=== PATIENT | female | born 1965 | race Caucasian/White ===

== ENCOUNTER 2017-11-07 18:32 | Observation (INO) | payer MEDICAID, SELFPAY ==
[2017-11-07] VITALS (9 sets, daily range): BP systolic 114–149; BP diastolic 57–86; PULSE 70–102; RESP 14–20; TEMP 36.5–36.9; O2SAT 94–95; BMI 30.5; BMI 30.2; BMI 30.3
--- NOTE | 2017-11-07 19:08 | EKG12_ITS ---
Test Reason : CP Blood Pressure : / mmHG Vent. Rate : 100 BPM Atrial Rate : 100 BPM P-R Int : 000 ms QRS Dur : 124 ms QT Int : 400 ms P-R-T Axes : 031 097 021 degrees QTc Int : 516 ms Ventricular-paced rhythm Biventricular pacemaker detected Abnormal ECG Confirmed by OLE MCCOY ([id number]), supervising film or videotape editor RADHA BETTS ([id number]) on 11/12/2017 2:43:54 PM Referred By: AMBIKA
--- NOTE | 2017-11-07 19:08 | RAD_ITS ---
STUDY: X-RAY CHEST REASON FOR EXAM: Female, 52 years old. Chest pain, headache TECHNIQUE: Single frontal view COMPARISON: February 05, 2017 FINDINGS: Stable left-sided pacemaker. The lungs are clear and expanded. There is no demonstrated pleural abnormality. Normal size heart. Normal mediastinum and remy. Normal visualized pulmonary arteries. Normal visualized aortic arch and descending thoracic aorta. Normal visualized thoracic spine. Normal visualized ribs, clavicles, and shoulders. There is no demonstrated abnormality of the visualized soft tissue structures of the upper abdomen. RAD/Chest 1 View (Portable) IMPRESSION: Normal x-ray examination of the chest. Electronically Signed: Franko Zurita DO at 19:30 EDT Tel [phone], Service support ,
[2017-11-07 19:26] LABS: Absolute Lymphocyte Count 1.99 X10^3/ul (0.83-4.51); Absolute Neutrophil Count 4.9 X10^3/uL (2.0-7.7); Basophil# 0.02 X10^3/uL; Basophil% 0.3 % (0-1); Eosinophil# 0.15 X10^3/uL; Hematocrit 36.4 % (37-47); Hemoglobin 11.5 g/dl (12.0-15.0); Lymphocyte # 1.99 X10^3/ul (4.0); Lymphocyte % 26.2 % (19-41); Mean Corp Hgb Conc 31.6 g/gl (32-36); Mean Corpuscular Hgb 27.4 pg (27.0-32.0); Mean Corpuscular Volume 86.7 fL (81-99); Mean Platelet Vol. 10.3 fl (6.2-12.0); Monocyte# 0.56 X10^3/uL; Monocyte% 7.4 % (0-10); Neutrophil # 4.85 X10^3/uL (2.7-7.7); Neutrophil % 63.7 % (47-70); Platelet Count 235 K/mm3 (150-450); RBC Distribution Width CV 15.3 % (11.6-14.6); RBC Distribution Width SD 48.5 fl (35.1-43.9); White Blood Count 7.6 K/mm3 (4.4-11.0)
[2017-11-07 19:28] LABS: POSITIVE COUNT NO; POSITIVE DIFFERENTIAL NO; POSITIVE MORPHOLOGY NO
[2017-11-07 19:55] LABS: Anion Gap 7 (5-15); BUN 14 mg/dL (7-18); BUN/Creat Ratio 15.4 RATIO (10-20); Calcium,Total 9.6 mg/dL (8.5-10.1); Chloride 103 mmol/L (98-107); Creatinine, Serum 0.91 mg/dL (0.55-1.02); EST Glomerular Filtration Rate 69 mL/min (>60); Est Glom Filt Rate - Afr Amer 84 mL/min (>60); Estimated Creatinine Clearance 76.44 ml/min; Glucose 184 mg/dL (74-106); Potassium 3.9 mmol/L (3.5-5.1); Sodium Level 138 mmol/L (136-145)
[2017-11-07] MEDS: Aspirin 81 MG TAB.CHEW PO (19:59)
--- NOTE | 2017-11-07 20:47 | ED.VISSUMM ---
- ER Visit Summary Date of Service: 11/07/17 Chief Complaint: Chest pain History of Present Illness: The patient is a 52 F sudden chest tightness at rest at 4 PM while sitting. No radicular symptoms. Complains of dyspnea. Dry allergic cough per patient. Denies tobacco history. Currently pain is a 7 out of 10. History of nonischemic cardiomyopathy, AICD placed in 2014 at [facility]. She states she had a heart cath at that time with no stenting. Diabetes, hypertension, hypercholesterolemia history. [facility] saw her special agent group insurance Dr. Isaacs on the . [place] saw him for racing heart. Holter monitor placed. Initially stated that she had a stress test at that time, however later found out it was an echocardiogram. Denies [place] history. Mom and dad with MIs in their 50s. Patient took a baby aspirin prior to arrival. No other complaints. Physical Examination: General: Alert and oriented ?3, no acute distress HEENT: Normocephalic, atraumatic. Moist mucosa membranes Neck: supple, nontender. Cardiovascular: Regular rate and rhythm, no murmurs Respiratory: Normal breath sounds, symmetric, no distress Abdomen: Soft, nontender, nondistended Extremities: Nontender, no edema, pulses intact ?4 Neuro: no focal neurological deficits. Test Results: EKG ventricular paced at 100, no ST or T-wave changes. Chest x-ray negative. Troponin negative. Emergency Department Course and Treatment: Patient EKG notes a paced rhythm. Given additional aspirin nitro series. Chest x-ray negative. Cardiac workup negative. Patient with moderate improvement with NTG. Discussed with hospitalist, Dr. Smith, evaluated the patient for admission. Heart score = 4. Treatment Plan: [] Disposition: admit Impression: Acute chest pain This note was generated with [employer] dictation software. It may contain incorrect words, spelling, and punctuation that were not noted in review of the chart prior to signing ED Disposition - Plan for ED Patient: Disposition: Acute Care Hospital [facility] Chief Complaint: Chest Pain Diagnosis: Chest pain Referrals: Mello Hull MD [Primary Care Provider] -
--- NOTE | 2017-11-07 20:52 | ED.DCSUM_ITS ---
- ER Visit Summary Date of Service: 11/07/17 Chief Complaint: Chest pain History of Present Illness: The patient is a 52 F sudden chest tightness at rest at 4 PM while sitting. No radicular symptoms. Complains of dyspnea. Dry allergic cough per patient. Denies tobacco history. Currently pain is a 7 out of 10. History of nonischemic cardiomyopathy, AICD placed in 2014 at [facility]. She states she had a heart cath at that time with no stenting. Diabetes, hypertension, hypercholesterolemia history. 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 Isaacs on the . [place] saw him for racing heart. Holter monitor placed. Initially stated that she had a stress test at that time, however later found out it was an echocardiogram. Denies [place] history. Mom and dad with MIs in their 50s. Patient took a baby aspirin prior to arrival. No other complaints. Physical Examination: General: Alert and oriented ?3, no acute distress HEENT: Normocephalic, atraumatic. Moist mucosa membranes Neck: supple, nontender. Cardiovascular: Regular rate and rhythm, no murmurs Respiratory: Normal breath sounds, symmetric, no distress Abdomen: Soft, nontender, nondistended Extremities: Nontender, no edema, pulses intact ?4 Neuro: no focal neurological deficits. Test Results: EKG ventricular paced at 100, no ST or T-wave changes. Chest x- ray negative. Troponin negative. Emergency Department Course and Treatment: Patient EKG notes a paced rhythm. Given additional aspirin nitro series. Chest x-ray negative. Cardiac workup negative. Patient with moderate improvement with NTG. Discussed with hospitalist , Dr. Smith, evaluated the patient for admission. Heart score = 4. Treatment Plan: [] Disposition: admit Impression: Acute chest pain This note was generated with MD [employer] dictation software. It may contain incorrect words, spelling, and punctuation that were not noted in review of the chart prior to signing ED Disposition - Plan for ED Patient: Disposition: Acute Care Hospital [facility] Chief Complaint: Chest Pain Diagnosis: Chest pain Referrals: Mello Hull MD [Primary Care Provider] -
--- NOTE | 2017-11-07 21:04 | PCM.HP.STD ---
Problem List (1) Chest pain Status: Acute Qualifiers: Chest pain type: chest pain on breathing Qualified Code(s): R07.1 - Chest pain on breathing; R07.81 - Pleurodynia History of Present Illness Date of Admission: 11/07/17 Chief Complaint: Chest [id number] in nature, worse on inspiration and coughing The patient is a 52 year old F who was seen in the emergency room at [facility] with chief complaint of precordial chest pain, it is nonradiating down her arm, up into her neck or through to her back. She describes the pain as being squeezing in nature, it started when she was at rest this afternoon approximately 4 hours ago, it was not accompanied by any diaphoresis, nausea, or vomiting. Patient rated the pain as being a 9 out of 10, she was given a nitroglycerin in the emergency room and at the time of my examination, she says it is 4 out of 10 with 10 being the worst pain. Patient does say that her chest pain worsens with cough or deep inspiration. Workup was performed in the emergency room which included an EKG which showed a paced rhythm at 100, chest x-ray was unremarkable except for the presence of an ICD, patient's labs were remarkable for an elevated blood sugar at 184, patient's troponin was unremarkable. On my examination, I was able to reproduce the patient's chest discomfort by pushing on her chest, she confirmed that this was the same discomfort that she was experiencing. 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 Patient has a history of a nonischemic cardiomyopathy and had a cardiac catheterization in 2014-she does not seem to know the results of this catheterization however. I was able to get some information from her high school coach Dr. Isaacs, he states that she had an echocardiogram performed in 2016 which showed an EF of 50%, he has no record of her ever having a stress test in his medical records. He states an event monitor was placed on the patient this month because she complained of palpitations. Since the patient is a type II diabetic, I feel she should be placed in observation status and have an echocardiogram tomorrow and a stress test. Patient is in agreement with this. Past Medical History Past Medical History (Chronic Problems): Chronic Problems (Last Reviewed 10/07/17 @ 11:55 by Carmelita Fernandes) Diabetes mellitus type 2 in obese (Chronic) Hypertension (Chronic) Restless leg syndrome (Chronic) Allergies simvastatin Allergy (Severe, Verified 10/07/17 11:55) Unknown Latex, Natural Rubber Allergy (Unknown, Verified 10/07/17 11:55) Rash Home Medications: Ambulatory Orders Medication Instructions Recorded Aspirin E.C. [Ecotrin] 81 mg PO DAILY@0800 04/18/13 Enalapril Maleate [Vasotec] 1.25 mg PO DAILY #30 tab 04/24/13 Furosemide [Lasix] 40 mg PO DAILY #30 tab 04/24/13 Magnesium Oxide [Mag-Ox 400] 400 mg PO BID #30 tab 06/01/13 pen needle, diabetic 31 gauge x See Dose Instructions .ROUTE 06/24/1707/18 .MEDSUPPLY #30 ea pen needle, diabetic 31 gauge x See Dose Instructions .ROUTE 06/24/1711/27 .MEDSUPPLY #100 ea pen needle, diabetic 29 gauge x See Dose Instructions .ROUTE 07/02/1707/16 .MEDSUPPLY #50 ea alogliptin 25 mg tablet 25 mg PO QDAY 08/12/17 atorvastatin 10 mg tablet 10 mg PO QDAY 08/12/17 carvedilol 12.5 mg tablet 25 mg PO BID tab 08/12/17 loratadine 10 mg tablet 10 mg PO QDAY 08/12/17 oxybutynin chloride 5 mg tablet 5 mg PO TID 08/12/17 pantoprazole 40 mg tablet,delayed 40 mg PO BID tab 08/12/17 release pramipexole 0.25 mg tablet 0.75 mg PO QDAY tab 08/12/17 spironolactone 25 mg tablet 25 mg PO QDAY 08/12/17 blood sugar diagnostic strips See Dose Instructions .ROUTE 10/07/17 .MEDSUPPLY #100 ea insulin glargine (U-100) 100 21 unit SC QDAY #15 ml 10/07/17 unit/mL (3 mL) subcutaneous pen insulin syringe-needle U-100 0.3 See Dose Instructions .ROUTE 10/07/17 mL 31 gauge x 11/27 .MEDSUPPLY #90 ea repaglinide 2 mg tablet See Label Instructions PO TID #240 10/07/17 tab metformin 500 mg tablet 500 mg PO .COMPLEX #150 tab 10/28/17 Surgical History: appendectomy, hysterectomy, - - Knee surgery, ICD placement Psychiatric History: No pertinent psych hx SOCIAL SERVICE MANAGER History: No pertinent SOCIAL SERVICE MANAGER history Lives: - - Patient lives with [id number] 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 Smoking Status: Never smoker Tobacco Use: Non-smoker Alcohol: Rare Drugs: None - *Family History Maternal History Items: Heart Disease - In her 50s-60s Paternal History Items: Heart Disease - At age 55 Review of Systems Constitutional: Denies: Anorexia, Chills, Fever, Night Sweats, Malaise, Weakness, Weight Change, Fatigue Eyes: Denies: Blurred vision, Cataracts, Conjunctivae Inflammation, Double vision, Drainage, Eyelid Inflammation, Pain HEENT: Denies: Difficulty Hearing, Difficulty Swallowing, Dysphasia, Ear Pain, Eye Pain, Head Aches, Hearing Changes, Nasal bleeding, Nasal Congestion, Post Nasal Drip Cardiovascular: Reports: Chest Pain, Chest Tightness. Denies: Claudication, Chest Pressure, Edema, Heaviness, Light Headedness, Orthopnea, Palpitations, Syncope Respiratory: Reports: Pleuritic Pain. Denies: Cough, Hemoptysis, Shortness of Breath, Shortness of breath at rest, Shortness of breath upon exertion, Sputum production, Wheezing Gastrointestinal: Denies: Abdominal Pain, Constipation, Diarrhea, Hematemesis, Hematochezia, Nausea, Melena, Vomiting Genitourinary: Denies: Dysuria, Frequency, Hematuria, Hesitancy, Incontinence, Nocturia, Urgency Gynecological: Denies: Breast symptoms Musculoskeletal: Denies: Back Pain, Foot Pain, Hand Pain, Joint Pain, Joint stiffness, Joint swelling, Joint Tenderness, Leg Pain Skin: Denies: Dryness, Jaundice, Pruritis, Rash Neurological: Denies: Balance problems, Blurred vision, Double vision, Slurred speech, Difficulty swallowing, Focal weakness, Headaches, Incoordination, Numbness, Tingling Psychiatric: Denies: Anxiety, Depression, Homicidal Ideations, Suicidal Ideations Endocrine: Denies: Change in Body Habitus, Heat/ Cold Intolerance, Polydipsia, Polyuria Hematologic/ Lymphatic: Denies: Adenopathy, Anemia, Easy Bruising, Easy Bleeding, Petechiae, Purpura VTE Information - Inpt Only VTE Present on Admission: No VTE Mechan Device Prophylaxis: SCD's VTE Pharm Prophylaxis ordered?: No Reason prophylaxis not ordered:: Treatment Not Indicated - SCD's ordered Patient Problems: Active and Suspected Problems (Last Reviewed 10/07/17 @ 11:55 by Carmelita Fernandes) Chest pain (Acute) - Physical Exam General: Alert, Oriented x3, Cooperative, No apparent distress, Well developed, Well nourished, - - Poor informant HEENT: Atraumatic, PERRLA, EOMI, Normocephalic Oral: Moist Mucosa Neck: Supple, No JVD, Negative Carotid Bruits, No Nuchal Rigidity, Trachea Midline, Thyroid Normal Size and Texture Lungs: Clear to auscultation, Normal air movement, No rhonchi, No wheeze, No rales Cardiovascular: Regular rate, Regular Rhythm, Normal S1, Normal S2, No murmurs, No Ectopic Activity, PMI Normal, No rub noted, No Gallop Abdomen: Bowel Sounds Present, Soft, Non Tender, Non-Distended, No hernias noted Extremities: No clubbing, No cyanosis, No edema, Capillary Refill Less than 3 Seconds Skin: No rashes, No breakdown Musculoskeletal: Tenderness - Tenderness to palpation of the chest wall is noted Neurological: Cranial nerves II-XII grossly intact, Neuro grossly intact, Sensory exam intact to light touch and pain, Coordination normal Psych/Mental Status: Normal Affect, Appropriate, Alert and oriented to time, place, person, mood and affect Vital Signs Temp Pulse Resp BP Pulse Ox 98.4 F 93 14 145/86 H 94 11/07/17 18:34 11/07/17 20:09 11/07/17 20:09 11/07/17 20:09 11/07/17 20:09 Oxygen Flow Rate (L/min) 2 Oxygen Delivery Method Room Air Weight: 93.894 kg Body Mass Index (BMI) 30.5 Laboratory Tests Past 24 Hrs 11/07/17 11/07/17 18:45 18:45 WBC 7.6 RBC 4.20 Hgb 11.5 L Hct 36.4 L MCV 86.7 MCH 27.4 MCHC 31.6 L RDW 15.3 H RDW Differential 48.5 H Plt Count 235 MPV 10.3 Immature Gran % (Auto) 0.400 Neut % (Auto) 63.7 Lymph % (Auto) 26.2 [place] % (Auto) 7.4 Eos % (Auto) 2.0 Baso % (Auto) 0.3 Absolute Neuts (auto) 4.9 Absolute Lymphs (auto) 1.99 Total Counted Not Reportable Sodium 138 Potassium 3.9 Chloride 103 Carbon Dioxide 28.0 Anion Gap 7 BUN 14 Creatinine 0.91 Estim Creat Clear Calc 76.44 Est GFR (MDRD) Af Amer 84 Est GFR (MDRD) Non-Af 69 BUN/Creatinine Ratio 15.4 Glucose 184 H Calcium 9.6 Troponin I < 0.02 Assessment/Plan Active and Suspected Problems (Last Reviewed 10/07/17 @ 11:55 by Carmelita Fernandes) Chest pain (Acute) #1 chest pain-this has a pleuritic component and is reproducible by chest pressure on my examination, I feel this is probably not cardiac in nature, however, patient is diabetic and her risk factors indicate to me that she should probably be worked up for the chest discomfort and have a stress test and echocardiogram. I will place her in observation status on PCU in order an echocardiogram and a resting pharmacological nuclear stress test tomorrow. Patient is okay with this approach #2 nonischemic cardiomyopathy by history-again the patient's last echocardiogram 2015 showed an intermediate ejection fraction of 50%, echocardiogram will be repeated during her hospital stay here #3 type 2 diabetes-2 the patient's oral blood pressure medications were nonformulary here, I will continue the patient's Glucophage and give her sliding scale insulin per protocol. Code Visit OBSV E&M: 19368 Initial observation care L3
--- NOTE | 2017-11-07 21:17 | HP.PCM_ITS ---
Problem List (1) Chest pain Status: Acute Qualifiers: Chest pain type: chest pain on breathing Qualified Code(s): R07.1 - Chest pain on breathing; R07.81 - Pleurodynia History of Present Illness Date of Admission: 11/07/17 Chief Complaint: Chest [id number] in nature, worse on inspiration and coughing The patient is a 52 year old F who was seen in the emergency room at [facility] with chief complaint of precordial chest pain, it is nonradiating down her arm, up into her neck or through to her back. She describes the pain as being squeezing in nature, it started when she was at rest this afternoon approximately 4 hours ago, it was not accompanied by any diaphoresis, nausea, or vomiting. Patient rated the pain as being a 9 out of 10 , she was given a nitroglycerin in the emergency room and at the time of my examination, she says it is 4 out of 10 with 10 being the worst pain. Patient does say that her chest pain worsens with cough or deep inspiration. Workup was performed in the emergency room which included an EKG which showed a paced rhythm at 100, chest x-ray was unremarkable except for the presence of an ICD, patient's labs were remarkable for an elevated blood sugar at 184, patient's troponin was unremarkable. On my examination, I was able to reproduce the patient's chest discomfort by pushing on her chest, she confirmed that this was the same discomfort that she was experiencing. Patient is a very poor informant, she initially told the emergency room physician that she had a stress test done 2 weeks ago-I confirmed with her electric switch tester that she did not have any testing done 2 weeks ago, only a placement of an event monitor. Patient has a history of a nonischemic cardiomyopathy and had a cardiac catheterization in 2014-she does not seem to know the results of this catheterization however. I was able to get some information from her electric switch tester Dr. Isaacs, he states that she had an echocardiogram performed in 2016 which showed an EF of 50%, he has no record of her ever having a stress test in his medical records. He states an event monitor was placed on the patient this month because she complained of palpitations. Since the patient is a type II diabetic, I feel she should be placed in observation status and have an echocardiogram tomorrow and a stress test. Patient is in agreement with this. Past Medical History Past Medical History (Chronic Problems): Chronic Problems (Last Reviewed 10/07/17 @ 11:55 by Carmelita Fernandes) Diabetes mellitus type 2 in obese (Chronic) Hypertension (Chronic) Restless leg syndrome (Chronic) Allergies simvastatin Allergy (Severe, Verified 10/07/17 11:55) Unknown Latex, Natural Rubber Allergy (Unknown, Verified 10/07/17 11:55) Rash Home Medications: Ambulatory Orders Medication Instructions Recorded Aspirin E.C. [Ecotrin] 81 mg PO DAILY@0800 04/18/13 Enalapril Maleate [Vasotec] 1.25 mg PO DAILY #30 tab 04/24/13 Furosemide [Lasix] 40 mg PO DAILY #30 tab 04/24/13 Magnesium Oxide [Mag-Ox 400] 400 mg PO BID #30 tab 06/01/13 pen needle, diabetic 31 gauge x See Dose Instructions .ROUTE 06/24/1707/18 .MEDSUPPLY #30 ea pen needle, diabetic 31 gauge x See Dose Instructions .ROUTE 06/24/1711/27 .MEDSUPPLY #100 ea pen needle, diabetic 29 gauge x See Dose Instructions .ROUTE 07/02/1707/16 .MEDSUPPLY #50 ea alogliptin 25 mg tablet 25 mg PO QDAY 08/12/17 atorvastatin 10 mg tablet 10 mg PO QDAY 08/12/17 carvedilol 12.5 mg tablet 25 mg PO BID tab 08/12/17 loratadine 10 mg tablet 10 mg PO QDAY 08/12/17 oxybutynin chloride 5 mg tablet 5 mg PO TID 08/12/17 pantoprazole 40 mg tablet,delayed 40 mg PO BID tab 08/12/17 release pramipexole 0.25 mg tablet 0.75 mg PO QDAY tab 08/12/17 spironolactone 25 mg tablet 25 mg PO QDAY 08/12/17 blood sugar diagnostic strips See Dose Instructions .ROUTE 10/07/17 .MEDSUPPLY #100 ea insulin glargine (U-100) 100 21 unit SC QDAY #15 ml 10/07/17 unit/mL (3 mL) subcutaneous pen insulin syringe-needle U-100 0.3 See Dose Instructions .ROUTE 10/07/17 mL 31 gauge x 11/27 .MEDSUPPLY #90 ea repaglinide 2 mg tablet See Label Instructions PO TID #240 10/07/17 tab metformin 500 mg tablet 500 mg PO .COMPLEX #150 tab 10/28/17 Surgical History: appendectomy, hysterectomy, - - Knee surgery, ICD placement Psychiatric History: No pertinent psych hx 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 [employer] History: 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[employer]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 [employer] history Lives: - - Patient lives with [id number] 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 Smoking Status: Never smoker Tobacco Use: Non-smoker Alcohol: Rare Drugs: None - *Family History Maternal History Items: Heart Disease - In her 50s-60s Paternal History Items: Heart Disease - At age 55 Review of Systems Constitutional: Denies: Anorexia, Chills, Fever, Night Sweats, Malaise, Weakness , Weight Change, Fatigue Eyes: Denies: Blurred vision, Cataracts, Conjunctivae Inflammation, Double vision, Drainage, Eyelid Inflammation, Pain HEENT: Denies: Difficulty Hearing, Difficulty Swallowing, Dysphasia, Ear Pain, Eye Pain, Head Aches, Hearing Changes, Nasal bleeding, Nasal Congestion, Post Nasal Drip Cardiovascular: Reports: Chest Pain, Chest Tightness. Denies: Claudication, Chest Pressure, Edema, Heaviness, Light Headedness, Orthopnea, Palpitations, Syncope Respiratory: Reports: Pleuritic Pain. Denies: Cough, Hemoptysis, Shortness of Breath, Shortness of breath at rest, Shortness of breath upon exertion, Sputum production, Wheezing Gastrointestinal: Denies: Abdominal Pain, Constipation, Diarrhea, Hematemesis, Hematochezia, Nausea, Melena, Vomiting Genitourinary: Denies: Dysuria, Frequency, Hematuria, Hesitancy, Incontinence, Nocturia, Urgency Gynecological: Denies: Breast symptoms Musculoskeletal: Denies: Back Pain, Foot Pain, Hand Pain, Joint Pain, Joint stiffness, Joint swelling, Joint Tenderness, Leg Pain Skin: Denies: Dryness, Jaundice, Pruritis, Rash Neurological: Denies: Balance problems, Blurred vision, Double vision, Slurred speech, Difficulty swallowing, Focal weakness, Headaches, Incoordination, Numbness, Tingling Psychiatric: Denies: Anxiety, Depression, Homicidal Ideations, Suicidal Ideations Endocrine: Denies: Change in Body Habitus, Heat/ Cold Intolerance, Polydipsia, Polyuria Hematologic/ Lymphatic: Denies: Adenopathy, Anemia, Easy Bruising, Easy Bleeding , Petechiae, Purpura VTE Information - Inpt Only VTE Present on Admission: No VTE Mechan Device Prophylaxis: SCD's VTE Pharm Prophylaxis ordered?: No Reason prophylaxis not ordered:: Treatment Not Indicated - SCD's ordered Patient Problems: Active and Suspected Problems (Last Reviewed 10/07/17 @ 11:55 by Carmelita Fernandes ) Chest pain (Acute) - Physical Exam General: Alert, Oriented x3, Cooperative, No apparent distress, Well developed, Well nourished, - - Poor informant HEENT: Atraumatic, PERRLA, EOMI, Normocephalic Oral: Moist Mucosa Neck: Supple, No JVD, Negative Carotid Bruits, No Nuchal Rigidity, Trachea Midline, Thyroid Normal Size and Texture Lungs: Clear to auscultation, Normal air movement, No rhonchi, No wheeze, No rales Cardiovascular: Regular rate, Regular Rhythm, Normal S1, Normal S2, No murmurs, No Ectopic Activity, PMI Normal, No rub noted, No Gallop Abdomen: Bowel Sounds Present, Soft, Non Tender, Non-Distended, No hernias noted Extremities: No clubbing, No cyanosis, No edema, Capillary Refill Less than 3 Seconds Skin: No rashes, No breakdown Musculoskeletal: Tenderness - Tenderness to palpation of the chest wall is noted Neurological: Cranial nerves II-XII grossly intact, Neuro grossly intact, Sensory exam intact to light touch and pain, Coordination normal Psych/Mental Status: Normal Affect, Appropriate, Alert and oriented to time, place, person, mood and affect Vital Signs Temp Pulse Resp BP Pulse Ox 98.4 F 93 14 145/86 H 94 11/07/17 18:34 11/07/17 20:09 11/07/17 20:09 11/07/17 20:09 11/07/17 20:09 Oxygen Flow Rate (L/min) 2 Oxygen Delivery Method Room Air Weight: 93.894 kg Body Mass Index (BMI) 30.5 Laboratory Tests Past 24 Hrs 11/07/17 11/07/17 18:45 18:45 WBC 7.6 RBC 4.20 Hgb 11.5 L Hct 36.4 L MCV 86.7 MCH 27.4 MCHC 31.6 L RDW 15.3 H RDW Differential 48.5 H Plt Count 235 MPV 10.3 Immature Gran % (Auto) 0.400 Neut % (Auto) 63.7 Lymph % (Auto) 26.2 [place] % (Auto) 7.4 Eos % (Auto) 2.0 Baso % (Auto) 0.3 Absolute Neuts (auto) 4.9 Absolute Lymphs (auto) 1.99 Total Counted Not Reportable Sodium 138 Potassium 3.9 Chloride 103 Carbon Dioxide 28.0 Anion Gap 7 BUN 14 Creatinine 0.91 Estim Creat Clear Calc 76.44 Est GFR (MDRD) Af Amer 84 Est GFR (MDRD) Non-Af 69 BUN/Creatinine Ratio 15.4 Glucose 184 H Calcium 9.6 Troponin I < 0.02 Assessment/Plan Active and Suspected Problems (Last Reviewed 10/07/17 @ 11:55 by Carmelita Fernandes ) Chest pain (Acute) #1 chest pain-this has a pleuritic component and is reproducible by chest pressure on my examination, I feel this is probably not cardiac in nature, however, patient is diabetic and her risk factors indicate to me that she should probably be worked up for the chest discomfort and have a stress test and echocardiogram. I will place her in observation status on PCU in order an echocardiogram and a resting pharmacological nuclear stress test tomorrow. Patient is okay with this approach #2 nonischemic cardiomyopathy by history-again the patient's last echocardiogram 2015 showed an intermediate ejection fraction of 50%, echocardiogram will be repeated during her hospital stay here #3 type 2 diabetes-2 the patient's oral blood pressure medications were nonformulary here, I will continue the patient's Glucophage and give her sliding scale insulin per protocol. Code Visit OBSV E&M: 55776 Initial observation care L3
[2017-11-07] MEDS: Carvedilol 25 MG Tablet PO (23:02)
[2017-11-07] MEDS: Pantoprazole Sodium 40 MG Tablet PO (23:04)
[2017-11-07] MEDS: Atorvastatin Calcium 10 MG Tablet PO (23:04)
[2017-11-07] MEDS: Magnesium Oxide 400 MG Tablet PO (23:04)
[2017-11-08 00:26] LABS: Bedside Glucose 146 mg/dL (70-110)
--- NOTE | 2017-11-08 01:33 | NURSING ---
Order from MD to change pt order from Oxybutynin 5 mg TID to Oxybutynin 15 mg daily. Pharmacy dosed Detrol as a therapeutic interchange to Oxybutynin.
[2017-11-08 03:01] VITALS: PULSE 87
[2017-11-08 03:04] VITALS: BP 99/63; PULSE 82; RESP 12; TEMP 36.6; O2SAT 94
[2017-11-08 03:40] LABS: Absolute Lymphocyte Count 2.16 X10^3/ul (0.83-4.51); Absolute Neutrophil Count 3.2 X10^3/uL (2.0-7.7); Basophil# 0.03 X10^3/uL; Basophil% 0.5 % (0-1); Eosinophil# 0.16 X10^3/uL; Eosinophils% 2.6 % (0-5); Hematocrit 31.8 % (37-47); Hemoglobin 10.3 g/dl (12.0-15.0); Lymphocyte # 2.16 X10^3/ul (4.0); Lymphocyte % 35.6 % (19-41); Mean Corp Hgb Conc 32.4 g/gl (32-36); Mean Corpuscular Hgb 28.2 pg (27.0-32.0); Mean Corpuscular Volume 87.1 fL (81-99); Mean Platelet Vol. 10.5 fl (6.2-12.0); Monocyte# 0.49 X10^3/uL; Monocyte% 8.1 % (0-10); Neutrophil # 3.22 X10^3/uL (2.7-7.7); POSITIVE COUNT NO; POSITIVE DIFFERENTIAL NO; POSITIVE MORPHOLOGY NO; Platelet Count 191 K/mm3 (150-450); RBC Distribution Width CV 15.3 % (11.6-14.6); Red Blood Count 3.65 M/mm3 (4.2-5.4); White Blood Count 6.1 K/mm3 (4.4-11.0)
[2017-11-08 03:54] LABS: Prothrombin Time (Protime)PT. 13.3 SECONDS (11.7-14.9)
[2017-11-08 03:55] LABS: Partial Thromboplast Time 28.9 Seconds (24.1-36.2)
[2017-11-08 04:08] LABS: Anion Gap 10 (5-15); BUN 11 mg/dL (7-18); BUN/Creat Ratio 15.1 RATIO (10-20); Calcium,Total 9.1 mg/dL (8.5-10.1); Chloride 107 mmol/L (98-107); Creatinine, Serum 0.73 mg/dL (0.55-1.02); EST Glomerular Filtration Rate 89 mL/min (>60); Est Glom Filt Rate - Afr Amer 108 mL/min (>60); Estimated Creatinine Clearance 95.28 ml/min; Glucose 69 mg/dL (74-106); Potassium 3.6 mmol/L (3.5-5.1); Sodium Level 143 mmol/L (136-145)
[2017-11-08 05:26] VITALS: BP 98/56; PULSE 56; RESP 14; TEMP 36.6; O2SAT 94
[2017-11-08] MEDS: Aspirin E.C. 81 MG Tablet PO (05:38)
--- NOTE | 2017-11-08 05:39 | NURSING ---
Zestril not given prior to stress test as BP and HR on low side. See vitals.
--- NOTE | 2017-11-08 05:43 | NURSING ---
Blood sugar 78 this AM. Pt NPO for stress test. Pt given 120 mL of orange juice. Will notify stress lab.
--- NOTE | 2017-11-08 05:55 | EKG12_ITS ---
Test Reason : AM EKG Blood Pressure : / mmHG Vent. Rate : 068 BPM Atrial Rate : 068 BPM P-R Int : 128 ms QRS Dur : 132 ms QT Int : 454 ms P-R-T Axes : 044 054 041 degrees QTc Int : 482 ms Atrial-sensed ventricular-paced rhythm with occasional AV dual-paced complexes Biventricular pacemaker detected Abnormal ECG When compared with ECG of 05-FEB-2017 09:38, Vent. rate has decreased BY 10 BPM Confirmed by OLE MCCOY ([id number]), content editor RADHA BETTS ([id number]) on 11/13/2017 8:52:27 AM Referred By: MIGUEL Confirmed By:OLE MCCOY
--- NOTE | 2017-11-08 05:55 | ECHOD_ITS ---
Reason For Study: CHEST PAIN Procedure This was a 2D Doppler, Color Flow transthoracic echocardiogram. Exam performed in department. Left Ventricle Mildly dilated left ventricle. The estimated ejection fraction is 50-55 %. Stage 1 diastolic dysfunction. There is mild global hypokinesis of the left ventricle. Right Ventricle Mildly dilated right ventricle. ICD or pacer leads identified within the right ventricle. Normal systolic function. Atria Normal left atrium. Normal right atrium. Normal atrial septum. Mitral Valve The mitral valve is structurally normal. No prolapse or stenosis seen. Tricuspid Valve Normal tricuspid valve. Trivial tricuspid valve insufficiency. Right ventricular systolic pressure estimated to be 21 mmHg. Aortic Valve Trisinus/trileaflet aortic valve. Normal aortic valve. Pulmonic Valve The pulmonic valve is not well visualized. Great Vessels Normal aortic root. Normal arch. Normal inferior vena cava. Inferior vena cava collapse with sniff. Pericardium/Pleural No pericardial effusion. Medication Diluted definity 2.0ml given slow IV push to enhance endocardial definition. MMode/2D Measurements & Calculations LVIDd: 5.1 cm IVSd: 0.76 cm Ao root diam: 2.9 cm LVIDs: 3.6 cm LVPWd: 0.79 cm LA dimension: 3.6 cm RVDd: 3.5 cm FS: 29.5 % LAV(MOD-bp): 46.5 ml LAV(MOD-bp) Indexed: 22.3 ml/m2 LA A4 area: 16.9 cm2 RA A4 area: 15.4 cm2 LAV(MOD-sp2): 43.0 ml LAV(MOD-sp4): 49.5 ml Doppler Measurements & Calculations MV E max saeid: 68.1 cm/sec Lat Peak E' Saeid: 6.1 cm/sec Med Peak E' Saeid: 5.0 cm/sec MV A max saeid: 88.1 cm/sec E/E' lat: 11.2 E/E' med: 13.7 MV E/A: 0.77 Ao V2 max: 115.4 cm/sec LV V1 max: 89.6 cm/sec PA V2 max: 110.9 cm/sec Ao max P.3 mmHg LV V1 max P.2 mmHg TR max saeid: 202.2 cm/sec TR max P.4 mmHg Interpretation Summary Mildly dilated left ventricle. The estimated ejection fraction is 50-55 %. Stage 1 diastolic dysfunction. There is mild global hypokinesis of the left ventricle. Mildly dilated right ventricle. Trivial tricuspid valve insufficiency. Right ventricular systolic pressure estimated to be 21 mmHg. Compared to echo report dated 08/10/2013, LV function has markedly improved from 15% to 50-55%. Ordering Physician: Julian Ham Referring Physician: Mello Hull Performed By: Lori Ruffin RDCS, RVT
[2017-11-08 07:01] LABS: Bedside Glucose 78 mg/dL (70-110)
[2017-11-08 07:39] LABS: Cholesterol 112 mg/dL (200); High Density Lipoprotein 38 mg/dL; Triglycerides 129 mg/dL; Very Low Density Lipoprotein 26 mg/dL (5-40)
--- NOTE | 2017-11-08 08:42 | STRESSREP ---
Stress Test Report Date: 11/08/2017 Procedure: Pharmacologic stress nuclear imaging study Indications: Chest pain; cardiomyopathy; ICD Consent: Per the patient Procedure: The patient underwent pharmacologic (Regadenoson) evaluation with a peak heart rate of 112 beats per minute (66 predicted maximal heart rate) and a peak blood pressure of 100/50 mmHg. The baseline ECG demonstrated electronic ventricular pacemaker. The peak pharmacologic ECG demonstrated electronic ventricular pacemaker. There were no cardiac dysrhythmias pretest, during pharmacologic infusion, or recovery. There was no complaint of chest discomfort during pharmacologic infusion or recovery. The examination was discontinued secondary to completion of protocol. Impression: 1. Pharmacologic (Regadenoson) evaluation 2. Peak pharmacologic ECG with continued electronic ventricular pacemaker. 3. There were no cardiac dysrhythmias pretest, during pharmacologic infusion, or recovery 4. Nuclear images pending Myocardial perfusion imaging study: Technique: The patient was injected with 14.1 millicuries of technetium 99m Cardiolite and subsequently rest SPECT Cardiolite nuclear imaging was obtained in the horizontal long, vertical long, and short axis views. The patient underwent pharmacologic (Regadenoson) evaluation with a peak heart rate of 112 beats per minute (66 % percent predicted maximal heart rate) and a peak blood pressure of 100/50 mmHg. The patient was injected with 44.4 millicuries of technetium 99m Cardiolite and subsequently stress SPECT Cardiolite nuclear imaging was obtained in the horizontal long, vertical long, and short axis views. A gated Cardiolite study at peak stress was obtained. Interpretation: Rest and stress SPECT Cardiolite nuclear imaging status post realignment, normalization, and attenuation correction demonstrate rest and area of decreased tracer uptake in the distal anterior segments which appears to improve/normalize following stress. Both rest and stress SPECT Cardiolite nuclear imaging demonstrate a small area of diminished tracer uptake in the apical segments without change between rest and stress.. There is end systolic thickening and brightening. The gated Cardiolite study demonstrates myocardial thickening and inward wall motion. The reported LVEF is 59 %. Impression: 1. Rest and stress SPECT cardiac nuclear imaging demonstrate an area of decreased tracer uptake in the distal anterior segments at rest which appear to improve/normalize following stress appearing compatible with shifting soft tissue attenuation/artifact as well as findings compatible with physiologic apical thinning with no myocardial perfusion changes consider diagnostic for associated stress-induced myocardial ischemia. 2. The gated Cardiolite study reports an LVEF of 59 %. This note was generated with [employer] software. It may contain incorrect words, spelling, and punctuation that were not noted in checking the note before signing.
--- NOTE | 2017-11-08 09:54 | PCM.DC ---
- Discharge Diagnoses Current Active Problems: Current Active and Chronic Problems (Last Reviewed 10/07/17 @ 11:55 by Carmelita Fernandes) Chest pain (Acute) You will use the following diet at home:: Calorie/Carbohydrate Controlled (specify 1200, 1400, etc), Cardiac Discharge Activity: Return to Normal Activity Call your doctor if you observe: Shortness of breath, Dizziness, Fainting spells, Chest pain, Increased palpitations (irregular heartbeat) Allergies/Adverse Reactions: Allergies simvastatin Allergy (Severe, Verified 10/07/17 11:55) Unknown Latex, Natural Rubber Allergy (Unknown, Verified 10/07/17 11:55) Rash Medications to take at Discharge Aspirin E.C. [Ecotrin] 81 mg PO DAILY 04/18/13 Furosemide [Lasix] 40 mg PO DAILY #30 tab 04/24/13 Magnesium Oxide [Mag-Ox 400] 400 mg PO BID #30 tab 06/01/13 alogliptin 25 mg tablet 25 mg PO DAILY 08/12/17 atorvastatin 10 mg tablet 10 mg PO DAILY 08/12/17 carvedilol 12.5 mg tablet 25 mg PO BID tab 08/12/17 loratadine 10 mg tablet 10 mg PO DAILY 08/12/17 oxybutynin chloride 5 mg tablet 15 mg PO DAILY 08/12/17 pantoprazole 40 mg tablet,delayed release 40 mg PO BID tab 08/12/17 pramipexole 0.25 mg tablet 0.75 mg PO QHS tab 08/12/17 spironolactone 25 mg tablet 25 mg PO DAILY 08/12/17 repaglinide 2 mg tablet See Label Instructions PO TID #240 tab 10/07/17 metformin 500 mg tablet 500 mg PO .COMPLEX #150 tab 10/28/17 Enalapril Maleate [Vasotec] 2.5 mg PO DAILY 11/07/17 Insulin Glargine,Hum.rec.anlog [Basaglar Kwikpen U-100] 21 unit SC DAILY 11/07/17 Primary Care Physician: Mello Hull MD [Primary Care Provider] - Please follow up with your Primary Care Physician in: 1 Week Please Follow Up With: Tobias Isaacs MD When: As scheduled Proposed Discharge Date: 11/08/17
--- NOTE | 2017-11-08 10:05 | DCINST_ITS ---
- Discharge Diagnoses Current Active Problems: Current Active and Chronic Problems (Last Reviewed 10/07/17 @ 11:55 by Carmelita Fernandes) Chest pain (Acute) You will use the following diet at home:: Calorie/Carbohydrate Controlled ( specify 1200, 1400, etc), Cardiac Discharge Activity: Return to Normal Activity Call your doctor if you observe: Shortness of breath, Dizziness, Fainting spells , Chest pain, Increased palpitations (irregular heartbeat) Allergies/Adverse Reactions: Allergies simvastatin Allergy (Severe, Verified 10/07/17 11:55) Unknown Latex, Natural Rubber Allergy (Unknown, Verified 10/07/17 11:55) Rash Medications to take at Discharge Aspirin E.C. [Ecotrin] 81 mg PO DAILY 04/18/13 Furosemide [Lasix] 40 mg PO DAILY #30 tab 04/24/13 Magnesium Oxide [Mag-Ox 400] 400 mg PO BID #30 tab 06/01/13 alogliptin 25 mg tablet 25 mg PO DAILY 08/12/17 atorvastatin 10 mg tablet 10 mg PO DAILY 08/12/17 carvedilol 12.5 mg tablet 25 mg PO BID tab 08/12/17 loratadine 10 mg tablet 10 mg PO DAILY 08/12/17 oxybutynin chloride 5 mg tablet 15 mg PO DAILY 08/12/17 pantoprazole 40 mg tablet,delayed release 40 mg PO BID tab 08/12/17 pramipexole 0.25 mg tablet 0.75 mg PO QHS tab 08/12/17 spironolactone 25 mg tablet 25 mg PO DAILY 08/12/17 repaglinide 2 mg tablet See Label Instructions PO TID #240 tab 10/07/17 metformin 500 mg tablet 500 mg PO .COMPLEX #150 tab 10/28/17 Enalapril Maleate [Vasotec] 2.5 mg PO DAILY 11/07/17 Insulin Glargine,Hum.rec.anlog [Basaglar Kwikpen U-100] 21 unit SC DAILY Primary Care Physician: Mello Hull MD [Primary Care Provider] - Please follow up with your Primary Care Physician in: 1 Week Please Follow Up With: Tobias Isaacs MD When: As scheduled Proposed Discharge Date: 11/08/17
--- NOTE | 2017-11-08 10:08 | PCM.DC.SUM ---
Discharge Date and Diagnosis Date of Admission: 11/07/17 Date of Discharge: 11/08/17 - Primary Discharge Diagnosis Active and Suspected Problems (Last Reviewed 10/07/17 @ 11:55 by Carmelita Fernandes) 1. Chest pain- ACS ruled out. - Secondary Discharge Diagnosis Chronic Problems (Last Reviewed 10/07/17 @ 11:55 by Carmelita Fernandes) Diabetes mellitus type 2 in obese (Chronic) Hypertension (Chronic) Restless leg syndrome (Chronic) Hyperlipidemia Hospital Course and Treatment Imaging Results: Diagnostic Data Chest X-Ray 11/07/17 19:08 IMPRESSION: Normal x-ray examination of the chest. Electronically Signed: Franko Zurita DO at 19:30 EDT Tel [phone], Service support , Operations: None Procedures: 2-D Echocardiogram, Stress test Summary of Care Provided: The patient is a 52 year old F admitted 11/07/17 due to chest pain. Patient has a past medical history of hypertension, type 2 diabetes mellitus, restless leg syndrome, nonischemic cardiomyopathy status post ICD. Patient follows with Dr. Isaacs, [facility] cardiology. Chest x-ray on admission unremarkable. Troponin negative ?3. Patient underwent nuclear stress test which was negative for ischemia. Echocardiogram pending and will be reviewed prior to discharge. Patient had a previous echocardiogram in 2016 which showed an ejection fraction of 50%. Vital signs stable at discharge. Patient complains of 2/10 chest tightness. She reports she has been under increased stress lately. ACS ruled out. Patient will follow up with primary care physician in 1 week and cardiology as scheduled. General: Alert, Oriented x3, Cooperative, No apparent distress, Well developed, Well nourished HEENT: Atraumatic, PERRLA, EOMI, Normocephalic Oral: Moist Mucosa Neck: Supple, No JVD, Negative Carotid Bruits, No Nuchal Rigidity, Trachea Midline, Thyroid Normal Size and Texture Lungs: Clear to auscultation, Normal air movement, No rhonchi, No wheeze, No rales Cardiovascular: Regular rate, Regular Rhythm, Normal S1, Normal S2, No murmurs Abdomen: Bowel Sounds Present, Soft, Non Tender, Non-Distended, No hernias noted Extremities: No clubbing, No cyanosis, No edema, Capillary Refill Less than 3 Seconds Skin: No rashes, No breakdown Musculoskeletal: No tenderness to palpation Neurological: Cranial nerves II-XII grossly intact, Neuro grossly intact Psych/Mental Status: Normal Affect, Appropriate Patient seen and examined prior to discharge. Physical assessment as noted above. Patient is stable for discharge home with further follow-up with primary care physician and cardiology. This patient was seen by OVIDIO Gutierrez under the supervision of Dr. Dobson. Discharge Diet: Low fat/ Low Cholesterol, Carb Control Diet Discharge Activity: Return to Normal Activity Call your doctor if you observe: Shortness of breath, Dizziness, Fainting spells, Chest pain, Increased palpitations (irregular heartbeat) Home Medications: Medications to take at Discharge Aspirin E.C. [Ecotrin] 81 mg PO DAILY 04/18/13 Furosemide [Lasix] 40 mg PO DAILY #30 tab 04/24/13 Magnesium Oxide [Mag-Ox 400] 400 mg PO BID #30 tab 06/01/13 alogliptin 25 mg tablet 25 mg PO DAILY 08/12/17 atorvastatin 10 mg tablet 10 mg PO DAILY 08/12/17 carvedilol 12.5 mg tablet 25 mg PO BID tab 08/12/17 loratadine 10 mg tablet 10 mg PO DAILY 08/12/17 oxybutynin chloride 5 mg tablet 15 mg PO DAILY 08/12/17 pantoprazole 40 mg tablet,delayed release 40 mg PO BID tab 08/12/17 pramipexole 0.25 mg tablet 0.75 mg PO QHS tab 08/12/17 spironolactone 25 mg tablet 25 mg PO DAILY 08/12/17 repaglinide 2 mg tablet See Label Instructions PO TID #240 tab 10/07/17 metformin 500 mg tablet 500 mg PO .COMPLEX #150 tab 10/28/17 Enalapril Maleate [Vasotec] 2.5 mg PO DAILY 11/07/17 Insulin Glargine,Hum.rec.anlog [Basaglar Kwikpen U-100] 21 unit SC DAILY 11/07/17 Primary Care Physician: Mello Hull MD [Primary Care Provider] - Please follow up with your Primary Care Physician in: 1 Week Please Follow Up With: Tobias Isaacs MD When: As scheduled Disposition: Home Minutes spent on discharge:: 35 Patient Condition:: Stable Medical Necessity - Tobacco Use Smoking Status: Never smoker Tobacco Use: Non-smoker Meaningful Use Info Meaningful Use Diagnoses (Choose all that apply): None applicable
--- NOTE | 2017-11-08 10:19 | DS.PCM_ITS ---
Discharge Date and Diagnosis Date of Admission: 11/07/17 Date of Discharge: 11/08/17 - Primary Discharge Diagnosis Active and Suspected Problems (Last Reviewed 10/07/17 @ 11:55 by Carmelita Fernandes ) 1. Chest pain- ACS ruled out. - Secondary Discharge Diagnosis Chronic Problems (Last Reviewed 10/07/17 @ 11:55 by Carmelita Fernandes) Diabetes mellitus type 2 in obese (Chronic) Hypertension (Chronic) Restless leg syndrome (Chronic) Hyperlipidemia Hospital Course and Treatment Imaging Results: Diagnostic Data Chest X-Ray 11/07/17 19:08 IMPRESSION: Normal x-ray examination of the chest. Electronically Signed: Franko Zurita DO at 19:30 EDT Tel [phone], Service support , Operations: None Procedures: 2-D Echocardiogram, Stress test Summary of Care Provided: The patient is a 52 year old F admitted 11/07/17 due to chest pain. Patient has a past medical history of hypertension, type 2 diabetes mellitus, restless leg syndrome, nonischemic cardiomyopathy status post ICD. Patient follows with Dr. Isaacs, [facility] cardiology. Chest x-ray on admission unremarkable. Troponin negative ?3. Patient underwent nuclear stress test which was negative for ischemia. Echocardiogram pending and will be reviewed prior to discharge. Patient had a previous echocardiogram in 2016 which showed an ejection fraction of 50%. Vital signs stable at discharge. Patient complains of 2/10 chest tightness. She reports she has been under increased stress lately. ACS ruled out. Patient will follow up with primary care physician in 1 week and cardiology as scheduled. General: Alert, Oriented x3, Cooperative, No apparent distress, Well developed, Well nourished HEENT: Atraumatic, PERRLA, EOMI, Normocephalic Oral: Moist Mucosa Neck: Supple, No JVD, Negative Carotid Bruits, No Nuchal Rigidity, Trachea Midline, Thyroid Normal Size and Texture Lungs: Clear to auscultation, Normal air movement, No rhonchi, No wheeze, No rales Cardiovascular: Regular rate, Regular Rhythm, Normal S1, Normal S2, No murmurs Abdomen: Bowel Sounds Present, Soft, Non Tender, Non-Distended, No hernias noted Extremities: No clubbing, No cyanosis, No edema, Capillary Refill Less than 3 Seconds Skin: No rashes, No breakdown Musculoskeletal: No tenderness to palpation Neurological: Cranial nerves II-XII grossly intact, Neuro grossly intact Psych/Mental Status: Normal Affect, Appropriate Patient seen and examined prior to discharge. Physical assessment as noted above. Patient is stable for discharge home with further follow-up with primary care physician and cardiology. This patient was seen by OVIDIO Gutierrez under the supervision of Dr. Dobson. Discharge Diet: Low fat/ Low Cholesterol, Carb Control Diet Discharge Activity: Return to Normal Activity Call your doctor if you observe: Shortness of breath, Dizziness, Fainting spells , Chest pain, Increased palpitations (irregular heartbeat) Home Medications: Medications to take at Discharge Aspirin E.C. [Ecotrin] 81 mg PO DAILY 04/18/13 Furosemide [Lasix] 40 mg PO DAILY #30 tab 04/24/13 Magnesium Oxide [Mag-Ox 400] 400 mg PO BID #30 tab 06/01/13 alogliptin 25 mg tablet 25 mg PO DAILY 08/12/17 atorvastatin 10 mg tablet 10 mg PO DAILY 08/12/17 carvedilol 12.5 mg tablet 25 mg PO BID tab 08/12/17 loratadine 10 mg tablet 10 mg PO DAILY 08/12/17 oxybutynin chloride 5 mg tablet 15 mg PO DAILY 08/12/17 pantoprazole 40 mg tablet,delayed release 40 mg PO BID tab 08/12/17 pramipexole 0.25 mg tablet 0.75 mg PO QHS tab 08/12/17 spironolactone 25 mg tablet 25 mg PO DAILY 08/12/17 repaglinide 2 mg tablet See Label Instructions PO TID #240 tab 10/07/17 metformin 500 mg tablet 500 mg PO .COMPLEX #150 tab 10/28/17 Enalapril Maleate [Vasotec] 2.5 mg PO DAILY 11/07/17 Insulin Glargine,Hum.rec.anlog [Basaglar Kwikpen U-100] 21 unit SC DAILY Primary Care Physician: Mello Hull MD [Primary Care Provider] - Please follow up with your Primary Care Physician in: 1 Week Please Follow Up With: Tobias Isaacs MD When: As scheduled Disposition: Home Minutes spent on discharge:: 35 Patient Condition:: Stable Medical Necessity - Tobacco Use Smoking Status: Never smoker Tobacco Use: Non-smoker Meaningful Use Info Meaningful Use Diagnoses (Choose all that apply): None applicable
[2017-11-08] MEDS: Carvedilol 25 MG Tablet PO (10:27)
[2017-11-08] MEDS: Furosemide 40 MG Tablet PO (10:27)
[2017-11-08] MEDS: Spironolactone 25 MG Tablet PO (10:28)
[2017-11-08] MEDS: Pantoprazole Sodium 40 MG Tablet PO (10:28)
[2017-11-08] MEDS: Lisinopril 2.5 MG Tablet PO (10:28)
[2017-11-08] MEDS: Magnesium Oxide 400 MG Tablet PO (10:28)
[2017-11-08] MEDS: Glucerna Shake 120 ML LIQUID PO (10:30)
== END 2017-11-08 09:56 | disposition home or self-care (01) ==
LOC: ED 20:52 → PCU 21:08
PROVIDERS: Admitting Provider Internal Medicine; Emergency Provider Emergency Medicine; Family Provider Family Medicine; PCP Family Medicine; Visit Provider Family Medicine
DX: R07.89 Other chest pain (principal); Z95.810 Presence of automatic (implantable) cardiac defibrillator; I10 Essential (primary) hypertension; E11.9 Type 2 diabetes mellitus without complications; I42.9 Cardiomyopathy, unspecified; R07.81 Pleurodynia; Z79.899 Other long term (current) drug therapy; Z79.4 Long term (current) use of insulin; G25.81 Restless legs syndrome; E66.9 Obesity, unspecified; Z68.30 Body mass index [BMI] 30.0-30.9, adult; Z71.3 Dietary counseling and surveillance; Z79.82 Long term (current) use of aspirin; M19.90 Unspecified osteoarthritis, unspecified site; E78.5 Hyperlipidemia, unspecified
CPT/HCPCS: 36415; 71045; 78452; 80048; 80061; 82962; 83735; 84484; 85025; 85610; 85730; 93005; 93017; 93306; 97802; 99218; 99285; A9500; Q9957; A4216; C8929; G0378; J2785

== ENCOUNTER → 2018-03-04 13:30 | Outpatient (CLI) | payer MEDICAID, SELFPAY ==
[2018-03-04 13:57] LABS: D-Dimer Quantitative (DVT/PE) 0.65 FEU/ug/m (0.27-0.49)
== END ==
PROVIDERS: Visit Provider Registered Nurse
DX: R07.1 Chest pain on breathing (principal); R07.81 Pleurodynia
CPT/HCPCS: 85379

== ENCOUNTER 2018-03-04 14:58 | Emergency (ER) | payer MEDICAID, SELFPAY ==
[2018-03-04 14:59] VITALS: BP 142/82; PULSE 55; RESP 18; TEMP 36.1; O2SAT 100; BMI 32.1
--- NOTE | 2018-03-04 15:52 | ED.DCSUM_ITS ---
- ER Visit Summary Date of Service: 03/04/18 Chief Complaint: Chest pain and shortness of breath History of Present Illness: The patient is a 52 F who presents for chest pain and shortness of breath that started yesterday. Patient was mercedes corn when it began. She describes it as a tightness and a squeezing sensation across the anterior chest both right and left, with radiation into the left shoulder. Patient denies any nausea, vomiting, abdominal pain, fever, congestion, rhinorrhea, calf pain or swelling. She has associated cough and shortness of breath, and pain is worsened by coughing and breathing deeply. Relieved by nothing. Pain is been constant since onset with waxing and waning in intensity. Patient denies any pain free interval since onset. She was seen by the nurse practitioner at her primary care doctor's office today, and had an elevated d-dimer. She was referred to the emergency department for further workup. She has a pacemaker/AICD that has a low battery. She is scheduled for device replacement in 1 week at [facility]. Patient had recent long car ride within the last 2 months. Denies surgery, history of DVT or PE, cancer, exogenous hormone use, or smoking. Physical Examination: Vital signs: afebrile, hemodynamically stable, no hypoxia on room air General: well nourished, well developed, in no distress Skin: warm, dry, no rash, no pallor HEENT: normocephalic and atraumatic; PERRL, EOMI, moist mucous membranes Cardiovascular: Bradycardic rate and regular rhythm without murmurs, no peripheral edema, 2+ pulses all distal extremities Respiratory: No increased work of breathing, lungs are clear to auscultation bilaterally, no rales, rhonchi or wheezing, pain reproduced with the deep breathing Abdominal: Abdomen is soft, nontender with normoactive bowel sounds, no guarding or rebound, no masses MSK: Moves all extremities, no deformities, normal strength Neuro: Awake and alert, oriented ?4. No facial droop, sensation and motor function intact and symmetric Test Results: Abnormal Lab Results 03/04/18 03/04/18 15:11 15:11 WBC 10.1 RBC 3.88 L Hgb 10.7 L Hct 33.8 L MCV 87.1 MCH 27.6 MCHC 31.7 L RDW 15.7 H RDW Differential 49.2 H Plt Count 241 MPV 10.4 Immature Gran % (Auto) 0.300 Neut % (Auto) 75.8 H Lymph % (Auto) 14.5 L Casey % (Auto) 7.5 Eos % (Auto) 1.4 Baso % (Auto) 0.5 Absolute Neuts (auto) 7.7 Absolute Lymphs (auto) 1.47 Total Counted Not Reportable Sodium 137 Potassium 4.1 Chloride 100 Carbon Dioxide 28.0 Anion Gap 9 BUN 14 Creatinine 0.88 Estim Creat Clear Calc 79.04 Est GFR (MDRD) Af Amer 87 Est GFR (MDRD) Non-Af 72 BUN/Creatinine Ratio 15.9 Glucose 122 H Calcium 8.7 Troponin I < 0.015 Medications Given Discontinued Medications Hydrocodone Bitart/Acetaminophen ([place] 5mg-325mg) 1 tablet PO X1 ONE Stop: 03/04/18 17:49 Last Admin: 03/04/18 18:01 Dose: Aspirin (Aspirin, Baby) 243 mg PO X1 STA Stop: 03/04/18 15:50 Last Admin: 03/04/18 16:11 Dose: 243 mg Sodium Chloride () 1,000 mls @ 1,000 mls/hr IV .Q1H ONE Stop: 03/04/18 16:48 Last Admin: 03/04/18 16:11 Dose: 1,000 mls/hr Nitroglycerin (Nitrostat) 0.4 mg SUBLINGUAL Q5M JAZMÍN Stop: 03/04/18 16:11 Last Admin: 03/04/18 17:13 Dose: Admin: 03/04/18 17:13 Dose: Admin: 03/04/18 16:12 Dose: 0.4 mg Clinical Impression(s) from Imaging Studies Chest CTA 03/04/18 15:54 IMPRESSION: 1. Normal CTA chest examination, without a demonstrated pulmonary embolism or arterial dissection. 2. Cardiac pacemaker. 3. Degenerative changes. The thoracic spine. Electronically Signed: Liam Martinez DO at 16:45 EDT Tel [phone], Service support , Emergency Department Course and Treatment: Patient presents for chest pain with concern for possible PE and elevated d-dimer. EKG showed a paced rhythm without any ischemic changes. Troponin negative. Patient has had constant chest pain for 24 hours, thus a negative troponin makes acute coronary syndrome highly unlikely, especially with no ischemic EKG changes. Labs showed no leukocytosis. No electrolyte derangements. She was given aspirin and nitroglycerin, with worsening of the pain after 1 nitro. Thus no further nitro given. CTA showed no pulmonary emboli but did show concerning for thickening of the pericardial sac. Compared to an older CT, this is not a new finding, and there was no dependent thickening that would be concerning for a pericardial effusion instead. Patient was discussed with Dr. Hamilton regarding the chest pain and given that she has the prematurely depleted battery in her pacemaker/ICD. He agreed that it was very unlikely that that was related at all to her chest pain, especially given that it was functioning normally on EKG. Life-threatening causes of patient's pain were ruled out. Early pericarditis is on the differential, however patient had no fever, ST changes consistent with pericarditis, and given that she is unable to take NSAIDs and is diabetic, the risks of starting her on prednisone for treatment of possible pericarditis outweigh the potential benefits. Patient will take Tylenol as needed for pain. On reevaluation she was very well-appearing, and we discussed that there were multiple possibilities, including chest wall irritation, pleurisy, pericarditis, among other noncardiac causes of chest pain. She is to keep her appointment next week for her ICD replacement. She will return if any worsening of her condition. Treatment Plan: [] Disposition: [] Impression: Pleurisy, history of premature battery failure of pacemaker/ICD This note was generated with [employer] dictation software. It may contain incorrect words, spelling, and punctuation that were not noted in review of the chart prior to signing ED Disposition - Plan for ED Patient: Disposition: Home or Assisted Living Chief Complaint: Chest Pain Instructions: ED Chest Pain Pleurisy Referrals: Tobias Isaacs MD [STAFF PHYSICIAN] - 3-5 Days if not improving Mello Hull MD [Primary Care Provider] - 1-2 Days if not improving Additional Instructions: Your chest scan was negative for any blood clots. Your workup did not show any concerns that your chest pain is from your heart. Because you cannot take nonsteroidal anti-inflammatory medication such as ibuprofen or naproxen, please use Tylenol for your pain. Take it scheduled for the next 1-2 days every 6 hours or until the pain has resolved. Keep your scheduled appointment next week for your pacemaker/defibrillator replacement. If you continue to have chest pain, please follow-up with Dr. Hamilton and Dr. Hull. If you have any worsening of your condition or any new concerning symptoms, return immediately to the emergency department for another evaluation.
[2018-03-04 15:58] LABS: Absolute Lymphocyte Count 1.47 X10^3/ul (0.83-4.51); Absolute Neutrophil Count 7.7 X10^3/uL (2.0-7.7); Basophil# 0.05 X10^3/uL; Basophil% 0.5 % (0-1); Eosinophil# 0.14 X10^3/uL; Eosinophils% 1.4 % (0-5); Hematocrit 33.8 % (37-47); Hemoglobin 10.7 g/dl (12.0-15.0); Lymphocyte # 1.47 X10^3/ul (4.0); Lymphocyte % 14.5 % (19-41); Mean Corp Hgb Conc 31.7 g/gl (32-36); Mean Corpuscular Hgb 27.6 pg (27.0-32.0); Mean Corpuscular Volume 87.1 fL (81-99); Mean Platelet Vol. 10.4 fl (6.2-12.0); Monocyte# 0.76 X10^3/uL; Monocyte% 7.5 % (0-10); Neutrophil # 7.67 X10^3/uL (2.7-7.7); Neutrophil % 75.8 % (47-70); Platelet Count 241 K/mm3 (150-450); RBC Distribution Width CV 15.7 % (11.6-14.6); RBC Distribution Width SD 49.2 fl (35.1-43.9); Red Blood Count 3.88 M/mm3 (4.2-5.4); White Blood Count 10.1 K/mm3 (4.4-11.0)
[2018-03-04 15:59] LABS: POSITIVE COUNT NO; POSITIVE DIFFERENTIAL NO; POSITIVE MORPHOLOGY NO
[2018-03-04] MEDS: 0.9% Normal Saline 1,000 ML 1000 ML IV (16:11)
[2018-03-04] MEDS: Aspirin 81 MG TAB.CHEW 243 MG PO (16:11)
[2018-03-04 16:12] VITALS: BP 116/70; PULSE 81
[2018-03-04 16:12] LABS: Anion Gap 9 (5-15); BUN 14 mg/dL (7-18); BUN/Creat Ratio 15.9 RATIO (10-20); Calcium,Total 8.7 mg/dL (8.5-10.1); Chloride 100 mmol/L (98-107); Creatinine, Serum 0.88 mg/dL (0.55-1.02); EST Glomerular Filtration Rate 72 mL/min (>60); Est Glom Filt Rate - Afr Amer 87 mL/min (>60); Estimated Creatinine Clearance 79.04 ml/min; Glucose 122 mg/dL (74-106); Potassium 4.1 mmol/L (3.5-5.1); Sodium Level 137 mmol/L (136-145)
--- NOTE | 2018-03-04 16:42 | NURSING ---
DR Concepcion ADAME
[2018-03-04 17:14] VITALS: BP 108/91; PULSE 72; RESP 18
--- NOTE | 2018-03-04 17:48 | ED.DEP ---
ED Disposition - Plan for ED Patient: Disposition: Home or Assisted Living Chief Complaint: Chest Pain Instructions: ED Chest Pain Pleurisy Referrals: Mello Hull MD [Primary Care Provider] - 1-2 Days if not improving Tobias Isaacs MD [STAFF PHYSICIAN] - 3-5 Days if not improving Additional Instructions: Your chest scan was negative for any blood clots. Your workup did not show any concerns that your chest pain is from your heart. Because you cannot take nonsteroidal anti-inflammatory medication such as ibuprofen or naproxen, please use Tylenol for your pain. Take it scheduled for the next 1-2 days every 6 hours or until the pain has resolved. Keep your scheduled appointment next week for your pacemaker/defibrillator replacement. If you continue to have chest pain, please follow-up with Dr. Hamilton and Dr. Hull. If you have any worsening of your condition or any new concerning symptoms, return immediately to the emergency department for another evaluation.
[2018-03-04 17:59] VITALS: BP 131/68; PULSE 72; RESP 18
== END 2018-03-04 18:02 | disposition home or self-care (01) ==
PROVIDERS: Emergency Provider Emergency Medicine; Family Provider Family Medicine; PCP Family Medicine
DX: R09.1 Pleurisy (principal); Z95.810 Presence of automatic (implantable) cardiac defibrillator; E11.9 Type 2 diabetes mellitus without complications; I10 Essential (primary) hypertension; Z79.82 Long term (current) use of aspirin; Z79.4 Long term (current) use of insulin; Z79.899 Other long term (current) drug therapy; R07.1 Chest pain on breathing; R07.81 Pleurodynia
CPT/HCPCS: 71275; 80048; 84484; 85025; 85379; 93005; 96360; 96361; 99285; J7030; Q9967; A4216

== ENCOUNTER → 2018-03-24 11:56 | Outpatient (CLI) | payer MEDICAID, SELFPAY ==
[2018-03-24 13:12] LABS: Microalbumin,Random Urine 5.5 mg/L (NO RANGE EST.); Microalbumin:Creatinine Ratio 3.7 mg/g CRE (<30 mg/g CRE)
[2018-03-24 13:16] LABS: Hemoglobin A1c 9.3 % (4.2-6.3)
[2018-03-24 13:33] LABS: AST(SGOT) 15 U/L (15-37); Alanine Aminotransfer ALT/SGPT 24 U/L (13-56); Thyroid Stim Hormone (TSH) 0.27 uIU/mL (0.358-3.74)
== END ==
PROVIDERS: Family Provider Family Medicine; PCP Family Medicine; Visit Provider Nurse Practitioner
DX: E11.65 Type 2 diabetes mellitus with hyperglycemia (principal)
CPT/HCPCS: 36415; 82043; 82570; 83036; 84443; 84450; 84460

== ENCOUNTER → 2018-04-30 11:54 | Outpatient (CLI) | payer MEDICAID, SELFPAY ==
[2018-04-30 13:27] LABS: Free T3 2.7 pg/mL (2.18-3.98); T4 Free Direct 1.03 ng/dL (0.76-1.46); Thyroid Stim Hormone (TSH) 0.54 uIU/mL (0.358-3.74)
== END ==
PROVIDERS: Family Provider Family Medicine; PCP Family Medicine; Referring Provider Nurse Practitioner; Visit Provider Nurse Practitioner
DX: E03.9 Hypothyroidism, unspecified (principal)
CPT/HCPCS: 36415; 84439; 84443; 84481

== ENCOUNTER → 2018-06-20 13:51 | Outpatient (CLI) | payer MEDICAID, SELFPAY ==
[2018-06-03 12:58] VITALS: BMI 32.9
== END ==
PROVIDERS: Family Provider Family Medicine; PCP Family Medicine; Referring Provider Orthopaedic Surgery; Visit Provider Orthopaedic Surgery
DX: Z53.9 Procedure and treatment not carried out, unspecified reason (principal)

== ENCOUNTER 2018-06-22 16:37 | Emergency (ER) | payer MEDICAID, SELFPAY ==
[2018-06-03 12:58] VITALS: BMI 32.9
[2018-06-22 16:38] VITALS: BP 153/61; PULSE 87; RESP 16; TEMP 36.5; O2SAT 96; BMI 34.1
--- NOTE | 2018-06-22 17:03 | EKG12_ITS ---
Test Reason : DISRHYTHMIA Blood Pressure : / mmHG Vent. Rate : 068 BPM Atrial Rate : 068 BPM P-R Int : 000 ms QRS Dur : 152 ms QT Int : 472 ms P-R-T Axes : 056 -14 098 degrees QTc Int : 501 ms Ventricular-paced rhythm Biventricular pacemaker detected Abnormal ECG Confirmed by MADHURI PEREZ, DANN ([id number]), editor managing director RADHA CAZARES ([id number]) on 06/24/2018 8:58:00 AM Referred By: Mc Cazares Confirmed By:DANN DHALIWAL MD
[2018-06-22 17:32] LABS: Absolute Lymphocyte Count 1.61 X10^3/ul (0.83-4.51); Absolute Neutrophil Count 4.8 X10^3/uL (2.0-7.7); Basophil# 0.02 X10^3/uL; Basophil% 0.3 % (0-1); Eosinophil# 0.14 X10^3/uL; Hematocrit 34.8 % (37-47); Hemoglobin 10.7 g/dl (12.0-15.0); Lymphocyte # 1.61 X10^3/ul (4.0); Lymphocyte % 22.6 % (19-41); Mean Corp Hgb Conc 30.7 g/gl (32-36); Mean Corpuscular Hgb 25.4 pg (27.0-32.0); Mean Corpuscular Volume 82.7 fL (81-99); Mean Platelet Vol. 9.6 fl (6.2-12.0); Monocyte# 0.59 X10^3/uL; Monocyte% 8.3 % (0-10); Neutrophil # 4.76 X10^3/uL (2.7-7.7); Neutrophil % 66.7 % (47-70); POSITIVE COUNT NO; POSITIVE DIFFERENTIAL NO; POSITIVE MORPHOLOGY NO; Platelet Count 192 K/mm3 (150-450); RBC Distribution Width CV 15.8 % (11.6-14.6); RBC Distribution Width SD 47.8 fl (35.1-43.9); Red Blood Count 4.21 M/mm3 (4.2-5.4); White Blood Count 7.1 K/mm3 (4.4-11.0)
--- NOTE | 2018-06-22 17:35 | RAD_ITS ---
STUDY: X-RAY CHEST REASON FOR EXAM: Female, 52 years old. Shortness of breath, dyspnea, cough TECHNIQUE: PA and lateral views of the chest. COMPARISON: 11/07/2017 FINDINGS: Three lead cardiac conduction device is seen via the left subclavian vein with lead tips projecting over the right atrium and right ventricle, respectively, with left atrial lead projecting over the left atrium/posterior cardiac border. The lungs are clear and expanded. There is no demonstrated pleural abnormality. Normal size heart. Normal mediastinum and remy. Normal visualized pulmonary arteries. Normal visualized aortic arch and descending thoracic aorta. Normal visualized thoracic spine. Normal visualized ribs, clavicles, and shoulders. There is no demonstrated abnormality of the visualized soft tissue structures of the upper abdomen. RAD/Chest PA and Lateral IMPRESSION: Stable, nonacute x-ray examination of the chest. Electronically Signed: Adryan Shipman MD at 18:40 EST , Service support ,
[2018-06-22 17:44] LABS: Anion Gap 9 (5-15); BUN 12 mg/dL (7-18); BUN/Creat Ratio 11.7 RATIO (10-20); Chloride 102 mmol/L (98-107); Creatinine, Serum 1.03 mg/dL (0.55-1.02); EST Glomerular Filtration Rate 60 mL/min (>60); Est Glom Filt Rate - Afr Amer 72 mL/min (>60); Estimated Creatinine Clearance 67.53 ml/min; Glucose 209 mg/dL (74-106); Potassium 3.9 mmol/L (3.5-5.1); Sodium Level 140 mmol/L (136-145)
[2018-06-22 17:58] LABS: BNP,B-Type NATRIURETIC PEPTIDE 36.8 pg/mL (0-100)
[2018-06-22 18:38] VITALS: RESP 14
--- NOTE | 2018-06-22 19:12 | ED.DCSUM_ITS ---
- ER Visit Summary Date of Service: 06/22/18 Chief Complaint: Lower extremity edema History of Present Illness: The patient is a 52 F who presents with lower extremity edema that has been getting worse since yesterday. Patient states her swelling is localized to her feet bilaterally. Patient admits to some tingling over the left foot. Patient admits to some slight dyspnea and brief episodes of chest pain. Patient states nothing seems to make it better or worse. Patient denies any nausea or vomiting. Patient denies any dysuria or hematuria. Patient does admit to some chronic back pain that is mild. Patient denies any calf pain. Physical Examination: Vital signs are stable. Patient is afebrile. Patient is in no acute distress. Oral mucosa is pink and moist. Neck is supple. Trachea is midline. No JVD noted. Heart was regular rate and rhythm. Lungs are clear and equal bilaterally. There is good respiratory effort noted. Abdomen is soft. Bowel sounds are normal. Extremities are intact x4. There is trace edema in the feet bilaterally. There is no calf tenderness or edema noted. Cranial nerves II through XII are intact. There is slight decreased sensation to light touch in the left foot. Strength is 5/5 bilaterally upper and lower extremities. Deep tendon reflexes are 2+/4 bilaterally. Remaining physical exam is within normal limits. Test Results: PA and lateral chest x-ray does not show any evidence of congestive heart failure. EKG showed a paced rhythm with a rate of 68. There are no acute ST or T wave changes. CBC shows a mild anemia with a hemoglobin of 10.7 and hematocrit 34.8. These are stable compared to previous results. Basic metabolic profile showed a creatinine of 1.03 and a glucose of 209. BNP was normal at 36.8. Emergency Department Course and Treatment: Patient was instructed to elevate her lower extremities. Patient was instructed to follow-up with her primary care physician in 5-7 days. Patient was instructed to return if worse in any way. Patient understood and was agreeable with the plan. All questions were answered. Disposition: Discharge home Impression: Peripheral edema This note was generated with [employer] software. It may contain incorrect words, spelling, and punctuation that were not noted in review of the chart prior to signing ED Disposition - Plan for ED Patient: Disposition: Home or Assisted Living Chief Complaint: Edema Diagnosis: Peripheral edema Instructions: ED Leg Swelling Bilateral Referrals: Mello Hull MD [Primary Care Provider] -
[2018-06-22 19:19] VITALS: BP 132/78; PULSE 78; RESP 16; O2SAT 98
== END 2018-06-22 19:21 | disposition home or self-care (01) ==
PROVIDERS: Emergency Provider Emergency Medicine; Family Provider Family Medicine; PCP Family Medicine
DX: R60.0 Localized edema (principal); M79.89 Other specified soft tissue disorders; M54.9 Dorsalgia, unspecified; R06.00 Dyspnea, unspecified; R07.9 Chest pain, unspecified; I42.9 Cardiomyopathy, unspecified; D64.9 Anemia, unspecified; E11.9 Type 2 diabetes mellitus without complications; I10 Essential (primary) hypertension; G25.81 Restless legs syndrome; R51 Headache; F41.9 Anxiety disorder, unspecified; E66.9 Obesity, unspecified; G89.29 Other chronic pain; Z79.82 Long term (current) use of aspirin; Z79.4 Long term (current) use of insulin; Z79.899 Other long term (current) drug therapy
CPT/HCPCS: 71046; 80048; 83880; 85025; 93005; 99283; A4216

== ENCOUNTER 2018-07-29 16:59 | Emergency (ER) | payer MEDICAID, SELFPAY ==
[2018-07-29 17:00] VITALS: BP 134/64; PULSE 69; RESP 14; TEMP 36.3; O2SAT 98; BMI 35.1
--- NOTE | 2018-07-29 17:23 | ED.DCSUM_ITS ---
- ER Visit Summary Date of Service: 07/29/18 Chief Complaint: Chest pain and swelling History of Present Illness: The patient is a 53 F who presents to the emergency room after being referred by her primary care physician. Patient states that for the past several days she has felt that her feet and her hands are swollen. She also notes a chest tightness and a cough that is worse when she lays down. She notes that the anterior aspect of her chest is sore when she takes a deep breath then makes it worse. She has a history of nonischemic cardiomyopathy however her ejection fraction has significantly improved for the past several years in October 2017 it was 50-55% with mild left ventricular hypokinesis. 2014 she had a heart cath that was negative. Her ejection fraction reportedly was as low as 15%. She sees [facility]. She has a pacemaker. That was changed last fall. Physical Examination: Afebrile vital signs are stable Gen: Well-nourished well-developed Head: Normocephalic atraumatic Eyes: Perrl EOMI ENT: TMs clear no rhinorrhea moist mucous membranes Neck: Supple no lymphadenopathy no JVD nontender CVS: Regular rate rhythm no murmurs normal S1-S2 Respiratory: No distress clear to auscultation bilaterally anterior mid sternum is tender to palpation and reproduces the pain the patient experiences with deep breathing Abdomen: Soft nontender nondistended normal bowel sounds no masses Back: Nontender Extremity: Nontender no edema Skin: Normal color no rash Neuro: alert orientated ?3 CN II-XII intact normal strength sensation reflexes gait cerebellar Psych: Normal affect normal mood Test Results: EKG from the office was reviewed that shows a ventricular paced rhythm. Hemoglobin 10.3. Glucose 205. Troponin negative. Beta natruretic peptide is 20.1. Chest x-ray showed no pleural effusion or evidence of CHF. Emergency Department Course and Treatment: I believe the chest pain is chest wall related. It is reproducible. I do not appreciate edema on the patient but she tells me that her feet and hands are more swollen than normal. I do not see evidence of acute congestive heart failure or need for hospitalization. Patient may take her Lasix twice a day for the next 4 days and follow-up with her doctor in the office. Impression: 1. Chest wall pain 2. Lymphedema This note was generated with [employer] software. It may contain incorrect words, spelling, and punctuation that were not noted in review of the chart prior to signing ED Disposition - Plan for ED Patient: Disposition: Home or Assisted Living Chief Complaint: Edema Instructions: ED Chest Pain Costochondritis, ED Lymphedema Referrals: Mello Hull MD [Primary Care Provider] - 1 Week Additional Instructions: I would recommend taking your Lasix twice a day for the next 4 days. Monitor your salt intake.
[2018-07-29 17:50] LABS: Absolute Lymphocyte Count 1.79 X10^3/ul (0.83-4.51); Absolute Neutrophil Count 4.9 X10^3/uL (2.0-7.7); Basophil# 0.03 X10^3/uL; Basophil% 0.4 % (0-1); Eosinophil# 0.15 X10^3/uL; Hematocrit 33.9 % (37-47); Hemoglobin 10.3 g/dl (12.0-15.0); Lymphocyte # 1.79 X10^3/ul (4.0); Lymphocyte % 24.4 % (19-41); Mean Corp Hgb Conc 30.4 g/gl (32-36); Mean Corpuscular Hgb 25.4 pg (27.0-32.0); Mean Corpuscular Volume 83.7 fL (81-99); Mean Platelet Vol. 9.8 fl (6.2-12.0); Monocyte# 0.48 X10^3/uL; Monocyte% 6.5 % (0-10); Neutrophil # 4.87 X10^3/uL (2.7-7.7); Neutrophil % 66.6 % (47-70); Platelet Count 196 K/mm3 (150-450); RBC Distribution Width CV 16.4 % (11.6-14.6); RBC Distribution Width SD 49.7 fl (35.1-43.9); Red Blood Count 4.05 M/mm3 (4.2-5.4); White Blood Count 7.3 K/mm3 (4.4-11.0)
--- NOTE | 2018-07-29 17:50 | RAD_ITS ---
STUDY: X-RAY CHEST REASON FOR EXAM: Female, 53 years old. Lower extremity edema, chest pain TECHNIQUE: PA and lateral views of the chest. COMPARISON: Prior study of 06/22/2018 FINDINGS: A left-sided pacemaker is present. monitoring manager leads are seen. The lungs are clear and expanded. There is no demonstrated pleural abnormality. Normal size heart. Normal mediastinum and remy. Normal visualized pulmonary arteries. Normal visualized aortic arch and descending thoracic aorta. Normal visualized thoracic spine. Normal visualized ribs, clavicles, and shoulders. There is no demonstrated abnormality of the visualized soft tissue structures of the upper abdomen. RAD/Chest PA and Lateral IMPRESSION: No acute cardiopulmonary disease process is seen. Chest findings are stable in the interval. Electronically Signed: Rajan Yen MD at 18:59 EST , Service support ,
[2018-07-29 17:58] LABS: POSITIVE COUNT NO; POSITIVE DIFFERENTIAL NO; POSITIVE MORPHOLOGY NO
[2018-07-29 18:19] LABS: Anion Gap 8 (5-15); BUN 16 mg/dL (7-18); BUN/Creat Ratio 16.7 RATIO (10-20); Calcium,Total 8.7 mg/dL (8.5-10.1); Chloride 106 mmol/L (98-107); Creatinine, Serum 0.96 mg/dL (0.55-1.02); EST Glomerular Filtration Rate 65 mL/min (>60); Est Glom Filt Rate - Afr Amer 79 mL/min (>60); Estimated Creatinine Clearance 71.64 ml/min; Glucose 205 mg/dL (74-106); Potassium 3.7 mmol/L (3.5-5.1); Sodium Level 139 mmol/L (136-145)
[2018-07-29 18:39] LABS: BNP,B-Type NATRIURETIC PEPTIDE 20.1 pg/mL (0-100)
[2018-07-29 19:27] VITALS: BP 147/72; PULSE 66; RESP 20; O2SAT 97
== END 2018-07-29 19:32 | disposition home or self-care (01) ==
PROVIDERS: Emergency Provider Emergency Medicine; Family Provider Family Medicine; PCP Family Medicine
DX: R07.89 Other chest pain (principal); I89.0 Lymphedema, not elsewhere classified; R05 Cough; R06.00 Dyspnea, unspecified; E11.9 Type 2 diabetes mellitus without complications; I10 Essential (primary) hypertension; Z79.82 Long term (current) use of aspirin; Z79.4 Long term (current) use of insulin; Z79.899 Other long term (current) drug therapy; Z95.0 Presence of cardiac pacemaker
CPT/HCPCS: 71046; 80048; 83880; 84484; 85025; 99284; A4216

== ENCOUNTER 2018-08-04 16:37 | Emergency (ER) | payer MEDICAID, SELFPAY ==
[2018-07-30 12:53] VITALS: BMI 35.1
[2018-08-04 16:38] VITALS: BP 115/70; PULSE 86; RESP 16; TEMP 36.6; O2SAT 95; BMI 34.1
--- NOTE | 2018-08-04 17:13 | ED.VISSUMM ---
- ER Visit Summary Date of Service: 08/04/18 Chief Complaint: Fever, cough, body aches History of Present Illness: The patient is a 53 F who reports body aches, congestion, cough, sore throat that started on the . She reports her temperature being up to 101-102. Last dose of medication for anything with fever was yesterday. She did get a flu shot this year. Past history significant for coronary disease, diabetes, hypertension, high cholesterol, RLS, dilated cardiomyopathy. She does have an ICD. Physical Examination: Vital signs are unremarkable. Patient is afebrile 97.9. Patient is lying in bed no acute distress. Head neck examination reveals moist mucous membranes. Posterior pharynx is normal. Heart is regular rate and rhythm. Lung sounds are clear. Abdomen is soft nontender. Neuro exam is unremarkable. Test Results: CBC was normal white count hemoglobin 11.6. Chemistry studies remarkable only for creatinine 1.13. Influenza swab is negative. Two-view chest x-ray shows stable pacemaker with no infiltrate. Emergency Department Course and Treatment: Patient was given Toradol and IV fluids. On repeat evaluation she does feel somewhat improved. Patient was not sure that her symptoms are consistent with viral syndrome. She will use Tylenol, ibuprofen, and push fluids at home. Treatment Plan: [] Disposition: Discharge Impression: Viral syndrome This note was generated with [employer] dictation software. It may contain incorrect words, spelling, and punctuation that were not noted in review of the chart prior to signing ED Disposition - Plan for ED Patient: Chief Complaint: General Illness Referrals: Mello Hull MD [Primary Care Provider] -
[2018-08-04] MEDS: Ketorolac 30 MG/ML Syringe IV (17:16)
[2018-08-04] MEDS: 0.9% Normal Saline 1,000 ML 1000 ML IV (17:16)
--- NOTE | 2018-08-04 17:24 | RAD_ITS ---
STUDY: X-RAY CHEST REASON FOR EXAM: Female, 53 years old. Cough. TECHNIQUE: Frontal and lateral views of the chest. COMPARISON: July 29, 2018 FINDINGS: Pacemaker device on the left is stable. The lungs are clear and expanded. There is no demonstrated pleural abnormality. Normal size heart. Normal mediastinum and remy. Normal visualized pulmonary arteries. Normal visualized aortic arch and descending thoracic aorta. Normal visualized thoracic spine. Normal visualized ribs, clavicles, and shoulders. There is no demonstrated abnormality of the visualized soft tissue structures of the upper abdomen. RAD/Chest PA and Lateral IMPRESSION: Stable pacemaker device. No focal infiltrate. Electronically Signed: Jose R Bernard MD at 17:57 EST , Service support ,
[2018-08-04 17:28] LABS: Absolute Lymphocyte Count 1.28 X10^3/ul (0.83-4.51); Absolute Neutrophil Count 4.6 X10^3/uL (2.0-7.7); Basophil# 0.03 X10^3/uL; Basophil% 0.4 % (0-1); Eosinophil# 0.02 X10^3/uL; Eosinophils% 0.3 % (0-5); Hematocrit 36.8 % (37-47); Hemoglobin 11.6 g/dl (12.0-15.0); Lymphocyte # 1.28 X10^3/ul (4.0); Lymphocyte % 18.1 % (19-41); Mean Corp Hgb Conc 31.5 g/gl (32-36); Mean Corpuscular Volume 82.5 fL (81-99); Mean Platelet Vol. 10.1 fl (6.2-12.0); Monocyte# 1.18 X10^3/uL; Monocyte% 16.6 % (0-10); Neutrophil # 4.55 X10^3/uL (2.7-7.7); Neutrophil % 64.2 % (47-70); Platelet Count 208 K/mm3 (150-450); RBC Distribution Width CV 17.1 % (11.6-14.6); RBC Distribution Width SD 50.1 fl (35.1-43.9); Red Blood Count 4.46 M/mm3 (4.2-5.4); White Blood Count 7.1 K/mm3 (4.4-11.0)
[2018-08-04 17:34] LABS: POSITIVE COUNT NO; POSITIVE DIFFERENTIAL NO; POSITIVE MORPHOLOGY NO
[2018-08-04 17:57] LABS: Anion Gap 8 (5-15); BUN 16 mg/dL (7-18); BUN/Creat Ratio 14.2 RATIO (10-20); Calcium,Total 8.8 mg/dL (8.5-10.1); Chloride 101 mmol/L (98-107); Creatinine, Serum 1.13 mg/dL (0.55-1.02); EST Glomerular Filtration Rate 54 mL/min (>60); Est Glom Filt Rate - Afr Amer 65 mL/min (>60); Estimated Creatinine Clearance 60.86 ml/min; Glucose 93 mg/dL (74-106); Potassium 3.9 mmol/L (3.5-5.1); Sodium Level 136 mmol/L (136-145)
[2018-08-04 18:16] VITALS: BP 111/57; PULSE 83; RESP 16; TEMP 36.9; O2SAT 95
--- NOTE | 2018-08-04 18:34 | ED.DEP ---
ED Disposition - Plan for ED Patient: Disposition: Home or Assisted Living Chief Complaint: General Illness Instructions: ED Viral Syndrome Referrals: Mello Hull MD [Primary Care Provider] - 1 Week if not improving
--- OUTSIDE RECORDS SUMMARY | 2018-10-07 04:42 | XMS RPT_ITS ---
:1965 Author Organization OHIP Support Name Relationship Address Phone DOMANIC, KRISTA Unavailable [address] + [place] [address] UE Unavailable Unavailable Unavailable DOMANIC, KRISTA Unavailable [address] + [place] [address] UE Unavailable Unavailable Unavailable DOMANIC, KRISTA Unavailable [address] + [place] [address] UE Unavailable Unavailable Unavailable DOMANIC, KRISTA Unavailable [address] + [place] [address] UE Unavailable Unavailable Unavailable DOMANIC, KRISTA Unavailable [address] + [place] [address] UE Unavailable Unavailable Unavailable DOMANIC, KRISTA Unavailable [address] + [place] [address] UE Unavailable Unavailable Unavailable DOMANIC, KRISTA Unavailable [address] + [place] [address] UE Unavailable Unavailable Unavailable DOMANIC, KRISTA Unavailable [address] + [place] [address] DOMANIC, KRISTA Unavailable [address] + [place] [address] UE Unavailable Unavailable Unavailable DOMANIC, KRISTA Unavailable [address] + [place] [address] UE Unavailable Unavailable Unavailable DOMANIC, KRISTA Unavailable [address] + [place] [address] UE Unavailable Unavailable Unavailable DOMANIC, KRISTA Unavailable [address] + [place] [address] UE Unavailable Unavailable Unavailable DOMANIC, KRISTA Unavailable [address] + [place] [address] UE Unavailable Unavailable Unavailable DOMANIC, KRISTA Unavailable [address] + [place] [address] S Unavailable Unavailable Unavailable UE Unavailable Unavailable Unavailable DOMANIC, KRISTA Unavailable [address] + [place] [address] S Unavailable Unavailable Unavailable UE Unavailable Unavailable Unavailable DOMANIC, KRISTA Unavailable [address] + [place] [address] S Unavailable Unavailable Unavailable CIERRA THOMAS Unavailable [address] + [place] [address] DOMANIC, KRISTA Unavailable [address] + [place] [address] S Unavailable Unavailable Unavailable CIERRA THOMAS Unavailable [address] + [place] [address] DOMANIC, KRISTA Unavailable [address] + [place] [address] S Unavailable Unavailable Unavailable CIERRA THOMAS Unavailable [address] + [place] [address] DOMANIC, KRISTA Unavailable [address] + [place] [address] S Unavailable Unavailable Unavailable CIERRA THOMAS Unavailable [address] + [place] [address] DOMANIC, KRISTA Unavailable [address] + [place] [address] S Unavailable Unavailable Unavailable CIERRA THOMAS Unavailable [address] + [place] [address] DOMANIC, KRISTA Unavailable [address] + [place] [address] S Unavailable Unavailable Unavailable CIERRA THOMAS Unavailable [address] + [place] [address] DOMANIC, KRISTA Unavailable [address] + [place] [address] S Unavailable Unavailable Unavailable CIERRA THOMAS Unavailable [address] + [place] [address] Care Team Providers Name Role Phone Yesenia Lowe Attending Unavailable [facility] Primary [facility] Unavailable Yesenia Lowe Referring Unavailable Lissette Payne TRANSPORTATION SECURITY OFFICER-C Attending Unavailable [place], Mello Referring Unavailable [facility] Unavailable Lissette Payne TRANSPORTATION SECURITY OFFICER-C Attending Unavailable [place], Mello Referring Unavailable [facility] Unavailable Miguel, Julian Admitting Unavailable Nicole Dobson Attending Unavailable Miguel, Julian Admitting Unavailable Julian Ham Attending Unavailable [facility] Unavailable Miguel, Julian Consulting Unavailable Yessiky, Julian Admitting Unavailable Nicole Dobson Attending Unavailable [facility] Unavailable Nicole Dobson Unavailable Javy Mccoy Attending Unavailable Lissette Payne TRANSPORTATION SECURITY OFFICER-C Attending Unavailable [place], Mello Referring Unavailable Althea Malone Attending Unavailable [facility] Unavailable Althea Malone Referring Unavailable [facility] Unavailable Anu Castañeda Attending Unavailable Tobias Martinez Referring Unavailable Lissette Payne TRANSPORTATION SECURITY OFFICER-C Attending Unavailable [place], Mello Referring Unavailable [facility] Primary Care Unavailable Lissette Payne TRANSPORTATION SECURITY OFFICER-C Attending Unavailable Lissette Payne TRANSPORTATION SECURITY OFFICER-C Referring Unavailable [facility] [place] Primary [facility] Unavailable Lissette Payne TRANSPORTATION SECURITY OFFICER-C Attending Unavailable Lissette Payne TRANSPORTATION SECURITY OFFICER-C Attending Unavailable Lissette Payne TRANSPORTATION SECURITY OFFICER-C Referring Unavailable [facility] Primary Care Unavailable [facility] [place] Unavailable Javy Saul Attending Unavailable Lissette Payne TRANSPORTATION SECURITY OFFICER-C Attending Unavailable [place], Mello Referring Unavailable [facility] Primary [facility] Unavailable Marysol Ryder Attending Unavailable Lissette Payne TRANSPORTATION SECURITY OFFICER-C Attending Unavailable [place], Mello Referring Unavailable Mc Betts Attending Unavailable Mc Betts Referring Unavailable [facility] Primary Care Unavailable Lissette Payne TRANSPORTATION SECURITY OFFICER-C Attending Unavailable [place], Mello Referring Unavailable [facility] Primary [facility] Unavailable Haider Valdes Attending Unavailable RADHA FROST Attending Unavailable [facility], MELLO J Referring Unavailable YESENIA LOWE Attending Unavailable JULEE ELMORE (STACY) Attending Unavailable TOÑA, MELLO J Attending Unavailable MELLO DING Referring Unavailable TOÑA, MELLO Gardner Attending Unavailable MELLO DING Referring Unavailable HILD, YESENIA Attending Unavailable HILD, YESENIA Referring Unavailable ALTHEA MALONE (CASHIER CHECKER) Attending Unavailable HAAGEN, ALTHEA (CASHIER CHECKER) Referring Unavailable HAAGENALTHEA (CASHIER CHECKER) Referring Unavailable HAAGEN, ALTHEA (CASHIER CHECKER) Referring Unavailable ARMOGIDA, JUSTIN A Attending Unavailable TOÑAMELLO Referring Unavailable ARMOGIDA, JUSTIN A Referring Unavailable ARMOGIDA, JUSTIN A Referring Unavailable ARMOGIDA, JUSTIN A Attending Unavailable TOÑAMELLO Garcia Referring Unavailable HILD, YESENIA Attending Unavailable HILD, YESENIA Referring Unavailable HILD, YESENIA Referring Unavailable ARMOGIDA, JUSTIN A Referring Unavailable ARMOGIDA, JUSTIN A Attending Unavailable MELLO DING Referring Unavailable Shanell MERLOS (SANDRO) Referring Unavailable TOÑA, MELLO Gardner Attending Unavailable MELLO DING Referring Unavailable MELLO DING Referring Unavailable TOBIAS MARTINEZ Attending Unavailable TOBIAS MARTINEZ E Referring Unavailable TOBIAS MARTINEZ E Referring Unavailable VITEBSKIY, LILO ALEKSANDROVICH Referring Unavailable VITTHANHSKIY, LILO FELICIANOH Attending Unavailable TOBIAS MARTINEZ Referring Unavailable VITEBSKIY, LILO ALEKSANDROVICH Referring Unavailable VITEBSKIY, LILO ALEKSANDROMATHIEUH Attending Unavailable VITEBSKIY, LILO ALEKSANDROVICH Referring Unavailable VITEBSKIY, LILO ALEKSANDROVICH Admitting Unavailable VITEBSKIY, LILO ALEKSANDROVICH Attending Unavailable VITEBSKIY, LILO ALEKSANDROVICH Referring Unavailable JUAN TOBIAS Attending Unavailable JUAN TOBIAS Referring Unavailable Mello Ding MD Primary Care Unavailable TOBIAS MARTINEZ Referring Unavailable Mello Ding MD Primary Care Unavailable LILO WHEELER Attending Unavailable TOBIAS MARTINEZ Referring Unavailable Mello Ding MD Primary Care Unavailable LILO WHEELER Referring Unavailable Mello Ding MD Primary Care Unavailable LILO WHEELER Referring Unavailable Mello Ding MD Primary Care Unavailable LUISALILO GRECO Referring Unavailable Mello Ding MD Primary Care Unavailable LILO WHEELER Attending Unavailable LILO WHEELER Referring Unavailable Mello Ding MD Primary Care Unavailable LILO WHEELER Admitting Unavailable LILO WHEELER Attending Unavailable Mello Ding MD Primary Care Unavailable [facility] Referring Unavailable Mello Ding MD Primary Care Unavailable LILO WHEELER Referring Unavailable Mlelo Ding MD Primary Care Unavailable VICKI, LETICIA PAC Admitting Unavailable VICKI, LETICIA PAC Attending Unavailable MEHRDAD MARTINEZ MD Consulting Unavailable VICKI, LETICIA PAC Primary Care Unavailable PROVIDER, UNKNOWN Consulting Unavailable PROVIDER, UNKNOWN Consulting Unavailable PROVIDER, UNKNOWN Consulting Unavailable PROBLEMS PROBLEMS DATE TYPE CONDITION / CODE ATTENDING STATUS SOURCE Unknown M77.51 - Other Hild, Yesenia Active [facility] 9 enthesopathy of Community right foot / Hospital M77.51(ICD-10) Repository Unknown M77.52 - Other Hild, Yesenia Active [facility] 9 enthesopathy of left Community foot / Hospital M77.52(ICD-10) Repository Unknown E11.69 - Type 2 Lissette Payne Active [facility] 9 diabetes mellitus TRANSPORTATION SECURITY OFFICER-C Community with other specified Hospital complication / Repository E11.69(ICD-10) Active Chest pain, NA Active [facility] unspecified / Clinic Main R07.9(ICD-10) [facility] Repository Active Type 2 diabetes NA Active [facility] 8 mellitus with Clinic Main diabetic neuropathy, [place] unspecified / Repository E11.40(ICD-10) Active Type 2 diabetes NA Active [facility] 8 mellitus with Clinic Main hyperglycemia / [place] E11.65(ICD-10) Repository Active Fatty (change of) NA Active [facility] 9 liver, not elsewhere Clinic Main classified / [place] K76.0(ICD-10) Repository Active Toxic effect of NA Active [facility] 9 latex, accidental Clinic Main (unintentional), [place] [facility] initial encounter / Repository T65.811A(ICD-10) 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 Clinic Main 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 / [place] Z79.899(ICD-10) Repository Active Toxic effect of NA Active [facility] 8 latex, accidental Clinic Main (unintentional), [facility] subsequent encounter Repository / T65.811D(ICD-10) Active Other enthesopathy NA Active [facility] 8 of right foot / Clinic Main M77.51(ICD-10) [facility] Repository Active Other enthesopathy NA Active [facility] 8 of left foot / Clinic Main M77.52(ICD-10) [facility] Repository Active Soft tissue NA Active [facility] 8 disorder, Clinic Main unspecified / [place] M79.9(ICD-10) Repository Active Dyspnea, unspecified NA Active [facility] / R06.00(ICD-10) Clinic Main [facility] [place] Repository Active Other abnormalities NA Active [facility] 8 of breathing / Clinic Main R06.89(ICD-10) [facility] Repository Active Cough / R05(ICD-10) NA Active [facility] 8 Clinic Main [place] Repository Unknown E07.9 - Disorder of Chriss Lissette Kendra Active [facility] 8 thyroid, unspecified TRANSPORTATION SECURITY OFFICER-C Community / E07.9(ICD-10) Hospital Repository Unknown E03.9 - Lissette Payne Active [place] 8 Hypothyroidism, TRANSPORTATION SECURITY OFFICER-C Community unspecified / Hospital E03.9(ICD-10) Repository Unknown E11.65 - Type 2 Lissette Payne Kendra Active [facility] 8 diabetes mellitus TRANSPORTATION SECURITY OFFICER-C Community with hyperglycemia / Hospital E11.65(ICD-10) Repository Unknown R07.81 - Pleurodynia Beaujamir Althea Active [facility] / R07.81(ICD-10) Community Hospital Repository Unknown R07.1 - Chest pain Beaujamir Althea Active [place] 8 on breathing / Community R07.1(ICD-10) Hospital Repository Active Shortness of breath NA Active [facility] / R06.02(ICD-10) Clinic Main [place] Repository Active Chest pain on NA Active [facility] 8 breathing / Clinic Main R07.1(ICD-10) [facility] Repository Active Pleurodynia / NA Active [facility] 8 R07.81(ICD-10) Clinic Main [place] Repository Active Presence of LILO WHEELER Active [place] 3 automatic ALEKSANDROVICH Clinic Other (implantable) [place] cardiac Repository defibrillator / Z95.810(ICD-10) Active Essential (primary) VITTHANHSKVITO LILO Active [facility] 2 hypertension / ALEKSANDROVICH Clinic Other I10(ICD-10) [place] [facility] Repository Admitting Unknown / LILO WHEELER Active [facility] 8 diagnosis UNK(Unknown) [facility] Repository Active Abnormal levels of NA Active [facility] 8 other serum enzymes Clinic Main / R74.8(ICD-10) [facility] Repository Unknown E11.9 - Type 2 Lissette Payne Active [place] 8 diabetes mellitus TRANSPORTATION SECURITY OFFICER-C Community without Hospital complications / Repository E11.9(ICD-10) Unknown E66.9 - Obesity, Lissette Payne Active [place] 8 unspecified / TRANSPORTATION SECURITY OFFICER-C Community E66.9(ICD-10) Hospital Repository Active alf (current) LILO WHEELER Active [facility] 6 use of insulin / ALEKSANDROVICH Clinic Other Z79.4(ICD-10) [facility] Repository Active Unknown / NA Active [facility] 8 UNK(Unknown) Clinic Other [place] Repository Unknown R07.9 - Chest pain, Javy Mccoy Active [place] 8 unspecified / Community R07.9(ICD-10) Hospital Repository Active Other TOIBAS MARTINEZ Active [place] 3 cardiomyopathies / Clinic Other I42.8(ICD-10) [facility] Repository Active Paroxysmal atrial TOBIAS MARTINEZ Active [place] 8 fibrillation / Clinic Other I48.0(ICD-10) [place] [facility] Repository PROCEDURES PROCEDURES No Procedure Records FoundRESULTS RESULTS EMERGENCY DEPARTMENT Observed: 08/04/2018 Status: F Source: [place] SUMMARY 10:11 PM [facility] REPOSITORY [facility] Medical Records Department [address] [address] Emergency Department Summary 08/04/18 1713 MR#: [id number] Acct: [id number] Name: MICHELLE JULES Rep #: [id number] : 1965 53 From: Marysol Ryder MD PCP: Mello Ding MD Status: DEP ER - ER Visit Summary Date of Service: 08/04/18 Chief Complaint: Fever, cough, body aches History of Present Illness: The patient is a 53 F who reports body aches, congestion, cough, sore throat that started on the . She reports her temperature being up to 101-102. Last dose of medication for anything with fever was yesterday. She did get a flu shot this year. Past history significant for coronary disease, diabetes, hypertension, high cholesterol, RLS, dilated cardiomyopathy. She does have an ICD. Physical Examination: Vital signs are unremarkable. Patient is afebrile 97.9. Patient is lying in bed no acute distress. Head neck examination reveals moist mucous membranes. Posterior pharynx is normal. Heart is regular rate and rhythm. Lung sounds are clear. Abdomen is soft nontender. Neuro exam is unremarkable. Test Results: CBC was normal white count hemoglobin 11.6. Chemistry studies remarkable only for creatinine 1.13. Influenza swab is negative. Two-view chest x-ray shows stable pacemaker with no infiltrate. Emergency Department Course and Treatment: Patient was given Toradol and IV fluids. On repeat evaluation she does feel somewhat improved. Patient was not sure that her symptoms are consistent with viral syndrome. She will use Tylenol, ibuprofen, and push fluids at home. Treatment Plan: [] Disposition: Discharge Impression: Viral syndrome This note was generated with [employer] dictation software. It may contain incorrect words, spelling, and punctuation that were not noted in review of the chart prior to signing ED Disposition - Plan for ED Patient: Chief Complaint: General Illness Referrals: Mello Ding MD [Primary Care Provider] - What to do if you have Problems For any increased pain, shortness of breath, bleeding, nausea or vomiting, chest pain, or any unexpected problems, contact your Primary Care Provider. Call [facility] ([phone]) or report to the closest Emergency Room. Call 911 if necessary. 08/04/18 2211 <Electronically signed by Marysol Ryder MD> Date Marysol Ryder MD Cosigner Signature (If Indicated): Date CC: Mello Ding MD DISCHARGE INSTRUCTION Observed: 08/04/2018 Status: F Source: [place] 6:35 PM [facility] REPOSITORY [facility] Medical Records Department [address] [place] [address] Discharge Instruction 08/04/181833 MR#: [id number] Acct: [id number] Name: MICHELLE JULES Rep #: [id number] : 1965 53 From: Marysol Ryder MD PCP: Mello Ding MD Status: REG ER ED Disposition - Plan for ED Patient: Disposition: Home or Assisted Living Chief Complaint: General Illness Instructions: ED Viral Syndrome Referrals: Mello Ding MD [Primary Care Provider] - 1 Week if not improving What to do if you have Problems For any increased pain, shortness of breath, bleeding, nausea or vomiting, chest pain, or any unexpected problems, contact your Primary Care Provider. Call [facility] ([phone]) or report to the closest Emergency Room. Call 911 if necessary. 08/04/181834 <Electronically signed by Marysol Ryder MD> Date Marysol Ryder MD Cosigner Signature (If Indicated): Date CC: Mello Ding MD Observed: 08/04/2018 Status: F Source: [place] INFLUENZA A+B (RAPID 5:20 PM [facility] J[facility]) REPOSITORY FLU A/B Rapid Negative test results should be confirmed with FLU PANEL MOLECULAR if indicated. Influenza Ag, Direct Presumptive NEGATIVE for Influenza A/B Antigen (See Note) Performed By: #### M101.0101 #### [facility] [address] [place], [place], [address] CBC W/DIFF, AUTOMATED Collected: 08/04/2018 Status: F Source: [place] 5:15 PM [facility] REPOSITORY TYPE CODE TESTS RESULT OUT OF RANGE REFERENCE UNITS LAB L100.1000 4.4-11.0 K/mm3 Normal WBC 7.1 LAB L100.1200 4.2-5.4 M/mm3 Normal RBC 4.46 LAB L100.1300 12.0-15.0 g/dl Low HGB 11.6 LAB L100.1400 37-47 % Low HCT 36.8 LAB L100.1500 81-99 fL Normal MCV 82.5 LAB L100.1600 27.0-32.0 pg Low MCH 26.0 LAB L100.1700 32-36 g/gl Low MCHC 31.5 LAB L100.1810 11.6-14.6 % High RDW CV 17.1 LAB L100.1820 35.1-43.9 fl High RDW SD 50.1 LAB L100.1900 150-450 K/mm3 Normal PLT 208 LAB L100.2000 6.2-12.0 fl Normal MPV 10.1 LAB L100.2100 47-70 % Normal NEUT% 64.2 LAB L100.2200 19-41 % Low LY% 18.1 LAB L100.2300 0-10 % High MONO% 16.6 LAB L100.2400 0-5 % Normal EO% 0.3 LAB L100.2500 0-1 % Normal BASO% 0.4 LAB L100.2550 0.0-0.9 % Normal IM GRAN % 0.400 Result Comment: IG% - Immature Granulocytes (promyelocytes, myelocytes and metamyelocytes) > 1% indicates that a LEFT SHIFT is Present. LAB L100.2620 2.0-7.7 X10 3/uL Normal Absolute Neut 4.6 LAB L100.2720 0.83-4.51 X10 3/ul Normal Absolute Lymph 1.28 Performed By: #### L100.0100 #### [facility] [address] [place], [address] BASIC METABOLIC Collected: 08/04/2018 Status: F Source: [place] PROFILE (BMP) 5:15 PM [facility] REPOSITORY TYPE CODE TESTS RESULT OUT OF RANGE REFERENCE UNITS LAB L501.0100 74-106 mg/dL Normal GLU 93 Result Comment: Please note revised GLUCOSE reference range effective 2017. LAB L501.1000 7-18 mg/dL Normal BUN 16 LAB L501.1100 0.55-1.02 mg/dL High CREAT,SERUM 1.13 Result Comment: The validity of the calculated GFR AND GFRAA in patients over 70 years has not been determined. Clinical correlation is essential. LAB L501.1110 >60 mL/min Low EST GFR 54 Result Comment: Non- GFR Calc LAB L501.1115 >60 mL/min Normal EST GFR - AA 65 Result Comment: GFR Calc LAB L501.1255 ml/min Normal Estimated CRCL 60.86 LAB L501.1300 10-20 RATIO Normal BUN/CRE 14.2 LAB L501.2200 8.5-10 mg/dL Normal .1 CA 8.8 LAB L501.5300 136-14 mmol/L Normal 5 NA 136 LAB L501.5600 3.5-5. mmol/L Normal 1 K 3.9 LAB L501.5900 98-107 mmol/L Normal CL 101 LAB L501.6100 21.0-3 mmol/L Normal 2.0 CO2 27.0 LAB L501.6200 5-15 Normal GAP 8 Performed By: #### L500.2500 #### [facility] [address] [facility] [place], [address] CHEST PA AND LATERAL Observed: 08/04/2018 Status: F Source: [place] 5:03 PM [facility] REPOSITORY [facility] Imaging Services [address] [place] [address] Chest PA and Lateral MR#: [id number] Acct: [id number] Name: MICHELLE JULES Rep #: [id number] : 1965 F 53 From: Jose R Bernard MD PCP: Mello Ding MD Status: REG ER Study: Chest PA and Lateral Date of Exam: 08/04/18 Exam# [id number] Ordering Dr: Marysol Ryder MD STUDY: X-RAY CHEST REASON FOR EXAM: Female, 53 years old. Cough. TECHNIQUE: Frontal and lateral views of the chest. COMPARISON: July 29, 2018 FINDINGS: Pacemaker device on the left is stable. The lungs are clear and expanded. There is no demonstrated pleural abnormality. Normal size heart. Normal mediastinum and remy. Normal visualized pulmonary arteries. Normal visualized aortic arch and descending thoracic aorta. Normal visualized thoracic spine. Normal visualized ribs, clavicles, and shoulders. There is no demonstrated abnormality of the visualized soft tissue structures of the upper abdomen. RAD/Chest PA and Lateral IMPRESSION: Stable pacemaker device. No focal infiltrate. Electronically Signed: Jose R Bernard MD at 17:57 EST , Service support , CC: Marysol Ryder MD; Mello Ding MD Quality Assurance Supervisor Trim: Signed ENDOCRINOLOGY VISIT Observed: 07/31/2018 Status: F Source: [place] REPORT 8:22 AM [facility] REPOSITORY [facility] [address] [place] [address]. [address] [place] [address] OFFICE VISIT Date of Service: 07/30/18 MR#: [id number] Acct: [id number] Name: MICHELLE JULES Rep #: [id number] : 1965 Provider: Lissette Payne NP Age/Sex: 53/F Location: [facility] [place] Status: Signed HPI History of present illness Michelle Thomas is a 53 year old female who presents for follow up of diabetes type 2. Diagnosed in 2002. Continues on prandin, basaglar 48 units daily. Continues on admelog for meals and sliding scale. Pt denies difficulty with injections or self monitoring of BG. Denies any signs of infection or irritation at site of injections. Reports taking insulin as directed Today patient reports she had adjustment in her admelog by PCP. She is now at admelog 15 units at each meal and sliding scale. This recent adjstment has improved BG readings. Recent ER visit for lower leg edema and 12lb weight gain in few weeks. ER ask patient to increase lasix for 4 days but did not give her RX. The issue is patient gets medications prepackaged from [facility] and has no way to increase without rx. At time of visit: -Pt denies symptoms of hypertensive emergency (CP,SOB,HUGHES, or blurred vision) and hypotension(dizziness or lightheadedness) -Pt denies symptoms of hypoglycemia ( sweaty, confusion, anxiety, tremor, hunger, palpitations) and hyperglycemia ( polydipsia, polyuria) -Pt denies potential medication adverse effect. Hypoglycemia Aware of hypoglycemia: yes Able to self treat low BG: Yes Frequent low Blood sugar: No Has supply of glucagon: no Diet has been eating 3 meals daily. Can carb count Occ bedtime snack SMBG average 200 range 160-300 Checks 3-4 times daily Exam Const General: comfortable, no acute distress Nutritional Appearance: well nourished, overweight Orientation: oriented x3 HENMT Head: normal to inspection, normocephalic Ears: hearing grossly normal bilaterally Mouth: oral mucosae normal, moist mucous membranes Teeth and gingiva: dentition normal Eyes General: appearance normal, both eyes and all related structures Eyelids: eyelids normal Conjunctivae: conjunctivae normal Sclera: sclerae normal Pupils: PERRL Neck Neck: normal visual inspection, no lymphadenopathy Resp Effort AND Inspection: normal respiratory effort, able to speak in complete sentences, symmetric chest movement Auscultation: Bilateral: Clear to Auscultation Cardio Rate: regular rate Rhythm: regular rhythm Heart Sounds: S1 normal, S2 normal GI Inspection: normal to inspection Auscultation: normal bowel sounds Palpation: soft Skin General: no rashes or lesions noted Wounds: no wounds Diabetic Foot Pulses: L dorsalis pedis pulse: normal, R dorsalis pedis pulse: normal Monofilament test: Left foot: normal Neuro General: gait normal, moves all extremities Cognition: normal cognition Speech: speech normal Gait: normal gait Extrem General: normal to inspection, pedal edema Psych Appearance: well kempt Mental Status: mental status grossly normal Mood: congruent mood Affect: normal affect Speech and Movement: speech and movement normal Attitude: cooperative Thought Process: normal Thought Content: normal Judgment: judgment good Type: type 2, insulin-requiring Glucose control symptoms: Reports high post-meal glucose and high fasting glucose Weight and fatigue symptoms: Denies snoring Cardiopulmonary symptoms: Reports chest pain at rest; denies dyspnea on exertion, lightheadedness or myalgias GI symptoms: Reports constipation; denies diarrhea, nausea/dyspepsia or vomiting Other symptoms: Denies blurry vision or change in vision Pertinent visit history: Reports recent visit to ER; Denies recent hospital admission or recent 911 calls Self monitoring: Yes Percentage of fasting blood glucose within goal: <25% of the time Dietary compliance: Diabetes: other Diabetes education in past year: Yes Glucose testing: demonstrates correct use of meter day education - understands ketone testing: Yes Physical activity: regular Intake Vital Signs07/30/18 Body Mass Index (BMI) 35.1 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 [Ecotrin] 81 mg PO DAILY 04/18/13 [History Confirmed 07/30/18] Furosemide [Lasix] 40 mg PO DAILY #30 tab 04/24/13 [Rx Confirmed 07/30/18] Magnesium Oxide [Mag-Ox 400] 400 mg PO BID #30 tab 06/01/13 [Rx Confirmed 07/30/18] alogliptin 25 mg tablet 25 mg PO DAILY 08/12/17 [History Confirmed 07/30/18] atorvastatin 10 mg tablet 10 mg PO DAILY 08/12/17 [History Confirmed 07/30/18] carvedilol 12.5 mg tablet 25 mg PO BID tab 08/12/17 [History Confirmed 07/30/18] oxybutynin chloride 5 mg tablet 15 mg PO DAILY 08/12/17 [History Confirmed 07/30/18] pantoprazole 40 mg tablet,delayed release 40 mg PO BID tab 08/12/17 [History Confirmed 07/30/18] pramipexole 0.25 mg tablet 0.75 mg PO QHS tab 08/12/17 [History Confirmed 07/30/18] spironolactone 25 mg tablet 25 mg PO DAILY 08/12/17 [History Confirmed 07/30/18] repaglinide 2 mg tablet See Rx Instructions PO TID #240 tab 10/07/17 [Rx Confirmed 07/30/18] Enalapril Maleate [Vasotec] 2.5 mg PO DAILY 11/07/17 [History Confirmed 07/30/18] Sertraline HCl [Zoloft] 50 mg PO DAILY 03/04/18 [History Confirmed 07/30/18] OneTouch Delica Lancets 30 gauge See Dose Instructions .ROUTE .MEDSUPPLY #300 ea NS 03/24/18 [Rx Confirmed 07/30/18] OneTouch Ultra Blue Test Strip See Dose Instructions .ROUTE .MEDSUPPLY #300 ea NS 03/24/18 [Rx Confirmed 07/30/18] pen needle, diabetic 32 gauge x See Dose Instructions .ROUTE .MEDSUPPLY #200 ea 03/24/18 [Rx Confirmed 07/30/18] insulin lispro (U- 100) 100 unit/mL subcutaneous solution See Rx Instructions SC TID #3 ml 05/06/18 [Rx Confirmed 07/30/18] Cetirizine HCl [Allergy Relief] 10 mg PO DAILY 05/16/18 [History Confirmed 07/30/18] Insulin Glargine,Hum.rec.anlog [Basaglar KwikPen U-100 Insulin] 50 unit SUBCUT 1700 05/16/18 [History Confirmed 07/30/18] flash glucose scanning reader See Dose Instructions .ROUTE .MEDSUPPLY #1 ea 05/28/18 [Rx Confirmed 07/30/18] flash glucose sensor kit See Dose Instructions .ROUTE .MEDSUPPLY #1 ea 05/28/18 [Rx Confirmed 07/30/18] Azelastine HCl [Astelin] 1 spray NASAL DAILY 06/22/18 [History Confirmed 07/30/18] Fluticasone 0.05% [Flonase Nasal [place]] 2 spray NASAL DAILY 06/22/18 [History Confirmed 07/30/18] insulin syringe-needle U-100 0.5 mL 31 gauge x 11/27 See Dose Instructions .ROUTE .MEDSUPPLY #90 ea 07/22/18 [Rx Confirmed 07/30/18] empagliflozin 10 mg tablet 10 mg PO DAILY 07/30/18 [History Confirmed 07/30/18] fexofenadine 180 mg tablet 180 mg PO DAILY 07/30/18 [History Confirmed 07/30/18] furosemide 40 mg tablet 40 mg PO DAILY #4 tab 07/30/18 [Rx Confirmed 07/30/18] Nurse's Note: blood sugars : low : 160 high : 383 [facility] Medical History Gout (Acute) Heart disease (Acute) Nonischemic dilated cardiomyopathy (Acute) Arthritis (Chronic) Diabetes type 2, controlled (Chronic) HTN (hypertension) (Chronic) Headache (Chronic) Hyperlipidemia (Chronic) Pulmonary HTN (Chronic) RLS (restless legs syndrome) (Chronic) Seasonal allergies (Chronic) Surgical History H/O colectomy (Acute) History of hysteroscopy (Acute) History of left heart catheterization (Acute) Hx of appendectomy (Acute) Family History Father Heart disease Myocardial infarction CAD (coronary artery disease) Mother CAD (coronary artery disease) Heart disease Social History Smoking Status: Never smoker second hand exposure: No alcohol intake: current alcohol intake frequency: a few times a month substance use type: does not use ROS Const Constitutional: Positive for fatigue; no anorexia, body ache, chills, fever(s), frequent falls, decreased energy, malaise, night sweats, weakness, weight change, sleep problems, abnormal sleep pattern, change in appetite, other, headache(s), snoring or excessive sweating Eyes Eyes: No blurry vision, change in vision, double vision, discharge, dry eyes, bulging eyes, floaters, visual disturbances, eye pain, light sensitivity, spots in vision, tunnel vision or other ENT ENT: Positive for nasal congestion, sinus pressure and nasal discharge; no abnormal hearing, ear pain, ear discharge, ear pressure, hearing loss, tinnitus, dizziness/vertigo, balance problems, nosebleed/epistaxis, nasal obstruction, nose pain, sinus pain, post nasal drip, headache(s), facial pain, dental pain, dry mouth, bad breath, hoarseness, lip swelling, mouth lesions, mouth pain, sore throat, tongue swelling, throat swelling, other, difficulty swallowing or neck pain Resp Respiratory: Positive for shortness of breath; no cough, change in phlegm color, chest congestion, excessive phlegm production, hemoptysis, pain on inspiration, pain with cough, snoring, stridor, wheezing or other Cardio Cardiology: Positive for chest pain at rest, chest pain with exertion and generalized swelling; no leg pain with exertion, excessive sweating, shortness of breath, dyspnea on exertion, irregular heart rhythm, lightheadedness, orthopnea, radiating jaw, neck or arm pain, fast heart rate, slow heart rate, palpitations or other Gastro GI: Positive for constipation; no abdominal pain, belching, bloating, change in bowel habits, change in stool character, coffee ground emesis, cramping, diarrhea, heartburn, difficulty swallowing, feeling full early, excessive flatus, incontinent of stools, Vomiting blood/hematemesis, blood in stool, loose stools, Black,tarry stools, nausea/dyspepsia, pain with swallowing, vomiting or other Genitourinary-Female: No difficulty urinating, burning urination, painful urination, urinary incontinence, urinary frequency, urinary urgency, urinary hesitancy, urinary retention, blood in urine, Frequent nighttime urination/ nocturia, post void dribbling, suprapubic fullness, side pain, sexual problems, genital lesions, genital itching, hot flashes, abnormal periods, abnormal vaginal bleeding, absent period, painful periods, light periods, heavy periods, difficulty getting , painful intercourse, pelvic pain, vaginal dryness, vaginal odor, Vaginal Itching or other Musc Musculoskeletal: Positive for back pain and radiating pain into limb; no abnormal walking, joint pain, deformity, joint swelling, limited range of motion, loss of height, muscle cramps, muscle weakness, decreased muscle mass, body aches, neck pain, numbness, stiffness, tingling or other Skin Skin: No acne, hair loss, change in hair, nail changes, boil, change in skin color, dry skin, redness, excessive hair growth, yellowing of the skin, lesions, itching, rash, skin pain, skin ulcer, sores, skin swelling, wounds or other Breast Breast: No other Neuro Neurology: No frequent falls, weakness, visual disturbances, abnormal hearing, headache(s), abnormal walking, numbness or tingling Psych Psychiatric: No abnormal sleep pattern, No change in appetite Endo Endocrine: Positive for fatigue; no other or excessive sweating Aller/Imm Allergy/Immunologic: No lip swelling, tongue swelling, throat swelling, wheezing or itchy eyes Assessment AND Plan Problems 1. Diabetes mellitus type 2 in obese E11.69; E66.9 Plan BG readings improved this visit. According to patient she had only been taking her admelog base insulin at evening meal and using sliding scale otherwise. This was corrected by her PCP who discovered this and changed her to taking admelog 15 units at each meal. Also considering jardiance instead of prandin but insurance has not approved. Control portions Food selections should be healthy Choose more low carb vegetables Avoid snacks and desserts. Drink water Exercise daily Eat more fresh foods, not canned or processed Eat more slowly Is asking for rx to comply with ER directions to increase lasix for 4 days. Patient Instructions Monitor diet carefully. Monitor weight and check weight consistently. May increase admelog by 1 unit every 3 days to improve glycemic control as long as all BG above 150. Medications New: Plan Detail Additional Comments 1. Please schedule follow up in 3 months. 2. Lab work one week before appointment. 3. Discussed importance of regular exercise and recommend starting or continuing a regular exercise program for good health. 4. The patient was encouraged to lose weight for good health 5. The importance of monitoring blood sugar regularly was reviewed. 6. The importance of monitoring the HBA1c level regularly was reviewed. 7. The importance of prper foot care and regularly checking feet to prevent sores and loss of limbs was reviewed. 8. The importance of keeping BP at or below 130/80 to prevent stroke, heart attacks, kidney failure, blindness was reviewed. Spent approximately 30 minutes with patient with over 50% of time spent in discussion and counseling regarding medication adjustment, symptoms and treatment of hypoglycemia, diet adherence, and checking BG before driving. Coding Level of Care Code Off vis,est,level 4 Diagnoses Diabetes mellitus type 2 in obese E11.69; E66.9 07/31/18 0822 <Electronically signed by Lissette NOLAN> Date Lissette NOLAN Cosigner Signature: Date (if applicable) CC: EMERGENCY DEPARTMENT Observed: 07/30/2018 Status: F Source: [place] SUMMARY 1:22 AM [facility] REPOSITORY [facility] Medical Records Department [address] [place] [address] Emergency Department Summary 07/29/18 1720 MR#: [id number] Acct: [id number] Name: MICHELLE JULES Rep #: [id number] : 1965 53 From: Javy Saul DO PCP: Mello Ding MD Status: DEP ER - ER Visit Summary Date of Service: 07/29/18 Chief Complaint: Chest pain and swelling History of Present Illness: The patient is a 53 F who presents to the emergency room after being referred by her primary care physician. Patient states that for the past several days she has felt that her feet and her hands are swollen. She also notes a chest tightness and a cough that is worse when she lays down. She notes that the anterior aspect of her chest is sore when she takes a deep breath then makes it worse. She has a history of nonischemic cardiomyopathy however her ejection fraction has significantly improved for the past several years in October 2017 it was 50-55% with mild left ventricular hypokinesis. 2014 she had a heart cath that was negative. Her ejection fraction reportedly was as low as 15%. She sees [facility]. She has a pacemaker. That was changed last fall. Physical Examination: Afebrile vital signs are stable Gen: Well-nourished well-developed Head: Normocephalic atraumatic Eyes: Perrl EOMI ENT: TMs clear no rhinorrhea moist mucous membranes Neck: Supple no lymphadenopathy no JVD nontender CVS: Regular rate rhythm no murmurs normal S1-S2 Respiratory: No distress clear to auscultation bilaterally anterior mid sternum is tender to palpation and reproduces the pain the patient experiences with deep breathing Abdomen: Soft nontender nondistended normal bowel sounds no masses Back: Nontender Extremity: Nontender no edema Skin: Normal color no rash Neuro: alert orientated 3 CN II-XII intact normal strength sensation reflexes gait cerebellar Psych: Normal affect normal mood Test Results: EKG from the office was reviewed that shows a ventricular paced rhythm. Hemoglobin 10.3. Glucose 205. Troponin negative. Beta natruretic peptide is 20.1. Chest x-ray showed no pleural effusion or evidence of CHF. Emergency Department Course and Treatment: I believe the chest pain is chest wall related. It is reproducible. I do not appreciate edema on the patient but she tells me that her feet and hands are more swollen than normal. I do not see evidence of acute congestive heart failure or need for hospitalization. Patient may take her Lasix twice a day for the next 4 days and follow-up with her doctor in the office. Impression: 1. Chest wall pain 2. Lymphedema This note was generated with Ubiation software. It may contain incorrect words, spelling, and punctuation that were not noted in review of the chart prior to signing ED Disposition - Plan for ED Patient: Disposition: Home or Assisted Living Chief Complaint: Edema Instructions: ED Chest Pain Costochondritis, ED Lymphedema Referrals: Mello Ding MD [Primary Care Provider] - 1 Week Additional Instructions: I would recommend taking your Lasix twice a day for the next 4 days. Monitor your salt intake. What to do if you have Problems For any increased pain, shortness of breath, bleeding, nausea or vomiting, chest pain, or any unexpected problems, contact your Primary Care Provider. Call [facility] ([phone]) or report to the closest Emergency Room. Call 911 if necessary. 07/30/18 0122 <Electronically signed by Javy Saul DO> Date Javy Saul DO Cosigner Signature (If Indicated): Date CC: Mello Ding MD CBC W/DIFF, AUTOMATED Collected: 07/29/2018 Status: F Source: [place] 5:38 PM [facility] REPOSITORY TYPE CODE TESTS RESULT OUT OF RANGE REFERENCE UNITS LAB L100.1000 4.4-11.0 K/mm3 Normal WBC 7.3 LAB L100.1200 4.2-5.4 M/mm3 Low RBC 4.05 LAB L100.1300 12.0-15.0 g/dl Low HGB 10.3 LAB L100.1400 37-47 % Low HCT 33.9 LAB L100.1500 81-99 fL Normal MCV 83.7 LAB L100.1600 27.0-32.0 pg Low MCH 25.4 LAB L100.1700 32-36 g/gl Low MCHC 30.4 LAB L100.1810 11.6-14.6 % High RDW CV 16.4 LAB L100.1820 35.1-43.9 fl High RDW SD 49.7 LAB L100.1900 150-450 K/mm3 Normal PLT 196 LAB L100.2000 6.2-12.0 fl Normal MPV 9.8 LAB L100.2100 47-70 % Normal NEUT% 66.6 LAB L100.2200 19-41 % Normal LY% 24.4 LAB L100.2300 0-10 % Normal MONO% 6.5 LAB L100.2400 0-5 % Normal EO% 2.0 LAB L100.2500 0-1 % Normal BASO% 0.4 LAB L100.2550 0.0-0.9 % Normal IM GRAN % 0.100 Result Comment: IG% - Immature Granulocytes (promyelocytes, myelocytes and metamyelocytes) > 1% indicates that a LEFT SHIFT is Present. LAB L100.2620 2.0-7.7 X10 3/uL Normal Absolute Neut 4.9 LAB L100.2720 0.83-4.51 X10 3/ul Normal Absolute Lymph 1.79 Performed By: #### L100.0100 #### [facility] [address] [place], [place], [id number] BASIC METABOLIC Collected: 07/29/2018 Status: F Source: [place] PROFILE ([facility]) 5:38 PM [facility] REPOSITORY TYPE CODE TESTS RESULT OUT OF RANGE REFERENCE UNITS LAB L501.0100 74-106 mg/dL High GLU 205 Result Comment: Glucose result greater than or equal to 200 mg/dL suggests DIABETES MELLITUS per A.D.A. criteria. Please note revised GLUCOSE reference range effective 2017. LAB L501.1000 7-18 mg/dL Normal BUN 16 LAB L501.1100 0.55-1.02 mg/dL Normal CREAT,SERUM 0.96 Result Comment: The validity of the calculated GFR AND GFRAA in patients over 70 years has not been determined. Clinical correlation is essential. LAB L501.1110 >60 mL/min Normal EST GFR 65 Result Comment: Non- GFR Calc LAB L501.1115 >60 mL/min Normal EST GFR - AA 79 Result Comment: GFR Calc LAB L501.1255 ml/min Normal Estimated CRCL 71.64 LAB L501.1300 10-20 RATIO Normal BUN/CRE 16.7 LAB L501.2200 8.5-10 mg/dL Normal .1 CA 8.7 LAB L501.5300 136-14 mmol/L Normal 5 NA 139 LAB L501.5600 3.5-5. mmol/L Normal 1 K 3.7 LAB L501.5900 98-107 mmol/L Normal CL 106 LAB L501.6100 21.0-3 mmol/L Normal 2.0 CO2 25.0 LAB L501.6200 5-15 Normal GAP 8 Performed By: #### L500.2500, L501.4010 #### [facility] [address] [facility] [place], [place], [id number] TROPONIN-I Collected: 07/29/2018 Status: F Source: [place] 5:38 PM [facility] REPOSITORY TYPE CODE TESTS RESULT OUT OF RANGE REFERENCE UNITS LAB L501.4010 <0.045 ng/mL Normal < 0.015 TROPONIN-I Result Comment: TROPONIN-I EXPECTED VALUES <0.045 Negative 0.045 - 0.590 Consistent with Cardiac Damage > OR = 0.600 Critical Value Not every elevated troponin is indicative of [place]. These values should be used with clinical judgement in examining the patient's clinical picture for diagnosis. To establish a diagnosis of [place] versus myocardial injury, there must be a demonstrated rise and/or fall in the troponin values, in addition to ischemic symptoms, EKG changes, new regional wall motion abnormality, and/or angiographical evidence. PLEASE NOTE: REFERENCE RANGES EDITED 17 Performed By: #### L500.2500, L501.4010 #### [facility] [address] [place], [place], [address] BNP,B-TYPE NATRIURETIC Collected: 07/29/2018 Status: F Source: [place] 5:38 PM [facility] REPOSITORY TYPE CODE TESTS RESULT OUT OF RANGE REFERENCE UNITS LAB L503.6620 0-100 pg/mL Normal B-TYPE 20.1 NEDRA PEP Performed By: #### L503.6620 #### [facility] [address] [place], [address] CHEST PA AND LATERAL Observed: 07/29/2018 Status: F Source: [place] 5:21 PM [facility] REPOSITORY [facility] Imaging Services [address] [place] [address] Chest PA and Lateral MR#: [id number] Acct: [id number] Name: MICHELLE JULES Rep #: [id number] : 1965 F 53 From: Rajan Yen MD PCP: Mello Ding MD Status: REG ER Study: Chest PA and Lateral Date of Exam: 07/29/18 Exam# [id number] Ordering Dr: Javy Saul DO STUDY: X-RAY CHEST REASON FOR EXAM: Female, 53 years old. Lower extremity edema, chest pain TECHNIQUE: PA and lateral views of the chest. COMPARISON: Prior study of 06/22/2018 FINDINGS: A left-sided pacemaker is present. headlight adjuster leads are seen. The lungs are clear and expanded. There is no demonstrated pleural abnormality. Normal size heart. Normal mediastinum and remy. Normal visualized pulmonary arteries. Normal visualized aortic arch and descending thoracic aorta. Normal visualized thoracic spine. Normal visualized ribs, clavicles, and shoulders. There is no demonstrated abnormality of the visualized soft tissue structures of the upper abdomen. RAD/Chest PA and Lateral IMPRESSION: No acute cardiopulmonary disease process is seen. Chest findings are stable in the interval. Electronically Signed: Rajan Yen MD at 18:59 EST , Service support , CC: Javy Saul DO; Mello Ding MD Quality Assurance Supervisor Trim: Signed PROGRESS Observed: 07/29/2018 Status: COMPLETED Source: [place] 4:01 PM [facility] REPOSITORY HNO ID: [id number] Author: Mello Ding Service: (none) Author Type: Physician Type: Progress Notes Filed: 07/29/2018 4:48 PM Note Text: Patient presents with: Recheck: refills Medication Question: pt. asking why she is on 3 BP medications Edema: both ankles x 2 weeks HPI: Patient presents today for office visit for followup. DM: seeing DANITZA Payne and pharmacy. Sugars poorly controlled. They are starting to improve. Was as high as in the 400's. Now down to the 200;s CARDIO: mildly short of breath. Some weight gain in the last month.12 lbs. No chest pain. Some increased edema stays in her feet, ankles and hands She is compliant with meds. No pain in legs or calves. No redness or warmth. She reports mild pleuritic chest pain. Non exertional. Seeing [facility].. HLD:no new myalgias. GERD: occasional heartburn. RLS:stable PSYCH:emotionally is stable. Component Latest Ref Rng AND Units 07/21/2018 Albumin 3.9 - 4.9 g/dL 4.4 Calcium 8.5 - 10.2 mg/dL 9.5 Bilirubin, Total 0.2 - 1.3 mg/dL 0.2 Alkaline Phosphatase 34 - 123 U/L 182 (H) AST 13 - 35 U/L 18 Glucose 74 - 99 mg/dL 107 (H) BUN 7 - 21 mg/dL 14 Creatinine 0.58 - 0.96 mg/dL 0.76 Sodium 136 - 144 mmol/L 140 Potassium 3.7 - 5.1 mmol/L 4.1 Chloride 97 - 105 mmol/L 102 CO2 22 - 30 mmol/L 26 Anion Gap 9 - 18 mmol/L 12 ALT 7 - 38 U/L 17 eGFR- >60 eGFR-All Other Races . >60 Cholesterol, Total <200 mg/dL 147 Triglyceride <150 mg/dL 230 (H) HDL Cholesterol >39 mg/dL 38 (L) LDL Cholesterol <100 mg/dL 63 Non HDL Cholesterol <130 mg/dL 109 Fasting Time hrs 16 VLDL Cholesterol <30 mg/dL 46 (H) TC:HDL Ratio <5.10 3.87 LDL:HDL Ratio <2.54 1.66 Hemoglobin A1C 4.3 - 5.6 % 9.4 (H) Estimated Average Glucose mg/dL 223 MEDICATIONS: Current Outpatient Prescriptions: ertugliflozin (STEGLATRO) 5 mg tab Take 5 mg by mouth once daily. fexofenadine (JASVIR) 180 mg tablet Take 1 tablet by mouth once daily. enalapril (VASOTEC) 2.5 mg tablet Take 1 tablet by mouth once daily. flash glucose scanning reader (TSSI SystemsSTYLE MARISSA 14 DAY READER) [facility] Use reader to check blood glucose (scan at least every 8 hours) flash glucose sensor (FREESTYLE MARISSA 14 DAY SENSOR) kit Change sensor every 14 days insulin glargine (BASAGLAR KWIKPEN U-100 INSULIN) 100 unit/mL (3 mL) inpn Inject 50 Units subcutaneously every evening. insulin lispro (ADMELOG SOLOSTAR U-100 INSULIN) 100 unit/mL inpn Inject 15 Units subcutaneously three times daily before meals. pantoprazole DR (PROTONIX) 40 mg tablet TAKE 1 TABLET BY MOUTH TWICE DAILY carvedilol (COREG) 25 mg tablet TAKE 1 TABLET TWICE A DAY spironolactone (ALDACTONE) 25 mg tablet TAKE 1 TABLET DAILY furosemide (LASIX) 40 mg tablet TAKE 1 TABLET DAILY atorvastatin (LIPITOR) 10 mg tablet TAKE 1 TABLET DAILY dexamethasone sodium phosphate (DECADRON) 4 mg/mL injection 4 mg as needed (for physical therapy). Pramipexole 0.75 mg tablet Take 1 tablet by mouth daily at bedtime. cetirizine (ZYRTEC) 10 mg tablet Take 1 tablet by mouth once daily as needed (for itching, sneezing or runny nose). azelastine (ASTELIN,ASTEPRO) 0.1% nasal spray Use 1-2 Sprays in each nostril twice daily as needed. sertraline (ZOLOFT) 50 mg tablet Take 1 tablet by mouth once daily. Take 1/2 tab once a day orally for one week then 1 tab once a day fluticasone (FLONASE) 50 mcg/actuation nasal spray Use 2 Sprays in each nostril once daily. Blood-Glucose Meter (ONETOUCH ULTRA2) monitoring kit 1 Each as needed. oxybutynin ER (DITROPAN XL) 15 mg 24 hr Extended Rel Tab TAKE 1 TABLET BY MOUTH DAILY triamcinolone acetonide (KENALOG) 0.1 % ointment APPLY TO AFFECTED AREA(S) ON LEGS TWICE A DAY NEEDED *USE 2 WEEKS ON, 1 WEEK OFF *NOT FOR FACE, ARMPITS aspirin, enteric coated (ECOTRIN LOW STRENGTH) 81 mg EC tablet Take 1 tablet by mouth once daily. alogliptin 25 mg tab Take 1 tablet by mouth once daily. magnesium oxide (MAG-OX) 400 mg tablet Take 1 tablet by mouth twice daily. ONETOUCH ULTRA TEST test strip USE TO TEST BLOOD SUGAR THREE TIMES A DAY Lancets lancets Test blood sugar(s) 3 times daily. Blood-Glucose Meter (FREESTYLE SYSTEM KIT) monitoring kit 1 Each as needed. Insulin Syringe-Needle U-100 (INSULIN SYRINGE) 1/2 mL 30 x 5/16 syrg Use 1 syringe for each dose 1/day insulin needles, DISPOSABLE, (PEN NEEDLE) 31 gauge x 5/16 ndle Use one needle per dose. 1 per day. No current facility-administered medications for this visit. ALLERGIES: ALLERGIES Allergen Reactions - Adhesive Tape (Natty* Itching - Metformin Other: See Comments Caused arrhythmia issues - Simvastatin Other: See Comments myalgia PAST MEDICAL HISTORY Diagnosis Date - Anxiety disorder in conditions classified elsewhere - Arthritis left knee with spur - Cardiomyopathy, nonischemic (HCC) 04/2013 - Degenerative joint disease involving multiple joints shoulders, right knee - Essential hypertension, benign - Family history of colon cancer 5y screening cycle - GERD (gastroesophageal reflux disease) - History of placement of internal cardiac defibrillator 09/03/2013 - Neuropathy (HCC) 02/09/2016 - Obesity, unspecified - Pure hypercholesterolemia - Restless leg syndrome 02/09/2016 - Snoring - Type II or unspecified type diabetes mellitus without mention of complication, not stated as uncontrolled - Vitamin D deficiency PAST SURGICAL HISTORY Procedure Laterality Date - APPENDECTOMY 2006 - COLONOSCOP W/ OR W/O BRS SPEC 10/08/06 - COLONOSCOP W/ OR W/O BRS SPEC 09/18/2011 Colonoscopy - COLONOSCOP W/ OR W/O BRS SPEC 09/27/2016 Colonoscopy - DESTR LES BENIGN/ PREMAL 02/06/12 Ablation anal condyomata - EGD 09-01-15 - INSERT DUAL CHAMBER ICD 09/03/13 pacemaker/defibulator - KNEE SCOPE,DIAGNOSTIC right - LAPAROSCOPY, SURGICAL, APPENDECTOMY 10/22/06 - PAST SURGICAL HISTORY OF Right - ganglion cyst - PAST SURGICAL HISTORY OF Left 2016 cyst removed from left foot - REMOVEANDREPLACE ICD PULSE GEN MULTI LEAD 03/12/2018 GUN EXAMINER-D - TONSILLECTOMY AND ADENOIDECTOMY HX age 6 - TOTAL ABDOM HYSTERECTOMY 2005 menorrhagia/dysmenorrhea (negative for cancer) -- [place] FAMILY HISTORY Problem Relation Age of Onset - Colon Cancer Father in early 50s - Heart Father 55 [place] - Breast Cancer Mother in 50s - Diabetes Mother - Coronary Artery Disease Mother age early-mid 60's - Colon Cancer Paternal Grandmother - other (epilepsy) Son - Breast Cancer Daughter - other (heart murmur) Daughter Social History Marital status: Spouse name: Years of education: Number of children: 2 Occupational History 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 REVIEW OF SYSTEMS All other reviewed and negative other than HPI. HEALTH MAINTENANCE: Reviewed health maintenance issues today VITALS: BP 134/80 (BP Site: Right Arm, BP Position: Sitting, BP Cuff Size: Regular Adult) Pulse 64 Resp 18 Wt 108 kg (238 lb) BMI 35.15 kg/m? Last 4 Encounter Wt Readings: Date: Wt: 07/29/2018 108 kg (238 lb) 06/17/2018 102.5 kg (226 lb) 05/08/2018 101.2 kg (223 lb) 04/01/2018 98.4 kg (217 lb) PHYSICAL EXAMINATION: General appearance: Well appearing, alert, in no acute distress, well-hydrated, well nourished. Skin: Skin color, texture, turgor normal, no suspicious rashes or lesions Head: Normocephalic, no masses, lesions, tenderness or abnormalities Lungs: lungs clear to auscultation. No wheezing, rhonchi, rales Heart: RRR without murmur, gallop, or rubs. No ectopy Abdomen: Normal abdominal exam, Abdomen soft, non-tender. Bowel sounds normal. No masses, organomegaly Extremities: No deformities, skin discoloration, clubbing or cyanosis. Good capillary refill. One plus edema. ASSESSMENT/PLAN: 1. Chest pain, unspecified type - ICD9: 786.50, ICD10: R07.9 (primary diagnosis) - given increased edema. Pleuritic chest pain and weight gain, to Er for further eval. - ECG COMPLETE W INTERPRETATION 2. Coronary artery disease involving turtle mountain heart without angina pectoris, unspecified vessel or lesion type - ICD9: 414.01, ICD10: I25.1 - ASPIRIN 81 MG TABLET,DELAYED RELEASE - SPIRONOLACTONE 25 MG TABLET - FUROSEMIDE 40 MG TABLET - ENALAPRIL MALEATE 2.5 MG TABLET - CARVEDILOL 25 MG TABLET 3. Uncontrolled type 2 diabetes mellitus with diabetic neuropathy, without long-term current use of insulin (HCC) - ICD9: 250.62, 357.2, ICD10: E11.40, E11.65 - ALOGLIPTIN 25 MG TABLET 4. Anxiety - ICD9: 300.00, ICD10: F41.9 - SERTRALINE 50 MG TABLET 5. Restless leg syndrome - ICD9: 333.94, ICD10: G25.81 - PRAMIPEXOLE 0.75 MG TABLET 6. Essential hypertension, benign - ICD9: 401.1, ICD10: I10 - MAGNESIUM OXIDE 400 MG (241.3 MG MAGNESIUM) TABLET 7. Edema, unspecified type - ICD9: 782.3, ICD10: R60.9 8. SOB (shortness of breath) - ICD9: 786.05, ICD10: R06.0 Mello Ding MD CNOV Observed: 07/29/2018 Status: COMPLETED Source: [place] 3:40 PM [facility] REPOSITORY Office Visit (FAMPWS) MICHELLE JULES ([id number]) 1965 F Date Time Provider Department 07/29/18 3:40 PM MELLO DING During your visit today, we recorded the following information about you: Pulse Respiration Blood pressure Weight 64/minute 18/minute 134/80 108 kg Mello Ding MD 07/29/2018 4:48 PM Signed Patient presents with: Recheck: refills Medication Question: pt. asking why she is on 3 BP medications Edema: both ankles x 2 weeks HPI: Patient presents today for office visit for followup. DM: seeing DANITZA Payne and pharmacy. Sugars poorly controlled. They are starting to improve. Was as high as in the 400's. Now down to the 200;s CARDIO: mildly short of breath. Some weight gain in the last month.12 lbs. No chest pain. Some increased edema stays in her feet, ankles and hands She is compliant with meds. No pain in legs or calves. No redness or warmth. She reports mild pleuritic chest pain. Non exertional. Seeing cardiology with [facility].. HLD:no new myalgias. GERD: occasional heartburn. RLS:stable PSYCH:emotionally is stable. Component Latest Ref Rng AND Units 07/21/2018 Albumin 3.9 - 4.9 g/dL 4.4 Calcium 8.5 - 10.2 mg/dL 9.5 Bilirubin, Total 0.2 - 1.3 mg/dL 0.2 Alkaline Phosphatase 34 - 123 U/L 182 (H) AST 13 - 35 U/L 18 Glucose 74 - 99 mg/dL 107 (H) BUN 7 - 21 mg/dL 14 Creatinine 0.58 - 0.96 mg/dL 0.76 Sodium 136 - 144 mmol/L 140 Potassium 3.7 - 5.1 mmol/L 4.1 Chloride 97 - 105 mmol/L 102 CO2 22 - 30 mmol/L 26 Anion Gap 9 - 18 mmol/L 12 ALT 7 - 38 U/L 17 eGFR- >60 eGFR-All Other Races . >60 Cholesterol, Total <200 mg/dL 147 Triglyceride <150 mg/dL 230 (H) HDL Cholesterol >39 mg/dL 38 (L) LDL Cholesterol <100 mg/dL 63 Non HDL Cholesterol <130 mg/dL 109 Fasting Time hrs 16 VLDL Cholesterol <30 mg/dL 46 (H) TC:HDL Ratio <5.10 3.87 LDL:HDL Ratio <2.54 1.66 Hemoglobin A1C 4.3 - 5.6 % 9.4 (H) Estimated Average Glucose mg/dL 223 MEDICATIONS: Current Outpatient Prescriptions: ertugliflozin (STEGLATRO) 5 mg tab Take 5 mg by mouth once daily. fexofenadine (JASVIR) 180 mg tablet Take 1 tablet by mouth once daily. enalapril (VASOTEC) 2.5 mg tablet Take 1 tablet by mouth once daily. flash glucose scanning reader (TSSI SystemsSTYLE MARISSA 14 DAY READER) [facility] [place] Use reader to check blood glucose (scan at least every 8 hours) flash glucose sensor (FREESTYLE MARISSA 14 DAY SENSOR) kit Change sensor every 14 days insulin glargine (BASAGLAR KWIKPEN U-100 INSULIN) 100 unit/mL (3 mL) inpn Inject 50 Units subcutaneously every evening. insulin lispro (ADMELOG SOLOSTAR U-100 INSULIN) 100 unit/mL inpn Inject 15 Units subcutaneously three times daily before meals. pantoprazole DR (PROTONIX) 40 mg tablet TAKE 1 TABLET BY MOUTH TWICE DAILY carvedilol (COREG) 25 mg tablet TAKE 1 TABLET TWICE A DAY spironolactone (ALDACTONE) 25 mg tablet TAKE 1 TABLET DAILY furosemide (LASIX) 40 mg tablet TAKE 1 TABLET DAILY atorvastatin (LIPITOR) 10 mg tablet TAKE 1 TABLET DAILY dexamethasone sodium phosphate (DECADRON) 4 mg/mL injection 4 mg as needed (for physical therapy). Pramipexole 0.75 mg tablet Take 1 tablet by mouth daily at bedtime. cetirizine (ZYRTEC) 10 mg tablet Take 1 tablet by mouth once daily as needed (for itching, sneezing or runny nose). azelastine (ASTELIN,ASTEPRO) 0.1% nasal spray Use 1-2 Sprays in each nostril twice daily as needed. sertraline (ZOLOFT) 50 mg tablet Take 1 tablet by mouth once daily. Take 1/2 tab once a day orally for one week then 1 tab once a day fluticasone (FLONASE) 50 mcg/actuation nasal spray Use 2 Sprays in each nostril once daily. Blood-Glucose Meter (ONETOUCH ULTRA2) monitoring kit 1 Each as needed. oxybutynin ER (DITROPAN XL) 15 mg 24 hr Extended Rel Tab TAKE 1 TABLET BY MOUTH DAILY triamcinolone acetonide (KENALOG) 0.1 % ointment APPLY TO AFFECTED AREA(S) ON LEGS TWICE A DAY NEEDED *USE 2 WEEKS ON, 1 WEEK OFF *NOT FOR FACE, ARMPITS aspirin, enteric coated (ECOTRIN LOW STRENGTH) 81 mg EC tablet Take 1 tablet by mouth once daily. alogliptin 25 mg tab Take 1 tablet by mouth once daily. magnesium oxide (MAG-OX) 400 mg tablet Take 1 tablet by mouth twice daily. ONETOUCH ULTRA TEST test strip USE TO TEST BLOOD SUGAR THREE TIMES A DAY Lancets lancets Test blood sugar(s) 3 times daily. Blood-Glucose Meter (FREESTYLE SYSTEM KIT) monitoring kit 1 Each as needed. Insulin Syringe-Needle U-100 (INSULIN SYRINGE) 1/2 mL 30 x 5/16 syrg Use 1 syringe for each dose 1/day insulin needles, DISPOSABLE, (PEN NEEDLE) 31 gauge x 5/16 ndle Use one needle per dose. 1 per day. No current facility-administered medications for this visit. ALLERGIES: ALLERGIES Allergen Reactions - Adhesive Tape (Natty* Itching - Metformin Other: See Comments Caused arrhythmia issues - Simvastatin Other: See Comments myalgia PAST MEDICAL HISTORY Diagnosis Date - Anxiety disorder in conditions classified elsewhere - Arthritis left knee with spur - Cardiomyopathy, nonischemic (HCC) 04/2013 - Degenerative joint disease involving multiple joints shoulders, right knee - Essential hypertension, benign - Family history of colon cancer 5y screening cycle - GERD (gastroesophageal reflux disease) - History of placement of internal cardiac defibrillator 09/03/2013 - Neuropathy (HCC) 02/09/2016 - Obesity, unspecified - Pure hypercholesterolemia - Restless leg syndrome 02/09/2016 - Snoring - Type II or unspecified type diabetes mellitus without mention of complication, not stated as uncontrolled - Vitamin D deficiency PAST SURGICAL HISTORY Procedure Laterality Date - APPENDECTOMY 2006 - COLONOSCOP W/ OR W/O BRS SPEC 10/08/06 - COLONOSCOP W/ OR W/O BRS SPEC 09/18/2011 Colonoscopy - COLONOSCOP W/ OR W/O BRS SPEC 09/27/2016 Colonoscopy - DESTR LES BENIGN/ PREMAL 02/06/12 Ablation anal condyomata - EGD 09-01-15 - INSERT DUAL CHAMBER ICD 09/03/13 pacemaker/defibulator - KNEE SCOPE,DIAGNOSTIC right - LAPAROSCOPY, SURGICAL, APPENDECTOMY 10/22/06 - PAST SURGICAL HISTORY OF Right 11- ganglion cyst - PAST SURGICAL HISTORY OF Left 2016 cyst removed from left foot - REMOVEANDREPLACE ICD PULSE GEN MULTI LEAD 03/12/2018 GUN EXAMINER-D - TONSILLECTOMY AND ADENOIDECTOMY HX age 6 - TOTAL ABDOM HYSTERECTOMY 2005 menorrhagia/dysmenorrhea (negative for cancer) -- [place] FAMILY HISTORY Problem Relation Age of Onset - Colon Cancer Father in early 50s - Heart Father 55 [place] - Breast Cancer Mother in 50s - Diabetes Mother - Coronary Artery Disease Mother age early-mid 60's - Colon Cancer Paternal Grandmother - other (epilepsy) Son - Breast Cancer Daughter - other (heart murmur) Daughter Social History Marital status: Spouse name: Years of education: Number of children: 2 Occupational History 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 REVIEW OF SYSTEMS All other reviewed and negative other than HPI. HEALTH MAINTENANCE: Reviewed health maintenance issues today VITALS: BP 134/80 (BP Site: Right Arm, BP Position: Sitting, BP Cuff Size: Regular Adult) Pulse 64 Resp 18 Wt 108 kg (238 lb) BMI 35.15 kg/m? Last 4 Encounter Wt Readings: Date: Wt: 07/29/2018 108 kg (238 lb) 06/17/2018 102.5 kg (226 lb) 05/08/2018 101.2 kg (223 lb) 04/01/2018 98.4 kg (217 lb) PHYSICAL EXAMINATION: General appearance: Well appearing, alert, in no acute distress, well-hydrated, well nourished. Skin: Skin color, texture, turgor normal, no suspicious rashes or lesions Head: Normocephalic, no masses, lesions, tenderness or abnormalities Lungs: lungs clear to auscultation. No wheezing, rhonchi, rales Heart: RRR without murmur, gallop, or rubs. No ectopy Abdomen: Normal abdominal exam, Abdomen soft, non-tender. Bowel sounds normal. No masses, organomegaly Extremities: No deformities, skin discoloration, clubbing or cyanosis. Good capillary refill. One plus edema. ASSESSMENT/PLAN: 1. Chest pain, unspecified type - ICD9: 786.50, ICD10: R07.9 (primary diagnosis) - given increased edema. Pleuritic chest pain and weight gain, to Er for further eval. - ECG COMPLETE W INTERPRETATION 2. Coronary artery disease involving turtle mountain heart without angina pectoris, unspecified vessel or lesion type - ICD9: 414.01, ICD10: I25.1 - ASPIRIN 81 MG TABLET,DELAYED RELEASE - SPIRONOLACTONE 25 MG TABLET - FUROSEMIDE 40 MG TABLET - ENALAPRIL MALEATE 2.5 MG TABLET - CARVEDILOL 25 MG TABLET 3. Uncontrolled type 2 diabetes mellitus with diabetic neuropathy, without long-term current use of insulin (HCC) - ICD9: 250.62, 357.2, ICD10: E11.40, E11.65 - ALOGLIPTIN 25 MG TABLET 4. Anxiety - ICD9: 300.00, ICD10: F41.9 - SERTRALINE 50 MG TABLET 5. Restless leg syndrome - ICD9: 333.94, ICD10: G25.81 - PRAMIPEXOLE 0.75 MG TABLET 6. Essential hypertension, benign - ICD9: 401.1, ICD10: I10 - MAGNESIUM OXIDE 400 MG (241.3 MG MAGNESIUM) TABLET 7. Edema, unspecified type - ICD9: 782.3, ICD10: R60.9 8. SOB (shortness of breath) - ICD9: 786.05, ICD10: R06.0 Mello Ding MD Referring Provider: MELLO DING [[id number]] Allergies As of Date: 07/29/2018 Noted Allergy Reaction ADHESIVE TAPE (ROSINS) 03/27/2006 9 - Itching METFORMIN 07/22/2018 14 - Other: See Comments Comments: Caused arrhythmia issues SIMVASTATIN 11/04/2012 14 - Other: See Comments Comments: myalgia Date Reviewed: 07/29/2018 Reviewed by: Nu Rivero - Fully Assessed Reason for Visit: Recheck [92] Cmt: refills Medication Question [1478] Cmt: pt. asking why she is on 3 BP medications Edema [39] Cmt: both ankles x 2 weeks Reason For Visit History Recorded Primary Visit Diagnosis:Chest pain, unspecified type [R07.9] Other Visit Diagnoses:Coronary artery disease involving turtle mountain heart without angina pectoris, unspecified vessel or lesion type [I25.10] Uncontrolled type 2 diabetes mellitus with diabetic neuropathy, without long-term current use of insulin (HCC) [E11.40, E11.65] Anxiety [F41.9] Restless leg syndrome [G25.81] Essential hypertension, benign [I10] Edema, unspecified type [R60.9] SOB (shortness of breath) [R06.02] Order(s):aspirin, enteric coated (ECOTRIN LOW STRENGTH) 81 mg EC tabletTake 1 tablet by mouth once daily.Disp: 30 tabletRfl: 11 alogliptin (NESINA) 25 mg tabTake 1 tablet by mouth once daily.Disp: 30 tabletRfl: 11 oxybutynin ER (DITROPAN XL) 15 mg 24 hr Extended Rel TabTake 1 tablet by mouth once daily.Disp: 90 tabletRfl: 2 spironolactone (ALDACTONE) 25 mg tabletTake 1 tablet by mouth once daily.Disp: 30 tabletRfl: 11 furosemide (LASIX) 40 mg tabletTake 1 tablet by mouth once daily.Disp: 30 tabletRfl: 11 enalapril (VASOTEC) 2.5 mg tabletTake 1 tablet by mouth once daily.Disp: 90 tabletRfl: 3 sertraline (ZOLOFT) 50 mg tabletTake 1 tablet by mouth once daily. Take 1/2 tab once a day orally for one week then 1 tab once a dayDisp: 90 tabletRfl: 3 Pramipexole 0.75 mg tabletTake 1 tablet by mouth daily at bedtime.Disp: 30 tabletRfl: 5 atorvastatin (LIPITOR) 10 mg tabletTake 1 tablet by mouth once daily.Disp: 30 tabletRfl: 11 magnesium oxide (MAG-OX) 400 mg (241.3 mg magnesium) tabletTake 1 tablet by mouth twice daily.Disp: 60 tabletRfl: 11 carvedilol (COREG) 25 mg tabletTake 1 tablet by mouth twice daily.Disp: 60 tabletRfl: 11 ECG COMPLETE W INTERPRETATION [ECG01] Order #: [id number] FUTURE Prescriptions as of 07/29/2018 Sig: ASPIRIN 81 MG TABLET,DELAYED * Take 1 tablet by mouth once d* ALOGLIPTIN 25 MG TABLET Take 1 tablet by mouth once d* OXYBUTYNIN CHLORIDE ER 15 MG * Take 1 tablet by mouth once d* SPIRONOLACTONE 25 MG TABLET Take 1 tablet by mouth once d* FUROSEMIDE 40 MG TABLET Take 1 tablet by mouth once d* ENALAPRIL MALEATE 2.5 MG TABL* Take 1 tablet by mouth once d* SERTRALINE 50 MG TABLET Take 1 tablet by mouth once d* PRAMIPEXOLE 0.75 MG TABLET Take 1 tablet by mouth daily * ATORVASTATIN 10 MG TABLET Take 1 tablet by mouth once d* MAGNESIUM OXIDE 400 MG (241.3* Take 1 tablet by mouth twice * CARVEDILOL 25 MG TABLET Take 1 tablet by mouth twice * ERTUGLIFLOZIN 5 MG TABLET Take 5 mg by mouth once daily. FEXOFENADINE 180 MG TABLET Take 1 tablet by mouth once d* FLASH GLUCOSE SCANNING READER Use reader to check blood glu* FLASH GLUCOSE SENSOR KIT Change sensor every 14 days INSULIN GLARGINE (U-100) 100 * Inject 50 Units subcutaneousl* INSULIN LISPRO (U-100) 100 UN* Inject 15 Units subcutaneousl* PANTOPRAZOLE 40 MG TABLET,DEL* TAKE 1 TABLET BY MOUTH TWICE * DEXAMETHASONE 4 MG/ML INJECTI* 4 mg as needed (for physical * CETIRIZINE 10 MG TABLET Take 1 tablet by mouth once d* AZELASTINE 137 MCG (0.1 %) NA* Use 1-2 Sprays in each nostri* FLUTICASONE 50 MCG/ACTUATION * Use 2 Sprays in each nostril * BLOOD-GLUCOSE METER KIT 1 Each as needed. TRIAMCINOLONE ACETONIDE 0.1 %* APPLY TO AFFECTED AREA(S) ON * [employer]iva TechnologyUCH ULTRA TEST STRIPS USE TO TEST BLOOD SUGAR THREE* LANCETS Test blood sugar(s) 3 times d* BLOOD-GLUCOSE METER KIT 1 Each as needed. INSULIN SYRINGE U-100 WITH NE* Use 1 syringe for each dose 1* PEN NEEDLE, DIABETIC 31 GAUGE* Use one needle per dose. 1 pe* Problem List As Of Date 07/29/2018 Noted Resolved Pure hypercholesterolemia [E78.00] Diabetes mellitus (HCC) [E11.9] 08/16/2016 More... Essential hypertension, benign [I10] Unspecified disorder of joint [719.9] 11/23/2016 More... 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 Cardiomyopathy, nonischemic [I42.8] INVALID FOR* Abnormality of gait [R26.9] INVALID FOR* DM (diabetes mellitus), type 2, uncontrolled w/*INVALID FOR*12/21/2015 Chronic nausea [R11.0] INVALID FOR*09/01/2015 Ganglion cyst of right foot [M67.471] INVALID FOR* ICD (implantable cardioverter-defibrillator) in*INVALID FOR*08/16/2016 Biventricular ICD (implantable cardioverter-def*INVALID FOR* Uncontrolled type 2 diabetes mellitus with diab*INVALID FOR* More... 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 ALOGLIPTIN 25 MG TABLET 30 t* 11 07/29/2018 Route: ORAL Sig: Take 1 tablet by mouth once daily. OXYBUTYNIN CHLORIDE ER 15 MG TABLET,* 90 t* 2 07/29/2018 Route: ORAL Sig: Take 1 tablet by mouth once daily. SPIRONOLACTONE 25 MG TABLET 30 t* 11 07/29/2018 Route: ORAL Sig: Take 1 tablet by mouth once daily. FUROSEMIDE 40 MG TABLET 30 t* 11 07/29/2018 Route: ORAL Sig: Take 1 tablet by mouth once daily. ENALAPRIL MALEATE 2.5 MG TABLET 90 t* 3 07/29/2018 Route: ORAL Sig: Take 1 tablet by mouth once daily. SERTRALINE 50 MG TABLET 90 t* 3 07/29/2018 Route: ORAL Sig: Take 1 tablet by mouth once daily. Take 1/2 tab once a day orally for one week then 1 tab once a day PRAMIPEXOLE 0.75 MG TABLET 30 t* 5 07/29/2018 Route: ORAL Sig: Take 1 tablet by mouth daily at bedtime. ATORVASTATIN 10 MG TABLET 30 t* 11 07/29/2018 Route: ORAL Sig: Take 1 tablet by mouth once daily. MAGNESIUM OXIDE 400 MG (241.3 MG MAG* 60 t* 11 07/29/2018 Route: ORAL Sig: Take 1 tablet by mouth twice daily. CARVEDILOL 25 MG TABLET 60 t* 11 07/29/2018 Route: ORAL Sig: Take 1 tablet by mouth twice daily. Medications Discontinued During This Encounter aspirin, enteric coated (ECOTRIN LOW* 30 t* 11 11/15/2017 07/29/2018 Route: ORAL Sig: Take 1 tablet by mouth once daily. Disc: Reason for discontinue is not on file. alogliptin 25 mg tab 30 t* 11 11/15/2017 07/29/2018 Route: ORAL Sig: Take 1 tablet by mouth once daily. Disc: Reason for discontinue is not on file. oxybutynin ER (DITROPAN XL) 15 mg 24* 90 t* 2 01/30/2018 07/29/2018 Sig: TAKE 1 TABLET BY MOUTH DAILY Disc: Reason for discontinue is not on file. spironolactone (ALDACTONE) 25 mg tab* 30 t* 11 06/20/2018 07/29/2018 Cmt: Maximum Refills Reached Sig: TAKE 1 TABLET DAILY Disc: Reason for discontinue is not on file. furosemide (LASIX) 40 mg tablet 30 t* 11 06/20/2018 07/29/2018 Cmt: Maximum Refills Reached Sig: TAKE 1 TABLET DAILY Disc: Reason for discontinue is not on file. enalapril (VASOTEC) 2.5 mg tablet 90 t* 3 07/22/2018 07/29/2018 Route: ORAL Sig: Take 1 tablet by mouth once daily. Disc: Reason for discontinue is not on file. sertraline (ZOLOFT) 50 mg tablet 90 t* 3 04/28/2018 07/29/2018 Route: ORAL Sig: Take 1 tablet by mouth once daily. Take 1/2 tab once a day orally for one week then 1 tab once a day Disc: Reason for discontinue is not on file. Pramipexole 0.75 mg tablet 30 t* 5 05/26/2018 07/29/2018 Route: ORAL Sig: Take 1 tablet by mouth daily at bedtime. Disc: Reason for discontinue is not on file. atorvastatin (LIPITOR) 10 mg tablet 30 t* 11 06/20/2018 07/29/2018 Cmt: Maximum Refills Reached Sig: TAKE 1 TABLET DAILY Disc: Reason for discontinue is not on file. magnesium oxide (MAG-OX) 400 mg tabl* 60 t* 11 11/15/2017 07/29/2018 Route: ORAL Sig: Take 1 tablet by mouth twice daily. Disc: Reason for discontinue is not on file. carvedilol (COREG) 25 mg tablet 60 t* 11 06/20/2018 07/29/2018 Cmt: Maximum Refills Reached Sig: TAKE 1 TABLET TWICE A DAY Disc: Reason for discontinue is not on file. Encounter Status:Closed by MELLO DING MD on 07/29/18 INITAL EVALUATION (1) Observed: 07/23/2018 Status: F Source: [place] - PT 5:03 PM [facility] REPOSITORY [facility] Physical Therapy Health[address] [place] [address] / REHABILITATION SERVICES INITIAL EVALUATION MR#: [id number] Acct: [id number] Name: MICHELLE JULES Rep #: [id number] : 1965 53 From: Gretchen PAGAN Referring Dr.: JACEY Lowe Status: REG RCR Insurance: [facility] [employer]URANCE Patient's Visit Information MICHELLE JULES is a 53 year old F referred to Physical Therapy by Yesenia Lowe DPM with a diagnosis of B foot bursitis. Date of Evaluation: 07/22/18 Physical Therapist: LATASHA Heck - Visit Plan Frequency: 2x /Week Duration: 4 Weeks Plan: [place] is not covered. 2X/ week for 4 weeks for B ankle AROM, PROM, stretching, strengthening, with HEP. Also US to the arch of B feet. - Subjective Findings: Pt reports that Having issues with swelling on the bottom of feet. She is having pain over arch of B feet and on the lateral side of the foot. The swelling started about a year ago. wants her to have PT. Pt can feel her feet but they ar kind of numb in her toes and that has been there for about a year. She has fallen twice in the bathtub while she was trying to step out and her foot slide. She has some tingling in her feet. She can go up and down steps....some days she can and some days she can't cause it hurts to walk on her feet. Pt is going to have to have L knee surgery due to spurs and arthritis. She will have that as soon as she gets her sugar under control. - Pain R foot pain Pain Intensity (Out of 10): 4 L foot pain Pain Intensity (Out of 10): 4 - Objective R ankle AROM: -2 degrees from neutral and 43 degrees PF, 32 degrees INV, 9 degrees EV. L ankle AROM: 5 degrees and 43 degrees PF, 7 degrees EV and 21 degrees INV. Tight gastroc B. Girth measurements: R lat- med mal 24.7 and L 25.1, Figure 8 R 51 and L 50.7 and met heads R 22.5 and L 23.9 cm. Pt is able to heel and toe raise but pt definity has instability especially with heel raise. Gait: walks with shorter stride and decreased DF. . - Goals Goal 1:: I HEP Goal Time Frame: 4-6 Weeks Goal 2:: Increase B ankle DF 8 degrees DF B Goal Time Frame: 4-6 Weeks Goal 3:: Decrease B foot pain to 1/10 with ADL's Goal Time Frame: 4-6 Weeks - Rehabilitation Potential Rehabilitation Potential: Good - Anticipated Interventions Patient/Client Instruction: Educate patient on: Condition, Plan of Care For the Purpose of:: To decrease pain, To decrease swelling/inflammation, To increase ROM, To improve nutrient delivery to tissue, To improve muscle performance and motor function, To improve ability to perform ADL's, To increase tolerance to activity/condition/position, To improve gait and locomotor functions, To improve health of tissue, To decrease soft tissue restriction, To increase flexibility/ROM Therapeutic Exercise to Include: Strength training, Balance training, Flexibilty training, Gait and locomotor training, Passive ROM, Active ROM For the Purpose of:: To decrease pain, To decrease swelling/inflammation, To increase ROM, To improve nutrient delivery to tissue, To improve muscle performance and motor function, To increase tolerance to activity/condition/position, To improve ability of physical actions for home/community/work/leisure, To improve gait and locomotor functions, To improve health of tissue, To decrease soft tissue restriction, To increase flexibility/ROM, To improve balance Manual Therapy Techniques to Include: Passive ROM For the Purpose of:: To increase ROM, To decrease soft tissue restriction Ultrasound (thermal/non thermal): Yes For the Purpose of:: To decrease pain, To decrease swelling/inflammation, To improve nutrient delivery to tissue Thank you for the opportunity to evaluate your patient. For Medicare and Medicare HMO plans, please review the plan of care and approve it. It will need to be FAXED BACK to us at [phone] for Medicare purposes. For Medicare only, by signing this I certify the plan of care. Please let me know if there are questions or concerns regarding this plan of care. Physician Signature: Date: <Electronically signed by Gretchen Bledsoe MPT> 07/23/18 1703 CC: JACEY Lowe; Mello Ding MD Signed PROGRESS Observed: 07/22/2018 Status: COMPLETED Source: [place] 10:00 AM [facility] REPOSITORY HNO ID: [id number] Author: Vashti Valdes (Pharmacist) Service: (none) Author Type: Pharmacist Type: Progress Notes Filed: 07/22/2018 4:15 PM Note Text: Patient consents to pharmacy collaborative practice agreement. REASON FOR CONSULT: DM GOALS: A1c < 7% CONSULTING PROVIDER: Dr. Ding Date of Consult: 06/16/18 Michelle Jules is a 53 year old female was last seen in [facility] by PCP, Dr. Mello Ding MD on 02/15/18. Also follows with DANITZA Payne Endocrinology at [facility] Patient is presenting today for initial pharmacotherapy management appointment for DM. Presents with her mother, Krista Woodruff INTERIM HISTORY: Reports feeling well Would like CGM Follows with DANITZA payne q 3 mos, next 07/30 Past DM medications: Metformin - affected patient's heart rhythm Current DM Medications: Basaglar 50 units QPM Admelog 25 units TID meals - 1 hour before meals Alogliptin 25mg daily Repaglinide 4mg TID meals Current HTN Medications: Enalapril 2.5mg daily Carvedilol 25mg BID Spironolactone 25mg daily Furosemide 49mg daily Preventative Medications: ? On DARIUS/ARB: Yes ? On Statin: Yes ? On ASA: Yes ROS: ? Patient denies CP, SOB, HUGHES, blurred vision, dizziness or lightheadedness ? Patient denies symptoms of hypoglycemia (sweating, anxiety, palpitations, hunger, and tremor) ? Patient denies symptoms of hyperglycemia (polyuria, polydipsia, polyphagia) ? Patient denies potential medication adverse effects DIET/EXERCISE/SOCIAL Hx: 3 meals daily ? Beverages: 1 diet pop daily MEDICATIONS: ? Pill bottles are present. ? Adherence: denies missed doses. ? Pharmacy: [facility] ? Rx coverage: [facility] Medicaid ? Affordability: no issues ? Diabetes supplies: One Touch ? 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 Vitamin D Deficiency Family History of Colon Cancer Cardiomyopathy, Nonischemic (Hcc) Abnormality of Gait Ganglion Cyst of Right Foot Biventricular Icd (Implantable Cardioverter-Defibrillator) in Place Uncontrolled Type 2 Diabetes Mellitus With Diabetic Neuropathy, Without Long-Term Current Use of Insulin (Hcc) Restless Leg Syndrome Peroneal Tendinitis Pain in Joint, Ankle and Foot Nonallergic Rhinitis PAST MEDICAL HISTORY Diagnosis Date - Anxiety disorder in conditions classified elsewhere - Arthritis left knee with spur - Cardiomyopathy, nonischemic (HCC) 04/2013 - Degenerative joint disease involving multiple joints shoulders, right knee - Essential hypertension, benign - Family history of colon cancer 5y screening cycle - GERD (gastroesophageal reflux disease) - History of placement of internal cardiac defibrillator 09/03/2013 - Neuropathy (HCC) 02/09/2016 - Obesity, unspecified - Pure hypercholesterolemia - Restless leg syndrome 02/09/2016 - Snoring - Type II or unspecified type diabetes mellitus without mention of complication, not stated as uncontrolled - Vitamin D deficiency ALLERGIES Allergen Reactions - Adhesive Tape (Natty* Itching - Simvastatin Other: See Comments myalgia Medication List Medication Directions Comments Action/Plan alogliptin 25 mg tab Take 1 tablet by mouth once daily. Taking daily amoxicillin-clavulanic acid (AUGMENTIN) 875-125 mg per tablet Take 1 tablet by mouth twice daily. done D/C aspirin, enteric coated (ECOTRIN LOW STRENGTH) 81 mg EC tablet Take 1 tablet by mouth once daily. Taking daily atorvastatin (LIPITOR) 10 mg tablet TAKE 1 TABLET DAILY Taking daily azelastine (ASTELIN,ASTEPRO) 0.1% nasal spray Use 1-2 Sprays in each nostril twice daily as needed. Taking daily Blood-Glucose Meter (FREESTYLE SYSTEM KIT) monitoring kit 1 Each as needed. Blood-Glucose Meter (Jiva Technology[employer]CH ULTRA2) monitoring kit 1 Each as needed. carvedilol (COREG) 25 mg tablet TAKE 1 TABLET TWICE A DAY BID cetirizine (ZYRTEC) 10 mg tablet Take 1 tablet by mouth once daily as needed (for itching, sneezing or runny nose). PRN dexamethasone sodium phosphate (DECADRON) 4 mg/mL injection 4 mg as needed (for physical therapy). enalapril (VASOTEC) 2.5 mg tablet Take 1 tablet by mouth once daily. Ran out Refill today fexofenadine (JASVIR ALLERGY) 180 mg tablet Take 1 tablet by mouth once daily. Not taking D/C fluticasone (FLONASE) 50 mcg/actuation nasal spray Use 2 Sprays in each nostril once daily. Patient not taking: Reported on 06/17/2018 duplicate D/C fluticasone (FLONASE) 50 mcg/actuation nasal spray Use 2 Sprays in each nostril once daily. Taking furosemide (LASIX) 40 mg tablet TAKE 1 TABLET DAILY Taking daily insulin glargine (BASAGLAR KWIKPEN) 100 unit/mL (3 mL) inpn Inject 21 Units subcutaneously every evening. Taking 50 units, per BJ shook insulin lispro (ADMELOG SOLOSTAR U-100 INSULIN) 100 unit/mL inpn Inject subcutaneously three times daily before meals. Take 1 unit when blood sugar is above 200 or higher. BJ SHOOK 25 units TID meals insulin needles, DISPOSABLE, (PEN NEEDLE) 31 gauge x 5/16 ndle Use one needle per dose. 1 per day. Insulin Syringe-Needle U-100 (INSULIN SYRINGE) 1/2 mL 30 x 5/16 syrg Use 1 syringe for each dose 1/day Lancets lancets Test blood sugar(s) 3 times daily. loratadine (CLARITIN) 10 mg tablet Take 1 tablet by mouth once daily. Not taking D/C magnesium oxide (MAG-OX) 400 mg tablet Take 1 tablet by mouth twice daily. BID ONETOUCH ULTRA TEST test strip USE TO TEST BLOOD SUGAR THREE TIMES A DAY oxybutynin ER (DITROPAN XL) 15 mg 24 hr Extended Rel Tab TAKE 1 TABLET BY MOUTH DAILY Taking daily Discontinued: 07/17/2018 3:[address] (PROTONIX) 40 mg tablet TAKE 1 TABLET BY MOUTH TWICE DAILY BID Pramipexole 0.75 mg tablet Take 1 tablet by mouth daily at bedtime. QHS repaglinide (PRANDIN) 2 mg tablet Take 1-2 tablets each meal Patient taking differently: Take 1-2 tablets three times daily before meal 2 QAM, 2 afternoon, 2 evening, 2 at bedtime sertraline (ZOLOFT) 50 mg tablet Take 1 tablet by mouth once daily. Take 1/2 tab once a day orally for one week then 1 tab once a day Taking daily spironolactone (ALDACTONE) 25 mg tablet TAKE 1 TABLET DAILY Taking daily triamcinolone acetonide (KENALOG) 0.1 % ointment APPLY TO AFFECTED AREA(S) ON LEGS TWICE A DAY NEEDED *USE 2 WEEKS ON, 1 WEEK OFF *NOT FOR FACE, ARMPITS GLYCEMIC CONTROL: ? Glucometer present at visit: No ? SMBG?s: Date Fasting AM 2 hr PP Before Lunch 2 hr PP Before Dinner 2 hr PP Bedtime 07/22 218 7 249 346 6 250 5 160 323 383 4 193 233 233 270 3 275 346 2 198 334 1 191 326 319 07/14 311 266 30 242 298 254 29 328 202 471 28 285 295 376 27 260 238 251 26 307 339 364 ? Hypoglycemia: no Last 3 Encounter BP Readings: Date: BP: 06/17/2018 121/74 05/08/2018 120/68 04/01/2018 117/74 Wt: 102.5 kg (226 lb) BMI: 33.37 kg/(m2) LABS Lab Results Component Value Date HBA1C 9.4 07/21/2018 HBA1C 9.3 03/24/2018 HBA1C 8.0 01/14/2018 HBA1C 7.2 09/23/2017 CMP: Glucose 107 07/21/2018 BUN 14 07/21/2018 Creatinine 0.76 07/21/2018 Sodium 140 07/21/2018 Potassium 4.1 07/21/2018 Chloride 102 07/21/2018 CO2 26 07/21/2018 Protein, Total 7.8 07/21/2018 Albumin 4.4 07/21/2018 Calcium 9.5 07/21/2018 Alkaline Phosphatase 182 07/21/2018 Bilirubin, Total 0.2 07/21/2018 AST 18 07/21/2018 ALT 17 07/21/2018 Estimated Creatinine Clearance: 110.3 mL/min (based on SCr of 0.76 mg/dL). Last Lipid Panel Lab Results Component Value Date CHOL 147 07/21/2018 Lab Results Component Value Date HDL 38 07/21/2018 Lab Results Component Value Date LDL 63 07/21/2018 Lab Results Component Value Date TG 230 07/21/2018 Albumin/Creat Ratio (mg/g) Date Value 01/14/2018 Not calculated PHARMACOTHERAPY ASSESSMENT/PLAN: 1. Uncontrolled type 2 diabetes mellitus with diabetic neuropathy, without long-term current use of insulin ([facility]) - ICD9: 250.62, 357.2, ICD10: E11.40, E11.65 A1c goal < 7%, patient is not at goal (9.4% on 07/21). FBGs and PPBGs not at goal without hypoglycemia. Patient compliant with and tolerating current regimen. Discussed addition of GLP-1 vs SGLT-2 for CVD benefits, patient reports would like to avoid GLP-1 with thyroid issues (has toxic goiter). Willing to trial SGLT-2. 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 Will change timing of prandial insulin to right before meals, and decrease dose. Can continue alogliptin for now. Renal fxn and LFTs WNL and appropriate for continued therapy ? START empagliflozin 10mg daily (BMP in 1 month if approved by insurance) ? STOP repaglinide ? DECREASE Admelog from 25 to 15 units TID meals (change from 1 hour prior to 5 min prior to meals) ? CONTINUE Basaglar 50 units QPM ? Instructed patient to continue checking BGs 3x daily ? Sent prescription for Freestyle Marissa CGM Patient is scheduled to see PCP 07/29/18. Patient to return to clinic for PharmD f/u on 08/25. Patient verbalized understanding of instructions. Vashti Valdes, WillisD, BCPS CNOV Observed: 07/22/2018 Status: COMPLETED Source: [place] 10:00 AM [facility] REPOSITORY Office Visit (PHMEWO) JIM JULESRY Shayla ([id number]) 1965 F Date Time Provider Department 07/22/18 10:00 AM KEISHA (PHARMACIST)VASHTI During your visit today, we recorded the following information about you: NADER MARISCAL 07/22/2018 4:15 PM Signed Patient consents to pharmacy collaborative practice agreement. REASON FOR CONSULT: DM GOALS: A1c < 7% CONSULTING PROVIDER: Dr. Ding Date of Consult: 06/16/18 Michelle Shayla Jorge A is a 53 year old female was last seen in [facility] by PCP, Dr. Mello Ding MD on 02/15/18. Also follows with DANITZA Payne Endocrinology at [facility] Patient is presenting today for initial pharmacotherapy management appointment for DM. Presents with her mother, Krista Woodruff INTERIM HISTORY: Reports feeling well Would like CGM Follows with DANITZA payne q 3 mos, next 07/30 Past DM medications: Metformin - affected patient's heart rhythm Current DM Medications: Basaglar 50 units QPM Admelog 25 units TID meals - 1 hour before meals Alogliptin 25mg daily Repaglinide 4mg TID meals Current HTN Medications: Enalapril 2.5mg daily Carvedilol 25mg BID Spironolactone 25mg daily Furosemide 49mg daily Preventative Medications: ? On ADRIUS/ARB: Yes ? On Statin: Yes ? On ASA: Yes ROS: ? Patient denies CP, SOB, HUGHES, blurred vision, dizziness or lightheadedness ? Patient denies symptoms of hypoglycemia (sweating, anxiety, palpitations, hunger, and tremor) ? Patient denies symptoms of hyperglycemia (polyuria, polydipsia, polyphagia) ? Patient denies potential medication adverse effects DIET/EXERCISE/SOCIAL Hx: 3 meals daily ? Beverages: 1 diet pop daily MEDICATIONS: ? Pill bottles are present. ? Adherence: denies missed doses. ? Pharmacy: [facility] ? Rx coverage: [facility] Medicaid ? Affordability: no issues ? Diabetes supplies: One [facility] ? 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 Vitamin D Deficiency Family History of Colon Cancer Cardiomyopathy, Nonischemic ([facility]) Abnormality of Gait Ganglion Cyst of Right Foot Biventricular Icd (Implantable Cardioverter-Defibrillator) in Place Uncontrolled Type 2 Diabetes Mellitus With Diabetic Neuropathy, Without Long-Term Current Use of Insulin (Hcc) Restless Leg Syndrome Peroneal Tendinitis Pain in Joint, Ankle and Foot Nonallergic Rhinitis PAST MEDICAL HISTORY Diagnosis Date - Anxiety disorder in conditions classified elsewhere - Arthritis left knee with spur - Cardiomyopathy, nonischemic (HCC) 04/2013 - Degenerative joint disease involving multiple joints shoulders, right knee - Essential hypertension, benign - Family history of colon cancer 5y screening cycle - GERD (gastroesophageal reflux disease) - History of placement of internal cardiac defibrillator 09/03/2013 - Neuropathy (HCC) 02/09/2016 - Obesity, unspecified - Pure hypercholesterolemia - Restless leg syndrome 02/09/2016 - Snoring - Type II or unspecified type diabetes mellitus without mention of complication, not stated as uncontrolled - Vitamin D deficiency ALLERGIES Allergen Reactions - Adhesive Tape (Natty* Itching - Simvastatin Other: See Comments myalgia Medication List Medication Directions Comments Action/Plan alogliptin 25 mg tab Take 1 tablet by mouth once daily. Taking daily amoxicillin-clavulanic acid (AUGMENTIN) 875-125 mg per tablet Take 1 tablet by mouth twice daily. done D/C aspirin, enteric coated (ECOTRIN LOW STRENGTH) 81 mg EC tablet Take 1 tablet by mouth once daily. Taking daily atorvastatin (LIPITOR) 10 mg tablet TAKE 1 TABLET DAILY Taking daily azelastine (ASTELIN,ASTEPRO) 0.1% nasal spray Use 1-2 Sprays in each nostril twice daily as needed. Taking daily Blood-Glucose Meter (FREESTYLE SYSTEM KIT) monitoring kit 1 Each as needed. Blood-Glucose Meter (RIT TE[employer] LTDTOUCH ULTRA2) monitoring kit 1 Each as needed. carvedilol (COREG) 25 mg tablet TAKE 1 TABLET TWICE A DAY BID cetirizine (ZYRTEC) 10 mg tablet Take 1 tablet by mouth once daily as needed (for itching, sneezing or runny nose). PRN dexamethasone sodium phosphate (DECADRON) 4 mg/mL injection 4 mg as needed (for physical therapy). enalapril (VASOTEC) 2.5 mg tablet Take 1 tablet by mouth once daily. Ran out Refill today fexofenadine (JASVIR ALLERGY) 180 mg tablet Take 1 tablet by mouth once daily. Not taking D/C fluticasone (FLONASE) 50 mcg/actuation nasal spray Use 2 Sprays in each nostril once daily. Patient not taking: Reported on 06/17/2018 duplicate D/C fluticasone (FLONASE) 50 mcg/actuation nasal spray Use 2 Sprays in each nostril once daily. Taking furosemide (LASIX) 40 mg tablet TAKE 1 TABLET DAILY Taking daily insulin glargine (BASAGLAR PRASANNAIKPEN) 100 unit/mL (3 mL) inpn Inject 21 Units subcutaneously every evening. Taking 50 units, per DANITZA payne insulin lispro (ADMELOG SOLOSTAR U-100 INSULIN) 100 unit/mL inpn Inject subcutaneously three times daily before meals. Take 1 unit when blood sugar is above 200 or higher. DANITZA DAWSONOK 25 units TID meals insulin needles, DISPOSABLE, (PEN NEEDLE) 31 gauge x 5/16 ndle Use one needle per dose. 1 per day. Insulin Syringe-Needle U-100 (INSULIN SYRINGE) 1/2 mL 30 x 5/16 syrg Use 1 syringe for each dose 1/day Lancets lancets Test blood sugar(s) 3 times daily. loratadine (CLARITIN) 10 mg tablet Take 1 tablet by mouth once daily. Not taking D/C magnesium oxide (MAG-OX) 400 mg tablet Take 1 tablet by mouth twice daily. BID ONETOUCH ULTRA TEST test strip USE TO TEST BLOOD SUGAR THREE TIMES A DAY oxybutynin ER (DITROPAN XL) 15 mg 24 hr Extended Rel Tab TAKE 1 TABLET BY MOUTH DAILY Taking daily Discontinued: 07/17/2018 3:[address] (PROTONIX) 40 mg tablet TAKE 1 TABLET BY MOUTH TWICE DAILY BID Pramipexole 0.75 mg tablet Take 1 tablet by mouth daily at bedtime. [facility] repaglinide (PRANDIN) 2 mg tablet Take 1-2 tablets each meal Patient taking differently: Take 1-2 tablets three times daily before meal 2 QAM, 2 afternoon, 2 evening, 2 at bedtime sertraline (ZOLOFT) 50 mg tablet Take 1 tablet by mouth once daily. Take 1/2 tab once a day orally for one week then 1 tab once a day Taking daily spironolactone (ALDACTONE) 25 mg tablet TAKE 1 TABLET DAILY Taking daily triamcinolone acetonide (KENALOG) 0.1 % ointment APPLY TO AFFECTED AREA(S) ON LEGS TWICE A DAY NEEDED *USE 2 WEEKS ON, 1 WEEK OFF *NOT FOR FACE, ARMPITS GLYCEMIC CONTROL: ? Glucometer present at visit: No ? SMBG?s: Date Fasting AM 2 hr PP Before Lunch 2 hr PP Before Dinner 2 hr PP Bedtime 07/22 218 7 249 346 6 250 5 160 323 383 4 193 233 233 270 3 275 346 2 198 334 1 191 326 319 07/14 311 266 30 242 298 254 29 328 202 471 28 285 295 376 27 260 238 251 26 307 339 364 ? Hypoglycemia: no Last 3 Encounter BP Readings: Date: BP: 06/17/2018 121/74 05/08/2018 120/68 04/01/2018 117/74 Wt: 102.5 kg (226 lb) BMI: 33.37 kg/(m2) LABS Lab Results Component Value Date HBA1C 9.4 07/21/2018 HBA1C 9.3 03/24/2018 HBA1C 8.0 01/14/2018 HBA1C 7.2 09/23/2017 CMP: Glucose 107 07/21/2018 BUN 14 07/21/2018 Creatinine 0.76 07/21/2018 Sodium 140 07/21/2018 Potassium 4.1 07/21/2018 Chloride 102 07/21/2018 CO2 26 07/21/2018 Protein, Total 7.8 07/21/2018 Albumin 4.4 07/21/2018 Calcium 9.5 07/21/2018 Alkaline Phosphatase 182 07/21/2018 Bilirubin, Total 0.2 07/21/2018 AST 18 07/21/2018 ALT 17 07/21/2018 Estimated Creatinine Clearance: 110.3 mL/min (based on SCr of 0.76 mg/dL). Last Lipid Panel Lab Results Component Value Date CHOL 147 07/21/2018 Lab Results Component Value Date HDL 38 07/21/2018 Lab Results Component Value Date LDL 63 07/21/2018 Lab Results Component Value Date TG 230 07/21/2018 Albumin/Creat Ratio (mg/g) Date Value 01/14/2018 Not calculated PHARMACOTHERAPY ASSESSMENT/PLAN: 1. Uncontrolled type 2 diabetes mellitus with diabetic neuropathy, without long-term current use of insulin ([facility]) - ICD9: 250.62, 357.2, ICD10: E11.40, E11.65 A1c goal < 7%, patient is not at goal (9.4% on 07/21). FBGs and PPBGs not at goal without hypoglycemia. Patient compliant with and tolerating current regimen. Discussed addition of GLP-1 vs SGLT-2 for CVD benefits, patient reports would like to avoid GLP-1 with thyroid issues (has toxic goiter). Willing to trial SGLT-2. Will d/c repaglinide d/t unlikely benefit and prison risk of hypoglycemia with basal/bolus insulin. Will change timing of prandial insulin to right before meals, and decrease dose. Can continue alogliptin for now. Renal fxn and LFTs WNL and appropriate for continued therapy ? START empagliflozin 10mg daily (BMP in 1 month if approved by insurance) ? STOP repaglinide ? DECREASE Admelog from 25 to 15 units TID meals (change from 1 hour prior to 5 min prior to meals) ? CONTINUE Basaglar 50 units QPM ? Instructed patient to continue checking BGs 3x daily ? Sent prescription for TipHiveyle Marissa CGM Patient is scheduled to see PCP 07/29/18. Patient to return to clinic for PharmD f/u on 08/25. Patient verbalized understanding of instructions. Vashti Valdes PharmD, [facility] VASHTI VALDES PHARMACIST 07/22/2018 11:13 AM Addendum Admelog 15 units RIGHT BEFORE YOU EAT If Jardiance is approved, STOP the Prandin Let Vashti know if new machine - continuous glucose monitor - approved Vashti Valdes PharmD, [facility] [phone] Referring Provider: SELF [[id number]] Allergies As of Date: 07/22/2018 Noted Allergy Reaction ADHESIVE TAPE (ROSINS) 03/27/2006 9 - Itching METFORMIN 07/22/2018 14 - Other: See Comments Comments: Caused arrhythmia issues SIMVASTATIN 11/04/2012 14 - Other: See Comments Comments: myalgia Date Reviewed: 06/17/2018 Reviewed by: Justin Johnson - Fully Assessed Reason for Visit: Allied Health Visit [5] Cmt: DM initial Primary Visit Diagnosis:Uncontrolled type 2 diabetes mellitus with diabetic neuropathy, without long-term current use of insulin (HCC) [E11.40, E11.65] Order(s):enalapril (VASOTEC) 2.5 mg tabletTake 1 tablet by mouth once daily.Disp: 90 tabletRfl: 3 flash glucose scanning reader (FREESTYLE MARISSA 14 DAY READER) miscUse reader to check blood glucose (scan at least every 8 hours)Disp: 1 EachRfl: 0 flash glucose sensor (FREESTYLE MARISSA 14 DAY SENSOR) kitChange sensor every 14 daysDisp: 6 KitRfl: 3 insulin glargine (BASAGLAR KWIKPEN U-100 INSULIN) 100 unit/mL (3 mL) inpnInject 50 Units subcutaneously every evening.Disp: 5 PenRfl: 5 insulin lispro (ADMELOG SOLOSTAR U-100 INSULIN) 100 unit/mL inpnInject 15 Units subcutaneously three times daily before meals.Disp: 5 PenRfl: 5 empagliflozin (JARDIANCE) 10 mg tabletTake 1 tablet by mouth daily with breakfast.Disp: 30 tabletRfl: 1 BASIC METABOLIC PNL [SQBMP] Order #: [id number] FUTURE Prescriptions as of 07/22/2018 Sig: ENALAPRIL MALEATE 2.5 MG TABL* Take 1 tablet by mouth once d* FLASH GLUCOSE SCANNING READER Use reader to check blood glu* FLASH GLUCOSE SENSOR KIT Change sensor every 14 days INSULIN GLARGINE (U-100) 100 * Inject 50 Units subcutaneousl* INSULIN LISPRO (U-100) 100 UN* Inject 15 Units subcutaneousl* EMPAGLIFLOZIN 10 MG TABLET Take 1 tablet by mouth daily * PANTOPRAZOLE 40 MG TABLET,DEL* TAKE 1 TABLET BY MOUTH TWICE * CARVEDILOL 25 MG TABLET TAKE 1 TABLET TWICE A DAY SPIRONOLACTONE 25 MG TABLET TAKE 1 TABLET DAILY FUROSEMIDE 40 MG TABLET TAKE 1 TABLET DAILY ATORVASTATIN 10 MG TABLET TAKE 1 TABLET DAILY DEXAMETHASONE 4 MG/ML INJECTI* 4 mg as needed (for physical * PRAMIPEXOLE 0.75 MG TABLET Take 1 tablet by mouth daily * CETIRIZINE 10 MG TABLET Take 1 tablet by mouth once d* AZELASTINE 137 MCG (0.1 %) NA* Use 1-2 Sprays in each nostri* SERTRALINE 50 MG TABLET Take 1 tablet by mouth once d* FLUTICASONE 50 MCG/ACTUATION * Use 2 Sprays in each nostril * BLOOD-GLUCOSE METER KIT 1 Each as needed. OXYBUTYNIN CHLORIDE ER 15 MG * TAKE 1 TABLET BY MOUTH DAILY TRIAMCINOLONE ACETONIDE 0.1 %* APPLY TO AFFECTED AREA(S) ON * ASPIRIN 81 MG TABLET,DELAYED * Take 1 tablet by mouth once d* ALOGLIPTIN 25 MG TABLET Take 1 tablet by mouth once d* MAGNESIUM OXIDE 400 MG (241.3* Take 1 tablet by mouth twice * ONETOUCH ULTRA TEST STRIPS USE TO TEST BLOOD SUGAR THREE* LANCETS Test blood sugar(s) 3 times d* BLOOD-GLUCOSE METER KIT 1 Each as needed. INSULIN SYRINGE U-100 WITH NE* Use 1 syringe for each dose 1* PEN NEEDLE, DIABETIC 31 GAUGE* Use one needle per dose. 1 pe* Problem List As Of Date 07/22/2018 Noted Resolved Pure hypercholesterolemia [E78.00] Diabetes mellitus (HCC) [E11.9] 08/16/2016 More... Essential hypertension, benign [I10] Unspecified disorder of joint [719.9] 11/23/2016 More... 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 Cardiomyopathy, nonischemic [I42.8] INVALID FOR* Abnormality of gait [R26.9] INVALID FOR* DM (diabetes mellitus), type 2, uncontrolled w/*INVALID FOR*12/21/2015 Chronic nausea [R11.0] INVALID FOR*09/01/2015 Ganglion cyst of right foot [M67.471] INVALID FOR* ICD (implantable cardioverter-defibrillator) in*INVALID FOR*08/16/2016 Biventricular ICD (implantable cardioverter-def*INVALID FOR* Uncontrolled type 2 diabetes mellitus with diab*INVALID FOR* More... Neuropathy (HCC) [G62.9] INVALID FOR*08/16/2016 Restless leg syndrome [G25.81] INVALID FOR* Peroneal tendinitis [M76.70] INVALID FOR* Pain in joint, ankle and foot [M25.579] INVALID FOR* Nonallergic rhinitis [J31.0] INVALID FOR* Other instructions from your clinician: Admelog 15 units RIGHT BEFORE YOU EAT If Jardiance is approved, STOP the Prandin Let Vashti know if new machine - continuous glucose monitor - approved Vashti Valdes, PharmD, [facility] [phone] Prescriptions ordered this encounter Disp Refills Start End ENALAPRIL MALEATE 2.5 MG TABLET 90 t* 3 07/22/2018 Route: ORAL Sig: Take 1 tablet by mouth once daily. FLASH GLUCOSE SCANNING READER 1 Ea* 0 07/22/2018 Sig: Use reader to check blood glucose (scan at least every 8 hours) FLASH GLUCOSE SENSOR KIT 6 Kit 3 07/22/2018 Sig: Change sensor every 14 days INSULIN GLARGINE (U-100) 100 UNIT/ML* 5 Pen 5 07/22/2018 Route: SUBCUTANEOUS Sig: Inject 50 Units subcutaneously every evening. INSULIN LISPRO (U-100) 100 UNIT/ML S* 5 Pen 5 07/22/2018 Route: SUBCUTANEOUS Sig: Inject 15 Units subcutaneously three times daily before meals. EMPAGLIFLOZIN 10 MG TABLET 30 t* 1 07/22/2018 Route: ORAL Sig: Take 1 tablet by mouth daily with breakfast. Medications Discontinued During This Encounter enalapril (VASOTEC) 2.5 mg tablet 90 t* 3 07/23/2017 07/22/2018 Route: ORAL Sig: Take 1 tablet by mouth once daily. Disc: Reason for discontinue is not on file. repaglinide (PRANDIN) 2 mg tablet 180 * 11 12/21/2015 07/22/2018 Sig: Take 1-2 tablets each meal Patient taking differently: Take 1-2 tablets three times daily before meal Disc: Reason for discontinue is not on file. insulin glargine (BASAGLAR KWIKPEN) * 5 Pen 5 03/28/2017 07/22/2018 Route: SUBCUTANEOUS Sig: Inject 21 Units subcutaneously every evening. Disc: Reason for discontinue is not on file. insulin lispro (ADMELOG SOLOSTAR U-1* 07/22/2018 Class: Historical Med Route: SUBCUTANEOUS Sig: Inject subcutaneously three times daily before meals. Take 1 unit when blood sugar is above 200 or higher. DANITZA PAYNE Disc: Reason for discontinue is not on file. amoxicillin-clavulanic acid (AUGMENT* 20 t* 0 05/08/2018 07/22/2018 Route: ORAL Sig: Take 1 tablet by mouth twice daily. Disc: Course of therapy completed fexofenadine (JASVIR ALLERGY) 180 m* 30 t* 11 05/08/2018 07/22/2018 Route: ORAL Sig: Take 1 tablet by mouth once daily. Disc: Course of therapy completed fluticasone (FLONASE) 50 mcg/actuati* 1 Abdiel* 11 11/23/2016 07/22/2018 Route: EACH NOSTRIL Sig: Use 2 Sprays in each nostril once daily. Patient not taking: Reported on 06/17/2018 Disc: Duplicate Entry loratadine (CLARITIN) 10 mg tablet 30 t* 11 11/15/2017 07/22/2018 Route: ORAL Sig: Take 1 tablet by mouth once daily. Disc: Course of therapy completed Encounter Status:Closed by KEISHA (PHARMACIST)VASHTI on 07/22/18 LIPID PANEL, BASIC Collected: 07/21/2018 Status: F Source: [place] 11:16 AM [facility] REPOSITORY TYPE CODE TESTS RESULT OUT OF REFERENCE UNITS RANGE LAB CHOL <200 mg/dL Cholesterol 147 Result Comment: <200 mg/dL, Desirable 200-239 mg/dL, Borderline high >239 mg/dL, High LAB TRIGLY <150 mg/dL Triglyceride High 230 Result Comment: <150 mg/dL, Normal 150-199 mg/dL, Borderline high 200-499 mg/dL, High >499 mg/dL, Very high LAB HDL >39 mg/dL HDL-Cholesterol Low 38 Result Comment: 40-59 mg/dL, Acceptable >59 mg/dL, High: Negative risk factor for coronary heart disease <40 mg/dL, Low: Positive risk factor for coronary heart disease LAB LDL <100 mg/dL LDL-Cholesterol 63 Result Comment: <100 mg/dL, Optimal 100-129 mg/dL, Near optimal/above optimal 130-159 mg/dL, Borderline high 160-189 mg/dL, High >189 mg/dL, Very high Secondary prevention optimal LDL Cholesterol levels are recommended to be < 70 mg/dL LAB NONHDL <130 mg/dL Non HDL Cholesterol 109 Result Comment: <130 mg/dL, Optimal 130-159 mg/dL, Near optimal/above optimal 160-189 mg/dL, Borderline high 190-219 mg/dL, High >219 mg/dL, Very high Secondary prevention optimal non HDL Cholesterol levels are recommended to be < 100 mg/dL LAB FT hrs Fasting Time 16 LAB VLDL <30 mg/dL High VLDL Cholesterol 46 LAB TCHDL <5.10 TC:HDL Ratio 3.87 LAB LDLHDL <2.54 LDL:HDL Ratio 1.66 Result Comment: Reference: 1. National Cholesterol Education Program ATP III Guideline At-A-Glance Quick Desk Reference: National Heart, Lung, and Blood [place]. National Institutes of Health. 2001: NIH Publication No. 01-3305. 2. An International Atherosclerosis Society position paper: global recommendations for the management of dyslipidemia: executive summary, Atherosclerosis. 2014: 232(2):410-413. Performed By: #### LIPB #### [facility] [address] [place], [place] [address] COMP METABOLIC PANEL Collected: 07/21/2018 Status: F Source: [place] 11:16 AM [facility] REPOSITORY TYPE CODE TESTS RESULT OUT OF REFERENCE UNITS RANGE LAB TP 6.3-8.0 g/dL Protein, Total 7.8 LAB ALB 3.9-4.9 g/dL Albumin 4.4 LAB CA 8.5-10.2 mg/dL Calcium, Total 9.5 LAB TBIL 0.2-1.3 mg/dL Bilirubin, Total 0.2 LAB ALKP 34-123 U/L Alkaline High Phosphatase 182 LAB AST 13-35 U/L AST 18 LAB GLU 74-99 mg/dL Glucose High 107 Result Comment: The [place] Diabetes Association (ADA) provides guidance for cutoff values for fasting glucose and random glucose. The ADA defines fasting as no caloric intake for at least 8 hours. Fas ting plasma glucose results between 100 to 125 mg/dL indicate increased risk for diabetes (prediabetes). Fasting plasma glucose results greater than or equal to 126 mg/dL meet the criteria for diagnosis of diabetes. In the absence of unequivocal hyperglycemia, results should be confirmed by repeat testing. In a patient with classic symptoms of hyperglycemia or hyperglycemic crisis, random plasma glucose results greater than or equal to 200 mg/dL meet the criteria for diagnosis of diabetes. Reference: Standards of Medical Care in Diabetes 2016, [place] Diabetes Association. Diabetes Care. 2016.39(Suppl 1). LAB BUN 7-21 mg/dL BUN 14 LAB CRET 0.58-0.96 mg/dL Creatinine 0.76 LAB NA 136-144 mmol/L Sodium 140 LAB K 3.7-5.1 mmol/L Potassium 4.1 LAB CL 97-105 mmol/L Chloride 102 LAB CO2 22-30 mmol/L CO2 26 LAB AGAP 9-18 mmol/L Anion Gap 12 LAB ALT 7-38 U/L ALT 17 LAB GFRAA eGFR- Amer. >60 LAB GFRNAA . eGFR-All Other Races >60 Result Comment: eGFR (Estimated GFR) Units of measure: mL/min/1.73 meters squared eGFR is derived from the reexpressed MDRD Study equation using the following parameters: serum creatinine, age, gender and race. The creatinine assay has been calibrated to be traceable to IDMS. An eGFR <60 mL/min/1.73m2 for >3 months is consistent with chronic kidney disease. Refer to KDOQI guidelines for clinical interpretation. In patients with unstable renal function, e.g. those with acute kidney injury, the eGFR may not accurately reflect actual GFR. Performed By: #### CMP, HBA1C #### [facility] [address] [id number] HEMOGLOBIN A1C Collected: 07/21/2018 Status: F Source: [place] 11:16 AM [facility] REPOSITORY TYPE CODE TESTS RESULT OUT OF REFERENCE UNITS RANGE LAB HGBA1C 4.3-5.6 % High Hemoglobin A1c 9.4 Result Comment: [place] Diabetes Association guidelines indicate that patients with HgbA1c in the range 5.7-6.4% are at increased risk for development of diabetes, and intervention by lifestyle modification may be beneficial. HgbA1c greater or equal to 6.5% is considered diagnostic of diabetes. LAB HBA0 mg/dL Est. Average Glucose 223 Result Comment: eAG: (Estimated average glucose) is a calculated value from HgbA1c and is sales representative womens health of the average blood glucose level in the last 2-3 month period. Performed By: #### CMP, HBA1C #### [facility] [address] [address] ALGN LATEX IGE Collected: 07/21/2018 Status: F Source: [place] 11:16 AM [facility] REPOSITORY TYPE CODE TESTS RESULT OUT OF REFERENCE UNITS RANGE LAB LATX <0.35 KU/L Latex IgE <0.35 LAB LATXCL 0 Latex 0 Class Performed By: #### LATEXA #### [facility] [address] CNPTOUTREACH Observed: 07/14/2018 Status: COMPLETED Source: [place] 12:00 [facility] REPOSITORY Patient Outreach (INT[facility]) MICHELLE JULES ([id number]) 1965 F Date Time Provider Department 07/14/18 [facility] During your visit today, we recorded the following information about you: Allergies As of Date: 07/14/2018 Noted Allergy Reaction ADHESIVE TAPE (ROSINS) 03/27/2006 9 - Itching SIMVASTATIN 11/04/2012 14 - Other: See Comments Comments: myalgia Date Reviewed: 06/17/2018 Reviewed by: Justin Johnson - Fully Assessed Visit Diagnosis:Medication management [Z79.899] Order(s):LIPID PANEL BASIC [SQLIPB] Order #: [id number] FUTURE Prescriptions as of 07/14/2018 Sig: CARVEDILOL 25 MG TABLET TAKE 1 TABLET TWICE A DAY SPIRONOLACTONE 25 MG TABLET TAKE 1 TABLET DAILY FUROSEMIDE 40 MG TABLET TAKE 1 TABLET DAILY ATORVASTATIN 10 MG TABLET TAKE 1 TABLET DAILY DEXAMETHASONE 4 MG/ML INJECTI* 4 mg as needed (for physical * PRAMIPEXOLE 0.75 MG TABLET Take 1 tablet by mouth daily * CETIRIZINE 10 MG TABLET Take 1 tablet by mouth once d* AZELASTINE 137 MCG (0.1 %) NA* Use 1-2 Sprays in each nostri* X AMOXICILLIN 875 MG-POTASSIUM * Take 1 tablet by mouth twice * X FEXOFENADINE 180 MG TABLET Take 1 tablet by mouth once d* SERTRALINE 50 MG TABLET Take 1 tablet by mouth once d* FLUTICASONE 50 MCG/ACTUATION * Use 2 Sprays in each nostril * X PANTOPRAZOLE 40 MG TABLET,DEL* TAKE 1 TABLET BY MOUTH TWICE * BLOOD-GLUCOSE METER KIT 1 Each as needed. X INSULIN LISPRO (U-100) 100 UN* Inject subcutaneously three t* OXYBUTYNIN CHLORIDE ER 15 MG * TAKE 1 TABLET BY MOUTH DAILY TRIAMCINOLONE ACETONIDE 0.1 %* APPLY TO AFFECTED AREA(S) ON * ASPIRIN 81 MG TABLET,DELAYED * Take 1 tablet by mouth once d* ALOGLIPTIN 25 MG TABLET Take 1 tablet by mouth once d* MAGNESIUM OXIDE 400 MG (241.3* Take 1 tablet by mouth twice * X LORATADINE 10 MG TABLET Take 1 tablet by mouth once d* X ENALAPRIL MALEATE 2.5 MG TABL* Take 1 tablet by mouth once d* X INSULIN GLARGINE (U-100) 100 * Inject 21 Units subcutaneousl* X FLUTICASONE 50 MCG/ACTUATION * Use 2 Sprays in each nostril * Patient not taking: Reported on 06/17/2018 ONETOUCH ULTRA TEST STRIPS USE TO TEST BLOOD SUGAR THREE* LANCETS Test blood sugar(s) 3 times d* BLOOD-GLUCOSE METER KIT 1 Each as needed. X REPAGLINIDE 2 MG TABLET Take 1-2 tablets each meal Patient taking differently: Take 1-2 tablets three times * INSULIN SYRINGE U-100 WITH NE* Use 1 syringe for each dose 1* PEN NEEDLE, DIABETIC 31 GAUGE* Use one needle per dose. 1 pe* Problem List As Of Date 07/14/2018 Noted Resolved Pure hypercholesterolemia [E78.00] Diabetes mellitus (HCC) [E11.9] 08/16/2016 More... Essential hypertension, benign [I10] Unspecified disorder of joint [719.9] 11/23/2016 More... 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 Cardiomyopathy, nonischemic [I42.8] INVALID FOR* Abnormality of gait [R26.9] INVALID FOR* DM (diabetes mellitus), type 2, uncontrolled w/*INVALID FOR*12/21/2015 Chronic nausea [R11.0] INVALID FOR*09/01/2015 Ganglion cyst of right foot [M67.471] INVALID FOR* ICD (implantable cardioverter-defibrillator) in*INVALID FOR*08/16/2016 Biventricular ICD (implantable cardioverter-def*INVALID FOR* Uncontrolled type 2 diabetes mellitus with diab*INVALID FOR* More... 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 Cardiovascular Services [address] [place] [address] 12 Lead EKG 06/22/18 1713 MR#: [id number] Acct: [id number] Name: MICHELLE JULES Rep #: [id number] : 1965 52 From: Jean Trujillo MD Attending Dr: Status: DEP ER Ordering Dr: Haider Valdes DO Date: 06/22/18 Location: ED Sex: F C Admitted: Test Reason : DISRHYTHMIA Blood Pressure : / mmHG Vent. Rate : 068 BPM Atrial Rate : 068 BPM P-R Int : 000 ms QRS Dur : 152 ms QT Int : 472 ms P-R-T Axes : 056 -14 098 degrees QTc Int : 501 ms Ventricular-paced rhythm Biventricular pacemaker detected Abnormal ECG Confirmed by JEAN TRUJILLO MD ([id number]), editor magazine RADHA BETTS ([id number]) on 06/24/2018 8:58:00 AM Referred By: Mc Betts Confirmed By:JEAN TRUJILLO MD 06/24/18 0858 Date Jean Trujillo MD CC: Haider Valdes DO; Mello Ding MD Signed CNPN Observed: 06/24/2018 Status: COMPLETED Source: [place] 12:00 AM [facility] REPOSITORY Telephone (PODIMM) MICHELLE JULES ([id number]) 1965 F Date Time Provider Department 06/24/18 YESENIA LOWEM During your visit today, we recorded the following information about you: Braulio Benson 06/24/2018 8:30 AM Signed Ma: Patient calling back to see if her insurance approved her steroid injection. She would like to do foot therapy through [facility] in [place]. Please fax referral and approval over to them. Please call patient back regarding steroid injection. : Patient was in ER on Saturday night regarding her feet swelling. She went to [place] ER regarding this. they didn't find anything, took blood work, and xrays. Did chest xray and ekg. Really didn't say what it was. She's had a little bit of improvement. Both feet were swollen and decreased sensation. Left foot she can't feel anything, right foot has some sensation. Patient has diabetes and states you told her she had early neuropathy. Patient has been checking feet for wounds. Denies color changes to feet. they feel really tight. Been elevating and staying off them as much as possible. This decreases swelling but comes right back. Georgette Nicholson Ma 06/24/2018 2:18 PM Signed Spoke to patient, advised her that the injection goes through Medical, not pharmacy. Verified with [facility] that they do have the injection in office for the patient. Orders faxed to [facility] in [place] at [phone] PH: Braulio Benson 06/25/2018 8:10 AM Signed Yesenia Lowe ?You 2 hours ago (6:04 AM) This patient called this weekend regarding swelling to her b/l lower extremities. ?Can we check on her and make sure that she does not need a follow up appt from this visit? Thanks. (Routing comment) Braulio Benson 06/25/2018 8:11 AM Signed , Please see below. I discussed this with patient yesterday and routed it to your pool thanks Georgette Nicholson Ma 06/26/2018 8:43 AM Signed Per message from Dr. Lowe, please add patient to the cancellation list. Yesenia Lowe ?You 11 hours ago (9:08 PM) Cancellation list for this patient. (Routing comment) Red Mcclellan 06/26/2018 9:46 AM Signed Patient has been added to the wait list. Allergies As of Date: 06/24/2018 Noted Allergy Reaction ADHESIVE TAPE (ROSINS) 03/27/2006 9 - Itching SIMVASTATIN 11/04/2012 14 - Other: See Comments Comments: myalgia Date Reviewed: 06/17/2018 Reviewed by: Justin Johnson - Fully Assessed Reason for Visit: Nurse Triage Call [[id number]] Prescriptions as of 06/24/2018 Sig: ALOGLIPTIN 25 MG TABLET Take 1 tablet by mouth once d* AMOXICILLIN 875 MG-POTASSIUM * Take 1 tablet by mouth twice * ASPIRIN 81 MG TABLET,DELAYED * Take 1 tablet by mouth once d* ATORVASTATIN 10 MG TABLET TAKE 1 TABLET DAILY AZELASTINE 137 MCG (0.1 %) NA* Use 1-2 Sprays in each nostri* BLOOD-GLUCOSE METER KIT 1 Each as needed. BLOOD-GLUCOSE METER KIT 1 Each as needed. CARVEDILOL 25 MG TABLET TAKE 1 TABLET TWICE A DAY CETIRIZINE 10 MG TABLET Take 1 tablet by mouth once d* DEXAMETHASONE 4 MG/ML INJECTI* 4 mg as needed (for physical * ENALAPRIL MALEATE 2.5 MG TABL* Take 1 tablet by mouth once d* FEXOFENADINE 180 MG TABLET Take 1 tablet by mouth once d* FLUTICASONE 50 MCG/ACTUATION * Use 2 Sprays in each nostril * Patient not taking: Reported on 06/17/2018 FLUTICASONE 50 MCG/ACTUATION * Use 2 Sprays in each nostril * FUROSEMIDE 40 MG TABLET TAKE 1 TABLET DAILY INSULIN GLARGINE (U-100) 100 * Inject 21 Units subcutaneousl* INSULIN LISPRO (U-100) 100 UN* Inject subcutaneously three t* PEN NEEDLE, DIABETIC 31 GAUGE* Use one needle per dose. 1 pe* INSULIN SYRINGE U-100 WITH NE* Use 1 syringe for each dose 1* LANCETS Test blood sugar(s) 3 times d* LORATADINE 10 MG TABLET Take 1 tablet by mouth once d* MAGNESIUM OXIDE 400 MG (241.3* Take 1 tablet by mouth twice * ONETOUCH ULTRA TEST STRIPS USE TO TEST BLOOD SUGAR THREE* OXYBUTYNIN CHLORIDE ER 15 MG * TAKE 1 TABLET BY MOUTH DAILY PANTOPRAZOLE 40 MG TABLET,DEL* TAKE 1 TABLET BY MOUTH TWICE * PRAMIPEXOLE 0.75 MG TABLET Take 1 tablet by mouth daily * REPAGLINIDE 2 MG TABLET Take 1-2 tablets each meal Patient taking differently: Take 1-2 tablets three times * SERTRALINE 50 MG TABLET Take 1 tablet by mouth once d* SPIRONOLACTONE 25 MG TABLET TAKE 1 TABLET DAILY TRIAMCINOLONE ACETONIDE 0.1 %* APPLY TO AFFECTED AREA(S) ON * Problem List As Of Date 06/24/2018 Noted Resolved Pure hypercholesterolemia [E78.00] Diabetes mellitus (HCC) [E11.9] 08/16/2016 More... Essential hypertension, benign [I10] Unspecified disorder of joint [719.9] 11/23/2016 More... 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 Cardiomyopathy, nonischemic [I42.8] INVALID FOR* Abnormality of gait [R26.9] INVALID FOR* DM (diabetes mellitus), type 2, uncontrolled w/*INVALID FOR*12/21/2015 Chronic nausea [R11.0] INVALID FOR*09/01/2015 Ganglion cyst of right foot [M67.471] INVALID FOR* ICD (implantable cardioverter-defibrillator) in*INVALID FOR*08/16/2016 Biventricular ICD (implantable cardioverter-def*INVALID FOR* Uncontrolled type 2 diabetes mellitus with diab*INVALID FOR* More... 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 Medical Records Department [address] [place] [address] Emergency Department Summary 06/22/18 1906 MR#: [id number] Acct: [id number] Name: MICHELLE JULES Rep #: [id number] : 1965 52 From: Haider Valdes DO PCP: Mello Ding MD Status: REG ER - ER Visit Summary Date of Service: 06/22/18 Chief Complaint: Lower extremity edema History of Present Illness: The patient is a 52 F who presents with lower extremity edema that has been getting worse since yesterday. Patient states her swelling is localized to her feet bilaterally. Patient admits to some tingling over the left foot. Patient admits to some slight dyspnea and brief episodes of chest pain. Patient states nothing seems to make it better or worse. Patient denies any nausea or vomiting. Patient denies any dysuria or hematuria. Patient does admit to some chronic back pain that is mild. Patient denies any calf pain. Physical Examination: Vital signs are stable. Patient is afebrile. Patient is in no acute distress. Oral mucosa is pink and moist. Neck is supple. Trachea is midline. No JVD noted. Heart was regular rate and rhythm. Lungs are clear and equal bilaterally. There is good respiratory effort noted. Abdomen is soft. Bowel sounds are normal. Extremities are intact x4. There is trace edema in the feet bilaterally. There is no calf tenderness or edema noted. Cranial nerves II through XII are intact. There is slight decreased sensation to light touch in the left foot. Strength is 5/5 bilaterally upper and lower extremities. Deep tendon reflexes are 2+/4 bilaterally. Remaining physical exam is within normal limits. Test Results: PA and lateral chest x-ray does not show any evidence of congestive heart failure. EKG showed a paced rhythm with a rate of 68. There are no acute ST or T wave changes. CBC shows a mild anemia with a hemoglobin of 10.7 and hematocrit 34.8. These are stable compared to previous results. Basic metabolic profile showed a creatinine of 1.03 and a glucose of 209. BNP was normal at 36.8. Emergency Department Course and Treatment: Patient was instructed to elevate her lower extremities. Patient was instructed to follow-up with her primary care physician in 5-7 days. Patient was instructed to return if worse in any way. Patient understood and was agreeable with the plan. All questions were answered. Disposition: Discharge home Impression: Peripheral edema This note was generated with [employer] dictation software. It may contain incorrect words, spelling, and punctuation that were not noted in review of the chart prior to signing ED Disposition - Plan for ED Patient: Disposition: Home or Assisted Living Chief Complaint: Edema Diagnosis: Peripheral edema Instructions: ED Leg Swelling Bilateral Referrals: Mello Ding MD [Primary Care Provider] - What to do if you have Problems For any increased pain, shortness of breath, bleeding, nausea or vomiting, chest pain, or any unexpected problems, contact your Primary Care Provider. Call [facility] ([phone]) or report to the closest Emergency Room. Call 911 if necessary. 06/22/181911 <Electronically signed by Haider Valdes DO> Date Haider Valdes DO Cosigner Signature (If Indicated): Date CC: Mello Ding MD CBC W/DIFF, AUTOMATED Collected: 06/22/2018 Status: F Source: [place] 5:26 PM [facility] REPOSITORY TYPE CODE TESTS RESULT OUT OF RANGE REFERENCE UNITS LAB L100.1000 4.4-11.0 K/mm3 Normal WBC 7.1 LAB L100.1200 4.2-5.4 M/mm3 Normal RBC 4.21 LAB L100.1300 12.0-15.0 g/dl Low HGB 10.7 LAB L100.1400 37-47 % Low HCT 34.8 LAB L100.1500 81-99 fL Normal MCV 82.7 LAB L100.1600 27.0-32.0 pg Low MCH 25.4 LAB L100.1700 32-36 g/gl Low MCHC 30.7 LAB L100.1810 11.6-14.6 % High RDW CV 15.8 LAB L100.1820 35.1-43.9 fl High RDW SD 47.8 LAB L100.1900 150-450 K/mm3 Normal PLT 192 LAB L100.2000 6.2-12.0 fl Normal MPV 9.6 LAB L100.2100 47-70 % Normal NEUT% 66.7 LAB L100.2200 19-41 % Normal LY% 22.6 LAB L100.2300 0-10 % Normal MONO% 8.3 LAB L100.2400 0-5 % Normal EO% 2.0 LAB L100.2500 0-1 % Normal BASO% 0.3 LAB L100.2550 0.0-0.9 % Normal IM GRAN % 0.100 Result Comment: IG% - Immature Granulocytes (promyelocytes, myelocytes and metamyelocytes) > 1% indicates that a LEFT SHIFT is Present. LAB L100.2620 2.0-7.7 X10 3/uL Normal Absolute Neut 4.8 LAB L100.2720 0.83-4.51 X10 3/ul Normal Absolute Lymph 1.61 Performed By: #### L100.0100 #### [facility] [address] [place], [address] BASIC METABOLIC Collected: 06/22/2018 Status: F Source: [place] PROFILE (BMP) 5:26 PM [facility] REPOSITORY TYPE CODE TESTS RESULT OUT OF RANGE REFERENCE UNITS LAB L501.0100 74-106 mg/dL High GLU 209 Result Comment: Glucose result greater than or equal to 200 mg/dL suggests DIABETES MELLITUS per A.D.A. criteria. Please note revised GLUCOSE reference range effective 2017. LAB L501.1000 7-18 mg/dL Normal BUN 12 LAB L501.1100 0.55-1.02 mg/dL High CREAT,SERUM 1.03 Result Comment: The validity of the calculated GFR AND GFRAA in patients over 70 years has not been determined. Clinical correlation is essential. LAB L501.1110 >60 mL/min Normal EST GFR 60 Result Comment: Non- GFR Calc LAB L501.1115 >60 mL/min Normal EST GFR - AA 72 Result Comment: GFR Calc LAB L501.1255 ml/min Normal Estimated CRCL 67.53 LAB L501.1300 10-20 RATIO Normal BUN/CRE 11.7 LAB L501.2200 8.5-10 mg/dL Normal .1 CA 9.0 LAB L501.5300 136-14 mmol/L Normal 5 NA 140 LAB L501.5600 3.5-5. mmol/L Normal 1 K 3.9 LAB L501.5900 98-107 mmol/L Normal CL 102 LAB L501.6100 21.0-3 mmol/L Normal 2.0 CO2 29.0 LAB L501.6200 5-15 Normal GAP 9 Performed By: #### L500.2500 #### [facility] [address] [place], [address] BNP,B-TYPE NATRIURETIC Collected: 06/22/2018 Status: F Source: [place] PEPTIDE 5:26 PM [facility] REPOSITORY TYPE CODE TESTS RESULT OUT OF RANGE REFERENCE UNITS LAB L503.6620 0-100 pg/mL Normal B-TYPE 36.8 NEDRA PEP Performed By: #### L503.6620 #### [facility] [address] [facility] [place], [address] CHEST PA AND LATERAL Observed: 06/22/2018 Status: F Source: [place] 5:05 PM [facility] REPOSITORY [facility] Services [address] [place] [address] Chest PA and Lateral MR#: [id number] Acct: [id number] Name: MICHELLE JULES Rep #: [id number] : 1965 F 52 From: Adryan Shipman MD PCP: Mello Ding MD Status: REG ER Study: Chest PA and Lateral Date of Exam: 06/22/18 Exam# [id number] Ordering Dr: Haider Valdes DO STUDY: X-RAY CHEST REASON FOR EXAM: Female, 52 years old. Shortness of breath, dyspnea, cough TECHNIQUE: PA and lateral views of the chest. COMPARISON: 11/07/2017 FINDINGS: Three lead cardiac conduction device is seen via the left subclavian vein with lead tips projecting over the right atrium and right ventricle, respectively, with left atrial lead projecting over the left atrium/posterior cardiac border. The lungs are clear and expanded. There is no demonstrated pleural abnormality. Normal size heart. Normal mediastinum and remy. Normal visualized pulmonary arteries. Normal visualized aortic arch and descending thoracic aorta. Normal visualized thoracic spine. Normal visualized ribs, clavicles, and shoulders. There is no demonstrated abnormality of the visualized soft tissue structures of the upper abdomen. RAD/Chest PA and Lateral IMPRESSION: Stable, nonacute x-ray examination of the chest. Electronically Signed: Adryan Shipman MD at 18:40 EST , Service support , CC: Haider Valdes DO; Mello Ding MD Quality Assurance Supervisor Trim: Signed PROGRESS Observed: 06/17/2018 Status: COMPLETED Source: [place] 2:55 PM [facility] REPOSITORY O ID: [id number] Author: Justin Johnson Service: (none) Author Type: Physician Type: Progress Notes Filed: 06/17/2018 5:24 PM Note Text: Michelle Thomas is a 52 year old female with a history of nonallergic rhinitis, cough, GERD and hiatal hernia who presents for a follow-up visit. LUL was May 08, 2018. A 10 day course of Augmentin and Astelin were prescribed at that time. Her nasal symptoms have improved somewhat since her last visit. Still notes intermittent nasal congestion. Using fluticasone nasal spray and Astelin once daily only as twice daily use resulted in epistaxis. Intermittent headaches involving the temporal region bilaterally. No facial pressure. Denies cough. Denies postnasal drip. Continues to take Protonix BID with good control of her GERD sxs. To have knee surgery in mid-May (From initial visit on 04/01/18: Michelle Thomas is a 52 year old female who has symptoms of nasal congestion. Also with intermittent itchy eyes, clear rhinorrhea, sneezing, postnasal drip. Associated symptoms include cough . These symptoms are perennial with seasonal exacerbation in the summer. he patient has been suffering from these symptoms for several year(s). The patient has tried claritin with minimal relief of symptoms. Uses flonase as needed only. Triggers of her sxs include grass pollen and hay. She was on subcutaneous allergy immunotherapy several years ago with improvement in her symptoms. Denies systemic reactions due to immunotherapy. Of note, she is on carvedilol and has an implanted defibrillator in place due to a history of cardiomyopathy. She also complains of cough which is worse at night. This has been present for 2 months. She takes enalapril but has been on this medication since 2002. Denies a recent change in dose. The cough awakens her from sleep every night. She has intermittent daytime cough as well. Denies significant wheezing, chest tightness or shortness of breath. Denies a prior history of asthma. She has never used short acting beta agonists or other asthma medications. Denies a history of recurrent or chronic rhinosinusitis, nasal polyposis or nasal trauma. No prior imaging of the sinuses. No prior nasal or sinus surgery. 2 months ago, she developed vomiting and diarrhea shortly after ingesting oysters. No other symptoms. Denies subsequent ingestion of shellfish and mollusks. She takes Protonix 40 mg twice daily for GERD and hiatal hernia. EGD was completed in 2015. She complains of developing an itchy rash associated with use of latex gloves and Band-Aids. Denies complications during prior medical or dental procedures. 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 Denies symptoms with ingestion of avocado, banana, chestnut and kiwi. REVIEW OF SYSTEMS: Negative for fevers, chills, night sweats and unintentional weight loss. Negative for skin rash and skin lesions ROS negative except for those listed above. PAST MEDICAL HISTORY Diagnosis Date - Anxiety disorder in conditions classified elsewhere - Arthritis left knee with spur - Cardiomyopathy, nonischemic (HCC) 04/2013 - Degenerative joint disease involving multiple joints shoulders, right knee - Essential hypertension, benign - Family history of colon cancer 5y screening cycle - GERD (gastroesophageal reflux disease) - History of placement of internal cardiac defibrillator 09/03/2013 - Neuropathy (HCC) 02/09/2016 - Obesity, unspecified - Pure hypercholesterolemia - Restless leg syndrome 02/09/2016 - Snoring - Type II or unspecified type diabetes mellitus without mention of complication, not stated as uncontrolled - Vitamin D deficiency MEDICATIONS: dexamethasone sodium phosphate (DECADRON) 4 mg/mL injection 4 mg as needed (for physical therapy). Pramipexole 0.75 mg tablet Take 1 tablet by mouth daily at bedtime. cetirizine (ZYRTEC) 10 mg tablet Take 1 tablet by mouth once daily as needed (for itching, sneezing or runny nose). amoxicillin-clavulanic acid (AUGMENTIN) 875-125 mg per tablet Take 1 tablet by mouth twice daily. fexofenadine (JASVIR ALLERGY) 180 mg tablet Take 1 tablet by mouth once daily. azelastine (ASTELIN,ASTEPRO) 0.1% nasal spray Use 1-2 Sprays in each nostril twice daily as needed. sertraline (ZOLOFT) 50 mg tablet Take 1 tablet by mouth once daily. Take 1/2 tab once a day orally for one week then 1 tab once a day fluticasone (FLONASE) 50 mcg/actuation nasal spray Use 2 Sprays in each nostril once daily. pantoprazole DR (PROTONIX) 40 mg tablet TAKE 1 TABLET BY MOUTH TWICE DAILY Blood-Glucose Meter (daPulse ULTRA2) monitoring kit 1 Each as needed. insulin lispro ([facility] SOL[facility] U-100 INSULIN) 100 unit/mL inpn Inject subcutaneously three times daily before meals. Take 1 unit when blood sugar is above 200 or higher. DANITZA PAYNE oxybutynin ER (DITROPAN XL) 15 mg 24 hr Extended Rel Tab TAKE 1 TABLET BY MOUTH DAILY triamcinolone acetonide (KENALOG) 0.1 % ointment APPLY TO AFFECTED AREA(S) ON LEGS TWICE A DAY NEEDED *USE 2 WEEKS ON, 1 WEEK OFF *NOT FOR FACE, ARMPITS aspirin, enteric coated (ECOTRIN LOW STRENGTH) 81 mg EC tablet Take 1 tablet by mouth once daily. loratadine (CLARITIN) 10 mg tablet Take 1 tablet by mouth once daily. alogliptin 25 mg tab Take 1 tablet by mouth once daily. magnesium oxide (MAG-OX) 400 mg tablet Take 1 tablet by mouth twice daily. enalapril (VASOTEC) 2.5 mg tablet Take 1 tablet by mouth once daily. furosemide (LASIX) 40 mg tablet TAKE 1 TABLET DAILY spironolactone (ALDACTONE) 25 mg tablet TAKE 1 TABLET DAILY atorvastatin (LIPITOR) 10 mg tablet TAKE 1 TABLET DAILY carvedilol (COREG) 25 mg tablet TAKE 1 TABLET TWICE A DAY insulin glargine (BASAGLAR KWIKPEN) 100 unit/mL (3 mL) inpn Inject 21 Units subcutaneously every evening. ONETOUCH ULTRA TEST test strip USE TO TEST BLOOD SUGAR THREE TIMES A DAY Lancets lancets Test blood sugar(s) 3 times daily. Blood-Glucose Meter (FREESTYLE SYSTEM KIT) monitoring kit 1 Each as needed. repaglinide (PRANDIN) 2 mg tablet Take 1-2 tablets each meal Insulin Syringe-Needle U-100 (INSULIN SYRINGE) 1/2 mL 30 x 5/16 syrg Use 1 syringe for each dose 1/day insulin needles, DISPOSABLE, (PEN NEEDLE) 31 gauge x 5/16 ndle Use one needle per dose. 1 per day. fluticasone (FLONASE) 50 mcg/actuation nasal spray Use 2 Sprays in each nostril once daily. ALLERGIES: Allergies As of Date: 06/17/2018 Allergen Noted Reaction ADHESIVE TAPE (ROSINS) 03/27/2006 Itching LATEX 01/10/2011 Rash SIMVASTATIN 11/04/2012 Other: See Comments Fully Assessed 06/17/2018 PAST SURGICAL HISTORY Procedure Laterality Date - APPENDECTOMY 2006 - COLONOSCOP W/ OR W/O [facility] SPEC 10/08/06 - COLONOSCOP W/ OR W/O [facility] SPEC 09/18/2011 Colonoscopy - COLONOSCOP W/ OR W/O [facility] SPEC 09/27/2016 Colonoscopy - DESTR LES BENIGN/ PREMAL 02/06/12 Ablation anal condyomata - EGD 09-01-16 - INSERT DUAL CHAMBER ICD 09/03/13 pacemaker/defibulator - KNEE SCOPE,DIAGNOSTIC right - LAPAROSCOPY, SURGICAL, APPENDECTOMY 10/22/06 - PAST SURGICAL HISTORY OF Right 05-28 ganglion cyst - PAST SURGICAL HISTORY OF Left 2015 cyst removed from left foot - REMOVEANDREPLACE ICD PULSE GEN 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 Asthma: no. Eczema: no. Cystic fibrosis: no. Immunodeficiency: no. SOCIAL HISTORY: Social History Marital status: Spouse name: Years of education: Number of children: 2 Occupational History Occupation Employer Comment [employer]UR[employer] ([employer] Social History Main Topics Smoking status: Never Smoker Smokeless tobacco: Never Used Alcohol use: No Comment: seldom Drug use: No Sexual activity: Not Currently Partners with: Male Other Topics Concern Caffeine Concern Yes Comment:pop, tea Special Diet No Comment:average Exercise No Comment:sedentary Not working currently ENVIRONMENTAL HISTORY: Lives in a trailer. Age of home: 40 years Heating: propane Woodburning fireplace in the home: no Air conditioning: Central air Basement: No basement Ortiz: Ifgd-hi-osmy carpeting Dust mite controls: Dust mite controls are not in place. Pets in the home: 2 dogs Outdoor animals: There are no outdoor animals Tobacco smoke: No exposure in the home. Physical Exam: GENERAL APPEARANCE:Well appearing, alert, in no acute distress, well-hydrated, well nourished. Obese. HEENT: NCAT. EYES: conjunctiva and sclera normal. EARS: External ears normal. Canals clear. TM's normal. NOSE/SINUS:mild edema of the nasal mucosa . Purulent secretions noted in R naris THROAT: no erythema NECK:neck supple, no adenopathy HEART:RRR with normal S1 and S2 ,no murmurs, no gallops, no rubs LUNGS: clear to auscultation bilaterally, no wheezes, rales or rhonchi ABDOMEN:soft, nontender, nondistended, without organomegaly or palpable masses EXTREMITIES:Extremities normal, No deformities, No skin discoloration and No edema SKIN: Skin color, texture, turgor normal. No rashes or lesions. ALLERGY SKIN TESTS on 04/01/18:Negative to inhalants, latex, shellfish and mollusks FAHAD on 05/08/18: normal FeNO on 05/08/18: 7 ppb (normal) ASSESSMENT/PLAN: 1.) Nonallergic Rhinitis Continue astelin 2 sprays to each nostril one to two times a day as needed. Continue fluticasone nasal spray 2 sprays each nostril one to two times daily. Continue jasvir 180 mg once daily as needed for itching, sneezing or runny nose. 3.) Toxic effect latex: Latex skin tests were negative at her initial visit. A latex specific IgE level will be obtained to evaluate further for possible severe, immediate, IgE?mediated latex hypersensitivity. 4.) Adverse reaction food: Allergy skin tests to shellfish and mollusks were negative at her initial visit. Patient is at low risk for a severe, immediate, IgE?mediated reaction to shellfish and mollusks. 5.) Discussed medication dosage, usage, side effects, and goals of treatment in detail. 6 ) Follow-up in 1 year - patient will return sooner should new symptoms or problems arise. Depending on clinical course, CT sinus or ENT evaluation may be considered. (Patient reports she was evaluated by [facility] several years ago.) Justin Johnson MD CNOV Observed: 06/17/2018 Status: COMPLETED Source: [place] 2:30 PM [facility] REPOSITORY Office Visit (MARY) MICHELLE JULES ([id number]) 1965 F Date Time Provider Department 06/17/18 2:30 PM JUSTIN JOHNSON During your visit today, we recorded the following information about you: Pulse Blood pressure Weight 68/minute 121/74 102.5 kg Joanne Adams RN 06/17/2018 2:21 PM Signed Patient still congested. Feels better than last visit. Azelastine caused nose bleeds-uses once daily instead of twice daily. Flonase she is using once daily. She uses Vaseline to nares for dryness. Justin Johnson MD 06/17/2018 5:24 PM Signed Michelle Mcguire William is a 52 year old female with a history of nonallergic rhinitis, cough, GERD and hiatal hernia who presents for a follow-up visit. LUL was May 08, 2018. A 10 day course of Augmentin and Astelin were prescribed at that time. Her nasal symptoms have improved somewhat since her last visit. Still notes intermittent nasal congestion. Using fluticasone nasal spray and Astelin once daily only as twice daily use resulted in epistaxis. Intermittent headaches involving the temporal region bilaterally. No facial pressure. Denies cough. Denies postnasal drip. Continues to take Protonix BID with good control of her GERD sxs. To have knee surgery in mid-May (From initial visit on 04/01/18: Michelle Thomas is a 52 year old female who has symptoms of nasal congestion. Also with intermittent itchy eyes, clear rhinorrhea, sneezing, postnasal drip. Associated symptoms include cough . These symptoms are perennial with seasonal exacerbation in the summer. he patient has been suffering from these symptoms for several year(s). The patient has tried claritin with minimal relief of symptoms. Uses flonase as needed only. Triggers of her sxs include grass pollen and hay. She was on subcutaneous allergy immunotherapy several years ago with improvement in her symptoms. Denies systemic reactions due to immunotherapy. Of note, she is on carvedilol and has an implanted defibrillator in place due to a history of cardiomyopathy. She also complains of cough which is worse at night. This has been present for 2 months. She takes enalapril but has been on this medication since 2002. Denies a recent change in dose. The cough awakens her from sleep every night. She has intermittent daytime cough as well. Denies significant wheezing, chest tightness or shortness of breath. Denies a prior history of asthma. She has never used short acting beta agonists or other asthma medications. Denies a history of recurrent or chronic rhinosinusitis, nasal polyposis or nasal trauma. No prior imaging of the sinuses. No prior nasal or sinus surgery. 2 months ago, she developed vomiting and diarrhea shortly after ingesting oysters. No other symptoms. Denies subsequent ingestion of shellfish and mollusks. She takes Protonix 40 mg twice daily for GERD and hiatal hernia. EGD was completed in 2016. She complains of developing an itchy rash associated with use of latex gloves and Band-Aids. Denies complications during prior medical or dental procedures. 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 Denies symptoms with ingestion of avocado, banana, chestnut and kiwi. REVIEW OF SYSTEMS: Negative for fevers, chills, night sweats and unintentional weight loss. Negative for skin rash and skin lesions ROS negative except for those listed above. PAST MEDICAL HISTORY Diagnosis Date - Anxiety disorder in conditions classified elsewhere - Arthritis left knee with spur - Cardiomyopathy, nonischemic (HCC) 04/2013 - Degenerative joint disease involving multiple joints shoulders, right knee - Essential hypertension, benign - Family history of colon cancer 5y screening cycle - GERD (gastroesophageal reflux disease) - History of placement of internal cardiac defibrillator 09/03/2013 - Neuropathy ([facility]) 02/09/2016 - Obesity, unspecified - Pure hypercholesterolemia - Restless leg syndrome 02/09/2016 - Snoring - Type II or unspecified type diabetes mellitus without mention of complication, not stated as uncontrolled - Vitamin D deficiency MEDICATIONS: dexamethasone sodium phosphate (DECADRON) 4 mg/mL injection 4 mg as needed (for physical therapy). Pramipexole 0.75 mg tablet Take 1 tablet by mouth daily at bedtime. cetirizine (ZYRTEC) 10 mg tablet Take 1 tablet by mouth once daily as needed (for itching, sneezing or runny nose). amoxicillin-clavulanic acid (AUGMENTIN) 875-125 mg per tablet Take 1 tablet by mouth twice daily. fexofenadine (JASVIR ALLERGY) 180 mg tablet Take 1 tablet by mouth once daily. azelastine (ASTELIN,ASTEPRO) 0.1% nasal spray Use 1-2 Sprays in each nostril twice daily as needed. sertraline (ZOLOFT) 50 mg tablet Take 1 tablet by mouth once daily. Take 1/2 tab once a day orally for one week then 1 tab once a day fluticasone (FLONASE) 50 mcg/actuation nasal spray Use 2 Sprays in each nostril once daily. pantoprazole DR (PROTONIX) 40 mg tablet TAKE 1 TABLET BY MOUTH TWICE DAILY Blood-Glucose Meter (ONETOUCH ULTRA2) monitoring kit 1 Each as needed. insulin lispro (ADMELOG SOLOSTAR U-100 INSULIN) 100 unit/mL inpn Inject subcutaneously three times daily before meals. Take 1 unit when blood sugar is above 200 or higher. DANITZA PAYNE oxybutynin ER (DITROPAN XL) 15 mg 24 hr Extended Rel Tab TAKE 1 TABLET BY MOUTH DAILY triamcinolone acetonide (KENALOG) 0.1 % ointment APPLY TO AFFECTED AREA(S) ON LEGS TWICE A DAY NEEDED *USE 2 WEEKS ON, 1 WEEK OFF *NOT FOR FACE, ARMPITS aspirin, enteric coated (ECOTRIN LOW STRENGTH) 81 mg EC tablet Take 1 tablet by mouth once daily. loratadine (CLARITIN) 10 mg tablet Take 1 tablet by mouth once daily. alogliptin 25 mg tab Take 1 tablet by mouth once daily. magnesium oxide (MAG-OX) 400 mg tablet Take 1 tablet by mouth twice daily. enalapril (VASOTEC) 2.5 mg tablet Take 1 tablet by mouth once daily. furosemide (LASIX) 40 mg tablet TAKE 1 TABLET DAILY spironolactone (ALDACTONE) 25 mg tablet TAKE 1 TABLET DAILY atorvastatin (LIPITOR) 10 mg tablet TAKE 1 TABLET DAILY carvedilol (COREG) 25 mg tablet TAKE 1 TABLET TWICE A DAY insulin glargine (BASAGLAR KWIKPEN) 100 unit/mL (3 mL) inpn Inject 21 Units subcutaneously every evening. ONETOUCH ULTRA TEST test strip USE TO TEST BLOOD SUGAR THREE TIMES A DAY Lancets lancets Test blood sugar(s) 3 times daily. Blood-Glucose Meter (FREESTYLE SYSTEM KIT) monitoring kit 1 Each as needed. repaglinide (PRANDIN) 2 mg tablet Take 1-2 tablets each meal Insulin Syringe-Needle U-100 (INSULIN SYRINGE) 1/2 mL 30 x 5/16 syrg Use 1 syringe for each dose 1/day insulin needles, DISPOSABLE, (PEN NEEDLE) 31 gauge x 5/16 ndle Use one needle per dose. 1 per day. fluticasone (FLONASE) 50 mcg/actuation nasal spray Use 2 Sprays in each nostril once daily. ALLERGIES: Allergies As of Date: 06/17/2018 Allergen Noted Reaction ADHESIVE TAPE (ROSINS) 03/27/2006 Itching LATEX 01/10/2011 Rash SIMVASTATIN 11/04/2012 Other: See Comments Fully Assessed 06/17/2018 PAST SURGICAL HISTORY Procedure Laterality Date - APPENDECTOMY 2006 - COLONOSCOP W/ OR W/O [facility] SPEC 10/08/06 - COLONOSCOP W/ OR W/O [facility] SPEC 09/18/2011 Colonoscopy - COLONOSCOP W/ OR W/O [facility] SPEC 09/27/2016 Colonoscopy - DESTR LES BENIGN/ PREMAL 02/06/12 Ablation anal condyomata - EGD 09-01-16 - INSERT DUAL CHAMBER ICD 09/03/13 pacemaker/defibulator - KNEE SCOPE,DIAGNOSTIC right - LAPAROSCOPY, SURGICAL, APPENDECTOMY 10/22/06 - PAST SURGICAL HISTORY OF Right 11-14 ganglion cyst - PAST SURGICAL HISTORY OF Left 2016 cyst removed from left foot - REMOVEANDREPLACE ICD PULSE GEN 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 Asthma: no. Eczema: no. Cystic fibrosis: no. Immunodeficiency: no. 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 Age of home: 40 years Heating: [employer] fireplace in the home: no Air conditioning: Central air Basement: No basement Ortiz: Myxr-cq-qbjr carpeting Dust mite controls: Dust mite controls are not in place. Pets in the home: 2 dogs Outdoor animals: There are no outdoor animals Tobacco smoke: No exposure in the home. Physical Exam: GENERAL APPEARANCE:Well appearing, alert, in no acute distress, well-hydrated, well nourished. Obese. HEENT: NCAT. EYES: conjunctiva and sclera normal. EARS: External ears normal. Canals clear. TM's normal. NOSE/SINUS:mild edema of the nasal mucosa . Purulent secretions noted in R naris THROAT: no erythema NECK:neck supple, no adenopathy HEART:RRR with normal S1 and S2 ,no murmurs, no gallops, no rubs LUNGS: clear to auscultation bilaterally, no wheezes, rales or rhonchi ABDOMEN:soft, nontender, nondistended, without organomegaly or palpable masses EXTREMITIES:Extremities normal, No deformities, No skin discoloration and No edema SKIN: Skin color, texture, turgor normal. No rashes or lesions. ALLERGY SKIN TESTS on 04/01/18:Negative to inhalants, latex, shellfish and mollusks FAHAD on 05/08/18: normal FeNO on 05/08/18: 7 ppb (normal) ASSESSMENT/PLAN: 1.) Nonallergic Rhinitis Continue astelin 2 sprays to each nostril one to two times a day as needed. Continue fluticasone nasal spray 2 sprays each nostril one to two times daily. Continue jasvir 180 mg once daily as needed for itching, sneezing or runny nose. 3.) Toxic effect latex: Latex skin tests were negative at her initial visit. A latex specific IgE level will be obtained to evaluate further for possible severe, immediate, IgE?mediated latex hypersensitivity. 4.) Adverse reaction food: Allergy skin tests to shellfish and mollusks were negative at her initial visit. Patient is at low risk for a severe, immediate, IgE?mediated reaction to shellfish and mollusks. 5.) Discussed medication dosage, usage, side effects, and goals of treatment in detail. 6 ) Follow-up in 1 year - patient will return sooner should new symptoms or problems arise. Depending on clinical course, CT sinus or ENT evaluation may be considered. (Patient reports she was evaluated by [facility] several years ago.) Justin Johnson MD Referring Provider: MELLO DING [[id number]] Allergies As of Date: 06/17/2018 Noted Allergy Reaction ADHESIVE TAPE (ROSINS) 03/27/2006 9 - Itching LATEX 01/10/2011 2 - Rash Comments: Negative to skin testing SIMVASTATIN 11/04/2012 14 - Other: See Comments Comments: myalgia Date Reviewed: 06/17/2018 Reviewed by: Justin Johnson - Fully Assessed Reason for Visit: Established Patient [175] Cmt: 1 month f/u, sinusitis Primary Visit Diagnosis:Nonallergic rhinitis [J31.0] Other Visit Diagnosis:Toxic effect of latex, accidental (unintentional), subsequent encounter [T65.811D] Prescriptions as of 06/17/2018 Sig: DEXAMETHASONE 4 MG/ML INJECTI* 4 mg as needed (for physical * PRAMIPEXOLE 0.75 MG TABLET Take 1 tablet by mouth daily * CETIRIZINE 10 MG TABLET Take 1 tablet by mouth once d* AMOXICILLIN 875 MG-POTASSIUM * Take 1 tablet by mouth twice * FEXOFENADINE 180 MG TABLET Take 1 tablet by mouth once d* AZELASTINE 137 MCG (0.1 %) NA* Use 1-2 Sprays in each nostri* SERTRALINE 50 MG TABLET Take 1 tablet by mouth once d* FLUTICASONE 50 MCG/ACTUATION * Use 2 Sprays in each nostril * PANTOPRAZOLE 40 MG TABLET,DEL* TAKE 1 TABLET BY MOUTH TWICE * BLOOD-GLUCOSE METER KIT 1 Each as needed. INSULIN LISPRO (U-100) 100 UN* Inject subcutaneously three t* OXYBUTYNIN CHLORIDE ER 15 MG * TAKE 1 TABLET BY MOUTH DAILY TRIAMCINOLONE ACETONIDE 0.1 %* APPLY TO AFFECTED AREA(S) ON * ASPIRIN 81 MG TABLET,DELAYED * Take 1 tablet by mouth once d* LORATADINE 10 MG TABLET Take 1 tablet by mouth once d* ALOGLIPTIN 25 MG TABLET Take 1 tablet by mouth once d* MAGNESIUM OXIDE 400 MG (241.3* Take 1 tablet by mouth twice * ENALAPRIL MALEATE 2.5 MG TABL* Take 1 tablet by mouth once d* FUROSEMIDE 40 MG TABLET TAKE 1 TABLET DAILY SPIRONOLACTONE 25 MG TABLET TAKE 1 TABLET DAILY ATORVASTATIN 10 MG TABLET TAKE 1 TABLET DAILY CARVEDILOL 25 MG TABLET TAKE 1 TABLET TWICE A DAY INSULIN GLARGINE (U-100) 100 * Inject 21 Units subcutaneousl* ONETOUCH ULTRA TEST STRIPS USE TO TEST BLOOD SUGAR THREE* LANCETS Test blood sugar(s) 3 times d* BLOOD-GLUCOSE METER KIT 1 Each as needed. REPAGLINIDE 2 MG TABLET Take 1-2 tablets each meal Patient taking differently: Take 1-2 tablets three times * INSULIN SYRINGE U-100 WITH NE* Use 1 syringe for each dose 1* PEN NEEDLE, DIABETIC 31 GAUGE* Use one needle per dose. 1 pe* FLUTICASONE 50 MCG/ACTUATION * Use 2 Sprays in each nostril * Patient not taking: Reported on 06/17/2018 Problem List As Of Date 06/17/2018 Noted Resolved Pure hypercholesterolemia [E78.00] Diabetes mellitus (HCC) [E11.9] 08/16/2016 More... Essential hypertension, benign [I10] Unspecified disorder of joint [719.9] 11/23/2016 More... 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 Cardiomyopathy, nonischemic [I42.8] INVALID FOR* Abnormality of gait [R26.9] INVALID FOR* DM (diabetes mellitus), type 2, uncontrolled w/*INVALID FOR*12/21/2015 Chronic nausea [R11.0] INVALID FOR*09/01/2015 Ganglion cyst of right foot [M67.471] INVALID FOR* ICD (implantable cardioverter-defibrillator) in*INVALID FOR*08/16/2016 Biventricular ICD (implantable cardioverter-def*INVALID FOR* Uncontrolled type 2 diabetes mellitus with diab*INVALID FOR* More... Neuropathy (HCC) [G62.9] INVALID FOR*08/16/2016 Restless leg syndrome [G25.81] INVALID FOR* Peroneal tendinitis [M76.70] INVALID FOR* Pain in joint, ankle and foot [M25.579] INVALID FOR* Nonallergic rhinitis [J31.0] INVALID FOR* Visit Notes: >> Joanne Wells Jun 17, 2018 2:06 PM Status: Signed Patient still congested. Feels better than last visit. Azelastine caused nose bleeds-uses once daily instead of twice daily. Flonase she is using once daily. She uses Vaseline to nares for dryness. Disposition: Return in about 1 year (around 06/17/2019). Follow-up and Disposition History Recorded Encounter Status:Closed by JUSTIN JOHNSON MD on 06/17/18 ALGN LATEX IGE Collected: 06/17/2018 Status: F Source: [place] 1:40 PM [facility] REPOSITORY TYPE CODE TESTS RESULT OUT OF REFERENCE UNITS RANGE LAB LATX <0.35 KU/L Latex IgE <0.35 LAB LATXCL 0 Latex 0 Class Performed By: #### LATEXA #### [facility] [address] [id number] OBSOLETE Observed: 06/13/2018 Status: COMPLETED Source: [place] 8:00 AM CLINIC OTHER CAMPUS REPOSITORY Procedure (AKEPD) MICHELLE JULES ([id number]) 1965 F Date Time Provider Department 06/13/18 8:00 AM REM DEVICE [facility] AKE[facility] During your visit today, we recorded the following information about you: Referring Provider: LILO WHEELER [[id number]] Allergies As of Date: 06/13/2018 Noted Allergy Reaction ADHESIVE TAPE (ROSINS) 03/27/2006 9 - Itching LATEX 01/10/2011 2 - Rash Comments: Negative to skin testing SIMVASTATIN 11/04/2012 14 - Other: See Comments Comments: myalgia Date Reviewed: 05/26/2018 Reviewed by: Irena Brandt Ma - Fully Assessed Reason for Visit: Remote ICD Follow Up [1924] Visit Diagnosis:Cardiomyopathy, nonischemic (HCC) [I42.8] Prescriptions as of 06/13/2018 Sig: PRAMIPEXOLE 0.75 MG TABLET Take 1 tablet by mouth daily * CETIRIZINE 10 MG TABLET Take 1 tablet by mouth once d* AMOXICILLIN 875 MG-POTASSIUM * Take 1 tablet by mouth twice * FEXOFENADINE 180 MG TABLET Take 1 tablet by mouth once d* AZELASTINE 137 MCG (0.1 %) NA* Use 1-2 Sprays in each nostri* SERTRALINE 50 MG TABLET Take 1 tablet by mouth once d* FLUTICASONE 50 MCG/ACTUATION * Use 2 Sprays in each nostril * PANTOPRAZOLE 40 MG TABLET,DEL* TAKE 1 TABLET BY MOUTH TWICE * BLOOD-GLUCOSE METER KIT 1 Each as needed. INSULIN LISPRO (U-100) 100 UN* Inject subcutaneously three t* OXYBUTYNIN CHLORIDE ER 15 MG * TAKE 1 TABLET BY MOUTH DAILY TRIAMCINOLONE ACETONIDE 0.1 %* APPLY TO AFFECTED AREA(S) ON * ASPIRIN 81 MG TABLET,DELAYED * Take 1 tablet by mouth once d* LORATADINE 10 MG TABLET Take 1 tablet by mouth once d* Patient not taking: Reported on 05/21/2018 ALOGLIPTIN 25 MG TABLET Take 1 tablet by mouth once d* MAGNESIUM OXIDE 400 MG (241.3* Take 1 tablet by mouth twice * ENALAPRIL MALEATE 2.5 MG TABL* Take 1 tablet by mouth once d* FUROSEMIDE 40 MG TABLET TAKE 1 TABLET DAILY SPIRONOLACTONE 25 MG TABLET TAKE 1 TABLET DAILY ATORVASTATIN 10 MG TABLET TAKE 1 TABLET DAILY CARVEDILOL 25 MG TABLET TAKE 1 TABLET TWICE A DAY INSULIN GLARGINE (U-100) 100 * Inject 21 Units subcutaneousl* FLUTICASONE 50 MCG/ACTUATION * Use 2 Sprays in each nostril * ONETOUCH ULTRA TEST STRIPS USE TO TEST BLOOD SUGAR THREE* LANCETS Test blood sugar(s) 3 times d* BLOOD-GLUCOSE METER KIT 1 Each as needed. REPAGLINIDE 2 MG TABLET Take 1-2 tablets each meal Patient taking differently: Take 1-2 tablets three times * INSULIN SYRINGE U-100 WITH NE* Use 1 syringe for each dose 1* PEN NEEDLE, DIABETIC 31 GAUGE* Use one needle per dose. 1 pe* Problem List As Of Date 06/13/2018 Noted Resolved Pure hypercholesterolemia [E78.00] Diabetes mellitus (HCC) [E11.9] 08/16/2016 More... Essential hypertension, benign [I10] Unspecified disorder of joint [719.9] 11/23/2016 More... 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 Cardiomyopathy, nonischemic [I42.8] INVALID FOR* Abnormality of gait [R26.9] INVALID FOR* DM (diabetes mellitus), type 2, uncontrolled w/*INVALID FOR*12/21/2015 Chronic nausea [R11.0] INVALID FOR*09/01/2015 Ganglion cyst of right foot [M67.471] INVALID FOR* ICD (implantable cardioverter-defibrillator) in*INVALID FOR*08/16/2016 Biventricular ICD (implantable cardioverter-def*INVALID FOR* Uncontrolled type 2 diabetes mellitus with diab*INVALID FOR* More... Neuropathy (HCC) [G62.9] INVALID FOR*08/16/2016 Restless leg syndrome [G25.81] INVALID FOR* Peroneal tendinitis [M76.70] INVALID FOR* Pain in joint, ankle and foot [M25.579] INVALID FOR* Nonallergic rhinitis [J31.0] INVALID FOR* Encounter Status:Closed by ALBERTINA PECK on 06/13/18 US EXT MASS/FLUID Observed: 06/11/2018 Status: F Source: [facility] 2:17 PM [facility] REPOSITORY * * *Final Report* * * DATE OF EXAM: Jun 11 2018 2:17PM [facility] 1024 - US EXT MASS/FLUID COLLECTION LT / PROCEDURE REASON: multiple diagnoses * * * * Physician Interpretation * * * * MSK_US SOFT TISSUE ULTRASOUND OF THE BILATERAL FEET. HISTORY: History of bilateral lateral swelling with previous bursectomy on the right in the region of the fifth metatarsal base. TECHNIQUE: Grayscale and power Doppler ultrasound imaging was performed in the area of concern and images were saved to the permanent image archive. Comparison: Ultrasound right foot 04/08/2014. RESULT: Right foot: 0.8 x 1.8 x 1.6 cm poorly defined compressible fluid collection immediately lateral to the base of the fifth metatarsal, previously 1.7 x 1.2 x 2.2 cm, without hyperemia. Thickening and hyperemia of the plantar fascia insertion on the fifth metatarsal base, consistent with plantar fasciitis. Enthesopathy of the insertion of the peroneal brevis tendon. The tendon is otherwise normal. Left foot: 0.7 x 2.1 x 1.1 cm poorly defined compressible fluid collection immediately lateral to the base of the fifth metatarsal, more well-defined than on the previous comparison ultrasound, without hyperemia. Thickening and hyperemia of the plantar fascia insertion on the fifth metatarsal base, consistent with plantar fasciitis. Enthesopathy of the insertion of the peroneal brevis tendon. The tendon is otherwise normal. IMPRESSION: BILATERAL ADVENTITIAL BURSITIS, RECURRENT ON THE RIGHT AND DEVELOPING ON THE LEFT. BILATERAL INSERTIONAL PLANTAR FASCIITIS ON THE BASE OF THE FIFTH METATARSAL, LEFT GREATER THAN RIGHT. Quality Assurance Supervisor Trim: PSCB Transcribe Date/Time: Jun 11 2018 2:15P Dictated by : LUIS RIVERA MD This examination was interpreted and the report reviewed and electronically signed by: LUIS HUMPHRIES MD on Jun 11 2018 3:14PM EST [id number] US EXT MASS/FLUID Observed: 06/11/2018 Status: F Source: [place] [facility]LE[facility] RT 2:17 PM [facility] REPOSITORY * * *Final Report* * * DATE OF EXAM: Jun 11 2018 2:17PM [facility] 1025 - US EXT MASS/FLUID COLLECTION RT / PROCEDURE REASON: multiple diagnoses * * * * Physician Interpretation * * * * MSK_US SOFT TISSUE ULTRASOUND OF THE BILATERAL FEET. HISTORY: History of bilateral lateral swelling with previous bursectomy on the right in the region of the fifth metatarsal base. TECHNIQUE: Grayscale and power Doppler ultrasound imaging was performed in the area of concern and images were saved to the permanent image archive. Comparison: Ultrasound right foot 04/08/2014. RESULT: Right foot: 0.8 x 1.8 x 1.6 cm poorly defined compressible fluid collection immediately lateral to the base of the fifth metatarsal, previously 1.7 x 1.2 x 2.2 cm, without hyperemia. Thickening and hyperemia of the plantar fascia insertion on the fifth metatarsal base, consistent with plantar fasciitis. Enthesopathy of the insertion of the peroneal brevis tendon. The tendon is otherwise normal. Left foot: 0.7 x 2.1 x 1.1 cm poorly defined compressible fluid collection immediately lateral to the base of the fifth metatarsal, more well-defined than on the previous comparison ultrasound, without hyperemia. Thickening and hyperemia of the plantar fascia insertion on the fifth metatarsal base, consistent with plantar fasciitis. Enthesopathy of the insertion of the peroneal brevis tendon. The tendon is otherwise normal. IMPRESSION: BILATERAL ADVENTITIAL BURSITIS, RECURRENT ON THE RIGHT AND DEVELOPING ON THE LEFT. BILATERAL INSERTIONAL PLANTAR FASCIITIS ON THE BASE OF THE FIFTH METATARSAL, LEFT GREATER THAN RIGHT. Quality Assurance Supervisor Trim: DENISSE Transcribe Date/Time: Jun 11 2018 2:15P Dictated by : LUIS RIVERA MD This examination was interpreted and the report reviewed and electronically signed by: LUIS HUMPHRIES MD on Jun 11 2018 3:14PM EST [id number] ENDOCRINOLOGY VISIT Observed: 06/04/2018 Status: F Source: [place] [facility] 8:14 AM [facility] REPOSITORY [facility] [address] [place] [address] OFFICE VISIT Date of Service: 06/03/18 MR#: [id number] Acct: [id number] Name: MICHELLE JULES Rep #: [id number] : 1965 Provider: Lissette Payne NP Age/Sex: 52/F Location: [facility] Status: Signed HPI History of present illness HPI History of present illness Michelle Thomas is a 52 year old female who presents for follow up of diabetes type 2. Diagnosed in 2002. Continues on prandin, basaglar 48 units daily. Started on admelog 6 units via phone conversation due to continued high BG. Pt denies difficulty with injections or self monitoring of BG. Denies any signs of infection or irritation at site of injections. Reports taking insulin as directed Recently had to stop her metformin due to cardiac issues. Her BG readings which had bee doing extremely well have destablized and now are uncontrolled and high. Placed on admelog sliding scale using 1 unit per 35 BG points. At time of visit: -Pt denies symptoms of hypertensive emergency (CP,SOB,HUGHES, or blurred vision) and hypotension(dizziness or lightheadedness) -Pt denies symptoms of hypoglycemia ( sweaty, confusion, anxiety, tremor, hunger, palpitations) and hyperglycemia ( polydipsia, polyuria) -Pt denies potential medication adverse effect. Hypoglycemia Aware of hypoglycemia: yes Able to self treat low BG: Yes Frequent low Blood sugar: No Has supply of glucagon: no Diet has been eating 3 meals daily. Can carb count Occ bedtime snack SMBG average 250 range 168-500 Checks 3-4 times daily Exam Const General: comfortable, no acute distress Nutritional Appearance: well nourished, overweight Orientation: oriented x3 HENWA Head: normal to inspection, normocephalic Ears: hearing grossly normal bilaterally Mouth: oral mucosae normal, moist mucous membranes Teeth and gingiva: dentition normal Eyes General: appearance normal, both eyes and all related structures Eyelids: eyelids normal Conjunctivae: conjunctivae normal Sclera: sclerae normal Pupils: PERRL Neck Neck: normal visual inspection, no lymphadenopathy Resp Effort AND Inspection: normal respiratory effort, able to speak in complete sentences, symmetric chest movement Auscultation: Bilateral: Clear to Auscultation Cardio Rate: regular rate Rhythm: regular rhythm Heart Sounds: S1 normal, S2 normal GI Inspection: normal to inspection Auscultation: normal bowel sounds Palpation: soft Skin General: no rashes or lesions noted Wounds: no wounds Diabetic Foot Pulses: L dorsalis pedis pulse: normal, R dorsalis pedis pulse: normal Monofilament test: Left foot: normal Neuro General: gait normal, moves all extremities Cognition: normal cognition Speech: speech normal Gait: normal gait Extrem General: normal to inspection, no pedal edema Psych Appearance: well kempt Mental Status: mental status grossly normal Mood: congruent mood Affect: normal affect Speech and Movement: speech and movement normal Attitude: cooperative Thought Process: normal Thought Content: normal Judgment: judgment good Type: type 2, insulin-requiring Glucose control symptoms: Reports high fasting glucose Weight and fatigue symptoms: Reports weight gain Pertinent visit history: Denies recent visit to ER, recent hospital admission or recent 911 calls Intake Vital Signs06/03/18 Height 5 ft 9 in 06/03/18 Weight: 223 lb 06/03/18 Body Mass Index (BMI) 32.9 06/03/18 Blood Pressure 125/73 H 06/03/18 Blood Pressure Location Lt brachial Intake Visit Reasons: Diabetes follow-up Allergies simvastatin Allergy (Severe, Verified 06/03/18 12:49) Unknown Latex, Natural Rubber Allergy (Unknown, Verified 06/03/18 12:49) Rash Medications Aspirin E.C. [Ecotrin] 81 mg PO DAILY 04/18/13 [History Confirmed 06/03/18] Furosemide [Lasix] 40 mg PO DAILY #30 tab 04/24/13 [Rx Confirmed 06/03/18] Magnesium Oxide [Mag-Ox 400] 400 mg PO BID #30 tab 06/01/13 [Rx Confirmed 06/03/18] alogliptin 25 mg tablet 25 mg PO DAILY 08/12/17 [History Confirmed 06/03/18] atorvastatin 10 mg tablet 10 mg PO DAILY 08/12/17 [History Confirmed 06/03/18] carvedilol 12.5 mg tablet 25 mg PO BID tab 08/12/17 [History Confirmed 06/03/18] oxybutynin chloride 5 mg tablet 15 mg PO DAILY 08/12/17 [History Confirmed 06/03/18] pantoprazole 40 mg tablet,delayed release 40 mg PO BID tab 08/12/17 [History Confirmed 06/03/18] pramipexole 0.25 mg tablet 0.75 mg PO QHS tab 08/12/17 [History Confirmed 06/03/18] spironolactone 25 mg tablet 25 mg PO DAILY 08/12/17 [History Confirmed 06/03/18] repaglinide 2 mg tablet See Rx Instructions PO TID #240 tab 10/07/17 [Rx Confirmed 06/03/18] Enalapril Maleate [Vasotec] 2.5 mg PO DAILY 11/07/17 [History Confirmed 06/03/18] Sertraline HCl [Zoloft] 50 mg PO DAILY 03/04/18 [History Confirmed 06/03/18] insulin syringe-needle U-100 0.5 mL 31 gauge x 11/27 See Dose Instructions .ROUTE .MEDSUPPLY #90 ea 03/11/18 [Rx Confirmed 06/03/18] OneTouch Delica Lancets 30 gauge See Dose Instructions .ROUTE .MEDSUPPLY #300 ea NS 03/24/18 [Rx Confirmed 06/03/18] OneTouch Ultra Blue Test Strip See Dose Instructions .ROUTE .MEDSUPPLY #300 ea NS 03/24/18 [Rx Confirmed 06/03/18] pen needle, diabetic 32 gauge x See Dose Instructions .ROUTE .MEDSUPPLY #200 ea 03/24/18 [Rx Confirmed 06/03/18] insulin lispro (U- 100) 100 unit/mL subcutaneous solution See Rx Instructions SC TID #3 ml 05/06/18 [Rx Confirmed 06/03/18] Amoxicillin/Potassium Clav [Amox Tr-K Clv 875-125 mg Tab] 1 ea PO BID 05/16/18 [History Confirmed 06/03/18] Cetirizine HCl [Allergy Relief] 10 mg PO DAILY 05/16/18 [History Confirmed 06/03/18] Insulin Glargine,Hum.rec.anlog [Basaglar LilyPen U-100 Insulin] 47 unit SUBCUT 1700 05/16/18 [History Confirmed 06/03/18] flash glucose scanning reader See Dose Instructions .ROUTE .MEDSUPPLY #1 ea 05/28/18 [Rx Confirmed 06/03/18] flash glucose sensor kit See Dose Instructions .ROUTE .MEDSUPPLY #1 ea 05/28/18 [Rx Confirmed 06/03/18] [facility] Medical History Gout (Acute) Heart disease (Acute) Nonischemic dilated cardiomyopathy (Acute) Arthritis (Chronic) Diabetes type 2, controlled (Chronic) HTN (hypertension) (Chronic) Headache (Chronic) Hyperlipidemia (Chronic) Pulmonary HTN (Chronic) RLS (restless legs syndrome) (Chronic) Seasonal allergies (Chronic) Surgical History H/O colectomy (Acute) History of hysteroscopy (Acute) History of left heart catheterization (Acute) Hx of appendectomy (Acute) Family History Father Heart disease Myocardial infarction CAD (coronary artery disease) Mother CAD (coronary artery disease) Heart disease Social History Smoking Status: Never smoker second hand exposure: No alcohol intake: current alcohol intake frequency: a few times a month substance use type: does not use Assessment AND Plan 1. Diabetes mellitus type 2 in obese E11.9; E66.9 t Plan BG readings had started to drop into the high 100 range but over the last week or so she had sinus infection and now BG back into the 200 and 300 range. Will continue to increase admelog at meals due to pattern of BG and enc patient to continue with sliding scale insulin. Control portions Food selections should be healthy Choose more low carb vegetables Avoid snacks and desserts. Drink water Exercise daily Eat more fresh foods, not canned or processed Eat more slowly 2. Hyperlipidemia associated with type 2 diabetes mellitus E11.69; E78.5 On statin. Tolerating well. Chol 112, TRI 129, LDL 48, Plan On statin. Tolerating well. Managed by cardiology. Plan Detail Additional Comments 1. Please schedule follow up in 3 months. 2. Lab work one week before appointment. 3. Discussed importance of regular exercise and recommend starting or continuing a regular exercise program for good health. 4. The patient was encouraged to lose weight for good health 5. The importance of monitoring blood sugar regularly was reviewed. 6. The importance of monitoring the HBA1c level regularly was reviewed. 7. The importance of prper foot care and regularly checking feet to prevent sores and loss of limbs was reviewed. 8. The importance of keeping BP at or below 130/80 to prevent stroke, heart attacks, kidney failure, blindness was reviewed. Spent approximately 30 minutes with patient with over 50% of time spent in discussion and counseling regarding medication adjustment, symptoms and treatment of hypoglycemia, diet adherence, and checking BG before driving. Coding Level of Care Code Off vis,est,level 4 Diagnoses Diabetes mellitus type 2 in obese E11.9; E66.9 Hyperlipidemia associated with type 2 diabetes mellitus E11.69; E78.5 06/04/18 0814 <Electronically signed by Lissette NOLAN> Date Lissette NOLAN Cosigner Signature: Date (if applicable) CC: CBC Collected: 05/30/2018 Status: F Source: [facility] 12:05 PM [facility] REPOSITORY TYPE CODE TESTS RESULT OUT OF RANGE REFERENCE UNITS LAB CBC(LOINC) CBC Result Comment: CBC-COMPLETE BLOOD COUNT LAB WBC(LOINC) 4.5 - 10.8 x 10EE3/UL WBC 7.3 LAB RBC(LOINC) 4.10 - x 10EE6/UL 5.30 RBC 4.33 LAB HEMOGLOBIN(LOINC 12.0 - g/dl ) 16.0 Low HEMOGLOBIN 11.4 LAB HEMATOCRIT(LOINC 34.0 - % ) 46.0 HEMATOCRIT 34.5 LAB MCV(LOINC) 80 - 99 fl MCV 80 LAB MCH(LOINC) 27 - 33 pg MCH Low 26 LAB MCHC(LOINC) 32 - 36 X10 3 MCHC 33 LAB RDW/CV(LOINC) 12.0 - % 15.6 RDW/CV High 16.6 LAB PLATELET(LOINC) 150 - 450 x10EE3/UL PLATELET 195 LAB MPV(LOINC) 6.6 - 10.5 fl MPV 9.4 Result Comment: AUTOMATED DIFFERENTIAL LAB NEUT %(LOINC) 46.0 - 76.0 % NEUT % 72.0 LAB LYMPH %(LOINC) 20.0 - 45.0 % LYMPH % Low 18.5 LAB MONOS %(LOINC) 0.0 - 10.0 % MONOS % 7.1 LAB EO %(LOINC) 0.0 - 7.0 % EO % 1.4 LAB BASO %(LOINC) 0.0 - 2.0 % BASO % 1.0 LAB Lymph #(LOINC) 0.80 - 2.80 x10EE3/U L Lymph # 1.30 LAB Neut #(LOINC) 1.50 - 7.10 x10EE3/U L Neut # 5.20 LAB Alfalfa #(LOINC) 0.20 - 1.00 x10EE3/U L Alfalfa # 0.50 LAB EO #(LOINC) 0.00 - 0.50 x10EE3/U L EO # 0.10 LAB Baso #(LOINC) 0.00 - 0.10 x10EE3/U L Baso # 0.10 LAB MANUAL DIFF(LOINC) MANUAL DIFF N/A LAB MORPHOLOGY(LOINC ) MORPHOLOGY N/A Result Comment: {CD] Performed By: #### [id number] #### [facility],[address] [place] [address] BMP WITH EGFR Collected: 05/30/2018 Status: F Source: [facility] 12:05 PM [facility] REPOSITORY TYPE CODE TESTS RESULT OUT OF RANGE REFERENCE UNITS LAB BMP with eGFR(LOINC) BMP with eGFR Result Comment: BASIC METABOLIC PANEL LAB SODIUM(LOINC) 136 - 145 mmol/l SODIUM 136 LAB POTASSIUM(LOINC) 3.5 - 5.1 mmol/L POTASSIUM 4.3 LAB CHLORIDE(LOINC) 98 - 107 mmol/L CHLORIDE 100 LAB CO2(LOINC) 21.0 - mmol/L 31.0 CO2 29.5 LAB GLUCOSE(LOINC) 74 - 106 mg/dl GLUCOSE High 317 LAB BUN(LOINC) 6 - 20 mg/dl BUN 14 LAB CREATININE(LOINC) 0.6 - 1.2 mg/dl CREATININE 0.9 LAB CALCIUM(LOINC) 8.6 - mg/dl 10.2 CALCIUM 9.6 LAB ANION GAP(LOINC) 10 - 20 mmol/L ANION GAP 11 LAB AGE(LOINC) years AGE 52 LAB eGFR(LOINC) 60 - 999 ML/MINUTE eGFR >60 LAB eGFR(AA)(LOINC) 60 - 999 ML/MINUTE eGFR(AA) >60 Result Comment: ACCORDING TO THE NATIONAL KIDNEY DISEASE EDUCATION PROGRAM(NKDE), A NORMAL eGFR IS A VALUE GREATER THAN OR EQUAL TO 60 ML/MIN/1.73 SQ METERS. CHRONIC KIDNEY DISEASE: <60mL/MIN/1.73 SQ METERS KIDNEY FAILURE: <15mL/MIN/1.73 SQ METERS THIS TEST SHOULD ONLY BE USED FOR PATIENTS 18 YEARS OF AGE AND OLDER. Performed By: #### [id number] #### [place] [id number] HGB A1C Collected: 05/30/2018 Status: F Source: [facility] 12:05 PM [facility] REPOSITORY TYPE CODE TESTS RESULT OUT OF RANGE REFERENCE UNITS LAB HGB 4.4 - 6.4 % A1C(LOINC) High HGB A1C 9.4 Result Comment: {HB] {A1] Performed By: #### [id number] #### [place] [address] PROGRESS Observed: 05/26/2018 Status: COMPLETED Source: [place] 9:44 AM [facility] REPOSITORY O ID: [id number] Author: Irena Brandt Ma Service: (none) Author Type: (none) Type: Progress Notes Filed: 05/26/2018 9:56 AM Note Text: 52 year old female here for INACTIVATED INFLUENZA VACCINE. [id number] Season Patient is identified by name and date of : Yes [] CONTRAINDICATIONS color enhanced section Age less than 6 months? No Allergy to eggs, chicken, chicken feathers, or chicken dander? No Allergy to thimerosal (a preservative) or formaldehyde, gelatin? No History of severe reaction to any vaccine component or a previous dose of influenza vaccination? No History of Guillain-[place] Syndrome within 6 weeks after a previous influenza vaccine? No Patient is not moderately or severely ill? No Current temperature greater or equal to 100.4F? No History of Bone Marrow Transplant prior 6 months or solid organ transplant in the past 3 months ? No History of fainting after a prior injection or medical procedure? No- ? If patient has fainted in the past, the CDC recommends sitting or lying down for 15 minutes after the vaccination. [] VERIFICATION color enhanced section Was the answer Yes for any of the above contraindications? No contraindications present. Acceptable to proceed with vaccine. Patient/guardian agrees the above answers are true to the best of their knowledge? Yes Flu vaccine information sheet given? Yes See immunization activity in [facility] for details of immunizations adminstered today. Patient age: [age] year old For The 6312-8687 Flu Season 6-35 months old: Fluzone 0.25 ml - IM (Preservative Free) 3 years of age: Fluzone 0.5 ml - IM (Preservative Free) 3 years and older: Fluzone 0.5 ml- IM-(with Preservatives) 65+ years old: 2-49 years old Fluzone High-Dose 0.5 ml - IM (Preservative Free) FLUMIST- intranasal REMEMBER: If patient is less than 9 years of age and this is the first vaccine of Influenza to be received in any flu season, they should receive a second dose in one months time. CNOV Observed: 05/26/2018 Status: COMPLETED Source: [facility] 9:30 AM [facility] REPOSITORY Office Visit (UCWSTR) MICHELLE JULES ([id number]) 1965 F Date Time Provider Department [facility]18 [facility] [facility] During your visit today, we recorded the following information about you: Temperature 97.6 degrees Irenatex Palmashanell Walden 05/26/2018 9:56 AM Signed 52 year old female here for INACTIVATED INFLUENZA VACCINE. [id number] Season Patient is identified by name and date of : Yes [] CONTRAINDICATIONS color enhanced section Age less than 6 months? No Allergy to eggs, chicken, chicken feathers, or chicken dander? No Allergy to thimerosal (a preservative) or formaldehyde, gelatin? No History of severe reaction to any vaccine component or a previous dose of influenza vaccination? No History of Guillain-[place] Syndrome within 6 weeks after a previous influenza vaccine? No Patient is not moderately or severely ill? No Current temperature greater or equal to 100.4F? No History of Bone Marrow Transplant prior 6 months or solid organ transplant in the past 3 months ? No History of fainting after a prior injection or medical procedure? No- ? If patient has fainted in the past, the CDC recommends sitting or lying down for 15 minutes after the vaccination. [] VERIFICATION color enhanced section Was the answer Yes for any of the above contraindications? No contraindications present. Acceptable to proceed with vaccine. Patient/guardian agrees the above answers are true to the best of their knowledge? Yes Flu vaccine information sheet given? Yes See immunization activity in [facility] for details of immunizations adminstered today. Patient age: [age] year old For The 3655-6758 Flu Season 6-35 months old: Fluzone 0.25 ml - IM (Preservative Free) 3 years of age: Fluzone 0.5 ml - IM (Preservative Free) 3 years and older: Fluzone 0.5 ml- IM-(with Preservatives) 65+ years old: 2-49 years old Fluzone High-Dose 0.5 ml - IM (Preservative Free) FLUMIST- intranasal REMEMBER: If patient is less than 9 years of age and this is the first vaccine of Influenza to be received in any flu season, they should receive a second dose in one months time. Referring Provider: SELF [[id number]] Allergies As of Date: 05/26/2018 Noted Allergy Reaction ADHESIVE TAPE (ROSINS) 03/27/2006 9 - Itching LATEX 01/10/2011 2 - Rash Comments: Negative to skin testing SIMVASTATIN 11/04/2012 14 - Other: See Comments Comments: myalgia Date Reviewed: 05/26/2018 Reviewed by: Irena Brandt Ma - Fully Assessed Reason for Visit: Imm/Inj [58] Cmt: flu shot Imm/Inj [58] Cmt: Flu Vaccine Reason For Visit History Recorded Primary Visit Diagnosis:Need for vaccination [Z23] Order(s):INFLUENZA VACCINE QUADRIVALENT AGE 3 YRS PLUS + IM [[id number]] Order #: [id number] Prescriptions as of 05/26/2018 Sig: CETIRIZINE 10 MG TABLET Take 1 tablet by mouth once d* AMOXICILLIN 875 MG-POTASSIUM * Take 1 tablet by mouth twice * FEXOFENADINE 180 MG TABLET Take 1 tablet by mouth once d* AZELASTINE 137 MCG (0.1 %) NA* Use 1-2 Sprays in each nostri* SERTRALINE 50 MG TABLET Take 1 tablet by mouth once d* FLUTICASONE 50 MCG/ACTUATION * Use 2 Sprays in each nostril * PANTOPRAZOLE 40 MG TABLET,DEL* TAKE 1 TABLET BY MOUTH TWICE * BLOOD-GLUCOSE METER KIT 1 Each as needed. INSULIN LISPRO (U-100) 100 UN* Inject subcutaneously three t* OXYBUTYNIN CHLORIDE ER 15 MG * TAKE 1 TABLET BY MOUTH DAILY TRIAMCINOLONE ACETONIDE 0.1 %* APPLY TO AFFECTED AREA(S) ON * ASPIRIN 81 MG TABLET,DELAYED * Take 1 tablet by mouth once d* LORATADINE 10 MG TABLET Take 1 tablet by mouth once d* Patient not taking: Reported on 05/21/2018 ALOGLIPTIN 25 MG TABLET Take 1 tablet by mouth once d* PRAMIPEXOLE 0.75 MG TABLET Take 1 tablet by mouth daily * MAGNESIUM OXIDE 400 MG (241.3* Take 1 tablet by mouth twice * ENALAPRIL MALEATE 2.5 MG TABL* Take 1 tablet by mouth once d* FUROSEMIDE 40 MG TABLET TAKE 1 TABLET DAILY SPIRONOLACTONE 25 MG TABLET TAKE 1 TABLET DAILY ATORVASTATIN 10 MG TABLET TAKE 1 TABLET DAILY CARVEDILOL 25 MG TABLET TAKE 1 TABLET TWICE A DAY INSULIN GLARGINE (U-100) 100 * Inject 21 Units subcutaneousl* FLUTICASONE 50 MCG/ACTUATION * Use 2 Sprays in each nostril * daPulse ULTRA TEST STRIPS USE TO TEST BLOOD SUGAR THREE* LANCETS Test blood sugar(s) 3 times d* BLOOD-GLUCOSE METER KIT 1 Each as needed. REPAGLINIDE 2 MG TABLET Take 1-2 tablets each meal Patient taking differently: Take 1-2 tablets three times * INSULIN SYRINGE-NEEDLE U-100 * Use 1 syringe for each dose 1* PEN NEEDLE, DIABETIC 31 GAUGE* Use one needle per dose. 1 pe* Problem List As Of Date 05/26/2018 Noted Resolved Pure hypercholesterolemia [E78.00] Priority: A Diabetes mellitus (HCC) [E11.9] 08/16/2016 Priority: Moderate More... Essential hypertension, benign [I10] Priority: B Unspecified disorder of joint [719.9] 11/23/2016 More... 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 Cardiomyopathy, nonischemic [I42.8] INVALID FOR* Abnormality of gait [R26.9] INVALID FOR* DM (diabetes mellitus), type 2, uncontrolled w/*INVALID FOR*12/21/2015 Chronic nausea [R11.0] INVALID FOR*09/01/2015 Ganglion cyst of right foot [M67.471] INVALID FOR* ICD (implantable cardioverter-defibrillator) in*INVALID FOR*08/16/2016 Biventricular ICD (implantable cardioverter-def*INVALID FOR* Uncontrolled type 2 diabetes mellitus with diab*INVALID FOR* More... Neuropathy (HCC) [G62.9] INVALID FOR*08/16/2016 Restless leg syndrome [G25.81] INVALID FOR* Peroneal tendinitis [M76.70] INVALID FOR* Pain in joint, ankle and foot [M25.579] INVALID FOR* Nonallergic rhinitis [J31.0] INVALID FOR* Encounter Status:Closed by IRNEA BRANDT MA on 05/26/18 [place] Observed: 05/21/2018 Status: COMPLETED Source: [place] 3:00 PM [facility] REPOSITORY Office Visit (PODIMM) MICHELLE JULES ([id number]) 1965 F Date Time Provider Department 05/21/18 3:00 PM YESENIA LOWE PODIMM During your visit today, we recorded the following information about you: Yesenia Lowe DPM 05/21/2018 6:34 PM Signed Follow up podiatric office visit: This 52 year old diabetic presents for follow up of b/l foot bursitis. 5/10 pain. L side continues to be uncomfortable despite wearing diabetic shoes and offloading insoles. Feels larger and basilio. These lesions continue to come back despite surgical excision b/l. Can't get MRI secondary to defibrillator. + diabetes. +hx of infections and slow healing wounds. Sugar 241 mg/dL this am. PAIN EVALUATION No data found. Hemoglobin A1C Date Value 03/24/2018 9.3 01/14/2018 8.0 % 09/23/2017 7.2 % ) PAST MEDICAL HISTORY Diagnosis Date - Anxiety disorder in conditions classified elsewhere - Arthritis left knee with spur - Cardiomyopathy, nonischemic (HCC) 04/2013 - Degenerative joint disease involving multiple joints shoulders, right knee - Essential hypertension, benign - Family history of colon cancer 5y screening cycle - GERD (gastroesophageal reflux disease) - History of placement of internal cardiac defibrillator 09/03/2013 - Neuropathy (HCC) 02/09/2016 - Obesity, unspecified - Pure hypercholesterolemia - Restless leg syndrome 02/09/2016 - Snoring - Type II or unspecified type diabetes mellitus without mention of complication, not stated as uncontrolled - Vitamin D deficiency Current Outpatient Prescriptions: cetirizine (ZYRTEC) 10 mg tablet Take 1 tablet by mouth once daily as needed (for itching, sneezing or runny nose). amoxicillin-clavulanic acid (AUGMENTIN) 875-125 mg per tablet Take 1 tablet by mouth twice daily. fexofenadine (JASVIR ALLERGY) 180 mg tablet Take 1 tablet by mouth once daily. azelastine (ASTELIN,ASTEPRO) 0.1% nasal spray Use 1-2 Sprays in each nostril twice daily as needed. sertraline (ZOLOFT) 50 mg tablet Take 1 tablet by mouth once daily. Take 1/2 tab once a day orally for one week then 1 tab once a day fluticasone (FLONASE) 50 mcg/actuation nasal spray Use 2 Sprays in each nostril once daily. pantoprazole DR (PROTONIX) 40 mg tablet TAKE 1 TABLET BY MOUTH TWICE DAILY Blood-Glucose Meter (Jiva TechnologyUCH ULTRA2) monitoring kit 1 Each as needed. insulin lispro (ADMELOG SOLOSTAR U-100 INSULIN) 100 unit/mL inpn Inject subcutaneously three times daily before meals. Take 1 unit when blood sugar is above 200 or higher. BJ CHRISS oxybutynin ER (DITROPAN XL) 15 mg 24 hr Extended Rel Tab TAKE 1 TABLET BY MOUTH DAILY triamcinolone acetonide (KENALOG) 0.1 % ointment APPLY TO AFFECTED AREA(S) ON LEGS TWICE A DAY NEEDED *USE 2 WEEKS ON, 1 WEEK OFF *NOT FOR FACE, ARMPITS aspirin, enteric coated (ECOTRIN LOW STRENGTH) 81 mg EC tablet Take 1 tablet by mouth once daily. loratadine (CLARITIN) 10 mg tablet Take 1 tablet by mouth once daily. alogliptin 25 mg tab Take 1 tablet by mouth once daily. Pramipexole 0.75 mg tablet Take 1 tablet by mouth daily at bedtime. magnesium oxide (MAG-OX) 400 mg tablet Take 1 tablet by mouth twice daily. enalapril (VASOTEC) 2.5 mg tablet Take 1 tablet by mouth once daily. furosemide (LASIX) 40 mg tablet TAKE 1 TABLET DAILY spironolactone (ALDACTONE) 25 mg tablet TAKE 1 TABLET DAILY atorvastatin (LIPITOR) 10 mg tablet TAKE 1 TABLET DAILY carvedilol (COREG) 25 mg tablet TAKE 1 TABLET TWICE A DAY insulin glargine (BASAGLAR KWIKPEN) 100 unit/mL (3 mL) inpn Inject 21 Units subcutaneously every evening. fluticasone (FLONASE) 50 mcg/actuation nasal spray Use 2 Sprays in each nostril once daily. ONETOUCH ULTRA TEST test strip USE TO TEST BLOOD SUGAR THREE TIMES A DAY Lancets lancets Test blood sugar(s) 3 times daily. Blood-Glucose Meter (FREESTYLE SYSTEM KIT) monitoring kit 1 Each as needed. repaglinide (PRANDIN) 2 mg tablet Take 1-2 tablets each meal (Patient taking differently: Take 1-2 tablets three times daily before meal) Insulin Syringe-Needle U-100 (INSULIN SYRINGE) 1/2 mL 30 x 5/16 syrg Use 1 syringe for each dose 1/day insulin needles, DISPOSABLE, (PEN NEEDLE) 31 gauge x 5/16 ndle Use one needle per dose. 1 per day. No current facility-administered medications for this visit. ALLERGIES Allergen Reactions - Adhesive Tape (Natty* Itching - Latex Rash Negative to skin testing - Simvastatin Other: See Comments myalgia Objective: Constitutional: Pt is a well developed 52 year old female who is alert, oriented, cooperative and in no apparent distress. Eyes: Following during examination. No redness or drainage. Respiratory: RR normal and nonlabored. Even breathing. No evidence of distress. Psychology: Patient is engaged during conversation. Normal affect and mood. Does not appear depressed or anxious. Palpable DP and PT pulses. Protective and vibratory sensation intact. Nails 1-5 b/l are within normal limits. Negative maceration to webspaces with negative openings in skin noted b/l. No ulcerations, lesions or rashes noted. Hyperkeratosis not seen. Prominent, tender 5th met base b/l with swelling and tenderness plantar foot. L foot 4.5 cm x 4.0 5th met base. R foot 4 cm x 3 cm 5th met base. No redness or warmth. No drainage. No lymphadenopathy. No lymphangitis. Patient has no pain to palpation of L calf. Negative Campos's test. Prior surgical pathology L foot: 1. Soft tissue, left foot, excision (A) - Benign lobulated adipose tissue with fibrosis and reactive changes. 1. Soft tissue, right plantar foot lesion, excision (A) - Consistent with ganglion cyst. Assessment: Bursitis b/l 5th metatarsal base? Hx of ganglion cyst excision R foot and benign adipose tissue with fibrosis L foot. Controlled DM II Cardiomyopathy Can't take NSAID Plan: History and physical examination done today. Discussed options with patient today. Continue offloading. US bilateral ordered today to evaluate masses to ensure still consistent with benign lesion. Patient cannot get MRI. RTC 6 months. Will let her know if anything concerning on US. JACEY Abdul Ma 05/21/2018 3:07 PM Signed Patient presents with: Follow Up: lt foot plantar mass Referring Provider: YESENIA LOWE [[id number]] Allergies As of Date: 05/21/2018 Noted Allergy Reaction ADHESIVE TAPE (ROSINS) 03/27/2006 9 - Itching LATEX 01/10/2011 2 - Rash Comments: Negative to skin testing SIMVASTATIN 11/04/2012 14 - Other: See Comments Comments: myalgia Date Reviewed: 05/21/2018 Reviewed by: Georgette Nicholson Ma - Fully Assessed Reason for Visit: Follow Up [171] Cmt: lt foot plantar mass Primary Visit Diagnosis:Bursitis of right foot [M77.51] Other Visit Diagnoses:Bursitis of left foot [M77.52] Soft tissue mass [M79.9] Order(s):US FOOT LT [[id number]] Order #: [id number] FUTURE US FOOT RT [[id number]] Order #: [id number] FUTURE Prescriptions as of 05/21/2018 Sig: CETIRIZINE 10 MG TABLET Take 1 tablet by mouth once d* AMOXICILLIN 875 MG-POTASSIUM * Take 1 tablet by mouth twice * FEXOFENADINE 180 MG TABLET Take 1 tablet by mouth once d* AZELASTINE 137 MCG (0.1 %) NA* Use 1-2 Sprays in each nostri* SERTRALINE 50 MG TABLET Take 1 tablet by mouth once d* FLUTICASONE 50 MCG/ACTUATION * Use 2 Sprays in each nostril * PANTOPRAZOLE 40 MG TABLET,DEL* TAKE 1 TABLET BY MOUTH TWICE * BLOOD-GLUCOSE METER KIT 1 Each as needed. INSULIN LISPRO (U-100) 100 UN* Inject subcutaneously three t* OXYBUTYNIN CHLORIDE ER 15 MG * TAKE 1 TABLET BY MOUTH DAILY TRIAMCINOLONE ACETONIDE 0.1 %* APPLY TO AFFECTED AREA(S) ON * ASPIRIN 81 MG TABLET,DELAYED * Take 1 tablet by mouth once d* LORATADINE 10 MG TABLET Take 1 tablet by mouth once d* Patient not taking: Reported on 05/21/2018 ALOGLIPTIN 25 MG TABLET Take 1 tablet by mouth once d* PRAMIPEXOLE 0.75 MG TABLET Take 1 tablet by mouth daily * MAGNESIUM OXIDE 400 MG (241.3* Take 1 tablet by mouth twice * ENALAPRIL MALEATE 2.5 MG TABL* Take 1 tablet by mouth once d* FUROSEMIDE 40 MG TABLET TAKE 1 TABLET DAILY SPIRONOLACTONE 25 MG TABLET TAKE 1 TABLET DAILY ATORVASTATIN 10 MG TABLET TAKE 1 TABLET DAILY CARVEDILOL 25 MG TABLET TAKE 1 TABLET TWICE A DAY INSULIN GLARGINE (U-100) 100 * Inject 21 Units subcutaneousl* FLUTICASONE 50 MCG/ACTUATION * Use 2 Sprays in each nostril * ONETOUCH ULTRA TEST STRIPS USE TO TEST BLOOD SUGAR THREE* LANCETS Test blood sugar(s) 3 times d* BLOOD-GLUCOSE METER KIT 1 Each as needed. REPAGLINIDE 2 MG TABLET Take 1-2 tablets each meal Patient taking differently: Take 1-2 tablets three times * INSULIN SYRINGE-NEEDLE U-100 * Use 1 syringe for each dose 1* PEN NEEDLE, DIABETIC 31 GAUGE* Use one needle per dose. 1 pe* Problem List As Of Date 05/21/2018 Noted Resolved Pure hypercholesterolemia [E78.00] Priority: A Diabetes mellitus (HCC) [E11.9] 08/16/2016 Priority: Moderate More... Essential hypertension, benign [I10] Priority: B Unspecified disorder of joint [719.9] 11/23/2016 More... 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 Cardiomyopathy, nonischemic [I42.8] INVALID FOR* Abnormality of gait [R26.9] INVALID FOR* DM (diabetes mellitus), type 2, uncontrolled w/*INVALID FOR*12/21/2015 Chronic nausea [R11.0] INVALID FOR*09/01/2015 Ganglion cyst of right foot [M67.471] INVALID FOR* ICD (implantable cardioverter-defibrillator) in*INVALID FOR*08/16/2016 Biventricular ICD (implantable cardioverter-def*INVALID FOR* Uncontrolled type 2 diabetes mellitus with diab*INVALID FOR* More... Neuropathy (HCC) [G62.9] INVALID FOR*08/16/2016 Restless leg syndrome [G25.81] INVALID FOR* Peroneal tendinitis [M76.70] INVALID FOR* Pain in joint, ankle and foot [M25.579] INVALID FOR* Nonallergic rhinitis [J31.0] INVALID FOR* Visit Notes: >> Georgette Nicholson Ma SatMay 21, 2018 3:07 PM Status: Signed Patient presents with: Follow Up: lt foot plantar mass Encounter Status:Closed by YESENIA LOWE DPM on 05/21/18 PROGRESS Observed: 05/21/2018 Status: COMPLETED Source: [place] 2:54 PM [facility] REPOSITORY HNO ID: [id number] Author: Yesenia Lowe Service: (none) Author Type: Physician Type: Progress Notes Filed: 05/21/2018 6:34 PM Note Text: Follow up podiatric office visit: This 52 year old diabetic presents for follow up of b/l foot bursitis. 5/10 pain. L side continues to be uncomfortable despite wearing diabetic shoes and offloading insoles. Feels larger and basilio. These lesions continue to come back despite surgical excision b/l. Can't get MRI secondary to defibrillator. + diabetes. +hx of infections and slow healing wounds. Sugar 241 mg/dL this am. PAIN EVALUATION No data found. Hemoglobin A1C Date Value 03/24/2018 9.3 01/14/2018 8.0 % 09/23/2017 7.2 % ) PAST MEDICAL HISTORY Diagnosis Date - Anxiety disorder in conditions classified elsewhere - Arthritis left knee with spur - Cardiomyopathy, nonischemic (HCC) 04/2013 - Degenerative joint disease involving multiple joints shoulders, right knee - Essential hypertension, benign - Family history of colon cancer 5y screening cycle - GERD (gastroesophageal reflux disease) - History of placement of internal cardiac defibrillator 09/03/2013 - Neuropathy (HCC) 02/09/2016 - Obesity, unspecified - Pure hypercholesterolemia - Restless leg syndrome 02/09/2016 - Snoring - Type II or unspecified type diabetes mellitus without mention of complication, not stated as uncontrolled - Vitamin D deficiency Current Outpatient Prescriptions: cetirizine (ZYRTEC) 10 mg tablet Take 1 tablet by mouth once daily as needed (for itching, sneezing or runny nose). amoxicillin-clavulanic acid (AUGMENTIN) 875-125 mg per tablet Take 1 tablet by mouth twice daily. fexofenadine (JASVIR ALLERGY) 180 mg tablet Take 1 tablet by mouth once daily. azelastine (ASTELIN,ASTEPRO) 0.1% nasal spray Use 1-2 Sprays in each nostril twice daily as needed. sertraline (ZOLOFT) 50 mg tablet Take 1 tablet by mouth once daily. Take 1/2 tab once a day orally for one week then 1 tab once a day fluticasone (FLONASE) 50 mcg/actuation nasal spray Use 2 Sprays in each nostril once daily. pantoprazole DR (PROTONIX) 40 mg tablet TAKE 1 TABLET BY MOUTH TWICE DAILY Blood-Glucose Meter (ONETOUCH ULTRA2) monitoring kit 1 Each as needed. insulin lispro (ADMELOG SOLOSTAR U-100 INSULIN) 100 unit/mL inpn Inject subcutaneously three times daily before meals. Take 1 unit when blood sugar is above 200 or higher. BJ CHRISS oxybutynin ER (DITROPAN XL) 15 mg 24 hr Extended Rel Tab TAKE 1 TABLET BY MOUTH DAILY triamcinolone acetonide (KENALOG) 0.1 % ointment APPLY TO AFFECTED AREA(S) ON LEGS TWICE A DAY NEEDED *USE 2 WEEKS ON, 1 WEEK OFF *NOT FOR FACE, ARMPITS aspirin, enteric coated (ECOTRIN LOW STRENGTH) 81 mg EC tablet Take 1 tablet by mouth once daily. loratadine (CLARITIN) 10 mg tablet Take 1 tablet by mouth once daily. alogliptin 25 mg tab Take 1 tablet by mouth once daily. Pramipexole 0.75 mg tablet Take 1 tablet by mouth daily at bedtime. magnesium oxide (MAG-OX) 400 mg tablet Take 1 tablet by mouth twice daily. enalapril (VASOTEC) 2.5 mg tablet Take 1 tablet by mouth once daily. furosemide (LASIX) 40 mg tablet TAKE 1 TABLET DAILY spironolactone (ALDACTONE) 25 mg tablet TAKE 1 TABLET DAILY atorvastatin (LIPITOR) 10 mg tablet TAKE 1 TABLET DAILY carvedilol (COREG) 25 mg tablet TAKE 1 TABLET TWICE A DAY insulin glargine (BASAGLAR KWIKPEN) 100 unit/mL (3 mL) inpn Inject 21 Units subcutaneously every evening. fluticasone (FLONASE) 50 mcg/actuation nasal spray Use 2 Sprays in each nostril once daily. ONETOUCH ULTRA TEST test strip USE TO TEST BLOOD SUGAR THREE TIMES A DAY Lancets lancets Test blood sugar(s) 3 times daily. Blood-Glucose Meter (FREESTYLE SYSTEM KIT) monitoring kit 1 Each as needed. repaglinide (PRANDIN) 2 mg tablet Take 1-2 tablets each meal (Patient taking differently: Take 1-2 tablets three times daily before meal) Insulin Syringe-Needle U-100 (INSULIN SYRINGE) 1/2 mL 30 x 5/16 syrg Use 1 syringe for each dose 1/day insulin needles, DISPOSABLE, (PEN NEEDLE) 31 gauge x 11/27 ndle Use one needle per dose. 1 per day. No current facility-administered medications for this visit. ALLERGIES Allergen Reactions - Adhesive Tape (Natty* Itching - Latex Rash Negative to skin testing - Simvastatin Other: See Comments myalgia Objective: Constitutional: Pt is a well developed 52 year old female who is alert, oriented, cooperative and in no apparent distress. Eyes: Following during examination. No redness or drainage. Respiratory: RR normal and nonlabored. Even breathing. No evidence of distress. Psychology: Patient is engaged during conversation. Normal affect and mood. Does not appear depressed or anxious. Palpable DP and PT pulses. Protective and vibratory sensation intact. Nails 1-5 b/l are within normal limits. Negative maceration to webspaces with negative openings in skin noted b/l. No ulcerations, lesions or rashes noted. Hyperkeratosis not seen. Prominent, tender 5th met base b/l with swelling and tenderness plantar foot. L foot 4.5 cm x 4.0 5th met base. R foot 4 cm x 3 cm 5th met base. No redness or warmth. No drainage. No lymphadenopathy. No lymphangitis. Patient has no pain to palpation of L calf. Negative Campos's test. Prior surgical pathology L foot: 1. Soft tissue, left foot, excision (A) - Benign lobulated adipose tissue with fibrosis and reactive changes. 1. Soft tissue, right plantar foot lesion, excision (A) - Consistent with ganglion cyst. Assessment: Bursitis b/l 5th metatarsal base? Hx of ganglion cyst excision R foot and benign adipose tissue with fibrosis L foot. Controlled DM II Cardiomyopathy Can't take NSAID Plan: History and physical examination done today. Discussed options with patient today. Continue offloading. US bilateral ordered today to evaluate masses to ensure still consistent with benign lesion. Patient cannot get MRI. RTC 6 months. Will let her know if anything concerning on US. Yesenia Lowe DPM PROGRESS Observed: 05/08/2018 Status: COMPLETED Source: [place] 4:42 PM [facility] [place] REPOSITORY HNO ID: [id number] Author: Justin Johnson Service: (none) Author Type: Physician Type: Progress Notes Filed: 05/08/2018 9:42 PM Note Text: Michelle Thomas is a 52 year old female with a history of nonallergic rhinitis, cough, GERD and hiatal hernia who presents for a follow-up visit. LUL was 04/01/18. Nasal congestion has improved somewhat with regular use of fluticasone nasal spray 2 sprays to each nostril BID. Notes PND and yellow rhinorrhea. Mild pressure behind her eyes. She continues to c/o nonproductive cough. Cough awakens her from sleep approx 3 nights per week. Denies wheezing, chest tightness or SOB. Continues to take Protonix BID with good control of her GERD sxs. To have knee surgery in mid-May (From initial visit on 04/01/18: Michelle Thomas is a 52 year old female who has symptoms of nasal congestion. Also with intermittent itchy eyes, clear rhinorrhea, sneezing, postnasal drip. Associated symptoms include cough . These symptoms are perennial with seasonal exacerbation in the summer. he patient has been suffering from these symptoms for several year(s). The patient has tried claritin with minimal relief of symptoms. Uses flonase as needed only. Triggers of her sxs include grass pollen and hay. She was on subcutaneous allergy immunotherapy several years ago with improvement in her symptoms. Denies systemic reactions due to immunotherapy. Of note, she is on carvedilol and has an implanted defibrillator in place due to a history of cardiomyopathy. She also complains of cough which is worse at night. This has been present for 2 months. She takes enalapril but has been on this medication since 2002. Denies a recent change in dose. The cough awakens her from sleep every night. She has intermittent daytime cough as well. Denies significant wheezing, chest tightness or shortness of breath. Denies a prior history of asthma. She has never used short acting beta agonists or other asthma medications. Denies a history of recurrent or chronic rhinosinusitis, nasal polyposis or nasal trauma. No prior imaging of the sinuses. No prior nasal or sinus surgery. 2 months ago, she developed vomiting and diarrhea shortly after ingesting oysters. No other symptoms. Denies subsequent ingestion of shellfish and mollusks. She takes Protonix 40 mg twice daily for GERD and hiatal hernia. EGD was completed in 2016. She complains of developing an itchy rash associated with use of latex gloves and Band-Aids. Denies complications during prior medical or dental procedures. 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 Denies symptoms with ingestion of avocado, banana, chestnut and kiwi. REVIEW OF SYSTEMS: Negative for fevers, chills, night sweats and unintentional weight loss. Negative for skin rash and skin lesions ROS negative except for those listed above. PAST MEDICAL HISTORY Diagnosis Date - Anxiety disorder in conditions classified elsewhere - Arthritis left knee with spur - Cardiomyopathy, nonischemic (HCC) 04/2013 - Degenerative joint disease involving multiple joints shoulders, right knee - Essential hypertension, benign - Family history of colon cancer 5y screening cycle - GERD (gastroesophageal reflux disease) - History of placement of internal cardiac defibrillator 09/03/2013 - Neuropathy ([facility]) 02/09/2016 - Obesity, unspecified - Pure hypercholesterolemia - Restless leg syndrome 02/09/2016 - Snoring - Type II or unspecified type diabetes mellitus without mention of complication, not stated as uncontrolled - Vitamin D deficiency MEDICATIONS: sertraline (ZOLOFT) 50 mg tablet Take 1 tablet by mouth once daily. Take 1/2 tab once a day orally for one week then 1 tab once a day fluticasone (FLONASE) 50 mcg/actuation nasal spray Use 2 Sprays in each nostril once daily. pantoprazole DR (PROTONIX) 40 mg tablet TAKE 1 TABLET BY MOUTH TWICE DAILY Blood-Glucose Meter (ONETOUCH ULTRA2) monitoring kit 1 Each as needed. insulin lispro (ADMELOG SOLOSTAR U-100 INSULIN) 100 unit/mL inpn Inject subcutaneously three times daily before meals. Take 1 unit when blood sugar is above 200 or higher. DANITZA PAYNE oxybutynin ER (DITROPAN XL) 15 mg 24 hr Extended Rel Tab TAKE 1 TABLET BY MOUTH DAILY triamcinolone acetonide (KENALOG) 0.1 % ointment APPLY TO AFFECTED AREA(S) ON LEGS TWICE A DAY NEEDED *USE 2 WEEKS ON, 1 WEEK OFF *NOT FOR FACE, ARMPITS aspirin, enteric coated (ECOTRIN LOW STRENGTH) 81 mg EC tablet Take 1 tablet by mouth once daily. loratadine (CLARITIN) 10 mg tablet Take 1 tablet by mouth once daily. Pramipexole 0.75 mg tablet Take 1 tablet by mouth daily at bedtime. magnesium oxide (MAG-OX) 400 mg tablet Take 1 tablet by mouth twice daily. enalapril (VASOTEC) 2.5 mg tablet Take 1 tablet by mouth once daily. furosemide (LASIX) 40 mg tablet TAKE 1 TABLET DAILY spironolactone (ALDACTONE) 25 mg tablet TAKE 1 TABLET DAILY atorvastatin (LIPITOR) 10 mg tablet TAKE 1 TABLET DAILY carvedilol (COREG) 25 mg tablet TAKE 1 TABLET TWICE A DAY insulin glargine (BASAGLAR KWIKPEN) 100 unit/mL (3 mL) inpn Inject 21 Units subcutaneously every evening. daPulse ULTRA TEST test strip USE TO TEST BLOOD SUGAR THREE TIMES A DAY Lancets lancets Test blood sugar(s) 3 times daily. Blood-Glucose Meter (TSSI SystemsSTYLE SYSTEM KIT) monitoring kit 1 Each as needed. repaglinide (PRANDIN) 2 mg tablet Take 1-2 tablets each meal Insulin Syringe-Needle U-100 (INSULIN SYRINGE) 1/2 mL 30 x 5/16 syrg Use 1 syringe for each dose 1/day insulin needles, DISPOSABLE, (PEN NEEDLE) 31 gauge x 5/16 ndle Use one needle per dose. 1 per day. amoxicillin-clavulanic acid (AUGMENTIN) 875-125 mg per tablet Take 1 tablet by mouth twice daily. fexofenadine (JASVIR ALLERGY) 180 mg tablet Take 1 tablet by mouth once daily. azelastine (ASTELIN,ASTEPRO) 0.1% nasal spray Use 1-2 Sprays in each nostril twice daily as needed. alogliptin 25 mg tab Take 1 tablet by mouth once daily. fluticasone (FLONASE) 50 mcg/actuation nasal spray Use 2 Sprays in each nostril once daily. ALLERGIES: Allergies As of Date: 05/08/2018 Allergen Noted Reaction ADHESIVE TAPE (ROSINS) 03/27/2006 Itching LATEX 01/10/2011 Rash SIMVASTATIN 11/04/2012 Other: See Comments Fully Assessed 05/08/2018 PAST SURGICAL HISTORY Procedure Laterality Date - APPENDECTOMY 2006 - COLONOSCOP W/ OR W/O BRS SPEC 10/08/06 - COLONOSCOP W/ OR W/O BRSH SPEC 09/18/2011 Colonoscopy - COLONOSCOP W/ OR W/O BRS SPEC 09/27/2016 Colonoscopy - DESTR LES BENIGN/ PREMAL 7/25/12 Ablation anal condyomata - EGD 09-01-15 - INSERT DUAL CHAMBER ICD 09/03/13 pacemaker/defibulator - KNEE SCOPE,DIAGNOSTIC right - LAPAROSCOPY, SURGICAL, APPENDECTOMY 10/22/06 - PAST SURGICAL HISTORY OF Right 11- ganglion cyst - PAST SURGICAL HISTORY OF Left 2016 cyst removed from left foot - REMOVEANDREPLACE ICD PULSE GEN 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 Asthma: no. Eczema: no. Cystic fibrosis: no. Immunodeficiency: no. 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 Age of home: 40 years Heating: [employer] Woodburning fireplace in the home: no Air conditioning: Central air Basement: No basement Ortiz: [id number] carpeting Dust mite controls: Dust mite controls are not in place. Pets in the home: 2 dogs Outdoor animals: There are no outdoor animals Tobacco smoke: No exposure in the home. Physical Exam: GENERAL APPEARANCE:Well appearing, alert, in no acute distress, well-hydrated, well nourished. Obese. HEENT: NCAT. EYES: conjunctiva and sclera normal. EARS: External ears normal. Canals clear. TM's normal. NOSE/SINUS:mild edema of the nasal mucosa . Purulent secretions noted in R naris THROAT: no erythema NECK:neck supple, no adenopathy HEART:RRR with normal S1 and S2 ,no murmurs, no gallops, no rubs LUNGS: clear to auscultation bilaterally, no wheezes, rales or rhonchi ABDOMEN:soft, nontender, nondistended, without organomegaly or palpable masses EXTREMITIES:Extremities normal, No deformities, No skin discoloration and No edema SKIN: Skin color, texture, turgor normal. No rashes or lesions. ALLERGY SKIN TESTS on 04/01/18:Negative to inhalants, latex, shellfish and mollusks FAHAD on 05/08/18: normal FeNO on 05/08/18: 7 ppb (normal) ASSESSMENT/PLAN: 1.) Sinusitis: Augmentin x 10 days 2.) Nonallergic Rhinitis Start astelin 2 sprays to each nostril twice a day as needed Continue regular use of fluticasone nasal spray 2 sprays each nostril twice daily. Start jasvir 180 mg once daily as needed for itching, sneezing or runny nose. (D/C claritin) 3.) Toxic effect latex: Latex skin tests were negative at her initial visit. A latex specific IgE level will be obtained to evaluate further for possible severe, immediate, IgE?mediated latex hypersensitivity. 4.) Adverse reaction food: Allergy skin tests to shellfish and mollusks were negative at her initial visit. Patient is at low risk for a severe, immediate, IgE?mediated reaction to shellfish and mollusks. 5.) Discussed medication dosage, usage, side effects, and goals of treatment in detail. 6 ) Follow-up in 1 month - patient will return sooner should new symptoms or problems arise. If sxs persist, a CT sinus may be warranted at that time. Justin Johnson MD CNOV Observed: 05/08/2018 Status: COMPLETED Source: [place] 1:30 PM [facility] REPOSITORY Office Visit (MARY) MICHELLE JULES ([id number]) 1965 F Date Time Provider Department 05/08/18 1:30 PM JUSTIN JOHNSON During your visit today, we recorded the following information about you: Pulse Blood pressure Weight 70/minute 120/68 101.2 kg Caron Robles RN 05/08/2018 1:21 PM Signed patient here for follow up visit. Reports still coughing. Taking Flonase twice daily and Claritin once daily. Justin Johnson MD 05/08/2018 1:56 PM Signed Take augmentin one tablet twice a day for 10 days Take fexofenadine/jasvir 180 mg once a day as needed for itching, sneezing or runny nose. This will replace loratidine/claritin. Continue fluticasone nasal spray 2 sprays to each nostril twice a day Use azelastine nasal spray 1-2 sprays to each nostril twice a day as needed Justin Johnson MD 05/08/2018 9:42 PM Signed Michelle Thomas is a 52 year old female with a history of nonallergic rhinitis, cough, GERD and hiatal hernia who presents for a follow-up visit. LUL was 04/01/18. Nasal congestion has improved somewhat with regular use of fluticasone nasal spray 2 sprays to each nostril BID. Notes PND and yellow rhinorrhea. Mild pressure behind her eyes. She continues to c/o nonproductive cough. Cough awakens her from sleep approx 3 nights per week. Denies wheezing, chest tightness or SOB. Continues to take Protonix BID with good control of her GERD sxs. To have knee surgery in mid-May (From initial visit on 04/01/18: Michelle Thomas is a 52 year old female who has symptoms of nasal congestion. Also with intermittent itchy eyes, clear rhinorrhea, sneezing, postnasal drip. Associated symptoms include cough . These symptoms are perennial with seasonal exacerbation in the summer. he patient has been suffering from these symptoms for several year(s). The patient has tried claritin with minimal relief of symptoms. Uses flonase as needed only. Triggers of her sxs include grass pollen and hay. She was on subcutaneous allergy immunotherapy several years ago with improvement in her symptoms. Denies systemic reactions due to immunotherapy. Of note, she is on carvedilol and has an implanted defibrillator in place due to a history of cardiomyopathy. She also complains of cough which is worse at night. This has been present for 2 months. She takes enalapril but has been on this medication since 2002. Denies a recent change in dose. The cough awakens her from sleep every night. She has intermittent daytime cough as well. Denies significant wheezing, chest tightness or shortness of breath. Denies a prior history of asthma. She has never used short acting beta agonists or other asthma medications. Denies a history of recurrent or chronic rhinosinusitis, nasal polyposis or nasal trauma. No prior imaging of the sinuses. No prior nasal or sinus surgery. 2 months ago, she developed vomiting and diarrhea shortly after ingesting oysters. No other symptoms. Denies subsequent ingestion of shellfish and mollusks. She takes Protonix 40 mg twice daily for GERD and hiatal hernia. EGD was completed in 2016. She complains of developing an itchy rash associated with use of latex gloves and Band-Aids. Denies complications during prior medical or dental procedures. 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 Denies symptoms with ingestion of avocado, banana, chestnut and kiwi. REVIEW OF SYSTEMS: Negative for fevers, chills, night sweats and unintentional weight loss. Negative for skin rash and skin lesions ROS negative except for those listed above. PAST MEDICAL HISTORY Diagnosis Date - Anxiety disorder in conditions classified elsewhere - Arthritis left knee with spur - Cardiomyopathy, nonischemic (HCC) 04/2013 - Degenerative joint disease involving multiple joints shoulders, right knee - Essential hypertension, benign - Family history of colon cancer 5y screening cycle - GERD (gastroesophageal reflux disease) - History of placement of internal cardiac defibrillator 09/03/2013 - Neuropathy ([facility]) 02/09/2016 - Obesity, unspecified - Pure hypercholesterolemia - Restless leg syndrome 02/09/2016 - Snoring - Type II or unspecified type diabetes mellitus without mention of complication, not stated as uncontrolled - Vitamin D deficiency MEDICATIONS: sertraline (ZOLOFT) 50 mg tablet Take 1 tablet by mouth once daily. Take 1/2 tab once a day orally for one week then 1 tab once a day fluticasone (FLONASE) 50 mcg/actuation nasal spray Use 2 Sprays in each nostril once daily. pantoprazole DR (PROTONIX) 40 mg tablet TAKE 1 TABLET BY MOUTH TWICE DAILY Blood-Glucose Meter ([employer] Technology[employer]CH ULTRA2) monitoring kit 1 Each as needed. insulin lispro (ADMELOG SOLOSTAR U-100 INSULIN) 100 unit/mL inpn Inject subcutaneously three times daily before meals. Take 1 unit when blood sugar is above 200 or higher. BJ SHOOK oxybutynin ER (DITROPAN XL) 15 mg 24 hr Extended Rel Tab TAKE 1 TABLET BY MOUTH DAILY triamcinolone acetonide (KENALOG) 0.1 % ointment APPLY TO AFFECTED AREA(S) ON LEGS TWICE A DAY NEEDED *USE 2 WEEKS ON, 1 WEEK OFF *NOT FOR FACE, ARMPITS aspirin, enteric coated (ECOTRIN LOW STRENGTH) 81 mg EC tablet Take 1 tablet by mouth once daily. loratadine (CLARITIN) 10 mg tablet Take 1 tablet by mouth once daily. Pramipexole 0.75 mg tablet Take 1 tablet by mouth daily at bedtime. magnesium oxide (MAG-OX) 400 mg tablet Take 1 tablet by mouth twice daily. enalapril (VASOTEC) 2.5 mg tablet Take 1 tablet by mouth once daily. furosemide (LASIX) 40 mg tablet TAKE 1 TABLET DAILY spironolactone (ALDACTONE) 25 mg tablet TAKE 1 TABLET DAILY atorvastatin (LIPITOR) 10 mg tablet TAKE 1 TABLET DAILY carvedilol (COREG) 25 mg tablet TAKE 1 TABLET TWICE A DAY insulin glargine (BASAGLAR KWIKPEN) 100 unit/mL (3 mL) inpn Inject 21 Units subcutaneously every evening. ONETOUCH ULTRA TEST test strip USE TO TEST BLOOD SUGAR THREE TIMES A DAY Lancets lancets Test blood sugar(s) 3 times daily. Blood-Glucose Meter (FREESTYLE SYSTEM KIT) monitoring kit 1 Each as needed. repaglinide (PRANDIN) 2 mg tablet Take 1-2 tablets each meal Insulin Syringe-Needle U-100 (INSULIN SYRINGE) 1/2 mL 30 x 5/16 syrg Use 1 syringe for each dose 1/day insulin needles, DISPOSABLE, (PEN NEEDLE) 31 gauge x 5/16 ndle Use one needle per dose. 1 per day. amoxicillin-clavulanic acid (AUGMENTIN) 875-125 mg per tablet Take 1 tablet by mouth twice daily. fexofenadine (JASVIR ALLERGY) 180 mg tablet Take 1 tablet by mouth once daily. azelastine (ASTELIN,ASTEPRO) 0.1% nasal spray Use 1-2 Sprays in each nostril twice daily as needed. alogliptin 25 mg tab Take 1 tablet by mouth once daily. fluticasone (FLONASE) 50 mcg/actuation nasal spray Use 2 Sprays in each nostril once daily. ALLERGIES: Allergies As of Date: 05/08/2018 Allergen Noted Reaction ADHESIVE TAPE (ROSINS) 03/27/2006 Itching LATEX 01/10/2011 Rash SIMVASTATIN 11/04/2012 Other: See Comments Fully Assessed 05/08/2018 PAST SURGICAL HISTORY Procedure Laterality Date - APPENDECTOMY 2006 - COLONOSCOP W/ OR W/O BRSH SPEC 10/08/06 - COLONOSCOP W/ OR W/O BRSH SPEC 09/18/2011 Colonoscopy - COLONOSCOP W/ OR W/O BRSH SPEC 09/27/2016 Colonoscopy - DESTR LES BENIGN/ PREMAL 02/06/12 Ablation anal condyomata - EGD 09-01-15 - INSERT DUAL CHAMBER ICD 09/03/13 pacemaker/defibulator - KNEE SCOPE,DIAGNOSTIC right - LAPAROSCOPY, SURGICAL, APPENDECTOMY 10/22/06 - PAST SURGICAL HISTORY OF Right -14 ganglion cyst - PAST SURGICAL HISTORY OF Left 2016 cyst removed from left foot - REMOVEANDREPLACE ICD PULSE GEN MULTI LEAD 03/12/2018 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 Asthma: no. Eczema: no. Cystic fibrosis: no. Immunodeficiency: no. 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 Age of home: 40 years Heating: propane Woodburning fireplace in the home: no Air conditioning: Central air Basement: No basement Ortiz: [employer] carpeting Dust mite controls: Dust mite controls are not in place. Pets in the home: 2 dogs Outdoor animals: There are no outdoor animals Tobacco smoke: No exposure in the home. Physical Exam: GENERAL APPEARANCE:Well appearing, alert, in no acute distress, well-hydrated, well nourished. Obese. HEENT: NCAT. EYES: conjunctiva and sclera normal. EARS: External ears normal. Canals clear. TM's normal. NOSE/SINUS:mild edema of the nasal mucosa . Purulent secretions noted in R naris THROAT: no erythema NECK:neck supple, no adenopathy HEART:RRR with normal S1 and S2 ,no murmurs, no gallops, no rubs LUNGS: clear to auscultation bilaterally, no wheezes, rales or rhonchi ABDOMEN:soft, nontender, nondistended, without organomegaly or palpable masses EXTREMITIES:Extremities normal, No deformities, No skin discoloration and No edema SKIN: Skin color, texture, turgor normal. No rashes or lesions. ALLERGY SKIN TESTS on 04/01/18:Negative to inhalants, latex, shellfish and mollusks FAHAD on 05/08/18: normal FeNO on 05/08/18: 7 ppb (normal) ASSESSMENT/PLAN: 1.) Sinusitis: Augmentin x 10 days 2.) Nonallergic Rhinitis Start astelin 2 sprays to each nostril twice a day as needed Continue regular use of fluticasone nasal spray 2 sprays each nostril twice daily. Start jasvir 180 mg once daily as needed for itching, sneezing or runny nose. (D/C claritin) 3.) Toxic effect latex: Latex skin tests were negative at her initial visit. A latex specific IgE level will be obtained to evaluate further for possible severe, immediate, IgE?mediated latex hypersensitivity. 4.) Adverse reaction food: Allergy skin tests to shellfish and mollusks were negative at her initial visit. Patient is at low risk for a severe, immediate, IgE?mediated reaction to shellfish and mollusks. 5.) Discussed medication dosage, usage, side effects, and goals of treatment in detail. 6 ) Follow-up in 1 month - patient will return sooner should new symptoms or problems arise. If sxs persist, a CT sinus may be warranted at that time. Justin Johnson MD Referring Provider: MELLO DING [[id number]] Allergies As of Date: 05/08/2018 Noted Allergy Reaction ADHESIVE TAPE (ROSINS) 03/27/2006 9 - Itching LATEX 01/10/2011 2 - Rash Comments: Negative to skin testing SIMVASTATIN 11/04/2012 14 - Other: See Comments Comments: myalgia Date Reviewed: 05/08/2018 Reviewed by: Justin Johnson - Fully Assessed Reason for Visit: New Patient [172] Cmt: allergy consult Primary Visit Diagnosis:Nonallergic rhinitis [J31.0] Other Visit Diagnoses:Acute maxillary sinusitis, recurrence not specified [J01.00] Cough [R05] Toxic effect of latex, accidental (unintentional), subsequent encounter [T65.811H] Order(s):amoxicillin-clavulanic acid (AUGMENTIN) 875-125 mg per tabletTake 1 tablet by mouth twice daily.Disp: 20 tabletRfl: 0 fexofenadine (JASVIR ALLERGY) 180 mg tabletTake 1 tablet by mouth once daily.Disp: 30 tabletRfl: 11 azelastine (ASTELIN,ASTEPRO) 0.1% nasal sprayUse 1-2 Sprays in each nostril twice daily as needed.Disp: 1 BottleRfl: 11 ALGN LATEX IGE [SQLATEXA] Order #: [id number] FUTURE Prescriptions as of 05/08/2018 Sig: SERTRALINE 50 MG TABLET Take 1 tablet by mouth once d* FLUTICASONE 50 MCG/ACTUATION * Use 2 Sprays in each nostril * PANTOPRAZOLE 40 MG TABLET,DEL* TAKE 1 TABLET BY MOUTH TWICE * BLOOD-GLUCOSE METER KIT 1 Each as needed. INSULIN LISPRO (U-100) 100 UN* Inject subcutaneously three t* OXYBUTYNIN CHLORIDE ER 15 MG * TAKE 1 TABLET BY MOUTH DAILY TRIAMCINOLONE ACETONIDE 0.1 %* APPLY TO AFFECTED AREA(S) ON * ASPIRIN 81 MG TABLET,DELAYED * Take 1 tablet by mouth once d* LORATADINE 10 MG TABLET Take 1 tablet by mouth once d* PRAMIPEXOLE 0.75 MG TABLET Take 1 tablet by mouth daily * MAGNESIUM OXIDE 400 MG (241.3* Take 1 tablet by mouth twice * ENALAPRIL MALEATE 2.5 MG TABL* Take 1 tablet by mouth once d* FUROSEMIDE 40 MG TABLET TAKE 1 TABLET DAILY SPIRONOLACTONE 25 MG TABLET TAKE 1 TABLET DAILY ATORVASTATIN 10 MG TABLET TAKE 1 TABLET DAILY CARVEDILOL 25 MG TABLET TAKE 1 TABLET TWICE A DAY INSULIN GLARGINE (U-100) 100 * Inject 21 Units subcutaneousl* daPulse ULTRA TEST STRIPS USE TO TEST BLOOD SUGAR THREE* LANCETS Test blood sugar(s) 3 times d* BLOOD-GLUCOSE METER KIT 1 Each as needed. REPAGLINIDE 2 MG TABLET Take 1-2 tablets each meal Patient taking differently: Take 1-2 tablets three times * INSULIN SYRINGE-NEEDLE U-100 * Use 1 syringe for each dose 1* PEN NEEDLE, DIABETIC 31 GAUGE* Use one needle per dose. 1 pe* AMOXICILLIN 875 MG-POTASSIUM * Take 1 tablet by mouth twice * FEXOFENADINE 180 MG TABLET Take 1 tablet by mouth once d* AZELASTINE 137 MCG (0.1 %) NA* Use 1-2 Sprays in each nostri* ALOGLIPTIN 25 MG TABLET Take 1 tablet by mouth once d* FLUTICASONE 50 MCG/ACTUATION * Use 2 Sprays in each nostril * Problem List As Of Date 05/08/2018 Noted Resolved Pure hypercholesterolemia [E78.00] Priority: A Diabetes mellitus (HCC) [E11.9] 08/16/2016 Priority: Moderate More... Essential hypertension, benign [I10] Priority: B Unspecified disorder of joint [719.9] 11/23/2016 More... 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 Cardiomyopathy, nonischemic [I42.8] INVALID FOR* Abnormality of gait [R26.9] INVALID FOR* DM (diabetes mellitus), type 2, uncontrolled w/*INVALID FOR*12/21/2015 Chronic nausea [R11.0] INVALID FOR*09/01/2015 Ganglion cyst of right foot [M67.471] INVALID FOR* ICD (implantable cardioverter-defibrillator) in*INVALID FOR*08/16/2016 Biventricular ICD (implantable cardioverter-def*INVALID FOR* Uncontrolled type 2 diabetes mellitus with diab*INVALID FOR* More... Neuropathy (HCC) [G62.9] INVALID FOR*08/16/2016 Restless leg syndrome [G25.81] INVALID FOR* Peroneal tendinitis [M76.70] INVALID FOR* Pain in joint, ankle and foot [M25.579] INVALID FOR* Nonallergic rhinitis [J31.0] INVALID FOR* Other instructions from your clinician: Take augmentin one tablet twice a day for 10 days Take fexofenadine/jasvir 180 mg once a day as needed for itching, sneezing or runny nose. This will replace loratidine/claritin. Continue fluticasone nasal spray 2 sprays to each nostril twice a day Use azelastine nasal spray 1-2 sprays to each nostril twice a day as needed Visit Notes: >> Caron Robles RN Becky May 08, 2018 1:17 PM Status: Signed patient here for follow up visit. Reports still coughing. Taking Flonase twice daily and Claritin once daily. Prescriptions ordered this encounter Disp Refills Start End AMOXICILLIN 875 MG-POTASSIUM CLAVULA* 20 t* 0 05/08/2018 Route: ORAL Sig: Take 1 tablet by mouth twice daily. FEXOFENADINE 180 MG TABLET 30 t* 11 05/08/2018 Route: ORAL Sig: Take 1 tablet by mouth once daily. AZELASTINE 137 MCG (0.1 %) NASAL SPR* 1 Abdiel* 11 05/08/2018 Route: EACH NOSTRIL Sig: Use 1-2 Sprays in each nostril twice daily as needed. Medications Discontinued During This Encounter clindamycin (CLEOCIN) 300 mg capsule 30 c* 0 02/25/2018 05/08/2018 Route: ORAL Sig: Take 1 capsule by mouth three times daily. Disc: Course of therapy completed cephALEXin (KEFLEX) 500 mg capsule 21 c* 0 03/12/2018 05/08/2018 Route: ORAL Sig: Take 1 capsule by mouth three times daily. Disc: Course of therapy completed Disposition: Return in about 1 month (around 06/08/2018). Follow-up and Disposition History Recorded Encounter Status:Closed by JUSTIN JOHNSON MD on 05/08/18 ENDOCRINOLOGY VISIT Observed: 05/07/2018 Status: F Source: [place] REPORT 8:00 AM [facility] REPOSITORY [facility] [address] [place] [address] OFFICE VISIT Date of Service: 05/06/18 MR#: [id number] Acct: [id number] Name: MICHELLE JULES Rep #: [id number] : 1965 Provider: Lissette Payne NP Age/Sex: 52/F Location[place] [facility] [place]: Signed HPI History of present illness History of present illness Michelle Thomas is a 52 year old female who presents for follow up of diabetes type 2. Diagnosed in 2002. Continues on prandin, basaglar 44 units daily. Using admelog 1 unit per 50 for sliding scale. Pt denies difficulty with injections or self monitoring of BG. Denies any signs of infection or irritation at site of injections. Reports taking insulin as directed Recently had to stop her metformin due to cardiac issues. Her BG readings which had bee doing extremely well have destablized and now are uncontrolled and high. Placed on admelog sliding scale using 1 unit per 50 BG points. At time of visit: -Pt denies symptoms of hypertensive emergency (CP,SOB,HUGHES, or blurred vision) and hypotension(dizziness or lightheadedness) -Pt denies symptoms of hypoglycemia ( sweaty, confusion, anxiety, tremor, hunger, palpitations) and hyperglycemia ( polydipsia, polyuria) -Pt denies potential medication adverse effect. Hypoglycemia Aware of hypoglycemia: yes Able to self treat low BG: Yes Frequent low Blood sugar: No Has supply of glucagon: no Diet has been eating 3 meals daily. Can carb count Occ bedtime snack SMBG average 300 range 194-400 Checks 3-4 times daily Exam Const General: comfortable, no acute distress Nutritional Appearance: well nourished, overweight Orientation: oriented x3 HENMT Head: normal to inspection, normocephalic Ears: hearing grossly normal bilaterally Mouth: oral mucosae normal, moist mucous membranes Teeth and gingiva: dentition normal Eyes General: appearance normal, both eyes and all related structures Eyelids: eyelids normal Conjunctivae: conjunctivae normal Sclera: sclerae normal Pupils: PERRL Neck Neck: normal visual inspection, no lymphadenopathy Resp Effort AND Inspection: normal respiratory effort, able to speak in complete sentences, symmetric chest movement Auscultation: Bilateral: Clear to Auscultation Cardio Rate: regular rate Rhythm: regular rhythm Heart Sounds: S1 normal, S2 normal GI Inspection: normal to inspection Auscultation: normal bowel sounds Palpation: soft Skin General: no rashes or lesions noted Wounds: no wounds Diabetic Foot Pulses: L dorsalis pedis pulse: normal, R dorsalis pedis pulse: normal Monofilament test: Left foot: normal Neuro General: gait normal, moves all extremities Cognition: normal cognition Speech: speech normal Gait: normal gait Extrem General: normal to inspection, no pedal edema left great toenail absent. Right great toenail recent ingrown Psych Appearance: well kempt Mental Status: mental status grossly normal Mood: congruent mood Affect: normal affect Speech and Movement: speech and movement normal Attitude: cooperative Thought Process: normal Thought Content: normal Judgment: judgment good Type: insulin-requiring, type 2 Glucose control symptoms: Reports high fasting glucose and high post-meal glucose Weight and fatigue symptoms: Reports weight gain; denies snoring Cardiopulmonary symptoms: Denies chest pain at rest, dyspnea on exertion, lightheadedness or myalgias GI symptoms: Denies constipation, diarrhea, nausea/dyspepsia or vomiting Other symptoms: Denies blurry vision or change in vision Pertinent visit history: Denies recent visit to ER or recent 911 calls Self monitoring: Yes Dietary compliance: Diabetes: other Diabetes education in past year: Yes Glucose testing: demonstrates correct use of meter, understands testing schedule Sick day education - understands ketone testing: Yes Physical activity: regular Intake Vital Signs05/06/18 Height 5 ft 9 in 05/06/18 Weight: 225 lb 4 oz 05/06/18 Body Mass Index (BMI) 33.3 05/06/18 Blood Pressure 124/76 H 05/06/18 Blood Pressure Location Rt popliteal 05/06/18 Blood Pressure Position Sitting Intake Visit Reasons: 3 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 [Ecotrin] 81 mg PO DAILY 04/18/13 [History Confirmed 05/06/18] Furosemide [Lasix] 40 mg PO DAILY #30 tab 04/24/13 [Rx Confirmed 05/06/18] Magnesium Oxide [Mag-Ox 400] 400 mg PO BID #30 tab 06/01/13 [Rx Confirmed 05/06/18] alogliptin 25 mg tablet 25 mg PO DAILY 08/12/17 [History Confirmed 05/06/18] atorvastatin 10 mg tablet 10 mg PO DAILY 08/12/17 [History Confirmed 05/06/18] carvedilol 12.5 mg tablet 25 mg PO BID tab 08/12/17 [History Confirmed 05/06/18] loratadine 10 mg tablet 10 mg PO DAILY 08/12/17 [History Confirmed 05/06/18] oxybutynin chloride 5 mg tablet 15 mg PO DAILY 08/12/17 [History Confirmed 05/06/18] pantoprazole 40 mg tablet,delayed release 40 mg PO BID tab 08/12/17 [History Confirmed 05/06/18] pramipexole 0.25 mg tablet 0.75 mg PO QHS tab 08/12/17 [History Confirmed 05/06/18] spironolactone 25 mg tablet 25 mg PO DAILY 08/12/17 [History Confirmed 05/06/18] repaglinide 2 mg tablet See Rx Instructions PO TID #240 tab 10/07/17 [Rx Confirmed 05/06/18] Enalapril Maleate [Vasotec] 2.5 mg PO DAILY 11/07/17 [History Confirmed 05/06/18] Sertraline HCl [Zoloft] 50 mg PO DAILY 03/04/18 [History Confirmed 05/06/18] insulin syringe-needle U-100 0.5 mL 31 gauge x 11/27 See Dose Instructions .ROUTE .MEDSUPPLY #90 ea 03/11/18 [Rx Confirmed 05/06/18] OneTouch Delica Lancets 30 gauge See Dose Instructions .ROUTE .MEDSUPPLY #300 ea NS 03/24/18 [Rx Confirmed 05/06/18] OneTouch Ultra Blue Test Strip See Dose Instructions .ROUTE .MEDSUPPLY #300 ea NS 03/24/18 [Rx Confirmed 05/06/18] insulin lispro (U- 100) 100 unit/mL subcutaneous pen 4 unit SC TID #15 ml 03/24/18 [Rx Confirmed 05/06/18] pen needle, diabetic 32 gauge x 5/32 See Dose Instructions .ROUTE .MEDSUPPLY #200 ea 03/24/18 [Rx Confirmed 05/06/18] Basaglar LilyPen U-100 Insulin 100 unit/mL (3 mL) subcutaneous 56 unit SC DAILY #30 ml NS 05/06/18 [Rx Confirmed 05/06/18] FreeStyle Marissa 10 Day Peel See Dose Instructions .ROUTE .MEDSUPPLY #1 ea NS 05/06/18 [Rx Confirmed 05/06/18] FreeStyle Marissa 10 Day Sensor kit See Dose Instructions .ROUTE .MEDSUPPLY #3 ea NS 05/06/18 [Rx Confirmed 05/06/18] insulin lispro (U- 100) 100 unit/mL subcutaneous solution See Rx Instructions SC TID #3 ml 05/06/18 [Rx Confirmed 05/06/18] Nurse's Note: blood sugars : low : 194 high : 400 PFSH Medical History Gout (Acute) Heart disease (Acute) Nonischemic dilated cardiomyopathy (Acute) Arthritis (Chronic) Diabetes type 2, controlled (Chronic) HTN (hypertension) (Chronic) Headache (Chronic) Hyperlipidemia (Chronic) Pulmonary HTN (Chronic) RLS (restless legs syndrome) (Chronic) Seasonal allergies (Chronic) Surgical History H/O colectomy (Acute) History of hysteroscopy (Acute) History of left heart catheterization (Acute) Hx of appendectomy (Acute) Family History Father Heart disease Myocardial infarction CAD (coronary artery disease) Mother CAD (coronary artery disease) Heart disease Social History Smoking Status: Never smoker second hand exposure: No alcohol intake: current alcohol intake frequency: a few times a month substance use type: does not use ROS Const Constitutional: Positive for fatigue; no anorexia, body ache, chills, fever(s), frequent falls, decreased energy, malaise, night sweats, weakness, weight change, sleep problems, abnormal sleep pattern, change in appetite, other, headache(s), snoring or excessive sweating Eyes Eyes: No blurry vision, change in vision, double vision, discharge, dry eyes, bulging eyes, floaters, visual disturbances, eye pain, light sensitivity, spots in vision, tunnel vision or other ENT ENT: No abnormal hearing, ear pain, ear discharge, ear pressure, hearing loss, tinnitus, dizziness/vertigo, balance problems, nosebleed/epistaxis, nasal congestion, nasal obstruction, nose pain, sinus pressure, sinus pain, nasal discharge, post nasal drip, headache(s), facial pain, dental pain, dry mouth, bad breath, hoarseness, lip swelling, mouth lesions, mouth pain, sore throat, tongue swelling, throat swelling, other, difficulty swallowing or neck pain Resp Respiratory: Positive for cough and shortness of breath; no change in phlegm color, chest congestion, excessive phlegm production, hemoptysis, pain on inspiration, pain with cough, snoring, stridor, wheezing or other Cardio Cardiology: Positive for generalized swelling; no chest pain at rest, chest pain with exertion, leg pain with exertion, excessive sweating, shortness of breath, dyspnea on exertion, irregular heart rhythm, lightheadedness, orthopnea, radiating jaw, neck or arm pain, fast heart rate, slow heart rate, palpitations or other Gastro GI: No abdominal pain, belching, bloating, change in bowel habits, change in stool character, coffee ground emesis, constipation, cramping, diarrhea, heartburn, difficulty swallowing, feeling full early, excessive flatus, incontinent of stools, Vomiting blood/hematemesis, blood in stool, loose stools, Black,tarry stools, nausea/dyspepsia, pain with swallowing, vomiting or other Genitourinary-Female: No difficulty urinating, burning urination, painful urination, urinary incontinence, urinary frequency, urinary urgency, urinary hesitancy, urinary retention, blood in urine, Frequent nighttime urination/ nocturia, post void dribbling, suprapubic fullness, side pain, sexual problems, genital lesions, genital itching, hot flashes, abnormal periods, abnormal vaginal bleeding, absent period, painful periods, light periods, heavy periods, difficulty getting , painful intercourse, pelvic pain, vaginal dryness, vaginal odor, Vaginal Itching or other Musc Musculoskeletal: Positive for joint pain (will be having surgery on L knee 05/23/18) and back pain; no abnormal walking, deformity, joint swelling, limited range of motion, loss of height, muscle cramps, muscle weakness, decreased muscle mass, body aches, neck pain, numbness, radiating pain into limb, stiffness, tingling or other Skin Skin: Positive for wounds (R great toe - ingrown toe nail, L great toe - nail fell off); no acne, hair loss, change in hair, nail changes, boil, change in skin color, dry skin, redness, excessive hair growth, yellowing of the skin, lesions, itching, rash, skin pain, skin ulcer, sores, skin swelling or other Breast Breast: No other Neuro Neurology: No frequent falls, weakness, visual disturbances, abnormal hearing, headache(s), abnormal walking, numbness or tingling Psych Psychiatric: No abnormal sleep pattern, No change in appetite Endo Endocrine: Positive for fatigue; no other or excessive sweating Aller/Imm Allergy/Immunologic: No lip swelling, tongue swelling, throat swelling, wheezing or itchy eyes Assessment AND Plan Problems 1. Diabetes mellitus type 2 in obese E11.69; E66.9 Plan Todays visit is for her BG readings review. She continues to have elevated BG. She is mostly checking before meals but has not been consistent in checking her BG during the day. Has been checking in the am and usually before supper. She is taking sliding scale pre meal if she notes BG in the higher 200 range. This is still not correcting BG readings. Will change her correction schedule as well as increase her basal insulin. Will order marissa sensor for patient and determine if insulin will allow use. Would be beneficia for this patient. Has appointment with [facility]. No signs of infection of feet. Reviewed labs with patient. Patient Instructions Increase basaglar by 2-3 units every 3-4 days as long as all bG above 150. Change sliding scale insulin to 1 unit per 35 BG points over 180. Call with any concerns or questionss. RTC 4-6 weeks Medications New: [employer] Marissa 10 Day Peel (flash glucouse as directed to moniter BG 1 ea 0RF NS E11.69 se scanning reader) Changed: From: Basaglar KwikPen U-100 Insulin (glauhn94 units (0.44 mL) subcut DAILY 15 mL E11.69 n glargine) Titrating dose up. 11RF glucose control NS Plan Detail Additional Comments 1. Please schedule follow up in4-6 weeks 2. Lab work not needed before appointment. 3. Discussed importance of regular exercise and recommend starting or continuing a regular exercise program for good health. 4. The patient was encouraged to lose weight for good health 5. The importance of monitoring blood sugar regularly was reviewed. 6. The importance of monitoring the HBA1c level regularly was reviewed. 7. The importance of prper foot care and regularly checking feet to prevent sores and loss of limbs was reviewed. 8. The importance of keeping BP at or below 130/80 to prevent stroke, heart attacks, kidney failure, blindness was reviewed. Spent approximately 30 minutes with patient with over 50% of time spent in discussion and counseling regarding medication adjustment, symptoms and treatment of hypoglycemia, diet adherence, and checking BG before driving. Coding Level of Care Code Off vis,est,level 4 Diagnoses Diabetes mellitus type 2 in obese E11.69; E66.9 05/07/18 0800 <Electronically signed by Lissette NOLAN> Date Lissette NOLAN Cosigner Signature: Date (if applicable) CC: CNNURSE Observed: 05/02/2018 Status: COMPLETED Source: [place] 11:00 AM [facility] REPOSITORY Nurse Visit (AGCARDPOB) MICHELLE JULES ([id number]) 1965 F Date Time Provider Department 05/02/18 11:00 AM NURSE CARD ROBIN GUTHRIE AGCARDPOB During your visit today, we recorded the following information about you: Temperature 97.7 degrees Poonam Holley RN 05/02/2018 11:03 AM Signed Pt is S/P device implant in Feb [address] Wheeler. She comes in today reporting new discomfort and warmth at incision site. Lt ACW is well-approximated without redness, warmth or edema. Thin keloid formation along incision. Pt denies fever, chills or night sweats. Pt encouraged to monitor site. Notify of office of any change or fever. AFRICA Saleem, MSN, MATERIALS ANALYST.CASHIER CHECKER 05/05/2018 9:25 PM Signed Assessment noted, agree with the plan. Ilda Lee, MSN, MATERIALS ANALYST.CASHIER CHECKER Referring Provider: SELF [200] Allergies As of Date: 05/02/2018 Noted Allergy Reaction ADHESIVE TAPE (ROSINS) 03/27/2006 9 - Itching LATEX 01/10/2011 2 - Rash SIMVASTATIN 11/04/2012 14 - Other: See Comments Comments: myalgia Date Reviewed: 04/01/2018 Reviewed by: Justin Johnson - Fully Assessed Reason for Visit: Wound Check [133] Primary Visit Diagnosis:ICD (implantable cardioverter-defibrillator) in place [Z95.810] Prescriptions as of 05/02/2018 Sig: SERTRALINE 50 MG TABLET Take 1 tablet by mouth once d* FLUTICASONE 50 MCG/ACTUATION * Use 2 Sprays in each nostril * PANTOPRAZOLE 40 MG TABLET,DEL* TAKE 1 TABLET BY MOUTH TWICE * CEPHALEXIN 500 MG CAPSULE Take 1 capsule by mouth three* BLOOD-GLUCOSE METER KIT 1 Each as needed. CLINDAMYCIN HCL 300 MG CAPSULE Take 1 capsule by mouth three* INSULIN LISPRO (U-100) 100 UN* Inject subcutaneously three t* OXYBUTYNIN CHLORIDE ER 15 MG * TAKE 1 TABLET BY MOUTH DAILY TRIAMCINOLONE ACETONIDE 0.1 %* APPLY TO AFFECTED AREA(S) ON * ASPIRIN 81 MG TABLET,DELAYED * Take 1 tablet by mouth once d* LORATADINE 10 MG TABLET Take 1 tablet by mouth once d* ALOGLIPTIN 25 MG TABLET Take 1 tablet by mouth once d* PRAMIPEXOLE 0.75 MG TABLET Take 1 tablet by mouth daily * MAGNESIUM OXIDE 400 MG (241.3* Take 1 tablet by mouth twice * ENALAPRIL MALEATE 2.5 MG TABL* Take 1 tablet by mouth once d* FUROSEMIDE 40 MG TABLET TAKE 1 TABLET DAILY SPIRONOLACTONE 25 MG TABLET TAKE 1 TABLET DAILY ATORVASTATIN 10 MG TABLET TAKE 1 TABLET DAILY CARVEDILOL 25 MG TABLET TAKE 1 TABLET TWICE A DAY INSULIN GLARGINE (U-100) 100 * Inject 21 Units subcutaneousl* FLUTICASONE 50 MCG/ACTUATION * Use 2 Sprays in each nostril * ONETOUCH ULTRA TEST STRIPS USE TO TEST BLOOD SUGAR THREE* LANCETS Test blood sugar(s) 3 times d* BLOOD-GLUCOSE METER KIT 1 Each as needed. REPAGLINIDE 2 MG TABLET Take 1-2 tablets each meal Patient taking differently: Take 1-2 tablets three times * INSULIN SYRINGE-NEEDLE U-100 * Use 1 syringe for each dose 1* PEN NEEDLE, DIABETIC 31 GAUGE* Use one needle per dose. 1 pe* Problem List As Of Date 05/02/2018 Noted Resolved Pure hypercholesterolemia [E78.00] Priority: A Diabetes mellitus (HCC) [E11.9] 08/16/2016 Priority: Moderate More... Essential hypertension, benign [I10] Priority: B Unspecified disorder of joint [719.9] 11/23/2016 More... 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 Cardiomyopathy, nonischemic [I42.8] INVALID FOR* Abnormality of gait [R26.9] INVALID FOR* DM (diabetes mellitus), type 2, uncontrolled w/*INVALID FOR*12/21/2015 Chronic nausea [R11.0] INVALID FOR*09/01/2015 Ganglion cyst of right foot [M67.471] INVALID FOR* ICD (implantable cardioverter-defibrillator) in*INVALID FOR*08/16/2016 Biventricular ICD (implantable cardioverter-def*INVALID FOR* Uncontrolled type 2 diabetes mellitus with diab*INVALID FOR* More... Neuropathy (HCC) [G62.9] INVALID FOR*08/16/2016 Restless leg syndrome [G25.81] INVALID FOR* Peroneal tendinitis [M76.70] INVALID FOR* Pain in joint, ankle and foot [M25.579] INVALID FOR* Nonallergic rhinitis [J31.0] INVALID FOR* Visit Notes: >> Poonam Holley Fri May 02, 2018 10:57 AM Status: Signed Pt is S/P device implant in Feb [address] Wheeler. She comes in today reporting new discomfort and warmth at incision site. Lt ACW is well-approximated without redness, warmth or edema. Thin keloid formation along incision. Pt denies fever, chills or night sweats. Pt encouraged to monitor site. Notify of office of any change or fever. Poonam Holley RN >> Ko Herrera) Ant [facility] May 05, 2018 9:25 PM Status: Signed Assessment noted, agree with the plan. Ilda Lee, GINGER, MATERIALS ANALYST.CAROL Follow-up and Disposition History Recorded Encounter Status:Closed by GINGER LEE, CAROL, ILDA Mclain on 05/05/18 FREE T3 Collected: 04/30/2018 Status: F Source: [place] 12:00 PM [facility] REPOSITORY TYPE CODE TESTS RESULT OUT OF RANGE REFERENCE UNITS LAB [id number] 2.18-3.98 pg/mL Normal FREE T3 2.7 Performed By: #### L501.01077, L501.9520, L506.0400 #### [facility] [address] [place], [place], [address] THYROID STIM HORMONE Collected: 04/30/2018 Status: F Source: [place] (TSH) 12:00 PM [facility] REPOSITORY TYPE CODE TESTS RESULT OUT OF RANGE REFERENCE UNITS LAB [id number] 0.358-3.74 uIU/mL Normal TSH 0.54 Performed By: #### L501.46224, L501.9520, L506.0400 #### [facility] [address] [place], [address] T4 FREE DIRECT Collected: 04/30/2018 Status: F Source: [place] 12:00 PM [facility] REPOSITORY TYPE CODE TESTS RESULT OUT OF RANGE REFERENCE UNITS LAB [id number] 0.76-1.46 ng/dL Normal T4 FREE 1.03 DIRECT Performed By: #### L501.80351, L501.9520, L506.0400 #### [facility] [address] [place], [address] CNOV Observed: 04/01/2018 Status: COMPLETED Source: [place] 2:00 PM [facility] REPOSITORY Office Visit (ALLMED) MICHELLE THOMAS ([id number]) 1965 F Date Time Provider Department 04/01/18 2:00 PM JUSTIN JOHNSON During your visit today, we recorded the following information about you: Pulse Respiration Blood pressure Weight 67/minute 16/minute 117/74 98.4 kg Height 1.753 m Joanne Adams RN 04/01/2018 2:18 PM Signed Patient c/o dry cough at night, shortness of breath. Denies wheezing. C/o itchy eyes, throat. Uses Flonase for nasal congestion, helps some. Uses Zyrtec. Patient has been off antihistamines for 7 days. Justin Johnson MD 04/03/2018 6:36 PM Signed This is a consultation requested by Dr. Ding for an allergy and immunology evaluation. My final recommendations will be communicated back to the requesting healthcare provider(s) by way of shared medical record or via [place]. mail. Michelle Thomas is a 52 year old female who has symptoms of nasal congestion. Also with intermittent itchy eyes, clear rhinorrhea, sneezing, postnasal drip. Associated symptoms include cough . These symptoms are perennial with seasonal exacerbation in the summer. he patient has been suffering from these symptoms for several year(s). The patient has tried claritin with minimal relief of symptoms. Uses flonase as needed only. Triggers of her sxs include grass pollen and hay. She was on subcutaneous allergy immunotherapy several years ago with improvement in her symptoms. Denies systemic reactions due to immunotherapy. Of note, she is on carvedilol and has an implanted defibrillator in place due to a history of cardiomyopathy. She also complains of cough which is worse at night. This has been present for 2 months. She takes enalapril but has been on this medication since 2002. Denies a recent change in dose. The cough awakens her from sleep every night. She has intermittent daytime cough as well. Denies significant wheezing, chest tightness or shortness of breath. Denies a prior history of asthma. She has never used short acting beta agonists or other asthma medications. Denies a history of recurrent or chronic rhinosinusitis, nasal polyposis or nasal trauma. No prior imaging of the sinuses. No prior nasal or sinus surgery. 2 months ago, she developed vomiting and diarrhea shortly after ingesting oysters. No other symptoms. Denies subsequent ingestion of shellfish and mollusks. She takes Protonix 40 mg twice daily for GERD and hiatal hernia. EGD was completed in 2016. She complains of developing an itchy rash associated with use of latex gloves and Band-Aids. Denies complications during prior medical or dental procedures. 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 Denies symptoms with ingestion of avocado, banana, chestnut and kiwi. REVIEW OF SYSTEMS: SINUSITIS: The patient does not suffer from frequent sinopulmonary infections. ASTHMA: The patient has no history of asthma. ECZEMA: The patient has no history of eczema. URTICARIA:The patient does not have a history of urticaria and/or angioedema. GERD: See [place] INSECT STING: The patient does not have a history of systemic reaction to insect sting. FOOD ALLERGY:See [place] LATEX: See [place]. All other review of systems negative except for those listed above. PAST MEDICAL HISTORY Diagnosis Date - Anxiety disorder in conditions classified elsewhere - Arthritis left knee with spur - Cardiomyopathy, nonischemic (HCC) 04/2013 - Degenerative joint disease involving multiple joints shoulders, right knee - Essential hypertension, benign - Family history of colon cancer 5y screening cycle - GERD (gastroesophageal reflux disease) - History of placement of internal cardiac defibrillator 09/03/2013 - Neuropathy (HCC) 02/09/2016 - Obesity, unspecified - Pure hypercholesterolemia - Restless leg syndrome 02/09/2016 - Snoring - Type II or unspecified type diabetes mellitus without mention of complication, not stated as uncontrolled - Vitamin D deficiency MEDICATIONS: pantoprazole DR (PROTONIX) 40 mg tablet TAKE 1 TABLET BY MOUTH TWICE DAILY cephALEXin (KEFLEX) 500 mg capsule Take 1 capsule by mouth three times daily. Blood-Glucose Meter ([employer] LTDTOUCH ULTRA2) monitoring kit 1 Each as needed. clindamycin (CLEOCIN) 300 mg capsule Take 1 capsule by mouth three times daily. insulin lispro (ADMELOG SOLOSTAR U-100 INSULIN) 100 unit/mL inpn Inject subcutaneously three times daily before meals. Take 1 unit when blood sugar is above 200 or higher. DANITZA PAYNE oxybutynin ER (DITROPAN XL) 15 mg 24 hr Extended Rel Tab TAKE 1 TABLET BY MOUTH DAILY triamcinolone acetonide (KENALOG) 0.1 % ointment APPLY TO AFFECTED AREA(S) ON LEGS TWICE A DAY NEEDED *USE 2 WEEKS ON, 1 WEEK OFF *NOT FOR FACE, ARMPITS aspirin, enteric coated (ECOTRIN LOW STRENGTH) 81 mg EC tablet Take 1 tablet by mouth once daily. loratadine (CLARITIN) 10 mg tablet Take 1 tablet by mouth once daily. alogliptin 25 mg tab Take 1 tablet by mouth once daily. Pramipexole 0.75 mg tablet Take 1 tablet by mouth daily at bedtime. magnesium oxide (MAG-OX) 400 mg tablet Take 1 tablet by mouth twice daily. sertraline (ZOLOFT) 50 mg tablet Take 1/2 tab once a day orally for one week then 1 tab once a day enalapril (VASOTEC) 2.5 mg tablet Take 1 tablet by mouth once daily. furosemide (LASIX) 40 mg tablet TAKE 1 TABLET DAILY spironolactone (ALDACTONE) 25 mg tablet TAKE 1 TABLET DAILY atorvastatin (LIPITOR) 10 mg tablet TAKE 1 TABLET DAILY carvedilol (COREG) 25 mg tablet TAKE 1 TABLET TWICE A DAY insulin glargine (BASAGLAR KWIKPEN) 100 unit/mL (3 mL) inpn Inject 21 Units subcutaneously every evening. fluticasone (FLONASE) 50 mcg/actuation nasal spray Use 2 Sprays in each nostril once daily. ONETOUCH ULTRA TEST test strip USE TO TEST BLOOD SUGAR THREE TIMES A DAY Lancets lancets Test blood sugar(s) 3 times daily. Blood-Glucose Meter (FREESTYLE SYSTEM KIT) monitoring kit 1 Each as needed. repaglinide (PRANDIN) 2 mg tablet Take 1-2 tablets each meal Insulin Syringe-Needle U-100 (INSULIN SYRINGE) 1/2 mL 30 x 5/16 syrg Use 1 syringe for each dose 1/day insulin needles, DISPOSABLE, (PEN NEEDLE) 31 gauge x 5/16 ndle Use one needle per dose. 1 per day. ALLERGIES: Allergies As of Date: 04/01/2018 Allergen Noted Reaction ADHESIVE TAPE (ROSINS) 03/27/2006 Itching LATEX 01/10/2011 Rash SIMVASTATIN 11/04/2012 Other: See Comments Fully Assessed 04/01/2018 PAST SURGICAL HISTORY Procedure Laterality Date - APPENDECTOMY 2006 - COLONOSCOP W/ OR W/O [facility] SPEC 10/08/06 - COLONOSCOP W/ OR W/O [facility] SPEC 09/18/2011 Colonoscopy - COLONOSCOP W/ OR W/O [facility] SPEC 09/27/2016 Colonoscopy - DESTR LES BENIGN/ PREMAL 02/06/12 Ablation anal condyomata - EGD 09-01-15 - INSERT DUAL CHAMBER ICD 09/03/13 pacemaker/defibulator - KNEE SCOPE,DIAGNOSTIC right - LAPAROSCOPY, SURGICAL, APPENDECTOMY 10/22/06 - PAST SURGICAL HISTORY OF Right 11-14 ganglion cyst - PAST SURGICAL HISTORY OF Left 2016 cyst removed from left foot - REMOVEANDREPLACE ICD PULSE GEN 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 Asthma: no. Eczema: no. Cystic fibrosis: no. Immunodeficiency: no. SOCIAL HISTORY: Social History Marital status: Spouse name: Years of education: Number of children: 2 Occupational History Occupation Employer Comment [employer] Social History Main Topics Smoking status: Never Smoker Smokeless tobacco: Never Used Alcohol use: No Comment: seldom Drug use: No Sexual activity: Not Currently Partners with: Male Other Topics Concern Caffeine Concern Yes Comment:pop, tea Special Diet No Comment:average Exercise No Comment:sedentary Not working currently ENVIRONMENTAL HISTORY: Lives in a trailer. Age of home: 40 years Heating: propane Woodburning fireplace in the home: no Air conditioning: Central air Basement: No basement Ortiz: [id number] carpeting Dust mite controls: Dust mite controls are not in place. Pets in the home: 2 dogs Outdoor animals: There are no outdoor animals Tobacco smoke: No exposure in the home. Physical Exam: GENERAL APPEARANCE:Well appearing, alert, in no acute distress, well-hydrated, well nourished. HEENT: NCAT. EYES: conjunctiva and sclera normal. EARS: External ears normal. Canals clear. TM's normal. NOSE/SINUS: Nares normal. Septum midline. Mucosa normal. No drainage or sinus tenderness. THROAT: no erythema NECK:neck supple, no adenopathy HEART:RRR with normal S1 and S2 ,no murmurs, no gallops, no rubs LUNGS: clear to auscultation bilaterally, no wheezes, rales or rhonchi ABDOMEN:soft, nontender, nondistended, without organomegaly or palpable masses EXTREMITIES:Extremities normal, No deformities, No skin discoloration and No edema SKIN: Skin color, texture, turgor normal. No rashes or lesions. ALLERGY SKIN TESTS:Negative to inhalants, latex, shellfish and mollusks ASSESSMENT/PLAN: 1.) Nonallergic Rhinitis Recommend regular use of fluticasone nasal spray 2 sprays each nostril once daily. She may take Claritin 10 mg once daily as needed for itching, sneezing or runny nose. 2.) Cough Spirometry and exhaled nitric oxide will be obtained prior to her next visit. 3.) Toxic effect latex: Latex skin tests were negative at today's visit. A latex specific IgE level will be obtained to evaluate further for possible severe, immediate, IgE?mediated latex hypersensitivity. 4.) Adverse reaction food: Allergy skin teststo shellfish and mollusks were negative. Patient is at low risk for a severe, immediate, IgE?mediated reaction to shellfish and mollusks. 5.) Discussed medication dosage, usage, side effects, and goals of treatment in detail. 6 ) Follow-up in 1 month with fahad and shantelle - patient will return sooner should new symptoms or problems arise. Justin Johnson MD INHALANT 40 PERCUTANEOUS AND INTRADERMAL TESTING/ Mean Wheal AND Flare Diameter (mm) Patient has been identified by name and date of : Yes . Skin test applied by : Joanne Adams RN Interpreted By: Justin Johnson M.D. * Clinical significant reactions are regarded as a wheal diameter greater than or equal to 3 mm with a flare diameter greater or equal to 6mm. ALLERGENS 1. Negative Control: 50%Glycerin/50%Cocas P: W = 0 mm F = 0 mm 2. Cat Hair 10,000 BAU/ml P: W = 0 mm F = 0 mm 3. Dog Epithelial 1:20 P: W = 0 mm F = 0 mm 4. Cockroach Mix 1:20 P: W = 0 mm F = 0 mm 5. Mite Df 10,000 AU/ml P: W = 0 mm F = 0 mm 6. Mite Dp 10,000AU/ml P: W = 0 mm F = 0 mm 7. Alternaria Alternata 1:10 P: W = 0 mm F = 0 mm 8. Aspergillus Fumigatus 1:20 P: W = 0 mm F = 0 mm 9. Cladosporium sphearospermum 1:20 P: W = 0 mm F = 0 mm 10. Epicoccum Nigrum 1:10 P: W = 0 mm F = 0 mm 11. Fusarium Solani 1:40 P: W = 0 mm F = 0 mm 12. Bipolaris [place]iana 1:20 P: W = 0 mm F = 0 mm 13. Penicillium Mix 1:20 P: W = 0 mm F = 0 mm 14. Greg, White 1:20 P: W = 0 mm F = 0 mm 15. Beech, [place]ar[place]uan 1:20 P: W = 0 mm F = 0 mm 16. Birch Mix 1:20 P: W = 0 mm F = 0 mm 17. Maple Mix 1:20 P: W = 0 mm F = 0 mm 18. [place] ,Eastern 1:20 P: W = 0 mm F = 0 mm 19. Elm, [place]ar[place]uan 1:20 P: W = 0 mm F = 0 mm 20. [place], Shagbark 1:20 P: W = 0 mm F = 0 mm 21. [place] Tree, Red 1:20 P: W = 0 mm F = 0 mm 22. [place], Black 1:20 P: W = 0 mm F = 0 mm 23. [place], Nicaraguan/Eastern 1:20 P: W = 0 mm F = 0 mm 24. [place] Pollen, Black 1:20 P: W = 0 mm F = 0 mm 25. [place], Black 1:20 P: W = 0 mm F = 0 mm 26. [place] Grass 10,000 BAU/ml P : W = 0 mm F = 0 mm 27. [place], Blue/December 100,000 BAU/ml P: W = 0 mm F = 0 mm 28. Fescue, [place] 100,000 BAU/ml P: W = 0 mm F = 0 mm 29. Zak Grass 1:20 P: W = 0 mm F = 0 mm 30. Orchard Grass 100,000 BAU/ml P: W = 0 mm F = 0 mm 31. Perennial [place], 100,000 BAU/ml P: W = 0 mm F = 0 mm 32. Varun 100,000 BAU/ml P: W = 0 mm F = 0 mm 33. [place] 1:20 P: W = 0 mm F = 0 mm 34. [place], sheep 1:20 P: W = 0 mm F = 0 mm 35. Plantain, [place] 1:20 P: W = 0 mm F = 0 mm 36. Lambs Quarters 1:20 P: W = 0 mm F = 0 mm 37. Rangel Elder, Burweed 1:20 P: W = 0 mm F = 0 mm 38. Pigweed, Rough 1:20 P: W = 0 mm F = 0 mm 39. Ragweed, Mix 1:20 P: W = 0 mm F = 0 mm 40. HISTAMINE, positive control(Histamine base 6mg/ml) P: W = 5 mm F = 20 mm LATEX PERCUTANEOUS TESTING/ Mean Wheal AND Flare Diameter Patient has been identified by name and date of : Yes . Skin test applied by : Joanne Adams RN Interpreted By: Dr. Justin Johnson MD * Clinical significant reactions are regarded as a wheal diameter greater than or equal to 3 mm with a flare diameter greater or equal to 6mm. ALLERGENS 1. High Ammoniated Latex P: W = 0 mm F = 0 mm 2. Low Ammoniatex Latex P: W = 0 mm F = 0 mm 3. Solid Latex - glove P: W = 0 mm F = 0 mm FOOD ALLERGEN PERCUTANEOUS SKIN TESTING Mean Wheal AND Flare Diameter ( mm) Patient has been identified by name and date of : Yes . Skin test applied by : Joanne Adams RN Interpreted By: Justin Johnson M.D. * Clinical significant reactions are regarded as a wheal diameter greater than or equal to 3 mm with a flare diameter greater or equal to 6mm. ALLERGENS: SHELLFISH 1. Clam 1:20 P: W = 0 mm F = 0 mm 2. Crab 1:20 P: W = 0 mm F = 0 mm 3. Lobster 1:20 P: W = 0 mm F = 0 mm 4. Oyster 1:20 P: W = 0 mm F = 0 mm 5. Scallop 1:20 P: W = 0 mm F = 0 mm 6. Shrimp 1:20 P: W = 0 mm F = 0 mm Patient was instructed on allergy (prick and intradermal) testing. Topical Pramasone cream applied to testing site per Dr. Johnson's instruction. Joanne Adams RN Referring Provider: MELLO DING [[id number]] Allergies As of Date: 04/01/2018 Noted Allergy Reaction ADHESIVE TAPE (ROSINS) 03/27/2006 9 - Itching LATEX 01/10/2011 2 - Rash SIMVASTATIN 11/04/2012 14 - Other: See Comments Comments: myalgia Date Reviewed: 04/01/2018 Reviewed by: Justin Johnson - Fully Assessed Reason for Visit: New Patient [172] Cmt: allergies Primary Visit Diagnosis:Nonallergic rhinitis [J31.0] Other Visit Diagnoses:Adverse reaction to food, initial encounter [T78.1XXA] Toxic effect of latex, accidental (unintentional), initial encounter [T65.811A] Cough [R05] Dyspnea and respiratory abnormalities [R06.00, R06.89] Order(s):ALLERGEN SKIN TEST-INHALENT 40 [[id number]] Order #: [id number] ALLERGEN SKIN TEST-FOOD [[id number]] Order #: [id number] ALLERGEN SKIN TEST-LATEX [[id number]] Order #: [id number] fluticasone (FLONASE) 50 mcg/actuation nasal sprayUse 2 Sprays in each nostril once daily.Disp: 1 BottleRfl: 11 ALGN LATEX IGE [SQLATEXA] Order #: [id number] FUTURE SPIROMETRY WITH DILATOR IF OBSTRUCTED [[id number]] Order #: [id number] FUTURE NITRIC OXIDE, EXHALED [[id number]] Order #: [id number] FUTURE Prescriptions as of 04/01/2018 Sig: PANTOPRAZOLE 40 MG TABLET,DEL* TAKE 1 TABLET BY MOUTH TWICE * CEPHALEXIN 500 MG CAPSULE Take 1 capsule by mouth three* BLOOD-GLUCOSE METER KIT 1 Each as needed. CLINDAMYCIN HCL 300 MG CAPSULE Take 1 capsule by mouth three* INSULIN LISPRO (U-100) 100 UN* Inject subcutaneously three t* OXYBUTYNIN CHLORIDE ER 15 MG * TAKE 1 TABLET BY MOUTH DAILY TRIAMCINOLONE ACETONIDE 0.1 %* APPLY TO AFFECTED AREA(S) ON * ASPIRIN 81 MG TABLET,DELAYED * Take 1 tablet by mouth once d* LORATADINE 10 MG TABLET Take 1 tablet by mouth once d* ALOGLIPTIN 25 MG TABLET Take 1 tablet by mouth once d* PRAMIPEXOLE 0.75 MG TABLET Take 1 tablet by mouth daily * MAGNESIUM OXIDE 400 MG (241.3* Take 1 tablet by mouth twice * SERTRALINE 50 MG TABLET Take 1/2 tab once a day orall* ENALAPRIL MALEATE 2.5 MG TABL* Take 1 tablet by mouth once d* FUROSEMIDE 40 MG TABLET TAKE 1 TABLET DAILY SPIRONOLACTONE 25 MG TABLET TAKE 1 TABLET DAILY ATORVASTATIN 10 MG TABLET TAKE 1 TABLET DAILY CARVEDILOL 25 MG TABLET TAKE 1 TABLET TWICE A DAY INSULIN GLARGINE (U-100) 100 * Inject 21 Units subcutaneousl* FLUTICASONE 50 MCG/ACTUATION * Use 2 Sprays in each nostril * ONETOUCH ULTRA TEST STRIPS USE TO TEST BLOOD SUGAR THREE* LANCETS Test blood sugar(s) 3 times d* BLOOD-GLUCOSE METER KIT 1 Each as needed. REPAGLINIDE 2 MG TABLET Take 1-2 tablets each meal Patient taking differently: Take 1-2 tablets three times * INSULIN SYRINGE-NEEDLE U-100 * Use 1 syringe for each dose 1* PEN NEEDLE, DIABETIC 31 GAUGE* Use one needle per dose. 1 pe* FLUTICASONE 50 MCG/ACTUATION * Use 2 Sprays in each nostril * Problem List As Of Date 04/01/2018 Noted Resolved Pure hypercholesterolemia [E78.00] Priority: A Diabetes mellitus (HCC) [E11.9] 08/16/2016 Priority: Moderate More... Essential hypertension, benign [I10] Priority: B Unspecified disorder of joint [719.9] 11/23/2016 More... 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 Cardiomyopathy, nonischemic [I42.8] INVALID FOR* Abnormality of gait [R26.9] INVALID FOR* DM (diabetes mellitus), type 2, uncontrolled w/*INVALID FOR*12/21/2015 Chronic nausea [R11.0] INVALID FOR*09/01/2015 Ganglion cyst of right foot [M67.471] INVALID FOR* ICD (implantable cardioverter-defibrillator) in*INVALID FOR*08/16/2016 Biventricular ICD (implantable cardioverter-def*INVALID FOR* Uncontrolled type 2 diabetes mellitus with diab*INVALID FOR* More... Neuropathy (HCC) [G62.9] INVALID FOR*08/16/2016 Restless leg syndrome [G25.81] INVALID FOR* Peroneal tendinitis [M76.70] INVALID FOR* Pain in joint, ankle and foot [M25.579] INVALID FOR* Visit Notes: >> Joanne Wells Apr 01, 2018 1:48 PM Status: Signed Patient c/o dry cough at night, shortness of breath. Denies wheezing. C/o itchy eyes, throat. Uses Flonase for nasal congestion, helps some. Uses Zyrtec. Patient has been off antihistamines for 7 days. Prescriptions ordered this encounter Disp Refills Start End FLUTICASONE 50 MCG/ACTUATION NASAL S* 1 Abdiel* 11 04/01/2018 Route: EACH NOSTRIL Sig: Use 2 Sprays in each nostril once daily. Disposition: Return in about 1 month (around 05/01/2018). Follow-up and Disposition History Recorded Encounter Status:Closed by JUSTIN JOHNSON MD on 04/03/18 PROGRESS Observed: 04/01/2018 Status: COMPLETED Source: [place] 1:50 PM [facility] [place] REPOSITORY HNO ID: [id number] Author: Justin Johnson Service: (none) Author Type: Physician Type: Progress Notes Filed: 04/03/2018 6:36 PM Note Text: This is a consultation requested by Dr. Ding for an allergy and immunology evaluation. My final recommendations will be communicated back to the requesting healthcare provider(s) by way of shared medical record or via [place] mail. Michelle Thomas is a 52 year old female who has symptoms of nasal congestion. Also with intermittent itchy eyes, clear rhinorrhea, sneezing, postnasal drip. Associated symptoms include cough . These symptoms are perennial with seasonal exacerbation in the summer. he patient has been suffering from these symptoms for several year(s). The patient has tried claritin with minimal relief of symptoms. Uses flonase as needed only. Triggers of her sxs include grass pollen and hay. She was on subcutaneous allergy immunotherapy several years ago with improvement in her symptoms. Denies systemic reactions due to immunotherapy. Of note, she is on carvedilol and has an implanted defibrillator in place due to a history of cardiomyopathy. She also complains of cough which is worse at night. This has been present for 2 months. She takes enalapril but has been on this medication since 2002. Denies a recent change in dose. The cough awakens her from sleep every night. She has intermittent daytime cough as well. Denies significant wheezing, chest tightness or shortness of breath. Denies a prior history of asthma. She has never used short acting beta agonists or other asthma medications. Denies a history of recurrent or chronic rhinosinusitis, nasal polyposis or nasal trauma. No prior imaging of the sinuses. No prior nasal or sinus surgery. 2 months ago, she developed vomiting and diarrhea shortly after ingesting oysters. No other symptoms. Denies subsequent ingestion of shellfish and mollusks. She takes Protonix 40 mg twice daily for GERD and hiatal hernia. EGD was completed in 2015. She complains of developing an itchy rash associated with use of latex gloves and Band-Aids. Denies complications during prior medical or dental procedures. 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 Denies symptoms with ingestion of avocado, banana, chestnut and kiwi. REVIEW OF SYSTEMS: SINUSITIS: The patient does not suffer from frequent sinopulmonary infections. ASTHMA: The patient has no history of asthma. ECZEMA: The patient has no history of eczema. URTICARIA:The patient does not have a history of urticaria and/or angioedema. GERD: See [place] INSECT STING: The patient does not have a history of systemic reaction to insect sting. FOOD ALLERGY:See [place] LATEX: See [place]. All other review of systems negative except for those listed above. PAST MEDICAL HISTORY Diagnosis Date - Anxiety disorder in conditions classified elsewhere - Arthritis left knee with spur - Cardiomyopathy, nonischemic (HCC) 04/2013 - Degenerative joint disease involving multiple joints shoulders, right knee - Essential hypertension, benign - Family history of colon cancer 5y screening cycle - GERD (gastroesophageal reflux disease) - History of placement of internal cardiac defibrillator 09/03/2013 - Neuropathy (HCC) 02/09/2016 - Obesity, unspecified - Pure hypercholesterolemia - Restless leg syndrome 02/09/2016 - Snoring - Type II or unspecified type diabetes mellitus without mention of complication, not stated as uncontrolled - Vitamin D deficiency MEDICATIONS: pantoprazole DR (PROTONIX) 40 mg tablet TAKE 1 TABLET BY MOUTH TWICE DAILY cephALEXin (KEFLEX) 500 mg capsule Take 1 capsule by mouth three times daily. Blood-Glucose Meter ([employer] LTDTOUCH ULTRA2) monitoring kit 1 Each as needed. clindamycin (CLEOCIN) 300 mg capsule Take 1 capsule by mouth three times daily. insulin lispro (ADMELOG SOLOSTAR U-100 INSULIN) 100 unit/mL inpn Inject subcutaneously three times daily before meals. Take 1 unit when blood sugar is above 200 or higher. DANITZA PAYNE oxybutynin ER (DITROPAN XL) 15 mg 24 hr Extended Rel Tab TAKE 1 TABLET BY MOUTH DAILY triamcinolone acetonide (KENALOG) 0.1 % ointment APPLY TO AFFECTED AREA(S) ON LEGS TWICE A DAY NEEDED *USE 2 WEEKS ON, 1 WEEK OFF *NOT FOR FACE, ARMPITS aspirin, enteric coated (ECOTRIN LOW STRENGTH) 81 mg EC tablet Take 1 tablet by mouth once daily. loratadine (CLARITIN) 10 mg tablet Take 1 tablet by mouth once daily. alogliptin 25 mg tab Take 1 tablet by mouth once daily. Pramipexole 0.75 mg tablet Take 1 tablet by mouth daily at bedtime. magnesium oxide (MAG-OX) 400 mg tablet Take 1 tablet by mouth twice daily. sertraline (ZOLOFT) 50 mg tablet Take 1/2 tab once a day orally for one week then 1 tab once a day enalapril (VASOTEC) 2.5 mg tablet Take 1 tablet by mouth once daily. furosemide (LASIX) 40 mg tablet TAKE 1 TABLET DAILY spironolactone (ALDACTONE) 25 mg tablet TAKE 1 TABLET DAILY atorvastatin (LIPITOR) 10 mg tablet TAKE 1 TABLET DAILY carvedilol (COREG) 25 mg tablet TAKE 1 TABLET TWICE A DAY insulin glargine (BASAGLAR KWIKPEN) 100 unit/mL (3 mL) inpn Inject 21 Units subcutaneously every evening. fluticasone (FLONASE) 50 mcg/actuation nasal spray Use 2 Sprays in each nostril once daily. ONETOUCH ULTRA TEST test strip USE TO TEST BLOOD SUGAR THREE TIMES A DAY Lancets lancets Test blood sugar(s) 3 times daily. Blood-Glucose Meter (FREESTYLE SYSTEM KIT) monitoring kit 1 Each as needed. repaglinide (PRANDIN) 2 mg tablet Take 1-2 tablets each meal Insulin Syringe-Needle U-100 (INSULIN SYRINGE) 1/2 mL 30 x 5/16 syrg Use 1 syringe for each dose 1/day insulin needles, DISPOSABLE, (PEN NEEDLE) 31 gauge x 5/16 ndle Use one needle per dose. 1 per day. ALLERGIES: Allergies As of Date: 04/01/2018 Allergen Noted Reaction ADHESIVE TAPE (ROSINS) 03/27/2006 Itching LATEX 01/10/2011 Rash SIMVASTATIN 11/04/2012 Other: See Comments Fully Assessed 04/01/2018 PAST SURGICAL HISTORY Procedure Laterality Date - APPENDECTOMY 2006 - COLONOSCOP W/ OR W/O [facility] SPEC 10/08/06 - COLONOSCOP W/ OR W/O [facility] SPEC 09/18/2011 Colonoscopy - COLONOSCOP W/ OR W/O [facility] SPEC 09/27/2016 Colonoscopy - DESTR LES BENIGN/ PREMAL 02/06/12 Ablation anal condyomata - EGD 09-01-15 - INSERT DUAL CHAMBER ICD 09/03/13 pacemaker/defibulator - KNEE SCOPE,DIAGNOSTIC right - LAPAROSCOPY, SURGICAL, APPENDECTOMY 10/22/06 - PAST SURGICAL HISTORY OF Right 11-14 ganglion cyst - PAST SURGICAL HISTORY OF Left 2016 cyst removed from left foot - REMOVEANDREPLACE ICD PULSE GEN 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 Asthma: no. Eczema: no. Cystic fibrosis: no. Immunodeficiency: no. SOCIAL HISTORY: Social History Marital status: Spouse name: Years of education: Number of children: 2 Occupational History Occupation Employer Comment [employer] Social History Main Topics Smoking status: Never Smoker Smokeless tobacco: Never Used Alcohol use: No Comment: seldom Drug use: No Sexual activity: Not Currently Partners with: Male Other Topics Concern Caffeine Concern Yes Comment:pop, tea Special Diet No Comment:average Exercise No Comment:sedentary Not working currently ENVIRONMENTAL HISTORY: Lives in a trailer. Age of home: 40 years Heating: propane Woodburning fireplace in the home: no Air conditioning: Central air Basement: No basement Ortiz: [id number] carpeting Dust mite controls: Dust mite controls are not in place. Pets in the home: 2 dogs Outdoor animals: There are no outdoor animals Tobacco smoke: No exposure in the home. Physical Exam: GENERAL APPEARANCE:Well appearing, alert, in no acute distress, well-hydrated, well nourished. HEENT: NCAT. EYES: conjunctiva and sclera normal. EARS: External ears normal. Canals clear. TM's normal. NOSE/SINUS: Nares normal. Septum midline. Mucosa normal. No drainage or sinus tenderness. THROAT: no erythema NECK:neck supple, no adenopathy HEART:RRR with normal S1 and S2 ,no murmurs, no gallops, no rubs LUNGS: clear to auscultation bilaterally, no wheezes, rales or rhonchi ABDOMEN:soft, nontender, nondistended, without organomegaly or palpable masses EXTREMITIES:Extremities normal, No deformities, No skin discoloration and No edema SKIN: Skin color, texture, turgor normal. No rashes or lesions. ALLERGY SKIN TESTS:Negative to inhalants, latex, shellfish and mollusks ASSESSMENT/PLAN: 1.) Nonallergic Rhinitis Recommend regular use of fluticasone nasal spray 2 sprays each nostril once daily. She may take Claritin 10 mg once daily as needed for itching, sneezing or runny nose. 2.) Cough Spirometry and exhaled nitric oxide will be obtained prior to her next visit. 3.) Toxic effect latex: Latex skin tests were negative at today's visit. A latex specific IgE level will be obtained to evaluate further for possible severe, immediate, IgE?mediated latex hypersensitivity. 4.) Adverse reaction food: Allergy skin teststo shellfish and mollusks were negative. Patient is at low risk for a severe, immediate, IgE?mediated reaction to shellfish and mollusks. 5.) Discussed medication dosage, usage, side effects, and goals of treatment in detail. 6 ) Follow-up in 1 month with fahad and shantelle - patient will return sooner should new symptoms or problems arise. Justin Johnson MD INHALANT 40 PERCUTANEOUS AND INTRADERMAL TESTING/ Mean Wheal AND Flare Diameter (mm) Patient has been identified by name and date of : Yes . Skin test applied by : Joanne Adams RN Interpreted By: Justin Johnson M.D. * Clinical significant reactions are regarded as a wheal diameter greater than or equal to 3 mm with a flare diameter greater or equal to 6mm. ALLERGENS 1. Negative Control: 50%Glycerin/50%Cocas P: W = 0 mm F = 0 mm 2. Cat Hair 10,000 BAU/ml P: W = 0 mm F = 0 mm 3. Dog Epithelial 1:20 P: W = 0 mm F = 0 mm 4. Cockroach Mix 1:20 P: W = 0 mm F = 0 mm 5. Mite Df 10,000 AU/ml P: W = 0 mm F = 0 mm 6. Mite Dp 10,000AU/ml P: W = 0 mm F = 0 mm 7. Alternaria Alternata 1:10 P: W = 0 mm F = 0 mm 8. Aspergillus Fumigatus 1:20 P: W = 0 mm F = 0 mm 9. Cladosporium sphearospermum 1:20 P: W = 0 mm F = 0 mm 10. Epicoccum Nigrum 1:10 P: W = 0 mm F = 0 mm 11. Fusarium Solani 1:40 P: W = 0 mm F = 0 mm 12. Bipolaris Sorokiniana 1:20 P: W = 0 mm F = 0 mm 13. Penicillium Mix 1:20 P: W = 0 mm F = 0 mm 14. Greg, White 1:20 P: W = 0 mm F = 0 mm 15. Beech, Nicaraguan 1:20 P: W = 0 mm F = 0 mm 16. Birch Mix 1:20 P: W = 0 mm F = 0 mm 17. Maple Mix 1:20 P: W = 0 mm F = 0 mm 18. [place] ,Eastern 1:20 P: W = 0 mm F = 0 mm 19. Elm, Nicaraguan 1:20 P: W = 0 mm F = 0 mm 20. [place], Shagbark 1:20 P: W = 0 mm F = 0 mm 21. [place] Tree, Red 1:20 P: W = 0 mm F = 0 mm 22. [place], Black 1:20 P: W = 0 mm F = 0 mm 23. [place], Nicaraguan/Eastern 1:20 P: W = 0 mm F = 0 mm 24. Hurley Pollen, Black 1:20 P: W = 0 mm F = 0 mm 25. Glenwood, Black 1:20 P: W = 0 mm F = 0 mm 26. Bermuda Grass 10,000 BAU/ml P : W = 0 mm F = 0 mm 27. [place], Blue/Amada 100,000 BAU/ml P: W = 0 mm F = 0 mm 28. Fescue, [place] 100,000 BAU/ml P: W = 0 mm F = 0 mm 29. Zak Grass 1:20 P: W = 0 mm F = 0 mm 30. Orchard Grass 100,000 BAU/ml P: W = 0 mm F = 0 mm 31. Perennial Ozark, 100,000 BAU/ml P: W = 0 mm F = 0 mm 32. Varun 100,000 BAU/ml P: W = 0 mm F = 0 mm 33. Cocklebur 1:20 P: W = 0 mm F = 0 mm 34. [place], sheep 1:20 P: W = 0 mm F = 0 mm 35. Plantain, Canadian 1:20 P: W = 0 mm F = 0 mm 36. Lambs Quarters 1:20 P: W = 0 mm F = 0 mm 37. Rangel Elder, Burweed 1:20 P: W = 0 mm F = 0 mm 38. Pigweed, Rough 1:20 P: W = 0 mm F = 0 mm 39. Ragweed, Mix 1:20 P: W = 0 mm F = 0 mm 40. HISTAMINE, positive control(Histamine base 6mg/ml) P: W = 5 mm F = 20 mm LATEX PERCUTANEOUS TESTING/ Mean Wheal AND Flare Diameter Patient has been identified by name and date of : Yes . Skin test applied by : Joanne Adams RN Interpreted By: Dr. Justin Johnson MD * Clinical significant reactions are regarded as a wheal diameter greater than or equal to 3 mm with a flare diameter greater or equal to 6mm. ALLERGENS 1. High Ammoniated Latex P: W = 0 mm F = 0 mm 2. Low Ammoniatex Latex P: W = 0 mm F = 0 mm 3. Solid Latex - glove P: W = 0 mm F = 0 mm FOOD ALLERGEN PERCUTANEOUS SKIN TESTING Mean Wheal AND Flare Diameter ( mm) Patient has been identified by name and date of : Yes . Skin test applied by : Joanne Adams RN Interpreted By: Justin Johnson M.D. * Clinical significant reactions are regarded as a wheal diameter greater than or equal to 3 mm with a flare diameter greater or equal to 6mm. ALLERGENS: SHELLFISH 1. Clam 1:20 P: W = 0 mm F = 0 mm 2. Crab 1:20 P: W = 0 mm F = 0 mm 3. Lobster 1:20 P: W = 0 mm F = 0 mm 4. Oyster 1:20 P: W = 0 mm F = 0 mm 5. Scallop 1:20 P: W = 0 mm F = 0 mm 6. Shrimp 1:20 P: W = 0 mm F = 0 mm Patient was instructed on allergy (prick and intradermal) testing. Topical Pramasone cream applied to testing site per Dr. Johnson's instruction. Joanne Adams RN CNPN Observed: 03/25/2018 Status: COMPLETED Source: [facility] 12:00 AM CLINIC OTHER CAMPUS REPOSITORY Telephone (AGCARDUrbitaRA) WILLIAMMICHELLE PUTNAM ([id number]) 1965 F Date Time Provider Department 03/25/18 KO LEE ([facility]) AGCARDAdjacent Applications During your visit today, we recorded the following information about you: Ilda Lee, MSN, MATERIALS ANALYST.CASHIER CHECKER 03/25/2018 3:59 PM Signed Michelle Mcguire William is s/p ICD gen change, she lives in [place]. Yasmeen can you please call her to check the status of her wound. A f/u in one year should be scheduled with me or Dr. Wheeler. Ilda Lee, MSN, MATERIALS ANALYST.CAROL Vazquez RN 03/25/2018 4:02 PM Signed LM for patient to call [facility] to discuss. AFRICA Price 03/25/2018 4:13 PM Signed Patient scheduled for 03/31/19 at 11am. LMOVM to call back to confirm appt. Janet Gonsalez, Clay Digger Ryan Fernandes MA 03/26/2018 8:35 AM Signed Pt called to confirm new appt. With Dr. Wheeler. Ryan Fernandes MA 03/26/2018 08:35:30 Yasmeen Vazquez RN 03/26/2018 8:43 AM Signed Spoke with patient. She states that her wound is healing well. No redness, edema or pain noted. She will call office with any concerns. Yasmeen Vazquez RN Allergies As of Date: 03/25/2018 Noted Allergy Reaction ADHESIVE TAPE (ROSINS) 03/27/2006 9 - Itching LATEX 01/10/2011 2 - Rash SIMVASTATIN 11/04/2012 14 - Other: See Comments Comments: myalgia Date Reviewed: 03/12/2018 Reviewed by: Ana (Rn) AFRICA Lake - Fully Assessed Reason for Visit: Follow Up [171] Prescriptions as of 03/25/2018 Sig: CEPHALEXIN 500 MG CAPSULE Take 1 capsule by mouth three* BLOOD-GLUCOSE METER KIT 1 Each as needed. CLINDAMYCIN HCL 300 MG CAPSULE Take 1 capsule by mouth three* INSULIN LISPRO (U-100) 100 UN* Inject subcutaneously three t* OXYBUTYNIN CHLORIDE ER 15 MG * TAKE 1 TABLET BY MOUTH DAILY TRIAMCINOLONE ACETONIDE 0.1 %* APPLY TO AFFECTED AREA(S) ON * ASPIRIN 81 MG TABLET,DELAYED * Take 1 tablet by mouth once d* LORATADINE 10 MG TABLET Take 1 tablet by mouth once d* ALOGLIPTIN 25 MG TABLET Take 1 tablet by mouth once d* PRAMIPEXOLE 0.75 MG TABLET Take 1 tablet by mouth daily * MAGNESIUM OXIDE 400 MG (241.3* Take 1 tablet by mouth twice * PANTOPRAZOLE 40 MG TABLET,DEL* Take 1 tablet by mouth twice * SERTRALINE 50 MG TABLET Take 1/2 tab once a day orall* ENALAPRIL MALEATE 2.5 MG TABL* Take 1 tablet by mouth once d* FUROSEMIDE 40 MG TABLET TAKE 1 TABLET DAILY SPIRONOLACTONE 25 MG TABLET TAKE 1 TABLET DAILY ATORVASTATIN 10 MG TABLET TAKE 1 TABLET DAILY CARVEDILOL 25 MG TABLET TAKE 1 TABLET TWICE A DAY INSULIN GLARGINE (U-100) 100 * Inject 21 Units subcutaneousl* FLUTICASONE 50 MCG/ACTUATION * Use 2 Sprays in each nostril * ONETOUCH ULTRA TEST STRIPS USE TO TEST BLOOD SUGAR THREE* LANCETS Test blood sugar(s) 3 times d* BLOOD-GLUCOSE METER KIT 1 Each as needed. REPAGLINIDE 2 MG TABLET Take 1-2 tablets each meal Patient taking differently: Take 1-2 tablets three times * INSULIN SYRINGE-NEEDLE U-100 * Use 1 syringe for each dose 1* PEN NEEDLE, DIABETIC 31 GAUGE* Use one needle per dose. 1 pe* Problem List As Of Date 03/25/2018 Noted Resolved Pure hypercholesterolemia [E78.00] Priority: A Diabetes mellitus (HCC) [E11.9] 08/16/2016 Priority: Moderate More... Essential hypertension, benign [I10] Priority: B Unspecified disorder of joint [719.9] 11/23/2016 More... 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 Cardiomyopathy, nonischemic [I42.8] INVALID FOR* Abnormality of gait [R26.9] INVALID FOR* DM (diabetes mellitus), type 2, uncontrolled w/*INVALID FOR*12/21/2015 Chronic nausea [R11.0] INVALID FOR*09/01/2015 Ganglion cyst of right foot [M67.471] INVALID FOR* ICD (implantable cardioverter-defibrillator) in*INVALID FOR*08/16/2016 Biventricular ICD (implantable cardioverter-def*INVALID FOR* Uncontrolled type 2 diabetes mellitus with diab*INVALID FOR* More... Neuropathy (HCC) [G62.9] INVALID FOR*08/16/2016 Restless leg syndrome [G25.81] INVALID FOR* Peroneal tendinitis [M76.70] INVALID FOR* Pain in joint, ankle and foot [M25.579] INVALID FOR* Encounter Status:Closed by RYAN FERNANDES MA on 03/26/18 ENDOCRINOLOGY VISIT Observed: 03/24/2018 Status: F Source: [facility] REPORT 1:04 PM [facility] REPOSITORY [facility] [address] [place] [address]. [address] [place] [address] OFFICE VISIT Date of Service: 03/24/18 MR#: [id number] Acct: [id number] Name: WILLIAMMICHELLE Mcguire Rep #: [id number] : 1965 Provider: Lissette Payne NP Age/Sex: 52/F Location[place] [facility] [place]: Signed HPI History of present illness HPI History of present illness Michelle Thomas is a 52 year old female who presents for follow up of diabetes type 2. Diagnosed in 2002. Continues on prandin, basaglar 35 units daily. Pt denies difficulty with injections or self monitoring of BG. Denies any signs of infection or irritation at site of injections. Reports taking insulin as directed Recently had to stop her metformin due to cardiac issues. Her BG readings which had bee doing extremely well have destablized and now are uncontrolled and high. Placed on humalog sliding scale using 1 unit per 50 BG points. At time of visit: -Pt denies symptoms of hypertensive emergency (CP,SOB,HUGHES, or blurred vision) and hypotension(dizziness or lightheadedness) -Pt denies symptoms of hypoglycemia ( sweaty, confusion, anxiety, tremor, hunger, palpitations) and hyperglycemia ( polydipsia, polyuria) -Pt denies potential medication adverse effect. Hypoglycemia Aware of hypoglycemia: yes Able to self treat low BG: Yes Frequent low Blood sugar: No Has supply of glucagon: no Diet has been eating 3 meals daily. Can carb count Occ bedtime snack SMBG average 300 range 168-500 Checks 3-4 times daily Exam Const General: comfortable, no acute distress Nutritional Appearance: well nourished, overweight Orientation: oriented x3 HENMT Head: normal to inspection, normocephalic Ears: hearing grossly normal bilaterally Mouth: oral mucosae normal, moist mucous membranes Teeth and gingiva: dentition normal Eyes General: appearance normal, both eyes and all related structures Eyelids: eyelids normal Conjunctivae: conjunctivae normal Sclera: sclerae normal Pupils: PERRL Neck Neck: normal visual inspection, no lymphadenopathy Resp Effort AND Inspection: normal respiratory effort, able to speak in complete sentences, symmetric chest movement Auscultation: Bilateral: Clear to Auscultation Cardio Rate: regular rate Rhythm: regular rhythm Heart Sounds: S1 normal, S2 normal GI Inspection: normal to inspection Auscultation: normal bowel sounds Palpation: soft Skin General: no rashes or lesions noted Wounds: no wounds Diabetic Foot Pulses: L dorsalis pedis pulse: normal, R dorsalis pedis pulse: normal Monofilament test: Left foot: normal Neuro General: gait normal, moves all extremities Cognition: normal cognition Speech: speech normal Gait: normal gait Extrem General: normal to inspection, no pedal edema Psych Appearance: well kempt Mental Status: mental status grossly normal Mood: congruent mood Affect: normal affect Speech and Movement: speech and movement normal Attitude: cooperative Thought Process: normal Thought Content: normal Judgment: judgment good Weight and fatigue symptoms: Denies snoring Cardiopulmonary symptoms: Denies chest pain at rest, dyspnea on exertion, lightheadedness or myalgias GI symptoms: Denies constipation, diarrhea, nausea/dyspepsia or vomiting Other symptoms: Denies blurry vision or change in vision Type: type 2 Glucose control symptoms: Reports high fasting glucose and high post-meal glucose Cardiopulmonary symptoms: Denies chest pain at rest or dizziness GI symptoms: Denies constipation, diarrhea, nausea/dyspepsia, vomiting or increased hunger Other symptoms: Reports depression; denies blurry vision or change in vision Self monitoring: Yes Percentage of fasting blood glucose within goal: <25% of the time Dietary compliance: Diabetes: other Diabetes education in past year: Yes Glucose testing: demonstrates correct use of meter day education - understands ketone testing: Yes Physical activity: regular Intake Vital Signs03/24/18 Height 5 ft 9 in 03/24/18 Weight: 221 lb 03/24/18 Body Mass Index (BMI) 32.6 03/24/18 Blood Pressure 130/70 Intake Visit Reasons: Diabetes 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 [Ecotrin] 81 mg PO DAILY 04/18/13 [History Confirmed 03/24/18] Furosemide [Lasix] 40 mg PO DAILY #30 tab 04/24/13 [Rx Confirmed 03/24/18] Magnesium Oxide [Mag-Ox 400] 400 mg PO BID #30 tab 06/01/13 [Rx Confirmed 03/24/18] alogliptin 25 mg tablet 25 mg PO DAILY 08/12/17 [History Confirmed 03/24/18] atorvastatin 10 mg tablet 10 mg PO DAILY 08/12/17 [History Confirmed 03/24/18] carvedilol 12.5 mg tablet 25 mg PO BID tab 08/12/17 [History Confirmed 03/24/18] loratadine 10 mg tablet 10 mg PO DAILY 08/12/17 [History Confirmed 03/24/18] oxybutynin chloride 5 mg tablet 15 mg PO DAILY 08/12/17 [History Confirmed 03/24/18] pantoprazole 40 mg tablet,delayed release 40 mg PO BID tab 08/12/17 [History Confirmed 03/24/18] pramipexole 0.25 mg tablet 0.75 mg PO QHS tab 08/12/17 [History Confirmed 03/24/18] spironolactone 25 mg tablet 25 mg PO DAILY 08/12/17 [History Confirmed 03/24/18] repaglinide 2 mg tablet See Label Instructions PO TID #240 tab 10/07/17 [Rx Confirmed 03/24/18] Enalapril Maleate [Vasotec] 2.5 mg PO DAILY 11/07/17 [History Confirmed 03/24/18] Sertraline HCl [Zoloft] 50 mg PO DAILY 03/04/18 [History Confirmed 03/24/18] insulin lispro (U-100) 100 unit/mL subcutaneous solution See Label Instructions SC TID #3 ml 03/11/18 [Rx Confirmed 03/24/18] insulin syringe-needle U-100 0.5 mL 31 gauge x 16 See Dose Instructions .ROUTE .MEDSUPPLY #90 ea 03/11/18 [Rx Confirmed 03/24/18] Carlos Gaston U-100 Insulin 100 unit/mL (3 mL) subcutaneous 44 unit SC DAILY #15 ml NS 03/24/18 [Rx Confirmed 03/24/18] OneTouch Delica Lancets 30 gauge See Dose Instructions .ROUTE .MEDSUPPLY #300 ea NS 03/24/18 [Rx Confirmed 03/24/18] OneTouch Ultra Blue Test Strip See Dose Instructions .ROUTE .MEDSUPPLY #300 ea NS 03/24/18 [Rx Confirmed 03/24/18] insulin lispro (U-100) 100 unit/mL subcutaneous pen 4 unit SC TID #15 ml 03/24/18 [Rx Confirmed 03/24/18] pen needle, diabetic 32 gauge x 532 See Dose Instructions .ROUTE .MEDSUPPLY #200 ea 03/24/18 [Rx Confirmed 03/24/18] Patient : No [facility] Medical History Gout (Acute) Heart disease (Acute) Nonischemic dilated cardiomyopathy (Acute) Arthritis (Chronic) Diabetes type 2, controlled (Chronic) HTN (hypertension) (Chronic) Headache (Chronic) Hyperlipidemia (Chronic) Pulmonary HTN (Chronic) RLS (restless legs syndrome) (Chronic) Seasonal allergies (Chronic) Surgical History H/O colectomy (Acute) History of hysteroscopy (Acute) History of left heart catheterization (Acute) Hx of appendectomy (Acute) Family History Father Heart disease Myocardial infarction CAD (coronary artery disease) Mother CAD (coronary artery disease) Heart disease Social History Smoking Status: Never smoker second hand exposure: No alcohol intake: current alcohol intake frequency: a few times a month substance use type: does not use ROS Const Constitutional: No body ache, chills, fever(s) or night sweats Eyes Eyes: No blurry vision or change in vision ENT ENT: No ear discharge, nasal congestion, nosebleed/epistaxis, ear pain or ear pressure Resp Respiratory: Positive for cough Cough: Yes non-productive and shortness of breath (with cough) Cardio Cardiology: Positive for generalized swelling; no chest pain with exertion or chest pain at rest Gastro GI: No constipation, diarrhea, nausea/dyspepsia, vomiting or abdominal pain Genitourinary-Female: No burning urination, painful urination, difficulty urinating or urinary urgency Musc Musculoskeletal: Positive for joint pain (L knee had injections ) Skin Skin: No rash, skin pain or sores Neuro Neurology: No dizziness or fainting Psych Psychiatric: Positive for depression Endo Endocrine: Positive for change in body appearance (weigth gain); no increased thirst/drinking or increased hunger Reddy/Lymp Hematologic/Lymphatic: Positive for easy bruising (has always been); no easy bleeding Assessment AND Plan 1. Diabetes mellitus type 2 in obese E11.9; E66.9 t Plan Labs today Start meal insulin 2 units base. Increase as needed based on 1 unit per 50 BG points. May correct post meal at 2 hours Track meals, BG readings and insulin use RTC 3 weeks Call if you need assistance or are unsure of insulin. 2. Hyperlipidemia associated with type 2 diabetes mellitus E11.69; E78.5 On statin. Tolerating well. Chol 112, TRI 129, LDL 48, Plan Continues to do well with statin use. Medications New: OneTouch Delica Lancets (lancets) As directedwith device up to 3 times daily N S Changed: From: Basaglclementine WeissikPen U-100 Insulin (insulin g35 units (0.35 mL) subcut DAILY glucose c largine) ontrol NS 3. Essential hypertension I10 Plan BP well controlled. Taking medication as directed. No side effects. Plan Detail Other Orders Orders: Other Medications New: OneTouch Ultra Blue Test Strip (blood sugar Conner directed with device up to 3 times daily iagnostic) NS Additional Comments 1. Please schedule follow up in 3 months. 2. Lab work one week before appointment. 3. Discussed importance of regular exercise and recommend starting or continuing a regular exercise program for good health. 4. The patient was encouraged to lose weight for good health 5. The importance of monitoring blood sugar regularly was reviewed. 6. The importance of monitoring the HBA1c level regularly was reviewed. 7. The importance of prper foot care and regularly checking feet to prevent sores and loss of limbs was reviewed. 8. The importance of keeping BP at or below 130/80 to prevent stroke, heart attacks, kidney failure, blindness was reviewed. Spent approximately 45 minutes with patient with over 50% of time spent in discussion and counseling regarding medication adjustment, symptoms and treatment of hypoglycemia, diet adherence, and checking BG before driving. Coding Level of Care Code Off vis,est,level 4 Diagnoses Diabetes mellitus type 2 in obese E11.9; E66.9 Hyperlipidemia associated with type 2 diabetes mellitus E11.69; E78.5 Essential hypertension I10 Hypertension type: essential hypertension Time Spent (min) 45 03/24/18 1304 <Electronically signed by Lissette NOLAN> Date Lissette NOLAN Cosigner Signature: Date (if applicable) CC: MICROALB:CREAT Collected: 03/24/2018 Status: F Source: [facility] RATIO,RANDOM UR 12:01 PM [facility] REPOSITORY TYPE CODE TESTS RESULT OUT OF RANGE REFERENCE UNITS LAB L501.1200 NO RANGE EST. mg/dL Normal UR CREAT 148.00 LAB L502.0500 NO RANGE EST. mg/L Normal 5.5 MICROALBUMIN ,UR LAB L502.0600 <30 mg/g CRE mg/g CRE Normal 3.7 MALB:CREAT Performed By: #### L502.0250, L501.9985 #### [facility] [address] [place], [address] HEMOGLOBIN A1C Collected: 03/24/2018 Status: F Source: [facility] 12:01 PM [facility] REPOSITORY TYPE CODE TESTS RESULT OUT OF RANGE REFERENCE UNITS LAB L501.9985 4.2-6.3 % High HGB A1C 9.3 Performed By: #### L502.0250, L501.9985 #### [facility] [address] [place], [address] AST(SGOT) Collected: 03/24/2018 Status: F Source: [place] 12:01 PM [facility] REPOSITORY TYPE CODE TESTS RESULT OUT OF RANGE REFERENCE UNITS LAB L501.4100 15-37 U/L Normal AST 15 Performed By: #### L501.4100, L501.4405, L501.9520 #### [facility] [address] [place], [address] ALANINE AMINOTRANSFERAS Collected: 03/24/2018 Status: F Source: [facility]EN[facility] (SGPT) 12:01 PM [facility] REPOSITORY TYPE CODE TESTS RESULT OUT OF RANGE REFERENCE UNITS LAB L501.4405 13-56 U/L Normal ALT 24 Performed By: #### L501.4100, L501.4405, L501.9520 #### [facility] [address] [place], [address] THYROID STIM HORMONE Collected: 03/24/2018 Status: F Source: [place] (TSH) 12:01 PM [facility] REPOSITORY TYPE CODE TESTS RESULT OUT OF RANGE REFERENCE UNITS LAB L501.9520 0.358-3.74 uIU/mL Low TSH 0.27 Performed By: #### L501.4100, L501.4405, L501.9520 #### [facility] [address] [place], [address] PT ED Observed: 03/12/2018 Status: COMPLETED Source: [place] 2:15 PM [facility] REPOSITORY HNO ID: [id number] Author: Ana (Rn) AFRICA Lake Service: ASSESSMENT Author Type: Registered Nurse Type: Patient Education Filed: 03/12/2018 2:15 PM Note Text: Red folder patient education on wound care. ANES POST Observed: 03/12/2018 Status: COMPLETED Source: [place] 12:13 PM [facility] REPOSITORY HNO ID: [id number] Author: Kasandra Triplett Service: Anesthesiology Author Type: Physician Type: Anesthesia PostOp Filed: 03/12/2018 12:14 PM Note Text: POST ANESTHESIA EVALUATION NOTE SERVICE DATE: 03/12/2018 SERVICE TIME: 12:13 PM : 1965 Vitals: 03/12/18 0815 Temp: (!) 35.3 ?C (95.5 ?F) 03/12/18 1100 03/12/18 1115 03/12/18 1130 03/12/18 1200 BP: 127/74 120/81 124/68 125/94 03/12/18 1100 03/12/18 1115 03/12/18 1130 03/12/18 1200 Pulse: (!) 55 81 76 91 03/12/18 1100 03/12/18 1115 03/12/18 1130 03/12/18 1200 Resp: 16 21 17 16 03/12/18 0815 03/12/18 1045 03/12/18 1100 SpO2: 96% 95% 95% Validated Vital Signs: Yes POST ANES STATUS: No apparent anesthetic complications. The patient is appropriately hydrated with stable respiratory and cardiovascular status. Patient has safe and adequate airway control. The patient has appropriate pain relief and no significant post operative nausea or vomiting. The patient has achieved baseline mental status. Further assessment by Anesthesia Service: None Other Remarks: SIGNATURE: Kasandra Triplett MD PATIENT NAME: Michelle Thomas DATE: March 12, 2018 TIME: 12:13 PM PAGER/CONTACT #: [phone] NURSING PROG Observed: 03/12/2018 Status: COMPLETED Source: [place] 12:12 PM [facility] HNO ID: [id number] Author: Ana (Rn) [place] Lake Service: ASSESSMENT Author Type: Registered Nurse Type: Nursing Progress Note Filed: 03/12/2018 2:14 PM Note Text: 1415 Patient up to BR with assist. Right chest wall site remains soft, some bruising to the outter aspect but, remains soft. Patient places ICE off and on with good relief. Home instructions reinforced. States feeling much better. NURSING PROG Observed: 03/12/2018 Status: COMPLETED Source: [place] 11:16 AM [facility] REPOSITORY HNO ID: [id number] Author: Ana (Rn) [place] Lake Service: ASSESSMENT Author Type: Registered Nurse Type: Nursing Progress Note Filed: 03/12/2018 11:17 AM Note Text: 1115 patient rates incision pain 02/[address] Wheeler notified. Orders received to give morphine 4mg IVP. VSS Dressing D/I continue to monitor. HISTORY PHYSICAL Observed: 03/12/2018 Status: COMPLETED Source: [place] 10:37 AM [facility] REPOSITORY HNO ID: [id number] Author: Lilo Wheeler Service: Electrophysiology Author Type: Physician Type: HANDP Filed: 03/12/2018 10:38 AM Note Text: UPDATED HISTORY AND PHYSICAL EXAMINATION SERVICE DATE: 03/12/2018 SERVICE TIME: 0900 AM PHYSICAL EXAM MUST BE COMPLETED ON ADMISSION The History and Physical (completed in the past 30 days) has been reviewed and the patient has been examined. The contents accurately reflect the patient's condition with the following additions or revisions since the HANDP was completed. Examination indicates no changes. No acute distress, alert and oriented x3, comfortable, easy work of breathing, face symmetric, moving all extremities, skin warm and dry. Provisional Diagnosis/Treatment Plan: Procedure(s) (LRB): REMOVAL AND REPLACEMENT IMPLANTABLE DEFIBRILLATOR PULSE GENERATOR DUAL LEAD SYSTEM (N/A) This HANDP can be found in the Electronic Medical Record. SIGNATURE: Lilo Wheeler MD PATIENT NAME: Michelle Thomas DATE: March 12, 2018 TIME: 10:37 AM PAGER: [phone] ANES PREOP Observed: 03/12/2018 Status: COMPLETED Source: [place] 10:06 AM [facility] REPOSITORY HNO ID: [id number] Author: Kasandra Triplett Service: Anesthesiology Author Type: Physician Type: Anesthesia PreOp Filed: 03/12/2018 10:09 AM Note Text: ANESTHESIOLOGY DAY OF SURGERY NOTE SERVICE DATE: 03/12/2018 SERVICE TIME: 10:07 AM : 1965 Procedure(s) (LRB): REMOVAL AND REPLACEMENT IMPLANTABLE DEFIBRILLATOR PULSE GENERATOR DUAL LEAD SYSTEM (N/A) Surgeon(s): Lilo Wheeler Estimated body mass index is 32.67 kg/m? as calculated from the following: Height as of this encounter: 175.3 cm (5' 9). Weight as of this encounter: 100.3 kg (221 lb 3.2 oz). Most recent hematocrit and potassium results: Hematocrit 32.5 03/12/2018 Potassium 4.1 03/12/2018 ANES DOS/PREOP NOTE: Vitals: 03/12/18 0700 03/12/18 0815 BP: 124/57 Pulse: (!) 55 Resp: 18 Temp: (!) 35.3 ?C (95.5 ?F) SpO2: 96% Weight: 98.9 kg (218 lb) 100.3 kg (221 lb 3.2 oz) Height: 175.3 cm (5' 9) 175.3 cm (5' 9) ACTIVE PROBLEM LIST Pure Hypercholesterolemia Essential Hypertension, Benign Toxic Diffuse Goiter Anal Condyloma Anxiety Disorder in Conditions Classified Elsewhere Vitamin D Deficiency Family History of Colon Cancer Cardiomyopathy, Nonischemic (Hcc) Abnormality of Gait Ganglion Cyst of Right Foot Biventricular Icd (Implantable Cardioverter-Defibrillator) in Place Uncontrolled Type 2 Diabetes Mellitus With Diabetic Neuropathy, Without Long-Term Current Use of Insulin (Hcc) Restless Leg Syndrome Peroneal Tendinitis Pain in Joint, Ankle and Foot PAST MEDICAL HISTORY Diagnosis Date - Anxiety disorder in conditions classified elsewhere - Arthritis left knee with spur - Cardiomyopathy, nonischemic (HCC) 04/2013 - Degenerative joint disease involving multiple joints shoulders, right knee - Essential hypertension, benign - Family history of colon cancer 5y screening cycle - GERD (gastroesophageal reflux disease) - History of placement of internal cardiac defibrillator 09/03/2013 - Neuropathy (HCC) 02/09/2016 - Obesity, unspecified - Pure hypercholesterolemia - Restless leg syndrome 02/09/2016 - Snoring - Type II or unspecified type diabetes mellitus without mention of complication, not stated as uncontrolled - Vitamin D deficiency PAST SURGICAL HISTORY Procedure Laterality Date - APPENDECTOMY 2006 - COLONOSCOP W/ OR W/O [facility] SPEC 10/08/06 - COLONOSCOP W/ OR W/O [facility] SPEC 09/18/2011 Colonoscopy - COLONOSCOP W/ OR W/O [facility] SPEC 09/27/2016 Colonoscopy - DESTR LES BENIGN/ PREMAL 02/06/12 Ablation anal condyomata - EGD 09-01-15 - INSERT DUAL CHAMBER ICD 09/03/13 pacemaker/defibulator - KNEE SCOPE,DIAGNOSTIC right - LAPAROSCOPY, SURGICAL, APPENDECTOMY 10/22/06 - PAST SURGICAL HISTORY OF Right - ganglion cyst - PAST SURGICAL HISTORY OF Left 2016 cyst removed from left foot - TONSILLECTOMY AND ADENOIDECTOMY HX age 6 - TOTAL ABDOM HYSTERECTOMY 2005 menorrhagia/dysmenorrhea (negative for cancer) -- [place] FAMILY HISTORY Problem Relation Age of Onset - Colon Cancer Father in early 50s - Heart Father 55 [place] - Breast Cancer Mother in 50s - Diabetes Mother - Coronary Artery Disease Mother age early-mid 60's - Colon Cancer Paternal Grandmother - other (epilepsy) Son - Breast Cancer Daughter - other (heart murmur) Daughter Social History: Social History Substance Use Topics - Smoking status: Never Smoker - Smokeless tobacco: Never Used - Alcohol use No Comment: seldom No current facility-administered medications on file prior to encounter. Current Outpatient Prescriptions on File Prior to Encounter: Blood-Glucose Meter ([employer] LTDTOUCH ULTRA2) monitoring kit 1 Each as needed. clindamycin (CLEOCIN) 300 mg capsule Take 1 capsule by mouth three times daily. insulin lispro (ADMELOG SOLOSTAR U-100 INSULIN) 100 unit/mL inpn Inject subcutaneously three times daily before meals. Take 1 unit when blood sugar is above 200 or higher. BJ CHRISS oxybutynin ER (DITROPAN XL) 15 mg 24 hr Extended Rel Tab TAKE 1 TABLET BY MOUTH DAILY aspirin, enteric coated (ECOTRIN LOW STRENGTH) 81 mg EC tablet Take 1 tablet by mouth once daily. loratadine (CLARITIN) 10 mg tablet Take 1 tablet by mouth once daily. alogliptin 25 mg tab Take 1 tablet by mouth once daily. Pramipexole 0.75 mg tablet Take 1 tablet by mouth daily at bedtime. magnesium oxide (MAG-OX) 400 mg tablet Take 1 tablet by mouth twice daily. pantoprazole DR (PROTONIX) 40 mg tablet Take 1 tablet by mouth twice daily. sertraline (ZOLOFT) 50 mg tablet Take 1/2 tab once a day orally for one week then 1 tab once a day enalapril (VASOTEC) 2.5 mg tablet Take 1 tablet by mouth once daily. furosemide (LASIX) 40 mg tablet TAKE 1 TABLET DAILY spironolactone (ALDACTONE) 25 mg tablet TAKE 1 TABLET DAILY atorvastatin (LIPITOR) 10 mg tablet TAKE 1 TABLET DAILY carvedilol (COREG) 25 mg tablet TAKE 1 TABLET TWICE A DAY insulin glargine (BASAGLAR KWIKPEN) 100 unit/mL (3 mL) inpn Inject 21 Units subcutaneously every evening. fluticasone (FLONASE) 50 mcg/actuation nasal spray Use 2 Sprays in each nostril once daily. ONETOUCH ULTRA TEST test strip USE TO TEST BLOOD SUGAR THREE TIMES A DAY Lancets lancets Test blood sugar(s) 3 times daily. Blood-Glucose Meter (FREESTYLE SYSTEM KIT) monitoring kit 1 Each as needed. repaglinide (PRANDIN) 2 mg tablet Take 1-2 tablets each meal (Patient taking differently: Take 1-2 tablets three times daily before meal) Insulin Syringe-Needle U-100 (INSULIN SYRINGE) 1/2 mL 30 x 5/16 syrg Use 1 syringe for each dose 1/day insulin needles, DISPOSABLE, (PEN NEEDLE) 31 gauge x 5/16 ndle Use one needle per dose. 1 per day. triamcinolone acetonide (KENALOG) 0.1 % ointment APPLY TO AFFECTED AREA(S) ON LEGS TWICE A DAY NEEDED *USE 2 WEEKS ON, 1 WEEK OFF *NOT FOR FACE, ARMPITS Current Facility-Administered Medications: 0.9% NaCl 2-10 mL 2-10 mL INTRAVENOUS q 12 H Lilo Aleksandrovich Vitebskiy bacitracin 50,000 Units in sodium chloride 0.9 % 250 mL for irrigation 50,000 Units IRRIGATION ONCE Lilo Aleksandrovich Vitebskiy bacitracin 50,000 Units in sodium chloride 0.9 % 250 mL for irrigation 50,000 Units IRRIGATION ONCE Lilo Aleksandrovich Vitebskiy ceFAZolin iv piggyback 2 g in D5W (iso-osmotic) 100 mL (ANCEF) 2 g INTRAVENOUS ONCE Lilo Aleksandrovich Vitebskiy Allergies: ALLERGIES Allergen Reactions - Adhesive Tape (Natty* Itching - Latex Rash - Simvastatin Other: See Comments myalgia DOS EXAM: Adequate NPO status: Yes Anesthetic risks, benefits, alternatives, personnel and consent discussed: Yes Patient agrees to proceed: Yes Previous Anesthesia: No history of adverse event. Airway Assessment: MP 2; Neck ROM: Limited Flexion and Extension; Airway Evaluation: Thick neck Symptoms of Sleep Apnea: Hypertension, BMI > 35 and Age over 50 (52 year old) Dentition: Teeth intact Additional Physical Exam: Lungs: Patient health status unchanged since recent history and physical. See history and physical for exam findings. Cardiac: Patient health status unchanged since recent history and physical. See history and physical for exam findings. Additional Pertinent Findings: N/A Blood Products: Not anticipated for this procedure. Anesthetic Plan: MAC with Sedation and Standard ASA Monitors Pain Management Plan: Parenteral or Oral and per Surgical Service ASA Class: 3 Other Medical Problems: None Chronic Beta Awilda medication administered within 24 hours: N/A I have interviewed and examined the patient. I have reviewed the medical record and/or the pre-anesthesia evaluation, pertinent labs, and test results. Significant changes in the patient's condition since the History and Physical, not otherwise documented in primary service progress notes: No This contains updated information obtained within 48 hours of Surgery/Procedure. SIGNATURE: Kasandra Triplett MD PATIENT NAME: Michelle Thomas DATE: March 12, 2018 TIME: 10:07 AM CSN: [id number] BASIC PANEL Collected: 03/12/2018 Status: F Source: [facility] 8:25 AM [facility] SYSTEM REPOSITORY TYPE CODE TESTS RESULT OUT OF REFERENCE UNITS RANGE LAB NA(LOINC) 136-145 mEq/L Sodium Blood 136 LAB K(LOINC) 3.5-5.1 mEq/L Potassium Blood 4.1 LAB CL(LOINC) 98-107 mEq/L Chloride Blood 102 LAB CO2(LOINC) 21-32 mEq/L CO2 Blood 29 LAB GLU(LOINC) 70-99 mg/dL Glucose High Blood 173 LAB BUN(LOINC) 7-18 mg/dL BUN Blood 18 LAB CREA(LOINC 0.51-0.95 mg/dL ) Creatinine Blood 0.73 LAB CA(LOINC) 8.5-10.1 mg/dL Calcium Blood 8.7 LAB ANGAP(LOIN 8-16 C) Anion Gap 9 Performed By: #### P8 #### [place] [address] MDRD GFR Collected: 03/12/2018 Status: F Source: [facility] 8:25 AM HEALTH SYSTEM REPOSITORY TYPE CODE TESTS RESULT OUT OF RANGE REFERENCE UNITS LAB GFRFN(LOINC >60mL/min/1.73m ) 2 eGFR >60 Result Comment: If the patient is , multiply the result by 1.210. Performed By: #### GFR #### [facility] [address] [place] [id number] HEMOGRAM Collected: 03/12/2018 Status: F Source: [facility] 8:25 AM HEALTH SYSTEM REPOSITORY TYPE CODE TESTS RESULT OUT OF REFERENCE UNITS RANGE LAB WBC(LOINC) 3.98-10.04 thou/cmm WBC 8.31 LAB RBC(LOINC) 3.93-5.22 mil/cmm Low RBC 3.77 LAB HGB(LOINC) 11.2-15.7 g/dL Low Hgb 9.9 LAB HCT(LOINC) 34.1-44.9 % Low Hct 32.5 LAB MCV(LOINC) 79.4-94.8 fl MCV 86.2 LAB MCH(LOINC) 25.6-32.2 pg MCH 26.3 LAB MCHC(LOINC) 31.6-34.8 % Low MCHC 30.5 LAB RDW(LOINC) 11.7-14.4 % High RDW 15.6 LAB RDWSD(LOINC 36.4-46.3 fl ) High RDW SD 48.6 LAB PLT(LOINC) 182-369 thou/cmm Platelet 209 LAB MPV(LOINC) 9.4-12.3 fl MPV 10.7 Performed By: #### CBC1 #### [facility] [address] [place] [id number] NURSING PROG Observed: 03/12/2018 Status: COMPLETED Source: [place] 8:02 AM [facility] REPOSITORY HNO ID: [id number] Author: Ana (Rn) [place] Lake Service: ASSESSMENT Author Type: Registered Nurse Type: Nursing Progress Note Filed: 03/12/2018 8:05 AM Note Text: 0802 patient admitted to [facility], pre procedure teaching at bedside. Review of medications and moderate sedation teaching with patient and boyfriend. 12 LEAD ELECTROCARDIOGRAM Observed: 03/07/2018 Status: F Source: [place] 1:42 PM [facility] REPOSITORY [facility] Cardiovascular Services [address] [place] [address] 12 Lead EKG 03/04/18 1504 MR#: [id number] Acct: [id number] Name: MICHELLE THOMAS Rep #: [id number] : 1965 52 From: Jean Trujillo MD Attending Dr: Status: DEP ER Ordering Dr: Anu Castañeda MD Date: 03/04/18 Location: ED Sex: F C Admitted: Test Reason : CP Blood Pressure : / mmHG Vent. Rate : 059 BPM Atrial Rate : 059 BPM P-R Int : 120 ms QRS Dur : 128 ms QT Int : 492 ms P-R-T Axes : 044 107 067 degrees QTc Int : 487 ms Atrial-sensed ventricular-paced rhythm Biventricular pacemaker detected Abnormal ECG Confirmed by JEAN TRUJILLO MD ([id number]), editor magazine RADHA BETTS ([id number]) on 03/07/2018 1:42:03 PM Referred By: Tobias Martinez Confirmed By:JENA TRUJILLO MD 03/07/18 1342 Date Jean Trujillo MD CC: Tobias Martinez MD; Anu Castañeda MD; Mello Ding MD Signed EMERGENCY DEPARTMENT Observed: 03/05/2018 Status: F Source: [place] SUMMARY 12:53 AM [facility] REPOSITORY [facility] Medical Records Department [address] [place] [address] Emergency Department Summary 03/04/18 1550 MR#: [id number] Acct: [id number] Name: MICHELLE THOMAS Rep #: [id number] : 1965 52 From: Anu Castañeda MD PCP: Mello Ding MD Status: DEP ER - ER Visit Summary Date of Service: 03/04/18 Chief Complaint: Chest pain and shortness of breath History of Present Illness: The patient is a 52 F who presents for chest pain and shortness of breath that started yesterday. Patient was mercedes corn when it began. She describes it as a tightness and a squeezing sensation across the anterior chest both right and left, with radiation into the left shoulder. Patient denies any nausea, vomiting, abdominal pain, fever, congestion, rhinorrhea, calf pain or swelling. She has associated cough and shortness of breath, and pain is worsened by coughing and breathing deeply. Relieved by nothing. Pain is been constant since onset with waxing and waning in intensity. Patient denies any pain free interval since onset. She was seen by the nurse practitioner at her primary care doctor's office today, and had an elevated d-dimer. She was referred to the emergency department for further workup. She has a pacemaker/AICD that has a low battery. She is scheduled for device replacement in [address] [facility]. Patient had recent long car ride within the last 2 months. Denies surgery, history of DVT or PE, cancer, exogenous hormone use, or smoking. Physical Examination: Vital signs: afebrile, hemodynamically stable, no hypoxia on room air General: well nourished, well developed, in no distress Skin: warm, dry, no rash, no pallor HEENT: normocephalic and atraumatic; PERRL, EOMI, moist mucous membranes Cardiovascular: Bradycardic rate and regular rhythm without murmurs, no peripheral edema, 2+ pulses all distal extremities Respiratory: No increased work of breathing, lungs are clear to auscultation bilaterally, no rales, rhonchi or wheezing, pain reproduced with the deep breathing Abdominal: Abdomen is soft, nontender with normoactive bowel sounds, no guarding or rebound, no masses MSK: Moves all extremities, no deformities, normal strength Neuro: Awake and alert, oriented 4. No facial droop, sensation and motor function intact and symmetric Test Results: Abnormal Lab Results WBC 10.1 RBC 3.88 L Hgb 10.7 L Hct 33.8 L MCV 87.1 MCH 27.6 MCHC 31.7 L RDW 15.7 H RDW Differential 49.2 H Medications Given Discontinued Medications Hydrocodone Bitart/Acetaminophen (Vale 5mg-325mg) 1 tablet PO X1 ONE Stop: 03/04/18 17:49 Last Admin: 03/04/18 18:01 Dose: Aspirin (Aspirin, Baby) 243 mg PO X1 STA Stop: 03/04/18 15:50 Last Admin: 03/04/18 16:11 Dose: 243 mg Sodium Chloride () 1,000 mls @ 1,000 mls/hr IV .Q1H ONE Stop: 03/04/18 16:48 Last Admin: 03/04/18 16:11 Dose: 1,000 mls/hr Nitroglycerin (Nitrostat) 0.4 mg SUBLINGUAL Q5M JAZMÍN Stop: 03/04/18 16:11 Last Admin: 03/04/18 17:13 Dose: Admin: 03/04/18 17:13 Dose: Admin: 03/04/18 16:12 Dose: 0.4 mg Clinical Impression(s) from Imaging Studies Chest CTA 03/04/18 15:54 IMPRESSION: 1. Normal CTA chest examination, without a demonstrated pulmonary embolism or arterial dissection. 2. Cardiac pacemaker. 3. Degenerative changes. The thoracic spine. Electronically Signed: Liam Martinez DO at 16:45 EDT Tel [phone], Service support , Emergency Department Course and Treatment: Patient presents for chest pain with concern for possible PE and elevated d-dimer. EKG showed a paced rhythm without any ischemic changes. Troponin negative. Patient has had constant chest pain for 24 hours, thus a negative troponin makes acute coronary syndrome highly unlikely, especially with no ischemic EKG changes. Labs showed no leukocytosis. No electrolyte derangements. She was given aspirin and nitroglycerin, with worsening of the pain after 1 nitro. Thus no further nitro given. CTA showed no pulmonary emboli but did show concerning for thickening of the pericardial sac. Compared to an older CT, this is not a new finding, and there was no dependent thickening that would be concerning for a pericardial effusion instead. Patient was discussed with Dr. Hamilton regarding the chest pain and given that she has the prematurely depleted battery in her pacemaker/ICD. He agreed that it was very unlikely that that was related at all to her chest pain, especially given that it was functioning normally on EKG. Life-threatening causes of patient's pain were ruled out. Early pericarditis is on the differential, however patient had no fever, ST changes consistent with pericarditis, and given that she is unable to take NSAIDs and is diabetic, the risks of starting her on prednisone for treatment of possible pericarditis outweigh the potential benefits. Patient will take Tylenol as needed for pain. On reevaluation she was very well-appearing, and we discussed that there were multiple possibilities, including chest wall irritation, pleurisy, pericarditis, among other noncardiac causes of chest pain. She is to keep her appointment next week for her ICD replacement. She will return if any worsening of her condition. Treatment Plan: [] Disposition: [] Impression: Pleurisy, history of premature battery failure of pacemaker/ICD This note was generated with [employer] dictation software. It may contain incorrect words, spelling, and punctuation that were not noted in review of the chart prior to signing ED Disposition - Plan for ED Patient: Disposition: Home or Assisted Living Chief Complaint: Chest Pain Instructions: ED Chest Pain Pleurisy Referrals: Tobias Martinez MD [STAFF PHYSICIAN] - 3-5 Days if not improving Mello Ding MD [Primary Care Provider] - 1-2 Days if not improving Additional Instructions: Your chest scan was negative for any blood clots. Your workup did not show any concerns that your chest pain is from your heart. Because you cannot take nonsteroidal anti-inflammatory medication such as ibuprofen or naproxen, please use Tylenol for your pain. Take it scheduled for the next 1-2 days every 6 hours or until the pain has resolved. Keep your scheduled appointment next week for your pacemaker/defibrillator replacement. If you continue to have chest pain, please follow-up with Dr. Hamilton and Dr. Ding. If you have any worsening of your condition or any new concerning symptoms, return immediately to the emergency department for another evaluation. What to do if you have Problems For any increased pain, shortness of breath, bleeding, nausea or vomiting, chest pain, or any unexpected problems, contact your Primary Care Provider. Call [facility] [employer] [facility] ([phone]) or report to the closest Emergency Room. Call 911 if necessary. 03/05/18 0053 <Electronically signed by Anu Castañeda MD> Date Anu Castañeda MD Cosigner Signature (If Indicated): Date CC: Mello Ding MD DISCHARGE INSTRUCTION Observed: 03/05/2018 Status: F Source: [place] 12:34 AM [facility] REPOSITORY [facility] Medical Records Department [address] [place] [id number] Discharge Instruction 03/04/18 1748 MR#: [id number] Acct: [id number] Name: MICHELLE THOMAS Rep #: [id number] : 1965 52 From: Anu Castañeda MD PCP: Mello Ding MD Status: DEP ER ED Disposition - Plan for ED Patient: Disposition: Home or Assisted Living Chief Complaint: Chest Pain Instructions: ED Chest Pain Pleurisy Referrals: Mello Ding MD [Primary Care Provider] - 1-2 Days if not improving Tobias Martinez MD [STAFF PHYSICIAN] - 3-5 Days if not improving Additional Instructions: Your chest scan was negative for any blood clots. Your workup did not show any concerns that your chest pain is from your heart. Because you cannot take nonsteroidal anti-inflammatory medication such as ibuprofen or naproxen, please use Tylenol for your pain. Take it scheduled for the next 1-2 days every 6 hours or until the pain has resolved. Keep your scheduled appointment next week for your pacemaker/defibrillator replacement. If you continue to have chest pain, please follow-up with Dr. Hamilton and Dr. Ding. If you have any worsening of your condition or any new concerning symptoms, return immediately to the emergency department for another evaluation. What to do if you have Problems For any increased pain, shortness of breath, bleeding, nausea or vomiting, chest pain, or any unexpected problems, contact your Primary Care Provider. Call [facility] ([phone]) or report to the closest Emergency Room. Call 911 if necessary. 03/05/18 0034 <Electronically signed by Anu Castañeda MD> Date Anu Castañeda MD Cosigner Signature (If Indicated): Date CC: Mello Ding MD CTA CHEST W/WO Observed: 03/04/2018 Status: F Source: [place] CONTRAST 3:55 PM [facility] REPOSITORY [facility] Imaging Services [address] [place] [address] CTA Chest W/WO Contrast MR#: [id number] Acct: [id number] Name: MICHELLE THOMAS Rep #: [id number] : 1965 F 52 From: Liam Martinez DO PCP: Mello Ding MD Status: REG ER Study: CTA Chest W/WO Contrast Date of Exam: 03/04/18 Exam# [id number] Ordering Dr: Anu Castañeda MD STUDY: CTA CHEST REASON FOR EXAM: Female, 52 years old. Shortness of breath. Chest pain. Elevated d-dimer. History of hypertension and diabetes. RADIATION DOSAGE (If Supplied By Facility): CTDIvol = ( 14.97 ) mGy, DLP = ( 728.46 ) mGycm TECHNIQUE: The examination was performed with the intravenous administration of 100ml ml of Isovue 370 contrast material. Post-processing of the angiographic images was performed, with multiplanar reformation and 3D reconstruction. Individualized dose optimization techniques were used for this CT. COMPARISON: Chest, November 07, 2017. FINDINGS: Normal enhancement of the main pulmonary artery and right and left pulmonary arteries. Normal enhancement of the bilateral peripheral pulmonary arteries. There is no demonstrated pulmonary embolism. Normal thoracic aorta and visualized great vessels. There is no demonstrated aortic dissection. The heart is normal size. There is mild pericardial thickening versus small pericardial effusion. Pacer leads are seen in the right heart and along the posterior left heart border. Normal mediastinum. Normal hilar regions. Normal visualized trachea and bronchi. The lungs are well expanded. Normal pulmonary parenchyma. Normal pleura. The pacer generator is seen in the soft tissues of the left upper chest. The chest wall structures are otherwise unremarkable. There are degenerative changes of thoracic spine. Normal visualized upper abdomen. CT/CTA Chest W/WO Contrast IMPRESSION: 1. Normal CTA chest examination, without a demonstrated pulmonary embolism or arterial dissection. 2. Cardiac pacemaker. 3. Degenerative changes. The thoracic spine. Electronically Signed: Liam Martinez DO at 16:45 EDT Tel [phone], Service support , CC: Anu Castañeda MD; Mello Ding MD Quality Assurance Supervisor Trim: Signed CBC W/DIFF, AUTOMATED Collected: 03/04/2018 Status: F Source: [place] 3:11 PM [facility] REPOSITORY TYPE CODE TESTS RESULT OUT OF RANGE REFERENCE UNITS LAB L100.1000 4.4-11.0 K/mm3 Normal WBC 10.1 LAB L100.1200 4.2-5.4 M/mm3 Low RBC 3.88 LAB L100.1300 12.0-15.0 g/dl Low HGB 10.7 LAB L100.1400 37-47 % Low HCT 33.8 LAB L100.1500 81-99 fL Normal MCV 87.1 LAB L100.1600 27.0-32.0 pg Normal MCH 27.6 LAB L100.1700 32-36 g/gl Low MCHC 31.7 LAB L100.1810 11.6-14.6 % High RDW CV 15.7 LAB L100.1820 35.1-43.9 fl High RDW SD 49.2 LAB L100.1900 150-450 K/mm3 Normal PLT 241 LAB L100.2000 6.2-12.0 fl Normal MPV 10.4 LAB L100.2100 47-70 % High NEUT% 75.8 LAB L100.2200 19-41 % Low LY% 14.5 LAB L100.2300 0-10 % Normal MONO% 7.5 LAB L100.2400 0-5 % Normal EO% 1.4 LAB L100.2500 0-1 % Normal BASO% 0.5 LAB L100.2550 0.0-0.9 % Normal IM GRAN % 0.300 Result Comment: IG% - Immature Granulocytes (promyelocytes, myelocytes and metamyelocytes) > 1% indicates that a LEFT SHIFT is Present. LAB L100.2620 2.0-7.7 X10 3/uL Normal Absolute Neut 7.7 LAB L100.2720 0.83-4.51 X10 3/ul Normal Absolute Lymph 1.47 Performed By: #### L100.0100 #### [facility] [address] [place], [address] BASIC METABOLIC Collected: 03/04/2018 Status: F Source: [place] PROFILE ([facility]) 3:11 PM [facility] REPOSITORY TYPE CODE TESTS RESULT OUT OF RANGE REFERENCE UNITS LAB L501.0100 74-106 mg/dL High GLU 122 Result Comment: Fasting Glucose result from 100 to 125 mg/dL suggests IMPAIRED HOMEOSTASIS per A.D.A. criteria. Please note revised GLUCOSE reference range effective 2017. LAB L501.1000 7-18 mg/dL Normal BUN 14 LAB L501.1100 0.55-1.02 mg/dL Normal CREAT,SERUM 0.88 Result Comment: The validity of the calculated GFR AND GFRAA in patients over 70 years has not been determined. Clinical correlation is essential. LAB L501.1110 >60 mL/min Normal EST GFR 72 Result Comment: Non- GFR Calc LAB L501.1115 >60 mL/min Normal EST GFR - AA 87 Result Comment: GFR Calc LAB L501.1255 ml/min Normal Estimated CRCL 79.04 LAB L501.1300 10-20 RATIO Normal BUN/CRE 15.9 LAB L501.2200 8.5-10 mg/dL Normal .1 CA 8.7 LAB L501.5300 136-14 mmol/L Normal 5 NA 137 LAB L501.5600 3.5-5. mmol/L Normal 1 K 4.1 LAB L501.5900 98-107 mmol/L Normal CL 100 LAB L501.6100 21.0-3 mmol/L Normal 2.0 CO2 28.0 LAB L501.6200 5-15 Normal GAP 9 Performed By: #### L500.2500, L501.4010 #### [facility] [address] [place], [address] TROPONIN-I Collected: 03/04/2018 Status: F Source: [place] 3:11 PM [facility] REPOSITORY TYPE CODE TESTS RESULT OUT OF RANGE REFERENCE UNITS LAB L501.4010 <0.045 ng/mL Normal < 0.015 TROPONIN-I Result Comment: TROPONIN-I EXPECTED VALUES <0.045 Negative 0.045 - 0.590 Consistent with Cardiac Damage > OR = 0.600 Critical Value Not every elevated troponin is indicative of [place]. These values should be used with clinical judgement in examining the patient's clinical picture for diagnosis. To establish a diagnosis of [place] versus myocardial injury, there must be a demonstrated rise and/or fall in the troponin values, in addition to ischemic symptoms, EKG changes, new regional wall motion abnormality, and/or angiographical evidence. PLEASE NOTE: REFERENCE RANGES EDITED 17 Performed By: #### L500.2500, L501.4010 #### [facility] [address] [place], [address] XR CHEST 2V FRONTAL/LAT Observed: 03/04/2018 Status: F Source: [place] 1:29 PM [facility] REPOSITORY * * *Final Report* * * DATE OF EXAM: Mar 04 2018 1:29PM WOX [id number] - XR CHEST 2V FRONTAL/LAT / PROCEDURE REASON: multiple diagnoses * * * * Physician Interpretation * * * * EXAMINATION: CHEST RADIOGRAPH (2 VIEW FRONTAL and LATERAL) CLINICAL HISTORY: Pleurodynia Chest pain on breathing MQ: XC2_5 Comparison: 04/05/2011 RESULT: Lines, tubes, and devices: Transvenous pacemaker with multichamber leads. Lungs and pleura: No consolidation. No lung mass. No pleural effusion. Cardiomediastinal silhouette: Normal cardiomediastinal silhouette. Other: . IMPRESSION: No acute radiographic abnormality. Quality Assurance Supervisor Trim: DENISSE Transcribe Date/Time: Mar 04 2018 1:53P Dictated by : NICK ALBERTS MD This examination was interpreted and the report reviewed and electronically signed by: NICK ALBERTS MD on Mar 04 2018 1:54PM EST [id number] PROGRESS Observed: 03/04/2018 Status: COMPLETED Source: [place] 1:24 PM [facility] [place] REPOSITORY HNO ID: [id number] Author: Guilherme Maxwell (Rt) Margo Garvin Service: (none) Author Type: Programmer Analyst Consultant Type: Progress Notes Filed: 03/04/2018 1:30 PM Note Text: Radiology Service Progress Note PATIENT NAME: Michelle Thomas DATE OF SERVICE: March 04, 2018 TIME: 1:25 PM PATIENT IDENTITY VERIFICATION COMPLETED USING TWO (2) METHODS: Patient confirmed name verbally and Date of . PATIENT GENDER DATA: Female. status: : No status: NO. PATIENT RELEVANT IMPLANT DATA REVIEWED: Not Applicable RADIOLOGY DEPARTMENT: General X-ray: Exam(s) Completed: Chest X-Ray PERIPHERAL IV DATA: Not applicable SIGNED BY: RT Jared March 04, 2018 1:25 PM D-DIMER QUANTITATIVE Collected: 03/04/2018 Status: F Source: [place] (DVT/PE) 12:40 PM [facility] REPOSITORY Order Comment: CRITICAL VALUE VERIFIED. CALLED TO FRANCISCO MCMAHON 03/04/18 Nina Aranda. RESULTS READ BACK BY SAME . TYPE CODE TESTS RESULT OUT OF RANGE REFERENCE UNITS LAB L300.8000 0.27-0.49 FEU/ug/m High alert D-DIMER 0.65 QUANT Result Comment: D-Dimer ELEVATED (>0.49): Additional studies and clinical assessments are indicated to conclude diagnosis of: Deep Vein Thrombosis (DVT) or Pulmonary Embolism (PE) Performed By: #### L300.8000 #### [facility] [place] [address], [address] D DIMER Collected: 03/04/2018 Status: F Source: [place] 12:35 PM [facility] REPOSITORY TYPE CODE TESTS RESULT OUT OF REFERENCE UNITS RANGE LAB DDMER <500 ng/mL FEU Test D sent to [facility]. Result Comment: Account Credited EKG1 Observed: 03/04/2018 Status: F Source: [place] 12:04 PM [facility] REPOSITORY NAME : MICHELLE THOMAS PID : [id number] : 1965 Gender : Female Race : ORD : Procedure Date : Mar 04 2018 12:04:20 Edit Date : Mar 13 2018 14:32:05 Diagnosis:ATRIAL-SENSED VENTRICULAR-PACED RHYTHM BIVENTRICULAR PACEMAKER DETECTED ABNORMAL ECG Confirmed by KASANDRA HERRERA D.O. ([id number]) on 03/13/2018 2:31:58 PM Ventricular Rate : 62 BPM Atrial Rate : 62 BPM P-R Interval : 128 ms QRS Duration : 118 ms Q-T Interval : 474 ms QTC Calculation(Bezet) : 481 ms P [place] : 56 degrees R [place] : -26 degrees T [place] : 74 degrees Test Reason : Location : 185 [facility] Overread By : KASANDRA HERRERA D.O. Edited By : KASANDRA HERRERA D.O. Referred By : ALTHEA MALONE Acquired by : MCKENZIE CRUZ Observed: 03/04/2018 Status: COMPLETED Source: [place] 11:40 AM [facility] REPOSITORY Office Visit (FAMPWS) MICHELLE THOMAS ([id number]) 1965 F Date Time Provider Department 03/04/18 11:40 AM ALTHEA MALONE (CASHIER CHECKER) FAMPWS During your visit today, we recorded the following information about you: Temperature Pulse Respiration Blood pressure 97.9 degrees 62/minute 16/minute 116/66 Weight 98.9 kg Althea Malone APRN.CNP 03/04/2018 12:29 PM Signed This is a 52 year old female who presents today with: Patient presents with: Breathing Problem: x yesterday HISTORY OF PRESENT ILLNESS: Michelle Thomas is a 52 year old female. Patient presents with: Breathing Problem: x yesterday Pt presents today with complaint of chest hurting. Refers when she goes to breath/cough, it hurts worse. Symptoms started yesterday. Wasn't doing anything when it started. Describes in the mid upper sternal area that radiates to the left shoulder. Refers + body aches as well (abd muscles hurt when she coughs). No sickness. Just hurts to breath. She thought that maybe this was allergy related initially. No ear pain. No postnasal drip. No palpitations. No dizziness. No headache. No nausea/vomiting. Refers + shortness of breath. Refers that it took her awhile to get to sleep last night. Last travel was two months ago. No leg pain, redness, swelling. Refers if she has to sneeze or cough, the pain is worse. Nothing makes the pain feel better. Took one dose of tylenol last night. Refers that she is unable to take nsaids d/t cardiac status. Going next week to have the pacemaker changed d/t battery depletion. PAST MEDICAL HISTORY: PAST MEDICAL HISTORY Diagnosis Date - Anxiety disorder in conditions classified elsewhere - Arthritis left knee with spur - Cardiomyopathy, nonischemic (HCC) 04/2013 - Degenerative joint disease involving multiple joints shoulders, right knee - Essential hypertension, benign - Family history of colon cancer 5y screening cycle - GERD (gastroesophageal reflux disease) - History of placement of internal cardiac defibrillator 09/03/2013 - Neuropathy (HCC) 02/09/2016 - Obesity, unspecified - Pure hypercholesterolemia - Restless leg syndrome 02/09/2016 - Snoring - Type II or unspecified type diabetes mellitus without mention of complication, not stated as uncontrolled - Vitamin D deficiency PAST SURGICAL HISTORY Procedure Laterality Date - APPENDECTOMY 2006 - COLONOSCOP W/ OR W/O [facility] SPEC 10/08/06 - COLONOSCOP W/ OR W/O [facility] SPEC 09/18/2011 Colonoscopy - COLONOSCOP W/ OR W/O [facility] SPEC 09/27/2016 Colonoscopy - DESTR LES BENIGN/ PREMAL 02/06/12 Ablation anal condyomata - EGD 09-01-15 - INSERT DUAL CHAMBER ICD 09/03/13 pacemaker/defibulator - KNEE SCOPE,DIAGNOSTIC right - LAPAROSCOPY, SURGICAL, APPENDECTOMY 10/22/06 - PAST SURGICAL HISTORY OF Right 11-14 ganglion cyst - PAST SURGICAL HISTORY OF Left 2016 cyst removed from left foot - TONSILLECTOMY AND ADENOIDECTOMY HX age 6 - TOTAL ABDOM HYSTERECTOMY 2005 menorrhagia/dysmenorrhea (negative for cancer) -- Normangee ALLERGIES Adhesive Tape (Rosins); Latex; Simvastatin MEDICATIONS Current Outpatient Prescriptions: Blood-Glucose Meter ([employer] LTDTOUCH ULTRA2) monitoring kit 1 Each as needed. clindamycin (CLEOCIN) 300 mg capsule Take 1 capsule by mouth three times daily. insulin lispro (ADMELOG SOLOSTAR U-100 INSULIN) 100 unit/mL inpn Inject subcutaneously three times daily before meals. Take 1 unit when blood sugar is above 200 or higher. DANITZA PAYNE oxybutynin ER (DITROPAN XL) 15 mg 24 hr Extended Rel Tab TAKE 1 TABLET BY MOUTH DAILY triamcinolone acetonide (KENALOG) 0.1 % ointment APPLY TO AFFECTED AREA(S) ON LEGS TWICE A DAY NEEDED *USE 2 WEEKS ON, 1 WEEK OFF *NOT FOR FACE, ARMPITS aspirin, enteric coated (ECOTRIN LOW STRENGTH) 81 mg EC tablet Take 1 tablet by mouth once daily. loratadine (CLARITIN) 10 mg tablet Take 1 tablet by mouth once daily. alogliptin 25 mg tab Take 1 tablet by mouth once daily. Pramipexole 0.75 mg tablet Take 1 tablet by mouth daily at bedtime. magnesium oxide (MAG-OX) 400 mg tablet Take 1 tablet by mouth twice daily. pantoprazole DR (PROTONIX) 40 mg tablet Take 1 tablet by mouth twice daily. sertraline (ZOLOFT) 50 mg tablet Take 1/2 tab once a day orally for one week then 1 tab once a day enalapril (VASOTEC) 2.5 mg tablet Take 1 tablet by mouth once daily. furosemide (LASIX) 40 mg tablet TAKE 1 TABLET DAILY spironolactone (ALDACTONE) 25 mg tablet TAKE 1 TABLET DAILY atorvastatin (LIPITOR) 10 mg tablet TAKE 1 TABLET DAILY carvedilol (COREG) 25 mg tablet TAKE 1 TABLET TWICE A DAY insulin glargine (BASAGLAR KWIKPEN) 100 unit/mL (3 mL) inpn Inject 21 Units subcutaneously every evening. fluticasone (FLONASE) 50 mcg/actuation nasal spray Use 2 Sprays in each nostril once daily. ONETOUCH ULTRA TEST test strip USE TO TEST BLOOD SUGAR THREE TIMES A DAY Lancets lancets Test blood sugar(s) 3 times daily. Blood-Glucose Meter (FREESTYLE SYSTEM KIT) monitoring kit 1 Each as needed. albuterol HFA (PROAIR HFA) 90 mcg/actuation inhaler Inhale 2 Puffs as instructed every 4 hours as needed. repaglinide (PRANDIN) 2 mg tablet Take 1-2 tablets each meal (Patient taking differently: Take 1-2 tablets three times daily before meal) Insulin Syringe-Needle U-100 (INSULIN SYRINGE) 1/2 mL 30 x 5/16 syrg Use 1 syringe for each dose 1/day insulin needles, DISPOSABLE, (PEN NEEDLE) 31 gauge x 5/16 ndle Use one needle per dose. 1 per day. No current facility-administered medications for this visit. FAMILY HISTORY Problem Relation Age of Onset - Colon Cancer Father in early 50s - Heart Father 55 [place] - Breast Cancer Mother in 50s - Diabetes Mother - Coronary Artery Disease Mother age early-mid 60's - Colon Cancer Paternal Grandmother - other (epilepsy) Son - Breast Cancer Daughter - other (heart murmur) Daughter Social History Marital status: Spouse name: Years of education: Number of children: 2 Occupational History Occupation Employer Comment [employer]* Social History Main Topics Smoking status: Never Smoker Smokeless tobacco: Never Used Alcohol use: No Comment: seldom Drug use: No Sexual activity: Not Currently Partners with: Male Other Topics Concern Caffeine Concern Yes Comment:pop, tea Special Diet No Comment:average Exercise No Comment:sedentary EXAM: BP 116/66 (BP Site: Left Arm, BP Position: Sitting, BP Cuff Size: Large Adult) Pulse 62 Temp 36.6 ?C (97.9 ?F) (Tympanic) Resp 16 Wt 98.9 kg (218 lb) SpO2 95% BMI 32.19 kg/m? PHYSICAL EXAM: General Appearance: Well appearing, alert, in no acute distress, well-hydrated, well nourished.. Skin: Skin color, texture, turgor normal, no suspicious rashes or lesions. Head: Normocephalic, no masses, lesions, tenderness or abnormalities. Eyes: Anicteric sclera. Pupils are equally round and reactive to light. Extraocular movements are intact. . Ears: External ears normal, canals clear, Normal TMs bilaterally. Nose/Sinuses: Nares normal, septum midline, mucosa normal, no drainage or sinus tenderness. Oropharynx: Lips, mucosa, and tongue normal, teeth and gums normal, oropharynx normal. Neck: Supple, no adenopathy Lungs: Lungs clear to auscultation. No wheezing, rhonchi, rales. Heart: RRR without murmur, gallop, or rubs. No ectopy. Abdomen: Normal abdominal exam, Abdomen soft, non-tender. Bowel sounds normal. No masses, organomegaly. Musculoskeletal: No joint swelling, deformity, or tenderness. Peripheral Pulses: Normal. Neurologic: Gait normal. ASSESSMENT/PLAN: 1. Pleurodynia - ICD9: 786.52, ICD10: R07.81 (primary diagnosis) Atypical chest pain, symptoms are not consistent with cardiac ischemia due to nonexertional nature of symptom and pleuritic nature of pain possible etiology include Costochondritis/chest wall pain - Electrocardiogram: V paced - 100%. - Chest X-ray today. - ECG COMPLETE W INTERPRETATION - D-DIMER - XR CHEST 2V FRONTAL/LAT Discussed using tylenol, moist heat/ice for pain. She can also use plain robitussin if needed for cough. 2. Chest pain on breathing - ICD9: 786.52, ICD10: R07.1 - D-DIMER - XR CHEST 2V FRONTAL/LAT - COMPLETE ECG 3. SOB (shortness of breath) - ICD9: 786.05, ICD10: R06.02 - XR CHEST 2V FRONTAL/LAT Discussed with patient that if she has any worsening of symptoms or new symptoms, she should proceed to ER. Discussed treatment plan and patient voices understanding. Patient's questions answered appropriately. Medications and potential side effects were discussed and patient voices understanding. Return to the office as scheduled or as needed for worsening/no improvement. Althea Malone APRN.CAROL Malone APRN.CAROL 03/04/2018 12:20 PM Signed 1. Get labwork. 2. Get chest xray. 3. If pain worsens or shortness of breath worsens, or other symptoms develop -- please go to ER. Referring Provider: SELF [[id number]] Allergies As of Date: 03/04/2018 Noted Allergy Reaction ADHESIVE TAPE (ROSINS) 03/27/2006 9 - Itching LATEX 01/10/2011 2 - Rash SIMVASTATIN 11/04/2012 14 - Other: See Comments Comments: myalgia Date Reviewed: 03/04/2018 Reviewed by: Mari Pacheco Material Assistant - Fully Assessed Reason for Visit: Breathing Problem [17] Cmt: x yesterday Primary Visit Diagnosis:Pleurodynia [R07.81] Other Visit Diagnoses:Chest pain on breathing [R07.1] SOB (shortness of breath) [R06.02] Order(s):ECG COMPLETE W INTERPRETATION [ECG01] Order #: [id number] FUTURE D-DIMER [SQDDMER] Order #: [id number] FUTURE XR CHEST 2V FRONTAL/LAT [0815253] Order #: [id number] FUTURE COMPLETE ECG [[id number]] Order #: [id number]. #:[id number]: 1 Prescriptions as of 03/04/2018 Sig: BLOOD-GLUCOSE METER KIT 1 Each as needed. CLINDAMYCIN HCL 300 MG CAPSULE Take 1 capsule by mouth three* INSULIN LISPRO (U-100) 100 UN* Inject subcutaneously three t* OXYBUTYNIN CHLORIDE ER 15 MG * TAKE 1 TABLET BY MOUTH DAILY TRIAMCINOLONE ACETONIDE 0.1 %* APPLY TO AFFECTED AREA(S) ON * ASPIRIN 81 MG TABLET,DELAYED * Take 1 tablet by mouth once d* LORATADINE 10 MG TABLET Take 1 tablet by mouth once d* ALOGLIPTIN 25 MG TABLET Take 1 tablet by mouth once d* PRAMIPEXOLE 0.75 MG TABLET Take 1 tablet by mouth daily * MAGNESIUM OXIDE 400 MG (241.3* Take 1 tablet by mouth twice * PANTOPRAZOLE 40 MG TABLET,DEL* Take 1 tablet by mouth twice * SERTRALINE 50 MG TABLET Take 1/2 tab once a day orall* ENALAPRIL MALEATE 2.5 MG TABL* Take 1 tablet by mouth once d* FUROSEMIDE 40 MG TABLET TAKE 1 TABLET DAILY SPIRONOLACTONE 25 MG TABLET TAKE 1 TABLET DAILY ATORVASTATIN 10 MG TABLET TAKE 1 TABLET DAILY CARVEDILOL 25 MG TABLET TAKE 1 TABLET TWICE A DAY INSULIN GLARGINE (U-100) 100 * Inject 21 Units subcutaneousl* FLUTICASONE 50 MCG/ACTUATION * Use 2 Sprays in each nostril * daPulse ULTRA TEST STRIPS USE TO TEST BLOOD SUGAR THREE* LANCETS Test blood sugar(s) 3 times d* BLOOD-GLUCOSE METER KIT 1 Each as needed. REPAGLINIDE 2 MG TABLET Take 1-2 tablets each meal Patient taking differently: Take 1-2 tablets three times * INSULIN SYRINGE-NEEDLE U-100 * Use 1 syringe for each dose 1* PEN NEEDLE, DIABETIC 31 GAUGE* Use one needle per dose. 1 pe* Problem List As Of Date 03/04/2018 Noted Resolved Pure hypercholesterolemia [E78.00] Priority: A Diabetes mellitus (HCC) [E11.9] 08/16/2016 Priority: Moderate More... Essential hypertension, benign [I10] Priority: B Unspecified disorder of joint [719.9] 11/23/2016 More... 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 Cardiomyopathy, nonischemic [I42.8] INVALID FOR* Abnormality of gait [R26.9] INVALID FOR* DM (diabetes mellitus), type 2, uncontrolled w/*INVALID FOR*12/21/2015 Chronic nausea [R11.0] INVALID FOR*09/01/2015 Ganglion cyst of right foot [M67.471] INVALID FOR* ICD (implantable cardioverter-defibrillator) in*INVALID FOR*08/16/2016 Biventricular ICD (implantable cardioverter-def*INVALID FOR* Uncontrolled type 2 diabetes mellitus with diab*INVALID FOR* More... Neuropathy (HCC) [G62.9] INVALID FOR*08/16/2016 Restless leg syndrome [G25.81] INVALID FOR* Peroneal tendinitis [M76.70] INVALID FOR* Pain in joint, ankle and foot [M25.579] INVALID FOR* Other instructions from your clinician: 1. Get labwork. 2. Get chest xray. 3. If pain worsens or shortness of breath worsens, or other symptoms develop -- please go to ER. Medications Discontinued During This Encounter albuterol HFA (PROAIR HFA) 90 mcg/ac* 1 In* 5 06/01/2016 03/04/2018 Route: INHALATION Sig: Inhale 2 Puffs as instructed every 4 hours as needed. Disc: Course of therapy completed Encounter Status:Closed by ALTHEA MALONE CNP on 03/04/18 PROGRESS Observed: 03/04/2018 Status: COMPLETED Source: [place] 11:36 AM [facility] REPOSITORY HNO ID: [id number] Author: Althea Herrera) Faisal Service: (none) Author Type: Nurse Practitioner Type: Progress Notes Filed: 03/04/2018 12:29 PM Note Text: This is a 52 year old female who presents today with: Patient presents with: Breathing Problem: x yesterday HISTORY OF PRESENT ILLNESS: Michelle Thomas is a 52 year old female. Patient presents with: Breathing Problem: x yesterday Pt presents today with complaint of chest hurting. Refers when she goes to breath/cough, it hurts worse. Symptoms started yesterday. Wasn't doing anything when it started. Describes in the mid upper sternal area that radiates to the left shoulder. Refers + body aches as well (abd muscles hurt when she coughs). No sickness. Just hurts to breath. She thought that maybe this was allergy related initially. No ear pain. No postnasal drip. No palpitations. No dizziness. No headache. No nausea/vomiting. Refers + shortness of breath. Refers that it took her awhile to get to sleep last night. Last travel was two months ago. No leg pain, redness, swelling. Refers if she has to sneeze or cough, the pain is worse. Nothing makes the pain feel better. Took one dose of tylenol last night. Refers that she is unable to take nsaids d/t cardiac status. Going next week to have the pacemaker changed d/t battery depletion. PAST MEDICAL HISTORY: PAST MEDICAL HISTORY Diagnosis Date - Anxiety disorder in conditions classified elsewhere - Arthritis left knee with spur - Cardiomyopathy, nonischemic (HCC) 04/2013 - Degenerative joint disease involving multiple joints shoulders, right knee - Essential hypertension, benign - Family history of colon cancer 5y screening cycle - GERD (gastroesophageal reflux disease) - History of placement of internal cardiac defibrillator 09/03/2013 - Neuropathy (HCC) 02/09/2016 - Obesity, unspecified - Pure hypercholesterolemia - Restless leg syndrome 02/09/2016 - Snoring - Type II or unspecified type diabetes mellitus without mention of complication, not stated as uncontrolled - Vitamin D deficiency PAST SURGICAL HISTORY Procedure Laterality Date - APPENDECTOMY 2006 - COLONOSCOP W/ OR W/O [facility] SPEC 10/08/06 - COLONOSCOP W/ OR W/O [facility] SPEC 09/18/2011 Colonoscopy - COLONOSCOP W/ OR W/O [facility] SPEC 09/27/2016 Colonoscopy - DESTR LES BENIGN/ PREMAL 02/06/12 Ablation anal condyomata - EGD 09-01-15 - INSERT DUAL CHAMBER ICD 09/03/13 pacemaker/defibulator - KNEE SCOPE,DIAGNOSTIC right - LAPAROSCOPY, SURGICAL, APPENDECTOMY 10/22/06 - PAST SURGICAL HISTORY OF Right -14 ganglion cyst - PAST SURGICAL HISTORY OF Left 2016 cyst removed from left foot - TONSILLECTOMY AND ADENOIDECTOMY HX age 6 - TOTAL ABDOM HYSTERECTOMY 2005 menorrhagia/dysmenorrhea (negative for cancer) -- Normangee ALLERGIES Adhesive Tape (Rosins); Latex; Simvastatin MEDICATIONS Current Outpatient Prescriptions: Blood-Glucose Meter (ONETOUCH ULTRA2) monitoring kit 1 Each as needed. clindamycin (CLEOCIN) 300 mg capsule Take 1 capsule by mouth three times daily. insulin lispro (ADMELOG SOLOSTAR U-100 INSULIN) 100 unit/mL inpn Inject subcutaneously three times daily before meals. Take 1 unit when blood sugar is above 200 or higher. DANITZA PAYNE oxybutynin ER (DITROPAN XL) 15 mg 24 hr Extended Rel Tab TAKE 1 TABLET BY MOUTH DAILY triamcinolone acetonide (KENALOG) 0.1 % ointment APPLY TO AFFECTED AREA(S) ON LEGS TWICE A DAY NEEDED *USE 2 WEEKS ON, 1 WEEK OFF *NOT FOR FACE, ARMPITS aspirin, enteric coated (ECOTRIN LOW STRENGTH) 81 mg EC tablet Take 1 tablet by mouth once daily. loratadine (CLARITIN) 10 mg tablet Take 1 tablet by mouth once daily. alogliptin 25 mg tab Take 1 tablet by mouth once daily. Pramipexole 0.75 mg tablet Take 1 tablet by mouth daily at bedtime. magnesium oxide (MAG-OX) 400 mg tablet Take 1 tablet by mouth twice daily. pantoprazole DR (PROTONIX) 40 mg tablet Take 1 tablet by mouth twice daily. sertraline (ZOLOFT) 50 mg tablet Take 1/2 tab once a day orally for one week then 1 tab once a day enalapril (VASOTEC) 2.5 mg tablet Take 1 tablet by mouth once daily. furosemide (LASIX) 40 mg tablet TAKE 1 TABLET DAILY spironolactone (ALDACTONE) 25 mg tablet TAKE 1 TABLET DAILY atorvastatin (LIPITOR) 10 mg tablet TAKE 1 TABLET DAILY carvedilol (COREG) 25 mg tablet TAKE 1 TABLET TWICE A DAY insulin glargine (BASAGLAR KWIKPEN) 100 unit/mL (3 mL) inpn Inject 21 Units subcutaneously every evening. fluticasone (FLONASE) 50 mcg/actuation nasal spray Use 2 Sprays in each nostril once daily. [employer] Technology[employer]CH ULTRA TEST test strip USE TO TEST BLOOD SUGAR THREE TIMES A DAY Lancets lancets Test blood sugar(s) 3 times daily. Blood-Glucose Meter (FREESTYLE SYSTEM KIT) monitoring kit 1 Each as needed. albuterol HFA (PROAIR HFA) 90 mcg/actuation inhaler Inhale 2 Puffs as instructed every 4 hours as needed. repaglinide (PRANDIN) 2 mg tablet Take 1-2 tablets each meal (Patient taking differently: Take 1-2 tablets three times daily before meal) Insulin Syringe-Needle U-100 (INSULIN SYRINGE) 1/2 mL 30 x 5/16 syrg Use 1 syringe for each dose 1/day insulin needles, DISPOSABLE, (PEN NEEDLE) 31 gauge x 5/16 ndle Use one needle per dose. 1 per day. No current facility-administered medications for this visit. FAMILY HISTORY Problem Relation Age of Onset - Colon Cancer Father in early 50s - Heart Father 55 [place] - Breast Cancer Mother in 50s - Diabetes Mother - Coronary Artery Disease Mother age early-mid 60's - Colon Cancer Paternal Grandmother - other (epilepsy) Son - Breast Cancer Daughter - other (heart murmur) Daughter Social History Marital status: Spouse name: Years of education: Number of children: 2 Occupational History Occupation Employer Comment [employer] ([employer]) [employer]* Social History Main Topics Smoking status: Never Smoker Smokeless tobacco: Never Used Alcohol use: No Comment: seldom Drug use: No Sexual activity: Not Currently Partners with: Male Other Topics Concern Caffeine Concern Yes Comment:pop, tea Special Diet No Comment:average Exercise No Comment:sedentary EXAM: BP 116/66 (BP Site: Left Arm, BP Position: Sitting, BP Cuff Size: Large Adult) Pulse 62 Temp 36.6 ?C (97.9 ?F) (Tympanic) Resp 16 Wt 98.9 kg (218 lb) SpO2 95% BMI 32.19 kg/m? PHYSICAL EXAM: General Appearance: Well appearing, alert, in no acute distress, well-hydrated, well nourished.. Skin: Skin color, texture, turgor normal, no suspicious rashes or lesions. Head: Normocephalic, no masses, lesions, tenderness or abnormalities. Eyes: Anicteric sclera. Pupils are equally round and reactive to light. Extraocular movements are intact. . Ears: External ears normal, canals clear, Normal TMs bilaterally. Nose/Sinuses: Nares normal, septum midline, mucosa normal, no drainage or sinus tenderness. Oropharynx: Lips, mucosa, and tongue normal, teeth and gums normal, oropharynx normal. Neck: Supple, no adenopathy Lungs: Lungs clear to auscultation. No wheezing, rhonchi, rales. Heart: RRR without murmur, gallop, or rubs. No ectopy. Abdomen: Normal abdominal exam, Abdomen soft, non-tender. Bowel sounds normal. No masses, organomegaly. Musculoskeletal: No joint swelling, deformity, or tenderness. Peripheral Pulses: Normal. Neurologic: Gait normal. ASSESSMENT/PLAN: 1. Pleurodynia - ICD9: 786.52, ICD10: R07.81 (primary diagnosis) Atypical chest pain, symptoms are not consistent with cardiac ischemia due to nonexertional nature of symptom and pleuritic nature of pain possible etiology include Costochondritis/chest wall pain - Electrocardiogram: V paced - 100%. - Chest X-ray today. - ECG COMPLETE W INTERPRETATION - D-DIMER - XR CHEST 2V FRONTAL/LAT Discussed using tylenol, moist heat/ice for pain. She can also use plain robitussin if needed for cough. 2. Chest pain on breathing - ICD9: 786.52, ICD10: R07.1 - D-DIMER - XR CHEST 2V FRONTAL/LAT - COMPLETE ECG 3. SOB (shortness of breath) - ICD9: 786.05, ICD10: R06.02 - XR CHEST 2V FRONTAL/LAT Discussed with patient that if she has any worsening of symptoms or new symptoms, she should proceed to ER. Discussed treatment plan and patient voices understanding. Patient's questions answered appropriately. Medications and potential side effects were discussed and patient voices understanding. Return to the office as scheduled or as needed for worsening/no improvement. Althea Malone APRN.CAROL MEDINAN Observed: 03/04/2018 Status: COMPLETED Source: [place] 12:00 AM [facility] REPOSITORY [facility] MICHELLE THOMAS ([id number]) 1965 F Date Time Provider Department 03/04/18 MELLO DING [facility] During your visit today, we recorded the following information about you: Shanell Mcmahon RN 03/04/2018 2:08 PM Signed Kathi- [facility] lab- reporting today's D-dimer result is 0.65. Please advise patient. Althea Malone APRN.CNP 03/04/2018 2:38 PM Signed Can please let patient know that I received her results. Her chest xray is normal. However, the D. Dimer blood test was elevated. So, she does need to go to the ER for further evaluation of the discomfort/SOB that she is heaving. Mari Pacheco Cma 03/04/2018 2:55 PM Signed TC to patient. Advised patient of below results and to go to the ER for further evaluation. Patient states she will be going to [facility] ER within the next hour. Patient states she will keep us updated. Patient verbalized all understanding. Mari Malone APRN.CNP 03/04/2018 3:30 PM Signed Report to ER. Can we please fax the notes, chest xray, and EKG to [place] [facility]. Althea Malone APRN.CAROL Pacheco Cma 03/04/2018 3:41 PM Signed All documents that were printed were faxed to [facility] ER. Mari Pacheco Cma Allergies As of Date: 03/04/2018 Noted Allergy Reaction ADHESIVE TAPE (ROSINS) 03/27/2006 9 - Itching LATEX 01/10/2011 2 - Rash SIMVASTATIN 11/04/2012 14 - Other: See Comments Comments: myalgia Date Reviewed: 03/04/2018 Reviewed by: Mari Pacheco Cma - Fully Assessed Reason for Visit: D- dimer result [Other] Prescriptions as of 03/04/2018 Sig: BLOOD-GLUCOSE METER KIT 1 Each as needed. CLINDAMYCIN HCL 300 MG CAPSULE Take 1 capsule by mouth three* INSULIN LISPRO (U-100) 100 UN* Inject subcutaneously three t* OXYBUTYNIN CHLORIDE ER 15 MG * TAKE 1 TABLET BY MOUTH DAILY TRIAMCINOLONE ACETONIDE 0.1 %* APPLY TO AFFECTED AREA(S) ON * ASPIRIN 81 MG TABLET,DELAYED * Take 1 tablet by mouth once d* LORATADINE 10 MG TABLET Take 1 tablet by mouth once d* ALOGLIPTIN 25 MG TABLET Take 1 tablet by mouth once d* PRAMIPEXOLE 0.75 MG TABLET Take 1 tablet by mouth daily * MAGNESIUM OXIDE 400 MG (241.3* Take 1 tablet by mouth twice * PANTOPRAZOLE 40 MG TABLET,DEL* Take 1 tablet by mouth twice * SERTRALINE 50 MG TABLET Take 1/2 tab once a day orall* ENALAPRIL MALEATE 2.5 MG TABL* Take 1 tablet by mouth once d* FUROSEMIDE 40 MG TABLET TAKE 1 TABLET DAILY SPIRONOLACTONE 25 MG TABLET TAKE 1 TABLET DAILY ATORVASTATIN 10 MG TABLET TAKE 1 TABLET DAILY CARVEDILOL 25 MG TABLET TAKE 1 TABLET TWICE A DAY INSULIN GLARGINE (U-100) 100 * Inject 21 Units subcutaneousl* FLUTICASONE 50 MCG/ACTUATION * Use 2 Sprays in each nostril * ONETOUCH ULTRA TEST STRIPS USE TO TEST BLOOD SUGAR THREE* LANCETS Test blood sugar(s) 3 times d* BLOOD-GLUCOSE METER KIT 1 Each as needed. REPAGLINIDE 2 MG TABLET Take 1-2 tablets each meal Patient taking differently: Take 1-2 tablets three times * INSULIN SYRINGE-NEEDLE U-100 * Use 1 syringe for each dose 1* PEN NEEDLE, DIABETIC 31 GAUGE* Use one needle per dose. 1 pe* Problem List As Of Date 03/04/2018 Noted Resolved Pure hypercholesterolemia [E78.00] Priority: A Diabetes mellitus (HCC) [E11.9] 08/16/2016 Priority: Moderate More... Essential hypertension, benign [I10] Priority: B Unspecified disorder of joint [719.9] 11/23/2016 More... 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 Cardiomyopathy, nonischemic [I42.8] INVALID FOR* Abnormality of gait [R26.9] INVALID FOR* DM (diabetes mellitus), type 2, uncontrolled w/*INVALID FOR*12/21/2015 Chronic nausea [R11.0] INVALID FOR*09/01/2015 Ganglion cyst of right foot [M67.471] INVALID FOR* ICD (implantable cardioverter-defibrillator) in*INVALID FOR*08/16/2016 Biventricular ICD (implantable cardioverter-def*INVALID FOR* Uncontrolled type 2 diabetes mellitus with diab*INVALID FOR* More... Neuropathy (HCC) [G62.9] INVALID FOR*08/16/2016 Restless leg syndrome [G25.81] INVALID FOR* Peroneal tendinitis [M76.70] INVALID FOR* Pain in joint, ankle and foot [M25.579] INVALID FOR* Encounter Status:Closed by ELIZABETH HEDRICK LPN on 03/04/18 HOSP Observed: 03/03/2018 Status: COMPLETED Source: [place] 12:00 AM [facility] OTHER CAMPUS REPOSITORY Patient:Michelle Thomas MRN: <[id number]> Height:5' 9(1.753 m) Weight:218 lb (98.884 kg) Outpatient Medications as of 03/12/18: Blood-Glucose Meter (ONETOUCH ULTRA2) monitoring kit clindamycin (CLEOCIN) 300 mg capsule insulin lispro (ADMELOG SOLOSTAR U-100 INSULIN) 100 unit/mL inpn oxybutynin ER (DITROPAN XL) 15 mg 24 hr Extended Rel Tab triamcinolone acetonide (KENALOG) 0.1 % ointment aspirin, enteric coated (ECOTRIN LOW STRENGTH) 81 mg EC tablet loratadine (CLARITIN) 10 mg tablet alogliptin 25 mg tab Pramipexole 0.75 mg tablet magnesium oxide (MAG-OX) [address] (PROTONIX) 40 mg tablet sertraline (ZOLOFT) 50 mg tablet enalapril (VASOTEC) 2.5 mg tablet furosemide (LASIX) 40 mg tablet spironolactone (ALDACTONE) 25 mg tablet atorvastatin (LIPITOR) 10 mg tablet carvedilol (COREG) 25 mg tablet insulin glargine (BASAGLAR KWIKPEN) 100 unit/mL (3 mL) inpn fluticasone (FLONASE) 50 mcg/actuation nasal spray ONETOUCH ULTRA TEST test strip Lancets lancets Blood-Glucose Meter (FREESTYLE SYSTEM KIT) monitoring kit repaglinide (PRANDIN) 2 mg tablet Insulin Syringe-Needle U-100 (INSULIN SYRINGE) 1/2 mL 30 x 11/27 syrg insulin needles, DISPOSABLE, (PEN NEEDLE) 31 gauge x 11/27 ndle Admission/Clinic Administered Medications as of 03/12/18: 0.9% NaCl 2-10 mL bacitracin 50,000 Units in sodium chloride 0.9 % 250 mL for irrigation bacitracin 50,000 Units in sodium chloride 0.9 % 250 mL for irrigation ceFAZolin iv piggyback 2 g in D5W (iso-osmotic) 100 mL (ANCEF) Problem List: Pure hypercholesterolemia [E78.00] Essential hypertension, benign [I10] 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] Anxiety disorder in conditions classified elsewhere [F06.4] Vitamin D deficiency [E55.9] Family history of colon cancer [Z80.0] Cardiomyopathy, nonischemic (HCC) [I42.8] Abnormality of gait [R26.9] Ganglion cyst of right foot [M67.471] Biventricular ICD (implantable cardioverter-defibrillator) in place [Z95.810] Uncontrolled type 2 diabetes mellitus with diabetic neuropathy, without long-term current use of insulin (HCC) [E11.40, E11.65] Restless leg syndrome [G25.81] Peroneal tendinitis [M76.70] Pain in joint, ankle and foot [M25.579] Allergies: Adhesive Tape (Rosins) Latex Simvastatin Date Verified: 03/12/18 Lab Values No results within the last 30 days for the following basenames: K,HCT Progress Notes ([facility]): Jaqueline Nassar RN 03/07/2018 2:03 PM Signed Report from Dr. Trujillo placed in box to review Jaqueline Martinez MD 03/07/2018 2:38 PM Signed I have no idea why we got this. It was apparently done in the emergency room. Please get emergency room records. MD Jaqueline Peacock RN 03/07/2018 2:54 PM Signed Emergency dept records placed in box to review Jaqueline Martinez MD 03/07/2018 4:48 PM Signed Reviewed and sent for scanning. Tobias Martinez MD Progress Notes ([facility]): Shanell Mcmahon RN 03/04/2018 2:08 PM Signed [facility] lab- reporting today's D-dimer result is 0.65. Please advise patient. Althea Malone APRN.CASHIER CHECKER 03/04/2018 2:38 PM Signed Can please let patient know that I received her results. Her chest xray is normal. However, the D. Dimer blood test was elevated. So, she does need to go to the ER for further evaluation of the discomfort/SOB that she is heaving. Mari Pacheco Cma 03/04/2018 2:55 PM Signed TC to patient. Advised patient of below results and to go to the ER for further evaluation. Patient states she will be going to [facility] ER within the next hour. Patient states she will keep us updated. Patient verbalized all understanding. Mari Malone APRN.CNP 03/04/2018 3:30 PM Signed Report to ER. Can we please fax the notes, chest xray, and EKG to [place] [facility]. Althea Malone APRN.CNP Mari Donmarcia Loera 03/04/2018 3:41 PM Signed All documents that were printed were faxed to [facility] ER. Mari Donmarcia Loera PROGRESS Observed: 02/28/2018 Status: COMPLETED Source: [place] 2:51 PM CLINIC OTHER CAMPUS REPOSITORY O ID: [id number] Author: Lilo Wheeler Service: (none) Author Type: Physician Type: Progress Notes Filed: 02/28/2018 2:55 PM Note Text: Subjective HPI Prior history: 52-year-old female with history of essential hypertension, diabetes, nonischemic cardiomyopathy, status post GUN EXAMINER-D system implantation at [facility] in 2013, apparently for primary sudden cardiac prevention, referred by Dr. Tobias Martinez to establish device follow-up. Michelle reports feeling reasonably well, denies chest pain, dizziness, syncope or device shocks. She does experience exertional dyspnea after walking up 2 flights of stairs. In addition approximately a month ago she was having episodes of palpitation that she associated with stress. She had an external monitor that demonstrated sinus rhythm with no sustained arrhythmia. Her initial interrogation at [facility]. device clinic today demonstrated presence of [employer] GUN EXAMINER-D system. Full report is not available at the time of this dictation, however verbal report indicated that LV lead threshold was approximately 1.7 V at 1 ms pulse width. Right atrial and right ventricular lead function was normal. There was no mode switch episodes, no ventricular arrhythmia. She did have several episodes of PMT. Battery longevity of approximately 5 more years, normal function overall. Interval history: Mrs. Thomas recent device interrogation demonstrated evidence of premature battery depletion. Battery longevity was estimated at 28 days, and prompt PPG replacement was recommended by [employer] technical support team. Michelle presents to discuss the procedure. She continues feeling reasonably well, has baseline exertional dyspnea, but no chest pain, palpitation or syncope. No discomfort in the device site. Her diabetes control has been suboptimal and is work in progress. We reviewed the risks and benefits, as well as the technical aspects of the procedure which is expected to be performed under conscious sedation. The patient will likely be discharged on the same day. Michelle expressed understanding and willingness to proceed. We'll contact her shortly for scheduling. Review of Systems Respiratory: Positive for shortness of breath. Negative for hemoptysis. Cardiovascular: Negative for chest pain and palpitations. Gastrointestinal: Negative for blood in stool and melena. Genitourinary: Negative for hematuria. Neurological: Negative for loss of consciousness. Psychiatric/Behavioral: The patient is not nervous/anxious. Objective Physical Exam Constitutional: She is oriented to person, place, and time and well-developed, well-nourished, and in no distress. HENT: Head: Normocephalic and atraumatic. Eyes: Conjunctivae are normal. Cardiovascular: Normal rate and regular rhythm. Well-healed device pocket scar, no erythema or tenderness. Pulmonary/Chest: Effort normal. No stridor. No respiratory distress. Neurological: She is alert and oriented to person, place, and time. Skin: No pallor. Psychiatric: Affect and judgment normal. CNOV Observed: 02/28/2018 Status: COMPLETED Source: [place] 2:30 PM CLIN[facility] OTHER CAMPUS REPOSITORY Office Visit ([facility]) MICHELLE THOMAS Shayla ([id number]) 1965 F Date Time Provider Department 02/28/18 2:30 PM [facility] During your visit today, we recorded the following information about you: Pulse Blood pressure Weight Height 67/minute 120/74 99.2 kg 1.753 m Christine Park CMA 02/28/2018 2:21 PM Signed Mrs. Thomas is here to discuss premature battery on her device. No cardiac complaints today. JUNIOR Aevndano MD 02/28/2018 2:55 PM Signed Subjective HPI Prior history: 52-year-old female with history of essential hypertension, diabetes, nonischemic cardiomyopathy, status post GUN EXAMINER-D system implantation at [facility] in 2013, apparently for primary sudden cardiac prevention, referred by Dr. Tobias Martinez to establish device follow- up. Michelle reports feeling reasonably well, denies chest pain, dizziness, syncope or device shocks. She does experience exertional dyspnea after walking up 2 flights of stairs. In addition approximately a month ago she was having episodes of palpitation that she associated with stress. She had an external monitor that demonstrated sinus rhythm with no sustained arrhythmia. Her initial interrogation at [facility]. device clinic today demonstrated presence of [employer] GUN EXAMINER-D system. Full report is not available at the time of this dictation, however verbal report indicated that LV lead threshold was approximately 1.7 V at 1 ms pulse width. Right atrial and right ventricular lead function was normal. There was no mode switch episodes, no ventricular arrhythmia. She did have several episodes of PMT. Battery longevity of approximately 5 more years, normal function overall. Interval history: Mrs. Thomas recent device interrogation demonstrated evidence of premature battery depletion. Battery longevity was estimated at 28 days, and prompt PPG replacement was recommended by [employer] technical support team. Michelle presents to discuss the procedure. She continues feeling reasonably well, has baseline exertional dyspnea, but no chest pain, palpitation or syncope. No discomfort in the device site. Her diabetes control has been suboptimal and is work in progress. We reviewed the risks and benefits, as well as the technical aspects of the procedure which is expected to be performed under conscious sedation. The patient will likely be discharged on the same day. Michelle expressed understanding and willingness to proceed. We'll contact her shortly for scheduling. Review of Systems Respiratory: Positive for shortness of breath. Negative for hemoptysis. Cardiovascular: Negative for chest pain and palpitations. Gastrointestinal: Negative for blood in stool and melena. Genitourinary: Negative for hematuria. Neurological: Negative for loss of consciousness. Psychiatric/Behavioral: The patient is not nervous/anxious. Objective Physical Exam Constitutional: She is oriented to person, place, and time and well-developed, well-nourished, and in no distress. HENT: Head: Normocephalic and atraumatic. Eyes: Conjunctivae are normal. Cardiovascular: Normal rate and regular rhythm. Well-healed device pocket scar, no erythema or tenderness. Pulmonary/Chest: Effort normal. No stridor. No respiratory distress. Neurological: She is alert and oriented to person, place, and time. Skin: No pallor. Psychiatric: Affect and judgment normal. Referring Provider: LILO WHEELER [[id number]] Allergies As of Date: 02/28/2018 Noted Allergy Reaction ADHESIVE TAPE (ROSINS) 03/27/2006 9 - Itching LATEX 01/10/2011 2 - Rash SIMVASTATIN 11/04/2012 14 - Other: See Comments Comments: myalgia Date Reviewed: 02/28/2018 Reviewed by: Lilo Wheeler - Fully Assessed Reason for Visit: Cardiology Follow Up [1732] Primary Visit Diagnosis:Cardiomyopathy, nonischemic (HCC) [I42.8] Other Visit Diagnoses:Biventricular ICD (implantable cardioverter-defibrillator) in place [Z95.810] Essential hypertension, benign [I10] Uncontrolled type 2 diabetes mellitus with diabetic neuropathy, without long-term current use of insulin (HCC) [E11.40, E11.65] Prescriptions as of 02/28/2018 Sig: BLOOD-GLUCOSE METER KIT 1 Each as needed. CLINDAMYCIN HCL 300 MG CAPSULE Take 1 capsule by mouth three* INSULIN LISPRO (U-100) 100 UN* Inject subcutaneously three t* OXYBUTYNIN CHLORIDE ER 15 MG * TAKE 1 TABLET BY MOUTH DAILY TRIAMCINOLONE ACETONIDE 0.1 %* APPLY TO AFFECTED AREA(S) ON * ASPIRIN 81 MG TABLET,DELAYED * Take 1 tablet by mouth once d* LORATADINE 10 MG TABLET Take 1 tablet by mouth once d* ALOGLIPTIN 25 MG TABLET Take 1 tablet by mouth once d* PRAMIPEXOLE 0.75 MG TABLET Take 1 tablet by mouth daily * MAGNESIUM OXIDE 400 MG TABLET Take 1 tablet by mouth twice * PANTOPRAZOLE 40 MG TABLET,DEL* Take 1 tablet by mouth twice * SERTRALINE 50 MG TABLET Take 1/2 tab once a day orall* ENALAPRIL MALEATE 2.5 MG TABL* Take 1 tablet by mouth once d* FUROSEMIDE 40 MG TABLET TAKE 1 TABLET DAILY SPIRONOLACTONE 25 MG TABLET TAKE 1 TABLET DAILY ATORVASTATIN 10 MG TABLET TAKE 1 TABLET DAILY CARVEDILOL 25 MG TABLET TAKE 1 TABLET TWICE A DAY INSULIN GLARGINE (U-100) 100 * Inject 21 Units subcutaneousl* FLUTICASONE 50 MCG/ACTUATION * Use 2 Sprays in each nostril * ONETOUCH ULTRA TEST STRIPS USE TO TEST BLOOD SUGAR THREE* LANCETS Test blood sugar(s) 3 times d* BLOOD-GLUCOSE METER KIT 1 Each as needed. REPAGLINIDE 2 MG TABLET Take 1-2 tablets each meal Patient taking differently: Take 1-2 tablets three times * INSULIN SYRINGE-NEEDLE U-100 * Use 1 syringe for each dose 1* PEN NEEDLE, DIABETIC 31 GAUGE* Use one needle per dose. 1 pe* ALBUTEROL SULFATE HFA 90 MCG/* Inhale 2 Puffs as instructed * Patient not taking: Reported on 02/19/2018 Problem List As Of Date 02/28/2018 Noted Resolved Pure hypercholesterolemia [E78.00] Priority: A Diabetes mellitus (HCC) [E11.9] 08/16/2016 Priority: Moderate More... Essential hypertension, benign [I10] Priority: B Unspecified disorder of joint [719.9] 11/23/2016 More... 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 Cardiomyopathy, nonischemic [I42.8] INVALID FOR* Abnormality of gait [R26.9] INVALID FOR* DM (diabetes mellitus), type 2, uncontrolled w/*INVALID FOR*12/21/2015 Chronic nausea [R11.0] INVALID FOR*09/01/2015 Ganglion cyst of right foot [M67.471] INVALID FOR* ICD (implantable cardioverter-defibrillator) in*INVALID FOR*08/16/2016 Biventricular ICD (implantable cardioverter-def*INVALID FOR* Uncontrolled type 2 diabetes mellitus with diab*INVALID FOR* More... Neuropathy (HCC) [G62.9] INVALID FOR*08/16/2016 Restless leg syndrome [G25.81] INVALID FOR* Peroneal tendinitis [M76.70] INVALID FOR* Pain in joint, ankle and foot [M25.579] INVALID FOR* Visit Notes: >> Christine Park SatFeb 28, 2018 2:19 PM Status: Signed Mrs. Thomas is here to discuss premature battery on her device. No cardiac complaints today. Christine Park CMA Disposition: Return Will call to set up battery replacement. Follow-up and Disposition History Recorded Encounter Status:Closed by LILO WHEELER MD on 02/28/18 PROGRESS Observed: 02/19/2018 Status: COMPLETED Source: [place] 2:24 PM [facility] [place] REPOSITORY HNO ID: [id number] Author: Yesenia Lowe Service: (none) Author Type: Physician Type: Progress Notes Filed: 02/20/2018 6:30 AM Note Text: Follow up podiatric office visit: This 52 year old diabetic presents for follow up of b/l foot bursitis. 01/21 pain. L side continues to be uncomfortable despite wearing diabetic shoes and offloading insoles. These lesions continue to come back despite surgical excision. + diabetes. +hx of infections and slow healng wounds. Sugar 172 mg/dL this am. PAIN EVALUATION 02/19/2018 Pain Score: 7 Pain Location: Foot-Left Description: Aching;Sore Duration Amount of Time: - Ongoing Frequency: Continuous Intervention: Reposition;Medication;Modify dressing application;Modify dressing type Hemoglobin A1C (%) Date Value 01/14/2018 8.0 09/23/2017 7.2 ) PAST MEDICAL HISTORY Diagnosis Date - Anxiety disorder in conditions classified elsewhere - Arthritis left knee with spur - Cardiomyopathy, nonischemic (HCC) 04/2013 - Degenerative joint disease involving multiple joints shoulders, right knee - Essential hypertension, benign - Family history of colon cancer 5y screening cycle - GERD (gastroesophageal reflux disease) - History of placement of internal cardiac defibrillator 09/03/2013 - Neuropathy (HCC) 02/09/2016 - Obesity, unspecified - Pure hypercholesterolemia - Restless leg syndrome 02/09/2016 - Snoring - Type II or unspecified type diabetes mellitus without mention of complication, not stated as uncontrolled - Vitamin D deficiency Current Outpatient Prescriptions: insulin lispro (ADMELOG SOLOSTAR U-100 INSULIN) 100 unit/mL inpn Inject subcutaneously three times daily before meals. Take 1 unit when blood sugar is above 200 or higher. DANITZA CHRISS oxybutynin ER (DITROPAN XL) 15 mg 24 hr Extended Rel Tab TAKE 1 TABLET BY MOUTH DAILY triamcinolone acetonide (KENALOG) 0.1 % ointment APPLY TO AFFECTED AREA(S) ON LEGS TWICE A DAY NEEDED *USE 2 WEEKS ON, 1 WEEK OFF *NOT FOR FACE, ARMPITS aspirin, enteric coated (ECOTRIN LOW STRENGTH) 81 mg EC tablet Take 1 tablet by mouth once daily. loratadine (CLARITIN) 10 mg tablet Take 1 tablet by mouth once daily. alogliptin 25 mg tab Take 1 tablet by mouth once daily. Pramipexole 0.75 mg tablet Take 1 tablet by mouth daily at bedtime. magnesium oxide (MAG-OX) 400 mg tablet Take 1 tablet by mouth twice daily. pantoprazole DR (PROTONIX) 40 mg tablet Take 1 tablet by mouth twice daily. sertraline (ZOLOFT) 50 mg tablet Take 1/2 tab once a day orally for one week then 1 tab once a day enalapril (VASOTEC) 2.5 mg tablet Take 1 tablet by mouth once daily. furosemide (LASIX) 40 mg tablet TAKE 1 TABLET DAILY spironolactone (ALDACTONE) 25 mg tablet TAKE 1 TABLET DAILY atorvastatin (LIPITOR) 10 mg tablet TAKE 1 TABLET DAILY carvedilol (COREG) 25 mg tablet TAKE 1 TABLET TWICE A DAY insulin glargine (BASAGLAR KWIKPEN) 100 unit/mL (3 mL) inpn Inject 21 Units subcutaneously every evening. fluticasone (FLONASE) 50 mcg/actuation nasal spray Use 2 Sprays in each nostril once daily. repaglinide (PRANDIN) 2 mg tablet Take 1-2 tablets each meal (Patient taking differently: Take 1-2 tablets three times daily before meal) ONETOUCH ULTRA TEST test strip USE TO TEST BLOOD SUGAR THREE TIMES A DAY Lancets lancets Test blood sugar(s) 3 times daily. Blood-Glucose Meter (TSSI SystemsSTYLE SYSTEM KIT) monitoring kit 1 Each as needed. (Patient not taking: Reported on 02/19/2018 ) albuterol HFA (PROAIR HFA) 90 mcg/actuation inhaler Inhale 2 Puffs as instructed every 4 hours as needed. (Patient not taking: Reported on 02/19/2018 ) Insulin Syringe-Needle U-100 (INSULIN SYRINGE) 1/2 mL 30 x 5/16 syrg Use 1 syringe for each dose 1/day insulin needles, DISPOSABLE, (PEN NEEDLE) 31 gauge x 5/16 ndle Use one needle per dose. 1 per day. No current facility-administered medications for this visit. ALLERGIES Allergen Reactions - Adhesive Tape (Natty* Itching - Latex Rash - Simvastatin Other: See Comments myalgia Objective: Constitutional: Pt is a well developed 52 year old female who is alert, oriented, cooperative and in no apparent distress. Eyes: Following during examination. No redness or drainage. Respiratory: RR normal and nonlabored. Even breathing. No evidence of distress. Psychology: Patient is engaged during conversation. Normal affect and mood. Does not appear depressed or anxious. Palpable DP and PT pulses. Protective and vibratory sensation intact. Nails 1-5 b/l are within normal limits. Negative maceration to webspaces with negative openings in skin noted b/l. No ulcerations, lesions or rashes noted. Hyperkeratosis not seen. Prominent, tender 5th met base b/l with swelling and tenderness plantar foot. Thick callus also noted plantarly. Dorsal L foot mass appears to have resolved. No redness or warmth. No drainage. No lymphadenopathy. No lymphangitis. Patient has no pain to palpation of L calf. Negative Campos's test. Assessment: Bursitis b/l 5th metatarsal base. Controlled DM II Cardiomyopathy Can't take NSAID Plan: History and physical examination done today. Discussed options with patient today. Risks, benefits, alternatives and personnel discussed with patient who consents to proceed with injection today. 1.0 cc 2% lidocaine plain, 1.0 cc 0.5% marcaine plain and 0.25 cc kenalog 40 injected to plantar mass L foot. Instruction regarding possible steroid flare given to patient. RTC 8 weeks if not improving. unable to get MRI. JACEY Abdul Observed: 02/19/2018 Status: COMPLETED Source: [place] 1:45 PM [facility] RE[facility] Office Visit (PODIMM) WILLIAMMICHELLE ([id number]) 1965 F Date Time Provider Department 02/19/18 1:45 PM YESENIA LOWE PODIMM During your visit today, we recorded the following information about you: Georgette Shaw Walden 02/19/2018 2:15 PM Signed Patient presents with: Follow Up: Left foot pain Yesenia Lowe DPM 02/20/2018 6:30 AM Signed Follow up podiatric office visit: This 52 year old diabetic presents for follow up of b/l foot bursitis. 01/21 pain. L side continues to be uncomfortable despite wearing diabetic shoes and offloading insoles. These lesions continue to come back despite surgical excision. + diabetes. +hx of infections and slow healng wounds. Sugar 172 mg/dL this am. PAIN EVALUATION 02/19/2018 Pain Score: 7 Pain Location: Foot-Left Description: Aching;Sore Duration Amount of Time: - Ongoing Frequency: Continuous Intervention: Reposition;Medication;Modify dressing application;Modify dressing type Hemoglobin A1C (%) Date Value 01/14/2018 8.0 09/23/2017 7.2 ) PAST MEDICAL HISTORY Diagnosis Date - Anxiety disorder in conditions classified elsewhere - Arthritis left knee with spur - Cardiomyopathy, nonischemic (HCC) 04/2013 - Degenerative joint disease involving multiple joints shoulders, right knee - Essential hypertension, benign - Family history of colon cancer 5y screening cycle - GERD (gastroesophageal reflux disease) - History of placement of internal cardiac defibrillator 09/03/2013 - Neuropathy ([facility]) 02/09/2016 - Obesity, unspecified - Pure hypercholesterolemia - Restless leg syndrome 02/09/2016 - Snoring - Type II or unspecified type diabetes mellitus without mention of complication, not stated as uncontrolled - Vitamin D deficiency Current Outpatient Prescriptions: insulin lispro (ADMELOG SOLOSTAR U-100 INSULIN) 100 unit/mL inpn Inject subcutaneously three times daily before meals. Take 1 unit when blood sugar is above 200 or higher. DANITZA PAYNE oxybutynin ER (DITROPAN XL) 15 mg 24 hr Extended Rel Tab TAKE 1 TABLET BY MOUTH DAILY triamcinolone acetonide (KENALOG) 0.1 % ointment APPLY TO AFFECTED AREA(S) ON LEGS TWICE A DAY NEEDED *USE 2 WEEKS ON, 1 WEEK OFF *NOT FOR FACE, ARMPITS aspirin, enteric coated (ECOTRIN LOW STRENGTH) 81 mg EC tablet Take 1 tablet by mouth once daily. loratadine (CLARITIN) 10 mg tablet Take 1 tablet by mouth once daily. alogliptin 25 mg tab Take 1 tablet by mouth once daily. Pramipexole 0.75 mg tablet Take 1 tablet by mouth daily at bedtime. magnesium oxide (MAG-OX) 400 mg tablet Take 1 tablet by mouth twice daily. pantoprazole DR (PROTONIX) 40 mg tablet Take 1 tablet by mouth twice daily. sertraline (ZOLOFT) 50 mg tablet Take 1/2 tab once a day orally for one week then 1 tab once a day enalapril (VASOTEC) 2.5 mg tablet Take 1 tablet by mouth once daily. furosemide (LASIX) 40 mg tablet TAKE 1 TABLET DAILY spironolactone (ALDACTONE) 25 mg tablet TAKE 1 TABLET DAILY atorvastatin (LIPITOR) 10 mg tablet TAKE 1 TABLET DAILY carvedilol (COREG) 25 mg tablet TAKE 1 TABLET TWICE A DAY insulin glargine (BASAGLAR KWIKPEN) 100 unit/mL (3 mL) inpn Inject 21 Units subcutaneously every evening. fluticasone (FLONASE) 50 mcg/actuation nasal spray Use 2 Sprays in each nostril once daily. repaglinide (PRANDIN) 2 mg tablet Take 1-2 tablets each meal (Patient taking differently: Take 1-2 tablets three times daily before meal) ONETOUCH ULTRA TEST test strip USE TO TEST BLOOD SUGAR THREE TIMES A DAY Lancets lancets Test blood sugar(s) 3 times daily. Blood-Glucose Meter (FREESTYLE SYSTEM KIT) monitoring kit 1 Each as needed. (Patient not taking: Reported on 02/19/2018 ) albuterol HFA (PROAIR HFA) 90 mcg/actuation inhaler Inhale 2 Puffs as instructed every 4 hours as needed. (Patient not taking: Reported on 02/19/2018 ) Insulin Syringe-Needle U-100 (INSULIN SYRINGE) 1/2 mL 30 x 5/16 syrg Use 1 syringe for each dose 1/day insulin needles, DISPOSABLE, (PEN NEEDLE) 31 gauge x 5/16 ndle Use one needle per dose. 1 per day. No current facility-administered medications for this visit. ALLERGIES Allergen Reactions - Adhesive Tape (Natty* Itching - Latex Rash - Simvastatin Other: See Comments myalgia Objective: Constitutional: Pt is a well developed 52 year old female who is alert, oriented, cooperative and in no apparent distress. Eyes: Following during examination. No redness or drainage. Respiratory: RR normal and nonlabored. Even breathing. No evidence of distress. Psychology: Patient is engaged during conversation. Normal affect and mood. Does not appear depressed or anxious. Palpable DP and PT pulses. Protective and vibratory sensation intact. Nails 1-5 b/l are within normal limits. Negative maceration to webspaces with negative openings in skin noted b/l. No ulcerations, lesions or rashes noted. Hyperkeratosis not seen. Prominent, tender 5th met base b/l with swelling and tenderness plantar foot. Thick callus also noted plantarly. Dorsal L foot mass appears to have resolved. No redness or warmth. No drainage. No lymphadenopathy. No lymphangitis. Patient has no pain to palpation of L calf. Negative Campos's test. Assessment: Bursitis b/l 5th metatarsal base. Controlled DM II Cardiomyopathy Can't take NSAID Plan: History and physical examination done today. Discussed options with patient today. Risks, benefits, alternatives and personnel discussed with patient who consents to proceed with injection today. 1.0 cc 2% lidocaine plain, 1.0 cc 0.5% marcaine plain and 0.25 cc kenalog 40 injected to plantar mass L foot. Instruction regarding possible steroid flare given to patient. RTC 8 weeks if not improving. unable to get MRI. Yesenia Lowe DPM Referring Provider: YESENIA LOWE [[id number]] Allergies As of Date: 02/19/2018 Noted Allergy Reaction ADHESIVE TAPE (ROSINS) 03/27/2006 9 - Itching LATEX 01/10/2011 2 - Rash SIMVASTATIN 11/04/2012 14 - Other: See Comments Comments: myalgia Date Reviewed: 02/19/2018 Reviewed by: Georgette Nicholson Ma - Fully Assessed Reason for Visit: Follow Up [171] Cmt: Left foot pain Primary Visit Diagnosis:Other bursal cyst, left ankle and foot [M71.372] Other Visit Diagnosis:Controlled type 2 diabetes mellitus without complication, with long-term current use of insulin (HCC) [E11.9, Z79.4] Order(s):[] lidocaine (PF) 10 mg/mL (1 %) 10 mg injection (XYLOCAINE)Disp: Rfl: [] bupivacaine (PF) 0.5 % (5 mg/mL) 5 mg injectionDisp: Rfl: [] triamcinolone acetonide 10 mg injection (KENALOG 40)Disp: Rfl: Prescriptions as of 02/19/2018 Sig: INSULIN LISPRO (U-100) 100 UN* Inject subcutaneously three t* OXYBUTYNIN CHLORIDE ER 15 MG * TAKE 1 TABLET BY MOUTH DAILY TRIAMCINOLONE ACETONIDE 0.1 %* APPLY TO AFFECTED AREA(S) ON * ASPIRIN 81 MG TABLET,DELAYED * Take 1 tablet by mouth once d* LORATADINE 10 MG TABLET Take 1 tablet by mouth once d* ALOGLIPTIN 25 MG TABLET Take 1 tablet by mouth once d* PRAMIPEXOLE 0.75 MG TABLET Take 1 tablet by mouth daily * MAGNESIUM OXIDE 400 MG TABLET Take 1 tablet by mouth twice * PANTOPRAZOLE 40 MG TABLET,DEL* Take 1 tablet by mouth twice * SERTRALINE 50 MG TABLET Take 1/2 tab once a day orall* ENALAPRIL MALEATE 2.5 MG TABL* Take 1 tablet by mouth once d* FUROSEMIDE 40 MG TABLET TAKE 1 TABLET DAILY SPIRONOLACTONE 25 MG TABLET TAKE 1 TABLET DAILY ATORVASTATIN 10 MG TABLET TAKE 1 TABLET DAILY CARVEDILOL 25 MG TABLET TAKE 1 TABLET TWICE A DAY INSULIN GLARGINE (U-100) 100 * Inject 21 Units subcutaneousl* FLUTICASONE 50 MCG/ACTUATION * Use 2 Sprays in each nostril * REPAGLINIDE 2 MG TABLET Take 1-2 tablets each meal Patient taking differently: Take 1-2 tablets three times * ONETOUCH ULTRA TEST STRIPS USE TO TEST BLOOD SUGAR THREE* LANCETS Test blood sugar(s) 3 times d* BLOOD-GLUCOSE METER KIT 1 Each as needed. Patient not taking: Reported on 02/19/2018 ALBUTEROL SULFATE HFA 90 MCG/* Inhale 2 Puffs as instructed * Patient not taking: Reported on 02/19/2018 INSULIN SYRINGE-NEEDLE U-100 * Use 1 syringe for each dose 1* PEN NEEDLE, DIABETIC 31 GAUGE* Use one needle per dose. 1 pe* Problem List As Of Date 02/19/2018 Noted Resolved Pure hypercholesterolemia [E78.00] Priority: A Diabetes mellitus (HCC) [E11.9] 08/16/2016 Priority: Moderate More... Essential hypertension, benign [I10] Priority: B Unspecified disorder of joint [719.9] 11/23/2016 More... 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 Cardiomyopathy, nonischemic [I42.8] INVALID FOR* Abnormality of gait [R26.9] INVALID FOR* DM (diabetes mellitus), type 2, uncontrolled w/*INVALID FOR*12/21/2015 Chronic nausea [R11.0] INVALID FOR*09/01/2015 Ganglion cyst of right foot [M67.471] INVALID FOR* ICD (implantable cardioverter-defibrillator) in*INVALID FOR*08/16/2016 Biventricular ICD (implantable cardioverter-def*INVALID FOR* Uncontrolled type 2 diabetes mellitus with diab*INVALID FOR* More... Neuropathy (HCC) [G62.9] INVALID FOR*08/16/2016 Restless leg syndrome [G25.81] INVALID FOR* Peroneal tendinitis [M76.70] INVALID FOR* Pain in joint, ankle and foot [M25.579] INVALID FOR* Visit Notes: >> Georgette Nicholson Ma SatFeb 19, 2018 2:11 PM Status: Signed Patient presents with: Follow Up: Left foot pain Prescriptions ordered this encounter Disp Refills Start End LIDOCAINE (PF) 10 MG/ML (1 %) INJECT* 02/20/2018 02/19/2018 Route: INTRADERM. BUPIVACAINE (PF) 0.5 % (5 MG/ML) INJ* 02/19/2018 02/19/2018 Route: INTRADERM. TRIAMCINOLONE ACETONIDE 40 MG/ML ADALID* 02/18/2018 02/19/2018 Route: IAtc Encounter Status:Closed by YESENIA LOWE DPM on 02/20/18 ALK PHOS ISOENZYMES Collected: 02/15/2018 Status: F Source: [place] 11:32 AM [facility] REPOSITORY TYPE CODE TESTS RESULT OUT OF REFERENCE UNITS RANGE LAB ALKPS 32-117 U/L Alkaline High Phosphatase 173 LAB ALKBO 10.7-68.3 % Alk Phos Bone % 28.4 LAB ALKBF 12.0-50.0 U/L Bone Fraction 49.1 LAB ALKLIV 26.0-86.2 % Alk Phos Liver % 71.6 LAB ALKLF 15.0-66.0 U/L Liver High Fraction 123.9 LAB ALKINT 0.0-24.2 % Alk Phos Intestine % 0.0 LAB ALKINF 0.0-15.3 U/L Intestine Fraction 0.0 Performed By: #### ALKISO #### [facility] [address] [place] [id number] HEPATIC FUNCTN PANEL Collected: 02/15/2018 Status: F Source: [place] 11:31 AM [facility] REPOSITORY TYPE CODE TESTS RESULT OUT OF REFERENCE UNITS RANGE LAB ALB 3.9-4.9 g/dL Albumin 4.3 LAB TBIL 0.2-1.3 mg/dL Bilirubin, Total 0.2 LAB CBIL <0.2 mg/dL Bilirubin,Conjuga <0.2 justa LAB ALKP 32-117 U/L Alkaline High Phosphatase 166 LAB AST 13-35 U/L AST 20 LAB ALT 7-38 U/L ALT 26 LAB TP 6.3-8.0 g/dL Protein, Total 7.5 Performed By: #### HFP, HACRNA #### [facility] [address] [place] [id number] HEPATITIS ACUTE RNA Collected: 02/15/2018 Status: F Source: [place] 11:31 AM [facility] REPOSITORY TYPE CODE TESTS RESULT OUT OF REFERENCE UNITS RANGE LAB AHAVM Negative Hepatitis A Ab Negative IgM LAB HBSAGA Negative HBsAg Negative LAB HCQPCR IU/mL Hepatitis C RNA HCV RNA not detected by PCR. Result Comment: Reference Range: Negative for HCV RNA The Linear Range of this assay is 15 IU/mL to 100,000,000 IU/mL. LAB AHBCM Negative Negative Hep B Core Ab, IgM Performed By: #### HFP, HACRNA #### [facility] [address] [place], [place] [address] PROGRESS Observed: 02/15/2018 Status: COMPLETED Source: [place] 10:23 AM [facility] REPOSITORY HNO ID: [id number] Author: Mello Ding Service: (none) Author Type: Physician Type: Progress Notes Filed: 02/15/2018 1:00 PM Note Text: Patient presents with: Fall Anxiety: Medication follow up HPI: Patient presents today for office visit for follow up on anxiety medication. Also wanted to talk about briusing on her stomach, that occurred after a fall. Has not been swollen. Wants to talk about how she should be taking insulin, not sure about when she should be taking short acting and long acting medication. Right now it taking it an hour before, wants to know if it can be taken at same time. Would like a referral to have allergy testing -having severe itching of eyes that she thinks is due to allergies. Depression: Zoloft is helping, feels anxious still sometimes. There are days that she has spells. Feels like she has a good support system. Going through divorce, and high stress situation. Talk significant DM: 8.0 A1C is elevated, and glucose was elevated. Likely due to being off of metformin because of [place]. Would like to consider other medication, to help get it lower. Discussed checking with DANITZA Payne. She will follow up and we will send labs to her. HLD:no myalgis. CAD: denies swelling, chest pain, or SOB. HLD:no myalgias. Fell in the shower: hit stomach. Has superficial bruises. No gi or gu complaints. Diet: states that it has been good. Has decreased ice cream, breads and sugars. Exercises: got a bicycle, has been trying to be more active although she states her weight. SocialHx: Component Latest Ref Rng AND Units 01/14/2018 Protein, Total 6.3 - 8.0 g/dL 7.4 Albumin 3.9 - 4.9 g/dL 4.2 Calcium 8.5 - 10.2 mg/dL 9.7 Bilirubin, Total 0.2 - 1.3 mg/dL 0.2 Alkaline Phosphatase 32 - 117 U/L 144 (H) AST 13 - 35 U/L 38 (H) Glucose 74 - 99 mg/dL 221 (H) BUN 7 - 21 mg/dL 12 Creatinine 0.58 - 0.96 mg/dL 0.80 Sodium 136 - 144 mmol/L 137 Potassium 3.7 - 5.1 mmol/L 4.4 Chloride 97 - 105 mmol/L 94 (L) CO2 22 - 30 mmol/L 26 Anion Gap 9 - 18 mmol/L 17 ALT 7 - 38 U/L 50 (H) eGFR- >60 eGFR-All Other Races . >60 Creatinine, Ur Random (UCRR) 20 - 300 mg/dL 17.1 (L) Albumin, Urine Random 0.0 - 23.0 mg/L <12.0 Albumin/Creat Ratio 0 - 30 mg/g Not calculated Hemoglobin A1C 4.3 - 5.6 % 8.0 (H) Estimated Average Glucose mg/dL 183 TSH 0.400 - 5.500 uU/mL 1.020 MEDICATIONS: Current Outpatient Prescriptions: insulin lispro ([facility]) 100 unit/mL inpn Inject subcutaneously three times daily before meals. Take 1 unit when blood sugar is above 200 or higher. DANITZA PAYNE oxybutynin ER (DITROPAN XL) 15 mg 24 hr Extended Rel Tab TAKE 1 TABLET BY MOUTH DAILY triamcinolone acetonide (KENALOG) 0.1 % ointment APPLY TO AFFECTED AREA(S) ON LEGS TWICE A DAY NEEDED *USE 2 WEEKS ON, 1 WEEK OFF *NOT FOR FACE, ARMPITS aspirin, enteric coated (ECOTRIN LOW STRENGTH) 81 mg EC tablet Take 1 tablet by mouth once daily. loratadine (CLARITIN) 10 mg tablet Take 1 tablet by mouth once daily. alogliptin 25 mg tab Take 1 tablet by mouth once daily. Pramipexole 0.75 mg tablet Take 1 tablet by mouth daily at bedtime. magnesium oxide (MAG-OX) 400 mg tablet Take 1 tablet by mouth twice daily. pantoprazole DR (PROTONIX) 40 mg tablet Take 1 tablet by mouth twice daily. sertraline (ZOLOFT) 50 mg tablet Take 1/2 tab once a day orally for one week then 1 tab once a day enalapril (VASOTEC) 2.5 mg tablet Take 1 tablet by mouth once daily. furosemide (LASIX) 40 mg tablet TAKE 1 TABLET DAILY spironolactone (ALDACTONE) 25 mg tablet TAKE 1 TABLET DAILY atorvastatin (LIPITOR) 10 mg tablet TAKE 1 TABLET DAILY carvedilol (COREG) 25 mg tablet TAKE 1 TABLET TWICE A DAY insulin glargine (BASAGLAR KWIKPEN) 100 unit/mL (3 mL) inpn Inject 21 Units subcutaneously every evening. fluticasone (FLONASE) 50 mcg/actuation nasal spray Use 2 Sprays in each nostril once daily. daPulse ULTRA TEST test strip USE TO TEST BLOOD SUGAR THREE TIMES A DAY Lancets lancets Test blood sugar(s) 3 times daily. Blood-Glucose Meter (FREESTYLE SYSTEM KIT) monitoring kit 1 Each as needed. albuterol HFA (PROAIR HFA) 90 mcg/actuation inhaler Inhale 2 Puffs as instructed every 4 hours as needed. repaglinide (PRANDIN) 2 mg tablet Take 1-2 tablets each meal (Patient taking differently: Take 1-2 tablets three times daily before meal) Insulin Syringe-Needle U-100 (INSULIN SYRINGE) 1/2 mL 30 x 5/16 syrg Use 1 syringe for each dose 1/day insulin needles, DISPOSABLE, (PEN NEEDLE) 31 gauge x 5/16 ndle Use one needle per dose. 1 per day. metFORMIN (GLUCOPHAGE) 500 mg tablet Take by mouth. 2 pills in AM, 1 pill with lunch, and 2 pills with supper No current facility-administered medications for this visit. ALLERGIES: ALLERGIES Allergen Reactions - Adhesive Tape (Natty* Itching - Latex Rash - Simvastatin Other: See Comments myalgia PAST MEDICAL HISTORY Diagnosis Date - Anxiety disorder in conditions classified elsewhere - Arthritis left knee with spur - Cardiomyopathy, nonischemic (HCC) 04/2013 - Degenerative joint disease involving multiple joints shoulders, right knee - Essential hypertension, benign - Family history of colon cancer 5y screening cycle - GERD (gastroesophageal reflux disease) - History of placement of internal cardiac defibrillator 09/03/2013 - Neuropathy (HCC) 02/09/2016 - Obesity, unspecified - Pure hypercholesterolemia - Restless leg syndrome 02/09/2016 - Snoring - Type II or unspecified type diabetes mellitus without mention of complication, not stated as uncontrolled - Vitamin D deficiency PAST SURGICAL HISTORY Procedure Laterality Date - APPENDECTOMY 2006 - COLONOSCOP W/ OR W/O [facility] SPEC 10/08/06 - COLONOSCOP W/ OR W/O [facility] SPEC 09/18/2011 Colonoscopy - COLONOSCOP W/ OR W/O [facility] SPEC 09/27/2016 Colonoscopy - DESTR LES BENIGN/ PREMAL 02/06/12 Ablation anal condyomata - EGD 09-01-15 - INSERT DUAL CHAMBER ICD 09/03/13 pacemaker/defibulator - KNEE SCOPE,DIAGNOSTIC right - LAPAROSCOPY, SURGICAL, APPENDECTOMY 10/22/06 - PAST SURGICAL HISTORY OF Right - ganglion cyst - PAST SURGICAL HISTORY OF Left 2016 cyst removed from left foot - TONSILLECTOMY AND ADENOIDECTOMY HX age 6 - TOTAL ABDOM HYSTERECTOMY 2005 menorrhagia/dysmenorrhea (negative for cancer) -- [place] FAMILY HISTORY Problem Relation Age of Onset - Colon Cancer Father in early 50s - Heart Father 55 [place] - Breast Cancer Mother in 50s - Diabetes Mother - Coronary Artery Disease Mother age early-mid 60's - Colon Cancer Paternal Grandmother - epilepsy [OTHER] Son - Breast Cancer Daughter - heart murmur [OTHER] Daughter Social History Marital status: Spouse name: Years of education: Number of children: 2 Occupational History 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 Only has soda per day, and now drinks decaf. Tea. Reviewed current medications, allergies, past medical history, surgical history, family history and social history today. REVIEW OF SYSTEMS All other reviewed and negative other than HPI. HEALTH MAINTENANCE: Reviewed health maintenance issues today and recommended the following in detail. DTAP,TDAP,TD(1 - Tdap) due on 1985 DIABETIC FOOT EXAM due on 05/11/2017 INFLUENZA(1) due on 03/15/2018 VITALS: BP 116/70 Pulse 68 Resp 16 Wt 97.1 kg (214 lb) BMI 31.60 kg/m? Last 4 Encounter Wt Readings: Date: Wt: 02/15/2018 97.1 kg (214 lb) 12/12/2017 93.4 kg (206 lb) 11/15/2017 92.5 kg (204 lb) 10/24/2017 94.1 kg (207 lb 8 oz) PHYSICAL EXAMINATION: General appearance: Well appearing, alert, in no acute distress, well-hydrated, well nourished. Skin: bilateral bruising on abd. Superficial. No palpable massess, redness or warmth. Head: Normocephalic, no masses, lesions, tenderness or abnormalities Lungs: Lungs clear to auscultation. No wheezing, rhonchi, rales Heart: RRR without murmur, gallop, or rubs. No ectopy Abdomen: Normal abdominal exam, Abdomen soft, non-tender. Bowel sounds normal. No masses, organomegaly Extremities: no edema. Musculoskeletal: Negative Peripheral pulses: Normal ASSESSMENT/PLAN: 1. Uncontrolled type 2 diabetes mellitus with diabetic neuropathy, without long-term current use of insulin (HCC) - ICD9: 250.62, 357.2, ICD10: E11.40, E11.65 (primary diagnosis) poorly controlled - Watch diet. She will call endo.labs forwarded. 2. Essential hypertension, benign - ICD9: 401.1, ICD10: I10 - good control - Continue current medication(s) - Goal of BP <140/90 3. Pure hypercholesterolemia - ICD9: 272.0, ICD10: E78.00 - continue to watch diet. 4. Restless leg syndrome - ICD9: 333.94, ICD10: G25.81 - continue meds. 5. Elevated liver enzymes - ICD9: 790.5, ICD10: R74.8 - follow labs. - ALK PHOS ISOENZYM BL - HEPATIC FUNCTION PNL - HEP ACUTE PANEL/RNA 6. Environmental allergies - ICD9: V15.09, ICD10: Z91.09 - CONSULT TO ALLERGY/IMMUNOLOGY 7. Cardiomyopathy, nonischemic (HCC) - ICD9: 425.4, ICD10: I42.8 - see cardio 8. Contusion of abdominal wall, initial encounter - ICD9: 922.2, ICD10: S30.1XXA - heat prn. Call if symptoms worsen at all or if not better in one to two weeks Mello Ding MD CNOV Observed: 02/15/2018 Status: COMPLETED Source: [place] 10:00 AM [facility] REPOSITORY Office Visit (FAMPWS) MICHELLE THOMAS ([id number]) 1965 F Date Time Provider Department 02/15/18 10:00 AM [facility] your visit today, we recorded the following information about you: Pulse Respiration Blood pressure Weight 68/minute 16/minute 116/70 97.1 kg Mello Ding MD 02/15/2018 1:00 PM Signed Patient presents with: Fall Anxiety: Medication follow up HPI: Patient presents today for office visit for follow up on anxiety medication. Also wanted to talk about briusing on her stomach, that occurred after a fall. Has not been swollen. Wants to talk about how she should be taking insulin, not sure about when she should be taking short acting and long acting medication. Right now it taking it an hour before, wants to know if it can be taken at same time. Would like a referral to have allergy testing -having severe itching of eyes that she thinks is due to allergies. Depression: Zoloft is helping, feels anxious still sometimes. There are days that she has spells. Feels like she has a good support system. Going through divorce, and high stress situation. Talk significant DM: 8.0 A1C is elevated, and glucose was elevated. Likely due to being off of metformin because of [place]. Would like to consider other medication, to help get it lower. Discussed checking with DANITZA Payne. She will follow up and we will send labs to her. HLD:no myalgis. CAD: denies swelling, chest pain, or SOB. HLD:no myalgias. Fell in the shower: hit stomach. Has superficial bruises. No gi or gu complaints. Diet: states that it has been good. Has decreased ice cream, breads and sugars. Exercises: got a bicycle, has been trying to be more active although she states her weight. SocialHx: Component Latest Ref Rng AND Units 01/14/2018 Protein, Total 6.3 - 8.0 g/dL 7.4 Albumin 3.9 - 4.9 g/dL 4.2 Calcium 8.5 - 10.2 mg/dL 9.7 Bilirubin, Total 0.2 - 1.3 mg/dL 0.2 Alkaline Phosphatase 32 - 117 U/L 144 (H) AST 13 - 35 U/L 38 (H) Glucose 74 - 99 mg/dL 221 (H) BUN 7 - 21 mg/dL 12 Creatinine 0.58 - 0.96 mg/dL 0.80 Sodium 136 - 144 mmol/L 137 Potassium 3.7 - 5.1 mmol/L 4.4 Chloride 97 - 105 mmol/L 94 (L) CO2 22 - 30 mmol/L 26 Anion Gap 9 - 18 mmol/L 17 ALT 7 - 38 U/L 50 (H) eGFR- >60 eGFR-All Other Races . >60 Creatinine, Ur Random (UCRR) 20 - 300 mg/dL 17.1 (L) Albumin, Urine Random 0.0 - 23.0 mg/L <12.0 Albumin/Creat Ratio 0 - 30 mg/g Not calculated Hemoglobin A1C 4.3 - 5.6 % 8.0 (H) Estimated Average Glucose mg/dL 183 TSH 0.400 - 5.500 uU/mL 1.020 MEDICATIONS: Current Outpatient Prescriptions: insulin lispro (ADMELOG SOLOSTAR U-100 INSULIN) 100 unit/mL inpn Inject subcutaneously three times daily before meals. Take 1 unit when blood sugar is above 200 or higher. DANITZA PAYNE oxybutynin ER (DITROPAN XL) 15 mg 24 hr Extended Rel Tab TAKE 1 TABLET BY MOUTH DAILY triamcinolone acetonide (KENALOG) 0.1 % ointment APPLY TO AFFECTED AREA(S) ON LEGS TWICE A DAY NEEDED *USE 2 WEEKS ON, 1 WEEK OFF *NOT FOR FACE, ARMPITS aspirin, enteric coated (ECOTRIN LOW STRENGTH) 81 mg EC tablet Take 1 tablet by mouth once daily. loratadine (CLARITIN) 10 mg tablet Take 1 tablet by mouth once daily. alogliptin 25 mg tab Take 1 tablet by mouth once daily. Pramipexole 0.75 mg tablet Take 1 tablet by mouth daily at bedtime. magnesium oxide (MAG-OX) 400 mg tablet Take 1 tablet by mouth twice daily. pantoprazole DR (PROTONIX) 40 mg tablet Take 1 tablet by mouth twice daily. sertraline (ZOLOFT) 50 mg tablet Take 1/2 tab once a day orally for one week then 1 tab once a day enalapril (VASOTEC) 2.5 mg tablet Take 1 tablet by mouth once daily. furosemide (LASIX) 40 mg tablet TAKE 1 TABLET DAILY spironolactone (ALDACTONE) 25 mg tablet TAKE 1 TABLET DAILY atorvastatin (LIPITOR) 10 mg tablet TAKE 1 TABLET DAILY carvedilol (COREG) 25 mg tablet TAKE 1 TABLET TWICE A DAY insulin glargine (BASAGLAR KWIKPEN) 100 unit/mL (3 mL) inpn Inject 21 Units subcutaneously every evening. fluticasone (FLONASE) 50 mcg/actuation nasal spray Use 2 Sprays in each nostril once daily. ONETOUCH ULTRA TEST test strip USE TO TEST BLOOD SUGAR THREE TIMES A DAY Lancets lancets Test blood sugar(s) 3 times daily. Blood-Glucose Meter (FREESTYLE SYSTEM KIT) monitoring kit 1 Each as needed. albuterol HFA (PROAIR HFA) 90 mcg/actuation inhaler Inhale 2 Puffs as instructed every 4 hours as needed. repaglinide (PRANDIN) 2 mg tablet Take 1-2 tablets each meal (Patient taking differently: Take 1-2 tablets three times daily before meal) Insulin Syringe-Needle U-100 (INSULIN SYRINGE) 1/2 mL 30 x 5/16 syrg Use 1 syringe for each dose 1/day insulin needles, DISPOSABLE, (PEN NEEDLE) 31 gauge x 5/16 ndle Use one needle per dose. 1 per day. metFORMIN (GLUCOPHAGE) 500 mg tablet Take by mouth. 2 pills in AM, 1 pill with lunch, and 2 pills with supper No current facility-administered medications for this visit. ALLERGIES: ALLERGIES Allergen Reactions - Adhesive Tape (Natty* Itching - Latex Rash - Simvastatin Other: See Comments myalgia PAST MEDICAL HISTORY Diagnosis Date - Anxiety disorder in conditions classified elsewhere - Arthritis left knee with spur - Cardiomyopathy, nonischemic (HCC) 04/2013 - Degenerative joint disease involving multiple joints shoulders, right knee - Essential hypertension, benign - Family history of colon cancer 5y screening cycle - GERD (gastroesophageal reflux disease) - History of placement of internal cardiac defibrillator 09/03/2013 - Neuropathy (HCC) 02/09/2016 - Obesity, unspecified - Pure hypercholesterolemia - Restless leg syndrome 02/09/2016 - Snoring - Type II or unspecified type diabetes mellitus without mention of complication, not stated as uncontrolled - Vitamin D deficiency PAST SURGICAL HISTORY Procedure Laterality Date - APPENDECTOMY 2006 - COLONOSCOP W/ OR W/O [facility] SPEC 10/08/06 - COLONOSCOP W/ OR W/O [facility] SPEC 09/18/2011 Colonoscopy - COLONOSCOP W/ OR W/O [facility] SPEC 09/27/2016 Colonoscopy - DESTR LES BENIGN/ PREMAL 02/06/12 Ablation anal condyomata - EGD 09-01-15 - INSERT DUAL CHAMBER ICD 09/03/13 pacemaker/defibulator - KNEE SCOPE,DIAGNOSTIC right - LAPAROSCOPY, SURGICAL, APPENDECTOMY 10/22/06 - PAST SURGICAL HISTORY OF Right 05-28 ganglion cyst - PAST SURGICAL HISTORY OF Left 2016 cyst removed from left foot - TONSILLECTOMY AND ADENOIDECTOMY HX age 6 - TOTAL ABDOM HYSTERECTOMY 2005 menorrhagia/dysmenorrhea (negative for cancer) -- [place] FAMILY HISTORY Problem Relation Age of Onset - Colon Cancer Father in early 50s - Heart Father 55 [place] - Breast Cancer Mother in 50s - Diabetes Mother - Coronary Artery Disease Mother age early-mid 60's - Colon Cancer Paternal Grandmother - epilepsy [OTHER] Son - Breast Cancer Daughter - heart murmur [OTHER] Daughter Social History Marital status: Spouse name: Years of education: Number of children: 2 Occupational History 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 Only has soda per day, and now drinks decaf. Tea. Reviewed current medications, allergies, past medical history, surgical history, family history and social history today. REVIEW OF SYSTEMS All other reviewed and negative other than HPI. HEALTH MAINTENANCE: Reviewed health maintenance issues today and recommended the following in detail. DTAP,TDAP,TD(1 - Tdap) due on 1985 DIABETIC FOOT EXAM due on 05/11/2017 INFLUENZA(1) due on 03/15/2018 VITALS: BP 116/70 Pulse 68 Resp 16 Wt 97.1 kg (214 lb) BMI 31.60 kg/m? Last 4 Encounter Wt Readings: Date: Wt: 02/15/2018 97.1 kg (214 lb) 12/12/2017 93.4 kg (206 lb) 11/15/2017 92.5 kg (204 lb) 10/24/2017 94.1 kg (207 lb 8 oz) PHYSICAL EXAMINATION: General appearance: Well appearing, alert, in no acute distress, well-hydrated, well nourished. Skin: bilateral bruising on abd. Superficial. No palpable massess, redness or warmth. Head: Normocephalic, no masses, lesions, tenderness or abnormalities Lungs: Lungs clear to auscultation. No wheezing, rhonchi, rales Heart: RRR without murmur, gallop, or rubs. No ectopy Abdomen: Normal abdominal exam, Abdomen soft, non-tender. Bowel sounds normal. No masses, organomegaly Extremities: no edema. Musculoskeletal: Negative Peripheral pulses: Normal ASSESSMENT/PLAN: 1. Uncontrolled type 2 diabetes mellitus with diabetic neuropathy, without long-term current use of insulin (HCC) - ICD9: 250.62, 357.2, ICD10: E11.40, E11.65 (primary diagnosis) poorly controlled - Watch diet. She will call endo.labs forwarded. 2. Essential hypertension, benign - ICD9: 401.1, ICD10: I10 - good control - Continue current medication(s) - Goal of BP <140/90 3. Pure hypercholesterolemia - ICD9: 272.0, ICD10: E78.00 - continue to watch diet. 4. Restless leg syndrome - ICD9: 333.94, ICD10: G25.81 - continue meds. 5. Elevated liver enzymes - ICD9: 790.5, ICD10: R74.8 - follow labs. - ALK PHOS ISOENZYM BL - HEPATIC FUNCTION PNL - HEP ACUTE PANEL/RNA 6. Environmental allergies - ICD9: V15.09, ICD10: Z91.09 - CONSULT TO ALLERGY/IMMUNOLOGY 7. Cardiomyopathy, nonischemic (HCC) - ICD9: 425.4, ICD10: I42.8 - see cardio 8. Contusion of abdominal wall, initial encounter - ICD9: 922.2, ICD10: S30.1XXA - heat prn. Call if symptoms worsen at all or if not better in one to two weeks MD Mello Portre MD 02/15/2018 11:21 AM Signed Please report t o the lab today and have the labs that were ordered today during your visit. You will be contacted either by a letter, a call from a staff member or by my chart once we have had the chance to review your results. Please call us in one week after having them drawn if you have not heard from us. Referring Provider: SELF [[id number]] Allergies As of Date: 02/15/2018 Noted Allergy Reaction ADHESIVE TAPE (ROSINS) 03/27/2006 9 - Itching LATEX 01/10/2011 2 - Rash SIMVASTATIN 11/04/2012 14 - Other: See Comments Comments: myalgia Date Reviewed: 12/12/2017 Reviewed by: Lilo Wheeler - Fully Assessed Reason for Visit: Fall [218] Anxiety [9] Cmt: Medication follow up Primary Visit Diagnosis:Uncontrolled type 2 diabetes mellitus with diabetic neuropathy, without long-term current use of insulin (HCC) [E11.40, E11.65] Other Visit Diagnoses:Essential hypertension, benign [I10] Pure hypercholesterolemia [E78.00] Restless leg syndrome [G25.81] Elevated liver enzymes [R74.8] Environmental allergies [Z91.09] Cardiomyopathy, nonischemic (HCC) [I42.8] Contusion of abdominal wall, initial encounter [S30.1XXA] Order(s):CONSULT TO ALLERGY/IMMUNOLOGY [9001] Order #: [id number]: 1 ALK PHOS ISOENZYM BL [SQALKISO] Order #: [id number] FUTURE HEPATIC FUNCTION PNL [SQHFP] Order #: [id number] FUTURE HEP ACUTE PANEL/RNA [SQHACRNA] Order #: [id number] FUTURE Prescriptions as of 02/15/2018 Sig: INSULIN LISPRO (U-100) 100 UN* Inject subcutaneously three t* OXYBUTYNIN CHLORIDE ER 15 MG * TAKE 1 TABLET BY MOUTH DAILY TRIAMCINOLONE ACETONIDE 0.1 %* APPLY TO AFFECTED AREA(S) ON * ASPIRIN 81 MG TABLET,DELAYED * Take 1 tablet by mouth once d* LORATADINE 10 MG TABLET Take 1 tablet by mouth once d* ALOGLIPTIN 25 MG TABLET Take 1 tablet by mouth once d* PRAMIPEXOLE 0.75 MG TABLET Take 1 tablet by mouth daily * MAGNESIUM OXIDE 400 MG TABLET Take 1 tablet by mouth twice * PANTOPRAZOLE 40 MG TABLET,DEL* Take 1 tablet by mouth twice * SERTRALINE 50 MG TABLET Take 1/2 tab once a day orall* ENALAPRIL MALEATE 2.5 MG TABL* Take 1 tablet by mouth once d* FUROSEMIDE 40 MG TABLET TAKE 1 TABLET DAILY SPIRONOLACTONE 25 MG TABLET TAKE 1 TABLET DAILY ATORVASTATIN 10 MG TABLET TAKE 1 TABLET DAILY CARVEDILOL 25 MG TABLET TAKE 1 TABLET TWICE A DAY INSULIN GLARGINE (U-100) 100 * Inject 21 Units subcutaneousl* FLUTICASONE 50 MCG/ACTUATION * Use 2 Sprays in each nostril * [employer] [id number] ULTRA TEST STRIPS USE TO TEST BLOOD SUGAR THREE* LANCETS Test blood sugar(s) 3 times d* BLOOD-GLUCOSE METER KIT 1 Each as needed. ALBUTEROL SULFATE HFA 90 MCG/* Inhale 2 Puffs as instructed * REPAGLINIDE 2 MG TABLET Take 1-2 tablets each meal Patient taking differently: Take 1-2 tablets three times * INSULIN SYRINGE-NEEDLE U-100 * Use 1 syringe for each dose 1* PEN NEEDLE, DIABETIC 31 GAUGE* Use one needle per dose. 1 pe* Problem List As Of Date 02/15/2018 Noted Resolved Pure hypercholesterolemia [E78.00] Priority: A Diabetes mellitus (HCC) [E11.9] 08/16/2016 Priority: Moderate More... Essential hypertension, benign [I10] Priority: B Unspecified disorder of joint [719.9] 11/23/2016 More... 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 Cardiomyopathy, nonischemic [I42.8] INVALID FOR* Abnormality of gait [R26.9] INVALID FOR* DM (diabetes mellitus), type 2, uncontrolled w/*INVALID FOR*12/21/2015 Chronic nausea [R11.0] INVALID FOR*09/01/2015 Ganglion cyst of right foot [M67.471] INVALID FOR* ICD (implantable cardioverter-defibrillator) in*INVALID FOR*08/16/2016 Biventricular ICD (implantable cardioverter-def*INVALID FOR* Uncontrolled type 2 diabetes mellitus with diab*INVALID FOR* More... Neuropathy (HCC) [G62.9] INVALID FOR*08/16/2016 Restless leg syndrome [G25.81] INVALID FOR* Peroneal tendinitis [M76.70] INVALID FOR* Pain in joint, ankle and foot [M25.579] INVALID FOR* Other instructions from your clinician: Please report t o the lab today and have the labs that were ordered today during your visit. You will be contacted either by a letter, a call from a staff member or by my chart once we have had the chance to review your results. Please call us in one week after having them drawn if you have not heard from us. Medications Discontinued During This Encounter metFORMIN (GLUCOPHAGE) 500 mg tablet 150 * 11 03/28/2017 02/15/2018 Sig: Take by mouth. 2 pills in AM, 1 pill with lunch, and 2 pills with supper Disc: Discontinued by another Health Care Provider Disposition: Return in about 6 months (around 08/18/2018). Follow-up and Disposition History Recorded Encounter Status:Closed by MELLO DING MD on 02/15/18 OBSOLETE Observed: 02/14/2018 Status: COMPLETED Source: [place] 8:00 AM [facility] OTHER [facility]US REPOSITORY Procedure ([facility]) WILLIAMMICHELLE Mcguire ([id number]) 1965 F Date Time Provider Department 02/14/18 8:00 AM [facility] During your visit today, we recorded the following information about you: Referring Provider: LILO WHEELER [[id number]] Allergies As of Date: 02/14/2018 Noted Allergy Reaction ADHESIVE TAPE (ROSINS) 03/27/2006 9 - Itching LATEX 01/10/2011 2 - Rash SIMVASTATIN 11/04/2012 14 - Other: See Comments Comments: myalgia Date Reviewed: 12/12/2017 Reviewed by: Lilo Wheeler - Fully Assessed Reason for Visit: Remote ICD Follow Up [1924] Visit Diagnosis:Cardiomyopathy, nonischemic (HCC) [I42.8] Prescriptions as of 02/14/2018 Sig: OXYBUTYNIN CHLORIDE ER 15 MG * TAKE 1 TABLET BY MOUTH DAILY TRIAMCINOLONE ACETONIDE 0.1 %* APPLY TO AFFECTED AREA(S) ON * ASPIRIN 81 MG TABLET,DELAYED * Take 1 tablet by mouth once d* LORATADINE 10 MG TABLET Take 1 tablet by mouth once d* ALOGLIPTIN 25 MG TABLET Take 1 tablet by mouth once d* PRAMIPEXOLE 0.75 MG TABLET Take 1 tablet by mouth daily * MAGNESIUM OXIDE 400 MG TABLET Take 1 tablet by mouth twice * PANTOPRAZOLE 40 MG TABLET,DEL* Take 1 tablet by mouth twice * SERTRALINE 50 MG TABLET Take 1/2 tab once a day orall* ENALAPRIL MALEATE 2.5 MG TABL* Take 1 tablet by mouth once d* FUROSEMIDE 40 MG TABLET TAKE 1 TABLET DAILY SPIRONOLACTONE 25 MG TABLET TAKE 1 TABLET DAILY ATORVASTATIN 10 MG TABLET TAKE 1 TABLET DAILY CARVEDILOL 25 MG TABLET TAKE 1 TABLET TWICE A DAY INSULIN GLARGINE (U-100) 100 * Inject 21 Units subcutaneousl* X METFORMIN 500 MG TABLET Take by mouth. 2 pills in AM* FLUTICASONE 50 MCG/ACTUATION * Use 2 Sprays in each nostril * ONETOUCH ULTRA TEST STRIPS USE TO TEST BLOOD SUGAR THREE* LANCETS Test blood sugar(s) 3 times d* BLOOD-GLUCOSE METER KIT 1 Each as needed. ALBUTEROL SULFATE HFA 90 MCG/* Inhale 2 Puffs as instructed * REPAGLINIDE 2 MG TABLET Take 1-2 tablets each meal Patient taking differently: Take 1-2 tablets three times * INSULIN SYRINGE-NEEDLE U-100 * Use 1 syringe for each dose 1* PEN NEEDLE, DIABETIC 31 GAUGE* Use one needle per dose. 1 pe* Problem List As Of Date 02/14/2018 Noted Resolved Pure hypercholesterolemia [E78.00] Priority: A Diabetes mellitus (HCC) [E11.9] 08/16/2016 Priority: Moderate More... Essential hypertension, benign [I10] Priority: B Unspecified disorder of joint [719.9] 11/23/2016 More... 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 Cardiomyopathy, nonischemic [I42.8] INVALID FOR* Abnormality of gait [R26.9] INVALID FOR* DM (diabetes mellitus), type 2, uncontrolled w/*INVALID FOR*12/21/2015 Chronic nausea [R11.0] INVALID FOR*09/01/2015 Ganglion cyst of right foot [M67.471] INVALID FOR* ICD (implantable cardioverter-defibrillator) in*INVALID FOR*08/16/2016 Biventricular ICD (implantable cardioverter-def*INVALID FOR* Uncontrolled type 2 diabetes mellitus with diab*INVALID FOR* More... Neuropathy (HCC) [G62.9] INVALID FOR*08/16/2016 Restless leg syndrome [G25.81] INVALID FOR* Peroneal tendinitis [M76.70] INVALID FOR* Pain in joint, ankle and foot [M25.579] INVALID FOR* Encounter Status:Closed by ALBERTINA PECK on 02/17/18 ENDOCRINOLOGY VISIT Observed: 01/26/2018 Status: F Source: [place] REPORT 6:36 AM [facility] REPOSITORY [facility] [address] [place] [address] OFFICE VISIT Date of Service: 01/14/18 MR#: [id number] Acct: [id number] Name: MICHELLE THOMAS Rep #: [id number] : 1965 Provider: Lissette Payne NP Age/Sex: 52/F Location[place] [facility] [place]: Signed HPI History of present illness Michelle Thomas is a 52 year old female who presents for follow up of diabetes type 2. Diagnosed in 2002. Continues on prandin, basaglar 35 units daily. Pt denies difficulty with injections or self monitoring of BG. Denies any signs of infection or irritation at site of injections. Reports taking insulin as directed At time of visit: -Pt denies symptoms of hypertensive emergency (CP,SOB,HUGHES, or blurred vision) and hypotension(dizziness or lightheadedness) -Pt denies symptoms of hypoglycemia ( sweaty, confusion, anxiety, tremor, hunger, palpitations) and hyperglycemia ( polydipsia, polyuria) -Pt denies potential medication adverse effect. Hypoglycemia Aware of hypoglycemia: yes Able to self treat low BG: Yes Frequent low Blood sugar: No Has supply of glucagon: no Diet has been eating 3 meals daily. Can carb count Occ bedtime snack SMBG average 120 s Checks 3-4 times daily Weight and fatigue symptoms: Denies snoring Cardiopulmonary symptoms: Denies myalgias GI symptoms: Reports nausea/dyspepsia; denies constipation, diarrhea or vomiting Other symptoms: Denies blurry vision or change in vision Self monitoring: Yes Glucometer type: freestyle Dietary compliance: Diabetes: good Diabetes education in past year: Yes Glucose testing: demonstrates correct use of meter Type: type 2 Exam Const General: comfortable, no acute distress Nutritional Appearance: well nourished, overweight Orientation: oriented x3 [facility] Head: normal to inspection, normocephalic Ears: hearing grossly normal bilaterally Mouth: oral mucosae normal, moist mucous membranes Teeth and gingiva: dentition normal Eyes General: appearance normal, both eyes and all related structures Eyelids: eyelids normal Conjunctivae: conjunctivae normal Sclera: sclerae normal Pupils: PERRL Neck Neck: normal visual inspection, no lymphadenopathy Resp Effort AND Inspection: normal respiratory effort, able to speak in complete sentences, symmetric chest movement Auscultation: Bilateral: Clear to Auscultation Cardio Rate: regular rate Rhythm: regular rhythm Heart Sounds: S1 normal, S2 normal GI Inspection: normal to inspection Auscultation: normal bowel sounds Palpation: soft Skin General: no rashes or lesions noted Wounds: no wounds Diabetic Foot Pulses: L dorsalis pedis pulse: normal, R dorsalis pedis pulse: normal Monofilament test: Left foot: normal Neuro General: gait normal, moves all extremities Cognition: normal cognition Speech: speech normal Gait: normal gait Extrem General: normal to inspection, no pedal edema Psych Appearance: well kempt Mental Status: mental status grossly normal Mood: congruent mood Affect: normal affect Speech and Movement: speech and movement normal Attitude: cooperative Thought Process: normal Thought Content: normal Judgment: judgment good Weight and fatigue symptoms: Denies snoring Cardiopulmonary symptoms: Denies chest pain at rest, dyspnea on exertion, lightheadedness or myalgias GI symptoms: Denies constipation, diarrhea, nausea/dyspepsia or vomiting Other symptoms: Denies blurry vision or change in vision Intake Vital Signs01/14/18 Height 5 ft 9 in 01/14/18 Weight: 208 lb 6 oz 01/14/18 Body Mass Index (BMI) 30.7 01/14/18 Blood Pressure 123/72 01/14/18 Blood Pressure Location Rt popliteal 01/14/18 Blood Pressure Position Supine 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 [Ecotrin] 81 mg PO DAILY 04/18/13 [History Confirmed 01/14/18] Furosemide [Lasix] 40 mg PO DAILY #30 tab 04/24/13 [Rx Confirmed 01/14/18] Magnesium Oxide [Mag-Ox 400] 400 mg PO BID #30 tab 06/01/13 [Rx Confirmed 01/14/18] alogliptin 25 mg tablet 25 mg PO DAILY 08/12/17 [History Confirmed 01/14/18] atorvastatin 10 mg tablet 10 mg PO DAILY 08/12/17 [History Confirmed 01/14/18] carvedilol 12.5 mg tablet 25 mg PO BID tab 08/12/17 [History Confirmed 01/14/18] loratadine 10 mg tablet 10 mg PO DAILY 08/12/17 [History Confirmed 01/14/18] oxybutynin chloride 5 mg tablet 15 mg PO DAILY 08/12/17 [History Confirmed 01/14/18] pantoprazole 40 mg tablet,delayed release 40 mg PO BID tab 08/12/17 [History Confirmed 01/14/18] pramipexole 0.25 mg tablet 0.75 mg PO QHS tab 08/12/17 [History Confirmed 01/14/18] spironolactone 25 mg tablet 25 mg PO DAILY 08/12/17 [History Confirmed 01/14/18] repaglinide 2 mg tablet See Label Instructions PO TID #240 tab 10/07/17 [Rx Confirmed 01/14/18] metformin 500 mg tablet 500 mg PO .COMPLEX #150 tab 10/28/17 [Rx Confirmed 01/14/18] Enalapril Maleate [Vasotec] 2.5 mg PO DAILY 11/07/17 [History Confirmed 01/14/18] Carlos Gaston U-100 Insulin 100 unit/mL (3 mL) subcutaneous 35 unit SC DAILY #15 ml NS 01/02/18 [Rx Confirmed 01/14/18] lancets 33 gauge See Dose Instructions .ROUTE .MEDSUPPLY #150 ea 01/14/18 [Rx Confirmed 01/14/18] Is last menstrual period known: No Post menopausal: Yes Patient : No Nurse's Note: blood sugars : low : 75 high : 308 [facility] Medical History Gout (Acute) Heart disease (Acute) Nonischemic dilated cardiomyopathy (Acute) Arthritis (Chronic) Diabetes type 2, controlled (Chronic) HTN (hypertension) (Chronic) Headache (Chronic) Hyperlipidemia (Chronic) Pulmonary HTN (Chronic) RLS (restless legs syndrome) (Chronic) Seasonal allergies (Chronic) Surgical History H/O colectomy (Acute) History of hysteroscopy (Acute) History of left heart catheterization (Acute) Hx of appendectomy (Acute) Family History Father Heart disease Myocardial infarction CAD (coronary artery disease) Mother CAD (coronary artery disease) Heart disease Social History Smoking Status: Never smoker second hand exposure: No alcohol intake: current alcohol intake frequency: a few times a month substance use type: does not use ROS Const Constitutional: Positive for headache(s); no anorexia, body ache, chills, fever(s), decreased energy, malaise, night sweats, weight change, sleep problems, other, frequent falls, weakness, abnormal sleep pattern, change in appetite, fatigue, excessive sweating or snoring Eyes Eyes: Positive for other (itchy eyes); no double vision, discharge, dry eyes, bulging eyes, floaters, eye pain, light sensitivity, spots in vision, tunnel vision, visual disturbances, blurry vision or change in vision ENT ENT: Positive for headache(s); no ear pain, ear discharge, ear pressure, hearing loss, tinnitus, dizziness/vertigo, balance problems, nosebleed/epistaxis, nasal obstruction, nose pain, sinus pressure, sinus pain, post nasal drip, facial pain, dental pain, dry mouth, bad breath, hoarseness, mouth lesions, mouth pain, sore throat, difficulty swallowing, neck pain, abnormal hearing, other, lip swelling, tongue swelling or throat swelling Resp Respiratory: No cough, change in phlegm color, chest congestion, excessive phlegm production, hemoptysis, pain on inspiration, shortness of breath, pain with cough, stridor, other, wheezing or snoring Cardio Cardiology: No chest pain with exertion, leg pain with exertion, shortness of breath, generalized swelling, irregular heart rhythm, orthopnea, radiating jaw, neck or arm pain, fast heart rate, slow heart rate, palpitations, other, excessive sweating, chest pain at rest, dyspnea on exertion or lightheadedness Gastro GI: No abdominal pain, belching, bloating, change in bowel habits, change in stool character, coffee ground emesis, cramping, heartburn, difficulty swallowing, feeling full early, excessive flatus, incontinent of stools, Vomiting blood/hematemesis, blood in stool, loose stools, Black,tarry stools, pain with swallowing, other, constipation, diarrhea, nausea/dyspepsia or vomiting Genitourinary-Female: No difficulty urinating, burning urination, painful urination, urinary incontinence, urinary frequency, urinary urgency, urinary hesitancy, urinary retention, blood in urine, Frequent nighttime urination/ nocturia, post void dribbling, suprapubic fullness, side pain, sexual problems, genital lesions, genital itching, hot flashes, abnormal periods, abnormal vaginal bleeding, absent period, painful periods, light periods, heavy periods, difficulty getting , painful intercourse, pelvic pain, vaginal dryness, vaginal odor, Vaginal Itching or other Musc Musculoskeletal: Positive for back pain; no joint pain, deformity, joint swelling, limited range of motion, loss of height, muscle cramps, muscle weakness, decreased muscle mass, neck pain, radiating pain into limb, stiffness, other, abnormal walking, numbness, tingling or body aches Skin Skin: Positive for sores (l knee); no acne, hair loss, change in hair, nail changes, boil, change in skin color, dry skin, redness, excessive hair growth, yellowing of the skin, lesions, rash, skin pain, skin ulcer, skin swelling, wounds, other or itching Breast Breast: No other Neuro Neurology: Positive for headache(s); no frequent falls, weakness, visual disturbances, abnormal hearing, abnormal walking, numbness or tingling Psych Psychiatric: No abnormal sleep pattern, No change in appetite Endo Endocrine: No fatigue, other or excessive sweating Aller/Imm Allergy/Immunologic: No lip swelling, tongue swelling, throat swelling, wheezing or itchy eyes Assessment AND Plan Problems 1. Diabetes mellitus type 2 in obese E11.69; E66.9 2. Essential hypertension I10 3. Hyperlipidemia associated with type 2 diabetes mellitus E11.69; E78.5 Orders Orders: Medications New: Plan Detail Additional Comments 1. Please schedule follow up in 3 months. 2. Lab work one week before appointment. 3. Discussed importance of regular exercise and recommend starting or continuing a regular exercise program for good health. 4. The patient was encouraged to lose weight for good health 5. The importance of monitoring blood sugar regularly was reviewed. 6. The importance of monitoring the HBA1c level regularly was reviewed. 7. The importance of prper foot care and regularly checking feet to prevent sores and loss of limbs was reviewed. 8. The importance of keeping BP at or below 130/80 to prevent stroke, heart attacks, kidney failure, blindness was reviewed. Spent approximately 30 minutes with patient with over 50% of time spent in discussion and counseling regarding medication adjustment, symptoms and treatment of hypoglycemia, diet adherence, and checking BG before driving. Coding Level of Care Code Off vis,est,level 4 Diagnoses Diabetes mellitus type 2 in obese E11.69; E66.9 Essential hypertension I10 Hypertension type: essential hypertension Hyperlipidemia associated with type 2 diabetes mellitus E11.69; E78.5 01/26/18 0636 <Electronically signed by Lissette NOLAN> Date Lissette NOLAN Cosigner Signature: Date (if applicable) CC: PROGRESS Observed: 12/12/2017 Status: COMPLETED Source: [place] 3:02 PM CLINIC OTHER CAMPUS REPOSITORY [facility] ID: [id number] Author: Lilo Wheleer Service: (none) Author Type: Physician Type: Progress Notes Filed: 12/12/2017 3:33 PM Note Text: Subjective HPI 52-year-old female with history of essential hypertension, diabetes, nonischemic cardiomyopathy, status post GUN EXAMINER-D system implantation at [facility] in 2013, apparently for primary sudden cardiac prevention, referred by Dr. Tobias Martinez to establish device follow-up. Michelle reports feeling reasonably well, denies chest pain, dizziness, syncope or device shocks. She does experience exertional dyspnea after walking up 2 flights of stairs. In addition approximately a month ago she was having episodes of palpitation that she associated with stress. She had an external monitor that demonstrated sinus rhythm with no sustained arrhythmia. Her initial interrogation at [facility] device clinic today demonstrated presence of [employer] GUN EXAMINER-D system. Full report is not available at the time of this dictation, however verbal report indicated that LV lead threshold was approximately 1.7 V at 1 ms pulse width. Right atrial and right ventricular lead function was normal. There was no mode switch episodes, no ventricular arrhythmia. She did have several episodes of PMT. Battery longevity of approximately 5 more years, normal function overall. ECG demonstrated sinus rhythm with ventricular pacing. PAST MEDICAL HISTORY Diagnosis Date - Anxiety disorder in conditions classified elsewhere - Arthritis left knee with spur - Cardiomyopathy, nonischemic (HCC) 04/2013 - Degenerative joint disease involving multiple joints shoulders, right knee - Essential hypertension, benign - Family history of colon cancer 5y screening cycle - GERD (gastroesophageal reflux disease) - History of placement of internal cardiac defibrillator 09/03/2013 - Neuropathy (HCC) 02/09/2016 - Obesity, unspecified - Pure hypercholesterolemia - Restless leg syndrome 02/09/2016 - Snoring - Type II or unspecified type diabetes mellitus without mention of complication, not stated as uncontrolled - Vitamin D deficiency PAST SURGICAL HISTORY Procedure Laterality Date - APPENDECTOMY 2006 - COLONOSCOP W/ OR W/O [facility] SPEC 10/08/06 - COLONOSCOP W/ OR W/O [facility] SPEC 09/18/2011 Colonoscopy - COLONOSCOP W/ OR W/O [facility] SPEC 09/27/2016 Colonoscopy - DESTR LES BENIGN/ PREMAL 02/06/12 Ablation anal condyomata - EGD 09-01-15 - INSERT DUAL CHAMBER ICD 09/03/13 pacemaker/defibulator - KNEE SCOPE,DIAGNOSTIC right - LAPAROSCOPY, SURGICAL, APPENDECTOMY 10/22/06 - PAST SURGICAL HISTORY OF Right - ganglion cyst - PAST SURGICAL HISTORY OF Left 2015 cyst removed from left foot - TONSILLECTOMY AND ADENOIDECTOMY HX age 6 - TOTAL ABDOM HYSTERECTOMY 2005 menorrhagia/dysmenorrhea (negative for cancer) -- [place] Current Outpatient Prescriptions on File Prior to Visit: triamcinolone acetonide (KENALOG) 0.1 % ointment APPLY TO AFFECTED AREA(S) ON LEGS TWICE A DAY NEEDED *USE 2 WEEKS ON, 1 WEEK OFF *NOT FOR FACE, ARMPITS aspirin, enteric coated (ECOTRIN LOW STRENGTH) 81 mg EC tablet Take 1 tablet by mouth once daily. loratadine (CLARITIN) 10 mg tablet Take 1 tablet by mouth once daily. alogliptin 25 mg tab Take 1 tablet by mouth once daily. Pramipexole 0.75 mg tablet Take 1 tablet by mouth daily at bedtime. magnesium oxide (MAG-OX) 400 mg tablet Take 1 tablet by mouth twice daily. pantoprazole DR (PROTONIX) 40 mg tablet Take 1 tablet by mouth twice daily. sertraline (ZOLOFT) 50 mg tablet Take 1/2 tab once a day orally for one week then 1 tab once a day oxybutynin ER (DITROPAN XL) 15 mg 24 hr Extended Rel Tab Take 1 tablet by mouth once daily. enalapril (VASOTEC) 2.5 mg tablet Take 1 tablet by mouth once daily. furosemide (LASIX) 40 mg tablet TAKE 1 TABLET DAILY spironolactone (ALDACTONE) 25 mg tablet TAKE 1 TABLET DAILY atorvastatin (LIPITOR) 10 mg tablet TAKE 1 TABLET DAILY carvedilol (COREG) 25 mg tablet TAKE 1 TABLET TWICE A DAY insulin glargine (BASAGLAR KWIKPEN) 100 unit/mL (3 mL) inpn Inject 21 Units subcutaneously every evening. metFORMIN (GLUCOPHAGE) 500 mg tablet Take by mouth. 2 pills in AM, 1 pill with lunch, and 2 pills with supper fluticasone (FLONASE) 50 mcg/actuation nasal spray Use 2 Sprays in each nostril once daily. ONETOUCH ULTRA TEST test strip USE TO TEST BLOOD SUGAR THREE TIMES A DAY Lancets lancets Test blood sugar(s) 3 times daily. Blood-Glucose Meter (FREESTYLE SYSTEM KIT) monitoring kit 1 Each as needed. albuterol HFA (PROAIR HFA) 90 mcg/actuation inhaler Inhale 2 Puffs as instructed every 4 hours as needed. repaglinide (PRANDIN) 2 mg tablet Take 1-2 tablets each meal (Patient taking differently: Take 1-2 tablets three times daily before meal) Insulin Syringe-Needle U-100 (INSULIN SYRINGE) 1/2 mL 30 x 5/16 syrg Use 1 syringe for each dose 1/day insulin needles, DISPOSABLE, (PEN NEEDLE) 31 gauge x 5/16 ndle Use one needle per dose. 1 per day. Current Outpatient Prescriptions: triamcinolone acetonide (KENALOG) 0.1 % ointment APPLY TO AFFECTED AREA(S) ON LEGS TWICE A DAY NEEDED *USE 2 WEEKS ON, 1 WEEK OFF *NOT FOR FACE, ARMPITS Disp: 80 g Rfl: 0 aspirin, enteric coated (ECOTRIN LOW STRENGTH) 81 mg EC tablet Take 1 tablet by mouth once daily. Disp: 30 tablet Rfl: 11 loratadine (CLARITIN) 10 mg tablet Take 1 tablet by mouth once daily. Disp: 30 tablet Rfl: 11 alogliptin 25 mg tab Take 1 tablet by mouth once daily. Disp: 30 tablet Rfl: 11 Pramipexole 0.75 mg tablet Take 1 tablet by mouth daily at bedtime. Disp: 30 tablet Rfl: 5 magnesium oxide (MAG-OX) 400 mg tablet Take 1 tablet by mouth twice daily. Disp: 60 tablet Rfl: [address] (PROTONIX) 40 mg tablet Take 1 tablet by mouth twice daily. Disp: 56 tablet Rfl: 3 sertraline (ZOLOFT) 50 mg tablet Take 1/2 tab once a day orally for one week then 1 tab once a day Disp: 30 tablet Rfl: 5 oxybutynin ER (DITROPAN XL) 15 mg 24 hr Extended Rel Tab Take 1 tablet by mouth once daily. Disp: 30 tablet Rfl: 5 enalapril (VASOTEC) 2.5 mg tablet Take 1 tablet by mouth once daily. Disp: 90 tablet Rfl: 3 furosemide (LASIX) 40 mg tablet TAKE 1 TABLET DAILY Disp: 90 tablet Rfl: 3 spironolactone (ALDACTONE) 25 mg tablet TAKE 1 TABLET DAILY Disp: 90 tablet Rfl: 3 atorvastatin (LIPITOR) 10 mg tablet TAKE 1 TABLET DAILY Disp: 90 tablet Rfl: 3 carvedilol (COREG) 25 mg tablet TAKE 1 TABLET TWICE A DAY Disp: 180 tablet Rfl: 3 insulin glargine (BASAGLAR KWIKPEN) 100 unit/mL (3 mL) inpn Inject 21 Units subcutaneously every evening. Disp: 5 Pen Rfl: 5 metFORMIN (GLUCOPHAGE) 500 mg tablet Take by mouth. 2 pills in AM, 1 pill with lunch, and 2 pills with supper Disp: 150 tablet Rfl: 11 fluticasone (FLONASE) 50 mcg/actuation nasal spray Use 2 Sprays in each nostril once daily. Disp: 1 Bottle Rfl: 11 ONETOUCH ULTRA TEST test strip USE TO TEST BLOOD SUGAR THREE TIMES A DAY Disp: 300 Strip Rfl: 3 Lancets lancets Test blood sugar(s) 3 times daily. Disp: 300 Each Rfl: 3 Blood-Glucose Meter (FREESTYLE SYSTEM KIT) monitoring kit 1 Each as needed. Disp: 1 Each Rfl: 0 albuterol HFA (PROAIR HFA) 90 mcg/actuation inhaler Inhale 2 Puffs as instructed every 4 hours as needed. Disp: 1 Inhaler Rfl: 5 repaglinide (PRANDIN) 2 mg tablet Take 1-2 tablets each meal (Patient taking differently: Take 1-2 tablets three times daily before meal) Disp: 180 tablet Rfl: 11 Insulin Syringe-Needle U-100 (INSULIN SYRINGE) 1/2 mL 30 x 5/16 syrg Use 1 syringe for each dose 1/day Disp: 100 Syringe Rfl: 11 insulin needles, DISPOSABLE, (PEN NEEDLE) 31 gauge x 5/16 ndle Use one needle per dose. 1 per day. Disp: 100 Each Rfl: 11 No current facility-administered medications for this visit. Review of Systems Constitutional: Negative for chills and fever. HENT: Negative for congestion. Eyes: Negative for double vision. Respiratory: Positive for shortness of breath. Negative for cough and hemoptysis. Cardiovascular: Negative for chest pain, palpitations and PND. Gastrointestinal: Negative for abdominal pain, nausea and vomiting. Genitourinary: Negative for hematuria. Musculoskeletal: Negative for back pain. Neurological: Negative for dizziness and loss of consciousness. Psychiatric/Behavioral: Negative for depression. Objective Physical Exam Constitutional: She is oriented to person, place, and time and well-developed, well-nourished, and in no distress. BP 112/78 Pulse 84 Resp 16 Ht 5' 9 (1.75m) Wt 206 lb (93.4kg) SpO2 98% BMI 30.41 kg/(m2). HENT: Head: Normocephalic and atraumatic. Eyes: Conjunctivae are normal. Cardiovascular: Normal rate, regular rhythm and normal pulses. Pulses: Radial pulses are 2+ on the right side, and 2+ on the left side. Pulmonary/Chest: Effort normal. No stridor. No respiratory distress. She has no rales. Musculoskeletal: She exhibits no edema. Neurological: She is alert and oriented to person, place, and time. Skin: Skin is warm and dry. No pallor. Psychiatric: Affect normal. Assessment and recommendations: 52-year-old female with nonischemic cardiomyopathy, essential hypertension, diabetes, GUN EXAMINER-D system in situ. Device interrogation revealed normal function. There was no evidence of atrial fibrillation. The patient will be enrolled in [facility] device clinic for remote monitoring. We'll see her back in office in one year. CNOV Observed: 12/12/2017 Status: COMPLETED Source: [place] 2:00 PM CLINIC OTHER CAMPUS REPOSITORY Office Visit (AGCARDPHRA) MICHELLE THOMAS ([id number]) 1965 F Date Time Provider Department 12/12/17 2:00 PM [facility]ER[facility] During your visit today, we recorded the following information about you: Pulse Respiration Blood pressure Weight 84/minute 16/minute 112/78 93.4 kg Height 1.753 m Ludy Beavers CMA 12/12/2017 2:45 PM Signed Patient denies any cardiac complaints today. JUNIOR Suárez MD 12/12/2017 3:33 PM Signed Subjective HPI 52-year-old female with history of essential hypertension, diabetes, nonischemic cardiomyopathy, status post GUN EXAMINER-D system implantation at [facility] in 2013, apparently for primary sudden cardiac prevention, referred by Dr. Tobias Martinez to establish device follow- up. Michelle reports feeling reasonably well, denies chest pain, dizziness, syncope or device shocks. She does experience exertional dyspnea after walking up 2 flights of stairs. In addition approximately a month ago she was having episodes of palpitation that she associated with stress. She had an external monitor that demonstrated sinus rhythm with no sustained arrhythmia. Her initial interrogation at [facility] device clinic today demonstrated presence of [employer] GUN EXAMINER-D system. Full report is not available at the time of this dictation, however verbal report indicated that LV lead threshold was approximately 1.7 V at 1 ms pulse width. Right atrial and right ventricular lead function was normal. There was no mode switch episodes, no ventricular arrhythmia. She did have several episodes of PMT. Battery longevity of approximately 5 more years, normal function overall. ECG demonstrated sinus rhythm with ventricular pacing. PAST MEDICAL HISTORY Diagnosis Date - Anxiety disorder in conditions classified elsewhere - Arthritis left knee with spur - Cardiomyopathy, nonischemic (HCC) 04/2013 - Degenerative joint disease involving multiple joints shoulders, right knee - Essential hypertension, benign - Family history of colon cancer 5y screening cycle - GERD (gastroesophageal reflux disease) - History of placement of internal cardiac defibrillator 09/03/2013 - Neuropathy (HCC) 02/09/2016 - Obesity, unspecified - Pure hypercholesterolemia - Restless leg syndrome 02/09/2016 - Snoring - Type II or unspecified type diabetes mellitus without mention of complication, not stated as uncontrolled - Vitamin D deficiency PAST SURGICAL HISTORY Procedure Laterality Date - APPENDECTOMY 2006 - COLONOSCOP W/ OR W/O [facility] SPEC 10/08/06 - COLONOSCOP W/ OR W/O [facility] SPEC 09/18/2011 Colonoscopy - COLONOSCOP W/ OR W/O [facility] SPEC 09/27/2016 Colonoscopy - DESTR LES BENIGN/ PREMAL 02/06/12 Ablation anal condyomata - EGD 09-01-15 - INSERT DUAL CHAMBER ICD 09/03/13 pacemaker/defibulator - KNEE SCOPE,DIAGNOSTIC right - LAPAROSCOPY, SURGICAL, APPENDECTOMY 10/22/06 - PAST SURGICAL HISTORY OF Right - ganglion cyst - PAST SURGICAL HISTORY OF Left 2016 cyst removed from left foot - TONSILLECTOMY AND ADENOIDECTOMY HX age 6 - TOTAL ABDOM HYSTERECTOMY 2005 menorrhagia/dysmenorrhea (negative for cancer) -- [place] Current Outpatient Prescriptions on File Prior to Visit: triamcinolone acetonide (KENALOG) 0.1 % ointment APPLY TO AFFECTED AREA(S) ON LEGS TWICE A DAY NEEDED *USE 2 WEEKS ON, 1 WEEK OFF *NOT FOR FACE, ARMPITS aspirin, enteric coated (ECOTRIN LOW STRENGTH) 81 mg EC tablet Take 1 tablet by mouth once daily. loratadine (CLARITIN) 10 mg tablet Take 1 tablet by mouth once daily. alogliptin 25 mg tab Take 1 tablet by mouth once daily. Pramipexole 0.75 mg tablet Take 1 tablet by mouth daily at bedtime. magnesium oxide (MAG-OX) 400 mg tablet Take 1 tablet by mouth twice daily. pantoprazole DR (PROTONIX) 40 mg tablet Take 1 tablet by mouth twice daily. sertraline (ZOLOFT) 50 mg tablet Take 1/2 tab once a day orally for one week then 1 tab once a day oxybutynin ER (DITROPAN XL) 15 mg 24 hr Extended Rel Tab Take 1 tablet by mouth once daily. enalapril (VASOTEC) 2.5 mg tablet Take 1 tablet by mouth once daily. furosemide (LASIX) 40 mg tablet TAKE 1 TABLET DAILY spironolactone (ALDACTONE) 25 mg tablet TAKE 1 TABLET DAILY atorvastatin (LIPITOR) 10 mg tablet TAKE 1 TABLET DAILY carvedilol (COREG) 25 mg tablet TAKE 1 TABLET TWICE A DAY insulin glargine (BASAGLAR KWIKPEN) 100 unit/mL (3 mL) inpn Inject 21 Units subcutaneously every evening. metFORMIN (GLUCOPHAGE) 500 mg tablet Take by mouth. 2 pills in AM, 1 pill with lunch, and 2 pills with supper fluticasone (FLONASE) 50 mcg/actuation nasal spray Use 2 Sprays in each nostril once daily. ONETOUCH ULTRA TEST test strip USE TO TEST BLOOD SUGAR THREE TIMES A DAY Lancets lancets Test blood sugar(s) 3 times daily. Blood-Glucose Meter (FREESTYLE SYSTEM KIT) monitoring kit 1 Each as needed. albuterol HFA (PROAIR HFA) 90 mcg/actuation inhaler Inhale 2 Puffs as instructed every 4 hours as needed. repaglinide (PRANDIN) 2 mg tablet Take 1-2 tablets each meal (Patient taking differently: Take 1-2 tablets three times daily before meal) Insulin Syringe-Needle U-100 (INSULIN SYRINGE) 1/2 mL 30 x 5/16 syrg Use 1 syringe for each dose 1/day insulin needles, DISPOSABLE, (PEN NEEDLE) 31 gauge x 5/16 ndle Use one needle per dose. 1 per day. Current Outpatient Prescriptions: triamcinolone acetonide (KENALOG) 0.1 % ointment APPLY TO AFFECTED AREA(S) ON LEGS TWICE A DAY NEEDED *USE 2 WEEKS ON, 1 WEEK OFF *NOT FOR FACE, ARMPITS Disp: 80 g Rfl: 0 aspirin, enteric coated (ECOTRIN LOW STRENGTH) 81 mg EC tablet Take 1 tablet by mouth once daily. Disp: 30 tablet Rfl: 11 loratadine (CLARITIN) 10 mg tablet Take 1 tablet by mouth once daily. Disp: 30 tablet Rfl: 11 alogliptin 25 mg tab Take 1 tablet by mouth once daily. Disp: 30 tablet Rfl: 11 Pramipexole 0.75 mg tablet Take 1 tablet by mouth daily at bedtime. Disp: 30 tablet Rfl: 5 magnesium oxide (MAG-OX) 400 mg tablet Take 1 tablet by mouth twice daily. Disp: 60 tablet Rfl: [address] (PROTONIX) 40 mg tablet Take 1 tablet by mouth twice daily. Disp: 56 tablet Rfl: 3 sertraline (ZOLOFT) 50 mg tablet Take 1/2 tab once a day orally for one week then 1 tab once a day Disp: 30 tablet Rfl: 5 oxybutynin ER (DITROPAN XL) 15 mg 24 hr Extended Rel Tab Take 1 tablet by mouth once daily. Disp: 30 tablet Rfl: 5 enalapril (VASOTEC) 2.5 mg tablet Take 1 tablet by mouth once daily. Disp: 90 tablet Rfl: 3 furosemide (LASIX) 40 mg tablet TAKE 1 TABLET DAILY Disp: 90 tablet Rfl: 3 spironolactone (ALDACTONE) 25 mg tablet TAKE 1 TABLET DAILY Disp: 90 tablet Rfl: 3 atorvastatin (LIPITOR) 10 mg tablet TAKE 1 TABLET DAILY Disp: 90 tablet Rfl: 3 carvedilol (COREG) 25 mg tablet TAKE 1 TABLET TWICE A DAY Disp: 180 tablet Rfl: 3 insulin glargine (BASAGLAR KWIKPEN) 100 unit/mL (3 mL) inpn Inject 21 Units subcutaneously every evening. Disp: 5 Pen Rfl: 5 metFORMIN (GLUCOPHAGE) 500 mg tablet Take by mouth. 2 pills in AM, 1 pill with lunch, and 2 pills with supper Disp: 150 tablet Rfl: 11 fluticasone (FLONASE) 50 mcg/actuation nasal spray Use 2 Sprays in each nostril once daily. Disp: 1 Bottle Rfl: 11 ONETOUCH ULTRA TEST test strip USE TO TEST BLOOD SUGAR THREE TIMES A DAY Disp: 300 Strip Rfl: 3 Lancets lancets Test blood sugar(s) 3 times daily. Disp: 300 Each Rfl: 3 Blood-Glucose Meter (FREESTYLE SYSTEM KIT) monitoring kit 1 Each as needed. Disp: 1 Each Rfl: 0 albuterol HFA (PROAIR HFA) 90 mcg/actuation inhaler Inhale 2 Puffs as instructed every 4 hours as needed. Disp: 1 Inhaler Rfl: 5 repaglinide (PRANDIN) 2 mg tablet Take 1-2 tablets each meal (Patient taking differently: Take 1-2 tablets three times daily before meal) Disp: 180 tablet Rfl: 11 Insulin Syringe-Needle U-100 (INSULIN SYRINGE) 1/2 mL 30 x 5/16 syrg Use 1 syringe for each dose 1/day Disp: 100 Syringe Rfl: 11 insulin needles, DISPOSABLE, (PEN NEEDLE) 31 gauge x 5/16 ndle Use one needle per dose. 1 per day. Disp: 100 Each Rfl: 11 No current facility-administered medications for this visit. Review of Systems Constitutional: Negative for chills and fever. HENT: Negative for congestion. Eyes: Negative for double vision. Respiratory: Positive for shortness of breath. Negative for cough and hemoptysis. Cardiovascular: Negative for chest pain, palpitations and PND. Gastrointestinal: Negative for abdominal pain, nausea and vomiting. Genitourinary: Negative for hematuria. Musculoskeletal: Negative for back pain. Neurological: Negative for dizziness and loss of consciousness. Psychiatric/Behavioral: Negative for depression. Objective Physical Exam Constitutional: She is oriented to person, place, and time and well-developed, well-nourished, and in no distress. BP 112/78 Pulse 84 Resp 16 Ht 5' 9 (1.75m) Wt 206 lb (93.4kg) SpO2 98% BMI 30.41 kg/(m2). HENT: Head: Normocephalic and atraumatic. Eyes: Conjunctivae are normal. Cardiovascular: Normal rate, regular rhythm and normal pulses. Pulses: Radial pulses are 2+ on the right side, and 2+ on the left side. Pulmonary/Chest: Effort normal. No stridor. No respiratory distress. She has no rales. Musculoskeletal: She exhibits no edema. Neurological: She is alert and oriented to person, place, and time. Skin: Skin is warm and dry. No pallor. Psychiatric: Affect normal. Assessment and recommendations: 52-year-old female with nonischemic cardiomyopathy, essential hypertension, diabetes, GUN EXAMINER-D system in situ. Device interrogation revealed normal function. There was no evidence of atrial fibrillation. The patient will be enrolled in [facility] for remote monitoring. We'll see her back in office in one year. Referring Provider: TOBIAS MARTINEZ [[id number]] Allergies As of Date: 12/12/2017 Noted Allergy Reaction ADHESIVE TAPE (ROSINS) 03/27/2006 9 - Itching LATEX 01/10/2011 2 - Rash SIMVASTATIN 11/04/2012 14 - Other: See Comments Comments: myalgia Date Reviewed: 12/12/2017 Reviewed by: Lilo Wheeler - Fully Assessed Reason for Visit: New Patient [172] Primary Visit Diagnosis:Essential hypertension, benign [I10] Other Visit Diagnoses:Cardiac resynchronization therapy defibrillator (GUN EXAMINER-D) in place [Z95.810] Cardiomyopathy, nonischemic (HCC) [I42.8] Uncontrolled type 2 diabetes mellitus with diabetic neuropathy, with long-term current use of insulin (HCC) [E11.40, Z79.4, E11.65] Order(s):EKG WITH INTERPRETATION [73725VBC] Order #: [id number]: 1 Prescriptions as of 12/12/2017 Sig: TRIAMCINOLONE ACETONIDE 0.1 %* APPLY TO AFFECTED AREA(S) ON * ASPIRIN 81 MG TABLET,DELAYED * Take 1 tablet by mouth once d* LORATADINE 10 MG TABLET Take 1 tablet by mouth once d* ALOGLIPTIN 25 MG TABLET Take 1 tablet by mouth once d* PRAMIPEXOLE 0.75 MG TABLET Take 1 tablet by mouth daily * MAGNESIUM OXIDE 400 MG TABLET Take 1 tablet by mouth twice * PANTOPRAZOLE 40 MG TABLET,DEL* Take 1 tablet by mouth twice * SERTRALINE 50 MG TABLET Take 1/2 tab once a day orall* OXYBUTYNIN CHLORIDE ER 15 MG * Take 1 tablet by mouth once d* ENALAPRIL MALEATE 2.5 MG TABL* Take 1 tablet by mouth once d* FUROSEMIDE 40 MG TABLET TAKE 1 TABLET DAILY SPIRONOLACTONE 25 MG TABLET TAKE 1 TABLET DAILY ATORVASTATIN 10 MG TABLET TAKE 1 TABLET DAILY CARVEDILOL 25 MG TABLET TAKE 1 TABLET TWICE A DAY INSULIN GLARGINE (U-100) 100 * Inject 21 Units subcutaneousl* METFORMIN 500 MG TABLET Take by mouth. 2 pills in AM* FLUTICASONE 50 MCG/ACTUATION * Use 2 Sprays in each nostril * ONETOUCH ULTRA TEST STRIPS USE TO TEST BLOOD SUGAR THREE* LANCETS Test blood sugar(s) 3 times d* BLOOD-GLUCOSE METER KIT 1 Each as needed. ALBUTEROL SULFATE HFA 90 MCG/* Inhale 2 Puffs as instructed * REPAGLINIDE 2 MG TABLET Take 1-2 tablets each meal Patient taking differently: Take 1-2 tablets three times * INSULIN SYRINGE-NEEDLE U-100 * Use 1 syringe for each dose 1* PEN NEEDLE, DIABETIC 31 GAUGE* Use one needle per dose. 1 pe* Problem List As Of Date 12/12/2017 Noted Resolved Pure hypercholesterolemia [E78.00] Priority: A Diabetes mellitus (HCC) [E11.9] 08/16/2016 Priority: Moderate More... Essential hypertension, benign [I10] Priority: B Unspecified disorder of joint [719.9] 11/23/2016 More... 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 Cardiomyopathy, nonischemic [I42.8] INVALID FOR* Abnormality of gait [R26.9] INVALID FOR* DM (diabetes mellitus), type 2, uncontrolled w/*INVALID FOR*12/21/2015 Chronic nausea [R11.0] INVALID FOR*09/01/2015 Ganglion cyst of right foot [M67.471] INVALID FOR* ICD (implantable cardioverter-defibrillator) in*INVALID FOR*08/16/2016 Biventricular ICD (implantable cardioverter-def*INVALID FOR* Uncontrolled type 2 diabetes mellitus with diab*INVALID FOR* Neuropathy (HCC) [G62.9] INVALID FOR*08/16/2016 Restless leg syndrome [G25.81] INVALID FOR* Peroneal tendinitis [M76.70] INVALID FOR* Pain in joint, ankle and foot [M25.579] INVALID FOR* Visit Notes: >> Ludy Beavers Becky December 12, 2017 2:37 PM Status: Signed Patient denies any cardiac complaints today. Ludy JUNIOR Beavers Disposition: Return in about 1 year (around 12/12/2018) for With the nurse practitioner. Follow-up and Disposition History Recorded Encounter Status:Closed by LILO WHEELER MD on 12/12/17 OBSOLETE Observed: 12/12/2017 Status: COMPLETED Source: [facility] 1:00 PM CLINIC OTHER CAMPUS REPOSITORY Procedure ([facility]) MICHELLE THOMAS ([id number]) 1965 F Date Time Provider Department 12/12/17 1:00 PM [facility] During your visit today, we recorded the following information about you: Referring Provider: LILO WHEELER [[id number]] Allergies As of Date: 12/12/2017 Noted Allergy Reaction ADHESIVE TAPE (ROSINS) 03/27/2006 9 - Itching LATEX 01/10/2011 2 - Rash SIMVASTATIN 11/04/2012 14 - Other: See Comments Comments: myalgia Date Reviewed: 10/30/2017 Reviewed by: Julee Elmore (Pa) - Fully Assessed Reason for Visit: BIV [Other] Visit Diagnosis:Cardiomyopathy, nonischemic (HCC) [I42.8] Prescriptions as of 12/12/2017 Sig: TRIAMCINOLONE ACETONIDE 0.1 %* APPLY TO AFFECTED AREA(S) ON * ASPIRIN 81 MG TABLET,DELAYED * Take 1 tablet by mouth once d* LORATADINE 10 MG TABLET Take 1 tablet by mouth once d* ALOGLIPTIN 25 MG TABLET Take 1 tablet by mouth once d* PRAMIPEXOLE 0.75 MG TABLET Take 1 tablet by mouth daily * MAGNESIUM OXIDE 400 MG TABLET Take 1 tablet by mouth twice * PANTOPRAZOLE 40 MG TABLET,DEL* Take 1 tablet by mouth twice * SERTRALINE 50 MG TABLET Take 1/2 tab once a day orall* OXYBUTYNIN CHLORIDE ER 15 MG * Take 1 tablet by mouth once d* ENALAPRIL MALEATE 2.5 MG TABL* Take 1 tablet by mouth once d* FUROSEMIDE 40 MG TABLET TAKE 1 TABLET DAILY SPIRONOLACTONE 25 MG TABLET TAKE 1 TABLET DAILY ATORVASTATIN 10 MG TABLET TAKE 1 TABLET DAILY CARVEDILOL 25 MG TABLET TAKE 1 TABLET TWICE A DAY INSULIN GLARGINE (U-100) 100 * Inject 21 Units subcutaneousl* METFORMIN 500 MG TABLET Take by mouth. 2 pills in AM* FLUTICASONE 50 MCG/ACTUATION * Use 2 Sprays in each nostril * ONETOUCH ULTRA TEST STRIPS USE TO TEST BLOOD SUGAR THREE* LANCETS Test blood sugar(s) 3 times d* BLOOD-GLUCOSE METER KIT 1 Each as needed. ALBUTEROL SULFATE HFA 90 MCG/* Inhale 2 Puffs as instructed * REPAGLINIDE 2 MG TABLET Take 1-2 tablets each meal Patient taking differently: Take 1-2 tablets three times * INSULIN SYRINGE-NEEDLE U-100 * Use 1 syringe for each dose 1* PEN NEEDLE, DIABETIC 31 GAUGE* Use one needle per dose. 1 pe* Problem List As Of Date 12/12/2017 Noted Resolved Pure hypercholesterolemia [E78.00] Priority: A Diabetes mellitus (HCC) [E11.9] 08/16/2016 Priority: Moderate More... Essential hypertension, benign [I10] Priority: B Unspecified disorder of joint [719.9] 11/23/2016 More... 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 Cardiomyopathy, nonischemic [I42.8] INVALID FOR* Abnormality of gait [R26.9] INVALID FOR* DM (diabetes mellitus), type 2, uncontrolled w/*INVALID FOR*12/21/2015 Chronic nausea [R11.0] INVALID FOR*09/01/2015 Ganglion cyst of right foot [M67.471] INVALID FOR* ICD (implantable cardioverter-defibrillator) in*INVALID FOR*08/16/2016 Biventricular ICD (implantable cardioverter-def*INVALID FOR* Uncontrolled type 2 diabetes mellitus with diab*INVALID FOR* Neuropathy (HCC) [G62.9] INVALID FOR*08/16/2016 Restless leg syndrome [G25.81] INVALID FOR* Peroneal tendinitis [M76.70] INVALID FOR* Pain in joint, ankle and foot [M25.579] INVALID FOR* Encounter Status:Closed by GLENDY PAIGE on 12/12/17 [employer] Observed: 12/04/2017 Status: COMPLETED Source: [facility] 12:00 AM CLINIC MAIN CAMPUS REPOSITORY Letter Text Mello Ding MD [facility] Michelle Thomas [address] [facility] [address] Clinic #: [id number] 12/04/2017 Dear Ms. Thomas, I have received the results of your recent tests. The results of your Mammogram tests were either normal or within the acceptable range. Repeat in 1 year. We can discuss this at your next visit. Please do not hesitate to contact me with any questions. Sincerely, Mello Ding MD [facility] Department electronically signed to expedite mailing [employer] Observed: 12/03/2017 Status: COMPLETED Source: [facility] 9:57 AM [facility] [place] REPOSITORY O ID: [id number] Author: Mammography Coordinator Service: (none) Author Type: Physician Type: Letter Filed: 12/04/2017 11:31 PM Note Text: December 03, 2017 PID: [id number] Michelle Thomas [address] [place] [address] Dear Ms. Thomas, We are pleased to inform you that the results of your recent breast imaging exam on 12/03/2017 are normal. Early detection of cancer is very important. We also understand recommendations regarding breast cancer screening are controversial. Please discuss with your primary care provider which strategy is best for you and whether a mammogram is right for you. Your imaging studies and report will be kept on file at [facility] as part of your permanent medical record and are available for your continuing care. Thank you for allowing us to help in meeting your health care needs. Sincerely, Dr. Guido Interpreting Radiologist [facility] (Normal over 40) [facility] SCREENING Observed: 12/03/2017 Status: F Source: [facility] 9:26 AM [facility] REPOSITORY * * *Final Report* * * DATE OF EXAM: Dec 03 2017 9:26AM WO [id number] - [facility] SCREENING / PROCEDURE REASON: Encounter for screening mammogram for malignant neoplasm of breast * * * * Physician Interpretation * * * * RESULT: #[id number] - [facility] SCREENING BILATERAL DIGITAL SCREENING MAMMOGRAM WITH CAD: 12/03/2017 HISTORY: Encounter For Screening Mammogram For Malignant Neoplasm Of Breast /Screening Mammogram - patient reports NO breast symptoms /Priors available for comparison. RESULT: TECHNIQUE: The study was acquired using full field digital technology and interpreted from soft copy. Current study was also evaluated with a Computer Aided Detection (CAD). Comparison is made to exams dated: 08/08/2016 mammogram, 06/27/2015 mammogram, and 06/02/2014 mammogram - [facility]. The tissue of both breasts is predominantly fatty. Cardiac device partially obscures visualization of the left axilla. No significant masses, calcifications, or other findings are seen in either breast. There has been no significant interval change. IMPRESSION: BENIGN FINDING There is no mammographic evidence of malignancy.A 1 year screening mammogram is recommended. The exam was reviewed by a staff physician. Tess North M.D. pt,as/sierra:12/03/2017 09:57:41 Sole Polisher: Nata ANG)(Shanell), [facility] letter sent: Normal over 40 Mammogram BI-RADS: 2 Benign finding Quality Assurance Supervisor Trim: Sierra Transcribe Date/Time: Dec 03 2017 9:11A Dictated by: TAMMY NORTH MD This examination was interpreted and the report reviewed and electronically signed by: TESS GUIDO MD on Dec 03 2017 9:57AM EST [id number] Observed: 11/15/2017 Status: COMPLETED Source: [facility] 8:00 AM [facility] REPOSITORY [facility] MICHELLE THOMAS ([id number]) 1965 F Date Time Provider Department 11/15/17 8:00 AM MELLO DING [facility] During your visit today, we recorded the following information about you: Pulse Respiration Blood pressure Weight 76/minute 16/minute 112/64 92.5 kg Mello Ding 11/15/2017 8:39 AM Signed Transitional Care Management Progress Note The patients TCM visit was performed within the 7 days of discharge. Patient's Date of discharge: 11/08/17 Date of initial coordinator contact after discharge: 11/11/17 Discharge diagnosis: Chest pain, DM, HTN, RLS, Hyperlipidemia Medication review completed Yes Anu Casey [facility] FOLLOW UP: Reason for visit: chest pain Which facility: [facility] Date of visit: 11/07/17 Discharge: 11/08/17 Diagnosis: chest pain, diabetes, HTN, RLS, hyperlipidemia Current symptoms: still with chest pain but is improving Trying to keep stress level down and take is easier at work. Pt is still wearing an event monitor until next Saturday. She has a device check at the end of this month. Blood sugar was 113 this morning.? Provider Documentation: In follow-up of hospitalization, Michelle Thomas is a 52 year old female with the chief complaint of chest pain. I have reviewed the patient?s last hospital course including diagnostic testing performed during this hospitalization, their discharge medications, and my assessment and plan with the patient and any family members present at today?s visit. Admitted to [facility]. acs ruled out. Had chest pain with left shoulder discomfort. Currently has a [address]. Chest pain worsened with palpitation. Labs, ech and chest xray were negative. Serial enzymes where negative. Had stress test that was negative for ischemia. Cholesterol was 112 with ldl o 48. Echo was unchanged. Some irritation from her leads. Suggested she contact cardiology. She does do a lot of lifting. She has occasional myalgias in the chest depending on what she is doing. Admits to having a lot of stress. No med changes. Uses tylenol prn for her chest wall pain. No new edema. No shortness of breath. Her feet looks broken out recently. No changes. No itching. Still seeing endo. Sugars have been up and down. Sees [facility] in December. She sees eps specialist at the end of this month. Has increasing anxiety issues. Has it constantly. Discussed risks and benefits of meds. MEDICATIONS: Current Outpatient Prescriptions: Pramipexole 0.75 mg tablet TAKE 1 TABLET BY MOUTH AT BEDTIME oxybutynin ER (DITROPAN XL) 15 mg 24 hr Extended Rel Tab Take 1 tablet by mouth once daily. enalapril (VASOTEC) 2.5 mg tablet Take 1 tablet by mouth once daily. furosemide (LASIX) 40 mg tablet TAKE 1 TABLET DAILY spironolactone (ALDACTONE) 25 mg tablet TAKE 1 TABLET DAILY atorvastatin (LIPITOR) 10 mg tablet TAKE 1 TABLET DAILY carvedilol (COREG) 25 mg tablet TAKE 1 TABLET TWICE A DAY pantoprazole DR (PROTONIX) 40 mg tablet TAKE 1 TABLET BY MOUTH TWICE DAILY triamcinolone acetonide (KENALOG) 0.1 % ointment Apply to affected area on legs twice daily as needed. Use 2 weeks on 1 week off. Not for face, armpits or groin insulin glargine (BASAGLAR KWIKPEN) 100 unit/mL (3 mL) inpn Inject 21 Units subcutaneously every evening. metFORMIN (GLUCOPHAGE) 500 mg tablet Take by mouth. 2 pills in AM, 1 pill with lunch, and 2 pills with supper aspirin, enteric coated (ECOTRIN LOW STRENGTH) 81 mg EC tablet Take 1 tablet by mouth once daily. loratadine (CLARITIN) 10 mg tablet Take 1 tablet by mouth once daily. alogliptin 25 mg tab Take 1 tablet by mouth once daily. magnesium oxide (MAG-OX) 400 mg tablet Take 1 tablet by mouth twice daily. fluticasone (FLONASE) 50 mcg/actuation nasal spray Use 2 Sprays in each nostril once daily. ONETOUCH ULTRA TEST test strip USE TO TEST BLOOD SUGAR THREE TIMES A DAY Lancets lancets Test blood sugar(s) 3 times daily. Blood-Glucose Meter (TSSI SystemsSTYLE SYSTEM KIT) monitoring kit 1 Each as needed. albuterol HFA (PROAIR HFA) 90 mcg/actuation inhaler Inhale 2 Puffs as instructed every 4 hours as needed. repaglinide (PRANDIN) 2 mg tablet Take 1-2 tablets each meal (Patient taking differently: Take 1-2 tablets three times daily before meal) Insulin Syringe-Needle U-100 (INSULIN SYRINGE) 1/2 mL 30 x 5/16 syrg Use 1 syringe for each dose 1/day insulin needles, DISPOSABLE, (PEN NEEDLE) 31 gauge x 5/16 ndle Use one needle per dose. 1 per day. No current facility-administered medications for this visit. ALLERGIES: ALLERGIES Allergen Reactions - Adhesive Tape (Natty* Itching - Latex Rash - Simvastatin Other: See Comments myalgia PAST MEDICAL HISTORY Diagnosis Date - Anxiety disorder in conditions classified elsewhere - Arthritis left knee with spur - Cardiomyopathy, nonischemic (HCC) 04/2013 - Degenerative joint disease involving multiple joints shoulders, right knee - Essential hypertension, benign - Family history of colon cancer 5y screening cycle - GERD (gastroesophageal reflux disease) - History of placement of internal cardiac defibrillator 09/03/2013 - Neuropathy (HCC) 02/09/2016 - Obesity, unspecified - Pure hypercholesterolemia - Restless leg syndrome 02/09/2016 - Snoring - Type II or unspecified type diabetes mellitus without mention of complication, not stated as uncontrolled - Vitamin D deficiency PAST SURGICAL HISTORY Procedure Laterality Date - APPENDECTOMY 2006 - COLONOSCOP W/ OR W/O [facility] SPEC 10/08/06 - COLONOSCOP W/ OR W/O [facility] SPEC 09/18/2011 Colonoscopy - COLONOSCOP W/ OR W/O [facility] SPEC 09/27/2016 Colonoscopy - DESTR LES BENIGN/ PREMAL 02/06/12 Ablation anal condyomata - EGD 09-01-15 - INSERT DUAL CHAMBER ICD 09/03/13 pacemaker/defibulator - KNEE SCOPE,DIAGNOSTIC right - LAPAROSCOPY, SURGICAL, APPENDECTOMY 10/22/06 - PAST SURGICAL HISTORY OF Right - ganglion cyst - PAST SURGICAL HISTORY OF Left 2015 cyst removed from left foot - TONSILLECTOMY AND ADENOIDECTOMY HX age 6 - TOTAL ABDOM HYSTERECTOMY 2005 menorrhagia/dysmenorrhea (negative for cancer) -- [place] FAMILY HISTORY Problem Relation Age of Onset - Colon Cancer Father in early 50s - Heart Father 55 [place] - Breast Cancer Mother in 50s - Diabetes Mother - Coronary Artery Disease Mother age early-mid 60's - Colon Cancer Paternal Grandmother - epilepsy [OTHER] Son - Breast Cancer Daughter - heart murmur [OTHER] Daughter Social History Marital status: Spouse name: Years of education: Number of children: 2 Occupational History Occupation Employer Comment [employer]* Social History Main Topics Smoking status: Never Smoker Smokeless tobacco: Never Used Alcohol use: No Comment: seldom Drug use: No Sexual activity: Not Currently Partners with: Male Reviewed current medications, allergies, past medical history, surgical history, family history and social history today. REVIEW OF SYSTEMS All other reviewed and negative other than HPI. HEALTH MAINTENANCE: Reviewed health maintenance issues today and recommended the following in detail. DIABETIC FOOT EXAM due on 05/11/2017 DILATED RETINAL EXAM due on 07/16/2017 MAMMOGRAM due on 08/08/2017 VITALS: BP 112/64 Pulse 76 Resp 16 Wt 92.5 kg (204 lb) BMI 30.13 kg/m? Last 4 Encounter Wt Readings: Date: Wt: 11/15/2017 92.5 kg (204 lb) 10/24/2017 94.1 kg (207 lb 8 oz) 08/07/2017 89.4 kg (197 lb) 04/26/2017 89.4 kg (197 lb 1.6 oz) PHYSICAL EXAMINATION: General appearance: Well appearing, alert, in no acute distress, well-hydrated, well nourished. Skin: Skin color, texture, turgor normal, no suspicious rashes or lesions Head: Normocephalic, no masses, lesions, tenderness or abnormalities Neck: Supple, no adenopathy; thyroid symmetric, normal size, no bruits Lungs: Lungs clear to auscultation. No wheezing, rhonchi, rales Heart: RRR without murmur, gallop, or rubs. No ectopy Abdomen: Normal abdominal exam, Abdomen soft, non-tender. Bowel sounds normal. No masses, organomegaly Extremities: No deformities, edema, skin discoloration, clubbing or cyanosis. Good capillary refill. Musculoskeletal: No joint swelling, deformity, or tenderness ASSESSMENT/PLAN: 1. Chest wall pain - ICD9: 786.52, ICD10: R07.89 - Call if worsens. See cardiology. 2. History of environmental allergies - ICD9: V15.09, ICD10: Z91.09 - LORATADINE 10 MG TABLET 3. Essential hypertension, benign - ICD9: 401.1, ICD10: I10 - good control - Continue current medication(s) - Goal of BP <140/90 - MAGNESIUM OXIDE 400 MG TABLET 4. Uncontrolled type 2 diabetes mellitus with diabetic neuropathy, without long-term current use of insulin (HCC) - ICD9: 250.62, 357.2, ICD10: E11.40, E11.65 Controlled. - Continue current medications - ALOGLIPTIN 25 MG TABLET 5. Restless leg syndrome - ICD9: 333.94, ICD10: G25.81 - PRAMIPEXOLE 0.75 MG TABLET 6. Pure hypercholesterolemia - ICD9: 272.0, ICD10: E78.00 - good control - Continue current medication. 7. Screening breast examination - ICD9: V76.10, ICD10: Z12.31 - Follow up for annual exam in one year. - [facility] SCREENING 8. Coronary artery disease involving [place] heart without angina pectoris, unspecified vessel or lesion type - ICD9: 414.01, ICD10: I25.10 - call if any changes. - ASPIRIN 81 MG TABLET,DELAYED RELEASE 9. GERD without esophagitis - ICD9: 530.81, ICD10: K21.9 - PANTOPRAZOLE 40 MG TABLET,DELAYED RELEASE 10. Anxiety - start zoloft Discussed risks and benefits of new medication with the patient. Advised them to call if any side effects or questions. rto in four weeks Mello Ding MD Referring Provider: SELF [200] Allergies As of Date: 11/15/2017 Noted Allergy Reaction ADHESIVE TAPE (ROSINS) 03/27/2006 9 - Itching LATEX 01/10/2011 2 - Rash SIMVASTATIN 11/04/2012 14 - Other: See Comments Comments: myalgia Date Reviewed: 10/30/2017 Reviewed by: Julee Elmore (Stacy) - Fully Assessed Reason for Visit: Hospital Follow Up [177] Cmt: TCM Primary Visit Diagnosis:Chest wall pain [R07.89] Other Visit Diagnoses:History of environmental allergies [Z91.09] Essential hypertension, benign [I10] Uncontrolled type 2 diabetes mellitus with diabetic neuropathy, without long-term current use of insulin (HCC) [E11.40, E11.65] Restless leg syndrome [G25.81] Pure hypercholesterolemia [E78.00] Screening breast examination [Z12.31] Coronary artery disease involving turtle mountain heart without angina pectoris, unspecified vessel or lesion type [I25.10] GERD without esophagitis [K21.9] Anxiety [F41.9] Order(s):aspirin, enteric coated (ECOTRIN LOW STRENGTH) 81 mg EC tabletTake 1 tablet by mouth once daily.Disp: 30 tabletRfl: 11 loratadine (CLARITIN) 10 mg tabletTake 1 tablet by mouth once daily.Disp: 30 tabletRfl: 11 alogliptin 25 mg tabTake 1 tablet by mouth once daily.Disp: 30 tabletRfl: 11 Pramipexole 0.75 mg tabletTake 1 tablet by mouth daily at bedtime.Disp: 30 tabletRfl: 5 magnesium oxide (MAG-OX) 400 mg tabletTake 1 tablet by mouth twice daily.Disp: 60 tabletRfl: [address] (PROTONIX) 40 mg tabletTake 1 tablet by mouth twice daily.Disp: 56 tabletRfl: 3 [facility] SCREENING [[id number]] Order #: [id number] FUTURE sertraline (ZOLOFT) 50 mg tabletTake 1/2 tab once a day orally for one week then 1 tab once a dayDisp: 30 tabletRfl: 5 Prescriptions as of 11/15/2017 Sig: ASPIRIN 81 MG TABLET,DELAYED * Take 1 tablet by mouth once d* LORATADINE 10 MG TABLET Take 1 tablet by mouth once d* ALOGLIPTIN 25 MG TABLET Take 1 tablet by mouth once d* PRAMIPEXOLE 0.75 MG TABLET Take 1 tablet by mouth daily * MAGNESIUM OXIDE 400 MG TABLET Take 1 tablet by mouth twice * PANTOPRAZOLE 40 MG TABLET,DEL* Take 1 tablet by mouth twice * OXYBUTYNIN CHLORIDE ER 15 MG * Take 1 tablet by mouth once d* ENALAPRIL MALEATE 2.5 MG TABL* Take 1 tablet by mouth once d* FUROSEMIDE 40 MG TABLET TAKE 1 TABLET DAILY SPIRONOLACTONE 25 MG TABLET TAKE 1 TABLET DAILY ATORVASTATIN 10 MG TABLET TAKE 1 TABLET DAILY CARVEDILOL 25 MG TABLET TAKE 1 TABLET TWICE A DAY TRIAMCINOLONE ACETONIDE 0.1 %* Apply to affected area on leg* INSULIN GLARGINE (U-100) 100 * Inject 21 Units subcutaneousl* METFORMIN 500 MG TABLET Take by mouth. 2 pills in AM* FLUTICASONE 50 MCG/ACTUATION * Use 2 Sprays in each nostril * ONETOUCH ULTRA TEST STRIPS USE TO TEST BLOOD SUGAR THREE* LANCETS Test blood sugar(s) 3 times d* BLOOD-GLUCOSE METER KIT 1 Each as needed. ALBUTEROL SULFATE HFA 90 MCG/* Inhale 2 Puffs as instructed * REPAGLINIDE 2 MG TABLET Take 1-2 tablets each meal Patient taking differently: Take 1-2 tablets three times * INSULIN SYRINGE-NEEDLE U-100 * Use 1 syringe for each dose 1* PEN NEEDLE, DIABETIC 31 GAUGE* Use one needle per dose. 1 pe* SERTRALINE 50 MG TABLET Take 1/2 tab once a day orall* Problem List As Of Date 11/15/2017 Noted Resolved Pure hypercholesterolemia [E78.00] Priority: A Diabetes mellitus (HCC) [E11.9] 08/16/2016 Priority: Moderate More... Essential hypertension, benign [I10] Priority: B Unspecified disorder of joint [719.9] 11/23/2016 More... 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 Cardiomyopathy, nonischemic [I42.8] INVALID FOR* Abnormality of gait [R26.9] INVALID FOR* DM (diabetes mellitus), type 2, uncontrolled w/*INVALID FOR*12/21/2015 Chronic nausea [R11.0] INVALID FOR*09/01/2015 Ganglion cyst of right foot [M67.471] INVALID FOR* ICD (implantable cardioverter-defibrillator) in*INVALID FOR*08/16/2016 Biventricular ICD (implantable cardioverter-def*INVALID FOR* Uncontrolled type 2 diabetes mellitus with diab*INVALID FOR* Neuropathy (HCC) [G62.9] INVALID FOR*08/16/2016 Restless leg syndrome [G25.81] INVALID FOR* Peroneal tendinitis [M76.70] INVALID FOR* Pain in joint, ankle and foot [M25.579] INVALID FOR* Prescriptions ordered this encounter Disp Refills Start End ASPIRIN 81 MG TABLET,DELAYED RELEASE 30 t* 11 11/15/2017 Route: ORAL Sig: Take 1 tablet by mouth once daily. LORATADINE 10 MG TABLET 30 t* 11 11/15/2017 Route: ORAL Sig: Take 1 tablet by mouth once daily. ALOGLIPTIN 25 MG TABLET 30 t* 11 11/15/2017 Route: ORAL Sig: Take 1 tablet by mouth once daily. PRAMIPEXOLE 0.75 MG TABLET 30 t* 5 11/15/2017 Route: ORAL Sig: Take 1 tablet by mouth daily at bedtime. MAGNESIUM OXIDE 400 MG TABLET 60 t* 11 11/15/2017 Route: ORAL Sig: Take 1 tablet by mouth twice daily. PANTOPRAZOLE 40 MG TABLET,DELAYED RE* 56 t* 3 11/15/2017 Route: ORAL Sig: Take 1 tablet by mouth twice daily. SERTRALINE 50 MG TABLET 30 t* 5 11/15/2017 Sig: Take 1/2 tab once a day orally for one week then 1 tab once a day Medications Discontinued During This Encounter aspirin, enteric coated (ECOTRIN LOW* 30 t* 11 03/28/2017 11/15/2017 Route: ORAL Sig: Take 1 tablet by mouth once daily. Disc: Reason for discontinue is not on file. loratadine (CLARITIN) 10 mg tablet 30 t* 11 03/28/2017 11/15/2017 Cmt: Maximum Refills Reached Route: ORAL Sig: Take 1 tablet by mouth once daily. Disc: Reason for discontinue is not on file. alogliptin 25 mg tab 30 t* 11 03/28/2017 11/15/2017 Route: ORAL Sig: Take 1 tablet by mouth once daily. Disc: Reason for discontinue is not on file. Pramipexole 0.75 mg tablet 30 t* 5 09/12/2017 11/15/2017 Cmt: Maximum Refills Reached Sig: TAKE 1 TABLET BY MOUTH AT BEDTIME Disc: Reason for discontinue is not on file. magnesium oxide (MAG-OX) 400 mg tabl* 60 t* 11 03/28/2017 11/15/2017 Route: ORAL Sig: Take 1 tablet by mouth twice daily. Disc: Reason for discontinue is not on file. pantoprazole DR (PROTONIX) 40 mg tab* 56 t* 3 06/21/2017 11/15/2017 Cmt: Maximum Refills Reached Sig: TAKE 1 TABLET BY MOUTH TWICE DAILY Disc: Reason for discontinue is not on file. Disposition: Return in about 1 month (around 12/16/2017). Follow-up and Disposition History Recorded Encounter Status:Closed by MELLO DING MD on 11/15/17 PROGRESS Observed: 11/15/2017 Status: COMPLETED Source: [place] 7:52 AM [facility] REPOSITORY HNO ID: [id number] Author: Mello Ding Service: (none) Author Type: Physician Type: Progress Notes Filed: 11/15/2017 8:39 AM Note Text: Transitional Care Management Progress Note The patients TCM visit was performed within the 7 days of discharge. Patient's Date of discharge: 11/08/17 Date of initial coordinator contact after discharge: 11/11/17 Discharge diagnosis: Chest pain, DM, HTN, RLS, Hyperlipidemia Medication review completed Yes Anu Casey [facility] FOLLOW UP: Reason for visit: chest pain Which facility: [facility] Date of visit: 11/07/17 Discharge: 11/08/17 Diagnosis: chest pain, diabetes, HTN, RLS, hyperlipidemia Current symptoms: still with chest pain but is improving Trying to keep stress level down and take is easier at work. Pt is still wearing an event monitor until next Saturday. She has a device check at the end of this month. Blood sugar was 113 this morning.? Provider Documentation: In follow-up of hospitalization, Michelle Thomas is a 52 year old female with the chief complaint of chest pain. I have reviewed the patient?s last hospital course including diagnostic testing performed during this hospitalization, their discharge medications, and my assessment and plan with the patient and any family members present at today?s visit. Admitted to [facility]. acs ruled out. Had chest pain with left shoulder discomfort. Currently has a [address]. Chest pain worsened with palpitation. Labs, ech and chest xray were negative. Serial enzymes where negative. Had stress test that was negative for ischemia. Cholesterol was 112 with ldl o 48. Echo was unchanged. Some irritation from her leads. Suggested she contact cardiology. She does do a lot of lifting. She has occasional myalgias in the chest depending on what she is doing. Admits to having a lot of stress. No med changes. Uses tylenol prn for her chest wall pain. No new edema. No shortness of breath. Her feet looks broken out recently. No changes. No itching. Still seeing endo. Sugars have been up and down. Sees [facility] in December. She sees eps specialist at the end of this month. Has increasing anxiety issues. Has it constantly. Discussed risks and benefits of meds. MEDICATIONS: Current Outpatient Prescriptions: Pramipexole 0.75 mg tablet TAKE 1 TABLET BY MOUTH AT BEDTIME oxybutynin ER (DITROPAN XL) 15 mg 24 hr Extended Rel Tab Take 1 tablet by mouth once daily. enalapril (VASOTEC) 2.5 mg tablet Take 1 tablet by mouth once daily. furosemide (LASIX) 40 mg tablet TAKE 1 TABLET DAILY spironolactone (ALDACTONE) 25 mg tablet TAKE 1 TABLET DAILY atorvastatin (LIPITOR) 10 mg tablet TAKE 1 TABLET DAILY carvedilol (COREG) 25 mg tablet TAKE 1 TABLET TWICE A DAY pantoprazole DR (PROTONIX) 40 mg tablet TAKE 1 TABLET BY MOUTH TWICE DAILY triamcinolone acetonide (KENALOG) 0.1 % ointment Apply to affected area on legs twice daily as needed. Use 2 weeks on 1 week off. Not for face, armpits or groin insulin glargine (BASAGLAR KWIKPEN) 100 unit/mL (3 mL) inpn Inject 21 Units subcutaneously every evening. metFORMIN (GLUCOPHAGE) 500 mg tablet Take by mouth. 2 pills in AM, 1 pill with lunch, and 2 pills with supper aspirin, enteric coated (ECOTRIN LOW STRENGTH) 81 mg EC tablet Take 1 tablet by mouth once daily. loratadine (CLARITIN) 10 mg tablet Take 1 tablet by mouth once daily. alogliptin 25 mg tab Take 1 tablet by mouth once daily. magnesium oxide (MAG-OX) 400 mg tablet Take 1 tablet by mouth twice daily. fluticasone (FLONASE) 50 mcg/actuation nasal spray Use 2 Sprays in each nostril once daily. ONETOUCH ULTRA TEST test strip USE TO TEST BLOOD SUGAR THREE TIMES A DAY Lancets lancets Test blood sugar(s) 3 times daily. Blood-Glucose Meter (FREESTYLE SYSTEM KIT) monitoring kit 1 Each as needed. albuterol HFA (PROAIR HFA) 90 mcg/actuation inhaler Inhale 2 Puffs as instructed every 4 hours as needed. repaglinide (PRANDIN) 2 mg tablet Take 1-2 tablets each meal (Patient taking differently: Take 1-2 tablets three times daily before meal) Insulin Syringe-Needle U-100 (INSULIN SYRINGE) 1/2 mL 30 x 5/16 syrg Use 1 syringe for each dose 1/day insulin needles, DISPOSABLE, (PEN NEEDLE) 31 gauge x 5/16 ndle Use one needle per dose. 1 per day. No current facility-administered medications for this visit. ALLERGIES: ALLERGIES Allergen Reactions - Adhesive Tape (Natty* Itching - Latex Rash - Simvastatin Other: See Comments myalgia PAST MEDICAL HISTORY Diagnosis Date - Anxiety disorder in conditions classified elsewhere - Arthritis left knee with spur - Cardiomyopathy, nonischemic (HCC) 04/2013 - Degenerative joint disease involving multiple joints shoulders, right knee - Essential hypertension, benign - Family history of colon cancer 5y screening cycle - GERD (gastroesophageal reflux disease) - History of placement of internal cardiac defibrillator 09/03/2013 - Neuropathy (HCC) 02/09/2016 - Obesity, unspecified - Pure hypercholesterolemia - Restless leg syndrome 02/09/2016 - Snoring - Type II or unspecified type diabetes mellitus without mention of complication, not stated as uncontrolled - Vitamin D deficiency PAST SURGICAL HISTORY Procedure Laterality Date - APPENDECTOMY 2006 - COLONOSCOP W/ OR W/O [facility] SPEC 10/08/06 - COLONOSCOP W/ OR W/O [facility] SPEC 09/18/2011 Colonoscopy - COLONOSCOP W/ OR W/O [facility] SPEC 09/27/2016 Colonoscopy - DESTR LES BENIGN/ PREMAL 02/06/12 Ablation anal condyomata - EGD 09-01-15 - INSERT DUAL CHAMBER ICD 09/03/13 pacemaker/defibulator - KNEE SCOPE,DIAGNOSTIC right - LAPAROSCOPY, SURGICAL, APPENDECTOMY 10/22/06 - PAST SURGICAL HISTORY OF Right -14 ganglion cyst - PAST SURGICAL HISTORY OF Left 2016 cyst removed from left foot - TONSILLECTOMY AND ADENOIDECTOMY HX age 6 - TOTAL ABDOM HYSTERECTOMY 2005 menorrhagia/dysmenorrhea (negative for cancer) -- [place] FAMILY HISTORY Problem Relation Age of Onset - Colon Cancer Father in early 50s - Heart Father 55 [place] - Breast Cancer Mother in 50s - Diabetes Mother - Coronary Artery Disease Mother age early-mid 60's - Colon Cancer Paternal Grandmother - epilepsy [OTHER] Son - Breast Cancer Daughter - heart murmur [OTHER] Daughter Social History Marital status: Spouse name: Years of education: Number of children: 2 Occupational History Occupation Employer Comment [employer]* Social History Main Topics Smoking status: Never Smoker Smokeless tobacco: Never Used Alcohol use: No Comment: seldom Drug use: No Sexual activity: Not Currently Partners with: Male Reviewed current medications, allergies, past medical history, surgical history, family history and social history today. REVIEW OF SYSTEMS All other reviewed and negative other than HPI. HEALTH MAINTENANCE: Reviewed health maintenance issues today and recommended the following in detail. DIABETIC FOOT EXAM due on 05/11/2017 DILATED RETINAL EXAM due on 07/16/2017 MAMMOGRAM due on 08/08/2017 VITALS: BP 112/64 Pulse 76 Resp 16 Wt 92.5 kg (204 lb) BMI 30.13 kg/m? Last 4 Encounter Wt Readings: Date: Wt: 11/15/2017 92.5 kg (204 lb) 10/24/2017 94.1 kg (207 lb 8 oz) 08/07/2017 89.4 kg (197 lb) 04/26/2017 89.4 kg (197 lb 1.6 oz) PHYSICAL EXAMINATION: General appearance: Well appearing, alert, in no acute distress, well-hydrated, well nourished. Skin: Skin color, texture, turgor normal, no suspicious rashes or lesions Head: Normocephalic, no masses, lesions, tenderness or abnormalities Neck: Supple, no adenopathy; thyroid symmetric, normal size, no bruits Lungs: Lungs clear to auscultation. No wheezing, rhonchi, rales Heart: RRR without murmur, gallop, or rubs. No ectopy Abdomen: Normal abdominal exam, Abdomen soft, non-tender. Bowel sounds normal. No masses, organomegaly Extremities: No deformities, edema, skin discoloration, clubbing or cyanosis. Good capillary refill. Musculoskeletal: No joint swelling, deformity, or tenderness ASSESSMENT/PLAN: 1. Chest wall pain - ICD9: 786.52, ICD10: R07.89 - Call if worsens. See cardiology. 2. History of environmental allergies - ICD9: V15.09, ICD10: Z91.09 - LORATADINE 10 MG TABLET 3. Essential hypertension, benign - ICD9: 401.1, ICD10: I10 - good control - Continue current medication(s) - Goal of BP <140/90 - MAGNESIUM OXIDE 400 MG TABLET 4. Uncontrolled type 2 diabetes mellitus with diabetic neuropathy, without long-term current use of insulin (HCC) - ICD9: 250.62, 357.2, ICD10: E11.40, E11.65 Controlled. - Continue current medications - ALOGLIPTIN 25 MG TABLET 5. Restless leg syndrome - ICD9: 333.94, ICD10: G25.81 - PRAMIPEXOLE 0.75 MG TABLET 6. Pure hypercholesterolemia - ICD9: 272.0, ICD10: E78.00 - good control - Continue current medication. 7. Screening breast examination - ICD9: V76.10, ICD10: Z12.31 - Follow up for annual exam in one year. - [facility] SCREENING 8. Coronary artery disease involving turtle mountain heart without angina pectoris, unspecified vessel or lesion type - ICD9: 414.01, ICD10: I25.10 - call if any changes. - ASPIRIN 81 MG TABLET,DELAYED RELEASE 9. GERD without esophagitis - ICD9: 530.81, ICD10: K21.9 - PANTOPRAZOLE 40 MG TABLET,DELAYED RELEASE 10. Anxiety - start zoloft Discussed risks and benefits of new medication with the patient. Advised them to call if any side effects or questions. rto in four weeks Mello Ding MD CNCO Observed: 11/15/2017 Status: COMPLETED Source: [place] 12:00 AM [facility] REPOSITORY Letter Text . [facility] AUTHORIZATION FOR THE RELEASE OF MEDICAL INFORMATION FROM OTHER HEALTHCARE FACILITIES [facility] [address] [place], [place] [address] Name: Michlele Thomas Date of : 1965 [address] [facility] [address] (home) [phone] (work) Reason for Disclosure: Continuity of Care. Release Information From: Name of Provider/Facility: [facility] Street: City: State: Zip: Fax: Phone: Release Information To: Office Receiving: Mello Ding PLEASE FAX TO: [phone] I hereby authorize to release the health information indicated below that is contained in my patient records to the Recipient named above. I understand and acknowledge that this may include treatment for physical and mental illness, alcohol/drug abuse and or HIV/AIDS test results or diagnosis. This authorization does not include permission to release outpatient Psychotherapy Notes* as defined below. The release of Psychotherapy Notes requires a separate authorization. REPORTS REQUESTED: Diabetes Reports: Last Eye Exam This consent is subject to revocation at any time except to the extent the action has been taken thereon. This authorization and consent will in one year from the date of authorization written below. Your health care (or payment for care) will not be affected by whether or not you sign this authorization. Once your health care information is released, re-disclosure of your health care information by the Recipient my no longer be protected by law. Signature of Patient/Legal Guardian Printed Name Date Signed: ____/ / Relationship if not Patient If other than patient?s signature, a copy of the legal papers verifying authority (e.g. Power of Radio Operator or Certificate) MUST accompany the authorization when presented. Exception: parent if signing for patient under age 18. *Psychotherapy Notes defined as notes that document private, joint, group or family counseling sessions that are from the rest of a patient?s medical record. 12 LEAD ELECTROCARDIOGRAM Observed: 11/13/2017 Status: F Source: [place] 6:10 PM [facility] REPOSITORY [facility] Cardiovascular Services [address] [place] [address] 12 Lead EKG 11/08/17 0501 MR#: [id number] Acct: [id number] Name: MICHELLE THOMAS Rep #: [id number] : 1965 52 From: Javy Mccoy MD Attending Dr: Nicole Dobson Status: DIS JULIA Ordering Dr: Julian Ham DO Date: 11/08/17 Location: [facility] Sex: F C Admitted: 11/07/17 Test Reason : AM EKG Blood Pressure : / mmHG Vent. Rate : 068 BPM Atrial Rate : 068 BPM P-R Int : 128 ms QRS Dur : 132 ms QT Int : 454 ms P-R-T Axes : 044 054 041 degrees QTc Int : 482 ms Atrial-sensed ventricular-paced rhythm with occasional AV dual-paced complexes Biventricular pacemaker detected Abnormal ECG When compared with ECG of 05-FEB-2017 09:38, Vent. rate has decreased BY 10 BPM Confirmed by JAVY MCCOY ([id number]), editor magazine RADHA BETTS (56) on 11/13/2017 8:52:27 AM Referred By: MIGUEL Confirmed By:JAVY MCCOY 11/13/17 0852 Date Javy Mccoy MD CC: Nicole Dobson; Julian Ham DO; Mello Ding MD Signed 12 LEAD ELECTROCARDIOGRAM Observed: 11/13/2017 Status: F Source: [place] 6:08 PM [facility] REPOSITORY [facility] Cardiovascular Services [address] [place] [place] [address] 12 Lead EKG 11/07/17 1839 MR#: [id number] Acct: [id number] Name: MICHELLE THOMAS Rep #: [id number] : 1965 52 From: Javy Mccoy MD Attending Dr: Nicole Dobson Status: DIS JULIA Ordering Dr: Arnel Turcios DO Date: 11/07/17 Location: [facility] Sex: F C Admitted: 11/07/17 Test Reason : CP Blood Pressure : / mmHG Vent. Rate : 100 BPM Atrial Rate : 100 BPM P-R Int : 000 ms QRS Dur : 124 ms QT Int : 400 ms P-R-T Axes : 031 097 021 degrees QTc Int : 516 ms Ventricular-paced rhythm Biventricular pacemaker detected Abnormal ECG Confirmed by JAVY MCCOY ([id number]), editor magazine RADHA BETTS (56) on 11/12/2017 2:43:54 PM Referred By: AMBIKA 11/12/17 1443 Date Javy Mccoy MD CC: Nicole Dobson; Arnel Turcios; Mello Ding MD Signed DISCHARGE SUMMARY Observed: 11/08/2017 Status: F Source: [place] 12:33 PM [facility] REPOSITORY [facility] Medical Records Department [address] [place] [address] Discharge Summary 11/08/17 1008 MR#: [id number] Acct: [id number] Name: MICHELLE THOMAS Rep #: [id number] : 1965 52 From: Trina Downs TRANSPORTATION SECURITY OFFICER-C PCP: Mello Ding MD Status: DIS JULIA Y Location: [place] [address] ADDENDUM by Nicole Dobson on 11/08/17 at 1233 Code Visit ATTENDING PHYSICIAN DISCHARGE NOTE: I have seen and examined the patient independently and agree with the assessment, plan, history per Trina Downs as noted. Discharge Diagnoses: Chest pain, ACS ruled out, suspected musculoskeletal etiology Diabetes mellitus type II HTN HLD Cardiomyopathy, Nonischemic, Dilated Pulmonary HTN OA Gout RLS Allergic Rhinitis Obese Discharge Summary: The patient is a 52 y/o F w/ PMHx: Nonischemic Dilated Cardiomyopathy, HTN, HLD, Obesity, Diabetes mellitus type II, Allergic Rhinitis, RLS, OA, Gout who presents to the [facility] ED on 11/07/17 w/ history of onset of precordial chest discomfort and left-sided shoulder with radiation into the arm and into the neck as well as through to the back which she describes as squeezing in nature occurring at rest approximately 4 hours prior to ED presentation without any associated diaphoresis, nausea or emesis rated initially 9 out of 10 with improvement in the ED to 4 out of 10 following nitroglycerin administration. She did admit that the chest discomfort worsened with palpation, cough and deep inspiration. Patient was evaluated by her hot man approximately 2 weeks prior with an event monitor placement at that time secondary to history of nonischemic cardiomyopathy with last cardiac catheterization in 2014 with unclear results at that time and no recent stress testing. Dr. Lemon confirmed most recent echocardiogram 2016 with EF at 50% at that time, from prior EF reduction. In the ED work-up included EKG sinus rhythm without evidence of acute ischemia, CXR without acute process, unremarkable CBC and chemistry, cardiac enzyme set x 1 normal. The patient was admitted to PCU, maintained on cardiac telemetry, serial cardiac enzymes were obtained as well as serial EKGs which remained unremarable. Patient underwent AM 11/08/17 stress testing which was noted to be negative for inducible ischemia. FLP was obtained during admission and noted to be remarkable for HDL 38, total cholesterol 112, LDL 48, VLDL 26 with diet and lifestyle change recommendations as well as continuation of home. Patient was discharged to home statin regimen. ECHO obtained and was unchanged from more recent. Patient discharged to home in stable condition with recommendation for follow-up with primary care physician within 3-5 days as well as routine follow-up with her hot man as previously arranged. Discharge Time: 20 Minutes DAY OF DISCHARGE PROGRESS NOTE: Subjective: Patient without acute event overnight per self and nursing report. Patient notes the chest discomfort has notably improved but still has focal discomfort in the left shoulder which can be reproduced on examination. Patient denies fever, chills, nausea, emesis, abdominal pain or dyspnea. Patient agreeable to discharge to home given unremarkable stress testing and unchanged echocardiogram. Patient will be discharged with follow-up with primary care physician within 3-5 days in addition to her hot man as previously arranged. Objective: T 97.8, heart rate 56, BP 98/56, respiratory rate 14, 94% on room air. Physical Examination: General: awake, alert, oriented x 3 and cooperative, seated upright in the bed, NAD. Skin: normal color, turgor, no icterus, cyanosis. HEENT: AT/NC, EOMI, PERRLA, MMM. Lungs: CTA bilaterally, moderate effort, mild decrease BL bases, no rales, ronchi or wheezing; Heart: Regular rate and rhythm; no gallop, rub audible. Abdomen: soft, obese, NTTP, ND, normal BS. Extremities: no cyanosis, clubbing, or edema, reproducible discomfort to palpation of the left shoulder. Neurological: patient awake, alert, oriented x 3; cognitive function appears intact upon questioning,; pupils equally reactive to light and accomodation; cranial nerves II-XII grossly normal, moving all 4 extremities, strength appropriate. Psychiatric: affect appears normal, no acute evidence of depressive or anxiety feelings. Assessment and Plan: Please see hospital summary above. OBSV E AND M: [id number] Observation care discharge 11/08/17 1233 <Electronically signed by Nicole Dobson > Date Nicole Dobson cc: OVIDIO Downs; Nicole Dobson; Mello Ding MD * Signed Discharge Date and Diagnosis Date of Admission: 11/07/17 Date of Discharge: 11/08/17 - Primary Discharge Diagnosis Active and Suspected Problems (Last Reviewed 10/07/17 @ 11:55 by Carmelita Fernandes) 1. Chest pain- ACS ruled out. - Secondary Discharge Diagnosis Chronic Problems (Last Reviewed 10/07/17 @ 11:55 by Carmelita Fernandes) Diabetes mellitus type 2 in obese (Chronic) Hypertension (Chronic) Restless leg syndrome (Chronic) Hyperlipidemia Hospital Course and Treatment Imaging Results: Diagnostic Data Chest X-Ray 11/07/17 19:08 IMPRESSION: Normal x-ray examination of the chest. Electronically Signed: Franko Zurita DO at 19:30 EDT Tel [phone], Service support , Operations: None Procedures: 2-D Echocardiogram, Stress test Summary of Care Provided: The patient is a 52 year old F admitted 11/07/17 due to chest pain. Patient has a past medical history of hypertension, type 2 diabetes mellitus, restless leg syndrome, nonischemic cardiomyopathy status post ICD. Patient follows with Dr. Martinez, [facility] cardiology. Chest x-ray on admission unremarkable. Troponin negative 3. Patient underwent nuclear stress test which was negative for ischemia. Echocardiogram pending and will be reviewed prior to discharge. Patient had a previous echocardiogram in 2016 which showed an ejection fraction of 50%. Vital signs stable at discharge. Patient complains of 2/10 chest tightness. She reports she has been under increased stress lately. ACS ruled out. Patient will follow up with primary care physician in 1 week and cardiology as scheduled. General: Alert, Oriented x3, Cooperative, No apparent distress, Well developed, Well nourished HEENT: Atraumatic, PERRLA, EOMI, Normocephalic Oral: Moist Mucosa Neck: Supple, No JVD, Negative Carotid Bruits, No Nuchal Rigidity, Trachea Midline, Thyroid Normal Size and Texture Lungs: Clear to auscultation, Normal air movement, No rhonchi, No wheeze, No rales Cardiovascular: Regular rate, Regular Rhythm, Normal S1, Normal S2, No murmurs Abdomen: Bowel Sounds Present, Soft, Non Tender, Non-Distended, No hernias noted Extremities: No clubbing, No cyanosis, No edema, Capillary Refill Less than 3 Seconds Skin: No rashes, No breakdown Musculoskeletal: No tenderness to palpation Neurological: Cranial nerves II-XII grossly intact, Neuro grossly intact Psych/Mental Status: Normal Affect, Appropriate Patient seen and examined prior to discharge. Physical assessment as noted above. Patient is stable for discharge home with further follow-up with primary care physician and cardiology. This patient was seen by OVIDIO Gutierrez under the supervision of Dr. Dobson. Discharge Diet: Low fat/ Low Cholesterol, Carb Control Diet Discharge Activity: Return to Normal Activity Call your doctor if you observe: Shortness of breath, Dizziness, Fainting spells, Chest pain, Increased palpitations (irregular heartbeat) Home Medications: Medications to take at Discharge Aspirin E.C. [Ecotrin] 81 mg PO DAILY 04/18/13 Furosemide [Lasix] 40 mg PO DAILY #30 tab 04/24/13 Magnesium Oxide [Mag-Ox 400] 400 mg PO BID #30 tab 06/01/13 alogliptin 25 mg tablet 25 mg PO DAILY 08/12/17 atorvastatin 10 mg tablet 10 mg PO DAILY 08/12/17 carvedilol 12.5 mg tablet 25 mg PO BID tab 08/12/17 loratadine 10 mg tablet 10 mg PO DAILY 08/12/17 oxybutynin chloride 5 mg tablet 15 mg PO DAILY 08/12/17 pantoprazole 40 mg tablet,delayed release 40 mg PO BID tab 08/12/17 pramipexole 0.25 mg tablet 0.75 mg PO QHS tab 08/12/17 spironolactone 25 mg tablet 25 mg PO DAILY 08/12/17 repaglinide 2 mg tablet See Label Instructions PO TID #240 tab 10/07/17 metformin 500 mg tablet 500 mg PO .COMPLEX #150 tab 10/28/17 Enalapril Maleate [Vasotec] 2.5 mg PO DAILY 11/07/17 Insulin Glargine,Hum.rec.anlog [Basaglar Kwikpen U-100] 21 unit SC DAILY 11/07/17 Primary Care Physician: Mello Ding MD [Primary Care Provider] - Please follow up with your Primary Care Physician in: 1 Week Please Follow Up With: Tobias Martinez MD When: As scheduled Disposition: Home Minutes spent on discharge:: 35 Patient Condition:: Stable Medical Necessity - Tobacco Use Smoking Status: Never smoker Tobacco Use: Non-smoker Meaningful Use Info Meaningful Use Diagnoses (Choose all that apply): None applicable 11/08/17 1020 <Electronically signed by Trina AHUJAC> Date Trina AHUJAC 11/08/17 1225<Electronically signed by Nicole Dobson > Cosigner Signature (if applicable): Date Nicole Dobson CC: OVIDIO Downs; Nicole Dobson; Mello Ding MD Signed ECHOCARDIOGRAM COMPLETE Observed: 11/08/2017 Status: F Source: [place] 10:29 AM [facility] REPOSITORY [facility] Cardiovascular Services [address] [place] [id number] Echo Complete W/ Contrast 11/08/17 0853 MR#: [id number] Acct: [id number] Name: MICHELLE THOMAS Rep #: [id number] : 1965 52 From: Javy cMcoy MD Attending Dr: Nicole Dobson Status: ADM JULIA Ordering Dr: Julian Ham DO Date: 11/08/17 Location: [facility] Sex: F C Admitted: 11/07/17 Reason For Study: CHEST PAIN Procedure This was a 2D Doppler, Color Flow transthoracic echocardiogram. Exam performed in department. Left Ventricle Mildly dilated left ventricle. The estimated ejection fraction is 50-55 %. Stage 1 diastolic dysfunction. There is mild global hypokinesis of the left ventricle. Right Ventricle Mildly dilated right ventricle. ICD or pacer leads identified within the right ventricle. Normal systolic function. Atria Normal left atrium. Normal right atrium. Normal atrial septum. Mitral Valve The mitral valve is structurally normal. No prolapse or stenosis seen. Tricuspid Valve Normal tricuspid valve. Trivial tricuspid valve insufficiency. Right ventricular systolic pressure estimated to be 21 mmHg. Aortic Valve Trisinus/trileaflet aortic valve. Normal aortic valve. Pulmonic Valve The pulmonic valve is not well visualized. Great Vessels Normal aortic root. Normal arch. Normal inferior vena cava. Inferior vena cava collapse with sniff. Pericardium/Pleural No pericardial effusion. Medication Diluted definity 2.0ml given slow IV push to enhance endocardial definition. MMode/2D Measurements AND Calculations LVIDd: 5.1 cm IVSd: 0.76 cm Ao root diam: 2.9 cm LVIDs: 3.6 cm LVPWd: 0.79 cm LA dimension: 3.6 cm RVDd: 3.5 cm FS: 29.5 % LAV(MOD-bp): 46.5 ml LAV(MOD-bp) Indexed: 22.3 ml/m2 LA A4 area: 16.9 cm2 RA A4 area: 15.4 cm2 LAV(MOD-sp2): 43.0 ml LAV(MOD-sp4): 49.5 ml Doppler Measurements AND Calculations MV E max sirena: 68.1 cm/sec Lat Peak E' Sirena: 6.1 cm/sec Med Peak E' Sirena: 5.0 cm/sec MV A max sirena: 88.1 cm/sec E/E' lat: 11.2 E/E' med: 13.7 MV E/A: 0.77 Ao V2 max: 115.4 cm/sec LV V1 max: 89.6 cm/sec PA V2 max: 110.9 cm/sec Ao max P.3 mmHg LV V1 max P.2 mmHg TR max sirena: 202.2 cm/sec TR max P.4 mmHg Interpretation Summary Mildly dilated left ventricle. The estimated ejection fraction is 50-55 %. Stage 1 diastolic dysfunction. There is mild global hypokinesis of the left ventricle. Mildly dilated right ventricle. Trivial tricuspid valve insufficiency. Right ventricular systolic pressure estimated to be 21 mmHg. Compared to echo report dated 08/10/2013, LV function has markedly improved from 15% to 50-55%. Ordering Physician: Julian Ham Referring Physician: Mello Ding Performed By: Lori Ruffin, JEANINE, RVT 11/08/17 1028 Date Javy Mccoy MD CC: Nicole Dobson; Julian Ham DO; Mello Ding MD Date Dictated: 11/08/17 0853 Date Transcribed: 11/08/17 1028 Quality Assurance Supervisor Trim: Signed DISCHARGE INSTRUCTION Observed: 11/08/2017 Status: F Source: [place] 10:08 AM [facility] REPOSITORY [facility] Medical Records Department [address] [place] [address] Instructions for Home/Discharge Instructions 11/08/17 0954 MR#: [id number] Acct: [id number] Name: WILLIAMMICHELLE DILAN Rep #: [id number] : 1965 52 From: Trina Downs TRANSPORTATION SECURITY OFFICER-C PCP: Mello Ding MD Status: ADM JULIA - Discharge Diagnoses Current Active Problems: Current Active and Chronic Problems (Last Reviewed 10/07/17 @ 11:55 by Carmelita Fernandes) Chest pain (Acute) You will use the following diet at home:: Calorie/Carbohydrate Controlled (specify 1200, 1400, etc), Cardiac Discharge Activity: Return to Normal Activity Call your doctor if you observe: Shortness of breath, Dizziness, Fainting spells, Chest pain, Increased palpitations (irregular heartbeat) Allergies/Adverse Reactions: Allergies simvastatin Allergy (Severe, Verified 10/07/17 11:55) Unknown Latex, Natural Rubber Allergy (Unknown, Verified 10/07/17 11:55) Rash Medications to take at Discharge Aspirin E.C. [Ecotrin] 81 mg PO DAILY 04/18/13 Furosemide [Lasix] 40 mg PO DAILY #30 tab 04/24/13 Magnesium Oxide [Mag-Ox 400] 400 mg PO BID #30 tab 06/01/13 alogliptin 25 mg tablet 25 mg PO DAILY 08/12/17 atorvastatin 10 mg tablet 10 mg PO DAILY 08/12/17 carvedilol 12.5 mg tablet 25 mg PO BID tab 08/12/17 loratadine 10 mg tablet 10 mg PO DAILY 08/12/17 oxybutynin chloride 5 mg tablet 15 mg PO DAILY 08/12/17 pantoprazole 40 mg tablet,delayed release 40 mg PO BID tab 08/12/17 pramipexole 0.25 mg tablet 0.75 mg PO QHS tab 08/12/17 spironolactone 25 mg tablet 25 mg PO DAILY 08/12/17 repaglinide 2 mg tablet See Label Instructions PO TID #240 tab 10/07/17 metformin 500 mg tablet 500 mg PO .COMPLEX #150 tab 10/28/17 Enalapril Maleate [Vasotec] 2.5 mg PO DAILY 11/07/17 Insulin Glargine,Hum.rec.anlog [Basaglar Kwikpen U-100] 21 unit SC DAILY 11/07/17 Primary Care Physician: Mello Ding MD [Primary Care Provider] - Please follow up with your Primary Care Physician in: 1 Week Please Follow Up With: Tobias Martinez MD When: As scheduled Proposed Discharge Date: 11/08/17 11/08/17 1008 <Electronically signed by Trina NOLAN> Date Trina NOLAN CC: Mello Ding MD STRESS REPORT Observed: 11/08/2017 Status: F Source: [place] 8:48 AM [facility] REPOSITORY [facility] Cardiovascular Services [address] [place] [address] MR#: [id number] Acct: [id number] Name: MICHELLE THOMAS Rep #: [id number] : 1965 52 From: Edgard Roberts MD Primary Care: Mello Ding MD Status: ADM JULIA Ordering Dr: Sex: F C Stress Test Report Date: 11/08/2017 Procedure: Pharmacologic stress nuclear imaging study Indications: Chest pain; cardiomyopathy; ICD Consent: Per the patient Procedure: The patient underwent pharmacologic (Regadenoson) evaluation with a peak heart rate of 112 beats per minute (66 predicted maximal heart rate) and a peak blood pressure of 100/50 mmHg. The baseline ECG demonstrated electronic ventricular pacemaker. The peak pharmacologic ECG demonstrated electronic ventricular pacemaker. There were no cardiac dysrhythmias pretest, during pharmacologic infusion, or recovery. There was no complaint of chest discomfort during pharmacologic infusion or recovery. The examination was discontinued secondary to completion of protocol. Impression: 1. Pharmacologic (Regadenoson) evaluation 2. Peak pharmacologic ECG with continued electronic ventricular pacemaker. 3. There were no cardiac dysrhythmias pretest, during pharmacologic infusion, or recovery 4. Nuclear images pending Myocardial perfusion imaging study: Technique: The patient was injected with 14.1 millicuries of technetium 99m Cardiolite and subsequently rest SPECT Cardiolite nuclear imaging was obtained in the horizontal long, vertical long, and short axis views. The patient underwent pharmacologic (Regadenoson) evaluation with a peak heart rate of 112 beats per minute (66 % percent predicted maximal heart rate) and a peak blood pressure of 100/50 mmHg. The patient was injected with 44.4 millicuries of technetium 99m Cardiolite and subsequently stress SPECT Cardiolite nuclear imaging was obtained in the horizontal long, vertical long, and short axis views. A gated Cardiolite study at peak stress was obtained. Interpretation: Rest and stress SPECT Cardiolite nuclear imaging status post realignment, normalization, and attenuation correction demonstrate rest and area of decreased tracer uptake in the distal anterior segments which appears to improve/normalize following stress. Both rest and stress SPECT Cardiolite nuclear imaging demonstrate a small area of diminished tracer uptake in the apical segments without change between rest and stress.. There is end systolic thickening and brightening. The gated Cardiolite study demonstrates myocardial thickening and inward wall motion. The reported LVEF is 59 %. Impression: 1. Rest and stress SPECT cardiac nuclear imaging demonstrate an area of decreased tracer uptake in the distal anterior segments at rest which appear to improve/normalize following stress appearing compatible with shifting soft tissue attenuation/artifact as well as findings compatible with physiologic apical thinning with no myocardial perfusion changes consider diagnostic for associated stress-induced myocardial ischemia. 2. The gated Cardiolite study reports an LVEF of 59 %. This note was generated with Ubiation software. It may contain incorrect words, spelling, and punctuation that were not noted in checking the note before signing. 11/08/17847 <Electronically signed by Edgard Roberts MD> Date Edgard Roberts MD CC: Nicole Dobsno; Mello Ding MD Date Dictated: 11/08/17841 Date Transcribed: 11/08/17841 Quality Assurance Supervisor Trim: PM Signed BEDSIDE GLUCOSE Collected: 11/08/2017 Status: F Source: [place] 5:41 AM [facility] REPOSITORY TYPE CODE TESTS RESULT OUT OF RANGE REFERENCE UNITS LAB L501.080 70-110 mg/dL Normal BEDSIDE GLU 78 Result Comment: MANAGEMENT OF PATIENT CARE PER NURSING PROTOCOL Performed By: #### L501.080 #### [facility] Point of Care [address] [place], [place] [address] TROPONIN-I Collected: 11/08/2017 Status: F Source: [place] 3:10 AM [facility] REPOSITORY Order Comment: 'TROP' Serial specimen #1, #2, #3, or #4: 3 TYPE CODE TESTS RESULT OUT OF RANGE REFERENCE UNITS LAB L501.4010 <0.06 ng/mL Normal < 0.02 TROPONIN-I Result Comment: TROPONIN-I EXPECTED VALUES <0.05 NEGATIVE 0.06 - 0.59 AT RISK OF [place] > OR = 0.60 SUGGEST [place] Performed By: #### L501.4010 #### [facility] [address] [place], [place], [id number] CBC W/DIFF, AUTOMATED Collected: 11/08/2017 Status: F Source: [place] 3:10 AM [facility] REPOSITORY TYPE CODE TESTS RESULT OUT OF RANGE REFERENCE UNITS LAB L100.1000 4.4-11.0 K/mm3 Normal WBC 6.1 LAB L100.1200 4.2-5.4 M/mm3 Low RBC 3.65 LAB L100.1300 12.0-15.0 g/dl Low HGB 10.3 LAB L100.1400 37-47 % Low HCT 31.8 LAB L100.1500 81-99 fL Normal MCV 87.1 LAB L100.1600 27.0-32.0 pg Normal MCH 28.2 LAB L100.1700 32-36 g/gl Normal MCHC 32.4 LAB L100.1810 11.6-14.6 % High RDW CV 15.3 LAB L100.1820 35.1-43.9 fl High RDW SD 47.0 LAB L100.1900 150-450 K/mm3 Normal PLT 191 LAB L100.2000 6.2-12.0 fl Normal MPV 10.5 LAB L100.2100 47-70 % Normal NEUT% 53.0 LAB L100.2200 19-41 % Normal LY% 35.6 LAB L100.2300 0-10 % Normal MONO% 8.1 LAB L100.2400 0-5 % Normal EO% 2.6 LAB L100.2500 0-1 % Normal BASO% 0.5 LAB L100.2550 0.0-0.9 % Normal IM GRAN % 0.200 Result Comment: IG% - Immature Granulocytes (promyelocytes, myelocytes and metamyelocytes) > 1% indicates that a LEFT SHIFT is Present. LAB L100.2620 2.0-7.7 X10 3/uL Normal Absolute Neut 3.2 LAB L100.2720 0.83-4.51 X10 3/ul Normal Absolute Lymph 2.16 Performed By: #### L100.0100 #### [facility] [address] [place], [place], [address] PROTHROMBIN TIME W/INR Collected: 11/08/2017 Status: F Source: [place] 3:10 AM [facility] REPOSITORY TYPE CODE TESTS RESULT OUT OF RANGE REFERENCE UNITS LAB L300.4150 11.7-14.9 SECONDS Normal PROTIME 13.3 LAB L300.4200 Normal INR 1.0 Performed By: #### L300.3900, L300.4310 #### [facility] [address] [place], [address] PARTIAL THROMBOPLAST Collected: 11/08/2017 Status: F Source: [place] TIME 3:10 AM [facility] REPOSITORY TYPE CODE TESTS RESULT OUT OF RANGE REFERENCE UNITS LAB L300.4310 24.1-36.2 Seconds Normal PTT 28.9 Performed By: #### L300.3900, L300.4310 #### [facility] [address] [place], [address] BASIC METABOLIC Collected: 11/08/2017 Status: F Source: [place] PROFILE (BMP) 3:10 AM [facility] REPOSITORY TYPE CODE TESTS RESULT OUT OF RANGE REFERENCE UNITS LAB L501.0100 74-106 mg/dL Low GLU 69 Result Comment: Please note revised GLUCOSE reference range effective 2017. LAB L501.1000 7-18 mg/dL Normal BUN 11 LAB L501.1100 0.55-1.02 mg/dL Normal CREAT,SERUM 0.73 Result Comment: The validity of the calculated GFR AND GFRAA in patients over 70 years has not been determined. Clinical correlation is essential. LAB L501.1110 >60 mL/min Normal EST GFR 89 Result Comment: Non- GFR Calc LAB L501.1115 >60 mL/min Normal EST GFR - AA 108 Result Comment: GFR Calc LAB L501.1255 ml/min Normal Estimated CRCL 95.28 LAB L501.1300 10-20 RATIO Normal BUN/CRE 15.1 LAB L501.2200 8.5-10 mg/dL Normal .1 CA 9.1 LAB L501.5300 136-14 mmol/L Normal 5 NA 143 LAB L501.5600 3.5-5. mmol/L Normal 1 K 3.6 LAB L501.5900 98-107 mmol/L Normal CL 107 LAB L501.6100 21.0-3 mmol/L Normal 2.0 CO2 26.0 LAB L501.6200 5-15 Normal GAP 10 Performed By: #### L500.2500 #### [facility] [address] [place], [address] LIPID PROFILE Collected: 11/08/2017 Status: F Source: [place] 3:10 AM [facility] REPOSITORY TYPE CODE TESTS RESULT OUT OF RANGE REFERENCE UNITS LAB L501.4900 200 mg/dL Normal CHOL 112 Result Comment: <200 mg/dL Desirable 200-240 mg/dL Borderline >240 mg/dL High Risk LAB L501.5000 mg/dL Normal TRIG 129 Result Comment: The drugs N-Acetylcysteine and Metamizole may falsely depress this assay. Serum Triglycerides Reference Interval Normal <150 mg/dL Borderline high 150 - 199 mg/dL High 200 - 499 mg/dL Very High > or = 500 mg/dL LAB L501.6400 mg/dL Low HDL 38 Result Comment: The drugs N-Acetylcysteine and Metamizole may falsely depress this assay. Reference Range HDL <40 mg/dL Low HDL Cholesterol HDL >or= 60 mg/dL High HDL Cholesterol LAB L501.6500 0-130 mg/dL Normal LDL 48 LAB L501.6600 5-40 mg/dL Normal VLDL 26 Performed By: #### L500.4100, L501.5200 #### [facility] [address] [place], [address] MAGNESIUM Collected: 11/08/2017 Status: F Source: [place] 3:10 AM [facility] REPOSITORY TYPE CODE TESTS RESULT OUT OF RANGE REFERENCE UNITS LAB L501.5200 1.6-2.6 mg/dL Normal MG 2.0 Performed By: #### L500.4100, L501.5200 #### [facility] [address] [place], [address] BEDSIDE GLUCOSE Collected: 11/07/2017 Status: F Source: [place] 10:37 PM [facility] REPOSITORY TYPE CODE TESTS RESULT OUT OF REFERENCE UNITS RANGE LAB L501.080 70-110 mg/dL High BEDSIDE GLU 146 Result Comment: MANAGEMENT OF PATIENT CARE PER NURSING PROTOCOL Performed By: #### L501.080 #### [facility] Point of Care [address] [place] [address] HISTORY AND PHYSICAL Observed: 11/07/2017 Status: F Source: [place] EXAM 9:21 PM [facility] REPOSITORY [facility] Medical Records Department [address] [place] [address] History and Physical 11/07/17 2104 MR#: [id number] Acct: [id number] Name: MICHELLE THOMAS Rep #: [id number] : 1965 52 From: Julian Ham DO PCP: Mello Ding MD Status: ADM JULIA Y Location: [place] [address] Problem List (1) Chest pain Status: Acute Qualifiers: Chest pain type: chest pain on breathing Qualified Code(s): R07.1 - Chest pain on breathing; R07.81 - Pleurodynia History of Present Illness Date of Admission: 11/07/17 Chief Complaint: Chest obok-ubltokaz-mkzt in nature, worse on inspiration and coughing The patient is a 52 year old F who was seen in the emergency room at [facility] with chief complaint of precordial chest pain, it is nonradiating down her arm, up into her neck or through to her back. She describes the pain as being squeezing in nature, it started when she was at rest this afternoon approximately 4 hours ago, it was not accompanied by any diaphoresis, nausea, or vomiting. Patient rated the pain as being a 9 out of 10, she was given a nitroglycerin in the emergency room and at the time of my examination, she says it is 4 out of 10 with 10 being the worst pain. Patient does say that her chest pain worsens with cough or deep inspiration. Workup was performed in the emergency room which included an EKG which showed a paced rhythm at 100, chest x-ray was unremarkable except for the presence of an ICD, patient's labs were remarkable for an elevated blood sugar at 184, patient's troponin was unremarkable. On my examination, I was able to reproduce the patient's chest discomfort by pushing on her chest, she confirmed that this was the same discomfort that she was experiencing. Patient is a very poor informant, she initially told the emergency room physician that she had a stress test done 2 weeks ago-I confirmed with her hot man that she did not have any testing done 2 weeks ago, only a placement of an event monitor. Patient has a history of a nonischemic cardiomyopathy and had a cardiac catheterization in 2014-she does not seem to know the results of this catheterization however. I was able to get some information from her hot man Dr. Martinez, he states that she had an echocardiogram performed in 2016 which showed an EF of 50%, he has no record of her ever having a stress test in his medical records. He states an event monitor was placed on the patient this month because she complained of palpitations. Since the patient is a type II diabetic, I feel she should be placed in observation status and have an echocardiogram tomorrow and a stress test. Patient is in agreement with this. Past Medical History Past Medical History (Chronic Problems): Chronic Problems (Last Reviewed 10/07/17 @ 11:55 by Carmelita Fernandes) Diabetes mellitus type 2 in obese (Chronic) Hypertension (Chronic) Restless leg syndrome (Chronic) Allergies simvastatin Allergy (Severe, Verified 10/07/17 11:55) Unknown Latex, Natural Rubber Allergy (Unknown, Verified 10/07/17 11:55) Rash Home Medications: Ambulatory Orders Medication Instructions Recorded Aspirin E.C. 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 Smoking Status: Never smoker Tobacco Use: Non-smoker Alcohol: Rare Drugs: None - *Family History Maternal History Items: Heart Disease - In her 50s-60s Paternal History Items: Heart Disease - At age 55 Review of Systems Constitutional: Denies: Anorexia, Chills, Fever, Night Sweats, Malaise, Weakness, Weight Change, Fatigue Eyes: Denies: Blurred vision, Cataracts, Conjunctivae Inflammation, Double vision, Drainage, Eyelid Inflammation, Pain HEENT: Denies: Difficulty Hearing, Difficulty Swallowing, Dysphasia, Ear Pain, Eye Pain, Head Aches, Hearing Changes, Nasal bleeding, Nasal Congestion, Post Nasal Drip Cardiovascular: Reports: Chest Pain, Chest Tightness. Denies: Claudication, Chest Pressure, Edema, Heaviness, Light Headedness, Orthopnea, Palpitations, Syncope Respiratory: Reports: Pleuritic Pain. Denies: Cough, Hemoptysis, Shortness of Breath, Shortness of breath at rest, Shortness of breath upon exertion, Sputum production, Wheezing Gastrointestinal: Denies: Abdominal Pain, Constipation, Diarrhea, Hematemesis, Hematochezia, Nausea, Melena, Vomiting Genitourinary: Denies: Dysuria, Frequency, Hematuria, Hesitancy, Incontinence, Nocturia, Urgency Gynecological: Denies: Breast symptoms Musculoskeletal: Denies: Back Pain, Foot Pain, Hand Pain, Joint Pain, Joint stiffness, Joint swelling, Joint Tenderness, Leg Pain Skin: Denies: Dryness, Jaundice, Pruritis, Rash Neurological: Denies: Balance problems, Blurred vision, Double vision, Slurred speech, Difficulty swallowing, Focal weakness, Headaches, Incoordination, Numbness, Tingling Psychiatric: Denies: Anxiety, Depression, Homicidal Ideations, Suicidal Ideations Endocrine: Denies: Change in Body Habitus, Heat/ Cold Intolerance, Polydipsia, Polyuria Hematologic/ Lymphatic: Denies: Adenopathy, Anemia, Easy Bruising, Easy Bleeding, Petechiae, Purpura VTE Information - Inpt Only VTE Present on Admission: No VTE Mechan Device Prophylaxis: SCD's VTE Pharm Prophylaxis ordered?: No Reason prophylaxis not ordered:: Treatment Not Indicated - SCD's ordered Patient Problems: Active and Suspected Problems (Last Reviewed 10/07/17 @ 11:55 by Carmelita Fernandes) Chest pain (Acute) - Physical Exam General: Alert, Oriented x3, Cooperative, No apparent distress, Well developed, Well nourished, - - Poor informant HEENT: Atraumatic, PERRLA, EOMI, Normocephalic Oral: Moist Mucosa Neck: Supple, No JVD, Negative Carotid Bruits, No Nuchal Rigidity, Trachea Midline, Thyroid Normal Size and Texture Lungs: Clear to auscultation, Normal air movement, No rhonchi, No wheeze, No rales Cardiovascular: Regular rate, Regular Rhythm, Normal S1, Normal S2, No murmurs, No Ectopic Activity, PMI Normal, No rub noted, No Gallop Abdomen: Bowel Sounds Present, Soft, Non Tender, Non-Distended, No hernias noted Extremities: No clubbing, No cyanosis, No edema, Capillary Refill Less than 3 Seconds Skin: No rashes, No breakdown Musculoskeletal: Tenderness - Tenderness to palpation of the chest wall is noted Neurological: Cranial nerves II-XII grossly intact, Neuro grossly intact, Sensory exam intact to light touch and pain, Coordination normal Psych/Mental Status: Normal Affect, Appropriate, Alert and oriented to time, place, person, mood and affect Vital Signs Temp Pulse Resp BP Pulse Ox 98.4 F 93 14 145/86 H 94 11/07/17 18:34 11/07/17 20:09 11/07/17 20:09 11/07/17 20:09 11/07/17 20:09 Oxygen Flow Rate (L/min) 2 Oxygen Delivery Method Room Air Weight: 93.894 kg Body Mass Index (BMI) 30.5 Laboratory Tests Past 24 Hrs WBC 7.6 RBC 4.20 Hgb 11.5 L Hct 36.4 L MCV 86.7 MCH 27.4 MCHC 31.6 L RDW 15.3 H Assessment/Plan Active and Suspected Problems (Last Reviewed 10/07/17 @ 11:55 by Carmelita Fernandes) Chest pain (Acute) #1 chest pain-this has a pleuritic component and is reproducible by chest pressure on my examination, I feel this is probably not cardiac in nature, however, patient is diabetic and her risk factors indicate to me that she should probably be worked up for the chest discomfort and have a stress test and echocardiogram. I will place her in observation status on PCU in order an echocardiogram and a resting pharmacological nuclear stress test tomorrow. Patient is okay with this approach #2 nonischemic cardiomyopathy by history-again the patient's last echocardiogram 2015 showed an intermediate ejection fraction of 50%, echocardiogram will be repeated during her hospital stay here #3 type 2 diabetes-2 the patient's oral blood pressure medications were nonformulary here, I will continue the patient's Glucophage and give her sliding scale insulin per protocol. Code Visit OBSV E AND M: [id number] Initial observation care L3 11/07/172120 <Electronically signed by Julian Ham DO> Date Julian Ham DO Cosigner Signature: Date (if applicable) CC: Julian Ham DO; Mello Ding MD Signed EMERGENCY DEPARTMENT Observed: 11/07/2017 Status: F Source: [place] SUMMARY 8:52 PM [facility] REPOSITORY [facility] Medical Records Department [address] [place] [address] Emergency Department Summary 11/07/172046 MR#: [id number] Acct: [id number] Name: MICHELLE THOMAS Rep #: [id number] : 1965 52 From: Arnel Guzman PCP: Mello Ding MD Status: REG ER - ER Visit Summary Date of Service: 11/07/17 Chief Complaint: Chest pain History of Present Illness: The patient is a 52 F sudden chest tightness at rest at 4 PM while sitting. No radicular symptoms. Complains of dyspnea. Dry allergic cough per patient. Denies tobacco history. Currently pain is a 7 out of 10. History of nonischemic cardiomyopathy, AICD placed in 2014 at [facility]. She states she had a heart cath at that time with no stenting. Diabetes, hypertension, hypercholesterolemia history. [facility] saw her hot man Dr. Martinez on the . [facility] saw him for racing heart. Holter monitor placed. Initially stated that she had a stress test at that time, however later found out it was an echocardiogram. Denies [place] history. Mom and dad with MIs in their 50s. Patient took a baby aspirin prior to arrival. No other complaints. Physical Examination: General: Alert and oriented 3, no acute distress HEENT: Normocephalic, atraumatic. Moist mucosa membranes Neck: supple, nontender. Cardiovascular: Regular rate and rhythm, no murmurs Respiratory: Normal breath sounds, symmetric, no distress Abdomen: Soft, nontender, nondistended Extremities: Nontender, no edema, pulses intact 4 Neuro: no focal neurological deficits. Test Results: EKG ventricular paced at 100, no ST or T-wave changes. Chest x-ray negative. Troponin negative. Emergency Department Course and Treatment: Patient EKG notes a paced rhythm. Given additional aspirin nitro series. Chest x-ray negative. Cardiac workup negative. Patient with moderate improvement with NTG. Discussed with hospitalist, Dr. Smith, evaluated the patient for admission. Heart score = 4. Treatment Plan: [] Disposition: admit Impression: Acute chest pain This note was generated with Ubiation software. It may contain incorrect words, spelling, and punctuation that were not noted in review of the chart prior to signing ED Disposition - Plan for ED Patient: Disposition: Acute Care Hospital [facility] Chief Complaint: Chest Pain Diagnosis: Chest pain Referrals: Mello Ding MD [Primary Care Provider] - What to do if you have Problems For any increased pain, shortness of breath, bleeding, nausea or vomiting, chest pain, or any unexpected problems, contact your Primary Care Provider. Call [facility] ([phone]) or report to the closest Emergency Room. Call 911 if necessary. 11/07/172051 <Electronically signed by Arnel Guzman> Date Arnel Guzman Cosigner Signature (If Indicated): Date CC: Mello Ding MD CHEST 1 VIEW Observed: 11/07/2017 Status: F Source: [place] (PORTABLE) 7:09 PM [facility] REPOSITORY [facility] Imaging Services [address] [place] [id number] Chest 1 View (Portable) MR#: [id number] Acct: [id number] Name: MICHELLE THOMAS Rep #: [id number] : 1965 F 52 From: Franko Zurita DO PCP: Mello Ding MD Status: PRE ER Study: Chest 1 View (Portable) Date of Exam: 11/07/17 Exam# [id number] Ordering Dr: Arnel Turcios DO STUDY: X-RAY CHEST REASON FOR EXAM: Female, 52 years old. Chest pain, headache TECHNIQUE: Single frontal view COMPARISON: February 05, 2017 FINDINGS: Stable left-sided pacemaker. The lungs are clear and expanded. There is no demonstrated pleural abnormality. Normal size heart. Normal mediastinum and remy. Normal visualized pulmonary arteries. Normal visualized aortic arch and descending thoracic aorta. Normal visualized thoracic spine. Normal visualized ribs, clavicles, and shoulders. There is no demonstrated abnormality of the visualized soft tissue structures of the upper abdomen. RAD/Chest 1 View (Portable) IMPRESSION: Normal x-ray examination of the chest. Electronically Signed: Franko Zurita DO at 19:30 EDT Tel [phone], Service support , CC: Arnel Turcios; Mello Ding MD Quality Assurance Supervisor Trim: Signed CBC W/DIFF, AUTOMATED Collected: 11/07/2017 Status: F Source: [place] 6:45 PM [facility] REPOSITORY TYPE CODE TESTS RESULT OUT OF RANGE REFERENCE UNITS LAB L100.1000 4.4-11.0 K/mm3 Normal WBC 7.6 LAB L100.1200 4.2-5.4 M/mm3 Normal RBC 4.20 LAB L100.1300 12.0-15.0 g/dl Low HGB 11.5 LAB L100.1400 37-47 % Low HCT 36.4 LAB L100.1500 81-99 fL Normal MCV 86.7 LAB L100.1600 27.0-32.0 pg Normal MCH 27.4 LAB L100.1700 32-36 g/gl Low MCHC 31.6 LAB L100.1810 11.6-14.6 % High RDW CV 15.3 LAB L100.1820 35.1-43.9 fl High RDW SD 48.5 LAB L100.1900 150-450 K/mm3 Normal PLT 235 LAB L100.2000 6.2-12.0 fl Normal MPV 10.3 LAB L100.2100 47-70 % Normal NEUT% 63.7 LAB L100.2200 19-41 % Normal LY% 26.2 LAB L100.2300 0-10 % Normal MONO% 7.4 LAB L100.2400 0-5 % Normal EO% 2.0 LAB L100.2500 0-1 % Normal BASO% 0.3 LAB L100.2550 0.0-0.9 % Normal IM GRAN % 0.400 Result Comment: IG% - Immature Granulocytes (promyelocytes, myelocytes and metamyelocytes) > 1% indicates that a LEFT SHIFT is Present. LAB L100.2620 2.0-7.7 X10 3/uL Normal Absolute Neut 4.9 LAB L100.2720 0.83-4.51 X10 3/ul Normal Absolute Lymph 1.99 Performed By: #### L100.0100 #### [facility] [address] [place], [address] BASIC METABOLIC Collected: 11/07/2017 Status: F Source: [place] PROFILE (BMP) 6:45 PM [facility] REPOSITORY Order Comment: 'TROP' Serial specimen #1, #2, #3, or #4: 1 TYPE CODE TESTS RESULT OUT OF RANGE REFERENCE UNITS LAB L501.0100 74-106 mg/dL High GLU 184 Result Comment: Fasting Glucose result greater than or equal to 126 mg/dL suggests DIABETES MELLITUS per A.D.A. criteria. Please note revised GLUCOSE reference range effective 2017. LAB L501.1000 7-18 mg/dL Normal BUN 14 LAB L501.1100 0.55-1.02 mg/dL Normal CREAT,SERUM 0.91 Result Comment: The validity of the calculated GFR AND GFRAA in patients over 70 years has not been determined. Clinical correlation is essential. LAB L501.1110 >60 mL/min Normal EST GFR 69 Result Comment: Non- GFR Calc LAB L501.1115 >60 mL/min Normal EST GFR - AA 84 Result Comment: GFR Calc LAB L501.1255 ml/min Normal Estimated CRCL 76.44 LAB L501.1300 10-20 RATIO Normal BUN/CRE 15.4 LAB L501.2200 8.5-10 mg/dL Normal .1 CA 9.6 LAB L501.5300 136-14 mmol/L Normal 5 NA 138 LAB L501.5600 3.5-5. mmol/L Normal 1 K 3.9 LAB L501.5900 98-107 mmol/L Normal CL 103 LAB L501.6100 21.0-3 mmol/L Normal 2.0 CO2 28.0 LAB L501.6200 5-15 Normal GAP 7 Performed By: #### L500.2500, L501.4010 #### [facility] [address] [place], [place], [address] TROPONIN-I Collected: 11/07/2017 Status: F Source: [place] 6:45 PM [facility] REPOSITORY Order Comment: 'TROP' Serial specimen #1, #2, #3, or #4: 1 TYPE CODE TESTS RESULT OUT OF RANGE REFERENCE UNITS LAB L501.4010 <0.06 ng/mL Normal < 0.02 TROPONIN-I Result Comment: TROPONIN-I EXPECTED VALUES <0.05 NEGATIVE 0.06 - 0.59 AT RISK OF [place] > OR = 0.60 SUGGEST [place] Performed By: #### L500.2500, L501.4010 #### [facility] [address] [facility] [place], [place], [address] PROGRESS Observed: 10/30/2017 Status: COMPLETED Source: [place] 11:40 AM [facility] REPOSITORY HNO ID: [id number] Author: Julee Elmore (Pa) Service: (none) Author Type: Physician V Belt Builder Type: Progress Notes Filed: 10/30/2017 12:31 PM Note Text: [facility] FOR FEMALE PELVIC MEDICINE AND RECONSTRUCTIVE SURGERY HISTORY OF PRESENT ILLNESS: Patient is a 52 yo female who is here for follow up of OAB. She presents with her significant other. At last visit, myrbetriq 50mg was prescribed but not covered by insurance. The goal was to try dual therapy with myrbetriq and oxybutynin. Due to insurance issue, patient has only been on oxybutynin 15mg XL which she says is improving her urinary symptoms but they are still very bothersome. She is currently on lasix daily - leads her to have more frequent urination. Decreased her iced tea intake - no improvement DTF: way too many times per day NTF: 2x She reports she is having a number of issues with her heart recently and is followed by cardiology. Per HPI at last appointment 08/07/17: She was previously see by Dr. Hernandez in [place], most recently in 08/2016 for OAB. She had a negative hematuria workup with Dr. Hernandez in 2012 -she had one episode of gross hematuria after catheter removal (catheter placed while she was in the hospital for CHF). She is here today for OAB. She has had urgency and urge urinary incontinence. Pads: 0 pads Is currently having accidents every other day or so. She is currently taking oxybutynin 5mg BID. She states it is no longer helping like it once did. Nocturia: 3x On water pill which she takes the morning. She also drinks a lot of fluids. Fluid Intake: 0 cups coffee per day too much tea per day - caffeinated, (1 cup of sugar per gallon) 1 soda per day Uncertain of water intake. Disease Specificity: Acuity: Chronic Severity: Moderate, 5/10 Anatomic Site: Bladder, Laterality: N/A Underlying Condition/Causal Agent: Primary Associated Conditions/Manifestations: N/A Stress incontinence Yes Urge incontinence Yes Number of pads used: 0 UTI within the last 12 months No Lower urinary tract symptoms:Nocturia (3x per night) and Urgency GENERAL REVIEW OF SYSTEMS GENERAL: negative for malaise, significant weight loss and fever SKIN: Positive for skin issues RESPIRATORY: Negative for cough and shortness of breath CARDIOVASCULAR: Negative for chest pain or [place] + history of CHF GI: Negative for abdominal discomfort or fecal incontinence GENITOURINARY: See HPI ENDOCRINE:Positive for diabetes and thyroid issues NEURO: Negative for numbness, tingling, tremor, fainting, seizures MUSCULOSKELETAL: Positive for low back pain and joint pain BLOOD/LYMPHATIC: NO EASY BLEEDING, EASY BRUISING PSYCH: Positive for depression or anxiety. All other systems were reviewed and no new changes since last visit HISTORIES Present medications: Current Outpatient Prescriptions: Pramipexole 0.75 mg tablet TAKE 1 TABLET BY MOUTH AT BEDTIME oxybutynin ER (DITROPAN XL) 15 mg 24 hr Extended Rel Tab Take 1 tablet by mouth once daily. enalapril (VASOTEC) 2.5 mg tablet Take 1 tablet by mouth once daily. furosemide (LASIX) 40 mg tablet TAKE 1 TABLET DAILY spironolactone (ALDACTONE) 25 mg tablet TAKE 1 TABLET DAILY atorvastatin (LIPITOR) 10 mg tablet TAKE 1 TABLET DAILY carvedilol (COREG) 25 mg tablet TAKE 1 TABLET TWICE A DAY pantoprazole DR (PROTONIX) 40 mg tablet TAKE 1 TABLET BY MOUTH TWICE DAILY triamcinolone acetonide (KENALOG) 0.1 % ointment Apply to affected area on legs twice daily as needed. Use 2 weeks on 1 week off. Not for face, armpits or groin insulin glargine (BASAGLAR KWIKPEN) 100 unit/mL (3 mL) inpn Inject 21 Units subcutaneously every evening. metFORMIN (GLUCOPHAGE) 500 mg tablet Take by mouth. 2 pills in AM, 1 pill with lunch, and 2 pills with supper aspirin, enteric coated (ECOTRIN LOW STRENGTH) 81 mg EC tablet Take 1 tablet by mouth once daily. loratadine (CLARITIN) 10 mg tablet Take 1 tablet by mouth once daily. alogliptin 25 mg tab Take 1 tablet by mouth once daily. magnesium oxide (MAG-OX) 400 mg tablet Take 1 tablet by mouth twice daily. fluticasone (FLONASE) 50 mcg/actuation nasal spray Use 2 Sprays in each nostril once daily. ONETOUCH ULTRA TEST test strip USE TO TEST BLOOD SUGAR THREE TIMES A DAY Blood-Glucose Meter (FREESTYLE SYSTEM KIT) monitoring kit 1 Each as needed. albuterol HFA (PROAIR HFA) 90 mcg/actuation inhaler Inhale 2 Puffs as instructed every 4 hours as needed. repaglinide (PRANDIN) 2 mg tablet Take 1-2 tablets each meal (Patient taking differently: Take 1-2 tablets three times daily before meal) insulin needles, DISPOSABLE, (PEN NEEDLE) 31 gauge x 5/16 ndle Use one needle per dose. 1 per day. Lancets lancets Test blood sugar(s) 3 times daily. Insulin Syringe-Needle U-100 (INSULIN SYRINGE) 1/2 mL 30 x 5/16 syrg Use 1 syringe for each dose 1/day No current facility-administered medications for this visit. Past Family History: FAMILY HISTORY Problem Relation Age of Onset - Colon Cancer Father in early 50s - Heart Father 55 [place] - Breast Cancer Mother in 50s - Diabetes Mother - Coronary Artery Disease Mother age early-mid 60's - Colon Cancer Paternal Grandmother - epilepsy [OTHER] Son - Breast Cancer Daughter - heart murmur [OTHER] Daughter Past Medical History: PAST MEDICAL HISTORY Diagnosis Date - Anxiety disorder in conditions classified elsewhere - Arthritis left knee with spur - Cardiomyopathy, nonischemic (HCC) 04/2013 - Degenerative joint disease involving multiple joints shoulders, right knee - Essential hypertension, benign - Family history of colon cancer 5y screening cycle - GERD (gastroesophageal reflux disease) - History of placement of internal cardiac defibrillator 09/03/2013 - Neuropathy (HCC) 02/09/2016 - Obesity, unspecified - Pure hypercholesterolemia - Restless leg syndrome 02/09/2016 - Snoring - Type II or unspecified type diabetes mellitus without mention of complication, not stated as uncontrolled - Vitamin D deficiency Past Surgical History: PAST SURGICAL HISTORY Procedure Laterality Date - APPENDECTOMY 2006 - COLONOSCOP W/ OR W/O [facility] SPEC 10/08/06 - COLONOSCOP W/ OR W/O [facility] SPEC 09/18/2011 Colonoscopy - COLONOSCOP W/ OR W/O [facility] SPEC 09/27/2016 Colonoscopy - DESTR LES BENIGN/ PREMAL 02/06/12 Ablation anal condyomata - EGD 09-01-15 - INSERT DUAL CHAMBER ICD 09/03/13 pacemaker/defibulator - KNEE SCOPE,DIAGNOSTIC right - LAPAROSCOPY, SURGICAL, APPENDECTOMY 10/22/06 - PAST SURGICAL HISTORY OF Right -14 ganglion cyst - PAST SURGICAL HISTORY OF Left 2016 cyst removed from left foot - TONSILLECTOMY AND ADENOIDECTOMY HX age 6 - TOTAL ABDOM HYSTERECTOMY 2005 menorrhagia/dysmenorrhea (negative for cancer) -- [place] Past Social History: Social History Substance Use Topics - Smoking status: Never Smoker - Smokeless tobacco: Never Used - Alcohol use No Comment: seldom The patient's family history is not related to the condition for which the patient is being seen PHYSICAL EXAM: FEMALE General Appearance: Alert, seated upright in chair Neuro: Gait normal: No Skin: No rashes, no lesions, no excoriations Respiratory Effort: Normal, no labored breathing PVR: 55 cc ASSESSMENT/PLAN: 1. Urge urinary incontinence - ICD9: 788.31, ICD10: N39.41 (primary diagnosis) - Urinary symptoms persistent with oxybutynin 15mg. Myrbetriq 50mg was not covered. - Discussed 3rd line treatment options with patient including botox injections and interstim. Patient would be a good candidate for interstim device. - Patient states with everything going on with her heart right now, she will hold off on follow up discussion with one of the female urology physicians for interstim. - Patient to continue decreased caffeine intake to help improve urinary symptoms - RTC when patient desires 3rd line treatment options 2. Nocturia - ICD9: 788.43, ICD10: R35.1 - See above. Re-iterated behavioral modifications from last visit. 3. Urinary frequency - ICD9: 788.41, ICD10: R35.0 - See above. Julee Elmore PA-C CNOV Observed: 10/30/2017 Status: COMPLETED Source: [place] 11:30 AM [facility] REPOSITORY Office Visit (UROLIN) MICHELLE THOMAS ([id number]) 1965 F Date Time Provider Department 10/30/17 11:30 AM JULEE ELMORE) EMILY During your visit today, we recorded the following information about you: Glendy Do Ma 10/30/2017 11:27 AM Addendum Please contact research nurse - Gabriella Buckley at [phone] for discussion about trial of OAB bladder stimulator. If you do not qualify, please call our office so we can follow up regarding an interstim. Glendy Do Ma 10/30/2017 12:31 PM Signed PVR 55ml by bladder scan Julee Elmore PA-C 10/30/2017 12:31 PM Signed [facility] FOR FEMALE PELVIC MEDICINE AND RECONSTRUCTIVE SURGERY HISTORY OF PRESENT ILLNESS: Patient is a 52 yo female who is here for follow up of OAB. She presents with her significant other. At last visit, myrbetriq 50mg was prescribed but not covered by insurance. The goal was to try dual therapy with myrbetriq and oxybutynin. Due to insurance issue, patient has only been on oxybutynin 15mg XL which she says is improving her urinary symptoms but they are still very bothersome. She is currently on lasix daily - leads her to have more frequent urination. Decreased her iced tea intake - no improvement DTF: ANDquot;way too many times per dayANDquot; NTF: 2x She reports she is having a number of issues with her heart recently and is followed by cardiology. Per HPI at last appointment 08/07/17: She was previously see by Dr. Hernandez in [place], most recently in 08/2016 for OAB. She had a negative hematuria workup with Dr. Hernandez in 2012 -she had one episode of gross hematuria after catheter removal (catheter placed while she was in the hospital for CHF). She is here today for OAB. She has had urgency and urge urinary incontinence. Pads: 0 pads Is currently having accidents every other day or so. She is currently taking oxybutynin 5mg BID. She states it is no longer helping like it once did. Nocturia: 3x On ANDquot;water pillANDquot; which she takes the morning. She also drinks a lot of fluids. Fluid Intake: 0 cups coffee per day ANDquot;too much teaANDquot; per day - caffeinated, (1 cup of sugar per gallon) 1 soda per day Uncertain of water intake. Disease Specificity: Acuity: Chronic Severity: Moderate, 5/10 Anatomic Site: Bladder, Laterality: N/A Underlying Condition/Causal Agent: Primary Associated Conditions/Manifestations: N/A Stress incontinence Yes Urge incontinence Yes Number of pads used: 0 UTI within the last 12 months No Lower urinary tract symptoms:Nocturia (3x per night) and Urgency GENERAL REVIEW OF SYSTEMS GENERAL: negative for malaise, significant weight loss and fever SKIN: Positive for skin issues RESPIRATORY: Negative for cough and shortness of breath CARDIOVASCULAR: Negative for chest pain or [place] + history of CHF GI: Negative for abdominal discomfort or fecal incontinence GENITOURINARY: See HPI ENDOCRINE:Positive for diabetes and thyroid issues NEURO: Negative for numbness, tingling, tremor, fainting, seizures MUSCULOSKELETAL: Positive for low back pain and joint pain BLOOD/LYMPHATIC: NO EASY BLEEDING, EASY BRUISING PSYCH: Positive for depression or anxiety. All other systems were reviewed and no new changes since last visit HISTORIES Present medications: Current Outpatient Prescriptions: Pramipexole 0.75 mg tablet TAKE 1 TABLET BY MOUTH AT BEDTIME oxybutynin ER (DITROPAN XL) 15 mg 24 hr Extended Rel Tab Take 1 tablet by mouth once daily. enalapril (VASOTEC) 2.5 mg tablet Take 1 tablet by mouth once daily. furosemide (LASIX) 40 mg tablet TAKE 1 TABLET DAILY spironolactone (ALDACTONE) 25 mg tablet TAKE 1 TABLET DAILY atorvastatin (LIPITOR) 10 mg tablet TAKE 1 TABLET DAILY carvedilol (COREG) 25 mg tablet TAKE 1 TABLET TWICE A DAY pantoprazole DR (PROTONIX) 40 mg tablet TAKE 1 TABLET BY MOUTH TWICE DAILY triamcinolone acetonide (KENALOG) 0.1 % ointment Apply to affected area on legs twice daily as needed. Use 2 weeks on 1 week off. Not for face, armpits or groin insulin glargine (BASAGLAR KWIKPEN) 100 unit/mL (3 mL) inpn Inject 21 Units subcutaneously every evening. metFORMIN (GLUCOPHAGE) 500 mg tablet Take by mouth. 2 pills in AM, 1 pill with lunch, and 2 pills with supper aspirin, enteric coated (ECOTRIN LOW STRENGTH) 81 mg EC tablet Take 1 tablet by mouth once daily. loratadine (CLARITIN) 10 mg tablet Take 1 tablet by mouth once daily. alogliptin 25 mg tab Take 1 tablet by mouth once daily. magnesium oxide (MAG-OX) 400 mg tablet Take 1 tablet by mouth twice daily. fluticasone (FLONASE) 50 mcg/actuation nasal spray Use 2 Sprays in each nostril once daily. ONETOUCH ULTRA TEST test strip USE TO TEST BLOOD SUGAR THREE TIMES A DAY Blood-Glucose Meter (FREESTYLE SYSTEM KIT) monitoring kit 1 Each as needed. albuterol HFA (PROAIR HFA) 90 mcg/actuation inhaler Inhale 2 Puffs as instructed every 4 hours as needed. repaglinide (PRANDIN) 2 mg tablet Take 1-2 tablets each meal (Patient taking differently: Take 1-2 tablets three times daily before meal) insulin needles, DISPOSABLE, (PEN NEEDLE) 31 gauge x 5/16ANDquot; ndle Use one needle per dose. 1 per day. Lancets lancets Test blood sugar(s) 3 times daily. Insulin Syringe-Needle U-100 (INSULIN SYRINGE) 1/2 mL 30 x 11/27ANDquot; syrg Use 1 syringe for each dose 1/day No current facility-administered medications for this visit. Past Family History: FAMILY HISTORY Problem Relation Age of Onset - Colon Cancer Father in early 50s - Heart Father 55 [place] - Breast Cancer Mother in 50s - Diabetes Mother - Coronary Artery Disease Mother age early-mid 60's - Colon Cancer Paternal Grandmother - epilepsy [OTHER] Son - Breast Cancer Daughter - heart murmur [OTHER] Daughter Past Medical History: PAST MEDICAL HISTORY Diagnosis Date - Anxiety disorder in conditions classified elsewhere - Arthritis left knee with spur - Cardiomyopathy, nonischemic (HCC) 04/2013 - Degenerative joint disease involving multiple joints shoulders, right knee - Essential hypertension, benign - Family history of colon cancer 5y screening cycle - GERD (gastroesophageal reflux disease) - History of placement of internal cardiac defibrillator 09/03/2013 - Neuropathy (HCC) 02/09/2016 - Obesity, unspecified - Pure hypercholesterolemia - Restless leg syndrome 02/09/2016 - Snoring - Type II or unspecified type diabetes mellitus without mention of complication, not stated as uncontrolled - Vitamin D deficiency Past Surgical History: PAST SURGICAL HISTORY Procedure Laterality Date - APPENDECTOMY 2006 - COLONOSCOP W/ OR W/O [facility] SPE[facility] 10/08/06 - COLONOSCOP W/ OR W/O [facility] SPEC 09/18/2011 Colonoscopy - COLONOSCOP W/ OR W/O [facility] SPEC 09/27/2016 Colonoscopy - DESTR LES BENIGN/ PREMAL 02/06/12 Ablation anal condyomata - EGD 09-01-15 - INSERT DUAL CHAMBER ICD 09/03/13 pacemaker/defibulator - KNEE SCOPE,DIAGNOSTIC right - LAPAROSCOPY, SURGICAL, APPENDECTOMY 10/22/06 - PAST SURGICAL HISTORY OF Right - ganglion cyst - PAST SURGICAL HISTORY OF Left 2016 cyst removed from left foot - TONSILLECTOMY AND ADENOIDECTOMY HX age 6 - TOTAL ABDOM HYSTERECTOMY 2005 menorrhagia/dysmenorrhea (negative for cancer) -- [place] Past Social History: Social History Substance Use Topics - Smoking status: Never Smoker - Smokeless tobacco: Never Used - Alcohol use No Comment: seldom The patient's family history is not related to the condition for which the patient is being seen PHYSICAL EXAM: FEMALE General Appearance: Alert, seated upright in chair Neuro: Gait normal: No Skin: No rashes, no lesions, no excoriations Respiratory Effort: Normal, no labored breathing PVR: 55 cc ASSESSMENT/PLAN: 1. Urge urinary incontinence - ICD9: 788.31, ICD10: N39.41 (primary diagnosis) - Urinary symptoms persistent with oxybutynin 15mg. Myrbetriq 50mg was not covered. - Discussed 3rd line treatment options with patient including botox injections and interstim. Patient would be a good candidate for interstim device. - Patient states with everything going on with her heart right now, she will hold off on follow up discussion with one of the female urology physicians for interstim. - Patient to continue decreased caffeine intake to help improve urinary symptoms - RTC when patient desires 3rd line treatment options 2. Nocturia - ICD9: 788.43, ICD10: R35.1 - See above. Re-iterated behavioral modifications from last visit. 3. Urinary frequency - ICD9: 788.41, ICD10: R35.0 - See above. TAAWNDA LovingC Referring Provider: SELF [[id number]] Allergies As of Date: 10/30/2017 Noted Allergy Reaction ADHESIVE TAPE (ROSINS) 03/27/2006 9 - Itching LATEX 01/10/2011 2 - Rash SIMVASTATIN 11/04/2012 14 - Other: See Comments Comments: myalgia Date Reviewed: 10/30/2017 Reviewed by: Julee Elmore (Pa) - Fully Assessed Reason for Visit: Follow Up [171] Primary Visit Diagnosis:Urge urinary incontinence [N39.41] Other Visit Diagnoses:Nocturia [R35.1] Urinary frequency [R35.0] Order(s):UA DIP, URINE (POC) [[id number]] Order #: [id number]. #:[id number] Prescriptions as of 10/30/2017 Sig: PRAMIPEXOLE 0.75 MG TABLET TAKE 1 TABLET BY MOUTH AT BED* OXYBUTYNIN CHLORIDE ER 15 MG * Take 1 tablet by mouth once d* ENALAPRIL MALEATE 2.5 MG TABL* Take 1 tablet by mouth once d* FUROSEMIDE 40 MG TABLET TAKE 1 TABLET DAILY SPIRONOLACTONE 25 MG TABLET TAKE 1 TABLET DAILY ATORVASTATIN 10 MG TABLET TAKE 1 TABLET DAILY CARVEDILOL 25 MG TABLET TAKE 1 TABLET TWICE A DAY PANTOPRAZOLE 40 MG TABLET,DEL* TAKE 1 TABLET BY MOUTH TWICE * TRIAMCINOLONE ACETONIDE 0.1 %* Apply to affected area on leg* INSULIN GLARGINE (U-100) 100 * Inject 21 Units subcutaneousl* METFORMIN 500 MG TABLET Take by mouth. 2 pills in AM* ASPIRIN 81 MG TABLET,DELAYED * Take 1 tablet by mouth once d* LORATADINE 10 MG TABLET Take 1 tablet by mouth once d* ALOGLIPTIN 25 MG TABLET Take 1 tablet by mouth once d* MAGNESIUM OXIDE 400 MG TABLET Take 1 tablet by mouth twice * FLUTICASONE 50 MCG/ACTUATION * Use 2 Sprays in each nostril * ONETOUCH ULTRA TEST STRIPS USE TO TEST BLOOD SUGAR THREE* BLOOD-GLUCOSE METER KIT 1 Each as needed. ALBUTEROL SULFATE HFA 90 MCG/* Inhale 2 Puffs as instructed * REPAGLINIDE 2 MG TABLET Take 1-2 tablets each meal Patient taking differently: Take 1-2 tablets three times * PEN NEEDLE, DIABETIC 31 GAUGE* Use one needle per dose. 1 pe* LANCETS Test blood sugar(s) 3 times d* INSULIN SYRINGE-NEEDLE U-100 * Use 1 syringe for each dose 1* Problem List As Of Date 10/30/2017 Noted Resolved Pure hypercholesterolemia [E78.00] Priority: A Diabetes mellitus (HCC) [E11.9] 08/16/2016 Priority: Moderate More... Essential hypertension, benign [I10] Priority: B Unspecified disorder of joint [719.9] 11/23/2016 More... 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 Cardiomyopathy, nonischemic [I42.8] INVALID FOR* Abnormality of gait [R26.9] INVALID FOR* DM (diabetes mellitus), type 2, uncontrolled w/*INVALID FOR*12/21/2015 Chronic nausea [R11.0] INVALID FOR*09/01/2015 Ganglion cyst of right foot [M67.471] INVALID FOR* ICD (implantable cardioverter-defibrillator) in*INVALID FOR*08/16/2016 Biventricular ICD (implantable cardioverter-def*INVALID FOR* Uncontrolled type 2 diabetes mellitus with diab*INVALID FOR* Neuropathy (HCC) [G62.9] INVALID FOR*08/16/2016 Restless leg syndrome [G25.81] INVALID FOR* Peroneal tendinitis [M76.70] INVALID FOR* Pain in joint, ankle and foot [M25.579] INVALID FOR* Other instructions from your clinician: Please contact research nurse - Gabriella Buckley at [phone] for discussion about trial of OAB bladder stimulator. If you do not qualify, please call our office so we can follow up regarding an interstim. Follow-up and Disposition History Recorded Encounter Status:Closed by JULEE ELMORE PA-C on 10/30/17 PROGRESS Observed: 10/30/2017 Status: COMPLETED Source: [place] 11:27 AM [facility] REPOSITORY HNO ID: [id number] Author: Glendy Do Ma Service: (none) Author Type: (none) Type: Progress Notes Filed: 10/30/2017 12:31 PM Note Text: PVR 55ml by bladder scan PROGRESS Observed: 10/24/2017 Status: COMPLETED Source: [place] 11:12 AM [facility] REPOSITORY HNO ID: [id number] Author: Cherry [place] Service: (none) Author Type: Shift Superintendent Type: Progress Notes Filed: 10/24/2017 11:13 AM Note Text: 30 day lifewatch monitor applied and instructions given. Patient verbalized understanding. Cherry Head MA CNNURSE Observed: 10/24/2017 Status: COMPLETED Source: [place] 11:00 AM [facility] REPOSITORY Nurse Visit (AGCARDWST) WILLIAMMICHELLE ([id number]) 1965 F Date Time Provider Department 10/24/17 11:00 AM NURSE CARD [facility] AGCARDWST During your visit today, we recorded the following information about you: Cherry Head MA 10/24/2017 11:13 AM Signed 30 day lifewatch monitor applied and instructions given. Patient verbalized understanding. Cherry Head MA Referring Provider: TOBIAS MARTINEZ [[id number]] Allergies As of Date: 10/24/2017 Noted Allergy Reaction ADHESIVE TAPE (ROSINS) 03/27/2006 9 - Itching LATEX 01/10/2011 2 - Rash SIMVASTATIN 11/04/2012 14 - Other: See Comments Comments: myalgia Date Reviewed: 10/24/2017 Reviewed by: Irena (Rn) AFRICA Dominguez - Fully Assessed Reason for Visit: Nurse Visit [792] Primary Visit Diagnosis:PAF (paroxysmal atrial fibrillation) ([facility]) [I48.0] Prescriptions as of 10/24/2017 Sig: PRAMIPEXOLE 0.75 MG TABLET TAKE 1 TABLET BY MOUTH AT BED* OXYBUTYNIN CHLORIDE ER 15 MG * Take 1 tablet by mouth once d* ENALAPRIL MALEATE 2.5 MG TABL* Take 1 tablet by mouth once d* FUROSEMIDE 40 MG TABLET TAKE 1 TABLET DAILY SPIRONOLACTONE 25 MG TABLET TAKE 1 TABLET DAILY ATORVASTATIN 10 MG TABLET TAKE 1 TABLET DAILY CARVEDILOL 25 MG TABLET TAKE 1 TABLET TWICE A DAY PANTOPRAZOLE 40 MG TABLET,DEL* TAKE 1 TABLET BY MOUTH TWICE * TRIAMCINOLONE ACETONIDE 0.1 %* Apply to affected area on leg* INSULIN GLARGINE (U-100) 100 * Inject 21 Units subcutaneousl* METFORMIN 500 MG TABLET Take by mouth. 2 pills in AM* ASPIRIN 81 MG TABLET,DELAYED * Take 1 tablet by mouth once d* LORATADINE 10 MG TABLET Take 1 tablet by mouth once d* ALOGLIPTIN 25 MG TABLET Take 1 tablet by mouth once d* MAGNESIUM OXIDE 400 MG TABLET Take 1 tablet by mouth twice * FLUTICASONE 50 MCG/ACTUATION * Use 2 Sprays in each nostril * ONETOUCH ULTRA TEST STRIPS USE TO TEST BLOOD SUGAR THREE* LANCETS Test blood sugar(s) 3 times d* BLOOD-GLUCOSE METER KIT 1 Each as needed. ALBUTEROL SULFATE HFA 90 MCG/* Inhale 2 Puffs as instructed * REPAGLINIDE 2 MG TABLET Take 1-2 tablets each meal Patient taking differently: Take 1-2 tablets three times * INSULIN SYRINGE-NEEDLE U-100 * Use 1 syringe for each dose 1* PEN NEEDLE, DIABETIC 31 GAUGE* Use one needle per dose. 1 pe* Problem List As Of Date 10/24/2017 Noted Resolved Pure hypercholesterolemia [E78.00] Priority: A Diabetes mellitus (HCC) [E11.9] 08/16/2016 Priority: Moderate More... Essential hypertension, benign [I10] Priority: B Unspecified disorder of joint [719.9] 11/23/2016 More... 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 Cardiomyopathy, nonischemic [I42.8] INVALID FOR* Abnormality of gait [R26.9] INVALID FOR* DM (diabetes mellitus), type 2, uncontrolled w/*INVALID FOR*12/21/2015 Chronic nausea [R11.0] INVALID FOR*09/01/2015 Ganglion cyst of right foot [M67.471] INVALID FOR* ICD (implantable cardioverter-defibrillator) in*INVALID FOR*08/16/2016 Biventricular ICD (implantable cardioverter-def*INVALID FOR* Uncontrolled type 2 diabetes mellitus with diab*INVALID FOR* Neuropathy (HCC) [G62.9] INVALID FOR*08/16/2016 Restless leg syndrome [G25.81] INVALID FOR* Peroneal tendinitis [M76.70] INVALID FOR* Pain in joint, ankle and foot [M25.579] INVALID FOR* Encounter Status:Closed by CHERRY HEAD MA on 10/24/17 PROGRESS Observed: 10/24/2017 Status: COMPLETED Source: [place] 10:34 AM [facility] REPOSIT[facility] HNO ID: [id number] Author: Tobias Martinez Service: (none) Author Type: Physician Type: Progress Notes Filed: 10/24/2017 5:54 PM Note Text: PERTINENT CARDIAC HISTORY Cardiomyopathy - nonischemic, ICD 2/14 DM HTN HL PAF - Chads-vasc 4 ADHERENCE TO GUIDELINES DARIUS-I or ARB for HF with prior LVEF<40 (NQF 0081) - met ASA or Plavix for ASHD (NQF 0067) - met Beta awilda for ASHD with prior [place] or prior LVEF<40 (NQF 0070) - met Beta awilda for HF with prior LVEF<40 (NQF 0083) - met DARIUS-I or ARB for ASHD with DM or prior LVEF<40 (NQF 0066) - met Statin therapy for ASHD or FHL or DM - met BMI documented and plan if >25 (NQF 0421) - lifestyle recommendation form Tobacco use screening and referral (NQF 0028) - lifestyle recommendation form Recommendation for whole food, plant based diet - lifestyle recommendation form CLINICAL IMPRESSION/PLAN: Michelle Thomas is having palpitations which need to be further characterized. Prior event monitor is too outdated to be of any clinical use and charges will be canceled and the device discarded. She will have a new monitor through [employer]. If there is evidence of atrial fibrillation, she will be started on anticoagulation. I encouraged her to increase her exercise and get her weight under better control. She'll be referred for device clinic check in [place], at her request. She needs to establish with clay digger for her ICD follow-up. I will see her in 6 months or as needed. If there is increased chest pain or shortness of breath, she has been advised to contact me. Written and verbal health teaching given to patient, patient verbalizes understanding and agrees with treatment plan. DIAGNOSIS FOR VISIT: PAF Cardiomyopathy HISTORY OF PRESENT ILLNESS Michelle Thomas returns for follow-up of multiple cardiac issues, as noted above. She reports that she never heard back from her event monitor. Apparently she turned in the monitor, but it is has been sitting in [place] for the last 6 months and was never scanned. She's had no chest discomfort. She's had occasional palpitations which are fairly brief. She's had no orthopnea, edema, syncope, TIAs, amaurosis or claudication. She's had some weight gain related to her diabetes. Her most recent device clinic check was in February, ALLERGIES: ALLERGIES Allergen Reactions - Adhesive Tape (Natty* Itching - Latex Rash - Simvastatin Other: See Comments myalgia CURRENT OUTPATIENT MEDICATIONS: Pramipexole 0.75 mg tablet TAKE 1 TABLET BY MOUTH AT BEDTIME oxybutynin ER (DITROPAN XL) 15 mg 24 hr Extended Rel Tab Take 1 tablet by mouth once daily. enalapril (VASOTEC) 2.5 mg tablet Take 1 tablet by mouth once daily. furosemide (LASIX) 40 mg tablet TAKE 1 TABLET DAILY spironolactone (ALDACTONE) 25 mg tablet TAKE 1 TABLET DAILY atorvastatin (LIPITOR) 10 mg tablet TAKE 1 TABLET DAILY carvedilol (COREG) 25 mg tablet TAKE 1 TABLET TWICE A DAY pantoprazole DR (PROTONIX) 40 mg tablet TAKE 1 TABLET BY MOUTH TWICE DAILY triamcinolone acetonide (KENALOG) 0.1 % ointment Apply to affected area on legs twice daily as needed. Use 2 weeks on 1 week off. Not for face, armpits or groin insulin glargine (BASAGLAR KWIKPEN) 100 unit/mL (3 mL) inpn Inject 21 Units subcutaneously every evening. metFORMIN (GLUCOPHAGE) 500 mg tablet Take by mouth. 2 pills in AM, 1 pill with lunch, and 2 pills with supper aspirin, enteric coated (ECOTRIN LOW STRENGTH) 81 mg EC tablet Take 1 tablet by mouth once daily. loratadine (CLARITIN) 10 mg tablet Take 1 tablet by mouth once daily. alogliptin 25 mg tab Take 1 tablet by mouth once daily. magnesium oxide (MAG-OX) 400 mg tablet Take 1 tablet by mouth twice daily. fluticasone (FLONASE) 50 mcg/actuation nasal spray Use 2 Sprays in each nostril once daily. daPulse ULTRA TEST test strip USE TO TEST BLOOD SUGAR THREE TIMES A DAY Lancets lancets Test blood sugar(s) 3 times daily. Blood-Glucose Meter (FREESTYLE SYSTEM KIT) monitoring kit 1 Each as needed. albuterol HFA (PROAIR HFA) 90 mcg/actuation inhaler Inhale 2 Puffs as instructed every 4 hours as needed. repaglinide (PRANDIN) 2 mg tablet Take 1-2 tablets each meal Insulin Syringe-Needle U-100 (INSULIN SYRINGE) 1/2 mL 30 x 5/16 syrg Use 1 syringe for each dose 1/day insulin needles, DISPOSABLE, (PEN NEEDLE) 31 gauge x 5/16 ndle Use one needle per dose. 1 per day. PHYSICAL EXAMINATION: VITAL SIGNS: BP 113/70 Pulse 80 Ht 5' 9 (1.75m) Wt 207 lb 8 oz (94.1kg) BMI 30.63 kg/(m2). Chest: Clear to percussion and auscultation. Trachea is midline. Air entry is equal. Cardiac: Regular rhythm. S1 and S2 are normal. PMI is nondisplaced. There is a soft systolic ejection murmur. Carotids are brisk without bruits. JVP is less than 10 cm. Abdomen: Soft and nontender. There are no pulsatile masses or bruits. No liver enlargement. Bowel sounds are active. Extremities: Trace edema. Pulses are intact and symmetrical. Recent labs were reviewed. LDL was 61. Most recent ICD check showed rare atrial high rates. Egrams reportedly showed bursts of atrial fibrillation up to 50 minutes, but EGM's were not saved and she has had no previous episodes of this. She is overdue device clinic check. Electronically Signed: Tobias Martinez MD October 24, 2017 10:34 AM CC: Mello Ding MD CNOV Observed: 10/24/2017 Status: COMPLETED Source: [place] 10:00 AM [facility] REPOSIT[facility] Office Visit (AGCARDWST) MICHELLE THOMAS ([id number]) 1965 F Date Time Provider Department 10/24/17 10:00 AM TOBIAS MARTINEZ AGCARDWST During your visit today, we recorded the following information about you: Pulse Blood pressure Weight Height 80/minute 113/70 94.1 kg 1.753 m Tobias Martinez MD 10/24/2017 5:54 PM Signed PERTINENT CARDIAC HISTORY Cardiomyopathy - nonischemic, ICD 2/14 DM HTN HL PAF - Chads-vasc 4 ADHERENCE TO GUIDELINES DARIUS-I or ARB for HF with prior LVEFANDlt;40 (NQF 0081) - met ASA or Plavix for ASHD (NQF 0067) - met Beta awilda for ASHD with prior [place] or prior LVEFANDlt;40 (NQF 0070) - met Beta awilda for HF with prior LVEFANDlt;40 (NQF 0083) - met DARIUS-I or ARB for ASHD with DM or prior LVEFANDlt;40 (NQF 0066) - met Statin therapy for ASHD or FHL or DM - met BMI documented and plan if ANDgt;25 (NQF 0421) - lifestyle recommendation form Tobacco use screening and referral (NQF 0028) - lifestyle recommendation form Recommendation for whole food, plant based diet - lifestyle recommendation form CLINICAL IMPRESSION/PLAN: Michelle Thomas is having palpitations which need to be further characterized. Prior event monitor is too outdated to be of any clinical use and charges will be canceled and the device discarded. She will have a new monitor through [employer]. If there is evidence of atrial fibrillation, she will be started on anticoagulation. I encouraged her to increase her exercise and get her weight under better control. She'll be referred for device clinic check in [place], at her request. She needs to establish with clay digger for her ICD follow-up. I will see her in 6 months or as needed. If there is increased chest pain or shortness of breath, she has been advised to contact me. Written and verbal health teaching given to patient, patient verbalizes understanding and agrees with treatment plan. DIAGNOSIS FOR VISIT: PAF Cardiomyopathy HISTORY OF PRESENT ILLNESS Michelle Thomas returns for follow-up of multiple cardiac issues, as noted above. She reports that she never heard back from her event monitor. Apparently she turned in the monitor, but it is has been sitting in [place] for the last 6 months and was never scanned. She's had no chest discomfort. She's had occasional palpitations which are fairly brief. She's had no orthopnea, edema, syncope, TIAs, amaurosis or claudication. She's had some weight gain related to her diabetes. Her most recent device clinic check was in February, ALLERGIES: ALLERGIES Allergen Reactions - Adhesive Tape (Natty* Itching - Latex Rash - Simvastatin Other: See Comments myalgia CURRENT OUTPATIENT MEDICATIONS: Pramipexole 0.75 mg tablet TAKE 1 TABLET BY MOUTH AT BEDTIME oxybutynin ER (DITROPAN XL) 15 mg 24 hr Extended Rel Tab Take 1 tablet by mouth once daily. enalapril (VASOTEC) 2.5 mg tablet Take 1 tablet by mouth once daily. furosemide (LASIX) 40 mg tablet TAKE 1 TABLET DAILY spironolactone (ALDACTONE) 25 mg tablet TAKE 1 TABLET DAILY atorvastatin (LIPITOR) 10 mg tablet TAKE 1 TABLET DAILY carvedilol (COREG) 25 mg tablet TAKE 1 TABLET TWICE A DAY pantoprazole DR (PROTONIX) 40 mg tablet TAKE 1 TABLET BY MOUTH TWICE DAILY triamcinolone acetonide (KENALOG) 0.1 % ointment Apply to affected area on legs twice daily as needed. Use 2 weeks on 1 week off. Not for face, armpits or groin insulin glargine (BASAGLAR KWIKPEN) 100 unit/mL (3 mL) inpn Inject 21 Units subcutaneously every evening. metFORMIN (GLUCOPHAGE) 500 mg tablet Take by mouth. 2 pills in AM, 1 pill with lunch, and 2 pills with supper aspirin, enteric coated (ECOTRIN LOW STRENGTH) 81 mg EC tablet Take 1 tablet by mouth once daily. loratadine (CLARITIN) 10 mg tablet Take 1 tablet by mouth once daily. alogliptin 25 mg tab Take 1 tablet by mouth once daily. magnesium oxide (MAG-OX) 400 mg tablet Take 1 tablet by mouth twice daily. fluticasone (FLONASE) 50 mcg/actuation nasal spray Use 2 Sprays in each nostril once daily. [employer] LTDTOUCH ULTRA TEST test strip USE TO TEST BLOOD SUGAR THREE TIMES A DAY Lancets lancets Test blood sugar(s) 3 times daily. Blood-Glucose Meter (TSSI SystemsSTYLE SYSTEM KIT) monitoring kit 1 Each as needed. albuterol HFA (PROAIR HFA) 90 mcg/actuation inhaler Inhale 2 Puffs as instructed every 4 hours as needed. repaglinide (PRANDIN) 2 mg tablet Take 1-2 tablets each meal Insulin Syringe-Needle U-100 (INSULIN SYRINGE) 1/2 mL 30 x 5/16ANDquot; syrg Use 1 syringe for each dose 1/day insulin needles, DISPOSABLE, (PEN NEEDLE) 31 gauge x 5/16ANDquot; ndle Use one needle per dose. 1 per day. PHYSICAL EXAMINATION: VITAL SIGNS: BP 113/70 Pulse 80 Ht 5' 9ANDquot; (1.75m) Wt 207 lb 8 oz (94.1kg) BMI 30.63 kg/(m2). Chest: Clear to percussion and auscultation. Trachea is midline. Air entry is equal. Cardiac: Regular rhythm. S1 and S2 are normal. PMI is nondisplaced. There is a soft systolic ejection murmur. Carotids are brisk without bruits. JVP is less than 10 cm. Abdomen: Soft and nontender. There are no pulsatile masses or bruits. No liver enlargement. Bowel sounds are active. Extremities: Trace edema. Pulses are intact and symmetrical. Recent labs were reviewed. LDL was 61. Most recent ICD check showed rare atrial high rates. Egrams reportedly showed bursts of atrial fibrillation up to 50 minutes, but EGM's were not saved and she has had no previous episodes of this. She is overdue device clinic check. Electronically Signed: Tobias Martinez MD October 24, 2017 10:34 AM CC: MD Tobias Porter MD 10/24/2017 10:35 AM Signed LIFESTYLE CHANGE A healthy lifestyle is the most important component of your overall treatment plan. Please give serious thought to the following areas and commit to making studio sales associate changes. EAT A WHOLE FOOD, PLANT BASED DIET The nutrition your body gets is more important than the medicine you take. What matters most is the overall way you eat. We encourage you to minimize the use of animal products (which include dairy and all meats except fatty fish) and use whole, unprocessed plant foods to provide your protein, vitamins and other nutrients. We have a lot of information to share with you on this topic. We also hold Shared Medical Appointments, where you can come visit with Dr. Martinez in the company of other patients and spend over an hour talking about the challenges of changing the way you eat. This is not a ANDquot;dietANDquot;. It is a way of life that you will keep with you. EXERCISE REGULARLY It is not important to spend hours in the gym, lifting weights and perspiring heavily. A total of 2-3 hours per week of aerobic (causing you to be moderately short of breath) exercise is sufficient to improve your health. Talk to us before you begin a new exercise program, if you have heart disease or experience shortness of breath or chest pain. REDUCE STRESS Chronic emotional and physical stress leads to disease. Ways of reducing stress include meditation, visualization, prayer, yoga and other forms of relaxation therapy. Consistency is the jefferson. Find a technique that works for you and do it every day. CULTIVATE RELATIONSHIPS Loneliness and isolation have a major negative impact on health. Seek out others who can love, care for and nurture you. Avoid hurtful relationships. MAINTAIN IDEAL BODY WEIGHT The best way to do this is to do all the things above. Our bodies naturally find the right weight if we keep moving and feed ourselves the right food. If your BMI is greater than 25, we strongly recommend a referral to a weight management program. Please speak to us or your family physician about available programs. AVOID NICOTINE IN ALL FORMS This includes all tobacco products, whether chewed, smoked, vaped, or rubbed on the skin. Smoking cessation programs, which can make use of tobacco substitutes, medications to suppress cravings and behavior management, are available. Please contact your family physician about programs in your area. Referring Provider: TOBIAS MARTINEZ [[id number]] Allergies As of Date: 10/24/2017 Noted Allergy Reaction ADHESIVE TAPE (ROSINS) 03/27/2006 9 - Itching LATEX 01/10/2011 2 - Rash SIMVASTATIN 11/04/2012 14 - Other: See Comments Comments: myalgia Date Reviewed: 10/24/2017 Reviewed by: Irena (Rn) [place]FR[place] Dominguez - Fully Assessed Reason for Visit: Established Patient [175] Primary Visit Diagnosis:PAF (paroxysmal atrial fibrillation) (HCC) [I48.0] Other Visit Diagnosis:Cardiomyopathy, nonischemic (HCC) [I42.8] Order(s):CONSULT TO DEVICE CLINIC (AG) [1792225] Order #: [id number]: 1 EVENT MONITOR [[id number]] Order #: [id number]: 1 CONSULT TO ELECTROPHYSIOLOGY [[id number]] Order #: [id number]: 1 Prescriptions as of 10/24/2017 Sig: PRAMIPEXOLE 0.75 MG TABLET TAKE 1 TABLET BY MOUTH AT BED* OXYBUTYNIN CHLORIDE ER 15 MG * Take 1 tablet by mouth once d* ENALAPRIL MALEATE 2.5 MG TABL* Take 1 tablet by mouth once d* FUROSEMIDE 40 MG TABLET TAKE 1 TABLET DAILY SPIRONOLACTONE 25 MG TABLET TAKE 1 TABLET DAILY ATORVASTATIN 10 MG TABLET TAKE 1 TABLET DAILY CARVEDILOL 25 MG TABLET TAKE 1 TABLET TWICE A DAY PANTOPRAZOLE 40 MG TABLET,DEL* TAKE 1 TABLET BY MOUTH TWICE * TRIAMCINOLONE ACETONIDE 0.1 %* Apply to affected area on leg* INSULIN GLARGINE (U-100) 100 * Inject 21 Units subcutaneousl* METFORMIN 500 MG TABLET Take by mouth. 2 pills in AM* ASPIRIN 81 MG TABLET,DELAYED * Take 1 tablet by mouth once d* LORATADINE 10 MG TABLET Take 1 tablet by mouth once d* ALOGLIPTIN 25 MG TABLET Take 1 tablet by mouth once d* MAGNESIUM OXIDE 400 MG TABLET Take 1 tablet by mouth twice * FLUTICASONE 50 MCG/ACTUATION * Use 2 Sprays in each nostril * ONETOUCH ULTRA TEST STRIPS USE TO TEST BLOOD SUGAR THREE* LANCETS Test blood sugar(s) 3 times d* BLOOD-GLUCOSE METER KIT 1 Each as needed. ALBUTEROL SULFATE HFA 90 MCG/* Inhale 2 Puffs as instructed * REPAGLINIDE 2 MG TABLET Take 1-2 tablets each meal Patient taking differently: Take 1-2 tablets three times * INSULIN SYRINGE-NEEDLE U-100 * Use 1 syringe for each dose 1* PEN NEEDLE, DIABETIC 31 GAUGE* Use one needle per dose. 1 pe* Problem List As Of Date 10/24/2017 Noted Resolved Pure hypercholesterolemia [E78.00] Priority: A Diabetes mellitus (HCC) [E11.9] 08/16/2016 Priority: Moderate More... Essential hypertension, benign [I10] Priority: B Unspecified disorder of joint [719.9] 11/23/2016 More... 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 Cardiomyopathy, nonischemic [I42.8] INVALID FOR* Abnormality of gait [R26.9] INVALID FOR* DM (diabetes mellitus), type 2, uncontrolled w/*INVALID FOR*12/21/2015 Chronic nausea [R11.0] INVALID FOR*09/01/2015 Ganglion cyst of right foot [M67.471] INVALID FOR* ICD (implantable cardioverter-defibrillator) in*INVALID FOR*08/16/2016 Biventricular ICD (implantable cardioverter-def*INVALID FOR* Uncontrolled type 2 diabetes mellitus with diab*INVALID FOR* Neuropathy (HCC) [G62.9] INVALID FOR*08/16/2016 Restless leg syndrome [G25.81] INVALID FOR* Peroneal tendinitis [M76.70] INVALID FOR* Pain in joint, ankle and foot [M25.579] INVALID FOR* Other instructions from your clinician: LIFESTYLE CHANGE A healthy lifestyle is the most important component of your overall treatment plan. Please give serious thought to the following areas and commit to making studio sales associate changes. EAT A WHOLE FOOD, PLANT BASED DIET The nutrition your body gets is more important than the medicine you take. What matters most is the overall way you eat. We encourage you to minimize the use of animal products (which include dairy and all meats except fatty fish) and use whole, unprocessed plant foods to provide your protein, vitamins and other nutrients. We have a lot of information to share with you on this topic. We also hold Shared Medical Appointments, where you can come visit with Dr. Martinez in the company of other patients and spend over an hour talking about the challenges of changing the way you eat. This is not a diet. It is a way of life that you will keep with you. EXERCISE REGULARLY It is not important to spend hours in the gym, lifting weights and perspiring heavily. A total of 2-3 hours per week of aerobic (causing you to be moderately short of breath) exercise is sufficient to improve your health. Talk to us before you begin a new exercise program, if you have heart disease or experience shortness of breath or chest pain. REDUCE STRESS Chronic emotional and physical stress leads to disease. Ways of reducing stress include meditation, visualization, prayer, yoga and other forms of relaxation therapy. Consistency is the jefferson. Find a technique that works for you and do it every day. CULTIVATE RELATIONSHIPS Loneliness and isolation have a major negative impact on health. Seek out others who can love, care for and nurture you. Avoid hurtful relationships. MAINTAIN IDEAL BODY WEIGHT The best way to do this is to do all the things above. Our bodies naturally find the right weight if we keep moving and feed ourselves the right food. If your BMI is greater than 25, we strongly recommend a referral to a weight management program. Please speak to us or your family physician about available programs. AVOID NICOTINE IN ALL FORMS This includes all tobacco products, whether chewed, smoked, vaped, or rubbed on the skin. Smoking cessation programs, which can make use of tobacco substitutes, medications to suppress cravings and behavior management, are available. Please contact your family physician about programs in your area. Follow-up and Disposition History Recorded Encounter Status:Closed by TOBIAS MARTINEZ MD on 10/24/17 PROGRESS Observed: 10/24/2017 Status: COMPLETED Source: [place] 9:59 AM [facility] [place] [facility] ID: [id number] Author: Yesenia Lowe Service: (none) Author Type: Physician Type: Progress Notes Filed: 10/24/2017 10:08 AM Note Text: Follow up podiatric office visit: This 51 year old diabetic presents for follow up of various masses. B/l feet both doing OK. L side better since injection. Really helped. New small lesion top of L foot. + diabetes. +hx of infections and slow healng wounds. Sugar 300 mg/dL this am. PAIN EVALUATION 10/23/2017 Pain Score: 7 Pain Location: Foot-Left Description: Sharp Duration Amount of Time: - ongoing Frequency: Intermittent Intervention: Reposition;Modify dressing type;Modify dressing application;Medication Hemoglobin A1C (%) Date Value 09/23/2017 7.2 03/28/2017 6.5 ) PAST MEDICAL HISTORY Diagnosis Date - Anxiety disorder in conditions classified elsewhere - Arthritis left knee with spur - Cardiomyopathy, nonischemic (HCC) 04/2013 - Degenerative joint disease involving multiple joints shoulders, right knee - Essential hypertension, benign - Family history of colon cancer 5y screening cycle - GERD (gastroesophageal reflux disease) - History of placement of internal cardiac defibrillator 09/03/2013 - Neuropathy (HCC) 02/09/2016 - Obesity, unspecified - Pure hypercholesterolemia - Restless leg syndrome 02/09/2016 - Snoring - Type II or unspecified type diabetes mellitus without mention of complication, not stated as uncontrolled - Vitamin D deficiency Current Outpatient Prescriptions: Pramipexole 0.75 mg tablet TAKE 1 TABLET BY MOUTH AT BEDTIME oxybutynin ER (DITROPAN XL) 15 mg 24 hr Extended Rel Tab Take 1 tablet by mouth once daily. enalapril (VASOTEC) 2.5 mg tablet Take 1 tablet by mouth once daily. furosemide (LASIX) 40 mg tablet TAKE 1 TABLET DAILY spironolactone (ALDACTONE) 25 mg tablet TAKE 1 TABLET DAILY atorvastatin (LIPITOR) 10 mg tablet TAKE 1 TABLET DAILY carvedilol (COREG) 25 mg tablet TAKE 1 TABLET TWICE A DAY pantoprazole DR (PROTONIX) 40 mg tablet TAKE 1 TABLET BY MOUTH TWICE DAILY triamcinolone acetonide (KENALOG) 0.1 % ointment Apply to affected area on legs twice daily as needed. Use 2 weeks on 1 week off. Not for face, armpits or groin insulin glargine (BASAGLAR KWIKPEN) 100 unit/mL (3 mL) inpn Inject 21 Units subcutaneously every evening. metFORMIN (GLUCOPHAGE) 500 mg tablet Take by mouth. 2 pills in AM, 1 pill with lunch, and 2 pills with supper aspirin, enteric coated (ECOTRIN LOW STRENGTH) 81 mg EC tablet Take 1 tablet by mouth once daily. loratadine (CLARITIN) 10 mg tablet Take 1 tablet by mouth once daily. alogliptin 25 mg tab Take 1 tablet by mouth once daily. magnesium oxide (MAG-OX) 400 mg tablet Take 1 tablet by mouth twice daily. fluticasone (FLONASE) 50 mcg/actuation nasal spray Use 2 Sprays in each nostril once daily. ONETOUCH ULTRA TEST test strip USE TO TEST BLOOD SUGAR THREE TIMES A DAY Lancets lancets Test blood sugar(s) 3 times daily. Blood-Glucose Meter (FREESTYLE SYSTEM KIT) monitoring kit 1 Each as needed. albuterol HFA (PROAIR HFA) 90 mcg/actuation inhaler Inhale 2 Puffs as instructed every 4 hours as needed. repaglinide (PRANDIN) 2 mg tablet Take 1-2 tablets each meal (Patient taking differently: Take 1-2 tablets three times daily before meal) Insulin Syringe-Needle U-100 (INSULIN SYRINGE) 1/2 mL 30 x 5/16 syrg Use 1 syringe for each dose 1/day insulin needles, DISPOSABLE, (PEN NEEDLE) 31 gauge x 5/16 ndle Use one needle per dose. 1 per day. No current facility-administered medications for this visit. ALLERGIES Allergen Reactions - Adhesive Tape (Natty* Itching - Latex Rash - Simvastatin Other: See Comments myalgia Objective: Constitutional: Pt is a well developed 52 year old female who is alert, oriented, cooperative and in no apparent distress. Eyes: Following during examination. No redness or drainage. Respiratory: RR normal and nonlabored. Even breathing. No evidence of distress. Psychology: Patient is engaged during conversation. Normal affect and mood. Does not appear depressed or anxious. Palpable DP and PT pulses. Protective and vibratory sensation intact. Nails 1-5 b/l are within normal limits. Negative maceration to webspaces with negative openings in skin noted b/l. No ulcerations, lesions or rashes noted. Hyperkeratosis not seen. Prominent, tender 5th met base b/l With mild swelling. Dorsal L foot with small mobile tender mass again 0.4 cm x 0.4 cm. No redness or warmth. No drainage. No lymphadenopathy. No lymphangitis. Patient has no pain to palpation of L calf. Negative Campos's test. Assessment: New ganglion dorsal L foot s/p L stm x 2 and exostectomy and R stm excision x1 Bursitis L 5th met base Peroneal tendonitis L Diabetes controlled 2 neuropathy Cardiomyopathy Can't take NSAID Plan: History and physical examination done today. Doing better since injection Diabetic shoes are new and offloading appropriately. RTC 6 months. If continuing to be painful consider another injection since helpful lately. Yesenia Hild, DPM CNOV Observed: 10/23/2017 Status: COMPLETED Source: [place] 3:20 PM [facility] [place] [place] Office Visit (PODIMM) MICHELLE THOMAS ([id number]) 1965 F Date Time Provider Department 10/23/17 3:20 PM YESENIA LOWE PODIMM During your visit today, we recorded the following information about you: Georgette Nicholson Ma 10/23/2017 4:05 PM Signed Patient presents with: Follow Up: Left foot pain Yesenia Lowe DPM 10/24/2017 10:08 AM Signed Follow up podiatric office visit: This 51 year old diabetic presents for follow up of various masses. B/l feet both doing OK. L side better since injection. Really helped. New small lesion top of L foot. + diabetes. +hx of infections and slow healng wounds. Sugar 300 mg/dL this am. PAIN EVALUATION 10/23/2017 Pain Score: 7 Pain Location: Foot-Left Description: Sharp Duration Amount of Time: - ongoing Frequency: Intermittent Intervention: Reposition;Modify dressing type;Modify dressing application;Medication Hemoglobin A1C (%) Date Value 09/23/2017 7.2 03/28/2017 6.5 ) PAST MEDICAL HISTORY Diagnosis Date - Anxiety disorder in conditions classified elsewhere - Arthritis left knee with spur - Cardiomyopathy, nonischemic ([facility]) 04/2013 - Degenerative joint disease involving multiple joints shoulders, right knee - Essential hypertension, benign - Family history of colon cancer 5y screening cycle - GERD (gastroesophageal reflux disease) - History of placement of internal cardiac defibrillator 09/03/2013 - Neuropathy ([facility]) 02/09/2016 - Obesity, unspecified - Pure hypercholesterolemia - Restless leg syndrome 02/09/2016 - Snoring - Type II or unspecified type diabetes mellitus without mention of complication, not stated as uncontrolled - Vitamin D deficiency Current Outpatient Prescriptions: Pramipexole 0.75 mg tablet TAKE 1 TABLET BY MOUTH AT BEDTIME oxybutynin ER (DITROPAN XL) 15 mg 24 hr Extended Rel Tab Take 1 tablet by mouth once daily. enalapril (VASOTEC) 2.5 mg tablet Take 1 tablet by mouth once daily. furosemide (LASIX) 40 mg tablet TAKE 1 TABLET DAILY spironolactone (ALDACTONE) 25 mg tablet TAKE 1 TABLET DAILY atorvastatin (LIPITOR) 10 mg tablet TAKE 1 TABLET DAILY carvedilol (COREG) 25 mg tablet TAKE 1 TABLET TWICE A DAY pantoprazole DR (PROTONIX) 40 mg tablet TAKE 1 TABLET BY MOUTH TWICE DAILY triamcinolone acetonide (KENALOG) 0.1 % ointment Apply to affected area on legs twice daily as needed. Use 2 weeks on 1 week off. Not for face, armpits or groin insulin glargine (BASAGLAR KWIKPEN) 100 unit/mL (3 mL) inpn Inject 21 Units subcutaneously every evening. metFORMIN (GLUCOPHAGE) 500 mg tablet Take by mouth. 2 pills in AM, 1 pill with lunch, and 2 pills with supper aspirin, enteric coated (ECOTRIN LOW STRENGTH) 81 mg EC tablet Take 1 tablet by mouth once daily. loratadine (CLARITIN) 10 mg tablet Take 1 tablet by mouth once daily. alogliptin 25 mg tab Take 1 tablet by mouth once daily. magnesium oxide (MAG-OX) 400 mg tablet Take 1 tablet by mouth twice daily. fluticasone (FLONASE) 50 mcg/actuation nasal spray Use 2 Sprays in each nostril once daily. ONETOUCH ULTRA TEST test strip USE TO TEST BLOOD SUGAR THREE TIMES A DAY Lancets lancets Test blood sugar(s) 3 times daily. Blood-Glucose Meter (FREESTYLE SYSTEM KIT) monitoring kit 1 Each as needed. albuterol HFA (PROAIR HFA) 90 mcg/actuation inhaler Inhale 2 Puffs as instructed every 4 hours as needed. repaglinide (PRANDIN) 2 mg tablet Take 1-2 tablets each meal (Patient taking differently: Take 1-2 tablets three times daily before meal) Insulin Syringe-Needle U-100 (INSULIN SYRINGE) 1/2 mL 30 x 5/16ANDquot; syrg Use 1 syringe for each dose 1/day insulin needles, DISPOSABLE, (PEN NEEDLE) 31 gauge x 5/16ANDquot; ndle Use one needle per dose. 1 per day. No current facility-administered medications for this visit. ALLERGIES Allergen Reactions - Adhesive Tape (Natty* Itching - Latex Rash - Simvastatin Other: See Comments myalgia Objective: Constitutional: Pt is a well developed 52 year old female who is alert, oriented, cooperative and in no apparent distress. Eyes: Following during examination. No redness or drainage. Respiratory: RR normal and nonlabored. Even breathing. No evidence of distress. Psychology: Patient is engaged during conversation. Normal affect and mood. Does not appear depressed or anxious. Palpable DP and PT pulses. Protective and vibratory sensation intact. Nails 1-5 b/l are within normal limits. Negative maceration to webspaces with negative openings in skin noted b/l. No ulcerations, lesions or rashes noted. Hyperkeratosis not seen. Prominent, tender 5th met base b/l With mild swelling. Dorsal L foot with small mobile tender mass again 0.4 cm x 0.4 cm. No redness or warmth. No drainage. No lymphadenopathy. No lymphangitis. Patient has no pain to palpation of L calf. Negative Campos's test. Assessment: New ganglion dorsal L foot s/p L stm x 2 and exostectomy and R stm excision x1 Bursitis L 5th met base Peroneal tendonitis L Diabetes controlled 2 neuropathy Cardiomyopathy Can't take NSAID Plan: History and physical examination done today. Doing better since injection Diabetic shoes are new and offloading appropriately. RTC 6 months. If continuing to be painful consider another injection since helpful lately. Yesenia Lowe DPM Referring Provider: SELF [[id number]] Allergies As of Date: 10/23/2017 Noted Allergy Reaction ADHESIVE TAPE (ROSINS) 03/27/2006 9 - Itching LATEX 01/10/2011 2 - Rash SIMVASTATIN 11/04/2012 14 - Other: See Comments Comments: myalgia Date Reviewed: 10/23/2017 Reviewed by: Georgette Nicholson Ma - Fully Assessed Reason for Visit: Follow Up [171] Cmt: Left foot pain Reason For Visit History Recorded Primary Visit Diagnosis:Soft tissue mass [M79.9] Other Visit Diagnosis:Well controlled type 2 diabetes mellitus with neurological manifestations (HCC) [E11.49] Prescriptions as of 10/23/2017 Sig: PRAMIPEXOLE 0.75 MG TABLET TAKE 1 TABLET BY MOUTH AT BED* OXYBUTYNIN CHLORIDE ER 15 MG * Take 1 tablet by mouth once d* ENALAPRIL MALEATE 2.5 MG TABL* Take 1 tablet by mouth once d* FUROSEMIDE 40 MG TABLET TAKE 1 TABLET DAILY SPIRONOLACTONE 25 MG TABLET TAKE 1 TABLET DAILY ATORVASTATIN 10 MG TABLET TAKE 1 TABLET DAILY CARVEDILOL 25 MG TABLET TAKE 1 TABLET TWICE A DAY PANTOPRAZOLE 40 MG TABLET,DEL* TAKE 1 TABLET BY MOUTH TWICE * TRIAMCINOLONE ACETONIDE 0.1 %* Apply to affected area on leg* INSULIN GLARGINE (U-100) 100 * Inject 21 Units subcutaneousl* METFORMIN 500 MG TABLET Take by mouth. 2 pills in AM* ASPIRIN 81 MG TABLET,DELAYED * Take 1 tablet by mouth once d* LORATADINE 10 MG TABLET Take 1 tablet by mouth once d* ALOGLIPTIN 25 MG TABLET Take 1 tablet by mouth once d* MAGNESIUM OXIDE 400 MG TABLET Take 1 tablet by mouth twice * FLUTICASONE 50 MCG/ACTUATION * Use 2 Sprays in each nostril * daPulse ULTRA TEST STRIPS USE TO TEST BLOOD SUGAR THREE* LANCETS Test blood sugar(s) 3 times d* BLOOD-GLUCOSE METER KIT 1 Each as needed. ALBUTEROL SULFATE HFA 90 MCG/* Inhale 2 Puffs as instructed * REPAGLINIDE 2 MG TABLET Take 1-2 tablets each meal Patient taking differently: Take 1-2 tablets three times * INSULIN SYRINGE-NEEDLE U-100 * Use 1 syringe for each dose 1* PEN NEEDLE, DIABETIC 31 GAUGE* Use one needle per dose. 1 pe* Problem List As Of Date 10/23/2017 Noted Resolved Pure hypercholesterolemia [E78.00] Priority: A Diabetes mellitus (HCC) [E11.9] 08/16/2016 Priority: Moderate More... Essential hypertension, benign [I10] Priority: B Unspecified disorder of joint [719.9] 11/23/2016 More... 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 Cardiomyopathy, nonischemic [I42.8] INVALID FOR* Abnormality of gait [R26.9] INVALID FOR* DM (diabetes mellitus), type 2, uncontrolled w/*INVALID FOR*12/21/2015 Chronic nausea [R11.0] INVALID FOR*09/01/2015 Ganglion cyst of right foot [M67.471] INVALID FOR* ICD (implantable cardioverter-defibrillator) in*INVALID FOR*08/16/2016 Biventricular ICD (implantable cardioverter-def*INVALID FOR* Uncontrolled type 2 diabetes mellitus with diab*INVALID FOR* Neuropathy (HCC) [G62.9] INVALID FOR*08/16/2016 Restless leg syndrome [G25.81] INVALID FOR* Peroneal tendinitis [M76.70] INVALID FOR* Pain in joint, ankle and foot [M25.579] INVALID FOR* Visit Notes: >> Georgette Shaw [facility] Oct 23, 2017 4:04 PM Status: Signed Patient presents with: Follow Up: Left foot pain Encounter Status:Closed by YESENIA LOWE DPM on 10/24/17 ENDOCRINOLOGY VISIT Observed: 10/07/2017 Status: F Source: [place] RE[facility] 12:47 PM [facility] REPOSITORY [facility] [address] [place] [address] [address] [place] [address] OFFICE VISIT Date of Service: 10/07/17 MR#: [id number] Acct: [id number] Name: MICHELLE THOMAS Rep #: [id number] : 1965 Provider: Lissette Payne NP Age/Sex: 52/F [place] [facility] [place]: Signed HPI History of present illness Michelle Thomas is a 52 year old female who presents for follow up of diabetes type 2. Diagnosed in 2002. Continues on prandin, basaglar 21 units daily. Pt denies difficulty with injections or self monitoring of BG. Denies any signs of infection or irritation at site of injections. Reports taking insulin as directed At time of visit: -Pt denies symptoms of hypertensive emergency (CP,SOB,HUGHES, or blurred vision) and hypotension(dizziness or lightheadedness) -Pt denies symptoms of hypoglycemia ( sweaty, confusion, anxiety, tremor, hunger, palpitations) and hyperglycemia ( polydipsia, polyuria) -Pt denies potential medication adverse effect. Hypoglycemia Aware of hypoglycemia: yes Able to self treat low BG: Yes Frequent low Blood sugar: No Has supply of glucagon: no Diet has been eating 3 meals daily. Can carb count Occ bedtime snack SMBG 89-120 with 2 higher BG readings Weight and fatigue symptoms: Denies snoring Cardiopulmonary symptoms: Denies myalgias GI symptoms: Reports nausea/dyspepsia; denies constipation, diarrhea or vomiting Other symptoms: Denies blurry vision or change in vision Self monitoring: Yes Glucometer type: freestyle Dietary compliance: Diabetes: good Diabetes education in past year: Yes Glucose testing: demonstrates correct use of meter Type: type 2 Weight and fatigue symptoms: Denies snoring Cardiopulmonary symptoms: Denies chest pain at rest, dyspnea on exertion, lightheadedness or myalgias GI symptoms: Reports nausea/dyspepsia; denies constipation, diarrhea or vomiting Other symptoms: Denies blurry vision or change in vision Exam Const General: comfortable, no acute distress Nutritional Appearance: well nourished, overweight Orientation: oriented x3 HENMT Head: normal to inspection, normocephalic Ears: hearing grossly normal bilaterally Mouth: oral mucosae normal, moist mucous membranes Teeth and gingiva: dentition normal Eyes General: appearance normal, both eyes and all related structures Eyelids: eyelids normal Conjunctivae: conjunctivae normal Sclera: sclerae normal Pupils: PERRL Neck Neck: normal visual inspection, no lymphadenopathy Resp Effort AND Inspection: normal respiratory effort, able to speak in complete sentences, symmetric chest movement Auscultation: Bilateral: Clear to Auscultation Cardio Rate: regular rate Rhythm: regular rhythm Heart Sounds: S1 normal, S2 normal GI Inspection: normal to inspection Auscultation: normal bowel sounds Palpation: soft Skin General: no rashes or lesions noted Wounds: no wounds Diabetic Foot Pulses: L dorsalis pedis pulse: normal, R dorsalis pedis pulse: normal Monofilament test: Left foot: normal Neuro General: gait normal, moves all extremities Cognition: normal cognition Speech: speech normal Gait: normal gait Extrem General: normal to inspection, no pedal edema Psych Appearance: well kempt Mental Status: mental status grossly normal Mood: congruent mood Affect: normal affect Speech and Movement: speech and movement normal Attitude: cooperative Thought Process: normal Thought Content: normal Judgment: judgment good Intake Vital Signs10/07/17 Height 5 ft 9 in 10/07/17 Weight: 203 lb 10/07/17 Body Mass Index (BMI) 29.9 10/07/17 Blood Pressure 130/77 10/07/17 Blood Pressure Location Lt popliteal 10/07/17 Blood Pressure Position Sitting Intake Visit Reasons: Diabetes follow-up 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 [Ecotrin] 81 mg PO DAILY@0800 04/18/13 [History Confirmed 10/07/17] Enalapril Maleate [Vasotec] 1.25 mg PO DAILY #30 tab 04/24/13 [Rx Confirmed 10/07/17] Furosemide [Lasix] 40 mg PO DAILY #30 tab 04/24/13 [Rx Confirmed 10/07/17] Magnesium Oxide [Mag-Ox 400] 400 mg PO BID #30 tab 06/01/13 [Rx Confirmed 10/07/17] pen needle, diabetic 31 gauge x 1/4 See Dose Instructions .ROUTE .MEDSUPPLY #30 ea 06/24/17 [Rx Confirmed 10/07/17] pen needle, diabetic 31 gauge x 5/16 See Dose Instructions .ROUTE .MEDSUPPLY #100 ea 06/24/17 [Rx Confirmed 10/07/17] pen needle, diabetic 29 gauge x 1/2 See Dose Instructions .ROUTE .MEDSUPPLY #50 ea 07/02/17 [Rx Confirmed 10/07/17] alogliptin 25 mg tablet 25 mg PO QDAY 08/12/17 [History Confirmed 10/07/17] atorvastatin 10 mg tablet 10 mg PO QDAY 08/12/17 [History Confirmed 10/07/17] carvedilol 12.5 mg tablet 25 mg PO BID tab 08/12/17 [History Confirmed 10/07/17] loratadine 10 mg tablet 10 mg PO QDAY 08/12/17 [History Confirmed 10/07/17] oxybutynin chloride 5 mg tablet 5 mg PO TID 08/12/17 [History Confirmed 10/07/17] pantoprazole 40 mg tablet,delayed release 40 mg PO BID tab 08/12/17 [History Confirmed 10/07/17] pramipexole 0.25 mg tablet 0.25 mg PO QDAY tab 08/12/17 [History Confirmed 10/07/17] spironolactone 25 mg tablet 25 mg PO QDAY 08/12/17 [History Confirmed 10/07/17] blood sugar diagnostic strips See Dose Instructions .ROUTE .MEDSUPPLY #100 ea 10/07/17 [Rx Confirmed 10/07/17] insulin glargine (U-100) 100 unit/mL (3 mL) subcutaneous pen 21 unit SC QDAY #15 ml 10/07/17 [Rx Confirmed 10/07/17] insulin syringe-needle U-100 0.3 mL 31 gauge x 16 See Dose Instructions .ROUTE .MEDSUPPLY #90 ea 10/07/17 [Rx Confirmed 10/07/17] metformin 500 mg tablet 500 mg PO DAILY #30 tab 10/07/17 [Rx Confirmed 10/07/17] repaglinide 2 mg tablet See Label Instructions PO TID #240 tab 10/07/17 [Rx Confirmed 10/07/17] Is last menstrual period known: No Post menopausal: Yes Patient : No Nurse's Note: blood sugars : low : 89 high : 288 PFSH Medical History Gout (Acute) Heart disease (Acute) Nonischemic dilated cardiomyopathy (Acute) Arthritis (Chronic) Diabetes type 2, controlled (Chronic) HTN (hypertension) (Chronic) Headache (Chronic) Hyperlipidemia (Chronic) Pulmonary HTN (Chronic) RLS (restless legs syndrome) (Chronic) Seasonal allergies (Chronic) Surgical History H/O colectomy (Acute) History of hysteroscopy (Acute) History of left heart catheterization (Acute) Hx of appendectomy (Acute) Family History Father Heart disease Myocardial infarction CAD (coronary artery disease) Mother CAD (coronary artery disease) Heart disease Social History Smoking Status: Never smoker second hand exposure: No alcohol intake: current alcohol intake frequency: a few times a month substance use type: does not use ROS Const Constitutional: No anorexia, body ache, chills, fatigue, fever(s), frequent falls, decreased energy, malaise, night sweats, weakness, weight change, sleep problems, abnormal sleep pattern, change in appetite, other, headache(s), snoring or excessive sweating Eyes Eyes: No blurry vision, change in vision, double vision, discharge, dry eyes, bulging eyes, floaters, visual disturbances, eye pain, light sensitivity, spots in vision, tunnel vision or other ENT ENT: No abnormal hearing, ear pain, ear discharge, ear pressure, hearing loss, tinnitus, dizziness/vertigo, balance problems, nosebleed/epistaxis, nasal congestion, nasal obstruction, nose pain, sinus pressure, sinus pain, nasal discharge, post nasal drip, headache(s), facial pain, dental pain, dry mouth, bad breath, hoarseness, lip swelling, mouth lesions, mouth pain, sore throat, tongue swelling, throat swelling, other, difficulty swallowing or neck pain Resp Respiratory: No cough, change in phlegm color, chest congestion, excessive phlegm production, hemoptysis, pain on inspiration, shortness of breath, pain with cough, snoring, stridor, wheezing or other Cardio Cardiology: No chest pain at rest, chest pain with exertion, leg pain with exertion, excessive sweating, shortness of breath, dyspnea on exertion, generalized swelling, irregular heart rhythm, lightheadedness, orthopnea, radiating jaw, neck or arm pain, fast heart rate, slow heart rate, palpitations or other Gastro GI: Positive for nausea/dyspepsia; no abdominal pain, belching, bloating, change in bowel habits, change in stool character, coffee ground emesis, constipation, cramping, diarrhea, heartburn, difficulty swallowing, feeling full early, excessive flatus, incontinent of stools, Vomiting blood/hematemesis, blood in stool, loose stools, Black,tarry stools, pain with swallowing, vomiting or other Genitourinary-Female: No difficulty urinating, burning urination, painful urination, urinary incontinence, urinary frequency, urinary urgency, urinary hesitancy, urinary retention, blood in urine, Frequent nighttime urination/ nocturia, post void dribbling, suprapubic fullness, side pain, sexual problems, genital lesions, genital itching, hot flashes, abnormal periods, abnormal vaginal bleeding, absent period, painful periods, light periods, heavy periods, difficulty getting , painful intercourse, pelvic pain, vaginal dryness, vaginal odor, Vaginal Itching or other Musc Musculoskeletal: No abnormal walking, joint pain, back pain, deformity, joint swelling, limited range of motion, loss of height, muscle cramps, muscle weakness, decreased muscle mass, body aches, neck pain, numbness, radiating pain into limb, stiffness, tingling or other Neuro Neurology: No frequent falls, weakness, visual disturbances, abnormal hearing, headache(s), abnormal walking, numbness or tingling Psych Psychiatric: No abnormal sleep pattern, No change in appetite Endo Endocrine: No fatigue, other or excessive sweating Aller/Imm Allergy/Immunologic: No lip swelling, tongue swelling, throat swelling or wheezing Assessment AND Plan 1. Diabetes mellitus type 2 in obese E11.9; E66.9 Plan BG readings doing well. If she notes any lower BG in am, decrease prandin at bedtime snack. Monitor BG throughout the day. On darius inhibitor On statin Eye exam annual. Follows with cardiology, podiatry and nephrology as well as PCP. Labs recently done at [facility] lab; no copies sent 2. Essential hypertension I10 Plan BP reading 130/77 today. Patient Instructions 1. Please schedule follow up in 3 months. 2. Lab work one week before appointment. 3. Discussed importance of regular exercise and recommend starting or continuing a regular exercise program for good health. 4. The patient was encouraged to lose weight for good health 5. The importance of monitoring blood sugar regularly was reviewed. 6. The importance of monitoring the HBA1c level regularly was reviewed. 7. The importance of prper foot care and regularly checking feet to prevent sores and loss of limbs was reviewed. 8. The importance of keeping BP at or below 130/80 to prevent stroke, heart attacks, kidney failure, blindness was reviewed. Spent approximately 30 minutes with patient with over 50% of time spent in discussion and counseling regarding medication adjustment, symptoms and treatment of hypoglycemia, diet adherence, and checking BG before driving. Plan Detail Other Medications New: Refilled: insulin glargine (U-100) (Basaglar KwikPen U-43779 units (0.21 mL) Sub-Q QDAY Insulin) Coding Level of Care Code Off vis,est,level 4 Diagnoses Diabetes mellitus type 2 in obese E11.9; E66.9 Essential hypertension I10 Hypertension type: essential hypertension Time Spent (min) 30 10/07/17 1247 <Electronically signed by Lissette NOLAN> Date Lissette AHUJAC Cosigner Signature: Date (if applicable) CC: PROGRESS Observed: 09/11/2017 Status: COMPLETED Source: [place] 11:04 AM [facility] [place] REPOSITORY O ID: [id number] Author: Radha Frost Service: (none) Author Type: Physician Type: Progress Notes Filed: 09/11/2017 11:28 AM Note Text: CHIEF COMPLAINT: 1. Pigmented purpuric follow up doing well. Here today with her ex- Michel 2. 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 Everything is cleared with triamcinolone 0.1% ointment. She was given compression stockings but admits that she has not been wearing them. DERM PROBLEM LIST * has defibrillator Benign pigmented purpuric dermatosis - triamcinolone 0.1% ointment, compression stockings Asteatosis - triamcinolone 0.1% ointment Solar lentigines Capillary hemangioma PAST MEDICAL HISTORY: PAST MEDICAL HISTORY Diagnosis Date - Anxiety disorder in conditions classified elsewhere - Arthritis left knee with spur - Cardiomyopathy, nonischemic (HCC) 04/2013 - Degenerative joint disease involving multiple joints shoulders, right knee - Essential hypertension, benign - Family history of colon cancer 5y screening cycle - GERD (gastroesophageal reflux disease) - History of placement of internal cardiac defibrillator 09/03/2013 - Neuropathy (HCC) 02/09/2016 - Obesity, unspecified - Pure hypercholesterolemia - Restless leg syndrome 02/09/2016 - Snoring - Type II or unspecified type diabetes mellitus without mention of complication, not stated as uncontrolled - Vitamin D deficiency ACTIVE PROBLEM LIST Pure Hypercholesterolemia Essential Hypertension, Benign Toxic Diffuse Goiter Anal Condyloma Anxiety Disorder in Conditions Classified Elsewhere Vitamin D Deficiency Family History of Colon Cancer Cardiomyopathy, Nonischemic (Hcc) Abnormality of Gait Ganglion Cyst of Right Foot Biventricular Icd (Implantable Cardioverter-Defibrillator) in Place Uncontrolled Type 2 Diabetes Mellitus With Diabetic Neuropathy, Without Long-Term Current Use of Insulin (Hcc) Restless Leg Syndrome Peroneal Tendinitis Pain in Joint, Ankle and Foot PAST SURGICAL HISTORY Procedure Laterality Date - APPENDECTOMY 2006 - COLONOSCOP W/ OR W/O [facility] SPEC 10/08/06 - COLONOSCOP W/ OR W/O [facility] SPEC 09/18/2011 Colonoscopy - COLONOSCOP W/ OR W/O [facility] SPEC 09/27/2016 Colonoscopy - DESTR LES BENIGN/ PREMAL 02/06/12 Ablation anal condyomata - EGD 09-01-15 - INSERT DUAL CHAMBER ICD 09/03/13 pacemaker/defibulator - KNEE SCOPE,DIAGNOSTIC right - LAPAROSCOPY, SURGICAL, APPENDECTOMY 10/22/06 - PAST SURGICAL HISTORY OF Right 11-14 ganglion cyst - PAST SURGICAL HISTORY OF Left 2016 cyst removed from left foot - TONSILLECTOMY AND ADENOIDECTOMY HX age 6 - TOTAL ABDOM HYSTERECTOMY 2005 menorrhagia/dysmenorrhea (negative for cancer) -- [place] MEDICATIONS: Current Outpatient Prescriptions: oxybutynin ER (DITROPAN XL) 15 mg 24 hr Extended Rel Tab Take 1 tablet by mouth once daily. Disp: 30 tablet Rfl: 5 enalapril (VASOTEC) 2.5 mg tablet Take 1 tablet by mouth once daily. Disp: 90 tablet Rfl: 3 furosemide (LASIX) 40 mg tablet TAKE 1 TABLET DAILY Disp: 90 tablet Rfl: 3 spironolactone (ALDACTONE) 25 mg tablet TAKE 1 TABLET DAILY Disp: 90 tablet Rfl: 3 atorvastatin (LIPITOR) 10 mg tablet TAKE 1 TABLET DAILY Disp: 90 tablet Rfl: 3 carvedilol (COREG) 25 mg tablet TAKE 1 TABLET TWICE A DAY Disp: 180 tablet Rfl: [address] (PROTONIX) 40 mg tablet TAKE 1 TABLET BY MOUTH TWICE DAILY Disp: 56 tablet Rfl: 3 triamcinolone acetonide (KENALOG) 0.1 % ointment Apply to affected area on legs twice daily as needed. Use 2 weeks on 1 week off. Not for face, armpits or groin Disp: 80 g Rfl: 0 insulin glargine (BASAGLAR KWIKPEN) 100 unit/mL (3 mL) inpn Inject 21 Units subcutaneously every evening. Disp: 5 Pen Rfl: 5 metFORMIN (GLUCOPHAGE) 500 mg tablet Take by mouth. 2 pills in AM, 1 pill with lunch, and 2 pills with supper Disp: 150 tablet Rfl: 11 aspirin, enteric coated (ECOTRIN LOW STRENGTH) 81 mg EC tablet Take 1 tablet by mouth once daily. Disp: 30 tablet Rfl: 11 loratadine (CLARITIN) 10 mg tablet Take 1 tablet by mouth once daily. Disp: 30 tablet Rfl: 11 alogliptin 25 mg tab Take 1 tablet by mouth once daily. Disp: 30 tablet Rfl: 11 pramipexole 0.75 mg tablet Take 0.75 mg by mouth daily at bedtime. Disp: 30 tablet Rfl: 5 magnesium oxide (MAG-OX) 400 mg tablet Take 1 tablet by mouth twice daily. Disp: 60 tablet Rfl: 11 fluticasone (FLONASE) 50 mcg/actuation nasal spray Use 2 Sprays in each nostril once daily. Disp: 1 Bottle Rfl: 11 ONETOUCH ULTRA TEST test strip USE TO TEST BLOOD SUGAR THREE TIMES A DAY Disp: 300 Strip Rfl: 3 Lancets lancets Test blood sugar(s) 3 times daily. Disp: 300 Each Rfl: 3 Blood-Glucose Meter (FREESTYLE SYSTEM KIT) monitoring kit 1 Each as needed. Disp: 1 Each Rfl: 0 albuterol HFA (PROAIR HFA) 90 mcg/actuation inhaler Inhale 2 Puffs as instructed every 4 hours as needed. Disp: 1 Inhaler Rfl: 5 repaglinide (PRANDIN) 2 mg tablet Take 1-2 tablets each meal (Patient taking differently: Take 1-2 tablets three times daily before meal) Disp: 180 tablet Rfl: 11 Insulin Syringe-Needle U-100 (INSULIN SYRINGE) 1/2 mL 30 x 5/16 syrg Use 1 syringe for each dose 1/day Disp: 100 Syringe Rfl: 11 insulin needles, DISPOSABLE, (PEN NEEDLE) 31 gauge x 5/16 ndle Use one needle per dose. 1 per day. Disp: 100 Each Rfl: 11 No current facility-administered medications for this visit. ALLERGIES: Adhesive Tape (Rosins); Latex; Simvastatin PHYSICAL EXAMINATION: GENERAL: Patient is a well appearing, well nourished and pleasant, female alert and oriented, NAD. SKIN: Legs are clear on exam. Patient declined examination of her trunk. ASSESSMENT AND PLAN: 1) asteatosis - Resolved - Continue gentle cleansers and emollients - Triamcinolone 0.1% ointment twice daily as needed 2) benign pigmented purpuric dermatosis - Patient is clear on exam today - Encouraged her to wear compression stockings - Triamcinolone 0.1% ointment twice daily as needed if it recurs Return to clinic as needed. Advised patient to return to clinic for refills over one year Radha Frost MD CNOV Observed: 09/11/2017 Status: COMPLETED Source: [place] 10:40 AM [facility] REPOSITORY Office Visit (DERMIN) MICHELLE THOMAS ([id number]) 1965 F Date Time Provider Department 09/11/17 10:40 AM RADHA FROST During your visit today, we recorded the following information about you: Radha Frost MD 09/11/2017 11:28 AM Signed CHIEF COMPLAINT: 1. Pigmented purpuric follow up doing well. Here today with her ex- Michel 2. 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 Everything is cleared with triamcinolone 0.1% ointment. She was given compression stockings but admits that she has not been wearing them. DERM PROBLEM LIST * has defibrillator Benign pigmented purpuric dermatosis - triamcinolone 0.1% ointment, compression stockings Asteatosis - triamcinolone 0.1% ointment Solar lentigines Capillary hemangioma PAST MEDICAL HISTORY: PAST MEDICAL HISTORY Diagnosis Date - Anxiety disorder in conditions classified elsewhere - Arthritis left knee with spur - Cardiomyopathy, nonischemic (HCC) 04/2013 - Degenerative joint disease involving multiple joints shoulders, right knee - Essential hypertension, benign - Family history of colon cancer 5y screening cycle - GERD (gastroesophageal reflux disease) - History of placement of internal cardiac defibrillator 09/03/2013 - Neuropathy (HCC) 02/09/2016 - Obesity, unspecified - Pure hypercholesterolemia - Restless leg syndrome 02/09/2016 - Snoring - Type II or unspecified type diabetes mellitus without mention of complication, not stated as uncontrolled - Vitamin D deficiency ACTIVE PROBLEM LIST Pure Hypercholesterolemia Essential Hypertension, Benign Toxic Diffuse Goiter Anal Condyloma Anxiety Disorder in Conditions Classified Elsewhere Vitamin D Deficiency Family History of Colon Cancer Cardiomyopathy, Nonischemic ([facility]) Abnormality of Gait Ganglion Cyst of Right Foot Biventricular Icd (Implantable Cardioverter-Defibrillator) in Place Uncontrolled Type 2 Diabetes Mellitus With Diabetic Neuropathy, Without Long-Term Current Use of Insulin ([facility]) Restless Leg Syndrome Peroneal Tendinitis Pain in Joint, Ankle and Foot PAST SURGICAL HISTORY Procedure Laterality Date - APPENDECTOMY 2006 - COLONOSCOP W/ OR W/O [facility] SPEC 10/08/06 - COLONOSCOP W/ OR W/O [facility] SPEC 09/18/2011 Colonoscopy - COLONOSCOP W/ OR W/O [facility] SPEC 09/27/2016 Colonoscopy - DESTR LES BENIGN/ PREMAL 02/06/12 Ablation anal condyomata - EGD 09-01-15 - INSERT DUAL CHAMBER ICD 09/03/13 pacemaker/defibulator - KNEE SCOPE,DIAGNOSTIC right - LAPAROSCOPY, SURGICAL, APPENDECTOMY 10/22/06 - PAST SURGICAL HISTORY OF Right 05-28 ganglion cyst - PAST SURGICAL HISTORY OF Left 2016 cyst removed from left foot - TONSILLECTOMY AND ADENOIDECTOMY HX age 6 - TOTAL ABDOM HYSTERECTOMY 2005 menorrhagia/dysmenorrhea (negative for cancer) -- [place] MEDICATIONS: Current Outpatient Prescriptions: oxybutynin ER (DITROPAN XL) 15 mg 24 hr Extended Rel Tab Take 1 tablet by mouth once daily. Disp: 30 tablet Rfl: 5 enalapril (VASOTEC) 2.5 mg tablet Take 1 tablet by mouth once daily. Disp: 90 tablet Rfl: 3 furosemide (LASIX) 40 mg tablet TAKE 1 TABLET DAILY Disp: 90 tablet Rfl: 3 spironolactone (ALDACTONE) 25 mg tablet TAKE 1 TABLET DAILY Disp: 90 tablet Rfl: 3 atorvastatin (LIPITOR) 10 mg tablet TAKE 1 TABLET DAILY Disp: 90 tablet Rfl: 3 carvedilol (COREG) 25 mg tablet TAKE 1 TABLET TWICE A DAY Disp: 180 tablet Rfl: [address] (PROTONIX) 40 mg tablet TAKE 1 TABLET BY MOUTH TWICE DAILY Disp: 56 tablet Rfl: 3 triamcinolone acetonide (KENALOG) 0.1 % ointment Apply to affected area on legs twice daily as needed. Use 2 weeks on 1 week off. Not for face, armpits or groin Disp: 80 g Rfl: 0 insulin glargine (BASAGLAR KWIKPEN) 100 unit/mL (3 mL) inpn Inject 21 Units subcutaneously every evening. Disp: 5 Pen Rfl: 5 metFORMIN (GLUCOPHAGE) 500 mg tablet Take by mouth. 2 pills in AM, 1 pill with lunch, and 2 pills with supper Disp: 150 tablet Rfl: 11 aspirin, enteric coated (ECOTRIN LOW STRENGTH) 81 mg EC tablet Take 1 tablet by mouth once daily. Disp: 30 tablet Rfl: 11 loratadine (CLARITIN) 10 mg tablet Take 1 tablet by mouth once daily. Disp: 30 tablet Rfl: 11 alogliptin 25 mg tab Take 1 tablet by mouth once daily. Disp: 30 tablet Rfl: 11 pramipexole 0.75 mg tablet Take 0.75 mg by mouth daily at bedtime. Disp: 30 tablet Rfl: 5 magnesium oxide (MAG-OX) 400 mg tablet Take 1 tablet by mouth twice daily. Disp: 60 tablet Rfl: 11 fluticasone (FLONASE) 50 mcg/actuation nasal spray Use 2 Sprays in each nostril once daily. Disp: 1 Bottle Rfl: 11 ONETOUCH ULTRA TEST test strip USE TO TEST BLOOD SUGAR THREE TIMES A DAY Disp: 300 Strip Rfl: 3 Lancets lancets Test blood sugar(s) 3 times daily. Disp: 300 Each Rfl: 3 Blood-Glucose Meter (FREESTYLE SYSTEM KIT) monitoring kit 1 Each as needed. Disp: 1 Each Rfl: 0 albuterol HFA (PROAIR HFA) 90 mcg/actuation inhaler Inhale 2 Puffs as instructed every 4 hours as needed. Disp: 1 Inhaler Rfl: 5 repaglinide (PRANDIN) 2 mg tablet Take 1-2 tablets each meal (Patient taking differently: Take 1-2 tablets three times daily before meal) Disp: 180 tablet Rfl: 11 Insulin Syringe-Needle U-100 (INSULIN SYRINGE) 1/2 mL 30 x 5/16ANDquot; syrg Use 1 syringe for each dose 1/day Disp: 100 Syringe Rfl: 11 insulin needles, DISPOSABLE, (PEN NEEDLE) 31 gauge x 5/16ANDquot; ndle Use one needle per dose. 1 per day. Disp: 100 Each Rfl: 11 No current facility-administered medications for this visit. ALLERGIES: Adhesive Tape (Rosins); Latex; Simvastatin PHYSICAL EXAMINATION: GENERAL: Patient is a well appearing, well nourished and pleasant, female alert and oriented, NAD. SKIN: Legs are clear on exam. Patient declined examination of her trunk. ASSESSMENT AND PLAN: 1) asteatosis - Resolved - Continue gentle cleansers and emollients - Triamcinolone 0.1% ointment twice daily as needed 2) benign pigmented purpuric dermatosis - Patient is clear on exam today - Encouraged her to wear compression stockings - Triamcinolone 0.1% ointment twice daily as needed if it recurs Return to clinic as needed. Advised patient to return to clinic for refills over one year MD Marysol Lyn MA 09/11/2017 11:07 AM Signed [phone] cell Marysol Page MA September 11, 2017 11:06 AM Referring Provider: MELLO DING [[id number]] Allergies As of Date: 09/11/2017 Noted Allergy Reaction ADHESIVE TAPE (ROSINS) 03/27/2006 9 - Itching LATEX 01/10/2011 2 - Rash SIMVASTATIN 11/04/2012 14 - Other: See Comments Comments: myalgia Date Reviewed: 08/07/2017 Reviewed by: Julee Elmore (Pa) - Fully Assessed Reason for Visit: Pigmented purpuric follow up [Other] Primary Visit Diagnosis:Pigmented purpuric dermatosis [L81.7] Other Visit Diagnosis:Asteatosis [L85.3] Prescriptions as of 09/11/2017 Sig: OXYBUTYNIN CHLORIDE ER 15 MG * Take 1 tablet by mouth once d* ENALAPRIL MALEATE 2.5 MG TABL* Take 1 tablet by mouth once d* FUROSEMIDE 40 MG TABLET TAKE 1 TABLET DAILY SPIRONOLACTONE 25 MG TABLET TAKE 1 TABLET DAILY ATORVASTATIN 10 MG TABLET TAKE 1 TABLET DAILY CARVEDILOL 25 MG TABLET TAKE 1 TABLET TWICE A DAY PANTOPRAZOLE 40 MG TABLET,DEL* TAKE 1 TABLET BY MOUTH TWICE * TRIAMCINOLONE ACETONIDE 0.1 %* Apply to affected area on leg* INSULIN GLARGINE (U-100) 100 * Inject 21 Units subcutaneousl* METFORMIN 500 MG TABLET Take by mouth. 2 pills in AM* ASPIRIN 81 MG TABLET,DELAYED * Take 1 tablet by mouth once d* LORATADINE 10 MG TABLET Take 1 tablet by mouth once d* ALOGLIPTIN 25 MG TABLET Take 1 tablet by mouth once d* PRAMIPEXOLE 0.75 MG TABLET Take 0.75 mg by mouth daily a* MAGNESIUM OXIDE 400 MG TABLET Take 1 tablet by mouth twice * FLUTICASONE 50 MCG/ACTUATION * Use 2 Sprays in each nostril * daPulse ULTRA TEST STRIPS USE TO TEST BLOOD SUGAR THREE* LANCETS Test blood sugar(s) 3 times d* BLOOD-GLUCOSE METER KIT 1 Each as needed. ALBUTEROL SULFATE HFA 90 MCG/* Inhale 2 Puffs as instructed * REPAGLINIDE 2 MG TABLET Take 1-2 tablets each meal Patient taking differently: Take 1-2 tablets three times * INSULIN SYRINGE-NEEDLE U-100 * Use 1 syringe for each dose 1* PEN NEEDLE, DIABETIC 31 GAUGE* Use one needle per dose. 1 pe* Problem List As Of Date 09/11/2017 Noted Resolved Pure hypercholesterolemia [E78.00] Priority: A Diabetes mellitus (HCC) [E11.9] 08/16/2016 Priority: Moderate More... Essential hypertension, benign [I10] Priority: B Unspecified disorder of joint [719.9] 11/23/2016 More... 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 Cardiomyopathy, nonischemic [I42.8] INVALID FOR* Abnormality of gait [R26.9] INVALID FOR* DM (diabetes mellitus), type 2, uncontrolled w/*INVALID FOR*12/21/2015 Chronic nausea [R11.0] INVALID FOR*09/01/2015 Ganglion cyst of right foot [M67.471] INVALID FOR* ICD (implantable cardioverter-defibrillator) in*INVALID FOR*08/16/2016 Biventricular ICD (implantable cardioverter-def*INVALID FOR* Uncontrolled type 2 diabetes mellitus with diab*INVALID FOR* Neuropathy (HCC) [G62.9] INVALID FOR*08/16/2016 Restless leg syndrome [G25.81] INVALID FOR* Peroneal tendinitis [M76.70] INVALID FOR* Pain in joint, ankle and foot [M25.579] INVALID FOR* Visit Notes: >> Marysol Page MA [facility] Sep 11, 2017 11:06 AM Status: Signed [phone] cell Marysol Page MA September 11, 2017 11:06 AM Encounter Status:Closed by RADHA FROST MD on 09/11/17 ENDOCRINOLOGY VISIT Observed: 09/09/2017 Status: F Source: [place] RE[facility] 12:51 PM [facility] REPOSITORY [facility] [address] [place] [address] [address] [place] [address] OFFICE VISIT Date of Service: 09/09/17 MR#: [id number] Acct: [id number] Name: MICHELLE THOMAS Rep #: [id number] : 1965 Provider: Lissette Payne NP Age/Sex: 52/F Location[place] [facility] [place]: Signed HPI History of present illness Michelle Thomas is a 52 year old female who presents for follow up of diabetes type 2. Diagnosed in 2002. Continues on prandin, basaglar 21 units daily. Pt denies difficulty with injections or self monitoring of BG. Denies any signs of infection or irritation at site of injections. Reports taking insulin as directed Concerned today as her BG have been higher last month. Is not sleeping as well andnot as hungry in the morning. Reports she is feeling stressed as she is getting . At time of visit: -Pt denies symptoms of hypertensive emergency (CP,SOB,HUGHES, or blurred vision) and hypotension(dizziness or lightheadedness) -Pt denies symptoms of hypoglycemia ( sweaty, confusion, anxiety, tremor, hunger, palpitations) and hyperglycemia ( polydipsia, polyuria) -Pt denies potential medication adverse effect. Hypoglycemia Aware of hypoglycemia: yes Able to self treat low BG: Yes Frequent low Blood sugar: No Has supply of glucagon: no Diet has been only eating 2 meals daily last week or so. Can carb count Occ bedtime snack SMBG 100-189. Glucose control symptoms: Reports high fasting glucose Weight and fatigue symptoms: Denies snoring Cardiopulmonary symptoms: Denies myalgias GI symptoms: Reports nausea/dyspepsia; denies constipation, diarrhea or vomiting Other symptoms: Denies blurry vision or change in vision Self monitoring: Yes Glucometer type: Aerify Mediastyle Dietary compliance: Diabetes: good Diabetes education in past year: Yes Glucose testing: demonstrates correct use of meter Exam Const General: no acute distress, well groomed Nutritional Appearance: overweight Orientation: oriented x3 HENMT Head: normal to inspection, atraumatic Ears: hearing grossly normal bilaterally Mouth: oral mucosae normal, moist mucous membranes Teeth and gingiva: dentition normal Eyes General: appearance normal, both eyes and all related structures Eyelids: eyelids normal Conjunctivae: conjunctivae normal Sclera: sclerae normal Pupils: PERRL Neck Neck: normal visual inspection, full ROM Neck mass: No Chest Chest palpation AND inspection: deferred Resp Effort AND Inspection: normal respiratory effort, able to speak in complete sentences, symmetric chest movement Auscultation: Bilateral: Clear to Auscultation Cardio Rate: regular rate Rhythm: regular rhythm Heart Sounds: no murmurs GI Inspection: normal to inspection Auscultation: normal bowel sounds Palpation: soft General: deferred Musc Thoracic/Lumbar Spine: thoracic and lumbar spine normal to inspection Skin General: no rashes or lesions noted Wounds: no wounds Diabetic Foot Inspection: Yes foot deformity Pulses: L dorsalis pedis pulse: normal, R dorsalis pedis pulse: normal Monofilament test: Left foot: normal, Right foot: normal Neuro General: gait normal Cognition: normal cognition Speech: speech normal Gait: normal gait Extrem General: full ROM, normal to inspection, no edema Psych Appearance: well kempt Mood: congruent mood Affect: normal affect Speech and Movement: speech and movement normal Attitude: cooperative Thought Process: normal Thought Content: normal Judgment: judgment good Intake Vital Signs09/09/17 Height 5 ft 9 in 09/09/17 Weight: 202 lb 09/09/17 Body Mass Index (BMI) 29.8 09/09/17 Blood Pressure 123/74 09/09/17 Blood Pressure Location Rt popliteal 09/09/17 Blood Pressure Position Sitting Intake Visit 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 [Ecotrin] 81 mg PO DAILY@0800 04/18/13 [History Confirmed 08/12/17] Enalapril Maleate [Vasotec] 1.25 mg PO DAILY #30 tab 04/24/13 [Rx Confirmed 08/12/17] Furosemide [Lasix] 40 mg PO DAILY #30 tab 04/24/13 [Rx Confirmed 08/12/17] Magnesium Oxide [Mag-Ox 400] 400 mg PO BID #30 tab 06/01/13 [Rx Confirmed 08/12/17] Metformin HCl [Glucophage] 500 mg PO DAILY 09/30/13 [History Confirmed 08/12/17] pen needle, diabetic 31 gauge x 1/4 See Dose Instructions .ROUTE .MEDSUPPLY #30 ea 06/24/17 [Rx Confirmed 08/12/17] pen needle, diabetic 31 gauge x 5/16 See Dose Instructions .ROUTE .MEDSUPPLY #100 ea 06/24/17 [Rx Confirmed 08/12/17] pen needle, diabetic 29 gauge x 1/2 See Dose Instructions .ROUTE .MEDSUPPLY #50 ea 07/02/17 [Rx Confirmed 08/12/17] alogliptin 25 mg tablet 25 mg PO QDAY 08/12/17 [History Confirmed 08/12/17] atorvastatin 10 mg tablet 10 mg PO QDAY 08/12/17 [History Confirmed 08/12/17] blood sugar diagnostic strips See Dose Instructions .ROUTE .MEDSUPPLY #20 ea 08/12/17 [History Confirmed 08/12/17] carvedilol 12.5 mg tablet 25 mg PO BID tab 08/12/17 [History Confirmed 09/09/17] loratadine 10 mg tablet 10 mg PO QDAY 08/12/17 [History Confirmed 08/12/17] oxybutynin chloride 5 mg tablet 5 mg PO TID 08/12/17 [History Confirmed 08/12/17] pantoprazole 40 mg tablet,delayed release 40 mg PO BID tab 08/12/17 [History Confirmed 08/12/17] pramipexole 0.25 mg tablet 0.25 mg PO QDAY tab 08/12/17 [History Confirmed 08/12/17] spironolactone 25 mg tablet 25 mg PO QDAY 08/12/17 [History Confirmed 08/12/17] insulin glargine (U-100) 100 unit/mL (3 mL) subcutaneous pen 21 unit SC QDAY #15 ml 09/09/17 [Rx Confirmed 09/09/17] repaglinide 2 mg tablet See Label Instructions PO TID #240 tab 09/09/17 [Rx Confirmed 09/09/17] Is last menstrual period known: No Post menopausal: Yes Patient : No Nurse's Note: diabetes type 2 Dx : 2002 Last exacerbation : DKA : never Hypoglycemic episode : never ER visit : never Blood sugars : Low : 94 High : 188 [facility] Medical History Gout (Acute) Heart disease (Acute) Nonischemic dilated cardiomyopathy (Acute) Arthritis (Chronic) Diabetes type 2, controlled (Chronic) HTN (hypertension) (Chronic) Headache (Chronic) Hyperlipidemia (Chronic) Pulmonary HTN (Chronic) RLS (restless legs syndrome) (Chronic) Seasonal allergies (Chronic) Surgical History H/O colectomy (Acute) History of hysteroscopy (Acute) History of left heart catheterization (Acute) Hx of appendectomy (Acute) Family History Father Heart disease Myocardial infarction CAD (coronary artery disease) Mother CAD (coronary artery disease) Heart disease Social History Smoking Status: Never smoker second hand exposure: No alcohol intake: current alcohol intake frequency: a few times a month substance use type: does not use ROS Const Constitutional: Positive for fatigue and change in appetite; no anorexia, body ache, chills, fever(s), frequent falls, decreased energy, malaise, night sweats, weakness, weight change, sleep problems, abnormal sleep pattern, other, headache(s) or snoring Eyes Eyes: No blurry vision, change in vision, double vision, discharge, dry eyes, bulging eyes, floaters, visual disturbances, eye pain, light sensitivity, spots in vision, tunnel vision or other ENT ENT: Positive for nasal congestion and other (itchy,watery eyes); no abnormal hearing, ear pain, ear discharge, ear pressure, hearing loss, tinnitus, dizziness/vertigo, balance problems, nosebleed/epistaxis, nasal obstruction, nose pain, sinus pressure, sinus pain, nasal discharge, post nasal drip, headache(s), facial pain, dental pain, dry mouth, bad breath, hoarseness, lip swelling, mouth lesions, mouth pain, sore throat, tongue swelling, throat swelling, difficulty swallowing or neck pain Resp Respiratory: No cough, change in phlegm color, chest congestion, excessive phlegm production, hemoptysis, pain on inspiration, shortness of breath, pain with cough, snoring, stridor, wheezing or other Gastro GI: Positive for nausea/dyspepsia; no abdominal pain, belching, bloating, change in bowel habits, change in stool character, coffee ground emesis, constipation, cramping, diarrhea, heartburn, difficulty swallowing, feeling full early, excessive flatus, incontinent of stools, Vomiting blood/hematemesis, blood in stool, loose stools, Black,tarry stools, pain with swallowing, vomiting or other Genitourinary-Female: No difficulty urinating, burning urination, painful urination, urinary incontinence, urinary frequency, urinary urgency, urinary hesitancy, urinary retention, blood in urine, Frequent nighttime urination/ nocturia, post void dribbling, suprapubic fullness, side pain, sexual problems, genital lesions, genital itching, hot flashes, abnormal periods, abnormal vaginal bleeding, absent period, painful periods, light periods, heavy periods, difficulty getting , painful intercourse, pelvic pain, vaginal dryness, vaginal odor, Vaginal Itching or other Musc Musculoskeletal: Positive for back pain; no abnormal walking, joint pain, deformity, joint swelling, limited range of motion, loss of height, muscle cramps, muscle weakness, decreased muscle mass, body aches, neck pain, numbness, radiating pain into limb, stiffness, tingling or other Neuro Neurology: No frequent falls, weakness, visual disturbances, abnormal hearing, headache(s), abnormal walking, numbness or tingling Psych Psychiatric: No abnormal sleep pattern, Positive for change in appetite Endo Endocrine: Positive for fatigue and other (itchy,watery eyes) Aller/Imm Allergy/Immunologic: No lip swelling, tongue swelling, throat swelling or wheezing Assessment AND Plan Problems 1. Diabetes mellitus type 2 in obese E11.69; E66.9 2. Essential hypertension I10 Plan Diabetes: BG higher than normal. Last a1c in the 6 range. Enc her to check more often during the day and to capture meals in before and after readings. Has basaglar insulin which she can increase incrementally or also trial prandin with bedtime snack. Will recommend prandin with bedtime snack at this time. Hypertension controlled. No side effects of medication. Stress: Is going to counseling. Feels beneficial. Orders Orders: Medications New: insulin glargine (U-100) (Basaglar KwikPen U-88187 units (0.21 mL) Sub-Q QDAY Insulin) Changed: Plan Detail Additional Comments 1. Please schedule follow up in 6 weeks 2. Lab work one week before appointment. 3. Discussed importance of regular exercise and recommend starting or continuing a regular exercise program for good health. 4. The patient was encouraged to lose weight for good health 5. The importance of monitoring blood sugar regularly was reviewed. 6. The importance of monitoring the HBA1c level regularly was reviewed. 7. The importance of prper foot care and regularly checking feet to prevent sores and loss of limbs was reviewed. 8. The importance of keeping BP at or below 130/80 to prevent stroke, heart attacks, kidney failure, blindness was reviewed. Spent approximately 30 minutes with patient with over 50% of time spent in discussion and counseling regarding medication adjustment, symptoms and treatment of hypoglycemia, diet adherence, and checking BG before driving. Coding Level of Care Code Off vis,est,level 4 Diagnoses Diabetes mellitus type 2 in obese E11.69; E66.9 Essential hypertension I10 Hypertension type: essential hypertension Time Spent (min) 30 09/09/17 1251 <Electronically signed by Lissette NOLAN> Date Lissette NOLAN Cosigner Signature: Date (if applicable) CC: SERA Observed: 08/14/2017 Status: COMPLETED Source: [place] 12:00 AM [facility] REPOSITORY Telephone (UROLAV) MICHELLE THOMAS ([id number]) 1965 F Date Time Provider Department 08/14/17 JULEE ELMORE) UROLAV During your visit today, we recorded the following information about you: Chelykathy Jaquez Ma 08/14/2017 5:23 PM Signed Julee, We received a fax from [employer] They DENIED the PA for Myrbetriq. They indicated other medication are available on the pt's preferred drug list. They listed the alternative medications that are on the preferred drug list. This fax was placed in your work bin, [employer] [facility] office. Msg routed to the provider's attn. Julee Elmore PA-C 08/16/2017 9:11 AM Addendum Spoke with [employer] regarding denial. Patient needs to try and fail 3 approved medications prior to myrbetriq approval. We can resubmit a prior authorization after that time. Will recommend ditropan XL, and sanctura. 3 preferred medicines: Oxybutynin immediate release tablets Oxybutynin extended release tablets Oxybutynin patch tolterodine immediate release tablets trospium immediate releast tablets Julee Elmore PA-C 08/16/2017 8:43 AM Signed Left voicemail for Michelle requesting a good time to call her back. Julee Elmore PA-C 08/19/2017 3:45 PM Signed Spoke with Michelle. Explained below. WIll start with oxybutyninXL 15mg She will call to schedule follow up appointment. Patient's request for medication is as follows: Signed Prescriptions Disp Refills oxybutynin ER (DITROPAN XL) 15 mg 24 hr Extended Rel Tab 30 tablet 5 Sig: Take 1 tablet by mouth once daily. Authorizing Provider: JULEE ELMORE) Prescription(s) as above. Please process accordingly. SANDRO Loving PA-C 08/19/2017 3:45 PM Signed Addended by: JULEE ELMORE PA-C on: 08/19/2017 03:45 PM Modules accepted: Orders Allergies As of Date: 08/14/2017 Noted Allergy Reaction ADHESIVE TAPE (ROSINS) 03/27/2006 9 - Itching LATEX 01/10/2011 2 - Rash SIMVASTATIN 11/04/2012 14 - Other: See Comments Comments: myalgia Date Reviewed: 08/07/2017 Reviewed by: Julee Elmore (Pa) - Fully Assessed Reason for Visit: Sultanabetriq Denied [Other] Order(s):oxybutynin ER (DITROPAN XL) 15 mg 24 hr Extended Rel TabTake 1 tablet by mouth once daily.Disp: 30 tabletRfl: 5 Prescriptions as of 08/14/2017 Sig: OXYBUTYNIN CHLORIDE ER 15 MG * Take 1 tablet by mouth once d* ENALAPRIL MALEATE 2.5 MG TABL* Take 1 tablet by mouth once d* FUROSEMIDE 40 MG TABLET TAKE 1 TABLET DAILY SPIRONOLACTONE 25 MG TABLET TAKE 1 TABLET DAILY ATORVASTATIN 10 MG TABLET TAKE 1 TABLET DAILY CARVEDILOL 25 MG TABLET TAKE 1 TABLET TWICE A DAY PANTOPRAZOLE 40 MG TABLET,DEL* TAKE 1 TABLET BY MOUTH TWICE * TRIAMCINOLONE ACETONIDE 0.1 %* Apply to affected area on leg* INSULIN GLARGINE 100 UNIT/ML * Inject 21 Units subcutaneousl* METFORMIN 500 MG TABLET Take by mouth. 2 pills in AM* ASPIRIN 81 MG TABLET,DELAYED * Take 1 tablet by mouth once d* LORATADINE 10 MG TABLET Take 1 tablet by mouth once d* ALOGLIPTIN 25 MG TABLET Take 1 tablet by mouth once d* PRAMIPEXOLE 0.75 MG TABLET Take 0.75 mg by mouth daily a* MAGNESIUM OXIDE 400 MG TABLET Take 1 tablet by mouth twice * FLUTICASONE 50 MCG/ACTUATION * Use 2 Sprays in each nostril * daPulse ULTRA TEST STRIPS USE TO TEST BLOOD SUGAR THREE* LANCETS Test blood sugar(s) 3 times d* BLOOD-GLUCOSE METER KIT 1 Each as needed. ALBUTEROL SULFATE HFA 90 MCG/* Inhale 2 Puffs as instructed * REPAGLINIDE 2 MG TABLET Take 1-2 tablets each meal Patient taking differently: Take 1-2 tablets three times * INSULIN SYRINGE-NEEDLE U-100 * Use 1 syringe for each dose 1* PEN NEEDLE, DIABETIC 31 GAUGE* Use one needle per dose. 1 pe* Problem List As Of Date 08/14/2017 Noted Resolved Pure hypercholesterolemia [E78.00] Priority: A Diabetes mellitus (HCC) [E11.9] 08/16/2016 Priority: Moderate More... Essential hypertension, benign [I10] Priority: B Unspecified disorder of joint [719.9] 11/23/2016 More... 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 Cardiomyopathy, nonischemic [I42.8] INVALID FOR* Abnormality of gait [R26.9] INVALID FOR* DM (diabetes mellitus), type 2, uncontrolled w/*INVALID FOR*12/21/2015 Chronic nausea [R11.0] INVALID FOR*09/01/2015 Ganglion cyst of right foot [M67.471] INVALID FOR* ICD (implantable cardioverter-defibrillator) in*INVALID FOR*08/16/2016 Biventricular ICD (implantable cardioverter-def*INVALID FOR* Uncontrolled type 2 diabetes mellitus with diab*INVALID FOR* Neuropathy (HCC) [G62.9] INVALID FOR*08/16/2016 Restless leg syndrome [G25.81] INVALID FOR* Peroneal tendinitis [M76.70] INVALID FOR* Pain in joint, ankle and foot [M25.579] INVALID FOR* Prescriptions ordered this encounter Disp Refills Start End OXYBUTYNIN CHLORIDE ER 15 MG TABLET,* 30 t* 5 08/19/2017 Route: ORAL Sig: Take 1 tablet by mouth once daily. Medications Discontinued During This Encounter mirabegron (MYRBETRIQ) 50 mg Tb24 30 t* 11 08/07/2017 08/19/2017 Route: ORAL Sig: Take 1 tablet by mouth once daily. Disc: Reason for discontinue is not on file. oxybutynin (DITROPAN) 5 mg tablet 90 t* 11 03/28/2017 08/19/2017 Route: ORAL Sig: Take 1 tablet by mouth three times daily. Disc: Reason for discontinue is not on file. Encounter Status:Closed by CHELY JAQUEZ MA on 08/19/17 ALLERGIES ALLERGIES DATE TYPE / CODE NAME / CODE REACTION SEVERITY SOURCE 08/04/2018 Drug Latex, Natural Rash Unknown [place] Allergy/269990243( Rubber/[id number] [facility] SNOMED [facility]) 6(RXNORM) Hospital Repository 08/04/2018 Drug simvastatin/F006 Unknown SV [place] Allergy/780389950( [facility]99[facility] 07/22/2018 DRUG METFORMIN OTHER: SEE [place]aine [place] INGREDI/600596143( [facility] SNOMED [facility]) [place] Repository 11/04/2012 DRUG SIMVASTATIN OTHER: SEE Tremaine [place] INGREDI/481440657( [facility] SNOMED [facility]) [place] Repository 01/10/2011 DRUG LATEX RASH [place] INGREDI/526814853( [facility] SNOMED [facility]) [place] Repository 03/27/2006 Chemical/324960081 ADHESIVE TAPE ITCHING [place] (SNOMED CT) (ROSINS) [facility] [place] Repository Miscellaneous No Known Moderate [place] Allergy/651540537( Allergies ([facility]) Modifier) [facility] (Qualifier Repository Value) NG/173318945(SNOME ADHESIVE TAPE [facility]) (ROSINS) Health System Repository NG/864240735(SNOME LATEX [facility]) Health System Repository NG/389217019(SNOME SIMVASTATIN [facility]) Health System Repository ENCOUNTERS ENCOUNTERS ADMIT/DISCHARGE ACCOUNT ADMITTING ENCOUNTER LOCATION SOURCE NUMBER CLASS 08/08/2018 [id number] Ambulatory [facility] ding:PT Repository 08/04/2018/ [id number] Emergency [address] ding:ED Repository 07/30/2018/ [id number] Ambulatory BMSBuilding: [address] Repository 07/30/2018/ [id number] Ambulatory [address] [place] Repository 07/29/2018/ [id number] Emergency [address] ding:ED Repository 07/29/2018/ [id number] Ambulatory [place] [address] [place] [address] Main [place] Repository 07/22/2018/ [id number] Ambulatory [address] Main [place] Repository 07/21/2018/ [id number] Ambulatory [address] Main [place] Repository 06/22/2018/ [id number] Emergency [address] ding:ED Repository 06/20/2018 [id number] Ambulatory [facility] ding:SDC Repository 06/17/2018/ [id number] Ambulatory [facility] [place] Repository 06/17/2018/ [id number] Ambulatory [facility] [place] Repository 06/13/2018/ [id number] Ambulatory [place] [facility]18 [facility] Other [place] Repository 06/13/2018/ [id number] [facility] 06/11/2018/ [id number] Ambulatory [place] 018 [facility] [place] Repository 06/03/2018/ [id number] Ambulatory BMSBuilding: [place] 018 [facility] Repository 05/30/2018/ [id number] LETICIA COHEN Ambulatory [place] 018 [facility] Repository 05/26/2018/ [id number] Ambulatory [place] 018 [facility] [place] Repository 05/21/2018/ [id number] Ambulatory [place] 018 [facility] [place] Repository 05/08/2018/ [id number] Ambulatory [place] 018 [facility] [place] Repository 05/08/2018/ [id number] Ambulatory [place] 018 [facility] [place] Repository 05/08/2018/ [id number] Ambulatory [place] 018 [facility] Repository 05/06/2018/ [id number] Ambulatory BMSBuilding: [place] 018 [facility] Repository 05/02/2018/ [id number] Ambulatory [address] Repository 05/02/2018/ [id number] [address] ng:AGCARDPOB Repository 04/30/2018 [id number] Ambulatory [facility] ding:LAB Repository 04/16/2018 [id number] Ambulatory BMSBuilding: [place] [facility] Repository 04/01/2018/ [id number] Ambulatory [address] Repository 03/24/2018 [id number] Ambulatory [facility] ding:LAB Repository 03/24/2018/ [id number] Ambulatory BMSBuilding: [place] 018 [facility] Repository 03/20/2018 [id number] [facility] Rep[facility] 03/12/2018/ [id number] LILO WHEELER Ambulatory [place] 018 [facility] Repository 03/12/2018/ [id number] VITEBSKIY, LILO Inpatient [facility] 018 [facility]AKEPR[facility]: Repository POOLBed: 02 03/04/2018/ [id number] Emergency [address] ding:ED Repository 03/04/2018 [id number] Ambulatory [facility] ding:LABSPEC Repository 03/04/2018/ [id number] Ambulatory [place] [facility] [place] Repository 03/04/2018/ [id number] Ambulatory [facility] [place] Repository 03/04/2018/ [id number] Ambulatory [place] [facility] [place] Repository 03/04/2018/ [id number] Ambulatory [place] [facility] [place] Repository 02/28/2018/ [id number] Ambulatory [place] [facility]18 [facility] Other [place] Repository 02/28/2018/ [id number] [facility] A 02/19/2018/ [id number] Ambulatory [place] [facility] [place] Repository 02/15/2018/ [id number] Ambulatory [place] [facility] [place] Repository 02/15/2018/ [id number] Ambulatory [place] [facility] [place] Repository 02/14/2018/ [id number] Ambulatory [place] 018 [facility] Other [place] Repository 02/14/2018/ [id number] Ambulatory [facility] 018 [facility] ng:AKEPD Repository 01/14/2018/ [id number] Ambulatory BMSBuilding: [place] 018 [facility] Repository 12/12/2017/ [id number] Ambulatory [place] 018 [facility] [place] Repository 12/12/2017/ [id number] Ambulatory AKRON [place] 018 [facility] ng:AGCARDPHR Repository A 12/12/2017 [id number] Ambulatory [facility] [place] Repository 12/12/2017 [id number] [facility] Rep[facility] 12/03/2017/ [id number] Ambulatory [place] 018 [facility] [place] Repository 11/15/2017/ [id number] Ambulatory [place] 018 [facility] [place] Repository 11/07/2017/ [id number] Julian Ham Ambulatory Kendrick [place] 018 [facility] ding:PCURoom Repository : [id number]: 1 11/07/2017 [id number] Julian Ham Ambulatory BMSBuilding: [place] [facility] Repository 11/07/2017 [id number] Julian Ham Ambulatory BMSBuilding: [place] [facility] Repository 11/07/2017/ [id number] Ambulatory BMSBuilding: [place] 018 [facility] Repository 10/30/2017/ [id number] Ambulatory [place] 018 [facility] Repository 10/24/2017/ [id number] Ambulatory [place] 018 [facility] [place] Repository 10/24/2017/ [id number] Ambulatory AKRON [place] 018 [facility] ng:CAGWS Repository 10/24/2017/ [id number] Ambulatory [place] 018 [facility] Repository 10/24/2017/ [id number] Ambulatory AKRON [place] 018 [facility]:CAGWS Repository 10/23/2017/ [id number] Ambulatory [place] 018 [facility] [place] Repository 10/07/2017/ [id number] Ambulatory BMSBuilding: [place] 018 [facility] Repository 09/11/2017/ [id number] Ambulatory [place] 018 [facility] [place] Repository 09/09/2017/ [id number] Ambulatory BMSBuilding: [place] 018 B[facility] Repository PAYERS PAYERS ENCOUNTER GUARANTOR PAYER SUBSCRIBER SOURCE 08/08/2018 MICHELLE Mcguire Primary Insurance:[facility] MICHELLE [id number] [facility] [place]: [address] Number: [id number] Hospital [address]Nws: 330 [id number] Repository [phone] () Date:3349-21-57DI [address] [address]XJ: 08/08/2018 Secondary NOT GIVENUNK [place] Insurance:SELF PAY [facility] Effective Repository Date:2018-06-24 08/04/2018 MICHELLE S Primary Insurance:[facility] MICHELLE Mcguire [place] [id number] TR [facility] PLANPolicy NORRISDOB: [facility], [place] Number: [id number] Hospital [address]Hoa: 330 [id number] Repository [phone] () Date:4896-48-50EM [address] [address]NC: 08/04/2018 Secondary NOT GIVENUNK [place] Insurance:SELF PAY [facility] Number: Effective Repository Date:2018-08-04 07/30/2018 MICHELLE S Primary Insurance:[facility] MICHELLE S [place] [id number] [facility] PLANPolicy NORRISDOB: [facility], [place] Number: [id number] Hospital [address]Mtg: 330 [id number] Repository [phone] () Date:2479-65-40WM [address] [address]VI: 07/30/2018 Secondary NOT GIVENUNK [place] Insurance:SELF PAY [facility] Number: Effective Repository Date:2018-07-30 07/29/2018 MICHELLE S Primary Insurance:[facility] MICHELLE S [place] [id number] [facility] PLANPolicy NORRISDOB: [facility], [place] Number: [id number] Hospital [address]Fuf: 330 [id number] Repository [phone] () Date:4812-28-21VB [address] [address]SV: 07/29/2018 Secondary NOT GIVENUNK [place] Insurance:SELF PAY [facility] Number: Effective Repository Date:2018-07-29 06/22/2018 MICHELLE S Primary Insurance:[facility] MICHELLE S [place] [id number] TR [facility]ANEn[facility] NORRISDOB: [facility] [address]Cath[place] Number: [id number] Hospital [address]Ons: [phone]) [id number] Repository [phone] (HP) Date:0946-01-67KO [address] [address]YQ: 06/22/2018 Secondary NOT GIVENUNK [place] Insurance:SELF PAY [facility] Number: Effective Repository Date:2018-06-22 06/20/2018 MICHELLE S Primary Insurance:[facility] MICHELLE Mcguire [place] [id number] [facility]: [facility] 32[facility] [place] Number: [id number] Hospital 265[address]Fft: [phone]) [id number] Repository [phone] (HP) Date:2256-35-50RT [address] [address]QE: 06/20/2018 Secondary NOT GIVENUNK [place] Insurance:SELF PAY [facility] Number: Effective Repository Date:2018-04-30 06/13/2018 MICHELLE Mcguire Primary Insurance:[facility] MICHELLE [facility]ire [facility]: Health System [id number] MEDICAIDPolicy [id number] Number: [place] [id number] [address]Mlu: 330) Date: [phone] (HP) 06/03/2018 MICHELLE Mcguire Primary Insurance:[facility] MICHELLE Mcguire [place] [id number] [facility] Center[facility]: [address] Number: [id number] Hospital [address]Epv: (258) [id number] Repository [phone] (HP) Date:3684-63-41LV [address] [address]AJ: 06/03/2018 Secondary NOT GIVENUNK [place] Insurance:SELF PAY [facility] Number: Effective Repository Date:2018-06-03 05/30/2018 MICHELLE S Primary MICHELLE Mcguire Bairon Jack CHELMSFORDDOB: Insurance:[facility]: [facility] [id number] [facility] [id number] [facility] OUTPATPhuntington hospitaly [address] [place] [address] Repository [place] Number: Jerry SHANKAR [address]Iha: [phone] [phone] (HP) Date:Plan Name:[id number] 05/06/2018 MICHELLE Mcguire Primary Insurance:[facility] MICHELLE Mcguire [place] [id number] TR [facility] PLANPolicy TROYERDOB: [facility] [place], [place] Number: [id number] [facility] [address]Rho: [phone] [id number] Repository [phone] (HP) Date:1751-77-26SY [address] [address]EV: 05/06/2018 Secondary NOT GIVENUNK [place] Insurance:SELF PAY [facility] Number: Effective Repository Date:2018-05-06 05/02/2018 MICHELLE Mcguire Primary Insurance:[facility] MICHELLE Mcguire [facility] NORRISDOB: COMMUNITY PLAN NORRISDOB: [facility] [id number] MEDICAIDPolicy [id number] [facility] [address] Number: 32[place]YALA [id number] [id number]: (330) Date: [phone] (HP) 04/30/2018 MICHELLE Mcguire Primary Insurance:[facility] MICHELLE Mcguire [place] [id number] [facility] PLANEn[facility] Rehabilitation [facility] TROYERDOB: [facility] [place], [place] Number: [id number] Hospital [address]Fqt: (001) [id number] Repository [phone] (HP) Date:2892-80-63PS [address] [address]QN: 04/30/2018 Secondary NOT GIVENUNK [place] Insurance:SELF PAY [facility] Number: Effective Repository Date:2018-04-30 04/16/2018 MICHELLE Mcguire Primary Insurance:[facility] MICHELLE Mcguire [place] [id number] [facility] PLANBanner Rehabilitation Hospital WesticKnox County HospitalYERDOB: [facility] [place], [place] Number: [id number] Hospital [address]Pur: [phone] [id number] Repository [phone] (HP) Date:4801-95-27OM [address] [address]VL: 04/16/2018 Secondary NOT GIVENUNK [place] Insurance:SELF PAY [facility] Number: Effective Repository Date:2018-01-14 03/24/2018 MICHELLE S Primary Insurance:[facility] MICHELLE Mcguire [place] [id number] TR [facility] PLANPolicy TROYERDOB: [facility] [place], [place] Number: [id number] [facility] [address]Fgf: [phone]) [id number] Repository [phone] () Date:5950-78-97UD [address] [address]GB: 03/24/2018 Secondary NOT GIVENUNK [place] Insurance:SELF PAY [facility] Number: Effective Repository Date:2018-03-24 03/24/2018 MICHELLE S Primary Insurance:[facility] MICHELLE Mcguire [place] [id number] [facility] PLANBanner Rehabilitation Hospital Westicy TROYERDOB: [facility] [place] Number: [id number] Hospital [address]Yhu: ([phone]) [id number] Repository [phone] () Date:9216-73-89AA [address] [address]FG: 03/24/2018 Secondary NOT GIVENUNK [place] Insurance:SELF PAY [facility] Number: Effective Repository Date:2018-03-24 03/20/2018 MICHELLE S Primary Insurance:[facility] MICHELLE Mcguire [facility] TROYERDOB: COMMUNITY PLAN TROYERDOB: [facility] MEDICAIDEncompass Health Rehabilitation [facility] [id number] Repository [facility] [address] Number: [address] [id number] [address]Lmr: ([phone]) Date: [phone] () 03/12/2018 MICHELLE S Primary Insurance:[facility] MICHELLE Mcguire [facility] TROYERDOB: COMMUNITY PLAN TROYERDOB: [facility] MEDICAIDPolicy [id number] Repository [facility] [address] Number: [address] [id number]: (330) Date: 377 (HP) 03/04/2018 MICHELLE S Primary Insurance:[facility] MICHELLE Mcguire [place] [id number] TR [facility] PLANPolicy TROYERDOB: [facility] 32[facility]EMIAHSA[facility] SPRINGSCathleentitus[place], [place] Number: [id number] Hospital [address]Jji: (330) [id number] Repository [phone] (HP) Date:8047-10-19EG[address] [address]WX: 03/04/2018 Secondary NOT GIVENUNK [place] Insurance:SELF PAY [facility] Number: Effective Repository Date:2018-03-04 03/04/2018 MICHELLE S Primary Insurance:[facility] MICHELLE Mcguire [place] [id number] TR [facility] PLANPolicy TROYERDOB: [facility] 32J[facility]EMIAHSAINT M[facility] SPRINGSCathleentitus[place], [place] Number: [id number] Hospital [address]Tce: ([phone]) [id number] Repository [phone] () Date:7869-29-38XF[address] [address]PK: 03/04/2018 Secondary NOT GIVENUNK [place] Insurance:SELF PAY [facility] Number: Effective Repository Date:2018-03-04 02/28/2018 MICHELLE S Primary Insurance:[facility] MICHELLE Mcguire [facility] TROYERDOB: COMMUNITY PLAN TROYERDOB: [facility] MEDICAIDBanner Rehabilitation Hospital Westic [id number] Repository [facility] [address] Number: [address] [id number] [address]Rfb: (330) Date: [phone] (HP) 02/14/2018 MICHELLE S Primary Insurance:[facility] MICHELLE Mcguire [facility] TROYERDOB: COMMUNITY PLAN TROYERDOB: [facility] MEDICAIDPolicy [id number] Repository [facility] [address] Number: [place], [place] [id number] [address]Rya: (330) Date: [phone] (HP) 01/14/2018 MICHELLE KONG Primary Insurance:[facility] MICHELLE KONG [place] [id number] TR [facility] PLANPolicy TROYERDOB: [facility] 32GLJEREMIAHSAINT MARY'[facility] BL[facility] SPRINGSCathleentitus[place], [place] Number: [id number] Hospital [address]Yzc: ([phone]) [id number] Repository [phone] (HP) Date:4625-82-23SL [address] [place] [address]QV: 01/14/2018 Secondary NOT GIVENUNK [place] Insurance:SELF PAY [facility] Number: Effective Repository Date:2018-01-14 12/12/2017 MICHELLE Mcguire Primary Insurance:[facility] MICHELLE [facility] TROYERDOB: COMMUNITY PLAN TROYERDOB: [facility] MEDICAIDEncompass Health Rehabilitation [facility] [id number] Repository [address], Number: [place] [address]Fds: [id number] Date: (HP) 12/12/2017 MICHELLE S Primary Insurance:[facility] MICHELLE [facility] TROYERDOB: COMMUNITY PLAN TROYERDOB: [facility] MEDICAIDEncompass Health Rehabilitation [facility] [id number] Repository TR 32[facility]ENSA[facility] SPRINGST, Number: [place] [address]Oem: [id number] Date: (HP) 11/07/2017 MICHELLE KONG Primary Insurance:[facility] MICHELLE KONG [place] [id number] N [facility] TROYERDOB: [facility] Number: [id number] [place], [place] [id number] Repository [address]Qjp: (330) Date:6676-88-73VU [phone] () [address] [place] [address]MK: 11/07/2017 Secondary NOT GIVENUNK [place] Insurance:SELF PAY [facility] Number: Effective Repository Date:2017-11-07 11/07/2017 MICHELLE CALZADAE Primary Insurance:[facility] MICHELLE KONG [place] [id number] N [facility] PLANEncompass Health Rehabilitation [facility] TROYERDOB: [facility] Number: [id number] [place], [place] [id number] Repository [address]Ohy: (330) Date:3047-05-44WK [phone] (HP) [address] [place] [address] 49[address]NZ: 11/07/2017 Secondary NOT GIVENUNK [place] Insurance:SELF PAY [facility] Number: Effective Repository Date:2017-11-07 11/07/2017 MICHELLE KOGN Primary Insurance:[facility] MICHELLE KONG [place] [id number] N COMMUNITY PLANPolicy TROYERDOB: [facility] Number: [id number] [place], [place] [id number] Repository [address]Mqo: (330) Date:1392-36-79VR [phone] () [address] [place], [place] [address]P: 11/07/2017 Secondary NOT GIVENUNK [place] Insurance:SELF PAY [facility] Number: Effective Repository Date:2017-11-07 11/07/2017 MICHELLE KONG Primary Insurance:[facility] MICHELLE KONG [place] [id number] N [facility] PLANPolicy TROYERDOB: [facility] Number: [id number] [place], [place] [id number] Repository [address]Ywu: (330) Date:8338-80-34JX [phone] () [address] [place] [address] 96[address]DZ: 11/07/2017 Secondary NOT GIVENUNK [place] Insurance:SELF PAY [facility] Number: Effective Repository Date:2017-11-07 10/24/2017 MICHELLE S Primary Insurance:[facility] MICHELLE Mcguire [facility] TROYERDOB: COMMUNITY PLAN TROYERDOB: [facility] N MEDICAIDEncompass Health Rehabilitation [facility] [id number] [facility] Number: [place] [id number]: (330) Date: [phone] () 10/24/2017 MICHELLE S Primary Insurance:[facility] MICHELLE S [facility] TROYERDOB: COMMUNITY PLAN TROYERDOB: [facility] N MEDICAIDEncompass Health Rehabilitation [facility] [id number] [facility] Number: [place] [id number] [address]Gfs: (330) Date: [phone] (HP) 10/07/2017 MICHELLE Primary Insurance:[facility] MICHELLE [place] [id number] N COMMUNITY PLANPolicy TROYERDOB: [facility] Number: [id number] [place], [place] [id number] Repository [address]Kel: (330) Date:2370-85-95IW [phone] () [address] [place] [address]DI: 10/07/2017 Secondary NOT GIVENUNK [place] Insurance:SELF PAY [facility] Number: Effective Repository Date:2017-10-07 09/09/2017 MICHELLE Primary Insurance:[facility] MICHELLE [place] [id number] N [facility] TROYERDOB: [facility] Number: [id number] [place], [place] [id number] Repository [address]Lro: (330) Date:5397-06-42IL [phone] () [address] [place] [address] 21[address]PC: 09/09/2017 Secondary NOT GIVENUNK [place] Insurance:SELF PAY [facility] Number: Effective Repository Date:2017-09-09
== END 2018-08-04 19:00 | disposition home or self-care (01) ==
PROVIDERS: Emergency Provider Emergency Medicine; Family Provider Family Medicine; PCP Family Medicine
DX: B34.9 Viral infection, unspecified (principal); J02.9 Acute pharyngitis, unspecified; R05 Cough; I25.10 Atherosclerotic heart disease of native coronary artery without angina pectoris; I42.0 Dilated cardiomyopathy; E11.9 Type 2 diabetes mellitus without complications; I10 Essential (primary) hypertension; E78.00 Pure hypercholesterolemia, unspecified; Z79.82 Long term (current) use of aspirin; Z79.4 Long term (current) use of insulin; Z79.899 Other long term (current) drug therapy; Z95.810 Presence of automatic (implantable) cardiac defibrillator; Z90.49 Acquired absence of other specified parts of digestive tract
CPT/HCPCS: 71046; 80048; 85025; 87804; 96361; 96374; 99283; J7030; A4216

== ENCOUNTER 2018-08-26 13:00 | Outpatient (RCR) | payer MEDICAID, SELFPAY ==
--- NOTE | 2018-07-22 14:46 | HP.PTEVAL_ITS ---
Patient's Visit Information DOLORES SALMERON is a 53 year old F referred to Physical Therapy by Yesenia Lowe DPM with a diagnosis of B foot bursitis. Date of Evaluation: 07/22/18 Physical Therapist: LATASHA Heck - Visit Plan Frequency: 2x /Week Duration: 4 Weeks Plan: [place] is not covered. 2X/ week for 4 weeks for B ankle AROM, PROM, stretching, strengthening, with HEP. Also US to the arch of B feet. - Subjective Findings: Pt reports that Having issues with swelling on the bottom of feet. She is having pain over arch of B feet and on the lateral side of the foot. The swelling started about a year ago. Dr wants her to have PT. Pt can feel her feet but they ar kind of numb in her toes and that has been there for about a year. She has fallen twice in the bathtub while she was trying to step out and her foot slide. She has some tingling in her feet. She can go up and down steps....some days she can and some days she can't cause it hurts to walk on her feet. Pt is going to have to have L knee surgery due to spurs and arthritis. She will have that as soon as she gets her sugar under control. - Pain R foot pain Pain Intensity (Out of 10): 4 L foot pain Pain Intensity (Out of 10): 4 - Objective R ankle AROM: -2 degrees from neutral and 43 degrees PF, 32 degrees INV, 9 degrees EV. L ankle AROM: 5 degrees and 43 degrees PF, 7 degrees EV and 21 degrees INV. Tight gastroc B. Girth measurements: R lat- med mal 24.7 and L 25.1, Figure 8 R 51 and L 50.7 and met heads R 22.5 and L 23.9 cm. Pt is able to heel and toe raise but pt definity has instability especially with heel raise. Gait: walks with shorter stride and decreased DF. . - Goals Goal 1:: I HEP Goal Time Frame: 4-6 Weeks Goal 2:: Increase B ankle DF 8 degrees DF B Goal Time Frame: 4-6 Weeks Goal 3:: Decrease B foot pain to 1/10 with ADL's Goal Time Frame: 4-6 Weeks - Rehabilitation Potential Rehabilitation Potential: Good - Anticipated Interventions Patient/Client Instruction: Educate patient on: Condition, Plan of Care For the Purpose of:: To decrease pain, To decrease swelling/inflammation, To increase ROM, To improve nutrient delivery to tissue, To improve muscle performance and motor function, To improve ability to perform ADL's, To increase tolerance to activity/condition/position, To improve gait and locomotor functions, To improve health of tissue, To decrease soft tissue restriction, To increase flexibility/ROM Therapeutic Exercise to Include: Strength training, Balance training, Flexibilty training, Gait and locomotor training, Passive ROM, Active ROM For the Purpose of:: To decrease pain, To decrease swelling/inflammation, To increase ROM, To improve nutrient delivery to tissue, To improve muscle performance and motor function, To increase tolerance to a ctivity/condition/position, To improve ability of physical actions for home/community/work/leisure, To improve gait and locomotor functions, To improve health of tissue, To decrease soft tissue restriction, To increase flexibility/ROM, To improve balance Manual Therapy Techniques to Include: Passive ROM For the Purpose of:: To increase ROM, To decrease soft tissue restriction Ultrasound (thermal/non thermal): Yes For the Purpose of:: To decrease pain, To decrease swelling/inflammation, To improve nutrient delivery to tissue Thank you for the opportunity to evaluate your patient. For Medicare and Medicare HMO plans, please review the plan of care and approve it. It will need to be FAXED BACK to us at [phone] for Medicare purposes. For Medicare only, by signing this I certify the plan of care. Please let me know if there are questions or concerns regarding this plan of care. Physician Signature: Date:
--- NOTE | 2018-08-26 13:44 | HP.PTDCSUM ---
HP - PT D/C Summary It has been my pleasure to treat DOLORES SALMERON under orders from Yesenia Lowe DPM, for the diagnosis of B foot bursitis for a total of 8 visit(s). Discharge Date: 08/26/18 Please see the following information for a summary of their discharge status. - Subjective Subjective: Pt reports that she has a Dr appointment on September 19 for her foot as they are not getting much better. Pt reports that her pain is there and it never goes away. SHe feels good for an hour after PT but after that hour it starts aching again. - Pain R foot pain Pain Intensity (Out of 10): 2 L foot pain Pain Intensity (Out of 10): 4 - Overall Improvement % Improvement: 50 - Objective Objective/Function: Pain goal not met. Pt's B ankle AROM into DF is 8 degrees B - Goals Goal 1:: I HEP Goal Progress: Goal Met Goal 2:: Increase B ankle DF 8 degrees DF B Goal Progress: Goal Met Goal 3:: Decrease B foot pain to 1/10 with ADL's Goal Progress: Not Progressing - Plan Plan: DC PT to HEP and physician reassessment - D/C Information Discharge Comments: DC PT to HEP If there are questions or concerns regarding this patient's physical therapy, please feel free to call me at [phone]. Thank you for the referral of this patient. Sincerely, Gretchen Bledsoe, MPT
== END 2018-08-26 19:00 | disposition home or self-care (01) ==
LOC: PT 13:00
PROVIDERS: Family Provider Family Medicine; PCP Family Medicine; Referring Provider Podiatrist Foot & Ankle Surgery; Visit Provider Podiatrist Foot & Ankle Surgery
DX: M77.51 Other enthesopathy of right foot and ankle (principal); M77.52 Other enthesopathy of left foot and ankle; E11.40 Type 2 diabetes mellitus with diabetic neuropathy, unspecified; E11.65 Type 2 diabetes mellitus with hyperglycemia
CPT/HCPCS: 97035; 97110; 97140; 97161

== ENCOUNTER 2019-03-09 10:27 | Outpatient (RCR) | payer MEDICAID, SELFPAY ==
[2018-09-09 12:27] VITALS: BMI 33.8
--- NOTE | 2019-03-10 15:01 | HP.OTFCE_ITS ---
HP OT Functional Capacity Eval Date of Evaluation: 03/09/19 - Task Lift Floor (Occasional 1-33% of Day): 35 lbs Floor (Frequent 34-66% of Day): 20 lbs Floor (Constant 67-100% of Day): 8 lbs Floor PDL: Light-Medium Knee (Occasional 1-33% of Day): 30 lbs Knee (Frequent 34-66% of Day): 20 lbs Knee (Constant 67-100% of Day): 8 lbs Knee PDL: Light Waist (Occasional 1-33% of Day): 30 lbs Waist (Frequent 34-66% of Day): 15 lbs Waist (Constant 67-100% of Day): negligible Waist PDL: Light Shoulder (Occasional 1-33% of Day): 25 lbs Shoulder (Frequent 34-66% of Day): 15 lbs Shoulder (Constant 67-100% of Day): negligible Shoulder PDL: Light Overhead (Occasional 1-33% of Day): 20 lbs Overhead (Frequent 34-66% of Day): 15 lbs Overhead (Constant 67-100% of Day): negligible Overhead PDL: Light - Work Activity/Posture Bending: Frequent Ability (34-66% of day) Squatting: Occasional Ability (1-33% of day) Kneeling: Occasional Ability (1-33% of day) Comments: 1-10%; should avoid due to safety. Reaching out: Frequent Ability (34-66% of day) Reaching up: Frequent Ability (34-66% of day) Sitting: Frequent Ability (34-66% of day) Walking: Frequent Ability (34-66% of day) Standing: Frequent Ability (34-66% of day) - Reference Duration Sedentary Sedentary Light Light Light Medium Medium Medium Heavy Very Heavy Heavy Occasional (0-33% of day) Frequent (34-66% of day) Constant (67-100% of day) 10 # Negligible Negligible 15 # 8 # Negligible 20 # 10# Negli. 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 Huynh (spelling uncertain by patient) as she has defibrillator that was replaced over two years ago. No hard copy of these restriction provided by referring physician to therapist to indicate if these restrictions are still in effect. 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 Completed material handling based on body mechanics and mechanical changes during task. Heart rate was monitored consistently throughout to ensure client safety. - Diagnoses Diagnoses: Past Medical History: Diabetes mellitus type two, cardiac defibrillator, arthritis at multiple joints (knees and shoulder), chronic low back pain, bilateral plantar fasciitis, and adventitial bursitis. 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 Medications: - Zoloft 100 mg 1x daily. - Insulin. - Flonase. - Allergy pills - Symptoms Symptoms: Jony noted that her pain symptoms fluctuate daily and are intermitte ntly. She noted pain is an achy feeling over joints typically shoulder and knees. She does not take prescription pain medications currently. She noted that she will take 1x extra strength Tylenol when symptoms maximize. - Pain Pain: She is not currently on pain medication program. She does receive counseling services one time weekly for depression and anxiety. She noted she has seen physical therapy for bilateral foot pain due to bursitis but is currently not receiving services or on pain management program. No imaging have been completed on spine to determine cause of increased pain symptoms within last six months to a year. Jimbo Pain Questionnaire is a self-report pain assessment to determine a patient?s accurate psychodynamics for accurate pain rating. A score of 30 or high indicates poor psychodynamics and the greater probability of decreased accuracy with accurate pain reporting. Pre- Jimbo: 19. Post Jimbo: 14. Fear Avoidance Questionnaire (FAQ) is a client self- report assessment for 18-64+ that has shown to be reliable and valid for determining increased fear with movements. A score of 96 or higher indicates increased fear avoidance behaviors. FAQ Pre-testing total: 72. -Fear avoidance belief about work (items 6,7,9,10,11,12,15): 39. -Fear avoidance belief about physical activity (items 2,3,4,5):13. FAQ Post testing total: 82. -Fear avoidance belief about work (items 6,7,9,10,11,12,15): 33. 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 She noted that she worked 24/7 for the couple and was contracted in but did not have caregiving license but was completing the tasks the needed. She noted that she lost that job when patrons both . The last she has worked was 2017. She noted she chose not to go back to work as the situation was ?hard for her? and noted ?I still have depression because of it. - ADLS ADLS: Jony lives with brother, his girlfriend, and girlfriend?s mother in [place], [place]. She was previous resident of [place], [place] for last 21 years. She resides in apartment with family members and noted she does have her own room. She noted there is one step to get into apartment with no handrail. Once in apartment she has first floor set up. She noted she is still able to complete self-care tasks, cooking, cleaning, and does have license but is not driving due to not owning a vehicle of her own at this time. She noted she takes nightly walks around her neighborhood block. She reports needing to take about an hour to get around a block. She noted she spends most of her time coloring. She explained that brother, girlfriends mother have four bird in apartment that?s he helps care for but does not consistently have to care. - Physical Examination Physical Examination: The purpose of this functional capacity evaluation (FCE) was to determine Jony?s physical ability. 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 Aerobic limiting factor: 85% of max adjust HR= (220-age) *.85= 143 bpm. Calculated max weight: 60% of weight= 142 lbs. Diagnostics: - blood pressure: 117/70 mmHg. - heart rate: 60 bpm. - oxygen at room temperature: 97%. - perceived pain with use of pain scale: 7/10- unreliable ROM: Shoulder: - flexion: R 0-133, L 0-135. - abduction: R 0-139, L 0-132. - internal rotation: R 0-70- limited by soft tissue, L 0-57- limited by soft tissue. - external rotation: R 0-84, L 0-88. Knee. - R 0-106, L 0-98- no hyperextension noted on either knee. Strength: Strength measurements completed with use of manual muscle testing and short arm access of dynamometer. Results are as follows: Upper Body: Shoulder flexion: -Dynamometer: R , L. Shoulder extension: -Dynamometer: R 15.8 , L 16.7 lbs. Shoulder abduction: -Dynamometer: R 15.6 , L 14.9 lbs. Shoulder Internal Rotation: -Dynamometer: R 17.5 , L 16.4 lbs. Shoulder External Rotation: -Dynamometer: R 19.1 , L 14.9 lbs. Elbow flexion: - Dynamometer: R 27.6 , L 25.0 lbs. Elbow extension: -Dynamometer: R 19.9 , L 29.2 lbs. Lower Body: -Dynamometer: R , L. Hip flexion: -Dynamometer: R 26.6 , L 19.1 lbs. Hip adduction: -Dynamometer: R 20.8 , L 18.3 lbs. Hip abduction: -Dynamometer: R 16.9 , L 21.4 lbs. Knee Flexion: -Dynamometer: R 29.7 , L 34.4 lbs. Knee extension: -Dynamometer: R 20.8 , L 17.3 lbs. Plantarflexion: -Dynamometer: R 43.6 , L 20.3 lbs. Dorsiflexion: - Dynamometer: R 21.6 , L 39.4. Decreased ability to complete lift off test due to limited mobility. Generally rotator cuff intact. Right Denture Contour Wire Specialist Strength Average: 63.33 Left Denture Contour Wire Specialist Strength Average: 52.33 Right Lateral Pinch Average: 20.33 Left Lateral Pinch Average: 16.66 Right Tripod Pinch Average: 17.00 Left Tripod Pinch Average: 14.00 Comments: Five Span Denture Contour Wire Specialist testing on Dynamometer: Position 1: R 39 , L 38. Position 2: R 67 , L 57. Position 3: R 68 , L 62. Position 4: R 51 , L 54. Position 5: R 49 , L 59. A coefficient of variation greater than 15 % indicated decreased consistency of effort. Coefficient of variation: R 23%, L 17%. Consistency of Effort: inconsistent Sensation: Sensation testing completed on bilateral feet with monofilament touch test. A score of normal on touch test is 2.83 and within normal range with just some discrepancies for light touch is between 3.22-3.61. The higher the number in more complications related to patient?s ability to perceive touch related sensory stimuli. R hand: Thumb 3.22 ,2nd 3.61 , 3rd 2.83 , 4th 2.83 , 5th 3.61. L hand: Thumb 3.61 ,2nd 3.61 , 3rd 3.22 , 4th 3.61 , 5th 3.16. 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 She shows some positive signs for mild carpal tunnel symptoms. Fine Motor: Completed the Purdue Pegboard test to further determine the patient?s ability to complete 2-3 step tasks, assess fine motor control and general dexterity needed to complete assembly like work. The results are as follows: Right Hand: 12. -Percentile: Left Hand: -Percentile. Both Hands: -Percentile. R+ L+ Both: -percentile: Assembly: -percentile: Balance: Functional reach test is used to determine static balance in patients. A score of 15 is normal and less than 10 increases risk of falling. A score of 6 or less significantly increases a patient?s risk of falling. [place] 1: 14. [place] 2: 13. [place] 3: 16.5. Average: 14.5. Functional Gait Assessment (FGA) is a dynamic balance test to determine vestibular functioning and general dynamic balance ability of patient 18-65+. This assessment can be used with clients of various backgrounds to determine functional dynamic balance needed to complete every day work related tasks. 1.Gait Level Surface:3. 2.Change in Gait Speed: 2. 3.Gait with horizontal head turns:1. 4.Gait with vertical head turns:3. 5.Gait and pivot turn:3. 6.Step over obstacle:2. 7.Gait with narrow base of support: 1. 8.Gait with eyes closed: 2. 9.Ambulating Backwards: 2. 10.Steps: 3. Total Score: 22 /maximum score 30 - Non Material Handling Activities Bending: Heart rate prior to beginning with use of pulse oximeter: 86 bpm. 3x, 10x in 57 seconds, and 10x faster in 42 seconds. oJny completed bending from hips with equal weightbearing to bilateral lower extremity. She completed ability to complete full bend. Some gaurded movements observed with paced and slower movements to complete full bend but no increase in heart. Heart rate posttest with use of pulse oximeter: 83 bpm. Perceived pain:8/10. She is not reliable with pain rating based on pain scale provided. Squatting: Heart rate prior to beginning with use of pulse oximeter: 86 bpm. 3x, 10x in 49 seconds, and 10x faster in 31 seconds. Completed with narrow base of support. Obserserved to have equal weightbearing into bilateral lower extremity. Increased mechanical compensatios of increased trunk flexion to promote balance. Completed with ability to complete 50 % of full sqaut. Increased pain behaviors observed of increased pacing of task with increased short five to ten second breaks throughout task. Heart rate posttest with use of pulse oximeter: 84 bpm. Perceived pain:8/10 Kneeling: Heart rate prior to beginning with use of pulse oximeter: 67 bpm. 3x. Completed with right lower extremity in front. Completes with increase dlateral leaning and mechanical compensations to right lower extremity to maintain balance. She exhibit uneqyal weightbearing with task and relies heavily on right side. She exhibits ability to complete 50% of full kneel. Increase in heart rate observed. Heart rate posttest with use of pulse oximeter: 95 bpm. Perceived pain: 9/10- unreliable based on pain rating scale used. Reaching out/up: Reaching out from standing: Heart rate prior to beginning with use of pulse oximeter: 65 bpm. 3x, 10x in 33 seconds, and 10x faster in 32 seconds. Completed with ability to complete full reach. Shows pain behaviors of closing eyes and one wince but pain is no reflective in heart rate. Heart rate posttest with use of pulse oximeter: 98 bpm. Perceived pain:9/10- unreliable pain rating. Reaching up from standing: Heart rate prior to beginning with use of pulse oximeter: 78 bpm. 3x, 10x in 25 seconds, and 10x faster in 23 seconds. Completed reaching up with ability to complete full overhead reach. Slight c ervical flexion observed as Jony closed eyes for task. Shows pain behaviors of closing eyes and one wince but pain is no reflective in heart rate. Heart rate posttest with use of pulse oximeter: 80 bpm. Perceived pain:9/10- unreliable pain rating. Walking: Heart rate prior to beginning with use of pulse oximeter: Heart rate posttest with use of pulse oximeter: Perceived pain: Standing: Jony is able to complete standing with with static and dynamic tasks for 40 minutes consistently. Some mechanical compensations of leaning to right or left sides to promote energy conservation. Sitting: Jony is able to complete 30 minutes of sitting tasks without need for completed freqeunt weight shifts. Climbing Stairs: Heart rate prior to beginning with use of pulse oximeter: 74 bpm. Able to complete one set of stairs with no handrails and mild antalgic gait to left lower extremity. Heart rate posttest with use of pulse oximeter: 101 bpm. Perceived pain: - Dynamic Occasional Lifting Capacity Floor Lift: Heart rate prior to beginning with use of pulse oximeter: 85. Occasional Liftinx 35 lbs. Frequent liftinx 20 lbs. Poor body mechanics. Heart rate posttest with use of pulse oximeter: 91 bpm. Perceived pain: 9/10- unreliable Knee Lift: Heart rate prior to beginning with use of pulse oximeter: 82 bpm. Occasional Liftinx 30 lbs. Frequent liftinx 20 lbs. Heart rate posttest with use of pulse oximeter: 92 bpm. Perceived pain: Waist Lift: Heart rate prior to beginning with use of pulse oximeter: 85 bpm. Occasional Liftinx 30 lbs. Frequent liftinx 15 lbs. Heart rate posttest with use of pulse oximeter: 90 bpm. Perceived pain: 9/10 Shoulder Lift: Heart rate prior to beginning with use of pulse oximeter: 72 bpm. Occasional Liftinx 25 lbs. Frequent liftinx 15 lbs. Poor body mechanics with increased cervical flexion and increased. Heart rate posttest with use of pulse oximeter: 70 bpm. Perceived pain:9/10- unreliable Overhead Lift: Heart rate prior to beginning with use of pulse oximeter: 85 bpm. Occasional Liftinx 20 lbs. Frequent liftinx 15 lbs. wince; cervical flexion, poor mechanics. Heart rate posttest with use of pulse oximeter: 86. Perceived pain: 9/10 Carrying: Did not complete due to time constraints. She was to check if needed. If needed will complete with follow up appointment. Comments: Ending Diagnostics: - blood pressure: 138/73. - heart rate: 67. - oxygen at room temperature with oximeter: 97%
--- NOTE | 2019-03-12 10:49 | HP.FCE ---
HP OT Functional Capacity Eval Date of Evaluation: 03/09/19 - Task Lift Floor (Occasional 1-33% of Day): 35 lbs Floor (Frequent 34-66% of Day): 20 lbs Floor (Constant 67-100% of Day): 8 lbs Floor PDL: Light-Medium Knee (Occasional 1-33% of Day): 30 lbs Knee (Frequent 34-66% of Day): 20 lbs Knee (Constant 67-100% of Day): 8 lbs Knee PDL: Light Waist (Occasional 1-33% of Day): 30 lbs Waist (Frequent 34-66% of Day): 15 lbs Waist (Constant 67-100% of Day): negligible Waist PDL: Light Shoulder (Occasional 1-33% of Day): 25 lbs Shoulder (Frequent 34-66% of Day): 15 lbs Shoulder (Constant 67-100% of Day): negligible Shoulder PDL: Light Overhead (Occasional 1-33% of Day): 20 lbs Overhead (Frequent 34-66% of Day): 15 lbs Overhead (Constant 67-100% of Day): negligible Overhead PDL: Light - Work Activity/Posture Bending: Frequent Ability (34-66% of day) Squatting: Occasional Ability (1-33% of day) Kneeling: Occasional Ability (1-33% of day) Comments: 1-10%; should avoid due to safety. Reaching out: Frequent Ability (34-66% of day) Reaching up: Frequent Ability (34-66% of day) Sitting: Frequent Ability (34-66% of day) Walking: Frequent Ability (34-66% of day) Standing: Frequent Ability (34-66% of day) - Reference Duration Sedentary Sedentary Light Light Light Medium Medium Medium Heavy Very Heavy Heavy Occasional (0-33% of day) Frequent (34-66% of day) Constant (67-100% of day) 10 # Negligible Negligible 15 # 8 # Negligible 20 # 10# Negli. 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 Huynh (spelling uncertain by patient) as she has defibrillator that was replaced over two years ago. No hard copy of these restrictions provided by referring physician to therapist to indicate if these restrictions are still in effect. Generally restrictions are lifted after three months. 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 Completed material handling based on body mechanics and mechanical changes during task. Heart rate was monitored consistently throughout to ensure client safety. - Diagnoses Diagnoses: Past Medical History: Diabetes mellitus type two, cardiac defibrillator, arthritis at multiple joints (knees and shoulder), chronic low back pain, bilateral plantar fasciitis, and adventitial bursitis. Current: Michelle noted she was currently referred for functional capacity evaluation due to erisa attorney referral due to chronic pain. 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 Medications: - Zoloft 100 mg 1x daily. - Insulin. - Flonase. - Allergy pills - Symptoms Symptoms: Michelle noted that her pain symptoms fluctuate daily and are intermittently. She noted pain is an achy feeling over joints typically shoulder and knees. She does not take prescription pain medications currently. She noted that she will take 1x extra strength Tylenol when symptoms maximize. - Pain Pain: She is not currently on pain management program. She does receive counseling services one time weekly for depression and anxiety. She noted she has seen physical therapy for bilateral foot pain due to bursitis but is currently not receiving services or on pain management program. No images have been completed on spine to determine cause of increased pain symptoms within last six months to a year. Jimbo Pain Questionnaire is a self-report pain assessment to determine a patient?s accurate psychodynamics for accurate pain rating. A score of 30 or high indicates poor psychodynamics and the greater probability of decreased accuracy with accurate pain reporting. Pre- Jimbo: 19. Post Jimbo: 14. Fear Avoidance Questionnaire (FAQ) is a client self-report assessment for 18-64+ that has shown to be reliable and valid for determining increased fear with movements. A score of 96 or higher indicates increased fear avoidance behaviors. FAQ Pre-testing total: 72. -Fear avoidance belief about work (items 6,7,9,10,11,12,15): 39. -Fear avoidance belief about physical activity (items 2,3,4,5):13. FAQ Post testing total: 82. -Fear avoidance belief about work (items 6,7,9,10,11,12,15): 33. 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 She noted that she worked 24/7 for the couple and was contracted in but did not have caregiving license but was completing the tasks the needed. She noted that she lost that job when patrons both . The last she has worked was 2017. She noted she chose not to go back to work as the situation was ?hard for her? and noted ?I still have depression because of it. - Behavioral Behavioral: Michelle completed all tasks asked of her. She exhibits some pain related behaviors but not all were matching with physiological response. She exhibits decrease reliability of pain rating based on observation of her physical performance. She noted she is depressed and has had a hard time dealing with loss of last two clients. - ADLS ADLS: Michelle lives with brother, his girlfriend, and girlfriend?s mother in [place], [place]. She was previous resident of [place], [place] for last 21 years. She resides in apartment with family members and noted she does have her own room. She noted there is one step to get into apartment with no handrail. Once in apartment she has first floor set up. She noted she is still able to complete self-care tasks, cooking, cleaning, and does have license but is not driving due to not owning a vehicle of her own at this time. She noted she takes nightly walks around her neighborhood block. She reports needing to take about an hour to get around a block. She noted she spends most of her time coloring. She explained that brother, girlfriends mother have four bird in apartment that?s he helps care for but does not consistently have to care. - Physical Examination Physical Examination: The purpose of this functional capacity evaluation (FCE) was to determine Michelle?s physical ability. 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 Aerobic limiting factor: 85% of max adjust HR= (220-age) *.85= 143 bpm. Calculated max weight: 60% of weight= 142 lbs. Diagnostics: - blood pressure: 117/70 mmHg. - heart rate: 60 bpm. - oxygen at room temperature: 97%. - perceived pain with use of pain scale: 7/10- unreliable ROM: Shoulder: - flexion: R 0-133, L 0-135. - abduction: R 0-139, L 0-132. - internal rotation: R 0-70- limited by soft tissue, L 0-57- limited by soft tissue. - external rotation: R 0-84, L 0-88. Knee. - R 0-106, L 0-98- no hyperextension noted on either knee. Strength: Strength measurements completed with use of manual muscle testing and short arm access of dynamometer. Results are as follows: Upper Body: Shoulder flexion: -Dynamometer: R 20.1 , L 17.2 lbs. Shoulder extension: -Dynamometer: R 15.8 , L 16.7 lbs. Shoulder abduction: -Dynamometer: R 15.6 , L 14.9 lbs. Shoulder Internal Rotation: -Dynamometer: R 17.5 , L 16.4 lbs. Shoulder External Rotation: -Dynamometer: R 19.1 , L 14.9 lbs. Elbow flexion: -Dynamometer: R 27.6 , L 25.0 lbs. Elbow extension: -Dynamometer: R 19.9 , L 29.2 lbs. Lower Body: -Dynamometer: R , L. Hip flexion: -Dynamometer: R 26.6 , L 19.1 lbs. Hip adduction: -Dynamometer: R 20.8 , L 18.3 lbs. Hip abduction: -Dynamometer: R 16.9 , L 21.4 lbs. Knee Flexion: -Dynamometer: R 29.7 , L 34.4 lbs. Knee extension: -Dynamometer: R 20.8 , L 17.3 lbs. Plantarflexion: -Dynamometer: R 43.6 , L 20.3 lbs. Dorsiflexion: -Dynamometer: R 21.6 , L 39.4 lbs. Decreased ability to complete lift off test due to limited mobility. Generally rotator cuff intact. Right Drive Shaft And Steering Post Repairer Strength Average: 63.[address] Shaft And Steering Post Repairer Strength Percentile: [address] Shaft And Steering Post Repairer Strength Average: 52.[address] Shaft And Steering Post Repairer Strength Percentile: 65 th Right Lateral Pinch Average: 20.33 Right Lateral Pinch Percentile: 90th+ Left Lateral Pinch Average: 16.66 Left Lateral Pinch Percentile: 90th+ Right Tripod Pinch Average: 17.00 Right Tripod Pinch Percentile: 90th+ Left Tripod Pinch Average: 14.00 Left Tripod Pinch Percentile: 90th+ Comments: [address] Shaft And Steering Post Repairer testing on Dynamometer: Position 1: R 39 , L 38. Position 2: R 67 , L 57. Position 3: R 68 , L 62. Position 4: R 51 , L 54. Position 5: R 49 , L 59. A coefficient of variation greater than 15 % indicated decreased consistency of effort. Coefficient of variation: R 23%, L 17%. Consistency of Effort: inconsistent Sensation: Sensation testing completed on bilateral feet with monofilament touch test. A score of normal on touch test is 2.83 and within normal range with just some discrepancies for light touch is between 3.22-3.61. The higher the number in more complications related to patient?s ability to perceive touch related sensory stimuli. R hand: Thumb 3.22 ,2nd 3.61 , 3rd 2.83 , 4th 2.83 , 5th 3.61. L hand: Thumb 3.61 ,2nd 3.61 , 3rd 3.22 , 4th 3.61 , 5th 3.16. 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 She shows some positive signs for mild carpal tunnel symptoms. Fine Motor: Completed the Purdue Pegboard test to further determine the patient?s ability to complete 2-3 step tasks, assess fine motor control and general dexterity needed to complete assembly like work. The results are as follows: Right Hand: 12. -Percentile: 3rd. Left Hand: 10. -Percentile: below 1st. Both Hands: 8. -Percentile: below 1st. R+ L+ Both: 30. -percentile: below 1st. Assembly: 4. -percentile:below 1st Balance: Functional reach test is used to determine static balance in patients. A score of 15 is normal and less than 10 increases risk of falling. A score of 6 or less significantly increases a patient?s risk of falling. [place] 1: 14. [place] 2: 13. [place] 3: 16.5. Average: 14.5. Functional Gait Assessment (FGA) is a dynamic balance test to determine vestibular functioning and general dynamic balance ability of patient 18-65+. This assessment can be used with clients of various backgrounds to determine functional dynamic balance needed to complete every day work related tasks. 1.Gait Level Surface:3. 2.Change in Gait Speed: 2. 3.Gait with horizontal head turns:1. 4.Gait with vertical head turns:3. 5.Gait and pivot turn:3. 6.Step over obstacle:2. 7.Gait with narrow base of support: 1. 8.Gait with eyes closed: 2. 9.Ambulating Backwards: 2. 10.Steps: 3. Total Score: 22 /maximum score 30. She exhibits good static balance. Performance for dynamic balance is below one and held standard deviation among age related peers. - Non Material Handling Activities Bending: Heart rate prior to beginning with use of pulse oximeter: 86 bpm. 3x, 10x in 57 seconds, and 10x faster in 42 seconds. Michelle completed bending from hips with equal weightbearing to bilateral lower extremity. She completed ability to complete full bend. Some guarded movements observed with paced and slower movements to complete full bend but no increase in heart. Heart rate posttest with use of pulse oximeter: 83 bpm. Perceived pain:8/10. She is not reliable with pain rating based on pain scale provided. Squatting: Heart rate prior to beginning with use of pulse oximeter: 86 bpm. 3x, 10x in 49 seconds, and 10x faster in 31 seconds. Completed with narrow base of support. Obsessive to have equal weightbearing into bilateral lower extremity. Increased mechanical compensations of increased trunk flexion to promote balance. Completed with ability to complete 50 % of full squat. Increased pain behaviors observed of increased pacing of task with increased five to ten second breaks throughout task. No increased in heart rate. Heart rate posttest with use of pulse oximeter: 84 bpm. Perceived pain:8/10 Kneeling: Heart rate prior to beginning with use of pulse oximeter: 67 bpm. 3x. Completed with right lower extremity in front. Completes with increased lateral leaning and mechanical compensations to right lower extremity to maintain balance. She exhibits unequal weightbearing with task and relies heavily on right side. She exhibits ability to complete 50% of full kneel. Increase in heart rate observed. Heart rate posttest with use of pulse oximeter: 95 bpm. Perceived pain: 9/10- unreliable based on pain rating scale used as she is still completing movements but with mild compensations. Reaching out/up: Reaching out from standing: Heart rate prior to beginning with use of pulse oximeter: 65 bpm. 3x, 10x in 33 seconds, and 10x faster in 32 seconds. Completed with ability to complete full reach. Shows pain behaviors of closing eyes and one wince. Heart rate posttest with use of pulse oximeter: 98 bpm. Perceived pain: 9/10- unreliable pain rating. Reaching up from standing: Heart rate prior to beginning with use of pulse oximeter: 78 bpm. 3x, 10x in 25 seconds, and 10x faster in 23 seconds. Completed reaching up with ability to complete full overhead reach. Slight cervical flexion observed as Michelle closed eyes for task. Shows pain behaviors of closing eyes and one wince but pain is no reflective in heart rate. Heart rate posttest with use of pulse oximeter: 80 bpm. Perceived pain:9/10- unreliable pain rating. Walking: Completed walking around facility for 15 minutes during tasks without issue. Due to time constraints did not complete walking tasks solely as she was consistently walking or moving around gym for 40 minutes and walked for 15 minutes of that time. Standing: Michelle is able to complete standing with static and dynamic tasks for 40 minutes consistently. Some mechanical compensations of leaning to right or left sides to promote energy conservation. Sitting: Michelle is able to complete 30 minutes of sitting tasks without need for completed frequent weight shifts. Climbing Stairs: Heart rate prior to beginning with use of pulse oximeter: 74 bpm. Able to complete one set of stairs with no handrails and mild antalgic gait to left lower extremity. Heart rate posttest with use of pulse oximeter: 101 bpm. Perceived pain:7/10 - Dynamic Occasional Lifting Capacity Floor Lift: Heart rate prior to beginning with use of pulse oximeter: 85. Occasional Liftinx 35 lbs. Frequent liftinx 20 lbs. Poor body mechanics observed with increased thoracic spine flexion to completed task and lifting from hips rather than through legs. Decreased ergonomics observed. Completed with poor mechanics but not changes from start to finish of task. No increase in heart outside of safe range. Heart rate posttest with use of pulse oximeter: 91 bpm. Perceived pain: 9/10- unreliable Knee Lift: Heart rate prior to beginning with use of pulse oximeter: 82 bpm. Occasional Liftinx 30 lbs. Frequent liftinx 20 lbs. Completed with poor body mechanics of increased thoracic flexion causing decreased spinal alignment. Noted increased pain. Some pain behaviors of holding breath observed. Exhibits ability to complete light work based on this lifting test. Heart rate posttest with use of pulse oximeter: 92 bpm. Perceived pain: 8/10- unreliable. Waist Lift: Heart rate prior to beginning with use of pulse oximeter: 85 bpm. Occasional Liftinx 30 lbs. Frequent liftinx 15 lbs. Completed with fair body mechanics. Some decreased spinal alignment observed. Lift performance does not match dynamometer testing of upper and lower extremities. Discrepancies noted. Completed with mild mechanical changes but equal weightbearing into bilateral up and lower extremities observed. Heart rate posttest with use of pulse oximeter: 90 bpm. Perceived pain: 9/10 Shoulder Lift: Heart rate prior to beginning with use of pulse oximeter: 72 bpm. Occasional Liftinx 25 lbs. Frequent liftinx 15 lbs. Poor body mechanics with increased cervical flexion and increased holding of breath observed. Decreased mechanical changes with lower weight. 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 Heart rate posttest with use of pulse oximeter: 70 bpm. Perceived pain:9/10- unreliable Overhead Lift: Heart rate prior to beginning with use of pulse oximeter: 85 bpm. Occasional Liftinx 20 lbs. Frequent liftinx 15 lbs. Completed with increased mechanical compensations. She exhibits poor body mechanics with tasks. Some pain like behaviors observed with increased winces. Performance classifies her within light material handling category. No increase in heart rate. Heart rate posttest with use of pulse oximeter: 86. Perceived pain: 9/10 Carrying: Did not complete due to time constraints and often noted needed for social security functional capacity assessment. She was to check if needed. If needed will complete with follow up appointment. Comments: She exhibits some discrepancies with performance. She noted chronic back pain but denied recent imaging. Pain related reporting were unreliable. Ending Diagnostics: - blood pressure: 138/73. - heart rate: 67. - oxygen at room temperature with oximeter: 97%
--- NOTE | 2019-03-13 09:06 | HP.OTFCE_ITS ---
HP OT Functional Capacity Eval Date of Evaluation: 03/09/19 - Task Lift Floor (Occasional 1-33% of Day): 35 lbs Floor (Frequent 34-66% of Day): 20 lbs Floor (Constant 67-100% of Day): 8 lbs Floor PDL: Light-Medium Knee (Occasional 1-33% of Day): 30 lbs Knee (Frequent 34-66% of Day): 20 lbs Knee (Constant 67-100% of Day): 8 lbs Knee PDL: Light Waist (Occasional 1-33% of Day): 30 lbs Waist (Frequent 34-66% of Day): 15 lbs Waist (Constant 67-100% of Day): negligible Waist PDL: Light Shoulder (Occasional 1-33% of Day): 25 lbs Shoulder (Frequent 34-66% of Day): 15 lbs Shoulder (Constant 67-100% of Day): negligible Shoulder PDL: Light Overhead (Occasional 1-33% of Day): 20 lbs Overhead (Frequent 34-66% of Day): 15 lbs Overhead (Constant 67-100% of Day): negligible Overhead PDL: Light - Work Activity/Posture Bending: Frequent Ability (34-66% of day) Squatting: Occasional Ability (1-33% of day) Kneeling: Occasional Ability (1-33% of day) Comments: 1-10%; should avoid due to safety. Reaching out: Frequent Ability (34-66% of day) Reaching up: Frequent Ability (34-66% of day) Sitting: Frequent Ability (34-66% of day) Walking: Frequent Ability (34-66% of day) Standing: Frequent Ability (34-66% of day) - Reference Duration Sedentary Sedentary Light Light Light Medium Medium Medium Heavy Very Heavy Heavy Occasional (0-33% of day) Frequent (34-66% of day) Constant (67-100% of day) 10 # Negligible Negligible 15 # 8 # Negligible 20 # 10# Negli. 35 # 18 # 7 # 50 # 25 # 10 # 75 # 100 # >100 # 38 # 50 # >50 # 15 # 20 # >20 # - Patient Information Height: 1.75 m Weight:: 107.501 kg Hand Dominance: Right BP (Medication Use/Usual Values per pt report): Yes - Medical History Medical History Including Restrictions: Per patient report she has a lifting restriction by her manager french Dr. Huynh (spelling uncertain by patient) as she has defibrillator that was replaced over two years ago. No hard or electronic copy of these restrictions provided by referring physician to therapist to indicate if these restrictions are still in effect. Generally, restrictions are lifted after three months. 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 Completed material handling based on body mechanics and mechanical changes during task. Heart rate was monitored consistently throughout to ensure client safety. - Diagnoses Diagnoses: Past Medical History: Diabetes mellitus type two, cardiac defibrillator, arthritis at multiple joints (knees and shoulder), chronic low back pain, bilateral plantar fasciitis, and adventitial bursitis. Current: Michelle noted she was currently referred for functional capacity evaluation due to sports attorney referral due to chronic pain. 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 Medications: - Zoloft 100 mg 1x daily. - Insulin. - Flonase. - Allergy pills - Symptoms Symptoms: Michelle noted that her pain symptoms fluctuate daily and are intermittently. She noted pain is an achy feeling over joints typically shoulder and knees. She does not take prescription pain medications currently. She noted that she will take 1x extra strength Tylenol when symptoms maximize. - Pain Pain: She is not currently on pain medication program. She does receive counseling services one time weekly for depression and anxiety. She noted she has seen physical therapy for bilateral foot pain due to bursitis but is currently not receiving services or on pain management program. No imaging have been completed on lumbar spine to determine cause of increased pain symptoms within last six months to a year. Degenrative changes noted at x-ray in October 2017 at thoracic spine. Jimbo Pain Questionnaire is a self-report pain assessment to determine a patient?s accurate psychodynamics for accurate pain rating. A score of 30 or high indicates poor psychodynamics and the greater probability of decreased accuracy with accurate pain reporting. Pre- Jimbo: 19. Post Jimbo: 14. Fear Avoidance Questionnaire (FAQ) is a client self- report assessment for 18-64+ that has shown to be reliable and valid for determining increased fear with movements. A score of 96 or higher indicates increased fear avoidance behaviors. FAQ Pre-testing total: 72. -Fear avoidance belief about work (items 6,7,9,10,11,12,15): 39. -Fear avoidance belief about physical activity (items 2,3,4,5):13. FAQ Post testing total: 82. -Fear avoidance belief about work (items 6,7,9,10,11,12,15): 33. 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 She noted that she worked 24/7 for the couple and was contracted in but did not have caregiving license but was completing the tasks the needed. She noted that she lost that job when patrons both . The last she has worked was 2017. She noted she chose not to go back to work as the situation was ?hard for her? and noted ?I still have depression because of it. - Behavioral Behavioral: Michelle completed all tasks asked of her. She exhibits some pain related behaviors but not all were matching with physiological response. She exhibits decrease reliability of pain rating based on observation of her physical performance. She noted she is depressed and has had a hard time dealing with loss of last two clients. - ADLS ADLS: Michelle lives with brother, his girlfriend, and girlfriend?s mother in [place], [place]. She was previous resident of [place], [place] for last 21 years. She resides in apartment with family members and noted she does have her own room. She noted there is one step to get into apartment with no handrail. Once in apartment she has first floor set up. She noted she is still able to complete self-care tasks, cooking, cleaning, and does have license but is not driving due to not owning a vehicle of her own at this time. She noted she takes nightly walks around her neighborhood block. She reports needing to take about an hour to get around a block. She noted she spends most of her time coloring. She explained that brother, girlfriends mother have four bird in apartment that?s he helps care for but does not consistently have to care. - Physical Examination Physical Examination: The purpose of this functional capacity evaluation (FCE) was to determine Michelle?s physical ability. 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 Aerobic limiting factor: 85% of max adjust HR= (220-age) *.85= 143 bpm. Calculated max weight: 60% of weight= 142 lbs. Diagnostics: - blood pressure: 117/70 mmHg. - heart rate: 60 bpm. - oxygen at room temperature: 97%. - perceived pain with use of pain scale: 7/10- unreliable ROM: Shoulder: - flexion: R 0-133, L 0-135. - abduction: R 0-139, L 0-132. - internal rotation: R 0-70- limited by soft tissue, L 0-57- limited by soft tissue. - external rotation: R 0-84, L 0-88. Knee. - R 0-106, L 0-98- no hyperextension noted on either knee. Strength: Strength measurements completed with use of manual muscle testing and short arm access of dynamometer. Results are as follows: Upper Body: Shoulder flexion: -Dynamometer: R 20.1 , L 17.2 lbs. Shoulder extension: -Dyn amometer: R 15.8 , L 16.7 lbs. Shoulder abduction: -Dynamometer: R 15.6 , L 14.9 lbs. Shoulder Internal Rotation: -Dynamometer: R 17.5 , L 16.4 lbs. Shoulder External Rotation: -Dynamometer: R 19.1 , L 14.9 lbs. Elbow flexion: -Dynamometer: R 27.6 , L 25.0 lbs. Elbow extension: -Dynamometer: R 19.9 , L 29.2 lbs. Lower Body: -Dynamometer: R , L. Hip flexion: -Dynamometer: R 26.6 , L 19.1 lbs. Hip adduction: -Dynamometer: R 20.8 , L 18.3 lbs. Hip abduction: -Dynamometer: R 16.9 , L 21.4 lbs. Knee Flexion: -Dynamometer: R 29.7 , L 34.4 lbs. Knee extension: -Dynamometer: R 20.8 , L 17.3 lbs. Plantarflexion: -Dynamometer: R 43.6 , L 20.3 lbs. Dorsiflexion: -Dynamometer: R 21.6 , L 39.4 lbs. Decreased ability to complete lift off test due to limited mobility. Generally rotator cuff intact. Right Urologist Physician Strength Average: 63.33 Right Urologist Physician Strength Percentile: 74th Left Urologist Physician Strength Average: 52.33 Left Urologist Physician Strength Percentile: 65 th Right Lateral Pinch Average: 20.33 Right Lateral Pinch Percentile: 90th+ Left Lateral Pinch Average: 16.66 Left Lateral Pinch Percentile: 90th+ Right Tripod Pinch Average: 17.00 Right Tripod Pinch Percentile: 90th+ Left Tripod Pinch Average: 14.00 Left Tripod Pinch Percentile: 90th+ Comments: Five Span Urologist Physician testing on Dynamometer: Position 1: R 39 , L 38. Position 2: R 67 , L 57. Position 3: R 68 , L 62. Position 4: R 51 , L 54. Position 5: R 49 , L 59. A coefficient of variation greater than 15 % indicated decreased consistency of effort. Coefficient of variation: R 23%, L 17%. Consistency of Effort: inconsistent Sensation: Sensation testing completed on bilateral feet with monofilament touch test. A score of normal on touch test is 2.83 and within normal range with just some discrepancies for light touch is between 3.22-3.61. The higher the number in more complications related to patient?s ability to perceive touch related sensory stimuli. R hand: Thumb 3.22 ,2nd 3.61 , 3rd 2.83 , 4th 2.83 , 5th 3.61. L hand: Thumb 3.61 ,2nd 3.61 , 3rd 3.22 , 4th 3.61 , 5th 3.16. 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 She shows some positive signs for mild carpal tunnel symptoms. Fine Motor: Completed the Purdue Pegboard test to further determine the patient?s ability to complete 2-3 step tasks, assess fine motor control and general dexterity needed to complete assembly like work. The results are as follows: Right Hand: 12. -Percentile: 3rd. Left Hand: 10. -Percentile: below 1st. Both Hands: 8. -Percentile: below 1st. R+ L+ Both: 30. -percentile: below 1st. Assembly: 4. -percentile:below 1st Balance: Functional reach test is used to determine static balance in patients. A score of 15 is normal and less than 10 increases risk of falling. A score of 6 or less significantly increases a patient?s risk of falling. [place] 1: 14. [place] 2: 13. [place] 3: 16.5. Average: 14.5. Functional Gait Assessment (FGA) is a dynamic balance test to determine vestibular functioning and general dynamic balance ability of patient 18-65+. This assessment can be used with clients of various backgrounds to determine functional dynamic balance needed to complete every day work related tasks. 1.Gait Level Surface:3. 2.Change in Gait Speed: 2. 3.Gait with horizontal head turns:1. 4.Gait with vertical head turns:3. 5.Gait and pivot turn:3. 6.Step over obstacle:2. 7.Gait with narrow base of support: 1. 8.Gait with eyes closed: 2. 9.Ambulating Backwards: 2. 10.Steps: 3. Total Score: 22 /maximum score 30. She exhibits good static balance. Performance for dynamic balance is below one and held standard deviation among age related peers. - Non Material Handling Activities Bending: Heart rate prior to beginning with use of pulse oximeter: 86 bpm. 3x, 10x in 57 seconds, and 10x faster in 42 seconds. Michelle completed bending from hips with equal weightbearing to bilateral lower extremity. She completed ability to complete full bend. Some guarded movements observed with paced and slower movements to complete full bend but no increase in heart. Heart rate posttest with use of pulse oximeter: 83 bpm. Perceived pain:8/10. She is not reliable with pain rating based on pain scale provided. Squatting: Heart rate prior to beginning with use of pulse oximeter: 86 bpm. 3x, 10x in 49 seconds, and 10x faster in 31 seconds. Completed with narrow base of support. Obsessive to have equal weightbearing into bilateral lower extremity. Increased mechanical compensations of increased trunk flexion to promote balance. Completed with ability to complete 50 % of full squat. Increased pain behaviors observed of increased pacing of task with increased five to ten second breaks throughout task. No increased in heart rate. Heart rate posttest with use of pulse oximeter: 84 bpm. Perceived pain:8/10 Kneeling: Heart rate prior to beginning with use of pulse oximeter: 67 bpm. 3x. Completed with right lower extremity in front. Completes with increased lateral leaning and mechanical compensations to right lower extremity to maintain balance. She exhibits unequal weightbearing with task and relies heavily on right side. She exhibits ability to complete 50% of full kneel. Increase in heart rate observed. Heart rate posttest with use of pulse oximeter: 95 bpm. Perceived pain: 9/10- unreliable based on pain rating scale used as she is still completing movements but with mild compensations. Reaching out/up: Reaching out from standing: Heart rate prior to beginning with use of pulse oximeter: 65 bpm. 3x, 10x in 33 seconds, and 10x faster in 32 seconds. Completed with ability to complete full reach. Shows pain behaviors of closing eyes and one wince. Heart rate posttest with use of pulse oximeter: 98 bpm. Perceived pain: 9/10- unreliable pain rating. Reaching up from standing: Heart rate prior to beginning with use of pulse oximeter: 78 bpm. 3x, 10x in 25 seconds, and 10x faster in 23 seconds. Completed reaching up with ability to complete full overhead reach. Slight cervical flexion observed as Michelle closed eyes for task. Shows pain behaviors of closing eyes and one wince but pain is no reflective in heart rate. Heart rate posttest with use of pulse oximeter: 80 bpm. Perceived pain:9/10- unreliable pain rating. Walking: Completed walking around facility for 15 minutes during tasks without issue. Due to time constraints did not complete walking tasks solely as she was consistently walking or moving around gym for 40 minutes and walked for 15 minutes of that time. Standing: Michelle is able to complete standing with static and dynamic tasks for 40 minutes consistently. Some mechanical compensations of leaning to right or left sides to promote energy conservation. Sitting: Michelle is able to complete 30 minutes of sitting tasks without need for completed frequent weight shifts. Climbing Stairs: Heart rate prior to beginning with use of pulse oximeter: 74 bpm. Able to complete one set of stairs with no handrails and mild antalgic gait to left lower extremity. Heart rate posttest with use of pulse oximeter: 101 bpm. Perceived pain:7/10 - Dynamic Occasional Lifting Capacity Floor Lift: Heart rate prior to beginning with use of pulse oximeter: 85. Occasional Liftinx 35 lbs. Frequent liftinx 20 lbs. Poor body mechanics observed with increased thoracic spine flexion to completed task and lifting from hips rather than through legs. Decreased ergonomics observed. Completed with poor mechanics but not changes from start to finish of task. No increase in heart outside of safe range. Heart rate posttest with use of pulse oximeter: 91 bpm. Perceived pain: 9/10- unreliable Knee Lift: Heart rate prior to beginning with use of pulse oximeter: 82 bpm. Occasional Liftinx 30 lbs. Frequent liftinx 20 lbs. Completed with poor body mechanics of increased thoracic flexion causing decreased spinal alignment. Noted increased pain. Some pain behaviors of holding breath observed. Exhibits ability to complete light work based on this lifting test. Heart rate posttest with use of pulse oximeter: 92 bpm. Perceived pain: 8/10- unreliable. Waist Lift: Heart rate prior to beginning with use of pulse oximeter: 85 bpm. Occasional Liftinx 30 lbs. Frequent liftinx 15 lbs. Completed with fair body mechanics. Some decreased spinal alignment observed. Lift performance does not match dynamometer testing of upper and lower extremities. Discrepancies noted. Completed with mild mechanical changes but equal weightbearing into bilateral up and lower extremities observed. Heart rate posttest with use of pulse oximeter: 90 bpm. Perceived pain: 9/10 Shoulder Lift: Heart rate prior to beginning with use of pulse oximeter: 72 bpm. Occasional Liftinx 25 lbs. Frequent liftinx 15 lbs. Poor body mechanics with increased cervical flexion and increased holding of breath observed. Decreased mechanical changes with lower weight. 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 Heart rate posttest with use of pulse oximeter: 70 bpm. Perceived pain:9/10- unreliable Overhead Lift: Heart rate prior to beginning with use of pulse oximeter: 85 bpm. Occasional Liftinx 20 lbs. Frequent liftinx 15 lbs. Completed with increased mechanical compensations. She exhibits poor body mechanics with tasks. Some pain like behaviors observed with increased winces. Performance classifies her within light material handling category. No increase in heart rate. Heart rate posttest with use of pulse oximeter: 86. Perceived pain: 9/10 Carrying: Did not complete due to time constraints and often noted needed for social security functional capacity assessment. She was to check if needed. If needed will complete with follow up appointment. Comments: She exhibits some discrepancies with performance. She noted chronic back pain but denied recent imaging to lumbar spine. Degenrative changes noted at x-ray in October 2017 at thoracic spine. Pain related reporting was unreliable during assessment. Ending Diagnostics: - blood pressure: 138/73. - heart rate: 67. - oxygen at room temperature with oximeter: 97%
== END 2019-03-09 19:00 | disposition home or self-care (01) ==
LOC: OT 10:27
PROVIDERS: Family Provider Family Medicine; PCP Family Medicine; Referring Provider Physician Assistant; Visit Provider Physician Assistant
DX: M54.9 Dorsalgia, unspecified (principal); G89.29 Other chronic pain; M72.2 Plantar fascial fibromatosis; M71.50 Other bursitis, not elsewhere classified, unspecified site
CPT/HCPCS: 97750

== ENCOUNTER 2021-04-21 14:16 | Emergency (ER) | payer MEDICAID, SELFPAY ==
[2021-04-21 14:16] VITALS: BP 112/74; PULSE 75; RESP 18; TEMP 36.4; O2SAT 98; BMI 36.4
--- NOTE | 2021-04-21 14:24 | EKG12_ITS ---
Test Reason : PALPITATIONS Blood Pressure : / mmHG Vent. Rate : 069 BPM Atrial Rate : 069 BPM P-R Int : 000 ms QRS Dur : 162 ms QT Int : 468 ms P-R-T Axes : 052 092 080 degrees QTc Int : 501 ms Ventricular-paced rhythm Biventricular pacemaker detected Abnormal ECG Confirmed by IAM PEREZ, SIVAKUMAR ([id number]), greeting card editor LILLI MITCHELL ([id number]) on 04/24/2021 12:38:31 PM Referred By: [facility] Confirmed By:EDWARDO VITALE MD
--- NOTE | 2021-04-21 14:24 | RAD_ITS ---
STUDY: X-RAY CHEST REASON FOR EXAM: Female, 55 years old. Chest pain TECHNIQUE: Single frontal view of the chest. COMPARISON: 01/02/2019 FINDINGS: The lungs are clear and expanded. There is no demonstrated pleural abnormality. Normal size heart. There is a grossly stable cardiac pacer device in place. Normal mediastinum and remy. Normal visualized pulmonary arteries. Normal visualized aortic arch and descending thoracic aorta. Normal visualized thoracic spine. Normal visualized ribs, clavicles, and shoulders. There is no demonstrated abnormality of the visualized soft tissue structures of the upper abdomen. RAD/Chest 1 View (Portable) IMPRESSION: No acute cardiopulmonary processes. Electronically Signed: Chely Roland MD at 14:53 EDT Tel , Service support ,
--- NOTE | 2021-04-21 14:29 | ED.VIS.CHEST ---
HPI History of Present Illness Chief Complaint: Palpitations Informant: patient Onset/Context/Timing Onset: Days Timing: Intermittent Current Severity: Mild Maximum Severity: Mild Worsened By: Nothing Relieved By: Nothing Narrative Narrative: 35-year-old female history of diabetes, hypertension, high cholesterol and a defibrillator. Denies any history of coronary disease, no prior CABG and no other heart surgery. States she just has felt jittery the last 2 days. She denies chest pain. She denies fever or chills. No history of DVT or PE. No significant risk factors. No hemoptysis. Prior Similar Symptoms: Yes Recent Illness/Hospitalization: No CVD Risk Factors: Positive for Hypertension, Diabetes and Hypercholesterolemia PE Risk Factors: Negative for Recent Travel/Surgery, Recent Immobilization, Prior DVT or PE, Cancer and OCP + Smoking + >/=35 TAD Risk Factors: Positive for Hypertension; Negative for Marfan's Syndrome [facility] Medical History Arthritis Diabetes type 2, controlled Gout Headache Heart disease HTN (hypertension) Hyperlipidemia Nonischemic dilated cardiomyopathy Pulmonary HTN RLS (restless legs syndrome) Seasonal allergies Home Medications aspirin 81 mg PO DAILY 04/18/13 [History Last Taken 11/07/17 07:00] magnesium oxide 400 mg PO BID #30 tab 06/01/13 [Rx Last Taken 11/07/17 07:00] atorvastatin 10 mg tablet 10 mg PO DAILY 08/12/17 [History Last Taken 11/07/17 07:00] carvedilol 12.5 mg tablet 25 mg PO BID tab 08/12/17 [History Last Taken 11/07/17 07:00] oxybutynin chloride 5 mg tablet 15 mg PO DAILY 08/12/17 [History Last Taken 11/07/17 07:00] pantoprazole 40 mg tablet,delayed release 40 mg PO BID tab 08/12/17 [History Last Taken 11/07/17 07:00] pramipexole 0.25 mg tablet 0.75 mg PO QHS tab 08/12/17 [History Last Taken 11/06/17 21:00] spironolactone 25 mg tablet 25 mg PO DAILY 08/12/17 [History Last Taken 11/07/17 07:00] sertraline 50 mg PO DAILY 03/04/18 [History Last Taken Unknown] OneTouch Delica Lancets 30 gauge #300 ea NS 03/24/18 [Rx Last Taken Unknown] OneTouch Ultra Blue Test Strip #300 ea NS 03/24/18 [Rx Last Taken Unknown] insulin lispro 100 unit/mL subcutaneous solution See Rx Instructions SC TID #3 ml 05/06/18 [Rx Last Taken Unknown] cetirizine 10 mg PO DAILY 05/16/18 [History Last Taken Unknown] insulin glargine 50 unit SUBCUT 1700 05/16/18 [History Last Taken Unknown] empagliflozin 10 mg tablet 10 mg PO DAILY 07/30/18 [History Last Taken Unknown] fexofenadine 180 mg tablet 180 mg PO DAILY 07/30/18 [History Last Taken Unknown] FreeStyle Lance 14 Day [place] #1 ea NS 08/04/18 [Rx Last Taken Unknown] FreeStyle Lance 14 Day Sensor #1 ea NS 08/04/18 [Rx Last Taken Unknown] flash glucose scanning reader 08/04/18 [History Last Taken Unknown] flash glucose sensor 08/04/18 [History Last Taken Unknown] CareFine Pen Needle 30 gauge x 5/16 #120 ea NS 08/18/18 [Rx Last Taken Unknown] insulin syringe-needle U-100 0.5 mL 31 gauge x 5/16 #90 ea 08/19/18 [Rx Last Taken Unknown] furosemide 40 mg PO BID 04/21/21 [History Last Taken Unknown] insulin glargine [Lantus Solostar U-100 Insulin] 60 unit SUBCUT BREAKFAST 04/21/21 [History Last Taken Unknown] Allergy/AdvReac Type Severity Reaction Status Date / Time simvastatin Allergy Severe Unknown Verified 04/21/21 14:19 Latex, Natural Rubber Allergy Unknown Rash Verified 04/21/21 14:19 metformin Allergy Other Verified 04/21/21 14:19 Family History Father Heart disease Myocardial infarction CAD (coronary artery disease) Mother CAD (coronary artery disease) Heart disease Surgical History H/O colectomy History of hysteroscopy History of left heart catheterization Hx of appendectomy Social History Smoking Status: Never smoker second hand exposure: No alcohol intake: current alcohol intake frequency: a few times a month substance use type: does not use ROS ROS ED ROS Narrative Denies nausea, vomiting, diarrhea or fever. Review of Systems ROS Unobtainable: Denies due to encephalopathy Constitutional Constitutional ED: Denies fever(s) or subjective Eyes Eyes: Denies none ENT ENT ED: Denies ear pain or sore throat Cardiovascular Cardiovascular: Reports palpitations; Denies as per HPI or chest pain Respiratory/Chest Respiratory/Chest: Denies cough or dyspnea Gastrointestinal Gastrointestinal: Denies abdominal pain, diarrhea, nausea or vomiting Genitourinary Genitourinary ED: Denies dysuria or hematuria Musculoskeletal Musculoskeletal: Denies myalgias Integumentary Denies rash Neurologic Neurologic: Denies headache(s) Psychiatric Psychiatric: Denies depression Endocrine Endocrinology: Denies polyuria Hematologic/Lymphatic Hematologic/Lymphatic: Denies easy bruising Allergic/Immunologic Allergic/Immunologic ED: Denies urticaria EXAM Physical Exam Narrative Exam Narrative: Middle-age female no acute distress vital signs stable afebrile. HEENT exam normal. Neck nontender. No JVD. Lungs clear to auscultation. Heart regular rate and rhythm no murmur. Abdomen soft nontender. Moving all 4 extremities. Calves nontender. No edema or cords. Neurologically awake alert no focal motor deficits. Exam benign. Const Vital Signs: 04/21/21 14:16 04/21/21 14:54 04/21/21 14:55 Temperature 97.6 F L Temperature Source Temporal Pulse Rate 75 71 Respiratory Rate 18 14 Respiratory Effort Blood Pressure 112/74 100/58 L Blood Pressure Mean 86 72 Pulse Ox 98 95 Oxygen Delivery Method Room Air Room Air Room Air 04/21/21 14:59 Temperature Temperature Source Pulse Rate Respiratory Rate Respiratory Effort Normal Non-Labored Blood Pressure Blood Pressure Mean Pulse Ox Oxygen Delivery Method General Appearance ED: Negative for pallor HEENT Reports moist mucous membranes normocephalic and atraumatic Eyes PERRL and EOMs intact bilaterally Neck no lymphadenopathy, supple and no JVD General: Negative for tenderness Chest Wall inspection of chest normal and palpation of chest normal Resp normal respiratory effort and clear to auscultation bilaterally Effort and Inspection: respiratory distress Auscultation: Negative for rales, rhonchi or wheezes Cardio regular rate, regular rhythm, S1 normal heart sound, S2 normal heart sound and no murmurs Rate: Negative for bradycardia or tachycardic GI normal to inspection, nondistended, normoactive bowel sounds, soft to palpation, non-tender, non-distended and no masses; Negative for hepatosplenomegaly Auscultation: Negative for hyperactive bowel sounds Back/Spine no CVA tenderness Extremity normal to inspection General Extremety ED: Negative for edema or tenderness General Extremity: Negative for edema Neuro oriented x3 Sensorium / Orientation: awake, alert, oriented to person, oriented to place and oriented to time Motor Exam: strength 5/5 throughout Psych mental status grossly normal Mood & Affect: Negative for depressed or tearful Skin no rashes or lesions noted and no wounds General Skin Exam: Negative for jaundice or pallor MDM MDM MDM Narrative Medical decision making narrative: 55-year-old female complaining of feeling jittery with palpitations. Her exam is benign. Her heart rate 70. She will undergo cardiac work-up with TSH. Repeat exam patient doing well at 3:11 PM. We went over her test results and she will be discharged home with outpatient follow-up Lab Data Attestation: I reviewed the patient's lab results. Lab results narrative: CBC showsWhite count 7. Hemoglobin 12.5. Chemistries normal. Troponin normal. TSH normal. Labs: Laboratory Results - last 24 hr 04/21/21 04/21/21 14:30 14:30 WBC 7.4 RBC 4.53 Hgb 12.5 Hct 39.1 MCV 86.3 MCH 27.6 MCHC 32.0 RDW Std Deviation 47.9 H RDW Coeff of [place] 15.4 H Plt Count 190 MPV 10.3 Immature Gran % (Auto) 0.400 Neut % (Auto) 65.2 Lymph % (Auto) 25.3 Will % (Auto) 7.4 Eos % (Auto) 1.3 Baso % (Auto) 0.4 Absolute Neuts (auto) 4.8 Absolute Lymphs (auto) 1.88 Nucleated RBC % 0 Sodium 140 Potassium 3.8 Chloride 104 Carbon Dioxide 32.0 Anion Gap 4 L BUN 16 Creatinine 1.03 H Estim Creat Clear Calc 65.25 Est GFR (MDRD) Af Amer 72 Est GFR (MDRD) Non-Af 59 L BUN/Creatinine Ratio 15.5 Glucose 109 H Calcium 9.1 Troponin I High Sens 6 TSH 0.39 Radiography Chest X-Ray - ED: 1 View, Read by ED Physician, Normal, Heart, Lungs, Mediastinum, Bony Structures, No Acute Disease, Chronic Changes and No Infiltrates Diagnostic Testing: Clinical Impression(s) from Imaging Studies Chest X-Ray 04/21/21 14:24 IMPRESSION: No acute cardiopulmonary processes. Electronically Signed: Chely Roland MD at 14:53 EDT Tel , Service support , Chest x-ray 1 view interpreted by myself shows no acute abnormality. Normal cardiac silhouette. Left-sided pacemaker defibrillator. No infiltrates. Rhythm Strip Rhythm Strip: Paced Rate: 69 Ectopy: None EKG Initial EKG: Attestation: I personally reviewed and interpreted this EKG as follows: Interpretation: Paced Comments: Ventricular paced rhythm. Rate of 69. Discharge Plan Triage Chief Complaint: Palpitations ED Provider: Robert Daugherty Dx/Rx/DC Orders Clinical Impression: Heart palpitations Instructions: ED Palpitations Prescriptions: No Action carvedilol 12.5 MG tablet 25 mg PO BID RF: 0 pramipexole [Mirapex] 0.25 mg tablet 0.75 mg PO QHS RF: 0 spironolactone [Aldactone] 25 mg tablet 25 mg PO DAILY RF: 0 atorvastatin [Lipitor] 10 mg tablet 10 mg PO DAILY RF: 0 pantoprazole 40 mg tablet,delayed release (DR/EC) 40 mg PO BID RF: 0 oxybutynin chloride 5 mg tablet 15 mg PO DAILY RF: 0 (DME) blood sugar diagnostic [OneTouch Ultra Blue Test Strip] strip See Dose Instructions .ROUTE .MEDSUPPLY Qty: 300 RF: 3 (DME) lancets [OneTouch Delica Lancets] 30 gauge misc See Dose Instructions .ROUTE .MEDSUPPLY Qty: 300 RF: 3 Admelog U-100 Insulin lispro 100 unit/mL solution See Rx Instructions SC TID Qty: 3 RF: 11 fexofenadine [Jacquelin Allergy] 180 mg tablet 180 mg PO DAILY RF: 0 Jardiance 10 mg tablet 10 mg PO DAILY RF: 0 (DME) FreeStyle Lance 14 Day Sensor kit See Dose Instructions .ROUTE .MEDSUPPLY Qty: 1 RF: 11 (DME) FreeStyle Lance 14 Day [place] misc See Dose Instructions .ROUTE .MEDSUPPLY Qty: 1 RF: 0 aspirin 81 MG tablet 81 mg PO DAILY RF: 0 magnesium oxide 400 MG tablet 400 mg PO BID Qty: 30 RF: 0 sertraline 50 MG tablet 50 mg PO DAILY RF: 0 cetirizine 10 MG capsule 10 mg PO DAILY RF: 0 insulin glargine 100 UNIT/ML insulin pen 50 unit subcut 1700 RF: 0 (DME) flash glucose sensor 1 EACH kit 0 ( .Route .MEDSUPPLY RF: 0 (DME) flash glucose scanning reader 1 EACH misc 0 ( .Route .MEDSUPPLY RF: 0 Lantus Solostar U-100 Insulin 100 unit/mL (3 mL) insulin pen 60 unit SUBCUT BREAKFAST RF: 0 furosemide 40 MG tablet 40 mg PO BID RF: 0 (DME) CareFine Pen Needle 30 gauge x 5/16 needle See Dose Instructions .ROUTE .MEDSUPPLY Qty: 120 RF: 11 (DME) insulin syringe-needle U-100 [BD Insulin Syringe Ultra-Fine] 0.5 mL 31 gauge x 5/16 syringe See Dose Instructions .ROUTE .MEDSUPPLY Qty: 90 RF: 11 Primary Care Provider: Care Physician,No Primary Referrals: Mello Hull MD [NON-STAFF] - 1 Week if not improving Activity Restrictions/Additional Instructions: Follow-up with your doctor as needed. All your lab tests were normal today. Disposition Disposition: Home, Self Care
[2021-04-21 14:37] LABS: Absolute Lymphocyte Count 1.88 X10^3/uL (0.83-4.51); Absolute Neutrophil Count 4.8 X10^3/uL (2.0-7.7); Basophil# 0.03 X10^3/uL; Basophil% 0.4 % (0-1); Eosinophils% 1.3 % (0-5); Hematocrit 39.1 % (37-47); Hemoglobin 12.5 g/dL (12.0-15.0); Lymphocyte # 1.88 X10^3/ul (0.83-4.51); Lymphocyte % 25.3 % (19-41); Mean Corpuscular Hgb 27.6 pg (27.0-32.0); Mean Corpuscular Volume 86.3 fL (81-99); Mean Platelet Vol. 10.3 fl (6.2-12.0); Monocyte# 0.55 X10^3/uL; Monocyte% 7.4 % (0-10); NRBC Flagged by Analyzer 0 % (0-5); Neutrophil # 4.83 X10^3/uL (2.7-7.7); Neutrophil % 65.2 % (47-70); Platelet Count 190 K/mm3 (150-450); RBC Distribution Width CV 15.4 % (11.6-14.6); RBC Distribution Width SD 47.9 fl (35.1-43.9); Red Blood Count 4.53 M/mm3 (4.2-5.4); White Blood Count 7.4 K/mm3 (4.4-11.0)
[2021-04-21 14:55] VITALS: BP 100/58; PULSE 71; RESP 14; O2SAT 95
[2021-04-21 15:06] LABS: Anion Gap 4 (5-15); BUN 16 mg/dL (7-18); BUN/Creat Ratio 15.5 RATIO (10-20); Calcium,Total 9.1 mg/dL (8.5-10.1); Chloride 104 mmol/L (98-107); Creatinine, Serum 1.03 mg/dL (0.55-1.02); EST Glomerular Filtration Rate 59 mL/min (>60); Est Glom Filt Rate - Afr Amer 72 mL/min (>60); Estimated Creatinine Clearance 65.25 ml/min; Glucose 109 mg/dL (74-106); Potassium 3.8 mmol/L (3.5-5.1); Sodium Level 140 mmol/L (136-145); Thyroid Stim Hormone (TSH) 0.39 uIU/mL (0.358-3.74); Troponin-I HS 6 pg/mL (3.0-54.0)
[2021-04-21 15:26] VITALS: BP 114/67; PULSE 71; RESP 18; O2SAT 98
== END 2021-04-21 15:27 | disposition home or self-care (01) ==
LOC: ED 14:41
PROVIDERS: Emergency Provider Emergency Medicine
DX: R00.2 Palpitations (principal); I42.0 Dilated cardiomyopathy; I27.20 Pulmonary hypertension, unspecified; I10 Essential (primary) hypertension; E11.9 Type 2 diabetes mellitus without complications; E78.00 Pure hypercholesterolemia, unspecified; M19.90 Unspecified osteoarthritis, unspecified site; G25.81 Restless legs syndrome; Z95.810 Presence of automatic (implantable) cardiac defibrillator; Z79.82 Long term (current) use of aspirin; Z79.4 Long term (current) use of insulin; Z79.899 Other long term (current) drug therapy; Z82.49 Family history of ischemic heart disease and other diseases of the circulatory system
CPT/HCPCS: 71045; 80048; 84443; 84484; 85025; 93005; 99284; A4216

== ENCOUNTER 2023-10-06 13:21 | Emergency (ER) | payer MEDICAID, SELFPAY ==
[2023-10-06 13:22] VITALS: BP 145/100; PULSE 75; RESP 18; TEMP 36.9; O2SAT 95
--- NOTE | 2023-10-06 13:51 | EDS_ITS ---
HPI History of Present Illness Chief Complaint: Lower Extremity Injury Informant: patient and EMS Narrative Narrative: Patient states she had a minor injury to her right great toe about a week ago, she states she caught the toenail on something as she was walking past it, the toenail was already thickened and enlarged, but this tore the toenail partially off. Today, she tore the toenail off completely as it was just hanging on, and in doing this, she created a wound accidentally that is sore. Then, her dog stepped on it, creating sprain hemorrhage from the wound which is why she called EMS. She is on no antiplatelet or anticoagulant medications. She denies any symptoms of anemia, just sore at the toe. It is currently not bleeding now that EMS wrapped it tightly. [facility] Medical History Arthritis Diabetes type 2, controlled Gout Headache Heart disease HTN (hypertension) Hyperlipidemia Nonischemic dilated cardiomyopathy Pulmonary HTN RLS (restless legs syndrome) Seasonal allergies Home Medications aspirin 81 mg tablet,delayed release 81 mg PO DAILY heart health 04/18/13 [History Last Taken 11/07/17 07:00] magnesium oxide 400 mg (241.3 mg magnesium) tablet 400 mg PO BID #30 tabs 06/01/13 [Rx Last Taken 11/07/17 07:00] atorvastatin 10 mg tablet (Lipitor) 10 mg PO DAILY cholesterol 08/12/17 [History Last Taken 11/07/17 07:00] carvedilol 12.5 mg tablet 25 mg PO BID BP 08/12/17 [History Last Taken 11/07/17 07:00] oxybutynin chloride 5 mg tablet 15 mg PO DAILY bladder 08/12/17 [History Last Taken 11/07/17 07:00] pantoprazole 40 mg tablet,delayed release 40 mg PO BID stomach acid 08/12/17 [History Last Taken 11/07/17 07:00] pramipexole 0.25 mg tablet (Mirapex) 0.75 mg PO QHS restless legs 08/12/17 [History Last Taken 11/06/17 21:00] spironolactone 25 mg tablet (Aldactone) 25 mg PO DAILY diuretic 08/12/17 [History Last Taken 11/07/17 07:00] sertraline 50 mg tablet 50 mg PO DAILY 03/04/18 [History Last Taken Unknown] OneTouch Delica Lancets 30 gauge (lancets) #300 ea 03/24/18 [Rx Last Taken Unknown] OneTouch Ultra Blue Test Strip (blood sugar diagnostic) #300 ea 03/24/18 [Rx Last Taken Unknown] insulin lispro 100 unit/mL subcutaneous solution (Admelog U-100 Insulin lispro) See Rx Instructions subcut TID e11.69 #3 mL 05/06/18 [Rx Last Taken Unknown] cetirizine 10 mg capsule 10 mg PO DAILY 05/16/18 [History Last Taken Unknown] insulin glargine 100 unit/mL (3 mL) subcutaneous pen 50 unit subcut 1700 glucose control 05/16/18 [History Last Taken Unknown] empagliflozin 10 mg tablet (Jardiance) 10 mg PO DAILY 07/30/18 [History Last Taken Unknown] fexofenadine 180 mg tablet (Jacquelin Allergy) 180 mg PO DAILY 07/30/18 [History Last Taken Unknown] FreeStyle Lance 14 Day [place] (flash glucose scanning reader) #1 ea 08/04/18 [Rx Last Taken Unknown] FreeStyle Lance 14 Day Sensor (flash glucose sensor) #1 ea 08/04/18 [Rx Last Taken Unknown] flash glucose scanning reader 08/04/18 [History Last Taken Unknown] flash glucose sensor 08/04/18 [History Last Taken Unknown] CareFine Pen Needle 30 gauge x 5/16 (pen needle, diabetic) #120 ea 08/18/18 [Rx Last Taken Unknown] insulin syringe-needle U-100 0.5 mL 31 gauge x 5/16 (BD Insulin Syringe Ultra- Fine) #90 ea 08/19/18 [Rx Last Taken Unknown] furosemide 40 mg tablet 40 mg PO BID 04/21/21 [History Last Taken Unknown] insulin glargine 100 unit/mL (3 mL) subcutaneous pen (Lantus Solostar U-100 Insulin) 60 unit subcut BREAKFAST 04/21/21 [History Last Taken Unknown] Allergy/AdvReac Type Severity Reaction Status Date / Time simvastatin Allergy Severe Unknown Verified 10/06/23 13:24 Latex, Natural Rubber Allergy Unknown Rash Verified 10/06/23 13:24 metformin Allergy Other Verified 10/06/23 13:24 Family History Father Heart disease Myocardial infarction CAD (coronary artery disease) Mother CAD (coronary artery disease) Heart disease Surgical History H/O colectomy History of hysteroscopy History of left heart catheterization Hx of appendectomy Social History Smoking Status: Never smoker second hand exposure: No alcohol intake: current alcohol intake frequency: a few times a month substance use type: does not use ROS ROS ED Constitutional Constitutional ED: Denies chills or fever(s) Musculoskeletal Musculoskeletal: Reports extremity pain; Denies neck pain Integumentary Reports wounds; Denies Abrasions or rash Neurologic Neurologic: Denies paresthesias or weakness EXAM Physical Exam Const Vital Signs: 10/06/23 13:22 Temperature 98.5 F Temperature Source Oral Pulse Rate 75 Respiratory Rate 18 Blood Pressure 145/100 H Blood Pressure Mean 115 Pulse Ox 95 Oxygen Delivery Method Room Air Positive well nourished, well developed and obese General Appearance ED: well developed and NAD Nutritional Appearance: obese Neck full ROM and supple Back/Spine normal ROM and normal to inspection Extremity Extremity Narrative: In unwrapping the bulky dressing on the patient's right foot, there is a wound which appears consistent with superficial and subcutaneous tissue avulsed at the tibial aspect of the nailbed and toe on the right great toe, this wound is tender, does not appear infected, and is not currently actively bleeding. There is a small piece of what appears to be a thickened nail, may have onychomycosis, that is residual at the peroneal aspect of the same toe. There is no bony tenderness in the toe, however palpating the bone away from the wound creates sudden arteriolar bleeding from said wound. I was able to control this by wrapping it tightly with Kerlix. Neuro oriented x3, no focal motor deficits and no sensory deficits noted Sensorium / Orientation: alert Psych mental status grossly normal and thought process normal Skin Skin Narrative: Wound to the tibial aspect of the dorsal distal right great toe see above. No signs of infection elephantitis no other areas of tenderness. Rashes: no rashes MDM MDM MDM Narrative Medical decision making narrative: After wrapping the wound as above, nursing unwrapped it, bleeding was controlled, placed a piece of Surgifoam on it followed by iodoform, and a wrap. There is no bleeding. The patient got up and put weight on it to go to the bathroom and it started hemorrhaging again. It was again wrapped tightly, which controlled the bleeding. When I reevaluated the wound I unwrapped it, and the Surgifoam is left intact and there is no active bleeding. Therefore I rewrapped it and we observed the patient for a little while. There is no recurrent bleeding. She has a ride waiting and would like to leave. We are sending her home with a care package of supplies and the rest of the Surgifoam with instructions for use, in case her restarts. I am also sending her home with a postop shoe to minimize the chances of rebleeding and she is going to try to avoid putting any pressure on the toe for the rest of the day. She is comfortable with that plan, she is not symptomatic/orthostatic with standing so I do not think we need to check her blood counts. She has a breaker up machine operator in [place] that she already has an appointment with. Discharge Plan Triage Chief Complaint: Lower Extremity Injury ED Provider: Jose R Phillips Dx/Rx/DC Orders Clinical Impression: Open wound of left great toe with damage to nail, Bleeding from wound Instructions: ED Post Op Wound Check, Bleeding Prescriptions: No Action carvedilol 12.5 MG tablet 25 mg PO BID Patient Comments: BP pramipexole [Mirapex] 0.25 mg tablet 0.75 mg PO QHS Patient Comments: restless legs spironolactone [Aldactone] 25 mg tablet 25 mg PO DAILY Patient Comments: diruetic atorvastatin [Lipitor] 10 mg tablet 10 mg PO DAILY Patient Comments: cholesterol pantoprazole 40 mg tablet,delayed release (DR/EC) 40 mg PO BID Patient Comments: stomach acid oxybutynin chloride 5 mg tablet 15 mg PO DAILY Patient Comments: bladder (DME) blood sugar diagnostic [OneTouch Ultra Blue Test Strip] strip See Dose Instructions .ROUTE .MEDSUPPLY Qty: 300 3RF Dose Instruction: As directed Rx Instructions: As directed with device up to 3 times daily (DME) lancets [OneTouch Delica Lancets] 30 gauge misc See Dose Instructions .ROUTE .MEDSUPPLY Qty: 300 3RF Dose Instruction: As directed Rx Instructions: As directedwith device up to 3 times daily Admelog U-100 Insulin lispro 100 unit/mL solution See Rx Instructions SC TID Qty: 3 11RF Dose Instruction: inject 1 unit for every 50 blood glucose points above 200 up to 10 units qd SC TID Rx Instructions: inject 1 unit for every 35 blood glucose points above 200 up to 15 units qd SC TID fexofenadine [Jacquelin Allergy] 180 mg tablet 180 mg PO DAILY Jardiance 10 mg tablet 10 mg PO DAILY (DME) FreeStyle Lance 14 Day Sensor kit See Dose Instructions .ROUTE .MEDSUPPLY Qty: 1 11RF Dose Instruction: As directed Rx Instructions: As directed to monitor glucose levels change x14 days (DME) FreeStyle Lance 14 Day [place] misc See Dose Instructions .ROUTE .MEDSUPPLY Qty: 1 0RF Dose Instruction: As directed Rx Instructions: As directed to monitor glucose levels with sensors aspirin 81 MG tablet 81 mg PO DAILY Patient Comments: ANTIPLETELET magnesium oxide 400 MG tablet 400 mg PO BID Qty: 30 0RF Patient Comments: supplement sertraline 50 MG tablet 50 mg PO DAILY cetirizine 10 MG capsule 10 mg PO DAILY insulin glargine 100 UNIT/ML insulin pen 50 unit subcut 1700 Rx Instructions: Titrating dose up. (DME) flash glucose sensor 1 EACH kit 0 ( .Route .MEDSUPPLY Rx Instructions: apply to back of arm to moniter BG. change q 10 days (DME) flash glucose scanning reader 1 EACH misc 0 ( .Route .MEDSUPPLY Rx Instructions: use to moniter Bg via sensor Lantus Solostar U-100 Insulin 100 unit/mL (3 mL) insulin pen 60 unit SUBCUT BREAKFAST Patient Comments: INJECT 76 UNITS SUBCUTANEOUSLY DAILY. DO NOT USE IF GLUCOSE IS LESS THAN 150 furosemide 40 MG tablet 40 mg PO BID Patient Comments: DIURETIC/HEART/BLOOD PRESSURE (DME) CareFine Pen Needle 30 gauge x 5/16 needle See Dose Instructions .ROUTE .MEDSUPPLY Qty: 120 11RF Dose Instruction: As directed Rx Instructions: use with insulin pen 4 x qd (DME) insulin syringe-needle U-100 [BD Insulin Syringe Ultra-Fine] 0.5 mL 31 gauge x 5/16 syringe See Dose Instructions .ROUTE .MEDSUPPLY Qty: 90 11RF Dose Instruction: As directed Rx Instructions: use to inject insulin tid Primary Care Provider: Care Physician,No Primary Referrals: [facility] Doctor,Out of [Non-Staff] - Keep Sarah appointment (with your breaker up machine operator; return to the ER if any issues before then with your wound) Activity Restrictions/Additional Instructions: For today, leave the dressing in place until tomorrow morning. Then change at least once daily, or more often if the dressing is bloody/dirty. Cleanse gently at least once daily, make sure you are looking at the wound every day to look for signs of infection. Whenever you placed a new dressing, place antibiotic ointment and you may reuse the yellow iodoform gauze against the skin followed by clean gauze and a wrap. Disposition Disposition: Home, Self Care
== END 2023-10-06 16:01 | disposition home or self-care (01) ==
PROVIDERS: Emergency Provider Emergency Medicine; Visit Provider Emergency Medicine
DX: S91.202A Unspecified open wound of left great toe with damage to nail, initial encounter (principal); E11.9 Type 2 diabetes mellitus without complications; X58.XXXA Exposure to other specified factors, initial encounter
CPT/HCPCS: 99283

== ENCOUNTER 2024-01-11 23:53 | Emergency (ER) | payer MEDICAID, SELFPAY ==
[2024-01-11 23:54] VITALS: BP 133/81; PULSE 78; RESP 14; TEMP 36.6; O2SAT 98; BMI 37.8
[2024-01-12] VITALS (7 sets, daily range): BP systolic 83–120; BP diastolic 39–79; PULSE 69–80; RESP 11–21; TEMP 36.4; O2SAT 96–98
--- NOTE | 2024-01-12 00:13 | EKG12_ITS ---
Test Reason : CP Blood Pressure : / mmHG Vent. Rate : 076 BPM Atrial Rate : 075 BPM P-R Int : 000 ms QRS Dur : 152 ms QT Int : 464 ms P-R-T Axes : 000 -25 111 degrees QTc Int : 522 ms Ventricular-paced rhythm Biventricular pacemaker detected Abnormal ECG Normal sinus rhythm electronic vent paced BiV Confirmed by Dominick Hinkle ([id number]), senior editor LILLI MITCHELL ([id number]) on 01/13/2024 11:12:28 AM Referred By: BILL Confirmed By:Dominick Hinkle
--- NOTE | 2024-01-12 00:13 | RAD_ITS ---
INDICATION: L chest pain EXAMINATION/TECHNIQUE: X-RAY - XR Chest 2 Views COMPARISON: 04/21/2021 FINDINGS: LINES/DEVICES: Stable transvenous pacemaker. LUNGS: No consolidation, edema or effusion. No pneumothorax. MEDIASTINUM AND CARDIOVASCULAR STRUCTURES: Cardiac silhouette not enlarged. Central airways and mediastinal contour are unremarkable. BONES AND SOFT TISSUES: Unremarkable. RAD/Chest PA and Lateral IMPRESSION: No radiographic evidence of acute cardiopulmonary disease. Electronically Signed: Devin South MD at 0:39 EDT ,
--- NOTE | 2024-01-12 00:14 | ED.VIS.CHEST ---
HPI History of Present Illness Chief Complaint: Chest Pain Informant: patient Onset/Context/Timing Onset: Hours (4) Activity at onset: sudden, onset, activity on onset and rest (Sitting and watching TV) Timing: Continuous Quality: Positive for Sharp Location: Left Chest (Without radiation) Current Severity: Moderate Maximum Severity: Moderate Worsened By: Movement of Torso Relieved By: Remaining Still Associated Symptoms: Negative for Nausea, Vomiting, Diaphoresis, Dyspnea, Cough, Fever, Lightheadedness or Palpitations Narrative Narrative: 58-year-old female with a nonischemic cardiomyopathy, she has had a pacer/defibrillator for the past 10 years, states she is having left-sided chest discomfort that started at rest and has been persistent for the past 4 hours in the area of her device. Never had this before that she knows of. No history of coronary disease and not a smoker. [facility] Medical History (Updated 01/12/24 @ 01:[address] Jose R Phillips MD) Heart disease Headache Arthritis Seasonal allergies Nonischemic dilated cardiomyopathy Gout Pulmonary HTN Hyperlipidemia RLS (restless legs syndrome) HTN (hypertension) Diabetes type 2, controlled Home Medications ?Medication ?Instructions ?Recorded ?Last Taken ?Type aspirin 81 mg tablet,delayed 81 mg PO DAILY heart health 04/18/13 11/07/17 07:00 History release magnesium oxide 400 mg (241.3 mg 400 mg PO BID #30 tabs 06/01/13 11/07/17 07:00 Rx magnesium) tablet atorvastatin 10 mg tablet (Lipitor) 10 mg PO DAILY cholesterol 08/12/17 11/07/17 07:00 History carvedilol 12.5 mg tablet 25 mg PO BID BP 08/12/17 11/07/17 07:00 History pantoprazole 40 mg tablet,delayed 40 mg PO BID stomach acid 08/12/17 11/07/17 07:00 History release pramipexole 0.25 mg tablet 0.75 mg PO QHS restless legs 08/12/17 11/06/17 21:00 History (Mirapex) spironolactone 25 mg tablet 25 mg PO DAILY diuretic 08/12/17 11/07/17 07:00 History (Aldactone) OneTouch Delica Lancets 30 gauge #300 ea 03/24/18 Unknown Rx (lancets) OneTouch Ultra Blue Test Strip #300 ea 03/24/18 Unknown Rx (blood sugar diagnostic) insulin lispro 100 unit/mL See Rx Instructions subcut TID 05/06/18 Unknown Rx subcutaneous solution (Admelog e11.69 #3 mL U-100 Insulin lispro) cetirizine 10 mg capsule 10 mg PO DAILY 05/16/18 Unknown History empagliflozin 10 mg tablet 10 mg PO DAILY 07/30/18 Unknown History (Jardiance) fexofenadine 180 mg tablet 180 mg PO DAILY 07/30/18 Unknown History (Jacquelin Allergy) FreeStyle Lance 14 Day [place] #1 ea 08/04/18 Unknown Rx (flash glucose scanning reader) FreeStyle Lance 14 Day Sensor #1 ea 08/04/18 Unknown Rx (flash glucose sensor) flash glucose scanning reader 08/04/18 Unknown History flash glucose sensor 08/04/18 Unknown History CareFine Pen Needle 30 gauge x #120 ea 08/18/18 Unknown Rx 5/16 (pen needle, diabetic) insulin syringe-needle U-100 0.5 #90 ea 08/19/18 Unknown Rx mL 31 gauge x 5/16 (BD Insulin Syringe Ultra-Fine) furosemide 40 mg tablet 40 mg PO DAILY 04/21/21 Unknown History insulin glargine 100 unit/mL (3 90 unit subcut BREAKFAST 04/21/21 Unknown History mL) subcutaneous pen (Lantus Solostar U-100 Insulin) duloxetine 60 mg capsule,delayed 60 mg PO BID 01/12/24 Unknown History release ergocalciferol (vitamin D2) 1,250 1,250 mcg PO QWEEK 01/12/24 Unknown History mcg (50,000 unit) capsule (Vitamin D2) glyburide 5 mg tablet 10 mg PO DAILY 01/12/24 Unknown History insulin lispro 100 unit/mL 20 unit subcut TIDCM 01/12/24 Unknown History subcutaneous pen potassium chloride 20 mEq 20 meq PO DAILY 01/12/24 Unknown History tablet,extended release(part/cryst) Allergy/AdvReac Type Severity Reaction Status Date / Time simvastatin Allergy Severe Unknown Verified 01/11/24 23:57 Latex, Natural Rubber Allergy Unknown Rash Verified 01/11/24 23:57 metformin Allergy Other Verified 01/11/24 23:57 Family History Father Heart disease Myocardial infarction CAD (coronary artery disease) Mother CAD (coronary artery disease) Heart disease Surgical History History of left heart catheterization Hx of appendectomy H/O colectomy History of hysteroscopy Social History Smoking Status: Never smoker second hand exposure: No alcohol intake: current alcohol intake frequency: a few times a month substance use type: does not use ROS ROS ED Constitutional Constitutional ED: Denies chills or fever(s) Eyes Eyes: Denies change in vision or diplopia ENT ENT ED: Denies rhinorrhea or sore throat Cardiovascular Cardiovascular: Reports chest pain; Denies palpitations or pedal edema Respiratory/Chest Respiratory/Chest: Denies cough or dyspnea Gastrointestinal Gastrointestinal: Denies abdominal pain, diarrhea, nausea or vomiting Genitourinary Genitourinary ED: Denies dysuria or hematuria Musculoskeletal Musculoskeletal: Denies back pain or neck pain Integumentary Denies abscess or rash Neurologic Neurologic: Denies headache(s), paresthesias or weakness Psychiatric Psychiatric: Denies anxiety or suicidal thoughts EXAM Physical Exam Const Vital Signs: 01/11/24 23:54 01/12/24 00:00 01/12/24 00:01 Temperature 97.8 F Temperature Source Oral Pulse Rate 78 73 Respiratory Rate 14 15 Respiratory Effort Normal Non-Labored Blood Pressure 133/81 H Blood Pressure Mean 98 Pulse Ox 98 Oxygen Delivery Method Room Air 01/12/24 00:15 01/12/24 00:15 01/12/24 00:18 Temperature Temperature Source Pulse Rate 77 Respiratory Rate 11 L Respiratory Effort Blood Pressure 120/79 120/79 Blood Pressure Mean 92 92 Pulse Ox Oxygen Delivery Method Room Air 01/12/24 00:30 01/12/24 00:45 01/12/24 00:53 Temperature Temperature Source Pulse Rate 80 74 77 Respiratory Rate 16 15 21 H Respiratory Effort Blood Pressure 111/59 L 98/54 L 98/54 L Blood Pressure Mean 74 68 68 Pulse Ox 98 97 Oxygen Delivery Method Room Air Room Air 01/12/24 01:00 Temperature Temperature Source Pulse Rate 69 Respiratory Rate 14 Respiratory Effort Blood Pressure 83/39 L Blood Pressure Mean 54 Pulse Ox 97 Oxygen Delivery Method Room Air Positive well nourished, well developed and obese General Appearance ED: well developed and NAD Nutritional Appearance: obese HEENT Reports moist mucous membranes normocephalic and atraumatic Eyes PERRL and EOMs intact bilaterally Neck full ROM, supple and no JVD Chest Wall Chest Narrative: tender left parasternal upper chest, reproducing her pain; no crepitance or step-off or signs of trauma. Well-healed scar over pacer/defibrillator without tenderness there or signs of infection. Chest: tenderness Resp normal respiratory effort and clear to auscultation bilaterally Resp Narrative: No splinting with deep inspiration Cardio regular rate, regular rhythm and no murmurs GI non-tender and non-distended Auscultation: normoactive bowel sounds Palpation: soft Back/Spine no CVA tenderness General Back: other FROM Extremity normal to inspection General Extremety ED: Negative for edema, pulses abnormal or tenderness General Extremity: Negative for edema or pulses abnormal Neuro oriented x3, CN's II-XII intact bilaterally and no sensory deficits noted Sensorium / Orientation: awake and alert Motor Exam: strength 5/5 throughout Psych mental status grossly normal Skin no rashes or lesions noted and no wounds Heart Score History: Slightly/Non-Suspicious ECG: Normal Age: >45 - <65 years Risk Factors: 1 or 2 Risk Factors Score: 2 MDM MDM MDM Narrative Medical decision making narrative: Etiology of patient's chest pain is most likely musculoskeletal given the exam, she is really wincing when I palpate left parasternal chest, and when she moves around she reproduces the same pain I am reproducing with palpation and she has no associated symptoms with her chest discomfort that suggest dysrhythmia, PE, or pneumothorax. I did a two-view chest x-ray, as I anticipated on my interpretation it is unremarkable. There is no sign of a widened mediastinum or pneumothorax or pneumonia. Your EKG shows a sinus rhythm with paced ventricular complexes same as her old EKG, and her troponin is in the single digits well within normal limits after 4 hours I do not think this needs to be repeated. The rest of her labs are unremarkable. She was given a small dose of Toradol in the meantime which did help, her vitals are stable currently systolic 105 and she is doing well with the rest of her vital signs being normal, stable for discharge and close outpatient follow-up. We discussed reasons to return she is comfortable with the plan. History & Record Review Additional record(s) reviewed:: Prior outpatient record (Heart cath 2013: 20% smooth stenosis takeoff first diagonal off LAD, ejection fraction 15%, otherwise angiographically normal coronaries.) Lab Data Attestation: I reviewed the patient's lab results. Labs: Laboratory Results - last 24 hr 01/12/24 00:00 WBC 8.1 RBC 4.63 Hgb 13.8 Hct 42.7 MCV 92.2 MCH 29.8 MCHC 32.3 RDW Std Deviation 46.4 H RDW Coeff of Tatum 13.8 Plt Count 201 MPV 10.8 Immature Gran % (Auto) 2.200 H Neut % (Auto) 68.3 Lymph % (Auto) 21.2 [place] % (Auto) 6.4 Eos % (Auto) 1.0 Baso % (Auto) 0.9 Absolute Neuts (auto) 5.5 Absolute Lymphs (auto) 1.71 Nucleated RBC % 0 Sodium 138 Potassium 4.2 Chloride 104 Carbon Dioxide 30.0 Anion Gap 4 L BUN 16 Creatinine 0.95 Estim Creat Clear Calc 88.87 Est GFR (MDRD) Af Amer 78 Est GFR (MDRD) Non-Af 64 BUN/Creatinine Ratio 16.9 Glucose 172 H Calcium 9.2 Troponin I High Sens 6 Radiography Diagnostic Testing: Clinical Impression(s) from Imaging Studies Chest X-Ray 01/12/24 00:13 IMPRESSION: No radiographic evidence of acute cardiopulmonary disease. Electronically Signed: Devin South MD at 0:39 EDT Reading Location ID and State: [facility] / [place] Tel , Service support , Rhythm Strip Rhythm Strip: Sinus Rhythm Rate: 75 Ectopy: None EKG Initial EKG: Attestation: I personally reviewed and interpreted this EKG as follows: Interpretation: Sinus Rhythm, No Acute Injury Pattern and Paced Prior EKG tracings: available for review Prior: Unchanged Discharge Plan Triage Chief Complaint: Chest Pain ED Provider: Jose R Phillips Dx/Rx/DC Orders Clinical Impression: Left-sided chest wall pain Instructions: ED Chest Pain, Noncardiac Prescriptions: No Action carvedilol 12.5 MG tablet 25 mg PO BID Patient Comments: BP pramipexole [Mirapex] 0.25 mg tablet 0.75 mg PO QHS Patient Comments: restless legs spironolactone [Aldactone] 25 mg tablet 25 mg PO DAILY Patient Comments: diruetic atorvastatin [Lipitor] 10 mg tablet 10 mg PO DAILY Patient Comments: cholesterol pantoprazole 40 mg tablet,delayed release (DR/EC) 40 mg PO BID Patient Comments: stomach acid (DME) blood sugar diagnostic [OneTouch Ultra Blue Test Strip] strip See Dose Instructions .ROUTE .MEDSUPPLY Qty: 300 3RF Dose Instruction: As directed Rx Instructions: As directed with device up to 3 times daily (DME) lancets [OneTouch Delica Lancets] 30 gauge misc See Dose Instructions .ROUTE .MEDSUPPLY Qty: 300 3RF Dose Instruction: As directed Rx Instructions: As directedwith device up to 3 times daily Admelog U-100 Insulin lispro 100 unit/mL solution See Rx Instructions SC TID Qty: 3 11RF Dose Instruction: inject 1 unit for every 50 blood glucose points above 200 up to 10 units qd SC TID Rx Instructions: inject 1 unit for every 35 blood glucose points above 200 up to 15 units qd SC TID fexofenadine [Jacquelin Allergy] 180 mg tablet 180 mg PO DAILY Jardiance 10 mg tablet 10 mg PO DAILY (DME) FreeStyle Lance 14 Day Sensor kit See Dose Instructions .ROUTE .MEDSUPPLY Qty: 1 11RF Dose Instruction: As directed Rx Instructions: As directed to monitor glucose levels change x14 days (DME) FreeStyle Lance 14 Day [place] misc See Dose Instructions .ROUTE .MEDSUPPLY Qty: 1 0RF Dose Instruction: As directed Rx Instructions: As directed to monitor glucose levels with sensors aspirin 81 MG tablet 81 mg PO DAILY Patient Comments: ANTIPLETELET magnesium oxide 400 MG tablet 400 mg PO BID Qty: 30 0RF Patient Comments: supplement cetirizine 10 MG capsule 10 mg PO DAILY (DME) flash glucose sensor 1 EACH kit 0 ( .Route .MEDSUPPLY Rx Instructions: apply to back of arm to moniter BG. change q 10 days (DME) flash glucose scanning reader 1 EACH misc 0 ( .Route .MEDSUPPLY Rx Instructions: use to moniter Bg via sensor insulin glargine [Lantus Solostar U-100 Insulin] 100 unit/mL (3 mL) insulin pen 90 unit SUBCUT BREAKFAST Patient Comments: INJECT 76 UNITS SUBCUTANEOUSLY DAILY. DO NOT USE IF GLUCOSE IS LESS THAN 150 furosemide 40 MG tablet 40 mg PO DAILY Patient Comments: DIURETIC/HEART/BLOOD PRESSURE glyburide 5 mg tablet 10 mg PO DAILY ergocalciferol (vitamin D2) [Vitamin D2] 1,250 mcg (50,000 unit) capsule 1,250 mcg PO QWEEK Rx Instructions: saturday potassium chloride 20 mEq tablet,ER particles/crystals 20 meq PO DAILY duloxetine 60 mg capsule,delayed release(DR/EC) 60 mg PO BID insulin lispro 100 unit/mL insulin pen 20 unit subcut TIDCM (DME) CareFine Pen Needle 30 gauge x 5/16 needle See Dose Instructions .ROUTE .MEDSUPPLY Qty: 120 11RF Dose Instruction: As directed Rx Instructions: use with insulin pen 4 x qd (DME) insulin syringe-needle U-100 [BD Insulin Syringe Ultra-Fine] 0.5 mL 31 gauge x 5/16 syringe See Dose Instructions .ROUTE .MEDSUPPLY Qty: 90 11RF Dose Instruction: As directed Rx Instructions: use to inject insulin tid Primary Care Provider: Care Physician,No Primary Referrals: Doctor,Your [Non-Staff] - 3-5 Days if not improving Print Language: Yakut Disposition Disposition: Home, Self Care
[2024-01-12] MEDS: Ketorolac 15 MG/ML Vial IV (00:17)
[2024-01-12 00:30] LABS: Absolute Lymphocyte Count 1.71 X10^3/uL (0.83-4.51); Absolute Neutrophil Count 5.5 X10^3/uL (2.0-7.7); Basophil# 0.07 X10^3/uL; Basophil% 0.9 % (0-1); Eosinophil# 0.08 X10^3/uL; Hematocrit 42.7 % (37-47); Hemoglobin 13.8 g/dL (12.0-15.0); Lymphocyte # 1.71 X10^3/ul (0.83-4.51); Lymphocyte % 21.2 % (19-41); Mean Corp Hgb Conc 32.3 g/dL (32-36); Mean Corpuscular Hgb 29.8 pg (27.0-32.0); Mean Corpuscular Volume 92.2 fL (81-99); Mean Platelet Vol. 10.8 fl (6.2-12.0); Monocyte# 0.52 X10^3/uL; Monocyte% 6.4 % (0-10); NRBC Flagged by Analyzer 0 % (0-5); Neutrophil # 5.51 X10^3/uL (2.7-7.7); Neutrophil % 68.3 % (47-70); Platelet Count 201 K/mm3 (150-450); RBC Distribution Width CV 13.8 % (11.6-14.6); RBC Distribution Width SD 46.4 fl (35.1-43.9); Red Blood Count 4.63 M/mm3 (4.2-5.4); White Blood Count 8.1 K/mm3 (4.4-11.0)
[2024-01-12 00:50] LABS: Anion Gap 4 (5-15); BUN 16 mg/dL (7-18); BUN/Creat Ratio 16.9 RATIO (10-20); Calcium,Total 9.2 mg/dL (8.5-10.1); Chloride 104 mmol/L (98-107); Creatinine, Serum 0.95 mg/dL (0.55-1.02); EST Glomerular Filtration Rate 64 mL/min (>60); Est Glom Filt Rate - Afr Amer 78 mL/min (>60); Estimated Creatinine Clearance 88.87 ml/min; Glucose 172 mg/dL (74-106); Potassium 4.2 mmol/L (3.5-5.1); Sodium Level 138 mmol/L (136-145); Troponin-I HS 6 pg/mL (3.0-54.0)
== END 2024-01-12 01:29 | disposition home or self-care (01) ==
PROVIDERS: Emergency Provider Emergency Medicine; Visit Provider Emergency Medicine
DX: R07.89 Other chest pain (principal); I42.0 Dilated cardiomyopathy; E11.9 Type 2 diabetes mellitus without complications; Z79.4 Long term (current) use of insulin; E78.5 Hyperlipidemia, unspecified; I10 Essential (primary) hypertension; E66.9 Obesity, unspecified; Z82.49 Family history of ischemic heart disease and other diseases of the circulatory system; Z95.810 Presence of automatic (implantable) cardiac defibrillator
CPT/HCPCS: 71046; 80048; 84484; 85025; 93005; 96374; 99283; A4216

== ENCOUNTER → 2024-05-26 | Outpatient (CLI) | payer MEDICAID, SELFPAY | END | disposition home or self-care (01) | LOC: CVS 09:14 | PROVIDERS: Referring Provider Internal Medicine Cardiovascular Disease; Visit Provider Internal Medicine Cardiovascular Disease | DX: I42.0 Dilated cardiomyopathy (principal) | CPT/HCPCS: 93306; Q9957; A4216; C8929 ==

== ENCOUNTER → 2024-08-26 | Outpatient (CLI) | payer MEDICAID, SELFPAY ==
[2024-08-26 12:45] LABS: Absolute Lymphocyte Count 1.28 X10^3/uL (0.83-4.51); Absolute Neutrophil Count 5.6 X10^3/uL (2.0-7.7); Basophil# 0.05 X10^3/uL; Basophil% 0.7 % (0-1); Eosinophil# 0.07 X10^3/uL; Hematocrit 38.6 % (37-47); Hemoglobin 12.2 g/dL (12.0-15.0); Lymphocyte # 1.28 X10^3/ul (0.83-4.51); Lymphocyte % 17.5 % (19-41); Mean Corp Hgb Conc 31.6 g/dL (32-36); Mean Corpuscular Hgb 28.9 pg (27.0-32.0); Mean Corpuscular Volume 91.5 fL (81-99); Mean Platelet Vol. 10.9 fl (6.2-12.0); Monocyte# 0.33 X10^3/uL; Monocyte% 4.5 % (0-10); NRBC Flagged by Analyzer 0 % (0-5); Neutrophil # 5.56 X10^3/uL (2.7-7.7); Neutrophil % 75.9 % (47-70); Platelet Count 197 K/mm3 (150-450); RBC Distribution Width CV 14.3 % (11.6-14.6); RBC Distribution Width SD 47.9 fl (35.1-43.9); Red Blood Count 4.22 M/mm3 (4.2-5.4); White Blood Count 7.3 K/mm3 (4.4-11.0)
[2024-08-26 13:22] LABS: ALB/GLOB Ratio 0.8 RATIO (0.9-2.4); AST(SGOT) 19 U/L (15-37); Alanine Aminotransfer ALT/SGPT 31 U/L (13-56); Albumin, Serum 3.3 g/dL (3.2-5.0); Alkaline Phosphatase 165 U/L (45-117); Anion Gap 6 (5-15); BUN 16 mg/dL (7-18); BUN/Creat Ratio 18.6 RATIO (10-20); Calcium,Total 9.3 mg/dL (8.5-10.1); Chloride 103 mmol/L (98-107); Cholesterol 155 mg/dL (200); Creatinine, Serum 0.86 mg/dL (0.55-1.02); EST Glomerular Filtration Rate 72 mL/min (>60); Est Glom Filt Rate - Afr Amer 87 mL/min (>60); Globulin 4.1 g/dL (2.2-4.2); Glucose 281 mg/dL (74-106); High Density Lipoprotein 54 mg/dL; Potassium 4.6 mmol/L (3.5-5.1); Protein, Total 7.4 g/dL (6.4-8.2); Sodium Level 137 mmol/L (136-145); Triglycerides 99 mg/dL; Very Low Density Lipoprotein 20 mg/dL (5-40)
[2024-08-26 13:28] LABS: Vitamin D,25 Hydroxy 67.7 ng/mL
[2024-08-26 14:03] LABS: Microalbumin,Random Urine 6.4 mg/L (NO RANGE EST.); Microalbumin:Creatinine Ratio 10.8 mg/g CRE (<30 mg/g CRE)
== END | disposition home or self-care (01) ==
LOC: BIMLAB 08:02
PROVIDERS: PCP Internal Medicine; Referring Provider Internal Medicine; Visit Provider Internal Medicine
DX: E11.40 Type 2 diabetes mellitus with diabetic neuropathy, unspecified (principal); Z79.4 Long term (current) use of insulin; I10 Essential (primary) hypertension; I25.5 Ischemic cardiomyopathy; E55.9 Vitamin D deficiency, unspecified; E78.5 Hyperlipidemia, unspecified
CPT/HCPCS: 36415; 80053; 80061; 82043; 82306; 82533; 82570; 85025

== ENCOUNTER 2024-11-07 19:13 | Emergency (ER) | payer MEDICAID, SELFPAY ==
[2024-11-07 19:15] VITALS: BP 135/75; PULSE 87; RESP 18; TEMP 36.3; O2SAT 95; BMI 38.5
--- NOTE | 2024-11-07 19:24 | EX.ED.DYSGE1 ---
HPI History of Present Illness Chief Complaint: Pacer/ICD Detail of Chief Complaint: Pacemaker/AICD beeping Informant: patient Onset/Context/Timing Onset: Today Context: Sudden Onset Timing: Intermittent Quality: Vaping Location: AICD Current Severity: Not applicable Maximum Severity: Not applicable Worsened by: Patient states this occurrs when the battery is low Relieved by: Not applicable Associated Symptoms Associated Symptoms: None Narrative Narrative: Patient 59-year-old woman. She has history of ischemic cardiomyopathy requiring AICD. She also has history of hyperlipidemia associated with type 2 diabetes, pulmonary hypertension, essential hypertension,, and anxiety. She presently has no complaints. She states last time this occurred it was due to the battery being low. Prior similar symptoms: Yes Recent Illness/Hospitalization: No PFSH PFSH Medical History Cardiomyopathy, ischemic Vitamin D deficiency Neuropathy History of placement of internal cardiac defibrillator (09/03/13) GERD (gastroesophageal reflux disease) Anxiety Obesity Type 2 diabetes mellitus with diabetic neuropathy, unspecified Chest pain Heart disease Headache Arthritis Seasonal allergies Nonischemic dilated cardiomyopathy Gout Pulmonary HTN Hyperlipidemia RLS (restless legs syndrome) HTN (hypertension) Home Medications ?Medication ?Instructions ?Recorded ?Last Taken ?Type docusate sodium 100 mg capsule 100 mg PO BID PRN 05/06/24 Unknown History (Colace) CareFine Pen Needle 30 gauge x #120 ea 05/29/24 Unknown Rx 5/16 (pen needle, diabetic) insulin syringe-needle U-100 0.5 #90 ea 05/29/24 Unknown Rx mL 31 gauge x 5/16 (BD Insulin Syringe Ultra-Fine) sacubitril 24 mg-valsartan 26 mg 1 tab PO BID #60 tabs 06/03/24 Unknown Rx tablet (Entresto) ropinirole 0.5 mg tablet 0.5 mg PO QHS #90 tabs 09/07/24 Unknown Rx pantoprazole 40 mg tablet,delayed 40 mg PO BID #180 tabs 09/09/24 Unknown Rx release (Protonix) blood sugar diagnostic (OneTouch #100 ea 10/15/24 Unknown Rx Verio test strips) 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 meter (OneTouch #1 ea 10/15/24 Unknown Rx Verio Reflect Meter) 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 meter,continuous #1 ea 10/15/24 Unknown Rx (FreeStyle Lance 3 [place]) 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 sensor (FreeStyle #2 ea 10/15/24 Unknown Rx Lance 3 Plus Sensor device) dulaglutide 1.5 mg/0.5 mL 1.5 mg (0.5 mL) subcut QWEEK #2 mL 10/15/24 Unknown Rx subcutaneous pen injector (Trulicity) insulin lispro 100 unit/mL 30 unit subcut TID 10/19/24 Unknown History subcutaneous pen insulin glargine 100 unit/mL (3 40 unit (0.4 mL) subcut BID #30 mL 10/21/24 Unknown Rx mL) subcutaneous pen (Lantus Solostar U-100 Insulin) atorvastatin 10 mg tablet (Lipitor) 10 mg PO DAILY cholesterol #90 tabs 10/22/24 Unknown Rx carvedilol 25 mg tablet 25 mg PO Q12H #180 tabs 10/22/24 Unknown Rx cetirizine 10 mg capsule 10 mg PO DAILY #90 caps 10/22/24 Unknown Rx cholecalciferol (vitamin D3) 1,250 1,250 mcg PO QWEEK #12 caps 10/22/24 Unknown Rx mcg (50,000 unit) capsule duloxetine 60 mg capsule,delayed 60 mg PO BID #180 caps 10/22/24 Unknown Rx release magnesium oxide 400 mg (241.3 mg 400 mg PO BID #180 tabs 10/22/24 Unknown Rx magnesium) tablet gabapentin 300 mg capsule 300 mg PO DAILY #28 caps 10/29/24 Unknown Rx spironolactone 25 mg tablet 25 mg PO DAILY #30 tabs 11/04/24 Unknown Rx Allergy/AdvReac Type Severity Reaction Status Date / Time simvastatin Allergy Severe Myalgia Verified 11/07/24 19:14 Latex, Natural Rubber Allergy Unknown Rash Verified 11/07/24 19:14 metformin Allergy Other Verified 11/07/24 19:14 adhesive tape AdvReac Severe Rash Verified 11/07/24 19:14 Family History Father Heart disease Myocardial infarction CAD (coronary artery disease) Mother CAD (coronary artery disease) Heart disease Cancer breast Grandmother Colon cancer Daughter Breast cancer Surgical History History of left heart catheterization Hx of appendectomy H/O colectomy History of hysteroscopy Social History household members: family and other details: ex mother in law , ex current occupational status: disabled 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 Smoking Status: Never smoker second hand exposure: No alcohol intake: never substance use type: does not use what type of physical activity do you participate in: none seatbelt use: always do you feel safe at home: Yes ROS ROS ED Constitutional Constitutional ED: Denies chills, fever(s) or subjective Cardiovascular Cardiovascular: Denies chest pain, orthopnea or palpitations Respiratory/Chest Respiratory/Chest: Denies cough, dyspnea, dyspnea on exertion or orthopnea Gastrointestinal Gastrointestinal: Denies abdominal pain, nausea or vomiting Musculoskeletal Musculoskeletal: Denies arthralgias, back pain, myalgias or neck pain Hematologic/Lymphatic Hematologic/Lymphatic: Reports systems reviewed and no addt'l complaints, except as documented EXAM Physical Exam Const Vital Signs: 11/07/24 19:15 Temperature 97.4 F L Temperature Source Temporal Pulse Rate 87 Respiratory Rate 18 Blood Pressure 135/75 H Blood Pressure Mean 95 Pulse Ox 95 Oxygen Delivery Method Room Air Positive well nourished and well developed Constitutional Narrative: BMI is 38.5. Blood pressure slightly elevated otherwise vital signs unremarkable. General Appearance ED: well developed and pallor HEENT HEENT Narrative: Head is atraumatic normocephalic. Ears normal. Nares patent. Mucosas moist. Eyes PERRL and EOMs intact bilaterally General Eye ED: Negative for pale conjunctiva or scleral icterus Neck no lymphadenopathy, supple and no JVD Chest Wall Negative for inspection of chest normal Chest Narrative: Patient has scars where the AICD was placed. There is no evidence infection. She states it was placed in [place]. She has a [employer] Touch AICD. Resp normal respiratory effort and clear to auscultation bilaterally Cardio regular rate, regular rhythm, S1 normal heart sound, S2 normal heart sound and no murmurs Neuro oriented x3 and CN's II-XII intact bilaterally Sensorium / Orientation: alert Psych mental status grossly normal Skin no rashes or lesions noted, no wounds and skin turgor normal General Skin Exam: pallor; Negative for jaundice MDM MDM MDM Narrative Medical decision making narrative: Will have AICD interrogated to determine if the battery is functioning properly and if there was any events. Otherwise there is no indication for laboratory testing or imaging. History & Record Review Additional record(s) reviewed:: Prior outpatient record (Most recent cardiology note was authored by Shawanda Keane. The AICD was initially placed 2013. most recent echo is May 2024. Normal LV size. Ejection fraction is 40%. There is moderate global hypokinesis of the left ventricle.), Prior ED visit (Seen December 2023 for chest pain. She was discharged at that time. Note authored by Dr. Frazier was reviewed.) and Other (Patient had echocardiogram performed at [facility] March 2024 and August 2019 at [facility] in [facility]. The AICD was last interrogated February 2018.) Treatment and Re-Evaluation :: Report from [employer] regarding interrogation reveals no abnormality and approximate time to explant is 3.5 years. Therefore will discharge to home. Discharge Plan Triage Chief Complaint: Pacer/ICD ED Provider: Jeremiah Henley Dx/Rx/DC Orders Clinical Impression: Implantable cardioverter-defibrillator (ICD) in situ, Hyperlipidemia associated with type 2 diabetes mellitus, Anxiety, HTN (hypertension), Pulmonary HTN, Encounter for medical screening examination, Elevated blood pressure reading with diagnosis of hypertension Instructions: ED Screening Exam Medical Nonurgent Prescriptions: No Action docusate sodium [Colace] 100 mg capsule 100 mg PO BID PRN spironolactone 25 mg tablet 25 mg PO DAILY Qty: 30 11RF (DME) CareFine Pen Needle 30 gauge x 5/16 needle See Dose Instructions .ROUTE .MEDSUPPLY Qty: 120 11RF Dose Instruction: As directed Rx Instructions: use with insulin pen 4 x qd (DME) insulin syringe-needle U-100 [BD Insulin Syringe Ultra-Fine] 0.5 mL 31 gauge x 5/16 syringe See Dose Instructions .ROUTE .MEDSUPPLY Qty: 90 11RF Dose Instruction: As directed Rx Instructions: use to inject insulin tid ropinirole 0.5 mg tablet 0.5 mg PO QHS Qty: 90 0RF Rx Instructions: administer 1-3 hours before bedtime insulin lispro 100 unit/mL insulin pen 30 unit subcut TID Rx Instructions: 10 u w/ snacks (DME) FreeStyle Lance 3 [place] Misc See Rx Instructions .Route Qty: 1 0RF Rx Instructions: As directed (DME) FreeStyle Lance 3 Plus Sensor Device See Rx Instructions .Route Qty: 2 5RF Rx Instructions: 1 sensor q 15 Trulicity 1.5 mg/0.5 mL pen injector 1.5 mg subcut QWEEK Qty: 2 3RF (DME) OneTouch Verio test strips Strip See Rx Instructions .Route Qty: 100 0RF Rx Instructions: 4x/day (DME) 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 meter [OneTouch Verio Reflect Meter] Misc See Rx Instructions .Route Qty: 1 0RF Rx Instructions: As directed Entresto 24-26 mg tablet 1 tab PO BID Qty: 60 11RF pantoprazole [Protonix] 40 mg tablet,delayed release (DR/EC) 40 mg PO BID Qty: 180 0RF insulin glargine [Lantus Solostar U-100 Insulin] 100 unit/mL (3 mL) insulin pen 40 unit subcut BID Qty: 30 1RF magnesium oxide 400 mg (241.3 mg magnesium) tablet 400 mg PO BID Qty: 180 1RF Patient Comments: supplement duloxetine 60 mg capsule,delayed release(DR/EC) 60 mg PO BID Qty: 180 1RF cholecalciferol (vitamin D3) 1,250 mcg (50,000 unit) capsule 1,250 mcg PO QWEEK Qty: 12 1RF carvedilol 25 mg tablet 25 mg PO Q12H Qty: 180 1RF Rx Instructions: must administer with a meal/food cetirizine 10 mg capsule 10 mg PO DAILY Qty: 90 1RF atorvastatin [Lipitor] 10 mg tablet 10 mg PO DAILY Qty: 90 0RF gabapentin 300 mg capsule 300 mg PO DAILY Qty: 28 0RF Primary Care Provider: Lisseth Peñaloza Referrals: Lisseth Peñaloza MD [Primary Care Provider] - As Needed Print Language: Belarusian Disposition Disposition: Home, Self Care
[2024-11-07 19:47] VITALS: BP 127/69; PULSE 70; RESP 14; TEMP 37.2; O2SAT 95
== END 2024-11-07 19:50 | disposition home or self-care (01) ==
PROVIDERS: Emergency Provider Emergency Medicine; PCP Internal Medicine; Referring Provider Emergency Medicine; Visit Provider Emergency Medicine
DX: Z45.02 Encounter for adjustment and management of automatic implantable cardiac defibrillator (principal); I27.20 Pulmonary hypertension, unspecified; E11.40 Type 2 diabetes mellitus with diabetic neuropathy, unspecified; Z79.4 Long term (current) use of insulin; E11.69 Type 2 diabetes mellitus with other specified complication; I25.5 Ischemic cardiomyopathy; E78.5 Hyperlipidemia, unspecified; F41.9 Anxiety disorder, unspecified; I10 Essential (primary) hypertension; Z79.85 Long-term (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 of injectable non-insulin antidiabetic drugs; Z79.899 Other long term (current) drug therapy
CPT/HCPCS: 93288; 93289; 99283

== ENCOUNTER 2024-11-20 14:12 | Inpatient (IN) | payer MEDICAID, SELFPAY ==
[2024-11-20] VITALS (27 sets, daily range): BP systolic 74–143; BP diastolic 38–75; PULSE 103–131; RESP 14–28; TEMP 36.8–39.6; O2SAT 88–98; BMI 40.6; BMI 40.3
--- NOTE | 2024-11-20 14:29 | CT_ITS ---
PROCEDURE: BRAIN/HEAD WITHOUT CONTRAST 11/20/2024 REASON FOR EXAM: AMS FALL. HISTORY OF NEUROPATHY. TYPE 2 DIABETES. TECHNIQUE: Contiguous axial scans of 3.75 mm slice thicknesses with sagittal and coronal reconstruction images. One or more dose reduction techniques were utilized (e.g., automated exposure control, adjustment of mA and/or kv according to patient size, use of iterative reconstruction technique). RADIATION DOSE SUMMARY: DLP: 863.60 mGycm COMPARISON: NO RELEVANT PRIOR. FINDINGS: Cerebrum: No intraparenchymal hemorrhage. No abnormal areas of encephalomalacia. No mass effect or midline shift. Flowers-white matter differentiation is normal. Ventricles and cisterns: Appropriate size for patient's age. Extra-axial fluid: Unremarkable. Posterior fossa: Unremarkable cerebellum. No abnormalities involving the brainstem. Paranasal sinuses: Mild mucoperiosteal thickening, left maxillary sinus. Vasculature: Unremarkable. Mastoid air cells: unremarkable. Calvarium: Unremarkable. Soft tissues: Unremarkable.. Artifact from dental enhancements. Other: Mild leftward deviation of the nasal septum. CT/Brain/Head without Contrast IMPRESSION: No acute intracranial findings. Trace mucoperiosteal thickening, left maxillary sinus. Reading Location: [facility]
--- NOTE | 2024-11-20 14:29 | CT_ITS ---
PROCEDURE: SPINE LUMBAR WITHOUT CONTRAST 11/20/2024 REASON FOR EXAM: PAIN INJURY TECHNIQUE: Lumbar spine CT without contrast. Contiguous axial scans of 2.5 mm slice thicknesses. Sagittal and coronal reconstruction images were obtained. One or more dose reduction techniques were used (e.g., automated exposure control, adjustment of mA and/or kv according to patient size, use of iterative reconstruction technique). COMPARISON: None. RADIATION DOSE SUMMARY: DLP: 1956.53 mGycm FINDINGS: Vertebra: Vertebral bodies normal in height. Mild multilevel spondylosis. Alignment: No scoliosis. No spondylolisthesis. Discs: Marked narrowing of the L5-S1 interspace Foramens: Unremarkable. Facets: Unremarkable. Soft tissues: Prevertebral soft tissues are normal. CT/Spine Lumbar without Contrast IMPRESSION: No acute osseous abnormalities involving the lumbar spine. Severe degenerative disc disease at L5-S1. Mild spondylosis. Reading Location: [facility]
--- NOTE | 2024-11-20 14:31 | EDS_ITS ---
HPI History of Present Illness Chief Complaint: General Illness Informant: patient and EMS Narrative Narrative: 59-year-old female presenting to the emergency room for evaluation of low back pain. Patient states she called the ambulance for low back pain due to an injury 1 week ago when she tripped coming to the hospital for a stress test. She states that she did not get evaluated after the fall because she felt fine. She states that somebody at the stress test told her to take something for fever. When I ask why they would tell her to take something for fever she was not having any she states she does not know. From what I can see in the computer she came to the hospital 09 November for a pacemaker check I do not see a stress test in the computer system. She reports that she went home and states the back has progressively been hurting more. She states that she cannot walk. She said that just started today. She states that she cannot walk because of the pain not because of deficit. She states that she began to have a fever yesterday but does not know where the fever may be coming from. She states she has a generalized headache no rhinorrhea no sore throat no cough no neck pain no upper back pain no abdominal pain. She states her legs ache. She states that she normally has a red dot like rash on her lower legs. Patient has not sought evaluation for this. Patient received 50 mcg of fentanyl by EMS. Patient reports a history of diabetes hypertension GERD ischemic cardiomyopathy and has an ICD ([employer]-D IS-1/DF4/IS-1). Reported last ejection fraction of 40% in 2023. This history was extremely difficult to obtain in that the patient often answers I do not know and her answers often conflicts each other. To the best my ability this is her history and I repeated it back to her and she states that that is correct. [facility] Medical History Cardiomyopathy, ischemic Vitamin D deficiency Neuropathy History of placement of internal cardiac defibrillator (09/03/13) GERD (gastroesophageal reflux disease) Anxiety Obesity Type 2 diabetes mellitus with diabetic neuropathy, unspecified Chest pain Heart disease Headache Arthritis Seasonal allergies Nonischemic dilated cardiomyopathy Gout Pulmonary HTN Hyperlipidemia RLS (restless legs syndrome) HTN (hypertension) Home Medications ?Medication ?Instructions ?Recorded ?Last Taken ?Type docusate sodium 100 mg capsule 100 mg PO BID PRN 05/06 Unknown History (Colace) CareFine Pen Needle 30 gauge x #120 ea 05/29/24 Unknow n Rx 11/27 (pen needle, diabetic) insulin syringe-needle U-100 0.5 #90 ea 05/29/24 Unkno wn Rx mL 31 gauge x 16 (BD Insulin Syringe Ultra-Fine) sacubitril 24 mg-valsartan 26 mg 1 tab PO BID #60 tabs 06/03/24 Unknown Rx tablet (Entresto) blood sugar diagnostic (OneTouch #100 ea 10/15/24 Unkn own Rx Verio test strips) 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 meter (OneTouch #1 ea 10/15/24 Unknown R x Verio Reflect Meter) 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 meter,continuous #1 ea 10/15/24 Unknown Rx (FreeStyle Lance 3 [place]) 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 sensor (FreeStyle #2 ea 10/15/24 Unknown Rx Lance 3 Plus Sensor device) dulaglutide 1.5 mg/0.5 mL 1.5 mg (0.5 mL) subcut QWEEK #2 mL 10/15/24 Unknown Rx subcutaneous pen injector (Trulicity) insulin lispro 100 unit/mL 30 unit subcut TID 10/19/24 Unknown History subcutaneous pen insulin glargine 100 unit/mL (3 40 unit (0.4 mL) subcu t BID #30 mL 10/21/24 Unknown Rx mL) subcutaneous pen (Lantus Solostar U-100 Insulin) atorvastatin 10 mg tablet (Lipitor) 10 mg PO DAILY cho lesterol #90 tabs 10/22/24 Unknown Rx carvedilol 25 mg tablet 25 mg PO Q12H #180 tabs 10/13 Unknown Rx cetirizine 10 mg capsule 10 mg PO DAILY #90 caps 10/13 Unknown Rx cholecalciferol (vitamin D3) 1,250 1,250 mcg PO QWEEK #12 caps 10/22/24 Unknown Rx mcg (50,000 unit) capsule duloxetine 60 mg capsule,delayed 60 mg PO BID #180 cap s 10/22/24 Unknown Rx release magnesium oxide 400 mg (241.3 mg 400 mg PO BID #180 ta bs 10/22/24 Unknown Rx magnesium) tablet gabapentin 300 mg capsule 300 mg PO DAILY #28 caps Unknown Rx spironolactone 25 mg tablet 25 mg PO DAILY #30 tabs Unknown Rx pantoprazole 40 mg tablet,delayed 40 mg PO BID #180 ta bs 11/19/24 Unknown Rx release (Protonix) ropinirole 0.5 mg tablet 0.5 mg PO QHS #90 tabs 11/19 Unknown Rx Allergy/AdvReac Type Severity Reaction Status Date / Time simvastatin Allergy Severe Myalgia Verified 11/20/24 14:18 Latex, Natural Rubber Allergy Unknown Rash Verified 11/20/24 14:18 metformin Allergy Other Verified 11/20/24 14:18 adhesive tape AdvReac Severe Rash Verified 11/20/24 14:18 Family History Father Heart disease Myocardial infarction CAD (coronary artery disease) Mother CAD (coronary artery disease) Heart disease Cancer breast Grandmother Colon cancer Daughter Breast cancer Surgical History History of left heart catheterization Hx of appendectomy H/O colectomy History of hysteroscopy Social History household members: family and other details: ex mother in law , ex housing: house current occupational status: disabled 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 Smoking Status: Never smoker second hand exposure: No alcohol intake: never substance use type: does not use what type of physical activity do you participate in: none seatbelt use: always do you feel safe at home: Yes ROS ROS ED Constitutional Constitutional ED: Reports chills and fever(s); Denies weight loss Eyes Eyes: Denies change in vision or diplopia ENT ENT ED: Denies ear pain, rhinorrhea or sore throat Cardiovascular Cardiovascular: Denies chest pain, orthopnea, palpitations or racing heartbeat Respiratory/Chest Respiratory/Chest: Denies cough, dyspnea or orthopnea Gastrointestinal Gastrointestinal: Denies abdominal pain, diarrhea, nausea or vomiting Genitourinary Genitourinary ED: Denies dysuria, hematuria or urinary frequency Musculoskeletal Musculoskeletal: Reports back pain and other Details: Bilateral leg pain ; Denies arthralgias or myalgias Integumentary Denies abscess or rash Neurologic Neurologic: Reports headache(s); Denies paresthesias or weakness Psychiatric Psychiatric: Denies anxiety, depression, suicidal ideation or suicidal thoughts Endocrine Endocrinology: Denies polydipsia, polyphagia or polyuria Allergic/Immunologic Allergic/Immunologic ED: Denies mouth swelling, tongue swelling or urticaria EXAM Physical Exam Narrative Exam Narrative: Morbidly obese female laying in the bed. She is keeping her eyes closed throughout the conversation and keeps her right arm lifted up off the bed straight up. She does not know why she is doing that. Const Vital Signs: 11/20/24 14:13 11/20/24 14:18 11/20/24 16:21 Temperature 103.2 F H Temperature Source Oral Pulse Rate 120 H 130 H Respiratory Rate 18 17 Respiratory Effort Normal Non-Labored Respiratory Pattern Normal Blood Pressure 141/72 H 143/73 H Blood Pressure Mean 95 96 Pulse Ox 90 Oxygen Delivery Method Room Air Positive well nourished, well developed and obese General Appearance ED: well developed and NAD; Negative for pallor Nutritional Appearance: obese HEENT Reports normocephalic, head/scalp atraumatic and moist mucous membranes Eyes PERRL and EOMs intact bilaterally Neck no lymphadenopathy, supple and no JVD Neck Narrative: No meningeal signs General: Negative for tenderness Resp normal respiratory effort and clear to auscultation bilaterally Cardio regular rate, regular rhythm and no murmurs Rate: tachycardic GI normal to inspection, nondistended, normoactive bowel sounds and non-tender GI Narrative: Obesity limits deep palpation of the abdomen Auscultation: normoactive bowel sounds Palpation: soft; Negative for tender, guarding or rebound tenderness present Back/Spine no CVA tenderness Back/Spine Narrative: I asked the patient to sit up and she is able to do so. She notes pain to palpation over the lower lumbar spine. Erythema or increased warmth noted. There is no palpable muscle spasms. Extremity normal to inspection General Extremety ED: Negative for edema General Extremity: Negative for edema Neuro oriented x3 and CN's II-XII intact bilaterally Sensorium / Orientation: alert Motor Exam: strength 5/5 throughout Psych mental status grossly normal Mood & Affect: Negative for depressed or tearful Skin no wounds General Skin Exam: elasticity normal; Negative for jaundice or pallor Sepsis Attestation Sepsis Alert: Yes Sepsis Attestation: Agree w/Sepsis Date exam was performed: 11/20/24 Time exam was performed: 15:40 Possible Source of Sepsis: Unknown Sepsis Organ Dysfunction Criteria Present: Lactic Acid > 2 mmol/L Fluid Resuscitation Fluid resuscitation indicated?: Yes (NO) MDM MDM MDM Narrative Medical decision making narrative: Differential diagnosis would include but not limited to viral syndrome pneumonia UTI sepsis lumbar fracture discitis osteomyelitis bacteremia electrolyte abnormalities renal liver dysfunction Patient received IV fluids as she is not having hypotension. She received Tylenol for fever. Blood cultures and urine culture was obtained. White count 9.6 hemoglobin 12.6 platelet count 148. INR is 1 creatinine 0.83 normal LFTs. Lactic acid 2.4 urinalysis was no obvious infection. Plan for interpretation of the chest x-ray is no acute process. CT imaging of the brain showed no acute findings intracranially. CT of the lumbar spine demonstrates degenerative changes at L5-S1 with no acute fracture. Patient's EKG is AV paced at 128. Because of the possibility of discitis vancomycin and cefepime were ordered. Patient does not seem to have photophobia or neck pain to make me feel strongly that she needs a lumbar puncture. Because of her pacemaker I do not know if she is a candidate for MRI. I will be speaking with the hospitalist regarding admission for further care. History & Record Review Discussion w/independent historian: EMS personnel and Patient Additional record(s) reviewed:: Prior outpatient record, Prior ED visit and Prior labs Lab Data Attestation: I reviewed the patient's lab results. Labs: Laboratory Results - last 24 hr 11/20/24 14:33 WBC 9.6 RBC 4.29 Hgb 12.6 Hct 38.8 MCV 90.4 MCH 29.4 MCHC 32.5 RDW Std Deviation 46.5 H RDW Coeff of [place] 14.2 Plt Count 148 L MPV 10.4 Immature Gran % (Auto) 0.700 Neut % (Auto) 89.4 H Lymph % (Auto) 5.2 L [place] % (Auto) 4.1 Eos % (Auto) 0.4 Baso % (Auto) 0.2 Absolute Neuts (auto) 8.5 H Absolute Lymphs (auto) 0.50 L Nucleated RBC % 0 PT 13.6 INR 1.0 APTT 22.6 L Sodium 132 L Potassium 4.5 Chloride 100 Carbon Dioxide 24.5 Anion Gap 8 BUN 10 Creatinine 0.83 Estim Creat Clear Calc 104.64 Est GFR (MDRD) Non-Af 81 BUN/Creatinine Ratio 12.3 Glucose 263 H Lactic Acid 2.4 H* Calcium 9.3 Total Bilirubin 0.37 AST 24 ALT 26 Alkaline Phosphatase 175 H Total Protein 7.1 Albumin 3.7 Globulin 3.4 Albumin/Globulin Ratio 1.1 Urine Color Straw Urine Clarity Clear Urine pH 6.0 Ur Specific Hardy 1.015 Urine Protein Negative Urine Glucose (UA) 1000 H Urine Ketones Negative Urine Occult Blood Negative Urine Nitrite Negative Urine Bilirubin Negative Urine Urobilinogen Normal Ur Leukocyte Esterase Negative Urine RBC 0-5 SEEN Urine WBC 0-5 SEEN Ur Squamous Epith Cells 5-10 SEEN Urine Bacteria RARE Urine Mucus 0 SEEN Radiography Diagnostic Testing: Clinical Impression(s) from Imaging Studies Brain CT 11/20/24 14:29 IMPRESSION: No acute intracranial findings. Trace mucoperiosteal thickening, left maxillary sinus. [facility] Lum[facility]ine CT 11/20/24 14:29 IMPRESSION: No acute osseous abnormalities involving the lumbar spine. Severe degenerative disc disease at L5-S1. Mild spondylosis. Reading Location: [facility] Chest X-Ray 11/20/24 15:10 IMPRESSION: No Acute Findings. [facility] EKG Initial EKG: Attestation: I personally reviewed and interpreted this EKG as follows: Comments: AV paced at 120 bpm Prior EKG tracings: available for review Prior: Unchanged Discharge Plan Dx/Rx/DC Orders Clinical Impression: Acute febrile illness, Low back pain, Cardiomyopathy, ischemic, Sepsis Disposition Disposition: Acute Care [facility]
[2024-11-20 14:42] LABS: Mucous, Urine 0 SEEN /hpf (<or=2+)
[2024-11-20 14:47] LABS: Absolute Neutrophil Count 8.5 X10^3/uL (2.0-7.7); Basophil# 0.02 X10^3/uL; Basophil% 0.2 % (0-1); Eosinophil# 0.04 X10^3/uL; Eosinophils% 0.4 % (0-5); Hematocrit 38.8 % (37-47); Hemoglobin 12.6 g/dL (12.0-15.0); Lymphocyte % 5.2 % (19-41); Mean Corp Hgb Conc 32.5 g/dL (32-36); Mean Corpuscular Hgb 29.4 pg (27.0-32.0); Mean Corpuscular Volume 90.4 fL (81-99); Mean Platelet Vol. 10.4 fl (6.2-12.0); Monocyte# 0.39 X10^3/uL; Monocyte% 4.1 % (0-10); NRBC Flagged by Analyzer 0 % (0-5); Neutrophil # 8.54 X10^3/uL (2.7-7.7); Neutrophil % 89.4 % (47-70); POSITIVE DIFFERENTIAL YES; Platelet Count 148 K/mm3 (150-450); RBC Distribution Width CV 14.2 % (11.6-14.6); RBC Distribution Width SD 46.5 fl (35.1-43.9); Red Blood Count 4.29 M/mm3 (4.2-5.4); White Blood Count 9.6 K/mm3 (4.4-11.0)
[2024-11-20] MEDS: 0.9% Normal Saline (1000mL) 1,000 ML 999 ML IV ×3 (14:48→16:50)
[2024-11-20] MEDS: Acetaminophen 500 MG Tablet 1000 MG PO (14:48)
[2024-11-20 15:05] LABS: Prothrombin Time (Protime)PT. 13.6 SECONDS (11.7-14.9)
[2024-11-20 15:06] LABS: Partial Thromboplast Time 22.6 Seconds (24.1-36.2)
[2024-11-20 15:09] LABS: ALB/GLOB Ratio 1.1 RATIO (0.9-2.4); AST(SGOT) 24 U/L (<=31); Alanine Aminotransfer ALT/SGPT 26 U/L (<=34); Albumin, Serum 3.7 g/dL (3.5-5.0); Alkaline Phosphatase 175 U/L (35-104); Anion Gap 8 (5-15); BUN 10 mg/dL (4-19); BUN/Creat Ratio 12.3 RATIO (10-20); Calcium,Total 9.3 mg/dL (7.6-11.0); Carbon Dioxide 24.5 mmol/L (21.0-32.0); Chloride 100 mmol/L (98-108); Creatinine, Serum 0.83 mg/dL (0.70-1.20); EST Glomerular Filtration Rate 81 (>60); Estimated Creatinine Clearance 104.64 ml/min (50-250); Globulin 3.4 g/dL (2.2-4.2); Glucose 263 mg/dL (70-99); Potassium 4.5 mmol/L (3.3-5.1); Protein, Total 7.1 g/dL (5.9-8.4); Sodium Level 132 mmol/L (133-145); Total Bilirubin 0.37 mg/dL (0.00-1.30)
--- NOTE | 2024-11-20 15:10 | RAD_ITS ---
PROCEDURE: CHEST 1 VIEW (PORTABLE) 11/20/2024 REASON FOR EXAM: FEVER TECHNIQUE: Frontal view of the chest. COMPARISON: 01/12/2024 CHEST PA AND LATERAL FINDINGS: Lungs: Lungs clear of pneumonia and congestion. Pleura: No pleural effusions, thickening, or pneumothorax. Heart: Normal in size and configuration. Mediastinum/Delilah: Unremarkable. Great vessels: Unremarkable. Bones/soft tissues: Cardiac monitoring leads overlie the chest wall. Cardiac pacer generator and leads present. RAD/Chest 1 View (Portable) IMPRESSION: No Acute Findings. Reading Location: [facility]
[2024-11-20 15:21] LABS: Lactic Acid 2.4 mmol/L (0.0-2.0)
[2024-11-20 15:26] LABS: Color, Urine Straw (Yellow); Glucose, Dipstick 1000 mg/dl (Normal); Ketone-Dipstick Negative (Negative); Leukocyte Esterase-Dipstick Negative /ul (Negative); Nitrite-Dipstick Negative (Negative); Occult Blood-Urine Negative /ul (Negative); Protein-Dipstick Negative (Negative); Specific Gravity, Urine 1.015 (1.002-1.030); Urine Bilirubin Dipstick Negative (Negative); Urine Clarity Clear (Clear); Urine Urobilinogen Normal (Normal)
[2024-11-20] MEDS: Cefepime HCl 2 GM in 0.9% Normal Saline (100mL MB+) 100 ML IV ×2 (15:40→20:41)
[2024-11-20] MEDS: Vancomycin HCl 2,000 MG in 0.9% Normal Saline (500mL Bag) 500 ML 250 MG IV (16:29)
--- NOTE | 2024-11-20 16:54 | CT_ITS ---
PROCEDURE: ABDOMEN/PELVIS W IV CONT ONLY 11/20/2024 REASON FOR EXAM: ABDOMINAL PAIN AND FEVER TECHNIQUE: Abdomen and pelvis CT with intravenous contrast. Coronal and Sagittal reconstruction series were provided. CONTRAST: 100 mL of Isovue 370 One or more dose reduction techniques were used (e.g., Automated exposure control, adjustment of the mA and/or kV according to patient size, use of iterative reconstruction technique. RADIATION DOSE SUMMARY: DLP: 1356 mGycm COMPARISON: None FINDINGS: Trace bibasilar pleural effusions. Bibasilar subsegmental atelectasis. Extensive coronary atherosclerosis/stents. Trace pericardial effusion. The liver, spleen, both kidneys, and both adrenal glands demonstrate no acute findings. Fatty atrophy of the pancreas The gallbladder is unremarkable. The stomach is unremarkable. The aorta and IVC demonstrate no acute findings. There is no free air, free fluid or intestinal obstruction. The small bowel loops are not dilated. The appendix is not clearly identified, although there are no secondary signs of appendicitis. No bowel obstruction. The pelvic structures are intact. There is no solid pelvic mass. The urinary bladder is distended. Visualized osseous structures demonstrate no acute abnormality. CT/Abdomen/Pelvis W IV Cont ONLY IMPRESSION: No acute intra-abdominal process. Trace pericardial effusion. Reading Location: [id number]
--- NOTE | 2024-11-20 17:00 | PCM.HP.STD ---
HPI - General General Date of Admission: 11/20/24 Date of Service: 11/20/24 Chief Complaint: Back pain, fever HPI Narrative DOLORES SALMERON, is a 59-year-old female with history of ischemic cardiomyopathy with pacer defibrillator placement, diabetes, and GERD who presented to [facility] ED 11/20/2024 due to complaints of back pain and fever. Patient poor historian but seems that a week ago she had either stress test or a pacemaker check and fell in the parking lot, she did not get evaluated after that she reports she felt fine however since that time her back has been hurting her more and more and she has a hard time walking due to the pain, not because of a deficit. She also started to have a fever yesterday. In the ED temperature 103.2, pulse rate 120 with a blood pressure 141/72, respiratory 18 pulse ox initially 90% on room air. CBC with platelet count of 148, hemoglobin 12.6 and white blood cell count 9.6, lactic acid 2.4, UA not suggestive of infection. Chest x-ray obtained with no acute process. Given her fall a week ago she had a lumbar spine CT which showed severe degenerative disc disease at L5-S1 with no other acute osseous abnormalities and CT brain unremarkable aside from trace mucoperiosteal thickening of the left maxillary sinus. Patient diagnosed with sepsis and given fluids and IV antibiotics and hospitalist contacted for admission. Patient evaluated at bedside and reports the history as above of her walking in a parking lot a week ago and having a fall with progressively worsened lower back pain since that time. Patient was adamant for me and ED provider that she has no weakness in her legs, the pain is aching and across her lower back does not go into her legs, she is able to move her legs and roll in the bed, it is all pain localized to the lower back with no other pain in her spine, she has some chronic constipation that has been unchanged and denies any urinary changes. Patient did not endorse this for ED physician however she told me that she has some central abdominal pain going across her abdomen that is sometimes aching sometimes sharp and currently feels nauseous so a CT abdomen pelvis was added onto in the ED and showed trace pericardial effusion but no acute intra-abdominal process, did note distended urinary bladder [facility] Medical History Cardiomyopathy, ischemic Vitamin D deficiency Neuropathy History of placement of internal cardiac defibrillator (09/03/13) GERD (gastroesophageal reflux disease) Anxiety Obesity Type 2 diabetes mellitus with diabetic neuropathy, unspecified Chest pain Heart disease Headache Arthritis Seasonal allergies Nonischemic dilated cardiomyopathy Gout Pulmonary HTN Hyperlipidemia RLS (restless legs syndrome) HTN (hypertension) Home Medications ?Medication ?Instructions ?Recorded ?Last Taken ?Type docusate sodium 100 mg capsule 100 mg PO BID PRN 05/06/24 Unknown History (Colace) CareFine Pen Needle 30 gauge x #120 ea 05/29/24 Unknown Rx 5/16 (pen needle, diabetic) insulin syringe-needle U-100 0.5 #90 ea 05/29/24 Unknown Rx mL 31 gauge x 5/16 (BD Insulin Syringe Ultra-Fine) sacubitril 24 mg-valsartan 26 mg 1 tab PO BID #60 tabs 06/03/24 Unknown Rx tablet (Entresto) blood sugar diagnostic (OneTouch #100 ea 10/15/24 Unknown Rx Verio test strips) 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 meter (OneTouch #1 ea 10/15/24 Unknown Rx Verio Reflect Meter) 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 meter,continuous #1 ea 10/15/24 Unknown Rx (FreeStyle Lance 3 [place]) 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 sensor (FreeStyle #2 ea 10/15/24 Unknown Rx Lance 3 Plus Sensor device) dulaglutide 1.5 mg/0.5 mL 1.5 mg (0.5 mL) subcut QWEEK #2 mL 10/15/24 Unknown Rx subcutaneous pen injector (Trulicity) insulin lispro 100 unit/mL 30 unit subcut TID 10/19/24 Unknown History subcutaneous pen insulin glargine 100 unit/mL (3 40 unit (0.4 mL) subcut BID #30 mL 10/21/24 Unknown Rx mL) subcutaneous pen (Lantus Solostar U-100 Insulin) atorvastatin 10 mg tablet (Lipitor) 10 mg PO DAILY cholesterol #90 tabs 10/22/24 Unknown Rx carvedilol 25 mg tablet 25 mg PO Q12H #180 tabs 10/22/24 Unknown Rx cetirizine 10 mg capsule 10 mg PO DAILY #90 caps 10/22/24 Unknown Rx cholecalciferol (vitamin D3) 1,250 1,250 mcg PO QWEEK #12 caps 10/22/24 Unknown Rx mcg (50,000 unit) capsule duloxetine 60 mg capsule,delayed 60 mg PO BID #180 caps 10/22/24 Unknown Rx release magnesium oxide 400 mg (241.3 mg 400 mg PO BID #180 tabs 10/22/24 Unknown Rx magnesium) tablet gabapentin 300 mg capsule 300 mg PO DAILY #28 caps 10/29/24 Unknown Rx spironolactone 25 mg tablet 25 mg PO DAILY #30 tabs 11/04/24 Unknown Rx pantoprazole 40 mg tablet,delayed 40 mg PO BID #180 tabs 11/19/24 Unknown Rx release (Protonix) ropinirole 0.5 mg tablet 0.5 mg PO QHS #90 tabs 11/19/24 Unknown Rx Allergy/AdvReac Type Severity Reaction Status Date / Time simvastatin Allergy Severe Myalgia Verified 11/20/24 14:18 Latex, Natural Rubber Allergy Unknown Rash Verified 11/20/24 14:18 metformin Allergy Other Verified 11/20/24 14:18 adhesive tape AdvReac Severe Rash Verified 11/20/24 14:18 Family History Father Heart disease Myocardial infarction CAD (coronary artery disease) Mother CAD (coronary artery disease) Heart disease Cancer breast Grandmother Colon cancer Daughter Breast cancer Surgical History History of left heart catheterization Hx of appendectomy H/O colectomy History of hysteroscopy Social History household members: family and other details: ex mother in law , ex housing: house current occupational status: disabled 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 Smoking Status: Never smoker second hand exposure: No alcohol intake: never substance use type: does not use what type of physical activity do you participate in: none seatbelt use: always do you feel safe at home: Yes ROS ROS Narrative General: Patient reports fevers past 1 to 2 days HENT: Denies headache, denies stuffy nose, denies sore throat EYES: Denies changes in vision Resp: Denies cough, denies shortness of breath Cardiac: Denies chest pain GI: Reported some midline abdominal pain with a little bit of nausea, does report some constipation chronically : Denies changes in urination Extremity: Denies swelling MSK: Denies weakness, complains of low back pain Neuro: Denies any numbness/tingling Heme: Denies any bleeding or bruising Skin: Denies rashes Psychiatric: No complaints voiced Vital Signs Vital Signs Vital Signs: 11/20/24 14:13 11/20/24 14:18 11/20/24 16:21 Temperature 103.2 F H Temperature Source Oral Pulse Rate 120 H 130 H Respiratory Rate 18 17 Respiratory Effort Normal Non-Labored Respiratory Pattern Normal Blood Pressure 141/72 H 143/73 H Blood Pressure Mean 95 96 Pulse Ox 90 Oxygen Delivery Method Room Air Oxygen Flow Rate (L/min) 11/20/24 16:26 11/20/24 16:26 11/20/24 17:45 Temperature 103.2 F H 103.2 F H Temperature Source Oral Pulse Rate 130 H 131 H Respiratory Rate 17 20 H Respiratory Effort Respiratory Pattern Blood Pressure 143/73 H 118/47 L Blood Pressure Mean 96 70 Pulse Ox 98 97 88 Oxygen Delivery Method Room Air Room Air Oxygen Flow Rate (L/min) 11/20/24 18:00 Temperature 101.6 F H Temperature Source Oral Pulse Rate 126 H Respiratory Rate 28 H Respiratory Effort Respiratory Pattern Blood Pressure 120/75 Blood Pressure Mean 90 Pulse Ox 94 Oxygen Delivery Method Nasal Cannula Oxygen Flow Rate (L/min) 2 Weight Weight: 125 kg Body Mass Index (BMI) 40.6 Physical Exam Narrative General: Alert, oriented HEENT: Atraumatic, normocephalic Eyes: Anicteric, normal conjunctiva, extraocular movements grossly intact Neck: Supple Respiratory: Somewhat diminished at the bases, in possibly part of body habitus, normal respiratory effort Cardiovascular: Low-grade sinus tachycardia GI: Soft, mild tenderness in primarily the lower abdomen with no focal or localizing pain, nondistended Extremities: No significant pitting edema Musculoskeletal: Moving all extremities, able to lift both legs up in the air with equal strength without pain, no pain on palpation of the lower spine, no reports of sensation differences Neuro: No overt focal neurological deficits Skin: Does have some chronic changes in lower extremities Psych: Cooperative Results Lab / Micro Data 11/20/24 14:33 11/20/24 14:33 Labs: Laboratory Results - last 24 hr 11/20/24 14:33: WBC 9.6, RBC 4.29, Hgb 12.6, Hct 38.8, MCV 90.4, MCH 29.4, MCHC 32.5, RDW Std Deviation 46.5 H, RDW Coeff of Tatum 14.2, Plt Count 148 L, MPV 10.4, Immature Gran % (Auto) 0.700, Neut % (Auto) 89.4 H, Lymph % (Auto) 5.2 L, Sully % (Auto) 4.1, Eos % (Auto) 0.4, Baso % (Auto) 0.2, Absolute Neuts (auto) 8.5 H, Absolute Lymphs (auto) 0.50 L, Nucleated RBC % 0, PT 13.6, INR 1.0, APTT 22.6 L, Sodium 132 L, Potassium 4.5, Chloride 100, Carbon Dioxide 24.5, Anion Gap 8, BUN 10, Creatinine 0.83, Estim Creat Clear Calc 104.64, Est GFR (MDRD) Non-Af 81, BUN/Creatinine Ratio 12.3, Glucose 263 H, Lactic Acid 2.4 H*, Calcium 9.3, Total Bilirubin 0.37, AST 24, ALT 26, Alkaline Phosphatase 175 H, Total Protein 7.1, Albumin 3.7, Globulin 3.4, Albumin/Globulin Ratio 1.1, Urine Color Straw, Urine Clarity Clear, Urine pH 6.0, Ur Specific Martin 1.015, Urine Protein Negative, Urine Glucose (UA) 1000 H, Urine Ketones Negative, Urine Occult Blood Negative, Urine Nitrite Negative, Urine Bilirubin Negative, Urine Urobilinogen Normal, Ur Leukocyte Esterase Negative, Urine RBC 0-5 SEEN, Urine WBC 0-5 SEEN, Ur Squamous Epith Cells 5-10 SEEN, Urine Bacteria RARE, Urine Mucus 0 SEEN Micro: Microbiology 11/20/24 14:33 Mucosa - Nose SARS-CoV-2, Influenza & RSV (PCR) - Final Imaging Radiology Impression Brain CT 11/20/24 14:29 IMPRESSION: No acute intracranial findings. Trace mucoperiosteal thickening, left maxillary sinus. [facility] 11/20/24 14:29 IMPRESSION: No acute osseous abnormalities involving the lumbar spine. Severe degenerative disc disease at L5-S1. Mild spondylosis. Reading Location: [facility] Chest X-Ray 11/20/24 15:10 IMPRESSION: No Acute Findings. Reading Location: [facility] Abdomen/Pelvis CT 11/20/24 16:54 IMPRESSION: No acute intra-abdominal process. Trace pericardial effusion. Reading Location: [id number] Assessment & Plan Assessment/Plan (1) Sepsis: PLAN: Plan # Sepsis of unclear source -Patient tachycardic and febrile with an elevated lactic acid of 2.4 - UA does not appear infectious -Lumbar spine shows degenerative changes but no acute abnormalities -Patient does not think she can have MRI with her current pacemaker/defibrillator -Chest x-ray no acute process -Patient given 2 L of IV fluids in the ED given her cardiac history instead of the full 30 cc/kg given history of ischemic cardiomyopathy -CT abdomen and pelvis with distended urinary bladder, trace pericardial effusion, no other acute abnormality -Continue broad-spectrum antibiotics -Patient pancultured -It is certainly possible that patient has a discitis or lumbar pathology however without any focal deficits/neurological deficits do not suspect epidural abscess or neurologic compromise -If source not revealed or if it is determined that patient likely has discitis will ultimately need to consider ID consult as further culture and sensitivity data arises - Will check ESR, CRP, Pro-Jamal and repeat these in the a.m. to assess for antibiotic efficacy #Lower back pain -Lumbar spine with no acute process, noted severe degenerative disc disease at L5-S1 - Patient with no alarm signs or symptoms or significant exam findings suggestive of cord compression -Workup as above - If low back pain does not improve and there is low suspicion as this being source of her sepsis may need to consider pain management or spine consults -Pain control -Lidocaine patch - PT/OT # History of ischemic cardiomyopathy -Follows with cardiology on an outpatient basis -Most recent echo 05/26/2024 with moderate global hypokinesis of left ventricle and EF of 40% -Monitor fluid status closely -Daily weights, I's and O's -DASH diet -Will decrease patient's Coreg given she is septic and want to avoid hypotension, Coreg and Entresto with parameters - Will hold spironolactone while assessing patient's hemodynamic status in this acute period and add back as tolerated #Morbid obesity -BMI documented as 40.7 kg/m? at time of admission -Complicates treatment, prognosis, outcomes -Recommend weight loss and lifestyle changes #Type 2 diabetes mellitus -Glucose checks and sliding scale insulin - Awaiting updated home medication dose for her long-acting, appears she may have filled 40 twice daily most recently, will start lower than that to avoid hypoglycemia and uptitrate based on glucoses and once this is confirmed #GERD -Continue PPI # Restless leg syndrome -continue patient's home medication regimen #DVT ppx: Lovenox subcu Mariah Brewer MD Time spent in the patient's overall evaluation,decision-making process, review of diagnostic data, adjustment of management, discussion with other providers, nursing nursing and ancillary staff involved in patient's care documentation, 62 Minutes Charges/Coding Visit Charges Inpatient E&M: 30486 Init Hosp L3
[2024-11-20 17:20] LABS: Red Blood Cells-Urine 0-5 SEEN /hpf (0-5); Squamous Epithelial Cells - UA 5-10 SEEN /hpf (5-10); White Blood Cells 0-5 SEEN /hpf (0-5)
[2024-11-20 17:21] LABS: Bacteria RARE /hpf (None Seen)
--- NOTE | 2024-11-20 18:06 | PCM.HOSP.N ---
Sepsis Attestation Sepsis Alert: Yes Sepsis Attestation: Agree w/Sepsis Date exam was performed: 11/20/24 Time exam was performed: 16:30 Possible Source of Sepsis: Bone/joint and Unknown Sepsis Organ Dysfunction Criteria Present: Lactic Acid > 2 mmol/L Supportive Findings: With tachycardia and febrile and new O2 requirement Fluid Resuscitation Fluid resuscitation indicated?: Yes Fluid Resuscitation ordered: Lesser volume fluid bolus ordered Amount of fluid ordered: 2,000 Reason for lesser fluid bolus:: Other (Patient with history of ischemic cardiomyopathy, additionally not presently hypotensive) Sepsis Note Date exam was performed: 11/20/24 Time exam was performed: 18:00 Sepsis Attestation: Sepsis re-evaluation was performed Response to fluids: Fluid responsive hypotension (Pt was not hypotensive)
[2024-11-20] MEDS: Ibuprofen 600 MG Tablet PO (18:24)
[2024-11-20 18:40] LABS: Reflex Lactate? Y
[2024-11-20] MEDS: Acetaminophen 325 MG Tablet 650 MG PO (20:18)
[2024-11-20] MEDS: 0.9% Normal Saline (500mL Bag) 500 ML 999 ML IV (20:25)
[2024-11-20 20:30] LABS: Erythrocyte Sedimentation Rate 19 mm/hr (0-30)
[2024-11-20] MEDS: 0.9% Saline Lock 10 ML Syringe IV (20:42)
[2024-11-20] MEDS: 0.9% Normal Saline (250mL Bag) 250 ML 15 ML IV (20:43)
[2024-11-20 20:58] LABS: Lactic Acid 2.4 mmol/L (0.0-2.0)
[2024-11-20 21:25] LABS: Bedside Glucose 123 mg/dL (74-106)
--- NOTE | 2024-11-20 21:31 | ECHOCS_ITS ---
Reason For Study Reason For Study: CHF Procedure This was a 2D Doppler, Color Flow transthoracic echocardiogram. The study was technically difficult. Exam performed portable in ICU/CCU. Left Ventricle Normal size and thickness. Moderately reduced global LV systolic function. Estimated LVEF 40%. Stage I diastolic dysfunction. Right Ventricle ICD or pacer leads identified within the right ventricle. Atria The left atrium is mildly enlarged. The right atrium is mildly enlarged. Mitral Valve Trivial mitral valve insufficiency. Tricuspid Valve Trivial tricuspid valve insufficiency. Normal pulmonary artery pressure. Aortic Valve Trisinus/trileaflet aortic valve. Pulmonic Valve The pulmonic valve is not well visualized. Great Vessels Normal sized aortic root. Pericardium/Pleural Trivial pericardial effusion. Medication Diluted definity 2.0ml given slow IV push to enhance endocardial definition. MMode/2D Measurements & Calculations LVIDd: 5.5 cm IVSd: 1.0 cm Ao root diam: 2.9 cm LVIDs: 4.3 cm LVPWd: 0.94 cm FS: 21.2 % LAV(MOD-bp): 38.2 ml LVAd ap4: 29.3 cm2 LVAd ap2: 27.8 cm2 LAV(MOD-bp) Indexed: 16.2 ml/m2 LVLd ap4: 7.5 cm LVLd ap2: 7.5 cm LAV(MOD-sp2): 34.8 ml EDV(MOD-sp4): 93.2 ml EDV(MOD-sp2): 85.6 ml LAV(MOD-sp4): 40.6 ml EDV(sp4-el): 97.0 ml EDV(sp2-el): 87.5 ml LVAs ap4: 21.4 cm2 LVAs ap2: 20.9 cm2 LVLs ap4: 6.9 cm LVLs ap2: 6.8 cm ESV(MOD-sp4): 54.2 ml ESV(MOD-sp2): 52.7 ml ESV(sp4-el): 56.7 ml ESV(sp2-el): 54.2 ml EF(MOD-sp4): 41.8 % EF(MOD-sp2): 38.4 % EF(sp4-el): 41.6 % SV(MOD-sp4): 39.0 ml SV(MOD-sp2): 32.8 ml SV(sp4-el): 40.3 ml SI(MOD-sp4): 16.6 ml/m2 SI(MOD-sp2): 13.9 ml/m2 LA A4 area: 16.9 cm2 LA dimension(2D): 4.1 cm Time Measurements MV dec time: 0.28 sec Doppler Measurements & Calculations MV E max saeid: 70.7 cm/sec Lat Peak E' Saeid: 7.2 cm/sec Med Peak E' Saeid: 5.9 cm/sec MV A max saeid: 81.7 cm/sec E/E' lat: 9.9 E/E' med: 12.1 MV E/A: 0.87 MV dec slope: 252.4 cm/sec2 Ao V2 max: 144.9 cm/sec LV V1 max: 102.5 cm/sec Ao max P.4 mmHg LV V1 max P.2 mmHg Ao V2 mean: 107.0 cm/sec LV V1 mean P.5 mmHg Ao mean P.1 mmHg LV V1 mean: 73.7 cm/sec Ao V2 VTI: 29.6 cm LV V1 VTI: 20.4 cm AV (velocity ratio): 0.69 PA V2 max: 90.7 cm/sec TR max saeid: 201.4 cm/sec TR max P.2 mmHg ECHO/Echo Complete W/ Contrast Interpretation Summary The study was technically difficult. Moderately reduced global LV systolic function. Estimated LVEF 40%. Stage I sabrina stolic dysfunction. The left atrium is mildly enlarged. Trivial pericardial effusion. Ordering Physician: Jesus Varela Referring Physician: Lisseth Peñaloza Performed By: Nano Leung RDCS
--- NOTE | 2024-11-20 21:41 | CON.PCM.CC_ITS ---
HPI Consult Data Date of Consult: 11/20/24 HPI Narrative Reason for Consultation: undiferrentiated shock HPI Narrative: DOLORES SALMERON, is a 59 F who presents with low MAP and SBP to the ICU. Patient CC is pain in the low back, but denies any direct trauma to the back. She did fall a few days ago, but states she fell onto her palms and belly. She denies flank pain and dysuria, but has been treating a yeast infection. She denies changes in BM and urinary habits. Denies swelling despite a background of AICD and CHFrEF/ICMP40%. She was noted to have fever in ED, but denies feeling feverish at home. Denies cough, chest congestion, rhinorrhea, diarrhea, dysuria, abdominal cramping, and pretty much all else. No skin wounds or rashes or new lumps or bumps. In total, she has received 3.5L IVF by the time of evaluation and still has MAP ~61torr. Straight leg raise test at bedside is negative. LA remains elevated at a level ~2.4. [facility] Medical History Cardiomyopathy, ischemic Vitamin D deficiency Neuropathy History of placement of internal cardiac defibrillator (09/03/13) GERD (gastroesophageal reflux disease) Anxiety Obesity Type 2 diabetes mellitus with diabetic neuropathy, unspecified Chest pain Heart disease Headache Arthritis Seasonal allergies Nonischemic dilated cardiomyopathy Gout Pulmonary HTN Hyperlipidemia RLS (restless legs syndrome) HTN (hypertension) Home Medications ?Medication ?Instructions ?Recorded ?Last Taken ?Type docusate sodium 100 mg capsule 100 mg PO BID PRN 05/06 Unknown History (Colace) CareFine Pen Needle 30 gauge x #120 ea 05/29/24 Unknow n Rx 5/16 (pen needle, diabetic) insulin syringe-needle U-100 0.5 #90 ea 05/29/24 Unkno wn Rx mL 31 gauge x 5/16 (BD Insulin Syringe Ultra-Fine) sacubitril 24 mg-valsartan 26 mg 1 tab PO BID #60 tabs 06/03/24 Unknown Rx tablet (Entresto) blood sugar diagnostic (OneTouch #100 ea 10/15/24 Unkn own Rx Verio test strips) 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 meter (OneTouch #1 ea 10/15/24 Unknown R x Verio Reflect Meter) 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 meter,continuous #1 ea 10/15/24 Unknown Rx (FreeStyle Lance 3 [place]) 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 sensor (FreeStyle #2 ea 10/15/24 Unknown Rx Lance 3 Plus Sensor device) dulaglutide 1.5 mg/0.5 mL 1.5 mg (0.5 mL) subcut QWEEK #2 mL 10/15/24 Unknown Rx subcutaneous pen injector (Trulicity) insulin lispro 100 unit/mL 30 unit subcut TID 10/19/24 Unknown History subcutaneous pen insulin glargine 100 unit/mL (3 40 unit (0.4 mL) subcu t BID #30 mL 10/21/24 Unknown Rx mL) subcutaneous pen (Lantus Solostar U-100 Insulin) atorvastatin 10 mg tablet (Lipitor) 10 mg PO DAILY cho lesterol #90 tabs 10/22/24 Unknown Rx carvedilol 25 mg tablet 25 mg PO Q12H #180 tabs 10/13 Unknown Rx cetirizine 10 mg capsule 10 mg PO DAILY #90 caps 10/13 Unknown Rx cholecalciferol (vitamin D3) 1,250 1,250 mcg PO QWEEK #12 caps 10/22/24 Unknown Rx mcg (50,000 unit) capsule duloxetine 60 mg capsule,delayed 60 mg PO BID #180 cap s 10/22/24 Unknown Rx release magnesium oxide 400 mg (241.3 mg 400 mg PO BID #180 ta bs 10/22/24 Unknown Rx magnesium) tablet gabapentin 300 mg capsule 300 mg PO DAILY #28 caps Unknown Rx spironolactone 25 mg tablet 25 mg PO DAILY #30 tabs Unknown Rx pantoprazole 40 mg tablet,delayed 40 mg PO BID #180 ta bs 11/19/24 Unknown Rx release (Protonix) ropinirole 0.5 mg tablet 0.5 mg PO QHS #90 tabs 11/19 Unknown Rx Allergy/AdvReac Type Severity Reaction Status Date / Time simvastatin Allergy Severe Myalgia Verified 11/20/24 14:18 Latex, Natural Rubber Allergy Unknown Rash Verified 11/20/24 14:18 metformin Allergy Other Verified 11/20/24 14:18 adhesive tape AdvReac Severe Rash Verified 11/20/24 14:18 Family History Father Heart disease Myocardial infarction CAD (coronary artery disease) Mother CAD (coronary artery disease) Heart disease Cancer breast Grandmother Colon cancer Daughter Breast cancer Surgical History History of left heart catheterization Hx of appendectomy H/O colectomy History of hysteroscopy Social History household members: family and other details: ex mother in law , ex housing: house current occupational status: disabled 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 Smoking Status: Never smoker second hand exposure: No alcohol intake: never substance use type: does not use what type of physical activity do you participate in: none seatbelt use: always do you feel safe at home: Yes ROS ROS Narrative 12 or more systems reviewed and are negative except as per HPI Objective Data Objective Data Vital Signs: Vital Signs Last response 3 Temperature 37.4 C H 11/20/24 21:00 Temperature Source Oral 11/20/24 21:00 Pulse Rate 121 H 11/20/24 21:00 Respiratory Rate 16 11/20/24 21:00 Respiratory Effort Normal, Non-Labored 11/20/24 14:18 Respiratory Pattern Normal 11/20/24 14:18 Blood Pressure 101/65 11/20/24 21:00 Blood Pressure Mean 77 11/20/24 21:00 Blood Pressure Source Monitor 11/20/24 20:45 Blood Pressure Position Semi-Fowlers 11/20/24 20:45 Blood Pressure Location Right Arm 11/20/24 20:45 Pulse Ox 95 11/20/24 21:00 Oxygen Delivery Method Nasal Cannula 11/20/24 21:00 Oxygen Flow Rate (L/min) 2 11/20/24 21:00 I&O: I&O Last 24 Hours 3 11/19/24 11/20/24 11/20/24 23:59 11:59 23:59 Intake Total 4140 / 4140 Balance 4140 / 4140 I&O: Total Stay 3 11/20/24 14:12 thru 11/20/24 20:59 Intake Total 4140 Balance 4140 Current Meds Ordered / Administered: Current meds ordered / Administered 3 Generic Name Dose Route Start Last Admin Trade Name Freq PRN Reason Stop Dose Admin Acetaminophen 650 mg 11/20/24 21:00 11/20/24 20:18 Acetaminophen 325 Mg Tablet PO 650 mg Q6H PRN PRN Administration Pain 1-10 Or Fever >100.7 Albuterol Sulfate 2.5 mg 11/20/24 19:29 Albuterol 2.5 Mg/3 Ml Vial.Neb. INHALATION Q2H PRN PRN SOB &/OR WHEEZING Atorvastatin Calcium 10 mg 11/21/24 10:00 Atorvastatin Calcium 10 Mg Tablet PO DAILY [facility] Carvedilol 6.25 mg 11/20/24 22:00 Carvedilol 6.25 Mg Tablet PO BID JAZMÍN Protocol Duloxetine HCl 60 mg 11/20/24 22:00 Duloxetine Hcl 60 Mg Capsule PO BID [facility] Enoxaparin Sodium 40 mg 11/20/24 22:00 Enoxaparin 40 Mg/0.4 Ml Syringe SC BID [facility] Gabapentin 300 mg 11/21/24 10:00 Gabapentin 300 Mg Capsule PO DAILY JAZMÍN Glucagon 1 mg 11/20/24 19:29 Glucagon 1 Mg/Ml Syringe IM X1 PRN HYPOGLYCEMIA Protocol Dextrose 250 mls @ 0 mls/hr 11/20/24 19:29 Dextrose 10%-Water IV .Q0M PRN HYPOGLYCEMIA Protocol As Directed Vancomycin IV-PHARMACY TO DOSE 500 mls @ 250 mls/hr 11/20/24 19:29 1 each/ Sodium Chloride IV X1 PRN Rx to Dose Protocol Cefepime HCl 2 gm/ Sodium 100 mls @ 200 mls/hr 11/20/24 22:00 11/20/24 20:41 Chloride IV 200 mls/hr Q8 JAZMÍN Administration Sodium Chloride 250 mls @ 15 mls/hr 11/20/24 19:30 11/20/24 20:43 IV 15 mls/hr .[id number] PRN Administration Saline Flush Sodium Chloride 250 mls @ 15 mls/hr 11/20/24 19:30 IV .[id number] PRN Additional IVPB Infusion Norepinephrine Bitartrate 8 mg 250 mls @ 9.375 mls/hr 11/20/24 20:20 / Sodium Chloride CONT INF .[id number] JAZMÍN Protocol 5 MCG/MIN Vancomycin HCl 1,750 mg/ 535 mls @ 250 mls/hr 11/21/24 04:30 Sodium Chloride IV Q12H [facility] Insulin Glargine 20 unit 11/20/24 22:00 Insulin Glargine-Yfgn 100 Unit/Ml Pen SC BID [facility] Insulin Human Lispro 0 unit 11/20/24 22:00 11/20/24 20:43 Insulin Lispro 100 Unit/Ml Insuln.Pen SC Not Given ACHS [facility] Protocol Iopamidol 0 ml 11/20/24 17:00 11/20/24 20:04 Contrast Allergy Safety Check IV Not Given X1 [facility] Lidocaine 1 patch 11/21/24 10:00 Lidocaine 5% Patch TOPICAL DAILY [facility] Protocol Loratadine 10 mg 11/21/24 10:00 Loratadine 10 Mg Tablet PO DAILY [facility] Melatonin 10 mg 11/20/24 19:29 Melatonin 3 Mg Tablet PO QHS PRN PRN INSOMNIA Morphine Sulfate 2 - 4 mg 11/20/24 19:29 Morphine 2 Mg/Ml Syringe IV Q3H PRN PRN Pain Score 6-10 Ondansetron HCl 4 mg 11/20/24 19:29 Ondansetron 4 Mg/2 Ml Vial IV Q8H PRN PRN NAUSEA/VOMITING Oxycodone HCl 5 mg 11/20/24 19:29 Oxycodone 5 Mg Tablet PO Q4H PRN PRN Pain Score 4-10 Pantoprazole Sodium 40 mg 11/20/24 22:00 Pantoprazole Sodium 40 Mg Tablet PO BID [facility] Pramipexole Dihydrochloride 0.25 mg 11/20/24 22:00 Pramipexole Di-Hcl 0.25 Mg Tablet PO QHS [facility] Sacubitril/Valsartan 1 each 11/20/24 22:00 Sacubitril/Valsartan 24/26 Mg Tablet PO BID [facility] Senna/Docusate Sodium 2 tablet 11/20/24 19:29 Senna/Docusate Sodium 1 Tablet PO BID PRN PRN Constipation Sodium Chloride 10 - 40 ml 11/20/24 19:30 11/20/24 20:42 0.9% Saline Lock 10 Ml Syringe IV 10 ml UD PRN Administration SALINE FLUSH Vancomycin Protocol 1 lab 11/22/24 03:00 Vancomycin Trough/Random Due MC 11/22/24 05:00 DAILY [facility] Physical Exam Const alert, oriented x3 and no apparent distress General Appearance: cooperative, well developed and ill appearing HEENT normocephalic, head/scalp atraumatic and moist oral mucous membranes Mouth: oral and palatal mucosa normal Eyes PERRL, EOMs intact bilaterally, conjunctivae normal and no scleral icterus Neck full ROM, supple and no JVD Chest inspection of chest normal Resp normal respiratory effort and no use of accessory muscles Effort and Inspection: able to speak in complete sentences Auscultation: rales Cardio Rate: tachycardic GI normal to inspection, nondistended, normoactive bowel sounds, soft to palpation and non-tender no CVA tenderness Extremity no clubbing, cyanosis or edema Skin no rashes or lesions noted General Skin Exam: erythema Neuro oriented x3, CN's II-XII intact bilaterally, moves all extremities and no focal motor deficits Psych cooperative and affect normal Appearance: well kempt Speech: normal speech Lab / Micro Data Attestation: I reviewed the patient's lab results. 11/20/24 14:33 11/20/24 14:33 Labs: Laboratory Results - last 24 hr 11/20/24 14:33: WBC 9.6, RBC 4.29, Hgb 12.6, Hct 38.8, MCV 90.4, MCH 29.4, MCHC 32.5, RDW Std Deviation 46.5 H, RDW Coeff of [place] 14.2, Plt Count 148 L, MPV 10.4, Immature Gran % (Auto) 0.700, Neut % (Auto) 89.4 H, Lymph % (Auto) 5.2 L, [place] % (Auto) 4.1, Eos % (Auto) 0.4, Baso % (Auto) 0.2, Absolute Neuts (auto) 8.5 H, Absolute Lymphs (auto) 0.50 L, Nucleated RBC % 0, ESR 19, PT 13.6, INR 1.0, APTT 22.6 L, Sodium 132 L, Potassium 4.5, Chloride 100, Carbon Dioxide 24.5, Anion Gap 8, BUN 10, Creatinine 0.83, Estim Creat Clear Calc 104.64, Est GFR (MDRD) Non-Af 81, BUN/Creatinine Ratio 12.3, Glucose 263 H, Lactic Acid 2.4 H*, Calcium 9.3, Total Bilirubin 0.37, AST 24, ALT 26, Alkaline Phosphatase 175 H, C-React Prot Ext Range 11.00 H, Total Protein 7.1, Albumin 3.7, Globulin 3.4, Albumin/Globulin Ratio 1.1, Procalcitonin 0.10, Urine Color Straw, Urine Clarity Clear, Urine pH 6.0, Ur Specific [place] 1.015, Urine Protein Negative, Urine Glucose (UA) 1000 H, Urine Ketones Negative, Urine Occult Blood Negative, Urine Nitrite Negative, Urine Bilirubin Negative, Urine Urobilinogen Normal, Ur Leukocyte Esterase Negative, Urine RBC 0-5 SEEN, Urine WBC 0-5 SEEN, Ur Squamous Epith Cells 5-10 SEEN, Urine Bacteria RARE, Urine Mucus 0 SEEN 11/20/24 19:56: Lactic Acid 2.4 H* 11/20/24 20:36: POC Glucose 123 H Micro: Microbiology 11/20/24 14:33 Mucosa - Nose SARS-CoV-2, Influenza & RSV (PCR) - Final Imaging Radiology Impression Brain CT 11/20/24 14:29 IMPRESSION: No acute intracranial findings. Trace mucoperiosteal thickening, left maxillary sinus. Reading Location: [facility] Lumbar Spine CT 11/20/24 14:29 IMPRESSION: No acute osseous abnormalities involving the lumbar spine. Severe degenerative disc disease at L5-S1. Mild spondylosis. Reading Location: [facility] Chest X-Ray 11/20/24 15:10 IMPRESSION: No Acute Findings. Reading Location: [facility] Abdomen/Pelvis CT 11/20/24 16:54 IMPRESSION: No acute intra-abdominal process. Trace pericardial effusion. Reading Location: [id number] Reviewed personally as well Assessment and Plan . Assessment and plan: ICU problem List: Undifferentiated shock, probably not hypovolemic or neurogenic Fever of unknown origina kellie Plan: Blood cx pending UCx pending, but UA not convincing for infection CT abd negative for intrabdominal pathology Recommend CT chest ECHO, full Arterial Line start NE for shock, given lack of response to fluids and leg raise testing may simply need to tolerate tachycardia for now, as cardiotonic agents like dopamine and milrinone still can cause tachycardi Cardiology consultation Jesus Varela MD [facility] Critical Care Time: 69 min The entirety of this encounter was done via Telemedicine
[2024-11-20] MEDS: Norepinephrine 8 MG in 0.9% Normal Saline (250mL Bag) 242 ML 9.4 MG CONT INF (21:42)
[2024-11-20] MEDS: Enoxaparin 40 MG/0.4 ML Syringe SC (21:56)
[2024-11-20] MEDS: Insulin Glargine-YFGN 100 UNIT/ML Pen 20 UNIT SC (21:57)
[2024-11-20] MEDS: DULoxetine Hcl 60 MG Capsule PO (21:58)
[2024-11-20] MEDS: Pantoprazole Sodium 40 MG Tablet PO (22:00)
[2024-11-20] MEDS: Pramipexole Di-HCl 0.25 MG Tablet PO (22:01)
[2024-11-21] VITALS (33 sets, daily range): BP systolic 84–138; BP diastolic 49–104; PULSE 76–103; RESP 13–21; TEMP 36.4–37.7; O2SAT 91–99; BMI 39.2
[2024-11-21] MEDS: Albumin Human 25% (100 mL) 25 GM/100 ML BAG IV (00:45)
[2024-11-21] MEDS: 0.9% Saline Lock 10 ML Syringe IV ×2 (00:51→04:24)
[2024-11-21] MEDS: Acetaminophen 325 MG Tablet 650 MG PO ×3 (02:42→16:43)
[2024-11-21] MEDS: Vancomycin HCl 1,750 MG in 0.9% Normal Saline (500mL Bag) 500 ML 250 MG IV ×2 (04:24→16:21)
[2024-11-21 04:46] LABS: Absolute Lymphocyte Count 0.84 X10^3/uL (0.83-4.51); Absolute Neutrophil Count 9.7 X10^3/uL (2.0-7.7); Basophil# 0.04 X10^3/uL; Basophil% 0.4 % (0-1); Eosinophil# 0.01 X10^3/uL; Eosinophils% 0.1 % (0-5); Hematocrit 34.4 % (37-47); Hemoglobin 11.2 g/dL (12.0-15.0); Lymphocyte # 0.84 X10^3/ul (0.83-4.51); Lymphocyte % 7.5 % (19-41); Mean Corp Hgb Conc 32.6 g/dL (32-36); Mean Corpuscular Hgb 29.5 pg (27.0-32.0); Mean Corpuscular Volume 90.5 fL (81-99); Mean Platelet Vol. 10.6 fl (6.2-12.0); Monocyte# 0.52 X10^3/uL; Monocyte% 4.7 % (0-10); NRBC Flagged by Analyzer 0 % (0-5); Neutrophil # 9.66 X10^3/uL (2.7-7.7); Neutrophil % 86.6 % (47-70); Platelet Count 105 K/mm3 (150-450); RBC Distribution Width CV 14.4 % (11.6-14.6); RBC Distribution Width SD 47.7 fl (35.1-43.9); White Blood Count 11.2 K/mm3 (4.4-11.0)
[2024-11-21 04:49] LABS: Erythrocyte Sedimentation Rate 26 mm/hr (0-30)
[2024-11-21 05:07] LABS: Lactic Acid 1.5 mmol/L (0.0-2.0)
[2024-11-21 05:13] LABS: Anion Gap 10 (5-15); BUN 13 mg/dL (4-19); BUN/Creat Ratio 15.4 RATIO (10-20); Calcium,Total 8.4 mg/dL (7.6-11.0); Carbon Dioxide 22.5 mmol/L (21.0-32.0); Chloride 104 mmol/L (98-108); Creatinine, Serum 0.87 mg/dL (0.70-1.20); EST Glomerular Filtration Rate 78 (>60); Estimated Creatinine Clearance 99.31 ml/min (50-250); Glucose 266 mg/dL (70-99); Procalcitonin 8.24 ng/mL (<=0.10); Sodium Level 136 mmol/L (133-145)
[2024-11-21] MEDS: Cefepime HCl 2 GM in 0.9% Normal Saline (100mL MB+) 100 ML IV ×3 (05:46→21:24)
[2024-11-21] MEDS: 0.9% Normal Saline (250mL Bag) 250 ML 15 ML IV (05:46)
[2024-11-21] MEDS: Insulin Lispro 100 UNIT/ML INSULN.PEN SC ×4 (07:09→21:27)
[2024-11-21 07:11] LABS: Bedside Glucose 248 mg/dL (74-106)
--- NOTE | 2024-11-21 07:15 | PCM.PN.HOSP ---
Reason for Visit Reason for Visit: Diagnoses Sepsis, unspecified organism (11/20/24) Subjective Subjective Feeling better. Weaned off norepinephrine. Objective Data Objective Data Vital Signs: Vital Signs Temp Pulse Resp BP Pulse Ox O2 Del Method O2 Flow Rate 36.3 C L 83 13 122/81 H 97 Nasal Cannula 2 11/21/24 04:00 11/21/24 06:15 11/21/24 06:00 11/21/24 06:15 11/21/24 06:00 11/21/24 06:00 11/21/24 06:00 Oxygen Flow Rate (L/min) 2 Oxygen Delivery Method Nasal Cannula Weight: 120.202 kg Body Mass Index (BMI) 39.2 Intake & Output: Intake and Output for Last 24 Hours 11/19/24 11/20/24 11/21/24 23:59 23:59 23:59 Intake Total 4276.98 / 4281.68 985.27 / 985.27 Output Total 350 / 350 700 / 700 Balance 3926.98 / 3931.68 285.27 / 285.27 Lab / Micro Data 11/21/24 04:01 11/21/24 04:01 Labs: Laboratory Results - last 24 hr 11/20/24 14:33: WBC 9.6, RBC 4.29, Hgb 12.6, Hct 38.8, MCV 90.4, MCH 29.4, MCHC 32.5, RDW Std Deviation 46.5 H, RDW Coeff of [place] 14.2, Plt Count 148 L, MPV 10.4, Immature Gran % (Auto) 0.700, Neut % (Auto) 89.4 H, Lymph % (Auto) 5.2 L, [place] % (Auto) 4.1, Eos % (Auto) 0.4, Baso % (Auto) 0.2, Absolute Neuts (auto) 8.5 H, Absolute Lymphs (auto) 0.50 L, Nucleated RBC % 0, ESR 19, PT 13.6, INR 1.0, APTT 22.6 L, Sodium 132 L, Potassium 4.5, Chloride 100, Carbon Dioxide 24.5, Anion Gap 8, BUN 10, Creatinine 0.83, Estim Creat Clear Calc 104.64, Est GFR (MDRD) Non-Af 81, BUN/Creatinine Ratio 12.3, Glucose 263 H, Lactic Acid 2.4 H*, Calcium 9.3, Total Bilirubin 0.37, AST 24, ALT 26, Alkaline Phosphatase 175 H, C-React Prot Ext Range 11.00 H, Total Protein 7.1, Albumin 3.7, Globulin 3.4, Albumin/Globulin Ratio 1.1, Procalcitonin 0.10, Urine Color Straw, Urine Clarity Clear, Urine pH 6.0, Ur Specific [place] 1.015, Urine Protein Negative, Urine Glucose (UA) 1000 H, Urine Ketones Negative, Urine Occult Blood Negative, Urine Nitrite Negative, Urine Bilirubin Negative, Urine Urobilinogen Normal, Ur Leukocyte Esterase Negative, Urine RBC 0-5 SEEN, Urine WBC 0-5 SEEN, Ur Squamous Epith Cells 5-10 SEEN, Urine Bacteria RARE, Urine Mucus 0 SEEN 11/20/24 19:56: Lactic Acid 2.4 H* 11/20/24 20:36: POC Glucose 123 H 11/21/24 04:01: WBC 11.2 H, RBC 3.80 L, Hgb 11.2 L, Hct 34.4 L, MCV 90.5, MCH 29.5, MCHC 32.6, RDW Std Deviation 47.7 H, RDW Coeff of [place] 14.4, Plt Count 105 L, MPV 10.6, Immature Gran % (Auto) 0.700, Neut % (Auto) 86.6 H, Lymph % (Auto) 7.5 L, [place] % (Auto) 4.7, Eos % (Auto) 0.1, Baso % (Auto) 0.4, Absolute Neuts (auto) 9.7 H, Absolute Lymphs (auto) 0.84, Nucleated RBC % 0, ESR 26, Sodium 136, Potassium 4.0, Chloride 104, Carbon Dioxide 22.5, Anion Gap 10, BUN 13, Creatinine 0.87, Estim Creat Clear Calc 99.31, Est GFR (MDRD) Non-Af 78, BUN/Creatinine Ratio 15.4, Glucose 266 H, Lactic Acid 1.5, Calcium 8.4, C-React Prot Ext Range 115.00 H, Procalcitonin 8.24 H 11/21/24 06:53: POC Glucose 248 H Micro: Microbiology 11/20/24 14:33 Blood Culture (Wb) - Anticubital Left Blood Culture - Preliminary 11/20/24 15:03 Blood Culture (Wb) - Venous Blood Culture - Preliminary 11/20/24 14:33 Mucosa - Nose SARS-CoV-2, Influenza & RSV (PCR) - Final Radiography Diagnostic Testing: Radiology Impression Brain CT 11/20/24 14:29 IMPRESSION: No acute intracranial findings. Trace mucoperiosteal thickening, left maxillary sinus. Reading Location: [facility] Lumbar Spine CT 11/20/24 14:29 IMPRESSION: No acute osseous abnormalities involving the lumbar spine. Severe degenerative disc disease at L5-S1. Mild spondylosis. Reading Location: [facility] Chest X-Ray 11/20/24 15:10 IMPRESSION: No Acute Findings. Reading Location: [facility] Abdomen/Pelvis CT 11/20/24 16:54 IMPRESSION: No acute intra-abdominal process. Trace pericardial effusion. Reading Location: [id number] Physical Exam Narrative POCUS: indication shock. IVC non-collapsible on inspiration. PLAX/PSAX grossly showed hypokinesis. Const alert and no apparent distress HEENT head/scalp atraumatic and moist oral mucous membranes Resp normal respiratory effort, no retractions, no use of accessory muscles and clear to auscultation bilaterally Cardio regular rate, regular rhythm, S1 normal heart sound and S2 normal heart sound GI normal to inspection, nondistended, normoactive bowel sounds, soft to palpation, non-tender and non-distended Extremity normal to inspection Neuro Sensorium / Orientation: awake and alert Assessment & Plan Assessment/Plan (1) Shock: PLAN: undifferentiated at this time. possibilities include septic, hypovolemic. pt did not receive 30 cc/kg of IVF given h/o ischemic cardiomyopathy. Norepi gtt weaned off. POA. lactic acidosis resolved CT abd/pelvis negative. UA negative. CRP up from 11 to 115. Procal 8.24. COVID, Influenza, RSV negative. BCx pending (UCx ordered, but of low yield given unremarkable UA) Cefepime and vancomycin Hold carvedilol, sacubitril/valsartan. (2) Low back pain: PLAN: status post fall. Lumbar CT showed severe DDD at L5-S1. PLAN: Plan Chronic conditions: Ischemic cardiomyopathy: EF 40% hold carvedilol and sacubitril given shock obesity class III: complicates care and recovery DM2: Glargine and SSI. a1c 10.7 09/07/24 VTE prophylaxis: LMWH Charges/Coding Visit Charges Inpatient E&M: 73317 Subs Hosp L3
[2024-11-21] MEDS: Loratadine 10 MG Tablet PO (10:30)
[2024-11-21] MEDS: DULoxetine Hcl 60 MG Capsule PO ×2 (10:30→21:23)
[2024-11-21] MEDS: Insulin Glargine-YFGN 100 UNIT/ML Pen 20 UNIT SC ×2 (10:30→21:23)
[2024-11-21] MEDS: Atorvastatin Calcium 10 MG Tablet PO (10:31)
[2024-11-21] MEDS: Lidocaine 5% Patch 1 PATCH TOPICAL (10:31)
[2024-11-21] MEDS: Enoxaparin 40 MG/0.4 ML Syringe SC ×2 (10:31→21:24)
[2024-11-21] MEDS: Gabapentin 300 MG Capsule PO (10:32)
[2024-11-21] MEDS: Pantoprazole Sodium 40 MG Tablet PO ×2 (10:32→21:23)
--- NOTE | 2024-11-21 11:41 | PCM.PN.TICU ---
Objective Data Objective Data Vital Signs: Vital Signs Last response Temperature 36.3 C L 11/21/24 04:00 Temperature Source Temporal 11/21/24 04:00 Pulse Rate 86 11/21/24 07:45 Respiratory Rate 18 11/21/24 07:45 Respiratory Effort Normal, Non-Labored 11/20/24 14:18 Respiratory Pattern Normal 11/20/24 14:18 Blood Pressure 101/75 11/21/24 07:45 Blood Pressure Mean 83 11/21/24 07:45 Blood Pressure Source Monitor 11/21/24 06:00 Blood Pressure Position Semi-Fowlers 11/21/24 06:00 Blood Pressure Location Left Forearm 11/21/24 06:00 Pulse Ox 95 11/21/24 10:09 Oxygen Delivery Method Nasal Cannula 11/21/24 06:00 Oxygen Flow Rate (L/min) 3 11/21/24 10:09 I&O: I&O Last 24 Hours 11/20/24 11/20/24 11/21/24 11:59 23:59 11:59 Intake Total 4276.98 / 4281.68 995.30 / 995.30 Output Total 350 / 350 700 / 700 Balance 3926.98 / 3931.68 295.30 / 295.30 I&O: Total Stay 11/20/24 14:12 thru 11/21/24 10:22 Intake Total 5272.28 Output Total 1050 Balance 4222.28 Current Meds Ordered / Administered: Current meds ordered / Administered Generic Name Dose Route Start Last Admin Trade Name Freq PRN Reason Stop Dose Admin Acetaminophen 650 mg 11/20/24 21:00 11/21/24 10:41 Acetaminophen 325 Mg Tablet PO 650 mg Q6H PRN PRN Administration Pain 1-10 Or Fever >100.7 Albuterol Sulfate 2.5 mg 11/20/24 19:29 Albuterol 2.5 Mg/3 Ml Vial.Neb. INHALATION Q2H PRN PRN SOB &/OR WHEEZING Atorvastatin Calcium 10 mg 11/21/24 10:00 11/21/24 10:31 Atorvastatin Calcium 10 Mg Tablet PO 10 mg DAILY JAZMÍN Administration Duloxetine HCl 60 mg 11/20/24 22:00 11/21/24 10:30 Duloxetine Hcl 60 Mg Capsule PO 60 mg BID JAZMÍN Administration Enoxaparin Sodium 40 mg 11/20/24 22:00 11/21/24 10:31 Enoxaparin 40 Mg/0.4 Ml Syringe SC 40 mg BID JAZMÍN Administration Gabapentin 300 mg 11/21/24 10:00 11/21/24 10:32 Gabapentin 300 Mg Capsule PO 300 mg DAILY JAZMÍN Administration Glucagon 1 mg 11/20/24 19:29 Glucagon 1 Mg/Ml Syringe IM X1 PRN HYPOGLYCEMIA Protocol Dextrose 250 mls @ 0 mls/hr 11/20/24 19:29 Dextrose 10%-Water IV .Q0M PRN HYPOGLYCEMIA Protocol As Directed Vancomycin IV-PHARMACY TO DOSE 500 mls @ 250 mls/hr 11/20/24 19:29 1 each/ Sodium Chloride IV X1 PRN Rx to Dose Protocol Cefepime HCl 2 gm/ Sodium 100 mls @ 200 mls/hr 11/20/24 22:00 11/21/24 06:40 Chloride IV Infused Q8 JAZMÍN Infusion Sodium Chloride 250 mls @ 15 mls/hr 11/20/24 19:30 11/21/24 05:46 IV 15 mls/hr .[id number] PRN Administration Saline Flush Sodium Chloride 250 mls @ 15 mls/hr 11/20/24 19:30 IV .[id number] PRN Additional IVPB Infusion Norepinephrine Bitartrate 8 mg 250 mls @ 9.375 mls/hr 11/20/24 20:20 11/21/24 07:45 / Sodium Chloride CONT INF 0 mcg/min .[id number] JAZMÍN 0 mls/hr Titration Protocol 5 MCG/MIN Vancomycin HCl 1,750 mg/ 535 mls @ 250 mls/hr 11/21/24 04:30 11/21/24 06:40 Sodium Chloride IV Infused Q12H JAZMÍN Infusion Insulin Glargine 20 unit 11/20/24 22:00 11/21/24 10:30 Insulin Glargine-Yfgn 100 Unit/Ml Pen SC 20 unit BID JAZMÍN Administration Insulin Human Lispro 0 unit 11/20/24 22:00 11/21/24 11:20 Insulin Lispro 100 Unit/Ml Insuln.Pen SC 6 u ACHS JAZMÍN Administration Protocol Lidocaine 1 patch 11/21/24 10:00 11/21/24 10:31 Lidocaine 5% Patch TOPICAL 1 patch DAILY JAZMÍN Administration Protocol Loratadine 10 mg 11/21/24 10:00 11/21/24 10:30 Loratadine 10 Mg Tablet PO 10 mg DAILY JAZMÍN Administration Melatonin 10 mg 11/20/24 19:29 Melatonin 3 Mg Tablet PO QHS PRN PRN INSOMNIA Morphine Sulfate 2 - 4 mg 11/20/24 19:29 Morphine 2 Mg/Ml Syringe IV Q3H PRN PRN Pain Score 6-10 Ondansetron HCl 4 mg 11/20/24 19:29 Ondansetron 4 Mg/2 Ml Vial IV Q8H PRN PRN NAUSEA/VOMITING Oxycodone HCl 5 mg 11/20/24 19:29 Oxycodone 5 Mg Tablet PO Q4H PRN PRN Pain Score 4-10 Pantoprazole Sodium 40 mg 11/20/24 22:00 11/21/24 10:32 Pantoprazole Sodium 40 Mg Tablet PO 40 mg BID JAZMÍN Administration Pramipexole Dihydrochloride 0.25 mg 11/20/24 22:00 11/20/24 22:01 Pramipexole Di-Hcl 0.25 Mg Tablet PO 0.25 mg QHS JAZMÍN Administration Senna/Docusate Sodium 2 tablet 11/20/24 19:29 Senna/Docusate Sodium 1 Tablet PO BID PRN PRN Constipation Sodium Chloride 10 - 40 ml 11/20/24 19:30 11/21/24 04:24 0.9% Saline Lock 10 Ml Syringe IV 10 ml UD PRN Administration SALINE FLUSH Vancomycin Protocol 1 lab 11/22/24 03:00 Vancomycin Trough/Random Due [facility] 11/22/24 05:00 DAILY [facility] Lab / Micro Data 11/21/24 04:01 11/21/24 04:01 Labs: Laboratory Results - last 24 hr 11/20/24 14:33: WBC 9.6, RBC 4.29, Hgb 12.6, Hct 38.8, MCV 90.4, MCH 29.4, MCHC 32.5, RDW Std Deviation 46.5 H, RDW Coeff of Tatum 14.2, Plt Count 148 L, MPV 10.4, Immature Gran % (Auto) 0.700, Neut % (Auto) 89.4 H, Lymph % (Auto) 5.2 L, [place] % (Auto) 4.1, Eos % (Auto) 0.4, Baso % (Auto) 0.2, Absolute Neuts (auto) 8.5 H, Absolute Lymphs (auto) 0.50 L, Nucleated RBC % 0, ESR 19, PT 13.6, INR 1.0, APTT 22.6 L, Sodium 132 L, Potassium 4.5, Chloride 100, Carbon Dioxide 24.5, Anion Gap 8, BUN 10, Creatinine 0.83, Estim Creat Clear Calc 104.64, Est GFR (MDRD) Non-Af 81, BUN/Creatinine Ratio 12.3, Glucose 263 H, Lactic Acid 2.4 H*, Calcium 9.3, Total Bilirubin 0.37, AST 24, ALT 26, Alkaline Phosphatase 175 H, C-React Prot Ext Range 11.00 H, Total Protein 7.1, Albumin 3.7, Globulin 3.4, Albumin/Globulin Ratio 1.1, Procalcitonin 0.10, Urine Color Straw, Urine Clarity Clear, Urine pH 6.0, Ur Specific [place] 1.015, Urine Protein Negative, Urine Glucose (UA) 1000 H, Urine Ketones Negative, Urine Occult Blood Negative, Urine Nitrite Negative, Urine Bilirubin Negative, Urine Urobilinogen Normal, Ur Leukocyte Esterase Negative, Urine RBC 0-5 SEEN, Urine WBC 0-5 SEEN, Ur Squamous Epith Cells 5-10 SEEN, Urine Bacteria RARE, Urine Mucus 0 SEEN 11/20/24 19:56: Lactic Acid 2.4 H* 11/20/24 20:36: POC Glucose 123 H 11/21/24 04:01: WBC 11.2 H, RBC 3.80 L, Hgb 11.2 L, Hct 34.4 L, MCV 90.5, MCH 29.5, MCHC 32.6, RDW Std Deviation 47.7 H, RDW Coeff of [place]atum 14.4, Plt Count 105 L, MPV 10.6, Immature Gran % (Auto) 0.700, Neut % (Auto) 86.6 H, Lymph % (Auto) 7.5 L, [place] % (Auto) 4.7, Eos % (Auto) 0.1, Baso % (Auto) 0.4, Absolute Neuts (auto) 9.7 H, Absolute Lymphs (auto) 0.84, Nucleated RBC % 0, ESR 26, Sodium 136, Potassium 4.0, Chloride 104, Carbon Dioxide 22.5, Anion Gap 10, BUN 13, Creatinine 0.87, Estim Creat Clear Calc 99.31, Est GFR (MDRD) Non-Af 78, BUN/Creatinine Ratio 15.4, Glucose 266 H, Lactic Acid 1.5, Calcium 8.4, C-React Prot Ext Range 115.00 H, Procalcitonin 8.24 H 11/21/24 06:53: POC Glucose 248 H Micro: Microbiology 11/20/24 05:15 Mucosa - Nasopharyngeal Respiratory Panel (PCR) - Final 11/20/24 15:03 Blood Culture (Wb) - Venous Blood Culture - Preliminary 11/20/24 14:33 Blood Culture (Wb) - Anticubital Left Bacteria Detection (PCR) - Final Meth. resistant Staph. aureus 11/20/24 14:33 Blood Culture (Wb) - Anticubital Left Blood Culture - Preliminary 11/20/24 14:33 Mucosa - Nose SARS-CoV-2, Influenza & RSV (PCR) - Final Imaging Radiology Impression Brain CT 11/20/24 14:29 IMPRESSION: No acute intracranial findings. Trace mucoperiosteal thickening, left maxillary sinus. Reading Location: [facility] Lumbar Spine CT 11/20/24 14:29 IMPRESSION: No acute osseous abnormalities involving the lumbar spine. Severe degenerative disc disease at L5-S1. Mild spondylosis. Reading Location: [facility] Chest X-Ray 11/20/24 15:10 IMPRESSION: No Acute Findings. Reading Location: [facility] Abdomen/Pelvis CT 11/20/24 16:54 IMPRESSION: No acute intra-abdominal process. Trace pericardial effusion. Reading Location: [id number] Assessment and Plan . Assessment and plan: 1. Septic Shock: in setting of known HF. Procal elevated. Cultures:-. s/p sepsis bolus. Now off pressors. 2. MRSA BSI: source not clear. Await echo read for eval of valves and leads. May need tagged WBC study and MRI of L spine given new pain. Continue Vanc and cefepime. 3. Back pain: new. No hx. Noted degenerative changes in location. If persists, may need MRI 4. Hyponatremia: Hypovolemic. Improved with isotonic IVFs. 5. FEN: Oral diet 6. CHF: appears compensated. Hold diuretics as just came off pressors. 7. PX: toy Lal MD Critical Care Time: 50 minutes The entirety of this encounter was done via Telemedicine Physical Exam Narrative awake, NAD pupils: = o/p:clear, dental chaitanya on bottom left CV: RRR, no clear murmurs Chest: CTA B Abd :soft, NT, +bs Ext: no c/e/c, no areas of cellulitis Neuro: 5/5 strenght in upper extremities Subjective Subjective chart reviewed. Now off levophed. Cultures + for MRSA
[2024-11-21 12:06] LABS: Bedside Glucose 300 mg/dL (74-106)
--- NOTE | 2024-11-21 12:15 | CASEMGMT ---
RN?CM?CYBER WORKFORCE DEVELOPER AND MANAGER?CM?to room to meet with patient for initial transition planning/care coordination?assessment.?RN?CM?introduced self and role at [facility].? Pt voices understanding and consents to?assessment?at this time.? Pt sitting up in chair in room in no distress at this time.? Pt is A/O at this time and answers all questions appropriately.?? Care providers, pharmacy, and demographics verified/updated at this time. PCP: Dr Peñaloza Specialists: Dr Trujillo-cardiology, Dr Hernandez/Elaine Holland,BOILERMAKING SUPERVISOR-endocrinology Preferred Pharmacy: [facility] [place] Insurance: Clarence Mkpl, Nigel MIRZA Prescription Benefit:?Yes LNOK: Son, Jacob. Mother, Krista. Pt also has a daughter, but states she is currently in long term. Living Arrangements: Pt lives w/ex- and bn-plvlfw-rh-law in one-story home w/no steps to enter. Pt is independent w/ADL's & IADL's and helps to care for her lw-odetqa-jh-law. Transportation:?Pt states drives self and states no transportation concerns at this time.?Family will take her home @ [place]. DME: ?Has the following DME:?shower chair, functioning glucometer w/sufficient supplies. Pt states she is supposed to be checking BS 4 x/day, but has only been checking about 2 x/day. Pt states she also has a CGM, but states has not been able to get it to connect and plans to take it to rv mechanic to have them look at it. She does not have home O2. If O2 is needed @ [place], she chooses [employer] as DME co. Pt states no need for further DME at this time.? HHC/SNF: No hx of either. Pt denies need for HHC or OP therapy. Pt wishes to return home and states has no concerns with going home at time of discharge.??CM?to follow for home oxygen needs and any further discharge planning/needs.? Pt voices no further concerns/needs at this time.? Advised pt to ask for?CM?if any further questions/concerns/needs arise.? Voices understanding. PLAN:??Home Follow for any O2 needs @ [place]. Chris BSN?RN?CM
[2024-11-21 17:02] LABS: Bedside Glucose 314 mg/dL (74-106)
--- NOTE | 2024-11-21 17:34 | NURSING ---
Dr. Smith notified of this RN able to obtain one set of blood cultures. Attempted the second set but was unable to obtain. Lab attempted too.
--- NOTE | 2024-11-21 18:42 | NURSING ---
attempted to review patient's home medication list. Pt states that she cannot remember what she takes and she has no way of getting a list.
[2024-11-21] MEDS: oxyCODONE 5 MG Tablet PO (20:15)
[2024-11-21] MEDS: Pramipexole Di-HCl 0.25 MG Tablet PO (21:23)
[2024-11-21 21:49] LABS: Bedside Glucose 252 mg/dL (74-106)
[2024-11-22] VITALS (15 sets, daily range): BP systolic 99–154; BP diastolic 53–92; PULSE 58–93; RESP 14–19; TEMP 36.1–37.2; O2SAT 90–99; BMI 39.2
[2024-11-22] MEDS: Morphine 2 MG/ML Syringe IV (00:29)
[2024-11-22] MEDS: Ondansetron 4 MG/2 ML Vial IV ×2 (00:30→09:12)
[2024-11-22] MEDS: 0.9% Saline Lock 10 ML Syringe IV ×2 (00:30→09:13)
[2024-11-22 04:51] LABS: Absolute Lymphocyte Count 1.35 X10^3/uL (0.83-4.51); Absolute Neutrophil Count 4.2 X10^3/uL (2.0-7.7); Basophil# 0.03 X10^3/uL; Basophil% 0.5 % (0-1); Eosinophil# 0.04 X10^3/uL; Eosinophils% 0.6 % (0-5); Hematocrit 32.4 % (37-47); Hemoglobin 10.6 g/dL (12.0-15.0); Lymphocyte # 1.35 X10^3/ul (0.83-4.51); Lymphocyte % 21.6 % (19-41); Mean Corp Hgb Conc 32.7 g/dL (32-36); Mean Corpuscular Hgb 29.7 pg (27.0-32.0); Mean Corpuscular Volume 90.8 fL (81-99); Monocyte# 0.57 X10^3/uL; Monocyte% 9.1 % (0-10); NRBC Flagged by Analyzer 0 % (0-5); Neutrophil % 67.4 % (47-70); Platelet Count 102 K/mm3 (150-450); RBC Distribution Width CV 14.3 % (11.6-14.6); Red Blood Count 3.57 M/mm3 (4.2-5.4); White Blood Count 6.2 K/mm3 (4.4-11.0)
[2024-11-22 05:21] LABS: Anion Gap 8 (5-15); BUN 9 mg/dL (4-19); Calcium,Total 7.8 mg/dL (7.6-11.0); Carbon Dioxide 21.5 mmol/L (21.0-32.0); Chloride 108 mmol/L (98-108); EST Glomerular Filtration Rate 100 (>60); Estimated Creatinine Clearance 121.42 ml/min (50-250); Glucose 184 mg/dL (70-99); Potassium 3.6 mmol/L (3.3-5.1); Sodium Level 138 mmol/L (133-145); Vancomycin, Trough Level 10.4 ug/mL (5.0-15.0)
--- NOTE | 2024-11-22 05:39 | PCM.RX.CS ---
Consult Antibiotic Management Pharmacy has been consulted to manage selected antibiotic: Vancomycin Type of Intervention Type of Consult: Follow-up Suspected Infection Suspected Infection: Sepsis Labs Labs: Sodium 138 mmol/L (133-145) 11/22/24 04:40 Potassium 3.6 mmol/L (3.3-5.1) 11/22/24 04:40 Chloride 108 mmol/L (98-108) 11/22/24 04:40 Carbon Dioxide 21.5 mmol/L (21.0-32.0) 11/22/24 04:40 Anion Gap 8 (5-15) 11/22/24 04:40 BUN 9 mg/dL (4-19) 11/22/24 04:40 Creatinine 0.70 mg/dL (0.70-1.20) 11/22/24 04:40 Est GFR (MDRD) Non-Af 100 (>60) 11/22/24 04:40 BUN/Creatinine Ratio 13.0 RATIO (10-20) 11/22/24 04:40 Glucose 184 mg/dL (70-99) H 11/22/24 04:40 Vancomycin Trough 10.4 ug/mL (5.0-15.0) 11/22/24 04:40 Microbiology Microbiology: Microbiology 11/20/24 05:15 Mucosa - Nasopharyngeal Respiratory Panel (PCR) - Final 11/20/24 15:03 Blood Culture (Wb) - Venous Blood Culture - Preliminary 11/20/24 14:33 Blood Culture (Wb) - Anticubital Left Bacteria Detection (PCR) - Final Meth. resistant Staph. aureus 11/20/24 14:33 Blood Culture (Wb) - Anticubital Left Blood Culture - Preliminary 11/20/24 14:33 Mucosa - Nose SARS-CoV-2, Influenza & RSV (PCR) - Final Dosing Weight Weight used for dosin kg Estimated Creatinine Clearance Estimated Creatinine Clearance: 121 Goal Trough Goal Trough: 15-20 mcg/mL Pharmacy Plan for Drug Dosing Pharmacy Plan for Drug Dosing: Vancomycin trough level of 10.4, drawn 12.3hrs post-dose, was below the target range of 15-20. Will increase dose to 2000mg q12h, and will draw another trough prior to fourth dose of the new regimen. Pharmacy Service will continue to monitor and adjust dosing as required. Follow-Up Labs Follow-Up Labs: Trough: Vancomycin Date/Time Labs Ordered Labs to be done on [date and time ordered]: 11/23/24 @[id number]
[2024-11-22] MEDS: Vancomycin HCl 2,000 MG in 0.9% Normal Saline (500mL Bag) 500 ML 250 MG IV ×2 (05:40→18:29)
[2024-11-22] MEDS: Vancomycin Trough/Random Due 1 LAB MC (05:40)
[2024-11-22] MEDS: Cefepime HCl 2 GM in 0.9% Normal Saline (100mL MB+) 100 ML IV ×3 (05:52→21:36)
[2024-11-22] MEDS: Insulin Lispro 100 UNIT/ML INSULN.PEN SC ×3 (07:59→16:51)
[2024-11-22] MEDS: Insulin Glargine-YFGN 100 UNIT/ML Pen 20 UNIT SC (08:00)
--- NOTE | 2024-11-22 08:01 | PN.HOSP_ITS ---
Reason for Visit Reason for Visit: Diagnoses Sepsis, unspecified organism (11/20/24) Low back pain, unspecified (11/20/24) Shock, unspecified (11/20/24) Subjective Subjective Feels well. No new complaints. Still with back. Objective Data Objective Data Vital Signs: Vital Signs Temp Pulse Resp BP Pulse Ox O2 Del Method O2 Flow Rate 36.2 C L 77 15 135/71 H 97 Nasal Cannula 3 11/22/24 05:00 11/22/24 07:00 11/22/24 07:00 11/22/24 07:00 11/22/24 07:00 11/22/24 07:00 11/22/24 07:00 Oxygen Flow Rate (L/min) 3 Oxygen Delivery Method Nasal Cannula Weight: 120.202 kg Body Mass Index (BMI) 39.2 Intake & Output: Intake and Output for Last 24 Hours 11/20/24 11/21/24 11/22/24 23:59 23:59 23:59 Intake Total 4276.98 / 4281.68 2499.30 / 2749.30 890 / 890 Output Total 350 / 350 1600 / 2058 458 / 458 Balance 3926.98 / 3931.68 899.30 / 691.30 432 / 432 Lab / Micro Data 11/22/24 04:40 11/22/24 04:40 Labs: Laboratory Results - last 24 hr 11/21/24 11:19: POC Glucose 300 H 11/21/24 16:20: POC Glucose 314 H 11/21/24 21:27: POC Glucose 252 H 11/22/24 04:40: WBC 6.2, RBC 3.57 L, Hgb 10.6 L, Hct 32.4 L, MCV 90.8, MCH 29.7, MCHC 32.7, RDW Std Deviation 48.0 H, RDW Coeff of Tatum 14.3, Plt Count 102 L, MPV 10.0, Immature Gran % (Auto) 0.800, Neut % (Auto) 67.4, Lymph % (Auto) 21.6, [place] % (Auto) 9.1, Eos % (Auto) 0.6, Baso % (Auto) 0.5, Absolute Neuts (auto) 4.2, Absolute Lymphs (auto) 1.35, Nucleated RBC % 0, Sodium 138, Potassium 3.6, Chloride 108, Carbon Dioxide 21.5, Anion Gap 8, BUN 9, Creatinine 0.70, Estim Creat Clear Calc 121.42, Est GFR (MDRD) Non-Af 100, BUN/Creatinine Ratio 13.0, G lucose 184 H, Calcium 7.8, Vancomycin Trough 10.4 Micro: Microbiology 11/20/24 05:15 Mucosa - Nasopharyngeal Respiratory Panel (PCR) - Final 11/20/24 15:03 Blood Culture (Wb) - Venous Blood Culture - Preliminary 11/20/24 14:33 Blood Culture (Wb) - Anticubital Left Bacteria Detection (PCR) - Final Meth. resistant Staph. aureus 11/20/24 14:33 Blood Culture (Wb) - Anticubital Left Blood Culture - Preliminary 11/20/24 14:33 Mucosa - Nose SARS-CoV-2, Influenza & RSV (PCR) - Final Radiography Diagnostic Testing: Radiology Impression Echocardiogram 11/20/24 21:31 Interpretation Summary The study was technically difficult. Moderately reduced global LV systolic function. Estimated LVEF 40%. Stage I diastolic dysfunction. The left atrium is mildly enlarged. Trivial pericardial effusion. Ordering Physician: Jesus Varela Referring Physician: Lisseth Peñaloza Performed By: Nano Leung RDCS Physical Exam Narrative reproducible lower left parasternal back pain. Const alert and no apparent distress HEENT head/scalp atraumatic and moist oral mucous membranes Resp normal respiratory effort, no retractions, no use of accessory muscles and clear to auscultation bilaterally Cardio regular rate, regular rhythm, S1 normal heart sound and S2 normal heart sound GI normal to inspection, nondistended, normoactive bowel sounds, soft to palpation, non-tender and non-distended Neuro Sensorium / Orientation: awake and alert Assessment & Plan Assessment/Plan (1) Shock: PLAN: Likely septic given bacteremia. pt did not receive 30 cc/kg of IVF given h/o ischemic cardiomyopathy. Norepi gtt weaned off. POA. Cefepime and vancomycin (2) Bacteremia: PLAN: Unclear source. Blood culture 11/20/24 showing GPC in clusters. PCR + MRSA. Repeat blood cultures on 11/21 pending. TTE on 11/21 showed an EF 40%. Cards consult for KANDY. Continue cefepime and vanc for now. Likely the cefepime can be dropped, but will await on the final blood cultures from 11/20 before discontinuation. (3) Low back pain: PLAN: status post fall. Lumbar CT showed severe DDD at L5-S1. paraspinal musculature. Lidoderm patch. supportive mgmt. PLAN: Plan Chronic conditions: * Ischemic cardiomyopathy: EF 40% resume carvedilol and sacubitril (initially held given shock) * obesity class III: complicates care and recovery * DM2: Glargine and SSI. a1c 10.7 09/07/24 VTE prophylaxis: LMWH Transfer out of ICU. Charges/Coding Visit Charges Inpatient E&M: 53027 Subs Hosp L2
[2024-11-22 08:23] LABS: Bedside Glucose 177 mg/dL (74-106)
[2024-11-22] MEDS: Acetaminophen 325 MG Tablet 650 MG PO (09:24)
[2024-11-22] MEDS: Gabapentin 300 MG Capsule PO (09:24)
[2024-11-22] MEDS: Lidocaine 5% Patch 1 PATCH TOPICAL (09:25)
[2024-11-22] MEDS: Pantoprazole Sodium 40 MG Tablet PO ×2 (09:26→20:08)
[2024-11-22] MEDS: Enoxaparin 40 MG/0.4 ML Syringe SC ×2 (09:26→20:08)
[2024-11-22] MEDS: DULoxetine Hcl 60 MG Capsule PO ×2 (09:26→20:08)
[2024-11-22] MEDS: Atorvastatin Calcium 10 MG Tablet PO (09:26)
[2024-11-22] MEDS: Loratadine 10 MG Tablet PO (09:27)
--- NOTE | 2024-11-22 09:32 | PN.CC_ITS ---
Objective Data Objective Data Vital Signs: Vital Signs Last response 3 Temperature 36.2 C L 11/22/24 05:00 Temperature Source Temporal 11/22/24 05:00 Pulse Rate 77 11/22/24 07:00 Pulse Strength Normal (2+) 11/21/24 21:50 Respiratory Rate 15 11/22/24 07:00 Respiratory Effort Normal, Non-Labored 11/20/24 14:18 Respiratory Pattern Normal 11/20/24 14:18 Blood Pressure 135/71 H 11/22/24 07:00 Blood Pressure Mean 92 11/22/24 07:00 Blood Pressure Source Monitor 11/22/24 07:00 Blood Pressure Position Semi-Fowlers 11/22/24 07:00 Blood Pressure Location Left Forearm 11/22/24 07:00 Pulse Ox 97 11/22/24 07:00 Oxygen Delivery Method Nasal Cannula 11/22/24 07:00 Oxygen Flow Rate (L/min) 3 11/22/24 07:00 I&O: I&O Last 24 Hours 3 11/21/24 11/21/24 11/22/24 11:59 23:59 11:59 Intake Total 1175.30 / 2749.30 1324 / 2749.30 890 / 890 Output Total 700 / 2058 900 / 2058 458 / 458 Balance 475.30 / 691.30 424 / 691.30 432 / 432 I&O: Total Stay 3 11/20/24 14:12 thru 11/22/24 07:52 Intake Total 7666.28 Output Total 2408 Balance 5258.28 Current Meds Ordered / Administered: Current meds ordered / Administered 3 Generic Name Dose Route Start Last Admin Trade Name Freq PRN Reason Stop Dose Admin Acetaminophen 650 mg 11/20/24 21:00 11/22/24 09:24 Acetaminophen 325 Mg Tablet PO 650 mg Q6H PRN PRN Administration Pain 1-10 Or Fever >100.7 Albuterol Sulfate 2.5 mg 11/20/24 19:29 Albuterol 2.5 Mg/3 Ml Vial.Neb. INHALATION Q2H PRN PRN SOB &/OR WHEEZING Atorvastatin Calcium 10 mg 11/21/24 10:00 11/22/24 09:26 Atorvastatin Calcium 10 Mg Tablet PO 10 mg DAILY JAZMÍN Administration Duloxetine HCl 60 mg 11/20/24 22:00 11/22/24 09:26 Duloxetine Hcl 60 Mg Capsule PO 60 mg BID JAZMÍN Administration Enoxaparin Sodium 40 mg 11/20/24 22:00 11/22/24 09:26 Enoxaparin 40 Mg/0.4 Ml Syringe SC 40 mg BID JAZMÍN Administration Gabapentin 300 mg 11/21/24 10:00 11/22/24 09:24 Gabapentin 300 Mg Capsule PO 300 mg DAILY JAZMÍN Administration Glucagon 1 mg 11/20/24 19:29 Glucagon 1 Mg/Ml Syringe IM X1 PRN HYPOGLYCEMIA Protocol Dextrose 250 mls @ 0 mls/hr 11/20/24 19:29 Dextrose 10%-Water IV .Q0M PRN HYPOGLYCEMIA Protocol As Directed Vancomycin IV-PHARMACY TO DOSE 500 mls @ 250 mls/hr 11/20/24 19:29 1 each/ Sodium Chloride IV X1 PRN Rx to Dose Protocol Cefepime HCl 2 gm/ Sodium 100 mls @ 200 mls/hr 11/20/24 22:00 11/22/24 06:37 Chloride IV Infused Q8 JAZMÍN Infusion Sodium Chloride 250 mls @ 15 mls/hr 11/20/24 19:30 11/21/24 21:02 IV 0 mls/hr .[id number] PRN Infusion Saline Flush Sodium Chloride 250 mls @ 15 mls/hr 11/20/24 19:30 IV .[id number] PRN Additional IVPB Infusion Norepinephrine Bitartrate 8 mg 250 mls @ 9.375 mls/hr 11/20/24 20:20 11/22/24 04:28 / Sodium Chloride CONT INF Not Given .[id number] JAZMÍN Protocol 5 MCG/MIN Vancomycin HCl 2,000 mg/ 540 mls @ 250 mls/hr 11/22/24 06:00 11/22/24 07:52 Sodium Chloride IV Infused Q12H JAZMÍN Infusion Insulin Glargine 20 unit 11/20/24 22:00 11/22/24 08:00 Insulin Glargine-Yfgn 100 Unit/Ml Pen SC 20 unit BID JAZMÍN Administration Insulin Human Lispro 0 unit 11/20/24 22:00 11/22/24 07:59 Insulin Lispro 100 Unit/Ml Insuln.Pen SC 2 u ACHS JAZMÍN Administration Protocol Lidocaine 1 patch 11/21/24 10:00 11/22/24 09:25 Lidocaine 5% Patch TOPICAL 1 patch DAILY JAZMÍN Administration Protocol Loratadine 10 mg 11/21/24 10:00 11/22/24 09:27 Loratadine 10 Mg Tablet PO 10 mg DAILY JAZMÍN Administration Melatonin 10 mg 11/20/24 19:29 Melatonin 3 Mg Tablet PO QHS PRN PRN INSOMNIA Morphine Sulfate 2 - 4 mg 11/20/24 19:29 11/22/24 00:29 Morphine 2 Mg/Ml Syringe IV 2 mg Q3H PRN PRN Administration Pain Score 6-10 Ondansetron HCl 4 mg 11/20/24 19:29 11/22/24 09:12 Ondansetron 4 Mg/2 Ml Vial IV 4 mg Q8H PRN PRN Administration NAUSEA/VOMITING Oxycodone HCl 5 mg 11/20/24 19:29 11/21/24 20:15 Oxycodone 5 Mg Tablet PO 5 mg Q4H PRN PRN Administration Pain Score 4-10 Pantoprazole Sodium 40 mg 11/20/24 22:00 11/22/24 09:26 Pantoprazole Sodium 40 Mg Tablet PO 40 mg BID [facility] Administration Pramipexole Dihydrochloride 0.25 mg 11/20/24 22:00 11/21/24 21:23 Pramipexole Di-Hcl 0.25 Mg Tablet PO 0.25 mg QHS [facility] Administration Senna/Docusate Sodium 2 tablet 11/20/24 19:29 Senna/Docusate Sodium 1 Tablet PO BID PRN PRN Constipation Sodium Chloride 10 - 40 ml 11/20/24 19:30 11/22/24 09:13 0.9% Saline Lock 10 Ml Syringe IV 10 ml UD PRN Administration SALINE FLUSH Vancomycin Protocol 1 lab 11/23/24 16:30 Vancomycin Trough/Random Due MC 11/23/24 18:30 DAILY [facility] Lab / Micro Data 11/22/24 04:40 11/22/24 04:40 Labs: Laboratory Results - last 24 hr 11/21/24 11:19: POC Glucose 300 H 11/21/24 16:20: POC Glucose 314 H 11/21/24 21:27: POC Glucose 252 H 11/22/24 04:40: WBC 6.2, RBC 3.57 L, Hgb 10.6 L, Hct 32.4 L, MCV 90.8, MCH 29.7, MCHC 32.7, RDW Std Deviation 48.0 H, RDW Coeff of [place]atum 14.3, Plt Count 102 L, MPV 10.0, Immature Gran % (Auto) 0.800, Neut % (Auto) 67.4, Lymph % (Auto) 21.6, [place] % (Auto) 9.1, Eos % (Auto) 0.6, Baso % (Auto) 0.5, Absolute Neuts (auto) 4.2, Absolute Lymphs (auto) 1.35, Nucleated RBC % 0, Sodium 138, Potassium 3.6, Chloride 108, Carbon Dioxide 21.5, Anion Gap 8, BUN 9, Creatinine 0.70, Estim Creat Clear Calc 121.42, Est GFR (MDRD) Non-Af 100, BUN/Creatinine Ratio 13.0, G lucose 184 H, Calcium 7.8, Vancomycin Trough 10.4 11/22/24 07:55: POC Glucose 177 H Micro: Microbiology 11/20/24 14:33 Urine Catheter - Catheter Urine Culture - Final Culture exhibits no growth. 11/20/24 05:15 Mucosa - Nasopharyngeal Respiratory Panel (PCR) - Final 11/20/24 15:03 Blood Culture (Wb) - Venous Blood Culture - Preliminary 11/20/24 14:33 Blood Culture (Wb) - Anticubital Left Bacteria Detection (PCR) - Final Meth. resistant Staph. aureus 11/20/24 14:33 Blood Culture (Wb) - Anticubital Left Blood Culture - Preliminary Imaging Radiology Impression Echocardiogram 11/20/24 21:31 Interpretation Summary The study was technically difficult. Moderately reduced global LV systolic function. Estimated LVEF 40%. Stage I diastolic dysfunction. The left atrium is mildly enlarged. Trivial pericardial effusion. Ordering Physician: Jesus Varela Referring Physician: Lisseth Peñaloza Performed By: Nano Leung RDCS Assessment and Plan . Assessment and plan: 1. Septic Shock: in setting of known HF. Procal elevated. Cultures:+. s/p sepsis bolus. Now off pressors > 24 hours. 2. MRSA BSI: source not clear. Echo read w/ no mention of vegetations on valves and leads. May need tagged WBC study. Continue Vanc and cefepime. 3. Back pain: new. s/p fall. No hx prior. Noted degenerative changes in location. If persists, may need MRI 4. Hyponatremia: Hypovolemic. Improved with isotonic IVFs. 5. FEN: Oral diet 6. CHF: appears compensated. Hold diuretics as just came off pressors. Can consider re-starting soon. 7. Hypoxemic Resp Failure: On 2L. Satting well. Wean FIO2 as tolerated. 8. PX: lovenox Pt stable. Will sign off. Pedro Luis Lal MD The entirety of this encounter was done via Telemedicine Physical Exam Narrative awake, NAD pupils: = o/p:clear CV: RRR, no clear murmurs Chest: CTA B Abd :soft, NT, +bs Ext: no c/e/c, no areas of cellulitis Neuro: 5/5 strength in upper extremities Subjective Subjective no events. Did not sleep well 2/2 back pain
[2024-11-22] MEDS: Insulin Lispro 100 UNIT/ML INSULN.PEN 30 UNIT SC ×2 (11:32→16:52)
[2024-11-22] MEDS: Insulin Glargine-YFGN 100 UNIT/ML Pen 40 UNIT SC (11:33)
[2024-11-22] MEDS: SACUBITRIL/VALSARTAN 24/26 MG TABLET 1 EACH PO ×2 (11:34→20:08)
[2024-11-22 12:06] LABS: Bedside Glucose 198 mg/dL (74-106)
--- NOTE | 2024-11-22 12:36 | PCM.CONS.C ---
Assessment & Plan Assessment/Plan (1) MRSA bacteremia: PLAN: Patient blood culture is reported as positive for MRSA. No source identified so far. She has a WWE WRESTLER-D device. I would recommend checking a KANDY to exclude any endocarditis. (2) History of placement of internal cardiac defibrillator: PLAN: See #1 above. (3) Nonischemic cardiomyopathy: PLAN: Patient's Entresto and carvedilol were discontinued in view of her septic shock. She has since recovered. Recommend restarting both. (4) Acute febrile illness: PLAN: See #1 above. On antibiotics. (5) Diabetes mellitus: PLAN: As per internal medicine. HPI Consult Data Date of Consult: 11/22/24 HPI Narrative Reason for Consultation: Cardiomyopathy HPI Narrative: This lady has past medical history significant for nonischemic cardiomyopathy status post WWE WRESTLER?D, diabetes mellitus, morbid obesity and hypertension. The patient presented to the hospital with complaints of lower back pain. According to her, she fell and hurt her back few days ago. Patient was noted to be febrile in the emergency room. Lactic acid was elevated. Admitted with a diagnosis of sepsis. During the course of her hospitalization, she went into septic shock as well and required vasopressor support. Started on antibiotics. Her hemodynamics have since improved and she is off vasopressor support presently. Her LVEF on 2D echocardiogram was noted to be 40% which is the same as reported in May of last year. She has been growing MRSA in her blood cultures. Patient denies any chest pains. Denies any shortness of breath. Denies orthopnea or PND. No ankle edema. [facility] Medical History Cardiomyopathy, ischemic Vitamin D deficiency Neuropathy History of placement of internal cardiac defibrillator (09/03/13) GERD (gastroesophageal reflux disease) Anxiety Obesity Type 2 diabetes mellitus with diabetic neuropathy, unspecified Chest pain Heart disease Headache Arthritis Seasonal allergies Nonischemic dilated cardiomyopathy Gout Pulmonary HTN Hyperlipidemia RLS (restless legs syndrome) HTN (hypertension) Home Medications ?Medication ?Instructions ?Recorded ?Last Taken ?Type docusate sodium 100 mg capsule 100 mg PO BID PRN 05/06/24 Unknown History (Colace) CareFine Pen Needle 30 gauge x #120 ea 05/29/24 Unknown Rx 16 (pen needle, diabetic) insulin syringe-needle U-100 0.5 #90 ea 05/29/24 Unknown Rx mL 31 gauge x 5/16 (BD Insulin Syringe Ultra-Fine) sacubitril 24 mg-valsartan 26 mg 1 tab PO BID #60 tabs 06/03/24 Unknown Rx tablet (Entresto) blood sugar diagnostic (OneTouch #100 ea 10/15/24 Unknown Rx Verio test strips) 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 meter (OneTouch #1 ea 10/15/24 Unknown Rx Verio Reflect Meter) 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 meter,continuous #1 ea 10/15/24 Unknown Rx (FreeStyle [place] 3 [place]) 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 sensor (FreeStyle #2 ea 10/15/24 Unknown Rx Lance 3 Plus Sensor device) dulaglutide 1.5 mg/0.5 mL 1.5 mg (0.5 mL) subcut QWEEK #2 mL 10/15/24 Unknown Rx subcutaneous pen injector (Trulicity) insulin lispro 100 unit/mL 30 unit subcut TID 10/19/24 Unknown History subcutaneous pen insulin glargine 100 unit/mL (3 40 unit (0.4 mL) subcut BID #30 mL 10/21/24 Unknown Rx mL) subcutaneous pen (Lantus Solostar U-100 Insulin) atorvastatin 10 mg tablet (Lipitor) 10 mg PO DAILY cholesterol #90 tabs 10/22/24 Unknown Rx carvedilol 25 mg tablet 25 mg PO Q12H #180 tabs 10/22/24 Unknown Rx cetirizine 10 mg capsule 10 mg PO DAILY #90 caps 10/22/24 Unknown Rx cholecalciferol (vitamin D3) 1,250 1,250 mcg PO QWEEK #12 caps 10/22/24 Unknown Rx mcg (50,000 unit) capsule duloxetine 60 mg capsule,delayed 60 mg PO BID #180 caps 10/22/24 Unknown Rx release magnesium oxide 400 mg (241.3 mg 400 mg PO BID #180 tabs 10/22/24 Unknown Rx magnesium) tablet gabapentin 300 mg capsule 300 mg PO DAILY #28 caps 10/29/24 Unknown Rx spironolactone 25 mg tablet 25 mg PO DAILY #30 tabs 11/04/24 Unknown Rx pantoprazole 40 mg tablet,delayed 40 mg PO BID #180 tabs 11/19/24 Unknown Rx release (Protonix) ropinirole 0.5 mg tablet 0.5 mg PO QHS #90 tabs 11/19/24 Unknown Rx Allergy/AdvReac Type Severity Reaction Status Date / Time simvastatin Allergy Severe Myalgia Verified 11/20/24 14:18 Latex, Natural Rubber Allergy Unknown Rash Verified 11/20/24 14:18 metformin Allergy Other Verified 11/20/24 14:18 adhesive tape AdvReac Severe Rash Verified 11/20/24 14:18 Family History Father Heart disease Myocardial infarction CAD (coronary artery disease) Mother CAD (coronary artery disease) Heart disease Cancer breast Grandmother Colon cancer Daughter Breast cancer Surgical History History of left heart catheterization Hx of appendectomy H/O colectomy History of hysteroscopy Social History household members: family and other details: ex mother in law , ex housing: house current occupational status: disabled 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 Heart sounds 1 and 2 noted. No murmurs or rubs. Chest clear to auscultation bilaterally. Alert oriented x 3. No ankle edema. Risk Stratification Risk Stratification Applicable: No Objective Data Vital Signs: Vital Signs Temp Pulse Resp BP Pulse Ox O2 Del Method O2 Flow Rate 97.7 F L 90 19 H 134/92 H 96 Room Air 2 11/22/24 11:00 11/22/24 11:00 11/22/24 11:00 11/22/24 11:00 11/22/24 11:00 11/22/24 11:00 11/22/24 10:00 Oxygen Flow Rate (L/min) 2 Oxygen Delivery Method Room Air Weight: 265 lb 0.001 oz Body Mass Index (BMI) 39.2 Intake & Output: Intake and Output for Last 24 Hours 11/20/24 11/21/24 11/22/24 23:59 23:59 23:59 Intake Total 4276.98 / 4281.68 2499.30 / 2749.30 890 / 890 Output Total 350 / 350 1600 / 2058 458 / 458 Balance 3926.98 / 3931.68 899.30 / 691.30 432 / 432 Lab / Micro Data 11/22/24 04:40 11/22/24 04:40 Labs: Laboratory Results - last 24 hr 11/21/24 16:20: POC Glucose 314 H 11/21/24 21:27: POC Glucose 252 H 11/22/24 04:40: WBC 6.2, RBC 3.57 L, Hgb 10.6 L, Hct 32.4 L, MCV 90.8, MCH 29.7, MCHC 32.7, RDW Std Deviation 48.0 H, RDW Coeff of [place] 14.3, Plt Count 102 L, MPV 10.0, Immature Gran % (Auto) 0.800, Neut % (Auto) 67.4, Lymph % (Auto) 21.6, [place] % (Auto) 9.1, Eos % (Auto) 0.6, Baso % (Auto) 0.5, Absolute Neuts (auto) 4.2, Absolute Lymphs (auto) 1.35, Nucleated RBC % 0, Sodium 138, Potassium 3.6, Chloride 108, Carbon Dioxide 21.5, Anion Gap 8, BUN 9, Creatinine 0.70, Estim Creat Clear Calc 121.42, Est GFR (MDRD) Non-Af 100, BUN/Creatinine Ratio 13.0, Glucose 184 H, Calcium 7.8, Vancomycin Trough 10.4 11/22/24 07:55: POC Glucose 177 H 11/22/24 11:19: POC Glucose 198 H Micro: Microbiology 11/20/24 14:33 Blood Culture (Wb) - Anticubital Left Bacteria Detection (PCR) - Final Meth. resistant Staph. aureus 11/20/24 14:33 Blood Culture (Wb) - Anticubital Left Blood Culture - Preliminary Staphylococcus aureus 11/20/24 15:03 Blood Culture (Wb) - Venous Blood Culture - Final Staphylococcus aureus 11/20/24 14:33 Urine Catheter - Catheter Urine Culture - Final Culture exhibits no growth. 11/20/24 05:15 Mucosa - Nasopharyngeal Respiratory Panel (PCR) - Final Cardiology Labs/Tests 11/22/24 04:40: WBC 6.2, RBC 3.57 L, Hgb 10.6 L, Hct 32.4 L, MCV 90.8, MCH 29.7, MCHC 32.7, Plt Count 102 L, MPV 10.0, Immature Gran % (Auto) 0.800, Neut % (Auto) 67.4, Lymph % (Auto) 21.6, [place] % (Auto) 9.1, Eos % (Auto) 0.6, Baso % (Auto) 0.5, Absolute Neuts (auto) 4.2, Nucleated RBC % 0, Sodium 138, Potassium 3.6, Chloride 108, Carbon Dioxide 21.5, Anion Gap 8, BUN 9, Creatinine 0.70, Est GFR (MDRD) Non-Af 100, BUN/Creatinine Ratio 13.0, Glucose 184 H, Calcium 7.8 Rhythm: EKG: ECHO: Stress Test: Cardiac Cath: PCI: CT Surgery: Holter monitor: EPS: PPM: CXR: Chest CT Scan: Radiography Diagnostic Testing: Radiology Impression Echocardiogram 11/20/24 21:31 Interpretation Summary The study was technically difficult. Moderately reduced global LV systolic function. Estimated LVEF 40%. Stage I diastolic dysfunction. The left atrium is mildly enlarged. Trivial pericardial effusion. Ordering Physician: Jesus Varela Referring Physician: Lisseth Peñaloza Performed By: Nano Leung, JEANINE
[2024-11-22] MEDS: 0.9% Normal Saline (250mL Bag) 250 ML 15 ML IV (13:56)
[2024-11-22] MEDS: Carvedilol 25 MG Tablet PO (16:51)
[2024-11-22 17:25] LABS: Bedside Glucose 179 mg/dL (74-106)
[2024-11-22] MEDS: Pramipexole Di-HCl 0.25 MG Tablet PO (20:08)
[2024-11-22 22:00] LABS: Bedside Glucose 85 mg/dL (74-106)
[2024-11-23] MEDS: Morphine 2 MG/ML Syringe IV (02:46)
[2024-11-23] MEDS: 0.9% Saline Lock 10 ML Syringe IV (02:47)
[2024-11-23 03:20] VITALS: BMI 39.6
[2024-11-23 04:00] VITALS: BP 117/63; PULSE 66; RESP 15; TEMP 36; O2SAT 96
[2024-11-23 04:55] LABS: Absolute Lymphocyte Count 1.32 X10^3/uL (0.83-4.51); Absolute Neutrophil Count 3.8 X10^3/uL (2.0-7.7); Basophil# 0.03 X10^3/uL; Basophil% 0.5 % (0-1); Eosinophil# 0.14 X10^3/uL; Eosinophils% 2.4 % (0-5); Hematocrit 32.7 % (37-47); Hemoglobin 10.4 g/dL (12.0-15.0); Lymphocyte # 1.32 X10^3/ul (0.83-4.51); Lymphocyte % 22.9 % (19-41); Mean Corp Hgb Conc 31.8 g/dL (32-36); Mean Corpuscular Volume 91.1 fL (81-99); Mean Platelet Vol. 10.3 fl (6.2-12.0); Monocyte# 0.51 X10^3/uL; Monocyte% 8.8 % (0-10); NRBC Flagged by Analyzer 0 % (0-5); Neutrophil # 3.75 X10^3/uL (2.7-7.7); Neutrophil % 65.1 % (47-70); Platelet Count 105 K/mm3 (150-450); RBC Distribution Width CV 14.6 % (11.6-14.6); RBC Distribution Width SD 48.3 fl (35.1-43.9); Red Blood Count 3.59 M/mm3 (4.2-5.4); White Blood Count 5.8 K/mm3 (4.4-11.0)
[2024-11-23] MEDS: Cefepime HCl 2 GM in 0.9% Normal Saline (100mL MB+) 100 ML IV (05:07)
[2024-11-23 05:30] LABS: Anion Gap 8 (5-15); BUN 8 mg/dL (4-19); BUN/Creat Ratio 12.5 RATIO (10-20); Calcium,Total 8.9 mg/dL (7.6-11.0); Carbon Dioxide 23.3 mmol/L (21.0-32.0); Chloride 108 mmol/L (98-108); Creatinine, Serum 0.63 mg/dL (0.70-1.20); EST Glomerular Filtration Rate 103 (>60); Estimated Creatinine Clearance 135.59 ml/min (50-250); Glucose 79 mg/dL (70-99); Potassium 3.8 mmol/L (3.3-5.1); Sodium Level 140 mmol/L (133-145)
[2024-11-23] MEDS: Vancomycin HCl 2,000 MG in 0.9% Normal Saline (500mL Bag) 500 ML 250 MG IV ×2 (05:43→19:08)
--- NOTE | 2024-11-23 07:12 | ECHOTEE_ITS ---
Reason For Study Reason For Study: Endocarditis Medication KANDY probe 6VT-D (SN [id number]) passed without difficulty. No complications were noted. Cetacaine Topical [place] given X3 orally. Versed 1 mg given slow IVP. Fentanyl 50 mcg given slow IVP. Performed a rapid injection of agitated mix of 9 cc saline and 1cc air to assess for atrial septal defect. Left Ventricle Normal LV size. Left ventricular systolic function is normal. The left ventricular ejection fraction is 45 %. No regional wall motion abnormalities noted. Right Ventricle Normal RV size. ICD or pacer leads identified within the right ventricle. Normal systolic function. Atria Normal atrial septum. Bubble contrast study negative for right to left interatrial shunt. Pacer leads seen with no vegetations seen. Normal left atrium. Mitral Valve Normal mitral valve. Mild (1+) eccentric mitral valve insufficiency. Tricuspid Valve Normal tricuspid valve. Aortic Valve Trisinus/trileaflet aortic valve. Pulmonic Valve Normal pulmonic valve. Vessels Normal aortic root. Normal arch. The pulmonary artery is normal size. Pericardium No pericardial effusion. ECHO/Echo Transesophageal (KANDY) Interpretation Summary Normal LV size. Left ventricular systolic function is normal. The left ventricular ejection fraction is 45 %. Pacer leads seen with no vegetations seen No pericardial effusion. Ordering Physician: Radha Dumont Referring Physician: Lisseth Peñaloza Performed By: Cassy Becker, RDCS, RVT
--- NOTE | 2024-11-23 07:26 | PN.HOSP_ITS ---
Reason for Visit Reason for Visit: Diagnoses Sepsis, unspecified organism (11/20/24) Methicillin resistant Staphylococcus aureus infection as the cause of diseases classified elsewhere (11/20/24) Type 2 diabetes mellitus without complications (11/20/24) Other cardiomyopathies (11/20/24) Low back pain, unspecified (11/20/24) Fever, unspecified (11/20/24) Shock, unspecified (11/20/24) Bacteremia (11/20/24) Presence of automatic (implantable) cardiac defibrillator (11/20/24) Subjective Subjective Had headache last night. Objective Data Objective Data Vital Signs: Vital Signs Temp Pulse Resp BP Pulse Ox O2 Del Method O2 Flow Rate 36.0 C L 66 15 117/63 96 Room Air 2 11/23/24 04:00 11/23/24 04:00 11/23/24 04:00 11/23/24 04:00 11/23/24 04:00 11/23/24 04:00 11/23/24 01:44 Oxygen Flow Rate (L/min) 2 Oxygen Delivery Method Room Air Weight: 121.3 kg Body Mass Index (BMI) 39.6 Intake & Output: Intake and Output for Last 24 Hours 11/21/24 11/22/24 11/23/24 23:59 23:59 23:59 Intake Total 2499.30 / 2749.30 1779.00 / 1779.00 100 / 100 Output Total 1600 / 8 458 / 458 Balance 899.30 / 691.30 1321.00 / 1321.00 100 / 100 Lab / Micro Data 11/23/24 04:32 11/23/24 04:32 Labs: Laboratory Results - last 24 hr 11/22/24 07:55: POC Glucose 177 H 11/22/24 11:19: POC Glucose 198 H 11/22/24 16:48: POC Glucose 179 H 11/22/24 21:35: POC Glucose 85 11/23/24 04:32: WBC 5.8, RBC 3.59 L, Hgb 10.4 L, Hct 32.7 L, MCV 91.1, MCH 29.0, MCHC 31.8 L, RDW Std Deviation 48.3 H, RDW Coeff of [place]atum 14.6, Plt Count 105 L, MPV 10.3, Immature Gran % (Auto) 0.300, Neut % (Auto) 65.1, Lymph % (Auto) 22.9, [place] % (Auto) 8.8, Eos % (Auto) 2.4, Baso % (Auto) 0.5, Absolute Neuts (auto) 3.8, Absolute Lymphs (auto) 1.32, Nucleated RBC % 0, Sodium 140, Potassium 3.8, Chloride 108, Carbon Dioxide 23.3, Anion Gap 8, BUN 8, Creatinine 0.63 L, Estim Creat Clear Calc 135.59, Est GFR (MDRD) Non-Af 103, BUN/Creatinine Ratio 12.5, Glucose 79, Calcium 8.9 Micro: Microbiology 11/20/24 14:33 Blood Culture (Wb) - Anticubital Left Bacteria Detection (PCR) - Final Meth. resistant Staph. aureus 11/20/24 14:33 Blood Culture (Wb) - Anticubital Left Blood Culture - Preliminary Staphylococcus aureus 11/20/24 15:03 Blood Culture (Wb) - Venous Blood Culture - Final Staphylococcus aureus 11/20/24 14:33 Urine Catheter - Catheter Urine Culture - Final Culture exhibits no growth. 11/20/24 05:15 Mucosa - Nasopharyngeal Respiratory Panel (PCR) - Final 11/20/24 14:33 Mucosa - Nose SARS-CoV-2, Influenza & RSV (PCR) - Final Physical Exam Const alert and no apparent distress HEENT head/scalp atraumatic and moist oral mucous membranes Resp normal respiratory effort, no retractions, no use of accessory muscles and clear to auscultation bilaterally Cardio regular rate, regular rhythm, S1 normal heart sound and S2 normal heart sound GI normal to inspection, nondistended, normoactive bowel sounds, soft to palpation and non-tender Assessment & Plan Assessment/Plan (1) Shock: PLAN: Likely septic given bacteremia. pt did not receive 30 cc/kg of IVF given h/o ischemic cardiomyopathy. Norepi gtt weaned off. POA. Cefepime and vancomycin (2) Bacteremia: PLAN: Unclear source. Blood culture 11/20/24 showing GPC in clusters. PCR + MRSA. Repeat blood cultures on 11/21 pending. TTE on 11/21 showed an EF 40%. Cards consult for KANDY. Blood cultures 11/21 pending Continue cefepime and vanc for now. Likely the cefepime can be dropped, but will await on the final blood cultures from 11/20 before discontinuation. (3) Low back pain: PLAN: status post fall. Lumbar CT showed severe DDD at L5-S1. paraspinal musculature. Lidoderm patch. supportive mgmt. PLAN: Plan Chronic conditions: * Ischemic cardiomyopathy: EF 40% resume carvedilol and sacubitril (initially held given shock) * obesity class III: complicates care and recovery * DM2: Glargine and SSI. a1c 10.7 09/07/24 VTE prophylaxis: LMWH Charges/Coding Visit Charges Inpatient E&M: 79680 Subs Hosp L2
--- NOTE | 2024-11-23 07:46 | PCM.PN.CARD ---
Subjective Subjective Patient resting comfortable in the recumbent position in bed. She denies any fevers or chills in the last 24 hours. She has been up in the room without assistance. She does not complain of some occasional lightheadedness with change of position. Objective Data Vital Signs: Vital Signs Temp Pulse Resp BP Pulse Ox O2 Del Method O2 Flow Rate 96.8 F L 66 15 117/63 96 Room Air 2 11/23/24 04:00 11/23/24 04:00 11/23/24 04:00 11/23/24 04:00 11/23/24 04:00 11/23/24 04:00 11/23/24 01:44 Oxygen Flow Rate (L/min) 2 Oxygen Delivery Method Room Air Weight: 267 lb 6.731 oz Body Mass Index (BMI) 39.6 Intake & Output: Intake and Output for Last 24 Hours 11/21/24 11/22/24 11/23/24 23:59 23:59 23:59 Intake Total 2499.30 / 2749.30 1779.00 / 1779.00 100 / 100 Output Total 1600 / 8 458 / 458 Balance 899.30 / 691.30 1321.00 / 1321.00 100 / 100 Lab / Micro Data Attestation: I reviewed the patient's lab results. 11/23/24 04:32 11/23/24 04:32 Labs: Laboratory Results - last 24 hr 11/22/24 07:55: POC Glucose 177 H 11/22/24 11:19: POC Glucose 198 H 11/22/24 16:48: POC Glucose 179 H 11/22/24 21:35: POC Glucose 85 11/23/24 04:32: WBC 5.8, RBC 3.59 L, Hgb 10.4 L, Hct 32.7 L, MCV 91.1, MCH 29.0, MCHC 31.8 L, RDW Std Deviation 48.3 H, RDW Coeff of [place]atum 14.6, Plt Count 105 L, MPV 10.3, Immature Gran % (Auto) 0.300, Neut % (Auto) 65.1, Lymph % (Auto) 22.9, [place] % (Auto) 8.8, Eos % (Auto) 2.4, Baso % (Auto) 0.5, Absolute Neuts (auto) 3.8, Absolute Lymphs (auto) 1.32, Nucleated RBC % 0, Sodium 140, Potassium 3.8, Chloride 108, Carbon Dioxide 23.3, Anion Gap 8, BUN 8, Creatinine 0.63 L, Estim Creat Clear Calc 135.59, Est GFR (MDRD) Non-Af 103, BUN/Creatinine Ratio 12.5, Glucose 79, Calcium 8.9 Micro: Microbiology 11/20/24 14:33 Blood Culture (Wb) - Anticubital Left Bacteria Detection (PCR) - Final Meth. resistant Staph. aureus 11/20/24 14:33 Blood Culture (Wb) - Anticubital Left Blood Culture - Preliminary Staphylococcus aureus 11/20/24 15:03 Blood Culture (Wb) - Venous Blood Culture - Final Staphylococcus aureus 11/20/24 14:33 Urine Catheter - Catheter Urine Culture - Final Culture exhibits no growth. Rhythm Strip Rhythm Strip: A sensed BiV paced Rate: 62 Cardiology Labs/Tests 11/23/24 04:32: WBC 5.8, RBC 3.59 L, Hgb 10.4 L, Hct 32.7 L, MCV 91.1, MCH 29.0, MCHC 31.8 L, Plt Count 105 L, MPV 10.3, Immature Gran % (Auto) 0.300, Neut % (Auto) 65.1, Lymph % (Auto) 22.9, [place] % (Auto) 8.8, Eos % (Auto) 2.4, Baso % (Auto) 0.5, Absolute Neuts (auto) 3.8, Nucleated RBC % 0, Sodium 140, Potassium 3.8, Chloride 108, Carbon Dioxide 23.3, Anion Gap 8, BUN 8, Creatinine 0.63 L, Est GFR (MDRD) Non-Af 103, BUN/Creatinine Ratio 12.5, Glucose 79, Calcium 8.9 Rhythm: EKG: ECHO: Stress Test: Cardiac Cath: PCI: CT Surgery: Holter monitor: EPS: PPM: CXR: Chest CT Scan: Physical Exam Const alert and oriented x3 HEENT normocephalic Eyes EOMs intact bilaterally Neck Neck Narrative: Thick neck Chest Chest: left pectoral incision Resp normal respiratory effort Auscultation: diminished lung sounds right lower Cardio regular rate Cardio Narrative: Distant heart tones due to body habitus. Rhythm: regular rhythm Heart Sounds: S1 normal and S2 normal; Negative for click, gallop or murmur GI GI Narrative: Obese Extremity no pedal edema Neuro Neuro Narrative: Alert and oriented x 3 Psych mental status grossly normal Assessment & Plan Assessment/Plan (1) Nonischemic cardiomyopathy: PLAN: Patient carries a history of a nonischemic dilated cardiomyopathy. Transthoracic echocardiogram which had poor windows shows an EF of approximately 40%. The patient has L[employer]ATION [employer]-D device in place. The patient is on excellent guideline directed medical therapy. Recommend continuing current medical therapy as tolerated. Recommend reinstitute spironolactone 25 mg daily when appropriate as far as sepsis treatment. (2) MRSA bacteremia: PLAN: MRSA noted in the blood on 3 blood cultures. There is no obvious site. The patient's transthoracic echo was difficult to see. She is being evaluated for possible transesophageal echo later today. Transesophageal echocardiogram preliminarily shows no obvious evidence of vegetation. Final report to follow. (3) History of placement of internal cardiac defibrillator: PLAN: Patient has L[employer]-D device in place. Her rate is 62 atrial sinus rate which is tracked by the BiV pacer. PLAN: Plan 1. Continue current antibiotic therapy. No obvious site of intracardiac infection. Charges/Coding Visit Charges Inpatient E&M: 47998 Subs Hosp L2
[2024-11-23 08:06] VITALS: O2SAT 93
[2024-11-23 08:10] VITALS: O2SAT 93
[2024-11-23 08:45] LABS: Bedside Glucose 83 mg/dL (74-106)
[2024-11-23 10:00] VITALS: BP 125/70; PULSE 77; RESP 18; TEMP 36.7; O2SAT 92
[2024-11-23] MEDS: Lidocaine 5% Patch 1 PATCH TOPICAL (10:40)
--- NOTE | 2024-11-23 13:11 | PCM.CONS.GEN ---
Assessment & Plan Assessment/Plan (1) MRSA bacteremia: PLAN: sepsis due to MRSA bacteremia per pcr, suspected source recent fall with scrape to L elbow. KANDY reportedly showed no veg. Will repeat bcx today. Having point tenderness over L spine. Noncontrast lumbar CT showed only severe degenerative disease, and she reports her ICD is not MRI compatible. Will cont vanc, stop cefepime. If back pain does not improve, may need spine surgery eval and/or CT with contrast. Will follow, thank you (2) Sepsis: (3) Low back pain: HPI Consult Data Date of Consult: 11/23/24 HPI Narrative Reason for Consultation: bacteremia HPI Narrative: DOLORES SALMERON, is a 59 F who presented 11/20 with acute onset weakness, fever, low back pain. No focal weakness. Tripped and fell about 2 weeks prior and scrapped her L elbow. No recent skin infections or procedures. No issues with L chest ICD site. No cough or SOB. No n/v/d. No focal joint pain other than her back. Admitted, now on vanc and cefepime. Mild sore throat s/p KANDY today. Full ROS performed and neg except as noted above. [facility]LY [facility] Medical History MRSA (methicillin resistant staph aureus) culture positive Cardiomyopathy, ischemic Vitamin D deficiency Neuropathy History of placement of internal cardiac defibrillator (09/03/13) GERD (gastroesophageal reflux disease) Anxiety Obesity Type 2 diabetes mellitus with diabetic neuropathy, unspecified Chest pain Heart disease Headache Arthritis Seasonal allergies Nonischemic dilated cardiomyopathy Gout Pulmonary HTN Hyperlipidemia RLS (restless legs syndrome) HTN (hypertension) Home Medications ?Medication ?Instructions ?Recorded ?Last Taken ?Type docusate sodium 100 mg capsule 100 mg PO BID PRN 05/06/24 Unknown History (Colace) CareFine Pen Needle 30 gauge x #120 ea 05/29/24 Unknown Rx 5/16 (pen needle, diabetic) insulin syringe-needle U-100 0.5 #90 ea 05/29/24 Unknown Rx mL 31 gauge x /16 (BD Insulin Syringe Ultra-Fine) sacubitril 24 mg-valsartan 26 mg 1 tab PO BID #60 tabs 06/03/24 Unknown Rx tablet (Entresto) blood sugar diagnostic (OneTouch #100 ea 10/15/24 Unknown Rx Verio test strips) 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 meter (OneTouch #1 ea 10/15/24 Unknown Rx Verio Reflect Meter) 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 meter,continuous #1 ea 10/15/24 Unknown Rx (FreeStyle Lance 3 Spring) 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 sensor (FreeStyle #2 ea 10/15/24 Unknown Rx Lance 3 Plus Sensor device) dulaglutide 1.5 mg/0.5 mL 1.5 mg (0.5 mL) subcut QWEEK #2 mL 10/15/24 Unknown Rx subcutaneous pen injector (Trulicity) insulin lispro 100 unit/mL 30 unit subcut TID 10/19/24 Unknown History subcutaneous pen insulin glargine 100 unit/mL (3 40 unit (0.4 mL) subcut BID #30 mL 10/21/24 Unknown Rx mL) subcutaneous pen (Lantus Solostar U-100 Insulin) atorvastatin 10 mg tablet (Lipitor) 10 mg PO DAILY cholesterol #90 tabs 10/22/24 Unknown Rx carvedilol 25 mg tablet 25 mg PO Q12H #180 tabs 10/22/24 Unknown Rx cetirizine 10 mg capsule 10 mg PO DAILY #90 caps 10/22/24 Unknown Rx cholecalciferol (vitamin D3) 1,250 1,250 mcg PO QWEEK #12 caps 10/22/24 Unknown Rx mcg (50,000 unit) capsule duloxetine 60 mg capsule,delayed 60 mg PO BID #180 caps 10/22/24 Unknown Rx release magnesium oxide 400 mg (241.3 mg 400 mg PO BID #180 tabs 10/22/24 Unknown Rx magnesium) tablet gabapentin 300 mg capsule 300 mg PO DAILY #28 caps 10/29/24 Unknown Rx spironolactone 25 mg tablet 25 mg PO DAILY #30 tabs 11/04/24 Unknown Rx pantoprazole 40 mg tablet,delayed 40 mg PO BID #180 tabs 11/19/24 Unknown Rx release (Protonix) ropinirole 0.5 mg tablet 0.5 mg PO QHS #90 tabs 11/19/24 Unknown Rx Allergy/AdvReac Type Severity Reaction Status Date / Time simvastatin Allergy Severe Myalgia Verified 11/20/24 14:18 Latex, Natural Rubber Allergy Unknown Rash Verified 11/20/24 14:18 metformin Allergy Other Verified 11/20/24 14:18 adhesive tape AdvReac Severe Rash Verified 11/20/24 14:18 Family History Father Heart disease Myocardial infarction CAD (coronary artery disease) Mother CAD (coronary artery disease) Heart disease Cancer breast Grandmother Colon cancer Daughter Breast cancer Surgical History History of left heart catheterization Hx of appendectomy H/O colectomy History of hysteroscopy Social History household members: family and other details: ex mother in law , ex housing: house current occupational status: disabled 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 Smoking Status: Never smoker second hand exposure: No alcohol intake: never substance use type: does not use what type of physical activity do you participate in: none seatbelt use: always do you feel safe at home: Yes Physical Exam Const alert, oriented x3 and no apparent distress General Appearance: cooperative HEENT normocephalic and head/scalp atraumatic Eyes PERRL and EOMs intact bilaterally Neck supple and No nodes Resp normal air movement and clear to auscultation bilaterally Cardio regular rate, regular rhythm and no murmurs GI soft to palpation, non-tender and non-distended Extremity General Extremity: Negative for edema Skin no rashes or lesions noted Skin Narrative: no splinter hemorrhages on hands. Point tenderness at lower L-spine Neuro CN's II-XII intact bilaterally Lab / Micro Data Attestation: I reviewed the patient's lab results. 11/23/24 04:32 11/23/24 04:32 Labs: Laboratory Results - last 24 hr 11/22/24 16:48: POC Glucose 179 H 11/22/24 21:35: POC Glucose 85 11/23/24 04:32: WBC 5.8, RBC 3.59 L, Hgb 10.4 L, Hct 32.7 L, MCV 91.1, MCH 29.0, MCHC 31.8 L, RDW Std Deviation 48.3 H, RDW Coeff of [place]atum 14.6, Plt Count 105 L, MPV 10.3, Immature Gran % (Auto) 0.300, Neut % (Auto) 65.1, Lymph % (Auto) 22.9, [place] % (Auto) 8.8, Eos % (Auto) 2.4, Baso % (Auto) 0.5, Absolute Neuts (auto) 3.8, Absolute Lymphs (auto) 1.32, Nucleated RBC % 0, Sodium 140, Potassium 3.8, Chloride 108, Carbon Dioxide 23.3, Anion Gap 8, BUN 8, Creatinine 0.63 L, Estim Creat Clear Calc 135.59, Est GFR (MDRD) Non-Af 103, BUN/Creatinine Ratio 12.5, Glucose 79, Calcium 8.9 11/23/24 08:01: POC Glucose 83 Micro: Microbiology 11/20/24 15:03 Blood Culture (Wb) - Venous Blood Culture - Final Staphylococcus aureus 11/20/24 14:33 Blood Culture (Wb) - Anticubital Left Bacteria Detection (PCR) - Final Meth. resistant Staph. aureus 11/20/24 14:33 Blood Culture (Wb) - Anticubital Left Blood Culture - Final Meth. resistant Staph. aureus 11/20/24 14:33 Urine Catheter - Catheter Urine Culture - Final Culture exhibits no growth. Rhythm Strip Rhythm Strip: A sensed BiV paced Rate: 62
[2024-11-23] MEDS: DULoxetine Hcl 60 MG Capsule PO ×2 (14:33→22:08)
[2024-11-23] MEDS: SACUBITRIL/VALSARTAN 24/26 MG TABLET 1 EACH PO ×2 (14:34→22:09)
[2024-11-23] MEDS: Atorvastatin Calcium 10 MG Tablet PO (14:34)
[2024-11-23] MEDS: Loratadine 10 MG Tablet PO (14:34)
[2024-11-23] MEDS: Pantoprazole Sodium 40 MG Tablet PO ×2 (14:35→22:09)
[2024-11-23] MEDS: Enoxaparin 40 MG/0.4 ML Syringe SC ×2 (14:36→22:09)
[2024-11-23] MEDS: Gabapentin 300 MG Capsule PO (14:40)
[2024-11-23 14:55] LABS: Bedside Glucose 92 mg/dL (74-106)
[2024-11-23 16:00] VITALS: BP 126/70; PULSE 63; RESP 18; TEMP 36.7; O2SAT 93
[2024-11-23] MEDS: Carvedilol 25 MG Tablet PO (16:33)
[2024-11-23 16:44] LABS: Bedside Glucose 93 mg/dL (74-106)
[2024-11-23] MEDS: Insulin Lispro 100 UNIT/ML INSULN.PEN 30 UNIT SC (17:32)
[2024-11-23 18:14] LABS: Vancomycin, Trough Level 18.3 ug/mL (5.0-15.0)
--- NOTE | 2024-11-23 18:31 | PCM.RX.CS ---
Consult Antibiotic Management Pharmacy has been consulted to manage selected antibiotic: Vancomycin Type of Intervention Type of Consult: Follow-up Suspected Infection Suspected Infection: Sepsis Labs Labs: Sodium 140 mmol/L (133-145) 11/23/24 04:32 Potassium 3.8 mmol/L (3.3-5.1) 11/23/24 04:32 Chloride 108 mmol/L (98-108) 11/23/24 04:32 Carbon Dioxide 23.3 mmol/L (21.0-32.0) 11/23/24 04:32 Anion Gap 8 (5-15) 11/23/24 04:32 BUN 8 mg/dL (4-19) 11/23/24 04:32 Creatinine 0.63 mg/dL (0.70-1.20) L 11/23/24 04:32 Est GFR (MDRD) Non-Af 103 (>60) 11/23/24 04:32 BUN/Creatinine Ratio 12.5 RATIO (10-20) 11/23/24 04:32 Glucose 79 mg/dL (70-99) 11/23/24 04:32 Vancomycin Trough 18.3 ug/mL (5.0-15.0) H 11/23/24 17:30 Microbiology Microbiology: Microbiology 11/20/24 15:03 Blood Culture (Wb) - Venous Blood Culture - Final Staphylococcus aureus 11/20/24 14:33 Blood Culture (Wb) - Anticubital Left Bacteria Detection (PCR) - Final Meth. resistant Staph. aureus 11/20/24 14:33 Blood Culture (Wb) - Anticubital Left Blood Culture - Final Meth. resistant Staph. aureus 11/20/24 14:33 Urine Catheter - Catheter Urine Culture - Final Culture exhibits no growth. 11/20/24 05:15 Mucosa - Nasopharyngeal Respiratory Panel (PCR) - Final 11/20/24 14:33 Mucosa - Nose SARS-CoV-2, Influenza & RSV (PCR) - Final Goal Trough Goal Trough: 15-20 mcg/mL Pharmacy Plan for Drug Dosing Pharmacy Plan for Drug Dosing: VANCOMYCIN LEVEL RECEIVED Current Vancomycin Dose: 2000mg q12h (,) Number of Doses Received: x3 of current dose Vancomycin Level: 18.3 (drawn 11/23/24 at 1730) Hours Since Last Dose: 12 hours since last 2000mg dose on 11/23/24 at 0543 Renal Function: SrCr 0.63 Renal Function Trend: SrCr improving (was 0.87 on 11/21/24 and 0.7 on 11/22/24) Lab/Micro: Vancomycin Plan/Comments: resulted trough of 18.3 is within the ordered goal trough range of 15-20. recommend continuing current dose of 2000mg q12h and checking a trough 11/25/24 at 0530 Pending Level: 11/25/24 at 0530 Pharmacy Service will continue to monitor and adjust dosing as required. Follow-Up Labs Follow-Up Labs: Trough: Vancomycin (11/25/24 at 0530)
[2024-11-23 22:00] VITALS: BP 110/65; PULSE 73; RESP 16; TEMP 36.7; O2SAT 94
[2024-11-23] MEDS: Pramipexole Di-HCl 0.25 MG Tablet PO (22:09)
[2024-11-23 22:33] LABS: Bedside Glucose 82 mg/dL (74-106)
[2024-11-24 03:50] VITALS: BP 120/64; PULSE 69; RESP 16; TEMP 36.8; O2SAT 93
[2024-11-24 06:00] VITALS: BMI 40.1
[2024-11-24 06:06] LABS: Absolute Lymphocyte Count 1.67 X10^3/uL (0.83-4.51); Basophil# 0.04 X10^3/uL; Basophil% 0.9 % (0-1); Eosinophil# 0.13 X10^3/uL; Hematocrit 32.4 % (37-47); Hemoglobin 10.4 g/dL (12.0-15.0); Lymphocyte # 1.67 X10^3/ul (0.83-4.51); Lymphocyte % 38.3 % (19-41); Mean Corp Hgb Conc 32.1 g/dL (32-36); Mean Corpuscular Volume 90.3 fL (81-99); Mean Platelet Vol. 10.7 fl (6.2-12.0); Monocyte# 0.48 X10^3/uL; NRBC Flagged by Analyzer 0 % (0-5); Neutrophil # 2.02 X10^3/uL (2.7-7.7); Neutrophil % 46.3 % (47-70); Platelet Count 123 K/mm3 (150-450); RBC Distribution Width CV 14.4 % (11.6-14.6); RBC Distribution Width SD 48.1 fl (35.1-43.9); Red Blood Count 3.59 M/mm3 (4.2-5.4); White Blood Count 4.4 K/mm3 (4.4-11.0)
[2024-11-24] MEDS: Vancomycin HCl 2,000 MG in 0.9% Normal Saline (500mL Bag) 500 ML 250 MG IV ×2 (06:21→18:16)
[2024-11-24] MEDS: 0.9% Saline Lock 10 ML Syringe IV ×2 (06:21→22:43)
[2024-11-24 06:28] LABS: Anion Gap 10 (5-15); BUN 6 mg/dL (4-19); BUN/Creat Ratio 9.7 RATIO (10-20); Calcium,Total 8.9 mg/dL (7.6-11.0); Carbon Dioxide 22.7 mmol/L (21.0-32.0); Chloride 107 mmol/L (98-108); Creatinine, Serum 0.62 mg/dL (0.70-1.20); EST Glomerular Filtration Rate 103 (>60); Glucose 85 mg/dL (70-99); Potassium 3.9 mmol/L (3.3-5.1); Sodium Level 140 mmol/L (133-145)
[2024-11-24 06:47] LABS: Bedside Glucose 91 mg/dL (74-106)
--- NOTE | 2024-11-24 07:35 | PCM.PN.CARD ---
Subjective Subjective Patient is resting comfortably in the bed. Vital signs have been stable over the last 24 hours. Transesophageal echocardiogram yesterday showed no evidence of SBE. The device wires were clean and no evidence of vegetation. There was no obvious vegetations on the valves. The patient remains in atrial sensed ventricular paced rhythm at 62 bpm on telemetry. Objective Data Vital Signs: Vital Signs Temp Pulse Resp BP Pulse Ox O2 Del Method O2 Flow Rate 98.2 F 69 16 120/64 93 Room Air 2 11/24/24 03:50 11/24/24 03:50 11/24/24 03:50 11/24/24 03:50 11/24/24 03:50 11/24/24 07:24 11/23/24 08:10 Oxygen Flow Rate (L/min) 2 Oxygen Delivery Method Room Air Weight: 271 lb 6.224 oz Body Mass Index (BMI) 40.1 Intake & Output: Intake and Output for Last 24 Hours 11/22/24 11/23/24 11/24/24 23:59 23:59 23:59 Intake Total 1779.00 / 1779.00 1540 / 1540 Output Total 458 / 458 Balance 1321.00 / 1321.00 1540 / 1540 Lab / Micro Data 11/24/24 04:55 11/24/24 04:55 Labs: Laboratory Results - last 24 hr 11/23/24 08:01: POC Glucose 83 11/23/24 14:29: POC Glucose 92 11/23/24 16:14: POC Glucose 93 11/23/24 17:30: Vancomycin Trough 18.3 H 11/23/24 22:05: POC Glucose 82 11/24/24 04:55: WBC 4.4, RBC 3.59 L, Hgb 10.4 L, Hct 32.4 L, MCV 90.3, MCH 29.0, MCHC 32.1, RDW Std Deviation 48.1 H, RDW Coeff of [place] 14.4, Plt Count 123 L, MPV 10.7, Immature Gran % (Auto) 0.500, Neut % (Auto) 46.3 L, Lymph % (Auto) 38.3, [place] % (Auto) 11.0 H, Eos % (Auto) 3.0, Baso % (Auto) 0.9, Absolute Neuts (auto) 2.0, Absolute Lymphs (auto) 1.67, Nucleated RBC % 0, Sodium 140, Potassium 3.9, Chloride 107, Carbon Dioxide 22.7, Anion Gap 10, BUN 6, Creatinine 0.62 L, Estim Creat Clear Calc 138.90, Est GFR (MDRD) Non-Af 103, BUN/Creatinine Ratio 9.7 L, Glucose 85, Calcium 8.9 11/24/24 06:19: POC Glucose 91 Micro: Microbiology 11/20/24 15:03 Blood Culture (Wb) - Venous Blood Culture - Final Staphylococcus aureus 11/20/24 14:33 Blood Culture (Wb) - Anticubital Left Bacteria Detection (PCR) - Final Meth. resistant Staph. aureus 11/20/24 14:33 Blood Culture (Wb) - Anticubital Left Blood Culture - Final Meth. resistant Staph. aureus Rhythm Strip Rhythm Strip: A sensed BiV paced Rate: 62 Cardiology Labs/Tests 11/24/24 04:55: WBC 4.4, RBC 3.59 L, Hgb 10.4 L, Hct 32.4 L, MCV 90.3, MCH 29.0, MCHC 32.1, Plt Count 123 L, MPV 10.7, Immature Gran % (Auto) 0.500, Neut % (Auto) 46.3 L, Lymph % (Auto) 38.3, [place] % (Auto) 11.0 H, Eos % (Auto) 3.0, Baso % (Auto) 0.9, Absolute Neuts (auto) 2.0, Nucleated RBC % 0, Sodium 140, Potassium 3.9, Chloride 107, Carbon Dioxide 22.7, Anion Gap 10, BUN 6, Creatinine 0.62 L, Est GFR (MDRD) Non-Af 103, BUN/Creatinine Ratio 9.7 L, Glucose 85, Calcium 8.9 Rhythm: EKG: ECHO: Stress Test: Cardiac Cath: PCI: CT Surgery: Holter monitor: EPS: PPM: CXR: Chest CT Scan: Radiography Diagnostic Testing: Radiology Impression Transesophageal Echocardiogram 11/23/24 07:12 Interpretation Summary Normal LV size. Left ventricular systolic function is normal. The left ventricular ejection fraction is 45 %. Pacer leads seen with no vegetations seen No pericardial effusion. Ordering Physician: Radha Dumont Referring Physician: Lisseth Peñaloza Performed By: Cassy Becker, JEANINE, RVT Physical Exam Const alert and oriented x3 HEENT normocephalic Eyes EOMs intact bilaterally Neck no JVD Chest Chest: left pectoral incision Resp normal respiratory effort Cardio regular rate and regular rhythm Extremity no pedal edema Psych mental status grossly normal Assessment & Plan Assessment/Plan (1) Nonischemic cardiomyopathy: PLAN: Patient's device is working appropriately he is atrially sensed ventricular paced. She is followed by the [facility]. She has an appointment to see Dr. Trujillo in December. From a cardiovascular standpoint the patient should continue her home medications and follow-up for her previously arranged appointments. (2) MRSA bacteremia: PLAN: Patient is continuing to be treated by the primary service for her MRSA bacteremia. There was no evidence of vegetations on her transesophageal echocardiogram yesterday. PLAN: Plan From a cardiovascular standpoint the patient can be discharged to home and follow-up per her previous arranged cardiac appointments. Charges/Coding Visit Charges Inpatient E&M: 65191 Subs Hosp L2
--- NOTE | 2024-11-24 07:36 | PN.HOSP_ITS ---
Reason for Visit Reason for Visit: Diagnoses Sepsis, unspecified organism (11/20/24) Methicillin resistant Staphylococcus aureus infection as the cause of diseases classified elsewhere (11/20/24) Type 2 diabetes mellitus without complications (11/20/24) Other cardiomyopathies (11/20/24) Low back pain, unspecified (11/20/24) Fever, unspecified (11/20/24) Shock, unspecified (11/20/24) Bacteremia (11/20/24) Presence of automatic (implantable) cardiac defibrillator (11/20/24) Subjective Subjective Feels well. No new complaints. Objective Data Objective Data Vital Signs: Vital Signs Temp Pulse Resp BP Pulse Ox O2 Del Method O2 Flow Rate 36.8 C 69 16 120/64 93 Room Air 2 11/24/24 03:50 11/24/24 03:50 11/24/24 03:50 11/24/24 03:50 11/24/24 03:50 11/24/24 07:24 11/23/24 08:10 Oxygen Flow Rate (L/min) 2 Oxygen Delivery Method Room Air Weight: 123.1 kg Body Mass Index (BMI) 40.1 Intake & Output: Intake and Output for Last 24 Hours 11/22/24 11/23/24 11/24/24 23:59 23:59 23:59 Intake Total 1779.00 / 1779.00 1540 / 1540 Output Total 458 / 458 Balance 1321.00 / 1321.00 1540 / 1540 Lab / Micro Data 11/24/24 04:55 11/24/24 04:55 Labs: Laboratory Results - last 24 hr 11/23/24 08:01: POC Glucose 83 11/23/24 14:29: POC Glucose 92 11/23/24 16:14: POC Glucose 93 11/23/24 17:30: Vancomycin Trough 18.3 H 11/23/24 22:05: POC Glucose 82 11/24/24 04:55: WBC 4.4, RBC 3.59 L, Hgb 10.4 L, Hct 32.4 L, MCV 90.3, MCH 29.0, MCHC 32.1, RDW Std Deviation 48.1 H, RDW Coeff of [place] 14.4, Plt Count 123 L, MPV 10.7, Immature Gran % (Auto) 0.500, Neut % (Auto) 46.3 L, Lymph % (Auto) 38.3, [place] % (Auto) 11.0 H, Eos % (Auto) 3.0, Baso % (Auto) 0.9, Absolute Neuts (auto) 2.0, Absolute Lymphs (auto) 1.67, Nucleated RBC % 0, Sodium 140, Potassium 3.9, Chloride 107, Carbon Dioxide 22.7, Anion Gap 10, BUN 6, Creatinine 0.62 L, Estim Creat Clear Calc 138.90, Est GFR (MDRD) Non-Af 103, BUN/Creatinine Ratio 9.7 L, Glucose 85, Calcium 8.9 11/24/24 06:19: POC Glucose 91 Micro: Microbiology 11/20/24 15:03 Blood Culture (Wb) - Venous Blood Culture - Final Staphylococcus aureus 11/20/24 14:33 Blood Culture (Wb) - Anticubital Left Bacteria Detection (PCR) - Final Meth. resistant Staph. aureus 11/20/24 14:33 Blood Culture (Wb) - Anticubital Left Blood Culture - Final Meth. resistant Staph. aureus 11/20/24 14:33 Urine Catheter - Catheter Urine Culture - Final Culture exhibits no growth. 11/20/24 05:15 Mucosa - Nasopharyngeal Respiratory Panel (PCR) - Final 11/20/24 14:33 Mucosa - Nose SARS-CoV-2, Influenza & RSV (PCR) - Final Radiography Diagnostic Testing: Radiology Impression Transesophageal Echocardiogram 11/23/24 07:12 Interpretation Summary Normal LV size. Left ventricular systolic function is normal. The left ventricular ejection fraction is 45 %. Pacer leads seen with no vegetations seen No pericardial effusion. Ordering Physician: Radha Dumont Referring Physician: Lisseth Peñaloza Performed By: Cassy Becker, JEANINE, RVT Rhythm Strip Rhythm Strip: A sensed BiV paced Rate: 62 Physical Exam Const alert and no apparent distress Constitutional Narrative: up in chair. non-toxic. afebrile. HEENT head/scalp atraumatic and moist oral mucous membranes Resp normal respiratory effort and no retractions Assessment & Plan Assessment/Plan (1) Shock: PLAN: Resolved Likely septic given bacteremia. pt did not receive 30 cc/kg of IVF given h/o ischemic cardiomyopathy. Norepi gtt weaned off. POA. vancomycin Follow up cultures. Per ID recommending follow up cultures and if negative, will plan on 6 weeks of IV cefazolin. (2) Bacteremia: PLAN: Unclear source. Blood culture 11/20/24 showing GPC in clusters. PCR + MRSA. Repeat blood cultures on 11/21 pending. TTE on 11/21 showed an EF 40%. KANDY negative. [facility] Likely the cefepime can be dropped, but will await on the final blood cultures from 11/20 before discontinuation. (3) Low back pain: PLAN: status post fall. Lumbar CT showed severe DDD at L5-S1. paraspinal musculature. Lidoderm patch. supportive mgmt. PLAN: Plan Chronic conditions: * Ischemic cardiomyopathy: EF 40% resume carvedilol and sacubitril (initially held given shock) * obesity class III: complicates care and recovery * DM2: Glargine and SSI. a1c 10.7 09/07/24 VTE prophylaxis: LMWH Charges/Coding Visit Charges Inpatient E&M: 04147 Subs Hosp L2
[2024-11-24 08:05] VITALS: O2SAT 96
[2024-11-24 09:05] VITALS: BP 132/69; PULSE 75; RESP 18; TEMP 36.4; O2SAT 94
[2024-11-24] MEDS: Insulin Lispro 100 UNIT/ML INSULN.PEN 30 UNIT SC ×3 (09:07→16:59)
[2024-11-24] MEDS: Pantoprazole Sodium 40 MG Tablet PO ×2 (09:09→22:42)
[2024-11-24] MEDS: Atorvastatin Calcium 10 MG Tablet PO (09:09)
[2024-11-24] MEDS: SACUBITRIL/VALSARTAN 24/26 MG TABLET 1 EACH PO ×2 (09:09→22:43)
[2024-11-24] MEDS: DULoxetine Hcl 60 MG Capsule PO ×2 (09:09→22:43)
[2024-11-24] MEDS: Loratadine 10 MG Tablet PO (09:09)
[2024-11-24] MEDS: Enoxaparin 40 MG/0.4 ML Syringe SC ×2 (09:09→22:43)
[2024-11-24] MEDS: Carvedilol 25 MG Tablet PO ×2 (09:09→16:19)
[2024-11-24] MEDS: Insulin Glargine-YFGN 100 UNIT/ML Pen 40 UNIT SC (09:10)
[2024-11-24] MEDS: Lidocaine 5% Patch 1 PATCH TOPICAL (09:16)
[2024-11-24] MEDS: Gabapentin 300 MG Capsule PO (09:18)
--- NOTE | 2024-11-24 10:22 | PCM.PN.ID ---
Physical Exam Narrative Feeling better, no fever, no n/v/d. Pain in back slightly improved. Const alert and no apparent distress General Appearance: cooperative Resp normal air movement and clear to auscultation bilaterally Cardio regular rate and regular rhythm GI soft to palpation, non-tender and non-distended Skin no rashes or lesions noted ID ID: Route of nutrition/ use of supplements: [] Nutritional Intake: [] IV Site: [] Thapa Catheter: [] Assessment & Plan Assessment/Plan (1) MRSA bacteremia: PLAN: sepsis due to MRSA bacteremia, suspected source recent fall with scrape to L elbow. KANDY reportedly showed no veg. Repeat bcx ngtd. Having point tenderness over L spine. Noncontrast lumbar CT showed only severe degenerative disease, and she reports her pacer-ICD is not MRI compatible. Will cont vanc. If back pain does not improve, may need spine surgery eval and/or CT with contrast. If bcx stay neg tomorrow, plan will be picc and 6 weeks iv cefazolin. Will follow (2) Sepsis: (3) Low back pain:
[2024-11-24 11:57] LABS: Bedside Glucose 201 mg/dL (74-106)
[2024-11-24] MEDS: Insulin Lispro 100 UNIT/ML INSULN.PEN SC (13:04)
[2024-11-24 15:05] VITALS: BP 114/60; PULSE 71; RESP 18; TEMP 36.8; O2SAT 92
[2024-11-24 16:55] LABS: Bedside Glucose 94 mg/dL (74-106)
[2024-11-24 22:30] VITALS: BP 131/71; PULSE 62; RESP 16; TEMP 36.6; O2SAT 94
[2024-11-24] MEDS: Pramipexole Di-HCl 0.25 MG Tablet PO (22:42)
[2024-11-24 23:45] LABS: Bedside Glucose 99 mg/dL (74-106)
[2024-11-25 03:10] VITALS: BP 141/78; PULSE 61; RESP 16; TEMP 36.7; O2SAT 97
[2024-11-25 05:41] LABS: Absolute Lymphocyte Count 1.76 X10^3/uL (0.83-4.51); Absolute Neutrophil Count 2.1 X10^3/uL (2.0-7.7); Basophil# 0.04 X10^3/uL; Basophil% 0.9 % (0-1); Eosinophils% 2.1 % (0-5); Hematocrit 31.8 % (37-47); Hemoglobin 10.4 g/dL (12.0-15.0); Lymphocyte # 1.76 X10^3/ul (0.83-4.51); Lymphocyte % 37.4 % (19-41); Mean Corp Hgb Conc 32.7 g/dL (32-36); Mean Corpuscular Volume 88.6 fL (81-99); Monocyte# 0.57 X10^3/uL; Monocyte% 12.1 % (0-10); NRBC Flagged by Analyzer 0 % (0-5); Neutrophil # 2.14 X10^3/uL (2.7-7.7); Neutrophil % 45.6 % (47-70); Platelet Count 142 K/mm3 (150-450); RBC Distribution Width CV 14.4 % (11.6-14.6); RBC Distribution Width SD 46.5 fl (35.1-43.9); Red Blood Count 3.59 M/mm3 (4.2-5.4); White Blood Count 4.7 K/mm3 (4.4-11.0)
[2024-11-25 05:51] VITALS: BMI 40.4
[2024-11-25 06:09] LABS: Vancomycin, Trough Level 21.2 ug/mL (5.0-15.0)
[2024-11-25 06:12] LABS: Anion Gap 10 (5-15); BUN 5 mg/dL (4-19); BUN/Creat Ratio 7.2 RATIO (10-20); Calcium,Total 8.9 mg/dL (7.6-11.0); Chloride 109 mmol/L (98-108); Creatinine, Serum 0.66 mg/dL (0.70-1.20); EST Glomerular Filtration Rate 102 (>60); Estimated Creatinine Clearance 131.01 ml/min (50-250); Glucose 125 mg/dL (70-99); Potassium 3.6 mmol/L (3.3-5.1); Sodium Level 141 mmol/L (133-145)
--- NOTE | 2024-11-25 06:31 | PCM.RX.CS ---
Consult Antibiotic Management Pharmacy has been consulted to manage selected antibiotic: Vancomycin Type of Intervention Type of Consult: Follow-up Suspected Infection Suspected Infection: Sepsis Labs Labs: Sodium 141 mmol/L (133-145) 11/25/24 05:24 Potassium 3.6 mmol/L (3.3-5.1) 11/25/24 05:24 Chloride 109 mmol/L (98-108) H 11/25/24 05:24 Carbon Dioxide 22.0 mmol/L (21.0-32.0) 11/25/24 05:24 Anion Gap 10 (5-15) 11/25/24 05:24 BUN 5 mg/dL (4-19) 11/25/24 05:24 Creatinine 0.66 mg/dL (0.70-1.20) L 11/25/24 05:24 Est GFR (MDRD) Non-Af 102 (>60) 11/25/24 05:24 BUN/Creatinine Ratio 7.2 RATIO (10-20) L 11/25/24 05:24 Glucose 125 mg/dL (70-99) H 11/25/24 05:24 Vancomycin Trough 21.2 ug/mL (5.0-15.0) H 11/25/24 05:24 Microbiology Microbiology: Microbiology 11/20/24 15:03 Blood Culture (Wb) - Venous Blood Culture - Final Staphylococcus aureus 11/20/24 14:33 Blood Culture (Wb) - Anticubital Left Bacteria Detection (PCR) - Final Meth. resistant Staph. aureus 11/20/24 14:33 Blood Culture (Wb) - Anticubital Left Blood Culture - Final Meth. resistant Staph. aureus 11/20/24 14:33 Urine Catheter - Catheter Urine Culture - Final Culture exhibits no growth. 11/20/24 05:15 Mucosa - Nasopharyngeal Respiratory Panel (PCR) - Final 11/20/24 14:33 Mucosa - Nose SARS-CoV-2, Influenza & RSV (PCR) - Final Dosing Weight Weight used for dosin kg Estimated Creatinine Clearance Estimated Creatinine Clearance: 131 Goal Trough Goal Trough: 15-20 mcg/mL Pharmacy Plan for Drug Dosing Pharmacy Plan for Drug Dosing: Vancomycin trough level of 21.2, drawn 11hrs post-dose, was slightly above the target range of 15-20. Will decrease dose to 1750mg q12h and draw a trough level prior to the fourth dose of the new strength. Pharmacy Service will continue to monitor and adjust dosing as required. Follow-Up Labs Follow-Up Labs: Trough: Vancomycin Date/Time Labs Ordered Labs to be done on [date and time ordered]: 11/26/24 @1800
[2024-11-25] MEDS: Vancomycin HCl 1,750 MG in 0.9% Normal Saline (500mL Bag) 500 ML 250 MG IV ×2 (06:32→18:06)
[2024-11-25] MEDS: 0.9% Saline Lock 10 ML Syringe IV (06:33)
[2024-11-25 06:54] LABS: Bedside Glucose 132 mg/dL (74-106)
[2024-11-25 07:41] VITALS: O2SAT 96
--- NOTE | 2024-11-25 08:04 | PN.HOSP_ITS ---
Reason for Visit Reason for Visit: Diagnoses Sepsis, unspecified organism (11/20/24) Methicillin resistant Staphylococcus aureus infection as the cause of diseases classified elsewhere (11/20/24) Type 2 diabetes mellitus without complications (11/20/24) Other cardiomyopathies (11/20/24) Low back pain, unspecified (11/20/24) Fever, unspecified (11/20/24) Shock, unspecified (11/20/24) Bacteremia (11/20/24) Presence of automatic (implantable) cardiac defibrillator (11/20/24) Subjective Subjective Feeling well. No events overnight. Objective Data Objective Data Vital Signs: Vital Signs Temp Pulse Resp BP Pulse Ox O2 Del Method O2 Flow Rate 36.7 C 61 16 141/78 H 97 Room Air 2 11/25/24 03:10 11/25/24 03:10 11/25/24 03:10 11/25/24 03:10 11/25/24 03:10 11/25/24 03:10 11/23/24 08:10 Oxygen Flow Rate (L/min) 2 Oxygen Delivery Method Room Air Weight: 124 kg Body Mass Index (BMI) 40.4 Intake & Output: Intake and Output for Last 24 Hours 11/23/24 11/24/24 11/25/24 23:59 23:59 23:59 Intake Total 1540 / 1540 1680 / 1680 Balance 1540 / 1540 1680 / 1680 Lab / Micro Data 11/25/24 05:24 11/25/24 05:24 Labs: Laboratory Results - last 24 hr 11/24/24 11:28: POC Glucose 201 H 11/24/24 16:16: POC Glucose 94 11/24/24 22:38: POC Glucose 99 11/25/24 05:24: WBC 4.7, RBC 3.59 L, Hgb 10.4 L, Hct 31.8 L, MCV 88.6, MCH 29.0, MCHC 32.7, RDW Std Deviation 46.5 H, RDW Coeff of Tatum 14.4, Plt Count 142 L, MPV 10.0, Immature Gran % (Auto) 1.900 H, Neut % (Auto) 45.6 L, Lymph % (Auto) 37.4, Karnes % (Auto) 12.1 H, Eos % (Auto) 2.1, Baso % (Auto) 0.9, Absolute Neuts (auto) 2.1, Absolute Lymphs (auto) 1.76, Nucleated RBC % 0, Sodium 141, Potassium 3.6, Chloride 109 H, Carbon Dioxide 22.0, Anion Gap 10, BUN 5, Creatinine 0.66 L, Estim Creat Clear Calc 131.01, Est GFR (MDRD) Non-Af 102, BUN/Creatinine Ratio 7.2 L, Glucose 125 H, Calcium 8.9, Vancomycin Trough 21.2 H 11/25/24 06:31: POC Glucose 132 H Micro: Microbiology 11/20/24 15:03 Blood Culture (Wb) - Venous Blood Culture - Final Staphylococcus aureus 11/20/24 14:33 Blood Culture (Wb) - Anticubital Left Bacteria Detection (PCR) - Final Meth. resistant Staph. aureus 11/20/24 14:33 Blood Culture (Wb) - Anticubital Left Blood Culture - Final Meth. resistant Staph. aureus 11/20/24 14:33 Urine Catheter - Catheter Urine Culture - Final Culture exhibits no growth. 11/20/24 05:15 Mucosa - Nasopharyngeal Respiratory Panel (PCR) - Final 11/20/24 14:33 Mucosa - Nose SARS-CoV-2, Influenza & RSV (PCR) - Final Rhythm Strip Rhythm Strip: A sensed BiV paced Rate: 62 Physical Exam Const alert and no apparent distress Constitutional Narrative: up in bed. Non-toxic. afebrile. HEENT head/scalp atraumatic Psych affect normal Assessment & Plan Assessment/Plan (1) Shock: PLAN: Resolved Likely septic given bacteremia. pt did not receive 30 cc/kg of IVF given h/o ischemic cardiomyopathy. Norepi gtt weaned off. POA. vancomycin Follow up cultures. Per ID recommending follow up cultures and if negative, will plan on 6 weeks of IV vancomycin (not cefazolin as previously mentioned) (2) Bacteremia: PLAN: Unclear source. Blood culture 11/20/24 showing GPC in clusters. PCR + MRSA. Repeat blood cultures on 11/21 and so far negative. TTE on 11/21 showed an EF 40%. KANDY negative. [facility] Likely the cefepime can be dropped, but will await on the final blood cultures from 11/20 before discontinuation. (3) Low back pain: PLAN: status post fall. Lumbar CT showed severe DDD at L5-S1. paraspinal musculature. Lidoderm patch. supportive mgmt. PLAN: Plan Chronic conditions: * Ischemic cardiomyopathy: EF 40% resume carvedilol and sacubitril (initially held given shock) * obesity class III: complicates care and recovery * DM2: Glargine and SSI. a1c 10.7 09/07/24 VTE prophylaxis: LMWH Disposition: to home with [facility] for IV abx on 11/26. Charges/Coding Visit Charges Inpatient E&M: 78217 Subs Hosp L1
[2024-11-25] MEDS: Loratadine 10 MG Tablet PO (09:34)
[2024-11-25] MEDS: Carvedilol 25 MG Tablet PO ×2 (09:34→17:45)
[2024-11-25] MEDS: SACUBITRIL/VALSARTAN 24/26 MG TABLET 1 EACH PO ×2 (09:34→22:50)
[2024-11-25] MEDS: DULoxetine Hcl 60 MG Capsule PO ×2 (09:34→22:49)
[2024-11-25] MEDS: Pantoprazole Sodium 40 MG Tablet PO ×2 (09:34→22:51)
[2024-11-25] MEDS: Atorvastatin Calcium 10 MG Tablet PO (09:35)
[2024-11-25] MEDS: Enoxaparin 40 MG/0.4 ML Syringe SC ×2 (09:35→22:51)
[2024-11-25] MEDS: Insulin Glargine-YFGN 100 UNIT/ML Pen 40 UNIT SC ×2 (09:37→22:50)
[2024-11-25] MEDS: Insulin Lispro 100 UNIT/ML INSULN.PEN 30 UNIT SC ×2 (09:38→11:23)
[2024-11-25] MEDS: Gabapentin 300 MG Capsule PO (09:45)
[2024-11-25 09:51] VITALS: BP 139/57; PULSE 60; RESP 14; TEMP 36.8; O2SAT 94
[2024-11-25] MEDS: Insulin Lispro 100 UNIT/ML INSULN.PEN SC ×2 (11:23→22:50)
[2024-11-25] MEDS: Nystatin Powder 15gm Bottle 1 APPLIC TOPICAL ×2 (11:30→22:51)
--- NOTE | 2024-11-25 11:30 | CASEMGMT ---
Addendum entered by Tricia Molina 11/25/24 13:56: AFRICA HASSAN received call back from [facility] and they are able to accept patient with planned start of care for Saturday morning. AFRICA HASSAN updated ID and received ok to skip evening dose on 11/26. AFRICA HASSAN received script for IV Vanco, referral sent to [facility] via [facility]. AFRICA HASSAN updated patient and agreeable to plan. CM will continue to follow this patient and plan for a safe discharge. Original Note: AFRICA HASSAN updated by ID that patient will need IV Vanco q 12 at discharge. AFRICA HASSAN in to discuss needs at discharge. Patient wishes to discharge home with [facility] and home infusions. AFRICA HASSAN provided patient list of [facility] and agreeable to sent multiple referrals due to geographical area and insurance. Patient prefers [facility] for infusion agency. Patient denies further needs or concerns. AFRICA HASSAN called [facility] and made referral, awaiting acceptance. CM will continue to follow this patient and plans for a safe discharge.
--- NOTE | 2024-11-25 11:33 | CASEMGMT ---
Discharge Planning A list of?HH providers including quality and resource use data and consistent with the patient's preferred geographic region, medical needs, and insurance network was created in [facility] Guide.? This list was provided to the RN MO. Sandi Marin, Discharge Planning Asst.
[2024-11-25 12:14] LABS: Bedside Glucose 198 mg/dL (74-106)
--- NOTE | 2024-11-25 13:14 | PN.ID_ITS ---
Physical Exam Narrative No fever, no n/v/d. Feeling better. Back less sore. Const alert and no apparent distress General Appearance: cooperative Resp normal air movement and clear to auscultation bilaterally Cardio regular rate and regular rhythm GI soft to palpation, non-tender and non-distended Skin no rashes or lesions noted ID ID: Route of nutrition/ use of supplements: [] Nutritional Intake: [] IV Site: [] Thapa Catheter: [] Assessment & Plan Assessment/Plan (1) MRSA bacteremia: PLAN: sepsis due to MRSA bacteremia, suspected source recent fall with scrape to L elbow. KANDY reportedly showed no veg. Repeat bcx ngtd. Having point tenderness over L spine. Noncontrast lumbar CT showed only severe degenerative disease, and she reports her pacer-ICD is not MRI compatible. Will cont vanc. Will order picc and 6 weeks iv vanc stop date 01/02/25 with weekly labs and ID followup in 2-3 weeks. With cardiac device in place, will need to consider lo nger term suppressive po abx. D/w dependency case manager Will follow (2) Sepsis: (3) Low back pain:
[2024-11-25 14:44] VITALS: BP 125/64; PULSE 61; RESP 14; TEMP 36.6; O2SAT 96
[2024-11-25 18:05] LABS: Bedside Glucose 81 mg/dL (74-106)
[2024-11-25] MEDS: 0.9% Normal Saline (250mL Bag) 250 ML 15 ML IV (18:07)
[2024-11-25 22:45] VITALS: BP 148/75; PULSE 82; RESP 18; TEMP 36; O2SAT 97
[2024-11-25] MEDS: Pramipexole Di-HCl 0.25 MG Tablet PO (22:51)
[2024-11-25] MEDS: Ondansetron 4 MG/2 ML Vial IV (23:17)
[2024-11-25] MEDS: Lidocaine 5% Patch 1 PATCH TOPICAL (23:20)
[2024-11-26 00:33] LABS: Bedside Glucose 270 mg/dL (74-106)
[2024-11-26 03:42] VITALS: BMI 40.4
[2024-11-26] MEDS: Nystatin Powder 15gm Bottle 1 APPLIC TOPICAL (05:32)
[2024-11-26] MEDS: Vancomycin HCl 1,750 MG in 0.9% Normal Saline (500mL Bag) 500 ML 250 MG IV (05:32)
[2024-11-26 05:40] VITALS: BP 140/84; PULSE 84; RESP 16; TEMP 35.8; O2SAT 95
[2024-11-26 06:57] VITALS: O2SAT 94
[2024-11-26 08:55] VITALS: BP 161/75; PULSE 65; RESP 16; TEMP 36.4; O2SAT 93
[2024-11-26] MEDS: Loratadine 10 MG Tablet PO (08:59)
[2024-11-26] MEDS: SACUBITRIL/VALSARTAN 24/26 MG TABLET 1 EACH PO (08:59)
[2024-11-26] MEDS: Carvedilol 25 MG Tablet PO (09:00)
[2024-11-26] MEDS: DULoxetine Hcl 60 MG Capsule PO (09:00)
[2024-11-26] MEDS: Pantoprazole Sodium 40 MG Tablet PO (09:00)
[2024-11-26] MEDS: Enoxaparin 40 MG/0.4 ML Syringe SC (09:00)
[2024-11-26] MEDS: Insulin Glargine-YFGN 100 UNIT/ML Pen 40 UNIT SC (09:01)
[2024-11-26] MEDS: Gabapentin 300 MG Capsule PO (09:06)
[2024-11-26] MEDS: Atorvastatin Calcium 10 MG Tablet PO (09:06)
[2024-11-26] MEDS: Insulin Lispro 100 UNIT/ML INSULN.PEN 30 UNIT SC ×2 (09:07→11:43)
[2024-11-26] MEDS: Insulin Lispro 100 UNIT/ML INSULN.PEN SC ×2 (09:07→11:43)
[2024-11-26 09:29] LABS: Bedside Glucose 215 mg/dL (74-106)
--- NOTE | 2024-11-26 12:19 | PCM.DC.SUM ---
Providers Date of Admission: 11/20/24 Date of Discharge: 11/26/24 Primary Care Physician: Dr. Lisseth Peñaloza MD Consultations 11/20/24 19:29 Consult: Bellstand Attendant / Pulmonary Medicine Routine Consulting Provider: Intensivists/Pulmonary Med Reason for Consult: Sepsis of unclear source, ICU admit EMERGENT Consult: No MD Notified: Yes Date Notified: 11/20/24 Time Notified: 20:07 Method of Notification: Text 11/20/24 21:31 Consult: Cardiology Routine Consulting Provider: Jean Trujillo Reason for Consult: CHF, cardiogenic shock EMERGENT Consult: No Notified: Yes Date Notified: 11/22/24 Time Notified: 12:05 Method of Notification: Verbal 11/23/24 07:27 Consult: Infectious Disease Routine Consulting Provider: Michel Haq Reason for Consult: bacteremia EMERGENT Consult: No Notified: Yes Date Notified: 11/23/24 Time Notified: 07:27 Method of Notification: Text Reason For Visit: SEPSIS OF UNCLEAR ORIGIN Diagnosis Discharge Diagnosis (1) Shock: Status: Acute Code(s): R57.9 - Shock, unspecified (2) Bacteremia: Status: Acute Code(s): R78.81 - Bacteremia (3) Low back pain: Status: Acute Code(s): M54.50 - Low back pain, unspecified Medications at Discharge Home Medications docusate sodium 100 mg capsule (Colace) 100 mg PO BID PRN constipation 05/06/24 CareFine Pen Needle 30 gauge x 5/16 (pen needle, diabetic) #120 ea 05/29/24 insulin syringe-needle U-100 0.5 mL 31 gauge x 5/16 (BD Insulin Syringe Ultra-Fine) #90 ea 05/29/24 sacubitril 24 mg-valsartan 26 mg tablet (Entresto) 1 tab PO BID #60 tabs 06/03/24 blood sugar diagnostic (OneTouch Verio test strips) #100 ea 10/15/24 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 meter (OneTouch Verio Reflect Meter) #1 ea 10/15/24 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 meter,continuous (FreeStyle Lance 3 Fortescue) #1 ea 10/15/24 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 sensor (FreeStyle Lance 3 Plus Sensor device) #2 ea 04/03/25 dulaglutide 1.5 mg/0.5 mL subcutaneous pen injector (Trulicity) 1.5 mg (0.5 mL) subcut QWEEK #2 mL 10/15/24 insulin lispro 100 unit/mL subcutaneous pen 30 unit subcut TID dm 10/19/24 insulin glargine 100 unit/mL (3 mL) subcutaneous pen (Lantus Solostar U-100 Insulin) 40 unit (0.4 mL) subcut BID #30 mL 10/21/24 atorvastatin 10 mg tablet (Lipitor) 10 mg PO DAILY cholesterol #90 tabs 10/22/24 carvedilol 25 mg tablet 25 mg PO Q12H #180 tabs 10/22/24 cetirizine 10 mg capsule 10 mg PO DAILY #90 caps 10/22/24 cholecalciferol (vitamin D3) 1,250 mcg (50,000 unit) capsule 1,250 mcg PO QWEEK #12 caps 10/22/24 duloxetine 60 mg capsule,delayed release 60 mg PO BID #180 caps 10/22/24 magnesium oxide 400 mg (241.3 mg magnesium) tablet 400 mg PO BID #180 tabs 10/22/24 gabapentin 300 mg capsule 300 mg PO DAILY #28 caps 10/29/24 spironolactone 25 mg tablet 25 mg PO DAILY #30 tabs 11/04/24 pantoprazole 40 mg tablet,delayed release (Protonix) 40 mg PO BID #180 tabs 11/19/24 ropinirole 0.5 mg tablet 0.5 mg PO QHS #90 tabs 11/19/24 vancomycin 1.75 gram intravenous solution 1.75 g IV Q12H 39 days 11/25/24 Hospital Course Operations None Procedures None Summary of Care Provided Minutes Spent on Discharge: 45 Hospital Course: Patient is a 59-year-old female with a past medical history as outlined was admitted through the ED on 11/20/2024 with a complaint of back pain and fever. About a week prior to admission, she had what appeared to be the stress test with pacemaker check and fell in the parking lot. She did not get evaluated by her doctor as she says she felt fine. However subsequently started having severe back pain was unable to ambulate well. She therefore came into the ED after she also developed a fever. On admission temperature was 103.2 Fahrenheit and she was initially on 90% on room air. WBC was 9.6 and lactic acid was 2.4. Urinalysis showed no evidence of UTI. Chest x-ray showed no acute cardiopulmonary pathology. Lumbar spine CT shows severe degenerative disc disease at L5-S1 but no other pathology. CT brain was also unremarkable. He was admitted and managed for sepsis with unclear etiology at that time. She was started on broad-spectrum antibiotics. CT of the abdomen and pelvis done showed trace pericardial effusion but no acute intra-abdominal pathology. She was initially admitted to the ICU on account of low blood pressure. She was eventually started on norepinephrine due to septic shock. She had 2D echo which showed EF of 40% with stage I diastolic dysfunction and mild to moderate reduced left ventricular global systolic function. Blood cultures grew gram-positive cocci in clusters and PCR was positive for MRSA. She was therefore started on IV vancomycin and also continued on IV cefepime. Infectious disease was consulted. She had repeat blood cultures which were negative. She also had KANDY which showed no evidence of vegetation. Cardiology was consulted in light of her having a pacemaker. Cardiology recommended continuation of her medications for nonischemic cardiomyopathy. ID reviewed patient and recommended continuation of IV vancomycin for 6 weeks with a stop date of 01/02/2025 and to have weekly labs done. Per ID in light of her having cardiac device in place will need to consider longer-term suppressive p.o. antibiotics. She is follow-up with her primary care doctor and with infectious disease within 1 to 2 weeks. Patient was seen and examined prior to discharge. She had no active complaints. She had an uneventful night. Review of symptoms otherwise negative. Labs and vitals reviewed. Home medications reviewed and reconciled. Physical Exam Const alert, oriented x3 and no apparent distress General Appearance: cooperative and comfortable Orientation / Consciousness: awake Exam Limitations: no limitations HEENT normocephalic, head/scalp atraumatic, hearing grossly normal bilaterally and moist oral mucous membranes Mouth: oral and palatal mucosa normal Eyes PERRL, EOMs intact bilaterally and conjunctivae normal Neck no lymphadenopathy and supple Resp normal respiratory effort Cardio regular rate, regular rhythm, S1 normal heart sound, S2 normal heart sound and no murmurs GI normal to inspection, nondistended, normoactive bowel sounds, soft to palpation and non-tender Extremity normal to inspection, full ROM and no clubbing, cyanosis or edema Skin no rashes or lesions noted Neuro oriented x3, CN's II-XII intact bilaterally, moves all extremities and no focal motor deficits Sensorium / Orientation: awake and alert Motor Exam: strength 5/5 throughout Psych affect normal Weight / BMI Weight Weight: 274 lb 0.553 oz Body Mass Index (BMI) 40.4 ABG / Lab / Microbiology Data 11/25/24 05:24 11/25/24 05:24 Laboratory: Laboratory Results - last 24 hr 11/25/24 17:43: POC Glucose 81 11/25/24 22:49: POC Glucose 270 H 11/26/24 08:53: POC Glucose 215 H Microbiology: Microbiology 11/23/24 08:46 Blood Culture (Wb) - Anticubital Right Blood Culture - Preliminary No growth in 48 hours. 11/20/24 15:03 Blood Culture (Wb) - Venous Blood Culture - Final Staphylococcus aureus 11/20/24 14:33 Blood Culture (Wb) - Anticubital Left Bacteria Detection (PCR) - Final Meth. resistant Staph. aureus 11/20/24 14:33 Blood Culture (Wb) - Anticubital Left Blood Culture - Final Meth. resistant Staph. aureus 11/20/24 14:33 Urine Catheter - Catheter Urine Culture - Final Culture exhibits no growth. 11/20/24 05:15 Mucosa - Nasopharyngeal Respiratory Panel (PCR) - Final 11/20/24 14:33 Mucosa - Nose SARS-CoV-2, Influenza & RSV (PCR) - Final D/C Instructions Discharge Diet: Low fat / Low cholesterol Discharge Activity: Return to Normal Activity Weight Bearing Status: Weight bearing as tolerated Call your doctor if you observe: Fever of 101 or Higher, Shortness of breath and Swelling in the ankles DC O2, CPAP, BIPAP Needs Home O2 Discharge instructions: No Meaningful Use Info Meaningful Use Meaningful Use Diagnoses (Choose all that apply): None applicable Ischemic Stroke Statin Dosing Therapy Reference: STATIN DOSE THERAPY REFERENCE: * Patients > 75 years receive moderate or high dose statin therapy. * Patients 75 years or YOUNGER should receive HIGH intensity statin dose unless contraindicated. You will be required to document reason for non-treatment if statin daily dose does not meet guidelines. HIGH DOSE STATIN THERAPY DAILY Atorvastatin > than or = to 40 mg Rosuvastatin > than or = to 20 mg Amlodipine + Atorvastatin > than or = to 2.5/40 mg Ezetimibe + Simvastatin 10/80 mg Simvastatin 80mg Discharge Plan Admission Admit Date/Time: 11/20/24 18:37 Primary Reason for Your Visit: MRSA bacteremia Attending Provider: Denisse Guan Primary Care Provider: Lisseth Peñaloza Consulting Providers: Mariah Brewer; Karthik Tang; Clifton Alexander; Clifford Cody; Deon Mcclellan; Mauricio Hunt; Rajan De La Cruz; Scout Curry; Glenys Mcmahan; Pedro Luis Lal; Jamar Chi; Jesus Varela; Lara Durant; Sigrid Adkins; Camila Mclean; John,Guilherme; Dada Tidwell; Mario Keller; Flash Newton; Lida Falcon; Jhony Zhang; Varun Collier; Yusuf Field; Mello Paulino; Jean Trujillo; Michel Haq; Haider Smith Instructions Patient Instructions: ED Bacteremia, Suspected (Adult) Discharge Orders/Prescriptions Prescriptions: New vancomycin 1.75 gram recon soln 1.75 g IV Q12H 39 Days Rx Instructions: stop date 01/02/25. Dx: MRSA bacteremia. Weekly bmp, cbc, and vanc trough. Fax to [phone]. Routine picc care per protocol. No Action docusate sodium [Colace] 100 mg capsule 100 mg PO BID PRN (Reason: constipation) spironolactone 25 mg tablet 25 mg PO DAILY Qty: 30 11RF (DME) CareFine Pen Needle 30 gauge x 5/16 needle See Dose Instructions .ROUTE .MEDSUPPLY Qty: 120 11RF Dose Instruction: As directed Rx Instructions: use with insulin pen 4 x qd (DME) insulin syringe-needle U-100 [BD Insulin Syringe Ultra-Fine] 0.5 mL 31 gauge x 5/16 syringe See Dose Instructions .ROUTE .MEDSUPPLY Qty: 90 11RF Dose Instruction: As directed Rx Instructions: use to inject insulin tid insulin lispro 100 unit/mL insulin pen 30 unit subcut TID Rx Instructions: 10 u w/ snacks (DME) FreeStyle Lance 3 Fortescue [facility] See Rx Instructions .Route Qty: 1 0RF Rx Instructions: As directed (DME) FreeStyle Lance 3 Plus Sensor Device See Rx Instructions .Route Qty: 2 5RF Rx Instructions: 1 sensor q 15 Trulicity 1.5 mg/0.5 mL pen injector 1.5 mg subcut QWEEK Qty: 2 3RF (DME) OneTouch Verio test strips Strip See Rx Instructions .Route Qty: 100 0RF Rx Instructions: 4x/day (DME) 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 meter [OneTouch Verio Reflect Meter] Misc See Rx Instructions .Route Qty: 1 0RF Rx Instructions: As directed Entresto 24-26 mg tablet 1 tab PO BID Qty: 60 11RF insulin glargine [Lantus Solostar U-100 Insulin] 100 unit/mL (3 mL) insulin pen 40 unit subcut BID Qty: 30 1RF magnesium oxide 400 mg (241.3 mg magnesium) tablet 400 mg PO BID Qty: 180 1RF Patient Comments: supplement duloxetine 60 mg capsule,delayed release(DR/EC) 60 mg PO BID Qty: 180 1RF cholecalciferol (vitamin D3) 1,250 mcg (50,000 unit) capsule 1,250 mcg PO QWEEK Qty: 12 1RF carvedilol 25 mg tablet 25 mg PO Q12H Qty: 180 1RF Rx Instructions: must administer with a meal/food cetirizine 10 mg capsule 10 mg PO DAILY Qty: 90 1RF atorvastatin [Lipitor] 10 mg tablet 10 mg PO DAILY Qty: 90 0RF gabapentin 300 mg capsule 300 mg PO DAILY Qty: 28 0RF ropinirole 0.5 mg tablet 0.5 mg PO QHS Qty: 90 0RF Rx Instructions: administer 1-3 hours before bedtime pantoprazole [Protonix] 40 mg tablet,delayed release (DR/EC) 40 mg PO BID Qty: 180 0RF Referrals / Follow Up: Lisseth Peñaloza MD [Primary Care Provider] - 12/09/24 11:00 am (Appointment is with STACY DUPONT. ) Michel Haq MD [Med Staff - Active Staff] - Within 1 Week Disposition Disposition (needs filled in before D/C Order can be placed): Home Health Service Charges/Coding Visit Charges Inpatient E&M: 14587 Disch Hosp >30min
--- NOTE | 2024-11-26 14:13 | CASEMGMT ---
AFRICA HASSAN received updated from [facility] that IV atb's are covered at 100% and will be delivered by the end of the day. AFRICA HASSAN updated [facility], start of care planned for tomorrow morning. Patient has order for discharge. AFRICA HASSAN in to discuss discharge plans. AFRICA HASSAN updated regarding [facility] start of care and ATB delivery. Patient denies further needs or concerns. Patient had no further questions or concerns.
[2024-11-26 14:47] VITALS: BP 116/65; PULSE 74; RESP 14; TEMP 36.6; O2SAT 95
[2024-11-26 15:56] LABS: Bedside Glucose 286 mg/dL (74-106)
[2024-11-26 15:56] LABS: Bedside Glucose 275 mg/dL (74-106)
== END 2024-11-26 14:52 | disposition home health service (06) | DRG 871 ==
LOC: ED 16:20 → ICU 20:43 → PCU 11-22 12:25
PROVIDERS: Internal Medicine; Admitting Provider Internal Medicine; Emergency Provider Emergency Medicine; PCP Internal Medicine; Visit Provider Student in an Organized Health Care Education/Training Program
DX: A41.9 Sepsis, unspecified organism (principal); R65.21 Severe sepsis with septic shock; E87.20 Acidosis, unspecified; Z68.41 Body mass index [BMI] 40.0-44.9, adult; E87.1 Hypo-osmolality and hyponatremia; I11.0 Hypertensive heart disease with heart failure; E11.40 Type 2 diabetes mellitus with diabetic neuropathy, unspecified; G25.81 Restless legs syndrome; K21.9 Gastro-esophageal reflux disease without esophagitis; M46.46 Discitis, unspecified, lumbar region; I25.5 Ischemic cardiomyopathy; I50.9 Heart failure, unspecified; E78.5 Hyperlipidemia, unspecified; E11.65 Type 2 diabetes mellitus with hyperglycemia; Z79.4 Long term (current) use of insulin; S50.312A Abrasion of left elbow, initial encounter; W19.XXXA Unspecified fall, initial encounter; E66.813 Obesity, class 3; Z82.49 Family history of ischemic heart disease and other diseases of the circulatory system; A49.02 Methicillin resistant Staphylococcus aureus infection, unspecified site; Z91.040 Latex allergy status; Z91.048 Other nonmedicinal substance allergy status; Z88.8 Allergy status to other drugs, medicaments and biological substances; Z79.02 Long term (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 of antithrombotics/antiplatelets; Z79.899 Other long term (current) drug therapy; Z98.890 Other specified postprocedural states; Z90.49 Acquired absence of other specified parts of digestive tract
CPT/HCPCS: 36415; 36569; 70450; 71045; 72131; 74177; 80048; 80053; 80202; 81001; 82962; 83605; 84145; 85025; 85610; 85652; 85730; 86140; 87040; 87077; 87086; 87149; 87186; 87631; 87633; 93005; 93306; 93312; 93320; 93325; 97116; 97161; 97166; 97530; 97535; 97802; 97803; 99285; P9047; Q9957; Q9967; A4216; C8929; J2405

== ENCOUNTER 2024-11-27 21:27 | Emergency (ER) | payer MEDICAID, SELFPAY ==
[2024-11-27 21:28] VITALS: BP 167/71; PULSE 78; RESP 15; TEMP 36.4; O2SAT 99; BMI 39.7
--- NOTE | 2024-11-27 21:37 | EX.ED.DYSGE1 ---
HPI History of Present Illness Chief Complaint: General Illness Informant: patient Onset/Context/Timing Onset: Today Context: Sudden Onset Timing: Continuous Worsened by: Nothing Relieved by: Nothing Narrative Narrative: Patient presents because her PICC line is not working. Patient states that her home health nurse was unable to use it this morning and the evening home health nurse also noted that she was unable to flush anything through the PICC line. Patient was then referred to the emergency department. Patient denies any fevers or chills. Patient is getting IV vancomycin for MRSA bacteremia. Patient does admit to some mild pain in her chest and shortness of breath. Patient also admits to a mild headache. [facility] Medical History MRSA (methicillin resistant staph aureus) culture positive Cardiomyopathy, ischemic Vitamin D deficiency Neuropathy History of placement of internal cardiac defibrillator (09/03/13) GERD (gastroesophageal reflux disease) Anxiety Obesity Type 2 diabetes mellitus with diabetic neuropathy, unspecified Chest pain Heart disease Headache Arthritis Seasonal allergies Nonischemic dilated cardiomyopathy Gout Pulmonary HTN Hyperlipidemia RLS (restless legs syndrome) HTN (hypertension) Home Medications ?Medication ?Instructions ?Recorded ?Last Taken ?Type docusate sodium 100 mg capsule 100 mg PO BID PRN constipation 05/06/24 Unknown History (Colace) CareFine Pen Needle 30 gauge x #120 ea 05/29/24 Unknown Rx 5/16 (pen needle, diabetic) insulin syringe-needle U-100 0.5 #90 ea 05/29/24 Unknown Rx mL 31 gauge x 5/16 (BD Insulin Syringe Ultra-Fine) sacubitril 24 mg-valsartan 26 mg 1 tab PO BID #60 tabs 06/03/24 Unknown Rx tablet (Entresto) blood sugar diagnostic (OneTouch #100 ea 10/15/24 Unknown Rx Verio test strips) 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 meter (OneTouch #1 ea 10/15/24 Unknown Rx Verio Reflect Meter) 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 sensor (FreeStyle #2 ea 10/15/24 Unknown Rx Lance 3 Plus Sensor device) 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,solar photovoltaic installer,cont #1 ea 10/15/24 Unknown Rx (FreeStyle Lance 3 [place]) dulaglutide 1.5 mg/0.5 mL 1.5 mg (0.5 mL) subcut QWEEK #2 mL 10/15/24 Unknown Rx subcutaneous pen injector (Trulicity) insulin lispro 100 unit/mL 30 unit subcut TID dm 10/19/24 Unknown History subcutaneous pen insulin glargine 100 unit/mL (3 40 unit (0.4 mL) subcut BID #30 mL 10/21/24 Unknown Rx mL) subcutaneous pen (Lantus Solostar U-100 Insulin) atorvastatin 10 mg tablet (Lipitor) 10 mg PO DAILY cholesterol #90 tabs 10/22/24 Unknown Rx carvedilol 25 mg tablet 25 mg PO Q12H #180 tabs 10/22/24 Unknown Rx cetirizine 10 mg capsule 10 mg PO DAILY #90 caps 10/22/24 Unknown Rx cholecalciferol (vitamin D3) 1,250 1,250 mcg PO QWEEK #12 caps 10/22/24 Unknown Rx mcg (50,000 unit) capsule duloxetine 60 mg capsule,delayed 60 mg PO BID #180 caps 10/22/24 Unknown Rx release magnesium oxide 400 mg (241.3 mg 400 mg PO BID #180 tabs 10/22/24 Unknown Rx magnesium) tablet gabapentin 300 mg capsule 300 mg PO DAILY #28 caps 10/29/24 Unknown Rx spironolactone 25 mg tablet 25 mg PO DAILY #30 tabs 11/04/24 Unknown Rx pantoprazole 40 mg tablet,delayed 40 mg PO BID #180 tabs 11/19/24 Unknown Rx release (Protonix) ropinirole 0.5 mg tablet 0.5 mg PO QHS #90 tabs 11/19/24 Unknown Rx vancomycin 1.75 gram intravenous 1.75 g IV Q12H 39 days 11/25/24 Unknown Rx solution Allergy/AdvReac Type Severity Reaction Status Date / Time simvastatin Allergy Severe Myalgia Verified 11/27/24 21:28 Latex, Natural Rubber Allergy Unknown Rash Verified 11/27/24 21:28 metformin Allergy Other Verified 11/27/24 21:28 adhesive tape AdvReac Severe Rash Verified 11/27/24 21:28 Family History Father Heart disease Myocardial infarction CAD (coronary artery disease) Mother CAD (coronary artery disease) Heart disease Cancer breast Grandmother Colon cancer Daughter Breast cancer Surgical History History of left heart catheterization Hx of appendectomy H/O colectomy History of hysteroscopy Social History household members: family and other details: ex mother in law , ex housing: house current occupational status: disabled 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 Smoking Status: Never smoker second hand exposure: No alcohol intake: never substance use type: does not use what type of physical activity do you participate in: none seatbelt use: always do you feel safe at home: Yes ROS ROS ED Constitutional Constitutional ED: Denies chills or fever(s) Eyes Eyes: Denies blurry vision or change in vision ENT ENT ED: Denies rhinorrhea or sore throat Cardiovascular Cardiovascular: Reports chest pain; Denies palpitations Respiratory/Chest Respiratory/Chest: Reports dyspnea; Denies cough Gastrointestinal Gastrointestinal: Denies nausea or vomiting Genitourinary Genitourinary ED: Denies dysuria or hematuria Musculoskeletal Musculoskeletal: Denies back pain or neck pain Integumentary Denies abscess or rash Neurologic Neurologic: Reports headache(s); Denies weakness Allergic/Immunologic Allergic/Immunologic ED: Denies mouth swelling or urticaria EXAM Physical Exam Const Vital Signs: 11/27/24 21:28 Temperature 97.5 F L Temperature Source Temporal Pulse Rate 78 Respiratory Rate 15 Blood Pressure 167/71 H Blood Pressure Mean 103 Pulse Ox 99 Oxygen Delivery Method Room Air Positive well nourished and well developed Constitutional Narrative: BMI is 39.7 General Appearance ED: well developed and NAD HEENT Reports moist mucous membranes Neck supple and no JVD Resp normal respiratory effort and clear to auscultation bilaterally Cardio regular rate and regular rhythm GI non-tender and non-distended Palpation: soft Extremity Extremity Narrative: The PICC line site over the left upper arm is clean. There is no erythema or drainage. Dressing is in place. There is no tenderness over the PICC line site. There is full range of motion of the left upper extremity. Neuro oriented x3, CN's II-XII intact bilaterally and no sensory deficits noted Sensorium / Orientation: alert Motor Exam: strength 5/5 throughout Psych mental status grossly normal Skin no rashes or lesions noted MDM MDM MDM Narrative Medical decision making narrative: Differential diagnosis includes pneumonia, pneumothorax, and occluded PICC line. Chest x-ray will be obtained to assess for pneumonia and pneumothorax. History & Record Review Additional record(s) reviewed:: Prior inpatient record, Prior ED visit and Prior labs Radiography Chest X-Ray - ED: 2 View, Read by ED Physician, Read by Radiologist and No Acute Disease Diagnostic Testing: Clinical Impression(s) from Imaging Studies Chest X-Ray 11/27/24 21:55 IMPRESSION: No acute cardiopulmonary process. Reading Location: [facility] PA and lateral chest x-ray was obtained. There are 2 views. On my independent interpretation, lung barroso are clear. There is normal cardiac silhouette. Bony thorax is normal. There is no acute process noted. Radiologist also interpreted the x-ray and agrees. Treatment and Re-Evaluation :: Cathflo Activase was infused by nursing alteration workroom supervisor. PICC line was able to be flushed. Patient was instructed to continue her antibiotics as prescribed. Patient was instructed to follow-up with her primary care physician in 5 to 7 days. Patient understood and was agreeable with the plan. All questions were answered. Discharge Plan Triage Chief Complaint: General Illness ED Provider: Haider Valdes Dx/Rx/DC Orders Clinical Impression: Occlusion of peripherally inserted central catheter (PICC) line, MRSA bacteremia, HTN (hypertension) Instructions: MRSA Prescriptions: No Action docusate sodium [Colace] 100 mg capsule 100 mg PO BID PRN (Reason: constipation) spironolactone 25 mg tablet 25 mg PO DAILY Qty: 30 11RF (DME) CareFine Pen Needle 30 gauge x 5/16 needle See Dose Instructions .ROUTE .MEDSUPPLY Qty: 120 11RF Dose Instruction: As directed Rx Instructions: use with insulin pen 4 x qd (DME) insulin syringe-needle U-100 [BD Insulin Syringe Ultra-Fine] 0.5 mL 31 gauge x 5/16 syringe See Dose Instructions .ROUTE .MEDSUPPLY Qty: 90 11RF Dose Instruction: As directed Rx Instructions: use to inject insulin tid insulin lispro 100 unit/mL insulin pen 30 unit subcut TID Rx Instructions: 10 u w/ snacks (DME) FreeStyle Lance 3 [place] Misc See Rx Instructions .Route Qty: 1 0RF Rx Instructions: As directed (DME) FreeStyle Lance 3 Plus Sensor Device See Rx Instructions .Route Qty: 2 5RF Rx Instructions: 1 sensor q 15 Trulicity 1.5 mg/0.5 mL pen injector 1.5 mg subcut QWEEK Qty: 2 3RF (DME) OneTouch Verio test strips Strip See Rx Instructions .Route Qty: 100 0RF Rx Instructions: 4x/day (DME) 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 meter [OneTouch Verio Reflect Meter] Misc See Rx Instructions .Route Qty: 1 0RF Rx Instructions: As directed vancomycin 1.75 gram recon soln 1.75 g IV Q12H 39 Days Rx Instructions: stop date 01/02/25. Dx: MRSA bacteremia. Weekly bmp, cbc, and vanc trough. Fax to [phone]. Routine picc care per protocol. Entresto 24-26 mg tablet 1 tab PO BID Qty: 60 11RF insulin glargine [Lantus Solostar U-100 Insulin] 100 unit/mL (3 mL) insulin pen 40 unit subcut BID Qty: 30 1RF magnesium oxide 400 mg (241.3 mg magnesium) tablet 400 mg PO BID Qty: 180 1RF Patient Comments: supplement duloxetine 60 mg capsule,delayed release(DR/EC) 60 mg PO BID Qty: 180 1RF cholecalciferol (vitamin D3) 1,250 mcg (50,000 unit) capsule 1,250 mcg PO QWEEK Qty: 12 1RF carvedilol 25 mg tablet 25 mg PO Q12H Qty: 180 1RF Rx Instructions: must administer with a meal/food cetirizine 10 mg capsule 10 mg PO DAILY Qty: 90 1RF atorvastatin [Lipitor] 10 mg tablet 10 mg PO DAILY Qty: 90 0RF gabapentin 300 mg capsule 300 mg PO DAILY Qty: 28 0RF ropinirole 0.5 mg tablet 0.5 mg PO QHS Qty: 90 0RF Rx Instructions: administer 1-3 hours before bedtime pantoprazole [Protonix] 40 mg tablet,delayed release (DR/EC) 40 mg PO BID Qty: 180 0RF Primary Care Provider: Lisseth Peñaloza Referrals: Lisseth Peñaloza MD [Primary Care Provider] - 5-7 Days Print Language: German Disposition Disposition: Home, Self Care
--- NOTE | 2024-11-27 21:55 | RAD_ITS ---
EXAM: XR Chest, 2 Views CLINICAL INDICATION: CHEST PAIN TECHNIQUE: Frontal and lateral views of the chest. COMPARISON: No relevant prior studies available. FINDINGS: LUNGS AND PLEURAL SPACES: Unremarkable. No consolidation. No pneumothorax. HEART: Unremarkable. No cardiomegaly. MEDIASTINUM: Unremarkable. Normal mediastinal contour. BONES/JOINTS: Unremarkable. No acute fracture. TUBES, LINES AND DEVICES: Left-sided cardiac pacemaker. RAD/Chest PA and Lateral IMPRESSION: No acute cardiopulmonary process. Reading Location: [id number]
[2024-11-27] MEDS: Alteplase 2 MG/2 ML Vial IV (22:24)
[2024-11-28 00:28] VITALS: BP 158/72; PULSE 71; RESP 18; O2SAT 94
--- NOTE | 2024-11-28 01:17 | ED.RN ---
PT BROUGHT VANCOMYCIN FROM HOME. ADMINISTERING DOSE HERE PRIOR TO D/C PER DR VAZQUEZ. EDUCATED PT ON ADMINISTERING IV MEDICATION INTO HER PICC LINE.
[2024-11-28 02:00] VITALS: BP 162/85; PULSE 79; RESP 14; O2SAT 95
[2024-11-28 03:21] VITALS: BP 148/71; PULSE 81; RESP 16; TEMP 36.7; O2SAT 99
== END 2024-11-28 03:21 | disposition home or self-care (01) ==
PROVIDERS: Emergency Provider Emergency Medicine; PCP Internal Medicine; Visit Provider Emergency Medicine
DX: T82.514A Breakdown (mechanical) of infusion catheter, initial encounter (principal); E11.40 Type 2 diabetes mellitus with diabetic neuropathy, unspecified; R78.81 Bacteremia; R06.02 Shortness of breath; R51.9 Headache, unspecified; B95.62 Methicillin resistant Staphylococcus aureus infection as the cause of diseases classified elsewhere; E78.5 Hyperlipidemia, unspecified; I10 Essential (primary) hypertension; K21.9 Gastro-esophageal reflux disease without esophagitis; Z79.899 Other long term (current) drug therapy; R07.9 Chest pain, unspecified; Y71.8 Miscellaneous cardiovascular devices associated with adverse incidents, not elsewhere classified
CPT/HCPCS: 71046; 99282; J2997; A4216

== ENCOUNTER 2024-12-01 12:02 | Outpatient (CLI) | payer MEDICAID, SELFPAY ==
[2024-12-01] MEDS: Alteplase 2 MG/2 ML Vial IV (13:20)
== END 2024-12-01 23:59 | disposition home or self-care (01) ==
LOC: MEDOUTP 12:03
PROVIDERS: PCP Internal Medicine; Referring Provider Internal Medicine Infectious Disease; Visit Provider Internal Medicine Infectious Disease
DX: Z45.2 Encounter for adjustment and management of vascular access device (principal)
CPT/HCPCS: 36593; J2997; A4216

== ENCOUNTER → 2024-12-01 | Outpatient (CLI) | payer MEDICAID, SELFPAY ==
[2024-12-01 12:29] LABS: Hematocrit 34.2 % (37-47); Mean Corp Hgb Conc 32.2 g/dL (32-36); Mean Corpuscular Hgb 29.3 pg (27.0-32.0); Mean Corpuscular Volume 91.2 fL (81-99); Mean Platelet Vol. 10.4 fl (6.2-12.0); Platelet Count 221 K/mm3 (150-450); RBC Distribution Width CV 14.5 % (11.6-14.6); RBC Distribution Width SD 47.8 fl (35.1-43.9); Red Blood Count 3.75 M/mm3 (4.2-5.4); White Blood Count 7.9 K/mm3 (4.4-11.0)
[2024-12-01 12:48] LABS: Vancomycin, Trough Level 19.9 ug/mL (5.0-15.0)
[2024-12-01 12:54] LABS: Anion Gap 10 (5-15); BUN 9 mg/dL (4-19); BUN/Creat Ratio 14.1 RATIO (10-20); Calcium,Total 9.5 mg/dL (7.6-11.0); Carbon Dioxide 25.7 mmol/L (21.0-32.0); Chloride 100 mmol/L (98-108); Creatinine, Serum 0.65 mg/dL (0.70-1.20); EST Glomerular Filtration Rate 102 (>60); Glucose 183 mg/dL (70-99); Potassium 4.3 mmol/L (3.3-5.1); Sodium Level 136 mmol/L (133-145)
== END | disposition home or self-care (01) ==
LOC: LABSPEC 09:42
PROVIDERS: PCP Internal Medicine; Visit Provider Internal Medicine Infectious Disease
DX: R78.81 Bacteremia (principal); B95.62 Methicillin resistant Staphylococcus aureus infection as the cause of diseases classified elsewhere
CPT/HCPCS: 80048; 80202; 85027

== ENCOUNTER → 2024-12-08 | Outpatient (CLI) | payer MEDICAID, SELFPAY ==
[2024-12-08 12:23] LABS: Hematocrit 36.8 % (37-47); Hemoglobin 11.7 g/dL (12.0-15.0); Mean Corp Hgb Conc 31.8 g/dL (32-36); Mean Corpuscular Volume 91.1 fL (81-99); Mean Platelet Vol. 11.2 fl (6.2-12.0); Platelet Count 167 K/mm3 (150-450); RBC Distribution Width SD 46.3 fl (35.1-43.9); Red Blood Count 4.04 M/mm3 (4.2-5.4)
[2024-12-08 12:43] LABS: Vancomycin, Trough Level 16.1 ug/mL (5.0-15.0)
[2024-12-08 13:15] LABS: Anion Gap 14 (5-15); BUN 12 mg/dL (4-19); BUN/Creat Ratio 14.4 RATIO (10-20); Calcium,Total 9.4 mg/dL (7.6-11.0); Carbon Dioxide 21.2 mmol/L (21.0-32.0); Chloride 99 mmol/L (98-108); Creatinine, Serum 0.86 mg/dL (0.70-1.20); EST Glomerular Filtration Rate 79 (>60); Glucose 334 mg/dL (70-99); Potassium 4.3 mmol/L (3.3-5.1); Sodium Level 135 mmol/L (133-145)
== END | disposition home or self-care (01) ==
LOC: LABSPEC 10:15
PROVIDERS: PCP Internal Medicine; Visit Provider Internal Medicine Infectious Disease
DX: R78.81 Bacteremia (principal); B95.62 Methicillin resistant Staphylococcus aureus infection as the cause of diseases classified elsewhere
CPT/HCPCS: 80048; 80202; 85027

== ENCOUNTER → 2024-12-15 | Outpatient (CLI) | payer MEDICAID, SELFPAY ==
[2024-12-15 12:22] LABS: Hematocrit 37.2 % (37-47); Hemoglobin 11.9 g/dL (12.0-15.0); Mean Corpuscular Hgb 29.2 pg (27.0-32.0); Mean Corpuscular Volume 91.4 fL (81-99); Mean Platelet Vol. 10.8 fl (6.2-12.0); Platelet Count 142 K/mm3 (150-450); RBC Distribution Width CV 14.4 % (11.6-14.6); RBC Distribution Width SD 47.7 fl (35.1-43.9); Red Blood Count 4.07 M/mm3 (4.2-5.4); White Blood Count 7.7 K/mm3 (4.4-11.0)
[2024-12-15 12:44] LABS: Vancomycin, Trough Level 18.5 ug/mL (5.0-15.0)
[2024-12-15 13:18] LABS: Anion Gap 11 (5-15); BUN 14 mg/dL (4-19); BUN/Creat Ratio 17.3 RATIO (10-20); Calcium,Total 9.4 mg/dL (7.6-11.0); Carbon Dioxide 23.7 mmol/L (21.0-32.0); Chloride 101 mmol/L (98-108); EST Glomerular Filtration Rate 85 (>60); Glucose 214 mg/dL (70-99); Potassium 4.5 mmol/L (3.3-5.1); Sodium Level 137 mmol/L (133-145)
== END | disposition home or self-care (01) ==
LOC: LABSPEC 11:00
PROVIDERS: PCP Internal Medicine; Visit Provider Internal Medicine Infectious Disease
DX: R78.81 Bacteremia (principal); B95.62 Methicillin resistant Staphylococcus aureus infection as the cause of diseases classified elsewhere
CPT/HCPCS: 80048; 80202; 85027

== ENCOUNTER 2024-12-20 17:42 | Inpatient (IN) | payer MEDICAID, SELFPAY ==
[2024-12-20] VITALS (8 sets, daily range): BP systolic 115–164; BP diastolic 54–98; PULSE 123–133; RESP 15–22; TEMP 36.8–37.9; O2SAT 94–99; BMI 37.7; BMI 37.8
--- NOTE | 2024-12-20 18:07 | EKG12_ITS ---
Test Reason : Blood Pressure : */* mmHG Vent. Rate : 125 BPM Atrial Rate : 125 BPM P-R Int : 126 ms QRS Dur : 166 ms QT Int : 380 ms P-R-T Axes : * -33 -49 degrees QTcB Int : 548 ms Atrial-sensed ventricular-paced rhythm Biventricular pacemaker detected Abnormal ECG Confirmed by Dominick Hinkle ([id number]), pictures editor RYLEE [place] ([id number]) on 12/22/2024 6:17:04 AM Referred By: Hannah Nevarez Confirmed By: Dominick Hinkle
[2024-12-20] MEDS: 0.9% Normal Saline (1000mL) 1,000 ML 999 ML IV ×2 (18:41→21:38)
[2024-12-20] MEDS: Ketorolac 15 MG/ML Vial IV (18:41)
[2024-12-20] MEDS: Ondansetron 4 MG/2 ML Vial IV (18:41)
[2024-12-20 18:53] LABS: Absolute Lymphocyte Count 0.75 X10^3/uL (0.83-4.51); Absolute Neutrophil Count 8.7 X10^3/uL (2.0-7.7); Basophil# 0.05 X10^3/uL; Basophil% 0.5 % (0-1); Eosinophil# 0.03 X10^3/uL; Eosinophils% 0.3 % (0-5); Hemoglobin 14.2 g/dL (12.0-15.0); Lymphocyte # 0.75 X10^3/ul (0.83-4.51); Lymphocyte % 7.4 % (19-41); Mean Corp Hgb Conc 33.8 g/dL (32-36); Mean Corpuscular Hgb 29.8 pg (27.0-32.0); Mean Corpuscular Volume 88.2 fL (81-99); Mean Platelet Vol. 9.6 fl (6.2-12.0); Monocyte# 0.55 X10^3/uL; Monocyte% 5.4 % (0-10); NRBC Flagged by Analyzer 0 % (0-5); Neutrophil # 8.67 X10^3/uL (2.7-7.7); Neutrophil % 85.9 % (47-70); Platelet Count 147 K/mm3 (150-450); RBC Distribution Width CV 14.5 % (11.6-14.6); RBC Distribution Width SD 46.1 fl (35.1-43.9); Red Blood Count 4.76 M/mm3 (4.2-5.4); White Blood Count 10.1 K/mm3 (4.4-11.0)
--- OUTSIDE RECORDS SUMMARY | 2024-12-20 18:59 | XMS RPT_ITS | CCD ---
Author Organization [facility] Inform ion Partnership [facility] Care Team Providers Care Lead Simulation Modeling Engineer Name Role Phone Carmelita Fernandes LPN Unavailable Unavailable VICKI, LETICIA PAC Unavailable Unavailable VICKI, LETICIA PAC Unavailable Unavailable VICKI, LETICIA PAC Unavailable Unavailable MEHRDAD MARTINEZ MD Unavailable Unavailable PROVIDER, UNKNOWN Unavailable Unavailable PROVIDER, UNKNOWN Unavailable Unavailable PROVIDER, UNKNOWN Unavailable Unavailable Ha Avelar Primary Care Provider [phone] No, Physician Primary Care Provider Unavailabl e No, Physician Primary Care Provider Unavailabl e No, Physician Primary Care Provider Unavailabl e Ha Vasquez Care Team Information Receive r Alberto MED SPA MANAGER, Abbey Care Team Information Receive r Alberto MED SPA MANAGER, Abbey Care Team Information Receive r SLY NIX DPM Care Team Information Receiv er Ha Vasquez Primary Care Physician Ha Vasquez Care Team Information Receive r Alberto MED SPA MANAGER, Abbey Care Team Information Receive r Alberto MED SPA MANAGER, Abbey Care Team Information Receive r SLY NIX DPM Care Team Information Receiv er Ha Vasquez Primary Care Physician Ha Vasquez Care Team Information Receive r Alberto MED SPA MANAGER, Abbey Care Team Information Receive r Alberto MED SPA MANAGER, Abbey Care Team Information Receive r SLY NIX DPM Care Team Information Receiv er Ha Vasquez Primary Care Physician Evelyn DURAN, Ha Care Team Information Receive r Alberto MED SPA MANAGER, Abbey Care Team Information Receive r Alberto MED SPA MANAGER, Abbey Care Team Information Receive r BOYD KEARNEYM, SLY F Care Team Information Receiv er Evelyn DURAN, Ha Primary Care Physician Evelyn DURAN, Ha Care Team Information Receive r Alberto MED SPA MANAGER, Abbey Care Team Information Receive r Alberto MED SPA MANAGER, Abbey Care Team Information Receive r BOYD KEARNEYM, SLY F Care Team Information Receiv er Evelyn DURAN, Ha Primary Care Physician Evelyn DURAN, Ha Care Team Information Receive r Alberto MED SPA MANAGER, Abbey Care Team Information Receive r OR - Seormc - Nubia Care Team Information Receive r Alberto MED SPA MANAGER, Abbey Care Team Information Receive r BOYD MARI, SLY F Care Team Information Receiv er Ha Vasquez Primary Care Physician Janice Zuniga Unavailable Mari Manuel Unavailable Ike Mar Unavailable Evelyn MEJIA FAT PRESSROOM WORKER-C, Ha Primary Care Provider Skyler MEJIA CNP, Cam E Unavailable BOYD MARI, SLY F Care Team Information Receiv er Evelyn MEJIA FAT PRESSROOM WORKER-C, Ha Primary Care Provider No, Physician Primary Care Provider Unavailabl e Unavailable Primary Care Provider UnavailMILKA Cevallos Referring Unavailable RUY Avelar Primary Care Provider RUY Avelar Attending Provider Boyd DPM, DPM Sly Hernandez Attending Provider DO Abhinav Nicole DO Emergency Provider [phone] Boyd DPM, DPM Sly Hernandez Attending Provider [phone] NICK BRANCH Attending Unavailabl e NO, PHYSICIAN Primary Care Unavailable NO, PHYSICIAN Primary Care Unavailable NICK BRANCH Attending Unavailabl e NO, PHYSICIAN Primary Care Unavailable KATE ROSARIO Attending Unavailable NO, PHYSICIAN Primary Care Unavailable KATE ROSARIO Attending Unavailable SYLVESTER, MOHAMMAD Attending Unavailable EVELYN, HA Primary Care Unavailable SYLVESTER, MOHAMMAD Referring Unavailable SYLVESTER, MOHAMMAD Attending Unavailable EVELYN, HA Primary Care Unavailable EVELYN, HA Attending Unavailable EVELYN, HA Primary Care Unavailable CAM QUARLES Attending Unavailable EVELYN, HA Primary Care Unavailable WALDEMAR CHERRY Attending Unavailable EVELYN, HA Primary Care Unavailable EVELYN, HA Attending Unavailable EVELYN, HA Primary Care Unavailable EVELYN, HA Attending Unavailable EVELYN, HA Primary Care Unavailable EVELYN, HA Attending Unavailable SYLVESTER, MOHAMMAD Attending Unavailable EVELYN, HA Primary Care Unavailable EVELYN, HA Referring Unavailable EVELYN, HA Primary Care Unavailable SYLVESTER, MOHAMMAD Attending Unavailable Lisa Aj MD Attending Unavailable Evelyn, Ha A. Primary Care Unavailable Sylvester, Mohammanaomi Kraft Attending Unavailable Evelyn, Ha A. Primary Care Unavailable Evelyn, Ha A. Primary Care Unavailable Abhinav Nicole DO Attending Unavailable Boyd DPM, Sly Hernandez Attending Unavailable Evelyn, Ha A. Primary Care Unavailable Vlad Alaniz MD Attending Unavailable Evelyn, Ha A. Primary Care Unavailable Evelyn, Ha A. Attending Unavailable Evelyn, Ha A. Primary Care Unavailable Evelyn, Ha A. Attending Unavailable Evelyn, Ha A. Primary Care Unavailable Evelyn, Ha A. Attending Unavailable Evelyn, Ha A. Primary Care Unavailable No, Physician Primary Care Provider Unavailabl e ABBEY OLIVEIRA Attending Unavailable NO, PHYSICIAN Primary Care Unavailable NO, PHYSICIAN Primary Care Unavailable [id number] ECRCL 131.01 ml/min Normal 50-250 [facility] Comment on above: Performed By: #### L 500.2500, L100.0100 ####[facility] [address] [place], [address] GAP 10 Normal 5-15 [facility] Comment on above: Performed By: #### L 500.2500, L100.0100 ####[facility] [address] [place], [address] GFR/1.73 sq M.predicted among non-blacks MDRD (S/P/Bld) [Vol rate/Area] 102 mL/min/{1.73_m2} Normal >60 [facility] Comment on above: Result Comment: mL/m in/1.73m2 CKD-EPI Creatinine Equation (2020) Performed By: #### L 500.2500, L100.0100 ####[facility] [address] [place], [address] Glucose [Mass/Vol] 125 mg/dL High 70-99 [facility] Comment on above: Performed By: #### L 500.2500, L100.0100 ####[facility] [address] [place], [address] Potassium [Moles/Vol] 3.6 mmol/L Normal 3.3-5.1 [facility] Comment on above: Performed By: #### L 500.2500, L100.0100 ####[facility] [address] [place], [address] Sodium [Moles/Vol] 141 mmol/L Normal 133-145 [facility] Comment on above: Performed By: #### L 500.2500, L100.0100 ####[facility] [address] [place], [address] Urea nitrogen [Mass/Vol] 5 mg/dL Normal 4-19 [facility] Comment on above: Performed By: #### L 500.2500, L100.0100 ####[facility] [address] [place], [address] Basophil percentageOrdered B y: Haider Smith on 11-25-2024 Basophils/100 WBC (Bld) 0.9 % 0-1 [facility] Bedside Glucoseon 11-25-2024 FINGERSTICK GLU 81 mg/dL Normal 74-106 [facility] Comment on above: Result Comment: ELLIOTT GEMENT OF PATIENT CARE PER NURSING PROTOCOL Performed By: #### L 501.080 ####[facility] [address] [place], [address] FINGERSTICK GLU 198 mg/dL High 74-106 [facility] Comment on above: Result Comment: ELLIOTT GEMENT OF PATIENT CARE PER NURSING PROTOCOL Performed By: #### L 501.080 ####[facility] [address] [place], [address] FINGERSTICK GLU 132 mg/dL High 74-106 [facility] Comment on above: Result Comment: ELLIOTT GEMENT OF PATIENT CARE PER NURSING PROTOCOL Performed By: #### L 501.080 ####[facility] [address] [place], [address] CBC W/Diff, Automatedon 11-12 Absolute Lymph 1.76 X10 3/uL Normal 0.83-4.51 [facility] Comment on above: Performed By: #### L 500.2500, L100.0100 ####[facility] [address] [place], [address] Absolute Neut 2.1 X10 3/uL Normal 2.0-7.7 [facility] Comment on above: Performed By: #### L 500.2500, L100.0100 ####[facility] [address] [place], [address] Basophils/100 WBC (Bld) 0.9 % Normal 0-1 [facility] Comment on above: Performed By: #### L 500.2500, L100.0100 ####[facility] [address] [place], [address] Eosinophils/100 WBC (Bld) 2.1 % Normal 0-5 [facility] Comment on above: Performed By: #### L 500.2500, L100.0100 ####[facility] [address] [place], [address] Erythrocyte distribution width (RBC) [Ratio] 14.4 % Normal 11.6-14.6 [facility] Comment on above: Performed By: #### L 500.2500, L100.0100 ####[facility] [address] [place], [address] Hematocrit (Bld) [Volume fraction] 31.8 % Low 37-47 [facility] Comment on above: Performed By: #### L 500.2500, L100.0100 ####[facility] [address] [place], [address] Hemoglobin (Bld) [Mass/Vol] 10.4 g/dL Low 12.0-15.0 [facility] Comment on above: Performed By: #### L 500.2500, L100.0100 ####[facility] [address] [place], [address] IG% 1.900 High 0.0-0.9 [facility] Comment on above: Result Comment: IG% - Immature Granulocytes (promyelocytes, myelocytes andmetamyelocytes) > 1% indicates that a LEFT SHIFT is Present. Performed By: #### L 500.2500, L100.0100 ####[facility] [address] [place], [address] Lymphocytes/100 WBC (Bld) 37.4 % Normal 19-41 [facility] Comment on above: Performed By: #### L 500.2500, L100.0100 ####[facility] [address] [place], [address] MCH (RBC) [Entitic mass] 29.0 pg Normal 27.0-32.0 [facility] Comment on above: Performed By: #### L 500.2500, L100.0100 ####[facility] [address] [place], [address] MCHC (RBC) [Mass/Vol] 32.7 g/dL Normal 32-36 [facility] Comment on above: Performed By: #### L 500.2500, L100.0100 ####[facility] [address] [place], [address] MCV (RBC) [Entitic vol] 88.6 fL Normal 81-99 [facility] Comment on above: Performed By: #### L 500.2500, L100.0100 ####[facility] [address] [place], [address] Monocytes/100 WBC (Bld) 12.1 % High 0-10 [facility] Comment on above: Performed By: #### L 500.2500, L100.0100 ####[facility] [address] [place], [address] Neutrophils/100 WBC (Bld) 45.6 % Low 47-70 [facility] Comment on above: Performed By: #### L 500.2500, L100.0100 ####[facility] [address] [place], [address] Nucleated RBC (Bld) [#/Vol] 0 10*3/uL Normal 0-5 [facility] Comment on above: Performed By: #### L 500.2500, L100.0100 ####[facility] [address] [place], [address] Platelet mean volume (Bld) [Entitic vol] 10.0 fL Normal 6.2-12.0 [facility] Comment on above: Performed By: #### L 500.2500, L100.0100 ####[facility] [address] [place], [address] Platelets (Bld) [#/Vol] 142 10*3/uL Low 150-450 [facility] Comment on above: Performed By: #### L 500.2500, L100.0100 ####[facility] [address] [place], [address] RBC (Bld) [#/Vol] 3.59 10*6/uL Low 4.2-5.4 [facility] Comment on above: Performed By: #### L 500.2500, L100.0100 ####[facility] [address] [place], [address] RDW SD 46.5 fl High 35.1-43.9 [facility] Comment on above: Performed By: #### L 500.2500, L100.0100 ####[facility] [address] [place], [address] WBC (Bld) [#/Vol] 4.7 10*3/uL Normal 4.4-11.0 [facility] Comment on above: Performed By: #### L 500.2500, L100.0100 ####[facility] [address] [place], [address] Carbon dioxide, total [Moles /volume] in Central venous bloodOrdered By: Haider Smith on 11-25-2024 CO2 [Moles/Vol] 22.0 mmol/L 21.0-32.0 [facility] Chloride assayOrdered By: Alexx Smith on 11-25-2024 Chloride [Moles/Vol] 109 mmol/L High 98-108 [facility] Eosinophil percentageOrdered By: Haider Smith on 11-25-2024 Eosinophils/100 WBC (Bld) 2.1 % 0-5 [facility] Erythrocyte distribution wid th ratioOrdered By: Haider Smith on 11-25-2024 Erythrocyte distribution width (RBC) [Ratio] 14.4 % 11.6-14.6 [facility] Erythrocyte distribution wid th standard deviationOrdered By: Haider Smith on 11-25-2024 Erythrocyte distribution width (RBC) [Ratio] 46.5 fl High 35.1-43.9 [facility] Glomerular filtration rate ( GFR) estimation/1.73 sq m using serum, plasma, or whole bOrdered By: Haider Smith on 11-25-2024 GFR/1.73 sq M.predicted among non-blacks MDRD (S/P/Bld) [Vol rate/Area] 102 mL/min/{1.73_m2} >60 [facility] Hematocrit Auto (Bld) [Volum e fraction]Ordered By: Haider Smith on 11-25-2024 Hematocrit (Bld) [Volume fraction] 31.8 % Low 37-47 [facility] Hemoglobin measurementOrdere d By: Haider Smith on 11-25-2024 Hemoglobin (Bld) [Mass/Vol] 10.4 g/dL Low 12.0-15.0 [facility] Immature granulocytes/100 WB C Auto (Bld)Ordered By: Haider Smith on 11-25-2024 Immature granulocytes/100 WBC (Bld) 1.900 % High 0.0-0.9 [facility] MCV (mean corpuscular volume ) determinationOrdered By: Haider Smith on 11-25-2024 MCV (RBC) [Entitic vol] 88.6 fL 81-99 [facility] Mean corpuscular hemoglobin (MCH) determinationOrdered By: Haider Smith on 11-25-2024 MCH (RBC) [Entitic mass] 29.0 pg 27.0-32.0 [facility] Monocyte percentageOrdered B y: Haider Smith on 11-25-2024 Monocytes/100 WBC (Bld) 12.1 % High 0-10 [facility] Neutrophil percentageOrdered By: Haider Smith on 11-25-2024 Neutrophils/100 WBC (Bld) 45.6 % Low 47-70 [facility] Platelet countOrdered By: Alexx Smith on 11-25-2024 Platelets (Bld) [#/Vol] 142 10*3/uL Low 150-450 [facility] Potassium measurement (mass/ volume)Ordered By: Haider Smith on 11-25-2024 Potassium (Unsp spec) [Mass/Vol] 3.6 mmol/L 3.3-5.1 [facility] RBC Auto (Bld) [#/Vol]Ordere d By: Haider Smith on 11-25-2024 RBC (Bld) [#/Vol] 3.59 10*6/uL Low 4.2-5.4 [facility] Serum creatinine measurement (mass/volume)Ordered By: Haider Smith on 11-25-2024 Creatinine [Mass/Vol] 0.66 mg/dL Low 0.70-1.20 [facility] Serum glucose measurement (m ass/volume)Ordered By: Haider Smith on 11-25-2024 Glucose [Mass/Vol] 125 mg/dL High 70-99 [facility] Serum or plasma calcium johnathon urement (mass/volume)Ordered By: Haider Smith on 11-25-2024 Calcium [Mass/Vol] 8.9 mg/dL 7.6-11.0 [facility] Serum or plasma urea nitroge n measurement (mass/volume)Ordered By: Haider Smith on 11-25-2024 Urea nitrogen [Mass/Vol] 5 mg/dL 4-19 [facility] Sodium levelOrdered By: Haider Smith on 11-25-2024 Sodium [Moles/Vol] 141 mmol/L 133-145 [facility] Trough vancomycin levelOrder ed By: Haider Smith on 11-25-2024 Vancomycin trough [Mass/Vol] 21.2 ug/mL High 5.0-15.0 [facility] Vancomycin, Trough Levelon 0 11-25-2024 VANCO, TROUGH 21.2 ug/mL High 5.0-15.0 [facility] Comment on above: Order Comment: Comme nts: Trough to be drawn 30 mins prior to scheduled [id number] Result Comment: Be mmended goal trough ranges are generally 10-15 mcg/mlfor less severe/complicated infections such as cellulitisor UTI and 15-20 mcg/ml for more severe/complicatedinfections such as bacteremia/sepsis, osteomyelitis,pneumonia or meningitis. Goal trough ranges should takeinto account indication, patient-specific factors andorganism ABBEY.VANCOMYCIN STANDARED DRUG THERAPY TROUGH LEVEL: 5.0 - 15.0 mg/LVANCOMYCIN HIGH INTENSITY THERAPY TROUGH LEVEL: 15.0 - 20.0 mg/LHigh Intensity therapy recommended for serious lifethreatening infections include:- Rzhavbsrnc-Wmmgahmcvtwp-Wggmrkgsq (Ventilator/Healtcare Associated)-SepsisPLEASE CONTACT PHARMACY SERVICES (#0138) FOR INTERPRETATIONOF RESULTS. Performed By: #### L 501.8820 ####[facility] [address] [place], [address] White blood cell (WBC) count Ordered By: Haider Smith on 11-25-2024 WBC (Bld) [#/Vol] 4.7 10*3/uL 4.4-11.0 [facility] Basic Metabolic Profile (BMP )on 11-24-2024 BUN/CRE 9.7 RATIO Low 10-20 [facility] Comment on above: Performed By: #### L 100.0100, L500.2500 ####[facility] [address] [place], [address] Calcium [Mass/Vol] 8.9 mg/dL Normal 7.6-11.0 [facility] Comment on above: Performed By: #### L 100.0100, L500.2500 ####[facility] [address] [place], [address] Chloride [Moles/Vol] 107 mmol/L Normal 98-108 [facility] Comment on above: Performed By: #### L 100.0100, L500.2500 ####[facility] [address] [place], [address] CO2 [Moles/Vol] 22.7 mmol/L Normal 21.0-32.0 [facility] Comment on above: Performed By: #### L 100.0100, L500.2500 ####[facility] [address] [place], [address] Creatinine [Mass/Vol] 0.62 mg/dL Low 0.70-1.20 [facility] Comment on above: Performed By: #### L 100.0100, L500.2500 ####[facility] [address] [place], [address] ECRCL 138.90 ml/min Normal 50-250 [facility] Comment on above: Performed By: #### L 100.0100, L500.2500 ####[facility] [address] [place], [address] GAP 10 Normal 5-15 [facility] Comment on above: Performed By: #### L 100.0100, L500.2500 ####[facility] [address] [place], [address] GFR/1.73 sq M.predicted among non-blacks MDRD (S/P/Bld) [Vol rate/Area] 103 mL/min/{1.73_m2} Normal >60 [facility] Comment on above: Result Comment: mL/m in/1.73m2 CKD-EPI Creatinine Equation (2020) Performed By: #### L 100.0100, L500.2500 ####[facility] [address] [place], [address] Glucose [Mass/Vol] 85 mg/dL Normal 70-99 [facility] Comment on above: Performed By: #### L 100.0100, L500.2500 ####[facility] [address] [place], [address] Potassium [Moles/Vol] 3.9 mmol/L Normal 3.3-5.1 [facility] Comment on above: Performed By: #### L 100.0100, L500.2500 ####[facility] [address] [place], [address] Sodium [Moles/Vol] 140 mmol/L Normal 133-145 [facility] Comment on above: Performed By: #### L 100.0100, L500.2500 ####[facility] [address] [place], [address] Urea nitrogen [Mass/Vol] 6 mg/dL Normal 4-19 [facility] Comment on above: Performed By: #### L 100.0100, L500.2500 ####[facility] [address] [place], [address] Bedside Glucoseon 11-24-2024 FINGERSTICK GLU 99 mg/dL Normal 74-106 [facility] Comment on above: Result Comment: ELLIOTT GEMENT OF PATIENT CARE PER NURSING PROTOCOL Performed By: #### L 501.080 ####[facility] [address] [place], [address] FINGERSTICK GLU 94 mg/dL Normal 74-106 [facility] Comment on above: Result Comment: ELLIOTT GEMENT OF PATIENT CARE PER NURSING PROTOCOL Performed By: #### L 501.080 ####[facility] [address] [place], [address] FINGERSTICK GLU 201 mg/dL High 74-106 [facility] Comment on above: Result Comment: ELLIOTT GEMENT OF PATIENT CARE PER NURSING PROTOCOL Performed By: #### L 501.080 ####[facility] [address] [place], [address] FINGERSTICK GLU 91 mg/dL Normal 74-106 [facility] Comment on above: Result Comment: ELLIOTT GEMENT OF PATIENT CARE PER NURSING PROTOCOL Performed By: #### L 501.080 ####[facility] [address] [place], [address] CBC W/Diff, Automatedon - Absolute Lymph 1.67 X10 3/uL Normal 0.83-4.51 [facility] Comment on above: Performed By: #### L 100.0100, L500.2500 ####[facility] [address] [place], [address] Absolute Neut 2.0 X10 3/uL Normal 2.0-7.7 [facility] Comment on above: Performed By: #### L 100.0100, L500.2500 ####[facility] [address] [place], [address] Basophils/100 WBC (Bld) 0.9 % Normal 0-1 [facility] Comment on above: Performed By: #### L 100.0100, L500.2500 ####[facility] [address] [place], [address] Eosinophils/100 WBC (Bld) 3.0 % Normal 0-5 [facility] Comment on above: Performed By: #### L 100.0100, L500.2500 ####[facility] [address] [place], [address] Erythrocyte distribution width (RBC) [Ratio] 14.4 % Normal 11.6-14.6 [facility] Comment on above: Performed By: #### L 100.0100, L500.2500 ####[facility] [address] [place], [address] Hematocrit (Bld) [Volume fraction] 32.4 % Low 37-47 [facility] Comment on above: Performed By: #### L 100.0100, L500.2500 ####[facility] [address] [place], [address] Hemoglobin (Bld) [Mass/Vol] 10.4 g/dL Low 12.0-15.0 [facility] Comment on above: Performed By: #### L 100.0100, L500.2500 ####[facility] [address] [place], [address] IG% 0.500 Normal 0.0-0.9 [facility] Comment on above: Result Comment: IG% - Immature Granulocytes (promyelocytes, myelocytes andmetamyelocytes) > 1% indicates that a LEFT SHIFT is Present. Performed By: #### L 100.0100, L500.2500 ####[facility] [address] [place], [address] Lymphocytes/100 WBC (Bld) 38.3 % Normal 19-41 [facility] Comment on above: Performed By: #### L 100.0100, L500.2500 ####[facility] [address] [place], [address] MCH (RBC) [Entitic mass] 29.0 pg Normal 27.0-32.0 [facility] Comment on above: Performed By: #### L 100.0100, L500.2500 ####[facility] [address] [place], [address] MCHC (RBC) [Mass/Vol] 32.1 g/dL Normal 32-36 [facility] Comment on above: Performed By: #### L 100.0100, L500.2500 ####[facility] [address] [place], [address] MCV (RBC) [Entitic vol] 90.3 fL Normal 81-99 [facility] Comment on above: Performed By: #### L 100.0100, L500.2500 ####[facility] [address] [place], [address] Monocytes/100 WBC (Bld) 11.0 % High 0-10 [facility] Comment on above: Performed By: #### L 100.0100, L500.2500 ####[facility] [address] [place], [address] Neutrophils/100 WBC (Bld) 46.3 % Low 47-70 [facility] Comment on above: Performed By: #### L 100.0100, L500.2500 ####[facility] [address] [place], [address] Nucleated RBC (Bld) [#/Vol] 0 10*3/uL Normal 0-5 [facility] Comment on above: Performed By: #### L 100.0100, L500.2500 ####[facility] [address] [place], [address] Platelet mean volume (Bld) [Entitic vol] 10.7 fL Normal 6.2-12.0 [facility] Comment on above: Performed By: #### L 100.0100, L500.2500 ####[facility] [address] [place], [address] Platelets (Bld) [#/Vol] 123 10*3/uL Low 150-450 [facility] Comment on above: Performed By: #### L 100.0100, L500.2500 ####[facility] [address] [place], [address] RBC (Bld) [#/Vol] 3.59 10*6/uL Low 4.2-5.4 [facility] Comment on above: Performed By: #### L 100.0100, L500.2500 ####[facility] [address] [place], [address] RDW SD 48.1 fl High 35.1-43.9 [facility] Comment on above: Performed By: #### L 100.0100, L500.2500 ####[facility] [address] [place], [address] WBC (Bld) [#/Vol] 4.4 10*3/uL Normal 4.4-11.0 [facility] Comment on above: Performed By: #### L 100.0100, L500.2500 ####[facility] [address] [place], [address] BC GPC IDon 11-23-2024 BC GPC ID Normal [facility] Comment on above: Performed By: #### L 503.6005, L100.0100, L300.3900, L300.4310, M200.1000, M100.636, L500.4050 ####[facility] [address] [place], [address] Basic Metabolic Profile (BMP )on 11-23-2024 BUN/CRE 12.5 RATIO Normal 10-20 [facility] Comment on above: Performed By: #### L 500.2500, L100.0100 ####[facility] [address] [place], [address] Calcium [Mass/Vol] 8.9 mg/dL Normal 7.6-11.0 [facility] Comment on above: Performed By: #### L 500.2500, L100.0100 ####[facility] [address] [place], [address] Chloride [Moles/Vol] 108 mmol/L Normal 98-108 [facility] Comment on above: Performed By: #### L 500.2500, L100.0100 ####[facility] [address] [place], [address] CO2 [Moles/Vol] 23.3 mmol/L Normal 21.0-32.0 [facility] Comment on above: Performed By: #### L 500.2500, L100.0100 ####[facility] [address] [place], [address] Creatinine [Mass/Vol] 0.63 mg/dL Low 0.70-1.20 [facility] Comment on above: Performed By: #### L 500.2500, L100.0100 ####[facility] [address] [place], [address] ECRCL 135.59 ml/min Normal 50-250 [facility] Comment on above: Performed By: #### L 500.2500, L100.0100 ####[facility] [address] [place], [address] GAP 8 Normal 5-15 [facility] Comment on above: Performed By: #### L 500.2500, L100.0100 ####[facility] [address] [place], [address] GFR/1.73 sq M.predicted among non-blacks MDRD (S/P/Bld) [Vol rate/Area] 103 mL/min/{1.73_m2} Normal >60 [facility] Comment on above: Result Comment: mL/m in/1.73m2 CKD-EPI Creatinine Equation (2020) Performed By: #### L 500.2500, L100.0100 ####[facility] [address] [place], [address] Glucose [Mass/Vol] 79 mg/dL Normal 70-99 [facility] Comment on above: Performed By: #### L 500.2500, L100.0100 ####[facility] [address] [place], [address] Potassium [Moles/Vol] 3.8 mmol/L Normal 3.3-5.1 [facility] Comment on above: Performed By: #### L 500.2500, L100.0100 ####[facility] [address] [place], [address] Sodium [Moles/Vol] 140 mmol/L Normal 133-145 [facility] Comment on above: Performed By: #### L 500.2500, L100.0100 ####[facility] [address] [place], [address] Urea nitrogen [Mass/Vol] 8 mg/dL Normal 4-19 [facility] Comment on above: Performed By: #### L 500.2500, L100.0100 ####[facility] [address] [place], [address] Bedside Glucoseon 11-23-2024 FINGERSTICK GLU 82 mg/dL Normal 74-106 [facility] Comment on above: Result Comment: ELLIOTT GEMENT OF PATIENT CARE PER NURSING PROTOCOL Performed By: #### L 501.080 ####[facility] [address] [place], [address] FINGERSTICK GLU 93 mg/dL Normal 74-106 [facility] Comment on above: Result Comment: ELLIOTT GEMENT OF PATIENT CARE PER NURSING PROTOCOL Performed By: #### L 501.080 ####[facility] [address] [place], [address] FINGERSTICK GLU 92 mg/dL Normal 74-106 [facility] Comment on above: Result Comment: ELLIOTT GEMENT OF PATIENT CARE PER NURSING PROTOCOL Performed By: #### L 501.080 ####[facility] [address] [place], [address] FINGERSTICK GLU 83 mg/dL Normal 74-106 [facility] Comment on above: Result Comment: ELLIOTT GEMENT OF PATIENT CARE PER NURSING PROTOCOL Performed By: #### L 501.080 ####[facility] [address] [place], [address] Blood cultureOrdered By: Justino Haq on 11-23-2024 Bacteria identified Cx Nom (Bld) No growth in 5 days. [facility] CBC W/Diff, Automatedon 11-12 Absolute Lymph 1.32 X10 3/uL Normal 0.83-4.51 [facility] Comment on above: Performed By: #### L 500.2500, L100.0100 ####[facility] [address] [place], [address] Absolute Neut 3.8 X10 3/uL Normal 2.0-7.7 [facility] Comment on above: Performed By: #### L 500.2500, L100.0100 ####[facility] [address] [place], [address] Basophils/100 WBC (Bld) 0.5 % Normal 0-1 [facility] Comment on above: Performed By: #### L 500.2500, L100.0100 ####[facility] [address] [place], [address] Eosinophils/100 WBC (Bld) 2.4 % Normal 0-5 [facility] Comment on above: Performed By: #### L 500.2500, L100.0100 ####[facility] [address] [place], [address] Erythrocyte distribution width (RBC) [Ratio] 14.6 % Normal 11.6-14.6 [facility] Comment on above: Performed By: #### L 500.2500, L100.0100 ####[facility] [address] [place], [address] Hematocrit (Bld) [Volume fraction] 32.7 % Low 37-47 [facility] Comment on above: Performed By: #### L 500.2500, L100.0100 ####[facility] [address] [place], [address] Hemoglobin (Bld) [Mass/Vol] 10.4 g/dL Low 12.0-15.0 [facility] Comment on above: Performed By: #### L 500.2500, L100.0100 ####[facility] [address] [place], [address] IG% 0.300 Normal 0.0-0.9 [facility] Comment on above: Result Comment: IG% - Immature Granulocytes (promyelocytes, myelocytes andmetamyelocytes) > 1% indicates that a LEFT SHIFT is Present. Performed By: #### L 500.2500, L100.0100 ####[facility] [address] [place], [address] Lymphocytes/100 WBC (Bld) 22.9 % Normal 19-41 [facility] Comment on above: Performed By: #### L 500.2500, L100.0100 ####[facility] [address] [place], [address] MCH (RBC) [Entitic mass] 29.0 pg Normal 27.0-32.0 [facility] Comment on above: Performed By: #### L 500.2500, L100.0100 ####[facility] [address] [place], [address] MCHC (RBC) [Mass/Vol] 31.8 g/dL Low 32-36 [facility] Comment on above: Performed By: #### L 500.2500, L100.0100 ####[facility] [address] [place], [address] MCV (RBC) [Entitic vol] 91.1 fL Normal 81-99 [facility] Comment on above: Performed By: #### L 500.2500, L100.0100 ####[facility] [address] [place], [address] Monocytes/100 WBC (Bld) 8.8 % Normal 0-10 [facility] Comment on above: Performed By: #### L 500.2500, L100.0100 ####[facility] [address] [place], [address] Neutrophils/100 WBC (Bld) 65.1 % Normal 47-70 [facility] Comment on above: Performed By: #### L 500.2500, L100.0100 ####[facility] [address] [place], [address] Nucleated RBC (Bld) [#/Vol] 0 10*3/uL Normal 0-5 [facility] Comment on above: Performed By: #### L 500.2500, L100.0100 ####[facility] [address] [place], [address] Platelet mean volume (Bld) [Entitic vol] 10.3 fL Normal 6.2-12.0 [facility] Comment on above: Performed By: #### L 500.2500, L100.0100 ####[facility] [address] [place], [address] Platelets (Bld) [#/Vol] 105 10*3/uL Low 150-450 [facility] Comment on above: Performed By: #### L 500.2500, L100.0100 ####[facility] [address] [place], [address] RBC (Bld) [#/Vol] 3.59 10*6/uL Low 4.2-5.4 [facility] Comment on above: Performed By: #### L 500.2500, L100.0100 ####[facility] [address] [place], [address] RDW SD 48.3 fl High 35.1-43.9 [facility] Comment on above: Performed By: #### L 500.2500, L100.0100 ####[facility] [address] [place], [address] WBC (Bld) [#/Vol] 5.8 10*3/uL Normal 4.4-11.0 [facility] Comment on above: Performed By: #### L 500.2500, L100.0100 ####[facility] [address] [place], [address] Consultation - Infectious Dx on 11-23-2024 Consultation - Infectious Dx Normal [facility] Culture, Blood (WB)on 2024 CUB Normal [facility] Comment on above: Performed By: #### L 503.6005, L100.0100, L300.3900, L300.4310, M200.1000, M100.636, L500.4050 ####[facility] [address] [place], [address] Echo Transesophageal (KANDY)on 11-23-2024 Echo Transesophageal (KANDY) Normal [facility] Transesophageal echocardiogr am reportOrdered By: Jean Trujillo on 11-23-2024 Study report [facility] Work Phone: Vancomycin, Trough Levelon 0 11-23-2024 VANCO, TROUGH 18.3 ug/mL High 5.0-15.0 [facility] Comment on above: Order Comment: Comme nts: Trough to be drawn 30 mins prior to scheduled [id number] Result Comment: Be mmended goal trough ranges are generally 10-15 mcg/mlfor less severe/complicated infections such as cellulitisor UTI and 15-20 mcg/ml for more severe/complicatedinfections such as bacteremia/sepsis, osteomyelitis,pneumonia or meningitis. Goal trough ranges should takeinto account indication, patient-specific factors andorganism ABBEY.VANCOMYCIN STANDARED DRUG THERAPY TROUGH LEVEL: 5.0 - 15.0 mg/LVANCOMYCIN HIGH INTENSITY THERAPY TROUGH LEVEL: 15.0 - 20.0 mg/LHigh Intensity therapy recommended for serious lifethreatening infections include:- Dxxmwxvlcx-Wjaciydigwxs-Jmaugqync (Ventilator/Healtcare Associated)-SepsisPLEASE CONTACT PHARMACY SERVICES (#5913) FOR INTERPRETATIONOF RESULTS. Performed By: #### L 501.8820 ####[facility] [address] [place], [address] Basic Metabolic Profile (BMP )on 11-22-2024 BUN/CRE 13.0 RATIO Normal - [facility] Comment on above: Performed By: #### L 100.0100, L500.2500 ####[facility] [address] [place], [address] Calcium [Mass/Vol] 7.8 mg/dL Normal 7.6-11.0 [facility] Comment on above: Performed By: #### L 100.0100, L500.2500 ####[facility] [address] [place], [address] Chloride [Moles/Vol] 108 mmol/L Normal 98-108 [facility] Comment on above: Performed By: #### L 100.0100, L500.2500 ####[facility] [address] [place], [address] CO2 [Moles/Vol] 21.5 mmol/L Normal 21.0-32.0 [facility] Comment on above: Performed By: #### L 100.0100, L500.2500 ####[facility] [address] [place], [address] Creatinine [Mass/Vol] 0.70 mg/dL Normal 0.70-1.20 [facility] Comment on above: Performed By: #### L 100.0100, L500.2500 ####[facility] [address] [place], [address] ECRCL 121.42 ml/min Normal 50-250 [facility] Comment on above: Performed By: #### L 100.0100, L500.2500 ####[facility] [address] [place], [address] GAP 8 Normal 5-15 [facility] Comment on above: Performed By: #### L 100.0100, L500.2500 ####[facility] [address] [place], [address] GFR/1.73 sq M.predicted among non-blacks MDRD (S/P/Bld) [Vol rate/Area] 100 mL/min/{1.73_m2} Normal >60 [facility] Comment on above: Result Comment: mL/m in/1.73m2 CKD-EPI Creatinine Equation (2020) Performed By: #### L 100.0100, L500.2500 ####[facility] [address] [place], [address] Glucose [Mass/Vol] 184 mg/dL High 70-99 [facility] Comment on above: Performed By: #### L 100.0100, L500.2500 ####[facility] [address] [place], [address] Potassium [Moles/Vol] 3.6 mmol/L Normal 3.3-5.1 [facility] Comment on above: Performed By: #### L 100.0100, L500.2500 ####[facility] [address] [place], [address] Sodium [Moles/Vol] 138 mmol/L Normal 133-145 [facility] Comment on above: Performed By: #### L 100.0100, L500.2500 ####[facility] [address] [place], [address] Urea nitrogen [Mass/Vol] 9 mg/dL Normal 4-19 [facility] Comment on above: Performed By: #### L 100.0100, L500.2500 ####[facility] [address] [place], [address] Bedside Glucoseon 11-22-2024 FINGERSTICK GLU 85 mg/dL Normal 74-106 [facility] Comment on above: Result Comment: ELLIOTT GEMENT OF PATIENT CARE PER NURSING PROTOCOL Performed By: #### L 501.080 ####[facility] [address] [place], [address] FINGERSTICK GLU 179 mg/dL High 74-106 [facility] Comment on above: Result Comment: ELLIOTT GEMENT OF PATIENT CARE PER NURSING PROTOCOL Performed By: #### L 501.080 ####[facility] [address] [place], [address] FINGERSTICK GLU 198 mg/dL High 74-106 [facility] Comment on above: Result Comment: ELLIOTT GEMENT OF PATIENT CARE PER NURSING PROTOCOL Performed By: #### L 501.080 ####[facility] [address] [place], [address] FINGERSTICK GLU 177 mg/dL High 74-106 [facility] Comment on above: Result Comment: ELLIOTT ESTRADA OF PATIENT CARE PER NURSING PROTOCOL Performed By: #### L 501.080 ####[facility] [address] [place], [address] CBC W/Diff, Automatedon 05- Absolute Lymph 1.35 X10 3/uL Normal 0.83-4.51 [facility] Comment on above: Performed By: #### L 100.0100, L500.2500 ####[facility] [address] [place], [address] Absolute Neut 4.2 X10 3/uL Normal 2.0-7.7 [facility] Comment on above: Performed By: #### L 100.0100, L500.2500 ####[facility] [address] [place], [address] Basophils/100 WBC (Bld) 0.5 % Normal 0-1 [facility] Comment on above: Performed By: #### L 100.0100, L500.2500 ####[facility] [address] [place], [address] Eosinophils/100 WBC (Bld) 0.6 % Normal 0-5 [facility] Comment on above: Performed By: #### L 100.0100, L500.2500 ####[facility] [address] [place], [address] Erythrocyte distribution width (RBC) [Ratio] 14.3 % Normal 11.6-14.6 [facility] Comment on above: Performed By: #### L 100.0100, L500.2500 ####[facility] [address] [place], [address] Hematocrit (Bld) [Volume fraction] 32.4 % Low 37-47 [facility] Comment on above: Performed By: #### L 100.0100, L500.2500 ####[facility] [address] [place], [address] Hemoglobin (Bld) [Mass/Vol] 10.6 g/dL Low 12.0-15.0 [facility] Comment on above: Performed By: #### L 100.0100, L500.2500 ####[facility] [address] [place], [address] IG% 0.800 Normal 0.0-0.9 [facility] Comment on above: Result Comment: IG% - Immature Granulocytes (promyelocytes, myelocytes andmetamyelocytes) > 1% indicates that a LEFT SHIFT is Present. Performed By: #### L 100.0100, L500.2500 ####[facility] [address] [place], [address] Lymphocytes/100 WBC (Bld) 21.6 % Normal 19-41 [facility] Comment on above: Performed By: #### L 100.0100, L500.2500 ####[facility] [address] [place], [address] MCH (RBC) [Entitic mass] 29.7 pg Normal 27.0-32.0 [facility] Comment on above: Performed By: #### L 100.0100, L500.2500 ####[facility] [address] [place], [address] MCHC (RBC) [Mass/Vol] 32.7 g/dL Normal 32-36 [facility] Comment on above: Performed By: #### L 100.0100, L500.2500 ####[facility] [address] [place], [address] MCV (RBC) [Entitic vol] 90.8 fL Normal 81-99 [facility] Comment on above: Performed By: #### L 100.0100, L500.2500 ####[facility] [address] [place], [address] Monocytes/100 WBC (Bld) 9.1 % Normal 0-10 [facility] Comment on above: Performed By: #### L 100.0100, L500.2500 ####[facility] [address] [place], [address] Neutrophils/100 WBC (Bld) 67.4 % Normal 47-70 [facility] Comment on above: Performed By: #### L 100.0100, L500.2500 ####[facility] [address] [place], [address] Nucleated RBC (Bld) [#/Vol] 0 10*3/uL Normal 0-5 [facility] Comment on above: Performed By: #### L 100.0100, L500.2500 ####[facility] [address] [place], [address] Platelet mean volume (Bld) [Entitic vol] 10.0 fL Normal 6.2-12.0 [facility] Comment on above: Performed By: #### L 100.0100, L500.2500 ####[facility] [address] [place], [address] Platelets (Bld) [#/Vol] 102 10*3/uL Low 150-450 [facility] Comment on above: Performed By: #### L 100.0100, L500.2500 ####[facility] [address] [place], [address] RBC (Bld) [#/Vol] 3.57 10*6/uL Low 4.2-5.4 [facility] Comment on above: Performed By: #### L 100.0100, L500.2500 ####[facility] [address] [place], [address] RDW SD 48.0 fl High 35.1-43.9 [facility] Comment on above: Performed By: #### L 100.0100, L500.2500 ####[facility] [address] [place], [address] WBC (Bld) [#/Vol] 6.2 10*3/uL Normal 4.4-11.0 [facility] Comment on above: Performed By: #### L 100.0100, L500.2500 ####[facility] [address] [place], [address] Consultation - Cardiologyon 11-22-2024 Consultation - Cardiology Normal [facility] Vancomycin, Trough Levelon 0 11-22-2024 VANCO, TROUGH 10.4 ug/mL Normal 5.0-15.0 [facility] Comment on above: Order Comment: Comme nts: Trough to be drawn 30 mins prior to scheduled dose Result Comment: Be mmended goal trough ranges are generally 10-15 mcg/mlfor less severe/complicated infections such as cellulitisor UTI and 15-20 mcg/ml for more severe/complicatedinfections such as bacteremia/sepsis, osteomyelitis,pneumonia or meningitis. Goal trough ranges should takeinto account indication, patient-specific factors andorganism ABBEY.VANCOMYCIN STANDARED DRUG THERAPY TROUGH LEVEL: 5.0 - 15.0 mg/LVANCOMYCIN HIGH INTENSITY THERAPY TROUGH LEVEL: 15.0 - 20.0 mg/LHigh Intensity therapy recommended for serious lifethreatening infections include:- Apuzetruef-Asjbqyaywqyr-Emtgpfihf (Ventilator/Healtcare Associated)-SepsisPLEASE CONTACT PHARMACY SERVICES (#4533) FOR INTERPRETATIONOF RESULTS. Performed By: #### L 501.8820 ####[facility] [address] [place], [address] Basic Metabolic Profile (BMP )on 11-21-2024 BUN/CRE 15.4 RATIO Normal - [facility] Comment on above: Performed By: #### L 101.9900, L501.6710, L509.7001, L100.0100, L500.2500 ####[facility] [address] [place], [address] Calcium [Mass/Vol] 8.4 mg/dL Normal 7.6-11.0 [facility] Comment on above: Performed By: #### L 101.9900, L501.6710, L509.7001, L100.0100, L500.2500 ####[facility] [address] [place], [address] Chloride [Moles/Vol] 104 mmol/L Normal 98-108 [facility] Comment on above: Performed By: #### L 101.9900, L501.6710, L509.7001, L100.0100, L500.2500 ####[facility] [address] [place], [address] CO2 [Moles/Vol] 22.5 mmol/L Normal 21.0-32.0 [facility] Comment on above: Performed By: #### L 101.9900, L501.6710, L509.7001, L100.0100, L500.2500 ####[facility] [address] [place], [address] Creatinine [Mass/Vol] 0.87 mg/dL Normal 0.70-1.20 [facility] Comment on above: Performed By: #### L 101.9900, L501.6710, L509.7001, L100.0100, L500.2500 ####[facility] [address] [place], [address] ECRCL 99.31 ml/min Normal 50-250 [facility] Comment on above: Performed By: #### L 101.9900, L501.6710, L509.7001, L100.0100, L500.2500 ####[facility] [address] [place], [address] GAP 10 Normal 5-15 [facility] Comment on above: Performed By: #### L 101.9900, L501.6710, L509.7001, L100.0100, L500.2500 ####[facility] [address] [place], [address] GFR/1.73 sq M.predicted among non-blacks MDRD (S/P/Bld) [Vol rate/Area] 78 mL/min/{1.73_m2} Normal >60 [facility] Comment on above: Result Comment: mL/m in/1.73m2 CKD-EPI Creatinine Equation (2020) Performed By: #### L 101.9900, L501.6710, L509.7001, L100.0100, L500.2500 ####[facility] [address] [place], [address] Glucose [Mass/Vol] 266 mg/dL High 70-99 [facility] Comment on above: Performed By: #### L 101.9900, L501.6710, L509.7001, L100.0100, L500.2500 ####[facility] [address] [place], [address] Potassium [Moles/Vol] 4.0 mmol/L Normal 3.3-5.1 [facility] Comment on above: Performed By: #### L 101.9900, L501.6710, L509.7001, L100.0100, L500.2500 ####[facility] [address] [place], [address] Sodium [Moles/Vol] 136 mmol/L Normal 133-145 [facility] Comment on above: Performed By: #### L 101.9900, L501.6710, L509.7001, L100.0100, L500.2500 ####[facility] [address] [place], [address] Urea nitrogen [Mass/Vol] 13 mg/dL Normal 4-19 [facility] Comment on above: Performed By: #### L 101.9900, L501.6710, L509.7001, L100.0100, L500.2500 ####[facility] [address] [place], [address] Bedside Glucoseon 11-21-2024 FINGERSTICK GLU 252 mg/dL High 74-106 [facility] Comment on above: Result Comment: ELLIOTT GEMENT OF PATIENT CARE PER NURSING PROTOCOL Performed By: #### L 501.080 ####[facility] [address] [place], [address] FINGERSTICK GLU 314 mg/dL High 74-106 [facility] Comment on above: Result Comment: Dr Jose ledesma FollowedMANAGEMENT OF PATIENT CARE PER NURSING PROTOCOL Performed By: #### L 501.080 ####[facility] [address] [place], [address] FINGERSTICK GLU 300 mg/dL High -106 [facility] Comment on above: Result Comment: Dr Jose ledesma FollowedMANAGEMENT OF PATIENT CARE PER NURSING PROTOCOL Performed By: #### L 501.080 ####[facility] [address] [place], [address] FINGERSTICK GLU 248 mg/dL High [facility]106 [facility] Comment on above: Result Comment: ELLIOTT GEMENT OF PATIENT CARE PER NURSING PROTOCOL Performed By: #### L 501.080 ####[facility] [address] [place], [address] Blood cultureOrdered By: Vidhya Smith on 11-21-2024 Bacteria identified Cx Nom (Bld) No growth in 5 days. [facility] Bacteria identified Cx Nom (Bld) No growth in 5 days. [facility] CBC W/Diff, Automatedon 11-12 Absolute Lymph 0.84 X10 3/uL Normal 0.83-4.51 [facility] Comment on above: Performed By: #### L 101.9900, L501.6710, L509.7001, L100.0100, L500.2500 ####[facility] [address] [place], [address] Absolute Neut 9.7 X10 3/uL High 2.0-7.7 [facility] Comment on above: Performed By: #### L 101.9900, L501.6710, L509.7001, L100.0100, L500.2500 ####[facility] [address] [place], [address] Basophils/100 WBC (Bld) 0.4 % Normal 0-1 [facility] Comment on above: Performed By: #### L 101.9900, L501.6710, L509.7001, L100.0100, L500.2500 ####[facility] [address] [place], [address] Eosinophils/100 WBC (Bld) 0.1 % Normal 0-5 [facility] Comment on above: Performed By: #### L 101.9900, L501.6710, L509.7001, L100.0100, L500.2500 ####[facility] [address] [place], [address] Erythrocyte distribution width (RBC) [Ratio] 14.4 % Normal 11.6-14.6 [facility] Comment on above: Performed By: #### L 101.9900, L501.6710, L509.7001, L100.0100, L500.2500 ####[facility] [address] [place], [address] Hematocrit (Bld) [Volume fraction] 34.4 % Low 37-47 [facility] Comment on above: Performed By: #### L 101.9900, L501.6710, L509.7001, L100.0100, L500.2500 ####[facility] [address] [place], [address] Hemoglobin (Bld) [Mass/Vol] 11.2 g/dL Low 12.0-15.0 [facility] Comment on above: Performed By: #### L 101.9900, L501.6710, L509.7001, L100.0100, L500.2500 ####[facility] [address] [place], [address] IG% 0.700 Normal 0.0-0.9 [facility] Comment on above: Result Comment: IG% - Immature Granulocytes (promyelocytes, myelocytes andmetamyelocytes) > 1% indicates that a LEFT SHIFT is Present. Performed By: #### L 101.9900, L501.6710, L509.7001, L100.0100, L500.2500 ####[facility] [address] [place], [address] Lymphocytes/100 WBC (Bld) 7.5 % Low 19-41 [facility] Comment on above: Performed By: #### L 101.9900, L501.6710, L509.7001, L100.0100, L500.2500 ####[facility] [address] [place], [address] MCH (RBC) [Entitic mass] 29.5 pg Normal 27.0-32.0 [facility] Comment on above: Performed By: #### L 101.9900, L501.6710, L509.7001, L100.0100, L500.2500 ####[facility] [address] [place], [address] MCHC (RBC) [Mass/Vol] 32.6 g/dL Normal 32-36 [facility] Comment on above: Performed By: #### L 101.9900, L501.6710, L509.7001, L100.0100, L500.2500 ####[facility] [address] [place], [address] MCV (RBC) [Entitic vol] 90.5 fL Normal 81-99 [facility] Comment on above: Performed By: #### L 101.9900, L501.6710, L509.7001, L100.0100, L500.2500 ####[facility] [address] [place], [address] Monocytes/100 WBC (Bld) 4.7 % Normal 0-10 [facility] Comment on above: Performed By: #### L 101.9900, L501.6710, L509.7001, L100.0100, L500.2500 ####[facility] [address] [place], [address] Neutrophils/100 WBC (Bld) 86.6 % High 47-70 [facility] Comment on above: Performed By: #### L 101.9900, L501.6710, L509.7001, L100.0100, L500.2500 ####[facility] [address] [place], [address] Nucleated RBC (Bld) [#/Vol] 0 10*3/uL Normal 0-5 [facility] Comment on above: Performed By: #### L 101.9900, L501.6710, L509.7001, L100.0100, L500.2500 ####[facility] [address] [place], [address] Platelet mean volume (Bld) [Entitic vol] 10.6 fL Normal 6.2-12.0 [facility] Comment on above: Performed By: #### L 101.9900, L501.6710, L509.7001, L100.0100, L500.2500 ####[facility] [address] [place], [address] Platelets (Bld) [#/Vol] 105 10*3/uL Low 150-450 [facility] Comment on above: Performed By: #### L 101.9900, L501.6710, L509.7001, L100.0100, L500.2500 ####[facility] [address] [place], [address] RBC (Bld) [#/Vol] 3.80 10*6/uL Low 4.2-5.4 [facility] Comment on above: Performed By: #### L 101.9900, L501.6710, L509.7001, L100.0100, L500.2500 ####[facility] [address] [place], [address] RDW SD 47.7 fl High 35.1-43.9 [facility] Comment on above: Performed By: #### L 101.9900, L501.6710, L509.7001, L100.0100, L500.2500 ####[facility] [address] [place], [address] WBC (Bld) [#/Vol] 11.2 10*3/uL High 4.4-11.0 [facility] Comment on above: Performed By: #### L 101.9900, L501.6710, L509.7001, L100.0100, L500.2500 ####[facility] [address] [place], [address] CRPon 11-21-2024 C-REACTIVE PROT 115.00 mg/L High 0.0-3.0 [facility] Comment on above: Performed By: #### L 101.9900, L501.6710, L509.7001, L100.0100, L500.2500 ####[facility] [address] [place], [address] Echocardiogram study reportO rdered By: Radha Dumont on 11-21-2024 Study report [facility] Work Phone: Erythrocyte Sed Rateon 11-21 SED RATE 26 mm/hr Normal 0-30 [facility] Comment on above: Performed By: #### L 101.9900, L501.6710, L509.7001, L100.0100, L500.2500 ####[facility] [address] [place], [address] Erythrocyte sedimentation ra teOrdered By: Mariah Brewer on 11-21-2024 ESR (Bld) [Velocity] 26 mm/h 0-30 [facility] L509.7001on 11-21-2024 Procalcitonin 8.24 ng/mL High <=0.10 [facility] Comment on above: Result Comment: Inte rpretation:<0.10-0.25 ng/mL: Antibiotic therapy discouraged. Bacterialinfection unlikely.0.25-0.50 ng/mL: Antibiotic therapy encouraged. Bacterialinfection possible.>0.50 ng/mL: Antibiotic therapy strongly encouraged.Suggestive of presence of bacterial infection.PCT should always be interpreted in the clinical context ofthe patient. Therefore, clinicians should use the PCTresults in conjunction with other laboratory findings andclinical signs of the patient. Performed By: #### L 101.9900, L501.6710, L509.7001, L100.0100, L500.2500 ####[facility] [address] [place], [address] Lactic Acidon 11-21-2024 Lactate [Moles/Vol] 1.5 mmol/L Normal 0.0-2.0 [facility] Comment on above: Order Comment: Y Performed By: #### L 503.6005 ####[facility] [address] [place], [address] Procalcitonin [Mass/volume] in Serum or Plasma by ImmunoassayOrdered By: Mariah Brewer on 11-21-2024 Procalcitonin IA [Mass/Vol] 8.24 ng/mL High <0.11 [facility] RESPIRATORY PANEL MOLECULARo n 11-21-2024 RP PANEL Normal [facility] Comment on above: Performed By: #### M 100.638 ####[facility] [address] [place], [address] Serum or plasma C reactive p rotein measurement (mass/volume)Ordered By: Mariah Brewer on 11-21-2024 CRP [Mass/Vol] 115.00 mg/L High 0.0-3.0 [facility] Urine Cultureon 11-21-2024 URC Culture exhibits no growth. Normal [facility] Comment on above: Performed By: #### M 100.2200, L400.0001, M100.678 ####[facility] [address] [place], [place], [id number] Abdomen/Pelvis W IV Cont ONL Yon 11-20-2024 Abdomen/Pelvis W IV Cont ONLY Normal [facility] Absolute lymphocyte countOrd ered By: Javy Saul on 11-20-2024 Lymphocytes Auto (Unsp spec) [#/Vol] 0.50 10*3/uL Low 0.83-4.51 [facility] Absolute neutrophil countOrd ered By: Javy Saul on 11-20-2024 Neutrophils (Bld) [#/Vol] 8.5 10*3/uL High 2.0-7.7 [facility] Activated partial thrombopla stin time (aPTT) in platelet poor plasma by coagulation aOrdered By: Javy Saul on 11-20-2024 aPTT Coag (PPP) [Time] 22.6 s Low 24.1-36.2 [facility] Anion gap in Serum or Plasma Ordered By: Javy Saul on 11-20-2024 Anion gap [Moles/Vol] 8 mmol/L 5-15 [facility] Automated lymphocyte count a s percentage of total leukocytesOrdered By: Javy Saul on 11-20-2024 Lymphocytes/100 WBC Auto (Unsp spec) 5.2 % Low 19-41 [facility] BUN/creatinine ratioOrdered By: Javy Saul on 11-20-2024 Urea nitrogen/Creatinine [Mass ratio] 12.3 mg/mg 10-20 [facility] Basophil percentageOrdered B y: Javy Saul on 11-20-2024 Basophils/100 WBC (Bld) 0.2 % 0-1 [facility] Bedside Glucoseon 11-20-2024 FINGERSTICK GLU 123 mg/dL High 74-106 [facility] Comment on above: Result Comment: ELLIOTT ESTRADA OF PATIENT CARE PER NURSING PROTOCOL Performed By: #### L 501.080 ####[facility] [address] [place], [address] Bilirubin Test strip Ql (U)O rdered By: Javy Saul on 11-20-2024 Bilirubin Ql (U) Negative Negative [facility] Bilirubin, totalOrdered By: Javy Saul on 11-20-2024 Bilirubin [Mass/Vol] 0.37 mg/dL 0.00-1.30 [facility] Blood cultureOrdered By: Evelio Saul on 11-20-2024 Bacteria identified Cx Nom (Bld) Staphylococcus aureus Abnormal [facility] Bacteria identified Cx Nom (Bld) Meth. resistant Staph. aureus Abnormal [facility] Brain/Head without Contrasto n 11-20-2024 Brain/Head without Contrast Normal [facility] CBC W/Diff, Automatedon 05 Absolute Lymph 0.50 X10 3/uL Low 0.83-4.51 [facility] Comment on above: Performed By: #### L 503.6005, L100.0100, L300.3900, L300.4310, M200.1000, M100.636, L500.4050 ####[facility] [address] [place], [address] Absolute Neut 8.5 X10 3/uL High 2.0-7.7 [facility] Comment on above: Performed By: #### L 503.6005, L100.0100, L300.3900, L300.4310, M200.1000, M100.636, L500.4050 ####[facility] [address] [place], [address] Basophils/100 WBC (Bld) 0.2 % Normal 0-1 [facility] Comment on above: Performed By: #### L 503.6005, L100.0100, L300.3900, L300.4310, M200.1000, M100.636, L500.4050 ####[facility] [address] [place], [address] Eosinophils/100 WBC (Bld) 0.4 % Normal 0-5 [facility] Comment on above: Performed By: #### L 503.6005, L100.0100, L300.3900, L300.4310, M200.1000, M100.636, L500.4050 ####[facility] [address] [place], [address] Erythrocyte distribution width (RBC) [Ratio] 14.2 % Normal 11.6-14.6 [facility] Comment on above: Performed By: #### L 503.6005, L100.0100, L300.3900, L300.4310, M200.1000, M100.636, L500.4050 ####[facility] [address] [place], [address] Hematocrit (Bld) [Volume fraction] 38.8 % Normal 37-47 [facility] Comment on above: Performed By: #### L 503.6005, L100.0100, L300.3900, L300.4310, M200.1000, M100.636, L500.4050 ####[facility] [address] [place], [address] Hemoglobin (Bld) [Mass/Vol] 12.6 g/dL Normal 12.0-15.0 [facility] Comment on above: Performed By: #### L 503.6005, L100.0100, L300.3900, L300.4310, M200.1000, M100.636, L500.4050 ####[facility] [address] [place], [address] IG% 0.700 Normal 0.0-0.9 [facility] Comment on above: Result Comment: IG% - Immature Granulocytes (promyelocytes, myelocytes andmetamyelocytes) > 1% indicates that a LEFT SHIFT is Present. Performed By: #### L 503.6005, L100.0100, L300.3900, L300.4310, M200.1000, M100.636, L500.4050 ####[facility] [address] [place], [address] Lymphocytes/100 WBC (Bld) 5.2 % Low 19-41 [facility] Comment on above: Performed By: #### L 503.6005, L100.0100, L300.3900, L300.4310, M200.1000, M100.636, L500.4050 ####[facility] [address] [place], [address] MCH (RBC) [Entitic mass] 29.4 pg Normal 27.0-32.0 [facility] Comment on above: Performed By: #### L 503.6005, L100.0100, L300.3900, L300.4310, M200.1000, M100.636, L500.4050 ####[facility] [address] [place], [address] MCHC (RBC) [Mass/Vol] 32.5 g/dL Normal 32-36 [facility] Comment on above: Performed By: #### L 503.6005, L100.0100, L300.3900, L300.4310, M200.1000, M100.636, L500.4050 ####[facility] [address] [place], [address] MCV (RBC) [Entitic vol] 90.4 fL Normal 81-99 [facility] Comment on above: Performed By: #### L 503.6005, L100.0100, L300.3900, L300.4310, M200.1000, M100.636, L500.4050 ####[facility] [address] [place], [address] Monocytes/100 WBC (Bld) 4.1 % Normal 0-10 [facility] Comment on above: Performed By: #### L 503.6005, L100.0100, L300.3900, L300.4310, M200.1000, M100.636, L500.4050 ####[facility] [address] [place], [address] Neutrophils/100 WBC (Bld) 89.4 % High 47-70 [facility] Comment on above: Performed By: #### L 503.6005, L100.0100, L300.3900, L300.4310, M200.1000, M100.636, L500.4050 ####[facility] [address] [place], [address] Nucleated RBC (Bld) [#/Vol] 0 10*3/uL Normal 0-5 [facility] Comment on above: Performed By: #### L 503.6005, L100.0100, L300.3900, L300.4310, M200.1000, M100.636, L500.4050 ####[facility] [address] [place], [address] Platelet mean volume (Bld) [Entitic vol] 10.4 fL Normal 6.2-12.0 [facility] Comment on above: Performed By: #### L 503.6005, L100.0100, L300.3900, L300.4310, M200.1000, M100.636, L500.4050 ####[facility] [address] [place], [address] Platelets (Bld) [#/Vol] 148 10*3/uL Low 150-450 [facility] Comment on above: Performed By: #### L 503.6005, L100.0100, L300.3900, L300.4310, M200.1000, M100.636, L500.4050 ####[facility] [address] [place], [address] RBC (Bld) [#/Vol] 4.29 10*6/uL Normal 4.2-5.4 [facility] Comment on above: Performed By: #### L 503.6005, L100.0100, L300.3900, L300.4310, M200.1000, M100.636, L500.4050 ####[facility] [address] [place], [address] RDW SD 46.5 fl High 35.1-43.9 [facility] Comment on above: Performed By: #### L 503.6005, L100.0100, L300.3900, L300.4310, M200.1000, M100.636, L500.4050 ####[facility] [address] [place], [address] WBC (Bld) [#/Vol] 9.6 10*3/uL Normal 4.4-11.0 [facility] Comment on above: Performed By: #### L 503.6005, L100.0100, L300.3900, L300.4310, M200.1000, M100.636, L500.4050 ####[facility] [address] [place], [address] CRPon 11-20-2024 C-REACTIVE PROT 11.00 mg/L High 0.0-3.0 [facility] Comment on above: Performed By: #### L 501.6710, L101.9900, L509.7001 ####[facility] [address] [place], [address] Carbon dioxide, total [Moles /volume] in Central venous bloodOrdered By: Javy Saul on 11-20-2024 CO2 [Moles/Vol] 24.5 mmol/L 21.0-32.0 [facility] Chest 1 View (Portable)on Chest 1 View (Portable) Normal [facility] Chloride assayOrdered By: Romero Saul on 11-20-2024 Chloride [Moles/Vol] 100 mmol/L 98-108 [facility] Comprehensive Metabolic Prof ilon 11-20-2024 Albumin [Mass/Vol] 3.7 g/dL Normal 3.5-5.0 [facility] Comment on above: Performed By: #### L 503.6005, L100.0100, L300.3900, L300.4310, M200.1000, M100.636, L500.4050 ####[facility] [address] [place], [address] Albumin/Globulin [Mass ratio] 1.1 {ratio} Normal 0.9-2.4 [facility] Comment on above: Performed By: #### L 503.6005, L100.0100, L300.3900, L300.4310, M200.1000, M100.636, L500.4050 ####[facility] [address] [place], [address] ALK PHOS 175 U/L High 35-104 [facility] Comment on above: Performed By: #### L 503.6005, L100.0100, L300.3900, L300.4310, M200.1000, M100.636, L500.4050 ####[facility] [address] [place], [address] ALT [Catalytic activity/Vol] 26 U/L Normal <=34 [facility] Comment on above: Performed By: #### L 503.6005, L100.0100, L300.3900, L300.4310, M200.1000, M100.636, L500.4050 ####[facility] [address] [place], [address] AST [Catalytic activity/Vol] 24 U/L Normal <=31 [facility] Comment on above: Performed By: #### L 503.6005, L100.0100, L300.3900, L300.4310, M200.1000, M100.636, L500.4050 ####[facility] [address] [place], [address] Bilirubin [Mass/Vol] 0.37 mg/dL Normal 0.00-1.30 [facility] Comment on above: Performed By: #### L 503.6005, L100.0100, L300.3900, L300.4310, M200.1000, M100.636, L500.4050 ####[facility] [address] [place], [address] BUN/CRE 12.3 RATIO Normal 10-20 [facility] Comment on above: Performed By: #### L 503.6005, L100.0100, L300.3900, L300.4310, M200.1000, M100.636, L500.4050 ####[facility] [address] [place], [address] Calcium [Mass/Vol] 9.3 mg/dL Normal 7.6-11.0 [facility] Comment on above: Performed By: #### L 503.6005, L100.0100, L300.3900, L300.4310, M200.1000, M100.636, L500.4050 ####[facility] [address] [place], [address] Chloride [Moles/Vol] 100 mmol/L Normal 98-108 [facility] Comment on above: Performed By: #### L 503.6005, L100.0100, L300.3900, L300.4310, M200.1000, M100.636, L500.4050 ####[facility] [address] [place], [address] CO2 [Moles/Vol] 24.5 mmol/L Normal 21.0-32.0 [facility] Comment on above: Performed By: #### L 503.6005, L100.0100, L300.3900, L300.4310, M200.1000, M100.636, L500.4050 ####[facility] [address] [place], [address] Creatinine [Mass/Vol] 0.83 mg/dL Normal 0.70-1.20 [facility] Comment on above: Performed By: #### L 503.6005, L100.0100, L300.3900, L300.4310, M200.1000, M100.636, L500.4050 ####[facility] [address] [place], [address] ECRCL 104.64 ml/min Normal 50-250 [facility] Comment on above: Performed By: #### L 503.6005, L100.0100, L300.3900, L300.4310, M200.1000, M100.636, L500.4050 ####[facility] [address] [place], [address] GAP 8 Normal 5-15 [facility] Comment on above: Performed By: #### L 503.6005, L100.0100, L300.3900, L300.4310, M200.1000, M100.636, L500.4050 ####[facility] [address] [place], [address] GFR/1.73 sq M.predicted among non-blacks MDRD (S/P/Bld) [Vol rate/Area] 81 mL/min/{1.73_m2} Normal >60 [facility] Comment on above: Result Comment: mL/m in/1.73m2 CKD-EPI Creatinine Equation (2020) Performed By: #### L 503.6005, L100.0100, L300.3900, L300.4310, M200.1000, M100.636, L500.4050 ####[facility] [address] [place], [address] Globulin (S) [Mass/Vol] 3.4 g/dL Normal 2.2-4.2 [facility] Comment on above: Performed By: #### L 503.6005, L100.0100, L300.3900, L300.4310, M200.1000, M100.636, L500.4050 ####[facility] [address] [place], [address] Glucose [Mass/Vol] 263 mg/dL High 70-99 [facility] Comment on above: Performed By: #### L 503.6005, L100.0100, L300.3900, L300.4310, M200.1000, M100.636, L500.4050 ####[facility] [address] [place], [address] Potassium [Moles/Vol] 4.5 mmol/L Normal 3.3-5.1 [facility] Comment on above: Performed By: #### L 503.6005, L100.0100, L300.3900, L300.4310, M200.1000, M100.636, L500.4050 ####[facility] [address] [place], [address] Sodium [Moles/Vol] 132 mmol/L Low 133-145 [facility] Comment on above: Performed By: #### L 503.6005, L100.0100, L300.3900, L300.4310, M200.1000, M100.636, L500.4050 ####[facility] [address] [place], [address] T PROT 7.1 g/dL Normal 5.9-8.4 [facility] Comment on above: Performed By: #### L 503.6005, L100.0100, L300.3900, L300.4310, M200.1000, M100.636, L500.4050 ####[facility] [address] [place], [address] Urea nitrogen [Mass/Vol] 10 mg/dL Normal 4-19 [facility] Comment on above: Performed By: #### L 503.6005, L100.0100, L300.3900, L300.4310, M200.1000, M100.636, L500.4050 ####[facility] [address] [place], [place], [id number] Consultation - Intensiviston 11-20-2024 Consultation - Clinic Supervisor Normal [facility] Echo Complete W/ Contraston 11-20-2024 Echo Complete W/ Contrast Normal [facility] Emergency Department Summary on 11-20-2024 Emergency Department Summary Normal [facility] Eosinophil percentageOrdered By: Javy Saul on 11-20-2024 Eosinophils/100 WBC (Bld) 0.4 % 0-5 [facility] Erythrocyte Sed Rateon 11-20 SED RATE 19 mm/hr Normal 0-30 [facility] Comment on above: Performed By: #### L 501.6710, L101.9900, L509.7001 ####[facility] [address] [place], [place], [id number] Erythrocyte distribution wid th ratioOrdered By: Javy Saul on 11-20-2024 Erythrocyte distribution width (RBC) [Ratio] 14.2 % 11.6-14.6 [facility] Erythrocyte distribution wid th standard deviationOrdered By: Javy Saul on 11-20-2024 Erythrocyte distribution width (RBC) [Ratio] 46.5 fl High 35.1-43.9 [facility] Glomerular filtration rate ( GFR) estimation/1.73 sq m using serum, plasma, or whole bOrdered By: Javy Saul on 11-20-2024 GFR/1.73 sq M.predicted among non-blacks MDRD (S/P/Bld) [Vol rate/Area] 81 mL/min/{1.73_m2} >60 [facility] Comment on above: mL/min/1.73m2 CKD-EP I Creatinine Equation (2020) H AND P Exam - Hospitaliston 11-20-2024 H&P Exam - Hospitalist Normal [facility] Hematocrit Auto (Bld) [Volum e fraction]Ordered By: Javy Saul on 11-20-2024 Hematocrit (Bld) [Volume fraction] 38.8 % 37-47 [facility] Hemoglobin measurementOrdere d By: Javy Saul on 11-20-2024 Hemoglobin (Bld) [Mass/Vol] 12.6 g/dL 12.0-15.0 [facility] Immature granulocytes/100 WB C Auto (Bld)Ordered By: Javy Saul on 11-20-2024 Immature granulocytes/100 WBC (Bld) 0.700 % 0.0-0.9 [facility] Comment on above: IG% - Immature Granu locytes (promyelocytes, myelocytes and metamyelocytes) > 1% indicates that a LEFT SHIFT is Present. Influenza virus A and B and SARS-CoV-2 (COVID-19) and Respiratory syncytial virus RNAOrdered By: Javy Saul on 11-20-2024 SARS-CoV-2 (COVID-19) RNA LUÍS+probe Ql (Unsp spec) [facility] International normalized rat io (INR) calculationOrdered By: Javy Saul on 11-20-2024 INR Coag (Bld) [Relative time] 1.0 {INR} [facility] Ketones Test strip Ql (U)Ord ered By: Javy Saul on 11-20-2024 Ketones Ql (U) Negative Negative [facility] L509.7001on 11-20-2024 Procalcitonin 0.10 ng/mL Normal <=0.10 [facility] Comment on above: Result Comment: Inte rpretation:<0.10-0.25 ng/mL: Antibiotic therapy discouraged. Bacterialinfection unlikely.0.25-0.50 ng/mL: Antibiotic therapy encouraged. Bacterialinfection possible.>0.50 ng/mL: Antibiotic therapy strongly encouraged.Suggestive of presence of bacterial infection.PCT should always be interpreted in the clinical context ofthe patient. Therefore, clinicians should use the PCTresults in conjunction with other laboratory findings andclinical signs of the patient. Performed By: #### L 501.6710, L101.9900, L509.7001 ####[facility] [address] [place], [place], [id number] Laboratory - Chemistry and C hemistry - challengeOrdered By: Javy Saul on 11-20-2024 AST [Catalytic activity/Vol] 24 U/L <32 [facility] Lactic Acidon 11-20-2024 Lactate [Moles/Vol] 2.4 mmol/L Invalid Interpretation Code 0.0-2.0 [facility] Comment on above: Result Comment: Crit ical Result(s) Called at: 2056 by: SONIA JANSEN TO GAIL Results read back by same. Performed By: #### L 503.6005 ####[facility] [address] [place], [address] Lactate [Moles/Vol] 2.4 mmol/L Invalid Interpretation Code 0.0-2.0 [facility] Comment on above: Order Comment: Y Result Comment: Crit ical Result(s) Called to Santos LEGER (ER): Zofiar:??Results read back by same. Performed By: #### L 503.6005, L100.0100, L300.3900, L300.4310, M200.1000, M100.636, L500.4050 ####[facility] [address] [place], [address] Lactic acid measurementOrder ed By: Jayv Saul on 11-20-2024 Lactate [Moles/Vol] 2.4 mmol/L High 0.0-2.0 [facility] Comment on above: Critical Result(s) C alled to Santos LEGER (ER): by Mandi: Results read back by same. M100.678on 11-20-2024 M100.678 Pending SARS-CoV-2 (COVID 19) Negative INFLUENZA A Negative INFLUENZA B Negative RSV PCR Negative Normal [facility] Comment on above: Performed By: #### M 100.2200, L400.0001, M100.678 ####[facility] [address] [place], [address] MCV (mean corpuscular volume ) determinationOrdered By: Javy Saul on 11-20-2024 MCV (RBC) [Entitic vol] 90.4 fL 81-99 [facility] Mean corpuscular hemoglobin (MCH) determinationOrdered By: Javy Saul on 11-20-2024 MCH (RBC) [Entitic mass] 29.4 pg 27.0-32.0 [facility] Mean corpuscular hemoglobin concentration (MCHC) determinationOrdered By: Javy Saul on 11-20-2024 MCHC (RBC) [Mass/Vol] 32.5 g/dL 32-36 [facility] Mean platelet volume determi nationOrdered By: Javy Saul on 11-20-2024 Platelet mean volume (Bld) [Entitic vol] 10.4 fL 6.2-12.0 [facility] Microscopic analysis of urin e for red blood cells (RBC)Ordered By: Javy Saul on 11-20-2024 Microscopic analysis of urine for red blood cells (RBC) 0-5 SEEN /hpf 0-5 [facility] Monocyte percentageOrdered B y: Javy Saul on 11-20-2024 Monocytes/100 WBC (Bld) 4.1 % 0-10 [facility] Mucus LM Ql (Urine sed)Order ed By: Javy Saul on 11-20-2024 Mucus Ql (Urine sed) 0 SEEN /hpf [facility] Neutrophil percentageOrdered By: Javy Saul on 11-20-2024 Neutrophils/100 WBC (Bld) 89.4 % High 47-70 [facility] Nitrite Test strip Ql (U)Ord ered By: Javy Saul on 11-20-2024 Nitrite Ql (U) Negative Negative [facility] No Panel InformationOrdered By: Javy Saul on 11-20-2024 24 U/L <32 [facility] Nucleated red blood cell per centageOrdered By: Javy Saul on 11-20-2024 Nucleated RBC/100 WBC (Bld) [Ratio] 0 % 0-5 [facility] Organism identificationOrder ed By: Javy Saul on 11-20-2024 Microorganism identified Cx Nom (Unsp spec) Meth. resistant Staph. aureus Abnormal [facility] Partial Thromboplast Timeon 11-20-2024 aPTT Coag (Bld) [Time] 22.6 s Low 24.1-36.2 [facility] Comment on above: Performed By: #### L 503.6005, L100.0100, L300.3900, L300.4310, M200.1000, M100.636, L500.4050 ####[facility] [address] [place], [place], [address] Platelet countOrdered By: Romero Saul on 11-20-2024 Platelets (Bld) [#/Vol] 148 10*3/uL Low 150-450 [facility] Potassium measurement (mass/ volume)Ordered By: Javy Saul on 11-20-2024 Potassium (Unsp spec) [Mass/Vol] 4.5 mmol/L 3.3-5.1 [facility] Protein Test strip Ql (U)Ord ered By: Javy Saul on 11-20-2024 Protein Ql (U) Negative Negative [facility] Prothrombin Time w/INRon INR Coag (PPP) [Relative time] 1.0 {INR} Normal [facility] Comment on above: Performed By: #### L 503.6005, L100.0100, L300.3900, L300.4310, M200.1000, M100.636, L500.4050 ####[facility] [address] [place], [place], [id number] PT Coag (PPP) [Time] 13.6 s Normal 11.7-14.9 [facility] Comment on above: Performed By: #### L 503.6005, L100.0100, L300.3900, L300.4310, M200.1000, M100.636, L500.4050 ####[facility] [address] [place], [place], [address] Prothrombin timeOrdered By: Javy Saul on 11-20-2024 PT Coag (PPP) [Time] 13.6 s 11.7-14.9 [facility] RBC Auto (Bld) [#/Vol]Ordere d By: Javy Saul on 11-20-2024 RBC (Bld) [#/Vol] 4.29 10*6/uL 4.2-5.4 [facility] Respiratory pathogens detect ion panel by molecular detection methodOrdered By: Mariah Brewer on 11-20-2024 Respiratory pathogens DNA and RNA panel LUÍS+probe (Resp) [facility] Serum creatinine measurement (mass/volume)Ordered By: Javy Saul on 11-20-2024 Creatinine [Mass/Vol] 0.83 mg/dL 0.70-1.20 [facility] Serum globulin measurementOr dered By: Javy Saul on 11-20-2024 Globulin (S) [Mass/Vol] 3.4 g/dL 2.2-4.2 [facility] Serum glucose measurement (m ass/volume)Ordered By: Javy Saul on 11-20-2024 Glucose [Mass/Vol] 263 mg/dL High 70-99 [facility] Serum or plasma alanine guzman otransferase (ALT) measurementOrdered By: Javy Saul on 11-20-2024 ALT [Catalytic activity/Vol] 26 U/L <35 [facility] Serum or plasma albumin johnathon urement (mass/volume)Ordered By: Javy Saul on 11-20-2024 Albumin [Mass/Vol] 3.7 g/dL 3.5-5.0 [facility] Serum or plasma albumin/glob ulin mass ratioOrdered By: Javy Saul on 11-20-2024 Albumin/Globulin [Mass ratio] 1.1 {ratio} 0.9-2.4 [facility] Serum or plasma alkaline tabitha sphatase measurementOrdered By: Javy Saul on 11-20-2024 ALP [Catalytic activity/Vol] 175 U/L High 35-104 [facility] Serum or plasma calcium johnathon urement (mass/volume)Ordered By: Javy Saul on 11-20-2024 Calcium [Mass/Vol] 9.3 mg/dL 7.6-11.0 [facility] Serum or plasma urea nitroge n measurement (mass/volume)Ordered By: Javy Saul on 11-20-2024 Urea nitrogen [Mass/Vol] 10 mg/dL 4-19 [facility] Sodium levelOrdered By: Fransisco Saul on 11-20-2024 Sodium [Moles/Vol] 132 mmol/L Low 133-145 [facility] Spine Lumbar without Contras ton 11-20-2024 Spine Lumbar without Contrast Normal [facility] Squamous epithelial cells de tection in urine sediment by light microscopyOrdered By: Javy Saul on 11-20-2024 Epithelial cells.squamous LM Ql (Urine sed) 5-10 SEEN /hpf 11-21 [facility] Total proteinOrdered By: Evelio Saul on 11-20-2024 Protein [Mass/Vol] 7.1 g/dL 5.9-8.4 [facility] Urinalysis, Completeon 11-20 BACTERIA RARE Normal None Seen [facility] Comment on above: Order Comment: MAGEN TER SPECIMEN Performed By: #### M 100.2200, L400.0001, M100.678 ####[facility] [address] [place], [address] EPI,SQUAMOUS 5-10 SEEN Normal 11-21 [facility] Comment on above: Order Comment: MAGEN TER SPECIMEN Performed By: #### M 100.2200, L400.0001, M100.678 ####[facility] [address] [place], [address] RBC 0-5 SEEN Normal 0-5 [facility] Comment on above: Order Comment: MAGEN TER SPECIMEN Performed By: #### M 100.2200, L400.0001, M100.678 ####[facility] [address] [place], [address] WBC 0-5 SEEN Normal 0-5 [facility] Comment on above: Order Comment: MAGEN TER SPECIMEN Performed By: #### M 100.2200, L400.0001, M100.678 ####[facility] [address] [place], [address] Mucus Ql (Urine sed) 0 SEEN Normal [facility] Comment on above: Order Comment: MAGEN TER SPECIMEN Performed By: #### M 100.2200, L400.0001, M100.678 ####[facility] [address] [place], [address] Urine clarityOrdered By: Evelio Saul on 11-20-2024 Clarity (U) Clear Clear [facility] Urine color determinationOrd ered By: Javy Saul on 11-20-2024 Color (U) Straw Yellow [facility] Urine cultureOrdered By: Evelio Saul on 11-20-2024 Bacteria identified Cx Nom (U) Culture exhibits no growth. [facility] Urine glucose detectionOrder ed By: Javy Saul on 11-20-2024 Glucose Ql (U) 1000 mg/dl High Normal [facility] Urine leukocyte esterase det ection by dipstickOrdered By: Javy Saul on 11-20-2024 Leukocyte esterase Test strip Ql (U) Negative Negative [facility] Urine pHOrdered By: Javy woodward on 11-20-2024 pH (U) 6.0 [pH] 5.0 - 8.0 [facility] Urine sediment bacteria coun t by microscopy (number/high power field)Ordered By: Javy Saul on 11-20-2024 Bacteria LM.HPF (Urine sed) [#/Area] RARE /hpf None Seen [facility] Urine specific gravity measu rementOrdered By: Javy Saul on 11-20-2024 Specific gravity (U) [Rel density] 1.015 1.002-1.030 [facility] Urine urobilinogen measureme ntOrdered By: Javy Saul on 11-20-2024 Urobilinogen Ql (U) Normal mg/dl Normal [facility] White blood cell (WBC) count Ordered By: Javy Saul on 11-20-2024 WBC (Bld) [#/Vol] 9.6 10*3/uL 4.4-11.0 [facility] White blood cell countOrdere d By: Javy Saul on 11-20-2024 White blood cell count 0-5 SEEN /hpf 0-5 [facility] Pacemaker Checkon 11-09-2024 Pacemaker Check Normal [facility] Emergency Department Summary on 11-07-2024 Emergency Department Summary Normal [facility] Cardiology Visit Reporton Cardiology Visit Report Normal [facility] Internal Medicine Office Vis iton 10-18-2024 Internal Medicine Office Visit Normal [facility] Endocrinology Visit Reporton 10-15-2024 Endocrinology Visit Report Normal [facility] Laboratory - Hematology and Cell countsOrdered By: Lisseth Peñaloza on 09-07-2024 HbA1c (Bld) [Mass fraction] 10.7 % High 4.2-6.3 [facility] No Panel InformationOrdered By: Lisseth Peñaloza on 09-07-2024 10.7 % High 4.2-6.3 [facility] Internal Medicine Office Vis iton 09-06-2024 Internal Medicine Office Visit Normal [facility] Absolute lymphocyte countOrd ered By: Lisseth Peñaloza on 08-26-2024 Lymphocytes Auto (Unsp spec) [#/Vol] 1.28 10*3/uL 0.83-4.51 [facility] Absolute neutrophil countOrd ered By: Lisseth Peñaloza on 08-26-2024 Neutrophils (Bld) [#/Vol] 5.6 10*3/uL 2.0-7.7 [facility] Albumin to globulin ratioOrd ered By: Lisseth Peñaloza on 08-26-2024 Albumin/Globulin [Mass ratio] 0.8 {ratio} Low 0.9-2.4 [facility] Automated lymphocyte count a s percentage of total leukocytesOrdered By: Lisseth Peñaloza on 08-26-2024 Lymphocytes/100 WBC Auto (Unsp spec) 17.5 % Low 19-41 [facility] Basophil percentageOrdered B y: Lisseth Peñaloza on 08-26-2024 Basophils/100 WBC (Bld) 0.7 % 0-1 [facility] Bilirubin, totalOrdered By: Lisseth Peñaloza on 08-26-2024 Bilirubin [Mass/Vol] 0.20 mg/dL 0.20-1.00 [facility] Comment on above: For patients on eltr ombopag therapy, use of Dimension [place] TBIL is not recommended. Blood urea nitrogen (BUN)/cr eatinine ratioOrdered By: Lisseth Peñaloza on 08-26-2024 Urea nitrogen/Creatinine [Mass ratio] 18.6 mg/mg 10-20 [facility] CBC W/Diff, Automatedon 08-15 Absolute Lymph 1.28 X10 3/uL Normal 0.83-4.51 [facility] Comment on above: Performed By: #### L 500.4050, L100.0100, L506.1000, L500.4100, L509.6000 ####[facility] [address] [place], [address] Absolute Neut 5.6 X10 3/uL Normal 2.0-7.7 [facility] Comment on above: Performed By: #### L 500.4050, L100.0100, L506.1000, L500.4100, L509.6000 ####[facility] [address] [place], [address] Basophils/100 WBC (Bld) 0.7 % Normal 0-1 [facility] Comment on above: Performed By: #### L 500.4050, L100.0100, L506.1000, L500.4100, L509.6000 ####[facility] [address] [place], [address] Eosinophils/100 WBC (Bld) 1.0 % Normal 0-5 [facility] Comment on above: Performed By: #### L 500.4050, L100.0100, L506.1000, L500.4100, L509.6000 ####[facility] [address] [place], [address] Erythrocyte distribution width (RBC) [Ratio] 14.3 % Normal 11.6-14.6 [facility] Comment on above: Performed By: #### L 500.4050, L100.0100, L506.1000, L500.4100, L509.6000 ####[facility] [address] [place], [address] Hematocrit (Bld) [Volume fraction] 38.6 % Normal 37-47 [facility] Comment on above: Performed By: #### L 500.4050, L100.0100, L506.1000, L500.4100, L509.6000 ####[facility] [address] [place], [address] Hemoglobin (Bld) [Mass/Vol] 12.2 g/dL Normal 12.0-15.0 [facility] Comment on above: Performed By: #### L 500.4050, L100.0100, L506.1000, L500.4100, L509.6000 ####[facility] [address] [place], [address] IG% 0.400 Normal 0.0-0.9 [facility] Comment on above: Result Comment: IG% - Immature Granulocytes (promyelocytes, myelocytes andmetamyelocytes) > 1% indicates that a LEFT SHIFT is Present. Performed By: #### L 500.4050, L100.0100, L506.1000, L500.4100, L509.6000 ####[facility] [address] [place], [address] Lymphocytes/100 WBC (Bld) 17.5 % Low 19-41 [facility] Comment on above: Performed By: #### L 500.4050, L100.0100, L506.1000, L500.4100, L509.6000 ####[facility] [address] [place], [address] MCH (RBC) [Entitic mass] 28.9 pg Normal 27.0-32.0 [facility] Comment on above: Performed By: #### L 500.4050, L100.0100, L506.1000, L500.4100, L509.6000 ####[facility] [address] [place], [address] MCHC (RBC) [Mass/Vol] 31.6 g/dL Low 32-36 [facility] Comment on above: Performed By: #### L 500.4050, L100.0100, L506.1000, L500.4100, L509.6000 ####[facility] [address] [place], [address] MCV (RBC) [Entitic vol] 91.5 fL Normal 81-99 [facility] Comment on above: Performed By: #### L 500.4050, L100.0100, L506.1000, L500.4100, L509.6000 ####[facility] [address] [place], [address] Monocytes/100 WBC (Bld) 4.5 % Normal 0-10 [facility] Comment on above: Performed By: #### L 500.4050, L100.0100, L506.1000, L500.4100, L509.6000 ####[facility] [address] [place], [address] Neutrophils/100 WBC (Bld) 75.9 % High 47-70 [facility] Comment on above: Performed By: #### L 500.4050, L100.0100, L506.1000, L500.4100, L509.6000 ####[facility] [address] [place], [address] Nucleated RBC (Bld) [#/Vol] 0 10*3/uL Normal 0-5 [facility] Comment on above: Performed By: #### L 500.4050, L100.0100, L506.1000, L500.4100, L509.6000 ####[facility] [address] [place], [address] Platelet mean volume (Bld) [Entitic vol] 10.9 fL Normal 6.2-12.0 [facility] Comment on above: Performed By: #### L 500.4050, L100.0100, L506.1000, L500.4100, L509.6000 ####[facility] [address] [place], [address] Platelets (Bld) [#/Vol] 197 10*3/uL Normal 150-450 [facility] Comment on above: Performed By: #### L 500.4050, L100.0100, L506.1000, L500.4100, L509.6000 ####[facility] [address] [place], [address] RBC (Bld) [#/Vol] 4.22 10*6/uL Normal 4.2-5.4 [facility] Comment on above: Performed By: #### L 500.4050, L100.0100, L506.1000, L500.4100, L509.6000 ####[facility] [address] [place], [address] RDW SD 47.9 fl High 35.1-43.9 [facility] Comment on above: Performed By: #### L 500.4050, L100.0100, L506.1000, L500.4100, L509.6000 ####[facility] [address] [place], [address] WBC (Bld) [#/Vol] 7.3 10*3/uL Normal 4.4-11.0 [facility] Comment on above: Performed By: #### L 500.4050, L100.0100, L506.1000, L500.4100, L509.6000 ####[facility] [address] [place], [address] CORTISOL SERUMon 08-26-2024 CORTISOL 0.60 ug/dL Low 3.44-22.45 [facility] Comment on above: Result Comment: Adul t (AM) 5.27 - 22.45 ug/dL Adult (PM) 3.44 - 16.76 ug/dL Performed By: #### L 500.4050, L100.0100, L506.1000, L500.4100, L509.6000 ####[facility] [address] [place], [address] Carbon dioxide measurementOr dered By: Lisseth Peñaloza on 08-26-2024 CO2 [Moles/Vol] 28.0 mmol/L 21.0-32.0 [facility] Chloride measurementOrdered By: Lisseth Peñaloza on 08-26-2024 Chloride [Moles/Vol] 103 mmol/L 98-107 [facility] Comprehensive Metabolic Prof ilon 08-26-2024 Albumin [Mass/Vol] 3.3 g/dL Normal 3.2-5.0 [facility] Comment on above: Performed By: #### L 500.4050, L100.0100, L506.1000, L500.4100, L509.6000 ####[facility] [address] [place], [address] Albumin/Globulin [Mass ratio] 0.8 {ratio} Low 0.9-2.4 [facility] Comment on above: Performed By: #### L 500.4050, L100.0100, L506.1000, L500.4100, L509.6000 ####[facility] [address] [place], [address] ALK P 165 U/L High 45-117 [facility] Comment on above: Performed By: #### L 500.4050, L100.0100, L506.1000, L500.4100, L509.6000 ####[facility] [address] [place], [address] ALT [Catalytic activity/Vol] 31 U/L Normal 13-56 [facility] Comment on above: Performed By: #### L 500.4050, L100.0100, L506.1000, L500.4100, L509.6000 ####[facility] [address] [place], [address] AST [Catalytic activity/Vol] 19 U/L Normal 15-37 [facility] Comment on above: Performed By: #### L 500.4050, L100.0100, L506.1000, L500.4100, L509.6000 ####[facility] [address] [place], [address] Bilirubin [Mass/Vol] 0.20 mg/dL Normal 0.20-1.00 [facility] Comment on above: Result Comment: For patients on eltrombopag therapy, use of Dim[place] TBIL is not recommended. Performed By: #### L 500.4050, L100.0100, L506.1000, L500.4100, L509.6000 ####[facility] [address] [place], [address] BUN/CRE 18.6 RATIO Normal 10-20 [facility] Comment on above: Performed By: #### L 500.4050, L100.0100, L506.1000, L500.4100, L509.6000 ####[facility] [address] [place], [address] CA,Total 9.3 mg/dL Normal 8.5-10.1 [facility] Comment on above: Performed By: #### L 500.4050, L100.0100, L506.1000, L500.4100, L509.6000 ####[facility] [address] [place], [address] Chloride [Moles/Vol] 103 mmol/L Normal 98-107 [facility] Comment on above: Performed By: #### L 500.4050, L100.0100, L506.1000, L500.4100, L509.6000 ####[facility] [address] [place], [address] CO2 [Moles/Vol] 28.0 mmol/L Normal 21.0-32.0 [facility] Comment on above: Performed By: #### L 500.4050, L100.0100, L506.1000, L500.4100, L509.6000 ####[facility] [address] [place], [address] Creatinine [Mass/Vol] 0.86 mg/dL Normal 0.55-1.02 [facility] Comment on above: Result Comment: The validity of the calculated GFR GFRAA in patients over70 years has not been determined. Clinical correlation isessential. Performed By: #### L 500.4050, L100.0100, L506.1000, L500.4100, L509.6000 ####[facility] [address] [place], [address] EST GFR - AA 87 mL/min Normal >60 [facility] Comment on above: Result Comment: Afri can [place] GFR Calc Performed By: #### L 500.4050, L100.0100, L506.1000, L500.4100, L509.6000 ####[facility] [address] [place], [address] GAP 6 Normal 5-15 [facility] Comment on above: Performed By: #### L 500.4050, L100.0100, L506.1000, L500.4100, L509.6000 ####[facility] [address] [place], [address] GFR/1.73 sq M.predicted among non-blacks MDRD (S/P/Bld) [Vol rate/Area] 72 mL/min/{1.73_m2} Normal >60 [facility] Comment on above: Result Comment: Non- GFR Calc Performed By: #### L 500.4050, L100.0100, L506.1000, L500.4100, L509.6000 ####[facility] [address] [place], [address] Globulin (S) [Mass/Vol] 4.1 g/dL Normal 2.2-4.2 [facility] Comment on above: Performed By: #### L 500.4050, L100.0100, L506.1000, L500.4100, L509.6000 ####[facility] [address] [place], [address] Glucose [Mass/Vol] 281 mg/dL High 74-106 [facility] Comment on above: Result Comment: Gluc ose result greater than or equal to 200 mg/dLsuggests DIABETES MELLITUS per A.D.A. criteria. Performed By: #### L 500.4050, L100.0100, L506.1000, L500.4100, L509.6000 ####[facility] [address] [place], [address] Potassium [Moles/Vol] 4.6 mmol/L Normal 3.5-5.1 [facility] Comment on above: Performed By: #### L 500.4050, L100.0100, L506.1000, L500.4100, L509.6000 ####[facility] [address] [place], [address] Sodium [Moles/Vol] 137 mmol/L Normal 136-145 [facility] Comment on above: Performed By: #### L 500.4050, L100.0100, L506.1000, L500.4100, L509.6000 ####[facility] [address] [place], [address] T PROT 7.4 g/dL Normal 6.4-8.2 [facility] Comment on above: Performed By: #### L 500.4050, L100.0100, L506.1000, L500.4100, L509.6000 ####[facility] [address] [place], [address] Urea nitrogen [Mass/Vol] 16 mg/dL Normal 7-18 [facility] Comment on above: Performed By: #### L 500.4050, L100.0100, L506.1000, L500.4100, L509.6000 ####[facility] [address] [place], [address] Eosinophil percentageOrdered By: Lisseth Peñaloza on 08-26-2024 Eosinophils/100 WBC (Bld) 1.0 % 0-5 [facility] Erythrocyte distribution wid th ratioOrdered By: Lisseth Peñaloza on 08-26-2024 Erythrocyte distribution width (RBC) [Ratio] 14.3 % 11.6-14.6 [facility] Erythrocyte distribution wid th standard deviationOrdered By: Lisseth Peñaloza on 08-26-2024 Erythrocyte distribution width (RBC) [Ratio] 47.9 fl High 35.1-43.9 [facility] Glomerular filtration rate ( GFR) estimationOrdered By: Lisseth Peñaloza on 08-26-2024 GFR/1.73 sq M.predicted among non-blacks MDRD (S/P/Bld) [Vol rate/Area] 72 mL/min/{1.73_m2} >60 [facility] Comment on above: Non- GFR Calc Glucose measurementOrdered B y: Lisseth Peñaloza on 08-26-2024 Glucose [Mass/Vol] 281 mg/dL High 74-106 [facility] Comment on above: Glucose result great er than or equal to 200 mg/dLsuggests DIABETES MELLITUS per A.D.A. criteria. Hematocrit Auto (Bld) [Volum e fraction]Ordered By: Lisseth Peñaloza on 08-26-2024 Hematocrit (Bld) [Volume fraction] 38.6 % 37-47 [facility] Hemoglobin measurementOrdere d By: Lisseth Peñaloza on 08-26-2024 Hemoglobin (Bld) [Mass/Vol] 12.2 g/dL 12.0-15.0 [facility] High density lipoprotein (HD L) measurementOrdered By: Lisseth Peñaloza on 08-26-2024 Cholesterol in HDL [Mass/Vol] 54 mg/dL >40 [facility] Comment on above: The drugs N-Acetylcy steine and Metamizole may falsely depress this assay. Reference Range HDL <40 mg/dL Low HDL Cholesterol HDL >or= 60 mg/dL High HDL Cholesterol High density lipoprotein (HDL) measurement 54 mg/dL >40 [facility] Immature granulocytes/100 WB C Auto (Bld)Ordered By: Lisseth Peñaloza on 08-26-2024 Immature granulocytes/100 WBC (Bld) 0.400 % 0.0-0.9 [facility] Comment on above: IG% - Immature Granu locytes (promyelocytes, myelocytes and metamyelocytes) > 1% indicates that a LEFT SHIFT is Present. Laboratory - Chemistry and C hemistry - challengeOrdered By: Lisseth Peñaloza on 08-26-2024 AST [Catalytic activity/Vol] 19 U/L 15-37 [facility] Lipid Profileon 08-26-2024 Cholesterol [Mass/Vol] 155 mg/dL Normal 200 [facility] Comment on above: Result Comment: <200 mg/dL Desirable 200-240 mg/dL Borderline >240 mg/dL High Risk Performed By: #### L 500.4050, L100.0100, L506.1000, L500.4100, L509.6000 ####[facility] [address] [place], [address] Cholesterol in HDL [Mass/Vol] 54 mg/dL Normal [facility] Comment on above: Result Comment: The drugs N-Acetylcysteine and Metamizole may falselydepress this assay. Reference Range HDL <40 mg/dL Low HDL Cholesterol HDL >or= 60 mg/dL High HDL Cholesterol Performed By: #### L 500.4050, L100.0100, L506.1000, L500.4100, L509.6000 ####[facility] [address] [place], [address] Cholesterol in LDL [Mass/Vol] 81 mg/dL Normal 0-130 [facility] Comment on above: Performed By: #### L 500.4050, L100.0100, L506.1000, L500.4100, L509.6000 ####[facility] [address] [place], [address] Cholesterol in VLDL [Mass/Vol] 20 mg/dL Normal 5-40 [facility] Comment on above: Performed By: #### L 500.4050, L100.0100, L506.1000, L500.4100, L509.6000 ####[facility] [address] [place], [address] Triglyceride [Mass/Vol] 99 mg/dL Normal [facility] Comment on above: Result Comment: The drugs N-Acetylcysteine and Metamizole may falselydepress this assay.Serum Triglycerides Reference Interval Normal <150 mg/dL Borderline high 150 - 199 mg/dL High 200 - 499 mg/dL Very High > or = 500 mg/dL Performed By: #### L 500.4050, L100.0100, L506.1000, L500.4100, L509.6000 ####[facility] [address] [place], [address] Low density lipoprotein (LDL ) cholesterol measurementOrdered By: Lisseth Peñaloza on 08-26-2024 Cholesterol in LDL [Mass/Vol] 81 mg/dL 0-130 [facility] Low density lipoprotein (LDL) cholesterol measurement 81 mg/dL 0-130 [facility] MCV (mean corpuscular volume ) determinationOrdered By: Lisseth Peñaloza on 08-26-2024 MCV (RBC) [Entitic vol] 91.5 fL 81-99 [facility] Mean corpuscular hemoglobin (MCH) determinationOrdered By: Lisseth Sarahlay on 08-26-2024 MCH (RBC) [Entitic mass] 28.9 pg 27.0-32.0 [facility] Mean corpuscular hemoglobin concentration (MCHC) determinationOrdered By: Lisseth Peñaloza on 08-26-2024 MCHC (RBC) [Mass/Vol] 31.6 g/dL Low 32-36 [facility] Mean platelet volume determi nationOrdered By: Lisseth Peñaloza on 08-26-2024 Platelet mean volume (Bld) [Entitic vol] 10.9 fL 6.2-12.0 [facility] Microalb:Creat Ratio,Random URon 08-26-2024 Creatinine [Mass/Vol] 59.50 mg/dL Normal NO RANGE EST. [facility] Comment on above: Performed By: #### L 502.0250 ####[facility] [address] [place], [place], [id number] MALB:CRE 10.8 mg/g CRE Normal <30 mg/g CRE [facility] Comment on above: Performed By: #### L 502.0250 ####[facility] [address] [place], [place], [id number] MICROALBUMIN,UR 6.4 mg/L Normal NO RANGE EST. [facility] Comment on above: Performed By: #### L 502.0250 ####[facility] [address] [place], [place], [id number] Monocyte percentageOrdered B y: Lisseth Peñaloza on 08-26-2024 Monocytes/100 WBC (Bld) 4.5 % 0-10 [facility] Neutrophil percentageOrdered By: Lisseth Peñaloza on 08-26-2024 Neutrophils/100 WBC (Bld) 75.9 % High 47-70 [facility] No Panel InformationOrdered By: Lisseth Peñaloza on 08-26-2024 19 U/L 15-37 [facility] Nucleated red blood cell per centageOrdered By: Lisseth Peñaloza on 08-26-2024 Nucleated RBC/100 WBC (Bld) [Ratio] 0 % 0-5 [facility] Platelet countOrdered By: Billy Peñaloza on 08-26-2024 Platelets (Bld) [#/Vol] 197 10*3/uL 150-450 [facility] Potassium measurementOrdered By: Lisseth Peñaloza on 08-26-2024 Potassium [Moles/Vol] 4.6 mmol/L 3.5-5.1 [facility] RBC Auto (Bld) [#/Vol]Ordere d By: Lisseth Peñaloza on 08-26-2024 RBC (Bld) [#/Vol] 4.22 10*6/uL 4.2-5.4 [facility] Serum anion gap measurementO rdered By: Lisseth Peñaloza on 08-26-2024 Anion gap [Moles/Vol] 6 mmol/L 5-15 [facility] Serum globulin measurementOr dered By: Lisseth Peñaloza on 08-26-2024 Globulin (S) [Mass/Vol] 4.1 g/dL 2.2-4.2 [facility] Serum or plasma alanine guzman otransferase (ALT) measurementOrdered By: Lisseth Peñaloza on 08-26-2024 ALT [Catalytic activity/Vol] 31 U/L 13-56 [facility] Serum or plasma albumin johnathon urement (mass/volume)Ordered By: Lisseth Peñaloza on 08-26-2024 Albumin [Mass/Vol] 3.3 g/dL 3.2-5.0 [facility] Serum or plasma alkaline tabitha sphatase measurementOrdered By: Lisseth Peñaloza on 08-26-2024 ALP [Catalytic activity/Vol] 165 U/L High 45-117 [facility] Serum or plasma calcium johnathon urement (mass/volume)Ordered By: Lisseth Peñaloza on 08-26-2024 Calcium [Mass/Vol] 9.3 mg/dL 8.5-10.1 [facility] Serum or plasma cholesterol measurement (mass/volume)Ordered By: Lisseth Peñaloza on 08-26-2024 Cholesterol [Mass/Vol] 155 mg/dL <200 [facility] Comment on above: <200 mg/dL Desirable 200-240 mg/dL Borderline >240 mg/dL High Risk Serum or plasma cortisol tarun surement (mass/volume)Ordered By: Lisseth Peñaloza on 08-26-2024 Cortisol [Mass/Vol] 0.60 ug/dL Low 3.44-22.45 [facility] Comment on above: Adult (AM) 5.27 - 22 .45 ug/dL Adult (PM) 3.44 - 16.76 ug/dL Serum or plasma creatinine m easurement (mass/volume)Ordered By: Lisseth Peñaloza on 08-26-2024 Creatinine [Mass/Vol] 0.86 mg/dL 0.55-1.02 [facility] Comment on above: The validity of the calculated GFR & GFRAA in patients over 70 years has not been determined. Clinical correlation is essential. Serum or plasma urea nitroge n measurement (mass/volume)Ordered By: Lisseth Peñaloza on 08-26-2024 Urea nitrogen [Mass/Vol] 16 mg/dL 7-18 [facility] Sodium levelOrdered By: Ania Peñaloza on 08-26-2024 Sodium [Moles/Vol] 137 mmol/L 136-145 [facility] Total proteinOrdered By: Kenney Peñaloza on 08-26-2024 Protein [Mass/Vol] 7.4 g/dL 6.4-8.2 [facility] Triglycerides measurementOrd ered By: Lisseth Peñaloza on 08-26-2024 Triglyceride [Mass/Vol] 99 mg/dL <199 [facility] Comment on above: The drugs N-Acetylcy steine and Metamizole may falsely depress this assay.Serum Triglycerides Reference Interval Normal <150 mg/dL Borderline high 150 - 199 mg/dL High 200 - 499 mg/dL Very High > or = 500 mg/dL Urine creatinine measurement (mass/volume)Ordered By: Lisseth Peñaloza on 08-26-2024 Creatinine (U) [Mass/Vol] 59.50 mg/dL NO RANGE EST. [facility] Very low density lipoprotein (VLDL) cholesterol measurementOrdered By: Lisseth Peñaloza on 08-26-2024 Very low density lipoprotein (VLDL) cholesterol measurement 20 mg/dL 5-40 [facility] Vitamin D,25 Hydroxyon 08-26 Vitamin D 25-OH 67.7 ng/mL Normal [facility] Comment on above: Result Comment: Sabrina min D 25(OH) Status Range Deficiency <20 ng/mL (50nmol/L) Insufficiency 20 - 30 ng/mL (50 - 75 nmol/L) Sufficiency 30 - 100 ng/mL (75 - 250 nmol/L) Toxicity >100 ng/mL (>250 nmol/L) Performed By: #### L 500.4050, L100.0100, L506.1000, L500.4100, L509.6000 ####[facility] [address] [place], [address] White blood cell (WBC) count Ordered By: Lisseth Peñaloza on 08-26-2024 WBC (Bld) [#/Vol] 7.3 10*3/uL 4.4-11.0 [facility] Internal Medicine Office Vis ito 08-04-2024 Internal Medicine Office Visit Normal [facility] Internal Medicine Office Vis ito 05-29-2024 Internal Medicine Office Visit Normal [facility] Echo Complete W/ Contraston 05-26-2024 Echo Complete W/ Contrast Normal [facility] 12 Lead EKG performed by [facility] on 05-06-2024 12 Lead EKG performed by [facility] Normal [facility] Cardiology Visit Reporton Cardiology Visit Report Normal [facility] CNPGin 04-10-2024 CNPN Telephone ([facility]) MICHELLE JULES ([id number]) 1965 F Date Time Provider Department 04/10/24 HOMAR VASQUES [facility] During your visit today, we recorded the following information about you: Maria A Martinez 04/10/2024 3:32 PM Signed Patient's insurance no longer covers office. Removing CFM from profile Maria A Allergies As of Date: 04/10/2024 Noted Allergy Reaction ADHESIVE TAPE (ROSINS) 03/27/2006 9 - Itching LATEX, NATURAL RUBBER 09/09/2018 2 - Rash METFORMIN 07/22/2018 14 - Other: See Comments Comments: Caused arrhythmia issues SEASONAL ALLERGIES 03/01/2023 9 - Itching SIMVASTATIN 11/04/2012 14 - Other: See Comments Comments: myalgia Date Reviewed: 02/26/2024 Reviewed by: Janet Nassar LPN - Fully Assessed Reason for Visit: Patient Update [1234] Cmt: No longer a patient Prescriptions as of 04/10/2024 - carvedilol (COREG) 25 mg tablet Take 1 tablet by mouth two times a day. - atorvastatin (LIPITOR) 10 mg tablet Take 1 tablet by mouth once daily. - spironolactone (ALDACTONE) 25 mg tablet Take 1 tablet by mouth once daily. - furosemide (LASIX) 40 mg tablet Take 1 tablet by mouth every afternoon. - DULoxetine (CYMBALTA) 60 mg capsule Take 1 capsule by mouth two times a day. - dulaglutide (TRULICITY) 1.5 mg/0.5 mL pen injector Inject 1.5 mg subcutaneously one time a week. - Pramipexole 0.75 mg tablet Take 1 tablet by mouth daily at bedtime. - aspirin, enteric coated (ECOTRIN LOW STRENGTH) 81 mg EC tablet Take 1 tablet by mouth once daily. - potassium chloride ER (KLOR-CON) 20 mEq tablet - insulin lispro (HUMALOG KWIKPEN) 100 unit/mL INJECT 20 UNITS SUBCUTANEOUSLY THREE TIMES A DAY BEFORE MEALS - pantoprazole DR (PROTONIX) 40 mg tablet Take 1 tablet by mouth every 12 hours. - glyBURIDE 5 mg tablet Take 2 tablets by mouth daily with breakfast. - insulin glargine U-300 conc (TOUJEO MAX U-300 SOLOSTAR) 300 unit/mL (3 mL) inpn Inject 90 Units subcutaneously every morning. - insulin needles, DISPOSABLE, (PEN NEEDLE) 31 gauge x 11/27 Use 5 needles per dose. 5 per day for her insulin. - magnesium oxide (MAG-OX) 400 mg (241.3 mg magnesium) tablet Take 1 tablet by mouth two times a day. - ergocalciferol 50,000 unit capsule (VITAMIN D2, DRISDOL) Take 1 capsule by mouth one time a week. - gabapentin (NEURONTIN) 300 mg capsule Take 1 capsule by mouth daily at bedtime for 270 days. - flash glucose sensor (FREESTYLE LANCE 2 SENSOR) kit Use to check blood sugar before meals and at bedtime - Docusate Sodium (STOOL SOFTENER) 100 mg tab Take 1 capsule by mouth twice daily as needed - acetylcyst/zqjfixL08 /levomefol (METAFOLBIC PLUS ORAL) Take by mouth. - cetirizine (ZYRTEC) 10 mg tablet Take 1 tablet by mouth once daily as needed (for itching, sneezing or runny nose). - losartan (COZAAR) 25 mg tablet (Discontinued) Take 1 tablet by mouth once daily. 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.* Vitamin D deficiency [E55.9] Family history of colon cancer [Z80.0] Cardiomyopathy, nonischemic (HCC) [I42.8] 04/14/2013 Abnormality of gait [R26.9] 05/04/2014 Ganglion cyst of right foot [M67.471] 09/09/2015 Biventricular ICD (implantable cardioverter-def* Uncontrolled type 2 diabetes mellitus with diab*12/21/2015 Restless leg syndrome [G25.81] 02/09/2016 Peroneal tendinitis [M76.70] 07/12/2016 Pain in joint, ankle and foot [M25.579] 07/12/2016 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 04-03-2024 CNPN Telephone ([facility]) MICHELLE JULES ([id number]) 1965 F Date Time Provider Department 04/03/24 [facility] RUBIN [facility] During your visit today, we recorded the following information about you: Radha Bradley 04/03/2024 10:10 AM Signed No Show Documentation Michelle Jules no showed for an appointment on 04.02.24 with Sonia Cr RPh at [facility]. She was scheduled for follow up. I N/A with the patient regarding her missed appointment. Michelle stated the reason that she missed her appointment was because n/a . Resources discussed/offered to patient: n/a No show determined to be fault of patient: N/A This is the patients first no show in the last 12 months. Patient was rescheduled for n/a. Letter mailed : Yes Is this the Third or Fourth No Show? Linh Bradley April 03, 2024 10:06 AM Allergies As of Date: 04/03/2024 Noted Allergy Reaction ADHESIVE TAPE (ROSINS) 03/27/2006 9 - Itching LATEX, NATURAL RUBBER 09/09/2018 2 - Rash METFORMIN 07/22/2018 14 - Other: See Comments Comments: Caused arrhythmia issues SEASONAL ALLERGIES 03/01/2023 9 - Itching SIMVASTATIN 11/04/2012 14 - Other: See Comments Comments: myalgia Date Reviewed: 02/26/2024 Reviewed by: Janet Nassar LPN - Fully Assessed Reason for Visit: No Show [1558] Prescriptions as of 04/03/2024 - spironolactone (ALDACTONE) 25 mg tablet Take 1 tablet by mouth once daily. - DULoxetine (CYMBALTA) 60 mg capsule Take 1 capsule by mouth two times a day. - atorvastatin (LIPITOR) 10 mg tablet Take 1 tablet by mouth once daily. - carvedilol (COREG) 25 mg tablet Take 1 tablet by mouth two times a day. - furosemide (LASIX) 40 mg tablet take 1 tablet by mouth daily - dulaglutide (TRULICITY) 1.5 mg/0.5 mL pen injector Inject 1.5 mg subcutaneously one time a week. - Pramipexole 0.75 mg tablet Take 1 tablet by mouth daily at bedtime. - aspirin, enteric coated (ECOTRIN LOW STRENGTH) 81 mg EC tablet Take 1 tablet by mouth once daily. - potassium chloride ER (KLOR-CON) 20 mEq tablet - insulin lispro (HUMALOG KWIKPEN) 100 unit/mL INJECT 20 UNITS SUBCUTANEOUSLY THREE TIMES A DAY BEFORE MEALS - pantoprazole DR (PROTONIX) 40 mg tablet Take 1 tablet by mouth every 12 hours. - glyBURIDE 5 mg tablet Take 2 tablets by mouth daily with breakfast. - insulin glargine U-300 conc (TOUJEO MAX U-300 SOLOSTAR) 300 unit/mL (3 mL) inpn Inject 90 Units subcutaneously every morning. - insulin needles, DISPOSABLE, (PEN NEEDLE) 31 gauge x 5/16 Use 5 needles per dose. 5 per day for her insulin. - magnesium oxide (MAG-OX) 400 mg (241.3 mg magnesium) tablet Take 1 tablet by mouth two times a day. - ergocalciferol 50,000 unit capsule (VITAMIN D2, DRISDOL) Take 1 capsule by mouth one time a week. - gabapentin (NEURONTIN) 300 mg capsule Take 1 capsule by mouth daily at bedtime for 270 days. - flash glucose sensor (FREESTYLE LANCE 2 SENSOR) kit Use to check blood sugar before meals and at bedtime - Docusate Sodium (STOOL SOFTENER) 100 mg tab Take 1 capsule by mouth twice daily as needed - acetylcyst/eucntbL29 /levomefol (METAFOLBIC PLUS ORAL) Take by mouth. - cetirizine (ZYRTEC) 10 mg tablet Take 1 tablet by mouth once daily as needed (for itching, sneezing or runny nose). - losartan (COZAAR) 25 mg tablet (Discontinued) Take 1 tablet by mouth once daily. 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.* Vitamin D deficiency [E55.9] Family history of colon cancer [Z80.0] Cardiomyopathy, nonischemic (HCC) [I42.8] 04/14/2013 Abnormality of gait [R26.9] 05/04/2014 Ganglion cyst of right foot [M67.471] 09/09/2015 Biventricular ICD (implantable cardioverter-def* Uncontrolled type 2 diabetes mellitus with diab*12/21/2015 Restless leg syndrome [G25.81] 02/09/2016 Peroneal tendinitis [M76.70] 07/12/2016 Pain in joint, ankle and foot [M25.579] 07/12/2016 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 CNOVon 02-26-2024 CNOV Office Visit ([facility]) MICHELLE JULES ([id number]) 1965 F Date Time Provider Department 02/26/24 2:00 PM [facility] During your visit today, we recorded the following information about you: Temperature Pulse Respiration Blood pressure 97.6 degrees 72/minute 16/minute 125/78 Weight Height 110.7 kg 1.753 m Sonia Cr, [facility] 03/02/2024 10:19 AM Signed REASON FOR CONSULT: diabetes Referring Provider: Dr. Thornton Date of Consult: 08/30/2023 Date of last appt with FM provider: 12/24/2023 Michelle Jules is a 58 year old female who is presenting for follow up visit in person. Patient consents to pharmacy collaborative practice agreement. HPI: Has been out of the [employer] for a week Picked up the trulicity, has not started Historically was interested in changing to trulicity due to increase potential for weight loss CGM findings as below No issues with sensor adhesion since placing on abdomen No issues with reader No hypoglycemic events in recent months Denies s/s of hyperglycemia CGM findings: Average glucose, 14 days 12 am - 6 am: 235 6 am - 12 pm: 271 12 pm - 6 pm: 321 6 pm - 12 am: 286 Time in range, 14 days: 9% High: 91% Low: 0% Number of hypoglycemic events in last 14 days: 0 Sensor usage: 83% Feels feet are swollen, no pitting edema in legs noted per technical document writer Regimen as below Confirms insulin pen goes down to 0 when injects No active nausea Denies missed doses; reports no missed doses for 2 months Current Diabetes Medications Toujeo - 90 units daily Humalog 20 units TID Glyburide - 5 mg, 2 pills in AM On BLAIRE/ARB: No, ACR <30 On Statin: Yes On aspirin: Yes Prior intolerance to metformin Denies food insecurity Ex- and his mother do shopping Tried eggs or oatmeal instead of bread or cereal Unclear how often does this instead of carb-based content Snacking: trying to decrease 1 glass of pop per day, 1 glass of tea (decreased) Few days did none; still working on this Limited activity; trying to increase walking Barriers: weather, caring for family members Does not belong to gym - cost limits option Working on [email or web address] application Past medical, family and social history reviewed and updated. Payor: [employer] / Plan: [facility] MEDICAID [facility] / Product Type: Medicaid / REVIEW OF SYSTEMS Review of Systems Constitutional: Negative for chills and fever. VITALS: BP 125/78 Pulse 72 Temp 36.4 ?C (97.6 ?F) (Temporal) Resp 16 Ht 5' 9 (1.753 m) Wt 244 lb (110.7 kg) SpO2 97% BMI 36.03 kg/m? EXAM: Last 3 Encounter BP Readings: Date: BP: 09/12/2023 115/70 08/30/2023 118/77 05/20/2023 127/76 Wt: 235 lb 12.8 oz (107 kg) BMI: 34.82 kg/(m2) LABS: Reviewed Hemoglobin A1C Date Value Ref Range Status 01/29/2024 10.2 (H) 4.3 - 5.6 % Final Comment: [place] [employer] guidelines indicate that patients with HgbA1c in the range 5.7-6.4% are at increased risk for development of diabetes, and intervention by lifestyle modification may be beneficial. HgbA1c greater or equal to 6.5% is considered diagnostic of diabetes. Lab Results Component Value Date CHOL 177 01/25/2023 CHOL 147 07/21/2018 LDL 99 01/25/2023 LDL 63 07/21/2018 HDL 38 01/25/2023 HDL 38 07/21/2018 TG 201 01/25/2023 TG 230 07/21/2018 Albumin/Creat Ratio (mg/g) Date Value 01/25/2023 7 ASSESSMENT/PLAN 1. Type 2 diabetes mellitus with diabetic neuropathy, with long-term current use of insulin (HCC) - ICD9: 250.60, 357.2, V58.67, ICD10: E11.40, Z79.4 (primary diagnosis) SMBG elevated though has been out of GLP1. No nausea - Continue current medications, start truclity - Statin prescribed - atorvastatin - Blood glucose monitoring on a continuous glucose monitoring schedule - Counseled on healthy diet and regular exercise - Discussed need for and benefit of weight loss. BMI 36.03 kg/(m2) - Discussed diabetic education issues of diabetes complications and monitoring required, hypoglycemic/hypergl ycemic symptoms, and medication-specific side effects and monitoring - limit carb-based options; encouraged higher protein intake - LIPID PANEL BASIC - ALBUMIN/CREATININE RATIO, URINE 2. Uses self-applied continuous glucose monitoring device - ICD9: V49.89, ICD10: Z97.8 Encouraged ongoing use - bring reader to next appt 3. Diabetes education, encounter for - ICD9: V65.49, ICD10: Z71.89 - encouraged breakfast based breakfast - complete application for [email or web address] 4. Encounter for medication counseling - ICD9: V65.49, ICD10: Z71.89 Reviewed administration steps for trulicity, pt able to demo with first injection 5. Preventative health care - ICD9: V70.0, ICD10: Z00.00 -schedule mammogram and colonoscopy 6. Complex care coordination - ICD9: V65.49, ICD10: Z71.89 - message sent to provider and intensive care anaesthetist regarding f (more content not included)... Normal [facility] ED NOTEon 02-24-2024 ED NOTE HNO ID: [id number] Author: SILVANA HOLGUIN RN Service: Emergency Medicine Author Type: Registered Nurse Type: ED Notes Filed: 02/25/2024 19:17 Note Text: Emergency Services: ED Call Back Questionnaire SERVICE DATE: 02/24/2024 Are you feeling better? Yes Any questions about discharge instructions and follow-up care? No Were you able to make a follow up appointment? Yes Do you have any further questions? No Is there anything that we could have done differently to improve your ED visit? No SIGNATURE: Silvana Holguin RN PATIENT NAME: Michelle Jules DATE: February 25, 2024 TIME: 7:[address] [facility] ED PROV NOTEon 02-24-2024 ED PROV NOTE HNO ID: [id number] Author: PEPITO NICOLE MD Service: Emergency Medicine Author Type: Physician Type: ED Provider Notes Filed: 03/16/2024 09:23 Note Text: ED Provider Note Patient Name: Michelle Jules : 1965 SERVICE DATE: 02/24/24 History Patient presents with: Eye Complaint The patient is a 58-year-old female presenting today with complaint of eye irritation. Patient states the symptoms started this afternoon. She thinks she may have gotten a piece of drywall stuck in her eye and it might be up underneath of the medial portion of the upper eyelid. She states she is tried flushing it. She has not been able to find any foreign body underneath of her eyelid. She comes in to make sure that there is no foreign bodies within her eye as the irritation has continued despite her efforts at home. She does not wear contacts. No vision changes. PAST MEDICAL HISTORY 04/2013: Cardiomyopathy, nonischemic (HCC) No date: Degenerative joint disease involving multiple joints Comment: shoulders, right knee No date: Essential hypertension, benign No date: Family history of colon cancer Comment: 5y screening cycle No date: GERD (gastroesophageal reflux disease) 02/09/2016: Restless leg syndrome No date: Snoring No date: Vitamin D deficiency PAST SURGICAL HISTORY 2007: APPENDECTOMY No date: ARTHROSCOPY KNEE DIAGNOSTIC W/WO SYNOVIAL BX SPX Comment: right 10/08/06: COLONOSCOPY FLX DX W/COLLJ SPEC WHEN PFRMD 09/18/2011: COLONOSCOPY FLX DX W/COLLJ SPEC WHEN PFRMD Comment: Colonoscopy 09/27/2016: COLONOSCOPY FLX DX W/COLLJ SPEC WHEN PFRMD Comment: Colonoscopy 02/06/12: DSTRJ LESION PENIS SIMPLE CHEMICAL Comment: Ablation anal condyomata 09-01-15: EGD 09/03/13: INSERT DUAL CHAMBER ICD Comment: pacemaker/defibulato r 10/22/06: LAPAROSCOPIC APPENDECTOMY -: PAST SURGICAL HISTORY OF; Right Comment: ganglion cyst 2016: PAST SURGICAL HISTORY OF; Left Comment: cyst removed from left foot 03/12/2018: REMOVEANDREPLACE ICD PULSE GEN MULTI LEAD Comment: SCRUBBER SYSTEM 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 age 6: TONSILLECTOMY AND ADENOIDECTOMY HX 2006: TOTAL ABDOMINAL HYSTERECT W/WO RMVL TUBE OVARY Comment: menorrhagia/dysmenor niurka (negative for cancer) -- [place] FAMILY HISTORY Problem Relation Age of Onset Colon Cancer Father in early 50s Heart Father 55 [place] Breast Cancer Mother in 50s Diabetes Mother Coronary Artery Disease Mother age early-mid 60's Colon Cancer Paternal Grandmother other (epilepsy) Son Breast Cancer Daughter other (heart murmur) Daughter Social History Tobacco Use Smoking status: Never Smokeless tobacco: Never Vaping Use Vaping status: Never Used Substance and Sexual Activity Alcohol use: No Comment: seldom Drug use: No Sexual activity: Not Currently Partners: Male ALLERGIES Allergen Reactions Adhesive Tape (Natty* Itching Latex, Natural Rubb* Rash Metformin Other: See Comments Caused arrhythmia issues Seasonal Allergies Itching Simvastatin Other: See Comments myalgia Review of Systems Constitutional: Negative for activity change, appetite change, chills, fatigue and fever. HENT: Negative for congestion, ear pain, rhinorrhea and sore throat. Eyes: Positive for pain and redness. Respiratory: Negative for cough and shortness of breath. Cardiovascular: Negative for chest pain and palpitations. Gastrointestinal: Negative for abdominal pain, diarrhea, nausea and vomiting. Genitourinary: Negative for dysuria, frequency and urgency. Musculoskeletal: Negative for arthralgias and myalgias. Skin: Negative for rash and wound. Neurological: Negative for dizziness and headaches. Psychiatric/Behavior al: Negative for self-injury and suicidal ideas. All other systems reviewed and are negative. Physical Exam Vitals [02/24/241956] BP Pulse Temp Temp src Resp SpO2 Weight Height 141/81 72 36.2 ?C (97.2 ?F) Temporal 16 97 % -- -- Physical Exam Vitals and nursing note reviewed. Constitutional: General: She is not in acute distress. Appearance: She is well-developed. HENT: Head: Normocephalic and atraumatic. Nose: Nose normal. Mouth/Throat: Mouth: Mucous membranes are moist. Eyes: Pupils: Pupils are equal, round, and reactive to light. Comments: Evaluation of the patient's right eye shows some erythema with injection to the medial aspect of the right eye. There is some mild erythema to the upper eyelid itself with some very very mild swelling to the medial right upper eyelid from where the patient keeps rubbing it. In evaluating the eyelid and flipping it inside out I do not see any foreign bodies. Pulling away from the eye itself there is no foreign bodies in the corners. I did flush the eye. Fluorescein stain to her eye as well looking for any abrasions and I do not see any corneal or scleral abrasions at this time. Cardiovascular: Rate and Rhythm: Normal rate and regular rhythm. Heart sounds: Suma (more content not included)... [facility] ([facility]) JARONMICHELLE ([id number]) 1965 F Date Time Provider Department 02/20/24 [facility] During your visit today, we recorded the following information about you: Chelsy Eckert LPN 02/20/2024 5:25 PM Signed Patient states pharmacy is unable to get the Victoza in, what is she supposed to do? Please advise. LALA Knight Aviva, MD 02/21/2024 3:55 PM Signed Will message patient to see if there is another preferred pharmacy. Called patient on phone number in Chart and message stating [employer] your call cannot be completed. MD Rogerio Nina Stella, LPN 02/24/2024 5:38 PM Addendum Pt called back: She is willing to have the Victoza sent to [facility] but she can not picking table worker the med until Sat when she is here to see Dr. Cr. She is also willing to change to Trulicity. She reports that without the Victoza her sugars are running between 200-300 and going higher every day. She is taking her Toujeo 90 units in the am and then Humalog 20 units with meals. Please advise. Sonia Cr, [facility] 02/25/2024 9:25 AM Signed Changing victoza to trulicity - 1.5 mg weekly. She can start any day of the week. Changing as this may help with better SMBG control and weight loss vs victoza. Monitor for N/V/D/C. Injection is slightly different. We can mychart message her a video or show at pharmd appt (pt has not been actively using [employer] however). Big difference between this and victoza is it is once WEEKLY not daily. Attempted telephone outreach to pt - unable to reach. [facility] intensive care anaesthetist who works with pt. Please notify if possible or can discuss with her at pharmd appt. Please let me know if you need anything else. Sonia Cr [facility] Sonia Cr [facility] 02/25/2024 9:25 AM Signed Addended by: SONIA CR on: 02/25/2024 09:25 AM Modules accepted: Williams Covington MD 02/25/2024 9:41 AM Signed I just called patient and call does not go through. Thank you for the update, Dr. Cr! I can send the Trulicity to her pharmacy, but I know it would be better to discuss with her first at least. Thank you! MD Rogerio Nina Stella, LPN 02/25/2024 3:04 PM Signed I just realized she called from a different number yesterday. Phone number now updated. [phone]. It is not her phone but she has access to it. Her phone number is not on. I instructed Michelle to picking table worker her Trulicity and bring it to her appt so that Dr. Cr can instruct her on how to use it. Pt made aware that this is a weekly injection and not a daily injection. She agreed to picking table worker the script prior to her appt. She is agreeable to the plan. Allergies As of Date: 02/20/2024 Noted Allergy Reaction ADHESIVE TAPE (ROSINS) 03/27/2006 9 - Itching LATEX, NATURAL RUBBER 09/09/2018 2 - Rash METFORMIN 07/22/2018 14 - Other: See Comments Comments: Caused arrhythmia issues SEASONAL ALLERGIES 03/01/2023 9 - Itching SIMVASTATIN 11/04/2012 14 - Other: See Comments Comments: myalgia Date Reviewed: 01/29/2024 Reviewed by: Georgette Ness LPN - Fully Assessed Reason for Visit: Patient Question [1477] Visit Diagnosis:Type 2 diabetes mellitus with diabetic neuropathy, with long-term current use of insulin (HCC) [E11.40, Z79.4] Order(s):dulaglutide (TRULICITY) 1.5 mg/0.5 mL pen injectorInject 1.5 mg subcutaneously one time a week.Disp: 4 EachRfl: 1 Prescriptions as of 02/26/2024 - dulaglutide (TRULICITY) 1.5 mg/0.5 mL pen injector Inject 1.5 mg subcutaneously one time a week. - Pramipexole 0.75 mg tablet Take 1 tablet by mouth daily at bedtime. - aspirin, enteric coated (ECOTRIN LOW STRENGTH) 81 mg EC tablet Take 1 tablet by mouth once daily. - spironolactone (ALDACTONE) 25 mg tablet - potassium chloride ER (KLOR-CON) 20 mEq tablet - insulin lispro (HUMALOG KWIKPEN) 100 unit/mL INJECT 20 UNITS SUBCUTANEOUSLY THREE TIMES A DAY BEFORE MEALS - pantoprazole DR (PROTONIX) 40 mg tablet Take 1 tablet by mouth every 12 hours. - glyBURIDE 5 mg tablet Take 2 tablets by mouth daily with breakfast. - insulin glargine U-300 conc (TOUJEO MAX U-300 SOLOSTAR) 300 unit/mL (3 mL) inpn Inject 90 Units subcutaneously every morning. - insulin needles, DISPOSABLE, (PEN NEEDLE) 31 gauge x 5/16 Use 5 needles per dose. 5 per day for her insulin. - DULoxetine (CYMBALTA) 60 mg capsule Take 1 capsule by mouth two times a day. - magnesium oxide (MAG-OX) 400 mg (241.3 mg magnesium) tablet Take 1 tablet by mouth two times a day. - ergocalciferol 50,000 unit capsule (VITAMIN D2, DRISDOL) Take 1 capsule by mouth one time a week. - gabapentin (NEURONTIN) 300 mg capsule Take 1 capsule by mouth daily at bedtime for 270 days. - flash glucose sensor (FREESTYLE LANCE 2 SENSOR) kit Use to check blood sugar before meals and at bedtime - Docusate Sodium (STOOL SOFTENER) 100 mg tab Take 1 (more content not included)... Normal [facility] Yandel 02-12-2024 [facility] Telephone ([facility]) MICHELLE JULES ([id number]) 1965 F Date Time Provider Department 02/12/24 [facility] During your visit today, we recorded the following information about you: Karthik Cazares 02/12/2024 3:05 PM Signed The patient/caregiver contacted the office, requesting refills of liraglutide (VICTOZA) 0.6 mg/ 0.1 ml subcutaneous pen injector . Patient prefers prescriptions to be e prescribed to [facility] - [address] [place] [address] - [address] - [phone] Last Office Visit Date: 01/29/2024 Last [facility] Visit: Visit date not found Future Appointment: 02/26/2024 Manny Washington MD 02/13/2024 8:44 AM Signed Addended by: MANNY EVANS on: 02/13/2024 08:44 AM Modules accepted: Orders Allergies As of Date: 02/12/2024 Noted Allergy Reaction ADHESIVE TAPE (ROSINS) 03/27/2006 9 - Itching LATEX, NATURAL RUBBER 09/09/2018 2 - Rash METFORMIN 07/22/2018 14 - Other: See Comments Comments: Caused arrhythmia issues SEASONAL ALLERGIES 03/01/2023 9 - Itching SIMVASTATIN 11/04/2012 14 - Other: See Comments Comments: myalgia Date Reviewed: 01/29/2024 Reviewed by: Georgette Ness LPN - Fully Assessed Reason for Visit: Rx Refills [128] Visit Diagnosis:Type 2 diabetes mellitus with diabetic neuropathy, with long-term current use of insulin (HCC) [E11.40, Z79.4] Order(s):liraglutide (VICTOZA) 0.6 mg/ 0.1 ml subcutaneous pen injectorInject 1.2 mg subcutaneously once daily.Disp: 3 mLRfl: 1 Prescriptions as of 02/13/2024 - liraglutide (VICTOZA) 0.6 mg/ 0.1 ml subcutaneous pen injector Inject 1.2 mg subcutaneously once daily. - spironolactone (ALDACTONE) 25 mg tablet - potassium chloride ER (KLOR-CON) 20 mEq tablet - insulin lispro (HUMALOG KWIKPEN) 100 unit/mL INJECT 20 UNITS SUBCUTANEOUSLY THREE TIMES A DAY BEFORE MEALS - pantoprazole DR (PROTONIX) 40 mg tablet Take 1 tablet by mouth every 12 hours. - glyBURIDE 5 mg tablet Take 2 tablets by mouth daily with breakfast. - insulin glargine U-300 conc (TOUJEO MAX U-300 SOLOSTAR) 300 unit/mL (3 mL) inpn Inject 90 Units subcutaneously every morning. - insulin needles, DISPOSABLE, (PEN NEEDLE) 31 gauge x 11/27 Use 5 needles per dose. 5 per day for her insulin. - DULoxetine (CYMBALTA) 60 mg capsule Take 1 capsule by mouth two times a day. - magnesium oxide (MAG-OX) 400 mg (241.3 mg magnesium) tablet Take 1 tablet by mouth two times a day. - Pramipexole 0.75 mg tablet Take 1 tablet by mouth daily at bedtime. - ergocalciferol 50,000 unit capsule (VITAMIN D2, DRISDOL) Take 1 capsule by mouth one time a week. - gabapentin (NEURONTIN) 300 mg capsule Take 1 capsule by mouth daily at bedtime for 270 days. - flash glucose sensor (FREESTYLE LANCE 2 SENSOR) kit Use to check blood sugar before meals and at bedtime - Docusate Sodium (STOOL SOFTENER) 100 mg tab Take 1 capsule by mouth twice daily as needed - acetylcyst/[id number] /levomefol (METAFOLBIC PLUS ORAL) Take by mouth. - furosemide (LASIX) 40 mg tablet Take 1 tablet by mouth once daily. - cetirizine (ZYRTEC) 10 mg tablet Take 1 tablet by mouth once daily as needed (for itching, sneezing or runny nose). - losartan (COZAAR) 25 mg tablet (Discontinued) Take 1 tablet by mouth once daily. - blood sugar diagnostic (ICVRxUCH ULTRA TEST) test strip USE TO TEST BLOOD SUGAR THREE TIMES A DAY - aspirin, enteric coated (ECOTRIN LOW STRENGTH) 81 mg EC tablet Take 1 tablet by mouth once daily. - atorvastatin (LIPITOR) 10 mg tablet Take 1 tablet by mouth once daily. - carvedilol (COREG) 25 mg tablet Take 1 tablet by mouth twice daily. 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.* Vitamin D deficiency [E55.9] Family history of colon cancer [Z80.0] Cardiomyopathy, nonischemic (HCC) [I42.8] 04/14/2013 Abnormality of gait [R26.9] 05/04/2014 Ganglion cyst of right foot [M67.471] 09/09/2015 Biventricular ICD (implantable cardioverter-def* Uncontrolled type 2 diabetes mellitus with diab*12/21/2015 Restless leg syndrome [G25.81] 02/09/2016 Peroneal tendinitis [M76.70] 07/12/2016 Pain in joint, ankle and foot [M25.579] 07/12/2016 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 Normal [facility] CNOVon 01-29-2024 CNOV Office Visit ([facility]) MICHELLE JULES ([id number]) 1965 F Date Time Provider Department 01/29/24 11:20 AM [facility] During your visit today, we recorded the following information about you: Temperature Pulse Blood pressure Weight 96.6 degrees 90/minute 113/69 109.3 kg Height 1.753 m Tayo Sonia, [facility] 01/29/2024 1:57 PM Signed REASON FOR CONSULT: diabetes Referring Provider: Dr. Thornton Date of Consult: 08/30/2023 Date of last appt with FM provider: 12/24/2023 Michelle Jules is a 58 year old female who is presenting for follow up visit in person. Patient consents to pharmacy collaborative practice agreement. HPI: Confirmed nausea improved Noticed improvement with decrease in victoza Reports CGM has not been working Has not been checking SMBG Denies s/s of hyperglycemia Unclear when she last checked Not doing fingerstick - POC BG Denies s/s of hypoglycemia recently Historically treats with candy Regimen as below Victoza change as above Confirms insulin pen goes down to 0 when injects Denies missed doses; reports no missed doses for 2 months Reports put note on fridge to help Current Diabetes Medications Toujeo - 90 units daily Humalog 20 units TID Victoza - 1.2 mg daily Glyburide - 5 mg BID On BLAIRE/ARB: No, ACR <30 On Statin: Yes On aspirin: Yes Prior intolerance to metformin Denies food insecurity Ex- and his mother do shopping She does the cooking Meals continue to be inconsistent BEDS7: negative 1 glass of pop per day, 1 glass of tea (decreased) 24 hour recall: Breakfast this morning - 2 pieces of toast, 1 with PB, 1 with butter Lunch yesterday - skipped Dinner yesterday - grilled cheese with low fat turkey, handful of chips Snacks - wheat crackers (5) Limited activity; trying to increase walking Barriers: weather, caring for family members Does not belong to gym - cost limits option Going on trip to [place] end of this month Follows Past medical, family and social history reviewed and updated. Payor: [employer] / Plan: [employer] [facility] / Product Type: Medicaid / REVIEW OF SYSTEMS Review of Systems Constitutional: Negative for chills and fever. VITALS: BP 113/69 Pulse 90 Temp (!) 35.9 ?C (96.6 ?F) Ht 5' 9 (1.753 m) Wt 241 lb (109.3 kg) BMI 35.59 kg/m? EXAM: Last 3 Encounter BP Readings: Date: BP: 09/12/2023 115/70 08/30/2023 118/77 05/20/2023 127/76 Wt: 235 lb 12.8 oz (107 kg) BMI: 34.82 kg/(m2) LABS: Reviewed Hemoglobin A1C (POCT) Date Value Ref Range Status 12/24/2023 10.7 (A) 4.3 - 5.6 % Final Comment: Location:[facility], [address] [place] [address], [id number] Point of care (POC) Hemoglobin A1c (HGBA1C) testing is intended to assess glucose control and provide a management tool for patients known to have diabetes and their healthcare providers. Target HGBA1C levels may depend on specific clinical circumstances. POC HGBA1C is not intended for use as a diagnostic or screening test; laboratory-based testing should be used for diagnostic purposes. The following information is supplemental and may not be applicable to specific diabetes management situations: The POC device sas bi developer provides a normal range of 4.2% to 6.5% for the HGBA1C POC test. However, the [place] [employer] guidelines indicate that patients with HGBA1C in the range of 5.7% to 6.4% are at increased risk for development of diabetes and that intervention by lifestyle modification may be beneficial. A HGBA1C level greater than or equal to 6.5% is considered diagnostic of diabetes, pending confirmatory testing. Use of HGBA1C testing to evaluate glucose control may not be appropriate for patients with hemoglobin variants or other conditions (e.g. anemia) that alter red blood cell lifespan. Lab Results Component Value Date CHOL 177 01/25/2023 CHOL 147 07/21/2018 LDL 99 01/25/2023 LDL 63 07/21/2018 HDL 38 01/25/2023 HDL 38 07/21/2018 TG 201 01/25/2023 TG 230 07/21/2018 Albumin/Creat Ratio (mg/g) Date Value 01/25/2023 7 ASSESSMENT/PLAN 1. Type 2 diabetes mellitus with diabetic neuropathy, with long-term current use of insulin ([facility]) - ICD9: 250.60, 357.2, V58.67, ICD10: E11.40, Z79.4 (primary diagnosis) - Improving control; however, unable to make changes today based on no updated SMBG. Interested in wt loss. History of nausea on higher doses of victoza. Could change to trulicity but will discuss in 02/2024 as she does not want nausea with upcoming vacation - trulicity change could cause nausea - Continue current medications - Statin prescribed - atorvastatin - Blood glucose monitoring on a continuous glucose monitoring schedule - Counseled on healthy diet and regular exercise - Discussed need for and benefit of weight loss. BMI 35 (more content not included)... Normal [facility] HbA1c (Bld)on 01-29-2024 Average glucose Estimated from glycated hemoglobin (Bld) [Mass/Vol] 246 mg/dL Normal [facility] Comment on above: Order Comment: Maty javed Type: BLOOD SPECIMENOrdering Facility: [facility] Address: [address] [place] [address] Result Comment: eAG: (Estimated average glucose) is a calculated value from HgbA1c and is medical field representative of the average blood glucose level in the last 2-3 month period. Performed By: #### 5 5454-3 ####[facility] LABCLIA [id number] [place] [address] [place] HbA1c (Bld) [Mass fraction] 10.2 % High 4.3-5.6 [facility] Comment on above: Order Comment: Maty javed Type: BLOOD SPECIMENOrdering Facility: [facility] Address: [address] [place] [address] Result Comment: [place] Diabetes Association guidelines indicate that patients with HgbA1c in the range 5.7-6.4% are at increased risk for development of diabetes, and intervention by lifestyle modification may be beneficial. HgbA1c greater or equal to 6.5% is considered diagnostic of diabetes. Performed By: #### 5 5454-3 ####[facility] LABCLIA [id number] [place] [address] [place] 12 Lead EKGon 01-12-2024 12 Lead EKG Normal [facility] Basic Metabolic Profile (BMP )on 01-12-2024 BUN/CRE 16.9 RATIO Normal 10-20 [facility] Comment on above: Order Comment: 'TROP ' Serial specimen #1, #2 or #3: 1 Performed By: #### L [id number], L500.2500, L100.0100 ####[facility] [id number] [place], [address] CA,Total 9.2 mg/dL Normal 8.5-10.1 [facility] Comment on above: Order Comment: 'TROP ' Serial specimen #1, #2 or #3: 1 Performed By: #### L [id number], L500.2500, L100.0100 ####[facility] [address] [place], [address] Chloride [Moles/Vol] 104 mmol/L Normal 98-107 [facility] Comment on above: Order Comment: 'TROP ' Serial specimen #1, #2 or #3: 1 Performed By: #### L [id number], L500.2500, L100.0100 ####[facility] [address] [place], [address] CO2 [Moles/Vol] 30.0 mmol/L Normal 21.0-32.0 [facility] Comment on above: Order Comment: 'TROP ' Serial specimen #1, #2 or #3: 1 Performed By: #### L [id number], L500.2500, L100.0100 ####[facility] [address] [place], [address] Creatinine [Mass/Vol] 0.95 mg/dL Normal 0.55-1.02 [facility] Comment on above: Order Comment: 'TROP ' Serial specimen #1, #2 or #3: 1 Result Comment: The validity of the calculated GFR GFRAA in patients over70 years has not been determined. Clinical correlation isessential. Performed By: #### L [id number], L500.2500, L100.0100 ####[facility] [address] [place], [address] ECRCL 88.87 ml/min Normal [facility] Comment on above: Order Comment: 'TROP ' Serial specimen #1, #2 or #3: 1 Performed By: #### L [id number], L500.2500, L100.0100 ####[facility] [address] [place], [address] EST GFR - AA 78 mL/min Normal >60 [facility] Comment on above: Order Comment: 'TROP ' Serial specimen #1, #2 or #3: 1 Result Comment: Afri can [place] GFR Calc Performed By: #### L [id number], L500.2500, L100.0100 ####[facility] [address] [place], [address] GAP 4 Low 5-15 [facility] Comment on above: Order Comment: 'TROP ' Serial specimen #1, #2 or #3: 1 Performed By: #### L [id number], L500.2500, L100.0100 ####[facility] [id number] [place], [address] GFR/1.73 sq M.predicted among non-blacks MDRD (S/P/Bld) [Vol rate/Area] 64 mL/min/{1.73_m2} Normal >60 [facility] Comment on above: Order Comment: 'TROP ' Serial specimen #1, #2 or #3: 1 Result Comment: Non- GFR Calc Performed By: #### L 501.4020, L500.2500, L100.0100 ####[facility] [address] [place], [address] Glucose [Mass/Vol] 172 mg/dL High 74-106 [facility] Comment on above: Order Comment: 'TROP ' Serial specimen #1, #2 or #3: 1 Result Comment: Fast ing Glucose result greater than or equal to 126 mg/dLsuggests DIABETES MELLITUS per A.D.A. criteria. Performed By: #### L 501.4020, L500.2500, L100.0100 ####[facility] [address] [place], [address] Potassium [Moles/Vol] 4.2 mmol/L Normal 3.5-5.1 [facility] Comment on above: Order Comment: 'TROP ' Serial specimen #1, #2 or #3: 1 Performed By: #### L 501.4020, L500.2500, L100.0100 ####[facility] [address] [place], [address] Sodium [Moles/Vol] 138 mmol/L Normal 136-145 [facility] Comment on above: Order Comment: 'TROP ' Serial specimen #1, #2 or #3: 1 Performed By: #### L 501.4020, L500.2500, L100.0100 ####[facility] [address] [place], [address] Urea nitrogen [Mass/Vol] 16 mg/dL Normal 7-18 [facility] Comment on above: Order Comment: 'TROP ' Serial specimen #1, #2 or #3: 1 Performed By: #### L 501.4020, L500.2500, L100.0100 ####[facility] [address] [place], [address] CBC W/Diff, Automatedon 06-3 0-2023 Absolute Lymph 1.71 X10 3/uL Normal 0.83-4.51 [facility] Comment on above: Performed By: #### L 501.4020, L500.2500, L100.0100 ####[facility] [address] [place], [address] Absolute Neut 5.5 X10 3/uL Normal 2.0-7.7 [facility] Comment on above: Performed By: #### L 501.4020, L500.2500, L100.0100 ####[facility] [address] [place], [address] Basophils/100 WBC (Bld) 0.9 % Normal 0-1 [facility] Comment on above: Performed By: #### L 501.4020, L500.2500, L100.0100 ####[facility] [address] [place], [address] Eosinophils/100 WBC (Bld) 1.0 % Normal 0-5 [facility] Comment on above: Performed By: #### L 501.4020, L500.2500, L100.0100 ####[facility] [address] [place], [address] Erythrocyte distribution width (RBC) [Ratio] 13.8 % Normal 11.6-14.6 [facility] Comment on above: Performed By: #### L 501.4020, L500.2500, L100.0100 ####[facility] [address] [place], [address] Hematocrit (Bld) [Volume fraction] 42.7 % Normal 37-47 [facility] Comment on above: Performed By: #### L 501.4020, L500.2500, L100.0100 ####[facility] [address] [place], [address] Hemoglobin (Bld) [Mass/Vol] 13.8 g/dL Normal 12.0-15.0 [facility] Comment on above: Performed By: #### L 501.4020, L500.2500, L100.0100 ####[facility] [address] [place], [address] IG% 2.200 High 0.0-0.9 [facility] Comment on above: Result Comment: IG% - Immature Granulocytes (promyelocytes, myelocytes andmetamyelocytes) > 1% indicates that a LEFT SHIFT is Present. Performed By: #### L 501.4020, L500.2500, L100.0100 ####[facility] [address] [place], [address] Lymphocytes/100 WBC (Bld) 21.2 % Normal 19-41 [facility] Comment on above: Performed By: #### L 501.4020, L500.2500, L100.0100 ####[facility] [address] [place], [address] MCH (RBC) [Entitic mass] 29.8 pg Normal 27.0-32.0 [facility] Comment on above: Performed By: #### L 501.4020, L500.2500, L100.0100 ####[facility] [address] [place], [address] MCHC (RBC) [Mass/Vol] 32.3 g/dL Normal 32-36 [facility] Comment on above: Performed By: #### L 501.4020, L500.2500, L100.0100 ####[facility] [address] [place], [address] MCV (RBC) [Entitic vol] 92.2 fL Normal 81-99 [facility] Comment on above: Performed By: #### L 501.4020, L500.2500, L100.0100 ####[facility] [address] [place], [address] Monocytes/100 WBC (Bld) 6.4 % Normal 0-10 [facility] Comment on above: Performed By: #### L 501.4020, L500.2500, L100.0100 ####[facility] [address] [place], [address] Neutrophils/100 WBC (Bld) 68.3 % Normal 47-70 [facility] Comment on above: Performed By: #### L 501.4020, L500.2500, L100.0100 ####[facility] [address] [place], [address] Nucleated RBC (Bld) [#/Vol] 0 10*3/uL Normal 0-5 [facility] Comment on above: Performed By: #### L 501.4020, L500.2500, L100.0100 ####[facility] [address] [place], [address] Platelet mean volume (Bld) [Entitic vol] 10.8 fL Normal 6.2-12.0 [facility] Comment on above: Performed By: #### L 501.4020, L500.2500, L100.0100 ####[facility] [address] [place], [address] Platelets (Bld) [#/Vol] 201 10*3/uL Normal 150-450 [facility] Comment on above: Performed By: #### L 501.4020, L500.2500, L100.0100 ####[facility] [address] [place], [address] RBC (Bld) [#/Vol] 4.63 10*6/uL Normal 4.2-5.4 [facility] Comment on above: Performed By: #### L 501.4020, L500.2500, L100.0100 ####[facility] [address] [place], [address] RDW SD 46.4 fl High 35.1-43.9 [facility] Comment on above: Performed By: #### L 501.4020, L500.2500, L100.0100 ####[facility] [address] [place], [address] WBC (Bld) [#/Vol] 8.1 10*3/uL Normal 4.4-11.0 [facility] Comment on above: Performed By: #### L 501.4020, L500.2500, L100.0100 ####[facility] [address] [place], [address] Chest PA and Lateralon 01-11 Chest PA and Lateral Normal [facility] Emergency Department Summary on 01-12-2024 Emergency Department Summary Normal [facility] L501.4020on 01-12-2024 TROPONIN-I HS 6 pg/mL Normal 3.0-54.0 [facility] Comment on above: Order Comment: 'TROP ' Serial specimen #1, #2 or #3: 1 Result Comment: [place] murphy Note: New Test Units and Gender Specific Reference Ranges. For more information see Policy Stat Procedure [place] High Sensitivity Troponin (TNIH) and attachments. Performed By: #### L 501.4020, L500.2500, L100.0100 ####[facility] [address] [place], [address] CNOVon 12-24-2023 CNOV Office Visit (AGCFM) JULESMICHELLE ([id number]) 1965 F Date Time Provider Department 12/24/23 1:40 PM MANNY EVANS [facility] During your visit today, we recorded the following information about you: Temperature Pulse Respiration Blood pressure 97.6 degrees 77/minute 16/minute 119/63 Weight Height 108.2 kg 1.753 m Manny Evans MD 12/30/2023 10:29 AM Signed [facility] / [address] [place] [address] Visit Date: December 23, 2023 Name: Michelle Jules Date of : 1965 MRN/E #: [id number] Chief Complaint: No chief complaint on file. 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 - exercise - Walking 1 mile every day Reflux symptoms Will have reflux symptoms at dinner Happens after she eats Feels like laying in throat, will regurgitate/vomit hours later 2 times each week Feels like it will sit there ALLERGIES Allergen Reactions Adhesive Tape (Natty* Itching Latex, Natural Rubb* Rash Metformin Other: See Comments Caused arrhythmia issues Seasonal Allergies Itching Simvastatin Other: See Comments myalgia Current Outpatient Medications Medication Sig spironolactone (ALDACTONE) 25 mg tablet potassium chloride ER (KLOR-CON) [address] (PROTONIX) 40 mg tablet Take 1 tablet by mouth every 12 hours. glyBURIDE 5 mg tablet Take 2 tablets by mouth daily with breakfast. insulin glargine U-300 conc (TOUJEO MAX U-300 SOLOSTAR) 300 unit/mL (3 mL) inpn Inject 90 Units subcutaneously every morning. liraglutide (VICTOZA) 0.6 mg/ 0.1 ml subcutaneous pen injector Inject 1.8 mg subcutaneously once daily. insulin needles, DISPOSABLE, (PEN NEEDLE) 31 gauge x 5/16 Use 5 needles per dose. 5 per day for her insulin. DULoxetine (CYMBALTA) 60 mg capsule Take 1 capsule by mouth two times a day. magnesium oxide (MAG-OX) 400 mg (241.3 mg magnesium) tablet Take 1 tablet by mouth two times a day. Pramipexole 0.75 mg tablet Take 1 tablet by mouth daily at bedtime. ergocalciferol 50,000 unit capsule (VITAMIN D2, DRISDOL) Take 1 capsule by mouth one time a week. flash glucose sensor (FREESTYLE LANCE 2 SENSOR) kit Use to check blood sugar before meals and at bedtime Docusate Sodium (STOOL SOFTENER) 100 mg tab Take 1 capsule by mouth twice daily as needed acetylcyst/idbxudN71 /levomefol (METAFOLBIC PLUS ORAL) Take by mouth. furosemide (LASIX) 40 mg tablet Take 1 tablet by mouth once daily. cetirizine (ZYRTEC) 10 mg tablet Take 1 tablet by mouth once daily as needed (for itching, sneezing or runny nose). blood sugar diagnostic (Fisher CoachworksTOUCH ULTRA TEST) test strip USE TO TEST BLOOD SUGAR THREE TIMES A DAY aspirin, enteric coated (ECOTRIN LOW STRENGTH) 81 mg EC tablet Take 1 tablet by mouth once daily. atorvastatin (LIPITOR) 10 mg tablet Take 1 tablet by mouth once daily. carvedilol (COREG) 25 mg tablet Take 1 tablet by mouth twice daily. insulin lispro (HUMALOG KWIKPEN) 100 unit/mL INJECT 20 UNITS SUBCUTANEOUSLY THREE TIMES A DAY BEFORE MEALS gabapentin (NEURONTIN) 300 mg capsule Take 1 capsule by mouth daily at bedtime for 270 days. Current Facility-Administere d Medications Medication Dose Route Frequency sodium chloride 0.9 % (flush) 10 mL (BD POSIFLUSH) 10 mL INTRAVENOUS DIRECTED PRN I have confirmed and edited as necessary the chief complaint, medications, past medical, family and social histories. Objective 12/24/23 1318 BP: 119/63 Pulse: 77 Resp: 16 Temp: 36.4 ?C (97.6 ?F) TempSrc: Temporal SpO2: 97% Weight: 238 lb 9.6 oz (108.2 kg) Height: 5' 9 (1.753 m) Body mass index is 35.24 kg/m?. Physical Exam Vitals and nursing note reviewed. Constitutional: Appearance: Normal appearance. HENT: Nose: Nose normal. Eyes: Conjunctiva/sclera: Conjunctivae normal. Cardiovascular: Rate and Rhythm: Normal rate and regular rhythm. Pulses: Normal pulses. Heart sounds: Normal heart sounds. Pulmonary: Effort: Pulmonary effort is normal. Breath sounds: Normal breath sounds. Musculoskeletal: Right lower leg: No edema. Left lower leg: No edema. Skin: General: Skin is warm and dry. Neurological: Mental Status: She is alert. Mental status is at baseline. Psychiatric: Mood and Affect: Mood normal. Behavior: Behavior normal. Results for orders placed or performed in visit on 12/24/23 HEMOGLOBIN A1C (POC) Result Value Ref Ran (more content not included)... Normal [facility] HEMOGLOBIN A1C (POC)on 12-23 HbA1c (Bld) [Mass fraction] 10.7 % Abnormal 4.3 - 5.6 % [facility] Comment on above: [facility] [address] [place] [address], [address] Point of care (POC) Hemoglobin A1c (HGBA1C) testing is intended to assess glucose control and provide a management tool for patients known to have diabetes and their healthcare providers. Target HGBA1C levels may depend on specific clinical circumstances. POC HGBA1C is not intended for use as a diagnostic or screening test; laboratory-based testing should be used for diagnostic purposes. The following information is supplemental and may not be applicable to specific diabetes management situations: The POC device sas bi developer provides a normal range of 4.2% to 6.5% for the HGBA1C POC test. However, the [place] [employer] guidelines indicate that patients with HGBA1C in the range of 5.7% to 6.4% are at increased risk for development of diabetes and that intervention by lifestyle modification may be beneficial. A HGBA1C level greater than or equal to 6.5% is considered diagnostic of diabetes, pending confirmatory testing. Use of HGBA1C testing to evaluate glucose control may not be appropriate for patients with hemoglobin variants or other conditions (e.g. anemia) that alter red blood cell lifespan. Interpretation and review of laboratory results Abnormal [facility] MICHELLE JULES ([id number]) 1965 F Date Time Provider Department 12/05/23 SONIA CR [facility] During your visit today, we recorded the following information about you: Cristiane Brooks 12/05/2023 2:33 PM Signed ----- Message from Tayler Chin sent at 12/05/2023 2:09 PM EDT ----- Regardin[facility] [place]/FAMP AG ACC// Homar Vasques MD / [Callback-reschedule pharmacist appointment] Subject Line Format: Medicine / Homar Vasques MD / [Callback-reschedule pharmacist appointment] Select Department Name For Pool Routing Assistance: FAMP AG ACC CFM => AG FAMP ACC CFM APPT CTR TRIAGE POOL [[id number]] ======= Patient: Michelle Jules Date of : 1965 Primary Care Provider: Homar Vasques MD The reason I am contacting the office is: Call Back - Patient is requesting a call back from PCP Office about rescheduling appointment for 12/05/23 at 2:00pm with the pharmacist. Person calling if other than patient: N/A Best contact number: [phone] Thank you, Tayler Chin December 05, 2023 2:09 PM Cristiane Brooks 12/05/2023 2:36 PM Signed Patient said she missed her appointment bc she came and got lost. Attempted to reach out to pt to reschedule and pt phone had a really bad connection. Tried calling her back and it went to a busy tone. Allergies As of Date: 12/05/2023 Noted Allergy Reaction ADHESIVE TAPE (ROSINS) 03/27/2006 9 - Itching LATEX, NATURAL RUBBER 09/09/2018 2 - Rash METFORMIN 07/22/2018 14 - Other: See Comments Comments: Caused arrhythmia issues SEASONAL ALLERGIES 03/01/2023 9 - Itching SIMVASTATIN 11/04/2012 14 - Other: See Comments Comments: myalgia Date Reviewed: 10/30/2023 Reviewed by: Georgette Ness LPN - Fully Assessed Reason for Visit: Appointment [186] Prescriptions as of 12/05/2023 - insulin lispro (HUMALOG KWIKPEN) 100 unit/mL INJECT 18 UNITS SUBCUTANEOUSLY THREE TIMES A DAY BEFORE MEALS - pantoprazole DR (PROTONIX) 40 mg tablet Take 1 tablet by mouth every 12 hours. - glyBURIDE 5 mg tablet Take 2 tablets by mouth daily with breakfast. - insulin glargine U-300 conc (TOUJEO MAX U-300 SOLOSTAR) 300 unit/mL (3 mL) inpn Inject 90 Units subcutaneously every morning. - liraglutide (VICTOZA) 0.6 mg/ 0.1 ml subcutaneous pen injector Inject 1.8 mg subcutaneously once daily. - insulin needles, DISPOSABLE, (PEN NEEDLE) 31 gauge x 5/16 Use 5 needles per dose. 5 per day for her insulin. - DULoxetine (CYMBALTA) 60 mg capsule Take 1 capsule by mouth two times a day. - magnesium oxide (MAG-OX) 400 mg (241.3 mg magnesium) tablet Take 1 tablet by mouth two times a day. - Pramipexole 0.75 mg tablet Take 1 tablet by mouth daily at bedtime. - ergocalciferol 50,000 unit capsule (VITAMIN D2, DRISDOL) Take 1 capsule by mouth one time a week. - gabapentin (NEURONTIN) 300 mg capsule Take 1 capsule by mouth daily at bedtime for 270 days. - flash glucose sensor (FREESTYLE LANCE 2 SENSOR) kit Use to check blood sugar before meals and at bedtime - Docusate Sodium (STOOL SOFTENER) 100 mg tab Take 1 capsule by mouth twice daily as needed - acetylcyst/rigbbkN34 /levomefol (METAFOLBIC PLUS ORAL) Take by mouth. - furosemide (LASIX) 40 mg tablet Take 1 tablet by mouth once daily. - cetirizine (ZYRTEC) 10 mg tablet Take 1 tablet by mouth once daily as needed (for itching, sneezing or runny nose). - losartan (COZAAR) 25 mg tablet (Discontinued) Take 1 tablet by mouth once daily. - blood sugar diagnostic ([place] Range ULTRA TEST) test strip USE TO TEST BLOOD SUGAR THREE TIMES A DAY - aspirin, enteric coated (ECOTRIN LOW STRENGTH) 81 mg EC tablet Take 1 tablet by mouth once daily. - atorvastatin (LIPITOR) 10 mg tablet Take 1 tablet by mouth once daily. - carvedilol (COREG) 25 mg tablet Take 1 tablet by mouth twice daily. 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.* Vitamin D deficiency [E55.9] Family history of colon cancer [Z80.0] Cardiomyopathy, nonischemic (HCC) [I42.8] 04/14/2013 Abnormality of gait [R26.9] 05/04/2014 Ganglion cyst of right foot [M67.471] 09/09/2015 Biventricular ICD (implantable cardioverter-def* Uncontrolled type 2 diabetes mellitus with diab*12/21/2015 Restless leg syndrome [G25.81] 02/09/2016 Peroneal tendinitis [M76.70] 07/12/2016 Pain in joint, ankle and foot [M25.579] 07/12/2016 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 Normal [facility] CNPN Telephone ([facility]) MICHELLE JULES ([id number]) 1965 F Date Time Provider Department 12/05/23 SONIA CR [facility] During your visit today, we recorded the following information about you[facility] 2:20 PM Signed Patient no showed appt with pharmd today. Attempted telephone outreach - unable to reach. A1c due at this time; order placed. Please have patient obtain and reschedule with pharmd thanks! Hemoglobin A1C (POCT) Date Value Ref Range Status 08/30/2023 13.7 (A) 4.3 - 5.6 % Final Comment: Location:[facility], [address] [place], [place], [address] Point of care (POC) Hemoglobin A1c (HGBA1C) testing is intended to assess glucose control and provide a management tool for patients known to have diabetes and their healthcare providers. Target HGBA1C levels may depend on specific clinical circumstances. POC HGBA1C is not intended for use as a diagnostic or screening test; laboratory-based testing should be used for diagnostic purposes. The following information is supplemental and may not be applicable to specific diabetes management situations: The POC device sas bi developer provides a normal range of 4.2% to 6.5% for the HGBA1C POC test. However, the [place] [employer] guidelines indicate that patients with HGBA1C in the range of 5.7% to 6.4% are at increased risk for development of diabetes and that intervention by lifestyle modification may be beneficial. A HGBA1C level greater than or equal to 6.5% is considered diagnostic of diabetes, pending confirmatory testing. Use of HGBA1C testing to evaluate glucose control may not be appropriate for patients with hemoglobin variants or other conditions (e.g. anemia) that alter red blood cell lifespan. Allergies As of Date: 12/05/2023 Noted Allergy Reaction ADHESIVE TAPE (ROSINS) 03/27/2006 9 - Itching LATEX, NATURAL RUBBER 09/09/2018 2 - Rash METFORMIN 07/22/2018 14 - Other: See Comments Comments: Caused arrhythmia issues SEASONAL ALLERGIES 03/01/2023 9 - Itching SIMVASTATIN 11/04/2012 14 - Other: See Comments Comments: myalgia Date Reviewed: 10/30/2023 Reviewed by: Georgette Ness LPN - Fully Assessed Reason for Visit: No Show [1558] Primary Visit Diagnosis:Type 2 diabetes mellitus with diabetic neuropathy, with long-term current use of insulin (HCC) [E11.40, Z79.4] Order(s):HEMOGLOBIN A1C [SIMFZ2H] Order #: [id number] FUTURE Prescriptions as of 12/05/2023 - insulin lispro (HUMALOG KWIKPEN) 100 unit/mL INJECT 18 UNITS SUBCUTANEOUSLY THREE TIMES A DAY BEFORE MEALS - pantoprazole DR (PROTONIX) 40 mg tablet Take 1 tablet by mouth every 12 hours. - glyBURIDE 5 mg tablet Take 2 tablets by mouth daily with breakfast. - insulin glargine U-300 conc (TOUJEO MAX U-300 SOLOSTAR) 300 unit/mL (3 mL) inpn Inject 90 Units subcutaneously every morning. - liraglutide (VICTOZA) 0.6 mg/ 0.1 ml subcutaneous pen injector Inject 1.8 mg subcutaneously once daily. - insulin needles, DISPOSABLE, (PEN NEEDLE) 31 gauge x 5/16 Use 5 needles per dose. 5 per day for her insulin. - DULoxetine (CYMBALTA) 60 mg capsule Take 1 capsule by mouth two times a day. - magnesium oxide (MAG-OX) 400 mg (241.3 mg magnesium) tablet Take 1 tablet by mouth two times a day. - Pramipexole 0.75 mg tablet Take 1 tablet by mouth daily at bedtime. - ergocalciferol 50,000 unit capsule (VITAMIN D2, DRISDOL) Take 1 capsule by mouth one time a week. - gabapentin (NEURONTIN) 300 mg capsule Take 1 capsule by mouth daily at bedtime for 270 days. - flash glucose sensor (FREESTYLE LANCE 2 SENSOR) kit Use to check blood sugar before meals and at bedtime - Docusate Sodium (STOOL SOFTENER) 100 mg tab Take 1 capsule by mouth twice daily as needed - acetylcyst/yymkwhM46 /levomefol (METAFOLBIC PLUS ORAL) Take by mouth. - furosemide (LASIX) 40 mg tablet Take 1 tablet by mouth once daily. - cetirizine (ZYRTEC) 10 mg tablet Take 1 tablet by mouth once daily as needed (for itching, sneezing or runny nose). - losartan (COZAAR) 25 mg tablet (Discontinued) Take 1 tablet by mouth once daily. - blood sugar diagnostic (ICVRxUCH ULTRA TEST) test strip USE TO TEST BLOOD SUGAR THREE TIMES A DAY - aspirin, enteric coated (ECOTRIN LOW STRENGTH) 81 mg EC tablet Take 1 tablet by mouth once daily. - atorvastatin (LIPITOR) 10 mg tablet Take 1 tablet by mouth once daily. - carvedilol (COREG) 25 mg tablet Take 1 tablet by mouth twice daily. 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 Normal [facility] ([facility]) MICHELLE JULES ([id number]) 1965 F Date Time Provider Department 11/27/23 WILLIAMS RUBIN [facility] During your visit today, we recorded the following information about you: Eileen Be 11/27/2023 3:05 PM Signed Please review and complete. Will be placed in your in box.Thank you Specialty called [phone] Graf to sign form. Allergies As of Date: 11/27/2023 Noted Allergy Reaction ADHESIVE TAPE (ROSINS) 03/27/2006 9 - Itching LATEX, NATURAL RUBBER 09/09/2018 2 - Rash METFORMIN 07/22/2018 14 - Other: See Comments Comments: Caused arrhythmia issues SEASONAL ALLERGIES 03/01/2023 9 - Itching SIMVASTATIN 11/04/2012 14 - Other: See Comments Comments: myalgia Date Reviewed: 10/30/2023 Reviewed by: Georgette Ness LPN - Fully Assessed Reason for Visit: Forms [913] Cmt: Specialty medical- glucose monitor Prescriptions as of 11/27/2023 - pantoprazole DR (PROTONIX) 40 mg tablet Take 1 tablet by mouth every 12 hours. - glyBURIDE 5 mg tablet Take 2 tablets by mouth daily with breakfast. - insulin lispro (HUMALOG KWIKPEN) 100 unit/mL INJECT 15 UNITS SUBCUTANEOUSLY THREE TIMES A DAY BEFORE MEALS - insulin glargine U-300 conc (TOUJEO MAX U-300 SOLOSTAR) 300 unit/mL (3 mL) inpn Inject 90 Units subcutaneously every morning. - liraglutide (VICTOZA) 0.6 mg/ 0.1 ml subcutaneous pen injector Inject 1.8 mg subcutaneously once daily. - insulin needles, DISPOSABLE, (PEN NEEDLE) 31 gauge x 11/27 Use 5 needles per dose. 5 per day for her insulin. - DULoxetine (CYMBALTA) 60 mg capsule Take 1 capsule by mouth two times a day. - magnesium oxide (MAG-OX) 400 mg (241.3 mg magnesium) tablet Take 1 tablet by mouth two times a day. - Pramipexole 0.75 mg tablet Take 1 tablet by mouth daily at bedtime. - ergocalciferol 50,000 unit capsule (VITAMIN D2, DRISDOL) Take 1 capsule by mouth one time a week. - gabapentin (NEURONTIN) 300 mg capsule Take 1 capsule by mouth daily at bedtime for 270 days. - flash glucose sensor (FREESTYLE LANCE 2 SENSOR) kit Use to check blood sugar before meals and at bedtime - Docusate Sodium (STOOL SOFTENER) 100 mg tab Take 1 capsule by mouth twice daily as needed - acetylcyst/eooxmnN81 /levomefol (METAFOLBIC PLUS ORAL) Take by mouth. - furosemide (LASIX) 40 mg tablet Take 1 tablet by mouth once daily. - cetirizine (ZYRTEC) 10 mg tablet Take 1 tablet by mouth once daily as needed (for itching, sneezing or runny nose). - losartan (COZAAR) 25 mg tablet (Discontinued) Take 1 tablet by mouth once daily. - blood sugar diagnostic (ICVRxUCH ULTRA TEST) test strip USE TO TEST BLOOD SUGAR THREE TIMES A DAY - aspirin, enteric coated (ECOTRIN LOW STRENGTH) 81 mg EC tablet Take 1 tablet by mouth once daily. - atorvastatin (LIPITOR) 10 mg tablet Take 1 tablet by mouth once daily. - carvedilol (COREG) 25 mg tablet Take 1 tablet by mouth twice daily. 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.* Vitamin D deficiency [E55.9] Family history of colon cancer [Z80.0] Cardiomyopathy, nonischemic (HCC) [I42.8] 04/14/2013 Abnormality of gait [R26.9] 05/04/2014 Ganglion cyst of right foot [M67.471] 09/09/2015 Biventricular ICD (implantable cardioverter-def* Uncontrolled type 2 diabetes mellitus with diab*12/21/2015 Restless leg syndrome [G25.81] 02/09/2016 Peroneal tendinitis [M76.70] 07/12/2016 Pain in joint, ankle and foot [M25.579] 07/12/2016 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 MICHELLE JULES ([id number]) 1965 F Date Time Provider Department 11/15/23 VERONICA CHI AGGASTACC During your visit today, we recorded the following information about you: Veronica Chi, RN 11/15/2023 11:26 AM [facility] contacted patient regarding referral for screening colonoscopy. Patient states that she has had her previous scopes done at [facility], and is going to speak with her physician about going closer to home. Patient declined to schedule with us at this time. Allergies As of Date: 11/15/2023 Noted Allergy Reaction ADHESIVE TAPE (ROSINS) 03/27/2006 9 - Itching LATEX, NATURAL RUBBER 09/09/2018 2 - Rash METFORMIN 07/22/2018 14 - Other: See Comments Comments: Caused arrhythmia issues SEASONAL ALLERGIES 03/01/2023 9 - Itching SIMVASTATIN 11/04/2012 14 - Other: See Comments Comments: myalgia Date Reviewed: 10/30/2023 Reviewed by: Georgette Ness LPN - Fully Assessed Reason for Visit: Colonoscopy Referral [Other] Prescriptions as of 11/15/2023 - insulin lispro (HUMALOG KWIKPEN) 100 unit/mL INJECT 15 UNITS SUBCUTANEOUSLY THREE TIMES A DAY BEFORE MEALS - insulin glargine U-300 conc (TOUJEO MAX U-300 SOLOSTAR) 300 unit/mL (3 mL) inpn Inject 90 Units subcutaneously every morning. - liraglutide (VICTOZA) 0.6 mg/ 0.1 ml subcutaneous pen injector Inject 1.8 mg subcutaneously once daily. - pantoprazole DR (PROTONIX) 40 mg tablet Take 1 tablet by mouth every 12 hours. - insulin needles, DISPOSABLE, (PEN NEEDLE) 31 gauge x 5/16 Use 5 needles per dose. 5 per day for her insulin. - glyBURIDE 5 mg tablet Take 2 tablets by mouth daily with breakfast. - DULoxetine (CYMBALTA) 60 mg capsule Take 1 capsule by mouth two times a day. - magnesium oxide (MAG-OX) 400 mg (241.3 mg magnesium) tablet Take 1 tablet by mouth two times a day. - Pramipexole 0.75 mg tablet Take 1 tablet by mouth daily at bedtime. - ergocalciferol 50,000 unit capsule (VITAMIN D2, DRISDOL) Take 1 capsule by mouth one time a week. - gabapentin (NEURONTIN) 300 mg capsule Take 1 capsule by mouth daily at bedtime for 270 days. - flash glucose sensor (FREESTYLE LANCE 2 SENSOR) kit Use to check blood sugar before meals and at bedtime - Docusate Sodium (STOOL SOFTENER) 100 mg tab Take 1 capsule by mouth twice daily as needed - acetylcyst/ovmvqcS21 /levomefol (METAFOLBIC PLUS ORAL) Take by mouth. - furosemide (LASIX) 40 mg tablet Take 1 tablet by mouth once daily. - cetirizine (ZYRTEC) 10 mg tablet Take 1 tablet by mouth once daily as needed (for itching, sneezing or runny nose). - losartan (COZAAR) 25 mg tablet (Discontinued) Take 1 tablet by mouth once daily. - blood sugar diagnostic (ICVRxUCH ULTRA TEST) test strip USE TO TEST BLOOD SUGAR THREE TIMES A DAY - aspirin, enteric coated (ECOTRIN LOW STRENGTH) 81 mg EC tablet Take 1 tablet by mouth once daily. - atorvastatin (LIPITOR) 10 mg tablet Take 1 tablet by mouth once daily. - carvedilol (COREG) 25 mg tablet Take 1 tablet by mouth twice daily. 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.* Vitamin D deficiency [E55.9] Family history of colon cancer [Z80.0] Cardiomyopathy, nonischemic (HCC) [I42.8] 04/14/2013 Abnormality of gait [R26.9] 05/04/2014 Ganglion cyst of right foot [M67.471] 09/09/2015 Biventricular ICD (implantable cardioverter-def* Uncontrolled type 2 diabetes mellitus with diab*12/21/2015 Restless leg syndrome [G25.81] 02/09/2016 Peroneal tendinitis [M76.70] 07/12/2016 Pain in joint, ankle and foot [M25.579] 07/12/2016 Nonallergic rhinitis [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 CNOVon 11-14-2023 CNOV Office Visit (AGCFM) MICHELLE JULES ([id number]) 1965 F Date Time Provider Department 11/14/23 1:20 PM [facility] During your visit today, we recorded the following information about you: Temperature Pulse Blood pressure Weight 97.3 degrees 84/minute 119/71 108.4 kg Height 1.753 m Sonia Cr bhupendra 11/14/2023 2:14 PM Signed REASON FOR CONSULT: diabetes Referring Provider: Dr. Thornton Date of Consult: 08/30/2023 Date of last appt with FM provider: 08/30/2023 Michelle Jules is a 58 year old female who is presenting for follow up visit in person. Patient consents to pharmacy collaborative practice agreement. HPI: Using CGM Since changing sensor to stomach from arm, no issues with falling off Findings below No episodes <70; states can feel when sugar starts to drop CGM findings: Average glucose, 14 days 12 am - 6 am: 215 (prior: 196) 6 am - 12 pm: 276 (prior: 197) 12 pm - 6 pm: 372 (prior: 363) 6 pm - 12 am: 327 (prior: 312) Time in range, 14 days: 13% (prior: 18%) High: 87% (prior: 82%) Low: 0% Number of hypoglycemic events in last 30 days: 0 Sensor usage: 82% Reports ongoing stress with mom, children Regimen as below Has missed ~1 doses of toujeo and humalog (breakfast dose) this past week States tried putting an alarm on the phone did not help Has not missed any humalog lunch doses (prior 2-3 missed doses per week) Victoza also in the morning, also likely missing ~1 dose Denies N/V/D/C Current Diabetes Medications Toujeo - 90 units daily Humalog 11 units TID Victoza - 1.8 mg daily Glyburide - 5 mg BID On BLAIRE/ARB: No, ACR <30 On Statin: Yes On aspirin: Yes Prior intolerance to metformin Denies food insecurity Ex- and his mother do shopping She does the cooking BEDS7: negative Glass of pop x1 per day; no change since last appt Tea is my weakness - not sweetened Down from 2 to 1 cup of tea per day Meals - inconsistent Breakfast - usually skips; trying to have something like toast Lunch - snacking, cheese; sandwich Dinner - variable 24 hour recall: peanut butter toast; snacking on banana; dinner - ham and beans and corn bread (1 plate) Limited activity Barriers: weather, caring for family members Previously spoke with dietitian Not interested at this time Past medical, family and social history reviewed and updated. REVIEW OF SYSTEMS Review of Systems Constitutional: Negative for chills and fever. VITALS: BP 119/71 Pulse 84 Temp 36.3 ?C (97.3 ?F) Ht 5' 9 (1.753 m) Wt 239 lb (108.4 kg) BMI 35.29 kg/m? EXAM: Last 3 Encounter BP Readings: Date: BP: 09/12/2023 115/70 08/30/2023 118/77 05/20/2023 127/76 Wt: 235 lb 12.8 oz (107 kg) BMI: 34.82 kg/(m2) LABS: Reviewed Lab Results Component Value Date HBA1C 13.7 08/30/2023 HBA1C 12.5 05/20/2023 HBA1C 14.7 01/22/2023 HBA1C 6.8 02/23/2019 HBA1C 7.9 11/12/2018 HBA1C 9.4 07/21/2018 Lab Results Component Value Date CHOL 177 01/25/2023 CHOL 147 07/21/2018 LDL 99 01/25/2023 LDL 63 07/21/2018 HDL 38 01/25/2023 HDL 38 07/21/2018 TG 201 01/25/2023 TG 230 07/21/2018 Albumin/Creat Ratio (mg/g) Date Value 01/25/2023 7 ASSESSMENT/PLAN 1. Type 2 diabetes mellitus with diabetic neuropathy, with long-term current use of insulin (HCC) - ICD9: 250.60, 357.2, V58.67, ICD10: E11.40, Z79.4 (primary diagnosis) - Uncontrolled; elevated SMBG consistent with A1c - INCREASE INSULIN LISPRO (U-100) 100 UNIT/ML SUBCUTANEOUS PEN - 15/15/15/0 - encouraged medication adherence - CONTINUE INSULIN GLARGINE (U-300) CONC. 300 UNIT/ML (3 ML) SUBCUTANEOUS PEN - CONTINUE LIRAGLUTIDE 0.6 MG/0.1 ML (18 MG/3 ML) SUBCUTANEOUS PEN INJECTOR - minimize carb-based meal portions - Blood glucose monitoring via CGM - Discussed diabetic education issues of diabetes complications and monitoring required and hypoglycemic/hypergl ycemic symptoms - minimize pop/tea; substitutions provided 2. Uses self-applied continuous glucose monitoring device - ICD9: V49.89, ICD10: Z97.8 Encouraged ongoing use; demonstrated how to use via teach back 3. Preventative health care - ICD9: V70.0, ICD10: Z00.00 - Counseled on healthy diet and regular exercise - schedule mammogram, colonoscopy 4. Diabetes education, encounter for - ICD9: V65.49, ICD10: Z71.89 Not interested in dietitian appt Patient verbalized understanding of instructions. Thank you for allowing pharmacy to participate in this patient's care Sonia Cr [facility] The majority of the pharmacy visit (> 50%) was spent counseling and/or coordinating care for the patient. I spent a total of 25 minutes on the date of the service which included preparing to see the patient, [id number]-qt-[id number] patient care, completing clinical documentation, and counseling and educating the patient/family/careg Sonia Dumont [facility] (more content not included)... [facility] MICHELLE JULES ([id number]) 1965 F Date Time Provider Department 11/05/23 [facility] During your visit today, we recorded the following information about you: Eileen Be 11/05/2023 2:22 PM Signed Please review and complete. Will be placed in your temp file.Thank you Williams Rubin MD 11/07/2023 3:47 PM Signed Completed and placed in [facility] Room. Williams Rubin MD Allergies As of Date: 11/05/2023 Noted Allergy Reaction ADHESIVE TAPE (ROSINS) 03/27/2006 9 - Itching LATEX, NATURAL RUBBER 09/09/2018 2 - Rash METFORMIN 07/22/2018 14 - Other: See Comments Comments: Caused arrhythmia issues SEASONAL ALLERGIES 03/01/2023 9 - Itching SIMVASTATIN 11/04/2012 14 - Other: See Comments Comments: myalgia Date Reviewed: 10/30/2023 Reviewed by: Georgette Ness LPN - Fully Assessed Reason for Visit: Forms [913] Cmt: Specialty- glucose monitor Prescriptions as of 11/07/2023 - insulin lispro (HUMALOG KWIKPEN) 100 unit/mL INJECT 11 UNITS SUBCUTANEOUSLY THREE TIMES A DAY BEFORE MEALS - insulin glargine U-300 conc (TOUJEO MAX U-300 SOLOSTAR) 300 unit/mL (3 mL) inpn Inject 90 Units subcutaneously every morning. - liraglutide (VICTOZA) 0.6 mg/ 0.1 ml subcutaneous pen injector Inject 1.8 mg subcutaneously once daily. - pantoprazole DR (PROTONIX) 40 mg tablet Take 1 tablet by mouth every 12 hours. - insulin needles, DISPOSABLE, (PEN NEEDLE) 31 gauge x 5/16 Use 5 needles per dose. 5 per day for her insulin. - glyBURIDE 5 mg tablet Take 2 tablets by mouth daily with breakfast. - DULoxetine (CYMBALTA) 60 mg capsule Take 1 capsule by mouth two times a day. - magnesium oxide (MAG-OX) 400 mg (241.3 mg magnesium) tablet Take 1 tablet by mouth two times a day. - Pramipexole 0.75 mg tablet Take 1 tablet by mouth daily at bedtime. - ergocalciferol 50,000 unit capsule (VITAMIN D2, DRISDOL) Take 1 capsule by mouth one time a week. - gabapentin (NEURONTIN) 300 mg capsule Take 1 capsule by mouth daily at bedtime for 270 days. - flash glucose sensor (FREESTYLE LANCE 2 SENSOR) kit Use to check blood sugar before meals and at bedtime - Docusate Sodium (STOOL SOFTENER) 100 mg tab Take 1 capsule by mouth twice daily as needed - acetylcyst/jkvmcyM83 /levomefol (METAFOLBIC PLUS ORAL) Take by mouth. - furosemide (LASIX) 40 mg tablet Take 1 tablet by mouth once daily. - cetirizine (ZYRTEC) 10 mg tablet Take 1 tablet by mouth once daily as needed (for itching, sneezing or runny nose). - losartan (COZAAR) 25 mg tablet (Discontinued) Take 1 tablet by mouth once daily. - blood sugar diagnostic ([place] ULTRA TEST) test strip USE TO TEST BLOOD SUGAR THREE TIMES A DAY - aspirin, enteric coated (ECOTRIN LOW STRENGTH) 81 mg EC tablet Take 1 tablet by mouth once daily. - atorvastatin (LIPITOR) 10 mg tablet Take 1 tablet by mouth once daily. - carvedilol (COREG) 25 mg tablet Take 1 tablet by mouth twice daily. 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.* Vitamin D deficiency [E55.9] Family history of colon cancer [Z80.0] Cardiomyopathy, nonischemic (HCC) [I42.8] 04/14/2013 Abnormality of gait [R26.9] 05/04/2014 Ganglion cyst of right foot [M67.471] 09/09/2015 Biventricular ICD (implantable cardioverter-def* Uncontrolled type 2 diabetes mellitus with diab*12/21/2015 Restless leg syndrome [G25.81] 02/09/2016 Peroneal tendinitis [M76.70] 07/12/2016 Pain in joint, ankle and foot [M25.579] 07/12/2016 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 10[facility]20[facility] MICHELLE JULES ([id number]) 1965 F Date Time Provider Department 10/31/23 HOMAR VASQUES [facility] During your visit today, we recorded the following information about you: Cristiane Brooks 10/31/2023 8:24 AM Signed Referral to GASTROENTEROLOGY entered into the [facility] portal on 10/31/2023. Confirmation number [id number]. Allergies As of Date: 10/31/2023 Noted Allergy Reaction ADHESIVE TAPE (ROSINS) 03/27/2006 9 - Itching LATEX, NATURAL RUBBER 09/09/2018 2 - Rash METFORMIN 07/22/2018 14 - Other: See Comments Comments: Caused arrhythmia issues SEASONAL ALLERGIES 03/01/2023 9 - Itching SIMVASTATIN 11/04/2012 14 - Other: See Comments Comments: myalgia Date Reviewed: 10/30/2023 Reviewed by: Georgette Ness LPN - Fully Assessed Reason for Visit: Initial Consult [665] Prescriptions as of 10/31/2023 - insulin lispro (HUMALOG KWIKPEN) 100 unit/mL INJECT 11 UNITS SUBCUTANEOUSLY THREE TIMES A DAY BEFORE MEALS - insulin glargine U-300 conc (TOUJEO MAX U-300 SOLOSTAR) 300 unit/mL (3 mL) inpn Inject 90 Units subcutaneously every morning. - liraglutide (VICTOZA) 0.6 mg/ 0.1 ml subcutaneous pen injector Inject 1.8 mg subcutaneously once daily. - pantoprazole DR (PROTONIX) 40 mg tablet Take 1 tablet by mouth every 12 hours. - insulin needles, DISPOSABLE, (PEN NEEDLE) 31 gauge x 11/27 Use 5 needles per dose. 5 per day for her insulin. - glyBURIDE 5 mg tablet Take 2 tablets by mouth daily with breakfast. - DULoxetine (CYMBALTA) 60 mg capsule Take 1 capsule by mouth two times a day. - magnesium oxide (MAG-OX) 400 mg (241.3 mg magnesium) tablet Take 1 tablet by mouth two times a day. - Pramipexole 0.75 mg tablet Take 1 tablet by mouth daily at bedtime. - ergocalciferol 50,000 unit capsule (VITAMIN D2, DRISDOL) Take 1 capsule by mouth one time a week. - gabapentin (NEURONTIN) 300 mg capsule Take 1 capsule by mouth daily at bedtime for 270 days. - flash glucose sensor (FREESTYLE LANCE 2 SENSOR) kit Use to check blood sugar before meals and at bedtime - Docusate Sodium (STOOL SOFTENER) 100 mg tab Take 1 capsule by mouth twice daily as needed - acetylcyst/mclulbS21 /levomefol (METAFOLBIC PLUS ORAL) Take by mouth. - furosemide (LASIX) 40 mg tablet Take 1 tablet by mouth once daily. - cetirizine (ZYRTEC) 10 mg tablet Take 1 tablet by mouth once daily as needed (for itching, sneezing or runny nose). - losartan (COZAAR) 25 mg tablet (Discontinued) Take 1 tablet by mouth once daily. - blood sugar diagnostic ([employer] CoachworksTOUCH ULTRA TEST) test strip USE TO TEST BLOOD SUGAR THREE TIMES A DAY - aspirin, enteric coated (ECOTRIN LOW STRENGTH) 81 mg EC tablet Take 1 tablet by mouth once daily. - atorvastatin (LIPITOR) 10 mg tablet Take 1 tablet by mouth once daily. - carvedilol (COREG) 25 mg tablet Take 1 tablet by mouth twice daily. 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.* Vitamin D deficiency [E55.9] Family history of colon cancer [Z80.0] Cardiomyopathy, nonischemic (HCC) [I42.8] 04/14/2013 Abnormality of gait [R26.9] 05/04/2014 Ganglion cyst of right foot [M67.471] 09/09/2015 Biventricular ICD (implantable cardioverter-def* Uncontrolled type 2 diabetes mellitus with diab*12/21/2015 Restless leg syndrome [G25.81] 02/09/2016 Peroneal tendinitis [M76.70] 07/12/2016 Pain in joint, ankle and foot [M25.579] 07/12/2016 Nonallergic rhinitis [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 CNOVon 10-30-2023 [facility] MICHELLE JULES ([id number]) 1965 F Date Time Provider Department 10/30/23 1:40 PM [facility] During your visit today, we recorded the following information about you: Temperature Blood pressure Weight Height 97.4 degrees 130/83 107.5 kg 1.753 m Sonia Cr [facility] 10/30/2023 3:29 PM Signed REASON FOR CONSULT: diabetes Referring Provider: Dr. Thornton Date of Consult: 08/30/2023 Michelle Jules is a 58 year old female who is presenting for follow up visit in person. Patient consents to pharmacy collaborative practice agreement. HPI: Placed CGM, has been wearing ~1 month No issues with use CGM findings: Average glucose, 14 days 12 am - 6 am: 196 6 am - 12 pm: 197 12 pm - 6 pm: 363 6 pm - 12 am: 312 Time in range, 14 days: 18% High: 82% Low: 0% Number of hypoglycemic events in last 30 days: 0 Sensor usage: 64% Reports ongoing stress with mom being in the hospital, son had an injury Regimen as below Confirmed changed lantus to toujeo; likes change States frequently misses humalog lunch dose; ongoing missed doses At least 2-3 missed doses per week Reports does not miss lantus or pills Historically had been out of victoza for 1 month Reports was able to get; no issues Has been back on for ~1 month Denies N/V/D/C Current Diabetes Medications Toujeo - 90 units daily Humalog 8 units TID Victoza - 1.8 mg; see above Glyburide - 5 mg BID On BLAIRE/ARB: No, ACR <30 On Statin: Yes On aspirin: Yes Prior intolerance to metformin Payor: [employer] MEDICAID / Plan: [facility] MEDICAID [facility] / Product Type: Medicaid / 24 hour recall: Breakfast - cereal Lunch - pasta Dinner - doesn't remember Ex- and his mother do shopping She does the cooking BEDS7: negative Glass of pop x1 per day; no change since last appt Tea is my weakness - not sweetened States now only doing 2 cups per day Meals - inconsistent Breakfast - usually skips; trying to have something like toast Lunch - snacking, cheese; sandwich Dinner - variable Limited activity Barriers: weather, caring for family members Previously spoke with dietitian Not interested at this time Past medical, family and social history reviewed and updated. REVIEW OF SYSTEMS Review of Systems Constitutional: Negative for chills and fever. PAST MEDICAL HISTORY Diagnosis Date Cardiomyopathy, nonischemic (HCC) 04/2013 Degenerative joint disease involving multiple joints shoulders, right knee Essential hypertension, benign Family history of colon cancer 5y screening cycle GERD (gastroesophageal reflux disease) Restless leg syndrome 02/09/2016 Snoring Vitamin D deficiency ALLERGIES Allergen Reactions Adhesive Tape (Natty* Itching Latex, Natural Rubb* Rash Metformin Other: See Comments Caused arrhythmia issues Seasonal Allergies Itching Simvastatin Other: See Comments myalgia VITALS: BP 130/83 Temp 36.3 ?C (97.4 ?F) Ht 5' 9 (1.753 m) Wt 237 lb (107.5 kg) BMI 35.00 kg/m? EXAM: Last 3 Encounter BP Readings: Date: BP: 09/12/2023 115/70 08/30/2023 118/77 05/20/2023 127/76 Wt: 235 lb 12.8 oz (107 kg) BMI: 34.82 kg/(m2) LABS: Reviewed Lab Results Component Value Date HBA1C 13.7 08/30/2023 HBA1C 12.5 05/20/2023 HBA1C 14.7 01/22/2023 HBA1C 6.8 02/23/2019 HBA1C 7.9 11/12/2018 HBA1C 9.4 07/21/2018 CMP: Glucose 304 01/25/2023 BUN 13 01/25/2023 Creatinine 0.64 01/25/2023 Sodium 137 01/25/2023 Potassium 4.2 01/25/2023 Albumin 4.0 01/25/2023 Calcium 9.4 01/25/2023 AST 16 01/25/2023 ALT 23 01/25/2023 Lab Results Component Value Date CHOL 177 01/25/2023 CHOL 147 07/21/2018 LDL 99 01/25/2023 LDL 63 07/21/2018 HDL 38 01/25/2023 HDL 38 07/21/2018 TG 201 01/25/2023 TG 230 07/21/2018 Albumin/Creat Ratio (mg/g) Date Value 01/25/2023 7 Creatinine clearance cannot be calculated (Patient's most recent lab result is older than the maximum 180 days allowed.) ASSESSMENT/PLAN 1. Type 2 diabetes mellitus with diabetic neuropathy, with long-term current use of insulin ([facility]) - ICD9: 250.60, 357.2, V58.67, ICD10: E11.40, Z79.4 (primary diagnosis) - Uncontrolled; good lifestyle changes at this time. Tolerating change to toujeo. - INCREASE INSULIN LISPRO (U-100) 100 UNIT/ML SUBCUTANEOUS PEN - 05/25/11 - encouraged medication adherence - CONTINUE INSULIN GLARGINE (U-300) CONC. 300 UNIT/ML (3 ML) SUBCUTANEOUS PEN - CONTINUE LIRAGLUTIDE 0.6 MG/0.1 ML (18 MG/3 ML) SUBCUTANEOUS PEN INJECTOR - minimize carb-based meal portions - Blood glucose monitoring via CGM - Discussed diabetic education issues of diabetes complications and monitoring required and hypoglycemic/hypergl ycemic symptoms - minimize pop/tea 2. Uses self-applied continuous glucose monitoring device - ICD9: V49.89, ICD10: Z97.8 Encouraged ongoing us (more content not included)... Normal [facility] ICD REMOTE CHECKon 4 AV Delay Adaptive Paced Minimum (ms) 150 ms [facility] AV Delay Adaptive Sensed Minimum (ms) 130 ms [facility] AV Delay Paced (ms) 100 ms [facility] AV Delay Sensed (ms) 85 ms [facility] Carlos Alberto LV Pacing Amplitude (volts) 2.5 V [facility] Carlos Alberto LV Pacing Pulse Width (ms) 1.0 ms [facility] carlos alberto LV Sensing Amplitude (mvolts) 1.0 mV [facility] Carlos Alberto RA Pacing Amplitude (volts) 2.0 V [facility] Carlos Alberto RA Pacing Polarity BI [facility] Carlos Alberto RA Pacing Pulse Width (ms) 0.4 ms [facility] Carlos Alberto RA Sensing Amplitude (mvolts) 0.25 mV [facility] Carlos Alberto RA Sensing Polarity BI [facility] Carlos Alberto RV Pacing Amplitude (volts) 2.0 V [facility] Carlos Alberto RV Pacing Polarity BI [facility] Carlos Alberto RV Pacing Pulse Width (ms) 0.4 ms [facility] Carlos Alberto RV Sensing Amplitude (mvolts) 0.6 mV [facility] Carlos Alberto RV Sensing Polarity BI [facility] Detection Configuration (Vent) 2 - Zone [facility] FastVT_Detection Interval 333 ms [facility] FastVT_Therapy Configuration 2 ATP(s) + 6 Shock(s) [facility] ICD FastVT DetectionStatus ENABLED [facility] ICD-AMS EPISODES 170 {beats}/min [facility] ICD-ATP Episodes (Vent) 0 [facility] ICD-ATRIALFIBRILLATION [address] [facility] ICD-ATRIALTACHYCARDIA 1107 [facility] ICD-Device Mfg BSX [facility] ICD-LEADIMPEDANCEATRIAL 507 ohm [facility] ICD-Percent Pacing (Atrial) 3 % [facility] ICD-Percent Pacing (Vent) 100 % [facility] ICD-Shocks Aborted (Vent) 0 [facility] [id number] 0 [facility] ICD-SHOCKSABORTED 0 [facility] ICD-SHOCKSDELIVEREDVENT RICULAR 0 [facility] ICD-Ventricular Fibrillation 0 [facility] ICD-VVDELAY_MS 20 ms [facility] Implant Date 03/12/2018 [facility] Lead Impedance (LV) 738 ohm [facility] Lead Impedance (RV) 517 ohm [facility] Lead Impedance High Voltage 77 ohm [facility] Lead1 Mfg [employer] [facility] Lead2 Mfg Guidant [facility] Lead3 Mfg Guidant [facility] Location RA [facility] Location LV [facility] Location RV [facility] Lower Rate (bpm) 50 {beats}/min [facility] LV PACING % 100 % [facility] Max Sensor Rate (bpm) 130 {beats}/min [facility] MDT_PROG_TACHY_ZONE_DET ECTIONS_STATUS ENABLED [facility] Model G150 DYNAGEN SCRUBBER SYSTEM ATTENDANT-D [facility] Model 0292 [employer] [place] 4-Site SG [facility] Model 4135 Dextrus [facility] Model 4542 EasyTrak 2 IS-1, 80 cm [facility] Pacing Mode DDDR [facility] Serial Number [id number] [facility] Serial Number [id number] [facility] Serial Number [id number] [facility] Serial Number [id number] [facility] Test Charge Energy 21 J [facility] Test Charge Time 11.2 s [facility] Therapy Status (Vent) Enabled [facility] Thresh LV Capture Amplitude (volts) 1.5 V [facility] Thresh LV Capture Duration (ms) 1.0 ms [facility] Thresh RA Capture Amplitude (volts) 0.5 V [facility] Thresh RA Capture Duration (ms) 0.4 ms [facility] Thresh RV Capture Amplitude (VOLTS) 0.7 V [facility] Thresh RV Capture Duration (MS) 0.4 ms [facility] Tracking Rate (bpm) 130 {beats}/min [facility] VF Zone Detection Interval 333 ms [facility] VF Zone Therapy Configuration 2 ATP(s) + 6 Shock(s) [facility] No Panel Informationon 10-21 BLANK _ [facility] ICD-ATRIALTACHYCARDIA 0 [facility] ICD-Fast Ventricular Tachycardia 0 [facility] Implant Date 09/03/2013 [facility] CNPNon 10-10-2023 CNPN Telephone ([facility]) MICHELLE JULES ([id number]) 1965 F Date Time Provider Department 10/10/23 [facility] During your visit today, we recorded the following information about you: Hossein Bagley LPN 10/10/2023 4:04 PM Signed Patient started new medication toujeo and victosa. States she dropped to 66 at 145pm. 108 at 2om, 150 at 7pm. Took both medications at 1230pm. Patient was concerned she did something wrong and got nervous to take any night time injections. This nurse reviewed ways to bring glucose up slowly and how to check, if taking in 4oz of Oj, Milk or other juice, candy wait 15min and recheck to make sure glucose readings are coming up. Patient also educated to double check with finger stick to confirm low read. Reviewed injection instructions to take Toujeo Humalog and Victosa in am no PM injections noted at this time. Reminded that an evening balanced snack is also encouraged to avoid glucose dropping over night. Understanding verbalized . Williams Rubin MD 10/14/2023 8:40 AM Signed Noted. Thank you Hossein! Williams Rubin MD Allergies As of Date: 10/10/2023 Noted Allergy Reaction ADHESIVE TAPE (ROSINS) 03/27/2006 9 - Itching LATEX, NATURAL RUBBER 09/09/2018 2 - Rash METFORMIN 07/22/2018 14 - Other: See Comments Comments: Caused arrhythmia issues SEASONAL ALLERGIES 03/01/2023 9 - Itching SIMVASTATIN 11/04/2012 14 - Other: See Comments Comments: myalgia Date Reviewed: 09/12/2023 Reviewed by: Georgette Ness LPN - Fully Assessed Reason for Visit: Patient Question [6160] Cmt: New insulins Prescriptions as of 10/14/2023 - pantoprazole DR (PROTONIX) 40 mg tablet Take 1 tablet by mouth every 12 hours. - liraglutide (VICTOZA) 0.6 mg/ 0.1 ml subcutaneous pen injector Inject 1.8 mg subcutaneously once daily. - insulin glargine U-300 conc (TOUJEO MAX U-300 SOLOSTAR) 300 unit/mL (3 mL) inpn Inject 90 Units subcutaneously every morning. - insulin needles, DISPOSABLE, (PEN NEEDLE) 31 gauge x 5/16 Use 5 needles per dose. 5 per day for her insulin. - insulin lispro (HUMALOG KWIKPEN) 100 unit/mL INJECT 8 UNITS SUBCUTANEOUSLY THREE TIMES A DAY BEFORE MEALS - glyBURIDE 5 mg tablet Take 2 tablets by mouth daily with breakfast. - DULoxetine (CYMBALTA) 60 mg capsule Take 1 capsule by mouth two times a day. - magnesium oxide (MAG-OX) 400 mg (241.3 mg magnesium) tablet Take 1 tablet by mouth two times a day. - Pramipexole 0.75 mg tablet Take 1 tablet by mouth daily at bedtime. - ergocalciferol 50,000 unit capsule (VITAMIN D2, DRISDOL) Take 1 capsule by mouth one time a week. - gabapentin (NEURONTIN) 300 mg capsule Take 1 capsule by mouth daily at bedtime for 270 days. - flash glucose sensor (FREESTYLE LANCE 2 SENSOR) kit Use to check blood sugar before meals and at bedtime - Docusate Sodium (STOOL SOFTENER) 100 mg tab Take 1 capsule by mouth twice daily as needed - acetylcyst/koonoiJ21 /levomefol (METAFOLBIC PLUS ORAL) Take by mouth. - furosemide (LASIX) 40 mg tablet Take 1 tablet by mouth once daily. - cetirizine (ZYRTEC) 10 mg tablet Take 1 tablet by mouth once daily as needed (for itching, sneezing or runny nose). - losartan (COZAAR) 25 mg tablet (Discontinued) Take 1 tablet by mouth once daily. - blood sugar diagnostic ([place] ULTRA TEST) test strip USE TO TEST BLOOD SUGAR THREE TIMES A DAY - aspirin, enteric coated (ECOTRIN LOW STRENGTH) 81 mg EC tablet Take 1 tablet by mouth once daily. - atorvastatin (LIPITOR) 10 mg tablet Take 1 tablet by mouth once daily. - spironolactone (ALDACTONE) 25 mg tablet Take 1 tablet by mouth once daily. - carvedilol (COREG) 25 mg tablet Take 1 tablet by mouth twice daily. 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.* Vitamin D deficiency [E55.9] Family history of colon cancer [Z80.0] Cardiomyopathy, nonischemic (HCC) [I42.8] 04/14/2013 Abnormality of gait [R26.9] 05/04/2014 Ganglion cyst of right foot [M67.471] 09/09/2015 Biventricular ICD (implantable cardioverter-def* Uncontrolled type 2 diabetes mellitus with diab*12/21/2015 Restless leg syndrome [G25.81] 02/09/2016 Peroneal tendinitis [M76.70] 07/12/2016 Pain in joint, ankle and foot [M25.579] 07/12/2016 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 09-19-2023 CAROLN Telephone ([facility]) JIM JULESJAVY Best ([id number]) 1965 F Date Time Provider Department 09/19/23 [facility] During your visit today, we recorded the following information about you: Maria A Purvis LPN 09/19/2023 10:52 AM Signed Prior authorization for Freestyle Lance 2 sensor has been submitted via [employer]. Awaiting determination. Allergies As of Date: 09/19/2023 Noted Allergy Reaction ADHESIVE TAPE (ROSINS) 03/27/2006 9 - Itching LATEX, NATURAL RUBBER 09/09/2018 2 - Rash METFORMIN 07/22/2018 14 - Other: See Comments Comments: Caused arrhythmia issues SEASONAL ALLERGIES 03/01/2023 9 - Itching SIMVASTATIN 11/04/2012 14 - Other: See Comments Comments: myalgia Date Reviewed: 09/12/2023 Reviewed by: Georgette Ness LPN - Fully Assessed Reason for Visit: Medication Authorization [1699] Cmt: Freestyle Lance 2 sensor Prescriptions as of 09/19/2023 - liraglutide (VICTOZA) 0.6 mg/ 0.1 ml subcutaneous pen injector Inject 1.8 mg subcutaneously once daily. - insulin glargine U-300 conc (TOUJEO MAX U-300 SOLOSTAR) 300 unit/mL (3 mL) inpn Inject 90 Units subcutaneously every morning. - pantoprazole DR (PROTONIX) 40 mg tablet take 1 tablet by mouth twice a day - insulin needles, DISPOSABLE, (PEN NEEDLE) 31 gauge x 5/16 Use 5 needles per dose. 5 per day for her insulin. - insulin lispro (HUMALOG KWIKPEN) 100 unit/mL INJECT 8 UNITS SUBCUTANEOUSLY THREE TIMES A DAY BEFORE MEALS - glyBURIDE 5 mg tablet Take 2 tablets by mouth daily with breakfast. - DULoxetine (CYMBALTA) 60 mg capsule Take 1 capsule by mouth two times a day. - magnesium oxide (MAG-OX) 400 mg (241.3 mg magnesium) tablet Take 1 tablet by mouth two times a day. - Pramipexole 0.75 mg tablet Take 1 tablet by mouth daily at bedtime. - ergocalciferol 50,000 unit capsule (VITAMIN D2, DRISDOL) Take 1 capsule by mouth one time a week. - gabapentin (NEURONTIN) 300 mg capsule Take 1 capsule by mouth daily at bedtime for 270 days. - flash glucose sensor (FREESTYLE LANCE 2 SENSOR) kit Use to check blood sugar before meals and at bedtime - Docusate Sodium (STOOL SOFTENER) 100 mg tab Take 1 capsule by mouth twice daily as needed - acetylcyst/pqowkhA87 /levomefol (METAFOLBIC PLUS ORAL) Take by mouth. - furosemide (LASIX) 40 mg tablet Take 1 tablet by mouth once daily. - cetirizine (ZYRTEC) 10 mg tablet Take 1 tablet by mouth once daily as needed (for itching, sneezing or runny nose). - losartan (COZAAR) 25 mg tablet (Discontinued) Take 1 tablet by mouth once daily. - blood sugar diagnostic ([place] ULTRA TEST) test strip USE TO TEST BLOOD SUGAR THREE TIMES A DAY - aspirin, enteric coated (ECOTRIN LOW STRENGTH) 81 mg EC tablet Take 1 tablet by mouth once daily. - atorvastatin (LIPITOR) 10 mg tablet Take 1 tablet by mouth once daily. - spironolactone (ALDACTONE) 25 mg tablet Take 1 tablet by mouth once daily. - carvedilol (COREG) 25 mg tablet Take 1 tablet by mouth twice daily. 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.* Vitamin D deficiency [E55.9] Family history of colon cancer [Z80.0] Cardiomyopathy, nonischemic (HCC) [I42.8] 04/14/2013 Abnormality of gait [R26.9] 05/04/2014 Ganglion cyst of right foot [M67.471] 09/09/2015 Biventricular ICD (implantable cardioverter-def* Uncontrolled type 2 diabetes mellitus with diab*12/21/2015 Restless leg syndrome [G25.81] 02/09/2016 Peroneal tendinitis [M76.70] 07/12/2016 Pain in joint, ankle and foot [M25.579] 07/12/2016 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 MICHELLE JULES ([id number]) 1965 F Date Time Provider Department 09/19/23 [facility] During your visit today, we recorded the following information about you: Maria A Purvis LPN 09/19/2023 10:58 AM Signed Prior authorization for Victoza has been submitted via telephone ([facility]). Reference # [id number]. Awaiting determination. Sonia Cr [facility] 09/24/2023 10:51 AM Signed Reaching out to nursing to determine status of PA for victoza and CGM. Sonia Cr [facility] Tamica Beatty LPN 10/01/2023 5:15 PM Signed I found the fax determinations under scanned documents. Judy and Hilda state that a PA is not required at this time. Phone call to [place] and they closed at 5:00. Phone call to patient and she states that she has not received them. Phone call to [facility] and their network is down. Sonia Cr [facility] 10/02/2023 2:30 PM Signed Contacted patient - informed her to contact pharmacy to determine next steps within the next few days. Patient should be able to obtain medication and CGM. Provided nursing line if patient cannot receive. Appt with pharmD in 10/2023 - informed to bring supplies to next appt. Sonia Cr [facility] Hemoglobin A1C (POCT) Date Value Ref Range Status 08/30/2023 13.7 (A) 4.3 - 5.6 % Final Comment: Location:[facility], [address] [place] [address], [facility] Point of care (POC) Hemoglobin A1c (HGBA1C) testing is intended to assess glucose control and provide a management tool for patients known to have diabetes and their healthcare providers. Target HGBA1C levels may depend on specific clinical circumstances. POC HGBA1C is not intended for use as a diagnostic or screening test; laboratory-based testing should be used for diagnostic purposes. The following information is supplemental and may not be applicable to specific diabetes management situations: The POC device sas bi developer provides a normal range of 4.2% to 6.5% for the HGBA1C POC test. However, the [place] [employer] guidelines indicate that patients with HGBA1C in the range of 5.7% to 6.4% are at increased risk for development of diabetes and that intervention by lifestyle modification may be beneficial. A HGBA1C level greater than or equal to 6.5% is considered diagnostic of diabetes, pending confirmatory testing. Use of HGBA1C testing to evaluate glucose control may not be appropriate for patients with hemoglobin variants or other conditions (e.g. anemia) that alter red blood cell lifespan. Tamica Beatty LPN 10/07/2023 10:18 AM Signed Phone call to [place]: I told them what [employer] said about the PA being covered and didn't require a PA. They then informed me that they were not processing it through [employer]. They were running it through [employer]. I gave them the patient's Medicaid information and both the [employer] and the [email or web address] processed no charge. Phone call to the patient to make her aware. Allergies As of Date: 09/19/2023 Noted Allergy Reaction ADHESIVE TAPE (ROSINS) 03/27/2006 9 - Itching LATEX, NATURAL RUBBER 09/09/2018 2 - Rash METFORMIN 07/22/2018 14 - Other: See Comments Comments: Caused arrhythmia issues SEASONAL ALLERGIES 03/01/2023 9 - Itching SIMVASTATIN 11/04/2012 14 - Other: See Comments Comments: myalgia Date Reviewed: 09/12/2023 Reviewed by: Georgette Ness LPN - Fully Assessed Reason for Visit: Medication Authorization [1829] Cmt: Victoza Prescriptions as of 10/07/2023 - pantoprazole DR (PROTONIX) 40 mg tablet Take 1 tablet by mouth every 12 hours. - liraglutide (VICTOZA) 0.6 mg/ 0.1 ml subcutaneous pen injector Inject 1.8 mg subcutaneously once daily. - insulin glargine U-300 conc (TOUJEO MAX U-300 SOLOSTAR) 300 unit/mL (3 mL) inpn Inject 90 Units subcutaneously every morning. - insulin needles, DISPOSABLE, (PEN NEEDLE) 31 gauge x 5/16 Use 5 needles per dose. 5 per day for her insulin. - insulin lispro (HUMALOG KWIKPEN) 100 unit/mL INJECT 8 UNITS SUBCUTANEOUSLY THREE TIMES A DAY BEFORE MEALS - glyBURIDE 5 mg tablet Take 2 tablets by mouth daily with breakfast. - DULoxetine (CYMBALTA) 60 mg capsule Take 1 capsule by mouth two times a day. - magnesium oxide (MAG-OX) 400 mg (241.3 mg magnesium) tablet Take 1 tablet by mouth two times a day. - Pramipexole 0.75 mg tablet Take 1 tablet by mouth daily at bedtime. - ergocalciferol 50,000 unit capsule (VITAMIN D2, DRISDOL) Take 1 capsule by mouth one time a week. - gabapentin (NEURONTIN) 300 mg capsule Take 1 capsule by mouth daily at bedtime for 270 days. - flash glucose sensor (FREESTYLE LANCE 2 SENSOR) kit Use to check blood sugar before meals and at bedtime - Docusate Sodium (STOOL SOFTENER) 100 mg tab Take 1 capsule by mouth twice daily as needed - acetylcyst/cuwuxxI60 /levomefol (METAFOLBIC PLUS ORAL) Take by mouth. - (more content not included)... Normal [facility] CNOVon 09-12-2023 CNOV Office Visit ([facility]) MICHELLE JULES ([id number]) 1965 F Date Time Provider Department 09/12/23 3:40 PM [facility] During your visit today, we recorded the following information about you: Temperature Blood pressure Weight Height 96.8 degrees 115/70 109.3 kg 1.753 m Sonia Cr, [facility] 09/13/2023 3:33 PM Signed REASON FOR CONSULT: diabetes Referring Provider: Dr. Thornton Date of Consult: 08/30/2023 Michelle Jules is a 58 year old female who is presenting for follow up visit in person. Patient consents to pharmacy collaborative practice agreement. . Historically followed with pharmD - last appt 03/2023. HPI: SMBG - 366, 444, 495, 332, 271, 273, 273, 251 Post prandial - 358, 468, 445, 549, 376, 466, 481, 385 Denies s/s of hypo or hyperglycemia Has CGM but states insurance would not pay for it Payor: [employer] MEDICAID / Plan: [place] [employer] [place] / Product Type: Medicaid / Previously used CGM Reports recent stress with mom being in the hospital, son had an injury Regimen as below States frequently misses humalog lunch dose Reports does not miss lantus or pills States has been out of victoza - insurance needed an authorization? Has been out of therapy for at least a month Current Diabetes Medications Lantus - 45 units BID Humalog 8 units TID Victoza - 1.8 mg; see above Glyburide - 5 mg BID On BLAIRE/ARB: No, ACR <30 On Statin: Yes On aspirin: Yes Prior intolerance to metformin Payor: [employer] MEDICAID / Plan: [place] [employer] [place] / Product Type: Medicaid / 24 hour recall: Breakfast - cereal Lunch - pasta Dinner - doesn't remember Ex- and his mother do shopping She does the cooking BEDS7: negative Glass of pop x1 per day Tea is my weakness - not sweetened Previously spoke with dietitian Not interested at this time Past medical, family and social history reviewed and updated. REVIEW OF SYSTEMS Review of Systems Constitutional: Negative for chills and fever. PAST MEDICAL HISTORY Diagnosis Date Cardiomyopathy, nonischemic (HCC) 04/2013 Degenerative joint disease involving multiple joints shoulders, right knee Essential hypertension, benign Family history of colon cancer 5y screening cycle GERD (gastroesophageal reflux disease) Restless leg syndrome 02/09/2016 Snoring Vitamin D deficiency ALLERGIES Allergen Reactions Adhesive Tape (Natty* Itching Latex, Natural Rubb* Rash Metformin Other: See Comments Caused arrhythmia issues Seasonal Allergies Itching Simvastatin Other: See Comments myalgia VITALS: BP 115/70 Temp 36 ?C (96.8 ?F) Ht 5' 9 (1.753 m) Wt 241 lb (109.3 kg) BMI 35.59 kg/m? EXAM: Last 3 Encounter BP Readings: Date: BP: 09/12/2023 115/70 08/30/2023 118/77 05/20/2023 127/76 Wt: 235 lb 12.8 oz (107 kg) BMI: 34.82 kg/(m2) LABS: Reviewed Lab Results Component Value Date HBA1C 13.7 08/30/2023 HBA1C 12.5 05/20/2023 HBA1C 14.7 01/22/2023 HBA1C 6.8 02/23/2019 HBA1C 7.9 11/12/2018 HBA1C 9.4 07/21/2018 CMP: Glucose 304 01/25/2023 BUN 13 01/25/2023 Creatinine 0.64 01/25/2023 Sodium 137 01/25/2023 Potassium 4.2 01/25/2023 Albumin 4.0 01/25/2023 Calcium 9.4 01/25/2023 AST 16 01/25/2023 ALT 23 01/25/2023 Lab Results Component Value Date CHOL 177 01/25/2023 CHOL 147 07/21/2018 LDL 99 01/25/2023 LDL 63 07/21/2018 HDL 38 01/25/2023 HDL 38 07/21/2018 TG 201 01/25/2023 TG 230 07/21/2018 Albumin/Creat Ratio (mg/g) Date Value 01/25/2023 7 Creatinine clearance cannot be calculated (Patient's most recent lab result is older than the maximum 180 days allowed.) ASSESSMENT/PLAN 1. Type 2 diabetes mellitus with diabetic neuropathy, with long-term current use of insulin (HCC) - ICD9: 250.60, 357.2, V58.67, ICD10: E11.40, Z79.4 (primary diagnosis) - Uncontrolled - will call regarding CGM coverage - Statin prescribed - atorvastatin - minimize carb-based meal portions - Blood glucose monitoring on a once daily schedule - Discussed diabetic education issues of diabetes complications and monitoring required and hypoglycemic/hypergl ycemic symptoms - LIRAGLUTIDE 0.6 MG/0.1 ML (18 MG/3 ML) SUBCUTANEOUS PEN INJECTOR - will call pharmacy regarding availability - CHANGE INSULIN GLARGINE (U-300) CONC. 300 UNIT/ML (3 ML) SUBCUTANEOUS PEN - CONTINUE humalog 2. Preventative health care - ICD9: V70.0, ICD10: Z00.00 - Counseled on healthy diet and regular exercise - Depression screening tool completed and reviewed with patient. Based on score and interview, patient is not at risk for depression and recommended no further intervention at this time. - DEPRESSION SCREENING/ASSESSMENT 3. Food insecurity - ICD9: V60.89, ICD10: Z59.41 Referral to food pantry 4. Diabetes education, encounter for - ICD9: V65.49, ICD10: Z71.89 As above Patient verbalized understa (more content not included)... Normal [facility](OH[facility] 25-hydroxyvitamin D3 [Mass/Vol] 35.3 ng/mL Normal 31.0-80.0 [facility] Comment on above: Order Comment: Speci men Type: BLOOD SPECIMEN Ordering Facility: [facility] Address: [address] [place] [address] Result Comment: Clas sification of 25 [place] Vitamin D status: Deficiency/Insufficiency: < or = 30 ng/ml. Sufficiency/Optimal Levels: 31-80 ng/mL Toxicity: > 100 ng/mL. Test performed by chemiluminescent immunoassay. Performed By: #### [id number] #### [facility] CLIA [id number] [address] [place] [address] [place] [address] [place] CNOVon 08-30-2023 CNOV Office Visit (AGCFM) MICHELLE JULES ([id number]) 1965 F Date Time Provider Department 08/30/23 2:40 PM WILLIAMS RUBIN [facility] During your visit today, we recorded the following information about you: Temperature Pulse Blood pressure Weight 97 degrees 81/minute 118/77 107 kg Height 1.753 m Williams Rubin MD 08/30/2023 9:23 PM Signed [facility] [employer] [place] / [address] [place] [id number] Visit Date: August 30, 2023 Name: Michelle Jules Date of : 1965 MRN/E #: [id number] Subjective Patient is a 58 year old year old female with PMH essential hypertension, biventricular ICD in place, hyperlipidemia, uncontrolled type 2 diabetes mellitus with long-term use of insulin, restless leg syndrome presenting in the office today with the following: Diabetes She presents for her follow-up diabetic visit. She has type 2 diabetes mellitus. Her disease course has been worsening. Pertinent negatives for hypoglycemia include no confusion, dizziness or tremors. - Associated symptoms include fatigue, polydipsia, polyuria and weight loss. - - - Pertinent negatives for diabetes include no blurred vision, no foot paresthesias and no polyphagia. Symptoms are worsening. - 8 units lispro with meals, 1.8 mg Victoza increased 08/12/23 notified by Jeanie Murphy, 45 units Lantus and misses when running low. Also taking glyburide 5mg - Lost 8 Ibs since may - cut back on tea, 1 can of sugar-free pop a day. - A1c today is 13.7 - Need refill for Victoza and Lantus - feeling more depressed we had increased Duloxetine to 120 mg on 08/02/23 - Patient is stress eating : Watching gc-kqkgkq-nr-law and real mom in hospital.mom hospitalized and she is stress eating peanut butter sugar free honey in it and eats it with crackers and a root beer float, bananas - has met with Dr. Cr - Her insurance won't cover CGM - Fasting low 200s and high 500s Constipated - taking stool softeners BID - drinking over 32 oz of water daily Intertrigo - doesn't itch, has always had it since diagnosed with diabetes - has a smell and feels irritated - ROS negative other than stated in HPI. - I have confirmed and edited as necessary the chief complaint, medications, past medical, family and social histories. Part of this note has been created using voice recognition software. It may contain errors which are inherent in voice-recognition technology. Objective Vital Signs BP 118/77 (BP Site: Right Arm, BP Position: Sitting) Pulse 81 Temp 36.1 ?C (97 ?F) Ht 5' 9 (1.753 m) Wt 235 lb 12.8 oz (107 kg) SpO2 95% BMI 34.82 kg/m? Last 3 Encounter BP Readings: Date: BP: 05/20/2023 127/76 03/29/2023 134/77 03/15/2023 130/75 Last 3 Encounter Wt Readings: Date: Wt: 05/20/2023 242 lb 6.4 oz (110 kg) 04/03/2023 243 lb (110.2 kg) 03/29/2023 242 lb (109.8 kg) Physical Exam Vitals reviewed. Constitutional: General: She is not in acute distress. Appearance: Normal appearance. She is not ill-appearing. HENT: Nose: No congestion. Mouth/Throat: Mouth: Mucous membranes are moist. Eyes: Extraocular Movements: Extraocular movements intact. Cardiovascular: Rate and Rhythm: Normal rate and regular rhythm. Heart sounds: Normal heart sounds. No murmur heard. Pulmonary: Effort: Pulmonary effort is normal. No respiratory distress. Breath sounds: No wheezing, rhonchi or rales. Abdominal: General: There is no distension. Palpations: Abdomen is soft. There is no mass. Tenderness: There is no abdominal tenderness. There is no guarding. Hernia: No hernia is present. Musculoskeletal: Cervical back: Normal range of motion. Right lower leg: No edema. Left lower leg: No edema. Skin: General: Skin is warm. Capillary Refill: Capillary refill takes less than 2 seconds. Coloration: Skin is not jaundiced. Findings: No erythema or rash. Comments: Skin under panus was dry; no yeast Neurological: General: No focal deficit present. Mental Status: She is alert and oriented to person, place, and time. Psychiatric: Mood and Affect: Mood normal. Behavior: Behavior normal. Feet:Shoes and socks removed, Are you having foot pain No, No deformities, ulcers, calluses, and normal distal pulses ASSESSMENT/PLAN: 1. Type 2 diabetes mellitus with diabetic neuropathy, with long-term current use of insulin ([facility]) - ICD9: 250.60, 357.2, V58.67, ICD10: E11.40, Z79.4 (primary diagnosis) - Uncontrolled - Worsening control - Counseled on healthy diet and regular exercise - Discussed need for and benefit of weight loss. BMI 34.82 kg/(m2) - Discussed diabetic education issues of - LIRAGLUTIDE 0.6 MG/0.1 ML (18 MG/3 ML) SUBCUTANEOUS PEN INJECTOR - BASAGLAR KWIKPEN U-100 INSULIN 100 UNIT/ML (more content not included)... Normal [facility] HEMOGLOBIN A1C (POC)on 08-30 HbA1c (Bld) [Mass fraction] 13.7 % Abnormal 4.3 - 5.6 % [facility]PG[facility] MICHELLE JULES ([id number]) 1965 F Date Time Provider Department 07/31/23 HOMAR VASQUES [facility] During your visit today, we recorded the following information about you: Karina Anderson 07/31/2023 12:16 PM Signed Patient called and would like a nurse to call her back about her medication, DULoxetine (CYMBALTA) 60 mg capsule. She feels it is not helping her depression and has questions about the medication. Faviola Brennan LPN 07/31/2023 1:28 PM Signed Pt called and stated that she feels her Cymbalta is not working. Pt reports feeling more depressed and having night insomnia. Pt would like to know if her medication should be increased or should she be taking a different medication altogether. Please advise Lisseth Cristiane 08/02/2023 10:12 AM Signed Pt called again in regards to this issue. Told her the message was sent and we are waiting on a response from the doctor. Maria A Banerjee 08/02/2023 3:09 PM Signed Patient called back in regard to medication and hopes to have something done about her medication before the week, patient states her depression is getting worse. Message has been sent to nursing and Dr. Rubin previously. Please advise Williams Munoz MD 08/02/2023 6:46 PM Signed Called patient. She denied staying awake for multiple days. She denied SI and HI. Increased her Cymbalta to 120 mg of Cymbalta a day and will re-assess at visit on 08/30/23. Recommended she use a happy lamp she can get at [facility] that can help with depression during the winter. She denied any recent events and said she is excited her daughter is visiting her soon. I refilled the following medications: Vitamin D, insulin needles, magnesium oxide, pramipexole. I ordered Vitamind D-OH lab to check her level. MD Scottie Nina Aviva, MD 08/02/2023 6:46 PM Signed Addended by: WILLIAMS RUBIN on: 08/02/2023 06:46 PM Modules accepted: Orders Allergies As of Date: 07/31/2023 Noted Allergy Reaction ADHESIVE TAPE (ROSINS) 03/27/2006 9 - Itching LATEX, NATURAL RUBBER 09/09/2018 2 - Rash METFORMIN 07/22/2018 14 - Other: See Comments Comments: Caused arrhythmia issues SEASONAL ALLERGIES 03/01/2023 9 - Itching SIMVASTATIN 11/04/2012 14 - Other: See Comments Comments: myalgia Date Reviewed: 05/20/2023 Reviewed by: Lilli See LPN - Fully Assessed Reason for Visit: Medication Problem [65] Cmt: Patient called and would like a nurse to call her back about her medication, DULoxetine (CYMBALTA) 60 mg capsule. She feels it is not helping her depression and has questions about the medication. Primary Visit Diagnosis:Depression , unspecified depression type [F32.A] Other Visit Diagnoses:Essential hypertension, benign [I10] Restless leg syndrome [G25.81] Medication monitoring encounter [Z51.81] Type 2 diabetes mellitus with diabetic neuropathy, with long-term current use of insulin ([facility]) [E11.40, Z79.4] Order(s):DULoxetine (CYMBALTA) 60 mg capsuleTake 1 capsule by mouth two times a day.Disp: 120 capsuleRfl: 3 magnesium oxide (MAG-OX) 400 mg (241.3 mg magnesium) tabletTake 1 tablet by mouth two times a day.Disp: 60 tabletRfl: 11 Pramipexole 0.75 mg tabletTake 1 tablet by mouth daily at bedtime.Disp: 90 tabletRfl: 1 ergocalciferol 50,000 unit capsule (VITAMIN D2, DRISDOL)Take 1 capsule by mouth one time a week.Disp: 12 capsuleRfl: 3 VITAMIN D 25 HYDROXY [SQVITD] Order #: [id number] FUTURE insulin needles, DISPOSABLE, (PEN NEEDLE) 31 gauge x 5/16Use 5 needles per dose. 5 per day for her insulin.Disp: 100 EachRfl: 11 Prescriptions as of 08/02/2023 - DULoxetine (CYMBALTA) 60 mg capsule Take 1 capsule by mouth two times a day. - magnesium oxide (MAG-OX) 400 mg (241.3 mg magnesium) tablet Take 1 tablet by mouth two times a day. - Pramipexole 0.75 mg tablet Take 1 tablet by mouth daily at bedtime. - ergocalciferol 50,000 unit capsule (VITAMIN D2, DRISDOL) Take 1 capsule by mouth one time a week. - insulin needles, DISPOSABLE, (PEN NEEDLE) 31 gauge x 5/16 Use 5 needles per dose. 5 per day for her insulin. - liraglutide (VICTOZA) 0.6 mg/ 0.1 ml subcutaneous pen injector Inject 1.2 mg subcutaneously once daily. - insulin glargine (BASAGLAR KWIKPEN U-100 INSULIN) 100 unit/mL (3 mL) Inject 45 Units subcutaneously two times a day. - insulin lispro (HUMALOG KWIKPEN) 100 unit/mL INJECT 8 UNITS SUBCUTANEOUSLY THREE TIMES A DAY BEFORE MEALS - gabapentin (NEURONTIN) 300 mg capsule Take 1 capsule by mouth daily at bedtime for 270 days. - flash glucose sensor (FREESTYLE LANCE 2 SENSOR) kit Use to check blood sugar before meals and at bedtime - Docusate Sodium (STOOL SOFTENER) 100 mg tab Take 1 capsule by mouth twice daily as needed - acetylcyst/anwaiuC22 /levomefol (METAFOLBIC PLUS ORAL) Take by mouth. - glyBURIDE 5 mg tabl (more content not included)... Normal [facility] Telephone ([facility]) MICHELLE JULES ([id number]) 1965 F Date Time Provider Department 07/29/23 [facility] RUBIN [facility] During your visit today, we recorded the following information about you: Anderson, Karina 07/29/2023 2:41 PM Signed Patient stopped in to get refills of her prescriptions but didn't have her list of what she needed. She would like the doctor to call her back so she can get her prescriptions faxed over to her pharmacy. Allergies As of Date: 07/29/2023 Noted Allergy Reaction ADHESIVE TAPE (ROSINS) 03/27/2006 9 - Itching LATEX, NATURAL RUBBER 09/09/2018 2 - Rash METFORMIN 07/22/2018 14 - Other: See Comments Comments: Caused arrhythmia issues SEASONAL ALLERGIES 03/01/2023 9 - Itching SIMVASTATIN 11/04/2012 14 - Other: See Comments Comments: myalgia Date Reviewed: 05/20/2023 Reviewed by: Lilli See LPN - Fully Assessed Reason for Visit: Refill Request [94] Cmt: Patient stopped in to get refills of her prescriptions but didn't have her list of what she needed. She would like the doctor to call her back so she can get her prescriptions faxed over to her pharmacy. Prescriptions as of 07/31/2023 - liraglutide (VICTOZA) 0.6 mg/ 0.1 ml subcutaneous pen injector Inject 1.2 mg subcutaneously once daily. - insulin glargine (BASAGLAR KWIKPEN U-100 INSULIN) 100 unit/mL (3 mL) Inject 45 Units subcutaneously two times a day. - insulin lispro (HUMALOG KWIKPEN) 100 unit/mL INJECT 8 UNITS SUBCUTANEOUSLY THREE TIMES A DAY BEFORE MEALS - gabapentin (NEURONTIN) 300 mg capsule Take 1 capsule by mouth daily at bedtime for 270 days. - flash glucose sensor (FREESTYLE LANCE 2 SENSOR) kit Use to check blood sugar before meals and at bedtime - insulin needles, DISPOSABLE, (PEN NEEDLE) 31 gauge x 5/16 Use one needle per dose. 1 per day. - Docusate Sodium (STOOL SOFTENER) 100 mg tab Take 1 capsule by mouth twice daily as needed - ergocalciferol 50,000 unit capsule (VITAMIN D2, DRISDOL) Take 1 capsule by mouth one time a week. - DULoxetine (CYMBALTA) 60 mg capsule Take 1 capsule by mouth once daily. - acetylcyst/tmapjhP09 /levomefol (METAFOLBIC PLUS ORAL) Take by mouth. - glyBURIDE 5 mg tablet Take 1 tablet by mouth daily with breakfast. - oxybutynin ER (DITROPAN XL) 15 mg 24 hr Extended Rel Tab Take 1 tablet by mouth once daily. - pantoprazole DR (PROTONIX) 40 mg tablet Take 1 tablet by mouth twice daily. - furosemide (LASIX) 40 mg tablet Take 1 tablet by mouth once daily. - cetirizine (ZYRTEC) 10 mg tablet Take 1 tablet by mouth once daily as needed (for itching, sneezing or runny nose). - losartan (COZAAR) 25 mg tablet (Discontinued) Take 1 tablet by mouth once daily. - Pramipexole 0.75 mg tablet Take 1 tablet by mouth daily at bedtime. - blood sugar diagnostic ([place] ULTRA TEST) test strip USE TO TEST BLOOD SUGAR THREE TIMES A DAY - aspirin, enteric coated (ECOTRIN LOW STRENGTH) 81 mg EC tablet Take 1 tablet by mouth once daily. - atorvastatin (LIPITOR) 10 mg tablet Take 1 tablet by mouth once daily. - spironolactone (ALDACTONE) 25 mg tablet Take 1 tablet by mouth once daily. - carvedilol (COREG) 25 mg tablet Take 1 tablet by mouth twice daily. - magnesium oxide (MAG-OX) 400 mg (241.3 mg magnesium) tablet Take 1 tablet by mouth twice daily. 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.* Vitamin D deficiency [E55.9] Family history of colon cancer [Z80.0] Cardiomyopathy, nonischemic (HCC) [I42.8] 04/14/2013 Abnormality of gait [R26.9] 05/04/2014 Ganglion cyst of right foot [M67.471] 09/09/2015 Biventricular ICD (implantable cardioverter-def* Uncontrolled type 2 diabetes mellitus with diab*12/21/2015 Restless leg syndrome [G25.81] 02/09/2016 Peroneal tendinitis [M76.70] 07/12/2016 Pain in joint, ankle and foot [M25.579] 07/12/2016 Nonallergic rhinitis [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 06-26-2023 [facility] Telephone (AGCFM) MICHELLE JULES ([id number]) 1965 F Date Time Provider Department 06/26/23 [facility] RUBIN [facility] During your visit today, we recorded the following information about you: Williams Rubin MD 06/26/2023 10:57 AM Signed GLP-1 Pen Question Michelle Jules called to ask if she can use her mother's extra unused and unopened Trulicity pens (her mother has 3 extra boxes that in 2023). She used her last 1.2 mg dose of Victoza this week. Her insurance will not restart until July 15, 2023 and she has worked with child protective services social worker and patient outreach to get financial assistance for her insulin. She states she is not able to afford the $25 for her insulin and has no means to buy insulin or the Victoza pen. We decided that using the on packaged and unused brand-new Trulicity pen during this month until July 15 is the best option. Since she is on 1.2 mg of Victoza she will start with 0.75 mg of Trulicity. We will monitor her sugars, and if they are still high after a week on 0.75 mg of the Trulicity, we will increase to 1.5 mg on the second week of using Trulicity. -Her fasting glucose today was 199, the lowest reading she has had and first reading below 300 that she has had in months. She denied any dizziness, diaphoresis, shakiness, tremors, lightheadedness, or passing out. She states that she is feeling well and would like to continue to keep her sugars under control. She stated that she has enough insulin to get through the month as she will use extra insulin that her mother has that is not .. Appointment with Dr. Cr -She is not able to make her appointment with Dr. Cr on 07/03/2023 because she will not have insurance coverage for this visit. She says she would like to reschedule to see Dr. Cr in July. I will contact Dr. Cr to let her know and will let our net front end developer know as well. Vaccines -She received her COVID booster this week and I documented this in the chart. Faisal Patel 06/26/2023 1:44 PM Signed I called the pt and gave her a number to financial clearance to see if they will approve her financial clearance that I placed so she can keep her appt. Pt said she will reach out this week and let me know what they say. Faisal Fang 06/27/2023 8:48 AM Signed 07/24/23 3p appt on hold for Pharm D for Diabetes. Until financial clearance is approved Faisal Patel Allergies As of Date: 06/26/2023 Noted Allergy Reaction ADHESIVE TAPE (ROSINS) 03/27/2006 9 - Itching LATEX, NATURAL RUBBER 09/09/2018 2 - Rash METFORMIN 07/22/2018 14 - Other: See Comments Comments: Caused arrhythmia issues SEASONAL ALLERGIES 03/01/2023 9 - Itching SIMVASTATIN 11/04/2012 14 - Other: See Comments Comments: myalgia Date Reviewed: 05/20/2023 Reviewed by: Lilli See LPN - Fully Assessed Reason for Visit: Patient Question [1477] Primary Visit Diagnosis:Encounter for immunization [Z23] Other Visit Diagnosis:Type 2 diabetes mellitus with diabetic neuropathy, with long-term current use of insulin (HCC) [E11.40, Z79.4] Order(s):liraglutide (VICTOZA) 0.6 mg/ 0.1 ml subcutaneous pen injectorInject 1.2 mg subcutaneously once daily.Disp: 3 mLRfl: 3 Prescriptions as of 06/27/2023 - liraglutide (VICTOZA) 0.6 mg/ 0.1 ml subcutaneous pen injector Inject 1.2 mg subcutaneously once daily. - insulin glargine (BASAGLAR KWIKPEN U-100 INSULIN) 100 unit/mL (3 mL) Inject 45 Units subcutaneously two times a day. - insulin lispro (HUMALOG KWIKPEN) 100 unit/mL INJECT 8 UNITS SUBCUTANEOUSLY THREE TIMES A DAY BEFORE MEALS - gabapentin (NEURONTIN) 300 mg capsule Take 1 capsule by mouth daily at bedtime for 270 days. - flash glucose sensor (FREESTYLE LANCE 2 SENSOR) kit Use to check blood sugar before meals and at bedtime - insulin needles, DISPOSABLE, (PEN NEEDLE) 31 gauge x 5/16 Use one needle per dose. 1 per day. - Docusate Sodium (STOOL SOFTENER) 100 mg tab Take 1 capsule by mouth twice daily as needed - ergocalciferol 50,000 unit capsule (VITAMIN D2, DRISDOL) Take 1 capsule by mouth one time a week. - DULoxetine (CYMBALTA) 60 mg capsule Take 1 capsule by mouth once daily. - acetylcyst/eoyafhS06 /levomefol (METAFOLBIC PLUS ORAL) Take by mouth. - glyBURIDE 5 mg tablet Take 1 tablet by mouth daily with breakfast. - oxybutynin ER (DITROPAN XL) 15 mg 24 hr Extended Rel Tab Take 1 tablet by mouth once daily. - pantoprazole DR (PROTONIX) 40 mg tablet Take 1 tablet by mouth twice daily. - furosemide (LASIX) 40 mg tablet Take 1 tablet by mouth once daily. - cetirizine (ZYRTEC) 10 mg tablet Take 1 tablet by mouth once daily as needed (for itching, sneezing or runny nose). - losartan (COZAAR) 25 mg tablet (Discontinued) Take 1 tablet by mouth once daily. - Pramipexole 0.75 mg tablet Take 1 tablet by mouth daily at bedtime. - blood (more content not included)... [facility] 06-20-2023 [facility] Telephone ([facility]) MICHELLE JULES ([id number]) 1965 F Date Time Provider Department 06/20/23 [facility] During your visit today, we recorded the following information about you: Maria A Purvis LPN 06/20/2023 3:49 PM Signed Prior authorization for Basaglar kwikpen 100unit/ml has been submitted via [employer]. Awaiting determination. Tamica Beatty LPN 06/25/2023 10:03 AM Signed Basaglar kwikpen 100unit/ml- DENIED: Denied completely for medical neccessity because: Do not see medical record of a history of therapeutic failure or intolerance to 3 preferred hypoglycemics Preferred alternatives: Insulin Glargine Solostar/Vial, Latus solostar/Vial, Levemir Flextouch/Vial, toujeo Solostar Pen/Toujeo Max Solostar Pen Phone call to [place] [facility] they tried to process a claim for the Lantus but it still rejected but the pharmacist stated that they would call the insurance to get the correct codes to get it to go through. They agreed to notify this office with any issues. Allergies As of Date: 06/20/2023 Noted Allergy Reaction ADHESIVE TAPE (ROSINS) 03/27/2006 9 - Itching LATEX, NATURAL RUBBER 09/09/2018 2 - Rash METFORMIN 07/22/2018 14 - Other: See Comments Comments: Caused arrhythmia issues SEASONAL ALLERGIES 03/01/2023 9 - Itching SIMVASTATIN 11/04/2012 14 - Other: See Comments Comments: myalgia Date Reviewed: 05/20/2023 Reviewed by: Lilli See LPN - Fully Assessed Reason for Visit: Medication Authorization [1699] Cmt: Basaglar kwikpen 100unit/ml- DENIED Prescriptions as of 06/25/2023 - insulin glargine (BASAGLAR KWIKPEN U-100 INSULIN) 100 unit/mL (3 mL) Inject 45 Units subcutaneously two times a day. - insulin lispro (HUMALOG KWIKPEN) 100 unit/mL INJECT 8 UNITS SUBCUTANEOUSLY THREE TIMES A DAY BEFORE MEALS - gabapentin (NEURONTIN) 300 mg capsule Take 1 capsule by mouth daily at bedtime for 270 days. - liraglutide (VICTOZA) 0.6 mg/ 0.1 ml subcutaneous pen injector Inject 0.6 mg subcutaneously once daily. - flash glucose sensor (FREESTYLE LANCE 2 SENSOR) kit Use to check blood sugar before meals and at bedtime - insulin needles, DISPOSABLE, (PEN NEEDLE) 31 gauge x 5/16 Use one needle per dose. 1 per day. - Docusate Sodium (STOOL SOFTENER) 100 mg tab Take 1 capsule by mouth twice daily as needed - ergocalciferol 50,000 unit capsule (VITAMIN D2, DRISDOL) Take 1 capsule by mouth one time a week. - DULoxetine (CYMBALTA) 60 mg capsule Take 1 capsule by mouth once daily. - acetylcyst/jaxzurH72 /levomefol (METAFOLBIC PLUS ORAL) Take by mouth. - glyBURIDE 5 mg tablet Take 1 tablet by mouth daily with breakfast. - oxybutynin ER (DITROPAN XL) 15 mg 24 hr Extended Rel Tab Take 1 tablet by mouth once daily. - pantoprazole DR (PROTONIX) 40 mg tablet Take 1 tablet by mouth twice daily. - furosemide (LASIX) 40 mg tablet Take 1 tablet by mouth once daily. - cetirizine (ZYRTEC) 10 mg tablet Take 1 tablet by mouth once daily as needed (for itching, sneezing or runny nose). - losartan (COZAAR) 25 mg tablet (Discontinued) Take 1 tablet by mouth once daily. - Pramipexole 0.75 mg tablet Take 1 tablet by mouth daily at bedtime. - blood sugar diagnostic ([place] ULTRA TEST) test strip USE TO TEST BLOOD SUGAR THREE TIMES A DAY - aspirin, enteric coated (ECOTRIN LOW STRENGTH) 81 mg EC tablet Take 1 tablet by mouth once daily. - atorvastatin (LIPITOR) 10 mg tablet Take 1 tablet by mouth once daily. - spironolactone (ALDACTONE) 25 mg tablet Take 1 tablet by mouth once daily. - carvedilol (COREG) 25 mg tablet Take 1 tablet by mouth twice daily. - magnesium oxide (MAG-OX) 400 mg (241.3 mg magnesium) tablet Take 1 tablet by mouth twice daily. 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.* Vitamin D deficiency [E55.9] Family history of colon cancer [Z80.0] Cardiomyopathy, nonischemic (HCC) [I42.8] 04/14/2013 Abnormality of gait [R26.9] 05/04/2014 Ganglion cyst of right foot [M67.471] 09/09/2015 Biventricular ICD (implantable cardioverter-def* Uncontrolled type 2 diabetes mellitus with diab*12/21/2015 Restless leg syndrome [G25.81] 02/09/2016 Peroneal tendinitis [M76.70] 07/12/2016 Pain in joint, ankle and foot [M25.579] 07/12/2016 Nonallergic rhinitis [J31.0] 04/03/2018 Cystocele with prolapse [N81.4] 11/12/2018 Urgency of urination [R39.15] 11/12/2018 Mixed incontinence [N39.46] 11/12/2018 Obesity, Class II, BMI 35-39.9 [E66.9] 01/22/2023 Hyperlipidemia, mixed [E78.2] 05/20/2023 Encounter Status:Closed by MARIA A UPRVIS on 06/24/23 [facility] Telephone ([facility]) MICHELLE JULES ([id number]) 1965 F Date Time Provider Department 06/20/23 WALESKA BLEDSOE [facility] During your visit today, we recorded the following information about you: Waleska Bledsoe LSW 06/20/2023 5:25 PM Signed Reason for Contact: Referral from Dr Cr and Naomi Murphy. Type of Contact: Phone Present: spoke to patient via telephone Summary: Patient is being mailed Alyssa Cares and Brad Nordisk for period without prescription coverage. Plan: Mail two blank copies. Approximate time spent with patient: 10 minutes GIOVANY Bhat Cheryl, LSW 07/01/2023 4:06 PM Signed Outcall to patient to verify status of return of applications for Alyssa Cares and Brad Nordisk PAP applications. [facility] with direct contact details. GIOVANY Bhat Cheryl, LSW 07/01/2023 4:19 PM Signed Outcall to patient on status of applications. Patient advised she has enough medication until July. Reports Medicaid was filed and is now at stage or returning financials to them. She believes she will have Medicaid at start of July. [facility] SW advised that if she will have Medicaid the coverage will be denied through the PAP as she will have medication coverage. Notifying Scottie Coley and Jeanie Murphy as fyi - open to comments. GIOVANY Bhat Allergies As of Date: 06/20/2023 Noted Allergy Reaction ADHESIVE TAPE (ROSINS) 03/27/2006 9 - Itching LATEX, NATURAL RUBBER 09/09/2018 2 - Rash METFORMIN 07/22/2018 14 - Other: See Comments Comments: Caused arrhythmia issues SEASONAL ALLERGIES 03/01/2023 9 - Itching SIMVASTATIN 11/04/2012 14 - Other: See Comments Comments: myalgia Date Reviewed: 05/20/2023 Reviewed by: Lilli See LPN - Fully Assessed Reason for Visit: PAP Status [Other] Prescriptions as of 07/01/2023 - liraglutide (VICTOZA) 0.6 mg/ 0.1 ml subcutaneous pen injector Inject 1.2 mg subcutaneously once daily. - insulin glargine (BASAGLAR KWIKPEN U-100 INSULIN) 100 unit/mL (3 mL) Inject 45 Units subcutaneously two times a day. - insulin lispro (HUMALOG KWIKPEN) 100 unit/mL INJECT 8 UNITS SUBCUTANEOUSLY THREE TIMES A DAY BEFORE MEALS - gabapentin (NEURONTIN) 300 mg capsule Take 1 capsule by mouth daily at bedtime for 270 days. - flash glucose sensor (FREESTYLE LANCE 2 SENSOR) kit Use to check blood sugar before meals and at bedtime - insulin needles, DISPOSABLE, (PEN NEEDLE) 31 gauge x 5/16 Use one needle per dose. 1 per day. - Docusate Sodium (STOOL SOFTENER) 100 mg tab Take 1 capsule by mouth twice daily as needed - ergocalciferol 50,000 unit capsule (VITAMIN D2, DRISDOL) Take 1 capsule by mouth one time a week. - DULoxetine (CYMBALTA) 60 mg capsule Take 1 capsule by mouth once daily. - acetylcyst/btcbjgK71 /levomefol (METAFOLBIC PLUS ORAL) Take by mouth. - glyBURIDE 5 mg tablet Take 1 tablet by mouth daily with breakfast. - oxybutynin ER (DITROPAN XL) 15 mg 24 hr Extended Rel Tab Take 1 tablet by mouth once daily. - pantoprazole DR (PROTONIX) 40 mg tablet Take 1 tablet by mouth twice daily. - furosemide (LASIX) 40 mg tablet Take 1 tablet by mouth once daily. - cetirizine (ZYRTEC) 10 mg tablet Take 1 tablet by mouth once daily as needed (for itching, sneezing or runny nose). - losartan (COZAAR) 25 mg tablet (Discontinued) Take 1 tablet by mouth once daily. - Pramipexole 0.75 mg tablet Take 1 tablet by mouth daily at bedtime. - blood sugar diagnostic (Point Blank Range ULTRA TEST) test strip USE TO TEST BLOOD SUGAR THREE TIMES A DAY - aspirin, enteric coated (ECOTRIN LOW STRENGTH) 81 mg EC tablet Take 1 tablet by mouth once daily. - atorvastatin (LIPITOR) 10 mg tablet Take 1 tablet by mouth once daily. - spironolactone (ALDACTONE) 25 mg tablet Take 1 tablet by mouth once daily. - carvedilol (COREG) 25 mg tablet Take 1 tablet by mouth twice daily. - magnesium oxide (MAG-OX) 400 mg (241.3 mg magnesium) tablet Take 1 tablet by mouth twice daily. 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 Normal [facility] CNPNon 06-18-2023 [facility] Telephone ([facility]) MICHELLE JULES ([id number]) 1965 F Date Time Provider Department 06/18/23 HOMAR VASQUES [facility] During your visit today, we recorded the following information about you: Maria A Martinez 06/18/2023 10:40 AM Signed ----- Message from Delia Bright sent at 06/18/2023 10:09 AM EST ----- [address] [place] [address]/[facility]/Patient wants to schedule an appointment Subject Line Format: Medicine / Homar Vasques MD / [Issue] Select Department Name For Pool Routing Assistance: FAMP AG ACC CFM => AG [facility]AMP ACC CFM APPT CTR TRIAGE POOL [[id number]] ======= Patient: Michelle Jules Date of : 1965 Primary Care Provider: Homar Vasques MD The reason I am contacting the office is: Restricted Scheduling - Patient is requesting a call back from [facility] to schedule an appointment - follow up after 4 weeks. Patient missed their appt on 05/01/23 and they would like to reschedule. Please get in touch with them. Thank you! Person calling if other than patient: N/A Best contact number: [phone] Thank you, Delia Bright June 18, 2023 10:09 AM Maria A Martinez 06/18/2023 10:49 AM Signed Patient rescheduled for 07/03/23 with Pharm Maria A Allergies As of Date: 06/18/2023 Noted Allergy Reaction ADHESIVE TAPE (ROSINS) 03/27/2006 9 - Itching LATEX, NATURAL RUBBER 09/09/2018 2 - Rash METFORMIN 07/22/2018 14 - Other: See Comments Comments: Caused arrhythmia issues SEASONAL ALLERGIES 03/01/2023 9 - Itching SIMVASTATIN 11/04/2012 14 - Other: See Comments Comments: myalgia Date Reviewed: 05/20/2023 Reviewed by: Lilli See LPN - Fully Assessed Prescriptions as of 06/18/2023 - insulin glargine (BASAGLAR KWIKPEN U-100 INSULIN) 100 unit/mL (3 mL) Inject 45 Units subcutaneously two times a day. - insulin lispro (HUMALOG KWIKPEN) 100 unit/mL INJECT 8 UNITS SUBCUTANEOUSLY THREE TIMES A DAY BEFORE MEALS - gabapentin (NEURONTIN) 300 mg capsule Take 1 capsule by mouth daily at bedtime for 270 days. - liraglutide (VICTOZA) 0.6 mg/ 0.1 ml subcutaneous pen injector Inject 0.6 mg subcutaneously once daily. - flash glucose sensor (FREESTYLE LANCE 2 SENSOR) kit Use to check blood sugar before meals and at bedtime - insulin needles, DISPOSABLE, (PEN NEEDLE) 31 gauge x 5/16 Use one needle per dose. 1 per day. - Docusate Sodium (STOOL SOFTENER) 100 mg tab Take 1 capsule by mouth twice daily as needed - ergocalciferol 50,000 unit capsule (VITAMIN D2, DRISDOL) Take 1 capsule by mouth one time a week. - DULoxetine (CYMBALTA) 60 mg capsule Take 1 capsule by mouth once daily. - acetylcyst/olimwgA84 /levomefol (METAFOLBIC PLUS ORAL) Take by mouth. - glyBURIDE 5 mg tablet Take 1 tablet by mouth daily with breakfast. - oxybutynin ER (DITROPAN XL) 15 mg 24 hr Extended Rel Tab Take 1 tablet by mouth once daily. - pantoprazole DR (PROTONIX) 40 mg tablet Take 1 tablet by mouth twice daily. - furosemide (LASIX) 40 mg tablet Take 1 tablet by mouth once daily. - cetirizine (ZYRTEC) 10 mg tablet Take 1 tablet by mouth once daily as needed (for itching, sneezing or runny nose). - losartan (COZAAR) 25 mg tablet (Discontinued) Take 1 tablet by mouth once daily. - Pramipexole 0.75 mg tablet Take 1 tablet by mouth daily at bedtime. - blood sugar diagnostic (Point Blank Range ULTRA TEST) test strip USE TO TEST BLOOD SUGAR THREE TIMES A DAY - aspirin, enteric coated (ECOTRIN LOW STRENGTH) 81 mg EC tablet Take 1 tablet by mouth once daily. - atorvastatin (LIPITOR) 10 mg tablet Take 1 tablet by mouth once daily. - spironolactone (ALDACTONE) 25 mg tablet Take 1 tablet by mouth once daily. - carvedilol (COREG) 25 mg tablet Take 1 tablet by mouth twice daily. - magnesium oxide (MAG-OX) 400 mg (241.3 mg magnesium) tablet Take 1 tablet by mouth twice daily. 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 Normal [facility] CNPNon 06-17-2023 CNPN Telephone ([facility]) MICHELLE JULES ([id number]) 1965 F Date Time Provider Department 06/17/23 WILLIAMS RUBIN [facility] During your visit today, we recorded the following information about you: Williams Rubin MD 06/17/2023 6:31 PM Signed I called patient regarding fasting sugars staying at 300-400s She states: - She would like all meds sent to [facility] pharmacy - Ran out of long acting insulin. Was taking 40 units, and I recommended taking the 45 units. She does not have enough to take it tonight - I refilled long and short acting insulin - I recommended Increasing Victoza pen to 1.2 units and to call back to let me know where her sugars are this next week - States her CGM tape is not holding - Will contact [facility] Pharmacist Dr. Cr for her recommendation of medication and CGM use. - Will contact Dr. Vasques for recommendation of her medication for glucose control as well. MD [facility] 06/18/2023 2:15 PM Signed Appt with pharmD 07/03/2023. Patient no showed 05/01/2023; last with pharmD 04/03/2023. Hemoglobin A1C (POCT) Date Value Ref Range Status 05/20/2023 12.5 (A) 4.2 - 5.6 % Final Comment: Location:[facility] [place] [facility], [address] [place] [address], [facility] Point of care (POC) Hemoglobin A1c (HGBA1C) testing is intended to assess glucose control and provide a management tool for patients known to have diabetes and their healthcare providers. Target HGBA1C levels may depend on specific clinical circumstances. POC HGBA1C is not intended for use as a diagnostic or screening test; laboratory-based testing should be used for diagnostic purposes. The following information is supplemental and may not be applicable to specific diabetes management situations: The POC device sas bi developer provides a normal range of 4.2% to 6.5% for the HGBA1C POC test. However, the [place] [employer] guidelines indicate that patients with HGBA1C in the range of 5.7% to 6.4% are at increased risk for development of diabetes and that intervention by lifestyle modification may be beneficial. A HGBA1C level greater than or equal to 6.5% is considered diagnostic of diabetes, pending confirmatory testing. Use of HGBA1C testing to evaluate glucose control may not be appropriate for patients with hemoglobin variants or other conditions (e.g. anemia) that alter red blood cell lifespan. Increasing basal insulin likely will provide minimal benefit as >0.5 units/kg. Agree with assessment to increase victoza if patient is tolerating (order still active for 0.6 mg). Will also CC Jeanie Murphy for intake as patient would benefit from care coordination. If having issues with sensor adhesion could: 1) purchase tegaderm patches OTC from pharmacy or [facility] [employer] (insurance does not cover), 2) purchase skin-tac (skin super glue) to use for prior to sensor placement or 3) try different area of the body (such stomach if falling off arm). Can discuss further at upcoming appointment as well. Marcos Giron, Homar David MD 06/21/2023 5:37 PM Signed Agree w/Dr. Cr's comments. Please make sure to route to me and not Dr. Ginette Vasques in future. Thanks ;-) Allergies As of Date: 06/17/2023 Noted Allergy Reaction ADHESIVE TAPE (ROSINS) 03/27/2006 9 - Itching LATEX, NATURAL RUBBER 09/09/2018 2 - Rash METFORMIN 07/22/2018 14 - Other: See Comments Comments: Caused arrhythmia issues SEASONAL ALLERGIES 03/01/2023 9 - Itching SIMVASTATIN 11/04/2012 14 - Other: See Comments Comments: myalgia Date Reviewed: 05/20/2023 Reviewed by: Lilli See LPN - Fully Assessed Reason for Visit: Results [95] Primary Visit Diagnosis:Type 2 diabetes mellitus with diabetic neuropathy, with long-term current use of insulin ([facility]) [E11.40, Z79.4] Other Visit Diagnosis:Hyperglyce kennedy [R73.9] Order(s):insulin glargine (BASAGLAR KWIKPEN U-100 INSULIN) 100 unit/mL (3 mL)Inject 45 Units subcutaneously two times a day.Disp: 15 mLRfl: 1 insulin lispro (HUMALOG KWIKPEN) 100 unit/mLINJECT 8 UNITS SUBCUTANEOUSLY THREE TIMES A DAY BEFORE MEALSDisp: 15 mLRfl: 10 Prescriptions as of 06/26/2023 - liraglutide (VICTOZA) 0.6 mg/ 0.1 ml subcutaneous pen injector Inject 1.2 mg subcutaneously once daily. - insulin glargine (BASAGLAR KWIKPEN U-100 INSULIN) 100 unit/mL (3 mL) Inject 45 Units subcutaneously two times a day. - insulin lispro (HUMALOG KWIKPEN) 100 unit/mL INJECT 8 UNITS SUBCUTANEOUSLY THREE TIMES A DAY BEFORE MEALS - gabapentin (NEURONTIN) 300 mg capsule Take 1 capsule by mouth daily at bedtime for 270 days. - flash glucose sensor (FREESTYLE LANCE 2 SENSOR) kit Use to check blood sugar before meals and at bedtime - insulin needles, DISPOSABLE, (PEN NEEDLE) 31 gauge x 5/16 Use one needle per dose. 1 per day. - Docusate Sodium (STOOL SOFTENER) 100 mg tab Take 1 capsul (more content not included)... Normal [facility] MICHELLE JULES ([id number]) 1965 F Date Time Provider Department 06/14/23 WILLIAMS RUBIN [facility] During your visit today, we recorded the following information about you: Hossein Bagley LPN 06/14/2023 12:28 PM Signed Patient called in to report elevated blood sugars for about 3 weeks. States after victoza added sugars were stabilizing and are now back up in the 300-400 range daily. Patient has eliminated process foods, starchy veggies, has increased water and protein intake and is becoming frustrated. Patient denies any symptoms of infection at this time as well. Please advise Williams Rubin MD 06/17/2023 6:32 PM Signed Addressed in separate phone encounter. Thank you for notifying me! RIAZ Nina Jacqueline 06/18/2023 9:55 AM Signed Left VM with patient to call us and schedule with Dr. Cr for diabetic management. Keshia Johnson 06/19/2023 10:46 AM Signed Patient called back yesterday and is scheduled with Dr. Cr for 07/03/23. Williams Springer MD 06/19/2023 10:50 AM Signed Thank you so much for getting her scheduled! Williams Rubin MD Allergies As of Date: 06/14/2023 Noted Allergy Reaction ADHESIVE TAPE (ROSINS) 03/27/2006 9 - Itching LATEX, NATURAL RUBBER 09/09/2018 2 - Rash METFORMIN 07/22/2018 14 - Other: See Comments Comments: Caused arrhythmia issues SEASONAL ALLERGIES 03/01/2023 9 - Itching SIMVASTATIN 11/04/2012 14 - Other: See Comments Comments: myalgia Date Reviewed: 05/20/2023 Reviewed by: Lilli See LPN - Fully Assessed Reason for Visit: Patient Update [1234] Prescriptions as of 06/19/2023 - insulin glargine (BASAGLAR KWIKPEN U-100 INSULIN) 100 unit/mL (3 mL) Inject 45 Units subcutaneously two times a day. - insulin lispro (HUMALOG KWIKPEN) 100 unit/mL INJECT 8 UNITS SUBCUTANEOUSLY THREE TIMES A DAY BEFORE MEALS - gabapentin (NEURONTIN) 300 mg capsule Take 1 capsule by mouth daily at bedtime for 270 days. - liraglutide (VICTOZA) 0.6 mg/ 0.1 ml subcutaneous pen injector Inject 0.6 mg subcutaneously once daily. - flash glucose sensor (FREESTYLE LANCE 2 SENSOR) kit Use to check blood sugar before meals and at bedtime - insulin needles, DISPOSABLE, (PEN NEEDLE) 31 gauge x 16 Use one needle per dose. 1 per day. - Docusate Sodium (STOOL SOFTENER) 100 mg tab Take 1 capsule by mouth twice daily as needed - ergocalciferol 50,000 unit capsule (VITAMIN D2, DRISDOL) Take 1 capsule by mouth one time a week. - DULoxetine (CYMBALTA) 60 mg capsule Take 1 capsule by mouth once daily. - acetylcyst/vsxijmF90 /levomefol (METAFOLBIC PLUS ORAL) Take by mouth. - glyBURIDE 5 mg tablet Take 1 tablet by mouth daily with breakfast. - oxybutynin ER (DITROPAN XL) 15 mg 24 hr Extended Rel Tab Take 1 tablet by mouth once daily. - pantoprazole DR (PROTONIX) 40 mg tablet Take 1 tablet by mouth twice daily. - furosemide (LASIX) 40 mg tablet Take 1 tablet by mouth once daily. - cetirizine (ZYRTEC) 10 mg tablet Take 1 tablet by mouth once daily as needed (for itching, sneezing or runny nose). - losartan (COZAAR) 25 mg tablet (Discontinued) Take 1 tablet by mouth once daily. - Pramipexole 0.75 mg tablet Take 1 tablet by mouth daily at bedtime. - blood sugar diagnostic (Point Blank Range ULTRA TEST) test strip USE TO TEST BLOOD SUGAR THREE TIMES A DAY - aspirin, enteric coated (ECOTRIN LOW STRENGTH) 81 mg EC tablet Take 1 tablet by mouth once daily. - atorvastatin (LIPITOR) 10 mg tablet Take 1 tablet by mouth once daily. - spironolactone (ALDACTONE) 25 mg tablet Take 1 tablet by mouth once daily. - carvedilol (COREG) 25 mg tablet Take 1 tablet by mouth twice daily. - magnesium oxide (MAG-OX) 400 mg (241.3 mg magnesium) tablet Take 1 tablet by mouth twice daily. 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.* Vitamin D deficiency [E55.9] Family history of colon cancer [Z80.0] Cardiomyopathy, nonischemic (HCC) [I42.8] 04/14/2013 Abnormality of gait [R26.9] 05/04/2014 Ganglion cyst of right foot [M67.471] 09/09/2015 Biventricular ICD (implantable cardioverter-def* Uncontrolled type 2 diabetes mellitus with diab*12/21/2015 Restless leg syndrome [G25.81] 02/09/2016 Peroneal tendinitis [M76.70] 07/12/2016 Pain in joint, ankle and foot [M25.579] 07/12/2016 Nonallergic rhinitis [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 Normal [facility] ([facility]) MICHELLE JULES ([id number]) 1965 F Date Time Provider Department 05/24/23 WILLI[facility] RUBIN [facility] During your visit today, we recorded the following information about you: Reema Shearer LPN 05/24/2023 1:48 PM Signed Pt is having her blood sugars drop lower than normal with the 49-69 range and wants to know what she should do. I told her Id reach out because she need may need a cut off on when Not to provide herself her short acting. Williams Rubin MD 05/24/2023 3:55 PM Signed Spoke to Michelle Jules to address Hypoglycemia: - Has been taking Basaglar 45 units once am and before bedtime and Humalog 8 units 3x - Started Victoza on 05/22/23 - Woke up with hypoglycemic symptoms of feeling shaky and glucose reading of 69 this am. - Recommended to reduce bedtime Basaglar dose by 10% to 40 units and to call me if she get's hypoglycemic again. Williams Rubin MD Allergies As of Date: 05/24/2023 Noted Allergy Reaction ADHESIVE TAPE (ROSINS) 03/27/2006 9 - Itching LATEX, NATURAL RUBBER 09/09/2018 2 - Rash METFORMIN 07/22/2018 14 - Other: See Comments Comments: Caused arrhythmia issues SEASONAL ALLERGIES 03/01/2023 9 - Itching SIMVASTATIN 11/04/2012 14 - Other: See Comments Comments: myalgia Date Reviewed: 05/20/2023 Reviewed by: Lilli See LPN - Fully Assessed Reason for Visit: Medication Problem [65] Prescriptions as of 05/24/2023 - liraglutide (VICTOZA) 0.6 mg/ 0.1 ml subcutaneous pen injector Inject 0.6 mg subcutaneously once daily. - flash glucose sensor (FREESTYLE LANCE 2 SENSOR) kit Use to check blood sugar before meals and at bedtime - insulin needles, DISPOSABLE, (PEN NEEDLE) 31 gauge x 5/16 Use one needle per dose. 1 per day. - insulin lispro (HUMALOG KWIKPEN) 100 unit/mL INJECT 8 UNITS SUBCUTANEOUSLY THREE TIMES A DAY BEFORE MEALS - Docusate Sodium (STOOL SOFTENER) 100 mg tab Take 1 capsule by mouth twice daily as needed - ergocalciferol 50,000 unit capsule (VITAMIN D2, DRISDOL) Take 1 capsule by mouth one time a week. - insulin glargine (BASAGLAR KWIKPEN U-100 INSULIN) 100 unit/mL (3 mL) Inject 45 Units subcutaneously twice daily. - DULoxetine (CYMBALTA) 60 mg capsule Take 1 capsule by mouth once daily. - acetylcyst/gakhkbU54 /levomefol (METAFOLBIC PLUS ORAL) Take by mouth. - glyBURIDE 5 mg tablet Take 1 tablet by mouth daily with breakfast. - oxybutynin ER (DITROPAN XL) 15 mg 24 hr Extended Rel Tab Take 1 tablet by mouth once daily. - pantoprazole DR (PROTONIX) 40 mg tablet Take 1 tablet by mouth twice daily. - furosemide (LASIX) 40 mg tablet Take 1 tablet by mouth once daily. - cetirizine (ZYRTEC) 10 mg tablet Take 1 tablet by mouth once daily as needed (for itching, sneezing or runny nose). - gabapentin (NEURONTIN) 300 mg capsule Take 1 capsule by mouth daily at bedtime for 90 days. - losartan (COZAAR) 25 mg tablet (Discontinued) Take 1 tablet by mouth once daily. - Pramipexole 0.75 mg tablet Take 1 tablet by mouth daily at bedtime. - blood sugar diagnostic (Point Blank Range ULTRA TEST) test strip USE TO TEST BLOOD SUGAR THREE TIMES A DAY - aspirin, enteric coated (ECOTRIN LOW STRENGTH) 81 mg EC tablet Take 1 tablet by mouth once daily. - atorvastatin (LIPITOR) 10 mg tablet Take 1 tablet by mouth once daily. - spironolactone (ALDACTONE) 25 mg tablet Take 1 tablet by mouth once daily. - carvedilol (COREG) 25 mg tablet Take 1 tablet by mouth twice daily. - magnesium oxide (MAG-OX) 400 mg (241.3 mg magnesium) tablet Take 1 tablet by mouth twice daily. 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.* Vitamin D deficiency [E55.9] Family history of colon cancer [Z80.0] Cardiomyopathy, nonischemic (HCC) [I42.8] 04/14/2013 Abnormality of gait [R26.9] 05/04/2014 Ganglion cyst of right foot [M67.471] 09/09/2015 Biventricular ICD (implantable cardioverter-def* Uncontrolled type 2 diabetes mellitus with diab*12/21/2015 Restless leg syndrome [G25.81] 02/09/2016 Peroneal tendinitis [M76.70] 07/12/2016 Pain in joint, ankle and foot [M25.579] 07/12/2016 Nonallergic rhinitis [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 CNOVon 05-20-2023 CNOV Office Visit ([facility]) MICHELLE JULES ([id number]) 1965 F Date Time Provider Department 05/20/23 1:20 PM [facility] RUBIN [facility] During your visit today, we recorded the following information about you: Temperature Pulse Respiration Blood pressure 97 degrees 69/minute 18/minute 127/76 Weight Height 110 kg 1.753 m Williams Rubin MD 05/21/2023 3:58 PM Signed [facility] / [address] [place] [address] Visit Date: May 19, 2023 Name: Michelle Jules Date of : 1965 MRN/E #: [id number] Subjective Patient is a 57 year old year old female presenting in the office today with the following: Diabetes Mellitis Follow-up - Ozempic denied Coverage is provided when the member has a history of at least 120 days of therapy with THREE preferred (medication covered by the Plan) medications [ONE of the 120 day trials must be Byetta (5 mcg and 10 mcg) , Victoza (18 mg/3 ml pen) or Trulicity (0.75mg, 1.5 mg, 3 mg and 4.5 mg)], which include but are not limited to : Farxiga 5 and 10 mg, Invokana 100 mg and 300 mg, Victoza 18 mg/3 ml pen, and Jardiance 10 and 25 mg. Coverage is provided when the member has had an inadequate clinical response (the inability to reach A1C goal (<7%) (a test result that shows a three-month average of blood sugars) after at least 120 days of current regimen with documented adherence (taking medications correctly) and appropriate dose escalation. - Recently got diabetic eye exam and it resulted normal - A1c today was 12.5 in office - Wearing Lance; needs refill - Needs insulin needle refill DIABETES FOLLOW UP Type of Diabetes: Type 2 (NIDDM) Medical Issues / Complications: hypertension, hyperlipidemia, and peripheral neuropathy Patient is testing home BG 3-4 times per day: Yes Home readings in the <200 range. Patient's last HgbA1C: Hemoglobin A1C (%) Date Value 02/23/2019 6.8 11/12/2018 7.9 Hemoglobin A1C (POCT) (%) Date Value 05/20/2023 12.5 01/22/2023 14.7 Symptoms of Hyperglycemia : Polyuria Polydipsia Symptoms of Hypoglycemia: None - Banana once a day, cutting back on bread, pop corn, salads - Once/week exercising. Caregiver for [id number] Inadequate control of diabetes despite documented complaint with multiple medication adjustments: Yes Insulin Therapy: Yes Diabetes Medications: Orals AND Insulin How often is the patient administering insulin: 5 times a day Patient is able to adjust Insulin with a sliding scale: Yes Diabetes Management: Recommend patient have: Self foot care, Foot exam, Dilated eye exam, Hemoglobin A1c, Lipids, Urine microalbumin, and Hemaglobin A1C The 10-year ASCVD risk score (Brenda REBOLLEDO, et al., 2019) is: 6.8% Values used to calculate the score: Age: 57 years Sex: Female Is Non- : No Diabetic: Yes Tobacco smoker: No Systolic Blood Pressure: 127 mmHg Is BP treated: Yes HDL Cholesterol: 38 mg/dL Total Cholesterol: 177 mg/dL Health maintenance Hepatitis B Vaccine(1 of 3 - 3-dose series) Never done Mammogram Screening due on 12/03/2018 Colorectal Cancer Screening due on 09/27/2021 Covid-19 Vaccine( season) due on 03/15/2023 - Agreed to order Mammogram and Colonoscopy -ROS negative other than stated in HPI. -I have confirmed and edited as necessary the chief complaint, medications, past medical, family and social histories. Part of this note has been created using voice recognition software. It may contain errors which are inherent in voice-recognition technology. Objective Vital Signs BP 127/76 Pulse 69 Temp 36.1 ?C (97 ?F) (Temporal) Resp 18 Ht 5' 9 (1.753 m) Wt 242 lb 6.4 oz (110 kg) SpO2 95% BMI 35.80 kg/m? Last 3 Encounter BP Readings: Date: BP: 03/29/2023 134/77 03/15/2023 130/75 03/01/2023 132/72 Last 3 Encounter Wt Readings: Date: Wt: 04/03/2023 243 lb (110.2 kg) 03/29/2023 242 lb (109.8 kg) 03/15/2023 242 lb (109.8 kg) Physical Exam Physical Exam Vitals reviewed. Constitutional: General: She is not in acute distress. Appearance: Normal appearance. She is not ill-appearing. HENT: Head: Normocephalic and atraumatic. Nose: No congestion. Mouth/Throat: Mouth: Mucous membranes are moist. Eyes: Extraocular Movements: Extraocular movements intact. Cardiovascular: Rate and Rhythm: Normal rate and regular rhythm. Heart sounds: Normal heart sounds. No murmur heard. Pulmonary: Effort: Pulmonary effort is normal. No respiratory distress. Breath sounds: No wheezing, rhonchi or rales. Abdominal: General: There is no distension. Palpations: Abdomen is soft. There is no mass. Tenderness: There is no abdominal tenderness. There is no guarding. Hernia: No hernia is present. (more content not included)... Normal [facility] ICD CLINIC CHECKon 3 AV Delay Adaptive Paced Minimum (ms) 150 ms [facility] AV Delay Adaptive Sensed Minimum (ms) 130 ms [facility] AV Delay Paced (ms) 100 ms [facility] AV Delay Sensed (ms) 85 ms [facility] Carlos Alberto LV Pacing Amplitude (volts) 2.5 V [facility] Carlos Alberto LV Pacing Pulse Width (ms) 1.0 ms [facility] carlos alberto LV Sensing Amplitude (mvolts) 1.0 mV [facility] Carlos Alberto RA Pacing Amplitude (volts) 2.0 V [facility] Carlos Alberto RA Pacing Polarity BI [facility] Carlos Alberto RA Pacing Pulse Width (ms) 0.4 ms [facility] Carlos Alberto RA Sensing Amplitude (mvolts) 0.25 mV [facility] Carlos Alberto RA Sensing Polarity BI [facility] Carlos Alberto RV Pacing Amplitude (volts) 2.0 V [facility] Carlos Alberto RV Pacing Polarity BI [facility] Carlos Alberto RV Pacing Pulse Width (ms) 0.4 ms [facility] Carlos Alberto RV Sensing Amplitude (mvolts) 0.6 mV [facility] Carlos Alberto RV Sensing Polarity BI [facility] Detection Configuration (Vent) 2 - Zone [facility] FastVT_Detection Interval 333 ms [facility] FastVT_Therapy Configuration 2 ATP(s) + 6 Shock(s) [facility] ICD FastVT DetectionStatus ENABLED [facility] ICD-AMS EPISODES 170 {beats}/min [facility] ICD-ATP Episodes (Vent) 0 C [facility] ICD-ATRIALFIBRILLATION [address] [facility] ICD-Device Mfg BSX [facility] ICD-LEADIMPEDANCEATRIAL 510 ohm [facility] ICD-Percent Pacing (Atrial) 8 % [facility] ICD-Percent Pacing (Vent) 100 % [facility] ICD-Rhythm /VS @ 47 bpm [facility] ICD-Shocks Aborted (Vent) 0 [facility] UFM-RSRIEJ-PVIDHIVIM 0 [facility] ICD-SHOCKSABORTED 0 [facility] ICD-SHOCKSDELIVEREDVENT RICULAR 0 [facility] ICD-Ventricular Fibrillation 0 [facility] ICD-VVDELAY_MS 20 ms [facility] Implant Date 03/12/2018 [facility] Lead Impedance (LV) 738 ohm [facility] Lead Impedance (RV) 475 ohm [facility] Lead Impedance High Voltage 78 ohm [facility] Lead1 Mfg [employer] [facility] Lead2 Mfg Guidant [facility] Lead3 Mfg Guidant [facility] Location RA [facility] Location LV [facility] Location RV [facility] Lower Rate (bpm) 50 {beats}/min [facility] LV PACING % 100 % [facility] Max Sensor Rate (bpm) 130 {beats}/min [facility] MDT_PROG_TACHY_ZONE_DET ECTIONS_STATUS ENABLED [facility] Model G150 DYNAGEN SCRUBBER SYSTEM ATTENDANT-D [facility] Model 0292 [employer] 4-Site SG [facility] Model 4135 Dextrus [facility] Model 4542 EasyTrak 2 IS-1, 80 cm [facility] Pacemaker Dependent? NO [facility] Pacing Mode DDDR [facility] Serial Number [id number] [facility] Serial Number [id number] [facility] Serial Number [id number] [facility] Serial Number [id number] [facility] Test Charge Energy 21 J [facility] Test Charge Time 11.0 s [facility] Therapy Status (Vent) Enabled [facility] Thresh LV Capture Amplitude (volts) 1.5 V [facility] Thresh LV Capture Duration (ms) 1.0 ms [facility] Thresh RA Capture Amplitude (volts) 0.5 V [facility] Thresh RA Capture Duration (ms) 0.4 ms [facility] Thresh RV Capture Amplitude (VOLTS) 0.7 V [facility] Thresh RV Capture Duration (MS) 0.4 ms [facility] Tracking Rate (bpm) 130 {beats}/min [facility] VF Zone Detection Interval 333 ms [facility] VF Zone Therapy Configuration 2 ATP(s) + 6 Shock(s) [facility] No Panel Informationon 04-03 BLANK _ [facility] ICD-Fast Ventricular Tachycardia 0 [facility] Implant Date 09/03/2013 [facility] ALBUMIN/CREAT RATIO RND URon 01-25-2023 Albumin DL <= 20 mg/L (U) [Mass/Vol] 12.7 mg/L Normal [facility] Comment on above: Order Comment: Speci men Type: URINE SPECIMEN Ordering Facility: [facility] Address: [address] [id number] Performed By: #### U ACR #### [facility] CLIA [id number] [address] [place] [address] [place] Albumin/Creatinine (U) [Mass ratio] 7 mg/g Normal <30 [facility] Comment on above: Order Comment: Speci men Type: URINE SPECIMEN Ordering Facility: [facility] Address: [address] [phone] Result Comment: Adul t Male and Female Nephrotic Criteria: <30 mg/g is considered normal to mildly increased 30-300 mg/g is considered moderately increased >300 mg/g is considered severely increased KDIGO. (2013). KDIGO 2012 Clinical Practice Guideline for the Evaluation and Management of Chronic Kidney Disease. Official Journal of the International Society of Nephrology, 3(1), 1-150. Performed By: #### U ACR #### [facility] CLIA [id number] [address] [place] [address] [place] Creatinine (U) [Mass/Vol] 188.3 mg/dL Normal 20.0-300.0 [facility] Comment on above: Order Comment: Speci men Type: URINE SPECIMEN Ordering Facility: [facility] Address: [address] [place] [address] Performed By: #### U ACR #### [facility] CLIA [id number] [address] [place] [address] [place] CBC W Auto Differential pane l (Bld)on 01-25-2023 Basophils (Bld) [#/Vol] 0.03 10*3/uL Normal <0.11 [facility] Comment on above: Order Comment: Speci men Type: BLOOD SPECIMEN Ordering Facility: [facility] Address: [address] [place] [address] Performed By: #### 5 7021-8 #### [facility] CLIA [id number] [address] [place] [address] [place] Basophils/100 WBC (Bld) 0.5 % Normal [facility] Comment on above: Order Comment: Speci men Type: BLOOD SPECIMEN Ordering Facility: [facility] Address: [address] [place] [address] Performed By: #### 5 7021-8 #### [facility] CLIA [id number] [address] [place] [address] [place] Differential cell count method Nom (Bld) Auto Normal [facility] Comment on above: Order Comment: Speci men Type: BLOOD SPECIMEN Ordering Facility: [facility] Address: [address] [address] Performed By: #### 5 7021-8 #### [facility] CLIA [id number] [address] [place] [address] [place] Eosinophils (Bld) [#/Vol] 0.09 10*3/uL Normal <0.46 [facility] Comment on above: Order Comment: Speci men Type: BLOOD SPECIMEN Ordering Facility: [facility] Address: [address] [address] Performed By: #### 5 7021-8 #### [facility] CLIA [id number] [address] [place] [address] [place] Eosinophils/100 WBC (Bld) 1.5 % Normal [facility] Comment on above: Order Comment: Speci men Type: BLOOD SPECIMEN Ordering Facility: [facility] Address: [address] [address] Performed By: #### 5 7021-8 #### [facility] CLIA [id number] [address] [place] [address] [place] Erythrocyte distribution width (RBC) [Ratio] 14.2 % Normal 11.5-15.0 [facility] Comment on above: Order Comment: Speci men Type: BLOOD SPECIMEN Ordering Facility: [facility] Address: [address] Performed By: #### 5 7021-8 #### [facility] CLIA [id number] [address] [place] [address] [place] Hematocrit (Bld) [Volume fraction] 38.3 % Normal 36.0-46.0 [facility] Comment on above: Order Comment: Speci men Type: BLOOD SPECIMEN Ordering Facility: [facility] Address: [address] Performed By: #### 5 7021-8 #### [facility] CLIA [id number] [address] [place] [address] [place] Hemoglobin (Bld) [Mass/Vol] 12.9 g/dL Normal 11.5-15.5 [facility] Comment on above: Order Comment: Speci men Type: BLOOD SPECIMEN Ordering Facility: [facility] Address: [address] [place], [place] [address] Performed By: #### 5 7021-8 #### [facility] CLIA [id number] [address] [place] [address] [place] Immature granulocytes (Bld) [#/Vol] 0.03 10*3/uL Normal <0.10 [facility] Comment on above: Order Comment: Speci men Type: BLOOD SPECIMEN Ordering Facility: [facility] Address: [address] [place], [place] [address] Performed By: #### 5 7021-8 #### [facility] CLIA [id number] [address] [place] [address] [place] Immature granulocytes/100 WBC (Bld) 0.5 % Normal [facility] Comment on above: Order Comment: Speci men Type: BLOOD SPECIMEN Ordering Facility: [facility] Address: [address] [place], [place] [address] Performed By: #### 5 7021-8 #### [facility] CLIA [id number] [address] [place] [address] [place] Lymphocytes (Bld) [#/Vol] 1.65 10*3/uL Normal 1.00-4.00 [facility] Comment on above: Order Comment: Speci men Type: BLOOD SPECIMEN Ordering Facility: [facility] Address: [address] [place], [place] [address] Performed By: #### 5 7021-8 #### [facility] CLIA [id number] [address] [place] [address] [place] Lymphocytes/100 WBC (Bld) 28.2 % Normal [facility] Comment on above: Order Comment: Speci men Type: BLOOD SPECIMEN Ordering Facility: [facility] Address: [address] [place] [address] Performed By: #### 5 7021-8 #### [facility] CLIA [id number] [address] [place] [address] [place] MCH (RBC) [Entitic mass] 29.1 pg Normal 26.0-34.0 [facility] Comment on above: Order Comment: Speci men Type: BLOOD SPECIMEN Ordering Facility: [facility] Address: [address] [place] [address] Performed By: #### 5 7021-8 #### [facility] CLIA [id number] [address] [place] [address] [place] MCHC (RBC) [Mass/Vol] 33.7 g/dL Normal 30.5-36.0 [facility] Comment on above: Order Comment: Speci men Type: BLOOD SPECIMEN Ordering Facility: [facility] Address: [address] [place] [address] Performed By: #### 5 7021-8 #### [facility] CLIA [id number] [address] [place] [address] [place] MCV (RBC) [Entitic vol] 86.5 fL Normal 80.0-100.0 C [facility] Comment on above: Order Comment: Speci men Type: BLOOD SPECIMEN Ordering Facility: [facility] Address: [address] [place] [address] Performed By: #### 5 7021-8 #### [facility] CLIA [id number] [address] [place] [address] [place] Monocytes (Bld) [#/Vol] 0.43 10*3/uL Normal <0.87 [facility] Comment on above: Order Comment: Speci men Type: BLOOD SPECIMEN Ordering Facility: [facility] Address: [address] Performed By: #### 5 7021-8 #### [facility] CLIA [id number] [address] [place] [address] [place] Monocytes/100 WBC (Bld) 7.4 % Normal [facility] Comment on above: Order Comment: Speci men Type: BLOOD SPECIMEN Ordering Facility: [facility] Address: [address] Performed By: #### 5 7021-8 #### [facility] CLIA [id number] [address] [place] [address] [place] Neutrophils (Bld) [#/Vol] 3.62 10*3/uL Normal 1.45-7.50 [facility] Comment on above: Order Comment: Speci men Type: BLOOD SPECIMEN Ordering Facility: [facility] Address: [address] Performed By: #### 5 7021-8 #### [facility] CLIA [id number] [address] [place] [address] [place] Neutrophils/100 WBC (Bld) 61.9 % Normal [facility] Comment on above: Order Comment: Speci men Type: BLOOD SPECIMEN Ordering Facility: [facility] Address: [address] Performed By: #### 5 7021-8 #### [facility] CLIA [id number] [address] [place] [address] [place] Nucleated RBC (Bld) [#/Vol] 10*3/uL Normal <0.01 [facility] Comment on above: Order Comment: Speci men Type: BLOOD SPECIMEN Ordering Facility: [facility] Address: [address] Performed By: #### 5 7021-8 #### [facility] CLIA [id number] [address] [place] [address] [place] Nucleated RBC/100 WBC (Bld) [Ratio] 0.0 /100 WBC Normal [facility] Comment on above: Order Comment: Speci men Type: BLOOD SPECIMEN Ordering Facility: [facility] Address: [address] [place] [address] Performed By: #### 5 7021-8 #### [facility] CLIA [id number] [address] [place] [address] [place] Platelet mean volume (Bld) [Entitic vol] 10.4 fL Normal 9.0-12.7 [facility] Comment on above: Order Comment: Speci men Type: BLOOD SPECIMEN Ordering Facility: [facility] Address: [address] [place] [address] Performed By: #### 5 7021-8 #### [facility] CLIA [id number] [address] [place] [address] [place] Platelets (Bld) [#/Vol] 150 10*3/uL Normal 150-400 [facility] Comment on above: Order Comment: Speci men Type: BLOOD SPECIMEN Ordering Facility: [facility] Address: [address] [place] [address] Performed By: #### 5 7021-8 #### [facility] CLIA [id number] [address] [place] [address] [place] RBC (Bld) [#/Vol] 4.43 10*6/uL Normal 3.90-5.20 [facility] Comment on above: Order Comment: Speci men Type: BLOOD SPECIMEN Ordering Facility: [facility] Address: [address] [place] [address] Performed By: #### 5 7021-8 #### [facility] CLIA [id number] [address] [place] [address] [place] WBC (Bld) [#/Vol] 5.85 10*3/uL Normal 3.70-11.00 [facility] Comment on above: Order Comment: Speci men Type: BLOOD SPECIMEN Ordering Facility: [facility] Address: [address] [place] [address] Performed By: #### 5 7021-8 #### [facility] CLIA [id number] [address] [place] [address] [place] Comprehensive metabolic 2000 panelon 01-25-2023 Albumin [Mass/Vol] 4.0 g/dL Normal 3.9-4.9 [facility] Comment on above: Order Comment: Speci men Type: BLOOD SPECIMEN Ordering Facility: [facility] Address: [address] [place] [address] Performed By: #### 2 4323-8, 61985-7 #### [facility] CLIA [id number] [address] [place] [address] [place] ALP [Catalytic activity/Vol] 205 U/L High 34-123 [facility] Comment on above: Order Comment: Speci men Type: BLOOD SPECIMEN Ordering Facility: [facility] Address: [address] [place] [address] Performed By: #### 2 4323-8, 79818-2 #### [facility] CLIA [id number] [address] [place] [address] [place] ALT [Catalytic activity/Vol] 23 U/L Normal 7-38 [facility] Comment on above: Order Comment: Speci men Type: BLOOD SPECIMEN Ordering Facility: [facility] Address: [address] [place] [address] Performed By: #### 2 4323-8, 71976-6 #### [facility] CLIA [id number] [address] [place] [address] [place] Anion gap [Moles/Vol] 9 mmol/L Normal 9-18 [facility] Comment on above: Order Comment: Speci men Type: BLOOD SPECIMEN Ordering Facility: [facility] Address: [address] [address] Performed By: #### 2 4323-8, #### [facility] CLIA [id number] [address] [place] [address] [place] AST [Catalytic activity/Vol] 16 U/L Normal 13-35 [facility] Comment on above: Order Comment: Speci men Type: BLOOD SPECIMEN Ordering Facility: [facility] Address: [address] [address] Performed By: #### 2 4323-8, #### [facility] CLIA [id number] [address] [place] [address] [place] Bilirubin [Mass/Vol] 0.3 mg/dL Normal 0.2-1.[address] [facility] Comment on above: Order Comment: Speci men Type: BLOOD SPECIMEN Ordering Facility: [facility] Address: [address] [address] Performed By: #### 2 4323-8, #### [facility] CLIA [id number] [address] [place] [address] [place] Calcium [Mass/Vol] 9.4 mg/dL Normal 8.5-10.2 [facility] Comment on above: Order Comment: Speci men Type: BLOOD SPECIMEN Ordering Facility: [facility] Address: [address] [address] Performed By: #### 2 4323-8, #### [facility] CLIA [id number] [address] [place] [address] [place] Chloride [Moles/Vol] 103 mmol/L Normal 97-[address] [facility] Comment on above: Order Comment: Speci men Type: BLOOD SPECIMEN Ordering Facility: [facility] Address: [address] Performed By: #### 2 4323-8, 26471-0 #### [facility] CLIA [id number] [address] [place] [address] [place] CO2 [Moles/Vol] 25 mmol/L Normal 22-30 [facility] Comment on above: Order Comment: Speci men Type: BLOOD SPECIMEN Ordering Facility: [facility] Address: [address] [address] Performed By: #### 2 4323-8, #### [facility] CLIA [id number] [address] [place] [address] [place] Creatinine [Mass/Vol] 0.64 mg/dL Normal 0.58-0.96 [facility] Comment on above: Order Comment: Speci men Type: BLOOD SPECIMEN Ordering Facility: [facility] Address: [address] [place] [address] Performed By: #### 2 4323-8, #### [id number] [address] [place] [address] OF [place] ESTIMATED GLOMERULAR FILTRATION RATE 104 mL/min/1.73m??? Normal >=60 [facility] Comment on above: Order Comment: Speci men Type: BLOOD SPECIMEN Ordering Facility: [facility] Address: [address] [place] [address] Result Comment: Mayra mated Glomerular Filtration Rate (eGFR) is calculated using the 2020 CKD-EPI creatinine equation. This equation utilizes serum creatinine, sex, and age as parameters. The creatinine assay has traceable calibration to isotope dilution-mass spectrometry. Refer to KDIGO guidelines for clinical interpretation. In patients with unstable renal function, e.g. those with acute kidney injury, the eGFR may not accurately reflect actual GFR. Performed By: #### 2 4323-8, #### [facility] CLIA [id number] [address] [place] [address] [place] Glucose [Mass/Vol] 304 mg/dL High 74-99 [facility] [facility] [place] Comment on above: Order Comment: Specsharon men Type: BLOOD SPECIMEN Ordering Facility: [facility] Address: [place] [address] Result Comment: The [place] Diabetes [employer] (ADA) provides guidance for cutoff values for fasting glucose and random glucose. The ADA defines fasting as no caloric intake for at least 8 hours. Fasting plasma glucose results between 100 to 125 [...] Standards of Medical Care in Diabetes 2016, [place] [employer]. Diabetes Care. 2016.39(Suppl 1). Performed By: #### 2 4323-8, #### [facility] CLIA [id number] [address] [place] [address] [place] Potassium [Moles/Vol] 4.2 mmol/L Normal 3.7-5.1 [facility] Comment on above: Order Comment: Maty javed Type: BLOOD SPECIMEN Ordering Facility: [facility] Address: [address] Performed By: #### 2 4323-8, #### [facility] CLIA [id number] [address] [place] [address] [place] Protein [Mass/Vol] 7.0 g/dL Normal 6.3-8.0 [facility] [place] Comment on above: Order Comment: Maty javed Type: BLOOD SPECIMEN Ordering Facility: [facility] Address: [place] [place] [address] Performed By: #### 2 4323-8, #### [facility] CLIA [id number] [address] [place] [address] [place] Sodium [Moles/Vol] 137 mmol/L Normal 136-144 [facility] [place] Comment on above: Order Comment: Speci men Type: BLOOD SPECIMEN Ordering Facility: [facility] Address: [address] [place] [address] Performed By: #### 2 4323-8, 27186-1 #### [facility] CLIA [id number] [address] [place] [address] [place] Urea nitrogen [Mass/Vol] 13 mg/dL Normal 7-21 [facility] Comment on above: Order Comment: Speci men Type: BLOOD SPECIMEN Ordering Facility: [facility] Address: [address] [place] [address] Performed By: #### 2 4323-8, 79469-9 #### [facility] CLIA [id number] [address] [place] [address] [place] HIV 1+2 Ab IA Qlon 3 HIV 1 and 2 Ab IA.rapid Nom Normal [facility] Comment on above: Order Comment: Speci men Type: BLOOD SPECIMEN Ordering Facility: [facility] Address: [address] [place] [address] Result Comment: Test not indicated. Performed By: #### 3 1201-7 #### [facility] CLIA [id number] [address] [place] [address] [place] HIV 1+2 Ab+HIV1 p24 Ag IA Ql Non-Reactive Normal Nonreactive [facility] Comment on above: Order Comment: Speci men Type: BLOOD SPECIMEN Ordering Facility: [facility] Address: [address] [place] [address] Performed By: #### 3 1201-7 #### [facility] CLIA [id number] [address] [place] [address] [place] HIVINT Normal [facility] Comment on above: Order Comment: Speci men Type: BLOOD SPECIMEN Ordering Facility: [facility] Address: [place] [address] Result Comment: No e vidence of HIV-1 or HIV-2 infection. Should recent infection be suspected, repeat testing may be considered 2-3 weeks after this draw. [place] Rev. Code 3701.243(E): This information has been disclosed to you from confidential records protected from disclosure by state law. ???You shall make no further disclosure of this information without the specific, written, and informed release of the individual to whom it pertains or as otherwise permitted by state law. A general authorization for the release of medical or other information is not sufficient for the purpose of the release of HIV test results or diagnoses. Performed By: #### 3 1201-7 #### [facility] CLIA [id number] [address] [place] [address] [place] Lipid 1996 panelon 3 Cholesterol [Mass/Vol] 177 mg/dL Normal <200 [facility] Comment on above: Order Comment: Speci [facility] Type: BLOOD SPECIMEN Ordering Facility: [facility] Address: [place] [address] Result Comment: <200 mg/dL, Desirable 200-239 mg/dL, Borderline high >239 mg/dL, High Performed By: #### 3 016-3, 3024-7 #### [facility] CLIA [id number] [address] [place] [address] [place] #### 41069-4 #### [facility] CLIA [id number] [address] [place] [address] [place] [facility] CLIA [id number] [address] [place] [address] [place] Cholesterol in HDL [Mass/Vol] 38 mg/dL Low >39 [facility] Comment on above: Order Comment: Speci men Type: BLOOD SPECIMEN Ordering Facility: [facility] Address: [place] [address] Result Comment: 40-5 9 mg/dL, Acceptable >59 mg/dL, High: Negative risk factor for coronary heart disease <40 mg/dL, Low: Positive risk factor for coronary heart disease Performed By: #### 3 016-3, 3024-7 #### [facility] CLIA [id number] [address] [place] [address] [place] #### 34624-3 #### [facility] CLIA [id number] [address] [place] [id number] [place] [facility] CLIA [id number] [address] [place] [address] [place] Cholesterol in LDL [Mass/Vol] 99 mg/dL Normal <100 [facility] Comment on above: Order Comment: Speci men Type: BLOOD SPECIMEN Ordering Facility: [facility] Address: [address] [place], [place] [address] Result Comment: <100 mg/dL, Optimal 100-129 mg/dL, Near optimal/above optimal 130-159 mg/dL, Borderline high 160-189 mg/dL, High >189 mg/dL, Very high Secondary prevention optimal LDL Cholesterol levels are recommended to be < 70 mg/dL Performed By: #### 3 016-3, 3024-7 #### [facility] CLIA [id number] [address] [place] [address] [place] #### 26747-5 #### [facility] CLIA [id number] [address] [place] [id number] [place] [facility] CLIA [id number] [address] [place] [address] [place] Cholesterol in LDL/Cholesterol in HDL [Mass ratio] 2.61 {ratio} High <2.54 [facility] Comment on above: Order Comment: Speci men Type: BLOOD SPECIMEN Ordering Facility: [facility] Address: [address] [place] [address] Result Comment: Refe rence: 1. National Cholesterol Education Program ATP III Guideline At-A-Glance Quick Desk Reference: National Heart, Lung, and Blood [place]. National Institutes of Health. 2001: NIH Publication No. 01-3305. 2. An International Atherosclerosis Society position paper: global recommendations for the management of dyslipidemia: executive summary, Atherosclerosis. 2014: 232(2):410-413. Performed By: #### 3 016-3, 302-7 #### [facility] CLIA [id number] [address] #### [address]-1 #### [facility] CLIA [id number] [address] [place] [facility] [id number] [address] [place] [address] [place] Cholesterol in VLDL [Mass/Vol] 40 mg/dL High <30 [facility] Comment on above: Order Comment: Speci men Type: BLOOD SPECIMEN Ordering Facility: [facility] Address: [address] [place] [address] Performed By: #### 3 016-3, 3023-7 #### [facility] CLIA [id number] [address] [place] #### 23989-8 #### [facility] CLIA [id number] [address] [place] [facility] CLIA [id number] [address] [place] [address] [place] Cholesterol non HDL [Mass/Vol] 139 mg/dL High <130 [facility] Comment on above: Order Comment: Speci men Type: BLOOD SPECIMEN Ordering Facility: [facility] Address: [address] [place] [id number] Result Comment: <130 mg/dL, Optimal 130-159 mg/dL, Near optimal/above optimal 160-189 mg/dL, Borderline high 190-219 mg/dL, High >219 mg/dL, Very high Secondary prevention optimal non HDL Cholesterol levels are recommended to be <100 mg/dL Performed By: #### 3 -3, 3024-01 #### [facility] CLIA [id number] [address] [place] [address] [place] #### 29598-1 #### [facility] CLIA [id number] [address] [place] [address] [place] [facility] CLIA [id number] [address] [place] [address] [place] Cholesterol.total/Bruna sterol in HDL [Mass ratio] 4.66 {ratio} Normal <5.10 [facility] Comment on above: Order Comment: Speci men Type: BLOOD SPECIMEN Ordering Facility: [facility] Address: [address] [place] [address] Performed By: #### 3 , 3024-01 #### [facility] CLIA [id number] [address] [place] [address] [place] #### 46414-7 #### [facility] CLIA [id number] [address] [place] [address] [place] [facility] [id number] [address] [place] [address] [place] FASTING TIME 12 hrs Normal [facility] Comment on above: Order Comment: Speci men Type: BLOOD SPECIMEN Ordering Facility: [facility] Address: [address] [place] [address] Performed By: #### 3 3, 3024-01 #### [facility] CLIA [id number] [address] [place] [address] [place] #### 03444-1 #### [facility] CLIA [id number] [address] [place] [address] [place] [facility] CLIA [id number] [address] [place] [address] [place] Triglyceride [Mass/Vol] 201 mg/dL High <150 [facility] Comment on above: Order Comment: Speci men Type: BLOOD SPECIMEN Ordering Facility: [facility] Address: [address] [place] [address] Result Comment: <150 mg/dL, Normal 150-199 mg/dL, Borderline high 200-499 mg/dL, High >499 mg/dL, Very high Performed By: #### 3 016-3, 3024-7 #### [facility] CLIA [id number] [address] [place] [address] [place] #### 31613-9 #### [facility] CLIA [id number] [address] [place] [address] [place] [facility] [id number] [address] [place] [address] [place] Magnesium SerPl-mCncon 01-25 Magnesium [Mass/Vol] 1.9 mg/dL Normal 1.7-2.[address] [facility] Comment on above: Order Comment: Speci men Type: BLOOD SPECIMEN Ordering Facility: [facility] Address: [address] [place] [address] Performed By: #### 2 4323-8, 15082-9 #### [facility] CLIA [id number] [address] [place] [address] [place] T4 Free SerPl-mCncon 023 Free T4 [Mass/Vol] 1.1 ng/dL Normal 0.9-1.7 [facility] [place] Comment on above: Order Comment: Speci men Type: BLOOD SPECIMEN Ordering Facility: [facility] Address: [address] [place], [place] [address] Performed By: #### 3 016-3, 3024-7 #### [facility] CLIA [id number] [address] [place] [address] [place] #### 33669-0 #### [facility] CLIA [id number] [address] [place] [address] [place] [facility] [id number] [address] [place] [address] [place] TSH SerPl-aCncon 01-25-2023 TSH Qn 0.539 m[IU]/L Normal 0.270-4.200 [facility] Comment on above: Order Comment: Speci men Type: BLOOD SPECIMEN Ordering Facility: [facility] Address: [address] [place] [address] Performed By: #### 3 016-3, 3024-7 #### [facility] CLIA [id number] [address] [place] [address] [place] #### 42776-4 #### [facility] CLIA [id number] [address] [place] [address] [place] [facility] [id number] [address] [place] [address] [place] HEMOGLOBIN A1C (POC)on 01-22 HbA1c (Bld) [Mass fraction] 14.7 % Abnormal 4.2 - 5.6 % [facility] REPORT OF OPERATIONon 2021 REPORT OF OPERATION [address] [place] [address] REPORT OF OPERATION : [id number] Signed Name: MICHELLE JULES MRUN: [id number] : 1965 Loc: [facility] Age / Sex: 56/ F Adm Status: DIS RCR Adm Date:05/02/22 Room/Bed: DATE: 05/02/2022 SURGEON: Sly Nix DPM OBJECTIVE: Vital signs taken today with a temperature of 97.4 degrees, pulse rate of 82, respiration rate of 18, blood pressure 97/68, and the pain intensity scale currently is 0/10 on the pain scale. HISTORY OF PRESENT ILLNESS: The above-captioned patient returns to the wound healing center for further treatment of 2 ulcerations, 1 on each foot. The patient says overall she is doing better. The patient states that she is ready to move to [place]. The patient states that she does move to [place] next week. The patient denies any problems with her dressing regimen. She denies any new open wounds or ulcerations since her last visit. She denies any current nausea, vomiting, fever, chills, shortness of breath, chest pain or calf tenderness. PROCEDURE: Excisional sharp debridement of diabetic foot ulcerations on the right heel and the left 2nd toe. DESCRIPTION OF PROCEDURE: Above-captioned patient was placed in supine position. The ulcerations were prepped using aseptic and sterile technique. No local anesthetic was used due to the patient's peripheral neuropathy. The ulceration on the right heel was debrided within subcutaneous tissue using a #15 blade, pickups and a #3 curette. All fibrotic, hyperkeratotic, and nonviable tissue was debrided and removed. The wound edges were debrided down to pink viable tissue. Adequate perfusion was identified with local debridement. Bleeding was easily controlled with pressure. Post-curette measurements were taken of the ulceration to be 1.4 sq cm debrided within subcutaneous tissue. The ulceration of the left 2nd toe was then debrided with selective debridement using a #2 curette. All fibrotic, hyperkeratotic, and nonviable tissue was debrided and removed. A scant amount of perfusion was identified upon debridement. Post-curette measurements were taken of the ulceration to be 0.10 sq cm debrided with selective debridement. Actual measurements of the ulceration of the left 2nd toe measured 0.2 x 0.5 x 0.1 cm. The ulcerations were then copiously irrigated with normal sterile saline. The ulcerations were dressed with gentamicin cream, covered with a dry sterile dressing. I recommend the patient either use gentamicin cream or Medihoney overlying the ulcerations, changing every 2 days. I did give the patient names and numbers of physicians in the assigned area that she can contact to do wound care. I did advise patient to follow up next week if she has not moved yet. I did advise patient to contact me or the wound healing center with any questions or concerns. I did call in a prescription for Medihoney to be used on the wounds every day to every other day. I also called a prescription in for Topicort to help with some of the venous stasis dermatitis that she does have on both lower legs. The patient is in agreement. Dictated By: Sly Nix DPM 05/03/22 1650 Dictated Date/Time: 05/02/22 1229 Transcribed Date/Time: 05/02/22 1433 Normal [facility] ED Physician Documentationon 04-30-2022 ED Physician Documentation [address] [place] [address] Physician Documentation Signed:[id number] Name: MICHELLE JULES MRUN: [id number] : 1965 Loc: ED Age / Sex: 56/ F Adm Status: REG ER Adm Date:04/30/22 Room/Bed: Disposition Decision - General Final diagnosis: Upper extremity injury Qualifiers: Encounter type: initial encounter Laterality: left Qualified Code(s): S49.92XA - Unspecified injury of left shoulder and upper arm, initial encounter Disposition: HOME, SELF-CARE Condition: Good Instructions: Wound Care Additional Instructions: have sutures removed in 10-14 days Referrals: Ha Avelar, STOCK CHECKERER [Primary Care Provider] - Call For An Appointment New prescriptions/home medications: No Action Spironolactone 25 mg PO DAILY Sertraline HCl [Zoloft] 100 mg PO DAILY Pantoprazole Sodium [Protonix] 40 mg PO DAILY Oxybutynin Chloride [Oxybutynin Chloride ER] 15 mg PO DAILY Magnesium Oxide [Magnesium] 400 mg PO BID Furosemide [Lasix] 40 mg PO DAILY Fexofenadine HCl 180 mg PO DAILY Carvedilol [Coreg] 25 mg PO BID Atorvastatin Calcium [Lipitor] 10 mg PO DAILY Aspirin [Aspir-Low 81MG *] 81 mg PO DAILY Alogliptin Benzoate [Alogliptin] 25 mg PO DAILY Ergocalciferol (Vitamin D2) [Vitamin D2] 50,000 unit PO TH Insulin Lispro [Admelog Solostar (Box of 5 Pens)] 0 unit SQ PER ORDER Lantus [Lantus Vial] 60 unit SUBCUT DAILY IN AM Gabapentin [Neurontin] 300 mg PO BID Insulin Lispro [Admelog Solostar (Box of 5 Pens)] 30 unit SUBCUT DAILY IN AM Cyanocobalamin (Vitamin B-12) [Vitamin B-12] 500 mcg PO DAILY Baclofen [Lioresal] 10 mg PO HS PRN PRN Reason: Muscle Spasms glyBURIDE [Glyburide] 5 mg PO DAILY IN AM hydrOXYZINE PAMOATE [Vistaril] 25 mg PO DAILY Pramipexole Di-HCl [Mirapex] 1 mg PO HS Meloxicam 7.5 mg PO BID #60 tablet traMADol [Ultram] 50 mg PO Q4H PRN 7 Days #38 tablet PRN Reason: Mild Pain HPI: Wound / Laceration - Time Seen by Provider Time Seen by Provider: 04/30/22 13:24 - General Information Information source:: Patient - History of Present Illness Chief complaint: Wound/Laceration Initial narrative: This is a 56-year-old female presents emergency department today with chief complaint of a laceration lateral aspect left elbow. Patient states that she scratched her elbow off of the heating unit. She has a 3 cm laceration. She has full range of motion to the elbow. She has no active bleeding. - Related Information Date of last intake: 08/20/21 Time of last intake: 22:30 - Immunization History Tetanus status: > 10 YRS - Allergies Allergies/Adverse reactions: Allergies Allergy/AdvReac Type Severity Reaction Status Date / Time adhesive Allergy Intermediate redness Verified 04/30/22 13:39 latex Allergy Intermediate Itching Verified 04/30/22 13:39 metformin AdvReac Mild Tachycardia Verified 04/30/22 13:39 simvastatin AdvReac Mild Nausea/Vomi Verified 04/30/22 13:39 ting Past Medical History Past EENT history: Glaucoma Past EENT surgeries/treatments : Oral Surgery, Tonsillectomy, Adenoidectomy, Other Additional surgical history details: Cathleen Maxwell 1970. WISDOM TEETH EXTRACTION . DANDY LASER EYE SURGERY FOR GLAUCOMA 2019 Past neurological history: Migraine, Peripheral Neuropathy, Other Additional medical history details: RLS Past neurological surgeries/treatments : Negative Past cardiovascular history: Coronary Artery Disease, Arrhythmia, Congestive Heart Failure, Hypertension, High Cholesterol, Other Type of arrhythmia:: Unknown Additional medical history details: Cardiomyopathy;CHF-2 015 Past cardiovascular surgeries/treatments :: Pacemaker, Internal Defibrillator, Cardiac Cath, Echocardiogram, Stress Test Past respiratory history: Bronchitis, Sleep Apnea Past respiratory surgeries/treatments :: Negative Past gastrointestinal history: GERD, Ulcer, Hemorrhoids Past gastrointestinal surgeries/treatments : Appendectomy, EGD, Colonoscopy Additional surgical history details: Appy 2006. Colonoscopy 2019. EGD Past genitourinary history: Urinary Tract Infection Additional medical history details: over active bladder Past Genitourinary surgeries/treatments : Cystoscopy Additional surgical history details: [facility] 2001? Past musculoskeletal history: Arthritis Type of arthritis:: Osteoarthritis Past musculoskeletal surgeries/treatments : Other Additional surgical history details: Right knee scope surgery x 2 s, Past endocrine history: Diabetes, Hypothyroidism Current diabetes treatment:: Diet, Oral Med, Insulin Additional medical history details: FSBS in AM 180-200. Goiter-pcp monitors. No thyroid medications since 2014, PCP stopped per pt history Past endocrine surgeries/treatments : Other Additional surgical history details: Ultrasound of thyroid -10/2019 per pt General Reproductive History: Negative (more content not included)... Normal [facility] REPORT OF OPERATIONon 2021 REPORT OF OPERATION [address] [place] [address] REPORT OF OPERATION : [id number] Signed Name: MICHELLE JULES MRUN: [id number] : 1965 Loc: [facility] Age / Sex: 56/ F Adm Status: REG RCR Adm Date:04/25/22 Room/Bed: DATE: 04/25/2022 SURGEON: Sly Nix DPM PROCEDURE: Excisional sharp debridement of 2 diabetic ulcerations; 1 on the right heel, 1 on the left 2nd toe. DESCRIPTION OF PROCEDURE: Above-captioned patient was placed in supine position. The ulcerations were prepped using aseptic and sterile technique. The ulcerations were anesthetized with topical lidocaine gel. Ulceration of right heel was debrided within the subcutaneous tissue using a #15 blade, pickups, and #3 curette. All fibrotic, hyperkeratotic, and nonviable tissue was debrided and removed. The wound edges were debrided down to pink viable tissue. Adequate perfusion was identified with local debridement. Bleeding was easily controlled with pressure. Post curette measurements taken on the ulceration right heel to be 3 square cm debrided within the subcutaneous tissue. Actual measurements of ulceration right heel measured 0.5 x 6.0 x 0.1 cm. The ulceration left 2nd toe was then debrided with selective debridement using #2 curette. All fibrotic and nonviable tissue was debrided and removed. A scant amount of perfusion was identified. Post curette measurements were taken of the ulceration left 2nd toe to be 0.15 square cm debrided with selective debridement. Actual measurements of the ulceration left 2nd toe measured 0.3 x 0.5 x 0.1 cm. The ulcerations were copiously irrigated with normal sterile saline. The ulcerations were dressed with gentamicin cream, covered with a dry sterile dressing. Informed the patient to continue using Medihoney at home. I did advise patient to continue to maintain a high-protein diet and take a multivitamin with zinc supplements on a daily basis. She is to follow up in 1 week. Dictated By: Sly Nix DPM 04/30/22 1013 Dictated Date/Time: 04/25/22 1232 Transcribed Date/Time: 04/25/22 1420 Normal [facility] Ameena 04-20-2022 ALT [Catalytic activity/Vol] 17 U/L Normal 0-32 [facility] Comment on above: Order Comment: MONIK navas [phone] tel. , fax [phone] ALT [Catalytic activity/Vol] 17 U/L 0 - 32 U/L [facility] Jagjit 04-20-2022 AST [Catalytic activity/Vol] 14 U/L Normal 0-31 [facility] Comment on above: Order Comment: CALL doctor 10850 tel. , fax [phone] AST [Catalytic activity/Vol] 14 U/L 0 - 31 U/L [facility] BNPon 04-20-2022 Natriuretic peptide B (Bld) [Mass/Vol] 133 pg/mL High 0-125 [facility] Comment on above: Order Comment: MONIK navas [address]71 tel. , fax [phone] Basic Metabolic Panelon 10 Anion gap [Moles/Vol] 10 mmol/L Normal 7-16 [facility] Comment on above: Order Comment: CALL doctor 40351 tel. , fax [phone] Calcium [Mass/Vol] 9.7 mg/dL Normal 8.6-10.2 [facility] Comment on above: Order Comment: CALL doctor 27246 tel. , fax [phone] Chloride [Moles/Vol] 98 mmol/L Normal 98-107 [facility] Comment on above: Order Comment: CALL doctor 38894 tel. , fax [phone] CO2 [Moles/Vol] 28 mmol/L Normal 22-29 [facility] Comment on above: Order Comment: CALL doctor 43902 tel. , fax [phone] Creatinine [Mass/Vol] 0.9 mg/dL Normal 0.5-1.0 [facility] Comment on above: Order Comment: CALL doctor 26181 tel. , fax [phone] GFR Calculated >60 Normal >=60 [facility] Comment on above: Order Comment: CALL doctor 14669 tel. , fax [phone] Result Comment: Orthotic Aide josh Kidney Disease: less than 60 ml/min/1.73 sq.m. Kidney Failure: less than 15 ml/min/1.73 sq.m. Results valid for patients 18 years and older. GFR/1.73 sq M.predicted among blacks MDRD (S/P/Bld) [Vol rate/Area] mL/min/{1.73_m2} Normal [facility] Comment on above: Order Comment: CALL doctor [id number] tel. , fax [phone] Glucose [Mass/Vol] 429 mg/dL High 74-99 [facility] Comment on above: Order Comment: CALL doctor [phone] tel. , fax [phone] Potassium [Moles/Vol] 4.4 mmol/L Normal 3.5-5.0 [facility] Comment on above: Order Comment: CALL doctor [id number] tel. , fax [phone] Sodium [Moles/Vol] 136 mmol/L Normal 132-146 [facility] Comment on above: Order Comment: CALL doctor [id number] tel. , fax [phone] Urea nitrogen [Mass/Vol] 14 mg/dL Normal 6-20 [facility] Comment on above: Order Comment: CALL doctor [id number] tel. , fax [phone] Anion gap [Moles/Vol] 10 mmol/L 7 - 16 mmol/L [facility] Calcium [Mass/Vol] 9.7 mg/dL 8.6 - 10. 2 mg/dL [facility] Chloride [Moles/Vol] 98 mmol/L 98 - 10 7 mmol/L [facility] CO2 [Moles/Vol] 28 mmol/L 22 - 29 mmol/L [facility] Creatinine [Mass/Vol] 0.9 mg/dL 0.5 - 1 mg/dL [facility] GFR >60 [facility] GFR Non- >60 60 - PINF mL/min/1.73 [facility] Comment on above: Chronic Kidney Disea se: less than 60 ml/min/1.73 sq.m. Kidney Failure: less than 15 ml/min/1.73 sq.m. Results valid for patients 18 years and older. Glucose [Mass/Vol] 429 mg/dL High 74 - 99 mg/dL [facility] Interpretation and review of laboratory results Abnormal [facility] Potassium [Moles/Vol] 4.4 mmol/L 3.5 - 5 mmol/L [facility] Sodium [Moles/Vol] 136 mmol/L 132 - 146 mmol/L [facility] Urea nitrogen (BldV) [Mass/Vol] 14 mg/dL 6 - 20 mg/dL [facility] Brain Natriuretic Peptideon 04-20-2022 Interpretation and review of laboratory results Abnormal [facility] Natriuretic peptide B (Bld) [Mass/Vol] 133 pg/mL High 0 - 125 pg/mL [facility] CALL doctor [phone] tel. , fax [phone] [facility] Magnesiumon 04-20-2022 Magnesium [Mass/Vol] 2.0 mg/dL Normal 1.6-2.6 [facility] Comment on above: Order Comment: CALL doctor [phone] tel. , fax [phone] Magnesium [Mass/Vol] 2.0 mg/dL 1.6 - 2 .6 mg/dL [facility] No Panel Informationon 04-20 CALL doctor [phone] tel. , fax [phone] [facility] LIVERon 03-22-2022 LIVER [facility] [address] [place] [address] Diagnostic Imaging Report : [id number] Signed Name: MICHELLE JULES MRUN: [id number] : 1965 Loc: Age / Sex: 56 / F ADM Status: REG CLI ADM Date: 03/22/22 Room/Bed: Ordering Physician: Ha Avelar NP Procedure: US LIVER Order Number(s): [id number] Ordered Date: 03/22/22 Ordered Time: 801 EXAMINATION: RIGHT UPPER QUADRANT ULTRASOUND 03/22/2022 8:30 am COMPARISON: None. HISTORY: ELEVATED ALKALINE PHOS. LEVEL FINDINGS: LIVER: Nonspecific heterogeneous echotexture without a focal lesion. BILIARY SYSTEM: Gallbladder is unremarkable without evidence of pericholecystic fluid, wall thickening or stones. Negative sonographic Louis's sign. Common bile duct is 2.7 mm. RIGHT KIDNEY: The right kidney is grossly unremarkable without evidence of hydronephrosis. PANCREAS: Visualized portions of the pancreas are unremarkable. OTHER: No evidence of right upper quadrant ascites. IMPRESSION: Nonspecific heterogeneous echotexture of the liver without a focal lesion would suggest chronic hepatocellular disease. Dictated By: Ko Valdez DO Dictated Date/Time: 03/22/22839 Signed By: Ko Valdez DO Signed Date/Time: 03/22/22843 Transcribed Date/Time: 03/22/22839 Normal [facility] ALKALINE PHOSPHATASEon 03-07 ALP [Catalytic activity/Vol] 172 U/L High 43-122 [facility] Comment on above: Performed By: #### A LK PHOS 1 #### Main Lab - [facility] [address] Serum or plasma alkaline tabitha sphatase measurement (enzymatic activity/volume)on 03-07-2022 ALP [Catalytic activity/Vol] 172 U/L 43-122 [facility] [employer] Work Phone: FREE T3on 03-01-2022 Free T3 [Mass/Vol] 2.9 pg/mL Normal 2.8-5.3 [facility] [employer] [facility] Comment on above: Performed By: #### [id number] #### [place] [address] FREE T4on 03-01-2022 Free T4 [Mass/Vol] 0.83 ng/dL Normal 0.78-2.19 [facility] Comment on above: Performed By: #### 4 [id number] #### [place] [address] No Panel Informationon 03-01 [facility] T3, Freeon 03-01-2022 Free T3 [Mass/Vol] 2.9 pg/mL 2.8 - 5.3 pg/mL [facility] [employer] T4, Freeon 03-01-2022 Free T4 [Mass/Vol] 0.83 ng/dL 0.78 - 2. 19 ng/dL [facility] TSHon 03-01-2022 TSH 0.689 uIU/mL Normal 0.465-4.680 [facility] Comment on above: Performed By: #### 4 [id number] #### [place] [address] TSH Qn 0.689 m[IU]/L [facility] Albumin [Mass/volume] in Ser um or Plasmaon 02-06-2022 Albumin [Mass/Vol] 3.8 g/dL 3.9-5.0 [facility] [employer] Work Phone: Albumin/Globulin [Mass Ratio ] in Serum or Plasmaon 02-06-2022 Albumin/Globulin [Mass ratio] 1.0 {ratio} 1.1-1.8 [facility] Work Phone: Anion gap 4 [Moles/Vol]on Anion gap [Moles/Vol] 12 mmol/L 9-[address] [facility] Work Phone: Aspartate aminotransferase [ Enzymatic activity/volume] in Serum or Plasmaon 02-06-2022 AST [Catalytic activity/Vol] 16 U/L 8-39 [facility] Work Phone: Basophils Auto (Bld) [#/Vol] on 02-06-2022 Basophils (Bld) [#/Vol] 0.1 10*3/uL 0.0-0.2 [facility] Work Phone: Basophils/100 WBC Auto (Bld) on 02-06-2022 Basophils/100 WBC (Bld) 0.7 % 0.0-1.0 [facility] Work Phone: Bilirubin.total [Mass/volume ] in Serum or Plasmaon 02-06-2022 Bilirubin [Mass/Vol] 0.5 mg/dL 0.2-1.3 [facility] Work Phone: CBC WITH AUTO DIFFon 022 BASO, ABSOLUTE (AUTO) 0.1 10 3/uL Normal 0.0-0.2 [facility] Comment on above: Performed By: #### C MP, CBC, LIPID, VITAMIN D, TSH 1, B12 1 #### Main Lab - [facility] [address] [place] [address] Basophils/100 WBC (Bld) 0.7 % Normal 0.0-1.[address] [facility] Comment on above: Performed By: #### C MP, CBC, LIPID, VITAMIN D, TSH 1, B12 1 #### Main Lab - [facility] [address] [place] [address] EOSINOPHILS, ABSOLUTE (AUTO) 0.1 10 3/uL Normal 0.0-0.7 [facility] Comment on above: Performed By: #### C MP, CBC, LIPID, VITAMIN D, TSH 1, B12 1 #### [facility] - [address] [address] Eosinophils/100 WBC (Bld) 1.1 % Normal 0.0-5.0 [facility] Comment on above: Performed By: #### C MP, CBC, LIPID, VITAMIN D, TSH 1, B12 1 #### [facility] - [address] [address] Erythrocyte distribution width (RBC) [Ratio] 15.9 % High 11.5-14.0 [facility] Comment on above: Performed By: #### C MP, CBC, LIPID, VITAMIN D, TSH 1, B12 1 #### [facility] - [address] [address] Hematocrit (Bld) [Volume fraction] 35.8 % Normal 34.8-45.0 [facility] Comment on above: Performed By: #### C MP, CBC, LIPID, VITAMIN D, TSH 1, B12 1 #### [facility] - [address] [address] Hemoglobin (Bld) [Mass/Vol] 12.1 g/dL Normal 11.6-14.9 [facility] Comment on above: Performed By: #### C MP, CBC, LIPID, VITAMIN D, TSH 1, B12 1 #### [facility] - [address] [address] LYMPHOCYTES, ABSOLUTE (AUTO) 1.9 10 3/uL Normal 1.0-3.5 [facility] Comment on above: Performed By: #### C MP, CBC, LIPID, VITAMIN D, TSH 1, B12 1 #### [facility] - [address] [address] Lymphocytes/100 WBC (Bld) 26.3 % Normal 24.0-44.0 [facility] Comment on above: Performed By: #### C MP, CBC, LIPID, VITAMIN D, TSH 1, B12 1 #### [facility] - [address] [address] MCH (RBC) [Entitic mass] 28.7 pg Normal 27.0-31.0 [facility] Comment on above: Performed By: #### C MP, CBC, LIPID, VITAMIN D, TSH 1, B12 1 #### [facility] - [facility] [address] [place] [address] MCHC (RBC) [Mass/Vol] 33.7 g/dL Normal 32.0-36.0 [facility] Comment on above: Performed By: #### C MP, CBC, LIPID, VITAMIN D, TSH 1, B12 1 #### Main Lab - [facility] [place], [place] [address] MCV (RBC) [Entitic vol] 85.0 fL Normal 78.0-100.0 [facility] Comment on above: Performed By: #### C MP, CBC, LIPID, VITAMIN D, TSH 1, B12 1 #### [facility] - [facility] [address] [place] [address] MONOCYTES, ABSOLUTE (AUTO) 0.6 10 3/uL Normal 0.2-0.8 [facility] Comment on above: Performed By: #### C MP, CBC, LIPID, VITAMIN D, TSH 1, B12 1 #### [facility] - [facility] [address] [place], [place] [address] Monocytes/100 WBC (Bld) 8.1 % Normal 1.7-9.3 [facility] Comment on above: Performed By: #### C MP, CBC, LIPID, VITAMIN D, TSH 1, B12 1 #### [facility] - [facility] [address] [place] [address] NEUTROPHILS, ABSOLUTE (AUTO) 4.7 10 3/uL Normal 1.5-6.7 [facility] Comment on above: Performed By: #### C MP, CBC, LIPID, VITAMIN D, TSH 1, B12 1 #### [facility] - [facility] [address] [place] [address] Neutrophils/100 WBC (Bld) 63.8 % Normal 36.0-66.0 [facility] Comment on above: Performed By: #### C MP, CBC, LIPID, VITAMIN D, TSH 1, B12 1 #### Main Lab [facility] [address] [place] [address] PLATELET COUNT 167 10 3/uL Normal 150-450 [facility] Comment on above: Performed By: #### C MP, CBC, LIPID, VITAMIN D, TSH 1, B12 1 #### Main Lab - [facility] [address] [place], [place] [address] Platelet mean volume (Bld) [Entitic vol] 9.4 fL Normal 6.0-9.5 [facility] Comment on above: Performed By: #### C MP, CBC, LIPID, VITAMIN D, TSH 1, B12 1 #### Main Lab [facility] [address] [place], [place] [address] RED BLOOD COUNT 4.21 x10 6/uL Normal 3.89-5.30 [facility] Comment on above: Performed By: #### C MP, CBC, LIPID, VITAMIN D, TSH 1, B12 1 #### Main Lab - [facility] [place], [place] [address] WHITE BLOOD COUNT 7.4 10 3/uL Normal 4.0-10.5 [facility] Comment on above: Performed By: #### C MP, CBC, LIPID, VITAMIN D, TSH 1, B12 1 #### [facility] [address] [place] [address] COMPREHENSIVE METABOLIC PANE Dmitry 02-06-2022 Albumin [Mass/Vol] 3.8 g/dL Low 3.9-5.0 [facility] Comment on above: Performed By: #### C MP, CBC, LIPID, VITAMIN D, TSH 1, B12 1 #### [facility] [address] [place] [address] Albumin/Globulin [Mass ratio] 1.0 {ratio} Low 1.1-1.8 [facility] Comment on above: Performed By: #### C MP, CBC, LIPID, VITAMIN D, TSH 1, B12 1 #### [facility] [address] [place] [address] ALP [Catalytic activity/Vol] 172 U/L High 43-122 [facility] Comment on above: Performed By: #### C MP, CBC, LIPID, VITAMIN D, TSH 1, B12 1 #### [facility] [address] [place] [address] ALT [Catalytic activity/Vol] 18 U/L Normal 7-56 [facility] Comment on above: Performed By: #### C MP, CBC, LIPID, VITAMIN D, TSH 1, B12 1 #### [facility] [address] [place], [place] [address] Anion gap [Moles/Vol] 12 mmol/L Normal 9-18 [facility] Comment on above: Performed By: #### C MP, CBC, LIPID, VITAMIN D, TSH 1, B12 1 #### Main Lab [facility] [address] [place], [place] [address] AST [Catalytic activity/Vol] 16 U/L Normal 8-39 [facility] Comment on above: Performed By: #### C MP, CBC, LIPID, VITAMIN D, TSH 1, B12 1 #### Main Lab [facility] [address] [place], [place] [address] Bilirubin [Mass/Vol] 0.5 mg/dL Normal 0.2-1.3 [facility] Comment on above: Performed By: #### C MP, CBC, LIPID, VITAMIN D, TSH 1, B12 1 #### Main [facility] [address] [place] [address] BUN/CREATININE RATIO 18.0 Ratio Normal 5.0-42.0 [facility] Comment on above: Performed By: #### C MP, CBC, LIPID, VITAMIN D, TSH 1, B12 1 #### [facility] [address] [place] [address] Calcium [Mass/Vol] 9.3 mg/dL Normal 8.4-10.2 [facility] Comment on above: Performed By: #### C MP, CBC, LIPID, VITAMIN D, TSH 1, B12 1 #### [facility] [address] [place] [address] Chloride [Moles/Vol] 105 mmol/L Normal 98-107 [facility] Comment on above: Performed By: #### C MP, CBC, LIPID, VITAMIN D, TSH 1, B12 1 #### Main Lab - [facility] [place], [place] [address] CO2 [Moles/Vol] 29 mmol/L Normal 22-31 [facility] Comment on above: Performed By: #### C MP, CBC, LIPID, VITAMIN D, TSH 1, B12 1 #### Main Lab [facility] [address] [place] [address] Creatinine [Mass/Vol] 0.89 mg/dL Normal 0.80-1.30 [facility] Comment on above: Performed By: #### C MP, CBC, LIPID, VITAMIN D, TSH 1, B12 1 #### [facility] [address] [place] [address] ESTIMATED GLOMERULAR FILT RATE > 60.000 Normal [facility] Comment on above: Performed By: #### C MP, CBC, LIPID, VITAMIN D, TSH 1, B12 1 #### Main [facility] [address] [place] [address] Globulin (S) [Mass/Vol] 3.7 g/dL Normal [facility] Comment on above: Performed By: #### C MP, CBC, LIPID, VITAMIN D, TSH 1, B12 1 #### [facility] - [facility] [address] [place] [address] Glucose [Mass/Vol] 89 mg/dL Normal 70-99 [facility] Comment on above: Result Comment: The glucose range is based on recommendations from the [employer] for fasting blood glucose range. Performed By: #### C MP, CBC, LIPID, VITAMIN D, TSH 1, B12 1 #### [facility] - [facility] [address] [place] [address] Potassium [Moles/Vol] 4.6 mmol/L Normal 3.6-5.0 [facility] Comment on above: Performed By: #### C MP, CBC, LIPID, VITAMIN D, TSH 1, B12 1 #### [facility] - [facility] [address] [place] [address] Protein [Mass/Vol] 7.5 g/dL Normal 6.3-8.2 [facility] Comment on above: Performed By: #### C MP, CBC, LIPID, VITAMIN D, TSH 1, B12 1 #### Main [facility] [address] [place] [address] Sodium [Moles/Vol] 141 mmol/L Normal 137-145 [facility] Comment on above: Performed By: #### C MP, CBC, LIPID, VITAMIN D, TSH 1, B12 1 #### Main [facility] [address] [place], [place] [address] Urea nitrogen [Mass/Vol] 16 mg/dL Normal 7-21 [facility] Comment on above: Performed By: #### C MP, CBC, LIPID, VITAMIN D, TSH 1, B12 1 #### Main [facility] [address] [place], [place] [address] AGE,PATIENT 56 Years Normal [facility] Comment on above: Performed By: #### C MP, CBC, LIPID, VITAMIN D, TSH 1, B12 1 #### Main [facility] [address] [place], [place] [address] Calcium [Mass/volume] in Ser um or Plasmaon 02-06-2022 Calcium [Mass/Vol] 9.3 mg/dL 8.4-10.2 [facility] [employer] Work Phone: Carbon dioxide, total [Moles /volume] in Serum or Plasmaon 02-06-2022 CO2 [Moles/Vol] 29 mmol/L - [facility] Work Phone: Cardiac heart disease risk [ Ratio] in Serum or Plasmaon 02-06-2022 Cardiac heart disease risk [Ratio] 3.891 [facility] Work Phone: Comment on above: Based on the results of the Cholesterol, Triglyceride, HDL Cholesterol, and LDL Cholesterol procedures, this patient has an average risk for developing Coronary Heart Disease. Chloride [Moles/volume] in S farrah or Plasmaon 02-06-2022 Chloride [Moles/Vol] 105 mmol/L 98-107 Karoline baker [facility] Work Phone: Cholesterol in LDL Calc [Mas s/Vol]on 02-06-2022 Cholesterol in LDL [Mass/Vol] 69 mg/dL 0-130 [facility] Work Phone: Comment on above: Expected Values:Karina rable: < 130 mg/dLBorderline-High Risk: 130-159 mg/dLHigh Risk: > or =160 mg/dLCalculation of LDL may be inaccurate for samples with triglyceride concentrations greater than 400 mg/dL or with samples from patients who have Type III hyperlipoproteinemia(electrophoretic broad beta lipoprotein present). Cholesterol in LDL/Cholester ol in HDL [Mass Ratio] in Serum or Plasmaon 02-06-2022 Cholesterol in LDL/Cholesterol in HDL [Mass ratio] 1.86 {ratio} [facility] [employer] Work Phone: Cobalamin (Vitamin B12) [Mas s/volume] in Serum or Plasmaon 02-06-2022 Cobalamin (Vitamin B12) [Mass/Vol] 738 pg/mL 194-934 [facility] [employer] Work Phone: Creatinine [Mass/volume] in Serum or Plasmaon 02-06-2022 Creatinine [Mass/Vol] 0.89 mg/dL 0.80-1.30 [facility] [employer] Work Phone: Determination of erythrocyte mean corpuscular volume (MCV)on 02-06-2022 MCV (RBC) [Entitic vol] 85.0 fL 78.0-100.0 [facility] [employer] Work Phone: Eosinophils Auto (Bld) [#/Vo l]on 02-06-2022 Eosinophils (Bld) [#/Vol] 0.1 10*3/uL 0.0-0.7 [facility] [employer] Phone: Eosinophils/100 WBC Auto (Bl d)on 02-06-2022 Eosinophils/100 WBC (Bld) 1.1 % 0.0-5.0 [facility] [employer] Work Phone: Erythrocyte distribution wid th Auto (RBC) [Ratio]on 02-06-2022 Erythrocyte distribution width (RBC) [Ratio] 15.9 % 11.5-14.0 [facility] [employer] Work Phone: Globulin [Mass/volume] in Se rumon 02-06-2022 Globulin (S) [Mass/Vol] 3.7 g/dL [facility] [employer] Work Phone: Glucose [Mass/volume] in Ser um or Plasmaon 02-06-2022 Glucose [Mass/Vol] 89 mg/dL 70-99 [facility] [employer] Work Phone: Comment on above: The glucose range is based on recommendations from the [employer] for fasting blood glucose range. Hematocrit Auto (Bld) [Volum e fraction]on 02-06-2022 Hematocrit (Bld) [Volume fraction] 35.8 % 34.8-45.0 [facility] Work Phone: Hemoglobin [Mass/volume] in Bloodon 02-06-2022 Hemoglobin (Bld) [Mass/Vol] 12.1 g/dL 11.6-14.9 [facility] [employer] Work Phone: LIPID PANELon 02-06-2022 CARDIAC RISK 3.891 Normal [facility] Comment on above: Result Comment: Base d on the results of the Cholesterol, Triglyceride, HDL Cholesterol, and LDL Cholesterol procedures, this patient has an average risk for developing Coronary Heart Disease. Performed By: #### C MP, CBC, LIPID, VITAMIN D, TSH 1, B12 1 #### Main Lab [facility] [address] [place], [place] [address] Cholesterol [Mass/Vol] 144 mg/dL Normal 0-200 [facility] Comment on above: Performed By: #### C MP, CBC, LIPID, VITAMIN D, TSH 1, B12 1 #### [facility] [address] [place], [place] [address] Cholesterol in HDL [Mass/Vol] 37 mg/dL Normal 35-67 [facility] Comment on above: Performed By: #### C MP, CBC, LIPID, VITAMIN D, TSH 1, B12 1 #### [facility] [address] [place], [place] [address] LDL CHOLESTEROL,CALCULATED 69 mg/dL Normal 0-130 [facility] Comment on above: Result Comment: Expe cted Values: Desirable: < 130 mg/dL Borderline-High Risk: 130-159 mg/dL High Risk: > or =160 mg/dL Calculation of LDL may be inaccurate for samples with triglyceride concentrations greater than 400 mg/dL or with samples from patients who have Type III hyperlipoproteinemia(electrophoretic broad beta lipoprotein present). Performed By: #### C MP, CBC, LIPID, VITAMIN D, TSH 1, B12 1 #### Main [facility] [address] [place], [place] [address] LDL/HDL RATIO 1.86 Normal [facility] Comment on above: Performed By: #### C MP, CBC, LIPID, VITAMIN D, TSH 1, B12 1 #### Main Lab [facility] [address] [place], [place] [address] Triglyceride [Mass/Vol] 190 mg/dL High 35-[address] [facility] Comment on above: Result Comment: Lobito higgins from the [employer]: Triglycerides Level Category -------- < 150 mg/dL Normal 150 - 199 mg/dL Borderline High 200 - 499 mg/dL High > or = 500 mg/dL Very High Performed By: #### C MP, CBC, LIPID, VITAMIN D, TSH 1, B12 1 #### [facility] [address] [place], [place] [address] Lymphocytes Auto (Bld) [#/Vo l]on 02-06-2022 Lymphocytes (Bld) [#/Vol] 1.9 10*3/uL 1.0-3.5 [facility] [employer] Work Phone: Lymphocytes/100 WBC Auto (Bl d)on 02-06-2022 Lymphocytes/100 WBC (Bld) 26.3 % 24.0-44.0 [facility] [employer] Work Phone: MCH Auto (RBC) [Entitic mass ]on 02-06-2022 MCH (RBC) [Entitic mass] 28.7 pg 27.0-31.0 [facility] [employer] Work Phone: MCHC Auto (RBC) [Mass/Vol]on 02-06-2022 MCHC (RBC) [Mass/Vol] 33.7 g/dL 32.0-36.0 [facility] [employer] Work Phone: Monocytes Auto (Bld) [#/Vol] on 02-06-2022 Monocytes (Bld) [#/Vol] 0.6 10*3/uL 0.2-0.8 [facility] [employer] Work Phone: Monocytes/100 WBC Auto (Bld) on 02-06-2022 Monocytes/100 WBC (Bld) 8.1 % 1.7-9.3 [facility] [employer] Work Phone: Neutrophils Auto (Bld) [#/Vo l]on 02-06-2022 Neutrophils (Bld) [#/Vol] 4.7 10*3/uL 1.5-6.7 [facility] [employer] Work Phone: Neutrophils/100 WBC Auto (Bl d)on 02-06-2022 Neutrophils/100 WBC (Bld) 63.8 % 36.0-66.0 [facility] [employer] Work Phone: No Panel Informationon 02-06 Est Glomerular Filtrat Rate mL/min > 60.000 mL/min [facility] [employer] Work Phone: Platelet mean volume Auto (B ld) [Entitic vol]on 02-06-2022 Platelet mean volume (Bld) [Entitic vol] 9.4 fL 6.0-9.5 [facility] [employer] Work Phone: Platelets Auto (Bld) [#/Vol] on 02-06-2022 Platelets (Bld) [#/Vol] 167 10*3/uL 150-450 [facility] [employer] Work Phone: Potassium [Moles/volume] in Serum or Plasmaon 02-06-2022 Potassium [Moles/Vol] 4.6 mmol/L 3.6-5.0 [facility] [employer] Work Phone: Protein [Mass/volume] in Ser um or Plasmaon 02-06-2022 Protein [Mass/Vol] 7.5 g/dL 6.3-8.2 [facility] [employer] Work Phone: RBC Auto (Bld) [#/Vol]on RBC (Bld) [#/Vol] 4.21 10*6/uL 3.89-5.30 [facility] [employer] Work Phone: Serum or plasma alanine guzman otransferase measurement (enzymatic activity/volume)on 02-06-2022 ALT [Catalytic activity/Vol] 18 U/L 7-56 [facility] [employer] Work Phone: Serum or plasma alkaline tabitha sphatase measurement (enzymatic activity/volume)on 02-06-2022 ALP [Catalytic activity/Vol] 172 U/L 43-122 [facility] [employer] Work Phone: Serum or plasma cholesterol in HDL measurement (mass/volume)on 02-06-2022 Cholesterol in HDL [Mass/Vol] 37 mg/dL 35-67 [facility] [employer] Work Phone: Serum or plasma cholesterol measurement (mass/volume)on 02-06-2022 Cholesterol [Mass/Vol] 144 mg/dL 0-200 [facility] [employer] Work Phone: Serum or plasma thyroid stim ulating hormone (TSH) measurementon 02-06-2022 TSH Qn 0.63 m[IU]/L 0.45-5.33 [facility] [employer] Work Phone: Serum or plasma urea nitroge n measurement (mass/volume)on 02-06-2022 Urea nitrogen [Mass/Vol] 16 mg/dL 7-21 [facility] [employer] Work Phone: Sodium [Moles/volume] in Ser um or Plasmaon 02-06-2022 Sodium [Moles/Vol] 141 mmol/L 137-145 [facility] [employer] Work Phone: THYROID STIMULATING HORMONEo n 02-06-2022 TSH Qn 0.63 m[IU]/L Normal 0.45-5.33 [facility] Comment on above: Performed By: #### C MP, CBC, LIPID, VITAMIN D, TSH 1, B12 1 #### [facility] [address] [place] [address] Total vitamin D measuremento n 02-06-2022 Vitamin D+Metabolites [Mass/Vol] 43.3 ng/mL 30-100 [facility] Work Phone: Comment on above: In 2010, the [employer] Good Subcommittee of the [employer] Task Force established the guidelines below for recommended serum 25(OH) vitamin D levels.Deficient <20 ng/mLInsufficient 20 to <30 ng/mLSufficient 30 to 100 ng/mLUpper Safety Limit >100 ng/mL Triglyceride Calc [Mass/Vol] on 02-06-2022 Triglyceride [Mass/Vol] 190 mg/dL 35-[address] [place] [employer] Work Phone: Comment on above: Guidelines from the [employer]: Triglycerides Level Category -------- < 150 mg/dL Normal 150 - 199 mg/dL Borderline High 200 - 499 mg/dL High > or = 500 mg/dL Very High Urea/Creatinine [Mass Ratio] in Serum or Plasmaon 02-06-2022 Urea/Creatinine [Mass ratio] 18.0 Ratio 5.0-42.0 [facility] [employer] Work Phone: VITAMIN B12on 02-06-2022 Cobalamin (Vitamin B12) [Mass/Vol] 738 pg/mL Normal 194-934 [facility] Comment on above: Performed By: #### C MP, CBC, LIPID, VITAMIN D, TSH 1, B12 1 #### Main Lab - [facility] [place], [place] [address] VITAMIN Don 02-06-2022 VITAMIN D 43.3 ng/mL Normal 30-100 [facility] Comment on above: Result Comment: In , the Clinical Guidlines Subcommittee of the Endocrine Society Task Force established the guidelines below for recommended serum 25(OH) vitamin D levels. Deficient <20 ng/mL Insufficient 20 to <30 ng/mL Sufficient 30 to 100 ng/mL Upper Safety Limit >100 ng/mL Performed By: #### C MP, CBC, LIPID, VITAMIN D, TSH 1, B12 1 #### Main Lab - [facility] [place], [place] [address] WBC Auto (Bld) [#/Vol]on WBC (Bld) [#/Vol] 7.4 10*3/uL 4.0-10.5 [facility] [employer] Work Phone: THYROID STIMULATING IMMUNOGL OBULINon 10-14-2021 THYROID STIMULATING IMMUNOGLOBULIN SEE BELOW Normal [facility] Comment on above: Result Comment: Thyr oid Stimulating Immuno SEE BELOW <0.10 <=0.54 IU/L INTERPRETIVE INFORMATION: Thyroid Stimulating Immunoglobulin (TSI) 0.54 IU/L or less.........Consistent with healthy thyroid function or non-Graves thyroid or autoimmune disease. Those with healthy thyroid function typically have results less than 0.1 IU/L. 0.55 IU/L or greater......Consistent with Graves disease (autoimmune hyperthyroidism) This assay specifically detects thyroid stimulating autoantibodies. For diagnostic purposes, the results obtained from this assay should be used in combination with clinical examination, patient medical history, and other findings. Performed By: [employer] [address] [place] [address] Ginner Helper: Rina Dexter MD Performed By: #### 3 [id number] #### [place] [address] No Panel Informationon 10-13 Atrial Rate [facility] [place] [facility] P-R Interval [facility] Q-T Interval [facility] Q-T Interval (corrected) [facility] QRS Duration [facility] QTC Calculation (Bezet) [facility] [place] [facility] TSH MACHINE SET UP OPERATOR P[employer]ER GOODS ABon 10-13-2021 TSH RECEPTOR AB <0.80 Normal <=1.75 [facility] Comment on above: Result Comment: Perf ormed By: [employer] [address] [place] [address] Ginner Helper: Rina Dexter MD Performed By: #### 4 [id number] #### [place] [address] THYROID PEROXIDASEon 022 THYROID PEROXIDASE 3.6 IU/mL Normal 0.0-9.0 [facility] Comment on above: Result Comment: Perf ormed By: [employer] [address] [place] [address] Ginner Helper: Rina Dexter MD Performed By: #### 4 [id number] #### [place] [address] FREE T3on 10-10-2021 Free T3 [Mass/Vol] 4.5 pg/mL Normal 2.8-5.3 [facility] Comment on above: Performed By: #### 4 [id number] #### [place] [address] FREE T4on 10-10-2021 Free T4 [Mass/Vol] 1.23 ng/dL Normal 0.78-2.19 [facility] Comment on above: Performed By: #### 4 [id number] #### [place] [address] No Panel Informationon 10-10 [facility] T3, Freeon 10-10-2021 Free T3 [Mass/Vol] 4.5 pg/mL 2.8 - 5.3 pg/mL [facility] T4, Freeon 10-10-2021 Free T4 [Mass/Vol] 1.23 ng/dL 0.78 - 2. 19 ng/dL [facility] TSHon 10-10-2021 TSH 0.539 uIU/mL Normal 0.465-4.680 [facility] Comment on above: Performed By: #### 4 [id number] #### [place] [address] TSH Qn 0.539 m[IU]/L [facility] Basic metabolic 2000 panelOr dered By: SLY NIX on 08-16-2021 Age [Time] 56 Years Sly Nix D.P.M. Work Phone: Anion gap [Moles/Vol] 14 mmol/L Normal 9 - 18 Naomi Collins.P.M. Work Phone: Calcium [Mass/Vol] 8.4 mg/dL Normal 8.4 - 10.2 Sly Nix D.P.M. Work Phone: Chloride [Moles/Vol] 96 mmol/L Low 98 - 107 Naomi Estrella ph D.P.M. Work Phone: CO2 [Moles/Vol] 26 mmol/L Normal 22 - 31 Sly Del Rio D.P.M. Work Phone: Creatinine [Mass/Vol] 0.89 mg/dL Normal 0.80 - 1.30 Naomi Mueller.P.M. Work Phone: GFR/1.73 sq M.predicted MDRD (S/P/Bld) [Vol rate/Area] Laboratory test result Normal Naomi Lemos.P.M. Work Phone: Glucose [Mass/Vol] 493 mg/dL Critically high 70 - 99 Kendra Nix D.P.M. Work Phone: Comment on above: Critical result GLU 493 mg/dL called to and read back by DORIAN ARAGON RN PAT at 16-Aug-2021 13:42 by TERESA. The glucose range is based on recommendations from the [place] [employer] for fasting blood glucose range. Potassium [Moles/Vol] 3.9 mmol/L Normal 3.6 - 5.0 Asa Nix D.P.M. Work Phone: Sodium [Moles/Vol] 132 mmol/L Low 137 - 145 Naomi Lemos.P.M. Work Phone: Urea nitrogen [Mass/Vol] 13 mg/dL Normal 7 - 21 Naomi Lemos.P.M. Work Phone: Urea/Creatinine [Mass ratio] 14.6 Ratio Normal 5.0 - 42.0 Naomi Lemos.P.M. Work Phone: Hemogram, platelets & Differ ential panel (Bld)Ordered By: SLY NIX on 08-16-2021 Basophils (Bld) [#/Vol] 0.0 10*3/uL Normal 0.0 - 0.2 Gisselle LemosP.M. Work Phone: Basophils/100 WBC (Bld) 0.7 % Normal 0.0 - 1.0 Gisselle DelgadoP.M. Work Phone: Eosinophils (Bld) [#/Vol] 0.1 10*3/uL Normal 0.0 - 0.7 Gisselle LemosP.M. Work Phone: Eosinophils/100 WBC (Bld) 1.1 % Normal 0.0 - 5.0 Gisselle LemosP.M. Work Phone: Erythrocyte distribution width (RBC) [Ratio] 15.0 % High 11.5 - 14.0 iGsselle LemosP.M. Work Phone: Hematocrit (Bld) [Volume fraction] 38.8 % Normal 34.8 - 45.0 Gisselle LemosP.M. Work Phone: Hemoglobin (Bld) [Mass/Vol] 12.6 g/dL Normal 11.6 - 14.9 Naomi Lemos.P.M. Work Phone: Lymphocytes (Bld) [#/Vol] 1.5 10*3/uL Normal 1.0 - 3.5 Naomi Lemos.P.M. Work Phone: Lymphocytes/100 WBC (Bld) 28.5 % Normal 24.0 - 44.0 Naomi Lemos.P.M. Work Phone: MCH (RBC) [Entitic mass] 28.2 pg Normal 27.0 - 31.0 Naomi Lemos.P.M. Work Phone: MCHC (RBC) [Mass/Vol] 32.5 g/dL Normal 32.0 - 36.0 Naomi Mueller.P.M. Work Phone: MCV (RBC) [Entitic vol] 86.8 fL Normal 78.0 - 100.0 Naomi Lemos.P.M. Work Phone: Monocytes (Bld) [#/Vol] 0.5 10*3/uL Normal 0.2 - 0.8 Gisselle LemosP.M. Work Phone: Monocytes/100 WBC (Bld) 9.3 % Normal 1.7 - 9.3 Naomi Delgado.P.M. Work Phone: Neutrophils (Bld) [#/Vol] 3.1 10*3/uL Normal 1.5 - 6.7 Naomi Lemos.P.M. Work Phone: Neutrophils/100 WBC (Bld) 60.4 % Normal 36.0 - 66.0 Naomi Lemos.P.M. Work Phone: Platelet mean volume (Bld) [Entitic vol] 9.0 fL Normal 6.0 - 9.5 Gisselle LemosP.M. Work Phone: Platelets (Bld) [#/Vol] 174 10*3/uL Normal 150 - 450 Gisselle LemosP.M. Work Phone: RBC (Bld) [#/Vol] 4.47 10*6/uL Normal 3.89 - 5.30 Delores ph D D.P.M. Work Phone: WBC corrected for nucl RBC Auto (Bld) [#/Vol] 5.1 10^3/uL Normal 4.0 - 10.5 Naomi Cervantes.P.M. Work Phone: Laboratory test findingOrder ed By: SLY NIX on 08-16-2021 TSH Qn 0.22 m[IU]/L Low 0.45 - 5.33 Sly best D.P.M. Work Phone: Comment on above: Main Lab - [address] [address] Basic metabolic 2000 panelOr dered By: SLY NIX on 05-29-2021 Age [Time] 55 Years Gisselle LemosP.M. Work Phone: Anion gap [Moles/Vol] 14 mmol/L Normal 9 - 18 Asa eph Boyd, D.P.M. Work Phone: Calcium [Mass/Vol] 9.4 mg/dL Normal 8.4 - 10.2 Naomi Lemos.P.M. Work Phone: Chloride [Moles/Vol] 103 mmol/L Normal 98 - 107 Delores ph D D.P.M. Work Phone: CO2 [Moles/Vol] 26 mmol/L Normal 22 - 31 Sly Del Rio D.P.M. Work Phone: Creatinine [Mass/Vol] 0.91 mg/dL Normal 0.80 - 1.30 Naomi Mueller.P.M. Work Phone: GFR/1.73 sq M.predicted MDRD (S/P/Bld) [Vol rate/Area] Laboratory test result Normal Gisselle LemosP.M. Work Phone: Glucose [Mass/Vol] 165 mg/dL High 70 - 99 Naomi Lemos.P.M. Work Phone: Comment on above: The glucose range is based on recommendations from the [employer] [place] [employer] for fasting blood glucose range. Potassium [Moles/Vol] 4.0 mmol/L Normal 3.6 - 5.0 Asa Nix D.P.M. Work Phone: Sodium [Moles/Vol] 139 mmol/L Normal 137 - 145 Naomi Lemos.P.M. Work Phone: Urea nitrogen [Mass/Vol] 19 mg/dL Normal 7 - 21 Naomi Lemos.P.M. Work Phone: Urea/Creatinine [Mass ratio] 20.9 Ratio Normal 5.0 - 42.0 Naomi Lemos.P.M. Work Phone: Hemogram, platelets & Differ ential panel (Bld)Ordered By: SLY NIX on 05-29-2021 Basophils (Bld) [#/Vol] 0.1 10*3/uL Normal 0.0 - 0.2 Gisselle LemosP.M. Work Phone: Basophils/100 WBC (Bld) 1.0 % Normal 0.0 - 1.0 Gisselle DelgadoP.M. Work Phone: Eosinophils (Bld) [#/Vol] 0.1 10*3/uL Normal 0.0 - 0.7 Gisselle LemosP.M. Work Phone: Eosinophils/100 WBC (Bld) 1.2 % Normal 0.0 - 5.0 Gisselle LemosP.M. Work Phone: Erythrocyte distribution width (RBC) [Ratio] 16.2 % High 11.5 - 14.0 Gisselle LemosP.M. Work Phone: Hematocrit (Bld) [Volume fraction] 38.8 % Normal 34.8 - 45.0 Gisselle LemosP.M. Work Phone: Hemoglobin (Bld) [Mass/Vol] 12.8 g/dL Normal 11.6 - 14.9 Gisselle LemosP.M. Work Phone: Lymphocytes (Bld) [#/Vol] 1.6 10*3/uL Normal 1.0 - 3.5 Gisselle LemosP.M. Work Phone: Lymphocytes/100 WBC (Bld) 27.4 % Normal 24.0 - 44.0 Gisselle LemosP.M. Work Phone: MCH (RBC) [Entitic mass] 28.0 pg Normal 27.0 - 31.0 Gisselle LemosP.M. Work Phone: MCHC (RBC) [Mass/Vol] 33.0 g/dL Normal 32.0 - 36.0 Gisselle MuellerP.M. Work Phone: MCV (RBC) [Entitic vol] 84.8 fL Normal 78.0 - 100.0 Gisselle LemosP.M. Work Phone: Monocytes (Bld) [#/Vol] 0.5 10*3/uL Normal 0.2 - 0.8 Gisselle LemosP.M. Work Phone: Monocytes/100 WBC (Bld) 8.0 % Normal 1.7 - 9.3 Gisselle DelgadoP.M. Work Phone: Neutrophils (Bld) [#/Vol] 3.6 10*3/uL Normal 1.5 - 6.7 Gisselle LemosP.M. Work Phone: Neutrophils/100 WBC (Bld) 62.4 % Normal 36.0 - 66.0 Naomi Lemos.P.M. Work Phone: Platelet mean volume (Bld) [Entitic vol] 9.0 fL Normal 6.0 - 9.5 Gisselle LemosP.M. Work Phone: Platelets (Bld) [#/Vol] 183 10*3/uL Normal 150 - 450 Gisselle LemosP.M. Work Phone: RBC (Bld) [#/Vol] 4.57 10*6/uL Normal 3.89 - 5.30 Delores ph D D.P.M. Work Phone: WBC corrected for nucl RBC Auto (Bld) [#/Vol] 5.7 10^3/uL Normal 4.0 - 10.5 Naomi Cervantes.P.M. Work Phone: Laboratory test findingOrder ed By: SLY NIX on 05-29-2021 TSH Qn 0.28 m[IU]/L Low 0.45 - 5.33 Gisselle LarsonP.MMiguelina Work Phone: Comment on above: Main Lab - [place] [address] ABO and Rh group panel (Bld) Ordered By: THOMAS SILVA on 12-19-2020 Bleeding time Laboratory test result Gisselle LemosP.M. Work Phone: Note Laboratory test result Gisselle LemosP.M. Work Phone: Comment on above: Legend: ABN=AB Negative / ABP=AB Positive / AN=A Negative / AP=A Positive / BN=B Negative / BP=B Positive / ON=O Negative / OP=O Positive / POOL=Pooled / UNK=Unknown Basic metabolic 2000 panelOr derenaomi By: THOMAS SILVA on 12-19-2020 Age [Time] 55 Years Naomi Lemos.P.M. Work Phone: Anion gap [Moles/Vol] 12 mmol/L Normal 9 - 18 Asa Nix D.P.M. Work Phone: Calcium [Mass/Vol] 9.0 mg/dL Normal 8.4 - 10.2 Naomi Lemos.P.M. Work Phone: Chloride [Moles/Vol] 97 mmol/L Low 98 - 107 Delores ph D D.P.M. Work Phone: CO2 [Moles/Vol] 30 mmol/L Normal 22 - 31 Sly Del Rio D.P.M. Work Phone: Creatinine [Mass/Vol] 0.85 mg/dL Normal 0.80 - 1.30 Naomi Mueller.P.M. Work Phone: GFR/1.73 sq M.predicted MDRD (S/P/Bld) [Vol rate/Area] Laboratory test result Normal Naomi Lemos.P.M. Work Phone: Glucose [Mass/Vol] 197 mg/dL High 70 - 99 Naomi Lemos.P.M. Work Phone: Comment on above: The glucose range is based on recommendations from the [employer] [place] [employer] for fasting blood glucose range. Potassium [Moles/Vol] 3.1 mmol/L Low 3.6 - 5.0 Asa Nix D.P.M. Work Phone: Sodium [Moles/Vol] 136 mmol/L Low 137 - 145 Naomi Lemos.P.M. Work Phone: Urea nitrogen [Mass/Vol] 13 mg/dL Normal 7 - 21 Gisselle LemosP.M. Work Phone: Urea/Creatinine [Mass ratio] 15.3 Ratio Normal 5.0 - 42.0 Naomi Lemos.P.M. Work Phone: Blood type and Indirect anti body screen panel (Bld)Ordered By: THOMAS SILVA on 12-19-2020 Bleeding time Laboratory test result Gisselle LemosP.M. Work Phone: HGB A1c With MBG ValueOrdere d By: THOMAS SILVA on 12-19-2020 Average glucose Estimated from glycated hemoglobin (Bld) [Mass/Vol] 264 mg/dL Normal Naomi Lemos.P.M. Work Phone: HbA1c (Bld) [Mass fraction] 9.6 % High 4.0 - 6.0 Naomi Lemos.P.M. Work Phone: Hemogram without Platelets a nd with Manual Differential panel (Bld)Ordered By: THOMAS SILVA on 12-19-2020 Anisocytosis Ql (Bld) Laboratory test result Abnormal Gisselle LemosP.M. Work Phone: Basophils (Bld) [#/Vol] 0.0 X103 Normal 0.0 - 0.2 J greg Nix D.P.M. Work Phone: Basophils/100 WBC (Bld) 0 % Normal 0 - 1 J Naomi Menon.P.M. Work Phone: Eosinophils (Bld) [#/Vol] 0.1 X103 Normal 0.0 - 0.7 Naomi Lemos.P.M. Work Phone: Eosinophils/100 WBC (Bld) 2 % Normal 1 - 4 Gisselle LemosP.M. Work Phone: Erythrocyte distribution width (RBC) [Ratio] 16.1 % High 11.5 - 14.0 Gisselle LemosP.M. Work Phone: Hematocrit (Bld) [Volume fraction] 37.1 % Normal 34.8 - 45.0 Gisselle LemosP.M. Work Phone: Hemoglobin (Bld) [Mass/Vol] 12.3 g/dL Normal 11.6 - 14.9 Naomi Lemos.P.M. Work Phone: Lymphocytes (Bld) [#/Vol] 1.7 X103 Normal 1.0 - 3.5 Naomi Lemos.P.M. Work Phone: Lymphocytes/100 WBC (Bld) 27 % Normal 24 - 44 Naomi Lemos.P.M. Work Phone: MCH (RBC) [Entitic mass] 28.2 pg Normal 27.0 - 31.0 Naomi Lemos.P.M. Work Phone: MCHC (RBC) [Mass/Vol] 33.1 g/dL Normal 32.0 - 36.0 Naomi Mueller.P.M. Work Phone: MCV (RBC) [Entitic vol] 85.2 fL Normal 78.0 - 100.0 Naomi Lemos.P.M. Work Phone: Monocytes (Bld) [#/Vol] 0.6 X103 Normal 0.2 - 0.8 Naomi Delgado.P.M. Work Phone: Monocytes/100 WBC (Bld) 10 % High 2 - 5 J Naomi Menon.P.M. Work Phone: Neutrophils (Bld) [#/Vol] 3.7 103uL Normal 1.5 - 6.7 Naomi Lemos.P.M. Work Phone: Platelet mean volume (Bld) [Entitic vol] 8.7 fL Normal 6.0 - 9.5 Gisselle LemosPMiguelinaM. Work Phone: Platelets (Bld) [#/Vol] 163 10*3/uL Normal 150 - 450 Gisselle LemosP.M. Work Phone: RBC (Bld) [#/Vol] 4.36 10*6/uL Normal 3.89 - 5.30 Gisselle Estrella ph DP.M. Work Phone: Segmented neutrophils/100 WBC (Bld) 61 % Normal 36 - 66 Gisselle LemosP.M. Work Phone: WBC corrected for nucl RBC Auto (Bld) [#/Vol] 6.1 10^3/uL Normal 4.0 - 10.5 Gisselle CervantesP.MMiguelina Work Phone: Laboratory test findingOrder ed By: THOMAS SILVA on 12-19-2020 Bacteria identified Cx Nom (U) Laboratory test result Gisselle LemosP.MMiguelina Work Phone: Comment on above: VIRIDANS STREPTOCOCC US: IsolatedURINE CULTURE: COLONY COUNT(URINE):>100,000 Laboratory test findingon TSH Qn 0.41 m[IU]/L Low 0.45 - 5.33 Gisselle LarsonP.MMiguelina Work Phone: Comment on above: Main Lab - [address] [address] PT panel Coag (PPP)Ordered B y: THOMAS SILVA on 12-19-2020 INR Coag (PPP) [Relative time] 1.0 {INR} Normal Gisselle LemosP.M. Work Phone: Comment on above: RECOMMENDED RANGES F OR INR: Therapeutic range for standard therapy INR: 2.0-3.0 Therapeutic range for high dose therapy INR: 2.5-3.5 PT Coag (Bld) [Time] 13.0 s Normal 11.3 - 14.8 Gisselle CollinsPMiguelinaMMiguelina Work Phone: Type And ScreenOrdered By: Nickolas SILVA on 12-19-2020 Note Laboratory test result Fina LemosM. Work Phone: Comment on above: Legend: ABN=AB Negative / ABP=AB Positive / AN=A Negative / AP=A Positive / BN=B Negative / BP=B Positive / ON=O Negative / OP=O Positive / POOL=Pooled / UNK=Unknown Urine ProtocolOrdered By: EMILEE SILVA on 12-19-2020 Bacteria LM.HPF (Urine sed) [#/Area] Laboratory test result Abnormal Gisselle LemosP.M. Work Phone: Clarity (U) Laboratory test result Fina LemosM. Work Phone: Color (U) Laboratory test result Gisselle LemosP.M. Work Phone: Epithelial cells LM.HPF (Urine sed) [#/Area] Laboratory test result Abnormal Gisselle LemosP.M. Work Phone: Glucose Test strip (U) [Mass/Vol] Laboratory test result Gisselle LemosP.M. Work Phone: Hemoglobin Ql (U) Laboratory test result Abnormal Gisselle LemosP.M. Work Phone: Ketones (U) [Mass/Vol] Laboratory test result Fina LemosM. Work Phone: Leukocyte esterase Test strip Ql (U) Laboratory test result Gisselle LemosP.M. Work Phone: Mucus LM.LPF (Urine sed) [#/Area] Laboratory test result Gisselle LemosP.M. Work Phone: Nitrite Ql (U) Laboratory test result Gisselle LemosP.M. Work Phone: pH (U) 5.0 [pH] 5.0 - 8.0 Fina LemosM. Work Phone: Protein (U) [Mass/Vol] Laboratory test result Gisselle LemosP.M. Work Phone: RBC LM.HPF (Urine sed) [#/Area] Laboratory test result Gisselle LemosP.M. Work Phone: Specific gravity (U) [Rel density] 1.015 SP.GR. Gisselle LemosP.M. Work Phone: WBC LM.HPF (Urine sed) [#/Area] Laboratory test result Gisselle LemosP.M. Work Phone: Comment on above: Unless otherwise not ed, urine microscopic evaluation is normal. ECG 12-LEADon 10-07-2020 Atrial Rate [facility] P-R Interval [facility] Q-T Interval [facility] Q-T Interval (corrected) [facility] QRS Duration [facility] QTC Calculation (Bezet) [facility] [place] [facility] Ventricular Rate [facility] HGB A1C WITH MBG VALUE (EXTE RNAL)on 09-01-2019 Glucose [Mass/Vol] 204 mg/dL [facility] [employer] [facility] HbA1c (Bld) [Mass fraction] 7.9 % High 4 - 6 % [facility] Interpretation and review of laboratory results Abnormal [facility] Original Ordering Provider: David Silva III, MD [facility] ECG 12-LEADon 08-21-2019 Atrial Rate [facility] [place] P-[facility] Interval [facility] Q-T Interval [facility] Q-T Interval (corrected) [facility] QRS Duration [facility] QTC Calculation (Bezet) [facility] [place] [facility] Ventricular Rate [facility] CBC WITH AUTO DIFF (EXTERNAL )on 08-18-2019 BASO, ABSOLUTE (AUTO) 0.0 Gen [employer] Basophils/100 WBC (Bld) 0.6 % 0 - 1 % [employer] Eosinophils (Bld) [#/Vol] 0.1 10*3/uL Andreina [employer] [facility] Eosinophils/100 WBC (Bld) 1.8 % 0 - 5 % [facility] Erythrocyte distribution width (RBC) [Ratio] 17.0 % High 11.5 - 14 % Andreina [employer] [facility] Hematocrit (Bld) [Volume fraction] 36.5 % 34.8 - 45 % [facility] Hemoglobin (Bld) [Mass/Vol] 11.8 g/dL 11.6 - 14.9 g/dL [facility] Interpretation and review of laboratory results Abnormal [facility] Lymphocytes (Bld) [#/Vol] 1.6 10*3/uL [facility] Lymphocytes/100 WBC (Bld) 24.3 % 24 - 44 % [facility] MCH (RBC) [Entitic mass] 32.3 g/dL 32 - 36 g/dL [facility] MCH (RBC) [Entitic mass] 27.2 pg 27 - 31 pg [facility] MCV (RBC) [Entitic vol] 84.1 fL 78 - 100 fL [facility] Monocytes (Bld) [#/Vol] 0.6 10*3/uL [facility] Monocytes/100 WBC (Bld) 9.5 % High 1.7 - 9.3 % [facility] NEUTROPHILS, ABSOLUTE (AUTO) 4.3 [facility] Neutrophils/100 WBC (Bld) 63.8 % 36 - 66 % [facility] Platelet mean volume (Bld) [Entitic vol] 9.2 fL 6 - 9.5 fl [facility] Platelets (Bld) [#/Vol] 190 10*3/uL [facility] RBC (Bld) [#/Vol] 4.34 10*6/uL [facility] WBC (Bld) [#/Vol] 6.7 10*3/uL [facility] Original Ordering Provider: Ha Avelar [facility] COMPREHENSIVE METABOLIC PANE L (EXTERNAL)on 08-18-2019 Age - Reported 54 Years [facility] Original Ordering Provider: Ha Avelar [facility] BMP with eGFRon 05-30-2018 Age Reported 52 years Normal [place] Comment on above: Performed By: #### 2 [id number] ####[facility],[address] [place] [address] Anion gap 3 molar conc 11 mmol/L Normal 10 - 20 [facility] Comment on above: Performed By: #### 2 [id number] ####[facility],[address] [place] [address] Calcium mass conc 9.6 mg/dL Normal 8.6 - 10.2 [facility] Comment on above: Performed By: #### 2 [id number] ####[facility],[address] [place], [place] [id number] Chloride molar conc 100 mmol/L Normal 98 - 107 [facility] Comment on above: Performed By: #### 2 [id number] ####[facility],[address] [place], [place] [id number] CO2 molar conc 29.5 mmol/L Normal 21.0 - 31.0 [facility] Comment on above: Performed By: #### 2 [id number] ####[facility],[address] [place], [place] [id number] Creatinine mass conc 0.9 mg/dL Normal 0.6 - 1.2 [facility] Comment on above: Performed By: #### 2 [id number] ####[facility],[address] [place] [address] GFR/1.73 sq M predicted among non-blacks MDRD vol rate/area (S/P/Bld) Normal [facility] Comment on above: Result Comment: BASI C METABOLIC PANEL Performed By: #### 2 [id number] ####[facility],[address] [place] [address] GFR/1.73 sq M predicted among non-blacks MDRD vol rate/area (S/P/Bld) mL/min/{1.73_m2} Normal 60 - 999 [facility] Comment on above: Result Comment: ACCO RDING TO THE NATIONAL KIDNEY DISEASE EDUCATION PROGRAM(NKDE), A NORMAL eGFRIS A VALUE GREATER THAN OR EQUAL TO 60 ML/MIN/1.73 SQ METERS.CHRONIC KIDNEY DISEASE: <60mL/MIN/1.73 SQ METERSKIDNEY FAILURE: <15mL/MIN/1.73 SQ METERSTHIS TEST SHOULD ONLY BE USED FOR PATIENTS 18 YEARS OF AGE AND OLDER. Performed By: #### 2 [id number] ####[facility],[address],[place] [address] Glucose mass conc 317 mg/dL High 74 - 106 [facility] Comment on above: Performed By: #### 2 20653 ####[facility],[address] [place], [place] [id number] Potassium molar conc 4.3 mmol/L Normal 3.5 - 5.1 [facility] Comment on above: Performed By: #### 2 [id number] ####[facility],[address] [place], [place] [id number] Sodium molar conc 136 mmol/L Normal 136 - 145 [facility] Comment on above: Performed By: #### 2 93048 ####[facility],[address] [place] [address] Urea nitrogen mass conc 14 mg/dL Normal 6 - 20 [facility] Comment on above: Performed By: #### 2 42605 ####[facility],[address] [place] [address] CBCon 05-30-2018 Basophils Auto #/vol (Bld) 0.10 x10EE3/UL Normal 0.00 - 0.10 [facility] Comment on above: Performed By: #### 2 97912 ####[facility],[address] [place] [address] Basophils/100 WBC Auto (Bld) 1.0 % Normal 0.0 - 2.0 [facility] Comment on above: Performed By: #### 2 69961 ####[facility],[address] [place] [address] CBC Normal [facility] Comment on above: Result Comment: CBC- COMPLETE BLOOD COUNT Performed By: #### 2 56883 ####[place] [address] Eosinophils Auto #/vol (Bld) 0.10 x10EE3/UL Normal 0.00 - 0.50 [facility] Comment on above: Performed By: #### 2 39898 ####[facility],[address] [place] [id number] Eosinophils/100 WBC Auto (Bld) 1.4 % Normal 0.0 - 7.0 [facility] Comment on above: Performed By: #### [id number] ####[facility],[address] [place] [id number] Erythrocyte distribution width Auto Ratio (RBC) 16.6 % High 12.0 - 15.6 [facility] Comment on above: Performed By: #### [id number] ####[facility],[address] [place] [address] Hematocrit Auto Volume Fraction (Bld) 34.5 % Normal 34.0 - 46.0 [facility] Comment on above: Performed By: #### 2 [id number] ####[facility],[address] [place] [address] Hemoglobin mass conc (Bld) 11.4 g/dL Low 12.0 - 16.0 [facility] Comment on above: Performed By: #### 2 08255 ####[facility],[address] [place] [address] 13861 Lymphocytes Auto #/vol (Bld) 1.30 x10EE3/UL Normal 0.80 - 2.80 [facility] Comment on above: Performed By: #### 2 16487 ####[facility],[address] [place] [address] 16619 Lymphocytes/100 WBC Auto (Bld) 18.5 % Low 20.0 - 45.0 [facility] Comment on above: Performed By: #### 2 18776 ####[facility],[address] [place] [address] 61366 MANUAL DIFF N/A Normal [facility] Comment on above: Performed By: #### 2 33087 ####[facility],[address] [place] [address] 95863 MCH Auto Entitic mass (RBC) 26 pg Low 27 - 33 [facility] Comment on above: Performed By: #### 2 63053 ####[facility],[address] [place] [address] 87784 MCHC Auto mass conc (RBC) 33 X10 3 Normal 32 - 36 [facility] Comment on above: Performed By: #### 2 79515 ####[facility],[address] [place] [address] 35497 MCV Auto Entitic volume (RBC) 80 fL Normal 80 - 99 [facility] Comment on above: Performed By: #### 2 83861 ####[facility],[address] [place] [address] 92027 Monocytes Auto #/vol (Bld) 0.50 x10EE3/UL Normal 0.20 - 1.00 [facility] Comment on above: Performed By: #### 2 15259 ####[facility],[address] [place] [address] 49797 MONOS % 7.1 % Normal 0.0 - 10.0 [facility] Comment on above: Performed By: #### 2 46405 ####[facility],[address] [place], [place] [id number] Morphology Interp Barak (Bld) N/A Normal [facility] Comment on above: Result Comment: {CD] Performed By: #### 2 75402 ####[facility],[address] [place] [address] 89358 Neutrophils Auto #/vol (Bld) 5.20 x10EE3/UL Normal 1.50 - 7.10 [facility] Comment on above: Performed By: #### 2 23655 ####[facility],[address] [place] [address] 39820 Neutrophils/100 WBC Auto (Bld) 72.0 % Normal 46.0 - 76.0 [facility] Comment on above: Performed By: #### 2 57215 ####[facility],[address] [place], [place] [phone] Platelet mean volume Auto Entitic volume (Bld) 9.4 fL Normal 6.6 - 10.5 [facility] Comment on above: Result Comment: AUTO MATED DIFFERENTIAL Performed By: #### 2 66773 ####[facility],[address] [place] [address] Platelets Auto #/vol (Bld) 195 x10EE3/UL Normal 150 - 450 [facility] Comment on above: Performed By: #### 2 55131 ####[facility],[address] [place] [address] RBC Auto #/vol (Bld) 4.33 x 10EE6/UL Normal 4.10 - 5.3 0 [facility] Comment on above: Performed By: #### 2 63122 ####[facility],[address] [place] [address] WBC Auto #/vol (Bld) 7.3 x 10EE3/UL Normal 4.5 - 10.8 [facility] Comment on above: Performed By: #### 2 25083 ####[facility],[address] [place] [address] HGB A1Con 05-30-2018 Hemoglobin A1c/Hemoglobin.total mass fraction (Bld) 9.4 % High 4.4 - 6.4 [place] Comment on above: Result Comment: {HB] {A1] Performed By: #### 2 90241 ####[facility],[address] [place] [address] Basic Panelon 03-12-2018 Creatinine [Mass/Vol] 0.73 mg/dL Normal 0.51-0.95 [facility] Comment on above: Performed By: #### P 8 #### [place] [address] Anion gap [Moles/Vol] 9 mmol/L Normal 8-[address] [facility] Comment on above: Performed By: #### P 8 #### [place] [address] Calcium [Mass/Vol] 8.7 mg/dL Normal 8.5-10.1 [facility] Comment on above: Performed By: #### P 8 #### [facility] [address] [place], [place] [address] CO2 [Moles/Vol] 29 mmol/L Normal 21-32 [facility] Comment on above: Performed By: #### P 8 #### [facility] [address] [place], [place] [address] Glucose [Mass/Vol] 173 mg/dL High 70-99 [facility] Comment on above: Performed By: #### P 8 #### [facility] [address] [place], [place] [address] Urea nitrogen [Mass/Vol] 18 mg/dL Normal 7-18 [facility] Comment on above: Performed By: #### P 8 #### [facility] [address] [place] [id number] Chloride [Moles/Vol] 102 mmol/L Normal 98-107 [facility] Comment on above: Performed By: #### P 8 #### [facility] [address] [place], [place] [address] Potassium [Moles/Vol] 4.1 mmol/L Normal 3.5-5.1 [facility] Comment on above: Performed By: #### P 8 #### [facility] [address] [place], [place] [address] Sodium [Moles/Vol] 136 mmol/L Normal 136-145 [facility] Comment on above: Performed By: #### P 8 #### [facility] [address] [place], [place] [address] Hemogramon 03-12-2018 Erythrocyte distribution width (RBC) [Ratio] 15.6 % High 11.7-14.4 [facility] Comment on above: Performed By: #### C BC1 #### [facility] [address] [place], [place] [address] Hematocrit (Bld) [Volume fraction] 32.5 % Low 34.1-44.9 [facility] Comment on above: Performed By: #### C BC1 #### [facility] [address] [place], [place] [address] Hemoglobin (Bld) [Mass/Vol] 9.9 g/dL Low 11.2-15.7 [facility] Comment on above: Performed By: #### C BC1 #### [facility] [address] [place] [address] MCH (RBC) [Entitic mass] 26.3 pg Normal 25.6-32.2 [facility] Comment on above: Performed By: #### C BC1 #### [facility] [address] [place] [address] MCHC (RBC) [Mass/Vol] 30.5 % Low 31.6-34.8 [facility] Comment on above: Performed By: #### C BC1 #### [facility] [address] [place] [address] MCV (RBC) [Entitic vol] 86.2 fL Normal 79.4-94.8 [facility] Comment on above: Performed By: #### C BC1 #### [facility] [address] [place] [address] Platelet mean volume (Bld) [Entitic vol] 10.7 fL Normal 9.4-12.3 [facility] Comment on above: Performed By: #### C BC1 #### [facility] [address] [place] [address] Platelets (Bld) [#/Vol] 209 thou/cmm Normal 182-369 [facility] Comment on above: Performed By: #### C BC1 #### [facility] [address] [place] [address] RBC (Bld) [#/Vol] 3.77 mil/cmm Low 3.93-5.22 [facility] Comment on above: Performed By: #### C BC1 #### [facility] [address] [place] [address] RDW SD 48.6 fl High 36.4-46.3 [facility] Comment on above: Performed By: #### C BC1 #### [facility] [address] [place] [address] WBC (Bld) [#/Vol] 8.31 thou/cmm Normal 3.98-10.04 [facility] Comment on above: Performed By: #### C BC1 #### [place] [id number] MDRD GFRon 03-12-2018 GFR/1.73 sq M predicted among non-blacks MDRD (S/P/Bld) [Vol rate/Area] mL/min/{1.73_m2} Normal >60mL/min/1.7 3m2 [facility] Comment on above: Result Comment: If t he patient is , multiply the result by 1.210. Performed By: #### G FR #### [place] [id number] Office Visit: Diabetes follo w upon 06-11-2017 Documentation of current medications (procedure) Done Invalid Interpretation Code [facility] Work Phone: PROGRESSon 03-29-2017 PROGRESS HNO ID: [id number]: Brionna (Ct) Adri, CTService: (none)Author Type: Clinical TechnicianType: Progress NotesFiled: 03/29/2017 12:10 PMNote Text:NAME:Michelle CoteDATE: March 29, 2017[facility] [id number] Extremity X-Ray(s): Foot, Left and Wt. Bearing COMPLETEDTECH ID SIGN: BRIONNA RAMÍREZ [facility] [place] [facility] XR FOOT 3V AP/LAT/OBL LTon 0 03-29-2017 XR FOOT 3V AP/LAT/OBL LT * * *Final Report* * *DATE OF EXAM: Mar 29 2017 10:50AM ELVI 5336 - XR FOOT 3V AP/LAT/OBL LT / REASON: [id number], unspecified * * * * Physician Interpretation * * * * HISTORY: PAIN-IMAGES PER DR PROTOCOL. Pain, unspecified .TECHNIQUE: XR FOOT 3V AP/LAT/OBL LT Laterality: LEFT Number of different views (projections): 3COMPARISON: NoneRESULT:Normal alignment on the standing projections. No fracture, no focal active periostitis. Some chronic benign remodeling of the dorsal aspect of the navicular bone. Joint spaces are maintained.IMPRESSIO N:Benign chronic remodeling of the navicular bone. No acute bony process.Transcriptio nist: PSCB Transcribe Date/Time: Mar 29 2017 11:49ADictated by : JORDY DE OLIVEIRA MDThis examination was interpreted and the report reviewed and electronically signed by: JORDY DE OLIVEIRA MD on Mar 29 2017 11:50AM [id number] [facility] [place] [facility] Office Visit: Diabetes follo w upon 11-27-2016 Alcoholism counseling (procedure) no Invalid Interpretation Code [facility] Work Phone: Dietary management education, guidance, and counseling (procedure) yes Invalid Interpretation Code [facility] Work Phone: Fall risk assessment Fall risk assessment Invali d Interpretation Code [facility] Work Phone: Tobacco smoking status NHIS Never Invalid Interpretation Code [facility] Work Phone: Tobacco use CPHS Never smoker Invalid Interpretation Code [facility] Work Phone: Chart Maintenanceon 09-11-19 17 Triglyceride 84 mg/dL Invalid Interpretation Code [facility] Work Phone: Lab Report: Vitamin D 1,25-D ihydroxyon 09-07-2016 VITD 1,25 03946 48.7 Invalid Interpretation Code 19.9-79.3 [facility] Work Phone: Lab Report: Comprehensive Nv tabolic Profilon 09-04-2016 Alanine aminotransferase (ALT) 24 U/L Invalid Interpretation Code 12-78 [facility] Work Phone: Albumin 3.7 g/dL Invalid Interpretation Code 3.4-5.0 [facility] Work Phone: Albumin/Globulin Ratio 1 {ratio} Invalid Interpretation Code 0.9-2.4 [facility] Work Phone: Alkaline phosphatase (ALP) 105 U/L Invalid Interpretation Code 45-117 [facility] Work Phone: Anion gap 8 mmol/L Invalid Interpretation Code 5-15 [facility] Work Phone: Aspartate aminotransferase (AST) 14 U/L Low 15-37 [facility] Work Phone: Bilirubin (total) 0.40 mg/dL Invalid Interpretation Code 0.20-1.00 [facility] Work Phone: BUN/Creatinine Ratio 12.6 RATIO Invalid Interpretation Code 10-20 [facility] Work Phone: Calcium 8.6 mg/dL Invalid Interpretation Code 8.5-10.1 [facility] Work Phone: Chloride 101 mmol/L Invalid Interpretation Code 98-107 [facility] Work Phone: CO2 28.0 mmol/L Invalid Interpretation Code 21.0-32.0 [facility] Work Phone: Creatinine 0.71 mg/dL Invalid Interpretation Code 0.55-1.02 [facility] Work Phone: eGFR (non-black) 111 mL/min/{1.73_m2} Invalid Interpretation Code >60 [facility] Work Phone: eGFR (non-black) 92 mL/min/{1.73_m2} Invalid Interpretation Code >60 [facility] Work Phone: Globulin 3.7 g/dL High 2.3-3.5 [facility] Work Phone: Glucose mass conc 111 mg/dL High 70-110 [facility] Work Phone: Potassium molar conc 4.0 mmol/L Invalid Interpretation Code 3.5-5.1 [facility] Work Phone: Protein 7.4 g/dL Invalid Interpretation Code 6.4-8.2 [facility] Work Phone: Sodium 137 mmol/L Invalid Interpretation Code 136-145 [facility] Work Phone: Urea nitrogen 9 mg/dL Invalid Interpretation Code 7-18 [facility] Work Phone: Lab Report: Hemoglobin A1con 09-04-2016 Hemoglobin A1c/Hemoglobin.total mass fraction (Bld) 6.7 % High 4.2-6.3 [facility] Work Phone: Lab Report: Lipid Profileon 09-04-2016 Cholesterol 122 mg/dL Invalid Interpretation Code 200 [facility] Work Phone: HDL Cholesterol 43 mg/dL Invalid Interpretation Code [facility] Work Phone: LDL Cholesterol 57 mg/dL Invalid Interpretation Code 0-130 [facility] Work Phone: Triglyceride 108 mg/dL Invalid Interpretation Code [facility] Work Phone: very low density lipoproteins 22 mg/dL Invalid Interpretation Code 5-40 [facility] Work Phone: Lab Report: Microalb:Creat R atio,Random URon 09-04-2016 ACR (microalbumin/creatinin e) ratio 5.3 MG/G CRE Invalid Interpretation Code <30 mg/g CRE [facility] Work Phone: Urine, creatinine 153.00 mg/dL Invalid Interpretation Code NO RANGE EST. [facility] Work Phone: Urine, microalbumin 0.81 mg/dL Invalid Interpretation Code Units converted. See lab report for original value. [facility] Work Phone: Lab Report: Thyroid Stim Hor concepcion (TSH)on 09-04-2016 Thyroid stimulating hormone (TSH) 0.68 u[iU]/mL Invalid Interpretation Code 0.358-3.74 [facility] Work Phone: Office Visit: Transition of care CCFon 09-04-2016 Adult depression screening assessment Adult depression screening assessment Invalid Interpretation Code [facility] Work Phone: Office Visit: Transition of care [facility]CFon 07-16-2016 Breast Mammogram screening Normal Bilateral Invalid Interpretation Code [facility] Work Phone: EKG Report: [facility] ECG Obse rvationson 03-16-2014 QTc Cantu 470 ms Invalid Interpretation Code [facility] Work Phone: Replaced Document: [facility] E CG Observationson 03-16-2014 EKG QRS axis 66 deg Invalid Interpretation Code [facility] Work Phone: Interpretation Electronic ventricular pacemaker -possibly demand type Pacemaker ECG, No further analysis INSUFFICIENT DATA Invalid Interpretation Code [facility] Work Phone: P [place] 30 deg Invalid Interpretation Code [facility] Work Phone: MD Interval 98 ms Invalid Interpretation Code [facility] Work Phone: Pulse (Heart Rate) 68 /min Invalid Interpretation Code [facility] Work Phone: Pulse (Heart Rate) 470 ms Invalid Interpretation Code [facility] Work Phone: QRS Duration 120 ms Invalid Interpretation Code [facility] Work Phone: QT Interval new path ms Invalid Interpretation Code [facility] Work Phone: T [place] 114 deg Invalid Interpretation Code [facility] Work Phone: Clinical Lists Update: 04-22-2013 Erythrocytes (RBC) 3.79 10*6/uL [facility] Work Phone: Hematocrit (HCT) 33.6 % Low [facility] Work Phone: Hemoglobin mass conc (Bld) 11.0 g/dL Low [facility] Work Phone: MCH 29.0 pg Invalid Interpretation Code [facility] Work Phone: MCHC mass conc (RBC) 32.7 g/dL Invalid Interpretation Code [facility] Work Phone: MCV 88.7 fL Invalid Interpretation Code [facility] Work Phone: Platelets 173 10*3/mm3 Invalid Interpretation Code [facility] Work Phone: WBC (Leukocytes) 8.9 10*3/uL Invalid Interpretation Code [facility] Work Phone: Clinical Lists Update: 04-16-2013 Thyroxine (T4) 8.8 ug/dL Invalid Interpretation Code [facility] Work Phone: Office Visit: Transition of care CCFon 07-15-2012 Colonoscopy (procedure) Colonoscopy (procedure) Invalid Interpretation Code [facility] Work Phone: ECG B/O W INTERP (MED OFFICE ) [facility] Vital Signs Date Time Vital Sign Value Performing Clinician Facility 12-10-2024 10:22-0400 Body height 175.[address] Lisseth Peñaloza MD Work Phone: [facility] 12-10-2024 10:22-0400 Body mass index (BMI) [Ratio] 38.4 kg/m2 Dr. Lisseth Peñaloza MD Work Phone: [facility] 12-10-2024 10:22-0400 Body weight 117.[address] Lisseth Peñaloza MD Work Phone: [facility] 12-10-2024 10:22-0400 Diastolic blood pressure 78 mm[Hg] Dr. Lisseth Peñaloza MD Work Phone: [facility] 12-10-2024 10:22-0400 Heart rate 83 /min Dr. Lisseth Peñaloza MD Work Phone: [facility] 12-10-2024 10:22-0400 SaO2% (BldA) [Mass fraction] 92 % Dr. Lisseth Peñaloza MD Work Phone: [facility] 12-10-2024 10:22-0400 Systolic blood pressure 128 mm[Hg] Dr. Lisseth Peñaloza MD Work Phone: [facility] 12-09-2024 11:12-0400 Body height 175.[address] Lisseth Peñaloza MD Work Phone: [facility] 12-09-2024 11:12-0400 Body mass index (BMI) [Ratio] 38 kg/m2 Dr. Lisseth Peñaloza MD Work Phone: [facility] 12-09-2024 11:12-0400 Body temperature 96.7 [degF] Dr. Lisseth Peñaloza MD Work Phone: [facility] 12-09-2024 11:12-0400 Body weight 116.[address] Lisseth Peñaloza MD Work Phone: [facility] 12-09-2024 11:12-0400 Diastolic blood pressure 64 mm[Hg] Dr. Lisseth Peñaloza MD Work Phone: [facility] 12-09-2024 11:12-0400 Heart rate 105 /min Dr. Lisseth Peñaloza MD Work Phone: [facility] 12-09-2024 11:12-0400 Respiratory rate 16 /min Dr. Lisseth Peñaloza MD Work Phone: [facility] 12-09-2024 11:12-0400 SaO2% (BldA) [Mass fraction] 93 % Dr. Lisseth Peñaloza MD Work Phone: [facility] 12-09-2024 11:12-0400 Systolic blood pressure 118 mm[Hg] Dr. Lisseth Peñaloza MD Work Phone: [facility] 11-28-2024 03:21-0400 Body temperature 98.1 [degF] No Primary Care Physician [facility] 11-28-2024 03:21-0400 Diastolic blood pressure 71 mm[Hg] No Primary Care Physician [facility] 11-28-2024 03:21-0400 Heart rate 81 /min No Primary Care Physician [facility] 11-28-2024 03:21-0400 Respiratory rate 16 /min No Primary Care Physician [facility] 11-28-2024 03:21-0400 SaO2% (BldA) [Mass fraction] 99 % No Primary Care Physician [facility] 11-28-2024 03:21-0400 Systolic blood pressure 148 mm[Hg] No Primary Care Physician [facility] 11-27-2024 21:28-0400 Body height 175.26 cm No Primary Care Physician [facility] 11-27-2024 21:28-0400 Body mass index (BMI) [Ratio] 39.7 kg/m2 No Primary Care Physician [facility] 11-27-2024 21:28-0400 Body weight 122.01 kg No Primary Care Physician [facility] 11-26-2024 14:47-0400 Body temperature 98 [degF] No Primary Care Physician [facility] 11-26-2024 14:47-0400 Diastolic blood pressure 65 mm[Hg] No Primary Care Physician [facility] 11-26-2024 14:47-0400 Heart rate 74 /min No Primary Care Physician [facility] 11-26-2024 14:47-0400 Respiratory rate 14 /min No Primary Care Physician [facility] 11-26-2024 14:47-0400 SaO2% (BldA) [Mass fraction] 95 % No Primary Care Physician [facility] 11-26-2024 14:47-0400 Systolic blood pressure 116 mm[Hg] No Primary Care Physician [facility] 11-26-2024 03:42-0400 Body mass index (BMI) [Ratio] 40.4 kg/m2 No Primary Care Physician [facility] 11-26-2024 03:42-0400 Body weight 124.3 kg No Primary Care Physician [facility] 11-25-2024 14:58-0400 Body height 175.26 cm No Primary Care Physician [facility] 11-23-2024 08:10-0400 Inhaled oxygen flow rate 2 L/min No Primary Care Physician [facility] 11-20-2024 18:00-0400 Body temperature 101.6 [degF] No Primary Care Physician [facility] 11-20-2024 18:00-0400 Diastolic blood pressure 75 mm[Hg] No Primary Care Physician [facility] 11-20-2024 18:00-0400 Heart rate 126 /min No Primary Care Physician [facility] 11-20-2024 18:00-0400 Inhaled oxygen flow rate 2 L/min No Primary Care Physician [facility] 11-20-2024 18:00-0400 Respiratory rate 28 /min No Primary Care Physician [facility] 11-20-2024 18:00-0400 SaO2% (BldA) [Mass fraction] 94 % No Primary Care Physician [facility] 11-20-2024 18:00-0400 Systolic blood pressure 120 mm[Hg] No Primary Care Physician [facility] 11-20-2024 14:13-0400 Body height 175.26 cm No Primary Care Physician [facility] 11-20-2024 14:13-0400 Body mass index (BMI) [Ratio] 40.6 kg/m2 No Primary Care Physician [facility] 11-20-2024 14:13-0400 Body weight 125 kg No Primary Care Physician [facility] 11-07-2024 19:47-0400 Body temperature 98.9 [degF] No Primary Care Physician [facility] 11-07-2024 19:47-0400 Diastolic blood pressure 69 mm[Hg] No Primary Care Physician [facility] 11-07-2024 19:47-0400 Heart rate 70 /min No Primary Care Physician [facility] 11-07-2024 19:47-0400 Respiratory rate 14 /min No Primary Care Physician [facility] 11-07-2024 19:47-0400 SaO2% (BldA) [Mass fraction] 95 % No Primary Care Physician [facility] 11-07-2024 19:47-0400 Systolic blood pressure 127 mm[Hg] No Primary Care Physician [facility] 11-07-2024 19:15-0400 Body mass index (BMI) [Ratio] 38.5 kg/m2 No Primary Care Physician [facility] 11-07-2024 19:15-0400 Body weight 118.16 kg No Primary Care Physician [facility] 11-04-2024 07:37-0400 Body mass index (BMI) [Ratio] 38.8 kg/m2 No Primary Care Physician [facility] 11-04-2024 07:37-0400 Body weight 119.29 kg No Primary Care Physician [facility] 11-04-2024 07:37-0400 Diastolic blood pressure 66 mm[Hg] No Primary Care Physician [facility] 11-04-2024 07:37-0400 Heart rate 75 /min No Primary Care Physician [facility] 11-04-2024 07:37-0400 Respiratory rate 18 /min No Primary Care Physician [facility] 11-04-2024 07:37-0400 SaO2% (BldA) [Mass fraction] 93 % No Primary Care Physician [facility] 11-04-2024 07:37-0400 Systolic blood pressure 126 mm[Hg] No Primary Care Physician [facility] 10-19-2024 10:26-0400 Body mass index (BMI) [Ratio] 39.1 kg/m2 No Primary Care Physician [facility] 10-19-2024 10:26-0400 Body temperature 97.6 [degF] No Primary Care Physician [facility] 10-19-2024 10:26-0400 Body weight 120.2 kg No Primary Care Physician [facility] 10-19-2024 10:26-0400 Diastolic blood pressure 80 mm[Hg] No Primary Care Physician [facility] 10-19-2024 10:26-0400 Heart rate 73 /min No Primary Care Physician [facility] 10-19-2024 10:26-0400 Respiratory rate 14 /min No Primary Care Physician [facility] 10-19-2024 10:26-0400 SaO2% (BldA) [Mass fraction] 98 % No Primary Care Physician [facility] 10-19-2024 10:26-0400 Systolic blood pressure 134 mm[Hg] No Primary Care Physician [facility] 10-15-2024 10:10-0400 Body mass index (BMI) [Ratio] 39 kg/m2 No Primary Care Physician [facility] 10-15-2024 10:10-0400 Body weight 119.91 kg No Primary Care Physician [facility] 10-15-2024 10:10-0400 Diastolic blood pressure 74 mm[Hg] No Primary Care Physician [facility] 10-15-2024 10:10-0400 Heart rate 77 /min No Primary Care Physician [facility] 10-15-2024 10:10-0400 SaO2% (BldA) [Mass fraction] 94 % No Primary Care Physician [facility] 10-15-2024 10:10-0400 Systolic blood pressure 130 mm[Hg] No Primary Care Physician [facility] 09-07-2024 11:22-0500 Body mass index (BMI) [Ratio] 40.3 kg/m2 No Primary Care Physician [facility] 09-07-2024 11:22-0500 Body temperature 97.8 [degF] No Primary Care Physician [facility] 09-07-2024 11:22-0500 Body weight 123.83 kg No Primary Care Physician [facility] 09-07-2024 11:22-0500 Diastolic blood pressure 74 mm[Hg] No Primary Care Physician [facility] 09-07-2024 11:22-0500 Heart rate 85 /min No Primary Care Physician [facility] 09-07-2024 11:22-0500 Respiratory rate 17 /min No Primary Care Physician [facility] 09-07-2024 11:22-0500 SaO2% (BldA) [Mass fraction] 97 % No Primary Care Physician [facility] 09-07-2024 11:22-0500 Systolic blood pressure 132 mm[Hg] No Primary Care Physician [facility] 08-05-2024 14:23-0500 Body mass index (BMI) [Ratio] 39.9 kg/m2 No Primary Care Physician [facility] 08-05-2024 14:23-0500 Body temperature 97.9 [degF] No Primary Care Physician [facility] 08-05-2024 14:23-0500 Body weight 122.46 kg No Primary Care Physician [facility] 08-05-2024 14:23-0500 Diastolic blood pressure 80 mm[Hg] No Primary Care Physician [facility] 08-05-2024 14:23-0500 Heart rate 103 /min No Primary Care Physician [facility] 08-05-2024 14:23-0500 Respiratory rate 16 /min No Primary Care Physician [facility] 08-05-2024 14:23-0500 SaO2% (BldA) [Mass fraction] 93 % No Primary Care Physician [facility] 08-05-2024 14:23-0500 Systolic blood pressure 138 mm[Hg] No Primary Care Physician [facility] 02-26-2024 14:00-0400 Body height 175.3 cm Pharm [facility] 02-26-2024 14:00-0400 Body mass index (BMI) [Ratio] 36.03 kg/m2 Pharm [facility] 02-26-2024 14:00-0400 Body temperature 97.59 [degF] Pharm [facility] 02-26-2024 14:00-0400 Body weight 110.68 kg Pharm [facility] 02-26-2024 14:00-0400 Diastolic blood pressure 78 mm[Hg] Pharm [facility] 02-26-2024 14:00-0400 Heart rate 72 /min Pharm [facility] 02-26-2024 14:00-0400 Respiratory rate 16 /min Pharm [facility] 02-26-2024 14:00-0400 SaO2% (BldA) [Mass fraction] 97 % Pharm [facility] 02-26-2024 14:00-0400 Systolic blood pressure 125 mm[Hg] Pharm [facility] 01-29-2024 11:21-0400 Body height 175.3 cm Pharm [facility] 01-29-2024 11:21-0400 Body mass index (BMI) [Ratio] 35.59 kg/m2 Pharm [facility] 01-29-2024 11:21-0400 Body temperature 96.6 [degF] Pharm [facility] 01-29-2024 11:21-0400 Body weight 109.32 kg Pharm [facility] 01-29-2024 11:21-0400 Diastolic blood pressure 69 mm[Hg] Pharm [facility] 01-29-2024 11:21-0400 Heart rate 90 /min Pharm [facility] 01-29-2024 11:21-0400 Systolic blood pressure 113 mm[Hg] Pharm [facility] 12-24-2023 13:18-0400 Body height 175.3 cm Manny Evans MD Work Phone: [facility] 12-24-2023 13:18-0400 Body mass index (BMI) [Ratio] 35.24 kg/m2 Manny Evans MD Work Phone: [facility] 12-24-2023 13:18-0400 Body temperature 97.59 [degF] Manny Evans MD Work Phone: [facility] 12-24-2023 13:18-0400 Body weight 108.23 kg Manny Evans MD Work Phone: [facility] 12-24-2023 13:18-0400 Diastolic blood pressure 63 mm[Hg] Manny Evans MD Work Phone: [facility] 12-24-2023 13:18-0400 Heart rate 77 /min Manny Evans MD Work Phone: [facility] 12-24-2023 13:18-0400 Respiratory rate 16 /min Manny Evans MD Work Phone: [facility] 12-24-2023 13:18-0400 SaO2% (BldA) [Mass fraction] 97 % Manny Evans MD Work Phone: [facility] Comment on above: RA 12-24-2023 13:18-0400 Systolic blood pressure 119 mm[Hg] Manny Evans MD Work Phone: [facility] 11-14-2023 13:20-0400 Body height 175.3 cm Pharm [facility] 11-14-2023 13:20-0400 Body mass index (BMI) [Ratio] 35.29 kg/m2 Pharm [facility] 11-14-2023 13:20-0400 Body temperature 97.3 [degF] Pharm [facility] 11-14-2023 13:20-0400 Body weight 108.41 kg Pharm [facility] 11-14-2023 13:20-0400 Diastolic blood pressure 71 mm[Hg] Pharm [facility] 11-14-2023 13:20-0400 Heart rate 84 /min Pharm [facility] 11-14-2023 13:20-0400 Systolic blood pressure 119 mm[Hg] Pharm [facility] 10-30-2023 13:51-0400 Body height 175.3 cm Pharm [facility] 10-30-2023 13:51-0400 Body temperature 97.39 [degF] Pharm [facility] 10-30-2023 13:51-0400 Body weight 107.5 kg Pharm [facility] 10-30-2023 13:51-0400 Diastolic blood pressure 83 mm[Hg] Pharm [facility] 10-30-2023 13:51-0400 Systolic blood pressure 130 mm[Hg] Pharm [facility] 10-06-2023 13:22-0400 Body height 175.26 cm [facility] 10-06-2023 13:22-0400 Body temperature 98.5 [degF] [facility] 10-06-2023 13:22-0400 Diastolic blood pressure 100 mm[Hg] [facility] 10-06-2023 13:22-0400 Heart rate 75 /min [facility] 10-06-2023 13:22-0400 Respiratory rate 18 /min [facility] 10-06-2023 13:22-0400 SaO2% (BldA) [Mass fraction] 95 % [facility] 10-06-2023 13:22-0400 Systolic blood pressure 145 mm[Hg] [facility] 09-12-2023 15:40-0500 Body height 175.3 cm Pharm [facility] 09-12-2023 15:40-0500 Body temperature 96.8 [degF] Pharm [facility] 09-12-2023 15:40-0500 Body weight 109.32 kg Pharm [facility] 09-12-2023 15:40-0500 Diastolic blood pressure 70 mm[Hg] Pharm [facility] 09-12-2023 15:40-0500 Systolic blood pressure 115 mm[Hg] Pharm [facility] 08-30-2023 14:37-0500 Body height 175.3 cm Williams Rubin MD Work Phone: [facility] 08-30-2023 14:37-0500 Body temperature 97 [degF] Williams Rubin MD Work Phone: [facility] 08-30-2023 14:37-0500 Body weight 106.96 kg Williams Rubin MD Work Phone: [facility] 08-30-2023 14:37-0500 Diastolic blood pressure 77 mm[Hg] Williams Rubin MD Work Phone: [facility] 08-30-2023 14:37-0500 Heart rate 81 /min Williams Rubin MD Work Phone: [facility] 08-30-2023 14:37-0500 SaO2% (BldA) [Mass fraction] 95 % Williams Rubin MD Work Phone: [facility] 08-30-2023 14:37-0500 Systolic blood pressure 118 mm[Hg] Williams Rubin MD Work Phone: [facility] 03-29-2023 14:43-0400 Body height 175.3 cm Jay Her DO Work Phone: [facility] 03-29-2023 14:43-0400 Body weight 109.77 kg Jay Her DO Work Phone: [facility] 03-29-2023 14:43-0400 Diastolic blood pressure 77 mm[Hg] aJy Her DO Work Phone: [facility] 03-29-2023 14:43-0400 Systolic blood pressure 134 mm[Hg] Jay Her DO Work Phone: [facility] 03-15-2023 15:43-0400 Diastolic blood pressure 75 mm[Hg] Manny Evans MD Work Phone: [facility] 03-15-2023 15:43-0400 Heart rate 65 /min Manny Evans MD Work Phone: [facility] 03-15-2023 15:43-0400 Systolic blood pressure 130 mm[Hg] Manny Evans MD Work Phone: [facility] 03-15-2023 14:09-0400 Body height 175.3 cm Manny Evans MD Work Phone: [facility] 03-15-2023 14:09-0400 Body temperature 97.59 [degF] Manny Evans MD Work Phone: [facility] 03-15-2023 14:09-0400 Body weight 109.77 kg Manny Evans MD Work Phone: [facility] 03-15-2023 14:09-0400 Respiratory rate 18 /min Manny Evans MD Work Phone: [facility] 03-15-2023 14:09-0400 SaO2% (BldA) [Mass fraction] 97 % Manny Evans MD Work Phone: [facility] 03-01-2023 14:07-0400 Body height 175.3 cm Williams Rubin MD Work Phone: [facility] 03-01-2023 14:07-0400 Body temperature 97 [degF] Williams Rubin MD Work Phone: [facility] 03-01-2023 14:07-0400 Body weight 111.22 kg Williams Rubin MD Work Phone: [facility] 03-01-2023 14:07-0400 Diastolic blood pressure 72 mm[Hg] Williams Rubin MD Work Phone: [facility] 03-01-2023 14:07-0400 Heart rate 56 /min Williams Rubin MD Work Phone: [facility] 03-01-2023 14:07-0400 Respiratory rate 18 /min Williams Rubin MD Work Phone: [facility] 03-01-2023 14:07-0400 SaO2% (BldA) [Mass fraction] 97 % Williams Rubin MD Work Phone: [facility] 03-01-2023 14:07-0400 Systolic blood pressure 132 mm[Hg] Williams Rubin MD Work Phone: [facility] 01-29-2023 14:25-0400 Body height 175.3 cm Ronny Wheeler MD Work Phone: [facility] 01-29-2023 14:25-0400 Body weight 110.22 kg Ronny Wheeler MD Work Phone: [facility] 01-29-2023 14:25-0400 Diastolic blood pressure 77 mm[Hg] Ronny Wheeler MD Work Phone: [facility] 01-29-2023 14:25-0400 Heart rate 59 /min Ronny Wheeler MD Work Phone: [facility] 01-29-2023 14:25-0400 Respiratory rate 18 /min Ronny Wheeler MD Work Phone: [facility] 01-29-2023 14:25-0400 SaO2% (BldA) [Mass fraction] 95 % Ronny Wheeler MD Work Phone: [facility] 01-29-2023 14:25-0400 Systolic blood pressure 132 mm[Hg] Ronny Wheeler MD Work Phone: [facility] 01-22-2023 13:58-0400 Body temperature 98.01 [degF] Jay Her DO Work Phone: [facility] 01-22-2023 13:58-0400 Body weight 111.13 kg Jay Her DO Work Phone: [facility] 01-22-2023 13:58-0400 Diastolic blood pressure 70 mm[Hg] Jya Her DO Work Phone: [facility] 01-22-2023 13:58-0400 Systolic blood pressure 121 mm[Hg] Jay Her DO Work Phone: [facility] 05-02-2022 10:41-0400 Body temperature 97.4 [degF] STOCK CHECKERER Ha Avelar Work Phone: [facility] Work Phone: 05-02-2022 10:41-0400 Diastolic blood pressure 68 mm[Hg] STOCK CHECKERER Ha Avelar Work Phone: [facility] [employer] Work Phone: 05-02-2022 10:41-0400 Heart rate 82 /min STOCK CHECKERER Ha Avelar Work Phone: [facility] [employer] Work Phone: 05-02-2022 10:41-0400 Respiratory rate 18 /min STOCK CHECKERER Ha Avelar Work Phone: [facility] Work Phone: 05-02-2022 10:41-0400 Systolic blood pressure 97 mm[Hg] STOCK CHECKERER Ha Avelar Work Phone: [facility] Work Phone: 04-30-2022 13:25-0400 Body height 175.26 cm STOCK CHECKERER Ha Avelar Work Phone: [facility] Work Phone: 04-30-2022 13:25-0400 Body mass index (BMI) [Ratio] 38.3 kg/m2 STOCK CHECKERER Ha Avelar Work Phone: [facility] Work Phone: 04-30-2022 13:25-0400 Body temperature 97.5 [degF] STOCK CHECKERER Ha Avelar Work Phone: [facility] Work Phone: 04-30-2022 13:25-0400 Body weight 117.9 kg STOCK CHECKERER Ha Avelar Work Phone: [facility] Work Phone: 04-30-2022 13:25-0400 Diastolic blood pressure 65 mm[Hg] STOCK CHECKERER Ha Avelar Work Phone: [facility] Work Phone: 04-30-2022 13:25-0400 Heart rate 60 /min STOCK CHECKERER Ha Avelar Work Phone: [facility] Work Phone: 04-30-2022 13:25-0400 Respiratory rate 18 /min STOCK CHECKERER Ha Avelar Work Phone: [facility] Work Phone: 04-30-2022 13:25-0400 SaO2% (BldA) [Mass fraction] 98 % STOCK CHECKERER Ha Avelar Work Phone: [facility] Work Phone: 04-30-2022 13:25-0400 Systolic blood pressure 123 mm[Hg] STOCK CHECKERER Ha Avelar Work Phone: [facility] Work Phone: 04-25-2022 10:27-0400 Body temperature 97.2 [degF] STOCK CHECKERER Ha Avelar Work Phone: [facility] Work Phone: 04-25-2022 10:27-0400 Diastolic blood pressure 57 mm[Hg] STOCK CHECKERER Ha Avelar Work Phone: [facility] Work Phone: 04-25-2022 10:27-0400 Heart rate 78 /min STOCK CHECKERER Ha Avelar Work Phone: [facility] Work Phone: 04-25-2022 10:27-0400 Respiratory rate 12 /min STOCK CHECKERER Ha Avelar Work Phone: [facility] Work Phone: 04-25-2022 10:27-0400 Systolic blood pressure 153 mm[Hg] STOCK CHECKERER Ha Avelar Work Phone: [facility] Work Phone: 04-25-2022 10:17-0400 Body height 175.26 cm STOCK CHECKERER Ha Avelar Work Phone: [facility] Work Phone: 04-25-2022 10:17-0400 Body mass index (BMI) [Ratio] 36.9 kg/m2 STOCK CHECKERER Ha Avelar Work Phone: [facility] Work Phone: 04-25-2022 10:17-0400 Body weight 113.39 kg STOCK CHECKERER Ha Avelar Work Phone: [facility] Work Phone: 04-09-2022 10:40-0400 Diastolic blood pressure 82 mm[Hg] Milka Rodriguez MD Work Phone: [facility] 04-09-2022 10:40-0400 Systolic blood pressure 140 mm[Hg] Milka Rodriguez MD Work Phone: [facility] 04-09-2022 10:29-0400 Body height 175.3 cm Milka Rodriguez MD Work Phone: [facility] 04-09-2022 10:29-0400 Body mass index (BMI) [Ratio] 37.1 kg/m2 Milka Rodriguez MD Work Phone: [facility] 04-09-2022 10:29-0400 Body weight 113.94 kg Milka Rodriguez MD Work Phone: [facility] 04-09-2022 10:29-0400 Heart rate 59 /min Milka Rodriguez MD Work Phone: [facility] 04-09-2022 10:29-0400 SaO2% (BldA) [Mass fraction] 95 % Milka Rodriguez MD Work Phone: [facility] 04-03-2022 12:02-0400 Body height 175.26 cm Ha DURAN Work Phone: [facility] Work Phone: Comment on above: 5'9 04-03-2022 12:02-0400 Body height 175.3 cm Ha DURAN Work Phone: [facility] Work Phone: 04-03-2022 12:02-0400 Body mass index (BMI) [Ratio] 37.4 kg/m2 Ha DURAN Work Phone: [facility] Work Phone: 04-03-2022 12:02-0400 Body temperature 97.1 [degF] Ha DURAN Work Phone: [facility] Work Phone: 04-03-2022 12:02-0400 Body weight 114.87 kg Ha DURAN Work Phone: [facility] Work Phone: 04-03-2022 12:02-0400 [place] Body Weight 145 [lb_av] Ha DURAN Work Phone: [facility] Work Phone: 02-15-2022 11:46-0400 Body height 175.26 cm Janice Efrain [facility] 02-15-2022 11:46-0400 Body mass index (BMI) [Ratio] 36.62 kg/m2 Janice Efrain [facility] 02-15-2022 11:46-0400 Body weight 112.49 kg Janice Efrain [facility] 02-15-2022 11:46-0400 Diastolic blood pressure 56 mm[Hg] Janice Efrain [facility] 02-15-2022 11:46-0400 Heart rate 58 /min Janice Efrain [facility] 02-15-2022 11:46-0400 Systolic blood pressure 140 mm[Hg] Janice Efrain [facility] 01-25-2022 10:59-0400 Body height 175.26 cm Ha DURAN Work Phone: [facility] Work Phone: Comment on above: 5'9 01-25-2022 10:59-0400 Body height 175.3 cm Ha DURAN Work Phone: [facility] Work Phone: 01-25-2022 10:59-0400 Body mass index (BMI) [Ratio] 36.2 kg/m2 Ha DURAN Work Phone: [facility] Work Phone: 01-25-2022 10:59-0400 Body temperature 96.8 [degF] Ha DURAN Work Phone: [facility] Work Phone: 01-25-2022 10:59-0400 Body weight 111.13 kg Ha DURAN Work Phone: [facility] Work Phone: 01-25-2022 10:59-0400 Diastolic blood pressure 70 mm[Hg] Ha DURAN Work Phone: [facility] Work Phone: 01-25-2022 10:59-0400 Heart rate 55 /min Ha DURAN Work Phone: [facility] Work Phone: 01-25-2022 10:59-0400 [place] Body Weight 145 [lb_av] Ha DURAN Work Phone: [facility] Work Phone: 01-25-2022 10:59-0400 SaO2% (BldA) [Mass fraction] 97 % Ha DURAN Work Phone: [facility] Work Phone: 01-25-2022 10:59-0400 Systolic blood pressure 140 mm[Hg] Ha DURAN Work Phone: [facility] Work Phone: 01-11-2022 13:19-0400 Body height 175.26 cm Ha DURAN Work Phone: [facility] Work Phone: Comment on above: 5'9 01-11-2022 13:19-0400 Body height 175.3 cm Ha DURAN Work Phone: [facility] Work Phone: 01-11-2022 13:19-0400 Body temperature 96.8 [degF] Ha DURAN Work Phone: [facility] Work Phone: 01-11-2022 13:19-0400 [place] Body Weight 145 [lb_av] Ha DURAN Work Phone: [facility] Work Phone: 12-12-2021 11:47-0400 Body height 175.26 cm Ha DURAN Work Phone: [facility] Work Phone: Comment on above: 5'9 12-12-2021 11:47-0400 Body height 175.3 cm Ha DURAN Work Phone: [facility] Work Phone: 12-12-2021 11:47-0400 Body temperature 97.5 [degF] Ha DURAN Work Phone: [facility] Work Phone: 12-12-2021 11:47-0400 [place] Body Weight 145 [lb_av] Ha DURAN Work Phone: [facility] Work Phone: 12-06-2021 11:50-0400 Body height 175.26 cm Janice Zuniga [facility] 12-06-2021 11:50-0400 Body mass index (BMI) [Ratio] 34.85 kg/m2 Janice Zuniga [facility] 12-06-2021 11:50-0400 Body weight 107.05 kg Janice Zuniga [facility] [employer] [facility] 12-06-2021 11:19-0400 Body height 175.26 [facility] 11:19-0400 Body mass index (BMI) [Ratio] 34.85 kg/m2 Janice Zuniga [facility] [employer] [facility] 12-06-2021 11:19-0400 Body weight 107.05 kg [facility]-06-[facility] 11:19-0400 Diastolic blood pressure 62 mm[Hg] Janice Zuniga [facility] [employer] 12-06-2021 11:19-0400 Heart rate 65 /min Janice Zuniga [facility] [employer] 12-06-2021 11:19-0400 Systolic blood pressure 104 mm[Hg] [facility] 11-13-2021 15:28-0400 Body height 175.26 cm Ha DURAN Work Phone: [facility] Work Phone: Comment on above: 5'9 11-13-2021 15:28-0400 Body height 175.3 cm Ha DURAN Work Phone: [facility] Work Phone: 11-13-2021 15:28-0400 Body mass index (BMI) [Ratio] 34 kg/m2 Ha DURAN Work Phone: [facility] Work Phone: 11-13-2021 15:28-0400 Body temperature 97.1 [degF] Ha DURAN Work Phone: [facility] Work Phone: 11-13-2021 15:28-0400 Body weight 104.33 kg Ha DURAN Work Phone: [facility] Work Phone: 11-13-2021 15:28-0400 [place] Body Weight 145 [lb_av] Ha DURAN Work Phone: [facility] Work Phone: 10-13-2021 11:12-0400 Body height 175.3 cm Abbey Oliveira MED SPA MANAGER Work Phone: [facility] 10-13-2021 11:12-0400 Body mass index (BMI) [Ratio] 33.68 kg/m2 Abbey Alberto MED SPA MANAGER Work Phone: [facility] 10-13-2021 11:12-0400 Body weight 103.47 kg Abbey Alberto MED SPA MANAGER Work Phone: [facility] 10-13-2021 11:12-0400 Diastolic blood pressure 55 mm[Hg] Abbey Oliveira CNP Work Phone: [facility] 10-13-2021 11:12-0400 Heart rate 62 /min Abbey Oliveira CNP Work Phone: [facility] 10-13-2021 11:12-0400 SaO2% (BldA) [Mass fraction] 96 % Abbey Oliveira CNP Work Phone: [facility] 10-13-2021 11:12-0400 Systolic blood pressure 114 mm[Hg] Abbey Alberto MED SPA MANAGER Work Phone: [facility] 10-09-2021 17:03-0400 Body height 175.26 cm Ha DURAN Work Phone: [facility] Work Phone: Comment on above: 5'9 10-09-2021 17:03-0400 Body height 175.3 cm Ha DURAN Work Phone: [facility] Work Phone: 10-09-2021 17:03-0400 Body mass index (BMI) [Ratio] 34.3 kg/m2 Ha DURAN Work Phone: [facility] Work Phone: 10-09-2021 17:03-0400 Body temperature 96.7 [degF] Ha DURAN Work Phone: [facility] Work Phone: 10-09-2021 17:03-0400 Body weight 105.35 kg Ha DURAN Work Phone: [facility] Work Phone: 10-09-2021 17:03-0400 [place] Body Weight 145 [lb_av] Ha DURAN Work Phone: [facility] Work Phone: 10-03-2021 15:02-0400 Body height 175.26 cm Ha DURAN Work Phone: [facility] Work Phone: Comment on above: 5'9 10-03-2021 15:02-0400 Body height 175.3 cm Ha DURAN Work Phone: [facility] Work Phone: 10-03-2021 15:02-0400 Body mass index (BMI) [Ratio] 34.8 kg/m2 Ha DURAN Work Phone: [facility] Work Phone: 10-03-2021 15:02-0400 Body temperature 96.9 [degF] Ha DURAN Work Phone: [facility] Work Phone: 10-03-2021 15:02-0400 Body weight 107 kg Ha DURAN Work Phone: [facility] Work Phone: 10-03-2021 15:02-0400 Diastolic blood pressure 70 mm[Hg] Ha DURAN Work Phone: [facility] Work Phone: 10-03-2021 15:02-0400 Heart rate 75 /min Ha DURAN Work Phone: [facility] Work Phone: 10-03-2021 15:02-0400 [place] Body Weight 145 [lb_av] Ha DURAN Work Phone: [facility] Work Phone: 10-03-2021 15:02-0400 SaO2% (BldA) [Mass fraction] 92 % Ha DURAN Work Phone: [facility] Work Phone: 10-03-2021 15:02-0400 Systolic blood pressure 120 mm[Hg] Ha DURAN Work Phone: [facility] 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 08-03-2021 13:25-0500 Body weight 109.77 kg Janiceras Zuniga [facility] 08-03-2021 12:58-0500 Body height 175.26 cm Janice Efrain [facility] 08-03-2021 12:58-0500 Body mass index (BMI) [Ratio] 35.73 kg/m2 Janice Efrain [facility] 08-03-2021 12:58-0500 Body weight 109.77 kg Janice Efrain [facility] 08-03-2021 12:58-0500 Diastolic blood pressure 81 mm[Hg] Janice Efrain [facility] 08-03-2021 12:58-0500 Heart rate 57 /min Janiceras Zuniga [facility] 08-03-2021 12:58-0500 Systolic blood pressure 126 mm[Hg] Janice Efrain [facility] 06-13-2021 11:49-0500 Body height 175.26 cm Ha DURAN Work Phone: [facility] Work Phone: Comment on above: 5'9 06-13-2021 11:49-0500 Body height 175.3 cm Ha DURAN Work Phone: [facility] Work Phone: 06-13-2021 11:49-0500 Body mass index (BMI) [Ratio] 35.9 kg/m2 Ha DURAN Work Phone: [facility] Work Phone: 06-13-2021 11:49-0500 Body temperature 98.1 [degF] Ha Avelar RENEE Work Phone: [facility] Work Phone: 06-13-2021 11:49-0500 Body weight 110.22 kg Ha Avelar RENEE Work Phone: [facility] Work Phone: 06-13-2021 11:49-0500 [place] Body Weight 145 [lb_av] Ha Avelar RENEE Work Phone: [facility] Work Phone: 05-11-2021 12:40-0400 Body height 175.26 cm Janice Zuniga [employer] 05-11-2021 12:40-0400 Body mass index (BMI) [Ratio] 36.03 kg/m2 Janiceras Zuniga [employer] [facility] 05-11-2021 12:40-0400 Body weight 110.68 kg Janiceras Gutierrezant [employer] [facility] 05-11-2021 12:04-0400 Body height 175.26 cm Janiceras Zuniga [employer] [facility] 05-11-2021 12:04-0400 Body mass index (BMI) [Ratio] 36.03 kg/m2 Janice Efrain [employer] [facility] 05-11-2021 12:04-0400 Body weight 110.68 kg Janice Efrain [employer] [facility] 05-11-2021 12:04-0400 Diastolic blood pressure 68 mm[Hg] Janice Efrain [employer] 05-11-2021 12:04-0400 Heart rate 63 /min Janice Efrain [facility] 05-11-2021 12:04-0400 Systolic blood pressure 139 mm[Hg] Janice Zuniga [facility] 05-04-2021 16:37-0400 Body height 175.26 cm Ha DURAN Work Phone: [facility] Work Phone: Comment on above: 5'9 05-04-2021 16:37-0400 Body height 175.3 cm Ha DURAN Work Phone: [facility] Work Phone: 05-04-2021 16:37-0400 Body mass index (BMI) [Ratio] 35.9 kg/m2 Ha DURAN Work Phone: [facility] Work Phone: 05-04-2021 16:37-0400 Body temperature 96.2 [degF] Ha DURAN Work Phone: [facility] Work Phone: Comment on above: ` 05-04-2021 16:37-0400 Body weight 110.34 kg Ha DURAN Work Phone: [facility] Work Phone: 05-04-2021 16:37-0400 [place] Body Weight 145 [lb_av] Ha DRUAN Work Phone: [facility] [employer] Work Phone: 03-30-2021 12:19-0400 Body height 175.26 cm Ha DURAN Work Phone: [facility] [employer] Work Phone: Comment on above: 5'9 03-30-2021 12:19-0400 Body height 175.3 cm Ha DURAN Work Phone: [facility] [employer] Work Phone: 03-30-2021 12:19-0400 Body mass index (BMI) [Ratio] 35.8 kg/m2 Ha DURAN Work Phone: [facility] [employer] Work Phone: 03-30-2021 12:19-0400 Body temperature 97.4 [degF] Ha DURAN Work Phone: [facility] [employer] Work Phone: 03-30-2021 12:19-0400 Body weight 109.88 kg Ha DURAN Work Phone: [facility] [employer] Work Phone: 03-30-2021 12:19-0400 Body weight 109.89 kg Ha DURAN Work Phone: Naomi [employer]os[employer] Work Phone: 03-30-2021 12:19-0400 [place] Body Weight 145 [lb_av] Ha DURAN Work Phone: Naomi [employer] Work Phone: 02-16-2021 23:20-0400 Body height 175.26 cm Janice Efrain [facility] [employer] 02-16-2021 23:20-0400 Body mass index (BMI) [Ratio] 36.32 kg/m2 [facility] 02-16-2021 23:20-0400 Body weight 111.59 kg Janice Efrain [facility] [employer] [facility] 02-15-2021 13:09-0400 Body height 175.26 cm Janice Efrain [facility] [employer] [facility] 02-15-2021 13:09-0400 Body mass index (BMI) [Ratio] 36.32 kg/m2 Janice Zuniga [facility] [employer] [facility] 02-15-2021 13:09-0400 Body temperature 96.8 [degF] Janice Zuniga [facility] [employer] 02-15-2021 13:09-0400 Body weight 111.59 kg Janice Zuniga [facility] [employer] 02-15-2021 13:09-0400 Diastolic blood pressure 70 mm[Hg] Janice Zuniga [facility] [employer] 02-15-2021 13:09-0400 Heart rate 72 /min Janice Zuniga [facility] [employer] 02-15-2021 13:09-0400 Systolic blood pressure 107 mm[Hg] Janice Zuniga [facility] [employer] 01-25-2021 11:17-0400 Body height 175.26 cm Ha DURAN Work Phone: Naomi [employer] Work Phone: Comment on above: 5'9 01-25-2021 11:17-0400 Body height 175.3 cm Ha DURAN Work Phone: [facility]isselle [employer] Work Phone: 01-25-2021 11:17-0400 Body mass index (BMI) [Ratio] 37.4 kg/m2 Ha DURAN Work Phone: [facility]elle [employer] Work Phone: 01-25-2021 11:17-0400 Body temperature 98.2 [degF] Ha DURAN Work Phone: [facility]elle [employer] Work Phone: 01-25-2021 11:17-0400 Body weight 114.76 kg Ha DURAN Work Phone: [facility]isselle [employer] Work Phone: 01-25-2021 11:17-0400 Diastolic blood pressure 76 mm[Hg] Ha DURAN Work Phone: [facility]isselle [employer] Work Phone: 01-25-2021 11:17-0400 Heart rate 77 /min Ha DURAN Work Phone: [facility]elle [employer] Work Phone: 01-25-2021 11:17-0400 [place] Body Weight 145 [lb_av] Ha DURAN Work Phone: Naomi [employer] Work Phone: 01-25-2021 11:17-0400 SaO2% (BldA) [Mass fraction] 96 % Ha DURAN Work Phone: Naomi [employer] Work Phone: 01-25-2021 11:17-0400 Systolic blood pressure 138 mm[Hg] Ha DURAN Work Phone: Naomi [employer] Work Phone: 11-18-2020 11:20-0400 Body height 175.26 cm Janice Zuniga [facility] [employer] [facility] 11-18-2020 11:20-0400 Body mass index (BMI) [Ratio] 36.18 kg/m2 Janice Gutierrezant [facility] [employer] [facility] 11-18-2020 11:20-0400 Body temperature 97.6 [degF] Janice Gutierrezant [facility] [employer] [facility] 11-18-2020 11:20-0400 Body weight 111.13 kg Janice Zuniga [facility] 11-18-2020 11:20-0400 Diastolic blood pressure 72 mm[Hg] Janice Zuniga [facility] 11-18-2020 11:20-0400 Heart rate 74 /min Janice Zuniga [facility] 11-18-2020 11:20-0400 Respiratory rate 20 /min Janice Zuniga [facility] 11-18-2020 11:20-0400 Systolic blood pressure 124 mm[Hg] Janice Zuniga [facility] 10-07-2020 14:29-0400 BMI (Body Mass Index) 37.29 kg/m2 [facility] 10-07-2020 14:29-0400 Body weight 114.53 kg [facility] 10-07-2020 14:29-0400 BP Diastolic 73 mm[Hg] [facility] 10-07-2020 14:29-0400 BP Systolic 126 mm[Hg] [facility] 10-07-2020 14:29-0400 Height 175.3 cm [facility] 10-07-2020 14:29-0400 Pulse (Heart Rate) 71 /min [facility] 10-07-2020 14:29-0400 Pulse Oximetry 97 % [facility] 04-05-2020 14:29-0400 BMI (Body Mass Index) 35.29 kg/m2 [facility] 04-05-2020 14:29-0400 Body weight 108.41 kg [facility] 04-05-2020 14:29-0400 BP Diastolic 63 mm[Hg] [facility] 04-05-2020 14:29-0400 BP Systolic 110 mm[Hg] [facility] 04-05-2020 14:29-0400 Height 175.3 cm [facility] 04-05-2020 14:29-0400 Pulse (Heart Rate) 60 /min [facility] 04-05-2020 14:29-0400 Pulse Oximetry 97 % [facility] 12-29-2019 10:51-0400 BMI (Body Mass Index) 34.7 kg/m2 [facility] 12-29-2019 10:51-0400 Body weight 106.59 kg [facility] 12-29-2019 10:51-0400 BP Diastolic 72 mm[Hg] [facility] 12-29-2019 10:51-0400 BP Systolic 121 mm[Hg] [facility] 12-29-2019 10:51-0400 Height 175.3 cm [facility] 12-29-2019 10:51-0400 Pulse (Heart Rate) 60 /min [facility] 12-29-2019 10:51-0400 Pulse Oximetry 96 % [facility] 12-15-2019 11:32-0400 BMI (Body Mass Index) 34.7 kg/m2 [facility] 12-15-2019 11:32-0400 Body weight 106.59 kg [facility] 12-15-2019 11:32-0400 BP Diastolic 56 mm[Hg] [facility] 12-15-2019 11:32-0400 BP Systolic 101 mm[Hg] [facility] 12-15-2019 11:32-0400 Height 175.3 cm [facility] 12-15-2019 11:32-0400 Pulse (Heart Rate) 74 /min [facility] 12-15-2019 11:32-0400 Pulse Oximetry 98 % [facility] 08-21-2019 10:31-0500 BMI (Body Mass Index) 33.52 kg/m2 [facility] 08-21-2019 10:31-0500 Body weight 102.97 kg [facility] 08-21-2019 10:31-0500 BP Diastolic 74 mm[Hg] Milka Rodriguez [facility] 08-21-2019 10:31-0500 BP Systolic 110 mm[Hg] [facility] 08-21-2019 10:31-0500 Height 175.3 cm Milka Rodriguez [facility] 08-21-2019 10:31-0500 Pulse (Heart Rate) 67 /min Milka Rodriguez [facility] 08-21-2019 10:31-0500 Pulse Oximetry 95 % Milka Rodriguez [facility] 08-18-2019 08:27-0500 BMI (Body Mass Index) 33.79 kg/m2 Ha Avelar [facility] 08-18-2019 08:27-0500 Body weight 103.78 kg Ha Avelar [facility] 08-18-2019 08:27-0500 BP Diastolic 71 mm[Hg] Ha Avelar [facility] 08-18-2019 08:27-0500 BP Systolic 128 mm[Hg] Ha Avelar [facility] 08-18-2019 08:27-0500 Height 175.3 cm Ha Avelar [facility] 08-18-2019 08:27-0500 Pulse (Heart Rate) 69 /min [facility] 08-18-2019 08:27-0500 Pulse Oximetry 97 % Ha Avelar [facility] 07-28-2019 13:41-0500 BMI (Body Mass Index) 33.43 kg/m2 [facility] 07-28-2019 13:41-0500 Body [facility] 102.69 [facility] 07-28-2019 13:41-0500 BP Diastolic 60 mm[Hg] [facility] 07-28-2019 13:41-0500 BP Systolic 120 mm[Hg] [facility] 07-28-2019 13:41-0500 Height 175.3 cm [facility] 06-11-2017 11:05-0500 BMI (Body Mass Index) 29.35 kg/m2 [facility] Work Phone: 06-11-2017 11:05-0500 Body Temperature 97.5 [degF] [facility] Work Phone: 06-11-2017 11:05-0500 BP Diastolic 81 mm[Hg] [facility] Work Phone: 06-11-2017 11:05-0500 BP Systolic 122 mm[Hg] [facility] Work Phone: 06-11-2017 11:05-0500 Height 175.26 cm Carmelita Fernandes [facility] Work Phone: 06-11-2017 11:05-0500 Pulse (Heart Rate) 78 /min [facility] Work Phone: 06-11-2017 11:05-0500 Respiratory Rate 20 /min Carmelita Fernandes [facility] Work Phone: 06-11-2017 11:05-0500 Weight 90.18 kg Carmelita Fernandes [facility] Work Phone: 11-27-2016 09:43-0400 Body Temperature 97.5 [degF] Carmelita Fernandes [facility] Work Phone: 11-27-2016 09:43-0400 Height 175.26 cm Carmelita Fernandes [facility] Work Phone: 11-27-2016 09:43-0400 Weight 91.17 kg Carmelita Fernandes [facility] Work Phone: Encounters Encounter Date Encounter Type Care Provider Facility Start: 12-15-2024 End: 12-15-[address] Lisseth Peñaloza MD Work Phone: [facility] Work Phone: Start: 12-15-2024 End: 12-15-2024 Dr. Michel Haq MD -Laboratory Specimen Work Phone: Start: 12-15-2024 End: 12-15-2024 ambulatory Lisseth Peñaloza Facility:[facility] Start: 12-10-2024 End: 12-10-2024 Sonia NOLAN -[facility] Work Phone: Start: 12-10-2024 End: 12-10-[address] Lisseth Peñaloza MD Work Phone: [facility] Work Phone: Start: 12-09-2024 End: 12-09-2024 Jay KUMAR -[facility] Work Phone: Start: 12-09-2024 End: 12-09-[address] Lisseth Peñaloza MD Work Phone: [facility] Work Phone: Start: 12-08-2024 End: 12-08-[address] Lisseth Peñaloza MD Work Phone: [facility] Work Phone: Start: 12-08-2024 End: 12-08-2024 Dr. Michel Haq MD -Laboratory Specimen Work Phone: Start: 12-08-2024 End: 12-08-2024 ambulatory Lisseth [place] Facility:[facility] Start: 12-01-2024 End: 12-01-2024 Dr. Michel Haq MD -Medical Out Work Phone: Start: 12-01-2024 End: 12-01-2024 ambulatory No Primary Care Physician [facility] Work Phone: Start: 12-01-2024 End: 12-01-[address] Lisseth Peñaloza MD Work Phone: [facility] Work Phone: Start: 12-01-2024 End: 12-01-2024 Dr. Michel Haq MD -Laboratory Specimen Work Phone: Start: 12-01-2024 End: 12-01-2024 [facility] Start: 11-27-2024 End: 11-28-2024 No Primary Care Physician -Emergency Department Work Phone: Start: 11-27-2024 End: 11-28-2024 Emergency department patient visit No Primary Care Physician [facility] Work Phone: Start: 11-26-2024 Dr. Denisse Guan MD - [facility] Work Phone: Start: 11-25-2024 ambulatory Lisseth [place] Dell Facility :[facility] Start: 11-25-2024 Dr. Haidre Roblero [facility] Work Phone: Start: 11-24-2024 Dr. Haider Smith DO [facility] Work Phone: Start: 11-23-2024 ambulatory Jean Trujillo Facility:[facility] Start: 11-23-2024 Dr. Jean Trujillo MD [facility] Start: 11-22-2024 Dr. Radha Dumont MD [facility] Start: 11-22-2024 Dr. Haider ROMAN [facility] Work Phone: Start: 11-21-2024 ambulatory Radha Dumont [facility] Start: 11-21-2024 Dr. Radha Dumont MD [facility] Start: 11-21-2024 Dr. Haider Smith DO [facility] Work Phone: Start: 11-20-2024 ambulatory Mariah Brewer [facility] Start: 11-20-2024 End: 11-26-2024 Evaluation and management of inpatient No Primary Care Physician [facility] Work Phone: Start: 11-20-2024 End: 11-26-2024 Dr. Denisse Guan MD -Progressive Care Unit Work Phone: Start: 11-20-2024 Evaluation and manag ement of inpatient Dr. Mariah Brewer MD -Intensive Care Unit Work Phone: Start: 11-20-2024 ambulatory Lisseth Jh Facility :[facility] Start: 11-09-2024 End: 11-09-2024 ambulatory Lisseth [place] Facility:[facility] Start: 11-09-2024 End: 11-09-[address] Jean Trujillo MD -[facility] Work Phone: Start: 11-09-2024 End: 11-09-2024 Dr. Jean Trujillo MD -[facility] Work Phone: Start: 11-07-2024 End: 11-07-2024 [facility] Start: 11-07-2024 End: 11-07-2024 Emergency department patient visit Dr. Jeremiah Henley MD -Emergency Department Work Phone: Start: 11-04-2024 End: 11-04-2024 Patient encounter procedure Shawanda Keane PA -[facility] Work Phone: Start: 11-04-2024 End: 11-04-2024 Shawanda Keane PA -[facility] Work Phone: Start: 11-04-2024 End: 11-04-2024 ambulatory Lisseth Jh Facility:[facility] Start: 10-19-2024 End: 10-19-[address] Lisseth Peñaloza MD -[facility] Work Phone: Start: 10-19-2024 End: 10-19-2024 Dr. Lisseth Peñaloza MD -[facility] Work Phone: Start: 10-19-2024 End: 10-19-2024 ambulatory Lissethcarola Peñaloza Facility:[facility] Start: 10-15-2024 End: 10-15-2024 Patient encounter procedure Sonia Quarles STOCK CHECKERER-C -[facility] Work Phone: Start: 10-15-2024 End: 10-15-2024 Sonia Quarles ST[employer] CHECKERER-C -[facility] Work Phone: Start: 10-15-2024 End: 10-15-2024 ambulatory Lisseth [place] Facility:[facility] Start: 09-07-2024 End: 09-07-[address] Lisseth Peñaloza MD -[facility] Work Phone: Start: 09-07-2024 End: 09-07-2024 Dr. Lisseth Peñaloza MD -[facility] Work Phone: Start: 09-07-2024 End: 09-07-2024 ambulatory Lisseth Peñaloza Facility:[facility] Start: 08-26-2024 End: 08-26-[address] Lisseth Peñaloza MD -Laboratory, [facility] Start: 08-26-2024 End: 08-26-2024 Dr. Lisseth Peñaloza MD -Laboratory [facility] Start: 08-26-2024 End: 08-26-2024 ambulatory Lisseth Sarahlay Facility:[facility] Start: 08-05-2024 End: 08-05-[address] Lisseth Peñaloza MD -[facility] Work Phone: Start: 08-05-2024 End: 08-05-2024 Dr. Lisseth Peñaloza MD -[facility] Work Phone: Start: 08-05-2024 End: 08-05-2024 ambulatory Lisseth Sarahlay Facility:[facility] Start: 05-29-2024 End: 05-29-2024 ambulatory No Primary Care Physician Facility:[facility] Start: 05-26-2024 [facility] Start: 05-26-2024 End: 05-26-2024 ambulatory [place] [facility] Facility:[facility] Start: 05-20-2024 ambulatory No Primary Car e Physician Facility:[facility] Start: 05-08-2024 End: 05-08-2024 ambulatory Jeanie Murphy RN Work Phone: [facility] Start: 05-08-2024 End: 05-08-2024 Home visit Jeanie Murphy RN Work Phone: [facility] Comment on above: Primary Care Coordin ator- Other (Discharged new PCP) Start: 05-06-2024 End: 05-06-2024 ambulatory [place] Ronnie Facility:[facility] Start: 04-10-2024 End: 04-10-2024 Telephone encounter Homar Vasques MD Work Phone: [facility] Comment on above: Patient Update (No l onger a patient) Start: 04-07-2024 End: 04-08-2024 Refill Williams Rubin MD Work Phone: [facility] Comment on above: Refill Request Start: 04-03-2024 End: 04-03-2024 ambulatory Jeanie Murphy RN Work Phone: [facility] [employer] Start: 04-03-2024 End: 04-03-2024 Home visit Jeanie Murphy RN Work Phone: [facility] [employer] Comment on above: Primary Care Coordin ator Chronic Care (Attempted PCC follow up) Start: 04-03-2024 End: 04-03-2024 Telephone encounter Williams Rubin MD Work Phone: [facility] Comment on above: No Show Start: 03-19-2024 End: 03-19-2024 ambulatory Jeanie Murphy RN Work Phone: [facility] [employer] Start: 03-19-2024 End: 03-19-2024 Home visit Jeanie Murphy RN Work Phone: [employer] Comment on above: Primary Care Coordin ator Chronic Care (Attempted PCC follow up) Primary Care Coordin ator Chronic Care (PCC follow up) Start: 03-09-2024 End: 03-10-2024 Refill Williams Rubin MD Work Phone: [facility] Comment on above: Refill Request Start: 03-05-2024 End: 03-07-2024 Refill Manny Evans MD Work Phone: [facility] Comment on above: Refill Request Start: 03-03-2024 End: 03-03-2024 ambulatory Jeanie Murphy RN Work Phone: [facility] [employer] Start: 03-03-2024 End: 03-03-2024 Home visit Jeanie Murphy RN Work Phone: [facility] [employer] Comment on above: Primary Care Coordin ator Chronic Care (Attempted to contact patient with PCP medication instruction) Start: 02-26-2024 End: 02-26-2024 ambulatory Jeanie Murphy RN [facility] Start: 02-26-2024 Home visit Jeanie Murphy RN [facility] Comment on above: Transition Of Care ( ER follow up, [place], 02/24/2024) Start: 02-26-2024 End: 02-26-2024 Patient encounter procedure [facility] Comment on above: Type 2 diabetes glenda itus with diabetic neuropathy, with long- term current use of insulin (HCC) (Primary Dx); Uses self-applied continuous glucose monitoring device; Diabetes education, encounter for; Encounter for medication counseling; Preventative health care; Complex care coordination Start: 02-26-2024 End: 02-26-2024 Patient encounter status [facility] Start: 02-24-2024 Emergency department patient visit HOMAR VASQUES Facility:[facility] Start: 02-24-2024 Telephone encounter Williams apple MD Work Phone: [facility] Comment on above: Opened In Error Start: 02-20-2024 Telephone encounter Williams apple MD Work Phone: [facility] Comment on above: Patient Question Start: 02-13-2024 ambulatory Jeanie Murphy RN [facility] Start: 02-13-2024 Home visit Jeanie Murphy RN [facility] Comment on above: Primary Care Coordin ator Chronic Care (PCC follow up) Start: 02-12-2024 Telephone encounter Williams apple MD Work Phone: [facility] Comment on above: Rx Refills Refill Request Start: 02-11-2024 Refill Manny Evans MD Work Phone: [facility] Comment on above: Refill Request Start: 01-29-2024 End: 01-29-2024 ambulatory JAMIE GRAF Facility:[facility] Start: 01-29-2024 End: 01-29-2024 ambulatory HOMAR VASQUES Facility:[facility] Start: 01-29-2024 End: 01-29-2024 Patient encounter procedure [facility] D [facility] Comment on above: Type 2 diabetes glenda itus with diabetic neuropathy, with long- term current use of insulin (HCC) (Primary Dx); Encounter for screening mammogram for breast cancer; Encounter for behavioral health screening; Class 2 obesity with body mass index (BMI) of 35.0 to 35.9 in adult, unspecified obesity type, unspecified whether serious comorbidity present; Preventative health care; Uses self-applied continuous glucose monitoring device; Diabetes education, encounter for; Counseling and coordination of care Start: 01-29-2024 End: 01-29-2024 Patient encounter status Pharm D [facility] Start: 01-11-2024 End: 01-12-2024 Emergency department patient visit Jose R Phillips Facility:[facility] Start: 01-07-2024 ambulatory Jeanie Murphy RN [facility] Start: 01-07-2024 Home visit Jeanie Murphy RN [facility] Comment on above: Primary Care Coordin ator Chronic Care (Pcc follow up) Start: 12-30-2023 ambulatory Jeanie Murphy RN [facility] Start: 12-30-2023 Home visit Jeanie Murphy RN [facility] Comment on above: Primary Care Coordin ator Chronic Care (PCC follow up, patient updated on Victoza change) Start: 12-27-2023 ambulatory Jeanie Murphy RN [facility] Start: 12-27-2023 Home visit Jeanie KELLY [facility] Comment on above: Primary Care Coordin ator Chronic Care (Attempted outreach) Start: 12-26-2023 ambulatory Jeanie Murphy RN [facility] Start: 12-26-2023 Home visit Jeanie Murphy RN [facility] Comment on above: Primary Care Coordin ator Chronic Care (PCC follow up) Start: 12-24-2023 End: 12-24-2023 Patient encounter procedure Manny Evans MD Work Phone: [facility] Comment on above: Type 2 diabetes gelnda itus with diabetic neuropathy, with long- term current use of insulin (HCC) (Primary Dx); Dyspepsia; Nausea Start: 12-24-2023 End: 12-24-2023 ambulatory MANNY EVANS Facility:[facility] Start: 12-06-2023 ambulatory Jeanie Murphy RN [facility] Start: 12-06-2023 Home visit Jeanie Murphy RN [facility] Comment on above: Primary Care Coordin ator Chronic Care (Attempted PCC follow up) Start: 12-05-2023 Telephone encounter Sonia mccoy [facility] Work Phone: [facility] Comment on above: No Show Appointment Start: 11-29-2023 ambulatory Jeanie Murphy RN [facility] Start: 11-29-2023 Home visit Jeanie Murphy RN [facility] Comment on above: Primary Care Coordin ator Chronic Care (PCC follow up) Start: 11-27-2023 Telephone encounter Williams apple MD Work Phone: [facility] Comment on above: Forms (Specialty med ical- glucose monitor) Start: 11-15-2023 Telephone encounter Veronica Steiner [facility] Comment on above: Colonoscopy Referral Refill Request Start: 11-14-2023 End: 11-14-2023 Patient encounter procedure Pharm D Clinic [facility] Comment on above: Uses self-applied co ntinuous glucose monitoring device (Primary Dx); Type 2 diabetes mellitus with diabetic neuropathy, with long-term current use of insulin (HCC); Preventative health care; Diabetes education, encounter for Start: 11-14-2023 End: 11-14-2023 Patient encounter status Pharm D [facility] Start: 11-14-2023 End: 11-14-2023 ambulatory HOMAR VASQUES Facility:[facility] Start: 11-08-2023 ambulatory Jeanie Murphy RN [facility] Start: 11-08-2023 Home visit Jeanie Murphy RN [facility] Comment on above: Primary Care Coordin ator Chronic Care (PCC follow up) Start: 11-05-2023 Telephone encounter Williams apple MD Work Phone: [facility] Comment on above: Forms (Specialty- gl ucose monitor) Start: 10-31-2023 Telephone encounter Homar Vasques MD Work Phone: [facility] Comment on above: Initial Consult Start: 10-30-2023 End: 10-30-2023 ambulatory HOMAR VASQUES Facility:[facility] Start: 10-30-2023 Encounter for genera l adult medical examination without abnormal findings HOMAR VASQUES [facility] Start: 10-30-2023 End: 10-30-2023 Patient encounter procedure Pharm D [facility] Comment on above: Type 2 diabetes glenda itus with diabetic neuropathy, with long- term current use of insulin (HCC) (Primary Dx); Uses self-applied continuous glucose monitoring device; Preventative health care; Diabetes education, encounter for; Screening for colon cancer Start: 10-30-2023 End: 10-30-2023 Patient encounter status Pharm D [facility] Work Phone: Start: 10-22-2023 End: 10-22-2023 ambulatory HOMAR VASQUES Facility:[facility] Start: 10-22-2023 End: 10-22-2023 Follow-up encounter Ronny Wheeler MD Work Phone: [facility] Comment on above: Remote Pacemaker Fol low Up Start: 10-22-2023 ICD Remote F/U Ronny Wheeler MD Work Phone: [place] [facility] Start: 10-22-2023 End: 10-22-2023 Patient encounter procedure Rem Device Ck [facility] Comment on above: Refill Request Start: 10-06-2023 End: 10-06-2023 Emergency department patient visit [facility]-Emergency Department Work Phone: Start: 09-24-2023 Refill Manny Evans MD Work Phone: [facility] Comment on above: Refill Request Start: 09-20-2023 ambulatory Jeanie Murphy RN [facility] Start: 09-20-2023 Follow-up encounter Jeanie Maxwell [facility] Comment on above: Primary Care Coordin ator Chronic Care (PCC follow up) Start: 09-19-2023 Telephone encounter Williams apple MD Work Phone: [facility] Comment on above: Medication Authoriza tion (Victoza ) Medication Authoriza tion (Freestyle Lance 2 sensor) Start: 09-12-2023 End: 09-12-2023 Patient encounter procedure Pharm D [facility] Comment on above: Type 2 diabetes glenda itus with diabetic neuropathy, with long- term current use of insulin (HCC) (Primary Dx); Preventative health care; Food insecurity; Diabetes education, encounter for Start: 09-12-2023 End: 09-12-2023 Patient encounter status Pharm D Clinic [facility] Ross Anayai josh Work Phone: Start: 09-12-2023 End: 09-12-2023 ambulatory HOMAR VASQUES Facility:[facility] Start: 09-06-2023 End: 09-06-2023 ambulatory Jeanie Murphy RN AG VNS Start: 09-06-2023 Follow-up encounter 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 Decatizer Comment on above: Primary Care Coordin ator Chronic Care (Attempted PCC follow up) Start: 09-04-2023 Refill Manny Evans MD Work Phone: [facility] Comment on above: Refill Request Start: 08-30-2023 End: 08-30-2023 Patient encounter procedure Williams Rubin MD Work Phone: [facility] Comment on above: Type 2 diabetes glenda itus with diabetic neuropathy, with long- term current use of insulin (HCC) (Primary Dx); Anxiety with depression; Chronic constipation; Intertrigo; Type 2 diabetes mellitus with complication, without long-term current use of insulin (HCC) Start: 08-30-2023 End: 08-30-2023 ambulatory WILLIAMS RUBIN Facility:[facility] Start: 08-22-2023 Refill Abbey chavez CNP Work Phone: [facility] Comment on above: Medication Refill Start: 07-18-2023 End: 07-18-2023 ambulatory HOMAR VASQUES Facility:[facility] Start: 06-27-2023 ambulatory Jeanie Murphy RN AG VNS Start: 06-27-2023 Follow-up encounter 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 Decatizer Comment on above: Primary Care Coordin ator Chronic Care (Attempted PCC follow up) Start: 06-26-2023 Telephone encounter Williams apple MD Work Phone: [facility] Comment on above: Patient Question Start: 06-20-2023 Telephone encounter Williams apple MD Work Phone: [facility] Comment on above: Medication Authoriza tion (Basaglar kwikpen 100unit/ml) Start: 06-18-2023 ambulatory Jeanie Murphy RN AG VNS Start: 06-18-2023 Follow-up encounter 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 Decatizer Comment on above: Primary Care Coordin ator Chronic Care (PCC follow up) Start: 06-18-2023 Telephone encounter Homar Vasques MD Work Phone: [facility] Start: 06-17-2023 Telephone encounter Williams apple MD Work Phone: [facility] Comment on above: Results Start: 06-14-2023 Telephone encounter Williams apple MD Work Phone: [facility] Comment on above: Patient Update Start: 05-20-2023 End: 05-20-2023 ambulatory WILLIAMS RUBIN Facility:[facility] Start: 05-06-2023 Telephone encounter Williams apple MD Work Phone: [facility] Comment on above: No Show Start: 05-01-2023 Telephone encounter Sonia mccoy [facility] Work Phone: [facility] Comment on above: No Show (Diabetes fo llow up) Start: 04-19-2023 ambulatory Jeanie Murphy RN AG VNS Start: 04-19-2023 Follow-up encounter 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 Decatizer Comment on above: Primary Care Coordin ator Chronic Care (Attempted PCC follow up) Start: 04-15-2023 Telephone encounter Williams apple MD Work Phone: [facility] Comment on above: Medication Problem Start: 04-09-2023 Refill Jay Her DO Work Phone: [facility] Comment on above: Refill Request Start: 04-05-2023 ambulatory Jeanie Murphy RN AG [facility] Comment on above: Primary Care Coordin ator Chronic Care (Intake) Start: 04-03-2023 End: 04-03-2023 ambulatory Device 1 [facility] Comment on above: ICD Start: 04-03-2023 Follow-up encounter Ronny Wheeler MD Work Phone: [facility] Start: 04-03-2023 End: 04-03-2023 Patient encounter procedure Ronny Wheeler MD Work Phone: [facility] Start: 04-03-2023 Telephone encounter Williams apple MD Work Phone: [facility] Comment on above: Medication Authoriza tion (Ozempic 2 mg/ 3 mL pen) Start: 03-29-2023 End: 03-29-2023 Patient encounter procedure Jay Her DO Work Phone: [facility] Comment on above: Type 2 diabetes glenda itus with diabetic neuropathy, with long- term current use of insulin (HCC) (Primary Dx); Depression, unspecified depression type Start: 03-26-2023 Refill Williams Rubin MD Work Phone: [facility] Comment on above: Refill Request Start: 03-25-2023 ambulatory Williams Rubin MD Work Phone: [facility] Start: 03-15-2023 End: 03-15-2023 Patient encounter procedure Manny Evans MD Work Phone: [facility] Comment on above: Type 2 diabetes glenda itus with diabetic neuropathy, with long- term current use of insulin (HCC) (Primary Dx); Encounter for immunization; Medication management Start: 03-15-2023 Refill Jay Her DO Work Phone: [facility] Comment on above: Refill Request Start: 03-12-2023 Refill Williams Rubin MD Work Phone: [facility] Comment on above: Refill Request Start: 03-04-2023 Refill Williams Rubin MD Work Phone: [facility] Comment on above: Refill Request (One Touch Ultra Test Strips ) Start: 03-01-2023 End: 03-01-2023 Patient encounter procedure Williams Rubin MD Work Phone: [facility] Comment on above: Type 2 diabetes glenda itus with diabetic neuropathy, with long- term current use of insulin (HCC) (Primary Dx); Essential hypertension, benign; Coronary artery disease involving koi heart without angina pectoris, unspecified vessel or lesion type; Restless leg syndrome Start: 02-11-2023 Telephone encounter Williams apple MD Work Phone: [facility] Comment on above: Opened In Error Start: 01-29-2023 End: 01-29-2023 Patient encounter procedure Ronny Wheeler MD Work Phone: [facility] [place] Comment on above: NICM (nonischemic ca rdiomyopathy) (HCC) (Primary Dx); Cardiac resynchronization therapy defibrillator (SCRUBBER SYSTEM ATTENDANT-D) in place; Primary hypertension Start: 01-25-2023 End: 01-25-2023 ambulatory HOMAR VASQUES Facility:[facility] Start: 01-24-2023 Telephone encounter Jay qureshi DO Work Phone: [facility] Comment on above: REFERRAL (To [facility]) Start: 01-22-2023 End: 01-22-2023 Patient encounter procedure Jay Her DO Work Phone: [facility] Comment on above: Encounter to [facility] with new doctor (Primary Dx); Type 2 diabetes mellitus with diabetic neuropathy, with long-term current use of insulin (HCC); Screening for HIV (human immunodeficiency virus); Screening for diabetic retinopathy; Encounter for screening mammogram for breast cancer; Colon cancer screening; Essential hypertension, benign; Family history of colon cancer; Obesity, Class II, BMI 35-39.9; PAXTON (obstructive sleep apnea); Restless leg syndrome; GERD without esophagitis Start: 01-22-2023 Telephone encounter Ronny Wheeler MD Work Phone: [facility] [place] Comment on above: Appointment Start: 10-15-2022 ambulatory ABBEY OLIVEIRA [facility] Start: 10-15-2022 Refill Abbey Landaverde an MED SPA MANAGER Work Phone: [facility] Comment on above: Medication Refill Start: 10-12-2022 Orders Only Abbey Landaverde an MED SPA MANAGER Work Phone: [facility] Start: 10-10-2022 Refill Abbey Landaverde an MED SPA MANAGER Work Phone: [facility] Comment on above: Medication Refill Start: 10-09-2022 Refill Abbey Landaverde an MED SPA MANAGER Work Phone: [facility] Comment on above: Medication Refill Start: 10-04-2022 Refill Abbey Landaverde an MED SPA MANAGER Work Phone: [facility] Comment on above: Medication Refill Start: 09-19-2022 ambulatory CAM QUARLES [facility] Start: 09-19-2022 Encounter for gynecological examination (general) (routine) without abnormal findings CAM QUARLES [facility] Start: 09-18-2022 ambulatory Lisa Aj MD Facil ity:[facility] Start: 06-13-2022 ambulatory HA AVEALR [facility] Start: 05-05-2022 End: 05-07-2022 ambulatory PHYSICIAN NO [facility] Start: 05-02-2022 End: 05-02-2022 ambulatory Sly Nix DPM Facility:[facility] Start: 05-02-2022 End: 05-02-2022 Discharged Recurring STOCK CHECKERER Ha Avelar Work Phone: [facility] Start: 05-01-2022 End: 05-01-2022 ambulatory PHYSICIAN NO [facility] Ambulatory Start: 04-30-2022 End: 04-30-2022 Emergency department patient visit Ha Avelar Facility:[facility] Start: 04-30-2022 End: 04-30-2022 Emergency department patient visit STOCK CHECKERER Ha Avelar Work Phone: [facility] Start: 04-25-2022 Registered Recurring STOCK CHECKERER Ha Avelar Work Phone: [facility] Start: 04-23-2022 ambulatory PHYSICIAN NO [facility] Ambulatory Start: 04-20-2022 End: 04-21-2022 ambulatory MILKA RODRIGUEZ [facility] Start: 04-20-2022 End: 04-20-2022 Subsequent hospital visit by physician JAN SAUCEDOJACUMBAJoe Start: 04-09-2022 End: 04-09-2022 ambulatory PHYSICIAN NO [facility] Ambulatory Start: 04-09-2022 End: 04-09-2022 Office outpatient visit 25 minutes Milka Rodriguez MD Work Phone: [facility] Comment on above: Nonischemic cardiomy opathy (HCC) (Primary Dx); Benign essential HTN; HFrEF (heart failure with reduced ejection fraction) (HCC); Heart failure with preserved ejection fraction, unspecified HF chronicity (HCC) Start: 04-03-2022 Office outpatient vi sit 15 minutes SLY NIX DPM Work Phone: Sly Nix D.P.M. Work Phone: Start: 03-22-2022 End: 03-22-2022 ambulatory Ha Avelar Facility:[facility] Start: 03-22-2022 End: 03-22-2022 Patient encounter procedure STOCK CHECKERER Ha Avelar Work Phone: [facility] MED-Ultrasound Start: 03-08-[address] [facility] Start: 03-07-2022 End: 03-07-2022 ambulatory Ha Avelar Facility:[facility] Start: 03-07-2022 End: 03-07-2022 Patient encounter procedure STOCK CHECKERER Ha Avelar Work Phone: [facility]Reference Lab Start: 03-07-2022 End: 03-07-2022 ambulatory HA AVELAR [facility] Start: 03-01-2022 End: 03-02-2022 ambulatory DAVE PHAN [facility] Start: 03-01-2022 End: 03-01-2022 Subsequent hospital visit by physician Dave Phan MD Work Phone: [facility] Comment on above: Subclinical hyperthy roidism Start: 02-15-2022 Office outpatient vi sit 25 minutes [facility] Start: 02-06-2022 End: 02-06-2022 ambulatory Ha Avelar Facility:[facility] Start: 02-06-2022 End: 02-06-2022 Patient encounter procedure STOCK CHECKERER Ha Avelar Work Phone: [facility]Reference [facility] Start: 02-06-2022 End: 02-06-2022 ambulatory HA AVELAR [facility] Start: 01-30-2022 End: 01-30-2022 ambulatory PHYSICIAN [facility] Start: 01-25-2022 Office outpatient vi sit 25 minutes MATEO KUMAR Work Phone: Vlad Alaniz MD, [facility] Work Phone: Start: 01-23-2022 End: 01-23-2022 ambulatory HA AVELAR [facility] Start: 01-11-2022 Office outpatient vi sit 15 minutes SLY NIX DPM Work Phone: Naomi Lemos.P.M. Work Phone: Start: 12-12-2021 Office outpatient vi sit 25 minutes SLY NIX DPM Work Phone: Naomi Lemos.P.M. Work Phone: Start: 12-06-2021 Office outpatient vi sit 15 minutes [facility] Start: 11-24-2021 ambulatory PHYSICIAN NO [facility] Ambulatory Start: 11-21-2021 End: 11-21-2021 ambulatory Vlad Alaniz MD Facility:[facility] Start: 11-13-2021 Office outpatient vi sit 25 minutes SLY NIX DPM Work Phone: Gisselle LemosP.M. Work Phone: Start: 10-24-2021 End: 10-24-2021 ambulatory [facility] Start: 10-24-2021 End: 10-24-2021 ambulatory PHYSICIAN NO [facility] Start: 10-13-2021 Orders Only Juany Harden RN [facility] Comment on above: Nonischemic cardiomy opathy (HCC) (Primary Dx) Start: 10-13-2021 End: 10-13-2021 Office outpatient visit 15 minutes Abbey Oliveira CNP Work Phone: [facility] Comment on above: Nonischemic cardiomy opathy (HCC); Dyslipidemia; Benign essential HTN Start: 10-10-2021 End: 10-11-2021 [facility] Start: 10-10-2021 End: 10-10-2021 Subsequent hospital visit by physician Dave Phan MD Work Phone: [facility] Comment on above: Subclinical hyperthy roidism Start: 10-09-2021 Postop follow up vis it related to original px SLY NIX DPM Work Phone: Gisselle LemosP.M. Work Phone: Start: 10-05-2021 ambulatory Dave Phan Facili ty:[facility] Start: 10-03-2021 Office outpatient vi sit 25 minutes Vlad Alaniz MD Work Phone: Vlad Alaniz MD, [facility] Work Phone: Start: 09-28-2021 End: 09-28-2021 ambulatory DAVE PHAN [facility] Start: 09-18-2021 Postop follow up vis it related to original px SLY NIX DPM Work Phone: Sly Nix D.P.M. Work Phone: Start: 09-05-2021 Postop follow up vis it related to original px SLY NIX DPM Work Phone: Sly Nix D.P.M. Work Phone: Start: 08-30-2021 End: 09-06-2021 Patient encounter procedure Dave Phan MD Work Phone: [facility] Start: 08-25-2021 Postop follow up vis it related to original px SLY Hernandez BOYD DPM Work Phone: Sly Nix D.P.M. Work Phone: Start: 08-03-2021 Office outpatient vi sit 25 minutes Janice Efrain [facility] Start: 07-27-2021 Office outpatient vi sit 25 minutes SLY Hernandez BOYD DPM Work Phone: Sly Nix D.P.M. Work Phone: Start: 07-18-2021 End: 07-18-2021 ambulatory [facility] Start: 07-03-2021 Postop follow up vis it related to original px SLY Hernandez BOYD DPM Work Phone: Sly Nix D.P.M. Work Phone: Start: 06-20-2021 Postop follow up vis it related to original px SLY Hernandez BOYD DPM Work Phone: Sly Nix D.P.M. Work Phone: Start: 06-13-2021 Postop follow up vis it related to original px SLY Hernandez BOYD DPM Work Phone: Sly Nix D.P.M. Work Phone: Start: 05-11-2021 Office outpatient vi sit 25 minutes Janice Zuniga [facility] Start: 05-04-2021 Office outpatient vi sit 25 minutes SLY NIX DPM Work Phone: Naomi Lemos.P.M. Work Phone: Start: 03-30-2021 Office outpatient vi sit 15 minutes SLY NIX DPM Work Phone: Naomi Lemos.P.M. Work Phone: Start: 03-14-2021 Refill Abbey chavez MED SPA MANAGER Work Phone: [facility] Comment on above: Medication Refill Start: 02-15-2021 Office outpatient vi sit 25 minutes Janice Zuniga [facility] Start: 01-25-2021 Office outpatient vi sit 15 minutes MATEO KUMAR Work Phone: Vlad Alaniz MD, [facility] Work Phone: Start: 01-12-2021 Office outpatient vi sit 15 minutes SLY NIX DPM Work Phone: Sly Nix D.P.M. Work Phone: Start: 12-19-2020 End: 12-19-2020 Refill Abbey Oliveira CNP Work Phone: [facility] Comment on above: Medication Refill Start: 12-14-2020 Office outpatient vi sit 25 minutes THOMAS SILVA MD Work Phone: [facility] Work Phone: Start: 11-21-2020 End: 11-21-2020 Refill Abbey Oliveira CNP Work Phone: [facility] Comment on above: Medication Refill Start: 11-17-2020 Office outpatient vi sit 10 minutes THOMAS SILVA MD Work Phone: [facility] Work Phone: Start: 11-17-2020 Office outpatient vi sit 15 minutes SLY NIX DPM Work Phone: Gisselle LemosP.M. Work Phone: Start: 11-01-2020 Office outpatient vi sit 15 minutes SLY NIX DPM Work Phone: Gisselle LemosPMiguelinaM. Work Phone: Start: 10-27-2020 Office outpatient vi sit 15 minutes THOMAS SILVA MD Work Phone: [facility] Work Phone: Start: 10-25-2020 End: 10-25-2020 Refill Abbey Oliveira Work Phone: [facility] Comment on above: Medication Refill Start: 10-13-2020 Office outpatient vi sit 15 minutes SLY NIX DPM Work Phone: Gisselle LemosP.M. Work Phone: Start: 10-07-2020 End: 10-07-2020 Office outpatient visit 25 minutes Milka Sullivankatie Rodriguez Work Phone: [facility] Comment on above: ICD (implantable car dioverter-defibrillator) in place (Primary Dx); Nonischemic cardiomyopathy (HCC); Dyslipidemia; Preoperative cardiovascular examination Start: 09-21-2020 End: 09-21-2020 Orders Only Barbara Martinez Work Phone: [facility] Start: 07-29-2020 End: 07-29-2020 Orders Only Abbey Oliveira Work Phone: [facility] Comment on above: Benign essential HTN (Primary Dx) Medication Refill Start: 06-07-2020 End: 06-07-2020 Subsequent hospital visit by physician Nick Branch Work Phone: [facility] Comment on above: Arrived Start: 04-05-2020 End: 04-05-2020 Office outpatient visit 15 minutes Abbey Oliveira Work Phone: [facility] Comment on above: Nonischemic cardiomy opathy (HCC) Start: 03-01-2020 End: 03-01-2020 Subsequent hospital visit by physician Nick Branch Work Phone: [facility] Comment on above: Arrived Start: 12-29-2019 End: 12-29-2019 Documentation procedure Marlene D Cecil [facility] Start: 12-29-2019 End: 12-29-2019 Office outpatient visit 10 minutes Abbey Oliveira Work Phone: [facility] Comment on above: PAXTON (obstructive sle ep apnea) (Primary Dx); Nonischemic cardiomyopathy (HCC) Start: 12-15-2019 End: 12-15-2019 Office outpatient visit 15 minutes Abbey Oliveira Work Phone: [facility] Comment on above: MCKNIGHT (dyspnea on exer tion) (Primary Dx); Nonischemic cardiomyopathy (HCC) Start: 09-01-2019 End: 09-01-2019 Orders Only Unspecified Provider [facility] Start: 09-01-2019 End: 09-01-2019 Telephone encounter Ha Avelar Work Phone: [facility] Comment on above: Other Start: 08-26-2019 End: 08-26-2019 Telephone encounter Ha Avelar Work Phone: [facility] Comment on above: Other Start: 08-21-2019 End: 08-21-2019 Documentation procedure Nilam Garrett [facility] Start: 08-21-2019 End: 08-21-2019 Office outpatient new 45 minutes David Silva Work Phone: [facility] Comment on above: Benign essential HTN ; Dyslipidemia; Pre-operative cardiovascular examination; Pacemaker; Nonischemic cardiomyopathy (HCC); ICD (implantable cardioverter-defibrillator) in place; Gastroesophageal reflux disease without esophagitis; Depression, unspecified depression type; Establishing care with new doctor, encounter for; MCKNIGHT (dyspnea on exertion) Start: 08-18-2019 End: 08-18-2019 Orders Only Unspecified Provider [facility] Start: 08-18-2019 End: 08-18-2019 Office outpatient visit 15 minutes Ha Avelar Work Phone: [facility] Comment on above: Pre-operative cleara nce (Primary Dx); Other eczema Start: 08-13-2019 End: 08-13-2019 Letter encounter Kim Perera [facility] Start: 08-11-2019 End: 08-11-2019 Refill Ha Avelar Work Phone: [facility] Comment on above: Type 2 diabetes glenda itus without complication, without long- term current use of insulin (HCC) Start: 08-11-2019 End: 08-11-2019 Telephone encounter Ha Avelar Work Phone: [facility] Comment on above: Surgical Clearance Start: 08-03-2019 End: 08-03-2019 Refill Ha Avelar Work Phone: [facility] Comment on above: Type 2 diabetes glenda itus without complication, without long- term current use of insulin (HCC) Start: 08-03-2019 End: 08-03-2019 Refill Ha Avelar Work Phone: [facility] Comment on above: Type 2 diabetes glenda itus without complication, with long-term current use of insulin (HCC) (Primary Dx); Type 2 diabetes mellitus without complication, without long-term current use of insulin (HCC) Start: 07-31-2019 End: 07-31-2019 Refill Keshia Sterling Work Phone: [facility] Comment on above: Trichomonal vaginiti s (Primary Dx) Start: 07-28-2019 End: 07-28-2019 Periodic preventive med est patient 40-64yrs Keshia Sterling Work Phone: [facility] Comment on above: Well woman exam with routine gynecological exam (Primary Dx); BMI 33.0-33.9,adult; Screen for STD (sexually transmitted disease); Stress incontinence Start: 05-30-2018 End: 05-30-2018 Patient encounter procedure LETICIA [facility] Start: 03-29-2017 End: 03-29-2017 [facility] Janice Zuniga [facility] Procedures Date Procedure Procedure Detail Performing Clinician Start: 12-15-2024 Mean corpuscular hemoglobin concentration determination Dr. Lisseth Peñaloza MD Work Phone: Start: 12-15-2024 Platelet mean volume determination Dr. Lisseth Peñaloza MD Work Phone: Start: 12-08-2024 Mean corpuscular hemoglobin concentration determination Dr. Lisseth Peñaloza MD Work Phone: Start: 12-08-2024 Platelet mean volume determination Dr. Lisseth Peñaloza MD Work Phone: Start: 12-01-2024 Mean corpuscular hemoglobin concentration determination No Primary Care Physician Start: 12-01-2024 Platelet mean volume determination No Primary Care Physician Start: 11-27-2024 X-ray of chest, PA a nd lateral views No Primary Care Physician Start: 11-25-2024 Blood count smear mc rscp w/mnl difrntl wbc count No Primary Care Physician Start: 11-25-2024 Estimated creatinine clearance No Primary Care Physician Start: 11-25-2024 Mean corpuscular hemoglobin concentration determination No Primary Care Physician Start: 11-25-2024 Nucleated red blood cell count procedure No Primary Care Physician Start: 11-25-2024 Platelet mean volume determination No Primary Care Physician Start: 11-23-2024 Blood culture No Primar y Care Physician Start: 11-21-2024 Blood culture No Primar y Care Physician Start: 11-21-2024 Assay of lactate No Marilia josephine Care Physician Start: 11-20-2024 Computed tomography of abdomen and pelvis with intravenous contrast No Primary Care Physician Start: 11-20-2024 Plain chest X-ray No Pr imary Care Physician Start: 11-20-2024 Calculation of international normalized ratio No Primary Care Physician Start: 11-20-2024 Estimated creatinine clearance No Primary Care Physician Start: 11-20-2024 Urine microscopy: re d cells No Primary Care Physician Start: 11-20-2024 Urnls dip stick/tabl et reagent auto microscopy No Primary Care Physician Start: 11-20-2024 CT of head without contrast No Primary Care Physician Start: 11-20-2024 CT of lumbar spine No P rimary Care Physician Start: 11-20-2024 Blood culture No Primar y Care Physician Start: 11-20-2024 Identification proce dure for living organism No Primary Care Physician Start: 11-20-2024 Nucleic acid assay No P rimary Care Physician Start: 11-20-2024 SARS-CoV-2, Influenz a & RSV (PCR) No Primary Care Physician Start: 11-20-2024 Urine culture No Primar y Care Physician Start: 11-20-2024 No Primary Care Physician Start: 08-26-2024 Microalbuminuria measurement No Primary Care Physician Start: 08-26-2024 Urine microalbumin/creatinine ratio measurement No Primary Care Physician Start: 08-26-2024 Albumin/Globulin ratio No Primary Care Physician Start: 08-26-2024 Anion gap measurement N o Primary Care Physician Start: 08-26-2024 Blood count smear mc rscp w/mnl difrntl wbc count No Primary Care Physician Start: 08-26-2024 BUN/Creatinine ratio No Primary Care Physician Start: 08-26-2024 Mean corpuscular hemoglobin concentration determination No Primary Care Physician Start: 08-26-2024 Measurement of renal function No Primary Care Physician Comment on above: GFR Calc Start: 08-26-2024 Nucleated red blood cell count procedure No Primary Care Physician Start: 08-26-2024 Platelet mean volume determination No Primary Care Physician Start: 08-26-2024 Vitamin D, 25-hydrox y measurement No Primary Care Physician Comment on above: Vitamin D 25(OH) Sta tus Range Deficiency <20 ng/mL (50nmol/L) Insufficiency 20 - 30 ng/mL (50 - 75 nmol/L) Sufficiency 30 - 100 ng/mL (75 - 250 nmol/L) Toxicity >100 ng/mL (>250 nmol/L) Start: 01-29-2024 Adult depression scr eening assessment Williams Rubin MD Work Phone: Start: 12-24-2023 Hemoglobin A1c/Hemoglobin.total in Blood Manny Evans MD Work Phone: Start: 10-22-2023 ICD REMOTE CHECK Ronny Wheeler MD Work Phone: Start: 08-30-2023 Hemoglobin A1c/Hemoglobin.total in Blood Williams Rubin MD Work Phone: Start: 04-03-2023 ICD CLINIC CHECK Ronny Wheeler MD Work Phone: Start: 01-29-2023 Ecg routine ecg w/le ast 12 lds w/i&r Ronny Wheeler MD Work Phone: Start: 01-22-2023 Hemoglobin A1c/Hemoglobin.total in Blood Jay Her DO Work Phone: Start: 05-04-2022 Ther behav svc, per 15 min [employer] Start: 05-01-2022 Ther behav svc, per 15 min [employer] Start: 05-01-2022 Follow-up visit Follow-up ALFREDO OLIVEIRA Start: 04-27-2022 Ther behav svc, per 15 min [employer] Start: 04-25-2022 Ther behav svc, per 15 min Janice Efrain Start: 04-20-2022 Basic metabolic pane l calcium total MILKA RODRIGUEZ Start: 04-20-2022 BRAIN NATRIURETIC PEPTIDE MILKA RODRIGUEZ Start: 04-20-2022 Basic metabolic pane l calcium total Unknown Provider Result Start: 04-09-2022 Ther behav svc, per 15 min [employer] Start: 04-03-2022 Debridement nail any method 6/> SLY NIX DPM Work Phone: Start: 04-03-2022 Debridement open wou nd 20 sq cm/< SLY NIX DPM Work Phone: Start: 04-03-2022 Debridement subcutan eous tissue 20 sq cm/< SLY NIX DPM Work Phone: Start: 04-03-2022 Ther behav svc, per 15 min Janice Efrain Start: 03-22-2022 Ther behav svc, per 15 min Janice Efrain Start: 03-22-2022 Ultrasonography of liver STOCK CHECKERER Ha Evelyn Work Phone: Start: 03-21-2022 Ther behav svc, per 15 min Janice Efrain Start: 03-08-2022 Ther behav svc, per 15 min Janice Efrain Start: 03-01-2022 Ther behav svc, per 15 min Janice Efrain Start: 03-01-2022 Assay of free thyroxine Dave Phan MD Work Phone: Start: 02-15-2022 Ther behav svc, per 15 min Janice Efrain Start: 02-06-2022 Ther behav svc, per 15 min Janice Efrain Start: 02-01-2022 Ther behav svc, per 15 min Janice Efrain Start: 01-23-2022 3 comp foot exam completed Dave Phan MD Work Phone: Start: 01-23-2022 Adult depression scr eening assessment Dave Phan MD Work Phone: Start: 01-23-2022 Microalbumin [Mass/v olume] in Urine by Test strip Milka Rodriguez MD Work Phone: Start: 01-09-2022 Ther behav svc, per 15 min Janice Efrain Start: 01-05-2022 Ther behav svc, per 15 min Janice Efrain Start: 12-27-2021 Ther behav svc, per 15 min Janice Efrain Start: 12-12-2021 Debridement nail any method 6/> SLY NIX DPM Work Phone: Start: 12-12-2021 Radex ankle complete minimum 3 views SLY NIX DPM Work Phone: Start: 12-12-2021 Ther behav svc, per 15 min Janice Efrain Start: 12-06-2021 Psysoc rehab svc, pe r 15 min Janice Efrain Start: 12-04-2021 Ther behav svc, per 15 min Janice Efrain Start: 11-23-2021 Polysom 6/>yrs sleep w/cpap 4/> addl karen teresa Alaniz MD Work Phone: Start: 11-22-2021 Ther behav svc, per 15 min Janice Efrain Start: 11-16-2021 Ther behav svc, per 15 min Janice Efrain Start: 11-15-2021 Ther behav svc, per 15 min Janice Efrain Start: 10-17-2021 Ther behav svc, per 15 min Janice Efrain Start: 10-13-2021 Ther behav svc, per 15 min Janice Efrain Start: 10-13-2021 Ecg routine ecg w/le ast 12 lds w/i&r Abbey Oliveira MED SPA MANAGER Work Phone: Start: 10-10-2021 Ther behav svc, per 15 min Janice Efrain Start: 10-10-2021 Assay of free thyroxine Dave Phan MD Work Phone: Start: 09-28-2021 Ther behav svc, per 15 min Janice Efrain Start: 09-15-2021 Ther behav svc, per 15 min Janice Efrain Start: 09-12-2021 Ther behav svc, per 15 min Janice Efrain Start: 09-06-2021 Ther behav svc, per 15 min Janice Efrain Start: 09-06-2021 Adult depression scr eening assessment Dave Phan MD Work Phone: Start: 08-31-2021 Ther behav svc, per 15 min Janice Efrain Start: 08-30-2021 Ther behav svc, per 15 min Janice Efrain Start: 08-28-2021 Ther behav svc, per 15 min Janice Efrian Start: 08-21-2021 Ostectomy calcaneus ASA NIX DPM Work Phone: Start: 08-21-2021 Repair secondary ach illes tendon w/wo graft SLY NIX DPM Work Phone: Start: 08-21-2021 Ther behav svc, per 15 min Janice Efrain Start: 08-16-2021 Ther behav svc, per 15 min Janice Efrain Start: 08-15-2021 Ther behav svc, per 15 min Janice Efrain Start: 08-10-2021 Ther behav svc, per 15 min Janice Efrain Start: 08-09-2021 Ther behav svc, per 15 min Janice Efrain Start: 08-08-2021 Ther behav svc, per 15 min Janice Efrain Start: 08-03-2021 Ther behav svc, per 15 min Janice Efrain Start: 07-27-2021 Debridement nail any method 6/> SLY NIX DPM Work Phone: Start: 07-20-2021 Ther behav svc, per 15 min Janice Efrain Start: 07-19-2021 Ther behav svc, per 15 min Janice Efrain Start: 2021 Ther behav svc, per 15 min Janice Efrain Start: 07-06-2021 Ther behav svc, per 15 min Janice Efrain Start: 07-05-2021 Ther behav svc, per 15 min Janice Efrain Start: 06-30-2021 Ther behav svc, per 15 min Janice Efrain Start: 06-27-2021 Ther behav svc, per 15 min Janice Efrain Start: 06-22-2021 Ther behav svc, per 15 min Janice Efrain Start: 06-20-2021 Radex foot complete minimum 3 views SLY NIX DPM Work Phone: Start: 06-20-2021 Ther behav svc, per 15 min Janice Efrain Start: 06-16-2021 Ther behav svc, per 15 min Janice Efrain Start: 06-14-2021 Ther behav svc, per 15 min Janice Efrain Start: 06-13-2021 Ther behav svc, per 15 min Janice Efrain Start: 06-07-2021 Ther behav svc, per 15 min Janice Efrain Start: 06-06-2021 Ther behav svc, per 15 min Janice Efrain Start: 06-05-2021 Ostectomy calcaneus ASA NIX DPM Work Phone: Start: 06-05-2021 Repair secondary ach illes tendon w/wo graft SLY NIX DPM Work Phone: Start: 05-30-2021 Ther behav svc, per 15 min Janice Efrain Start: 05-29-2021 Ther behav svc, per 15 min Janice Efrain Start: 05-26-2021 Ther behav svc, per 15 min Janice Efrain Start: 05-24-2021 Ther behav svc, per 15 min Janice Efrain Start: 05-22-2021 Ther behav svc, per 15 min Janice Efrain Start: 05-19-2021 Ther behav svc, per 15 min Janice Efrain Start: 05-17-2021 Ther behav svc, per 15 min Janice Efrain Start: 05-16-2021 Ther behav svc, per 15 min Janice Efrain Start: 05-11-2021 Ther behav svc, per 15 min Janice Efrain Start: 05-10-2021 Ther behav svc, per 15 min Janice Efrain Start: 05-09-2021 Ther behav svc, per 15 min Janice Efrain Start: 05-04-2021 Radex foot complete minimum 3 views SLY NIX DPM Work Phone: Start: 05-04-2021 Ther behav svc, per 15 min Janice Efrain Start: 05-03-2021 Ther behav svc, per 15 min Janice Efrain Start: 04-27-2021 Ther behav svc, per 15 min Janice Efrain Start: 04-24-2021 Ther behav svc, per 15 min Janice Efrain Start: 04-19-2021 Ther behav svc, per 15 min Janice Efrain Start: 04-12-2021 Ther behav svc, per 15 min Janice Efrain Start: 04-05-2021 Ther behav svc, per 15 min Janice Efrain Start: 04-04-2021 Ther behav svc, per 15 min Janice Efrain Start: 03-30-2021 Debridement nail any method 6/> SLY NIX DPM Work Phone: Start: 02-15-2021 Psysoc rehab svc, pe r 15 min Janice Efrain Start: 02-08-2021 Ther behav svc, per 15 min Janice Efrain Start: 02-06-2021 Ther behav svc, per 15 min Janice Efrain Start: 02-03-2021 Ther behav svc, per 15 min Janice Efrain Start: 02-01-2021 Ther behav svc, per 15 min Janice Efrain Start: 01-30-2021 Ther behav svc, per 15 min Janice Efrain Start: 01-26-2021 Ther behav svc, per 15 min Janice Efrain Start: 01-25-2021 Ther behav svc, per 15 min Janice Efrain Start: 01-23-2021 Ther behav svc, per 15 min Janice Efrain Start: 01-12-2021 Debridement nail any method 6/> SLY NIX DPM Work Phone: Start: 01-12-2021 Ther behav svc, per 15 min Janice Efrain Start: 01-09-2021 Ther behav svc, per 15 min Janice Efrain Start: 12-28-2020 Ther behav svc, per 15 min Janice Efrain Start: 12-19-2020 Antibody screen Ha Evelyn DURAN Work Phone: Start: 12-15-2020 Ther behav svc, per 15 min Janice Efrain Start: 12-08-2020 Ther behav svc, per 15 min Janice Efrain Start: 12-06-2020 Ther behav svc, per 15 min Janice Efrain Start: 12-05-2020 Ther behav svc, per 15 min Janice Efrain Start: 12-02-2020 Ther behav svc, per 15 min Janice Efrain Start: 11-24-2020 Psysoc rehab svc, pe r 15 min Janice Efrain Start: 11-24-2020 Ther behav svc, per 15 min Janice Efrain Start: 11-18-2020 Ther behav svc, per 15 min Janice Efrain Start: 11-17-2020 Paring/cutting benig n hyperkeratotic lesion 1 SLY NIX DPM Work Phone: Start: 11-17-2020 Ther behav svc, per 15 min Janice Efrain Start: 11-16-2020 Ther behav svc, per 15 min Janice Efrain Start: 11-15-2020 Polysom 6/>yrs sleep w/cpap 4/> addl karen teresa Alaniz MD Work Phone: Start: 11-14-2020 Ther behav svc, per 15 min Janice Efrain Start: 11-11-2020 Ther behav svc, per 15 min Janice Efrain Start: 11-09-2020 Ther behav svc, per 15 min Janice Efrain Start: 11-04-2020 Ther behav svc, per 15 min Janice Efrain Start: 11-02-2020 Ther behav svc, per 15 min Janice Efrain Start: 11-01-2020 Paring/cutting benig n hyperkeratotic lesion 1 SLY Hernandez BOYD DPM Work Phone: Start: 11-01-2020 Ther behav svc, per 15 min Janice Efrain Start: 10-27-2020 Ther behav svc, per 15 min Janice Efrain Start: 04-14-2021 Ther behav svc, per 15 min Janice Efrain Start: 10-25-2020 Ther behav svc, per 15 min Janice Zuniga Start: 10-20-2020 Ther behav svc, per 15 min Janice Zuniga Start: 10-13-2020 Debridement nail any method 6/> SLY NIX DPM Work Phone: Start: 10-13-2020 Ther behav svc, per 15 min Janice Zuniga Start: 10-07-2020 12 lead ECG Milka Rodriguez Work Phone: Start: 09-08-2020 3 comp foot exam completed Dave Phan MD Work Phone: Start: 09-08-2020 Microalbumin [Mass/v olume] in Urine by Test strip Barbara Martinez Start: 02-13-2020 Ophthalmic examinati on and evaluation Dave Phan MD Work Phone: Start: 11-30-2019 Microalbumin [Mass/v olume] in Urine by Test strip Abbey Oliveira Start: 09-01-2019 HGB A1C WITH MBG CANDIDO UE (EXTERNAL) Unspecified Provider Start: 08-21-2019 12 lead ECG Milka Rodriguez Work Phone: Start: 08-18-2019 CBC WITH AUTO DIFF (EXTERNAL) Unspecified Provider Start: 08-18-2019 Comprehensive metabo lic 2000 panel Unspecified Provider Start: 08-18-2019 Adult depression scr eening assessment Ha Avelar Start: 07-28-2019 Adult depression scr eening assessment Keshia Sterling Start: 06-01-2019 3 comp foot exam completed Keshia Sterling Start: 05-28-2019 Mammography Keshia Sterling Start: 12-13-2018 Ophthalmic examinati on and evaluation Keshia Sterling Start: 12-03-2017 Mammography Ronny simmons MD Work Phone: Start: 09-27-2016 Colonoscopy Ronny simmons MD Work Phone: Start: 09-04-2016 End: 09-04-2016 *CMP Complete Metabolic Panel Lissette Banerjee NP Work Phone: Start: 09-04-2016 End: 09-04-2016 *Microalbumin, Creatine Ratio, rand urine Lissette Banerjee NP Work Phone: Start: 09-04-2016 End: 09-07-2016 1,25-Dihydroxyvitamin D [Mass/volume] in Serum or Plasma Lissette Banerjee NP Work Phone: Start: 09-04-2016 End: 09-04-2016 Hemoglobin A1c/Hemoglobin.total in Blood Lissette Banerjee NP Work Phone: Start: 09-04-2016 End: 09-04-2016 Lipid 1996 panel - Serum or Plasma Lissette Banerjee NP Work Phone: Start: 09-04-2016 End: 09-04-2016 Thyrotropin [Units/volume] in Serum or Plasma Lissette Banerjee NP Work Phone: Start: 05-10-2015 End: 05-10-2015 [facility] ICD Device Program Eval multi Jean Trujillo MD Start: 01-31-2015 End: 01-31-2015 Prgrmg eval implantable in person multi lead dfb Shawanda Keane PARuddy Work Phone: Start: 10-28-2014 End: 10-28-2014 Prgrmg eval implantable in person multi lead dfb Jean Trujillo MD Start: 07-28-2014 End: 07-28-2014 Prgrmg eval implantable in prsn dual lead dfb Jean Trujillo MD Start: 04-26-2014 End: 04-26-2014 Prgrmg eval implantable in person multi lead dfb Edgard Roberts MD Start: 03-16-2014 End: 03-16-2014 DRAG SEINER Shawanda Keane PARuddy Work Phone: Start: 03-16-2014 End: 03-16-2014 Ecg routine ecg w/least 12 lds w/i&r Shawanda Keane PA-C Work Phone: Start: 03-16-2014 End: 03-16-2014 Follow Up Appt 4 months Shawanda alejandre PA-C Work Phone: Start: 01-22-2014 End: 02-26-2014 Follow Up Appt 3 months Shawanda alejandre PA-C Work Phone: Start: 01-22-2014 End: 02-26-2014 Pacer Clinic Shawanda Keane PA-C Work Phone: Start: 01-22-2014 End: 01-22-2014 Prgrmg eval implantable in person multi lead dfb Shawanda Keane PA-C Work Phone: Start: 11-26-2013 End: 11-26-2013 Follow Up Appt 3 months Shanell Mooney Start: 11-26-2013 End: 11-26-2013 MM Jean Trujillo MD Start: 10-21-2013 End: 02-26-2014 Follow Up Appt 3 months Shanell Mooney Start: 10-21-2013 End: 02-26-2014 Pacer Clinic Jean Trujillo MD Start: 10-21-2013 End: 10-21-2013 Prgrmg eval implantable in person multi lead dfb Jean Trujillo MD Start: 09-10-2013 End: 02-26-2014 Follow Up Appt 1 month Jean Trujillo MD Start: 09-10-2013 End: 09-10-2013 Nurse, Teaching, Wound Check (no charge) Jean Trujillo MD Start: 09-10-2013 End: 02-26-2014 [facility] Jean Trujillo MD Start: 08-21-2013 End: 08-21-2013 DRAG SEINERJose Trujillo MD Start: 08-21-2013 End: 08-21-2013 Follow Up Appt 3 months Shanell Mooney Start: 06-18-2013 End: 06-18-2013 JUAN Keane PA-C Work Phone: Start: 06-18-2013 End: 02-26-2014 Jakob Keane PA-C Work Phone: Start: 06-18-2013 End: 06-18-2013 Follow Up Appt 2 months Shawanda alejandre PA-C Work Phone: Start: 05-06-2013 End: 05-06-2013 *BMP Jean Trujillo MD Start: 05-06-2013 End: 02-26-2014 *Hepatic Function Panel Shanell Mooney Start: 05-06-2013 End: 06-09-2013 Follow Up Appt 6 weeks Jean Trujillo MD Start: 05-06-2013 End: 05-06-2013 MMM Jean Trujillo MD Screening for malign ant neoplasm of cervix Z12.4 - Encounter for screening for malignant neoplasm of cervix No Primary Care Physician Plan of Treatment Date Care Activity Detail Author Start: 04-30-2032 Tetanus vaccination Tetanus: Every 10yrs [facility] Start: 04-30-2032 Urine microalbumin profile [facility] Start: 2031 Pneumococcal Vaccine: Ped or At-Risk (2 of 2 - PPSV23) Pneumococcal Vaccine: Ped or At-Risk (2 of 2 - PPSV23) [facility] Start: 04-22-2029 Administration of diphtheria + tetanus + acellular pertussis vaccine DTAP/TDAP/TD VACCINE (2 - Td or Tdap) [facility] Start: 04-22-2029 Diphtheria + pertussis + tetanus vaccine (product) DTAP/TDAP/TD VACCINE (2 - Td or Tdap) [facility] Start: 04-22-2029 Tetanus vaccination [facility] Start: 04-22-2029 Tetanus, diphtheria and acellular pertussis vaccination TDAP/TD ADULT [facility] Start: 02-25-2025 BP Controlled (<130/80) BP Controlled (<130/80) [facility] Start: 01-28-2025 BP Controlled (<130/80) BP Controlled (<130/80) [facility] Start: 01-28-2025 Depression Screening Depression Screening [facility] Start: 12-23-2024 Annual PCP Team Chronic Disease Visit Annual PCP Team Chronic Disease Visit [facility] Start: 12-23-2024 BP Controlled (<130/80) BP Controlled (<130/80) [facility] Start: 11-28-2024 [facility] Start: 11-26-2024 Patient discharge [facility] Start: 11-26-2024 Referral to service [facility] Start: 11-23-2024 Blood culture [facility] Start: 11-23-2024 [facility] Start: 11-23-2024 Consultation [facility] Start: 11-21-2024 [facility] Start: 11-21-2024 End: 11-21-2024 [facility] Start: 11-20-2024 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 to 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 union teller [facility] Start: 11-20-2024 Following clinical pathway protocol [facility] Start: 11-20-2024 Assessment of risk of venous thromboembolism [facility] Start: 11-20-2024 Care regimes management [facility] Start: 11-20-2024 Catheterization of vein [facility] Start: 11-20-2024 Consultation [facility] Start: 11-20-2024 Elevation of head of bed [facility] Start: 11-20-2024 Insertion of catheter into peripheral vein [facility] Start: 11-20-2024 Measuring intake and output [facility] Start: 11-20-2024 Notification of physician [facility] Start: 11-20-2024 Providing care according to standard [facility] Start: 11-20-2024 Referral to occupational therapist [facility] Start: 11-20-2024 Referral to service [facility] Start: 11-20-2024 Vital signs measurements [facility] Start: 11-20-2024 End: 11-20-2024 [facility] Start: 11-20-2024 Admission procedure [facility] Start: 11-20-2024 Verification routine [facility] Start: 11-20-2024 Hospital admission, emergency, from emergency room, medical nature [facility] Start: 11-20-2024 End: 11-20-2024 [facility] Start: 11-20-2024 Bacteria identified in Blood by Culture Blood Culture [facility] Start: 11-20-2024 Bacteria identified in Urine by Culture Urine Culture [facility] Start: 11-20-2024 Inhalation therapy procedure [facility] Start: 11-20-2024 Patient referral to dietitian [facility] Start: 11-13-2024 BP Controlled (<130/80) BP Controlled (<130/80) [facility] Start: 11-07-2024 End: 11-07-2024 [facility] Start: 09-11-2024 BP Controlled (<130/80) BP Controlled (<130/80) [facility] Start: 09-07-2024 Patient referral [facility] Work Phone: Start: 08-30-2024 Annual PCP Team Chronic Disease Visit Annual PCP Team Chronic Disease Visit [facility] Start: 08-30-2024 BP Controlled (<130/80) BP Controlled (<130/80) [facility] Start: 08-30-2024 Diabetic foot examination Diabetic Foot Exam [facility] Start: 08-17-2024 Screening for malignant neoplasm of colon [facility] Start: 08-05-2024 Patient referral [facility] Work Phone: Start: 05-20-2024 Annual PCP Team Chronic Disease Visit Annual PCP Team Chronic Disease Visit [facility] Start: 05-20-2024 BP Controlled (<130/80) BP Controlled (<130/80) [facility] Start: 04-30-2024 Hemoglobin A1c measurement HbA1C [facility] Start: 04-28-2024 End: 04-28-2024 Patient encounter procedure 04/28/2024 8:00 AM EDT Procedure [facility] [address] [place] [address] ICD/SV [facility] Comment on above: ICD/SV Start: 04-14-2024 End: 04-14-2024 Patient encounter procedure 04/14/2024 10:40 AM EDT Office Visit [facility] [address] [facility] [place] [address] Williams Rubin MD [address] [place] [address] Annual wellness [facility] Comment on above: Annual wellness Start: 04-08-2024 End: 07-08-2024 Basic metabolic 2000 panel - Serum or Plasma BASIC METABOLIC PANEL Lab Routine Medication management Expected: 04/08/2024, Expires: 07/08/2024 [facility] Work Phone: Comment on above: Expected: 04/08/2024, Expires: Start: 04-08-2024 End: 07-08-2024 Lipid 1996 panel - Serum or Plasma LIPID PANEL BASIC Lab Routine Medication management Expected: 04/08/2024, Expires: 07/08/2024 [facility] Comment on above: Expected: 04/08/2024, Expires: Start: 04-05-2024 Glaucoma screening Dilated Retinal Exam [facility] Start: 04-05-2024 Hepatitis C antibody, confirmatory test Dilated Retinal Exam [facility] Start: 04-03-2024 End: 04-03-2024 Patient encounter procedure 04/03/2024 11:00 AM EDT Procedure [facility] [address] [facility] [address] bivicd/bsci/sv [facility] Comment on above: bivicd/bsci/sv Start: 04-02-2024 End: 04-02-2024 Patient encounter procedure 04/02/2024 2:20 PM EDT Office Visit [facility] [address] [place] [address] Cfm, Pharm D [facility] [address] [place] [address] Follow up in 4 weeks [facility] Comment on above: Follow up in 4 weeks Start: 03-29-2024 Annual PCP Team Chronic Disease Visit Annual PCP Team Chronic Disease Visit [facility] Start: 03-25-2024 Hemoglobin A1c measurement HbA1C [facility] Start: 03-15-2024 ANNUAL PCP TEAM CHRONIC DISEASE VISIT ANNUAL PCP TEAM CHRONIC DISEASE VISIT [facility] Start: 03-15-2024 Covid-19 Vaccine () Covid-19 Vaccine () [facility] Start: 03-15-2024 Influenza vaccination Influenza Vaccine (#1) [facility] Start: 03-10-2024 End: 06-09-2024 Basic metabolic 2000 panel - Serum or Plasma BASIC METABOLIC PANEL Lab Routine Medication monitoring encounter Expected: 03/10/2024, Expires: 06/09/2024 [facility] Work Phone: Comment on above: Expected: 03/10/2024, Expires: Start: 03-10-2024 End: 06-09-2024 Lipid 1996 panel - Serum or Plasma LIPID PANEL BASIC Lab Routine Medication monitoring encounter Expected: 03/10/2024, Expires: 06/09/2024 [facility] Comment on above: Expected: 03/10/2024, Expires: Start: 03-07-2024 End: 06-06-2024 Basic metabolic 2000 panel - Serum or Plasma BASIC METABOLIC PANEL Lab Routine Medication management Expected: 03/07/2024, Expires: 06/06/2024 [facility] Work Phone: Comment on above: Expected: 03/07/2024, Expires: Start: 03-03-2024 End: 03-03-2024 Patient encounter procedure 03/03/2024 4:00 PM EDT Procedure [facility] [address] [place] [address] bivicd/bsci/sv [facility] Comment on above: bivicd/bsci/sv Start: 03-01-2024 3 comp foot exam completed DIABETIC FOOT EXAM [facility] Start: 03-01-2024 ANNUAL PCP TEAM CHRONIC DISEASE VISIT ANNUAL PCP TEAM CHRONIC DISEASE VISIT [facility] Start: 03-01-2024 Diabetic foot examination Diabetic Foot Exam [facility] Start: 02-26-2024 End: 05-27-2024 Lipid 1996 panel - Serum or Plasma LIPID PANEL BASIC Lab Routine Type 2 diabetes mellitus with diabetic neuropathy, with long-term current use of insulin (HCC) Expected: 02/26/2024, Expires: 05/27/2024 [facility] Work Phone: Comment on above: Expected: 02/26/2024, Expires: 4 Start: 02-26-2024 End: 05-27-2024 Microalbumin/Creatinine [Mass Ratio] in Urine ALBUMIN/CREATININE RATIO, URINE Lab Routine Type 2 diabetes mellitus with diabetic neuropathy, with long-term current use of insulin (HCC) Expected: 02/26/2024, Expires: 05/27/2024 [facility] Comment on above: Expected: 02/26/2024, Expires: Start: 02-26-2024 End: 02-26-2024 Patient encounter procedure 02/26/2024 2:00 PM EDT [address] [address] C[facility], Pharm D [facility] [address] [place] [address] 3-4 weeks, telephone is fine [facility] Comment on above: 3-4 weeks, telephone is sushil Start: 01-30-2024 End: 01-30-2024 Patient encounter procedure [facility] Comment on above: 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/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/1 YEAR APPT TO [facility] f/u in 1 year with Naomi Wheeler 1 year [id number] ss Start: 01-29-2024 End: 01-29-2024 Patient encounter procedure 01/29/2024 11:20 AM EDT Office Visit [facility] [address] [place] [address] [facility] [address] [place] [address] 4 week follow up for DM [facility] Comment on above: 4 week follow up for DM Start: 01-26-2024 Hepatitis B screening URINE ALBUMIN:CREATININE RATIO [facility] Start: 01-26-2024 Hepatitis B surface antibody level LDL CHOLESTEROL [facility] Start: 01-23-2024 ANNUAL PCP TEAM CHRONIC DISEASE VISIT ANNUAL PCP TEAM CHRONIC DISEASE VISIT [facility] Start: 01-23-2024 BP CONTROLLED (<130/80) BP CONTROLLED (<130/80) [facility] in Start: 12-24-2023 End: 12-24-2023 Patient encounter procedure [facility] Comment on above: Follow up Start: 12-05-2023 End: 03-05-2024 Hemoglobin A1c in Blood HEMOGLOBIN A1C Lab Routine Type 2 diabetes mellitus with diabetic neuropathy, with long-term current use of insulin (HCC) Expected: 12/05/2023, Expires: 03/05/2024 [facility] Work Phone: Comment on above: Expected: 12/05/2023, Expires: Start: 12-05-2023 End: 12-05-2023 Patient encounter procedure [facility] Comment on above: Follow up in 3 weeks Start: 11-28-2023 Hemoglobin A1c measurement HbA1C [facility] Start: 11-14-2023 End: 11-14-2023 Patient encounter procedure 11/14/2023 1:20 PM EDT Office Visit [facility] [address] [facility] [place] [address] [facility] [address] [place] [address] 15 day follow up . Mickey pulido MA [facility] Comment on above: 15 day follow up . Mickey pulido MA Start: 10-06-2023 [facility] Start: 08-20-2023 Hemoglobin A1c measurement HbA1C [facility] Start: 08-20-2023 Hemoglobin A1c/Hemoglobin.total in Blood HbA1C [facility] Start: 08-19-2023 Covid-19 Vaccine () Covid-19 Vaccine () [facility] Start: 07-15-2023 Behavioral Health Screening Behavioral Health Screening [facility] Start: 07-15-2023 Depression Assessment Depression Assessment [facility] Start: 05-14-2023 Hepatitis C antibody, confirmatory test Dilated Retinal Exam [facility] Comment on above: Postponed from 11/15/2018 (Postponed To Appropriate Date) Start: 05-01-2023 End: 07-31-2023 Hemoglobin A1c in Blood HGB A1C Lab Routine Type 2 diabetes mellitus with diabetic neuropathy, with long-term current use of insulin (HCC) Expected: 05/01/2023, Expires: 07/31/2023 [facility] Work Phone: Comment on above: Expected: 05/01/2023, Expires: Start: 04-24-2023 Hemoglobin A1c/Hemoglobin.total in Blood HBA1C [facility] Start: 03-15-2023 Covid-19 Vaccine () Covid-19 Vaccine () [facility] Start: 03-15-2023 Influenza vaccination [facility] Start: 02-05-2023 End: 04-07-2023 Lipid 1996 panel - Serum or Plasma LIPID PANEL BASIC Lab Routine Type 2 diabetes mellitus with diabetic neuropathy, with long-term current use of insulin (HCC) Essential hypertension, benign Expected: 02/05/2023 (Approximate), Expires: 04/07/2023 [facility] Work Phone: Comment on above: Expected: 02/05/2023 (Approximate), Expi res: 04/07/2023 Start: 01-28-2023 Encounter for problem [facility] Work Phone: Start: 01-23-2023 Depression screening using PHQ-9 (Patient Health Questionnaire 9) score DEPRESSION SCREENING [facility] Start: 01-23-2023 Diabetic foot examination FOOT EXAM [facility] Start: 01-23-2023 Urine screening for protein [facility] Start: 01-22-2023 End: 03-24-2023 ALBUMIN/CREAT RATIO RND UR ALBUMIN/CREAT RATIO RND UR Lab Routine Type 2 diabetes mellitus with diabetic neuropathy, with long-term current use of insulin (HCC) Expected: 01/22/2023, Expires: 03/24/2023 [facility] Work Phone: Comment on above: Expected: 01/22/2023, Expires: 3 Start: 01-22-2023 End: 03-24-2023 CBC W Auto Differential panel - Blood CBC + DIFF Lab Routine Type 2 diabetes mellitus with diabetic neuropathy, with long-term current use of insulin (HCC) Essential hypertension, benign Expected: 01/22/2023, Expires: 03/24/2023 [facility] Work Phone: Comment on above: Expected: 01/22/2023, Expires: 3 Start: 01-22-2023 End: 03-24-2023 Comprehensive metabolic 2000 panel - Serum or Plasma COMP METABOLIC PANEL Lab Routine Type 2 diabetes mellitus with diabetic neuropathy, with long-term current use of insulin (HCC) Essential hypertension, benign Expected: 01/22/2023, Expires: 03/24/2023 [facility] Work Phone: Comment on above: Expected: 01/22/2023, Expires: 3 Start: 01-22-2023 End: 03-24-2023 HIV 1+2 Ab [Presence] in Serum or Plasma by Immunoassay HIV 1 2 COMBO(AG/AB),WITH REFLEX TO DIFFERENTIATION Lab Routine Screening for HIV (human immunodeficiency virus) Expected: 01/22/2023, Expires: 03/24/2023 [facility] Work Phone: Comment on above: Expected: 01/22/2023, Expires: 3 Start: 01-22-2023 End: 03-24-2023 Magnesium [Mass/volume] in Serum or Plasma MAGNESIUM BLD Lab Routine Essential hypertension, benign Expected: 01/22/2023, Expires: 03/24/2023 [facility] Work Phone: Comment on above: Expected: 01/22/2023, Expires: 3 Start: 01-22-2023 End: 03-24-2023 Thyrotropin [Units/volume] in Serum or Plasma TSH BLD Lab Routine Obesity, Class II, BMI 35-39.9 Expected: 01/22/2023, Expires: 03/24/2023 [facility] Work Phone: Comment on above: Expected: 01/22/2023, Expires: 3 Start: 01-22-2023 End: 03-24-2023 Thyroxine (T4) free [Mass/volume] in Serum or Plasma T4 FREE/FREE THYROX Lab Routine Obesity, Class II, BMI 35-39.9 Expected: 01/22/2023, Expires: 03/24/2023 [facility] Work Phone: Comment on above: Expected: 01/22/2023, Expires: 3 Start: 09-19-2022 End: 09-19-2022 Patient encounter procedure [facility] Start: 09-06-2022 Depression screening using PHQ-9 (Patient Health Questionnaire 9) score DEPRESSION SCREENING [facility] Start: 08-31-2022 ANNUAL WELLNESS VISIT ANNUAL WELLNESS VISIT [facility] Start: 08-30-2022 History and physical examination, annual for health maintenance Wellness Visit [facility] Start: 07-26-2022 Hemoglobin A1c measurement A1C [facility] Start: 07-15-2022 DEPRESSION ASSESSMENT DEPRESSION ASSESSMENT [facility] Start: 05-07-2022 End: 05-07-2022 Patient encounter procedure 05/07/2022 Appointment Cardiology [facility] Start: 05-02-2022 COVID-19 Vaccine (5 - Booster for Moderna series) COVID-19 Vaccine (5 - Booster for Moderna series) [facility] Start: 05-02-2022 COVID-19 VACCINE (5 - Moderna series) COVID-19 VACCINE (5 - Moderna series) [facility] Start: 04-25-2022 Hemoglobin A1c measurement HEMOGLOBIN A1C [facility] Start: 04-23-2022 End: 04-23-2022 Patient encounter procedure 04/23/2022 Office Visit Cardiology Milka Rodriguez MD [address] [place] [address] [facility] Start: 04-20-2022 End: 04-20-2022 Patient encounter procedure 04/20/2022 Office Visit Cardiology Abbey Oliveira, MED SPA MANAGER [address] [place] [address] [facility] Start: 04-03-2022 Encounter for problem Fina Lemos. Work Phone: Start: 03-15-2022 Influenza vaccination Sequential Influenza Vaccine (#1) [facility] Start: 03-15-2022 Influenza vaccination given INFLUENZA VACCINE (#1) [facility] Start: 03-08-2022 End: 03-08-2022 Patient encounter procedure 03/08/2022 Office Visit Endocrinology Dave Phan MD [address] [address] [facility] ENDOCRINOLOGY Start: 03-07-2022 End: 03-07-2022 Patient encounter procedure 03/07/2022 Office Visit Family Medicine Ha Avelar APRN [employer]-C [address] [place] [address] [facility] Start: 02-12-2022 Influenza vaccination Flu vaccine (#1) [facility] Start: 01-25-2022 Encounter for problem Vlad [facility]iz MD, [facility] Work Phone: Start: 01-11-2022 Encounter for problem Fina Lemos. Work Phone: Start: 12-12-2021 Encounter for problem Fina Lemos. Work Phone: Start: 11-24-2021 COVID-19 VACCINE (4 - Booster for Moderna series) COVID-19 VACCINE (4 - Booster for Moderna series) [facility] Start: 11-16-2021 End: 11-16-2021 Patient encounter procedure 11/16/2021 Office Visit Dentistry Mikaela Sharp, [facility] Start: 11-13-2021 Hemoglobin A1c measurement [facility] Start: 10-31-2021 End: 10-31-2021 ambulatory 10/31/2021 PaceArt Device Check Cardiology [facility] Start: 10-24-2021 End: 10-24-2021 Telemedicine consultation with patient 10/24/2021 Telemedicine Family Medicine Ha Avelar APRN [facility] [address] [place] [address] [facility] Start: 10-23-2021 End: 10-23-2021 Patient encounter procedure 10/23/2021 Appointment Cardiology Nick Branch MD [address] [facility] [address] [place] [address] [facility] Start: 10-09-2021 Sly Nix D.P.M. Work Phone: Start: 09-27-2021 Colonoscopy COLONOSCOPY [facility] Start: 09-27-2021 COLORECTAL CANCER SCREENING COLORECTAL CANCER SCREENING [facility] Start: 09-27-2021 Screening for malignant neoplasm of colon [facility] Start: 09-08-2021 Albumin DL <= 20 mg/L (U) [Mass/Vol] Urine Microalbumin [facility] Start: 09-08-2021 Diabetic foot examination FOOT EXAM [facility] Start: 09-08-2021 Lipid panel LIPIDS [facility] Start: 09-08-2021 Microalbumin measurement, urine, quantitative Urine Microalbumin [facility] Start: 09-08-2021 Renal function test NOS RENAL PROFILE [facility] Start: 09-08-2021 Urine screening for protein MICROALBUMINURIA [facility] Start: 07-27-2021 Encounter for problem Fina Lemos. Work Phone: Start: 06-13-2021 Encounter for problem Fina Lemos. Work Phone: Start: 06-05-2021 Encounter for problem Fina Lemos. Work Phone: Start: 04-04-2021 End: 04-04-2021 Patient encounter procedure 04/04/2021 Appointment Cardiology Nick Branch MD [address] [facility] [address] [place] [address] [facility] Start: 03-15-2021 Influenza vaccination [facility] Start: 02-12-2021 Ophthalmic examination and evaluation OPHTHALMOLOGY EXAM [facility] Start: 12-25-2020 End: 12-25-2020 Appointment 12/25/2020 Appointment Cardiology [facility] Start: 11-29-2020 Albumin DL <= 20 mg/L (U) [Mass/Vol] Urine Microalbumin [facility] Start: 10-26-2020 COVID-19 Vaccine (2 - Moderna 2-dose series) COVID-19 Vaccine (2 - Moderna 2-dose series) [facility] Start: 09-15-2020 End: 09-15-2020 Appointment 09/15/2020 Appointment Cardiology [facility] Start: 08-18-2020 Adult depression screening assessment DEPRESSION SCREENING [facility] Start: 08-11-2020 End: 08-11-2020 Office Visit 08/11/2020 Office Visit Cardiology Abbey Oliveira, MED SPA MANAGER [address] [place] [address] [phone] [facility] Start: 08-02-2020 End: 08-02-2020 Office Visit 08/02/2020 Office Visit Obstetrics and Gynecology Keshia Sterling APRN CNM [address] [place] [address] [phone] [facility] Start: 07-28-2020 Adult depression screening assessment DEPRESSION SCREENING [facility] Start: 07-28-2020 ANNUAL WELLNESS VISIT ANNUAL WELLNESS VISIT [facility] Start: 06-07-2020 End: 06-07-2020 Appointment 06/07/2020 Appointment Cardiology [facility] Start: 06-01-2020 Diabetic foot examination FOOT EXAM [facility] Start: 05-28-2020 Screening mammography MAMMOGRAM [facility] Start: 05-08-2020 Lipid panel LIPIDS [facility] Start: 05-08-2020 Renal function test NOS RENAL PROFILE [facility] Start: 04-01-2020 End: 04-01-2020 Appointment 04/01/2020 Appointment Cardiology [facility] Start: 03-29-2020 End: 03-29-2020 Office Visit 03/29/2020 Office Visit Cardiology [facility] Start: 03-15-2020 Influenza vaccination given Sequential Influenza Vaccine (#1) [facility] Start: 02-24-2020 Hepatitis B screening URINE ALBUMIN:CREATININE RATIO [facility] Start: 12-29-2019 End: 12-29-2019 Office Visit 12/29/2019 Office Visit Cardiology [facility] Start: 12-22-2019 End: 12-22-2019 PaceArt Device Check 12/22/2019 PaceArt Device Check Cardiology [facility] Start: 12-14-2019 Ophthalmic examination and evaluation OPHTHALMOLOGY EXAM [facility] Start: 11-17-2019 End: 11-17-2019 Office Visit 11/17/2019 Office Visit Cardiology [facility] Start: 10-07-2019 End: 10-07-2019 PaceArt Device Check 10/07/2019 PaceArt Device Check Cardiology [facility] Start: 09-01-2019 HbA1c (Bld) [Mass fraction] HEMOGLOBIN A1C [facility] Start: 09-01-2019 End: 09-01-2019 Office Visit 09/01/2019 Office Visit Family Medicine Ha Avelar APRN [employer] [address] [place] [address] [facility] Start: 07-21-2019 Hepatitis B surface antibody level LDL CHOLESTEROL [facility] Start: 07-01-2019 Hepatitis B vaccination HEPATITIS B VACCINE (ADULT) (#2) [facility] Start: 12-03-2018 Mammography [facility] Start: 12-03-2018 Screening for malignant neoplasm of breast Mammogram Screening [facility] Start: 11-15-2018 Hepatitis C antibody, confirmatory test DILATED RETINAL EXAM [facility] Start: 10-23-2018 3 comp foot exam completed DIABETIC FOOT EXAM [facility] Start: 09-09-2017 End: 09-09-2017 Appointment Appointment [facility] Work Phone: Start: 06-11-2017 End: 06-11-2017 Magnesium *Magnesium [facility] Work Phone: Start: 11-27-2016 End: 11-27-2016 *CMP Complete Metabolic Panel *CMP Complete Metabolic Panel [facility] Work Phone: Start: 11-27-2016 End: 11-27-2016 Hemoglobin A1c/Hemoglobin.total mass fraction (Bld) *HgA1C [facility] Work Phone: Start: 11-27-2016 End: 11-27-2016 Lipid panel [AGGREGATE] *Lipid Profile [facility] Work Phone: Start: 09-17-2016 Colonoscopy [facility] Start: 09-17-2016 Screening for malignant neoplasm of colon COLORECTAL CANCER SCREENING [facility] Start: 09-04-2016 End: 09-04-2016 *CMP Complete Metabolic Panel *CMP Complete Metabolic Panel [facility] Work Phone: Start: 09-04-2016 End: 09-04-2016 *Microalbumin, Creatine Ratio, rand urine *Microalbumin, Creatine Ratio, rand urine [facility] Work Phone: Start: 09-04-2016 End: 09-07-2016 1,25-Dihydroxyvitamin D [Mass/volume] in Serum or Plasma *[id number] Vitamin D, 1, 25- DiHydroxy [facility] Work Phone: Start: 09-04-2016 End: 09-08-2016 Monotype Keyboard Operator Monotype Keyboard Operator [facility], [address] [place], [address] [facility] Work Phone: Start: 09-04-2016 End: 09-04-2016 Hemoglobin A1c/Hemoglobin.total mass fraction (Bld) *HgA1C [facility] Work Phone: Start: 09-04-2016 End: 09-04-2016 Lipid panel [AGGREGATE] *Lipid Profile [facility] Work Phone: Start: 09-04-2016 End: 09-04-2016 Thyroid stimulating hormone (TSH) *TSH [facility] Work Phone: Start: 2016 Administration of herpes zoster vaccine Zoster Vaccines (1 of 2) [facility] Start: 2016 Screening for malignant neoplasm of colon [facility] Start: 2016 SHINGLES VACCINE (1 of 2) SHINGLES VACCINE (1 of 2) [facility] Start: 2016 SHINGRIX VACCINE (1 of 2) SHINGRIX VACCINE (1 of 2) [facility] Start: 05-10-2015 End: 05-10-2015 Follow Up Appt 3 months Follow Up Appt 3 months [facility] Work Phone: Start: 05-10-2015 End: 05-10-2015 [facility] Work Phone: Start: 01-31-2015 End: 01-31-2015 Follow Up Appt 3 months Follow Up Appt 3 months [facility] Work Phone: Start: 01-31-2015 End: 01-31-2015 [facility] Work Phone: Start: 11-09-2014 End: 08-03-2014 *Hepatic Function Panel *Hepatic Function Panel [facility] Work Phone: Start: 11-09-2014 End: 08-03-2014 Lipid panel [AGGREGATE] *Lipid Profile CC PCP [facility] Work Phone: Start: 10-28-2014 End: 10-28-2014 Follow Up Appt 3 months Follow Up Appt 3 months [facility] Work Phone: Start: 10-28-2014 End: 10-28-2014 [facility] Work Phone: Start: 07-28-2014 End: 07-28-2014 Follow Up Appt 3 months Follow Up Appt 3 months [facility] Work Phone: Start: 07-28-2014 End: 07-28-2014 [facility] Work Phone: Start: 04-26-2014 End: 04-26-2014 Follow Up Appt 3 months Follow Up Appt 3 months [facility] Work Phone: Start: 04-26-2014 End: 04-26-2014 [facility] Work Phone: Start: 03-31-2014 Screening for malignant neoplasm of colon Fecal occult blood test (FOBT,FIT) [facility] Start: 03-30-2014 FECAL OCCULT BLOOD FECAL OCCULT BLOOD [facility] Start: 03-30-2014 Screening for malignant neoplasm of colon Fecal Occult Blood [facility] Start: 03-16-2014 End: 03-16-2014 DRAG SEINER DRAG SEINER [facility] Work Phone: Start: 03-16-2014 End: 03-16-2014 Ecg routine ecg w/least 12 lds w/i&r EKG (In office) [facility] Work Phone: Start: 03-16-2014 End: 03-16-2014 Follow Up Appt 4 months Follow Up Appt 4 months [facility] Work Phone: Start: 01-22-2014 End: 02-26-2014 Follow Up Appt 3 months Follow Up Appt 3 months [facility] Work Phone: Start: 01-22-2014 End: 02-26-2014 [facility] Work Phone: Start: 11-26-2013 End: 11-26-2013 Follow Up Appt 3 months Follow Up Appt 3 months [facility] Work Phone: Start: 11-26-2013 End: 11-26-2013 MMM MMM [facility] Work Phone: Start: 10-21-2013 End: 02-26-2014 Follow Up Appt 3 months Follow Up Appt 3 months [facility] Work Phone: Start: 10-21-2013 End: 02-26-2014 [facility] Work Phone: Start: 09-10-2013 End: 02-26-2014 Follow Up Appt 1 month Follow Up Appt 1 month [facility] Work Phone: Start: 09-10-2013 End: 02-26-2014 Pacer Clinic Pacer Clinic [facility] Work Phone: Start: 08-21-2013 End: 08-21-2013 DRAG SEINER DRAG SEINER [facility] Work Phone: Start: 08-21-2013 End: 08-21-2013 Follow Up Appt 3 months Follow Up Appt 3 months [facility] Work Phone: Start: 07-15-2013 Pneumococcal Vaccine: Ped or At-Risk (2 - PCV) Pneumococcal Vaccine: Ped or At-Risk (2 - PCV) [facility] Start: 07-15-2013 Pneumococcal Vaccine: Ped or At-Risk (2 of 2 - PCV) Pneumococcal Vaccine: Ped or At-Risk (2 of 2 - PCV) [facility] Start: 06-18-2013 End: 06-18-2013 DRAG SEINER DRAG SEINER [facility] Work Phone: Start: 06-18-2013 End: 02-26-2014 Echocardiography Echocardiogram (limited) [facility] Work Phone: Start: 06-18-2013 End: 06-18-2013 Follow Up Appt 2 months Follow Up Appt 2 months [facility] Work Phone: Start: 05-06-2013 End: 05-06-2013 *BMP *BMP [facility] Work Phone: Start: 05-06-2013 End: 02-26-2014 *Hepatic Function Panel *Hepatic Function Panel [facility] Work Phone: Start: 05-06-2013 End: 06-09-2013 Follow Up Appt 6 weeks Follow Up Appt 6 weeks [facility] Work Phone: Start: 05-06-2013 End: 05-06-2013 MMM MMM [facility] Work Phone: Start: 03-21-2013 PNEUMOCOCCAL (2 - PCV) PNEUMOCOCCAL (2 - PCV) [facility] Start: 2011 COLOGUARD (FIT-DNA) COLOGUARD (FIT-DNA) [facility] Start: [address] COLONOGRAPHY [facility] Start: 2011 Screening for malignant neoplasm of colon [facility] Start: 2011 SIGMOIDOSCOPY SIGMOIDOSCOPY [facility] Start: 2006 Screening for malignant neoplasm of breast Mammogram [facility] Start: 2006 Screening mammography Mammogram [facility] Start: 1985 DTaP/Tdap/Td vaccine (1 - Tdap) DTaP/Tdap/Td vaccine (1 - Tdap) [facility] Start: 1985 Hepatitis B Vaccine (1 of 3 - 19+ 3-dose series) Hepatitis B Vaccine (1 of 3 - 19+ 3-dose series) [facility] Start: 1985 Urine microalbumin profile DTAP,TDAP,TD (1 - Tdap) [facility] Start: 1984 BP CONTROLLED (<130/80) BP CONTROLLED (<130/80) [facility] Start: 1984 Hepatitis C antibody, confirmatory test Hepatitis C Screening [facility] Start: 1984 Hepatitis C screening Hepatitis C Screening [facility] Start: 1984 HIV SCREENING HIV SCREENING [facility] Start: 1984 WELLNESS ANNUAL VISIT WELLNESS ANNUAL VISIT [facility] Start: 1982 COVID-19 Vaccine (1 of 2) COVID-19 Vaccine (1 of 2) [facility] Start: 1981 HIV screening HIV Screening [facility] Start: 1976 Albumin DL <= 20 mg/L (U) [Mass/Vol] URINE MICROALBUMIN [facility] Start: 1976 Diabetic foot examination [facility] Start: 1976 Glaucoma screening [facility] Start: 1976 Ophthalmic examination and evaluation Ophthalmology Exam [facility] Start: 1972 Pneumococcal Vaccine: Ped or At-Risk (1 of 2 - PPSV23) Pneumococcal Vaccine: Ped or At-Risk (1 of 2 - PPSV23) [facility] Start: 1969 History and physical examination, annual for health maintenance Wellness Visit [facility] Start: 01-11-1967 COVID-19 Vaccine (#1) COVID-19 Vaccine (#1) [facility] Start: 1966 HbA1c (Bld) [Mass fraction] A1C [facility] Start: 1966 Hemoglobin A1c measurement A1C [facility] Start: 1966 HEPATITIS B (1 of 3 - 3-dose series) HEPATITIS B (1 of 3 - 3-dose series) [facility] Start: 1966 Hepatitis B Vaccine (1 of 3 - 3-dose series) Hepatitis B Vaccine (1 of 3 - 3-dose series) [facility] Start: 1966 Nephropathy screening MICROALBUMINURIA [facility] Start: 1966 Screening for malignant neoplasm of cervix PAP SMEAR [facility] Start: 1966 Screening for malignant neoplasm of colon [facility] Start: 1966 Screening mammography Mammogram [facility] End: 04-09-2023 Alanine aminotransferase [Enzymatic activity/volume] in Serum or Plasma ALT Lab Routine Nonischemic cardiomyopathy (HCC) Benign essential HTN HFrEF (heart failure with reduced ejection fraction) (HCC) 1 Occurrences starting 04/09/2022 until 04/09/2023 [facility] Comment on above: 1 Occurrences starting 04/09/2022 until 04/09/2023 End: 04-09-2023 Aspartate aminotransferase [Enzymatic activity/volume] in Serum or Plasma AST Lab Routine Nonischemic cardiomyopathy (HCC) Benign essential HTN HFrEF (heart failure with reduced ejection fraction) (HCC) 1 Occurrences starting 04/09/2022 until 04/09/2023 [facility] Comment on above: 1 Occurrences starting 04/09/2022 until 04/09/2023 End: 12-14-2020 Basic metabolic 2000 panel Basic metabolic panel Lab Routine MCKNIGHT (dyspnea on exertion) 1 Occurrences starting 12/15/2019 until 12/14/2020 [facility] Comment on above: 1 Occurrences starting 12/15/2019 until 12/14/2020 End: 07-29-2021 Basic metabolic 2000 panel Basic metabolic panel Lab Routine Benign essential HTN 1 Occurrences starting 07/29/2020 until 07/29/2021 [facility] Comment on above: 1 Occurrences starting 07/29/2020 until 07/29/2021 End: 04-09-2023 Basic metabolic 2000 panel - Serum or Plasma Basic Metabolic Panel Lab Routine Nonischemic cardiomyopathy (HCC) Benign essential HTN HFrEF (heart failure with reduced ejection fraction) (HCC) 1 Occurrences starting 04/09/2022 until 04/09/2023 [facility] Work Phone: Comment on above: 1 Occurrences starting 04/09/2022 until 04/09/2023 Basic metabolic 2008 panel with ionized calcium - Serum or Plasma [facility] End: 08-17-2020 CBC with Differential CBC with Differential Lab Routine Pre-operative clearance 1 Occurrences starting 08/18/2019 until 08/17/2020 [facility] Comment on above: 1 Occurrences starting 08/18/2019 until 08/17/2020 End: 08-28-2020 Chlamydia trachomatis+Neisseria gonorrhoeae rRNA [Presence] in Cervix by Probe GC & Chlamydia Amplified Probe Microbiology Routine Screen for STD (sexually transmitted disease) 1 Occurrences starting 07/28/2019 until 08/28/2020 [facility] Comment on above: 1 Occurrences starting 07/28/2019 until 08/28/2020 End: 08-17-2020 Comprehensive metabolic panel aka Metabo Comprehensive metabolic panel aka Metabo Lab Routine Pre-operative clearance 1 Occurrences starting 08/18/2019 until 08/17/2020 [facility] Comment on above: 1 Occurrences starting 08/18/2019 until 08/17/2020 End: 10-20-2020 Contrast echocardiography Echocardiogram complete w contrast Echocardiography Routine Nonischemic cardiomyopathy (HCC) MCKNIGHT (dyspnea on exertion) 1 Occurrences starting 08/21/2019 until 10/20/2020 [facility] Comment on above: 1 Occurrences starting 08/21/2019 until 10/20/2020 End: 02-27-2025 DBT Breast - bilateral screening S[facility]EM SCREENING [facility] Radiology Routine Encounter for screening mammogram for breast cancer 1 Occurrences starting 01/29/2024 until 02/27/2025 [facility] Work Phone: Comment on above: 1 Occurrences starting 01/29/2024 until 02/27/2025 End: 01-30-2024 Echocardiography ECHO Cardiology Routine NICM (nonischemic cardiomyopathy) (HCC) 1 Occurrences starting 01/29/2023 until 01/30/2024 [facility] Work Phone: Comment on above: 1 Occurrences starting 01/29/2023 until 01/30/2024 Im adm prq id subq/i m njxs 1 vaccine IMADM PRQ ID SUBQ/IM NJXS 1 VACC Immunization/Injection Routine Encounter for immunization Ordered: 03/15/2023 [facility] Work Phone: Comment on above: Ordered: 03/15/2023 Lactic acid measurement [facility] End: 12-14-2020 Magnesium [Mass/Vol] Magnesium Lab Routine MCKNIGHT (dyspnea on exertion) 1 Occurrences starting 12/15/2019 until 12/14/2020 [facility] Comment on above: 1 Occurrences starting 12/15/2019 until 12/14/2020 End: 07-29-2021 Magnesium [Mass/Vol] Magnesium Lab Routine Benign essential HTN 1 Occurrences starting 07/29/2020 until 07/29/2021 [facility] Comment on above: 1 Occurrences starting 07/29/2020 until 07/29/2021 End: 04-09-2023 Magnesium [Mass/volume] in Serum or Plasma Magnesium Level Lab Routine Nonischemic cardiomyopathy (HCC) Benign essential HTN HFrEF (heart failure with reduced ejection fraction) (HCC) 1 Occurrences starting 04/09/2022 until 04/09/2023 [facility] Comment on above: 1 Occurrences starting 04/09/2022 until 04/09/2023 End: 02-21-2024 SALEEM SCREENING [facility] SCREENING Radiology Routine Encounter for screening mammogram for breast cancer 1 Occurrences starting 01/22/2023 until 02/21/2024 [facility] Work Phone: Comment on above: 1 Occurrences starting 01/22/2023 until 02/21/2024 MG Breast - bilatera l Screening [facility] End: 04-09-2023 Natriuretic peptide.B prohormone N-Terminal [Mass/volume] in Serum or Plasma NT Pro BNP Lab Routine Nonischemic cardiomyopathy (HCC) Benign essential HTN HFrEF (heart failure with reduced ejection fraction) (HCC) 1 Occurrences starting 04/09/2022 until 04/09/2023 [facility] Comment on above: 1 Occurrences starting 04/09/2022 until 04/09/2023 End: 12-28-2020 Nocturnal pulse oximetry Nocturnal pulse oximetry Sleep Center Routine PAXTON (obstructive sleep apnea) 1 Occurrences starting 12/29/2019 until 12/28/2020 [facility] Comment on above: 1 Occurrences starting 12/29/2019 until 12/28/2020 Patient Education Juan leger [facility] Work Phone: Patient referral Katrin steiner [facility] Work Phone: POCT rack urine POCT rack urine Point of Care Testing Routine Pre-operative clearance Ordered: 08/18/2019 [facility] Comment on above: Ordered: 08/18/2019 Recommendations Sly Nix D.P.M. Work Phone: End: 10-29-2024 Screening colonoscopy COLONOSCOPY SCREENING Endoscopy Routine Screening for colon cancer 1 Occurrences starting 10/30/2023 until 10/29/2024 [facility] Work Phone: Comment on above: 1 Occurrences starting 10/30/2023 until 10/29/2024 Standard ECG EKG Order ECG Ro utine Pre-operative clearance Ordered: 08/18/2019 [facility] Comment on above: Ordered: 08/18/2019 End: 10-10-2021 Thyroid Peroxidase Antibody (TPO Ab) [facility] Work Phone: Comment on above: 1 Occurrences starting 10/10/2021 until 10/10/2021 End: 10-10-2021 THYROID STIMULATING IMMUNOGLOBULIN (TSI) [facility] Comment on above: 1 Occurrences starting 10/10/2021 until 10/10/2021 End: 08-28-2020 Trichomonas Amplified Probe Trichomonas Amplified Probe Microbiology Routine Screen for STD (sexually transmitted disease) 1 Occurrences starting 07/28/2019 until 08/28/2020 [facility] Comment on above: 1 Occurrences starting 07/28/2019 until 08/28/2020 End: 10-10-2021 TSH RECEPTOR ANTIBODY [facility] Comment on above: 1 Occurrences starting 10/10/2021 until 10/10/2021 Urine culture [facility] End: 09-15-2020 XR Chest PA and lateral upright XR Chest PA and lat Imaging Routine Pre-operative clearance 1 Occurrences starting 08/18/2019 until 09/15/2020 [facility] Comment on above: 1 Occurrences starting 08/18/2019 until 09/15/2020 [facility] Immunizations Immunization Date Immunization Notes Care Provider Yenifer bernabe 08-05-2024 influenza, injectabl e, madin erlinda canine kidney, preservative free No Primary Care Physician [facility] 08-05-2024 Influenza, injectabl e, Madin Erlinda Canine Kidney, preservative free, quadrivalent No Primary Care Physician [facility] 06-24-2023 COVID-19 original vaccine, booster dose, monovalent (MODERNA) Williams Rubin MD Work Phone: [facility] Work Phone: 05-30-2023 Pfizer Covid-19 (Comirnaty) No Primary Care Physician [facility] 05-20-2023 influenza, injectabl e, quadrivalent, contains preservative Williams Rubin MD Work Phone: [facility] 05-20-2023 influenza, injectabl e, quadrivalent, preservative free No Primary Care Physician [facility] 05-20-2023 influenza virus vaccine, unspecified formulation Pharm Cfm [facility] 03-15-2023 pneumococcal Conjuga te, unspecified formulation Manny Evans MD Work Phone: [facility] Work Phone: 03-15-2023 pneumococcal (PCV20) vaccine, 20 valent (PREVNAR 20) Manny Evans MD Work Phone: [facility] 04-30-2022 tetanus toxoid, redu suzette diphtheria toxoid, and acellular pertussis vaccine, adsorbed STOCK CHECKERER Ha Avelar Work Phone: [facility] 03-07-2022 Covid (Moderna) No Primary C are Physician [facility] 01-23-2022 HEMOGLOBIN A1C Dave Phan MD Work Phone: [facility] 08-16-2021 HEMOGLOBIN A1C Dave Phan MD Work Phone: [facility] 07-27-2021 Moderna Covid-19 Vaccine Dave Phan MD Work Phone: [facility] 05-16-2021 influenza, injectabl e, quadrivalent, preservative free No Primary Care Physician [facility] 05-16-2021 influenza, seasonal, injectable Dave Phan MD Work Phone: [facility] 05-16-2021 influenza virus vaccine, unspecified formulation Dave Phan MD Work Phone: [facility] 10-26-2020 Moderna Covid-19 Vaccine Dave Phan MD Work Phone: [facility] 09-28-2020 Moderna Covid-19 Vaccine Dave Phan MD Work Phone: [facility] 09-08-2020 influenza, injectabl e, quadrivalent, preservative free No Primary Care Physician [facility] 09-08-2020 influenza, seasonal, injectable Dave Phan MD Work Phone: [facility] 05-03-2020 zoster vaccine recombinant Dave Phan MD Work Phone: [facility] 03-30-2020 zoster vaccine recombinant Dave Phan MD Work Phone: [facility] 12-29-2019 zoster vaccine recombinant Dave Phan MD Work Phone: [facility] 06-01-2019 HEMOGLOBIN A1C [facility] 04-22-2019 influenza, injectabl e, quadrivalent, preservative free No Primary Care Physician [facility] 04-22-2019 influenza, seasonal, injectable [facility] 04-22-2019 tetanus toxoid, redu suzette diphtheria toxoid, and acellular pertussis vaccine, adsorbed [facility] 05-26-2018 influenza, injectabl e, quadrivalent, contains preservative Dave Phan MD Work Phone: [facility] 05-26-2018 influenza, injectabl e, quadrivalent, preservative free No Primary Care Physician [facility] 04-14-2017 Influenza virus vaccine [facility] 04-14-2017 influenza, seasonal, injectable Dave Phan MD Work Phone: [facility] 04-14-2017 influenza, seasonal, injectable, preservative free Dave Phan MD Work Phone: [facility] 03-28-2017 influenza, injectabl e, quadrivalent, contains preservative Dave Phan MD Work Phone: [facility] 03-28-2017 influenza, injectabl e, quadrivalent, preservative free No Primary Care Physician [facility] 05-11-2016 influenza, injectabl e, quadrivalent, contains preservative Dave Phan MD Work Phone: [facility] 05-11-2016 influenza, injectabl e, quadrivalent, preservative free No Primary Care Physician [facility] 06-20-2015 influenza, injectabl e, quadrivalent, contains preservative Ronny Wheeler MD Work Phone: [facility] 06-20-2015 influenza, injectabl e, quadrivalent, preservative free No Primary Care Physician [facility] 06-20-2015 influenza, seasonal, injectable Dave Phan MD Work Phone: [facility] 06-21-2014 influenza, injectabl e, quadrivalent, preservative free No Primary Care Physician [facility] 06-21-2014 influenza, seasonal, injectable Dave Phan MD Work Phone: [facility] 10-26-2013 TD(adult) unspecifie d formulation Dave Phan MD Work Phone: [facility] 04-30-2013 influenza virus vaccine, unspecified formulation Ronny Wheeler MD Work Phone: [facility] Work Phone: 07-15-2012 pneumococcal polysaccharide vaccine, 23 valent Dave Phan MD Work Phone: [facility] 04-14-2012 pneumococcal polysaccharide vaccine, 23 valent Dave Phan MD Work Phone: [facility] Work Phone: 04-14-2012 pneumococcal vaccine , unspecified formulation [facility] 03-21-2012 pneumococcal polysaccharide vaccine, 23 valent Dave Phan MD Work Phone: [facility] 04-14-2011 influenza virus vaccine, unspecified formulation Ronny Wheeler MD Work Phone: [facility] 05-23-2009 novel [id number], live virus for nasal administration Dave Phan MD Work Phone: [facility] Payers Date Payer Category Payer Self-pay [id number] 2023 Unknown NATALI HURST HI X [id number] 2023-Present [phone] [address] [address] [place] [address] HMO [id number] 2023 Unknown [id number] 2022 Medicaid [id number] 2021 Private Health Insurance [facility] [id number] 2021-Present [phone] [address] [place] [address] Medicaid [id number] 2019 Medicaid [id number] [id number] .7.3.160438.315 2019 Medicaid [id number] 1.13.385.2 .[id number] 2019 Private Health Insurance xxxxxxxxx [id number] .7.3.872578.315 2014 Private Health Insurance [id number] 1966 Unknown [id number] 2.16.840.1.727151.3.579.2 .651 1966 Unknown [id number] 2.16.840.1.971794.3.579.2 .204 1966 Unknown [id number] 2.16.840.1.104689.3.579.2 .900 1966 Unknown [id number] 2.16.840.1.555118.3.579.2 .900 1966 Unknown [id number] 2.16.840.1.186522.3.579.2 .900 1966 Unknown [id number] 2.16.840.1.379558.3.579.2 .900 1966 Unknown [id number] 2.16.840.1.906007.3.579.2 .297 1966 Unknown [id number] 2.16.840.1.459847.3.579.2 .297 1966 Unknown [id number] 2.16.840.1.574810.3.579.2 .297 1966 Unknown [id number] 2.16.840.1.315794.3.579.2 .297 1966 Unknown [id number] 2.16.840.1.696436.3.579.2 .297 1966 Unknown [id number] 2.16.840.1.441460.3.579.2 .297 1966 Unknown [id number] 2.16.840.1.791609.3.579.2 .297 1966 Unknown [id number] 2.16.840.1.862780.3.579.2 .297 1966 Unknown [id number] 2.16.840.1.718001.3.579.2 .297 1966 Unknown [id number] 2.16.840.1.347185.3.579.2 .297 1966 Unknown [id number] 2.840.1.826820.3.579.2 .903 1966 Unknown [id number] 2.840.1.713007.3.579.2 .903 1966 Unknown [id number] 2.840.1.396603.3.579.2 .903 1966 Unknown [id number] 2.840.1.271004.3.579.2 .903 1966 Unknown [id number] .840.1.417685.3.579.2 .903 Medicaid MEDICAID MEDICAI D [id number] Effective for all dates [address] [place] [address] Medicaid [id number] [id number] .7.3.950692.315 Unknown [id number] .840.1.646527.3.579.2 .443 Unknown [id number] .840.1.690409.3.579.2 .443 Unknown [id number] .840.1.705637.3.579.2 .443 Unknown [id number] 840.1.105274.3.579.2 .443 Unknown [id number] 840.1.027381.3.579.2 .443 Unknown [id number] .840.1.495714.3.579.2 .443 Unknown [id number] .840.1.832987.3.579.2 .443 Unknown [id number] 840.1.838744.3.579.2 .443 Unknown [id number] Unknown [id number] 840.1.164384.3.579.2 .462 Unknown [id number] 2.16.840.1.183107.3.579.2 .462 Unknown [id number] 2.16.840.1.315431.3.579.2 .462 Unknown [id number] 2.16.840.1.139398.3.579.2 .462 Unknown [id number] 2.16.840.1.769035.3.579.2 .462 Unknown [id number] 2.16.840.1.553117.3.579.2 .462 Unknown [id number] 2.840.1.799365.3.579.2 .462 Unknown [id number] 2.840.1.918739.3.579.2 .462 Unknown [id number] 2.840.1.182619.3.579.2 .462 Unknown [id number] 2.840.1.970259.3.579.2 .462 Unknown [id number] 2.840.1.470024.3.579.2 .462 Unknown [id number] 2.840.1.561813.3.579.2 .462 Unknown [id number] 2.840.1.481355.3.579.2 .462 Unknown [id number] 2.840.1.688431.3.579.2 .462 Unknown [id number] 2.840.1.007140.3.579.2 .462 Unknown [id number] 2.840.1.591910.3.579.2 .462 Unknown [id number] 2.840.1.999348.3.579.2 .462 Unknown [id number] 2.840.1.873218.3.579.2 .462 Unknown [id number] 2.16840.1.527107.3.579.2 .462 Unknown [id number] 2.840.1.424865.3.579.2 .462 Unknown [id number] 2.16.840.1.753862.3.579.2 .462 Unknown [id number] 2.16.840.1.329407.3.579.2 .462 Unknown [id number] 2.16.840.1.859408.3.579.2 .462 Unknown [id number] 2.16.840.1.159581.3.579.2 .462 Unknown [id number] 2.16.840.1.535795.3.579.2 .462 Unknown [id number] 2.16.840.1.972368.3.579.2 .462 Unknown [id number] 2.16.840.1.332002.3.579.2 .462 Unknown [id number] 2.16.840.1.298258.3.579.2 .462 Unknown [id number] 2.16.840.1.886502.3.579.2 .462 Unknown [id number] 2.16.840.1.660883.3.579.2 .462 Unknown [id number] 2.16.840.1.584334.3.579.2 .462 Unknown [id number] 2.16.840.1.383584.3.579.2 .462 Unknown [id number] 2.16.840.1.346249.3.579.2 .462 Unknown [id number] 2.16.840.1.455669.3.579.2 .462 Unknown [id number] 2.16840.1.822039.3.579.2 .462 Unknown [id number] 2.16840.1.971328.3.579.2 .462 Social History Date Type Detail Facility Start: 07-28-2019 End: 11-28-2024 Tobacco smoking status NHIS Never smoker [facility] Start: 07-28-2019 End: 01-23-2022 Alcohol intake Current drinker of alcohol (finding) [facility] Start: 04-22-2019 End: 05-16-2021 History SDOH Alcohol Frequency 1 [facility] Start: 07-28-2019 Alcohol Comment rare [facility] Start: 1965 Sex Assigned At Not on file [facility] Start: 08-21-2019 End: 05-01-2022 Alcohol intake Ex-drinker (finding) [facility] Start: 10-03-2021 End: 04-09-2022 Exposure to SARS-CoV-2 (event) Not sure [facility] Start: 12-01-2010 End: 12-29-2019 Tobacco use and exposure Never used [facility] Start: 1965 End: 01-22-2023 Sex Assigned At Gisselle LemosP. M. Work Phone: Alcohol intake Denies alcohol use Gisselle LemosP.M. Work Phone: Details of drug misu se behavior Denies Drug Use Naomi Lemos.P.M. Work Phone: Start: 02-06-2021 History SDOH Social Connections Phone 5 [facility] Start: 05-16-2021 History SDOH Social Connections Membership 2 [facility] Start: 02-06-2021 History SDOH Stress 3 [facility] Start: 04-30-2022 End: 10-06-2023 Tobacco smoking status ARIS Tobacco smoking consumption unknown [facility] Start: 08-10-2021 Never Smoker [facility] Work Phone: Start: 08-10-2021 No [facility] Work Phone: Start: 09-01-2019 Beer;Wine;Liquor [facility] Work Phone: Start: 1965 Sex Assigned At Female [facility] Start: 05-01-2022 End: 01-22-2023 History of Social function [facility] Start: 08-21-2019 Gender identity Identifies as female gender (finding) [facility] Start: 08-21-2019 Sexual orientation Heterosexual (finding) [facility] Start: 01-22-2023 End: 02-26-2024 Alcohol intake Current non-drinker of alcohol (finding) [facility] Adult Depression Screening Assessment 0 [facility] Start: 03-21-2012 Alcohol Comment seldom [facility] (I/We) worried wheth er (my/our) food would run out before (I/we) got money to buy more. Never true [facility] Has the [employer], or [facility] threatened to shut off services in your home in past 12Mo No [facility] Are you now , , , , never or living with a partner? [facility] How often to you hav e a drink containing alcohol? Never [facility] How hard is it for y ou to pay for the very basics like food, housing, medical care, and heating Somewhat hard [facility] Do you feel stress - tense, restless, nervous, or anxious, or unable to sleep at night because your mind is troubled all the time - these days [OSQ] To some extent [facility] (I/We) worried wheth er (my/our) food would run out before (I/we) got money to buy more. Sometimes true [facility] Start: 11-07-2017 Rare [facility] Start: 11-07-2017 None [facility] Start: 11-07-2017 - [facility] Start: 11-08-2017 Non-smoker [facility] Medical Equipment Procedure Code Equipment Code Equipment Origin al Text Equipment Identifier Dates Implant ([id number]) [id number] Start: 07-04-2015 End: 08-30-2023 Comment on above: Use one needle per d ose. 1 per day. Test blood sugar(s) 3 times daily. USE TO TEST BLOOD CALZADA GAR THREE TIMES A DAY Use 5 needles per do se. 5 per day for her insulin. by Does not appl y route. [id number] 1 each by Does n ot apply route 4 times daily. [id number] Start: 05-04-2019 1 each by Does n ot apply route 4 times daily. [id number] Start: 08-03-2019 Biomet Sport G15 0 Dynagen Chaser Helper-D [id number] Start: 03-11-2018 Biomet Sport 029 2 [place] 4-Site Sg [id number] Start: 09-02-2013 Gdt 4135 Dextmarvin [id number] Start: 09-02-2013 Gdt 4542 Easytra k 2 Is-1, 80 Cm [id number] Start: 09-02-2013 TEST BLOOD SUGAR 1 TO 3 TIMES A DAY [id number] Start: 05-18-2021 USE TO GIVE INSULIN 4 TIMES A DAY [id number] Start: 05-18-2021 1 each by Does n ot apply route 4 times daily. [id number] Start: 09-14-2021 Biomet Spo 0292 [place] 4-Site [id number] Start: 09-02-2013 USE TO GIVE INSULIN 4 TIMES A DAY [id number] Start: 10-26-2021 1 each by Does n ot apply route 4 times daily. [id number] Start: 12-21-2021 Blood Sugar Diagnostic (Onetouch Ultra Blue Test Strip) strip Start: 03-24-2018 Insulin Syringe-Needle U-100 (Bd Insulin Syringe Ultra-Fine) 0.5 mL 31 gauge x 5/16 syringe Start: 08-19-2018 Lancets (Onetouc h Delica Lancets) 30 gauge misc Start: 03-24-2018 Pen Needle, Diabetic (Carefine Pen Needle) 30 gauge x 5/16 needle Start: 08-18-2018 Blood Sugar Diagnostic (Freestyle Lite Strips) strip Start: 08-12-2017 End: 10-07-2017 Insulin Syringe-Needle U-100 (Bd Insulin Syringe Ultra-Fine) 0.5 mL 31 gauge x 5/16 syringe Start: 03-11-2018 End: 03-11-2018 Insulin Syringe-Needle U-100 (Bd Insulin Syringe Ultra-Fine) 0.5 mL 31 gauge x 5/16 syringe Start: 03-11-2018 End: 07-22-2018 Insulin Syringe-Needle U-100 (Bd Insulin Syringe Ultra-Fine) 0.5 mL 31 gauge x 5/16 syringe Start: 07-22-2018 End: 07-22-2018 Insulin Syringe-Needle U-100 (Bd Insulin Syringe Ultra-Fine) 0.5 mL 31 gauge x 5/16 syringe Start: 07-22-2018 End: 08-18-2018 Insulin Syringe-Needle U-100 (Bd Insulin Syringe Ultra-Fine) 0.5 mL 31 gauge x 5/16 syringe Start: 08-18-2018 End: 08-18-2018 Insulin Syringe-Needle U-100 (Bd Insulin Syringe Ultra-Fine) 0.5 mL 31 gauge x 5/16 syringe Start: 08-18-2018 End: 08-19-2018 Pen Needle, Diabetic (Carefine Pen Needle) 30 gauge x 5/16 needle Start: 08-18-2018 End: 08-18-2018 Pen Needle, Diabetic (Comfort Ez Pen Felt) 32 gauge x 5/32 needle Start: 03-24-2018 End: 08-18-2018 USE TO TEST BLOO D SUGAR THREE TIMES A DAY [id number] Start: 03-05-2023 Use 5 needles pe r dose. 5 per day for her insulin. [id number] Start: 08-30-2023 Icd-[id number] Energen [id number] Start: 09-03-2013 Blood Sugar Diagnostic (Onetouch Verio Test Strips) strip Start: 10-15-2024 Insulin Syringe-Needle U-100 (Bd Insulin Syringe Ultra-Fine) 0.5 mL 31 gauge x 5/16 syringe Start: 05-29-2024 Pen Needle, Diabetic (Carefine Pen Needle) 30 gauge x 5/16 needle Start: 05-29-2024 Blood Sugar Diagnostic (Freestyle Lite Strips) strip Start: 08-12-2017 End: 10-07-2017 Blood Sugar Diagnostic (Onetouch Ultra Blue Test Strip) strip Start: 03-24-2018 End: 05-29-2024 Insulin Syringe-Needle U-100 (Bd Insulin Syringe Ultra-Fine) 0.5 mL 31 gauge x 5/16 syringe Start: 03-11-2018 End: 03-11-2018 Insulin Syringe-Needle U-100 (Bd Insulin Syringe Ultra-Fine) 0.5 mL 31 gauge x 5/16 syringe Start: 03-11-2018 End: 07-22-2018 Insulin Syringe-Needle U-100 (Bd Insulin Syringe Ultra-Fine) 0.5 mL 31 gauge x 5/16 syringe Start: 07-22-2018 End: 07-22-2018 Insulin Syringe-Needle U-100 (Bd Insulin Syringe Ultra-Fine) 0.5 mL 31 gauge x 5/16 syringe Start: 07-22-2018 End: 08-18-2018 Insulin Syringe-Needle U-100 (Bd Insulin Syringe Ultra-Fine) 0.5 mL 31 gauge x 5/16 syringe Start: 08-18-2018 End: 08-18-2018 Insulin Syringe-Needle U-100 (Bd Insulin Syringe Ultra-Fine) 0.5 mL 31 gauge x 5/16 syringe Start: 08-18-2018 End: 08-19-2018 Insulin Syringe-Needle U-100 (Bd Insulin Syringe Ultra-Fine) 0.5 mL 31 gauge x 5/16 syringe Start: 08-19-2018 End: 05-29-2024 Lancets (Onetouc h Delica Lancets) 30 gauge misc Start: 03-24-2018 End: 05-29-2024 Pen Needle, Diabetic (Carefine Pen Needle) 30 gauge x 5/16 needle Start: 08-18-2018 End: 08-18-2018 Pen Needle, Diabetic (Carefine Pen Needle) 30 gauge x 5/16 needle Start: 08-18-2018 End: 05-29-2024 Pen Needle, Diabetic (Comfort Ez Pen Felt) 32 gauge x 5/32 needle Start: 03-24-2018 End: 08-18-2018 Goals Date Patient Goal Desired Activity /State Personal health goal Functional Status Date Assessment Result Facility 11-26-2024 Functional status [facility] Work Phone: 05-09-2021 Daily Living Activities (DLA-20) [facility] Mental Status Date Assessment Result Facility 11-28-2024 Cognitive function Awake;Alert;A ppropriate;Foll ows [facility] Work Phone: 11-26-2024 Cognitive function Voice/Name [facility] Work Phone: 11-20-2024 Cognitive function Level Of Cons ciousness Awake;Alert;Appropriate;Foll ows Commands [facility] Work Phone: 11-07-2024 Cognitive function Awake;Alert;A ppropriate;Foll ows Commands [facility] Work Phone: 05-02-2022 Cognitive function Alert [facility] Work Phone: 04-30-2022 Cognitive function Appropriate;Cooperativ e [facility] Work Phone: 04-25-2022 Cognitive function Alert [facility] Work Phone: Clinical Notes 02-09-2016 to 11-28-2024 Note Date & Type Note Facility 11-28-2024 Discharge summary Note Date/Time November 28, 2024 12:40am [facility] Medical Records Department [address] [place] [address] Emergency Department Summary 11/27/24 MR#: [id number] Acct: [id number] Name: MICHELLE JULES Rep #:[id number] : 1965 59 From: Haider Garcia PCP: Dr. Lisseth Peñaloza MD Status:REG ER Location: ED [facility] History of Present Illness Chief Complaint: General Illness Informant: patient Onset/Context/Timing Onset: Today Context: Sudden Onset Timing: Continuous Worsened by: Nothing Relieved by: Nothing Narrative Narrative: Patient presents because her PICC line is not working. Patient states that her home health nurse was unable to use it this morning and the evening home health nurse also noted that she was unable to flush anything through the PICC line. Patient was then referred to the emergency department. Patient denies any fevers or chills. Patient is getting IV vancomycin for MRSA bacteremia. Patient does admit to some mild pain in her chest and shortness of breath. Patient also admits to a mild headache. [facility] Medical History MRSA (methicillin resistant staph aureus) culture positive Cardiomyopathy, ischemic Vitamin D deficiency Neuropathy History of placement of internal cardiac defibrillator (09/03/13) GERD (gastroesophageal reflux disease) Anxiety Obesity Type 2 diabetes mellitus with diabetic neuropathy, unspecified Chest pain Heart disease Headache Arthritis Seasonal allergies Nonischemic dilated cardiomyopathy Gout Pulmonary HTN Hyperlipidemia RLS (restless legs syndrome) HTN (hypertension) Home Medications ?Medication ?Instructions ?Recorded ?Last Taken ?Type docusate sodium 100 mg capsule 100 mg PO BID PRN const ipation 05/06/24 Unknown History (Colace) CareFine Pen Needle 30 gauge x #120 ea 05/29/24 Unknow n Rx 11/27 (pen needle, diabetic) insulin syringe-needle U-100 0.5 #90 ea 05/29/24 Unkno wn Rx mL 31 gauge x 5/16 (BD Insulin Syringe Ultra-Fine) sacubitril 24 mg-valsartan 26 mg 1 tab PO BID #60 tabs 06/03/24 Unknown Rx tablet (Entresto) blood sugar diagnostic (OneTouch #100 ea 10/15/24 Unkn own Rx Verio test strips) 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 meter (OneTouch #1 ea 10/15/24 Unknown R x Verio Reflect Meter) 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 sensor (FreeStyle #2 ea 10/15/24 Unknown Rx Lance 3 Plus Sensor device) 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,physician relations manager,cont #1 ea 10/15/24 Unknown Rx (FreeStyle Lance 3 [place]) dulaglutide 1.5 mg/0.5 mL 1.5 mg (0.5 mL) subcut QWEEK #2 mL 10/15/24 Unknown Rx subcutaneous pen injector (Trulicity) insulin lispro 100 unit/mL 30 unit subcut TID dm 10/19 Unknown History subcutaneous pen insulin glargine 100 unit/mL (3 40 unit (0.4 mL) subcu t BID #30 mL 10/21/24 Unknown Rx mL) subcutaneous pen (Lantus Solostar U-100 Insulin) atorvastatin 10 mg tablet (Lipitor) 10 mg PO DAILY cho lesterol #90 tabs 10/22/24 Unknown Rx carvedilol 25 mg tablet 25 mg PO Q12H #180 tabs 10/13 Unknown Rx cetirizine 10 mg capsule 10 mg PO DAILY #90 caps 10/13 Unknown Rx cholecalciferol (vitamin D3) 1,250 1,250 mcg PO QWEEK #12 caps 10/22/24 Unknown Rx mcg (50,000 unit) capsule duloxetine 60 mg capsule,delayed 60 mg PO BID #180 cap s 10/22/24 Unknown Rx release magnesium oxide 400 mg (241.3 mg 400 mg PO BID #180 ta bs 10/22/24 Unknown Rx magnesium) tablet gabapentin 300 mg capsule 300 mg PO DAILY #28 caps Unknown Rx spironolactone 25 mg tablet 25 mg PO DAILY #30 tabs Unknown Rx pantoprazole 40 mg tablet,delayed 40 mg PO BID #180 ta bs 11/19/24 Unknown Rx release (Protonix) ropinirole 0.5 mg tablet 0.5 mg PO QHS #90 tabs 11/19 Unknown Rx vancomycin 1.75 gram intravenous 1.75 g IV Q12H 39 day s 11/25/24 Unknown Rx solution Allergy/AdvReac Type Severity Reaction Status Date / Time simvastatin Allergy Severe Myalgia Verified 11/27/24 21:28 Latex, Natural Rubber Allergy Unknown Rash Verified 11/27/24 21:28 metformin Allergy Other Verified 11/27/24 21:28 adhesive tape AdvReac Severe Rash Verified 11/27/24 21:28 Family History Father Heart disease Myocardial infarction CAD (coronary artery disease) Mother CAD (coronary artery disease) Heart disease Cancer breast Grandmother Colon cancer Daughter Breast cancer Surgical History History of left heart catheterization Hx of appendectomy H/O colectomy History of hysteroscopy Social History household members: family and other details: ex mother in law , ex housing: house current occupational status: disabled 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 Smoking Status: Never smoker second hand exposure: No alcohol intake: never substance use type: does not use what type of physical activity do you participate in: none seatbelt use: always do you feel safe at home: Yes ROS ROS ED Constitutional Constitutional ED: Denies chills or fever(s) Eyes Eyes: Denies blurry vision or change in vision ENT ENT ED: Denies rhinorrhea or sore throat Cardiovascular Cardiovascular: Reports chest pain; Denies palpitations Respiratory/Chest Respiratory/Chest: Reports dyspnea; Denies cough Gastrointestinal Gastrointestinal: Denies nausea or vomiting Genitourinary Genitourinary ED: Denies dysuria or hematuria Musculoskeletal Musculoskeletal: Denies back pain or neck pain Integumentary Denies abscess or rash Neurologic Neurologic: Reports headache(s); Denies weakness Allergic/Immunologic Allergic/Immunologic ED: Denies mouth swelling or urticaria EXAM Physical Exam Const Vital Signs: 11/27/24 21:28 Temperature 97.5 F L Temperature Source Temporal Pulse Rate 78 Respiratory Rate 15 Blood Pressure 167/71 H Blood Pressure Mean 103 Pulse Ox 99 Oxygen Delivery Method Room Air Positive well nourished and well developed Constitutional Narrative: BMI is 39.7 General Appearance ED: well developed and NAD HEENT Reports moist mucous membranes Neck supple and no JVD Resp normal respiratory effort and clear to auscultation bilaterally Cardio regular rate and regular rhythm GI non-tender and non-distended Palpation: soft Extremity Extremity Narrative: The PICC line site over the left upper arm is clean. There is no erythema or drainage. Dressing is in place. There is no tenderness over the PICC line site. There is full range of motion of the left upper extremity. Neuro oriented x3, CN's II-XII intact bilaterally and no sensory deficits noted Sensorium / Orientation: alert Motor Exam: strength 5/5 throughout Psych mental status grossly normal Skin no rashes or lesions noted MDM MDM MDM Narrative Medical decision making narrative: Differential diagnosis includes pneumonia, pneumothorax, and occluded PICC line. Chest x-ray will be obtained to assess for pneumonia and pneumothorax. History & Record Review Additional record(s) reviewed:: Prior inpatient record, Prior ED visit and [facility] Radiography Chest X-Ray - ED: 2 View, Read by ED Physician, Read by Radiologist and No AcuteDisease Diagnostic Testing: Clinical Impression(s) from Imaging Studies Chest X-Ray 11/27/24 21:55 IMPRESSION: No acute cardiopulmonary process. Reading Location: [facility] and lateral chest x-ray was obtained. There are 2 views. On my independent interpretation, lung barroso are clear. There is normal cardiac silhouette. Bony thorax is normal. There is no acute process noted. Radiologist also interpreted the x-ray and agrees. Treatment and Re-Evaluation :: Cathflo Activase was infused by nursing electrical assemblies supervisor. PICC line was able to be flushed. Patient was instructed to continue her antibiotics as prescribed. Patient was instructed to follow-up with her primary care physician in 5 to 7 days. Patient understood and was agreeable with the plan. All questions were answered. Discharge Plan Triage Chief Complaint: General Illness ED Provider: Haider Valdes Dx/Rx/DC Orders Clinical Impression: Occlusion of peripherally inserted central catheter (PICC) line, MRSA bacteremia, HTN (hypertension) Instructions: MRSA Prescriptions: No Action docusate sodium [Colace] 100 mg capsule 100 mg PO BID PRN (Reason: constipation) spironolactone 25 mg tablet 25 mg PO DAILY Qty: 30 11RF (DME) CareFine Pen Needle 30 gauge x 5/16 needle See Dose Instructions .ROUTE .MEDSUPPLY Qty: 120 11RF Dose Instruction: As directed Rx Instructions: use with insulin pen 4 x qd (DME) insulin syringe-needle U-100 [BD Insulin Syringe Ultra-Fine] 0.5 mL 31 gauge x 5/16 syringe See Dose Instructions .ROUTE .MEDSUPPLY Qty: 90 11RF Dose Instruction: As directed Rx Instructions: use to inject insulin tid insulin lispro 100 unit/mL insulin pen 30 unit subcut TID Rx Instructions: 10 u w/ snacks (DME) FreeStyle Lance 3 [place] Misc See Rx Instructions .Route Qty: 1 0RF Rx Instructions: As directed (DME) FreeStyle Lance 3 Plus Sensor Device See Rx Instructions .Route Qty: 2 5RF Rx Instructions: 1 sensor q 15 Trulicity 1.5 mg/0.5 mL pen injector 1.5 mg subcut QWEEK Qty: 2 3RF (DME) OneTouch Verio test strips Strip See Rx Instructions .Route Qty: 100 0RF Rx Instructions: 4x/day (DME) 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 meter [OneTouch Verio Reflect Meter] Misc See Rx Instructions .Route Qty: 1 0RF Rx Instructions: As directed vancomycin 1.75 gram recon soln 1.75 g IV Q12H 39 Days Rx Instructions: stop date 01/02/25. Dx: MRSA bacteremia. Weekly bmp, cbc, and vanc trough. Fax to [phone]. Routine picc care per protocol. Entresto 24-26 mg tablet 1 tab PO BID Qty: 60 11RF insulin glargine [Lantus Solostar U-100 Insulin] 100 unit/mL (3 mL) insulin pen 40 unit subcut BID Qty: 30 1RF magnesium oxide 400 mg (241.3 mg magnesium) tablet 400 mg PO BID Qty: 180 1RF Patient Comments: supplement duloxetine 60 mg capsule,delayed release(DR/EC) 60 mg PO BID Qty: 180 1RF cholecalciferol (vitamin D3) 1,250 mcg (50,000 unit) capsule 1,250 mcg PO QWEEK Qty: 12 1RF carvedilol 25 mg tablet 25 mg PO Q12H Qty: 180 1RF Rx Instructions: must administer with a meal/food cetirizine 10 mg capsule 10 mg PO DAILY Qty: 90 1RF atorvastatin [Lipitor] 10 mg tablet 10 mg PO DAILY Qty: 90 0RF gabapentin 300 mg capsule 300 mg PO DAILY Qty: 28 0RF ropinirole 0.5 mg tablet 0.5 mg PO QHS Qty: 90 0RF Rx Instructions: administer 1-3 hours before bedtime pantoprazole [Protonix] 40 mg tablet,delayed release (DR/EC) 40 mg PO BID Qty: 180 0RF Primary Care Provider: Lisseth Peñaloza Referrals: Lisseth Peñaloza MD [Primary Care Provider] - 5-7 Days Print Language: Solomon Islander Disposition Disposition: Home, Self Care What to do if you have Problems For any increased pain, shortness of breath, bleeding, nausea or vomiting, chestpain, or any unexpected problems, contact your Primary Care Provider. Call [facility] ([phone]) or report to the closest Emergency Room. Call 911 if necessary. 11/28/24 0040 <Electronically signed by Haider Valdes DO> Cosigner Signature (if applicable): CC: Dr. Lisseth Peñaloza MD ~ Signed [facility] Work Phone: 1(925) 841-328905-16-2025 Radiology Diagnostic study [facility]05-15-2025 Discharge summary Author Denisse [facility] Note Date/Time November 26, 2024 12:19 pm [facility] Medical Records Department [address] [place] [address] Instructions for Home/Discharge Instructions 11/26/24 1218 MR#: [id number] Acct: [id number] Name: MICHELLE JULES Rep #:[id number] : 1965 59 From: Denisse Guan MD PCP: Dr. Lisseth Peñaloza MD Status:ADM IN Discharge Instructions Diet Discharge Diet: Low fat / Low cholesterol DC O2, CPAP, BIPAP needs Home O2 Discharge instructions: No Dressing / Incision Discharge Activity: Return to Normal Activity Weight Bearing Status: Weight bearing as tolerated Dressing / Incision Call your doctor if you observe: Fever of 101 or Higher, Shortness of breath andSwelling in the ankles Follow Up Care Test Results: Test results from this visit will be discussed in further detail at your follow- up appointment, if applicable. Discharge Plan Admission Admit Date/Time: 11/20/24 18:37 Primary Reason for Your Visit: MRSA bacteremia Attending Provider: Denisse Guan Primary Care Provider: Lisseth Peñaloza Consulting Providers: Mariah Brewer; Karthik Tang; Clifton Alexander; Clifford Cody; Deon Nicole; Jeanie Hunt; Rajan De La Cruz; Scout Curry; Glenys Mcmahan; Pedro Luis Lal; Jamar Chi; Jesus Varela; Lara Durant; Sigrid Adkins; Camila Mclean; Guilherme Lopez; Dada Tidwell; Mario Keller; Flash Newton; Lida Falcon; Jhony Zhang; Varun Collier; Yusuf Field; Thomas Paulino; Jean Trujillo; Michel Haq; Haider Smith Instructions Patient Instructions: ED Bacteremia, Suspected (Adult) Discharge Orders/Prescriptions Prescriptions: New vancomycin 1.75 gram recon soln 1.75 g IV Q12H 39 Days Rx Instructions: stop date 01/02/25. Dx: MRSA bacteremia. Weekly bmp, cbc, and vanc trough. Fax to [phone]. Routine picc care per protocol. No Action docusate sodium [Colace] 100 mg capsule 100 mg PO BID PRN (Reason: constipation) spironolactone 25 mg tablet 25 mg PO DAILY Qty: 30 11RF (DME) CareFine Pen Needle 30 gauge x 5/16 needle See Dose Instructions .ROUTE .MEDSUPPLY Qty: 120 11RF Dose Instruction: As directed Rx Instructions: use with insulin pen 4 x qd (DME) insulin syringe-needle U-100 [BD Insulin Syringe Ultra-Fine] 0.5 mL 31 gauge x 5/16 syringe See Dose Instructions .ROUTE .MEDSUPPLY Qty: 90 11RF Dose Instruction: As directed Rx Instructions: use to inject insulin tid insulin lispro 100 unit/mL insulin pen 30 unit subcut TID Rx Instructions: 10 u w/ snacks (DME) FreeStyle Lance 3 [place] Misc See Rx Instructions .Route Qty: 1 0RF Rx Instructions: As directed (DME) FreeStyle Lance 3 Plus Sensor Device See Rx Instructions .Route Qty: 2 5RF Rx Instructions: 1 sensor q 15 Trulicity 1.5 mg/0.5 mL pen injector 1.5 mg subcut QWEEK Qty: 2 3RF (DME) OneTouch Verio test strips Strip See Rx Instructions .Route Qty: 100 0RF Rx Instructions: 4x/day (DME) 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 meter [OneTouch Verio Reflect Meter] Misc See Rx Instructions .Route Qty: 1 0RF Rx Instructions: As directed Entresto 24-26 mg tablet 1 tab PO BID Qty: 60 11RF insulin glargine [Lantus Solostar U-100 Insulin] 100 unit/mL (3 mL) insulin pen 40 unit subcut BID Qty: 30 1RF magnesium oxide 400 mg (241.3 mg magnesium) tablet 400 mg PO BID Qty: 180 1RF Patient Comments: supplement duloxetine 60 mg capsule,delayed release(DR/EC) 60 mg PO BID Qty: 180 1RF cholecalciferol (vitamin D3) 1,250 mcg (50,000 unit) capsule 1,250 mcg PO QWEEK Qty: 12 1RF carvedilol 25 mg tablet 25 mg PO Q12H Qty: 180 1RF Rx Instructions: must administer with a meal/food cetirizine 10 mg capsule 10 mg PO DAILY Qty: 90 1RF atorvastatin [Lipitor] 10 mg tablet 10 mg PO DAILY Qty: 90 0RF gabapentin 300 mg capsule 300 mg PO DAILY Qty: 28 0RF ropinirole 0.5 mg tablet 0.5 mg PO QHS Qty: 90 0RF Rx Instructions: administer 1-3 hours before bedtime pantoprazole [Protonix] 40 mg tablet,delayed release (DR/EC) 40 mg PO BID Qty: 180 0RF Referrals / Follow Up: Lisseth Peñaloza MD [Primary Care Provider] - Within 1 Week Michel Haq MD [Med Staff - Active Staff] - Within 1 Week Disposition Disposition (needs filled in before D/C Order can be placed): Home Health Service 11/26/24 1219<Electronically signed by Denisse Guan MD>Denisse Guan MD CC: Dr. Clifton Alexander MD; Dr. Lisseth Peñaloza MD; Dr. Karthik Tang MD; Dr. Clifford Cody MD; Dr. Jean Trujillo MD; Dr. Jeanie Hunt MD; Dr. Deon Nicole DO; Dr. Rajan De La Cruz MD; Dr. Haider Smith DO; Dr. Scout Curry MD; Dr. Pedro Luis Lal MD; Dr. Jamar Chi MD; Dr. Jesus Varela MD; Dr. Lara Durant MD; Dr. Sigrid Adkins MD; Dr. Camila Mclean MD; Dr. Mariah Brewer MD; Dr. Dada Tidwell MD; Dr. Guilherme Lopez MD; Dr. Michel Haq MD; Dr. Mario Keller MD; Dr. Jhony Zhang MD; Dr. Lida Falcon MD; Dr. Flash Newton DO; Dr. Varun Collier DO; Dr. Yusuf Field MD; Dr. Thomas Paulino MD; Dr. Dustin MD ~ Signed [facility] Work Phone: 1([phone]) 870-902505-15-2025 [facility]05-14-2025 Progress note [facility] Note Date/Time November 25, 2024 3:01p [facility] Medical Records Department [address] [place] [address] Progress Note - Hospitalist 11/25/24 0804 MR#: [id number] Acct: [id number] Name: MICHELLE JULES Rep #:[id number] : 1965 59 From: Haider Smith DO PCP: Dr. Lisseth Peñaloza MD Status:ADM IN Location: [place] [address] Reason for Visit Reason for Visit: Diagnoses Sepsis, unspecified organism (11/20/24) Methicillin resistant Staphylococcus aureus infection as the cause of diseases classified elsewhere (11/20/24) Type 2 diabetes mellitus without complications (11/20/24) Other cardiomyopathies (11/20/24) Low back pain, unspecified (11/20/24) Fever, unspecified (11/20/24) Shock, unspecified (11/20/24) Bacteremia (11/20/24) Presence of automatic (implantable) cardiac defibrillator (11/20/24) Subjective Subjective Feeling well. No events overnight. Objective Data Objective Data Vital Signs: Vital Signs Temp Pulse Resp BP Pulse Ox O2 Del Method O2 Flow Rate 36.7 C 61 16 141/78 H 97 Room Air 2 11/25/24 03:10 11/25/24 03:10 11/25/24 03:10 11/25/24 03:10 11/25/24 03:10 11/25/24 03:10 11/23/24 08:10 Oxygen Flow Rate (L/min) 2 Oxygen Delivery Method Room Air Weight: 124 kg Body Mass Index (BMI) 40.4 Intake & Output: Intake and Output for Last 24 Hours 11/23/24 11/24/24 11/25/24 23:59 23:59 23:59 Intake Total 1540 / 1540 1680 / 1680 Balance 1540 / 1540 1680 / 1680 Lab / Micro Data 11/25/24 05:24 11/25/24 05:24 Labs: Laboratory Results - last 24 hr 11/24/24 11:28: POC Glucose 201 H 11/24/24 16:16: POC Glucose 94 11/24/24 22:38: POC Glucose 99 11/25/24 05:24: WBC 4.7, RBC 3.59 L, Hgb 10.4 L, Hct 31.8 L, MCV 88.6, MCH 29.0,MCHC 32.7, RDW Std Deviation 46.5 H, RDW Coeff of [place] 14.4, Plt Count 142 L, MPV10.0, Immature Gran % (Auto) 1.900 H, Neut % (Auto) 45.6 L, Lymph % (Auto) 37.4,[place] % (Auto) 12.1 H, Eos % (Auto) 2.1, Baso % (Auto) 0.9, Absolute Neuts (auto)2.1, Absolute Lymphs (auto) 1.76, Nucleated RBC % 0, Sodium 141, Potassium 3.6, Chloride 109 H, Carbon Dioxide 22.0, Anion Gap 10, BUN 5, Creatinine 0.66 L, Estim Creat Clear Calc 131.01, Est GFR (MDRD) Non-Af 102, BUN/Creatinine Ratio 7.2 L, Glucose 125 H, Calcium 8.9, Vancomycin Trough 21.2 H 11/25/24 06:31: POC Glucose 132 H Micro: Microbiology 11/20/24 15:03 Blood Culture (Wb) - Venous Blood Culture - Final Staphylococcus aureus 11/20/24 14:33 Blood Culture (Wb) - Anticubital Left Bacteria Detection (PCR) - Final Meth. resistant Staph. aureus 11/20/24 14:33 Blood Culture (Wb) - Anticubital Left Blood Culture - Final Meth. resistant Staph. aureus 11/20/24 14:33 Urine Catheter - Catheter Urine Culture - Final Culture exhibits no growth. 11/20/24 05:15 Mucosa - Nasopharyngeal Respiratory Panel (PCR) - Final 11/20/24 14:33 Mucosa - Nose SARS-CoV-2, Influenza & RSV (PCR) - Final Rhythm Strip Rhythm Strip: A sensed BiV paced Rate: 62 Physical Exam Const alert and no apparent distress Constitutional Narrative: up in bed. Non-toxic. afebrile. HEENT head/scalp atraumatic Psych affect normal Assessment & Plan Assessment/Plan (1) Shock: PLAN: Resolved Likely septic given bacteremia. pt did not receive 30 cc/kg of IVF given h/o ischemic cardiomyopathy. Norepi gttweaned off. POA. vancomycin Follow up cultures. Per ID recommending follow up cultures and if negative, willplan on 6 weeks of IV vancomycin (not cefazolin as previously mentioned) (2) Bacteremia: PLAN: Unclear source. Blood culture 11/20/24 showing GPC in clusters. PCR + MRSA. Repeat blood cultures on 11/21 and so far negative. TTE on 11/21 showed an EF 40%. KANDY negative. Blood cultures 11/21 pending Continuevanc for now. Likely the cefepime can be dropped, but will await on the final blood cultures from 11/20 before discontinuation. (3) Low back pain: PLAN: status post fall. Lumbar CT showed severe DDD at L5-S1. paraspinal musculature. Lidoderm patch. supportive mgmt. PLAN: Plan Chronic conditions: * Ischemic cardiomyopathy: EF 40% resume carvedilol and sacubitril (initially held given shock) * obesity class III: complicates care and recovery * DM2: Glargine and SSI. a1c 10.7 09/07/24 VTE prophylaxis: LMWH Disposition: to home with C for IV abx on 11/26. Charges/Coding Visit Charges Inpatient E&M: 01826 Subs Hosp L1 11/25/24 1501 <Electronically signed by Haider Smith DO> Cosigner Signature (if applicable): CC: ~ Signed [facility] Work Phone: 1(882) 294-860505-14-2025 Progress note Author Michel Haq [facility] Note Date/Time November 25, 2024 1:16p m [facility] Medical Records Department [address] [place] [address] Progress Note - Infect Disease 11/25/24 1314 MR#: [id number] Acct: [id number] Name: MICHELLE JULES Rep #:[id number] : 1965 59 From: Michel olivarez MD PCP: Dr. Lisseth Peñaloza MD Status:ADM IN Location: [place] [address] Physical Exam Narrative No fever, no n/v/d. Feeling better. Back less sore. Const alert and no apparent distress General Appearance: cooperative Resp normal air movement and clear to auscultation bilaterally Cardio regular rate and regular rhythm GI soft to palpation, non-tender and non-distended Skin no rashes or lesions noted ID ID: Route of nutrition/ use of supplements: [] Nutritional Intake: [] IV Site: [] Thapa Catheter: [] Assessment & Plan Assessment/Plan (1) MRSA bacteremia: PLAN: sepsis due to MRSA bacteremia, suspected source recent fall with scrape to L elbow. KANDY reportedly showed no veg. Repeat bcx ngtd. Having point tenderness over L spine. Noncontrast lumbar CT showed only severe degenerative disease, and she reports her pacer-ICD is not MRI compatible. Will cont vanc. Will order picc and 6 weeks iv vanc stop date 01/02/25 with weekly labs and ID followup in 2-3 weeks. With cardiac device in place, will need to consider longer term suppressive po abx. D/w director case management Will follow (2) Sepsis: (3) Low back pain: 11/25/24 1316 <Electronically signed by Michel Haq MD> Cosigner Signature (if applicable): CC: ~ Signed [facility] Work Phone: 1(182) 475-384705-14-2025 Consult note Author Haider Case [facility] Note Date/Time November 25, 2024 6:33a m [facility] Medical Records Department [address] [place] [address] Pharmacokinetic/Renal -Consult 11/25/24 0631 MR#: [id number] Acct: [id number] Name: MICHELLE JULES Rep #:[id number] : 1965 59 From: Haider Case PCP: Dr. Lisseth Peñaloza MD Status:ADM IN Location: [place] [address] Consult Antibiotic Management Pharmacy has been consulted to manage selected antibiotic: Vancomycin Type of Intervention Type of Consult: Follow-up Suspected Infection Suspected Infection: Sepsis Labs Labs: Sodium 141 mmol/L (133-145) 11/25/24 05:24 Potassium 3.6 mmol/L (3.3-5.1) 11/25/24 05:24 Chloride 109 mmol/L (98-108) H 11/25/24 05:24 Carbon Dioxide 22.0 mmol/L (21.0-32.0) 11/25/24 05:24 Anion Gap 10 (5-15) 11/25/24 05:24 BUN 5 mg/dL (4-19) 11/25/24 05:24 Creatinine 0.66 mg/dL (0.70-1.20) L 11/25/24 05:24 Est GFR (MDRD) Non-Af 102 (>60) 11/25/24 05:24 BUN/Creatinine Ratio 7.2 RATIO (10-20) L 11/25/24 05:24 Glucose 125 mg/dL (70-99) H 11/25/24 05:24 Vancomycin Trough 21.2 ug/mL (5.0-15.0) H 11/25/24 05:24 Microbiology Microbiology: Microbiology 11/20/24 15:03 Blood Culture (Wb) - Venous Blood Culture - Final Staphylococcus aureus 11/20/24 14:33 Blood Culture (Wb) - Anticubital Left Bacteria Detection (PCR) - Final Meth. resistant Staph. aureus 11/20/24 14:33 Blood Culture (Wb) - Anticubital Left Blood Culture - Final Meth. resistant Staph. aureus 11/20/24 14:33 Urine Catheter - Catheter Urine Culture - Final Culture exhibits no growth. 11/20/24 05:15 Mucosa - Nasopharyngeal Respiratory Panel (PCR) - Final 11/20/24 14:33 Mucosa - Nose SARS-CoV-2, Influenza & RSV (PCR) - Final Dosing Weight Weight used for dosin kg Estimated Creatinine Clearance Estimated Creatinine Clearance: 131 Goal Trough Goal Trough: 15-20 mcg/mL Pharmacy Plan for Drug Dosing Pharmacy Plan for Drug Dosing: Vancomycin trough level of 21.2, drawn 11hrs post-dose, was slightly above the target range of 15-20. Will decrease dose to 1750mg q12h and draw a trough levelprior to the fourth dose of the new strength. Pharmacy Service will continue to monitor and adjust dosing as required. Follow-Up Labs Follow-Up Labs: Trough: Vancomycin Date/Time Labs Ordered Labs to be done on [date and time ordered]: 11/26/24 @1800 11/25/24 0633 <Electronically signed by Haider burrell> Date _ Haider Quiles Signature (if applicable): Date CC: ~ Signed [facility] Work Phone: [phone]) 783-475305-13-2025 Progress note Author Haider Smith [facility] Note Date/Time November 24, 2024 11:39 am [facility] Medical Records Department [address] [place] [address] [place] [address] Progress Note - Hospitalist 11/24/24 0736 MR#: [id number] Acct: [id number] Name: MICHELLE JULES Rep #:[id number] : 1965 59 From: Haider Smith DO PCP: Dr. Lisseth Peñaloza MD Status:ADM IN Location: [place] [address] Reason for Visit Reason for Visit: Diagnoses Sepsis, unspecified organism (11/20/24) Methicillin resistant Staphylococcus aureus infection as the cause of diseases classified elsewhere (11/20/24) Type 2 diabetes mellitus without complications (11/20/24) Other cardiomyopathies (11/20/24) Low back pain, unspecified (11/20/24) Fever, unspecified (11/20/24) Shock, unspecified (11/20/24) Bacteremia (11/20/24) Presence of automatic (implantable) cardiac defibrillator (11/20/24) Subjective Subjective Feels well. No new complaints. Objective Data Objective Data Vital Signs: Vital Signs Temp Pulse Resp BP Pulse Ox O2 Del Method O2 Flow Rate 36.8 C 69 16 120/64 93 Room Air 2 11/24/24 03:50 11/24/24 03:50 11/24/24 03:50 11/24/24 03:50 11/24/24 03:50 11/24/24 07:24 11/23/24 08:10 Oxygen Flow Rate (L/min) 2 Oxygen Delivery Method Room Air Weight: 123.1 kg Body Mass Index (BMI) 40.1 Intake & Output: Intake and Output for Last 24 Hours 11/22/24 11/23/24 11/24/24 23:59 23:59 23:59 Intake Total 1779.00 / 1779.00 1540 / 1540 Output Total 458 / 458 Balance 1321.00 / 1321.00 1540 / 1540 Lab / Micro Data 11/24/24 04:55 11/24/24 04:55 Labs: Laboratory Results - last 24 hr 11/23/24 08:01: POC Glucose 83 11/23/24 14:29: POC Glucose 92 11/23/24 16:14: POC Glucose 93 11/23/24 17:30: Vancomycin Trough 18.3 H 11/23/24 22:05: POC Glucose 82 11/24/24 04:55: WBC 4.4, RBC 3.59 L, Hgb 10.4 L, Hct 32.4 L, MCV 90.3, MCH 29.0,MCHC 32.1, RDW Std Deviation 48.1 H, RDW Coeff of Ttaum 14.4, Plt Count 123 L, MPV10.7, Immature Gran % (Auto) 0.500, Neut % (Auto) 46.3 L, Lymph % (Auto) 38.3, [place] % (Auto) 11.0 H, Eos % (Auto) 3.0, Baso % (Auto) 0.9, Absolute Neuts (auto) 2.0, Absolute Lymphs (auto) 1.67, Nucleated RBC % 0, Sodium 140, Potassium 3.9, Chloride 107, Carbon Dioxide 22.7, Anion Gap 10, BUN 6, Creatinine 0.62 L, EstimCreat Clear Calc 138.90, Est GFR (MDRD) Non-Af 103, BUN/Creatinine Ratio 9.7 L, Glucose 85, Calcium 8.9 11/24/24 06:19: POC Glucose 91 Micro: Microbiology 11/20/24 15:03 Blood Culture (Wb) - Venous Blood Culture - Final Staphylococcus aureus 11/20/24 14:33 Blood Culture (Wb) - Anticubital Left Bacteria Detection (PCR) - Final Meth. resistant Staph. aureus 11/20/24 14:33 Blood Culture (Wb) - Anticubital Left Blood Culture - Final Meth. resistant Staph. aureus 11/20/24 14:33 Urine Catheter - Catheter Urine Culture - Final Culture exhibits no growth. 11/20/24 05:15 Mucosa - Nasopharyngeal Respiratory Panel (PCR) - Final 11/20/24 14:33 Mucosa - Nose SARS-CoV-2, Influenza & RSV (PCR) - Final Radiography Diagnostic Testing: Radiology Impression Transesophageal Echocardiogram 11/23/24 07:12 Interpretation Summary Normal LV size. Left ventricular systolic function is normal. The left ventricular ejection fraction is 45 %. Pacer leads seen with no vegetations seen No pericardial effusion. Ordering Physician: Radha Dumont Referring Physician: Lisseth Peñaloza Performed By: Cassy Becker, ELENACS, RVT Rhythm Strip Rhythm Strip: A sensed BiV paced Rate: 62 Physical Exam Const alert and no apparent distress Constitutional Narrative: up in chair. non-toxic. afebrile. HEENT head/scalp atraumatic and moist oral mucous membranes Resp normal respiratory effort and no retractions Assessment & Plan Assessment/Plan (1) Shock: PLAN: Resolved Likely septic given bacteremia. pt did not receive 30 cc/kg of IVF given h/o ischemic cardiomyopathy. Norepi gttweaned off. POA. vancomycin Follow up cultures. Per ID recommending follow up cultures and if negative, willplan on 6 weeks of IV cefazolin. (2) Bacteremia: PLAN: Unclear source. Blood culture 11/20/24 showing GPC in clusters. PCR + MRSA. Repeat blood cultures on 11/21 pending. TTE on 11/21 showed an EF 40%. KANDY negative. Blood cultures 11/21pending Continuevanc for now. Likely the cefepime can be dropped, but will await on the final blood cultures from 11/20 before discontinuation. (3) Low back pain: PLAN: status post fall. Lumbar CT showed severe DDD at L5-S1. paraspinal musculature. Lidoderm patch. supportive mgmt. PLAN: Plan Chronic conditions: * Ischemic cardiomyopathy: EF 40% resume carvedilol and sacubitril (initially held given shock) * obesity class III: complicates care and recovery * DM2: Glargine and SSI. a1c 10.7 09/07/24 VTE prophylaxis: LMWH Charges/Coding Visit Charges Inpatient E&M: 58274 Subs Hosp L2 11/24/24 1139 <Electronically signed by Haider Smith DO> Cosigner Signature (if applicable): CC: ~ Signed [facility] Work Phone: [phone]) 294-581905-13-2025 Progress note Author Michel Haq [facility] Note Date/Time November 24, 2024 10:25 am [facility] Medical Records Department [address] [place] [address] Progress Note - Infect Disease 11/24/24 1022 MR#: [id number] Acct: [id number] Name: MICHELLE JULES Rep #:[id number] : 1965 59 From: Michel olivarez MD PCP: Dr. Lisseth Peñaloza MD Status:ADM IN Location: [place] [address] Physical Exam Narrative Feeling better, no fever, no n/v/d. Pain in back slightly improved. Const alert and no apparent distress General Appearance: cooperative Resp normal air movement and clear to auscultation bilaterally Cardio regular rate and regular rhythm GI soft to palpation, non-tender and non-distended Skin no rashes or lesions noted ID ID: Route of nutrition/ use of supplements: [] Nutritional Intake: [] IV Site: [] Thapa Catheter: [] Assessment & Plan Assessment/Plan (1) MRSA bacteremia: PLAN: sepsis due to MRSA bacteremia, suspected source recent fall with scrape to L elbow. KANDY reportedly showed no veg. Repeat bcx ngtd. Having point tenderness over L spine. Noncontrast lumbar CT showed only severe degenerative disease, and she reports her pacer-ICD is not MRI compatible. Will cont vanc. If back pain does not improve, may need spine surgery eval and/or CT with contrast. If bcx stay neg tomorrow, plan will be picc and 6 weeks iv cefazolin. Will follow (2) Sepsis: (3) Low back pain: 11/24/24 1025 <Electronically signed by Michel Haq MD> Cosigner Signature (if applicable): CC: ~ Signed [facility] Work Phone: [phone]) 619-722705-13-2025 Progress note Author Kasandra Hinkle [facility] Note Date/Time November 24, 2024 7:43a m [facility] Medical Records Department [address] [place] [address] Progress Note - Cardiology 11/24/24 0735 MR#: [id number] Acct: [id number] Name: MICHELLE JULES Rep #:[id number] : 1965 59 From: Kasandra Hinkle MD PCP: Dr. Lisseth Peñaloza MD Status:ADM IN Location: [id number] Subjective Subjective Patient is resting comfortably in the bed. Vital signs have been stable over the last 24 hours. Transesophageal echocardiogram yesterday showed no evidence of SBE. The device wires were clean and no evidence of vegetation. There was no obvious vegetations on the valves. The patient remains in atrial sensed ventricular paced rhythm at 62 bpm on telemetry. Objective Data Vital Signs: Vital Signs Temp Pulse Resp BP Pulse Ox O2 Del Method O2 Flow Rate 98.2 F 69 16 120/64 93 Room Air 2 11/24/24 03:50 11/24/24 03:50 11/24/24 03:50 11/24/24 03:50 11/24/24 03:50 11/24/24 07:24 11/23/24 08:10 Oxygen Flow Rate (L/min) 2 Oxygen Delivery Method Room Air Weight: 271 lb 6.224 oz Body Mass Index (BMI) 40.1 Intake & Output: Intake and Output for Last 24 Hours 11/22/24 11/23/24 11/24/24 23:59 23:59 23:59 Intake Total 1779.00 / 1779.00 1540 / 1540 Output Total 458 / 458 Balance 1321.00 / 1321.00 1540 / 1540 Lab / Micro Data 11/24/24 04:55 11/24/24 04:55 Labs: Laboratory Results - last 24 hr 11/23/24 08:01: POC Glucose 83 11/23/24 14:29: POC Glucose 92 11/23/24 16:14: POC Glucose 93 11/23/24 17:30: Vancomycin Trough 18.3 H 11/23/24 22:05: POC Glucose 82 11/24/24 04:55: WBC 4.4, RBC 3.59 L, Hgb 10.4 L, Hct 32.4 L, MCV 90.3, MCH 29.0,MCHC 32.1, RDW Std Deviation 48.1 H, RDW Coeff of Tatum 14.4, Plt Count 123 L, MPV10.7, Immature Gran % (Auto) 0.500, Neut % (Auto) 46.3 L, Lymph % (Auto) 38.3, [place] % (Auto) 11.0 H, Eos % (Auto) 3.0, Baso % (Auto) 0.9, Absolute Neuts (auto) 2.0, Absolute Lymphs (auto) 1.67, Nucleated RBC % 0, Sodium 140, Potassium 3.9, Chloride 107, Carbon Dioxide 22.7, Anion Gap 10, BUN 6, Creatinine 0.62 L, EstimCreat Clear Calc 138.90, Est GFR (MDRD) Non-Af 103, BUN/Creatinine Ratio 9.7 L, Glucose 85, Calcium 8.9 11/24/24 06:19: POC Glucose 91 Micro: Microbiology 11/20/24 15:03 Blood Culture (Wb) - Venous Blood Culture - Final Staphylococcus aureus 11/20/24 14:33 Blood Culture (Wb) - Anticubital Left Bacteria Detection (PCR) - Final Meth. resistant Staph. aureus 11/20/24 14:33 Blood Culture (Wb) - Anticubital Left Blood Culture - Final Meth. resistant Staph. aureus Rhythm Strip Rhythm Strip: A sensed BiV paced Rate: 62 Cardiology Labs/Tests 11/24/24 04:55: WBC 4.4, RBC 3.59 L, Hgb 10.4 L, Hct 32.4 L, MCV 90.3, MCH 29.0,MCHC 32.1, Plt Count 123 L, MPV 10.7, Immature Gran % (Auto) 0.500, Neut % (Auto) 46.3 L, Lymph % (Auto) 38.3, [place] % (Auto) 11.0 H, Eos % (Auto) 3.0, Baso% (Auto) 0.9, Absolute Neuts (auto) 2.0, Nucleated RBC % 0, Sodium 140, Potassium 3.9, Chloride 107, Carbon Dioxide 22.7, Anion Gap 10, BUN 6, Creatinine 0.62 L, Est GFR (MDRD) Non-Af 103, BUN/Creatinine Ratio 9.7 L, [id number], Calcium 8.9 Rhythm: EKG: ECHO: Stress Test: Cardiac Cath: PCI: CT Surgery: Holter monitor: EPS: PPM: CXR: Chest CT Scan: Radiography Diagnostic Testing: Radiology Impression Transesophageal Echocardiogram 11/23/24 07:12 Interpretation Summary Normal LV size. Left ventricular systolic function is normal. The left ventricular ejection fraction is 45 %. Pacer leads seen with no vegetations seen No pericardial effusion. Ordering Physician: Radha Dumont Referring Physician: Lisseth Peñaloza Performed By: Cassy Becker, RDCS, RVT Physical Exam Const alert and oriented x3 HEENT normocephalic Eyes EOMs intact bilaterally Neck no JVD Chest Chest: left pectoral incision Resp normal respiratory effort Cardio regular rate and regular rhythm Extremity no pedal edema Psych mental status grossly normal Assessment & Plan Assessment/Plan (1) Nonischemic cardiomyopathy: PLAN: Patient's device is working appropriately he is atrially sensed ventricular paced. She is followed by the [facility]. She has an appointment to see Dr. Trujillo in December. From a cardiovascular standpoint the patient should continue her home medications and follow-up for her previously arranged appointments. (2) MRSA bacteremia: PLAN: Patient is continuing to be treated by the primary service for her MRSA bacteremia. There was no evidence of vegetations on her transesophageal echocardiogram yesterday. PLAN: Plan From a cardiovascular standpoint the patient can be discharged to home and follow-up per her previous arranged cardiac appointments. Charges/Coding Visit Charges Inpatient E&M: 42496 Subs Hosp L2 11/24/24 0743 <Electronically signed by Kasandra Hinkle MD> Cosigner Signature (if applicable): CC: ~ Signed [facility] Work Phone: [phone] 575-255205-12-2025 Consult note Author Hang Powers [facility] Note Date/Time November 23, 2024 6:32p m [facility] Medical Records Department [address] [place] [address] Pharmacokinetic/Renal -Consult 11/23/24 1831 MR#: [id number] Acct: [id number] Name: MICHELLE JULES Rep #:[id number] : 1965 59 From: Hang Sanders [facility] PCP: Dr. Lisseth Peñaloza MD Status:ADM IN Location: [place] [id number]- [id number] Consult Antibiotic Management Pharmacy has been consulted to manage selected antibiotic: Vancomycin Type of Intervention Type of Consult: Follow-up Suspected Infection Suspected Infection: Sepsis Labs Labs: Sodium 140 mmol/L (133-145) 11/23/24 04:32 Potassium 3.8 mmol/L (3.3-5.1) 11/23/24 04:32 Chloride 108 mmol/L (98-108) 11/23/24 04:32 Carbon Dioxide 23.3 mmol/L (21.0-32.0) 11/23/24 04:32 Anion Gap 8 (5-15) 11/23/24 04:32 BUN 8 mg/dL (4-19) 11/23/24 04:32 Creatinine 0.63 mg/dL (0.70-1.20) L 11/23/24 04:32 Est GFR (MDRD) Non-Af 103 (>60) 11/23/24 04:32 BUN/Creatinine Ratio 12.5 RATIO (10-20) 11/23/24 04:32 Glucose 79 mg/dL (70-99) 11/23/24 04:32 Vancomycin Trough 18.3 ug/mL (5.0-15.0) H 11/23/24 17:30 Microbiology Microbiology: Microbiology 11/20/24 15:03 Blood Culture (Wb) - Venous Blood Culture - Final Staphylococcus aureus 11/20/24 14:33 Blood Culture (Wb) - Anticubital Left Bacteria Detection (PCR) - Final Meth. resistant Staph. aureus 11/20/24 14:33 Blood Culture (Wb) - Anticubital Left Blood Culture - Final Meth. resistant Staph. aureus 11/20/24 14:33 Urine Catheter - Catheter Urine Culture - Final Culture exhibits no growth. 11/20/24 05:15 Mucosa - Nasopharyngeal Respiratory Panel (PCR) - Final 11/20/24 14:33 Mucosa - Nose SARS-CoV-2, Influenza & RSV (PCR) - Final Goal Trough Goal Trough: 15-20 mcg/mL Pharmacy Plan for Drug Dosing Pharmacy Plan for Drug Dosing: VANCOMYCIN LEVEL RECEIVED Current Vancomycin Dose: 2000mg q12h (,) Number of Doses Received: x3 of current dose Vancomycin Level: 18.3 (drawn 11/23/24 at 1730) Hours Since Last Dose: 12 hours since last 2000mg dose on 11/23/24 at 0543 Renal Function: SrCr 0.63 Renal Function Trend: SrCr improving (was 0.87 on 11/21/24 and 0.7 on 11/22/24) Lab/Micro: Vancomycin Plan/Comments: resulted trough of 18.3 is within the ordered goal trough range of 15-20. recommend continuing current dose of 2000mg q12h and checking a trough 11/25/24 at 0530 Pending Level: 11/25/24 at 0530 Pharmacy Service will continue to monitor and adjust dosing as required. Follow-Up Labs Follow-Up Labs: Trough: Vancomycin (11/25/24 at 0530) 11/23/24 1832 <Electronically signed by Hang Johnson [facility]> Date _ Hang Powers [facility] Cosigner Signature (if applicable): Date CC: ~ Signed [facility] Work Phone: [phone]) 212-711305-12-2025 Consult note Author Michel [facility] Note Date/Time November 23, 2024 1:16p [facility] Medical Records Department [address] [place] [address] Consultation - Infectious Dx 11/23/24 1311 MR#: [id number] Acct: [id number] Name: MICHELLE JULES Rep #:[id number] : 1965 59 From: Michel olivarez MD PCP: Dr. Lisseth Peñaloza MD Status:ADM IN Location: [place] [id number]- 1 Assessment & Plan Assessment/Plan (1) MRSA bacteremia: PLAN: sepsis due to MRSA bacteremia per pcr, suspected source recent fall with scrape to L elbow. KANDY reportedly showed no veg. Will repeat bcx today. Having point tenderness over L spine. Noncontrast lumbar CT showed only severe degenerative disease, and she reports her ICD is not MRI compatible. Will cont vanc, stop cefepime. If back pain does not improve, may need spine surgery evaland/or CT with contrast. Will follow, thank you (2) Sepsis: (3) Low back pain: HPI Consult Data Date of Consult: 11/23/24 HPI Narrative Reason for Consultation: bacteremia HPI Narrative: MICHELLE JULES, is a 59 F who presented 11/20 with acute onset weakness, fever, lowback pain. No focal weakness. Tripped and fell about 2 weeks prior and scrapped her L elbow. No recent skin infections or procedures. No issues with L chest ICD site. No cough or SOB. No n/v/d. No focal joint pain other than her back. Admitted, now on vanc and cefepime. Mild sore throat s/p KANDY today. Full ROS performed and neg except as noted above. [facility] Medical History MRSA (methicillin resistant staph aureus) culture positive Cardiomyopathy, ischemic Vitamin D deficiency Neuropathy History of placement of internal cardiac defibrillator (09/03/13) GERD (gastroesophageal reflux disease) Anxiety Obesity Type 2 diabetes mellitus with diabetic neuropathy, unspecified Chest pain Heart disease Headache Arthritis Seasonal allergies Nonischemic dilated cardiomyopathy Gout Pulmonary HTN Hyperlipidemia RLS (restless legs syndrome) HTN (hypertension) Home Medications ?Medication ?Instructions ?Recorded ?Last Taken ?Type docusate sodium 100 mg capsule 100 mg PO BID PRN 05/06 Unknown History (Colace) CareFine Pen Needle 30 gauge x #120 ea 05/29/24 Unknow n Rx 5/16 (pen needle, diabetic) insulin syringe-needle U-100 0.5 #90 ea 05/29/24 Unkno wn Rx mL 31 gauge x 5/16 (BD Insulin Syringe Ultra-Fine) sacubitril 24 mg-valsartan 26 mg 1 tab PO BID #60 tabs 06/03/24 Unknown Rx tablet (Entresto) blood sugar diagnostic (OneTouch #100 ea 10/15/24 Unkn own Rx Verio test strips) 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 meter (OneTouch #1 ea 10/15/24 Unknown R x Verio Reflect Meter) 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 meter,continuous #1 ea 10/15/24 Unknown Rx (FreeStyle Lance 3 [place]) 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 sensor (FreeStyle #2 ea 10/15/24 Unknown Rx Lance 3 Plus Sensor device) dulaglutide 1.5 mg/0.5 mL 1.5 mg (0.5 mL) subcut QWEEK #2 mL 10/15/24 Unknown Rx subcutaneous pen injector (Trulicity) insulin lispro 100 unit/mL 30 unit subcut TID 10/19/24 Unknown History subcutaneous pen insulin glargine 100 unit/mL (3 40 unit (0.4 mL) subcu t BID #30 mL 10/21/24 Unknown Rx mL) subcutaneous pen (Lantus Solostar U-100 Insulin) atorvastatin 10 mg tablet (Lipitor) 10 mg PO DAILY cho lesterol #90 tabs 10/22/24 Unknown Rx carvedilol 25 mg tablet 25 mg PO Q12H #180 tabs 10/13 Unknown Rx cetirizine 10 mg capsule 10 mg PO DAILY #90 caps 10/13 Unknown Rx cholecalciferol (vitamin D3) 1,250 1,250 mcg PO QWEEK #12 caps 10/22/24 Unknown Rx mcg (50,000 unit) capsule duloxetine 60 mg capsule,delayed 60 mg PO BID #180 cap s 10/22/24 Unknown Rx release magnesium oxide 400 mg (241.3 mg 400 mg PO BID #180 ta bs 10/22/24 Unknown Rx magnesium) tablet gabapentin 300 mg capsule 300 mg PO DAILY #28 caps Unknown Rx spironolactone 25 mg tablet 25 mg PO DAILY #30 tabs Unknown Rx pantoprazole 40 mg tablet,delayed 40 mg PO BID #180 ta bs 11/19/24 Unknown Rx release (Protonix) ropinirole 0.5 mg tablet 0.5 mg PO QHS #90 tabs 11/19 Unknown Rx Allergy/AdvReac Type Severity Reaction Status Date / Time simvastatin Allergy Severe Myalgia Verified 11/20/24 14:18 Latex, Natural Rubber Allergy Unknown Rash Verified 11/20/24 14:18 metformin Allergy Other Verified 11/20/24 14:18 adhesive tape AdvReac Severe Rash Verified 11/20/24 14:18 Family History Father Heart disease Myocardial infarction CAD (coronary artery disease) Mother CAD (coronary artery disease) Heart disease Cancer breast Grandmother Colon cancer Daughter Breast cancer Surgical History History of left heart catheterization Hx of appendectomy H/O colectomy History of hysteroscopy Social History household members: family and other details: ex mother in law , ex housing: house current occupational status: disabled 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 Smoking Status: Never smoker second hand exposure: No alcohol intake: never substance use type: does not use what type of physical activity do you participate in: none seatbelt use: always do you feel safe at home: Yes Physical Exam Const alert, oriented x3 and no apparent distress General Appearance: cooperative HEENT normocephalic and head/scalp atraumatic Eyes PERRL and EOMs intact bilaterally Neck supple and No nodes Resp normal air movement and clear to auscultation bilaterally Cardio regular rate, regular rhythm and no murmurs GI soft to palpation, non-tender and non-distended Extremity General Extremity: Negative for edema Skin no rashes or lesions noted Skin Narrative: no splinter hemorrhages on hands. Point tenderness at lower L-spine Neuro CN's II-XII intact bilaterally Lab / Micro Data Attestation: I reviewed the patient's lab results. 11/23/24 04:32 11/23/24 04:32 Labs: Laboratory Results - last 24 hr 11/22/24 16:48: POC Glucose 179 H 11/22/24 21:35: POC Glucose 85 11/23/24 04:32: WBC 5.8, RBC 3.59 L, Hgb 10.4 L, Hct 32.7 L, MCV 91.1, MCH 29.0,MCHC 31.8 L, RDW Std Deviation 48.3 H, RDW Coeff of Tatum 14.6, Plt Count 105 L, MPV 10.3, Immature Gran % (Auto) 0.300, Neut % (Auto) 65.1, Lymph % (Auto) 22.9,[place] % (Auto) 8.8, Eos % (Auto) 2.4, Baso % (Auto) 0.5, Absolute Neuts (auto) 3.8, Absolute Lymphs (auto) 1.32, Nucleated RBC % 0, Sodium 140, Potassium 3.8, Chloride 108, Carbon Dioxide 23.3, Anion Gap 8, BUN 8, Creatinine 0.63 L, Estim Creat Clear Calc 135.59, Est GFR (MDRD) Non-Af 103, BUN/Creatinine Ratio 12.5, Glucose 79, Calcium 8.9 11/23/24 08:01: POC Glucose 83 Micro: Microbiology 11/20/24 15:03 Blood Culture (Wb) - Venous Blood Culture - Final Staphylococcus aureus 11/20/24 14:33 Blood Culture (Wb) - Anticubital Left Bacteria Detection (PCR) - Final Meth. resistant Staph. aureus 11/20/24 14:33 Blood Culture (Wb) - Anticubital Left Blood Culture - Final Meth. resistant Staph. aureus 11/20/24 14:33 Urine Catheter - Catheter Urine Culture - Final Culture exhibits no growth. Rhythm Strip Rhythm Strip: A sensed BiV paced Rate: 62 11/23/24 1316 <Electronically signed by Michel Haq MD> Cosigner Signature (if applicable): CC: Dr. Lisseth Peñaloza MD~ Signed [facility] Work Phone: 1(790) 416-215005-12-2025 Progress note Author Kasandra Hinkle [facility] Note Date/Time November 23, 2024 12:53 pm [facility] Medical Records Department [address] [place] [address] Progress Note - Cardiology 11/23/24 0746 MR#: [id number] Acct: [id number] Name: MICHELLE JULES Rep #:[id number] 1 : 1965 59 From: Kasandra Hinkle MD PCP: Dr. Lisseth Peñaloza MD Status:ADM IN Location: [place] [address]- Subjective Subjective Patient resting comfortable in the recumbent position in bed. She denies any fevers or chills in the last 24 hours. She has been up in the room without assistance. She does not complain of some occasional lightheadedness with change of position. Objective Data Vital Signs: Vital Signs Temp Pulse Resp BP Pulse Ox O2 Del Method O2 Flow Rate 96.8 F L 66 15 117/63 96 Room Air 2 11/23/24 04:00 11/23/24 04:00 11/23/24 04:00 11/23/24 04:00 11/23/24 04:00 11/23/24 04:00 11/23/24 01:44 Oxygen Flow Rate (L/min) 2 Oxygen Delivery Method Room Air Weight: 267 lb 6.731 oz Body Mass Index (BMI) 39.6 Intake & Output: Intake and Output for Last 24 Hours 11/21/24 11/22/24 11/23/24 23:59 23:59 23:59 Intake Total 2499.30 / 2749.30 1779.00 / 1779.00 100 / 100 Output Total 1600 / 2058 458 / 458 Balance 899.30 / 691.30 1321.00 / 1321.00 100 / 100 Lab / Micro Data Attestation: I reviewed the patient's lab results. 11/23/24 04:32 11/23/24 04:32 Labs: Laboratory Results - last 24 hr 11/22/24 07:55: POC Glucose 177 H 11/22/24 11:19: POC Glucose 198 H 11/22/24 16:48: POC Glucose 179 H 11/22/24 21:35: POC Glucose 85 11/23/24 04:32: WBC 5.8, RBC 3.59 L, Hgb 10.4 L, Hct 32.7 L, MCV 91.1, MCH 29.0,MCHC 31.8 L, RDW Std Deviation 48.3 H, RDW Coeff of Tatum 14.6, Plt Count 105 L, MPV 10.3, Immature Gran % (Auto) 0.300, Neut % (Auto) 65.1, Lymph % (Auto) 22.9,[place] % (Auto) 8.8, Eos % (Auto) 2.4, Baso % (Auto) 0.5, Absolute Neuts (auto) 3.8, Absolute Lymphs (auto) 1.32, Nucleated RBC % 0, Sodium 140, Potassium 3.8, Chloride 108, Carbon Dioxide 23.3, Anion Gap 8, BUN 8, Creatinine 0.63 L, Estim Creat Clear Calc 135.59, Est GFR (MDRD) Non-Af 103, BUN/Creatinine Ratio 12.5, Glucose 79, Calcium 8.9 Micro: Microbiology 11/20/24 14:33 Blood Culture (Wb) - Anticubital Left Bacteria Detection (PCR) - Final Meth. resistant Staph. aureus 11/20/24 14:33 Blood Culture (Wb) - Anticubital Left Blood Culture - Preliminary Staphylococcus aureus 11/20/24 15:03 Blood Culture (Wb) - Venous Blood Culture - Final Staphylococcus aureus 11/20/24 14:33 Urine Catheter - Catheter Urine Culture - Final Culture exhibits no growth. Rhythm Strip Rhythm Strip: A sensed BiV paced Rate: 62 Cardiology Labs/Tests 11/23/24 04:32: WBC 5.8, RBC 3.59 L, Hgb 10.4 L, Hct 32.7 L, MCV 91.1, MCH 29.0,MCHC 31.8 L, Plt Count 105 L, MPV 10.3, Immature Gran % (Auto) 0.300, Neut % (Auto) 65.1, Lymph % (Auto) 22.9, [place] % (Auto) 8.8, Eos % (Auto) 2.4, Baso % (Auto) 0.5, Absolute Neuts (auto) 3.8, Nucleated RBC % 0, Sodium 140, Potassium 3.8, Chloride 108, Carbon Dioxide 23.3, Anion Gap 8, BUN 8, Creatinine 0.63 L, Est GFR (MDRD) Non-Af 103, BUN/Creatinine Ratio 12.5, Glucose 79, Calcium 8.9 Rhythm: EKG: ECHO: Stress Test: Cardiac Cath: PCI: CT Surgery: Holter monitor: EPS: PPM: CXR: Chest CT Scan: Physical Exam Const alert and oriented x3 HEENT normocephalic Eyes EOMs intact bilaterally Neck Neck Narrative: Thick neck Chest Chest: left pectoral incision Resp normal respiratory effort Auscultation: diminished lung sounds right lower Cardio regular rate Cardio Narrative: Distant heart tones due to body habitus. Rhythm: regular rhythm Heart Sounds: S1 normal and S2 normal; Negative for click, gallop or murmur GI GI Narrative: Obese Extremity no pedal edema Neuro Neuro Narrative: Alert and oriented x 3 Psych mental status grossly normal Assessment & Plan Assessment/Plan (1) Nonischemic cardiomyopathy: PLAN: Patient carries a history of a nonischemic dilated cardiomyopathy. Transthoracic echocardiogram which had poor windows shows an EF of [id number]%. The patient has SCRUBBER SYSTEM ATTENDANT-D device in place. The patient is on excellent guideline directed medical therapy. Recommend continuing current medical therapy as tolerated. Recommend reinstitute spironolactone 25 mg daily when appropriate as far as sepsis treatment. (2) MRSA bacteremia: PLAN: MRSA noted in the blood on 3 blood cultures. There is no obvious site. The patient's transthoracic echo was difficult to see. She is being evaluated for possible transesophageal echo later today. Transesophageal echocardiogram preliminarily shows no obvious evidence of vegetation. Final report to follow. (3) History of placement of internal cardiac defibrillator: PLAN: Patient has SCRUBBER SYSTEM ATTENDANT-D device in place. Her rate is 62 atrial sinus rate whichis tracked by the BiV pacer. PLAN: Plan 1. Continue current antibiotic therapy. No obvious site of intracardiac infection. Charges/Coding Visit Charges Inpatient E&M: 02865 Subs Hosp L2 11/23/24 1253 <Electronically signed by Kasandra Hinkle MD> Cosigner Signature (if applicable): CC: ~ Signed [facility] Work Phone: [phone]) 660-658205-12-2025 Progress note Author Haider Smith [facility] Note Date/Time November 23, 2024 12:17 pm [facility] Medical Records Department [address] [place] [id number] Progress Note - Hospitalist 11/23/24 0726 MR#: [id number] Acct: [id number] Name: MICHELLE JULES Rep #:[id number] 2 : 1965 59 From: Haider Smith DO PCP: Dr. Lisseth Peñaloza MD Status:ADM IN Location: [place] [address] Reason for Visit Reason for Visit: Diagnoses Sepsis, unspecified organism (11/20/24) Methicillin resistant Staphylococcus aureus infection as the cause of diseases classified elsewhere (11/20/24) Type 2 diabetes mellitus without complications (11/20/24) Other cardiomyopathies (11/20/24) Low back pain, unspecified (11/20/24) Fever, unspecified (11/20/24) Shock, unspecified (11/20/24) Bacteremia (11/20/24) Presence of automatic (implantable) cardiac defibrillator (11/20/24) Subjective Subjective Had headache last night. Objective Data Objective Data Vital Signs: Vital Signs Temp Pulse Resp BP Pulse Ox O2 Del Method O2 Flow Rate 36.0 C L 66 15 117/63 96 Room Air 2 11/23/24 04:00 11/23/24 04:00 11/23/24 04:00 11/23/24 04:00 11/23/24 04:00 11/23/24 04:00 11/23/24 01:44 Oxygen Flow Rate (L/min) 2 Oxygen Delivery Method Room Air Weight: 121.3 kg Body Mass Index (BMI) 39.6 Intake & Output: Intake and Output for Last 24 Hours 11/21/24 11/22/24 11/23/24 23:59 23:59 23:59 Intake Total 2499.30 / 2749.30 1779.00 / 1779.00 100 / 100 Output Total 1600 / 8 458 / 458 Balance 899.30 / 691.30 1321.00 / 1321.00 100 / 100 Lab / Micro Data 11/23/24 04:32 11/23/24 04:32 Labs: Laboratory Results - last 24 hr 11/22/24 07:55: POC Glucose 177 H 11/22/24 11:19: POC Glucose 198 H 11/22/24 16:48: POC Glucose 179 H 11/22/24 21:35: POC Glucose 85 11/23/24 04:32: WBC 5.8, RBC 3.59 L, Hgb 10.4 L, Hct 32.7 L, MCV 91.1, MCH 29.0,MCHC 31.8 L, RDW Std Deviation 48.3 H, RDW Coeff of Tatum 14.6, Plt Count 105 L, MPV 10.3, Immature Gran % (Auto) 0.300, Neut % (Auto) 65.1, Lymph % (Auto) 22.9,[place] % (Auto) 8.8, Eos % (Auto) 2.4, Baso % (Auto) 0.5, Absolute Neuts (auto) 3.8, Absolute Lymphs (auto) 1.32, Nucleated RBC % 0, Sodium 140, Potassium 3.8, Chloride 108, Carbon Dioxide 23.3, Anion Gap 8, BUN 8, Creatinine 0.63 L, Estim Creat Clear Calc 135.59, Est GFR (MDRD) Non-Af 103, BUN/Creatinine Ratio 12.5, Glucose 79, Calcium 8.9 Micro: Microbiology 11/20/24 14:33 Blood Culture (Wb) - Anticubital Left Bacteria Detection (PCR) - Final Meth. resistant Staph. aureus 11/20/24 14:33 Blood Culture (Wb) - Anticubital Left Blood Culture - Preliminary Staphylococcus aureus 11/20/24 15:03 Blood Culture (Wb) - Venous Blood Culture - Final Staphylococcus aureus 11/20/24 14:33 Urine Catheter - Catheter Urine Culture - Final Culture exhibits no growth. 11/20/24 05:15 Mucosa - Nasopharyngeal Respiratory Panel (PCR) - Final 11/20/24 14:33 Mucosa - Nose SARS-CoV-2, Influenza & RSV (PCR) - Final Physical Exam Const alert and no apparent distress HEENT head/scalp atraumatic and moist oral mucous membranes Resp normal respiratory effort, no retractions, no use of accessory muscles and clearto auscultation bilaterally Cardio regular rate, regular rhythm, S1 normal heart sound and S2 normal heart sound GI normal to inspection, nondistended, normoactive bowel sounds, soft to palpation and non-tender Assessment & Plan Assessment/Plan (1) Shock: PLAN: Likely septic given bacteremia. pt did not receive 30 cc/kg of IVF given h/o ischemic cardiomyopathy. Norepi gttweaned off. POA. Cefepime and vancomycin (2) Bacteremia: PLAN: Unclear source. Blood culture 11/20/24 showing GPC in clusters. PCR + MRSA. Repeat blood cultures on 11/21 pending. TTE on 11/21 showed an EF 40%. Cards consult for KANDY. Blood cultures 11/21 pending Continue cefepime and vanc for now. Likely the cefepime can be dropped, but willawait on the final blood cultures from 11/20 before discontinuation. (3) Low back pain: PLAN: status post fall. Lumbar CT showed severe DDD at L5-S1. paraspinal musculature. Lidoderm patch. supportive mgmt. PLAN: Plan Chronic conditions: * Ischemic cardiomyopathy: EF 40% resume carvedilol and sacubitril (initially held given shock) * obesity class III: complicates care and recovery * DM2: Glargine and SSI. a1c 10.7 09/07/24 VTE prophylaxis: LMWH Charges/Coding Visit Charges Inpatient E&M: 05849 Subs Hosp L2 11/23/24 1218 <Electronically signed by Haider Smith DO> Cosigner Signature (if applicable): CC: ~ Signed [facility] Work Phone: [phone]) 319-165405-11-2025 Progress note Author Haider Smith [facility] Note Date/Time November 22, 2024 1:36p m [facility] Medical Records Department [address] [place] [address] Progress Note - Hospitalist 11/22/24 08 MR#: [id number] Acct: [id number] Name: MICHELLE JULES Rep #:[id number] 1 : 1965 59 From: Haider Smith DO PCP: Dr. Lisseth Peñaloza MD Status:ADM IN Location: [place] [address] Reason for Visit Reason for Visit: Diagnoses Sepsis, unspecified organism (11/20/24) Low back pain, unspecified (11/20/24) Shock, unspecified (11/20/24) Subjective Subjective Feels well. No new complaints. Still with back. Objective Data Objective Data Vital Signs: Vital Signs Temp Pulse Resp BP Pulse Ox O2 Del Method O2 Flow Rate 36.2 C L 77 15 135/71 H 97 Nasal Cannula 3 11/22/24 05:00 11/22/24 07:00 11/22/24 07:00 11/22/24 07:00 11/22/24 07:00 11/22/24 07:00 11/22/24 07:00 Oxygen Flow Rate (L/min) 3 Oxygen Delivery Method Nasal Cannula Weight: 120.202 kg Body Mass Index (BMI) 39.2 Intake & Output: Intake and Output for Last 24 Hours 11/20/24 11/21/24 11/22/24 23:59 23:59 23:59 Intake Total 4276.98 / 4281.68 2499.30 / 2749.30 890 / 890 Output Total 350 / 350 1600 / 2058 458 / 458 Balance 3926.98 / 3931.68 899.30 / 691.30 432 / 432 Lab / Micro Data 11/22/24 04:40 11/22/24 04:40 Labs: Laboratory Results - last 24 hr 11/21/24 11:19: POC Glucose 300 H 11/21/24 16:20: POC Glucose 314 H 11/21/24 21:27: POC Glucose 252 H 11/22/24 04:40: WBC 6.2, RBC 3.57 L, Hgb 10.6 L, Hct 32.4 L, MCV 90.8, MCH 29.7,MCHC 32.7, RDW Std Deviation 48.0 H, RDW Coeff of Tatum 14.3, Plt Count 102 L, MPV10.0, Immature Gran % (Auto) 0.800, Neut % (Auto) 67.4, Lymph % (Auto) 21.6, [place] % (Auto) 9.1, Eos % (Auto) 0.6, Baso % (Auto) 0.5, Absolute Neuts (auto) 4.2, Absolute Lymphs (auto) 1.35, Nucleated RBC % 0, Sodium 138, Potassium 3.6, Chloride 108, Carbon Dioxide 21.5, Anion Gap 8, BUN 9, Creatinine 0.70, Estim Creat Clear Calc 121.42, Est GFR (MDRD) Non-Af 100, BUN/Creatinine Ratio 13.0, Glucose 184 H, Calcium 7.8, Vancomycin Trough 10.4 Micro: Microbiology 11/20/24 05:15 Mucosa - Nasopharyngeal Respiratory Panel (PCR) - Final 11/20/24 15:03 Blood Culture (Wb) - Venous Blood Culture - Preliminary 11/20/24 14:33 Blood Culture (Wb) - Anticubital Left Bacteria Detection (PCR) - Final Meth. resistant Staph. aureus 11/20/24 14:33 Blood Culture (Wb) - Anticubital Left Blood Culture - Preliminary 11/20/24 14:33 Mucosa - Nose SARS-CoV-2, Influenza & RSV (PCR) - Final Radiography Diagnostic Testing: Radiology Impression Echocardiogram 11/20/24 21:31 Interpretation Summary The study was technically difficult. Moderately reduced global LV systolic function. Estimated LVEF 40%. Stage I diastolic dysfunction. The left atrium is mildly enlarged. Trivial pericardial effusion. Ordering Physician: Jesus Varela Referring Physician: Lisseth Peñaloza Performed By: Nano Leung RDCS Physical Exam Narrative reproducible lower left parasternal back pain. Const alert and no apparent distress HEENT head/scalp atraumatic and moist oral mucous membranes Resp normal respiratory effort, no retractions, no use of accessory muscles and clearto auscultation bilaterally Cardio regular rate, regular rhythm, S1 normal heart sound and S2 normal heart sound GI normal to inspection, nondistended, normoactive bowel sounds, soft to palpation,non-tender and non-distended Neuro Sensorium / Orientation: awake and alert Assessment & Plan Assessment/Plan (1) Shock: PLAN: Likely septic given bacteremia. pt did not receive 30 cc/kg of IVF given h/o ischemic cardiomyopathy. Norepi gttweaned off. POA. Cefepime and vancomycin (2) Bacteremia: PLAN: Unclear source. Blood culture 11/20/24 showing GPC in clusters. PCR + MRSA. Repeat blood cultures on 11/21 pending. TTE on 11/21 showed an EF 40%. Cards consult for KANDY. Continue cefepime and vanc for now. Likely the cefepime can be dropped, but willawait on the final blood cultures from 11/20 before discontinuation. (3) Low back pain: PLAN: status post fall. Lumbar CT showed severe DDD at L5-S1. paraspinal musculature. Lidoderm patch. supportive mgmt. PLAN: Plan Chronic conditions: * Ischemic cardiomyopathy: EF 40% resume carvedilol and sacubitril (initially held given shock) * obesity class III: complicates care and recovery * DM2: Glargine and SSI. a1c 10.7 09/07/24 VTE prophylaxis: LMWH Transfer out of ICU. Charges/Coding Visit Charges Inpatient E&M: 82531 Subs Hosp L2 11/22/24 1336 <Electronically signed by Haider Smith DO> Cosigner Signature (if applicable): CC: ~ Signed [facility] Work Phone: [phone] Consult note Author Radha Dumont [facility] Note Date/Time November 22, 2024 12:43 pm [facility] Medical Records Department [address] [place] [address] Consultation - Cardiology 11/22/24 1236 MR#: [id number] Acct: [id number] Name: MICHELLE JULES Rep #:[id number] : 1965 59 From: Radha Dumont MD PCP: Dr. Lisseth Peñaloza MD Status:ADM IN Location: [place] [id number] Assessment & Plan Assessment/Plan (1) MRSA bacteremia: PLAN: Patient blood culture is reported as positive for MRSA. No source identified so far. She has a SCRUBBER SYSTEM ATTENDANT-D device. I would recommend checking a KANDY toexclude any endocarditis. (2) History of placement of internal cardiac defibrillator: PLAN: See #1 above. (3) Nonischemic cardiomyopathy: PLAN: Patient's Entresto and carvedilol were discontinued in view of her septic shock. She has since recovered. Recommend restarting both. (4) Acute febrile illness: PLAN: See #1 above. On antibiotics. (5) Diabetes mellitus: PLAN: As per internal medicine. HPI Consult Data Date of Consult: 11/22/24 HPI Narrative Reason for Consultation: Cardiomyopathy HPI Narrative: This lady has past medical history significant for nonischemic cardiomyopathy status post SCRUBBER SYSTEM ATTENDANT?D, diabetes mellitus, morbid obesity and hypertension. The patient presented to the hospital with complaints of lower back pain. Accordingto her, she fell and hurt her back few days ago. Patient was noted to be febrile in the emergency room. Lactic acid was elevated. Admitted with a diagnosis of sepsis. During the course of her hospitalization, she went into septic shock as well and required vasopressor support. Started on antibiotics. Her hemodynamics have since improved and she is off vasopressor support presently. Her LVEF on 2D echocardiogram was noted to be 40% which is the same as reported in May of last year. She has been growing MRSA in her blood cultures. Patient denies any chest pains. Denies any shortness of breath. Denies orthopnea or PND. No ankle edema. [facility] Medical History Cardiomyopathy, ischemic Vitamin D deficiency Neuropathy History of placement of internal cardiac defibrillator (09/03/13) GERD (gastroesophageal reflux disease) Anxiety Obesity Type 2 diabetes mellitus with diabetic neuropathy, unspecified Chest pain Heart disease Headache Arthritis Seasonal allergies Nonischemic dilated cardiomyopathy Gout Pulmonary HTN Hyperlipidemia RLS (restless legs syndrome) HTN (hypertension) Home Medications ?Medication ?Instructions ?Recorded ?Last Taken ?Type docusate sodium 100 mg capsule 100 mg PO BID PRN 05/06 Unknown History (Colace) CareFine Pen Needle 30 gauge x #120 ea 05/29/24 Unknow n Rx 11/27 (pen needle, diabetic) insulin syringe-needle U-100 0.5 #90 ea 05/29/24 Unkno wn Rx mL 31 gauge x 5/16 (BD Insulin Syringe Ultra-Fine) sacubitril 24 mg-valsartan 26 mg 1 tab PO BID #60 tabs 06/03/24 Unknown Rx tablet (Entresto) blood sugar diagnostic (OneTouch #100 ea 10/15/24 Unkn own Rx Verio test strips) 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 meter (OneTouch #1 ea 10/15/24 Unknown R x Verio Reflect Meter) 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 meter,continuous #1 ea 10/15/24 Unknown Rx (FreeStyle Lance 3 [place]) 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 sensor (FreeStyle #2 ea 10/15/24 Unknown Rx Lance 3 Plus Sensor device) dulaglutide 1.5 mg/0.5 mL 1.5 mg (0.5 mL) subcut QWEEK #2 mL 10/15/24 Unknown Rx subcutaneous pen injector (Trulicity) insulin lispro 100 unit/mL 30 unit subcut TID 10/19/24 Unknown History subcutaneous pen insulin glargine 100 unit/mL (3 40 unit (0.4 mL) subcu t BID #30 mL 10/21/24 Unknown Rx mL) subcutaneous pen (Lantus Solostar U-100 Insulin) atorvastatin 10 mg tablet (Lipitor) 10 mg PO DAILY cho lesterol #90 tabs 10/22/24 Unknown Rx carvedilol 25 mg tablet 25 mg PO Q12H #180 tabs 10/13 Unknown Rx cetirizine 10 mg capsule 10 mg PO DAILY #90 caps 10/13 Unknown Rx cholecalciferol (vitamin D3) 1,250 1,250 mcg PO QWEEK #12 caps 10/22/24 Unknown Rx mcg (50,000 unit) capsule duloxetine 60 mg capsule,delayed 60 mg PO BID #180 cap s 10/22/24 Unknown Rx release magnesium oxide 400 mg (241.3 mg 400 mg PO BID #180 ta bs 10/22/24 Unknown Rx magnesium) tablet gabapentin 300 mg capsule 300 mg PO DAILY #28 caps Unknown Rx spironolactone 25 mg tablet 25 mg PO DAILY #30 tabs Unknown Rx pantoprazole 40 mg tablet,delayed 40 mg PO BID #180 ta bs 11/19/24 Unknown Rx release (Protonix) ropinirole 0.5 mg tablet 0.5 mg PO QHS #90 tabs 11/19 Unknown Rx Allergy/AdvReac Type Severity Reaction Status Date / Time simvastatin Allergy Severe Myalgia Verified 11/20/24 14:18 Latex, Natural Rubber Allergy Unknown Rash Verified 11/20/24 14:18 metformin Allergy Other Verified 11/20/24 14:18 adhesive tape AdvReac Severe Rash Verified 11/20/24 14:18 Family History Father Heart disease Myocardial infarction CAD (coronary artery disease) Mother CAD (coronary artery disease) Heart disease Cancer breast Grandmother Colon cancer Daughter Breast cancer Surgical History History of left heart catheterization Hx of appendectomy H/O colectomy History of hysteroscopy Social History household members: family and other details: ex mother in law , ex housing: house current occupational status: disabled 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 Heart sounds 1 and 2 noted. No murmurs or rubs. Chest clear to auscultation bilaterally. Alert oriented x 3. No ankle edema. Risk Stratification Risk Stratification Applicable: No Objective Data Vital Signs: Vital Signs Temp Pulse Resp BP Pulse Ox O2 Del Method O2 Flow Rate 97.7 F L 90 19 H 134/92 H 96 Room Air 2 11/22/24 11:00 11/22/24 11:00 11/22/24 11:00 11/22/24 11:00 11/22/24 11:00 11/22/24 11:00 11/22/24 10:00 Oxygen Flow Rate (L/min) 2 Oxygen Delivery Method Room Air Weight: 265 lb 0.001 oz Body Mass Index (BMI) 39.2 Intake & Output: Intake and Output for Last 24 Hours 11/20/24 11/21/24 11/22/24 23:59 23:59 23:59 Intake Total 4276.98 / 4281.68 2499.30 / 2749.30 890 / 890 Output Total 350 / 350 1600 / 2058 458 / 458 Balance 3926.98 / 3931.68 899.30 / 691.30 432 / 432 Lab / Micro Data 11/22/24 04:40 11/22/24 04:40 Labs: Laboratory Results - last 24 hr 11/21/24 16:20: POC Glucose 314 H 11/21/24 21:27: POC Glucose 252 H 11/22/24 04:40: WBC 6.2, RBC 3.57 L, Hgb 10.6 L, Hct 32.4 L, MCV 90.8, MCH 29.7,MCHC 32.7, RDW Std Deviation 48.0 H, RDW Coeff of Tatum 14.3, Plt Count 102 L, MPV10.0, Immature Gran % (Auto) 0.800, Neut % (Auto) 67.4, Lymph % (Auto) 21.6, [place] % (Auto) 9.1, Eos % (Auto) 0.6, Baso % (Auto) 0.5, Absolute Neuts (auto) 4.2, Absolute Lymphs (auto) 1.35, Nucleated RBC % 0, Sodium 138, Potassium 3.6, Chloride 108, Carbon Dioxide 21.5, Anion Gap 8, BUN 9, Creatinine 0.70, Estim Creat Clear Calc 121.42, Est GFR (MDRD) Non-Af 100, BUN/Creatinine Ratio 13.0, Glucose 184 H, Calcium 7.8, Vancomycin Trough 10.4 11/22/24 07:55: POC Glucose 177 H 11/22/24 11:19: POC Glucose 198 H Micro: Microbiology 11/20/24 14:33 Blood Culture (Wb) - Anticubital Left Bacteria Detection (PCR) - Final Meth. resistant Staph. aureus 11/20/24 14:33 Blood Culture (Wb) - Anticubital Left Blood Culture - Preliminary Staphylococcus aureus 11/20/24 15:03 Blood Culture (Wb) - Venous Blood Culture - Final Staphylococcus aureus 11/20/24 14:33 Urine Catheter - Catheter Urine Culture - Final Culture exhibits no growth. 11/20/24 05:15 Mucosa - Nasopharyngeal Respiratory Panel (PCR) - Final Cardiology Labs/Tests 11/22/24 04:40: WBC 6.2, RBC 3.57 L, Hgb 10.6 L, Hct 32.4 L, MCV 90.8, MCH 29.7,MCHC 32.7, Plt Count 102 L, MPV 10.0, Immature Gran % (Auto) 0.800, Neut % (Auto) 67.4, Lymph % (Auto) 21.6, [place] % (Auto) 9.1, Eos % (Auto) 0.6, Baso % (Auto) 0.5, Absolute Neuts (auto) 4.2, Nucleated RBC % 0, Sodium 138, Potassium 3.6, Chloride 108, Carbon Dioxide 21.5, Anion Gap 8, BUN 9, Creatinine 0.70, EstGFR (MDRD) Non-Af 100, BUN/Creatinine Ratio 13.0, Glucose 184 H, Calcium 7.8 Rhythm: EKG: ECHO: Stress Test: Cardiac Cath: PCI: CT Surgery: Holter monitor: EPS: PPM: CXR: Chest CT Scan: Radiography Diagnostic Testing: Radiology Impression Echocardiogram 11/20/24 21:31 Interpretation Summary The study was technically difficult. Moderately reduced global LV systolic function. Estimated LVEF 40%. Stage I diastolic dysfunction. The left atrium is mildly enlarged. Trivial pericardial effusion. Ordering Physician: Jesus Varela Referring Physician: Lisseth Peñaloza Performed By: Nano Leung RDCS 11/22/24 1243 <Electronically signed by Radha Dumont MD> Cosigner Signature (if applicable): CC: Dr. Lisseth Peñaloza MD~ Signed [facility] Work Phone: [phone]) [phone] Progress note Author Pedro Luis Lal [facility] Note Date/Time November 22, 2024 9:36a m [facility] Medical Records Department [address] [place] [address] Progress Note - Clinic Supervisor 11/22/24 0932 MR#: [id number] Acct: [id number] Name: MICHELLE JULES Rep #:[id number] : 1965 59 From: Pedro Luis Lal MD PCP: Dr. Lisseth Peñaloza MD Status:ADM IN Location: ICU ICU01-1 Objective Data Objective Data Vital Signs: Vital Signs Last response 3 Temperature 36.2 C L 11/22/24 05:00 Temperature Source Temporal 11/22/24 05:00 Pulse Rate 77 11/22/24 07:00 Pulse Strength Normal (2+) 11/21/24 21:50 Respiratory Rate 15 11/22/24 07:00 Respiratory Effort Normal, Non-Labored 11/20/24 14:18 Respiratory Pattern Normal 11/20/24 14:18 Blood Pressure 135/71 H 11/22/24 07:00 Blood Pressure Mean 92 11/22/24 07:00 Blood Pressure Source Monitor 11/22/24 07:00 Blood Pressure Position Semi-Fowlers 11/22/24 07:00 Blood Pressure Location Left Forearm 11/22/24 07:00 Pulse Ox 97 11/22/24 07:00 Oxygen Delivery Method Nasal Cannula 11/22/24 07:00 Oxygen Flow Rate (L/min) 3 11/22/24 07:00 I&O: I&O Last 24 Hours 3 11/21/24 11/21/24 11/22/24 11:59 23:59 11:59 Intake Total 1175.30 / 2749.30 1324 / 2749.30 890 / 890 Output Total 700 / 8 900 / 2058 458 / 458 Balance 475.30 / 691.30 424 / 691.30 432 / 432 I&O: Total Stay 3 11/20/24 14:12 thru 11/22/24 07:52 Intake Total 7666.28 Output Total 2408 Balance 5258.28 Current Meds Ordered / Administered: Current meds ordered / Administered 3 Generic Name Dose Route Start Last Admin Trade Name Yoandyq PRN Reason Stop Dose Admin Acetaminophen 650 mg 11/20/24 21:00 11/22/24 09:24 Acetaminophen 325 Mg Tablet PO 650 mg Q6H PRN PRN Administration Pain 1-10 Or Fever >100.7 Albuterol Sulfate 2.5 mg 11/20/24 19:29 Albuterol 2.5 Mg/3 Ml Vial.Neb. INHALATION Q2H PRN PRN SOB &/OR WHEEZING Atorvastatin Calcium 10 mg 11/21/24 10:00 11/22/24 09:26 Atorvastatin Calcium 10 Mg Tablet PO 10 mg DAILY SARAH Administration Duloxetine HCl 60 mg 11/20/24 22:00 11/22/24 09:26 Duloxetine Hcl 60 Mg Capsule PO 60 mg BID SARAH Administration Enoxaparin Sodium 40 mg 11/20/24 22:00 11/22/24 09:26 Enoxaparin 40 Mg/0.4 Ml Syringe SC 40 mg BID SARAH Administration Gabapentin 300 mg 11/21/24 10:00 11/22/24 09:24 Gabapentin 300 Mg Capsule PO 300 mg DAILY SARAH Administration Glucagon 1 mg 11/20/24 19:29 Glucagon 1 Mg/Ml Syringe IM X1 PRN HYPOGLYCEMIA Protocol Dextrose 250 mls @ 0 mls/hr 11/20/24 19:29 Dextrose 10%-Water IV .Q0M PRN HYPOGLYCEMIA Protocol As Directed Vancomycin IV-PHARMACY TO DOSE 500 mls @ 250 mls/hr 11/20/24 19:29 1 each/ Sodium Chloride IV X1 PRN Rx to Dose Protocol Cefepime HCl 2 gm/ Sodium 100 mls @ 200 mls/hr 11/20/24 22:00 11/22/24 06:37 Chloride IV Infused Q8 SARAH Infusion Sodium Chloride 250 mls @ 15 mls/hr 11/20/24 19:30 11/21/24 21:02 IV 0 mls/hr .[id number] PRN Infusion Saline Flush Sodium Chloride 250 mls @ 15 mls/hr 11/20/24 19:30 IV .[id number] PRN Additional IVPB Infusion Norepinephrine Bitartrate 8 mg 250 mls @ 9.375 mls/hr 11/20/24 20:20 11/23/2503:28 / Sodium Chloride CONT INF Not Given .[id number] SARAH Protocol 5 MCG/MIN Vancomycin HCl 2,000 mg/ 540 mls @ 250 mls/hr 11/22/24 06:00 11/22/24 07:52 Sodium Chloride IV Infused Q12H SARAH Infusion Insulin Glargine 20 unit 11/20/24 22:00 11/22/24 08:00 Insulin Glargine-Yfgn 100 Unit/Ml Pen SC 20 unit BID SARAH Administration Insulin Human Lispro 0 unit 11/20/24 22:00 11/22/24 07:59 Insulin Lispro 100 Unit/Ml Insuln.Pen SC 2 u ACHS SARAH Administration Protocol Lidocaine 1 patch 11/21/24 10:00 11/22/24 09:25 Lidocaine 5% Patch TOPICAL 1 patch DAILY [facility] Administration Protocol Loratadine 10 mg 11/21/24 10:00 11/22/24 09:27 Loratadine 10 Mg Tablet PO 10 mg DAILY SARAH Administration Melatonin 10 mg 11/20/24 19:29 Melatonin 3 Mg Tablet PO QHS PRN PRN INSOMNIA Morphine Sulfate 2 - 4 mg 11/20/24 19:29 11/22/24 00:29 Morphine 2 Mg/Ml Syringe IV 2 mg Q3H PRN PRN Administration Pain Score 6-10 Ondansetron HCl 4 mg 11/20/24 19:29 11/22/24 09:12 Ondansetron 4 Mg/2 Ml Vial IV 4 mg Q8H PRN PRN Administration NAUSEA/VOMITING Oxycodone HCl 5 mg 11/20/24 19:29 11/21/24 20:15 Oxycodone 5 Mg Tablet PO 5 mg Q4H PRN PRN Administration Pain Score 4-10 Pantoprazole Sodium 40 mg 11/20/24 22:00 11/22/24 09:26 Pantoprazole Sodium 40 Mg Tablet PO 40 mg BID SARAH Administration Pramipexole Dihydrochloride 0.25 mg 11/20/24 22:00 11/21/24 21:23 Pramipexole Di-Hcl 0.25 Mg Tablet PO 0.25 mg QHS [facility] Administration Senna/Docusate Sodium 2 tablet 11/20/24 19:29 Senna/Docusate Sodium 1 Tablet PO BID PRN PRN Constipation Sodium Chloride 10 - 40 ml 11/20/24 19:30 11/22/24 09:13 0.9% Saline Lock 10 Ml Syringe IV 10 ml UD PRN Administration SALINE FLUSH Vancomycin Protocol 1 lab 11/23/24 16:30 Vancomycin Trough/Random Due MC 11/23/24 18:30 DAILY [facility] Lab / Micro Data 11/22/24 04:40 11/22/24 04:40 Labs: Laboratory Results - last 24 hr 11/21/24 11:19: POC Glucose 300 H 11/21/24 16:20: POC Glucose 314 H 11/21/24 21:27: POC Glucose 252 H 11/22/24 04:40: WBC 6.2, RBC 3.57 L, Hgb 10.6 L, Hct 32.4 L, MCV 90.8, MCH 29.7,MCHC 32.7, RDW Std Deviation 48.0 H, RDW Coeff of Tatum 14.3, Plt Count 102 L, MPV10.0, Immature Gran % (Auto) 0.800, Neut % (Auto) 67.4, Lymph % (Auto) 21.6, [place] % (Auto) 9.1, Eos % (Auto) 0.6, Baso % (Auto) 0.5, Absolute Neuts (auto) 4.2, Absolute Lymphs (auto) 1.35, Nucleated RBC % 0, Sodium 138, Potassium 3.6, Chloride 108, Carbon Dioxide 21.5, Anion Gap 8, BUN 9, Creatinine 0.70, Estim Creat Clear Calc 121.42, Est GFR (MDRD) Non-Af 100, BUN/Creatinine Ratio 13.0, Glucose 184 H, Calcium 7.8, Vancomycin Trough 10.4 11/22/24 07:55: POC Glucose 177 H Micro: Microbiology 11/20/24 14:33 Urine Catheter - Catheter Urine Culture - Final Culture exhibits no growth. 11/20/24 05:15 Mucosa - Nasopharyngeal Respiratory Panel (PCR) - Final 11/20/24 15:03 Blood Culture (Wb) - Venous Blood Culture - Preliminary 11/20/24 14:33 Blood Culture (Wb) - Anticubital Left Bacteria Detection (PCR) - Final Meth. resistant Staph. aureus 11/20/24 14:33 Blood Culture (Wb) - Anticubital Left Blood Culture - Preliminary Imaging Radiology Impression Echocardiogram 11/20/24 21:31 Interpretation Summary The study was technically difficult. Moderately reduced global LV systolic function. Estimated LVEF 40%. Stage I diastolic dysfunction. The left atrium is mildly enlarged. Trivial pericardial effusion. Ordering Physician: Jesus Varela Referring Physician: Lisseth Peñaloza Performed By: Nano Leung RDCS Assessment and Plan . Assessment and plan: 1. Septic Shock: in setting of known HF. Procal elevated. Cultures:+. s/p sepsisbolus. Now off pressors > 24 hours. 2. MRSA BSI: source not clear. Echo read w/ no mention of vegetations on valvesand leads. May need tagged WBC study. Continue Vanc and cefepime. 3. Back pain: new. s/p fall. No hx prior. Noted degenerative changes in location. If persists, may need MRI 4. Hyponatremia: Hypovolemic. Improved with isotonic IVFs. 5. FEN: Oral diet 6. CHF: appears compensated. Hold diuretics as just came off pressors. Can consider re-starting soon. 7. Hypoxemic Resp Failure: On 2L. Satting well. Wean FIO2 as tolerated. 8. PX: lovenox Pt stable. Will sign off. Pedro Luis Lal MD The entirety of this encounter was done via Telemedicine Physical Exam Narrative awake, NAD pupils: = o/p:clear CV: RRR, no clear murmurs Chest: CTA B Abd :soft, NT, +bs Ext: no c/e/c, no areas of cellulitis Neuro: 5/5 strength in upper extremities Subjective Subjective no events. Did not sleep well 2/2 back pain 11/22/24 0936 <Electronically signed by Pedro Luis Lal MD> Cosigner Signature (if applicable): CC: ~ Signed [facility] Work Phone: [phone] Consult note Author Haider Case [facility] Note Date/Time November 22, 2024 5:41a m [facility] Medical Records Department [address] [place] [address] Pharmacokinetic/Renal -Consult 11/22/24 0539 MR#: [id number] Acct: [id number] Name: MICHELLE JULES Rep #:[id number] : 1965 59 From: Haider Case PCP: Dr. Lisseth Peñaloza MD Status:ADM IN Y Location: ICU ICU01-1 Consult Antibiotic Management Pharmacy has been consulted to manage selected antibiotic: Vancomycin Type of Intervention Type of Consult: Follow-up Suspected Infection Suspected Infection: Sepsis Labs Labs: Sodium 138 mmol/L (133-145) 11/22/24 04:40 Potassium 3.6 mmol/L (3.3-5.1) 11/22/24 04:40 Chloride 108 mmol/L (98-108) 11/22/24 04:40 Carbon Dioxide 21.5 mmol/L (21.0-32.0) 11/22/24 04:40 Anion Gap 8 (5-15) 11/22/24 04:40 BUN 9 mg/dL (4-19) 11/22/24 04:40 Creatinine 0.70 mg/dL (0.70-1.20) 11/22/24 04:40 Est GFR (MDRD) Non-Af 100 (>60) 11/22/24 04:40 BUN/Creatinine Ratio 13.0 RATIO (10-20) 11/22/24 04:40 Glucose 184 mg/dL (70-99) H 11/22/24 04:40 Vancomycin Trough 10.4 ug/mL (5.0-15.0) 11/22/24 04:40 Microbiology Microbiology: Microbiology 11/20/24 05:15 Mucosa - Nasopharyngeal Respiratory Panel (PCR) - Final 11/20/24 15:03 Blood Culture (Wb) - Venous Blood Culture - Preliminary 11/20/24 14:33 Blood Culture (Wb) - Anticubital Left Bacteria Detection (PCR) - Final Meth. resistant Staph. aureus 11/20/24 14:33 Blood Culture (Wb) - Anticubital Left Blood Culture - Preliminary 11/20/24 14:33 Mucosa - Nose SARS-CoV-2, Influenza & RSV (PCR) - Final Dosing Weight Weight used for dosin kg Estimated Creatinine Clearance Estimated Creatinine Clearance: 121 Goal Trough Goal Trough: 15-20 mcg/mL Pharmacy Plan for Drug Dosing Pharmacy Plan for Drug Dosing: Vancomycin trough level of 10.4, drawn 12.3hrs post-dose, was below the target range of 15-20. Will increase dose to 2000mg q12h, and will draw another trough prior to fourth dose of the new regimen. Pharmacy Service will continue to monitor and adjust dosing as required. Follow-Up Labs Follow-Up Labs: Trough: Vancomycin Date/Time Labs Ordered Labs to be done on [date and time ordered]: 11/23/24 @1730 11/22/24 0541 <Electronically signed by Haider burrell> Date _ Haider Quiles Signature (if applicable): Date CC: ~ Signed [facility] Work Phone: [phone]) 429-326305-10-2025 Progress note Author Pedro Luis Lal [facility] Note Date/Time November 21, 2024 11:46 am [facility] Medical Records Department [address] [place] [address] Progress Note - Clinic Supervisor 11/21/24 1141 MR#: [id number] Acct: [id number] Name: MICHELLE JULES Rep #:[id number] : 1965 59 From: Pedro Luis Lal MD PCP: Dr. Lisseth Peñaloza MD Status:ADM IN Location: ICU ICU01-1 Objective Data Objective Data Vital Signs: Vital Signs Last response 3 Temperature 36.3 C L 11/21/24 04:00 Temperature Source Temporal 11/21/24 04:00 Pulse Rate 86 11/21/24 07:45 Respiratory Rate 18 11/21/24 07:45 Respiratory Effort Normal, Non-Labored 11/20/24 14:18 Respiratory Pattern Normal 11/20/24 14:18 Blood Pressure 101/75 11/21/24 07:45 Blood Pressure Mean 83 11/21/24 07:45 Blood Pressure Source Monitor 11/21/24 06:00 Blood Pressure Position Semi-Fowlers 11/21/24 06:00 Blood Pressure Location Left Forearm 11/21/24 06:00 Pulse Ox 95 11/21/24 10:09 Oxygen Delivery Method Nasal Cannula 11/21/24 06:00 Oxygen Flow Rate (L/min) 3 11/21/24 10:09 I&O: I&O Last 24 Hours 3 11/20/24 11/20/24 11/21/24 11:59 23:59 11:59 Intake Total 4276.98 / 4281.68 995.30 / 995.30 Output Total 350 / 350 700 / 700 Balance 3926.98 / 3931.68 295.30 / 295.30 I&O: Total Stay 3 11/20/24 14:12 thru 11/21/24 10:22 Intake Total 5272.28 Output Total 1050 Balance 4222.28 Current Meds Ordered / Administered: Current meds ordered / Administered 3 Generic Name Dose Route Start Last Admin Trade Name Freq PRN Reason Stop Dose Admin Acetaminophen 650 mg 11/20/24 21:00 11/21/24 10:41 Acetaminophen 325 Mg Tablet PO 650 mg Q6H PRN PRN Administration Pain 1-10 Or Fever >100.7 Albuterol Sulfate 2.5 mg 11/20/24 19:29 Albuterol 2.5 Mg/3 Ml Vial.Neb. INHALATION Q2H PRN PRN SOB &/OR WHEEZING Atorvastatin Calcium 10 mg 11/21/24 10:00 11/21/24 10:31 Atorvastatin Calcium 10 Mg Tablet PO 10 mg DAILY SARAH Administration Duloxetine HCl 60 mg 11/20/24 22:00 11/21/24 10:30 Duloxetine Hcl 60 Mg Capsule PO 60 mg BID SARAH Administration Enoxaparin Sodium 40 mg 11/20/24 22:00 11/21/24 10:31 Enoxaparin 40 Mg/0.4 Ml Syringe SC 40 mg BID SARAH Administration Gabapentin 300 mg 11/21/24 10:00 11/21/24 10:32 Gabapentin 300 Mg Capsule PO 300 mg DAILY SARAH Administration Glucagon 1 mg 11/20/24 19:29 Glucagon 1 Mg/Ml Syringe IM X1 PRN HYPOGLYCEMIA Protocol Dextrose 250 mls @ 0 mls/hr 11/20/24 19:29 Dextrose 10%-Water IV .Q0M PRN HYPOGLYCEMIA Protocol As Directed Vancomycin IV-PHARMACY TO DOSE 500 mls @ 250 mls/hr 11/20/24 19:29 1 each/ Sodium Chloride IV X1 PRN Rx to Dose Protocol Cefepime HCl 2 gm/ Sodium 100 mls @ 200 mls/hr 11/20/24 22:00 11/21/24 06:40 Chloride IV Infused Q8 SARAH Infusion Sodium Chloride 250 mls @ 15 mls/hr 11/20/24 19:30 11/21/24 05:46 IV 15 mls/hr .[id number] PRN Administration Saline Flush Sodium Chloride 250 mls @ 15 mls/hr 11/20/24 19:30 IV .[id number] PRN Additional IVPB Infusion Norepinephrine Bitartrate 8 mg 250 mls @ 9.375 mls/hr 11/20/24 20:20 11/21/2506:45 / Sodium Chloride CONT INF 0 mcg/min .[id number] SARAH 0 mls/hr Titration Protocol 5 MCG/MIN Vancomycin HCl 1,750 mg/ 535 mls @ 250 mls/hr 11/21/24 04:30 11/21/24 06:40 Sodium Chloride IV Infused Q12H SARAH Infusion Insulin Glargine 20 unit 11/20/24 22:00 11/21/24 10:30 Insulin Glargine-Yfgn 100 Unit/Ml Pen SC 20 unit BID SARAH Administration Insulin Human Lispro 0 unit 11/20/24 22:00 11/21/24 11:20 Insulin Lispro 100 Unit/Ml Insuln.Pen SC 6 u ACHS SARAH Administration Protocol Lidocaine 1 patch 11/21/24 10:00 11/21/24 10:31 Lidocaine 5% Patch TOPICAL 1 patch DAILY SARAH Administration Protocol Loratadine 10 mg 11/21/24 10:00 11/21/24 10:30 Loratadine 10 Mg Tablet PO 10 mg DAILY SARAH Administration Melatonin 10 mg 11/20/24 19:29 Melatonin 3 Mg Tablet PO QHS PRN PRN INSOMNIA Morphine Sulfate 2 - 4 mg 11/20/24 19:29 Morphine 2 Mg/Ml Syringe IV Q3H PRN PRN Pain Score 6-10 Ondansetron HCl 4 mg 11/20/24 19:29 Ondansetron 4 Mg/2 Ml Vial IV Q8H PRN PRN NAUSEA/VOMITING Oxycodone HCl 5 mg 11/20/24 19:29 Oxycodone 5 Mg Tablet PO Q4H PRN PRN Pain Score 4-10 Pantoprazole Sodium 40 mg 11/20/24 22:00 11/21/24 10:32 Pantoprazole Sodium 40 Mg Tablet PO 40 mg BID SARAH Administration Pramipexole Dihydrochloride 0.25 mg 11/20/24 22:00 11/20/24 22:01 Pramipexole Di-Hcl 0.25 Mg Tablet PO 0.25 mg QHS [facility] Administration Senna/Docusate Sodium 2 tablet 11/20/24 19:29 Senna/Docusate Sodium 1 Tablet PO BID PRN PRN Constipation Sodium Chloride 10 - 40 ml 11/20/24 19:30 11/21/24 04:24 0.9% Saline Lock 10 Ml Syringe IV 10 ml UD PRN Administration SALINE FLUSH Vancomycin Protocol 1 lab 11/22/24 03:00 Vancomycin Trough/Random Due MC 11/22/24 05:00 DAILY [facility] Lab / Micro Data 11/21/24 04:01 11/21/24 04:01 Labs: Laboratory Results - last 24 hr 11/20/24 14:33: WBC 9.6, RBC 4.29, Hgb 12.6, Hct 38.8, MCV 90.4, MCH 29.4, MCHC 32.5, RDW Std Deviation 46.5 H, RDW Coeff of Tatum 14.2, Plt Count 148 L, MPV 10.4, Immature Gran % (Auto) 0.700, Neut % (Auto) 89.4 H, Lymph % (Auto) 5.2 L, [place] % (Auto) 4.1, Eos % (Auto) 0.4, Baso % (Auto) 0.2, Absolute Neuts (auto) 8.5 H, Absolute Lymphs (auto) 0.50 L, Nucleated RBC % 0, ESR 19, PT 13.6, INR 1.0, APTT 22.6 L, Sodium 132 L, Potassium 4.5, Chloride 100, Carbon Dioxide 24.5, Anion Gap 8, BUN 10, Creatinine 0.83, Estim Creat Clear Calc 104.64, Est GFR (MDRD) Non-Af 81, BUN/Creatinine Ratio 12.3, Glucose 263 H, Lactic Acid 2.4 H*, Calcium 9.3, Total Bilirubin 0.37, AST 24, ALT 26, Alkaline Phosphatase 175 H, C-React Prot Ext Range 11.00 H, Total Protein 7.1, Albumin 3.7, Globulin 3.4,Albumin/Globulin Ratio 1.1, Procalcitonin 0.10, Urine Color Straw, Urine ClarityClear, Urine pH 6.0, Ur Specific Titus 1.015, Urine Protein Negative, Urine Glucose (UA) 1000 H, Urine Ketones Negative, Urine Occult Blood Negative, Urine Nitrite Negative, Urine Bilirubin Negative, Urine Urobilinogen Normal, Ur Leukocyte Esterase Negative, Urine RBC 0-5 SEEN, Urine WBC 0-5 SEEN, Ur SquamousEpith Cells 5-10 SEEN, Urine Bacteria RARE, Urine Mucus 0 SEEN 11/20/24 19:56: Lactic Acid 2.4 H* 11/20/24 20:36: POC Glucose 123 H 11/21/24 04:01: WBC 11.2 H, RBC 3.80 L, Hgb 11.2 L, Hct 34.4 L, MCV 90.5, MCH 29.5, MCHC 32.6, RDW Std Deviation 47.7 H, RDW Coeff of Tatum 14.4, Plt Count 105 L, MPV 10.6, Immature Gran % (Auto) 0.700, Neut % (Auto) 86.6 H, Lymph % (Auto) 7.5 L, [place] % (Auto) 4.7, Eos % (Auto) 0.1, Baso % (Auto) 0.4, Absolute Neuts (auto) 9.7 H, Absolute Lymphs (auto) 0.84, Nucleated RBC % 0, ESR 26, Sodium 136, Potassium 4.0, Chloride 104, Carbon Dioxide 22.5, Anion Gap 10, BUN 13, Creatinine 0.87, Estim Creat Clear Calc 99.31, Est GFR (MDRD) Non-Af 78, BUN/Creatinine Ratio 15.4, Glucose 266 H, Lactic Acid 1.5, Calcium 8.4, C-React Prot Ext Range 115.00 H, Procalcitonin 8.24 H 11/21/24 06:53: POC Glucose 248 H Micro: Microbiology 11/20/24 05:15 Mucosa - Nasopharyngeal Respiratory Panel (PCR) - Final 11/20/24 15:03 Blood Culture (Wb) - Venous Blood Culture - Preliminary 11/20/24 14:33 Blood Culture (Wb) - Anticubital Left Bacteria Detection (PCR) - Final Meth. resistant Staph. aureus 11/20/24 14:33 Blood Culture (Wb) - Anticubital Left Blood Culture - Preliminary 11/20/24 14:33 Mucosa - Nose SARS-CoV-2, Influenza & RSV (PCR) - Final Imaging Radiology Impression Brain CT 11/20/24 14:29 IMPRESSION: No acute intracranial findings. Trace mucoperiosteal thickening, left maxillary sinus. Reading Location: [facility] Lumbar Spine CT 11/20/24 14:29 IMPRESSION: No acute osseous abnormalities involving the lumbar spine. Severe degenerative disc disease at L5-S1. Mild spondylosis. Reading Location: [facility] Chest X-Ray 11/20/24 15:10 IMPRESSION: No Acute Findings. Reading Location: [facility] Abdomen/Pelvis CT 11/20/24 16:54 IMPRESSION: No acute intra-abdominal process. Trace pericardial effusion. Reading Location: [id number] Assessment and Plan . Assessment and plan: 1. Septic Shock: in setting of known HF. Procal elevated. Cultures:-. s/p sepsisbolus. Now off pressors. 2. MRSA BSI: source not clear. Await echo read for eval of valves and leads. Mayneed tagged WBC study and MRI of L spine given new pain. Continue Vanc and cefepime. 3. Back pain: new. No hx. Noted degenerative changes in location. If persists, may need MRI 4. Hyponatremia: Hypovolemic. Improved with isotonic IVFs. 5. FEN: Oral diet 6. CHF: appears compensated. Hold diuretics as just came off pressors. 7. PX: toy Lal MD Critical Care Time: 50 minutes The entirety of this encounter was done via Telemedicine Physical Exam Narrative awake, NAD pupils: = o/p:clear, dental chaitanya on bottom left CV: RRR, no clear murmurs Chest: CTA B Abd :soft, NT, +bs Ext: no c/e/c, no areas of cellulitis Neuro: 5/5 strenght in upper extremities Subjective Subjective chart reviewed. Now off levophed. Cultures + for MRSA 11/21/24 1146 <Electronically signed by Pedro Luis Lal MD> Cosigner Signature (if applicable): CC: ~ Signed [facility] Work Phone: [phone]) 154-446305-10-2025 Progress note Author Haider Smith [facility] Note Date/Time November 21, 2024 11:00 am [facility] Medical Records Department [address] [place] [address] Progress Note - Hospitalist 11/21/24714 MR#: [id number] Acct: [id number] Name: MICHELLE JULES Rep #:[id number] : 1965 59 From: Haider Smith DO PCP: Dr. Lisseth Peñaloza MD Status:ADM IN Location: ICU ICU01-1 Reason for Visit Reason for Visit: Diagnoses Sepsis, unspecified organism (11/20/24) Subjective Subjective Feeling better. Weaned off norepinephrine. Objective Data Objective Data Vital Signs: Vital Signs Temp Pulse Resp BP Pulse Ox O2 Del Method O2 Flow Rate 36.3 C L 83 13 122/81 H 97 Nasal Cannula 2 11/21/24 04:00 11/21/24 06:15 11/21/24 06:00 11/21/24 06:15 11/21/24 06:00 11/21/24 06:00 11/21/24 06:00 Oxygen Flow Rate (L/min) 2 Oxygen Delivery Method Nasal Cannula Weight: 120.202 kg Body Mass Index (BMI) 39.2 Intake & Output: Intake and Output for Last 24 Hours 11/19/24 11/20/24 11/21/24 23:59 23:59 23:59 Intake Total 4276.98 / 4281.68 985.27 / 985.27 Output Total 350 / 350 700 / 700 Balance 3926.98 / 3931.68 285.27 / 285.27 Lab / Micro Data 11/21/24 04:01 11/21/24 04:01 Labs: Laboratory Results - last 24 hr 11/20/24 14:33: WBC 9.6, RBC 4.29, Hgb 12.6, Hct 38.8, MCV 90.4, MCH 29.4, MCHC 32.5, RDW Std Deviation 46.5 H, RDW Coeff of Tatum 14.2, Plt Count 148 L, MPV 10.4, Immature Gran % (Auto) 0.700, Neut % (Auto) 89.4 H, Lymph % (Auto) 5.2 L, [place] % (Auto) 4.1, Eos % (Auto) 0.4, Baso % (Auto) 0.2, Absolute Neuts (auto) 8.5 H, Absolute Lymphs (auto) 0.50 L, Nucleated RBC % 0, ESR 19, PT 13.6, INR 1.0, APTT 22.6 L, Sodium 132 L, Potassium 4.5, Chloride 100, Carbon Dioxide 24.5, Anion Gap 8, BUN 10, Creatinine 0.83, Estim Creat Clear Calc 104.64, Est GFR (MDRD) Non-Af 81, BUN/Creatinine Ratio 12.3, Glucose 263 H, Lactic Acid 2.4 H*, Calcium 9.3, Total Bilirubin 0.37, AST 24, ALT 26, Alkaline Phosphatase 175 H, C-React Prot Ext Range 11.00 H, Total Protein 7.1, Albumin 3.7, Globulin 3.4,Albumin/Globulin Ratio 1.1, Procalcitonin 0.10, Urine Color Straw, Urine ClarityClear, Urine pH 6.0, Ur Specific Titus 1.015, Urine Protein Negative, Urine Glucose (UA) 1000 H, Urine Ketones Negative, Urine Occult Blood Negative, Urine Nitrite Negative, Urine Bilirubin Negative, Urine Urobilinogen Normal, Ur Leukocyte Esterase Negative, Urine RBC 0-5 SEEN, Urine WBC 0-5 SEEN, Ur SquamousEpith Cells 5-10 SEEN, Urine Bacteria RARE, Urine Mucus 0 SEEN 11/20/24 19:56: Lactic Acid 2.4 H* 11/20/24 20:36: POC Glucose 123 H 11/21/24 04:01: WBC 11.2 H, RBC 3.80 L, Hgb 11.2 L, Hct 34.4 L, MCV 90.5, MCH 29.5, MCHC 32.6, RDW Std Deviation 47.7 H, RDW Coeff of Tatum 14.4, Plt Count 105 L, MPV 10.6, Immature Gran % (Auto) 0.700, Neut % (Auto) 86.6 H, Lymph % (Auto) 7.5 L, [place] % (Auto) 4.7, Eos % (Auto) 0.1, Baso % (Auto) 0.4, Absolute Neuts (auto) 9.7 H, Absolute Lymphs (auto) 0.84, Nucleated RBC % 0, ESR 26, Sodium 136, Potassium 4.0, Chloride 104, Carbon Dioxide 22.5, Anion Gap 10, BUN 13, Creatinine 0.87, Estim Creat Clear Calc 99.31, Est GFR (MDRD) Non-Af 78, BUN/Creatinine Ratio 15.4, Glucose 266 H, Lactic Acid 1.5, Calcium 8.4, C-React Prot Ext Range 115.00 H, Procalcitonin 8.24 H 11/21/24 06:53: POC Glucose 248 H Micro: Microbiology 11/20/24 14:33 Blood Culture (Wb) - Anticubital Left Blood Culture - Preliminary 11/20/24 15:03 Blood Culture (Wb) - Venous Blood Culture - Preliminary 11/20/24 14:33 Mucosa - Nose SARS-CoV-2, Influenza & RSV (PCR) - Final Radiography Diagnostic Testing: Radiology Impression Brain CT 11/20/24 14:29 IMPRESSION: No acute intracranial findings. Trace mucoperiosteal thickening, left maxillary sinus. Reading Location: [facility] Lumbar Spine CT 11/20/24 14:29 IMPRESSION: No acute osseous abnormalities involving the lumbar spine. Severe degenerative disc disease at L5-S1. Mild spondylosis. Reading Location: [facility] Chest X-Ray 11/20/24 15:10 IMPRESSION: No Acute Findings. Reading Location: [facility] Abdomen/Pelvis CT 11/20/24 16:54 IMPRESSION: No acute intra-abdominal process. Trace pericardial effusion. Reading Location: [facility] Physical Exam Narrative POCUS: indication shock. IVC non-collapsible on inspiration. PLAX/PSAX grossly showed hypokinesis. Const alert and no apparent distress HEENT head/scalp atraumatic and moist oral mucous membranes Resp normal respiratory effort, no retractions, no use of accessory muscles and clearto auscultation bilaterally Cardio regular rate, regular rhythm, S1 normal heart sound and S2 normal heart sound GI normal to inspection, nondistended, normoactive bowel sounds, soft to palpation,non-tender and non-distended Extremity normal to inspection Neuro Sensorium / Orientation: awake and alert Assessment & Plan Assessment/Plan (1) Shock: PLAN: undifferentiated at this time. possibilities include septic, hypovolemic. pt did not receive 30 cc/kg of IVF given h/o ischemic cardiomyopathy. Norepi gttweaned off. POA. lactic acidosis resolved CT abd/pelvis negative. UA negative. CRP up from 11 to 115. Procal 8.24. COVID, Influenza, RSV negative. BCx pending (UCx ordered, but of low yield given unremarkable UA) Cefepime and vancomycin Hold carvedilol, sacubitril/valsartan. (2) Low back pain: PLAN: status post fall. Lumbar CT showed severe DDD at L5-S1. PLAN: Plan Chronic conditions: * Ischemic cardiomyopathy: EF 40% hold carvedilol and sacubitril given shock * obesity class III: complicates care and recovery * DM2: Glargine and SSI. a1c 10.7 09/07/24 VTE prophylaxis: LMWH Charges/Coding Visit Charges Inpatient E&M: 21034 Subs Hosp L3 11/21/24 1100 <Electronically signed by Haider Smith DO> Cosigner Signature (if applicable): CC: ~ Signed [facility] Work Phone: [phone]) [phone] Discharge summary Author Javy Saul [facility] Note Date/Time November 20, 2024 11:08p m [facility] Medical Records Department [address] [place] [address] Emergency Department Summary 11/20/24 MR#: [id number] Acct: [id number] Name: MICHELLE JULES Rep #:[id number] : 1965 59 From: Javy Garcia PCP: Dr. Lisseth Peñaloza MD Status:ADM IN Location: ICU ICU01-1 HPI History of Present Illness Chief Complaint: General Illness Informant: patient and EMS Narrative Narrative: 59-year-old female presenting to the emergency room for evaluation of low back pain. Patient states she called the ambulance for low back pain due to an injury 1 week ago when she tripped coming to the hospital for a stress test. She states that she did not get evaluated after the fall because she felt fine. She states that somebody at the stress test told her to take something for fever. When I ask why they would tell her to take something for fever she was not having any she states she does not know. From what I can see in the computer she came to the hospital 09 November for a pacemaker check I do not see a stress test in the computer system. She reports that she went home and states the back has progressively been hurting more. She states that she cannot walk. She said that just started today. She states that she cannot walk because of the pain not because of deficit. She states that she began to have a fever yesterday but does not know where the fever may be coming from. She states she has a generalized headache no rhinorrhea no sore throat no cough no neck pain noupper back pain no abdominal pain. She states her legs ache. She states that she normally has a red dot like rash on her lower legs. Patient has not sought evaluation for this. Patient received 50 mcg of fentanyl by EMS. 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 Reported last ejection fraction of 40% in 2023. This history was extremely difficult to obtain in that the patient often answersI do not know and her answers often conflicts each other. To the best my ability this is her history and I repeated it back to her and she states that that is correct. [facility] Medical History Cardiomyopathy, ischemic Vitamin D deficiency Neuropathy History of placement of internal cardiac defibrillator (09/03/13) GERD (gastroesophageal reflux disease) Anxiety Obesity Type 2 diabetes mellitus with diabetic neuropathy, unspecified Chest pain Heart disease Headache Arthritis Seasonal allergies Nonischemic dilated cardiomyopathy Gout Pulmonary HTN Hyperlipidemia RLS (restless legs syndrome) HTN (hypertension) Home Medications ?Medication ?Instructions ?Recorded ?Last Taken ?Type docusate sodium 100 mg capsule 100 mg PO BID PRN 05/06 Unknown History (Colace) CareFine Pen Needle 30 gauge x #120 ea 05/29/24 Unknow n Rx /16 (pen needle, diabetic) insulin syringe-needle U-100 0.5 #90 ea 05/29/24 Unkno wn Rx mL 31 gauge x 16 (BD Insulin Syringe Ultra-Fine) sacubitril 24 mg-valsartan 26 mg 1 tab PO BID #60 tabs 06/03/24 Unknown Rx tablet (Entresto) blood sugar diagnostic (OneTouch #100 ea 10/15/24 Unkn own Rx Verio test strips) 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 meter (OneTouch #1 ea 10/15/24 Unknown R x Verio Reflect Meter) 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 meter,continuous #1 ea 10/15/24 Unknown Rx (FreeStyle Lance 3 [place]) 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 sensor (FreeStyle #2 ea 10/15/24 Unknown Rx Lance 3 Plus Sensor device) dulaglutide 1.5 mg/0.5 mL 1.5 mg (0.5 mL) subcut QWEEK #2 mL 10/15/24 Unknown Rx subcutaneous pen injector (Trulicity) insulin lispro 100 unit/mL 30 unit subcut TID 10/19/24 Unknown History subcutaneous pen insulin glargine 100 unit/mL (3 40 unit (0.4 mL) subcu t BID #30 mL 10/21/24 Unknown Rx mL) subcutaneous pen (Lantus Solostar U-100 Insulin) atorvastatin 10 mg tablet (Lipitor) 10 mg PO DAILY cho lesterol #90 tabs 10/22/24 Unknown Rx carvedilol 25 mg tablet 25 mg PO Q12H #180 tabs 10/13 Unknown Rx cetirizine 10 mg capsule 10 mg PO DAILY #90 caps 10/13 Unknown Rx cholecalciferol (vitamin D3) 1,250 1,250 mcg PO QWEEK #12 caps 10/22/24 Unknown Rx mcg (50,000 unit) capsule duloxetine 60 mg capsule,delayed 60 mg PO BID #180 cap s 10/22/24 Unknown Rx release magnesium oxide 400 mg (241.3 mg 400 mg PO BID #180 ta bs 10/22/24 Unknown Rx magnesium) tablet gabapentin 300 mg capsule 300 mg PO DAILY #28 caps Unknown Rx spironolactone 25 mg tablet 25 mg PO DAILY #30 tabs Unknown Rx pantoprazole 40 mg tablet,delayed 40 mg PO BID #180 ta bs 11/19/24 Unknown Rx release (Protonix) ropinirole 0.5 mg tablet 0.5 mg PO QHS #90 tabs 11/19 Unknown Rx Allergy/AdvReac Type Severity Reaction Status Date / Time simvastatin Allergy Severe Myalgia Verified 11/20/24 14:18 Latex, Natural Rubber Allergy Unknown Rash Verified 11/20/24 14:18 metformin Allergy Other Verified 11/20/24 14:18 adhesive tape AdvReac Severe Rash Verified 11/20/24 14:18 Family History Father Heart disease Myocardial infarction CAD (coronary artery disease) Mother CAD (coronary artery disease) Heart disease Cancer breast Grandmother Colon cancer Daughter Breast cancer Surgical History History of left heart catheterization Hx of appendectomy H/O colectomy History of hysteroscopy Social History household members: family and other details: ex mother in law , ex housing: house current occupational status: disabled 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 Smoking Status: Never smoker second hand exposure: No alcohol intake: never substance use type: does not use what type of physical activity do you participate in: none seatbelt use: always do you feel safe at home: Yes ROS ROS ED Constitutional Constitutional ED: Reports chills and fever(s); Denies weight loss Eyes Eyes: Denies change in vision or diplopia ENT ENT ED: Denies ear pain, rhinorrhea or sore throat Cardiovascular Cardiovascular: Denies chest pain, orthopnea, palpitations or racing heartbeat Respiratory/Chest Respiratory/Chest: Denies cough, dyspnea or orthopnea Gastrointestinal Gastrointestinal: Denies abdominal pain, diarrhea, nausea or vomiting Genitourinary Genitourinary ED: Denies dysuria, hematuria or urinary frequency Musculoskeletal Musculoskeletal: Reports back pain and other Details: Bilateral leg pain ; Denies arthralgias or myalgias Integumentary Denies abscess or rash Neurologic Neurologic: Reports headache(s); Denies paresthesias or weakness Psychiatric Psychiatric: Denies anxiety, depression, suicidal ideation or suicidal thoughts Endocrine Endocrinology: Denies polydipsia, polyphagia or polyuria Allergic/Immunologic Allergic/Immunologic ED: Denies mouth swelling, tongue swelling or urticaria EXAM Physical Exam Narrative Exam Narrative: Morbidly obese female laying in the bed. She is keeping her eyes closed throughout the conversation and keeps her right arm lifted up off the bed straight up. She does not know why she is doing that. Const Vital Signs: 11/20/24 14:13 11/20/24 14:18 11/20/24 16:21 Temperature 103.2 F H Temperature Source Oral Pulse Rate 120 H 130 H Respiratory Rate 18 17 Respiratory Effort Normal Non-Labored Respiratory Pattern Normal Blood Pressure 141/72 H 143/73 H Blood Pressure Mean 95 96 Pulse Ox 90 Oxygen Delivery Method Room Air Positive well nourished, well developed and obese General Appearance ED: well developed and NAD; Negative for pallor Nutritional Appearance: obese HEENT Reports normocephalic, head/scalp atraumatic and moist mucous membranes Eyes PERRL and EOMs intact bilaterally Neck no lymphadenopathy, supple and no JVD Neck Narrative: No meningeal signs General: Negative for tenderness Resp normal respiratory effort and clear to auscultation bilaterally Cardio regular rate, regular rhythm and no murmurs Rate: tachycardic GI normal to inspection, nondistended, normoactive bowel sounds and non-tender GI Narrative: Obesity limits deep palpation of the abdomen Auscultation: normoactive bowel sounds Palpation: soft; Negative for tender, guarding or rebound tenderness present Back/Spine no CVA tenderness Back/Spine Narrative: I asked the patient to sit up and she is able to do so. She notes pain to palpation over the lower lumbar spine. Erythema or increased warmth noted. There is no palpable muscle spasms. Extremity normal to inspection General Extremety ED: Negative for edema General Extremity: Negative for edema Neuro oriented x3 and CN's II-XII intact bilaterally Sensorium / Orientation: alert Motor Exam: strength 5/5 throughout Psych mental status grossly normal Mood & Affect: Negative for depressed or tearful Skin no wounds General Skin Exam: elasticity normal; Negative for jaundice or pallor Sepsis Attestation Sepsis Alert: Yes Sepsis Attestation: Agree w/Sepsis Date exam was performed: 11/20/24 Time exam was performed: 15:40 Possible Source of Sepsis: Unknown Sepsis Organ Dysfunction Criteria Present: Lactic Acid > 2 mmol/L Fluid Resuscitation Fluid resuscitation indicated?: Yes (NO) MDM MDM MDM Narrative Medical decision making narrative: Differential diagnosis would include but not limited to viral syndrome pneumoniaUTI sepsis lumbar fracture discitis osteomyelitis bacteremia electrolyte abnormalities renal liver dysfunction Patient received IV fluids as she is not having hypotension. She received Tylenol for fever. Blood cultures and urine culture was obtained. White count 9.6 hemoglobin 12.6 platelet count 148. INR is 1 creatinine 0.83 normal LFTs. Lactic acid 2.4 urinalysis was no obvious infection. Plan for interpretation ofthe chest x-ray is no acute process. CT imaging of the brain showed no acute findings intracranially. CT of the lumbar spine demonstrates degenerative changes at L5-S1 with no acute fracture. Patient's EKG is AV paced at 128. Because of the possibility of discitis vancomycin and cefepime were ordered. Patient does not seem to have photophobia or neck pain to make me feel strongly that she needs a lumbar puncture. Because of her pacemaker I do not know if sheis a candidate for MRI. I will be speaking with the hospitalist regarding admission for further care. History & Record Review Discussion w/independent historian: EMS personnel and Patient Additional record(s) reviewed:: Prior outpatient record, Prior ED visit and Prior labs Lab Data Attestation: I reviewed the patient's lab results. Labs: Laboratory Results - last 24 hr 11/20/24 14:33 WBC 9.6 RBC 4.29 Hgb 12.6 Hct 38.8 MCV 90.4 MCH 29.4 MCHC 32.5 RDW Std Deviation 46.5 H RDW Coeff of Tatum 14.2 Plt Count 148 L MPV 10.4 Immature Gran % (Auto) 0.700 Neut % (Auto) 89.4 H Lymph % (Auto) 5.2 L [place] % (Auto) 4.1 Eos % (Auto) 0.4 Baso % (Auto) 0.2 Absolute Neuts (auto) 8.5 H Absolute Lymphs (auto) 0.50 L Nucleated RBC % 0 PT 13.6 INR 1.0 APTT 22.6 L Sodium 132 L Potassium 4.5 Chloride 100 Carbon Dioxide 24.5 Anion Gap 8 BUN 10 Creatinine 0.83 Estim Creat Clear Calc 104.64 Est GFR (MDRD) Non-Af 81 BUN/Creatinine Ratio 12.3 Glucose 263 H Lactic Acid 2.4 H* Calcium 9.3 Total Bilirubin 0.37 AST 24 ALT 26 Alkaline Phosphatase 175 H Total Protein 7.1 Albumin 3.7 Globulin 3.4 Albumin/Globulin Ratio 1.1 Urine Color Straw Urine Clarity Clear Urine pH 6.0 Ur Specific [place]itus 1.015 Urine Protein Negative Urine Glucose (UA) 1000 H Urine Ketones Negative Urine Occult Blood Negative Urine Nitrite Negative Urine Bilirubin Negative Urine Urobilinogen Normal Ur Leukocyte Esterase Negative Urine RBC 0-5 SEEN Urine WBC 0-5 SEEN Ur Squamous Epith Cells 5-10 SEEN Urine Bacteria RARE Urine Mucus 0 SEEN Radiography Diagnostic Testing: Clinical Impression(s) from Imaging Studies Brain CT 11/20/24 14:29 IMPRESSION: No acute intracranial findings. Trace mucoperiosteal thickening, left maxillary sinus. Reading Location: [facility] Lumbar Spine CT 11/20/24 14:29 IMPRESSION: No acute osseous abnormalities involving the lumbar spine. Severe degenerative disc disease at L5-S1. Mild spondylosis. Reading Location: [facility] Chest X-Ray 11/20/24 15:10 IMPRESSION: No Acute Findings. [facility] Initial EKG: Attestation: I personally reviewed and interpreted this EKG as follows: Comments: AV paced at 120 bpm Prior EKG tracings: available for review Prior: Unchanged Discharge Plan Dx/Rx/DC Orders Clinical Impression: Acute febrile illness, Low back pain, Cardiomyopathy, ischemic, Sepsis Disposition Disposition: Acute Care [facility] What to do if you have Problems For any increased pain, shortness of breath, bleeding, nausea or vomiting, chestpain, or any unexpected problems, contact your Primary Care Provider. Call [facility] ([phone]) or report to the closest Emergency Room. Call 911 if necessary. 11/20/240 <Electronically signed by Javy Saul DO> Cosigner Signature (if applicable): CC: Dr. Lisseth Peñaloza MD ~ Signed [facility] Work Phone: [phone] Consult note Author Jesus Varela [facility] Note Date/Time November 20, 2024 9:49pm [facility] Medical Records Department [address] [place] [address] Consultation - Clinic Supervisor 11/20/24 2141 MR#: [id number] Acct: [id number] Name: MICHELLE JULES Rep #:[id number] 1 : 1965 59 From: Jesus Varela MD PCP: Dr. Lisseth Peñaloza MD Status:ADM IN Location: ICU ICU01-1 HPI Consult Data Date of Consult: 11/20/24 HPI Narrative Reason for Consultation: undiferrentiated shock HPI Narrative: MICHELLE JULES, is a 59 F who presents with low MAP and SBP to the ICU. Patient CC is pain in the low back, but denies any direct trauma to the back. She did fall a few days ago, but states she fell onto her palms and belly. She denies flank pain and dysuria, but has been treating a yeast infection. She denies changes in BM and urinary habits. Denies swelling despite a background of AICD and CHFrEF/ICMP40%. She was noted to have fever in ED, but denies feeling feverish at home. Denies cough, chest congestion, rhinorrhea, diarrhea, dysuria,abdominal cramping, and pretty much all else. No skin wounds or rashes or new lumps or bumps. In total, she has received 3.5L IVF by the time of evaluation and still has MAP ~61torr. Straight leg raise test at bedside is negative. LA remains elevated at a level ~2.4. [facility] Medical History Cardiomyopathy, ischemic Vitamin D deficiency Neuropathy History of placement of internal cardiac defibrillator (09/03/13) GERD (gastroesophageal reflux disease) Anxiety Obesity Type 2 diabetes mellitus with diabetic neuropathy, unspecified Chest pain Heart disease Headache Arthritis Seasonal allergies Nonischemic dilated cardiomyopathy Gout Pulmonary HTN Hyperlipidemia RLS (restless legs syndrome) HTN (hypertension) Home Medications ?Medication ?Instructions ?Recorded ?Last Taken ?Type docusate sodium 100 mg capsule 100 mg PO BID PRN 05/06 Unknown History (Colace) CareFine Pen Needle 30 gauge x #120 ea 05/29/24 Unknow n Rx 5/16 (pen needle, diabetic) insulin syringe-needle U-100 0.5 #90 ea 05/29/24 Unkno wn Rx mL 31 gauge x 5/16 (BD Insulin Syringe Ultra-Fine) sacubitril 24 mg-valsartan 26 mg 1 tab PO BID #60 tabs 06/03/24 Unknown Rx tablet (Entresto) blood sugar diagnostic (OneTouch #100 ea 10/15/24 Unkn own Rx Verio test strips) 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 meter (OneTouch #1 ea 10/15/24 Unknown R x Verio Reflect Meter) 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 meter,continuous #1 ea 10/15/24 Unknown Rx (FreeStyle Lance 3 [place]) 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 sensor (FreeStyle #2 ea 10/15/24 Unknown Rx Lance 3 Plus Sensor device) dulaglutide 1.5 mg/0.5 mL 1.5 mg (0.5 mL) subcut QWEEK #2 mL 10/15/24 Unknown Rx subcutaneous pen injector (Trulicity) insulin lispro 100 unit/mL 30 unit subcut TID 10/19/24 Unknown History subcutaneous pen insulin glargine 100 unit/mL (3 40 unit (0.4 mL) subcu t BID #30 mL 10/21/24 Unknown Rx mL) subcutaneous pen (Lantus Solostar U-100 Insulin) atorvastatin 10 mg tablet (Lipitor) 10 mg PO DAILY cho lesterol #90 tabs 10/22/24 Unknown Rx carvedilol 25 mg tablet 25 mg PO Q12H #180 tabs 10/13 Unknown Rx cetirizine 10 mg capsule 10 mg PO DAILY #90 caps 10/13 Unknown Rx cholecalciferol (vitamin D3) 1,250 1,250 mcg PO QWEEK #12 caps 10/22/24 Unknown Rx mcg (50,000 unit) capsule duloxetine 60 mg capsule,delayed 60 mg PO BID #180 cap s 10/22/24 Unknown Rx release magnesium oxide 400 mg (241.3 mg 400 mg PO BID #180 ta bs 10/22/24 Unknown Rx magnesium) tablet gabapentin 300 mg capsule 300 mg PO DAILY #28 caps Unknown Rx spironolactone 25 mg tablet 25 mg PO DAILY #30 tabs Unknown Rx pantoprazole 40 mg tablet,delayed 40 mg PO BID #180 ta bs 11/19/24 Unknown Rx release (Protonix) ropinirole 0.5 mg tablet 0.5 mg PO QHS #90 tabs 11/19 Unknown Rx Allergy/AdvReac Type Severity Reaction Status Date / Time simvastatin Allergy Severe Myalgia Verified 11/20/24 14:18 Latex, Natural Rubber Allergy Unknown Rash Verified 11/20/24 14:18 metformin Allergy Other Verified 11/20/24 14:18 adhesive tape AdvReac Severe Rash Verified 11/20/24 14:18 Family History Father Heart disease Myocardial infarction CAD (coronary artery disease) Mother CAD (coronary artery disease) Heart disease Cancer breast Grandmother Colon cancer Daughter Breast cancer Surgical History History of left heart catheterization Hx of appendectomy H/O colectomy History of hysteroscopy Social History household members: family and other details: ex mother in law , ex housing: house current occupational status: disabled 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 Smoking Status: Never smoker second hand exposure: No alcohol intake: never substance use type: does not use what type of physical activity do you participate in: none seatbelt use: always do you feel safe at home: Yes ROS ROS Narrative 12 or more systems reviewed and are negative except as per HPI Objective Data Objective Data Vital Signs: Vital Signs Last response 3 Temperature 37.4 C H 11/20/24 21:00 Temperature Source Oral 11/20/24 21:00 Pulse Rate 121 H 11/20/24 21:00 Respiratory Rate 16 11/20/24 21:00 Respiratory Effort Normal, Non-Labored 11/20/24 14:18 Respiratory Pattern Normal 11/20/24 14:18 Blood Pressure 101/65 11/20/24 21:00 Blood Pressure Mean 77 05/09/25 21:00 Blood Pressure Source Monitor 11/20/24 20:45 Blood Pressure Position Semi-Fowlers 11/20/24 20:45 Blood Pressure Location Right Arm 11/20/24 20:45 Pulse Ox 95 11/20/24 21:00 Oxygen Delivery Method Nasal Cannula 11/20/24 21:00 Oxygen Flow Rate (L/min) 2 11/20/24 21:00 I&O: I&O Last 24 Hours 3 11/19/24 11/20/24 11/20/24 23:59 11:59 23:59 Intake Total 4140 / 4140 Balance 4140 / 4140 I&O: Total Stay 3 11/20/24 14:12 thru 11/20/24 20:59 Intake Total 4140 Balance 4140 Current Meds Ordered / Administered: Current meds ordered / Administered 3 Generic Name Dose Route Start Last Admin Trade Name Freq PRN Reason Stop Dose Admin Acetaminophen 650 mg 11/20/24 21:00 11/20/24 20:18 Acetaminophen 325 Mg Tablet PO 650 mg Q6H PRN PRN Administration Pain 1-10 Or Fever >100.7 Albuterol Sulfate 2.5 mg 11/20/24 19:29 Albuterol 2.5 Mg/3 Ml Vial.Neb. INHALATION Q2H PRN PRN SOB &/OR WHEEZING Atorvastatin Calcium 10 mg 11/21/24 10:00 Atorvastatin Calcium 10 Mg Tablet PO DAILY [facility] Carvedilol 6.25 mg 11/20/24 22:00 Carvedilol 6.25 Mg Tablet PO BID [facility] Protocol Duloxetine HCl 60 mg 11/20/24 22:00 Duloxetine Hcl 60 Mg Capsule PO BID [facility] Enoxaparin Sodium 40 mg 11/20/24 22:00 Enoxaparin 40 Mg/0.4 Ml Syringe SC BID [facility] Gabapentin 300 mg 11/21/24 10:00 Gabapentin 300 Mg Capsule PO DAILY [facility] Glucagon 1 mg 11/20/24 19:29 Glucagon 1 Mg/Ml Syringe IM X1 PRN [facility]POGLYCEM[facility] Protocol Dextrose 250 mls @ 0 mls/hr 11/20/24 19:29 Dextrose 10%-Water IV .Q0M PRN HYPOGLYCEMIA Protocol As Directed Vancomycin IV-PHARMACY TO DOSE 500 mls @ 250 mls/hr 11/20/24 19:29 1 each/ Sodium Chloride IV X1 PRN Rx to Dose Protocol Cefepime HCl 2 gm/ Sodium 100 mls @ 200 mls/hr 11/20/24 22:00 11/20/24 20:41 Chloride IV 200 mls/hr Q8 SARAH Administration Sodium Chloride 250 mls @ 15 mls/hr 11/20/24 19:30 11/20/24 20:43 IV 15 mls/hr .[id number] PRN Administration Saline Flush Sodium Chloride 250 mls @ 15 mls/hr 11/20/24 19:30 IV .[id number] PRN Additional IVPB Infusion Norepinephrine Bitartrate 8 mg 250 mls @ 9.375 mls/hr 11/20/24 20:20 / Sodium Chloride CONT INF .[id number] [facility] Protocol 5 MCG/MIN Vancomycin HCl 1,750 mg/ 535 mls @ 250 mls/hr 11/21/24 04:30 Sodium Chloride IV Q12H [facility] Insulin Glargine 20 unit 11/20/24 22:00 Insulin Glargine-Yfgn 100 Unit/Ml Pen SC BID [facility] Insulin Human Lispro 0 unit 11/20/24 22:00 11/20/24 20:43 Insulin Lispro 100 Unit/Ml Insuln.Pen SC Not Given ACHS [facility] Protocol Iopamidol 0 ml 11/20/24 17:00 11/20/24 20:04 Contrast Allergy Safety Check IV Not Given X1 [facility] Lidocaine 1 patch 11/21/24 10:00 Lidocaine 5% Patch TOPICAL DAILY [facility] Protocol Loratadine 10 mg 11/21/24 10:00 Loratadine 10 Mg Tablet PO DAILY [facility] Melatonin 10 mg 11/20/24 19:29 Melatonin 3 Mg Tablet PO QHS PRN PRN INSOMNIA Morphine Sulfate 2 - 4 mg 11/20/24 19:29 Morphine 2 Mg/Ml Syringe IV Q3H PRN PRN Pain Score 6-10 Ondansetron HCl 4 mg 11/20/24 19:29 Ondansetron 4 Mg/2 Ml Vial IV Q8H PRN PRN NAUSEA/VOMITING Oxycodone HCl 5 mg 11/20/24 19:29 Oxycodone 5 Mg Tablet PO Q4H PRN PRN Pain Score 4-10 Pantoprazole Sodium 40 mg 11/20/24 22:00 Pantoprazole Sodium 40 Mg Tablet PO BID [facility] Pramipexole Dihydrochloride 0.25 mg 11/20/24 22:00 Pramipexole Di-Hcl 0.25 Mg Tablet PO QHS [facility] Sacubitril/Valsartan 1 each 11/20/24 22:00 Sacubitril/Valsartan 24/26 Mg Tablet PO BID [facility] Senna/Docusate Sodium 2 tablet 11/20/24 19:29 Senna/Docusate Sodium 1 Tablet PO BID PRN PRN Constipation Sodium Chloride 10 - 40 ml 11/20/24 19:30 11/20/24 20:42 0.9% Saline Lock 10 Ml Syringe IV 10 ml UD PRN Administration SALINE FLUSH Vancomycin Protocol 1 lab 11/22/24 03:00 Vancomycin Trough/Random Due 11/22/24 05:00 DAILY [facility] Physical Exam Const alert, oriented x3 and no apparent distress General Appearance: cooperative, well developed and ill appearing HEENT normocephalic, head/scalp atraumatic and moist oral mucous membranes Mouth: oral and palatal mucosa normal Eyes PERRL, EOMs intact bilaterally, conjunctivae normal and no scleral icterus Neck full ROM, supple and no JVD Chest inspection of chest normal Resp normal respiratory effort and no use of accessory muscles Effort and Inspection: able to speak in complete sentences Auscultation: rales Cardio Rate: tachycardic GI normal to inspection, nondistended, normoactive bowel sounds, soft to palpation and non-tender no CVA tenderness Extremity no clubbing, cyanosis or edema Skin no rashes or lesions noted General Skin Exam: erythema Neuro oriented x3, CN's II-XII intact bilaterally, moves all extremities and no focal motor deficits Psych cooperative and affect normal Appearance: well kempt Speech: normal speech Lab / Micro Data Attestation: I reviewed the patient's lab results. 11/20/24 14:33 11/20/24 14:33 Labs: Laboratory Results - last 24 hr 11/20/24 14:33: WBC 9.6, RBC 4.29, Hgb 12.6, Hct 38.8, MCV 90.4, MCH 29.4, MCHC 32.5, RDW Std Deviation 46.5 H, RDW Coeff of Tatum 14.2, Plt Count 148 L, MPV 10.4, Immature Gran % (Auto) 0.700, Neut % (Auto) 89.4 H, Lymph % (Auto) 5.2 L, [place] % (Auto) 4.1, Eos % (Auto) 0.4, Baso % (Auto) 0.2, Absolute Neuts (auto) 8.5 H, Absolute Lymphs (auto) 0.50 L, Nucleated RBC % 0, ESR 19, PT 13.6, INR 1.0, APTT 22.6 L, Sodium 132 L, Potassium 4.5, Chloride 100, Carbon Dioxide 24.5, Anion Gap 8, BUN 10, Creatinine 0.83, Estim Creat Clear Calc 104.64, Est GFR (MDRD) Non-Af 81, BUN/Creatinine Ratio 12.3, Glucose 263 H, Lactic Acid 2.4 H*, Calcium 9.3, Total Bilirubin 0.37, AST 24, ALT 26, Alkaline Phosphatase 175 H, C-React Prot Ext Range 11.00 H, Total Protein 7.1, Albumin 3.7, Globulin 3.4,Albumin/Globulin Ratio 1.1, Procalcitonin 0.10, Urine Color Straw, Urine ClarityClear, Urine pH 6.0, Ur Specific [place] 1.015, Urine Protein Negative, Urine Glucose (UA) 1000 H, Urine Ketones Negative, Urine Occult Blood Negative, Urine Nitrite Negative, Urine Bilirubin Negative, Urine Urobilinogen Normal, Ur Leukocyte Esterase Negative, Urine RBC 0-5 SEEN, Urine WBC 0-5 SEEN, Ur SquamousEpith Cells 5-10 SEEN, Urine Bacteria RARE, Urine Mucus 0 SEEN 11/20/24 19:56: Lactic Acid 2.4 H* 11/20/24 20:36: POC Glucose 123 H Micro: Microbiology 11/20/24 14:33 Mucosa - Nose SARS-CoV-2, Influenza & RSV (PCR) - Final Imaging Radiology Impression Brain CT 11/20/24 14:29 IMPRESSION: No acute intracranial findings. Trace mucoperiosteal thickening, left maxillary sinus. Reading Location: [facility] Lumbar Spine CT 11/20/24 14:29 IMPRESSION: No acute osseous abnormalities involving the lumbar spine. Severe degenerative disc disease at L5-S1. Mild spondylosis. Reading Location: [facility] Chest X-Ray 11/20/24 15:10 IMPRESSION: No Acute Findings. Reading Location: [facility] Abdomen/Pelvis CT 11/20/24 16:54 IMPRESSION: No acute intra-abdominal process. Trace pericardial effusion. Reading Location: [id number] Reviewed personally as well Assessment and Plan . Assessment and plan: ICU problem List: Undifferentiated shock, probably not hypovolemic or neurogenic Fever of unknown origina kellie Plan: Blood cx pending UCx pending, but UA not convincing for infection CT abd negative for intrabdominal pathology Recommend CT chest ECHO, full Arterial Line start NE for shock, given lack of response to fluids and leg raise testing may simply need to tolerate tachycardia for now, as cardiotonic agents like dopamine and milrinone still can cause tachycardi Cardiology consultation Jesus Varela MD PCCM [facility] Critical Care Time: 69 min The entirety of this encounter was done via Telemedicine 11/20/246 <Electronically signed by Jesus Varela MD> Cosigner Signature (if applicable): CC: Dr. Lisseth Peñaloza MD~ Signed [facility] Work Phone: [phone]) 333-843205-09-2025 History and physical note Author Mariah Brewer [facility] Note Date/Time November 20, 2024 7:16pm [facility] Medical Records Department [address] [place] [id number] H&P Exam - Hospitalist 11/20/24 1700 MR#: [id number] Acct: [id number] Name: MICHELLE JULES Rep #:[id number] : 1965 59 From: Mariah Brewer MD PCP: Dr. Lisseth Peñaloza MD Status:ADM IN Location: ICU ICU01-1 HPI - General General Date of Admission: 11/20/24 Date of Service: 11/20/24 Chief Complaint: Back pain, fever HPI Narrative MICHELLE JULES, is a 59-year-old female with history of ischemic cardiomyopathy with pacer defibrillator placement, diabetes, and GERD who presented to [facility] ED 11/20/2024 due to complaints of back pain and fever. Patient poor historian but seems that a week ago she had either stress test or apacemaker check and fell in the parking lot, she did not get evaluated after that she reports she felt fine however since that time her back has been hurtingher more and more and she has a hard time walking due to the pain, not because of a deficit. She also started to have a fever yesterday. In the ED temperature 103.2, pulse rate 120 with a blood pressure 141/72, respiratory 18 pulse ox initially 90% on room air. CBC with platelet count of 148, hemoglobin 12.6 and white blood cell count 9.6, lactic acid 2.4, UA not suggestive of infection. Chest x-ray obtained with no acute process. Given her fall a week ago she had a lumbar spine CT which showed severe degenerative disc disease at L5-S1 with no other acute osseous abnormalities and CT brain unremarkable aside from trace mucoperiosteal thickening of the left maxillary sinus. Patient diagnosed with sepsis and given fluids and IV antibiotics and hospitalist contacted for admission. Patient evaluated at bedside and reports the history as above of her walking in a parking lot a week ago and having a fall with progressively worsened lower back pain since that time. Patient was adamant forme and ED provider that she has no weakness in her legs, the pain is aching and across her lower back does not go into her legs, she is able to move her legs and roll in the bed, it is all pain localized to the lower back with no other pain in her spine, she has some chronic constipation that has been unchanged anddenies any urinary changes. Patient did not endorse this for ED physician however she told me that she has some central abdominal pain going across her abdomen that is sometimes aching sometimes sharp and currently feels nauseous soa CT abdomen pelvis was added onto in the ED and showed trace pericardial effusion but no acute intra-abdominal process, did note distended urinary bladder [facility] Medical History Cardiomyopathy, ischemic Vitamin D deficiency Neuropathy History of placement of internal cardiac defibrillator (09/03/13) GERD (gastroesophageal reflux disease) Anxiety Obesity Type 2 diabetes mellitus with diabetic neuropathy, unspecified Chest pain Heart disease Headache Arthritis Seasonal allergies Nonischemic dilated cardiomyopathy Gout Pulmonary HTN Hyperlipidemia RLS (restless legs syndrome) HTN (hypertension) Home Medications ?Medication ?Instructions ?Recorded ?Last Taken ?Type docusate sodium 100 mg capsule 100 mg PO BID PRN 05/06 Unknown History (Colace) CareFine Pen Needle 30 gauge x #120 ea 05/29/24 Unknow n Rx /16 (pen needle, diabetic) insulin syringe-needle U-100 0.5 #90 ea 05/29/24 Unkno wn Rx mL 31 gauge x 5/16 (BD Insulin Syringe Ultra-Fine) sacubitril 24 mg-valsartan 26 mg 1 tab PO BID #60 tabs 06/03/24 Unknown Rx tablet (Entresto) blood sugar diagnostic (OneTouch #100 ea 10/15/24 Unkn own Rx Verio test strips) 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 meter (OneTouch #1 ea 10/15/24 Unknown R x Verio Reflect Meter) 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 meter,continuous #1 ea 10/15/24 Unknown Rx (FreeStyle Lance 3 [place]) 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 sensor (FreeStyle #2 ea 10/15/24 Unknown Rx Lance 3 Plus Sensor device) dulaglutide 1.5 mg/0.5 mL 1.5 mg (0.5 mL) subcut QWEEK #2 mL 10/15/24 Unknown Rx subcutaneous pen injector (Trulicity) insulin lispro 100 unit/mL 30 unit subcut TID 10/19/24 Unknown History subcutaneous pen insulin glargine 100 unit/mL (3 40 unit (0.4 mL) subcu t BID #30 mL 10/21/24 Unknown Rx mL) subcutaneous pen (Lantus Solostar U-100 Insulin) atorvastatin 10 mg tablet (Lipitor) 10 mg PO DAILY cho lesterol #90 tabs 10/22/24 Unknown Rx carvedilol 25 mg tablet 25 mg PO Q12H #180 tabs 10/13 Unknown Rx cetirizine 10 mg capsule 10 mg PO DAILY #90 caps 10/13 Unknown Rx cholecalciferol (vitamin D3) 1,250 1,250 mcg PO QWEEK #12 caps 10/22/24 Unknown Rx mcg (50,000 unit) capsule duloxetine 60 mg capsule,delayed 60 mg PO BID #180 cap s 10/22/24 Unknown Rx release magnesium oxide 400 mg (241.3 mg 400 mg PO BID #180 ta bs 10/22/24 Unknown Rx magnesium) tablet gabapentin 300 mg capsule 300 mg PO DAILY #28 caps Unknown Rx spironolactone 25 mg tablet 25 mg PO DAILY #30 tabs Unknown Rx pantoprazole 40 mg tablet,delayed 40 mg PO BID #180 ta bs 11/19/24 Unknown Rx release (Protonix) ropinirole 0.5 mg tablet 0.5 mg PO QHS #90 tabs 11/19 Unknown Rx Allergy/AdvReac Type Severity Reaction Status Date / Time simvastatin Allergy Severe Myalgia Verified 11/20/24 14:18 Latex, Natural Rubber Allergy Unknown Rash Verified 11/20/24 14:18 metformin Allergy Other Verified 11/20/24 14:18 adhesive tape AdvReac Severe Rash Verified 11/20/24 14:18 Family History Father Heart disease Myocardial infarction CAD (coronary artery disease) Mother CAD (coronary artery disease) Heart disease Cancer breast Grandmother Colon cancer Daughter Breast cancer Surgical History History of left heart catheterization Hx of appendectomy H/O colectomy History of hysteroscopy Social History household members: family and other details: ex mother in law , ex housing: house current occupational status: disabled 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 Smoking Status: Never smoker second hand exposure: No alcohol intake: never substance use type: does not use what type of physical activity do you participate in: none seatbelt use: always do you feel safe at home: Yes ROS ROS Narrative General: Patient reports fevers past 1 to 2 days HENT: Denies headache, denies stuffy nose, denies sore throat EYES: Denies changes in vision Resp: Denies cough, denies shortness of breath Cardiac: Denies chest pain GI: Reported some midline abdominal pain with a little bit of nausea, does report some constipation chronically : Denies changes in urination Extremity: Denies swelling MSK: Denies weakness, complains of low back pain Neuro: Denies any numbness/tingling Heme: Denies any bleeding or bruising Skin: Denies rashes Psychiatric: No complaints voiced Vital Signs Vital Signs Vital Signs: 11/20/24 14:13 11/20/24 14:18 11/20/24 16:21 Temperature 103.2 F H Temperature Source Oral Pulse Rate 120 H 130 H Respiratory Rate 18 17 Respiratory Effort Normal Non-Labored Respiratory Pattern Normal Blood Pressure 141/72 H 143/73 H Blood Pressure Mean 95 96 Pulse Ox 90 Oxygen Delivery Method Room Air Oxygen Flow Rate (L/min) 11/20/24 16:26 11/20/24 16:26 11/20/24 17:45 Temperature 103.2 F H 103.2 F H Temperature Source Oral Pulse Rate 130 H 131 H Respiratory Rate 17 20 H Respiratory Effort Respiratory Pattern Blood Pressure 143/73 H 118/47 L Blood Pressure Mean 96 70 Pulse Ox 98 97 88 Oxygen Delivery Method Room Air Room Air Oxygen Flow Rate (L/min) 11/20/24 18:00 Temperature 101.6 F H Temperature Source Oral Pulse Rate 126 H Respiratory Rate 28 H Respiratory Effort Respiratory Pattern Blood Pressure 120/75 Blood Pressure Mean 90 Pulse Ox 94 Oxygen Delivery Method Nasal Cannula Oxygen Flow Rate (L/min) 2 Weight Weight: 125 kg Body Mass Index (BMI) 40.6 Physical Exam Narrative General: Alert, oriented HEENT: Atraumatic, normocephalic Eyes: Anicteric, normal conjunctiva, extraocular movements grossly intact Neck: Supple Respiratory: Somewhat diminished at the bases, in possibly part of body habitus,normal respiratory effort Cardiovascular: Low-grade sinus tachycardia GI: Soft, mild tenderness in primarily the lower abdomen with no focal or localizing pain, nondistended Extremities: No significant pitting edema Musculoskeletal: Moving all extremities, able to lift both legs up in the air with equal strength without pain, no pain on palpation of the lower spine, no reports of sensation differences Neuro: No overt focal neurological deficits Skin: Does have some chronic changes in lower extremities Psych: Cooperative Results Lab / Micro Data 11/20/24 14:33 11/20/24 14:33 Labs: Laboratory Results - last 24 hr 11/20/24 14:33: WBC 9.6, RBC 4.29, Hgb 12.6, Hct 38.8, MCV 90.4, MCH 29.4, MCHC 32.5, RDW Std Deviation 46.5 H, RDW Coeff of Tatum 14.2, Plt Count 148 L, MPV 10.4, Immature Gran % (Auto) 0.700, Neut % (Auto) 89.4 H, Lymph % (Auto) 5.2 L, [place] % (Auto) 4.1, Eos % (Auto) 0.4, Baso % (Auto) 0.2, Absolute Neuts (auto) 8.5 H, Absolute Lymphs (auto) 0.50 L, Nucleated RBC % 0, PT 13.6, INR 1.0, APTT 22.6 L, Sodium 132 L, Potassium 4.5, Chloride 100, Carbon Dioxide 24.5, Anion Gap 8, BUN 10, Creatinine 0.83, Estim Creat Clear Calc 104.64, Est GFR (MDRD) Non-Af 81, BUN/Creatinine Ratio 12.3, Glucose 263 H, Lactic Acid 2.4 H*, Calcium9.3, Total Bilirubin 0.37, AST 24, ALT 26, Alkaline Phosphatase 175 H, Total Protein 7.1, Albumin 3.7, Globulin 3.4, Albumin/Globulin Ratio 1.1, Urine Color Straw, Urine Clarity Clear, Urine pH 6.0, Ur Specific Titus 1.015, Urine Protein Negative, Urine Glucose (UA) 1000 H, Urine Ketones Negative, Urine Occult Blood Negative, Urine Nitrite Negative, Urine Bilirubin Negative, Urine Urobilinogen Normal, Ur Leukocyte Esterase Negative, Urine RBC 0-5 SEEN, Urine WBC 0-5 SEEN, Ur Squamous Epith Cells 5-10 SEEN, Urine Bacteria RARE, Urine Mucus 0 SEEN Micro: Microbiology 11/20/24 14:33 Mucosa - Nose SARS-CoV-2, Influenza & RSV (PCR) - Final Imaging Radiology Impression Brain CT 11/20/24 14:29 IMPRESSION: No acute intracranial findings. Trace mucoperiosteal thickening, left maxillary sinus. Reading Location: [facility] Lumbar Spine CT 11/20/24 14:29 IMPRESSION: No acute osseous abnormalities involving the lumbar spine. Severe degenerative disc disease at L5-S1. Mild spondylosis. Reading Location: [facility] Chest X-Ray 11/20/24 15:10 IMPRESSION: No Acute Findings. Reading Location: [facility] Abdomen/Pelvis CT 11/20/24 16:54 IMPRESSION: No acute intra-abdominal process. Trace pericardial effusion. Reading Location: [id number] Assessment & Plan Assessment/Plan (1) Sepsis: PLAN: Plan # Sepsis of unclear source -Patient tachycardic and febrile with an elevated lactic acid of 2.4 - UA does not appear infectious -Lumbar spine shows degenerative changes but no acute abnormalities -Patient does not think she can have MRI with her current pacemaker/defibrillator -Chest x-ray no acute process -Patient given 2 L of IV fluids in the ED given her cardiac history instead of the full 30 cc/kg given history of ischemic cardiomyopathy -CT abdomen and pelvis with distended urinary bladder, trace pericardial effusion, no other acute abnormality -Continue broad-spectrum antibiotics -Patient pancultured -It is certainly possible that patient has a discitis or lumbar pathology however without any focal deficits/neurological deficits do not suspect epiduralabscess or neurologic compromise -If source not revealed or if it is determined that patient likely has discitis will ultimately need to consider ID consult as further culture and sensitivity data arises - Will check ESR, CRP, Pro-Jamal and repeat these in the a.m. to assess for antibiotic efficacy #Lower back pain -Lumbar spine with no acute process, noted severe degenerative disc disease at L5-S1 - Patient with no alarm signs or symptoms or significant exam findings suggestive of cord compression -Workup as above - If low back pain does not improve and there is low suspicion as this being source of her sepsis may need to consider pain management or spine consults -Pain control -Lidocaine patch - PT/OT # History of ischemic cardiomyopathy -Follows with cardiology on an outpatient basis -Most recent echo 05/26/2024 with moderate global hypokinesis of left ventricle and EF of 40% -Monitor fluid status closely -Daily weights, I's and O's -DASH diet -Will decrease patient's Coreg given she is septic and want to avoid hypotension, Coreg and Entresto with parameters - Will hold spironolactone while assessing patient's hemodynamic status in this acute period and add back as tolerated #Morbid obesity -BMI documented as 40.7 kg/m? at time of admission -Complicates treatment, prognosis, outcomes -Recommend weight loss and lifestyle changes #Type 2 diabetes mellitus -Glucose checks and sliding scale insulin - Awaiting updated home medication dose for her long-acting, appears she may have filled 40 twice daily most recently, will start lower than that to avoid hypoglycemia and uptitrate based on glucoses and once this is confirmed #GERD -Continue PPI # Restless leg syndrome -continue patient's home medication regimen #DVT ppx: Lovenox subcu Mariah Brewer MD Time spent in the patient's overall evaluation,decision-making process, review of diagnostic data, adjustment of management, discussion with other providers, nursing nursing and ancillary staff involved in patient's care documentation, 62Minutes Charges/Coding Visit Charges Inpatient E&M: 25732 Init Hosp L3 11/20/241902 <Electronically signed by Mariah Brewer MD> Cosigner Signature (if applicable): CC: Dr. Lisseth Peñaloza MD; Dr. Mariah Brewer MD~ Signed ADDENDUM by Dr. Mariah Brewer MD on 11/20/24 at 1916 Addendum Pt O2 sat went to 88% after initial evaluation, will add on viral panels though pt has been denying SOB. Xray earlier w/ no acute findings 11/20/241915<Electronically signed by Mariah Brewer MD> Cosigner Signature (if applicable): cc: Dr. Lisseth Peñaloza MD; Dr. Mariah Brewer MD ~* Signed [facility] Work Phone: [phone]) 674-866205-09-2025 Progress note Author Mariah Brewer [facility] Note Date/Time November 20, 2024 7:14pm [facility] Medical Records Department [address] [place] [address] Progress Note - Hospitalist 11/20/24 1806 MR#: [id number] Acct: [id number] Name: MICHELLE JULES Rep #:[id number] : 1965 59 From: Mariah Brewer MD PCP: Dr. Lisseth Peñaloza MD Status:ADM IN Location: ICU ICU01-1 Sepsis Attestation Sepsis Alert: Yes Sepsis Attestation: Agree w/Sepsis Date exam was performed: 11/20/24 Time exam was performed: 16:30 Possible Source of Sepsis: Bone/joint and Unknown Sepsis Organ Dysfunction Criteria Present: Lactic Acid > 2 mmol/L Supportive Findings: With tachycardia and febrile and new O2 requirement Fluid Resuscitation Fluid resuscitation indicated?: Yes Fluid Resuscitation ordered: Lesser volume fluid bolus ordered Amount of fluid ordered: 2,000 Reason for lesser fluid bolus:: Other (Patient with history of ischemic cardiomyopathy, additionally not presently hypotensive) Sepsis Note Date exam was performed: 11/20/24 Time exam was performed: 18:00 Sepsis Attestation: Sepsis re-evaluation was performed Response to fluids: Fluid responsive hypotension (Pt was not hypotensive) 11/20/241912 <Electronically signed by Mariah Brewer MD> Cosigner Signature (if applicable): CC: ~ Signed ADDENDUM by Dr. Mariah Brewer MD on 11/20/24 at 1913 Addendum Did get placed on 2L of O2 for a pulse ox of 88% after my first evaluation but has denied any shortness of breath 11/20/241913<Electronically signed by Mariah Brewer MD> Cosigner Signature (if applicable): cc: ~* Signed [facility] Work Phone: 1(233) 428-419605-09-2025 Radiology Diagnostic study note [facility] Imaging Services [address] [place] [address] [id number] Abdomen/Pelvis W IV Cont ONLY MR#: [id number] Acct: [id number] Name: MICHELLE JULES Rep #: [id number] : 1965 F 59 From: Carmen Denton MD PCP: Dr. Lisseth Peñaloza MD Status: ADM IN Study:Abdomen/Pelvis W IV Cont ONLY Date of E xam: 11/20/24 Exam# [id number] Ordering Dr: Naomi Saul DO PROCEDURE: ABDOMEN/PELVIS W IV CONT ONLY 11/20/2024 REASON FOR EXAM: ABDOMINAL PAIN AND FEVER TECHNIQUE: Abdomen and pelvis CT with intravenous contrast. Coronal and Sagittal reconstruction series were provided. CONTRAST: 100 mL of Isovue 370 One or more dose reduction techniques were used (e.g., Automated exposure control, adjustment of the mA and/or kV according to patient size, use of iterative reconstruction technique. RADIATION DOSE SUMMARY: DLP: 1356 mGycm COMPARISON: None FINDINGS: Trace bibasilar pleural effusions. Bibasilar subsegmental atelectasis. Extensive coronary atherosclerosis/stents. Trace pericardial effusion. The liver, spleen, both kidneys, and both adrenal glands demonstrate no acute findings. Fatty atrophy of the pancreas The gallbladder is unremarkable. The stomach is unremarkable. The aorta and IVC demonstrate no acute findings. There is no free air, free fluid or intestinal obstruction. The small bowel loops are not dilated. The appendix is not clearly identified, although there are no secondary signs ofappendicitis. No bowel obstruction. The pelvic structures are intact. There is no solid pelvic mass. The urinary bladder is distended. Visualized osseous structures demonstrate no acute abnormality. CT/Abdomen/Pelvis W IV Cont ONLY IMPRESSION: No acute intra-abdominal process. Trace pericardial effusion. Reading Location: [facility] CC: Dr. Lisseth Peñaloza MD; Dr. Javy Saul DO ~ Post Graduate Intern: Signed [facility]05-09-2025 Radiology Diagnostic study note [facility] Imaging Services [address] [place] [address] [id number] Spine Lumbar without Contrast MR#: [id number] Acct: [id number] Name: MICHELLE JULES Rep #: [id number] : 1965 F 59 From: Vidhya Hughes MD PCP: Dr. Lisseth Peñaloza MD Status: REG ER Study:Spine Lumbar without Contrast Date of E xam: 11/20/24 Exam# [id number] Ordering Dr: Naomi Saul DO PROCEDURE: SPINE LUMBAR WITHOUT CONTRAST 11/20/2024 REASON FOR EXAM: PAIN INJURY TECHNIQUE: Lumbar spine CT without contrast. Contiguous axial scans of 2.5 mm slice thicknesses. Sagittal and coronal reconstruction images wereobtained. One or more dose reduction techniques were used (e.g., automated exposure control, adjustment of mAand/or kv according to patient size, use of iterative reconstruction technique). COMPARISON: None. RADIATION DOSE SUMMARY: DLP: 1956.53 mGycm FINDINGS: Vertebra: Vertebral bodies normal in height. Mild multilevel spondylosis. Alignment: No scoliosis. No spondylolisthesis. Discs: Marked narrowing of the L5-S1 interspace Foramens: Unremarkable. Facets: Unremarkable. Soft tissues: Prevertebral soft tissues are normal. CT/Spine Lumbar without Contrast IMPRESSION: No acute osseous abnormalities involving the lumbar spine. Severe degenerative disc disease at L5-S1. Mild spondylosis. Reading Location: [facility] CC: Dr. Lisseth Peñaloza MD; Dr. Javy Saul DO ~ Post Graduate Intern: Signed [facility]05-09-2025 Radiology Diagnostic study note [facility] Imaging Services [address] [place] [address] Brain/Head without Contrast MR#: [id number] Acct: [id number] Name: MICHELLE JULES Rep #: [id number] : 1965 F 59 From: Vidhya Hughes MD PCP: Dr. Lisseth Peñaloza MD Status: REG ER Study:Brain/Head without Contrast Date of Exa m: 11/20/24 Exam# [id number] Ordering Dr: Naomi Saul DO PROCEDURE: BRAIN/HEAD WITHOUT CONTRAST 11/20/2024 REASON FOR EXAM: AMS FALL. HISTORY OF NEUROPATHY. TYPE 2 DIABETES. TECHNIQUE: Contiguous axial scans of 3.75 mm slice thicknesses with sagittal and coronal reconstruction images. One or more dose reduction techniques were utilized (e.g., automated exposure control, adjustment of mA and/or kv according to patient size, use of iterative reconstruction technique). RADIATION DOSE SUMMARY: DLP: 863.60 mGycm COMPARISON: NO RELEVANT PRIOR. FINDINGS: Cerebrum: No intraparenchymal hemorrhage. No abnormal areas of encephalomalacia.No mass effect or midline shift. Flowers-white matter differentiation is normal. Ventricles and cisterns: Appropriate size for patient's age. Extra-axial fluid: Unremarkable. Posterior fossa: Unremarkable cerebellum. No abnormalities involving the brainstem. Paranasal sinuses: Mild mucoperiosteal thickening, left maxillary sinus. Vasculature: Unremarkable. Mastoid air cells: unremarkable. Calvarium: Unremarkable. Soft tissues: Unremarkable.. Artifact from dental enhancements. Other: Mild leftward deviation of the nasal septum. CT/Brain/Head without Contrast IMPRESSION: No acute intracranial findings. Trace mucoperiosteal thickening, left maxillary sinus. Reading Location: [facility] CC: Dr. Lisseth Peñaloza MD; Dr. Javy Saul DO ~ Post Graduate Intern: Signed [facility]05-09-2025 Radiology Diagnostic study note [facility] Imaging Services [address] [place] [address] Chest 1 View (Portable) MR#: [id number] Acct: [id number] Name: MICHELLE JULES Rep #: [id number] : 1965 F 59 From: Vidhya Hughes MD PCP: Dr. Lisseth Peñaloza MD Status: [facility] ER Study:Chest 1 View (Portable) Date of Exam: 11/20/24 Exam# [id number] Ordering Dr: Naomi Saul DO PROCEDURE: CHEST 1 VIEW (PORTABLE) 11/20/2024 REASON FOR EXAM: FEVER TECHNIQUE: Frontal view of the chest. COMPARISON: 01/12/2024 CHEST PA AND LATERAL FINDINGS: Lungs: Lungs clear of pneumonia and congestion. Pleura: No pleural effusions, thickening, or pneumothorax. Heart: Normal in size and configuration. Mediastinum/Delilah: Unremarkable. Great vessels: Unremarkable. Bones/soft tissues: Cardiac monitoring leads overlie the chest wall. Cardiac pacer generator and leads present. RAD/Chest 1 View (Portable) IMPRESSION: No Acute Findings. Reading Location: [facility] CC: Dr. Lisseth Peñaloza MD; Dr. Javy Saul DO ~ Post Graduate Intern: Signed [facility]02-24-2025 Evaluation note* Diagnosis Onset Date Resolution Status Admit Date Anxiety acute September 07, 2024 11:11am GERD (gastroesophageal reflux disease) acute September 07 11:11am RLS (restless legs syndrome) acute September 07 11:11am Vitamin D deficiency acute 2024 11:11am HTN (hypertension) chronic Februa 2024 11:11am Type 2 diabetes mellitus with diabetic neuropathy, unspecified chronic September 07 11:11am Cardiomyopathy, ischemic inactive September 07, 2024 11:11am PAXTON (obstructive sleep apnea) noneactive September 07 11:11am HTN (hypertension) chronic October 15, 2024 10:04am Hyperlipidemia chronic October 15, 2024 10:04am Neuropathy chronic October 15 10:04am Obesity chronic October 15 10:04am Type 2 diabetes mellitus with diabetic neuropathy, unspecified chronic October 15, 2024 10:04am Vaginal yeast infection chronic A pril 2024 10:04am Anxiety acute October 19 10:11am GERD (gastroesophageal reflux disease) acute October 19, 2024 10:11am RLS (restless legs syndrome) acute October 19, 2024 10:11am HTN (hypertension) chronic October 19, 2024 10:11am Type 2 diabetes mellitus with diabetic neuropathy, unspecified chronic October 19, 2024 10:11am Cardiomyopathy, ischemic inactive October 19, 2024 10:11am PAXTON (obstructive sleep apnea) noneactive October 19, 2024 10:11am Nonischemic dilated cardiomyopathy acute November 04, 2024 10:04am HTN (hypertension) chronic November 04, 2024 10:04am History of placement of internal cardiac defibrillator September 03, 2013 inactive November 04, 2024 10:04am Nonischemic dilated cardiomyopathy acute November 09, 2024 10:07am Implantable cardioverter-defibrillato r (ICD) in situ inactive November 09, 2024 10:07am Acute febrile illness resolved November 20, 2024 6:37pm Sepsis resolved November 20, 2024 6:37pm Shock resolved November 20, 2024 6:37pm Bacteremia inactive November 20, 2024 6:37pm Cardiomyopathy, ischemic inactive November 20, 2024 6:37pm Diabetes mellitus inactive November 6:37pm History of placement of internal cardiac defibrillator September 03, 2013 inactive November 20 6:37pm Low back pain inactive November 20 6:37pm MRSA bacteremia inactive November 20, 2024 6:37pm Nonischemic cardiomyopathy inactive November 20, 2024 6:37pm [facility] Work Phone: 1(108) 835-234702-24-2025 Evaluation note* Diagnosis Onset Date Resolution Status Admit Date Anxiety acute September 07, 2024 11:11am GERD (gastroesophageal reflux disease) acute September 07 11:11am RLS (restless legs syndrome) acute September 07 11:11am Vitamin D deficiency acute ua2024 11:11am HTN (hypertension) chronic 2024 11:11am Type 2 diabetes mellitus with diabetic neuropathy, unspecified chronic September 07 11:11am Cardiomyopathy, ischemic inactive September 07, 2024 11:11am PAXTON (obstructive sleep apnea) noneactive September 07 11:11am HTN (hypertension) chronic October 15, 2024 10:04am Hyperlipidemia chronic October 15, 2024 10:04am Neuropathy chronic October 15 10:04am Obesity chronic October 15 10:04am Type 2 diabetes mellitus with diabetic neuropathy, unspecified chronic October 15, 2024 10:04am Vaginal yeast infection chronic A pril 2024 10:04am Anxiety acute October 19 10:11am GERD (gastroesophageal reflux disease) acute October 19, 2024 10:11am RLS (restless legs syndrome) acute October 19, 2024 10:11am HTN (hypertension) chronic October 19, 2024 10:11am Type 2 diabetes mellitus with diabetic neuropathy, unspecified chronic October 19, 2024 10:11am Cardiomyopathy, ischemic inactive October 19, 2024 10:11am PAXTON (obstructive sleep apnea) noneactive October 19, 2024 10:11am Nonischemic dilated cardiomyopathy acute November 04, 2024 10:04am HTN (hypertension) chronic November 04, 2024 10:04am History of placement of internal cardiac defibrillator September 03, 2013 inactive November 04, 2024 10:04am Nonischemic dilated cardiomyopathy acute November 09, 2024 10:07am Implantable cardioverter-defibrillato r (ICD) in situ inactive November 09, 2024 10:07am MRSA bacteremia acute November 20, 2024 6:37pm Acute febrile illness resolved November 20, 2024 6:37pm Sepsis resolved November 20, 2024 6:37pm Shock resolved November 20, 2024 6:37pm Bacteremia inactive November 20, 2024 6:37pm Cardiomyopathy, ischemic inactive November 20, 2024 6:37pm Diabetes mellitus inactive November 6:37pm History of placement of internal cardiac defibrillator September 03, 2013 inactive November 20 6:37pm Low back pain inactive November 20 6:37pm Nonischemic cardiomyopathy inactive November 20, 2024 6:37pm MRSA bacteremia acute December 09, 2024 11:01am [facility] Work Phone: 1(152) 802-723702-24-2025 Evaluation note* Diagnosis Onset Date Resolution Status Admit Date Anxiety acute September 07, 2024 11:11am GERD (gastroesophageal reflux disease) acute September 07 11:11am RLS (restless legs syndrome) acute September 07 11:11am Vitamin D deficiency acute 2024 11:11am HTN (hypertension) chronic 2024 11:11am Type 2 diabetes mellitus with diabetic neuropathy, unspecified chronic September 07 11:11am Cardiomyopathy, ischemic inactive September 07, 2024 11:11am PAXTON (obstructive sleep apnea) noneactive September 07 11:11am HTN (hypertension) chronic October 15, 2024 10:04am Hyperlipidemia chronic October 15, 2024 10:04am Neuropathy chronic October 15 10:04am Obesity chronic October 15 10:04am Type 2 diabetes mellitus with diabetic neuropathy, unspecified chronic October 15, 2024 10:04am Vaginal yeast infection chronic A pri2024 10:04am Anxiety acute October 19 10:11am GERD (gastroesophageal reflux disease) acute October 19, 2024 10:11am RLS (restless legs syndrome) acute October 19, 2024 10:11am HTN (hypertension) chronic October 19, 2024 10:11am Type 2 diabetes mellitus with diabetic neuropathy, unspecified chronic October 19, 2024 10:11am Cardiomyopathy, ischemic inactive October 19, 2024 10:11am PAXTON (obstructive sleep apnea) noneactive October 19, 2024 10:11am Nonischemic dilated cardiomyopathy acute November 04, 2024 10:04am HTN (hypertension) chronic November 04, 2024 10:04am History of placement of internal cardiac defibrillator September 03, 2013 inactive November 04, 2024 10:04am Nonischemic dilated cardiomyopathy acute November 09, 2024 10:07am Implantable cardioverter-defibrillato r (ICD) in situ inactive November 09, 2024 10:07am MRSA bacteremia acute November 20, 2024 6:37pm Acute febrile illness resolved November 20, 2024 6:37pm Sepsis resolved November 20, 2024 6:37pm Shock resolved November 20, 2024 6:37pm Bacteremia inactive November 20, 2024 6:37pm Cardiomyopathy, ischemic inactive November 20, 2024 6:37pm Diabetes mellitus inactive November 6:37pm History of placement of internal cardiac defibrillator September 03, 2013 inactive November 20 6:37pm Low back pain inactive November 20 6:37pm Nonischemic cardiomyopathy inactive November 20, 2024 6:37pm MRSA bacteremia acute December 09, 2024 11:01am HTN (hypertension) chronic December 102024 10:21am Hyperlipidemia chronic December 10, 2024 10:21am Obesity chronic December 10, 2024 10:21am Type 2 diabetes mellitus with diabetic neuropathy, unspecified chronic December 10, 2024 10:21am [facility] Work Phone: 1(849) 306-752601-22-2025 Evaluation note* Diagnosis Onset Date Resolution Status Admit Date Anxiety acute August 05, 2024 2:11pm Cardiomyopathy, ischemic acute August 05, 2024 2:11pm GERD (gastroesophageal reflux disease) acute August 05 2:11pm RLS (restless legs syndrome) acute August 05 2:11pm Vitamin D deficiency acute Rishi helena 2024 2:11pm HTN (hypertension) chronic y 2024 2:11pm Type 2 diabetes mellitus with diabetic neuropathy, unspecified chronic August 05 2:11pm PAXTON (obstructive sleep apnea) noneactive August 05 2:11pm Encounter for screening for malignant neoplasm of colon noneactive August 05 2:11pm Immunization due noneactive August 05, 2024 2:11pm Establishing care with new doctor, encounter for noneactive Juluar y 2024 2:11pm Screening for malignant neoplasm of cervix noneactive August 05, 2024 2:11pm Screening for breast cancer noneactive August 05 2:11pm Anxiety acute September 07, 2024 11:11am Cardiomyopathy, ischemic acute September 07, 2024 11:11am GERD (gastroesophageal reflux disease) acute September 07, 025 11:11am RLS (restless legs syndrome) acute September 07, 025 11:11am Vitamin D deficiency acute ua2024 11:11am HTN (hypertension) chronic 2024 11:11am Type 2 diabetes mellitus with diabetic neuropathy, unspecified chronic September 07, 025 11:11am PAXTON (obstructive sleep apnea) noneactive September 07 11:11am HTN (hypertension) chronic October 15, 2024 10:04am Hyperlipidemia chronic October 15, 2024 10:04am Neuropathy chronic October 15 10:04am Obesity chronic October 15 10:04am Type 2 diabetes mellitus with diabetic neuropathy, unspecified chronic October 15, 2024 10:04am Vaginal yeast infection chronic A pril 2024 10:04am Anxiety acute October 19 10:11am Cardiomyopathy, ischemic acute October 19, 2024 10:11am GERD (gastroesophageal reflux disease) acute October 19, 2024 10:11am RLS (restless legs syndrome) acute October 19, 2024 10:11am HTN (hypertension) chronic October 19, 2024 10:11am Type 2 diabetes mellitus with diabetic neuropathy, unspecified chronic October 19, 2024 10:11am PAXTON (obstructive sleep apnea) noneactive October 19, 2024 10:11am History of placement of internal cardiac defibrillator September 03, 2013 acute November 04, 2024 10:04am Nonischemic dilated cardiomyopathy acute November 04, 2024 10:04am HTN (hypertension) chronic November 04, 2024 10:04am Nonischemic dilated cardiomyopathy acute November 09, 2024 10:07am Implantable cardioverter-defibrillato r (ICD) in situ inactive November 09, 2024 10:07am Acute febrile illness acute November 20, 2024 4:25pm Cardiomyopathy, ischemic acute November 20, 2024 4:25pm Low back pain acute November 20 4:25pm Sepsis acute November 20, 2024 4:25[facility] Work Phone: 1(572) 400-107301-22-2025 Evaluation note* Diagnosis Onset Date Resolution Status Admit Date Anxiety acute August 05, 2024 2:11pm Cardiomyopathy, ischemic acute August 05, 2024 2:11pm GERD (gastroesophageal reflux disease) acute August 05 2:11pm RLS (restless legs syndrome) acute August 05 2:11pm Vitamin D deficiency acute Rishi helena 2024 2:11pm HTN (hypertension) chronic Januar y 2024 2:11pm Type 2 diabetes mellitus with diabetic neuropathy, unspecified chronic August 05 2:11pm PAXTON (obstructive sleep apnea) noneactive August 05 2:11pm Encounter for screening for malignant neoplasm of colon noneactive August 05 2:11pm Immunization due noneactive August 05, 2024 2:11pm Establishing care with new doctor, encounter for noneactive r y 2024 2:11pm Screening for malignant neoplasm of cervix noneactive August 05, 2024 2:11pm Screening for breast cancer noneactive August 05 2:11pm Anxiety acute September 07, 2024 11:11am Cardiomyopathy, ischemic acute September 07, 2024 11:11am GERD (gastroesophageal reflux disease) acute September 07, 025 11:11am RLS (restless legs syndrome) acute September 07, 2 025 11:11am Vitamin D deficiency acute 2024 11:11am HTN (hypertension) chronic ua 2024 11:11am Type 2 diabetes mellitus with diabetic neuropathy, unspecified chronic September 07, 2 025 11:11am PAXTON (obstructive sleep apnea) noneactive September 07, 2 025 11:11am HTN (hypertension) chronic October 15, 2024 10:04am Hyperlipidemia chronic October 15, 2024 10:04am Neuropathy chronic October 15 10:04am Obesity chronic October 15 10:04am Type 2 diabetes mellitus with diabetic neuropathy, unspecified chronic October 15, 2024 10:04am Vaginal yeast infection chronic A pril 2024 10:04am Anxiety acute October 19 10:11am Cardiomyopathy, ischemic acute October 19, 2024 10:11am GERD (gastroesophageal reflux disease) acute October 19, 2024 10:11am RLS (restless legs syndrome) acute October 19, 2024 10:11am HTN (hypertension) chronic October 19, 2024 10:11am Type 2 diabetes mellitus with diabetic neuropathy, unspecified chronic October 19, 2024 10:11am PAXTON (obstructive sleep apnea) noneactive October 19, 2024 10:11am History of placement of internal cardiac defibrillator September 03, 2013 acute November 04, 2024 10:04am Nonischemic dilated cardiomyopathy acute November 04, 2024 10:04am HTN (hypertension) chronic November 04, 2024 10:04am Nonischemic dilated cardiomyopathy acute November 09, 2024 10:07am Implantable cardioverter-defibrillato r (ICD) in situ inactive November 09, 2024 10:07am Acute febrile illness acute November 20, 2024 6:37pm Bacteremia acute November 20, 2024 6:37pm Cardiomyopathy, ischemic acute November 20, 2024 6:37pm Diabetes mellitus acute November 6:37pm History of placement of internal cardiac defibrillator September 03, 2013 acute November 20 6:37pm Low back pain acute November 20 6:37pm MRSA bacteremia acute November 20, 2024 6:37pm Nonischemic cardiomyopathy acute November 20, 2024 6:37pm Sepsis acute November 20, 2024 6:37pm Shock acute November 20, 2024 6:37pm [facility] Work Phone: 1(757) 232-187010-25-2024 NoteHNO ID: [id number] Author: JEANIE MURPHY RN Service: ? Author Type: Registered Nurse Type: Progress Notes Filed: 05/08/2024 15:52 Note Text: PRIMARY CARE COORDINATION DISCHARGE Patient has been identified by name and date of : Yes Patient discharged from Primary Care Coordination: YES Active Goals - Current status as of 05/08/2024 at 3:45 PM Most Recent Blood Pressure < 130/80 125/78 (02/26/2024) Confirm medication adherence of all prescribed medications and uses them correctly Hemoglobin A1C < 7 10.2 (01/29/2024) LDL at or below 100 mg/dL or on a high statin Goals met Patient no longer CFM patient Goals not met No longer CFM patient Patient knowledgeable and confident in contacting Health Care Providers for questions or concerns: Not applicable Reinforced with patient and/or caregiver that Primary Care Coordination may be reinitiated if a change in status warrants navigation readmission: Not applicable Discussed with: Patient no longer CFM patient What was the Focus/Challenges addressed in Care Coordination? Education on Chronic Disease Management Care Gaps Appropriate level of care options - Utilization Resources Disposition: Follow up with PCP Care Team Tab - End: YES Patient no longer CFM patient. Discharged form Care Coordination Jeanie Murphy [facility]10-25-2024 History of Present illness Narrative* Jeanie Murphy, RN - 05/08/2024 3:45 PM EDT PRIMARY CARE COORDINATION DISCHARGE Patient has been identified by name and date of : Yes Patient discharged from Primary Care Coordination: YES Active Goals - Current status as of 05/08/2024 at 3:45 PM Most Recent Blood Pressure < 130/80 125/78 (02/26/2024) Confirm medication adherence of all prescribed medications and uses them correctly Hemoglobin A1C < 7 10.2 (01/29/2024) LDL at or below 100 mg/dL or on a high statin Goals met Patient no longer CFM patient Goals not met No longer CFM patient Patient knowledgeable and confident in contacting Health Care Providers for questions or concerns: Not applicable Reinforced with patient and/or caregiver that Primary Care Coordination may be reinitiated if a change in status warrants navigation readmission: Not applicable Discussed with: Patient no longer CFM patient What was the Focus/Challenges addressed in Care Coordination? Education on Chronic Disease Management Care Gaps Appropriate level of care options - Utilization Resources Disposition: Follow up with PCP Care Team Tab - End: YES Patient no longer CFM patient. Discharged form Care Coordination Jeanie Murphy RN documented [facility] encounterA[facility] NotePatient Outreach (AGACM) MICHELLE [id number]) 1965 F Date Time Provider Department 05/08/24 JEANIE MURPHY [facility] During your visit today, we recorded the following information about you: Jeanie Murphy RN 05/08/2024 3:52 PM Signed PRIMARY CARE COORDINATION DISCHARGE Patient has been identified by name and date of : Yes Patient discharged from Primary Care Coordination: YES Active Goals - Current status as of 05/08/2024 at 3:45 PM Most Recent Blood Pressure < 130/80 125/78 (02/26/2024) Confirm medication adherence of all prescribed medications and uses them correctly Hemoglobin A1C < 7 10.2 (01/29/2024) LDL at or below 100 mg/dL or on a high statin Goals met Patient no longer CFM patient Goals not met No longer CFM patient Patient knowledgeable and confident in contacting Health Care Providers for questions or concerns: Not applicable Reinforced with patient and/or caregiver that Primary Care Coordination may be reinitiated if a change in status warrants navigation readmission: Not applicable Discussed with: Patient no longer CFM patient What was the Focus/Challenges addressed in Care Coordination? Education on Chronic Disease Management Care Gaps Appropriate level of care options - Utilization Resources Disposition: Follow up with PCP Care Team Tab - End: YES Patient no longer CFM patient. 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 - atorvastatin (LIPITOR) 10 mg tablet Take 1 tablet by mouth once daily. - spironolactone (ALDACTONE) 25 mg tablet Take 1 tablet by mouth once daily. - furosemide (LASIX) 40 mg tablet Take 1 tablet by mouth every afternoon. - DULoxetine (CYMBALTA) 60 mg capsule Take 1 capsule by mouth two times a day. - dulaglutide (TRULICITY) 1.5 mg/0.5 mL pen injector Inject 1.5 mg subcutaneously one time a week. - Pramipexole 0.75 mg tablet Take 1 tablet by mouth daily at bedtime. - aspirin, enteric coated (ECOTRIN LOW STRENGTH) 81 mg EC tablet Take 1 tablet by mouth once daily. - potassium chloride ER (KLOR-CON) 20 mEq tablet - insulin lispro (HUMALOG KWIKPEN) 100 unit/mL INJECT 20 UNITS SUBCUTANEOUSLY THREE TIMES A DAY BEFORE MEALS - pantoprazole DR (PROTONIX) 40 mg tablet Take 1 tablet by mouth every 12 hours. - glyBURIDE 5 mg tablet Take 2 tablets by mouth daily with breakfast. - insulin glargine U-300 conc (TOUJEO MAX U-300 SOLOSTAR) 300 unit/mL (3 mL) inpn Inject 90 Units subcutaneously every morning. - insulin needles, DISPOSABLE, (PEN NEEDLE) 31 gauge x /16 Use 5 needles per dose. 5 per day for her insulin. - magnesium oxide (MAG-OX) 400 mg (241.3 mg magnesium) tablet Take 1 tablet by mouth two times a day. - ergocalciferol 50,000 unit capsule (VITAMIN D2, DRISDOL) Take 1 capsule by mouth one time a week. - gabapentin (NEURONTIN) 300 mg capsule Take 1 capsule by mouth daily at bedtime for 270 days. - flash glucose sensor (FREESTYLE LANCE 2 SENSOR) kit Use to check blood sugar before meals and at bedtime - Docusate Sodium (STOOL SOFTENER) 100 mg tab Take 1 capsule by mouth twice daily as needed - acetylcyst/dlbymvJ09/levomefol (METAFOLBIC PLUS ORAL) Take by mouth. - cetirizine (ZYRTEC) 10 mg tablet Take 1 tablet by mouth once daily as needed (for itching, sneezing or runny nose). - losartan (COZAAR) 25 mg tablet (Discontinued) Take 1 tablet by mouth once daily. 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 04-10-2024 Telephone encounter Note* Telephone Encounter - Maria A Martinez - 04/10/2024 3:31 PM EDT Patient's insurance no longer covers office. Removing CFM from profile Maria A [facility]09-27-2024 Miscellaneous Notes* Telephone Encounter - Maria A Martinez - 04/10/2024 3:31 PM EDT Patient's insurance no longer covers office. Removing CFM from profile Maria A documented in this encounterAdena [facility]09-25-2024 Telephone encounter Note * Telephone Encounter - Williams Rubin MD - 04/08/2024 6:18 PM EDT Only 1 month refills because patient is overdue on Cr, K, and Lipid panel. BMP and LP ordered. Williams Rubin MD [facility]09-25-2024 Miscellaneous Notes* Telephone Encounter - Williams Rubin MD - 04/08/2024 6:18 PM EDT Only 1 month refills because patient is overdue on Cr, K, and Lipid panel. BMP and LP ordered. Williams Rubin MD * Telephone Encounter - Janet Nassar LPN - 04/07/2024 2:50 PM EDT Pharmacy called requesting the following refill Refill(s) Requested: Requested Prescriptions Pending Prescriptions Disp Refills carvedilol (COREG) 25 mg tablet 60 tablet 0 Sig: Take 1 tablet by mouth two times a day. atorvastatin (LIPITOR) 10 mg tablet 30 tablet 0 Sig: Take 1 tablet by mouth once daily. spironolactone (ALDACTONE) 25 mg tablet 30 tablet 0 Sig: Take 1 tablet by mouth once daily. furosemide (LASIX) 40 mg tablet 28 tablet 0 Sig: Take 1 tablet by mouth every afternoon. ALLERGIES Allergen Reactions Adhesive Tape (Natty* Itching Latex, Natural Rubb* Rash Metformin Other: See Comments Caused arrhythmia issues Seasonal Allergies Itching Simvastatin Other: See Comments myalgia (home) [phone] (cell) Last Office Visit Date: 02/26/2024 Last Distance [facility] Visit: Visit date not found Future Appointment: 04/14/2024 The patients preferred pharmacy has been captured for this encounter? yes Request is for script(s) to be escript to pharmacy. Janet Nassar LPN documented in this encounterAdena [facility]09-24-2024 Telephone encounter Note * Telephone Encounter - Janet Nassar LPN - 04/07/2024 2:50 PM EDT Pharmacy called requesting the following refill Refill(s) Requested: Requested Prescriptions Pending Prescriptions Disp Refills carvedilol (COREG) 25 mg tablet 60 tablet 0 Sig: Take 1 tablet by mouth two times a day. atorvastatin (LIPITOR) 10 mg tablet 30 tablet 0 Sig: Take 1 tablet by mouth once daily. spironolactone (ALDACTONE) 25 mg tablet 30 tablet 0 Sig: Take 1 tablet by mouth once daily. furosemide (LASIX) 40 mg tablet 28 tablet 0 Sig: Take 1 tablet by mouth every afternoon. ALLERGIES Allergen Reactions Adhesive Tape (Natty* Itching Latex, Natural Rubb* Rash Metformin Other: See Comments Caused arrhythmia issues Seasonal Allergies Itching Simvastatin Other: See Comments myalgia (home) [phone] (cell) Last Office Visit Date: 02/26/2024 Last [facility] Visit: Visit date not found Future Appointment: 04/14/2024 The patients preferred pharmacy has been captured for this encounter? yes Request is for script(s) to be escript to pharmacy. Janet Nassar LPN [facility]09-20-2024 NoteHNO ID: [id number] Author: JEANIE MURPHY RN Service: ? Author Type: Registered Nurse Type: Progress Notes Filed: 04/03/2024 13:00 Note Text: PRIMARY CARE COORDINATION QUICK NOTE Provider Action/FYI Patient identified by name and date . PCC tried to contact patient for patient outreach. PCC left phone number [phone] for patient to contact PCC. Jeanie Murphy RN April 03, 2024 1:00 [facility]09-20-2024 History of Present illness Narrative* Jeanie Murphy RN - 04/03/2024 12:59 PM EDT PRIMARY CARE COORDINATION QUICK NOTE Provider Action/FYI Patient identified by name and date . PCC tried to contact patient for patient outreach. PCC left phone number [phone] for patient to contact PCC. Jeanie Murphy RN April 03, 2024 1:00 PM documented in this encounterAdena [facility]09-20-2024 Telephone encounter Note * Telephone Encounter - Radha Bradley - 04/03/2024 10:03 AM EDT No Show Documentation Michelle Jules no showed for an appointment on 04.02.24 with Sonia Cr RPh at [facility]. She was scheduled for follow up. I N/A with the patient regarding her missed appointment. Michelle stated the reason that she missed her appointment was because n/a . Resources discussed/offered to patient: n/a No show determined to be fault of patient: N/A This is the patients first no show in the last 12 months. Patient was rescheduled for n/a. Letter mailed : Yes Is this the Third or Fourth No Show? No Radha Bradley April 03, 2024 10:06 AM [facility]09-20-2024 Miscellaneous Notes* Telephone Encounter - Radha Bradley - 04/03/2024 10:03 AM EDT No Show Documentation Michelle Best Jules no showed for an appointment on 04.02.24 with Sonia rC RPh at [facility]. She was scheduled for follow up. I N/A with the patient regarding her missed appointment. Michelle stated the reason that she missed her appointment was because n/a . Resources discussed/offered to patient: n/a No show determined to be fault of patient: N/A This is the patients first no show in the last 12 months. Patient was rescheduled for n/a. Letter mailed : Yes Is this the Third or Fourth No Show? No Radha Bradley April 03, 2024 10:06 AM documented in this encounterAdena [facility]09-20-2024 NotePatient Outreach ([facility]) MICHELLE [id number]) 1965 F Date Time Provider Department 04/03/24 JEANIE MURPHY [facility] During your visit today, we recorded the following information about you: Jeanie Murphy RN 04/03/2024 1:00 PM Signed PRIMARY CARE COORDINATION QUICK NOTE Provider Action/FYI Patient identified by name and date . PCC tried to contact patient for patient outreach. PCC left phone number [phone] for patient to contact PCC. 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 - DULoxetine (CYMBALTA) 60 mg capsule Take 1 capsule by mouth two times a day. - atorvastatin (LIPITOR) 10 mg tablet Take 1 tablet by mouth once daily. - carvedilol (COREG) 25 mg tablet Take 1 tablet by mouth two times a day. - furosemide (LASIX) 40 mg tablet take 1 tablet by mouth daily - dulaglutide (TRULICITY) 1.5 mg/0.5 mL pen injector Inject 1.5 mg subcutaneously one time a week. - Pramipexole 0.75 mg tablet Take 1 tablet by mouth daily at bedtime. - aspirin, enteric coated (ECOTRIN LOW STRENGTH) 81 mg EC tablet Take 1 tablet by mouth once daily. - potassium chloride ER (KLOR-CON) 20 mEq tablet - insulin lispro (HUMALOG KWIKPEN) 100 unit/mL INJECT 20 UNITS SUBCUTANEOUSLY THREE TIMES A DAY BEFORE MEALS - pantoprazole DR (PROTONIX) 40 mg tablet Take 1 tablet by mouth every 12 hours. - glyBURIDE 5 mg tablet Take 2 tablets by mouth daily with breakfast. - insulin glargine U-300 conc (TOUJEO MAX U-300 SOLOSTAR) 300 unit/mL (3 mL) inpn Inject 90 Units subcutaneously every morning. - insulin needles, DISPOSABLE, (PEN NEEDLE) 31 gauge x /16 Use 5 needles per dose. 5 per day for her insulin. - magnesium oxide (MAG-OX) 400 mg (241.3 mg magnesium) tablet Take 1 tablet by mouth two times a day. - ergocalciferol 50,000 unit capsule (VITAMIN D2, DRISDOL) Take 1 capsule by mouth one time a week. - gabapentin (NEURONTIN) 300 mg capsule Take 1 capsule by mouth daily at bedtime for 270 days. - flash glucose sensor (Neonode LANCE 2 SENSOR) kit Use to check blood sugar before meals and at bedtime - Docusate Sodium (STOOL SOFTENER) 100 mg tab Take 1 capsule by mouth twice daily as needed - acetylcyst/ksymroC52/levomefol (METAFOLBIC PLUS ORAL) Take by mouth. - cetirizine (ZYRTEC) 10 mg tablet Take 1 tablet by mouth once daily as needed (for itching, sneezing or runny nose). - losartan (COZAAR) 25 mg tablet (Discontinued) Take 1 tablet by mouth once daily. 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.* Vitamin D deficiency [E55.9] Family history of colon cancer [Z80.0] Cardiomyopathy, nonischemic (HCC) [I42.8] 04/14/2013 Abnormality of gait [R26.9] 05/04/2014 Ganglion cyst of right foot [M67.471] 09/09/2015 Biventricular ICD (implantable cardioverter-def*10/10/2015 Uncontrolled type 2 diabetes mellitus with diab*12/21/2015 Restless leg syndrome [G25.81] 02/09/2016 Peroneal tendinitis [M76.70] 07/12/2016 Pain in joint, ankle and foot [M25.579] 07/12/2016 Nonallergic rhinitis [J31.0] 04/03/2018 Cystocele with prolapse [N81.4] 11/12/2018 Urgency of urination [R39.15] 11/12/2018 Mixed incontinence [N39.46] 11/12/2018 Obesity, Class II, BMI 35-39.9 [E66.9] 01/22/2023 Hyperlipidemia, mixed [E78.2] 05/20/2023 Encounter Status:Closed by JEANIE MURPHY on 04/03/24[facility] 04-02-2024 NoteHNO ID: [id number] Author: SONIA CR RPh Service: ? Author Type: Pharmacist Type: Progress Notes Filed: 04/02/2024 14:41 Note Text: Pt no showed appt with pharmD 04/02/2024. Notifying intensive care anaesthetist to reschedule. Appreciate collaboration. Hemoglobin A1C Date Value Ref Range Status 01/29/2024 10.2 (H) 4.3 - 5.6 % Final Comment: [place] [employer] guidelines indicate that patients with HgbA1c in the range 5.7-6.4% are at increased risk for development of diabetes, and intervention by lifestyle modification may be beneficial. HgbA1c greater or equal to 6.5% is considered diagnostic of diabetes.[facility] 03-21-2024 NoteHNO ID: [id number] Author: SONIA CR RPh Service: ? Author Type: Pharmacist Type: Progress Notes Filed: 03/21/2024 12:05 Note Text: No further adjustments warranted at this time. Appreciate intensive care anaesthetist's f/up on this content. PharmD appt 04/02/2024. Sonia Cr [facility]09-06-2024 NoteHNO ID: [id number] Author: JEANIE MURPHY, RN Service: ? Author Type: Registered Nurse Type: Progress Notes Filed: 03/20/2024 09:03 Note Text: PRIMARY CARE COORDINATION QUICK NOTE Provider Action/FYI Patient identified by name and date . PCC contacted patient's pharmacy and they confirmed 4 Trulicity was dispensed on 02/25/2024 and that patient will be do for more next week. PCC contacted patient and made patient aware she should have one more Trulicity pen per her pharmacy and that they will refill for her next week. Patient said she did receive 4. Patient said she messed up on one of her shots and that is why she was short a trulicity. PCC instructed patient to call [phone] with any questions or concerns. Jeanie Murphy RN March 20, 2024 9:03 [facility]09-05-2024 NoteHNO ID: [id number] Author: SONIA CR RPh Service: ? Author Type: Pharmacist Type: Progress Notes Filed: 03/19/2024 20:54 Note Text: Per pharmacy dispense report, filled 02/25/2024 for pack of 4 (~1 month supply). I'm not fully understanding what the issue with access is. Can we please call pharmacy for clarification. Sonia Cr [facility]09-05-2024 NoteHNO ID: [id number] Author: JEANIE MURPHY RN Service: ? Author Type: Registered Nurse Type: Progress Notes Filed: 03/19/2024 13:29 Note Text: AG PRIMARY CARE COORDINATION FOLLOW-UP NOTE Provider Action/FYI: Patient identified by name and date of : YES Spoke to: patient Summary: Patient called PCC back for PCC follow up. Patient said she has been taking all medications as prescribed except for trulicity. Patient has not taken trulicity since 03/11/2024. Patient said she is still waiting on Pharmacy to get it. Patient said she has been having issues with CGM sensor. [facility] provided patient with Free Style Lance assistance number. Patient said blood sugar weekly average was 287. Patient said she had one low on 02/18/2024, but could not give an exact number. Patient said it was between 50 and 150, but was not sure how low it was. Patient said she is drinking all sugar free drinks. Patient said she is not eating ice cream, cookies, candy or cake. PCC reminded patient her next office visit is 04/02/2024 Health leads screening tool questions performed? No N/A Concerns: Goals: Active Goals - Current status as of 03/19/2024 at 1:13 PM Most Recent Blood Pressure < 130/80 125/78 (02/26/2024) Confirm medication adherence of all prescribed medications and uses them correctly Hemoglobin A1C < 7 10.2 (01/29/2024) LDL at or below 100 mg/dL or on a high statin Health Maintenance Topics with due status: Overdue Topic Date Due Hepatitis B Vaccine Never done Mammogram Screening 12/03/2018 Colorectal Cancer Screening 09/27/2021 Urine Albumin:Creatinine Ratio 01/26/2024 LDL Cholesterol 01/26/2024 Health Maintenance Topics with due status: Due On Topic Date Due Influenza Vaccine 03/15/2024 Health Maintenance Topics with due status: Due Soon Topic Date Due Dilated Retinal Exam 04/05/2024 Pbx Installer plan for next outreach: Will follow-up 3 weeks Signature: Jeanie Murphy RN March 19[facility]09-05-2024 History of Present illness Narrative* Jeanie Murphy RN - 03/19/2024 1:13 PM EDT AG PRIMARY CARE COORDINATION FOLLOW-UP NOTE Provider Action/FYI: Patient identified by name and date of : YES Spoke to: patient Summary: Patient called PCC back for PCC follow up. Patient said she has been taking all medications as prescribed except for trulicity. Patient has not taken trulicity since 03/11/2024. Patient said she is still waiting on Pharmacy to get it. Patient said she has been having issues with CGM sensor. PCC provided patient with Free Style Libreassistance number. Patient said blood sugar weekly average was 287. Patient said she had one low on 02/18/2024, but could not give an exact number. Patient said it was between 50 and 150, but was not sure how low it was. Patient said she is drinking all sugar free drinks. Patient said she is not eating ice cream, cookies, candy or cake. PCC reminded patient her next office visit is 04/02/2024 Health leads screening tool questions performed? No N/A Concerns: Goals: Active Goals - Current status as of 03/19/2024 at 1:13 PM Most Recent Blood Pressure < 130/80 125/78 (02/26/2024) Confirm medication adherence of all prescribed medications and uses them correctly Hemoglobin A1C < 7 10.2 (01/29/2024) LDL at or below 100 mg/dL or on a high statin Health Maintenance Topics with due status: Overdue Topic Date Due Hepatitis B Vaccine Never done Mammogram Screening 12/03/2018 Colorectal Cancer Screening 09/27/2021 Urine Albumin:Creatinine Ratio 01/26/2024 LDL Cholesterol 01/26/2024 Health Maintenance Topics with due status: Due On Topic Date Due Influenza Vaccine 03/15/2024 Health Maintenance Topics with due status: Due Soon Topic Date Due Dilated Retinal Exam 04/05/2024 Pbx Installer plan for next outreach: Will follow-up 3 weeks Signature: Jeanie Murphy RN March 19, 2024 documented in this encounterAdena [facility]09-[facility]-2024 NoteHNO ID: [id number] Author: JEANIE MURPHY RN Service: ? Author Type: Registered Nurse Type: Progress Notes Filed: 03/19/2024 12:52 Note Text: PRIMARY CARE COORDINATION QUICK NOTE Provider Action/FYI Patient identified by name and date . PCC tried to contact patient for patient outreach. PCC left phone number [phone] for patient to contact PCC. Jeanie Murphy RN March 19, 2024 12:51 [facility]09-05-2024 History of Present illness Narrative* Jeanie Murphy RN - 03/19/2024 12:48 PM EDT PRIMARY CARE COORDINATION QUICK NOTE Provider Action/FYI Patient identified by name and date . PCC tried to contact patient for patient outreach. PCC left phone number [phone] for patient to contact PCC. Jeanie Murphy RN March 19, 2024 12:51 PM documented in this encounterAdena [facility]09-05-2024 NotePatient Outreach ([facility]) JARONMICHELLE Best ([id number]) 1965 F Date Time Provider Department 03/19/24 JEANIE MURPHY During your visit today, we recorded the following information about you: Jeanie Murphy RN 03/19/2024 1:29 PM Signed AG PRIMARY CARE COORDINATION FOLLOW-UP NOTE Provider Action/FYI: Patient identified by name and date of : YES Spoke to: patient Summary: Patient called PCC back for PCC follow up. Patient said she has been taking all medications as prescribed except for trulicity. Patient has not taken trulicity since 03/11/2024. Patient said she is still waiting on Pharmacy to get it. Patient said she has been having issues with CGM sensor. PCC provided patient with Free Style Lance assistance number. Patient said blood sugar weekly average was 287. Patient said she had one low on 02/18/2024, but could not give an exact number. Patient said it was between 50 and 150, but was not sure how low it was. Patient said she is drinking all sugar free drinks. Patient said she is not eating ice cream, cookies, candy or cake. PCC reminded patient her next office visit is 04/02/2024 Health leads screening tool questions performed? No N/A Concerns: Goals: Active Goals - Current status as of 03/19/2024 at 1:13 PM Most Recent Blood Pressure < 130/80 125/78 (02/26/2024) Confirm medication adherence of all prescribed medications and uses them correctly Hemoglobin A1C < 7 10.2 (01/29/2024) LDL at or below 100 mg/dL or on a high statin Health Maintenance Topics with due status: Overdue Topic Date Due Hepatitis B Vaccine Never done Mammogram Screening 12/03/2018 Colorectal Cancer Screening 09/27/2021 Urine Albumin:Creatinine Ratio 01/26/2024 LDL Cholesterol 01/26/2024 Health Maintenance Topics with due status: Due On Topic Date Due Influenza Vaccine 03/15/2024 Health Maintenance Topics with due status: Due Soon Topic Date Due Dilated Retinal Exam 04/05/2024 Pbx Installer plan for next outreach: Will follow-up 3 weeks Signature: Jeanie Murphy RN March 19, 2024 Sonia Cr [facility] 03/19/2024 8:54 PM Signed Per pharmacy dispense report, filled 02/25/2024 for pack of 4 (~1 month supply). I'm not fully understanding what the issue with access is. Can we please call pharmacy for clarification. Sonia Cr Jeanie Lugo RN 03/20/2024 9:03 AM Signed PRIMARY CARE COORDINATION QUICK NOTE Provider Action/FYI Patient identified by name and date . PCC contacted patient's pharmacy and they confirmed 4 Trulicity was dispensed on 02/25/2024 and that patient will be do for more next week. PCC contacted patient and made patient aware she should have one more Trulicity pen per her pharmacy and that they will refill for her next week. Patient said she did receive 4. Patient said she messed up on one of her shots and that is why she was short a trulicity. PCC instructed patient to call [phone] with any questions or concerns. Jeanie Murphy RN March 20, 2024 9:03 AM Sonia Cr [facility] 03/21/2024 12:05 PM Signed No further adjustments warranted at this time. Appreciate intensive care anaesthetist's f/up on this content. PharmD appt 04/02/2024. Sonia Cr Sonia Al [facility] 04/02/2024 2:41 PM Signed Pt no showed appt with pharmD 04/02/2024. Notifying intensive care anaesthetist to reschedule. Appreciate collaboration. Hemoglobin A1C Date Value Ref Range Status 01/29/2024 10.2 (H) 4.3 - 5.6 % Final Comment: [employer] guidelines indicate that patients with HgbA1c in the range 5.7-6.4% are at increased risk for development of diabetes, and intervention by lifestyle modification may be beneficial. HgbA1c greater or equal to 6.5% is considered diagnostic of diabetes. Allergies As of Date: 03/19/2024 Noted Allergy Reaction ADHESIVE TAPE (ROSINS) 03/27/2006 9 - Itching LATEX, NATURAL RUBBER 09/09/2018 2 - Rash METFORMIN 07/22/2018 14 - Other: See Comments Comments: Caused arrhythmia issues SEASONAL ALLERGIES 03/01/2023 9 - Itching SIMVASTATIN 11/04/2012 14 - Other: See Comments Comments: myalgia Date Reviewed: 02/26/2024 Reviewed by: Janet Nassar LPN - Fully Assessed Reason for Visit: Flux Tube Attendant Chronic Care [3892] Cmt: [facility] follow up Prescriptions as of 04/02/2024 - spironolactone (ALDACTONE) 25 mg tablet Take 1 tablet by mouth once daily. - DULoxetine (CYMBALTA) 60 mg capsule Take 1 capsule by mouth two times a day. - atorvastatin (LIPITOR) 10 mg tablet Take 1 tablet by mouth once daily. - carvedilol (COREG) 25 mg tablet Take 1 tablet by mouth two times a day. - furosemide (LASIX) 40 mg tablet take 1 tablet by mouth daily - dulaglutide (TRULICITY) 1.5 mg/0.5 mL pen injector Inject 1.5 mg subcutaneously one time a week. - Pramipexole 0.75 mg tablet Take 1 tablet by mouth daily at bedtime. - aspirin, (more content not included)...[facility]09-05-2024 NotePatient Outreach ([facility]) MICHELLE JULES ([id number]) 1965 F Date Time Provider Department 03/19/24 JEANIE MURPHY [facility] During your visit today, we recorded the following information about you: Jeanie Murphy RN 03/19/2024 12:52 PM Signed PRIMARY CARE COORDINATION QUICK NOTE Provider Action/FYI Patient identified by name and date . PCC tried to contact patient for patient outreach. PCC left phone number [phone] for patient to contact PCC. Jeanie Murphy RN March 19, 2024 12:51 PM Allergies As of Date: 03/19/2024 Noted Allergy Reaction ADHESIVE TAPE (ROSINS) 03/27/2006 9 - Itching LATEX, NATURAL RUBBER 09/09/2018 2 - Rash METFORMIN 07/22/2018 14 - Other: See Comments Comments: Caused arrhythmia issues SEASONAL ALLERGIES 03/01/2023 9 - Itching SIMVASTATIN 11/04/2012 14 - Other: See Comments Comments: myalgia Date Reviewed: 02/26/2024 Reviewed by: Janet Nassar LPN - Fully Assessed Reason for Visit: Flux Tube Attendant Chronic Care [0572] Cmt: Attempted PCC follow up Prescriptions as of 03/19/2024 - spironolactone (ALDACTONE) 25 mg tablet Take 1 tablet by mouth once daily. - DULoxetine (CYMBALTA) 60 mg capsule Take 1 capsule by mouth two times a day. - atorvastatin (LIPITOR) 10 mg tablet Take 1 tablet by mouth once daily. - carvedilol (COREG) 25 mg tablet Take 1 tablet by mouth two times a day. - furosemide (LASIX) 40 mg tablet take 1 tablet by mouth daily - dulaglutide (TRULICITY) 1.5 mg/0.5 mL pen injector Inject 1.5 mg subcutaneously one time a week. - Pramipexole 0.75 mg tablet Take 1 tablet by mouth daily at bedtime. - aspirin, enteric coated (ECOTRIN LOW STRENGTH) 81 mg EC tablet Take 1 tablet by mouth once daily. - potassium chloride ER (KLOR-CON) 20 mEq tablet - insulin lispro (HUMALOG KWIKPEN) 100 unit/mL INJECT 20 UNITS SUBCUTANEOUSLY THREE TIMES A DAY BEFORE MEALS - pantoprazole DR (PROTONIX) 40 mg tablet Take 1 tablet by mouth every 12 hours. - glyBURIDE 5 mg tablet Take 2 tablets by mouth daily with breakfast. - insulin glargine U-300 conc (TOUJEO MAX U-300 SOLOSTAR) 300 unit/mL (3 mL) inpn Inject 90 Units subcutaneously every morning. - insulin needles, DISPOSABLE, (PEN NEEDLE) 31 gauge x 5/16 Use 5 needles per dose. 5 per day for her insulin. - magnesium oxide (MAG-OX) 400 mg (241.3 mg magnesium) tablet Take 1 tablet by mouth two times a day. - ergocalciferol 50,000 unit capsule (VITAMIN D2, DRISDOL) Take 1 capsule by mouth one time a week. - gabapentin (NEURONTIN) 300 mg capsule Take 1 capsule by mouth daily at bedtime for 270 days. - flash glucose sensor (FREESTYLE LANCE 2 SENSOR) kit Use to check blood sugar before meals and at bedtime - Docusate Sodium (STOOL SOFTENER) 100 mg tab Take 1 capsule by mouth twice daily as needed - acetylcyst/lkavqnU34/levomefol (METAFOLBIC PLUS ORAL) Take by mouth. - cetirizine (ZYRTEC) 10 mg tablet Take 1 tablet by mouth once daily as needed (for itching, sneezing or runny nose). - losartan (COZAAR) 25 mg tablet (Discontinued) Take 1 tablet by mouth once daily. 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.* Vitamin D deficiency [E55.9] Family history of colon cancer [Z80.0] Cardiomyopathy, nonischemic (HCC) [I42.8] 04/14/2013 Abnormality of gait [R26.9] 05/04/2014 Ganglion cyst of right foot [M67.471] 09/09/2015 Biventricular ICD (implantable cardioverter-def*10/10/2015 Uncontrolled type 2 diabetes mellitus with diab*12/21/2015 Restless leg syndrome [G25.81] 02/09/2016 Peroneal tendinitis [M76.70] 07/12/2016 Pain in joint, ankle and foot [M25.579] 07/12/2016 Nonallergic rhinitis [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 03-09-2024 Telephone encounter Note* Telephone Encounter - Chelsy Eckert LPN - 03/09/2024 3:19 PM EDT Patient called requesting the following refill Refill(s) Requested: Requested Prescriptions Pending Prescriptions Disp Refills spironolactone (ALDACTONE) 25 mg tablet DULoxetine (CYMBALTA) 60 mg capsule 120 capsule 3 Sig: Take 1 capsule by mouth two times a day. atorvastatin (LIPITOR) 10 mg tablet 30 tablet 11 Sig: Take 1 tablet by mouth once daily. carvedilol (COREG) 25 mg tablet 60 tablet 11 Sig: Take 1 tablet by mouth two times a day. ALLERGIES Allergen Reactions Adhesive Tape (Natty* Itching Latex, Natural Rubb* Rash Metformin Other: See Comments Caused arrhythmia issues Seasonal Allergies Itching Simvastatin Other: See Comments myalgia (home) [phone] (cell) Last Office Visit Date: 02/26/2024 Last [facility] Visit: Visit date not found Future Appointment: 04/02/2024 The patients preferred pharmacy has been captured for this encounter? yes Request is for script(s) to be escript to pharmacy. Chelsy Eckert LPN [facility]08-26-2024 Miscellaneous Notes* Telephone Encounter - Chelsy Eckert LPN - 03/09/2024 3:19 PM EDT Patient called requesting the following refill Refill(s) Requested: Requested Prescriptions Pending Prescriptions Disp Refills spironolactone (ALDACTONE) 25 mg tablet DULoxetine (CYMBALTA) 60 mg capsule 120 capsule 3 Sig: Take 1 capsule by mouth two times a day. atorvastatin (LIPITOR) 10 mg tablet 30 tablet 11 Sig: Take 1 tablet by mouth once daily. carvedilol (COREG) 25 mg tablet 60 tablet 11 Sig: Take 1 tablet by mouth two times a day. ALLERGIES Allergen Reactions Adhesive Tape (Natty* Itching Latex, Natural Rubb* Rash Metformin Other: See Comments Caused arrhythmia issues Seasonal Allergies Itching Simvastatin Other: See Comments myalgia (home) [phone] (cell) Last Office Visit Date: 02/26/2024 Last [facility] Visit: Visit date not found Future Appointment: 04/02/2024 The patients preferred pharmacy has been captured for this encounter? yes Request is for script(s) to be escript to pharmacy. Chelsy Eckert LPN documented in this encounterAdena [facility]08-24-2024 Telephone encounter Note * Telephone Encounter - Williams Rubin MD - 03/07/2024 9:30 AM EDT Needs BMP for Lasix refill. Williams Rubin MD [facility]08-24-2024 Miscellaneous Notes* Telephone Encounter - Williams Rubin MD - 03/07/2024 9:30 AM EDT Needs BMP for Lasix refill. Williams Rubin MD documented in this encounterAdena Fayette Medical Center08-20-2024 NoteHNO ID: [id number] Author: WILLIAMS RUBIN MD Service: ? Author Type: Resident Type: Progress Notes Filed: 03/03/2024 12:40 Note Text: Thank you so much, Jeanie! Williams Rubin [facility]08-20-2024 History of Present illness Narrative* Williams Rubin MD - 03/03/2024 12:40 PM EDT Thank you so much, Jeanie! Williams Rubin MD * Jeanie Murphy RN - 03/03/2024 11:49 AM EDT PRIMARY CARE COORDINATION QUICK NOTE Provider Action/FYI Patient identified by name and date . PCC attempted to contact patient and make her aware Dr. Rubin would like patient to take Lasix BID for 3 days and make a virtual or in office visit for her swelling in her feet. PCC left message for patient to call PCC back at [phone]. Jeanie Murphy RN March 03, 2024 11:53 AM documented in this encounterAden[facility]24 NoteHNO ID: [id number] Author: JEANIE MURPHY RN Service: ? Author Type: Registered Nurse Type: Progress Notes Filed: 03/03/2024 11:54 Note Text: PRIMARY CARE COORDINATION QUICK NOTE Provider Action/FYI Patient identified by name and date . PCC attempted to contact patient and make her aware Dr. Rubin would like patient to take Lasix BID for 3 days and make a virtual or in office visit for her swelling in her feet. PCC left message for patient to call PCC back at [phone]. Jeanie Murphy RN March 03, 2024 11:53 [facility]08-20-2024 NotePatient Outreach (AGACM) MICHELLE JULES ([id number]) 1965 F Date Time Provider Department 03/03/24 JEANIE MURPHY [facility] During your visit today, we recorded the following information about you: Jeanie Murphy RN 03/03/2024 11:54 AM Signed PRIMARY CARE COORDINATION QUICK NOTE Provider Action/FYI Patient identified by name and date . PCC attempted to contact patient and make her aware Dr. Rubin would like patient to take Lasix BID for 3 days and make a virtual or in office visit for her swelling in her feet. PCC left message for patient to call PCC back at [phone]. Jeanie Murphy RN March 03, 2024 11:53 AM Williams Rubin MD 03/03/2024 12:40 PM Signed Thank you so much, Jeanie! Williams Rubin MD Allergies As of Date: 03/03/2024 Noted Allergy Reaction ADHESIVE TAPE (ROSINS) 03/27/2006 9 - Itching LATEX, NATURAL RUBBER 09/09/2018 2 - Rash METFORMIN 07/22/2018 14 - Other: See Comments Comments: Caused arrhythmia issues SEASONAL ALLERGIES 03/01/2023 9 - Itching SIMVASTATIN 11/04/2012 14 - Other: See Comments Comments: myalgia Date Reviewed: 02/26/2024 Reviewed by: Janet Nassar LPN - Fully Assessed Reason for Visit: Flux Tube Attendant Chronic Care [7573] Cmt: Attempted to contact patient with PCP medication instruction Prescriptions as of 03/03/2024 - dulaglutide (TRULICITY) 1.5 mg/0.5 mL pen injector Inject 1.5 mg subcutaneously one time a week. - Pramipexole 0.75 mg tablet Take 1 tablet by mouth daily at bedtime. - aspirin, enteric coated (ECOTRIN LOW STRENGTH) 81 mg EC tablet Take 1 tablet by mouth once daily. - spironolactone (ALDACTONE) 25 mg tablet - potassium chloride ER (KLOR-CON) 20 mEq tablet - insulin lispro (HUMALOG KWIKPEN) 100 unit/mL INJECT 20 UNITS SUBCUTANEOUSLY THREE TIMES A DAY BEFORE MEALS - pantoprazole DR (PROTONIX) 40 mg tablet Take 1 tablet by mouth every 12 hours. - glyBURIDE 5 mg tablet Take 2 tablets by mouth daily with breakfast. - insulin glargine U-300 conc (TOUJEO MAX U-300 SOLOSTAR) 300 unit/mL (3 mL) inpn Inject 90 Units subcutaneously every morning. - insulin needles, DISPOSABLE, (PEN NEEDLE) 31 gauge x 5/16 Use 5 needles per dose. 5 per day for her insulin. - DULoxetine (CYMBALTA) 60 mg capsule Take 1 capsule by mouth two times a day. - magnesium oxide (MAG-OX) 400 mg (241.3 mg magnesium) tablet Take 1 tablet by mouth two times a day. - ergocalciferol 50,000 unit capsule (VITAMIN D2, DRISDOL) Take 1 capsule by mouth one time a week. - gabapentin (NEURONTIN) 300 mg capsule Take 1 capsule by mouth daily at bedtime for 270 days. - flash glucose sensor (FREESTYLE LANCE 2 SENSOR) kit Use to check blood sugar before meals and at bedtime - Docusate Sodium (STOOL SOFTENER) 100 mg tab Take 1 capsule by mouth twice daily as needed - acetylcyst/ktesvsS82/levomefol (METAFOLBIC PLUS ORAL) Take by mouth. - furosemide (LASIX) 40 mg tablet Take 1 tablet by mouth once daily. - cetirizine (ZYRTEC) 10 mg tablet Take 1 tablet by mouth once daily as needed (for itching, sneezing or runny nose). - losartan (COZAAR) 25 mg tablet (Discontinued) Take 1 tablet by mouth once daily. - blood sugar diagnostic (ICVRxUCH ULTRA TEST) test strip USE TO TEST BLOOD SUGAR THREE TIMES A DAY - atorvastatin (LIPITOR) 10 mg tablet Take 1 tablet by mouth once daily. - carvedilol (COREG) 25 mg tablet Take 1 tablet by mouth twice daily. 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.* Vitamin D deficiency [E55.9] Family history of colon cancer [Z80.0] Cardiomyopathy, nonischemic (HCC) [I42.8] 04/14/2013 Abnormality of gait [R26.9] 05/04/2014 Ganglion cyst of right foot [M67.471] 09/09/2015 Biventricular ICD (implantable cardioverter-def*10/10/2015 Uncontrolled type 2 diabetes mellitus with diab*12/21/2015 Restless leg syndrome [G25.81] 02/09/2016 Peroneal tendinitis [M76.70] 07/12/2016 Pain in joint, ankle and foot [M25.579] 07/12/2016 Nonallergic rhinitis [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 03-02-2024 NoteHNO ID: [id number] Author: JAMIE GRAF DO Service: ? Author Type: Physician Type: Progress Notes Filed: 03/02/2024 14:19 Note Text: PharmD AND Physician Collaboration Note PharmD working in collaboration with provider staff for patient care I have reviewed the care plan and agree I confirm the diagnosis of: Type 2 diabetes mellitus with diabetic neuropathy, with long-term current use of insulin (hcc) (primary encounter diagnosis) Uses self-applied continuous glucose monitoring device Diabetes education, encounter for Encounter for medication counseling Preventative health care Complex care coordination See Pharmacist's note for furthur details. Jamie Graf [facility]08-19-2024 History of Present illness Narrative* Jamie Graf DO - 03/02/2024 2:19 PM EDT PharmD & Physician Collaboration Note PharmD working in collaboration with provider staff for patient care I have reviewed the care plan and agree I confirm the diagnosis of: Type 2 diabetes mellitus with diabetic neuropathy, with long-term current use of insulin (hcc) (primary encounter diagnosis) Uses self-applied continuous glucose monitoring device Diabetes education, encounter for Encounter for medication counseling Preventative health care Complex care coordination See Pharmacist's note for furthur details. Jamie Graf DO * Sonia Cr [facility] - 02/26/2024 2:08 PM EDT REASON FOR CONSULT: diabetes Referring Provider: Dr. Thornton Date of Consult: 08/30/2023 Date of last appt with provider: 12/24/2023 Michelle Jules is a 58 year old female who is presenting for follow up visit in person. Patient consents to pharmacy collaborative practice agreement. HPI: Has been out of the [place] for a week Picked up the trulicity, has not started Historically was interested in changing to trulicity due to increase potential for weight loss CGM findings as below No issues with sensor adhesion since placing on abdomen No issues with reader No hypoglycemic events in recent months Denies s/s of hyperglycemia CGM findings: Average glucose, 14 days 12 am - 6 am: 235 6 am - 12 pm: 271 12 pm - 6 pm: 321 6 pm - 12 am: 286 Time in range, 14 days: 9% High: 91% Low: 0% Number of hypoglycemic events in last 14 days: 0 Sensor usage: 83% Feels feet are swollen, no pitting edema in legs noted per technical document writer Regimen as below Confirms insulin pen goes down to 0 when injects No active nausea Denies missed doses; reports no missed doses for 2 months Current Diabetes Medications Toujeo - 90 units daily Humalog 20 units TID Glyburide - 5 mg, 2 pills in AM On BLAIRE/ARB: No, ACR <30 On Statin: Yes On aspirin: Yes Prior intolerance to metformin Denies food insecurity Ex- and his mother do shopping Tried eggs or oatmeal instead of bread or cereal Unclear how often does this instead of carb-based content Snacking: trying to decrease 1 glass of pop per day, 1 glass of tea (decreased) Few days did none; still working on this Limited activity; trying to increase walking Barriers: weather, caring for family members Does not belong to gym - cost limits option Working on MeMeMe application Past medical, family and social history reviewed and updated. Payor: [employer] / Plan: [place] [facility] MEDICAID [facility] / Product Type: Medicaid / REVIEW OF SYSTEMS Review of Systems Constitutional: Negative for chills and fever. VITALS: BP 125/78 Pulse 72 Temp 36.4 C (97.6 F) (Temporal) Resp 16 Ht 5' 9 (1.753 m) Wt 244 lb (110.7 kg) SpO2 97% BMI 36.03 kg/m EXAM: Last 3 Encounter BP Readings: Date: BP: 09/12/2023 115/70 08/30/2023 118/77 05/20/2023 127/76 Wt: 235 lb 12.8 oz (107 kg) BMI: 34.82 kg/(m^2) LABS: Reviewed Hemoglobin A1C Date Value Ref Range Status 01/29/2024 10.2 (H) 4.3 - 5.6 % Final Comment: [place] [employer] guidelines indicate that patients with HgbA1c in the range 5.7-6.4% are at increased risk for development of diabetes, and intervention by lifestyle modification may be beneficial. HgbA1c greater or equal to 6.5% is considered diagnostic of diabetes. Lab Results Component Value Date CHOL 177 01/25/2023 CHOL 147 07/21/2018 LDL 99 01/25/2023 LDL 63 07/21/2018 HDL 38 01/25/2023 HDL 38 07/21/2018 TG 201 01/25/2023 TG 230 07/21/2018 Albumin/Creat Ratio (mg/g) Date Value 01/25/2023 7 ASSESSMENT/PLAN 1. Type 2 diabetes mellitus with diabetic neuropathy, with long-term current use of insulin (HCC) -ICD9: 250.60, 357.2, V58.67, ICD10: E11.40, Z79.4 (primary diagnosis) SMBG elevated though has been out of GLP1. No nausea - Continue current medications, start truclity - Statin prescribed - atorvastatin - Blood glucose monitoring on a continuous glucose monitoring schedule - Counseled on healthy diet and regular exercise - Discussed need for and benefit of weight loss. BMI 36.03 kg/(m^2) - Discussed diabetic education issues of diabetes complications and monitoring required, hypoglycemic/hyperglycemic symptoms, and medication-specific side effects and monitoring - limit carb-based options; encouraged higher protein intake - LIPID PANEL BASIC - ALBUMIN/CREATININE RATIO, URINE 2. Uses self-applied continuous glucose monitoring device - ICD9: V49.89, ICD10: Z97.8 Encouraged ongoing use - bring reader to next appt 3. Diabetes education, encounter for - ICD9: V65.49, ICD10: Z71.89 - encouraged breakfast based breakfast - complete application for [email or web address] 4. Encounter for medication counseling - ICD9: V65.49, ICD10: Z71.89 Reviewed administration steps for trulicity, pt able to demo with first injection 5. Preventative health care - ICD9: V70.0, ICD10: Z00.00 -schedule mammogram and colonoscopy 6. Complex care coordination - ICD9: V65.49, ICD10: Z71.89 - message sent to provider and intensive care anaesthetist regarding feet swelling Patient verbalized understanding of instructions. Thank you for allowing pharmacy to participate in this patient's care Sonia Cr Rph The majority of the pharmacy visit (> 50%) was spent counseling and/or coordinating care for thepatient. I spent a total of 25 minutes on the date of the service which included preparing to see the patient, [id number] patient care, completing clinical documentation, and counseling and educating the patient/family/caregiver. documented in this encounterAdena [facility]08-14-2024 Instructions* Patient Instructions* Sonia rC RPh - 02/26/2024 2:20 PM EDT Thank you for letting us care for you today! Below is a brief summary of our appointment. You were seen for: diabetes Medication changes: - TRULICITY on Wednesdays - continue other diabetes medications What you can do at home: - 3-4 days out of the week breakfast: oatmeal OR eggs INSTEAD of toast or cereal - complete application for MeMeMe Other recommendations: - Please call central scheduling at [phone] to schedule mammogram and colonoscopy - lab work before next appointment, fast 8 hours before appointment documented in this encounterAdena [facility]08-14-2024 NoteHNO ID: [id number] Author: SONIA CR RPh Service: ? Author Type: Pharmacist Type: Progress Notes Filed: 03/02/2024 10:19 Note Text: REASON FOR CONSULT: diabetes Referring Provider: Dr. Thornton Date of Consult: 08/30/2023 Date of last appt with provider: 12/24/2023 Michelle Jules is a 58 year old female who is presenting for follow up visit in person. Patient consents to pharmacy collaborative practice agreement. H[facility] Picked up the trulicity, has not started Historically was interested in changing to trulicity due to increase potential for weight loss CGM findings as below No issues with sensor adhesion since placing on abdomen No issues with reader No hypoglycemic events in recent months Denies s/s of hyperglycemia CGM findings: Average glucose, 14 days 12 am - 6 am: 235 6 am - 12 pm: 271 12 pm - 6 pm: 321 6 pm - 12 am: 286 Time in range, 14 days: 9% High: 91% Low: 0% Number of hypoglycemic events in last 14 days: 0 Sensor usage: 83% Feels feet are swollen, no pitting edema in legs noted per technical document writer Regimen as below Confirms insulin pen goes down to 0 when injects No active nausea Denies missed doses; reports no missed doses for 2 months Current Diabetes Medications Toujeo - 90 units daily Humalog 20 units TID Glyburide - 5 mg, 2 pills in AM On BLAIRE/ARB: No, ACR <30 On Statin: Yes On aspirin: Yes Prior intolerance to metformin Denies food insecurity Ex- and his mother do shopping Tried eggs or oatmeal instead of bread or cereal Unclear how often does this instead of carb-based content Snacking: trying to decrease 1 glass of pop per day, 1 glass of tea (decreased) Few days did none; still working on this Limited activity; trying to increase walking Barriers: weather, caring for family members Does not belong to gym - cost limits option Working on MeMeMe application Past medical, family and social history reviewed and updated. Payor: [employer] / Plan: [place] [facility] MEDICAID [facility] / Product Type: Medicaid / REVIEW OF SYSTEMS Review of Systems Constitutional: Negative for chills and fever. VITALS: BP 125/78 Pulse 72 Temp 36.4 ?C (97.6 ?F) (Temporal) Resp 16 Ht 5' 9 (1.753 m) Wt 244 lb (110.7 kg) SpO2 97% BMI 36.03 kg/m? EXAM: Last 3 Encounter BP Readings: Date: BP: 09/12/2023 115/70 08/30/2023 118/77 05/20/2023 127/76 Wt: 235 lb 12.8 oz (107 kg) BMI: 34.82 kg/(m2) LABS: Reviewed Hemoglobin A1C Date Value Ref Range Status 01/29/2024 10.2 (H) 4.3 - 5.6 % Final Comment: [employer] [place] [employer] guidelines indicate that patients with HgbA1c in the range 5.7-6.4% are at increased risk for development of diabetes, and intervention by lifestyle modification may be beneficial. HgbA1c greater or equal to 6.5% is considered diagnostic of diabetes. Lab Results Component Value Date CHOL 177 01/25/2023 CHOL 147 07/21/2018 LDL 99 01/25/2023 LDL 63 07/21/2018 HDL 38 01/25/2023 HDL 38 07/21/2018 TG 201 01/25/2023 TG 230 07/21/2018 Albumin/Creat Ratio (mg/g) Date Value 01/25/2023 7 ASSESSMENT/PLAN 1. Type 2 diabetes mellitus with diabetic neuropathy, with long-term current use of insulin (HCC) - ICD9: 250.60, 357.2, V58.67, ICD10: E11.40, Z79.4 (primary diagnosis) SMBG elevated though has been out of GLP1. No nausea - Continue current medications, start truclity - Statin prescribed - atorvastatin - Blood glucose monitoring on a continuous glucose monitoring schedule - Counseled on healthy diet and regular exercise - Discussed need for and benefit of weight loss. BMI 36.03 kg/(m2) - Discussed diabetic education issues of diabetes complications and monitoring required, hypoglycemic/hyperglycemic symptoms, and medication-specific side effects and monitoring - limit carb-based options; encouraged higher protein intake - LIPID PANEL BASIC - ALBUMIN/CREATININE RATIO, URINE 2. Uses self-applied continuous glucose monitoring device - ICD9: V49.89, ICD10: Z97.8 Encouraged ongoing use - bring reader to next appt 3. Diabetes education, encounter for - ICD9: V65.49, ICD10: Z71.89 - encouraged breakfast based breakfast - complete application for MeMeMe 4. Encounter for medication counseling - ICD9: V65.49, ICD10: Z71.89 Reviewed administration steps for bren, pt able to demo with first injection 5. Preventative health care - ICD9: V70.0, ICD10: Z00.00 -schedule mammogram and colonoscopy 6. Complex care coordination - ICD9: V65.49, ICD10: Z71.89 - message sent to provider and intensive care anaesthetist regarding feet swelling Patient verbalized understanding of instructions. Thank you for allowing pharmacy to participate in this patient's care Sonia Cr Rph The majority of the pharmacy visit (> 50%) was spent counseling and/or coordinating care for the patient. I spent a total of 25 minutes on the date of the servi (more content not included)...[facility]08-14-2024 NoteHNO ID: [id number] Author: JEANIE MURPHY RN Service: ? Author Type: Registered Nurse Type: Progress Notes Filed: 02/26/2024 12:04 Note Text: ED Follow-Up Note Provider Action / FYI: Patient doing well today. Patient has no need to see eye doctor. Patient going to [facility] Pharm D appointment afternoon. Jeanie Murphy RN February 26, 2024 12:03 PM Call completed by: RN Patient seen in ED: In Network ED Contact made with Patient: Yes The patient was identified by Name and Date of . Discussed Care with: patient Patient was seen in the Emergency Department (ED) Location: [place] [facility] Date: 02/24/2024 Reason for ED Visit: Corneal irritation right eye ED Intervention: 1955 Arrived 2025 fluorescein sodium 1 Strip tetracaine HCl/PF 1 Drop 2052 Discharged New Medications: none Medication Changes: none Does patient understand medication changes: N/A Can patient afford medication changes: N/A Patient educated on worsening symptoms and when and where to seek additional care: Yes Patient Education Provided including treatment plan and new orders. Patient provided with appropriate counseling: Yes Based on gis engineer, the following disposition is advised: No symptoms or symptoms present, not severe. Routed to: No Action Needed Jeanie Murphy RN February 26, 2024 12:03 [facility]08-14-2024 History of Present illness Narrative* Jeanie Murphy RN - 02/26/2024 11:54 AM EDT ED Follow-Up Note Provider Action / FYI: Patient doing well today. Patient has no need to see eye doctor. Patient going to [facility] Pharm D appointment afternoon. Jeanie Murphy RN February 26, 2024 12:03 PM Call completed by: RN Patient seen in ED: In Network ED Contact made with Patient: Yes The patient was identified by Name and Date of . Discussed Care with: patient Patient was seen in the Emergency Department (ED) Location: [place] Date: 02/24/2024 Reason for ED Visit: Corneal irritation right eye ED Intervention: 1955 Arrived 2025 fluorescein sodium 1 Strip tetracaine HCl/PF 1 Drop 2052 Discharged New Medications: none Medication Changes: none Does patient understand medication changes: N/A Can patient afford medication changes: N/A Patient educated on worsening symptoms and when and where to seek additional care: Yes Patient Education Provided including treatment plan and new orders. Patient provided with appropriate counseling: Yes Based on gis engineer, the following disposition is advised: No symptoms or symptoms present, not severe. Routed to: No Action Needed Jeanie Murphy RN February 26, 2024 12:03 PM documented in this encounterAdena [facility]ayette [facility] Center08-14-2024 NotePatient Outreach (AGACM) MICHELLE JULES ([id number]) 1965 F Date Time Provider Department 02/26/24 JEANIE MURPHY [facility] During your visit today, we recorded the following information about you: Jeanie Murphy RN 02/26/2024 12:04 PM Signed ED Follow-Up Note Provider Action / FYI: Patient doing well today. Patient has no need to see eye doctor. Patient going to [facility] Pharm D appointment thi afternoon. Jeanie Murphy RN February 26, 2024 12:03 PM Call completed by: RN Patient seen in ED: In Network ED Contact made with Patient: Yes The patient was identified by Name and Date of . Discussed Care with: patient Patient was seen in the Emergency Department (ED) Location: [place] Date: 02/24/2024 Reason for ED Visit: Corneal irritation right eye ED Intervention: 1955 Arrived 2025 fluorescein sodium 1 Strip tetracaine HCl/PF 1 Drop 2052 Discharged New Medications: none Medication Changes: none Does patient understand medication changes: N/A Can patient afford medication changes: N/A Patient educated on worsening symptoms and when and where to seek additional care: Yes Patient Education Provided including treatment plan and new orders. Patient provided with appropriate counseling: Yes Based on gis engineer, the following disposition is advised: No symptoms or symptoms present, not severe. Routed to: No Action Needed Jeanie Murphy RN February 26, 2024 12:03 PM Allergies As of Date: 02/26/2024 Noted Allergy Reaction ADHESIVE TAPE (ROSINS) 03/27/2006 9 - Itching LATEX, NATURAL RUBBER 09/09/2018 2 - Rash METFORMIN 07/22/2018 14 - Other: See Comments Comments: Caused arrhythmia issues SEASONAL ALLERGIES 03/01/2023 9 - Itching SIMVASTATIN 11/04/2012 14 - Other: See Comments Comments: myalgia Date Reviewed: 02/24/2024 Reviewed by: Georgette Rogel RN - Fully Assessed Reason for Visit: Transition Of Care [4074] Cmt: ER follow up, [place], 02/24/2024 Prescriptions as of 02/26/2024 - dulaglutide (TRULICITY) 1.5 mg/0.5 mL pen injector Inject 1.5 mg subcutaneously one time a week. - Pramipexole 0.75 mg tablet Take 1 tablet by mouth daily at bedtime. - aspirin, enteric coated (ECOTRIN LOW STRENGTH) 81 mg EC tablet Take 1 tablet by mouth once daily. - spironolactone (ALDACTONE) 25 mg tablet - potassium chloride ER (KLOR-CON) 20 mEq tablet - insulin lispro (HUMALOG KWIKPEN) 100 unit/mL INJECT 20 UNITS SUBCUTANEOUSLY THREE TIMES A DAY BEFORE MEALS - pantoprazole DR (PROTONIX) 40 mg tablet Take 1 tablet by mouth every 12 hours. - glyBURIDE 5 mg tablet Take 2 tablets by mouth daily with breakfast. - insulin glargine U-300 conc (TOUJEO MAX U-300 SOLOSTAR) 300 unit/mL (3 mL) inpn Inject 90 Units subcutaneously every morning. - insulin needles, DISPOSABLE, (PEN NEEDLE) 31 gauge x 5/16 Use 5 needles per dose. 5 per day for her insulin. - DULoxetine (CYMBALTA) 60 mg capsule Take 1 capsule by mouth two times a day. - magnesium oxide (MAG-OX) 400 mg (241.3 mg magnesium) tablet Take 1 tablet by mouth two times a day. - ergocalciferol 50,000 unit capsule (VITAMIN D2, DRISDOL) Take 1 capsule by mouth one time a week. - gabapentin (NEURONTIN) 300 mg capsule Take 1 capsule by mouth daily at bedtime for 270 days. - flash glucose sensor (FREESTYLE LANCE 2 SENSOR) kit Use to check blood sugar before meals and at bedtime - Docusate Sodium (STOOL SOFTENER) 100 mg tab Take 1 capsule by mouth twice daily as needed - acetylcyst/axlfdtM39/levomefol (METAFOLBIC PLUS ORAL) Take by mouth. - furosemide (LASIX) 40 mg tablet Take 1 tablet by mouth once daily. - cetirizine (ZYRTEC) 10 mg tablet Take 1 tablet by mouth once daily as needed (for itching, sneezing or runny nose). - losartan (COZAAR) 25 mg tablet (Discontinued) Take 1 tablet by mouth once daily. - blood sugar diagnostic (ICVRxUCH ULTRA TEST) test strip USE TO TEST BLOOD SUGAR THREE TIMES A DAY - atorvastatin (LIPITOR) 10 mg tablet Take 1 tablet by mouth once daily. - carvedilol (COREG) 25 mg tablet Take 1 tablet by mouth twice daily. 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08-12-2024 Telephone encounter Note* Telephone Encounter - Tamica Beatty LPN - 02/24/2024 5:34 PM EDT error [facility]08-12-2024 Miscellaneous Notes* Telephone Encounter - Tamica Beatty LPN - 02/24/2024 5:34 PM EDT error documented in [facility] encounterA[facility] Telephone encounter Note * Telephone Encounter - Williams Rubin MD - 02/21/2024 3:48 PM EDT Will message patient to see if there is another preferred pharmacy. Called patient on phone number in Chart and message stating [employer] your call cannot be completed. Williams Rubin MD [facility]08-09-2024 Miscellaneous Notes* Telephone Encounter - Williams Rubin MD - 02/21/2024 3:48 PM EDT Will message patient to see if there is another preferred pharmacy. Called patient on phone number in Chart and message stating [employer] your call cannot be completed. Williams Rubin MD * Telephone Encounter - Chelsy Eckert LPN - 02/20/2024 5:14 PM EDT Patient states pharmacy is unable to get the Victoza in, what is she supposed to do? Please advise. Chelsy Eckert LPN documented in this encounterAden[facility] Telephone encounter Note * Telephone Encounter - Chelsy Eckert LPN - 02/20/2024 5:14 PM EDT Patient states pharmacy is unable to get the [place] in, what is she supposed to do? Please advise. Chelsy Eckert LPN [facility]08-01-2024 NoteHNO ID: [id number] Author: WILILAMS RUBIN MD Service: ? Author Type: Resident Type: Progress Notes Filed: 02/13/2024 16:36 Note Text: Thank you, Dr. Cr!! Thank you both for the updates too! Williams Rubin [facility]08-01-2024 History of Present illness Narrative* Williams Rubin MD - 02/13/2024 4:35 PM EDT Thank you, Dr. Cr!! Thank you both for the updates too! Williams Rubin MD * Sonia Cr RPh - 02/13/2024 12:35 PM EDT Unable to make adjustments based on patient reports. Appt with pharmD 02/26/2024. Please ensure pt brings CGM reader. Thank you! Sonia Cr RPh * Jeanie Murphy RN - 02/13/2024 11:25 AM EDT AG PRIMARY CARE COORDINATION FOLLOW-UP NOTE Provider Action/FYI: Patient identified by name and date of : YES Spoke to: patient Summary: PCC contacted patient for PCC follow up. Patient made PCC aware her blood sugars have been running between 2-300 over eleuterio last couple of weeks. Patient has had some in the 100 range , but none under 100. Patient could not give her lowest reading over the last two weeks at this time. PCC reviewed patient's medication with her and she is taking all her diabetic medications as prescribed and has not missed a dose. Patient said she has not drank any sugary drinks. Patient has not eaten candy or dessert type foods. Patient's next Diabetic follow up appointment is 02/26/2024. PCC instructed patient to call [phone] with any questions or concerns. Health leads screening tool questions performed? No N/A Concerns: Goals: Active Goals - Current status as of 02/13/2024 at 11:32 AM Most Recent Blood Pressure < 130/80 113/69 (01/29/2024) Confirm medication adherence of all prescribed medications and uses them correctly Hemoglobin A1C < 7 10.2 (01/29/2024) LDL at or below 100 mg/dL or on a high statin Health Maintenance Topics with due status: Overdue Topic Date Due Hepatitis B Vaccine Never done Mammogram Screening 12/03/2018 Colorectal Cancer Screening 09/27/2021 Health Maintenance Topics with due status: Due On Topic Date Due Urine Albumin:Creatinine Ratio 01/26/2024 LDL Cholesterol 01/26/2024 Pbx Installer plan for next outreach: Will follow-up 3 weeks Signature: Jeanie Murphy RN February 13, 2024 documented in this encounterAdena [facility]08-01-2024 NoteHNO ID: [id number] Author: SONIA CR [facility] Service: ? Author Type: Pharmacist Type: Progress Notes Filed: 02/13/2024 12:36 Note Text: Unable to make adjustments based on patient reports. Appt with pharmD 02/26/2024. Please ensure pt brings CGM reader. Thank you! Sonia Cr [facility]08-01-2024 NoteHNO ID: [id number] Author: JEANIE MURPHY RN Service: ? Author Type: Registered Nurse Type: Progress Notes Filed: 02/13/2024 11:40 Note Text: AG PRIMARY CARE COORDINATION FOLLOW-UP NOTE Provider Action/FYI: Patient identified by name and date of : YES Spoke to: patient Summary: PCC contacted patient for PCC follow up. Patient made PCC aware her blood sugars have been running between 2-300 over eleuterio last couple of weeks. Patient has had some in the 100 range , but none under 100. Patient could not give her lowest reading over the last two weeks at this time. PCC reviewed patient's medication with her and she is taking all her diabetic medications as prescribed and has not missed a dose. Patient said she has not drank any sugary drinks. Patient has not eaten candy or dessert type foods. Patient's next Diabetic follow up appointment is 02/26/2024. PCC instructed patient to call [phone] with any questions or concerns. Health leads screening tool questions performed? No N/A Concerns: Goals: Active Goals - Current status as of 02/13/2024 at 11:32 AM Most Recent Blood Pressure < 130/80 113/69 (01/29/2024) Confirm medication adherence of all prescribed medications and uses them correctly Hemoglobin A1C < 7 10.2 (01/29/2024) LDL at or below 100 mg/dL or on a high statin Health Maintenance Topics with due status: Overdue Topic Date Due Hepatitis B Vaccine Never done Mammogram Screening 12/03/2018 Colorectal Cancer Screening 09/27/2021 Health Maintenance Topics with due status: Due On Topic Date Due Urine Albumin:Creatinine Ratio 01/26/2024 LDL Cholesterol 01/26/2024 Pbx Installer plan for next outreach: Will follow-up 3 weeks Signature: Jeanie Murphy RN February 12[facility]08-01-2024 NotePatient Outreach (AGACM) MICHELLE JULES ([id number]) 1965 F Date Time Provider Department 02/13/24 JEANIE MURPHY During your visit today, we recorded the following information about you: Jeanie Murphy RN 02/13/2024 11:40 AM Signed AG PRIMARY CARE COORDINATION FOLLOW-UP NOTE Provider Action/FYI: Patient identified by name and date of : YES Spoke to: patient Summary: PCC contacted patient for PCC follow up. Patient made PCC aware her blood sugars have been running between 2-300 over eleuterio last couple of weeks. Patient has had some in the 100 range , but none under 100. Patient could not give her lowest reading over the last two weeks at this time. PCC reviewed patient's medication with her and she is taking all her diabetic medications as prescribed and has not missed a dose. Patient said she has not drank any sugary drinks. Patient has not eaten candy or dessert type foods. Patient's next Diabetic follow up appointment is 02/26/2024. PCC instructed patient to call [phone] with any questions or concerns. Health leads screening tool questions performed? No N/A Concerns: Goals: Active Goals - Current status as of 02/13/2024 at 11:32 AM Most Recent Blood Pressure < 130/80 113/69 (01/29/2024) Confirm medication adherence of all prescribed medications and uses them correctly Hemoglobin A1C < 7 10.2 (01/29/2024) LDL at or below 100 mg/dL or on a high statin Health Maintenance Topics with due status: Overdue Topic Date Due Hepatitis B Vaccine Never done Mammogram Screening 12/03/2018 Colorectal Cancer Screening 09/27/2021 Health Maintenance Topics with due status: Due On Topic Date Due Urine Albumin:Creatinine Ratio 01/26/2024 LDL Cholesterol 01/26/2024 Pbx Installer plan for next outreach: Will follow-up 3 weeks Signature: Jeanie Murphy RN February 13, 2024 Sonia Cr RPh 02/13/2024 12:36 PM Signed Unable to make adjustments based on patient reports. Appt with pharmD 02/26/2024. Please ensure pt brings CGM reader. Thank you! Sonia Cr [facility] Williams Rubin MD 02/13/2024 4:36 PM Signed Thank you, Dr. Cr!! Thank you both for the updates too! 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 - aspirin, enteric coated (ECOTRIN LOW STRENGTH) 81 mg EC tablet Take 1 tablet by mouth once daily. - liraglutide (VICTOZA) 0.6 mg/ 0.1 ml subcutaneous pen injector Inject 1.2 mg subcutaneously once daily. - spironolactone (ALDACTONE) 25 mg tablet - potassium chloride ER (KLOR-CON) 20 mEq tablet - insulin lispro (HUMALOG KWIKPEN) 100 unit/mL INJECT 20 UNITS SUBCUTANEOUSLY THREE TIMES A DAY BEFORE MEALS - pantoprazole DR (PROTONIX) 40 mg tablet Take 1 tablet by mouth every 12 hours. - glyBURIDE 5 mg tablet Take 2 tablets by mouth daily with breakfast. - insulin glargine U-300 conc (TOUJEO MAX U-300 SOLOSTAR) 300 unit/mL (3 mL) inpn Inject 90 Units subcutaneously every morning. - insulin needles, DISPOSABLE, (PEN NEEDLE) 31 gauge x 5/16 Use 5 needles per dose. 5 per day for her insulin. - DULoxetine (CYMBALTA) 60 mg capsule Take 1 capsule by mouth two times a day. - magnesium oxide (MAG-OX) 400 mg (241.3 mg magnesium) tablet Take 1 tablet by mouth two times a day. - ergocalciferol 50,000 unit capsule (VITAMIN D2, DRISDOL) Take 1 capsule by mouth one time a week. - gabapentin (NEURONTIN) 300 mg capsule Take 1 capsule by mouth daily at bedtime for 270 days. - flash glucose sensor (FREESTYLE LANCE 2 SENSOR) kit Use to check blood sugar before meals and at bedtime - Docusate Sodium (STOOL SOFTENER) 100 mg tab Take 1 capsule by mouth twice daily as needed - acetylcyst/ncdxkfC25/levomefol (METAFOLBIC PLUS ORAL) Take by mouth. - furosemide (LASIX) 40 mg tablet Take 1 tablet by mouth once daily. - cetirizine (ZYRTEC) 10 mg tablet Take 1 tablet by mouth once daily as needed (for itching, sneezing or runny nose). - losartan (COZAAR) 25 mg tablet (Discontinued) Take 1 tablet by mouth once daily. - blood sugar diagnostic ([place] ULTRA TEST) test strip USE TO TEST BLOOD SUGAR THREE TIMES A DAY - atorvastatin (LIPITOR) 10 mg tablet Take 1 tablet by mouth once daily. - carvedilol (COREG) 25 mg tablet Take 1 tablet by mouth twice daily. Facility-Administered Medications as of (more content not included)...[facility]07-31-2024 Telephone encounter Note* Telephone Encounter - Karthik Cazares - 02/12/2024 3:04 PM EDT The patient/caregiver contacted the office, requesting refills of liraglutide (VICTOZA) 0.6 mg/ 0.1ml subcutaneous pen injector . Patient prefers prescriptions to be e prescribed to [facility] [address] [place] [address] - [address] [phone] Last Office Visit Date: 01/29/2024 Last Distance Health Visit: Visit date not found Future Appointment: 02/26/2024 Karthik Cazares [facility]07-31-2024 Miscellaneous Notes* Telephone Encounter - Karthik Cazares - 02/12/2024 3:04 PM EDT The patient/caregiver contacted the office, requesting refills of liraglutide (VICTOZA) 0.6 mg/ 0.1ml subcutaneous pen injector . Patient prefers prescriptions to be e prescribed to [facility] - [id number] - [place] [address] - [address] [phone] Last Office Visit Date: 01/29/2024 Last Distance Health Visit: Visit date not found Future Appointment: 02/26/2024 Karthik Cazares documented in this encounterAdena [facility]07-[facility]-2024 Telephone encounter Note * Telephone Encounter - Aby Bahena LPN - 02/12/2024 8:54 AM EDT Pharmacy called requesting the following refill Refill(s) Requested: Requested Prescriptions Pending Prescriptions Disp Refills Pramipexole 0.75 mg tablet 90 tablet 1 Sig: Take 1 tablet by mouth daily at bedtime. aspirin, enteric coated (ECOTRIN LOW STRENGTH) 81 mg EC tablet 30 tablet 11 Sig: Take 1 tablet by mouth once daily. ALLERGIES Allergen Reactions Adhesive Tape (Natty* Itching Latex, Natural Rubb* Rash Metformin Other: See Comments Caused arrhythmia issues Seasonal Allergies Itching Simvastatin Other: See Comments myalgia (home) [phone] (cell) Last Office Visit Date: 01/29/2024 Last Distance Health Visit: Visit date not found Future Appointment: 02/26/2024 The patients preferred pharmacy has been captured for this encounter? yes Request is for script(s) to be escript to pharmacy. Aby Bahena LPN [facility]07-31-2024 Miscellaneous Notes* Telephone Encounter - Aby Bahena LPN - 02/12/2024 8:54 AM EDT Pharmacy called requesting the following refill Refill(s) Requested: Requested Prescriptions Pending Prescriptions Disp Refills Pramipexole 0.75 mg tablet 90 tablet 1 Sig: Take 1 tablet by mouth daily at bedtime. aspirin, enteric coated (ECOTRIN LOW STRENGTH) 81 mg EC tablet 30 tablet 11 Sig: Take 1 tablet by mouth once daily. ALLERGIES Allergen Reactions Adhesive Tape (Natty* Itching Latex, Natural Rubb* Rash Metformin Other: See Comments Caused arrhythmia issues Seasonal Allergies Itching Simvastatin Other: See Comments myalgia (home) [phone] (cell) Last Office Visit Date: 01/29/2024 Last Distance Health Visit: Visit date not found Future Appointment: 02/26/2024 The patients preferred pharmacy has been captured for this encounter? yes Request is for script(s) to be escript to pharmacy. Aby Bahena LPN documented in this encounterAdena [facility]07-18-2024 NoteHNO ID: [id number] Author: WILLIAMS RUBIN MD Service: ? Author Type: Resident Type: Progress Notes Filed: 01/30/2024 11:01 Note Text: This is great news! Thank you, Dr. Cr! Williams Rubin [facility]07-17-2024 NoteHNO ID: [id number] Author: JAMIE GRAF DO Service: ? Author Type: Physician Type: Progress Notes Filed: 01/29/2024 14:16 Note Text: PharmD AND Physician Collaboration Note PharmD working in collaboration with provider staff for patient care I have reviewed the care plan and agree I confirm the diagnosis of: Encounter for screening mammogram for breast cancer Encounter for behavioral health screening Class 2 obesity with body mass index (bmi) of 35.0 to 35.9 in adult, unspecified obesity type, unspecified whether serious comorbidity present Preventative health care Uses self-applied continuous glucose monitoring device Diabetes education, encounter for Type 2 diabetes mellitus with diabetic neuropathy, with long-term current use of insulin (hcc) (primary encounter diagnosis) Counseling and coordination of care See Pharmacist's note for furthur details. Jamie Graf [facility] History of Present illness Narrative* Jamie Graf DO - 01/29/2024 2:16 PM EDT PharmD & Physician Collaboration Note PharmD working in collaboration with provider staff for patient care I have reviewed the care plan and agree I confirm the diagnosis of: Encounter for screening mammogram for breast cancer Encounter for behavioral health screening Class 2 obesity with body mass index (bmi) of 35.0 to 35.9 in adult, unspecified obesity type, unspecified whether serious comorbidity present Preventative health care Uses self-applied continuous glucose monitoring device Diabetes education, encounter for Type 2 diabetes mellitus with diabetic neuropathy, with long-term current use of insulin (hcc) (primary encounter diagnosis) Counseling and coordination of care See Pharmacist's note for furthur details. Jamie Graf DO * Williams Rubin MD - 01/29/2024 12:38 PM EDT Thank you, Dr. Cr! Mammogram ordered! Williams Rubin MD * Sonia Cr, [facility] - 01/29/2024 11:33 AM EDT REASON FOR CONSULT: diabetes Referring Provider: Dr. Thornton Date of Consult: 08/30/2023 Date of last appt with provider: 12/24/2023 Michelle Jules is a 58 year old female who is presenting for follow up visit in person. Patient consents to pharmacy collaborative practice agreement. HPI: Confirmed nausea improved Noticed improvement with decrease in victoza Reports CGM has not been working Has not been checking SMBG Denies s/s of hyperglycemia Unclear when she last checked Not doing fingerstick - POC BG Denies s/s of hypoglycemia recently Historically treats with candy Regimen as below Victoza change as above Confirms insulin pen goes down to 0 when injects Denies missed doses; reports no missed doses for 2 months Reports put note on fridge to help Current Diabetes Medications Toujeo - 90 units daily Humalog 20 units TID Victoza - 1.2 mg daily Glyburide - 5 mg BID On BLAIRE/ARB: No, ACR <30 On Statin: Yes On aspirin: Yes Prior intolerance to metformin Denies food insecurity Ex- and his mother do shopping She does the cooking Meals continue to be inconsistent BEDS7: negative 1 glass of pop per day, 1 glass of tea (decreased) 24 hour recall: Breakfast this morning - 2 pieces of toast, 1 with PB, 1 with butter Lunch yesterday - skipped Dinner yesterday - grilled cheese with low fat turkey, handful of chips Snacks - wheat crackers (5) Limited activity; trying to increase walking Barriers: weather, caring for family members Does not belong to gym - cost limits option Going on trip to [place] end of this month Follows Past medical, family and social history reviewed and updated. Payor: [employer] / Plan: [employer] [place] / Product Type: Medicaid / REVIEW OF SYSTEMS Review of Systems Constitutional: Negative for chills and fever. VITALS: BP 113/69 Pulse 90 Temp (!) 35.9 C (96.6 F) Ht 5' 9 (1.753 m) Wt 241 lb (109.3 kg) BMI 35.59 kg/m EXAM: Last 3 Encounter BP Readings: Date: BP: 09/12/2023 115/70 08/30/2023 118/77 05/20/2023 127/76 Wt: 235 lb 12.8 oz (107 kg) BMI: 34.82 kg/(m^2) LABS: Reviewed Hemoglobin A1C (POCT) Date Value Ref Range Status 12/24/2023 10.7 (A) 4.3 - 5.6 % Final Comment: Location:[facility], [address] [place] [address], [facility] Point of care (POC) Hemoglobin A1c (HGBA1C) testing is intended to assess glucose control and provide a management tool for patients known to have diabetes and their healthcare providers. Target HGBA1C levels may depend on specific clinical circumstances. POC HGBA1C is not intended for use as a diagnostic or screening test; laboratory-based testing should be used for diagnostic purposes. The following information is supplemental and may not be applicable to specific diabetes management situations: The POC device sas bi developer provides a normal range of 4.2% to 6.5% for the HGBA1C POC test. However, the [place] [employer] guidelines indicate that patients with HGBA1C in the range of 5.7% to 6.4% are at increased risk for development of diabetes and that intervention by lifestyle modification may be beneficial. A HGBA1C level greater than or equal to 6.5% is considered diagnostic of diabetes, pending confirmatory testing. Use of HGBA1C testing to evaluate glucose control may not be appropriate for patients with hemoglobin variants or other conditions (e.g. anemia) that alter red blood cell lifespan. Lab Results Component Value Date CHOL 177 01/25/2023 CHOL 147 07/21/2018 LDL 99 01/25/2023 LDL 63 07/21/2018 HDL 38 01/25/2023 HDL 38 07/21/2018 TG 201 01/25/2023 TG 230 07/21/2018 Albumin/Creat Ratio (mg/g) Date Value 01/25/2023 7 ASSESSMENT/PLAN 1. Type 2 diabetes mellitus with diabetic neuropathy, with long-term current use of insulin (HCC) -ICD9: 250.60, 357.2, V58.67, ICD10: E11.40, Z79.4 (primary diagnosis) - Improving control; however, unable to make changes today based on no updated SMBG. Interested in wt loss. History of nausea on higher doses of victoza. Could change to trulicity but will discuss in02/2024 as she does not want nausea with upcoming vacation - trulicity change could cause nausea - Continue current medications - Statin prescribed - atorvastatin - Blood glucose monitoring on a continuous glucose monitoring schedule - Counseled on healthy diet and regular exercise - Discussed need for and benefit of weight loss. BMI 35.59 kg/(m^2) - Discussed diabetic education issues of diabetes complications and monitoring required, hypoglycemic/hyperglycemic symptoms, and medication-specific side effects and monitoring - limit carb-based options; encouraged higher protein intake 2. Encounter for screening mammogram for breast cancer - ICD9: V76.12, ICD10: Z12.31 Agreeable; message sent to provider who ordered - [facility] SCREENING [facility] [place] 3. Encounter for behavioral health screening - ICD9: V82.89, ICD10: Z13.30 No concerns noted; no intervention needed - BEHAVIORAL HEALTH SCREENING 4. Class 2 obesity with body mass index (BMI) of 35.0 to 35.9 in adult, unspecified obesity type, unspecified whether serious comorbidity present - ICD9: 278.00, V85.35, ICD10: E66.9, Z68.35 Stable - Behavioral and pharmacological intervention - victoza to trulicity discussed; see above - application provided to [employer] - limit carb-based options/portions; encouraged increased protein 5. Preventative health care - ICD9: V70.0, ICD10: Z00.00 - get ordered lab work - schedule mammogram and colonoscopy 6. Uses self-applied continuous glucose monitoring device - ICD9: V49.89, ICD10: Z97.8 Encouraged ongoing use - New sensor placed, no issue - error with CGM reader 7. Diabetes education, encounter for - ICD9: V65.49, ICD10: Z71.89 SMBG goals reviewed - limit carb portion, increase protein 8. Counseling and coordination of care - ICD9: V65.49, ICD10: Z71.89 Message sent to resident PCP and intensive care anaesthetist Patient verbalized understanding of instructions. Thank you for allowing pharmacy to participate in this patient's care Sonia Cr Rph The majority of the pharmacy visit (> 50%) was spent counseling and/or coordinating care for thepatient. I spent a total of 25 minutes on the date of the service which included preparing to see the patient, [id number] patient care, completing clinical documentation, and counseling and educating the patient/family/caregiver. documented in this encounterAdena [facility]ayette [facility]07-17-2024 NoteHNO ID: [id number] Author: WILLIAMS RUBIN MD Service: ? Author Type: Resident Type: Progress Notes Filed: 01/29/2024 13:57 Note Text: Thank you, Dr. Cr! Mammogram ordered! Williams Rubin [facility]07-17-2024 Instructions* Patient Instructions* Sonia Cr RPh - 01/29/2024 11:46 AM EDT Thank you for letting us care for you today! Below is a brief summary of our appointment. You were seen for: diabetes Medication changes: - big win! No missed doses; keep up the good work! - can discuss trulicity change at next appointment - can cause nausea though so will wait until after vacation. This would REPLACE victoza What you can do at home: - to help with weight loss (and sugars!) - try to minimize bread. For example, swap toast for greekyogurt (I like strawberry flavor or vanilla and I put a 1/2 of a spoonful of peanut butter in mine)OR oatmeal OR eggs. - consider hard boiled eggs for snack instead of crackers - review application for [facility] - Please call central scheduling at [phone] to schedule colonoscopy and mammogram - get lab work documented in this encounterAdena Fayette [facility] Center07-17-2024 NoteHNO ID: [id number] Author: SONIA CR [facility] [facility] Service: ? Author Type: Pharmacist Type: Progress Notes Filed: 01/29/2024 13:57 Note Text: REASON FOR CONSULT: diabetes Referring Provider: Dr. Thornton Date of Consult: 08/30/2023 Date of last appt with provider: 12/24/2023 Michelle Jules is a 58 year old female who is presenting for follow up visit in person. Patient consents to pharmacy collaborative practice agreement. HPI: Confirmed nausea improved Noticed improvement with decrease in victoza Reports CGM has not been working Has not been checking SMBG Denies s/s of hyperglycemia Unclear when she last checked Not doing fingerstick - POC BG Denies s/s of hypoglycemia recently Historically treats with candy Regimen as below Victoza change as above Confirms insulin pen goes down to 0 when injects Denies missed doses; reports no missed doses for 2 months Reports put note on fridge to help Current Diabetes Medications Toujeo - 90 units daily Humalog 20 units TID Victoza - 1.2 mg daily Glyburide - 5 mg BID On BLAIRE/ARB: No, ACR <30 On Statin: Yes On aspirin: Yes Prior intolerance to metformin Denies food insecurity Ex- and his mother do shopping She does the cooking Meals continue to be inconsistent BEDS7: negative 1 glass of pop per day, 1 glass of tea (decreased) 24 hour recall: Breakfast this morning - 2 pieces of toast, 1 with PB, 1 with butter Lunch yesterday - skipped Dinner yesterday - grilled cheese with low fat turkey, handful of chips Snacks - wheat crackers (5) Limited activity; trying to increase walking Barriers: weather, caring for family members Does not belong to gym - cost limits option Going on trip to [place] end of this month Follows Past medical, family and social history reviewed and updated. Payor: [employer]ICA[employer] / Plan: [place] [facility] MEDICAID OF [place] / Product Type: Medicaid / REVIEW OF SYSTEMS Review of Systems Constitutional: Negative for chills and fever. VITALS: BP 113/69 Pulse 90 Temp (!) 35.9 ?C (96.6 ?F) Ht 5' 9 (1.753 m) Wt 241 lb (109.3 kg) BMI 35.59 kg/m? EXAM: Last 3 Encounter BP Readings: Date: BP: 09/12/2023 115/70 08/30/2023 118/77 05/20/2023 127/76 Wt: 235 lb 12.8 oz (107 kg) BMI: 34.82 kg/(m2) LABS: Reviewed Hemoglobin A1C (POCT) Date Value Ref Range Status 12/24/2023 10.7 (A) 4.3 - 5.6 % Final Comment: Location:[facility], [address] [place] [address], [id number] Point of care (POC) Hemoglobin A1c (HGBA1C) testing is intended to assess glucose control and provide a management tool for patients known to have diabetes and their healthcare providers. Target HGBA1C levels may depend on specific clinical circumstances. POC HGBA1C is not intended for use as a diagnostic or screening test; laboratory-based testing should be used for diagnostic purposes. The following information is supplemental and may not be applicable to specific diabetes management situations: The POC device sas bi developer provides a normal range of 4.2% to 6.5% for the HGBA1C POC test. However, the [place] [employer] guidelines indicate that patients with HGBA1C in the range of 5.7% to 6.4% are at increased risk for development of diabetes and that intervention by lifestyle modification may be beneficial. A HGBA1C level greater than or equal to 6.5% is considered diagnostic of diabetes, pending confirmatory testing. Use of HGBA1C testing to evaluate glucose control may not be appropriate for patients with hemoglobin variants or other conditions (e.g. anemia) that alter red blood cell lifespan. Lab Results Component Value Date CHOL 177 01/25/2023 CHOL 147 07/21/2018 LDL 99 01/25/2023 LDL 63 07/21/2018 HDL 38 01/25/2023 HDL 38 07/21/2018 TG 201 01/25/2023 TG 230 07/21/2018 Albumin/Creat Ratio (mg/g) Date Value 01/25/2023 7 ASSESSMENT/PLAN 1. Type 2 diabetes mellitus with diabetic neuropathy, with long-term current use of insulin ([facility]) - ICD9: 250.60, 357.2, V58.67, ICD10: E11.40, Z79.4 (primary diagnosis) - Improving control; however, unable to make changes today based on no updated SMBG. Interested in wt loss. History of nausea on higher doses of victoza. Could change to trulicity but will discuss in 02/2024 as she does not want nausea with upcoming vacation - trulicity change could cause nausea - Continue current medications - Statin prescribed - atorvastatin - Blood glucose monitoring on a continuous glucose monitoring schedule - Counseled on healthy diet and regular exercise - Discussed need for and benefit of weight loss. BMI 35.59 kg/(m2) - Discussed diabetic education issues of diabetes complications and monitoring required, hypoglycemic/hyperglycemic symptoms, and medication-specific side effects and monitoring - limit carb-based options; encouraged higher protein intake 2. Encounter for screening mammogram for (more content not included)...[facility]07-01-2024 NoteHNO ID: [id number] Author: WILLIAMS RUBIN MD Service: ? Author Type: Resident Type: Progress Notes Filed: 01/13/2024 16:47 Note Text: Noted. Thank you so much, Dr. Cr! Williams Rubin [facility]06-26-2024 NoteHNO ID: [id number] Author: SONIA CR RPh Service: ? Author Type: Pharmacist Type: Progress Notes Filed: 01/08/2024 12:45 Note Text: Unable to make adjustments based on these reported readings. Please ensure patient brings CGM to pharmD appt. Thanks! Sonia Cr RPh Hemoglobin A1C (POCT) Date Value Ref Range Status 12/24/2023 10.7 (A) 4.3 - 5.6 % Final Comment: [facility], [address] [place] [address], [id number] Point of care (POC) Hemoglobin A1c (HGBA1C) testing is intended to assess glucose control and provide a management tool for patients known to have diabetes and their healthcare providers. Target HGBA1C levels may depend on specific clinical circumstances. POC HGBA1C is not intended for use as a diagnostic or screening test; laboratory-based testing should be used for diagnostic purposes. The following information is supplemental and may not be applicable to specific diabetes management situations: The POC device sas bi developer provides a normal range of 4.2% to 6.5% for the HGBA1C POC test. However, the [place] [employer] guidelines indicate that patients with HGBA1C in the range of 5.7% to 6.4% are at increased risk for development of diabetes and that intervention by lifestyle modification may be beneficial. A HGBA1C level greater than or equal to 6.5% is considered diagnostic of diabetes, pending confirmatory testing. Use of HGBA1C testing to evaluate glucose control may not be appropriate for patients with hemoglobin variants or other conditions (e.g. anemia) that alter red blood cell lifespan.[facility]06-25-2024 NoteHNO ID: [id number] Author: JEANIE MURPHY, RN Service: ? Author Type: Registered Nurse Type: Progress Notes Filed: 01/07/2024 16:23 Note Text: AG PRIMARY CARE COORDINATION FOLLOW-UP NOTE Provider Action/FYI: Patient identified by name and date of : YES Spoke to: patient Summary: PCC contacted patient for PCC follow up. Patient said her nausea has improved a lot. PCC made patient aware there was discussion on starting zofran if nausea will still a problem and patient said she feels she is doing ok with this. Patient said last week she was having issues with a headache. Patient ok today. Patient wondering if it was the hot weather. Patient said blood sugars have been mainly in the 200 range. Patient said she has had a few blood sugars of 89 and 98. Patient did have one as low as 69. Patient said at the end of last week she did have a blood sugar in the 300 range. Next pharm D appointment 01/29/2024 for diabetic follow up PCC instructed patient to call [phone] with any questions or concerns. Health leads screening tool questions performed? No N/A Concerns: Goals: Active Goals - Current status as of 01/07/2024 at 4:17 PM Most Recent Blood Pressure < 130/80 119/63 (12/24/2023) Confirm medication adherence of all prescribed medications and uses them correctly Hemoglobin A1C < 7 6.8 (02/23/2019) LDL at or below 100 mg/dL or on a high statin Health Maintenance Topics with due status: Overdue Topic Date Due Hepatitis B Vaccine Never done Mammogram Screening 12/03/2018 Colorectal Cancer Screening 09/27/2021 Behavioral Health Screening Never done Health Maintenance Topics with due status: Due Soon Topic Date Due Urine Albumin:Creatinine Ratio 01/26/2024 LDL Cholesterol 01/26/2024 Pbx Installer plan for next outreach: Will follow-up 2 weeks Signature: Jeanie Murphy RN January 06[facility]06-25-2024 History of Present illness Narrative* Jeanie Murphy RN - 01/07/2024 4:17 PM EDT AG PRIMARY CARE COORDINATION FOLLOW-UP NOTE Provider Action/FYI: Patient identified by name and date of : YES Spoke to: patient Summary: PCC contacted patient for PCC follow up. Patient said her nausea has improved a lot. PCC made patient aware there was discussion on startingzofran if nausea will still a problem and patient said she feels she is doing ok with this. Patient said last week she was having issues with a headache. Patient ok today. Patient wondering if it was the hot weather. Patient said blood sugars have been mainly in the 200 range. Patient said she has had a few blood sugars of 89 and 98. Patient did have one as low as 69. Patient said at the end of last week she did have a blood sugar in the 300 range. Next pharm D appointment 01/29/2024 for diabetic follow up PCC instructed patient to call [phone] with any questions or concerns. Health leads screening tool questions performed? No N/A Concerns: Goals: Active Goals - Current status as of 01/07/2024 at 4:17 PM Most Recent Blood Pressure < 130/80 119/63 (12/24/2023) Confirm medication adherence of all prescribed medications and uses them correctly Hemoglobin A1C < 7 6.8 (02/23/2019) LDL at or below 100 mg/dL or on a high statin Health Maintenance Topics with due status: Overdue Topic Date Due Hepatitis B Vaccine Never done Mammogram Screening 12/03/2018 Colorectal Cancer Screening 09/27/2021 Behavioral Health Screening Never done Health Maintenance Topics with due status: Due Soon Topic Date Due Urine Albumin:Creatinine Ratio 01/26/2024 LDL Cholesterol 01/26/2024 Pbx Installer plan for next outreach: Will follow-up 2 weeks Signature: Jeanie Murphy RN January 07, 2024 [facility] NotePatient Outreach (AGACM) MICHELLE JULES ([id number]) 1965 F Date Time Provider Department 01/07/24 JEANIE MURPHY [facility] During your visit today, we recorded the following information about you: Jeanie Murphy, RN 01/07/2024 4:23 PM Signed AG PRIMARY CARE COORDINATION FOLLOW-UP NOTE Provider Action/FYI: Patient identified by name and date of : YES Spoke to: patient Summary: PCC contacted patient for PCC follow up. Patient said her nausea has improved a lot. PCC made patient aware there was discussion on starting zofran if nausea will still a problem and patient said she feels she is doing ok with this. Patient said last week she was having issues with a headache. Patient ok today. Patient wondering if it was the hot weather. Patient said blood sugars have been mainly in the 200 range. Patient said she has had a few blood sugars of 89 and 98. Patient did have one as low as 69. Patient said at the end of last week she did have a blood sugar in the 300 range. Next pharm D appointment 01/29/2024 for diabetic follow up PCC instructed patient to call [phone] with any questions or concerns. Health leads screening tool questions performed? No N/A Concerns: Goals: Active Goals - Current status as of 01/07/2024 at 4:17 PM Most Recent Blood Pressure < 130/80 119/63 (12/24/2023) Confirm medication adherence of all prescribed medications and uses them correctly Hemoglobin A1C < 7 6.8 (02/23/2019) LDL at or below 100 mg/dL or on a high statin Health Maintenance Topics with due status: Overdue Topic Date Due Hepatitis B Vaccine Never done Mammogram Screening 12/03/2018 Colorectal Cancer Screening 09/27/2021 Behavioral Health Screening Never done Health Maintenance Topics with due status: Due Soon Topic Date Due Urine Albumin:Creatinine Ratio 01/26/2024 LDL Cholesterol 01/26/2024 Pbx Installer plan for next outreach: Will follow-up 2 weeks Signature: Jeanie Murphy RN January 07, 2024 Sonia Cr [facility] 01/08/2024 12:45 PM Signed Unable to make adjustments based on these reported readings. Please ensure patient brings CGM to pharmD appt. Thanks! Sonia Cr bhupendra Hemoglobin A1C (POCT) Date Value Ref Range Status 12/24/2023 10.7 (A) 4.3 - 5.6 % Final Comment: Location:[facility], [address] [place] [address], [facility] Point of care (POC) Hemoglobin A1c (HGBA1C) testing is intended to assess glucose control and provide a management tool for patients known to have diabetes and their healthcare providers. Target HGBA1C levels may depend on specific clinical circumstances. POC HGBA1C is not intended for use as a diagnostic or screening test; laboratory-based testing should be used for diagnostic purposes. The following information is supplemental and may not be applicable to specific diabetes management situations: The POC device sas bi developer provides a normal range of 4.2% to 6.5% for the HGBA1C POC test. However, the [place] [employer] guidelines indicate that patients with HGBA1C in the range of 5.7% to 6.4% are at increased risk for development of diabetes and that intervention by lifestyle modification may be beneficial. A HGBA1C level greater than or equal to 6.5% is considered diagnostic of diabetes, pending confirmatory testing. Use of HGBA1C testing to evaluate glucose control may not be appropriate for patients with hemoglobin variants or other conditions (e.g. anemia) that alter red blood cell lifespan. Williams Rubin MD 01/13/2024 4:47 PM Signed Noted. Thank you so much, Dr. Cr! 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 - spironolactone (ALDACTONE) 25 mg tablet - potassium chloride ER (KLOR-CON) 20 mEq tablet - insulin lispro (HUMALOG KWIKPEN) 100 unit/mL INJECT 20 UNITS SUBCUTANEOUSLY THREE TIMES A DAY BEFORE MEALS - pantoprazole DR (PROTONIX) 40 mg tablet Take 1 tablet by mouth every 12 hours. - glyBURIDE 5 mg tablet Take 2 tablets by mouth daily with breakfast. - insulin glargine U-300 conc (TOUJEO MAX U-300 SOLOSTAR) 300 unit/mL (3 mL) inpn Inject 90 Units subcutaneously every morning. - insulin needles, DISPOSABLE, (PEN NEEDLE) 31 gauge x 5/16 Use 5 needles per dose. 5 per day for her (more content not included)...[facility]06-21-2024 NoteHNO ID: [id number] Author: KASANDRA RUBIN DO Service: ? Author Type: Physician Type: Progress Notes Filed: 01/03/2024 06:27 Note Text: Attending Note I reviewed the documentation after conclusion of the encounter between the patient and resident physician. I was immediately available in office for real-time consult. I reviewed the jefferson elements of the history. I reviewed the jefferson elements of the chart as needed. I reviewed the findings with the resident I confirm the diagnosis of Type 2 diabetes mellitus with diabetic neuropathy, with long-term current use of insulin (hcc) (primary encounter diagnosis) Dyspepsia Nausea and agree with the resident's plan of care. See resident's note for further details. Signature: Kasandra Rubin DO Faculty Physician, [facility] Res[facility] Date: January 03, 2024 Time: 6:26 [facility]06-17-2024 NoteHNO ID: [id number] Author: JEANIE MURPHY RN Service: ? Author Type: Registered Nurse Type: Progress Notes Filed: 12/30/2023 15:30 Note Text: PRIMARY CARE COORDINATION QUICK NOTE Provider Action/FYI Patient identified by name and date . PCC contacted patient and made them aware of the change of victoza from 1.8 mg to 1.2 mg daily. Patient repeated instructions and said she will start this tomorrow. Patient has no other questions or concerns at this time. Patient still experiencing nausea, but has had slight improvement. PCC instructed patient to call [phone] with any questions or concerns. Jeanie Murphy RN December 30, 2023 3:28 [facility]06-17-2024 History of Present illness Narrative* Jeanie Murphy RN - 12/30/2023 3:27 PM EDT PRIMARY CARE COORDINATION QUICK NOTE Provider Action/FYI Patient identified by name and date . PCC contacted patient and made them aware of the change of victoza from 1.8 mg to 1.2 mg daily. Patient repeated instructions and said she will start this tomorrow. Patient has no other questions or concerns at this time. Patient still experiencing nausea, but has had slight improvement. PCC instructed patient to call [phone] with any questions or concerns. Jeanie Murphy RN December 30, 2023 3:28 PM documented in this encounterAdena [facility]06-[facility] NotePatient Outreach (AGACM) MICHELLE JULES ([id number]) 1965 F Date Time Provider Department 12/30/23 JEANIE MURPHY [facility] During your visit today, we recorded the following information about you: Jeanie Murphy RN 12/30/2023 3:30 PM Signed PRIMARY CARE COORDINATION QUICK NOTE Provider Action/FYI Patient identified by name and date . PCC contacted patient and made them aware of the change of victoza from 1.8 mg to 1.2 mg daily. Patient repeated instructions and said she will start this tomorrow. Patient has no other questions or concerns at this time. Patient still experiencing nausea, but has had slight improvement. PCC instructed patient to call [phone] with any questions or concerns. Jeanie Murphy RN December 30, 2023 3:28 PM Allergies As of Date: 12/30/2023 Noted Allergy Reaction ADHESIVE TAPE (ROSINS) 03/27/2006 9 - Itching LATEX, NATURAL RUBBER 09/09/2018 2 - Rash METFORMIN 07/22/2018 14 - Other: See Comments Comments: Caused arrhythmia issues SEASONAL ALLERGIES 03/01/2023 9 - Itching SIMVASTATIN 11/04/2012 14 - Other: See Comments Comments: myalgia Date Reviewed: 12/24/2023 Reviewed by: Manny Evans MD - Fully Assessed Reason for Visit: Flux Tube Attendant Chronic Care [8053] Cmt: PCC follow up, patient updated on Victoza change Prescriptions as of 12/31/2023 - liraglutide (VICTOZA) 0.6 mg/ 0.1 ml subcutaneous pen injector Inject 1.2 mg subcutaneously once daily. - spironolactone (ALDACTONE) 25 mg tablet - potassium chloride ER (KLOR-CON) 20 mEq tablet - insulin lispro (HUMALOG KWIKPEN) 100 unit/mL INJECT 20 UNITS SUBCUTANEOUSLY THREE TIMES A DAY BEFORE MEALS - pantoprazole DR (PROTONIX) 40 mg tablet Take 1 tablet by mouth every 12 hours. - glyBURIDE 5 mg tablet Take 2 tablets by mouth daily with breakfast. - insulin glargine U-300 conc (TOUJEO MAX U-300 SOLOSTAR) 300 unit/mL (3 mL) inpn Inject 90 Units subcutaneously every morning. - insulin needles, DISPOSABLE, (PEN NEEDLE) 31 gauge x 5/16 Use 5 needles per dose. 5 per day for her insulin. - DULoxetine (CYMBALTA) 60 mg capsule Take 1 capsule by mouth two times a day. - magnesium oxide (MAG-OX) 400 mg (241.3 mg magnesium) tablet Take 1 tablet by mouth two times a day. - Pramipexole 0.75 mg tablet Take 1 tablet by mouth daily at bedtime. - ergocalciferol 50,000 unit capsule (VITAMIN D2, DRISDOL) Take 1 capsule by mouth one time a week. - gabapentin (NEURONTIN) 300 mg capsule Take 1 capsule by mouth daily at bedtime for 270 days. - flash glucose sensor (FREESTYLE LANCE 2 SENSOR) kit Use to check blood sugar before meals and at bedtime - Docusate Sodium (STOOL SOFTENER) 100 mg tab Take 1 capsule by mouth twice daily as needed - acetylcyst/[id number]/levomefol (METAFOLBIC PLUS ORAL) Take by mouth. - furosemide (LASIX) 40 mg tablet Take 1 tablet by mouth once daily. - cetirizine (ZYRTEC) 10 mg tablet Take 1 tablet by mouth once daily as needed (for itching, sneezing or runny nose). - losartan (COZAAR) 25 mg tablet (Discontinued) Take 1 tablet by mouth once daily. - blood sugar diagnostic ([place] ULTRA TEST) test strip USE TO TEST BLOOD SUGAR THREE TIMES A DAY - aspirin, enteric coated (ECOTRIN LOW STRENGTH) 81 mg EC tablet Take 1 tablet by mouth once daily. - atorvastatin (LIPITOR) 10 mg tablet Take 1 tablet by mouth once daily. - carvedilol (COREG) 25 mg tablet Take 1 tablet by mouth twice daily. 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.* Vitamin D deficiency [E55.9] Family history of colon cancer [Z80.0] Cardiomyopathy, nonischemic (HCC) [I42.8] 04/14/2013 Abnormality of gait [R26.9] 05/04/2014 Ganglion cyst of right foot [M67.471] 09/09/2015 Biventricular ICD (implantable cardioverter-def*10/10/2015 Uncontrolled type 2 diabetes mellitus with diab*12/21/2015 Restless leg syndrome [G25.81] 02/09/2016 Peroneal tendinitis [M76.70] 07/12/2016 Pain in joint, ankle and foot [M25.579] 07/12/2016 Nonallergic rhinitis [J31.0] 04/03/2018 Cystocele with prolapse [N81.4] 11/12/2018 Urgency of urination [R39.15] 11/12/2018 Mixed incontinence [N39.46] 11/12/2018 Obesity, Class II, BMI 35-39.9 [E66.9] 01/22/2023 Hyperlipidemia, mixed [E78.2] 05/20/2023 Encounter Status:Closed by JEANIE MURPHY on 12/30/23[facility] 12-27-2023 NoteHNO ID: [id number] Author: SONIA CR [facility] Service: ? Author Type: Pharmacist Type: Progress Notes Filed: 12/27/2023 13:59 Note Text: As documented in separate encounter - lowering dose victoza to see if improves nausea. Needs to schedule external testing. Can get brendon drops OTC to help with nausea. Will defer to provider if he would like to do acute script for complaint. Sonia Cr, [facility]06-14-2024 NoteHNO ID: [id number] Author: JEANIE MURPHY RN Service: ? Author Type: Registered Nurse Type: Progress Notes Filed: 12/27/2023 13:19 Note Text: PRIMARY CARE COORDINATION QUICK NOTE Provider Action/FYI Patient identified by name and date . PCC attempted to contact patient to make her aware PCP would like to decrease Victoza to 1.2 mg daily. PCC unable to leave message because mailbox is full. Jeanie Murphy RN December 27, 2023 1:18 [facility]06-14-2024 History of Present illness Narrative* Jeanie Murphy RN - 12/27/2023 1:17 PM EDT PRIMARY CARE COORDINATION QUICK NOTE Provider Action/FYI Patient identified by name and date . PCC attempted to contact patient to make her aware PCP would like to decrease Victoza to 1.2 mg daily. PCC unable to leave message because mailbox is full. Jeanie Murphy RN December 27, 2023 1:18 PM documented in this encounterAdena [facility]06-14-2024 NoteHNO ID: [id number] Author: SONIA CR bhupendra Service: ? Author Type: Pharmacist Type: Progress Notes Filed: 12/30/2023 10:29 Note Text: Collaboration with provider. Concern about new nausea with further work up needed. Discussed discontinuing therapy vs lowering. At this time, will lower dose but continue until further testing completed. ASSESSMENT/PLAN: 1. Type 2 diabetes mellitus with diabetic neuropathy, with long-term current use of insulin ([facility]) - ICD9: 250.60, 357.2, V58.67, ICD10: E11.40, Z79.4 (primary diagnosis) - INSULIN LISPRO (U-100) 100 UNIT/ML SUBCUTANEOUS PEN - NM GASTRIC EMPTYING SOLID - LIRAGLUTIDE 0.6 MG/0.1 ML (18 MG/3 ML) SUBCUTANEOUS PEN INJECTOR 2. Dyspepsia - ICD9: 536.8, ICD10: R10.13 - NM GASTRIC EMPTYING SOLID 3. Nausea - ICD9: 787.02, ICD10: R11.0 - NM GASTRIC EMPTYING SOLID Sonia Cr [facility]06-14-2024 History of Present illness Narrative* Sonia Cr RPh - 12/27/2023 1:06 PM EDT Collaboration with provider. Concern about new nausea with further work up needed. Discussed discontinuing therapy vs lowering. At this time, will lower dose but continue until further testing completed. ASSESSMENT/PLAN: 1. Type 2 diabetes mellitus with diabetic neuropathy, with long-term current use of insulin ([facility]) -ICD9: 250.60, 357.2, V58.67, ICD10: E11.40, Z79.4 (primary diagnosis) - INSULIN LISPRO (U-100) 100 UNIT/ML SUBCUTANEOUS PEN - NM GASTRIC EMPTYING SOLID - LIRAGLUTIDE 0.6 MG/0.1 ML (18 MG/3 ML) SUBCUTANEOUS PEN INJECTOR 2. Dyspepsia - ICD9: 536.8, ICD10: R10.13 - NM GASTRIC EMPTYING SOLID 3. Nausea - ICD9: 787.02, ICD10: R11.0 - NM GASTRIC EMPTYING SOLID Sonia Cr RPh * Manny Evans MD - 12/24/2023 1:40 PM EDT Images from the original note were not included. [facility] [address] [place] [address] [facility] [address] [place], [place] [address] Visit Date: December 23, 2023 Name: Michelle Jules Date of : 1965 MRN/E #: [id number] Chief Complaint: No chief complaint on file. 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 - exercise - Walking 1 mile every day Reflux symptoms Will have reflux symptoms at dinner Happens after she eats Feels like laying in throat, will regurgitate/vomit hours later 2 times each week Feels like it will sit there ALLERGIES Allergen Reactions Adhesive Tape (Natty* Itching Latex, Natural Rubb* Rash Metformin Other: See Comments Caused arrhythmia issues Seasonal Allergies Itching Simvastatin Other: See Comments myalgia Current Outpatient Medications Medication Sig spironolactone (ALDACTONE) 25 mg tablet potassium chloride ER (KLOR-CON) [address] (PROTONIX) 40 mg tablet Take 1 tablet by mouth every 12 hours. glyBURIDE 5 mg tablet Take 2 tablets by mouth daily with breakfast. insulin glargine U-300 conc (TOUJEO MAX U-300 SOLOSTAR) 300 unit/mL (3 mL) inpn Inject 90 Units subcutaneously every morning. liraglutide (VICTOZA) 0.6 mg/ 0.1 ml subcutaneous pen injector Inject 1.8 mg subcutaneously once daily. insulin needles, DISPOSABLE, (PEN NEEDLE) 31 gauge x 5/16 Use 5 needles per dose. 5 per day for her insulin. DULoxetine (CYMBALTA) 60 mg capsule Take 1 capsule by mouth two times a day. magnesium oxide (MAG-OX) 400 mg (241.3 mg magnesium) tablet Take 1 tablet by mouth two times a day. Pramipexole 0.75 mg tablet Take 1 tablet by mouth daily at bedtime. ergocalciferol 50,000 unit capsule (VITAMIN D2, DRISDOL) Take 1 capsule by mouth one time a week. flash glucose sensor (FREESTYLE LANCE 2 SENSOR) kit Use to check blood sugar before meals and at bedtime Docusate Sodium (STOOL SOFTENER) 100 mg tab Take 1 capsule by mouth twice daily as needed acetylcyst/ziyuhaP51/levomefol (METAFOLBIC PLUS ORAL) Take by mouth. furosemide (LASIX) 40 mg tablet Take 1 tablet by mouth once daily. cetirizine (ZYRTEC) 10 mg tablet Take 1 tablet by mouth once daily as needed (for itching, sneezingor runny nose). blood sugar diagnostic (ICVRxUCH ULTRA TEST) test strip USE TO TEST BLOOD SUGAR THREE TIMES A DAY aspirin, enteric coated (ECOTRIN LOW STRENGTH) 81 mg EC tablet Take 1 tablet by mouth once daily. atorvastatin (LIPITOR) 10 mg tablet Take 1 tablet by mouth once daily. carvedilol (COREG) 25 mg tablet Take 1 tablet by mouth twice daily. insulin lispro (HUMALOG KWIKPEN) 100 unit/mL INJECT 20 UNITS SUBCUTANEOUSLY THREE TIMES A DAY BEFORE MEALS gabapentin (NEURONTIN) 300 mg capsule Take 1 capsule by mouth daily at bedtime for 270 days. Current Facility-Administered Medications Medication Dose Route Frequency sodium chloride 0.9 % (flush) 10 mL (BD POSIFLUSH) 10 mL INTRAVENOUS DIRECTED PRN I have confirmed and edited as necessary the chief complaint, medications, past medical, family andsocial histories. Objective 12/24/23 1318 BP: 119/63 Pulse: 77 Resp: 16 Temp: 36.4 C (97.6 F) TempSrc: Temporal SpO2: 97% Weight: 238 lb 9.6 oz (108.2 kg) Height: 5' 9 (1.753 m) Body mass index is 35.24 kg/m . Physical Exam Vitals and nursing note reviewed. Constitutional: Appearance: Normal appearance. HENT: Nose: Nose normal. Eyes: Conjunctiva/sclera: Conjunctivae normal. Cardiovascular: Rate and Rhythm: Normal rate and regular rhythm. Pulses: Normal pulses. Heart sounds: Normal heart sounds. Pulmonary: Effort: Pulmonary effort is normal. Breath sounds: Normal breath sounds. Musculoskeletal: Right lower leg: No edema. Left lower leg: No edema. Skin: General: Skin is warm and dry. Neurological: Mental Status: She is alert. Mental status is at baseline. Psychiatric: Mood and Affect: Mood normal. Behavior: Behavior normal. Results for orders placed or performed in visit on 12/24/23 HEMOGLOBIN A1C (POC) Result Value Ref Range Hemoglobin A1C (POCT) 10.7 (A) 4.3 - 5.6 % *Note: Due to a large number of results and/or encounters for the requested time period, some results have not been displayed. A complete set of results can be found in Results Review. Assessment / Plan Michelle was seen today for diabetes and gerd. Diagnoses and all orders for this visit: Type 2 diabetes mellitus with diabetic neuropathy, with long-term current use of insulin ([facility]) - improved control, A1C 10.7 today - improved diet and exercise - INCREASE insulin lispro (HUMALOG KWIKPEN) 100 unit/mL; INJECT 20 UNITS SUBCUTANEOUSLY THREE TIMESA DAY BEFORE MEALS - continue other medications Dyspepsia Nausea - likely due to degree of gastroparesis that is exacerbated by Victoza - DECREASE Victoza to 1.2mg daily - consider gastroparesis workup in future if does not improve Other orders - HEMOGLOBIN A1C (POC) Discussed the above with the patient using shared decision-making. The patient is in agreement with the diagnostic and treatment plans. Return in about 4 weeks (around 01/21/2024) for f/u with Dr. Cr for diabetes . Provider: Manny Evans MD Date: December 23, 2023 Time: 9:03 PM documented [facility] NoteHNO ID: [id number] Author: MANNY EVANS MD Service: ? Author Type: Resident Type: Progress Notes Filed: 12/27/2023 12:41 Note Text: Attempted to call patient but went directly to and did not allow message. Will try again later.[facility]06-14-2024 NotePatient Outreach (AGACM) MICHELLE JULES ([id number]) 1965 F Date Time Provider Department 12/27/23 JEANIE MURPHY [facility] During your visit today, we recorded the following information about you: Jeanie Murphy, [place] 12/27/2023 1:19 PM Signed PRIMARY CARE COORDINATION QUICK NOTE Provider Action/FYI Patient identified by name and date . PCC attempted to contact patient to make her aware PCP would like to decrease Victoza to 1.2 mg daily. PCC unable to leave message because mailbox is full. Jeanie Murphy RN December 27, 2023 1:18 PM Allergies As of Date: 12/27/2023 Noted Allergy Reaction ADHESIVE TAPE (ROSINS) 03/27/2006 9 - Itching LATEX, NATURAL RUBBER 09/09/2018 2 - Rash METFORMIN 07/22/2018 14 - Other: See Comments Comments: Caused arrhythmia issues SEASONAL ALLERGIES 03/01/2023 9 - Itching SIMVASTATIN 11/04/2012 14 - Other: See Comments Comments: myalgia Date Reviewed: 12/24/2023 Reviewed by: Manny Evans MD - Fully Assessed Reason for Visit: Flux Tube Attendant Chronic Care [[id number]] Cmt: Attempted outreach Prescriptions as of 12/27/2023 - liraglutide (VICTOZA) 0.6 mg/ 0.1 ml subcutaneous pen injector Inject 1.2 mg subcutaneously once daily. - spironolactone (ALDACTONE) 25 mg tablet - potassium chloride ER (KLOR-CON) 20 mEq tablet - insulin lispro (HUMALOG KWIKPEN) 100 unit/mL INJECT 20 UNITS SUBCUTANEOUSLY THREE TIMES A DAY BEFORE MEALS - pantoprazole DR (PROTONIX) 40 mg tablet Take 1 tablet by mouth every 12 hours. - glyBURIDE 5 mg tablet Take 2 tablets by mouth daily with breakfast. - insulin glargine U-300 conc (TOUJEO MAX U-300 SOLOSTAR) 300 unit/mL (3 mL) inpn Inject 90 Units subcutaneously every morning. - insulin needles, DISPOSABLE, (PEN NEEDLE) 31 gauge x 5/16 Use 5 needles per dose. 5 per day for her insulin. - DULoxetine (CYMBALTA) 60 mg capsule Take 1 capsule by mouth two times a day. - magnesium oxide (MAG-OX) 400 mg (241.3 mg magnesium) tablet Take 1 tablet by mouth two times a day. - Pramipexole 0.75 mg tablet Take 1 tablet by mouth daily at bedtime. - ergocalciferol 50,000 unit capsule (VITAMIN D2, DRISDOL) Take 1 capsule by mouth one time a week. - gabapentin (NEURONTIN) 300 mg capsule Take 1 capsule by mouth daily at bedtime for 270 days. - flash glucose sensor (FREESTYLE LANCE 2 SENSOR) kit Use to check blood sugar before meals and at bedtime - Docusate Sodium (STOOL SOFTENER) 100 mg tab Take 1 capsule by mouth twice daily as needed - acetylcyst/jfagmmH00/levomefol (METAFOLBIC PLUS ORAL) Take by mouth. - furosemide (LASIX) 40 mg tablet Take 1 tablet by mouth once daily. - cetirizine (ZYRTEC) 10 mg tablet Take 1 tablet by mouth once daily as needed (for itching, sneezing or runny nose). - losartan (COZAAR) 25 mg tablet (Discontinued) Take 1 tablet by mouth once daily. - blood sugar diagnostic (ICVRxUCH ULTRA TEST) test strip USE TO TEST BLOOD SUGAR THREE TIMES A DAY - aspirin, enteric coated (ECOTRIN LOW STRENGTH) 81 mg EC tablet Take 1 tablet by mouth once daily. - atorvastatin (LIPITOR) 10 mg tablet Take 1 tablet by mouth once daily. - carvedilol (COREG) 25 mg tablet Take 1 tablet by mouth twice daily. 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.* Vitamin D deficiency [E55.9] Family history of colon cancer [Z80.0] Cardiomyopathy, nonischemic (HCC) [I42.8] 04/14/2013 Abnormality of gait [R26.9] 05/04/2014 Ganglion cyst of right foot [M67.471] 09/09/2015 Biventricular ICD (implantable cardioverter-def*10/10/2015 Uncontrolled type 2 diabetes mellitus with diab*12/21/2015 Restless leg syndrome [G25.81] 02/09/2016 Peroneal tendinitis [M76.70] 07/12/2016 Pain in joint, ankle and foot [M25.579] 07/12/2016 Nonallergic rhinitis [J31.0] 04/03/2018 Cystocele with prolapse [N81.4] 11/12/2018 Urgency of urination [R39.15] 11/12/2018 Mixed incontinence [N39.46] 11/12/2018 Obesity, Class II, BMI 35-39.9 [E66.9] 01/22/2023 Hyperlipidemia, mixed [E78.2] 05/20/2023 Encounter Status:Closed by JEANIE MURPHY on 12/27/23[facility] 12-26-2023 NoteHNO ID: [id number] Author: JEANIE MURPHY, RN Service: ? Author Type: Registered Nurse Type: Progress Notes Filed: 12/26/2023 11:52 Note Text: AG PRIMARY CARE COORDINATION FOLLOW-UP NOTE Provider Action/FYI: Patient identified by name and date of : YES Spoke to: patient Summary: PCC contacted patient for PCC follow up. Patient had appointment with PCP on 12/24/2023. PCC reviewed appointment and medication change with patient. Patient said she is still having issues with vomiting. Patient said she vomited today after eating her cereal. Patient said the vomit had no blood in it and was digested and partially digested cereal that came up. Patient said the vomiting started about 5 days ago. Prior to this patient said she had no issues with her stomach. Patient believes she is having issues with acid reflux and this is why she is vomiting. Patient willing to make any changes she has to with her medications to help. Patient has no other issues or concerns at this time. Health leads screening tool questions performed? No N/A Concerns: Goals: Active Goals - Current status as of 12/26/2023 at 11:46 AM Most Recent Blood Pressure < 130/80 119/63 (12/24/2023) Confirm medication adherence of all prescribed medications and uses them correctly Hemoglobin A1C < 7 6.8 (02/23/2019) LDL at or below 100 mg/dL or on a high statin Health Maintenance Topics with due status: Overdue Topic Date Due Hepatitis B Vaccine Never done Mammogram Screening 12/03/2018 Colorectal Cancer Screening 09/27/2021 Behavioral Health Screening Never done Pbx Installer plan for next outreach: Will follow-up 2 weeks Signature: Jeanie Murphy RN [facility] 25[facility]06-13-[facility]24 History of Present illness Narrative* Jeanie Murphy RN - 12/26/2023 11:46 AM EDT AG PRIMARY CARE COORDINATION FOLLOW-UP NOTE Provider Action/FYI: Patient identified by name and date of : YES Spoke to: patient Summary: PCC contacted patient for PCC follow up. Patient had appointment with PCP on 12/24/2023. PCC reviewed appointment and medication change with patient. Patient said she is still having issues with vomiting. Patient said she vomited today aftereating her cereal. Patient said the vomit had no blood in it and was digested and partially digested cereal that came up. Patient said the vomiting started about 5 days ago. Prior to this patient said she had no issues with her stomach. Patient believes she is having issues with acid reflux and this is why she is vomiting. Patient willing to make any changes she has to with her medications to help. Patient has no other issues or concerns at this time. Health leads screening tool questions performed? No N/A Concerns: Goals: Active Goals - Current status as of 12/26/2023 at 11:46 AM Most Recent Blood Pressure < 130/80 119/63 (12/24/2023) Confirm medication adherence of all prescribed medications and uses them correctly Hemoglobin A1C < 7 6.8 (02/23/2019) LDL at or below 100 mg/dL or on a high statin Health Maintenance Topics with due status: Overdue Topic Date Due Hepatitis B Vaccine Never done Mammogram Screening 12/03/2018 Colorectal Cancer Screening 09/27/2021 Behavioral Health Screening Never done Pbx Installer plan for next outreach: Will follow-up 2 weeks Signature: Jeanie Murphy RN December 26, 2023 documented in [facility] encounter[facility] NotePatient Outreach (AGA) MICHELLE JULES Shayla ([id number]) 1965 F Date Time Provider Department 12/26/23 JEANIE MURPHY [facility] During your visit today, we recorded the following information about you: Jeanie Murphy RN 12/26/2023 11:52 AM Signed PRIMARY CARE COORDINATION FOLLOW-UP NOTE Provider Action/FYI: Patient identified by name and date of : YES Spoke to: patient Summary: PCC contacted patient for PCC follow up. Patient had appointment with PCP on 12/24/2023. PCC reviewed appointment and medication change with patient. Patient said she is still having issues with vomiting. Patient said she vomited today after eating her cereal. Patient said the vomit had no blood in it and was digested and partially digested cereal that came up. Patient said the vomiting started about 5 days ago. Prior to this patient said she had no issues with her stomach. Patient believes she is having issues with acid reflux and this is why she is vomiting. Patient willing to make any changes she has to with her medications to help. Patient has no other issues or concerns at this time. Health leads screening tool questions performed? No N/A Concerns: Goals: Active Goals - Current status as of 12/26/2023 at 11:46 AM Most Recent Blood Pressure < 130/80 119/63 (12/24/2023) Confirm medication adherence of all prescribed medications and uses them correctly Hemoglobin A1C < 7 6.8 (02/23/2019) LDL at or below 100 mg/dL or on a high statin Health Maintenance Topics with due status: Overdue Topic Date Due Hepatitis B Vaccine Never done Mammogram Screening 12/03/2018 Colorectal Cancer Screening 09/27/2021 Behavioral Health Screening Never done Pbx Installer plan for next outreach: Will follow-up 2 weeks Signature: Jeanie Murphy RN December 26, 2023 Manny Evans MD 12/27/2023 12:41 PM Signed Attempted to call patient but went directly to and did not allow message. Will try again later. Sonia Cr bhupendra 12/27/2023 1:59 PM Signed As documented in separate encounter - lowering dose victoza to see if improves nausea. Needs to schedule external testing. Can get brendon drops OTC to help with nausea. Will defer to provider if he would like to do acute script for complaint. Sonia Cr [facility] Allergies As of Date: 12/26/2023 Noted Allergy Reaction ADHESIVE TAPE (ROSINS) 03/27/2006 9 - Itching LATEX, NATURAL RUBBER 09/09/2018 2 - Rash METFORMIN 07/22/2018 14 - Other: See Comments Comments: Caused arrhythmia issues SEASONAL ALLERGIES 03/01/2023 9 - Itching SIMVASTATIN 11/04/2012 14 - Other: See Comments Comments: myalgia Date Reviewed: 12/24/2023 Reviewed by: Manny Evans MD - Fully Assessed Reason for Visit: Flux Tube Attendant Chronic Care [[id number]] Cmt: PCC follow up Prescriptions as of 12/27/2023 - liraglutide (VICTOZA) 0.6 mg/ 0.1 ml subcutaneous pen injector Inject 1.2 mg subcutaneously once daily. - spironolactone (ALDACTONE) 25 mg tablet - potassium chloride ER (KLOR-CON) 20 mEq tablet - insulin lispro (HUMALOG KWIKPEN) 100 unit/mL INJECT 20 UNITS SUBCUTANEOUSLY THREE TIMES A DAY BEFORE MEALS - pantoprazole DR (PROTONIX) 40 mg tablet Take 1 tablet by mouth every 12 hours. - glyBURIDE 5 mg tablet Take 2 tablets by mouth daily with breakfast. - insulin glargine U-300 conc (TOUJEO MAX U-300 SOLOSTAR) 300 unit/mL (3 mL) inpn Inject 90 Units subcutaneously every morning. - insulin needles, DISPOSABLE, (PEN NEEDLE) 31 gauge x 5/16 Use 5 needles per dose. 5 per day for her insulin. - DULoxetine (CYMBALTA) 60 mg capsule Take 1 capsule by mouth two times a day. - magnesium oxide (MAG-OX) 400 mg (241.3 mg magnesium) tablet Take 1 tablet by mouth two times a day. - Pramipexole 0.75 mg tablet Take 1 tablet by mouth daily at bedtime. - ergocalciferol 50,000 unit capsule (VITAMIN D2, DRISDOL) Take 1 capsule by mouth one time a week. - gabapentin (NEURONTIN) 300 mg capsule Take 1 capsule by mouth daily at bedtime for 270 days. - flash glucose sensor (FREESTYLE LANCE 2 SENSOR) kit Use to check blood sugar before meals and at bedtime - Docusate Sodium (STOOL SOFTENER) 100 mg tab Take 1 capsule by mouth twice daily as needed - acetylcyst/wamcapQ65/levomefol (METAFOLBIC PLUS ORAL) Take by mouth. - furosemide (LASIX) 40 mg tablet Take 1 tablet by mouth once daily. - cetirizine (ZYRTEC) 10 mg tablet Take 1 tablet by mouth once daily as needed (for itching, sneezing or runny nose). - losartan (COZAAR) 25 mg tablet (Discontinued) Take 1 tablet by mouth once daily. - blood sugar diagnostic ([employer] CoachworksTOUCH ULTRA TEST) test strip USE TO TEST BLOOD SUGAR THREE TIMES A DAY - aspirin, enteric coated (ECOTRIN LOW STRENGTH) 81 mg EC tablet Take 1 tablet by mouth once daily. - atorvastatin (LIPITOR) 10 mg tablet Take 1 tablet by mouth once daily. - carvedilol (COREG) 25 mg tablet (more content not included)...[facility]06-11-2024 NoteHNO ID: [id number] Author: MANNY EVANS MD Service: ? Author Type: Resident Type: Progress Notes Filed: 12/30/2023 10:29 Note Text: [facility] [address] [place] [address] [facility] [address] [place] [phone] Visit Date: December 23, 2023 Name: Michelle Jules Date of : 1965 MRN/E #: [id number] Chief Complaint: No chief complaint on file. 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 - exercise - Walking 1 mile every day Reflux symptoms Will have reflux symptoms at dinner Happens after she eats Feels like laying in throat, will regurgitate/vomit hours later 2 times each week Feels like it will sit there ALLERGIES Allergen Reactions Adhesive Tape (Natty* Itching Latex, Natural Rubb* Rash Metformin Other: See Comments Caused arrhythmia issues Seasonal Allergies Itching Simvastatin Other: See Comments myalgia Current Outpatient Medications Medication Sig spironolactone (ALDACTONE) 25 mg tablet potassium chloride ER (KLOR-CON) [address] (PROTONIX) 40 mg tablet Take 1 tablet by mouth every 12 hours. glyBURIDE 5 mg tablet Take 2 tablets by mouth daily with breakfast. insulin glargine U-300 conc (TOUJEO MAX U-300 SOLOSTAR) 300 unit/mL (3 mL) inpn Inject 90 Units subcutaneously every morning. liraglutide (VICTOZA) 0.6 mg/ 0.1 ml subcutaneous pen injector Inject 1.8 mg subcutaneously once daily. insulin needles, DISPOSABLE, (PEN NEEDLE) 31 gauge x 5/16 Use 5 needles per dose. 5 per day for her insulin. DULoxetine (CYMBALTA) 60 mg capsule Take 1 capsule by mouth two times a day. magnesium oxide (MAG-OX) 400 mg (241.3 mg magnesium) tablet Take 1 tablet by mouth two times a day. Pramipexole 0.75 mg tablet Take 1 tablet by mouth daily at bedtime. ergocalciferol 50,000 unit capsule (VITAMIN D2, DRISDOL) Take 1 capsule by mouth one time a week. flash glucose sensor (FREESTYLE LANCE 2 SENSOR) kit Use to check blood sugar before meals and at bedtime Docusate Sodium (STOOL SOFTENER) 100 mg tab Take 1 capsule by mouth twice daily as needed acetylcyst/jnfhgnL70/levomefol (METAFOLBIC PLUS ORAL) Take by mouth. furosemide (LASIX) 40 mg tablet Take 1 tablet by mouth once daily. cetirizine (ZYRTEC) 10 mg tablet Take 1 tablet by mouth once daily as needed (for itching, sneezing or runny nose). blood sugar diagnostic ([place] [employer] ULTRA TEST) test strip USE TO TEST BLOOD SUGAR THREE TIMES A DAY aspirin, enteric coated (ECOTRIN LOW STRENGTH) 81 mg EC tablet Take 1 tablet by mouth once daily. atorvastatin (LIPITOR) 10 mg tablet Take 1 tablet by mouth once daily. carvedilol (COREG) 25 mg tablet Take 1 tablet by mouth twice daily. insulin lispro (HUMALOG KWIKPEN) 100 unit/mL INJECT 20 UNITS SUBCUTANEOUSLY THREE TIMES A DAY BEFORE MEALS gabapentin (NEURONTIN) 300 mg capsule Take 1 capsule by mouth daily at bedtime for 270 days. Current Facility-Administered Medications Medication Dose Route Frequency sodium chloride 0.9 % (flush) 10 mL (BD POSIFLUSH) 10 mL INTRAVENOUS DIRECTED PRN I have confirmed and edited as necessary the chief complaint, medications, past medical, family and social histories. Objective 12/24/23 1318 BP: 119/63 Pulse: 77 Resp: 16 Temp: 36.4 ?C (97.6 ?F) TempSrc: Temporal SpO2: 97% Weight: 238 lb 9.6 oz (108.2 kg) Height: 5' 9 (1.753 m) Body mass index is 35.24 kg/m?. Physical Exam Vitals and nursing note reviewed. Constitutional: Appearance: Normal appearance. HENT: Nose: Nose normal. Eyes: Conjunctiva/sclera: Conjunctivae normal. Cardiovascular: Rate and Rhythm: Normal rate and regular rhythm. Pulses: Normal pulses. Heart sounds: Normal heart sounds. Pulmonary: Effort: Pulmonary effort is normal. Breath sounds: Normal breath sounds. Musculoskeletal: Right lower leg: No edema. Left lower leg: No edema. Skin: General: Skin is warm and dry. Neurological: Mental Status: She is alert. Mental status is at baseline. Psychiatric: Mood and Affect: Mood normal. Behavior: Behavior normal. Results for orders placed or performed in visit on 12/24/23 HEMOGLOBIN A1C (POC) Result Value Ref Range Hemoglobin A1C (POCT) 10.7 (A) 4.3 - 5.6 % *Note: Due to a large number of results and/or encounters for the requested time period, some results have not been displayed. A complete set of results can be found in Results Review. Assessment / Plan Michelle was seen today for diabetes and gerd. Diagnoses (more content not included)...[facility]05-24-2024 NoteHNO ID: [id number] Author: JEANIE MURPHY RN Service: ? Author Type: Registered Nurse Type: Progress Notes Filed: 12/06/2023 12:15 Note Text: PRIMARY CARE COORDINATION QUICK NOTE Provider Action/FYI Patient identified by name and date . PCC attempted to contact patient to reschedule Pharm D appointment. PCC unable to leave a message. Jeanie Murphy RN December 06, 2023 12:14 [facility]05-24-2024 History of Present illness Narrative* Jeanie Murphy RN - 12/06/2023 12:14 PM EDT PRIMARY CARE COORDINATION QUICK NOTE Provider Action/FYI Patient identified by name and date . PCC attempted to contact patient to reschedule Pharm D appointment. PCC unable to leave a message. Jeanie Murphy RN December 06, 2023 12:14 PM documented in this encounterAdena [facility] NotePatient Outreach ([facility]) MICHELLE JULES ([id number]) 1965 F Date Time Provider Department 12/06/23 JEANIE MURPHY [facility] During your visit today, we recorded the following information about you: Jeanie Murphy RN 12/06/2023 12:15 PM Signed PRIMARY CARE COORDINATION QUICK NOTE Provider Action/FYI Patient identified by name and date . PCC attempted to contact patient to reschedule Pharm D appointment. PCC unable to leave a message. Jeanie Murphy RN December 06, 2023 12:14 PM Allergies As of Date: 12/06/2023 Noted Allergy Reaction ADHESIVE TAPE (ROSINS) 03/27/2006 9 - Itching LATEX, NATURAL RUBBER 09/09/2018 2 - Rash METFORMIN 07/22/2018 14 - Other: See Comments Comments: Caused arrhythmia issues SEASONAL ALLERGIES 03/01/2023 9 - Itching SIMVASTATIN 11/04/2012 14 - Other: See Comments Comments: myalgia Date Reviewed: 10/30/2023 Reviewed by: Georgette Ness LPN - Fully Assessed Reason for Visit: Flux Tube Attendant Chronic Care [1004] Cmt: Attempted PCC follow up Prescriptions as of 12/06/2023 - insulin lispro (HUMALOG KWIKPEN) 100 unit/mL INJECT 18 UNITS SUBCUTANEOUSLY THREE TIMES A DAY BEFORE MEALS - pantoprazole DR (PROTONIX) 40 mg tablet Take 1 tablet by mouth every 12 hours. - glyBURIDE 5 mg tablet Take 2 tablets by mouth daily with breakfast. - insulin glargine U-300 conc (TOUJEO MAX U-300 SOLOSTAR) 300 unit/mL (3 mL) inpn Inject 90 Units subcutaneously every morning. - liraglutide (VICTOZA) 0.6 mg/ 0.1 ml subcutaneous pen injector Inject 1.8 mg subcutaneously once daily. - insulin needles, DISPOSABLE, (PEN NEEDLE) 31 gauge x 5/16 Use 5 needles per dose. 5 per day for her insulin. - DULoxetine (CYMBALTA) 60 mg capsule Take 1 capsule by mouth two times a day. - magnesium oxide (MAG-OX) 400 mg (241.3 mg magnesium) tablet Take 1 tablet by mouth two times a day. - Pramipexole 0.75 mg tablet Take 1 tablet by mouth daily at bedtime. - ergocalciferol 50,000 unit capsule (VITAMIN D2, DRISDOL) Take 1 capsule by mouth one time a week. - gabapentin (NEURONTIN) 300 mg capsule Take 1 capsule by mouth daily at bedtime for 270 days. - flash glucose sensor (FREESTYLE LANCE 2 SENSOR) kit Use to check blood sugar before meals and at bedtime - Docusate Sodium (STOOL SOFTENER) 100 mg tab Take 1 capsule by mouth twice daily as needed - acetylcyst/qborqaZ08/levomefol (METAFOLBIC PLUS ORAL) Take by mouth. - furosemide (LASIX) 40 mg tablet Take 1 tablet by mouth once daily. - cetirizine (ZYRTEC) 10 mg tablet Take 1 tablet by mouth once daily as needed (for itching, sneezing or runny nose). - losartan (COZAAR) 25 mg tablet (Discontinued) Take 1 tablet by mouth once daily. - blood sugar diagnostic (ONETOUCH ULTRA TEST) test strip USE TO TEST BLOOD SUGAR THREE TIMES A DAY - aspirin, enteric coated (ECOTRIN LOW STRENGTH) 81 mg EC tablet Take 1 tablet by mouth once daily. - atorvastatin (LIPITOR) 10 mg tablet Take 1 tablet by mouth once daily. - carvedilol (COREG) 25 mg tablet Take 1 tablet by mouth twice daily. 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.* Vitamin D deficiency [E55.9] Family history of colon cancer [Z80.0] Cardiomyopathy, nonischemic (HCC) [I42.8] 04/14/2013 Abnormality of gait [R26.9] 05/04/2014 Ganglion cyst of right foot [M67.471] 09/09/2015 Biventricular ICD (implantable cardioverter-def*10/10/2015 Uncontrolled type 2 diabetes mellitus with diab*12/21/2015 Restless leg syndrome [G25.81] 02/09/2016 Peroneal tendinitis [M76.70] 07/12/2016 Pain in joint, ankle and foot [M25.579] 07/12/2016 Nonallergic rhinitis [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 12-05-2023 Telephone encounter Note* Telephone Encounter - Cristiane Brooks - 12/05/2023 2:35 PM EDT Patient said she missed her appointment bc she came and got lost. Attempted to reach out to pt to reschedule and pt phone had a really bad connection. Tried calling her back and it went to a busy tone. [facility]05-23-2024 Miscellaneous Notes* Telephone Encounter - Cristiane Brooks - 12/05/2023 2:35 PM EDT Patient said she missed her appointment bc she came and got lost. Attempted to reach out to pt to reschedule and pt phone had a really bad connection. Tried calling her back and it went to a busy tone. * Telephone Encounter - Cristiane Brooks - 12/05/2023 2:33 PM EDT ----- Message from Tayler Chin sent at 12/05/2023 2:09 PM EDT ----- [address] [place] [address]/FAMP AG ACC// Homar Vasques MD / [Callback- reschedule pharmacist appointment] Subject Line Format: Medicine / Homar Vasques MD / [Callback-reschedule pharmacist appointment] Select Department Name For Pool Routing Assistance: FAMP AG ACC CFM => AG FAMP ACC CFM APPT CTR TRIAGE POOL [[id number]] Patient: Michelle Jules Date of : 1965 Primary Care Provider: Homar Vasques MD The reason I am contacting the office is: Call Back - Patient is requesting a call back from PCP Office about rescheduling appointment for 12/05/23 at 2:00pm with the pharmacist. Person calling if other than patient: N/A Best contact number: [phone] Thank you, Tayler Chin December 05, 2023 2:09 PM documented in this encounterAdena [facility] Center05-23-2024 Telephone encounter Note * Telephone Encounter - Cristiane Brooks - 12/05/2023 2:33 PM EDT ----- Message from Tayler Chin sent at 12/05/2023 2:09 PM EDT ----- [facility] [place]/FAMP AG ACC// Homar Vasques MD / [Callback- reschedule pharmacist appointment] Subject Line Format: Medicine / Homar Vasques MD / [Callback-reschedule pharmacist appointment] Select Department Name For Pool Routing Assistance: FAMP AG ACC CFM => AG FAMP ACC CFM APPT CTR TRIAGE POOL [[id number]] Patient: Michelle Jules Date of : 1965 Primary Care Provider: Homar Vasques MD The reason I am contacting the office is: Call Back - Patient is requesting a call back from PCP Office about rescheduling appointment for 12/05/23 at 2:00pm with the pharmacist. Person calling if other than patient: N/A Best contact number: [phone] Thank you, Tayler Chin December 05, 2023 2:09 PM [facility]05-23-2024 Telephone encounter Note* Telephone Encounter - Sonia Cr [facility] - 12/05/2023 2:18 PM EDT Patient no showed appt with pharmd today. Attempted telephone outreach - unable to reach. A1c due at this time; order placed. Please have patient obtain and reschedule with pharmd thanks! Hemoglobin A1C (POCT) Date Value Ref Range Status 08/30/2023 13.7 (A) 4.3 - 5.6 % Final Comment: Location:[facility], [address] [place] [address], [id number] Point of care (POC) Hemoglobin A1c (HGBA1C) testing is intended to assess glucose control and provide a management tool for patients known to have diabetes and their healthcare providers. Target HGBA1C levels may depend on specific clinical circumstances. POC HGBA1C is not intended for use as a diagnostic or screening test; laboratory-based testing should be used for diagnostic purposes. The following information is supplemental and may not be applicable to specific diabetes management situations: The POC device sas bi developer provides a normal range of 4.2% to 6.5% for the HGBA1C POC test. However, the [place] [employer] guidelines indicate that patients with HGBA1C in the range of 5.7% to 6.4% are at increased risk for development of diabetes and that intervention by lifestyle modification may be beneficial. A HGBA1C level greater than or equal to 6.5% is considered diagnostic of diabetes, pending confirmatory testing. Use of HGBA1C testing to evaluate glucose control may not be appropriate for patients with hemoglobin variants or other conditions (e.g. anemia) that alter red blood cell lifespan. [facility]05-23-2024 Miscellaneous Notes* Telephone Encounter - Sonia Cr RPh - 12/05/2023 2:18 PM EDT Patient no showed appt with pharmd today. Attempted telephone outreach - unable to reach. A1c due at this time; order placed. Please have patient obtain and reschedule with pharmd thanks! Hemoglobin A1C (POCT) Date Value Ref Range Status 08/30/2023 13.7 (A) 4.3 - 5.6 % Final Comment: Location:[facility], [address] [place] [address], [phone] Point of care (POC) Hemoglobin A1c (HGBA1C) testing is intended to assess glucose control and provide a management tool for patients known to have diabetes and their healthcare providers. Target HGBA1C levels may depend on specific clinical circumstances. POC HGBA1C is not intended for use as a diagnostic or screening test; laboratory-based testing should be used for diagnostic purposes. The following information is supplemental and may not be applicable to specific diabetes management situations: The POC device sas bi developer provides a normal range of 4.2% to 6.5% for the HGBA1C POC test. However, the [employer] [place] [employer] guidelines indicate that patients with HGBA1C in the range of 5.7% to 6.4% are at increased risk for development of diabetes and that intervention by lifestyle modification may be beneficial. A HGBA1C level greater than or equal to 6.5% is considered diagnostic of diabetes, pending confirmatory testing. Use of HGBA1C testing to evaluate glucose control may not be appropriate for patients with hemoglobin variants or other conditions (e.g. anemia) that alter red blood cell lifespan. documented in this encounterAdena Fayette Medical Center05-17-2024 NoteHNO ID: [id number] Author: JEANIE MURPHY RN Service: ? Author Type: Registered Nurse Type: Progress Notes Filed: 11/29/2023 16:11 Note Text: PRIMARY CARE COORDINATION QUICK NOTE Provider Action/FYI Patient identified by name and date . PCC contacted patient and made her aware Dr. Cr would like her to increase her humalog to 18 units. Patient repeated instructions back. Patient has no questions or concerns. Jeanie Murphy RN November 29, 2023 4:11 [facility]05-17-2024 History of Present illness Narrative* Jeanie Murphy RN - 11/29/2023 4:10 PM EDT PRIMARY CARE COORDINATION QUICK NOTE Provider Action/FYI Patient identified by name and date . PCC contacted patient and made her aware Dr. Cr would like her to increase her humalog to 18 units. Patient repeated instructions back. Patient has no questions or concerns. Jeanie Murphy RN November 29, 2023 4:11 PM * Sonia Cr RPh - 11/29/2023 3:53 PM EDT Please have patient INCREASE humalog to 18 units with meals. Thank you. Sonia Cr RPh * Jeanie Murphy RN - 11/29/2023 3:16 PM EDT AG PRIMARY CARE COORDINATION FOLLOW-UP NOTE Provider Action/FYI: Patient identified by name and date of : YES Spoke to: patient Summary: Dr. Cr, I contacted patient for PCC follow up. Patient is taking all medication as prescribed. Patient has not missed any shots, except for a few of her Noon lispro shots. Patient gave 7 day time in range readings. In range 70-180 14% Above range >181 86% Bellow range 0% Patient has Pharm D appointment 12/05/2023. PCC instructed patient to call [phone] with any questions or concerns. Health leads screening tool questions performed? No N/A Concerns: Goals: Active Goals - Current status as of 11/29/2023 at 3:23 PM Most Recent Blood Pressure < 130/80 119/71 (11/14/2023) Confirm medication adherence of all prescribed medications and uses them correctly Hemoglobin A1C < 7 6.8 (02/23/2019) LDL at or below 100 mg/dL or on a high statin Health Maintenance Topics with due status: Overdue Topic Date Due Hepatitis B Vaccine Never done Mammogram Screening 12/03/2018 Colorectal Cancer Screening 09/27/2021 Behavioral Health Screening Never done HbA1C 11/28/2023 Pbx Installer plan for next outreach: Will follow-up 3 weeks Signature: Jeanie Murphy RN November 29, 2023 documented in this encounterAdena Fayette Medical Center05-17-2024 Note* Addendum Note - Sonia Cr RPh - 11/29/2023 3:54 PM EDTAddended by: SONIA CR on: 11/29/2023 03:54 PM Modules accepted: Orders [facility]05-17-2024 Miscellaneous Notes* Addendum Note - Sonia Cr RPh - 11/29/2023 3:54 PM EDTAddended by: SONIA CR on: 11/29/2023 03:54 PM Modules accepted: Orders documented in this encounterAdena Fayette Medical Center05-17-2024 NoteHNO ID: [id number] Author: SONIA CR RPh Service: ? Author Type: Pharmacist Type: Progress Notes Filed: 11/29/2023 15:54 Note Text: Please have patient INCREASE humalog to 18 units with meals. Thank you. Sonia Cr [facility]05-17-2024 NoteHNO ID: [id number] Author: JEANIE MURPHY RN Service: ? Author Type: Registered Nurse Type: Progress Notes Filed: 11/29/2023 15:27 Note Text: AG PRIMARY CARE COORDINATION FOLLOW-UP NOTE Provider Action/FYI: Patient identified by name and date of : YES Spoke to: patient Summary: Dr. Cr, I contacted patient for PCC follow up. Patient is taking all medication as prescribed. Patient has not missed any shots, except for a few of her Noon lispro shots. Patient gave 7 day time in range readings. In range 70-180 14% Above range >181 86% Bellow range 0% Patient has Pharm D appointment 12/05/2023. PCC instructed patient to call [phone] with any questions or concerns. Health leads screening tool questions performed? No N/A Concerns: Goals: Active Goals - Current status as of 11/29/2023 at 3:23 PM Most Recent Blood Pressure < 130/80 119/71 (11/14/2023) Confirm medication adherence of all prescribed medications and uses them correctly Hemoglobin A1C < 7 6.8 (02/23/2019) LDL at or below 100 mg/dL or on a high statin Health Maintenance Topics with due status: Overdue Topic Date Due Hepatitis B Vaccine Never done Mammogram Screening 12/03/2018 Colorectal Cancer Screening 09/27/2021 Behavioral Health Screening Never done HbA1C 11/28/2023 Pbx Installer plan for next outreach: Will follow-up 3 weeks Signature: Jeanie Murphy RN [facility] NotePatient Outreach ([facility]) JULESMICHELLE LOW ([id number]) 1965 F Date Time Provider Department 11/29/23 JEANIE MURPHY [facility] During your visit today, we recorded the following information about you: Jeanie Murphy RN 11/29/2023 3:27 PM Signed PRIMARY CARE COORDINATION FOLLOW-UP NOTE Provider Action/FYI: Patient identified by name and date of : YES Spoke to: patient Summary: Dr. Cr, I contacted patient for PCC follow up. Patient is taking all medication as prescribed. Patient has not missed any shots, except for a few of her Noon lispro shots. Patient gave 7 day time in range readings. In range 70-180 14% Above range >181 86% Bellow range 0% Patient has Pharm D appointment 12/05/2023. PCC instructed patient to call [phone] with any questions or concerns. Health leads screening tool questions performed? No N/A Concerns: Goals: Active Goals - Current status as of 11/29/2023 at 3:23 PM Most Recent Blood Pressure < 130/80 119/71 (11/14/2023) Confirm medication adherence of all prescribed medications and uses them correctly Hemoglobin A1C < 7 6.8 (02/23/2019) LDL at or below 100 mg/dL or on a high statin Health Maintenance Topics with due status: Overdue Topic Date Due Hepatitis B Vaccine Never done Mammogram Screening 12/03/2018 Colorectal Cancer Screening 09/27/2021 Behavioral Health Screening Never done HbA1C 11/28/2023 Pbx Installer plan for next outreach: Will follow-up 3 weeks Signature: Jenaie Murphy RN November 29, 2023 Sonia Cr bhupendra 11/29/2023 3:54 PM Signed Please have patient INCREASE humalog to 18 units with meals. Thank you. Sonia Cr [facility] Sonia Cr [facility] 11/29/2023 3:54 PM Signed Addended by: SONIA CR on: 11/29/2023 03:54 PM Modules accepted: Jeanie Schroeder RN 11/29/2023 4:11 PM Signed PRIMARY CARE COORDINATION QUICK NOTE Provider Action/FYI Patient identified by name and date . PCC contacted patient and made her aware Dr. Cr would like her to increase her humalog to 18 units. Patient repeated instructions back. Patient has no questions or concerns. Jeanie Murphy RN November 29, 2023 4:11 PM Allergies As of Date: 11/29/2023 Noted Allergy Reaction ADHESIVE TAPE (ROSINS) 03/27/2006 9 - Itching LATEX, NATURAL RUBBER 09/09/2018 2 - Rash METFORMIN 07/22/2018 14 - Other: See Comments Comments: Caused arrhythmia issues SEASONAL ALLERGIES 03/01/2023 9 - Itching SIMVASTATIN 11/04/2012 14 - Other: See Comments Comments: myalgia Date Reviewed: 10/30/2023 Reviewed by: Georgette Ness LPN - Fully Assessed Reason for Visit: Flux Tube Attendant Chronic Care [3612] Cmt: PCC follow up Visit Diagnosis:Type 2 diabetes mellitus with diabetic neuropathy, with long-term current use of insulin (HCC) [E11.40, Z79.4] Order(s):insulin lispro (HUMALOG KWIKPEN) 100 unit/mLINJECT 18 UNITS SUBCUTANEOUSLY THREE TIMES A DAY BEFORE MEALSDisp: 15 mLRfl: 10 Prescriptions as of 11/29/2023 - insulin lispro (HUMALOG KWIKPEN) 100 unit/mL INJECT 18 UNITS SUBCUTANEOUSLY THREE TIMES A DAY BEFORE MEALS - pantoprazole DR (PROTONIX) 40 mg tablet Take 1 tablet by mouth every 12 hours. - glyBURIDE 5 mg tablet Take 2 tablets by mouth daily with breakfast. - insulin glargine U-300 conc (TOUJEO MAX U-300 SOLOSTAR) 300 unit/mL (3 mL) inpn Inject 90 Units subcutaneously every morning. - liraglutide (VICTOZA) 0.6 mg/ 0.1 ml subcutaneous pen injector Inject 1.8 mg subcutaneously once daily. - insulin needles, DISPOSABLE, (PEN NEEDLE) 31 gauge x 5/16 Use 5 needles per dose. 5 per day for her insulin. - DULoxetine (CYMBALTA) 60 mg capsule Take 1 capsule by mouth two times a day. - magnesium oxide (MAG-OX) 400 mg (241.3 mg magnesium) tablet Take 1 tablet by mouth two times a day. - Pramipexole 0.75 mg tablet Take 1 tablet by mouth daily at bedtime. - ergocalciferol 50,000 unit capsule (VITAMIN D2, DRISDOL) Take 1 capsule by mouth one time a week. - gabapentin (NEURONTIN) 300 mg capsule Take 1 capsule by mouth daily at bedtime for 270 days. - flash glucose sensor (FREESTYLE LANCE 2 SENSOR) kit Use to check blood sugar before meals and at bedtime - Docusate Sodium (STOOL SOFTENER) 100 mg tab Take 1 capsule by mouth twice daily as needed - acetylcyst/kbsyilL32/levomefol (METAFOLBIC PLUS ORAL) Take by mouth. - furosemide (LASIX) 40 mg tablet Take 1 tablet by mouth once daily. - cetirizine (ZYRTEC) 10 mg tablet Take 1 tablet by mouth once daily as needed (for itching, sneezing or runny nose). - losartan (COZAAR) 25 mg tablet (Discontinued) Take 1 tablet by mouth once daily. - blood sugar diagnostic ([place] ULTRA TEST) test strip USE TO TEST BLOOD SUGAR THREE TIMES A DAY - aspirin, enteric coated (ECOTRIN LOW STRENGTH) 81 mg EC tablet Take 1 tablet by mouth once daily. - atorvastatin (LIPITOR) 10 mg tablet Take (more content not included)...[facility]05-15-2024 Telephone encounter Note* Telephone Encounter - Eileen Be - 11/27/2023 3:02 PM EDT Please review and complete. Will be placed in your in box.Thank you Specialty called [phone] Graf to sign form. [facility]05-15-2024 Miscellaneous Notes* Telephone Encounter - Eileen Be - 11/27/2023 3:02 PM EDT Please review and complete. Will be placed in your in box.Thank you Specialty called [phone] Graf to sign form. documented in this encounterAdena [facility] Center05-03-2024 Telephone encounter Note * Telephone Encounter - Veronica Chi RN - 11/15/2023 10:26 AM EDT [facility] contacted patient regarding referral for screening colonoscopy. Patient states that she has had her previous scopes done at [facility], and is going to speak with her physician about going closer to home. Patient declined to schedule with us at this time. [facility]05-03-2024 Miscellaneous Notes* Telephone Encounter - Veronica Chi RN - 11/15/2023 10:26 AM EDT [facility] contacted patient regarding referral for screening colonoscopy. Patient states that she has had her previous scopes done at [facility], and is going to speak with her physician about going closer to home. Patient declined to schedule with us at this time. documented in this encounterAdena [facility]ayette [facility] Center05-02-2024 NoteHNO ID: [id number] Author: JAMIE GRAF DO Service: ? Author Type: Physician Type: Progress Notes Filed: 11/14/2023 14:44 Note Text: PharmD AND Physician Collaboration Note PharmD working in collaboration with provider staff for patient care I have reviewed the care plan and agree I confirm the diagnosis of: Type 2 diabetes mellitus with diabetic neuropathy, with long-term current use of insulin (hcc) Uses self-applied continuous glucose monitoring device (primary encounter diagnosis) Preventative health care Diabetes education, encounter for See Pharmacist's note for furthur details. Jamie Graf [facility]05-02-2024 History of Present illness Narrative* Jamie Graf DO - 11/14/2023 2:44 PM EDT PharmD & Physician Collaboration Note PharmD working in collaboration with provider staff for patient care I have reviewed the care plan and agree I confirm the diagnosis of: Type 2 diabetes mellitus with diabetic neuropathy, with long-term current use of insulin (hcc) Uses self-applied continuous glucose monitoring device (primary encounter diagnosis) Preventative health care Diabetes education, encounter for See Pharmacist's note for furthur details. Jamie Graf DO * Sonia Cr, [facility] - 11/14/2023 1:37 PM EDT REASON FOR CONSULT: diabetes Referring Provider: Dr. Thornton Date of Consult: 08/30/2023 Date of last appt with provider: 08/30/2023 Michelle Jules is a 58 year old female who is presenting for follow up visit in person. Patient consents to pharmacy collaborative practice agreement. HPI: Using CGM Since changing sensor to stomach from arm, no issues with falling off Findings below No episodes <70; states can feel when sugar starts to drop CGM findings: Average glucose, 14 days 12 am - 6 am: 215 (prior: 196) 6 am - 12 pm: 276 (prior: 197) 12 pm - 6 pm: 372 (prior: 363) 6 pm - 12 am: 327 (prior: 312) Time in range, 14 days: 13% (prior: 18%) High: 87% (prior: 82%) Low: 0% Number of hypoglycemic events in last 30 days: 0 Sensor usage: 82% Reports ongoing stress with mom, children Regimen as below Has missed ~1 doses of toujeo and humalog (breakfast dose) this past week States tried putting an alarm on the phone did not help Has not missed any humalog lunch doses (prior 2-3 missed doses per week) Victoza also in the morning, also likely missing ~1 dose Denies N/V/D/C Current Diabetes Medications Toujeo - 90 units daily Humalog 11 units TID Victoza - 1.8 mg daily Glyburide - 5 mg BID On BLAIRE/ARB: No, ACR <30 On Statin: Yes On aspirin: Yes Prior intolerance to metformin Denies food insecurity Ex- and his mother do shopping She does the cooking BEDS7: negative Glass of pop x1 per day; no change since last appt Tea is my weakness - not sweetened Down from 2 to 1 cup of tea per day Meals - inconsistent Breakfast - usually skips; trying to have something like toast Lunch - snacking, cheese; sandwich Dinner - variable 24 hour recall: peanut butter toast; snacking on banana; dinner - ham and beans and corn bread (1 plate) Limited activity Barriers: weather, caring for family members Previously spoke with dietitian Not interested at this time Past medical, family and social history reviewed and updated. REVIEW OF SYSTEMS Review of Systems Constitutional: Negative for chills and fever. VITALS: BP 119/71 Pulse 84 Temp 36.3 C (97.3 F) Ht 5' 9 (1.753 m) Wt 239 lb (108.4 kg) BMI 35.29 kg/m EXAM: Last 3 Encounter BP Readings: Date: BP: 09/12/2023 115/70 08/30/2023 118/77 05/20/2023 127/76 Wt: 235 lb 12.8 oz (107 kg) BMI: 34.82 kg/(m^2) LABS: Reviewed Lab Results Component Value Date HBA1C 13.7 08/30/2023 HBA1C 12.5 05/20/2023 HBA1C 14.7 01/22/2023 HBA1C 6.8 02/23/2019 HBA1C 7.9 11/12/2018 HBA1C 9.4 07/21/2018 Lab Results Component Value Date CHOL 177 01/25/2023 CHOL 147 07/21/2018 LDL 99 01/25/2023 LDL 63 07/21/2018 HDL 38 01/25/2023 HDL 38 07/21/2018 TG 201 01/25/2023 TG 230 07/21/2018 Albumin/Creat Ratio (mg/g) Date Value 01/25/2023 7 ASSESSMENT/PLAN 1. Type 2 diabetes mellitus with diabetic neuropathy, with long-term current use of insulin ([facility]) -ICD9: 250.60, 357.2, V58.67, ICD10: E11.40, Z79.4 (primary diagnosis) - Uncontrolled; elevated SMBG consistent with A1c - INCREASE INSULIN LISPRO (U-100) 100 UNIT/ML SUBCUTANEOUS PEN - /0 - encouraged medication adherence - CONTINUE INSULIN GLARGINE (U-300) CONC. 300 UNIT/ML (3 ML) SUBCUTANEOUS PEN - CONTINUE LIRAGLUTIDE 0.6 MG/0.1 ML (18 MG/3 ML) SUBCUTANEOUS PEN INJECTOR - minimize carb-based meal portions - Blood glucose monitoring via CGM - Discussed diabetic education issues of diabetes complications and monitoring required and hypoglycemic/hyperglycemic symptoms - minimize pop/tea; substitutions provided 2. Uses self-applied continuous glucose monitoring device - ICD9: V49.89, ICD10: Z97.8 Encouraged ongoing use; demonstrated how to use via teach back 3. Preventative health care - ICD9: V70.0, ICD10: Z00.00 - Counseled on healthy diet and regular exercise - schedule mammogram, colonoscopy 4. Diabetes education, encounter for - ICD9: V65.49, ICD10: Z71.89 Not interested in dietitian appt Patient verbalized understanding of instructions. Thank you for allowing pharmacy to participate in this patient's care Sonia Cr Rph The majority of the pharmacy visit (> 50%) was spent counseling and/or coordinating care for thepatient. I spent a total of 25 minutes on the date of the service which included preparing to see the patient, [id number] patient care, completing clinical documentation, and counseling and educating the patient/family/caregiver. documented in this encounterAden[facility]05-02-[facility]24 Instructions* Patient Instructions* Sonia Cr RPh - 11/14/2023 1:47 PM EDT Thank you for letting us care for you today! Below is a brief summary of our appointment. You were seen for: diabetes Medication changes: - keep victoza 1.8 mg, toujeo at 90 units daily - INCREASE humalog 15 units with each meal What you can do at home: - drinks that have zero sugar: water flavoring, [employer] carbonated matthews, powerade zero or gatorade zero, propel - continue to limit tea - goal: no missed doses! - try put a reminder on the fridge Other recommendations: - Please call central scheduling at [phone] to schedule mammogram and colonoscopy documented in this encounterAdena [facility]05-02-2024 NoteHNO ID: [id number] Author: SONIA CR RPh Service: ? Author Type: Pharmacist Type: Progress Notes Filed: 11/14/2023 14:14 Note Text: REASON FOR CONSULT: diabetes Referring Provider: Dr. Thornton Date of Consult: 08/30/2023 Date of last appt with FM provider: 08/30/2023 Michelle Jules is a 58 year old female who is presenting for follow up visit in person. Patient consents to pharmacy collaborative practice agreement. HPI: Using CGM Since changing sensor to stomach from arm, no issues with falling off Findings below No episodes <70; states can feel when sugar starts to drop CGM findings: Average glucose, 14 days 12 am - 6 am: 215 (prior: 196) 6 am - 12 pm: 276 (prior: 197) 12 pm - 6 pm: 372 (prior: 363) 6 pm - 12 am: 327 (prior: 312) Time in range, 14 days: 13% (prior: 18%) High: 87% (prior: 82%) Low: 0% Number of hypoglycemic events in last 30 days: 0 Sensor usage: 82% Reports ongoing stress with mom, children Regimen as below Has missed ~1 doses of toujeo and humalog (breakfast dose) this past week States tried putting an alarm on the phone did not help Has not missed any humalog lunch doses (prior 2-3 missed doses per week) Victoza also in the morning, also likely missing ~1 dose Denies N/V/D/C Current Diabetes Medications Toujeo - 90 units daily Humalog 11 units TID Victoza - 1.8 mg daily Glyburide - 5 mg BID On BLAIRE/ARB: No, ACR <30 On Statin: Yes On aspirin: Yes Prior intolerance to metformin Denies food insecurity Ex- and his mother do shopping She does the cooking BEDS7: negative Glass of pop x1 per day; no change since last appt Tea is my weakness - not sweetened Down from 2 to 1 cup of tea per day Meals - inconsistent Breakfast - usually skips; trying to have something like toast Lunch - snacking, cheese; sandwich Dinner - variable 24 hour recall: peanut butter toast; snacking on banana; dinner - ham and beans and corn bread (1 plate) Limited activity Barriers: weather, caring for family members Previously spoke with dietitian Not interested at this time Past medical, family and social history reviewed and updated. REVIEW OF SYSTEMS Review of Systems Constitutional: Negative for chills and fever. VITALS: BP 119/71 Pulse 84 Temp 36.3 ?C (97.3 ?F) Ht 5' 9 (1.753 m) Wt 239 lb (108.4 kg) BMI 35.29 kg/m? EXAM: Last 3 Encounter BP Readings: Date: BP: 09/12/2023 115/70 08/30/2023 118/77 05/20/2023 127/76 Wt: 235 lb 12.8 oz (107 kg) BMI: 34.82 kg/(m2) LABS: Reviewed Lab Results Component Value Date HBA1C 13.7 08/30/2023 HBA1C 12.5 05/20/2023 HBA1C 14.7 01/22/2023 HBA1C 6.8 02/23/2019 HBA1C 7.9 11/12/2018 HBA1C 9.4 07/21/2018 Lab Results Component Value Date CHOL 177 01/25/2023 CHOL 147 07/21/2018 LDL 99 01/25/2023 LDL 63 07/21/2018 HDL 38 01/25/2023 HDL 38 07/21/2018 TG 201 01/25/2023 TG 230 07/21/2018 Albumin/Creat Ratio (mg/g) Date Value 01/25/2023 7 ASSESSMENT/PLAN 1. Type 2 diabetes mellitus with diabetic neuropathy, with long-term current use of insulin ([facility]) - ICD9: 250.60, 357.2, V58.67, ICD10: E11.40, Z79.4 (primary diagnosis) - Uncontrolled; elevated SMBG consistent with A1c - INCREASE INSULIN LISPRO (U-100) 100 UNIT/ML SUBCUTANEOUS PEN - 15/15/15/0 - encouraged medication adherence - CONTINUE INSULIN GLARGINE (U-300) CONC. 300 UNIT/ML (3 ML) SUBCUTANEOUS PEN - CONTINUE LIRAGLUTIDE 0.6 MG/0.1 ML (18 MG/3 ML) SUBCUTANEOUS PEN INJECTOR - minimize carb-based meal portions - Blood glucose monitoring via CGM - Discussed diabetic education issues of diabetes complications and monitoring required and hypoglycemic/hyperglycemic symptoms - minimize pop/tea; substitutions provided 2. Uses self-applied continuous glucose monitoring device - ICD9: V49.89, ICD10: Z97.8 Encouraged ongoing use; demonstrated how to use via teach back 3. Preventative health care - ICD9: V70.0, ICD10: Z00.00 - Counseled on healthy diet and regular exercise - schedule mammogram, colonoscopy 4. Diabetes education, encounter for - ICD9: V65.49, ICD10: Z71.89 Not interested in dietitian appt Patient verbalized understanding of instructions. Thank you for allowing pharmacy to participate in this patient's care Sonia Cr Rph The majority of the pharmacy visit (> 50%) was spent counseling and/or coordinating care for the patient. I spent a total of 25 minutes on the date of the service which included preparing to see the patient, [id number] patient care, completing clinical documentation, and counseling and educating the patient/family/caregiver.[facility]04-26-2024 NoteHNO ID: [id number] Author: SONIA CR RPh Service: ? Author Type: Pharmacist Type: Progress Notes Filed: 11/08/2023 14:34 Note Text: Noted; no changes at this time given gaps in information. Sonia Cr RPh Hemoglobin A1C (POCT) Date Value Ref Range Status 08/30/2023 13.7 (A) 4.3 - 5.6 % Final Comment: Location:[facility] [place] [facility], [address] [place] [address], [facility] Point of care (POC) Hemoglobin A1c (HGBA1C) testing is intended to assess glucose control and provide a management tool for patients known to have diabetes and their healthcare providers. Target HGBA1C levels may depend on specific clinical circumstances. POC HGBA1C is not intended for use as a diagnostic or screening test; laboratory-based testing should be used for diagnostic purposes. The following information is supplemental and may not be applicable to specific diabetes management situations: The POC device sas bi developer provides a normal range of 4.2% to 6.5% for the HGBA1C POC test. However, the [place] [employer] guidelines indicate that patients with HGBA1C in the range of 5.7% to 6.4% are at increased risk for development of diabetes and that intervention by lifestyle modification may be beneficial. A HGBA1C level greater than or equal to 6.5% is considered diagnostic of diabetes, pending confirmatory testing. Use of HGBA1C testing to evaluate glucose control may not be appropriate for patients with hemoglobin variants or other conditions (e.g. anemia) that alter red blood cell lifespan.[facility]04-26-2024 History of Present illness Narrative* Sonia Cr RPh - 11/08/2023 2:33 PM EDT Noted; no changes at this time given gaps in information. Sonia Cr RPh Hemoglobin A1C (POCT) Date Value Ref Range Status 08/30/2023 13.7 (A) 4.3 - 5.6 % Final Comment: Location:[facility], [address] [place] [address], [facility] Point of care (POC) Hemoglobin A1c (HGBA1C) testing is intended to assess glucose control and provide a management tool for patients known to have diabetes and their healthcare providers. Target HGBA1C levels may depend on specific clinical circumstances. POC HGBA1C is not intended for use as a diagnostic or screening test; laboratory-based testing should be used for diagnostic purposes. The following information is supplemental and may not be applicable to specific diabetes management situations: The POC device sas bi developer provides a normal range of 4.2% to 6.5% for the HGBA1C POC test. However, the [place] [employer] guidelines indicate that patients with HGBA1C in the range of 5.7% to 6.4% are at increased risk for development of diabetes and that intervention by lifestyle modification may be beneficial. A HGBA1C level greater than or equal to 6.5% is considered diagnostic of diabetes, pending confirmatory testing. Use of HGBA1C testing to evaluate glucose control may not be appropriate for patients with hemoglobin variants or other conditions (e.g. anemia) that alter red blood cell lifespan. * Jeanie Murphy RN - 11/08/2023 1:22 PM EDT AG PRIMARY CARE COORDINATION FOLLOW-UP NOTE Provider Action/FYI: Patient identified by name and date of : YES Spoke to: patient Summary: PCC contacted patient for PCC follow up. PCC reminded patient she has a follow up appointment 11/14/2023. PCC asked patient what CGM said her 7 day glucose average was. Patient said it was 243. PCC asked time in range, High, and Low percentages and patient was unable to find this data. PCC reccommended patient asked Pharm D at appointment to assist in finding this information so patient can provide information at next PCC outreach. Patient agreeable to ask and learn this. Patient has no questions or concerns at this time. PCC instructed patient to call [phone] with any questions or concerns. Health leads screening tool questions performed? No N/A Concerns: Goals: Active Goals - Current status as of 11/08/2023 at 1:24 PM Most Recent Blood Pressure < 130/80 130/83 (10/30/2023) Confirm medication adherence of all prescribed medications and uses them correctly Hemoglobin A1C < 7 6.8 (02/23/2019) LDL at or below 100 mg/dL or on a high statin Health Maintenance Topics with due status: Overdue Topic Date Due BP Controlled (<130/80) Never done Hepatitis B Vaccine Never done Mammogram Screening 12/03/2018 Colorectal Cancer Screening 09/27/2021 Behavioral Health Screening Never done Pbx Installer plan for next outreach: Will follow-up 3 weeks Signature: Jeanie Murphy RN November 08, 2023 documented in this encounterAdena [facility]04-26-2024 NoteHNO ID: [id number] Author: JEANIE MURPHY RN Service: ? Author Type: Registered Nurse Type: Progress Notes Filed: 11/08/2023 13:28 Note Text: AG PRIMARY CARE COORDINATION FOLLOW-UP NOTE Provider Action/FYI: Patient identified by name and date of : YES Spoke to: patient Summary: PCC contacted patient for PCC follow up. PCC reminded patient she has a follow up appointment 11/14/2023. PCC asked patient what CGM said her 7 day glucose average was. Patient said it was 243. PCC asked time in range, High, and Low percentages and patient was unable to find this data. PCC reccommended patient asked Pharm D at appointment to assist in finding this information so patient can provide information at next PCC outreach. Patient agreeable to ask and learn this. Patient has no questions or concerns at this time. PCC instructed patient to call [phone] with any questions or concerns. Health leads screening tool questions performed? No N/A Concerns: Goals: Active Goals - Current status as of 11/08/2023 at 1:24 PM Most Recent Blood Pressure < 130/80 130/83 (10/30/2023) Confirm medication adherence of all prescribed medications and uses them correctly Hemoglobin A1C < 7 6.8 (02/23/2019) LDL at or below 100 mg/dL or on a high statin Health Maintenance Topics with due status: Overdue Topic Date Due BP Controlled (<130/80) Never done Hepatitis B Vaccine Never done Mammogram Screening 12/03/2018 Colorectal Cancer Screening 09/27/2021 Behavioral Health Screening Never done Pbx Installer plan for next outreach: Will follow-up 3 weeks Signature: Jeanie Murphy RN November 07[facility]04-26-2024 NotePatient Outreach (AGACM) MICHELLE JULES ([id number]) 1965 F Date Time Provider Department 11/08/23 JEANIE MURPHY [facility] During your visit today, we recorded the following information about you: Jeanie Murphy RN 11/08/2023 1:28 PM Signed PRIMARY CARE COORDINATION FOLLOW-UP NOTE Provider Action/FYI: Patient identified by name and date of : YES Spoke to: patient Summary: PCC contacted patient for PCC follow up. PCC reminded patient she has a follow up appointment 11/14/2023. PCC asked patient what CGM said her 7 day glucose average was. Patient said it was 243. PCC asked time in range, High, and Low percentages and patient was unable to find this data. PCC reccommended patient asked Pharm D at appointment to assist in finding this information so patient can provide information at next PCC outreach. Patient agreeable to ask and learn this. Patient has no questions or concerns at this time. [facility] instructed patient to call [phone] with any questions or concerns. Health leads screening tool questions performed? No N/A Concerns: Goals: Active Goals - Current status as of 11/08/2023 at 1:24 PM Most Recent Blood Pressure < 130/80 130/83 (10/30/2023) Confirm medication adherence of all prescribed medications and uses them correctly Hemoglobin A1C < 7 6.8 (02/23/2019) LDL at or below 100 mg/dL or on a high statin Health Maintenance Topics with due status: Overdue Topic Date Due BP Controlled (<130/80) Never done Hepatitis B Vaccine Never done Mammogram Screening 12/03/2018 Colorectal Cancer Screening 09/27/2021 Behavioral Health Screening Never done Pbx Installer plan for next outreach: Will follow-up 3 weeks Signature: Jeanie Murphy RN November 08, 2023 Sonia Cr RPh 11/08/2023 2:34 PM Signed Noted; no changes at this time given gaps in information. Sonia Cr RPh Hemoglobin A1C (POCT) Date Value Ref Range Status 08/30/2023 13.7 (A) 4.3 - 5.6 % Final Comment: Location:[facility] [place] [facility], [address] [place] [address], [facility] Point of care (POC) Hemoglobin A1c (HGBA1C) testing is intended to assess glucose control and provide a management tool for patients known to have diabetes and their healthcare providers. Target HGBA1C levels may depend on specific clinical circumstances. POC HGBA1C is not intended for use as a diagnostic or screening test; laboratory-based testing should be used for diagnostic purposes. The following information is supplemental and may not be applicable to specific diabetes management situations: The POC device sas bi developer provides a normal range of 4.2% to 6.5% for the HGBA1C POC test. However, the [place] [employer] guidelines indicate that patients with HGBA1C in the range of 5.7% to 6.4% are at increased risk for development of diabetes and that intervention by lifestyle modification may be beneficial. A HGBA1C level greater than or equal to 6.5% is considered diagnostic of diabetes, pending confirmatory testing. Use of HGBA1C testing to evaluate glucose control may not be appropriate for patients with hemoglobin variants or other conditions (e.g. anemia) that alter red blood cell lifespan. 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 - liraglutide (VICTOZA) 0.6 mg/ 0.1 ml subcutaneous pen injector Inject 1.8 mg subcutaneously once daily. - pantoprazole DR (PROTONIX) 40 mg tablet Take 1 tablet by mouth every 12 hours. - insulin needles, DISPOSABLE, (PEN NEEDLE) 31 gauge x 5/16 Use 5 needles per dose. 5 per day for her insulin. - glyBURIDE 5 mg tablet Take 2 tablets by mouth daily with breakfast. - DULoxetine (CYMBALTA) 60 mg capsule Take 1 capsule by mouth two times a day. - magnesium oxide (MAG-OX) 400 mg (241.3 mg magnesium) tablet Take 1 tablet by mouth two times a day. - Pramipexole 0.75 mg tablet Take 1 tablet by mouth daily at bedtime. - ergocalciferol 50,000 unit capsule (VITAMIN D2, DRISDOL) Take 1 capsule by mouth one time a week. - gabapentin (NEURONTIN) 300 mg capsule Take 1 capsule by mouth daily at bedtime for 270 days. - flash glucose sensor (FREESTY (more content not included)...[facility]04-23-2024 Telephone encounter Note* Telephone Encounter - Eileen Be - 11/05/2023 2:14 PM EDT Please review and complete. Will be placed in your temp file.Thank you [facility]04-23-2024 Miscellaneous Notes* Telephone Encounter - Eileen Be - 11/05/2023 2:14 PM EDT Please review and complete. Will be placed in your temp file.Thank you documented in this encounterAdena [facility] Center04-18-2024 Miscellaneous Notes* Telephone Encounter - Lisseth Cristiane - 10/31/2023 8:23 AM EDT Referral to GASTROENTEROLOGY entered into the [facility] portal on 10/31/2023. Confirmation number [id number]. documented in this encounterAdena [facility]ayette [facility] Center04-17-2024 NoteHNO ID: [id number] Author: JAMIE GRAF DO Service: ? Author Type: Physician Type: Progress Notes Filed: 10/30/2023 16:45 Note Text: PharmD AND Physician Collaboration Note PharmD working in collaboration with provider staff for patient care I have reviewed the care plan and agree I confirm the diagnosis of: Type 2 diabetes mellitus with diabetic neuropathy, with long-term current use of insulin (hcc) (primary encounter diagnosis) Uses self-applied continuous glucose monitoring device Preventative health care Diabetes education, encounter for Screening for colon cancer See Pharmacist's note for furthur details. Jamie Graf [facility]04-17-2024 History of Present illness Narrative* Jamie Graf DO - 10/30/2023 4:45 PM EDT PharmD & Physician Collaboration Note PharmD working in collaboration with provider staff for patient care I have reviewed the care plan and agree I confirm the diagnosis of: Type 2 diabetes mellitus with diabetic neuropathy, with long-term current use of insulin (hcc) (primary encounter diagnosis) Uses self-applied continuous glucose monitoring device Preventative health care Diabetes education, encounter for Screening for colon cancer See Pharmacist's note for furthur details. Jamie Graf DO * Sonia Cr, [facility] - 10/30/2023 2:18 PM EDT REASON FOR CONSULT: diabetes Referring Provider: Dr. Thornton Date of Consult: 08/30/2023 Michelle Jules is a 58 year old female who is presenting for follow up visit in person. Patient consents to pharmacy collaborative practice agreement. HPI: Placed CGM, has been wearing ~1 month No issues with use CGM findings: Average glucose, 14 days 12 am - 6 am: 196 6 am - 12 pm: 197 12 pm - 6 pm: 363 6 pm - 12 am: 312 Time in range, 14 days: 18% High: 82% Low: 0% Number of hypoglycemic events in last 30 days: 0 Sensor usage: 64% Reports ongoing stress with mom being in the hospital, son had an injury Regimen as below Confirmed changed lantus to toujeo; likes change States frequently misses humalog lunch dose; ongoing missed doses At least 2-3 missed doses per week Reports does not miss lantus or pills Historically had been out of victoza for 1 month Reports was able to get; no issues Has been back on for ~1 month Denies N/V/D/C Current Diabetes Medications Toujeo - 90 units daily Humalog 8 units TID Victoza - 1.8 mg; see above Glyburide - 5 mg BID On BLAIRE/ARB: No, ACR <30 On Statin: Yes On aspirin: Yes Prior intolerance to metformin Payor: [facility] MEDICAID / Plan: [place] [employer]BS MEDICAID OF [place] / Product Type: Medicaid / 24 hour recall: Breakfast - cereal Lunch - pasta Dinner - doesn't remember Ex- and his mother do shopping She does the cooking BEDS7: negative Glass of pop x1 per day; no change since last appt Tea is my weakness - not sweetened States now only doing 2 cups per day Meals - inconsistent Breakfast - usually skips; trying to have something like toast Lunch - snacking, cheese; sandwich Dinner - variable Limited activity Barriers: weather, caring for family members Previously spoke with dietitian Not interested at this time Past medical, family and social history reviewed and updated. REVIEW OF SYSTEMS Review of Systems Constitutional: Negative for chills and fever. PAST MEDICAL HISTORY Diagnosis Date Cardiomyopathy, nonischemic (HCC) 04/2013 Degenerative joint disease involving multiple joints shoulders, right knee Essential hypertension, benign Family history of colon cancer 5y screening cycle GERD (gastroesophageal reflux disease) Restless leg syndrome 02/09/2016 Snoring Vitamin D deficiency ALLERGIES Allergen Reactions Adhesive Tape (Natty* Itching Latex, Natural Rubb* Rash Metformin Other: See Comments Caused arrhythmia issues Seasonal Allergies Itching Simvastatin Other: See Comments myalgia VITALS: BP 130/83 Temp 36.3 C (97.4 F) Ht 5' 9 (1.753 m) Wt 237 lb (107.5 kg) BMI 35.00 kg/m EXAM: Last 3 Encounter BP Readings: Date: BP: 09/12/2023 115/70 08/30/2023 118/77 05/20/2023 127/76 Wt: 235 lb 12.8 oz (107 kg) BMI: 34.82 kg/(m^2) LABS: Reviewed Lab Results Component Value Date HBA1C 13.7 08/30/2023 HBA1C 12.5 05/20/2023 HBA1C 14.7 01/22/2023 HBA1C 6.8 02/23/2019 HBA1C 7.9 11/12/2018 HBA1C 9.4 07/21/2018 CMP: Glucose 304 01/25/2023 BUN 13 01/25/2023 Creatinine 0.64 01/25/2023 Sodium 137 01/25/2023 Potassium 4.2 01/25/2023 Albumin 4.0 01/25/2023 Calcium 9.4 01/25/2023 AST 16 01/25/2023 ALT 23 01/25/2023 Lab Results Component Value Date CHOL 177 01/25/2023 CHOL 147 07/21/2018 LDL 99 01/25/2023 LDL 63 07/21/2018 HDL 38 01/25/2023 HDL 38 07/21/2018 TG 201 01/25/2023 TG 230 07/21/2018 Albumin/Creat Ratio (mg/g) Date Value 01/25/2023 7 Creatinine clearance cannot be calculated (Patient's most recent lab result is older than the maximum 180 days allowed.) ASSESSMENT/PLAN 1. Type 2 diabetes mellitus with diabetic neuropathy, with long-term current use of insulin (HCC) -ICD9: 250.60, 357.2, V58.67, ICD10: E11.40, Z79.4 (primary diagnosis) - Uncontrolled; good lifestyle changes at this time. Tolerating change to toujeo. - INCREASE INSULIN LISPRO (U-100) 100 UNIT/ML SUBCUTANEOUS PEN - 05/25/11 - encouraged medication adherence - CONTINUE INSULIN GLARGINE (U-300) CONC. 300 UNIT/ML (3 ML) SUBCUTANEOUS PEN - CONTINUE LIRAGLUTIDE 0.6 MG/0.1 ML (18 MG/3 ML) SUBCUTANEOUS PEN INJECTOR - minimize carb-based meal portions - Blood glucose monitoring via CGM - Discussed diabetic education issues of diabetes complications and monitoring required and hypoglycemic/hyperglycemic symptoms - minimize pop/tea 2. Uses self-applied continuous glucose monitoring device - ICD9: V49.89, ICD10: Z97.8 Encouraged ongoing use 3. Preventative health care - ICD9: V70.0, ICD10: Z00.00 - Counseled on healthy diet and regular exercise - schedule mammogram - patient agreeable to colonoscopy; messaged resident PCP 4. Diabetes education, encounter for - ICD9: V65.49, ICD10: Z71.89 As above Patient verbalized understanding of instructions. Thank you for allowing pharmacy to participate in this patient's care Sonia Cr RPh The majority of the pharmacy visit (> 50%) was spent counseling and/or coordinating care for thepatient. Dlqc-sc-kriv time was 20 minutes. documented in this encounterAden[facility]04-17-[facility]24 Miscellaneous Notes* Addendum Note - Williams Rubin MD - 10/30/2023 4:10 PM EDTAddended by: WILLIAMS RUBIN on: 10/30/2023 04:10 PM Modules accepted: Orders documented in this encounterAdena [facility]04-17-2024 Instructions* Patient Instructions* Sonia Cr RPh - 10/30/2023 2:24 PM EDT Thank you for letting us care for you today! Below is a brief summary of our appointment. You were seen for: diabetes Medication changes: - aim for no missed doses of insulin - CONTINUE toujeo - INCREASE humalog to 11 units with each meal - CONTINUE victoza What you can do at home: - ongoing minimize tea intake - Please call central scheduling at [phone] to schedule mammogram and colonoscopy Other recommendations: - continue using freestyle lance If your sensor reads errors or your sensor falls off, please call: . Freestyle lance will replace any sensor that malfunctions. Please keep this sensor to send back to the sas bi developer. Scan sensor at least every 8 hours. documented in this encounterAdena [facility]04-17-2024 NoteHNO ID: [id number] Author: SONIA CR RPh Service: ? Author Type: Pharmacist Type: Progress Notes Filed: 10/30/2023 15:29 Note Text: REASON FOR CONSULT: diabetes Referring Provider: Dr. Thornton Date of Consult: 08/30/2023 Michelle Jules is a 58 year old female who is presenting for follow up visit in person. Patient consents to pharmacy collaborative practice agreement. HPI: Placed CGM, has been wearing ~1 month No issues with use CGM findings: Average glucose, 14 days 12 am - 6 am: 196 6 am - 12 pm: 197 12 pm - 6 pm: 363 6 pm - 12 am: 312 Time in range, 14 days: 18% High: 82% Low: 0% Number of hypoglycemic events in last 30 days: 0 Sensor usage: 64% Reports ongoing stress with mom being in the hospital, son had an injury Regimen as below Confirmed changed lantus to toujeo; likes change States frequently misses humalog lunch dose; ongoing missed doses At least 2-3 missed doses per week Reports does not miss lantus or pills Historically had been out of victoza for 1 month Reports was able to get; no issues Has been back on for ~1 month Denies N/V/D/C Current Diabetes Medications Toujeo - 90 units daily Humalog 8 units TID Victoza - 1.8 mg; see above Glyburide - 5 mg BID On BLAIRE/ARB: No, ACR <30 On Statin: Yes On aspirin: Yes Prior intolerance to metformin Payor: [employer]ICA[employer] / Plan: [place] [facility] MEDICAID [facility] / Product Type: Medicaid / 24 hour recall: Breakfast - cereal Lunch - pasta Dinner - doesn't remember Ex- and his mother do shopping She does the cooking BEDS7: negative Glass of pop x1 per day; no change since last appt Tea is my weakness - not sweetened States now only doing 2 cups per day Meals - inconsistent Breakfast - usually skips; trying to have something like toast Lunch - snacking, cheese; sandwich Dinner - variable Limited activity Barriers: weather, caring for family members Previously spoke with dietitian Not interested at this time Past medical, family and social history reviewed and updated. REVIEW OF SYSTEMS Review of Systems Constitutional: Negative for chills and fever. PAST MEDICAL HISTORY Diagnosis Date Cardiomyopathy, nonischemic (HCC) 04/2013 Degenerative joint disease involving multiple joints shoulders, right knee Essential hypertension, benign Family history of colon cancer 5y screening cycle GERD (gastroesophageal reflux disease) Restless leg syndrome 02/09/2016 Snoring Vitamin D deficiency ALLERGIES Allergen Reactions Adhesive Tape (Natty* Itching Latex, Natural Rubb* Rash Metformin Other: See Comments Caused arrhythmia issues Seasonal Allergies Itching Simvastatin Other: See Comments myalgia VITALS: BP 130/83 Temp 36.3 ?C (97.4 ?F) Ht 5' 9 (1.753 m) Wt 237 lb (107.5 kg) BMI 35.00 kg/m? EXAM: Last 3 Encounter BP Readings: Date: BP: 09/12/2023 115/70 08/30/2023 118/77 05/20/2023 127/76 Wt: 235 lb 12.8 oz (107 kg) BMI: 34.82 kg/(m2) LABS: Reviewed Lab Results Component Value Date HBA1C 13.7 08/30/2023 HBA1C 12.5 05/20/2023 HBA1C 14.7 01/22/2023 HBA1C 6.8 02/23/2019 HBA1C 7.9 11/12/2018 HBA1C 9.4 07/21/2018 CMP: Glucose 304 01/25/2023 BUN 13 01/25/2023 Creatinine 0.64 01/25/2023 Sodium 137 01/25/2023 Potassium 4.2 01/25/2023 Albumin 4.0 01/25/2023 Calcium 9.4 01/25/2023 AST 16 01/25/2023 ALT 23 01/25/2023 Lab Results Component Value Date CHOL 177 01/25/2023 CHOL 147 07/21/2018 LDL 99 01/25/2023 LDL 63 07/21/2018 HDL 38 01/25/2023 HDL 38 07/21/2018 TG 201 01/25/2023 TG 230 07/21/2018 Albumin/Creat Ratio (mg/g) Date Value 01/25/2023 7 Creatinine clearance cannot be calculated (Patient's most recent lab result is older than the maximum 180 days allowed.) ASSESSMENT/PLAN 1. Type 2 diabetes mellitus with diabetic neuropathy, with long-term current use of insulin (HCC) - ICD9: 250.60, 357.2, V58.67, ICD10: E11.40, Z79.4 (primary diagnosis) - Uncontrolled; good lifestyle changes at this time. Tolerating change to toujeo. - INCREASE INSULIN LISPRO (U-100) 100 UNIT/ML SUBCUTANEOUS PEN - 05/25/11 - encouraged medication adherence - CONTINUE INSULIN GLARGINE (U-300) CONC. 300 UNIT/ML (3 ML) SUBCUTANEOUS PEN - CONTINUE LIRAGLUTIDE 0.6 MG/0.1 ML (18 MG/3 ML) SUBCUTANEOUS PEN INJECTOR - minimize carb-based meal portions - Blood glucose monitoring via CGM - Discussed diabetic education issues of diabetes complications and monitoring required and hypoglycemic/hyperglycemic symptoms - minimize pop/tea 2. Uses self-applied continuous glucose monitoring device - ICD9: V49.89, ICD10: Z97.8 Encouraged ongoing use 3. Preventative health care - ICD9: V70.0, ICD10: Z00.00 - Counseled on healthy diet and regular exercise - schedule mammogram - patient agreeable to colonoscopy; messaged resident PCP 4. Diabetes education, encounter for - ICD9: V65.49, ICD10: Z71.89 As above Tere (more content not included)...[facility]04-09-2024 Miscellaneous Notes* Telephone Encounter - Maria A Purvis LPN - 10/22/2023 4:25 PM EDT Pharmacy called requesting the following refill Refill(s) Requested: Requested Prescriptions Pending Prescriptions Disp Refills pantoprazole DR (PROTONIX) 40 mg tablet 60 tablet 0 Sig: Take 1 tablet by mouth every 12 hours. ALLERGIES Allergen Reactions Adhesive Tape (Natty* Itching Latex, Natural Rubb* Rash Metformin Other: See Comments Caused arrhythmia issues Seasonal Allergies Itching Simvastatin Other: See Comments myalgia (home) [phone] (work) Last Office Visit Date: 09/12/2023 Last [facility] [facility] Visit: Visit date not found Future Appointment: 10/30/2023 The patients preferred pharmacy has been captured for this encounter? yes Request is for script(s) to be escript to pharmacy. Maria A Purvis LPN documented in this encounterAdena [facility]03-24-2024 Discharge summary Author Jose R Phillips [facility] October 06, 2023 3:51pm Note Date/Time October 06, 2023 1:5 5pm [facility] Medical Records Department [address] [place] [address] Emergency Department Summary 10/06/23 MR#: [id number] Acct: [id number] Name: MICHELLE JULES Rep #:[id number] : 1965 58 From: Jose R Phillips MD PCP: Care Physician,No Primary Status :REG ER Location: ED HPI History of Present Illness Chief Complaint: Lower Extremity Injury Informant: patient and EMS Narrative Narrative: Patient states she had a minor injury to her right great toe about a week ago, she states she caught the toenail on something as she was walking past it, the toenail was already thickened and enlarged, but this tore the toenail partially off. Today, she tore the toenail off completely as it was just hanging on, and in doing this, she created a wound accidentally that is sore. Then, her dog stepped on it, creating sprain hemorrhage from the wound which is why she calledEMS. She is on no antiplatelet or anticoagulant medications. She denies any symptoms of anemia, just sore at the toe. It is currently not bleeding now thatEMS wrapped it tightly. [facility] Medical History Arthritis Diabetes type 2, controlled Gout Headache Heart disease HTN (hypertension) Hyperlipidemia Nonischemic dilated cardiomyopathy Pulmonary HTN RLS (restless legs syndrome) Seasonal allergies Home Medications aspirin 81 mg tablet,delayed release 81 mg PO DAILY heart health 04/18/13 [History Last Taken 11/07/17 07:00] magnesium oxide 400 mg (241.3 mg magnesium) tablet 400 mg PO BID #30 tabs 06/01/13 [Rx Last Taken 11/07/17 07:00] atorvastatin 10 mg tablet (Lipitor) 10 mg PO DAILY cholesterol 08/12/17 [History Last Taken 11/07/17 07:00] carvedilol 12.5 mg tablet 25 mg PO BID BP 08/12/17 [History Last Taken 11/07/17 07:00] oxybutynin chloride 5 mg tablet 15 mg PO DAILY bladder 08/12/17 [History Last Taken 11/07/17 07:00] pantoprazole 40 mg tablet,delayed release 40 mg PO BID stomach acid 08/12/17 [History Last Taken 11/07/17 07:00] pramipexole 0.25 mg tablet (Mirapex) 0.75 mg PO QHS restless legs 08/12/17 [History Last Taken 11/06/17 21:00] spironolactone 25 mg tablet (Aldactone) 25 mg PO DAILY diuretic 08/12/17 [History Last Taken 11/07/17 07:00] sertraline 50 mg tablet 50 mg PO DAILY 03/04/18 [History Last Taken Unknown] OneTouch Delica Lancets 30 gauge (lancets) #300 ea 03/24/18 [Rx Last Taken Unknown] OneTouch Ultra Blue Test Strip (blood sugar diagnostic) #300 ea 03/24/18 [Rx Last Taken Unknown] insulin lispro 100 unit/mL subcutaneous solution (Admelog U-100 Insulin lispro) See Rx Instructions subcut TID e11.69 #3 mL 05/06/18 [Rx Last Taken Unknown] cetirizine 10 mg capsule 10 mg PO DAILY 05/16/18 [History Last Taken Unknown] insulin glargine 100 unit/mL (3 mL) subcutaneous pen 50 unit subcut 1700 glucosecontrol 05/16/18 [History Last Taken Unknown] empagliflozin 10 mg tablet (Jardiance) 10 mg PO DAILY 07/30/18 [History Last Taken Unknown] fexofenadine 180 mg tablet (Betina Allergy) 180 mg PO DAILY 07/30/18 [History Last Taken Unknown] FreeStyle Lance 14 Day [place] (flash glucose scanning reader) #1 ea 08/04/18 [Rx Last Taken Unknown] FreeStyle Lance 14 Day Sensor (flash glucose sensor) #1 ea 08/04/18 [Rx Last Taken Unknown] flash glucose scanning reader 08/04/18 [History Last Taken Unknown] flash glucose sensor 08/04/18 [History Last Taken Unknown] CareFine Pen Needle 30 gauge x 5/16 (pen needle, diabetic) #120 ea 08/18/18 [Rx Last Taken Unknown] insulin syringe-needle U-100 0.5 mL 31 gauge x 5/16 (BD Insulin Syringe Ultra- Fine) #90 ea 08/19/18 [Rx Last Taken Unknown] furosemide 40 mg tablet 40 mg PO BID 04/21/21 [History Last Taken Unknown] insulin glargine 100 unit/mL (3 mL) subcutaneous pen (Lantus Solostar U-100 Insulin) 60 unit subcut BREAKFAST 04/21/21 [History Last Taken Unknown] Allergy/AdvReac Type Severity Reaction Status Date / Time simvastatin Allergy Severe Unknown Verified 10/06/23 13:24 Latex, Natural Rubber Allergy Unknown Rash Verified 10/06/23 13:24 metformin Allergy Other Verified 10/06/23 13:24 Family History Father Heart disease Myocardial infarction CAD (coronary artery disease) Mother CAD (coronary artery disease) Heart disease Surgical History H/O colectomy History of hysteroscopy History of left heart catheterization Hx of appendectomy Social History Smoking Status: Never smoker second hand exposure: No alcohol intake: current alcohol intake frequency: a few times a month substance use type: does not use ROS ROS ED Constitutional Constitutional ED: Denies chills or fever(s) Musculoskeletal Musculoskeletal: Reports extremity pain; Denies neck pain Integumentary Reports wounds; Denies Abrasions or rash Neurologic Neurologic: Denies paresthesias or weakness EXAM Physical Exam Const Vital Signs: 10/06/23 13:22 Temperature 98.5 F Temperature Source Oral Pulse Rate 75 Respiratory Rate 18 Blood Pressure 145/100 H Blood Pressure Mean 115 Pulse Ox 95 Oxygen Delivery Method Room Air Positive well nourished, well developed and obese General Appearance ED: well developed and NAD Nutritional Appearance: obese Neck full ROM and supple Back/Spine normal ROM and normal to inspection Extremity Extremity Narrative: In unwrapping the bulky dressing on the patient's right foot, there is a wound which appears consistent with superficial and subcutaneous tissue avulsed at thetibial aspect of the nailbed and toe on the right great toe, this wound is tender, does not appear infected, and is not currently actively bleeding. Thereis a small piece of what appears to be a thickened nail, may have onychomycosis,that is residual at the peroneal aspect of the same toe. There is no bony tenderness in the toe, however palpating the bone away from the wound creates sudden arteriolar bleeding from said wound. I was able to control this by wrapping it tightly with Kerlix. Neuro oriented x3, no focal motor deficits and no sensory deficits noted Sensorium / Orientation: alert Psych mental status grossly normal and thought process normal Skin Skin Narrative: Wound to the tibial aspect of the dorsal distal right great toe see above. No signs of infection elephantitis no other areas of tenderness. Rashes: no rashes MDM MDM MDM Narrative Medical decision making narrative: After wrapping the wound as above, nursing unwrapped it, bleeding was controlled, placed a piece of Surgifoam on it followed by iodoform, and a wrap. There is no bleeding. The patient got up and put weight on it to go to the bathroom and it started hemorrhaging again. It was again wrapped tightly, whichcontrolled the bleeding. When I reevaluated the wound I unwrapped it, and the Surgifoam is left intact and there is no active bleeding. Therefore I rewrappedit and we observed the patient for a little while. There is no recurrent bleeding. She has a ride waiting and would like to leave. We are sending her home with a care package of supplies and the rest of the Surgifoam with instructions for use, in case her restarts. I am also sending her home with a postop shoe to minimize the chances of rebleeding and she is going to try to avoid putting any pressure on the toe for the rest of the day. She is comfortable with that plan, she is not symptomatic/orthostatic with standing so I do not think we need to check her blood counts. She has a clinical social work aide in [facility] she already has an appointment with. Discharge Plan Triage Chief Complaint: Lower Extremity Injury ED Provider: Jose R Phillips Dx/Rx/DC Orders Clinical Impression: Open wound of left great toe with damage to nail, Bleeding from wound Instructions: ED Post Op Wound Check, Bleeding Prescriptions: No Action carvedilol 12.5 MG tablet 25 mg PO BID Patient Comments: BP pramipexole [Mirapex] 0.25 mg tablet 0.75 mg PO QHS Patient Comments: restless legs spironolactone [Aldactone] 25 mg tablet 25 mg PO DAILY Patient Comments: diruetic atorvastatin [Lipitor] 10 mg tablet 10 mg PO DAILY Patient Comments: cholesterol pantoprazole 40 mg tablet,delayed release (DR/EC) 40 mg PO BID Patient Comments: stomach acid oxybutynin chloride 5 mg tablet 15 mg PO DAILY Patient Comments: bladder (DME) blood sugar diagnostic [OneTouch Ultra Blue Test Strip] strip See Dose Instructions .ROUTE .MEDSUPPLY Qty: 300 3RF Dose Instruction: As directed Rx Instructions: As directed with device up to 3 times daily (DME) lancets [OneTouch Delica Lancets] 30 gauge misc See Dose Instructions .ROUTE .MEDSUPPLY Qty: 300 3RF Dose Instruction: As directed Rx Instructions: As directedwith device up to 3 times daily Admelog U-100 Insulin lispro 100 unit/mL solution See Rx Instructions SC TID Qty: 3 11RF Dose Instruction: inject 1 unit for every 50 blood glucose points above 200 up to 10 units qd SC TID Rx Instructions: inject 1 unit for every 35 blood glucose points above 200 up to 15 units qd SC TID fexofenadine [Betina Allergy] 180 mg tablet 180 mg PO DAILY Jardiance 10 mg tablet 10 mg PO DAILY (DME) FreeStyle Lance 14 Day Sensor kit See Dose Instructions .ROUTE .MEDSUPPLY Qty: 1 11RF Dose Instruction: As directed Rx Instructions: As directed to monitor glucose levels change x14 days (DME) FreeStyle Lance 14 Day [place] misc See Dose Instructions .ROUTE .MEDSUPPLY Qty: 1 0RF Dose Instruction: As directed Rx Instructions: As directed to monitor glucose levels with sensors aspirin 81 MG tablet 81 mg PO DAILY Patient Comments: ANTIPLETELET magnesium oxide 400 MG tablet 400 mg PO BID Qty: 30 0RF Patient Comments: supplement sertraline 50 MG tablet 50 mg PO DAILY cetirizine 10 MG capsule 10 mg PO DAILY insulin glargine 100 UNIT/ML insulin pen 50 unit subcut 1700 Rx Instructions: Titrating dose up. (DME) flash glucose sensor 1 EACH kit 0 ( .Route .MEDSUPPLY Rx Instructions: apply to back of arm to moniter BG. change q 10 days (DME) flash glucose scanning reader 1 EACH misc 0 ( .Route .MEDSUPPLY Rx Instructions: use to moniter Bg via sensor Lantus Solostar U-100 Insulin 100 unit/mL (3 mL) insulin pen 60 unit SUBCUT BREAKFAST Patient Comments: INJECT 76 UNITS SUBCUTANEOUSLY DAILY. DO NOT USE IF GLUCOSE IS LESS THAN 150 furosemide 40 MG tablet 40 mg PO BID Patient Comments: DIURETIC/HEART/BLOOD PRESSURE (DME) CareFine Pen Needle 30 gauge x 5/16 needle See Dose Instructions .ROUTE .MEDSUPPLY Qty: 120 11RF Dose Instruction: As directed Rx Instructions: use with insulin pen 4 x qd (DME) insulin syringe-needle U-100 [BD Insulin Syringe Ultra-Fine] 0.5 mL 31 gauge x 5/16 syringe See Dose Instructions .ROUTE .MEDSUPPLY Qty: 90 11RF Dose Instruction: As directed Rx Instructions: use to inject insulin tid Primary Care Provider: Care Physician,No Primary Referrals: Town Doctor,Out of [Non-Staff] - Keep Sarah appointment (with your clinical social work aide; return to the ER if any issues before then with your wound) Activity Restrictions/Additional Instructions: For today, leave the dressing in place until tomorrow morning. Then change at least once daily, or more often if the dressing is bloody/dirty. Cleanse gentlyat least once daily, make sure you are looking at the wound every day to look for signs of infection. Whenever you placed a new dressing, place antibiotic ointment and you may reuse the yellow iodoform gauze against the skin followed by clean gauze and a wrap. Disposition Disposition: Home, Self Care What to do if you have Problems For any increased pain, shortness of breath, bleeding, nausea or vomiting, chestpain, or any unexpected problems, contact your Primary Care Provider. Call [facility] ([phone]) or report to the closest Emergency Room. Call 911 if necessary. 10/06/23 1551 <Electronically signed by Jose R Phillips MD> Cosigner Signature (if applicable): CC: No Primary Care Physician ~ Signed [facility] Work Phone: 1(855) 404-936503-08-2024 NoteHNO ID: [id number] Author: SONIA CR RPh Service: ? Author Type: Pharmacist Type: Progress Notes Filed: 09/20/2023 14:29 Note Text: Aware; nursing working on PA. Addition of GLP1 will add with hyperglycemia. Recent change to toujeo so will not make adjustments at this time. Sonia Cr [facility]03-08-2024 History of Present illness Narrative* Sonia Cr RPh - 09/20/2023 2:28 PM EST Aware; nursing working on PA. Addition of GLP1 will add with hyperglycemia. Recent change to toujeoso will not make adjustments at this time. Sonia Cr RPh * Jeanie Murphy RN - 09/20/2023 1:21 PM EST AG PRIMARY CARE COORDINATION FOLLOW-UP NOTE Provider Action/FYI: Patient identified by name and date of : YES Spoke to: patient Summary: PCC contacted patient for PCC follow up. Patient said she currently not home so can not go over exact blood sugars with PCC. Patient said she has been in 200 range. Patient said she just picked up toujeo. Patient waiting on prior auth for Victoza and freestyle Lance. PCC reviewed each diabetic medication and how to take. Patient repeated back. PCC instructed patient to call [phone] with any questions or concerns. Health leads screening tool questions performed? No N/A Concerns: Goals: Active Goals - Current status as of 09/20/2023 at 1:22 PM Most Recent Blood Pressure < 130/80 115/70 (09/12/2023) Confirm medication adherence of all prescribed medications and uses them correctly Hemoglobin A1C < 7 6.8 (02/23/2019) LDL at or below 100 mg/dL or on a high statin Health Maintenance Topics with due status: Overdue Topic Date Due Hepatitis B Vaccine Never done Mammogram Screening 12/03/2018 Colorectal Cancer Screening 09/27/2021 Pbx Installer plan for next outreach: Will follow-up 2 weeks Signature: Jeanie Murphy RN September 20, 2023 documented in this encounterAdena [facility]03-08-2024 NoteHNO ID: [id number] Author: JEANIE MURPHY RN Service: ? Author Type: Registered Nurse Type: Progress Notes Filed: 09/20/2023 13:28 Note Text: AG PRIMARY CARE COORDINATION FOLLOW-UP NOTE Provider Action/FYI: Patient identified by name and date of : YES Spoke to: patient Summary: PCC contacted patient for PCC follow up. Patient said she currently not home so can not go over exact blood sugars with PCC. Patient said she has been in 200 range. Patient said she just picked up toujeo. Patient waiting on prior auth for Victoza and freestyle Lance. PCC reviewed each diabetic medication and how to take. Patient repeated back. PCC instructed patient to call [phone] with any questions or concerns. Health leads screening tool questions performed? No N/A Concerns: Goals: Active Goals - Current status as of 09/20/2023 at 1:22 PM Most Recent Blood Pressure < 130/80 115/70 (09/12/2023) Confirm medication adherence of all prescribed medications and uses them correctly Hemoglobin A1C < 7 6.8 (02/23/2019) LDL at or below 100 mg/dL or on a high statin Health Maintenance Topics with due status: Overdue Topic Date Due Hepatitis B Vaccine Never done Mammogram Screening 12/03/2018 Colorectal Cancer Screening 09/27/2021 Pbx Installer plan for next outreach: Will follow-up 2 weeks Signature: Jeanie Murphy RN September 19[facility]03-08-[facility]24 NotePatient Outreach ([facility]) MICHELLE JULES ([id number]) 1965 F Date Time Provider Department 09/20/23 JEANIE MURPHY [facility] During your visit today, we recorded the following information about you: Jeanie Murphy RN 09/20/2023 1:28 PM Signed AG PRIMARY CARE COORDINATION FOLLOW-UP NOTE Provider Action/FYI: Patient identified by name and date of : YES Spoke to: patient Summary: PCC contacted patient for PCC follow up. Patient said she currently not home so can not go over exact blood sugars with PCC. Patient said she has been in 200 range. Patient said she just picked up toujeo. Patient waiting on prior auth for Victoza and freestyle Lance. PCC reviewed each diabetic medication and how to take. Patient repeated back. PCC instructed patient to call [phone] with any questions or concerns. Health leads screening tool questions performed? No N/A Concerns: Goals: Active Goals - Current status as of 09/20/2023 at 1:22 PM Most Recent Blood Pressure < 130/80 115/70 (09/12/2023) Confirm medication adherence of all prescribed medications and uses them correctly Hemoglobin A1C < 7 6.8 (02/23/2019) LDL at or below 100 mg/dL or on a high statin Health Maintenance Topics with due status: Overdue Topic Date Due Hepatitis B Vaccine Never done Mammogram Screening 12/03/2018 Colorectal Cancer Screening 09/27/2021 Pbx Installer plan for next outreach: Will follow-up 2 weeks Signature: Jeanie Murphy RN September 20, 2023 Sonia Cr RPh 09/20/2023 2:29 PM Signed Aware; nursing working on PA. Addition of GLP1 will add with hyperglycemia. Recent change to toujeo so will not make adjustments at this time. Sonia Cr RPh Allergies As of Date: 09/20/2023 Noted Allergy Reaction ADHESIVE TAPE (ROSINS) 03/27/2006 9 - Itching LATEX, NATURAL RUBBER 09/09/2018 2 - Rash METFORMIN 07/22/2018 14 - Other: See Comments Comments: Caused arrhythmia issues SEASONAL ALLERGIES 03/01/2023 9 - Itching SIMVASTATIN 11/04/2012 14 - Other: See Comments Comments: myalgia Date Reviewed: 09/12/2023 Reviewed by: Georgette Ness LPN - Fully Assessed Reason for Visit: Flux Tube Attendant Chronic Care [4759] Cmt: PCC follow up Prescriptions as of 09/20/2023 - liraglutide (VICTOZA) 0.6 mg/ 0.1 ml subcutaneous pen injector Inject 1.8 mg subcutaneously once daily. - insulin glargine U-300 conc (TOUJEO MAX U-300 SOLOSTAR) 300 unit/mL (3 mL) inpn Inject 90 Units subcutaneously every morning. - pantoprazole DR (PROTONIX) 40 mg tablet take 1 tablet by mouth twice a day - insulin needles, DISPOSABLE, (PEN NEEDLE) 31 gauge x 5/16 Use 5 needles per dose. 5 per day for her insulin. - insulin lispro (HUMALOG KWIKPEN) 100 unit/mL INJECT 8 UNITS SUBCUTANEOUSLY THREE TIMES A DAY BEFORE MEALS - glyBURIDE 5 mg tablet Take 2 tablets by mouth daily with breakfast. - DULoxetine (CYMBALTA) 60 mg capsule Take 1 capsule by mouth two times a day. - magnesium oxide (MAG-OX) 400 mg (241.3 mg magnesium) tablet Take 1 tablet by mouth two times a day. - Pramipexole 0.75 mg tablet Take 1 tablet by mouth daily at bedtime. - ergocalciferol 50,000 unit capsule (VITAMIN D2, DRISDOL) Take 1 capsule by mouth one time a week. - gabapentin (NEURONTIN) 300 mg capsule Take 1 capsule by mouth daily at bedtime for 270 days. - flash glucose sensor (FREESTYLE LANCE 2 SENSOR) kit Use to check blood sugar before meals and at bedtime - Docusate Sodium (STOOL SOFTENER) 100 mg tab Take 1 capsule by mouth twice daily as needed - acetylcyst/onpaitS15/levomefol (METAFOLBIC PLUS ORAL) Take by mouth. - furosemide (LASIX) 40 mg tablet Take 1 tablet by mouth once daily. - cetirizine (ZYRTEC) 10 mg tablet Take 1 tablet by mouth once daily as needed (for itching, sneezing or runny nose). - losartan (COZAAR) 25 mg tablet (Discontinued) Take 1 tablet by mouth once daily. - blood sugar diagnostic (Fisher CoachworksTOUCH ULTRA TEST) test strip USE TO TEST BLOOD SUGAR THREE TIMES A DAY - aspirin, enteric coated (ECOTRIN LOW STRENGTH) 81 mg EC tablet Take 1 tablet by mouth once daily. - atorvastatin (LIPITOR) 10 mg tablet Take 1 tablet by mouth once daily. - spironolactone (ALDACTONE) 25 mg tablet Take 1 tablet by mouth once daily. - carvedilol (COREG) 25 mg tablet Take 1 tablet by mouth twice daily. 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03-07-2024 Miscellaneous Notes* Telephone Encounter - Maria A Purvis LPN - 09/19/2023 10:52 AM EST Prior authorization for Judy has been submitted via telephone (Tomo Clases). Reference # [id number]. Awaiting determination. documented in this encounterA[facility]03-[facility] Miscellaneous Notes* Telephone Encounter - Maria A Purvis LPN - 09/19/2023 10:50 AM EST Prior authorization for Freestyle Lance 2 sensor has been submitted via [employer]. Awaiting determination. documented in this encounterAdena [facility]03-01-2024 NoteHNO ID: [id number] Author: JAMIE GRAF DO Service: ? Author Type: Physician Type: Progress Notes Filed: 09/13/2023 20:24 Note Text: PharmD AND Physician Collaboration Note PharmD working in collaboration with provider staff for patient care I have reviewed the care plan and agree I confirm the diagnosis of: Type 2 diabetes mellitus with diabetic neuropathy, with long-term current use of insulin (hcc) (primary encounter diagnosis) Preventative health care Food insecurity Diabetes education, encounter for See Pharmacist's note for furthur details. Jamie Graf [facility]03-01-2024 History of Present illness Narrative* Jamie Graf DO - 09/13/2023 8:24 PM EST PharmD & Physician Collaboration Note PharmD working in collaboration with provider staff for patient care I have reviewed the care plan and agree I confirm the diagnosis of: Type 2 diabetes mellitus with diabetic neuropathy, with long-term current use of insulin (hcc) (primary encounter diagnosis) Preventative health care Food insecurity Diabetes education, encounter for See Pharmacist's note for furthur details. Jamie Graf DO * Sonia Cr RPh - 09/13/2023 3:26 PM EST Called pharmacy regarding insurance coverage - touo covered, $15 per month supply - freestyle lance sensor, needs STACY - efra grajeda Will message nursing for assistance. Sonia Cr RPh Time spent: 5 minutes * Sonia Cr RPh - 09/12/2023 3:51 PM EST REASON FOR CONSULT: diabetes Referring Provider: Dr. Thornton Date of Consult: 08/30/2023 Michelle Jules is a 58 year old female who is presenting for follow up visit in person. Patient consents to pharmacy collaborative practice agreement. . Historically followed with pharmD - last appt03/2023. HPI: SMBG - 366, 444, 495, 332, 271, 273, 273, 251 Post prandial - 358, 468, 445, 549, 376, 466, 481, 385 Denies s/s of hypo or hyperglycemia Has CGM but states insurance would not pay for it Payor: [employer] MEDICAID / Plan: [employer] BCBS MEDICAID [facility] / Product Type: Medicaid / Previously used CGM Reports recent stress with mom being in the hospital, son had an injury Regimen as below States frequently misses humalog lunch dose Reports does not miss lantus or pills States has been out of victoza - insurance needed an authorization? Has been out of therapy for at least a month Current Diabetes Medications Lantus - 45 units BID Humalog 8 units TID Victoza - 1.8 mg; see above Glyburide - 5 mg BID On BLAIRE/ARB: No, ACR <30 On Statin: Yes On aspirin: Yes Prior intolerance to metformin Payor: [employer] MEDICAID / Plan: [employer] MEDICAID [facility] / Product Type: Medicaid / 24 hour recall: Breakfast - cereal Lunch - pasta Dinner - doesn't remember Ex- and his mother do shopping She does the cooking BEDS7: negative Glass of pop x1 per day Tea is my weakness - not sweetened Previously spoke with dietitian Not interested at this time Past medical, family and social history reviewed and updated. REVIEW OF SYSTEMS Review of Systems Constitutional: Negative for chills and fever. PAST MEDICAL HISTORY Diagnosis Date Cardiomyopathy, nonischemic (HCC) 04/2013 Degenerative joint disease involving multiple joints shoulders, right knee Essential hypertension, benign Family history of colon cancer 5y screening cycle GERD (gastroesophageal reflux disease) Restless leg syndrome 02/09/2016 Snoring Vitamin D deficiency ALLERGIES Allergen Reactions Adhesive Tape (Natty* Itching Latex, Natural Rubb* Rash Metformin Other: See Comments Caused arrhythmia issues Seasonal Allergies Itching Simvastatin Other: See Comments myalgia VITALS: BP 115/70 Temp 36 C (96.8 F) Ht 5' 9 (1.753 m) Wt 241 lb (109.3 kg) BMI 35.59 kg/m EXAM: Last 3 Encounter BP Readings: Date: BP: 09/12/2023 115/70 08/30/2023 118/77 05/20/2023 127/76 Wt: 235 lb 12.8 oz (107 kg) BMI: 34.82 kg/(m^2) LABS: Reviewed Lab Results Component Value Date HBA1C 13.7 08/30/2023 HBA1C 12.5 05/20/2023 HBA1C 14.7 01/22/2023 HBA1C 6.8 02/23/2019 HBA1C 7.9 11/12/2018 HBA1C 9.4 07/21/2018 CMP: Glucose 304 01/25/2023 BUN 13 01/25/2023 Creatinine 0.64 01/25/2023 Sodium 137 01/25/2023 Potassium 4.2 01/25/2023 Albumin 4.0 01/25/2023 Calcium 9.4 01/25/2023 AST 16 01/25/2023 ALT 23 01/25/2023 Lab Results Component Value Date CHOL 177 01/25/2023 CHOL 147 07/21/2018 LDL 99 01/25/2023 LDL 63 07/21/2018 HDL 38 01/25/2023 HDL 38 07/21/2018 TG 201 01/25/2023 TG 230 07/21/2018 Albumin/Creat Ratio (mg/g) Date Value 01/25/2023 7 Creatinine clearance cannot be calculated (Patient's most recent lab result is older than the maximum 180 days allowed.) ASSESSMENT/PLAN 1. Type 2 diabetes mellitus with diabetic neuropathy, with long-term current use of insulin (HCC) -ICD9: 250.60, 357.2, V58.67, ICD10: E11.40, Z79.4 (primary diagnosis) - Uncontrolled - will call regarding CGM coverage - Statin prescribed - atorvastatin - minimize carb-based meal portions - Blood glucose monitoring on a once daily schedule - Discussed diabetic education issues of diabetes complications and monitoring required and hypoglycemic/hyperglycemic symptoms - LIRAGLUTIDE 0.6 MG/0.1 ML (18 MG/3 ML) SUBCUTANEOUS PEN INJECTOR - will call pharmacy regarding availability - CHANGE INSULIN GLARGINE (U-300) CONC. 300 UNIT/ML (3 ML) SUBCUTANEOUS PEN - CONTINUE humalog 2. Preventative health care - ICD9: V70.0, ICD10: Z00.00 - Counseled on healthy diet and regular exercise - Depression screening tool completed and reviewed with patient. Based on score and interview, patient is not at risk for depression and recommended no further intervention at this time. - DEPRESSION SCREENING/ASSESSMENT 3. Food insecurity - ICD9: V60.89, ICD10: Z59.41 Referral to food pantry 4. Diabetes education, encounter for - ICD9: V65.49, ICD10: Z71.89 As above Patient verbalized understanding of instructions. Thank you for allowing pharmacy to participate in this patient's care Sonia Cr RPh The majority of the pharmacy visit (> 50%) was spent counseling and/or coordinating care for thepatient. Xqxr-rt-lmyd time was 25 minutes. documented in this encounterAdena [facility]03-01-2024 NoteHNO ID: [id number] Author: SONIA CR RPh Service: ? Author Type: Pharmacist Type: Progress Notes Filed: 09/13/2023 15:33 Note Text: Called pharmacy regarding insurance coverage - toujeo covered, $15 per month supply - freestPinkelStar lance sensor, needs PA - efra grajeda Will message nursing for assistance. Sonia Cr RPh Time spent: 5 minutesNorthern [facility]02-29-[facility] Instructions* Patient Instructions* Sonia Cr RPh - 09/12/2023 4:07 PM EST Thank you for letting us care for you today! Below is a brief summary of our appointment. Please consider going to our food pantry after your visit. [facility] To get there: Continue straight from the [facility] desk to the elevators Ride the elevators to the first floor Continue straight to the main entrance of the [facility] building Walk outside to the [facility] and cross [facility] Enter the [facility] doors Turn to the left of the doors Continue down the mendoza until you see adiology Turn left at the radiology doors Continue straight until the hallway ends Turn right and the pantry is on the left - knock on the door to enter Phone for the pantry: [phone] Hours of operation: Mondays: 9am to 12pm Tu/: 9am to 12pm / 1pm to 3pm Wed/Fri: 9am to 12pm / 1pm to 2pm documented in this encounterAdena [facility] Center02-29-2024 NoteHNO ID: [id number] Author: SONIA CR RPh Service: ? Author Type: Pharmacist Type: Progress Notes Filed: 09/13/2023 15:33 Note Text: REASON FOR CONSULT: diabetes Referring Provider: Dr. Thornton Date of Consult: 08/30/2023 Michelle Jules is a 58 year old female who is presenting for follow up visit in person. Patient consents to pharmacy collaborative practice agreement. . Historically followed with pharmD - last appt 03/2023. HPI: SMBG - 366, 444, 495, 332, 271, 273, 273, 251 Post prandial - 358, 468, 445, 549, 376, 466, 481, 385 Denies s/s of hypo or hyperglycemia Has CGM but states insurance would not pay for it Payor: [employer] MEDICAID / Plan: AN[employer]M BCBS MED[place] / Product Type: Medicaid / Previously used CGM Reports recent stress with mom being in the hospital, son had an injury Regimen as below States frequently misses humalog lunch dose Reports does not miss lantus or pills States has been out of victoza - insurance needed an authorization? Has been out of therapy for at least a month Current Diabetes Medications Lantus - 45 units BID Humalog 8 units TID Victoza - 1.8 mg; see above Glyburide - 5 mg BID On BLAIRE/ARB: No, ACR <30 On Statin: Yes On aspirin: Yes Prior intolerance to metformin Payor: [employer] MEDICAID / Plan: [employer] [employer]BS MED[place] / Product Type: Medicaid / 24 hour recall: Breakfast - cereal Lunch - pasta Dinner - doesn't remember Ex- and his mother do shopping She does the cooking BEDS7: negative Glass of pop x1 per day Tea is my weakness - not sweetened Previously spoke with dietitian Not interested at this time Past medical, family and social history reviewed and updated. REVIEW OF SYSTEMS Review of Systems Constitutional: Negative for chills and fever. PAST MEDICAL HISTORY Diagnosis Date Cardiomyopathy, nonischemic (HCC) 04/2013 Degenerative joint disease involving multiple joints shoulders, right knee Essential hypertension, benign Family history of colon cancer 5y screening cycle GERD (gastroesophageal reflux disease) Restless leg syndrome 02/09/2016 Snoring Vitamin D deficiency ALLERGIES Allergen Reactions Adhesive Tape (Natty* Itching Latex, Natural Rubb* Rash Metformin Other: See Comments Caused arrhythmia issues Seasonal Allergies Itching Simvastatin Other: See Comments myalgia VITALS: BP 115/70 Temp 36 ?C (96.8 ?F) Ht 5' 9 (1.753 m) Wt 241 lb (109.3 kg) BMI 35.59 kg/m? EXAM: Last 3 Encounter BP Readings: Date: BP: 09/12/2023 115/70 08/30/2023 118/77 05/20/2023 127/76 Wt: 235 lb 12.8 oz (107 kg) BMI: 34.82 kg/(m2) LABS: Reviewed Lab Results Component Value Date HBA1C 13.7 08/30/2023 HBA1C 12.5 05/20/2023 HBA1C 14.7 01/22/2023 HBA1C 6.8 02/23/2019 HBA1C 7.9 11/12/2018 HBA1C 9.4 07/21/2018 CMP: Glucose 304 01/25/2023 BUN 13 01/25/2023 Creatinine 0.64 01/25/2023 Sodium 137 01/25/2023 Potassium 4.2 01/25/2023 Albumin 4.0 01/25/2023 Calcium 9.4 01/25/2023 AST 16 01/25/2023 ALT 23 01/25/2023 Lab Results Component Value Date CHOL 177 01/25/2023 CHOL 147 07/21/2018 LDL 99 01/25/2023 LDL 63 07/21/2018 HDL 38 01/25/2023 HDL 38 07/21/2018 TG 201 01/25/2023 TG 230 07/21/2018 Albumin/Creat Ratio (mg/g) Date Value 01/25/2023 7 Creatinine clearance cannot be calculated (Patient's most recent lab result is older than the maximum 180 days allowed.) ASSESSMENT/PLAN 1. Type 2 diabetes mellitus with diabetic neuropathy, with long-term current use of insulin (HCC) - ICD9: 250.60, 357.2, V58.67, ICD10: E11.40, Z79.4 (primary diagnosis) - Uncontrolled - will call regarding CGM coverage - Statin prescribed - atorvastatin - minimize carb-based meal portions - Blood glucose monitoring on a once daily schedule - Discussed diabetic education issues of diabetes complications and monitoring required and hypoglycemic/hyperglycemic symptoms - LIRAGLUTIDE 0.6 MG/0.1 ML (18 MG/3 ML) SUBCUTANEOUS PEN INJECTOR - will call pharmacy regarding availability - CHANGE INSULIN GLARGINE (U-300) CONC. 300 UNIT/ML (3 ML) SUBCUTANEOUS PEN - CONTINUE humalog 2. Preventative health care - ICD9: V70.0, ICD10: Z00.00 - Counseled on healthy diet and regular exercise - Depression screening tool completed and reviewed with patient. Based on score and interview, patient is not at risk for depression and recommended no further intervention at this time. - DEPRESSION SCREENING/ASSESSMENT 3. Food insecurity - ICD9: V60.89, ICD10: Z59.41 Referral to food pantry 4. Diabetes education, encounter for - ICD9: V65.49, ICD10: Z71.89 As above Patient verbalized understanding of instructions. Thank you for allowing pharmacy to participate in this patient's care Sonia Cr RPh ?The majority of the pharmacy visit (> 50%) was spent counseling and/or coordinating care for the patient. Mblk-ex-efow time was 25 minutes.?[facility]02-23-2024 NoteHNO ID: [id number] Author: JEANIE MURPHY RN Service: ? Author Type: Registered Nurse Type: Progress Notes Filed: 09/06/2023 12:46 Note Text: PRIMARY CARE COORDINATION QUICK NOTE Provider Action/FYI Patient identified by name and date . PCC attempted PCC follow up. PCC unable to leave message. PCC will attempt to contact patient again at a later date. PCC instructed patient to call [phone] with any questions or concerns. Jeanie Murphy RN September 06, 2023 12:44 [facility]02-23-2024 History of Present illness Narrative* Jeanie Murphy RN - 09/06/2023 12:41 PM EST PRIMARY CARE COORDINATION QUICK NOTE Provider Action/FYI Patient identified by name and date . PCC attempted PCC follow up. PCC unable to leave message. PCC will attempt to contact patient againat a later date. PCC instructed patient to call [phone] with any questions or concerns. Jeanie Murphy RN September 06, 2023 12:44 PM documented in this encounterAdena Fayette [facility]02-23-2024 NotePatient Outreach (AGACM) MICHELLE JULES ([id number]) 1965 F Date Time Provider Department 09/06/23 JEANIE MURPHY [facility] During your visit today, we recorded the following information about you: Jeanie Murphy RN 09/06/2023 12:46 PM Signed PRIMARY CARE COORDINATION QUICK NOTE Provider Action/FYI Patient identified by name and date . PCC attempted PCC follow up. PCC unable to leave message. PCC will attempt to contact patient again at a later date. PCC instructed patient to call [phone] with any questions or concerns. Jeanie Murphy RN September 06, 2023 12:44 PM Allergies As of Date: 09/06/2023 Noted Allergy Reaction ADHESIVE TAPE (ROSINS) 03/27/2006 9 - Itching LATEX, NATURAL RUBBER 09/09/2018 2 - Rash METFORMIN 07/22/2018 14 - Other: See Comments Comments: Caused arrhythmia issues SEASONAL ALLERGIES 03/01/2023 9 - Itching SIMVASTATIN 11/04/2012 14 - Other: See Comments Comments: myalgia Date Reviewed: 08/30/2023 Reviewed by: Williams Rubin MD - Fully Assessed Reason for Visit: Flux Tube Attendant Chronic Care [3617] Cmt: Attempted PCC follow up Prescriptions as of 09/06/2023 - insulin glargine (BASAGLAR KWIKPEN U-100 INSULIN) 100 unit/mL (3 mL) Inject 45 Units subcutaneously two times a day. - liraglutide (VICTOZA) 0.6 mg/ 0.1 ml subcutaneous pen injector Inject 1.8 mg subcutaneously once daily. - insulin needles, DISPOSABLE, (PEN NEEDLE) 31 gauge x 16 Use 5 needles per dose. 5 per day for her insulin. - insulin lispro (HUMALOG KWIKPEN) 100 unit/mL INJECT 8 UNITS SUBCUTANEOUSLY THREE TIMES A DAY BEFORE MEALS - glyBURIDE 5 mg tablet Take 2 tablets by mouth daily with breakfast. - DULoxetine (CYMBALTA) 60 mg capsule Take 1 capsule by mouth two times a day. - magnesium oxide (MAG-OX) 400 mg (241.3 mg magnesium) tablet Take 1 tablet by mouth two times a day. - Pramipexole 0.75 mg tablet Take 1 tablet by mouth daily at bedtime. - ergocalciferol 50,000 unit capsule (VITAMIN D2, DRISDOL) Take 1 capsule by mouth one time a week. - gabapentin (NEURONTIN) 300 mg capsule Take 1 capsule by mouth daily at bedtime for 270 days. - flash glucose sensor (FREESTYLE LANCE 2 SENSOR) kit Use to check blood sugar before meals and at bedtime - Docusate Sodium (STOOL SOFTENER) 100 mg tab Take 1 capsule by mouth twice daily as needed - acetylcyst/hnbuvuB24/levomefol (METAFOLBIC PLUS ORAL) Take by mouth. - oxybutynin ER (DITROPAN XL) 15 mg 24 hr Extended Rel Tab Take 1 tablet by mouth once daily. - pantoprazole DR (PROTONIX) 40 mg tablet Take 1 tablet by mouth twice daily. - furosemide (LASIX) 40 mg tablet Take 1 tablet by mouth once daily. - cetirizine (ZYRTEC) 10 mg tablet Take 1 tablet by mouth once daily as needed (for itching, sneezing or runny nose). - losartan (COZAAR) 25 mg tablet (Discontinued) Take 1 tablet by mouth once daily. - blood sugar diagnostic ([place] ULTRA TEST) test strip USE TO TEST BLOOD SUGAR THREE TIMES A DAY - aspirin, enteric coated (ECOTRIN LOW STRENGTH) 81 mg EC tablet Take 1 tablet by mouth once daily. - atorvastatin (LIPITOR) 10 mg tablet Take 1 tablet by mouth once daily. - spironolactone (ALDACTONE) 25 mg tablet Take 1 tablet by mouth once daily. - carvedilol (COREG) 25 mg tablet Take 1 tablet by mouth twice daily. 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] 01/24/2012 Anxiety disorder due to medical condition [F06.* Vitamin D deficiency [E55.9] Family history of colon cancer [Z80.0] Cardiomyopathy, nonischemic (HCC) [I42.8] 04/14/2013 Abnormality of gait [R26.9] 05/04/2014 Ganglion cyst of right foot [M67.471] 09/09/2015 Biventricular ICD (implantable cardioverter-def*10/10/2015 Uncontrolled type 2 diabetes mellitus with diab*12/21/2015 Restless leg syndrome [G25.81] 02/09/2016 Peroneal tendinitis [M76.70] 07/12/2016 Pain in joint, ankle and foot [M25.579] 07/12/2016 Nonallergic rhinitis [J31.0] 04/03/2018 Cystocele with prolapse [N81.4] 11/12/2018 Urgency of urination [R39.15] 11/12/2018 Mixed incontinence [N39.46] 11/12/2018 Obesity, Class II, BMI 35-39.9 [E66.9] 01/22/2023 Hyperlipidemia, mixed [E78.2] 05/20/2023 Encounter Status:Closed by JEANIE MURPHY on 09/06/23[facility] 08-30-2023 NoteHNO ID: [id number] Author: GIFTY THORNTON, DO Service: ? Author Type: Physician Type: Progress Notes Filed: 08/30/2023 23:25 Note Text: Attending Note I personally saw the patient along with the resident. I agree with the assessment and plan, and participated in the medical decision making during this visit. I confirm the jefferson elements of the history. I confirm the jefferson elements of the physical exam. I reviewed the findings with the resident I confirm the diagnosis of Type 2 diabetes mellitus with diabetic neuropathy, with long-term current use of insulin (hcc) (primary encounter diagnosis) Anxiety with depression Chronic constipation Intertrigo Type 2 diabetes mellitus with complication, without long-term current use of insulin (hcc) and agree with the resident's plan of care. See resident's note for further details. Gifty Thornton DON[facility]02-[facility] History of Present illness Narrative* Gifty Thornton DO - 08/30/2023 11:25 PM EST Attending Note I personally saw the patient along with the resident. I agree with the assessment and plan, and participated in the medical decision making during this visit. I confirm the jefferson elements of the history. I confirm the jefferson elements of the physical exam. I reviewed the findings with the resident I confirm the diagnosis of Type 2 diabetes mellitus with diabetic neuropathy, with long-term current use of insulin (hcc) (primary encounter diagnosis) Anxiety with depression Chronic constipation Intertrigo Type 2 diabetes mellitus with complication, without long-term current use of insulin (hcc) and agree with the resident's plan of care. See resident's note for further details. Gifty Thornton DO * Williams Rubin MD - 08/30/2023 2:40 PM EST Images from the original note were not included. [facility] [address] [facility] / [address] [place], [place] [address] Visit Date: August 30, 2023 Name: Michelle Jules Date of : 1965 MRN/E #: [id number] Subjective Patient is a 58 year old year old female with PMH essential hypertension, biventricular ICD in place, hyperlipidemia, uncontrolled type 2 diabetes mellitus with long-term use of insulin, restless legsyndrome presenting in the office today with the following: Diabetes She presents for her follow-up diabetic visit. She has type 2 diabetes mellitus. Her disease coursehas been worsening. Pertinent negatives for hypoglycemia include no confusion, dizziness or tremors. - Associated symptoms include fatigue, polydipsia, polyuria and weight loss. - - - Pertinent negatives for diabetes include no blurred vision, no foot paresthesias and no polyphagia. Symptoms are worsening. - 8 units lispro with meals, 1.8 mg Victoza increased 08/12/23 notified by Jeanie Murphy, 45 units Lantus and misses when running low. Also taking glyburide 5mg - Lost 8 Ibs since may - cut back on tea, 1 can of sugar-free pop a day. - A1c today is 13.7 - Need refill for Victoza and Lantus - feeling more depressed we had increased Duloxetine to 120 mg on 08/02/23 - Patient is stress eating : Watching oa-bebvvi-us-law and real mom in hospital.mom hospitalized and she is stress eating peanut butter sugar free honey in it and eats it with crackers and a root beer float, bananas - has met with Dr. Cr - Her insurance won't cover CGM - Fasting low 200s and high 500s Constipated - taking stool softeners BID - drinking over 32 oz of water daily Intertrigo - doesn't itch, has always had it since diagnosed with diabetes - has a smell and feels irritated - ROS negative other than stated in HPI. - I have confirmed and edited as necessary the chief complaint, medications, past medical, family and social histories. Part of this note has been created using voice recognition software. It may contain errors which are inherent in voice-recognition technology. Objective Vital Signs BP 118/77 (BP Site: Right Arm, BP Position: Sitting) Pulse 81 Temp 36.1 C (97 F) Ht 5' 9 (1.753 m) Wt 235 lb 12.8 oz (107 kg) SpO2 95% BMI 34.82 kg/m Last 3 Encounter BP Readings: Date: BP: 05/20/2023 127/76 03/29/2023 134/77 03/15/2023 130/75 Last 3 Encounter Wt Readings: Date: Wt: 05/20/2023 242 lb 6.4 oz (110 kg) 04/03/2023 243 lb (110.2 kg) 03/29/2023 242 lb (109.8 kg) Physical Exam Vitals reviewed. Constitutional: General: She is not in acute distress. Appearance: Normal appearance. She is not ill-appearing. HENT: Nose: No congestion. Mouth/Throat: Mouth: Mucous membranes are moist. Eyes: Extraocular Movements: Extraocular movements intact. Cardiovascular: Rate and Rhythm: Normal rate and regular rhythm. Heart sounds: Normal heart sounds. No murmur heard. Pulmonary: Effort: Pulmonary effort is normal. No respiratory distress. Breath sounds: No wheezing, rhonchi or rales. Abdominal: General: There is no distension. Palpations: Abdomen is soft. There is no mass. Tenderness: There is no abdominal tenderness. There is no guarding. Hernia: No hernia is present. Musculoskeletal: Cervical back: Normal range of motion. Right lower leg: No edema. Left lower leg: No edema. Skin: General: Skin is warm. Capillary Refill: Capillary refill takes less than 2 seconds. Coloration: Skin is not jaundiced. Findings: No erythema or rash. Comments: Skin under panus was dry; no yeast Neurological: General: No focal deficit present. Mental Status: She is alert and oriented to person, place, and time. Psychiatric: Mood and Affect: Mood normal. Behavior: Behavior normal. Feet:Shoes and socks removed, Are you having foot pain No, No deformities, ulcers, calluses, and normal distal pulses ASSESSMENT/PLAN: 1. Type 2 diabetes mellitus with diabetic neuropathy, with long-term current use of insulin ([facility]) -ICD9: 250.60, 357.2, V58.67, ICD10: E11.40, Z79.4 (primary diagnosis) - Uncontrolled - Worsening control - Counseled on healthy diet and regular exercise - Discussed need for and benefit of weight loss. BMI 34.82 kg/(m^2) - Discussed diabetic education issues of - LIRAGLUTIDE 0.6 MG/0.1 ML (18 MG/3 ML) SUBCUTANEOUS PEN INJECTOR - CARLOS FELICIANO U-100 INSULIN 100 UNIT/ML (3 ML) SUBCUTANEOUS - PEN NEEDLE, DIABETIC 31 GAUGE X /16 - INSULIN LISPRO (U-100) 100 UNIT/ML SUBCUTANEOUS PEN - GLYBURIDE 10 MG TABLET, increased from 5 mg - CONSULT TO [facility] ([facility] ONLY) - Will have close follow-up. - Consider referral to endocrinology 2. Anxiety with depression - ICD9: 300.4, ICD10: F41.8 - CONSULT BEHAVIORAL HEALTH 3. Chronic constipation - ICD9: 564.00, ICD10: K59.09 - Patient will continue taking stool softener OTC 4. Intertrigo - ICD9: 695.89, ICD10: L30.4 - No yeast. Counseled patient on keeping area dry and cleansing with mild cleanser Discussed the above with the patient using shared decision-making. The patient is in agreement with the diagnostic and treatment plans. I spent a total of 70 minutes on the date of the service which included preparing to see the patient, [id number] patient care, completing clinical documentation, obtaining and/or reviewing separately obtained history, performing a medically appropriate examination, counseling and educating the pat ient/family/caregiver, ordering medications, tests, or procedures, communicating with other HCPs (not separately reported), independently interpreting results (not separately reported), and communicating results to the patient/family/caregiver. Provider: Williams Rubin MD Date: August 30, 2023 Time: 7:04 AM Williams Rubin Family Medicine, PGY-I [facility] NoteHNO ID: [id number] Author: WILLIAMS RUBIN MD Service: ? Author Type: Resident Type: Progress Notes Filed: 08/30/2023 21:23 Note Text: [facility] [address] [place] [address] [facility] [address] [place] [id number] Visit Date: August 30, 2023 Name: Michelle Jules Date of : 1965 MRN/E #: [id number] Subjective Patient is a 58 year old year old female with PMH essential hypertension, biventricular ICD in place, hyperlipidemia, uncontrolled type 2 diabetes mellitus with long-term use of insulin, restless leg syndrome presenting in the office today with the following: Diabetes She presents for her follow-up diabetic visit. She has type 2 diabetes mellitus. Her disease course has been worsening. Pertinent negatives for hypoglycemia include no confusion, dizziness or tremors. - Associated symptoms include fatigue, polydipsia, polyuria and weight loss. - - - Pertinent negatives for diabetes include no blurred vision, no foot paresthesias and no polyphagia. Symptoms are worsening. - 8 units lispro with meals, 1.8 mg Victoza increased 08/12/23 notified by Jeanie Murphy, 45 units Lantus and misses when running low. Also taking glyburide 5mg - Lost 8 Ibs since may - cut back on tea, 1 can of sugar-free pop a day. - A1c today is 13.7 - Need refill for Victoza and Lantus - feeling more depressed we had increased Duloxetine to 120 mg on 08/02/23 - Patient is stress eating : Watching ai-ezknwn-cq-law and real mom in hospital.mom hospitalized and she is stress eating peanut butter sugar free honey in it and eats it with crackers and a root beer float, bananas - has met with Dr. Cr - Her insurance won't cover CGM - Fasting low 200s and high 500s Constipated - taking stool softeners BID - drinking over 32 oz of water daily Intertrigo - doesn't itch, has always had it since diagnosed with diabetes - has a smell and feels irritated - ROS negative other than stated in HPI. - I have confirmed and edited as necessary the chief complaint, medications, past medical, family and social histories. Part of this note has been created using voice recognition software. It may contain errors which are inherent in voice-recognition technology. Objective Vital Signs BP 118/77 (BP Site: Right Arm, BP Position: Sitting) Pulse 81 Temp 36.1 ?C (97 ?F) Ht 5' 9 (1.753 m) Wt 235 lb 12.8 oz (107 kg) SpO2 95% BMI 34.82 kg/m? Last 3 Encounter BP Readings: Date: BP: 05/20/2023 127/76 03/29/2023 134/77 03/15/2023 130/75 Last 3 Encounter Wt Readings: Date: Wt: 05/20/2023 242 lb 6.4 oz (110 kg) 04/03/2023 243 lb (110.2 kg) 03/29/2023 242 lb (109.8 kg) Physical Exam Vitals reviewed. Constitutional: General: She is not in acute distress. Appearance: Normal appearance. She is not ill-appearing. HENT: Nose: No congestion. Mouth/Throat: Mouth: Mucous membranes are moist. Eyes: Extraocular Movements: Extraocular movements intact. Cardiovascular: Rate and Rhythm: Normal rate and regular rhythm. Heart sounds: Normal heart sounds. No murmur heard. Pulmonary: Effort: Pulmonary effort is normal. No respiratory distress. Breath sounds: No wheezing, rhonchi or rales. Abdominal: General: There is no distension. Palpations: Abdomen is soft. There is no mass. Tenderness: There is no abdominal tenderness. There is no guarding. Hernia: No hernia is present. Musculoskeletal: Cervical back: Normal range of motion. Right lower leg: No edema. Left lower leg: No edema. Skin: General: Skin is warm. Capillary Refill: Capillary refill takes less than 2 seconds. Coloration: Skin is not jaundiced. Findings: No erythema or rash. Comments: Skin under panus was dry; no yeast Neurological: General: No focal deficit present. Mental Status: She is alert and oriented to person, place, and time. Psychiatric: Mood and Affect: Mood normal. Behavior: Behavior normal. Feet:Shoes and socks removed, Are you having foot pain No, No deformities, ulcers, calluses, and normal distal pulses ASSESSMENT/PLAN: 1. Type 2 diabetes mellitus with diabetic neuropathy, with long-term current use of insulin ([facility]) - ICD9: 250.60, 357.2, V58.67, ICD10: E11.40, Z79.4 (primary diagnosis) - Uncontrolled - Worsening control - Counseled on healthy diet and regular exercise - Discussed need for and benefit of weight loss. BMI 34.82 kg/(m2) - Discussed diabetic education issues of - LIRAGLUTIDE 0.6 MG/0.1 ML (18 MG/3 ML) SUBCUTANEOUS PEN INJECTOR - BASAGLAR KWIKPEN U-100 INSULIN 100 UNIT/ML (3 ML) SUBCUTANEOUS - PEN NEEDLE, DIABETIC 31 GAUGE X 5/16 - INSULIN LISPRO (U-100) 100 UNIT/ML SUBCUTANEOUS PEN - GLYBURIDE 10 MG TABLET, increased from 5 mg - [facility]ULT [facility] ([facility]) - Will have close follow-up. - Consider referral to endocrinology 2. Anxie (more content not included)...[facility]02-01-2024 NoteHNO ID: [id number] Author: WILLIAMS RUBIN MD Service: ? Author Type: Resident Type: Progress Notes Filed: 08/15/2023 18:36 Note Text: Thank you! Noted. Williams Rubin, [facility]01-29-2024 NoteHNO ID: [id number] Author: JEANIE MURPHY RN Service: ? Author Type: Registered Nurse Type: Progress Notes Filed: 08/12/2023 14:24 Note Text: PRIMARY CARE COORDINATION QUICK NOTE Provider Action/FYI Patient identified by name and date . PCC contacted patient and made her aware of increase of Victoza to 1.8 mg daily. Patient has no questions or concerns. Jenaie Murphy RN August 12, 2023 2:24 [facility]01-26-2024 NoteHNO ID: [id number] Author: JEANIE MURPHY RN Service: ? Author Type: Registered Nurse Type: Progress Notes Filed: 08/09/2023 14:40 Note Text: PRIMARY CARE COORDINATION QUICK NOTE Provider Action/FYI Patient identified by name and date . PCC attempted to contact patient with Pharm D note. PCC left message with pharm D information. PCC asked patient to call PCC back at [phone] to confirm she received the information. Jeanie Murphy RN August 09, 2023 2:40 [facility]01-26-2024 NoteHNO ID: [id number] Author: SONIA CR RPh Service: ? Author Type: Pharmacist Type: Progress Notes Filed: 08/09/2023 14:27 Note Text: Victoza last increased 06/2023. Please assess if patient is having s/s of N/V/C/D. If not, can increase to 1.8 mg daily (max dose). Sonia Cr [facility]01-26-2024 NoteHNO ID: [id number] Author: JEANIE MURPHY RN Service: ? Author Type: Registered Nurse Type: Progress Notes Filed: 08/09/2023 14:27 Note Text: AG PRIMARY CARE COORDINATION FOLLOW-UP NOTE Provider Action/FYI: Patient identified by name and date of : YES Spoke to: patient Summary: PCC contacted patient for PCC follow up. Patient said blood sugars have been 230-240 recently. Patient said she has no had any blood sugars under 200. Patient said most her blood sugars are fasting. Patient tries to check blood sugars once daily. Patient said she has been compliant with her medications and taking all as prescribed. PCC confirmed all diabetic medication and doses. Patient are is taking as ordered. Patient missed last Pharm D appointment. Patient has appointment 08/30/2023 with PCP for diabetic follow up. PCC instructed patient to call [phone] with any questions or concerns. Health leads screening tool questions performed? No N/A Concerns: Goals: Active Goals - Current status as of 08/09/2023 at 2:17 PM Most Recent Blood Pressure < 130/80 127/76 (05/20/2023) Confirm medication adherence of all prescribed medications and uses them correctly Hemoglobin A1C < 7 6.8 (02/23/2019) LDL at or below 100 mg/dL or on a high statin Health Maintenance Topics with due status: Overdue Topic Date Due Hepatitis B Vaccine Never done Mammogram Screening 12/03/2018 Colorectal Cancer Screening 09/27/2021 Depression Assessment 07/15/2023 Pbx Installer plan for next outreach: Will follow-up 3 weeks Signature: Jeanie Murphy RN August 09[facility]01-26-2024 NotePatient Outreach ([facility]) MICHELLE JULES ([id number]) 1965 F Date Time Provider Department 08/09/23 JEANIE MURPHY [facility] During your visit today, we recorded the following information about you: Jeanie Murphy RN 08/09/2023 2:27 PM Signed AG PRIMARY CARE COORDINATION FOLLOW-UP NOTE Provider Action/FYI: Patient identified by name and date of : YES Spoke to: patient Summary: PCC contacted patient for PCC follow up. Patient said blood sugars have been 230-240 recently. Patient said she has no had any blood sugars under 200. Patient said most her blood sugars are fasting. Patient tries to check blood sugars once daily. Patient said she has been compliant with her medications and taking all as prescribed. PCC confirmed all diabetic medication and doses. Patient are is taking as ordered. Patient missed last Pharm D appointment. Patient has appointment 08/30/2023 with PCP for diabetic follow up. PCC instructed patient to call [phone] with any questions or concerns. Health leads screening tool questions performed? No N/A Concerns: Goals: Active Goals - Current status as of 08/09/2023 at 2:17 PM Most Recent Blood Pressure < 130/80 127/76 (05/20/2023) Confirm medication adherence of all prescribed medications and uses them correctly Hemoglobin A1C < 7 6.8 (02/23/2019) LDL at or below 100 mg/dL or on a high statin Health Maintenance Topics with due status: Overdue Topic Date Due Hepatitis B Vaccine Never done Mammogram Screening 12/03/2018 Colorectal Cancer Screening 09/27/2021 Depression Assessment 07/15/2023 Pbx Installer plan for next outreach: Will follow-up 3 weeks Signature: Jeanie Murphy RN August 09, 2023 Sonia Cr [facility] 08/09/2023 2:27 PM Signed Victoza last increased 06/2023. Please assess if patient is having s/s of N/V/C/D. If not, can increase to 1.8 mg daily (max dose). Sonia Cr [facility] Jeanie Murphy RN 08/09/2023 2:40 PM Signed PRIMARY CARE COORDINATION QUICK NOTE Provider Action/FYI Patient identified by name and date . PCC attempted to contact patient with Pharm D note. PCC left message with pharm D information. PCC asked patient to call PCC back at [phone] to confirm she received the information. Jeanie Murphy RN August 09, 2023 2:40 PM Jeanie Murphy RN 08/12/2023 2:24 PM Signed PRIMARY CARE COORDINATION QUICK NOTE Provider Action/FYI Patient identified by name and date . PCC contacted patient and made her aware of increase of Victoza to 1.8 mg daily. Patient has no questions or concerns. Jeanie Murphy RN August 12, 2023 2:24 PM Williams Rubin MD 08/15/2023 6:36 PM Signed Thank you! Noted. 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 - magnesium oxide (MAG-OX) 400 mg (241.3 mg magnesium) tablet Take 1 tablet by mouth two times a day. - Pramipexole 0.75 mg tablet Take 1 tablet by mouth daily at bedtime. - ergocalciferol 50,000 unit capsule (VITAMIN D2, DRISDOL) Take 1 capsule by mouth one time a week. - insulin needles, DISPOSABLE, (PEN NEEDLE) 31 gauge x 5/16 Use 5 needles per dose. 5 per day for her insulin. - liraglutide (VICTOZA) 0.6 mg/ 0.1 ml subcutaneous pen injector Inject 1.2 mg subcutaneously once daily. - insulin glargine (BASAGLAR KWIKPEN U-100 INSULIN) 100 unit/mL (3 mL) Inject 45 Units subcutaneously two times a day. - insulin lispro (HUMALOG KWIKPEN) 100 unit/mL INJECT 8 UNITS SUBCUTANEOUSLY THREE TIMES A DAY BEFORE MEALS - gabapentin (NEURONTIN) 300 mg capsule Take 1 capsule by mouth daily at bedtime for 270 days. - flash glucose sensor (FREESTYLE LANCE 2 SENSOR) kit Use to check blood sugar before meals and at bedtime - Docusate Sodium (STOOL SOFTENER) 100 mg tab Take 1 capsule by mouth twice daily as needed - acetylcyst/hhpouuG44/levomefol (METAFOLBIC PLUS ORAL) Take by mouth. - glyBURIDE 5 mg tablet Take 1 tablet by mouth daily with breakfast. - oxybutynin ER (DITROPAN XL) 15 mg 24 hr Extended Rel Tab Take 1 tablet by mouth once daily. - pantoprazole DR (PROTONIX) 40 mg tablet Take 1 tablet by mouth twice daily. - furosemide (LASIX) 40 mg tablet Take 1 tablet by mouth once daily. - cetirizine (ZYRTEC) 10 mg tablet Take 1 tablet by mouth once daily as needed (for itching, sneezing or runny no (more content not included)...[facility]01-05-2024 NoteHNO ID: [id number] Author: JEANIE MURPHY RN Service: ? Author Type: Registered Nurse Type: Progress Notes Filed: 07/19/2023 14:21 Note Text: AG PRIMARY CARE COORDINATION FOLLOW-UP NOTE Provider Action/FYI: Patient identified by name and date of : YES Spoke to: patient Summary: PCC contacted patient for TCM follow up. Patient's insurance is now active. Patient requesting Pharm D appointment. PCC made patient an appointment for 07/25/2023 at 1520. Patient now says her medications are covered and went to pharmacy and picked up her prescribed medications. Patient has no other questions or concerns at this time. PCC instructed patient to call [phone] with any questions or concerns. Health leads screening tool questions performed? No N/A Concerns: Goals: Active Goals - Current status as of 07/19/2023 at 2:19 PM Most Recent Blood Pressure < 130/80 127/76 (05/20/2023) Confirm medication adherence of all prescribed medications and uses them correctly Hemoglobin A1C < 7 6.8 (02/23/2019) LDL at or below 100 mg/dL or on a high statin Health Maintenance Topics with due status: Overdue Topic Date Due Hepatitis B Vaccine Never done Mammogram Screening 12/03/2018 Colorectal Cancer Screening 09/27/2021 Depression Assessment 07/15/2023 Pbx Installer plan for next outreach: Will follow-up 3 weeks Signature: Jeanie Murphy RN July 19[facility]01-05-2024 NotePatient Outreach ([facility]) MICHELLE JULES ([id number]) 1965 F Date Time Provider Department 07/19/23 JEANIE MURPHY [facility] During your visit today, we recorded the following information about you: Jeanie Murphy RN 07/19/2023 2:21 PM Signed AG PRIMARY CARE COORDINATION FOLLOW-UP NOTE Provider Action/FYI: Patient identified by name and date of : YES Spoke to: patient Summary: PCC contacted patient for TCM follow up. Patient's insurance is now active. Patient requesting Pharm D appointment. PCC made patient an appointment for 07/25/2023 at 1520. Patient now says her medications are covered and went to pharmacy and picked up her prescribed medications. Patient has no other questions or concerns at this time. PCC instructed patient to call [phone] with any questions or concerns. Health leads screening tool questions performed? No N/A Concerns: Goals: Active Goals - Current status as of 07/19/2023 at 2:19 PM Most Recent Blood Pressure < 130/80 127/76 (05/20/2023) Confirm medication adherence of all prescribed medications and uses them correctly Hemoglobin A1C < 7 6.8 (02/23/2019) LDL at or below 100 mg/dL or on a high statin Health Maintenance Topics with due status: Overdue Topic Date Due Hepatitis B Vaccine Never done Mammogram Screening 12/03/2018 Colorectal Cancer Screening 09/27/2021 Depression Assessment 07/15/2023 Pbx Installer plan for next outreach: Will follow-up 3 weeks Signature: Jeanie Murphy RN July 19, 2023 Allergies As of Date: 07/19/2023 Noted Allergy Reaction ADHESIVE TAPE (ROSINS) 03/27/2006 9 - Itching LATEX, NATURAL RUBBER 09/09/2018 2 - Rash METFORMIN 07/22/2018 14 - Other: See Comments Comments: Caused arrhythmia issues SEASONAL ALLERGIES 03/01/2023 9 - Itching SIMVASTATIN 11/04/2012 14 - Other: See Comments Comments: myalgia Date Reviewed: 05/20/2023 Reviewed by: Lilli See LPN - Fully Assessed Reason for Visit: Flux Tube Attendant Chronic Care [9043] Cmt: PCC follow up Prescriptions as of 07/19/2023 - liraglutide (VICTOZA) 0.6 mg/ 0.1 ml subcutaneous pen injector Inject 1.2 mg subcutaneously once daily. - insulin glargine (BASAGLAR KWIKPEN U-100 INSULIN) 100 unit/mL (3 mL) Inject 45 Units subcutaneously two times a day. - insulin lispro (HUMALOG KWIKPEN) 100 unit/mL INJECT 8 UNITS SUBCUTANEOUSLY THREE TIMES A DAY BEFORE MEALS - gabapentin (NEURONTIN) 300 mg capsule Take 1 capsule by mouth daily at bedtime for 270 days. - flash glucose sensor (FREESTYLE LANCE 2 SENSOR) kit Use to check blood sugar before meals and at bedtime - insulin needles, DISPOSABLE, (PEN NEEDLE) 31 gauge x 5/16 Use one needle per dose. 1 per day. - Docusate Sodium (STOOL SOFTENER) 100 mg tab Take 1 capsule by mouth twice daily as needed - ergocalciferol 50,000 unit capsule (VITAMIN D2, DRISDOL) Take 1 capsule by mouth one time a week. - DULoxetine (CYMBALTA) 60 mg capsule Take 1 capsule by mouth once daily. - acetylcyst/sydgunO16/levomefol (METAFOLBIC PLUS ORAL) Take by mouth. - glyBURIDE 5 mg tablet Take 1 tablet by mouth daily with breakfast. - oxybutynin ER (DITROPAN XL) 15 mg 24 hr Extended Rel Tab Take 1 tablet by mouth once daily. - pantoprazole DR (PROTONIX) 40 mg tablet Take 1 tablet by mouth twice daily. - furosemide (LASIX) 40 mg tablet Take 1 tablet by mouth once daily. - cetirizine (ZYRTEC) 10 mg tablet Take 1 tablet by mouth once daily as needed (for itching, sneezing or runny nose). - losartan (COZAAR) 25 mg tablet (Discontinued) Take 1 tablet by mouth once daily. - Pramipexole 0.75 mg tablet Take 1 tablet by mouth daily at bedtime. - blood sugar diagnostic ([place] ULTRA TEST) test strip USE TO TEST BLOOD SUGAR THREE TIMES A DAY - aspirin, enteric coated (ECOTRIN LOW STRENGTH) 81 mg EC tablet Take 1 tablet by mouth once daily. - atorvastatin (LIPITOR) 10 mg tablet Take 1 tablet by mouth once daily. - spironolactone (ALDACTONE) 25 mg tablet Take 1 tablet by mouth once daily. - carvedilol (COREG) 25 mg tablet Take 1 tablet by mouth twice daily. - magnesium oxide (MAG-OX) 400 mg (241.3 mg magnesium) tablet Take 1 tablet by mouth twice daily. 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 2023 NoteHNO ID: [id number] Author: Williams Rubin MD Service: ? Author Type: Resident Type: Progress Notes Filed: 2023 11:54 AM Note Text: STAMP Patient Outreach Encounter The patient's chart has been reviewed and they have been found to need follow up regarding their Colorectal Cancer Screening The date of patient's last appointment with family medicine: 05/20/2023 The patient's next appointment is scheduled on: Visit date not found 3.The patient needs an appointment scheduled :No. I am routing the encounter to the net front end developer Yes I am sending a mychart note to the patient. No No coverage found. : the patient will be contacted to notify them they need a Colorectal Cancer Screen I have placed the following orders: Williams Rubin MD 2023 11:51 [facility]12-14-2023 NoteHNO ID: [id number] Author: Jeanie Murphy RN Service: ? Author Type: Registered Nurse Type: Progress Notes Filed: 06/27/2023 1:35 PM Note Text: PRIMARY CARE COORDINATION QUICK NOTE Provider Action/FYI Patient identified by name and date . PCC tried to contact patient for patient outreach. PCC left phone number [phone] for patient to contact PCC. Jeanie Murphy RN June 27, 2023 1:34 [facility]12-14-2023 History of Present illness Narrative* Jeanie Murphy RN - 06/27/2023 1:34 PM EST PRIMARY CARE COORDINATION QUICK NOTE Provider Action/FYI Patient identified by name and date . PCC tried to contact patient for patient outreach. PCC left phone number [phone] for patient to contact PCC. Jeanie Murphy RN June 27, 2023 1:34 PM documented in this encounterAdena [facility]ayette [facility]12-14-2023 NotePatient Outreach (AGA) MICHELLE JULES ([id number]) 1965 F Date Time Provider Department 06/27/23 JEANIE MURPHY [facility] During your visit today, we recorded the following information about you: Jeanie Murphy RN 06/27/2023 1:35 PM Signed PRIMARY CARE COORDINATION QUICK NOTE Provider Action/FYI Patient identified by name and date . PCC tried to contact patient for patient outreach. PCC left phone number [phone] for patient to contact PCC. Jeanie Murphy RN June 27, 2023 1:34 PM Allergies As of Date: 06/27/2023 Noted Allergy Reaction ADHESIVE TAPE (ROSINS) 03/27/2006 9 - Itching LATEX, NATURAL RUBBER 09/09/2018 2 - Rash METFORMIN 07/22/2018 14 - Other: See Comments Comments: Caused arrhythmia issues SEASONAL ALLERGIES 03/01/2023 9 - Itching SIMVASTATIN 11/04/2012 14 - Other: See Comments Comments: myalgia Date Reviewed: 05/20/2023 Reviewed by: Abiodun, Lilli, COLD STRIP ROLLER - Fully Assessed Reason for Visit: Flux Tube Attendant Chronic Care [3092] Cmt: Attempted PCC follow up Prescriptions as of 06/27/2023 - liraglutide (VICTOZA) 0.6 mg/ 0.1 ml subcutaneous pen injector Inject 1.2 mg subcutaneously once daily. - insulin glargine (BASAGLAR KWIKPEN U-100 INSULIN) 100 unit/mL (3 mL) Inject 45 Units subcutaneously two times a day. - insulin lispro (HUMALOG KWIKPEN) 100 unit/mL INJECT 8 UNITS SUBCUTANEOUSLY THREE TIMES A DAY BEFORE MEALS - gabapentin (NEURONTIN) 300 mg capsule Take 1 capsule by mouth daily at bedtime for 270 days. - flash glucose sensor (FREESTYLE LANCE 2 SENSOR) kit Use to check blood sugar before meals and at bedtime - insulin needles, DISPOSABLE, (PEN NEEDLE) 31 gauge x 5/16 Use one needle per dose. 1 per day. - Docusate Sodium (STOOL SOFTENER) 100 mg tab Take 1 capsule by mouth twice daily as needed - ergocalciferol 50,000 unit capsule (VITAMIN D2, DRISDOL) Take 1 capsule by mouth one time a week. - DULoxetine (CYMBALTA) 60 mg capsule Take 1 capsule by mouth once daily. - acetylcyst/eodbmbT53/levomefol (METAFOLBIC PLUS ORAL) Take by mouth. - glyBURIDE 5 mg tablet Take 1 tablet by mouth daily with breakfast. - oxybutynin ER (DITROPAN XL) 15 mg 24 hr Extended Rel Tab Take 1 tablet by mouth once daily. - pantoprazole DR (PROTONIX) 40 mg tablet Take 1 tablet by mouth twice daily. - furosemide (LASIX) 40 mg tablet Take 1 tablet by mouth once daily. - cetirizine (ZYRTEC) 10 mg tablet Take 1 tablet by mouth once daily as needed (for itching, sneezing or runny nose). - losartan (COZAAR) 25 mg tablet (Discontinued) Take 1 tablet by mouth once daily. - Pramipexole 0.75 mg tablet Take 1 tablet by mouth daily at bedtime. - blood sugar diagnostic ([place] ULTRA TEST) test strip USE TO TEST BLOOD SUGAR THREE TIMES A DAY - aspirin, enteric coated (ECOTRIN LOW STRENGTH) 81 mg EC tablet Take 1 tablet by mouth once daily. - atorvastatin (LIPITOR) 10 mg tablet Take 1 tablet by mouth once daily. - spironolactone (ALDACTONE) 25 mg tablet Take 1 tablet by mouth once daily. - carvedilol (COREG) 25 mg tablet Take 1 tablet by mouth twice daily. - magnesium oxide (MAG-OX) 400 mg (241.3 mg magnesium) tablet Take 1 tablet by mouth twice daily. 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.* Vitamin D deficiency [E55.9] Family history of colon cancer [Z80.0] Cardiomyopathy, nonischemic (HCC) [I42.8] 04/14/2013 Abnormality of gait [R26.9] 05/04/2014 Ganglion cyst of right foot [M67.471] 09/09/2015 Biventricular ICD (implantable cardioverter-def*10/10/2015 Uncontrolled type 2 diabetes mellitus with diab*12/21/2015 Restless leg syndrome [G25.81] 02/09/2016 Peroneal tendinitis [M76.70] 07/12/2016 Pain in joint, ankle and foot [M25.579] 07/12/2016 Nonallergic rhinitis [J31.0] 04/03/2018 Cystocele with prolapse [N81.4] 11/12/2018 Urgency of urination [R39.15] 11/12/2018 Mixed incontinence [N39.46] 11/12/2018 Obesity, Class II, BMI 35-39.9 [E66.9] 01/22/2023 Hyperlipidemia, mixed [E78.2] 05/20/2023 Encounter Status:Closed by JEAINE MURPHY on 06/27/23[facility] 06-26-2023 Miscellaneous Notes* Telephone Encounter - Faisal Patel - 06/26/2023 1:43 PM EST I called the pt and gave her a number to financial clearance to see if they will approve her financial clearance that I placed so she can keep her appt. Pt said she will reach out this week and let me know what they say. Faisal Patel * Telephone Encounter - Williams Rubin MD - 06/26/2023 10:26 AM EST GLP-1 Pen Question Michelle Jules called to ask if she can use her mother's extra unused and unopened Trulicity pens(her mother has 3 extra boxes that in 2023). She used her last 1.2 mg dose of Victoza this week. Her insurance will not restart until July 15, 2023 and she has worked with child protective services social worker and patient outreach to get financial assistance for her insulin. She states she is not able to affordthe $25 for her insulin and has no means to buy insulin or the Victoza pen. We decided that using the on packaged and unused brand-new Trulicity pen during this month until July 15 is the best option. Since she is on 1.2 mg of Victoza she will start with 0.75 mg of Trulicity. We will monitor her sugars, and if they are still high after a week on 0.75 mg of the Trulicity, we will increase to 1.5mg on the second week of using Trulicity. -Her fasting glucose today was 199, the lowest reading she has had and first reading below 300 thatshe has had in months. She denied any dizziness, diaphoresis, shakiness, tremors, lightheadedness, or passing out. She states that she is feeling well and would like to continue to keep her sugars under control. She stated that she has enough insulin to get through the month as she will use extra insulin that her mother has that is not .. Appointment with Dr. Cr -She is not able to make her appointment with Dr. Cr on 07/03/2023 because she will not have insurance coverage for this visit. She says she would like to reschedule to see Dr. Cr in July. I will contact Dr. Cr to let her know and will let our net front end developer know as well. Vaccines -She received her COVID booster this week and I documented this in the chart. documented in this encounterAdena Fayette [facility] Center12-07-2023 Miscellaneous Notes* Telephone Encounter - Maria A Purvis LPN - 06/20/2023 3:46 PM EST Prior authorization for Carlos kwikpen 100unit/ml has been submitted via [employer]. Awaiting determination. documented in this encounterAdena Fayette Medical Center12-06-2023 NoteHNO ID: [id number] Author: Sonia Cr RPh Service: ? Author Type: Pharmacist Type: Progress Notes Filed: 06/19/2023 10:18 AM Note Text: Unfortunately, this is the least expensive option for insulin if no insurance at this time. Other programs have insulin cost ~$100. Forwarding to to see if she can contact patient regarding PAP for basaglar - patient would qualify because she is without insurance. Likely will also meet financial cut offs. Sonia Cr [facility]12-06-2023 History of Present illness Narrative* Sonia Cr RPh - 06/19/2023 10:17 AM EST Unfortunately, this is the least expensive option for insulin if no insurance at this time. Other programs have insulin cost ~$100. Forwarding to to see if she can contact patient regarding PAP for basaglar - patient would qualify because she is without insurance. Likely will also meet financialcut offs. Sonia Cr RPh * Jeanie Murphy RN - 06/18/2023 3:47 PM EST AG PRIMARY CARE COORDINATION FOLLOW-UP NOTE Provider Action/FYI: Patient identified by name and date of : YES Spoke to: patient Summary: PCC contacted patient for PCC follow up. I spoke to patient about the changes to her insulin. Patient said she currently will not be able toget anymore insulin. Patient said she has Humalog and Victoza at home, but is out of the basaglar. Patient said her insurance ran out and will not start back up until the new year so she can not get anymore insulin at this time. PCC asked patient if she could afford $25 for [employer] brand of insulinand patient said she could not. Patient said she will use victoza and humalog as prescribed. Patient thinks she has enough to last her until the new year. PCC contacted [employer] to confirm patient couldnot get insulin and they confirmed that the medication was coming up as Not Eligible for Date of Service. PCC contacted [employer] to make sure there was no errors in patient's coverage and [employer] confirmed patient's insurance was terminated on 06/13 2023. The reference number for thiscall was [id number]. Patient aware she has Pharm D appointment on 07/03/2023 PCC instructed patient to call [phone] with any questions or concerns. Health leads screening tool questions performed? No N/A Concerns: Goals: Active Goals - Current status as of 06/18/2023 at 3:48 PM Most Recent Blood Pressure < 130/80 127/76 (05/20/2023) Confirm medication adherence of all prescribed medications and uses them correctly Hemoglobin A1C < 7 6.8 (02/23/2019) LDL at or below 100 mg/dL or on a high statin Health Maintenance Topics with due status: Overdue Topic Date Due Hepatitis B Vaccine Never done Mammogram Screening 12/03/2018 Colorectal Cancer Screening 09/27/2021 Covid-19 Vaccine 03/15/2023 Pbx Installer plan for next outreach: Will follow-up 1 week Signature: Jeanie Murphy RN June 18, 2023 documented in this encounterAdena Fayette [facility] Center12-05-2023 NoteHNO ID: [id number] Author: Jeanie Murphy RN Service: ? Author Type: Registered Nurse Type: Progress Notes Filed: 06/19/2023 10:18 AM Note Text: AG PRIMARY CARE COORDINATION FOLLOW-UP NOTE Provider Action/FYI: Patient identified by name and date of : YES Spoke to: patient Summary: PCC contacted patient for PCC follow up. I spoke to patient about the changes to her insulin. Patient said she currently will not be able to get anymore insulin. Patient said she has Humalog and Victoza at home, but is out of the basaglar. Patient said her insurance ran out and will not start back up until the new year so she can not get anymore insulin at this time. PCC asked patient if she could afford $25 for [employer] brand of insulin and patient said she could not. Patient said she will use victoza and humalog as prescribed. Patient thinks she has enough to last her until the new year. PCC contacted [place] to confirm patient could not get insulin and they confirmed that the medication was coming up as Not Eligible for Date of Service. PCC contacted [employer] to make sure there was no errors in patient's coverage and [employer] confirmed patient's insurance was terminated on 06/13 2023. The reference number for this call was [id number]. Patient aware she has Pharm D appointment on 07/03/2023 PCC instructed patient to call [phone] with any questions or concerns. Health leads screening tool questions performed? No N/A Concerns: Goals: Active Goals - Current status as of 06/18/2023 at 3:48 PM Most Recent Blood Pressure < 130/80 127/76 (05/20/2023) Confirm medication adherence of all prescribed medications and uses them correctly Hemoglobin A1C < 7 6.8 (02/23/2019) LDL at or below 100 mg/dL or on a high statin Health Maintenance Topics with due status: Overdue Topic Date Due Hepatitis B Vaccine Never done Mammogram Screening 12/03/2018 Colorectal Cancer Screening 09/27/2021 Covid-19 Vaccine 03/15/2023 Pbx Installer plan for next outreach: Will follow-up 1 week Signature: [facility] RN [facility] 18[facility]12-[facility] Miscellaneous Notes* Telephone Encounter - Maria A Martinez - 06/18/2023 10:48 AM EST Patient rescheduled for 07/03/23 with Willis Espinoza * Telephone Encounter - Maria A Martinez - 06/18/2023 10:40 AM EST ----- Message from Delia Bright sent at 06/18/2023 10:09 AM EST ----- [address] [place] [address]/FAMP ACC/[facility] Ag/Patient wants to schedule an appointment Subject Line Format: Medicine / Homar Vasques MD / [Issue] Select Department Name For Pool Routing Assistance: FAMP AG ACC [facility] => AG FAMP ACC [facility] APPT CTR TRIAGE POOL [[id number]] Patient: Michelle Jules Date of : 1965 Primary Care Provider: Homar Vasques MD The reason I am contacting the office is: Restricted Scheduling - Patient is requesting a call backfrom [facility] to schedule an appointment - follow up after 4 weeks. Patient missed their appt on 05/01/23 and they would like to reschedule. Please get in touch with them. Thank you! Person calling if other than patient: N/A Best contact number: [phone] Thank you, Delia Bright June 18, 2023 10:09 AM documented in this encounterAdena Fayette Medical Center12-05-2023 NotePatient Outreach (AGACM) MICHELLE JULES ([id number]) 1965 F Date Time Provider Department 06/18/23 JEANIE MURPHY During your visit today, we recorded the following information about you: Jeanie Murphy RN 06/19/2023 10:18 AM Signed PRIMARY CARE COORDINATION FOLLOW-UP NOTE Provider Action/FYI: Patient identified by name and date of : YES Spoke to: patient Summary: PCC contacted patient for PCC follow up. I spoke to patient about the changes to her insulin. Patient said she currently will not be able to get anymore insulin. Patient said she has Humalog and Victoza at home, but is out of the basaglar. Patient said her insurance ran out and will not start back up until the new year so she can not get anymore insulin at this time. PCC asked patient if she could afford $25 for [employer] brand of insulin and patient said she could not. Patient said she will use victoza and humalog as prescribed. Patient thinks she has enough to last her until the new year. PCC contacted [facility] to confirm patient could not get insulin and they confirmed that the medication was coming up as Not Eligible for Date of Service. PCC contacted [employer] to make sure there was no errors in patient's coverage and [employer] confirmed patient's insurance was terminated on 06/13 2023. The reference number for this call was [id number]. Patient aware she has Pharm D appointment on 07/03/2023 PCC instructed patient to call [phone] with any questions or concerns. Health leads screening tool questions performed? No N/A Concerns: Goals: Active Goals - Current status as of 06/18/2023 at 3:48 PM Most Recent Blood Pressure < 130/80 127/76 (05/20/2023) Confirm medication adherence of all prescribed medications and uses them correctly Hemoglobin A1C < 7 6.8 (02/23/2019) LDL at or below 100 mg/dL or on a high statin Health Maintenance Topics with due status: Overdue Topic Date Due Hepatitis B Vaccine Never done Mammogram Screening 12/03/2018 Colorectal Cancer Screening 09/27/2021 Covid-19 Vaccine 03/15/2023 Pbx Installer plan for next outreach: Will follow-up 1 week Signature: Jeanie Murphy RN June 18, 2023 Sonia Cr [facility] 06/19/2023 10:18 AM Signed Unfortunately, this is the least expensive option for insulin if no insurance at this time. Other programs have insulin cost ~$100. Forwarding to to see if she can contact patient regarding PAP for basaglar - patient would qualify because she is without insurance. Likely will also meet financial cut offs. Sonia Cr [facility] Allergies As of Date: 06/18/2023 Noted Allergy Reaction ADHESIVE TAPE (ROSINS) 03/27/2006 9 - Itching LATEX, NATURAL RUBBER 09/09/2018 2 - Rash METFORMIN 07/22/2018 14 - Other: See Comments Comments: Caused arrhythmia issues SEASONAL ALLERGIES 03/01/2023 9 - Itching SIMVASTATIN 11/04/2012 14 - Other: See Comments Comments: myalgia Date Reviewed: 05/20/2023 Reviewed by: Lilli See LPN - Fully Assessed Reason for Visit: Flux Tube Attendant Chronic Care [4616] Cmt: [facility] follow up Prescriptions as of 06/19/2023 - insulin glargine (BASAGLAR KWIKPEN U-100 INSULIN) 100 unit/mL (3 mL) Inject 45 Units subcutaneously two times a day. - insulin lispro (HUMALOG KWIKPEN) 100 unit/mL INJECT 8 UNITS SUBCUTANEOUSLY THREE TIMES A DAY BEFORE MEALS - gabapentin (NEURONTIN) 300 mg capsule Take 1 capsule by mouth daily at bedtime for 270 days. - liraglutide (VICTOZA) 0.6 mg/ 0.1 ml subcutaneous pen injector Inject 0.6 mg subcutaneously once daily. - flash glucose sensor (FREESTYLE LANCE 2 SENSOR) kit Use to check blood sugar before meals and at bedtime - insulin needles, DISPOSABLE, (PEN NEEDLE) 31 gauge x 5/16 Use one needle per dose. 1 per day. - Docusate Sodium (STOOL SOFTENER) 100 mg tab Take 1 capsule by mouth twice daily as needed - ergocalciferol 50,000 unit capsule (VITAMIN D2, DRISDOL) Take 1 capsule by mouth one time a week. - DULoxetine (CYMBALTA) 60 mg capsule Take 1 capsule by mouth once daily. - acetylcyst/tgctiyQ99/levomefol (METAFOLBIC PLUS ORAL) Take by mouth. - glyBURIDE 5 mg tablet Take 1 tablet by mouth daily with breakfast. - oxybutynin ER (DITROPAN XL) 15 mg 24 hr Extended Rel Tab Take 1 tablet by mouth once daily. - pantoprazole DR (PROTONIX) 40 mg tablet Take 1 tablet by mouth twice daily. - furosemide (LASIX) 40 mg tablet Take 1 tablet by mouth once daily. - cetirizine (ZYRTEC) 10 mg tablet Take 1 tablet by mouth once daily as needed (for itching, sneezing or runny nose). - losartan (COZAAR) 25 mg tablet (Discontinued) Take 1 tablet by mouth once daily. - Pramipexole 0.75 mg tablet Take 1 tablet by mouth daily at bedtime. - blood sugar diagnostic ([employer] Coachworks[employer]OUCH ULTRA TEST) test strip USE TO TEST BLOOD SUGAR THREE TIMES A DAY - aspirin, enteric coated (ECOT (more content not included)...[facility]12-04-2023 Miscellaneous Notes* Telephone Encounter - Williams Rubin MD - 06/17/2023 5:46 PM ESTSummary: Persistant Hyperglycemia I called patient regarding fasting sugars staying at 300-400s She states: - She would like all meds sent to [facility] - Ran out of long acting insulin. Was taking 40 units, and I recommended taking the 45 units. She does not have enough to take it tonight - I refilled long and short acting insulin - I recommended Increasing Victoza pen to 1.2 units and to call back to let me know where her sugars are this next week - States her CGM tape is not holding - Will contact [facility] Pharmacist Dr. Cr for her recommendation of medication and CGM use. - Will contact Dr. Vasques for recommendation of her medication for glucose control as well. Williams Rubin MD documented in this encounterAdena Fayette Medical Center12-01-2023 Miscellaneous Notes* Telephone Encounter - Hossein Bagley LPN - 06/14/2023 12:22 PM EST Patient called in to report elevated blood sugars for about 3 weeks. States after victoza added sugars were stabilizing and are now back up in the 300-400 range daily. Patient has eliminated process foods, starchy veggies, has increased water and protein intake and is becoming frustrated. Patient denies any symptoms of infection at this time as well. Please advise documented in this encounterAdena Fayette Medical Center11-07-2023 Miscellaneous Notes* Telephone Encounter - Williams Rubin MD - 05/21/2023 8:53 PM EST Addressed during visit on 05/20/23. Williams Rubin MD * Telephone Encounter - Tamica Beatty LPN - 04/15/2023 2:25 PM EDT Pt calling and inquiring about her Ozempic DENIAL. Please advise. documented in this encounterAdena Fayette Medical Center11-07-2023 NoteHNO ID: [id number] Author: Jamie Graf DO Service: ? Author Type: Physician Type: Progress Notes Filed: 05/21/2023 4:27 PM Note Text: Attending Note This service has been performed in part by a resident under direction of a teaching physician. I discussed the case with the resident and agree with the resident's assessment and plan as documented. I confirm the jefferson elements of the history. I confirm the jefferson elements of the physical exam. I reviewed the findings with the resident and agree We determined medical decision making together. I have reviewed the documentation and agree with the assessment of: Type 2 diabetes mellitus with diabetic neuropathy, with long-term current use of insulin (hcc) (primary encounter diagnosis) Need for influenza vaccination See resident's note for furthur details. Jamie Graf, [facility]11-06-2023 NoteHNO ID: [id number] Author: Williams Rubin MD Service: ? Author Type: Resident Type: Progress Notes Filed: 05/21/2023 3:58 PM Note Text: [facility] [address] [place] [address] [facility] Center / [facility] [address] [place] [address] Visit Date: May 19, 2023 Name: Michelle Jules Date of : 1965 MRN/E #: [id number] Subjective Patient is a 57 year old year old female presenting in the office today with the following: Diabetes Mellitis Follow-up - Ozempic denied Coverage is provided when the member has a history of at least 120 days of therapy with THREE preferred (medication covered by the Plan) medications [ONE of the 120 day trials must be Byetta (5 mcg and 10 mcg) , Victoza (18 mg/3 ml pen) or Trulicity (0.75mg, 1.5 mg, 3 mg and 4.5 mg)], which include but are not limited to : Farxiga 5 and 10 mg, Invokana 100 mg and 300 mg, Victoza 18 mg/3 ml pen, and Jardiance 10 and 25 mg. Coverage is provided when the member has had an inadequate clinical response (the inability to reach A1C goal (<7%) (a test result that shows a three-month average of blood sugars) after at least 120 days of current regimen with documented adherence (taking medications correctly) and appropriate dose escalation. - Recently got diabetic eye exam and it resulted normal - A1c today was 12.5 in office - Wearing Lance; needs refill - Needs insulin needle refill DIABETES FOLLOW UP Type of Diabetes: Type 2 (NIDDM) Medical Issues / Complications: hypertension, hyperlipidemia, and peripheral neuropathy Patient is testing home BG 3-4 times per day: Yes Home readings in the <200 range. Patient's last HgbA1C: Hemoglobin A1C (%) Date Value 02/23/2019 6.8 11/12/2018 7.9 Hemoglobin A1C (POCT) (%) Date Value 05/20/2023 12.5 01/22/2023 14.7 Symptoms of Hyperglycemia : Polyuria Polydipsia Symptoms of Hypoglycemia: None - Banana once a day, cutting back on bread, pop corn, salads - Once/week exercising. Caregiver for [id number] Inadequate control of diabetes despite documented complaint with multiple medication adjustments: Yes Insulin Therapy: Yes Diabetes Medications: Orals AND Insulin How often is the patient administering insulin: 5 times a day Patient is able to adjust Insulin with a sliding scale: Yes Diabetes Management: Recommend patient have: Self foot care, Foot exam, Dilated eye exam, Hemoglobin A1c, Lipids, Urine microalbumin, and Hemaglobin A1C The 10-year ASCVD risk score (Brenda REBOLLEDO, et al., 2019) is: 6.8% Values used to calculate the score: Age: 57 years Sex: Female Is Non- : No Diabetic: Yes Tobacco smoker: No Systolic Blood Pressure: 127 mmHg Is BP treated: Yes HDL Cholesterol: 38 mg/dL Total Cholesterol: 177 mg/dL Health maintenance Hepatitis B Vaccine(1 of 3 - 3-dose series) Never done Mammogram Screening due on 12/03/2018 Colorectal Cancer Screening due on 09/27/2021 Covid-19 Vaccine() due on 03/15/2023 - Agreed to order Mammogram and Colonoscopy -ROS negative other than stated in HPI. -I have confirmed and edited as necessary the chief complaint, medications, past medical, family and social histories. Part of this note has been created using voice recognition software. It may contain errors which are inherent in voice-recognition technology. Objective Vital Signs BP 127/76 Pulse 69 Temp 36.1 ?C (97 ?F) (Temporal) Resp 18 Ht 5' 9 (1.753 m) Wt 242 lb 6.4 oz (110 kg) SpO2 95% BMI 35.80 kg/m? Last 3 Encounter BP Readings: Date: BP: 03/29/2023 134/77 03/15/2023 130/75 03/01/2023 132/72 Last 3 Encounter Wt Readings: Date: Wt: 04/03/2023 243 lb (110.2 kg) 03/29/2023 242 lb (109.8 kg) 03/15/2023 242 lb (109.8 kg) Physical Exam Physical Exam Vitals reviewed. Constitutional: General: She is not in acute distress. Appearance: Normal appearance. She is not ill-appearing. HENT: Head: Normocephalic and atraumatic. Nose: No congestion. Mouth/Throat: Mouth: Mucous membranes are moist. Eyes: Extraocular Movements: Extraocular movements intact. Cardiovascular: Rate and Rhythm: Normal rate and regular rhythm. Heart sounds: Normal heart sounds. No murmur heard. Pulmonary: Effort: Pulmonary effort is normal. No respiratory distress. Breath sounds: No wheezing, rhonchi or rales. Abdominal: General: There is no distension. Palpations: Abdomen is soft. There is no mass. Tenderness: There is no abdominal tenderness. There is no guarding. Hernia: No hernia is present. Musculoskeletal: Cervical back: Normal range of motion. Right lower leg: No edema. Left lower leg: No edema. Skin: General: Skin is warm. Capillary Refill: Capillary refill takes less than 2 seconds. Coloration: Skin is not jaundiced. Findings: No rash. Neurological: General: No focal de (more content not included)...[facility] 05-06-2023 Miscellaneous Notes* Telephone Encounter - Faisal Patel - 05/06/2023 4:01 PM EDT Called pt and message came up that the phone can not go through. Pt missed 05/01 pharm appt. Will send letter Faisal Patel documented in this encounterA[facility] Miscellaneous Notes* Telephone Encounter - Sonia Cr RPh - 05/01/2023 2:48 PM EDT Patient no showed to appt today. Unable to reach via telephone. See other note from pharmD. Letter to be sent. HbA1c ordered Hemoglobin A1C (POCT) Date Value Ref Range Status 01/22/2023 14.7 (A) 4.2 - 5.6 % Final Comment: Location:[facility] [place] [facility] [place], [place], [facility] Point of care (POC) Hemoglobin A1c (HGBA1C) testing is intended to assess glucose control and provide a management tool for patients known to have diabetes and their healthcare providers. Target HGBA1C levels may depend on specific clinical circumstances. POC HGBA1C is not intended for use as a diagnostic or screening test; laboratory-based testing should be used for diagnostic purposes. The following information is supplemental and may not be applicable to specific diabetes management situations: The POC device sas bi developer provides a normal range of 4.2% to 6.5% for the HGBA1C POC test. However, the [place] [employer] guidelines indicate that patients with HGBA1C in the range of 5.7% to 6.4% are at increased risk for development of diabetes and that intervention by lifestyle modification may be beneficial. A HGBA1C level greater than or equal to 6.5% is considered diagnostic of diabetes, pending confirmatory testing. Use of HGBA1C testing to evaluate glucose control may not be appropriate for patients with hemoglobin variants or other conditions (e.g. anemia) that alter red blood cell lifespan. ASSESSMENT/PLAN: 1. Type 2 diabetes mellitus with diabetic neuropathy, with long-term current use of insulin ([facility]) -ICD9: 250.60, 357.2, V58.67, ICD10: E11.40, Z79.4 - HGB A1C Sonia Cr RPh documented in this encounterAdena [facility]10-[facility] History of Present illness Narrative* Jeanie Murphy RN - 04/19/2023 11:27 AM EDT PRIMARY CARE COORDINATION QUICK NOTE Provider Action/FYI Patient identified by name and date . PCC attempted to contact patient. Phone number not working. PCC will attempt to contact patient again at a later date. Jeanie Murphy RN April 19, 2023 11:32 AM documented in this encounterAdena [facility]09-22-2023 History of Present illness Narrative* Williams Rubin MD - 04/05/2023 2:55 PM EDT Noted. Thank you! Williams Rubin * Jeanie Murphy RN - 04/05/2023 11:51 AM EDT Images from the original note were not included. PRIMARY CARE COORDINATION INTAKE Provider Action/FYI: Patient agreeable to care coordination. Patient would like advance directives and diabetic education to be sent to home. Jeanie Murphy RN April 05, 2023 12:26 PM Patient identified for Primary Care Coordination from: PCP Referral Active Goals - Current status as of 04/05/2023 at 12:13 PM Most Recent Blood Pressure < 130/80 134/77 (03/29/2023) Confirm medication adherence of all prescribed medications and uses them correctly Hemoglobin A1C < 7 6.8 (02/23/2019) LDL at or below 100 mg/dL or on a high statin Health Maintenance Topics with due status: Overdue Topic Date Due Hepatitis B Vaccine Never done BP Controlled (<130/80) Never done Mammogram Screening 12/03/2018 Colorectal Cancer Screening 09/27/2021 Covid-19 Vaccine 05/02/2022 Health Maintenance Topics with due status: Due On Topic Date Due Influenza Vaccine 03/15/2023 Care Coordination: General Care Coordination (since 01/05/2023) Patient has been identified by name and date of Yes Spoke to Patient Determined High Risk due to High Risk chronic condition Chronic High Risk conditions DM Assessment completed with Patient Living arrangement Family members Support system Friends; Family What is the health status of your caregiver? Fair Are there others that you care for? No Type of residence Private residence Home care services No Equipment used at home BP Monitor; Continuous Glucose Monitor; CPap; Other (Enter Comment) heart monitor Do you have any assistive devices to help you communicate? No Communication Barriers None Have you been in any hospital and/or ED outside the [facility] in the Past 6 months? No I am convinced of the importance of my prescription medication 0 I worry that my prescription medication will do more harm than good to me 0 I feel financially burdened by my out of pocket expenses for my prescription medication 0 Patient is categorized as Low Risk Experiencing side effects from current medications No Difficulty keeping appointments Yes Family aware of the patient's advance care planning wishes Yes Advance Directives discussion was initiated with the pt. The following actions were taken -- Mail to patient Health Literacy (since 01/05/2023) How often do you need to have someone help you when you read instructions, pamphlets, or other written material from your doctor or pharmacy? Sometimes How confident are you filling out medical forms by yourself? Somewhat If patient scores >3 on either question, the following interventions were put into place Use of plain language and active listening with patient and family; teach back methods employed to ensure comprehension; use concrete and specific phrases - avoid medical jargon; forms of communication used with patient and family; sit with patient; gave patient the opportunity to ask questions How best do you like to receive information? Verbal; Written; Video; Audio; Pictures Diet (since 01/05/2023) Diet: Diabetic diet Number of meals per day 3 Activities of Daily Living: Patients can perform the following activities without help: (since 01/05/2023) Dressing Yes Bathing Yes Doing laundry Yes Climbing a flight of stairs Yes Walking briskly No Instrumental activities of daily living (since 01/05/2023) Do you drive a car? Yes Do you need help from others to take care of things inside the house, for example: laundry, house cleaning, preparing meals? No Do you need help from others with errands outside the house, for example: shopping for groceries orclothes, going medical appointments? No Fall Risk: Fall Risk (since 01/05/2023) One or more falls in the last year: Yes Any near falls in the last year? No Advised to use a cane or walker to get around safely: No Feels unsteady when walking: No Steadies self on furniture while walking at home: No Worried about falling: Yes Needs to push with hands when rising from a chair: Yes Has trouble stepping up onto a curb: No Often has to harrell to the toilet: Yes Has lost some feeling in feet: No Takes medicine that makes him/her feel lightheaded or more tired than usual: Yes Takes medicine to sleep or improve mood: Yes Fall risk factors: Lightheadedness or dizziness with standing; Incontinence Jeanie Murphy RN documented in this encounterAdena [facility]09-20-2023 Miscellaneous Notes* Telephone Encounter - Maria A Purvis LPN - 04/03/2023 10:58 AM EDT Prior authorization for Ozempic 2 mg/ 3 mL pen has been submitted via [employer]. Awaiting determination. documented in this encounterAdena [facility]09-15-2023 Instructions* Patient Instructions* Jay Her DO - 03/29/2023 3:30 PM EDT -Increase to glargine 45 units in the morning and 45 units in the evening -STOP taking zoloft (sertraline), and START taking cymbalta (duloxetine) -STOP enalapril documented in this encounterAdena F[facility] Center09-15-2023 History of Present illness Narrative* Jay Her DO - 03/29/2023 2:39 PM EDT Images from the original note were not included. [facility] Medicine [address] [facility] [place] / [address] [place] [address] Visit Date: March 29, 2023 Name: Michelle Jules Date of : 1965 MRN/E #: [id number] Subjective Patient is a 57 year old year old female presenting in the office today with the following: Diabetes: -A1c goal: <7 -Current regimen: glargine 40units BID, lispo 8 units w/ meals -Denies symptoms of hypoglycemia (sweating, anxiety, palpitations, hunger, and tremor) -Denies symptoms of hyperglycemia (polyuria, polydipsia, polyphagia) -Overall feels much better Hemoglobin A1C (%) Date Value 02/23/2019 6.8 11/12/2018 7.9 Hemoglobin A1C (POCT) (%) Date Value 01/22/2023 14.7 The 10-year ASCVD risk score (Brenda REBOLLEDO, et al., 2019) is: 7.6% Values used to calculate the score: Age: 57 years Sex: Female Is Non- : No Diabetic: Yes Tobacco smoker: No Systolic Blood Pressure: 134 mmHg Is BP treated: Yes HDL Cholesterol: 38 mg/dL Total Cholesterol: 177 mg/dL Health maintenance Hepatitis B Vaccine(1 of 3 - 3-dose series) Never done BP Controlled (<130/80) Never done Dilated Retinal Exam due on 11/15/2018 Mammogram Screening due on 12/03/2018 Colorectal Cancer Screening due on 09/27/2021 Covid-19 Vaccine(5 - Moderna series) due on 05/02/2022 Depression Assessment Never done Influenza Vaccine(1) due on 03/15/2023 -ROS negative other than stated in HPI. -I have confirmed and edited as necessary the chief complaint, medications, past medical, family and social histories. Part of this note has been created using voice recognition software. It may contain errors which are inherent in voice-recognition technology. Objective Vital Signs BP 134/77 Ht 5' 9 (1.753 m) Wt 242 lb (109.8 kg) BMI 35.74 kg/m Last 3 Encounter BP Readings: Date: BP: 03/15/2023 130/75 03/01/2023 132/72 01/29/2023 132/77 Last 3 Encounter Wt Readings: Date: Wt: 03/15/2023 242 lb (109.8 kg) 03/01/2023 245 lb 3.2 oz (111.2 kg) 01/29/2023 243 lb (110.2 kg) Physical Exam Physical Exam Constitutional: General: She is not in acute distress. Appearance: Normal appearance. She is not ill-appearing. HENT: Head: Normocephalic and atraumatic. Mouth/Throat: Mouth: Mucous membranes are moist. Eyes: General: No scleral icterus. Extraocular Movements: Extraocular movements intact. Cardiovascular: Rate and Rhythm: Normal rate and regular rhythm. Pulses: Normal pulses. Heart sounds: Normal heart sounds. No murmur heard. Pulmonary: Effort: Pulmonary effort is normal. No respiratory distress. Breath sounds: Normal breath sounds. No wheezing, rhonchi or rales. Abdominal: General: There is no distension. Palpations: Abdomen is soft. Tenderness: There is no abdominal tenderness. There is no guarding. Musculoskeletal: Cervical back: No tenderness. Right lower leg: No edema. Left lower leg: No edema. Lymphadenopathy: Cervical: No cervical adenopathy. Skin: General: Skin is warm. Capillary Refill: Capillary refill takes less than 2 seconds. Coloration: Skin is not jaundiced. Findings: No bruising, erythema, lesion or rash. Neurological: General: No focal deficit present. Mental Status: She is alert and oriented to person, place, and time. Motor: No weakness. Deep Tendon Reflexes: Reflexes normal. Psychiatric: Mood and Affect: Mood normal. Behavior: Behavior normal. Thought Content: Thought content normal. ASSESSMENT/PLAN: 1. Type 2 diabetes mellitus with diabetic neuropathy, with long-term current use of insulin ([facility]) -ICD9: 250.60, 357.2, V58.67, ICD10: E11.40, Z79.4 - Uncontrolled. Increase glargine to 45 units in the morning, 45 units in the evening. Instructed to start taking pre-and post meal sugar readings to better dose mealtime insulin at future visits. She has not yet received her ozempic. Would consider trulicity or victoza if ozempic not available. Has appt with PharmD coming up for further counseling. -Stop zoloft, start cymbalta. Continue gabapentin in the evening for neuropathy. -Stop enalapril due to chronic dry cough. No Hx of microalbuminuria. Does have Hx of nonischemic cardiomyopathy and documented reduced EF on ECHO from 2012, S/p ICD placement per EP. She has since completely recovered her EF and recent ECHO was largely normal 03/20/2023. She was previously on losartan but this was discontinued for unknown reason. Recommend she be restarted on losartan 25mg and continue other GDMT. Consider addition of SGLT-2 once A1c <10. - INSULIN GLARGINE (U-100) 100 UNIT/ML (3 ML) SUBCUTANEOUS PEN - DULOXETINE 60 MG CAPSULE,DELAYED RELEASE 2. Depression -Switched zoloft to cymbalta to better address peripheral neuropathy. Jay Her DO Family Medicine, PGY-III [facility] documented in this encounterAdena [facility] Center09-12-2023 Miscellaneous Notes* Telephone Encounter - Faviola Saucedo LPN - 03/26/2023 10:54 AM EDT Pharmacy faxed requesting the following refill Refill(s) Requested: Requested Prescriptions Pending Prescriptions Disp Refills insulin glargine (BASAGLAR KWIKPEN U-100 INSULIN) 100 unit/mL (3 mL) 12 mL 1 Sig: Inject 40 Units subcutaneously twice daily. ALLERGIES Allergen Reactions Adhesive Tape (Natty* Itching Latex, Natural Rubb* Rash Metformin Other: See Comments Caused arrhythmia issues Seasonal Allergies Itching Simvastatin Other: See Comments myalgia (home) [phone] (work) Last Office Visit Date: 03/15/2023 Last [facility] Visit: Visit date not found Future Appointment: 03/29/2023 The patients preferred pharmacy has been captured for this encounter? yes Request is for script(s) to be escript to pharmacy. Faviola Saucedo LPN documented in this encounterAdena [facility] Center09-11-2023 History of Present illness Narrative* Williams Rubin MD - 03/25/2023 12:31 PM EDTSummary: Referral to [facility] Making referral to Dr. Cr [facility] for diabetes management. Diabetes is uncontrolled. Patienthas appointment with CF on 03/29/23. Williams Rubin MD documented in this encounterAdena [facility] Center09-01-2023 Nurse Note* Lilli See LPN - 03/15/2023 3:45 PM EDT Immunization History - pneumococcal (PCV20) vaccine, 20 valent (PREVNAR 20) (Given) - Date: 03/15/2023 - Lot #: [id number] - Dose: 0.5 mL - Site: Left deltoid - Supervisor Melt House: eCozyrashi - Given By: LILLI SEE - Expiration Date: 05/14/2024 Immunizations were given as ordered. Vaccination information sheet(s) given. Lilli See LPN documented in this encounterAdena Fayette [facility] Center09-01-2023 Instructions* Patient Instructions* Manny Evans MD - 03/15/2023 3:29 PM EDT Start taking gabapentin 300mg at bedtime Start taking Ozempic as prescribed Continue checking blood sugars Go to pharmacy and call to let us know if unable to access medications THE DASH DIFFERENCE High blood pressure affects 50 million Americans and is one of the leading causes or heart diseasedand stroke. The eating plan shown below, from the Dietary Approaches to Stop Hypertension (DASH) study, is good news for those affected by or at risk for high blood pressure. As reported in the [place] Journal of Medicine, the DASH diet, which is low in fat and rich in low-fat milk, cheese and yogurt, fruits and vegetables, lowered blood pressure in individuals with both normal and elevated blood pressure. The use of foods lower in sodium made a slight improvement in blood pressure beyond what occurred with the low-fat dairy products, fruits and vegetables. The study was based on a 2000 calorie diet and contained the number of servings from each of the food groups shown in the chart below. For many people following the DASH eating plan can be an important and easy step in preventing or managing high blood pressure. The DASH Eating Style FOOD GROUP DAILY SERVINGS 1 SERVING EQUALS Milk and Dairy 2-3 8 oz low-fat milk 1 cup low-fat 1 oz low-fat cheese Fruits 4-5 1 medium fruit cup dried fruit cup frozen or canned fruit 6 oz fruit juice Vegetables 4-5 1 cup raw leafy vegetables cup cooked vegetables 6 oz vegetable juice Grain 7-8 1 slice bread cup dry or hot cereal cup cooked rice or pasta Meat, fish, Poultry 2 or less 3 oz cooked meat, poultry, or fish Nuts, Seeds, Dried Beans 4-5 per week 1/3 cup nuts 2 tbsp seeds cup cooked dried beans Sample DASH Menu Breakfast 1 cup corn flakes (with 1 tsp sugar) 8 oz low-fat milk 1 banana 1 slice whole wheat toast 1 tbsp jelly grapefruit Lunch 2 oz sliced turkey 1 abhijit bread 1 tbsp low-fat mayonnaise cup fruit cocktail in light syrup Raw vegetable medley with: 3-4 sticks of each carrot and celery 2 radishes 2 loose leaf lettuce leaves Snack cup dried apricots cup mini pretzels 1/3 cup mixed nuts 1 cup flavored low-fat yogurt Dinner 3 oz grilled lean beef 1 cup scallion rice 1 cup steamed broccoli 8 oz low-fat chocolate milk Spinach salad with cup raw spinach 2 gavin tomatoes 2 cucumber slices 10 Ways to DASH Up Your Dining 1.) Re-think your drink! Make low-fat milk your beverage of choice: order it when dining out. 2.) Pizza, Pizza, Pizza! Combine a pre-made pizza crust with pizza sauce, shredded low-fat mozzarella and lots of vegetable toppings - fresh tomatoes, zucchini, spinach, carrot curls, cauliflower, broccoli and artichoke hearts - for a totally awesome creation. 3.) Start Your Day with whole grain cereal and low-fat milk. 4.) Make it with Milk! Use low-fat milk in place of water when cooking, especially with oatmeal, boxed rice and pasta dishes 5.) For That Snack Attack: Serve cereal with low-fat milk and fresh fruit. For a tangy twist, layerflavored low-fat yogurt with cereal to create yogurt sundaes. 6.) Make Super Soup! Prepare soup with low-fat milk instead of water. Add fresh, canned or frozen vegetables to prepared soups. 7.) Shake em Up! Create ethyl blender drinks. Start with a cup of low-fat milk, add frozen fruit chunks and flavoring to make your own smoothie drink. 8.) Creat a Baked Potato Bar! Serve baked potatoes with a variety of toppings like low-fat cheese, chili, refried beans, salsa or broccoli. Add them up - one meal could contain three or four vegetable servings! 9.) Encourage Big Dippers! Make a fruit dip by sprinkling cinnamon into vanilla low-fat yogurt. Fora quick vegetable dip, add ranch seasoning or chopped chives to plain low-fat yogurt. 10.) Say Cheese! Top Steamed vegetables with shredded low-fat cheese. documented in this encounterAdena [facility] Center09-01-2023 History of Present illness Narrative* Manny Evans MD - 03/15/2023 2:40 PM EDT Images from the original note were not included. [facility] / [address] [place], [place] [address] Visit Date: March 14, 2023 Name: Michelle Jules Date of : 1965 MRN/E #: [id number] Chief Complaint: No chief complaint on file. Subjective Michelle Jules is a 57 year old female here with the following complaint(s): HPI T2DM - on lantus 40U BID, 8U humalog TID, has been taking at home - did not tolerate metformin - unsure of other diabetes medications that she is taking - has been diabetic since 2002, 4-5 years on insulin - has bad neuropathy in LE - fasting sugar around 350, around mealtime in 400-450 - tried to access lance CGM but unable, will not give supplies for her - set up with pharmacist for CGM - difficult accessing medication - checks blood sugar twice per day Medication management - has not been able to access many of her medications due to mail service stating that physician has to send in ALLERGIES Allergen Reactions Adhesive Tape (Natty* Itching Latex, Natural Rubb* Rash Metformin Other: See Comments Caused arrhythmia issues Seasonal Allergies Itching Simvastatin Other: See Comments myalgia Current Outpatient Medications Medication Sig Docusate Sodium (STOOL SOFTENER) 100 mg tab Take by mouth. acetylcyst/[id number]/levomefol (METAFOLBIC PLUS ORAL) Take by mouth. Pramipexole 0.75 mg tablet Take 1 tablet by mouth daily at bedtime. (Patient taking differently: Take 1 mg by mouth daily at bedtime.) blood sugar diagnostic (Fisher CoachworksTOUCH ULTRA TEST) test strip USE TO TEST BLOOD SUGAR THREE TIMES A DAY aspirin, enteric coated (ECOTRIN LOW STRENGTH) 81 mg EC tablet Take 1 tablet by mouth once daily. atorvastatin (LIPITOR) 10 mg tablet Take 1 tablet by mouth once daily. spironolactone (ALDACTONE) 25 mg tablet Take 1 tablet by mouth once daily. carvedilol (COREG) 25 mg tablet Take 1 tablet by mouth twice daily. magnesium oxide (MAG-OX) 400 mg (241.3 mg magnesium) tablet Take 1 tablet by mouth twice daily. insulin lispro (ADMELOG SOLOSTAR U-100 INSULIN) 100 unit/mL Inject 8 Units subcutaneously three times daily before meals. flash glucose sensor (FREESTYLE LANCE 2 SENSOR) kit Use to check blood sugar before meals and at bedtime insulin glargine (BASAGLAR KWIKPEN U-100 INSULIN) 100 unit/mL (3 mL) Inject 40 Units subcutaneouslytwice daily. insulin needles, DISPOSABLE, (PEN NEEDLE) 31 gauge x 5/16 Use one needle per dose. 1 per day. flash glucose scanning reader (FREESTYLE LANCE 2 READER) Use to check glucose before meals and at bedtime. Blood-Glucose Meter (ICVRxUCH ULTRA2) monitoring kit 1 Each as needed. triamcinolone acetonide (KENALOG) 0.1 % ointment APPLY TO AFFECTED AREA(S) ON LEGS TWICE A DAY NEEDED *USE 2 WEEKS ON, 1 WEEK OFF *NOT FOR FACE, ARMPITS Lancets lancets Test blood sugar(s) 3 times daily. Blood-Glucose Meter (FREESTYLE SYSTEM KIT) monitoring kit 1 Each as needed. Insulin Syringe-Needle U-100 (INSULIN SYRINGE) 1/2 mL 30 x 5/16 syrg Use 1 syringe for each dose 1/day sertraline (ZOLOFT) 100 mg tablet Take 1 tablet by mouth once daily. glyBURIDE 5 mg tablet Take 1 tablet by mouth daily with breakfast. losartan (COZAAR) 25 mg tablet Take 1 tablet by mouth once daily. oxybutynin ER (DITROPAN XL) 15 mg 24 hr Extended Rel Tab Take 1 tablet by mouth once daily. potassium chloride ER (KLOR-CON) 20 mEq tablet Take 1 tablet by mouth every afternoon. pantoprazole DR (PROTONIX) 40 mg tablet Take 1 tablet by mouth twice daily. furosemide (LASIX) 40 mg tablet Take 1 tablet by mouth once daily. fexofenadine (BETINA) 180 mg tablet Take 1 tablet by mouth once daily. cetirizine (ZYRTEC) 10 mg tablet Take 1 tablet by mouth once daily as needed (for itching, sneezingor runny nose). semaglutide (OZEMPIC) 0.25 mg or 0.5 mg (2 mg/3 mL) pen Inject 0.25 mg subcutaneously one time a week for 28 days, THEN 0.5 mg one time a week for 14 days. [START ON 04/25/2023] semaglutide (OZEMPIC) 0.25 mg or 0.5 mg (2 mg/3 mL) pen Inject 0.5 mg subcutaneously one time a week. gabapentin (NEURONTIN) 300 mg capsule Take 1 capsule by mouth daily at bedtime for 90 days. enalapril (VASOTEC) 2.5 mg tablet Take 1 tablet by mouth once daily. mirabegron (MYRBETRIQ) 50 mg Tb24 Take 1 tablet by mouth once daily. ergocalciferol, vitamin D2, (DRISDOL) 50,000 unit capsule Take 1 capsule by mouth once each week. sertraline (ZOLOFT) 50 mg tablet Take 1 tablet by mouth once daily. Take 1/2 tab once a day orally for one week then 1 tab once a day dexamethasone sodium phosphate (DECADRON) 4 mg/mL injection 4 mg as needed (for physical therapy). Current Facility-Administered Medications Medication Dose Route Frequency perflutren lipid microspheres 1.3 mL in NaCl (PF) 0.9% 10 mL injection (DEFINITY) INTRAVENOUS DIRECTED PRN sodium chloride 0.9 % (flush) 10 mL (BD POSIFLUSH) 10 mL INTRAVENOUS DIRECTED PRN I have confirmed and edited as necessary the chief complaint, medications, past medical, family andsocial histories. Objective 03/15/23 1409 03/15/23 1543 BP: 145/82 130/75 Pulse: 60 65 Resp: 18 Temp: 36.4 C (97.6 F) TempSrc: Temporal SpO2: 97% Weight: 242 lb (109.8 kg) Height: 5' 9 (1.753 m) Body mass index is 35.74 kg/m . Physical Exam Constitutional: Appearance: Normal appearance. Cardiovascular: Rate and Rhythm: Normal rate and regular rhythm. Pulses: Normal pulses. Heart sounds: Normal heart sounds. Pulmonary: Effort: Pulmonary effort is normal. Breath sounds: Normal breath sounds. Musculoskeletal: Right lower leg: No edema. Left lower leg: No edema. Neurological: Mental Status: She is alert. Psychiatric: Mood and Affect: Mood normal. Behavior: Behavior normal. Results for orders placed or performed in visit on 01/25/23 CBC + DIFF Result Value Ref Range WBC 5.85 3.70 - 11.00 k/uL RBC 4.43 3.90 - 5.20 m/uL Hemoglobin 12.9 11.5 - 15.5 g/dL Hematocrit 38.3 36.0 - 46.0 % MCV 86.5 80.0 - 100.0 fL MCH 29.1 26.0 - 34.0 pg MCHC 33.7 30.5 - 36.0 g/dL RDW-CV 14.2 11.5 - 15.0 % Platelet Count 150 150 - 400 k/uL MPV 10.4 9.0 - 12.7 fL Neutrophils % 61.9 % Abs Neut 3.62 1.45 - 7.50 k/uL Lymphocytes % 28.2 % Abs Lymph 1.65 1.00 - 4.00 k/uL Monocytes % 7.4 % Abs [place] 0.43 <0.87 k/uL Eosinophils % 1.5 % Abs Eosin 0.09 <0.46 k/uL Basophils % 0.5 % Abs Baso 0.03 <0.11 k/uL Immature Granulocytes % 0.5 % Abs Immature Gran 0.03 <0.10 k/uL NRBC 0.0 /100 WBC Absolute nRBC <0.01 <0.01 k/uL Diff Type Auto COMP METABOLIC PANEL Result Value Ref Range Protein, Total 7.0 6.3 - 8.0 g/dL Albumin 4.0 3.9 - 4.9 g/dL Calcium, Total 9.4 8.5 - 10.2 mg/dL Bilirubin, Total 0.3 0.2 - 1.3 mg/dL Alkaline Phosphatase 205 (H) 34 - 123 U/L AST 16 13 - 35 U/L ALT 23 7 - 38 U/L Glucose 304 (H) 74 - 99 mg/dL BUN 13 7 - 21 mg/dL Creatinine 0.64 0.58 - 0.96 mg/dL Sodium 137 136 - 144 mmol/L Potassium 4.2 3.7 - 5.1 mmol/L Chloride 103 97 - 105 mmol/L CO2 25 22 - 30 mmol/L Anion Gap 9 9 - 18 mmol/L Estimated Glomerular Filtration Rate 104 >=60 mL/min/1.73m LIPID PANEL BASIC Result Value Ref Range Cholesterol, Total 177 <200 mg/dL Triglyceride 201 (H) <150 mg/dL HDL Cholesterol 38 (L) >39 mg/dL Non HDL Cholesterol 139 (H) <130 mg/dL Fasting Time 12 hrs VLDL Cholesterol 40 (H) <30 mg/dL TC:HDL Ratio 4.66 <5.10 LDL Cholesterol 99 <100 mg/dL LDL:HDL Ratio 2.61 (H) <2.54 MAGNESIUM BLD Result Value Ref Range Magnesium 1.9 1.7 - 2.3 mg/dL T4 FREE/FREE THYROX Result Value Ref Range Free T4 1.1 0.9 - 1.7 ng/dL TSH BLD Result Value Ref Range TSH 0.539 0.270 - 4.200 mIU/L HIV 1 2 COMBO(AG/AB),WITH REFLEX TO DIFFERENTIATION Result Value Ref Range HIV 12 Combo (Ag/Ab) Nonreactive Nonreactive HIV-1/2 AB (Confirmatory) HIV Interpretation ALBUMIN/CREAT RATIO RND UR Result Value Ref Range Creatinine, Ur Random (UCRR) 188.3 20.0 - 300.0 mg/dL Albumin, Urine Random 12.7 mg/L Albumin/Creat Ratio 7 <30 mg/g The 10-year ASCVD risk score (Brenda REBOLLEDO, et al., 2019) is: 7.3% Values used to calculate the score: Age: 57 years Sex: Female Is Non- : No Diabetic: Yes Tobacco smoker: No Systolic Blood Pressure: 132 mmHg Is BP treated: Yes HDL Cholesterol: 38 mg/dL Total Cholesterol: 177 mg/dL Assessment / Plan Michelle was seen today for diabetes and hypertension. Diagnoses and all orders for this visit: Type 2 diabetes mellitus with diabetic neuropathy, with long-term current use of insulin ([facility]) - poorly controlled, recent A1C 14.7 - recently seen by By Williams Rubin, increased insulin - patient interested in Ozempic - patient does not believe she was taking gabapentin, interested in neuropathic pain relief - glyBURIDE 5 mg tablet; Take 1 tablet by mouth daily with breakfast. - semaglutide (OZEMPIC) 0.25 mg or 0.5 mg (2 mg/3 mL) pen; Inject 0.25 mg subcutaneously one time aweek for 28 days, THEN 0.5 mg one time a week for 14 days. - semaglutide (OZEMPIC) 0.25 mg or 0.5 mg (2 mg/3 mL) pen; Inject 0.5 mg subcutaneously one time a week. - gabapentin (NEURONTIN) 300 mg capsule; Take 1 capsule by mouth daily at bedtime for 90 days. - CONSULT TO [facility]B PHARMACY CLINIC (PPG ONLY) -assist with CGM and insulin Medication management - multiple medications stated to not be sent to pharmacy despite recent orders - re-sent to mail-in pharmacy - told patient to call office if still not able to acquire Encounter for immunization - PNEUMOCOCCAL VACCINE (PREVNAR 20) - IMADM PRQ ID SUBQ/IM NJXS 1 VACC Discussed the above with the patient using shared decision-making. The patient is in agreement with the diagnostic and treatment plans. Return in about 2 weeks (around 03/29/2023) for DM2, HTN. Provider: Manny Evans MD Date: March 14, 2023 Time: 10:04 PM documented in this encounterAdena [facility]08-29-2023 Miscellaneous Notes* Telephone Encounter - Lilli See LPN - 03/12/2023 10:44 AM EDT Pharmacy faxed requesting the following refill Refill(s) Requested: Requested Prescriptions Pending Prescriptions Disp Refills Pramipexole 0.75 mg tablet 90 tablet 1 Sig: Take 1 tablet by mouth daily at bedtime. ALLERGIES Allergen Reactions Adhesive Tape (Natty* Itching Latex, Natural Rubb* Rash Metformin Other: See Comments Caused arrhythmia issues Seasonal Allergies Itching Simvastatin Other: See Comments myalgia (home) [phone] (work) Last Office Visit Date: 03/01/2023 Last [facility] Visit: Visit date not found Future Appointment: 03/15/2023 The patients preferred pharmacy has been captured for this encounter? yes Request is for script(s) to be escript to pharmacy. Lilli See LPN documented in this encounterAdena [facility]08-21-2023 Miscellaneous Notes* Telephone Encounter - Aby Bahena LPN - 03/04/2023 3:33 PM EDT Pharmacy called requesting the following refill Refill(s) Requested: Requested Prescriptions Pending Prescriptions Disp Refills blood sugar diagnostic (ONETOUCH ULTRA TEST) test strip 300 Strip 3 Sig: Use as instructed ALLERGIES Allergen Reactions Adhesive Tape (Natty* Itching Latex, Natural Rubb* Rash Metformin Other: See Comments Caused arrhythmia issues Seasonal Allergies Itching Simvastatin Other: See Comments myalgia (home) [phone] (work) Last Office Visit Date: 03/01/2023 Last [facility] Visit: Visit date not found Future Appointment: 03/15/2023 The patients preferred pharmacy has been captured for this encounter? not asked Request is for script(s) to be escript to pharmacy. Aby Bahena LPN documented in this encounterAdena [facility]08-18-2023 History of Present illness Narrative* Williams Rubin MD - 03/01/2023 2:20 PM EDT [facility] [address] [place] [address] [facility] [place] / [address] [place] [id number] Visit Date: March 01, 2023 Name: Michelle Jules Date of : 1965 MRN/E #: [id number] Subjective Patient is a 57 year old year old female with pmh DM2, hypertension, hypercholesterolemia, presenting in the office today for diabetes follow-up and medication refills. T2DM - A1c on 01/22/23 was 14.7 - Taking insulin lispro 8 units 3x daily and Insulin glargine 70 units daily - Her fasting sugars in the morning have been between 350-450s. - She does not think the insulin is working - Denied urinary symptoms, dizziness, vomiting, Chest pain, palpitations, and shortness of breath - She gets nauseous secondary to reflux, numbness and tingling in hands and feet, takes a stool softener for constipation, and gets headaches when in the sun - Does not tolerate Metformin - Was not able to Lance CGM, needs doctor to call pharmacy - Counseled her on high protein and fiber diet with vegetables and lean meats and low carbohydrate diet Ms. Jules stated has an appointment for eye doctor and colonoscopy in March. Is following withcardiology EP. She needs medication refill or her restless leg syndrome, hypertension, and cholesterol. The 10-year ASCVD risk score ([place] DK, et al., 2019) is: 7.3% Values used to calculate the score: Age: 57 years Sex: Female Is Non- : No Diabetic: Yes Tobacco smoker: No Systolic Blood Pressure: 132 mmHg Is BP treated: Yes HDL Cholesterol: 38 mg/dL Total Cholesterol: 177 mg/dL Health maintenance HEPATITIS B(1 of 3 - 3-dose series) Never done BP CONTROLLED (<130/80) Never done DTAP,TDAP,TD(1 - Tdap) Never done PNEUMOCOCCAL(2 - PCV) due on 03/21/2013 SHINGRIX VACCINE(1 of 2) Never done DIABETIC FOOT EXAM due on 10/23/2018 DILATED RETINAL EXAM due on 11/15/2018 MAMMOGRAM due on 12/03/2018 COLORECTAL CANCER SCREENING due on 09/27/2021 COVID-19 VACCINE(5 - Moderna series) due on 05/02/2022 DEPRESSION ASSESSMENT Never done -ROS negative other than stated in HPI. -I have confirmed and edited as necessary the chief complaint, medications, past medical, family and social histories. Part of this note has been created using voice recognition software. It may contain errors which are inherent in voice-recognition technology. Objective Vital Signs There were no vitals taken for this visit. Last 3 Encounter BP Readings: Date: BP: 01/29/2023 132/77 01/22/2023 121/70 03/31/2019 130/76 Last 3 Encounter Wt Readings: Date: Wt: 01/29/2023 243 lb (110.2 kg) 01/22/2023 245 lb (111.1 kg) 03/31/2019 237 lb 3.2 oz (107.6 kg) Physical Exam Physical Exam Vitals reviewed. Constitutional: General: She is not in acute distress. Appearance: Normal appearance. She is obese. She is not ill-appearing. HENT: Nose: No congestion. Mouth/Throat: Mouth: Mucous membranes are moist. Eyes: Extraocular Movements: Extraocular movements intact. Cardiovascular: Rate and Rhythm: Normal rate and regular rhythm. Heart sounds: Normal heart sounds. No murmur heard. Pulmonary: Effort: Pulmonary effort is normal. No respiratory distress. Breath sounds: No wheezing, rhonchi or rales. Abdominal: General: Bowel sounds are normal. There is no distension. Palpations: Abdomen is soft. There is no mass. Tenderness: There is no abdominal tenderness. There is no guarding. Hernia: No hernia is present. Musculoskeletal: Cervical back: Normal range of motion. Right lower leg: No edema. Left lower leg: No edema. Skin: General: Skin is warm. Capillary Refill: Capillary refill takes less than 2 seconds. Coloration: Skin is not jaundiced. Findings: No rash. Neurological: General: No focal deficit present. Mental Status: She is alert and oriented to person, place, and time. Psychiatric: Mood and Affect: Mood normal. Behavior: Behavior normal. Feet:Shoes and socks removed, Are you having foot pain: No, Sign of having previous spurs on heels,ulcers, calluses, normal distal pulses, trace DP distal pulses, sensitive to 10 gm monofilament, and vibratory perception normal Check pulses ASSESSMENT/PLAN: Patient is a 57 year old year old female with pmh DM2, hypertension, hypercholesterolemia, presenting in the office today for diabetes follow-up and medication refills. Ms. Pham has uncontrolled diabetes. Her insulin was adjusted, and we will follow-up with her in 2 weeks to consider adding Jardiance or Ozempic and adjusting insulin. Will ask patient about alogliptin in her medication list. We increased her insulin glargine by 10 units total and recommended she take 40 units at a time for better absorption of the insulin. She will continue taking 8 units insulin lispro three times a day before meals. Her blood pressure is controlled. Refilled her Spironolactone, enalapril, carvedilol, aspirin, and atorvastatin. She is following with EP for her ICD. She has appointments coming up for colonoscopy and eye exam in March. Pramipexole was reordered for her restless leg syndrome. 1. Type 2 diabetes mellitus with diabetic neuropathy, with long-term current use of insulin ([facility]) -ICD9: 250.60, 357.2, V58.67, ICD10: E11.40, Z79.4 (primary diagnosis) - Uncontrolled - Barriers to control: diet adherence and lack of exercise - Blood glucose monitoring on a three times daily schedule - Counseled on healthy diet and regular exercise - Discussed need for and benefit of weight loss. BMI 36.21 kg/(m^2) - Discussed diabetic education issues of diabetes complications and monitoring required and hypoglycemic/hyperglycemic symptoms - INSULIN LISPRO (U-100) 100 UNIT/ML SUBCUTANEOUS PEN - FREESTYLE LANCE 2 SENSOR KIT - WILL CALL PHARMACY - INSULIN GLARGINE (U-100) 100 UNIT/ML (3 ML) SUBCUTANEOUS PEN - INSULIN GLARGINE 40 UNITS BID - INSULIN LISPRO 8 UNITS 3X A DAY BEFORE MEALS - PEN NEEDLE, DIABETIC 31 GAUGE X 5/16 - ATORVASTATIN 10 MG TABLET 2. Essential hypertension, benign - ICD9: 401.1, ICD10: I10 - Controlled - Encouraged sodium restriction, DASH or Mediterranean diet - Recommend regular aerobic exercise - MAGNESIUM OXIDE 400 MG (241.3 MG MAGNESIUM) TABLET 3. Coronary artery disease involving koi heart without angina pectoris, unspecified vessel or lesion type - ICD9: 414.01, ICD10: I25.10 - ASPIRIN 81 MG TABLET,DELAYED RELEASE - SPIRONOLACTONE 25 MG TABLET - ENALAPRIL MALEATE 2.5 MG TABLET - CARVEDILOL 25 MG TABLET 4. Restless leg syndrome - ICD9: 333.94, ICD10: G25.81 - PRAMIPEXOLE 0.75 MG TABLET Williams Rubin MD Family Medicine, PGY-I [facility] documented in this encounterAdena [facility]07-18-2023 History of Present illness Narrative* Ronny Wheeler MD - 01/29/2023 3:00 PM EDT Images from the original note were not included. Heart [facility] V[facility] SECTION OF CARDIAC PACING and ELECTROPHYSIOLOGY OUTPATIENT VISIT DATE January 29, 2023 OUTPATIENT VISIT TYPE NEW PRIMARY CARE PHYSICIAN: Homar Vasques [address] [place] [address] REFERRING PHYSICIAN: No referring provider defined for this encounter. 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 Patient presents to reestablish device follow-up. He reports feeling well, has some degree of exertional dyspnea, denies palpitation, ICD shocks, dizziness, or syncope. He has notbeen seeing a physician for quite some time, and is now reestablishing follow-up with a primary care physician for hypertension and diabetes management. Her device has not been interrogated in approximately 3 years. ECG shows sinus bradycardia 57 bpm with ventricular pacing. PAST MEDICAL HISTORY Diagnosis Date Anxiety disorder in conditions classified elsewhere Arthritis left knee with spur Cardiomyopathy, nonischemic (HCC) 04/2013 Degenerative joint disease involving multiple joints shoulders, right knee Essential hypertension, benign Family history of colon cancer 5y screening cycle GERD (gastroesophageal reflux disease) History of placement of internal cardiac defibrillator 09/03/2013 Neuropathy 02/09/2016 Obesity, unspecified Pure hypercholesterolemia Restless leg syndrome 02/09/2016 Snoring Type II or unspecified type diabetes mellitus without mention of complication, not stated as uncontrolled Vitamin D deficiency MEDICATIONS: potassium chloride ER (KLOR-CON) 20 mEq tablet^Take 1 tablet by mouth every afternoon.^Disp: ^Rfl: Pramipexole 0.75 mg tablet^Take 1.3333 tablets by mouth daily at bedtime.^Disp: ^Rfl: insulin lispro (ADMELOG SOLOSTAR U-100 INSULIN) 100 unit/mL^Inject 8 Units subcutaneously three times daily before meals.^Disp: 18 mL^Rfl: [address] (PROTONIX) 40 mg tablet^Take 1 tablet by mouth twice daily.^Disp: 56 tablet^Rfl: 3 flash glucose scanning reader (FREESTYLE LANCE 2 READER)^Use to check glucose before meals and at bedtime.^Disp: 1 Each^Rfl: 0 flash glucose sensor (FREESTYLE LANCE 2 SENSOR) kit^Use to check blood sugar before meals and at bedtime^Disp: 4 Each^Rfl: 1 insulin glargine (BASAGLAR KWIKPEN U-100 INSULIN) 100 unit/mL (3 mL) inpn^Inject 70 Units subcutaneously every evening.^Disp: 7 Pen^Rfl: 2 sertraline (ZOLOFT) 100 mg tablet^Take 1 tablet by mouth once daily.^Disp: 90 tablet^Rfl: 1 mirabegron (MYRBETRIQ) 50 mg Tb24^Take 1 tablet by mouth once daily.^Disp: 30 tablet^Rfl: 5 ergocalciferol, vitamin D2, (DRISDOL) 50,000 unit capsule^Take 1 capsule by mouth once each week.^Disp: 12 capsule^Rfl: 3 aspirin, enteric coated (ECOTRIN LOW STRENGTH) 81 mg EC tablet^Take 1 tablet by mouth once daily.^Disp: 30 tablet^Rfl: 11 alogliptin (NESINA) 25 mg tab^Take 1 tablet by mouth once daily.^Disp: 30 tablet^Rfl: 11 spironolactone (ALDACTONE) 25 mg tablet^Take 1 tablet by mouth once daily.^Disp: 30 tablet^Rfl: 11 furosemide (LASIX) 40 mg tablet^Take 1 tablet by mouth once daily.^Disp: 30 tablet^Rfl: 11 enalapril (VASOTEC) 2.5 mg tablet^Take 1 tablet by mouth once daily.^Disp: 90 tablet^Rfl: 3 atorvastatin (LIPITOR) 10 mg tablet^Take 1 tablet by mouth once daily.^Disp: 30 tablet^Rfl: 11 magnesium oxide (MAG-OX) 400 mg (241.3 mg magnesium) tablet^Take 1 tablet by mouth twice daily.^Disp: 60 tablet^Rfl: 11 carvedilol (COREG) 25 mg tablet^Take 1 tablet by mouth twice daily.^Disp: 60 tablet^Rfl: 11 fexofenadine (BETINA) 180 mg tablet^Take 1 tablet by mouth once daily.^Disp: 30 tablet^Rfl: 10 cetirizine (ZYRTEC) 10 mg tablet^Take 1 tablet by mouth once daily as needed (for itching, sneezingor runny nose).^Disp: 30 tablet^Rfl: 11 Blood-Glucose Meter (ONETOUCH ULTRA2) monitoring kit^1 Each as needed.^Disp: ^Rfl: triamcinolone acetonide (KENALOG) 0.1 % ointment^APPLY TO AFFECTED AREA(S) ON LEGS TWICE A DAY NEEDED *USE 2 WEEKS ON, 1 WEEK OFF *NOT FOR FACE, ARMPITS^Disp: 80 g^Rfl: 0 ONETOUCH ULTRA TEST test strip^USE TO TEST BLOOD SUGAR THREE TIMES A DAY^Disp: 300 Strip^Rfl: 3 Lancets lancets^Test blood sugar(s) 3 times daily.^Disp: 300 Each^Rfl: 3 Blood-Glucose Meter (FREESTYLE SYSTEM KIT) monitoring kit^1 Each as needed.^Disp: 1 Each^Rfl: 0 Insulin Syringe-Needle U-100 (INSULIN SYRINGE) 1/2 mL 30 x 5/16 syrg^Use 1 syringe for each dose 1/day^Disp: 100 Syringe^Rfl: 11 insulin needles, DISPOSABLE, (PEN NEEDLE) 31 gauge x 5/16 ndle^Use one needle per dose. 1 per day.^Disp: 100 Each^Rfl: 11 sertraline (ZOLOFT) 50 mg tablet^Take 1 tablet by mouth once daily. Take 1/2 tab once a day orally for one week then 1 tab once a day^Disp: 90 tablet^Rfl: 3 dexamethasone sodium phosphate (DECADRON) 4 mg/mL injection^4 mg as needed (for physical therapy).^Disp: 40 mL^Rfl: 2 REVIEW OF SYSTEMS: Review of Systems Constitutional: Positive for fatigue. Negative for fever. HENT: Negative for hearing loss. Eyes: Negative for pain. Respiratory: Positive for shortness of breath. Negative for cough. Cardiovascular: Negative for chest pain, palpitations and leg swelling. Gastrointestinal: Negative for abdominal pain and blood in stool. Endocrine: Negative for cold intolerance. Genitourinary: Negative for hematuria. Musculoskeletal: Negative for back pain. Skin: Negative for pallor. Neurological: Negative for dizziness and syncope. Psychiatric/Behavioral: The patient is not nervous/anxious. PHYSICAL EXAMINATION: BP 132/77 (BP Site: Right Arm, BP Position: Sitting, BP Cuff Size: Large Adult) Pulse (!) 59 Resp 18 Ht 5' 9 (1.753 m) Wt 243 lb (110.2 kg) SpO2 95% BMI 35.88 kg/m BP w/Orthostatic Vitals Date and Time Orthostatic BP Orthostatic Pulse BP Pulse BP Position BP Site BP Cuff Size 01/29/23 1425 -- -- 132/77 59 Sitting Right Arm Large Adult Peak Flow Date and Time PF Resp 01/29/23 1425 -- 18 Physical Exam Constitutional: General: She is not in acute distress. Appearance: She is well-developed. She is obese. HENT: Head: Normocephalic and atraumatic. Eyes: General: No scleral icterus. Conjunctiva/sclera: Conjunctivae normal. Pupils: Pupils are equal, round, and reactive to light. Cardiovascular: Rate and Rhythm: Normal rate and regular rhythm. Pulmonary: Effort: No respiratory distress. Breath sounds: No stridor. No wheezing or rales. Abdominal: Tenderness: There is no abdominal tenderness. Skin: General: Skin is warm and dry. Findings: No rash. Neurological: Mental Status: She is alert and oriented to person, place, and time. Psychiatric: Mood and Affect: Mood normal. I have personally reviewed the Electrocardiogram Assessment PLAN AND RECOMMENDATIONS: ASSESSMENT/PLAN: 1. NICM (nonischemic cardiomyopathy) (HCC) - ICD9: 425.4, ICD10: I42.8 (primary diagnosis) -No recent testing, maintained on an BLAIRE inhibitor and beta-awilda, will arrange for an echocardiogram and decide whether referral to general cardiology service is appropriate. - ECHO - PERFLUTREN LIPID MICROSPHERES 1.1 MG/ML INJECTION IN NS 10 ML - SODIUM CHLORIDE 0.9 % (FLUSH) INJECTION SYRINGE - CONSULT TO DEVICE CLINIC () 2. Cardiac resynchronization therapy defibrillator (SCRUBBER SYSTEM ATTENDANT-D) in place - ICD9: V45.02, ICD10: Z95.810 -Last device interrogation 2019, we will arrange for initial evaluation at the device clinic and subsequent remote follow-up. 3. Primary hypertension - ICD9: 401.9, ICD10: I10 - Controlled - Continue current medications Ronny Wheeler MD CONTACT INFORMATION: Ronny Wheeler MD documented in this encounterAdena [facility]07-18-2023 Nurse Note* Trinity Arriaza MA - 01/29/2023 2:24 PM EDT Patient denies any cardiac issues or symptoms. documented in this encounterAdena [facility] Center2023 Miscellaneous Notes* Telephone Encounter - Isabel Newman - 01/24/2023 3:25 PM EDT Referral to Gastroenterology entered into the [facility] portal on 01/24/23. Confirmation number [id number]. documented in this encounterAden[facility]07-[facility] Instructions* Patient Instructions* Jay Her DO - 01/22/2023 2:39 PM EDT -Get labs done -Start mealtime insulin at 8 units for breakfast, lunch, and dinner -Check your blood sugars first thing in the morning and at all mealtimes. Write these numbers down and bring to next visit -Get records of your sleep study sent to us -Follow-up in 4-6 weeks documented in this encounterAdena [facility]07-11-2023 History of Present illness Narrative* Jay Her DO - 01/22/2023 2:00 PM EDT Images from the original note were not included. [facility] [address] [place] [address] [facility] [address] [place], [place] [address] Visit Date: January 22, 2023 Name: Michelle Jules Date of : 1965 MRN/E #: [id number] Subjective Patient is a 57 year old year old female presenting in the office today with the following: Here to establish care Moved ere from [place] to take care of family member T2DM -Last A1c on record from 09/01/2019 was 7.9 -Today A1c >14 -Taking glyburide 5mg daily, lantus 64 units -States she is supposed to be doing mealtime insulin but is not doing this because they never sent her any medications -Previously ordered freestyle lance but never obtained HTN -normotensive today -Taking aldactone 25mg, losartan 25mg, lipitor 10mg daily HFpEF s/p ICD placement -Cardiology- follows with EP -Coreg 25mg, lasix 40mg daily, [place] --supposed to wear CPAP at night -Has done PSG in the past year but does not have results The ASCVD Risk score (Brenda DK, et al., 2019) failed to calculate for the following reasons: Cannot find a previous HDL lab Cannot find a previous total cholesterol lab Health maintenance HEPATITIS B(1 of 3 - 3-dose series) Never done HIV SCREENING Never done DTAP,TDAP,TD(1 - Tdap) Never done PNEUMOCOCCAL(2 - PCV) due on 03/21/2013 SHINGRIX VACCINE(1 of 2) Never done DIABETIC FOOT EXAM due on 10/23/2018 DILATED RETINAL EXAM due on 11/15/2018 MAMMOGRAM due on 12/03/2018 LDL CHOLESTEROL due on 07/21/2019 URINE ALBUMIN:CREATININE RATIO due on 02/24/2020 COLORECTAL CANCER SCREENING due on 09/27/2021 COVID-19 VACCINE(5 - Moderna series) due on 05/02/2022 DEPRESSION ASSESSMENT Never done -ROS negative other than stated in HPI. -I have confirmed and edited as necessary the chief complaint, medications, past medical, family and social histories. Part of this note has been created using voice recognition software. It may contain errors which are inherent in voice-recognition technology. Objective Vital Signs BP 121/70 Temp 36.7 C (98 F) Wt 245 lb (111.1 kg) BMI 36.18 kg/m Last 3 Encounter BP Readings: Date: BP: 03/31/2019 130/76 02/23/2019 120/70 12/25/2018 114/68 Last 3 Encounter Wt Readings: Date: Wt: 03/31/2019 237 lb 3.2 oz (107.6 kg) 02/23/2019 240 lb (108.9 kg) 12/25/2018 234 lb (106.1 kg) Physical Exam Physical Exam Constitutional: General: She is not in acute distress. Appearance: Normal appearance. She is obese. She is not ill-appearing. HENT: Head: Normocephalic and atraumatic. Mouth/Throat: Mouth: Mucous membranes are moist. Eyes: General: No scleral icterus. Extraocular Movements: Extraocular movements intact. Cardiovascular: Rate and Rhythm: Normal rate and regular rhythm. Pulses: Normal pulses. Heart sounds: Normal heart sounds. No murmur heard. Pulmonary: Effort: Pulmonary effort is normal. No respiratory distress. Breath sounds: Normal breath sounds. No wheezing, rhonchi or rales. Abdominal: General: There is no distension. Palpations: Abdomen is soft. Tenderness: There is no abdominal tenderness. There is no guarding. Musculoskeletal: Cervical back: No tenderness. Right lower leg: No edema. Left lower leg: No edema. Lymphadenopathy: Cervical: No cervical adenopathy. Skin: General: Skin is warm. Capillary Refill: Capillary refill takes less than 2 seconds. Coloration: Skin is not jaundiced. Findings: No bruising, erythema, lesion or rash. Neurological: General: No focal deficit present. Mental Status: She is alert and oriented to person, place, and time. Motor: No weakness. Deep Tendon Reflexes: Reflexes normal. Psychiatric: Mood and Affect: Mood normal. Behavior: Behavior normal. Thought Content: Thought content normal. Assessment and Plan New patient with POC A1c >14. 1. Encounter to establish care with new doctor - ICD9: V65.8, ICD10: Z76.89 (primary diagnosis) 2. Type 2 diabetes mellitus with diabetic neuropathy, with long-term current use of insulin ([facility]) -ICD9: 250.60, 357.2, V58.67, ICD10: E11.40, Z79.4 - Uncontrolled - Restart mealtime insulin with lispro 02/19/0. Previously was on lispro 26units at mealtimes but has not been taking. - Patient willing to resume mealtime insulin and follow sugars closely. - Re-order freestyle lance to aid in compliance - Counseled on healthy diet and regular exercise - Discussed diabetic education issues of diabetes complications and monitoring required, hypoglycemic/hyperglycemic symptoms, and medication-specific side effects and monitoring - CBC + DIFF - COMP METABOLIC PANEL - LIPID PANEL BASIC - ALBUMIN/CREAT RATIO RND UR - INSULIN LISPRO (U-100) 100 UNIT/ML SUBCUTANEOUS PEN - FREESTYLE LANCE 2 READER - FREESTYLE LANCE 2 SENSOR KIT 3. Screening for HIV (human immunodeficiency virus) - ICD9: V73.89, ICD10: Z11.4 - HIV 1 2 COMBO(AG/AB),WITH REFLEX TO DIFFERENTIATION 4. Screening for diabetic retinopathy - ICD9: V80.2, ICD10: Z13.5 - CONSULT TO OPHTHALMOLOGY 5. Encounter for screening mammogram for breast cancer - ICD9: V76.12, ICD10: Z12.31 - SALEEM SCREENING 6. Colon cancer screening - ICD9: V76.51, ICD10: Z12.11 - CONSULT TO GASTROENTEROLOGY 7. Essential hypertension, benign - ICD9: 401.1, ICD10: I10 - Controlled - Continue current medications - Recommend home blood pressure monitoring, to bring results to next visit - Encouraged sodium restriction, DASH or Mediterranean diet - Recommend regular aerobic exercise - CBC + DIFF - COMP METABOLIC PANEL - LIPID PANEL BASIC - MAGNESIUM BLD 8. Family history of colon cancer - ICD9: V16.0, ICD10: Z80.0 - CONSULT TO GASTROENTEROLOGY 9. Obesity, Class II, BMI 35-39.9 - ICD9: 278.00, ICD10: E66.9 Weight increasing - Behavioral intervention - T4 FREE/FREE THYROX - TSH BLD 10. PAXTON (obstructive sleep apnea) - ICD9: 327.23, ICD10: G47.33 -Instructed her to do release of records from outside facility so we can have access to her results 11. Restless leg syndrome - ICD9: 333.94, ICD10: G25.81 -Med refill - PRAMIPEXOLE 0.75 MG TABLET 12. GERD without esophagitis - ICD9: 530.81, ICD10: K21.9 - Discussed lifestyle modifications including losing weight, limiting caffeine, no meals three hours before sleep, and head of bed elevation -Med refill - PANTOPRAZOLE 40 MG TABLET,DELAYED RELEASE Return in about 4 weeks (around 02/19/2023) for chronic care management, med rec. Jay Her DO Family Medicine, PGY-II [facility] * Georgette Ness LPN - 01/22/2023 1:57 PM EDT Unable to review medications, not sure which paper is up too date. Georgette Ness LPN documented in this encounterAdena [facility]07-11-2023 Miscellaneous Notes* Telephone Encounter - Maria Victoria Gage RN - 01/22/2023 11:43 AM EDT Spoke with patient and requested recent EP office visits and device interrogations to be faxed to our office for Dr. Wheeler to review prior to appointment on 01/29/23. Provided patient with fax number. Maria Victoria Gage RN * Telephone Encounter - Maria Victoria Gage RN - 01/22/2023 11:35 AM EDT Left message with mother Krista for patient to have patient contact our office regarding any recent medical records to be faxed to our office for upcoming appointment with Dr. Rojas. Patient hasnot edith seen by Dr. Wheeler since 2018. Maria Victoria Gage RN documented in this encounterAdena [facility]10-12-2022 [id number] [id number] PERSONAL HISTORY AND PHYSICAL : [id number] Signed Name: MICHELLE JULES MRUN: [id number] : 1965 Loc: [facility] Age / Sex: 56/ F Adm Status: REG RCR Adm Date:04/25/22 Room/Bed: PRIMARY CARE PHYSICIAN: Ha Avelar NP. REASON FOR CONSULTATION: Ulceration, right heel and ulceration, left 2nd toe. HISTORY OF PRESENT ILLNESS: The above-captioned [facility] of an ulceration on her right heel, as well an ulceration on her left 2nd toe. The patient states the wound on her right heel started approximately 2 months ago as a callus that split open. The patient states the wound on her left 2nd toe started about a week ago when she stubbed it. The patient does admit to having pain in her right heel as well as her left foot. States her pain is a 4/10 on the pain scale. She describes her pain as being intermittent, aching, burning. She denies any pus or malodor. She does admit to having some yellowish bloody drainage coming from the wounds. She denies any other open wounds or ulcerations. She denies any current muscle cramps. She denies any intermittent claudication or cramping-type sensation in her calf muscles with walking or exertion. She denies any rest pain or pain at night in her legs with sleep and with elevation. The patient states that she is moving [place] at the end of the month. The patient voices no other gross pedal complaints or concerns. Vital signs taken today with a temperature of 97.2 degrees, pulse rate of 78, respiration rate of 18, blood pressure 153/57, and pain intensity scale is a 4/10 on the pain scale. ALLERGIES: PATIENT ADMITS TO ALLERGIES TO ADHESIVES, CAUSING REDNESS; LATEX, CAUSING ITCHING; METFORMIN, CAUSING TACHYCARDIA AND SIMVASTATIN, CAUSING NAUSEA AND VOMITING. MEDICATIONS: Current medications include Ultram 50 mg every 4 hours as needed, Vistaril 25 mg daily, glyburide 5 mg daily, spironolactone 25 mg daily, Zoloft 100 mg daily, Mirapex 1 mg at night, Protonix 40 mg daily, oxybutynin 15 mg daily, meloxicam 7.5 mg twice daily, magnesium 400 mg twice daily, Lantus 60 units subcutaneously daily, insulin lispro 30 units subcutaneously daily, Neurontin 300 mg twice daily, Lasix 40 mg daily, fexofenadine 180 mg daily, vitamin D 50,000 units every week, vitamin B 500 mcg daily, Coreg 25 mg twice daily, baclofen 10 mg at night, Lipitor 10 mg daily, aspirin 81 mg daily, and alogliptin 25 mg daily. PAST MEDICAL HISTORY: Positive for diabetes mellitus, peripheral neuropathy, migraines, restless legs syndrome, glaucoma, coronary artery disease, cardiomyopathy, congestive heart failure, hypertension, heart arrhythmia, high cholesterol, bronchitis, sleep apnea, seasonal allergies, gastroesophageal reflux disorder, stomach ulcer, hemorrhoids, urinary tract infections, previous pregnancies, fibroids, osteoarthritis, hypothyroidism, chronic anemia, depression, anxiety, difficulty falling and staying asleep. FAMILY HISTORY: Positive for diabetes, hypertension, heart murmur, depression, anxiety, colorectal cancer, breast cancer, coronary artery disease, and polio. PAST SURGICAL HISTORY: Positive for right knee scope x2, bilateral heel surgery, hysterectomy, tubal ligation, oophorectomy, cystoscopy, appendectomy, colonoscopy, EGD, pacemaker placement, internal defibrillator, cardiac catheterization, stress test with some teeth extraction, bilateral eye surgery for glaucoma. SOCIAL HISTORY: The patient denies any tobacco use, alcohol use, or recreational drug use. REVIEW OF SYSTEMS: 10-point review of is systems negative except for History of Present Illness listed above. Patient does admit to some numbness and tingling in both feet. She denies any current nausea, vomiting, fever, chills, diarrhea, chest pain or calf tenderness. PHYSICAL EXAMINATION: Lower extremity examination reveals a 56-year-old female. She does present with her regional driver. She is awake, alert and oriented x3. Evaluation of ulcerations on both feet is found in general ulcer assessment in the patient's chart. The ulceration of right heel measures 0.5 x 6.0 x 0.1 cm. The ulceration left 2nd toe measures 0.3 x 0.5 x 0.1 cm. There is a small amount of serous and serosanguineous exudate coming from both ulcerations. There is noted to be a large amount hyperkeratotic tissue surrounding the ulceration of the right heel with hemorrhagic change, as well as thrombosed capillaries identified. There is pain with palpation, compression and with debridement of ulcerations of both feet. There is no exposed bone, tendon, or black eschar identified. There is no sinus tract tunneling or undermining noted. No other open wounds or ulcerations were identified. Dorsalis pedis and posterior tibial pulses noted to be palpable to barely palpable bila (more content not included)...[facility]09-26-2022 Instructions* Patient Instructions* Griselda Lopez RN - 04/09/2022 10:46 AM EDT Stop Furosemide (Lasix) Start Torsemide (Demadex) 40 mg twice a day No more than 2 gm sodium daily Follow 2 liter fluid restriction Monitor weight daily/log given. Bring to office appointment Complete labs couple days before appointment Follow up in 2 weeks documented in this [id number] History of Present illness Narrative* Milka Rodriguez MD - 04/09/2022 10:35 AM EDT Images from the original note were not included. [facility] Subjective Michelle Jules is a 56 y.o. female seen in the office today for Follow-up (6 mht FU non-ischemic cardiomyopathy/increased weight and edema per director case management Polina) HPI: HPI Michelle Jules is a 56 y.o. female with a past medical history of nonischemic cardiomyopathy (ICD) recovered EF, hyperlipidemia, hypertension, 2 diabetes, obesity, GERD, depression. She has had increasing peripheral edema. Her weight is up over 20 pounds. She has 3 pillow orthopnea which is new overthe last several months. She saw her PCP. She denies having any chest pain she has not received anytherapy from her defibrillator. She states she started weighing herself every day because she got ascale. She does eat lunch meat turkey and chicken twice a week. Echocardiogram on 08/31/2019 showed an ejection fraction of 45 to 50% with no regional wall motion abnormalities. Trace tricuspid valve regurgitation. She is up 10 kg from office appointment 6 months ago on 10/13/2021. Last device check on 01/29/2022: SCRUBBER SYSTEM ATTENDANT-D REMOTE Check Notes/Summary: STABLE DEVICE FUNCTION. CRTP: 100% NO EVENTS. Est. Battery/Charge Time: 7 years/10.7 seconds. Sensing, Thresholds, Impedances: Stable Presenting EGM: /BIVP AP: 7% CRTP: 100% Note: No events since Histories: History reviewed. No pertinent past medical history. Past Surgical History: Procedure Laterality Date CARDIAC CATHETERIZATION CARDIAC PACEMAKER PLACEMENT CAROTID STENT FOOT SURGERY Bone spur removed Family History Problem Relation Age of Onset Diabetes Mother Heart attack Mother Hyperlipidemia Mother Hypertension Mother Heart attack Father Hyperlipidemia Father Hypertension Sister Diabetes Maternal Grandmother Heart attack Maternal Grandmother Heart failure Maternal Grandmother Hyperlipidemia Maternal Grandmother Stroke Maternal Grandmother Social History Tobacco Use Smoking status: Never Smokeless tobacco: Never Vaping Use Vaping Use: Unknown Substance Use Topics Alcohol use: Not Currently Drug use: Never Patient's Medications New Prescriptions No medications on file Previous Medications ASPIRIN 81 MG EC TABLET Take 1 (one) tablet (81 mg total) by mouth daily . ATORVASTATIN (LIPITOR) 10 MG TABLET Take 1 (one) tablet (10 mg total) by mouth daily . CARVEDILOL (COREG) 25 MG TABLET Take 1 (one) tablet (25 mg total) by mouth 2 (two) times a day . FEXOFENADINE (BETINA) 180 MG TABLET Take 180 mg by mouth daily . FUROSEMIDE (LASIX) 40 MG TABLET Take 1 (one) tablet (40 mg total) by mouth daily . GLYBURIDE (DIABETA) 5 MG TABLET Take 5 mg by mouth daily with breakfast . HYDROXYZINE (ATARAX) 25 MG TABLET Take 25 mg by mouth daily . INSULIN GLARGINE (LANTUS) 100 UNIT/ML (3 ML) INPN Inject 70 Units under the skin nightly . INSULIN LISPRO 100 UNIT/ML INPN Inject under the skin . LOSARTAN (COZAAR) 25 MG TABLET Take 0.5 (one-half) tablet (12.5 mg total) by mouth daily . MAGNESIUM OXIDE (MAG-OX) 400 MG (241.3 MG MAGNESIUM) TABLET Take 1 (one) tablet (400 mg total) by mouth daily . OXYBUTYNIN (DITROPAN XL) 15 MG 24 HR TABLET Take 15 mg by mouth daily . PANTOPRAZOLE (PROTONIX) 40 MG TABLET Take 40 mg by mouth daily . POTASSIUM CHLORIDE SA (K-DUR,KLOR-CON) 20 MEQ TABLET Take 1 (one) tablet (20 mEq total) by mouth daily . PRAMIPEXOLE (MIRAPEX) 0.75 MG TABLET Take 0.75 mg by mouth nightly . PREGABALIN (LYRICA) 75 MG CAPSULE Take 1 (one) capsule (75 mg total) by mouth 2 (two) times a day . SERTRALINE (ZOLOFT) 100 MG TABLET Take 100 mg by mouth daily . SPIRONOLACTONE (ALDACTONE) 25 MG TABLET Take 1 (one) tablet (25 mg total) by mouth daily . Modified Medications No medications on file Discontinued Medications ERGOCALCIFEROL (ERGOCALCIFEROL) 1,250 MCG (50,000 UNIT) CAPSULE Take 50,000 Units by mouth once a week . GABAPENTIN (NEURONTIN) 300 MG CAPSULE Take 300 mg by mouth 2 (two) times a day . TRIAMCINOLONE (KENALOG) 0.1 % OINTMENT Allergies Allergen Reactions Latex Metformin Simvastatin Review of Systems Constitutional: Negative for diaphoresis, malaise/fatigue, weight gain and weight loss. HENT: Negative for hearing loss, nosebleeds and tinnitus. Eyes: Negative for blurred vision and visual disturbance. Cardiovascular: Positive for leg swelling. Negative for chest pain, claudication, cyanosis, dyspneaon exertion, irregular heartbeat, near-syncope, orthopnea, palpitations, paroxysmal nocturnal dyspnea and syncope. Respiratory: Positive for shortness of breath. Negative for hemoptysis and snoring. Endocrine: Negative for cold intolerance and heat intolerance. Hematologic/Lymphatic: Does not bruise/bleed easily. Skin: Negative for flushing, poor wound healing and rash. Musculoskeletal: Negative for back pain, muscle weakness and myalgias. Gastrointestinal: Negative for abdominal pain, change in bowel habit, melena, nausea and vomiting. Genitourinary: Negative for decreased libido and hematuria. Neurological: Negative for loss of balance and numbness. Psychiatric/Behavioral: Negative for memory loss. The patient is not nervous/anxious. Objective Physical Exam Vitals reviewed. Constitutional: Appearance: She is well-developed. Comments: obese HENT: Head: Normocephalic and atraumatic. Eyes: General: Lids are normal. Right eye: No discharge. Left eye: No discharge. Conjunctiva/sclera: Conjunctivae normal. Neck: Vascular: No carotid bruit or JVD. Cardiovascular: Rate and Rhythm: Normal rate and regular rhythm. Pulses: Normal pulses. Heart sounds: Normal heart sounds. No murmur heard. Comments: Positive JVD Pulmonary: Effort: Pulmonary effort is normal. No respiratory distress. Breath sounds: Normal breath sounds. No wheezing or rales. Abdominal: General: Bowel sounds are normal. Palpations: Abdomen is soft. There is no mass. Tenderness: There is no abdominal tenderness. Musculoskeletal: General: Normal range of motion. Skin: General: Skin is warm. Findings: No rash. Comments: 2+ bilateral lower extremity edema Neurological: Mental Status: She is alert and oriented to person, place, and time. Gait: Gait normal. Psychiatric: Behavior: Behavior normal. Vitals: BP (!) 151/75 (BP Location: Left arm, Patient Position: Sitting, BP Cuff Size: Adult) Pulse (!) 59 Ht 5' 9 Wt 113.9 kg (251 lb 3.2 oz) SpO2 95% BMI 37.10 kg/m Labs: 03/01/2022 TSH and vitamin D level within normal limits 02/06/2022 CMP within normal limits triglyceride 190 cholesterol 144 Assessment & Plan: Nonischemic cardiomyopathy (HCC) -Nonischemic cardiomyopathy, functional class II. Recovered ejection fraction 45 to 50% now. - Hypervolemic on exam. -Continue carvedilol, Aldactone and losartan at current doses. - Stop Lasix start Demadex 40 mg twice daily continue magnesium - Check BMP magnesium pro BNP prior to follow-up -Limit salt to less than 2 g a day fluid to 2 L a day and weight daily Benign essential HTN -Controlled, no changes. History of SCRUBBER SYSTEM ATTENDANT-D -Last device check in January she is paced 100% -No arrhythmias seen Obesity -Commend weight loss and exercise program Type 2 diabetes -Managed by PCP Dyslipidemia -Managed by PCP Other Tests Ordered: No orders of the defined types were placed in this encounter. Follow-Up Ordered: 2 weeks Milka Rodriguez MD [facility] [address] [place] [id number] * Krupa Hercules MA - 04/09/2022 10:29 AM EDT Review of Systems Constitutional: Negative for diaphoresis, malaise/fatigue, weight gain and weight loss. HENT: Negative for hearing loss, nosebleeds and tinnitus. Eyes: Negative for blurred vision and visual disturbance. Cardiovascular: Positive for leg swelling. Negative for chest pain, claudication, cyanosis, dyspneaon exertion, irregular heartbeat, near-syncope, orthopnea, palpitations, paroxysmal nocturnal dyspnea and syncope. Respiratory: Positive for shortness of breath. Negative for hemoptysis and snoring. Endocrine: Negative for cold intolerance and heat intolerance. Hematologic/Lymphatic: Does not bruise/bleed easily. Skin: Negative for flushing, poor wound healing and rash. Musculoskeletal: Negative for back pain, muscle weakness and myalgias. Gastrointestinal: Negative for abdominal pain, change in bowel habit, melena, nausea and vomiting. Genitourinary: Negative for decreased libido and hematuria. Neurological: Negative for loss of balance and numbness. Psychiatric/Behavioral: Negative for memory loss. The patient is not nervous/anxious. 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 limited to breakdown of skin Sly Nix, DP 04/03/2022 M79.671 Pain in right foot Sly Nix, DPM 04/03/2022 M79.672 Pain in left foot Sly Nix, DP 04/03/2022 B35.1 Tinea unguium Sly HernandezMiguelina best, DP 04/03/2022 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 mellitus with diabetic polyneuropathy Sly Nix, DPM 04/03/2022 I87.2 Venous insuffici ency (chronic) (peripheral) Sly De Santiago Boyd, DPM 04/03/2022 R60.0 Localized edema Sly Del Rio, DP 04/03/2022 Z68.37 Body mass index [BMI] 37.0-37.9, adult Sly DavidMiguelina Boyd DP 01/25/2022 G47.33 Obstructive slee p apnea (adult) (pediatric) Mateo Oseguera PA-C 01/25/2022 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 Mateo Oseguera PA-C 01/25/2022 I10 Essential (primary) hyperten corinne Mateo Oseguera PA-C 01/25/2022 Z68.36 Body mass index [BMI] 36.0-36.9, adult Mateo Oseguera PA-C 01/11/2022 M76.61 Achilles tendinitis, right l eg Sly DavidMiguelina Nix, DP 01/11/2022 M24.871 Other specific j oint derangements of right ankle, not elsewhere classified Sly HernandezMiguelina Boyd DPM 01/11/2022 M65.871 Other synovitis and tenosynovitis, right ankle and foot Sly HernandezMiguelina Nix DPM 01/11/2022 M25.571 Pain in right an kle and joints of right foot Sly HernandezMiguelina Nix, DPM 01/11/2022 I87.2 Venous insuffici ency (chronic) (peripheral) Sly DavidMiguelina Nix DPM 01/11/2022 R60.0 Localized edema Sly DavidMiguelina Del Rio, DPM 01/11/2022 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 mellitus with diabetic polyneuropathy Sly Nix, DP 12/12/2021 M24.871 Other specific j oint derangements of right ankle, not elsewhere classified Sly Nix, [facility] 12/12/2021 M76.61 Achilles tendinitis, right l eg Sly Nix, DPM 12/12/2021 M65.871 Other synovitis and tenosynovitis, right ankle and foot Sly Nix, DP 12/12/2021 M25.571 Pain in right an kle and joints of right foot Sly Nix, DPM 12/12/2021 I87.2 Venous insuffici ency (chronic) (peripheral) Sly Nix, DP 12/12/2021 R60.0 Localized edema Sly Del Rio, [facility] 12/12/2021 B35.1 Tinea unguium Sly De Santiago Aman best, [facility] 12/12/2021 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 mellitus with diabetic polyneuropathy Sly Nix, [facility] 11/23/2021 G47.33 Obstructive slee p apnea (adult) (pediatric) Vlad Alaniz MD, [facility], [facility] 11/23/2021 G47.10 Hypersomnia, unspecified Shanell Alaniz MD, [facility], [facility] 11/23/2021 R53.81 Other malaise Vlad Alaniz MD, [facility], [facility] 11/23/2021 R53.83 Other fatigue Vlad Alaniz MD, [facility], [facility] 11/23/2021 I10 Essential (primary) hyperten corinne Vlad Alaniz MD, [facility], [facility] 11/13/2021 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, right ankle and foot Sly Nix, DP 11/13/2021 M24.871 Other specific j oint derangements of right ankle, not elsewhere classified Sly Nix, DP 11/13/2021 M65.871 Other synovitis and tenosynovitis, right ankle and foot Sly Nix, DP 11/13/2021 M25.571 Pain in right an kle and joints of right foot Sly Nix DP 11/13/2021 R60.0 Localized edema Sly Del Rio, [facility] 11/13/2021 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 mellitus with diabetic polyneuropathy Sly DavidMiguelina Nix [facility] 11/13/2021 Z68.34 Body mass index [BMI] 34.0-34.9, adult Sly De Santiago Boyd, [facility] 10/09/2021 G89.18 Other acute postprocedural p ain Sly DavidMiguelina Nix, [facility] 10/09/2021 Z09 Encounter for fo llow-up examination after completed treatment for conditions other than malignant neoplasm Sly Nix, [facility] 10/09/2021 M76.61 Achilles tendinitis, right l eg Sly Nix, [facility] 10/09/2021 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 Mateo Oseguera PA-C 01/25/2022 I10 Essential (primary) hyperten corinne Mateo Oseguera PA-C 01/25/2022 Z68.36 Body mass index [BMI] 36.0-36.9, adult Mateo Oseguera PA-C 01/11/2022 M76.61 Achilles tendinitis, right l eg Sly Nix, DPM 01/11/2022 M24.871 Other specific j oint derangements of right ankle, not elsewhere classified Sly Nix, DPM 01/11/2022 M65.871 Other synovitis and tenosynovitis, right ankle and foot Sly Nix, DPM 01/11/2022 M25.571 Pain in right an kle and joints of right foot Sly Nix, DPM 01/11/2022 I87.2 Venous insuffici ency (chronic) (peripheral) Sly Nix, DPM 01/11/2022 R60.0 Localized edema Sly Jasso gatito, DPM 01/11/2022 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 mellitus with diabetic polyneuropathy Sly Nix, DPM 12/12/2021 M24.871 Other specific j oint derangements of right ankle, not elsewhere classified Sly Nix, DPM 12/12/2021 M76.61 Achilles tendinitis, right l eg Sly Nix, DPM 12/12/2021 M65.871 Other synovitis and tenosynovitis, right ankle and foot Sly Nix, DPM 12/12/2021 M25.571 Pain in right an kle and joints of right foot Sly Nix, DPM 12/12/2021 I87.2 Venous insuffici ency (chronic) (peripheral) Sly Nix, DPM 12/12/2021 R60.0 Localized edema Sly Jasso gatito, DPM 12/12/2021 B35.1 Tinea unguium Sly Velazquezi s, DPM 12/12/2021 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 mellitus with diabetic polyneuropathy Sly Nix, DPM 11/23/2021 G47.33 Obstructive slee p apnea (adult) (pediatric) Vlad Alaniz MD, [facility], [facility] 11/23/2021 G47.10 Hypersomnia, unspecified Shanell Alainz MD, [facility], [facility] 11/23/2021 R53.81 Other malaise Vlad [facility]iz MD, [facility], [facility] 11/23/2021 R53.83 Other fatigue Vlad Alaniz MD, [facility], [facility] 11/23/2021 I10 Essential (primary) hyperten corinne Vlad Alaniz MD, [facility], [facility] 11/13/2021 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, right ankle and foot Sly De Santiago Boyd, DPM 11/13/2021 M24.871 Other specific j oint derangements of right ankle, not elsewhere classified Sly HernandezMiguelina Nix, DPM 11/13/2021 M65.871 Other synovitis and tenosynovitis, right ankle and foot Sly HernandezMiguelina Nix, DPM 11/13/2021 M25.571 Pain in right an kle and joints of right foot Sly DavidMiguelina Nix, DPM 11/13/2021 R60.0 Localized edema Sly DavidMiguelina Del Rio, DP 11/13/2021 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 mellitus with diabetic polyneuropathy Sly HernandezMiguelina Nix DP 11/13/2021 Z68.34 Body mass index [BMI] 34.0-34.9, adult Sly HernandezMiguelina Nix, DP 10/09/2021 G89.18 Other acute postprocedural p ain Sly HernandezMiguelina Nix, [facility] 10/09/2021 Z09 Encounter for fo llow-up examination after completed treatment for conditions other than malignant neoplasm Sly HernandezMiguelina Nix, DP 10/09/2021 M76.61 Achilles tendinitis, right l eg Sly HernandezMiguelina Nix, DPM 10/09/2021 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, right ankle Sly HernandezMiguelina Nix DP 10/09/2021 M77.31 Calcaneal spur, right foot J oseph DavidMiguelina Nix, DPM 10/09/2021 M79.671 Pain in right foot Sly DavidMiguelina Nix DPM 10/09/2021 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 mellitus with diabetic polyneuropathy Sly DavidMiguelina Nix DP 10/09/2021 Z91.19 Patient's noncom pliance with other medical treatment and regimen Sly DavidMiguelina Nix DPM 10/09/2021 Z68.34 Body mass index [BMI] 34.0-34.9, adult Sly Nix DPM 10/03/2021 Z68.34 Body mass index [BMI] 34.0-34.9, adult Vlad Alaniz MD, [facility], [facility] Sly BoydMaisha. Work Phone: [phone] Evaluation note* Date Code Description Provider 01/11/2022 M76.61 Achilles tendinitis, right l eg Sly Nix, DP 01/11/2022 M24.871 Other specific j oint derangements of right ankle, not elsewhere classified Sly Nix, DP 01/11/2022 M65.871 Other synovitis and tenosynovitis, right ankle and foot Sly Nix, DPM 01/11/2022 M25.571 Pain in right an kle and joints of right foot Sly Nix, DPM 01/11/2022 I87.2 Venous insuffici ency (chronic) (peripheral) Sly Nix, DPM 01/11/2022 R60.0 Localized edema Sly DavidMiguelina Del Rio, DP 01/11/2022 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 mellitus with diabetic polyneuropathy Sly Nix, DP 12/12/2021 M24.871 Other specific j oint derangements of right ankle, not elsewhere classified Sly Nix, DP 12/12/2021 M76.61 Achilles tendinitis, right l eg Sly Nix, DP 12/12/2021 M65.871 Other synovitis and tenosynovitis, right ankle and foot Sly Nix, DP 12/12/2021 M25.571 Pain in right an kle and joints of right foot Sly Nix, DPM 12/12/2021 I87.2 Venous insuffici ency (chronic) (peripheral) Sly Nix, DPM 12/12/2021 R60.0 Localized edema Sly DavidMiguelina Del Rio, DPM 12/12/2021 B35.1 Tinea unguium Sly HernandezMiguelina best, DPM 12/12/2021 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 mellitus with diabetic polyneuropathy Sly HernandezMiguelina Nix, DPM 11/23/2021 G47.33 Obstructive slee p apnea (adult) (pediatric) Vlad Alaniz MD, [facility], [facility] 11/23/2021 G47.10 Hypersomnia, unspecified Shanell Alaniz MD, [facility], [facility] 11/23/2021 R53.81 Other malaise Vlad Alaniz MD, [facility], [facility] 11/23/2021 R53.83 Other fatigue Vlad Alaniz MD, [facility], [facility] 11/23/2021 I10 Essential (primary) hyperten corinne Vlad Alaniz MD, [facility], [facility] 11/13/2021 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, right ankle and foot Sly Nix, DP 11/13/2021 M24.871 Other specific j oint derangements of right ankle, not elsewhere classified Sly Nix DP 11/13/2021 M65.871 Other synovitis and tenosynovitis, right ankle and foot Sly Nix DP 11/13/2021 M25.571 Pain in right an kle and joints of right foot CAIO Vergara 11/13/2021 R60.0 Localized edema Sly Del Rio, DP 11/13/2021 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 mellitus with diabetic polyneuropathy CAIO Vergara 11/13/2021 Z68.34 Body mass index [BMI] 34.0-34.9, adult Sly Nix [facility] 10/09/2021 G89.18 Other acute postprocedural p ain Sly Nix [facility] 10/09/2021 Z09 Encounter for fo llow-up examination after completed treatment for conditions other than malignant neoplasm CAIO Vergara 10/09/2021 M76.61 Achilles tendinitis, right l eg Sly Nix, DPM 10/09/2021 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, right ankle Sly Nix DP 10/09/2021 M77.31 Calcaneal spur, right foot J osepbhupendra Nix DP 10/09/2021 M79.671 Pain in right foot Sly Nix DP 10/09/2021 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 mellitus with diabetic polyneuropathy CAIO Vergara 10/09/2021 Z91.19 Patient's noncom pliance with other medical treatment and regimen Sly Nix DPM 10/09/2021 Z68.34 Body mass index [BMI] 34.0-34.9, adult Sly Nix, DPM 10/03/2021 Z68.34 Body mass index [BMI] 34.0-34.9, adult Vlad Alaniz MD, [facility], [facility] 09/18/2021 Z91.19 Patient's noncom pliance with other medical treatment and regimen Sly Nix, DPM 09/18/2021 G89.18 Other acute postprocedural p ain Sly Nix, DPM 09/18/2021 Z09 Encounter for fo llow-up examination after completed treatment for conditions other than malignant neoplasm Sly De Santiago Boyd, DPM 09/18/2021 M76.61 Achilles tendinitis, right l eg Sly Nix, DPM 09/18/2021 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, right ankle Sly De Santiago Boyd, DPM 09/18/2021 M77.31 Calcaneal spur, right foot J grge Nix, DPM 09/18/2021 M79.671 Pain in right foot Sly Nix, DPM 09/18/2021 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 mellitus with diabetic polyneuropathy Sly Nix, DPM 09/18/2021 Z68.34 Body mass index [BMI] 34.0-34.9, adult Sly Nix, DPM 09/05/2021 Z91.19 Patient's noncom pliance with other medical treatment and regimen Sly Nix, DPM 09/05/2021 G89.18 Other acute postprocedural p ain Sly Nix, DPM 09/05/2021 Z09 Encounter for fo llow-up examination after completed treatment for conditions other than malignant neoplasm Sly De Santiago Boyd, DPM 09/05/2021 M76.61 Achilles tendinitis, right l eg Sly De Santiago Boyd, DPM 09/05/2021 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, right ankle Sly De Santiago Boyd, DPM 09/05/2021 M77.31 Calcaneal spur, right foot J greg Nix, DPM 09/05/2021 M79.671 Pain in right foot Sly Nix, DPM 09/05/2021 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 mellitus with diabetic polyneuropathy Sly Nix, DPM 08/25/2021 Z91.19 Patient's noncom pliance with other medical treatment and regimen Sly Nix, DPM 08/25/2021 Z09 Encounter for fo llow-up examination after completed treatment for conditions other than malignant neoplasm Sly Nix, DPM 08/25/2021 G89.18 Other acute postprocedural p ain Sly Nix, DPM 08/25/2021 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, right ankle Sly Nix, DPM 08/25/2021 M76.61 Achilles tendinitis, right l eg Sly Nix, DPM 08/25/2021 M77.31 Calcaneal spur, right foot J josselinsantos HernandezMiguelina Nix, DPM 08/25/2021 M79.671 Pain in right foot Sly Nix, DPM 08/25/2021 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 mellitus with diabetic polyneuropathy Sly Nix, DPM 08/21/2021 M76.61 Achilles tendinitis, right l eg Sly Nix, DPM 08/21/2021 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, right ankle Sly Nix, DPM 08/21/2021 M77.31 Calcaneal spur, right foot J greg HernandezMiguelina Nix, DPM 08/21/2021 M79.671 Pain in right foot Sly Nix, DPM 08/21/2021 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 mellitus with diabetic polyneuropathy Sly Nix, DPM 07/27/2021 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, right ankle Sly Nix, DPM 07/27/2021 M76.61 Achilles tendinitis, right l eg Sly Nix, DPM 07/27/2021 M77.31 Calcaneal spur, right foot J shannanbhupendra HernandezMiguelina Nix, DPM 07/27/2021 M79.671 Pain in right foot Sly Nix, DPM 07/27/2021 B35.1 Tinea unguium Sly Newton s, DPM 07/27/2021 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 mellitus with diabetic polyneuropathy Sly Nix, [facility] 07/27/2021 M20.42 Other hammer toe (s) (acquired), left foot Sly Nix, [facility] 07/27/2021 M20.41 Other hammer toe (s) (acquired), right foot Sly Nix, [facility] 07/27/2021 Z68.35 Body mass index [BMI] 35.0-35.9, adult Sly Nix, [facility] Sly Nix D.P.M. Work Phone: [phone] Evaluation note* Date Code Description Provider 12/12/2021 M24.871 Other specific j oint derangements of right ankle, not elsewhere classified Sly Nix [facility] 12/12/2021 M76.61 Achilles tendinitis, right l eg Sly Nix [facility] 12/12/2021 M65.871 Other synovitis and tenosynovitis, right ankle and foot Sly Nix [facility] 12/12/2021 M25.571 Pain in right an kle and joints of right foot Sly Nix [facility] 12/12/2021 I87.2 Venous insuffici ency (chronic) (peripheral) Sly Nix, [facility] 12/12/2021 R60.0 Localized edema Sly Jasso gatito, [facility] 12/12/2021 B35.1 Tinea unguium Sly Newton shayla, [facility] 12/12/2021 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 mellitus with diabetic polyneuropathy Sly Nix [facility] 11/23/2021 G47.33 Obstructive slee p apnea (adult) (pediatric) Vlad Alaniz MD, [facility], [facility] 11/23/2021 G47.10 Hypersomnia, unspecified Shanell Alaniz MD, [facility], [facility] 11/23/2021 R53.81 Other malaise Vlad Alaniz MD, [facility], [facility] 11/23/2021 R53.83 Other fatigue lVad Alaniz MD, [facility], [facility] 11/23/2021 I10 Essential (primary) hyperten corinne Vlad Alaniz MD, [facility], [facility] 11/13/2021 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, right ankle and foot Sly Nix, DPM 11/13/2021 M24.871 Other specific j oint derangements of right ankle, not elsewhere classified Sly Nix DPM 11/13/2021 M65.871 Other synovitis and tenosynovitis, right ankle and foot Sly De Santiago Boyd DPM 11/13/2021 M25.571 Pain in right an kle and joints of right foot Sly De Santiago Boyd DPM 11/13/2021 R60.0 Localized edema Sly HernandezMiguelina Del Rio, DPM 11/13/2021 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 mellitus with diabetic polyneuropathy Sly HernandezMiguelina Nix DPM 11/13/2021 Z68.34 Body mass index [BMI] 34.0-34.9, adult Sly De Santiago Boyd, DP 10/09/2021 G89.18 Other acute postprocedural p ain Sly HernandezMiguelina Nix [facility] 10/09/2021 Z09 Encounter for fo llow-up examination after completed treatment for conditions other than malignant neoplasm Sly De Santiago Boyd DPM 10/09/2021 M76.61 Achilles tendinitis, right l eg Sly DavidMiguelina Nix, DPM 10/09/2021 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, right ankle Sly De Santiago Boyd DPM 10/09/2021 M77.31 Calcaneal spur, right foot J oseph DavidMiguelina Nix, DP 10/09/2021 M79.671 Pain in right foot Sly HernandezMiguelina Nix DPM 10/09/2021 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 mellitus with diabetic polyneuropathy Sly HernandezMiguelina Nix DPM 10/09/2021 Z91.19 Patient's noncom pliance with other medical treatment and regimen Sly DavidMiguelina Nix DPM 10/09/2021 Z68.34 Body mass index [BMI] 34.0-34.9, adult Sly DavidMiguelina Nix, DPM 10/03/2021 Z68.34 Body mass index [BMI] 34.0-34.9, adult Vlad Alaniz MD, [facility], [facility] 09/18/2021 Z91.19 Patient's noncom pliance with other medical treatment and regimen Sly De Santiago Boyd, DPM 09/18/2021 G89.18 Other acute postprocedural p ain Sly Nix, DPM 09/18/2021 Z09 Encounter for fo llow-up examination after completed treatment for conditions other than malignant neoplasm Sly De Santiago Boyd, DPM 09/18/2021 M76.61 Achilles tendinitis, right l eg Sly De Santiago Boyd, DPM 09/18/2021 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, right ankle Sly De Santiago Boyd, DPM 09/18/2021 M77.31 Calcaneal spur, right foot J shannanbhupendra HernandezMiguelina Nix, DPM 09/18/2021 M79.671 Pain in right foot Sly De Santiago Boyd, DPM 09/18/2021 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 mellitus with diabetic polyneuropathy Sly HernandezMiguelina Nix, DPM 09/18/2021 Z68.34 Body mass index [BMI] 34.0-34.9, adult Sly De Santiago Boyd, DPM 09/05/2021 Z91.19 Patient's noncom pliance with other medical treatment and regimen Sly De Santiago Boyd, DPM 09/05/2021 G89.18 Other acute postprocedural p ain Sly De Santiago Boyd, DPM 09/05/2021 Z09 Encounter for fo llow-up examination after completed treatment for conditions other than malignant neoplasm Sly De Santiago Boyd, DPM 09/05/2021 M76.61 Achilles tendinitis, right l eg Sly De Santiago Boyd, DPM 09/05/2021 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, right ankle Sly De Santiago Boyd, DPM 09/05/2021 M77.31 Calcaneal spur, right foot J shannanbhupendra HernandezMiguelina Nix, DPM 09/05/2021 M79.671 Pain in right foot Sly DavidMiguelina Nix, DPM 09/05/2021 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 mellitus with diabetic polyneuropathy Sly HernandezMiguelina Nix, DPM 08/25/2021 Z91.19 Patient's noncom pliance with other medical treatment and regimen Sly DavidMiguelina Nix, DPM 08/25/2021 Z09 Encounter for fo llow-up examination after completed treatment for conditions other than malignant neoplasm Sly Nix, DPM 08/25/2021 G89.18 Other acute postprocedural p ain Sly Nix, DPM 08/25/2021 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, right ankle Sly Nix, DPM 08/25/2021 M76.61 Achilles tendinitis, right l eg Sly Nix, DPM 08/25/2021 M77.31 Calcaneal spur, right foot Kendra Nix, DPM 08/25/2021 M79.671 Pain in right foot Sly Nix, DPM 08/25/2021 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 mellitus with diabetic polyneuropathy Sly Nix, DPM 08/21/2021 M76.61 Achilles tendinitis, right l eg Sly Nix, DPM 08/21/2021 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, right ankle Sly Nix, DPM 08/21/2021 M77.31 Calcaneal spur, right foot Kendra Nix, DPM 08/21/2021 M79.671 Pain in right foot Sly Nix, DPM 08/21/2021 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 mellitus with diabetic polyneuropathy Sly Nix, DPM 07/27/2021 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, right ankle Sly Nix, DPM 07/27/2021 M76.61 Achilles tendinitis, right l eg Sly Nix, DPM 07/27/2021 M77.31 Calcaneal spur, right foot Kendra Nix, DPM 07/27/2021 M79.671 Pain in right foot Sly Nix, DPM 07/27/2021 B35.1 Tinea unguium Sly Velazquezi s, DPM 07/27/2021 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 mellitus with diabetic polyneuropathy Sly Nix, DPM 07/27/2021 M20.42 Other hammer toe (s) (acquired), left foot Sly Nix, DPM 07/27/2021 M20.41 Other hammer toe (s) (acquired), right foot Sly Nix, DPM 07/27/2021 Z68.35 Body mass index [BMI] 35.0-35.9, adult Sly Nix, DPM 07/03/2021 Z09 Encounter for fo llow-up examination after completed treatment for conditions other than malignant neoplasm Sly Nix, DPM 07/03/2021 G89.18 Other acute postprocedural p ain Sly Nix, DPM 07/03/2021 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, left ankle Sly Nix, DPM 07/03/2021 M76.62 Achilles tendinitis, left le g Sly Nix, DPM 07/03/2021 M77.32 Calcaneal spur, left foot Lisseth Nix, DPM 07/03/2021 M79.672 Pain in left foot Sly Nix, DPM 07/03/2021 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 mellitus with diabetic polyneuropathy Sly Nix, DPM 07/03/2021 Z68.35 Body mass index [BMI] 35.0-35.9, adult Sly Nix, DPM 06/20/2021 Z09 Encounter for fo llow-up examination after completed treatment for conditions other than malignant neoplasm Sly Nix, DPM 06/20/2021 G89.18 Other acute postprocedural p ain Sly Nix, DPM 06/20/2021 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 Work Phone: 1([phone]) 234-755305-31-2022 Evaluation note* Date Code Description Provider 12/12/2021 M24.871 Other specific j oint derangements of right ankle, not elsewhere classified Sly Nix, [facility] 12/12/2021 M76.61 Achilles tendinitis, right l eg Sly Nix, [facility] 12/12/2021 M65.871 Other synovitis and tenosynovitis, right ankle and foot Sly De Santiago Boyd [facility] 12/12/2021 M25.571 Pain in right an kle and joints of right foot Sly De Santiago Boyd, [facility] 12/12/2021 I87.2 Venous insuffici ency (chronic) (peripheral) Sly HernandezMiguelina Nix, [facility] 12/12/2021 R60.0 Localized edema Sly Del Rio, [facility] 12/12/2021 B35.1 Tinea unguium Sly HernandezMiguelina best, [facility] 12/12/2021 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 mellitus with diabetic polyneuropathy Sly HernandezMiguelina Nix [facility] 11/23/2021 G47.33 Obstructive slee p apnea (adult) (pediatric) Vlad Alaniz MD, [facility], [facility] 11/23/2021 G47.10 Hypersomnia, unspecified Shanell Alaniz MD, [facility], [facility] 11/23/2021 R53.81 Other malaise Vlad Alaniz MD, [facility], [facility] 11/23/2021 R53.83 Other fatigue Vlad Alaniz MD, [facility], [facility] 11/23/2021 I10 Essential (primary) hyperten corinne Vlad Alaniz MD, [facility], [facility] 11/13/2021 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, right ankle and foot Sly HernandezMiguelina Nix, [facility] 11/13/2021 M24.871 Other specific j oint derangements of right ankle, not elsewhere classified Sly Nix [facility] 11/13/2021 M65.871 Other synovitis and tenosynovitis, right ankle and foot Sly HernandezMiguelina Nix [facility] 11/13/2021 M25.571 Pain in right an kle and joints of right foot Sly DavidMiguelina Nix [facility] 11/13/2021 R60.0 Localized edema Sly Del Rio, DPM 11/13/2021 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 mellitus with diabetic polyneuropathy Sly Nix, DPM 11/13/2021 Z68.34 Body mass index [BMI] 34.0-34.9, adult Sly Nix, DPM 10/09/2021 G89.18 Other acute postprocedural p ain Sly Nix, DPM 10/09/2021 Z09 Encounter for fo llow-up examination after completed treatment for conditions other than malignant neoplasm Sly Nix, DPM 10/09/2021 M76.61 Achilles tendinitis, right l eg Sly Nix, DPM 10/09/2021 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, right ankle Sly Jonnathan Boyd, DPM 10/09/2021 M77.31 Calcaneal spur, right foot J greg Nix, DPM 10/09/2021 M79.671 Pain in right foot Sly De Santiago Boyd, DPM 10/09/2021 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 mellitus with diabetic polyneuropathy Sly Nix, DPM 10/09/2021 Z91.19 Patient's noncom pliance with other medical treatment and regimen Sly Nix, DPM 10/09/2021 Z68.34 Body mass index [BMI] 34.0-34.9, adult Sly Nix, DPM 10/03/2021 Z68.34 Body mass index [BMI] 34.0-34.9, adult Vlad Alaniz MD, [facility], [facility] 09/18/2021 Z91.19 Patient's noncom pliance with other medical treatment and regimen Sly Nix, DPM 09/18/2021 G89.18 Other acute postprocedural p vahen Sly Nix, DPM 09/18/2021 Z09 Encounter for fo llow-up examination after completed treatment for conditions other than malignant neoplasm Sly De Santiago Boyd, DPM 09/18/2021 M76.61 Achilles tendinitis, right l eg Sly De Santiago Boyd, DPM 09/18/2021 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, right ankle Sly DavidMiguelina Nix, DPM 09/18/2021 M77.31 Calcaneal spur, right foot J greg Nix, DPM 09/18/2021 M79.671 Pain in right foot Sly Nix, DPM 09/18/2021 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 mellitus with diabetic polyneuropathy Sly Nix, DPM 09/18/2021 Z68.34 Body mass index [BMI] 34.0-34.9, adult Sly Nix, DPM 09/05/2021 Z91.19 Patient's noncom pliance with other medical treatment and regimen Sly Nix, DPM 09/05/2021 G89.18 Other acute postprocedural p ain Sly Nix, DPM 09/05/2021 Z09 Encounter for fo llow-up examination after completed treatment for conditions other than malignant neoplasm Sly Nix, DPM 09/05/2021 M76.61 Achilles tendinitis, right l eg Sly Nix, DPM 09/05/2021 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, right ankle Sly Nix, DPM 09/05/2021 M77.31 Calcaneal spur, right foot J josselinsantos Nix, DPM 09/05/2021 M79.671 Pain in right foot Sly Nix, DPM 09/05/2021 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 mellitus with diabetic polyneuropathy Sly Nix, DPM 08/25/2021 Z91.19 Patient's noncom pliance with other medical treatment and regimen Sly Nix, DPM 08/25/2021 Z09 Encounter for fo llow-up examination after completed treatment for conditions other than malignant neoplasm Sly Nix, DPM 08/25/2021 G89.18 Other acute postprocedural p ain Sly Nix, DPM 08/25/2021 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, right ankle Sly Nix, DPM 08/25/2021 M76.61 Achilles tendinitis, right l eg Sly Nix, DPM 08/25/2021 M77.31 Calcaneal spur, right foot J shannanbhupendra De Santiago Boyd, DPM 08/25/2021 M79.671 Pain in right foot Sly Nix, DPM 08/25/2021 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 mellitus with diabetic polyneuropathy Sly Nix, DPM 08/21/2021 M76.61 Achilles tendinitis, right l eg Sly Nix, DPM 08/21/2021 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, right ankle Sly Nix, DPM 08/21/2021 M77.31 Calcaneal spur, right foot Kendra Nix, DPM 08/21/2021 M79.671 Pain in right foot Sly Nix, DPM 08/21/2021 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 mellitus with diabetic polyneuropathy Sly Nix, DPM 07/27/2021 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, right ankle Sly Nix, DPM 07/27/2021 M76.61 Achilles tendinitis, right l eg Sly Nix, DPM 07/27/2021 M77.31 Calcaneal spur, right foot J greg Nix, DPM 07/27/2021 M79.671 Pain in right foot Sly Nix, DP 07/27/2021 B35.1 Tinea unguium Sly Newton s, DP 07/27/2021 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 mellitus with diabetic polyneuropathy Sly Nix, DP 07/27/2021 M20.42 Other hammer toe (s) (acquired), left foot Sly Nix, DP 07/27/2021 M20.41 Other hammer toe (s) (acquired), right foot Sly Nix, [facility] 07/27/2021 Z68.35 Body mass index [BMI] 35.0-35.9, adult Sly Nix, [facility] Sly Nix, D.P.M. Work Phone: 1(576) 643-574705-12-2022 Evaluation note* Date Code Description Provider 11/23/2021 G47.33 Obstructive slee p apnea (adult) (pediatric) Vlad Alaniz MD, [facility], [facility] 11/23/2021 G47.10 Hypersomnia, unspecified Shanell Alaniz MD, [facility], [facility] 11/23/2021 R53.81 Other malaise Vlad Alaniz MD, [facility], [facility] 11/23/2021 R53.83 Other fatigue Vlad Alaniz MD, [facility], [facility] 11/23/2021 I10 Essential (primary) hyperten corinne Vlad Alaniz MD, [facility], [facility] 11/13/2021 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, right ankle and foot Sly Nix, DP 11/13/2021 M24.871 Other specific j oint derangements of right ankle, not elsewhere classified Sly Nix DP 11/13/2021 M65.871 Other synovitis and tenosynovitis, right ankle and foot Sly Nix DP 11/13/2021 M25.571 Pain in right an kle and joints of right foot Sly Nix DPM 11/13/2021 R60.0 Localized edema Sly Del Rio, DP 11/13/2021 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 mellitus with diabetic polyneuropathy Sly Nix DP 11/13/2021 Z68.34 Body mass index [BMI] 34.0-34.9, adult Sly Nix DP 10/09/2021 G89.18 Other acute postprocedural p ain Sly Nix [facility] 10/09/2021 Z09 Encounter for fo llow-up examination after completed treatment for conditions other than malignant neoplasm Sly Nix DPM 10/09/2021 M76.61 Achilles tendinitis, right l eg Sly Nix, DP 10/09/2021 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, right ankle Sly Nix DPM 10/09/2021 M77.31 Calcaneal spur, right foot J oseph Jonnathan Nix, DPM 10/09/2021 M79.671 Pain in right foot Sly Nix DPM 10/09/2021 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 mellitus with diabetic polyneuropathy Sly Nix DPM 10/09/2021 Z91.19 Patient's noncom pliance with other medical treatment and regimen CAIO Vergara 10/09/2021 Z68.34 Body mass index [BMI] 34.0-34.9, adult Sly Nix DPM 10/03/2021 Z68.34 Body mass index [BMI] 34.0-34.9, adult Vlad Alaniz MD, [facility], [facility] 09/18/2021 Z91.19 Patient's noncom pliance with other medical treatment and regimen Sly Nix, DPM 09/18/2021 G89.18 Other acute postprocedural p ain Sly De Santiago Boyd, DPM 09/18/2021 Z09 Encounter for fo llow-up examination after completed treatment for conditions other than malignant neoplasm Sly De Santiago Boyd, DPM 09/18/2021 M76.61 Achilles tendinitis, right l eg Sly HernandezMiguelina Nix, DPM 09/18/2021 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, right ankle Sly HernandezMiguelina Nix, DPM 09/18/2021 M77.31 Calcaneal spur, right foot J greg Nix, DPM 09/18/2021 M79.671 Pain in right foot Sly DavidMiguelina Nix, DPM 09/18/2021 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 mellitus with diabetic polyneuropathy Sly De Santiago Boyd, DPM 09/18/2021 Z68.34 Body mass index [BMI] 34.0-34.9, adult Sly Nix, DPM 09/05/2021 Z91.19 Patient's noncom pliance with other medical treatment and regimen Sly De Santiago Boyd, DPM 09/05/2021 G89.18 Other acute postprocedural p ain Sly De Santiago Boyd, DPM 09/05/2021 Z09 Encounter for fo llow-up examination after completed treatment for conditions other than malignant neoplasm Sly HernandezMiguelina Nix, DPM 09/05/2021 M76.61 Achilles tendinitis, right l eg Sly HernandezMiguelina Nix, DPM 09/05/2021 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, right ankle Sly DavidMiguelina Nix, DPM 09/05/2021 M77.31 Calcaneal spur, right foot J greg Nix, DPM 09/05/2021 M79.671 Pain in right foot Sly DavidMiguelina Nix, DPM 09/05/2021 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 mellitus with diabetic polyneuropathy Sly Nix DPM 08/25/2021 Z91.19 Patient's noncom pliance with other medical treatment and regimen Sly Nix, DPM 08/25/2021 Z09 Encounter for fo llow-up examination after completed treatment for conditions other than malignant neoplasm Sly Nix, DPM 08/25/2021 G89.18 Other acute postprocedural p ain Sly Nix, DPM 08/25/2021 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, right ankle Sly Nix, DPM 08/25/2021 M76.61 Achilles tendinitis, right l eg Sly Nix, DPM 08/25/2021 M77.31 Calcaneal spur, right foot J greg Nix, DPM 08/25/2021 M79.671 Pain in right foot Sly Nix, DPM 08/25/2021 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 mellitus with diabetic polyneuropathy Sly Nix, DPM 08/21/2021 M76.61 Achilles tendinitis, right l eg Sly Nix, DPM 08/21/2021 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, right ankle Sly Nix, DPM 08/21/2021 M77.31 Calcaneal spur, right foot Kendra Nix, DPM 08/21/2021 M79.671 Pain in right foot Sly Nix, DPM 08/21/2021 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 mellitus with diabetic polyneuropathy Sly Nix, DPM 07/27/2021 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, right ankle Sly Nix, DPM 07/27/2021 M76.61 Achilles tendinitis, right l eg Sly Nix, DPM 07/27/2021 M77.31 Calcaneal spur, right foot Kendra Nix, DPM 07/27/2021 M79.671 Pain in right foot Sly Nix, DPM 07/27/2021 B35.1 Tinea unguium Sly HernandezMiguelina best, DPM 07/27/2021 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 mellitus with diabetic polyneuropathy Sly Nix, DPM 07/27/2021 M20.42 Other hammer toe (s) (acquired), left foot Sly Nix, DPM 07/27/2021 M20.41 Other hammer toe (s) (acquired), right foot Sly Nix, DPM 07/27/2021 Z68.35 Body mass index [BMI] 35.0-35.9, adult Sly Nix, DPM 07/03/2021 Z09 Encounter for fo llow-up examination after completed treatment for conditions other than malignant neoplasm Sly Nix, DPM 07/03/2021 G89.18 Other acute postprocedural p ain Sly Nix, DPM 07/03/2021 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, left ankle Sly Nix, DPM 07/03/2021 M76.62 Achilles tendinitis, left le g Sly Nix, DPM 07/03/2021 M77.32 Calcaneal spur, left foot Lisseth Nix, DPM 07/03/2021 M79.672 Pain in left foot Sly Nix, DPM 07/03/2021 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 mellitus with diabetic polyneuropathy Sly Nix, DPM 07/03/2021 Z68.35 Body mass index [BMI] 35.0-35.9, adult Sly Nix, DPM 06/20/2021 Z09 Encounter for fo llow-up examination after completed treatment for conditions other than malignant neoplasm Sly Nix, DPM 06/20/2021 G89.18 Other acute postprocedural p ain Sly Nix, DPM 06/20/2021 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, left ankle Sly Nix, DPM 06/20/2021 M76.62 Achilles tendinitis, left le g Sly Nix, DPM 06/20/2021 M77.32 Calcaneal spur, left foot Lisseth Nix, DPM 06/20/2021 M79.672 Pain in left foot Sly Nix, DPM 06/20/2021 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 mellitus with diabetic polyneuropathy Sly Nix, DPM 06/20/2021 Z68.36 Body mass index [BMI] 36.0-36.9, adult Sly DavidCAIO Torres 06/13/2021 Z09 Encounter for fo llow-up examination after completed treatment for conditions other than malignant neoplasm CAIO Vergara 06/13/2021 G89.18 Other acute postprocedural p ain CAIO Vergara 06/13/2021 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, left ankle CAIO Vergara 06/13/2021 M76.62 Achilles tendinitis, left le g CAIO Vergara 06/13/2021 M77.32 Calcaneal spur, left foot CAIO Allison 06/13/2021 M79.672 Pain in left foot CAIO Vergara 06/13/2021 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 mellitus with diabetic polyneuropathy CAIO Vergara 06/13/2021 I87.2 Venous insuffici ency (chronic) (peripheral) CAIO Vergara 06/13/2021 Z68.35 Body mass index [BMI] 35.0-35.9, adult CAIO Vergara Sly Nix D.P.M. Work Phone: [phone]) [phone] Evaluation note* Date Code Description Provider 11/23/2021 G47.33 Obstructive slee p apnea (adult) (pediatric) Vlad Alaniz MD, [facility], [facility] 11/23/2021 G47.10 Hypersomnia, unspecified Shanell Alaniz MD, [facility], [facility] 11/23/2021 R53.81 Other malaise Vlad Alaniz MD, [facility], [facility] 11/23/2021 R53.83 Other fatigue Vlad Alaniz MD, [facility], [facility] 11/23/2021 I10 Essential (primary) hyperten corinne Vlad Alaniz MD, [facility], [facility] 11/13/2021 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, right ankle and foot CAIO Vergara 11/13/2021 M24.871 Other specific j oint derangements of right ankle, not elsewhere classified Sly Nix DPM 11/13/2021 M65.871 Other synovitis and tenosynovitis, right ankle and foot Sly Nix, DPM 11/13/2021 M25.571 Pain in right an kle and joints of right foot Sly Nix, DPM 11/13/2021 R60.0 Localized edema Sly De Santiago Romero mederos, DPM 11/13/2021 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 mellitus with diabetic polyneuropathy Sly Nix, DPM 11/13/2021 Z68.34 Body mass index [BMI] 34.0-34.9, adult Sly Nix, DPM 10/09/2021 G89.18 Other acute postprocedural p ain Sly Nix, DPM 10/09/2021 Z09 Encounter for fo llow-up examination after completed treatment for conditions other than malignant neoplasm Sly Nix, DPM 10/09/2021 M76.61 Achilles tendinitis, right l eg Sly Nix, DPM 10/09/2021 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, right ankle Sly Nix, DPM 10/09/2021 M77.31 Calcaneal spur, right foot J osepbhupendra Nix, DP 10/09/2021 M79.671 Pain in right foot Sly Nix, DPM 10/09/2021 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 mellitus with diabetic polyneuropathy Sly Nix, DP 10/09/2021 Z91.19 Patient's noncom pliance with other medical treatment and regimen Sly De Santiago Boyd, DPM 10/09/2021 Z68.34 Body mass index [BMI] 34.0-34.9, adult Sly Nix, DPM 10/03/2021 Z68.34 Body mass index [BMI] 34.0-34.9, adult Vlad Alaniz MD, [facility], [facility] 09/18/2021 Z91.19 Patient's noncom pliance with other medical treatment and regimen Sly De Santiago Boyd, DPM 09/18/2021 G89.18 Other acute postprocedural p ain Sly HernandezMiguelina Nix, DPM 09/18/2021 Z09 Encounter for fo llow-up examination after completed treatment for conditions other than malignant neoplasm Sly Nix, DPM 09/18/2021 M76.61 Achilles tendinitis, right l eg lSy Nix, DPM 09/18/2021 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, right ankle Sly Nix, DPM 09/18/2021 M77.31 Calcaneal spur, right foot J greg Nix, DPM 09/18/2021 M79.671 Pain in right foot Sly Nix, DPM 09/18/2021 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 mellitus with diabetic polyneuropathy Sly Nix, DPM 09/18/2021 Z68.34 Body mass index [BMI] 34.0-34.9, adult Sly Nix, DPM 09/05/2021 Z91.19 Patient's noncom pliance with other medical treatment and regimen Sly De Santiago Boyd, DPM 09/05/2021 G89.18 Other acute postprocedural p ain Sly De Santiago Boyd, DPM 09/05/2021 Z09 Encounter for fo llow-up examination after completed treatment for conditions other than malignant neoplasm Sly Nix, DPM 09/05/2021 M76.61 Achilles tendinitis, right l eg Sly Nix, DPM 09/05/2021 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, right ankle Sly Nix, DPM 09/05/2021 M77.31 Calcaneal spur, right foot Kendra De Santiago Boyd, DPM 09/05/2021 M79.671 Pain in right foot Sly De Santiago Boyd, DPM 09/05/2021 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 mellitus with diabetic polyneuropathy Sly De Santiago Boyd, DPM 08/25/2021 Z91.19 Patient's noncom pliance with other medical treatment and regimen Sly HernandezMiguelina Nix, DPM 08/25/2021 Z09 Encounter for fo llow-up examination after completed treatment for conditions other than malignant neoplasm Sly De Santiago Boyd, DPM 08/25/2021 G89.18 Other acute postprocedural p ain Sly De Santiago Boyd, DPM 08/25/2021 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, right ankle Sly Nix, DPM 08/25/2021 M76.61 Achilles tendinitis, right l eg Sly Nix, DPM 08/25/2021 M77.31 Calcaneal spur, right foot Kendra Nix, DPM 08/25/2021 M79.671 Pain in right foot Sly Nix, DPM 08/25/2021 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 mellitus with diabetic polyneuropathy Sly Nix, DPM 08/21/2021 M76.61 Achilles tendinitis, right l eg Sly Nix, DPM 08/21/2021 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, right ankle Sly Nix, DPM 08/21/2021 M77.31 Calcaneal spur, right foot Kendra Nix, DPM 08/21/2021 M79.671 Pain in right foot Sly Nix, DPM 08/21/2021 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 mellitus with diabetic polyneuropathy Sly Nix, DPM 07/27/2021 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, right ankle Sly Nix, DPM 07/27/2021 M76.61 Achilles tendinitis, right l eg Sly Nix, DPM 07/27/2021 M77.31 Calcaneal spur, right foot Kendra Nix, DPM 07/27/2021 M79.671 Pain in right foot Sly Nix, DPM 07/27/2021 B35.1 Tinea unguium Sly Velazquezi s, DPM 07/27/2021 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 mellitus with diabetic polyneuropathy Sly Nix, DPM 07/27/2021 M20.42 Other hammer toe (s) (acquired), left foot Sly Nix, DPM 07/27/2021 M20.41 Other hammer toe (s) (acquired), right foot Sly Nix, DPM 07/27/2021 Z68.35 Body mass index [BMI] 35.0-35.9, adult Sly Nix, DPM 07/03/2021 Z09 Encounter for fo llow-up examination after completed treatment for conditions other than malignant neoplasm Sly Nix, DPM 07/03/2021 G89.18 Other acute postprocedural p ain Sly Nix, DPM 07/03/2021 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, left ankle Sly Nix, DPM 07/03/2021 M76.62 Achilles tendinitis, left le g Sly Nix, DPM 07/03/2021 M77.32 Calcaneal spur, left foot Lisseth Nix, DPM 07/03/2021 M79.672 Pain in left foot Sly Nix, DPM 07/03/2021 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 mellitus with diabetic polyneuropathy Sly Nix, DPM 07/03/2021 Z68.35 Body mass index [BMI] 35.0-35.9, adult Sly Nix, DPM 06/20/2021 Z09 Encounter for fo llow-up examination after completed treatment for conditions other than malignant neoplasm Sly Nix, DPM 06/20/2021 G89.18 Other acute postprocedural p ain Sly iNx, DPM 06/20/2021 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, left ankle Sly Nix, DPM 06/20/2021 M76.62 Achilles tendinitis, left le g Sly Nix, DPM 06/20/2021 M77.32 Calcaneal spur, left foot Lisseth Nix, DPM 06/20/2021 M79.672 Pain in left foot Sly Nix, DPM 06/20/2021 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 mellitus with diabetic polyneuropathy Sly Nix, DPM 06/20/2021 Z68.36 Body mass index [BMI] 36.0-36.9, adult Sly Nix, [facility] Sly Nix, D.P.M. Work Phone: 1(705) 494-325804-01-2022 Evaluation + Plan note* Assessment & Plan Note - Abbey Oliveira CNP - 10/13/2021 1:16 PM EDTAssociated Problem(s): Benign essential HTN -Controlled, no changes. [id number] Miscellaneous Notes* Assessment & Plan Note - Abbey Oliveira CNP - 10/13/2021 1:16 PM EDTAssociated Problem(s): Benign essential HTN -Controlled, no changes. * Assessment & Plan Note - Abbey Oliveira CNP - 10/13/2021 1:15 PM EDT Associated Problem(s): Nonischemic cardiomyopathy (HCC) -Nonischemic cardiomyopathy, functional class II. Recovered ejection fraction 45 to 50% now. -She is euvolemic on exam. -Continue carvedilol, Aldactone and losartan at current doses. -Continue Lasix 40 mg twice daily -Labs reviewed -Schedule device check -Follow-up 6 months. documented in this [id number] Evaluation + Plan note* Assessment & Plan Note - Abbey Oliveira CNP - 10/13/2021 1:15 PM EDT Associated Problem(s): Nonischemic cardiomyopathy (HCC) -Nonischemic cardiomyopathy, functional class II. Recovered ejection fraction 45 to 50% now. -She is euvolemic on exam. -Continue carvedilol, Aldactone and losartan at current doses. -Continue Lasix 40 mg twice daily -Labs reviewed -Schedule device check -Follow-up 6 months. [id number] Instructions* Patient Instructions* Juany Harden RN - 10/13/2021 11:35 AM EDT No changes today 2. Follow up in 6 months documented in this [id number] History of Present illness Narrative* Krupa Hercules MA - 10/13/2021 11:19 AM EDT Review of Systems Constitutional: Negative for diaphoresis, malaise/fatigue, weight gain and weight loss. HENT: Negative for hearing loss, nosebleeds and tinnitus. Eyes: Negative for blurred vision and visual disturbance. Cardiovascular: Negative for chest pain, claudication, cyanosis, dyspnea on exertion, irregular heartbeat, leg swelling, near-syncope, orthopnea, palpitations, paroxysmal nocturnal dyspnea and syncope. Respiratory: Negative for hemoptysis, shortness of breath and snoring. Endocrine: Negative for cold intolerance and heat intolerance. Hematologic/Lymphatic: Does not bruise/bleed easily. Skin: Negative for flushing, poor wound healing and rash. Musculoskeletal: Negative for back pain, muscle weakness and myalgias. Gastrointestinal: Negative for abdominal pain, change in bowel habit, melena, nausea and vomiting. Genitourinary: Negative for decreased libido and hematuria. Neurological: Negative for loss of balance and numbness. Psychiatric/Behavioral: Negative for memory loss. The patient is not nervous/anxious. * Abbey Oliveira CNP - 10/13/2021 11:12 AM EDT Images from the original note were not included. General Cardiology Clinic Consult [facility] 10/13/2021 Patient: Michelle Jules Date of : 1965 (56 y.o.) Referring Provider: No ref. provider found PCP: Physician No Assessment & Plan Nonischemic cardiomyopathy (HCC) -Nonischemic cardiomyopathy, functional class II. Recovered ejection fraction 45 to 50% now. -She is euvolemic on exam. -Continue carvedilol, Aldactone and losartan at current doses. -Continue Lasix 40 mg twice daily -Labs reviewed -Schedule device check -Follow-up 6 months. Benign essential HTN -Controlled, no changes. Follow-up: No follow-ups on file. Chief Complaint: Follow-up (1 yr f/u NON-ischemic cardiomyopathy) Subjective History of Present Illness: Michelle Jules is a 56 y.o. female with a past medical history of nonischemic cardiomyopathy (ICD) recovered EF, hyperlipidemia, hypertension, 2 diabetes, obesity, GERD, depression. Echocardiogram on 08/31/2019 showed an ejection fraction of 45 to 50% with no regional wall motion abnormalities. Trace tricuspid valve regurgitation. Today, she is here for follow-up for her pre-existing cardiac conditions. She has not had any chestpain. Says she has mild shortness of breath when exerting herself. Especially when she is experiencing emotional distress. She said she was walking for exercise but has kind of slacked off due to theweather. Last week she walked twice about a half a mile did not have any issues with that. She saidshe is been having some issues controlling her blood sugar. 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 She has not noticed any lower extremity edema. Denies orthopnea or PND. No dizziness or syncope. Blood pressures been controlled. No events on last device check. Objective Imaging: I independently reviewed the EKG and agree with the interpretation(s) with the following comments. See above ECG 12 lead Final Result by Abbey Oliveira CNP (10/13/2021 1122) Echocardiogram complete w contrast Final Result by Janet Jacobo MA (09/01/2019 1039) Review of Systems: Review of systems performed by the medical laboratory technical officer, personally reviewed and viewable in the current patient encounter. Pertinent positive and negative findings detailed in HPI. Review of Systems Constitutional: Negative for diaphoresis, malaise/fatigue, weight gain and weight loss. HENT: Negative for hearing loss, nosebleeds and tinnitus. Eyes: Negative for blurred vision and visual disturbance. Cardiovascular: Negative for chest pain, claudication, cyanosis, dyspnea on exertion, irregular heartbeat, leg swelling, near-syncope, orthopnea, palpitations, paroxysmal nocturnal dyspnea and syncope. Respiratory: Negative for hemoptysis, shortness of breath and snoring. Endocrine: Negative for cold intolerance and heat intolerance. Hematologic/Lymphatic: Does not bruise/bleed easily. Skin: Negative for flushing, poor wound healing and rash. Musculoskeletal: Negative for back pain, muscle weakness and myalgias. Gastrointestinal: Negative for abdominal pain, change in bowel habit, melena, nausea and vomiting. Genitourinary: Negative for decreased libido and hematuria. Neurological: Negative for loss of balance and numbness. Psychiatric/Behavioral: Negative for memory loss. The patient is not nervous/anxious. History reviewed. No pertinent past medical history. Past Surgical History: Procedure Laterality Date CARDIAC CATHETERIZATION CARDIAC PACEMAKER PLACEMENT CAROTID STENT FOOT SURGERY Bone spur removed Family History Problem Relation Age of Onset Diabetes Mother Heart attack Mother Hyperlipidemia Mother Hypertension Mother Heart attack Father Hyperlipidemia Father Hypertension Sister Diabetes Maternal Grandmother Heart attack Maternal Grandmother Heart failure Maternal Grandmother Hyperlipidemia Maternal Grandmother Stroke Maternal Grandmother Social History Tobacco Use Smoking Status Never Smoker Smokeless Tobacco Never Used Allergies: Latex, Metformin, and Simvastatin HOME Medications: Current Outpatient Medications on File Prior to Visit Medication Sig ergocalciferol (ERGOCALCIFEROL) 1,250 mcg (50,000 unit) capsule Take 50,000 Units by mouth once a week . fexofenadine (BETINA) 180 MG tablet Take 180 mg by mouth daily . gabapentin (NEURONTIN) 300 MG capsule Take 300 mg by mouth 2 (two) times a day . glyBURIDE (DIABETA) 5 MG tablet Take 5 mg by mouth daily with breakfast . hydrOXYzine (ATARAX) 25 MG tablet Take 25 mg by mouth daily . insulin glargine (LANTUS) 100 unit/mL (3 mL) InPn Inject 70 Units under the skin nightly . insulin lispro 100 unit/mL InPn Inject under the skin . oxybutynin (DITROPAN XL) 15 MG 24 hr tablet Take 15 mg by mouth daily . pantoprazole (PROTONIX) 40 MG tablet Take 40 mg by mouth daily . pramipexole (MIRAPEX) 0.75 MG tablet Take 0.75 mg by mouth nightly . sertraline (ZOLOFT) 100 MG tablet Take 100 mg by mouth daily . triamcinolone (KENALOG) 0.1 % ointment [DISCONTINUED] aspirin 81 MG EC tablet Take 1 (one) tablet (81 mg total) by mouth daily . [DISCONTINUED] atorvastatin (LIPITOR) 10 MG tablet Take 1 (one) tablet (10 mg total) by mouth daily. [DISCONTINUED] carvediloL (COREG) 25 MG tablet Take 1 (one) tablet (25 mg total) by mouth 2 (two) times a day . [DISCONTINUED] losartan (COZAAR) 25 MG tablet Take 0.5 (one-half) tablet (12.5 mg total) by mouth daily . [DISCONTINUED] potassium chloride SA (K-DUR,KLOR-CON) 20 MEQ tablet Take 20 mEq by mouth daily . [DISCONTINUED] spironolactone (ALDACTONE) 25 MG tablet Take 1 (one) tablet (25 mg total) by mouth daily . magnesium oxide (MAG-OX) 400 mg (241.3 mg magnesium) tablet Take 1 (one) tablet (400 mg total) by mouth daily . (Patient taking differently: Take 400 mg by mouth 2 (two) times a day .) [DISCONTINUED] albuterol 90 mcg/actuation inhaler Inhale 2 puffs every 6 (six) hours as needed for wheezing . [DISCONTINUED] alogliptin (Nesina) 25 mg Tab Take 25 mg by mouth daily . [DISCONTINUED] baclofen (LIORESAL) 10 MG tablet Take 10 mg by mouth nightly as needed . [DISCONTINUED] enalapril (VASOTEC) 2.5 MG tablet Take 2.5 mg by mouth daily . [DISCONTINUED] fluticasone propionate (FLONASE) 50 mcg/actuation nasal spray Instill 2 sprays into each nostril daily . [DISCONTINUED] furosemide (LASIX) 40 MG tablet TAKE ONE TABLET BY MOUTH TWICE A DAY (Patient takingdifferently: Take 40 mg by mouth daily .) [DISCONTINUED] Metafolbic Plus 600-2-6 mg Tab [DISCONTINUED] polyethylene glycol (MIRALAX) 17 gram powder Take 17 g by mouth daily . [DISCONTINUED] Stool Softener 100 mg capsule TAKE ONE CAPSULE BY MOUTH TWICE DAILY No current facility-administered medications on file prior to visit. Vital Signs: BP (!) 114/55 (BP Location: Left arm, Patient Position: Sitting) Pulse 62 Ht 5' 9 Wt 103.5 kg (228 lb 1.6 oz) SpO2 96% BMI 33.68 kg/m Physical Exam Vitals reviewed. Constitutional: Appearance: She is well-developed. Comments: obese HENT: Head: Normocephalic and atraumatic. Eyes: General: Lids are normal. Right eye: No discharge. Left eye: No discharge. Conjunctiva/sclera: Conjunctivae normal. Neck: Vascular: No carotid bruit or JVD. Cardiovascular: Rate and Rhythm: Normal rate and regular rhythm. Pulses: Normal pulses. Heart sounds: Normal heart sounds. No murmur heard. Pulmonary: Effort: Pulmonary effort is normal. No respiratory distress. Breath sounds: Normal breath sounds. No wheezing or rales. Abdominal: General: Bowel sounds are normal. Palpations: Abdomen is soft. There is no mass. Tenderness: There is no abdominal tenderness. Musculoskeletal: General: Normal range of motion. Skin: General: Skin is warm. Findings: No rash. Neurological: Mental Status: She is alert and oriented to person, place, and time. Gait: Gait normal. Psychiatric: Behavior: Behavior normal. No results found for: CHOL, LDLCALC, LDLDIRECT, TRIG, HDL Abbey Oliveira CNP [facility], Heart [facility] V[facility] [address] [place] [id number] [email or web address] documented in this [id number] Evaluation note* Date Code Description Provider 10/09/2021 Z68.34 Body mass index [BMI] 34.0-34.9, adult Sly Nix DPM 10/03/2021 Z68.34 Body mass index [BMI] 34.0-34.9, adult Vlad Alaniz MD, [facility], [facility] 09/18/2021 Z91.19 Patient's noncom pliance with other medical treatment and regimen Sly Nix DPM 09/18/2021 G89.18 Other acute postprocedural p ain Sly Nix DPM 09/18/2021 Z09 Encounter for fo llow-up examination after completed treatment for conditions other than malignant neoplasm Sly Nix DPM 09/18/2021 M76.61 Achilles tendinitis, right l eg Sly Nix DPM 09/18/2021 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, right ankle Sly Nix DPM 09/18/2021 M77.31 Calcaneal spur, right foot J osepbhupendra Nix DPM 09/18/2021 M79.671 Pain in right foot Sly Nix DPM 09/18/2021 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 mellitus with diabetic polyneuropathy Sly Nix DPM 09/18/2021 Z68.34 Body mass index [BMI] 34.0-34.9, adult Sly Nix DPM 09/05/2021 Z91.19 Patient's noncom pliance with other medical treatment and regimen Sly Nix, DPM 09/05/2021 G89.18 Other acute postprocedural p ain Sly Nix, DPM 09/05/2021 Z09 Encounter for fo llow-up examination after completed treatment for conditions other than malignant neoplasm Sly Nix, DPM 09/05/2021 M76.61 Achilles tendinitis, right l eg Sly Nix, DPM 09/05/2021 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, right ankle Sly Nix, DPM 09/05/2021 M77.31 Calcaneal spur, right foot J ossantos Nix, DPM 09/05/2021 M79.671 Pain in right foot Sly Nix, DPM 09/05/2021 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 mellitus with diabetic polyneuropathy Sly De Santiago Boyd, DPM 08/25/2021 Z91.19 Patient's noncom pliance with other medical treatment and regimen Sly Nix, DPM 08/25/2021 Z09 Encounter for fo llow-up examination after completed treatment for conditions other than malignant neoplasm Sly Nix, DPM 08/25/2021 G89.18 Other acute postprocedural p ain Sly Nix, DPM 08/25/2021 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, right ankle Sly Nix, DPM 07/27/2021 M76.61 Achilles tendinitis, right l eg Sly Nix, DPM 07/27/2021 M77.31 Calcaneal spur, right foot J greg Nix, DPM 07/27/2021 M79.671 Pain in right foot Sly Nix, DPM 07/27/2021 B35.1 Tinea unguium Sly Velazquezi s, DPM 07/27/2021 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 mellitus with diabetic polyneuropathy Sly Nix, DPM 07/27/2021 M20.42 Other hammer toe (s) (acquired), left foot Sly iNx, DPM 07/27/2021 M20.41 Other hammer toe (s) (acquired), right foot Sly Nix, DPM 07/27/2021 Z68.35 Body mass index [BMI] 35.0-35.9, adult Sly Nix, DPM 07/03/2021 Z09 Encounter for fo llow-up examination after completed treatment for conditions other than malignant neoplasm Sly Nix, DPM 07/03/2021 G89.18 Other acute postprocedural p ain Sly Nix, DPM 07/03/2021 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, left ankle Sly Nix, DPM 07/03/2021 M76.62 Achilles tendinitis, left le g Sly De Santiago Boyd, DPM 07/03/2021 M77.32 Calcaneal spur, left foot Lisseth Nix, DPM 07/03/2021 M79.672 Pain in left foot Sly Nix, DPM 07/03/2021 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 mellitus with diabetic polyneuropathy Sly De Santiago Boyd, DPM 07/03/2021 Z68.35 Body mass index [BMI] 35.0-35.9, adult Sly Nix, DPM 06/20/2021 Z09 Encounter for fo llow-up examination after completed treatment for conditions other than malignant neoplasm Sly Nix, DPM 06/20/2021 G89.18 Other acute postprocedural p ain Sly Nix, DPM 06/20/2021 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, left ankle Sly Nix, DPM 06/20/2021 M76.62 Achilles tendinitis, left le g Sly Nix, DPM 06/20/2021 M77.32 Calcaneal spur, left foot Lisseth Nix, DPM 06/20/2021 M79.672 Pain in left foot Sly Nix, DPM 06/20/2021 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 mellitus with diabetic polyneuropathy Sly Nix, DPM 06/20/2021 Z68.36 Body mass index [BMI] 36.0-36.9, adult Sly Nix, DPM 06/13/2021 Z09 Encounter for fo llow-up examination after completed treatment for conditions other than malignant neoplasm Sly Nix, DPM 06/13/2021 G89.18 Other acute postprocedural p ain Sly Nix, DPM 06/13/2021 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, left ankle Sly Nix, DPM 06/13/2021 M76.62 Achilles tendinitis, left le g Sly Nix, DPM 06/13/2021 M77.32 Calcaneal spur, left foot Lisseth Nix, DPM 06/13/2021 M79.672 Pain in left foot Sly Nix, DPM 06/13/2021 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 mellitus with diabetic polyneuropathy Sly Nix, DPM 06/13/2021 I87.2 Venous insuffici ency (chronic) (peripheral) Sly Nix, DPM 06/13/2021 Z68.35 Body mass index [BMI] 35.0-35.9, adult Sly Nix, DPM 06/05/2021 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, left ankle Sly Nix, DPM 06/05/2021 M77.32 Calcaneal spur, left foot Lisseth Nix, DPM 06/05/2021 M76.62 Achilles tendinitis, left le g Sly Nix, DPM 06/05/2021 M79.672 Pain in left foot Sly Nix, DPM 05/04/2021 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, left ankle Sly De Santiago Boyd, DPM 05/04/2021 M77.32 Calcaneal spur, left foot Lisseth Nix, DPM 05/04/2021 M76.62 Achilles tendinitis, left le g Sly De Santiago Boyd, DPM 05/04/2021 M79.672 Pain in left foot Sly Nix, DPM 05/04/2021 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, right ankle Sly De Santiago Boyd, DPM 10/09/2021 M77.31 Calcaneal spur, right foot J greg De Santiago Boyd, DPM 10/09/2021 M79.671 Pain in right foot Sly Nix, DPM 10/09/2021 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 mellitus with diabetic polyneuropathy Sly De Santiago Boyd, DPM 10/09/2021 Z91.19 Patient's noncom pliance with other medical treatment and regimen Sly HernandezMiguelina Nix, DPM 10/09/2021 Z68.34 Body mass index [BMI] 34.0-34.9, adult Sly Nix, DPM 10/03/2021 Z68.34 Body mass index [BMI] 34.0-34.9, adult Vlad Alaniz MD, [facility], [facility] 09/18/2021 Z91.19 Patient's noncom pliance with other medical treatment and regimen Sly DavidMiguelina Nix, DPM 09/18/2021 G89.18 Other acute postprocedural p ain Sly Nix, DPM 09/18/2021 Z09 Encounter for fo llow-up examination after completed treatment for conditions other than malignant neoplasm Sly De Santiago Boyd, DPM 09/18/2021 M76.61 Achilles tendinitis, right l eg Sly De Santiago Boyd, DPM 09/18/2021 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, right ankle Sly De Santiago Boyd, DPM 09/18/2021 M77.31 Calcaneal spur, right foot J greg De Santiago Boyd, DPM 09/18/2021 M79.671 Pain in right foot Sly De Santiago Boyd, DPM 09/18/2021 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 mellitus with diabetic polyneuropathy Sly HernandezMiguelina Nix, DPM 09/18/2021 Z68.34 Body mass index [BMI] 34.0-34.9, adult Sly Nix, DPM 09/05/2021 Z91.19 Patient's noncom pliance with other medical treatment and regimen Sly Nix, DPM 09/05/2021 G89.18 Other acute postprocedural p ain Sly Nix, DPM 09/05/2021 Z09 Encounter for fo llow-up examination after completed treatment for conditions other than malignant neoplasm Sly Nix, DPM 09/05/2021 M76.61 Achilles tendinitis, right l eg Sly Nix, DPM 09/05/2021 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, right ankle Sly Nix, DPM 09/05/2021 M77.31 Calcaneal spur, right foot J greg De Santiago Boyd, DPM 09/05/2021 M79.671 Pain in right foot Sly Nix, DPM 09/05/2021 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 mellitus with diabetic polyneuropathy Sly Nix, DPM 08/25/2021 Z91.19 Patient's noncom pliance with other medical treatment and regimen Sly De Santiago Boyd, DPM 08/25/2021 Z09 Encounter for fo llow-up examination after completed treatment for conditions other than malignant neoplasm Sly Nix, DPM 08/25/2021 G89.18 Other acute postprocedural p ain Sly De Santiago Boyd, DPM 08/25/2021 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, right ankle Sly Nix, DPM 08/25/2021 M76.61 Achilles tendinitis, right l eg Sly Nix, DPM 08/25/2021 M77.31 Calcaneal spur, right foot J greg De Santiago Boyd, DPM 08/25/2021 M79.671 Pain in right foot Sly Nix, DPM 08/25/2021 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 mellitus with diabetic polyneuropathy Sly Nix, DPM 08/21/2021 M76.61 Achilles tendinitis, right l eg Sly Nix, DPM 08/21/2021 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, right ankle Sly Nix, DPM 08/21/2021 M77.31 Calcaneal spur, right foot J greg De Santiago Boyd, DPM 08/21/2021 M79.671 Pain in right foot Sly Nix, DPM 08/21/2021 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 mellitus with diabetic polyneuropathy Sly De Santiago Boyd, DPM 07/27/2021 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, right ankle Sly Nix, DPM 07/27/2021 M76.61 Achilles tendinitis, right l eg Sly Nix, DPM 07/27/2021 M77.31 Calcaneal spur, right foot J ossantos Nix, DPM 07/27/2021 M79.671 Pain in right foot Sly Nix, DPM 07/27/2021 B35.1 Tinea unguium Sly Newton s, DPM 07/27/2021 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 mellitus with diabetic polyneuropathy Sly Nix, DPM 07/27/2021 M20.42 Other hammer toe (s) (acquired), left foot Sly Nix, DPM 07/27/2021 M20.41 Other hammer toe (s) (acquired), right foot Sly Nix, DPM 07/27/2021 Z68.35 Body mass index [BMI] 35.0-35.9, adult Sly Nix, DPM 07/03/2021 Z09 Encounter for fo llow-up examination after completed treatment for conditions other than malignant neoplasm Sly Nix, DPM 07/03/2021 G89.18 Other acute postprocedural p ain Sly Nix, DPM 07/03/2021 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, left ankle Sly Nix, DPM 07/03/2021 M76.62 Achilles tendinitis, left le g Sly Nix, DPM 07/03/2021 M77.32 Calcaneal spur, left foot Lisseth Nix, DPM 07/03/2021 M79.672 Pain in left foot Sly Nix, DPM 07/03/2021 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 mellitus with diabetic polyneuropathy Sly Nix, DPM 07/03/2021 Z68.35 Body mass index [BMI] 35.0-35.9, adult Sly Nix, DPM 06/20/2021 Z09 Encounter for fo llow-up examination after completed treatment for conditions other than malignant neoplasm Sly Nix, DPM 06/20/2021 G89.18 Other acute postprocedural p ain Sly Nix, DPM 06/20/2021 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, left ankle Sly Nix, DPM 06/20/2021 M76.62 Achilles tendinitis, left le g Sly Nix, DPM 06/20/2021 M77.32 Calcaneal spur, left foot Lisseth Nix, DPM 06/20/2021 M79.672 Pain in left foot Sly Nix, DPM 06/20/2021 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 mellitus with diabetic polyneuropathy Sly Nix, DPM 06/20/2021 Z68.36 Body mass index [BMI] 36.0-36.9, adult Sly Nix, DPM 06/13/2021 Z09 Encounter for fo llow-up examination after completed treatment for conditions other than malignant neoplasm Sly Nix, DPM 06/13/2021 G89.18 Other acute postprocedural p ain Sly Nix, DPM 06/13/2021 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, left ankle Sly Nix, DPM 06/13/2021 M76.62 Achilles tendinitis, left le g Sly Nix, DPM 06/13/2021 M77.32 Calcaneal spur, left foot Lisseth Nix, DPM 06/13/2021 M79.672 Pain in left foot Sly Nix, DPM 06/13/2021 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 mellitus with diabetic polyneuropathy Sly Nix, DPM 06/13/2021 I87.2 Venous insuffici ency (chronic) (peripheral) Sly Nix, DPM 06/13/2021 Z68.35 Body mass index [BMI] 35.0-35.9, adult Sly Nix, DPM 06/05/2021 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, left ankle Sly Nix, DPM 06/05/2021 M77.32 Calcaneal spur, left foot Lisseth Nix, DPM 06/05/2021 M76.62 Achilles tendinitis, left le g Sly Nix, DPM 06/05/2021 M79.672 Pain in left foot Syl Nix, DPM 05/04/2021 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, left ankle Sly Nix, DPM 05/04/2021 M77.32 Calcaneal spur, left foot Lisseth Nix, DPM 05/04/2021 M76.62 Achilles tendinitis, left le g Sly Nix, DPM 05/04/2021 M79.672 Pain in left foot Sly Nix, DPM 05/04/2021 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 Work Phone: [phone] Reason for referral (narrative)* Refer to Reason for Referral Status Appt [facility] Open Repair of Achil les Tendon with Removal of Bone Spurs/Reina's Deformity with Partial Detachment and Re-Attachment of Achilles Tendon with Suture Bridge of Right Foot/Heel 08/07/2021- Per [facility] Portal, patient with active coverage. PA initiated and right foot surgery procedure codes 61146 and 28117 approved with effective dates 08/07/2021 through 11/05/2021. Auth number [id number]. mj Sent 08/21/2021 134[address] [facility] [phone] [facility] Open Repair of Achil les Tendon with Removal of Bone Spurs/Reina's Deformity with Partial Detachment and Re-Attachment of Achilles Tendon with Suture Bridge -- All of the Left Foot/Heel CPT Codes Provided by Dr. Nix: 15152, 84442 05/08/2021- Outpatient surgery procedure codes 94451 and 40451 approved with effective dates 05/08/2021 through 08/06/2021. Auth number [id number]. mj Sent 06/05/2021 [address] [facility] [phone] Naomi Lemos.P.M. Work Phone: 1(233) [phone] Reason for referral (narrative)* Refer to Reason for Referral Status Appt [facility] Open Repair of Achil les Tendon with Removal of Bone Spurs/Reina's Deformity with Partial Detachment and Re-Attachment of Achilles Tendon with Suture Bridge of Right Foot/Heel 08/07/2021- Per [facility] Portal, patient with active coverage. PA initiated and right foot surgery procedure codes 83951 and 24218 approved with effective dates 08/07/2021 through 11/05/2021. Auth number [id number]. mj Sent 08/21/2021 134[address] [facility] [phone] Naomi Lemos.P.M. 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, left ankle Sly Nix DPM 06/05/2021 M77.32 Calcaneal spur, left foot CAIO AllisonM 06/05/2021 M76.62 Achilles tendinitis, left le g Sly Nix, CAIOM 06/05/2021 M79.672 Pain in left foot CAIO VergaraM 05/04/2021 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, left ankle CAIO VergaraM 05/04/2021 M77.32 Calcaneal spur, left foot Lisseth Nix, CAIOM 05/04/2021 M76.62 Achilles tendinitis, left le g Sly Nix, DPM 05/04/2021 M79.672 Pain in left foot Sly Nix, DPM 05/04/2021 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, right ankle Sly Nix, DPM 05/04/2021 M77.31 Calcaneal spur, right foot J ossantos Nix, DPM 05/04/2021 M76.61 Achilles tendinitis, right l eg Sly Nix, DPM 05/04/2021 M79.671 Pain in right foot Sly Nix, DPM 05/04/2021 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 mellitus with diabetic polyneuropathy Sly Nix, DPM 05/04/2021 I87.2 Venous insufficiency (chroni c) (peripheral) Sly Nix, DPM 05/04/2021 Z68.35 Body mass index [BMI] 35.0-3 5.9, adult Sly Nix, DPM 03/30/2021 R23.4 Changes in skin texture Jamar Nix, DPM 03/30/2021 M79.671 Pain in right foot Sly Nix, DPM 03/30/2021 M79.672 Pain in left foot Sly Nix, DPM 03/30/2021 B35.1 Tinea unguium Sly Newton s, DPM 03/30/2021 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 mellitus with diabetic polyneuropathy Sly Nix, DPM 03/30/2021 M20.42 Other hammer toe(s) (acquire d), left foot Sly Nix, DPM 03/30/2021 M20.41 Other hammer toe(s) (acquire d), right foot Sly Nix, DPM 03/30/2021 I87.2 Venous insufficiency (chroni c) (peripheral) Sly Nix, DPM 03/30/2021 Z68.35 Body mass index [BMI] 35.0-3 5.9, adult Sly Nix, DPM 01/25/2021 G47.33 Obstructive sleep apnea (crystal lt) (pediatric) Mateo Oseguera PA-C 01/25/2021 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 Mateo Oseguera PA-C 01/25/2021 I10 Essential (primary) hyperten corinne Mateo Oseguera PA-C 01/12/2021 L30.9 Dermatitis, unspecified Jamar fan Jonnathan Boyd, DPM 01/12/2021 B35.1 Tinea unguium Sly HernandezMiguelina Aman s, DPM 01/12/2021 L60.0 Ingrowing nail Sly HernandezMiguelina Marcus rayna, DPM 01/12/2021 M79.671 Pain in right foot Sly Nix, DPM 01/12/2021 M79.672 Pain in left foot Sly HernandezMiguelina Nix, DPM 01/12/2021 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 mellitus with diabetic polyneuropathy Sly DavidMiguelina Nix, DPM 01/12/2021 M20.42 Other hammer toe(s) (acquire d), left foot Sly DavidMiguelina Nix, DPM 01/12/2021 M20.41 Other hammer toe(s) (acquire d), right foot Sly DavidMiguelina Nix, DPM 01/12/2021 R23.4 Changes in skin texture Jamar Nix, DPM 12/14/2020 M17.0 Bilateral primary osteoarthr itis of knee Thomas Silva MD 12/14/2020 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 mellitus with diabetic polyneuropathy Thomas Silva MD 12/14/2020 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 Work Phone: 1(300) [phone] Reason for referral (narrative)* Refer to Reason for Referral Status Appt [facility] Open Repair of Achil les Tendon with Removal of Bone Spurs/Reina's Deformity with Partial Detachment and Re-Attachment of Achilles Tendon with Suture Bridge -- All of the Left Foot/Heel CPT Codes Provided by Dr. Nix: 15153, 89912 05/08/2021- Outpatient surgery procedure codes 00637 and 08264 approved with effective dates 05/08/2021 through 08/06/2021. Auth number [id number]. mj Sent 06/05/[address] [place] [address] [phone] [facility] 12/26/2020- I see whe re surgery was cancelled but authorization did come through which would be valid from 12/18/2020 through 03/18/2021 for one DOS. Auth number [id number]. Just an FYI in case patient would be cleared for surgery within that date frame. mj Scheduled 12/27/2020 [address] [place] [address] [phone] Sly Nix D.P.M. Work Phone: 1(485) 755-658810-21-2021 Evaluation note* Date Code Description Provider 05/04/2021 Z68.35 Body mass index [BMI] 35.0-35.9, adult Sly Nix, [facility] 03/30/2021 R23.4 Changes in skin texture Jamar Nix, [facility] 03/30/2021 M79.671 Pain in right foot Sly Nix [facility] 03/30/2021 M79.672 Pain in left foot Sly DavidMiguelina Nix, [facility] 03/30/2021 B35.1 Tinea unguium Sly DavidMiguelina Aman s, [facility] 03/30/2021 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 mellitus with diabetic polyneuropathy Sly Nix [facility] 03/30/2021 M20.42 Other hammer toe (s) (acquired), left foot Sly DavidMiguelina Nix, [facility] 03/30/2021 M20.41 Other hammer toe (s) (acquired), right foot Sly DavidMiguelina Nix, [facility] 03/30/2021 I87.2 Venous insuffici ency (chronic) (peripheral) Sly Nix [facility] 03/30/2021 Z68.35 Body mass index [BMI] 35.0-35.9, adult Sly Nix [facility] 01/25/2021 G47.33 Obstructive slee p apnea (adult) (pediatric) Mateo Oseguera PA-C 01/25/2021 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 Mateo Oseguera PA-C 01/25/2021 I10 Essential (primary) hyperten corinne Mateo Oseguera PA-C 01/12/2021 L30.9 Dermatitis, unspecified Jamar De Santiago Boyd, DPM 01/12/2021 B35.1 Tinea unguium Sly Newton s, DPM 01/12/[address], DPM 01/12/2021 M79.671 Pain in right foot Sly Nix, DPM 01/12/2021 M79.672 Pain in left foot Sly Nix, DPM 01/12/2021 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 mellitus with diabetic polyneuropathy Sly Nix, DPM 01/12/2021 M20.42 Other hammer toe (s) (acquired), left foot Sly Nix, DPM 01/12/2021 M20.41 Other hammer toe (s) (acquired), right foot Sly Nix, DPM 01/12/2021 R23.4 Changes in skin texture Jamar meng Nix, DP 12/14/2020 M17.0 Bilateral primar y osteoarthritis of knee Thomas Silva MD 12/14/2020 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 mellitus with diabetic polyneuropathy Thomas Silva MD 12/14/2020 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 alexisulin Thomas Silva MD 11/17/2020 L84 Corns and callosities Brannon Silva MD 11/17/2020 L85.2 Keratosis puncta ta (palmaris et plantaris) Sly HernandezMiguelina Nix, DP 11/17/2020 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 mellitus with diabetic polyneuropathy Thomas Silva MD 11/17/2020 L84 Corns and callosities Sly HernandezMiguelina Nix, DP 11/17/2020 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 josue Silva MD 11/17/2020 M79.671 Pain in right foot Thomas reed MD 11/17/2020 R23.4 Changes in skin texture Jamar Nix, DP 11/17/2020 M17.0 Bilateral primar y osteoarthritis of knee Thomas Silva MD 11/17/2020 M79.671 Pain in right foot Sly HernandezMiguelina Nix, DP 11/17/2020 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 mellitus with diabetic polyneuropathy Sly De Santiago Boyd, DP 11/17/2020 L85.3 Xerosis cutis Sly Newton s, DPM 11/17/2020 M20.42 Other hammer toe (s) (acquired), left foot Sly Nix, DPM 11/17/2020 M20.41 Other hammer toe (s) (acquired), right foot Sly De Santiago Boyd, DPM 11/17/2020 Z79.4 half-way (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 of i nsulin Sly DavidMiguelina Nix, [facility] 11/15/2020 G47.33 Obstructive slee p apnea (adult) (pediatric) Vlad Alaniz MD, [facility], [facility] 11/15/2020 G47.10 Hypersomnia, unspecified Shanell Alaniz MD, [facility], [facility] 11/15/2020 G47.61 Periodic limb movement disor janee Vlad Alaniz MD, [facility], [facility] 11/15/2020 R53.83 Other fatigue Vlad Alaniz MD, [facility], [facility] 11/15/2020 I10 Essential (primary) hyperten corinne Vlad Alaniz MD, [facility], [facility] 11/15/2020 I50.22 Chronic systolic (congestive) heart failure Vlad Alaniz MD, [facility], [facility] Sly Nix, D.P.M. 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, left ankle Sly DavidMiguelina Nix, [facility] 05/04/2021 M77.32 Calcaneal spur, left foot Lisseth avalos DavidMiguelina Nix, DP 05/04/2021 M76.62 Achilles tendinitis, left le g Sly DavidMiguelina Nix, [facility] 05/04/2021 M79.672 Pain in left foot Sly DavidMiguelina Nix, [facility] 05/04/2021 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, right ankle Sly DavidMiguelina Nix, DP 05/04/2021 M77.31 Calcaneal spur, right foot J osepbhupendra Nix, DP 05/04/2021 M76.61 Achilles tendinitis, right l eg Sly Nix, DPM 05/04/2021 M79.671 Pain in right foot Sly Nix, DPM 05/04/2021 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 mellitus with diabetic polyneuropathy Sly Nix, DPM 05/04/2021 I87.2 Venous insuffici ency (chronic) (peripheral) Sly Nix, DPM 05/04/2021 Z68.35 Body mass index [BMI] 35.0-35.9, adult Sly Nix, DPM 03/30/2021 R23.4 Changes in skin texture Jamar meng Jonnathan Nix, DPM 03/30/2021 M79.671 Pain in right foot Sly Nix, DPM 03/30/2021 M79.672 Pain in left foot Sly Nix, DPM 03/30/2021 B35.1 Tinea unguium Sly HernandezMiguelina Aman s, DPM 03/30/2021 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 mellitus with diabetic polyneuropathy Sly Nix, DPM 03/30/2021 M20.42 Other hammer toe (s) (acquired), left foot Sly Nix, DPM 03/30/2021 M20.41 Other hammer toe (s) (acquired), right foot Sly Nix, DPM 03/30/2021 I87.2 Venous insuffici ency (chronic) (peripheral) Sly Nix, DPM 03/30/2021 Z68.35 Body mass index [BMI] 35.0-35.9, adult Sly Nix, DPM 01/25/2021 G47.33 Obstructive slee p apnea (adult) (pediatric) Mateo Oseguera PA-C 01/25/2021 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 Mateo Oseguera PA-C 01/25/2021 I10 Essential (primary) hyperten corinne Mateo Oseguera PA-C 01/12/2021 L30.9 Dermatitis, unspecified Jamar fan Jonnathan Nix, DPM 01/12/2021 B35.1 Tinea unguium Sly DavidMiguelina Newton s, DPM 01/12/[address], DPM 01/12/2021 M79.671 Pain in right foot Sly Nix, DPM 01/12/2021 M79.672 Pain in left foot Sly Nix, DPM 01/12/2021 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 mellitus with diabetic polyneuropathy Sly Nix, DPM 01/12/2021 M20.42 Other hammer toe (s) (acquired), left foot Sly Nix, DPM 01/12/2021 M20.41 Other hammer toe (s) (acquired), right foot Sly Nix, DPM 01/12/2021 R23.4 Changes in skin texture Jamar fan DavidMiguelina Nix, DPM 12/14/2020 M17.0 Bilateral primar y osteoarthritis of knee Thomas Silva MD 12/14/2020 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 mellitus with diabetic polyneuropathy Thomas Silva MD 12/14/2020 Z79.4 half-way (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 of i alexisulin Thomas Silva MD 11/17/2020 L84 Corns and callosities Brannon Silva MD 11/17/2020 L85.2 Keratosis puncta ta (palmaris et plantaris) Sly HernandezMiguelina Nix, DPM 11/17/2020 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 mellitus with diabetic polyneuropathy Thomas Silva MD 11/17/2020 L84 Corns and callosities Sly DavidMiguelina Nix, DPM 11/17/2020 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 Silva MD 11/17/2020 M79.671 Pain in right foot Thomas reed MD 11/17/2020 R23.4 Changes in skin texture Jamar fan DavidMiguelina Nix, DPM 11/17/2020 M17.0 Bilateral primar y osteoarthritis of knee Thomas Silva MD 11/17/2020 M79.671 Pain in right foot Sly HernandezMiguelina Nix, DPM 11/17/2020 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 mellitus with diabetic polyneuropathy Sly HernandezMiguelina Nix, DPM 11/17/2020 L85.3 Xerosis cutis Sly HernandezMiguelina Newton s, DPM 11/17/2020 M20.42 Other hammer toe (s) (acquired), left foot Sly Nix, DPM 11/17/2020 M20.41 Other hammer toe (s) (acquired), right foot Sly Nix, [facility] 11/17/2020 Z79.4 half-way (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 of i nsulin Sly Nix, [facility] 11/15/2020 G47.33 Obstructive slee p apnea (adult) (pediatric) Vlad Alaniz MD, [facility], [facility] 11/15/2020 G47.10 Hypersomnia, unspecified Shanell Alaniz MD, [facility], [facility] 11/15/2020 G47.61 Periodic limb movement disor janee Vlad Alaniz MD, [facility], [facility] 11/15/2020 R53.83 Other fatigue Vlad Alaniz MD, [facility], [facility] 11/15/2020 I10 Essential (primary) hyperten corinne Vlad Alaniz MD, [facility], [facility] 11/15/2020 I50.22 Chronic systolic (congestive) heart failure Vlad Alaniz MD, [facility], [facility] Sly Nix, D.P.M. Work Phone: [phone]) [phone] Evaluation note* Date Code Description Provider 03/30/2021 R23.4 Changes in skin texture Jamar Nix, [facility] 03/30/2021 M79.671 Pain in right foot Sly Nix, [facility] 03/30/2021 M79.672 Pain in left foot Sly Nix [facility] 03/30/2021 B35.1 Tinea unguium Sly HernandezMiguelina Aman s, [facility] 03/30/2021 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 mellitus with diabetic polyneuropathy Sly Nix [facility] 03/30/2021 M20.42 Other hammer toe (s) (acquired), left foot Sly De Santiago Boyd, [facility] 03/30/2021 M20.41 Other hammer toe (s) (acquired), right foot Sly Nix, [facility] 03/30/2021 I87.2 Venous insuffici ency (chronic) (peripheral) Sly DavidMiguelina Nix [facility] 03/30/2021 Z68.35 Body mass index [BMI] 35.0-35.9, adult Sly DavidMiguelina Nix [facility] 01/25/2021 G47.33 Obstructive slee p apnea (adult) (pediatric) Mateo Oseguera PA-C 01/25/2021 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 Mateo Oseguera PA-C 01/25/2021 I10 Essential (primary) hyperten corinne Mateo Oseguera PA-C 01/12/2021 L30.9 Dermatitis, unspecified Jamar fan DavidMiguelina Nix, DPM 01/12/2021 B35.1 Tinea unguium Sly HernandezMiguelina Newton s, DPM 01/12/2021 L60.0 [address] nail Sly DavidMiguelina way, DPM 01/12/2021 M79.671 Pain in right foot Sly HernandezMiguelina Nix, DPM 01/12/2021 M79.672 Pain in left foot Sly HernandezMiguelina Nix, DPM 01/12/2021 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 mellitus with diabetic polyneuropathy Sly DavidMiguelina Nix, DPM 01/12/2021 M20.42 Other hammer toe (s) (acquired), left foot Sly DavidMiguelina Nix, DPM 01/12/2021 M20.41 Other hammer toe (s) (acquired), right foot Sly HernandezMiguelina Nix, DPM 01/12/2021 R23.4 Changes in skin texture Jamar meng DavidMiguelina Nix, DPM 12/14/2020 M17.0 Bilateral primar y osteoarthritis of knee Thomas Silva MD 12/14/2020 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 mellitus with diabetic polyneuropathy Thomas Silva MD 12/14/2020 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 josue Silva MD 11/17/2020 L84 Corns and callosities Brannon Silva MD 11/17/2020 L85.2 Keratosis puncta ta (palmaris et plantaris) Sly Nix, DPM 11/17/2020 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 mellitus with diabetic polyneuropathy Thomas Silva MD 11/17/2020 L84 Corns and callosities Sly Nix, DPM 11/17/2020 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 josue Silva MD 11/17/2020 M79.671 Pain in right foot Thomas reed MD 11/17/2020 R23.4 Changes in skin texture Jamar Nix, DP 11/17/2020 M17.0 Bilateral primar y osteoarthritis of knee Thomas Silva MD 11/17/2020 M79.671 Pain in right foot Sly Nix, DPM 11/17/2020 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 mellitus with diabetic polyneuropathy Sly Nix, DP 11/17/2020 L85.3 Xerosis cutis Sly Newton s, DPM 11/17/2020 M20.42 Other hammer toe (s) (acquired), left foot Sly Nix, DPM 11/17/2020 M20.41 Other hammer toe (s) (acquired), right foot Sly Nix, DPM 11/17/2020 Z79.4 half-way (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 of i nsulin Sly Nix, [facility] 11/15/2020 G47.33 Obstructive slee p apnea (adult) (pediatric) Vlad Alaniz MD, [facility], [facility] 11/15/2020 G47.10 Hypersomnia, unspecified Shanell Alaniz MD, [facility], [facility] 11/15/2020 G47.61 Periodic limb movement disor janee Vlad Alaniz MD, [facility], [facility] 11/15/2020 R53.83 Other fatigue Vlad Alaniz MD, [facility], [facility] 11/15/2020 I10 Essential (primary) hyperten corinne Vlad Alaniz MD, [facility], [facility] 11/15/2020 I50.22 Chronic systolic (congestive) heart failure Vlad Alaniz MD, [facility], [facility] 11/01/2020 R23.4 Changes in skin texture Jamar Nix, DP 11/01/2020 L84 Corns and callosities Sly Nix, DP 11/01/2020 M79.671 Pain in right foot Sly Nix DPM 11/01/2020 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 mellitus with diabetic polyneuropathy Sly Nix, DP 11/01/2020 M20.42 Other hammer toe (s) (acquired), left foot Sly Nix DPM 11/01/2020 M20.41 Other hammer toe (s) (acquired), right foot Sly Nix, [facility] 11/01/2020 Z79.4 half-way (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 of i josue Heart DavidMiguelina Nix, [facility] 10/27/2020 M17.0 Bilateral primar y osteoarthritis of knee Thomas Silva MD 10/27/2020 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 mellitus with diabetic polyneuropathy Thomas Silva MD 10/27/2020 S91.301A Unspecified open wound, right foot, initial encounter Thomas Silva MD 10/13/2020 R23.4 Changes in skin texture Jamar meng HernandezMiguelina Nix, DP 10/13/2020 L84 Corns and callosities Sly HernandezMiguelina Nix, DP 10/13/2020 M79.671 Pain in right foot Sly DavidMiguelina Nix DPShanell 10/13/2020 M79.672 Pain in left foot Sly DavidCAIO Torres 10/13/2020 B35.1 Tinea unguium Sly HernandezMiguelina Aman s, DP 10/13/2020 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 mellitus with diabetic polyneuropathy Sly HernandezMiguelina Nix, JACE[facility] 10/13/2020 M20.41 Other hammer toe (s) (acquired), right foot Sly De Santiago JACEY Nix 10/13/2020 M20.42 Other hammer toe (s) (acquired), left foot Sly De Santiago CAIO Nix 10/13/2020 Z79.4 half-way (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 of i JACEY Bliss D.PGarry. Work Phone: 1([phone]) 737-356407-14-2021 Evaluation note* Date Code Description Provider 03/30/2021 Z68.35 Body mass index [BMI] 35.0-35.9, adult Sly DavidMiguelina Nix DPM 01/25/2021 G47.33 Obstructive slee p apnea (adult) (pediatric) Mateo Oseguera PA-C 01/25/2021 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 Mateo Oseguera PA-C 01/25/2021 I10 Essential (primary) hyperten corinne Mateo Oseguera PA-C 01/12/2021 L30.9 Dermatitis, unspecified Jamar Nix, DPM 01/12/2021 B35.1 Tinea unguium Sly Newton s, DPM 01/12/[address], DPM 01/12/2021 M79.671 Pain in right foot Sly Nix, DPM 01/12/2021 M79.672 Pain in left foot Sly Nix, DPM 01/12/2021 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 mellitus with diabetic polyneuropathy Sly Nix, DPM 01/12/2021 M20.42 Other hammer toe (s) (acquired), left foot Sly Nix, DPM 01/12/2021 M20.41 Other hammer toe (s) (acquired), right foot Sly Nix, DPM 01/12/2021 R23.4 Changes in skin texture Jamar meng Nix, DPM 12/14/2020 M17.0 Bilateral primar y osteoarthritis of knee Thomas Silva MD 12/14/2020 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 mellitus with diabetic polyneuropathy Thomas Silva MD 12/14/2020 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 Thomas Silva MD 11/17/2020 L84 Corns and callosities Brannon Silva MD 11/17/2020 L85.2 Keratosis puncta ta (palmaris et plantaris) Sly De Santiago Boyd, DPM 11/17/2020 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 mellitus with diabetic polyneuropathy Thomas Silva MD 11/17/2020 L84 Corns and callosities Sly HernandezMiguelina Nix, DPM 11/17/2020 Z79.4 half-way (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 of i josue Silva MD 11/17/2020 M79.671 Pain in right foot Thomas reed MD 11/17/2020 R23.4 Changes in skin texture Jamar Nix, DPM 11/17/2020 M17.0 Bilateral primar y osteoarthritis of knee Thomas Silva MD 11/17/2020 M79.671 Pain in right foot Sly De Santiago Boyd, DPM 11/17/2020 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 mellitus with diabetic polyneuropathy Sly Nix, DPM 11/17/2020 L85.3 Xerosis cutis Sly Newton s, DPM 11/17/2020 M20.42 Other hammer toe (s) (acquired), left foot Sly Nix, DPM 11/17/2020 M20.41 Other hammer toe (s) (acquired), right foot Sly Nix, DPM 11/17/2020 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 Sly Nix, DPM 11/15/2020 G47.33 Obstructive slee p apnea (adult) (pediatric) Vlad Alaniz MD, [facility], [facility] 11/15/2020 G47.10 Hypersomnia, unspecified Shanell Alaniz MD, [facility], [facility] 11/15/2020 G47.61 Periodic limb movement disor janee Vlad Alaniz MD, [facility], [facility] 11/15/2020 R53.83 Other fatigue Vlad Alaniz MD, [facility], [facility] 11/15/2020 I10 Essential (primary) hyperten corinne Vlad Alaniz MD, [facility], [facility] 11/15/2020 I50.22 Chronic systolic (congestive) heart failure Vlad Alaniz MD, [facility], [facility] 11/01/2020 R23.4 Changes in skin texture Jamar Nix, DPM 11/01/2020 L84 Corns and callosities Sly Nix, DPM 11/01/2020 M79.671 Pain in right foot Sly Nix, DPM 11/01/2020 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 mellitus with diabetic polyneuropathy Sly Nix, DPM 11/01/2020 M20.42 Other hammer toe (s) (acquired), left foot Sly Nix, DPM 11/01/2020 M20.41 Other hammer toe (s) (acquired), right foot Sly Nix, DPM 11/01/2020 Z79.4 half-way (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 of i nsulin Sly Nix, DPM 10/27/2020 M17.0 Bilateral primar y osteoarthritis of knee Thomas Silva MD 10/27/2020 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 mellitus with diabetic polyneuropathy Thomas Silva MD 10/27/2020 S91.301A Unspecified open wound, right foot, initial encounter Thomas Silva MD 10/13/2020 R23.4 Changes in skin texture Jamar Nix, DPM 10/13/2020 L84 Corns and callosities Sly Nix, DPM 10/13/2020 M79.671 Pain in right foot Sly Nix, DPM 10/13/2020 M79.672 Pain in left foot Sly Nix, DPM 10/13/2020 B35.1 Tinea unguium Sly best, DPM 10/13/2020 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 mellitus with diabetic polyneuropathy Sly Nix, DPM 10/13/2020 M20.41 Other hammer toe (s) (acquired), right foot Sly Nix DPM 10/13/2020 M20.42 Other hammer toe (s) (acquired), left foot Sly Nix, DPM 10/13/2020 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 Work Phone: [phone]) [phone] Reason for referral (narrative)* Refer to Reason for Referral Status Appt Ugo criselda [facility], [facility] 12/26/2020- I see whe re surgery was cancelled but authorization did come through which would be valid from 12/18/2020 through 03/18/2021 for one DOS. Auth number [id number]. Just an FYI in case patient would be cleared for surgery within that date frame. mj Scheduled 12/27/2020 [facility] [place] [id number] [phone] Naomi Lemos.P.M. Work Phone: [phone]) [phone] History of Past illness Narrative* Problem Noted Date Diagnosed Date Resolved Date Neuropathy 02/09/2016 08/16/2016 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 09/09/2015 08/16/2016 Chronic nausea 09/01/2015 09/01/2015 DM (diabetes mellitus), type 2, uncontrolled w/neurologic complication 03/10/2015 12/21/2015 Routine general medical exam ination at a health care facility 11/16/2010 06/20/2015 Routine gynecological examination 11/16/2010 06/20/2015 APPENDIX, MUCOCOELE 10/30/2006 03/21/20 12 Abdominal pain, left lower quadrant 10/08/2006 03/21/2012 Diabetes mellitus 08/16/2016 Overview: dx'd in 1999 Endocrinology -- [facility] [place] Unspecified disorder of joint 11/23/2016 Overview: degenerative joint disease Bilateral shoulder pain --- right > left documented as of this encounter (statuses as of 01/22/2023) [facility]07-28-2016 History of Past illness Narrative* Problem Noted Date Diagnosed Date Resolved Date Neuropathy 02/09/2016 08/16/2016 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 09/09/2015 08/16/2016 Chronic nausea 09/01/2015 09/01/2015 DM (diabetes mellitus), type 2, uncontrolled w/neurologic complication 03/10/2015 12/21/2015 Routine general medical exam ination at a health care facility 11/16/2010 06/20/2015 Routine gynecological examination 11/16/2010 06/20/2015 APPENDIX, MUCOCOELE 10/30/2006 03/21/20 12 Abdominal pain, left lower quadrant 10/08/2006 03/21/2012 Diabetes mellitus 08/16/2016 Overview: dx'd in 1999 Endocrinology -- [facility] [place] Unspecified disorder of joint 11/23/2016 Overview: degenerative joint disease Bilateral shoulder pain --- right > left documented as of this encounter (statuses as of 01/24/2023) [facility]2016 History of Past illness Narrative* Problem Noted Date Diagnosed Date Resolved Date Neuropathy 02/09/2016 08/16/2016 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 09/09/2015 08/16/2016 Chronic nausea 09/01/2015 09/01/2015 DM (diabetes mellitus), type 2, uncontrolled w/neurologic complication 03/10/2015 12/21/2015 Routine general medical exam ination at a health care facility 11/16/2010 06/20/2015 Routine gynecological examination 11/16/2010 06/20/2015 APPENDIX, MUCOCOELE 10/30/2006 03/21/20 12 Abdominal pain, left lower quadrant 10/08/2006 03/21/2012 Diabetes mellitus 08/16/2016 Overview: dx'd in 1999 Endocrinology -- [facility] [place] Unspecified disorder of joint 11/23/2016 Overview: degenerative joint disease Bilateral shoulder pain --- right > left documented as of this encounter (statuses as of 01/25/2023) [facility] History of Past illness Narrative* Problem Noted Date Diagnosed Date Resolved Date Neuropathy 02/09/2016 08/16/2016 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 09/09/2015 08/16/2016 Chronic nausea 09/01/2015 09/01/2015 DM (diabetes mellitus), type 2, uncontrolled w/neurologic complication 03/10/2015 12/21/2015 Routine general medical exam ination at a health care facility 11/16/2010 06/20/2015 Routine gynecological examination 11/16/2010 06/20/2015 APPENDIX, MUCOCOELE 10/30/2006 03/21/20 12 Abdominal pain, left lower quadrant 10/08/2006 03/21/2012 Diabetes mellitus 08/16/2016 Overview: dx'd in 1999 Endocrinology -- [facility] [place] Unspecified disorder of joint 11/23/2016 Overview: degenerative joint disease Bilateral shoulder pain --- right > left documented as of this encounter (statuses as of 01/30/2023) [facility] History of Past illness Narrative* Problem Noted Date Diagnosed Date Resolved Date Neuropathy 02/09/2016 08/16/2016 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 09/09/2015 08/16/2016 Chronic nausea 09/01/2015 09/01/2015 DM (diabetes mellitus), type 2, uncontrolled w/neurologic complication 03/10/2015 12/21/2015 Routine general medical exam ination at a health care facility 11/16/2010 06/20/2015 Routine gynecological examination 11/16/2010 06/20/2015 APPENDIX, MUCOCOELE 10/30/2006 03/21/20 12 Abdominal pain, left lower quadrant 10/08/2006 03/21/2012 Diabetes mellitus 08/16/2016 Overview: dx'd in 1999 Endocrinology -- [facility] [place] Unspecified disorder of joint 11/23/2016 Overview: degenerative joint disease Bilateral shoulder pain --- right > left documented as of this encounter (statuses as of 02/12/2023) [facility] History of Past illness Narrative* Problem Noted Date Diagnosed Date Resolved Date Neuropathy 02/09/2016 08/16/2016 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 09/09/2015 08/16/2016 Chronic nausea 09/01/2015 09/01/2015 DM (diabetes mellitus), type 2, uncontrolled w/neurologic complication 03/10/2015 12/21/2015 Routine general medical exam ination at a health care facility 11/16/2010 06/20/2015 Routine gynecological examination 11/16/2010 06/20/2015 APPENDIX, MUCOCOELE 10/30/2006 03/21/20 12 Abdominal pain, left lower quadrant 10/08/2006 03/21/2012 Diabetes mellitus 08/16/2016 Overview: dx'd in 1999 Endocrinology -- [facility] [place] Unspecified disorder of joint 11/23/2016 Overview: degenerative joint disease Bilateral shoulder pain --- right > left documented as of this encounter (statuses as of 03/02/2023) [facility]2016 History of Past illness Narrative* Problem Noted Date Diagnosed Date Resolved Date Neuropathy 02/09/2016 08/16/2016 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 09/09/2015 08/16/2016 Chronic nausea 09/01/2015 09/01/2015 DM (diabetes mellitus), type 2, uncontrolled w/neurologic complication 03/10/2015 12/21/2015 Routine general medical exam ination at a health care facility 11/16/2010 06/20/2015 Routine gynecological examination 11/16/2010 06/20/2015 APPENDIX, MUCOCOELE 10/30/2006 03/21/20 12 Abdominal pain, left lower quadrant 10/08/2006 03/21/2012 Diabetes mellitus 08/16/2016 Overview: dx'd in 1999 Endocrinology -- [facility] [place] Unspecified disorder of joint 11/23/2016 Overview: degenerative joint disease Bilateral shoulder pain --- right > left documented as of this encounter (statuses as of 03/06/2023) [facility]2016 History of Past illness Narrative* Problem Noted Date Diagnosed Date Resolved Date Neuropathy 02/09/2016 08/16/2016 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 09/09/2015 08/16/2016 Chronic nausea 09/01/2015 09/01/2015 DM (diabetes mellitus), type 2, uncontrolled w/neurologic complication 03/10/2015 12/21/2015 Routine general medical exam ination at a health care facility 11/16/2010 06/20/2015 Routine gynecological examination 11/16/2010 06/20/2015 APPENDIX, MUCOCOELE 10/30/2006 03/21/20 12 Abdominal pain, left lower quadrant 10/08/2006 03/21/2012 Diabetes mellitus 08/16/2016 Overview: dx'd in 1999 Endocrinology -- [facility] [place] Unspecified disorder of joint 11/23/2016 Overview: degenerative joint disease Bilateral shoulder pain --- right > left documented as of this encounter (statuses as of 03/15/2023) [facility]2016 History of Past illness Narrative* Problem Noted Date Diagnosed Date Resolved Date Neuropathy 02/09/2016 08/16/2016 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 09/09/2015 08/16/2016 Chronic nausea 09/01/2015 09/01/2015 DM (diabetes mellitus), type 2, uncontrolled w/neurologic complication 03/10/2015 12/21/2015 Routine general medical exam ination at a health care facility 11/16/2010 06/20/2015 Routine gynecological examination 11/16/2010 06/20/2015 APPENDIX, MUCOCOELE 10/30/2006 03/21/20 12 Abdominal pain, left lower quadrant 10/08/2006 03/21/2012 Diabetes mellitus 08/16/2016 Overview: dx'd in 1999 Endocrinology -- [facility] [place] Unspecified disorder of joint 11/23/2016 Overview: degenerative joint disease Bilateral shoulder pain --- right > left documented as of this encounter (statuses as of 03/16/2023) [facility]2016 History of Past illness Narrative* Problem Noted Date Diagnosed Date Resolved Date Neuropathy 02/09/2016 08/16/2016 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 09/09/2015 08/16/2016 Chronic nausea 09/01/2015 09/01/2015 DM (diabetes mellitus), type 2, uncontrolled w/neurologic complication 03/10/2015 12/21/2015 Routine general medical exam ination at a health care facility 11/16/2010 06/20/2015 Routine gynecological examination 11/16/2010 06/20/2015 APPENDIX, MUCOCOELE 10/30/2006 03/21/20 12 Abdominal pain, left lower quadrant 10/08/2006 03/21/2012 Diabetes mellitus 08/16/2016 Overview: dx'd in 1999 Endocrinology -- [facility]STILL[facility] [place] Unspecified disorder of joint 11/23/2016 Overview: degenerative joint disease Bilateral shoulder pain --- right > left documented as of this encounter (statuses as of 03/19/2023) [facility]07-[facility]2016 History of Past illness Narrative* Problem Noted Date Diagnosed Date Resolved Date Neuropathy 02/09/2016 08/16/2016 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 09/09/2015 08/16/2016 Chronic nausea 09/01/2015 09/01/2015 DM (diabetes mellitus), type 2, uncontrolled w/neurologic complication 03/10/2015 12/21/2015 Routine general medical exam ination at a health care facility 11/16/2010 06/20/2015 Routine gynecological examination 11/16/2010 06/20/2015 APPENDIX, MUCOCOELE 10/30/2006 03/21/20 12 Abdominal pain, left lower quadrant 10/08/2006 03/21/2012 Diabetes mellitus 08/16/2016 Overview: dx'd in 1999 Endocrinology -- [place] Unspecified disorder of joint 11/23/2016 Overview: degenerative joint disease Bilateral shoulder pain --- right > left documented as of this encounter (statuses as of 03/25/2023) [facility] History of Past illness Narrative* Problem Noted Date Diagnosed Date Resolved Date Neuropathy 02/09/2016 08/16/2016 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 09/09/2015 08/16/2016 Chronic nausea 09/01/2015 09/01/2015 DM (diabetes mellitus), type 2, uncontrolled w/neurologic complication 03/10/2015 12/21/2015 Routine general medical exam ination at a health care facility 11/16/2010 06/20/2015 Routine gynecological examination 11/16/2010 06/20/2015 APPENDIX, MUCOCOELE 10/30/2006 03/21/20 12 Abdominal pain, left lower quadrant 10/08/2006 03/21/2012 Diabetes mellitus 08/16/2016 Overview: dx'd in 1999 Endocrinology -- [place] Unspecified disorder of joint 11/23/2016 Overview: degenerative joint disease Bilateral shoulder pain --- right > left documented as of this encounter (statuses as of 03/26/2023) [facility] History of Past illness Narrative* Problem Noted Date Diagnosed Date Resolved Date Neuropathy 02/09/2016 08/16/2016 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 09/09/2015 08/16/2016 Chronic nausea 09/01/2015 09/01/2015 DM (diabetes mellitus), type 2, uncontrolled w/neurologic complication 03/10/2015 12/21/2015 Routine general medical exam ination at a health care facility 11/16/2010 06/20/2015 Routine gynecological examination 11/16/2010 06/20/2015 APPENDIX, MUCOCOELE 10/30/2006 03/21/20 12 Abdominal pain, left lower quadrant 10/08/2006 03/21/2012 Diabetes mellitus 08/16/2016 Overview: dx'd in 1999 Endocrinology -- [place] Unspecified disorder of joint 11/23/2016 Overview: degenerative joint disease Bilateral shoulder pain --- right > left documented as of this encounter (statuses as of 03/30/2023) [facility] History of Past illness Narrative* Problem Noted Date Diagnosed Date Resolved Date Neuropathy 02/09/2016 08/16/2016 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 09/09/2015 08/16/2016 Chronic nausea 09/01/2015 09/01/2015 DM (diabetes mellitus), type 2, uncontrolled w/neurologic complication 03/10/2015 12/21/2015 Routine general medical exam ination at a health care facility 11/16/2010 06/20/2015 Routine gynecological examination 11/16/2010 06/20/2015 APPENDIX, MUCOCOELE 10/30/2006 03/21/20 12 Abdominal pain, left lower quadrant 10/08/2006 03/21/2012 Diabetes mellitus 08/16/2016 Overview: dx'd in 1999 Endocrinology -- [place] Unspecified disorder of joint 11/23/2016 Overview: degenerative joint disease Bilateral shoulder pain --- right > left documented as of this encounter (statuses as of 04/04/2023) [facility] History of Past illness Narrative* Problem Noted Date Diagnosed Date Resolved Date Neuropathy 02/09/2016 08/16/2016 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 09/09/2015 08/16/2016 Chronic nausea 09/01/2015 09/01/2015 DM (diabetes mellitus), type 2, uncontrolled w/neurologic complication 03/10/2015 12/21/2015 Routine general medical exam ination at a health care facility 11/16/2010 06/20/2015 Routine gynecological examination 11/16/2010 06/20/2015 APPENDIX, MUCOCOELE 10/30/2006 03/21/20 12 Abdominal pain, left lower quadrant 10/08/2006 03/21/2012 Diabetes mellitus 08/16/2016 Overview: dx'd in 1999 Endocrinology -- [place] Unspecified disorder of joint 11/23/2016 Overview: degenerative joint disease Bilateral shoulder pain --- right > left documented as of this encounter (statuses as of 04/04/2023) [facility] History of Past illness Narrative* Problem Noted Date Diagnosed Date Resolved Date Neuropathy 02/09/2016 08/16/2016 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 09/09/2015 08/16/2016 Chronic nausea 09/01/2015 09/01/2015 DM (diabetes mellitus), type 2, uncontrolled w/neurologic complication 03/10/2015 12/21/2015 Routine general medical exam ination at a health care facility 11/16/2010 06/20/2015 Routine gynecological examination 11/16/2010 06/20/2015 APPENDIX, MUCOCOELE 10/30/2006 03/21/20 12 Abdominal pain, left lower quadrant 10/08/2006 03/21/2012 Diabetes mellitus 08/16/2016 Overview: dx'd in 1999 Endocrinology -- [place] [place] Unspecified disorder of joint 11/23/2016 Overview: degenerative joint disease Bilateral shoulder pain --- right > left documented as of this encounter (statuses as of 04/05/2023) [facility] History of Past illness Narrative* Problem Noted Date Diagnosed Date Resolved Date Neuropathy 02/09/2016 08/16/2016 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 09/09/2015 08/16/2016 Chronic nausea 09/01/2015 09/01/2015 DM (diabetes mellitus), type 2, uncontrolled w/neurologic complication 03/10/2015 12/21/2015 Routine general medical exam ination at a health care facility 11/16/2010 06/20/2015 Routine gynecological examination 11/16/2010 06/20/2015 APPENDIX, MUCOCOELE 10/30/2006 03/21/20 12 Abdominal pain, left lower quadrant 10/08/2006 03/21/2012 Diabetes mellitus 08/16/2016 Overview: dx'd in 1999 Endocrinology -- [place] [place] Unspecified disorder of joint 11/23/2016 Overview: degenerative joint disease Bilateral shoulder pain --- right > left documented as of this encounter (statuses as of 04/12/2023) [facility] History of Past illness Narrative* Problem Noted Date Diagnosed Date Resolved Date Neuropathy 02/09/2016 08/16/2016 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 09/09/2015 08/16/2016 Chronic nausea 09/01/2015 09/01/2015 DM (diabetes mellitus), type 2, uncontrolled w/neurologic complication 03/10/2015 12/21/2015 Routine general medical exam ination at a health care facility 11/16/2010 06/20/2015 Routine gynecological examination 11/16/2010 06/20/2015 APPENDIX, MUCOCOELE 10/30/2006 03/21/20 12 Abdominal pain, left lower quadrant 10/08/2006 03/21/2012 Diabetes mellitus 08/16/2016 Overview: dx'd in 1999 Endocrinology -- [place] [place] Unspecified disorder of joint 11/23/2016 Overview: degenerative joint disease Bilateral shoulder pain --- right > left documented as of this encounter (statuses as of 04/20/2023) [facility] History of Past illness Narrative* Problem Noted Date Diagnosed Date Resolved Date Neuropathy 02/09/2016 08/16/2016 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 09/09/2015 08/16/2016 Chronic nausea 09/01/2015 09/01/2015 DM (diabetes mellitus), type 2, uncontrolled w/neurologic complication 03/10/2015 12/21/2015 Routine general medical exam ination at a health care facility 11/16/2010 06/20/2015 Routine gynecological examination 11/16/2010 06/20/2015 APPENDIX, MUCOCOELE 10/30/2006 03/21/20 12 Abdominal pain, left lower quadrant 10/08/2006 03/21/2012 Diabetes mellitus 08/16/2016 Overview: dx'd in 1999 Endocrinology -- [place] Unspecified disorder of joint 11/23/2016 Overview: degenerative joint disease Bilateral shoulder pain --- right > left documented as of this encounter (statuses as of 05/01/2023) [facility] History of Past illness Narrative* Problem Noted Date Diagnosed Date Resolved Date Neuropathy 02/09/2016 08/16/2016 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 09/09/2015 08/16/2016 Chronic nausea 09/01/2015 09/01/2015 DM (diabetes mellitus), type 2, uncontrolled w/neurologic complication 03/10/2015 12/21/2015 Routine general medical exam ination at a health care facility 11/16/2010 06/20/2015 Routine gynecological examination 11/16/2010 06/20/2015 APPENDIX, MUCOCOELE 10/30/2006 03/21/20 12 Abdominal pain, left lower quadrant 10/08/2006 03/21/2012 Diabetes mellitus 08/16/2016 Overview: dx'd in 1999 Endocrinology -- [place]ST[place] Unspecified disorder of joint 11/23/2016 Overview: degenerative joint disease Bilateral shoulder pain --- right > left documented as of this encounter (statuses as of 05/02/2023) [facility] History of Past illness Narrative* Problem Noted Date Diagnosed Date Resolved Date Neuropathy 02/09/2016 08/16/2016 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 [place], [facility] [place] Unspecified disorder of joint 11/23/2016 Overview: degenerative joint disease Bilateral shoulder pain --- right > left documented as of this encounter (statuses as of 05/07/2023) [facility] note No Information to Report [facility] Discharge summary No Information to Report [employer] Evaluation note No Information to Report [facility] Evaluation note* Diagnosis Subclinical hyperthyroidism Thyrotoxicosis without mention of goiter or other cause, without mention of thyrotoxic crisis or storm [facility] Diagnosis Nonischemic cardiomyopathy (HCC)- Primary Other primary cardiomyopathies [facility]* Diagnosis Nonischemic cardiomyopathy (HCC) Other primary cardiomyopathies Dyslipidemia Other and unspecified hyperlipidemia Benign essential HTN [facility]* Date Code Description Provider 01/25/2022 G47.33 Obstructive slee p apnea (adult) (pediatric) Mateo Oseguera PA-C 01/25/2022 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 Mateo Oseguera PA-C 01/25/2022 I10 Essential (primary) hyperten corinne Mateo Oseguera PA-C 01/25/2022 Z68.36 Body mass index [BMI] 36.0-36.9, adult Mateo Oseguera PA-C 01/11/2022 M76.61 Achilles tendinitis, right l eg Sly Nix, DPShanell 01/11/2022 M24.871 Other specific j oint derangements of right ankle, not elsewhere classified Sly Nix, DPM 01/11/2022 M65.871 Other synovitis and tenosynovitis, right ankle and foot Sly Nix, DPM 01/11/2022 M25.571 Pain in right an kle and joints of right foot Sly Nix, DPM 01/11/2022 I87.2 Venous insuffici ency (chronic) (peripheral) Sly Nix, DPM 01/11/2022 R60.0 Localized edema Sly [place], DPM 01/11/2022 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 mellitus with diabetic polyneuropathy Sly Nix, DPM 12/12/2021 M24.871 Other specific j oint derangements of right ankle, not elsewhere classified Sly Nix, DPM 12/12/2021 M76.61 Achilles tendinitis, right l eg Sly Nix, DPM 12/12/2021 M65.871 Other synovitis and tenosynovitis, right ankle and foot Sly Nix, DPM 12/12/2021 M25.571 Pain in right an kle and joints of right foot Sly Nix, DPM 12/12/2021 I87.2 Venous insuffici ency (chronic) (peripheral) Sly Nix, DPM 12/12/2021 R60.0 Localized edema Sly [place], DPM 12/12/2021 B35.1 Tinea unguium Sly Newton s, DP 12/12/2021 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 mellitus with diabetic polyneuropathy Sly Nix, DPM 11/23/2021 G47.33 Obstructive slee p apnea (adult) (pediatric) Vlad Alaniz MD, [facility], [facility] 11/23/2021 G47.10 Hypersomnia, unspecified Shanell Alaniz MD, [facility], [facility] 11/23/2021 R53.81 Other malaise Vlad Alaniz MD, [facility], [facility] 11/23/2021 R53.83 Other fatigue Vlad Alaniz MD, [facility], [facility] 11/23/2021 I10 Essential (primary) hyperten corinne Vlad Alaniz MD, [facility], [facility] 11/13/2021 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, right ankle and foot Sly Nix, DPM 11/13/2021 M24.871 Other specific j oint derangements of right ankle, not elsewhere classified Sly Nix, DPM 11/13/2021 M65.871 Other synovitis and tenosynovitis, right ankle and foot Sly De Santiago Boyd DPM 11/13/2021 M25.571 Pain in right an kle and joints of right foot Sly Nix DPM 11/13/2021 R60.0 Localized edema Sly De Santiago Romero mederos, DP 11/13/2021 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 mellitus with diabetic polyneuropathy Sly De Santiago Boyd DPM 11/13/2021 Z68.34 Body mass index [BMI] 34.0-34.9, adult Sly Nix, DP 10/09/2021 G89.18 Other acute postprocedural p ain Sly De Santiago Boyd [facility] 10/09/2021 Z09 Encounter for fo llow-up examination after completed treatment for conditions other than malignant neoplasm Sly De Santiago Boyd DPM 10/09/2021 M76.61 Achilles tendinitis, right l eg Sly De Santiago Boyd, DPM 10/09/2021 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, right ankle Sly Nix DPM 10/09/2021 M77.31 Calcaneal spur, right foot J osepbhupendra Jonnathan Obyd, DP 10/09/2021 M79.671 Pain in right foot Sly De Santiago Boyd DPM 10/09/2021 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 mellitus with diabetic polyneuropathy Sly De Santiago Boyd DPM 10/09/2021 Z91.19 Patient's noncom pliance with other medical treatment and regimen Sly HernandezMiguelina Nix DPM 10/09/2021 Z68.34 Body mass index [BMI] 34.0-34.9, adult Sly HernandezMiguelina Nix, DPM 10/03/2021 Z68.34 Body mass index [BMI] 34.0-34.9, adult Vlad Alaniz MD, [facility], [facility] 09/18/2021 Z91.19 Patient's noncom pliance with other medical treatment and regimen Sly Nix, DPM 09/18/2021 G89.18 Other acute postprocedural p ain Sly Nix, DPM 09/18/2021 Z09 Encounter for fo llow-up examination after completed treatment for conditions other than malignant neoplasm Sly Nix, DPM 09/18/2021 M76.61 Achilles tendinitis, right l eg Sly Nix, DPM 09/18/2021 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, right ankle Sly De Santiago Boyd, DPM 09/18/2021 M77.31 Calcaneal spur, right foot J shannanbhupendra De Santiago Boyd, DPM 09/18/2021 M79.671 Pain in right foot Sly De Santiago Boyd, DPM 09/18/2021 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 mellitus with diabetic polyneuropathy Sly De Santiago Boyd, DPM 09/18/2021 Z68.34 Body mass index [BMI] 34.0-34.9, adult Sly De Santiago Boyd, DPM 09/05/2021 Z91.19 Patient's noncom pliance with other medical treatment and regimen Sly De Santiago Boyd, DPM 09/05/2021 G89.18 Other acute postprocedural p ain Sly Nix, DPM 09/05/2021 Z09 Encounter for fo llow-up examination after completed treatment for conditions other than malignant neoplasm Sly Nix, DPM 09/05/2021 M76.61 Achilles tendinitis, right l eg Sly Nix, DPM 09/05/2021 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, right ankle Sly De Santiago Boyd, DPM 09/05/2021 M77.31 Calcaneal spur, right foot J shannanbhupendra De Santiago Boyd, DPM 09/05/2021 M79.671 Pain in right foot Sly HernandezMiguelina Nix, DPM 09/05/2021 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 mellitus with diabetic polyneuropathy Sly HernandezMiguelina Nix, DPM 08/25/2021 Z91.19 Patient's noncom pliance with other medical treatment and regimen Sly HernandezMiguelina Nix, DPM 08/25/2021 Z09 Encounter for fo llow-up examination after completed treatment for conditions other than malignant neoplasm Sly Nix, DPM 08/25/2021 G89.18 Other acute postprocedural p ain Sly Nix, DPM 08/25/2021 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, right ankle Sly Nix, DPM 08/25/2021 M76.61 Achilles tendinitis, right l eg Sly Nix, DPM 08/25/2021 M77.31 Calcaneal spur, right foot J greg Nix, DPM 08/25/2021 M79.671 Pain in right foot Sly Nix, DPM 08/25/2021 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 mellitus with diabetic polyneuropathy Sly Nix, DPM 08/21/2021 M76.61 Achilles tendinitis, right l eg Sly Nix, DPM 08/21/2021 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 Work Phone: Evaluation note* Diagnosis Subclinical hyperthyroidism Thyrotoxicosis without mention of goiter or other cause, without mention of thyrotoxic crisis or storm [facility] Diagnosis Nonischemic cardiomyopathy (HCC)- Primary Other primary cardiomyopathies Benign essential HTN HFrEF (heart failure with reduced ejection fraction) (HCC) Heart failure with preserved ejection fraction, unspecified HF chronicity (HCC) documented [facility] this encounter [facility] noteNo assessment information [facility] Work Phone: Evaluation note* Diagnosis Dyslipidemia Other and unspecified hyperlipidemia documented in this encounter [facility] note* Diagnosis Nonischemic cardiomyopathy (HCC) Other primary cardiomyopathies documented in this encounter [facility] note* Diagnosis Encounter to establish care with new doctor- Primary Other reasons for seeking consultation Type 2 diabetes mellitus with diabetic neuropathy, with long-term current use of insulin ([facility]) Screening for HIV (human immunodeficiency virus) Special screening examination for other specified viral diseases Screening for diabetic retinopathy Screening for other eye conditions Encounter for screening mammogram for breast cancer Colon cancer screening Special screening for malignant neoplasms, colon Essential hypertension, benign Family history of colon cancer Family history of malignant neoplasm of gastrointestinal tract Obesity, Class II, BMI 35-39.9 Obesity, unspecified PAXTON (obstructive sleep apnea) Obstructive sleep apnea (adult) (pediatric) Restless leg syndrome Restless legs syndrome (RLS) GERD without esophagitis Esophageal reflux [facility] this [facility] Diagnosis NICM (nonischemic cardiomyopathy) ([facility])- Primary Other primary cardiomyopathies Cardiac resynchronization therapy defibrillator (S[employer]-D) in place Primary hypertension Unspecified essential hypertension documented [facility] this encounter [facility]* Diagnosis Type 2 diabetes mellitus with diabetic neuropathy, with long-term current use of insulin ([facility])- Primary Essential hypertension, benign Coronary artery disease involving koi heart without angina pectoris, unspecified vessel or lesion type Restless leg syndrome Restless legs syndrome (RLS) documented in this encounter [facility]* Diagnosis Restless leg syndrome Restless legs syndrome (RLS) documented in this [facility]* Diagnosis Type 2 diabetes mellitus with diabetic neuropathy, with long-term current use of insulin ([facility])- Primary Encounter for immunization Need for other specified prophylactic vaccination against single bacterial disease Medication management Encounter for long-term (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 of other medications [facility] Diagnosis Type 2 diabetes mellitus with diabetic neuropathy, with long-term current use of insulin ([facility]) documented [facility] this [facility]* Diagnosis Uncontrolled diabetes mellitus with hyperglycemia, without long-term current use of insulin ([facility])- Primary documented [facility] this [facility]* Diagnosis Type 2 diabetes mellitus with diabetic neuropathy, with long-term current use of insulin ([facility]) documented [facility] this [facility] Diagnosis Type 2 diabetes mellitus with diabetic neuropathy, with long-term current use of insulin ([facility])- Primary Depression, unspecified depression type documented in this encounter [facility]* Diagnosis Non-ischemic cardiomyopathy (HCC) [I42.8]- Primary Other primary cardiomyopathies [facility] Diagnosis Type 2 diabetes mellitus with diabetic neuropathy, with long-term current use of insulin ([facility]) [facility] Type 2 diabetes mellitus with diabetic neuropathy, with long-term current use of insulin ([facility])- Primary [facility]* Diagnosis Type 2 diabetes mellitus with diabetic neuropathy, with long-term current use of insulin ([facility])- Primary Hyperglycemia Other abnormal glucose [facility]* Diagnosis Encounter for immunization- Primary Need for other specified prophylactic vaccination against single bacterial disease Type 2 diabetes mellitus with diabetic neuropathy, with long-term current use of insulin ([facility]) [facility] Diagnosis Type 2 diabetes mellitus with diabetic neuropathy, with long-term current use of insulin ([facility])- Primary Anxiety with depression Chronic constipation Unspecified constipation Intertrigo Other specified erythematous condition Type 2 diabetes mellitus with complication, without long-term current use of insulin ([facility]) [facility]* Diagnosis Type 2 diabetes mellitus with diabetic neuropathy, with long-term current use of insulin ([facility])- Primary Preventative health care Routine general medical examination at a health care facility Food insecurity Diabetes education, encounter for Type II or unspecified type diabetes mellitus without mention of complication, not stated as uncontrolled [facility]* Diagnosis Cardiomyopathy, unspecified type (HCC)- Primary [facility]* Diagnosis GERD without esophagitis Esophageal reflux documented in [facility]* Diagnosis Type 2 diabetes mellitus with diabetic neuropathy, with long-term current use of insulin ([facility])- Primary Uses self-applied continuous glucose monitoring device Preventative health care Routine general medical examination at a health care facility Diabetes education, encounter for Type II or unspecified type diabetes mellitus without mention of complication, not stated as uncontrolled Screening for colon cancer Special screening for malignant neoplasms, colon [facility] Diagnosis Uses self-applied continuous glucose monitoring device- Primary Type 2 diabetes mellitus with diabetic neuropathy, with long-term current use of insulin ([facility]) Preventative health care Routine general medical examination at a health care facility Diabetes education, encounter for Type II or unspecified type diabetes mellitus without mention of complication, not stated as uncontrolled [facility] Diagnosis GERD without esophagitis Esophageal reflux Type 2 diabetes mellitus with diabetic neuropathy, with long-term current use of insulin (HCC) documented [facility] Diagnosis Type 2 diabetes mellitus with diabetic neuropathy, with long-term current use of insulin (HCC) documented [facility] Diagnosis Type 2 diabetes mellitus with diabetic neuropathy, with long-term current use of insulin (HCC)- Primary [facility] Diagnosis Type 2 diabetes mellitus with diabetic neuropathy, with long-term current use of insulin (HCC)- Primary Dyspepsia Dyspepsia and other specified disorders of function of stomach Nausea Nausea alone documented [facility] Diagnosis Type 2 diabetes mellitus with diabetic neuropathy, with long-term current use of insulin (HCC)- Primary Encounter for screening mammogram for breast cancer Encounter for behavioral health screening Class 2 obesity with body mass index (BMI) of 35.0 to 35.9 in adult, unspecified obesity type, unspecified whether serious comorbidity present Preventative health care Routine general medical examination at a health care facility Uses self-applied continuous glucose monitoring device Diabetes education, encounter for Type II or unspecified type diabetes mellitus without mention of complication, not stated as uncontrolled Counseling and coordination of care Other specified counseling [facility] Diagnosis Restless leg syndrome Restless legs syndrome (RLS) Coronary artery disease involving koi heart without angina pectoris, unspecified vessel or lesion type documented [facility] Diagnosis Type 2 diabetes mellitus with diabetic neuropathy, with long-term current use of insulin (HCC) documented [facility] Diagnosis Type 2 diabetes mellitus with diabetic neuropathy, with long-term current use of insulin (HCC) documented [facility] Diagnosis Type 2 diabetes mellitus with diabetic neuropathy, with long-term current use of insulin ([facility])- Primary Uses self-applied continuous glucose monitoring device Diabetes education, encounter for Type II or unspecified type diabetes mellitus without mention of complication, not stated as uncontrolled Encounter for medication counseling Other specified counseling Preventative health care Routine general medical examination at a health care facility Complex care coordination [facility] Diagnosis Medication management- Primary Encounter for long-term (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 of other medications [facility] Diagnosis Medication monitoring encounter- Primary Encounter for therapeutic drug monitoring Depression, unspecified depression type Type 2 diabetes mellitus with diabetic neuropathy, with long-term current use of insulin (HCC) Coronary artery disease involving koi heart without angina pectoris, unspecified vessel or lesion type documented [facility] Diagnosis Medication management- Primary Encounter for long-term (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 of other medications Coronary artery disease involving koi heart without angina pectoris, unspecified vessel or lesion type Type 2 diabetes mellitus with diabetic neuropathy, with long-term current use of insulin (HCC) documented [facility] this [facility] No Information to Report [facility] Effective Measure [facility] Hospital Discharge instructions Additional Inst[facility] Discharge instructions Additional Instructions For today, leave the dressing in place until tomorrow morning. Then change at least once daily, or more often if the dressing is bloody/dirty. Cleanse gently at least once daily, make sure you are looking at the wound every day to look for signs of infection. Whenever you placed a new dressing, place antibiotic ointment and you may reuse the yellow iodoform gauze against the skin followed by clean gauze and a wrap.[facility] Work Phone: Procedure note No Information to Report [facility] [employer] [facility] Progress note No Information to Report [facility] Effective Measure [facility] Reason for referral (narrative)* Outpatient Procedure (Routine) - Pending Review Specialty Diagnoses / Procedures Referred By Fred t Referred To Contact [facility] Diagnoses Screening for colon cancer Procedures COLONOSCOPY SCREENING COLONOSCOPY FLX DX W/COLLJ SPEC WHEN Homar Lora MD [address] [place] [address] [facility] [place] [address] Referral ID Status Reason Start Date Expiration Date Visits Requested Visits Authorized [id number] Pending Review Auto-Generat ed Referral 10/30/2023 10/29/2024 1 1 [facility] Diagnostic Procedure Only (Routine) - New Request Specialty Diagnoses / Procedures Referred By Fred t Referred To Contact [facility] Diagnoses Encounter for screening mammogram for breast cancer Procedures S[place] SCREENING W LANEY SCREENING DIGITAL BREAST TOMOSYNTHESIS BI SCREENING MAMMOGRAPHY BI 2-VIEW BREAST INC JUAN PABLO Vasques, Homar David MD [address] [place] [address] [facility] [address] [place] [address] Referral ID Status Reason Start Date Expiration Date Visits Requested Visits Authorized [id number] New Request Auto-Generat ed Referral 01/29/2024 02/27/2025 1 1 [facility] Summary Purpose Family History No Family History Records Found Relationship Condition Age at Onset Recorded Date/T bob father Cardiac disease Unknown Myocardial infarction Unknown Coronary artery disease Unknown mother Coronary artery disease Unknown Cardiac disease Unknown Relationship Condition Age at Onset Recorded Date/T bob father Cardiac disease Unknown Myocardial infarction Unknown Coronary artery disease Unknown mother Coronary artery disease Unknown Cardiac disease Unknown Malignant neoplasm Unknown grandmother Malignant neoplasm of colon Unknown daughter Malignant neoplasm of breast Unknown Advance Directives No Advanced Directives Records FoundDocuments on File Type Date Recorded Patient Quality Assurance Supervisor Chassis Expl anation Advance Directives and Living Will Power of Network Operations Project Manager Documents on File Type Date Recorded Patient Quality Assurance Supervisor Chassis Expl anation Advance Directives and Living Will Documents on File Type Date Recorded Patient Quality Assurance Supervisor Chassis Expl anation Advance Directives and Living Will Documents on File Type Date Recorded Patient Quality Assurance Supervisor Chassis Expl anation Advance Directives and Living Will Power of Network Operations Project Manager DNR Documentation Advance Directive Response Recorded Date/ Time Advance Directives No August 10, 2021 1:29pm Advance Directive Response Recorded Date/ Time Advance Directives No April 19, 2013 2:19am Living Will No October 06, 2023 1:26pm Power of Network Operations Project Manager No October 05 1:26pm Advance Directive Response Recorded Date/ Time Living Will No January 11, 2024 11:57pm Do you have a Healthcare Power of Network Operations Project Manager? No January 11, 2024 11:57pm Do you have a Healthcare Power of Network Operations Project Manager? No November 07, 2024 7:34pm Do you have a Healthcare Power of Network Operations Project Manager? No November 20, 2024 2:18pm Advance Directives No April 19, 2013 2:19am Advance Directive Response Recorded Date/ Time Living Will No January 11, 2024 11:57pm Do you have a Healthcare Power of Network Operations Project Manager? No January 11, 2024 11:57pm Do you have a Healthcare Power of Network Operations Project Manager? No November 07, 2024 7:34pm Do you have a Healthcare Power of Network Operations Project Manager? No November 20, 2024 7:04pm Advance Directives No April 19, 2013 2:19am Advance Directive Response Recorded Date/ Time Living Will No January 11, 2024 11:57pm Do you have a Healthcare Power of Network Operations Project Manager? No January 11, 2024 11:57pm Do you have a Healthcare Power of Network Operations Project Manager? No November 07, 2024 7:34pm Do you have a Healthcare Power of Network Operations Project Manager? No November 20, 2024 7:04pm Do you have a Healthcare Power of Network Operations Project Manager? No November 28, 2024 12:28am Advance Directives No April 19, 2013 2:19am Instructions * Patient Instructions* Anali Wilson LPN - 07/28/2019 1:20 PM EST Preventing Osteoporosis: Care Instructions Your Care Instructions Osteoporosis means the bones are weak and thin enough that they can break easily. The older you are, the more likely you are to get osteoporosis. But with plenty of calcium, vitamin D, and exercise, you can help prevent osteoporosis. The preteen and teen years are a jefferson time for bone building. With the help of calcium, vitamin D, and exercise in those early years and beyond, the bones reach their peak density and strength by age 30. After age 30, your bones naturally start to thin and weaken. The stronger your bones are at around age 30, the lower your risk for osteoporosis. But no matter what your age and risk are, your bones still need calcium, vitamin D, and exercise to stay strong. Also avoid smoking, and limit alcohol. Smoking and heavy alcohol use can make your bones thinner. Talk to your doctor about any special risks you might have, such as having a close relative with osteoporosis or taking a medicine that can weaken bones. Your doctor can tell you the best ways to protect your bones from thinning. Follow-up care is a jefferson part of your treatment and safety. Be sure to make and go to all appointments, and call your doctor if you are having problems. It's also a good idea to know your test resultsand keep a list of the medicines you take. How can you care for yourself at home? Get enough calcium and vitamin D. The [place] [employer] recommends adults younger than age 51 need 1,000 mg of calcium and 600 IU of vitamin D each day. Women ages 51 to 70 need 1,200 mg of calcium and 600 IU of vitamin D each day. Men ages 51 to 70 need 1,000 mg of calcium and 600 IU of vitamin D each day. Adults 71 and older need 1,200 mg of calcium and 800 IU of vitamin D each day. ? Eat foods rich in calcium, like yogurt, cheese, milk, and dark green vegetables. ? Eat foods rich in vitamin D, like eggs, fatty fish, cereal, and fortified milk. ? Get some sunshine. Your body uses sunshine to make its own vitamin D. The safest time to be out in the sun is before 10 a.m. or after 3 p.m. Avoid getting sunburned. Sunburn can increase your risk of skin cancer. ? Talk to your doctor about taking a calcium plus vitamin D supplement. Ask about what type of calcium is right for you, and how much to take at a time. Adults ages 19 to 50 should not get more than 2,500 mg of calcium and 4,000 IU of vitamin D each day, whether it is from supplements and/or food. Adults ages 51 and older should not get more than 2,000 mg of calcium and 4,000 IU of vitamin D eachday from supplements and/or food. Get regular bone-building exercise. Weight-bearing and resistance exercises keep bones healthy by working the muscles and bones against gravity. Start out at an exercise level that feels right for you. Add a little at a time until you can do the following: ? Do 30 minutes of weight-bearing exercise on most days of the week. Walking, jogging, stair climbing, and dancing are good choices. ? Do resistance exercises with weights or elastic bands 2 to 3 days a week. Limit alcohol. Drink no more than 1 alcohol drink a day if you are a woman. Drink no more than 2 alcohol drinks a day if you are a man. Do not smoke. Smoking can make bones thin faster. If you need help quitting, talk to your doctor about stop-smoking programs and medicines. These can increase your chances of quitting for good. When should you call for help? Watch closely for changes in your health, and be sure to contact your doctor if you have any problems. Where can you learn more? Go to https://www.[employer].net/patientEd Enter S618 in the search box to learn more about Preventing Osteoporosis: Care Instructions. Current as of: February 17, 2019 Content Version: 12.3 [employer]. Care instructions adapted under license by your healthcare professional. If you have questions about a medical condition or this instruction, always ask your healthcare professional. [employer] disclaims any warranty or liability for your use of this information. Food as Fuel: Care Instructions Your Care Instructions A healthy, balanced diet gives your body nutrients. Nutrients are like fuel for your body. They give you energy. And they keep your heart beating, your brain active, and your muscles working. They also help to build and strengthen bones, muscles, and other body tissues. Your body needs three major nutrients for energy. These are carbohydrate, protein, and fat. Carbohydrate provides energy for your brain, muscles, heart, and lungs. It is found in bread, cereal, rice, pasta, fruits, vegetables, milk, yogurt, and sugar. Protein provides energy and helps build and repair your body's cells. It is found in meat, poultry,fish, cooked dry beans, cheese, tofu and other soy products, nuts and seeds, and milk and milk products. Fat provides energy, helps build the covering around nerves in your body, and helps make hormones. Fat is found in butter, margarine, oil, mayonnaise, salad dressing, and nuts. It is also found in most foods that come from animals, such as meat and milk products. Many foods also have fat added to them. Your body needs all three of these nutrients to be healthy. If you choose a good mix of foods, you can help your body get the right amounts of carbohydrate, protein, and fat. It can also keep you at a healthy weight. Follow-up care is a jefferson part of your treatment and safety. Be sure to make and go to all appointments, and call your doctor if you are having problems. It's also a good idea to know your test resultsand keep a list of the medicines you take. How can you care for yourself at home? Eat a balanced diet Try to eat variety of healthy foods every day. These include: ? 5 to 8 ounces of bread, cereal, crackers, rice, or pasta. An ounce is about 1 slice of bread, cupof breakfast cereal, or cup of cooked rice, cereal, or pasta. Choose whole-grain products for at least half of your grain servings. ? 2 to 3 cups of vegetables. Be sure to include: Dark green vegetables such as broccoli and spinach. [place] vegetables such as carrots and sweet potatoes. ? 1 to 2 cups of fresh, frozen, or canned fruit. A banana, an orange, or a large apple equals 1 cup. ? 3 cups of nonfat or low-fat milk, yogurt, or other milk products. ? 5 to 6 ounces of protein foods. These include chicken, fish, lean meat, beans, nuts, and seeds. One egg equals 1 ounce of meat, poultry, or fish. A cup of cooked beans equals 2 ounces of protein. Stay fueled all day Start your day with breakfast. If you don't have time to sit down for a bowl of cereal in the morning, try something that you can eat on the go. Try a piece of whole wheat bread with peanut butter or a container of yogurt with frozen berries mixed in. Eat regularly scheduled meals and snacks. If you miss a meal, you may overeat at the next meal. Or you may choose a less healthy snack. Drink enough water. (If you have kidney, heart, or liver disease and have to limit fluids, talk with your doctor before you increase your fluid intake.) Where can you learn more? Go to https://www.[employer].net/patientEd. Enter Z059 in the search box to learn more about Food as Fuel: Care Instructions. Current as of: May 21, 2018 Content Version: 12.2 5328-5158 [employer]. Care instructions adapted under license by your healthcare professional. If you have questions about a medical condition or this instruction, always ask your healthcare professional. [employer] disclaims any warranty or liability for your use of this information. Learning About Physical Activity What is physical activity? Physical activity is any kind of activity that gets your body moving. The types of physical activity that can help you get fit and stay healthy include: Aerobic or cardio activities that make your heart beat faster and make you breathe harder, such as brisk walking, riding a bike, or running. Aerobic activities strengthen your heart and lungs and build up your endurance. Strength training activities that make your muscles work against, or resist, something, such as lifting weights or doing push-ups. These activities help tone and strengthen your muscles. Stretches that allow you to move your joints and muscles through their full range of motion. Stretching helps you be more flexible and avoid injury. What are the benefits of physical activity? Being active is one of the best things you can do to get fit and stay healthy. It helps you to: Feel stronger and have more energy to do all the things you like to do. Focus better at school or work and perform better in sports. Feel, think, and sleep better. Reach and stay at a healthy weight. Lose fat and build lean muscle. Lower your risk for serious health problems. Keep your bones, muscles, and joints strong. Being fit lets you do more physical activity. And it lets you work out harder without as much effort. How can you make physical activity part of your life? Get at least 30 minutes of exercise on most days of the week. Walking is a good choice. You also may want to do other activities, such as running, swimming, cycling, or playing tennis or team sports. Pick activities that you like ones that make your heart beat faster, your muscles stronger, and your muscles and joints more flexible. If you find more than one thing you like doing, do them all. Youdon't have to do the same thing every day. Get your heart pumping every day. Any activity that makes your heart beat faster and keeps it at that rate for a while counts. Here are some great ways to get your heart beating faster: Go for a brisk walk, run, or bike ride. Go for a hike or swim. Go in-line skating. Play a game of touch football, basketball, or soccer. Ride a bike. Play tennis or racquetball. Climb stairs. Even some retail special event associate can be aerobic just do them at a faster pace. Vacuuming, raking or mowing the lawn, sweeping the garage, and washing and waxing the car all can help get your heart rate up. Strengthen your muscles during the week. You don't have to lift heavy weights or grow big, bulky muscles to get stronger. Doing a few simple activities that make your muscles work against, or resist, something can help you get stronger. For example, you can: Do push-ups or sit-ups, which use your own body weight as resistance. Lift weights or dumbbells or use stretch bands at home or in a gym or community center. Stretch your muscles often. Stretching will help you as you become more active. It can help you stay flexible, loosen tight muscles, and avoid injury. It can also help improve your balance and posture and can be a great way to relax. Be sure to stretch the muscles you'll be using when you work out. It's best to warm your muscles slightly before you stretch them. Walk or do some other light aerobic activity for a few minutes, and then start stretching. When you stretch your muscles: Do it slowly. Stretching is not about going fast or making sudden movements. Don't push or bounce during a stretch. Hold each stretch for at least 15 to 30 seconds, if you can. You should feel a stretch in the muscle, but not pain. Breathe out as you do the stretch. Then breathe in as you hold the stretch. Don't hold your breath. If you're worried about how more activity might affect your health, have a checkup before you start. Follow any special advice your doctor gives you for getting a smart start. Where can you learn more? Go to https://www.[employer].net/patientEd. Enter W332 in the search box to learn more about Learning About Physical Activity. Current as of: November 16, 2018 Content Version: 12.2 3209-1827 [employer]. Care instructions adapted under license by your healthcare professional. If you have questions about a medical condition or this instruction, always ask your healthcare professional. [employer] disclaims any warranty or liability for your use of this information. Breast Self-Exam: Care Instructions Your Care Instructions A breast self-exam is when you check your breasts for lumps or changes. This regular exam helps youlearn how your breasts normally look and feel. Most breast problems or changes are not because of cancer. Breast self-exam is not a substitute for a mammogram. Having regular breast exams by your doctor and regular mammograms improve your chances of finding any problems with your breasts. Some women set a time each month to do a [id number] breast self-exam. Other women like a less formal system. They might look at their breasts as they brush their teeth, or feel their breasts once in a while in the shower. If you notice a change in your breast, tell your doctor. Follow-up care is a jefferson part of your treatment and safety. Be sure to make and go to all appointments, and call your doctor if you are having problems. It's also a good idea to know your test resultsand keep a list of the medicines you take. How do you do a breast self-exam? The best time to examine your breasts is usually one week after your menstrual period begins. Your breasts should not be tender then. If you do not have periods, you might do your exam on a day of the month that is easy to remember. To examine your breasts: ? Remove all your clothes above the waist and lie down. When you are lying down, your breast tissuespreads evenly over your chest wall, which makes it easier to feel all your breast tissue. ? Use the pads not the fingertips of the 3 middle fingers of your left hand to check your right breast. Move your fingers slowly in small coin-sized circles that overlap. ? Use three levels of pressure to feel of all your breast tissue. Use light pressure to feel the tissue close to the skin surface. Use medium pressure to feel a little deeper. Use firm pressure to feel your tissue close to your breastbone and ribs. Use each pressure level to feel your breast tissuebefore moving on to the next spot. ? Check your entire breast, moving up and down as if following a strip from the collarbone to the bra line, and from the armpit to the ribs. Repeat until you have covered the entire breast. ? Repeat this procedure for your left breast, using the pads of the 3 middle fingers of your right hand. To examine your breasts while in the shower: ? Place one arm over your head and lightly soap your breast on that side. ? Using the pads of your fingers, gently move your hand over your breast (in the strip pattern described above), feeling carefully for any lumps or changes. ? Repeat for the other breast. Have your doctor inspect anything you notice to see if you need further testing. Where can you learn more? Go to https://www.[employer].net/patientEd. Enter P148 in the search box to learn more about Breast Self-Exam: Care Instructions. Current as of: July 02, 2018 Content Version: 12.20055396-6435 [employer]. Care instructions adapted under license by your healthcare professional. If you have questions about a medical condition or this instruction, always ask your healthcare professional. [employer] disclaims any warranty or liability for your use of this information. Body Mass Index: Care Instructions Your Care Instructions Body mass index (BMI) can help you see if your weight is raising your risk for health problems. It uses a formula to compare how much you weigh with how tall you are. A BMI lower than 18.5 is considered underweight. A BMI between 18.5 and 24.9 is considered healthy. A BMI between 25 and 29.9 is considered overweight. A BMI of 30 or higher is considered obese. If your BMI is in the normal range, it means that you have a lower risk for weight-related health problems. If your BMI is in the overweight or obese range, you may be at increased risk for weight-related health problems, such as high blood pressure, heart disease, stroke, arthritis or joint pain, and diabetes. If your BMI is in the underweight range, you may be at increased risk for health problems such as fatigue, lower protection (immunity) against illness, muscle loss, bone loss, hair loss,and hormone problems. BMI is just one measure of your risk for weight-related health problems. You may be at higher risk for health problems if you are not active, you eat an unhealthy diet, or you drink too much alcohol or use tobacco products. Follow-up care is a jefferson part of your treatment and safety. Be sure to make and go to all appointments, and call your doctor if you are having problems. It's also a good idea to know your test resultsand keep a list of the medicines you take. How can you care for yourself at home? Practice healthy eating habits. This includes eating plenty of fruits, vegetables, whole grains, lean protein, and low-fat dairy. If your doctor recommends it, get more exercise. Walking is a good choice. Bit by bit, increase theamount you walk every day. Try for at least 30 minutes on most days of the week. Do not smoke. Smoking can increase your risk for health problems. If you need help quitting, talk to your doctor about stop-smoking programs and medicines. These can increase your chances of quittingfor good. Limit alcohol to 2 drinks a day for men and 1 drink a day for women. Too much alcohol can cause health problems. If you have a BMI higher than 25 Your doctor may do other tests to check your risk for weight-related health problems. This may include measuring the distance around your waist. A waist measurement of more than 40 inches in men or 35 inches in women can increase the risk of weight-related health problems. Talk with your doctor about steps you can take to stay healthy or improve your health. You may needto make lifestyle changes to lose weight and stay healthy, such as changing your diet and getting regular exercise. If you have a BMI lower than 18.5 Your doctor may do other tests to check your risk for health problems. Talk with your doctor about steps you can take to stay healthy or improve your health. You may needto make lifestyle changes to gain or maintain weight and stay healthy, such as getting more healthyfoods in your diet and doing exercises to build muscle. Where can you learn more? Go to https://www.[employer].net/patientEd. Enter S176 in the search box to learn more about Body Mass Index: Care Instructions. Current as of: October 09, 2018 Content Version: 12.2 0458-7607 [employer]. Care instructions adapted under license by your healthcare professional. If you have questions about a medical condition or this instruction, always ask your healthcare professional. [employer] disclaims any warranty or liability for your use of this information. documented in this encounter* Patient Instructions* Nicole Rivera MA - 08/18/2019 8:15 AM EST Food as Fuel: Care Instructions Your Care Instructions A healthy, balanced diet gives your body nutrients. Nutrients are like fuel for your body. They give you energy. And they keep your heart beating, your brain active, and your muscles working. They also help to build and strengthen bones, muscles, and other body tissues. Your body needs three major nutrients for energy. These are carbohydrate, protein, and fat. Carbohydrate provides energy for your brain, muscles, heart, and lungs. It is found in bread, cereal, rice, pasta, fruits, vegetables, milk, yogurt, and sugar. Protein provides energy and helps build and repair your body's cells. It is found in meat, poultry,fish, cooked dry beans, cheese, tofu and other soy products, nuts and seeds, and milk and milk products. Fat provides energy, helps build the covering around nerves in your body, and helps make hormones. Fat is found in butter, margarine, oil, mayonnaise, salad dressing, and nuts. It is also found in most foods that come from animals, such as meat and milk products. Many foods also have fat added to them. Your body needs all three of these nutrients to be healthy. If you choose a good mix of foods, you can help your body get the right amounts of carbohydrate, protein, and fat. It can also keep you at a healthy weight. Follow-up care is a jefferson part of your treatment and safety. Be sure to make and go to all appointments, and call your doctor if you are having problems. It's also a good idea to know your test resultsand keep a list of the medicines you take. How can you care for yourself at home? Eat a balanced diet Try to eat variety of healthy foods every day. These include: ? 5 to 8 ounces of bread, cereal, crackers, rice, or pasta. An ounce is about 1 slice of bread, cupof breakfast cereal, or cup of cooked rice, cereal, or pasta. Choose whole-grain products for at least half of your grain servings. ? 2 to 3 cups of vegetables. Be sure to include: Dark green vegetables such as broccoli and spinach. [place] vegetables such as carrots and sweet potatoes. ? 1 to 2 cups of fresh, frozen, or canned fruit. A banana, an orange, or a large apple equals 1 cup. ? 3 cups of nonfat or low-fat milk, yogurt, or other milk products. ? 5 to 6 ounces of protein foods. These include chicken, fish, lean meat, beans, nuts, and seeds. One egg equals 1 ounce of meat, poultry, or fish. A cup of cooked beans equals 2 ounces of protein. Stay fueled all day Start your day with breakfast. If you don't have time to sit down for a bowl of cereal in the morning, try something that you can eat on the go. Try a piece of whole wheat bread with peanut butter or a container of yogurt with frozen berries mixed in. Eat regularly scheduled meals and snacks. If you miss a meal, you may overeat at the next meal. Or you may choose a less healthy snack. Drink enough water. (If you have kidney, heart, or liver disease and have to limit fluids, talk with your doctor before you increase your fluid intake.) Where can you learn more? Go to https://www.[employer].net/patientEd Enter Z059 in the search box to learn more about Food as Fuel: Care Instructions. Current as of: March 04, 2019 Content Version: 12.3 7179-4394 [employer]. Care instructions adapted under license by your healthcare professional. If you have questions about a medical condition or this instruction, always ask your healthcare professional. [employer] disclaims any warranty or liability for your use of this information. documented in this encounter* Patient Instructions* Nilam Garrett RN - 08/21/2019 10:47 AM EST 1. [facility] will call you to schedule your ECHOCARDIOGRAM. If you have not received a phone call in approximately 7-10 days to schedule your procedure, please call [facility] Central Scheduling at [phone] or our offce at [phone]. Transthoracic Echocardiogram: About This Test What is it? An echocardiogram (also called an echo) uses sound waves to make an image of your heart. A device called a transducer sends sound waves that echo off your heart and back to the transducer. These echoes are turned into moving pictures of your heart that can be seen on a video screen. In a transthoracic echocardiogram (TTE), the transducer is moved across your chest or belly. A TTE is the most common type of echocardiogram. Why is this test done? This test is done to check your heart health. It's used for many reasons. Your doctor may do an echocardiogram to: Check a heart murmur. Look for the cause of shortness of breath or unexplained chest pain or pressure. Check how well your heart is pumping blood. Check to see how well your heart valves are working. Look for blood clots inside your heart. What happens during the test? You will remove your clothes above your waist. You may be given a cloth or paper covering to use during the test. You will lie on your back or on your left side on a bed or table. You may receive medicine through a vein (intravenously, or IV). The IV can be used to give you a contrast material, which helps your doctor get good views of your heart. Small pads or patches (electrodes) will be taped to your arms and legs to record your heart rate during the test. A small amount of gel will be rubbed on the side of your chest to help picking table worker the sound waves. The transducer will be pressed firmly against your chest and moved slowly back and forth. It is usually moved to different areas on your chest or belly to get specific views of your heart. You will be asked to do several things, such as hold very still, breathe in and out very slowly, hold your breath, or lie on your left side. This test usually takes 30 to 60 minutes. What else should you know about the test? You will not have any pain from an echocardiogram. You may have a brief, sharp pain if an intravenous (IV) needle is placed in a vein in your arm. No electricity passes through your body during the test. There is no danger of getting an electrical shock. You do not receive any radiation. What happens after the test? You will probably be able to go home right away. You can go back to your usual activities right away. Follow-up care is a jefferson part of your treatment and safety. Be sure to make and go to all appointments, and call your doctor if you are having problems. It's also a good idea to keep a list of the medicines you take. Ask your doctor when you can expect to have your test results. Where can you learn more? Log into your personal health record on https://[employer] and enter E130 in the Education box to learn more about Transthoracic Echocardiogram: About This Test. Current as of: October 21, 2018 Content Version: 12.3 4924-6374 [employer]. Care instructions adapted under license by your healthcare professional. If you have questions about a medical condition or this instruction, always ask your healthcare professional. [employer] disclaims any warranty or liability for your use of this information. documented in this encounter* Patient Instructions* Abbey Oliveira CNP - 12/15/2019 11:44 AM EDT 1. Stop ENALAPRIL 2. Start losartan 12.5 mg once daily. 3. Increase lasix to 40 mg twice daily 4. Labs before your follow up appt 5. Follow up in 2 weeks or sooner if needed. documented in this encounter* Patient Instructions* Marlene Jacob RN - 12/29/2019 11:08 AM EDT 1. Have your labs complete tomorrow (12/30/19). Abbey Oliveira CNP will call you with the results and further medication direction. 2. [facility] will call you regarding your overnight pulse oximetry. If you have not received a phone call in approximately 3-5 days, please call them at at [phone] or our offce at [phone]. documented in this encounter* Patient Instructions* Marlene Jacob RN - 04/05/2020 2:57 PM EDT 1. It has been recommended that you follow up with our office in 4-months. Our schedule is not available for that time frame. Therefore, I have placed a reminder letter to be sent to you via the mail. This should reach you approximately 1-month prior to when you are projected to be scheduled. Please call our office @ [phone] at that time to schedule your appointment. You may follow up sooner, if needed. documented in this encounter* Patient Instructions* Marlene Jacob RN - 10/07/2020 2:54 PM EDT 1. You are cleared for surgery. 2. It has been recommended that you follow up with our office in July 2021. Our schedule is not available for that time frame. Therefore, I have placed a reminder phone call. This should occur approximately 1-month prior to when you are projected to be scheduled. Please call our office @ [phone] at that time to schedule your appointment. You may follow up sooner, if needed. documented in this encounter History of Present Illness * Keshia Sterling APRN CNM - 07/28/2019 1:20 PM EST Subjective Patient ID: Michelle Jules is a 54 y.o. female. HPI Here for annual exam without complaints. Hysterectomy for DUB 2005. No HRT. Hx of 1 abnormal pap, repeat pap normal. No history of STD's, abnormal breast exam, abnormal paps, or cancer. Mammogram 06/02. Colonoscopy 12/28/16. Negative history of . Mother breast cancer 50s. Negative family history of ovarian or uterine cancer. Denies domestic violence. Adequate calcium intake. Walking daily for exercise. Body mass index is 33.43 kg/m . been counseled in the office during this visit Patient Active Problem List Diagnosis Type 2 diabetes mellitus without complication, without long-term current use of insulin ([facility]) Class 1 obesity without serious comorbidity with body mass index (BMI) of 34.0 to 34.9 in adult, unspecified obesity type Allergies Allergen Reactions Metformin Itching Simvastatin Other (See Comments) myalgia Latex Rash Social History Socioeconomic History Marital status: Spouse name: Not on file Number of children: Not on file Years of education: Not on file Highest education level: Not on file Occupational History Not on file Tobacco Use Smoking status: Never Smoker Smokeless tobacco: Never Used Substance and Sexual Activity Alcohol use: Yes Frequency: Never Comment: rare Drug use: Never Sexual activity: Not Currently Partners: Male Comment: Age of intercourse: 18, Lifetime: 5 Social History Narrative Not on file Patient's medications, allergies, past medical, surgical, social and family histories were reviewedand updated as appropriate. Current Outpatient Medications Medication Sig Dispense Refill ADMELOG 100 UNIT/ML injection (vial) If glucose is between 150-200 give 2 units, between 201-250 give 4 units, between 251-300, give 6 units, between 301-350 give 8 units. 15 mL 3 albuterol 108 (90 Base) MCG/ACT inhaler Alogliptin Benzoate (NESINA) 25 MG TABS Take 1 tablet by mouth daily. 90 tablet 1 ASPIRIN LOW DOSE 81 MG EC tablet Take 1 tablet by mouth daily. 90 tablet 1 atorvastatin (LIPITOR) 10 MG tablet Take 1 tablet by mouth daily. 90 tablet 1 BASAGLAR KWIKPEN 100 UNIT/ML pen Inject 70 Units into the skin daily. 5 Adjustable Dose Pre-filled Pen Syringe 3 carvedilol (COREG) 25 MG tablet Take 1 tablet by mouth 2 times daily (with meals). 180 tablet 1 enalapril (VASOTEC) 2.5 MG tablet Take 1 tablet by mouth daily. 90 tablet 1 fexofenadine (BETINA) 180 MG tablet Take 1 tablet by mouth daily. 90 tablet 3 Fluticasone propionate (FLONASE) 50 MCG/ACT nasal spray furosemide (LASIX) 40 MG tablet Take 1 tablet by mouth daily. 90 tablet 1 Insulin Pen Needle (ADVOCATE INSULIN PEN NEEDLES) 31G X 5 MM MISC by Does not apply route. Insulin Syringe-Needle U-100 (INSULIN SYRINGE .5CC/30GX5/16) 30G X 5/16 0.5 ML MISC by Does not apply route. Lancets 30G MISC 1 each by Does not apply route 4 times daily. 200 each 11 Magnesium Oxide (MAG-OX) 400 (241.3 Mg) MG tablet Take 1 tablet by mouth two times a day. 180 tablet 3 ONE TOUCH ULTRA TEST TEST BLOOD SUGAR ONE TO THREE TIMES A DAY 400 strip 3 oxybutynin ER (DITROPAN XL) 15 MG 24 hr tablet Take 1 tablet by mouth daily. 90 tablet 3 pantoprazole (PROTONIX) 40 MG tablet Take 1 tablet by mouth daily. 90 tablet 1 Polyethylene Glycol 3350 (MIRALAX PO) Take by mouth. pramipexole (MIRAPEX) 0.75 MG tablet Take 1 tablet by mouth nightly. 90 tablet 3 sertraline (ZOLOFT) 100 MG tablet Take 1 tablet by mouth daily. 90 tablet 1 spironolactone (ALDACTONE) 25 MG tablet Take 1 tablet by mouth daily. 90 tablet 1 triamcinolone (KENALOG) 0.1 % ointment Apply topically two times a day. Vitamin D, Ergocalciferol, 1.25 MG (35516 UT) CAPS Take 1 capsule by mouth every 7 days. 12 capsule1 No current facility-administered medications for this visit. Review of Systems Constitutional: Negative for activity change, appetite change, fatigue and fever. Eyes: Negative for visual disturbance. Respiratory: Negative for shortness of breath. Cardiovascular: Negative for chest pain and palpitations. Gastrointestinal: Positive for heartburn. Negative for abdominal distention, abdominal pain, blood in stool, constipation, diarrhea, nausea and vomiting. Genitourinary: Positive for stress incontinence. Negative for dyspareunia, dysuria, genital sores, menstrual problem, pelvic pain, vaginal bleeding, vaginal discharge, vaginal pain and urge incontinence. Musculoskeletal: Positive for neck pain. Neurological: Positive for headaches. Psychiatric/Behavioral: Negative for sleep disturbance and suicidal ideas. Breast: Negative for breast pain, breast discharge and breast mass Objective Physical Exam Constitutional: Appearance: She is well-developed. Neck: Musculoskeletal: Normal range of motion and neck supple. Thyroid: No thyromegaly. Trachea: No tracheal deviation. Cardiovascular: Rate and Rhythm: Normal rate and regular rhythm. Heart sounds: Normal heart sounds. Pulmonary: Effort: Pulmonary effort is normal. Breath sounds: Normal breath sounds. Chest: Breasts: Breasts are symmetrical. Right: No inverted nipple, mass, nipple discharge, skin change or tenderness. Left: No inverted nipple, mass, nipple discharge, skin change or tenderness. Abdominal: General: Bowel sounds are normal. There is no distension. Palpations: Abdomen is soft. There is no mass. Tenderness: There is no tenderness. Genitourinary: General: Normal vulva. Labia: Right: No rash or lesion. Left: No rash or lesion. Vagina: Normal. No vaginal discharge. Uterus: Absent. Adnexa: Right: No mass or tenderness. Left: No mass or tenderness. Musculoskeletal: Normal range of motion. Skin: General: Skin is warm and dry. Neurological: Mental Status: She is alert and oriented to person, place, and time. Psychiatric: Speech: Speech normal. Behavior: Behavior normal. Visit Vitals BP 120/60 Ht 5' 9 (1.753 m) Wt 102.7 kg (226 lb 6.4 oz) BMI 33.43 kg/m Assessment/Plan Michelle was seen today for gynecologic exam. Diagnoses and all orders for this visit: Well woman exam with routine gynecological exam Breast/Pelvic exam Given information on self breast awareness and osteoporosis prevention. BMI 33.0-33.9,adult Given information on BMI, dietary guidelines, and physical activity. Screen for STD (sexually transmitted disease) - GC & Chlamydia Amplified Probe; Future - Trichomonas Amplified Probe; Future Declines serum screening Stress incontinence States manageable Return in about 1 year (around 07/28/2020) for Annual Exam. * Anali Wilson LPN - 07/28/2019 1:20 PM EST Michelle Jules is presenting for evaluation of annual exam. LMP was N/A. Pt had a hysterectomy in 2005 due to painful periods. Pt does have a hx of abnormal pap. Last mammogram 05/28/19. Pt does have a family hx of breast, cervical, or ovarian cancer. Pt does perform breast exams at home. Pt voices no issues or concerns at this time. 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 Patient's medications and allergies were reviewed and updated as appropriate. Patient's medications, allergies, past medical, surgical, social and family histories were reviewedand updated as appropriate. Body mass index is 33.43 kg/m .. Provider discussed her BMI. She has been counseled in the office during this visit . PHQ: PHQ-2 Total Score: 0 Interpretation of Total Score Depression Severity: 1-4 = Minimal depression, 5-9 = Mild depression, 10-14 = Moderate depression, 15-19 = Moderately severe depression, 20-27 = Severe depression Depression screening was performed with standardized tool: Screening score indicates no depression. documented in this encounter* Ha Avelar APRN FAT PRESSROOM WORKER-C - 08/18/2019 8:15 AM EST Subjective: Michelle Jules is a 54 y.o. female. Patient's medications, allergies, past medical, surgical, social and family histories were reviewedand updated as appropriate. HPI Chief Complaint: Pre-Op Evaluation for Medical Clearance History of Present llness: Operation:left knee internal derangements/patella dislocations Date: 09/04/2019 Surgeon: Dr Silva All conservative measures have been exhausted, thus surgery has been recommended. SIGNIFICANT HISTORY: Patient Active Problem List Diagnosis Date Noted Trichomonal vaginitis 07/31/2019 Class 1 obesity without serious comorbidity with body mass index (BMI) of 34.0 to 34.9 in adult, unspecified obesity type 06/01/2019 Type 2 diabetes mellitus without complication, without long-term current use of insulin ([facility]) 04/22/2019 Current Outpatient Medications on File Prior to Visit Medication Sig Dispense Refill ADMELOG 100 UNIT/ML injection (vial) If glucose is between 150-200 give 2 units, between 201-250 give 4 units, between 251-300, give 6 units, between 301-350 give 8 units. 15 mL 3 albuterol 108 (90 Base) MCG/ACT inhaler Alogliptin Benzoate (NESINA) 25 MG TABS Take 1 tablet by mouth daily. 90 tablet 1 ASPIRIN LOW DOSE 81 MG EC tablet Take 1 tablet by mouth daily. 90 tablet 1 atorvastatin (LIPITOR) 10 MG tablet Take 1 tablet by mouth daily. 90 tablet 1 BASAGLAR KWIKPEN 100 UNIT/ML pen INJECT 70 UNITS SUBCUTANEOUSLY DAILY 15 mL 1 carvedilol (COREG) 25 MG tablet Take 1 tablet by mouth 2 times daily (with meals). 180 tablet 1 enalapril (VASOTEC) 2.5 MG tablet Take 1 tablet by mouth daily. 90 tablet 1 fexofenadine (BETINA) 180 MG tablet Take 1 tablet by mouth daily. 90 tablet 3 Fluticasone propionate (FLONASE) 50 MCG/ACT nasal spray furosemide (LASIX) 40 MG tablet Take 1 tablet by mouth daily. 90 tablet 1 Insulin Pen Needle (ADVOCATE INSULIN PEN NEEDLES) 31G X 5 MM MISC by Does not apply route. Insulin Syringe-Needle U-100 (INSULIN SYRINGE .5CC/30GX5/16) 30G X 5/16 0.5 ML MISC by Does not apply route. Insulin Syringe-Needle U-100 30G X 5/16 0.5 ML MISC 1 each by Does not apply route 4 times daily. 120 Syringe 11 Lancets 30G MISC 1 each by Does not apply route 4 times daily. 200 each 11 Magnesium Oxide (MAG-OX) 400 (241.3 Mg) MG tablet Take 1 tablet by mouth two times a day. 180 tablet 3 ONE TOUCH ULTRA TEST TEST BLOOD SUGAR ONE TO THREE TIMES A DAY 400 strip 3 oxybutynin ER (DITROPAN XL) 15 MG 24 hr tablet Take 1 tablet by mouth daily. 90 tablet 3 pantoprazole (PROTONIX) 40 MG tablet Take 1 tablet by mouth daily. 90 tablet 1 Polyethylene Glycol 3350 (MIRALAX PO) Take by mouth. pramipexole (MIRAPEX) 0.75 MG tablet Take 1 tablet by mouth nightly. 90 tablet 3 sertraline (ZOLOFT) 100 MG tablet Take 1 tablet by mouth daily. 90 tablet 1 spironolactone (ALDACTONE) 25 MG tablet Take 1 tablet by mouth daily. 90 tablet 1 [DISCONTINUED] triamcinolone (KENALOG) 0.1 % ointment Apply topically two times a day. Vitamin D, Ergocalciferol, 1.25 MG (63892 UT) CAPS Take 1 capsule by mouth every 7 days. 12 capsule1 No current facility-administered medications on file prior to visit. Past Medical History: Diagnosis Date Abnormality of gait Anal condyloma Anxiety Cardiomyopathy (HCC) Cystocele with prolapse Diabetes mellitus (HCC) Encounter for routine gynecological examination Ganglion cyst of foot Goiter colloid, toxic, nodular Hyperlipidemia Hypertension Incontinence Joint pain RLS (restless legs syndrome) Tendinitis Toxic diffuse goiter Past Surgical History: Procedure Laterality Date APPENDECTOMY CARDIAC DEFIBRILLATOR PLACEMENT HYSTERECTOMY 2006 KNEE SURGERY Right Allergies Allergen Reactions Metformin Itching Simvastatin Other (See Comments) myalgia Latex Rash Social History Tobacco Use Smoking status: Never Smoker Smokeless tobacco: Never Used Substance Use Topics Alcohol use: Yes Frequency: Never Comment: rare Family History Problem Relation Age of Onset Diabetes Mother Heart disease Mother Breast cancer Mother 50s High cholesterol Mother Stroke Mother Colon cancer Father Heart disease Father Diabetes Paternal Aunt Diabetes Maternal Grandmother Cancer Paternal Grandmother colon Thyroid disease Neg Hx Osteoporosis Neg Hx When pre-operative testing is complete, I will forward a letter of medical clearance with this H&P. This patient is not medically optimized for surgery, and will need to see her credit union teller before surgery. Body mass index is 33.79 kg/m .. I discussed her BMI. She has been counseled in the office during this visit . PHQ: PHQ-2 Total Score: 0 Interpretation of Total Score Depression Severity: 1-4 = Minimal depression, 5-9 = Mild depression, 10-14 = Moderate depression, 15-19 = Moderately severe depression, 20-27 = Severe depression Depression screening was performed with standardized tool: Screening score indicates no depression. Review of Systems Constitutional: Negative. HENT: Negative. Eyes: Negative. Respiratory: Negative. Cardiovascular: Negative. Gastrointestinal: Negative. Endocrine: Negative. Genitourinary: Negative. Musculoskeletal: Negative. Skin: Negative. Allergic/Immunologic: Negative. Neurological: Negative. Hematological: Negative. Psychiatric/Behavioral: Negative. Physical Exam Constitutional: She is oriented to person, place, and time. Vital signs are normal. She appears well-developed and well-nourished. HENT: Head: Normocephalic. Eyes: Conjunctivae are normal. Neck: Neck supple. Cardiovascular: Normal rate, regular rhythm, S1 normal, S2 normal and normal heart sounds. Pulmonary/Chest: Effort normal and breath sounds normal. Neurological: She is alert and oriented to person, place, and time. Skin: Skin is warm, dry and intact. Psychiatric: She has a normal mood and affect. Her speech is normal and behavior is normal. Judgment and thought content normal. Cognition and memory are normal. She expresses no homicidal and no suicidal ideation. She expresses no suicidal plans and no homicidal plans. Nursing note and vitals reviewed. Assessment: Michelle was seen today for surgical clearance. Diagnoses and all orders for this visit: Pre-operative clearance - CBC with Differential; Future - Comprehensive metabolic panel aka Metabo; Future - XR Chest PA and lat; Future - POCT rack urine - EKG Order Other eczema - triamcinolone (KENALOG) 0.1 % ointment; Apply topically two times a day. Plan: Return for Keep FU OV with me. Patient encouraged to continue to follow with specialists. documented in this encounter* Nilam Garrett RN - 08/21/2019 11:26 AM EST Order for ECHOCARDIOGRAM given to Janet Jacobo MA to initiate prior-authorization. documented in this encounter* Milka Rodriguez MD - 08/21/2019 11:47 AM EST [facility] Subjective Michelle Jules is a 54 y.o. female seen in the office today for Establish Care (cardiac clearance for knee scopt) HPI: HPI This is a 54-year-old female who was referred to our office by Dr. Blackwell for preop clearance for left knee surgery. She has a history of nonischemic cardiomyopathy, dyslipidemia, benign essential hypertension, dual-chamber pacer ICD. She denies having any chest pain, PND orthopnea. She states that she walks about a mile outside every day without any symptoms. She was having her device followed bythe credit union teller in [place]. She is going to switch her follow-up care to our office as well as monitoring her device. She has not received any therapy from her defibrillator. She stated she has never smoked. She was checked for sleep apnea and does not have it. 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 Her last interrogation remotely was 06/30/2019 through [facility] device clinic. No abnormalities were seen. They stated she had aA AP with by V pacing between 50 to 71 bpm. PMT was noted tracking at URL. Sensing and impedance values were stable no EGM without noise seen. Longevity of battery 8 years Histories: History reviewed. No pertinent past medical history. Past Surgical History: Procedure Laterality Date CARDIAC CATHETERIZATION CARDIAC PACEMAKER PLACEMENT CAROTID STENT Family History Problem Relation Age of Onset Diabetes Mother Heart attack Mother Hyperlipidemia Mother Hypertension Mother Heart attack Father Hyperlipidemia Father Hypertension Sister Diabetes Maternal Grandmother Heart attack Maternal Grandmother Heart failure Maternal Grandmother Hyperlipidemia Maternal Grandmother Stroke Maternal Grandmother Social History Tobacco Use Smoking status: Never Smoker Smokeless tobacco: Never Used Substance Use Topics Alcohol use: Not Currently Drug use: Never Patient's Medications New Prescriptions No medications on file Previous Medications ALBUTEROL 90 MCG/ACTUATION INHALER Inhale 2 puffs every 6 (six) hours as needed for wheezing . ALOGLIPTIN (NESINA) 25 MG TAB Take 25 mg by mouth daily . ASPIRIN 81 MG EC TABLET Take 81 mg by mouth daily . ERGOCALCIFEROL (VITAMIN D2) 1,250 MCG (50,000 UNIT) CAPSULE Take 50,000 Units by mouth once a week . FEXOFENADINE (BETINA) 180 MG TABLET Take 180 mg by mouth daily . FLUTICASONE PROPIONATE (FLONASE) 50 MCG/ACTUATION NASAL SPRAY Instill 2 sprays into each nostril daily . INSULIN GLARGINE (LANTUS) 100 UNIT/ML (3 ML) INPN Inject 70 Units under the skin nightly . INSULIN LISPRO 100 UNIT/ML INPN Inject under the skin . MAGNESIUM OXIDE (MAG-OX) 400 MG (241.3 MG MAGNESIUM) TABLET Take 400 mg by mouth daily . OXYBUTYNIN (DITROPAN XL) 15 MG 24 HR TABLET Take 15 mg by mouth daily . PANTOPRAZOLE (PROTONIX) 40 MG TABLET Take 40 mg by mouth daily . POLYETHYLENE GLYCOL (MIRALAX) 17 GRAM POWDER Take 17 g by mouth daily . PRAMIPEXOLE (MIRAPEX) 0.75 MG TABLET Take 0.75 mg by mouth nightly . SERTRALINE (ZOLOFT) 100 MG TABLET Take 100 mg by mouth daily . Modified Medications Modified Medication Previous Medication ATORVASTATIN (LIPITOR) 10 MG TABLET atorvastatin (LIPITOR) 10 MG tablet Take 1 (one) tablet (10 mg total) by mouth daily . Take 10 mg by mouth daily . CARVEDILOL (COREG) 25 MG TABLET carvediloL (COREG) 25 MG tablet Take 1 (one) tablet (25 mg total) by mouth 2 (two) times a day . Take 25 mg by mouth 2 (two) times a day . ENALAPRIL (VASOTEC) 2.5 MG TABLET enalapril (VASOTEC) 2.5 MG tablet Take 1 (one) tablet (2.5 mg total) by mouth 2 (two) times a day . Take 2.5 mg by mouth 2 (two) times a day . FUROSEMIDE (LASIX) 40 MG TABLET furosemide (LASIX) 40 MG tablet Take 1 (one) tablet (40 mg total) by mouth daily . Take 40 mg by mouth daily . SPIRONOLACTONE (ALDACTONE) 25 MG TABLET spironolactone (ALDACTONE) 25 MG tablet Take 1 (one) tablet (25 mg total) by mouth daily . Take 25 mg by mouth daily . Discontinued Medications No medications on file Allergies Allergen Reactions Latex Metformin Simvastatin Review of Systems Constitution: Negative for diaphoresis, malaise/fatigue, weight gain and weight loss. HENT: Positive for nosebleeds. Negative for hearing loss and tinnitus. Eyes: Negative for blurred vision and visual disturbance. Cardiovascular: Positive for cyanosis, irregular heartbeat and paroxysmal nocturnal dyspnea. Negative for chest pain, claudication, dyspnea on exertion, leg swelling, near-syncope, orthopnea, palpitations and syncope. Respiratory: Positive for shortness of breath. Negative for hemoptysis and snoring. Endocrine: Negative for cold intolerance and heat intolerance. Hematologic/Lymphatic: Does not bruise/bleed easily. Skin: Positive for poor wound healing. Negative for flushing and rash. Musculoskeletal: Positive for back pain. Negative for muscle weakness and myalgias. Gastrointestinal: Positive for change in bowel habit. Negative for abdominal pain, melena, nausea and vomiting. Genitourinary: Negative for decreased libido and hematuria. Neurological: Negative for loss of balance and numbness. Psychiatric/Behavioral: Negative for memory loss. The patient is nervous/anxious. Objective Physical Exam Constitutional: She is oriented to person, place, and time. She appears well- developed and well-nourished. HENT: Head: Normocephalic. Mouth/Throat: Oropharynx is clear and moist. Eyes: Conjunctivae and lids are normal. Neck: No JVD present. Carotid bruit is not present. Cardiovascular: Normal rate, regular rhythm, normal heart sounds and normal pulses. Pulmonary/Chest: Effort normal and breath sounds normal. Abdominal: Soft. Bowel sounds are normal. She exhibits no mass. There is no hepatosplenomegaly. There is no abdominal tenderness. Musculoskeletal: Normal range of motion. Neurological: She is alert and oriented to person, place, and time. Gait normal. Skin: Skin is warm and intact. No rash noted. Psychiatric: She has a normal mood and affect. Her behavior is normal. Vitals reviewed. Vitals: BP 110/74 (BP Location: Left arm, Patient Position: Sitting) Pulse 67 Ht 5' 9 Wt 103 kg (227lb) SpO2 95% BMI 33.52 kg/m EKG Interpretation: NSR v paced Lab Review: 01/01/2019 chest x-ray no acute process 08/18/2019 Chem-7 within normal limits except glucose of 126 alk phos 139 AST ALT normal CBC within normal limits Assessment & Plan: 1. Benign essential HTN Controlled on current dose 2. Dyslipidemia On statin managed by PCP 3. Pre-operative cardiovascular examination She is considered acceptable risk she may proceed with surgery without any further cardiac work-up.Will get an echo. 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 Her last interrogation remotely was 06/30/2019 through [facility] device clinic. No abnormalities were seen. They stated she had aA AP with by V pacing between 50 to 71 bpm. PMT was noted tracking at URL. Sensing and impedance values were stable no EGM without noise seen. Longevity of battery 8 years She will be enrolled in our device clinic 5. Nonischemic cardiomyopathy (HCC) She should continue her carvedilol and enalapril, Lasix and spironolactone at current dose. - Echocardiogram complete w contrast; Future 6. Obesity recommend weight loss and exercise program 7. Type 2 diabetes recommend hemoglobin A1c to be less than 7 per the guidelines managed by PCP Other Tests Ordered: Procedures Echocardiogram complete w contrast Follow-Up Ordered: Return in about 3 months (around 11/19/2019). Milka Rodriguez MD [facility] [address] [place] [address] * Janet Jacobo MA - 08/21/2019 10:22 AM EST Review of Systems Constitution: Negative for diaphoresis, malaise/fatigue, weight gain and weight loss. HENT: Positive for nosebleeds. Negative for hearing loss and tinnitus. Eyes: Negative for blurred vision and visual disturbance. Cardiovascular: Positive for cyanosis, irregular heartbeat and paroxysmal nocturnal dyspnea. Negative for chest pain, claudication, dyspnea on exertion, leg swelling, near-syncope, orthopnea, palpitations and syncope. Respiratory: Positive for shortness of breath. Negative for hemoptysis and snoring. Endocrine: Negative for cold intolerance and heat intolerance. Hematologic/Lymphatic: Does not bruise/bleed easily. Skin: Positive for poor wound healing. Negative for flushing and rash. Musculoskeletal: Positive for back pain. Negative for muscle weakness and myalgias. Gastrointestinal: Positive for change in bowel habit. Negative for abdominal pain, melena, nausea and vomiting. Genitourinary: Negative for decreased libido and hematuria. Neurological: Negative for loss of balance and numbness. Psychiatric/Behavioral: Negative for memory loss. The patient is nervous/anxious. documented in this encounter* Janet Jacobo MA - 12/15/2019 11:32 AM EDT Review of Systems Constitution: Positive for weight gain. Negative for diaphoresis, malaise/fatigue and weight loss. HENT: Negative for hearing loss, nosebleeds and tinnitus. Eyes: Negative for blurred vision and visual disturbance. Cardiovascular: Negative for chest pain, claudication, cyanosis, dyspnea on exertion, irregular heartbeat, leg swelling, near-syncope, orthopnea, palpitations, paroxysmal nocturnal dyspnea and syncope. Respiratory: Negative for hemoptysis, shortness of breath and snoring. Endocrine: Negative for cold intolerance and heat intolerance. Hematologic/Lymphatic: Does not bruise/bleed easily. Skin: Negative for flushing, poor wound healing and rash. Musculoskeletal: Negative for back pain, muscle weakness and myalgias. Gastrointestinal: Negative for abdominal pain, change in bowel habit, melena, nausea and vomiting. Genitourinary: Negative for decreased libido and hematuria. Neurological: Negative for loss of balance and numbness. Psychiatric/Behavioral: Negative for memory loss. The patient is not nervous/anxious. * Abbey Oliveira CNP - 12/15/2019 11:00 AM EDT General Cardiology Clinic Consult Heart & Vascular [facility] 12/15/2019 Patient: Michelle Jules Date of : 1965 (54 y.o.) Referring Provider: No ref. provider found PCP: Physician No Assessment & Plan Nonischemic cardiomyopathy (HCC) Ischemic cardiomyopathy, functional class II recovered ejection fraction 45 to 50% Continue carvedilol. Developed dry cough. Stop enalapril and start losartan 12.5 mg daily. Continue Aldactone at current dose. She sounds to be volume overloaded. She is complaining of a dry cough at night, orthopnea increasedshortness of breath and abdominal fullness. She is up about 8 pounds since her last visit here. Increase Lasix to 80 mg daily. Labs before her follow-up appointment Follow-up in 2 weeks. Has device clinic next week. Follow-up: Return in about 2 weeks (around 12/29/2019). Chief Complaint: Follow-up (2wk f/u CHF) Subjective History of Present Illness: Michelle Jules is a 54 y.o. female with a past medical history of nonischemic cardiomyopathy, hyperlipidemia, hypertension, 2 diabetes, obesity, GERD, depression. She was last seen here on 08/21/2019 for cardiac clearance before left knee surgery. Echocardiogram was ordered at that time. Echocardiogram on 08/31/2019 showed an ejection fraction of 45 to 50% with no regional wall motion abnormalities. Trace tricuspid valve regurgitation. She was last seen via telehealth on 11/17/2019 complaining of weight gain and lower extremity edema. She is also complaining of mild shortness of breath when walking uphill. Lasix was increased to 60 mg daily. Labs were ordered. She was last seen via telehealth on 12/01/2019. C/o orthopnea and weight gain. Lasix was increased to 60 mg daily. Today, she is here for heart failure follow-up. She is complaining of a dry cough which is worse atnight when lying flat. She also has some difficulty breathing when lying flat. Her weight today is 235 pounds is up 8 pounds from her last visit. She feels short of breath with exertion and bloated in her abdomen. She denies eating salty foods. No use of NSAIDs. She has been very anxious lately. She denies chest pain, palpitations, lower extremity swelling, dizziness or syncope. Objective ECG 12 Lead Final Result by Milka Rodriguez MD (08/21/2019 1050) Echocardiogram complete w contrast Final Result by Janet Jacobo MA (09/01/2019 1039) Review of Systems: Review of systems performed by the medical laboratory technical officer, personally reviewed and viewable in the current patient encounter. Pertinent positive and negative findings detailed in HPI. Review of Systems Constitution: Positive for weight gain. Negative for diaphoresis, malaise/fatigue and weight loss. HENT: Negative for hearing loss, nosebleeds and tinnitus. Eyes: Negative for blurred vision and visual disturbance. Cardiovascular: Negative for chest pain, claudication, cyanosis, dyspnea on exertion, irregular heartbeat, leg swelling, near-syncope, orthopnea, palpitations, paroxysmal nocturnal dyspnea and syncope. Respiratory: Negative for hemoptysis, shortness of breath and snoring. Endocrine: Negative for cold intolerance and heat intolerance. Hematologic/Lymphatic: Does not bruise/bleed easily. Skin: Negative for flushing, poor wound healing and rash. Musculoskeletal: Negative for back pain, muscle weakness and myalgias. Gastrointestinal: Negative for abdominal pain, change in bowel habit, melena, nausea and vomiting. Genitourinary: Negative for decreased libido and hematuria. Neurological: Negative for loss of balance and numbness. Psychiatric/Behavioral: Negative for memory loss. The patient is not nervous/anxious. History reviewed. No pertinent past medical history. Past Surgical History: Procedure Laterality Date CARDIAC CATHETERIZATION CARDIAC PACEMAKER PLACEMENT CAROTID STENT Family History Problem Relation Age of Onset Diabetes Mother Heart attack Mother Hyperlipidemia Mother Hypertension Mother Heart attack Father Hyperlipidemia Father Hypertension Sister Diabetes Maternal Grandmother Heart attack Maternal Grandmother Heart failure Maternal Grandmother Hyperlipidemia Maternal Grandmother Stroke Maternal Grandmother Social History Tobacco Use Smoking Status Never Smoker Smokeless Tobacco Never Used Allergies: Latex; Metformin; and Simvastatin HOME Medications: Current Outpatient Medications on File Prior to Visit Medication Sig albuterol 90 mcg/actuation inhaler Inhale 2 puffs every 6 (six) hours as needed for wheezing . alogliptin (Nesina) 25 mg Tab Take 25 mg by mouth daily . aspirin 81 MG EC tablet Take 81 mg by mouth daily . atorvastatin (LIPITOR) 10 MG tablet Take 1 (one) tablet (10 mg total) by mouth daily . carvediloL (COREG) 25 MG tablet Take 1 (one) tablet (25 mg total) by mouth 2 (two) times a day . ergocalciferol (Vitamin D2) 1,250 mcg (50,000 unit) capsule Take 50,000 Units by mouth once a week . fexofenadine (BETINA) 180 MG tablet Take 180 mg by mouth daily . fluticasone propionate (FLONASE) 50 mcg/actuation nasal spray Instill 2 sprays into each nostril daily . insulin glargine (LANTUS) 100 unit/mL (3 mL) InPn Inject 70 Units under the skin nightly . insulin lispro 100 unit/mL InPn Inject under the skin . magnesium oxide (MAG-OX) 400 mg (241.3 mg magnesium) tablet Take 400 mg by mouth daily . oxybutynin (DITROPAN XL) 15 MG 24 hr tablet Take 15 mg by mouth daily . pantoprazole (PROTONIX) 40 MG tablet Take 40 mg by mouth daily . polyethylene glycol (MIRALAX) 17 gram powder Take 17 g by mouth daily . pramipexole (MIRAPEX) 0.75 MG tablet Take 0.75 mg by mouth nightly . sertraline (ZOLOFT) 100 MG tablet Take 100 mg by mouth daily . spironolactone (ALDACTONE) 25 MG tablet Take 1 (one) tablet (25 mg total) by mouth daily . [DISCONTINUED] enalapril (VASOTEC) 2.5 MG tablet Take 1 (one) tablet (2.5 mg total) by mouth 2 (two) times a day . [DISCONTINUED] furosemide (LASIX) 20 MG tablet Take 1 (one) tablet (20 mg total) by mouth daily . (Patient taking differently: Take 60 mg by mouth daily .) No current facility-administered medications on file prior to visit. Vital Signs: BP (!) 101/56 (BP Location: Left arm, Patient Position: Sitting) Pulse 74 Ht 5' 9 Wt 106.6 kg (235 lb) SpO2 98% BMI 34.70 kg/m Physical Exam Constitutional: She is oriented to person, place, and time. She appears well- developed and well-nourished. HENT: Head: Normocephalic and atraumatic. Eyes: Conjunctivae and lids are normal. Right eye exhibits no discharge. Left eye exhibits no discharge. Neck: No JVD present. Carotid bruit is not present. Cardiovascular: Normal rate, regular rhythm, normal heart sounds and normal pulses. No murmur heard. Pulmonary/Chest: Effort normal and breath sounds normal. No respiratory distress. She has no wheezes. She has no rales. Abdominal: Soft. Bowel sounds are normal. She exhibits no mass. There is no hepatosplenomegaly. There is no abdominal tenderness. Musculoskeletal: Normal range of motion. General: No edema. Neurological: She is alert and oriented to person, place, and time. Gait normal. Skin: Skin is warm and intact. No rash noted. Psychiatric: She has a normal mood and affect. Her behavior is normal. Vitals reviewed. No results found for: CHOL, LDLCALC, LDLDIRECT, TRIG, [facility] Abbey Oliveira CNP [facility], Heart and Vascular [facility] [id number] [email or web address] documented in this encounter* Janet Jacobo MA - 12/29/2019 10:50 AM EDT Review of Systems Constitution: Negative for diaphoresis, malaise/fatigue, weight gain and weight loss. HENT: Negative for hearing loss, nosebleeds and tinnitus. Eyes: Negative for blurred vision and visual disturbance. Cardiovascular: Negative for chest pain, claudication, cyanosis, dyspnea on exertion, irregular heartbeat, leg swelling, near-syncope, orthopnea, palpitations, paroxysmal nocturnal dyspnea and syncope. Respiratory: Positive for wheezing. Negative for hemoptysis, shortness of breath and snoring. Endocrine: Negative for cold intolerance and heat intolerance. Hematologic/Lymphatic: Does not bruise/bleed easily. Skin: Negative for flushing, poor wound healing and rash. Musculoskeletal: Negative for back pain, muscle weakness and myalgias. Gastrointestinal: Negative for abdominal pain, change in bowel habit, melena, nausea and vomiting. Genitourinary: Negative for decreased libido and hematuria. Neurological: Negative for loss of balance and numbness. Psychiatric/Behavioral: Negative for memory loss. The patient is not nervous/anxious. Patient complains of swelling in fingers yesterday * Abbey Oliveira CNP - 12/29/2019 10:45 AM EDT General Cardiology Clinic Consult Heart & Vascular [facility] 12/29/2019 Patient: Michelle Jules Date of : 1965 (54 y.o.) Referring Provider: No ref. provider found PCP: Physician No Assessment & Plan Nonischemic cardiomyopathy (HCC) Nonischemic cardiomyopathy, functional class II recovered ejection fraction 45 to 50%. Continue carvedilol, Aldactone and losartan. She developed a cough on enalapril. Overnight pulse ox ordered to screen for sleep apnea. She was diagnosed with that in the past and had been on CPAP. Encouraged her to have her labs done as soon as possible. [employer] can take her tomorrow at 9 AM. Continue Lasix at current dose 80 mg daily. Will reevaluate after she has her labs done and contacther with instructions. Keep follow-up appointment in device clinic. Follow-up in 3 months or sooner if needed. Follow-up: Return in about 3 months (around 03/30/2020). Chief Complaint: Follow-up (2wk f/u heart failure) Subjective History of Present Illness: Michelle Jules is a 54 y.o. female with a past medical history of nonischemic cardiomyopathy, hyperlipidemia, hypertension, 2 diabetes, obesity, GERD, depression. She was last seen here on 08/21/2019 for cardiac clearance before left knee surgery. Echocardiogram was ordered at that time. Echocardiogram on 08/31/2019 showed an ejection fraction of 45 to 50% with no regional wall motion abnormalities. Trace tricuspid valve regurgitation. She was last seen here on 12/15/2019 for heart failure follow-up. At that visit, she was complaining of a dry cough worse at night when lying flat. She was also complaining of difficulty breathing whenlying flat. Her weight was 235 pounds that was up 8 pounds from the last visit in our office. Lasixwas increased to 80 mg daily. Her enalapril was also discontinued and losartan 12.5 mg daily was started due to cough. Today, she is here for heart failure follow-up. Her cough has completely resolved since stopping enalapril. Her blood pressures controlled on losartan 12.5 mg daily. Her weight is the same. She thinks that her shortness of breath has improved. She did not get her lab work done. Still props her headup at night with 3 pillows. I suspect that she has sleep apnea. She states that she was diagnosed with it in the past and had been on CPAP then was told later on that she did not have it any longer. Objective ECG 12 Lead Final Result by Milka Rodriguez MD (08/21/2019 1050) Echocardiogram complete w contrast Final Result by Janet Jacobo MA (09/01/2019 1039) Review of Systems: Review of systems performed by the medical laboratory technical officer, personally reviewed and viewable in the current patient encounter. Pertinent positive and negative findings detailed in HPI. Review of Systems Constitution: Negative for diaphoresis, malaise/fatigue, weight gain and weight loss. HENT: Negative for hearing loss, nosebleeds and tinnitus. Eyes: Negative for blurred vision and visual disturbance. Cardiovascular: Negative for chest pain, claudication, cyanosis, dyspnea on exertion, irregular heartbeat, leg swelling, near-syncope, orthopnea, palpitations, paroxysmal nocturnal dyspnea and syncope. Respiratory: Positive for wheezing. Negative for hemoptysis, shortness of breath and snoring. Endocrine: Negative for cold intolerance and heat intolerance. Hematologic/Lymphatic: Does not bruise/bleed easily. Skin: Negative for flushing, poor wound healing and rash. Musculoskeletal: Negative for back pain, muscle weakness and myalgias. Gastrointestinal: Negative for abdominal pain, change in bowel habit, melena, nausea and vomiting. Genitourinary: Negative for decreased libido and hematuria. Neurological: Negative for loss of balance and numbness. Psychiatric/Behavioral: Negative for memory loss. The patient is not nervous/anxious. Patient complains of swelling in fingers yesterday History reviewed. No pertinent past medical history. Past Surgical History: Procedure Laterality Date CARDIAC CATHETERIZATION CARDIAC PACEMAKER PLACEMENT CAROTID STENT Family History Problem Relation Age of Onset Diabetes Mother Heart attack Mother Hyperlipidemia Mother Hypertension Mother Heart attack Father Hyperlipidemia Father Hypertension Sister Diabetes Maternal Grandmother Heart attack Maternal Grandmother Heart failure Maternal Grandmother Hyperlipidemia Maternal Grandmother Stroke Maternal Grandmother Social History Tobacco Use Smoking Status Never Smoker Smokeless Tobacco Never Used Allergies: Latex; Metformin; and Simvastatin HOME Medications: Current Outpatient Medications on File Prior to Visit Medication Sig albuterol 90 mcg/actuation inhaler Inhale 2 puffs every 6 (six) hours as needed for wheezing . alogliptin (Nesina) 25 mg Tab Take 25 mg by mouth daily . aspirin 81 MG EC tablet Take 81 mg by mouth daily . atorvastatin (LIPITOR) 10 MG tablet Take 1 (one) tablet (10 mg total) by mouth daily . carvediloL (COREG) 25 MG tablet Take 1 (one) tablet (25 mg total) by mouth 2 (two) times a day . ergocalciferol (Vitamin D2) 1,250 mcg (50,000 unit) capsule Take 50,000 Units by mouth once a week . fexofenadine (BETINA) 180 MG tablet Take 180 mg by mouth daily . fluticasone propionate (FLONASE) 50 mcg/actuation nasal spray Instill 2 sprays into each nostril daily . furosemide (LASIX) 40 MG tablet Take 1 (one) tablet (40 mg total) by mouth 2 (two) times a day . insulin glargine (LANTUS) 100 unit/mL (3 mL) InPn Inject 70 Units under the skin nightly . insulin lispro 100 unit/mL InPn Inject under the skin . losartan (COZAAR) 25 MG tablet Take 0.5 (one-half) tablet (12.5 mg total) by mouth daily . magnesium oxide (MAG-OX) 400 mg (241.3 mg magnesium) tablet Take 400 mg by mouth daily . oxybutynin (DITROPAN XL) 15 MG 24 hr tablet Take 15 mg by mouth daily . pantoprazole (PROTONIX) 40 MG tablet Take 40 mg by mouth daily . polyethylene glycol (MIRALAX) 17 gram powder Take 17 g by mouth daily . pramipexole (MIRAPEX) 0.75 MG tablet Take 0.75 mg by mouth nightly . sertraline (ZOLOFT) 100 MG tablet Take 100 mg by mouth daily . spironolactone (ALDACTONE) 25 MG tablet Take 1 (one) tablet (25 mg total) by mouth daily . No current facility-administered medications on file prior to visit. Vital Signs: BP 121/72 (BP Location: Right arm, Patient Position: Sitting) Pulse 60 Ht 5' 9 Wt 106.6 kg (235 lb) SpO2 96% BMI 34.70 kg/m Physical Exam Constitutional: She is oriented to person, place, and time. She appears well- developed and well-nourished. HENT: Head: Normocephalic and atraumatic. Eyes: Conjunctivae and lids are normal. Right eye exhibits no discharge. Left eye exhibits no discharge. Neck: No JVD present. Carotid bruit is not present. Cardiovascular: Normal rate, regular rhythm, normal heart sounds and normal pulses. No murmur heard. Pulmonary/Chest: Effort normal and breath sounds normal. No respiratory distress. She has no wheezes. She has no rales. Abdominal: Soft. Bowel sounds are normal. She exhibits no mass. There is no hepatosplenomegaly. There is no abdominal tenderness. Musculoskeletal: Normal range of motion. General: No edema. Neurological: She is alert and oriented to person, place, and time. Gait normal. Skin: Skin is warm and intact. No rash noted. Psychiatric: She has a normal mood and affect. Her behavior is normal. Vitals reviewed. No results found for: CHOL, LDLCALC, LDLDIRECT, TRIG, HDL Abbey Oliveira CNP [facility], Heart and Vascular [address] [place], [place] [id number] [email or web address] documented in this encounter* Marlene Jacob RN - 12/29/2019 3:13 PM EDT Order for Overnight Pulse Ox faxed to [facility] with insurance card, recent office note, snapshot/med list, and demographic sheet. Fax confirmation receipt received. documented in this encounter* Abbey Oliveira CNP - 04/05/2020 3:30 PM EDT General Cardiology Clinic Consult Heart & Vascular [facility] 04/05/2020 Patient: Michelle Jules Date of : 1965 (54 y.o.) Referring Provider: No ref. provider found PCP: Physician No Assessment & Plan Nonischemic cardiomyopathy (HCC) Nonischemic cardiomyopathy, functional class II recovered ejection fraction 45 to 50%. Euvolemic on exam Continue carvedilol, Aldactone and losartan. She developed a cough on enalapril. Continue Lasix at current dose 80 mg daily. Keep follow-up appointment in device clinic. Follow-up in 4 months or sooner if needed. Follow-up: Return in about 4 months (around 08/05/2020). Chief Complaint: Follow-up (3mo f/u heart failure) Subjective History of Present Illness: Michelle Jules is a 54 y.o. female with a past medical history of nonischemic cardiomyopathy, hyperlipidemia, hypertension, 2 diabetes, obesity, GERD, depression. She was last seen here on 08/21/2019 for cardiac clearance before left knee surgery. Echocardiogram was ordered at that time. Echocardiogram on 08/31/2019 showed an ejection fraction of 45 to 50% with no regional wall motion abnormalities. Trace tricuspid valve regurgitation. She was last seen here in 12/29/2019 for heart failure follow-up. No changes were made at that visit. Today, she reports no new symptoms. She does not have significant shortness of breath. She walks afew blocks up a slight grade several times a week without any difficulty. She has not experienced any chest pain. She sleeps in bed relatively flat using 2 pillows. She has not experienced any PND. She complains of lower extremity edema she has none on exam today. Objective ECG 12 Lead Final Result by Milka Rodriguez MD (08/21/2019 1050) Echocardiogram complete w contrast Final Result by Janet Jacobo MA (09/01/2019 1039) Review of Systems: Review of systems performed by the medical laboratory technical officer, personally reviewed and viewable in the current patient encounter. Pertinent positive and negative findings detailed in HPI. Review of Systems Constitution: Negative for diaphoresis, malaise/fatigue, weight gain and weight loss. HENT: Negative for hearing loss, nosebleeds and tinnitus. Eyes: Negative for blurred vision and visual disturbance. Cardiovascular: Positive for leg swelling. Negative for chest pain, claudication, cyanosis, dyspneaon exertion, irregular heartbeat, near-syncope, orthopnea, palpitations, paroxysmal nocturnal dyspnea and syncope. Respiratory: Negative for hemoptysis, shortness of breath and snoring. Endocrine: Negative for cold intolerance and heat intolerance. Hematologic/Lymphatic: Does not bruise/bleed easily. Skin: Negative for flushing, poor wound healing and rash. Musculoskeletal: Negative for back pain, muscle weakness and myalgias. Gastrointestinal: Negative for abdominal pain, change in bowel habit, melena, nausea and vomiting. Genitourinary: Negative for decreased libido and hematuria. Neurological: Negative for loss of balance and numbness. Psychiatric/Behavioral: Negative for memory loss. The patient is not nervous/anxious. History reviewed. No pertinent past medical history. Past Surgical History: Procedure Laterality Date CARDIAC CATHETERIZATION CARDIAC PACEMAKER PLACEMENT CAROTID STENT Family History Problem Relation Age of Onset Diabetes Mother Heart attack Mother Hyperlipidemia Mother Hypertension Mother Heart attack Father Hyperlipidemia Father Hypertension Sister Diabetes Maternal Grandmother Heart attack Maternal Grandmother Heart failure Maternal Grandmother Hyperlipidemia Maternal Grandmother Stroke Maternal Grandmother Social History Tobacco Use Smoking Status Never Smoker Smokeless Tobacco Never Used Allergies: Latex, Metformin, and Simvastatin HOME Medications: Current Outpatient Medications on File Prior to Visit Medication Sig albuterol 90 mcg/actuation inhaler Inhale 2 puffs every 6 (six) hours as needed for wheezing . alogliptin (Nesina) 25 mg Tab Take 25 mg by mouth daily . aspirin 81 MG EC tablet Take 81 mg by mouth daily . atorvastatin (LIPITOR) 10 MG tablet Take 1 (one) tablet (10 mg total) by mouth daily . carvediloL (COREG) 25 MG tablet Take 1 (one) tablet (25 mg total) by mouth 2 (two) times a day . ergocalciferol (Vitamin D2) 1,250 mcg (50,000 unit) capsule Take 50,000 Units by mouth once a week . fexofenadine (BETINA) 180 MG tablet Take 180 mg by mouth daily . fluticasone propionate (FLONASE) 50 mcg/actuation nasal spray Instill 2 sprays into each nostril daily . furosemide (LASIX) 40 MG tablet Take 1 (one) tablet (40 mg total) by mouth 2 (two) times a day . insulin glargine (LANTUS) 100 unit/mL (3 mL) InPn Inject 70 Units under the skin nightly . insulin lispro 100 unit/mL InPn Inject under the skin . losartan (COZAAR) 25 MG tablet Take 0.5 (one-half) tablet (12.5 mg total) by mouth daily . magnesium oxide (MAG-OX) 400 mg (241.3 mg magnesium) tablet Take 400 mg by mouth daily . oxybutynin (DITROPAN XL) 15 MG 24 hr tablet Take 15 mg by mouth daily . pantoprazole (PROTONIX) 40 MG tablet Take 40 mg by mouth daily . polyethylene glycol (MIRALAX) 17 gram powder Take 17 g by mouth daily . pramipexole (MIRAPEX) 0.75 MG tablet Take 0.75 mg by mouth nightly . sertraline (ZOLOFT) 100 MG tablet Take 100 mg by mouth daily . spironolactone (ALDACTONE) 25 MG tablet Take 1 (one) tablet (25 mg total) by mouth daily . No current facility-administered medications on file prior to visit. Vital Signs: BP 110/63 (BP Location: Left arm, Patient Position: Sitting) Pulse 60 Ht 5' 9 Wt 108.4 kg (239 lb) SpO2 97% BMI 35.29 kg/m Physical Exam Constitutional: She is oriented to person, place, and time. She appears well- developed and well-nourished. obese HENT: Head: Normocephalic and atraumatic. Eyes: Conjunctivae and lids are normal. Right eye exhibits no discharge. Left eye exhibits no discharge. Neck: No JVD present. Carotid bruit is not present. Cardiovascular: Normal rate, regular rhythm, normal heart sounds and normal pulses. No murmur heard. Pulmonary/Chest: Effort normal and breath sounds normal. No respiratory distress. She has no wheezes. She has no rales. Abdominal: Soft. Bowel sounds are normal. She exhibits no mass. There is no hepatosplenomegaly. There is no abdominal tenderness. Musculoskeletal: Normal range of motion. General: No edema. Neurological: She is alert and oriented to person, place, and time. Gait normal. Skin: Skin is warm and intact. No rash noted. Psychiatric: She has a normal mood and affect. Her behavior is normal. Vitals reviewed. No results found for: CHOL, LDLCALC, LDLDIRECT, TRIG, HDL Abbey Oliveira CNP [facility], Heart and Vascular [address] [place] [address] [email or web address] * Janet Jacobo MA - 04/05/2020 2:29 PM EDT Review of Systems Constitution: Negative for diaphoresis, malaise/fatigue, weight gain and weight loss. HENT: Negative for hearing loss, nosebleeds and tinnitus. Eyes: Negative for blurred vision and visual disturbance. Cardiovascular: Positive for leg swelling. Negative for chest pain, claudication, cyanosis, dyspneaon exertion, irregular heartbeat, near-syncope, orthopnea, palpitations, paroxysmal nocturnal dyspnea and syncope. Respiratory: Negative for hemoptysis, shortness of breath and snoring. Endocrine: Negative for cold intolerance and heat intolerance. Hematologic/Lymphatic: Does not bruise/bleed easily. Skin: Negative for flushing, poor wound healing and rash. Musculoskeletal: Negative for back pain, muscle weakness and myalgias. Gastrointestinal: Negative for abdominal pain, change in bowel habit, melena, nausea and vomiting. Genitourinary: Negative for decreased libido and hematuria. Neurological: Negative for loss of balance and numbness. Psychiatric/Behavioral: Negative for memory loss. The patient is not nervous/anxious. documented in this encounter* Milka Rodriguez MD - 10/07/2020 2:46 PM EDT [facility] Subjective Michelle Jules is a 55 y.o. female seen in the office today for Follow-up (pre op clearance ) HPI: HPI Michelle Jules is a 55 y.o. female with a past medical history of nonischemic cardiomyopathy (ICD) recovered EF, hyperlipidemia, hypertension, 2 diabetes, obesity, GERD, depression who was referred toour office for preop clearance for right knee surgery by Dr. Yeboah. She has not returned to the sleep lab to get CPAP titrated. We will call sleep lab to see what the issue is for her not getting scheduled. She states that she does her housework she can vacuum and sweep and mop without getting any chest pain or shortness of breath. She said she walks a mile every day without any symptoms. She was last seen here on 08/21/2019 for cardiac clearance before left knee surgery. Echocardiogram was ordered at that time. Echocardiogram on 08/31/2019 showed an ejection fraction of 45 to 50% with no regional wall motion abnormalities. Trace tricuspid valve regurgitation. Histories: History reviewed. No pertinent past medical history. Past Surgical History: Procedure Laterality Date CARDIAC CATHETERIZATION CARDIAC PACEMAKER PLACEMENT CAROTID STENT Family History Problem Relation Age of Onset Diabetes Mother Heart attack Mother Hyperlipidemia Mother Hypertension Mother Heart attack Father Hyperlipidemia Father Hypertension Sister Diabetes Maternal Grandmother Heart attack Maternal Grandmother Heart failure Maternal Grandmother Hyperlipidemia Maternal Grandmother Stroke Maternal Grandmother Social History Tobacco Use Smoking status: Never Smoker Smokeless tobacco: Never Used Substance Use Topics Alcohol use: Not Currently Drug use: Never Patient's Medications New Prescriptions No medications on file Previous Medications ALBUTEROL 90 MCG/ACTUATION INHALER Inhale 2 puffs every 6 (six) hours as needed for wheezing . ALOGLIPTIN (NESINA) 25 MG TAB Take 25 mg by mouth daily . ASPIRIN 81 MG EC TABLET Take 1 (one) tablet (81 mg total) by mouth daily . ATORVASTATIN (LIPITOR) 10 MG TABLET Take 1 (one) tablet (10 mg total) by mouth daily . BACLOFEN (LIORESAL) 10 MG TABLET Take 10 mg by mouth nightly as needed . CARVEDILOL (COREG) 25 MG TABLET Take 1 (one) tablet (25 mg total) by mouth 2 (two) times a day . DOK 100 MG CAPSULE TAKE ONE CAPSULE BY MOUTH TWICE DAILY ENALAPRIL (VASOTEC) 2.5 MG TABLET Take 2.5 mg by mouth daily . ERGOCALCIFEROL (VITAMIN D2) 1,250 MCG (50,000 UNIT) CAPSULE Take 50,000 Units by mouth once a week . FEXOFENADINE (BETINA) 180 MG TABLET Take 180 mg by mouth daily . FLUTICASONE PROPIONATE (FLONASE) 50 MCG/ACTUATION NASAL SPRAY Instill 2 sprays into each nostril daily . FUROSEMIDE (LASIX) 40 MG TABLET Take 1 (one) tablet (40 mg total) by mouth 2 (two) times a day . HYDROXYZINE (ATARAX) 25 MG TABLET Take 25 mg by mouth daily . INSULIN GLARGINE (LANTUS) 100 UNIT/ML (3 ML) INPN Inject 70 Units under the skin nightly . INSULIN LISPRO 100 UNIT/ML INPN Inject under the skin . LOSARTAN (COZAAR) 25 MG TABLET Take 0.5 (one-half) tablet (12.5 mg total) by mouth daily . MAGNESIUM OXIDE (MAG-OX) 400 MG (241.3 MG MAGNESIUM) TABLET Take 1 (one) tablet (400 mg total) by mouth daily . METAFOLBIC PLUS 600-2-6 MG TAB OXYBUTYNIN (DITROPAN XL) 15 MG 24 HR TABLET Take 15 mg by mouth daily . PANTOPRAZOLE (PROTONIX) 40 MG TABLET Take 40 mg by mouth daily . POLYETHYLENE GLYCOL (MIRALAX) 17 GRAM POWDER Take 17 g by mouth daily . PRAMIPEXOLE (MIRAPEX) 0.75 MG TABLET Take 0.75 mg by mouth nightly . SERTRALINE (ZOLOFT) 100 MG TABLET Take 100 mg by mouth daily . SPIRONOLACTONE (ALDACTONE) 25 MG TABLET Take 1 (one) tablet (25 mg total) by mouth daily . TRIAMCINOLONE (KENALOG) 0.1 % OINTMENT Modified Medications No medications on file Discontinued Medications No medications on file Allergies Allergen Reactions Latex Metformin Simvastatin Review of Systems Constitution: Negative for diaphoresis, malaise/fatigue, weight gain and weight loss. HENT: Negative for hearing loss, nosebleeds and tinnitus. Eyes: Negative for blurred vision and visual disturbance. Cardiovascular: Negative for chest pain, claudication, cyanosis, dyspnea on exertion, irregular heartbeat, leg swelling, near-syncope, orthopnea, palpitations, paroxysmal nocturnal dyspnea and syncope. Respiratory: Negative for hemoptysis, shortness of breath and snoring. Endocrine: Negative for cold intolerance and heat intolerance. Hematologic/Lymphatic: Does not bruise/bleed easily. Skin: Negative for flushing, poor wound healing and rash. Musculoskeletal: Negative for back pain, muscle weakness and myalgias. Gastrointestinal: Negative for abdominal pain, change in bowel habit, melena, nausea and vomiting. Genitourinary: Negative for decreased libido and hematuria. Neurological: Negative for loss of balance and numbness. Psychiatric/Behavioral: Negative for memory loss. The patient is not nervous/anxious. Objective Physical Exam Constitutional: She is oriented to person, place, and time. She appears well- developed and well-nourished. obese HENT: Head: Normocephalic and atraumatic. Eyes: Conjunctivae and lids are normal. Right eye exhibits no discharge. Left eye exhibits no discharge. Neck: No JVD present. Carotid bruit is not present. Cardiovascular: Normal rate, regular rhythm, normal heart sounds and normal pulses. No murmur heard. Pulmonary/Chest: Effort normal and breath sounds normal. No respiratory distress. She has no wheezes. She has no rales. Abdominal: Soft. Bowel sounds are normal. She exhibits no mass. There is no hepatosplenomegaly. There is no abdominal tenderness. Musculoskeletal: Normal range of motion. General: No edema. Neurological: She is alert and oriented to person, place, and time. Gait normal. Skin: Skin is warm and intact. No rash noted. Psychiatric: She has a normal mood and affect. Her behavior is normal. Vitals reviewed. Vitals: BP 126/73 (BP Location: Left arm, Patient Position: Sitting) Pulse 71 Ht 5' 9 Wt 114.5 kg (252 lb 8 oz) SpO2 97% BMI 37.29 kg/m EKG Interpretation: NSR v paced Lab Review: 09/08/2020 CBC within normal limits BMP within normal limits except glucose 111 AST ALT normal triglycerides 118 LDL 85 HDL 40 vitamin D level normal iron normal vitamin B12 normal TSH normal Assessment & Plan: Patient is acceptable risk for surgery she may proceed without any further cardiac work-up Obstructive sleep apnea She has not received her second study to get CPAP titrated We will call the sleep lab to see if we can get scheduled Obesity Recommend weight loss and exercise program Nonischemic cardiomyopathy (HCC) Nonischemic cardiomyopathy, functional class II. Recovered ejection fraction 45 to 50% now. She is euvolemic on exam. Continue carvedilol, Aldactone and losartan at current doses. Continue Lasix 40 mg twice daily Follow-up in a year or sooner if needed. Benign essential HTN Controlled, no changes. ICD (implantable cardioverter-defibrillator) in place [email or web address]. Enrolled in our device clinic. No events on last interrogation. Other Tests Ordered: No orders of the defined types were placed in this encounter. Follow-Up Ordered: No follow-ups on file. Milka Rodriguez MD [facility] [address] [place] [address] * Krupa Hercules MA - 10/07/2020 2:29 PM EDT Review of Systems Constitution: Negative for diaphoresis, malaise/fatigue, weight gain and weight loss. HENT: Negative for hearing loss, nosebleeds and tinnitus. Eyes: Negative for blurred vision and visual disturbance. Cardiovascular: Negative for chest pain, claudication, cyanosis, dyspnea on exertion, irregular heartbeat, leg swelling, near-syncope, orthopnea, palpitations, paroxysmal nocturnal dyspnea and syncope. Respiratory: Negative for hemoptysis, shortness of breath and snoring. Endocrine: Negative for cold intolerance and heat intolerance. Hematologic/Lymphatic: Does not bruise/bleed easily. Skin: Negative for flushing, poor wound healing and rash. Musculoskeletal: Negative for back pain, muscle weakness and myalgias. Gastrointestinal: Negative for abdominal pain, change in bowel habit, melena, nausea and vomiting. Genitourinary: Negative for decreased libido and hematuria. Neurological: Negative for loss of balance and numbness. Psychiatric/Behavioral: Negative for memory loss. The patient is not nervous/anxious. documented in this encounter Assessments Diagnosis Well woman exam with routine gynecological exam- Primary Routine gynecological examination BMI 33.0-33.9,adult Body Mass Index 33.0-33.9, adult Screen for STD (sexually transmitted disease) Screening examination for venereal disease Stress incontinence Female stress incontinence Diagnosis Type 2 diabetes mellitus without complication, without long-term current use of insulin (HCC) Diagnosis Trichomonal vaginitis Trichomonal vulvovaginitis Diagnosis Other eczema Pre-operative clearance Preoperative examination, unspecified Diagnosis Benign essential HTN Dyslipidemia Other and unspecified hyperlipidemia Pre-operative cardiovascular examination Pacemaker Cardiac pacemaker in situ Nonischemic cardiomyopathy (HCC) Other primary cardiomyopathies ICD (implantable cardioverter-defibrillator) in place Gastroesophageal reflux disease without esophagitis Esophageal reflux Depression, unspecified depression type Establishing care with new doctor, encounter for MCKNIGHT (dyspnea on exertion) Other dyspnea and respiratory abnormality Diagnosis MCKNIGHT (dyspnea on exertion) Other dyspnea and respiratory abnormality Nonischemic cardiomyopathy (HCC) Other primary cardiomyopathies Diagnosis PAXTON (obstructive sleep apnea) Obstructive sleep apnea (adult) (pediatric) Nonischemic cardiomyopathy (HCC) Other primary cardiomyopathies Diagnosis Nonischemic cardiomyopathy (HCC) Other primary cardiomyopathies Diagnosis Benign essential HTN- Primary Diagnosis Type 2 diabetes mellitus without complication, with long-term current use of insulin (HCC) Type 2 diabetes mellitus without complication, without long-term current use of insulin (HCC) Diagnosis Dyslipidemia- Primary Other and unspecified hyperlipidemia Nonischemic cardiomyopathy (HCC) Other primary cardiomyopathies Diagnosis ICD (implantable cardioverter-defibrillator) in place- Primary Nonischemic cardiomyopathy (HCC) Other primary cardiomyopathies Dyslipidemia Other and unspecified hyperlipidemia Preoperative cardiovascular examination Pre-operative cardiovascular examination Reason for Referral Status Reason Specialty Diagnoses / Procedures Referred By Contact Referred To Contact Authorized Established Physician Relationship Diagnoses Nonischemic cardiomyopathy (HCC) MCKNIGHT (dyspnea on exertion) Procedures Echocardiogram complete Milka Jacques MD [address] [place] [address] [facility]) - Outpatient [facility] [address] [place] [address] Status Reason Specialty Diagnoses / Procedures Referred By Contact Referred To Contact Authorized Diagnoses PAXTON (obstructive sleep apnea) Procedures Nocturnal pulse oximetry Abbey Oliveira, MED SPA MANAGER [address] [place] [address] Specialty Diagnoses / Procedures Referred By Contac t Referred To Contact Cardiology Diagnoses Nonischemic cardiomyopathy (HCC) Procedures ECG 12 lead Abbey Oliveira CNP [address] [place] [address] Referral ID Status Reason Start Date Expiration Date V isits Requested Visits Authorized [id number] Authorized 10/13/2021 10/13/2022 1 1 Description No Information Available Specialty Diagnoses / Procedures Referred By Remyac t Referred To Contact Gastroenterology Diagnoses Colon cancer screening Family history of colon cancer Procedures CONSULT TO GASTROENTEROLOGY OFFICE/OUTPATIENT [facility] 60-74 MINUTES Edgard Barnett MD [address] [place] [address] Referral ID Status Reason Start Date Expiration Date Visits Requested Visits Authorized [id number] Outside PCP PCP Requested Referral 01/22/2023 01/22/2024 1 1 Specialty Diagnoses / Procedures Referred By Remyac t Referred To Contact [facility] Diagnoses Encounter for screening mammogram for breast cancer Procedures [place] SCREENING SCREENING MAMMOGRAPHY BI 2-VIEW BREAST INC CAD Edgard Barnett MD [address] [place] [address] [facility] [address] [place] [address] Referral ID Status Reason Start Date Expiration Date Visits Requested Visits Authorized [id number] Outside PCP Auto-Generat ed Referral 01/22/2023 02/21/2024 1 1 Specialty Diagnoses / Procedures Referred By Remyac t Referred To Contact Ophthalmology Diagnoses Screening for diabetic retinopathy Procedures CONSULT TO OPHTHALMOLOGY OFFICE/OUTPATIENT [facility] 60-74 MINUTES Edgard Barnett MD [address] [address] Referral ID Status Reason Start Date Expiration Date Visits Requested Visits Authorized [id number] Outside PCP PCP Requested Referral 01/22/2023 01/22/2024 1 1 Specialty Diagnoses / Procedures Referred By Contac t Referred To Contact Diagnoses NICM (nonischemic cardiomyopathy) (HCC) Procedures CONSULT TO [facility] (AG) Ronny Wheeler MD [address] [place] [address] Referral ID Status Reason Start Date Expiration Date V isits Requested Visits Authorized [id number] Ref Not Required 01/29/2023 03/30/2023 1 1 Specialty Diagnoses / Procedures Referred By Contac t Referred To [facility] Diagnoses NICM (nonischemic cardiomyopathy) (HCC) Procedures ECHO ECHO TTHRC R-T 2D W/WOM-MODE COMPL SPEC&COLR D Ronny Wheeler MD [address] [place] [address] [facility] [address] [place] [address] Referral ID Status Reason Start Date Expiration Date Visits Requested Visits Authorized [id number] Pending Review Auto-Generat ed Referral 01/29/2023 01/29/2024 1 1 Specialty Diagnoses / Procedures Referred By Contac t Referred To Contact Diagnoses Anxiety with depression Procedures [facility]ULT [facility] Gifty Thornton DO [address] [place] [address] Referral ID Status Reason Start Date Expiration Date Visits Requested Visits Authorized [id number] Ref Not Required PCP Requested Referral 08/30/2023 11/28/2023 1 1 Chief Complaint and Reason for Visit Chief Complaint E11.9,Z79.4,I10,R60. 0,E55.9 R74.8 R74.8 RT HEEL L arm laceration Chief Complaint E11.9,Z79.4,I10,R60. 0,E55.9 R74.8 R74.8 L arm laceration RT HEEL Chief Complaint Toe bleeding Chief Complaint Admit Date STOCK CHECKERER EST CARE-PPW GIVEN August 05, 2024 2:11pm 1 M FU September 07, 2024 11:11am Diabetes October 15, 2024 10:0 4am 6 wk fu October 19, 2024 10:1 1am 6 M FU November 04, 2024 10: 04am defibrillator noise November 07, 2024 7:1 3pm Pacer Check Remote November 09, 2024 9:0 0am NEW ENROLLEE SCRUBBER SYSTEM ATTENDANT-D November 09, 2024 10: 07am SEPSIS November 20, 2024 4:25pm Reason for Visit Admit Date Anxiety August 05, 2024 2 :11pm Cardiomyopathy, ischemic August 05 025 2:11pm GERD (gastroesophageal reflux disease) J anuary 2024 2:11pm RLS (restless legs syndrome) July 2:11pm Vitamin D deficiency August 05, 2024 2:11pm HTN (hypertension) August 05, 2024 2 :11pm Type 2 diabetes mellitus wit h diabetic neuropathy, unspecified August 05, 2024 2:11pm PAXTON (obstructive sleep apnea) August 052024 2:11pm Encounter for screening for malignant ne oplasm of colon August 05, 2024 2:11pm Immunization due August 05, 2024 2 :11pm Establishing care with new doctor, [place] for August 05, 2024 2:11pm Screening for malignant neoplasm of cerv ix August 05, 2024 2:11pm Screening for breast cancer July 2:11pm Anxiety September 07, 2024 11:11am Cardiomyopathy, ischemic September 07, 2024 11:11am GERD (gastroesophageal reflux disease) F ebruary 2024 11:11am RLS (restless legs syndrome) September 072024 11:11am Vitamin D deficiency September 07, 2024 11:11am HTN (hypertension) September 07, 2024 11:11am Type 2 diabetes mellitus wit h diabetic neuropathy, unspecified September 07, 2024 11:11am PAXTON (obstructive sleep apnea) August 162024 11:11am HTN (hypertension) October 15, 2024 10:0 4am Hyperlipidemia October 15, 2024 10:0 4am Neuropathy October 15, 2024 10:0 4am Obesity October 15, 2024 10:0 4am Type 2 diabetes mellitus wit h diabetic neuropathy, unspecified October 15, 2024 10:04am Vaginal yeast infection October 15, 2024 10:04am Anxiety October 19, 2024 10:1 1am Cardiomyopathy, ischemic October 19, 2024 10:11am GERD (gastroesophageal reflux disease) A pril 2024 10:11am RLS (restless legs syndrome) October 19, 2024 10:11am HTN (hypertension) October 19, 2024 10:1 1am Type 2 diabetes mellitus wit h diabetic neuropathy, unspecified October 19, 2024 10:11am PAXTON (obstructive sleep apnea) October 19, 2024 10:11am History of placement of internal cardiac defibrillator November 04, 2024 10:04am Nonischemic dilated cardiomyopathy November 04, 2024 10:04am HTN (hypertension) November 04, 2024 10: 04am Nonischemic dilated cardiomyopathy November 09, 2024 10:07am Implantable cardioverter-defibrillator ( ICD) in situ November 09, 2024 10:07am Acute febrile illness November 20, 2024 4:25 pm Cardiomyopathy, ischemic November 20, 2024 4 :25pm Low back pain November 20, 2024 4:25pm Sepsis November 20, 2024 4:25pm Chief Complaint Admit Date STOCK CHECKERER EST CARE-PPW GIVEN August 05, 2024 2:11pm 1 M FU September 07, 2024 11:11am Diabetes October 15, 2024 10:0 4am 6 wk fu October 19, 2024 10:1 1am 6 M FU November 04, 2024 10: 04am defibrillator noise November 07, 2024 7:1 3pm Pacer Check Remote November 09, 2024 9:0 0am NEW ENROLLEE SCRUBBER SYSTEM ATTENDANT-D November 09, 2024 10: 07am SEPSIS OF UNCLEAR ORIGIN November 20, 2024 6 :37pm SEPSIS OF UNCLEAR ORIGIN November 21, 2024 7:15am SEPSIS OF UNCLEAR ORIGIN November 22, 2024 8:01am SEPSIS OF UNCLEAR ORIGIN November 22, 2024 12:36pm SEPSIS OF UNCLEAR ORIGIN November 23, 2024 7:26am SEPSIS OF UNCLEAR ORIGIN November 23, 2024 7:46am SEPSIS OF UNCLEAR ORIGIN November 24, 2024 7:35am SEPSIS OF UNCLEAR ORIGIN November 24, 2024 7:36am SEPSIS OF UNCLEAR ORIGIN November 25, 2024 8:04am Reason for Visit Admit Date Anxiety August 05, 2024 2 :11pm Cardiomyopathy, ischemic August 05, 2 025 2:11pm GERD (gastroesophageal reflux disease) J anuary 2024 2:11pm RLS (restless legs syndrome) July 2:11pm Vitamin D deficiency August 05, 2024 2:11pm HTN (hypertension) August 05, 2024 2 :11pm Type 2 diabetes mellitus wit h diabetic neuropathy, unspecified August 05, 2024 2:11pm PAXTON (obstructive sleep apnea) August 052024 2:11pm Encounter for screening for malignant ne oplasm of colon August 05, 2024 2:11pm Immunization due August 05, 2024 2 :11pm Establishing care with new doctor, [place] for August 05, 2024 2:11pm Screening for malignant neoplasm of cerv ix August 05, 2024 2:11pm Screening for breast cancer July 2:11pm Anxiety September 07, 2024 11:11am Cardiomyopathy, ischemic September 07, 2024 11:11am GERD (gastroesophageal reflux disease) F ebruary 2024 11:11am RLS (restless legs syndrome) September 072024 11:11am Vitamin D deficiency September 07, 2024 11:11am HTN (hypertension) September 07, 2024 11:11am Type 2 diabetes mellitus wit h diabetic neuropathy, unspecified September 07, 2024 11:11am PAXTON (obstructive sleep apnea) August 162024 11:11am HTN (hypertension) October 15, 2024 10:0 4am Hyperlipidemia October 15, 2024 10:0 4am Neuropathy October 15, 2024 10:0 4am Obesity October 15, 2024 10:0 4am Type 2 diabetes mellitus wit h diabetic neuropathy, unspecified October 15, 2024 10:04am Vaginal yeast infection October 15, 2024 10:04am Anxiety October 19, 2024 10:1 1am Cardiomyopathy, ischemic October 19, 2024 10:11am GERD (gastroesophageal reflux disease) A pril 2024 10:11am RLS (restless legs syndrome) October 19, 2024 10:11am HTN (hypertension) October 19, 2024 10:1 1am Type 2 diabetes mellitus wit h diabetic neuropathy, unspecified October 19, 2024 10:11am PAXTON (obstructive sleep apnea) October 19, 2024 10:11am History of placement of internal cardiac defibrillator November 04, 2024 10:04am Nonischemic dilated cardiomyopathy November 04, 2024 10:04am HTN (hypertension) November 04, 2024 10: 04am Nonischemic dilated cardiomyopathy November 09, 2024 10:07am Implantable cardioverter-defibrillator ( ICD) in situ November 09, 2024 10:07am Acute febrile illness November 20, 2024 6:37 pm Bacteremia November 20, 2024 6:37pm Cardiomyopathy, ischemic November 20, 2024 6 :37pm Diabetes mellitus November 20, 2024 6:37pm History of placement of internal cardiac defibrillator November 20, 2024 6:37pm Low back pain November 20, 2024 6:37pm MRSA bacteremia November 20, 2024 6:37pm Nonischemic cardiomyopathy November 20, 2024 6:37pm Sepsis November 20, 2024 6:37pm Shock November 20, 2024 6:37pm Chief Complaint Admit Date STOCK CHECKERER EST CARE-PPW GIVEN August 05, 2024 2:11pm 1 M FU September 07, 2024 11:11am Diabetes October 15, 2024 10:0 4am 6 wk fu October 19, 2024 10:1 1am 6 M FU November 04, 2024 10: 04am defibrillator noise November 07, 2024 7:1 3pm Pacer Check Remote November 09, 2024 9:0 0am NEW ENROLLEE SCRUBBER SYSTEM ATTENDANT-D November 09, 2024 10: 07am SEPSIS OF UNCLEAR ORIGIN November 20, 2024 6 :37pm SEPSIS OF UNCLEAR ORIGIN November 21, 2024 7:15am SEPSIS OF UNCLEAR ORIGIN November 22, 2024 8:01am SEPSIS OF UNCLEAR ORIGIN November 22, 2024 12:36pm SEPSIS OF UNCLEAR ORIGIN November 23, 2024 7:26am SEPSIS OF UNCLEAR ORIGIN November 23, 2024 7:46am SEPSIS OF UNCLEAR ORIGIN November 24, 2024 7:35am SEPSIS OF UNCLEAR ORIGIN November 24, 2024 7:36am SEPSIS OF UNCLEAR ORIGIN November 25, 2024 8:04am SEPSIS OF UNCLEAR ORIGIN November 26, 2024 12:19pm ANTIBIOTICS November 27, 2024 9:27p m Chief Complaint Admit Date STOCK CHECKERER EST CARE-PPW GIVEN August 05, 2024 2:11pm 1 M FU September 07, 2024 11:11am Diabetes October 15, 2024 10:0 4am 6 wk October 19, 2024 10:1 1am 6 M FU November 04, 2024 10: 04am defibrillator noise November 07, 2024 7:1 3pm Pacer Check Remote November 09, 2024 9:0 0am NEW ENROLLEE SCRUBBER SYSTEM ATTENDANT-D November 09, 2024 10: 07am SEPSIS OF UNCLEAR ORIGIN November 20, 2024 6 :37pm SEPSIS OF UNCLEAR ORIGIN November 21, 2024 7:15am SEPSIS OF UNCLEAR ORIGIN November 22, 2024 8:01am SEPSIS OF UNCLEAR ORIGIN November 22, 2024 12:36pm SEPSIS OF UNCLEAR ORIGIN November 23, 2024 7:26am SEPSIS OF UNCLEAR ORIGIN November 23, 2024 7:46am SEPSIS OF UNCLEAR ORIGIN November 24, 2024 7:35am SEPSIS OF UNCLEAR ORIGIN November 24, 2024 7:36am SEPSIS OF UNCLEAR ORIGIN November 25, 2024 8:04am SEPSIS OF UNCLEAR ORIGIN November 26, 2024 12:19pm ANTIBIOTICS November 27, 2024 9:27p m activase to each lumen of PICC line December 01, 2024 12:02pm Chief Complaint Admit Date 1 M FU September 07, 2024 11:11am Diabetes October 15, 2024 10:0 4am 6 wk fu October 19, 2024 10:1 1am 6 M FU November 04, 2024 10: 04am defibrillator noise November 07, 2024 7:1 3pm Pacer Check Remote November 09, 2024 9:0 0am NEW ENROLLEE SCRUBBER SYSTEM ATTENDANT-D November 09, 2024 10: 07am SEPSIS OF UNCLEAR ORIGIN November 20, 2024 6 :37pm SEPSIS OF UNCLEAR ORIGIN November 21, 2024 7:15am SEPSIS OF UNCLEAR ORIGIN November 22, 2024 8:01am SEPSIS OF UNCLEAR ORIGIN November 22, 2024 12:36pm SEPSIS OF UNCLEAR ORIGIN November 23, 2024 7:26am SEPSIS OF UNCLEAR ORIGIN November 23, 2024 7:46am SEPSIS OF UNCLEAR ORIGIN November 24, 2024 7:35am SEPSIS OF UNCLEAR ORIGIN November 24, 2024 7:36am SEPSIS OF UNCLEAR ORIGIN November 25, 2024 8:04am SEPSIS OF UNCLEAR ORIGIN November 26, 2024 12:19pm ANTIBIOTICS November 27, 2024 9:27p m activase to each lumen of PICC line December 01, 2024 12:02pm Reason for Visit Admit Date Anxiety September 07, 2024 11:11am GERD (gastroesophageal reflux disease) F ebruary 2024 11:11am RLS (restless legs syndrome) September 072024 11:11am Vitamin D deficiency September 07, 2024 11:11am HTN (hypertension) September 07, 2024 11:11am Type 2 diabetes mellitus wit h diabetic neuropathy, unspecified September 07, 2024 11:11am Cardiomyopathy, ischemic September 07, 2024 11:11am PAXTON (obstructive sleep apnea) August 162024 11:11am HTN (hypertension) October 15, 2024 10:0 4am Hyperlipidemia October 15, 2024 10:0 4am Neuropathy October 15, 2024 10:0 4am Obesity October 15, 2024 10:0 4am Type 2 diabetes mellitus wit h diabetic neuropathy, unspecified October 15, 2024 10:04am Vaginal yeast infection October 15, 2024 10:04am Anxiety October 19, 2024 10:1 1am GERD (gastroesophageal reflux disease) A pril 2024 10:11am RLS (restless legs syndrome) October 19, 2024 10:11am HTN (hypertension) October 19, 2024 10:1 1am Type 2 diabetes mellitus wit h diabetic neuropathy, unspecified October 19, 2024 10:11am Cardiomyopathy, ischemic October 19, 2024 10:11am PAXTON (obstructive sleep apnea) October 19, 2024 10:11am Nonischemic dilated cardiomyopathy November 04, 2024 10:04am HTN (hypertension) November 04, 2024 10: 04am History of placement of internal cardiac defibrillator November 04, 2024 10:04am Nonischemic dilated cardiomyopathy November 09, 2024 10:07am Implantable cardioverter-defibrillator ( ICD) in situ November 09, 2024 10:07am Acute febrile illness November 20, 2024 6:37 pm Sepsis November 20, 2024 6:37pm Shock November 20, 2024 6:37pm Bacteremia November 20, 2024 6:37pm Cardiomyopathy, ischemic November 20, 2024 6 :37pm Diabetes mellitus November 20, 2024 6:37pm History of placement of internal cardiac defibrillator November 20, 2024 6:37pm Low back pain November 20, 2024 6:37pm MRSA bacteremia November 20, 2024 6:37pm Nonischemic cardiomyopathy November 20, 2024 6:37pm Chief Complaint Admit Date 1 M FU September 07, 2024 11:11am Diabetes October 15, 2024 10:0 4am 6 wk fu October 19, 2024 10:1 1am 6 M FU November 04, 2024 10: 04am defibrillator noise November 07, 2024 7:1 3pm Pacer Check Remote November 09, 2024 9:0 0am NEW ENROLLEE SCRUBBER SYSTEM ATTENDANT-D November 09, 2024 10: 07am SEPSIS OF UNCLEAR ORIGIN November 20, 2024 6 :37pm SEPSIS OF UNCLEAR ORIGIN November 21, 2024 7:15am SEPSIS OF UNCLEAR ORIGIN November 22, 2024 8:01am SEPSIS OF UNCLEAR ORIGIN November 22, 2024 12:36pm SEPSIS OF UNCLEAR ORIGIN November 23, 2024 7:26am SEPSIS OF UNCLEAR ORIGIN November 23, 2024 7:46am SEPSIS OF UNCLEAR ORIGIN November 24, 2024 7:35am SEPSIS OF UNCLEAR ORIGIN November 24, 2024 7:36am SEPSIS OF UNCLEAR ORIGIN November 25, 2024 8:04am SEPSIS OF UNCLEAR ORIGIN November 26, 2024 12:19pm ANTIBIOTICS November 27, 2024 9:27p m activase to each lumen of PICC line December 01, 2024 12:02pm HOSP FU December 09, 2024 11:01 am Reason for Visit Admit Date Anxiety September 07, 2024 11:11am GERD (gastroesophageal reflux disease) F ebruary 2024 11:11am RLS (restless legs syndrome) September 072024 11:11am Vitamin D deficiency September 07, 2024 11:11am HTN (hypertension) September 07, 2024 11:11am Type 2 diabetes mellitus wit h diabetic neuropathy, unspecified September 07, 2024 11:11am Cardiomyopathy, ischemic September 07, 2024 11:11am PAXTON (obstructive sleep apnea) August 162024 11:11am HTN (hypertension) October 15, 2024 10:0 4am Hyperlipidemia Alison 3rd, 2025 10:0 4am Neuropathy October 15, 2024 10:0 4am Obesity October 15, 2024 10:0 4am Type 2 diabetes mellitus wit h diabetic neuropathy, unspecified October 15, 2024 10:04am Vaginal yeast infection October 15, 2024 10:04am Anxiety October 19, 2024 10:1 1am GERD (gastroesophageal reflux disease) A pril 2024 10:11am RLS (restless legs syndrome) October 19, 2024 10:11am HTN (hypertension) October 19, 2024 10:1 1am Type 2 diabetes mellitus wit h diabetic neuropathy, unspecified October 19, 2024 10:11am Cardiomyopathy, ischemic October 19, 2024 10:11am PAXTON (obstructive sleep apnea) October 19, 2024 10:11am Nonischemic dilated cardiomyopathy November 04, 2024 10:04am HTN (hypertension) November 04, 2024 10: 04am History of placement of internal cardiac defibrillator November 04, 2024 10:04am Nonischemic dilated cardiomyopathy November 09, 2024 10:07am Implantable cardioverter-defibrillator ( ICD) in situ November 09, 2024 10:07am MRSA bacteremia November 20, 2024 6:37pm Acute febrile illness November 20, 2024 6:37 pm Sepsis November 20, 2024 6:37pm Shock November 20, 2024 6:37pm Bacteremia November 20, 2024 6:37pm Cardiomyopathy, ischemic November 20, 2024 6 :37pm Diabetes mellitus November 20, 2024 6:37pm History of placement of internal cardiac defibrillator November 20, 2024 6:37pm Low back pain November 20, 2024 6:37pm Nonischemic cardiomyopathy November 20, 2024 6:37pm MRSA bacteremia December 09, 2024 11:01 am Chief Complaint Admit Date 1 M FU September 07, 2024 11:11am Diabetes October 15, 2024 10:0 4am 6 wk fu October 19, 2024 10:1 1am 6 M FU November 04, 2024 10: 04am defibrillator noise November 07, 2024 7:1 3pm Pacer Check Remote November 09, 2024 9:0 0am NEW ENROLLEE SCRUBBER SYSTEM ATTENDANT-D November 09, 2024 10: 07am SEPSIS OF UNCLEAR ORIGIN November 20, 2024 6 :37pm SEPSIS OF UNCLEAR ORIGIN November 21, 2024 7:15am SEPSIS OF UNCLEAR ORIGIN November 22, 2024 8:01am SEPSIS OF UNCLEAR ORIGIN November 22, 2024 12:36pm SEPSIS OF UNCLEAR ORIGIN November 23, 2024 7:26am SEPSIS OF UNCLEAR ORIGIN November 23, 2024 7:46am SEPSIS OF UNCLEAR ORIGIN November 24, 2024 7:35am SEPSIS OF UNCLEAR ORIGIN November 24, 2024 7:36am SEPSIS OF UNCLEAR ORIGIN November 25, 2024 8:04am SEPSIS OF UNCLEAR ORIGIN November 26, 2024 12:19pm ANTIBIOTICS November 27, 2024 9:27p m activase to each lumen of PICC line December 01, 2024 12:02pm HOSP FU December 09, 2024 11:01 am 8 WK FU December 10, 2024 10:21 am Reason for Visit Admit Date Anxiety September 07, 2024 11:11am GERD (gastroesophageal reflux disease) F ebruary 2024 11:11am RLS (restless legs syndrome) September 072024 11:11am Vitamin D deficiency September 07, 2024 11:11am HTN (hypertension) September 07, 2024 11:11am Type 2 diabetes mellitus wit h diabetic neuropathy, unspecified September 07, 2024 11:11am Cardiomyopathy, ischemic September 07, 2024 11:11am PAXTON (obstructive sleep apnea) August 162024 11:11am HTN (hypertension) October 15, 2024 10:0 4am Hyperlipidemia October 15, 2024 10:0 4am Neuropathy October 15, 2024 10:0 4am Obesity October 15, 2024 10:0 4am Type 2 diabetes mellitus wit h diabetic neuropathy, unspecified October 15, 2024 10:04am Vaginal yeast infection October 15, 2024 10:04am Anxiety October 19, 2024 10:1 1am GERD (gastroesophageal reflux disease) A pril 2024 10:11am RLS (restless legs syndrome) October 19, 2024 10:11am HTN (hypertension) October 19, 2024 10:1 1am Type 2 diabetes mellitus wit h diabetic neuropathy, unspecified October 19, 2024 10:11am Cardiomyopathy, ischemic October 19, 2024 10:11am PAXTON (obstructive sleep apnea) October 19, 2024 10:11am Nonischemic dilated cardiomyopathy November 04, 2024 10:04am HTN (hypertension) November 04, 2024 10: 04am History of placement of internal cardiac defibrillator November 04, 2024 10:04am Nonischemic dilated cardiomyopathy November 09, 2024 10:07am Implantable cardioverter-defibrillator ( ICD) in situ November 09, 2024 10:07am MRSA bacteremia November 20, 2024 6:37pm Acute febrile illness November 20, 2024 6:37 pm Sepsis November 20, 2024 6:37pm Shock November 20, 2024 6:37pm Bacteremia November 20, 2024 6:37pm Cardiomyopathy, ischemic November 20, 2024 6 :37pm Diabetes mellitus November 20, 2024 6:37pm History of placement of internal cardiac defibrillator November 20, 2024 6:37pm Low back pain November 20, 2024 6:37pm Nonischemic cardiomyopathy November 20, 2024 6:37pm MRSA bacteremia December 09, 2024 11:01 am HTN (hypertension) December 10, 2024 10:21 am Hyperlipidemia December 10, 2024 10:21 am Obesity December 10, 2024 10:21 am Type 2 diabetes mellitus wit h diabetic neuropathy, unspecified December 10, 2024 10:21am Additional Source Comments INFORMATION SOURCE (unrecogn ized section and content) DATE CREATED AUTHOR 01/08/2018 [facility] DATE CREATED AUTHOR AUTHOR'S ORGANIZ ATION 06/23/2018 [facility] DATE CREATED AUTHOR AUTHOR'S ORGANIZ ATION 03/06/2019 [facility] DATE CREATED AUTHOR AUTHOR'S ORGANIZ ATION 04/21/2022 [facility] DATE CREATED AUTHOR AUTHOR'S ORGANIZ ATION 05/08/2022 [facility] DATE CREATED AUTHOR AUTHOR'S ORGANIZ ATION 09/20/2022 [facility] DATE CREATED AUTHOR AUTHOR'S ORGANIZ ATION 09/20/2022 [facility] DATE CREATED AUTHOR AUTHOR'S ORGANIZ ATION 11/18/2022 [facility] DATE CREATED AUTHOR AUTHOR'S ORGANIZ ATION 12/15/2023 [facility] DATE CREATED AUTHOR AUTHOR'S ORGANIZ ATION 05/10/2024 [facility] DATE CREATED AUTHOR AUTHOR'S ORGANIZ ATION [facility]/20/[facility] Reason for Visit (unrecogniz ed section and content) Reason Comments Gynecologic Exam Reason Comments Medication Refill Reason Comments Results Reason Comments Surgical Clearance Reason Comments Establish Care cardiac clearance fo r knee scopt Status Reason Specialty Diagnoses / Procedures Referred By Contact Referred To Contact Closed Specialty Services Required/Patient 's Best Interest Cardiology Diagnoses Pre-operative cardiovascular examination Pacemaker David Silva MD [address] [place] [address] Milka Rodriguez MD [address] [place] [address] Reason Comments Other Reason Comments Follow-up 2wk f/u CHF Reason Comments Follow-up 2wk f/u heart failur e Reason Comments Follow-up 3mo f/u heart failur e Reason Onset Date Comments Medication Refill 07/29/2020 Reason Comments Follow-up pre op clearance Reason Comments Follow-up 1 yr f/u NON-ischemi c cardiomyopathy Reason Comments Follow-up 6 mht FU non-ischemi c cardiomyopathy/increased weight and edema per director case management Polina Reason Comments Appointment Reason Comments New Patient Reason Comments REFERRAL To Gastroenterology Reason Comments CARD New Patient Consult STOCK CHECKERER TO RE ESTABL [place] A-FIB Reason Comments Opened In Error Reason Comments Hypertension Diabetes Reason Onset Date Comments Refill Request 03/04/2023 One Touch Ultra Test Strips Reason Onset Date Comments Refill Request 03/12/2023 Reason Comments Diabetes Hypertension Reason Comments Refill Request Reason Onset Date Comments Refill Request 03/26/2023 Reason Comments Diabetes Reason Comments ICD Reason Comments Medication Authorization Ozempic 2 mg/ 3 mL pen Reason Onset Date Comments Flux Tube Attendant Chronic Care 04/05/2023 Intake Reason Onset Date Comments Flux Tube Attendant Chronic Care 04/19/2023 Attempted PCC follow up Reason Comments No Show Diabetes follow up Reason Comments No Show Reason Comments Medication Problem Reason Comments Patient Update Reason Comments Results Reason Onset Date Comments Flux Tube Attendant Chronic Care 06/18/2023 PCC follow up Reason Comments Medication Authorization Carlos schaeffer n 100unit/ml Reason Comments Patient Question Reason Onset Date Comments Flux Tube Attendant Chronic Care 06/27/2023 Attempted PCC follow up Reason Comments Follow Up Diabetes Reason Onset Date Comments Flux Tube Attendant Chronic Care 09/06/2023 Attempted PCC follow up Reason Comments Medication Authorization Victoza Reason Comments Medication Authorization Freestyle Lance 2 sensor Reason Onset Date Comments Flux Tube Attendant Chronic Care 09/20/2023 PCC follow up Reason Comments Remote Pacemaker Follow Up Reason Onset Date Comments Refill Request 10/22/2023 Reason Comments Diabetes Reason Comments Initial Consult Reason Comments Forms Specialty- glucose m onitor Reason Onset Date Comments Flux Tube Attendant Chronic Care 11/08/2023 PCC follow up Reason Comments Colonoscopy Referral Reason Onset Date Comments Refill Request 11/15/2023 Reason Comments Forms Specialty medical- g lucose monitor Reason Onset Date Comments Flux Tube Attendant Chronic Care 11/29/2023 PCC follow up Reason Onset Date Comments Flux Tube Attendant Chronic Care 12/06/2023 Attempted PCC follow up Reason Onset Date Comments Flux Tube Attendant Chronic Care 12/26/2023 PCC follow up Reason Onset Date Comments Flux Tube Attendant Chronic Care 12/27/2023 Attempted outreach Reason Comments Diabetes GERD Reports more frequen t heartburn Reason Onset Date Comments Flux Tube Attendant Chronic Care 12/30/2023 PCC follow up, patient updated on Victoza change Reason Onset Date Comments Flux Tube Attendant Chronic Care 01/07/2024 Pcc follow up Specialty Diagnoses / Procedures Referred By Contmercedes t Referred To Contact FAMILY MEDICINE Diagnoses office visit Procedures OFFICE VISIT, EST PT., LEVEL 2 TC Self Famp Acc Cfm [address] [place] [id number] Referral ID Status Reason Start Date Expiration Date Visits Requested Visits Authorized [id number] Outside PCP OON/Self Pay Override 12/24/2023 04/02/2025 1 1 Reason Comments Rx Refills Reason Onset Date Comments Flux Tube Attendant Chronic Care 02/13/2024 PCC follow up Reason Onset Date Comments Refill Request 02/12/2024 Reason Onset Date Comments Transition Of Care 02/26/2024 ER follow up, [place], 02/24/2024 Reason Comments Follow Up Insulin Usage Weight Problem Gain Reason Onset Date Comments Flux Tube Attendant Chronic Care 03/03/2024 Attempted to contact patient with PCP medication instruction Reason Onset Date Comments Refill Request 03/09/2024 Reason Onset Date Comments Flux Tube Attendant Chronic Care 03/19/2024 Attempted PCC follow up Reason Onset Date Comments Flux Tube Attendant Chronic Care 03/19/2024 PCC follow up Reason Onset Date Comments Flux Tube Attendant Chronic Care 04/03/2024 Attempted PCC follow up Reason Onset Date Comments Refill Request 04/07/2024 Reason Comments Patient Update No longer a patient Reason Onset Date Comments Flux Tube Attendant- Other 05/08/2024 Discharged new PCP Assessment & Plan Note - Abbey Oliveira CNP - 12/15/2019 11:55 AM EDTAssessment & Plan Note - Abbey Oliveira CNP - 12/29/2019 11:31 AM EDT Miscellaneous Notes (unrecog nized section and content) Associated Problem(s): Nonischemic cardiomyopathy (HCC) Ischemic cardiomyopathy, functional class II recovered ejection fraction 45 to 50% Continue carvedilol. Developed dry cough. Stop enalapril and start losartan 12.5 mg daily. Continue Aldactone at current dose. She sounds to be volume overloaded. She is complaining of a dry cough at night, orthopnea increased shortness of breath and abdominal fullness. She is up about 8 pounds since her last visit here. Increase Lasix to 80 mg daily. Labs before her follow-up appointment Follow-up in 2 weeks. Has device clinic next week. documented in this encounter Associated Problem(s): Nonischemic cardiomyopathy (HCC) Nonischemic cardiomyopathy, functional class II recovered ejection fraction 45 to 50%. Continue carvedilol, Aldactone and losartan. She developed a cough on enalapril. Overnight pulse ox ordered to screen for sleep apnea. She was diagnosed with that in the past and had been on CPAP. Encouraged her to have her labs done as soon as possible. Experimental Aircraft Mechanic can take her tomorrow at 9 AM. Continue Lasix at current dose 80 mg daily. Will reevaluate after she has her labs done and contact her with instructions. Keep follow-up appointment in device clinic. Follow-up in 3 months or sooner if needed. documented in this encounter Associated Problem(s): Nonischemic cardiomyopathy (HCC) Nonischemic cardiomyopathy, functional class II recovered ejection fraction 45 to 50%. Euvolemic on exam Continue carvedilol, Aldactone and losartan. She developed a cough on enalapril. Continue Lasix at current dose 80 mg daily. Keep follow-up appointment in device clinic. Follow-up in 4 months or sooner if needed. documented in this encounter She needs updated labs documented in this encounter Care Teams (unrecognized sec tion and content) Lead Simulation Modeling Engineer Relationship Specialty Start Date End Date No, Physician [facility] PCP - General 08/07/19 Lead Simulation Modeling Engineer Relationship Specialty Start Date End Date Ha Avelar APRN FAT PRESSROOM WORKER-C [address] [place] [address] PCP - General Family Medicine 05/11/19 Cam Quarles APRN MED SPA MANAGER [address] [place], [place] [id number] Nurse Practitioner 08/28/21 Lead Simulation Modeling Engineer Relationship Specialty Start Date End Date No, Physician [facility] PCP - General 08/07/19 Lead Simulation Modeling Engineer Relationship Specialty Start Date End Date No, Physician [facility] PCP - General 08/07/19 Lead Simulation Modeling Engineer Relationship Specialty Start Date End Date Ha Avelar APRN FAT PRESSROOM WORKER-C [address] [place] [address] PCP - General Family Medicine 05/11/19 Lead Simulation Modeling Engineer Relationship Specialty Start Date End Date No, Physician [facility] PCP - General 08/07/19 Lead Simulation Modeling Engineer Relationship Specialty Start Date End Date No, Physician [facility] PCP - General 08/07/19 Lead Simulation Modeling Engineer Relationship Specialty Start Date End Date No, Physician [facility] PCP - General 08/07/19 Lead Simulation Modeling Engineer Relationship Specialty Start Date End Date No, Physician [facility] PCP - General 08/07/19 Lead Simulation Modeling Engineer Relationship Specialty Start Date End Date No, Physician [facility] PCP - General 08/07/19 Lead Simulation Modeling Engineer Relationship Specialty Start Date End Date Homar Vasques MD [address] [facility] [place] [address] PCP - General Family Medicine 01/22/23 Du BoisAby, [facility] [address] [place] [address] Pharmacist Pharmacy 12/25/18 Williams Rubin MD [address] [place] [address] PCP Resident 01/22/23 Lead Simulation Modeling Engineer Relationship Specialty Start Date End Date Homar Vasques MD [address] [place] [address] PCP - General Family Medicine 01/22/23 Du BoisAby, [facility] [address] [place] [address] Pharmacist Pharmacy 12/25/18 Williams Rubin MD [address] [place] [address] PCP Resident 01/22/23 Lead Simulation Modeling Engineer Relationship Specialty Start Date End Date Homar Vasques MD [address] [place] [address] PCP - General Family Medicine 01/22/23 Du BoisAby, [facility] [address] [place] [address] Pharmacist Pharmacy 12/25/18 Williams Rubin MD [address] [place] [address] PCP Resident 01/22/23 Lead Simulation Modeling Engineer Relationship Specialty Start Date End Date Homar Vasques MD [address] [place] [address] PCP - General Family Medicine 01/22/23 Du BoisRebeccaAby, [facility] [address] [place] [address] Pharmacist Pharmacy 12/25/18 Williams Rubin MD [address] [place] [address] PCP Resident 01/22/23 Lead Simulation Modeling Engineer Relationship Specialty Start Date End Date Homar Vasques MD [address] [place] [address] PCP - General Family Medicine 01/22/23 [facility] [address] [place] [address] Pharmacist Pharmacy 12/25/18 Williams Rubin MD [address] [place] [address] PCP Resident 01/22/23 Lead Simulation Modeling Engineer Relationship Specialty Start Date End Date Homar Vasques MD [address] [place] [address] PCP - General Family Medicine 01/22/23 Du BoisRebeccaAby, [facility] [address] [place] [address] Pharmacist Pharmacy 12/25/18 Williams Rubin MD [address] [place] [address] PCP Resident 01/22/23 Lead Simulation Modeling Engineer Relationship Specialty Start Date End Date Homar Vasques MD [address] [place] [address] PCP - General Family Medicine 01/22/23 Du BoisAby, [facility] [address] [place] [address] Pharmacist Pharmacy 12/25/18 Williams Rubin MD [address] [place] [address] PCP Resident 01/22/23 Lead Simulation Modeling Engineer Relationship Specialty Start Date End Date Homar Vasques MD [address] [place], [place] [id number] PCP - General Family Medicine 01/22/23 [facility] [address] [place] [address] Pharmacist Pharmacy 12/25/18 Williams Rubin MD [address] [place] [address] PCP Resident 01/22/23 Lead Simulation Modeling Engineer Relationship Specialty Start Date End Date Homar Vasques MD [address] [place] [address] PCP - General Family Medicine 01/22/23 Du BoisAby, [facility] [address] [place] [address] Pharmacist Pharmacy 12/25/18 Williams Rubin MD [address] [place] [address] PCP Resident 01/22/23 Lead Simulation Modeling Engineer Relationship Specialty Start Date End Date Homar Vasques MD [address] [place] [address] PCP - General Family Medicine 01/22/23 JohnAby fair, [facility] [address] [place] [address] Pharmacist Pharmacy 12/25/18 Williams Rubin MD [address] [place] [address] PCP Resident 01/22/23 Lead Simulation Modeling Engineer Relationship Specialty Start Date End Date Homar Vasques MD [address] [place] [address] PCP - General Family Medicine 01/22/23 [facility] [address] [place] [address] Pharmacist Pharmacy 12/25/18 Williams Rubin MD [address] [place] [address] PCP Resident 01/22/23 Lead Simulation Modeling Engineer Relationship Specialty Start Date End Date Homar Vasques MD [address] [place] [address] PCP - General Family Medicine 01/22/23 Du BoisAby, [facility] [address] [place] [address] Pharmacist Pharmacy 12/25/18 Williams Rubin MD [address] [place] [address] PCP Resident 01/22/23 Lead Simulation Modeling Engineer Relationship Specialty Start Date End Date Homar Vasques MD [address] [place] [address] PCP - General Family Medicine 01/22/23 Aby Lopez, [facility] [address] [place] [address] Pharmacist Pharmacy 12/25/18 Williams Rubin MD [address] [place] [address] PCP Resident 01/22/23 Lead Simulation Modeling Engineer Relationship Specialty Start Date End Date Homar Vasques MD [address] [place] [address] PCP - General Family Medicine 01/22/23 [facility] [address] [place] [address] Pharmacist Pharmacy 12/25/18 Williams Rubin MD [address] [place] [address] PCP Resident Family Medicine 01/22/23 Lead Simulation Modeling Engineer Relationship Specialty Start Date End Date Homar Vasques MD [address] [place] [address] PCP - General Family Medicine 01/22/23 Du BoisAby, [facility] [address] [place] [address] Pharmacist Pharmacy 12/25/18 Williams Rubin MD [address] [place] [address] PCP Resident Family Medicine 01/22/23 Lead Simulation Modeling Engineer Relationship Specialty Start Date End Date Homar Vasques MD [address] [place] [address] PCP - General Family Medicine 01/22/23 Aby Lopez, [facility] [address] [place] [address] Pharmacist Pharmacy 12/25/18 Williams Rubin MD [address] [place] [address] PCP Resident Family Medicine 01/22/23 Lead Simulation Modeling Engineer Relationship Specialty Start Date End Date Homar Vasques MD [address] [place], [place] [id number] PCP - General Family Medicine 01/22/23 [facility] [address] [place] [address] Pharmacist Pharmacy 12/25/18 Williams Rubin MD [address] [place] [address] PCP Resident Family Medicine 01/22/23 Jeanie Murphy, cake batter mixerFlux Tube Attendant 04/05/23 Lead Simulation Modeling Engineer Relationship Specialty Start Date End Date Homar Vasques MD [address] [place] [address] PCP - [facility] Family Medicine 01/22/23 Aby Lopez, [facility] [address] [place] [address] Pharmacist Pharmacy 12/25/18 Williams Rubin MD [address] [place] [address] PCP Resident Family Medicine 01/22/23 Jeanie Murphy, cake batter mixerFlux Tube Attendant 04/05/23 Lead Simulation Modeling Engineer Relationship Specialty Start Date End Date Homar Vasques MD [address] [place], [place] [id number] PCP - General Family Medicine 01/22/23 Williams Rubin MD [address] [place] [address] [place], [place] [id number] PCP Resident Family Medicine 01/22/23 Jeanie Murphy cake batter mixerFlux Tube Attendant 04/05/23 Lead Simulation Modeling Engineer Relationship Specialty Start Date End Date Homar Vasques MD [address] [place], [place] [phone] PCP - General Family Medicine 01/22/23 Williams Rubin MD [address] [place] [address] [place], [place] [address] PCP Resident Family Medicine 01/22/23 Jeanie Murphy cake batter mixerFlux Tube Attendant 04/05/23 Lead Simulation Modeling Engineer Relationship Specialty Start Date End Date Homar Vasques MD [address] [place], [place] [id number] PCP - General Family Medicine 01/22/23 Williams Rubin MD [address] [place] [address] [place], [place] [id number] PCP Resident Family Medicine 01/22/23 Jeanie Murphy, cake batter mixerFlux Tube Attendant 04/05/23 Lead Simulation Modeling Engineer Relationship Specialty Start Date End Date Homar Vasques MD [address] [place], [place] [phone] PCP - General Family Medicine 01/22/23 Williams Rubin MD [address] [place] [address] [place], [place] [phone] PCP Resident Family Medicine 01/22/23 Jeanie Murphy, cake batter mixerFlux Tube Attendant 04/05/23 Lead Simulation Modeling Engineer Relationship Specialty Start Date End Date Homar Vasques MD [address] [place] [address] [place], [place] [id number] PCP - General Family Medicine 01/22/23 Du BoisAby, [facility] [address] [place] [address] Pharmacist Pharmacy 12/25/18 04/16/23 Williams Rubin MD [address] [place] [address] PCP Resident Family Medicine 01/22/23 Jeanie Murphy, cake batter mixerFlux Tube Attendant 04/05/23 Lead Simulation Modeling Engineer Relationship Specialty Start Date End Date Homar Vasques MD [address] [place] [address] PCP - General Family Medicine 01/22/23 Williams Rubin MD [address] [place] [address] PCP Resident Family Medicine 01/22/23 Jeanie Murphy, cake batter mixerFlux Tube Attendant 04/05/23 Lead Simulation Modeling Engineer Relationship Specialty Start Date End Date Homar Vasques MD [address] [address] [place], [place] [id number] PCP - General Family Medicine 01/22/23 Williams Rubin MD [address] [place] [address] PCP Resident Family Medicine 01/22/23 Jeanie Murphy cake batter mixerFlux Tube Attendant 04/05/23 Lead Simulation Modeling Engineer Relationship Specialty Start Date End Date Homar Vasques MD [address] [place], [place] [id number] PCP - General Family Medicine 01/22/23 Williams Rubin MD [address] [place] [address] [place], [place] [id number] PCP Resident Family Medicine 01/22/23 Jeanie Murphy cake batter mixerFlux Tube Attendant 04/05/23 Lead Simulation Modeling Engineer Relationship Specialty Start Date End Date Homar Vasques MD [address] [place] [address] PCP - General Family Medicine 01/22/23 Williams Rubin MD [address] [place] [address] PCP Resident Family Medicine 01/22/23 Jeanie Murphy cake batter mixerFlux Tube Attendant 04/05/23 Lead Simulation Modeling Engineer Relationship Specialty Start Date End Date Homar Vasques MD [address] [place] [address] PCP - General Family Medicine 01/22/23 Williams Rubin MD [address] [place] [address] [place], [place] [phone] PCP Resident Family Medicine 01/22/23 Jeanie Murphy cake batter mixerFlux Tube Attendant 04/05/23 Lead Simulation Modeling Engineer Relationship Specialty Start Date End Date No, Physician [facility] PCP - General 08/07/19 Lead Simulation Modeling Engineer Relationship Specialty Start Date End Date Homar Vasques MD [address] [place], [place] [phone] PCP - General Family Medicine 01/22/23 Williams Rubin MD [address] [place] [address] [place], [place] [phone] PCP Resident Family Medicine 01/22/23 Jeanie Murphy, cake batter mixerFlux Tube Attendant 04/05/23 Lead Simulation Modeling Engineer Relationship Specialty Start Date End Date Homar Vasques MD [address] [place], [place] [phone] PCP - General Family Medicine 01/22/23 Williams Rubin MD [address] [place] [address] [place], [place] [address] PCP Resident Family Medicine 01/22/23 Jeanie Murphy, cake batter mixerFlux Tube Attendant 04/05/23 Team Status: Active Member Role Status Dates Dr. Thomas Hull MD Family Provider Active No Primary Care Physician Primary Care Provider Active Team Status: Inactive Member Role Status Dates Dr. Jose R Phillips MD Emergency Provider Active No Primary Care Physician Primary Care Provider Active Lead Simulation Modeling Engineer Relationship Specialty Start Date End Date Homar Vasques MD [address] [place], [place] [id number] PCP - General Family Medicine 01/22/23 Williams Rubin MD [address] [place] [address] [place], [place] [address] PCP Resident Family Medicine 01/22/23 Jeanie Murphy, cake batter mixerFlux Tube Attendant 04/05/23 Lead Simulation Modeling Engineer Relationship Specialty Start Date End Date Homar Vasques MD [address] [place], [place] [phone] PCP - General Family Medicine 01/22/23 Williams Rubin MD [address] [place] [address] PCP Resident Family Medicine 01/22/23 Jeanie Murphy cake batter mixerFlux Tube Attendant 04/05/23 Lead Simulation Modeling Engineer Relationship Specialty Start Date End Date Homar Vasques MD [address] [place], [place] [id number] PCP - General Family Medicine 01/22/23 Williams Rubin MD [address] [place], [place] [address] PCP Resident Family Medicine 01/22/23 Jeanie Murphy cake batter mixerFlux Tube Attendant 04/05/23 Lead Simulation Modeling Engineer Relationship Specialty Start Date End Date Homar Vasques MD [address] [place], [place] [phone] PCP - General Family Medicine 01/22/23 Williams Rubin MD [address] [place] [address] PCP Resident Family Medicine 01/22/23 Jeanie Murphy cake batter mixerFlux Tube Attendant 04/05/23 Lead Simulation Modeling Engineer Relationship Specialty Start Date End Date Homar Vasques MD [address] [place], [place] [phone] PCP - General Family Medicine 01/22/23 Williams Rubin MD [address] [place], [place] [address] PCP Resident Family Medicine 01/22/23 Jeanie Murphy, cake batter mixerFlux Tube Attendant 04/05/23 Lead Simulation Modeling Engineer Relationship Specialty Start Date End Date Homar Vasques MD [address] [place], [place] [phone] PCP - General Family Medicine 01/22/23 Williams Rubin MD [address] [place] [address] [place], [place] [phone] PCP Resident Family Medicine 01/22/23 Jeanie Murphy, cake batter mixerFlux Tube Attendant 04/05/23 Sonia Cr, [facility] [address] [phone] Pharmacy 12/05/23 Lead Simulation Modeling Engineer Relationship Specialty Start Date End Date Homar Vasques MD [address] [place], [place] [phone] PCP - General Family Medicine 01/22/23 Williams Rubin MD [address] [place] [address] [place], [place] [address] PCP Resident Family Medicine 01/22/23 Jeanie Murphy cake batter mixerFlux Tube Attendant 04/05/23 Sonia Cr, [facility] [address] [address] Pharmacy 12/05/23 Lead Simulation Modeling Engineer Relationship Specialty Start Date End Date Homar Vasques MD [address] [place], [place] [phone] PCP - General Family Medicine 01/22/23 Williams Rubin MD [address] [place] [address] [place], [place] [address] PCP Resident Family Medicine 01/22/23 Jeanie Murphy, cake batter mixerFlux Tube Attendant 04/05/23 Sonia Cr [facility] [address] [id number] Pharmacy 12/05/23 Lead Simulation Modeling Engineer Relationship Specialty Start Date End Date Homar Vasques MD [address] [place], [place] [phone] PCP - General Family Medicine 01/22/23 Williams Rubin MD [address] [place] [address] [place], [place] [address] PCP Resident Family Medicine 01/22/23 Jeanie Murphy cake batter mixerFlux Tube Attendant 04/05/23 Snoia Cr [facility] [address] [address] Pharmacy 12/05/23 Lead Simulation Modeling Engineer Relationship Specialty Start Date End Date Homar Vasques MD [address] [place], [place] [phone] PCP - General Family Medicine 01/22/23 Williams Rubin MD [address] [place] [address] [place], [place] [address] PCP Resident Family Medicine 01/22/23 Jeanie Murphy cake batter mixerFlux Tube Attendant 04/05/23 Sonia Cr [facility] [address] [phone] Pharmacist Pharmacy 12/05/23 Lead Simulation Modeling Engineer Relationship Specialty Start Date End Date Homar Vasques MD [address] [place], [place] [phone] PCP - General Family Medicine 01/22/23 Williams Rubin MD [address] [place] [address] [place], [place] [address] PCP Resident Family Medicine 01/22/23 Jeanie Murphy cake batter mixerFlux Tube Attendant 04/05/23 Sonia Cr, [facility] [address] [address] Pharmacist Pharmacy 12/05/23 Lead Simulation Modeling Engineer Relationship Specialty Start Date End Date Homar Vasques MD [address] [place], [place] [phone] PCP - General Family Medicine 01/22/23 Williams Rubin MD [address] [place] [address] [place], [place] [phone] PCP Resident Family Medicine 01/22/23 Jeanie Murphy RN Flux Tube Attendant 04/05/23 Sonia Cr, [facility] [address] [phone] Pharmacist Pharmacy 12/05/23 Lead Simulation Modeling Engineer Relationship Specialty Start Date End Date Homar Vasques MD [address] [place], [place] [phone] PCP - General Family Medicine 01/22/23 Williams Rubin MD [address] [place] [address] [place], [place] [phone] PCP Resident Family Medicine 01/22/23 Jeanie Murphy RN Flux Tube Attendant 04/05/23 Sonia Cr, [facility] [address] [id number] Pharmacist Pharmacy 12/05/23 Lead Simulation Modeling Engineer Relationship Specialty Start Date End Date Homar Vasques MD [address] [place], [place] [phone] PCP - General Family Medicine 01/22/23 Williams Rubin MD [address] [place] [address] [place], [place] [phone] PCP Resident Family Medicine 01/22/23 Jeanie Murphy RN Flux Tube Attendant 04/05/23 [facility] [address] [phone] Pharmacist Pharmacy 12/05/23 Lead Simulation Modeling Engineer Relationship Specialty Start Date End Date Homar Vasques MD [address] [place], [place] [phone] PCP - General Family Medicine 01/22/23 Williams Rubin MD [address] [place] [address] [place], [place] [phone] PCP Resident Family Medicine 01/22/23 Jeanie Murphy RN Flux Tube Attendant 04/05/23 [facility] [address] [address] Pharmacist Pharmacy 12/05/23 Lead Simulation Modeling Engineer Relationship Specialty Start Date End Date Homar Vasques MD [address] [place], [place] [phone] PCP - General Family Medicine 01/22/23 Williams Rubin MD [address] [place] [address] PCP Resident Family Medicine 01/22/23 Jeanie Murphy RN Flux Tube Attendant 04/05/23 [facility] [address] [id number] Pharmacist Pharmacy 12/05/23 Lead Simulation Modeling Engineer Relationship Specialty Start Date End Date Homar Vasques MD [address] [place], [place] [phone] PCP - General Family Medicine 01/22/23 Williams Rubin MD [address] [place] [address] [place], [place] [phone] PCP Resident Family Medicine 01/22/23 Jeanie Murphy RN Flux Tube Attendant 04/05/23 [facility] [address] [phone] Pharmacist Pharmacy 12/05/23 Lead Simulation Modeling Engineer Relationship Specialty Start Date End Date Homar Vasques MD [address] [place], [place] [phone] PCP - General Family Medicine 01/22/23 Williams Rubin MD [address] [place] [address] [place], [place] [phone] PCP Resident Family Medicine 01/22/23 Jeanie Murphy RN Flux Tube Attendant 04/05/23 [facility] [address] [phone] Pharmacist Pharmacy 12/05/23 Lead Simulation Modeling Engineer Relationship Specialty Start Date End Date Homar Vasques MD [address] [place], [place] [phone] PCP - General Family Medicine 01/22/23 Williams Rubin MD [address] [place], [place] [phone] PCP Resident Family Medicine 01/22/23 Jeanie Murphy RN Flux Tube Attendant 04/05/23 [facility] [address] [phone] Pharmacist Pharmacy 12/05/23 Lead Simulation Modeling Engineer Relationship Specialty Start Date End Date Homar Vasques MD [address] [place], [place] [phone] PCP - General Family Medicine 01/22/23 Williams Rubin MD [address] [place] [address] [place], [place] [phone] PCP Resident Family Medicine 01/22/23 Jeanie Murphy RN Flux Tube Attendant 04/05/23 [facility] [address] [phone] Pharmacist Pharmacy 12/05/23 Lead Simulation Modeling Engineer Relationship Specialty Start Date End Date Homar Vasques MD [address] [place], [place] [phone] PCP - General Family Medicine 01/22/23 Williams Rubin MD [address] [place] [address] [place], [place] [phone] PCP Resident Family Medicine 01/22/23 Jeanie Murphy RN Flux Tube Attendant 04/05/23 [facility] [address] [phone] Pharmacist Pharmacy 12/05/23 Lead Simulation Modeling Engineer Relationship Specialty Start Date End Date Jeanie Murphy, RN Flux Tube Attendant 04/05/23 [facility] [address] [phone] Pharmacist Pharmacy 12/05/23 Team Status: Active Member Role Status Dates Dr. Lisseth Peñaloza MD Primary Care Provider Active Team Status: Inactive Member Role Status Dates No Primary Care Physician Referring Provider Active Start: August 05, 2024 End: August 05, 2024 Dr. Lisseth Peñaloza MD Primary Care Provider Active Start: August 05, 2024 End: August 05, 2024 Dr. Lisseth Peñaloza MD Attending Provider Active Start: August 05, 2024 End: August 05, 2024 Team Status: Inactive Member Role Status Dates Dr. Lisseth Peñaloza MD Primary Care Provider Active Start: August 26, 2024 End: August 26, 2024 Dr. Lisseth Peñaloza MD Attending Provider Active Start: August 26, 2024 End: August 26, 2024 Dr. Lisseth Peñaloza MD Referring Provider Active Start: August 26, 2024 End: August 26, 2024 Team Status: Inactive Member Role Status Dates Dr. Lisseth Peñaloza MD Primary Care Provider Active Start: September 07, 2024 End: September 07, 2024 Dr. Lisseth Peñaloza MD Attending Provider Active Start: September 07, 2024 End: September 07, 2024 Dr. Lisseth Peñaloza MD Referring Provider Active Start: September 07, 2024 End: September 07, 2024 Team Status: Inactive Member Role Status Dates Dr. Lisseth Peñaloza MD Primary Care Provider Active Start: October 15, 2024 End: October 15, 2024 Dr. Lisseth Peñaloza MD Referring Provider Active Start: October 15, 2024 End: October 15, 2024 OVIDIO Corbin Attending Provider Active Start: October 15, 2024 End: October 15, 2024 Team Status: Inactive Member Role Status Dates Dr. Lisseth Peñaloza MD Primary Care Provider Active Start: October 19, 2024 End: October 19, 2024 Dr. Lisseth Peñaloza MD Attending Provider Active Start: October 19, 2024 End: October 19, 2024 Dr. Lisseth Peñaloza MD Referring Provider Active Start: October 19, 2024 End: October 19, 2024 Team Status: Inactive Member Role Status Dates No Primary Care Physician Referring Provider Active Start: November 04, 2024 End: November 04, 2024 Shawanda Keane PA, PA Attending Provider Active Start: November 04, 2024 End: November 04, 2024 Dr. Lisseth Peñaloza MD Primary Care Provider Active Start: November 04, 2024 End: November 04, 2024 Team Status: Inactive Member Role Status Dates Dr. Lisseth Peñaloza MD Primary Care Provider Active Start: November 07, 2024 End: November 07, 2024 Dr. Jeremiah Henley MD Attending Provider Active Sta rt: November 07, 2024 End: November 07, 2024 Dr. Jeremiah Henley MD Referring Provider Active Sta rt: November 07, 2024 End: November 07, 2024 Dr. Jeremiah Henley MD Emergency Provider Active Sta rt: November 07, 2024 End: November 07, 2024 Team Status: Inactive Member Role Status Dates Dr. Lisseth Peñaloza MD Primary Care Provider Active Start: November 09, 2024 End: November 09, 2024 Dr. Jean Trujillo MD Attending Provider Active S tart: November 09, 2024 End: November 09, 2024 Team Status: Inactive Member Role Status Dates Dr. Lisseth Peñaloza MD Primary Care Provider Active Start: November 09, 2024 End: November 09, 2024 Dr. Lisseth Peñaloza MD Referring Provider Active Start: November 09, 2024 End: November 09, 2024 Dr. Jean Trujillo MD Attending Provider Active S tart: November 09, 2024 End: November 09, 2024 Team Status: Active Member Role Status Dates Dr. Lisseth Peñaloza MD Primary Care Provider Active Start: November 20, 2024 Dr. Javy Saul DO Emergency Provider Active Start: November 20, 2024 Dr. Mariah Brewer MD Admit Provider Active Star t: November 20, 2024 Dr. Mariah Brewer MD Attending Provider Active Start: November 20, 2024 Team Status: Inactive Member Role Status Dates Dr. Lisseth Peñaloza MD Primary Care Provider Active Start: November 20, 2024 End: November 26, 2024 Dr. Javy Saul , Emergency Provider Active Start: November 20, 2024 End: November 26, 2024 Dr. Mariah Brewer MD Admit Provider Active Star t: November 20, 2024 End: November 26, 2024 Dr. Mariah Brewer MD Other Provider Active Star t: November 20, 2024 End: November 26, 2024 Dr. Karthik Tang MD Other Provider Active Start: November 20, 2024 End: November 26, 2024 Dr. Clifton Alexander MD Other Provider Active Start: November 20, 2024 End: November 26, 2024 Dr. Clifford Cody MD Other Provider Active Star t: November 20, 2024 End: November 26, 2024 Dr. Deon Nicole , Other Provider Active Start : November 20, 2024 End: November 26, 2024 Dr. Jeanie Hunt MD Other Provider Active Sta rt: November 20, 2024 End: November 26, 2024 Dr. Rajan De La Cruz MD Other Provider Active St art: November 20, 2024 End: November 26, 2024 Dr. Scout Curry MD Other Provider Active S tart: November 20, 2024 End: November 26, 2024 Dr. Glenys Mcmahan MD Other Provider Active Start: November 20, 2024 End: November 26, 2024 Dr. Pedro Luis Lal MD Other Provider Active Start : November 20, 2024 End: November 26, 2024 Dr. Jamar Chi MD Other Provider Active Start: November 20, 2024 End: November 26, 2024 Dr. Jesus Varela MD Other Provider Active Start : November 20, 2024 End: November 26, 2024 Dr. Lara Durant MD Other Provider Active Star t: November 20, 2024 End: November 26, 2024 Dr. Sigrid Adkins MD Other Provider Active Sta rt: November 20, 2024 End: November 26, 2024 Dr. Camila Mclean MD Other Provider Active Sta rt: November 20, 2024 End: November 26, 2024 Dr. Guilherme Lopez MD Other Provider Active Star t: November 20, 2024 End: November 26, 2024 Dr. Dada Tidwell MD Other Provider Active St art: November 20, 2024 End: November 26, 2024 Dr. Mario Keller MD Other Provider Active Star t: November 20, 2024 End: November 26, 2024 Dr. Flash Newton , DO Other Provider Active St art: November 20, 2024 End: November 26, 2024 Dr. Lida Falcon MD Other Provider Active Start: November 20, 2024 End: November 26, 2024 Dr. Jhony Zhang MD Other Provider Active St art: November 20, 2024 End: November 26, 2024 Dr. Varun Collier , Other Provider Active Start: November 20, 2024 End: November 26, 2024 Dr. Yusuf Field MD Other Provider Active Star t: November 20, 2024 End: November 26, 2024 Dr. Thomas Paulino MD Other Provider Active Sta rt: November 20, 2024 End: November 26, 2024 Dr. Jean Trujillo MD Other Provider Active Start : November 20, 2024 End: November 26, 2024 Dr. Michel Haq MD Other Provider Active Start: November 20, 2024 End: November 26, 2024 Dr. Denisse Guan MD Attending Provider Active Start: November 20, 2024 End: November 26, 2024 Dr. Haider Smith , Other Provider Active Star t: November 20, 2024 End: November 26, 2024 Team Status: Active Member Role Status Dates Dr. Lisseth Peñaloza MD Primary Care Provider Active Start: November 21, 2024 Dr. Javy Saul , Emergency Provider Active Start: November 21, 2024 Dr. Mariah Brewer MD Admit Provider Active Star t: November 21, 2024 Dr. Mariah Brewer MD Other Provider Active Star t: November 21, 2024 Dr. Karthik Tang MD Other Provider Active Start: November 21, 2024 Dr. Clifton Alexander MD Other Provider Active Start: November 21, 2024 Dr. Clifford Cody MD Other Provider Active Star t: November 21, 2024 Dr. Deon Nicole , Other Provider Active Start : November 21, 2024 Dr. Jeanie Hunt MD Other Provider Active Sta rt: November 21, 2024 Dr. Rajan De La Cruz MD Other Provider Active St art: November 21, 2024 Dr. Scout Curry MD Other Provider Active S tart: November 21, 2024 Dr. Glenys Mcmahan MD Other Provider Active Start: November 21, 2024 Dr. Pedro Luis Lal MD Other Provider Active Start : November 21, 2024 Dr. Jamar Chi MD Other Provider Active Start: November 21, 2024 Dr. Jesus Varela MD Other Provider Active Start : November 21, 2024 Dr. Lara Durant MD Other Provider Active Star t: November 21, 2024 Dr. Sigrid Adkins MD Other Provider Active Sta rt: November 21, 2024 Dr. Camila Mclean MD Other Provider Active Sta rt: November 21, 2024 Dr. Guilherme Lopez MD Other Provider Active Star t: November 21, 2024 Dr. Dada Tidwell MD Other Provider Active St art: November 21, 2024 Dr. Mario Keller MD Other Provider Active Star t: November 21, 2024 Dr. Flash Newton DO Other Provider Active St art: November 21, 2024 Dr. Lida Falcon MD Other Provider Active Start: November 21, 2024 Dr. Jhony Zhang MD Other Provider Active St art: November 21, 2024 Dr. Varun Collier DO Other Provider Active Start: November 21, 2024 Dr. Yusuf Field MD Other Provider Active Star t: November 21, 2024 Dr. Thomas Paulino MD Other Provider Active Sta rt: November 21, 2024 Dr. Haider Smith DO Attending Provider Active Start: November 21, 2024 Dr. Haider Smith DO Other Provider Active Star t: November 21, 2024 Team Status: Active Member Role Status Dates Dr. Lisseth Peñaloza MD Primary Care Provider Active Start: November 21, 2024 Dr. Radha Dumont MD Attending Provider Active Start: November 21, 2024 Team Status: Active Member Role Status Dates Dr. Lisseth Peñaloza MD Primary Care Provider Active Start: November 22, 2024 Dr. Javy Saul , DO Emergency Provider Active Start: November 22, 2024 Dr. Mariah Brewer MD Admit Provider Active Star t: November 22, 2024 Dr. Mariah Brewer MD Other Provider Active Star t: November 22, 2024 Dr. Haider Smith , Attending Provider Active Start: November 22, 2024 Dr. Haider Smith , DO Other Provider Active Star t: November 22, 2024 Dr. Karthik Tang MD Other Provider Active Start: November 22, 2024 Dr. Clitfon Alexander MD Other Provider Active Start: November 22, 2024 Dr. Clifford Cody MD Other Provider Active Star t: November 22, 2024 Dr. Deon Nicole , DO Other Provider Active Start : November 22, 2024 Dr. Jeanie Hunt MD Other Provider Active Sta rt: November 22, 2024 Dr. Rajan De La Cruz MD Other Provider Active St art: November 22, 2024 Dr. Scout Curry MD Other Provider Active S tart: November 22, 2024 Dr. Glenys Mcmahan MD Other Provider Active Start: November 22, 2024 Dr. Pedro Luis Lal MD Other Provider Active Start : November 22, 2024 Dr. Jamar Chi MD Other Provider Active Start: November 22, 2024 Dr. Jesus Varela MD Other Provider Active Start : November 22, 2024 Dr. Lara Durant MD Other Provider Active Star t: November 22, 2024 Dr. Sigrid Adkins MD Other Provider Active Sta rt: November 22, 2024 Dr. Camila Mclean MD Other Provider Active Sta rt: November 22, 2024 Dr. Guilherme Lopez MD Other Provider Active Star t: November 22, 2024 Dr. Dada Tidwell MD Other Provider Active St art: November 22, 2024 Dr. Mario Keller MD Other Provider Active Star t: November 22, 2024 Dr. Flash Newton , DO Other Provider Active St art: November 22, 2024 Dr. Lida Falcon MD Other Provider Active Start: November 22, 2024 Dr. Jhony Zhang MD Other Provider Active St art: November 22, 2024 Dr. Varun Collier , Other Provider Active Start: November 22, 2024 Dr. Yusuf Field MD Other Provider Active Star t: November 22, 2024 Dr. Thomas Pualino MD Other Provider Active Sta rt: November 22, 2024 Dr. Jean Trujillo MD Other Provider Active Start : November 22, 2024 Team Status: Active Member Role Status Dates Dr. Lisseth Peñaloza MD Primary Care Provider Active Start: November 22, 2024 Dr. Javy Saul , Emergency Provider Active Start: November 22, 2024 Dr. Mariah Brewer MD Admit Provider Active Star t: November 22, 2024 Dr. Mariah Brewer MD Other Provider Active Star t: November 22, 2024 Dr. Haider Smith , Other Provider Active Star t: November 22, 2024 Dr. Karthik Tang MD Other Provider Active Start: November 22, 2024 Dr. Clifton Alexander MD Other Provider Active Start: November 22, 2024 Dr. Clifford Cody MD Other Provider Active Star t: November 22, 2024 Dr. Deon Nicole , Other Provider Active Start : November 22, 2024 Dr. Jeanie Hunt MD Other Provider Active Sta rt: November 22, 2024 Dr. Rajan De La Cruz MD Other Provider Active St art: November 22, 2024 Dr. Scout Curry MD Other Provider Active S tart: November 22, 2024 Dr. Glenys Mcmahan MD Other Provider Active Start: November 22, 2024 Dr. Pedro Luis Lal MD Other Provider Active Start : November 22, 2024 Dr. Jamar Chi MD Other Provider Active Start: November 22, 2024 Dr. Jesus Varela MD Other Provider Active Start : November 22, 2024 Dr. Lara Durant MD Other Provider Active Star t: November 22, 2024 Dr. Sigrid Adkins MD Other Provider Active Sta rt: November 22, 2024 Dr. Camila Mclean MD Other Provider Active Sta rt: November 22, 2024 Dr. Guilherme Lopez MD Other Provider Active Star t: November 22, 2024 Dr. Dada Tidwell MD Other Provider Active St art: November 22, 2024 Dr. Mario Keller MD Other Provider Active Star t: November 22, 2024 Dr. Flash Newton , DO Other Provider Active St art: November 22, 2024 Dr. iLda Falcon MD Other Provider Active Start: November 22, 2024 Dr. Jhony Zhang MD Other Provider Active St art: November 22, 2024 Dr. Varun Collier , DO Other Provider Active Start: November 22, 2024 Dr. Yusuf Field MD Other Provider Active Star t: November 22, 2024 Dr. Thomas Paulino MD Other Provider Active Sta rt: November 22, 2024 Dr. Jean Trujillo MD Other Provider Active Start : November 22, 2024 Dr. Radha Dumont MD Attending Provider Active Start: November 22, 2024 Team Status: Active Member Role Status Dates Dr. Lisseth Peñaloza MD Primary Care Provider Active Start: November 23, 2024 Dr. Javy Saul , Emergency Provider Active Start: November 23, 2024 Dr. Mariah Brewer MD Admit Provider Active Star t: November 23, 2024 Dr. Mariah Brewer MD Other Provider Active Star t: November 23, 2024 Dr. Haider Smith DO Attending Provider Active Start: November 23, 2024 Dr. Haider Smith , DO Other Provider Active Star t: November 23, 2024 Dr. Karthik Tang MD Other Provider Active Start: November 23, 2024 Dr. Clifton Alexander MD Other Provider Active Start: November 23, 2024 Dr. Clifford Cody MD Other Provider Active Star t: November 23, 2024 Dr. Deon Nicole , Other Provider Active Start : November 23, 2024 Dr. Jeanie Hunt MD Other Provider Active Sta rt: November 23, 2024 Dr. Rajan De La Cruz MD Other Provider Active St art: November 23, 2024 Dr. Scout Curry MD Other Provider Active S tart: November 23, 2024 Dr. Glenys Mcmahan MD Other Provider Active Start: November 23, 2024 Dr. Pedro Luis Lal MD Other Provider Active Start : November 23, 2024 Dr. Jamar Chi MD Other Provider Active Start: November 23, 2024 Dr. Jesus Varela MD Other Provider Active Start : November 23, 2024 Dr. Lara Durant MD Other Provider Active Star t: November 23, 2024 Dr. Sigrid Adkins MD Other Provider Active Sta rt: November 23, 2024 Dr. Camila Mclean MD Other Provider Active Sta rt: November 23, 2024 Dr. Guilherme Lopez MD Other Provider Active Star t: November 23, 2024 Dr. Dada Tidwell MD Other Provider Active St art: November 23, 2024 Dr. Mario Keller MD Other Provider Active Star t: November 23, 2024 Dr. Flash Newton , DO Other Provider Active St art: November 23, 2024 Dr. Lida Falcon MD Other Provider Active Start: November 23, 2024 Dr. Jhony Zhang MD Other Provider Active St art: November 23, 2024 Dr. Varun Collier , DO Other Provider Active Start: November 23, 2024 Dr. Yusuf Field MD Other Provider Active Star t: November 23, 2024 Dr. Thomas Paulino MD Other Provider Active Sta rt: November 23, 2024 Dr. Jean Trujillo MD Other Provider Active Start : November 23, 2024 Dr. Michel Haq MD Other Provider Active Start: November 23, 2024 Team Status: Active Member Role Status Dates Dr. Lisseth Peñaloza MD Primary Care Provider Active Start: November 23, 2024 Dr. Javy Saul , Emergency Provider Active Start: November 23, 2024 Dr. Mariah Brewer MD Admit Provider Active Star t: November 23, 2024 Dr. Mariah Brewer MD Other Provider Active Star t: November 23, 2024 Dr. Haider Smith , DO Other Provider Active Star t: November 23, 2024 Dr. Karthik Tang MD Other Provider Active Start: November 23, 2024 Dr. Clifton Alexander MD Other Provider Active Start: November 23, 2024 Dr. Clifford Cody MD Other Provider Active Star t: November 23, 2024 Dr. Deon Nicole , Other Provider Active Start : November 23, 2024 Dr. Jeanie Hunt MD Other Provider Active Sta rt: November 23, 2024 Dr. Rajan De La Cruz MD Other Provider Active St art: November 23, 2024 Dr. Scout Curyr MD Other Provider Active S tart: November 23, 2024 Dr. Glenys Mcmahan MD Other Provider Active Start: November 23, 2024 Dr. Pedro Luis Lal MD Other Provider Active Start : November 23, 2024 Dr. Jamar Chi MD Other Provider Active Start: November 23, 2024 Dr. Jesus Varela MD Other Provider Active Start : November 23, 2024 Dr. Lara Durant MD Other Provider Active Star t: November 23, 2024 Dr. Sigrid Adkins MD Other Provider Active Sta rt: November 23, 2024 Dr. Camila Mclean MD Other Provider Active Sta rt: November 23, 2024 Dr. Guilherme Lopez MD Other Provider Active Star t: November 23, 2024 Dr. Dada Tidwell MD Other Provider Active St art: November 23, 2024 Dr. Mario Keller MD Other Provider Active Star t: November 23, 2024 Dr. Flash Newton , Other Provider Active St art: November 23, 2024 Dr. Lida Falcon MD Other Provider Active Start: November 23, 2024 Dr. Jhony Zhang MD Other Provider Active St art: November 23, 2024 Dr. Varun Collier DO Other Provider Active Start: November 23, 2024 Dr. Yusuf Field MD Other Provider Active Star t: November 23, 2024 Dr. Thomas Paulino MD Other Provider Active Sta rt: November 23, 2024 Dr. Jean Trujillo MD Other Provider Active Start : November 23, 2024 Dr. Michel Haq MD Other Provider Active Start: November 23, 2024 Dr. Kasandra Hinkle MD Attending Provider Active Start: November 23, 2024 Team Status: Active Member Role Status Dates Dr. Lisseth Peñaloza MD Primary Care Provider Active Start: November 23, 2024 Dr. Jean Trujillo MD Attending Provider Active S tart: November 23, 2024 Team Status: Active Member Role Status Dates Dr. Lisseth Peñaloza MD Primary Care Provider Active Start: November 24, 2024 Dr. Javy Saul , DO Emergency Provider Active Start: November 24, 2024 Dr. Mariah Brewer MD Admit Provider Active Star t: November 24, 2024 Dr. Mariah Brewer MD Other Provider Active Star t: November 24, 2024 Dr. Haider Smith , DO Other Provider Active Star t: November 24, 2024 Dr. Karthik Tang MD Other Provider Active Start: November 24, 2024 Dr. Clifton Alexander MD Other Provider Active Start: November 24, 2024 Dr. Clifford Cody MD Other Provider Active Star t: November 24, 2024 Dr. Deon Nicole , DO Other Provider Active Start : November 24, 2024 Dr. Jeanie Hunt MD Other Provider Active Sta rt: November 24, 2024 Dr. Rajan De La Cruz MD Other Provider Active St art: November 24, 2024 Dr. Scout Curry MD Other Provider Active S tart: November 24, 2024 Dr. Glenys Mcmahan MD Other Provider Active Start: November 24, 2024 Dr. Pedro Luis Lal MD Other Provider Active Start : November 24, 2024 Dr. Jamar Chi MD Other Provider Active Start: November 24, 2024 Dr. Jesus Varela MD Other Provider Active Start : November 24, 2024 Dr. Lara Durant MD Other Provider Active Star t: November 24, 2024 Dr. Sigrid Adkins MD Other Provider Active Sta rt: November 24, 2024 Dr. Camila Mclean MD Other Provider Active Sta rt: November 24, 2024 Dr. Guilherme Lopez MD Other Provider Active Star t: November 24, 2024 Dr. Dada Tidwell MD Other Provider Active St art: November 24, 2024 Dr. Mario Keller MD Other Provider Active Star t: November 24, 2024 Dr. Flash Newton , Other Provider Active St art: November 24, 2024 Dr. Lida Falcon MD Other Provider Active Start: November 24, 2024 Dr. Jhony Zhang MD Other Provider Active St art: November 24, 2024 Dr. Varun Collier , Other Provider Active Start: November 24, 2024 Dr. Yusuf Field MD Other Provider Active Star t: November 24, 2024 Dr. Thomas Paulino MD Other Provider Active Sta rt: November 24, 2024 Dr. Jean Trujillo MD Other Provider Active Start : November 24, 2024 Dr. Michel Haq MD Other Provider Active Start: November 24, 2024 Dr. Kasandra Hinkle MD Attending Provider Active Start: November 24, 2024 Team Status: Active Member Role Status Dates Dr. Lisseth Peñaloza MD Primary Care Provider Active Start: November 24, 2024 Dr. Javy Saul , Emergency Provider Active Start: November 24, 2024 Dr. Mariah Brewer MD Admit Provider Active Star t: November 24, 2024 Dr. Mariah Brewer MD Other Provider Active Star t: November 24, 2024 Dr. Haider Smith DO Attending Provider Active Start: November 24, 2024 Dr. Haider Smith DO Other Provider Active Star t: November 24, 2024 Dr. Karthik Tang MD Other Provider Active Start: November 24, 2024 Dr. Clifton Alexander MD Other Provider Active Start: November 24, 2024 Dr. Clifford Cody MD Other Provider Active Star t: November 24, 2024 Dr. Deon Nicole , Other Provider Active Start : November 24, 2024 Dr. Jeanie Hunt MD Other Provider Active Sta rt: November 24, 2024 Dr. Rajan De La Cruz MD Other Provider Active St art: November 24, 2024 Dr. Scout Curry MD Other Provider Active S tart: November 24, 2024 Dr. Glenys Mcmahan MD Other Provider Active Start: November 24, 2024 Dr. Pedro Luis Lal MD Other Provider Active Start : November 24, 2024 Dr. Jamar Chi MD Other Provider Active Start: November 24, 2024 Dr. Jesus Varela MD Other Provider Active Start : November 24, 2024 Dr. Lara Durant MD Other Provider Active Star t: November 24, 2024 Dr. Sigrid Adkins MD Other Provider Active Sta rt: November 24, 2024 Dr. Camila Mclean MD Other Provider Active Sta rt: November 24, 2024 Dr. Guilherme Lopez MD Other Provider Active Star t: November 24, 2024 Dr. Dada Tidwell MD Other Provider Active St art: November 24, 2024 Dr. Mario Keller MD Other Provider Active Star t: November 24, 2024 Dr. Flash Newton , DO Other Provider Active St art: November 24, 2024 Dr. Lida Falcon MD Other Provider Active Start: November 24, 2024 Dr. Jhony Zhang MD Other Provider Active St art: November 24, 2024 Dr. Varun Collier , DO Other Provider Active Start: November 24, 2024 Dr. Yusuf Field MD Other Provider Active Star t: November 24, 2024 Dr. Thomas Paulino MD Other Provider Active Sta rt: November 24, 2024 Dr. Jean Trujillo MD Other Provider Active Start : November 24, 2024 Dr. Michel Haq MD Other Provider Active Start: November 24, 2024 Team Status: Active Member Role Status Dates Dr. Lisseth Peñaloza MD Primary Care Provider Active Start: November 25, 2024 Dr. Javy Saul , Emergency Provider Active Start: November 25, 2024 Dr. Mariah Brewer MD Admit Provider Active Star t: November 25, 2024 Dr. Mariah Brewer MD Other Provider Active Star t: November 25, 2024 Dr. Haider Smith DO Attending Provider Active Start: November 25, 2024 Dr. Haider Smith , DO Other Provider Active Star t: November 25, 2024 Dr. Karthik Tang MD Other Provider Active Start: November 25, 2024 Dr. Clifton Alexander MD Other Provider Active Start: November 25, 2024 Dr. Clifford Cody MD Other Provider Active Star t: November 25, 2024 Dr. Deon Nicole , Other Provider Active Start : November 25, 2024 Dr. Jeanie Hunt MD Other Provider Active Sta rt: November 25, 2024 Dr. Rajan De La Cruz MD Other Provider Active St art: November 25, 2024 Dr. Scout Curry MD Other Provider Active S tart: November 25, 2024 Dr. Glenys Mcmahan MD Other Provider Active Start: November 25, 2024 Dr. Pedro Luis Lal MD Other Provider Active Start : November 25, 2024 Dr. Jamar Chi MD Other Provider Active Start: November 25, 2024 Dr. Jesus Varela MD Other Provider Active Start : November 25, 2024 Dr. Lara Durant MD Other Provider Active Star t: November 25, 2024 Dr. Sigrid Adkins MD Other Provider Active Sta rt: November 25, 2024 Dr. Camila Mclean MD Other Provider Active Sta rt: November 25, 2024 Dr. Guilherme Lopez MD Other Provider Active Star t: November 25, 2024 Dr. Dada Tidwell MD Other Provider Active St art: November 25, 2024 Dr. Mario Keller MD Other Provider Active Star t: November 25, 2024 Dr. Flash Newton DO Other Provider Active St art: November 25, 2024 Dr. Lida Falcon MD Other Provider Active Start: November 25, 2024 Dr. Jhony Zhang MD Other Provider Active St art: November 25, 2024 Dr. Varun Collier DO Other Provider Active Start: November 25, 2024 Dr. Yusuf Field MD Other Provider Active Star t: November 25, 2024 Dr. Thomas Paulino MD Other Provider Active Sta rt: November 25, 2024 Dr. Jean Trujillo MD Other Provider Active Start : November 25, 2024 Dr. Michel Haq MD Other Provider Active Start: November 25, 2024 Team Status: Active Member Role Status Dates Dr. Lisseth Peñaloza MD Primary Care Provider Active Start: November 26, 2024 Dr. Javy Saul DO Emergency Provider Active Start: November 26, 2024 Dr. Mariah Brewer MD Admit Provider Active Star t: November 26, 2024 Dr. Mariah Brewer MD Other Provider Active Star t: November 26, 2024 Dr. Karthik Tang MD Other Provider Active Start: November 26, 2024 Dr. Clifton Alexander MD Other Provider Active Start: November 26, 2024 Dr. Clifford Cody MD Other Provider Active Star t: November 26, 2024 Dr. Deon Nicole , Other Provider Active Start : November 26, 2024 Dr. eJanie Hunt MD Other Provider Active Sta rt: November 26, 2024 Dr. Rajan De La Cruz MD Other Provider Active St art: November 26, 2024 Dr. Scout Curry MD Other Provider Active S tart: November 26, 2024 Dr. Glenys Mcmahan MD Other Provider Active Start: November 26, 2024 Dr. Pedro Luis Lal MD Other Provider Active Start : November 26, 2024 Dr. Jamar Chi MD Other Provider Active Start: November 26, 2024 Dr. Jesus Varela MD Other Provider Active Start : November 26, 2024 Dr. Lara Durant MD Other Provider Active Star t: November 26, 2024 Dr. Sigrid Adkins MD Other Provider Active Sta rt: November 26, 2024 Dr. Camila Mclean MD Other Provider Active Sta rt: November 26, 2024 Dr. Guilherme Lopez MD Other Provider Active Star t: November 26, 2024 Dr. Dada Tidwell MD Other Provider Active St art: November 26, 2024 Dr. Mario Keller MD Other Provider Active Star t: November 26, 2024 Dr. Flash Newton , Other Provider Active St art: November 26, 2024 Dr. Lida Falcon MD Other Provider Active Start: November 26, 2024 Dr. Jhony Zhang MD Other Provider Active St art: November 26, 2024 Dr. Varun Collier , Other Provider Active Start: November 26, 2024 Dr. Yusuf Field MD Other Provider Active Star t: November 26, 2024 Dr. Thomas Paulino MD Other Provider Active Sta rt: November 26, 2024 Dr. Jean Trujillo MD Other Provider Active Start : November 26, 2024 Dr. Michel Haq MD Other Provider Active Start: November 26, 2024 Dr. Denisse Guan MD Attending Provider Active Start: November 26, 2024 Dr. Denisse Guan MD Other Provider Active St art: November 26, 2024 Dr. Haider Smith DO Other Provider Active Star t: November 26, 2024 Team Status: Inactive Member Role Status Dates Dr. Lisseth Peñaloza MD Primary Care Provider Active Start: November 27, 2024 End: November 28, 2024 Dr. Haider Valdes DO Emergency Provider Active Start: November 27, 2024 End: November 28, 2024 Team Status: Active Member Role Status Dates Dr. Lisseth Peñaloza MD Primary Care Provider Active Start: December 01, 2024 Dr. Michel Haq MD Attending Provider Active Start: December 01, 2024 Team Status: Inactive Member Role Status Dates Dr. Lisseth Peñaloza MD Primary Care Provider Active Start: December 01, 2024 End: December 01, 2024 Dr. Michel Haq MD Attending Provider Active Start: December 01, 2024 End: December 01, 2024 Dr. Michel Haq MD Referring Provider Active Start: December 01, 2024 End: December 01, 2024 Team Status: Inactive Member Role Status Dates Dr. Lisseth Peñaloza MD Primary Care Provider Active Start: November 27, 2024 End: November 28, 2024 Dr. Haider Valdes DO Attending Provider Active Start: November 27, 2024 End: November 28, 2024 Dr. Haider Valdes DO Emergency Provider Active Start: November 27, 2024 End: November 28, 2024 Team Status: Inactive Member Role Status Dates Dr. Lisseth Peñaloza MD Primary Care Provider Active Start: December 01, 2024 End: December 01, 2024 Dr. Michel Haq MD Attending Provider Active Start: December 01, 2024 End: December 01, 2024 Team Status: Active Member Role Status Dates Dr. Lisseth Peñaloza MD Primary Care Provider Active Start: December 08, 2024 Dr. Michel Haq MD Attending Provider Active Start: December 08, 2024 Team Status: Inactive Member Role Status Dates Dr. Lisseth Peñaloza MD Primary Care Provider Active Start: December 09, 2024 End: December 09, 2024 Dr. Lisseth Peñaloza MD Referring Provider Active Start: December 09, 2024 End: December 09, 2024 STACY Cunha Attending Provider Active St art: December 09, 2024 End: December 09, 2024 Team Status: Inactive Member Role Status Dates Dr. Lisseth Peñaloza MD Primary Care Provider Active Start: December 10, 2024 End: December 10, 2024 Dr. Lisseth Peñaloza MD Referring Provider Active Start: December 10, 2024 End: December 10, 2024 OVIDIO Corbin Attending Provider Active Start: December 10, 2024 End: December 10, 2024 Team Status: Inactive Member Role Status Dates Dr. Lisseth Peñaloza MD Primary Care Provider Active Start: December 08, 2024 End: December 08, 2024 Dr. Michel Haq MD Attending Provider Active Start: December 08, 2024 End: December 08, 2024 Team Status: Inactive Member Role Status Dates Dr. Lisseth Peñaloza MD Primary Care Provider Active Start: December 15, 2024 End: December 15, 2024 Dr. Michel Haq MD Attending Provider Active Start: December 15, 2024 End: December 15, 2024 Goals (unrecognized section and content) Goals may be documented in a n alternate section Source Comments (unrecognize d section and content) In the event this informatio n is protected by the Federal Confidentiality of Alcohol and Drug Abuse Patient Records regulations: The Federal rules restrict any use of the information to criminally investigate or prosecute any alcohol or drug abuse patient.[facility] the event this information is protected by the Federal Confidentiality of Alcohol and Drug Abuse Patient Records regulations: The Federal rules restrict any use of the information to criminally investigate or prosecute any alcohol or drug abuse patient.[facility]In the event this information is protected by the Federal Confidentiality of Alcohol and Drug Abuse Patient Records regulations: The Federal rules restrict any use of the information to criminally investigate or prosecute any alcohol or drug abuse patient.[facility]In the event this information is protected by the Federal Confidentiality of Alcohol and Drug Abuse Patient Records regulations: The Federal rules restrict any use of the information to criminally investigate or prosecute any alcohol or drug abuse patient.[facility] CenterIn the event this information is protected by the Federal Confidentiality of Alcohol and Drug Abuse Patient Records regulations: The Federal rules restrict any use of the information to criminally investigate or prosecute any alcohol or drug abuse patient.[facility]In the event this information is protected by the Federal Confidentiality of Alcohol and Drug Abuse Patient Records regulations: The Federal rules restrict any use of the information to criminally investigate or prosecute any alcohol or drug abuse patient.[facility] CenterIn the event this information is protected by the Federal Confidentiality of Alcohol and Drug Abuse Patient Records regulations: The Federal rules restrict any use of the information to criminally investigate or prosecute any alcohol or drug abuse patient.[facility] CenterIn the event this information is protected by the Federal Confidentiality of Alcohol and Drug Abuse Patient Records regulations: The Federal rules restrict any use of the information to criminally investigate or prosecute any alcohol or drug abuse patient.[facility] CenterIn the event this information is protected by the Federal Confidentiality of Alcohol and Drug Abuse Patient Records regulations: The Federal rules restrict any use of the information to criminally investigate or prosecute any alcohol or drug abuse patient.[facility] CenterIn the event this information is protected by the Federal Confidentiality of Alcohol and Drug Abuse Patient Records regulations: The Federal rules restrict any use of the information to criminally investigate or prosecute any alcohol or drug abuse patient.[facility] CenterIn the event this information is protected by the Federal Confidentiality of Alcohol and Drug Abuse Patient Records regulations: The Federal rules restrict any use of the information to criminally investigate or prosecute any alcohol or drug abuse patient.[facility] CenterIn the event this information is protected by the Federal Confidentiality of Alcohol and Drug Abuse Patient Records regulations: The Federal rules restrict any use of the information to criminally investigate or prosecute any alcohol or drug abuse patient.[facility] CenterIn the event this information is protected by the Federal Confidentiality of Alcohol and Drug Abuse Patient Records regulations: The Federal rules restrict any use of the information to criminally investigate or prosecute any alcohol or drug abuse patient.[facility] CenterIn the event this information is protected by the Federal Confidentiality of Alcohol and Drug Abuse Patient Records regulations: The Federal rules restrict any use of the information to criminally investigate or prosecute any alcohol or drug abuse patient.[facility] CenterIn the event this information is protected by the Federal Confidentiality of Alcohol and Drug Abuse Patient Records regulations: The Federal rules restrict any use of the information to criminally investigate or prosecute any alcohol or drug abuse patient.[facility] CenterIn the event this information is protected by the Federal Confidentiality of Alcohol and Drug Abuse Patient Records regulations: The Federal rules restrict any use of the information to criminally investigate or prosecute any alcohol or drug abuse patient.[facility] CenterIn the event this information is protected by the Federal Confidentiality of Alcohol and Drug Abuse Patient Records regulations: The Federal rules restrict any use of the information to criminally investigate or prosecute any alcohol or drug abuse patient.[facility] CenterIn the event this information is protected by the Federal Confidentiality of Alcohol and Drug Abuse Patient Records regulations: The Federal rules restrict any use of the information to criminally investigate or prosecute any alcohol or drug abuse patient.[facility] CenterIn the event this information is protected by the Federal Confidentiality of Alcohol and Drug Abuse Patient Records regulations: The Federal rules restrict any use of the information to criminally investigate or prosecute any alcohol or drug abuse patient.[facility] CenterIn the event this information is protected by the Federal Confidentiality of Alcohol and Drug Abuse Patient Records regulations: The Federal rules restrict any use of the information to criminally investigate or prosecute any alcohol or drug abuse patient.[facility] CenterIn the event this information is protected by the Federal Confidentiality of Alcohol and Drug Abuse Patient Records regulations: The Federal rules restrict any use of the information to criminally investigate or prosecute any alcohol or drug abuse patient.[facility] CenterIn the event this information is protected by the Federal Confidentiality of Alcohol and Drug Abuse Patient Records regulations: The Federal rules restrict any use of the information to criminally investigate or prosecute any alcohol or drug abuse patient.[facility] CenterIn the event this information is protected by the Federal Confidentiality of Alcohol and Drug Abuse Patient Records regulations: The Federal rules restrict any use of the information to criminally investigate or prosecute any alcohol or drug abuse patient.[facility] CenterIn the event this information is protected by the Federal Confidentiality of Alcohol and Drug Abuse Patient Records regulations: The Federal rules restrict any use of the information to criminally investigate or prosecute any alcohol or drug abuse patient.[facility] CenterIn the event this information is protected by the Federal Confidentiality of Alcohol and Drug Abuse Patient Records regulations: The Federal rules restrict any use of the information to criminally investigate or prosecute any alcohol or drug abuse patient.[facility] CenterIn the event this information is protected by the Federal Confidentiality of Alcohol and Drug Abuse Patient Records regulations: The Federal rules restrict any use of the information to criminally investigate or prosecute any alcohol or drug abuse patient.[facility] CenterIn the event this information is protected by the Federal Confidentiality of Alcohol and Drug Abuse Patient Records regulations: The Federal rules restrict any use of the information to criminally investigate or prosecute any alcohol or drug abuse patient.[facility] CenterIn the event this information is protected by the Federal Confidentiality of Alcohol and Drug Abuse Patient Records regulations: The Federal rules restrict any use of the information to criminally investigate or prosecute any alcohol or drug abuse patient.[facility] CenterIn the event this information is protected by the Federal Confidentiality of Alcohol and Drug Abuse Patient Records regulations: The Federal rules restrict any use of the information to criminally investigate or prosecute any alcohol or drug abuse patient.[facility] CenterIn the event this information is protected by the Federal Confidentiality of Alcohol and Drug Abuse Patient Records regulations: The Federal rules restrict any use of the information to criminally investigate or prosecute any alcohol or drug abuse patient.[facility] CenterIn the event this information is protected by the Federal Confidentiality of Alcohol and Drug Abuse Patient Records regulations: The Federal rules restrict any use of the information to criminally investigate or prosecute any alcohol or drug abuse patient.[facility] CenterIn the event this information is protected by the Federal Confidentiality of Alcohol and Drug Abuse Patient Records regulations: The Federal rules restrict any use of the information to criminally investigate or prosecute any alcohol or drug abuse patient.[facility] CenterIn the event this information is protected by the Federal Confidentiality of Alcohol and Drug Abuse Patient Records regulations: The Federal rules restrict any use of the information to criminally investigate or prosecute any alcohol or drug abuse patient.[facility] CenterIn the event this information is protected by the Federal Confidentiality of Alcohol and Drug Abuse Patient Records regulations: The Federal rules restrict any use of the information to criminally investigate or prosecute any alcohol or drug abuse patient.[facility] CenterIn the event this information is protected by the Federal Confidentiality of Alcohol and Drug Abuse Patient Records regulations: The Federal rules restrict any use of the information to criminally investigate or prosecute any alcohol or drug abuse patient.[facility] CenterIn the event this information is protected by the Federal Confidentiality of Alcohol and Drug Abuse Patient Records regulations: The Federal rules restrict any use of the information to criminally investigate or prosecute any alcohol or drug abuse patient.[facility] CenterIn the event this information is protected by the Federal Confidentiality of Alcohol and Drug Abuse Patient Records regulations: The Federal rules restrict any use of the information to criminally investigate or prosecute any alcohol or drug abuse patient.[facility] CenterIn the event this information is protected by the Federal Confidentiality of Alcohol and Drug Abuse Patient Records regulations: The Federal rules restrict any use of the information to criminally investigate or prosecute any alcohol or drug abuse patient.[facility] CenterIn the event this information is protected by the Federal Confidentiality of Alcohol and Drug Abuse Patient Records regulations: The Federal rules restrict any use of the information to criminally investigate or prosecute any alcohol or drug abuse patient.[facility] CenterIn the event this information is protected by the Federal Confidentiality of Alcohol and Drug Abuse Patient Records regulations: The Federal rules restrict any use of the information to criminally investigate or prosecute any alcohol or drug abuse patient.[facility] CenterIn the event this information is protected by the Federal Confidentiality of Alcohol and Drug Abuse Patient Records regulations: The Federal rules restrict any use of the information to criminally investigate or prosecute any alcohol or drug abuse patient.[facility] CenterIn the event this information is protected by the Federal Confidentiality of Alcohol and Drug Abuse Patient Records regulations: The Federal rules restrict any use of the information to criminally investigate or prosecute any alcohol or drug abuse patient.[facility] CenterIn the event this information is protected by the Federal Confidentiality of Alcohol and Drug Abuse Patient Records regulations: The Federal rules restrict any use of the information to criminally investigate or prosecute any alcohol or drug abuse patient.[facility] CenterIn the event this information is protected by the Federal Confidentiality of Alcohol and Drug Abuse Patient Records regulations: The Federal rules restrict any use of the information to criminally investigate or prosecute any alcohol or drug abuse patient.[facility] CenterIn the event this information is protected by the Federal Confidentiality of Alcohol and Drug Abuse Patient Records regulations: The Federal rules restrict any use of the information to criminally investigate or prosecute any alcohol or drug abuse patient.[facility] CenterIn the event this information is protected by the Federal Confidentiality of Alcohol and Drug Abuse Patient Records regulations: The Federal rules restrict any use of the information to criminally investigate or prosecute any alcohol or drug abuse patient.[facility] CenterIn the event this information is protected by the Federal Confidentiality of Alcohol and Drug Abuse Patient Records regulations: The Federal rules restrict any use of the information to criminally investigate or prosecute any alcohol or drug abuse patient.[facility] CenterIn the event this information is protected by the Federal Confidentiality of Alcohol and Drug Abuse Patient Records regulations: The Federal rules restrict any use of the information to criminally investigate or prosecute any alcohol or drug abuse patient.[facility] CenterIn the event this information is protected by the Federal Confidentiality of Alcohol and Drug Abuse Patient Records regulations: The Federal rules restrict any use of the information to criminally investigate or prosecute any alcohol or drug abuse patient.[facility] CenterIn the event this information is protected by the Federal Confidentiality of Alcohol and Drug Abuse Patient Records regulations: The Federal rules restrict any use of the information to criminally investigate or prosecute any alcohol or drug abuse patient.[facility] CenterIn the event this information is protected by the Federal Confidentiality of Alcohol and Drug Abuse Patient Records regulations: The Federal rules restrict any use of the information to criminally investigate or prosecute any alcohol or drug abuse patient.[facility] CenterIn the event this information is protected by the Federal Confidentiality of Alcohol and Drug Abuse Patient Records regulations: The Federal rules restrict any use of the information to criminally investigate or prosecute any alcohol or drug abuse patient.[facility] CenterIn the event this information is protected by the Federal Confidentiality of Alcohol and Drug Abuse Patient Records regulations: The Federal rules restrict any use of the information to criminally investigate or prosecute any alcohol or drug abuse patient.[facility] CenterIn the event this information is protected by the Federal Confidentiality of Alcohol and Drug Abuse Patient Records regulations: The Federal rules restrict any use of the information to criminally investigate or prosecute any alcohol or drug abuse patient.[facility] CenterIn the event this information is protected by the Federal Confidentiality of Alcohol and Drug Abuse Patient Records regulations: The Federal rules restrict any use of the information to criminally investigate or prosecute any alcohol or drug abuse patient.[facility]In the event this information is protected by the Federal Confidentiality of Alcohol and Drug Abuse Patient Records regulations: The Federal rules restrict any use of the information to criminally investigate or prosecute any alcohol or drug abuse patient.[facility] CenterIn the event this information is protected by the Federal Confidentiality of Alcohol and Drug Abuse Patient Records regulations: The Federal rules restrict any use of the information to criminally investigate or prosecute any alcohol or drug abuse patient.[facility] CenterIn the event this information is protected by the Federal Confidentiality of Alcohol and Drug Abuse Patient Records regulations: The Federal rules restrict any use of the information to criminally investigate or prosecute any alcohol or drug abuse patient.[facility] CenterIn the event this information is protected by the Federal Confidentiality of Alcohol and Drug Abuse Patient Records regulations: The Federal rules restrict any use of the information to criminally investigate or prosecute any alcohol or drug abuse patient.[facility] CenterIn the event this information is protected by the Federal Confidentiality of Alcohol and Drug Abuse Patient Records regulations: The Federal rules restrict any use of the information to criminally investigate or prosecute any alcohol or drug abuse patient.[facility] CenterIn the event this information is protected by the Federal Confidentiality of Alcohol and Drug Abuse Patient Records regulations: The Federal rules restrict any use of the information to criminally investigate or prosecute any alcohol or drug abuse patient.[facility] CenterIn the event this information is protected by the Federal Confidentiality of Alcohol and Drug Abuse Patient Records regulations: The Federal rules restrict any use of the information to criminally investigate or prosecute any alcohol or drug abuse patient.[facility] CenterIn the event this information is protected by the Federal Confidentiality of Alcohol and Drug Abuse Patient Records regulations: The Federal rules restrict any use of the information to criminally investigate or prosecute any alcohol or drug abuse patient.[facility] CenterIn the event this information is protected by the Federal Confidentiality of Alcohol and Drug Abuse Patient Records regulations: The Federal rules restrict any use of the information to criminally investigate or prosecute any alcohol or drug abuse patient.[facility] CenterIn the event this information is protected by the Federal Confidentiality of Alcohol and Drug Abuse Patient Records regulations: The Federal rules restrict any use of the information to criminally investigate or prosecute any alcohol or drug abuse patient.[facility] CenterIn the event this information is protected by the Federal Confidentiality of Alcohol and Drug Abuse Patient Records regulations: The Federal rules restrict any use of the information to criminally investigate or prosecute any alcohol or drug abuse patient.[facility] CenterIn the event this information is protected by the Federal Confidentiality of Alcohol and Drug Abuse Patient Records regulations: The Federal rules restrict any use of the information to criminally investigate or prosecute any alcohol or drug abuse patient.[facility] CenterIn the event this information is protected by the Federal Confidentiality of Alcohol and Drug Abuse Patient Records regulations: The Federal rules restrict any use of the information to criminally investigate or prosecute any alcohol or drug abuse patient.[facility] CenterIn the event this information is protected by the Federal Confidentiality of Alcohol and Drug Abuse Patient Records regulations: The Federal rules restrict any use of the information to criminally investigate or prosecute any alcohol or drug abuse patient.[facility] CenterIn the event this information is protected by the Federal Confidentiality of Alcohol and Drug Abuse Patient Records regulations: The Federal rules restrict any use of the information to criminally investigate or prosecute any alcohol or drug abuse patient.[facility] CenterIn the event this information is protected by the Federal Confidentiality of Alcohol and Drug Abuse Patient Records regulations: The Federal rules restrict any use of the information to criminally investigate or prosecute any alcohol or drug abuse patient.[facility] CenterIn the event this information is protected by the Federal Confidentiality of Alcohol and Drug Abuse Patient Records regulations: The Federal rules restrict any use of the information to criminally investigate or prosecute any alcohol or drug abuse patient.[facility] CenterIn the event this information is protected by the Federal Confidentiality of Alcohol and Drug Abuse Patient Records regulations: The Federal rules restrict any use of the information to criminally investigate or prosecute any alcohol or drug abuse patient.[facility] CenterIn the event this information is protected by the Federal Confidentiality of Alcohol and Drug Abuse Patient Records regulations: The Federal rules restrict any use of the information to criminally investigate or prosecute any alcohol or drug abuse patient.[facility] CenterIn the event this information is protected by the Federal Confidentiality of Alcohol and Drug Abuse Patient Records regulations: The Federal rules restrict any use of the information to criminally investigate or prosecute any alcohol or drug abuse patient.[facility] CenterIn the event this information is protected by the Federal Confidentiality of Alcohol and Drug Abuse Patient Records regulations: The Federal rules restrict any use of the information to criminally investigate or prosecute any alcohol or drug abuse patient.[facility] CenterIn the event this information is protected by the Federal Confidentiality of Alcohol and Drug Abuse Patient Records regulations: The Federal rules restrict any use of the information to criminally investigate or prosecute any alcohol or drug abuse patient.[facility] FOR RECORDS PERTAINING TO PATIENTS WHO ARE OR HAVE BEEN ENROLLED IN A CHEMICAL DEPENDENCY/SUBSTANCEABUSE PROGRAM, SOME INFORMATION MAY BE OMITTED. This clinical summary was aggregated from multiple sources. Caution should be exercised in using it in the provision of clinical care. This summary normalizes information from multiple sources, and as a consequence, information in this document may materially change the coding, format and clinical context of patient data. In addition, data may be omitted in some cases. CLINICAL DECISIONS SHOULD BE BASED ON THE PRIMARY CLINICAL RECORDS. [facility] provides no warranty or guarantee of the accuracy or completeness of information in this document.
[2024-12-20 19:04] LABS: International Normalized Ratio 1.1; Partial Thromboplast Time 23.8 Seconds (24.1-36.2); Prothrombin Time (Protime)PT. 13.9 SECONDS (11.7-14.9)
--- NOTE | 2024-12-20 19:05 | RAD_ITS ---
PROCEDURE: CHEST 1 VIEW (PORTABLE) 12/20/2024 REASON FOR EXAM: FEVER TECHNIQUE: Frontal view of the chest. COMPARISON: Chest radiograph 11/27/2024. FINDINGS: Hardware: Stable left chest wall pacemaker device. Heart: The heart size is normal. Lungs: No focal consolidation, pleural effusion or pneumothorax. Bones: Degenerative changes are identified within the thoracic spine. RAD/Chest 1 View (Portable) IMPRESSION: No Acute Findings. Reading Location: [id number]
[2024-12-20 19:11] LABS: ALB/GLOB Ratio 1.1 RATIO (0.9-2.4); AST(SGOT) 22 U/L (<=31); Alanine Aminotransfer ALT/SGPT 21 U/L (<=34); Albumin, Serum 4.3 g/dL (3.5-5.0); Alkaline Phosphatase 207 U/L (35-104); Anion Gap 12 (5-15); BUN 12 mg/dL (4-19); BUN/Creat Ratio 11.9 RATIO (10-20); Calcium,Total 9.8 mg/dL (7.6-11.0); Carbon Dioxide 24.3 mmol/L (21.0-32.0); Chloride 96 mmol/L (98-108); Creatinine, Serum 0.99 mg/dL (0.70-1.20); EST Glomerular Filtration Rate 66 (>60); Estimated Creatinine Clearance 84.17 ml/min (50-250); Glucose 347 mg/dL (70-99); Potassium 4.5 mmol/L (3.3-5.1); Protein, Total 8.3 g/dL (5.9-8.4); Sodium Level 133 mmol/L (133-145); Vancomycin, Random Level < 4.0 ug/mL (0.0-15.0)
--- NOTE | 2024-12-20 19:43 | EX.ED.DYSGE1 ---
HPI History of Present Illness Chief Complaint: Fever Informant: patient Narrative Narrative: Patient is a 59-year-old female with history of GERD, MRSA bacteremia currently has a PICC line receiving IV vancomycin, nonischemic dilated cardiomyopathy, pacemaker, hypertension type 2 diabetes mellitus presenting with recurrent fevers, nausea, vomiting and back pain. Patient states she had a fever of 102.1 at home today. She developed worsening nausea and vomiting. She notes since discharge from the hospital on 11/26 she has been feeling better. She initially presented with back pain and fever and was diagnosed with bacteremia with unclear source. She has been given herself vancomycin twice a day but notes that she has been having issues with her line being kinked and trouble getting in and. She does not take any today due to her symptoms and yesterday only got half dose each time. She has been in the ER once since discharge for PICC line malfunction. In the ER Cathflo was infused and PICC line was able to be flushed. Patient was then discharged back home. Patient denies any other new symptoms however she is having some mild lower abdominal pain and recurrent back pain which was one of her initial presenting symptoms with her bacteremia. [facility] Medical History MRSA bacteremia Nonischemic cardiomyopathy Diabetes mellitus Bacteremia Low back pain MRSA (methicillin resistant staph aureus) culture positive Cardiomyopathy, ischemic Vitamin D deficiency Neuropathy History of placement of internal cardiac defibrillator (09/03/13) GERD (gastroesophageal reflux disease) Anxiety Obesity Type 2 diabetes mellitus with diabetic neuropathy, unspecified Chest pain Heart disease Headache Arthritis Seasonal allergies Nonischemic dilated cardiomyopathy Gout Pulmonary HTN Hyperlipidemia RLS (restless legs syndrome) HTN (hypertension) Home Medications ?Medication ?Instructions ?Recorded ?Last Taken ?Type docusate sodium 100 mg capsule 100 mg PO BID PRN constipation 05/06/24 12/20/24 History (Colace) CareFine Pen Needle 30 gauge x #120 ea 05/29/24 Unknown Rx 11/27 (pen needle, diabetic) insulin syringe-needle U-100 0.5 #90 ea 05/29/24 Unknown Rx mL 31 gauge x /16 (BD Insulin Syringe Ultra-Fine) sacubitril 24 mg-valsartan 26 mg 1 tab PO BID #60 tabs 06/03/24 12/19/24 Rx tablet (Entresto) blood sugar diagnostic (OneTouch #100 ea 10/15/24 Unknown Rx Verio test strips) 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 meter (OneTouch #1 ea 10/15/24 Unknown Rx Verio Reflect Meter) 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 sensor (FreeStyle #2 ea 10/15/24 Unknown Rx Lance 3 Plus Sensor device) 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,machine maintenance servicer,cont #1 ea 10/15/24 Unknown Rx (FreeStyle Lance 3 [place]) insulin lispro 100 unit/mL 30 unit subcut TID dm 10/19/24 12/19/24 History subcutaneous pen insulin glargine 100 unit/mL (3 40 unit (0.4 mL) subcut BID #30 mL 10/21/24 12/19/24 18:06 Rx mL) subcutaneous pen (Lantus Solostar U-100 Insulin) atorvastatin 10 mg tablet (Lipitor) 10 mg PO DAILY cholesterol #90 tabs 10/22/24 12/20/24 Rx carvedilol 25 mg tablet 25 mg PO Q12H #180 tabs 10/22/24 12/19/24 Rx cetirizine 10 mg capsule 10 mg PO DAILY #90 caps 10/22/24 12/19/24 Rx cholecalciferol (vitamin D3) 1,250 1,250 mcg PO QWEEK #12 caps 10/22/24 12/19/24 Rx mcg (50,000 unit) capsule duloxetine 60 mg capsule,delayed 60 mg PO BID #180 caps 10/22/24 12/19/24 Rx release magnesium oxide 400 mg (241.3 mg 400 mg PO BID #180 tabs 10/22/24 12/19/24 Rx magnesium) tablet spironolactone 25 mg tablet 25 mg PO DAILY #30 tabs 11/04/24 12/19/24 Rx pantoprazole 40 mg tablet,delayed 40 mg PO BID #180 tabs 11/19/24 12/19/24 Rx release (Protonix) ropinirole 0.5 mg tablet 0.5 mg PO QHS #90 tabs 11/19/24 12/19/24 Rx vancomycin 1.75 gram intravenous 1.75 g IV Q12H 39 days 11/25/24 12/19/24 Rx solution gabapentin 300 mg capsule 300 mg PO DAILY #30 caps 12/01/24 12/19/24 21:06 Rx dulaglutide 3 mg/0.5 mL 3 mg (0.5 mL) subcut QWEEK #2 mL 12/10/24 12/16/24 Rx subcutaneous pen injector (Trulicity) Allergy/AdvReac Type Severity Reaction Status Date / Time simvastatin Allergy Severe Myalgia Verified 12/20/24 17:46 Latex, Natural Rubber Allergy Unknown Rash Verified 12/20/24 17:46 metformin Allergy Other Verified 12/20/24 17:46 adhesive tape AdvReac Severe Rash Verified 12/20/24 17:46 Family History Father Heart disease Myocardial infarction CAD (coronary artery disease) Mother CAD (coronary artery disease) Heart disease Cancer breast Grandmother Colon cancer Daughter Breast cancer Surgical History History of left heart catheterization Hx of appendectomy H/O colectomy History of hysteroscopy Social History household members: family and other details: ex mother in law , ex housing: house current occupational status: disabled 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 Smoking Status: Never smoker second hand exposure: No alcohol intake: never substance use type: does not use what type of physical activity do you participate in: none seatbelt use: always do you feel safe at home: Yes ROS ROS ED Constitutional Constitutional ED: Reports chills, fever(s) and sweats ENT ENT ED: Denies sore throat Cardiovascular Cardiovascular: Denies chest pain or palpitations Respiratory/Chest Respiratory/Chest: Denies cough or dyspnea Gastrointestinal Gastrointestinal: Reports abdominal pain, nausea and vomiting; Denies diarrhea or melena Genitourinary Genitourinary ED: Denies dysuria or urinary frequency Musculoskeletal Musculoskeletal: Reports arthralgias and back pain Integumentary Denies rash Neurologic Neurologic: Reports weakness Hematologic/Lymphatic Hematologic/Lymphatic: Denies easy bleeding or easy bruising EXAM Physical Exam Const Vital Signs: 12/20/24 17:42 12/20/24 17:46 12/20/24 17:59 Temperature 98.4 F 98.2 F Temperature Source Oral Oral Pulse Rate 133 H 127 H Respiratory Rate 19 H 16 Respiratory Effort Normal Non-Labored Respiratory Pattern Normal Blood Pressure 134/86 H 164/90 H Blood Pressure Mean 102 114 Pulse Ox 96 95 Oxygen Delivery Method Room Air Room Air 12/20/24 18:07 12/20/24 19:00 12/20/24 19:50 Temperature 99.7 F H 99.5 F H Temperature Source Oral Oral Pulse Rate 123 H 128 H Respiratory Rate 22 H 19 H Respiratory Effort Respiratory Pattern Blood Pressure 118/70 115/71 Blood Pressure Mean 86 85 Pulse Ox 94 94 Oxygen Delivery Method Room Air Room Air Room Air Positive well nourished and well developed General Appearance ED: well developed and NAD HEENT Reports moist mucous membranes Eyes PERRL Neck supple and no JVD Chest Wall inspection of chest normal and palpation of chest normal Resp normal respiratory effort and clear to auscultation bilaterally Auscultation: Negative for rales, rhonchi or wheezes Cardio regular rhythm and no murmurs Rate: tachycardic GI normal to inspection, nondistended, normoactive bowel sounds, non-tender and non-distended Back/Spine no CVA tenderness Back/Spine Narrative: Diffuse lumbar tenderness approximately level of L4 Neuro oriented x3 Neuro Narrative: Ambulatory with a steady gait Sensorium / Orientation: alert Motor Exam: Negative for general weakness Psych mental status grossly normal Skin no rashes or lesions noted and no wounds MDM MDM MDM Narrative Medical decision making narrative: Patient evaluated for recurrent fevers. She is currently on vancomycin through PICC line but notes that recently she been having issues with her PICC line has been running very slowly. She recently had MRSA bacteremia but the initial source was not clear. Septic workup was initiated patient is tachycardic and reports fevers upon arrival. Her white blood cell count is normal and she does not have a left shift. She is hyperglycemic with glucose of 347 however she has a normal anion gap. BMP otherwise unremarkable. No transaminitis present. CRP added on due to recurrent infection with unclear source is mildly elevated at 25.4. Is down from where it was during her admission. Urinalysis is not consistent with infection. Her random Vanco level is less than 4 which is consistent with her not being therapeutic. Patient is loaded with vancomycin in the ER. We are not able to draw cultures from her PICC line but it does flush. I suspect the PICC line dysfunction is led to her noncompliance with the vancomycin. Will be readmitted to the hospital for IV antibiotics and concern for recurrent bacteremia. Patient is agreeable this plan of care. Patient did receive Toradol, fluids and Zofran in the ER with some improvement of her symptoms. Case discussed with hospitalist for admission. She will add on CT of the lumbar spine and abdomen pelvis given that she is having recurrent pain there and sure that nothing has blossomed or jacket changer the past few weeks History & Record Review Additional record(s) reviewed:: Prior inpatient record (Discharge summary-MRSA bacteremia, unclear source-discharged with vancomycin and PICC line) Lab Data Attestation: I reviewed the patient's lab results. Labs: Laboratory Results - last 24 hr 12/20/24 12/20/24 18:40 19:47 WBC 10.1 RBC 4.76 Hgb 14.2 Hct 42.0 MCV 88.2 MCH 29.8 MCHC 33.8 RDW Std Deviation 46.1 H RDW Coeff of [place] 14.5 Plt Count 147 L MPV 9.6 Immature Gran % (Auto) 0.500 Neut % (Auto) 85.9 H Lymph % (Auto) 7.4 L [place] % (Auto) 5.4 Eos % (Auto) 0.3 Baso % (Auto) 0.5 Absolute Neuts (auto) 8.7 H Absolute Lymphs (auto) 0.75 L Nucleated RBC % 0 PT 13.9 INR 1.1 APTT 23.8 L Sodium 133 Potassium 4.5 Chloride 96 L Carbon Dioxide 24.3 Anion Gap 12 BUN 12 Creatinine 0.99 Estim Creat Clear Calc 84.17 Est GFR (MDRD) Non-Af 66 BUN/Creatinine Ratio 11.9 Glucose 347 H Lactic Acid 2.3 H* Calcium 9.8 Total Bilirubin 0.60 AST 22 ALT 21 Alkaline Phosphatase 207 H C-React Prot Ext Range 25.40 H Total Protein 8.3 Albumin 4.3 Globulin 4.0 Albumin/Globulin Ratio 1.1 Urine Color Yellow Urine Clarity Sl. Cloudy Urine pH 6.5 Ur Specific Rowe 1.015 Urine Protein 15 H Urine Glucose (UA) 1000 H Urine Ketones Negative Urine Occult Blood 10 H Urine Nitrite Negative Urine Bilirubin Negative Urine Urobilinogen Normal Ur Leukocyte Esterase Negative Urine RBC 0-5 SEEN Urine WBC 0-5 SEEN Ur Squamous Epith Cells 0-5 SEEN Urine Bacteria 0 SEEN Urine Mucus 0 SEEN Random Vancomycin < 4.0 Radiography Chest X-Ray - ED: 1 View, Read by ED Physician, Read by Radiologist and No Acute Disease Diagnostic Testing: Clinical Impression(s) from Imaging Studies Chest X-Ray 12/20/24 19:05 IMPRESSION: No Acute Findings. Reading Location: [id number] Rhythm Strip Rhythm Strip: Sinus Tach Rate: 125 Ectopy: None EKG Initial EKG: Attestation: I personally reviewed and interpreted this EKG as follows: Interpretation: Paced Comments: Atrial sensed ventricular paced rhythm at a rate 125 bpm Normal axis Nonspecific T wave changes with no significant morphology change compared to prior EKG on 11/20/2024 Management Discussion w/another healthcare provider: Hospitalist Discharge Plan Dx/Rx/DC Orders Clinical Impression: Fever, Tachycardia, Failure of outpatient treatment, PICC (peripherally inserted central catheter) in place, Hx of bacteremia Disposition Disposition: Acute Care Hospital [facility] Discharge Date/Time: 12/20/24 21:41
[2024-12-20 19:53] LABS: Bacteria 0 SEEN /hpf (None Seen); Mucous, Urine 0 SEEN /hpf (<or=2+)
[2024-12-20 19:55] LABS: Color, Urine Yellow (Yellow); Glucose, Dipstick 1000 mg/dl (Normal); Ketone-Dipstick Negative (Negative); Leukocyte Esterase-Dipstick Negative /ul (Negative); Nitrite-Dipstick Negative (Negative); Occult Blood-Urine 10 /ul (Negative); Protein-Dipstick 15 mg/dl (Negative); Specific Gravity, Urine 1.015 (1.002-1.030); Urine Bilirubin Dipstick Negative (Negative); Urine Clarity Sl. Cloudy (Clear); Urine Urobilinogen Normal (Normal); Urine pH 6.5 (5.0 - 8.0)
[2024-12-20] MEDS: Vancomycin HCl 1,750 MG in 0.9% Normal Saline (500mL Bag) 500 ML 250 MG IV (19:56)
[2024-12-20 20:12] LABS: Red Blood Cells-Urine 0-5 SEEN /hpf (0-5); Squamous Epithelial Cells - UA 0-5 SEEN /hpf (5-10); White Blood Cells 0-5 SEEN /hpf (0-5)
[2024-12-20 20:17] LABS: Lactic Acid 2.3 mmol/L (0.0-2.0)
--- NOTE | 2024-12-20 20:27 | PCM.HP.STD ---
HPI - General General Date of Admission: 12/20/24 Date of Service: 12/20/24 Chief Complaint: Back pain, N/V, lower abdominal discomfort HPI Narrative The patient is a 59 y/o F w/ PMHx: Anxiety and depression, CKD stage II per GFR trending although has vacillated, ischemic cardiomyopathy/HFrEF s/p AICD, HTN, HLD, GERD, Diabetes mellitus type II with chronic neuropathy, Allergic rhinitis, Gout, Obesity, RLS who presents to the [facility] ED on 12/20/2024 with history of recent MRSA bacteremia suspected per ID from a recent fall previous to her presentation with a scrape to the left elbow with unremarkable workup otherwise with KANDY with no evidence of any vegetations and eventual repeat blood cultures negative with a noncontrast lumbar CT with degenerative changes only given back discomfort and unfortunately pacer ICD not compatible with MRI with current PICC line in place receiving IV vancomycin with planned duration x 6 weeks with stop date 01/02/2025 with weekly labs and ID follow-up initially feeling improved since her discharge from the hospital 11/26/2024 unfortunately with onset of recurrent fevers, nausea and emesis as well as lumbar back pain in addition to lower bilateral quadrant abdominal discomfort worse on the left than the right with a fever of up to 102.1 at home today although she does report that she has had some difficulty giving herself her home vancomycin twice daily and is concerned that she may potentially not have been getting the infusion correctly because the tubing has been kinked noting that she may have even only gotten half a dose twice the day prior and not on day of presentation presenting 1 slightly since her discharge for PICC line malfunction with Cathflo infusion. Workup in the ED included T98.4, heart rate 133, BP 130/86, respiratory rate 19, 96% on room air with most recent repeat vitals T99.5, heart rate 128, BP 115/71, respiratory rate 19, 94% on room air, CBC with WBC 10.1, he 1 14.2, platelet 147 with left shift and lymphopenia, unremarkable coags aside PT 23.8, CMP with chloride 96, glucose 347, BUN/creatinine 12/0.99, GFR 66, alk phos 207 otherwise hepatic profile not marked appearing, lactic acid 2.3, CRP 25.40, urinalysis with no obvious evidence of UTI, random Vanco level less than 4, chest x-ray with no acute cardiopulmonary findings. In the ED patient ministered Toradol 50 mg IV x 1, Zofran 4 mg IV x 1, 2 L normal saline and vancomycin 1750 mg IV x 1. [facility] Medical History MRSA bacteremia Nonischemic cardiomyopathy Diabetes mellitus Bacteremia Low back pain MRSA (methicillin resistant staph aureus) culture positive Cardiomyopathy, ischemic Vitamin D deficiency Neuropathy History of placement of internal cardiac defibrillator (09/03/13) GERD (gastroesophageal reflux disease) Anxiety Obesity Type 2 diabetes mellitus with diabetic neuropathy, unspecified Chest pain Heart disease Headache Arthritis Seasonal allergies Nonischemic dilated cardiomyopathy Gout Pulmonary HTN Hyperlipidemia RLS (restless legs syndrome) HTN (hypertension) Home Medications ?Medication ?Instructions ?Recorded ?Last Taken ?Type docusate sodium 100 mg capsule 100 mg PO BID PRN constipation 05/06/24 12/20/24 History (Colace) CareFine Pen Needle 30 gauge x #120 ea 05/29/24 Unknown Rx 5/16 (pen needle, diabetic) insulin syringe-needle U-100 0.5 #90 ea 05/29/24 Unknown Rx mL 31 gauge x 5/16 (BD Insulin Syringe Ultra-Fine) sacubitril 24 mg-valsartan 26 mg 1 tab PO BID #60 tabs 06/03/24 12/19/24 Rx tablet (Entresto) blood sugar diagnostic (OneTouch #100 ea 10/15/24 Unknown Rx Verio test strips) 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 meter (OneTouch #1 ea 10/15/24 Unknown Rx Verio Reflect Meter) 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 sensor (FreeStyle #2 ea 10/15/24 Unknown Rx Lance 3 Plus Sensor device) 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,career resource technician,cont #1 ea 10/15/24 Unknown Rx (FreeStyle Lance 3 [place]) insulin lispro 100 unit/mL 30 unit subcut TID dm 10/19/24 12/19/24 History subcutaneous pen insulin glargine 100 unit/mL (3 40 unit (0.4 mL) subcut BID #30 mL 10/21/24 12/19/24 18:06 Rx mL) subcutaneous pen (Lantus Solostar U-100 Insulin) atorvastatin 10 mg tablet (Lipitor) 10 mg PO DAILY cholesterol #90 tabs 10/22/24 12/20/24 Rx carvedilol 25 mg tablet 25 mg PO Q12H #180 tabs 10/22/24 12/19/24 Rx cetirizine 10 mg capsule 10 mg PO DAILY #90 caps 10/22/24 12/19/24 Rx cholecalciferol (vitamin D3) 1,250 1,250 mcg PO QWEEK #12 caps 10/22/24 12/19/24 Rx mcg (50,000 unit) capsule duloxetine 60 mg capsule,delayed 60 mg PO BID #180 caps 10/22/24 12/19/24 Rx release magnesium oxide 400 mg (241.3 mg 400 mg PO BID #180 tabs 10/22/24 12/19/24 Rx magnesium) tablet spironolactone 25 mg tablet 25 mg PO DAILY #30 tabs 11/04/24 12/19/24 Rx pantoprazole 40 mg tablet,delayed 40 mg PO BID #180 tabs 11/19/24 12/19/24 Rx release (Protonix) ropinirole 0.5 mg tablet 0.5 mg PO QHS #90 tabs 11/19/24 12/19/24 Rx vancomycin 1.75 gram intravenous 1.75 g IV Q12H 39 days 11/25/24 12/19/24 Rx solution gabapentin 300 mg capsule 300 mg PO DAILY #30 caps 12/01/24 12/19/24 21:06 Rx dulaglutide 3 mg/0.5 mL 3 mg (0.5 mL) subcut QWEEK #2 mL 12/10/24 12/16/24 Rx subcutaneous pen injector (Trulicity) Allergy/AdvReac Type Severity Reaction Status Date / Time simvastatin Allergy Severe Myalgia Verified 12/20/24 17:46 Latex, Natural Rubber Allergy Unknown Rash Verified 12/20/24 17:46 metformin Allergy Other Verified 12/20/24 17:46 adhesive tape AdvReac Severe Rash Verified 12/20/24 17:46 Family History Father Heart disease Myocardial infarction CAD (coronary artery disease) Mother CAD (coronary artery disease) Heart disease Cancer breast Grandmother Colon cancer Daughter Breast cancer Surgical History History of left heart catheterization Hx of appendectomy H/O colectomy History of hysteroscopy Social History household members: family and other details: ex mother in law , ex housing: house current occupational status: disabled 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 HEENT: Eyes: No visual loss, blurred vision, double vision or yellow sclerae. Ears, Nose, Throat: No hearing loss, sneezing, congestion, runny nose or sore throat. SKIN: No rash or itching, lesions, wounds. CARDIOVASCULAR: No chest pain, chest pressure or chest discomfort, palpitations, edema, orthopnea, syncopal events. RESPIRATORY: No shortness of breath, cough or sputum, wheezing, hemoptysis. GASTROINTESTINAL: + Anorexia, nausea, vomiting, lower abdominal discomfort bilaterally, left greater than right. No diarrhea, melena, BRBPR. GENITOURINARY: No dysuria, frequency, urgency or retention. NEUROLOGICAL: No headache, dizziness, syncope, paralysis, ataxia, numbness or tingling in the extremities, focal weakness, change in bowel or bladder control, seizure. MUSCULOSKELETAL: +muscle, back pain, joint pain or stiffness. HEMATOLOGIC: No anemia. + Easy bleeding/bruising. LYMPHATICS: No enlarged nodes. No history of splenectomy. PSYCHIATRIC: + History of anxiety and depression. ENDOCRINOLOGIC: No reports of sweating, cold or heat intolerance. No polyuria or polydipsia. ALLERGIES: + History of allergic rhinitis. Vital Signs Vital Signs Vital Signs: 12/20/24 17:42 12/20/24 17:46 12/20/24 17:59 Temperature 98.4 F 98.2 F Temperature Source Oral Oral Pulse Rate 133 H 127 H Respiratory Rate 19 H 16 Respiratory Effort Normal Non-Labored Respiratory Pattern Normal Blood Pressure 134/86 H 164/90 H Blood Pressure Mean 102 114 Pulse Ox 96 95 Oxygen Delivery Method Room Air Room Air 12/20/24 18:07 12/20/24 19:00 12/20/24 19:50 Temperature 99.7 F H 99.5 F H Temperature Source Oral Oral Pulse Rate 123 H 128 H Respiratory Rate 22 H 19 H Respiratory Effort Respiratory Pattern Blood Pressure 118/70 115/71 Blood Pressure Mean 86 85 Pulse Ox 94 94 Oxygen Delivery Method Room Air Room Air Room Air Weight Weight: 255 lb 8.252 oz Body Mass Index (BMI) 37.7 Physical Exam Narrative Physical Examination: General: Awake, alert, oriented x 3 and cooperative, laying in the bed, fatigued, no acute distress. Skin: Mildly flushed color, normal turgor, no icterus, no cyanosis except occasional stage ecchymoses, abrasion, small petechiae to the lower extremities bilaterally. HEENT: AT/NC, EOMI, PERRLA, mildly dry MM, no carotid bruits, difficult to discern JVD given thickened neck. Lungs: Mildly diminished, better bases, mild increased respiratory rate but no distress, no rales, ronchi or wheezing. Heart: Tachycardic with regular rhythm; no gallop, rub audible. Abdomen: Soft, obese, mild discomfort to palpation of the bilateral lower quadrants left greater than right with no rebound or guarding, no suprapubic discomfort, no flank discomfort, no obvious distention or tympany, distant BS, difficult to discern HSM given habitus. Extremities: No cyanosis, clubbing, or edema, see skin. Neurological: Patient awake, alert, oriented as noted, cognitive function intact; pupils equally reactive to light and accommodation, cranial nerves gross normal, moving all 4 extremities, no focal deficits, strength moderately to severely globally decreased secondary to acute presentation. Psychiatric: Affect appears flat, fatigued, ill-appearing, no acute evidence of depressive or anxiety feelings but does have underlying history. Results Lab / Micro Data 12/20/24 18:40 12/20/24 18:40 Labs: Laboratory Results - last 24 hr 12/20/24 18:40: WBC 10.1, RBC 4.76, Hgb 14.2, Hct 42.0, MCV 88.2, MCH 29.8, MCHC 33.8, RDW Std Deviation 46.1 H, RDW Coeff of [place] 14.5, Plt Count 147 L, MPV 9.6, Immature Gran % (Auto) 0.500, Neut % (Auto) 85.9 H, Lymph % (Auto) 7.4 L, [place] % (Auto) 5.4, Eos % (Auto) 0.3, Baso % (Auto) 0.5, Absolute Neuts (auto) 8.7 H, Absolute Lymphs (auto) 0.75 L, Nucleated RBC % 0, PT 13.9, INR 1.1, APTT 23.8 L, Sodium 133, Potassium 4.5, Chloride 96 L, Carbon Dioxide 24.3, Anion Gap 12, BUN 12, Creatinine 0.99, Estim Creat Clear Calc 84.17, Est GFR (MDRD) Non-Af 66, BUN/Creatinine Ratio 11.9, Glucose 347 H, Lactic Acid 2.3 H*, Calcium 9.8, Total Bilirubin 0.60, AST 22, ALT 21, Alkaline Phosphatase 207 H, C-React Prot Ext Range 25.40 H, Total Protein 8.3, Albumin 4.3, Globulin 4.0, Albumin/Globulin Ratio 1.1, Random Vancomycin < 4.0 12/20/24 19:47: Urine Color Yellow, Urine Clarity Sl. Cloudy, Urine pH 6.5, Ur Specific [place] 1.015, Urine Protein 15 H, Urine Glucose (UA) 1000 H, Urine Ketones Negative, Urine Occult Blood 10 H, Urine Nitrite Negative, Urine Bilirubin Negative, Urine Urobilinogen Normal, Ur Leukocyte Esterase Negative, Urine RBC 0-5 SEEN, Urine WBC 0-5 SEEN, Ur Squamous Epith Cells 0-5 SEEN, Urine Bacteria 0 SEEN, Urine Mucus 0 SEEN Imaging Radiology Impression Chest X-Ray 12/20/24 19:05 IMPRESSION: No Acute Findings. Reading Location: [id number] Assessment & Plan Assessment/Plan (1) MRSA bacteremia: PLAN: Plan The patient is a 59 y/o F w/ PMHx: Anxiety and depression, CKD stage II per GFR trending although has vacillated, ischemic cardiomyopathy/HFrEF s/p AICD, HTN, HLD, GERD, Diabetes mellitus type II with chronic neuropathy, Allergic rhinitis, Gout, Obesity, RLS who presents to the [facility] ED on 12/20/2024 with history of recent MRSA bacteremia suspected per ID from a recent fall previous to her presentation with a scrape to the left elbow with unremarkable workup otherwise including negative KANDY with onset of recurrent fevers, nausea and emesis as well as lumbar back pain with a fever of up to 102.1 at home today although she does report that she has had some difficulty giving herself her home vancomycin twice daily and is concerned that she may potentially not have been getting the infusion correctly because the tubing has been kinked noting that she may have even only gotten half a dose twice the day prior and not on day of presentation presenting 1 slightly since her discharge for PICC line malfunction with Cathflo infusion. #1. Recent MRSA bacteremia suspected secondary to recent left elbow injury with recurrent PICC malfunction with suspected underdosing of vancomycin with recurrent fevers in addition to intractable nausea and emesis as well as persistent lumbar back pain with mild lactic acidosis but no overt endorgan damage: Will admit to PCU, maintain on IV vancomycin, will also obtain ESR, will request involvement of infectious disease, will assure that at least 1 blood culture has been obtained from a new PICC line, may need to consider alternate access but ideally would like to make sure that there is no recurrent bacteremia, given persistent lumbar back pain with no obvious evidence of UTI we will request to be cautious CT abdomen and pelvis and CT lumbar spine to assure no source evident given the time lapse since initial evaluation, will allow clear liquids with judicious fluids given ischemic, apathy history with reduced EF status post AICD, maintain on IV PPI, antiemetic and pain regimen as needed, PT/OT/case management consulted for discharge planning. #2. Thrombocytopenia, new onset during previous admission: Admission platelet 147, during recent admission patient did have evidence of new onset thrombocytopenia, 11/25/2024 at last lab prior to discharge platelets 142, 12/15/2024 evaluation platelets 142, will continue to trend, likely related with acute presentation, reactive component. #3. HFrEF/ischemic cardiomyopathy: Status post AICD, not compatible for MRI unfortunately, has complicated current presentation is unable to perform MRI for lumbar back pain with no obvious acute findings on CT, will judiciously hydrate given underlying history, continue aspirin, statin, Coreg, Entresto, spironolactone as BP allows. #4. Diabetes mellitus type II with hyperglycemia with chronic neuropathy: Hold oral home regimen, continue home insulin regimen, initiate on clears given GI symptoms with advance diet as tolerated once improving, maintain in the interim on every 6 hours accu checks w/ ISS, continue home gabapentin regimen. #5. Hypertension: Continue home regimen including spironolactone, Entresto, Coreg with hold parameters as needed, PRN hydralazine. #6. Hyperlipidemia: Will continue patient on statin therapy. #7. Anxiety and depression: Will continue patient on duloxetine regimen. #8. Chronic Kidney Disease Stage II per GFR trending although has vacillated: Admission BUN/Cr 12/0.99, GFR 66, baseline renal function primarily 0.6-0.9, repeat BMP in AM. #9. Obesity: Weight loss and lifestyle changes encouraged. #10. GERD: Will maintain on IV PPI given acute presentation with GI symptoms, transition back to oral regimen once appropriate. #11. Restless leg syndrome: Will continue patient on Requip regimen. #12. Allergic rhinitis: Will continue patient on cetirizine regimen. #13. DVT prophylaxis: Lovenox. Charges/Coding Visit Charges Inpatient E&M: 54004 Init Hosp L3
--- NOTE | 2024-12-20 20:33 | CT_ITS ---
PROCEDURE: ABDOMEN/PELVIS W IV CONT ONLY 12/20/2024 REASON FOR EXAM: INTRACTABLE N/V, ABDOMINAL PAIN, FEVERS TECHNIQUE: Abdomen and pelvis CT with intravenous contrast. Coronal and Sagittal reconstruction series were provided. PATIENT PREPARATION: Per protocol ORAL CONTRAST TYPE: None. CONTRAST: Isovue 370 VOLUME: 100 mL One or more dose reduction techniques were used (e.g., Automated exposure control, adjustment of the mA and/or kV according to patient size, use of iterative reconstruction technique. RADIATION DOSE SUMMARY: DLP: 1400 mGycm COMPARISON: Same day CT L-spine, CT abdomen pelvis 11/20/2024. FINDINGS: Lung bases: Bibasilar atelectasis. Severe coronary artery calcifications. Partially visualized pacemaker leads. Liver: The liver is normal in size without suspicious hepatic mass. The major portal veins are patent. No biliary ductal dilation. Gallbladder: No radiopaque stones within the gallbladder. Spleen: Normal in size. Pancreas: Unremarkable. Adrenals: No adrenal mass. Kidneys: No hydronephrosis or nephrolithiasis. Bladder: Decompressed. Reproductive Organs: Prior hysterectomy. Bowel: The bowel loops are nondilated. No ascites or pneumoperitoneum. Suture material within the expected region of the appendix. Lymph nodes: Periportal nodes, likely reactive. No suspicious lymphadenopathy. Vasculature: The abdominal aorta and IVC are normal. Bones: Thoracolumbar spondylosis. CT/Abdomen/Pelvis W IV Cont ONLY IMPRESSION: No acute abdominopelvic finding. Reading Location: [id number]
--- NOTE | 2024-12-20 20:33 | CT_ITS ---
PROCEDURE: SPINE LUMBAR WITHOUT CONTRAST 12/20/2024 REASON FOR EXAM: LUMBAR PAIN, FEVERS TECHNIQUE: Lumbar spine CT without contrast. Coronal and Sagittal reconstruction series were provided. One or more dose reduction techniques were used (e.g., Automated exposure control, adjustment of the mA and/or kV according to patient size, use of iterative reconstruction technique COMPARISON: CT L-spine 11/20/2024. RADIATION DOSE SUMMARY: DLP: 1900 mGycm FINDINGS: Vertebrae: No acute osseous fracture. The vertebral body heights are maintained. Mild multilevel spondylosis. Alignment: No traumatic listhesis. Discs: Multilevel degenerative disc disease, greatest and of severe degree at L5-S1. Sacrum: Mild SI joint arthrosis. The visualized pelvic structures are grossly unremarkable. CT/Spine Lumbar without Contrast IMPRESSION: NO ACUTE LUMBAR FRACTURE. DEGENERATIVE CHANGES. Reading Location: [id number]
[2024-12-20] MEDS: Alteplase 2 MG/2 ML Vial IV (21:38)
--- OUTSIDE RECORDS SUMMARY | 2024-12-20 21:40 | XMS RPT_ITS | CCD ---
Author Organization [facility] Inform ion Partnership [facility] Care Team Providers Care 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 Name Role Phone Carmelita Fernandes LPN Unavailable Unavailable VICKI, LETICIA PAC Unavailable Unavailable VICKI, LETICIA PAC Unavailable Unavailable VICKI, LETICIA PAC Unavailable Unavailable MEHRDAD MARTINEZ MD Unavailable Unavailable PROVIDER, UNKNOWN Unavailable Unavailable PROVIDER, UNKNOWN Unavailable Unavailable PROVIDER, UNKNOWN Unavailable Unavailable Ha Rivas Primary Care Provider [phone] No, Physician Primary Care Provider Unavailabl e No, Physician Primary Care Provider Unavailabl e No, Physician Primary Care Provider Unavailabl e Ha Vasquez Care Team Information Receive r Abbey Oliveira CNP Care Team Information Receive r Abbey Oliveira CNP Care Team Information Receive r SLY NIX DPM Care Team Information Receiv er Ha Vasquez Primary Care Physician Ha Vasquez Care Team Information Receive r Abbey Oliveira CNP Care Team Information Receive r Abbey Oliveira CNP Care Team Information Receive r SLY NIX DPM Care Team Information Receiv er Ha Vasquez Primary Care Physician Evelyn DURAN, Ha Care Team Information Receive r Alberto SPEECH LANGUAGE SPECIALIST, Abbey Care Team Information Receive r Alberto SPEECH LANGUAGE SPECIALIST, Abbey Care Team Information Receive r BOYD MARI, SLY F Care Team Information Receiv er Ha Vasquez Primary Care Physician Evelyn DURAN, Ha Care Team Information Receive r Alberto SPEECH LANGUAGE SPECIALIST, Abbey Care Team Information Receive r Alberto SPEECH LANGUAGE SPECIALIST, Abbey Care Team Information Receive r BOYD MARI, SLY F Care Team Information Receiv er Ha Vasquez Primary Care Physician Evelyn DURAN, Ha Care Team Information Receive r Alberto SPEECH LANGUAGE SPECIALIST, Abbey Care Team Information Receive r Alberto SPEECH LANGUAGE SPECIALIST, Abbey Care Team Information Receive r BOYD MARI, SLY F Care Team Information Receiv er Ha Vasquez Primary Care Physician Evelyn DURAN, Ha Care Team Information Receive r Alberto SPEECH LANGUAGE SPECIALIST, Abbey Care Team Information Receive r [place] - Se[place] - Nubia Care Team Information Receive r Alberto SPEECH LANGUAGE SPECIALIST, Abbey Care Team Information Receive r BOYD MARI, SLY F Care Team Information Receiv er Ha Vasquez Primary Care Physician Janice Zuniga Unavailable Mari Manuel Unavailable Ike Mar Unavailable Evelyn MEJIA BINDERY WORKER-C, Ha Primary Care Provider Skyler PANEL MAKER Cam MEDINA Unavailable [phone] BOYD DPM, SLY Hernandez Care Team Information Receiv er Evelyn PANEL MAKER BINDERY WORKER-C, Ha Primary Care Provider No, Physician Primary Care Provider Unavailabl e Unavailable Primary Care Provider Unavailabl e MILKA RODRIGUEZ Referring Unavailable RUY Rivas Aparna Primary Care Provider RUY Rivas Attending Provider Boyd DPM, DPM Sly Hernandez Attending Provider [phone] DO Abhinav Mcclellan DO Emergency Provider [phone] Boyd DPM, DPM Sly Hernandez Attending Provider [phone] NICK BRANCH Attending Unavailabl e NO, PHYSICIAN Primary Care Unavailable NO, PHYSICIAN Primary Care Unavailable NICK BRANCH Attending Unavailabl e NO, PHYSICIAN Primary Care Unavailable KATE ROSARIO Attending Unavailable NO, PHYSICIAN Primary Care Unavailable KATE ROSARIO Attending Unavailable SYLVESTER, BEVERLYD Attending Unavailable EVELYN, HA Primary Care Unavailable [...] Evelyn, Ha A. Primary Care Unavailable Sylvester, Dave Kraft Attending Unavailable Eevlyn, Ha A. Primary Care Unavailable Evelyn, Ha A. Primary Care Unavailable Abhinav Mcclellan DO Attending Unavailable Boyd DPShanell, Sly Hernandez Attending Unavailable Evelyn, Ha A. Primary Care Unavailable Vlad Alaniz MD Attending Unavailable Evelyn, Ha A. Primary Care Unavailable Evelyn, Ha A. Attending Unavailable Evelyn, Ha A. Primary Care Unavailable Ha Rivas Attending Unavailable Ha Rivas Primary Care Unavailable Ha Rivas Attending Unavailable Ha Rivas Primary Care Unavailable No, Physician Primary Care Provider Unavailabl e ABBEY OLIVEIRA Attending Unavailable NO, PHYSICIAN Primary Care Unavailable NO, PHYSICIAN Primary Care Unavailable ABBEY OLIVEIRA Attending Unavailable NO, PHYSICIAN Primary Care Unavailable ABBEY OLIVEIRA Attending Unavailable NO, PHYSICIAN Primary Care Unavailable MILKA RODRIGUEZ Attending Unavailable NO, PHYSICIAN Primary Care Unavailable JUANY HARDEN Attending Unavailable [facility], Aby Unavailable Caprice PEREZ, Homar Maritza Primary Care Prov ider Scottie PEREZ, Williams Unavailable Scottie PEREZ, Williams Unavailable Scottie PEREZ, Williams Unavailable Jeanie Murphy RN Unavailable Unavailable [facility], Aby Unavailable Caprice PEREZ, Homar Maritza [facility] Prov [facility]onia Unavailable CAPRICE, HOMAR MARITZA Primary Care Unav ailable EVAN BARNETT Referring Unavailable CAPRICE, HOMAR MARITZA Referring Unav ailable CAPRICE, HOMAR MARITZA Primary Care Unav ailable [facility], Sonia Unavailable [phone] Jeanie Murphy RN Unavailable Unavailable Primary Care Provider Unavailabl e CAPRICE, HOMAR MARITZA Primary Care Unav ailable CAPRICE, HOMAR MARITZA Primary Care Unav ailable CAPRICE, HOMAR MARITZA Primary Care Unav ailable RUBIN, WILLIAMS Attending Unavailable CAPRICE, HOMAR MARITZA Primary Care Unav ailable CAPRICE, HOMAR MARITZA Primary Care Unav ailable RUBIN, WILLIAMS Attending Unavailable CAPRICE, HOMAR MARITZA Primary Care Unav ailable SELF Referring Unavailable CAPRICE, HOMAR MARITZA Primary Care Unav ailable JAMIE AGGARWAL Referring Unavailabl e CAPRICE, HOMAR MARITZA Primary Care Unav ailable CAPRICE, HOMAR MARITZA Primary Care Unav ailable CAPRICE, HOMAR MARITZA Primary Care Unav ailable MANNY SHIELDS Attending Unavailable CAPRICE, HOMAR MARITZA Primary Care Unav ailable CAPRICE, HOMAR MARITZA Primary Care Unav ailable Care Physician, No Primary Referring Provider Un available Dr. Lisseth Peñaloza MD Primary Care Provider [phone] Jh PEREZ, Dr. Montanez Attending Provider Jh PEREZ, Dr. Montanez Referring Provider Sonia Angulo Attending Provider Shawanda Pope Attending Provider [phone] Kale PEREZ, Dr. Daniels Attending Provider Kale PEREZ, Dr. Daniels Referring Provider Dr. Jeremiah Henley MD Emergency Provider Dr. Jean Trujillo MD Attending Provider Dr. Javy Saul DO Emergency Provider Osman PEREZ, Dr. Lemus Admit Provider Osman PEREZ, Dr. Lemus Attending Provider Care Physician, No Primary Referring Provider Un available Dr. Lisseth Peñaloza MD Primary Care Provider [phone] Dr. Lisseth Peñaloza MD Attending Provider Dr. Lisseth Peñaloza MD Referring Provider Sonia Angulo Attending Provider Shawanda Pope Attending Provider Kale PEREZ, Dr. Daniels Attending Provider Dr. Jeremiah Henley MD Referring Provider Dr. Jeremiah Henley MD Emergency Provider Dr. Jean Trujillo MD Attending Provider Dorys CHAMPAGNE, Dr. Palafox Emergency Provider Osman PEREZ, Dr. Lemus Admit Provider Osman PEREZ, Dr. Lemus Other Provider Kitty PEREZ, Dr. Angeles Other Provider Catherine PEREZ, Dr. Lazo Other Provider Escobar PEREZ, Dr. Horton Other Provider Eleuterio CHAMPAGNE, Dr. Chavarria Other Provider Marilee PEREZ, Dr. Jeanie Garcia Other Provider [phone] Dorothy PEREZ, Dr. Tolentino Other Provider [phone] Patricio PEREZ, Dr. Butterfield Other Provider [phone] Martir PEREZ, Dr. Veronica Other Provider Lukasz PEREZ, Dr. Cloud Other Provider [phone] Alon PEREZ, Dr. Roldan Other Provider [phone] Dr. Jesus Varela MD Other Provider Dr. Lara Durant MD Other Provider Dr. Sigrid Adkins MD Other Provider Unavailabl criselda Mclean MD, Dr. Jensen Other Provider [phone] John PEREZ, Dr. Vanegas Other Provider Diann PEREZ, Dr. Garland Other Provider Arianna PEREZ, Dr. Martin Other Provider Dr. Flash Newton DO Other Provider [phone] Lida Falcon MD Other Provider [phone] Vicente PEREZ, Dr. Booker Other Provider [phone] Varun Collier DO Other Provider Emir PEREZ, Dr. Goldberg Other Provider [phone] Jefferson PEREZ, Dr. Sarkar Other Provider Ronnie PEREZ, Dr. Pena Other Provider Eun PEREZ, Dr. Pearson Other Provider Freida PEREZ, Dr. Denisse Banegas Attending Provider Sarah CHAMPAGNE, Dr. Maloney Other Provider Dr. Haider Smith DO Attending Provider Tim PEREZ, Dr. Garcia Attending Provider Arin PEREZ, Dr. Tan Attending Provider Freida PEREZ, Dr. Denisse Banegas Other Provider Dr. Haider Valdes DO Emergency Provider Eun PEREZ, Dr. Pearson Attending Provider Eun PEREZ, Dr. Pearson Referring Provider Jh PEREZ, Dr. Montanez Primary Care Provider Dr. Lisseth Peñaloza MD Attending Provider Care Physician, No Primary Referring Provider Un available Dr. Haider Valdes DO Attending Provider Jay Alvarez Attending Provider Jh, Lisseth Primary Care Unavailable Michel Haq Attending Unavailable Jh, Lisseth Primary Care Unavailable Michel Haq Referring Unavailable Michel Haq Attending Unavailable Jh, Lisseth Primary Care Unavailable Haider Valdes Attending Unavailable Jh, Lisseth Primary Care Unavailable Mariah Brewer Consulting Unavailable Mariah Brewer Admitting Unavailable Kasandra Hinkle Attending Unavailable Karthik Tang Consulting Unavailable Clifton Alexander Consulting Unavailable Clifford Cody Consulting Unavailable Deon Mcclellan Consulting Unavailable Jeanie Hunt Consulting Unavailable Rajan De La Cruz Consulting Unavailable Scout Curry Consulting Unavailable Glenys Mcmahan Consulting Unavailab Pedro Luis Clarke Consulting Unavailable Jamar Chi Consulting Unavailable Jesus Varela Consulting Unavailable Lara Durant Consulting Unavailable [place], Lamia Consulting Unavailable Mclean, Camila Consulting Unavailable John, Guilherme Consulting Unavailable Irukulla, Dada Consulting Unavailable Arianna, Mario Consulting Unavailable Dhesi, Flash Consulting Unavailable Lida Falcon Consulting Unavailable [place], Soleyah Consulting Unavailable Maritzatrgemma, Varun Consulting Unavailable Emir, Yusuf Consulting Unavailable Thomas Paulino Consulting Unavailable Ronnie, Sprakers Consulting Unavailable Michel Haq Consulting Unavailable Haider Smith Consulting Unavailable [place], Lisseth Primary Care Unavailable Freida, Denisse Makenzie Attending Unavailable Mariah Brewer Admitting Unavailable Mariah Brewer Consulting Unavailable Karthik Tang Consulting Unavailable Clifton Alexander Consulting Unavailable Clifford Cody Consulting Unavailable Deon Mcclellan Consulting Unavailable Jeanie Hunt Consulting Unavailable Rajan De La Cruz Consulting Unavailable Scout Curry Consulting Unavailable Glenys Mcmahan Consulting UnavailPedro Luis Iglesias Consulting Unavailable Jamar Chi Consulting Unavailable Jesus Varela Consulting Unavailable Lara Durant Consulting Unavailable Sigrid Adkins Consulting Unavailable Camila Mclean Consulting Unavailable John, Guilherme Consulting Unavailable Irukulla, Dada Consulting Unavailable Arianna, Mario Consulting Unavailable Dhesi, Flash Consulting Unavailable Terrie, Sujoy Consulting Unavailable Vicente, Soleyah Consulting Unavailable Amira, Varun Consulting Unavailable Emir, Yusuf Consulting Unavailable Thoams Paulino Consulting Unavailable Ronnie, Sprakers Consulting Unavailable Michel Haq Consulting Unavailable Haider Smith Consulting Unavailable [place], Lisseth Primary Care Unavailable Henley, Jeremiah Referring Unavailable Kale, Jeremiah Attending Unavailable Jose R Phillips Attending Unavailable Care Physician, No Primary Primary Care Unava ilable Jh, Lisseth Primary Care Unavailable Michel Haq Attending Unavailable Haider Smith Attending Unavailable Koram, Denisse Makenzie Attending Unavailable Koram, Denisse Makenzie Consulting Unavailable Radha Dumont Attending Unavailable Care Physician, No Primary Primary Care Unava ilable Care Physician, No Primary Referring Unava ilable Jay Davies Attending Unavailable Jh, Lisseth Attending Unavailable Care Physician, No Primary Referring Unava ilable [place], Lisseth Primary Care Unavailable Jay Davies Attending Unavailable [place], Lisseth Referring Unavailable [place], Lisseth Primary Care Unavailable Jh, Lisseth Referring Unavailable Sonia Quarles Attending Unavailable Jh, Lisseth Primary Care Unavailable Jh, Lisseth Attending Unavailable [place], Lisseth Referring Unavailable Jh, Lisseth Primary Care Unavailable GodmanHannah Referring Unavailable GodmanHannah Attending Unavailable Jh, Lisseth Primary Care Unavailable Jh, Lisseth Attending Unavailable [place], Lisseth Referring Unavailable Jh, Lisseth Primary Care Unavailable Jh, Lisseth Referring Unavailable Sonia Quarles Attending Unavailable [place], Lisseth Primary Care Unavailable [place], Lisseth Attending Unavailable [place], Lisseth Referring Unavailable [place], Lisseth Primary Care Unavailable [place], Lisseth Primary Care Unavailable Shawanda Keane [facility], No Primary Referring Unava ilable Jh, Lisseth Primary Care Unavailable Ronnie, Sprakers Attending Unavailable [place], Lisseth Referring Unavailable Jh, Lisseth Primary Care Unavailable Ronnie, Jean Attending Unavailable Radha Dumont Attending Unavailable Jh, Lisseth Primary Care Unavailable Jh, Lisseth Primary Care Unavailable Jh, Lisseth Referring Unavailable Pinky Beth Attending Unavailable Care Physician, No Primary Referring Unava ilable Koki Wilson Attending Unavailable Care Physician, No Primary Primary Care Unava ilable Jh, Lisseth Primary Care Unavailable Ronnie, Sprakers Attending Unavailable Ronnie, Sprakers Attending Unavailable Care Physician, No Primary Primary Care Unava ilable Jh, Lisseth Primary Care Unavailable Mariah Brewer Attending Unavailable Mariah Brewer Admitting Unavailable Mariah Brewer Consulting Unavailable Ronnie, Jean Attending Unavailable Care Physician, No Primary Referring Unava ilable Care Physician, No Primary Primary Care Unava ilable Ronnie, Sprakers Referring Unavailable Ronnie, Sprakers Attending Unavailable Care Physician, No Primary Primary Care Unava ilable Jh, Lisseth Primary Care Unavailable Michel Haq Attending Unavailable Allergies Allergy Classification Reported Allergen(s) Allergy Type Date of Onset Reaction(s) Facility HMG-CoA Reductase Inhibitors (statins) (2 sources) Simvastatin Drug Allergy [address] [facility] Latex (2 sources) Latex Substance Allergy [address] [facility] metFORMIN (2 sources) metFORMIN Drug Allergy [address] [facility] (20 sources) natural latex rubber; Translations: [LATEX] allergy to substance 1 Pruritic rash [facility] Work Phone: (20 sources) simvastatin; Translations: [SIMVASTATIN] Drug Allergy 3 Other (See Comments), Skin irritation, Other: See Comments [facility] Work Phone: (20 sources) Adhesive Tape; Translations: [ADHESIVE TAPE (ROSINS)] Propensity to adverse reactions (disorder) 6 Itching [facility] Repository (20 sources) Latex Propensity to adverse reactions to drug 0 [facility] (20 sources) metFORMIN; Translations: [METFORMIN] Drug Allergy 9 Itching, Tachyarrhythmi a, Other: See Comments [facility] Comment on above: arrythmia caused arrhythmia is sues (15 sources) Lovastatin Drug Allergy Sly Nix D.P.M. Work Phone: Comment on above: itching (15 sources) Seasonal allergy Adverse Reaction Sly Nix D.P.M. Work Phone: (3 sources) Adhesive agent; Translations: [adhesive] Allergy to substance 2 redness [facility] Repository (1 source) Latex Drug allergy (disorder) 2 [facility] (2 sources) metFORMIN Drug Allergy 2 [facility] (20 sources) Latex; Translations: [LATEX, NATURAL RUBBER] Drug Allergy 9 Rash [facility] (20 sources) Seasonal allergy; Translations: [SEASONAL ALLERGIES] Allergy to substance 3 Itching [facility] (10 sources) natural latex rubber Allergy to substance 4 Rash [facility] (10 sources) Adhesive Tape; Translations: [adhesive tape] Propensity to adverse reactions 5 [facility] (1 source) natural latex rubber Drug allergy (disorder) 5 [facility] Repository Medications Current Medications Medication Drug Class(es) Dates Sig (Normalized) Sig (Original) acetylcyst/kczhdjK53/lev omefol (METAFOLBIC PLUS ORAL) (20 sources) acetylcyst/methy lB12/le vomefol (METAFOLBIC PLUS ORAL) Take by mouth. Active acetylcyst/methy lB12/levomefol (METAFOLBIC PLUS ORAL) Take by mouth. 0 Active Comment on above: Take by mouth. 200 actuat albuterol 0.09 mg/actuat metered dose inhaler (20 sources) beta2-Adrenergic Agonist Start: 03-25-2019 albuterol 108 (90 Base) MCG/ACT inhaler Start: 02-24-2019 End: 01-22-2023 take 2 puff(s) by inhalation every four hours as needed albuterol HFA (VENTOLIN HFA) 90 mcg/actuation inhaler Inhale 2 Puffs as instructed every 4 hours as needed. 1 Inhaler 2 02/24/2019 01/22/2023 Discontinued Start: 09-30-2013 End: 08-12-2017 Start: 09-30-2013 End: 08-12-2017 Albuterol Sulfate 1 INHALER inhaler Discontinued 2 NMA INHALATION EVERY 4 HOURS NEEDED as needed for Shortness Of Breath September 30, 2013 12:00am August 12, 2017 2:17pm Start: 09-30-2013 End: 08-12-2017 take 1 puff(s) by inhalation every four hours as needed Albuterol Sulfate Discontinued 2 PUFF INHALATION EVERY 4 HOURS NEEDED September 30, 2013 12:00am August 12, 2017 2:17pm Start: 05-06-2013 End: 06-11-2017 ALBUTEROL SULFATE NEBU 90 Mc g/inh as needed ALBUTEROL SULFATE NEBU [id number] Lissette Banerjee NP End: 10-13-2021 take 2 puff(s) by inhalation every six hours as needed for wheezing albuterol 90 mcg/actuation inhaler Inhale 2 puffs every 6 (six) hours as needed for wheezing . 0 10/13/2021 Discontinued (Discontinued by another clinician) Comment on above: Inhale 2 Puffs as in structed every 4 hours as needed. albuterol 108 (90 Base) MCG/ACT inhaler (3 sources) Start: 019 albuterol 108 (90 Base) MCG/ACT inhaler albuterol 90 mcg/actuation inhaler (13 sources) take 2 puff(s) by inhalation every six hours as needed for wheezing albuterol 90 mcg/actuation inhaler Inhale 2 puffs every 6 (six) hours as needed for wheezing . 0 Active amoxicillin 500 mg oral capsule (1 source) Penicillin-class Antibacterial Start: 022 take 1 capsule by mouth every eight hours amoxicillin 500 MG capsule Indications: Acute non-recurrent maxillary sinusitis Take 1 capsule by mouth every 8 hours. 30 capsule 0 09/06/2021 Active Blood Pressure KIT (2 sources) Start: 021 Blood Pressure KIT Indications: Benign essential HTN As directed 1 each 0 09/08/2020 Active Blood-Glucose Meter (Onetouch Verio Reflect Meter) misc (1 source) Start: 025 Blood-Glucose Meter (Onetouch Verio Reflect Meter) misc Active 0 .Route 1 October 15, 2024 12:00am As directed Blood-Glucose Meter,Continuous (Freestyle Lance 3 [place]) misc (1 source) Start: 025 Blood-Glucose Meter,Continuous (Freestyle Lance 3 [place]) misc Active 0 .Route 1 October 15, 2024 12:00am As directed Blood-Glucose Sensor (Freestyle Lance 3 Plus Sensor) device (1 source) Start: 025 Blood-Glucose Sensor (Freestyle Lance 3 Plus Sensor) device Active 0 .Route 2 October 15, 2024 12:00am 1 sensor q 15 celecoxib 200 mg oral capsule (2 sources) Nonsteroidal Anti-inflammatory Drug Start: 022 cholecalciferol 1.25 mg oral capsule (20 sources) Vitamin D Start: 024 End: 025 Start: 08-07-2019 End: 09-01-2019 take 1 tablet by mouth every week Cholecalciferol (Vitamin D3) (Vitamin D) 1,000 UNIT Tablet Discontinued 1000 UNIT PO Weekly August 07, 2019 1:00am September 01, 2019 10:15am Start: 05-05-2013 End: 11-26-2013 take 1 tablet by mouth once daily VITAMIN D3 5000 UNIT CAPS One tablet by mouth daily CHOLECALCIFEROL [id number] Jean Trujillo MD Cpap (15 sources) Start: 11-22-2020 docusate sodium 100 mg oral capsule (20 sources) Start: 05-06-2024 Start: 04-03-2023 take 1 capsule by mo uth twice daily as needed Docusate Sodium (STOOL SOFTENER) 100 mg tab Take 1 capsule by mouth twice daily as needed 60 tablet 1 04/03/2023 Active Start: 08-24-2020 End: 10-13-2021 take 1 capsule by mouth twice daily Stool Softener 100 mg capsule TAKE ONE CAPSULE BY MOUTH TWICE DAILY 30 capsule 2 03/14/2021 10/13/2021 Discontinued (Discontinued by another clinician) Start: 06-27-2020 take 1 capsule by mo uth twice daily DOK 100 mg capsule TAKE ONE CAPSULE BY MOUTH TWICE DAILY 30 capsule 2 06/27/2020 Active Start: 05-03-2020 take 1 capsule by mo uth twice daily DOK 100 mg capsule TAKE ONE CAPSULE BY MOUTH TWICE DAILY 30 capsule 2 05/03/2020 Active Start: 04-05-2020 End: 04-15-2020 take 1 capsule by mouth twice daily docusate sodium (COLACE) 100 MG capsule Take 1 (one) capsule (100 mg total) by mouth 2 (two) times a day for 10 days . 30 capsule 2 04/05/2020 04/15/2020 Active Docusate Sodium (STOOL SOFTENER) 100 mg tab Take by mouth. 0 Active Comment on above: Take by mouth. Take 1 capsule by mo uth twice daily as needed Dulaglutide (20 sources) GLP-1 Receptor Agonist Start: 12-10-2024 Start: 10-15-2024 End: 12-10-2024 Start: 09-07-2024 End: 10-15-2024 Start: 09-07-2024 End: 10-15-2024 Dulaglutide (Trulicity) 0.75 mg/0.5 mL pen injector Discontinued 0.75 mg SC EVERY WEEK 2 September 07, 2024 1:00am October 15, 2024 10:58am Start: 02-25-2024 inject 1.5 mg by sub cutaneous injection every week dulaglutide (TRULICITY) 1.5 mg/0.5 mL pen injector Indications: Type 2 diabetes mellitus with diabetic neuropathy, with long-term current use of insulin (HCC) Inject 1.5 mg subcutaneously one time a week. 4 Each 02/25/2024 Active Ergocalciferol (Vitamin D2) (Vitamin D2) 50,000 UNIT Capsule (2 sources) Start: 09-01-2019 Ergocalciferol (Vitamin D2) (Vitamin D2) 50,000 UNIT Capsule Active 44485 UNIT PO September 01, 2019 1:00am Flash Glucose Scanning Reade r (1 source) Start: 08-04-2018 Flash Glucose Scanning [place] Active 0 ( .Route .MEDSUPPLY August 04, 2018 6:37pm use to moniter Bg via sensor Flash Glucose Sensor (1 source) Start: 08-04-2018 Flash Glucose Sensor Active 0 ( .Route .MEDSUPPLY August 04, 2018 6:37pm apply to back of arm to moniter BG. change q 10 days flash glucose sensor (FREEST YLE LANCE 2 SENSOR) kit (20 sources) Start: 05-20-2023 flash glucose sensor (FREESTYLE LANCE 2 SENSOR) kit Indications: Type 2 diabetes mellitus with diabetic neuropathy, with long-term current use of insulin (HCC) Use to check blood sugar before meals and at bedtime 4 Each 05/20/2023 Active Start: 03-01-2023 flash glucose sensor (FREESTYLE LANCE 2 SENSOR) kit Indications: Type 2 diabetes mellitus with diabetic neuropathy, with long-term current use of insulin (HCC) Use to check blood sugar before meals and at bedtime 4 Each 03/01/2023 Active Start: 01-22-2023 End: 03-01-2023 flash glucose sensor (FREEST YLE LANCE 2 SENSOR) kit Indications: Type 2 diabetes mellitus with diabetic neuropathy, with long-term current use of insulin (HCC) Use to check blood sugar before meals and at bedtime 4 Each 01/22/2023 03/01/2023 Discontinued Start: 01-22-2023 flash glucose sensor (FREESTYLE LANCE 2 SENSOR) kit Indications: Type 2 diabetes mellitus with diabetic neuropathy, with long-term current use of insulin (HCC) Use to check blood sugar before meals and at bedtime 4 Each 01/22/2023 Active Comment on above: Use to check blood s ugar before meals and at bedtime 3 ml insulin lispro 100 unt/ml pen injector (20 sources) Insulin Analog Start: 10-19-2024 Insulin Lispro 100 unit/mL insulin pen Active 30 U SC THREE TIMES A DAY October 19, 2024 10:22am 10 u w/ snacks Start: 10-15-2024 End: 10-19-2024 Start: 10-15-2024 End: 10-19-2024 Insulin Lispro 200 unit/mL ( 3 mL) insulin pen Discontinued 50 U SC THREE TIMES A DAY 22.5 October 15, 2024 12:00am October 19, 2024 10:23am Start: 05-29-2024 End: 10-19-2024 Insulin Lispro 100 unit/mL i nsulin pen Discontinued 20 U SC THREE TIMES A DAY September 07, 2024 12:33pm October 19, 2024 10:23am Start: 05-06-2024 End: 05-29-2024 Insulin Lispro 100 unit/mL i nsulin pen Discontinued 15 U SC 3 TIMES DAILY WITH MEALS May 06, 2024 10:20am May 29, 2024 2:49pm Start: 01-12-2024 End: 05-06-2024 Insulin Lispro 100 unit/mL i nsulin pen Discontinued 20 U SC 3 TIMES DAILY WITH MEALS January 12, 2024 12:00am May 06, 2024 10:23am Start: 12-24-2023 End: 10-19-2024 Start: 11-29-2023 End: 12-24-2023 insulin lispro (HUMALOG KWIK PEN) 100 unit/mL Indications: Type 2 diabetes mellitus with diabetic neuropathy, with long-term current use of insulin ([facility]) INJECT 18 UNITS SUBCUTANEOUSLY THREE TIMES A DAY BEFORE MEALS 15 mL 11/29/2023 12/24/2023 Discontinued Start: 11-14-2023 End: 11-29-2023 insulin lispro (HUMALOG KWIK PEN) 100 unit/mL Indications: Type 2 diabetes mellitus with diabetic neuropathy, with long-term current use of insulin (HCC) INJECT 15 UNITS SUBCUTANEOUSLY THREE TIMES A DAY BEFORE MEALS 15 mL 11/14/2023 11/29/2023 Discontinued Start: 10-30-2023 End: 11-14-2023 insulin lispro (HUMALOG KWIK PEN) 100 unit/mL Indications: Type 2 diabetes mellitus with diabetic neuropathy, with long-term current use of insulin (HCC) INJECT 11 UNITS SUBCUTANEOUSLY THREE TIMES A DAY BEFORE MEALS 15 mL 10 10/30/2023 11/14/2023 Discontinued Start: 04-18-2023 End: 10-30-2023 inject 8 [IU] by subcutaneous injection three times daily before mealtime insulin lispro (HUMALOG KWIKPEN) 100 unit/mL Indications: Type 2 diabetes mellitus with diabetic neuropathy, with long-term current use of insulin (HCC) INJECT 8 UNITS SUBCUTANEOUSLY THREE TIMES A DAY BEFORE MEALS 15 mL 10 08/30/2023 10/30/2023 Discontinued Start: 01-22-2023 End: 03-19-2023 inject 8 [IU] by subcutaneous injection three times daily before mealtime insulin lispro (ADMELOG SOLOSTAR U-100 INSULIN) 100 unit/mL Indications: Type 2 diabetes mellitus with diabetic neuropathy, with long-term current use of insulin (HCC) Inject 8 Units subcutaneously three times daily before meals. 18 mL 1 03/01/2023 03/19/2023 Discontinued Start: 09-01-2019 End: 05-02-2022 Insulin Lispro (Admelog Solo star (Box Of 5 Pens)) 100 UNIT/ML Insuln.Pen Discontinued 30 UNIT SUBCUT Daily in AM May 29, 2021 1:00am May 02, 2022 10:50am Also sliding scale for Breakfast. Uses sliding scale only with Lunch and Dinner. Start: 04-22-2019 End: 08-03-2019 ADMELOG 100 UNIT/ML injectio n (vial) Indications: Type 2 diabetes mellitus without complication, without long-term current use of insulin (HCC) If glucose is between 150-200 give 2 units, between 201-250 give 4 units, between 251-300, give 6 units, between 301-350 give 8 units. 15 mL 3 08/03/2019 Active Start: 03-05-2019 End: 01-22-2023 insulin lispro (ADMELOG SOLO STAR U-100 INSULIN) 100 unit/mL inpn Inject 26 Units subcutaneously three times daily before meals. 0 03/05/2019 01/22/2023 Discontinued Start: 03-11-2018 End: 10-15-2024 Start: 03-11-2018 End: 10-15-2024 Insulin Lispro (Admelog U-10 0 Insulin Lispro) 100 unit/mL solution Discontinued 0 SC THREE TIMES A DAY 3 March 11, 2018 8:53am May 06, 2018 3:51pm inject 1 unit for every 50 blood glucose points above 200 up to 10 units qd SC TID Start: 02-03-2018 End: 03-11-2018 Start: 02-03-2018 End: 03-11-2018 Insulin Lispro (Admelog Solo star U-) 100 unit/mL insulin pen Discontinued 0 .ROUTE .COMPLEX February 10, 2018 12:00am March 11, 2018 8:24am Inject 1 unit for every 50 blood glucose points above 200 up to 10 units daily Comment on above: Inject 26 Units subc utaneously three times daily before meals. Inject 8 Units subcu taneously three times daily before meals. INJECT 8 UNITS SUBCU TANEOUSLY THREE TIMES A DAY BEFORE MEALS INJECT 11 UNITS SUBC UTANEOUSLY THREE TIMES A DAY BEFORE MEALS insulin lispro 100 unit/mL InPn (5 sources) insulin lispro 1 00 unit/mL InPn Inject under the skin . 0 Active Metafolbic Plus (12 sources) Start: metroNIDAZOLE 500 mg oral tablet (1 source) Nitroimidazole Antimicrobial Start: End: take 4 tablets by mouth once metroNIDAZOLE (FLAGYL) 500 MG tablet Indications: Trichomonal vaginitis Take 4 tablets by mouth one time for 1 dose. 4 tablet 0 08/04/2019 08/04/2019 Active ONE TOUCH ULTRA TEST (13 sources) Start: ONE TOUCH ULTRA TEST TEST BLOOD SUGAR ONE TO THREE TIMES A DAY 400 strip 3 05/11/2019 Active perflutren lipid microspheres 1.3 mL in NaCl (PF) 0.9% 10 mL injection (DEFINITY) (7 sources) Start: 023 End: perflutren lipid microspheres 1.3 mL in NaCl (PF) 0.9% 10 mL injection (DEFINITY) Polyethylene Glycols (13 sources) Polyethylene Gly col 3350 (MIRALAX PO) Take by mouth. 0 Active Potassium Chloride (Klor-Con M20) 20 MEQ Tab.Er.Prt (1 source) Start: 10-19-2 022 take 1 tablet by mouth once daily Potassium Chloride (Klor-Con M20) 20 MEQ Tab.Er.Prt Active 20 MEQ PO Daily May 02, 2022 12:00am pramipexole dihydrochloride 0.75 mg oral tablet (20 sources) Nonergot Dopamine Agonist Start: End: take 1 tablet by mouth once daily at bedtime Pramipexole 0.75 mg tablet Indications: Restless leg syndrome Take 1 tablet by mouth daily at bedtime. 90 tablet 1 02/13/2024 Active Start: 03-14-2023 take 1 tablet by jeffry th once daily at bedtime Pramipexole 0.75 mg tablet Indications: Restless leg syndrome Take 1 tablet by mouth daily at bedtime. 90 tablet 1 03/14/2023 Active Start: 03-02-2023 End: 03-12-2023 take 1 tablet by mouth once daily at bedtime Pramipexole 0.75 mg tablet Indications: Restless leg syndrome Take 1 tablet by mouth daily at bedtime. 30 tablet 0 03/02/2023 03/12/2023 Discontinued Start: 01-22-2023 End: 03-02-2023 take 1.3333 tablets by mouth once daily at bedtime Pramipexole 0.75 mg tablet Indications: Restless leg syndrome Take 1.3333 tablets by mouth daily at bedtime. 0 01/22/2023 03/02/2023 Discontinued Start: 05-29-2021 take 0.75 mg by mout h at bedtime Pramipexole Di-Hcl (Mirapex) 1 MG Tablet Active 0.75 MG PO Bedtime May 29, 2021 1:00am Start: 05-29-2021 take 1 tablet by jeffry th once daily Pramipexole (MIRAPEX) 1 MG tablet Indications: RLS (restless legs syndrome) TAKE 1 TABLET BY MOUTH NIGHTLY DO NOT CONSUME ALCOHOL WITH THIS MEDICATION 30 tablet 6 11/20/2021 Active Start: 08-07-2019 End: 05-29-2021 take 1 tablet by mouth at bedtime Pramipexole Di-Hcl (Pramipexole Er) 0.75 MG Tab.Er.24h Discontinued 0.75 MG PO Bedtime August 07, 2019 1:00am May 29, 2021 10:22am Start: 01-30-2019 End: 01-22-2023 take 1 tablet by mouth once daily at bedtime Pramipexole 0.75 mg tablet Indications: Restless leg syndrome Take 1 tablet by mouth daily at bedtime. 30 tablet 5 01/30/2019 01/22/2023 Discontinued (Adjust Sig - Block E-Cancel) Start: 08-12-2017 End: 05-29-2024 Start: 08-12-2017 End: 05-29-2024 take 3 tablets by mouth at bedtime Pramipexole (Mirapex) 0.25 mg tablet Discontinued 0.75 mg PO AT BEDTIME August 12, 2017 1:00am May 29, 2024 3:40pm Start: 03-16-2014 take 1 tablet by jeffry th once daily MIRAPEX 0.25 MG TABS One tablet by mouth daily PRAMIPEXOLE DIHYDROCHLORIDE [id number] TAWANDA NurC Comment on above: Take 1 tablet by jeffry th daily at bedtime. Take 1.3333 tablets by mouth daily at bedtime. pregabalin 75 mg oral capsule (18 sources) Start: 10-09-2021 take 1 capsule by mouth twice daily pregabalin (LYRICA) 75 MG capsule Take 1 (one) capsule (75 mg total) by mouth 2 (two) times a day . 0 03/27/2022 Active rOPINIRole 0.5 mg oral tablet (20 sources) Nonergot Dopamine Agonist Start: 09-07-2024 End: 11-19-2024 Start: 09-07-2024 End: 11-19-2024 take 1 tablet by mouth at bedtime Ropinirole 0.5 mg tablet Active 0.5 mg PO AT BEDTIME November 19, 2024 9:06am administer 1-3 hours before bedtime Start: 05-29-2024 End: 09-07-2024 Start: 05-29-2024 End: 09-07-2024 take 1 tablet by mouth at bedtime Ropinirole 0.25 mg tablet Discontinued 0.25 mg PO AT BEDTIME July 16, 2024 6:06pm September 07, 2024 12:50pm administer 1-3 hours before bedtime Start: 04-18-2013 End: 08-12-2017 Start: 04-18-2013 End: 08-12-2017 take 1 tablet by mouth at bedtime Ropinirole 0.5 MG tablet Discontinued 0.5 mg PO AT BEDTIME April 18, 2013 12:00am August 12, 2017 3:38pm semaglutide (OZEMPIC) 0.25 mg or 0.5 mg (2 mg/3 mL) pen (18 sources) Start: 04-25-2023 inject 0.5 mg by subcutaneous injection every week semaglutide (OZEMPIC) 0.25 mg or 0.5 mg (2 mg/3 mL) pen Indications: Type 2 diabetes mellitus with diabetic neuropathy, with long-term current use of insulin (HCC) Inject 0.5 mg subcutaneously one time a week. 12 mL 2 04/25/2023 Active Start: 04-03-2023 End: 05-01-2023 semaglutide (OZEMPIC) 0.25 m g or 0.5 mg (2 mg/3 mL) pen Indications: Type 2 diabetes mellitus with diabetic neuropathy, with long-term current use of insulin (HCC) Inject 0.25 mg subcutaneously one time a week for 28 days. 3 mL 0 04/03/2023 05/01/2023 Start: 04-03-2023 End: 05-01-2023 semaglutide (OZEMPIC) 0.25 m g or 0.5 mg (2 mg/3 mL) pen Indications: Type 2 diabetes mellitus with diabetic neuropathy, with long-term current use of insulin (HCC) Inject 0.25 mg subcutaneously one time a week for 28 days. 3 mL 0 04/03/2023 05/01/2023 Active Start: 03-15-2023 End: 04-25-2023 inject 0.25 mg by subcutaneous injection every week, then inject 0.5 mg by subcutaneous injection every week semaglutide (OZEMPIC) 0.25 mg or 0.5 mg (2 mg/3 mL) pen Indications: Type 2 diabetes mellitus with diabetic neuropathy, with long-term current use of insulin (HCC) Inject 0.25 mg subcutaneously one time a week for 28 days, THEN 0.5 mg one time a week for 14 days. 3 mL 0 03/15/2023 04/25/2023 Active Comment on above: Inject 0.25 mg subcu taneously one time a week for 28 days, THEN 0.5 mg one time a week for 14 days. Inject 0.5 mg subcut aneously one time a week. Inject 0.25 mg subcu taneously one time a week for 28 days. 125 ml sodium chloride 9 mg/ml prefilled syringe (20 sources) Start: 01-29-2023 End: 04-29-2024 sodium chloride 0.9 % (flush) 10 mL (BD POSIFLUSH) spironolactone 25 mg oral tablet (20 sources) Aldosterone Antagonist Start: 11-04-2024 Start: 02-16-2014 End: 05-06-2024 Comment on above: Take 1 tablet by jeffry th once daily. torsemide (7 sources) Loop Diuretic Start: 05-02-2022 take 1 tablet by mouth twice daily Torsemide (Soaanz) 40 MG Tablet Active 40 MG PO Twice Daily May 02, 2022 12:00am Start: 04-09-2022 End: 04-09-2023 take 1 tablet by mouth twice daily torsemide (SOAANZ) 40 mg Tab Take 1 (one) tablet (40 mg total) by mouth 2 (two) times a day . 60 tablet 04/09/2022 04/09/2023 Active urea 400 mg/ml topical cream (12 sources) Start: 11-17-2020 Vancomycin (8 sources) Glycopeptide Antibacterial Start: 11-25-2024 (20 sources) Start: 10-15-2024 Start: 09-07-2024 End: 10-15-2024 Start: 08-06-2024 End: 10-15-2024 Start: 08-05-2024 End: 08-06-2024 Start: 06-29-2024 End: 10-15-2024 Start: 06-15-2024 End: 06-29-2024 Start: 05-29-2024 End: 06-30-2024 Start: 05-29-2024 Start: 05-29-2024 End: 10-15-2024 Start: 05-29-2024 Start: 05-29-2024 End: 05-29-2024 Start: 03-26-2024 End: 05-06-2024 Start: 08-19-2018 End: 05-29-2024 Start: 08-18-2018 End: 05-29-2024 Start: 08-18-2018 End: 08-19-2018 Start: 08-18-2018 End: 08-18-2018 Start: 08-18-2018 End: 08-18-2018 Start: 08-04-2018 End: 10-15-2024 Start: 08-04-2018 End: 10-15-2024 Start: 08-04-2018 End: 05-29-2024 Start: 08-04-2018 End: 09-07-2024 Start: 07-22-2018 End: 08-18-2018 Start: 07-22-2018 End: 07-22-2018 Start: 05-28-2018 End: 08-04-2018 Start: 05-12-2018 End: 05-26-2018 Start: 05-12-2018 End: 05-26-2018 Start: 05-06-2018 End: 05-12-2018 Start: 03-24-2018 End: 05-29-2024 Start: 03-24-2018 End: 05-29-2024 Start: 03-24-2018 End: 08-18-2018 Start: 03-11-2018 End: 07-22-2018 Start: 03-11-2018 End: 03-11-2018 Start: 08-12-2017 End: 10-07-2017 Completed/Discontinued Medications Medication Drug Class(es) Dates Sig (Normalized) Sig (Original) acetaminophen 300 mg / codeine phosphate 30 mg oral tablet (2 sources) Opioid Agonist Start: 09-04-2019 End: 12-16-2020 take 1 tablet by mouth every six hours Acetaminophen With Codeine (Tylenol #3) 1 EACH Tablet Discontinued 1 EACH PO Q6H 15 5 September 04, 2019 1:00am December 16, 2020 11:42am acetaminophen 325 mg / oxyCODONE hydrochloride 5 mg oral tablet (2 sources) Opioid Agonist Start: 06-05-2021 End: 08-10-2021 take 1 tablet by mouth every four hours Oxycodone Hcl/Acetaminophen (Percocet 5-325 Mg Tablet) 1 EACH Tablet Discontinued 1 EACH PO Q4H 38 7 June 05, 2021 1:00am August 10, 2021 1:46pm Albuterol Sulfate (Albuterol Sulfate Hfa) 8.5 GM Hfa.Aer.Ad (2 sources) Start: 09-01-2019 End: 12-16-2020 Albuterol Sulfate (Albuterol Sulfate Hfa) 8.5 GM Hfa.Aer.Ad Discontinued 2 INH IH Administer As Needed September 01, 2019 1:00am December 16, 2020 11:42am alogliptin 25 mg oral tablet (20 sources) Start: 03-26-2024 End: 05-06-2024 Start: 08-12-2017 End: 03-15-2023 Comment on above: Take 1 tablet by jeffry th once daily. aspirin 81 mg delayed releas e oral tablet (20 sources) Nonsteroidal Anti-inflammatory Drug Start: 08-05-2024 End: 11-04-2024 Start: 05-05-2013 take 1 tablet by jeffry once daily ASPIRIN 81 MG TABS One tablet by mouth daily ASPIRIN [id number] Josephine Aburto Eugene LEGER Start: 04-18-2013 End: 05-06-2024 Comment on above: Take 1 tablet by jeffry once daily. atorvastatin 10 mg oral tablet (20 sources) HMG-CoA Reductase Inhibitor Start: 5 End: 5 Comment on above: Take 1 tablet by jeffry once daily. baclofen 10 mg oral tablet (9 sources) gamma-Aminobutyric Acid-ergic Agonist Start: 1 End: 2 take 1 tablet by mouth at bedtime Baclofen (Lioresal) 10 MG Tablet Discontinued 10 MG PO Bedtime May 29, 2021 1:00am May 02, 2022 10:51am bisacodyl 10 mg rectal suppository (2 sources) Stimulant Laxative Start: 3 End: 4 BISACODYL 10 MG SUPP 1 suppository rectally as needed BISACODYL [id number] Jean Trujillo MD Blood-Glucose Meter (FREESTYLE SYSTEM KIT) monitoring kit (13 sources) Start: 7 Blood-Glucose Meter (FREESTYLE SYSTEM KIT) monitoring kit Indications: Type 2 diabetes mellitus without complication, unspecified half-way insulin use status 1 Each as needed. 1 Each 0 07/19/2016 Active Comment on above: 1 Each as needed. Blood-Glucose Meter (ONETOUCH ULTRA2) monitoring kit (13 sources) Blood-Glucose Me ter (ONETOUCH ULTRA2) monitoring kit 1 Each as needed. 0 Active Comment on above: 1 Each as needed. carvedilol 12.5 mg oral tablet (20 sources) alpha-Adrenergic Awilda, beta-Adrenergic Awilda Start: End: Start: 06-18-2013 End: 04-07-2024 take 1 tablet by mouth twice daily carvedilol (COREG) 25 mg tablet Indications: Coronary artery disease involving [place] heart without angina pectoris, unspecified vessel or lesion type Take 1 tablet by mouth two times a day. 60 tablet 04/08/2024 Active Start: 06-01-2013 End: 05-29-2024 Start: 06-01-2013 End: 05-29-2024 Start: 06-01-2013 End: 08-12-2017 take 1 tablet by mouth twice daily Carvedilol 12.5 MG tablet Discontinued 12.5 mg PO TWICE A DAY 180 June 01, 2013 1:00am August 12, 2017 2:20pm Start: 05-05-2013 take 1 tablet by jeffry th twice daily COREG 6.25 MG TABS One tablet by mouth twice daily CARVEDILOL [id number] Jean Trujillo MD Comment on above: Take 1 tablet by jeffry th twice daily. cefadroxil 500 mg oral capsu le (5 sources) Cephalosporin Antibacterial Start: 06-15-2021 End: 09-17-2021 cetirizine hydrochloride 10 mg oral capsule (20 sources) Histamine-1 Receptor Antagonist Start: 05-16-2018 End: 10-22-2024 Start: 05-13-2018 End: 03-15-2023 take 1 tablet by mouth once daily as needed cetirizine (ZYRTEC) 10 mg tablet Take 1 tablet by mouth once daily as needed (for itching, sneezing or runny nose). 30 tablet 11 03/15/2023 Active Comment on above: Take 1 tablet by jeffry th once daily as needed (for itching, sneezing or runny nose). cider vinegar 300 mg oral tablet (2 sources) Start: 12-17-19 End: 05-29-20 take 1 tablet by mouth twice daily Cider Vinegar (Apple Cider Vinegar) 300 MG Tablet Discontinued 300 MG PO Twice Daily December 16, 2020 12:00am May 29, 2021 9:11am dexamethasone 1 mg oral tablet (18 sources) Corticosteroid Start: 08-05-19 End: 10-20-19 Start: 08-05-2024 End: 10-19-2024 take 1 tablet by mouth once Dexamethasone 1 mg tablet Discontinued 1 mg PO ONCE 1 August 05, 2024 1:00am October 19, 2024 10:23am take around 11pm on day prior to labs Start: 06-15-2018 End: 03-16-2023 dexamethasone sodium phospha te (DECADRON) 4 mg/mL injection Indications: Bursitis of right foot , Bursitis of left foot , Uncontrolled type 2 diabetes mellitus with diabetic neuropathy, without long-term current use of insulin 4 mg as needed (for physical therapy). 40 mL 2 06/15/2018 03/16/2023 Discontinued (Discontinued by Patient) Comment on above: 4 mg as needed (for physical therapy). diphenhydrAMINE hydrochlorid e 25 mg oral capsule (12 sources) Histamine-1 Receptor Antagonist Start: 09-30-2013 End: 08-12-2017 Start: 05-06-2013 End: 03-16-2014 BENADRYL 25 MG TABS PRN 2012 DIPHENHYDRAMINE HCL [id number] Jean Trujillo MD DULoxetine 60 mg delayed release oral capsule (20 sources) Serotonin and Norepinephrine Reuptake Inhibitor Start: 08-02-2023 End: 10-22-2024 Start: 03-29-2023 take 1 capsule by mo [facility] once daily DULoxetine (CYMBALTA) 60 mg capsule Indications: Type 2 diabetes mellitus with diabetic neuropathy, with long-term current use of insulin (HCC) Take 1 capsule by mouth once daily. 90 capsule 1 03/29/2023 Active Comment on above: Take 1 capsule by mo ut once daily. Take 1 capsule by mo ut two times a day. empagliflozin 10 mg oral tab let (10 sources) Sodium-Glucose Cotransporter 2 Inhibitor Start: 07-30-2018 End: 05-06-2024 enalapril maleate 2.5 mg ora l tablet (20 sources) Angiotensin Converting Enzyme Inhibitor Start: 03-26-2024 End: 05-06-2024 Start: 09-01-2019 End: 05-29-2021 take 2.5 mg by mouth once daily Enalapril Maleate (Vas otec) 5 MG Tablet Discontinued 2.5 MG PO Daily September 01, 2019 1:00am May 29, 2021 9:11am Start: 08-21-2019 End: 12-15-2019 take 1 tablet by mouth twice daily enalapril (VASOTEC) 2.5 MG tablet Take 1 (one) tablet (2.5 mg total) by mouth 2 (two) times a day . 180 tablet 3 08/21/2019 12/15/2019 Discontinued (Therapy completed) Start: 07-29-2018 End: 03-29-2023 take 1 tablet by mouth once daily enalapril (VASOTEC) 2.5 mg tablet Indications: Coronary artery disease involving [place] heart without angina pectoris, unspecified vessel or lesion type Take 1 tablet by mouth once daily. 90 tablet 3 03/02/2023 03/29/2023 Discontinued Start: 05-06-2013 take 1 tablet by jeffry th once daily VASOTEC 2.5 MG TABS One tablet by mouth daily ENALAPRIL MALEATE [id number] Jean Trujillo MD Start: 05-05-2013 take 0.5 tablet by m outh once daily VASOTEC 2.5 MG TABS 1/2 tablet by mouth daily ENALAPRIL MALEATE [id number] Josephine Knight RN Start: 04-24-2013 End: 11-07-2017 take 1.25 mg by mouth once daily Enalapril Maleate 5 MG tablet Discontinued 1.25 mg PO DAILY April 24, 2013 12:00am November 07, 2017 9:23pm Start: 04-24-2013 End: 11-07-2017 take 1.25 mg by mouth once daily Enalapril Maleate Discontinued 1.25 MG PO DAILY April 24, 2013 12:00am November 07, 2017 9:23pm Start: 04-18-2013 End: 11-07-2017 Start: 04-18-2013 End: 04-24-2013 take 1 tablet by mouth once daily Enalapril Maleate 5 MG tablet Discontinued 5 mg PO DAILY April 18, 2013 12:00am April 24, 2013 12:01pm Comment on above: Take [address] [facility] once daily. enalapril maleate 10 mg / hydroCHLOROthiazide 25 mg oral tablet (2 sources) Thiazide Diuretic, Angiotensin Converting Enzyme Inhibitor Start: 08-07-2019 End: 09-01-2019 Enalapril/Hydrochlorot hiazide (Enalapril-Hctz 10-25 Mg Tablet) 1 EACH Tablet Discontinued 1 EACH PO Daily August 07, 2019 1:00am September 01, 2019 10:15am ergocalciferol 1.25 mg oral capsule (20 sources) Provitamin D2 Compound Start: 08-02-2023 End: 05-29-2024 Start: 04-03-2023 take 1 capsule by [facility] every week ergocalciferol 50,000 unit capsule (VITAMIN D2, DRISDOL) Take 1 capsule by mouth one time a week. 12 capsule 3 04/03/2023 Active Start: 06-01-2019 Vitamin D, Erg ocalciferol, 1.25 MG (84722 UT) CAPS Indications: Vitamin D deficiency Take 1 capsule by mouth every 7 days. 12 capsule 1 06/01/2019 Active Start: 09-11-2018 End: 04-09-2022 take 1 capsule by mouth every week ergocalciferol, vitamin D2, (DRISDOL) 50,000 unit capsule Take 1 capsule by mouth once each week. 12 capsule 3 09/11/2018 Active ergocalciferol ( Vitamin D2) 1,250 mcg (50,000 unit) capsule Take 50,000 Units by mouth once a week . 0 Active Comment on above: Take 1 capsule by [facility] once each week. Take 1 capsule by [facility] one time a week. ferrous sulfate 325 mg oral tablet (2 sources) Start: 3 End: 3 take 1 tablet by mouth once daily FERROUS SULFATE 325 (65 Fe) MG TABS One tablet by mouth daily FERROUS SULFATE [id number] Shawanda Keane PA-C fexofenadine hydrochloride 180 mg oral tablet (20 sources) Histamine-1 Receptor Antagonist Start: 9 End: 4 Comment on above: Take 1 tablet by jeffry th once daily. Flash Glucose Scanning [place] (Freestyle Lance 10 Day [place]) [facility] (6 sources) Start: 8 End: 9 Flash Glucose Scanning [place] (Freestyle Lance 10 Day [place]) [facility] [place] Discontinued 0 .ROUTE .MEDSUPPLY May 28, 2018 1:00am August 04, 2018 6:38pm use to moniter Bg via sensor Start: 05-12-2018 End: 05-26-2018 Flash Glucose Scanning Reade r (Freestyle Lance 10 Day [place]) [facility] [place] Discontinued 0 .ROUTE .MEDSUPPLY May 12, 2018 3:50pm May 26, 2018 11:49am use as directed to moniter BG Start: 05-06-2018 End: 05-12-2018 Flash Glucose Scanning Reade r (Freestyle Lance 10 Day [place]) [facility] [place] Discontinued 0 .ROUTE .MEDSUPPLY May 06, 2018 12:00am May 12, 2018 3:50pm use as directed to moniter BG flash glucose scanning reade r (FREESTYLE LANEC 14 DAY READER) [facility] [place] (4 sources) Start: 12-25-2018 End: 01-22-2023 flash glucose scanning reade r (FREESTYLE LANCE 14 DAY READER) [facility] [place] Use reader to check blood glucose (scan at least every 8 hours) 1 Each 0 12/25/2018 01/22/2023 Discontinued Start: 11-17-2018 End: 01-22-2023 flash glucose scanning reade r (FREESTYLE LANCE 14 DAY READER) [facility] [place] Indications: Uncontrolled type 2 diabetes mellitus with diabetic neuropathy, without long-term current use of insulin Use for blood sugar four times a day. 1 Each 0 11/17/2018 01/22/2023 Discontinued Comment on above: Use for blood sugar four times a day. Use reader to check blood glucose (scan at least every 8 hours) Flash Glucose Scanning [place] (Freestyle Lance 14 Day [place]) [facility] [place] (3 sources) Start: 09-07-2024 End: 10-15-2024 Flash Glucose Scanning [place] (Freestyle Lance 14 Day [place]) [facility] [place] Discontinued 0 .ROUTE .MEDSUPPLY September 07, 2024 12:39pm October 15, 2024 10:56am As directed to monitor glucose levels with sensors Start: 08-04-2018 End: 09-07-2024 Flash Glucose Scanning Re[place] r (Freestyle Lance 14 Day [place]) misc Discontinued 0 .ROUTE .MEDSUPPLY August 04, 2018 1:00am September 07, 2024 12:39pm As directed to monitor glucose levels with sensors Start: 08-04-2018 Flash Glucose Scanning [place] (Freestyle Lance 14 Day [place]) misc Active 0 .ROUTE .MEDSUPPLY August 04, 2018 1:00am As directed to monitor glucose levels with sensors flash glucose scanning reader (FREESTYLE LANCE 2 READER) (12 sources) Start: 01-22-2023 flash glucose scanning reader (FREESTYLE LANCE 2 READER) Indications: Type 2 diabetes mellitus with diabetic neuropathy, with long-term current use of insulin (HCC) Use to check glucose before meals and at bedtime. 1 Each 0 01/22/2023 Active Comment on above: Use to check glucose before meals and at bedtime. Flash Glucose Scanning [place] 1 EACH misc (1 source) Start: 08-04-2018 End: 10-15-2024 Flash Glucose Scanning [place] 1 EACH misc Discontinued 0 ( .Route .MEDSUPPLY August 04, 2018 6:37pm October 15, 2024 10:56am use to moniter Bg via sensor Flash Glucose Sensor (Freestyle Lance 10 Day Sensor) kit (6 sources) Start: 05-28-2018 End: 08-04-2018 Flash Glucose Sensor (Freestyle Lance 10 Day Sensor) kit Discontinued 0 .ROUTE .MEDSUPPLY May 28, 2018 1:00am August 04, 2018 6:38pm apply to back of arm to moniter BG. change q 10 days Start: 05-12-2018 End: 05-26-2018 Flash Glucose Sensor (Freest yle Lance 10 Day Sensor) kit Discontinued 0 .ROUTE .MEDSUPPLY May 12, 2018 3:50pm May 26, 2018 11:49am apply to back of arm to moniter BG. change q 10 days Start: 05-06-2018 End: 05-12-2018 Flash Glucose Sensor (Freest yle Lance 10 Day Sensor) kit Discontinued 0 .ROUTE .MEDSUPPLY May 06, 2018 12:00am May 12, 2018 3:50pm apply to back of arm to moniter BG. change q 10 days flash glucose sensor (FREEST YLE LANCE 14 DAY SENSOR) kit (4 sources) Start: 12-25-2018 End: 01-22-2023 flash glucose sensor (FREEST YLE LANCE 14 DAY SENSOR) kit Indications: Uncontrolled type 2 diabetes mellitus with diabetic neuropathy, without long-term current use of insulin One sensor every 14 days 2 Kit 11 12/25/2018 01/22/2023 Discontinued Start: 07-22-2018 End: 01-22-2023 flash glucose sensor (FREEST YLE LANCE 14 DAY SENSOR) kit Change sensor every 14 days 6 Kit 3 07/22/2018 01/22/2023 Discontinued Comment on above: Change sensor every 14 days One sensor every 14 days Flash Glucose Sensor (Freestyle Lance 14 Day Sensor) kit (3 sources) Start: 05-29-2024 End: 10-15-2024 Flash Glucose Sensor (Freestyle Lance 14 Day Sensor) kit Discontinued 0 .ROUTE .MEDSUPPLY May 29, 2024 3:29pm October 15, 2024 10:56am As directed to monitor glucose levels change x14 days Start: 08-04-2018 End: 05-29-2024 Flash Glucose Sensor (Freest yle Lance 14 Day Sensor) kit Discontinued 0 .ROUTE .MEDSUPPLY August 04, 2018 1:00am May 29, 2024 3:43pm As directed to monitor glucose levels change x14 days Start: 08-04-2018 Flash Glucose Sensor (Freestyle Lance 14 Day Sensor) kit Active 0 .ROUTE .MEDSUPPLY August 04, 2018 1:00am As directed to monitor glucose levels change x14 days Flash Glucose Sensor (Freest yle Lance 2 Sensor) kit (2 sources) Start: 06-29-2024 End: 10-15-2024 Flash Glucose Sensor (Freest yle Lance 2 Sensor) kit Discontinued 0 .Route June 29, 2024 1:00pm October 15, 2024 10:56am As directed Start: 06-15-2024 End: 06-29-2024 Flash Glucose Sensor (Freest yle Lance 2 Sensor) kit Discontinued 0 .Route June 15, 2024 1:00am June 29, 2024 1:01pm As directed Flash Glucose Sensor 1 EACH kit (1 source) Start: 08-04-2018 End: 10-15-2024 Flash Glucose Sensor 1 EACH kit Discontinued 0 ( .Route .MEDSUPPLY August 04, 2018 6:37pm October 15, 2024 10:56am apply to back of arm to moniter BG. change q 10 days fluconazole 200 mg oral tablet (9 sources) Azole Antifungal Start: 10-15-2024 End: 10-19-2024 fluticasone propionate 0.05 mg/actuat metered dose nasal spray (20 sources) Corticosteroid Start: 10-06-2019 End: 01-22-2023 take 2 spray(s) nasal route once daily fluticasone (FLONASE) 50 mcg/actuation nasal spray Indications: Nonallergic rhinitis USE 2 SPRAYS IN EACH NOSTRIL DAILY 3 Bottle 0 10/06/2019 01/22/2023 Discontinued Start: 08-07-2019 End: 12-16-2020 Fluticasone Propionate (Flon ase) 120 SPRAY/16 GM Naspr Discontinued 1 SPRAY KARINE Twice Daily August 07, 2019 1:00am December 16, 2020 11:39am Start: 03-25-2019 Fluticasone pr opionate (FLONASE) 50 MCG/ACT nasal spray Start: 03-16-2014 End: 06-11-2017 FLUTICASONE PROPIONATE 50 MC G/ACT SUSP (0.05mg/inh) 1 spray each nostril once a day as needed FLUTICASONE PROPIONATE [id number] Lissette Banerjee NP End: 10-13-2021 take 2 spray(s) nasal route once daily fluticasone propionate (FLONASE) 50 mcg/actuation nasal spray Instill 2 sprays into each nostril daily . 0 10/13/2021 Discontinued (Discontinued by another clinician) Comment on above: USE 2 SPRAYS IN EACH NOSTRIL DAILY furosemide 40 mg oral tablet (20 sources) Loop Diuretic Start: 11-17-2019 End: 12-15-2019 take 1 tablet by mouth once daily furosemide (LASIX) 20 MG tablet Take 1 (one) tablet (20 mg total) by mouth daily . 30 tablet 0 11/17/2019 12/15/2019 Discontinued (Reorder) Start: 04-24-2013 End: 05-06-2024 Start: 04-24-2013 End: 10-13-2021 take 40 mg by mouth twice daily Furosemide Active 40 M G PO TWICE A DAY April 21, 2021 2:59pm Start: 04-24-2013 End: 05-06-2024 take 1 tablet by mouth once daily Furosemide 40 MG tablet Discontinued 40 mg PO DAILY April 21, 2021 2:59pm May 06, 2024 1:45pm Comment on above: Take 1 tablet by jeffry once daily. gabapentin 300 mg oral capsu le (20 sources) Anti-epileptic Agent Start: 05-06-2024 End: 12-01-2024 Start: 03-15-2023 End: 03-06-2024 take 1 capsule by mouth once daily at bedtime gabapentin (NEURONTIN) 300 mg capsule Indications: Type 2 diabetes mellitus with diabetic neuropathy, with long-term current use of insulin (HCC) Take 1 capsule by mouth daily at bedtime for 270 days. 90 capsule 2 06/10/2023 Active Start: 12-16-2020 End: 05-02-2022 take 1 capsule by mouth twice daily Gabapentin (Neurontin) 300 MG Capsule Discontinued 300 MG PO Twice Daily December 16, 2020 12:00am May 02, 2022 10:50am Start: 11-17-2020 take 1 capsule by mo [facility] once daily, then take 1 capsule by mouth twice daily gabapentin (NEURONTIN) 300 MG capsule TAKE ONE CAPSULE BY MOUTH EVERY NIGHT FOR 10 DAYS THEN 1 CAPSULE TWICE A DAY 0 11/17/2020 Active End: 03-15-2023 take 1 capsule by mouth three times daily gabapentin (NEURONTIN) 300 mg capsule Take 300 mg by mouth three times daily. 0 03/15/2023 Discontinued Comment on above: Take 1 capsule by mo ut daily at bedtime for 90 days. Take 300 mg by mouth three times daily. Take 1 capsule by mo ut daily at bedtime for 270 days. glipiZIDE 10 mg oral tablet (12 sources) Sulfonylurea Start: 04-18-2013 End: 08-12-2017 Start: 04-18-2013 End: 08-12-2017 take 2 tablets by mouth twice daily before mealtime Glipizide 10 MG tablet Discontinued 20 mg PO TWICE DAILY BEFORE MEALS April 18, 2013 12:00am August 12, 2017 2:19pm Start: 04-18-2013 End: 08-12-2017 take 20 mg by mouth twice daily before mealtime Glipizide Discontinued 20 MG PO TWICE DAILY BEFORE MEALS April 18, 2013 12:00am August 12, 2017 2:19pm GLUCOSE BLOOD (1 source) FREESTYLE LITE T EST STRP Use to check blood glucose 1-3 times daily. GLUCOSE BLOOD [id number] Lissette Banerjee [employer] glyBURIDE 5 mg oral tablet (20 sources) Sulfonylurea Start: 11-18-2023 End: 10-15-2024 Start: 08-30-2023 End: 11-15-2023 take 2 tablets by mouth once daily at breakfast glyBURIDE 5 mg tablet Indications: Type 2 diabetes mellitus with diabetic neuropathy, with long-term current use of insulin (HCC) Take 2 tablets by mouth daily with breakfast. 90 tablet 1 08/30/2023 11/15/2023 Discontinued Start: 05-29-2021 End: 08-30-2023 take 1 tablet by mouth once daily at breakfast glyBURIDE 5 mg tablet Indications: Type 2 diabetes mellitus with diabetic neuropathy, with long-term current use of insulin (HCC) Take 1 tablet by mouth daily with breakfast. 90 tablet 1 03/15/2023 08/30/2023 Discontinued (Adjust Sig - Block E-Cancel) Comment on above: Take 1 tablet by jeffry th daily with breakfast. Take 5 mg by mouth. Take 2 tablets by mo uth daily with breakfast. hydrOXYzine hydrochloride 25 mg oral tablet (20 sources) Antihistamine Start: 05-29-20 take 1 capsule by mouth once daily Hydroxyzine Pamoate (Vistaril) 25 MG Capsule Active 25 MG PO Daily May 29, 2021 1:00am Start: 09-01-2020 End: 08-14-2022 take 1 tablet by mouth once daily hydrOXYzine (ATARAX) 25 MG tablet Take 25 mg by mouth daily . 0 10/05/2020 Active 3 ml insulin degludec 200 unt/ml pen injector (1 source) Insulin Analog Start: 09-13-2023 End: 09-13-2023 insulin degludec (TRESIBA FLEXTOUCH U-200) 200 unit/mL (3 mL) injection Indications: Type 2 diabetes mellitus with diabetic neuropathy, with long-term current use of insulin (HCC) Inject 90 Units subcutaneously daily at bedtime. 30 mL 1 09/13/2023 09/13/2023 Discontinued Comment on above: Inject 90 Units subc utaneously daily at bedtime. 3 ml insulin glargine 100 unt/ml pen injector (20 sources) Insulin Analogue Start: 10-19-2024 End: 10-21-2024 Insulin Glargine (Lantus Solostar U-100 Insulin) 100 unit/mL (3 mL) insulin pen Active 40 U SC TWICE A DAY October 21, 2024 12:30pm Start: 07-09-2024 End: 10-19-2024 Insulin Glargine (Lantus Mi ostar U-100 Insulin) 100 unit/mL (3 mL) insulin pen Discontinued 90 U SC EVERY MORNING September 01, 2024 10:49am October 19, 2024 10:23am Start: 09-12-2023 End: 11-14-2023 insulin glargine U-300 conc (TOUJEO MAX U-300 SOLOSTAR) 300 unit/mL (3 mL) inpn Indications: Type 2 diabetes mellitus with diabetic neuropathy, with long-term current use of insulin (HCC) Inject 90 Units subcutaneously every morning. 30 mL 2 11/14/2023 Active Start: 03-29-2023 End: 04-28-2023 insulin glargine (BASAGLAR K WIKPEN U-100 INSULIN) 100 unit/mL (3 mL) Indications: Type 2 diabetes mellitus with diabetic neuropathy, with long-term current use of insulin (HCC) Inject 45 Units subcutaneously twice daily. 12 mL 1 03/29/2023 Active Start: 03-01-2023 End: 04-25-2023 insulin glargine (BASAGLAR K WIKPEN U-100 INSULIN) 100 unit/mL (3 mL) Indications: Type 2 diabetes mellitus with diabetic neuropathy, with long-term current use of insulin (HCC) Inject 40 Units subcutaneously twice daily. 12 mL 1 03/26/2023 03/29/2023 Discontinued (Adjust Sig - Block E-Cancel) Start: 10-24-2021 insulin glargi ne (LANTUS) 100 UNIT/ML injection Indications: Type 2 diabetes mellitus without complication, with long-term current use of insulin ([facility]) Inject 64 Units into the skin daily. Do not take this if your glucose is less than 150. 50 mL 3 10/24/2021 Active Start: 08-16-2021 insulin glargi ne (LANTUS) 100 UNIT/ML injection Indications: Type 2 diabetes mellitus without complication, with long-term current use of insulin ([facility]) Inject 64 Units into the skin daily. Do not take this if your glucose is less than 150. 50 mL 3 08/16/2021 Active Start: 04-21-2021 End: 07-09-2024 Insulin Glargine (Lantus Mi ostar U-100 Insulin) 100 unit/mL (3 mL) insulin pen Discontinued 90 U SC WITH BREAKFAST June 18, 2024 3:17pm July 09, 2024 5:25pm Start: 04-21-2021 Insulin Glargi ne (Lantus Solostar U-100 Insulin) 100 unit/mL (3 mL) insulin pen Active 60 UNIT SC WITH BREAKFAST April 21, 2021 12:00am Start: 12-16-2020 inject 70 [IU] by calzada bcutaneous injection once daily in the morning Lantus (Lantus Vial) 100 UNIT/ML Vial Active 70 UNIT SUBCUT Daily in AM December 16, 2020 12:00am Start: 12-16-2020 inject 60 [IU] by calzada bcutaneous injection once daily in the morning Lantus (Lantus Vial) 100 UNIT/ML Vial Active 60 UNIT SUBCUT Daily in AM December 16, 2020 12:00am Start: 04-22-2019 End: 08-03-2019 BASAGLAR KWIKPEN 100 UNIT/ML pen Indications: Type 2 diabetes mellitus without complication, without long-term current use of insulin ([facility]) Inject 70 Units into the skin daily. 5 Adjustable Dose Pre-filled Pen Syringe 3 04/22/2019 08/03/2019 Discontinued Start: 02-24-2019 End: 03-01-2023 insulin glargine (BASAGLAR K EMILEEKPEN U-100 INSULIN) 100 unit/mL (3 mL) inpn Inject 70 Units subcutaneously every evening. 7 Pen 2 02/24/2019 03/01/2023 Discontinued Start: 05-16-2018 End: 01-12-2024 Insulin Glargine 100 UNIT/ML insulin pen Discontinued 50 U SC 1700 May 16, 2018 1:05pm January 12, 2024 12:05am Titrating dose up. Start: 05-06-2018 End: 05-16-2018 Insulin Glargine (Basaglar K wikpen U-100 Insulin) 100 unit/mL (3 mL) insulin pen Discontinued 56 U SC DAILY May 06, 2018 3:49pm May 16, 2018 1:05pm Titrating dose up. Start: 03-24-2018 End: 05-06-2018 Insulin Glargine (Basaglar K wikpen U-100 Insulin) 100 unit/mL (3 mL) insulin pen Discontinued 44 U SC DAILY March 24, 2018 11:30am May 06, 2018 3:51pm Titrating dose up. Start: 01-02-2018 End: 03-24-2018 Insulin Glargine (Basaglar K wikpen U-100 Insulin) 100 unit/mL (3 mL) insulin pen Discontinued 35 U SC DAILY January 02, 2018 10:49am March 24, 2018 11:33am Start: 02-05-2017 End: 10-21-2024 Start: 02-05-2017 End: 01-12-2024 inject 70 [IU] by subcutaneous injection once daily, then inject 100 [IU] by subcutaneous injection BASAGLAR KWIKPEN 100 UNIT/ML pen Indications: Type 2 diabetes mellitus without complication, without long-term current use of insulin (HCC) INJECT 70 UNITS SUBCUTANEOUSLY DAILY 15 mL 1 08/11/2019 Active Start: 02-05-2017 End: 01-12-2024 Insulin Glargine,Hum.Rec.Anl og (Basaglar Kwikpen U-100 (Box Of 5 Pens)) 100 UNIT/ML Insuln.Pen Discontinued 70 UNIT SQ Daily August 07, 2019 1:00am December 16, 2020 11:40am Start: 02-05-2017 End: 08-12-2017 inject 21 [IU] by subcutaneous injection once daily Insulin Glargine 100 UNIT/ML insulin pen Discontinued 21 U SQ DAILY February 05, 2017 12:00am August 12, 2017 2:19pm Start: 09-04-2016 End: 12-02-2024 Insulin Glargine 100 UNIT/ML insulin pen Discontinued 21 U SC DAILY November 07, 2017 9:23pm January 02, 2018 10:49am Comment on above: Inject 70 Units subcutaneously every cristina carter. Inject 40 Units subc utaneously twice daily. Inject 45 Units subc utaneously twice daily. Inject 45 Units subc utaneously two times a day. Inject 90 Units subc utaneously every morning. insulin lispro (HUMALOG KWIKPEN) 100 unit/mL (14 sources) Start: 04-18-20 inject 8 [IU] by subcutaneous injection three times daily before mealtime insulin lispro (HUMALOG KWIKPEN) 100 unit/mL Indications: Type 2 diabetes mellitus with diabetic neuropathy, with long-term current use of insulin (HCC) INJECT 8 UNITS SUBCUTANEOUSLY THREE TIMES A DAY BEFORE MEALS 15 mL 04/18/2023 Active Start: 04-11-2023 inject 8 [IU] by sub cutaneous injection three times daily before mealtime insulin lispro (HUMALOG KWIKPEN) 100 unit/mL Indications: Type 2 diabetes mellitus with diabetic neuropathy, with long-term current use of insulin (HCC) INJECT 8 UNITS SUBCUTANEOUSLY THREE TIMES A DAY BEFORE MEALS 15 mL 04/11/2023 Active Start: 03-19-2023 End: 04-11-2023 inject 8 [IU] by subcutaneous injection three times daily before mealtime insulin lispro (HUMALOG KWIKPEN) 100 unit/mL Indications: Type 2 diabetes mellitus with diabetic neuropathy, with long-term current use of insulin (HCC) INJECT 8 UNITS SUBCUTANEOUSLY THREE TIMES A DAY BEFORE MEALS 15 mL 03/19/2023 04/11/2023 Discontinued Start: 03-19-2023 inject 8 [IU] by sub cutaneous injection three times daily before mealtime insulin lispro (HUMALOG KWIKPEN) 100 unit/mL Indications: Type 2 diabetes mellitus with diabetic neuropathy, with long-term current use of insulin (HCC) INJECT 8 UNITS SUBCUTANEOUSLY THREE TIMES A DAY BEFORE MEALS 15 mL 03/19/2023 Active Comment on above: INJECT 8 UNITS SUBCU TANEOUSLY THREE TIMES A DAY BEFORE MEALS INSULIN PEN NEEDLE (1 source) Start: 7 PEN NEEDLES 16 31G X 8 MM INSULIN PEN NEEDLE [id number] Lissette Banerjee NP Insulin Syringe-Needle U-100 (INSULIN SYRINGE) 1/2 mL 30 x 5/16 syrg (13 sources) Start: 5 Insulin Syringe-Needle U-100 (INSULIN SYRINGE) 1/2 mL 30 x 16 syrg Use 1 syringe for each dose 1/day 100 Syringe 11 07/06/2015 Active Comment on above: Use 1 syringe for ea ch dose 1/day linagliptin 5 mg oral tablet (2 sources) Dipeptidyl Peptidase 4 Inhibitor Start: 4 End: 7 take 1 tablet by mouth once daily TRADJENTA 5 MG TABS One tablet by mouth daily LINAGLIPTIN [id number] Shawanda Keane PA-C 3 ml liraglutide 6 mg/ml pen injector (20 sources) GLP-1 Receptor Agonist Start: End: Start: 05-06-2024 End: 05-29-2024 Start: 05-06-2024 End: 05-29-2024 Liraglutide (Victoza 3-Raf) 0.6 mg/0.1 mL (18 mg/3 mL) pen injector Discontinued 1.8 mg SC daily May 06, 2024 12:00am May 29, 2024 2:49pm Start: 12-27-2023 inject 1.2 mg by sub cutaneous injection once daily liraglutide (VICTOZA) 0.6 mg/ 0.1 ml subcutaneous pen injector Indications: Type 2 diabetes mellitus with diabetic neuropathy, with long-term current use of insulin (HCC) Inject 1.2 mg subcutaneously once daily. 3 mL 1 02/13/2024 Active Start: 08-30-2023 End: 12-27-2023 inject 1.8 mg by subcutaneous injection once daily liraglutide (VICTOZA) 0.6 mg/ 0.1 ml subcutaneous pen injector Indications: Type 2 diabetes mellitus with diabetic neuropathy, with long-term current use of insulin (HCC) Inject 1.8 mg subcutaneously once daily. 9 mL 3 11/14/2023 12/27/2023 Discontinued Start: 06-26-2023 End: 08-30-2023 inject 1.2 mg by subcutaneous injection once daily liraglutide (VICTOZA) 0.6 mg/ 0.1 ml subcutaneous pen injector Indications: Type 2 diabetes mellitus with diabetic neuropathy, with long-term current use of insulin (HCC) Inject 1.2 mg subcutaneously once daily. 3 mL 3 06/26/2023 08/30/2023 Discontinued (Adjust Sig - Block E-Cancel) Start: 05-20-2023 End: 06-26-2023 inject 0.6 mg by subcutaneous injection once daily liraglutide (VICTOZA) 0.6 mg/ 0.1 ml subcutaneous pen injector Indications: Type 2 diabetes mellitus with diabetic neuropathy, with long-term current use of insulin (HCC) Inject 0.6 mg subcutaneously once daily. 3 mL 3 05/20/2023 06/26/2023 Discontinued (Adjust Sig - Block E-Cancel) Comment on above: Inject 0.6 mg subcut aneously once daily. Inject 1.2 mg subcut aneously once daily. Inject 1.8 mg subcut aneously once daily. Liraglutide (Victoza 3-Raf) 0.6 mg/0.1 mL (18 mg/3 mL) pen injector (3 sources) Start: 08-06-2024 End: 10-15-2024 Liraglutide (Victoza 3-Raf) 0.6 mg/0.1 mL (18 mg/3 mL) pen injector Discontinued 1.8 mg SC DAILY August 06, 2024 5:12pm October 15, 2024 10:14am On Hold: Order Changed Start: 05-29-2024 End: 06-30-2024 Liraglutide (Victoza 3-Raf) 0.6 mg/0.1 mL (18 mg/3 mL) pen injector Discontinued 1.2 mg SC daily May 29, 2024 3:36pm June 30, 2024 5:33pm Start: 05-29-2024 End: 05-29-2024 Liraglutide (Victoza 3-Raf) 0.6 mg/0.1 mL (18 mg/3 mL) pen injector Discontinued 1.2 mg SC daily May 29, 2024 2:45pm May 29, 2024 3:43pm loratadine 10 mg oral tablet (1 source) Start: 03-16-2014 take 1 tablet by mouth once daily LORATADINE 10 MG TABS One tablet by mouth daily LORATADINE [id number] Shawanda Keane PA-C LORazepam 0.5 mg oral tablet (2 sources) Benzodiazepine Start: 05-05-2013 End: 06-18-2013 take 1 tablet by mouth twice daily as needed ATIVAN 0.5 MG TABS One tablet by mouth twice daily as needed LORAZEPAM [id number] Shawanda Keane PA-C losartan potassium 25 mg oral tablet (20 sources) Angiotensin 2 Receptor Awilda Start: 05-02-2022 End: 03-15-2023 take 1 tablet by mouth once daily losartan (COZAAR) 25 mg tablet Take 1 tablet by mouth once daily. 90 tablet 1 03/15/2023 Active Start: 05-02-2022 Losartan Potas sium (Cozaar) 25 MG Tablet Active 12.5 MG PO Daily May 02, 2022 12:00am Start: 05-16-2021 take 1 tablet by jeffry th once daily losartan (COZAAR) 25 MG tablet Indications: Benign essential HTN Take 1 tablet by mouth daily. Do not take if your blood pressure is less than 100/60. 90 tablet 1 10/24/2021 Active Start: 12-15-2019 End: 10-13-2022 take 0.5 tablet by mouth once daily losartan (COZAAR) 25 MG tablet Take 0.5 (one-half) tablet (12.5 mg total) by mouth daily . 45 tablet 3 10/13/2021 10/13/2022 Active Comment on above: Take 1 tablet by jeffry th once daily. Take 25 mg by mouth once daily. magnesium oxide 400 mg oral tablet (20 sources) Start: 06-01-2013 End: 10-22-2024 Start: 06-01-2013 End: 10-22-2024 Comment on above: Take 1 tablet by jeffry th twice daily. Take 1 tablet by jeffry th two times a day. meloxicam 7.5 mg oral tablet (2 sources) Nonsteroidal Anti-inflammatory Drug Start: 1 End: 2 take 7.5 mg by mouth twice daily Meloxicam Discontinued 7.5 MG PO Twice Daily 60 June 05, 2021 1:00am May 02, 2022 10:49am Metafolbic Plus 600-2-6 mg Tab (7 sources) Start: 1 End: 2 Metafolbic Plus 600-2-6 mg Tab Start: 09-19-2020 Metafolbic Plu s 600-2-6 mg Tab metFORMIN hydrochloride 500 mg oral tablet (20 sources) Biguanide Start: 08-21-2013 End: 10-28-2017 Start: 08-21-2013 METFORMIN HCL 500 MG TABS 2 at breakfast, 1 at lunch, 2 at supper METFORMIN HCL [id number] Jean Trujillo MD Start: 05-05-2013 take 1 tablet by jeffry th three times daily METFORMIN HCL 500 MG TABS One tablet by mouth three times daily METFORMIN HCL [id number] Josephine Knight RN Start: 04-18-2013 End: 08-12-2017 Start: 04-18-2013 End: 08-12-2017 take 1000 mg by mouth twice daily Metformin Discontinued 1000 MG PO TWICE A DAY April 18, 2013 12:00am August 12, 2017 3:37pm 24 hr mirabegron 50 mg extended release oral tablet (14 sources) beta3-Adrenergic Agonist Start: 03-26-2024 End: 05-06-2024 take 1 tablet by mouth once daily Mirabegron (Myrbetriq) 50 mg tablet extended release 24 hr Discontinued 50 mg PO daily March 26, 2024 12:00am May 06, 2024 10:23am Start: 11-12-2018 End: 03-29-2023 take 1 tablet by mouth once daily mirabegron (MYRBETRIQ) 50 mg Tb24 Take 1 tablet by mouth once daily. 30 tablet 5 11/12/2018 03/29/2023 Discontinued Comment on above: Take 1 tablet by jeffry th once daily. 24 hr oxybutynin chloride 15 mg extended release oral tablet (20 sources) Cholinergic Muscarinic Antagonist Start: 8 End: take 1 tablet by mouth once daily oxybutynin ER (DITROPAN XL) 15 mg 24 hr Extended Rel Tab Take 1 tablet by mouth once daily. 100 tablet 0 03/15/2023 09/12/2023 Discontinued (Other) Start: 08-12-2017 End: 01-12-2024 Start: 08-12-2017 take 15 mg by mouth once daily Oxybutynin Chloride Active 15 MG PO DAILY August 12, 2017 1:00am OXYBUTYNIN CHLOR SHIRA 5 MG TABS tid OXYBUTYNIN CHLORIDE [id number] Lissette Banerjee NP Comment on above: Take 1 tablet by jeffry th once daily. Take 15 mg by mouth once daily. pantoprazole 40 mg delayed release oral tablet (20 sources) Proton Pump Inhibitor Start: 05-29-2024 End: 11-19-2024 Start: 11-18-2023 take 1 tablet by jeffry th every twelve hours pantop[address] (PROTONIX) 40 mg tablet Indications: GERD without esophagitis Take 1 tablet by mouth every 12 hours. 180 tablet 1 11/18/2023 Active Start: 09-26-2023 End: 11-15-2023 take 1 tablet by mouth every twelve [address]op[address] (PROTONIX) 40 mg tablet Indications: GERD without esophagitis Take 1 tablet by mouth every 12 hours. 60 tablet 0 10/22/2023 11/15/2023 Discontinued Start: 06-01-2019 take 1 tablet by jeffry th once daily Pantoprazole Sodium (Protonix) [address] Table[address] Active 40 MG PO Daily August 07, 2019 1:00am Start: 08-12-2017 End: 05-26-2024 PANTOPRAZOLE SOD IUM 40 MG TBEC bid PANTOPRAZOLE SODIUM [id number] Lissette Banerjee NP Comment on above: TAKE 1 TABLET BY JEFFRY TH TWICE DAILY Take 1 tablet by jeffry th twice daily. take 1 tablet by jeffry th twice a day Take 1 tablet by jeffry th every 12 hours. polyethylene glycol 3350 72105 mg powder for oral solution (20 sources) Osmotic Laxative Start: 02-02-2020 End: 01-22-2023 polyethylene glycol 3350 (MIRALAX) 17 gram/dose powder Indications: Constipation, unspecified constipation type (ONE SCOOP) IN 8 OZ OF WATER DAILY UNTIL STOOLS ARE REGULAR UP TO TWO(2) WEEKS 510 g 1 02/02/2020 01/22/2023 Discontinued End: 10-13-2021 polyethylene glycol (MIRALAX ) 17 gram powder Take 17 g by mouth daily . 0 10/13/2021 Discontinued (Discontinued by another clinician) Comment on above: (ONE SCOOP) IN 8 OZ OF WATER DAILY UNTIL STOOLS ARE REGULAR UP TO TWO(2) WEEKS Polyethylene Glycol 3350 (Miralax) 17 GM Powd.Pack (2 sources) Start: 0 End: 1 take 17 g by mouth once daily Polyethylene Glycol 3350 (Miralax) 17 GM Powd.Pack Discontinued 1 PKT PO Daily August 07, 2019 1:00am May 29, 2021 9:10am microencapsulated potassium chloride 20 meq extended release oral tablet (20 sources) Start: 4 End: 4 Start: 08-16-2021 End: 08-23-2023 take 1 tablet by mouth once daily potassium chloride SA (K-DUR,KLOR-CON) 20 MEQ tablet TAKE 1 TABLET BY MOUTH DAILY 30 tablet 10 08/23/2023 Active Start: 04-24-2013 End: 08-12-2017 Comment on above: Take 1 tablet by jeffry th every afternoon. pravastatin sodium 40 mg ora l tablet (10 sources) HMG-CoA Reductase Inhibitor Start: 04-18-2013 End: 04-24-2013 Start: 04-18-2013 End: 04-24-2013 take 1 tablet by mouth at bedtime Pravastatin 40 MG tablet Discontinued 40 mg PO AT BEDTIME April 18, 2013 12:00am April 24, 2013 12:01pm repaglinide 2 mg oral tablet (20 sources) Glinide Start: 08-12-2017 End: 09-09-2018 Start: 11-08-2016 take 1-2 tablets by mouth before mealtime PRANDIN 2 MG TABS Take 1 to 2 tablets by mouth before meals. REPAGLINIDE [id number] Lissette Banerjee NP Start: 03-16-2014 End: 06-11-2017 take 1 tablet by mouth twice daily PRANDIN 1 MG TABS One tablet by mouth twice daily REPAGLINIDE [id number] Lissette Banerjee NP rosuvastatin calcium 5 mg oral tablet (2 sources) HMG-CoA Reductase Inhibitor Start: 11-26-2013 End: 08-03-2014 take 0.5 tablet by mouth once daily CRESTOR 5 MG TABS 1/2 tablet by mouth daily ROSUVASTATIN CALCIUM [id number] Jean Trujillo MD sacubitril 24 mg / valsartan 26 mg oral tablet (20 sources) Angiotensin 2 Receptor Awilda Start: 05-26-2024 End: 06-03-2024 Start: 05-26-2024 End: 06-03-2024 Sacubitril-Valsartan (Entres to) 24-26 mg tablet Active 1 {tbl} PO TWICE A DAY 60 June 03, 2024 11:10am sertraline 100 mg oral table t (20 sources) Serotonin Reuptake Inhibitor Start: 03-26-2024 End: 05-06-2024 Start: 02-23-2019 End: 03-29-2023 take 1 tablet by mouth once daily sertraline (ZOLOFT) 100 mg tablet Take 1 tablet by mouth once daily. 90 tablet 1 03/15/2023 03/29/2023 Discontinued Start: 03-04-2018 End: 01-12-2024 Comment on above: Take 1 tablet by jeffry th once daily. Take 1/2 tab once a day orally for one week then 1 tab once a day Take 1 tablet by jeffry th once daily. simvastatin 10 mg oral tablet (1 source) HMG-CoA Reductase Inhibitor Start: 11-27-19 14 take 1 tablet by mouth once daily SIMVASTATIN 10 MG TABS One tablet by mouth daily SIMVASTATIN [id number] Jean Trujillo MD SITagliptin 100 mg oral tablet (2 sources) Dipeptidyl Peptidase 4 Inhibitor Start: 05-05-20 13 End: 05-06-20 13 take 1 tablet by mouth once daily JANUVIA 100 MG TABS One tablet by mouth daily SITAGLIPTIN PHOSPHATE [id number] Josephine Knight RN sulfamethoxazole 800 mg / trimethoprim 160 mg oral tablet (16 sources) Dihydrofolate Reductase Inhibitor Antibacterial, Sulfonamide Antimicrobial Start: 09-13-19 End: 10-04-19 Start: 08-31-2021 End: 09-12-2021 Tirzepatide (Mounjaro) 2.5 mg/0.5 mL pen injector (1 source) Start: 08-05-2024 End: 08-06-2024 Tirzepatide (Mounjaro) 2.5 mg/0.5 mL pen injector Discontinued 2.5 mg SC EVERY WEEK 2 August 05, 2024 1:00am August 06, 2024 5:10pm for 4 weeks traMADol hydrochloride 50 mg oral tablet (4 sources) Opioid Agonist Start: 08-21-2021 End: 05-02-2022 take 1 tablet by mouth every four hours Tramadol (Ultram) 50 MG Tablet Discontinued 50 MG PO Q4H 38 7 August 21, 2021 1:00am May 02, 2022 10:48am triamcinolone acetonide 0.001 mg/mg topical ointment (20 sources) Corticosteroid Start: 09-22-2020 End: 04-09-2022 triamcinolone (KENALOG) 0.1 % ointment Start: 12-08-2019 triamcinolone (KENALOG) 0.1 % ointment Indications: Other eczema Apply thin layer daily for up to two weeks, do not apply to facial area. 30 g 11 12/08/2019 Active Start: 08-18-2019 triamcinolone (KENALOG) 0.1 % ointment Indications: Other eczema Apply topically two times a day. 30 g 3 08/18/2019 Active Start: 11-19-2017 triamcinolone acetonide (KENALOG) 0.1 % ointment APPLY TO AFFECTED AREA(S) ON LEGS TWICE A DAY NEEDED *USE 2 WEEKS ON, 1 WEEK OFF *NOT FOR FACE, ARMPITS 80 g 0 11/19/2017 Active End: 08-18-2019 triamcinolone (KENALOG) 0.1 % ointment Apply topically two times a day. 0 08/18/2019 Discontinued (Reorder) Comment on above: APPLY TO AFFECTED AR EA(S) ON LEGS TWICE A DAY NEEDED *USE 2 WEEKS ON, 1 WEEK OFF *NOT FOR FACE, ARMPITS vitamin b12 1 mg oral capsule (3 sources) Vitamin B12 Start: 05-29-2021 End: 05-02-2022 Cyanocobalamin (Vitamin B-12) (Vitamin B-12) 1,000 MCG Capsule Discontinued 500 MCG PO Daily May 29, 2021 1:00am May 02, 2022 10:51am Cyanocobalamin ( VITAMIN B-12 PO) Take by mouth. 0 Active Problems Active Problems Problem Classification Problem Date Documented Da te Episodic/Chronic Acquired foot deformities (20 sources) Other hammer toe(s) (acquired), left foot; Translations: [Other hammer toe(s) (acquired), left foot] Chronic Acquired foot deformities (20 sources) Other hammer toe(s) (acquired), right foot; Translations: [Other hammer toe(s) (acquired), right foot] Chronic Adjustment disorders (20 sources) Adjustment disorder; Translations: [Unspecified adjustment reaction] Onset: 1 Chronic Administrative/social admission (7 sources) Food insecurity; Translations: [Food insecurity] Onset: 4 09-12-2023 Episodic Allergic reactions (6 sources) Eczema; Translations: [Dermatitis, unspecified] Episodic Anxiety disorders (20 sources) Anxiety; Translations: [Generalized anxiety disorder] Onset: 7 02-25-2017 Chronic Anxiety disorders (20 sources) Anxiety disorder due to a general medical condition; Translations: [Anxiety disorder due to known physiological condition] 11-17-2018 Episodic Bacterial infection; unspecified site (20 sources) Bacteremia due to Methicillin resistant Staphylococcus aureus; Translations: [Bacteremia] Onset: 5 11-22-2024 Episodic Cardiac dysrhythmias (10 sources) Palpitations; Translations: [Palpitations] 04-29-2021 Episodic Chronic ulcer of skin (2 sources) Non-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; Translations: [Non-pressure chronic ulcer of left heel and midfoot limited to breakdown of skin] Chronic Complication of device; implant or graft (7 sources) Other specified complication of vascular prosthetic devices, implants and grafts, initial encounter; Translations: [Occlusion of peripherally inserted central catheter (PICC) line] 11-27-2024 Chronic Complication of device; implant or graft (1 source) Breakdown (mechanical) of infusion catheter, initial encounter; Translations: [Breakdown (mechanical) of infusion catheter, initial encounter] Onset: 5 Episodic Conduction disorders (20 sources) Left bundle branch block; Translations: [Presence of automatic (implantable) cardiac defibrillator] Onset: 3 05-05-2013 Chronic Comment on above: 03/12/18 replaced w/ Dynagen TENTER FEEDER-D IS-1/DF4/IS-1 Congestive heart failure; nonhypertensive (18 sources) Congestive heart failure; Translations: [Heart failure with reduced ejection fraction] Onset: 3 05-05-2013 Chronic Coronary atherosclerosis and other heart disease (20 sources) Atherosclerotic heart disease of [place] coronary artery without angina pectoris; Translations: [Coronary arteriosclerosis] Onset: 2 03-01-2023 Chronic Developmental disorders (20 sources) Mild intellectual disability; Translations: [Mild intellectual disabilities] Onset: 1 Chronic Diabetes mellitus with complications (20 sources) Type 2 diabetes mellitus with diabetic polyneuropathy; Translations: [Type 2 diabetes mellitus] Onset: 6 03-30-2021 Chronic Diabetes mellitus with complications (3 sources) Diabetes mellitus with complications Diabetes mellitus without complication (20 sources) Diabetes mellitus; Translations: [Type 2 diabetes mellitus without complication] Onset: 3 05-05-2013 Chronic Diabetes mellitus without complication (1 source) Hyperglycemia; Translations: [Hyperglycemia, unspecified] 06-17-2023 Episodic Disorders of lipid metabolism (20 sources) Hyperlipidemia; Translations: [Dyslipidemia] Onset: 5 09-09-2016 Chronic Comment on above: On statin. Toleratin g well. Chol 112, TRI 129, LDL 48, Esophageal disorders (20 sources) Gastroesophageal reflux disease; Translations: [Gastroesophageal reflux disease without esophagitis] Onset: 0 08-21-2019 Chronic Essential hypertension (20 sources) Hypertensive disorder; Translations: [Benign essential hypertension] Onset: 2 05-05-2013 Chronic Fever of unknown origin (19 sources) Fever; Translations: [Fever, unspecified] Onset: 5 11-20-2024 Episodic Genitourinary symptoms and ill-defined conditions (20 sources) Genuine stress incontinence; Translations: [Incontinence] Onset: 9 11-12-2018 Chronic Gout and other crystal arthropathies (17 sources) Idiopathic gout, right ankle and foot; Translations: [Gout] Chronic Headache; including migraine (9 sources) Headache; Translations: [Headache] 03-26-2024 Episodic Hypertension with complications and secondary hypertension (1 source) Hypertensive heart disease with heart failure; Translations: [HYPERTENSIVE HEART DISEASE WITH HEART FAILURE] Onset: 2 Chronic Immunizations and screening for infectious disease (20 sources) Patient encounter status; Translations: [Encounter for screening for human immunodeficiency virus [HIV]] Onset: 3 01-22-2023 Episodic Mood disorders (20 sources) Depressive disorder; Translations: [Major depressive disorder, single episode, unspecified] Onset: 0 08-21-2019 Chronic Mycoses (20 sources) Tinea unguium; Translations: [Candidiasis of vagina] Episodic Nutritional deficiencies (20 sources) Vitamin D deficiency; Translations: [Vitamin D deficiency, unspecified] Onset: 1 08-17-2020 Chronic Open wounds of extremities (2 sources) Unspecified open wound, right foot, initial encounter; Translations: [Unspecified open wound, right foot, initial encounter] Episodic Open wounds of extremities (11 sources) Laceration without foreign body of left elbow, initial encounter; Translations: [Open wound of left great toe] Onset: 2 10-06-2023 Episodic Osteoarthritis (20 sources) Bilateral primary osteoarthritis of knee; Translations: [Arthritis] Chronic Other aftercare (20 sources) terminologist (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 of insulin; Translations: [penitentiary (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 of insulin] Onset: 0 Episodic Other aftercare (20 sources) Encounter for follow-up examination after completed treatment for conditions other than malignant neoplasm; Translations: [Encntr for f/u exam aft trtmt for cond oth than malig neoplm] Episodic Other aftercare (1 source) Encounter for adjustment and management of vascular access device; Translations: [Encounter for adjustment and management of vascular access device] Onset: 5 Episodic Other and ill-defined heart disease (9 sources) Heart disease; Translations: [Heart disease, unspecified] 03-26-2024 Chronic Other bone disease and musculoskeletal deformities (17 sources) Juvenile osteochondrosis of tarsus, left ankle; Translations: [Juvenile osteochondrosis of tarsus, left ankle] Chronic Other bone disease and musculoskeletal deformities (20 sources) Juvenile osteochondrosis of tarsus, right ankle; Translations: [Juvenile osteochondrosis of tarsus, right ankle] Chronic Other bone disease and musculoskeletal deformities (2 sources) Posterior calcaneal exostosis; Translations: [Juvenile osteochondrosis of tarsus, left ankle] Chronic Other bone disease and musculoskeletal deformities (2 sources) Posterior calcaneal exostosis; Translations: [Juvenile osteochondrosis of tarsus, right ankle] Chronic Other connective tissue disease (20 sources) Pain in right foot; Translations: [Pain in right foot] Episodic Other connective tissue disease (20 sources) Pain in left foot; Translations: [Pain in left foot] Episodic Other connective tissue disease (17 sources) Calcaneal spur, left foot; Translations: [Calcaneal spur, left foot] Episodic Other connective tissue disease (17 sources) Achilles tendinitis, left leg; Translations: [Achilles tendinitis, left leg] Episodic Other connective tissue disease (20 sources) Calcaneal spur, right foot; Translations: [Calcaneal spur, right foot] Episodic Other connective tissue disease (20 sources) Achilles tendinitis, right leg; Translations: [Achilles tendinitis, right leg] Episodic Other connective tissue disease (18 sources) Other synovitis and tenosynovitis, right ankle and foot; Translations: [Other synovitis and tenosynovitis, right ankle and foot] Episodic Other connective tissue disease (4 sources) Achilles tendinitis; Translations: [Achilles tendinitis, left leg] Episodic Other connective tissue disease (4 sources) Foot pain; Translations: [Pain in left foot] Episodic Other connective tissue disease (4 sources) Calcaneal spur; Translations: [Calcaneal spur, left foot] Episodic Other diseases of veins and lymphatics (20 sources) Venous insufficiency (chronic) (peripheral); Translations: [Venous insufficiency (chronic) (peripheral)] Episodic Other gastrointestinal disorders (1 source) Chronic constipation; Translations: [Other constipation] 08-30-2023 Episodic Other hereditary and degenerative nervous system conditions (20 sources) Restless legs; Translations: [Restless legs syndrome] Onset: 6 08-17-2020 Chronic Other inflammatory condition of skin (1 source) Intertrigo; Translations: [Erythema intertrigo] 08-30-2023 Episodic Other injuries and conditions due to external causes (2 sources) Injury of upper extremity; Translations: [Unspecified injury of shoulder and upper arm, unspecified arm, initial encounter] Episodic Other injuries and conditions due to external causes (10 sources) Wound hemorrhage; Translations: [Other injury of unspecified body region, initial encounter] 10-06-2023 Episodic Other nervous system disorders (18 sources) Neuropathy; Translations: [Polyneuropathy, unspecified] 10-16-2024 Chronic Other nervous system disorders (20 sources) Other acute postprocedural pain; Translations: [Other acute postprocedural pain] Episodic Other non-traumatic joint disorders (18 sources) Other specific joint derangements of right ankle, not elsewhere classified; Translations: [Oth specific joint derangements of right ankle, NEC] Chronic Other non-traumatic joint disorders (18 sources) Pain in right ankle and joints of right foot; Translations: [Pain in right ankle and joints of right foot] Episodic Other nutritional; endocrine; and metabolic disorders (1 source) Overweight; Translations: [Overweight] Onset: 7 11-27-2016 Chronic Other nutritional; endocrine; and metabolic disorders (20 sources) Obesity; Translations: [Obesity, unspecified] Onset: 9 Resolved: 1 06-01-2019 Chronic Other nutritional; endocrine; and metabolic disorders (20 sources) Body mass index (BMI) 35.0-35.9, adult; Translations: [Body mass index [BMI] 35.0-35.9, adult] Chronic Other nutritional; endocrine; and metabolic disorders (20 sources) Body mass index (BMI) 34.0-34.9, adult; Translations: [Body mass index [BMI] 34.0-34.9, adult] Chronic Other nutritional; endocrine; and metabolic disorders (8 sources) Body mass index (BMI) 36.0-36.9, adult; Translations: [Body mass index [BMI] 36.0-36.9, adult] Chronic Other nutritional; endocrine; and metabolic disorders (1 source) Body mass index (BMI) 37.0-37.9, adult; Translations: [Body mass index [BMI] 37.0-37.9, adult] Chronic Other nutritional; endocrine; and metabolic disorders (20 sources) Obese class II; Translations: [Obesity, unspecified] Onset: 3 01-22-2023 Chronic Other nutritional; endocrine; and metabolic disorders (1 source) Obesity, unspecified; Translations: [Obesity, Class II, BMI 35-39.9] Onset: 3 Chronic Other screening for suspected conditions (not mental disorders or infectious disease) (20 sources) Encounter for screening mammogram for malignant neoplasm of breast; Translations: [Patient encounter status] Onset: 3 01-22-2023 Episodic Other skin disorders (5 sources) Ingrowing nail; Translations: [Ingrowing nail] Episodic Other skin disorders (17 sources) Changes in skin texture; Translations: [Changes in skin texture] Episodic Other skin disorders (4 sources) Keratosis punctata (palmaris et plantaris); Translations: [Keratosis punctata (palmaris et plantaris)] Episodic Other skin disorders (12 sources) Corns and callosities; Translations: [Corns and callosities] Episodic Other skin disorders (4 sources) Xerosis cutis; Translations: [Xerosis cutis] Episodic Other upper respiratory disease (20 sources) Non-allergic rhinitis; Translations: [Chronic rhinitis] Onset: 8 04-03-2018 Chronic Alia-; endo-; and myocarditis; cardiomyopathy (20 sources) Dilated cardiomyopathy; Translations: [Cardiomyopathy] Onset: 3 05-05-2013 Chronic Prolapse of female genital organs (20 sources) Cystocele; Translations: [Uterovaginal prolapse, unspecified] Onset: 9 08-17-2020 Chronic Pulmonary heart disease (11 sources) Pulmonary hypertension; Translations: [Pulmonary hypertension, unspecified] Onset: 3 05-05-2013 Chronic Residual codes; unclassified (20 sources) Obstructive sleep apnea syndrome; Translations: [Obstructive sleep apnea (adult) (pediatric)] Onset: 0 03-30-2021 Chronic Residual codes; unclassified (15 sources) Hypersomnia, unspecified; Translations: [Hypersomnia, unspecified] Onset: 0 03-30-2021 Chronic Residual codes; unclassified (8 sources) Obstructive sleep apnea (adult) (pediatric); Translations: [Obstructive sleep apnea (adult) (pediatric)] Chronic Residual codes; unclassified (8 sources) Dependence on other enabling machines and devices; Translations: [Dependence on other enabling machines and devices] Chronic Residual codes; unclassified (1 source) Sleep apnea, unspecified; Translations: [SLEEP APNEA, UNSPECIFIED] Onset: 2 Chronic Residual codes; unclassified (1 source) Preoperative state; Translations: [Pre-operative clearance] Episodic Residual codes; unclassified (20 sources) Patient's noncompliance with other medical treatment and regimen; Translations: [Patient's noncompliance w oth medical treatment and regimen] Episodic Residual codes; unclassified (20 sources) Family history of cancer of colon; Translations: [Family history of malignant neoplasm of digestive organs] Onset: 1 08-17-2020 Episodic Residual codes; unclassified (10 sources) Peripheral edema; Translations: [Localized edema] 06-23-2018 Episodic Residual codes; unclassified (4 sources) Monitoring status; Translations: [Presence of other specified devices] 10-30-2023 Episodic Septicemia (except in labor) (19 sources) Sepsis; Translations: [Sepsis, unspecified organism] Onset: 5 11-20-2024 Episodic Shock (17 sources) Shock; Translations: [Shock, unspecified] Onset: 5 11-21-2024 Episodic Spondylosis; intervertebral disc disorders; other back problems (18 sources) Low back pain; Translations: [Low back pain] 11-20-2024 Episodic Thyroid disorders (20 sources) Subclinical hyperthyroidism; Translations: [Thyrotoxicosis, unspecified without thyrotoxic crisis or storm] Onset: 7 Chronic Unclassified (1 source) Long-term drug therapy; Translations: [Long-term (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 of other medications] Onset: 5 08-03-2014 Unclassified (1 source) Medication monitoring; Translations: [Encounter for therapeutic drug level monitoring] Onset: 7 06-11-2017 Unclassified (1 source) Pain, unspecified; Translations: [Pain, unspecified] Onset: 7 Unclassified (5 sources) Patient encounter status; Translations: [Well woman exam with routine gynecological exam] Unclassified (1 source) got drywall in r eye Onset: 4 Unclassified (1 source) Food insecurity; Translations: [Food insecurity] Onset: 4 Unclassified (1 source) Z12.11 - Encounter for screening for malignant neoplasm of colon Unclassified (1 source) Z12.4 - Encounter for screening for malignant neoplasm of cervix Unclassified (1 source) Acute candidiasis of vulva and vagina; Translations: [Acute candidiasis of vulva and vagina] Onset: 5 Unclassified (2 sources) Low back pain, unspecified; Translations: [Low back pain, unspecified] Onset: 5 Past or Other Problems Problem Classification Problem Date Documented Date Episodic/Chronic Abdominal pain (2 sources) Indigestion; Translations: [Epigastric pain] Onset: 12-24-2023 12-24-2023 Episodic E Codes: Cut/pierceb (1 source) Contact with other sharp object(s), not elsewhere classified, initial encounter; Translations: [CONTACT WITH OTHER SHARP OBJECT(S), NEC, INITIAL ENCOUNTER] Onset: 04-30-2022 Episodic Genitourinary symptoms and ill-defined conditions (20 sources) Urgent desire to urinate; Translations: [Urgency of urination] Onset: 11-12-2018 11-12-2018 Episodic Malaise and fatigue (15 sources) Malaise and fatigue; Translations: [Other fatigue] Onset: 04-26-2020 03-30-2021 Episodic Nausea and vomiting (2 sources) Nausea; Translations: [Nausea] Onset: 12-24-2023 12-24-2023 Episodic Nonspecific chest pain (20 sources) Chest pain, unspecified; Translations: [Chest pain] Onset: 05-05-2013 05-05-2013 Episodic Other aftercare (2 sources) Wound ; Translations: [Encounter for other specified aftercare] Onset: 12-28-2020 Resolved: 09-06-2021 09-06-2021 Episodic Other aftercare (1 source) terminologist (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 of aspirin; Translations: [CLERK (CURRENT) USE OF ASPIRIN] Onset: 04-30-2022 Episodic Other aftercare (2 sources) Other half-way (current) drug therapy; Translations: [OTHER CLERK (CURRENT) DRUG THERAPY] Onset: 04-30-2022 Episodic Other aftercare (1 source) terminologist (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 of oral hypoglycemic drugs; Translations: [CLERK (CURRENT) USE OF ORAL HYPOGLYCEMIC DRUGS] Onset: 04-30-2022 Episodic Other aftercare (1 source) Encounter for therapeutic drug level monitoring; Translations: [Medication monitoring encounter] Onset: 09-06-2023 Episodic Other connective tissue disease (1 source) Cramp in lower limb; Translations: [Cramp and spasm] Onset: 06-11-2017 06-11-2017 Episodic Other connective tissue disease (20 sources) Ganglion cyst of right foot; Translations: [Ganglion, right ankle and foot] Onset: 09-09-2015 09-09-2015 Episodic Other connective tissue disease (20 sources) Peroneal tendinitis; Translations: [Peroneal tendinitis, unspecified leg] Onset: 07-12-2016 07-12-2016 Episodic Other infections; including parasitic (15 sources) Trichomonal vaginitis; Translations: [Trichomonal vulvovaginitis] Onset: 07-31-2019 Resolved: 10-19-2019 07-31-2019 Episodic Other liver diseases (1 source) Abnormal levels of other serum enzymes; Translations: [Abnormal levels of other serum enzymes] Onset: 03-07-2022 Episodic Other lower respiratory disease (1 source) Dyspnea; Translations: [Shortness of breath] Onset: 05-05-2013 05-05-2013 Episodic Other lower respiratory disease (20 sources) Dyspnea on exertion; Translations: [Other forms of dyspnea] Onset: 08-21-2019 Resolved: 04-05-2020 08-21-2019 Episodic Other lower respiratory disease (15 sources) Snoring; Translations: [Snoring] Onset: 04-26-2020 03-30-2021 Episodic Other lower respiratory disease (1 source) Chest pain on breathing; Translations: [Chest pain on breathing] Onset: 05-06-2024 Episodic Other lower respiratory disease (1 source) Pleurodynia; Translations: [Pleurodynia] Onset: 05-06-2024 Episodic Other nervous system disorders (20 sources) Abnormal gait; Translations: [Unspecified abnormalities of gait and mobility] Onset: 05-04-2014 05-04-2014 Episodic Other non-traumatic joint disorders (20 sources) Arthralgia of the ankle and/or foot; Translations: [Pain in unspecified ankle and joints of unspecified foot] Onset: 07-12-2016 07-12-2016 Episodic Other nutritional; endocrine; and metabolic disorders (3 sources) Body mass index 30+ - obesity; Translations: [Obesity, unspecified] Onset: 11-16-2019 Resolved: 09-06-2021 09-06-2021 Chronic Other upper respiratory infections (1 source) Acute maxillary sinusitis, unspecified; Translations: [Acute maxillary sinusitis, unspecified] Onset: 10-24-2021 Episodic Residual codes; unclassified (2 sources) Localized edema; Translations: [Localized edema] Onset: 04-24-2021 04-24-2021 Episodic Residual codes; unclassified (20 sources) Localized edema; Translations: [Localized edema] Onset: 04-24-2021 Episodic Residual codes; unclassified (1 source) Presence of other specified devices; Translations: [Uses self-applied continuous glucose monitoring device] Onset: 10-30-2023 Episodic Unclassified (4 sources) Family history of ischemic heart disease and other diseases of the circulatory system; Translations: [Body mass index (BMI) 27.0-27.9, adult] Onset: 05-05-2013 03-16-2014 Episodic Viral infection (20 sources) Anal warts; Translations: [Anogenital (venereal) warts] Onset: 01-24-2012 08-17-2020 Episodic Results Test Name Value Interpretation Reference Range Facility CBC W/Diff, Automatedon 06-0 Absolute Lymph 0.75 X10 3/uL Low 0.83-4.51 [facility] Comment on above: Performed By: #### L 503.6005, L300.4310, L300.3900, L500.4050, L100.0100 ####[facility] [id number] [place], [place], [id number] Absolute Neut 8.7 X10 3/uL High 2.0-7.7 [facility] Comment on above: Performed By: #### L 503.6005, L300.4310, L300.3900, L500.4050, L100.0100 ####[facility] [id number] [place], [address] Basophils/100 WBC (Bld) 0.5 % Normal 0-1 [facility] Comment on above: Performed By: #### L 503.6005, L300.4310, L300.3900, L500.4050, L100.0100 ####[facility] [facility] [address] [place], [address] Eosinophils/100 WBC (Bld) 0.3 % Normal 0-5 [facility] Comment on above: Performed By: #### L 503.6005, L300.4310, L300.3900, L500.4050, L100.0100 ####[facility] [address] [place], [address] Erythrocyte distribution width (RBC) [Ratio] 14.5 % Normal 11.6-14.6 [facility] Comment on above: Performed By: #### L 503.6005, L300.4310, L300.3900, L500.4050, L100.0100 ####[facility] [address] [place], [address] Hematocrit (Bld) [Volume fraction] 42.0 % Normal 37-47 [facility] Comment on above: Performed By: #### L 503.6005, L300.4310, L300.3900, L500.4050, L100.0100 ####[facility] [address] [place], [address] Hemoglobin (Bld) [Mass/Vol] 14.2 g/dL Normal 12.0-15.0 [facility] Comment on above: Performed By: #### L 503.6005, L300.4310, L300.3900, L500.4050, L100.0100 ####[facility] [address] [place], [address] IG% 0.500 Normal 0.0-0.9 [facility] Comment on above: Result Comment: IG% - Immature Granulocytes (promyelocytes, myelocytes andmetamyelocytes) > 1% indicates that a LEFT SHIFT is Present. Performed By: #### L 503.6005, L300.4310, L300.3900, L500.4050, L100.0100 ####[facility] [address] [place], [address] Lymphocytes/100 WBC (Bld) 7.4 % Low 19-41 [facility] Comment on above: Performed By: #### L 503.6005, L300.4310, L300.3900, L500.4050, L100.0100 ####[facility] [address] [place], [address] MCH (RBC) [Entitic mass] 29.8 pg Normal 27.0-32.0 [facility] Comment on above: Performed By: #### L 503.6005, L300.4310, L300.3900, L500.4050, L100.0100 ####[facility] [address] [place], [address] MCHC (RBC) [Mass/Vol] 33.8 g/dL Normal 32-36 [facility] Comment on above: Performed By: #### L 503.6005, L300.4310, L300.3900, L500.4050, L100.0100 ####[facility] [address] [place], [address] MCV (RBC) [Entitic vol] 88.2 fL Normal 81-99 [facility] Comment on above: Performed By: #### L 503.6005, L300.4310, L300.3900, L500.4050, L100.0100 ####[facility] [address] [place], [address] Monocytes/100 WBC (Bld) 5.4 % Normal 0-10 [facility] Comment on above: Performed By: #### L 503.6005, L300.4310, L300.3900, L500.4050, L100.0100 ####[facility] [address] [place], [address] Neutrophils/100 WBC (Bld) 85.9 % High 47-70 [facility] Comment on above: Performed By: #### L 503.6005, L300.4310, L300.3900, L500.4050, L100.0100 ####[facility] [address] [place], [address] Nucleated RBC (Bld) [#/Vol] 0 10*3/uL Normal 0-5 [facility] Comment on above: Performed By: #### L 503.6005, L300.4310, L300.3900, L500.4050, L100.0100 ####[facility] [address] [place], [address] Platelet mean volume (Bld) [Entitic vol] 9.6 fL Normal 6.2-12.0 [facility] Comment on above: Performed By: #### L 503.6005, L300.4310, L300.3900, L500.4050, L100.0100 ####[facility] [address] [place], [address] Platelets (Bld) [#/Vol] 147 10*3/uL Low 150-450 [facility] Comment on above: Performed By: #### L 503.6005, L300.4310, L300.3900, L500.4050, L100.0100 ####[facility] [address] [place], [address] RBC (Bld) [#/Vol] 4.76 10*6/uL Normal 4.2-5.4 [facility] Comment on above: Performed By: #### L 503.6005, L300.4310, L300.3900, L500.4050, L100.0100 ####[facility] [address] [place], [address] RDW SD 46.1 fl High 35.1-43.9 [facility] Comment on above: Performed By: #### L 503.6005, L300.4310, L300.3900, L500.4050, L100.0100 ####[facility] [address] [place], [address] WBC (Bld) [#/Vol] 10.1 10*3/uL Normal 4.4-11.0 [facility] Comment on above: Performed By: #### L 503.6005, L300.4310, L300.3900, L500.4050, L100.0100 ####[facility] [address] [place], [address] CRPon 12-20-2024 C-REACTIVE PROT 25.40 mg/L High 0.0-3.0 [facility] Comment on above: Performed By: #### L 501.6710 ####[facility] [address] [place], [address] Chest 1 View (Portable)on Chest 1 View (Portable) Normal [facility] Comprehensive Metabolic Prof ilon 12-20-2024 Albumin [Mass/Vol] 4.3 g/dL Normal 3.5-5.0 [facility] Comment on above: Performed By: #### L 503.6005, L300.4310, L300.3900, L500.4050, L100.0100 ####[facility] [address] [place], [address] Albumin/Globulin [Mass ratio] 1.1 {ratio} Normal 0.9-2.4 [facility] Comment on above: Performed By: #### L 503.6005, L300.4310, L300.3900, L500.4050, L100.0100 ####[facility] [address] [place], [address] ALK PHOS 207 U/L High 35-104 [facility] Comment on above: Performed By: #### L 503.6005, L300.4310, L300.3900, L500.4050, L100.0100 ####[facility] [address] [place], [address] ALT [Catalytic activity/Vol] 21 U/L Normal <=34 [facility] Comment on above: Performed By: #### L 503.6005, L300.4310, L300.3900, L500.4050, L100.0100 ####[facility] [address] [place], [address] AST [Catalytic activity/Vol] 22 U/L Normal <=31 [facility] Comment on above: Performed By: #### L 503.6005, L300.4310, L300.3900, L500.4050, L100.0100 ####[facility] [address] [place], [address] Bilirubin [Mass/Vol] 0.60 mg/dL Normal 0.00-1.30 [facility] Comment on above: Performed By: #### L 503.6005, L300.4310, L300.3900, L500.4050, L100.0100 ####[facility] [address] [place], [address] BUN/CRE 11.9 RATIO Normal 10-20 [facility] Comment on above: Performed By: #### L 503.6005, L300.4310, L300.3900, L500.4050, L100.0100 ####[facility] [address] [place], [address] Calcium [Mass/Vol] 9.8 mg/dL Normal 7.6-11.0 [facility] Comment on above: Performed By: #### L 503.6005, L300.4310, L300.3900, L500.4050, L100.0100 ####[facility] [address] [place], [address] Chloride [Moles/Vol] 96 mmol/L Low 98-108 [facility] Comment on above: Performed By: #### L 503.6005, L300.4310, L300.3900, L500.4050, L100.0100 ####[facility] [address] [place], [address] CO2 [Moles/Vol] 24.3 mmol/L Normal 21.0-32.0 [facility] Comment on above: Performed By: #### L 503.6005, L300.4310, L300.3900, L500.4050, L100.0100 ####[facility] [address] [place], [address] Creatinine [Mass/Vol] 0.99 mg/dL Normal 0.70-1.20 [facility] Comment on above: Performed By: #### L 503.6005, L300.4310, L300.3900, L500.4050, L100.0100 ####[facility] [address] [place], [address] ECRCL 84.17 ml/min Normal 50-250 [facility] Comment on above: Performed By: #### L 503.6005, L300.4310, L300.3900, L500.4050, L100.0100 ####[facility] [address] [place], [address] GAP 12 Normal 5-15 [facility] Comment on above: Performed By: #### L 503.6005, L300.4310, L300.3900, L500.4050, L100.0100 ####[facility] [address] [place], [address] GFR/1.73 sq M.predicted among non-blacks MDRD (S/P/Bld) [Vol rate/Area] 66 mL/min/{1.73_m2} Normal >60 [facility] Comment on above: Result Comment: mL/m in/1.73m2 CKD-EPI Creatinine Equation (2020) Performed By: #### L 503.6005, L300.4310, L300.3900, L500.4050, L100.0100 ####[facility] [address] [place], [address] Globulin (S) [Mass/Vol] 4.0 g/dL Normal 2.2-4.2 [facility] Comment on above: Performed By: #### L 503.6005, L300.4310, L300.3900, L500.4050, L100.0100 ####[facility] [address] [place], [address] Glucose [Mass/Vol] 347 mg/dL High 70-99 [facility] Comment on above: Performed By: #### L 503.6005, L300.4310, L300.3900, L500.4050, L100.0100 ####[facility] [address] [place], [address] Potassium [Moles/Vol] 4.5 mmol/L Normal 3.3-5.1 [facility] Comment on above: Performed By: #### L 503.6005, L300.4310, L300.3900, L500.4050, L100.0100 ####[facility] [address] [place], [address] Sodium [Moles/Vol] 133 mmol/L Normal 133-145 [facility] Comment on above: Performed By: #### L 503.6005, L300.4310, L300.3900, L500.4050, L100.0100 ####[facility] [address] [place], [address] T PROT 8.3 g/dL Normal 5.9-8.4 [facility] Comment on above: Performed By: #### L 503.6005, L300.4310, L300.3900, L500.4050, L100.0100 ####[facility] [address] [place], [address] Urea nitrogen [Mass/Vol] 12 mg/dL Normal 4-19 [facility] Comment on above: Performed By: #### L 503.6005, L300.4310, L300.3900, L500.4050, L100.0100 ####[facility] [address] [place], [address] Lactic Acidon 12-20-2024 Lactate [Moles/Vol] 2.3 mmol/L Invalid Interpretation Code 0.0-2.0 [facility] Comment on above: Order Comment: Y Result Comment: Crit ical Result(s) Called HORR at: 2017 by:APOORVA??Results read back by same. Performed By: #### L 503.6005, L300.4310, L300.3900, L500.4050, L100.0100 ####[facility] [address] [place], [address] Partial Thromboplast Timeon 12-20-2024 aPTT Coag (Bld) [Time] 23.8 s Low 24.1-36.2 [facility] Comment on above: Performed By: #### L 503.6005, L300.4310, L300.3900, L500.4050, L100.0100 ####[facility] [address] [place], [address] Prothrombin Time w/INRon INR Coag (PPP) [Relative time] 1.1 {INR} Normal [facility] Comment on above: Performed By: #### L 503.6005, L300.4310, L300.3900, L500.4050, L100.0100 ####[facility] [address] [place], [address] PT Coag (PPP) [Time] 13.9 s Normal 11.7-14.9 [facility] Comment on above: Performed By: #### L 503.6005, L300.4310, L300.3900, L500.4050, L100.0100 ####[facility] [address] [place], [address] Urinalysis, Completeon - EPI,SQUAMOUS 0-5 SEEN Normal 5-10 [facility] Comment on above: Order Comment: NAOMI CTOR TO SPECIFY Performed By: #### L 400.0001 ####[facility] [address] [place], [address] RBC 0-5 SEEN Normal 0-5 [facility] Comment on above: Order Comment: NAOMI CTOR TO SPECIFY Performed By: #### L 400.0001 ####[facility] [address] [place], [address] WBC 0-5 SEEN Normal 0-5 [facility] Comment on above: Order Comment: NAOMI CTOR TO SPECIFY Performed By: #### L 400.0001 ####[facility] [address] [place], [address] BACTERIA 0 SEEN Normal None Seen [facility] Comment on above: Order Comment: NAOMI CTOR TO SPECIFY Performed By: #### L 400.0001 ####[facility] [address] [place], [address] Mucus Ql (Urine sed) 0 SEEN Normal [facility] Comment on above: Order Comment: NAOMI CTOR TO SPECIFY Performed By: #### L 400.0001 ####[facility] [address] [place], [address] Vancomycin, Random Levelon 0 12-20-2024 VANCO, RANDOM < 4.0 Normal 0.0-15.0 [facility] Comment on above: Result Comment: VANC OMYCIN STANDARD DRUG THERAPY: CRITICAL VALUE IS > 15.0 mg/LVANCOMYCIN HIGH INTENSITY THERAPY: CRITICAL VALUE IS > 20.0 mg/LPLEASE CONTACT PHARMACY SERVICES (#[id number]) FOR INTERPRETATIONOF RESULTS. THIS RESULT DOES NOT REPRESENT A PEAK OR TROUGHLEVEL FOR THIS DRUG. Performed By: #### L 501.8850 ####[facility] [address] [place], [address] Anion gap in Serum or Plasma Ordered By: Michel Haq on 12-15-2024 Anion gap [Moles/Vol] 11 mmol/L 11-26 [facility] BUN/creatinine ratioOrdered By: Michel Haq on 12-15-2024 Urea nitrogen/Creatinine [Mass ratio] 17.3 mg/mg 05-03 [facility] Basic Metabolic Profile (BMP )on 12-15-2024 BUN/CRE 17.3 RATIO Normal 05-03 [facility] Comment on above: Performed By: #### L 501.8820, L100.0500, L500.2500 ####[facility] [address] [place], [address] Calcium [Mass/Vol] 9.4 mg/dL Normal 7.6-11.0 [facility] Comment on above: Performed By: #### L 501.8820, L100.0500, L500.2500 ####[facility] [address] [place], [address] Chloride [Moles/Vol] 101 mmol/L Normal 98-108 [facility] Comment on above: Performed By: #### L 501.8820, L100.0500, L500.2500 ####[facility] [address] [place], [address] CO2 [Moles/Vol] 23.7 mmol/L Normal 21.0-32.0 [facility] Comment on above: Performed By: #### L 501.8820, L100.0500, L500.2500 ####[facility] [address] [place], [address] Creatinine [Mass/Vol] 0.80 mg/dL Normal 0.70-1.20 [facility] Comment on above: Performed By: #### L 501.8820, L100.0500, L500.2500 ####[facility] [address] [place], [address] GAP 11 Normal 5-15 [facility] Comment on above: Performed By: #### L 501.8820, L100.0500, L500.2500 ####[facility] [address] [place], [address] GFR/1.73 sq M.predicted among non-blacks MDRD (S/P/Bld) [Vol rate/Area] 85 mL/min/{1.73_m2} Normal >60 [facility] Comment on above: Result Comment: mL/m in/1.73m2 CKD-EPI Creatinine Equation (2020) Performed By: #### L 501.8820, L100.0500, L500.2500 ####[facility] [address] [place], [address] Glucose [Mass/Vol] 214 mg/dL High 70-99 [facility] Comment on above: Performed By: #### L 501.8820, L100.0500, L500.2500 ####[facility] [address] [place], [address] Potassium [Moles/Vol] 4.5 mmol/L Normal 3.3-5.1 [facility] Comment on above: Performed By: #### L 501.8820, L100.0500, L500.2500 ####[facility] [address] [place], [address] Sodium [Moles/Vol] 137 mmol/L Normal 133-145 [facility] Comment on above: Performed By: #### L 501.8820, L100.0500, L500.2500 ####[facility] [address] [place], [address] Urea nitrogen [Mass/Vol] 14 mg/dL Normal 4-19 [facility] Comment on above: Performed By: #### L 501.8820, L100.0500, L500.2500 ####[facility] [address] [place], [address] CBC-Complete Blood Cnt No Di ffon 12-15-2024 Erythrocyte distribution width (RBC) [Ratio] 14.4 % Normal 11.6-14.6 [facility] Comment on above: Performed By: #### L 501.8820, L100.0500, L500.2500 ####[facility] [address] [place], [address] Hematocrit (Bld) [Volume fraction] 37.2 % Normal 37-47 [facility] Comment on above: Performed By: #### L 501.8820, L100.0500, L500.2500 ####[facility] [address] [place], [address] Hemoglobin (Bld) [Mass/Vol] 11.9 g/dL Low 12.0-15.0 [facility] Comment on above: Performed By: #### L 501.8820, L100.0500, L500.2500 ####[facility] [address] [place], [address] MCH (RBC) [Entitic mass] 29.2 pg Normal 27.0-32.0 [facility] Comment on above: Performed By: #### L 501.8820, L100.0500, L500.2500 ####[facility] [address] [place], [address] MCHC (RBC) [Mass/Vol] 32.0 g/dL Normal 32-36 [facility] Comment on above: Performed By: #### L 501.8820, L100.0500, L500.2500 ####[facility] [address] [place], [address] MCV (RBC) [Entitic vol] 91.4 fL Normal 81-99 [facility] Comment on above: Performed By: #### L 501.8820, L100.0500, L500.2500 ####[facility] [address] [place], [address] Platelet mean volume (Bld) [Entitic vol] 10.8 fL Normal 6.2-12.0 [facility] Comment on above: Performed By: #### L 501.8820, L100.0500, L500.2500 ####[facility] [address] [place], [address] Platelets (Bld) [#/Vol] 142 10*3/uL Low 150-450 [facility] Comment on above: Performed By: #### L 501.8820, L100.0500, L500.2500 ####[facility] [address] [place], [address] RBC (Bld) [#/Vol] 4.07 10*6/uL Low 4.2-5.4 [facility] Comment on above: Performed By: #### L 501.8820, L100.0500, L500.2500 ####[facility] [address] [place], [address] RDW SD 47.7 fl High 35.1-43.9 [facility] Comment on above: Performed By: #### L 501.8820, L100.0500, L500.2500 ####[facility] [address] [place], [address] WBC (Bld) [#/Vol] 7.7 10*3/uL Normal 4.4-11.0 [facility] Comment on above: Performed By: #### L 501.8820, L100.0500, L500.2500 ####[facility] [address] [place], [address] Carbon dioxide, total [Moles /volume] in Central venous bloodOrdered By: Michel Haq on 12-15-2024 CO2 [Moles/Vol] 23.7 mmol/L 21.0-32.0 [facility] Chloride assayOrdered By: Gabrielle Haq on 12-15-2024 Chloride [Moles/Vol] 101 mmol/L 98-108 [facility] Erythrocyte distribution wid th ratioOrdered By: Michel Haq on 12-15-2024 Erythrocyte distribution width (RBC) [Ratio] 14.4 % 11.6-14.6 [facility] Erythrocyte distribution wid th standard deviationOrdered By: Michel Haq on 12-15-2024 Erythrocyte distribution width (RBC) [Ratio] 47.7 fl High 35.1-43.9 [facility] Glomerular filtration rate ( GFR) estimation/1.73 sq m using serum, plasma, or whole bOrdered By: Michel Haq on 12-15-2024 GFR/1.73 sq M.predicted among non-blacks MDRD (S/P/Bld) [Vol rate/Area] 85 mL/min/{1.73_m2} >60 [facility] Hematocrit Auto (Bld) [Volum e fraction]Ordered By: Michel Haq on 12-15-2024 Hematocrit (Bld) [Volume fraction] 37.2 % 37-47 [facility] Hemoglobin measurementOrdere d By: Michel Haq on 12-15-2024 Hemoglobin (Bld) [Mass/Vol] 11.9 g/dL Low 12.0-15.0 [facility] MCV (mean corpuscular volume ) determinationOrdered By: Michel Haq on 12-15-2024 MCV (RBC) [Entitic vol] 91.4 fL 81-99 [facility] Mean corpuscular hemoglobin (MCH) determinationOrdered By: Michel Haq on 12-15-2024 MCH (RBC) [Entitic mass] 29.2 pg 27.0-32.0 [facility] Platelet countOrdered By: Gabrielle Haq on 12-15-2024 Platelets (Bld) [#/Vol] 142 10*3/uL Low 150-450 [facility] Potassium measurement (mass/ volume)Ordered By: Michel Haq on 12-15-2024 Potassium (Unsp spec) [Mass/Vol] 4.5 mmol/L 3.3-5.1 [facility] RBC Auto (Bld) [#/Vol]Ordere d By: Michel Haq on 12-15-2024 RBC (Bld) [#/Vol] 4.07 10*6/uL Low 4.2-5.4 [facility] Serum creatinine measurement (mass/volume)Ordered By: Michel Haq on 12-15-2024 Creatinine [Mass/Vol] 0.80 mg/dL 0.70-1.20 [facility] Serum glucose measurement (m ass/volume)Ordered By: Michel Haq on 12-15-2024 Glucose [Mass/Vol] 214 mg/dL High 70-99 [facility] Serum or plasma calcium johnathon urement (mass/volume)Ordered By: Michel Haq on 12-15-2024 Calcium [Mass/Vol] 9.4 mg/dL 7.6-11.0 [facility] Serum or plasma urea nitroge n measurement (mass/volume)Ordered By: Michel Haq on 12-15-2024 Urea nitrogen [Mass/Vol] 14 mg/dL 4-19 [facility] Sodium levelOrdered By: Pan Haq on 12-15-2024 Sodium [Moles/Vol] 137 mmol/L 133-145 [facility] Trough vancomycin levelOrder ed By: Michel Haq on 12-15-2024 Vancomycin trough [Mass/Vol] 18.5 ug/mL High 5.0-15.0 [facility] Vancomycin, Trough Levelon 0 12-15-2024 VANCO, TROUGH 18.5 ug/mL High 5.0-15.0 [facility] Comment on above: Order Comment: 1200 Result Comment: Be mmended goal trough ranges [...] therapy recommended for serious lifethreatening infections include:- Mealxrmaku-Etjuazcvfkcw-Jguykozja (Ventilator/Healtcare Associated)-SepsisPLEASE CONTACT PHARMACY SERVICES (#6773) FOR INTERPRETATIONOF RESULTS. Performed By: #### L 501.8820, L100.0500, L500.2500 ####[facility] [address] [place], [place], [id number] White blood cell (WBC) count Ordered By: Michel Haq on 12-15-2024 WBC (Bld) [#/Vol] 7.7 10*3/uL 4.4-11.0 [facility] Endocrinology Visit Reporton 12-10-2024 Endocrinology Visit Report Normal [facility] No Panel InformationOrdered By: Sonia Quarles on 12-10-2024 11.2 % High 4.2-6.3 [facility] Internal Medicine Office Vis car 12-09-2024 Internal Medicine Office Visit Normal [facility] Anion gap in Serum or Plasma Ordered By: Michel Haq on 12-08-2024 Anion gap [Moles/Vol] 14 mmol/L 11-26 [facility] BUN/creatinine ratioOrdered By: Michel Haq on 12-08-2024 Urea nitrogen/Creatinine [Mass ratio] 14.4 mg/mg - [facility] Basic Metabolic Profile (BMP )on 12-08-2024 BUN/CRE 14.4 RATIO Normal 05-03 [facility] Comment on above: Performed By: #### L 501.8820, L500.2500, L100.0500 ####[facility] [address] [place], [place], [address] Calcium [Mass/Vol] 9.4 mg/dL Normal 7.6-11.0 [facility] Comment on above: Performed By: #### L 501.8820, L500.2500, L100.0500 ####[facility] [address] [place], [address] Chloride [Moles/Vol] 99 mmol/L Normal 98-108 [facility] Comment on above: Performed By: #### L 501.8820, L500.2500, L100.0500 ####[facility] [address] [place], [address] CO2 [Moles/Vol] 21.2 mmol/L Normal 21.0-32.0 [facility] Comment on above: Performed By: #### L 501.8820, L500.2500, L100.0500 ####[facility] [address] [place], [address] Creatinine [Mass/Vol] 0.86 mg/dL Normal 0.70-1.20 [facility] Comment on above: Performed By: #### L 501.8820, L500.2500, L100.0500 ####[facility] [address] [place], [address] GAP 14 Normal 5-15 [facility] Comment on above: Performed By: #### L 501.8820, L500.2500, L100.0500 ####[facility] [address] [place], [address] GFR/1.73 sq M.predicted among non-blacks MDRD (S/P/Bld) [Vol rate/Area] 79 mL/min/{1.73_m2} Normal >60 [facility] Comment on above: Result Comment: mL/m in/1.73m2 CKD-EPI Creatinine Equation (2020) Performed By: #### L 501.8820, L500.2500, L100.0500 ####[facility] [address] [place], [address] Glucose [Mass/Vol] 334 mg/dL High 70-99 [facility] Comment on above: Performed By: #### L 501.8820, L500.2500, L100.0500 ####[facility] [address] [place], [address] Potassium [Moles/Vol] 4.3 mmol/L Normal 3.3-5.1 [facility] Comment on above: Performed By: #### L 501.8820, L500.2500, L100.0500 ####[facility] [address] [place], [address] Sodium [Moles/Vol] 135 mmol/L Normal 133-145 [facility] Comment on above: Performed By: #### L 501.8820, L500.2500, L100.0500 ####[facility] [address] [place], [address] Urea nitrogen [Mass/Vol] 12 mg/dL Normal 4-19 [facility] Comment on above: Performed By: #### L 501.8820, L500.2500, L100.0500 ####[facility] [address] [place], [address] CBC-Complete Blood [facility] Erythrocyte distribution width (RBC) [Ratio] 14.0 % Normal 11.6-14.6 [facility] Comment on above: Performed By: #### L 501.8820, L500.2500, L100.0500 ####[facility] [address] [place], [address] Hematocrit (Bld) [Volume fraction] 36.8 % Low 37-47 [facility] Comment on above: Performed By: #### L 501.8820, L500.2500, L100.0500 ####[facility] [address] [place], [address] Hemoglobin (Bld) [Mass/Vol] 11.7 g/dL Low 12.0-15.0 [facility] Comment on above: Performed By: #### L 501.8820, L500.2500, L100.0500 ####[facility] [address] [place], [address] MCH (RBC) [Entitic mass] 29.0 pg Normal 27.0-32.0 [facility] Comment on above: Performed By: #### L 501.8820, L500.2500, L100.0500 ####[facility] [address] [place], [address] MCHC (RBC) [Mass/Vol] 31.8 g/dL Low 32-36 [facility] Comment on above: Performed By: #### L 501.8820, L500.2500, L100.0500 ####[facility] [address] [place], [address] MCV (RBC) [Entitic vol] 91.1 fL Normal 81-99 [facility] Comment on above: Performed By: #### L 501.8820, L500.2500, L100.0500 ####[facility] [address] [place], [address] Platelet mean volume (Bld) [Entitic vol] 11.2 fL Normal 6.2-12.0 [facility] Comment on above: Performed By: #### L 501.8820, L500.2500, L100.0500 ####[facility] [address] [place], [address] Platelets (Bld) [#/Vol] 167 10*3/uL Normal 150-450 [facility] Comment on above: Performed By: #### L 501.8820, L500.2500, L100.0500 ####[facility] [address] [place], [address] RBC (Bld) [#/Vol] 4.04 10*6/uL Low 4.2-5.4 [facility] Comment on above: Performed By: #### L 501.8820, L500.2500, L100.0500 ####[facility] [address] [place], [address] RDW SD 46.3 fl High 35.1-43.9 [facility] Comment on above: Performed By: #### L 501.8820, L500.2500, L100.0500 ####[facility] [address] [place], [address] WBC (Bld) [#/Vol] 6.0 10*3/uL Normal 4.4-11.0 [facility] Comment on above: Performed By: #### L 501.8820, L500.2500, L100.0500 ####[facility] [address] [place], [address] Carbon dioxide, total [Moles /volume] in Central venous bloodOrdered By: Michel Haq on 12-08-2024 CO2 [Moles/Vol] 21.2 mmol/L 21.0-32.0 [facility] Chloride assayOrdered By: Gabrielle Haq on 12-08-2024 Chloride [Moles/Vol] 99 mmol/L 98-108 [facility] Erythrocyte distribution wid th ratioOrdered By: Michel Haq on 12-08-2024 Erythrocyte distribution width (RBC) [Ratio] 14.0 % 11.6-14.6 [facility] Erythrocyte distribution wid th standard deviationOrdered By: Michel Haq on 12-08-2024 Erythrocyte distribution width (RBC) [Ratio] 46.3 fl High 35.1-43.9 [facility] Glomerular filtration rate ( GFR) estimation/1.73 sq m using serum, plasma, or whole bOrdered By: Michel Haq on 12-08-2024 GFR/1.73 sq M.predicted among non-blacks MDRD (S/P/Bld) [Vol rate/Area] 79 mL/min/{1.73_m2} >60 [facility] Hematocrit Auto (Bld) [Volum e fraction]Ordered By: Michel Haq on 12-08-2024 Hematocrit (Bld) [Volume fraction] 36.8 % Low 37-47 [facility] Hemoglobin measurementOrdere d By: Michel Haq on 12-08-2024 Hemoglobin (Bld) [Mass/Vol] 11.7 g/dL Low 12.0-15.0 [facility] MCV (mean corpuscular volume ) determinationOrdered By: Michel Haq on 12-08-2024 MCV (RBC) [Entitic vol] 91.1 fL 81-99 [facility] Mean corpuscular hemoglobin (MCH) determinationOrdered By: Michel Haq on 12-08-2024 MCH (RBC) [Entitic mass] 29.0 pg 27.0-32.0 [facility] Platelet countOrdered By: Gabrielle Haq on 12-08-2024 Platelets (Bld) [#/Vol] 167 10*3/uL 150-450 [facility] Potassium measurement (mass/ volume)Ordered By: Michel Haq on 12-08-2024 Potassium (Unsp spec) [Mass/Vol] 4.3 mmol/L 3.3-5.1 [facility] RBC Auto (Bld) [#/Vol]Ordere d By: Michel Haq on 12-08-2024 RBC (Bld) [#/Vol] 4.04 10*6/uL Low 4.2-5.4 [facility] Serum creatinine measurement (mass/volume)Ordered By: Michel Haq on 12-08-2024 Creatinine [Mass/Vol] 0.86 mg/dL 0.70-1.20 [facility] Serum glucose measurement (m ass/volume)Ordered By: Michel Haq on 12-08-2024 Glucose [Mass/Vol] 334 mg/dL High 70-99 [facility] Serum or plasma calcium johnathon urement (mass/volume)Ordered By: Michel Haq on 12-08-2024 Calcium [Mass/Vol] 9.4 mg/dL 7.6-11.0 [facility] Serum or plasma urea nitroge n measurement (mass/volume)Ordered By: Michel Haq on 12-08-2024 Urea nitrogen [Mass/Vol] 12 mg/dL 4-19 [facility] Sodium levelOrdered By: Pan Haq on 12-08-2024 Sodium [Moles/Vol] 135 mmol/L 133-145 [facility] Trough vancomycin levelOrder ed By: Michel Haq on 12-08-2024 Vancomycin trough [Mass/Vol] 16.1 ug/mL High 5.0-15.0 [facility] Vancomycin, Trough Levelon 0 12-08-2024 VANCO, TROUGH 16.1 ug/mL High 5.0-15.0 [facility] Comment on above: Order Comment: 1200 Result Comment: Be mmended goal trough ranges [...] therapy recommended for serious lifethreatening infections include:- Tkjlogxxcs-Jujdpgklvdcs-Abjpwwmpc (Ventilator/Healtcare Associated)-SepsisPLEASE CONTACT PHARMACY SERVICES (#3247) FOR INTERPRETATIONOF RESULTS. Performed By: #### L 501.8820, L500.2500, L100.0500 ####[facility] [address] [place], [address] White blood cell (WBC) count Ordered By: Michel Haq on 12-08-2024 WBC (Bld) [#/Vol] 6.0 10*3/uL 4.4-11.0 [facility] Anion gap in Serum or Plasma Ordered By: Michel Haq on 12-01-2024 Anion gap [Moles/Vol] 10 mmol/L 11-26 [facility] BUN/creatinine ratioOrdered By: Michel Haq on 12-01-2024 Urea nitrogen/Creatinine [Mass ratio] 14.1 mg/mg 05-03 [facility] Basic Metabolic Profile (BMP )on 12-01-2024 BUN/CRE 14.1 RATIO Normal 05-03 [facility] Comment on above: Performed By: #### L 100.0500, L501.8820, L500.2500 ####[facility] [address] [place], [address] Calcium [Mass/Vol] 9.5 mg/dL Normal 7.6-11.0 [facility] Comment on above: Performed By: #### L 100.0500, L501.8820, L500.2500 ####[facility] [address] [place], [address] Chloride [Moles/Vol] 100 mmol/L Normal 98-108 [facility] Comment on above: Performed By: #### L 100.0500, L501.8820, L500.2500 ####[facility] [address] [place], [address] CO2 [Moles/Vol] 25.7 mmol/L Normal 21.0-32.0 [facility] Comment on above: Performed By: #### L 100.0500, L501.8820, L500.2500 ####[facility] [address] [place], [address] Creatinine [Mass/Vol] 0.65 mg/dL Low 0.70-1.20 [facility] Comment on above: Performed By: #### L 100.0500, L501.8820, L500.2500 ####[facility] [address] [place], [address] GAP 10 Normal 5-15 [facility] Comment on above: Performed By: #### L 100.0500, L501.8820, L500.2500 ####[facility] [address] [place], [address] GFR/1.73 sq M.predicted among non-blacks MDRD (S/P/Bld) [Vol rate/Area] 102 mL/min/{1.73_m2} Normal >60 [facility] Comment on above: Result Comment: mL/m in/1.73m2 CKD-EPI Creatinine Equation (2020) Performed By: #### L 100.0500, L501.8820, L500.2500 ####[facility] [address] [place], [address] Glucose [Mass/Vol] 183 mg/dL High 70-99 [facility] Comment on above: Performed By: #### L 100.0500, L501.8820, L500.2500 ####[facility] [address] [place], [address] Potassium [Moles/Vol] 4.3 mmol/L Normal 3.3-5.1 [facility] Comment on above: Performed By: #### L 100.0500, L501.8820, L500.2500 ####[facility] [address] [place], [address] Sodium [Moles/Vol] 136 mmol/L Normal 133-145 [facility] Comment on above: Performed By: #### L 100.0500, L501.8820, L500.2500 ####[facility] [address] [place], [address] Urea nitrogen [Mass/Vol] 9 mg/dL Normal 4-19 [facility] Comment on above: Performed By: #### L 100.0500, L501.8820, L500.2500 ####[facility] [address] [place], [address] CBC-Complete Blood Cnt No Di ffon 12-01-2024 Erythrocyte distribution width (RBC) [Ratio] 14.5 % Normal 11.6-14.6 [facility] Comment on above: Performed By: #### L 100.0500, L501.8820, L500.2500 ####[facility] [address] [place], [address] Hematocrit (Bld) [Volume fraction] 34.2 % Low 37-47 [facility] Comment on above: Performed By: #### L 100.0500, L501.8820, L500.2500 ####[facility] [address] [place], [address] Hemoglobin (Bld) [Mass/Vol] 11.0 g/dL Low 12.0-15.0 [facility] Comment on above: Performed By: #### L 100.0500, L501.8820, L500.2500 ####[facility] [address] [place], [address] MCH (RBC) [Entitic mass] 29.3 pg Normal 27.0-32.0 [facility] Comment on above: Performed By: #### L 100.0500, L501.8820, L500.2500 ####[facility] [address] [place], [address] MCHC (RBC) [Mass/Vol] 32.2 g/dL Normal 32-36 [facility] Comment on above: Performed By: #### L 100.0500, L501.8820, L500.2500 ####[facility] [address] [place], [address] MCV (RBC) [Entitic vol] 91.2 fL Normal 81-99 [facility] Comment on above: Performed By: #### L 100.0500, L501.8820, L500.2500 ####[facility] [address] [place], [address] Platelet mean volume (Bld) [Entitic vol] 10.4 fL Normal 6.2-12.0 [facility] Comment on above: Performed By: #### L 100.0500, L501.8820, L500.2500 ####[facility] [address] [place], [address] Platelets (Bld) [#/Vol] 221 10*3/uL Normal 150-450 [facility] Comment on above: Performed By: #### L 100.0500, L501.8820, L500.2500 ####[facility] [address] [place], [address] RBC (Bld) [#/Vol] 3.75 10*6/uL Low 4.2-5.4 [facility] Comment on above: Performed By: #### L 100.0500, L501.8820, L500.2500 ####[facility] [address] [place], [address] RDW SD 47.8 fl High 35.1-43.9 [facility] Comment on above: Performed By: #### L 100.0500, L501.8820, L500.2500 ####[facility] [address] [place], [address] WBC (Bld) [#/Vol] 7.9 10*3/uL Normal 4.4-11.0 [facility] Comment on above: Performed By: #### L 100.0500, L501.8820, L500.2500 ####[facility] [address] [place], [address] Carbon dioxide, total [Moles /volume] in Central venous bloodOrdered By: Michel Haq on 12-01-2024 CO2 [Moles/Vol] 25.7 mmol/L 21.0-32.0 [facility] Chloride assayOrdered By: Gabrielle Haq on 12-01-2024 Chloride [Moles/Vol] 100 mmol/L 98-108 [facility] Erythrocyte distribution wid th ratioOrdered By: Michel Haq on 12-01-2024 Erythrocyte distribution width (RBC) [Ratio] 14.5 % 11.6-14.6 [facility] Erythrocyte distribution wid th standard deviationOrdered By: Michel Haq on 12-01-2024 Erythrocyte distribution width (RBC) [Ratio] 47.8 fl High 35.1-43.9 [facility] Glomerular filtration rate ( GFR) estimation/1.73 sq m using serum, plasma, or whole bOrdered By: Michel Haq on 12-01-2024 GFR/1.73 sq M.predicted among non-blacks MDRD (S/P/Bld) [Vol rate/Area] 102 mL/min/{1.73_m2} >60 [facility] Hematocrit Auto (Bld) [Volum e fraction]Ordered By: Michel Haq on 12-01-2024 Hematocrit (Bld) [Volume fraction] 34.2 % Low 37-47 [facility] Hemoglobin measurementOrdere d By: Michel Haq on 12-01-2024 Hemoglobin (Bld) [Mass/Vol] 11.0 g/dL Low 12.0-15.0 [facility] MCV (mean corpuscular volume ) determinationOrdered By: Michel Haq on 12-01-2024 MCV (RBC) [Entitic vol] 91.2 fL 81-99 [facility] Mean corpuscular hemoglobin (MCH) determinationOrdered By: Michel Haq on 12-01-2024 MCH (RBC) [Entitic mass] 29.3 pg 27.0-32.0 [facility] Platelet countOrdered By: Gabrielle Haq on 12-01-2024 Platelets (Bld) [#/Vol] 221 10*3/uL 150-450 [facility] Potassium measurement (mass/ volume)Ordered By: Michel Haq on 12-01-2024 Potassium (Unsp spec) [Mass/Vol] 4.3 mmol/L 3.3-5.1 [facility] RBC Auto (Bld) [#/Vol]Ordere d By: Michel Haq on 12-01-2024 RBC (Bld) [#/Vol] 3.75 10*6/uL Low 4.2-5.4 [facility] Serum creatinine measurement (mass/volume)Ordered By: Michel Haq on 12-01-2024 Creatinine [Mass/Vol] 0.65 mg/dL Low 0.70-1.20 [facility] Serum glucose measurement (m ass/volume)Ordered By: Michel Haq on 12-01-2024 Glucose [Mass/Vol] 183 mg/dL High 70-99 [facility] Serum or plasma calcium johnathon urement (mass/volume)Ordered By: Michel Haq on 12-01-2024 Calcium [Mass/Vol] 9.5 mg/dL 7.6-11.0 [facility] Serum or plasma urea nitroge n measurement (mass/volume)Ordered By: Michel Haq on 12-01-2024 Urea nitrogen [Mass/Vol] 9 mg/dL 4-19 [facility] Sodium levelOrdered By: Pan Haq on 12-01-2024 Sodium [Moles/Vol] 136 mmol/L 133-145 [facility] Trough vancomycin levelOrder ed By: Michel Haq on 12-01-2024 Vancomycin trough [Mass/Vol] 19.9 ug/mL High 5.0-15.0 [facility] Vancomycin, Trough Levelon 0 12-01-2024 VANCO, TROUGH 19.9 ug/mL High 5.0-15.0 [facility] Comment on above: Order Comment: 1200 Result Comment: Be mmended goal trough ranges [...] therapy recommended for serious lifethreatening infections include:- Ezsucstzcx-Xgfpdyvlypeg-Byhruuoja (Ventilator/Healtcare Associated)-SepsisPLEASE CONTACT PHARMACY SERVICES (#4853) FOR INTERPRETATIONOF RESULTS. Performed By: #### L 100.0500, L501.8820, L500.2500 ####[facility] [address] [place], [address] White blood cell (WBC) count Ordered By: Michel Haq on 12-01-2024 WBC (Bld) [#/Vol] 7.9 10*3/uL 4.4-11.0 [facility] Culture, Blood (WB)on 2024 CUB No growth in 5 days. Normal [facility] Comment on above: Performed By: #### M 200.1000 ####[facility] [address] [place], [address] Chest PA and Lateralon 11-27 Chest PA and Lateral Normal [facility] Culture, Blood (WB)on 2024 CUB No growth in 5 days. Normal [facility] Comment on above: Performed By: #### M 200.1000 ####[facility] [address] [place], [address] Emergency Department Summary on 11-27-2024 Emergency Department Summary Normal [facility] Bedside Glucoseon 11-26-2024 FINGERSTICK GLU 275 mg/dL High [address] [place] [address] Comment on above: Result Comment: ELLIOTT GEMENT OF PATIENT CARE PER NURSING PROTOCOL Performed By: #### L 501.080 ####[facility] [address] [place], [address] FINGERSTICK GLU 286 mg/dL High [address] [place] [address] Comment on above: Result Comment: ELLIOTT GEMENT OF PATIENT CARE PER NURSING PROTOCOL Performed By: #### L 501.080 ####[facility] [address] [place], [address] FINGERSTICK GLU 215 mg/dL High [address] [place] [address] Comment on above: Result Comment: ELLIOTT GEMENT OF PATIENT CARE PER NURSING PROTOCOL Performed By: #### L 501.080 ####[facility] [address] [place], [address] FINGERSTICK GLU 270 mg/dL High [address] [place] [address] Comment on above: Result Comment: ELLIOTT GEMENT OF PATIENT CARE PER NURSING PROTOCOL Performed By: #### L 501.080 ####[facility] [address] [place], [address] Discharge Instructionon 11-12 Discharge Instruction Normal [facility] Glucose measurement at bedsi deOrdered By: Denisse Guan on 11-26-2024 Glucose [Mass/Vol] 286 mg/dL High 74-106 [facility] Glucose [Mass/Vol] 215 mg/dL High 74-106 [facility] Absolute lymphocyte countOrd ered By: Haider Smith on 11-25-2024 Lymphocytes Auto (Unsp spec) [#/Vol] 1.76 10*3/uL 0.83-4.51 [facility] Anion gap in Serum or Plasma Ordered By: Haider Smith on 11-25-2024 Anion gap [Moles/Vol] 10 mmol/L - [facility] Automated lymphocyte count a s percentage of total leukocytesOrdered By: Haider Smith on 11-25-2024 Lymphocytes/100 WBC Auto (Unsp spec) 37.4 % [facility] BUN/creatinine ratioOrdered By: Haider Smith on 11-25-2024 Urea nitrogen/Creatinine [Mass ratio] 7.2 mg/mg Low 10- [facility] Basic Metabolic Profile (BMP )on 11-25-2024 BUN/CRE 7.2 RATIO Low - [facility] Comment on above: Performed By: #### L 500.2500, L100.0100 ####[facility] [address] [place], [address] Calcium [Mass/Vol] 8.9 mg/dL Normal 7.6-11.0 [facility] Comment on above: Performed By: #### L 500.2500, L100.0100 ####[facility] [address] [place], [address] Chloride [Moles/Vol] 109 mmol/L High 98-108 [facility] Comment on above: Performed By: #### L 500.2500, L100.0100 ####[facility] [address] [place], [address] CO2 [Moles/Vol] 22.0 mmol/L Normal 21.0-32.0 [facility] Comment on above: Performed By: #### L 500.2500, L100.0100 ####[facility] [address] [place], [address] Creatinine [Mass/Vol] 0.66 mg/dL Low 0.70-1.20 [facility] Comment on above: Performed By: #### L 500.2500, L100.0100 ####[facility] [address] [place], [address] ECRCL 131.01 ml/min Normal 50-250 [facility] Comment on above: Performed By: #### L 500.2500, L100.0100 ####[facility] [address] [place], [address] GAP 10 Normal 5-15 [facility] Comment on above: Performed By: #### L 500.2500, L100.0100 ####[facility] [address] [place], [address] GFR/1.73 sq M.predicted among non-blacks MDRD (S/P/Bld) [Vol rate/Area] 102 mL/min/{1.73_m2} Normal >60 [facility] Comment on above: Result Comment: mL/m in/1.73m2 CKD-EPI Creatinine Equation (2020) Performed By: #### L 500.2500, L100.0100 ####[facility] [address] [place], [address] Glucose [Mass/Vol] 125 mg/dL High 70-99 [facility] Comment on above: Performed By: #### L 500.2500, L100.0100 ####[facility] [address] [place], [address] Potassium [Moles/Vol] 3.6 mmol/L Normal 3.3-5.1 [facility] Comment on above: Performed By: #### L 500.2500, L100.0100 ####[facility] [address] [place], [address] Sodium [Moles/Vol] 141 mmol/L Normal 133-145 [facility] Comment on above: Performed By: #### L 500.2500, L100.0100 ####[facility] [address] [place], [address] Urea nitrogen [Mass/Vol] 5 mg/dL Normal 4-19 [facility] Comment on above: Performed By: #### L 500.2500, L100.0100 ####[facility] [address] [place], [address] Basophil percentageOrdered B y: Haider Smith on 11-25-2024 Basophils/100 WBC (Bld) 0.9 % 0-1 [facility] Bedside Glucoseon 11-25-2024 FINGERSTICK GLU 81 mg/dL Normal 74-106 [facility] Comment on above: Result Comment: ELLIOTT GEMENT OF PATIENT CARE PER NURSING PROTOCOL Performed By: #### L 501.080 ####[facility] [address] [place], [address] FINGERSTICK GLU 198 mg/dL High 74-106 [facility] Comment on above: Result Comment: ELLIOTT GEMENT OF PATIENT CARE PER NURSING PROTOCOL Performed By: #### L 501.080 ####[facility] [address] [place], [address] FINGERSTICK GLU 132 mg/dL High 74-106 [facility] Comment on above: Result Comment: ELLIOTT GEMENT OF PATIENT CARE PER NURSING PROTOCOL Performed By: #### L 501.080 ####[facility] [address] [place], [address] CBC W/Diff, Automatedon - Absolute Lymph 1.76 X10 3/uL Normal 0.83-4.51 [facility] Comment on above: Performed By: #### L 500.2500, L100.0100 ####[facility] [address] [place], [address] Absolute Neut 2.1 X10 3/uL Normal 2.0-7.7 [facility] Comment on above: Performed By: #### L 500.2500, L100.0100 ####[facility] [address] [place], [address] Basophils/100 WBC (Bld) 0.9 % Normal 0-1 [facility] Comment on above: Performed By: #### L 500.2500, L100.0100 ####[facility] [address] [place], [address] Eosinophils/100 WBC (Bld) 2.1 % Normal 0-5 [facility] Comment on above: Performed By: #### L 500.2500, L100.0100 ####[facility] [address] [place], [address] Erythrocyte distribution width (RBC) [Ratio] 14.4 % Normal 11.6-14.6 [facility] Comment on above: Performed By: #### L 500.2500, L100.0100 ####[facility] [address] [place], [address] Hematocrit (Bld) [Volume fraction] 31.8 % Low 37-47 [facility] Comment on above: Performed By: #### L 500.2500, L100.0100 ####[facility] [address] [place], [address] Hemoglobin (Bld) [Mass/Vol] 10.4 g/dL Low 12.0-15.0 [facility] Comment on above: Performed By: #### L 500.2500, L100.0100 ####[facility] [address] [place], [address] IG% 1.900 High 0.0-0.9 [facility] Comment on above: Result Comment: IG% - Immature Granulocytes (promyelocytes, myelocytes andmetamyelocytes) > 1% indicates that a LEFT SHIFT is Present. Performed By: #### L 500.2500, L100.0100 ####[facility] [address] [place], [address] Lymphocytes/100 WBC (Bld) 37.4 % Normal 19-41 [facility] Comment on above: Performed By: #### L 500.2500, L100.0100 ####[facility] [address] [place], [address] MCH (RBC) [Entitic mass] 29.0 pg Normal 27.0-32.0 [facility] Comment on above: Performed By: #### L 500.2500, L100.0100 ####[facility] [address] [place], [address] MCHC (RBC) [Mass/Vol] 32.7 g/dL Normal 32-36 [facility] Comment on above: Performed By: #### L 500.2500, L100.0100 ####[facility] [address] [place], [address] MCV (RBC) [Entitic vol] 88.6 fL Normal 81-99 [facility] Comment on above: Performed By: #### L 500.2500, L100.0100 ####[facility] [address] [place], [address] Monocytes/100 WBC (Bld) 12.1 % High 0-10 [facility] Comment on above: Performed By: #### L 500.2500, L100.0100 ####[facility] [address] [place], [address] Neutrophils/100 WBC (Bld) 45.6 % Low 47-70 [facility] Comment on above: Performed By: #### L 500.2500, L100.0100 ####[facility] [address] [place], [address] Nucleated RBC (Bld) [#/Vol] 0 10*3/uL Normal 0-5 [facility] Comment on above: Performed By: #### L 500.2500, L100.0100 ####[facility] [address] [place], [address] Platelet mean volume (Bld) [Entitic vol] 10.0 fL Normal 6.2-12.0 [facility] Comment on above: Performed By: #### L 500.2500, L100.0100 ####[facility] [address] [place], [address] Platelets (Bld) [#/Vol] 142 10*3/uL Low 150-450 [facility] Comment on above: Performed By: #### L 500.2500, L100.0100 ####[facility] [address] [place], [address] RBC (Bld) [#/Vol] 3.59 10*6/uL Low 4.2-5.4 [facility] Comment on above: Performed By: #### L 500.2500, L100.0100 ####[facility] [address] [place], [address] RDW SD 46.5 fl High 35.1-43.9 [facility] Comment on above: Performed By: #### L 500.2500, L100.0100 ####[facility] [address] [place], [address] WBC (Bld) [#/Vol] 4.7 10*3/uL Normal 4.4-11.0 [facility] Comment on above: Performed By: #### L 500.2500, L100.0100 ####[facility] [address] [place], [address] Carbon dioxide, total [Moles /volume] in Central venous bloodOrdered By: Haider Smith on 11-25-2024 CO2 [Moles/Vol] 22.0 mmol/L 21.0-32.0 [facility] Chloride assayOrdered By: Marleen Smith on 11-25-2024 Chloride [Moles/Vol] 109 mmol/L High 98-108 [facility] Eosinophil percentageOrdered By: Haider Smith on 11-25-2024 Eosinophils/100 WBC (Bld) 2.1 % 0-5 [facility] Erythrocyte distribution wid th ratioOrdered By: Haider Smith on 11-25-2024 Erythrocyte distribution width (RBC) [Ratio] 14.4 % 11.6-14.6 [facility] Erythrocyte distribution wid th standard deviationOrdered By: Haider Smith on 11-25-2024 Erythrocyte distribution width (RBC) [Ratio] 46.5 fl High 35.1-43.9 [facility] Glomerular filtration rate ( GFR) estimation/1.73 sq m using serum, plasma, or whole bOrdered By: Haider Smith on 11-25-2024 GFR/1.73 sq M.predicted among non-blacks MDRD (S/P/Bld) [Vol rate/Area] 102 mL/min/{1.73_m2} >60 [facility] Hematocrit Auto (Bld) [Volum e fraction]Ordered By: Haider Smith on 11-25-2024 Hematocrit (Bld) [Volume fraction] 31.8 % Low 37-47 [facility] Hemoglobin measurementOrdere d By: Haider Smith on 11-25-2024 Hemoglobin (Bld) [Mass/Vol] 10.4 g/dL Low 12.0-15.0 [facility] Immature granulocytes/100 WB C Auto (Bld)Ordered By: Haider Smith on 11-25-2024 Immature granulocytes/100 WBC (Bld) 1.900 % High 0.0-0.9 [facility] MCV (mean corpuscular volume ) determinationOrdered By: Haider Smith on 11-25-2024 MCV (RBC) [Entitic vol] 88.6 fL 81-99 [facility] Mean corpuscular hemoglobin (MCH) determinationOrdered By: Haider Smith on 11-25-2024 MCH (RBC) [Entitic mass] 29.0 pg 27.0-32.0 [facility] Monocyte percentageOrdered B y: Haider Smith on 11-25-2024 Monocytes/100 WBC (Bld) 12.1 % High 0-10 [facility] Neutrophil percentageOrdered By: Haider Smith on 11-25-2024 Neutrophils/100 WBC (Bld) 45.6 % Low 47-70 [facility] Platelet countOrdered By: Marleen Smith on 11-25-2024 Platelets (Bld) [#/Vol] 142 10*3/uL Low 150-450 [facility] Potassium measurement (mass/ volume)Ordered By: Haider Smith on 11-25-2024 Potassium (Unsp spec) [Mass/Vol] 3.6 mmol/L 3.3-5.1 [facility] RBC Auto (Bld) [#/Vol]Ordere d By: Haider Smith on 11-25-2024 RBC (Bld) [#/Vol] 3.59 10*6/uL Low 4.2-5.4 [facility] Serum creatinine measurement (mass/volume)Ordered By: Haider Smith on 11-25-2024 Creatinine [Mass/Vol] 0.66 mg/dL Low 0.70-1.20 [facility] Serum glucose measurement (m ass/volume)Ordered By: Haider Smith on 11-25-2024 Glucose [Mass/Vol] 125 mg/dL High 70-99 [facility] Serum or plasma calcium johnathon urement (mass/volume)Ordered By: Haider Smith on 11-25-2024 Calcium [Mass/Vol] 8.9 mg/dL 7.6-11.0 [facility] Serum or plasma urea nitroge n measurement (mass/volume)Ordered By: Haider Smith on 11-25-2024 Urea nitrogen [Mass/Vol] 5 mg/dL 4-19 [facility] Sodium levelOrdered By: Haidre Smith on 11-25-2024 Sodium [Moles/Vol] 141 mmol/L 133-145 [facility] Trough vancomycin levelOrder ed By: Haider Smith on 11-25-2024 Vancomycin trough [Mass/Vol] 21.2 ug/mL High 5.0-15.0 [facility] Vancomycin, Trough Levelon 0 11-25-2024 VANCO, TROUGH 21.2 ug/mL High 5.0-15.0 [facility] Comment on above: Order Comment: Comme nts: Trough to be drawn 30 mins prior to scheduled [id number] Result Comment: Be mmended goal trough ranges [...] therapy recommended for serious lifethreatening infections include:- Pusetgnxzq-Irmwhyjtwrlt-Nwxllkkjs (Ventilator/Healtcare Associated)-SepsisPLEASE CONTACT PHARMACY SERVICES (#7038) FOR INTERPRETATIONOF RESULTS. Performed By: #### L 501.8820 ####[facility] [address] [place], [address] White blood cell (WBC) count Ordered By: Haider Smith on 11-25-2024 WBC (Bld) [#/Vol] 4.7 10*3/uL 4.4-11.0 [facility] Basic Metabolic Profile (BMP )on 11-24-2024 BUN/CRE 9.7 RATIO Low 10-20 [facility] Comment on above: Performed By: #### L 100.0100, L500.2500 ####[facility] [address] [place], [address] Calcium [Mass/Vol] 8.9 mg/dL Normal 7.6-11.0 [facility] Comment on above: Performed By: #### L 100.0100, L500.2500 ####[facility] [address] [place], [address] Chloride [Moles/Vol] 107 mmol/L Normal 98-108 [facility] Comment on above: Performed By: #### L 100.0100, L500.2500 ####[facility] [address] [place], [address] CO2 [Moles/Vol] 22.7 mmol/L Normal 21.0-32.0 [facility] Comment on above: Performed By: #### L 100.0100, L500.2500 ####[facility] [address] [place], [address] Creatinine [Mass/Vol] 0.62 mg/dL Low 0.70-1.20 [facility] Comment on above: Performed By: #### L 100.0100, L500.2500 ####[facility] [address] [place], [address] ECRCL 138.90 ml/min Normal 50-250 [facility] Comment on above: Performed By: #### L 100.0100, L500.2500 ####[facility] [address] [place], [address] GAP 10 Normal 5-15 [facility] Comment on above: Performed By: #### L 100.0100, L500.2500 ####[facility] [address] [place], [address] GFR/1.73 sq M.predicted among non-blacks MDRD (S/P/Bld) [Vol rate/Area] 103 mL/min/{1.73_m2} Normal >60 [facility] Comment on above: Result Comment: mL/m in/1.73m2 CKD-EPI Creatinine Equation (2020) Performed By: #### L 100.0100, L500.2500 ####[facility] [address] [place], [address] Glucose [Mass/Vol] 85 mg/dL Normal 70-99 [facility] Comment on above: Performed By: #### L 100.0100, L500.2500 ####[facility] [address] [place], [address] Potassium [Moles/Vol] 3.9 mmol/L Normal 3.3-5.1 [facility] Comment on above: Performed By: #### L 100.0100, L500.2500 ####[facility] [address] [place], [address] Sodium [Moles/Vol] 140 mmol/L Normal 133-145 [facility] Comment on above: Performed By: #### L 100.0100, L500.2500 ####[facility] [address] [place], [address] Urea nitrogen [Mass/Vol] 6 mg/dL Normal 4-19 [facility] Comment on above: Performed By: #### L 100.0100, L500.2500 ####[facility] [address] [place], [address] Bedside Glucoseon 11-24-2024 FINGERSTICK GLU 99 mg/dL Normal 74-106 [facility] Comment on above: Result Comment: ELLIOTT GEMENT OF PATIENT CARE PER NURSING PROTOCOL Performed By: #### L 501.080 ####[facility] [address] [place], [address] FINGERSTICK GLU 94 mg/dL Normal 74-106 [facility] Comment on above: Result Comment: ELLIOTT GEMENT OF PATIENT CARE PER NURSING PROTOCOL Performed By: #### L 501.080 ####[facility] [address] [place], [address] FINGERSTICK GLU 201 mg/dL High 74-106 [facility] Comment on above: Result Comment: ELLIOTT GEMENT OF PATIENT CARE PER NURSING PROTOCOL Performed By: #### L 501.080 ####[facility] [address] [place], [address] FINGERSTICK GLU 91 mg/dL Normal 74-106 [facility] Comment on above: Result Comment: ELLIOTT ESTRADA OF PATIENT CARE PER NURSING PROTOCOL Performed By: #### L 501.080 ####[facility] [address] [place], [address] CBC W/Diff, Automatedon 05-1 -2024 Absolute Lymph 1.67 X10 3/uL Normal 0.83-4.51 [facility] Comment on above: Performed By: #### L 100.0100, L500.2500 ####[facility] [address] [place], [address] Absolute Neut 2.0 X10 3/uL Normal 2.0-7.7 [facility] Comment on above: Performed By: #### L 100.0100, L500.2500 ####[facility] [address] [place], [address] Basophils/100 WBC (Bld) 0.9 % Normal 0-1 [facility] Comment on above: Performed By: #### L 100.0100, L500.2500 ####[facility] [address] [place], [address] Eosinophils/100 WBC (Bld) 3.0 % Normal 0-5 [facility] Comment on above: Performed By: #### L 100.0100, L500.2500 ####[facility] [address] [place], [address] Erythrocyte distribution width (RBC) [Ratio] 14.4 % Normal 11.6-14.6 [facility] Comment on above: Performed By: #### L 100.0100, L500.2500 ####[facility] [address] [place], [address] Hematocrit (Bld) [Volume fraction] 32.4 % Low 37-47 [facility] Comment on above: Performed By: #### L 100.0100, L500.2500 ####[facility] [address] [place], [address] Hemoglobin (Bld) [Mass/Vol] 10.4 g/dL Low 12.0-15.0 [facility] Comment on above: Performed By: #### L 100.0100, L500.2500 ####[facility] [address] [place], [address] IG% 0.500 Normal 0.0-0.9 [facility] Comment on above: Result Comment: IG% - Immature Granulocytes (promyelocytes, myelocytes andmetamyelocytes) > 1% indicates that a LEFT SHIFT is Present. Performed By: #### L 100.0100, L500.2500 ####[facility] [address] [place], [address] Lymphocytes/100 WBC (Bld) 38.3 % Normal 19-41 [facility] Comment on above: Performed By: #### L 100.0100, L500.2500 ####[facility] [address] [place], [address] MCH (RBC) [Entitic mass] 29.0 pg Normal 27.0-32.0 [facility] Comment on above: Performed By: #### L 100.0100, L500.2500 ####[facility] [address] [place], [address] MCHC (RBC) [Mass/Vol] 32.1 g/dL Normal 32-36 [facility] Comment on above: Performed By: #### L 100.0100, L500.2500 ####[facility] [address] [place], [address] MCV (RBC) [Entitic vol] 90.3 fL Normal 81-99 [facility] Comment on above: Performed By: #### L 100.0100, L500.2500 ####[facility] [address] [place], [address] Monocytes/100 WBC (Bld) 11.0 % High 0-10 [facility] Comment on above: Performed By: #### L 100.0100, L500.2500 ####[facility] [address] [place], [address] Neutrophils/100 WBC (Bld) 46.3 % Low 47-70 [facility] Comment on above: Performed By: #### L 100.0100, L500.2500 ####[facility] [address] [place], [address] Nucleated RBC (Bld) [#/Vol] 0 10*3/uL Normal 0-5 [facility] Comment on above: Performed By: #### L 100.0100, L500.2500 ####[facility] [address] [place], [address] Platelet mean volume (Bld) [Entitic vol] 10.7 fL Normal 6.2-12.0 [facility] Comment on above: Performed By: #### L 100.0100, L500.2500 ####[facility] [address] [place], [address] Platelets (Bld) [#/Vol] 123 10*3/uL Low 150-450 [facility] Comment on above: Performed By: #### L 100.0100, L500.2500 ####[facility] [address] [place], [address] RBC (Bld) [#/Vol] 3.59 10*6/uL Low 4.2-5.4 [facility] Comment on above: Performed By: #### L 100.0100, L500.2500 ####[facility] [address] [place], [address] RDW SD 48.1 fl High 35.1-43.9 [facility] Comment on above: Performed By: #### L 100.0100, L500.2500 ####[facility] [address] [place], [address] WBC (Bld) [#/Vol] 4.4 10*3/uL Normal 4.4-11.0 [facility] Comment on above: Performed By: #### L 100.0100, L500.2500 ####[facility] [address] [place], [address] BC GPC IDon 11-23-2024 BC GPC ID Normal [facility] Comment on above: Performed By: #### L 503.6005, L100.0100, L300.3900, L300.4310, M200.1000, M100.636, L500.4050 ####[facility] [address] [place], [address] Basic Metabolic Profile (BMP )on 11-23-2024 BUN/CRE 12.5 RATIO Normal 10-20 [facility] Comment on above: Performed By: #### L 500.2500, L100.0100 ####[facility] [address] [place], [address] Calcium [Mass/Vol] 8.9 mg/dL Normal 7.6-11.0 [facility] Comment on above: Performed By: #### L 500.2500, L100.0100 ####[facility] [address] [place], [address] Chloride [Moles/Vol] 108 mmol/L Normal 98-108 [facility] Comment on above: Performed By: #### L 500.2500, L100.0100 ####[facility] [address] [place], [address] CO2 [Moles/Vol] 23.3 mmol/L Normal 21.0-32.0 [facility] Comment on above: Performed By: #### L 500.2500, L100.0100 ####[facility] [address] [place], [address] Creatinine [Mass/Vol] 0.63 mg/dL Low 0.70-1.20 [facility] Comment on above: Performed By: #### L 500.2500, L100.0100 ####[facility] [address] [place], [address] ECRCL 135.59 ml/min Normal 50-250 [facility] Comment on above: Performed By: #### L 500.2500, L100.0100 ####[facility] [address] [place], [address] GAP 8 Normal 5-15 [facility] Comment on above: Performed By: #### L 500.2500, L100.0100 ####[facility] [address] [place], [address] GFR/1.73 sq M.predicted among non-blacks MDRD (S/P/Bld) [Vol rate/Area] 103 mL/min/{1.73_m2} Normal >60 [facility] Comment on above: Result Comment: mL/m in/1.73m2 CKD-EPI Creatinine Equation (2020) Performed By: #### L 500.2500, L100.0100 ####[facility] [address] [place], [address] Glucose [Mass/Vol] 79 mg/dL Normal 70-99 [facility] Comment on above: Performed By: #### L 500.2500, L100.0100 ####[facility] [address] [place], [address] Potassium [Moles/Vol] 3.8 mmol/L Normal 3.3-5.1 [facility] Comment on above: Performed By: #### L 500.2500, L100.0100 ####[facility] [address] [place], [address] Sodium [Moles/Vol] 140 mmol/L Normal 133-145 [facility] Comment on above: Performed By: #### L 500.2500, L100.0100 ####[facility] [address] [place], [address] Urea nitrogen [Mass/Vol] 8 mg/dL Normal 4-19 [facility] Comment on above: Performed By: #### L 500.2500, L100.0100 ####[facility] [address] [place], [place], [address] Bedside Glucoseon 11-23-2024 FINGERSTICK GLU 82 mg/dL Normal 74-106 [facility] Comment on above: Result Comment: ELLIOTT GEMENT OF PATIENT CARE PER NURSING PROTOCOL Performed By: #### L 501.080 ####[facility] [address] [place], [address] FINGERSTICK GLU 93 mg/dL Normal 74-106 [facility] Comment on above: Result Comment: ELLIOTT GEMENT OF PATIENT CARE PER NURSING PROTOCOL Performed By: #### L 501.080 ####[facility] [address] [place], [address] FINGERSTICK GLU 92 mg/dL Normal 74-106 [facility] Comment on above: Result Comment: ELLIOTT GEMENT OF PATIENT CARE PER NURSING PROTOCOL Performed By: #### L 501.080 ####[facility] [address] [place], [address] FINGERSTICK GLU 83 mg/dL Normal 74-106 [facility] Comment on above: Result Comment: ELLIOTT GEMENT OF PATIENT CARE PER NURSING PROTOCOL Performed By: #### L 501.080 ####[facility] [address] [place], [address] Blood cultureOrdered By: Justino Haq on 11-23-2024 Bacteria identified Cx Nom (Bld) No growth in 5 days. [facility] CBC W/Diff, Automatedon 05-07 16-2024 Absolute Lymph 1.32 X10 3/uL Normal 0.83-4.51 [facility] Comment on above: Performed By: #### L 500.2500, L100.0100 ####[facility] [address] [place], [address] Absolute Neut 3.8 X10 3/uL Normal 2.0-7.7 [facility] Comment on above: Performed By: #### L 500.2500, L100.0100 ####[facility] [address] [place], [address] Basophils/100 WBC (Bld) 0.5 % Normal 0-1 [facility] Comment on above: Performed By: #### L 500.2500, L100.0100 ####[facility] [address] [place], [address] Eosinophils/100 WBC (Bld) 2.4 % Normal 0-5 [facility] Comment on above: Performed By: #### L 500.2500, L100.0100 ####[facility] [address] [place], [address] Erythrocyte distribution width (RBC) [Ratio] 14.6 % Normal 11.6-14.6 [facility] Comment on above: Performed By: #### L 500.2500, L100.0100 ####[facility] [address] [place], [address] Hematocrit (Bld) [Volume fraction] 32.7 % Low 37-47 [facility] Comment on above: Performed By: #### L 500.2500, L100.0100 ####[facility] [address] [place], [address] Hemoglobin (Bld) [Mass/Vol] 10.4 g/dL Low 12.0-15.0 [facility] Comment on above: Performed By: #### L 500.2500, L100.0100 ####[facility] [address] [place], [address] IG% 0.300 Normal 0.0-0.9 [facility] Comment on above: Result Comment: IG% - Immature Granulocytes (promyelocytes, myelocytes andmetamyelocytes) > 1% indicates that a LEFT SHIFT is Present. Performed By: #### L 500.2500, L100.0100 ####[facility] [address] [place], [address] Lymphocytes/100 WBC (Bld) 22.9 % Normal 19-41 [facility] Comment on above: Performed By: #### L 500.2500, L100.0100 ####[facility] [address] [place], [address] MCH (RBC) [Entitic mass] 29.0 pg Normal 27.0-32.0 [facility] Comment on above: Performed By: #### L 500.2500, L100.0100 ####[facility] [address] [place], [address] MCHC (RBC) [Mass/Vol] 31.8 g/dL Low 32-36 [facility] Comment on above: Performed By: #### L 500.2500, L100.0100 ####[facility] [address] [place], [address] MCV (RBC) [Entitic vol] 91.1 fL Normal 81-99 [facility] Comment on above: Performed By: #### L 500.2500, L100.0100 ####[facility] [address] [place], [address] Monocytes/100 WBC (Bld) 8.8 % Normal 0-10 [facility] Comment on above: Performed By: #### L 500.2500, L100.0100 ####[facility] [address] [place], [address] Neutrophils/100 WBC (Bld) 65.1 % Normal 47-70 [facility] Comment on above: Performed By: #### L 500.2500, L100.0100 ####[facility] [address] [place], [address] Nucleated RBC (Bld) [#/Vol] 0 10*3/uL Normal 0-5 [facility] Comment on above: Performed By: #### L 500.2500, L100.0100 ####[facility] [address] [place], [address] Platelet mean volume (Bld) [Entitic vol] 10.3 fL Normal 6.2-12.0 [facility] Comment on above: Performed By: #### L 500.2500, L100.0100 ####[facility] [address] [place], [address] Platelets (Bld) [#/Vol] 105 10*3/uL Low 150-450 [facility] Comment on above: Performed By: #### L 500.2500, L100.0100 ####[facility] [address] [place], [address] RBC (Bld) [#/Vol] 3.59 10*6/uL Low 4.2-5.4 [facility] Comment on above: Performed By: #### L 500.2500, L100.0100 ####[facility] [address] [place], [address] RDW SD 48.3 fl High 35.1-43.9 [facility] Comment on above: Performed By: #### L 500.2500, L100.0100 ####[facility] [address] [place], [address] WBC (Bld) [#/Vol] 5.8 10*3/uL Normal 4.4-11.0 [facility] Comment on above: Performed By: #### L 500.2500, L100.0100 ####[facility] [address] [place], [place], [id number] Consultation - Infectious Dx on 11-23-2024 Consultation - Infectious Dx Normal [facility] Culture, Blood (WB)on 2024 CUB Normal [facility] Comment on above: Performed By: #### L 503.6005, L100.0100, L300.3900, L300.4310, M200.1000, M100.636, L500.4050 ####[facility] [address] [place], [place], [id number] Echo Transesophageal (KANDY)on 11-23-2024 Echo Transesophageal (KANDY) Normal [facility] Transesophageal echocardiogr am reportOrdered By: Jean Trujillo on 11-23-2024 Study report [facility] Work Phone: Vancomycin, Trough Levelon 0 11-23-2024 VANCO, TROUGH 18.3 ug/mL High 5.0-15.0 [facility] Comment on above: Order Comment: Comme nts: Trough to be drawn 30 mins prior to scheduled [id number] Result Comment: Be mmended goal trough ranges [...] therapy recommended for serious lifethreatening infections include:- Cpebzvhtcv-Wxtscoddwrnp-Oidcydagu (Ventilator/Healtcare Associated)-SepsisPLEASE CONTACT PHARMACY SERVICES (#6377) FOR INTERPRETATIONOF RESULTS. Performed By: #### L 501.8820 ####[facility] [address] [place], [place], [id number] Basic Metabolic Profile (BMP )on 11-22-2024 BUN/CRE 13.0 RATIO Normal 10-20 [facility] Comment on above: Performed By: #### L 100.0100, L500.2500 ####[facility] [address] [place], [address] Calcium [Mass/Vol] 7.8 mg/dL Normal 7.6-11.0 [facility] Comment on above: Performed By: #### L 100.0100, L500.2500 ####[facility] [address] [place], [address] Chloride [Moles/Vol] 108 mmol/L Normal 98-108 [facility] Comment on above: Performed By: #### L 100.0100, L500.2500 ####[facility] [address] [place], [address] CO2 [Moles/Vol] 21.5 mmol/L Normal 21.0-32.0 [facility] Comment on above: Performed By: #### L 100.0100, L500.2500 ####[facility] [address] [place], [address] Creatinine [Mass/Vol] 0.70 mg/dL Normal 0.70-1.20 [facility] Comment on above: Performed By: #### L 100.0100, L500.2500 ####[facility] [address] [place], [address] ECRCL 121.42 ml/min Normal 50-250 [facility] Comment on above: Performed By: #### L 100.0100, L500.2500 ####[facility] [address] [place], [address] GAP 8 Normal 5-15 [facility] Comment on above: Performed By: #### L 100.0100, L500.2500 ####[facility] [address] [place], [address] GFR/1.73 sq M.predicted among non-blacks MDRD (S/P/Bld) [Vol rate/Area] 100 mL/min/{1.73_m2} Normal >60 [facility] Comment on above: Result Comment: mL/m in/1.73m2 CKD-EPI Creatinine Equation (2020) Performed By: #### L 100.0100, L500.2500 ####[facility] [address] [place], [address] Glucose [Mass/Vol] 184 mg/dL High 70-99 [facility] Comment on above: Performed By: #### L 100.0100, L500.2500 ####[facility] [address] [place], [address] Potassium [Moles/Vol] 3.6 mmol/L Normal 3.3-5.1 [facility] Comment on above: Performed By: #### L 100.0100, L500.2500 ####[facility] [address] [place], [address] Sodium [Moles/Vol] 138 mmol/L Normal 133-145 [facility] Comment on above: Performed By: #### L 100.0100, L500.2500 ####[facility] [address] [place], [address] Urea nitrogen [Mass/Vol] 9 mg/dL Normal 4-19 [facility] Comment on above: Performed By: #### L 100.0100, L500.2500 ####[facility] [address] [place], [address] Bedside Glucoseon 11-22-2024 FINGERSTICK GLU 85 mg/dL Normal 74-106 [facility] Comment on above: Result Comment: ELLIOTT ESTRADA OF PATIENT CARE PER NURSING PROTOCOL Performed By: #### L 501.080 ####[facility] [address] [place], [address] FINGERSTICK GLU 179 mg/dL High 74-106 [facility] Comment on above: Result Comment: ELLIOTT GEMENT OF PATIENT CARE PER NURSING PROTOCOL Performed By: #### L 501.080 ####[facility] [address] [place], [address] FINGERSTICK GLU 198 mg/dL High 74-106 [facility] Comment on above: Result Comment: ELLIOTT GEMENT OF PATIENT CARE PER NURSING PROTOCOL Performed By: #### L 501.080 ####[facility] [address] [place], [address] FINGERSTICK GLU 177 mg/dL High 74-106 [facility] Comment on above: Result Comment: ELLIOTT GEMENT OF PATIENT CARE PER NURSING PROTOCOL Performed By: #### L 501.080 ####[facility] [address] [place], [address] CBC W/Diff, Automatedon 05-1 -2024 Absolute Lymph 1.35 X10 3/uL Normal 0.83-4.51 [facility] Comment on above: Performed By: #### L 100.0100, L500.2500 ####[facility] [address] [place], [address] Absolute Neut 4.2 X10 3/uL Normal 2.0-7.7 [facility] Comment on above: Performed By: #### L 100.0100, L500.2500 ####[facility] [address] [place], [address] Basophils/100 WBC (Bld) 0.5 % Normal 0-1 [facility] Comment on above: Performed By: #### L 100.0100, L500.2500 ####[facility] [address] [place], [address] Eosinophils/100 WBC (Bld) 0.6 % Normal 0-5 [facility] Comment on above: Performed By: #### L 100.0100, L500.2500 ####[facility] [address] [place], [address] Erythrocyte distribution width (RBC) [Ratio] 14.3 % Normal 11.6-14.6 [facility] Comment on above: Performed By: #### L 100.0100, L500.2500 ####[facility] [address] [place], [address] Hematocrit (Bld) [Volume fraction] 32.4 % Low 37-47 [facility] Comment on above: Performed By: #### L 100.0100, L500.2500 ####[facility] [address] [place], [address] Hemoglobin (Bld) [Mass/Vol] 10.6 g/dL Low 12.0-15.0 [facility] Comment on above: Performed By: #### L 100.0100, L500.2500 ####[facility] [address] [place], [address] IG% 0.800 Normal 0.0-0.9 [facility] Comment on above: Result Comment: IG% - Immature Granulocytes (promyelocytes, myelocytes andmetamyelocytes) > 1% indicates that a LEFT SHIFT is Present. Performed By: #### L 100.0100, L500.2500 ####[facility] [address] [place], [address] Lymphocytes/100 WBC (Bld) 21.6 % Normal 19-41 [facility] Comment on above: Performed By: #### L 100.0100, L500.2500 ####[facility] [address] [place], [address] MCH (RBC) [Entitic mass] 29.7 pg Normal 27.0-32.0 [facility] Comment on above: Performed By: #### L 100.0100, L500.2500 ####[facility] [address] [place], [address] MCHC (RBC) [Mass/Vol] 32.7 g/dL Normal 32-36 [facility] Comment on above: Performed By: #### L 100.0100, L500.2500 ####[facility] [address] [place], [address] MCV (RBC) [Entitic vol] 90.8 fL Normal 81-99 [facility] Comment on above: Performed By: #### L 100.0100, L500.2500 ####[facility] [address] [place], [address] Monocytes/100 WBC (Bld) 9.1 % Normal 0-10 [facility] Comment on above: Performed By: #### L 100.0100, L500.2500 ####[facility] [address] [place], [address] Neutrophils/100 WBC (Bld) 67.4 % Normal 47-70 [facility] Comment on above: Performed By: #### L 100.0100, L500.2500 ####[facility] [address] [place], [address] Nucleated RBC (Bld) [#/Vol] 0 10*3/uL Normal 0-5 [facility] Comment on above: Performed By: #### L 100.0100, L500.2500 ####[facility] [address] [place], [address] Platelet mean volume (Bld) [Entitic vol] 10.0 fL Normal 6.2-12.0 [facility] Comment on above: Performed By: #### L 100.0100, L500.2500 ####[facility] [address] [place], [address] Platelets (Bld) [#/Vol] 102 10*3/uL Low 150-450 [facility] Comment on above: Performed By: #### L 100.0100, L500.2500 ####[facility] [address] [place], [address] RBC (Bld) [#/Vol] 3.57 10*6/uL Low 4.2-5.4 [facility] Comment on above: Performed By: #### L 100.0100, L500.2500 ####[facility] [address] [place], [address] RDW SD 48.0 fl High 35.1-43.9 [facility] Comment on above: Performed By: #### L 100.0100, L500.2500 ####[facility] [address] [place], [address] WBC (Bld) [#/Vol] 6.2 10*3/uL Normal 4.4-11.0 [facility] Comment on above: Performed By: #### L 100.0100, L500.2500 ####[facility] [address] [place], [address] Consultation - Cardiologyon 11-22-2024 Consultation - Cardiology Normal [facility] Vancomycin, Trough Levelon 0 11-22-2024 VANCO, TROUGH 10.4 ug/mL Normal 5.0-15.0 [facility] Comment on above: Order Comment: Comme nts: [...] therapy recommended for serious lifethreatening infections include:- Touhuiroqp-Wcemrlpopitl-Fwybeclsx (Ventilator/Healtcare Associated)-SepsisPLEASE CONTACT PHARMACY SERVICES (#8391) FOR INTERPRETATIONOF RESULTS. Performed By: #### L 501.8820 ####[facility] [address] [place], [address] Basic Metabolic Profile (BMP )on 11-21-2024 BUN/CRE 15.4 RATIO Normal 10-20 [facility] Comment on above: Performed By: #### L 101.9900, L501.6710, L509.7001, L100.0100, L500.2500 ####[facility] [address] [place], [address] Calcium [Mass/Vol] 8.4 mg/dL Normal 7.6-11.0 [facility] Comment on above: Performed By: #### L 101.9900, L501.6710, L509.7001, L100.0100, L500.2500 ####[facility] [address] [place], [address] Chloride [Moles/Vol] 104 mmol/L Normal 98-108 [facility] Comment on above: Performed By: #### L 101.9900, L501.6710, L509.7001, L100.0100, L500.2500 ####[facility] [address] [place], [address] CO2 [Moles/Vol] 22.5 mmol/L Normal 21.0-32.0 [facility] Comment on above: Performed By: #### L 101.9900, L501.6710, L509.7001, L100.0100, L500.2500 ####[facility] [address] [place], [address] Creatinine [Mass/Vol] 0.87 mg/dL Normal 0.70-1.20 [facility] Comment on above: Performed By: #### L 101.9900, L501.6710, L509.7001, L100.0100, L500.2500 ####[facility] [address] [place], [address] ECRCL 99.31 ml/min Normal 50-250 [facility] Comment on above: Performed By: #### L 101.9900, L501.6710, L509.7001, L100.0100, L500.2500 ####[facility] [address] [place], [address] GAP 10 Normal 5-15 [facility] Comment on above: Performed By: #### L 101.9900, L501.6710, L509.7001, L100.0100, L500.2500 ####[facility] [address] [place], [address] GFR/1.73 sq M.predicted among non-blacks MDRD (S/P/Bld) [Vol rate/Area] 78 mL/min/{1.73_m2} Normal >60 [facility] Comment on above: Result Comment: mL/m in/1.73m2 CKD-EPI Creatinine Equation (2020) Performed By: #### L 101.9900, L501.6710, L509.7001, L100.0100, L500.2500 ####[facility] [address] [place], [address] Glucose [Mass/Vol] 266 mg/dL High 70-99 [facility] Comment on above: Performed By: #### L 101.9900, L501.6710, L509.7001, L100.0100, L500.2500 ####[facility] [address] [place], [address] Potassium [Moles/Vol] 4.0 mmol/L Normal 3.3-5.1 [facility] Comment on above: Performed By: #### L 101.9900, L501.6710, L509.7001, L100.0100, L500.2500 ####[facility] [address] [place], [address] Sodium [Moles/Vol] 136 mmol/L Normal 133-145 [facility] Comment on above: Performed By: #### L 101.9900, L501.6710, L509.7001, L100.0100, L500.2500 ####[facility] [address] [place], [address] Urea nitrogen [Mass/Vol] 13 mg/dL Normal 4-19 [facility] Comment on above: Performed By: #### L 101.9900, L501.6710, L509.7001, L100.0100, L500.2500 ####[facility] [address] [place], [address] Bedside Glucoseon 11-21-2024 FINGERSTICK GLU 252 mg/dL High [address] [place] [address] Comment on above: Result Comment: ELLIOTT GEMENT OF PATIENT CARE PER NURSING PROTOCOL Performed By: #### L 501.080 ####[facility] [address] [place], [address] FINGERSTICK GLU 314 mg/dL High [address] [place] [address] Comment on above: Result Comment: Dr Jose ledesma FollowedMANAGEMENT OF PATIENT CARE PER NURSING PROTOCOL Performed By: #### L 501.080 ####[facility] [address] [place], [address] FINGERSTICK GLU 300 mg/dL High -[address] [place] [address] Comment on above: Result Comment: Dr Jose ledesma FollowedMANAGEMENT OF PATIENT CARE PER NURSING PROTOCOL Performed By: #### L 501.080 ####[facility] [address] [place], [address] FINGERSTICK GLU 248 mg/dL High [address] [place] [address] Comment on above: Result Comment: ELLIOTT GEMENT OF PATIENT CARE PER NURSING PROTOCOL Performed By: #### L 501.080 ####[facility] [address] [place], [address] Blood cultureOrdered By: Vidhya Smith on 11-21-2024 Bacteria identified Cx Nom (Bld) No growth in 5 days. [facility] Bacteria identified Cx Nom (Bld) No growth in 5 days. [facility] CBC W/Diff, Automatedon 05 0-2024 Absolute Lymph 0.84 X10 3/uL Normal 0.83-4.51 [facility] Comment on above: Performed By: #### L 101.9900, L501.6710, L509.7001, L100.0100, L500.2500 ####[facility] [address] [place], [address] Absolute Neut 9.7 X10 3/uL High 2.0-7.7 [facility] Comment on above: Performed By: #### L 101.9900, L501.6710, L509.7001, L100.0100, L500.2500 ####[facility] [address] [place], [address] Basophils/100 WBC (Bld) 0.4 % Normal 0-1 [facility] Comment on above: Performed By: #### L 101.9900, L501.6710, L509.7001, L100.0100, L500.2500 ####[facility] [address] [place], [address] Eosinophils/100 WBC (Bld) 0.1 % Normal 0-5 [facility] Comment on above: Performed By: #### L 101.9900, L501.6710, L509.7001, L100.0100, L500.2500 ####[facility] [address] [place], [address] Erythrocyte distribution width (RBC) [Ratio] 14.4 % Normal 11.6-14.6 [facility] Comment on above: Performed By: #### L 101.9900, L501.6710, L509.7001, L100.0100, L500.2500 ####[facility] [address] [place], [address] Hematocrit (Bld) [Volume fraction] 34.4 % Low 37-47 [facility] Comment on above: Performed By: #### L 101.9900, L501.6710, L509.7001, L100.0100, L500.2500 ####[facility] [address] [place], [address] Hemoglobin (Bld) [Mass/Vol] 11.2 g/dL Low 12.0-15.0 [facility] Comment on above: Performed By: #### L 101.9900, L501.6710, L509.7001, L100.0100, L500.2500 ####[facility] [facility] [address] [place], [address] IG% 0.700 Normal 0.0-0.9 [facility] Comment on above: Result Comment: IG% - Immature Granulocytes (promyelocytes, myelocytes andmetamyelocytes) > 1% indicates that a LEFT SHIFT is Present. Performed By: #### L 101.9900, L501.6710, L509.7001, L100.0100, L500.2500 ####[facility] [address] [place], [address] Lymphocytes/100 WBC (Bld) 7.5 % Low 19-41 [facility] Comment on above: Performed By: #### L 101.9900, L501.6710, L509.7001, L100.0100, L500.2500 ####[facility] [address] [place], [address] MCH (RBC) [Entitic mass] 29.5 pg Normal 27.0-32.0 [facility] Comment on above: Performed By: #### L 101.9900, L501.6710, L509.7001, L100.0100, L500.2500 ####[facility] [address] [place], [address] MCHC (RBC) [Mass/Vol] 32.6 g/dL Normal 32-36 [facility] Comment on above: Performed By: #### L 101.9900, L501.6710, L509.7001, L100.0100, L500.2500 ####[facility] [address] [place], [address] MCV (RBC) [Entitic vol] 90.5 fL Normal 81-99 [facility] Comment on above: Performed By: #### L 101.9900, L501.6710, L509.7001, L100.0100, L500.2500 ####[facility] [address] [place], [address] Monocytes/100 WBC (Bld) 4.7 % Normal 0-10 [facility] Comment on above: Performed By: #### L 101.9900, L501.6710, L509.7001, L100.0100, L500.2500 ####[facility] [address] [place], [address] Neutrophils/100 WBC (Bld) 86.6 % High 47-70 [facility] Comment on above: Performed By: #### L 101.9900, L501.6710, L509.7001, L100.0100, L500.2500 ####[facility] [address] [place], [address] Nucleated RBC (Bld) [#/Vol] 0 10*3/uL Normal 0-5 [facility] Comment on above: Performed By: #### L 101.9900, L501.6710, L509.7001, L100.0100, L500.2500 ####[facility] [address] [place], [address] Platelet mean volume (Bld) [Entitic vol] 10.6 fL Normal 6.2-12.0 [facility] Comment on above: Performed By: #### L 101.9900, L501.6710, L509.7001, L100.0100, L500.2500 ####[facility] [address] [place], [address] Platelets (Bld) [#/Vol] 105 10*3/uL Low 150-450 [facility] Comment on above: Performed By: #### L 101.9900, L501.6710, L509.7001, L100.0100, L500.2500 ####[facility] [address] [place], [address] RBC (Bld) [#/Vol] 3.80 10*6/uL Low 4.2-5.4 [facility] Comment on above: Performed By: #### L 101.9900, L501.6710, L509.7001, L100.0100, L500.2500 ####[facility] [address] [place], [address] RDW SD 47.7 fl High 35.1-43.9 [facility] Comment on above: Performed By: #### L 101.9900, L501.6710, L509.7001, L100.0100, L500.2500 ####[facility] [address] [place], [address] WBC (Bld) [#/Vol] 11.2 10*3/uL High 4.4-11.0 [facility] Comment on above: Performed By: #### L 101.9900, L501.6710, L509.7001, L100.0100, L500.2500 ####[facility] [address] [place], [address] CRPon 11-21-2024 C-REACTIVE PROT 115.00 mg/L High 0.0-3.0 [facility] Comment on above: Performed By: #### L 101.9900, L501.6710, L509.7001, L100.0100, L500.2500 ####[facility] [address] [place], [address] Echocardiogram study reportO rdered By: Radha Dumont on 11-21-2024 Study report [facility] Work Phone: Erythrocyte Sed Rateon 11-21 SED RATE 26 mm/hr Normal 0-30 [facility] Comment on above: Performed By: #### L 101.9900, L501.6710, L509.7001, L100.0100, L500.2500 ####[facility] [address] [place], [address] Erythrocyte sedimentation ra teOrdered By: Mariah Brewer on 11-21-2024 ESR (Bld) [Velocity] 26 mm/h 0-30 [facility] L509.7001on 11-21-2024 Procalcitonin 8.24 ng/mL High <=0.10 [facility] Comment on above: Result Comment: Inte rpretation:<0.10-0.25 [...] #### L 101.9900, L501.6710, L509.7001, L100.0100, L500.2500 ####[facility] [address] [place], [address] Lactic Acidon 11-21-2024 Lactate [Moles/Vol] 1.5 mmol/L Normal 0.0-2.0 [facility] Comment on above: Order Comment: Y Performed By: #### L 503.6005 ####[facility] [address] [place], [place], [id number] Procalcitonin [Mass/volume] in Serum or Plasma by ImmunoassayOrdered By: Mariah Brewer on 11-21-2024 Procalcitonin IA [Mass/Vol] 8.24 ng/mL High <0.11 [facility] RESPIRATORY PANEL MOLECULARo n 11-21-2024 RP PANEL Normal [facility] Comment on above: Performed By: #### M 100.638 ####[facility] [address] [place], [place], [id number] Serum or plasma C reactive p rotein measurement (mass/volume)Ordered By: Mariah Brewer on 11-21-2024 CRP [Mass/Vol] 115.00 mg/L High 0.0-3.0 [facility] Urine Cultureon 11-21-2024 URC Culture exhibits no growth. Normal [facility] Comment on above: Performed By: #### M 100.2200, L400.0001, M100.678 ####[facility] [address] [place], [place], [id number] Abdomen/Pelvis W IV Cont ONL Yon 11-20-2024 Abdomen/Pelvis W IV Cont ONLY Normal [facility] Absolute lymphocyte countOrd ered By: Javy Saul on 11-20-2024 Lymphocytes Auto (Unsp spec) [#/Vol] 0.50 10*3/uL Low 0.83-4.51 [facility] Absolute neutrophil countOrd ered By: Javy Saul on 11-20-2024 Neutrophils (Bld) [#/Vol] 8.5 10*3/uL High 2.0-7.7 [facility] Activated partial thrombopla stin time (aPTT) in platelet poor plasma by coagulation aOrdered By: Javy Saul on 11-20-2024 aPTT Coag (PPP) [Time] 22.6 s Low 24.1-36.2 [facility] Anion gap in Serum or Plasma Ordered By: Javy Saul on 11-20-2024 Anion gap [Moles/Vol] 8 mmol/L 5-15 [facility] Automated lymphocyte count a s percentage of total leukocytesOrdered By: Javy Liangehne on 11-20-2024 Lymphocytes/100 WBC Auto (Unsp spec) 5.2 % Low 19-41 [facility] BUN/creatinine ratioOrdered By: Javy Dorys on 11-20-2024 Urea nitrogen/Creatinine [Mass ratio] 12.3 mg/mg 10-20 [facility] Basophil percentageOrdered B y: Javy Dorys on 11-20-2024 Basophils/100 WBC (Bld) 0.2 % 0-1 [facility] Bedside Glucoseon 11-20-2024 FINGERSTICK GLU 123 mg/dL High 74-106 [facility] Comment on above: Result Comment: ELLIOTT ESTRADA OF PATIENT CARE PER NURSING PROTOCOL Performed By: #### L 501.080 ####[facility] [address] [place], [place], [id number] Bilirubin Test strip Ql (U)O rdered By: Javy Dorys on 11-20-2024 Bilirubin Ql (U) Negative Negative [facility] Bilirubin, totalOrdered By: Javy Dorys on 11-20-2024 Bilirubin [Mass/Vol] 0.37 mg/dL 0.00-1.30 [facility] Blood cultureOrdered By: Evelio Saul on 11-20-2024 Bacteria identified Cx Nom (Bld) Staphylococcus aureus Abnormal [facility] Bacteria identified Cx Nom (Bld) Meth. resistant Staph. aureus Abnormal [facility] Brain/Head without Contrasto n 11-20-2024 Brain/Head without Contrast Normal [facility] CBC W/Diff, Automatedon Absolute Lymph 0.50 X10 3/uL Low 0.83-4.51 [facility] Comment on above: Performed By: #### L 503.6005, L100.0100, L300.3900, L300.4310, M200.1000, M100.636, L500.4050 ####[facility] [address] [place], [address] Absolute Neut 8.5 X10 3/uL High 2.0-7.7 [facility] Comment on above: Performed By: #### L 503.6005, L100.0100, L300.3900, L300.4310, M200.1000, M100.636, L500.4050 ####[facility] [address] [place], [address] Basophils/100 WBC (Bld) 0.2 % Normal 0-1 [facility] Comment on above: Performed By: #### L 503.6005, L100.0100, L300.3900, L300.4310, M200.1000, M100.636, L500.4050 ####[facility] [address] [place], [address] Eosinophils/100 WBC (Bld) 0.4 % Normal 0-5 [facility] Comment on above: Performed By: #### L 503.6005, L100.0100, L300.3900, L300.4310, M200.1000, M100.636, L500.4050 ####[facility] [address] [place], [address] Erythrocyte distribution width (RBC) [Ratio] 14.2 % Normal 11.6-14.6 [facility] Comment on above: Performed By: #### L 503.6005, L100.0100, L300.3900, L300.4310, M200.1000, M100.636, L500.4050 ####[facility] [address] [place], [address] Hematocrit (Bld) [Volume fraction] 38.8 % Normal 37-47 [facility] Comment on above: Performed By: #### L 503.6005, L100.0100, L300.3900, L300.4310, M200.1000, M100.636, L500.4050 ####[facility] [address] [place], [address] Hemoglobin (Bld) [Mass/Vol] 12.6 g/dL Normal 12.0-15.0 [facility] Comment on above: Performed By: #### L 503.6005, L100.0100, L300.3900, L300.4310, M200.1000, M100.636, L500.4050 ####[facility] [address] [place], [address] IG% 0.700 Normal 0.0-0.9 [facility] Comment on above: Result Comment: IG% - Immature Granulocytes (promyelocytes, myelocytes andmetamyelocytes) > 1% indicates that a LEFT SHIFT is Present. Performed By: #### L 503.6005, L100.0100, L300.3900, L300.4310, M200.1000, M100.636, L500.4050 ####[facility] [address] [place], [address] Lymphocytes/100 WBC (Bld) 5.2 % Low 19-41 [facility] Comment on above: Performed By: #### L 503.6005, L100.0100, L300.3900, L300.4310, M200.1000, M100.636, L500.4050 ####[facility] [address] [place], [address] MCH (RBC) [Entitic mass] 29.4 pg Normal 27.0-32.0 [facility] Comment on above: Performed By: #### L 503.6005, L100.0100, L300.3900, L300.4310, M200.1000, M100.636, L500.4050 ####[facility] [address] [place], [address] MCHC (RBC) [Mass/Vol] 32.5 g/dL Normal 32-36 [facility] Comment on above: Performed By: #### L 503.6005, L100.0100, L300.3900, L300.4310, M200.1000, M100.636, L500.4050 ####[facility] [address] [place], [address] MCV (RBC) [Entitic vol] 90.4 fL Normal 81-99 [facility] Comment on above: Performed By: #### L 503.6005, L100.0100, L300.3900, L300.4310, M200.1000, M100.636, L500.4050 ####[facility] [address] [place], [address] Monocytes/100 WBC (Bld) 4.1 % Normal 0-10 [facility] Comment on above: Performed By: #### L 503.6005, L100.0100, L300.3900, L300.4310, M200.1000, M100.636, L500.4050 ####[facility] [address] [place], [address] Neutrophils/100 WBC (Bld) 89.4 % High 47-70 [facility] Comment on above: Performed By: #### L 503.6005, L100.0100, L300.3900, L300.4310, M200.1000, M100.636, L500.4050 ####[facility] [address] [place], [address] Nucleated RBC (Bld) [#/Vol] 0 10*3/uL Normal 0-5 [facility] Comment on above: Performed By: #### L 503.6005, L100.0100, L300.3900, L300.4310, M200.1000, M100.636, L500.4050 ####[facility] [address] [place], [address] Platelet mean volume (Bld) [Entitic vol] 10.4 fL Normal 6.2-12.0 [facility] Comment on above: Performed By: #### L 503.6005, L100.0100, L300.3900, L300.4310, M200.1000, M100.636, L500.4050 ####[facility] [address] [place], [address] Platelets (Bld) [#/Vol] 148 10*3/uL Low 150-450 [facility] Comment on above: Performed By: #### L 503.6005, L100.0100, L300.3900, L300.4310, M200.1000, M100.636, L500.4050 ####[facility] [address] [place], [address] RBC (Bld) [#/Vol] 4.29 10*6/uL Normal 4.2-5.4 [facility] Comment on above: Performed By: #### L 503.6005, L100.0100, L300.3900, L300.4310, M200.1000, M100.636, L500.4050 ####[facility] [address] [place], [address] RDW SD 46.5 fl High 35.1-43.9 [facility] Comment on above: Performed By: #### L 503.6005, L100.0100, L300.3900, L300.4310, M200.1000, M100.636, L500.4050 ####[facility] [address] [place], [address] WBC (Bld) [#/Vol] 9.6 10*3/uL Normal 4.4-11.0 [facility] Comment on above: Performed By: #### L 503.6005, L100.0100, L300.3900, L300.4310, M200.1000, M100.636, L500.4050 ####[facility] [address] [place], [address] CRPon 11-20-2024 C-REACTIVE PROT 11.00 mg/L High 0.0-3.0 [facility] Comment on above: Performed By: #### L 501.6710, L101.9900, L509.7001 ####[facility] [address] [place], [address] Carbon dioxide, total [Moles /volume] in Central venous bloodOrdered By: Javy Saul on 11-20-2024 CO2 [Moles/Vol] 24.5 mmol/L 21.0-32.0 [facility] Chest 1 View (Portable)on Chest 1 View (Portable) Normal [facility] Chloride assayOrdered By: Romero Saul on 11-20-2024 Chloride [Moles/Vol] 100 mmol/L 98-108 [facility] Comprehensive Metabolic Prof ilon 11-20-2024 Albumin [Mass/Vol] 3.7 g/dL Normal 3.5-5.0 [facility] Comment on above: Performed By: #### L 503.6005, L100.0100, L300.3900, L300.4310, M200.1000, M100.636, L500.4050 ####[facility] [address] [place], [address] Albumin/Globulin [Mass ratio] 1.1 {ratio} Normal 0.9-2.4 [facility] Comment on above: Performed By: #### L 503.6005, L100.0100, L300.3900, L300.4310, M200.1000, M100.636, L500.4050 ####[facility] [address] [place], [address] ALK PHOS 175 U/L High 35-104 [facility] Comment on above: Performed By: #### L 503.6005, L100.0100, L300.3900, L300.4310, M200.1000, M100.636, L500.4050 ####[facility] [address] [place], [address] ALT [Catalytic activity/Vol] 26 U/L Normal <=34 [facility] Comment on above: Performed By: #### L 503.6005, L100.0100, L300.3900, L300.4310, M200.1000, M100.636, L500.4050 ####[facility] [address] [place], [address] AST [Catalytic activity/Vol] 24 U/L Normal <=31 [facility] Comment on above: Performed By: #### L 503.6005, L100.0100, L300.3900, L300.4310, M200.1000, M100.636, L500.4050 ####[facility] [address] [place], [address] Bilirubin [Mass/Vol] 0.37 mg/dL Normal 0.00-1.30 [facility] Comment on above: Performed By: #### L 503.6005, L100.0100, L300.3900, L300.4310, M200.1000, M100.636, L500.4050 ####[facility] [address] [place], [address] BUN/CRE 12.3 RATIO Normal 10-20 [facility] Comment on above: Performed By: #### L 503.6005, L100.0100, L300.3900, L300.4310, M200.1000, M100.636, L500.4050 ####[facility] [address] [place], [address] Calcium [Mass/Vol] 9.3 mg/dL Normal 7.6-11.0 [facility] Comment on above: Performed By: #### L 503.6005, L100.0100, L300.3900, L300.4310, M200.1000, M100.636, L500.4050 ####[facility] [address] [place], [address] Chloride [Moles/Vol] 100 mmol/L Normal 98-108 [facility] Comment on above: Performed By: #### L 503.6005, L100.0100, L300.3900, L300.4310, M200.1000, M100.636, L500.4050 ####[facility] [address] [place], [address] CO2 [Moles/Vol] 24.5 mmol/L Normal 21.0-32.0 [facility] Comment on above: Performed By: #### L 503.6005, L100.0100, L300.3900, L300.4310, M200.1000, M100.636, L500.4050 ####[facility] [address] [place], [address] Creatinine [Mass/Vol] 0.83 mg/dL Normal 0.70-1.20 [facility] Comment on above: Performed By: #### L 503.6005, L100.0100, L300.3900, L300.4310, M200.1000, M100.636, L500.4050 ####[facility] [address] [place], [address] ECRCL 104.64 ml/min Normal 50-250 [facility] Comment on above: Performed By: #### L 503.6005, L100.0100, L300.3900, L300.4310, M200.1000, M100.636, L500.4050 ####[facility] [address] [place], [address] GAP 8 Normal 5-15 [facility] Comment on above: Performed By: #### L 503.6005, L100.0100, L300.3900, L300.4310, M200.1000, M100.636, L500.4050 ####[facility] [address] [place], [address] GFR/1.73 sq M.predicted among non-blacks MDRD (S/P/Bld) [Vol rate/Area] 81 mL/min/{1.73_m2} Normal >60 [facility] Comment on above: Result Comment: mL/m in/1.73m2 CKD-EPI Creatinine Equation (2020) Performed By: #### L 503.6005, L100.0100, L300.3900, L300.4310, M200.1000, M100.636, L500.4050 ####[facility] [address] [place], [address] Globulin (S) [Mass/Vol] 3.4 g/dL Normal 2.2-4.2 [facility] Comment on above: Performed By: #### L 503.6005, L100.0100, L300.3900, L300.4310, M200.1000, M100.636, L500.4050 ####[facility] [address] [place], [address] Glucose [Mass/Vol] 263 mg/dL High 70-99 [facility] Comment on above: Performed By: #### L 503.6005, L100.0100, L300.3900, L300.4310, M200.1000, M100.636, L500.4050 ####[facility] [address] [place], [address] Potassium [Moles/Vol] 4.5 mmol/L Normal 3.3-5.1 [facility] Comment on above: Performed By: #### L 503.6005, L100.0100, L300.3900, L300.4310, M200.1000, M100.636, L500.4050 ####[facility] [address] [place], [place], [id number] Sodium [Moles/Vol] 132 mmol/L Low 133-145 [facility] Comment on above: Performed By: #### L 503.6005, L100.0100, L300.3900, L300.4310, M200.1000, M100.636, L500.4050 ####[facility] [address] [place], [place], [id number] T PROT 7.1 g/dL Normal 5.9-8.4 [facility] Comment on above: Performed By: #### L 503.6005, L100.0100, L300.3900, L300.4310, M200.1000, M100.636, L500.4050 ####[facility] [address] [place], [place], [id number] Urea nitrogen [Mass/Vol] 10 mg/dL Normal 4-19 [facility] Comment on above: Performed By: #### L 503.6005, L100.0100, L300.3900, L300.4310, M200.1000, M100.636, L500.4050 ####[facility] [address] [place], [place], [id number] Consultation - Intensiviston 11-20-2024 Consultation - Retail Presentation Specialist Normal [facility] Echo Complete W/ Contraston 11-20-2024 Echo Complete W/ Contrast Normal [facility] Emergency Department Summary on 11-20-2024 Emergency Department Summary Normal [facility] Eosinophil percentageOrdered By: Javy Saul on 11-20-2024 Eosinophils/100 WBC (Bld) 0.4 % 0-5 [facility] Erythrocyte Sed Rateon 11-20 SED RATE 19 mm/hr Normal 0-30 [facility] Comment on above: Performed By: #### L 501.6710, L101.9900, L509.7001 ####[facility] [address] [place], [address] Erythrocyte distribution wid th ratioOrdered By: Javy Saul on 11-20-2024 Erythrocyte distribution width (RBC) [Ratio] 14.2 % 11.6-14.6 [facility] Erythrocyte distribution wid th standard deviationOrdered By: Javy Saul on 11-20-2024 Erythrocyte distribution width (RBC) [Ratio] 46.5 fl High 35.1-43.9 [facility] Glomerular filtration rate ( GFR) estimation/1.73 sq m using serum, plasma, or whole bOrdered By: Javy Saul on 11-20-2024 GFR/1.73 sq M.predicted among non-blacks MDRD (S/P/Bld) [Vol rate/Area] 81 mL/min/{1.73_m2} >60 [facility] Comment on above: mL/min/1.73m2 CKD-EP I Creatinine Equation (2020) H AND P Exam - Hospitaliston 11-20-2024 H&P Exam - Hospitalist Normal [facility] Hematocrit Auto (Bld) [Volum e fraction]Ordered By: Javy Saul on 11-20-2024 Hematocrit (Bld) [Volume fraction] 38.8 % 37-47 [facility] Hemoglobin measurementOrdere d By: Javy Saul on 11-20-2024 Hemoglobin (Bld) [Mass/Vol] 12.6 g/dL 12.0-15.0 [facility] Immature granulocytes/100 WB C Auto (Bld)Ordered By: Javy Saul on 11-20-2024 Immature granulocytes/100 WBC (Bld) 0.700 % 0.0-0.9 [facility] Comment on above: IG% - Immature Granu locytes (promyelocytes, myelocytes and metamyelocytes) > 1% indicates that a LEFT SHIFT is Present. Influenza virus A and B and SARS-CoV-2 (COVID-19) and Respiratory syncytial virus RNAOrdered By: Javy Saul on 11-20-2024 SARS-CoV-2 (COVID-19) RNA LUÍS+probe Ql (Unsp spec) [facility] International normalized rat io (INR) calculationOrdered By: Javy Saul on 11-20-2024 INR Coag (Bld) [Relative time] 1.0 {INR} [facility] Ketones Test strip Ql (U)Ord ered By: Javy Saul on 11-20-2024 Ketones Ql (U) Negative Negative [facility] L509.7001on 11-20-2024 Procalcitonin 0.10 ng/mL Normal <=0.10 [facility] Comment on above: Result Comment: Inte rpretation:<0.10-0.25 ng/mL: Antibiotic therapy discouraged. Bacterialinfection unlikely.0.25-0.50 ng/mL: Antibiotic therapy encouraged. Bacterialinfection possible.>0.50 ng/mL: Antibiotic therapy strongly encouraged.Suggestive of presence of bacterial infection.PCT should always be interpreted in the clinical context ofthe patient. Therefore, clinicians should use the PCTresults in conjunction with other laboratory findings andclinical signs of the patient. Performed By: #### L 501.6710, L101.9900, L509.7001 ####[facility] [address] [place], [address] Laboratory - Chemistry and C hemistry - challengeOrdered By: Javy Bryanne on 11-20-2024 AST [Catalytic activity/Vol] 24 U/L <32 [facility] Lactic Acidon 11-20-2024 Lactate [Moles/Vol] 2.4 mmol/L Invalid Interpretation Code 0.0-2.0 [facility] Comment on above: Result Comment: Crit ical Result(s) Called at: 2056 by: SONIA JANSEN TO GAIL Results read back by same. Performed By: #### L 503.6005 ####[facility] [address] [place], [place], [id number] Lactate [Moles/Vol] 2.4 mmol/L Invalid Interpretation Code 0.0-2.0 [facility] Comment on above: Order Comment: Y Result Comment: Crit ical Result(s) Called to Santos LEGER (ER): Manan:??Results read back by same. Performed By: #### L 503.6005, L100.0100, L300.3900, L300.4310, M200.1000, M100.636, L500.4050 ####[facility] [address] [place], [address] Lactic acid measurementOrder ed By: Javy Saul on 11-20-2024 Lactate [Moles/Vol] 2.4 mmol/L High 0.0-2.0 [facility] Comment on above: Critical Result(s) C alled to Santos LEGER (ER): by Mandi: Results read back by alonzo. M100.678on 11-20-2024 M100.678 Pending SARS-CoV-2 (COVID 19) Negative INFLUENZA A Negative INFLUENZA B Negative RSV PCR Negative Normal [facility] Comment on above: Performed By: #### M 100.2200, L400.0001, M100.678 ####[facility] [address] [place], [address] MCV (mean corpuscular volume ) determinationOrdered By: Javy Saul on 11-20-2024 MCV (RBC) [Entitic vol] 90.4 fL 81-99 [facility] Mean corpuscular hemoglobin (MCH) determinationOrdered By: Javy Saul on 11-20-2024 MCH (RBC) [Entitic mass] 29.4 pg 27.0-32.0 [facility] Mean corpuscular hemoglobin concentration (MCHC) determinationOrdered By: Javy Saul on 11-20-2024 MCHC (RBC) [Mass/Vol] 32.5 g/dL 32-36 [facility] Mean platelet volume determi nationOrdered By: Javy Saul on 11-20-2024 Platelet mean volume (Bld) [Entitic vol] 10.4 fL 6.2-12.0 [facility] Microscopic analysis of urin e for red blood cells (RBC)Ordered By: Javy Saul on 11-20-2024 Microscopic analysis of urine for red blood cells (RBC) 0-5 SEEN /hpf 0-5 [facility] Monocyte percentageOrdered B y: Javy Saul on 11-20-2024 Monocytes/100 WBC (Bld) 4.1 % 0-10 [facility] Mucus LM Ql (Urine sed)Order ed By: Javy Saul on 11-20-2024 Mucus Ql (Urine sed) 0 SEEN /hpf [facility] Neutrophil percentageOrdered By: Javy Saul on 11-20-2024 Neutrophils/100 WBC (Bld) 89.4 % High 47-70 [facility] Nitrite Test strip Ql (U)Ord ered By: Javy Saul on 11-20-2024 Nitrite Ql (U) Negative Negative [facility] No Panel InformationOrdered By: Javy Saul on 11-20-2024 24 U/L <32 [facility] Nucleated red blood cell per centageOrdered By: Javy Saul on 11-20-2024 Nucleated RBC/100 WBC (Bld) [Ratio] 0 % 0-5 [facility] Organism identificationOrder ed By: Javy Saul on 11-20-2024 Microorganism identified Cx Nom (Unsp spec) Meth. resistant Staph. aureus Abnormal [facility] Partial Thromboplast Timeon 11-20-2024 aPTT Coag (Bld) [Time] 22.6 s Low 24.1-36.2 [facility] Comment on above: Performed By: #### L 503.6005, L100.0100, L300.3900, L300.4310, M200.1000, M100.636, L500.4050 ####[facility] [address] [facility] [place], [place], [id number] Platelet countOrdered By: Romero Saul on 11-20-2024 Platelets (Bld) [#/Vol] 148 10*3/uL Low 150-450 [facility] Potassium measurement (mass/ volume)Ordered By: Javy Saul on 11-20-2024 Potassium (Unsp spec) [Mass/Vol] 4.5 mmol/L 3.3-5.1 [facility] Protein Test strip Ql (U)Ord ered By: Javy Saul on 11-20-2024 Protein Ql (U) Negative Negative [facility] Prothrombin Time w/INRon INR Coag (PPP) [Relative time] 1.0 {INR} Normal [facility] Comment on above: Performed By: #### L 503.6005, L100.0100, L300.3900, L300.4310, M200.1000, M100.636, L500.4050 ####[facility] [address] [place], [place], [id number] PT Coag (PPP) [Time] 13.6 s Normal 11.7-14.9 [facility] Comment on above: Performed By: #### L 503.6005, L100.0100, L300.3900, L300.4310, M200.1000, M100.636, L500.4050 ####[facility] [address] [place], [place], [id number] Prothrombin timeOrdered By: Javy Saul on 11-20-2024 PT Coag (PPP) [Time] 13.6 s 11.7-14.9 [facility] RBC Auto (Bld) [#/Vol]Ordere d By: Javy Saul on 11-20-2024 RBC (Bld) [#/Vol] 4.29 10*6/uL 4.2-5.4 [facility] Respiratory pathogens detect ion panel by molecular detection methodOrdered By: Mariah Brewer on 11-20-2024 Respiratory pathogens DNA and RNA panel LUÍS+probe (Resp) [facility] Serum creatinine measurement (mass/volume)Ordered By: Javy Saul on 11-20-2024 Creatinine [Mass/Vol] 0.83 mg/dL 0.70-1.20 [facility] Serum globulin measurementOr dered By: Javy Saul on 11-20-2024 Globulin (S) [Mass/Vol] 3.4 g/dL 2.2-4.2 [facility] Serum glucose measurement (m ass/volume)Ordered By: Javy Saul on 11-20-2024 Glucose [Mass/Vol] 263 mg/dL High 70-99 [facility] Serum or plasma alanine guzman otransferase (ALT) measurementOrdered By: Javy Saul on 11-20-2024 ALT [Catalytic activity/Vol] 26 U/L <35 [facility] Serum or plasma albumin johnathon urement (mass/volume)Ordered By: Javy Saul on 11-20-2024 Albumin [Mass/Vol] 3.7 g/dL 3.5-5.0 [facility] Serum or plasma albumin/glob ulin mass ratioOrdered By: Javy Saul on 11-20-2024 Albumin/Globulin [Mass ratio] 1.1 {ratio} 0.9-2.4 [facility] Serum or plasma alkaline tabitha sphatase measurementOrdered By: Javy Saul on 11-20-2024 ALP [Catalytic activity/Vol] 175 U/L High 35-104 [facility] Serum or plasma calcium johnathon urement (mass/volume)Ordered By: Javy Saul on 11-20-2024 Calcium [Mass/Vol] 9.3 mg/dL 7.6-11.0 [facility] Serum or plasma urea nitroge n measurement (mass/volume)Ordered By: Javy Saul on 11-20-2024 Urea nitrogen [Mass/Vol] 10 mg/dL 4-19 [facility] Sodium levelOrdered By: Fransisco Saul on 11-20-2024 Sodium [Moles/Vol] 132 mmol/L Low 133-145 [facility] Spine Lumbar without Contras ton 11-20-2024 Spine Lumbar without Contrast Normal [facility] Squamous epithelial cells de tection in urine sediment by light microscopyOrdered By: Javy Saul on 11-20-2024 Epithelial cells.squamous LM Ql (Urine sed) 5-10 SEEN /hpf 5-10 [facility] Total proteinOrdered By: Evelio Saul on 11-20-2024 Protein [Mass/Vol] 7.1 g/dL 5.9-8.4 [facility] Urinalysis, Completeon 11-20 BACTERIA RARE Normal None Seen [facility] Comment on above: Order Comment: MAGEN TER SPECIMEN Performed By: #### M 100.2200, L400.0001, M100.678 ####[facility] [address] [place], [address] EPI,SQUAMOUS 5-10 SEEN Normal 5-10 [facility] Comment on above: Order Comment: MAGEN TER SPECIMEN Performed By: #### M 100.2200, L400.0001, M100.678 ####[facility] [address] [place], [address] RBC 0-5 SEEN Normal 0-5 [facility] Comment on above: Order Comment: MAGEN TER SPECIMEN Performed By: #### M 100.2200, L400.0001, M100.678 ####[facility] [address] [place], [address] WBC 0-5 SEEN Normal 0-5 [facility] Comment on above: Order Comment: MAGEN TER SPECIMEN Performed By: #### M 100.2200, L400.0001, M100.678 ####[facility] [address] [place], [address] Mucus Ql (Urine sed) 0 SEEN Normal [facility] Comment on above: Order Comment: MAGEN TER SPECIMEN Performed By: #### M 100.2200, L400.0001, M100.678 ####[facility] [address] [place], [address] Urine clarityOrdered By: Evelio Saul on 11-20-2024 Clarity (U) Clear Clear [facility] Urine color determinationOrd ered By: Javy Saul on 11-20-2024 Color (U) Straw Yellow [facility] Urine cultureOrdered By: Evelio Saul on 11-20-2024 Bacteria identified Cx Nom (U) Culture exhibits no growth. [facility] Urine glucose detectionOrder ed By: Javy Saul on 11-20-2024 Glucose Ql (U) 1000 mg/dl High Normal [facility] Urine leukocyte esterase det ection by dipstickOrdered By: Javy Saul on 11-20-2024 Leukocyte esterase Test strip Ql (U) Negative Negative [facility] Urine pHOrdered By: Javy woodward on 11-20-2024 pH (U) 6.0 [pH] 5.0 - 8.0 [facility] Urine sediment bacteria coun t by microscopy (number/high power field)Ordered By: Javy Saul on 11-20-2024 Bacteria LM.HPF (Urine sed) [#/Area] RARE /hpf None Seen [facility] Urine specific gravity measu rementOrdered By: Javy Saul on 11-20-2024 Specific gravity (U) [Rel density] 1.015 1.002-1.030 [facility] Urine urobilinogen measureme ntOrdered By: Jvay Saul on 11-20-2024 Urobilinogen Ql (U) Normal mg/dl Normal [facility] White blood cell (WBC) count Ordered By: Javy Saul on 11-20-2024 WBC (Bld) [#/Vol] 9.6 10*3/uL 4.4-11.0 [facility] White blood cell countOrdere d By: Javy Saul on 11-20-2024 White blood cell count 0-5 SEEN /hpf 0-5 [facility] Pacemaker Checkon 11-09-2024 Pacemaker Check Normal [facility] Emergency Department Summary on 11-07-2024 Emergency Department Summary Normal [facility] Cardiology Visit Reporton Cardiology Visit Report Normal [facility] Internal Medicine Office Vis iton 10-18-2024 Internal Medicine Office Visit Normal [facility] Endocrinology Visit Reporton 10-15-2024 Endocrinology Visit Report Normal [facility] Laboratory - Hematology and Cell countsOrdered By: Lisseth Peñaloza on 09-07-2024 HbA1c (Bld) [Mass fraction] 10.7 % High 4.2-6.3 [facility] No Panel InformationOrdered By: Lisseth Peñaloza on 09-07-2024 10.7 % High 4.2-6.3 [facility] Internal Medicine Office Vis iton 09-06-2024 Internal Medicine Office Visit Normal [facility] Absolute lymphocyte countOrd ered By: Lisseth Peñaloza on 08-26-2024 Lymphocytes Auto (Unsp spec) [#/Vol] 1.28 10*3/uL 0.83-4.51 [facility] Absolute neutrophil countOrd ered By: Lisseth Peñaloza on 08-26-2024 Neutrophils (Bld) [#/Vol] 5.6 10*3/uL 2.0-7.7 [facility] Albumin to globulin ratioOrd ered By: Lisseth Peñaloza on 08-26-2024 Albumin/Globulin [Mass ratio] 0.8 {ratio} Low 0.9-2.4 [facility] Automated lymphocyte count a s percentage of total leukocytesOrdered By: Lisseth Peñaloza on 08-26-2024 Lymphocytes/100 WBC Auto (Unsp spec) 17.5 % Low 19-41 [facility] Basophil percentageOrdered B y: Lisseth Peñaloza on 08-26-2024 Basophils/100 WBC (Bld) 0.7 % 0-1 [facility] Bilirubin, totalOrdered By: Lisseth Peñaloza on 08-26-2024 Bilirubin [Mass/Vol] 0.20 mg/dL 0.20-1.00 [facility] Comment on above: For patients on eltr ombopag therapy, use of Dimension [place] TBIL is not recommended. Blood urea nitrogen (BUN)/cr eatinine ratioOrdered By: Lisseth Peñaloza on 08-26-2024 Urea nitrogen/Creatinine [Mass ratio] 18.6 mg/mg 10-20 [facility] CBC W/Diff, Automatedon 08-15 Absolute Lymph 1.28 X10 3/uL Normal 0.83-4.51 [facility] Comment on above: Performed By: #### L 500.4050, L509.6000, L100.0100, L506.1000, L500.4100 ####[facility] [address] [place], [place], [id number] Absolute Neut 5.6 X10 3/uL Normal 2.0-7.7 [facility] Comment on above: Performed By: #### L 500.4050, L509.6000, L100.0100, L506.1000, L500.4100 ####[facility] [address] [place], [address] Basophils/100 WBC (Bld) 0.7 % Normal 0-1 [facility] Comment on above: Performed By: #### L 500.4050, L509.6000, L100.0100, L506.1000, L500.4100 ####[facility] [address] [place], [address] Eosinophils/100 WBC (Bld) 1.0 % Normal 0-5 [facility] Comment on above: Performed By: #### L 500.4050, L509.6000, L100.0100, L506.1000, L500.4100 ####[facility] [address] [place], [address] Erythrocyte distribution width (RBC) [Ratio] 14.3 % Normal 11.6-14.6 [facility] Comment on above: Performed By: #### L 500.4050, L509.6000, L100.0100, L506.1000, L500.4100 ####[facility] [address] [place], [address] Hematocrit (Bld) [Volume fraction] 38.6 % Normal 37-47 [facility] Comment on above: Performed By: #### L 500.4050, L509.6000, L100.0100, L506.1000, L500.4100 ####[facility] [address] [place], [address] Hemoglobin (Bld) [Mass/Vol] 12.2 g/dL Normal 12.0-15.0 [facility] Comment on above: Performed By: #### L 500.4050, L509.6000, L100.0100, L506.1000, L500.4100 ####[facility] [address] [place], [address] IG% 0.400 Normal 0.0-0.9 [facility] Comment on above: Result Comment: IG% - Immature Granulocytes (promyelocytes, myelocytes andmetamyelocytes) > 1% indicates that a LEFT SHIFT is Present. Performed By: #### L 500.4050, L509.6000, L100.0100, L506.1000, L500.4100 ####[facility] [address] [place], [address] Lymphocytes/100 WBC (Bld) 17.5 % Low 19-41 [facility] Comment on above: Performed By: #### L 500.4050, L509.6000, L100.0100, L506.1000, L500.4100 ####[facility] [address] [place], [address] MCH (RBC) [Entitic mass] 28.9 pg Normal 27.0-32.0 [facility] Comment on above: Performed By: #### L 500.4050, L509.6000, L100.0100, L506.1000, L500.4100 ####[facility] [address] [place], [address] MCHC (RBC) [Mass/Vol] 31.6 g/dL Low 32-36 [facility] Comment on above: Performed By: #### L 500.4050, L509.6000, L100.0100, L506.1000, L500.4100 ####[facility] [address] [place], [address] MCV (RBC) [Entitic vol] 91.5 fL Normal 81-99 [facility] Comment on above: Performed By: #### L 500.4050, L509.6000, L100.0100, L506.1000, L500.4100 ####[facility] [address] [place], [address] Monocytes/100 WBC (Bld) 4.5 % Normal 0-10 [facility] Comment on above: Performed By: #### L 500.4050, L509.6000, L100.0100, L506.1000, L500.4100 ####[facility] [address] [place], [address] Neutrophils/100 WBC (Bld) 75.9 % High 47-70 [facility] Comment on above: Performed By: #### L 500.4050, L509.6000, L100.0100, L506.1000, L500.4100 ####[facility] [address] [place], [address] Nucleated RBC (Bld) [#/Vol] 0 10*3/uL Normal 0-5 [facility] Comment on above: Performed By: #### L 500.4050, L509.6000, L100.0100, L506.1000, L500.4100 ####[facility] [address] [place], [address] Platelet mean volume (Bld) [Entitic vol] 10.9 fL Normal 6.2-12.0 [facility] Comment on above: Performed By: #### L 500.4050, L509.6000, L100.0100, L506.1000, L500.4100 ####[facility] [address] [place], [address] Platelets (Bld) [#/Vol] 197 10*3/uL Normal 150-450 [facility] Comment on above: Performed By: #### L 500.4050, L509.6000, L100.0100, L506.1000, L500.4100 ####[facility] [address] [place], [address] RBC (Bld) [#/Vol] 4.22 10*6/uL Normal 4.2-5.4 [facility] Comment on above: Performed By: #### L 500.4050, L509.6000, L100.0100, L506.1000, L500.4100 ####[facility] [address] [place], [address] RDW SD 47.9 fl High 35.1-43.9 [facility] Comment on above: Performed By: #### L 500.4050, L509.6000, L100.0100, L506.1000, L500.4100 ####[facility] [address] [place], [address] WBC (Bld) [#/Vol] 7.3 10*3/uL Normal 4.4-11.0 [facility] Comment on above: Performed By: #### L 500.4050, L509.6000, L100.0100, L506.1000, L500.4100 ####[facility] [address] [place], [address] CORTISOL SERUMon 08-26-2024 CORTISOL 0.60 ug/dL Low 3.44-22.45 [facility] Comment on above: Result Comment: Adul t (AM) 5.27 - 22.45 ug/dL Adult (PM) 3.44 - 16.76 ug/dL Performed By: #### L 500.4050, L509.6000, L100.0100, L506.1000, L500.4100 ####[facility] [address] [place], [address] Carbon dioxide measurementOr dered By: Lisseth Peñaloza on 08-26-2024 CO2 [Moles/Vol] 28.0 mmol/L 21.0-32.0 [facility] Chloride measurementOrdered By: Lisseth Peñaloza on 08-26-2024 Chloride [Moles/Vol] 103 mmol/L 98-107 [facility] Comprehensive Metabolic Prof ilon 08-26-2024 Albumin [Mass/Vol] 3.3 g/dL Normal 3.2-5.0 [facility] Comment on above: Performed By: #### L 500.4050, L509.6000, L100.0100, L506.1000, L500.4100 ####[facility] [address] [place], [address] Albumin/Globulin [Mass ratio] 0.8 {ratio} Low 0.9-2.4 [facility] Comment on above: Performed By: #### L 500.4050, L509.6000, L100.0100, L506.1000, L500.4100 ####[facility] [address] [place], [address] ALK P 165 U/L High 45-117 [facility] Comment on above: Performed By: #### L 500.4050, L509.6000, L100.0100, L506.1000, L500.4100 ####[facility] [address] [place], [address] ALT [Catalytic activity/Vol] 31 U/L Normal 13-56 [facility] Comment on above: Performed By: #### L 500.4050, L509.6000, L100.0100, L506.1000, L500.4100 ####[facility] [address] [place], [address] AST [Catalytic activity/Vol] 19 U/L Normal 15-37 [facility] Comment on above: Performed By: #### L 500.4050, L509.6000, L100.0100, L506.1000, L500.4100 ####[facility] [address] [place], [address] Bilirubin [Mass/Vol] 0.20 mg/dL Normal 0.20-1.00 [facility] Comment on above: Result Comment: For patients on eltrombopag therapy, use of Dimension [place] TBIL is not recommended. Performed By: #### L 500.4050, L509.6000, L100.0100, L506.1000, L500.4100 ####[facility] [address] [place], [address] BUN/CRE 18.6 RATIO Normal 10-20 [facility] Comment on above: Performed By: #### L 500.4050, L509.6000, L100.0100, L506.1000, L500.4100 ####[facility] [address] [place], [address] CA,Total 9.3 mg/dL Normal 8.5-10.1 [facility] Comment on above: Performed By: #### L 500.4050, L509.6000, L100.0100, L506.1000, L500.4100 ####[facility] [address] [place], [address] Chloride [Moles/Vol] 103 mmol/L Normal 98-107 [facility] Comment on above: Performed By: #### L 500.4050, L509.6000, L100.0100, L506.1000, L500.4100 ####[facility] [address] [place], [address] CO2 [Moles/Vol] 28.0 mmol/L Normal 21.0-32.0 [facility] Comment on above: Performed By: #### L 500.4050, L509.6000, L100.0100, L506.1000, L500.4100 ####[facility] [address] [place], [address] Creatinine [Mass/Vol] 0.86 mg/dL Normal 0.55-1.02 [facility] Comment on above: Result Comment: The validity of the calculated GFR GFRAA in patients over70 years has not been determined. Clinical correlation isessential. Performed By: #### L 500.4050, L509.6000, L100.0100, L506.1000, L500.4100 ####[facility] [address] [place], [address] EST GFR - AA 87 mL/min Normal >60 [facility] Comment on above: Result Comment: Afri can [place] GFR Calc Performed By: #### L 500.4050, L509.6000, L100.0100, L506.1000, L500.4100 ####[facility] [address] [place], [address] GAP 6 Normal 5-15 [facility] Comment on above: Performed By: #### L 500.4050, L509.6000, L100.0100, L506.1000, L500.4100 ####[facility] [address] [place], [address] GFR/1.73 sq M.predicted among non-blacks MDRD (S/P/Bld) [Vol rate/Area] 72 mL/min/{1.73_m2} Normal >60 [facility] Comment on above: Result Comment: Non- GFR Calc Performed By: #### L 500.4050, L509.6000, L100.0100, L506.1000, L500.4100 ####[facility] [address] [place], [address] Globulin (S) [Mass/Vol] 4.1 g/dL Normal 2.2-4.2 [facility] Comment on above: Performed By: #### L 500.4050, L509.6000, L100.0100, L506.1000, L500.4100 ####[facility] [address] [place], [address] Glucose [Mass/Vol] 281 mg/dL High 74-106 [facility] Comment on above: Result Comment: Gluc ose result greater than or equal to 200 mg/dLsuggests DIABETES MELLITUS per A.D.A. criteria. Performed By: #### L 500.4050, L509.6000, L100.0100, L506.1000, L500.4100 ####[facility] [address] [place], [address] Potassium [Moles/Vol] 4.6 mmol/L Normal 3.5-5.1 [facility] Comment on above: Performed By: #### L 500.4050, L509.6000, L100.0100, L506.1000, L500.4100 ####[facility] [address] [place], [address] Sodium [Moles/Vol] 137 mmol/L Normal 136-145 [facility] Comment on above: Performed By: #### L 500.4050, L509.6000, L100.0100, L506.1000, L500.4100 ####[facility] [address] [place], [address] T PROT 7.4 g/dL Normal 6.4-8.2 [facility] Comment on above: Performed By: #### L 500.4050, L509.6000, L100.0100, L506.1000, L500.4100 ####[facility] [address] [place], [address] Urea nitrogen [Mass/Vol] 16 mg/dL Normal 7-18 [facility] Comment on above: Performed By: #### L 500.4050, L509.6000, L100.0100, L506.1000, L500.4100 ####[facility] [address] [place], [address] Eosinophil percentageOrdered By: Lisseth Peñaloza on 08-26-2024 Eosinophils/100 WBC (Bld) 1.0 % 0-5 [facility] Erythrocyte distribution wid th ratioOrdered By: Lisseth Peñaloza on 08-26-2024 Erythrocyte distribution width (RBC) [Ratio] 14.3 % 11.6-14.6 [facility] Erythrocyte distribution wid th standard deviationOrdered By: Lisseth Peñaloza on 08-26-2024 Erythrocyte distribution width (RBC) [Ratio] 47.9 fl High 35.1-43.9 [facility] Glomerular filtration rate ( GFR) estimationOrdered By: Lisseth Peñaloza on 08-26-2024 GFR/1.73 sq M.predicted among non-blacks MDRD (S/P/Bld) [Vol rate/Area] 72 mL/min/{1.73_m2} >60 [facility] Comment on above: Non- GFR Calc Glucose measurementOrdered B y: Lisseth Peñaloza on 08-26-2024 Glucose [Mass/Vol] 281 mg/dL High 74-106 [facility] Comment on above: Glucose result great er than or equal to 200 mg/dLsuggests DIABETES MELLITUS per A.D.A. criteria. Hematocrit Auto (Bld) [Volum e fraction]Ordered By: Lisseth Peñaloza on 08-26-2024 Hematocrit (Bld) [Volume fraction] 38.6 % 37-47 [facility] Hemoglobin measurementOrdere d By: Lisseth Peñaloza on 08-26-2024 Hemoglobin (Bld) [Mass/Vol] 12.2 g/dL 12.0-15.0 [facility] High density lipoprotein (HD L) measurementOrdered By: Lisseth Peñaloza on 08-26-2024 Cholesterol in HDL [Mass/Vol] 54 mg/dL >40 [facility] Comment on above: The drugs N-Acetylcy steine and Metamizole may falsely depress this assay. Reference Range HDL <40 mg/dL Low HDL Cholesterol HDL >or= 60 mg/dL High HDL Cholesterol High density lipoprotein (HDL) measurement 54 mg/dL >40 [facility] Immature granulocytes/100 WB C Auto (Bld)Ordered By: Lisseth Peñaloza on 08-26-2024 Immature granulocytes/100 WBC (Bld) 0.400 % 0.0-0.9 [facility] Comment on above: IG% - Immature Granu locytes (promyelocytes, myelocytes and metamyelocytes) > 1% indicates that a LEFT SHIFT is Present. Laboratory - Chemistry and C hemistry - challengeOrdered By: Lisseth Peñaloza on 08-26-2024 AST [Catalytic activity/Vol] 19 U/L 15-37 [facility] Lipid Profileon 08-26-2024 Cholesterol [Mass/Vol] 155 mg/dL Normal 200 [facility] Comment on above: Result Comment: <200 mg/dL Desirable 200-240 mg/dL Borderline >240 mg/dL High Risk Performed By: #### L 500.4050, L509.6000, L100.0100, L506.1000, L500.4100 ####[facility] [address] [place], [address] Cholesterol in HDL [Mass/Vol] 54 mg/dL Normal [facility] Comment on above: Result Comment: The drugs N-Acetylcysteine and Metamizole may falselydepress this assay. Reference Range HDL <40 mg/dL Low HDL Cholesterol HDL >or= 60 mg/dL High HDL Cholesterol Performed By: #### L 500.4050, L509.6000, L100.0100, L506.1000, L500.4100 ####[facility] [address] [place], [address] Cholesterol in LDL [Mass/Vol] 81 mg/dL Normal 0-130 [facility] Comment on above: Performed By: #### L 500.4050, L509.6000, L100.0100, L506.1000, L500.4100 ####[facility] [address] [place], [address] Cholesterol in VLDL [Mass/Vol] 20 mg/dL Normal 5-40 [facility] Comment on above: Performed By: #### L 500.4050, L509.6000, L100.0100, L506.1000, L500.4100 ####[facility] [address] [place], [address] Triglyceride [Mass/Vol] 99 mg/dL Normal [facility] Comment on above: Result Comment: The drugs N-Acetylcysteine and Metamizole may falselydepress this assay.Serum Triglycerides Reference Interval Normal <150 mg/dL Borderline high 150 - 199 mg/dL High 200 - 499 mg/dL Very High > or = 500 mg/dL Performed By: #### L 500.4050, L509.6000, L100.0100, L506.1000, L500.4100 ####[facility] [address] [place], [place], [id number] Low density lipoprotein (LDL ) cholesterol measurementOrdered By: Lisseth Peñaloza on 08-26-2024 Cholesterol in LDL [Mass/Vol] 81 mg/dL 0-130 [facility] Low density lipoprotein (LDL) cholesterol measurement 81 mg/dL 0-130 [facility] MCV (mean corpuscular volume ) determinationOrdered By: Lisseth Peñaloza on 08-26-2024 MCV (RBC) [Entitic vol] 91.5 fL 81-99 [facility] Mean corpuscular hemoglobin (MCH) determinationOrdered By: Lisseth Peñaloza on 08-26-2024 MCH (RBC) [Entitic mass] 28.9 pg 27.0-32.0 [facility] Mean corpuscular hemoglobin concentration (MCHC) determinationOrdered By: Lisseth Peñaloza on 08-26-2024 MCHC (RBC) [Mass/Vol] 31.6 g/dL Low 32-36 [facility] Mean platelet volume determi nationOrdered By: Lisseth Peñaloza on 08-26-2024 Platelet mean volume (Bld) [Entitic vol] 10.9 fL 6.2-12.0 [facility] Microalb:Creat Ratio,Random URon 08-26-2024 Creatinine [Mass/Vol] 59.50 mg/dL Normal NO RANGE EST. [facility] Comment on above: Performed By: #### L 502.0250 ####[facility] [address] [place], [place], [id number] MALB:CRE 10.8 mg/g CRE Normal <30 mg/g CRE [facility] Comment on above: Performed By: #### L 502.0250 ####[facility] [address] [place], [place], [id number] MICROALBUMIN,UR 6.4 mg/L Normal NO RANGE EST. [facility] Comment on above: Performed By: #### L 502.0250 ####[facility] [address] [place], [address] Monocyte percentageOrdered B y: Lisseth Peñaloza on 08-26-2024 Monocytes/100 WBC (Bld) 4.5 % 0-10 [facility] Neutrophil percentageOrdered By: Lisseth Peñaloza on 08-26-2024 Neutrophils/100 WBC (Bld) 75.9 % High 47-70 [facility] No Panel InformationOrdered By: Lisseth Peñaloza on 08-26-2024 19 U/L 15-37 [facility] Nucleated red blood cell per centageOrdered By: Lisseth Peñaloza on 08-26-2024 Nucleated RBC/100 WBC (Bld) [Ratio] 0 % 0-5 [facility] Platelet countOrdered By: Billy Peñaloza on 08-26-2024 Platelets (Bld) [#/Vol] 197 10*3/uL 150-450 [facility] Potassium measurementOrdered By: Lisseth Peñaloza on 08-26-2024 Potassium [Moles/Vol] 4.6 mmol/L 3.5-5.1 [facility] RBC Auto (Bld) [#/Vol]Ordere d By: Lisseth Peñaloza on 08-26-2024 RBC (Bld) [#/Vol] 4.22 10*6/uL 4.2-5.4 [facility] Serum anion gap measurementO rdered By: Lisseth Peñaloza on 08-26-2024 Anion gap [Moles/Vol] 6 mmol/L 5-15 [facility] Serum globulin measurementOr dered By: Lisseth Peñaloza on 08-26-2024 Globulin (S) [Mass/Vol] 4.1 g/dL 2.2-4.2 [facility] Serum or plasma alanine guzman otransferase (ALT) measurementOrdered By: Lisseth Peñaloza on 08-26-2024 ALT [Catalytic activity/Vol] 31 U/L 13-56 [facility] Serum or plasma albumin johnathon urement (mass/volume)Ordered By: Lisseth Peñaloza on 08-26-2024 Albumin [Mass/Vol] 3.3 g/dL 3.2-5.0 [facility] Serum or plasma alkaline tabitha sphatase measurementOrdered By: Lisseth Peñaloza on 08-26-2024 ALP [Catalytic activity/Vol] 165 U/L High 45-117 [facility] Serum or plasma calcium johnathon urement (mass/volume)Ordered By: Lisseth Peñaloza on 08-26-2024 Calcium [Mass/Vol] 9.3 mg/dL 8.5-10.1 [facility] Serum or plasma cholesterol measurement (mass/volume)Ordered By: Lisseth Peñaloza on 08-26-2024 Cholesterol [Mass/Vol] 155 mg/dL <200 [facility] Comment on above: <200 mg/dL Desirable 200-240 mg/dL Borderline >240 mg/dL High Risk Serum or plasma cortisol tarun surement (mass/volume)Ordered By: Lisseth Peñaloza on 08-26-2024 Cortisol [Mass/Vol] 0.60 ug/dL Low 3.44-22.45 [facility] Comment on above: Adult (AM) 5.27 - 22 .45 ug/dL Adult (PM) 3.44 - 16.76 ug/dL Serum or plasma creatinine m easurement (mass/volume)Ordered By: Lisseth Peñaloza on 08-26-2024 Creatinine [Mass/Vol] 0.86 mg/dL 0.55-1.02 [facility] Comment on above: The validity of the calculated GFR & GFRAA in patients over 70 years has not been determined. Clinical correlation is essential. Serum or plasma urea nitroge n measurement (mass/volume)Ordered By: Lisseth Peñaloza on 08-26-2024 Urea nitrogen [Mass/Vol] 16 mg/dL 7-18 [facility] Sodium levelOrdered By: Ania Peñaloza on 08-26-2024 Sodium [Moles/Vol] 137 mmol/L 136-145 [facility] Total proteinOrdered By: Kenney Peñaloza on 08-26-2024 Protein [Mass/Vol] 7.4 g/dL 6.4-8.2 [facility] Triglycerides measurementOrd ered By: Lisseth Peñaloza on 08-26-2024 Triglyceride [Mass/Vol] 99 mg/dL <199 [facility] Comment on above: The drugs N-Acetylcy steine and Metamizole may falsely depress this assay.Serum Triglycerides Reference Interval Normal <150 mg/dL Borderline high 150 - 199 mg/dL High 200 - 499 mg/dL Very High > or = 500 mg/dL Urine creatinine measurement (mass/volume)Ordered By: Lisseth Peñaloza on 08-26-2024 Creatinine (U) [Mass/Vol] 59.50 mg/dL NO RANGE EST. [facility] Very low density lipoprotein (VLDL) cholesterol measurementOrdered By: Lisseth Peñaloza on 08-26-2024 Very low density lipoprotein (VLDL) cholesterol measurement 20 mg/dL 5-40 [facility] Vitamin D,25 Hydroxyon 08-26 Vitamin D 25-OH 67.7 ng/mL Normal [facility] Comment on above: Result Comment: Sabrina min D 25(OH) Status Range Deficiency <20 ng/mL (50nmol/L) Insufficiency 20 - 30 ng/mL (50 - 75 nmol/L) Sufficiency 30 - 100 ng/mL (75 - 250 nmol/L) Toxicity >100 ng/mL (>250 nmol/L) Performed By: #### L 500.4050, L509.6000, L100.0100, L506.1000, L500.4100 ####[facility] [address] [place], [address] White blood cell (WBC) count Ordered By: Lisseth Peñaloza on 08-26-2024 WBC (Bld) [#/Vol] 7.3 10*3/uL 4.4-11.0 [facility] Internal Medicine Office Vis iton 08-04-2024 Internal Medicine Office Visit Normal [facility] Internal Medicine Office Vis iton 05-29-2024 Internal Medicine Office Visit Normal [facility] Echo Complete W/ Contraston 05-26-2024 Echo Complete W/ Contrast Normal [facility] 12 Lead EKG performed by SHANNEN on 05-06-2024 12 Lead EKG performed by SHANNEN Normal [facility] Cardiology Visit Reporton Cardiology Visit Report Normal [facility] CNPNon 04-10-2024 CNPN Telephone ([facility]) MICHELLE JULES ([id number]) 1965 F Date Time Provider Department 04/10/24 HOMAR VASQUES [facility] During your visit today, we recorded the [...] by mouth twice daily as needed - acetylcyst/fmerbuU95 /levomefol (METAFOLBIC PLUS ORAL) Take by mouth. - cetirizine (ZYRTEC) 10 mg tablet Take 1 tablet by mouth once daily as needed (for itching, sneezing or runny nose). - losartan (COZAAR) 25 mg tablet (Discontinued) Take 1 tablet by mouth once daily. - blood sugar diagnostic ([employer] ULTRA TEST) test strip USE TO TEST [...] Status:Closed by MARIA A MARTINEZ on 04/10/24 [facility] 04-03-2024 CNPN Telephone ([facility]) MICHELLE JULES ([id number]) 1965 F Date Time Provider Department 04/03/24 WILLIAMS RUBIN [facility] During your visit today, we recorded the following information about you: Radha Bradley 04/03/2024 10:10 AM Signed No Show Documentation Michelle Jules no showed for an appointment on 04.02.24 with Sonia Carrera RPh at [facility]. She was scheduled for follow [...] Radha Bradley April 03, 2024 10:06 AM Allergies [...] by mouth twice daily as needed - acetylcyst/fwqabjG94 /levomefol (METAFOLBIC PLUS ORAL) Take by mouth. - cetirizine (ZYRTEC) 10 mg tablet Take 1 tablet by mouth once daily as needed (for itching, sneezing or runny nose). - losartan (COZAAR) 25 mg tablet (Discontinued) Take 1 tablet by mouth once daily. - blood sugar diagnostic (F[employer] Real EstateUCH ULTRA TEST) test strip USE TO TEST [...] Encounter Status:Closed by RADHA BRADLEY on 04/03/24 [facility] CNOVon 02-26-2024 CNOV Office Visit ([facility]) MICHELLE JULES ([id number]) 1965 F Date Time Provider Department 02/26/24 2:00 PM PHARM D CLINIC [facility] During your visit today, we recorded the following information about you: Temperature Pulse Respiration Blood pressure 97.6 degrees 72/minute 16/minute 125/78 Weight Height 110.7 kg 1.753 m Sonia Carrera [facility] 03/02/2024 10:19 AM Signed REASON FOR CONSULT: diabetes Referring Provider: Dr. Thornton Date of Consult: 08/30/2023 Date of last appt with provider: 12/24/2023 Michelle S Jorge A is a 58 year old female who is presenting for follow up visit in person. Patient consents to pharmacy collaborative practice agreement. 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 Payor: [place] MEDICAID / Plan: CAR[facility] MEDICAID [facility] / Product Type: Medicaid / REVIEW OF [...] (H) 4.3 - 5.6 % Final Comment: [place] Diabetes Association guidelines indicate that patients with [...] breakfast based breakfast - complete application for SendGrid 4. Encounter for medication counseling - ICD9: V65.49, ICD10: Z71.89 Reviewed administration steps for trulicity, pt able to demo with first injection 5. Preventative health care - ICD9: V70.0, ICD10: Z00.00 -schedule mammogram and colonoscopy 6. Complex care coordination - ICD9: V65.49, ICD10: Z71.89 - message sent to provider and acute care nurse practitioner regarding f (more content not included)... Normal [facility] ED NOTEon 02-24-2024 ED NOTE HNO ID: [id number] Author: SILVANA TORRES, [place] Service: Emergency Medicine Author Type: Registered Nurse [...] improve your ED visit? 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 Carrera. She is also willing to change to Trulicity. She reports that without the Victoza her sugars are running between 200-300 and going higher every day. She is taking her Toujeo 90 units in the am and then Humalog 20 units with meals. Please advise. Sonia Carrera, [facility] 02/25/2024 9:25 AM Signed Changing victoza to trulicity - 1.5 mg weekly. She can start any day of the week. Changing as this may help with better SMBG control and weight loss vs victoza. Monitor for N/V/D/C. Injection is slightly different. We can Gowallahart message her a video or show at [employer] appt (pt has not been actively using [email or web address] however). Big difference between this and victoza is it is once WEEKLY not daily. Attempted telephone outreach to pt - unable to reach. [facility] acute care nurse practitioner who works with pt. Please notify if possible or can discuss with her at [employer] appt. Please let me know if you need anything else. Sonia Carrera, [facility] Sonia Carrera, [facility] 02/25/2024 9:25 AM Signed Addended by: SONIA CARRERA on: 02/25/2024 09:25 AM Modules accepted: Williams Covington MD 02/25/2024 9:41 AM Signed I just called patient and call does not go through. Thank you for the update, Dr. Carrera! I can send the Trulicity to her pharmacy, but I know it would be better to discuss with her first at least. Thank you! MD Rogerio Nina Stella, LPN 02/25/2024 3:04 PM Signed I just realized she called from a different number yesterday. Phone number now updated. [phone]. It is not her phone but she has access to it. Her phone number is not on. I instructed Michelle to poultry picking machine tender her Trulicity and bring it to her appt so that Dr. Carrera can instruct her on how to use it. Pt made aware that this is a weekly injection and not a daily injection. She agreed to poultry picking machine tender the script prior to her appt. She [...] Take 1 (more content not included)... Normal [facility] Telephone ([facility]) MICHELLE JULES ([id number]) 1965 F Date Time Provider Department 02/12/24 WILLIAMS RUBIN [facility] During your visit today, we recorded the following information about you: Karthik Cazares 02/12/2024 3:05 PM Signed The patient/caregiver contacted the office, requesting refills of liraglutide (VICTOZA) 0.6 mg/ 0.1 ml subcutaneous pen injector . Patient [facility] [address] [place] [address] - [address] - [phone] Last Office Visit Date: 01/29/2024 Last [facility] Health Visit: Visit date not found Future Appointment: 02/26/2024 Manny Washington MD 02/13/2024 8:44 AM Signed Addended by: MANNY SHIELDS on: 02/13/2024 08:44 AM Modules accepted: Orders [...] by mouth twice daily as needed - acetylcyst/pifddeY06 /levomefol (METAFOLBIC PLUS ORAL) Take by mouth. - furosemide (LASIX) 40 mg tablet Take 1 tablet by mouth once daily. - cetirizine (ZYRTEC) 10 mg tablet Take 1 tablet by mouth once daily as needed (for itching, sneezing or runny nose). - losartan (COZAAR) 25 mg tablet (Discontinued) Take 1 tablet by mouth once daily. - blood sugar diagnostic (Favista Real EstateUCH ULTRA TEST) test strip USE TO TEST [...] mg subcutaneou (more content not included)... Normal [facility] CNOVon 01-29-2024 CNOV Office Visit ([facility]) MICHELLE JULES ([id number]) 1965 F Date Time Provider Department 01/29/24 11:20 AM PHARM D CLINIC AG [facility] During your visit today, we recorded the following information about you: Temperature Pulse Blood pressure Weight 96.6 degrees 90/minute 113/69 109.3 kg Height 1.753 m Sonia Carrera [facility] 01/29/2024 1:57 PM Signed REASON FOR CONSULT: [...] cost limits option Going on trip to [place] end of this month Follows Past medical, family and social history reviewed and updated. Payor: [employer] MEDICAID / Plan: [facility] MEDICAID [facility] / Product Type: Medicaid / REVIEW OF [...] (A) 4.3 - 5.6 % Final Comment: Location:[facility], [address] [place] [address], [facility] Point of care (POC) Hemoglobin A1c (HGBA1C) [...] specific diabetes management situations: The POC device tobacco sampler provides a normal range of 4.2% to 6.5% for the HGBA1C POC test. However, the [place] Diabetes Association guidelines indicate that patients with [...] neuropathy, with long-term current use of insulin ([facility]) - ICD9: 250.60, 357.2, V58.67, ICD10: E11.40, [...] BMI 35 (more content not included)... Normal [facility] HbA1c (Bld)on 01-29-2024 Average glucose Estimated from glycated hemoglobin (Bld) [Mass/Vol] 246 mg/dL Normal [facility] Comment on above: Order Comment: Maty javed Type: BLOOD SPECIMENOrdering Facility: [facility] Address: [address] [place] [address] Result Comment: eAG: (Estimated average glucose) is a calculated value from HgbA1c and is screening representative of the average blood glucose level in the last 2-3 month period. Performed By: #### 5 5454-3 ####[facility] LABCLIA [id number] [facility] [id number] [place] [address] [place] HbA1c (Bld) [Mass fraction] 10.2 % High 4.3-5.6 [facility] Comment on above: Order Comment: Speci men Type: BLOOD SPECIMENOrdering Facility: [facility] Address: [address] [place] [address] Result Comment: [place] Diabetes Association guidelines indicate that patients with HgbA1c in the range 5.7-6.4% are at increased risk for development of diabetes, and intervention by lifestyle modification may be beneficial. HgbA1c greater or equal to 6.5% is considered diagnostic of diabetes. Performed By: #### 5 5454-3 ####[facility] LABCLIA [id number] [facility] [address] [address] [place] 12 Lead EKGon 01-12-2024 12 Lead EKG Normal [facility] Basic Metabolic Profile (BMP )on 01-12-2024 BUN/CRE 16.9 RATIO Normal 10-20 [facility] Comment on above: Order Comment: 'TROP ' Serial specimen #1, #2 or #3: 1 Performed By: #### L 501.4020, L500.2500, L100.0100 ####[facility] [address] [place], [address] [place],Total 9.2 mg/dL Normal 8.5-10.1 [facility] Comment on above: Order Comment: 'TROP ' Serial specimen #1, #2 or #3: 1 Performed By: #### L 501.4020, L500.2500, L100.0100 ####[facility] [address] [place], [address] Chloride [Moles/Vol] 104 mmol/L Normal 98-107 [facility] Comment on above: Order Comment: 'TROP ' Serial specimen #1, #2 or #3: 1 Performed By: #### L 501.4020, L500.2500, L100.0100 ####[facility] [address] [place], [address] CO2 [Moles/Vol] 30.0 mmol/L Normal 21.0-32.0 [facility] Comment on above: Order Comment: 'TROP ' Serial specimen #1, #2 or #3: 1 Performed By: #### L 501.4020, L500.2500, L100.0100 ####[facility] [address] [place], [address] Creatinine [Mass/Vol] 0.95 mg/dL Normal 0.55-1.02 [facility] Comment on above: Order Comment: 'TROP ' Serial specimen #1, #2 or #3: 1 Result Comment: The validity of the calculated GFR GFRAA in patients over70 years has not been determined. Clinical correlation isessential. Performed By: #### L 501.4020, L500.2500, L100.0100 ####[facility] [address] [place], [address] ECRCL 88.87 ml/min Normal [facility] Comment on above: Order Comment: 'TROP ' Serial specimen #1, #2 or #3: 1 Performed By: #### L 501.4020, L500.2500, L100.0100 ####[facility] [address] [place], [address] EST GFR - AA 78 mL/min Normal >60 [facility] Comment on above: Order Comment: 'TROP ' Serial specimen #1, #2 or #3: 1 Result Comment: Afri can [place] GFR Calc Performed By: #### L 501.4020, L500.2500, L100.0100 ####[facility] [address] [place], [address] GAP 4 Low 5-15 [facility] Comment on above: Order Comment: 'TROP ' Serial specimen #1, #2 or #3: 1 Performed By: #### L 501.4020, L500.2500, L100.0100 ####[facility] [address] [place], [address] GFR/1.73 sq M.predicted among non-blacks MDRD (S/P/Bld) [Vol rate/Area] 64 mL/min/{1.73_m2} Normal >60 [facility] Comment on above: Order Comment: 'TROP ' Serial specimen #1, #2 or #3: 1 Result Comment: Non- GFR Calc Performed By: #### L 501.4020, L500.2500, L100.0100 ####[facility] [address] [place], [address] Glucose [Mass/Vol] 172 mg/dL High 74-106 [facility] Comment on above: Order Comment: 'TROP ' Serial specimen #1, #2 or #3: 1 Result Comment: Fast ing Glucose result greater than or equal to 126 mg/dLsuggests DIABETES MELLITUS per A.D.A. criteria. Performed By: #### L 501.4020, L500.2500, L100.0100 ####[facility] [address] [place], [address] Potassium [Moles/Vol] 4.2 mmol/L Normal 3.5-5.1 [facility] Comment on above: Order Comment: 'TROP ' Serial specimen #1, #2 or #3: 1 Performed By: #### L 501.4020, L500.2500, L100.0100 ####[facility] [address] [place], [address] Sodium [Moles/Vol] 138 mmol/L Normal 136-145 [facility] Comment on above: Order Comment: 'TROP ' Serial specimen #1, #2 or #3: 1 Performed By: #### L 501.4020, L500.2500, L100.0100 ####[facility] [address] [place], [address] Urea nitrogen [Mass/Vol] 16 mg/dL Normal 7-18 [facility] Comment on above: Order Comment: 'TROP ' Serial specimen #1, #2 or #3: 1 Performed By: #### L 501.4020, L500.2500, L100.0100 ####[facility] [address] [place], [address] CBC W/Diff, Automatedon 06-3 0-2024 Absolute Lymph 1.71 X10 3/uL Normal 0.83-4.51 [facility] Comment on above: Performed By: #### L 501.4020, L500.2500, L100.0100 ####[facility] [address] [place], [address] Absolute Neut 5.5 X10 3/uL Normal 2.0-7.7 [facility] Comment on above: Performed By: #### L 501.4020, L500.2500, L100.0100 ####[facility] [address] [place], [address] Basophils/100 WBC (Bld) 0.9 % Normal 0-1 [facility] Comment on above: Performed By: #### L 501.4020, L500.2500, L100.0100 ####[facility] [address] [place], [address] Eosinophils/100 WBC (Bld) 1.0 % Normal 0-5 [facility] Comment on above: Performed By: #### L 501.4020, L500.2500, L100.0100 ####[facility] [address] [place], [address] Erythrocyte distribution width (RBC) [Ratio] 13.8 % Normal 11.6-14.6 [facility] Comment on above: Performed By: #### L 501.4020, L500.2500, L100.0100 ####[facility] [address] [place], [address] Hematocrit (Bld) [Volume fraction] 42.7 % Normal 37-47 [facility] Comment on above: Performed By: #### L 501.4020, L500.2500, L100.0100 ####[facility] [address] [place], [address] Hemoglobin (Bld) [Mass/Vol] 13.8 g/dL Normal 12.0-15.0 [facility] Comment on above: Performed By: #### L 501.4020, L500.2500, L100.0100 ####[facility] [address] [place], [address] IG% 2.200 High 0.0-0.9 [facility] Comment on above: Result Comment: IG% - Immature Granulocytes (promyelocytes, myelocytes andmetamyelocytes) > 1% indicates that a LEFT SHIFT is Present. Performed By: #### L 501.4020, L500.2500, L100.0100 ####[facility] [address] [place], [address] Lymphocytes/100 WBC (Bld) 21.2 % Normal 19-41 [facility] Comment on above: Performed By: #### L 501.4020, L500.2500, L100.0100 ####[facility] [address] [place], [address] MCH (RBC) [Entitic mass] 29.8 pg Normal 27.0-32.0 [facility] Comment on above: Performed By: #### L 501.4020, L500.2500, L100.0100 ####[facility] [address] [place], [address] MCHC (RBC) [Mass/Vol] 32.3 g/dL Normal 32-36 [facility] Comment on above: Performed By: #### L 501.4020, L500.2500, L100.0100 ####[facility] [address] [place], [address] MCV (RBC) [Entitic vol] 92.2 fL Normal 81-99 [facility] Comment on above: Performed By: #### L 501.4020, L500.2500, L100.0100 ####[facility] [address] [place], [address] Monocytes/100 WBC (Bld) 6.4 % Normal 0-10 [facility] Comment on above: Performed By: #### L 501.4020, L500.2500, L100.0100 ####[facility] [address] [place], [address] Neutrophils/100 WBC (Bld) 68.3 % Normal 47-70 [facility] Comment on above: Performed By: #### L 501.4020, L500.2500, L100.0100 ####[facility] [address] [place], [address] Nucleated RBC (Bld) [#/Vol] 0 10*3/uL Normal 0-5 [facility] Comment on above: Performed By: #### L 501.4020, L500.2500, L100.0100 ####[facility] [address] [place], [address] Platelet mean volume (Bld) [Entitic vol] 10.8 fL Normal 6.2-12.0 [facility] Comment on above: Performed By: #### L 501.4020, L500.2500, L100.0100 ####[facility] [address] [place], [address] Platelets (Bld) [#/Vol] 201 10*3/uL Normal 150-450 [facility] Comment on above: Performed By: #### L 501.4020, L500.2500, L100.0100 ####[facility] [address] [place], [address] RBC (Bld) [#/Vol] 4.63 10*6/uL Normal 4.2-5.4 [facility] Comment on above: Performed By: #### L 501.4020, L500.2500, L100.0100 ####[facility] [address] [place], [address] RDW SD 46.4 fl High 35.1-43.9 [facility] Comment on above: Performed By: #### L 501.4020, L500.2500, L100.0100 ####[facility] [address] [place], [address] WBC (Bld) [#/Vol] 8.1 10*3/uL Normal 4.4-11.0 [facility] Comment on above: Performed By: #### L 501.4020, L500.2500, L100.0100 ####[facility] [address] [place], [address] Chest PA and Lateralon 01-11 Chest PA and Lateral Normal [facility] Emergency Department Summary on 01-12-2024 Emergency Department Summary Normal [facility] L501.4020on 01-12-2024 TROPONIN-I HS 6 pg/mL Normal 3.0-54.0 [facility] Comment on above: Order Comment: 'TROP ' Serial specimen #1, #2 or #3: 1 Result Comment: Ventura murphy Note: New Test Units and Gender Specific Reference Ranges. For more information see Policy Stat Procedure [place] High Sensitivity Troponin (TNIH) and attachments. Performed By: #### L 501.4020, L500.2500, L100.0100 ####[facility] [address] [place], [address] CNOVon 12-24-2023 CNOV Office Visit (AGCFM) MICHELLE JULES ([id number]) 1965 F Date Time Provider Department 12/24/23 1:40 PM MANNY SHIELDS [facility] During your visit today, we recorded the following information about you: Temperature Pulse Respiration Blood pressure 97.6 degrees 77/minute 16/minute 119/63 Weight Height 108.2 kg 1.753 m Manny Shields MD 12/30/2023 10:29 AM Signed [facility] [address] [place] [address] [employer] / [address] [place], [place] [address] Visit Date: December 23, 2023 Name: Michelle Jules Date of : 1965 MRN/E #: [id number] Chief Complaint: No chief complaint on file. 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 furosemide (LASIX) 40 mg tablet Take 1 tablet by mouth once daily. cetirizine (ZYRTEC) 10 mg tablet Take 1 tablet by mouth once daily as needed (for itching, sneezing or runny nose). blood sugar diagnostic (F[employer]ista Real Estate[employer]CH ULTRA TEST) test strip USE TO TEST [...] Ref Ran (more content not included)... Normal [facility] HEMOGLOBIN A1C (POC)on 12-23 HbA1c (Bld) [Mass fraction] 10.7 % Abnormal 4.3 - 5.6 % [facility] Comment on above: Location:[facility], [address] [place] [address], [address] Point of care (POC) Hemoglobin A1c (HGBA1C) [...] specific diabetes management situations: The POC device tobacco sampler provides a normal range of 4.2% to 6.5% for the HGBA1C POC test. However, the [place] Diabetes Association guidelines indicate that patients with [...] Interpretation and review of laboratory results Abnormal [facility] Yandel 12-05-2023 CAROLN Telephone (AGCFM) MICHELLE JULES ([id number]) 1965 F Date Time Provider Department 12/05/23 SONIA CARRERA [facility] During your visit today, we recorded the following information about you: LissethCristiane leon 12/05/2023 2:33 PM Signed ----- Message from Tayler Chin sent at 12/05/2023 2:09 PM EDT ----- RegardinC Ida/FAMP AG ACC// Homar Vasques MD / [Callback-reschedule pharmacist appointment] Subject Line Format: Medicine / Homar Vasques MD / [Callback-reschedule pharmacist appointment] Select Department Name For Pool Routing Assistance: FAMP AG ACC CFM => AG FAMP ACC CFM APPT CTR TRIAGE POOL [[id number]] ======= Patient: Michelle Jules Date of : 1965 Primary Care Provider: Homar Vasques MD The reason I am contacting the office is: Call Back - Patient is requesting a call back from PCP Office about rescheduling appointment for 12/05/23 at 2:00pm with the pharmacist. Person calling if other than patient: N/A Best contact number: [phone] Thank you, Tayler Chin December 05, 2023 2:09 PM Cristiane Montanez 12/05/2023 2:36 PM Signed Patient said she [...] by mouth twice daily as needed - acetylcyst/zcikudO26 /levomefol (METAFOLBIC PLUS ORAL) Take by mouth. - furosemide (LASIX) 40 mg tablet Take 1 tablet by mouth once daily. - cetirizine (ZYRTEC) 10 mg tablet Take 1 tablet by mouth once daily as needed (for itching, sneezing or runny nose). - losartan (COZAAR) 25 mg tablet (Discontinued) Take 1 tablet by mouth once daily. - blood sugar diagnostic (F[employer] EstateUCH ULTRA TEST) test strip USE TO TEST [...] Mixed incontinence (more content not included)... Normal [facility] CNPN Telephone ([facility]) MICHELLE JULES Shayla ([id number]) 1965 F Date Time Provider Department 12/05/23 DEBI, SONIA [facility] During your visit today, we recorded the following information about you: Debi Sonia, [facility] 12/05/2023 2:20 PM Signed Patient no showed appt with pharmd today. Attempted telephone outreach - unable to reach. A1c due at this time; order placed. Please have patient obtain and reschedule with pharmd thanks! Hemoglobin A1C (POCT) Date Value Ref Range Status 08/30/2023 13.7 (A) 4.3 - 5.6 % Final Comment: Location:[facility], [address] [place] [address], [facility] Point of care (POC) Hemoglobin A1c (HGBA1C) [...] specific diabetes management situations: The POC device tobacco sampler provides a normal range of 4.2% to 6.5% for the HGBA1C POC test. However, the [place] Diabetes Association guidelines indicate that patients with [...] of insulin (HCC) [E11.40, Z79.4] Order(s):HEMOGLOBIN A1C [OCSBU0C] Order #: [id number] FUTURE Prescriptions as of 12/05/2023 - insulin [...] by mouth twice daily as needed - acetylcyst/nkjdxdP35 /levomefol (METAFOLBIC PLUS ORAL) Take by mouth. [...] cancer [Z80.0] (more content not included)... Normal [facility] 11-27-2023 [facility] Telephone ([facility]) MICHELLE JULES ([id number]) 1965 F Date Time Provider Department 11/27/23 WILLIAMS RUBIN [facility] During your visit today, we recorded the following information about you: Eileen Ferrera 11/27/2023 3:05 PM Signed Please review and complete. Will be placed in your in box.Thank you Specialty called 11.26.[address] Aggarwal to sign form. Allergies As of Date: [...] - Fully Assessed Reason for Visit: Forms [826] Cmt: Specialty medical- glucose monitor Prescriptions as [...] by mouth twice daily as needed - acetylcyst/igpnjtQ90 /levomefol (METAFOLBIC PLUS ORAL) Take by mouth. - furosemide (LASIX) 40 mg tablet Take 1 tablet by mouth once daily. - cetirizine (ZYRTEC) 10 mg tablet Take 1 tablet by mouth once daily as needed (for itching, sneezing or runny nose). - losartan (COZAAR) 25 mg tablet (Discontinued) Take 1 tablet by mouth once daily. - blood sugar diagnostic (Audio[employer] ULTRA TEST) test strip USE TO TEST [...] mixed [E78.2] 05/20/2023 Encounter Status:Closed by EILEEN FERRERA on 11/27/23 [facility] Yandel 11-15-2023 CAROL Telephone (AGGASTACC) JIM JULESAKHIL Mcguire ([id number]) 1965 F Date Time Provider Department 11/15/23 VERONICA CHIASTACC During your visit today, we recorded the following information about you: Veronica Chi, RN 11/15/2023 11:26 AM [facility] contacted patient regarding referral for screening colonoscopy. Patient states that she has had her previous scopes done at [facility], and is going to speak with her [...] by mouth twice daily as needed - acetylcyst/rxmlhpR37 /levomefol (METAFOLBIC PLUS ORAL) Take by mouth. - furosemide (LASIX) 40 mg tablet Take 1 tablet by mouth once daily. - cetirizine (ZYRTEC) 10 mg tablet Take 1 tablet by mouth once daily as needed (for itching, sneezing or runny nose). - losartan (COZAAR) 25 mg tablet (Discontinued) Take 1 tablet by mouth once daily. - blood sugar diagnostic ([employer] ULTRA TEST) test strip USE TO TEST [...] Encounter Status:Closed by VERONICA CHI on 11/15/23 [facility] CNOVon 11-14-2023 CNOV Office Visit (AGCFM) MICHELLE JULES ([id number]) 1965 F Date Time Provider Department 11/14/23 1:20 PM [facility] During your visit today, we recorded the following information about you: Temperature Pulse Blood pressure Weight 97.3 degrees 84/minute 119/71 108.4 kg Height 1.753 m Sonia Carrera [facility] 11/14/2023 2:14 PM Signed REASON FOR CONSULT: diabetes Referring Provider: Dr. Thornton Date of Consult: 08/30/2023 Date of last appt with FM provider: 08/30/2023 Michelle Mcguire Jules is a 58 year old female [...] neuropathy, with long-term current use of insulin ([facility]) - ICD9: 250.60, 357.2, V58.67, ICD10: E11.40, [...] to participate in this patient's care Sonia Carrera Rph The majority of the pharmacy visit (> 50%) was spent counseling and/or coordinating care for the patient. I spent a total of 25 minutes on the date of the service which included preparing to see the patient, rpbr-sp-mquo patient care, completing clinical documentation, and counseling and educating the patient/family/careg ivmarleen. Sonia Carrera RPh (more content not included)... Normal [facility] CNPGin 11-05-2023 CNPN Telephone ([facility]) MICHELLE JULES ([id number]) 1965 F Date Time Provider Department 11/05/23 WILLIAMS RUBIN [facility] During your visit today, we recorded the following information about you: Eileen Ferrera 11/05/2023 2:22 PM Signed Please review and complete. Will be placed in your temp file.Thank you Williams Rubin MD 11/07/2023 3:47 PM Signed Completed and placed in [facility] Room. Williams Rubin MD Allergies As of [...] by mouth twice daily as needed - acetylcyst/tvpbriB45 /levomefol (METAFOLBIC PLUS ORAL) Take by mouth. - furosemide (LASIX) 40 mg tablet Take 1 tablet by mouth once daily. - cetirizine (ZYRTEC) 10 mg tablet Take 1 tablet by mouth once daily as needed (for itching, sneezing or runny nose). - losartan (COZAAR) 25 mg tablet (Discontinued) Take 1 tablet by mouth once daily. - blood sugar diagnostic (MechioTOUCH ULTRA TEST) test strip USE TO TEST [...] mixed [E78.2] 05/20/2023 Encounter Status:Closed by EILEEN FERRERA on 11/05/23 [facility] C[facility]N Telephone ([facility]) MICHELLE JULES ([id number]) 1965 F Date Time Provider Department 10/31/23 HOMAR VASQUES [facility] During your visit today, we recorded the following information about you: Cristiane Montanez 10/31/2023 8:24 AM Signed Referral to GASTROENTEROLOGY entered into the [facility] portal on 10/31/2023. Confirmation number [id number]. Allergies As of Date: 10/31/2023 Noted Allergy [...] by mouth twice daily as needed - acetylcyst/vahafxV90 /levomefol (METAFOLBIC PLUS ORAL) Take by mouth. [...] mixed [E78.2] 05/20/2023 Encounter Status:Closed by CRISTIANE MONTANEZ on 10/31/23 [facility] Juan 10-30-2023 CNOV Office Visit (AGCFM) MICHELLE JULES ([id number]) 1965 F Date Time Provider Department 10/30/23 1:40 PM PHARM D CLINIC [facility] During your visit today, we recorded the following information about you: Temperature Blood pressure Weight Height 97.4 degrees 130/83 107.5 kg 1.753 m Sonia Carrera, [facility] 10/30/2023 3:29 PM Signed REASON FOR CONSULT: [...] metformin Payor: CARLOS MEDICAID / Plan: [facility]OS [facility] MEDICAID [facility] / Product Type: Medicaid / 24 hour [...] ongoing us (more content not included)... Normal [facility] ICD REMOTE CHECKon 4 AV Delay Adaptive Paced Minimum (ms) 150 ms [facility] AV Delay Adaptive Sensed Minimum (ms) 130 ms [facility] AV Delay Paced (ms) 100 ms [facility] AV Delay Sensed (ms) 85 ms [facility] Carlos Alberto LV Pacing Amplitude (volts) 2.5 V [facility] Carlos Alberto LV Pacing Pulse Width (ms) 1.0 ms [facility] carlos alberto LV Sensing Amplitude (mvolts) 1.0 mV [facility] Carlos Alberto RA Pacing Amplitude (volts) 2.0 V [facility] Carlos Alberto RA Pacing Polarity BI [facility] Carlos Alberto RA Pacing Pulse Width (ms) 0.4 ms [facility] Carlos Alberto RA Sensing Amplitude (mvolts) 0.25 mV [facility] Carlos Alberto RA Sensing Polarity BI [facility] Carlos Alberto RV Pacing Amplitude (volts) 2.0 V [facility] Carlos Alberto RV Pacing Polarity BI [facility] Carlos Alberto RV Pacing Pulse Width (ms) 0.4 ms [facility] Carlos Alberto RV Sensing Amplitude (mvolts) 0.6 mV [facility] Carlos Alberto RV Sensing Polarity BI [facility] Detection Configuration (Vent) 2 - Zone [facility] FastVT_Detection Interval 333 ms [facility] FastVT_Therapy Configuration 2 ATP(s) + 6 Shock(s) [facility] ICD FastVT DetectionStatus ENABLED [facility] ICD-AMS EPISODES 170 {beats}/min [facility] ICD-ATP Episodes (Vent) 0 C [facility] ICD-ATRIALFIBRILLATION 1107 Cl [facility] ICD-ATRIALTACHYCARDIA 1107 [facility] ICD-Device Mfg BSX [facility] ICD-LEADIMPEDANCEATRIAL 507 ohm C [facility] ICD-Percent Pacing (Atrial) 3 % [facility] ICD-Percent Pacing (Vent) 100 % [facility] ICD-Shocks Aborted (Vent) 0 [facility] SCO-BYAFBR-VSRNWXPZZ 0 [facility] ICD-SHOCKSABORTED 0 [facility] ICD-SHOCKSDELIVEREDVENT RICULAR 0 [facility] ICD-Ventricular Fibrillation 0 [facility] ICD-VVDELAY_MS 20 ms [facility] Implant Date 03/12/2018 [facility] Lead Impedance (LV) 738 ohm [facility] Lead Impedance (RV) 517 ohm [facility] Lead Impedance High Voltage 77 ohm [facility] Lead1 Mfg [employer] [facility] Lead2 Mfg Guidant [facility] Lead3 Mfg Guidant [facility] Location RA [facility] Location LV [facility] Location RV [facility] Lower Rate (bpm) 50 {beats}/min [facility] LV PACING % 100 % [facility] Max Sensor Rate (bpm) 130 {beats}/min [facility] MDT_PROG_TACHY_ZONE_DET ECTIONS_STATUS ENABLED [facility] Model G150 DYNAGEN TENTER FEEDER-D [facility] Model 0292 Endotak [place] 4-Site SG [facility] Model 4135 Dextrus [facility] Model 4542 EasyTrak 2 IS-1, 80 cm [facility] Pacing Mode DDDR [facility] Serial Number [id number] [facility] Serial Number [id number] [facility] Serial Number [id number] [facility] Serial Number [id number] [facility] Test Charge Energy 21 J [facility] Test Charge Time 11.2 s [facility] Therapy Status (Vent) Enabled [facility] Thresh LV Capture Amplitude (volts) 1.5 V [facility] Thresh LV Capture Duration (ms) 1.0 ms [facility] [facility] Thresh RA Capture Amplitude (volts) 0.5 V [facility] Thresh RA Capture Duration (ms) 0.4 ms [facility] Thresh RV Capture Amplitude (VOLTS) 0.7 V [facility] Thresh RV Capture Duration (MS) 0.4 ms [facility] Tracking Rate (bpm) 130 {beats}/min [facility] VF Zone Detection Interval 333 ms [facility] VF Zone Therapy Configuration 2 ATP(s) + 6 Shock(s) [facility] No Panel Informationon 10-21 BLANK _ [facility] ICD-ATRIALTACHYCARDIA 0 [facility] ICD-Fast Ventricular Tachycardia 0 [facility] Implant Date 09/03/2013 [facility] CNPNon 10-10-2023 [facility] Telephone ([facility]) MICHELLE JULES ([id number]) 1965 F Date Time Provider Department 10/10/23 WILLIAMS RUBIN [facility] During your visit today, we recorded the following information about you: Hossein Alexander LPN 10/10/2023 4:04 PM Signed Patient started [...] Fully Assessed Reason for Visit: Patient Question [4028] Cmt: New insulins Prescriptions as of 10/14/2023 [...] by mouth twice daily as needed - acetylcyst/qmpdrvB86 /levomefol (METAFOLBIC PLUS ORAL) Take by mouth. - furosemide (LASIX) 40 mg tablet Take 1 tablet by mouth once daily. - cetirizine (ZYRTEC) 10 mg tablet Take 1 tablet by mouth once daily as needed (for itching, sneezing or runny nose). - losartan (COZAAR) 25 mg tablet (Discontinued) Take 1 tablet by mouth once daily. - blood sugar diagnostic (AudioMicro ULTRA TEST) test strip USE TO TEST [...] mixed [E78.2] 05/20/2023 Encounter Status:Closed by HOSSEIN ALEXANDER on 10/10/23 [facility] Yandel 09-19-2023 [facility] Telephone ([facility]) MICHELLE JULES ([id number]) 1965 F Date Time Provider Department 09/19/23 [facility] RUBIN [facility] During your visit today, we recorded the following information about you: Maria A Velarde LPN 09/19/2023 10:52 AM Signed Prior authorization for Freestyle Lance 2 sensor has been submitted via [employer]. Awaiting determination. Allergies As of Date: 09/19/2023 [...] by mouth twice daily as needed - acetylcyst/ndzmsyR80 /levomefol (METAFOLBIC PLUS ORAL) Take by mouth. - furosemide (LASIX) 40 mg tablet Take 1 tablet by mouth once daily. - cetirizine (ZYRTEC) 10 mg tablet Take 1 tablet by mouth once daily as needed (for itching, sneezing or runny nose). - losartan (COZAAR) 25 mg tablet (Discontinued) Take 1 tablet by mouth once daily. - blood sugar diagnostic (MechioTOUCH ULTRA TEST) test strip USE TO TEST [...] [E78.2] 05/20/2023 Encounter Status:Closed by MARIA A VELARDE on [facility]/19/23 [facility] MICHELLE JULES ([id number]) 1965 F Date Time Provider Department 09/19/23 [facility] RUBIN [facility] During your visit today, we recorded the following information about you: Maria A Velarde LPN 09/19/2023 10:58 AM Signed Prior authorization for Nicci has been submitted via telephone (Tool[employer]). Reference # [id number]. Awaiting determination. Sonia Carrera RPh 09/24/2023 10:51 AM Signed Reaching out to nursing to determine status of PA for victoza and CGM. Sonia Carrera, [facility] Tamica Beatty LPN 10/01/2023 5:15 PM Signed I found the fax determinations under scanned documents. Nicci and Freestyle state that a PA is not required at this time. Phone call to [facility] and they closed at 5:00. Phone call to patient and she states that she has not received them. Phone call to [facility] and their network is down. Sonia Carrera, [facility] 10/02/2023 2:30 PM Signed Contacted patient - informed her to contact pharmacy to determine next steps within the next few days. Patient should be able to obtain medication and CGM. Provided nursing line if patient cannot receive. Appt with pharmD in 10/2023 - informed to bring supplies to next appt. Sonia Carrera [facility] Hemoglobin A1C (POCT) Date Value Ref Range Status 08/30/2023 13.7 (A) 4.3 - 5.6 % Final Comment: Location:[facility], [address] [place] [address], [facility] Point of care (POC) Hemoglobin A1c (HGBA1C) [...] specific diabetes management situations: The POC device tobacco sampler provides a normal range of 4.2% to 6.5% for the HGBA1C POC test. However, the [place] [employer] guidelines indicate that patients with [...] 10/07/2023 10:18 AM Signed Phone call to [employer]: I told them what [employer] said about the PA being covered and didn't require a PA. They then informed me that they were not processing it through [employer]. They were running it through [employer]. I gave them the patient's Medicaid information and both the Victoza and the Lance processed no charge. Phone call to the [...] Reason for Visit: Medication Authorization [1699] Cmt: Victoza Prescriptions as of 10/07/2023 - [...] by mouth twice daily as needed - acetylcyst/nvghwbP41 /levomefol (METAFOLBIC PLUS ORAL) Take by mouth. - (more content not included)... [facility] CNOVon 09-12-2023 CNOV Office Visit ([facility]) MICHELLE JULSE ([id number]) 1965 F Date Time Provider Department 09/12/23 3:40 PM [facility] During your visit today, we recorded the following information about you: Temperature Blood pressure Weight Height 96.8 degrees 115/70 109.3 kg 1.753 m Sonia Carrera, [facility] 09/13/2023 3:33 PM Signed REASON FOR CONSULT: [...] for it Payor: [employer]LOS MEDICAID / Plan: CARLOS [facility] MEDICAID [employer] / Product Type: Medicaid / Previously used [...] to metformin Payor: [employer]OS MEDICAID / Plan: [facility] MEDICAID [employer] / Product Type: Medicaid / 24 hour [...] verbalized understa (more content not included)... [facility] 25(OH)D3 Tigre-joshua 2023 25-hydroxyvitamin D3 [Mass/Vol] 35.3 ng/mL Normal 31.0-80.0 [facility] Comment on above: Order Comment: Speci men Type: BLOOD SPECIMEN Ordering Facility: [facility] Address: [address] [id number] Result Comment: Clas sification of 25 OH Vitamin D status: Deficiency/Insufficiency: < or = 30 ng/ml. Sufficiency/Optimal Levels: 31-80 ng/mL Toxicity: > 100 ng/mL. Test performed by chemiluminescent immunoassay. Performed By: #### 1 [id number] #### [facility] CLIA [id number] [address] [place], [place] [address] [id number] [facility] CNOVon 08-30-2023 CNOV Office Visit ([facility]) JORGE AMICHELLE Shayla ([id number]) 1965 F Date Time Provider Department 08/30/23 2:40 PM [facility] RUBIN [facility] During your visit today, we recorded the following information about you: Temperature Pulse Blood pressure Weight 97 degrees 81/minute 118/77 107 kg Height 1.753 m Williams Rubin MD 08/30/2023 9:23 PM Signed [facility] [address] [place] [address] [facility] [address] [place] [address] Visit Date: August 30, 2023 Name: Michelle Jules Date of : 1965 MRN/E #: [id number] Subjective Patient is a 58 year old [...] - Patient is stress eating : Watching sx-sgmtvs-ag-law and real mom in hospital.mom hospitalized and she is stress eating peanut butter sugar free honey in it and eats it with crackers and a root beer float, bananas - has met with Dr. Carrera - Her insurance won't cover CGM - [...] neuropathy, with long-term current use of insulin ([facility]) - ICD9: 250.60, 357.2, V58.67, ICD10: E11.40, Z79.4 (primary diagnosis) - Uncontrolled - Worsening control - Counseled on healthy diet and regular exercise - Discussed need for and benefit of weight loss. BMI 34.82 kg/(m2) - Discussed diabetic education issues of - LIRAGLUTIDE 0.6 MG/0.1 ML (18 MG/3 ML) SUBCUTANEOUS PEN INJECTOR - CARLOS FELICIANO U-100 INSULIN 100 UNIT/ML (more content not included)... [facility] HEMOGLOBIN A1C (POC)on 08-30 HbA1c (Bld) [Mass fraction] 13.7 % Abnormal 4.3 - 5.6 % [facility] ([facility]) MICHELLE JULES ([id number]) 1965 F Date Time Provider Department 07/31/23 HOMAR VASQUES [facility] During your visit today, we recorded the following information about you: Karina Anderson 07/31/2023 12:16 PM Signed Patient called and would like a nurse to call her back about her medication, DULoxetine (CYMBALTA) 60 mg capsule. She feels it is not helping her depression and has questions about the medication. Karina SunFaviola LPN 07/31/2023 1:28 PM Signed Pt called and stated that she feels her Cymbalta is not working. Pt reports feeling more depressed and having night insomnia. Pt would like to know if her medication should be increased or should she be taking a different medication altogether. Please advise Cristiane Montanez 08/02/2023 10:12 AM Signed Pt called again [...] a happy lamp she can get at [facility] that can help with depression during [...] myalgia Date Reviewed: 05/20/2023 Reviewed by: Lilli Rascon LPN - Fully Assessed Reason for Visit: [...] neuropathy, with long-term current use of insulin ([facility]) [E11.40, Z79.4] Order(s):DULoxetine (CYMBALTA) 60 mg capsuleTake [...] VITAMIN D 25 HYDROXY [SQVITD] Order #: [id number] FUTURE insulin needles, DISPOSABLE, (PEN NEEDLE) 31 [...] by mouth twice daily as needed - acetylcyst/whqffpW87 /levomefol (METAFOLBIC PLUS ORAL) Take by mouth. - glyBURIDE 5 mg tabl (more content not included)... [facility] Yandel 07-29-2023 [facility] Telephone ([facility]) MICHELLE JULES ([id number]) 1965 F Date Time Provider Department 07/29/23 WILLIAMS RUBIN [facility] During your visit today, we recorded the following information about you: Karina Anderson 07/29/2023 2:41 PM Signed Patient stopped in [...] myalgia Date Reviewed: 05/20/2023 Reviewed by: Lilli Rascon LPN - Fully Assessed Reason for Visit: [...] 1 capsule by mouth once daily. - acetylcyst/ztfqrhF88 /levomefol (METAFOLBIC PLUS ORAL) Take by mouth. [...] daily at bedtime. - blood sugar diagnostic (AudioMicro ULTRA TEST) test strip USE TO TEST [...] Encounter Status:Closed by KARINA ANDERSON on 07/31/23 [facility] 06-26-2023 CNPN Telephone ([facility]) JORGE AMICHELLE Mcguire ([id number]) 1965 F Date Time Provider Department 06/26/23 WILLIAMS RUBIN [facility] During your visit today, we recorded the following information about you: Williams Rubin MD 06/26/2023 10:57 AM Signed GLP-1 Pen Question Michelle Hever Jules called to ask if she can use her mother's extra unused and unopened Trulicity pens (her mother has 3 extra boxes that in 2023). She used her last 1.2 mg dose of Victoza this week. Her insurance will not restart until July 15, 2023 and she has worked with delinquency prevention social worker and patient outreach to get [...] that is not .. Appointment with Dr. Carrera -She is not able to make her appointment with Dr. Carrera on 07/03/2023 because she will not have insurance coverage for this visit. She says she would like to reschedule to see Dr. Carrera in July. I will contact Dr. Carrera to let her know and will let our front end web designer know as well. Vaccines -She received her [...] myalgia Date Reviewed: 05/20/2023 Reviewed by: Lilli Rascon LPN - Fully Assessed Reason for Visit: [...] 1 capsule by mouth once daily. - acetylcyst/ajdkteU61 /levomefol (METAFOLBIC PLUS ORAL) Take by mouth. [...] bedtime. - blood (more content not included)... [facility] Yandel 06-20-2023 SERA Telephone ([facility]) JORGE AMICHELLE ([id number]) 1965 F Date Time Provider Department 06/20/23 [facility] During your visit today, we recorded the following information about you: Maria A Velarde LPN 06/20/2023 3:49 PM Signed Prior authorization for Basaglar kwikpen 100unit/ml has been submitted via CoverMyMeds. Awaiting determination. Tamica Beatty LPN 06/25/2023 10:03 AM Signed Basaglar kwikpen 100unit/ml- DENIED: Denied completely for medical neccessity because: Do not see medical record of a history of therapeutic failure or intolerance to 3 preferred hypoglycemics Preferred alternatives: Insulin Glargine Solostar/Vial, Latus solostar/Vial, Levemir Flextouch/Vial, toujeo Solostar Pen/Toujeo Max Solostar Pen Phone call to [facility] they tried to process a claim [...] myalgia Date Reviewed: 05/20/2023 Reviewed by: Lilli Rascon LPN - Fully Assessed Reason for Visit: [...] 1 capsule by mouth once daily. - acetylcyst/sjosvdV86 /levomefol (METAFOLBIC PLUS ORAL) Take by mouth. [...] daily at bedtime. - blood sugar diagnostic (Favista Real EstateUCH ULTRA TEST) test strip USE TO TEST [...] [E78.2] 05/20/2023 Encounter Status:Closed by MARIA A VELARDE on 06/24/23 [facility] CNPN Telephone ([facility]) MICHELLE JULES ([id number]) 1965 F Date Time Provider Department 06/20/23 WALESKA JACKSON [facility] During your visit today, we recorded the following information about you: Waleska Jackson LSW 06/20/2023 5:25 PM Signed Reason for Contact: Referral from Dr Carrera and Carrie Murphy. Type of Contact: Phone Present: spoke [...] Alyssa Cares and Brad Nordisk PAP applications. LVM with direct contact details. GIOVANY Bhat Cheryl, [...] myalgia Date Reviewed: 05/20/2023 Reviewed by: Lilli Rascon LPN - Fully Assessed Reason for Visit: [...] 1 capsule by mouth once daily. - acetylcyst/qjvbplR25 /levomefol (METAFOLBIC PLUS ORAL) Take by mouth. [...] daily at bedtime. - blood sugar diagnostic (MechioTOUCH ULTRA TEST) test strip USE TO TEST [...] 11/12/2018 Urg (more content not included)... [facility] 06-18-2023 [facility] Telephone ([facility]) MICHELLE JULES ([id number]) 1965 F Date Time Provider Department 06/18/23 HOMAR VASQUES [facility] During your visit today, we recorded the following information about you: Maria A Martinez 06/18/2023 10:40 AM Signed ----- Message from Delia Bright sent at 06/18/2023 10:09 AM EST ----- RegardinC Ida/FAMP ACC/Cfm, Pharm D [facility] Ag/Patient wants to schedule an appointment Subject Line Format: Medicine / Homar Vasques MD / [Issue] Select Department Name For Pool Routing Assistance: FAMP AG ACC CFM => AG FAMP ACC CFM APPT CTR TRIAGE POOL [[id number]] ======= Patient: Michelle Jules Date of : 1965 Primary Care Provider: Homar Vasques MD The reason I am contacting the office is: Restricted Scheduling - Patient is requesting a call back from [facility] to schedule an appointment - follow up after 4 weeks. Patient missed their appt on 05/01/23 and they would like to reschedule. Please get in touch with them. Thank you! Person calling if other than patient: N/A Best contact number: [phone] Thank you, Delia Bright June 18, 2023 10:09 AM Maria A Martinez 06/18/2023 10:49 AM Signed Patient rescheduled for 07/03/23 with Willis Espinoza Allergies As of Date: 06/18/2023 Noted Allergy Reaction ADHESIVE TAPE (ROSINS) 03/27/2006 9 - Itching LATEX, NATURAL RUBBER 09/09/2018 2 - Rash METFORMIN 07/22/2018 14 - Other: See Comments Comments: Caused arrhythmia issues SEASONAL ALLERGIES 03/01/2023 9 - Itching SIMVASTATIN 11/04/2012 14 - Other: See Comments Comments: myalgia Date Reviewed: 05/20/2023 Reviewed by: Lilli Rascon LPN - Fully Assessed Prescriptions as of [...] 1 capsule by mouth once daily. - acetylcyst/ozbkzsS45 /levomefol (METAFOLBIC PLUS ORAL) Take by mouth. [...] daily at bedtime. - blood sugar diagnostic (AudioMicro ULTRA TEST) test strip USE TO TEST [...] of urinati (more content not included)... [facility] Telephone ([facility]) MICHELLE JULES ([id number]) 1965 F Date Time Provider Department 06/17/23 [facility] RUBIN [facility] During your visit today, we recorded the following information about you: Williams Rubin MD 06/17/2023 6:31 PM Signed I called patient regarding fasting sugars staying at 300-400s She states: - She would like all meds sent to [facility] - Ran out of long acting [...] holding - Will contact [facility] Pharmacist Dr. Carrera for her recommendation of medication and CGM use. - Will contact Dr. Vasques for recommendation of her medication for glucose control as well. MD Debi Nina Megan, RPh 06/18/2023 2:15 PM Signed Appt with pharmD 07/03/2023. Patient no showed 05/01/2023; last with pharmD 04/03/2023. Hemoglobin A1C (POCT) Date Value Ref Range Status 05/20/2023 12.5 (A) 4.2 - 5.6 % Final Comment: Location:[facility], [address] [place] [address], [facility] Point of care (POC) Hemoglobin A1c (HGBA1C) [...] specific diabetes management situations: The POC device tobacco sampler provides a normal range of 4.2% to 6.5% for the HGBA1C POC test. However, the [place] Diabetes Association guidelines indicate that patients with [...] purchase tegaderm patches OTC from pharmacy or [employer] (insurance does not cover), 2) purchase skin-tac (skin super glue) to use for prior to sensor placement or 3) try different area of the body (such stomach if falling off arm). Can discuss further at upcoming appointment as well. Sonia Carrera [facility] Homar Vasques MD 06/21/2023 5:37 PM Signed Agree w/Dr. Carrera's comments. Please make sure to route to [...] myalgia Date Reviewed: 05/20/2023 Reviewed by: Lilli Rascon LPN - Fully Assessed Reason for Visit: Results [95] Primary Visit Diagnosis:Type 2 diabetes mellitus with diabetic neuropathy, with long-term current use of insulin ([facility]) [E11.40, Z79.4] Other Visit Diagnosis:Hyperglyce kennedy [R73.9] [...] 1 capsul (more content not included)... [facility] Yandel 06-14-2023 CAROLN Telephone ([facility]) MICHELLE JULES ([id number]) 1965 F Date Time Provider Department 06/14/23 [facility] RUBIN [facility] During your visit today, we recorded the following information about you: Hossein Alexander LPN 06/14/2023 12:28 PM Signed Patient called [...] to call us and schedule with Dr. Carrera for diabetic management. Keshia Johnson 06/19/2023 10:46 AM Signed Patient called back yesterday and is scheduled with Dr. Carrera for 07/03/23. Williams Springer MD 06/19/2023 10:50 [...] myalgia Date Reviewed: 05/20/2023 Reviewed by: Lilli Rascon LPN - Fully Assessed Reason for Visit: [...] 1 capsule by mouth once daily. - acetylcyst/qetgfsA67 /levomefol (METAFOLBIC PLUS ORAL) Take by mouth. [...] daily at bedtime. - blood sugar diagnostic (Favista Real EstateUCH ULTRA TEST) test strip USE TO TEST [...] [E78.2] 05/20/2023 (more content not included)... [facility] Yandel 05-24-2023 SERA Telephone ([facility]) MICHELLE JULES ([id number]) 1965 F Date Time Provider Department 05/24/23 [facility] RUBIN [facility] During your visit today, we recorded the [...] myalgia Date Reviewed: 05/20/2023 Reviewed by: Lilli Rascon LPN - Fully Assessed Reason for Visit: [...] 1 capsule by mouth once daily. - acetylcyst/wzalheJ08 /levomefol (METAFOLBIC PLUS ORAL) Take by mouth. [...] daily at bedtime. - blood sugar diagnostic (F[employer]ista Real EstateUCH ULTRA TEST) test strip USE TO TEST [...] Encounter Status:Closed by REEMA SHEARER [facility]/24/23 [facility] ([facility] MICHELLE JULES ([id number]) 1965 F Date Time Provider Department 05/20/23 1:20 PM [facility] RUBIN [facility] During your visit today, we recorded the following information about you: Temperature Pulse Respiration Blood pressure 97 degrees 69/minute 18/minute 127/76 Weight Height 110 kg 1.753 m Williams Rubin MD 05/21/2023 3:58 PM Signed [facility] [address] [facility] / [address] [place] [address] Visit Date: May 19, 2023 Name: Michelle Jules Date of : 1965 MRN/E #: [id number] Subjective Patient is a 57 year old [...] corn, salads - Once/week exercising. Caregiver for uvenlr-om-hty Inadequate control of diabetes despite documented complaint [...] is present. (more content not included)... [facility] ICD CLINIC CHECKon 3 AV Delay Adaptive Paced Minimum (ms) 150 ms [facility] AV Delay Adaptive Sensed Minimum (ms) 130 ms [facility] AV Delay Paced (ms) 100 ms [facility] AV Delay Sensed (ms) 85 ms [facility] Carlos Alberto LV Pacing Amplitude (volts) 2.5 V [facility] Carlos Alberto LV Pacing Pulse Width (ms) 1.0 ms [facility] carlos alberto LV Sensing Amplitude (mvolts) 1.0 mV [facility] Carlos Alberto RA Pacing Amplitude (volts) 2.0 V [facility] Carlos Alberto RA Pacing Polarity BI [facility] Carlos Alberto RA Pacing Pulse Width (ms) 0.4 ms [facility] Carlos Alberto RA Sensing Amplitude (mvolts) 0.25 mV [facility] Carlos Alberto RA Sensing Polarity BI [facility] Carlos Alberto RV Pacing Amplitude (volts) 2.0 V [facility] Carlos Alberto RV Pacing Polarity BI [facility] Carlos Alberto RV Pacing Pulse Width (ms) 0.4 ms [facility] Carlos Alberto RV Sensing Amplitude (mvolts) 0.6 mV [facility] Carlos Alberto RV Sensing Polarity BI [facility] Detection Configuration (Vent) 2 - Zone [facility] FastVT_Detection Interval 333 ms [facility] FastVT_Therapy Configuration 2 ATP(s) + 6 Shock(s) [facility] ICD FastVT DetectionStatus ENABLED [facility] ICD-AMS EPISODES 170 {beats}/min [facility] ICD-ATP Episodes (Vent) 0 C [facility] ICD-ATRIALFIBRILLATION 1 Cl [facility] ICD-Device Mfg BSX [facility] ICD-LEADIMPEDANCEATRIAL 510 ohm [facility] ICD-Percent Pacing (Atrial) 8 % [facility] ICD-Percent Pacing (Vent) 100 % [facility] ICD-Rhythm /VS @ 47 bpm [facility] ICD-Shocks Aborted (Vent) 0 [facility] [id number]-XVDZPT-[id number] 0 [facility] ICD-SHOCKSABORTED 0 [facility] ICD-SHOCKSDELIVEREDVENT RICULAR 0 [facility] ICD-Ventricular Fibrillation 0 [facility] ICD-VVDELAY_MS 20 ms [facility] Implant Date 03/12/2018 [facility] Lead Impedance (LV) 738 ohm [facility] Lead Impedance (RV) 475 ohm [facility] Lead Impedance High Voltage 78 ohm [facility] Lead1 [employer]fg [employer] [facility] Lead2 Mfg Guidant [facility] Lead3 Mfg Guidant [facility] Location RA [facility] Location LV [facility] Location RV [facility] Lower Rate (bpm) 50 {beats}/min [facility] LV PACING % 100 % [facility] Max Sensor Rate (bpm) 130 {beats}/min [facility] MDT_PROG_TACHY_ZONE_DET ECTIONS_STATUS ENABLED [facility] Model G150 DYNAGEN TENTER FEEDER-D [facility] & [facility] Model 0292 [employer]otak [place] 4-Site SG [facility] Model 4135 Dextrus [facility] Model 4542 EasyTrak 2 IS-1, 80 cm [facility] Pacemaker Dependent? NO [facility] Pacing Mode DDDR [facility] Serial Number [id number] [facility] Serial Number [id number] [facility] Serial Number [id number] [facility] Serial Number [id number] [facility] Test Charge Energy 21 J [facility] Test Charge Time 11.0 s [facility] Therapy Status (Vent) Enabled [facility] Thresh LV Capture Amplitude (volts) 1.5 V [facility] Thresh LV Capture Duration (ms) 1.0 ms [facility] Thresh RA Capture Amplitude (volts) 0.5 V [facility] Thresh RA Capture Duration (ms) 0.4 ms [facility] Thresh RV Capture Amplitude (VOLTS) 0.7 V [facility] Thresh RV Capture Duration (MS) 0.4 ms [facility] Tracking Rate (bpm) 130 {beats}/min [facility] VF Zone Detection Interval 333 ms [facility] VF Zone Therapy Configuration 2 ATP(s) + 6 Shock(s) [facility] No Panel Informationon 04-03 BLANK _ [facility] ICD-Fast Ventricular Tachycardia 0 [facility] Implant Date 09/03/2013 [facility] ALBUMIN/CREAT RATIO RND URon 01-25-2023 Albumin DL <= 20 mg/L (U) [Mass/Vol] 12.7 mg/L Normal [facility] Comment on above: Order Comment: Speci men Type: URINE SPECIMEN Ordering Facility: [facility] Address: [address] [place] [address] Performed By: #### U ACR #### [facility] CLIA [id number] [address] [place] [address] [place] Albumin/Creatinine (U) [Mass ratio] 7 mg/g Normal <30 [facility] Comment on above: Order Comment: Speci men Type: URINE SPECIMEN Ordering Facility: [facility] Address: [address] [place] [address] Result Comment: Adul t Male and Female Nephrotic Criteria: <30 mg/g is considered normal to mildly increased 30-300 mg/g is considered moderately increased >300 mg/g is considered severely increased KDIGO. (2013). KDIGO 2012 Clinical Practice Guideline for the Evaluation and Management of Chronic Kidney Disease. Official Journal of the International Society of Nephrology, 3(1), 1-150. Performed By: #### U ACR #### [facility] CLIA [id number] [address] [place] [address] [place] Creatinine (U) [Mass/Vol] 188.3 mg/dL Normal 20.0-300.0 [facility] Comment on above: Order Comment: Speci men Type: URINE SPECIMEN Ordering Facility: [facility] Address: [address] [place] [address] Performed By: #### U ACR #### [facility] CLIA [id number] [address] [place] [address] [place] CBC W Auto Differential pane l (Bld)on 01-25-2023 Basophils (Bld) [#/Vol] 0.03 10*3/uL Normal <0.11 [facility] Comment on above: Order Comment: Speci men Type: BLOOD SPECIMEN Ordering Facility: [facility] Address: [address] [place] [address] Performed By: #### 5 7021-8 #### [facility] CLIA [id number] [address] [place] [address] [place] Basophils/100 WBC (Bld) 0.5 % Normal C [facility] Comment on above: Order Comment: Speci men Type: BLOOD SPECIMEN Ordering Facility: [facility] Address: [address] [place] [address] Performed By: #### 5 7021-8 #### [facility] CLIA [id number] [address] [place] [address] [place] Differential cell count method Nom (Bld) Auto Normal [facility] Comment on above: Order Comment: Speci men Type: BLOOD SPECIMEN Ordering Facility: [facility] Address: [address] [place] [address] Performed By: #### 5 7021-8 #### [facility] [id number] [address] [place] [address] [place] Eosinophils (Bld) [#/Vol] 0.09 10*3/uL Normal <0.46 [facility] Comment on above: Order Comment: Speci men Type: BLOOD SPECIMEN Ordering Facility: [facility] Address: [address] [place] [address] Performed By: #### 5 7021-8 #### [facility] [id number] [address] [place] [address] [place] Eosinophils/100 WBC (Bld) 1.5 % Normal [facility] Comment on above: Order Comment: Speci men Type: BLOOD SPECIMEN Ordering Facility: [facility] Address: [address] [place] [address] Performed By: #### 5 7021-8 #### [facility] [id number] [address] [place] [address] [place] Erythrocyte distribution width (RBC) [Ratio] 14.2 % Normal 11.5-15.0 [facility] Comment on above: Order Comment: Speci men Type: BLOOD SPECIMEN Ordering Facility: [facility] Address: [address] Performed By: #### 5 7021-8 #### [facility] CLIA [id number] [address] [place] [address] [place] Hematocrit (Bld) [Volume fraction] 38.3 % Normal 36.0-46.0 [facility] Comment on above: Order Comment: Speci men Type: BLOOD SPECIMEN Ordering Facility: [facility] Address: [address] Performed By: #### 5 7021-8 #### [facility] CLIA [id number] [address] [place] [address] [place] Hemoglobin (Bld) [Mass/Vol] 12.9 g/dL Normal 11.5-15.5 [facility] Comment on above: Order Comment: Speci men Type: BLOOD SPECIMEN Ordering Facility: [facility] Address: [address] Performed By: #### 5 7021-8 #### [facility] CLIA [id number] [address] [place] [address] [place] Immature granulocytes (Bld) [#/Vol] 0.03 10*3/uL Normal <0.10 [facility] Comment on above: Order Comment: Speci men Type: BLOOD SPECIMEN Ordering Facility: [facility] Address: [address] Performed By: #### 5 7021-8 #### [facility] CLIA [id number] [address] [place] [address] [place] Immature granulocytes/100 WBC (Bld) 0.5 % Normal [facility] Comment on above: Order Comment: Speci men Type: BLOOD SPECIMEN Ordering Facility: [facility] Address: [address] Performed By: #### 5 7021-8 #### [facility] CLIA [id number] [address] [place] [address] [place] Lymphocytes (Bld) [#/Vol] 1.65 10*3/uL Normal 1.00-4.00 [facility] Comment on above: Order Comment: Speci men Type: BLOOD SPECIMEN Ordering Facility: [facility] Address: [address] [place] [address] Performed By: #### 5 7021-8 #### [facility] CLIA [id number] [address] [place] [address] [place] Lymphocytes/100 WBC (Bld) 28.2 % Normal [facility] Comment on above: Order Comment: Speci men Type: BLOOD SPECIMEN Ordering Facility: [facility] Address: [address] [place] [address] Performed By: #### 5 7021-8 #### [facility] CLIA [id number] [address] [place] [address] [place] MCH (RBC) [Entitic mass] 29.1 pg Normal 26.0-34.0 [facility] Comment on above: Order Comment: Speci men Type: BLOOD SPECIMEN Ordering Facility: [facility] Address: [address] [place] [address] Performed By: #### 5 7021-8 #### [facility] CLIA [id number] [address] [place] [address] [place] MCHC (RBC) [Mass/Vol] 33.7 g/dL Normal 30.5-36.0 [facility] Comment on above: Order Comment: Speci men Type: BLOOD SPECIMEN Ordering Facility: [facility] Address: [address] [place] [address] Performed By: #### 5 7021-8 #### [facility] CLIA [id number] [address] [place] [address] [place] MCV (RBC) [Entitic vol] 86.5 fL Normal 80.0-100.0 C [facility] Comment on above: Order Comment: Speci men Type: BLOOD SPECIMEN Ordering Facility: [facility] Address: [address] [place] [address] Performed By: #### 5 7021-8 #### [facility] CLIA [id number] [address] [place] [address] [place] Monocytes (Bld) [#/Vol] 0.43 10*3/uL Normal <0.87 [facility] Comment on above: Order Comment: Speci men Type: BLOOD SPECIMEN Ordering Facility: [facility] Address: [address] [place] [address] Performed By: #### 5 7021-8 #### [facility] CLIA [id number] [address] [place] [address] [place] Monocytes/100 WBC (Bld) 7.4 % Normal C [facility] Comment on above: Order Comment: Speci men Type: BLOOD SPECIMEN Ordering Facility: [facility] Address: [address] [place] [address] Performed By: #### 5 7021-8 #### [facility] CLIA [id number] [address] [place] [address] [place] Neutrophils (Bld) [#/Vol] 3.62 10*3/uL Normal 1.45-7.50 [facility] Comment on above: Order Comment: Speci men Type: BLOOD SPECIMEN Ordering Facility: [facility] Address: [address] [place] [address] Performed By: #### 5 7021-8 #### [facility] CLIA [id number] [address] [place] [address] [place] Neutrophils/100 WBC (Bld) 61.9 % Normal [facility] Comment on above: Order Comment: Speci men Type: BLOOD SPECIMEN Ordering Facility: [facility] Address: [address] Performed By: #### 5 7021-8 #### [facility] CLIA [id number] [address] [place] [address] [place] Nucleated RBC (Bld) [#/Vol] 10*3/uL Normal <0.01 [facility] Comment on above: Order Comment: Speci men Type: BLOOD SPECIMEN Ordering Facility: [facility] Address: [address] Performed By: #### 5 7021-8 #### [facility] CLIA [id number] [address] [place] [address] [place] Nucleated RBC/100 WBC (Bld) [Ratio] 0.0 /100 WBC Normal [facility] Comment on above: Order Comment: Speci men Type: BLOOD SPECIMEN Ordering Facility: [facility] Address: [address] Performed By: #### 5 7021-8 #### [facility] CLIA [id number] [address] [place] [address] [place] Platelet mean volume (Bld) [Entitic vol] 10.4 fL Normal 9.0-12.7 [facility] Comment on above: Order Comment: Speci men Type: BLOOD SPECIMEN Ordering Facility: [facility] Address: [address] Performed By: #### 5 7021-8 #### [facility] CLIA [id number] [address] [place] [address] [place] Platelets (Bld) [#/Vol] 150 10*3/uL Normal 150-400 [facility] Comment on above: Order Comment: Speci men Type: BLOOD SPECIMEN Ordering Facility: [facility] Address: [address] Performed By: #### 5 7021-8 #### [facility] CLIA [id number] [address] [place] [address] [place] RBC (Bld) [#/Vol] 4.43 10*6/uL Normal 3.90-5.20 [facility] Comment on above: Order Comment: Speci men Type: BLOOD SPECIMEN Ordering Facility: [facility] Address: [address] [place] [address] Performed By: #### 5 7021-8 #### [facility] CLIA [id number] [address] [place] [address] [place] WBC (Bld) [#/Vol] 5.85 10*3/uL Normal 3.70-11.00 [facility] Comment on above: Order Comment: Speci men Type: BLOOD SPECIMEN Ordering Facility: [facility] Address: [address] [place] [address] Performed By: #### 5 7021-8 #### [facility] CLIA [id number] [address] [place] [address] [place] Comprehensive metabolic 2000 panelon 01-25-2023 Albumin [Mass/Vol] 4.0 g/dL Normal 3.9-4.9 [facility] Comment on above: Order Comment: Speci men Type: BLOOD SPECIMEN Ordering Facility: [facility] Address: [address] [place] [address] Performed By: #### 2 4323-8, 86343-3 #### [facility] CLIA [id number] [address] [place] [address] [place] ALP [Catalytic activity/Vol] 205 U/L High 34-123 [facility] Comment on above: Order Comment: Speci men Type: BLOOD SPECIMEN Ordering Facility: [facility] Address: [address] [place] [address] Performed By: #### 2 4323-8, 80569-2 #### [facility] CLIA [id number] [address] [place] [address] [place] ALT [Catalytic activity/Vol] 23 U/L Normal 7-38 [facility] Comment on above: Order Comment: Speci men Type: BLOOD SPECIMEN Ordering Facility: [facility] Address: [address] [place] [address] Performed By: #### 2 4323-8, #### [facility] CLIA [id number] [address] [place] [address] [place] Anion gap [Moles/Vol] 9 mmol/L Normal 9-18 [facility] Comment on above: Order Comment: Speci men Type: BLOOD SPECIMEN Ordering Facility: [facility] Address: [address] [place] [address] Performed By: #### 2 4323-8, #### [facility] CLIA [id number] [address] [place] [address] [place] AST [Catalytic activity/Vol] 16 U/L Normal 13-35 [facility] Comment on above: Order Comment: Speci men Type: BLOOD SPECIMEN Ordering Facility: [facility] Address: [address] [place] [address] Performed By: #### 2 4323-8, #### [facility] CLIA [id number] [address] [place] [address] [place] Bilirubin [Mass/Vol] 0.3 mg/dL Normal 0.2-1.3 [facility] Comment on above: Order Comment: Speci men Type: BLOOD SPECIMEN Ordering Facility: [facility] Address: [address] [place] [address] Performed By: #### 2 4323-8, #### [facility] CLIA [id number] [address] [place] [address] [place] Calcium [Mass/Vol] 9.4 mg/dL Normal 8.5-10.2 [facility] Comment on above: Order Comment: Speci men Type: BLOOD SPECIMEN Ordering Facility: [facility] Address: [address] [place] [address] Performed By: #### 2 4323-8, #### [facility] CLIA [id number] [address] [place] [address] [place] Chloride [Moles/Vol] 103 mmol/L Normal 97-105 [facility] Comment on above: Order Comment: Speci men Type: BLOOD SPECIMEN Ordering Facility: [facility] Address: [address] [place] [address] Performed By: #### 2 432-8, #### [facility] CLIA [id number] [address] [place] [address] [place] CO2 [Moles/Vol] 25 mmol/L Normal 22-30 [facility] Comment on above: Order Comment: Speci men Type: BLOOD SPECIMEN Ordering Facility: [facility] Address: [address] [place] [address] Performed By: #### 2 8, #### [facility] CLIA [id number] [address] [place] [address] [place] Creatinine [Mass/Vol] 0.64 mg/dL Normal 0.58-0.96 [facility] Comment on above: Order Comment: Speci men Type: BLOOD SPECIMEN Ordering Facility: [facility] Address: [address] [place], [place] [address] Performed By: #### 2 4323-8, #### [facility] CLIA [id number] [address] [place] [address] [place] ESTIMATED GLOMERULAR FILTRATION RATE 104 mL/min/1.73m??? Normal >=60 [facility] Comment on above: Order Comment: Speci men Type: BLOOD SPECIMEN Ordering Facility: [facility] Address: [address] [place] [address] [place] [address] Result Comment: Mayra mated Glomerular Filtration Rate [...] GFR. Performed By: #### 2 4323-8, #### [facility] [id number] [address] [place] [address] [place] Glucose [Mass/Vol] 304 mg/dL High 74-99 [facility] Comment on above: Order Comment: Maty javed Type: BLOOD SPECIMEN Ordering Facility: [facility] Address: [address] Result Comment: The [place] Diabetes Association (ADA) provides guidance for cutoff [...] Standards of Medical Care in Diabetes 2016, [place] [employer]. Diabetes Care. 2016.39(Suppl 1). Performed By: #### 2 4323-8, #### [facility] [id number] [address] [place] [address] [place] Potassium [Moles/Vol] 4.2 mmol/L Normal 3.7-5.1 [facility] Comment on above: Order Comment: Maty javed Type: BLOOD SPECIMEN Ordering Facility: [facility] Address: [address] [id number] Performed By: #### 2 432-, #### [facility] CLIA [id number] [address] [place] [address] [place] Protein [Mass/Vol] 7.0 g/dL Normal 6.3-8.0 [facility] Comment on above: Order Comment: Speci men Type: BLOOD SPECIMEN Ordering Facility: [facility] Address: [address] [place] [address] Performed By: #### 2 4323-8, #### [facility] CLIA [id number] [address] [place] [address] [place] Sodium [Moles/Vol] 137 mmol/L Normal 136-144 [facility] Comment on above: Order Comment: Speci men Type: BLOOD SPECIMEN Ordering Facility: [facility] Address: [address] [place] [address] Performed By: #### 2 4328, #### [facility] CLIA [id number] [address] [place] [address] [place] Urea nitrogen [Mass/Vol] 13 mg/dL Normal 7-21 [facility] Comment on above: Order Comment: Speci men Type: BLOOD SPECIMEN Ordering Facility: [facility] Address: [address] [place] [address] Performed By: #### 2 4323-8, #### [facility] CLIA [id number] [address] [place] [address] [place] HIV 1+2 Ab IA Qlon 3 HIV 1 and 2 Ab IA.rapid Nom Normal [facility] Comment on above: Order Comment: Speci men Type: BLOOD SPECIMEN Ordering Facility: [facility] Address: [address] [place] [address] Result Comment: Test not indicated. Performed By: #### 3 1201-7 #### [facility] CLIA [id number] [address] HIV 1+2 Ab+HIV1 p24 Ag IA Ql Non-Reactive Normal Nonreactive [facility] Comment on above: Order Comment: Speci men Type: BLOOD SPECIMEN Ordering Facility: [facility] Address: [address] [place] [address] Performed By: #### 3 1201-7 #### [facility] CLIA [id number] [address] [place] [address] [place] HIVINT Normal [facility] Comment on above: Order Comment: Speci men Type: BLOOD SPECIMEN Ordering Facility: [facility] Address: [address] [place] [address] Result Comment: No e vidence of HIV-1 or HIV-2 infection. Should recent infection be suspected, repeat testing may be considered 2-3 weeks after this draw. [place] Rev. Code 3701.243(E): This information has been [...] diagnoses. Performed By: #### 3 1201-7 #### [facility] CLIA [id number] [address] [place] [address] [place] Lipid 1996 panelon 3 Cholesterol [Mass/Vol] 177 mg/dL Normal <200 [facility] Comment on above: Order Comment: Speci men Type: BLOOD SPECIMEN Ordering Facility: [facility] Address: [address] [place] [address] Result Comment: <200 mg/dL, Desirable 200-239 mg/dL, Borderline high >239 mg/dL, High Performed By: #### 3 016-3, 3024-7 #### [facility] CLIA [id number] [address] [place] [address] [place] #### 69157-3 #### [facility] CLIA [id number] [address] [place] [address] [place] [facility] [place] [facility] CLIA [id number] [address] Cholesterol in HDL [Mass/Vol] 38 mg/dL Low >39 [facility] Comment on above: Order Comment: Speci men Type: BLOOD SPECIMEN Ordering Facility: [facility] Address: [address] [place] [address] Result Comment: 40-5 9 mg/dL, Acceptable >59 mg/dL, High: Negative risk factor for coronary heart disease <40 mg/dL, Low: Positive risk factor for coronary heart disease Performed By: #### 3 016-3, 7 #### [facility] CLIA [id number] [address] [place] [address] [place] #### 66966-1 #### [facility] CLIA [id number] [address] [place] [address] [place] [facility] CLIA [id number] [address] [place] [address] Cholesterol in LDL [Mass/Vol] 99 mg/dL Normal <100 [facility] Comment on above: Order Comment: Speci men Type: BLOOD SPECIMEN Ordering Facility: [facility] Address: [address] [id number] Result Comment: <100 mg/dL, Optimal 100-129 mg/dL, Near optimal/above optimal 130-159 mg/dL, Borderline high 160-189 mg/dL, High >189 mg/dL, Very high Secondary prevention optimal LDL Cholesterol levels are recommended to be < 70 mg/dL Performed By: #### 3 016-3, 3023-7 #### [facility] CLIA [id number] [address] [place] [address] [place] #### 00315-3 #### [facility] CLIA [id number] [address] [place] [address] [place] [facility] CLIA [id number] [address] Cholesterol in LDL/Cholesterol in HDL [Mass ratio] 2.61 {ratio} High <2.54 [facility] Comment on above: Order Comment: Speci men Type: BLOOD SPECIMEN Ordering Facility: [facility] Address: [address] [place] [address] Result Comment: Refe cristian: 1. National Cholesterol Education Program ATP III Guideline At-A-Glance Quick Desk Reference: National Heart, Lung, and Blood Ida. National Institutes of Health. 2001: NIH Publication No. 01-3305. 2. An International Atherosclerosis Society position paper: global recommendations for the management of dyslipidemia: executive summary, Atherosclerosis. 2014: 232(2):410-413. Performed By: #### 3 016-3, 7 #### [facility] CLIA [id number] [address] [place] [address] [place] #### 06248-7 #### [facility] CLIA [id number] [address] [place] [address] [place] [facility] [id number] [address] [place] [address] [place] Cholesterol in VLDL [Mass/Vol] 40 mg/dL High <30 [facility] Comment on above: Order Comment: Speci men Type: BLOOD SPECIMEN Ordering Facility: [facility] Address: [address] [place] [address] Performed By: #### 3 016-3, 7 #### [facility] CLIA [id number] [address] [place] [address] [place] #### 38200-0 #### [facility] CLIA [id number] [address] [place] [address] [place] [facility] CLIA [id number] [address] [place] [address] [place] Cholesterol non HDL [Mass/Vol] 139 mg/dL High <130 [facility] Comment on above: Order Comment: Speci men Type: BLOOD SPECIMEN Ordering Facility: [facility] Address: [address] [place] [address] Result Comment: <130 mg/dL, Optimal 130-159 mg/dL, Near optimal/above optimal 160-189 mg/dL, Borderline high 190-219 mg/dL, High >219 mg/dL, Very high Secondary prevention optimal non HDL Cholesterol levels are recommended to be <100 mg/dL Performed By: #### 3 016-3, 302-7 #### [facility] CLIA [id number] [address] [place] [address] [place] #### 67379-9 #### [facility] CLIA [id number] [facility] [place] [address] [place] [facility] CLIA [id number] [address] [place] [address] [place] Cholesterol.total/Bruna sterol in HDL [Mass ratio] 4.66 {ratio} Normal <5.10 [facility] Comment on above: Order Comment: Speci men Type: BLOOD SPECIMEN Ordering Facility: [facility] Address: [place] [address] Performed By: #### 3 016-3, 3024-7 #### [facility] CLIA [id number] [address] [place] [address] [place] #### 62691-6 #### [facility] CLIA [id number] [address] [place] [address] [place] [facility] CLIA [id number] [address] [place] [address] [place] FASTING TIME 12 hrs Normal [facility] Comment on above: Order Comment: Speci men Type: BLOOD SPECIMEN Ordering Facility: [facility] Address: [address] [place] [address] Performed By: #### 3 016-3, 3024-7 #### [facility] CLIA [id number] [address] [place] [address] [place] #### 67203-6 #### [facility] CLIA [id number] [address] [place] [address] [place] [facility] CLIA [id number] [address] [place] [address] [place] Triglyceride [Mass/Vol] 201 mg/dL High <150 [facility] Comment on above: Order Comment: Speci men Type: BLOOD SPECIMEN Ordering Facility: [facility] Address: [place] [address] Result Comment: <150 mg/dL, Normal 150-199 mg/dL, Borderline high 200-499 mg/dL, High >499 mg/dL, Very high Performed By: #### 3 016-3, 7 #### [facility] CLIA [id number] [address] [place] [address] [place] #### 89989-2 #### [facility] CLIA [id number] [address] [place] [address] [place] [facility] CLIA [id number] [address] [place] [address] [place] Magnesium SerPl-ncon 01-25 Magnesium [Mass/Vol] 1.9 mg/dL Normal 1.7-2.3 [facility] Comment on above: Order Comment: Speci men Type: BLOOD SPECIMEN Ordering Facility: [facility] Address: [address] [place] [address] Performed By: #### 2 4323-8, 42701-3 #### [facility] CLIA [id number] [address] [place] [address] [place] T4 Free SerPl-mCncon 023 Free T4 [Mass/Vol] 1.1 ng/dL Normal 0.9-1.7 [facility] Comment on above: Order Comment: Speci men Type: BLOOD SPECIMEN Ordering Facility: [facility] Address: [address] [place] [address] Performed By: #### 3 016-3, 3024-7 #### [facility] CLIA [id number] [address] [place] [address] [place] #### 88200-7 #### [facility] CLIA [id number] [address] [place] [address] [place] [facility] [id number] [address] [place] [address] [place] TSH SerPl-aCncon 01-25-2023 TSH Qn 0.539 m[IU]/L Normal 0.270-4.200 [facility] Comment on above: Order Comment: Speci men Type: BLOOD SPECIMEN Ordering Facility: [facility] Address: [address] [place] [address] Performed By: #### 3 016-3, 3024-7 #### [facility] CLIA [id number] [address] [place] [address] [place] #### 85007-5 #### [facility] CLIA [id number] [address] [place] [address] [place] [facility] [id number] [address] [place] [address] [place] HEMOGLOBIN A1C (POC)on 01-22 HbA1c (Bld) [Mass fraction] 14.7 % Abnormal 4.2 - 5.6 % [facility] REPORT OF OPERATIONon 2021 REPORT OF OPERATION [address] [place] [address] REPORT OF OPERATION : [id number] Signed Name: MICHELLE JULES MRUN: [id number] : 1965 Loc: [facility] Age / Sex: 56/ F Adm [...] that she is ready to move to [place]. The patient states that she does move to [place] next week. The patient denies any problems [...] 05/02/22 1229 Transcribed Date/Time: 05/02/22 1433 Normal [facility] ED Physician Documentationon 04-30-2022 ED Physician Documentation [address] [place] [address] Physician Documentation Signed:[id number] Name: MICHELLE JULES MRUN: [id number] : 1965 Loc: ED Age / Sex: [...] sutures removed in 10-14 days Referrals: Ha Rivas NP [Primary Care Provider] - Call For An [...] Tonsillectomy, Adenoidectomy, Other Additional surgical history details: T A 1971. WISDOM TEETH EXTRACTION . ADNDY LASER EYE SURGERY FOR GLAUCOMA 2019 Past [...] Cystoscopy Additional surgical history details: [facility] 2001? Past musculoskeletal history: Arthritis Type of [...] History: Negative (more content not included)... Normal [facility] REPORT OF OPERATIONon 2021 REPORT OF OPERATION [address] [place] [address] REPORT OF OPERATION : [id number] Signed Name: MICHELLE JULES MRUN: [id number] : 1965 Loc: [facility] Age / Sex: 56/ F Adm [...] 04/25/22 1232 Transcribed Date/Time: 04/25/22 1420 Normal [facility] Ameena 04-20-2022 ALT [Catalytic activity/Vol] 17 U/L Normal 0-32 [facility] Comment on above: Order Comment: CALL doctor [id number] tel. , fax [phone] ALT [Catalytic activity/Vol] 17 U/L 0 - 32 U/L [facility] Jagjit 10-07-2022 AST [Catalytic activity/Vol] 14 U/L Normal 0-31 [facility] Comment on above: Order Comment: CALL doctor 30924 tel. , fax [phone] AST [Catalytic activity/Vol] 14 U/L 0 - 31 U/L [facility] BNPon 04-20-2022 Natriuretic peptide B (Bld) [Mass/Vol] 133 pg/mL High 0-125 [facility] Comment on above: Order Comment: CALL doctor [phone] tel. , fax [phone] Basic Metabolic Panelon 10-0 Anion gap [Moles/Vol] 10 mmol/L Normal 7-16 [facility] Comment on above: Order Comment: CALL doctor 49575 tel. , fax [phone] Calcium [Mass/Vol] 9.7 mg/dL Normal 8.6-10.2 [facility] Comment on above: Order Comment: CALL doctor 98322 tel. , fax [phone] Chloride [Moles/Vol] 98 mmol/L Normal 98-107 [facility] Comment on above: Order Comment: CALL doctor 80039 tel. , fax [phone] CO2 [Moles/Vol] 28 mmol/L Normal 22-29 [facility] Comment on above: Order Comment: CALL doctor 35980 tel. , fax [phone] Creatinine [Mass/Vol] 0.9 mg/dL Normal 0.5-1.0 [facility] Comment on above: Order Comment: CALL doctor [phone] tel. , fax [phone] GFR Calculated >60 Normal >=60 [facility] Comment on above: Order Comment: CALL doctor 73887 tel. , fax [phone] Result Comment: Manager [employer] josh Kidney Disease: less than 60 ml/min/1.73 sq.m. Kidney Failure: less than 15 ml/min/1.73 sq.m. Results valid for patients 18 years and older. GFR/1.73 sq M.predicted among blacks MDRD (S/P/Bld) [Vol rate/Area] mL/min/{1.73_m2} Normal [facility] Comment on above: Order Comment: CALL doctor 88772 tel. , fax [phone] Glucose [Mass/Vol] 429 mg/dL High 74-99 [facility] Comment on above: Order Comment: CALL doctor 69992 tel. , fax [phone] Potassium [Moles/Vol] 4.4 mmol/L Normal 3.5-5.0 [facility] Comment on above: Order Comment: CALL doctor 73289 tel. , fax [phone] Sodium [Moles/Vol] 136 mmol/L Normal 132-146 [facility] Comment on above: Order Comment: CALL doctor [phone] tel. , fax [phone] Urea nitrogen [Mass/Vol] 14 mg/dL Normal 6-20 [facility] Comment on above: Order Comment: CALL doctor 22856 tel. , fax [phone] Anion gap [Moles/Vol] 10 mmol/L 7 - 16 mmol/L [facility] [employer] Calcium [Mass/Vol] 9.7 mg/dL 8.6 - 10. 2 mg/dL [facility] Chloride [Moles/Vol] 98 mmol/L 98 - 10 7 mmol/L [facility] [employer] CO2 [Moles/Vol] 28 mmol/L 22 - 29 mmol/L [facility] Creatinine [Mass/Vol] 0.9 mg/dL 0.5 - 1 mg/dL [facility] [employer] GFR >60 [facility] [employer] GFR Non- >60 60 - PINF mL/min/1.73 [facility] Comment on above: Chronic Kidney Disea se: less than 60 ml/min/1.73 sq.m. Kidney Failure: less than 15 ml/min/1.73 sq.m. Results valid for patients 18 years and older. Glucose [Mass/Vol] 429 mg/dL High 74 - 99 mg/dL [employer] Interpretation and review of laboratory results Abnormal [facility] [employer] Potassium [Moles/Vol] 4.4 mmol/L 3.5 - 5 mmol/L [facility] Sodium [Moles/Vol] 136 mmol/L 132 - 146 mmol/L [facility] Urea nitrogen (BldV) [Mass/Vol] 14 mg/dL 6 - 20 mg/dL [facility] Brain Natriuretic Peptideon 04-20-2022 Interpretation and review of laboratory results Abnormal [facility] Natriuretic peptide B (Bld) [Mass/Vol] 133 pg/mL High 0 - 125 pg/mL [facility] CALL doctor [phone] tel. , fax [phone] [facility] Magnesiumon 04-20-2022 Magnesium [Mass/Vol] 2.0 mg/dL Normal 1.6-2.6 [facility] Comment on above: Order Comment: CALL doctor 80985 tel. , fax [phone] Magnesium [Mass/Vol] 2.0 mg/dL 1.6 - 2 .6 mg/dL [facility] No Panel Informationon 04-20 CALL doctor 33707 tel. , fax [phone] [facility] US LIVERon 03-22-2022 LIVER [facility] [address] [place] [address] Diagnostic Imaging Report : [id number] Signed Name: MICHELLE JULES MRUN: [id number] : 1965 Loc: Age / Sex: 56 / F ADM Status: REG CLI ADM Date: 03/22/22 Room/Bed: Ordering Physician: Ha Rivas NP Procedure: US LIVER Order Number(s): [id number] Ordered Date: 03/22/22 Ordered Time: 08 EXAMINATION: RIGHT UPPER QUADRANT ULTRASOUND 03/22/2022 8:30 [...] Signed Date/Time: 03/22/22843 Transcribed Date/Time: 03/22/22839 Normal [facility] ALKALINE PHOSPHATASEon 03-07 ALP [Catalytic activity/Vol] 172 U/L High 43-122 [facility] Comment on above: Performed By: #### A LK PHOS 1 #### Main Lab - [facility] [address] [place] [address] Serum or plasma alkaline tabitha sphatase measurement (enzymatic activity/volume)on 03-07-2022 ALP [Catalytic activity/Vol] 172 U/L 43-122 [place] Work Phone: FREE T3on 03-01-2022 Free T3 [Mass/Vol] 2.9 pg/mL Normal 2.8-5.3 [facility] Comment on above: Performed By: #### 4 [id number] #### [place] [address] FREE T4on 03-01-2022 Free T4 [Mass/Vol] 0.83 ng/dL Normal 0.78-2.19 [facility] Comment on above: Performed By: #### 4 [id number] #### [place] [address] No Panel Informationon 03-01 [employer] T3, Freeon 03-01-2022 Free T3 [Mass/Vol] 2.9 pg/mL 2.8 - 5.3 pg/mL [facility] [employer] System T4, Freeon 03-01-2022 Free T4 [Mass/Vol] 0.83 ng/dL 0.78 - 2. 19 ng/dL [employer] [facility] TSHon 03-01-2022 TSH 0.689 uIU/mL Normal 0.465-4.680 [facility] Comment on above: Performed By: #### 4 [id number] #### [place] [id number] TSH Qn 0.689 m[IU]/L [facility] Albumin [Mass/volume] in Ser um or Plasmaon 02-06-2022 Albumin [Mass/Vol] 3.8 g/dL 3.9-5.0 [facility] [employer] Work Phone: Albumin/Globulin [Mass Ratio ] in Serum or Plasmaon 02-06-2022 Albumin/Globulin [Mass ratio] 1.0 {ratio} 1.1-1.8 [facility] [employer] Work Phone: Anion gap 4 [Moles/Vol]on Anion gap [Moles/Vol] 12 mmol/L 9-18 [facility] [employer] Work Phone: Aspartate aminotransferase [ Enzymatic activity/volume] in Serum or Plasmaon 02-06-2022 AST [Catalytic activity/Vol] 16 U/L 8-39 [place] Work Phone: Basophils Auto (Bld) [#/Vol] on 02-06-2022 Basophils (Bld) [#/Vol] 0.1 10*3/uL 0.0-0.2 [place] Work Phone: Basophils/100 WBC Auto (Bld) on 02-06-2022 Basophils/100 WBC (Bld) 0.7 % 0.0-1.0 [facility] Work Phone: Bilirubin.total [Mass/volume ] in Serum or Plasmaon 02-06-2022 Bilirubin [Mass/Vol] 0.5 mg/dL 0.2-1.3 [facility] Work Phone: CBC WITH AUTO DIFFon 022 BASO, ABSOLUTE (AUTO) 0.1 10 3/uL Normal 0.0-0.2 [facility] Comment on above: Performed By: #### C MP, CBC, LIPID, VITAMIN D, TSH 1, B12 1 #### [facility] - [address] [address] Basophils/100 WBC (Bld) 0.7 % Normal 0.0-1.0 [facility] Comment on above: Performed By: #### C MP, CBC, LIPID, VITAMIN D, TSH 1, B12 1 #### [facility] - [address] [address] EOSINOPHILS, ABSOLUTE (AUTO) 0.1 10 3/uL Normal 0.0-0.7 [facility] Comment on above: Performed By: #### C MP, CBC, LIPID, VITAMIN D, TSH 1, B12 1 #### [facility] - [address] [address] Eosinophils/100 WBC (Bld) 1.1 % Normal 0.0-5.0 [facility] Comment on above: Performed By: #### C MP, CBC, LIPID, VITAMIN D, TSH 1, B12 1 #### [facility] - [address] [address] Erythrocyte distribution width (RBC) [Ratio] 15.9 % High 11.5-14.0 [facility] Comment on above: Performed By: #### C MP, CBC, LIPID, VITAMIN D, TSH 1, B12 1 #### [facility] - [address] [address] Hematocrit (Bld) [Volume fraction] 35.8 % Normal 34.8-45.0 [facility] Comment on above: Performed By: #### C MP, CBC, LIPID, VITAMIN D, TSH 1, B12 1 #### [facility] - [address] [address] Hemoglobin (Bld) [Mass/Vol] 12.1 g/dL Normal 11.6-14.9 [facility] Comment on above: Performed By: #### C MP, CBC, LIPID, VITAMIN D, TSH 1, B12 1 #### [facility] - [address] [address] LYMPHOCYTES, ABSOLUTE (AUTO) 1.9 10 3/uL Normal 1.0-3.5 [facility] Comment on above: Performed By: #### C MP, CBC, LIPID, VITAMIN D, TSH 1, B12 1 #### [facility] [address] [place] [address] Lymphocytes/100 WBC (Bld) 26.3 % Normal 24.0-44.0 [facility] Comment on above: Performed By: #### C MP, CBC, LIPID, VITAMIN D, TSH 1, B12 1 #### [facility] [address] [place] [address] MCH (RBC) [Entitic mass] 28.7 pg Normal 27.0-31.0 [facility] Comment on above: Performed By: #### C MP, CBC, LIPID, VITAMIN D, TSH 1, B12 1 #### Main Lab - [facility] [address] [place] [address] MCHC (RBC) [Mass/Vol] 33.7 g/dL Normal 32.0-36.0 [facility] Comment on above: Performed By: #### C MP, CBC, LIPID, VITAMIN D, TSH 1, B12 1 #### [facility] [address] [place] [address] MCV (RBC) [Entitic vol] 85.0 fL Normal 78.0-100.[address] [facility] Comment on above: Performed By: #### C MP, CBC, LIPID, VITAMIN D, TSH 1, B12 1 #### [facility] [address] [place] [address] MONOCYTES, ABSOLUTE (AUTO) 0.6 10 3/uL Normal 0.2-0.8 [facility] Comment on above: Performed By: #### C MP, CBC, LIPID, VITAMIN D, TSH 1, B12 1 #### [facility] [address] [place] [address] Monocytes/100 WBC (Bld) 8.1 % Normal 1.7-9.3 [facility] Comment on above: Performed By: #### C MP, CBC, LIPID, VITAMIN D, TSH 1, B12 1 #### [facility] [address] [place] [address] NEUTROPHILS, ABSOLUTE (AUTO) 4.7 10 3/uL Normal 1.5-6.7 [facility] Comment on above: Performed By: #### C MP, CBC, LIPID, VITAMIN D, TSH 1, B12 1 #### [facility] [address] [place] [address] Neutrophils/100 WBC (Bld) 63.8 % Normal 36.0-66.0 [facility] Comment on above: Performed By: #### C MP, CBC, LIPID, VITAMIN D, TSH 1, B12 1 #### [facility] [address] [place] [address] PLATELET COUNT 167 10 3/uL Normal 150-450 [facility] Comment on above: Performed By: #### C MP, CBC, LIPID, VITAMIN D, TSH 1, B12 1 #### [facility] [address] [place] [address] Platelet mean volume (Bld) [Entitic vol] 9.4 fL Normal 6.0-9.5 [facility] Comment on above: Performed By: #### C MP, CBC, LIPID, VITAMIN D, TSH 1, B12 1 #### [facility] [address] [place] [address] RED BLOOD COUNT 4.21 x10 6/uL Normal 3.89-5.30 [facility] Comment on above: Performed By: #### C MP, CBC, LIPID, VITAMIN D, TSH 1, B12 1 #### [facility] [address] [place] [address] WHITE BLOOD COUNT 7.4 10 3/uL Normal 4.0-10.5 [facility] Comment on above: Performed By: #### C MP, CBC, LIPID, VITAMIN D, TSH 1, B12 1 #### [facility] [address] [place] [address] COMPREHENSIVE METABOLIC PANE Dmitry 02-06-2022 Albumin [Mass/Vol] 3.8 g/dL Low 3.9-5.0 [facility] Comment on above: Performed By: #### C MP, CBC, LIPID, VITAMIN D, TSH 1, B12 1 #### [facility] [address] [place] [address] Albumin/Globulin [Mass ratio] 1.0 {ratio} Low 1.1-1.8 [facility] Comment on above: Performed By: #### C MP, CBC, LIPID, VITAMIN D, TSH 1, B12 1 #### Main [facility] - [facility] [address] [place], [place] [address] ALP [Catalytic activity/Vol] 172 U/L High 43-122 [facility] Comment on above: Performed By: #### C MP, CBC, LIPID, VITAMIN D, TSH 1, B12 1 #### [facility] [address] [place] [address] ALT [Catalytic activity/Vol] 18 U/L Normal 7-56 [facility] Comment on above: Performed By: #### C MP, CBC, LIPID, VITAMIN D, TSH 1, B12 1 #### [facility] [address] [place] [address] Anion gap [Moles/Vol] 12 mmol/L Normal 9-18 [facility] Comment on above: Performed By: #### C MP, CBC, LIPID, VITAMIN D, TSH 1, B12 1 #### [facility] [address] [place] [address] AST [Catalytic activity/Vol] 16 U/L Normal 8-39 [facility] Comment on above: Performed By: #### C MP, CBC, LIPID, VITAMIN D, TSH 1, B12 1 #### [facility] [address] [place] [address] Bilirubin [Mass/Vol] 0.5 mg/dL Normal 0.2-1.3 [facility] Comment on above: Performed By: #### C MP, CBC, LIPID, VITAMIN D, TSH 1, B12 1 #### Main [facility] [address] [place] [address] BUN/CREATININE RATIO 18.0 Ratio Normal 5.0-42.0 [facility] Comment on above: Performed By: #### C MP, CBC, LIPID, VITAMIN D, TSH 1, B12 1 #### [facility] [address] [place] [address] Calcium [Mass/Vol] 9.3 mg/dL Normal 8.4-10.2 [facility] Comment on above: Performed By: #### C MP, CBC, LIPID, VITAMIN D, TSH 1, B12 1 #### [facility] [address] [place], [place] [address] Chloride [Moles/Vol] 105 mmol/L Normal 98-107 [facility] Comment on above: Performed By: #### C MP, CBC, LIPID, VITAMIN D, TSH 1, B12 1 #### [facility] [address] [place], [place] [address] CO2 [Moles/Vol] 29 mmol/L Normal 22-31 [facility] Comment on above: Performed By: #### C MP, CBC, LIPID, VITAMIN D, TSH 1, B12 1 #### Main Lab [facility] [place], [place] [address] Creatinine [Mass/Vol] 0.89 mg/dL Normal 0.80-1.30 [facility] Comment on above: Performed By: #### C MP, CBC, LIPID, VITAMIN D, TSH 1, B12 1 #### [facility] [address] [place] [address] ESTIMATED GLOMERULAR FILT RATE > 60.000 Normal [facility] Comment on above: Performed By: #### C MP, CBC, LIPID, VITAMIN D, TSH 1, B12 1 #### [facility] [address] [place] [address] Globulin (S) [Mass/Vol] 3.7 g/dL Normal [facility] Comment on above: Performed By: #### C MP, CBC, LIPID, VITAMIN D, TSH 1, B12 1 #### [facility] [address] [place] [address] Glucose [Mass/Vol] 89 mg/dL Normal 70-99 [facility] Comment on above: Result Comment: The glucose range is based on recommendations from the [place] [employer] for fasting blood glucose range. Performed By: #### C MP, CBC, LIPID, VITAMIN D, TSH 1, B12 1 #### [facility] [address] [place] [address] Potassium [Moles/Vol] 4.6 mmol/L Normal 3.6-5.0 [facility] Comment on above: Performed By: #### C MP, CBC, LIPID, VITAMIN D, TSH 1, B12 1 #### [facility] [address] [place], [place] [address] Protein [Mass/Vol] 7.5 g/dL Normal 6.3-8.2 [facility] Comment on above: Performed By: #### C MP, CBC, LIPID, VITAMIN D, TSH 1, B12 1 #### [facility] [address] [place], [place] [address] Sodium [Moles/Vol] 141 mmol/L Normal 137-145 [facility] Comment on above: Performed By: #### C MP, CBC, LIPID, VITAMIN D, TSH 1, B12 1 #### [facility] [address] [place], [place] [address] Urea nitrogen [Mass/Vol] 16 mg/dL Normal 7-21 [facility] Comment on above: Performed By: #### C MP, CBC, LIPID, VITAMIN D, TSH 1, B12 1 #### [facility] [address] [place], [place] [address] AGE,PATIENT 56 Years Normal [facility] Comment on above: Performed By: #### C MP, CBC, LIPID, VITAMIN D, TSH 1, B12 1 #### [facility] [address] [place], [place] [address] Calcium [Mass/volume] in Ser um or Plasmaon 02-06-2022 Calcium [Mass/Vol] 9.3 mg/dL 8.4-10.2 [facility] Work Phone: Carbon dioxide, total [Moles /volume] in Serum or Plasmaon 02-06-2022 CO2 [Moles/Vol] 29 mmol/L - [facility] Work Phone: Cardiac heart disease risk [ Ratio] in Serum or Plasmaon 02-06-2022 Cardiac heart disease risk [Ratio] 3.891 [place] Work Phone: Comment on above: Based on the results of the Cholesterol, Triglyceride, HDL Cholesterol, and LDL Cholesterol procedures, this patient has an average risk for developing Coronary Heart Disease. Chloride [Moles/volume] in S farrah or Plasmaon 07-26-2022 Chloride [Moles/Vol] 105 mmol/L 98-107 [facility] [employer] Work Phone: Cholesterol in LDL Calc [Mas s/Vol]on 02-06-2022 Cholesterol in LDL [Mass/Vol] 69 mg/dL 0-130 [facility] [employer] Phone: Comment on above: Expected Values:Karina rable: [...] LDL/Cholesterol in HDL [Mass ratio] 1.86 {ratio} [facility] [employer] Work Phone: Cobalamin (Vitamin B12) [Mas s/volume] in Serum or Plasmaon 02-06-2022 Cobalamin (Vitamin B12) [Mass/Vol] 738 pg/mL 194-934 [facility] [employer] Work Phone: Creatinine [Mass/volume] in Serum or Plasmaon 02-06-2022 Creatinine [Mass/Vol] 0.89 mg/dL 0.80-1.30 [facility] [employer] Work Phone: Determination of erythrocyte mean corpuscular volume (MCV)on 02-06-2022 MCV (RBC) [Entitic vol] 85.0 fL 78.0-100.0 [facility] [employer] Work Phone: Eosinophils Auto (Bld) [#/Vo l]on 02-06-2022 Eosinophils (Bld) [#/Vol] 0.1 10*3/uL 0.0-0.7 [facility] [employer] Phone: Eosinophils/100 WBC Auto (Bl d)on 02-06-2022 Eosinophils/100 WBC (Bld) 1.1 % 0.0-5.0 [facility] [employer] Work Phone: Erythrocyte distribution wid th Auto (RBC) [Ratio]on 02-06-2022 Erythrocyte distribution width (RBC) [Ratio] 15.9 % 11.5-14.0 [facility] [employer] Work Phone: Globulin [Mass/volume] in Se rumon 02-06-2022 Globulin (S) [Mass/Vol] 3.7 g/dL [facility] [employer] Work Phone: Glucose [Mass/volume] in Ser um or Plasmaon 02-06-2022 Glucose [Mass/Vol] 89 mg/dL 70-99 [facility] [employer] Work Phone: Comment on above: The glucose range is based on recommendations from the [place] [employer] for fasting blood glucose range. Hematocrit Auto (Bld) [Volum e fraction]on 02-06-2022 Hematocrit (Bld) [Volume fraction] 35.8 % 34.8-45.0 [facility] [employer] Work Phone: Hemoglobin [Mass/volume] in Bloodon 02-06-2022 Hemoglobin (Bld) [Mass/Vol] 12.1 g/dL 11.6-14.9 [facility] [employer] Work Phone: LIPID PANELon 02-06-2022 CARDIAC RISK 3.891 Normal [facility] Comment on above: Result Comment: Base d on the results of the Cholesterol, Triglyceride, HDL Cholesterol, and LDL Cholesterol procedures, this patient has an average risk for developing Coronary Heart Disease. Performed By: #### C MP, CBC, LIPID, VITAMIN D, TSH 1, B12 1 #### Main Lab - [facility] [address] [place], [place] [address] Cholesterol [Mass/Vol] 144 mg/dL Normal 0-200 So [facility] Comment on above: Performed By: #### C MP, CBC, LIPID, VITAMIN D, TSH 1, B12 1 #### Main Lab - [facility] [address] [place], [place] [address] Cholesterol in HDL [Mass/Vol] 37 mg/dL Normal 35-67 [facility] Comment on above: Performed By: #### C MP, CBC, LIPID, VITAMIN D, TSH 1, B12 1 #### Main Lab - [facility] [address] [place], [place] [address] LDL CHOLESTEROL,CALCULATED 69 mg/dL Normal 0-130 [facility] Comment on above: Result Comment: Expe cted [...] 1 #### Main Lab - [facility] [address] [place], [place] [address] LDL/HDL RATIO 1.86 Normal [facility] Comment on above: Performed By: #### C MP, CBC, LIPID, VITAMIN D, TSH 1, B12 1 #### Main Lab - [facility] [address] [place], [place] [address] Triglyceride [Mass/Vol] 190 mg/dL High 35-135 [facility] Comment on above: Result Comment: Lobito higgins from the [place] [employer]: Triglycerides Level Category -------- < 150 mg/dL Normal 150 - 199 mg/dL Borderline High 200 - 499 mg/dL High > or = 500 mg/dL Very High Performed By: #### C MP, CBC, LIPID, VITAMIN D, TSH 1, B12 1 #### Main Lab - [facility] [address] [place], [place] [address] Lymphocytes Auto (Bld) [#/Vo l]on 02-06-2022 Lymphocytes (Bld) [#/Vol] 1.9 10*3/uL 1.0-3.5 [facility] [employer] Work Phone: Lymphocytes/100 WBC Auto (Bl d)on 02-06-2022 Lymphocytes/100 WBC (Bld) 26.3 % 24.0-44.0 [facility] [employer] Work Phone: MCH Auto (RBC) [Entitic mass ]on 02-06-2022 MCH (RBC) [Entitic mass] 28.7 pg 27.0-31.0 [facility] [employer] Work Phone: MCHC Auto (RBC) [Mass/Vol]on 02-06-2022 MCHC (RBC) [Mass/Vol] 33.7 g/dL 32.0-36.0 [facility] [employer] Work Phone: Monocytes Auto (Bld) [#/Vol] on 02-06-2022 Monocytes (Bld) [#/Vol] 0.6 10*3/uL 0.2-0.8 [facility] [employer] Work Phone: Monocytes/100 WBC Auto (Bld) on 02-06-2022 Monocytes/100 WBC (Bld) 8.1 % 1.7-9.3 [facility] [employer] Work Phone: Neutrophils Auto (Bld) [#/Vo l]on 02-06-2022 Neutrophils (Bld) [#/Vol] 4.7 10*3/uL 1.5-6.7 [facility] [employer] Work Phone: Neutrophils/100 WBC Auto (Bl d)on 02-06-2022 Neutrophils/100 WBC (Bld) 63.8 % 36.0-66.0 [facility] [employer] Work Phone: No Panel Informationon 02-06 Est Glomerular Filtrat Rate mL/min > 60.000 mL/min [facility] [employer] Work Phone: Platelet mean volume Auto (B ld) [Entitic vol]on 02-06-2022 Platelet mean volume (Bld) [Entitic vol] 9.4 fL 6.0-9.5 [facility] [employer] Work Phone: Platelets Auto (Bld) [#/Vol] on 02-06-2022 Platelets (Bld) [#/Vol] 167 10*3/uL 150-450 [facility] [employer] Work Phone: Potassium [Moles/volume] in Serum or Plasmaon 02-06-2022 Potassium [Moles/Vol] 4.6 mmol/L 3.6-5.0 [facility] [employer] Work Phone: Protein [Mass/volume] in Ser um or Plasmaon 02-06-2022 Protein [Mass/Vol] 7.5 g/dL 6.3-8.2 [facility] [employer] Work Phone: RBC Auto (Bld) [#/Vol]on RBC (Bld) [#/Vol] 4.21 10*6/uL 3.89-5.30 [facility] [employer] Work Phone: Serum or plasma alanine guzman otransferase measurement (enzymatic activity/volume)on 02-06-2022 ALT [Catalytic activity/Vol] 18 U/L 7-56 [facility] [employer] Work Phone: Serum or plasma alkaline tabitha sphatase measurement (enzymatic activity/volume)on 02-06-2022 ALP [Catalytic activity/Vol] 172 U/L 43-122 [facility] [employer] Work Phone: Serum or plasma cholesterol in HDL measurement (mass/volume)on 02-06-2022 Cholesterol in HDL [Mass/Vol] 37 mg/dL 35-67 [facility] [employer] Work Phone: Serum or plasma cholesterol measurement (mass/volume)on 02-06-2022 Cholesterol [Mass/Vol] 144 mg/dL 0-200 [facility] [employer] Work Phone: Serum or plasma thyroid stim ulating hormone (TSH) measurementon 02-06-2022 TSH Qn 0.63 m[IU]/L 0.45-5.33 [facility] [employer] Work Phone: Serum or plasma urea nitroge n measurement (mass/volume)on 02-06-2022 Urea nitrogen [Mass/Vol] 16 mg/dL 7-21 [facility] [employer] Work Phone: Sodium [Moles/volume] in Ser um or Plasmaon 07-26-2022 Sodium [Moles/Vol] 141 mmol/L 137-145 [facility] [place] [employer] Work Phone: THYROID STIMULATING HORMONEo n 02-06-2022 TSH Qn 0.63 m[IU]/L Normal 0.45-5.33 [facility] Comment on above: Performed By: #### C MP, CBC, LIPID, VITAMIN D, TSH 1, B12 1 #### Main Lab - [facility] [address] [place], [place] [address] Total vitamin D measuremento n 02-06-2022 Vitamin D+Metabolites [Mass/Vol] 43.3 ng/mL 30-100 [facility] [employer] Work Phone: Comment on above: In 2010, the Milad Good Subcommittee of the Endocrine Society Task Force established the guidelines below for recommended serum 25(OH) vitamin D levels.Deficient <20 ng/mLInsufficient 20 to <30 ng/mLSufficient 30 to 100 ng/mLUpper Safety Limit >100 ng/mL Triglyceride Calc [Mass/Vol] on 02-06-2022 Triglyceride [Mass/Vol] 190 mg/dL 35-135 [facility] [employer] Work Phone: Comment on above: Guidelines from the [place] [employer]: Triglycerides Level Category -------- < 150 mg/dL Normal 150 - 199 mg/dL Borderline High 200 - 499 mg/dL High > or = 500 mg/dL Very High Urea/Creatinine [Mass Ratio] in Serum or Plasmaon 02-06-2022 Urea/Creatinine [Mass ratio] 18.0 Ratio 5.0-42.0 [facility] [employer] Phone: VITAMIN B12on 02-06-2022 Cobalamin (Vitamin B12) [Mass/Vol] 738 pg/mL Normal 194-934 [facility] Comment on above: Performed By: #### C MP, CBC, LIPID, VITAMIN D, TSH 1, B12 1 #### Main Lab - [facility] [address] [place], [place] [address] VITAMIN Don 02-06-2022 VITAMIN D 43.3 ng/mL Normal 30-100 [facility] Comment on above: Result Comment: [...] B12 1 #### Main Lab - [facility] [place], [place] [address] WBC Auto (Bld) [#/Vol]on WBC (Bld) [#/Vol] 7.4 10*3/uL 4.0-10.5 [facility] [employer] Work Phone: THYROID STIMULATING IMMUNOGL OBULINon 10-14-2021 THYROID STIMULATING IMMUNOGLOBULIN SEE BELOW Normal [facility] Comment on above: Result Comment: Thyr oid [...] medical history, and other findings. Performed By: [employer] [address] [place] [id number] Director Business Integration: Rina Dexter MD Performed By: #### [id number] #### [place] [id number] No Panel Informationon 10-13 Atrial [facility] [place] [facility] P-R Interval [facility] Q-T Interval [facility] Q-T Interval (corrected) [facility] QRS Duration [facility] QTC Calculation (Bezet) [facility] [place] [facility] [place] [facility] Ventricular Rate [facility] TSH SHOPPER MARKETING MANAGER ABon 10-13-2021 TSH RECEPTOR AB <0.80 Normal <=1.75 [facility] Comment on above: Result Comment: Perf ormed By: [employer] [address] [place] [id number] Director Business Integration: Rina Dexter MD Performed By: #### [id number] #### [place] [address] THYROID PEROXIDASEon 2 022 THYROID PEROXIDASE 3.6 IU/mL Normal 0.0-9.0 [facility] Comment on above: Result Comment: Perf ormed By: [employer] [address] [place] [id number] Director Business Integration: Rina Dexter MD Performed By: #### [id number] #### [place] [address] FREE T3on 10-10-2021 Free T3 [Mass/Vol] 4.5 pg/mL Normal 2.8-5.3 [facility] Comment on above: Performed By: #### [id number] #### [place] [address] FREE T4on 10-10-2021 Free T4 [Mass/Vol] 1.23 ng/dL Normal 0.78-2.19 [facility] Comment on above: Performed By: #### [id number] #### [place] [address] No Panel Informationon 10-10 [facility] [employer] T3, Freeon 10-10-2021 Free T3 [Mass/Vol] 4.5 pg/mL 2.8 - 5.3 pg/mL [facility] [employer] T4, Freeon 10-10-2021 Free T4 [Mass/Vol] 1.23 ng/dL 0.78 - 2. 19 ng/dL [facility] TSHon 10-10-2021 TSH 0.539 uIU/mL Normal 0.465-4.680 [facility] Comment on above: Performed By: #### [id number] #### [place] [address] TSH Qn 0.539 m[IU]/L [facility] Basic metabolic 2000 panelOr yvon By: SLY NIX on 08-16-2021 Age [Time] 56 Years Carrie Lemos.P.M. Work Phone: Anion gap [Moles/Vol] 14 mmol/L Normal 9 - 18 Asa Nix D.P.M. Work Phone: Calcium [Mass/Vol] 8.4 mg/dL Normal 8.4 - 10.2 Carrie Lemos.P[employer] Work Phone: Chloride [Moles/Vol] 96 mmol/L Low 98 - 107 Delores ph D D.P.M. Work Phone: CO2 [Moles/Vol] 26 mmol/L Normal 22 - 31 Sly Del Rio D.P.M. Work Phone: Creatinine [Mass/Vol] 0.89 mg/dL Normal 0.80 - 1.30 Lisseth Nix D.P.M. Work Phone: GFR/1.73 sq M.predicted MDRD (S/P/Bld) [Vol rate/Area] Laboratory test result Normal Sly Nix D.P.M. Work Phone: Glucose [Mass/Vol] 493 mg/dL Critically high 70 - 99 Kendra Nix D.P.M. Work Phone: Comment on above: Critical result GLU 493 mg/dL called to and read back by DORIAN ARAGON RN PAT at 16-Aug-2021 13:42 by TERESA. The glucose range is based on recommendations from the [place] [employer] for fasting blood glucose range. Potassium [Moles/Vol] 3.9 mmol/L Normal 3.6 - 5.0 Asa Nix D.P.M. Work Phone: Sodium [Moles/Vol] 132 mmol/L Low 137 - 145 Carrie Lemos.P.M. Work Phone: Urea nitrogen [Mass/Vol] 13 mg/dL Normal 7 - 21 Gisselle LemosP.M. Work Phone: Urea/Creatinine [Mass ratio] 14.6 Ratio Normal 5.0 - 42.0 Gisselle LemosP.M. Work Phone: Hemogram, platelets & Differ ential [...] [Ratio] 15.0 % High 11.5 - 14.0 Gisselle LemosP.M. Work Phone: Hematocrit (Bld) [Volume fraction] 38.8 % Normal 34.8 - 45.0 Gisselle LemosP.M. Work Phone: Hemoglobin (Bld) [Mass/Vol] 12.6 g/dL Normal 11.6 - 14.9 Gisselle LemosP.M. Work Phone: Lymphocytes (Bld) [#/Vol] 1.5 10*3/uL Normal 1.0 - 3.5 Carrie Lemos.P.M. Work Phone: Lymphocytes/100 WBC (Bld) 28.5 % Normal 24.0 - 44.0 Gisselle LemosP.M. Work Phone: MCH (RBC) [Entitic mass] 28.2 pg Normal 27.0 - 31.0 Gisselle LemosP.M. Work Phone: MCHC (RBC) [Mass/Vol] 32.5 g/dL Normal 32.0 - 36.0 Gisselle MuellerP.M. Work Phone: MCV (RBC) [Entitic vol] 86.8 fL Normal 78.0 - 100.0 Gisselle LemosP.M. Work Phone: Monocytes (Bld) [#/Vol] 0.5 10*3/uL Normal 0.2 - 0.8 Gisselle LemosP.M. Work Phone: Monocytes/100 WBC (Bld) 9.3 % Normal 1.7 - 9.3 Gisselle DelgadoP.M. Work Phone: Neutrophils (Bld) [#/Vol] 3.1 10*3/uL Normal 1.5 - 6.7 Gisselle LemosP.M. Work Phone: Neutrophils/100 WBC (Bld) 60.4 % Normal 36.0 - 66.0 Gisselle LemosP.M. Work Phone: Platelet mean volume (Bld) [Entitic vol] 9.0 fL Normal 6.0 - 9.5 Gisselle LemosP.M. Work Phone: Platelets (Bld) [#/Vol] 174 10*3/uL Normal 150 - 450 Gisselle LemosP.M. Work Phone: RBC (Bld) [#/Vol] 4.47 10*6/uL Normal 3.89 - 5.30 Carrie Estrella ph D.P.M. Work Phone: WBC corrected for nucl RBC Auto (Bld) [#/Vol] 5.1 10^3/uL Normal 4.0 - 10.5 Gisselle CervantesP.M. Work Phone: Laboratory test findingOrder ed By: SLY NIX on 08-16-2021 TSH Qn 0.22 m[IU]/L Low 0.45 - 5.33 Sly mcguire D.P.M. Work Phone: Comment on above: Main Lab - [place] [address] Basic metabolic 2000 panelOr dered By: SLY NIX on 05-29-2021 Age [Time] 55 Years Carrie Lemos.P.M. Work Phone: Anion gap [Moles/Vol] 14 mmol/L Normal 9 - 18 Asa Nix D.P.M. Work Phone: Calcium [Mass/Vol] 9.4 mg/dL Normal 8.4 - 10.2 Carrie Lemos.P.M. Work Phone: Chloride [Moles/Vol] 103 mmol/L Normal 98 - 107 Delores ph D D.P.M. Work Phone: CO2 [Moles/Vol] 26 mmol/L Normal 22 - 31 Sly Del Rio D.P.M. Work Phone: Creatinine [Mass/Vol] 0.91 mg/dL Normal 0.80 - 1.30 Lisseth Nix D.P.M. Work Phone: GFR/1.73 sq M.predicted MDRD (S/P/Bld) [Vol rate/Area] Laboratory test result Normal Carrie Lemos.P.M. Work Phone: Glucose [Mass/Vol] 165 mg/dL High 70 - 99 Carrie Lemos.P.M. Work Phone: Comment on above: The glucose range is based on recommendations from the [place] [employer] for fasting blood glucose range. Potassium [Moles/Vol] 4.0 mmol/L Normal 3.6 - 5.0 Asa Nix D.P.M. Work Phone: Sodium [Moles/Vol] 139 mmol/L Normal 137 - 145 Gisselle LemosP.M. Work Phone: Urea nitrogen [Mass/Vol] 19 mg/dL Normal 7 - 21 Gisselle LemosP.M. Work Phone: Urea/Creatinine [Mass ratio] 20.9 Ratio Normal 5.0 - 42.0 Gisselle LemosP.M. Work Phone: Hemogram, platelets & Differ ential [...] (Bld) 62.4 % Normal 36.0 - 66.0 Gisselle LemosP.M. Work Phone: Platelet mean volume (Bld) [Entitic vol] 9.0 fL Normal 6.0 - 9.5 Gisselle LemosP.M. Work Phone: Platelets (Bld) [#/Vol] 183 10*3/uL Normal 150 - 450 Gisselle LemosP.M. Work Phone: RBC (Bld) [#/Vol] 4.57 10*6/uL Normal 3.89 - 5.30 Carrie Estrella ph D.P.M. Work Phone: WBC corrected for nucl RBC Auto (Bld) [#/Vol] 5.7 10^3/uL Normal 4.0 - 10.5 Sly Del Rio D.P.M. Work Phone: Laboratory test findingOrder ed By: SLY NIX on 05-29-2021 TSH Qn 0.28 m[IU]/L Low 0.45 - 5.33 Sly mcguire D.P.M. Work Phone: Comment on above: Main Lab - [place] [address] ABO and Rh group panel (Bld) Ordered [...] POOL=Pooled / UNK=Unknown Basic metabolic 2000 panelOr dered By: THOMAS SILVA on 12-19-2020 Age [Time] 55 Years Carrie Lemos.P.M. Work Phone: Anion gap [Moles/Vol] 12 mmol/L Normal 9 - 18 Asa Nix D.P.M. Work Phone: Calcium [Mass/Vol] 9.0 mg/dL Normal 8.4 - 10.2 Carrie Lemos.P.M. Work Phone: Chloride [Moles/Vol] 97 mmol/L Low 98 - 107 Delores ph D D.P.M. Work Phone: CO2 [Moles/Vol] 30 mmol/L Normal 22 - 31 Sly Del Rio D.P.M. Work Phone: Creatinine [Mass/Vol] 0.85 mg/dL Normal 0.80 - 1.30 Carrie Mueller.P.M. Work Phone: GFR/1.73 sq M.predicted MDRD (S/P/Bld) [Vol rate/Area] Laboratory test result Normal Gisselle eLmosP.M. Work Phone: Glucose [Mass/Vol] 197 mg/dL High 70 - 99 Carrie Lemos.P.M. Work Phone: Comment on above: The glucose range is based on recommendations from the [place] [employer] for fasting blood glucose range. Potassium [Moles/Vol] 3.1 mmol/L Low 3.6 - 5.0 Carrie Collins.P.M. Work Phone: Sodium [Moles/Vol] 136 mmol/L Low 137 - 145 Carrie Lemos.P.M. Work Phone: Urea nitrogen [Mass/Vol] 13 mg/dL Normal 7 - 21 Carrie Lemos.P.M. Work Phone: Urea/Creatinine [Mass ratio] 15.3 Ratio Normal 5.0 - 42.0 Carrie Lemos.P.M. Work Phone: Blood type and Indirect anti body screen panel (Bld)Ordered By: THOMAS SILVA on 12-19-2020 Bleeding time Laboratory test result Gisselle LemosP.M. Work Phone: HGB A1c With MBG ValueOrdere d By: THOMAS SILVA on 12-19-2020 Average glucose Estimated from glycated hemoglobin (Bld) [Mass/Vol] 264 mg/dL Normal Gisselle LemosP.M. Work Phone: HbA1c (Bld) [Mass fraction] 9.6 % High 4.0 - 6.0 Carrie Lemos.P.M. Work Phone: Hemogram without Platelets a nd with Manual Differential panel (Bld)Ordered By: THOMAS SILVA on 12-19-2020 Anisocytosis Ql (Bld) Laboratory test result Abnormal Carrie Lemos.P.M. Work Phone: Basophils (Bld) [#/Vol] 0.0 X103 Normal 0.0 - 0.2 Gisselle DelgadoP.M. Work Phone: Basophils/100 WBC (Bld) 0 % Normal 0 - 1 Gisselle DelgadoP.M. Work Phone: Eosinophils (Bld) [#/Vol] 0.1 X103 Normal 0.0 - 0.7 Gisselle LemosP.M. Work Phone: Eosinophils/100 WBC (Bld) 2 % Normal 1 - 4 Gisselle LemosP.M. Work Phone: Erythrocyte distribution width (RBC) [Ratio] 16.1 % High 11.5 - 14.0 Gisselle LemosP.M. Work Phone: Hematocrit (Bld) [Volume fraction] 37.1 % Normal 34.8 - 45.0 Gisselle LemosP.M. Work Phone: Hemoglobin (Bld) [Mass/Vol] 12.3 g/dL Normal 11.6 - 14.9 Carrie Lemos.P.M. Work Phone: Lymphocytes (Bld) [#/Vol] 1.7 X103 Normal 1.0 - 3.5 Gisselle eLmosP.M. Work Phone: Lymphocytes/100 WBC (Bld) 27 % Normal 24 - 44 Gisselle LemosP.M. Work Phone: MCH (RBC) [Entitic mass] 28.2 pg Normal 27.0 - 31.0 Gisselle LemosP.M. Work Phone: MCHC (RBC) [Mass/Vol] 33.1 g/dL Normal 32.0 - 36.0 Gisselle MuellerP.M. Work Phone: MCV (RBC) [Entitic vol] 85.2 fL Normal 78.0 - 100.0 Gisselle LemosP.M. Work Phone: Monocytes (Bld) [#/Vol] 0.6 X103 Normal 0.2 - 0.8 Gisselle DelgadoP.M. Work Phone: Monocytes/100 WBC (Bld) 10 % High 2 - 5 Gisselle DelgadoP.M. Work Phone: Neutrophils (Bld) [#/Vol] 3.7 103uL Normal 1.5 - 6.7 Gisselle LemosP.M. Work Phone: Platelet mean volume (Bld) [Entitic vol] 8.7 fL Normal 6.0 - 9.5 Gisselle LemosP.M. Work Phone: Platelets (Bld) [#/Vol] 163 10*3/uL Normal 150 - 450 Gisselle LemosP.M. Work Phone: RBC (Bld) [#/Vol] 4.36 10*6/uL Normal 3.89 - 5.30 Delores ph D D.P.M. Work Phone: Segmented neutrophils/100 WBC (Bld) 61 % Normal 36 - 66 Carrie Lemos.P.M. Work Phone: WBC corrected for nucl RBC Auto (Bld) [#/Vol] 6.1 10^3/uL Normal 4.0 - 10.5 Carrie Cervantes.P.M. Work Phone: Laboratory test findingOrder ed By: THOMAS SILVA on 12-19-2020 Bacteria identified Cx Nom (U) Laboratory test result Gisselle LemosP.M. Work Phone: Comment on above: VIRIDANS STREPTOCOCC US: IsolatedURINE CULTURE: COLONY COUNT(URINE):>100,000 Laboratory test findingon TSH Qn 0.41 m[IU]/L Low 0.45 - 5.33 Gisselle LarsonP.M. Work Phone: Comment on above: Main Lab - [facility] [id number] PT panel Coag (PPP)Ordered B y: THOMAS DONNA on 12-19-2020 INR Coag (PPP) [Relative time] 1.0 {INR} Normal Sly Nix D.P.M. Work Phone: Comment on above: RECOMMENDED RANGES F OR INR: Therapeutic range for standard therapy INR: 2.0-3.0 Therapeutic range for high dose therapy INR: 2.5-3.5 PT Coag (Bld) [Time] 13.0 s Normal 11.3 - 14.8 Asa Nix D.P.M. Work Phone: Type And ScreenOrdered By: Nickolas SILVA on 12-19-2020 Note Laboratory test result Sly Nix D.P.M. Work Phone: Comment on above: Legend: ABN=AB Negative / ABP=AB Positive / AN=A Negative / AP=A Positive / BN=B Negative / BP=B Positive / ON=O Negative / OP=O Positive / POOL=Pooled / UNK=Unknown Urine ProtocolOrdered By: EMILEE SILVA on 12-19-2020 Bacteria LM.HPF (Urine sed) [#/Area] Laboratory test result Abnormal Sly Nix D.P.M. Work Phone: Clarity (U) Laboratory test result Sly Nix D.P.M. Work Phone: Color (U) Laboratory test result Sly Nix D.P.M. Work Phone: Epithelial cells LM.HPF (Urine sed) [#/Area] Laboratory test result Abnormal Sly Nix D.P.M. Work Phone: Glucose Test strip (U) [Mass/Vol] Laboratory test result Sly Nix D.P.M. Work Phone: Hemoglobin Ql (U) Laboratory test result Abnormal Sly Nix D.P.M. Work Phone: Ketones (U) [Mass/Vol] Laboratory test result Sly Nix D.P.M. Work Phone: Leukocyte esterase Test strip Ql (U) Laboratory test result Carrie Lemos.P.M. Work Phone: Mucus LM.LPF (Urine sed) [#/Area] Laboratory test result Carrie Lemos.P.M. Work Phone: Nitrite Ql (U) Laboratory test result Carrie Lemos.P.M. Work Phone: pH (U) 5.0 [pH] 5.0 - 8.0 Carrie Lemos.P.M. Work Phone: Protein (U) [Mass/Vol] Laboratory test result Carrie Lemos.P.M. Work Phone: RBC LM.HPF (Urine sed) [#/Area] Laboratory test result Carrie Lemos.P.M. Work Phone: Specific gravity (U) [Rel density] 1.015 SP.GR. Carrie Lemos.P.M. Work Phone: WBC LM.HPF (Urine sed) [#/Area] Laboratory test result Carrie Lemos.P.M. Work Phone: Comment on above: Unless otherwise not ed, urine microscopic evaluation is normal. ECG 12-LEADon 10-07-2020 Atrial Rate [facility] [place] [facility] P-R Interval [facility] Q-T Interval [facility] Q-T Interval (corrected) [facility] QRS Duration [facility] QTC Calculation (Bezet) [facility] [place] [facility] [place] [facility] HGB A1C WITH MBG VALUE (EXTE RNAL)on 09-01-2019 Glucose [Mass/Vol] 204 mg/dL [facility] HbA1c (Bld) [Mass fraction] 7.9 % High 4 - 6 % [facility] Interpretation and review of laboratory results Abnormal [facility] Original Ordering Provider: David Silva III, MD [facility] ECG 12-LEADon 08-21-2019 Atrial Rate [facility] [place] [facility] P-R Interval [facility] Q-T Interval [facility] Q-T Interval (corrected) [facility] QRS Duration [facility] QTC Calculation (Bezet) [facility] [place] [facility] T [place] [facility] Ventricular Rate [facility] th CBC WITH AUTO DIFF (EXTERNAL )on 08-18-2019 BASO, ABSOLUTE (AUTO) 0.0 Gen [facility] Basophils/100 WBC (Bld) 0.6 % 0 - 1 % [facility] Eosinophils (Bld) [#/Vol] 0.1 10*3/uL [facility] Eosinophils/100 WBC (Bld) 1.8 % 0 - 5 % [facility] Erythrocyte distribution width (RBC) [Ratio] 17.0 % High 11.5 - 14 % [facility] Hematocrit (Bld) [Volume fraction] 36.5 % 34.8 - 45 % [facility] Hemoglobin (Bld) [Mass/Vol] 11.8 g/dL 11.6 - 14.9 g/dL [facility] Interpretation and review of laboratory results Abnormal [facility] Lymphocytes (Bld) [#/Vol] 1.6 10*3/uL [facility] Lymphocytes/100 WBC (Bld) 24.3 % 24 - 44 % [facility] MCH (RBC) [Entitic mass] 32.3 g/dL 32 - 36 g/dL [facility] MCH (RBC) [Entitic mass] 27.2 pg 27 - 31 pg [facility] MCV (RBC) [Entitic vol] 84.1 fL 78 - 100 fL [facility] Monocytes (Bld) [#/Vol] 0.6 10*3/uL [facility] Monocytes/100 WBC (Bld) 9.5 % High 1.7 - 9.3 % [facility] NEUTROPHILS, ABSOLUTE (AUTO) 4.3 [facility] Neutrophils/100 WBC (Bld) 63.8 % 36 - 66 % [facility] Platelet mean volume (Bld) [Entitic vol] 9.2 fL 6 - 9.5 fl [facility] Platelets (Bld) [#/Vol] 190 10*3/uL [facility] [place] RBC (Bld) [#/Vol] 4.34 10*6/uL [facility] WBC (Bld) [#/Vol] 6.7 10*3/uL [facility] Original Ordering Provider: Ha Rivas [facility] COMPREHENSIVE METABOLIC PANE L (EXTERNAL)on 08-18-2019 Age - Reported 54 Years [facility] Original Ordering Provider: Ha Rivas [facility] BMP with eGFRon 05-30-2018 Age Reported 52 years Normal [facility] Comment on above: Performed By: #### 2 99627 ####[facility],[address] [place] [address] 70754 Anion gap 3 molar conc 11 mmol/L Normal 10 - 20 [facility] Comment on above: Performed By: #### 2 76419 ####[facility],[address] [place] [address] 88389 Calcium mass conc 9.6 mg/dL Normal 8.6 - 10.2 [facility] Comment on above: Performed By: #### 2 93953 ####[facility],[address] [place] [address] 85017 Chloride molar conc 100 mmol/L Normal 98 - 107 [facility] Comment on above: Performed By: #### 2 31973 ####[facility],[address] [place] [address] 28881 CO2 molar conc 29.5 mmol/L Normal 21.0 - 31.0 [facility] Comment on above: Performed By: #### 2 97036 ####[facility],[address] [place] [address] 62180 Creatinine mass conc 0.9 mg/dL Normal 0.6 - 1.2 [facility] Comment on above: Performed By: #### 2 91238 ####[facility],[address] [place] [address] 80930 GFR/1.73 sq M predicted among non-blacks MDRD vol rate/area (S/P/Bld) Normal [facility] Comment on above: Result Comment: BASI C METABOLIC PANEL Performed By: #### 2 19478 ####[facility],[address] [place] [address] 62864 GFR/1.73 sq M predicted among non-blacks MDRD vol rate/area (S/P/Bld) mL/min/{1.73_m2} Normal 60 - 999 [facility] Comment on above: Result Comment: ACCO RDING TO THE NATIONAL KIDNEY DISEASE EDUCATION PROGRAM(NKDE), A NORMAL eGFRIS A VALUE GREATER THAN OR EQUAL TO 60 ML/MIN/1.73 SQ METERS.CHRONIC KIDNEY DISEASE: <60mL/MIN/1.73 SQ METERSKIDNEY FAILURE: <15mL/MIN/1.73 SQ METERSTHIS TEST SHOULD ONLY BE USED FOR PATIENTS 18 YEARS OF AGE AND OLDER. Performed By: #### 2 14871 ####[facility],[address] [place] [address] Glucose mass conc 317 mg/dL High 74 - 106 [facility] Comment on above: Performed By: #### 2 21952 ####[facility],[address] [place] [address] 37253 Potassium molar conc 4.3 mmol/L Normal 3.5 - 5.1 [facility] Comment on above: Performed By: #### 2 81176 ####[facility],[address] [place] [address] 82961 Sodium molar conc 136 mmol/L Normal 136 - 145 [facility] Comment on above: Performed By: #### 2 23691 ####[facility],[address] [place] [address] 35945 Urea nitrogen mass conc 14 mg/dL Normal 6 - 20 [facility] Comment on above: Performed By: #### 2 99363 ####[facility],[address] [place] [address] 02765 CBCon 05-30-2018 Basophils Auto #/vol (Bld) 0.10 x10EE3/UL Normal 0.00 - 0.10 [facility] Comment on above: Performed By: #### 2 63687 ####[facility],[address] [place] [address] 07967 Basophils/100 WBC Auto (Bld) 1.0 % Normal 0.0 - 2.0 [facility] Comment on above: Performed By: #### 2 08116 ####[facility],[address] [place] [address] 75985 CBC Normal [facility] Comment on above: Result Comment: CBC- COMPLETE BLOOD COUNT Performed By: #### 2 93452 ####[facility],[address] [place] [address] 40081 Eosinophils Auto #/vol (Bld) 0.10 x10EE3/UL Normal 0.00 - 0.50 [facility] Comment on above: Performed By: #### 2 64347 ####[facility],[address] [place] [address] 81698 Eosinophils/100 WBC Auto (Bld) 1.4 % Normal 0.0 - 7.0 [facility] Comment on above: Performed By: #### 2 93650 ####[place] [id number] Erythrocyte distribution width Auto Ratio (RBC) 16.6 % High 12.0 - 15.6 [facility] Comment on above: Performed By: #### 2 59337 ####[facility],[address] [place] [address] 04705 Hematocrit Auto Volume Fraction (Bld) 34.5 % Normal 34.0 - 46.0 [facility] Comment on above: Performed By: #### 2 43191 ####[facility],[address] [place] [address] 48841 Hemoglobin mass conc (Bld) 11.4 g/dL Low 12.0 - 16.0 [facility] Comment on above: Performed By: #### 2 37811 ####[facility],[address] [place] [address] 15535 Lymphocytes Auto #/vol (Bld) 1.30 x10EE3/UL Normal 0.80 - 2.80 [facility] Comment on above: Performed By: #### 2 92221 ####[facility],[address] [place] [address] 57122 Lymphocytes/100 WBC Auto (Bld) 18.5 % Low 20.0 - 45.0 [facility] Comment on above: Performed By: #### 2 37249 ####[facility],[address] [place] [address] MANUAL DIFF N/A Normal [facility] Comment on above: Performed By: #### 2 30779 ####[facility],[address] [place] [address] MCH Auto Entitic mass (RBC) 26 pg Low 27 - 33 [facility] Comment on above: Performed By: #### 2 98027 ####[facility],[address] [place] [address] MCHC Auto mass conc (RBC) 33 X10 3 Normal 32 - 36 [facility] Comment on above: Performed By: #### 2 07349 ####[facility],[address] [place] [address] MCV Auto Entitic volume (RBC) 80 fL Normal 80 - 99 [facility] Comment on above: Performed By: #### 2 70802 ####[facility],[address] [place] [address] Monocytes Auto #/vol (Bld) 0.50 x10EE3/UL Normal 0.20 - 1.00 [facility] Comment on above: Performed By: #### 2 54045 ####[facility],[address] [place] [address] MONOS % 7.1 % Normal 0.0 - 10.0 [facility] Comment on above: Performed By: #### 2 42845 ####[facility],[address] [place] [address] Morphology Interp Barak (Bld) N/A Normal [facility] Comment on above: Result Comment: {CD] Performed By: #### 2 04897 ####[place] [address] Neutrophils Auto #/vol (Bld) 5.20 x10EE3/UL Normal 1.50 - 7.10 [facility] Comment on above: Performed By: #### 2 14620 ####[facility],[address] [place] [address] 14771 Neutrophils/100 WBC Auto (Bld) 72.0 % Normal 46.0 - 76.0 [facility] Comment on above: Performed By: #### 2 24451 ####[facility],[address] [place] [address] 58962 Platelet mean volume Auto Entitic volume (Bld) 9.4 fL Normal 6.6 - 10.5 [facility] Comment on above: Result Comment: AUTO MATED DIFFERENTIAL Performed By: #### 2 70214 ####[address] [address] Platelets Auto #/vol (Bld) 195 x10EE3/UL Normal 150 - 450 [facility] Comment on above: Performed By: #### 2 09291 ####[facility],[address] [place] [address] 24360 RBC Auto #/vol (Bld) 4.33 x 10EE6/UL Normal 4.10 - 5.3 0 [facility] Comment on above: Performed By: #### 2 26091 ####[address] [address] WBC Auto #/vol (Bld) 7.3 x 10EE3/UL Normal 4.5 - 10.8 [facility] Comment on above: Performed By: #### 2 72402 ####[address] [address] HGB A1Con 05-30-2018 Hemoglobin A1c/Hemoglobin.total mass fraction (Bld) 9.4 % High 4.4 - 6.4 [facility] Comment on above: Result Comment: {HB] {A1] Performed By: #### 2 33569 ####[place] [id number] Basic Panelon 03-12-2018 Creatinine [Mass/Vol] 0.73 mg/dL Normal 0.51-0.95 [facility] Comment on above: Performed By: #### P 8 #### [facility] [address] [place], [place] [address] Anion gap [Moles/Vol] 9 mmol/L Normal 8-16 [facility] Comment on above: Performed By: #### P 8 #### [facility] [address] [place], [place] [address] Calcium [Mass/Vol] 8.7 mg/dL Normal 8.5-10.1 [facility] Comment on above: Performed By: #### P 8 #### [facility] [address] [place], [place] [address] CO2 [Moles/Vol] 29 mmol/L Normal 21-32 [facility] Comment on above: Performed By: #### P 8 #### [facility] [address] [place], [place] [address] Glucose [Mass/Vol] 173 mg/dL High 70-99 [facility] Comment on above: Performed By: #### P 8 #### [facility] [address] [place], [place] [address] Urea nitrogen [Mass/Vol] 18 mg/dL Normal 7-18 [facility] Comment on above: Performed By: #### P 8 #### [address] [address] Chloride [Moles/Vol] 102 mmol/L Normal 98-107 [facility] [place] [facility] Comment on above: Performed By: #### P 8 #### [facility] [address] [place], [place] [address] Potassium [Moles/Vol] 4.1 mmol/L Normal 3.5-5.1 [facility] Comment on above: Performed By: #### P 8 #### [address] [address] Sodium [Moles/Vol] 136 mmol/L Normal 136-145 [facility] Comment on above: Performed By: #### P 8 #### [facility] [address] [place] [address] Hemogramon 03-12-2018 Erythrocyte distribution width (RBC) [Ratio] 15.6 % High 11.7-14.4 [facility] Comment on above: Performed By: #### C BC1 #### [facility] [address] [place] [address] Hematocrit (Bld) [Volume fraction] 32.5 % Low 34.1-44.9 [facility] Comment on above: Performed By: #### C BC1 #### [facility] [address] [place] [address] Hemoglobin (Bld) [Mass/Vol] 9.9 g/dL Low 11.2-15.7 [facility] Comment on above: Performed By: #### C BC1 #### [facility] [address] [place] [address] MCH (RBC) [Entitic mass] 26.3 pg Normal 25.6-32.2 [facility] Comment on above: Performed By: #### C BC1 #### [facility] [address] [place] [address] MCHC (RBC) [Mass/Vol] 30.5 % Low 31.6-34.8 [facility] Comment on above: Performed By: #### C BC1 #### [facility] [address] [place] [address] MCV (RBC) [Entitic vol] 86.2 fL Normal 79.4-94.8 [facility] Comment on above: Performed By: #### C BC1 #### [facility] [address] [place] [address] Platelet mean volume (Bld) [Entitic vol] 10.7 fL Normal 9.4-12.3 [facility] Comment on above: Performed By: #### C BC1 #### [facility] [address] [place], [place] [address] Platelets (Bld) [#/Vol] 209 thou/cmm Normal 182-369 [facility] Comment on above: Performed By: #### C BC1 #### [facility] [address] [place] [address] RBC (Bld) [#/Vol] 3.77 mil/cmm Low 3.93-5.22 [facility] Comment on above: Performed By: #### C BC1 #### [facility] [address] [place] [address] RDW SD 48.6 fl High 36.4-46.3 [facility] Comment on above: Performed By: #### C BC1 #### [facility] [address] [place] [address] WBC (Bld) [#/Vol] 8.31 thou/cmm Normal 3.98-10.04 [facility] [place] [facility] Comment on above: Performed By: #### C BC1 #### [facility] [address] [place] [address] MDRD GFRon 03-12-2018 GFR/1.73 sq M predicted among non-blacks MDRD (S/P/Bld) [Vol rate/Area] mL/min/{1.73_m2} Normal >60mL/min/1.7 3m2 [facility] Comment on above: Result Comment: If t he patient is , multiply the result by 1.210. Performed By: #### G FR #### [place] [address] Office Visit: Diabetes follo w upon 06-11-2017 Documentation of current medications (procedure) Done Invalid Interpretation Code [facility] Work Phone: PROGRESSon 03-29-2017 PROGRESS HNO ID: [id number]: Brionna Ramírez CTS (Ct)ervice: (none)Author Type: Clinical TechnicianType: Progress NotesFiled: 03/29/2017 12:10 PMNote Text:NAME:Michelle CoteDATE: March 29, 2017CCF#: [id number] Extremity X-Ray(s): Foot, Left and Wt. Bearing COMPLETEDTECH ID SIGN: BRIONNA RAMÍREZ [facility] XR FOOT 3V AP/LAT/OBL LTon 0 03-29-2017 XR FOOT 3V AP/LAT/OBL LT * * *Final Report* * *DATE OF EXAM: Mar 29 2017 10:50AM ELVI 5336 - XR FOOT 3V AP/LAT/OBL LT / REASON: P71-Aswa, unspecified * * * * Physician Interpretation [...] OLIVEIRA MD on Mar 29 2017 11:50AM [id number] SIACN [facility] Office Visit: Diabetes follo w upon 11-27-2016 Alcoholism counseling (procedure) no Invalid Interpretation Code [facility] Work Phone: Dietary management education, guidance, and counseling (procedure) yes Invalid Interpretation Code [facility] Work Phone: Fall risk assessment Fall risk assessment Invali d Interpretation Code [facility] Work Phone: Tobacco smoking status NHIS Never Invalid Interpretation Code [facility] Work Phone: Tobacco use HS Never smoker Invalid Interpretation Code [facility] Work Phone: Chart Maintenanceon 09-11-19 17 Triglyceride 84 mg/dL Invalid Interpretation Code [facility] Work Phone: Lab Report: Vitamin D 1,25-D ihydroxyon 09-07-2016 VITD 1,25 99806 48.7 Invalid Interpretation Code 19.9-79.3 [facility] Work Phone: Lab Report: Comprehensive Me tabolic Profilon 09-04-2016 Alanine aminotransferase (ALT) 24 U/L Invalid Interpretation Code 12-78 [facility] Work Phone: Albumin 3.7 g/dL Invalid Interpretation Code 3.4-5.0 [facility] Work Phone: Albumin/Globulin Ratio 1 {ratio} Invalid Interpretation Code 0.9-2.4 [facility] Work Phone: Alkaline phosphatase (ALP) 105 U/L Invalid Interpretation Code 45-117 [facility] Work Phone: Anion gap 8 mmol/L Invalid Interpretation Code 5-15 [facility] Work Phone: Aspartate aminotransferase (AST) 14 U/L Low 15-37 [facility] Work Phone: Bilirubin (total) 0.40 mg/dL Invalid Interpretation Code 0.20-1.00 [facility] Work Phone: BUN/Creatinine Ratio 12.6 RATIO Invalid Interpretation Code 10-20 [facility] Work Phone: Calcium 8.6 mg/dL Invalid Interpretation Code 8.5-10.1 [facility] Work Phone: Chloride 101 mmol/L Invalid Interpretation Code 98-107 [facility] Work Phone: CO2 28.0 mmol/L Invalid Interpretation Code 21.0-32.0 [facility] Work Phone: Creatinine 0.71 mg/dL Invalid Interpretation Code 0.55-1.02 [facility] Work Phone: eGFR (non-black) 111 mL/min/{1.73_m2} Invalid Interpretation Code >60 [facility] Work Phone: eGFR (non-black) 92 mL/min/{1.73_m2} Invalid Interpretation Code >60 [facility] Work Phone: Globulin 3.7 g/dL High 2.3-3.5 [facility] Work Phone: Glucose mass conc 111 mg/dL High 70-110 [facility] Work Phone: Potassium molar conc 4.0 mmol/L Invalid Interpretation Code 3.5-5.1 [facility] Work Phone: Protein 7.4 g/dL Invalid Interpretation Code 6.4-8.2 [facility] Work Phone: Sodium 137 mmol/L Invalid Interpretation Code 136-145 [facility] Work Phone: Urea nitrogen 9 mg/dL Invalid Interpretation Code 7-18 [facility] Work Phone: Lab Report: Hemoglobin A1con 09-04-2016 Hemoglobin A1c/Hemoglobin.total mass fraction (Bld) 6.7 % High 4.2-6.3 [facility] Work Phone: Lab Report: Lipid Profileon 09-04-2016 Cholesterol 122 mg/dL Invalid Interpretation Code 200 [facility] Work Phone: HDL Cholesterol 43 mg/dL Invalid Interpretation Code [facility] Work Phone: LDL Cholesterol 57 mg/dL Invalid Interpretation Code 0-130 [facility] Work Phone: Triglyceride 108 mg/dL Invalid Interpretation Code [facility] Work Phone: very low density lipoproteins 22 mg/dL Invalid Interpretation Code 5-40 [facility] Work Phone: Lab Report: Microalb:Creat R atio,Random URon 09-04-2016 ACR (microalbumin/creatinin e) ratio 5.3 MG/G CRE Invalid Interpretation Code <30 mg/g CRE [facility] Work Phone: Urine, creatinine 153.00 mg/dL Invalid Interpretation Code NO RANGE EST. [facility] Work Phone: Urine, microalbumin 0.81 mg/dL Invalid Interpretation Code Units converted. See lab report for original value. [facility] Work Phone: Lab Report: Thyroid Stim Hor concepcion (TSH)on 09-04-2016 Thyroid stimulating hormone (TSH) 0.68 u[iU]/mL Invalid Interpretation Code 0.358-3.74 [facility] Work Phone: Office Visit: Transition of care [facility] 09-04-2016 Adult depression screening assessment Adult depression screening assessment Invalid Interpretation Code [facility] Work Phone: Office Visit: Transition of care [facility] 07-16-2016 Breast Mammogram screening Normal Bilateral Invalid Interpretation Code [facility] Work Phone: EKG Report: [facility] ECG Obse rvationson 03-16-2014 QTc Cantu 470 ms Invalid Interpretation Code [facility] Work Phone: Replaced Document: [facility] E CG Observationson 03-16-2014 EKG QRS axis 66 deg Invalid Interpretation Code [facility] Work Phone: Interpretation Electronic ventricular pacemaker -possibly demand type Pacemaker ECG, No further analysis INSUFFICIENT DATA Invalid Interpretation Code [facility] Work Phone: P [place] 30 deg Invalid Interpretation Code [facility] Work Phone: [place] Interval 98 ms Invalid Interpretation Code [facility] Work Phone: Pulse (Heart Rate) 68 /min Invalid Interpretation Code [facility] Work Phone: Pulse (Heart Rate) 470 ms Invalid Interpretation Code [facility] Work Phone: QRS Duration 120 ms Invalid Interpretation Code [facility] Work Phone: QT Interval new path ms Invalid Interpretation Code [facility] Work Phone: T [place] 114 deg Invalid Interpretation Code [facility] Work Phone: Clinical Lists Update: Prelo [employer] 04-22-2013 Erythrocytes (RBC) 3.79 10*6/uL [facility] Work Phone: Hematocrit (HCT) 33.6 % Low [facility] Work Phone: Hemoglobin mass conc (Bld) 11.0 g/dL Low [facility] Work Phone: MCH 29.0 pg Invalid Interpretation Code [facility] Work Phone: MCHC mass conc (RBC) 32.7 g/dL Invalid Interpretation Code [facility] Work Phone: MCV 88.7 fL Invalid Interpretation Code [facility] Work Phone: Platelets 173 10*3/mm3 Invalid Interpretation Code [facility] Work Phone: WBC (Leukocytes) 8.9 10*3/uL Invalid Interpretation Code [facility] Work Phone: Clinical Lists Update: [employer] 04-16-2013 Thyroxine (T4) 8.8 ug/dL Invalid Interpretation Code [facility] Work Phone: Office Visit: Transition of care [facility] 07-15-2012 Colonoscopy (procedure) Colonoscopy (procedure) Invalid Interpretation Code [facility] Work Phone: ECG B/O W INTERP (MED OFFICE ) [facility] Vital Signs Date Time Vital Sign Value Performing Clinician Facility 12-10-2024 10:22-0400 Body height 175.[address] Lisseth Peñaloza MD Work Phone: [facility] 12-10-2024 10:22-0400 Body mass index (BMI) [Ratio] 38.4 kg/m2 Dr. Lisseth Peñaloza MD Work Phone: [facility] 12-10-2024 10:22-0400 Body weight 117.[address] Lisseth Peñaloza MD Work Phone: [facility] 12-10-2024 10:22-0400 Diastolic blood pressure 78 mm[Hg] Dr. Lisseth Peñaloza MD Work Phone: [facility] 12-10-2024 10:22-0400 Heart rate 83 /min Dr. Lisseth Peñaloza MD Work Phone: [facility] 12-10-2024 10:22-0400 SaO2% (BldA) [Mass fraction] 92 % Dr. Lisseth Peñaloza MD Work Phone: [facility] 12-10-2024 10:22-0400 Systolic blood pressure 128 mm[Hg] Dr. Lisseth Peñaloza MD Work Phone: [facility] 12-09-2024 11:12-0400 Body height 175.[address] Lisseth Peñaloza MD Work Phone: [facility] 12-09-2024 11:12-0400 Body mass index (BMI) [Ratio] 38 kg/m2 Dr. Lisseth Peñaloza MD Work Phone: [facility] 12-09-2024 11:12-0400 Body temperature 96.7 [degF] Dr. Lisseth Peñaloza MD Work Phone: [facility] 12-09-2024 11:12-0400 Body weight 116.[address] Lisseth Peñaloza MD Work Phone: [facility] 12-09-2024 11:12-0400 Diastolic blood pressure 64 mm[Hg] Dr. Lisseth Peñaloza MD Work Phone: [facility] 12-09-2024 11:12-0400 Heart rate 105 /min Dr. Lisseth Peñaloza MD Work Phone: [facility] 12-09-2024 11:12-0400 Respiratory rate 16 /min Dr. Lisseth Peñaloza MD Work Phone: [facility] 12-09-2024 11:12-0400 SaO2% (BldA) [Mass fraction] 93 % Dr. Lisseth Peñaloza MD Work Phone: [facility] 12-09-2024 11:12-0400 Systolic blood pressure 118 mm[Hg] Dr. Lisseth Peñaloza MD Work Phone: [facility] 11-28-2024 03:21-0400 Body temperature 98.1 [degF] No Primary Care Physician [facility] 11-28-2024 03:21-0400 Diastolic blood pressure 71 mm[Hg] No Primary Care Physician [facility] 11-28-2024 03:21-0400 Heart rate 81 /min No Primary Care Physician [facility] 11-28-2024 03:21-0400 Respiratory rate 16 /min No Primary Care Physician [facility] 11-28-2024 03:21-0400 SaO2% (BldA) [Mass fraction] 99 % No Primary Care Physician [facility] 11-28-2024 03:21-0400 Systolic blood pressure 148 mm[Hg] No Primary Care Physician [facility] 11-27-2024 21:28-0400 Body height 175.26 cm No Primary Care Physician [facility] 11-27-2024 21:28-0400 Body mass index (BMI) [Ratio] 39.7 kg/m2 No Primary Care Physician [facility] 11-27-2024 21:28-0400 Body weight 122.01 kg No Primary Care Physician [facility] 11-26-2024 14:47-0400 Body temperature 98 [degF] No Primary Care Physician [facility] 11-26-2024 14:47-0400 Diastolic blood pressure 65 mm[Hg] No Primary Care Physician [facility] 11-26-2024 14:47-0400 Heart rate 74 /min No Primary Care Physician [facility] 11-26-2024 14:47-0400 Respiratory rate 14 /min No Primary Care Physician [facility] 11-26-2024 14:47-0400 SaO2% (BldA) [Mass fraction] 95 % No Primary Care Physician [facility] 11-26-2024 14:47-0400 Systolic blood pressure 116 mm[Hg] No Primary Care Physician [facility] 11-26-2024 03:42-0400 Body mass index (BMI) [Ratio] 40.4 kg/m2 No Primary Care Physician [facility] 11-26-2024 03:42-0400 Body weight 124.3 kg No Primary Care Physician [facility] 11-25-2024 14:58-0400 Body height 175.26 cm No Primary Care Physician [facility] 11-23-2024 08:10-0400 Inhaled oxygen flow rate 2 L/min No Primary Care Physician [facility] 11-20-2024 18:00-0400 Body temperature 101.6 [degF] No Primary Care Physician [facility] 11-20-2024 18:00-0400 Diastolic blood pressure 75 mm[Hg] No Primary Care Physician [facility] 11-20-2024 18:00-0400 Heart rate 126 /min No Primary Care Physician [facility] 11-20-2024 18:00-0400 Inhaled oxygen flow rate 2 L/min No Primary Care Physician [facility] 11-20-2024 18:00-0400 Respiratory rate 28 /min No Primary Care Physician [facility] 11-20-2024 18:00-0400 SaO2% (BldA) [Mass fraction] 94 % No [facility] [facility] 11-20-2024 18:00-0400 Systolic blood pressure 120 mm[Hg] No Primary Care Physician [facility] 11-20-2024 14:13-0400 Body height 175.26 cm No Primary Care Physician [facility] 11-20-2024 14:13-0400 Body mass index (BMI) [Ratio] 40.6 kg/m2 No Primary Care Physician [facility] 11-20-2024 14:13-0400 Body weight 125 kg No Primary Care Physician [facility] 11-07-2024 19:47-0400 Body temperature 98.9 [degF] No Primary Care Physician [facility] 11-07-2024 19:47-0400 Diastolic blood pressure 69 mm[Hg] No Primary Care Physician [facility] 11-07-2024 19:47-0400 Heart rate 70 /min No Primary Care Physician [facility] 11-07-2024 19:47-0400 Respiratory rate 14 /min No Primary Care Physician [facility] 11-07-2024 19:47-0400 SaO2% (BldA) [Mass fraction] 95 % No Primary Care Physician [facility] 11-07-2024 19:47-0400 Systolic blood pressure 127 mm[Hg] No Primary Care Physician [facility] 11-07-2024 19:15-0400 Body mass index (BMI) [Ratio] 38.5 kg/m2 No Primary Care Physician [facility] 11-07-2024 19:15-0400 Body weight 118.16 kg No Primary Care Physician [facility] 11-04-2024 07:37-0400 Body mass index (BMI) [Ratio] 38.8 kg/m2 No Primary Care Physician [facility] 11-04-2024 07:37-0400 Body weight 119.29 kg No Primary Care Physician [facility] 11-04-2024 07:37-0400 Diastolic blood pressure 66 mm[Hg] No Primary Care Physician [facility] 11-04-2024 07:37-0400 Heart rate 75 /min No Primary Care Physician [facility] 11-04-2024 07:37-0400 Respiratory rate 18 /min No Primary Care Physician [facility] 11-04-2024 07:37-0400 SaO2% (BldA) [Mass fraction] 93 % No Primary Care Physician [facility] 11-04-2024 07:37-0400 Systolic blood pressure 126 mm[Hg] No Primary Care Physician [facility] 10-19-2024 10:26-0400 Body mass index (BMI) [Ratio] 39.1 kg/m2 No Primary Care Physician [facility] 10-19-2024 10:26-0400 Body temperature 97.6 [degF] No Primary Care Physician [facility] 10-19-2024 10:26-0400 Body weight 120.2 kg No Primary Care Physician [facility] 10-19-2024 10:26-0400 Diastolic blood pressure 80 mm[Hg] No Primary Care Physician [facility] 10-19-2024 10:26-0400 Heart rate 73 /min No Primary Care Physician [facility] 10-19-2024 10:26-0400 Respiratory rate 14 /min No Primary Care Physician [facility] 10-19-2024 10:26-0400 SaO2% (BldA) [Mass fraction] 98 % No Primary Care Physician [facility] 10-19-2024 10:26-0400 Systolic blood pressure 134 mm[Hg] No Primary Care Physician [facility] 10-15-2024 10:10-0400 Body mass index (BMI) [Ratio] 39 kg/m2 No Primary Care Physician [facility] 10-15-2024 10:10-0400 Body weight 119.91 kg No Primary Care Physician [facility] 10-15-2024 10:10-0400 Diastolic blood pressure 74 mm[Hg] No Primary Care Physician [facility] 10-15-2024 10:10-0400 Heart rate 77 /min No Primary Care Physician [facility] 10-15-2024 10:10-0400 SaO2% (BldA) [Mass fraction] 94 % No Primary Care Physician [facility] 10-15-2024 10:10-0400 Systolic blood pressure 130 mm[Hg] No Primary Care Physician [facility] 09-07-2024 11:22-0500 Body mass index (BMI) [Ratio] 40.3 kg/m2 No Primary Care Physician [facility] 09-07-2024 11:22-0500 Body temperature 97.8 [degF] No Primary Care Physician [facility] 09-07-2024 11:22-0500 Body weight 123.83 kg No Primary Care Physician [facility] 09-07-2024 11:22-0500 Diastolic blood pressure 74 mm[Hg] No Primary Care Physician [facility] 09-07-2024 11:22-0500 Heart rate 85 /min No Primary Care Physician [facility] 09-07-2024 11:22-0500 Respiratory rate 17 /min No Primary Care Physician [facility] 09-07-2024 11:22-0500 SaO2% (BldA) [Mass fraction] 97 % No Primary Care Physician [facility] 09-07-2024 11:22-0500 Systolic blood pressure 132 mm[Hg] No Primary Care Physician [facility] 08-05-2024 14:23-0500 Body mass index (BMI) [Ratio] 39.9 kg/m2 No Primary Care Physician [facility] 08-05-2024 14:23-0500 Body temperature 97.9 [degF] No Primary Care Physician [facility] 08-05-2024 14:23-0500 Body weight 122.46 kg No Primary Care Physician [facility] 08-05-2024 14:23-0500 Diastolic blood pressure 80 mm[Hg] No Primary Care Physician [facility] 08-05-2024 14:23-0500 Heart rate 103 /min No Primary Care Physician [facility] 08-05-2024 14:23-0500 Respiratory rate 16 /min No Primary Care Physician [facility] 08-05-2024 14:23-0500 SaO2% (BldA) [Mass fraction] 93 % No Primary Care Physician [facility] 08-05-2024 14:23-0500 Systolic blood pressure 138 mm[Hg] No Primary Care Physician [facility] 02-26-2024 14:00-0400 Body height 175.3 cm [facility] 02-26-2024 14:00-0400 Body mass index (BMI) [Ratio] 36.03 kg/m2 [facility] 02-26-2024 14:00-0400 Body temperature 97.59 [degF] [facility] 02-26-2024 14:00-0400 Body weight 110.68 kg [facility] 02-26-2024 14:00-0400 Diastolic blood pressure 78 mm[Hg] [facility] 02-26-2024 14:00-0400 Heart rate 72 /min [facility] 02-26-2024 14:00-0400 Respiratory rate 16 /min [facility] 02-26-2024 14:00-0400 SaO2% (BldA) [Mass fraction] 97 % [facility] 02-26-2024 14:00-0400 Systolic blood pressure 125 mm[Hg] [facility] 01-29-2024 11:21-0400 Body height 175.3 cm [facility] 01-29-2024 11:21-0400 Body mass index (BMI) [Ratio] 35.59 kg/m2 [facility] 01-29-2024 11:21-0400 Body temperature 96.6 [degF] [facility] 01-29-2024 11:21-0400 Body weight 109.32 kg [facility] 01-29-2024 11:21-0400 Diastolic blood pressure 69 mm[Hg] [facility] 01-29-2024 11:21-0400 Heart rate 90 /min [facility] 01-29-2024 11:21-0400 Systolic blood pressure 113 mm[Hg] [facility] 12-24-2023 13:18-0400 Body height 175.3 cm Manny Shields MD Work Phone: [facility] 12-24-2023 13:18-0400 Body mass index (BMI) [Ratio] 35.24 kg/m2 Manny Shields MD Work Phone: [facility] 12-24-2023 13:18-0400 Body temperature 97.59 [degF] Manny Shields MD Work Phone: [facility] 12-24-2023 13:18-0400 Body weight 108.23 kg Manny Shields MD Work Phone: [facility] 12-24-2023 13:18-0400 Diastolic blood pressure 63 mm[Hg] Manny Shields MD Work Phone: [facility] 12-24-2023 13:18-0400 Heart rate 77 /min Manny Shields MD Work Phone: [facility] 12-24-2023 13:18-0400 Respiratory rate 16 /min Manny Shields MD Work Phone: [facility] 12-24-2023 13:18-0400 SaO2% (BldA) [Mass fraction] 97 % Manny Shields MD Work Phone: [facility] Comment on above: RA 12-24-2023 13:18-0400 Systolic blood pressure 119 mm[Hg] Manny Shields MD Work Phone: [facility] 11-14-2023 13:20-0400 Body height 175.3 cm [facility] 11-14-2023 13:20-0400 Body mass index (BMI) [Ratio] 35.29 kg/m2 [facility] 11-14-2023 13:20-0400 Body temperature 97.3 [degF] [facility] 11-14-2023 13:20-0400 Body weight 108.41 kg [facility] 11-14-2023 13:20-0400 Diastolic blood pressure 71 mm[Hg] [facility] 11-14-2023 13:20-0400 Heart rate 84 /min [facility] 11-14-2023 13:20-0400 Systolic blood pressure 119 mm[Hg] [facility] 10-30-2023 13:51-0400 Body height 175.3 cm [facility] 10-30-2023 13:51-0400 Body temperature 97.39 [degF] [facility] 10-30-2023 13:51-0400 Body weight 107.5 kg [facility] 10-30-2023 13:51-0400 Diastolic blood pressure 83 mm[Hg] [facility] 10-30-2023 13:51-0400 Systolic blood pressure 130 mm[Hg] [facility] 10-06-2023 13:22-0400 Body height 175.26 cm [facility] 10-06-2023 13:22-0400 Body temperature 98.5 [degF] [facility] 10-06-2023 13:22-0400 Diastolic blood pressure 100 mm[Hg] [facility] 10-06-2023 13:22-0400 Heart rate 75 /min [facility] 10-06-2023 13:22-0400 Respiratory rate 18 /min [facility] 10-06-2023 13:22-0400 SaO2% (BldA) [Mass fraction] 95 % [facility] 10-06-2023 13:22-0400 Systolic blood pressure 145 mm[Hg] [facility] 09-12-2023 15:40-0500 Body height 175.3 cm [facility] 09-12-2023 15:40-0500 Body temperature 96.8 [degF] [facility] 09-12-2023 15:40-0500 Body weight 109.32 kg [facility] 09-12-2023 15:40-0500 Diastolic blood pressure 70 mm[Hg] [facility] 09-12-2023 15:40-0500 Systolic blood pressure 115 mm[Hg] [facility] 08-30-2023 14:37-0500 Body height 175.3 cm Williams Rubin MD Work Phone: [facility] 08-30-2023 14:37-0500 Body temperature 97 [degF] Williams Rubin MD Work Phone: [facility] 08-30-2023 14:37-0500 Body weight 106.96 kg Williams Rubin MD Work Phone: [facility] 08-30-2023 14:37-0500 Diastolic blood pressure 77 mm[Hg] Williams Rubin MD Work Phone: [facility] 08-30-2023 14:37-0500 Heart rate 81 /min Williams Rubin MD Work Phone: [facility] 08-30-2023 14:37-0500 SaO2% (BldA) [Mass fraction] 95 % Williams Rubin MD Work Phone: [facility] 08-30-2023 14:37-0500 Systolic blood pressure 118 mm[Hg] Williams Rubin MD Work Phone: [facility] 03-29-2023 14:43-0400 Body height 175.3 cm Jay Her DO Work Phone: [facility] 03-29-2023 14:43-0400 Body weight 109.77 kg Jay Her DO Work Phone: [facility] 03-29-2023 14:43-0400 Diastolic blood pressure 77 mm[Hg] Jay Her DO Work Phone: [facility] 03-29-2023 14:43-0400 Systolic blood pressure 134 mm[Hg] Jay Her DO Work Phone: [facility] 03-15-2023 15:43-0400 Diastolic blood pressure 75 mm[Hg] Manny Shields MD Work Phone: [facility] 03-15-2023 15:43-0400 Heart rate 65 /min Manny Shields MD Work Phone: [facility] 03-15-2023 15:43-0400 Systolic blood pressure 130 mm[Hg] Manny Shields MD Work Phone: [facility] 03-15-2023 14:09-0400 Body height 175.3 cm Manny Shields MD Work Phone: [facility] 03-15-2023 14:09-0400 Body temperature 97.59 [degF] Manny Shields MD Work Phone: [facility] 03-15-2023 14:09-0400 Body weight 109.77 kg Manny Shields MD Work Phone: [facility] 03-15-2023 14:09-0400 Respiratory rate 18 /min Manny Shields MD Work Phone: [facility] 03-15-2023 14:09-0400 SaO2% (BldA) [Mass fraction] 97 % Manny Shields MD Work Phone: [facility] 03-01-2023 [id number] Body height 175.3 cm Williams Rubin MD Work Phone: [facility] 03-01-2023 14:07-0400 Body temperature 97 [degF] Williams Rubin MD Work Phone: [facility] 03-01-2023 14:07-0400 Body weight 111.22 kg Williams Rubin MD Work Phone: [facility] 03-01-2023 14:07-0400 Diastolic blood pressure 72 mm[Hg] Williams Rubin MD Work Phone: [facility] 03-01-2023 14:07-0400 Heart rate 56 /min Williams Rubin MD Work Phone: [facility] 03-01-2023 14:07-0400 Respiratory rate 18 /min Williams Rubin MD Work Phone: [facility] 03-01-2023 14:07-0400 SaO2% (BldA) [Mass fraction] 97 % Williams Rubin MD Work Phone: [facility] 03-01-2023 14:07-0400 Systolic blood pressure 132 mm[Hg] Williams Rubin MD Work Phone: [facility] 01-29-2023 14:25-0400 Body height 175.3 cm Ronny Wheeler MD Work Phone: [facility] 01-29-2023 14:25-0400 Body weight 110.22 kg Ronny Wheeler MD Work Phone: [facility] 01-29-2023 14:25-0400 Diastolic blood pressure 77 mm[Hg] Ronny Wheeler MD Work Phone: [facility] 01-29-2023 14:25-0400 Heart rate 59 /min Ronny Wheeler MD Work Phone: [facility] 01-29-2023 14:25-0400 Respiratory rate 18 /min Ronny Wheeler MD Work Phone: [facility] 01-29-2023 14:25-0400 SaO2% (BldA) [Mass fraction] 95 % Ronny Wheeler MD Work Phone: [facility] 01-29-2023 14:25-0400 Systolic blood pressure 132 mm[Hg] Ronny Wheeler MD Work Phone: [facility] 01-22-2023 13:58-0400 Body temperature 98.01 [degF] Jay Her DO Work Phone: [facility] 01-22-2023 13:58-0400 Body weight 111.13 kg Jay Her DO Work Phone: [facility] 01-22-2023 13:58-0400 Diastolic blood pressure 70 mm[Hg] Jay Her DO Work Phone: [facility] 01-22-2023 13:58-0400 Systolic blood pressure 121 mm[Hg] Jay Her DO Work Phone: [facility] 05-02-2022 10:41-0400 Body temperature 97.4 [degF] RUY Rivas Work Phone: [place] Work Phone: 05-02-2022 10:41-0400 Diastolic blood pressure 68 mm[Hg] RUY Rivas Work Phone: [facility] Work Phone: 05-02-2022 10:41-0400 Heart rate 82 /min [employer] Ha Rivas Work Phone: [place] Work Phone: 05-02-2022 10:41-0400 Respiratory rate 18 /min [employer] Ha Rivas Work Phone: [facility] Work Phone: 05-02-2022 10:41-0400 Systolic blood pressure 97 mm[Hg] [employer] Ha Rivas Work Phone: [place] Work Phone: 04-30-2022 13:25-0400 Body height 175.26 cm [employer] Ha Rivas Work Phone: [facility] Work Phone: 04-30-2022 13:25-0400 Body mass index (BMI) [Ratio] 38.3 kg/m2 [employer] Ha Rivas Work Phone: [facility] Work Phone: 04-30-2022 13:25-0400 Body temperature 97.5 [degF] [employer] Ha Rivas Work Phone: [place] Work Phone: 04-30-2022 13:25-0400 Body weight 117.9 kg [employer] Ha Rivas Work Phone: [facility] Work Phone: 04-30-2022 13:25-0400 Diastolic blood pressure 65 mm[Hg] [employer] Ha Rivas Work Phone: [facility] [employer] Work Phone: 04-30-2022 13:25-0400 Heart rate 60 /min [employer] Ha Rivas Work Phone: [facility] Work Phone: 04-30-2022 13:25-0400 Respiratory rate 18 /min [employer] Ha Rivas Work Phone: [facility] Work Phone: 04-30-2022 13:25-0400 SaO2% (BldA) [Mass fraction] 98 % [employer] Ha Rivas Work Phone: [place] Work Phone: 04-30-2022 13:25-0400 Systolic blood pressure 123 mm[Hg] [employer] Ha Rivas Work Phone: [place] Work Phone: 04-25-2022 10:27-0400 Body temperature 97.2 [degF] [employer] Ha Rivas Work Phone: [place] Work Phone: 04-25-2022 10:27-0400 Diastolic blood pressure 57 mm[Hg] [employer] Ha Rivas Work Phone: [facility] [employer] Work Phone: 04-25-2022 10:27-0400 Heart rate 78 /min [employer] Ha Rivas Work Phone: [place] Work Phone: 04-25-2022 10:27-0400 Respiratory rate 12 /min [employer] Ha Rivas Work Phone: [facility] Work Phone: 04-25-2022 10:27-0400 Systolic blood pressure 153 mm[Hg] [employer] Ha Rivas Work Phone: [facility] Work Phone: 04-25-2022 10:17-0400 Body height 175.26 cm [employer] Ha Rivas Work Phone: [place] Work Phone: 04-25-2022 10:17-0400 Body mass index (BMI) [Ratio] 36.9 kg/m2 [employer] Ha Rivas Work Phone: [place] Work Phone: 04-25-2022 10:17-0400 Body weight 113.39 kg [employer] Ha Rivas Work Phone: [place] Work Phone: 04-09-2022 10:40-0400 Diastolic blood pressure 82 mm[Hg] Milka Rodriguez MD Work Phone: [facility] 04-09-2022 10:40-0400 Systolic blood pressure 140 mm[Hg] Milka Rodriguez MD Work Phone: [facility] 04-09-2022 10:29-0400 Body height 175.3 cm Milka Rodriguez MD Work Phone: [facility] 04-09-2022 10:29-0400 Body mass index (BMI) [Ratio] 37.1 kg/m2 Milka Rodriguez MD Work Phone: [facility] 04-09-2022 10:29-0400 Body weight 113.94 kg Milka Rodriguez MD Work Phone: [facility] 04-09-2022 10:29-0400 Heart rate 59 /min Milka Rodriguez MD Work Phone: [facility] 04-09-2022 10:29-0400 SaO2% (BldA) [Mass fraction] 95 % Milka Rodriguez MD Work Phone: [facility] 04-03-2022 12:02-0400 Body height 175.26 cm Ha [...] Phone: [facility] Work Phone: 04-03-2022 12:02-0400 [place] Body Weight 145 [lb_av] Ha DURAN Work Phone: [facility] Work Phone: 02-15-2022 11:46-0400 Body height 175.26 cm Janice Efrain [facility] 02-15-2022 11:46-0400 Body mass index (BMI) [Ratio] 36.62 kg/m2 Janice Efrain [facility] 02-15-2022 11:46-0400 Body weight 112.49 kg Janice Efrain [facility] 02-15-2022 11:46-0400 Diastolic blood pressure 56 mm[Hg] Janice Efrain [facility] 02-15-2022 11:46-0400 Heart rate 58 /min Janice Efrain [facility] 02-15-2022 11:46-0400 Systolic blood pressure 140 mm[Hg] Janice Efrain [facility] 01-25-2022 10:59-0400 Body height 175.26 cm Ha DURAN Work Phone: [facility] Work Phone: Comment on above: 5'9 01-25-2022 [...] Phone: [facility] Work Phone: 01-25-2022 10:59-0400 [place] Body Weight 145 [lb_av] Ha DURAN Work Phone: [facility] Work Phone: 01-25-2022 10:59-0400 SaO2% (BldA) [Mass fraction] 97 % Ha DURAN Work Phone: [facility] Work Phone: 01-25-2022 10:59-0400 Systolic blood pressure 140 mm[Hg] Ha DURAN Work Phone: [facility] Work Phone: 01-11-2022 13:19-0400 Body height 175.26 cm Ha DURAN Work Phone: [facility] Work Phone: Comment on above: 5'01-11-2022 13:19-0400 Body height 175.3 cm Ha DURAN Work Phone: [facility] Work Phone: 01-11-2022 13:19-0400 Body temperature 96.8 [degF] Ha DURAN Work Phone: [facility] Work Phone: 01-11-2022 13:19-0400 [place] Body Weight 145 [lb_av] Ha DURAN Work Phone: [facility] Work Phone: 12-12-2021 11:47-0400 Body height 175.26 cm Ha DURAN Work Phone: [facility] Work Phone: Comment on above: 5'12-12-2021 11:47-0400 Body height 175.3 cm Ha DURAN Work Phone: [facility] Work Phone: 12-12-2021 11:47-0400 Body temperature 97.5 [degF] Ha Evelyn DURAN Work Phone: [facility] Work Phone: 12-12-2021 11:47-0400 [place] Body Weight 145 [lb_av] Ha DURAN Work Phone: [facility] Work Phone: 12-06-2021 11:50-0400 Body height 175.26 cm Janice Efrain [employer] 12-06-2021 11:50-0400 Body mass index (BMI) [Ratio] 34.85 kg/m2 Janice Efrain [facility] 12-06-2021 11:50-0400 Body weight 107.05 kg Janice Efrain [facility] 12-06-2021 11:19-0400 Body height 175.26 cm Janice Efrain [facility] 12-06-2021 11:19-0400 Body mass index (BMI) [Ratio] 34.85 kg/m2 Janice Efrain [facility] 12-06-2021 11:19-0400 Body weight 107.05 [facility]-06-[facility]21 11:19-0400 Diastolic blood pressure 62 mm[Hg] Janice Efrain [facility] 12-06-2021 11:19-0400 Heart rate 65 /min Janice Efrain [facility] 12-06-2021 11:19-0400 Systolic blood pressure 104 mm[Hg] [facility] 11-13-2021 15:28-0400 Body height 175.26 cm Ha DURAN Work Phone: [facility] Work Phone: Comment on above: 5'9 11-13-2021 15:28-0400 Body height 175.3 cm Ha DURAN Work Phone: [facility] Work Phone: 11-13-2021 15:28-0400 Body mass index (BMI) [Ratio] 34 kg/m2 Ha DURAN Work Phone: [facility] Work Phone: 11-13-2021 15:28-0400 Body temperature 97.1 [degF] Ha DURAN Work Phone: [facility] Work Phone: 11-13-2021 15:28-0400 Body weight 104.33 kg Ha DURAN Work Phone: [facility] Work Phone: 11-13-2021 15:28-0400 [place] Body Weight 145 [lb_av] Ha DURAN Work Phone: [facility] Work Phone: 10-13-2021 11:12-0400 Body height 175.3 cm Abbey Oliveira CNP Work Phone: [facility] 10-13-2021 11:12-0400 Body mass index (BMI) [Ratio] 33.68 kg/m2 Abbey Oliveira CNP Work Phone: [facility] 10-13-2021 11:12-0400 Body weight 103.47 kg Abbey Oliveira CNP Work Phone: [facility] 10-13-2021 11:12-0400 Diastolic blood pressure 55 mm[Hg] Abbey Oliveira CNP Work Phone: [facility] 10-13-2021 11:12-0400 Heart rate 62 /min Abbey Oliveira CNP Work Phone: [facility] 10-13-2021 11:12-0400 SaO2% (BldA) [Mass fraction] 96 % Abbey Oliveira CNP Work Phone: [facility] 10-13-2021 11:12-0400 Systolic blood pressure 114 mm[Hg] Abbey Oliveira CNP Work Phone: [facility] 10-09-2021 17:03-0400 Body height 175.26 cm Ha DURAN Work Phone: [facility] Work Phone: Comment on above: 5'9 10-09-2021 17:03-0400 Body height 175.3 cm Ha DURAN Work Phone: [facility] Work Phone: 10-09-2021 17:03-0400 Body mass index (BMI) [Ratio] 34.3 kg/m2 Ha DURAN Work Phone: [facility] Work Phone: 10-09-2021 17:03-0400 Body temperature 96.7 [degF] Ha DURAN Work Phone: [facility] Work Phone: 10-09-2021 17:03-0400 Body weight 105.35 kg Ha DURAN Work Phone: [facility] Work Phone: 10-09-2021 17:03-0400 [place] Body Weight 145 [lb_av] Ha DURAN Work Phone: [facility] Work Phone: 10-03-2021 15:02-0400 Body height 175.26 cm Ha DURAN Work Phone: [facility] Work Phone: Comment on above: 5'9 10-03-2021 15:02-0400 Body height 175.3 cm Ha DURAN Work Phone: [facility] Work Phone: 10-03-2021 15:02-0400 Body mass index (BMI) [Ratio] 34.8 kg/m2 aH DURAN Work Phone: [facility] Work Phone: 10-03-2021 15:02-0400 Body temperature 96.9 [degF] Ha DURAN Work Phone: [facility] Work Phone: 10-03-2021 15:02-0400 Body weight 107 kg Ha DURAN Work Phone: [facility] Work Phone: 10-03-2021 15:02-0400 Diastolic blood pressure 70 mm[Hg] Ha DURAN Work Phone: Gisselle LemosP.M. Work Phone: 10-03-2021 15:02-0400 Heart rate 75 /min Ha DURAN Work Phone: Carrie Lemos.P.M. Work Phone: 10-03-2021 15:02-0400 [place] Body Weight 145 [lb_av] Ha DURAN Work Phone: Gisselle LemosP.M. Work Phone: 10-03-2021 15:02-0400 SaO2% (BldA) [Mass fraction] 92 % Ha DURAN Work Phone: Gisselle LemosP.M. Work Phone: 10-03-2021 15:02-0400 Systolic blood pressure 120 mm[Hg] Ha DURAN Work Phone: Gisselle LemosP.M. Work Phone: 08-25-2021 10:37-0500 Body height 177.8 cm RUY Rivas Work Phone: [place] Work Phone: 08-03-2021 13:25-0500 Body height 175.26 cm Janice Efrain [facility] 08-03-2021 13:25-0500 Body mass index (BMI) [Ratio] 35.73 kg/m2 Janice Efrain [facility] 08-03-2021 13:25-0500 Body weight 109.77 kg Janice Efrain [facility] 08-03-2021 12:58-0500 Body height 175.26 cm Janice Efrain [facility] 08-03-2021 12:58-0500 Body mass index (BMI) [Ratio] 35.73 kg/m2 Janice Efrain [facility] 08-03-2021 12:58-0500 Body weight 109.77 kg Janice Efrain [facility] 08-03-2021 12:58-0500 Diastolic blood pressure 81 mm[Hg] Janice Efrain [facility] 08-03-2021 12:58-0500 Heart rate 57 /min Janice Efrain [facility] 08-03-2021 12:58-0500 Systolic blood pressure 126 mm[Hg] Janice Efrain [facility] 06-13-2021 11:49-0500 Body height 175.26 cm Ha DURAN Work Phone: Sly Nix D.P.M. Work Phone: Comment on above: 5'9 06-13-2021 11:49-0500 Body height 175.3 cm Ha DURAN Work Phone: Gisselle LemosP.M. Work Phone: 06-13-2021 11:49-0500 Body mass index (BMI) [Ratio] 35.9 kg/m2 Ha DURAN Work Phone: Gisselle LemosP.M. Work Phone: 06-13-2021 11:49-0500 Body temperature 98.1 [degF] Ha DURAN Work Phone: Gisselle LemosP.M. Work Phone: 06-13-2021 11:49-0500 Body weight 110.22 kg Ha DURAN Work Phone: Gisselle LemosP.M. Work Phone: 06-13-2021 11:49-0500 [place] Body Weight 145 [lb_av] Ha DURAN Work Phone: Gisselle LemosP.M. Work Phone: 05-11-2021 12:40-0400 Body height 175.26 cm Janice Efrain [facility] 05-11-2021 12:40-0400 Body mass index (BMI) [Ratio] 36.03 kg/m2 Janice Efrain [facility] 05-11-2021 12:40-0400 Body weight 110.68 kg Janice Efrain [facility] 05-11-2021 12:04-0400 Body height 175.26 cm [facility] 05-11-2021 12:04-0400 Body mass index (BMI) [Ratio] 36.03 kg/m2 Janice Zuniga [facility] 05-11-2021 12:04-0400 Body weight 110.68 kg Janice Zuniga [facility] [employer] [facility] 05-11-2021 12:04-0400 Diastolic blood pressure 68 mm[Hg] Janice Zuniga [facility] 05-11-2021 12:04-0400 Heart rate 63 /min Janice Zuniga [facility] [employer] 05-11-2021 12:04-0400 Systolic blood pressure 139 mm[Hg] Janice Zuniga [facility] 05-04-2021 16:37-0400 Body height 175.26 cm Ha [...] Phone: Gisselle LemosP.M. Work Phone: 05-04-2021 16:37-0400 [place] Body Weight 145 [lb_av] Ha DURAN Work [...] weight 109.89 kg Ha DURAN Work Phone: Gisselle LemosP.M. Work Phone: 03-30-2021 12:19-0400 [place] Body Weight 145 [lb_av] Ha DURAN Work Phone: Gisselle LemosP.M. Work Phone: 02-16-2021 23:20-0400 Body height 175.26 cm [facility] 02-16-2021 23:20-0400 Body mass index (BMI) [Ratio] 36.32 kg/m2 Janiceras [facility]ant [facility] 02-16-2021 23:20-0400 Body weight 111.59 kg Janiceras [facility] 02-15-2021 13:09-0400 Body height 175.26 cm Janiceras [facility] 02-15-2021 13:09-0400 Body mass index (BMI) [Ratio] 36.32 kg/m2 [facility]iceras [facility] 02-15-2021 13:09-0400 Body temperature 96.8 [degF] Janiceras [facility]iga [facility] 02-15-2021 13:09-0400 Body weight 111.59 kg Janiceras [facility]iga [facility] 02-15-2021 13:09-0400 Diastolic blood pressure 70 mm[Hg] Janiceras [facility]ant [facility] 02-15-2021 13:09-0400 Heart rate 72 /min Janiceras [facility]uniga [facility] 02-15-2021 13:09-0400 Systolic blood pressure 107 mm[Hg] [facility]ice [facility] 01-25-2021 11:17-0400 Body height 175.26 cm Ha DURAN Work Phone: Gisselle LemosP.M. Work Phone: Comment on above: 5'9 01-25-2021 11:17-0400 Body height 175.3 cm Ha DURAN Work Phone: Sly Boyd, D.P.M. Work Phone: 01-25-2021 11:17-0400 Body mass index (BMI) [Ratio] 37.4 kg/m2 Ha DURAN Work Phone: Gisselle LemosP.MMiguelina Work Phone: 01-25-2021 11:17-0400 Body temperature 98.2 [degF] Ha DURAN Work Phone: Gisselle LemosP.M. Work Phone: 01-25-2021 11:17-0400 Body weight 114.76 kg Ha DURAN Work Phone: Gisselle LemosP.M. Work Phone: 01-25-2021 11:17-0400 Diastolic blood pressure 76 mm[Hg] Ha DURAN Work Phone: Gisselle LemosP.M. Work Phone: 01-25-2021 11:17-0400 Heart rate 77 /min Ha DURAN Work Phone: Gisselle LemosP.M. Work Phone: 01-25-2021 11:17-0400 [place] Body Weight 145 [lb_av] Ha DURAN Work Phone: Gisselle LemosP.M. Work Phone: 01-25-2021 11:17-0400 SaO2% (BldA) [Mass fraction] 96 % Ha DURAN Work Phone: Gisselle LemosP.M. Work Phone: 01-25-2021 11:17-0400 Systolic blood pressure 138 mm[Hg] Ha DURAN Work Phone: Gisselle LemosP.MMiguelina Work Phone: 11-18-2020 11:20-0400 Body height 175.26 cm Janice Zuniga [facility] 11-18-2020 11:20-0400 Body mass index (BMI) [Ratio] 36.18 kg/m2 Janice Zuniga [facility] 11-18-2020 11:20-0400 Body temperature 97.6 [degF] Janice Zuniga [facility] 11-18-2020 11:20-0400 Body weight 111.13 kg Janice Zuniga [facility] 11-18-2020 11:20-0400 Diastolic blood pressure 72 mm[Hg] Janice Zuniga [facility] 11-18-2020 11:20-0400 Heart rate 74 /min Janice Zuniga [facility] 11-18-2020 11:20-0400 Respiratory rate 20 /min Janice Zuniga [facility] 11-18-2020 11:20-0400 Systolic blood pressure 124 mm[Hg] Janice Zuniga [facility] 10-07-2020 14:29-0400 BMI (Body Mass Index) 37.29 kg/m2 Milka [facility] 10-07-2020 14:29-0400 Body weight 114.53 kg Milka [facility] 10-07-2020 14:29-0400 BP Diastolic 73 mm[Hg] Milka [facility] 10-07-2020 14:29-0400 BP Systolic 126 mm[Hg] Milka Rodriguez [facility] 10-07-2020 14:29-0400 Height 175.3 cm Milka [facility] 10-07-2020 14:29-0400 Pulse (Heart Rate) 71 /min Milka [facility] 10-07-2020 14:29-0400 Pulse Oximetry 97 % Milka Rodriguez [facility] 04-05-2020 14:29-0400 BMI (Body Mass Index) 35.29 kg/m2 [facility] 04-05-2020 14:29-0400 Body weight 108.41 kg [facility] 04-05-2020 14:29-0400 BP Diastolic 63 mm[Hg] [facility] 04-05-2020 14:29-0400 BP Systolic 110 mm[Hg] [facility] 04-05-2020 14:29-0400 Height 175.3 cm [facility] 04-05-2020 14:29-0400 Pulse (Heart Rate) 60 /min [facility] 04-05-2020 14:29-0400 Pulse Oximetry 97 % [facility] 12-29-2019 10:51-0400 BMI (Body Mass Index) 34.7 kg/m2 [facility] 12-29-2019 10:51-0400 Body weight 106.59 kg [facility] 12-29-2019 10:51-0400 BP Diastolic 72 mm[Hg] [facility] 12-29-2019 10:51-0400 BP Systolic 121 mm[Hg] [facility] 12-29-2019 10:51-0400 Height 175.3 cm [facility] 12-29-2019 10:51-0400 Pulse (Heart Rate) 60 /min [facility] 12-29-2019 10:51-0400 Pulse Oximetry 96 % [facility] 12-15-2019 11:32-0400 BMI (Body Mass Index) 34.7 kg/m2 [facility] 12-15-2019 11:32-0400 Body weight 106.59 kg [facility] 12-15-2019 11:32-0400 BP Diastolic 56 mm[Hg] [facility] 12-15-2019 11:32-0400 BP Systolic 101 mm[Hg] [facility] 12-15-2019 11:32-0400 Height 175.3 cm [facility] 12-15-2019 11:32-0400 Pulse (Heart Rate) 74 /min [facility] 12-15-2019 11:32-0400 Pulse Oximetry 98 % [facility] 08-21-2019 10:31-0500 BMI (Body Mass Index) 33.52 kg/m2 Milka Rodriguez [facility] 08-21-2019 10:31-0500 Body weight 102.97 kg Milka Rodriguez [facility] 08-21-2019 10:31-0500 BP Diastolic 74 mm[Hg] Milka Rodriguez [facility] 08-21-2019 10:31-0500 BP Systolic 110 mm[Hg] Milka Rodriguez [facility] 08-21-2019 10:31-0500 Height 175.3 cm Milka Rodriguez [facility] 08-21-2019 10:31-0500 Pulse (Heart Rate) 67 /min Milka Rodriguez [facility] 08-21-2019 10:31-0500 Pulse Oximetry 95 % Milka Rodriguez [facility] 08-18-2019 08:27-0500 BMI (Body Mass Index) 33.79 kg/m2 Ha Rivas [facility] 08-18-2019 08:27-0500 Body weight 103.78 kg Ha [facility] 08-18-2019 08:27-0500 BP Diastolic 71 mm[Hg] [facility] 08-18-2019 08:27-0500 BP Systolic 128 mm[Hg] [facility] 08-18-2019 08:27-0500 Height 175.3 cm [facility] 08-18-2019 08:27-0500 Pulse (Heart Rate) 69 /min Ha [facility]ivas [facility] 08-18-2019 08:27-0500 Pulse Oximetry 97 % Ha Rivas [facility] 07-28-2019 13:41-0500 BMI (Body Mass Index) 33.43 kg/m2 [facility] 07-28-2019 13:41-0500 [facility] 07-28-2019 13:41-0500 BP Diastolic 60 mm[Hg] [facility] 07-28-2019 13:41-0500 BP Systolic 120 mm[Hg] [facility] 07-28-2019 13:41-0500 Height 175.3 cm [facility] 06-11-2017 11:05-0500 BMI (Body Mass Index) 29.35 kg/m2 Carmelita Fernandes LPN [facility] Work Phone: 06-11-2017 11:05-0500 Body Temperature 97.5 [degF] Carmelita Fernandes LPN [place] [facility] Work Phone: 06-11-2017 11:05-0500 BP Diastolic 81 mm[Hg] Carmelita Fernandes [facility]PN [facility] Work Phone: 06-11-2017 11:05-0500 BP Systolic 122 mm[Hg] Carmelita Fernandes LPN [place] [facility] Work Phone: 06-11-2017 11:05-0500 Height 175.26 cm Carmelita Fernandes LPN [place] [facility] Work Phone: 06-11-2017 11:05-0500 Pulse (Heart Rate) 78 /min Carmelita Fernandes [facility]PN [place] [facility] Work Phone: 06-11-2017 11:05-0500 Respiratory Rate 20 /min Carmelita Fernandes LPN [place] [facility] Work Phone: 06-11-2017 11:05-0500 Weight 90.18 kg Carmelita Fernandes LPN [place] [facility] Work Phone: 11-27-2016 09:43-0400 Body Temperature 97.5 [degF] Carmelita Fernandes LPN [place] [facility] Work Phone: 11-27-2016 09:43-0400 Height 175.26 cm Carmelita Fernandes [facility] Work Phone: 11-27-2016 09:43-0400 Weight 91.17 kg Carmelita Fernandes LPN [place] [facility] Work Phone: Encounters Encounter Date Encounter Type Care Provider Facility Start: 12-20-2024 Emergency department patient visit Hannah Nevarez Facility:[facility] Start: 12-15-2024 End: 12-15-[address] Lisseth Peñaloza MD Work Phone: [facility] Work Phone: Start: 12-15-2024 End: 12-15-2024 Dr. Michel Haq MD -Laboratory Specimen Work Phone: Start: 12-15-2024 End: 12-15-2024 ambulatory Lisseth Peñaloza Facility:[facility] Start: 12-10-2024 End: 12-10-2024 Sonia Quarles [employer] -[facility] Work Phone: Start: 12-10-2024 End: 12-10-[address] Lisseth Peñaloza MD Work Phone: [facility] Work Phone: Start: 12-09-2024 End: 12-09-2024 Jay KUMAR -[facility] [facility] Work Phone: Start: 12-09-2024 End: 12-09-[address] Lisseth Peñaloza MD Work Phone: [facility] Work Phone: Start: 12-08-2024 End: 12-08-[address] Lisseth Peñaloza MD Work Phone: [facility] Work Phone: Start: 12-08-2024 End: 12-08-2024 Dr. Michel Haq MD -Laboratory Specimen Work Phone: Start: 12-08-2024 End: 12-08-2024 ambulatory Lisseth Peñaloza Facility:[facility] Start: 12-01-2024 End: 12-01-2024 Dr. Michel Haq MD -Medical Out Work Phone: Start: 12-01-2024 End: 12-01-2024 ambulatory No Primary Care Physician [facility] Work Phone: Start: 12-01-2024 End: 12-01-[address] Lisseth Peñaloza MD Work Phone: [facility] Work Phone: Start: 12-01-2024 End: 12-01-2024 Dr. Michel Haq MD -Laboratory Specimen Work Phone: Start: 12-01-2024 End: 12-01-2024 ambulatory Lisseth Jh Facility:[facility] Start: 11-27-2024 End: 11-28-2024 No Primary Care Physician -Emergency Department Work Phone: Start: 11-27-2024 End: 11-28-2024 Emergency department patient visit No Primary Care Physician [facility] Work Phone: Start: 11-26-2024 Dr. Denisse Guan MD - [place] [facility] Work Phone: Start: 11-25-2024 ambulatory Lisseth Jh Facility :[facility] Start: 11-25-2024 Dr. Haider Smith DO [facility] Work Phone: Start: 11-24-2024 Dr. Haider Smith [facility] Work Phone: Start: 11-23-2024 ambulatory Lisseth Jh Facility :[facility] Start: 11-23-2024 Dr. Jean Trujillo MD -[facility] Start: 11-22-2024 Dr. Radha Dumont MD [facility] Start: 11-22-2024 Dr. Haider Smith DO [facility] Work Phone: Start: 11-21-2024 ambulatory Radha Dumont [facility] Start: 11-21-2024 Dr. Radha Dumont MD [facility] Start: 11-21-2024 Dr. Haider Smith DO [facility] Work Phone: Start: 11-20-2024 ambulatory Lisseth Jh Facility :[facility] Start: 11-20-2024 End: 11-26-2024 Evaluation and management of inpatient No Primary Care Physician [facility] Work Phone: Start: 11-20-2024 End: 11-26-2024 Dr. Denisse Guan MD -Progressive Care Unit Work Phone: Start: 11-20-2024 Evaluation and manag ement of inpatient Dr. Mariah Brewer MD -Intensive Care Unit Work Phone: Start: 11-20-2024 ambulatory Lisseth Jh Facility :[facility] Start: 11-09-2024 End: 11-09-2024 ambulatory Lisseth Jh Facility:[facility] Start: 11-09-2024 End: 11-09-[address] Jean Trujillo MD -[facility] [facility] Work Phone: Start: 11-09-2024 End: 11-09-2024 Dr. Jean Trujillo MD -[place] [facility] Work Phone: Start: 11-07-2024 End: 11-07-2024 Dr. Jeremiah Henley MD -Emergency Departmen t Work Phone: Start: 11-07-2024 End: 11-07-2024 Emergency department patient visit Dr. Jeremiah Henley MD -Emergency Department Work Phone: Start: 11-04-2024 End: 11-04-2024 Patient encounter procedure Shawanda [facility] Work Phone: Start: 11-04-2024 End: 11-04-2024 Shawanda [facility] Work Phone: Start: 11-04-2024 End: 11-04-2024 ambulatory Lisseth [place] Facility:[facility] Start: 10-19-2024 End: 10-19-[address] Lisseth Peñaloza MD -[facility] Work Phone: Start: 10-19-2024 End: 10-19-2024 Dr. Lisseth Peñaloza MD -[facility] Work Phone: Start: 10-19-2024 End: 10-19-2024 ambulatory Lisseth Jh Facility:[facility] Start: 10-15-2024 End: 10-15-2024 Patient encounter procedure Sonia Skyler [employer] -[facility] Work Phone: Start: 10-15-2024 End: 10-15-2024 Sonia Quarles [employer] -[facility] Work Phone: Start: 10-15-2024 End: 10-15-2024 ambulatory Lissethcarola Danielsy Facility:[facility] Start: 09-07-2024 End: 09-07-[address] Lisseth Peñaloza MD -[facility] Work Phone: Start: 09-07-2024 End: 09-07-2024 Dr. Lisseth Peñaloza MD -[facility] Work Phone: Start: 09-07-2024 End: 09-07-2024 ambulatory Lisseth Peñaloza Facility:[facility] Start: 08-26-2024 End: 08-26-[address] Lisseth Peñaloza MD -Laboratory, [facility] Start: 08-26-2024 End: 08-26-2024 Dr. Lisseth Peñaloza MD -Laboratory [facility] Start: 08-26-2024 End: 08-26-2024 ambulatory Lisseth Peñaloza Facility:[facility] Start: 08-05-2024 End: 08-05-[address] Lisseth Peñaloza MD -[facility] Work Phone: Start: 08-05-2024 End: 08-05-2024 Dr. Lisseth Peñaloza MD -[facility] Work Phone: Start: 08-05-2024 End: 08-05-2024 ambulatory Lisseth [place] Facility:[facility] Start: 05-29-2024 End: 05-29-2024 ambulatory No Primary Care Physician Facility:[facility] Start: 05-26-2024 ambulatory Sprakers Ronnie [facility] Start: 05-26-2024 End: 05-26-2024 ambulatory Sprakers Ronnie Facility:[facility] Start: 05-20-2024 ambulatory No Primary Car e Physician Facility:[facility] Start: 05-08-2024 End: 05-08-2024 ambulatory Jeanie Murphy RN Work Phone: [employer] Start: 05-08-2024 End: 05-08-2024 Home visit Jeanie Murphy RN Work Phone: [employer] Comment on above: Primary Care Coordin ator- Other (Discharged new PCP) Start: 05-06-2024 End: 05-06-2024 ambulatory Jean Ronnie Facility:[facility] Start: 04-10-2024 End: 04-10-2024 Telephone encounter Homar Vasques MD Work Phone: [facility] Comment on above: Patient Update (No l onger a patient) Start: 04-07-2024 End: 04-08-2024 Refill Williams Rubin MD Work Phone: [facility] Comment on above: Refill Request Start: 04-03-2024 End: 04-03-2024 ambulatory Jeanie Murphy RN Work Phone: [employer] Start: 04-03-2024 End: 04-03-2024 Home visit Jeanie Murphy RN Work Phone: [employer] Comment on above: Primary Care Coordin ator Chronic Care (Attempted PCC follow up) Start: 04-03-2024 End: 04-03-2024 Telephone encounter Williams Rubin MD Work Phone: [facility] Comment on above: No Show Start: 03-19-2024 End: 03-19-2024 ambulatory Jeanie Murphy RN Work Phone: [employer] Start: 03-19-2024 End: 03-19-2024 Home visit Jeanie Murphy RN Work Phone: [employer] Comment on above: Primary Care Coordin ator Chronic Care (Attempted PCC follow up) Primary Care Coordin ator Chronic Care (PCC follow up) Start: 03-09-2024 End: 03-10-2024 Refill Williams Rubin MD Work Phone: [facility] Comment on above: Refill Request Start: 03-05-2024 End: 03-07-2024 Refill Manny Shields MD Work Phone: [facility] Comment on above: Refill Request Start: 03-03-2024 End: 03-03-2024 ambulatory Jeanie Murphy RN Work Phone: [employer] Start: 03-03-2024 End: 03-03-2024 Home visit Jeanie Murphy RN Work Phone: [employer] Comment on above: Primary Care Coordin ator Chronic Care (Attempted to contact patient with PCP medication instruction) Start: 02-26-2024 End: 02-26-2024 ambulatory Jeanie Murphy RN [employer] Start: 02-26-2024 Home visit Jeanie Murphy RN [facility] Comment on above: Transition Of Care ( ER follow up, [place], 02/24/2024) Start: 02-26-2024 End: 02-26-2024 Patient encounter procedure [facility] Comment on above: Type 2 diabetes glenda itus with diabetic neuropathy, with long- term current use of insulin (HCC) (Primary Dx); Uses self-applied continuous glucose monitoring device; Diabetes education, encounter for; Encounter for medication counseling; Preventative health care; Complex care coordination Start: 02-26-2024 End: 02-26-2024 Patient encounter status [facility] Start: 02-24-2024 Emergency department patient visit HOMAR VASQUES Facility:[facility] Start: 02-24-2024 Telephone encounter Williams apple MD Work Phone: [facility] Comment on above: Opened In Error Start: 02-20-2024 Telephone encounter Williams apple MD Work Phone: [facility] Comment on above: Patient Question Start: 02-13-2024 ambulatory Jeanie Murphy RN [facility] Start: 02-13-2024 Home visit Jeanie Murphy RN [facility] Comment on above: Primary Care Coordin ator Chronic Care (PCC follow up) Start: 02-12-2024 Telephone encounter Williams apple MD Work Phone: [facility] Comment on above: Rx Refills Refill Request Start: 02-11-2024 Refill Manny Shields MD Work Phone: [facility] Comment on above: Refill Request Start: 01-29-2024 End: 01-29-2024 ambulatory JAMIE AGGARWAL Facility:[facility] Start: 01-29-2024 End: 01-29-2024 ambulatory HOMAR VASQUES Facility:[facility] Start: 01-29-2024 End: 01-29-2024 Patient encounter procedure [facility] Comment on above: Type 2 diabetes [...] 01-29-2024 [facility] Start: 01-11-2024 End: 01-12-2024 Emergency department patient visit Jose R [facility] Facility:[facility] Start: 01-07-2024 ambulatory Jeanie Murphy RN [facility] Start: 01-07-2024 Home visit Jeanie Murphy RN [facility] Comment on above: Primary Care Coordin ator Chronic Care (Pcc follow up) Start: 12-30-2023 ambulatory Jeanie Murphy RN [facility] Start: 12-30-2023 Home visit Jeanie Murphy RN [facility] Comment on above: Primary Care Coordin ator Chronic Care (PCC follow up, patient updated on Victoza change) Start: 12-27-2023 ambulatory Jeanie Murphy RN [facility] Start: 12-27-2023 Home visit Jeanie Murphy RN [facility] Comment on above: Primary Care Coordin ator Chronic Care (Attempted outreach) Start: 12-26-2023 ambulatory Jeanie Murphy RN [facility] Start: 12-26-2023 Home visit Jeanie Murphy RN [facility] Comment on above: Primary Care Coordin ator Chronic Care (PCC follow up) Start: 12-24-2023 End: 12-24-2023 Patient encounter procedure Manny Shields MD Work Phone: [facility] Comment on above: Type 2 diabetes glenda itus with diabetic neuropathy, with long- term current use of insulin (HCC) (Primary Dx); Dyspepsia; Nausea Start: 12-24-2023 End: 12-24-2023 ambulatory MANNY SHIELDS Facility:[facility] Start: 12-06-2023 ambulatory Jeanie Murphy RN [facility] Start: 12-06-2023 Home visit Jeanie Murphy RN [facility] Comment on above: Primary Care Coordin ator Chronic Care (Attempted PCC follow up) Start: 12-05-2023 Telephone encounter Sonia Whitt darius [facility] Work Phone: [facility] Comment on above: No Show Appointment Start: 11-29-2023 ambulatory Jeanie Murphy RN [facility] Start: 11-29-2023 Home visit Jeanie Murphy RN [facility] Comment on above: Primary Care Coordin ator Chronic Care (PCC follow up) Start: 11-27-2023 Telephone encounter Williams apple MD Work Phone: [facility] Comment on above: Forms (Specialty med ical- glucose monitor) Start: 11-15-2023 Telephone encounter Veronica Steiner [facility] Comment on above: Colonoscopy Referral Refill Request Start: 11-14-2023 End: 11-14-2023 Patient encounter procedure [facility] Comment on above: Uses self-applied co ntinuous glucose monitoring device (Primary Dx); Type 2 diabetes mellitus with diabetic neuropathy, with long-term current use of insulin (HCC); Preventative health care; Diabetes education, encounter for Start: 11-14-2023 End: 11-14-2023 Patient encounter status Pharm D [facility] josh Start: 11-14-2023 End: 11-14-2023 ambulatory HOMAR VASQUES Facility:[facility] Start: 11-08-2023 ambulatory Jeanie Murphy RN [facility] Start: 11-08-2023 Home visit Jeanie Murphy RN [facility] Comment on above: Primary Care Coordin ator Chronic Care (PCC follow up) Start: 11-05-2023 Telephone encounter Williams apple MD Work Phone: [facility] Comment on above: Forms (Specialty- gl ucose monitor) Start: 10-31-2023 Telephone encounter Homar Vasques MD Work Phone: [facility] Comment on above: Initial Consult Start: 10-30-2023 End: 10-30-2023 ambulatory HOMAR VASQUES Facility:[facility] Start: 10-30-2023 Encounter for genera l adult medical examination without abnormal findings HOMARTONYA VASQUES [facility] Start: 10-30-2023 End: 10-30-2023 Patient encounter procedure Pharm D [facility] Comment on above: Type 2 diabetes glenda itus with diabetic neuropathy, with long- term current use of insulin (HCC) (Primary Dx); Uses self-applied continuous glucose monitoring device; Preventative health care; Diabetes education, encounter for; Screening for colon cancer Start: 10-30-2023 End: 10-30-2023 Patient encounter status Pharm D Clinic [facility] josh Work Phone: Start: 10-22-2023 End: 10-22-2023 ambulatory HOMAR VASQUES Facility:[facility] Start: 10-22-2023 End: 10-22-2023 Follow-up encounter Ronny Wheeler MD Work Phone: [facility] Comment on above: Remote Pacemaker Fol low Up Start: 10-22-2023 ICD Remote F/U Ronny Wheeler MD Work Phone: [facility] Start: 10-22-2023 End: 10-22-2023 Patient encounter procedure Rem Device Ck [facility] Comment on above: Refill Request Start: 10-06-2023 End: 10-06-2023 Emergency department patient visit [facility] Work Phone: Start: 09-24-2023 Refill Manny Shields MD Work Phone: [facility] Comment on above: Refill Request Start: 09-20-2023 ambulatory Jeanie Murphy RN AG VNS Start: 09-20-2023 Follow-up encounter 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 Comment on above: Primary Care Coordin ator Chronic Care (PCC follow up) Start: 09-19-2023 Telephone encounter Williams apple MD Work Phone: [facility] Comment on above: Medication Authoriza tion (Victoza ) Medication Authoriza tion (Freestyle Lance 2 sensor) Start: 09-12-2023 End: 09-12-2023 Patient encounter procedure Pharm D Clinic [facility] Comment on above: Type 2 diabetes glenda itus with diabetic neuropathy, with long- term current use of insulin (HCC) (Primary Dx); Preventative health care; Food insecurity; Diabetes education, encounter for Start: 09-12-2023 End: 09-12-2023 [facility] Work Phone: Start: 09-12-2023 End: 09-12-2023 ambulatory HOMAR VASQUES Facility:[facility] Start: 09-06-2023 End: 09-06-2023 ambulatory Jeanie Murphy RN AG VNS Start: 09-06-2023 Follow-up encounter 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 Tractor Mechanic Comment on above: Primary Care Coordin ator Chronic Care (Attempted PCC follow up) Start: 09-04-2023 Refill Manny Shields MD Work Phone: [facility] Comment on above: Refill Request Start: 08-30-2023 End: 08-30-2023 Patient encounter procedure Williams Rubin MD Work Phone: [facility] Comment on above: Type 2 diabetes glenda itus with diabetic neuropathy, with long- term current use of insulin (HCC) (Primary Dx); Anxiety with depression; Chronic constipation; Intertrigo; Type 2 diabetes mellitus with complication, without long-term current use of insulin (HCC) Start: 08-30-2023 End: 08-30-2023 ambulatory WILLIAMS RUBIN Facility:[facility] Start: 08-22-2023 Refill Abbey Montanez Akhil chavez CNP Work Phone: [facility] Comment on above: Medication Refill Start: 07-18-2023 End: 07-18-2023 ambulatory HOMAR VASQUES Facility:[facility] Start: 06-27-2023 ambulatory Jeanie Murphy RN AG VNS Start: 06-27-2023 Follow-up encounter Jeanie Maxwell G Tractor Mechanic Comment on above: Primary Care Coordin ator Chronic Care (Attempted PCC follow up) Start: 06-26-2023 Telephone encounter Williams apple MD Work Phone: [facility] Comment on above: Patient Question Start: 06-20-2023 Telephone encounter Williams apple MD Work Phone: [facility] Comment on above: Medication Authoriza tion (Basaglar kwikpen 100unit/ml) Start: 06-18-2023 ambulatory Jeanie Murphy RN AG VNS Start: 06-18-2023 Follow-up encounter Jeanie Maxwell G Tractor Mechanic Comment on above: Primary Care Coordin ator Chronic Care (PCC follow up) Start: 06-18-2023 Telephone encounter Homar Vasques MD Work Phone: [facility] Start: 06-17-2023 Telephone encounter Williams apple MD Work Phone: [facility] Comment on above: Results Start: 06-14-2023 Telephone encounter Williams apple MD Work Phone: [facility] Comment on above: Patient Update Start: 05-20-2023 End: 05-20-2023 ambulatory WILLIAMS RUBIN Facility:[facility] Start: 05-06-2023 Telephone encounter Williams apple MD Work Phone: [facility] Comment on above: No Show Start: 05-01-2023 Telephone encounter Sonia mccoy [facility] Work Phone: [facility] Comment on above: No Show (Diabetes fo llow up) Start: 04-19-2023 ambulatory Jeanie Murphy RN AG VNS Start: 04-19-2023 Follow-up encounter Jeanie Murphy RN A G Tractor Mechanic Comment on above: Primary Care Coordin ator Chronic Care (Attempted PCC follow up) Start: 04-15-2023 Telephone encounter Williams apple MD Work Phone: [facility] Comment on above: Medication Problem Start: 04-09-2023 Refill Jay Her DO Work Phone: [facility] Comment on above: Refill Request Start: 04-05-2023 ambulatory Jeanie Murphy RN AG [facility] Comment on above: Primary Care Coordin ator Chronic Care (Intake) Start: 04-03-2023 End: 04-03-2023 ambulatory Device 1 [facility] Comment on above: ICD Start: 04-03-2023 Follow-up encounter Ronny Wheeler MD Work Phone: [facility] Start: 04-03-2023 End: 04-03-2023 Patient encounter procedure Ronny Wheeler MD Work Phone: [facility] Start: 04-03-2023 Telephone encounter Williams apple MD Work Phone: [facility] Comment on above: Medication Authoriza tion (Ozempic 2 mg/ 3 mL pen) Start: 03-29-2023 End: 03-29-2023 Patient encounter procedure Jay Her DO Work Phone: [facility] Comment on above: Type 2 diabetes glenda itus with diabetic neuropathy, with long- term current use of insulin (HCC) (Primary Dx); Depression, unspecified depression type Start: 03-26-2023 Refill Williams Rubin MD Work Phone: [facility] Comment on above: Refill Request Start: 03-25-2023 ambulatory Williams Rubin MD Work Phone: [facility] Start: 03-15-2023 End: 03-15-2023 Patient encounter procedure Manny Shields MD Work Phone: [facility] Comment on above: Type 2 diabetes glenda itus with diabetic neuropathy, with long- term current use of insulin (HCC) (Primary Dx); Encounter for immunization; Medication management Start: 03-15-2023 Refill Jay Her DO Work Phone: [facility] Comment on above: Refill Request Start: 03-12-2023 Refill Williams Rubin MD Work Phone: [facility] Comment on above: Refill Request Start: 03-04-2023 Refill Williams Rubin MD Work Phone: [facility] Comment on above: Refill Request (One Touch Ultra Test Strips ) Start: 03-01-2023 End: 03-01-2023 Patient encounter procedure Williams Rubin MD Work Phone: [facility] Comment on above: Type 2 diabetes glenda itus with diabetic neuropathy, with long- term current use of insulin (HCC) (Primary Dx); Essential hypertension, benign; Coronary artery disease involving [place] heart without angina pectoris, unspecified vessel or lesion type; Restless leg syndrome Start: 02-11-2023 Telephone encounter Williams apple MD Work Phone: [facility] Comment on above: Opened In Error Start: 01-29-2023 End: 01-29-2023 Patient encounter procedure Ronny Wheeler MD Work Phone: [facility] Cardiology Stefano Comment on above: NICM (nonischemic ca rdiomyopathy) ([facility]) (Primary Dx); Cardiac resynchronization therapy defibrillator (TENTER FEEDER-D) in place; Primary hypertension Start: 01-25-2023 End: 01-25-2023 ambulatory HOMAR VASQUES Facility:[facility] Start: 01-24-2023 Telephone encounter Jay Johnson paoloverna DO Work Phone: [facility] Comment on above: REFERRAL (To [facility]) Start: 01-22-2023 End: 01-22-2023 Patient encounter procedure Jay Her DO Work Phone: [facility] Comment on above: Encounter to [facility] with new doctor (Primary Dx); Type 2 [...] Telephone encounter Ronny Wheeler MD Work Phone: [facility] Cardiology Stefano Comment on above: Appointment Start: 10-15-2022 ambulatory ABBEY OLIVEIRA [facility] Start: 10-15-2022 Refill Abbey Landaverde an SPEECH LANGUAGE SPECIALIST Work Phone: [facility] Comment on above: Medication Refill Start: 10-12-2022 Orders Only Abbey Landaverde an SPEECH LANGUAGE SPECIALIST Work Phone: [facility] Start: 10-10-2022 Refill Abbey Landaverde an SPEECH LANGUAGE SPECIALIST Work Phone: [facility] Comment on above: Medication Refill Start: 10-09-2022 Refill Abbey Landaverde an SPEECH LANGUAGE SPECIALIST Work Phone: [facility] Comment on above: Medication Refill Start: 10-04-2022 Refill Abbey Landaverde an SPEECH LANGUAGE SPECIALIST Work Phone: [facility] Comment on above: Medication Refill Start: 09-19-2022 ambulatory CAM QUARLES [facility] Start: 09-19-2022 Encounter for gynecological examination (general) (routine) without abnormal findings CAM QUARLES [facility] Start: 09-18-2022 ambulatory Lisa Aj MD Facil ity:[facility] Start: 06-13-2022 ambulatory HA RIVAS [facility] Start: 05-05-2022 End: 05-07-2022 ambulatory PHYSICIAN NO [facility] Start: 05-02-2022 End: 05-02-2022 ambulatory Sly Nix DPM Facility:[facility] Start: 05-02-2022 End: 05-02-2022 Discharged Recurring WICKER M[employer]ED CANDLES Ha Rivas Work Phone: [facility]Woundcare [facility] Start: 05-01-2022 End: 05-01-2022 ambulatory PHYSICIAN NO [facility] Start: 04-30-2022 End: 04-30-2022 Emergency department patient visit Ha Rivas Facility:[facility] Start: 04-30-2022 End: 04-30-2022 Emergency department patient visit W[employer]ER [employer] CANDLES Ha Rivas Work Phone: [facility]Emergency Department Start: 04-25-2022 Registered Recurring [employer] Ha Rivas Work Phone: [facility] Start: 04-23-2022 ambulatory [facility] Start: 04-20-2022 End: 04-21-2022 ambulatory MILKA RODRIGUEZ [facility] Start: 04-20-2022 End: 04-20-2022 Subsequent hospital visit by physician JAN KOVACS Start: 04-09-2022 End: 04-09-2022 ambulatory PHYSICIAN NO [facility] Start: 04-09-2022 End: 04-09-2022 Office outpatient visit 25 minutes Milka Rodriguez MD Work Phone: [facility] Comment on above: Nonischemic cardiomy opathy (HCC) (Primary Dx); Benign essential HTN; HFrEF (heart failure with reduced ejection fraction) (HCC); Heart failure with preserved ejection fraction, unspecified HF chronicity (HCC) Start: 04-03-2022 Office outpatient vi sit 15 minutes SLY NIX DPM Work Phone: Sly Nix D.P.M. Work Phone: Start: 03-22-2022 End: 03-22-2022 ambulatory Ha Rivas Facility:[facility] Start: 03-22-2022 End: 03-22-2022 Patient encounter procedure W[employer]ER M[employer] CANDLES Ha Evelyn Work Phone: [facility]-Ultrasound Start: 03-08-2022 ambulatory HA EVELYN [facility] Start: 03-07-2022 End: 03-07-2022 ambulatory Ha Rivas Facility:[facility] Start: 03-07-2022 End: 03-07-2022 Patient encounter procedure W[employer] Ha Evelyn Work Phone: [facility] MED-Reference Lab Start: 03-07-2022 End: 03-07-2022 ambulatory HA RIVAS [facility] Start: 03-01-2022 End: 03-02-2022 ambulatory DAVE PHAN [facility] Start: 03-01-2022 End: 03-01-2022 Subsequent hospital visit by physician Dave Phan MD Work Phone: [facility] Comment on above: Subclinical hyperthy roidism Start: 02-15-2022 Office outpatient vi sit 25 minutes Janice Zuniga [facility] Start: 02-06-2022 End: 02-06-2022 ambulatory Ha Rivas Facility:[facility] Start: 02-06-2022 End: 02-06-2022 Patient encounter procedure W[employer]ANDLES Ha Evelyn Work Phone: [facility]-Reference Lab Start: 02-06-2022 End: 02-06-2022 ambulatory HA RIVAS [facility] Start: 01-30-2022 End: 01-30-2022 ambulatory PHYSICIAN [facility] Start: 01-25-2022 Office outpatient vi sit 25 minutes MATEO KUMAR Work Phone: Vlad Alaniz MD, [facility] Work Phone: Start: 01-23-2022 End: 01-23-2022 ambulatory [facility] Start: 01-11-2022 Office outpatient vi sit 15 minutes SLY NIX DPM Work Phone: Gisselle LemosP.Shanell. Work Phone: Start: 12-12-2021 Office outpatient vi sit 25 minutes SLY NIX DPM Work Phone: Gisselle LemosP.Shanell. Work Phone: Start: 12-06-2021 Office outpatient vi sit 15 minutes Janiceras Zuniga [facility] Start: 11-24-2021 ambulatory PHYSICIAN LINH [facility] Start: 11-21-2021 End: 11-21-2021 ambulatory Vlad Alaniz MD Facility:[facility] Start: 11-13-2021 Office outpatient vi sit 25 minutes SLY NIX DPM Work Phone: Gisselle LemosP.M. Work Phone: Start: 10-24-2021 End: 10-24-2021 ambulatory [facility] Start: 10-24-2021 End: 10-24-2021 ambulatory PHYSICIAN LINH [facility] Start: 10-13-2021 Orders Only Juany Harden RN [facility] Comment on above: Nonischemic cardiomy opathy (HCC) (Primary Dx) Start: 10-13-2021 End: 10-13-2021 Office outpatient visit 15 minutes Abbey Oliveira CNP Work Phone: [facility] Comment on above: Nonischemic cardiomy opathy (HCC); Dyslipidemia; Benign essential HTN Start: 10-10-2021 End: 10-11-2021 ambulatory DAVE PHAN [facility] Start: 10-10-2021 End: 10-10-2021 Subsequent hospital visit by physician Dave Phan MD Work Phone: [facility] Comment on above: Subclinical hyperthy roidism Start: 10-09-2021 Postop follow up vis it related to original px SLY Hernandez BOYD DPM Work Phone: Gisselle LemosP.M. Work Phone: Start: 10-05-2021 ambulatory Dave Phan [facility] ty:[facility] Start: 10-03-2021 Office outpatient vi sit 25 minutes Vlad Alaniz MD Work Phone: Vlad Alaniz MD, [facility] Work Phone: Start: 09-28-2021 End: 09-28-2021 ambulatory DAVE PHAN [facility] Start: 09-18-2021 Postop follow up vis it related to original px SLY Hernandez BOYD DPM Work Phone: Gisselle LemosP.M. Work Phone: Start: 09-05-2021 Postop follow up vis it related to original px SLY David BOYD DPM Work Phone: Gisselle LemosP.M. Work Phone: Start: 08-30-2021 End: 09-06-2021 Patient encounter procedure Dave Phan MD Work Phone: [facility] Start: 08-25-2021 Postop follow up vis it related to original px SLY David BOYD DPM Work Phone: Gisselle LemosP.M. Work Phone: Start: 08-03-2021 Office outpatient vi sit 25 minutes Janice Zuniga [facility] Start: 07-27-2021 Office outpatient vi sit 25 minutes SLY NIX DPM Work Phone: Carrie Lemos.P.M. Work Phone: Start: 07-18-2021 End: 07-18-2021 ambulatory NICK [place] Start: 07-03-2021 Postop follow up vis it related to original px SLY Hernandez BOYD DPM Work Phone: Gisselle LemosPEsteban Work Phone: Start: 06-20-2021 Postop follow up vis it related to original px SLY Hernandez BOYD DPM Work Phone: Gisselle LemosPEsteban Work Phone: Start: 06-13-2021 Postop follow up vis it related to original px SLY Hernandez BOYD DPM Work Phone: Gisselle LemosPEsteban Work Phone: Start: 05-11-2021 Office outpatient vi sit 25 minutes Janiceras Zuniga [facility] Start: 05-04-2021 Office outpatient vi sit 25 minutes SLY NIX DPM Work Phone: Gisselle LemosPEsteban Work Phone: Start: 03-30-2021 Office outpatient vi sit 15 minutes SLY NIX DPM Work Phone: Gisselle LemosP.MMiguelina Work Phone: Start: 03-14-2021 Refill Abbey chavez CNP Work Phone: [facility] Comment on above: Medication Refill Start: 02-15-2021 Office outpatient vi sit 25 minutes Janiceras Zuniga [facility] Start: 01-25-2021 Office outpatient vi sit 15 minutes MATEO KUMAR Work Phone: Vlad Alaniz MD, [facility] Work Phone: Start: 01-12-2021 Office outpatient vi sit 15 minutes SLY NIX DPM Work Phone: Gisselle LemosPGarry. Work Phone: Start: 12-19-2020 End: 12-19-2020 Refill Abbey Oliveira SPEECH LANGUAGE SPECIALIST Work Phone: [facility] Comment on above: Medication Refill Start: 12-14-2020 Office outpatient vi sit 25 minutes THOMAS SILVA MD Work Phone: [facility] Work Phone: Start: 11-21-2020 End: 11-21-2020 Refill Abbey Oliveira CNP Work Phone: [facility] Comment on above: Medication Refill Start: 11-17-2020 Office outpatient vi sit 10 minutes THOMAS SILVA MD Work Phone: [facility] Work Phone: Start: 11-17-2020 Office outpatient vi sit 15 minutes SLY NIX DPM Work Phone: Gisselle LemosPMiguelinaM. Work Phone: Start: 11-01-2020 Office outpatient vi sit 15 minutes SLY NIX DPM Work Phone: Gisselle LemosP.M. Work Phone: Start: 10-27-2020 Office outpatient vi sit 15 minutes THOMAS SILVA MD Work Phone: [facility] Work Phone: Start: 10-25-2020 End: 10-25-2020 Refill Abbey Oliveira Work Phone: [facility] Comment on above: Medication Refill Start: 10-13-2020 Office outpatient vi sit 15 minutes SLY KEARNEYM Work Phone: Gisselle LemosP.M. Work Phone: Start: 10-07-2020 End: 10-07-2020 Office outpatient visit 25 minutes Milka Rodriguez Work Phone: [facility] Comment on above: ICD (implantable car dioverter-defibrillator) in place (Primary Dx); Nonischemic cardiomyopathy (HCC); Dyslipidemia; Preoperative cardiovascular examination Start: 09-21-2020 End: 09-21-2020 Orders Only Barbara Mendezmariusz Work Phone: [facility] Start: 07-29-2020 End: 07-29-2020 Orders Only Abbey Oliveira Work Phone: [facility] Comment on above: Benign essential HTN (Primary Dx) Medication Refill Start: 06-07-2020 End: 06-07-2020 Subsequent hospital visit by physician Nick Branch Work Phone: [facility] Comment on above: Arrived Start: 04-05-2020 End: 04-05-2020 Office outpatient visit 15 minutes Abbey Oliveira Work Phone: [facility] Comment on above: Nonischemic cardiomy opathy (HCC) Start: 03-01-2020 End: 03-01-2020 Subsequent hospital visit by physician Nick Branch Work Phone: [facility] Comment on above: Arrived Start: 12-29-2019 End: 12-29-2019 Documentation procedure Marlene D Cecil [facility] Start: 12-29-2019 End: 12-29-2019 Office outpatient visit 10 minutes Abbey Oliveira Work Phone: [facility] Comment on above: PAXTON (obstructive sle ep apnea) (Primary Dx); Nonischemic cardiomyopathy (HCC) Start: 12-15-2019 End: 12-15-2019 Office outpatient visit 15 minutes Abbey Oliveira Work Phone: [facility] Comment on above: MCKNIGHT (dyspnea on exer tion) (Primary Dx); Nonischemic cardiomyopathy (HCC) Start: 09-01-2019 End: 09-01-2019 Orders Only Unspecified Provider [facility] Start: 09-01-2019 End: 09-01-2019 Telephone encounter Ha Rivas Work Phone: [facility] Comment on above: Other Start: 08-26-2019 End: 08-26-2019 Telephone encounter Ha Rivas Work Phone: [facility] Comment on above: Other Start: 08-21-2019 End: 08-21-2019 Documentation procedure Nilam Garrett [facility] Start: 08-21-2019 End: 08-21-2019 Office outpatient new 45 minutes David Silva Work Phone: [facility] Comment on above: Benign essential HTN ; Dyslipidemia; Pre-operative cardiovascular examination; Pacemaker; Nonischemic cardiomyopathy (HCC); ICD (implantable cardioverter-defibrillator) in place; Gastroesophageal reflux disease without esophagitis; Depression, unspecified depression type; Establishing care with new doctor, encounter for; MCKNIGHT (dyspnea on exertion) Start: 08-18-2019 End: 08-18-2019 Orders Only Unspecified Provider [facility] Start: 08-18-2019 End: 08-18-2019 Office outpatient visit 15 minutes Ha Rivas Work Phone: [facility] Comment on above: Pre-operative cleara nce (Primary Dx); Other eczema Start: 08-13-2019 End: 08-13-2019 Letter encounter Kim Perera [facility] Start: 08-11-2019 End: 08-11-2019 Refill Ha Rivas Work Phone: [facility] Comment on above: Type 2 diabetes glenda itus without complication, without long- term current use of insulin (HCC) Start: 08-11-2019 End: 08-11-2019 Telephone encounter Ha Rivas Work Phone: [facility] Comment on above: Surgical Clearance Start: 08-03-2019 End: 08-03-2019 Refill Ha Rivas Work Phone: [facility] Comment on above: Type 2 diabetes glenda itus without complication, without long- term current use of insulin (HCC) Start: 08-03-2019 End: 08-03-2019 Refill Ha Rivas Work Phone: [facility] Comment on above: Type 2 diabetes glenda itus without complication, with long-term current use of insulin (HCC) (Primary Dx); Type 2 diabetes mellitus without complication, without long-term current use of insulin (HCC) Start: 07-31-2019 End: 07-31-2019 Refill Keshia Sterling Work Phone: [facility] Comment on above: Trichomonal vaginiti s (Primary Dx) Start: 07-28-2019 End: 07-28-2019 Periodic preventive med est patient 40-64yrs Keshia Sterling Work Phone: [facility] Comment on above: Well woman exam with routine gynecological exam (Primary Dx); BMI 33.0-33.9,adult; Screen for STD (sexually transmitted disease); Stress incontinence Start: 05-30-2018 End: 05-30-2018 Patient encounter procedure [facility] Start: 03-29-2017 End: 03-29-2017 [facility] Services Procedures Date Procedure Procedure Detail Performing [...] Start: 11-20-2024 Plain chest X-ray No Pr ary Care Physician Start: 11-20-2024 Calculation of international [...] Start: 12-24-2023 Hemoglobin A1c/Hemoglobin.total in Blood Manny Shields MD Work Phone: Start: 10-22-2023 ICD REMOTE [...] 05-04-2022 Ther behav svc, per 15 min Janice Zuniga Start: 05-01-2022 Ther behav svc, per 15 min Janice Zuniga Start: 05-01-2022 Follow-up visit Follow-up ALFREDO OLIVEIRA Start: 04-27-2022 Ther behav svc, per 15 min Janice Efrain Start: 04-25-2022 Ther behav svc, per 15 min Janice Efrain Start: 04-20-2022 Basic metabolic pane l calcium total MILKA RODRIGUEZ Start: 04-20-2022 BRAIN NATRIURETIC PEPTIDE MILKA RODRIGUEZ Start: 04-20-2022 Basic metabolic pane l calcium total Unknown Provider Result Start: 04-09-2022 Ther behav svc, per 15 min Janice Efrain Start: 04-03-2022 Debridement nail any method 6/> [...] Janice Efrain Start: 03-22-2022 Ultrasonography of liver [employer] Ha Evelyn Work Phone: Start: 03-21-2022 Ther [...] Ther behav svc, per 15 min Janice Efarin Start: 10-13-2021 Ecg routine ecg w/le ast 12 lds w/i&r Abbey Oliveira SPEECH LANGUAGE SPECIALIST Work Phone: Start: 10-10-2021 Ther behav svc, [...] svc, per 15 min Janice Efrain Start: 08-21-2021 Ostectomy calcaneus ASA EPH F BOYD DPM Work Phone: Start: 08-21-2021 Repair secondary [...] Janice Efrain Start: 12-19-2020 Antibody screen Ha Rivas SUPERCHARGER MECHANIC Work Phone: Start: 12-15-2020 Ther behav svc, [...] Paring/cutting benig n hyperkeratotic lesion 1 SLY KEARNEYM Work Phone: Start: 11-17-2020 Ther behav svc, [...] svc, per 15 min Janice Efrain Start: 10-26-2020 Ther behav svc, per 15 min Janice Efrain Start: 10-25-2020 Ther behav svc, per 15 min Janice Efrain Start: 10-20-2020 Ther behav svc, per 15 min Janice Efrain Start: 10-13-2020 Debridement nail any method 6/> SLY Hernandez BOYD DPM Work Phone: Start: 10-13-2020 Ther behav svc, per 15 min Janice Efrain Start: 10-07-2020 12 lead ECG Milka Rodriguez [...] 08-18-2019 Adult depression scr eening assessment Ha Rivas Start: 07-28-2019 Adult depression scr eening assessment [...] 09-04-2016 *Microalbumin, Creatine Ratio, rand urine Lissette Kendra Banerjee NP Work Phone: Start: 09-04-2016 End: 09-07-2016 1,25-Dihydroxyvitamin D [Mass/volume] in Serum or Plasma Lissette Kendra Banerjee NP Work Phone: Start: 09-04-2016 End: [...] in person multi lead dfb Shawanda Keane PANavaC Work Phone: Start: 10-28-2014 End: 10-28-2014 Prgrmg eval implantable in person multi lead dfb Jaen Trujillo MD Start: 07-28-2014 End: 07-28-2014 Prgrmg eval implantable in prsn dual lead dfb Jean Trujillo MD Start: 04-26-2014 End: 04-26-2014 Prgrmg eval implantable in person multi lead dfb Evan Roberts MD Start: 03-16-2014 End: 03-16-2014 INSURANCE ACCOUNT MANAGER Shawanda Keane PA-C Work Phone: Start: 03-16-2014 End: 03-16-2014 Ecg [...] months Shanell Mooney Start: 11-26-2013 End: 11-26-2013 CANDELARIA Trujillo MD Start: 10-21-2013 End: 02-26-2014 Follow [...] Jean Trujillo MD Start: 09-10-2013 End: 02-26-2014 Pacer Clinic Jean Trujillo MD Start: 08-21-2013 End: 08-21-2013 INSURANCE ACCOUNT MANAGER Jean Trujillo MD Start: 08-21-2013 End: 08-21-2013 Follow Up Appt 3 months Shanell Mooney Start: 06-18-2013 End: 06-18-2013 JUAN Keane PA-C Work Phone: Start: 06-18-2013 End: 02-26-2014 Echocardiography Shawanda Keane PA-C Work Phone: Start: 06-18-2013 End: 06-18-2013 Follow Up Appt 2 months Shawanda alejandre PA-C Work Phone: Start: 05-06-2013 End: 05-06-2013 *BMP Jean Trujillo MD Start: 05-06-2013 End: 02-26-2014 *Hepatic Function Panel Shanell Mooney Start: 05-06-2013 End: 06-09-2013 Follow Up Appt 6 weeks Jean Trujillo MD Start: 05-06-2013 End: 05-06-2013 CANDELARIA Trujillo MD Screening for malign ant neoplasm of cervix Z12.4 - Encounter for screening for malignant neoplasm of cervix No Primary Care Physician Plan of Treatment Date Care Activity Detail Author Start: 04-30-2032 Tetanus vaccination Tetanus: Every [address] [facility] Start: 04-30-2032 Urine microalbumin profile [facility] Start: 2031 Pneumococcal Vaccine: Ped or At-Risk (2 of 2 - PPSV23) Pneumococcal Vaccine: Ped or At-Risk (2 of 2 - PPSV23) [facility] Start: 04-22-2029 Administration of diphtheria + tetanus + acellular pertussis vaccine DTAP/TDAP/TD VACCINE (2 - Td or Tdap) [facility] Start: 04-22-2029 Diphtheria + pertussis + tetanus vaccine (product) DTAP/TDAP/TD VACCINE (2 - Td or Tdap) [facility] Start: 04-22-2029 Tetanus vaccination [facility] Start: 04-22-2029 Tetanus, diphtheria and acellular pertussis vaccination TDAP/TD ADULT [facility] Start: 02-25-2025 BP Controlled (<130/80) BP Controlled (<130/80) [facility] Start: 01-28-2025 BP Controlled (<130/80) BP Controlled (<130/80) [facility] Start: 01-28-2025 Depression Screening Depression Screening [facility] Start: 12-23-2024 Annual PCP Team Chronic Disease Visit Annual PCP Team Chronic Disease Visit [facility] Start: 12-23-2024 BP Controlled (<130/80) BP Controlled (<130/80) [facility] Start: 11-28-2024 [facility] Start: 11-26-2024 Patient discharge [facility] Start: 11-26-2024 Referral to service [facility] Start: 11-23-2024 Blood culture [facility] Start: 11-23-2024 [facility] Start: 11-23-2024 Consultation [facility] Start: 11-21-2024 [facility] Start: 11-21-2024 End: 11-21-2024 [facility] Start: 11-20-2024 Referral to lead cashier [facility] Start: 11-20-2024 Following clinical pathway protocol [facility] Start: 11-20-2024 Assessment of risk of venous thromboembolism [facility] Start: 11-20-2024 Care regimes management [facility] Start: 11-20-2024 Catheterization of vein [facility] Start: 11-20-2024 Consultation [facility] Start: 11-20-2024 Elevation of head of bed [facility] Start: 11-20-2024 Insertion of catheter into peripheral vein [facility] Start: 11-20-2024 Measuring intake and output [facility] Start: 11-20-2024 Notification of physician [facility] Start: 11-20-2024 Providing care according to standard [facility] Start: 11-20-2024 Referral to occupational therapist [facility] Start: 11-20-2024 Referral to service [facility] Start: 11-20-2024 Vital signs measurements [facility] Start: 11-20-2024 End: 11-20-2024 [facility] Start: 11-20-2024 Admission procedure [facility] Start: 11-20-2024 Verification routine [facility] Start: 11-20-2024 Hospital admission, emergency, from emergency room, medical nature [facility] Start: 11-20-2024 End: 11-20-2024 [facility] Start: 11-20-2024 Bacteria identified in Blood by Culture Blood Culture [facility] Start: 11-20-2024 Bacteria identified in Urine by Culture Urine Culture [facility] Start: 11-20-2024 Inhalation therapy procedure [facility] Start: 11-20-2024 Patient referral to dietitian [facility] Start: 11-13-2024 BP Controlled (<130/80) BP Controlled (<130/80) [facility] Start: 11-07-2024 End: 11-07-2024 [facility] Start: 09-11-2024 BP Controlled (<130/80) BP Controlled (<130/80) [facility] Start: 09-07-2024 Patient referral [facility] Work Phone: Start: 08-30-2024 Annual PCP Team Chronic Disease Visit Annual PCP Team Chronic Disease Visit [facility] Start: 08-30-2024 BP Controlled (<130/80) BP Controlled (<130/80) [facility] Start: 08-30-2024 Diabetic foot examination Diabetic Foot Exam [facility] Start: 08-17-2024 Screening for malignant neoplasm of colon [facility] Start: 08-05-2024 Patient referral [facility] Work Phone: Start: 05-20-2024 Annual PCP Team Chronic Disease Visit Annual PCP Team Chronic Disease Visit [facility] Start: 05-20-2024 BP Controlled (<130/80) BP Controlled (<130/80) [facility] Start: 04-30-2024 Hemoglobin A1c measurement HbA1C [facility] Start: 04-28-2024 End: 04-28-2024 Patient encounter procedure 04/28/2024 8:00 AM EDT Procedure [facility] [address] [place] [address] ICD/SV [facility] Comment on above: ICD/SV Start: 04-14-2024 End: 04-14-2024 Patient encounter procedure 04/14/2024 10:40 AM EDT Office Visit [facility] [address] [place] [address] Williams Rubin MD [address] [place] [address] Annual wellness [facility] Comment on above: Annual wellness Start: 04-08-2024 End: 07-08-2024 Basic metabolic 2000 panel - Serum or Plasma BASIC METABOLIC PANEL Lab Routine Medication management Expected: 04/08/2024, Expires: 07/08/2024 [facility] Work Phone: Comment on above: Expected: 04/08/2024, Expires: Start: 04-08-2024 End: 07-08-2024 Lipid 1996 panel - Serum or Plasma LIPID PANEL BASIC Lab Routine Medication management Expected: 04/08/2024, Expires: 07/08/2024 [facility] Comment on above: Expected: 04/08/2024, Expires: Start: 04-05-2024 Glaucoma screening Dilated Retinal Exam [facility] Start: 04-05-2024 Hepatitis C antibody, confirmatory test Dilated Retinal Exam [facility] Start: 04-03-2024 End: 04-03-2024 Patient encounter procedure 04/03/2024 11:00 AM EDT Procedure [facility] [address] [place] [address] bivicd/bsci/sv [facility] Comment on above: bivicd/bsci/sv Start: 04-02-2024 End: 04-02-2024 Patient encounter procedure 04/02/2024 2:20 PM EDT Office Visit [facility] [address] [place] [address] Cfm, Pharm D [facility] [address] [place] [address] Follow up in 4 weeks [facility] Comment on above: Follow up in 4 weeks Start: 03-29-2024 Annual PCP Team Chronic Disease Visit Annual PCP Team Chronic Disease Visit [facility] Start: 03-25-2024 Hemoglobin A1c measurement HbA1C [facility] Start: 03-15-2024 ANNUAL PCP TEAM CHRONIC DISEASE VISIT ANNUAL PCP TEAM CHRONIC DISEASE VISIT [facility] Start: 03-15-2024 Covid-19 Vaccine ( season) Covid-19 Vaccine ( season) [facility] Start: 03-15-2024 Influenza vaccination Influenza Vaccine (#1) [facility] Start: 03-10-2024 End: 06-09-2024 Basic metabolic 2000 panel - Serum or Plasma BASIC METABOLIC PANEL Lab Routine Medication monitoring encounter Expected: 03/10/2024, Expires: 06/09/2024 [facility] Work Phone: Comment on above: Expected: 03/10/2024, Expires: Start: 03-10-2024 End: 06-09-2024 Lipid 1996 panel - Serum or Plasma LIPID PANEL BASIC Lab Routine Medication monitoring encounter Expected: 03/10/2024, Expires: 06/09/2024 [facility] Comment on above: Expected: 03/10/2024, Expires: Start: 03-07-2024 End: 06-06-2024 Basic metabolic 2000 panel - Serum or Plasma BASIC METABOLIC PANEL Lab Routine Medication management Expected: 03/07/2024, Expires: 06/06/2024 [facility] Work Phone: Comment on above: Expected: 03/07/2024, Expires: Start: 03-03-2024 End: 03-03-2024 Patient encounter procedure 03/03/2024 4:00 PM EDT Procedure [facility] [address] [place] [address] bivicd/bsci/sv [facility] Comment on above: bivicd/bsci/sv Start: 03-01-2024 3 comp foot exam completed DIABETIC FOOT EXAM [facility] Start: 03-01-2024 ANNUAL PCP TEAM CHRONIC DISEASE VISIT ANNUAL PCP TEAM CHRONIC DISEASE VISIT [facility] Start: 03-01-2024 Diabetic foot examination Diabetic Foot Exam [facility] Start: 02-26-2024 End: 05-27-2024 Lipid 1996 panel - Serum or Plasma LIPID PANEL BASIC Lab Routine Type 2 diabetes mellitus with diabetic neuropathy, with long-term current use of insulin (HCC) Expected: 02/26/2024, Expires: 05/27/2024 [facility] Work Phone: Comment on above: Expected: 02/26/2024, Expires: Start: 02-26-2024 End: 05-27-2024 Microalbumin/Creatinine [Mass Ratio] in Urine ALBUMIN/CREATININE RATIO, URINE Lab Routine Type 2 diabetes mellitus with diabetic neuropathy, with long-term current use of insulin (HCC) Expected: 02/26/2024, Expires: 05/27/2024 [facility] Comment on above: Expected: 02/26/2024, Expires: Start: 02-26-2024 End: 02-26-2024 Patient encounter procedure 02/26/2024 2:00 PM EDT [facility] [address] [place] [address] Cfm, Pharm D [facility] [place] [address] 3-4 weeks, telephone is fine [facility] Comment on above: 3-4 weeks, telephone is fine Start: 01-30-2024 End: 01-30-2024 Patient encounter procedure [facility] Comment on above: BSX TENTER FEEDER-D/JEREMI/1 YEAR APPT TO [facility] f/u in 1 year with Carrie Wheeler 1 year f/uEKGl ss Start: 01-29-2024 End: 01-29-2024 Patient encounter procedure 01/29/2024 11:20 AM EDT Office Visit [facility] [address] [facility] [facility] [address] Cfm, Pharm D [facility] [address] [facility] [place] [address] 4 week follow up for DM [facility] Comment on above: 4 week follow up for DM Start: 01-26-2024 Hepatitis B screening URINE ALBUMIN:CREATININE RATIO [facility] Start: 01-26-2024 Hepatitis B surface antibody level LDL CHOLESTEROL [facility] Start: 01-23-2024 ANNUAL PCP TEAM CHRONIC DISEASE VISIT ANNUAL PCP TEAM CHRONIC DISEASE VISIT [facility] Start: 01-23-2024 BP CONTROLLED (<130/80) BP CONTROLLED (<130/80) [facility] Start: 12-24-2023 End: 12-24-2023 Patient encounter procedure [facility] Comment on above: Follow up Start: 12-05-2023 End: 03-05-2024 Hemoglobin A1c in Blood HEMOGLOBIN A1C Lab Routine Type 2 diabetes mellitus with diabetic neuropathy, with long-term current use of insulin (HCC) Expected: 12/05/2023, Expires: 03/05/2024 [facility] Work Phone: Comment on above: Expected: 12/05/2023, Expires: Start: 12-05-2023 End: 12-05-2023 Patient encounter procedure [facility] Comment on above: Follow up in 3 weeks Start: 11-28-2023 Hemoglobin A1c measurement HbA1C [facility] Start: 11-14-2023 End: 11-14-2023 Patient encounter procedure 11/14/2023 1:20 PM EDT Office Visit [facility] [address] [place] [address] Cfm, Pharm D Clinic [facility] [address] [place] [address] 15 day follow up . Mickey pulido MA [facility] Comment on above: 15 day follow up . Mickey pulido MA Start: 10-06-2023 [facility] Start: 08-20-2023 Hemoglobin A1c measurement HbA1C [facility] Start: 08-20-2023 Hemoglobin A1c/Hemoglobin.total in Blood HbA1C [facility] Start: 08-19-2023 Covid-19 Vaccine () Covid-19 Vaccine () [facility] Start: 07-15-2023 Behavioral Health Screening Behavioral Health Screening [facility] Start: 07-15-2023 Depression Assessment Depression Assessment [facility] Start: 05-14-2023 Hepatitis C antibody, confirmatory test Dilated Retinal Exam [facility] Comment on above: Postponed from 11/15/2018 (Postponed To Appropriate Date) Start: 05-01-2023 End: 07-31-2023 Hemoglobin A1c in Blood HGB A1C Lab Routine Type 2 diabetes mellitus with diabetic neuropathy, with long-term current use of insulin (HCC) Expected: 05/01/2023, Expires: 07/31/2023 [facility] Work Phone: Comment on above: Expected: 05/01/2023, Expires: Start: 04-24-2023 Hemoglobin A1c/Hemoglobin.total in Blood HBA1C [facility] Start: 03-15-2023 Covid-19 Vaccine () Covid-19 Vaccine () [facility] Start: 03-15-2023 Influenza vaccination [facility] Start: 02-05-2023 End: 04-07-2023 Lipid 1996 panel - Serum or Plasma LIPID PANEL BASIC Lab Routine Type 2 diabetes mellitus with diabetic neuropathy, with long-term current use of insulin (HCC) Essential hypertension, benign Expected: 02/05/2023 (Approximate), Expires: 04/07/2023 [facility] Work Phone: Comment on above: Expected: 02/05/2023 (Approximate), Expi res: 04/07/2023 Start: 01-28-2023 Encounter for problem [facility] Work Phone: Start: 01-23-2023 Depression screening using PHQ-9 (Patient Health Questionnaire 9) score DEPRESSION SCREENING [facility] Start: 01-23-2023 Diabetic foot examination FOOT EXAM [facility] Start: 01-23-2023 Urine screening for protein [facility] Start: 01-22-2023 End: 03-24-2023 ALBUMIN/CREAT RATIO RND UR ALBUMIN/CREAT RATIO RND UR Lab Routine Type 2 diabetes mellitus with diabetic neuropathy, with long-term current use of insulin (HCC) Expected: 01/22/2023, Expires: 03/24/2023 [facility] Work Phone: Comment on above: Expected: 01/22/2023, Expires: 3 Start: 01-22-2023 End: 03-24-2023 CBC W Auto Differential panel - Blood CBC + DIFF Lab Routine Type 2 diabetes mellitus with diabetic neuropathy, with long-term current use of insulin (HCC) Essential hypertension, benign Expected: 01/22/2023, Expires: 03/24/2023 [facility] Work Phone: Comment on above: Expected: 01/22/2023, Expires: 3 Start: 01-22-2023 End: 03-24-2023 Comprehensive metabolic 2000 panel - Serum or Plasma COMP METABOLIC PANEL Lab Routine Type 2 diabetes mellitus with diabetic neuropathy, with long-term current use of insulin (HCC) Essential hypertension, benign Expected: 01/22/2023, Expires: 03/24/2023 [facility] Work Phone: Comment on above: Expected: 01/22/2023, Expires: 3 Start: 01-22-2023 End: 03-24-2023 HIV 1+2 Ab [Presence] in Serum or Plasma by Immunoassay HIV 1 2 COMBO(AG/AB),WITH REFLEX TO DIFFERENTIATION Lab Routine Screening for HIV (human immunodeficiency virus) Expected: 01/22/2023, Expires: 03/24/2023 [facility] Work Phone: Comment on above: Expected: 01/22/2023, Expires: 3 Start: 01-22-2023 End: 03-24-2023 Magnesium [Mass/volume] in Serum or Plasma MAGNESIUM BLD Lab Routine Essential hypertension, benign Expected: 01/22/2023, Expires: 03/24/2023 [facility] Work Phone: Comment on above: Expected: 01/22/2023, Expires: 3 Start: 01-22-2023 End: 03-24-2023 Thyrotropin [Units/volume] in Serum or Plasma TSH BLD Lab Routine Obesity, Class II, BMI 35-39.9 Expected: 01/22/2023, Expires: 03/24/2023 [facility] Work Phone: Comment on above: Expected: 01/22/2023, Expires: 3 Start: 01-22-2023 End: 03-24-2023 Thyroxine (T4) free [Mass/volume] in Serum or Plasma T4 FREE/FREE THYROX Lab Routine Obesity, Class II, BMI 35-39.9 Expected: 01/22/2023, Expires: 03/24/2023 [facility] Work Phone: Comment on above: Expected: 01/22/2023, Expires: 3 Start: 09-19-2022 End: 09-19-2022 Patient encounter procedure [facility] Start: 09-06-2022 Depression screening using PHQ-9 (Patient Health Questionnaire 9) score DEPRESSION SCREENING [facility] Start: 08-31-2022 ANNUAL WELLNESS VISIT ANNUAL WELLNESS VISIT [facility] Start: 08-30-2022 History and physical examination, annual for health maintenance Wellness Visit [facility] Start: 07-26-2022 Hemoglobin A1c measurement A1C [facility] Start: 07-15-2022 DEPRESSION ASSESSMENT DEPRESSION ASSESSMENT [facility] Start: 05-07-2022 End: 05-07-2022 Patient encounter procedure 05/07/2022 Appointment Cardiology [facility] Start: 05-02-2022 COVID-19 Vaccine (5 - Booster for Moderna series) COVID-19 Vaccine (5 - Booster for Moderna series) [facility] Start: 05-02-2022 COVID-19 VACCINE (5 - Moderna series) COVID-19 VACCINE (5 - Moderna series) [facility] Start: 04-25-2022 Hemoglobin A1c measurement HEMOGLOBIN A1C [facility] Start: 04-23-2022 End: 04-23-2022 Patient encounter procedure 04/23/2022 Office Visit Cardiology Milka Rodriguez MD [address] [place], [place] [id number] [facility] Start: 04-20-2022 End: 04-20-2022 Patient encounter procedure 04/20/2022 Office Visit Cardiology Abbey Oliveira CNP [address] [place], [place] [id number] [facility] Start: 04-03-2022 Encounter for problem Fina Lemos Work Phone: Start: 03-15-2022 Influenza vaccination Sequential Influenza Vaccine (#1) [facility] Start: 03-15-2022 Influenza vaccination given INFLUENZA VACCINE (#1) [facility] Start: 03-08-2022 End: 03-08-2022 Patient encounter procedure 03/08/2022 Office Visit Endocrinology Dave Phan MD [address] [address] [facility] Start: 03-07-2022 End: 03-07-2022 Patient encounter procedure 03/07/2022 Office Visit Family Medicine Ha Rivas APRN BINDERY WORKER-C [address] [place] [id number] [facility] Start: 02-12-2022 Influenza vaccination Flu vaccine (#1) [facility] Start: 01-25-2022 Encounter for problem [facility] Work Phone: Start: 01-11-2022 Encounter for problem Fina Lemos. Work Phone: Start: 12-12-2021 Encounter for problem Fina Lemos Work Phone: Start: 11-24-2021 COVID-19 VACCINE (4 - Booster for Moderna series) COVID-19 VACCINE (4 - Booster for Moderna series) [facility] Start: 11-16-2021 End: 11-16-2021 Patient encounter procedure 11/16/2021 Office Visit Dentistry [facility] Start: 11-13-2021 Hemoglobin A1c measurement [facility] Start: 10-31-2021 End: 10-31-2021 ambulatory 10/31/2021 PaceArt Device Check Cardiology [facility] Start: 10-24-2021 End: 10-24-2021 Telemedicine consultation with patient 10/24/2021 Telemedicine Family Medicine Ha Rivas APRN BINDERY WORKER-C [address] [place] [id number] [facility] Start: 10-23-2021 End: 10-23-2021 Patient encounter procedure 10/23/2021 Appointment Cardiology Nick Branch MD [address] [place] [id number] [facility] Start: 10-09-2021 Sly Nix D.P.M. Work Phone: Start: 09-27-2021 Colonoscopy COLONOSCOPY [facility] Start: 09-27-2021 COLORECTAL CANCER SCREENING COLORECTAL CANCER SCREENING [facility] Start: 09-27-2021 Screening for malignant neoplasm of colon [facility] Start: 09-08-2021 Albumin DL <= 20 mg/L (U) [Mass/Vol] Urine Microalbumin [facility] Start: 09-08-2021 Diabetic foot examination FOOT EXAM [facility] Start: 09-08-2021 Lipid panel LIPIDS [facility] Start: 09-08-2021 Microalbumin measurement, urine, quantitative Urine Microalbumin [facility] Start: 09-08-2021 Renal function test NOS RENAL PROFILE [facility] Start: 09-08-2021 Urine screening for protein MICROALBUMINURIA [facility] Start: 07-27-2021 Encounter for problem Fina Lemos. Work Phone: Start: 06-13-2021 Encounter for problem Fina Lemos. Work Phone: Start: 06-05-2021 Encounter for problem Fina Lemos. Work Phone: Start: 04-04-2021 End: 04-04-2021 Patient encounter procedure 04/04/2021 Appointment Cardiology Nick Branch MD [address] [place] [address] [facility] Start: 03-15-2021 Influenza vaccination [facility] Start: 02-12-2021 Ophthalmic examination and evaluation OPHTHALMOLOGY EXAM [facility] Start: 12-25-2020 End: 12-25-2020 Appointment 12/25/2020 Appointment Cardiology [facility] Start: 11-29-2020 Albumin DL <= 20 mg/L (U) [Mass/Vol] Urine Microalbumin [facility] Start: 10-26-2020 COVID-19 Vaccine (2 - Moderna 2-dose series) COVID-19 Vaccine (2 - Moderna 2-dose series) [facility] Start: 09-15-2020 End: 09-15-2020 Appointment 09/15/2020 Appointment Cardiology [facility] Start: 08-18-2020 Adult depression screening assessment DEPRESSION SCREENING [facility] Start: 08-11-2020 End: 08-11-2020 Office Visit 08/11/2020 Office Visit Cardiology Abbey Oliveira, SPEECH LANGUAGE SPECIALIST [address] [place] [address] [phone] [facility] Start: 08-02-2020 End: 08-02-2020 Office Visit 08/02/2020 Office Visit Obstetrics and Gynecology Keshia Sterling APRN CNM [address] [place] [address] [facility] Start: 07-28-2020 Adult depression screening assessment DEPRESSION SCREENING [facility] Start: 07-28-2020 ANNUAL WELLNESS VISIT ANNUAL WELLNESS VISIT [facility] Start: 06-07-2020 End: 06-07-2020 Appointment 06/07/2020 Appointment Cardiology [facility] Start: 06-01-2020 Diabetic foot examination FOOT EXAM [facility] Start: 05-28-2020 Screening mammography MAMMOGRAM [facility] Start: 05-08-2020 Lipid panel LIPIDS [facility] Start: 05-08-2020 Renal function test NOS RENAL PROFILE [facility] Start: 04-01-2020 End: 04-01-2020 Appointment 04/01/2020 Appointment Cardiology [facility] Start: 03-29-2020 End: 03-29-2020 Office Visit 03/29/2020 Office Visit Cardiology [facility] Start: 03-15-2020 Influenza vaccination given Sequential Influenza Vaccine (#1) [facility] Start: 02-24-2020 Hepatitis B screening URINE ALBUMIN:CREATININE RATIO [facility] Start: 12-29-2019 End: 12-29-2019 Office Visit 12/29/2019 Office Visit Cardiology [facility] Start: 12-22-2019 End: 12-22-2019 PaceArt Device Check 12/22/2019 PaceArt Device Check Cardiology [facility] Start: 12-14-2019 Ophthalmic examination and evaluation OPHTHALMOLOGY EXAM [facility] Start: 11-17-2019 End: 11-17-2019 Office Visit 11/17/2019 Office Visit Cardiology [facility] Start: 10-07-2019 End: 10-07-2019 PaceArt Device Check 10/07/2019 PaceArt Device Check Cardiology [facility] Start: 09-01-2019 HbA1c (Bld) [Mass fraction] HEMOGLOBIN A1C [facility] Start: 09-01-2019 End: 09-01-2019 Office Visit 09/01/2019 Office Visit Family Medicine Ha Rivas APRN BINDERY WORKER-C [address] [place] [phone] [facility] Start: 07-21-2019 Hepatitis B surface antibody level LDL CHOLESTEROL [facility] Start: 07-01-2019 Hepatitis B vaccination HEPATITIS B VACCINE (ADULT) (#2) [facility] Start: 12-03-2018 Mammography [facility] Start: 12-03-2018 Screening for malignant neoplasm of breast Mammogram Screening [facility] Start: 11-15-2018 Hepatitis C antibody, confirmatory test DILATED RETINAL EXAM [facility] Start: 10-23-2018 3 comp foot exam completed DIABETIC FOOT EXAM [facility] Start: 09-09-2017 End: 09-09-2017 Appointment Appointment [facility] Work Phone: Start: 06-11-2017 End: 06-11-2017 Magnesium *Magnesium [facility] Work Phone: Start: 11-27-2016 End: 11-27-2016 *CMP Complete Metabolic Panel *CMP Complete Metabolic Panel [facility] Work Phone: Start: 11-27-2016 End: 11-27-2016 Hemoglobin A1c/Hemoglobin.total mass fraction (Bld) *HgA1C [facility] Work Phone: Start: 11-27-2016 End: 11-27-2016 Lipid panel [AGGREGATE] *Lipid Profile [facility] Work Phone: Start: 09-17-2016 Colonoscopy [facility] Start: 09-17-2016 Screening for malignant neoplasm of colon COLORECTAL CANCER SCREENING [facility] Start: 09-04-2016 End: 09-04-2016 *CMP Complete Metabolic Panel *CMP Complete Metabolic Panel [facility] Work Phone: Start: 09-04-2016 End: 09-04-2016 *Microalbumin, Creatine Ratio, rand urine *Microalbumin, Creatine Ratio, rand urine [facility] Work Phone: Start: 09-04-2016 End: 09-07-2016 1,25-Dihydroxyvitamin D [Mass/volume] in Serum or Plasma *[id number] Vitamin D, 1, 25- DiHydroxy [facility] Work Phone: Start: 09-04-2016 End: 09-08-2016 [employer] [facility], [address], [place], [address] [facility] Work Phone: Start: 09-04-2016 End: 09-04-2016 Hemoglobin A1c/Hemoglobin.total mass fraction (Bld) *HgA1C [facility] Work Phone: Start: 09-04-2016 End: 09-04-2016 Lipid panel [AGGREGATE] *Lipid Profile [facility] Work Phone: Start: 09-04-2016 End: 09-04-2016 Thyroid stimulating hormone (TSH) *TSH [facility] Work Phone: Start: 2016 Administration of herpes zoster vaccine Zoster Vaccines (1 of 2) [facility] Start: 2016 Screening for malignant neoplasm of colon [facility] Start: 2016 SHINGLES VACCINE (1 of 2) SHINGLES VACCINE (1 of 2) [facility] Start: 2016 SHINGRIX VACCINE (1 of 2) SHINGRIX VACCINE (1 of 2) [facility] Start: 05-10-2015 End: 05-10-2015 Follow Up Appt 3 months Follow Up Appt 3 months [facility] Work Phone: Start: 05-10-2015 End: 05-10-2015 [facility] Work Phone: Start: 01-31-2015 End: 01-31-2015 Follow Up Appt 3 months Follow Up Appt 3 months [facility] Work Phone: Start: 01-31-2015 End: 01-31-2015 [facility] Work Phone: Start: 11-09-2014 End: 08-03-2014 *Hepatic Function Panel *Hepatic Function Panel [facility] Work Phone: Start: 11-09-2014 End: 08-03-2014 Lipid panel [AGGREGATE] *Lipid Profile CC PCP [facility] Work Phone: Start: 10-28-2014 End: 10-28-2014 Follow Up Appt 3 months Follow Up Appt 3 months [facility] Work Phone: Start: 10-28-2014 End: 10-28-2014 [facility] Clinic [facility] Work Phone: Start: 07-28-2014 End: 07-28-2014 Follow Up Appt 3 months Follow Up Appt 3 months [facility] Work Phone: Start: 07-28-2014 End: 07-28-2014 [facility] Work Phone: Start: 04-26-2014 End: 04-26-2014 Follow Up Appt 3 months Follow Up Appt 3 months [facility] Work Phone: Start: 04-26-2014 End: 04-26-2014 [facility] Work Phone: Start: 03-31-2014 Screening for malignant neoplasm of colon Fecal occult blood test (FOBT,FIT) [facility] Start: 03-30-2014 FECAL OCCULT BLOOD FECAL OCCULT BLOOD [facility] Start: 03-30-2014 Screening for malignant neoplasm of colon Fecal Occult Blood [facility] Start: 03-16-2014 End: 03-16-2014 INSURANCE ACCOUNT MANAGER INSURANCE ACCOUNT MANAGER [facility] Work Phone: Start: 03-16-2014 [...] Disease Work Phone: Start: 01-22-2014 End: 02-26-2014 Pacer Clinic [facility] Work Phone: Start: 11-26-2013 End: 11-26-2013 Follow Up Appt 3 months Follow Up Appt 3 months [facility] Work Phone: Start: 11-26-2013 End: 11-26-2013 MMM MMM [facility] Work Phone: Start: 10-21-2013 End: 02-26-2014 Follow Up Appt 3 months Follow Up Appt 3 months [facility] Work Phone: Start: 10-21-2013 End: 02-26-2014 Pacer Clinic Pacer Clinic [facility] Work Phone: Start: 09-10-2013 End: 02-26-2014 Follow Up Appt 1 month Follow Up Appt 1 month [facility] Work Phone: Start: 09-10-2013 End: 02-26-2014 Pacer Clinic Pacer Clinic [facility] Work Phone: Start: 08-21-2013 End: 08-21-2013 INSURANCE ACCOUNT MANAGER INSURANCE ACCOUNT MANAGER [facility] Work Phone: Start: 08-21-2013 End: 08-21-2013 Follow Up Appt 3 months Follow Up Appt 3 months [facility] Work Phone: Start: 07-15-2013 Pneumococcal Vaccine: Ped or At-Risk (2 - PCV) Pneumococcal Vaccine: Ped or At-Risk (2 - PCV) [facility] Start: 07-15-2013 Pneumococcal Vaccine: Ped or At-Risk (2 of 2 - PCV) Pneumococcal Vaccine: Ped or At-Risk (2 of 2 - PCV) [facility] Start: 06-18-2013 End: 06-18-2013 INSURANCE ACCOUNT MANAGER INSURANCE ACCOUNT MANAGER [facility] Work Phone: Start: 06-18-2013 End: 02-26-2014 Echocardiography Echocardiogram (limited) [facility] Work Phone: Start: 06-18-2013 End: 06-18-2013 Follow Up Appt 2 months Follow Up Appt 2 months [facility] Work Phone: Start: 05-06-2013 End: 05-06-2013 *BMP *BMP [facility] Work Phone: Start: 05-06-2013 End: 02-26-2014 *Hepatic Function Panel *Hepatic Function Panel [facility] Work Phone: Start: 05-06-2013 End: 06-09-2013 Follow Up Appt 6 weeks Follow Up Appt 6 weeks [facility] Work Phone: Start: 05-06-2013 End: 05-06-2013 MMM MMM [facility] Work Phone: Start: 03-21-2013 PNEUMOCOCCAL (2 - PCV) PNEUMOCOCCAL (2 - PCV) [facility] Start: 2011 COLOGUARD (FIT-DNA) COLOGUARD (FIT-DNA) [facility] Start: [address] COLONOGRAPHY [facility] Start: 2011 Screening for malignant neoplasm of colon [facility] Start: 2011 SIGMOIDOSCOPY SIGMOIDOSCOPY [facility] Start: 2006 Screening for malignant neoplasm of breast Mammogram [facility] Start: 2006 Screening mammography Mammogram [facility] Start: 1985 DTaP/Tdap/Td vaccine (1 - Tdap) DTaP/Tdap/Td vaccine (1 - Tdap) [facility] Start: 1985 Hepatitis B Vaccine (1 of 3 - 19+ 3-dose series) Hepatitis B Vaccine (1 of 3 - 19+ 3-dose series) [facility] Start: 1985 Urine microalbumin profile DTAP,TDAP,TD (1 - Tdap) [facility] Start: 1984 BP CONTROLLED (<130/80) BP CONTROLLED (<130/80) [facility] Start: 1984 Hepatitis C antibody, confirmatory test Hepatitis C Screening [facility] Start: 1984 Hepatitis C screening Hepatitis C Screening [facility] Start: 1984 HIV SCREENING HIV SCREENING [facility] Start: 1984 WELLNESS ANNUAL VISIT WELLNESS ANNUAL VISIT [facility] Start: 1982 COVID-19 Vaccine (1 of 2) COVID-19 Vaccine (1 of 2) [facility] Start: 1981 HIV screening HIV Screening [facility] Start: 1976 Albumin DL <= 20 mg/L (U) [Mass/Vol] URINE MICROALBUMIN [facility] Start: 1976 Diabetic foot examination [facility] Start: 1976 Glaucoma screening [facility] Start: 1976 Ophthalmic examination and evaluation Ophthalmology Exam [facility] Start: 1972 Pneumococcal Vaccine: Ped or At-Risk (1 of 2 - PPSV23) Pneumococcal Vaccine: Ped or At-Risk (1 of 2 - PPSV23) [facility] Start: 1969 History and physical examination, annual for health maintenance Wellness Visit [facility] Start: 01-11-1967 COVID-19 Vaccine (#1) COVID-19 Vaccine (#1) [facility] Start: 1966 HbA1c (Bld) [Mass fraction] A1C [facility] Start: 1966 Hemoglobin A1c measurement A1C [facility] Start: 1966 HEPATITIS B (1 of 3 - 3-dose series) HEPATITIS B (1 of 3 - 3-dose series) [facility] Start: 1966 Hepatitis B Vaccine (1 of 3 - 3-dose series) Hepatitis B Vaccine (1 of 3 - 3-dose series) [facility] Start: 1966 Nephropathy screening MICROALBUMINURIA [facility] Start: 1966 Screening for malignant neoplasm of cervix PAP SMEAR [facility] Start: 1966 Screening for malignant neoplasm of colon [facility] Start: 1966 Screening mammography Mammogram [facility] End: 04-09-2023 Alanine aminotransferase [Enzymatic activity/volume] in Serum or Plasma ALT Lab Routine Nonischemic cardiomyopathy (HCC) Benign essential HTN HFrEF (heart failure with reduced ejection fraction) (HCC) 1 Occurrences starting 04/09/2022 until 04/09/[address] [facility] Comment on above: 1 Occurrences starting 04/09/2022 until 04/09/2023 End: 04-09-2023 Aspartate aminotransferase [Enzymatic activity/volume] in Serum or Plasma AST Lab Routine Nonischemic cardiomyopathy (HCC) Benign essential HTN HFrEF (heart failure with reduced ejection fraction) (HCC) 1 Occurrences starting 04/09/2022 until 04/09/[address] [facility] Comment on above: 1 Occurrences starting 04/09/2022 until 04/09/2023 End: 12-14-2020 Basic metabolic 2000 panel Basic metabolic panel Lab Routine MCKNIGHT (dyspnea on exertion) 1 Occurrences starting 12/15/2019 until 12/14/[address] [facility] Comment on above: 1 Occurrences starting 12/15/2019 until 12/14/2020 End: 07-29-2021 Basic metabolic 2000 panel Basic metabolic panel Lab Routine Benign essential HTN 1 Occurrences starting 07/29/2020 until 07/29/[address] [facility] Comment on above: 1 Occurrences starting 07/29/2020 until 07/29/2021 End: 04-09-2023 Basic metabolic 2000 panel - Serum or Plasma Basic Metabolic Panel Lab Routine Nonischemic cardiomyopathy (HCC) Benign essential HTN HFrEF (heart failure with reduced ejection fraction) (HCC) 1 Occurrences starting 04/09/2022 until 04/09/[address] [facility] Work Phone: Comment on above: 1 Occurrences starting 04/09/2022 until 04/09/2023 Basic metabolic 2008 panel with ionized calcium - Serum or Plasma [facility] End: 08-17-2020 CBC with Differential CBC with Differential Lab Routine Pre-operative clearance 1 Occurrences starting 08/18/2019 until 08/17/2020 [facility] Comment on above: 1 Occurrences starting 08/18/2019 until 08/17/2020 End: 08-28-2020 Chlamydia trachomatis+Neisseria gonorrhoeae rRNA [Presence] in Cervix by Probe GC & Chlamydia Amplified Probe Microbiology Routine Screen for STD (sexually transmitted disease) 1 Occurrences starting 07/28/2019 until 08/28/2020 [facility] Comment on above: 1 Occurrences starting 07/28/2019 until 08/28/2020 End: 08-17-2020 Comprehensive metabolic panel aka Metabo Comprehensive metabolic panel aka Metabo Lab Routine Pre-operative clearance 1 Occurrences starting 08/18/2019 until 08/17/2020 [facility] Comment on above: 1 Occurrences starting 08/18/2019 until 08/17/2020 End: 10-20-2020 Contrast echocardiography Echocardiogram complete w contrast Echocardiography Routine Nonischemic cardiomyopathy (HCC) MCKNIGHT (dyspnea on exertion) 1 Occurrences starting 08/21/2019 until 10/20/[address] [facility] Comment on above: 1 Occurrences starting 08/21/2019 until 10/20/2020 End: 02-27-2025 DBT Breast - bilateral screening SALEEM SCREENING [facility] Radiology Routine Encounter for screening mammogram for breast cancer 1 Occurrences starting 01/29/2024 until 02/27/2025 [facility] Work Phone: Comment on above: 1 Occurrences starting 01/29/2024 until 02/27/2025 End: 01-30-2024 Echocardiography ECHO Cardiology Routine NICM (nonischemic cardiomyopathy) (HCC) 1 Occurrences starting 01/29/2023 until 01/30/2024 [facility] Work Phone: Comment on above: 1 Occurrences starting 01/29/2023 until 01/30/2024 Im adm prq id subq/i m [id number] 1 vaccine IMADM PRQ ID SUBQ/IM [id number] 1 VACC Immunization/Injection Routine Encounter for immunization Ordered: 03/15/2023 [facility] Work Phone: Comment on above: Ordered: 03/15/2023 Lactic acid measurement [facility] End: 12-14-2020 Magnesium [Mass/Vol] Magnesium Lab Routine MCKNIGHT (dyspnea on exertion) 1 Occurrences starting 12/15/2019 until 12/14/[address] [facility] Comment on above: 1 Occurrences starting 12/15/2019 until 12/14/2020 End: 07-29-2021 Magnesium [Mass/Vol] Magnesium Lab Routine Benign essential HTN 1 Occurrences starting 07/29/2020 until 07/29/[address] [facility] Comment on above: 1 Occurrences starting 07/29/2020 until 07/29/2021 End: 04-09-2023 Magnesium [Mass/volume] in Serum or Plasma Magnesium Level Lab Routine Nonischemic cardiomyopathy (HCC) Benign essential HTN HFrEF (heart failure with reduced ejection fraction) (HCC) 1 Occurrences starting 04/09/2022 until 04/09/[address] [facility] Comment on above: 1 Occurrences starting 04/09/2022 until 04/09/2023 End: 02-21-2024 SALEEM SCREENING SALEEM SCREENING Radiology Routine Encounter for screening mammogram for breast cancer 1 Occurrences starting 01/22/2023 until 02/21/2024 [facility] Work Phone: Comment on above: 1 Occurrences starting 01/22/2023 until 02/21/2024 MG Breast - bilatera l Screening [facility] End: 04-09-2023 Natriuretic peptide.B prohormone N-Terminal [Mass/volume] in Serum or Plasma NT Pro BNP Lab Routine Nonischemic cardiomyopathy (HCC) Benign essential HTN HFrEF (heart failure with reduced ejection fraction) (HCC) 1 Occurrences starting 04/09/2022 until 04/09/[address] [facility] Comment on above: 1 Occurrences starting 04/09/2022 until 04/09/2023 End: 12-28-2020 Nocturnal pulse oximetry Nocturnal pulse oximetry [facility] Routine PAXTON (obstructive sleep apnea) 1 Occurrences starting 12/29/2019 until 12/28/[address] [facility] Comment on above: 1 Occurrences starting 12/29/2019 until 12/28/2020 Patient Education Juan leger [facility] [employer] Work Phone: Patient referral Katrin steiner [facility] [employer] Work Phone: POCT rack urine POCT rack urine Point of Care Testing Routine Pre-operative clearance Ordered: 08/18/2019 [employer] [facility] Comment on above: Ordered: 08/18/2019 Recommendations Sly Nix D.P.M. Work Phone: End: 10-29-2024 Screening colonoscopy COLONOSCOPY SCREENING Endoscopy Routine Screening for colon cancer 1 Occurrences starting 10/30/2023 until 10/29/2024 [facility] Work Phone: Comment on above: 1 Occurrences starting 10/30/2023 until 10/29/2024 Standard ECG EKG Order ECG Ro utine Pre-operative clearance Ordered: 08/18/2019 [facility] Comment on above: Ordered: 08/18/2019 End: 10-10-2021 Thyroid Peroxidase Antibody (TPO Ab) [facility] Work Phone: Comment on above: 1 Occurrences starting 10/10/2021 until 10/10/2021 End: 10-10-2021 THYROID STIMULATING IMMUNOGLOBULIN (TSI) [facility] Comment on above: 1 Occurrences starting 10/10/2021 until 10/10/2021 End: 08-28-2020 Trichomonas Amplified Probe Trichomonas Amplified Probe Microbiology Routine Screen for STD (sexually transmitted disease) 1 Occurrences starting 07/28/2019 until 08/28/2020 [facility] Comment on above: 1 Occurrences starting 07/28/2019 until 08/28/2020 End: 10-10-2021 TSH RECEPTOR ANTIBODY [facility] Comment on above: 1 Occurrences starting 10/10/2021 until 10/10/2021 Urine culture [facility] End: 09-15-2020 XR Chest PA and lateral upright XR Chest PA and lat Imaging Routine Pre-operative clearance 1 Occurrences starting 08/18/2019 until 09/15/2020 [facility] Comment on above: 1 Occurrences starting 08/18/2019 until 09/15/2020 [facility] Immunizations Immunization Date Immunization Notes Care Provider Fa cili 08-05-2024 influenza, injectabl e, madin erlinda canine kidney, preservative free No Primary Care Physician [facility] 08-05-2024 Influenza, injectabl e, Madin Erlinda Canine Kidney, preservative free, quadrivalent No Primary Care Physician [facility] 06-24-2023 COVID-19 original vaccine, booster dose, monovalent (MODERNA) [facility] Rubin MD Work Phone: [facility] Work Phone: 05-30-2023 Pfizer Covid-19 (Comirnaty) No Primary Care Physician [facility] 05-20-2023 influenza, injectabl e, quadrivalent, contains preservative Williams Rubin MD Work Phone: [facility] 05-20-2023 influenza, injectabl e, quadrivalent, preservative free No Primary Care Physician [facility] 05-20-2023 influenza virus vaccine, unspecified formulation Pharm Cfm [facility] 03-15-2023 pneumococcal Conjuga te, unspecified formulation Manny Shields MD Work Phone: [facility] Work Phone: 03-15-2023 pneumococcal (PCV20) vaccine, 20 valent (PREVNAR 20) Manny Shields MD Work Phone: [facility] 04-30-2022 tetanus toxoid, redu suzette diphtheria toxoid, and acellular pertussis vaccine, adsorbed [employer] Ha Evelyn Work Phone: [facility] 03-07-2022 Covid (Moderna) No Primary C are Physician [facility] 01-23-2022 HEMOGLOBIN A1C Dave Phan MD Work Phone: [facility] 08-16-2021 HEMOGLOBIN A1C Dave Phan MD Work Phone: [facility] 07-27-2021 Moderna Covid-19 Vaccine Dave Phan MD Work Phone: [facility] 05-16-2021 influenza, injectabl e, quadrivalent, preservative free No Primary Care Physician [facility] 05-16-2021 influenza, seasonal, injectable Dave Phan MD Work Phone: [facility] 05-16-2021 influenza virus vaccine, unspecified formulation Dave Phan MD Work Phone: [facility] 10-26-2020 Moderna Covid-19 Vaccine Dave Phan MD Work Phone: [facility] 09-28-2020 Moderna Covid-19 Vaccine Dave Phan MD Work Phone: [facility] 09-08-2020 influenza, injectabl e, quadrivalent, preservative free No Primary Care Physician [facility] 09-08-2020 influenza, seasonal, injectable Dave Phan MD Work Phone: [facility] 05-03-2020 zoster vaccine recombinant Dave Phan MD Work Phone: [facility] 03-30-2020 zoster vaccine recombinant Dave Phan MD Work Phone: [facility] 12-29-2019 zoster vaccine recombinant Dave Phan MD Work Phone: [facility] 06-01-2019 HEMOGLOBIN A1C [facility] 04-22-2019 influenza, injectabl e, quadrivalent, preservative free No Primary Care Physician [facility] 04-22-2019 influenza, seasonal, injectable [facility] 04-22-2019 tetanus toxoid, redu suzette diphtheria toxoid, and acellular pertussis vaccine, adsorbed [facility] 05-26-2018 influenza, injectabl e, quadrivalent, contains preservative Dave Phan MD Work Phone: [facility] 05-26-2018 influenza, injectabl e, quadrivalent, preservative free No Primary Care Physician [facility] 04-14-2017 Influenza virus vaccine [facility] 04-14-2017 influenza, seasonal, injectable Dave Phan MD Work Phone: [facility] 04-14-2017 influenza, seasonal, injectable, preservative free Dave Phan MD Work Phone: [facility] 03-28-2017 influenza, injectabl e, quadrivalent, contains preservative Dave Phan MD Work Phone: [facility] 03-28-2017 influenza, injectabl e, quadrivalent, preservative free No Primary Care Physician [facility] 05-11-2016 influenza, injectabl e, quadrivalent, contains preservative Dave Phan MD Work Phone: [facility] 05-11-2016 influenza, injectabl e, quadrivalent, preservative free No Primary Care Physician [facility] 06-20-2015 influenza, injectabl e, quadrivalent, contains preservative Ronny Wheeler MD Work Phone: [facility] 06-20-2015 influenza, injectabl e, quadrivalent, preservative free No Primary Care Physician [facility] 06-20-2015 influenza, seasonal, injectable Dave Phan MD Work Phone: [facility] 06-21-2014 influenza, injectabl e, quadrivalent, preservative free No Primary Care Physician [facility] 06-21-2014 influenza, seasonal, injectable Dave Phan MD Work Phone: [facility] 10-26-2013 TD(adult) unspecifie d formulation Dave Phan MD Work Phone: [facility] 04-30-2013 influenza virus vaccine, unspecified formulation Ronny Wheeler MD Work Phone: [facility] Work Phone: 07-15-2012 pneumococcal polysaccharide vaccine, 23 valent Dave Phan MD Work Phone: [facility] 04-14-2012 pneumococcal polysaccharide vaccine, 23 valent Dave Phan MD Work Phone: [facility] Work Phone: 04-14-2012 pneumococcal vaccine , unspecified formulation [facility] 03-21-2012 pneumococcal polysaccharide vaccine, 23 valent Dave Phan MD Work Phone: [facility] 04-14-2011 influenza virus vaccine, unspecified formulation Ronny Wheeler MD Work Phone: [facility] 05-23-2009 novel [id number], live virus for nasal administration Dave Phan MD Work Phone: [facility] Payers Date Payer Category Payer Self-pay [id number] 2023 Unknown NATALI HURST HI X [id number] 2023-Present [phone] [address] [address] [place] [address] O [id number] .7.3.156522.315 2023 Unknown [id number] 2022 Medicaid [id number] 2021 Private Health Insurance [facility] [id number] 2021-Present [phone] [address] [place] [address] Medicaid [id number] .[id number] 2019 Medicaid [id number] 1.2.840.312446.1.13.385.2 .7.3.896621.315 2019 Medicaid [id number]. 1.13.385.2 .7.3.451992.315 2019 Private Health Insurance xxxxxxxxx 1.2.840.969123.1.13.248.2 .7.3.132584.315 2014 Private Health Insurance [id number] 1965 Unknown [id number] 2.16.840.1.205941.3.579.2 .651 1966 Unknown [id number] 2.16.840.1.253739.3.579.2 .204 1966 Unknown [id number] 2.16.840.1.015596.3.579.2 .900 1966 Unknown [id number] 2.16.840.1.194896.3.579.2 .900 1966 Unknown [id number] 2.16.840.1.016492.3.579.2 .900 1966 Unknown [id number] 2.16.840.1.471648.3.579.2 .900 1966 Unknown [id number] 2.16.840.1.457512.3.579.2 .297 1966 Unknown [id number] 2.16.840.1.210349.3.579.2 .297 1966 Unknown [id number] 2.16.840.1.494131.3.579.2 .297 1966 Unknown [id number] 2.16.840.1.607634.3.579.2 .297 1966 Unknown [id number] 2.16.840.1.763056.3.579.2 .297 1966 Unknown [id number] 2.16.840.1.778696.3.579.2 .297 1966 Unknown [id number] 2.16.840.1.938940.3.579.2 .297 1966 Unknown [id number] 2.16.840.1.431921.3.579.2 .297 1966 Unknown [id number] 2.16840.1.775204.3.579.2 .297 1966 Unknown [id number] 2.16.840.1.828298.3.579.2 .297 1966 Unknown [id number] 2.16.840.1.458429.3.579.2 .903 1966 Unknown [id number] 2.840.1.664328.3.579.2 .903 1966 Unknown [id number] 2.16840.1.371100.3.579.2 .903 1966 Unknown [id number] 2.16840.1.982249.3.579.2 .903 1966 Unknown [id number] 2.16840.1.903025.3.579.2 .903 Medicaid MEDICAID MEDICAI D [id number] Effective for all dates [address] [place] [address] Medicaid xxxxxxxxxxxx 1.2.840.235311.1.13.248.2 .7.3.529181.315 Unknown [id number] 2.16.840.1.978602.3.579.2 .443 Unknown [id number] 2.16.840.1.450703.3.579.2 .443 Unknown [id number] 2.16.840.1.929954.3.579.2 .443 Unknown [id number] 2.16.840.1.754697.3.579.2 .443 Unknown [id number] 2.840.1.719430.3.579.2 .443 Unknown [id number] .840.1.335573.3.579.2 .443 Unknown [id number] 2.840.1.354908.3.579.2 .443 Unknown [id number] .0.1.892337.3.579.2 .443 Unknown [id number] Unknown [id number] .0.1.324461.3.579.2 .462 Unknown [id number] .0.1.607090.3.579.2 .462 Unknown [id number] .0.1.191312.3.579.2 .462 Unknown [id number] .0.1.245070.3.579.2 .462 Unknown [id number] .0.1.196164.3.579.2 .462 Unknown [id number] 08.30.830.1.356236.3.579.2 .462 Unknown [id number] ..1.316084.3.579.2 .462 Unknown [id number] .1.448126.3.579.2 .462 Unknown [id number] 840.1.284733.3.579.2 .462 Unknown [id number] 840.1.397772.3.579.2 .462 Unknown [id number] .840.1.805618.3.579.2 .462 Unknown [id number] .840.1.964381.3.579.2 .462 Unknown [id number] 08.30.830.1.880705.3.579.2 .462 Unknown [id number] 2.16.840.1.726680.3.579.2 .462 Unknown [id number] 2.16.840.1.020247.3.579.2 .462 Unknown [id number] 2.16.840.1.872689.3.579.2 .462 Unknown [id number] 2.16.840.1.796375.3.579.2 .462 Unknown [id number] 2.16.840.1.733212.3.579.2 .462 Unknown [id number] 2.16.840.1.378700.3.579.2 .462 Unknown [id number] 2.16840.1.085936.3.579.2 .462 Unknown [id number] 2.16840.1.143528.3.579.2 .462 Unknown [id number] 2.840.1.190343.3.579.2 .462 Unknown [id number] 2.16840.1.801136.3.579.2 .462 Unknown [id number] 2.16.840.1.104684.3.579.2 .462 Unknown [id number] 2.16.840.1.743801.3.579.2 .462 Unknown [id number] 2.16.840.1.277157.3.579.2 .462 Unknown [id number] 2.16.840.1.367107.3.579.2 .462 Unknown [id number] 2.16.840.1.028695.3.579.2 .462 Unknown [id number] 2.16.840.1.809596.3.579.2 .462 Unknown [id number] 2.16.840.1.812997.3.579.2 .462 Unknown [id number] 2.16.840.1.006014.3.579.2 .462 Unknown [id number] 2.16.840.1.432234.3.579.2 .462 Unknown [id number] 2.16.840.1.999221.3.579.2 .462 Unknown [id number] 2.16.840.1.886948.3.579.2 .462 Unknown [id number] 2.16.840.1.601145.3.579.2 .462 Unknown [id number] 2.16.840.1.809140.3.579.2 .462 Unknown [id number] 2.16.840.1.302412.3.579.2 .462 Social History Date Type Detail Facility Start: 07-28-2019 End: 11-28-2024 Tobacco smoking status NHIS Never smoker [facility] Start: 07-28-2019 End: 01-23-2022 Alcohol intake Current drinker of alcohol (finding) [facility] Start: 04-22-2019 End: 05-16-2021 History SDOH Alcohol Frequency 1 [facility] Start: 07-28-2019 Alcohol Comment rare [facility] Start: 1965 Sex Assigned At Not on file [facility] Start: 08-21-2019 End: 05-01-2022 Alcohol intake Ex-drinker (finding) [facility] Start: 10-03-2021 End: 04-09-2022 Exposure to SARS-CoV-2 (event) Not sure [facility] Start: 12-01-2010 End: 12-29-2019 Tobacco use and exposure Never used [facility] Start: 1965 End: 01-22-2023 Sex Assigned At Fina Lemos. Work Phone: Alcohol intake Denies alcohol use [employer] Work Phone: Details of drug misu se behavior Denies Drug Use [employer] D[employer] Work Phone: Start: 02-06-2021 History SDOH Social Connections Phone 5 [facility] Start: 05-16-2021 History SDOH Social Connections Membership 2 [facility] Start: 02-06-2021 History SDOH Stress 3 [facility] Start: 04-30-2022 End: 10-06-2023 Tobacco smoking status NHIS Tobacco smoking consumption unknown [facility] Start: 08-10-2021 Never Smoker [place] Work Phone: Start: 08-10-2021 No [facility] [employer] Work Phone: Start: 09-01-2019 Beer;Wine;Liquor [place] Work Phone: Start: 1965 Sex Assigned At Female [facility] Start: 05-01-2022 End: 01-22-2023 History of Social function [facility] Start: 08-21-2019 Gender identity Identifies as female gender (finding) [facility] Start: 08-21-2019 Sexual orientation Heterosexual (finding) [facility] Start: 01-22-2023 End: 02-26-2024 Alcohol intake Current non-drinker of alcohol (finding) [facility] Adult Depression Screening Assessment 0 [facility] Start: 03-21-2012 Alcohol Comment seldom [facility] (I/We) worried wheth er (my/our) food would run out before (I/we) got money to buy more. Never true [facility] Has the [employer], or [employer] threatened to shut off services in your home in past 12Mo No [facility] Are you now , , , , never or living with a partner? [facility] How often to you hav e a drink containing alcohol? Never [facility] How hard is it for y ou to pay for the very basics like food, housing, medical care, and heating Somewhat hard [facility] Do you feel stress - tense, restless, nervous, or anxious, or unable to sleep at night because your mind is troubled all the time - these days [OSQ] To some extent [facility] (I/We) worried wheth er (my/our) food would run out before (I/we) got money to buy more. Sometimes true [facility] Start: 11-07-2017 Rare [facility] Start: 11-07-2017 None [facility] Start: 11-07-2017 - [facility] Start: 11-08-2017 Non-smoker [facility] Medical Equipment Procedure Code Equipment Code Equipment Origin al Text Equipment Identifier Dates Implant ([id number]) [id number] Start: 07-04-2015 End: 08-30-2023 Comment on above: Use one needle per d ose. 1 per day. Test blood sugar(s) 3 times daily. USE TO TEST BLOOD CALZADA GAR THREE TIMES A DAY Use 5 needles per do se. 5 per day for her insulin. by Does not appl y route. [id number] 1 each by Does n ot apply route 4 times daily. [id number] Start: 05-04-2019 1 each by Does n ot apply route 4 times daily. [id number] Start: 08-03-2019 Biomet Sport G15 0 Dynagen Trim Carpenter-D [id number] Start: 03-11-2018 Biomet Sport 029 2 [place] 4-Site Sg [id number] 1099867_[facility] Start: 09-02-2013 Gdt 4135 Dextrus [id number] Start: 09-02-2013 Gdt 4542 Easytra k 2 Is-1, 80 Cm 812039 [id number] Start: 09-02-2013 TEST BLOOD SUGAR 1 TO 3 TIMES A DAY [id number] Start: 05-18-2021 USE TO GIVE INSULIN 4 TIMES A DAY [id number] Start: 05-18-2021 1 each by Does n ot apply route 4 times daily. [id number] Start: 09-14-2021 Biomet Spo 0292 Endotak [place] 4-Site Sg [id number] Start: 09-02-2013 USE TO GIVE INSULIN 4 TIMES A DAY [id number] Start: 10-26-2021 1 each by Does n ot apply route 4 times daily. [id number] Start: 12-21-2021 Blood Sugar Diagnostic (Onetouch Ultra [...] 08-18-2018 Pen Needle, Diabetic (Comfort Ez Pen [place]) 32 gauge x 5/32 needle Start: 03-24-2018 End: 08-18-2018 USE TO TEST BLOO D SUGAR THREE TIMES A DAY [id number] Start: 03-05-2023 Use 5 needles pe r dose. 5 per day for her insulin. [id number] Start: 08-30-2023 Icd-N140 Energen Cdx-[id number] 014 [id number] Start: 09-03-2013 Blood Sugar Diagnostic [...] 05-29-2024 Pen Needle, Diabetic (Comfort Ez Pen Hudson) 32 gauge x 5/32 needle Start: 03-24-2018 End: 08-18-2018 Goals Date Patient Goal Desired Activity /State Personal health goal Functional Status Date Assessment Result Facility 11-26-2024 Functional status Chair [facility] Work Phone: 05-09-2021 Daily Living Activities (DLA-20) [facility] Status Date Assessment Result Facility 11-28-2024 Cognitive function Awake;Alert;A ppropriate;Lopez Díaz [facility] Work Phone: 11-26-2024 Cognitive function Voice/Name [facility] Work Phone: 11-20-2024 Cognitive function Level Of Cons ciousness Awake;Alert;Appropriate;Lopez [facility] Work Phone: 11-07-2024 Cognitive function Awake;Alert;A ppropriate;Lopez harrisons Arjun [facility] Work Phone: 05-02-2022 Cognitive function Alert [facility] Work Phone: 04-30-2022 Cognitive function Appropriate;Cooperativ e [place] Work Phone: 04-25-2022 Cognitive function Alert [facility] Work Phone: Clinical Notes 02-09-2016 to 11-28-2024 Note Date & Type Note Facility 11-28-2024 Discharge summary Note Date/Time November 28, 2024 12:40am [facility] Medical Records Department [address] [place] [address] Emergency Department Summary 11/27/24 MR#: [id number] Acct: [id number] Name: MICHELLE JULES Rep #:[id number] : 1965 59 From: Haider Garcia PCP: Dr. Lisseth Peñaloza MD Status:REG ER Location: ED HPI History of Present [...] Patient also admits to a mild headache. [facility] Medical History MRSA (methicillin resistant staph aureus) [...] Unknown Rx Lance 3 Plus Sensor device) 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,vascular surgery physician,cont #1 ea 10/15/24 Unknown Rx (FreeStyle Lance 3 [place]ristow) dulaglutide 1.5 mg/0.5 mL 1.5 mg (0.5 [...] IMPRESSION: No acute cardiopulmonary process. Reading Location: [facility] PA and lateral chest x-ray was obtained. There are 2 views. On my independent interpretation, lung barroso are clear. There is normal cardiac silhouette. Bony thorax is normal. There is no acute process noted. Radiologist also interpreted the x-ray and agrees. Treatment and Re-Evaluation :: Cathflo Activase was infused by nursing pump service supervisor. PICC line was able to be [...] u w/ snacks (DME) FreeStyle Lance 3 [place] [facility] See Rx Instructions .Route Qty: 1 0RF [...] bmp, cbc, and vanc trough. Fax to [phone]. Routine picc care per protocol. Entresto 24-26 [...] Care Provider] - 5-7 Days Print Language: Mosotho Disposition Disposition: Home, Self Care What to do if you have Problems For any increased pain, shortness of breath, bleeding, nausea or vomiting, chestpain, or any unexpected problems, contact your Primary Care Provider. Call [facility] ([phone]) or report to the closest Emergency Room. Call 911 if necessary. 11/28/24 0040 <Electronically signed by Haider Valdes DO> Cosigner Signature (if applicable): CC: Dr. Lisseth Peñaloza MD ~ Signed [facility] Work Phone: 1(624) 210-510705-16-2025 Radiology Diagnostic study [facility]05-15-2025 Discharge summary Author Denisse Guan [facility] Note Date/Time November 26, 2024 12:19 pm [facility] Medical Records Department [address] [place] [address] Instructions for Home/Discharge Instructions 11/26/24 1218 MR#: [id number] Acct: [id number] Name: MICHELLE JULES Rep #:[id number] : 1965 59 From: Denisse Guan [...] Karthik Tang; Clifton Alexander; Clifford Cody; Deon Mcclellan; Jeanie Hunt; Rajan De La Cruz; Scout Curry; Glenys Mcmahan; Pedro Luis Lal; Jamar Chi; Jesus Varela; Lara Durant; Sigrid Adkins; Camila Mclean; John,Guilherme; Dada Tidwell; Mario Keller; Flash Newton; Lida Falcon; Jhony Zhang; Varun Collier; Yusuf Field; Thomas Paulino; Jean Trujillo; Michel Haq; Haider Smith Instructions Patient Instructions: ED Bacteremia, Suspected (Adult) Discharge Orders/Prescriptions Prescriptions: New vancomycin 1.75 gram recon soln 1.75 g IV Q12H 39 Days Rx Instructions: stop date 01/02/25. Dx: MRSA bacteremia. Weekly bmp, cbc, and vanc trough. Fax to [phone]. Routine picc care per protocol. No Action [...] u w/ snacks (DME) FreeStyle Lance 3 [place]ristow Misc See Rx Instructions .Route Qty: 1 [...] MD; Dr. Jeanie Hunt MD; Dr. Deon Mcclellan DO; Dr. Rajan De La Cruz MD; Dr. Haider Smith DO; Dr. Scout Curry MD; Dr. PedroL uis Lal MD; Dr. Jamar Chi MD; Dr. [...] Field MD; Dr. Thomas Paulino MD; Dr. MD Dustin ~ [facility] Work Phone: 1(908) 145-414005-15-2025 [facility]05-14-2025 Progress note Author Haider Smith [facility] Note Date/Time November 25, 2024 3:01p [facility] Medical Records Department [address] [place] [address] Progress Note - Hospitalist 11/25/24 0804 MR#: [id number] Acct: [id number] Name: MICHELLE JULES Rep #:[id number] : 1965 59 From: Haider Smith DO PCP: Dr. Lisseth Peñaloza MD Status:ADM IN Location: [place] [address]- 1 Reason for Visit Reason for Visit: Diagnoses [...] % (Auto) 45.6 L, Lymph % (Auto) 37.4,Coal % (Auto) 12.1 H, Eos % (Auto) [...] 40%. KANDY negative. [facility]. Likely the cefepime can be [...] VTE prophylaxis: LMWH Disposition: to home with [facility] for IV abx on 11/26. Charges/Coding Visit Charges Inpatient E&M: 25564 Subs Hosp L1 11/25/24 1501 <Electronically signed by Haider Smith DO> Cosigner Signature (if applicable): CC: ~ Signed [facility] Work Phone: 1(564) 307-560805-14-2025 Progress [facility] Note Date/Time November 25, 2024 1:16p m [facility] Medical Records Department [address] [place] [address] Progress Note - Infect Disease 11/25/24 1314 MR#: [id number] Acct: [id number] Name: MICHELLE JULES Rep #:[id number] : 1965 59 From: Michel olivarez MD PCP: Dr. Lisseth Peñaloza MD Status:ADM IN Location: [place] [address] Physical Exam Narrative No fever, no n/v/d. [...] consider longer term suppressive po abx. D/w shoe caser Will follow (2) Sepsis: (3) Low back pain: 11/25/24 1316 <Electronically signed by Michel Haq MD> Cosigner Signature (if applicable): CC: ~ Signed [facility] Work Phone: 1(797) 739-334205-14-2025 Consult note Author Haider Case [facility] Note Date/Time November 25, 2024 6:33a m [facility] Medical Records Department [address] [place] [address] Pharmacokinetic/Renal -Consult 11/25/24 0631 MR#: [id number] Acct: [id number] Name: MICHELLE JULES Rep #:[id number] : 1965 59 From: Haider Case PCP: Dr. Lisseth Peñaloza MD Status:ADM IN Y Location: [place] [address] Consult Antibiotic Management Pharmacy has been consulted [...] signed by Haider burrell> Date _ Haider Olmos Case Etta Signature (if applicable): Date CC: ~ Signed [facility] Work Phone: 1(805) 153-701905-13-2025 Progress note Author Haider Smith [facility] Note Date/Time November 24, 2024 11:39 am [facility] Medical Records Department [address] [place] [address] Progress Note - Hospitalist 11/24/24 0736 MR#: [id number] Acct: [id number] Name: MICHELLE JULES Rep #:[id number] : 1965 59 From: Haider Smith DO PCP: Dr. Lisseth Peñaloza MD Status:ADM IN Location: [place] [address] Reason for Visit Reason for Visit: Diagnoses [...] (Auto) 46.3 L, Lymph % (Auto) 38.3, Coal % (Auto) 11.0 H, Eos % (Auto) [...] Physician: Lisseth Peñaloza Performed By: Cassy Becker, JEANINE, RVT Rhythm Strip Rhythm Strip: A sensed [...] prophylaxis: LMWH Charges/Coding Visit Charges Inpatient E&M: 91841 Subs Hosp L2 11/24/24 1139 <Electronically signed by Haider Smith DO> Cosigner Signature (if applicable): CC: ~ Signed [facility] Work Phone: 1(877) 209-959705-13-2025 Progress note Author Michel Haq [facility] Note Date/Time November 24, 2024 10:25 am [facility] Medical Records Department [address] [place] [address] Progress Note - Infect Disease 11/24/24 1022 MR#: [id number] Acct: [id number] Name: MICHELLE JULES Rep #:[id number] : 1965 59 From: Michel olivarez MD PCP: Dr. Lisseth Peñaloza MD Status:ADM IN Location: [place] [address] Physical Exam Narrative Feeling better, no fever, [...] Cosigner Signature (if applicable): CC: ~ Signed [facility] Work Phone: 1(523) 413-702805-13-2025 Progress note Author Kasandra Hinkle [facility] Note Date/Time November 24, 2024 7:43a m [facility] Medical Records Department [address] [place] [address] Progress Note - Cardiology 11/24/24 0735 MR#: [id number] Acct: [id number] Name: MICHELLE JULES Rep #:[id number] 1 : 1965 59 From: Kasandra Hinkle MD PCP: Dr. Lisseth Peñaloza MD Status:ADM IN Location: [place] [address] Subjective Subjective Patient is resting comfortably in [...] (Auto) 46.3 L, Lymph % (Auto) 38.3, Coal % (Auto) 11.0 H, Eos % (Auto) [...] (Auto) 46.3 L, Lymph % (Auto) 38.3, Coal % (Auto) 11.0 H, Eos % (Auto) 3.0, Baso% (Auto) 0.9, Absolute Neuts (auto) 2.0, Nucleated RBC % 0, Sodium 140, Potassium 3.9, Chloride 107, Carbon Dioxide 22.7, Anion Gap 10, BUN 6, Creatinine 0.62 L, Est GFR (MDRD) Non-Af 103, BUN/Creatinine Ratio 9.7 L, Gkjdeps73, Calcium 8.9 Rhythm: EKG: ECHO: Stress Test: [...] Physician: Lisseth Peñaloza Performed By: Cassy Becker, JEANINE, RVT Physical Exam Const alert and oriented [...] ventricular paced. She is followed by the [facility]. She has an [...] cardiac appointments. Charges/Coding Visit Charges Inpatient E&M: 36491 Subs Hosp L2 11/24/24 0743 <Electronically signed by Kasandra Hinkle MD> Cosigner Signature (if applicable): CC: ~ Signed [facility] Work Phone: [phone] 490-607105-12-2025 Consult note Author Hang Powers [facility] Note Date/Time November 23, 2024 6:32p m [facility] Medical Records Department [address] [place] [address] Pharmacokinetic/Renal -Consult 11/23/24 1831 MR#: [id number] Acct: [id number] Name: MICHELLE JULES Rep #:[id number] 9 : 1965 59 From: Hang Sanders [facility] PCP: Dr. Lisseth Peñaloza MD Status:ADM IN Y Location: [place] [address] Consult Antibiotic Management Pharmacy has been consulted [...] LEVEL RECEIVED Current Vancomycin Dose: 2000mg q12h (,18) Number of Doses Received: x3 of current [...] 11/23/24 1832 <Electronically signed by Hang Johnson [facility]> Date _ Hang Poewrs [facility] Cosigner Signature (if applicable): Date CC: ~ Signed [facility] Work Phone: [phone]) 922-348705-12-2025 Consult note Author Michel Haq [facility] Note Date/Time November 23, 2024 1:16p [facility] Medical Records Department [address] [place] [address] Consultation - Infectious Dx 11/23/24 1311 MR#: [id number] Acct: [id number] Name: MICHELLE JULES Rep #:[id number] 6 : 1965 59 From: Michel olivarez MD PCP: Dr. Lisseth Peñaloza MD Status:ADM IN Location: [place] [id number]- 1 Assessment & Plan Assessment/Plan (1) MRSA [...] performed and neg except as noted above. [facility] Medical History MRSA (methicillin resistant staph aureus) [...] ea 10/15/24 Unknown Rx (FreeStyle Lance 3 Bristow) 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 sensor (FreeStyle #2 ea 10/15/24 Unknown [...] Neut % (Auto) 65.1, Lymph % (Auto) 22.9,Coal % (Auto) 8.8, Eos % (Auto) 2.4, [...] applicable): CC: Dr. Lisseth Peñaloza MD~ Signed [facility] Work Phone: [phone] Progress note Author Kasandra Hinkle [facility] Note Date/Time November 23, 2024 12:53 pm [facility] Medical Records Department [address] [facility] [place] [address] Progress Note - Cardiology 11/23/24 0746 MR#: [id number] Acct: [id number] Name: MICHELLE JULES Rep #:[id number] 1 : 1965 59 From: Kasandra Hinkle MD PCP: Dr. Lisseth Peñaloza MD Status:ADM IN Location: [place] [address] Subjective Subjective Patient resting comfortable in the [...] / 1779.00 100 / 100 Output Total 1599 / 2057 458 / 458 Balance 899.30 / 691.30 [...] Neut % (Auto) 65.1, Lymph % (Auto) 22.9,Coal % (Auto) 8.8, Eos % (Auto) 2.4, [...] % (Auto) 65.1, Lymph % (Auto) 22.9, Coal % (Auto) 8.8, Eos % (Auto) 2.4, [...] had poor windows shows an EF of qdspgwrdkmeow66%. The patient has TENTER FEEDER-D device in place. The patient is on [...] of internal cardiac defibrillator: PLAN: Patient has TENTER FEEDER-D device in place. Her rate is 62 atrial sinus rate whichis tracked by the BiV pacer. PLAN: Plan 1. Continue current antibiotic therapy. No obvious site of intracardiac infection. Charges/Coding Visit Charges Inpatient E&M: 61732 Subs Hosp L2 11/23/24 1253 <Electronically signed by Kasandra Hinkle MD> Cosigner Signature (if applicable): CC: ~ Signed [facility] Work Phone: [phone] Progress note Author Haider Smith [facility] Note Date/Time November 23, 2024 12:17 pm [facility] Medical Records Department [address] [place] [address] Progress Note - Hospitalist 11/23/24 0726 MR#: [id number] Acct: [id number] Name: MICHELLE JULES Rep #:[id number] 2 : 1965 59 From: Haider Smith DO PCP: Dr. Lisseth Peñaloza MD Status:ADM IN Location: [place] [id number]- 1 Reason for Visit Reason for Visit: Diagnoses [...] Neut % (Auto) 65.1, Lymph % (Auto) 22.9,Coal % (Auto) 8.8, Eos % (Auto) 2.4, [...] prophylaxis: LMWH Charges/Coding Visit Charges Inpatient E&M: 05976 Subs Hosp L2 11/23/24 1217 <Electronically signed by Haider Smith DO> Cosigner Signature (if applicable): CC: ~ Signed [facility] Work Phone: [phone]) [phone] Progress note Author Haider [facility] Note Date/Time November 22, 2024 1:36p m [facility] Medical Records Department [address] [place] [address] Progress Note - Hospitalist 11/22/24 0801 MR#: [id number] Acct: [id number] Name: MICHELLE JULES Rep #:[id number] 1 : 1965 59 From: Haider Smith DO PCP: Dr. Lisseht Peñaloza MD Status:ADM IN Location: [place] [address] Reason for Visit Reason for Visit: Diagnoses [...] % (Auto) 67.4, Lymph % (Auto) 21.6, Coal % (Auto) 9.1, Eos % (Auto) 0.6, [...] of ICU. Charges/Coding Visit Charges Inpatient E&M: 99167 Subs Hosp L2 11/22/24 1336 <Electronically signed by Haider Smith DO> Cosigner Signature (if applicable): CC: ~ Signed [facility] Work Phone: [phone] Consult note Author Radha Dumont [facility] Note Date/Time November 22, 2024 12:43 pm [facility] Medical Records Department [address] [place] [address] Consultation - Cardiology 11/22/24 1236 MR#: [id number] Acct: [id number] Name: MICHELLE JULES Rep #:[id number] 9 : 1965 59 From: Radha Dumont MD PCP: Dr. Lisseth Peñaloza MD Status:ADM IN Location: [place] [id number]- Assessment & Plan Assessment/Plan (1) MRSA bacteremia: PLAN: Patient blood culture is reported as positive for MRSA. No source identified so far. She has a TENTER FEEDER-D device. I would recommend checking a KANDY [...] history significant for nonischemic cardiomyopathy status post TENTER FEEDER?D, diabetes mellitus, morbid obesity and hypertension. The [...] Denies orthopnea or PND. No ankle edema. [facility] Medical History Cardiomyopathy, ischemic Vitamin D deficiency [...] ea 10/15/24 Unknown Rx (FreeStyle Lance 3 Bristow) 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 sensor (FreeStyle #2 ea 10/15/24 Unknown [...] % (Auto) 67.4, Lymph % (Auto) 21.6, Coal % (Auto) 9.1, Eos % (Auto) 0.6, [...] % (Auto) 67.4, Lymph % (Auto) 21.6, Coal % (Auto) 9.1, Eos % (Auto) 0.6, [...] Referring Physician: Lisseth Peñaloza Performed By: Nano Leung, JEANINE 11/22/24 1243 <Electronically signed by Radha Dumont MD> Cosigner Signature (if applicable): CC: Dr. Lisseth Peñaloza MD~ Signed [facility] Work Phone: [phone] Progress note Author Pedro [facility] Note Date/Time November 22, 2024 9:36a m [facility] Medical Records Department [address] [place] [address] Progress Note - Retail Presentation Specialist 11/22/24 0932 MR#: [id number] Acct: [id number] Name: MICHELLE JULES Rep #:[id number] 0 : 1965 59 From: Pedro Luis [...] 890 / 890 Output Total 700 / 2058 900 / 2058 458 / 458 Balance [...] 11/20/24 19:30 11/21/24 21:02 IV 0 mls/hr .[id number] PRN Infusion Saline Flush Sodium Chloride 250 mls @ 15 mls/hr 11/20/24 19:30 IV .[id number] PRN Additional IVPB Infusion Norepinephrine Bitartrate 8 mg 250 mls @ 9.375 mls/hr 11/20/24 20:20 11/23/2503:28 / Sodium Chloride CONT INF Not Given .[id number] SARAH Protocol 5 MCG/MIN Vancomycin HCl 2,000 [...] PRN Administration NAUSEA/VOMITING Oxycodone HCl 5 mg 05/09/25 19:29 11/21/24 20:15 Oxycodone 5 Mg Tablet PO 5 mg Q4H PRN PRN Administration Pain Score 4-10 Pantoprazole Sodium 40 mg 11/20/24 22:00 11/22/24 09:26 Pantoprazole Sodium 40 Mg Tablet PO 40 mg BID SARAH Administration Pramipexole Dihydrochloride 0.25 mg 11/20/24 22:00 11/21/24 21:23 Pramipexole Di-Hcl 0.25 Mg Tablet PO 0.25 mg QHS SARAH Administration Senna/Docusate Sodium 2 tablet 11/20/24 19:29 Senna/Docusate Sodium 1 Tablet PO BID PRN PRN Constipation Sodium Chloride 10 - 40 ml 11/20/24 19:30 11/22/24 09:13 0.9% Saline Lock 10 Ml Syringe IV 10 ml UD PRN Administration SALINE FLUSH Vancomycin Protocol 1 lab 11/23/24 16:30 Vancomycin Trough/Random Due [facility] 11/23/24 18:30 DAILY [facility] Lab / Micro Data 11/22/24 04:40 [...] % (Auto) 67.4, Lymph % (Auto) 21.6, Coal % (Auto) 9.1, Eos % (Auto) 0.6, [...] Physician: Lisseth Peñaloza Performed By: Nano Leung MICHELLE Assessment and Plan . Assessment and plan: [...] Cosigner Signature (if applicable): CC: ~ Signed [facility] Work Phone: [phone] Consult note Author Haider Case [facility] Note Date/Time November 22, 2024 5:41a m [facility] Medical Records Department [address] [place] [address] Pharmacokinetic/Renal -Consult 11/22/24 0539 MR#: [id number] Acct: [id number] Name: MICHELLE JULES Rep #:[id number] 3 : 1965 59 From: Haider Case [...] Signature (if applicable): Date CC: ~ Signed [facility] Work Phone: [phone] Progress note Author Pedro Luis Lal [facility] Note Date/Time November 21, 2024 11:46 am [facility] Medical Records Department [address] [place] [address] Progress Note - Retail Presentation Specialist 11/21/24 1141 MR#: [id number] Acct: [id number] Name: MICHELLE JULES Rep #:[id number] 3 : 1965 59 From: Pedro Luis [...] 11/20/24 19:30 11/21/24 05:46 IV 15 mls/hr .[id number] PRN Administration Saline Flush Sodium Chloride 250 mls @ 15 mls/hr 11/20/24 19:30 IV .[id number] PRN Additional IVPB Infusion Norepinephrine Bitartrate 8 mg 250 mls @ 9.375 mls/hr 11/20/24 20:20 11/21/2506:45 / Sodium Chloride CONT INF 0 mcg/min .[id number] SARAH 0 mls/hr Titration Protocol 5 MCG/MIN [...] Lidocaine 5% Patch TOPICAL 1 patch DAILY [facility] Administration Protocol Loratadine 10 mg 11/21/24 [...] 0.25 Mg Tablet PO 0.25 mg QHS [facility] Administration Senna/Docusate Sodium 2 tablet 11/20/24 19:29 Senna/Docusate Sodium 1 Tablet PO BID PRN PRN Constipation Sodium Chloride 10 - 40 ml 11/20/24 19:30 11/21/24 04:24 0.9% Saline Lock 10 Ml Syringe IV 10 ml UD PRN Administration SALINE FLUSH Vancomycin Protocol 1 lab 11/22/24 03:00 Vancomycin Trough/Random Due [facility] 11/22/24 05:00 DAILY [facility] Lab / Micro Data 11/21/24 04:01 11/21/24 04:01 Labs: Laboratory Results - last 24 hr 11/20/24 14:33: WBC 9.6, RBC 4.29, Hgb 12.6, Hct 38.8, MCV 90.4, MCH 29.4, MCHC 32.5, RDW Std Deviation 46.5 H, RDW Coeff of Tatum 14.2, Plt Count 148 L, MPV 10.4, Immature Gran % (Auto) 0.700, Neut % (Auto) 89.4 H, Lymph % (Auto) 5.2 L, Coal % (Auto) 4.1, Eos % (Auto) 0.4, [...] Urine ClarityClear, Urine pH 6.0, Ur Specific [place] 1.015, Urine Protein Negative, Urine Glucose (UA) [...] 86.6 H, Lymph % (Auto) 7.5 L, Coal % (Auto) 4.7, Eos % (Auto) 0.1, [...] mucoperiosteal thickening, left maxillary sinus. Reading Location: [facility] Lumbar Spine CT 11/20/24 14:29 IMPRESSION: No acute osseous abnormalities involving the lumbar spine. Severe degenerative disc disease at L5-S1. Mild spondylosis. Reading Location: [facility] Chest X-Ray 11/20/24 15:10 IMPRESSION: No Acute Findings. Reading Location: [facility] Abdomen/Pelvis CT 11/20/24 16:54 IMPRESSION: No acute intra-abdominal process. Trace pericardial effusion. Reading Location: [facility] Assessment and Plan . Assessment and plan: [...] as just came off pressors. 7. PX: lovenox Pedro Luis Lal MD Critical Care Time: 50 minutes [...] Cosigner Signature (if applicable): CC: ~ Signed [facility] Work Phone: [phone]) [phone] Progress note Author Haider Smith [facility] Note Date/Time November 21, 2024 11:00 am [facility] Medical Records Department [address] [place] [address] Progress Note - Hospitalist 11/21/24 0715 MR#: [id number] Acct: [id number] Name: MICHELLE JULES Rep #:[id number] 1 : 1965 59 From: Haider Smith [...] 89.4 H, Lymph % (Auto) 5.2 L, Coal % (Auto) 4.1, Eos % (Auto) 0.4, [...] Urine ClarityClear, Urine pH 6.0, Ur Specific [place] 1.015, Urine Protein Negative, Urine Glucose (UA) [...] 86.6 H, Lymph % (Auto) 7.5 L, Coal % (Auto) 4.7, Eos % (Auto) 0.1, [...] mucoperiosteal thickening, left maxillary sinus. Reading Location: [facility] Lumbar Spine CT 11/20/24 14:29 IMPRESSION: No acute osseous abnormalities involving the lumbar spine. Severe degenerative disc disease at L5-S1. Mild spondylosis. Reading Location: [facility] Chest X-Ray 11/20/24 15:10 IMPRESSION: No Acute Findings. Reading Location: [facility] Abdomen/Pelvis CT 11/20/24 16:54 IMPRESSION: No acute intra-abdominal process. Trace pericardial effusion. Reading Location: [facility] Physical Exam Narrative POCUS: indication shock. IVC [...] prophylaxis: LMWH Charges/Coding Visit Charges Inpatient E&M: 12812 Subs Hosp L3 11/21/24 1100 <Electronically signed by Haider Smith DO> Cosigner Signature (if applicable): CC: ~ Signed [facility] Work Phone: [phone] 541-662905-10-2025 Discharge summary Author Javy Saul [facility] Note Date/Time November 20, 2024 11:08p m [facility] Medical Records Department [address] [place] [address] Emergency Department Summary 11/20/24 MR#: [id number] Acct: [id number] Name: MICHELLE JULES Rep #:[id number] 9 : 1965 59 From: Javy Garcia [...] ischemic cardiomyopathy and has an ICD ([employer] TENTER FEEDER-D IS-1/DF4/IS-1). Reported last ejection fraction of 40% in 2023. This history was extremely difficult to obtain in that the patient often answersI do not know and her answers often conflicts each other. To the best my ability this is her history and I repeated it back to her and she states that that is correct. [facility] Medical History Cardiomyopathy, ischemic Vitamin D deficiency [...] ea 10/15/24 Unknown Rx (FreeStyle Lance 3 Bristow) 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 sensor (FreeStyle #2 ea 10/15/24 Unknown Rx Lance 3 Plus Sensor device) dulaglutide 1.5 mg/0.5 mL 1.5 mg (0.5 mL) subcut QWEEK #2 mL 10/15/24 [facility] insulin lispro 100 unit/mL 30 unit subcut [...] 89.4 H Lymph % (Auto) 5.2 L Coal % (Auto) 4.1 Eos % (Auto) 0.4 [...] Clarity Clear Urine pH 6.0 Ur Specific [place] 1.015 Urine Protein Negative Urine Glucose (UA) [...] mucoperiosteal thickening, left maxillary sinus. [facility] 11/20/24 14:29 IMPRESSION: No acute osseous abnormalities involving the lumbar spine. Severe degenerative disc disease at L5-S1. Mild spondylosis. Reading Location: [facility] Chest X-Ray 11/20/24 15:10 IMPRESSION: No Acute Findings. Reading Location: [facility] EKG Initial EKG: Attestation: I personally reviewed and interpreted this EKG as follows: Comments: AV paced at 120 bpm Prior EKG tracings: available for review Prior: Unchanged Discharge Plan Dx/Rx/DC Orders Clinical Impression: Acute febrile illness, Low back pain, Cardiomyopathy, ischemic, Sepsis Disposition Disposition: [facility] What to do if you have Problems For any increased pain, shortness of breath, bleeding, nausea or vomiting, chestpain, or any unexpected problems, contact your Primary Care Provider. Call [facility] ([phone]) or report to the closest Emergency Room. Call 911 if necessary. 11/20/244 <Electronically signed by Javy Saul DO> Cosigner Signature (if applicable): CC: Dr. Lisseth Peñaloza MD ~ Signed [facility] Work Phone: [phone]) [phone] Consult note Author Jesus Varela [facility] Note Date/Time November 20, 2024 9:49pm [facility] Medical Records Department [address] [facility] [place] [address] Consultation - Retail Presentation Specialist 11/20/24 2141 MR#: [id number] Acct: [id number] Name: MICHELLE JULES Rep #:[id number] 1 : 1965 59 From: Jesus Varela [...] LA remains elevated at a level ~2.4. [facility] Medical History Cardiomyopathy, ischemic Vitamin D deficiency [...] ea 10/15/24 Unknown Rx (FreeStyle Lance 3 [place]ristow) 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 sensor (FreeStyle #2 ea 10/15/24 Unknown Rx Lance 3 Plus Sensor device) dulaglutide 1.5 mg/0.5 mL 1.5 mg (0.5 mL) subcut QWEEK #2 mL 10/15/24 Unknown Rx [facility] insulin lispro 100 unit/mL 30 unit subcut [...] 101/65 11/20/24 21:00 Blood Pressure Mean 77 11/20/24 21:00 Blood Pressure Source Monitor 11/20/24 20:45 [...] Atorvastatin Calcium 10 Mg Tablet PO DAILY [facility] Carvedilol 6.25 mg 11/20/24 22:00 Carvedilol 6.25 Mg Tablet PO BID [facility] Protocol Duloxetine HCl 60 mg 11/20/24 22:00 Duloxetine Hcl 60 Mg Capsule PO BID [facility] Enoxaparin Sodium 40 mg 11/20/24 22:00 Enoxaparin 40 Mg/0.4 Ml Syringe SC BID [facility] Gabapentin 300 mg 11/21/24 10:00 Gabapentin 300 Mg Capsule PO DAILY [facility] Glucagon 1 mg 11/20/24 19:29 Glucagon [...] 11/20/24 19:30 11/20/24 20:43 IV 15 mls/hr .[id number] PRN Administration Saline Flush Sodium Chloride 250 mls @ 15 mls/hr 11/20/24 19:30 IV .[id number] PRN Additional IVPB Infusion Norepinephrine Bitartrate 8 mg 250 mls @ 9.375 mls/hr 11/20/24 20:20 / Sodium Chloride CONT INF .[id number] [facility] Protocol 5 MCG/MIN Vancomycin HCl 1,750 mg/ 535 mls @ 250 mls/hr 11/21/24 04:30 Sodium Chloride IV Q12H [facility] Insulin Glargine 20 unit 11/20/24 22:00 Insulin Glargine-Yfgn 100 Unit/Ml Pen SC BID [facility] Insulin Human Lispro 0 unit 11/20/24 22:00 11/20/24 20:43 Insulin Lispro 100 Unit/Ml Insuln.Pen SC Not Given ACHS [facility] Protocol Iopamidol 0 ml 11/20/24 17:00 11/20/24 20:04 Contrast Allergy Safety Check IV Not Given X1 [facility] Lidocaine 1 patch 11/21/24 10:00 Lidocaine 5% Patch TOPICAL DAILY [facility] Protocol Loratadine 10 mg 11/21/24 10:00 Loratadine 10 Mg Tablet PO DAILY [facility] Melatonin 10 mg 11/20/24 19:29 Melatonin [...] Pantoprazole Sodium 40 Mg Tablet PO BID [facility] Pramipexole Dihydrochloride 0.25 mg 11/20/24 22:00 Pramipexole Di-Hcl 0.25 Mg Tablet PO QHS [facility] Sacubitril/Valsartan 1 each 11/20/24 22:00 Sacubitril/Valsartan 24/26 Mg Tablet PO BID [facility] Senna/Docusate Sodium 2 tablet 11/20/24 19:29 Senna/Docusate Sodium 1 Tablet PO BID PRN PRN Constipation Sodium Chloride 10 - 40 ml 11/20/24 19:30 11/20/24 20:42 0.9% Saline Lock 10 Ml Syringe IV 10 ml UD PRN Administration SALINE FLUSH Vancomycin Protocol 1 lab 11/22/24 03:00 Vancomycin Trough/Random Due 11/22/24 05:00 DAILY [facility] Physical Exam Const alert, oriented x3 [...] 89.4 H, Lymph % (Auto) 5.2 L, Coal % (Auto) 4.1, Eos % (Auto) 0.4, [...] Urine ClarityClear, Urine pH 6.0, Ur Specific [place] 1.015, Urine Protein Negative, Urine Glucose (UA) [...] mucoperiosteal thickening, left maxillary sinus. Reading Location: [facility] Lumbar Spine CT 11/20/24 14:29 IMPRESSION: No acute osseous abnormalities involving the lumbar spine. Severe degenerative disc disease at L5-S1. Mild spondylosis. Reading Location: [facility] Chest X-Ray 11/20/24 15:10 IMPRESSION: No Acute Findings. Reading Location: [facility] Abdomen/Pelvis CT 11/20/24 16:54 IMPRESSION: No acute intra-abdominal process. Trace pericardial effusion. Reading Location: [id number] Reviewed personally as well Assessment and Plan [...] of this encounter was done via Telemedicine 11/20/242148 <Electronically signed by Jesus Varela MD> Cosigner Signature (if applicable): CC: Dr. Lisseth Peñaloza MD~ Signed [facility] Work Phone: 1(872) 266-203205-09-2025 History and physical note Author Mariah Brewer [facility] Note Date/Time November 20, 2024 7:16pm [facility] Medical Records Department [address] [place] [address] H&P Exam - Hospitalist 11/20/24 1700 MR#: [id number] Acct: [id number] Name: MICHELLE JULES Rep #:[id number] 9 : 1965 59 From: Mariah Brewer MD PCP: Dr. Lisseth Peñaloza MD Status:ADM IN Location: ICU ICU01-1 HPI - General General Date of Admission: 11/20/24 Date of Service: 11/20/24 Chief Complaint: Back pain, fever HPI Narrative MICHELLE JULES, is a 59-year-old female with history of ischemic cardiomyopathy with pacer defibrillator placement, diabetes, and GERD who presented to [facility] ED 11/20/2024 due to complaints of back [...] intra-abdominal process, did note distended urinary bladder [facility] Medical History Cardiomyopathy, ischemic Vitamin D deficiency [...] ea 10/15/24 Unknown Rx (FreeStyle Lance 3 [place]) 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 sensor (FreeStyle #2 ea 10/15/24 Unknown [...] 89.4 H, Lymph % (Auto) 5.2 L, Coal % (Auto) 4.1, Eos % (Auto) 0.4, [...] Clarity Clear, Urine pH 6.0, Ur Specific [place] 1.015, Urine Protein Negative, Urine Glucose (UA) [...] mucoperiosteal thickening, left maxillary sinus. Reading Location: [facility] Lumbar Spine CT 11/20/24 14:29 IMPRESSION: No acute osseous abnormalities involving the lumbar spine. Severe degenerative disc disease at L5-S1. Mild spondylosis. Reading Location: [facility] Chest X-Ray 11/20/24 15:10 IMPRESSION: No Acute Findings. Reading Location: [facility] Abdomen/Pelvis CT 11/20/24 16:54 IMPRESSION: No acute intra-abdominal process. Trace pericardial effusion. Reading Location: [id number] Assessment & Plan Assessment/Plan (1) Sepsis: PLAN: [...] documentation, 62Minutes Charges/Coding Visit Charges Inpatient E&M: 68781 Init Hosp L3 11/20/241902 <Electronically signed by [...] MD; Dr. Mariah Brewer MD ~* Signed [facility] Work Phone: 1([phone]) 768-729605-09-2025 Progress note Author Mariah Brewer [facility] Note Date/Time November 20, 2024 7:14pm [facility] Medical Records Department [address] [place] [address] Progress Note - Hospitalist 11/20/24 1806 MR#: [id number] Acct: [id number] Name: MICHELLE JULES Rep #:[id number] 4 : 1965 59 From: Mariah Brewer [...] Cosigner Signature (if applicable): cc: ~* Signed [facility] Work Phone: 1(454) 697-621105-09-2025 Radiology Diagnostic study note [facility] Imaging Services [address] [place] [address] Abdomen/Pelvis W IV Cont ONLY MR#: [id number] Acct: [id number] Name: MICHELLE JULES Rep #: [id number] 3 : 1965 F 59 From: Carmen Denton MD PCP: Dr. Lisseth Peñaloza MD Status: ADM IN Study:Abdomen/Pelvis W IV Cont ONLY Date of E xam: 11/20/24 Exam# [id number] Ordering Dr: Carrie Saul DO PROCEDURE: ABDOMEN/PELVIS W IV CONT [...] intra-abdominal process. Trace pericardial effusion. Reading Location: [facility] CC: Dr. Lisseth Peñaloza MD; Dr. Javy Saul DO ~ Fishing Game Warden: Signed [facility]05-09-2025 Radiology Diagnostic study note [facility] Imaging Services [address] [place], [place] [id number] Spine Lumbar without Contrast MR#: [id number] Acct: [id number] Name: MICHELLE JULES Rep #: [id number] : 1965 F 59 From: Vidhya Hughes MD PCP: Dr. Lisseth Peñaloza MD Status: REG ER Study:Spine Lumbar without Contrast Date of E xam: 11/20/24 Exam# [id number] Ordering Dr: Carrie Saul DO PROCEDURE: SPINE LUMBAR WITHOUT CONTRAST [...] Peñaloza MD; Dr. Javy Saul DO ~ Fishing Game Warden: Signed [facility]05-09-2025 Radiology Diagnostic study note [facility] Imaging Services [address] [place] [address] Brain/Head without Contrast MR#: [id number] Acct: [id number] Name: MICHELLE JULES Rep #: [id number] : 1965 F 59 From: Vidhya Hughes MD PCP: Dr. Lisseth Peñaloza MD Status: REG ER Study:Brain/Head without Contrast Date of Exa m: 11/20/24 Exam# [id number] Ordering Dr: Carrie Saul DO PROCEDURE: BRAIN/HEAD WITHOUT CONTRAST 11/20/2024 [...] Peñaloza MD; Dr. Javy Saul DO ~ Fishing Game Warden: Signed [facility]05-09-2025 Radiology Diagnostic study note [facility] Imaging Services [address] [place] [address] Chest 1 View (Portable) MR#: [id number] Acct: [id number] Name: MICHELLE JULES Rep #: [id number] : 1965 F 59 From: Vidhya Hughes MD PCP: Dr. Lisseth Peñaloza MD Status: REG ER Study:Chest 1 View (Portable) Date of Exam: 11/20/24 Exam# [id number] Ordering Dr: Carrie Saul DO PROCEDURE: CHEST 1 VIEW (PORTABLE) [...] Peñaloza MD; Dr. Javy Saul DO ~ Fishing Game Warden: Signed [facility]02-24-2025 Evaluation note* Diagnosis Onset Date Resolution Status [...] Nonischemic cardiomyopathy inactive November 20, 2024 6:37pm [facility] Work Phone: 1(108) 111-607602-24-2025 Evaluation note* Diagnosis Onset Date Resolution Status [...] October 19, 2024 10:11am HTN (hypertension) chronic Alison 7th, 2025 10:11am Type 2 diabetes mellitus with diabetic [...] MRSA bacteremia acute December 09, 2024 11:01am [facility] Work Phone: 1(859) 848-346802-24-2025 Evaluation note* Diagnosis Onset Date Resolution Status [...] chronic October 15, 2024 10:04am Neuropathy chronic Alison 3rd, 202 5 10:04am Obesity chronic October 15 10:04am Type [...] neuropathy, unspecified chronic December 10, 2024 10:21am [facility] Work Phone: 1(115) 902-162801-22-2025 Evaluation note* Diagnosis Onset Date Resolution Status Admit Date Anxiety acute August 05, 2024 2:11pm Cardiomyopathy, ischemic acute August 05, 2024 2:11pm GERD (gastroesophageal reflux disease) acute August 05 2:11pm RLS (restless legs syndrome) acute August 05 2:11pm Vitamin D deficiency acute Rishi springy 2024 2:11pm HTN (hypertension) chronic Staruar y 2024 2:11pm Type 2 diabetes mellitus with diabetic neuropathy, unspecified chronic August 05 2:11pm PAXTON (obstructive sleep apnea) noneactive August 05 2:11pm Encounter for screening for malignant neoplasm of colon noneactive August 05 2:11pm Immunization due noneactive August 05, 2024 2:11pm Establishing care with new doctor, encounter for noneactive Julandrewr y 2024 2:11pm Screening for malignant neoplasm of cervix noneactive August 05, 2024 2:11pm Screening for breast cancer noneactive August 05 2:11pm Anxiety acute September 07, 2024 11:11am Cardiomyopathy, ischemic acute September 07, 2024 11:11am GERD (gastroesophageal reflux disease) acute September 07, 2 025 11:11am RLS (restless legs syndrome) acute [...] 20 4:25pm Sepsis acute November 20, 2024 4:25pm [facility] Work Phone: 1(292) 508-656101-22-2025 Evaluation note* Diagnosis Onset Date Resolution Status Admit Date Anxiety acute August 05, 2024 2:11pm Cardiomyopathy, ischemic acute August 05, 2024 2:11pm GERD (gastroesophageal reflux disease) acute August 05 2:11pm RLS (restless legs syndrome) acute August 05 2:11pm Vitamin D deficiency acute Rishi helena2024 2:11pm HTN (hypertension) chronic y 2024 2:11pm [...] GERD (gastroesophageal reflux disease) acute September 07, 2 025 11:11am RLS (restless legs syndrome) acute September 07 025 11:11am Vitamin D deficiency acute ua2024 11:11am HTN (hypertension) chronic ry 2024 11:11am Type 2 diabetes mellitus with diabetic neuropathy, unspecified chronic September 07 11:11am PAXTON (obstructive sleep apnea) noneactive September [...] 6:37pm Shock acute November 20, 2024 6:37pm [facility] Work Phone: 1(431) 197-141610-25-2024 NoteHNO ID: [id number] Author: JEANIE MURPHY RN Service: ? Author [...] CFM patient. Discharged form Care Coordination Jeanie Murphy, [facility]10-25-2024 History of Present illness Narrative* Jeanie [...] Coordination Jeanie Murphy RN documented [facility]24 NotePatient Outreach (AGACM) MICHELLE JULES ([id number]) 1965 F Date Time Provider Department 05/08/24 [...] LPN - Fully Assessed Reason for Visit: Pharmacy Benefits Coordinator- Other [3613] Cmt: Discharged new PCP Prescriptions as of [...] by mouth twice daily as needed - acetylcyst/iujkycW31/levomefol (METAFOLBIC PLUS ORAL) Take by mouth. - cetirizine (ZYRTEC) 10 mg tablet Take 1 tablet by mouth once daily as needed (for itching, sneezing or runny nose). - losartan (COZAAR) 25 mg tablet (Discontinued) Take 1 tablet by mouth once daily. - blood sugar diagnostic ([employer] ULTRA TEST) test strip USE TO TEST [...] 04/03/2018 Cystocele with p (more content not included)...[facility] 04-10-2024 Telephone encounter Note* Telephone Encounter - Maria A Martinez - 04/10/2024 3:31 PM EDT Patient's insurance no longer covers office. Removing CFM from dwain Espinoza [facility]09-27-2024 Miscellaneous Notes* Telephone Encounter - Maria A Martinez - 04/10/2024 3:31 PM EDT Patient's insurance no longer covers office. Removing CFM from profile Maria A documented in this encounterSam[facility]09-25-2024 Telephone encounter Note * Telephone Encounter - Williams Rubin MD - 04/08/2024 6:18 PM EDT Only 1 month refills because patient is overdue on Cr, K, and Lipid panel. BMP and LP ordered. Williams Rbuin MD [facility]09-25-2024 Miscellaneous Notes* Telephone Encounter - Williams [...] Itching Simvastatin Other: See Comments myalgia (home) [phone] (cell) Last Office Visit Date: 02/26/2024 Last Distance Health Visit: Visit date not found Future Appointment: 04/14/2024 The patients preferred pharmacy has been captured for this encounter? yes Request is for script(s) to be escript to pharmacy. Janet Nassar LPN documented in this encounterSam[facility]09-24-2024 Telephone encounter Note * Telephone Encounter [...] Itching Simvastatin Other: See Comments myalgia (home) [phone] (cell) Last Office Visit Date: 02/26/2024 Last Distance Health Visit: Visit date not found Future Appointment: 04/14/2024 The patients preferred pharmacy has been captured for this encounter? yes Request is for script(s) to be escript to pharmacy. Janet Nassar LPN [facility]09-20-2024 NoteHNO ID: [id number] Author: JEANIE MURPHY RN Service: ? Author Type: Registered Nurse Type: Progress Notes Filed: 04/03/2024 13:00 Note Text: PRIMARY CARE COORDINATION QUICK NOTE Provider Action/FYI Patient identified by name and date . PCC tried to contact patient for patient outreach. PCC left phone number [phone] for patient to contact PCC. Jeanie Murphy RN April 03, 2024 1:00 [facility]09-20-2024 History of Present illness Narrative* Jeanie Murphy RN - 04/03/2024 12:59 PM EDT PRIMARY CARE COORDINATION QUICK NOTE Provider Action/FYI Patient identified by name and date . PCC tried to contact patient for patient outreach. PCC left phone number [phone] for patient to contact PCC. Jeanie Murphy RN April 03, 2024 1:00 PM documented in this encounterSam[facility]09-20-2024 Telephone encounter Note * Telephone Encounter - Radha Bradley - 04/03/2024 10:03 AM EDT No Show Documentation Michelle Mcguire Jules no showed for an appointment on 04.02.24 with Sonia Carrera RPh at [facility]. She was scheduled for follow [...] Radha Bradley April 03, 2024 10:06 AM [facility]09-20-2024 Miscellaneous Notes* Telephone Encounter - Radha Bradley - 04/03/2024 10:03 AM EDT No Show Documentation Michelle Jules no showed for an appointment on 04.02.24 with Sonia Carrera RPh at [facility]. She was scheduled for follow [...] Linh Bradley April 03, 2024 10:06 AM documented in this encounterSam[facility]09-20-2024 NotePatient Outreach (AGACM) MICHELLE JLUES ([id number]) 1965 F Date Time Provider Department 04/03/24 JEANIE MURPHY [facility] During your visit today, we recorded the following information about you: Jeanie Murphy RN 04/03/2024 1:00 PM Signed PRIMARY CARE COORDINATION QUICK NOTE Provider Action/FYI Patient identified by name and date . PCC tried to contact patient for patient outreach. PCC left phone number [phone] for patient to contact PCC. Jeanie Murphy [...] LPN - Fully Assessed Reason for Visit: Pharmacy Benefits Coordinator Chronic Care [7608] Cmt: Attempted PCC follow up Prescriptions as [...] by mouth twice daily as needed - acetylcyst/fepqjdU81/levomefol (METAFOLBIC PLUS ORAL) Take by mouth. - cetirizine (ZYRTEC) 10 mg tablet Take 1 tablet by mouth once daily as needed (for itching, sneezing or runny nose). - losartan (COZAAR) 25 mg tablet (Discontinued) Take 1 tablet by mouth once daily. - blood sugar diagnostic (Audio[employer] ULTRA TEST) test strip USE TO TEST [...] 05/20/2023 Encounter Status:Closed by JEANIE MURPHY on 04/03/24[facility] 04-02-2024 NoteHNO ID: [id number] Author: SONIA CARRERA RPh Service: ? Author Type: Pharmacist Type: Progress Notes Filed: 04/02/2024 14:41 Note Text: Pt no showed appt with pharmD 04/02/2024. Notifying acute care nurse practitioner to reschedule. Appreciate collaboration. Hemoglobin A1C Date Value Ref Range Status 01/29/2024 10.2 (H) 4.3 - 5.6 % Final Comment: [place] [employer] guidelines indicate that patients with HgbA1c in the range 5.7-6.4% are at increased risk for development of diabetes, and intervention by lifestyle modification may be beneficial. HgbA1c greater or equal to 6.5% is considered diagnostic of diabetes.[facility] 03-21-2024 NoteHNO ID: [id number] Author: SONIA CARRERA RP Service: ? Author Type: Pharmacist Type: Progress Notes Filed: 03/21/2024 12:05 Note Text: No further adjustments warranted at this time. Appreciate acute care nurse practitioner's f/up on this content. PharmD appt 04/02/2024. Sonia Carrera [facility]09-06-2024 NoteHNO ID: [id number] Author: JEANIE MURPHY RN Service: ? Author [...] a trulicity. PCC instructed patient to call [phone] with any questions or concerns. Jeanie Murphy RN March 20, 2024 9:03 [facility]09[facility]24 NoteHNO ID: [id number] Author: SONIA CARRERA bhupendra Service: ? Author Type: Pharmacist Type: Progress Notes Filed: 03/19/2024 20:54 Note Text: Per pharmacy dispense report, filled 02/25/2024 for pack of 4 (~1 month supply). I'm not fully understanding what the issue with access is. Can we please call pharmacy for clarification. Sonia Carrera [facility]09-05-2024 NoteHNO ID: [id number] Author: JEANIE MURPHY RN Service: ? Author [...] Topic Date Due Dilated Retinal Exam 04/05/2024 Printing Sales Representative plan for next outreach: Will follow-up 3 weeks Signature: Jeanie Murphy RN [facility] 19[facility]09-05-[facility] History of Present illness Narrative* Jeanie Murphy [...] Topic Date Due Dilated Retinal Exam 04/05/2024 Printing Sales Representative plan for next outreach: Will follow-up 3 weeks Signature: Jeanie Murphy RN March 19, 2024 documented in this encounterSam[facility]09-05-2024 NoteHNO ID: [id number] Author: JEANIE MURPHY RN Service: ? Author Type: Registered Nurse Type: Progress Notes Filed: 03/19/2024 12:52 Note Text: PRIMARY CARE COORDINATION QUICK NOTE Provider Action/FYI Patient identified by name and date . PCC tried to contact patient for patient outreach. PCC left phone number [phone] for patient to contact PCC. Jeanie Murphy RN March 19, 2024 12:51 [facility]09-05-2024 History of Present illness Narrative* Jeanie Murphy RN - 03/19/2024 12:48 PM EDT PRIMARY CARE COORDINATION QUICK NOTE Provider Action/FYI Patient identified by name and date . PCC tried to contact patient for patient outreach. PCC left phone number [phone] for patient to contact PCC. Jeanie Murphy RN March 19, 2024 12:51 PM documented in this encounterSam[facility]09-05-2024 NotePatient Outreach (AGACM) MICHELLE JULES ([id number]) 1965 F Date Time Provider Department 03/19/24 [...] Topic Date Due Dilated Retinal Exam 04/05/2024 Printing Sales Representative plan for next outreach: Will follow-up 3 weeks Signature: Jeanie Murphy RN March 19, 2024 Sonia Carrera RPh 03/19/2024 8:54 PM Signed Per pharmacy dispense report, filled 02/25/2024 for pack of 4 (~1 month supply). I'm not fully understanding what the issue with access is. Can we please call pharmacy for clarification. Marcos Giron David, RN 03/20/2024 9:03 AM Signed PRIMARY CARE [...] a trulicity. PCC instructed patient to call [phone] with any questions or concerns. Jeanie Murphy RN March 20, 2024 9:03 AM Sonia Carrera RPh 03/21/2024 12:05 PM Signed No further adjustments warranted at this time. Appreciate acute care nurse practitioner's f/up on this content. PharmD appt 04/02/2024. Marcos Giron Megan, RPh 04/02/2024 2:41 PM Signed Pt no showed appt with pharmD 04/02/2024. Notifying acute care nurse practitioner to reschedule. Appreciate collaboration. Hemoglobin A1C Date Value Ref Range Status 01/29/2024 10.2 (H) 4.3 - 5.6 % Final Comment: [place] [employer] guidelines indicate that patients with [...] LPN - Fully Assessed Reason for Visit: Pharmacy Benefits Coordinator Chronic Care [0903] Cmt: PCC follow up Prescriptions as of 04/02/2024 - [...] at bedtime. - aspirin, (more content not included)...[facility]09-05-2024 NotePatient Outreach (AGACM) JULESMICHELLE ([id number]) 1965 F Date Time Provider Department 03/19/24 JEANIE MURPHY [facility] During your visit today, we recorded the following information about you: Jeanie Murphy RN 03/19/2024 12:52 PM Signed PRIMARY CARE COORDINATION QUICK NOTE Provider Action/FYI Patient identified by name and date . PCC tried to contact patient for patient outreach. PCC left phone number [phone] for patient to contact PCC. Jeanie Murphy [...] LPN - Fully Assessed Reason for Visit: Pharmacy Benefits Coordinator Chronic Care [7088] Cmt: Attempted PCC follow up Prescriptions as [...] by mouth twice daily as needed - acetylcyst/vzsydfW26/levomefol (METAFOLBIC PLUS ORAL) Take by mouth. - cetirizine (ZYRTEC) 10 mg tablet Take 1 tablet by mouth once daily as needed (for itching, sneezing or runny nose). - losartan (COZAAR) 25 mg tablet (Discontinued) Take 1 tablet by mouth once daily. - blood sugar diagnostic ([employer] Estate[employer]CH ULTRA TEST) test strip USE TO TEST [...] 05/20/2023 Encounter Status:Closed by JEANIE MURPHY on 03/19/24[facility] 03-09-2024 Telephone encounter Note* Telephone Encounter - [...] Itching Simvastatin Other: See Comments myalgia (home) [phone] (cell) Last Office Visit Date: 02/26/2024 Last Distance Health Visit: Visit date not found Future Appointment: 04/02/2024 The patients preferred pharmacy has been captured for this encounter? yes Request is for script(s) to be escript to pharmacy. Chelsy Eckert LPN [facility]08-26-2024 Miscellaneous Notes* Telephone Encounter - Chelsy [...] Itching Simvastatin Other: See Comments myalgia (home) [phone] (cell) Last Office Visit Date: 02/26/2024 Last [facility] Visit: Visit date not found Future Appointment: 04/02/2024 The patients preferred pharmacy has been captured for this encounter? yes Request is for script(s) to be escript to pharmacy. Chelsy Eckert LPN documented in this encounterSam[facility]08-24-2024 Telephone encounter Note * Telephone Encounter - Williams Rubin MD - 03/07/2024 9:30 AM EDT Needs BMP for Lasix refill. Williams Rubin MD [facility]08-24-2024 Miscellaneous Notes* Telephone Encounter - Williams Rubin MD - 03/07/2024 9:30 AM EDT Needs BMP for Lasix refill. Williams Rubin MD documented in this encounterSamaritan [facility] Center08-20-2024 NoteHNO ID: [id number] Author: WILLIAMS RUBIN MD Service: ? Author Type: Resident Type: Progress Notes Filed: 03/03/2024 12:40 Note Text: Thank you so much, Jeanie! Williams Rubin [facility]08-20-2024 History of Present illness Narrative* Williams Rubin [...] for patient to call PCC back at [phone]. Jeanie Murphy RN March 03, 2024 11:53 AM documented in this encounterSamaritan [facility] Center08-20-2024 NoteHNO ID: [id number] Author: JEANIE MURPHY RN Service: ? Author [...] for patient to call PCC back at [phone]. Jeanie Murphy RN March 03, 2024 11:53 [facility]08[facility] NotePatient Outreach ([facility]) JORGE AMICHELLE Mcguire ([id number]) 1965 F Date Time Provider Department 03/03/24 [...] for patient to call PCC back at [phone]. Jeanie Murphy RN March 03, 2024 11:53 [...] LPN - Fully Assessed Reason for Visit: Pharmacy Benefits Coordinator Chronic Care [4921] Cmt: Attempted to contact patient with PCP [...] by mouth twice daily as needed - acetylcyst/zwvcalT78/levomefol (METAFOLBIC PLUS ORAL) Take by mouth. - furosemide (LASIX) 40 mg tablet Take 1 tablet by mouth once daily. - cetirizine (ZYRTEC) 10 mg tablet Take 1 tablet by mouth once daily as needed (for itching, sneezing or runny nose). - losartan (COZAAR) 25 mg tablet (Discontinued) Take 1 tablet by mouth once daily. - blood sugar diagnostic (Mech[employer]TOUCH ULTRA TEST) test strip USE TO TEST [...] 05/20/2023 Encounter Status:Closed by JEANIE MURPHY on 03/03/24[facility] 03-02-2024 NoteHNO ID: [id number] Author: JAMIE AGGARWAL DO Service: ? Author Type: Physician Type: [...] See Pharmacist's note for furthur details. Jamie Aggarwal, [facility]08-19-2024 History of Present illness Narrative* Jamie Aggarwal DO - 03/02/2024 2:19 PM EDT PharmD [...] See Pharmacist's note for furthur details. Jamie Aggarwal DO * Sonia Carrera, [facility] - 02/26/2024 2:08 PM EDT REASON FOR [...] no pitting edema in legs noted per sign writer letterer or painter Regimen as below Confirms insulin pen goes [...] gym - cost limits option Working on [employer] application Past medical, family and social history reviewed and updated. Payor: [employer]ICA[employer] / Plan: [facility] MEDICAID [employer] [facility] / Product Type: Medicaid / REVIEW OF [...] (H) 4.3 - 5.6 % Final Comment: [place] [employer] guidelines indicate that patients with [...] breakfast based breakfast - complete application for [employer] 4. Encounter for medication counseling - ICD9: V65.49, ICD10: Z71.89 Reviewed administration steps for trulicity, pt able to demo with first injection 5. Preventative health care - ICD9: V70.0, ICD10: Z00.00 -schedule mammogram and colonoscopy 6. Complex care coordination - ICD9: V65.49, ICD10: Z71.89 - message sent to provider and acute care nurse practitioner regarding feet swelling Patient verbalized understanding of instructions. Thank you for allowing pharmacy to participate in this patient's care Sonia Carrera Rph The majority of the pharmacy visit (> 50%) was spent counseling and/or coordinating care for thepatient. I spent a total of 25 minutes on the date of the service which included preparing to see the patient, [id number]-[id number] patient care, completing clinical documentation, and counseling and educating the patient/family/caregiver. documented in this encounterSamaritan [facility] Center08-14-2024 Instructions* Patient Instructions* Sonia Carrera RPh - 02/26/2024 2:20 PM EDT Thank [...] toast or cereal - complete application for [employer] Other recommendations: - Please call central scheduling at [phone] to schedule mammogram and colonoscopy - lab work before next appointment, fast 8 hours before appointment documented in this encounterSamaritan [facility] Health Center08-14-2024 NoteHNO ID: [id number] Author: SONIA CARRERA RPh Service: ? Author Type: Pharmacist Type: [...] no pitting edema in legs noted per sign writer letterer or painter Regimen as below Confirms insulin pen goes [...] gym - cost limits option Working on [employer] application Past medical, family and social history reviewed and updated. Payor: [employer]ICAID / Plan: [facility] MEDICAID [employer] [facility] / Product Type: Medicaid / REVIEW OF [...] (H) 4.3 - 5.6 % Final Comment: [place] [employer] guidelines indicate that patients with [...] breakfast based breakfast - complete application for [employer] 4. Encounter for medication counseling - ICD9: V65.49, ICD10: Z71.89 Reviewed administration steps for trulicity, pt able to demo with first injection 5. Preventative health care - ICD9: V70.0, ICD10: Z00.00 -schedule mammogram and colonoscopy 6. Complex care coordination - ICD9: V65.49, ICD10: Z71.89 - message sent to provider and acute care nurse practitioner regarding feet swelling Patient verbalized understanding of instructions. Thank you for allowing pharmacy to participate in this patient's care Sonia Carrera [facility] The majority of the pharmacy visit (> 50%) was spent counseling and/or coordinating care for the patient. I spent a total of 25 minutes on the date of the servi (more content not included)...[facility]08-14-2024 NoteHNO ID: [id number] Author: JEANIE MURPHY RN Service: ? Author Type: Registered Nurse Type: Progress Notes Filed: 02/26/2024 12:04 Note Text: ED Follow-Up Note Provider Action / FYI: Patient doing well today. Patient has no need to see eye doctor. Patient going to [facility] Pharm D appointment thi afternoon. Jeanie Murphy RN February 26, 2024 12:03 PM Call completed by: RN Patient seen in ED: In Network ED Contact made with Patient: Yes The patient was identified by Name and Date of . Discussed Care with: patient Patient was seen in the Emergency Department (ED) Location: [facility] Date: 02/24/2024 Reason for ED Visit: [...] provided with appropriate counseling: Yes Based on production laborer, the following disposition is advised: No symptoms or symptoms present, not severe. Routed to: No Action Needed Jeanie Murphy RN February 26, 2024 12:03 [facility]08-14-2024 History of Present illness Narrative* Jeanie Murphy RN - 02/26/2024 11:54 AM EDT ED Follow-Up Note Provider Action / FYI: Patient doing well today. Patient has no need to see eye doctor. Patient going to [facility] Pharm D appointment thi afternoon. Jeanie Murphy RN February 26, 2024 12:03 PM Call completed by: RN Patient seen in ED: In Network ED Contact made with Patient: Yes The patient was identified by Name and Date of . Discussed Care with: patient Patient was seen in the Emergency Department (ED) Location: [facility] Date: 02/24/2024 Reason for ED Visit: Corneal [...] provided with appropriate counseling: Yes Based on production laborer, the following disposition is advised: No symptoms or symptoms present, not severe. Routed to: No Action Needed Jeanie Murphy RN February 26, 2024 12:03 PM documented in this encounterSamaritan [facility] Center08-14-2024 NotePatient Outreach (AGACM) MICHELLE JULES ([id number]) 1965 F Date Time Provider Department 02/26/24 JEANIE MURPHY During your visit today, we recorded the following information about you: Jeanie Murphy RN 02/26/2024 12:04 PM Signed ED Follow-Up Note Provider Action / FYI: Patient doing well today. Patient has no need to see eye doctor. Patient going to [facility] appointment thi afternoon. Jeanie Murphy RN February 26, 2024 12:03 PM Call completed by: RN Patient seen in ED: In Network ED Contact made with Patient: Yes The patient was identified by Name and Date of . Discussed Care with: patient Patient was seen in the Emergency Department (ED) Location: [facility] Date: 02/24/2024 Reason for ED Visit: [...] provided with appropriate counseling: Yes Based on production laborer, the following disposition is advised: No symptoms [...] Assessed Reason for Visit: Transition Of Care [6374] Cmt: ER follow up, [place], 02/24/2024 Prescriptions as of 02/26/2024 - dulaglutide [...] by mouth twice daily as needed - acetylcyst/otapwsW80/levomefol (METAFOLBIC PLUS ORAL) Take by mouth. - furosemide (LASIX) 40 mg tablet Take 1 tablet by mouth once daily. - cetirizine (ZYRTEC) 10 mg tablet Take 1 tablet by mouth once daily as needed (for itching, sneezing or runny nose). - losartan (COZAAR) 25 mg tablet (Discontinued) Take 1 tablet by mouth once daily. - blood sugar diagnostic (MechioTOUCH ULTRA TEST) test strip USE TO TEST [...] foot [M25.579] 07/12/2016 Nonall (more content not included)...[facility]08-12-2024 Telephone encounter Note* Telephone Encounter - Tamica Beatty LPN - 02/24/2024 5:34 PM EDT error [facility]08-12-2024 Miscellaneous Notes* Telephone Encounter - Tamica Beatty LPN - 02/24/2024 5:34 PM EDT error documented in this encounterSam[facility] Telephone encounter Note * Telephone Encounter - Williams Rubin MD - 02/21/2024 3:48 PM EDT Will message patient to see if there is another preferred pharmacy. Called patient on phone number in Chart and message stating [employer] your call cannot be completed. Williams Rubin MD [facility]08-09-2024 Miscellaneous Notes* Telephone Encounter - Williams [...] advise. Chelsy Eckert LPN documented in this encounterSam[facility]itan [facility]08-[facility]-2024 Telephone encounter Note * Telephone Encounter - Chelsy Eckert LPN - 02/20/2024 5:14 PM EDT Patient states pharmacy is unable to get the Victoza in, what is she supposed to do? Please advise. Chelsy Eckert LPN [facility]08-01-2024 NoteHNO ID: [id number] Author: WILLIAMS RUBIN MD Service: ? Author Type: Resident Type: Progress Notes Filed: 02/13/2024 16:36 Note Text: Thank you, Dr. Carrera!! Thank you both for the updates too! Williams Rubin [facility]08-01-2024 History of Present illness Narrative* Williams Rubin MD - 02/13/2024 4:35 PM EDT Thank you, Dr. Carrera!! Thank you both for the updates too! Williams Rubin MD * Sonia Carrera, [facility] - 02/13/2024 12:35 PM EDT Unable to make adjustments based on patient reports. Appt with pharmD 02/26/2024. Please ensure pt brings CGM reader. Thank you! Sonia Carrera RPh * Jeanie Murphy RN - 02/13/2024 [...] is 02/26/2024. PCC instructed patient to call [phone] with any questions or concerns. Health leads [...] Urine Albumin:Creatinine Ratio 01/26/2024 LDL Cholesterol 01/26/2024 Printing Sales Representative plan for next outreach: Will follow-up 3 weeks Signature: Jeanie Murphy RN February 13, 2024 documented in this encounterSam[facility]08-01-2024 NoteHNO ID: [id number] Author: SONIA CARRERA, [facility] Service: ? Author Type: Pharmacist Type: Progress Notes Filed: 02/13/2024 12:36 Note Text: Unable to make adjustments based on patient reports. Appt with pharmD 02/26/2024. Please ensure pt brings CGM reader. Thank you! Sonia Carrera, [facility]08-01-2024 NoteHNO ID: [id number] Author: JEANIE MURPHY RN Service: ? Author [...] is 02/26/2024. PCC instructed patient to call [phone] with any questions or concerns. Health leads [...] Urine Albumin:Creatinine Ratio 01/26/2024 LDL Cholesterol 01/26/2024 Printing Sales Representative plan for next outreach: Will follow-up 3 weeks Signature: Jeanie Murphy RN February [address] [place], [place] 2297608-01-2024 NotePatient Outreach (AGACM) MICHELLE JULES ([id number]) 1965 F Date Time Provider Department 02/13/24 JEANIE MURPHY [facility] During your [...] is 02/26/2024. PCC instructed patient to call [phone] with any questions or concerns. Health leads [...] Urine Albumin:Creatinine Ratio 01/26/2024 LDL Cholesterol 01/26/2024 Printing Sales Representative plan for next outreach: Will follow-up 3 weeks Signature: Jeanie Murphy RN February 13, 2024 Sonia Carrera [facility] 02/13/2024 12:36 PM Signed Unable to make adjustments based on patient reports. Appt with pharmD 02/26/2024. Please ensure pt brings CGM reader. Thank you! Sonia Carrera, [facility] Williams Rubin MD 02/13/2024 4:36 PM Signed Thank you, Dr. Carrera!! Thank you both for the updates too! [...] LPN - Fully Assessed Reason for Visit: Pharmacy Benefits Coordinator Chronic Care [3612] Cmt: PCC follow up Prescriptions as of 02/13/2024 - [...] by mouth twice daily as needed - acetylcyst/wnblxlT30/levomefol (METAFOLBIC PLUS ORAL) Take by mouth. - furosemide (LASIX) 40 mg tablet Take 1 tablet by mouth once daily. - cetirizine (ZYRTEC) 10 mg tablet Take 1 tablet by mouth once daily as needed (for itching, sneezing or runny nose). - losartan (COZAAR) 25 mg tablet (Discontinued) Take 1 tablet by mouth once daily. - blood sugar diagnostic (Favista Real EstateUCH ULTRA TEST) test strip USE TO TEST BLOOD SUGAR THREE TIMES A DAY - atorvastatin (LIPITOR) 10 mg tablet Take 1 tablet by mouth once daily. - carvedilol (COREG) 25 mg tablet Take 1 tablet by mouth twice daily. Facility-Administered Medications as of (more content not included)...[facility]07-31-2024 Telephone encounter Note* Telephone Encounter - Karthik Cazares - 02/12/2024 3:04 PM EDT The patient/caregiver contacted the office, requesting refills of liraglutide (VICTOZA) 0.6 mg/ 0.1ml subcutaneous pen injector . Patient prefers prescriptions to be e prescribed to [facility] - [address] [place] [address] - [address] - [phone] Last Office Visit Date: 01/29/2024 Last [facility] Visit: Visit date not found Future Appointment: 02/26/2024 Karthik Cazares [facility]07-31-2024 Miscellaneous Notes* Telephone Encounter - Karthik Cazares - 02/12/2024 3:04 PM EDT The patient/caregiver contacted the office, requesting refills of liraglutide (VICTOZA) 0.6 mg/ 0.1ml subcutaneous pen injector . Patient prefers prescriptions to be e prescribed to [facility] - [address] [place] [address] - [address] [phone] Last Office Visit Date: 01/29/2024 Last [facility] Visit: Visit date not found Future Appointment: 02/26/2024 Karthik Cazares documented in this encounterSam[facility]07-[facility]-2024 Telephone encounter Note * Telephone Encounter [...] Itching Simvastatin Other: See Comments myalgia (home) [phone] (cell) Last Office Visit Date: 01/29/2024 Last Distance Health Visit: Visit date not found Future Appointment: 02/26/2024 The patients preferred pharmacy has been captured for this encounter? yes Request is for script(s) to be escript to pharmacy. Aby Bahena LPN [facility]07-31-2024 Miscellaneous Notes* Telephone Encounter - Aby [...] Itching Simvastatin Other: See Comments myalgia (home) [phone] (cell) Last Office Visit Date: 01/29/2024 Last [facility] Health Visit: Visit date not found Future Appointment: 02/26/2024 The patients preferred pharmacy has been captured for this encounter? yes Request is for script(s) to be escript to pharmacy. Aby Bahena LPN documented in this encounterSamaritan [facility] Center07-18-2024 NoteHNO ID: [id number] Author: WILLIAMS RUBIN MD Service: ? Author Type: Resident Type: Progress Notes Filed: 01/30/2024 11:01 Note Text: This is great news! Thank you, Dr. Carrera! Williams Rubin [facility]07-17-2024 NoteHNO ID: [id number] Author: JAMIE AGGARWAL DO Service: ? Author Type: Physician Type: [...] See Pharmacist's note for furthur details. Jamie Aggarwal [facility] History of Present illness Narrative* Jamie Aggarwal DO - 01/29/2024 2:16 PM EDT PharmD [...] See Pharmacist's note for furthur details. Jamie Aggarwal DO * Williams Rubin MD - 01/29/2024 12:38 PM EDT Thank you, Dr. Carrera! Mammogram ordered! Williams Rubin MD * [facility]/29/[facility]24 11:33 AM EDT REASON FOR [...] cost limits option Going on trip to [place] end of this month Follows Past medical, family and social history reviewed and updated. Payor: [employer]ICA[employer] / Plan: [facility] MEDICAID [facility] / Product Type: Medicaid / REVIEW OF [...] (A) 4.3 - 5.6 % Final Comment: [facility] [address], [facility] Point of care (POC) Hemoglobin A1c (HGBA1C) [...] specific diabetes management situations: The POC device tobacco sampler provides a normal range of 4.2% to 6.5% for the HGBA1C POC test. However, the [place] [employer] guidelines indicate that patients with [...] Z71.89 Message sent to resident PCP and acute care nurse practitioner Patient verbalized understanding of instructions. Thank you for allowing pharmacy to participate in this patient's care Sonia Carrera Rph The majority of the pharmacy visit (> 50%) was spent counseling and/or coordinating care for thepatient. I spent a total of 25 minutes on the date of the service which included preparing to see the patient, [id number] patient care, completing clinical documentation, and counseling and educating the patient/family/caregiver. documented in this encounterSamaritan North Health Center07-17-2024 NoteHNO ID: [id number] Author: WILLIAMS RUBIN MD Service: ? Author Type: Resident Type: Progress Notes Filed: 01/29/2024 13:57 Note Text: Thank you, Dr. Carrera! Mammogram ordered! Williams Rubin [facility]07-17-2024 Instructions* Patient Instructions* Sonia Carrera RPh - 01/29/2024 11:46 AM EDT Thank [...] instead of crackers - review application for [facility] - Please call central scheduling at [phone] to schedule colonoscopy and mammogram - get lab work documented in this encounterSamaritan North Health Center07-17-2024 NoteHNO ID: [id number] Author: SONIA CARRERA RPh Service: ? Author Type: Pharmacist Type: [...] cost limits option Going on trip to [place] end of this month Follows Past medical, family and social history reviewed and updated. Payor: [employer]ICA[employer] / Plan: [facility] MEDICAID [facility] / Product Type: Medicaid / REVIEW OF [...] (A) 4.3 - 5.6 % Final Comment: Location:[facility], [address] [place] [address], [facility] Point of care (POC) Hemoglobin A1c (HGBA1C) [...] specific diabetes management situations: The POC device tobacco sampler provides a normal range of 4.2% to 6.5% for the HGBA1C POC test. However, the [place] [employer] guidelines indicate that patients with [...] neuropathy, with long-term current use of insulin ([facility]) - ICD9: 250.60, 357.2, V58.67, ICD10: E11.40, [...] for screening mammogram for (more content not included)...[facility]07-01-2024 NoteHNO ID: [id number] Author: WILLIAMS RUBIN MD Service: ? Author Type: Resident Type: Progress Notes Filed: 01/13/2024 16:47 Note Text: Noted. Thank you so much, Dr. Carrera! Williams Rubin [facility]06-26-2024 NoteHNO ID: [id number] Author: SONIA CARRERA [facility] Service: ? Author Type: Pharmacist Type: Progress Notes Filed: 01/08/2024 12:45 Note Text: Unable to make adjustments based on these reported readings. Please ensure patient brings CGM to pharmD appt. Thanks! Sonia Carrera, [facility] Hemoglobin A1C (POCT) Date Value Ref Range Status 12/24/2023 10.7 (A) 4.3 - 5.6 % Final Comment: Location:[facility], [address] [place] [address], [address] Point of care (POC) Hemoglobin A1c (HGBA1C) [...] specific diabetes management situations: The POC device tobacco sampler provides a normal range of 4.2% to 6.5% for the HGBA1C POC test. However, the [place] [employer] guidelines indicate that patients with [...] (e.g. anemia) that alter red blood cell lifespan.[facility]06-25-2024 NoteHNO ID: [id number] Author: JEANIE MURPHY RN Service: ? Author [...] follow up PCC instructed patient to call [phone] with any questions or concerns. Health leads [...] Urine Albumin:Creatinine Ratio 01/26/2024 LDL Cholesterol 01/26/2024 Printing Sales Representative plan for next outreach: Will follow-up 2 weeks Signature: Jeanie Murphy RN [facility] 06[facility]06-[facility] History of Present illness Narrative* Jeanie Murphy [...] follow up PCC instructed patient to call [phone] with any questions or concerns. Health leads [...] Urine Albumin:Creatinine Ratio 01/26/2024 LDL Cholesterol 01/26/2024 Printing Sales Representative plan for next outreach: Will follow-up 2 weeks Signature: Jeanie Murphy RN January 07, 2024 documented in this encounterSamaritan North Health Center06-25-2024 NotePatient Outreach (AGA) MICHELLE JULES ([id number]) 1965 F Date Time Provider Department 01/07/24 JEANIE MURPHY [facility] During your visit today, we recorded the following information about you: Jeanie Murphy RN 01/07/2024 4:23 PM Signed AG PRIMARY [...] follow up PCC instructed patient to call [phone] with any questions or concerns. Health leads [...] Urine Albumin:Creatinine Ratio 01/26/2024 LDL Cholesterol 01/26/2024 Printing Sales Representative plan for next outreach: Will follow-up 2 weeks Signature: Jeanie Murphy RN January 07, 2024 Sonia Carrera RPh 01/08/2024 12:45 PM Signed Unable to make adjustments based on these reported readings. Please ensure patient brings CGM to pharmD appt. Thanks! Sonia Carrera RPh Hemoglobin A1C (POCT) Date Value Ref Range Status 12/24/2023 10.7 (A) 4.3 - 5.6 % Final Comment: Location:[facility], [address] [place] [address], [facility] Point of care (POC) Hemoglobin A1c (HGBA1C) [...] specific diabetes management situations: The POC device tobacco sampler provides a normal range of 4.2% to 6.5% for the HGBA1C POC test. However, the [place] Diabetes [employer] guidelines indicate that patients with [...] Signed Noted. Thank you so much, Dr. Carrera! Williams Rubin MD Allergies As of Date: 01/07/2024 Noted Allergy Reaction ADHESIVE TAPE (ROSINS) 03/27/2006 9 - Itching LATEX, NATURAL RUBBER 09/09/2018 2 - Rash METFORMIN 07/22/2018 14 - Other: See Comments Comments: Caused arrhythmia issues SEASONAL ALLERGIES 03/01/2023 9 - Itching SIMVASTATIN 11/04/2012 14 - Other: See Comments Comments: myalgia Date Reviewed: 12/24/2023 Reviewed by: Manny Shields MD - Fully Assessed Reason for Visit: Pharmacy Benefits Coordinator Chronic Care [3612] Cmt: Pcc follow up [...] per day for her (more content not included)...[facility]06-21-2024 NoteHNO ID: [id number] Author: KASANDRA RUBIN, DO Service: ? Author Type: Physician Type: [...] details. Signature: Kasandra Rubin DO Faculty Physician, [facility] Family Medicine Residency Date: January 03, 2024 Time: 6:26 [facility] NoteHNO ID: [id number] Author: JEANIE MURPHY RN Service: ? Author [...] slight improvement. PCC instructed patient to call [phone] with any questions or concerns. Jeanie Murphy RN December 30, 2023 3:28 [facility]06-17-2024 History of Present illness Narrative* Jeanie Murphy [...] slight improvement. PCC instructed patient to call [phone] with any questions or concerns. Jeanie Murphy RN December 30, 2023 3:28 PM documented in this encounterSamaritan North Health Center06-17-2024 NotePatient Outreach (AGACM) MICHELLE JULES ([id number]) 1965 F Date Time Provider Department 12/30/23 [...] slight improvement. PCC instructed patient to call [phone] with any questions or concerns. Jeanie Murphy [...] myalgia Date Reviewed: 12/24/2023 Reviewed by: Manny Shields MD - Fully Assessed Reason for Visit: Pharmacy Benefits Coordinator Chronic Care [4137] Cmt: PCC follow up, patient updated on [...] by mouth twice daily as needed - acetylcyst/ovpakrJ45/levomefol (METAFOLBIC PLUS ORAL) Take by mouth. - furosemide (LASIX) 40 mg tablet Take 1 tablet by mouth once daily. - cetirizine (ZYRTEC) 10 mg tablet Take 1 tablet by mouth once daily as needed (for itching, sneezing or runny nose). - losartan (COZAAR) 25 mg tablet (Discontinued) Take 1 tablet by mouth once daily. - blood sugar diagnostic (Favista Real EstateUCH ULTRA TEST) test strip USE TO TEST [...] 05/20/2023 Encounter Status:Closed by JEANIE MURPHY on 12/30/23[facility] 12-27-2023 NoteHNO ID: [id number] Author: SONIA CARRERA [facility] Service: ? Author Type: Pharmacist Type: Progress Notes Filed: 12/27/2023 13:59 Note Text: As documented in separate encounter - lowering dose victoza to see if improves nausea. Needs to schedule external testing. Can get brendon drops OTC to help with nausea. Will defer to provider if he would like to do acute script for complaint. Sonia Carrera [facility]06-14-2024 NoteHNO ID: [id number] Author: JEANIE MURPHY, RN Service: ? Author [...] Jeanie Murphy RN December 27, 2023 1:18 [facility]06-14-2024 History of Present illness Narrative* Jeanie Murphy [...] 27, 2023 1:18 PM documented in this encounterSamaritan North Health Center06-14-2024 NoteHNO ID: [id number] Author: SONIA CARRERA RPh Service: ? Author Type: Pharmacist Type: [...] R11.0 - NM GASTRIC EMPTYING SOLID [facility] History of Present illness Narrative* Sonia Carrera RPh - 12/27/2023 1:06 PM EDT Collaboration [...] R11.0 - NM GASTRIC EMPTYING SOLID Sonia Carrera RPh * Manny Shields MD - 12/24/2023 1:40 PM EDT Images from the original note were not included. [facility] [address] [place], [place] [address] Visit Date: December 23, 2023 Name: Michelle Jules Date of : 1965 MRN/E #: [id number] Chief Complaint: No chief complaint on file. 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 furosemide (LASIX) 40 mg tablet Take 1 tablet by mouth once daily. cetirizine (ZYRTEC) 10 mg tablet Take 1 tablet by mouth once daily as needed (for itching, sneezingor runny nose). blood sugar diagnostic (Favista Real EstateUCH ULTRA TEST) test strip USE TO TEST [...] neuropathy, with long-term current use of insulin ([facility]) - improved control, A1C 10.7 today - [...] weeks (around 01/21/2024) for f/u with Dr. Carrera for diabetes . Provider: Manny Shields MD Date: December 23, 2023 Time: 9:03 PM documented in this encounterSamaritan North Health Center06-14-2024 NoteHNO ID: [id number] Author: MANNY SHIELDS MD Service: ? Author Type: Resident Type: Progress Notes Filed: 12/27/2023 12:41 Note Text: Attempted to call patient but went directly to and did not allow message. Will try again later.[facility]06-14-2024 NotePatient Outreach (AGACM) MICHELLE JULES ([id number]) 1965 F Date Time Provider Department 12/27/23 JEANIE MURPHY [facility] During your visit today, we recorded the following information about you: Jeanie Murphy RN 12/27/2023 1:19 PM Signed PRIMARY CARE COORDINATION [...] myalgia Date Reviewed: 12/24/2023 Reviewed by: Manny Shields MD - Fully Assessed Reason for Visit: Pharmacy Benefits Coordinator Chronic Care [4960] Cmt: Attempted outreach Prescriptions as of 12/27/2023 [...] by mouth twice daily as needed - acetylcyst/ameznbN93/levomefol (METAFOLBIC PLUS ORAL) Take by mouth. - furosemide (LASIX) 40 mg tablet Take 1 tablet by mouth once daily. - cetirizine (ZYRTEC) 10 mg tablet Take 1 tablet by mouth once daily as needed (for itching, sneezing or runny nose). - losartan (COZAAR) 25 mg tablet (Discontinued) Take 1 tablet by mouth once daily. - blood sugar diagnostic ([employer] ULTRA TEST) test strip USE TO TEST [...] 05/20/2023 Encounter Status:Closed by JEANIE MURPHY on 12/27/23[facility] 12-26-2023 NoteHNO ID: [id number] Author: JEANIE MURPHY RN Service: ? Author [...] Screening 09/27/2021 Behavioral Health Screening Never done Printing Sales Representative plan for next outreach: Will follow-up 2 weeks Signature: [facility] RN [facility] History of Present illness Narrative* Jeanie Murphy [...] Screening 09/27/2021 Behavioral Health Screening Never done Printing Sales Representative plan for next outreach: Will follow-up 2 weeks Signature: Jeanie Murphy RN December 26, 2023 documented in this encounterSamaritan [facility] Center06-13-2024 NotePatient Outreach (AGACM) MICHELLE JULES ([id number]) 1965 F Date Time Provider Department 12/26/23 [...] Screening 09/27/2021 Behavioral Health Screening Never done Printing Sales Representative plan for next outreach: Will follow-up 2 weeks Signature: Jeanie Murphy RN December 26, 2023 Manny Shields MD 12/27/2023 12:41 PM Signed Attempted to call patient but went directly to and did not allow message. Will try again later. Sonia Carrera RPh 12/27/2023 1:59 PM Signed As documented in separate encounter - lowering dose victoza to see if improves nausea. Needs to schedule external testing. Can get brendon drops OTC to help with nausea. Will defer to provider if he would like to do acute script for complaint. Sonia Carrera RPh Allergies As of Date: 12/26/2023 Noted Allergy Reaction ADHESIVE TAPE (ROSINS) 03/27/2006 9 - Itching LATEX, NATURAL RUBBER 09/09/2018 2 - Rash METFORMIN 07/22/2018 14 - Other: See Comments Comments: Caused arrhythmia issues SEASONAL ALLERGIES 03/01/2023 9 - Itching SIMVASTATIN 11/04/2012 14 - Other: See Comments Comments: myalgia Date Reviewed: 12/24/2023 Reviewed by: Manny Shields MD - Fully Assessed Reason for Visit: Pharmacy Benefits Coordinator Chronic Care [0872] Cmt: PCC follow up Prescriptions as of [...] by mouth twice daily as needed - acetylcyst/irayoiK15/levomefol (METAFOLBIC PLUS ORAL) Take by mouth. - [...] (COREG) 25 mg tablet (more content not included)...[facility]06-11-2024 NoteHNO ID: [id number] Author: MANNY SHIELDS MD Service: ? Author Type: Resident Type: Progress Notes Filed: 12/30/2023 10:29 Note Text: [facility] [address] [place], [place] [address] Visit Date: December 23, 2023 Name: Michelle Jules Date of : 1965 MRN/E #: [id number] Chief Complaint: No chief complaint on file. 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 furosemide (LASIX) 40 mg tablet Take 1 tablet by mouth once daily. cetirizine (ZYRTEC) 10 mg tablet Take 1 tablet by mouth once daily as needed (for itching, sneezing or runny nose). blood sugar diagnostic (Favista Real EstateUCH ULTRA TEST) test strip USE TO TEST [...] diabetes and gerd. Diagnoses (more content not included)...[facility]05-24-2024 NoteHNO ID: [id number] Author: JEANIE MURPHY RN Service: ? Author Type: Registered Nurse Type: Progress Notes Filed: 12/06/2023 12:15 Note Text: PRIMARY CARE COORDINATION QUICK NOTE Provider Action/FYI Patient identified by name and date . PCC attempted to contact patient to reschedule Pharm D appointment. PCC unable to leave a message. Jeanie Murphy RN December 06, 2023 12:14 [facility]05-24-2024 History of Present illness Narrative* Jeanie Murphy RN - 12/06/2023 12:14 PM EDT PRIMARY CARE COORDINATION QUICK NOTE Provider Action/FYI Patient identified by name and date . PCC attempted to contact patient to reschedule Pharm D appointment. PCC unable to leave a message. Jeanie Murphy RN December 06, 2023 12:14 PM documented in this encounterSam[facility]itan [facility]05-24-2024 NotePatient Outreach ([facility]) JORGE AMICHELLE Mcguire ([id number]) 1965 F Date Time Provider Department 12/06/23 JEANIE MURPHY [facility] During your visit today, we recorded the following information about you: Jeanie Murphy RN 12/06/2023 12:15 PM Signed PRIMARY CARE COORDINATION QUICK NOTE Provider Action/FYI Patient identified by name and date . PCC attempted to contact patient to reschedule Pharm D appointment. PCC unable to leave a message. Jeanie Murhpy RN December 06, 2023 12:14 PM Allergies [...] LPN - Fully Assessed Reason for Visit: Pharmacy Benefits Coordinator Chronic Care [3612] Cmt: Attempted PCC follow [...] - ergocalciferol 50,000 unit capsule (VITAMIN D2, DOUGLASOL) Take 1 capsule by mouth one time a week. - gabapentin (NEURONTIN) 300 mg capsule Take 1 capsule by mouth daily at bedtime for 270 days. - flash glucose sensor (FREESTYLE LANCE 2 SENSOR) kit Use to check blood sugar before meals and at bedtime - Docusate Sodium (STOOL SOFTENER) 100 mg tab Take 1 capsule by mouth twice daily as needed - acetylcyst/nhdmniM62/levomefol (METAFOLBIC PLUS ORAL) Take by mouth. - furosemide (LASIX) 40 mg tablet Take 1 tablet by mouth once daily. - cetirizine (ZYRTEC) 10 mg tablet Take 1 tablet by mouth once daily as needed (for itching, sneezing or runny nose). - losartan (COZAAR) 25 mg tablet (Discontinued) Take 1 tablet by mouth once daily. - blood sugar diagnostic ([employer] ULTRA TEST) test strip USE TO TEST [...] 05/20/2023 Encounter Status:Closed by JEANIE MURPHY on 12/06/23[facility] 12-05-2023 Telephone encounter Note* Telephone Encounter - Cristiane Montanez - 12/05/2023 2:35 PM EDT Patient said she missed her appointment bc she came and got lost. Attempted to reach out to pt to reschedule and pt phone had a really bad connection. Tried calling her back and it went to a busy tone. [facility]05-23-[facility]24 Miscellaneous Notes* Telephone Encounter - Cristiane Montanez - 12/05/2023 2:35 PM EDT Patient said she missed her appointment bc she came and got lost. Attempted to reach out to pt to reschedule and pt phone had a really bad connection. Tried calling her back and it went to a busy tone. * Telephone Encounter - Cristiane Montanez - 12/05/2023 2:33 PM EDT ----- Message from Tayler Chin sent at 12/05/2023 2:09 PM EDT ----- [address] [place] [address]/FAMP AG ACC// Homar Vasques MD / [Callback- reschedule pharmacist appointment] Subject Line Format: Medicine / Homar Vasques MD / [Callback-reschedule pharmacist appointment] Select Department Name For Pool Routing Assistance: FAMP AG ACC CFM => AG FAMP ACC CFM APPT CTR TRIAGE POOL [[id number]] Patient: Michelle Jules Date of : 1965 Primary Care Provider: Homar Vasques MD The reason I am contacting the office is: Call Back - Patient is requesting a call back from PCP Office about rescheduling appointment for 12/05/23 at 2:00pm with the pharmacist. Person calling if other than patient: N/A Best contact number: [phone] Thank you, Tayler Chin December 05, 2023 2:09 PM documented in this encounterSamaritan North Health Center05-23-2024 Telephone encounter Note * Telephone Encounter - Cristiane Montanez - 12/05/2023 2:33 PM EDT ----- Message from Tayler Chin sent at 12/05/2023 2:09 PM EDT ----- RegardinC Ida/FAMP AG ACC// Homar Vasques MD / [Callback- reschedule pharmacist appointment] Subject Line Format: Medicine / Homar Vasques MD / [Callback-reschedule pharmacist appointment] Select Department Name For Pool Routing Assistance: FAMP AG ACC CFM => AG FAMP ACC CFM APPT CTR TRIAGE POOL [[id number]] Patient: Michelle Jules Date of : 1965 Primary Care Provider: Homar Vasques MD The reason I am contacting the office is: Call Back - Patient is requesting a call back from PCP Office about rescheduling appointment for 12/05/23 at 2:00pm with the pharmacist. Person calling if other than patient: N/A Best contact number: [phone] Thank you, Tayler Chin December 05, 2023 2:09 PM [facility]05-23-[facility] Telephone encounter Note* Telephone Encounter - Sonia Carrera RPh - 12/05/2023 2:18 PM EDT Patient no showed appt with pharmd today. Attempted telephone outreach - unable to reach. A1c due at this time; order placed. Please have patient obtain and reschedule with pharmd thanks! Hemoglobin A1C (POCT) Date Value Ref Range Status 08/30/2023 13.7 (A) 4.3 - 5.6 % Final Comment: Location:[facility], [address] [place] [address], [facility] Point of care (POC) Hemoglobin A1c (HGBA1C) [...] specific diabetes management situations: The POC device tobacco sampler provides a normal range of 4.2% to 6.5% for the HGBA1C POC test. However, the [place] [employer] guidelines indicate that patients with [...] anemia) that alter red blood cell lifespan. [facility]05-23-2024 Miscellaneous Notes* Telephone Encounter - Sonia Carrera RPh - 12/05/2023 2:18 PM EDT Patient no showed appt with pharmd today. Attempted telephone outreach - unable to reach. A1c due at this time; order placed. Please have patient obtain and reschedule with pharmd thanks! Hemoglobin A1C (POCT) Date Value Ref Range Status 08/30/2023 13.7 (A) 4.3 - 5.6 % Final Comment: Location:[facility], [address] [place] [address], [facility] Point of care (POC) Hemoglobin A1c (HGBA1C) [...] specific diabetes management situations: The POC device tobacco sampler provides a normal range of 4.2% to 6.5% for the HGBA1C POC test. However, the [place] [employer] guidelines indicate that patients with [...] red blood cell lifespan. documented in this encounterSamaritan North Health Center05-17-2024 NoteHNO ID: [id number] Author: JEANIE MURPHY RN Service: ? Author Type: Registered Nurse Type: Progress Notes Filed: 11/29/2023 16:11 Note Text: PRIMARY CARE COORDINATION QUICK NOTE Provider Action/FYI Patient identified by name and date . PCC contacted patient and made her aware Dr. Carrera would like her to increase her humalog to 18 units. Patient repeated instructions back. Patient has no questions or concerns. Jeanie Murphy RN November 29, 2023 4:11 [facility]05-17-2024 History of Present illness Narrative* Jeanie Murphy RN - 11/29/2023 4:10 PM EDT PRIMARY CARE COORDINATION QUICK NOTE Provider Action/FYI Patient identified by name and date . PCC contacted patient and made her aware Dr. Carrera would like her to increase her humalog to 18 units. Patient repeated instructions back. Patient has no questions or concerns. Jeanie Murphy RN November 29, 2023 4:11 PM * Sonia Carrera RPh - 11/29/2023 3:53 PM EDT Please have patient INCREASE humalog to 18 units with meals. Thank you. Sonia Carrera [facility] * Jeanie Murphy RN - 11/29/2023 3:16 PM EDT AG PRIMARY CARE COORDINATION FOLLOW-UP NOTE Provider Action/FYI: Patient identified by name and date of : YES Spoke to: patient Summary: Dr. Carrera, I contacted patient for PCC follow up. Patient is taking all medication as prescribed. Patient has not missed any shots, except for a few of her Noon lispro shots. Patient gave 7 day time in range readings. In range 70-180 14% Above range >181 86% Bellow range 0% Patient has Pharm D appointment 12/05/2023. PCC instructed patient to call [phone] with any questions or concerns. Health leads [...] Behavioral Health Screening Never done HbA1C 11/28/2023 Printing Sales Representative plan for next outreach: Will follow-up 3 weeks Signature: Jeanie Murphy RN November 29, 2023 documented in this encounterSamaritan North Health Center05-17-2024 Note* Addendum Note - Sonia Carrera RPh - 11/29/2023 3:54 PM EDTAddended by: SONIA CARRERA on: 11/29/2023 03:54 PM Modules accepted: Orders [facility]05-17-2024 Miscellaneous Notes* Addendum Note - Sonia Carrera RPh - 11/29/2023 3:54 PM EDTAddended by: SONIA CARRERA on: 11/29/2023 03:54 PM Modules accepted: Orders documented in this encounterSamaritan North Health Center05-17-2024 NoteHNO ID: [id number] Author: SONIA CARRERA RPh Service: ? Author Type: Pharmacist Type: Progress Notes Filed: 11/29/2023 15:54 Note Text: Please have patient INCREASE humalog to 18 units with meals. Thank you. Sonia Carrera [facility]05-17-2024 NoteHNO ID: [id number] Author: JEANIE MURPHY, [place] Service: ? Author Type: Registered Nurse Type: Progress Notes Filed: 11/29/2023 15:27 Note Text: AG PRIMARY CARE COORDINATION FOLLOW-UP NOTE Provider Action/FYI: Patient identified by name and date of : YES Spoke to: patient Summary: Dr. Carrera, I contacted patient for PCC follow up. Patient is taking all medication as prescribed. Patient has not missed any shots, except for a few of her Noon lispro shots. Patient gave 7 day time in range readings. In range 70-180 14% Above range >181 86% Bellow range 0% Patient has Pharm D appointment 12/05/2023. PCC instructed patient to call [phone] with any questions or concerns. Health leads [...] Behavioral Health Screening Never done HbA1C 11/28/2023 Printing Sales Representative plan for next outreach: Will follow-up 3 weeks Signature: Jean[facility] RN [facility] 28[facility] NotePatient Outreach ([facility]) MICHELLE JULES ([id number]) 1965 F Date Time Provider Department 11/29/23 JEANIE MURHPY [facility] During your visit today, we recorded the following information about you: Jeanie Murphy RN 11/29/2023 3:27 PM Signed PRIMARY CARE COORDINATION FOLLOW-UP NOTE Provider Action/FYI: Patient identified by name and date of : YES Spoke to: patient Summary: Dr. Carrera, I contacted patient for PCC follow up. Patient is taking all medication as prescribed. Patient has not missed any shots, except for a few of her Noon lispro shots. Patient gave 7 day time in range readings. In range 70-180 14% Above range >181 86% Bellow range 0% Patient has Pharm D appointment 12/05/2023. PCC instructed patient to call [phone] with any questions or concerns. Health leads [...] Behavioral Health Screening Never done HbA1C 11/28/2023 Printing Sales Representative plan for next outreach: Will follow-up 3 weeks Signature: Jeanie Murphy RN November 29, 2023 Sonia Carrera [facility] 11/29/2023 3:54 PM Signed Please have patient INCREASE humalog to 18 units with meals. Thank you. Sonia Carrera [facility] Sonia Carrera bhupendra 11/29/2023 3:54 PM Signed Addended by: SONIA CARRERA on: 11/29/2023 03:54 PM Modules accepted: Jeanie Schroeder RN 11/29/2023 4:11 PM Signed PRIMARY CARE COORDINATION QUICK NOTE Provider Action/FYI Patient identified by name and date . PCC contacted patient and made her aware Dr. Carrera would like her to increase her humalog [...] LPN - Fully Assessed Reason for Visit: Pharmacy Benefits Coordinator Chronic Care [7091] Cmt: PCC follow up Visit Diagnosis:Type 2 [...] by mouth twice daily as needed - acetylcyst/bmhcnpD21/levomefol (METAFOLBIC PLUS ORAL) Take by mouth. - furosemide (LASIX) 40 mg tablet Take 1 tablet by mouth once daily. - cetirizine (ZYRTEC) 10 mg tablet Take 1 tablet by mouth once daily as needed (for itching, sneezing or runny nose). - losartan (COZAAR) 25 mg tablet (Discontinued) Take 1 tablet by mouth once daily. - blood sugar diagnostic ([employer] ULTRA TEST) test strip USE TO TEST BLOOD SUGAR THREE TIMES A DAY - aspirin, enteric coated (ECOTRIN LOW STRENGTH) 81 mg EC tablet Take 1 tablet by mouth once daily. - atorvastatin (LIPITOR) 10 mg tablet Take (more content not included)...[facility]05-15-2024 Telephone encounter Note* Telephone Encounter - Eileen Ferrera - 11/27/2023 3:02 PM EDT Please review and complete. Will be placed in your in box.Thank you Specialty called [phone] Aggarwal to sign form. [facility]05-15-2024 Miscellaneous Notes* Telephone Encounter - Eileen Ferrera - 11/27/2023 3:02 PM EDT Please review and complete. Will be placed in your in box.Thank you Specialty called [phone] Aggarwal to sign form. documented in this encounterSamaritan North Health Center05-03-2024 Telephone encounter Note * Telephone Encounter - Veronica Chi RN - 11/15/2023 10:26 AM EDT [facility] contacted patient regarding referral for screening colonoscopy. Patient states that she has had her previous scopes done at [facility], and is going to speak with her physician about going closer to home. Patient declined to schedule with us at this time. [facility]05-03-2024 Miscellaneous Notes* Telephone Encounter - Veronica Chi RN - 11/15/2023 10:26 AM EDT [facility] contacted patient regarding referral for screening colonoscopy. Patient states that she has had her previous scopes done at [facility], and is going to speak with her physician about going closer to home. Patient declined to schedule with us at this time. documented in this encounterSamaritan North Health Center05-02-2024 NoteHNO ID: [id number] Author: JAMIE AGGARWAL DO Service: ? Author Type: Physician Type: [...] See Pharmacist's note for furthur details. Jamie Aggarwal [facility]05-02-2024 History of Present illness Narrative* Jamie Aggarwal DO - 11/14/2023 2:44 PM EDT PharmD [...] See Pharmacist's note for furthur details. Jamie Aggarwal DO * Sonia Carrera, [facility] - 11/14/2023 1:37 PM EDT REASON FOR [...] LISPRO (U-100) 100 UNIT/ML SUBCUTANEOUS PEN - 0 - encouraged medication adherence - CONTINUE INSULIN [...] to participate in this patient's care Sonia Carrera Rph The majority of the pharmacy visit (> 50%) was spent counseling and/or coordinating care for thepatient. I spent a total of 25 minutes on the date of the service which included preparing to see the patient, qphc-nd-qwcb patient care, completing clinical documentation, and counseling and educating the patient/family/caregiver. documented in this encounterSamaritan North Health Center05-02-2024 Instructions* Patient Instructions* Sonia Carrera RPh - 11/14/2023 1:47 PM EDT Thank [...] recommendations: - Please call central scheduling at [phone] to schedule mammogram and colonoscopy documented in this encounterSamaritan North Health Center05-02-2024 NoteHNO ID: [id number] Author: SONIA CARRERA RPh Service: ? Author Type: Pharmacist Type: [...] his mother do shopping She does the PositiveID BEDS7: negative Glass of pop x1 per [...] to participate in this patient's care Sonia Carrera Rph The majority of the pharmacy visit (> 50%) was spent counseling and/or coordinating care for the patient. I spent a total of 25 minutes on the date of the service which included preparing to see the patient, otyy-ye-etdn patient care, completing clinical documentation, and counseling and educating the patient/family/caregiver.[facility]04-26-2024 NoteHNO ID: [id number] Author: SONIA CARRERA RPh Service: ? Author Type: Pharmacist Type: Progress Notes Filed: 11/08/2023 14:34 Note Text: Noted; no changes at this time given gaps in information. Sonia Carrera RPh Hemoglobin A1C (POCT) Date Value Ref Range Status 08/30/2023 13.7 (A) 4.3 - 5.6 % Final Comment: Location:[facility], [address] [place] [address], [address] Point of care (POC) Hemoglobin A1c (HGBA1C) [...] specific diabetes management situations: The POC device tobacco sampler provides a normal range of 4.2% to 6.5% for the HGBA1C POC test. However, the [place] Diabetes [employer] guidelines indicate that patients with [...] (e.g. anemia) that alter red blood cell lifespan.[facility]04-26-2024 History of Present illness Narrative* Sonia Carrera RPh - 11/08/2023 2:33 PM EDT Noted; no changes at this time given gaps in information. Sonia Carrera RPh Hemoglobin A1C (POCT) Date Value Ref Range Status 08/30/2023 13.7 (A) 4.3 - 5.6 % Final Comment: Location:[facility], [address], [place], [address] Point of care (POC) Hemoglobin A1c (HGBA1C) [...] specific diabetes management situations: The POC device tobacco sampler provides a normal range of 4.2% to 6.5% for the HGBA1C POC test. However, the [place] Diabetes [employer] guidelines indicate that patients with [...] this time. PCC instructed patient to call [phone] with any questions or concerns. Health leads [...] Screening 09/27/2021 Behavioral Health Screening Never done Printing Sales Representative plan for next outreach: Will follow-up 3 weeks Signature: Jeanie Murphy RN November 08, 2023 documented in this encounterSamaritan North Health Center04-26-2024 NoteHNO ID: [id number] Author: JEANIE MURPHY RN Service: ? Author [...] this time. PCC instructed patient to call [phone] with any questions or concerns. Health leads [...] Screening 09/27/2021 Behavioral Health Screening Never done Printing Sales Representative plan for next outreach: Will follow-up 3 weeks Signature: Jeanie Murphy RN November 07[facility]04-[facility] NotePatient Outreach ([facility]) MICHELLE [id number]) 1965 F Date Time Provider Department 11/08/23 JEANIE MURPHY [facility] During your visit today, we recorded the following information about you: Jeanie Murphy RN 11/08/2023 1:28 PM Signed AG PRIMARY CARE COORDINATION [...] this time. PCC instructed patient to call [phone] with any questions or concerns. Health leads [...] Screening 09/27/2021 Behavioral Health Screening Never done Printing Sales Representative plan for next outreach: Will follow-up 3 weeks Signature: Jeanie Murphy RN November 08, 2023 Sonia Carrera RPh 11/08/2023 2:34 PM Signed Noted; no changes at this time given gaps in information. Sonia Carrera RPh Hemoglobin A1C (POCT) Date Value Ref Range Status 08/30/2023 13.7 (A) 4.3 - 5.6 % Final Comment: Location:[facility], [address] [place] [address], [facility] Point of care (POC) Hemoglobin A1c (HGBA1C) [...] specific diabetes management situations: The POC device tobacco sampler provides a normal range of 4.2% to 6.5% for the HGBA1C POC test. However, the [place] Diabetes [employer] guidelines indicate that patients with [...] LPN - Fully Assessed Reason for Visit: Pharmacy Benefits Coordinator Chronic Care [3612] Cmt: PCC follow up Prescriptions as of [...] flash glucose sensor (FREESTY (more content not included)...[facility]04-23-2024 Telephone encounter Note* Telephone Encounter - Eileen Ferrera - 11/05/2023 2:14 PM EDT Please review and complete. Will be placed in your temp file.Thank you [facility]04-23-2024 Miscellaneous Notes* Telephone Encounter - Eileen Ferrera - 11/05/2023 2:14 PM EDT Please review and complete. Will be placed in your temp file.Thank you documented in this encounterSamaritan North Health Center04-18-2024 Miscellaneous Notes* Telephone Encounter - Cristiane Montanez - 10/31/2023 8:23 AM EDT Referral to GASTROENTEROLOGY entered into the [facility] portal on 10/31/2023. Confirmation number [id number]. documented in this encounterSamaritan North Health Center04-17-2024 NoteHNO ID: [id number] Author: JAMIE AGGARWAL, DO Service: ? Author Type: Physician Type: [...] See Pharmacist's note for furthur details. Jamie Aggarwal [facility] History of Present illness Narrative* Jamie Aggarwal DO - 10/30/2023 4:45 PM EDT PharmD [...] See Pharmacist's note for furthur details. Jamie Aggarwal DO * Sonia Carrera [facility] - 10/30/2023 2:18 PM EDT REASON FOR [...] to metformin Payor: [place] MEDICAID / Plan: [facility] MEDICAID [facility] / Product Type: Medicaid / 24 hour [...] to participate in this patient's care Sonia Carrera RPh The majority of the pharmacy visit (> 50%) was spent counseling and/or coordinating care for thepatient. Sbco-ql-jdjk time was 20 minutes. documented in this encounterSamaritan North Health Center04-17-2024 Miscellaneous Notes* Addendum Note - Williams Rubin MD - 10/30/2023 4:10 PM EDTAddended by: WILLIAMS RUBIN on: 10/30/2023 04:10 PM Modules accepted: Orders documented in this encounterSamaritan North Health Center04-17-2024 Instructions* Patient Instructions* Sonia Carrera RPh - 10/30/2023 2:24 PM EDT Thank [...] intake - Please call central scheduling at [phone] to schedule mammogram and colonoscopy Other recommendations: - continue using freestyle lance If your sensor reads errors or your sensor falls off, please call: . Freestyle lance will replace any sensor that malfunctions. Please keep this sensor to send back to the tobacco sampler. Scan sensor at least every 8 hours. documented in this encounterSamaritan North Health Center04-17-2024 NoteHNO ID: [id number] Author: SONIA CARRERA RPh Service: ? Author Type: Pharmacist Type: [...] aspirin: Yes Prior intolerance to metformin Payor: [facility] MEDICAID / Plan: [place] [employer] MEDICAID OF [...] Z71.89 As above Tere (more content not included)...[facility]04-09-2024 Miscellaneous Notes* Telephone Encounter - Maria A Velarde LPN - 10/22/2023 4:25 PM EDT Pharmacy [...] Itching Simvastatin Other: See Comments myalgia (home) [phone] (work) Last Office Visit Date: 09/12/2023 Last [facility] Health Visit: Visit date not found Future Appointment: 10/30/2023 The patients preferred pharmacy has been captured for this encounter? yes Request is for script(s) to be escript to pharmacy. Maria A Velarde LPN documented in this encounterSamaritan North Health Center03-24-2024 Discharge summary Author Jose R Phillips [facility] October 06, 2023 3:51pm Note Date/Time October 06, 2023 1:5 5pm [facility] Medical Records Department [address] [place] [address] Emergency Department Summary 10/06/23 MR#: [id number] Acct: [id number] Name: MICHELLE JULES #:[id number] : 1965 58 From: Jose R [...] not bleeding now thatEMS wrapped it tightly. [facility] Medical History Arthritis Diabetes type 2, controlled [...] Last Taken Unknown] FreeStyle Lance 14 Day [place]ristow (flash glucose scanning reader) #1 ea 08/04/18 [...] check her blood counts. She has a green marketing specialist in [facility] she already has an appointment with. Discharge [...] x14 days (DME) FreeStyle Lance 14 Day [place]ristow misc See Dose Instructions .ROUTE .MEDSUPPLY Qty: [...] Primary Care Provider: Care Physician,No Primary Referrals: [facility] Doctor,Out of [Non-Staff] - Keep Sarah appointment (with your green marketing specialist; return to the ER if any issues [...] your Primary Care Provider. Call [facility] ([phone]) or report to the closest Emergency Room. Call 911 if necessary. 10/06/23 1551 <Electronically signed by Jose R Phillips MD> Cosigner Signature (if applicable): CC: No Primary Care Physician ~ Signed [facility] Work Phone: 1(355) 725-207903-08-2024 NoteHNO ID: [id number] Author: SONIA CARRERA RPh Service: ? Author Type: Pharmacist Type: Progress Notes Filed: 09/20/2023 14:29 Note Text: Aware; nursing working on PA. Addition of GLP1 will add with hyperglycemia. Recent change to toujeo so will not make adjustments at this time. Sonia Carrera [facility]03-08-2024 History of Present illness Narrative* Sonia Carrera RPh - 09/20/2023 2:28 PM EST Aware; nursing working on PA. Addition of GLP1 will add with hyperglycemia. Recent change to toujeoso will not make adjustments at this time. Sonia Carrera RPh * Jeanie Murphy RN - 09/20/2023 [...] toujeo. Patient waiting on prior auth for [employer] and [employer] Lance. PCC reviewed each diabetic medication and how to take. Patient repeated back. PCC instructed patient to call [phone] with any questions or concerns. Health leads [...] Mammogram Screening 12/03/2018 Colorectal Cancer Screening 09/27/2021 Printing Sales Representative plan for next outreach: Will follow-up 2 weeks Signature: Jeanie Murphy RN September 20, 2023 documented in this encounterSamaritan [facility] Center03-08-2024 NoteHNO ID: [id number] Author: JEANIE MURPHY RN Service: ? Author [...] repeated back. PCC instructed patient to call [phone] with any questions or concerns. Health leads [...] Mammogram Screening 12/03/2018 Colorectal Cancer Screening 09/27/2021 Printing Sales Representative plan for next outreach: Will follow-up 2 weeks Signature: Jeanie Murphy RN [facility] 19[facility]03[facility] NotePatient Outreach ([facility]) MICHELLE JULES ([id number]) 1965 F Date Time Provider Department 09/20/23 JEANIE MURPHY [facility] During your visit today, we recorded the following information about you: Jeanie Murphy RN 09/20/2023 1:28 PM Signed PRIMARY CARE COORDINATION FOLLOW-UP [...] repeated back. PCC instructed patient to call [phone] with any questions or concerns. Health leads [...] Mammogram Screening 12/03/2018 Colorectal Cancer Screening 09/27/2021 Printing Sales Representative plan for next outreach: Will follow-up 2 weeks Signature: Jeanie Murphy RN September 20, 2023 Sonia Carrera RPh 09/20/2023 2:29 PM Signed Aware; nursing working on PA. Addition of GLP1 will add with hyperglycemia. Recent change to toujeo so will not make adjustments at this time. Sonia Carrera RPh Allergies As of Date: 09/20/2023 Noted Allergy Reaction ADHESIVE TAPE (ROSINS) 03/27/2006 9 - Itching LATEX, NATURAL RUBBER 09/09/2018 2 - Rash METFORMIN 07/22/2018 14 - Other: See Comments Comments: Caused arrhythmia issues SEASONAL ALLERGIES 03/01/2023 9 - Itching SIMVASTATIN 11/04/2012 14 - Other: See Comments Comments: myalgia Date Reviewed: 09/12/2023 Reviewed by: Georgette Ness LPN - Fully Assessed Reason for Visit: Pharmacy Benefits Coordinator Chronic Care [3612] Cmt: PCC follow up Prescriptions as of [...] by mouth twice daily as needed - acetylcyst/nnsspdY95/levomefol (METAFOLBIC PLUS ORAL) Take by mouth. - furosemide (LASIX) 40 mg tablet Take 1 tablet by mouth once daily. - cetirizine (ZYRTEC) 10 mg tablet Take 1 tablet by mouth once daily as needed (for itching, sneezing or runny nose). - losartan (COZAAR) 25 mg tablet (Discontinued) Take 1 tablet by mouth once daily. - blood sugar diagnostic (AudioMicro ULTRA TEST) test strip USE TO TEST [...] foot [M67.471] 09/09/2015 Biventric (more content not included)...[facility]03-07-2024 Miscellaneous Notes* Telephone Encounter - Maria A Velarde LPN - 09/19/2023 10:52 AM EST Prior authorization for Victoza has been submitted via telephone ([employer]). Reference # [id number]. Awaiting determination. documented in this encounterSamaritan [facility] Health Center03-07-2024 Miscellaneous Notes* Telephone Encounter - Maria A Velarde LPN - 09/19/2023 10:50 AM EST Prior authorization for Freestyle Lance 2 sensor has been submitted via [employer]. Awaiting determination. documented in this encounterSamaritan North Health Center03-01-2024 NoteHNO ID: [id number] Author: JAMIE AGGARWAL DO Service: ? Author Type: Physician Type: [...] See Pharmacist's note for furthur details. Jamie Aggarwal [facility]03[facility] History of Present illness Narrative* Jamie Aggarwal DO - 09/13/2023 8:24 PM EST PharmD [...] See Pharmacist's note for furthur details. Jamie Aggarwal DO * Sonia Carrera RPh - 09/13/2023 3:26 PM EST Called pharmacy regarding insurance coverage - toujeo covered, $15 per month supply - freestyle lance sensor, needs PA - nicci, efra PA Will message nursing for assistance. Sonia Carrera RPh Time spent: 5 minutes * Sonia Carrera RPh - 09/12/2023 3:51 PM EST REASON [...] insurance would not pay for it Payor: [employer] MEDICAID / Plan: [employer] [place] [employer] [place] / Product Type: Medicaid / Previously used [...] aspirin: Yes Prior intolerance to metformin Payor: [employer] MEDICAID / Plan: [employer] MEDICAID OF [place] / Product Type: Medicaid [...] to participate in this patient's care Sonia Carrera RPh The majority of the pharmacy visit (> 50%) was spent counseling and/or coordinating care for thepatient. Ibgu-la-shjd time was 25 minutes. documented in this encounterSamaritan North Health Center03-01-2024 NoteHNO ID: [id number] Author: SONIA CARRERA RPh Service: ? Author Type: Pharmacist Type: Progress Notes Filed: 09/13/2023 15:33 Note Text: Called pharmacy regarding insurance coverage - toujeo covered, $15 per month supply - freestyle lance sensor, needs PA - efra grajeda PA Will message nursing for assistance. Sonia Carrera RPh Time spent: 5 minutes[facility]02-29-2024 Instructions* Patient Instructions* Sonia Carrera RPh - 09/12/2023 4:07 PM EST Thank you for letting us care for you today! Below is a brief summary of our appointment. Please consider going to our food pantry after your visit. The pantry is located in the [facility]. To get there: Continue straight from the [facility] desk to the elevators Ride the elevators to the first floor Continue straight to the main entrance of the [facility] building Walk outside to the [facility] and [facility] Enter the [facility] doors Turn to the left of the doors Continue down the mendoza until you see adiology Turn left at the radiology doors Continue straight until the hallway ends Turn right and the pantry is on the left - knock on the door to enter Phone for the pantry: [phone] Hours of operation: Mondays: 9am to 12pm Tu/: 9am to 12pm / 1pm to 3pm Wed/Sat: 9am to 12pm / 1pm to 2pm documented in this encounterSamaritan North Health Center02-29-2024 NoteHNO ID: [id number] Author: SONIA CARRERA RPh Service: ? Author Type: Pharmacist Type: [...] for it Payor: [employer] MEDICAID / Plan: CAR[facility]OS [facility] MEDICAID [facility] / Product Type: Medicaid / Previously used [...] aspirin: Yes Prior intolerance to metformin Payor: [facility] MEDICAID / Plan: [facility] MEDICAID [facility] / Product Type: Medicaid / 24 hour [...] to participate in this patient's care Sonia Carrera [facility] ?The majority of the pharmacy visit (> 50%) was spent counseling and/or coordinating care for the patient. Mqwa-jr-jfqz time was 25 minutes.?[facility]02-23-2024 NoteHNO ID: [id number] Author: JEANIE MURPHY RN Service: ? Author Type: Registered Nurse Type: Progress Notes Filed: 09/06/2023 12:46 Note Text: PRIMARY CARE COORDINATION QUICK NOTE Provider Action/FYI Patient identified by name and date . PCC attempted PCC follow up. PCC unable to leave message. PCC will attempt to contact patient again at a later date. PCC instructed patient to call [phone] with any questions or concerns. Jeanie Murphy RN September 06, 2023 12:44 [facility]02-23-2024 History of Present illness Narrative* Jeanie Murphy RN - 09/06/2023 12:41 PM EST PRIMARY CARE COORDINATION QUICK NOTE Provider Action/FYI Patient identified by name and date . PCC attempted PCC follow up. PCC unable to leave message. PCC will attempt to contact patient againat a later date. PCC instructed patient to call [phone] with any questions or concerns. Jeanie Murphy RN September 06, 2023 12:44 PM documented in this encounterSamaritan North Health Center02-23-2024 NotePatient Outreach (AGACM) MICHELLE JULES ([id number]) 1965 F Date Time Provider Department 09/06/23 [...] later date. PCC instructed patient to call [phone] with any questions or concerns. Jeanie Murphy [...] MD - Fully Assessed Reason for Visit: Pharmacy Benefits Coordinator Chronic Care [3615] Cmt: Attempted PCC follow up Prescriptions as [...] 270 days. - flash glucose sensor (FREESTYLE LNACE 2 SENSOR) kit Use to check blood sugar before meals and at bedtime - Docusate Sodium (STOOL SOFTENER) 100 mg tab Take 1 capsule by mouth twice daily as needed - acetylcyst/ivizdvL39/levomefol (METAFOLBIC PLUS ORAL) Take by mouth. - [...] mouth once daily. - blood sugar diagnostic (AudioMicro ULTRA TEST) test strip USE TO TEST [...] 05/20/2023 Encounter Status:Closed by JEANIE MURPHY on 09/06/23[facility] 08-30-2023 NoteHNO ID: [id number] Author: GIFTY THORNTON DO Service: ? Author Type: Physician Type: [...] resident's note for further details. Gifty Thornton [facility]02-16-2024 History of Present illness Narrative* Gifty Thornton [...] from the original note were not included. [facility] [address] [facility] / [address] [place], [place] [address] Visit Date: August 30, 2023 Name: Michelle Jules Date of : 1965 MRN/E #: [id number] Subjective Patient is a 58 year old [...] - Patient is stress eating : Watching ia-xiebck-wb-law and real mom in hospital.mom hospitalized and she is stress eating peanut butter sugar free honey in it and eats it with crackers and a root beer float, bananas - has met with Dr. Carrera - Her insurance won't cover CGM - [...] increased from 5 mg - CONSULT TO [facility] (PPG ONLY) - Will [...] which included preparing to see the patient, wsob-ii-bfow patient care, completing clinical documentation, obtaining and/or reviewing separately obtained history, performing a medically appropriate examination, counseling and educating the pat ient/family/caregiver, ordering medications, tests, or procedures, communicating with other HCPs (not separately reported), independently interpreting results (not separately reported), and communicating results to the patient/family/caregiver. Provider: Williams Rubin MD Date: August 30, 2023 Time: 7:04 AM Williams Rubin Family Medicine, PGY-I [facility] documented in this encounterSamaritan North Health Center02-16-2024 NoteHNO ID: [id number] Author: RUBIN, WILLIAMS, MD Service: ? Author Type: Resident Type: Progress Notes Filed: 08/30/2023 21:23 Note Text: [facility] [address] [facility] / [address] [place], [place] [address] Visit Date: August 30, 2023 Name: Michelle Jules Date of : 1965 MRN/E #: [id number] Subjective Patient is a 58 year old [...] - Patient is stress eating : Watching od-idvnup-dw-law and real mom in hospital.mom hospitalized and she is stress eating peanut butter sugar free honey in it and eats it with crackers and a root beer float, bananas - has met with Dr. Carrera - Her insurance won't cover CGM - [...] neuropathy, with long-term current use of insulin ([facility]) - ICD9: 250.60, 357.2, V58.67, ICD10: E11.40, [...] increased from 5 mg - CONSULT TO [facility] (PPG ONLY) - Will have close follow-up. - Consider referral to endocrinology 2. Anxie (more content not included)...[facility]02-01-2024 NoteHNO ID: [id number] Author: WILLIAMS RUIBN MD Service: ? Author Type: Resident Type: Progress Notes Filed: 08/15/2023 18:36 Note Text: Thank you! Noted. Williams Rubin [facility]01-29-2024 NoteHNO ID: [id number] Author: JEANIE MURPHY RN Service: ? Author Type: Registered Nurse Type: Progress Notes Filed: 08/12/2023 14:24 Note Text: PRIMARY CARE COORDINATION QUICK NOTE Provider Action/FYI Patient identified by name and date . PCC contacted patient and made her aware of increase of Victoza to 1.8 mg daily. Patient has no questions or concerns. Jeanie Murphy RN August 12, 2023 2:24 [facility]01-26-2024 NoteHNO ID: [id number] Author: JEANIE MURPHY RN Service: ? Author Type: Registered Nurse Type: Progress Notes Filed: 08/09/2023 14:40 Note Text: PRIMARY CARE COORDINATION QUICK NOTE Provider Action/FYI Patient identified by name and date . PCC attempted to contact patient with Pharm D note. PCC left message with pharm D information. PCC asked patient to call PCC back at [phone] to confirm she received the information. Jeanie Murphy RN August 09, 2023 2:40 [facility]01-26-2024 NoteHNO ID: [id number] Author: SONIA CARRERA [facility] Service: ? Author Type: Pharmacist Type: Progress Notes Filed: 08/09/2023 14:27 Note Text: Victoza last increased 06/2023. Please assess if patient is having s/s of N/V/C/D. If not, can increase to 1.8 mg daily (max dose). Sonia Carrera [facility]01-26-2024 NoteHNO ID: [id number] Author: JEANIE MURPHY RN Service: ? Author [...] follow up. PCC instructed patient to call [phone] with any questions or concerns. Health leads [...] Colorectal Cancer Screening 09/27/2021 Depression Assessment 07/15/2023 Printing Sales Representative plan for next outreach: Will follow-up 3 weeks Signature: Jeanie Murphy RN [facility] 09[facility] NotePatient Outreach ([facility]) MICHELLE JULES ([id number]) 1965 F Date Time Provider Department 08/09/23 JEANIE MURPHY [facility] During your visit today, we recorded the following information about you: Jeanie Murphy RN 08/09/2023 2:27 PM Signed PRIMARY CARE COORDINATION FOLLOW-UP NOTE [...] follow up. PCC instructed patient to call [phone] with any questions or concerns. Health leads [...] Colorectal Cancer Screening 09/27/2021 Depression Assessment 07/15/2023 Printing Sales Representative plan for next outreach: Will follow-up 3 weeks Signature: Jeanie Murphy RN August 09, 2023 Sonia Carrera RPh 08/09/2023 2:27 PM Signed Victoza last increased 06/2023. Please assess if patient is having s/s of N/V/C/D. If not, can increase to 1.8 mg daily (max dose). Marcos Giron David RN 08/09/2023 2:40 PM Signed PRIMARY CARE COORDINATION QUICK NOTE Provider Action/FYI Patient identified by name and date . PCC attempted to contact patient with Pharm D note. PCC left message with pharm D information. PCC asked patient to call PCC back at [phone] to confirm she received the information. Jeanie [...] myalgia Date Reviewed: 05/20/2023 Reviewed by: Lilli Rascon LPN - Fully Assessed Reason for Visit: Pharmacy Benefits Coordinator Chronic Care [3612] Cmt: PCC follow up Prescriptions as of 08/15/2023 - [...] by mouth twice daily as needed - acetylcyst/tupoznN72/levomefol (METAFOLBIC PLUS ORAL) Take by mouth. - [...] sneezing or runny no (more content not included)...[facility]01-05-2024 NoteHNO ID: [id number] Author: JEANIE MURPHY RN Service: ? Author [...] this time. PCC instructed patient to call [phone] with any questions or concerns. Health leads [...] Colorectal Cancer Screening 09/27/2021 Depression Assessment 07/15/2023 Printing Sales Representative plan for next outreach: Will follow-up 3 weeks Signature: Jeanie Murphy RN July 19[facility]01[facility] NotePatient Outreach (AGACM) MICHELLE JULES ([id number]) 1965 F Date Time Provider Department 07/19/23 [...] this time. PCC instructed patient to call [phone] with any questions or concerns. Health leads [...] Colorectal Cancer Screening 09/27/2021 Depression Assessment 07/15/2023 Printing Sales Representative plan for next outreach: Will follow-up 3 [...] myalgia Date Reviewed: 05/20/2023 Reviewed by: Lilli Rascon LPN - Fully Assessed Reason for Visit: Pharmacy Benefits Coordinator Chronic Care [8263] Cmt: [facility] follow up Prescriptions as of 07/19/2023 - [...] 1 capsule by mouth once daily. - acetylcyst/smdrnbZ94/levomefol (METAFOLBIC PLUS ORAL) Take by mouth. - [...] daily at bedtime. - blood sugar diagnostic (AudioMicro ULTRA TEST) test strip USE TO TEST [...] diab*12/21/2015 Restless leg s (more content not included)...[facility] 2023 NoteHNO ID: [id number] Author: Williams Rubin MD Service: ? Author [...] I am routing the encounter to the front end web designer Yes I am sending a mychart note to the patient. No No coverage found. : the patient will be contacted to notify them they need a Colorectal Cancer Screen I have placed the following orders: Williams Rubin MD 2023 11:51 [facility] NoteHNO ID: [id number] Author: Jeanie Murphy RN Service: ? Author Type: Registered Nurse Type: Progress Notes Filed: 06/27/2023 1:35 PM Note Text: PRIMARY CARE COORDINATION QUICK NOTE Provider Action/FYI Patient identified by name and date . PCC tried to contact patient for patient outreach. PCC left phone number [phone] for patient to contact PCC. Jeanie Murphy RN June 27, 2023 1:34 [facility]12-14-2023 History of Present illness Narrative* Jeanie Murphy RN - 06/27/2023 1:34 PM EST PRIMARY CARE COORDINATION QUICK NOTE Provider Action/FYI Patient identified by name and date . PCC tried to contact patient for patient outreach. PCC left phone number [phone] for patient to contact PCC. Jeanie Murphy RN June 27, 2023 1:34 PM documented in this encounterSamaritan [facility] Health Center12-14-2023 NotePatient Outreach (AGACM) MICHELLE JULES ([id number]) 1965 F Date Time Provider Department 06/27/23 JEANIE MURPHY During your visit today, we recorded the following information about you: Jeanie Murphy RN 06/27/2023 1:35 PM Signed PRIMARY CARE COORDINATION QUICK NOTE Provider Action/FYI Patient identified by name and date . PCC tried to contact patient for patient outreach. PCC left phone number [phone] for patient to contact PCC. Jeanie Murphy [...] myalgia Date Reviewed: 05/20/2023 Reviewed by: Lilli Rascon LPN - Fully Assessed Reason for Visit: Pharmacy Benefits Coordinator Chronic Care [3612] Cmt: Attempted PCC follow [...] 1 capsule by mouth once daily. - acetylcyst/rkxqgzW81/levomefol (METAFOLBIC PLUS ORAL) Take by mouth. - [...] daily at bedtime. - blood sugar diagnostic (AudioMicro ULTRA TEST) test strip USE TO TEST [...] 05/20/2023 Encounter Status:Closed by JEANIE MURPHY on 06/27/23[facility] 06-26-2023 Miscellaneous Notes* Telephone Encounter - Faisal [...] 15, 2023 and she has worked with delinquency prevention social worker and patient outreach to get [...] that is not .. Appointment with Dr. Carrera -She is not able to make her appointment with Dr. Carrera on 07/03/2023 because she will not have insurance coverage for this visit. She says she would like to reschedule to see Dr. Carrera in July. I will contact Dr. Carrera to let her know and will let our front end web designer know as well. Vaccines -She received her COVID booster this week and I documented this in the chart. documented in this encounterSamaritan North Health Center12-07-2023 Miscellaneous Notes* Telephone Encounter - Maria A Velarde LPN - 06/20/2023 3:46 PM EST Prior authorization for Basaglar kwikpen 100unit/ml has been submitted via Coveri[employer]OSPH[employer]. Awaiting determination. documented in this encounterSamaritan North Health Center12-06-2023 NoteHNO ID: [id number] Author: Sonia Carrera RPh Service: ? Author Type: Pharmacist Type: [...] will also meet financial cut offs. Sonia Carrera [facility]12-06-2023 History of Present illness Narrative* Sonia Carrera RPh - 06/19/2023 10:17 AM EST Unfortunately, this is the least expensive option for insulin if no insurance at this time. Other programs have insulin cost ~$100. Forwarding to to see if she can contact patient regarding PAP for basaglar - patient would qualify because she is without insurance. Likely will also meet financialcut offs. Sonia Carrera RPh * Jeanie Murphy RN - 06/18/2023 [...] her until the new year. PCC contacted [facility] to confirm patient couldnot get insulin and they confirmed that the medication was coming up as Not Eligible for Date of Service. PCC contacted [employer] to make sure there was no errors in patient's coverage and [employer] confirmed patient's insurance was terminated on 06/13 2023. The reference number for thiscal was [id number]. Patient aware she has Pharm D appointment on 07/03/2023 PCC instructed patient to call [phone] with any questions or concerns. Health leads [...] Colorectal Cancer Screening 09/27/2021 Covid-19 Vaccine 03/15/2023 Printing Sales Representative plan for next outreach: Will follow-up 1 week Signature: Jeanie Murphy RN June 18, 2023 documented in this encounterSamaritan North Health Center12-05-2023 NoteHNO ID: [id number] Author: Jeanie Murphy RN Service: ? Author [...] her until the new year. PCC contacted [facility] to confirm patient could not get insulin and they confirmed that the medication was coming up as Not Eligible for Date of Service. PCC contacted [employer] to make sure there was no errors in patient's coverage and [employer] confirmed patient's insurance was terminated on 06/13 2023. The reference number for this call was [id number]. Patient aware she has Pharm D appointment on 07/03/2023 PCC instructed patient to call [phone] with any questions or concerns. Health leads [...] Colorectal Cancer Screening 09/27/2021 Covid-19 Vaccine 03/15/2023 Printing Sales Representative plan for next outreach: Will follow-up 1 week Signature: [facility] Murphy RN [facility] 18[facility] Miscellaneous Notes* Telephone Encounter - Maria A Martinez - 06/18/2023 10:48 AM EST Patient rescheduled for 07/03/23 with Willis Espinoza * Telephone Encounter - Maria A Martinez - 06/18/2023 10:40 AM EST ----- Message from Delia Bright sent at 06/18/2023 10:09 AM EST ----- [address] [place] [address]/[facility]/Patient wants to schedule an appointment Subject Line Format: Medicine / Homar Vasques MD / [Issue] Select Department Name For Pool Routing Assistance: [facility] AG ACC CFM => AG [facility] CFM APPT CTR TRIAGE POOL [[id number]] Patient: Michelle Jules Date of : 1965 Primary Care Provider: Homar aVsques MD The reason I am contacting the office is: Restricted Scheduling - Patient is requesting a call backfrom [facility] to schedule an appointment - follow up after 4 weeks. Patient missed their appt on 05/01/23 and they would like to reschedule. Please get in touch with them. Thank you! Person calling if other than patient: N/A Best contact number: [phone] Thank you, Delia Bright June 18, 2023 10:09 AM documented in this encounterSamaritan North Health Center12-05-2023 NotePatient Outreach (AGACM) MICHELLE JULES ([id number]) 1965 F Date Time Provider Department 06/18/23 JEANIE MURPHY [facility] During your visit today, we recorded the following information about you: Jeanie Murphy RN 06/19/2023 10:18 AM Signed AG PRIMARY CARE COORDINATION FOLLOW-UP [...] her until the new year. PCC contacted [facility] to confirm patient could not get insulin and they confirmed that the medication was coming up as Not Eligible for Date of Service. PCC contacted [employer] to make sure there was no errors in patient's coverage and [employer] confirmed patient's insurance was terminated on 06/13 2023. The reference number for this call was [id number]. Patient aware she has Pharm D appointment on 07/03/2023 PCC instructed patient to call [phone] with any questions or concerns. Health leads [...] Colorectal Cancer Screening 09/27/2021 Covid-19 Vaccine 03/15/2023 Printing Sales Representative plan for next outreach: Will follow-up 1 week Signature: Jeanie Murphy RN June 18, 2023 Sonia Carrera RPh 06/19/2023 10:18 AM Signed Unfortunately, this is the least expensive option for insulin if no insurance at this time. Other programs have insulin cost ~$100. Forwarding to to see if she can contact patient regarding PAP for basaglar - patient would qualify because she is without insurance. Likely will also meet financial cut offs. Sonia Carrera RPh Allergies As of Date: 06/18/2023 Noted Allergy Reaction ADHESIVE TAPE (ROSINS) 03/27/2006 9 - Itching LATEX, NATURAL RUBBER 09/09/2018 2 - Rash METFORMIN 07/22/2018 14 - Other: See Comments Comments: Caused arrhythmia issues SEASONAL ALLERGIES 03/01/2023 9 - Itching SIMVASTATIN 11/04/2012 14 - Other: See Comments Comments: myalgia Date Reviewed: 05/20/2023 Reviewed by: Lilli Rascon LPN - Fully Assessed Reason for Visit: Pharmacy Benefits Coordinator Chronic Care [3612] Cmt: PCC follow up Prescriptions as of 06/19/2023 - [...] 1 capsule by mouth once daily. - acetylcyst/crfweiK44/levomefol (METAFOLBIC PLUS ORAL) Take by mouth. - [...] daily at bedtime. - blood sugar diagnostic (ONETOUCH ULTRA TEST) test strip USE TO TEST BLOOD SUGAR THREE TIMES A DAY - aspirin, enteric coated (ECOT (more content not included)...[facility]12-04-2023 Miscellaneous Notes* Telephone Encounter - Williams Rubin MD - 06/17/2023 5:46 PM ESTSummary: Persistant Hyperglycemia I called patient regarding fasting sugars staying at 300-400s She states: - She would like all meds sent to [facility] - Ran out of long acting [...] holding - Will contact [facility] Pharmacist Dr. Carrera for her recommendation of medication and CGM use. - Will contact Dr. Vasques for recommendation of her medication for glucose control as well. Williams Rubin MD documented in this encounterSamaritan [facility]12-01-2023 Miscellaneous Notes* Telephone Encounter - Hossein Alexander LPN - 06/14/2023 12:22 PM EST Patient [...] as well. Please advise documented in this encounterSamaritan North Health Center11-07-2023 Miscellaneous Notes* Telephone Encounter - Williams Rubin MD - 05/21/2023 8:53 PM EST Addressed during visit on 05/20/23. Williams Rubin MD * Telephone Encounter - Tamica Beatty LPN - 04/15/2023 2:25 PM EDT Pt calling and inquiring about her Ozempic DENIAL. Please advise. documented in this encounterSamaritan North Health Center11-07-2023 NoteHNO ID: [id number] Author: Jamie Aggarwal, DO Service: ? Author Type: Physician Type: [...] See resident's note for furthur details. Jamie Aggarwal, [facility]11-06-2023 NoteHNO ID: [id number] Author: Williams Rubin MD Service: ? Author Type: Resident Type: Progress Notes Filed: 05/21/2023 3:58 PM Note Text: [facility] [address] [place] [address] [facility] [address] [place], [place] [address] Visit Date: May 19, 2023 Name: Michelle Jules Date of : 1965 MRN/E #: [id number] Subjective Patient is a 57 year old [...] corn, salads - Once/week exercising. Caregiver for [id number] Inadequate control of diabetes despite documented complaint [...] General: No focal de (more content not included)...[facility] 05-06-2023 Miscellaneous Notes* Telephone Encounter - Faisal Patel - 05/06/2023 4:01 PM EDT Called pt and message came up that the phone can not go through. Pt missed 05/01 pharm appt. Will send letter Faisal Patel documented in this encounterSamaritan North Health Center10-18-2023 Miscellaneous Notes* Telephone Encounter - Sonia Carrera RPh - 05/01/2023 2:48 PM EDT Patient no showed to appt today. Unable to reach via telephone. See other note from pharmD. Letter to be sent. HbA1c ordered Hemoglobin A1C (POCT) Date Value Ref Range Status 01/22/2023 14.7 (A) 4.2 - 5.6 % Final Comment: Location:[facility], [address] [place] [address], [address] Point of care (POC) Hemoglobin A1c (HGBA1C) [...] specific diabetes management situations: The POC device tobacco sampler provides a normal range of 4.2% to 6.5% for the HGBA1C POC test. However, the [place] [employer] guidelines indicate that patients with [...] neuropathy, with long-term current use of insulin ([facility]) -ICD9: 250.60, 357.2, V58.67, ICD10: E11.40, Z79.4 - HGB A1C Sonia Carrera RPh documented in this encounterSamaritan North Health Center10-06-2023 History of Present illness Narrative* Jeanie Murphy RN - 04/19/2023 11:27 AM EDT PRIMARY CARE COORDINATION QUICK NOTE Provider Action/FYI Patient identified by name and date . PCC attempted to contact patient. Phone number not working. PCC will attempt to contact patient again at a later date. Jeanie Murphy RN April 19, 2023 11:32 AM documented in this encounterCleveland [id number] History of Present illness Narrative* Williams Rubin [...] in any hospital and/or ED outside the [facility] in the Past 6 months? No [...] Lightheadedness or dizziness with standing; Incontinence Jeanie Murphy, RN documented in this encounterSamaritan North Health Center09-20-2023 Miscellaneous Notes* Telephone Encounter - Maria A Velarde LPN - 04/03/2023 10:58 AM EDT Prior authorization for Ozempic 2 mg/ 3 mL pen has been submitted via [employer]. Awaiting determination. documented in this encounterSamaritan North Health Center09-15-2023 Instructions* Patient Instructions* Jay Her DO - 03/29/2023 3:30 PM EDT -Increase to glargine 45 units in the morning and 45 units in the evening -STOP taking zoloft (sertraline), and START taking cymbalta (duloxetine) -STOP enalapril documented in this encounterSamaritan North Health Center09-15-2023 History of Present illness Narrative* Jay Her DO - 03/29/2023 2:39 PM EDT Images from the original note were not included. [facility] 1 [facility] [address] Floor [place] [address] Visit Date: March 29, 2023 Name: Michelle Jules Date of : 1965 MRN/E #: [id number] Subjective Patient is a 57 year old [...] neuropathy, with long-term current use of insulin ([facility]) -ICD9: 250.60, 357.2, V58.67, ICD10: E11.40, Z79.4 [...] neuropathy. Jay Her DO Family Medicine, PGY-III [facility] documented in this encounterSamaritan North Health Center09-12-2023 Miscellaneous Notes* Telephone Encounter - Faviola Sun LPN - 03/26/2023 10:54 AM EDT Pharmacy [...] Itching Simvastatin Other: See Comments myalgia (home) [phone] (work) Last Office Visit Date: 03/15/2023 Last [facility] Visit: Visit date not found Future Appointment: 03/29/2023 The patients preferred pharmacy has been captured for this encounter? yes Request is for script(s) to be escript to pharmacy. Faviola Sun LPN documented in this encounterSamaritan North Health Center09-11-2023 History of Present illness Narrative* Williams Rubin MD - 03/25/2023 12:31 PM EDTSummary: Referral to [facility] Pharm Making referral to Dr. Carrera M Pharm for diabetes management. Diabetes is uncontrolled. Patienthas appointment with [facility] on 03/29/23. Williams Rubin MD documented in this encounterSamaritan North Health Center09-01-2023 Nurse Note* Lilli Rascon LPN - 03/15/2023 3:45 PM EDT Immunization History - pneumococcal (PCV20) vaccine, 20 valent (PREVNAR 20) (Given) - Date: 03/15/2023 - Lot #: [id number] - Dose: 0.5 mL - Site: Left deltoid - Radio Frequency Engineer: Heidy - Given By: LILLI RASCON - Expiration Date: 05/14/2024 Immunizations were given as ordered. Vaccination information sheet(s) given. Lilli Rascon LPN documented in this encounterSamaritan North Health Center09-01-2023 Instructions* Patient Instructions* Manny Shields MD - 03/15/2023 3:29 PM EDT Start [...] high blood pressure. As reported in the [place] Journal of Medicine, the DASH diet, which [...] prepared soups. 7.) Shake em Up! Create servicenow administrator developer drinks. Start with a cup of low-fat [...] with shredded low-fat cheese. documented in this encounterSamaritan North Health Center09-01-2023 History of Present illness Narrative* Manny Shields MD - 03/15/2023 2:40 PM EDT Images from the original note were not included. [facility] [address] [place] [address] [facility] Center / [address] [place], [place] [address] Visit Date: March 14, 2023 Name: Michelle Jules Date of : 1965 MRN/E #: [id number] Chief Complaint: No chief complaint on file. [...] SOFTENER) 100 mg tab Take by mouth. acetylcyst/fhqhztW95/levomefol (METAFOLBIC PLUS ORAL) Take by mouth. Pramipexole 0.75 mg tablet Take 1 tablet by mouth daily at bedtime. (Patient taking differently: Take 1 mg by mouth daily at bedtime.) blood sugar diagnostic (ONETOUCH ULTRA TEST) test [...] before meals and at bedtime. Blood-Glucose Meter (ONETOUCH ULTRA2) monitoring kit 1 [...] 4.00 k/uL Monocytes % 7.4 % Abs Coal 0.43 <0.87 k/uL Eosinophils % 1.5 % [...] long-term current use of insulin (HCC) - poorly controlled, recent A1C 14.7 - recently seen by [facility] farzad Nina insulin - patient interested in Ozempic - [...] (around 03/29/2023) for DM2, HTN. Provider: Manny Shields MD Date: March 14, 2023 Time: 10:04 PM documented in this encounterSamaritan North Health Center08-29-2023 Miscellaneous Notes* Telephone Encounter - Lilli Rascon LPN - 03/12/2023 10:44 AM EDT Pharmacy faxed requesting the following refill Refill(s) Requested: Requested Prescriptions Pending Prescriptions Disp Refills Pramipexole 0.75 mg tablet 90 tablet 1 Sig: Take 1 tablet by mouth daily at bedtime. ALLERGIES Allergen Reactions Adhesive Tape (Natty* Itching Latex, Natural Rubb* Rash Metformin Other: See Comments Caused arrhythmia issues Seasonal Allergies Itching Simvastatin Other: See Comments myalgia (home) [phone] (work) Last Office Visit Date: 03/01/2023 Last [facility] Visit: Visit date not found Future Appointment: 03/15/2023 The patients preferred pharmacy has been captured for this encounter? yes Request is for script(s) to be escript to pharmacy. Lilli Rascon LPN documented in this encounterSamaritan North Health Center08-21-2023 Miscellaneous Notes* Telephone Encounter - Aby [...] Itching Simvastatin Other: See Comments myalgia (home) [phone] (work) Last Office Visit Date: 03/01/2023 Last [facility] Visit: Visit date not found Future Appointment: 03/15/2023 The patients preferred pharmacy has been captured for this encounter? not asked Request is for script(s) to be escript to pharmacy. Aby Bahena LPN documented in this encounterSamaritan North Health Center08-18-2023 History of Present illness Narrative* Williams Rubin MD - 03/01/2023 2:20 PM EDT [facility] 1 [facility] [address] [place] [address] Visit Date: March 01, 2023 Name: Michelle Jules Date of : 1965 MRN/E #: [id number] Subjective Patient is a 57 year old [...] and cholesterol. The 10-year ASCVD risk score (Brenda REBOLLEDO, [...] neuropathy, with long-term current use of insulin ([facility]) -ICD9: 250.60, 357.2, V58.67, ICD10: E11.40, Z79.4 [...] (U-100) 100 UNIT/ML SUBCUTANEOUS PEN - FREESTYLE ALNCE 2 SENSOR KIT - WILL CALL PHARMACY - INSULIN GLARGINE (U-100) 100 UNIT/ML (3 ML) SUBCUTANEOUS PEN - INSULIN GLARGINE 40 UNITS BID - INSULIN LISPRO 8 UNITS 3X A DAY BEFORE MEALS - PEN NEEDLE, DIABETIC 31 GAUGE X 16 - ATORVASTATIN 10 MG TABLET 2. Essential hypertension, benign - ICD9: 401.1, ICD10: I10 - Controlled - Encouraged sodium restriction, DASH or Mediterranean diet - Recommend regular aerobic exercise - MAGNESIUM OXIDE 400 MG (241.3 MG MAGNESIUM) TABLET 3. Coronary artery disease involving [place] heart without angina pectoris, unspecified vessel or lesion type - ICD9: 414.01, ICD10: I25.10 - ASPIRIN 81 MG TABLET,DELAYED RELEASE - SPIRONOLACTONE 25 MG TABLET - ENALAPRIL MALEATE 2.5 MG TABLET - CARVEDILOL 25 MG TABLET 4. Restless leg syndrome - ICD9: 333.94, ICD10: G25.81 - PRAMIPEXOLE 0.75 MG TABLET Williams Rubin MD Family Medicine, PGY-I [facility] documented in this encounterSamaritan North Health Center07-18-2023 History of Present illness Narrative* Ronny Wheeler MD - 01/29/2023 3:00 PM EDT Images from the original note were not included. [facility] SECTION OF CARDIAC PACING and ELECTROPHYSIOLOGY OUTPATIENT VISIT DATE January 29, 2023 OUTPATIENT VISIT TYPE NEW PRIMARY CARE PHYSICIAN: Homar Vasques [address] [place] [address] REFERRING PHYSICIAN: No referring provider defined for this encounter. HISTORY OF PRESENT ILLNESS: 57-year-old female with history of essential hypertension, diabetes, obesity, nonischemic cardiomyopathy, TENTER FEEDER-D device implantation in 2013 at [facility], status post ICD PPG replacement for premature depletion at [facility] in 2019, moved to [place] and now moved back, has not been [...] INJECTION SYRINGE - CONSULT TO DEVICE CLINIC (AG) 2. Cardiac resynchronization therapy defibrillator (TENTER FEEDER-D) in place - ICD9: V45.02, ICD10: Z95.810 -Last device interrogation 2019, we will arrange for initial evaluation at the device clinic and subsequent remote follow-up. 3. Primary hypertension - ICD9: 401.9, ICD10: I10 - Controlled - Continue current medications Ronny Wheeler MD CONTACT INFORMATION: Ronny Wheeler MD documented in this encounterSamaritan North Health Center07-18-2023 Nurse Note* Trinity Arriaza MA - 01/29/2023 2:24 PM EDT Patient denies any cardiac issues or symptoms. documented in this encounterSamaritan North Health Center2023 Miscellaneous Notes* Telephone Encounter - Isabel Newman - 01/24/2023 3:25 PM EDT Referral to Gastroenterology entered into the [facility] portal on 01/24/23. Confirmation number [id number]. documented in this encounterSamaritan North Health Center07-11-2023 Instructions* Patient Instructions* Jay Her DO [...] -Follow-up in 4-6 weeks documented in this encounterSamaritan North Health Center07-11-2023 History of Present illness Narrative* Jay Her DO - 01/22/2023 2:00 PM EDT Images from the original note were not included. [facility] 1 [facility] [address] [place], [place] [address] Visit Date: January 22, 2023 Name: Michelle Jules Date of : 1965 MRN/E #: [id number] Subjective Patient is a 57 year old year old female presenting in the office today with the following: Here to establish care Moved ere from [place] to take care of family member T2DM [...] neuropathy, with long-term current use of insulin ([facility]) -ICD9: 250.60, 357.2, V58.67, ICD10: E11.40, Z79.4 - Uncontrolled - Restart mealtime insulin with lispro 8/8/8/0. Previously was on lispro 26units at mealtimes [...] rec. Jay Her DO Family Medicine, PGY-II [facility] * Georgette Ness LPN - 01/22/2023 1:57 PM EDT Unable to review medications, not sure which paper is up too date. Georgette Ness LPN documented in this encounterSamaritan North Health Center07-11-2023 Miscellaneous Notes* Telephone Encounter - Maria [...] Maria Victoria Gage RN documented in this encounterSamaritan North Health Center10-12-2022 [id number] [place] [address] PERSONAL HISTORY AND PHYSICAL : [phone] Signed Name: MICHELLE JULES MRUN: [id number] : 1965 Loc: [facility] Age / Sex: 56/ F Adm Status: REG RCR Adm Date:04/25/22 Room/Bed: PRIMARY CARE PHYSICIAN: Ha Rivas NP. REASON FOR CONSULTATION: Ulceration, right heel [...] The patient states that she is moving [place] at the end of the month. The [...] 56-year-old female. 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 She is awake, alert and oriented x3. [...] to barely palpable bila (more content not included)...[facility]09-26-2022 Instructions* Patient Instructions* Griselda Lopez RN - 04/09/2022 10:46 AM EDT Stop Furosemide (Lasix) Start Torsemide (Demadex) 40 mg twice a day No more than 2 gm sodium daily Follow 2 liter fluid restriction Monitor weight daily/log given. Bring to office appointment Complete labs couple days before appointment Follow up in 2 weeks documented in this [id number] History of Present illness Narrative* Milka Rodriguez MD - 04/09/2022 10:35 AM EDT Images from the original note were not included. [facility] Subjective Michelle Jules is a 56 y.o. female seen in the office today for Follow-up (6 mht FU non-ischemic cardiomyopathy/increased weight and edema per shoe caser Polina) HPI: HPI Michelle Jules is a [...] on 10/13/2021. Last device check on 01/29/2022: TENTER FEEDER-D REMOTE Check Notes/Summary: STABLE DEVICE FUNCTION. CRTP: [...] essential HTN -Controlled, no changes. History of TENTER FEEDER-D -Last device check in January she is paced 100% -No arrhythmias seen Obesity -Commend weight loss and exercise program Type 2 diabetes -Managed by PCP Dyslipidemia -Managed by PCP Other Tests Ordered: No orders of the defined types were placed in this encounter. Follow-Up Ordered: 2 weeks Milka Rodriguez MD [facility] [address] [place] [address] * Krupa Hercules MA - 04/09/2022 10:29 [...] patient is not nervous/anxious. documented in this [id number] Evaluation note* Date Code Description Provider 04/03/2022 L97.412 Non-pressure chr onic ulcer of right heel and midfoot with fat layer exposed Sly Nix DPM 04/03/2022 L97.421 Non-pressure chr onic ulcer of left heel and midfoot limited to breakdown of skin Sly Nix DPM 04/03/2022 M79.671 Pain in right foot CAIO Vergara 04/03/2022 M79.672 Pain in left foot CAIO Vergara 04/03/2022 B35.1 Tinea unguium Sly mcguire [facility] 04/03/2022 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 mellitus with diabetic polyneuropathy CAIO Vergara 04/03/2022 I87.2 Venous insuffici ency (chronic) (peripheral) Sly Nix DPM 04/03/2022 R60.0 Localized edema Sly Del Rio [facility] 04/03/2022 Z68.37 Body mass index [BMI] 37.0-37.9, adult Sly Nix DPM 01/25/2022 G47.33 Obstructive slee p apnea (adult) (pediatric) Mateo Oseguera PA-C 01/25/2022 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 Mateo Oseguera PA-C 01/25/2022 I10 Essential (primary) hyperten corinne Mateo Oseguera PA-C 01/25/2022 Z68.36 Body mass index [BMI] 36.0-36.9, adult Mateo CatherineSANDRO mcguire 01/11/2022 M76.61 Achilles tendinitis, right l eg [...] DPM 12/12/2021 B35.1 Tinea unguium Sly HernandezMiguelina mcguire, DPM 12/12/2021 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 mellitus with diabetic polyneuropathy Sly Nix, DPM 11/23/2021 G47.33 Obstructive slee p apnea (adult) (pediatric) Vlad Alaniz MD, [facility] 11/23/2021 G47.10 Hypersomnia, unspecified Shanell Alaniz MD, [facility] 11/23/2021 R53.81 Other malaise Vlad Alaniz MD, [facility] 11/23/2021 R53.83 Other fatigue Vlad Alaniz MD, [facility], [facility] 11/23/2021 I10 Essential (primary) hyperten corinne Vlad Alaniz MD, [facility], [facility] 11/13/2021 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, right ankle and foot Sly Nix, DPM 11/13/2021 M24.871 Other specific j oint derangements of right ankle, not elsewhere classified Sly Nix DPM 11/13/2021 M65.871 Other synovitis and tenosynovitis, right ankle and foot Sly Nix DPM 11/13/2021 M25.571 Pain in right an kle and joints of right foot Sly Nix DPM 11/13/2021 R60.0 Localized edema Sly [place], DP 11/13/2021 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 mellitus with diabetic polyneuropathy Sly Nix DP 11/13/2021 Z68.34 Body mass index [BMI] 34.0-34.9, adult Sly Nix DPM 10/09/2021 G89.18 Other acute postprocedural p ain Sly Nix [facility] 10/09/2021 Z09 Encounter for fo llow-up examination after completed treatment for conditions other than malignant neoplasm CAIO VergaraM 10/09/2021 M76.61 Achilles tendinitis, right l eg Sly Nix DPM 10/09/2021 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 Work Phone: 1(605) 653-874207-14-2022 Evaluation note* Date Code Description Provider 04/03/2022 Z68.37 Body mass index [BMI] 37.0-37.9, adult Sly DavidMiguelina Nix, JACEY 01/25/2022 G47.33 Obstructive slee p apnea (adult) (pediatric) Mateo Oseguera PA-C 01/25/2022 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 Mateo Oseguera PA-C 01/25/2022 I10 Essential (primary) hyperten corinne Mateo Oseguera PA-C 01/25/2022 Z68.36 Body mass index [BMI] 36.0-36.9, adult Mateo Oseguera PA-C 01/11/2022 M76.61 Achilles tendinitis, right l eg Sly Nix DPM 01/11/2022 M24.871 Other specific j oint derangements of right ankle, not elsewhere classified Sly Nix DPM 01/11/2022 M65.871 Other synovitis and tenosynovitis, right ankle and foot Sly Nix DPM 01/11/2022 M25.571 Pain in right an kle and joints of right foot Sly Nix DPM 01/11/2022 I87.2 Venous insuffici ency (chronic) (peripheral) CAIO Vergara 01/11/2022 R60.0 Localized edema Sly [place], DP 01/11/2022 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 mellitus with diabetic polyneuropathy Sly Nix DPM 12/12/2021 M24.871 Other specific j oint derangements of right ankle, not elsewhere classified Sly Nix DPM 12/12/2021 M76.61 Achilles tendinitis, right l eg CAIO Vergara 12/12/2021 M65.871 Other synovitis and tenosynovitis, right ankle and foot Sly Nix DPM 12/12/2021 M25.571 Pain in right an kle and joints of right foot CAIO Vergara 12/12/2021 I87.2 Venous insuffici ency (chronic) (peripheral) Sly HernandezMiguelina Nix, [facility] 12/12/2021 R60.0 Localized edema Sly Del [place], [facility] 12/12/2021 B35.1 Tinea unguium Sly DavidMiguelina mcguire, [facility] 12/12/2021 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 mellitus with diabetic polyneuropathy Sly DavidMiguelina Nix [facility] 11/23/2021 G47.33 Obstructive slee p apnea (adult) (pediatric) Vlad Alaniz MD, [facility] 11/23/2021 G47.10 Hypersomnia, unspecified Shanell Alaniz MD, [facility] 11/23/2021 R53.81 Other malaise Vlad Alaniz MD, [facility] 11/23/2021 R53.83 Other fatigue Vlad Alaniz MD, [facility] 11/23/2021 I10 Essential (primary) hyperten coirnne Vlad Alaniz MD, [facility] 11/13/2021 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, right ankle and foot Sly DavidMiguelina Nix [facility] 11/13/2021 M24.871 Other specific j oint derangements of right ankle, not elsewhere classified Sly DavidMiguelina Nix [facility] 11/13/2021 M65.871 Other synovitis and tenosynovitis, right ankle and foot Sly DavidMiguelina Nix [facility] 11/13/2021 M25.571 Pain in right an kle and joints of right foot Sly Nix [facility] 11/13/2021 R60.0 Localized edema Sly [place], [facility] 11/13/2021 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 mellitus with diabetic polyneuropathy Sly DavidMiguelina Nix [facility] 11/13/2021 Z68.34 Body mass index [BMI] 34.0-34.9, adult Sly DavidMiguelina Nix [facility] 10/09/2021 G89.18 Other acute postprocedural p ain Sly Nix [facility] 10/09/2021 Z09 Encounter for fo llow-up examination after completed treatment for conditions other than malignant neoplasm Sly Nix [facility] 10/09/2021 M76.61 Achilles tendinitis, right l eg Sly Nix, DP 10/09/2021 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, [facility] Carrie Lemos.P.M. Work Phone: 1(164) [phone] Evaluation note* Date Code Description Provider 01/11/2022 M76.61 Achilles tendinitis, right l eg Sly DavidMiguelina Nix, DP 01/11/2022 M24.871 Other specific j oint derangements of right ankle, not elsewhere classified Sly DavidCAIO Torres 01/11/2022 M65.871 Other synovitis and tenosynovitis, right ankle and foot Sly HernandezMiguelina Nix DP 01/11/2022 M25.571 Pain in right an kle and joints of right foot Sly DavidMiguelina Nix [facility] 01/11/2022 I87.2 Venous insuffici ency (chronic) (peripheral) Sly DavidMiguelina Nix DP 01/11/2022 R60.0 Localized edema Sly DavidMiguelina [place], [facility] 01/11/2022 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 mellitus with diabetic polyneuropathy Sly DavidMiguelina Nix DP 12/12/2021 M24.871 Other specific j oint derangements of right ankle, not elsewhere classified Sly DavidCAIO Torres 12/12/2021 M76.61 Achilles tendinitis, right l eg Sly DavidMiguelina Nix DP 12/12/2021 M65.871 Other synovitis and tenosynovitis, right ankle and foot Sly Nix, [facility] 12/12/2021 M25.571 Pain in right an kle and joints of right foot Sly Nix, [facility] 12/12/2021 I87.2 Venous insuffici ency (chronic) (peripheral) Sly Nix, DP 12/12/2021 R60.0 Localized edema Sly [place], [facility] 12/12/2021 B35.1 Tinea unguium Sly HernandezMiguelina Newton s, DP 12/12/2021 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 mellitus with diabetic polyneuropathy Sly Nix, [facility] 11/23/2021 G47.33 Obstructive slee p apnea (adult) (pediatric) Vlad Alaniz MD, [facility], [facility] 11/23/2021 G47.10 Hypersomnia, unspecified Shanell Alaniz MD, [facility], [facility] 11/23/2021 R53.81 Other malaise Vlad Alaniz MD, [facility], [facility] 11/23/2021 R53.83 Other fatigue Vlad Alaniz MD, [facility], [facility] 11/23/2021 I10 Essential (primary) hyperten corinne Vlad Alaniz MD, [facility], [facility] 11/13/2021 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, right ankle and foot Sly Nix, [facility] 11/13/2021 M24.871 Other specific j oint derangements of right ankle, not elsewhere classified Sly HernandezMiguelina Boyd [facility] 11/13/2021 M65.871 Other synovitis and tenosynovitis, right ankle and foot Sly Nix [facility] 11/13/2021 M25.571 Pain in right an kle and joints of right foot Sly HernandezMiguelina Nix [facility] 11/13/2021 R60.0 Localized edema Sly [place], [facility] 11/13/2021 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 mellitus with diabetic polyneuropathy Sly HernandezMiguelina Boyd [facility] 11/13/2021 Z68.34 Body mass index [BMI] 34.0-34.9, adult Sly HernandezMiguelina Boyd [facility] 10/09/2021 G89.18 Other acute postprocedural p ain Sly De Santiago Boyd, DPM 10/09/2021 Z09 Encounter for fo llow-up examination after completed treatment for conditions other than malignant neoplasm Sly De Santiago Boyd, DPM 10/09/2021 M76.61 Achilles tendinitis, right l eg Sly De Santiago Boyd, DPM 10/09/2021 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, right ankle Sly HernandezMiguelina Nix, DPM 10/09/2021 M77.31 Calcaneal spur, right foot J shannanbhupendra HernandezMiguelina Nix, DPM 10/09/2021 M79.671 Pain in right foot Sly De Santiago Boyd, DPM 10/09/2021 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 mellitus with diabetic polyneuropathy Sly HernandezMiguelina Nix, DPM 10/09/2021 Z91.19 Patient's noncom pliance with other medical treatment and regimen Sly DavidMiguelina Nix, DPM 10/09/2021 Z68.34 Body mass index [BMI] 34.0-34.9, adult Sly DavidMiguelina Nix, DPM 10/03/2021 Z68.34 Body mass index [BMI] 34.0-34.9, adult Vlad Alaniz MD, [facility], [facility] 09/18/2021 Z91.19 Patient's noncom pliance with other medical treatment and regimen Sly HernandezMiguelina Nix, DPM 09/18/2021 G89.18 Other acute postprocedural p ain Sly HernandezMiguelina Nix, DPM 09/18/2021 Z09 Encounter for fo llow-up examination after completed treatment for conditions other than malignant neoplasm Sly HernandezMiguelina Nix, DPM 09/18/2021 M76.61 Achilles tendinitis, right l eg Sly De Santiago Boyd, DPM 09/18/2021 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, right ankle Sly HernandezMiguelina Nix, DPM 09/18/2021 M77.31 Calcaneal spur, right foot J greg Nix, DPM 09/18/2021 M79.671 Pain in right foot Sly DavidMiguelina Nix, DPM 09/18/2021 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 mellitus with diabetic polyneuropathy Sly DavidMiguelina Nix, DPM 09/18/2021 Z68.34 Body mass index [...] acute postprocedural p ain Sly iNx, DPM 08/25/2021 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, right ankle Sly Nix, DPM 08/25/2021 M76.61 Achilles tendinitis, right l eg Sly Nix, DPM 08/25/2021 M77.31 Calcaneal spur, right foot J josselinerickbhupendra HernandezMiguelina Nix, DPM 08/25/2021 M79.671 Pain in right foot Sly Nix, DPM 08/25/2021 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 mellitus with diabetic polyneuropathy Sly Nix, DPM 08/21/2021 M76.61 Achilles tendinitis, right l eg Sly Nix, DPM 08/21/2021 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, right ankle Sly Nix, DPM 08/21/2021 M77.31 Calcaneal spur, right foot Kendra Nix, DP 08/21/2021 M79.671 Pain in right foot Sly Nix, DP 08/21/2021 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 mellitus with diabetic polyneuropathy Sly Nix, DP 07/27/2021 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, right ankle Sly Nix, DP 07/27/2021 M76.61 Achilles tendinitis, right l eg Sly Nix, DP 07/27/2021 M77.31 Calcaneal spur, right foot Kendra Nix, [facility] 07/27/2021 M79.671 Pain in right foot Sly Nix, [facility] 07/27/2021 B35.1 Tinea unguium Sly Newton shayla, [facility] 07/27/2021 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 mellitus with diabetic polyneuropathy Sly Nix, [facility] 07/27/2021 M20.42 Other hammer toe (s) (acquired), left foot Sly Nix, [facility] 07/27/2021 M20.41 Other hammer toe (s) (acquired), right foot Sly Nix, [facility] 07/27/2021 Z68.35 Body mass index [BMI] 35.0-35.9, adult Sly Nix, [facility] Sly Nix, D.P.M. Work Phone: 1(680) [phone] Evaluation note* Date Code Description Provider 12/12/2021 M24.871 Other specific j oint derangements of right ankle, not elsewhere classified Sly Nix, DP 12/12/2021 M76.61 Achilles tendinitis, right l eg Sly Nix, [facility] 12/12/2021 M65.871 Other synovitis and tenosynovitis, right ankle and foot Sly Nix, [facility] 12/12/2021 M25.571 Pain in right an kle and joints of right foot Sly Nix, [facility] 12/12/2021 I87.2 Venous insuffici ency (chronic) (peripheral) Sly Nix, [facility] 12/12/2021 R60.0 Localized edema Sly [place], [facility] 12/12/2021 B35.1 Tinea unguium Sly DavidMiguelina Newton s, [facility] 12/12/2021 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 mellitus with diabetic polyneuropathy Sly Nix, DP 11/23/2021 G47.33 Obstructive slee p apnea (adult) (pediatric) Vlad Alaniz MD, [facility], [facility] 11/23/2021 G47.10 Hypersomnia, unspecified Shanell Alaniz MD, [facility], [facility] 11/23/2021 R53.81 Other malaise Vlad Alaniz MD, [facility], [facility] 11/23/2021 R53.83 Other fatigue Vlad Alaniz MD, [facility], [facility] 11/23/2021 I10 Essential (primary) hyperten corinne Vlad Alaniz MD, [facility], [facility] 11/13/2021 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, right ankle and foot Sly Nix [facility] 11/13/2021 M24.871 Other specific j oint derangements of right ankle, not elsewhere classified Sly Nix [facility] 11/13/2021 M65.871 Other synovitis and tenosynovitis, right ankle and foot Sly Nix [facility] 11/13/2021 M25.571 Pain in right an kle and joints of right foot Sly Nix [facility] 11/13/2021 R60.0 Localized edema Sly [place], [facility] 11/13/2021 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 mellitus with diabetic polyneuropathy Sly Nix [facility] 11/13/2021 Z68.34 Body mass index [BMI] 34.0-34.9, adult Sly Nix [facility] 10/09/2021 G89.18 Other acute postprocedural p ain Sly Nix [facility] 10/09/2021 Z09 Encounter for fo llow-up examination after completed treatment for conditions other than malignant neoplasm Sly Nix DP 10/09/2021 M76.61 Achilles tendinitis, right l eg Sly Nix DP 10/09/2021 M92.61 Juvenile osteoch ondrosis of [...] index [BMI] 34.0-34.9, adult Vlad Alaniz MD, [facility], [facility] 09/18/2021 Z91.19 Patient's noncom pliance with other medical treatment and regimen Sly HernandezMiguelina Nix, DPM 09/18/2021 G89.18 Other acute postprocedural [...] [BMI] 34.0-34.9, adult Sly HernandezMiguelina Nix, DPM 09/05/2021 Z91.19 Patient's noncom pliance with other medical treatment and regimen Sly HernandezMiguelina Nix, DPM 09/05/2021 G89.18 Other acute postprocedural p ain Sly DavidMiguelina Nix, DPM 09/05/2021 Z09 Encounter for fo llow-up examination after completed treatment for conditions other than malignant neoplasm Sly Nix, DPM 09/05/2021 M76.61 Achilles tendinitis, right l eg Sly Nix, DPM 09/05/2021 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, right ankle Sly Nix, DPM 09/05/2021 M77.31 Calcaneal spur, right foot J greg HernandezMiguelina Nix, DPM 09/05/2021 M79.671 Pain in [...] Other acute postprocedural p ain Sly Nix, DP 06/20/2021 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, left ankle Sly Nix, [facility] 06/20/2021 M76.62 Achilles tendinitis, left le g Sly Nix, DP 06/20/2021 M77.32 Calcaneal spur, left foot Lisseth Nix, DP 06/20/2021 M79.672 Pain in left foot Sly De Santiago Boyd, [facility] 06/20/2021 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 mellitus with diabetic polyneuropathy Sly De Santiago Boyd, [facility] 06/20/2021 Z68.36 Body mass index [BMI] 36.0-36.9, adult Sly DavidMiguelina Nix, JACEY Nix, D.P.M. Work Phone: 1([phone] Evaluation note* Date Code Description Provider 12/12/2021 M24.871 Other specific j oint derangements of right ankle, not elsewhere classified Sly De Santiago Boyd, [facility] 12/12/2021 M76.61 Achilles tendinitis, right l eg Sly De Santiago Boyd, [facility] 12/12/2021 M65.871 Other synovitis and tenosynovitis, right ankle and foot Sly De Santiago Boyd [facility] 12/12/2021 M25.571 Pain in right an kle and joints of right foot Sly De Santiago Boyd [facility] 12/12/2021 I87.2 Venous insuffici ency (chronic) (peripheral) Sly DavidMiguelina Nix, [facility] 12/12/2021 R60.0 Localized edema Sly [place], [facility] 12/12/2021 B35.1 Tinea unguium Sly HernandezMiguelina mcguire, [facility] 12/12/2021 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 mellitus with diabetic polyneuropathy Sly DavidMiguelina Nix, [facility] 11/23/2021 G47.33 Obstructive slee p apnea (adult) (pediatric) Vlad Alaniz MD, [facility], [facility] 11/23/2021 G47.10 Hypersomnia, unspecified Shanell Alaniz MD, 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, right ankle and foot Sly HernandezMiguelina Nix, DPM 11/13/2021 M24.871 Other specific j oint derangements of right ankle, not elsewhere classified Sly HernandezMiguelina Nix, DPM 11/13/2021 M65.871 Other synovitis and tenosynovitis, right ankle and foot Sly DavidMiguelina Nix, DP 11/13/2021 M25.571 Pain in right an kle and joints of right foot Sly DavidMiguelina Nix DP 11/13/2021 R60.0 Localized edema Sly DavidMiguelina [place], DP 11/13/2021 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 mellitus with diabetic polyneuropathy Sly DavidMiguelina Nix DP 11/13/2021 Z68.34 Body mass index [BMI] 34.0-34.9, adult Sly DavidMiguelina Nix, DPM 10/09/2021 G89.18 Other acute postprocedural p ain Sly DavidMiguelina Nix [facility] 10/09/2021 Z09 Encounter for fo llow-up examination after completed treatment for conditions other than malignant neoplasm Sly DavidMiguelina Nix DPM 10/09/2021 M76.61 Achilles tendinitis, right l eg Sly DavidMiguelina Nix, DPM 10/09/2021 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, right ankle Sly DavidMiguelina Nix DPM 10/09/2021 M77.31 Calcaneal spur, right foot J osepbhupendra Nix, DPM 10/09/2021 M79.671 Pain in right foot Sly Nix DPM 10/09/2021 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 mellitus with diabetic polyneuropathy Sly Nix DPM 10/09/2021 Z91.19 Patient's noncom pliance with other medical treatment and regimen Sly Nix DPM 10/09/2021 Z68.34 Body mass index [BMI] 34.0-34.9, adult Sly Nix DPM 10/03/2021 Z68.34 Body mass index [BMI] 34.0-34.9, adult Vlad Alaniz MD, [facility], [facility] 09/18/2021 Z91.19 Patient's noncom pliance with other medical treatment and regimen Sly Nix, DPM 09/18/2021 G89.18 Other acute postprocedural p ain Sly De Santiago Boyd, DPM 09/18/2021 Z09 Encounter for fo llow-up examination after completed treatment for conditions other than malignant neoplasm Sly HernandezMiguelina Nix, DPM 09/18/2021 M76.61 Achilles tendinitis, right [...] with diabetic polyneuropathy Sly DavidMiguelina Nix, DPM 08/25/2021 Z91.19 Patient's noncom pliance [...] DPM 07/27/2021 B35.1 Tinea unguium Sly HernandezMiguelina Newton s, DPM 07/27/2021 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 mellitus with diabetic polyneuropathy Sly Nix, DPM 07/27/2021 M20.42 Other hammer toe (s) (acquired), left foot Sly DavidCAIO Torres 07/27/2021 M20.41 Other hammer toe (s) (acquired), right foot Sly DavidCAIO Torres 07/27/2021 Z68.35 Body mass index [BMI] 35.0-35.9, adult JACEY Vergara D.P.M. Work Phone: 1(794) [phone] Evaluation note* Date Code Description Provider 11/23/2021 G47.33 Obstructive slee p apnea (adult) (pediatric) Vlad Alaniz MD, [facility], [facility] 11/23/2021 G47.10 Hypersomnia, unspecified Shanell Alaniz MD, [facility], [facility] 11/23/2021 R53.81 Other malaise Vlad Alaniz MD, [facility], [facility] 11/23/2021 R53.83 Other fatigue Vlad Alaniz MD, [facility], [facility] 11/23/2021 I10 Essential (primary) hyperten corinne Vlad Alaniz MD, [facility], [facility] 11/13/2021 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, right ankle and foot Sly Nix [facility] 11/13/2021 M24.871 Other specific j oint derangements of right ankle, not elsewhere classified Sly Nix [facility] 11/13/2021 M65.871 Other synovitis and tenosynovitis, right ankle and foot Sly Nix [facility] 11/13/2021 M25.571 Pain in right an kle and joints of right foot Sly Nix [facility] 11/13/2021 R60.0 Localized edema Sly [place], [facility] 11/13/2021 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 mellitus with diabetic polyneuropathy CAIO Vergara 11/13/2021 Z68.34 Body mass index [BMI] 34.0-34.9, adult CAIO Vergara 10/09/2021 G89.18 Other acute postprocedural p ain CAIO Vergara 10/09/2021 Z09 Encounter for fo llow-up examination after completed treatment for conditions other than malignant neoplasm Sly Nix, DPM 10/09/2021 M76.61 Achilles tendinitis, right l eg Sly De Santiago Boyd, DPM 10/09/2021 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, right ankle Sly HernandezMiguelina Nix, DPM 09/18/2021 M77.31 Calcaneal spur, right foot J greg DavidMiguelina Nix, DPM 09/18/2021 M79.671 Pain in right foot Sly DavidMiguelina Nix, DPM 09/18/2021 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 mellitus with diabetic polyneuropathy Sly HernandezMiguelina Nix, DPM 09/18/2021 Z68.34 Body mass index [BMI] 34.0-34.9, adult Sly HernandezMiguelina Nix, DPM 09/05/2021 Z91.19 Patient's noncom pliance [...] 08/25/2021 M77.31 Calcaneal spur, right foot J josselinerickbhupendra HernandezMiguelina Nix, DPM 08/25/2021 M79.671 Pain in right foot Sly Nix, DPM 08/25/2021 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 mellitus with diabetic polyneuropathy Sly Nix, DPM 08/21/2021 M76.61 Achilles tendinitis, right l eg Sly Nix, DPM 08/21/2021 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, right ankle Sly Nix, DPM 08/21/2021 M77.31 Calcaneal spur, right foot J osepbhupendra HernandezMiguelina Nix, DPM 08/21/2021 M79.671 Pain in right foot Sly Nix, DPM 08/21/2021 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 mellitus with diabetic polyneuropathy Sly Nix, DPM 07/27/2021 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, right ankle Sly Nix, DPM 07/27/2021 M76.61 Achilles tendinitis, right l eg Sly Nix, DPM 07/27/2021 M77.31 Calcaneal spur, right foot J osepbhupendra Nix, DPM 07/27/2021 M79.671 Pain in right [...] mass index [BMI] 35.0-35.9, adult Sly Nix, DP 06/20/2021 Z09 Encounter for fo llow-up examination after completed treatment for conditions other than malignant neoplasm Sly Nix, DP 06/20/2021 G89.18 Other acute postprocedural p ain Sly Nix, DPM 06/20/2021 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, left ankle Sly Nix, DP 06/20/2021 M76.62 Achilles tendinitis, left le g Sly Nix, DPM 06/20/2021 M77.32 Calcaneal spur, left foot Lisseth Nix, DP 06/20/2021 M79.672 Pain in left foot Sly Nix, DP 06/20/2021 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 mellitus with diabetic polyneuropathy Sly Nix, DP 06/20/2021 Z68.36 Body mass index [BMI] 36.0-36.9, adult Sly Nix, DP 06/13/2021 Z09 Encounter for fo llow-up examination after completed treatment for conditions other than malignant neoplasm Sly Nix, DP 06/13/2021 G89.18 Other acute postprocedural p ain Sly Nix, DP 06/13/2021 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, left ankle Sly Nix, DP 06/13/2021 M76.62 Achilles tendinitis, left le g Sly Nix, DP 06/13/2021 M77.32 Calcaneal spur, left foot Lisseth Nix, DP 06/13/2021 M79.672 Pain in left foot Sly Nix, DP 06/13/2021 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 mellitus with diabetic polyneuropathy Sly Nix, [facility] 06/13/2021 I87.2 Venous insuffici ency (chronic) (peripheral) Sly Nxi, [facility] 06/13/2021 Z68.35 Body mass index [BMI] 35.0-35.9, adult Sly DavidMigeulina Nix, [facility] Carrie Lemos.P.M. Work Phone: 1(198) [phone] Evaluation note* Date Code Description Provider 11/23/2021 G47.33 Obstructive slee p apnea (adult) (pediatric) Vlad Alaniz MD, [facility], [facility] 11/23/2021 G47.10 Hypersomnia, unspecified Shanell Alaniz MD, [facility], [facility] 11/23/2021 R53.81 Other malaise Vlad Alaniz MD, [facility], [facility] 11/23/2021 R53.83 Other fatigue Vlad Alaniz MD, [facility], [facility] 11/23/2021 I10 Essential (primary) hyperten corinne Vlad Alaniz MD, [facility], [facility] 11/13/2021 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, right ankle and foot Sly Nix, [facility] 11/13/2021 M24.871 Other specific j oint derangements of right ankle, not elsewhere classified Sly Nix [facility] 11/13/2021 M65.871 Other synovitis and tenosynovitis, right ankle and foot Sly Nix [facility] 11/13/2021 M25.571 Pain in right an kle and joints of right foot Sly Nix [facility] 11/13/2021 R60.0 Localized edema Sly Del [place], [facility] 11/13/2021 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 mellitus with diabetic polyneuropathy Sly Nix [facility] 11/13/2021 Z68.34 Body mass index [BMI] 34.0-34.9, adult Sly Nix [facility] 10/09/2021 G89.18 Other acute postprocedural p ain Sly Nix [facility] 10/09/2021 Z09 Encounter for fo llow-up examination after completed treatment for conditions other than malignant neoplasm CAIO Vergara 10/09/2021 M76.61 Achilles tendinitis, right l eg Sly Nix [facility] 10/09/2021 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, right ankle CAIO Vergara 10/09/2021 M77.31 Calcaneal spur, right foot J osepbhupendra Nix [facility] 10/09/2021 M79.671 Pain in right foot Sly Nix [facility] 10/09/2021 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 mellitus with diabetic polyneuropathy Sly Nix, DPM 10/09/2021 Z91.19 Patient's noncom pliance with other medical treatment and regimen Sly De Santiago Boyd, DPM 10/09/2021 Z68.34 Body mass index [BMI] 34.0-34.9, adult Sly Nix, DPM 10/03/2021 Z68.34 Body mass index [BMI] 34.0-34.9, adult Vlad Alaniz MD, [facility], [facility] 09/18/2021 Z91.19 Patient's noncom pliance with [...] 09/18/2021 M77.31 Calcaneal spur, right foot J oserickbhupendra De Santiago Boyd, DPM 09/18/2021 M79.671 Pain [...] postprocedural p ain Sly HernandezMiguelina Nix, DPM 09/05/2021 Z09 Encounter for fo llow-up examination after completed treatment for conditions other than malignant neoplasm Sly HernandezMiguelina Nix, DPM 09/05/2021 M76.61 Achilles tendinitis, right l eg Sly HernandezMiguelina Nix, DPM 09/05/2021 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 Work Phone: [phone] [id number] Evaluation + Plan note* Assessment & Plan Note - Abbey Oliveira CNP - 10/13/2021 1:16 PM EDTAssociated Problem(s): Benign essential HTN -Controlled, no changes. [id number] Miscellaneous Notes* Assessment & Plan Note - [...] check -Follow-up 6 months. documented in this [id number] Evaluation + Plan note* Assessment & Plan Note - Abbey Oliveira CNP - 10/13/2021 1:15 PM EDT Associated Problem(s): Nonischemic cardiomyopathy (HCC) -Nonischemic cardiomyopathy, functional class II. Recovered ejection fraction 45 to 50% now. -She is euvolemic on exam. -Continue carvedilol, Aldactone and losartan at current doses. -Continue Lasix 40 mg twice daily -Labs reviewed -Schedule device check -Follow-up 6 months. [id number] Instructions* Patient Instructions* Juany Harden RN - 10/13/2021 11:35 AM EDT No changes today 2. Follow up in 6 months documented in this [id number] History of Present illness Narrative* Krupa Hercules [...] General Cardiology Clinic Consult Heart & Vascular [facility] 10/13/2021 Patient: Michelle Jules Date [...] Systems: Review of systems performed by the quality engineer medical device, personally reviewed and viewable in the current [...] LDLCALC, LDLDIRECT, TRIG, HDL Abbey Oliveira CNP [facility], Heart and Vascular [address] [place] [address] [email or web address] documented in this [id number] Evaluation note* Date Code Description Provider 10/09/2021 Z68.34 Body mass index [BMI] 34.0-34.9, adult Sly Nix DPM 10/03/2021 Z68.34 Body mass index [BMI] 34.0-34.9, adult Vlad Alaniz MD, [facility], [facility] 09/18/2021 Z91.19 Patient's noncom pliance with [...] DPM 09/05/2021 G89.18 Other acute postprocedural p aijatin Sly De Santiago Boyd, DPM 09/05/2021 Z09 [...] treatment for conditions other than malignant neoplasm lSy HernandezMiguelina Nix, DPM 08/25/2021 G89.18 Other acute postprocedural p ain Sly HernandezMiguelina Nix, DPM 08/25/2021 M92.61 Juvenile osteoch ondrosis [...] M76.61 Achilles tendinitis, right l eg Sly Nxi, DPM 05/04/2021 M79.671 Pain in right foot Sly Nix, DPM 05/04/2021 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 mellitus with diabetic polyneuropathy Sly Nix DPM 05/04/2021 I87.2 Venous insuffici ency (chronic) (peripheral) Sly Nix DPM 05/04/2021 Z68.35 Body mass index [BMI] 35.0-35.9, adult Sly Nix, Gisselle CorreaPGarry. 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 09/18/2021 Z91.19 Patient's noncom pliance with other medical treatment and regimen Sly Nix DPM 09/18/2021 G89.18 Other acute postprocedural p ain Sly Nix, CAIO 09/18/2021 Z09 Encounter for fo llow-up examination [...] 08/25/2021 M77.31 Calcaneal spur, right foot J oseph F. 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 JACEY Nix D.P.M. Work Phone: [phone] Reason for referral (narrative)* Refer to Dr Reason for Referral Status Appt [facility] Open Repair of Achil les Tendon with Removal of Bone Spurs/Reina's Deformity with Partial Detachment and Re-Attachment of Achilles Tendon with Suture Bridge of Right Foot/Heel 08/07/2021- Per [facility] Portal, patient with active coverage. PA initiated and right foot surgery procedure codes 31179 and 06925 approved with effective dates 08/07/2021 through 11/05/2021. Auth number [id number]. mj Sent 08/21/2021 [facility] [phone] [facility] Open Repair of Achil les Tendon with Removal of Bone Spurs/Reina's Deformity with Partial Detachment and Re-Attachment of Achilles Tendon with Suture Bridge -- All of the Left Foot/Heel CPT Codes Provided by Dr. Nix: [id number], [id number] 05/08/2021- Outpatient surgery procedure codes 06299 and 18784 approved with effective dates 05/08/2021 through 08/06/2021. Auth number [id number]. mj Sent 06/05/2021 [facility]4 Evelyn Bliss [phone] Sly Nix D.P.M. Work Phone: [phone] Reason for referral (narrative)* Refer to Dr Reason for Referral Status Appt [facility], [facility] Open Repair of Achil les Tendon with Removal of Bone Spurs/Reina's Deformity with Partial Detachment and Re-Attachment of Achilles Tendon with Suture Bridge of Right Foot/Heel 08/07/2021- Per [facility] Portal, patient with active coverage. PA initiated and right foot surgery procedure codes 09468 and 48441 approved with effective dates 08/07/2021 through 11/05/2021. Auth number [id number]. mj Sent 08/21/2021 [facility] Evelyn Bliss [phone] Fina LemosM. 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, left ankle Sly Nix, DPM 05/04/2021 M77.32 Calcaneal spur, left foot Lisseth iNx, DPM 05/04/2021 M76.62 Achilles tendinitis, left le [...] 01/12/2021 B35.1 Tinea unguium Sly Newton s, DP 01/12/[address], DPM 01/12/2021 M79.671 Pain in right foot Sly Nix, DPM 01/12/2021 M79.672 Pain in left foot Sly Nix, DPM 01/12/2021 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 mellitus with diabetic polyneuropathy Sly Nix, DPM 01/12/2021 M20.42 Other hammer toe(s) (acquire d), left foot Sly Nix, DPM 01/12/2021 M20.41 Other hammer toe(s) (acquire d), right foot Sly Nix, DPM 01/12/2021 R23.4 Changes in skin texture Jamar Nix, DPM 12/14/2020 M17.0 Bilateral primary osteoarthr itis of knee Thomas Silva MD 12/14/2020 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 mellitus with diabetic polyneuropathy Thomas Silva MD 12/14/2020 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 Work Phone: [phone] Reason for referral (narrative)* Refer to Dr Reason for Referral Status Appt [facility] Open Repair of Achil les Tendon with Removal of Bone Spurs/Reina's Deformity with Partial Detachment and Re-Attachment of Achilles Tendon with Suture Bridge -- All of the Left Foot/Heel CPT Codes Provided by Dr. Nix: [id number], [id number] 05/08/2021- Outpatient surgery procedure codes 71541 and 98197 approved with effective dates 05/08/2021 through 08/06/2021. Auth number [id number]. mj Sent 06/05/2021 [address] [place] [address] [phone] [facility] 12/26/2020- I see whe re surgery was cancelled but authorization did come through which would be valid from 12/18/2020 through 03/18/2021 for one DOS. Auth number [id number]. Just an FYI in case patient would be cleared for surgery within that date frame. emeli Scheduled 12/27/2020 [address] [place] [address] [phone] Gisselle LemosP.M. Work Phone: [phone] Evaluation note* Date Code Description Provider 05/04/2021 Z68.35 Body mass index [BMI] 35.0-35.9, adult Sly Nix DPM 03/30/2021 R23.4 Changes in skin texture Jamar Nix DPM 03/30/2021 M79.671 Pain in right foot Sly Nix DPM 03/30/2021 M79.672 Pain in left foot Sly Nix DPM 03/30/2021 B35.1 Tinea unguium Sly mcguire, JACEY 03/30/2021 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 mellitus with diabetic polyneuropathy Sly Nix DPM 03/30/2021 M20.42 Other hammer toe (s) (acquired), left foot Sly Nix, DPM 03/30/2021 M20.41 Other hammer toe (s) (acquired), right foot Sly Nix, DPM 03/30/2021 I87.2 Venous insuffici ency (chronic) (peripheral) Sly Nix, DPM 03/30/2021 Z68.35 Body mass index [BMI] 35.0-35.9, adult Sly Nix, DP 01/25/2021 G47.33 Obstructive slee p apnea (adult) (pediatric) Mateo Oseguera PA-C 01/25/2021 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 Mateo Oseguera PA-C 01/25/2021 I10 Essential (primary) hyperten corinne Mateo Oseguera PA-C 01/12/2021 L30.9 Dermatitis, unspecified Jamar meng Jonnathan Nix, DP 01/12/2021 B35.1 Tinea unguium Sly Newton s, DPM 01/12/[address], DP 01/12/2021 M79.671 Pain in right foot Sly Nix, DPM 01/12/2021 M79.672 Pain in left foot Sly Nix, DPM 01/12/2021 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 mellitus with diabetic polyneuropathy Sly Nix, DPM 01/12/2021 M20.42 Other hammer toe (s) (acquired), left foot Sly Nix, DP 01/12/2021 M20.41 Other hammer toe (s) (acquired), right foot Sly Nix, DPM 01/12/2021 R23.4 Changes in skin texture Jamar meng Jonnathan Nix, DPM 12/14/2020 M17.0 Bilateral primar y osteoarthritis of knee Thomas Silva MD 12/14/2020 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 mellitus with diabetic polyneuropathy Thomas Silva MD 12/14/2020 Z79.4 penitentiary (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 of i nsulin Thomas Silva MD 11/17/2020 L84 Corns and callosities Brannon Silva MD 11/17/2020 L85.2 Keratosis puncta ta (palmaris et plantaris) Sly Nix, DPM 11/17/2020 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 mellitus with diabetic polyneuropathy Thomas Silva MD 11/17/2020 L84 Corns and callosities Sly Nix, DPM 11/17/2020 Z79.4 terminologist (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 of i nsmalcolm Silva MD 11/17/2020 M79.671 Pain in right foot Thomas reed MD 11/17/2020 R23.4 Changes in skin texture Jamar Nix, DPM 11/17/2020 M17.0 Bilateral primar y osteoarthritis of knee Thomas Silva MD 11/17/2020 M79.671 Pain in right foot Sly Nix DPShanell 11/17/2020 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 mellitus with diabetic polyneuropathy Sly Nix DPM 11/17/2020 L85.3 Xerosis cutis Sly Newton s, DPM 11/17/2020 M20.42 Other hammer toe (s) (acquired), left foot CAIO VergaraM 11/17/2020 M20.41 Other hammer toe (s) (acquired), right foot CAIO VergaraM 11/17/2020 Z79.4 penitentiary (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 of i josue Nix DPM 11/15/2020 G47.33 Obstructive slee p apnea (adult) (pediatric) Vlad Alaniz MD, [facility], [facility] 11/15/2020 G47.10 Hypersomnia, unspecified Shanell Alaniz MD, [facility], [facility] 11/15/2020 G47.61 Periodic limb movement disor janee Vlad Alaniz MD, [facility], [facility] 11/15/2020 R53.83 Other fatigue [facility] 11/15/2020 I10 Essential (primary) hyperten corinne Vlad Alaniz MD, [facility], [facility] 11/15/2020 I50.22 Chronic systolic (congestive) heart failure Vlad Alaniz MD, [facility], [facility] Sly Nix, D.P.M. 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, left ankle Sly Nix, DP 05/04/2021 M77.32 Calcaneal spur, left foot Lisseth Nix, DPM 05/04/2021 M76.62 Achilles tendinitis, left le g Sly Nix, DP 05/04/2021 M79.672 Pain in left foot Sly Nix, DP 05/04/2021 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, right ankle Sly Nix, DP 05/04/2021 M77.31 Calcaneal spur, right foot J ossantos Nix, DP 05/04/2021 M76.61 Achilles tendinitis, right l eg Sly Nix, DP 05/04/2021 M79.671 Pain in right foot Sly Nix, DP 05/04/2021 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 mellitus with diabetic polyneuropathy Sly Nix, DP 05/04/2021 I87.2 Venous insuffici ency (chronic) (peripheral) Sly Nix, [facility] 05/04/2021 Z68.35 Body mass index [BMI] 35.0-35.9, adult Sly Nix, DP 03/30/2021 R23.4 Changes in skin texture Jamar Nix, DP 03/30/2021 M79.671 Pain in right foot Sly Nix, DP 03/30/2021 M79.672 Pain in left foot Sly Nix, DPM 03/30/2021 B35.1 Tinea unguium Sly Newton s, DP 03/30/2021 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 mellitus with diabetic polyneuropathy Sly Nix, DP 03/30/2021 M20.42 Other hammer toe (s) (acquired), left foot Sly Nix, DP 03/30/2021 M20.41 Other hammer toe (s) (acquired), right foot Sly Nix, DP 03/30/2021 I87.2 Venous insuffici ency (chronic) (peripheral) Sly DavidMiguelina Nix, DPM 03/30/2021 Z68.35 Body mass index [BMI] 35.0-35.9, adult Sly HernandezMiguelina Nix, DPM 01/25/2021 G47.33 Obstructive slee p [...] 01/12/2021 M79.671 Pain in right foot Sly DavidMiguelina Nix, DPM 01/12/2021 M79.672 Pain in left foot Sly DavidMiguelina Nix, DPM 01/12/2021 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 mellitus with diabetic polyneuropathy Sly DavidMiguelina Nix, DPM 01/12/2021 M20.42 Other hammer toe (s) (acquired), left foot Sly DavidMiguelina Nix, DPM 01/12/2021 M20.41 Other hammer toe (s) (acquired), right foot Sly DavidMiguelina Nix, DPM 01/12/2021 R23.4 Changes in skin texture Jamar Nix, DPM 12/14/2020 M17.0 Bilateral primar y osteoarthritis of knee Thomas Silva MD 12/14/2020 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 mellitus with diabetic polyneuropathy Thomas Silva MD 12/14/2020 Z79.4 terminologist (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 of i nsulin Thomas Silva MD 11/17/2020 L84 Corns and callosities Brannon Silva MD 11/17/2020 L85.2 Keratosis puncta ta (palmaris et plantaris) Sly Nix, DPM 11/17/2020 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 mellitus with diabetic polyneuropathy Thomas Silva MD 11/17/2020 L84 Corns and callosities Sly De Santiago Boyd, DP 11/17/2020 Z79.4 penitentiary (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 of i josue Silva MD 11/17/2020 M79.671 Pain in right foot Thomas reed MD 11/17/2020 R23.4 Changes in skin texture Jamar Nix, DP 11/17/2020 M17.0 Bilateral primar y osteoarthritis of knee Thomas Silva MD 11/17/2020 M79.671 Pain in right foot Sly HernandezMiguelina Nix, DPM 11/17/2020 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 mellitus with diabetic polyneuropathy Sly DavidMiguelina Nix, DP 11/17/2020 L85.3 Xerosis cutis Sly DavidMiguelina mcguire, DP 11/17/2020 M20.42 Other hammer toe (s) (acquired), left foot Sly DavidMiguelina Nix, DPM 11/17/2020 M20.41 Other hammer toe (s) (acquired), right foot Sly DavidMiguelina Nix, DP 11/17/2020 Z79.4 terminologist (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 of i nsulin Sly DavidMiguelina Nix, DP 11/15/2020 G47.33 Obstructive slee p apnea (adult) (pediatric) Vlad Alaniz MD, [facility], [facility] 11/15/2020 G47.10 Hypersomnia, unspecified Shanell Alaniz MD, [facility], [facility] 11/15/2020 G47.61 Periodic limb movement disor janee Vlad Alaniz MD, [facility], [facility] 11/15/2020 R53.83 Other fatigue Vlad Alaniz MD, [facility], [facility] 11/15/2020 I10 Essential (primary) hyperten corinne Vlad Alaniz MD, [facility], [facility] 11/15/2020 I50.22 Chronic systolic (congestive) heart failure lVad Alaniz MD, [facility], [facility] Sly Nix, D.P.M. Work Phone: [phone] Evaluation note* Date Code Description Provider 03/30/2021 R23.4 Changes in skin texture Jamar Nix, DP 03/30/2021 M79.671 Pain in right foot Sly [...] unspecified Jamar Nix, DPM 01/12/2021 B35.1 Tinea ungalexander Newton s, DPM 01/12/[address], DP 01/12/2021 M79.671 Pain in right foot Sly [...] texture Jamar Nix, DPM 12/14/2020 M17.0 Bilateral primar y osteoarthritis of knee Thomas Silva MD 12/14/2020 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 mellitus with diabetic polyneuropathy Thomas Silva MD 12/14/2020 Z79.4 terminologist (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 of i nsmalcolm Silva MD 11/17/2020 L84 Corns and callosities Brannon Silva MD 11/17/2020 L85.2 Keratosis puncta ta (palmaris et plantaris) Sly Nix DPM 11/17/2020 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 mellitus with diabetic polyneuropathy Thomas Silva MD 11/17/2020 L84 Corns and callosities Sly Nix DPM 11/17/2020 Z79.4 terminologist (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 of i josue Silva MD 11/17/2020 M79.671 Pain in right foot Thomas reed MD 11/17/2020 R23.4 Changes in skin texture Jamar Nix DPM 11/17/2020 M17.0 Bilateral primar y osteoarthritis of knee Thomas Silva MD 11/17/2020 M79.671 Pain in right foot Sly Nix DPM 11/17/2020 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 mellitus with diabetic polyneuropathy Sly iNx DPM 11/17/2020 L85.3 Xerosis cutis Sly mcguire, DPM 11/17/2020 M20.42 Other hammer toe (s) (acquired), left foot Sly Nix DPM 11/17/2020 M20.41 Other hammer toe (s) (acquired), right foot Sly Nix DPM 11/17/2020 Z79.4 terminologist (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 of i josue Nix DPM 11/15/2020 G47.33 Obstructive slee p apnea (adult) (pediatric) Vlad Alaniz MD, [facility], [facility] 11/15/2020 G47.10 Hypersomnia, unspecified Shanell Alaniz MD, [facility], [facility] 11/15/2020 G47.61 Periodic limb movement disor janee Vlad Alaniz MD, [facility], [facility] 11/15/2020 R53.83 Other fatigue Vlad Alaniz MD, [facility], [facility] 11/15/2020 I10 Essential (primary) hyperten corinne Vlad Alaniz MD, [facility], [facility] 11/15/2020 I50.22 Chronic systolic (congestive) heart failure Vlad Alaniz MD, [facility], [facility] 11/01/2020 R23.4 Changes in skin texture Jamar Nix, [facility] 11/01/2020 L84 Corns and callosities Sly DavidMiguelina Nix, DP 11/01/2020 M79.671 Pain in right foot Sly DavidMiguelina Nix, DP 11/01/2020 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 mellitus with diabetic polyneuropathy Sly Nix DPM 11/01/2020 M20.42 Other hammer toe (s) (acquired), left foot Sly Nix DPM 11/01/2020 M20.41 Other hammer toe (s) (acquired), right foot Sly Nix DP 11/01/2020 Z79.4 penitentiary (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 of i nsulin Sly Nix, DP 10/27/2020 M17.0 Bilateral primar y osteoarthritis of knee Thomas Silva MD 10/27/2020 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 mellitus with diabetic polyneuropathy Thomas Silva MD 10/27/2020 S91.301A Unspecified open wound, right foot, initial encounter Thomas Silva MD 10/13/2020 R23.4 Changes in skin texture Jamar Nix, DP 10/13/2020 L84 Corns and callosities Sly Nix, DP 10/13/2020 M79.671 Pain in right foot Sly DavidMiguelina Nix, DP 10/13/2020 M79.672 Pain in left foot Sly Nix DP 10/13/2020 B35.1 Tinea unguium Sly mcguire, DP 10/13/2020 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 mellitus with diabetic polyneuropathy Sly Nix DPM 10/13/2020 M20.41 Other hammer toe (s) (acquired), right foot Sly Nix DPM 10/13/2020 M20.42 Other hammer toe (s) (acquired), left foot Sly HernandezMiguelina Boyd, JACEY 10/13/2020 Z79.4 penitentiary (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 of i JACEY Bliss D.PGarry. Work Phone: 1([phone]) 173-720107-14-2021 Evaluation note* Date Code Description Provider 03/30/2021 Z68.35 Body mass index [BMI] 35.0-35.9, adult Sly DavidMiguelina Nix, JACEY 01/25/2021 G47.33 Obstructive slee p apnea (adult) (pediatric) Mateo Oseguera PA-C 01/25/2021 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 Mateo Oseguera PA-C 01/25/2021 I10 Essential (primary) hyperten corinne Mateo Oseguera PA-C 01/12/2021 L30.9 Dermatitis, unspecified Jamar Nix, JACEY 01/12/2021 B35.1 Tinea unguium Sly DavidMiguelina Newton s, DP 01/12/2021 L60.0 In[address] nail Sly DavidMiguelina way, DP 01/12/2021 M79.671 Pain in right foot Sly Jonnathan Nix, DP 01/12/2021 M79.672 Pain in left foot Sly De Santiago Boyd, DP 01/12/2021 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 mellitus with diabetic polyneuropathy Sly DavidMiguelina Nix, JACEY 01/12/2021 M20.42 Other hammer toe (s) (acquired), left foot Sly DavidMiguelina Nix, CAIO 01/12/2021 M20.41 Other hammer toe (s) (acquired), right foot Sly DavidMiguelina Nix, CAIO 01/12/2021 R23.4 Changes in skin texture Jamar Nix, DP 12/14/2020 M17.0 Bilateral primar y osteoarthritis of knee Thomas Silva MD 12/14/2020 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 mellitus with diabetic polyneuropathy Thomas Silva MD 12/14/2020 Z79.4 terminologist (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 of i josue Silva MD 11/17/2020 L84 Corns and callosities Willia m Kumler, MD 11/17/2020 L85.2 Keratosis puncta ta (palmaris et plantaris) Sly Nix, DPM 11/17/2020 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 mellitus with diabetic polyneuropathy Thomas Silva MD 11/17/2020 L84 Corns and callosities Sly DavidMiguelina Nix, DPM 11/17/2020 Z79.4 terminologist (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 of i nsmalcolm Silva MD 11/17/2020 M79.671 Pain in right foot Thomas reed MD 11/17/2020 R23.4 Changes in skin texture Jamar Nix, DPM 11/17/2020 M17.0 Bilateral primar y osteoarthritis of knee Thomas Silva MD 11/17/2020 M79.671 Pain in right foot Sly Nix DPM 11/17/2020 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 mellitus with diabetic polyneuropathy Sly Nix DPM 11/17/2020 L85.3 Xerosis cutis Sly Newton s, DPM 11/17/2020 M20.42 Other hammer toe (s) (acquired), left foot Sly Nix, DPM 11/17/2020 M20.41 Other hammer toe (s) (acquired), right foot Sly Nix DPM 11/17/2020 Z79.4 penitentiary (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 of i nsmalcolm Nix, DPM 11/15/2020 G47.33 Obstructive slee p apnea (adult) (pediatric) Vlad Alaniz MD, [facility], [facility] 11/15/2020 G47.10 Hypersomnia, unspecified Shanell Alaniz MD, [facility], [facility] 11/15/2020 G47.61 Periodic limb movement disor janee Vlad Alaniz MD, [facility], [facility] 11/15/2020 R53.83 Other fatigue Vlad Alaniz MD, [facility], [facility] 11/15/2020 I10 Essential (primary) hyperten corinne Vlad Alaniz MD, [facility], [facility] 11/15/2020 I50.22 Chronic systolic (congestive) heart failure Vlad Alaniz MD, [facility], [facility] 11/01/2020 R23.4 Changes in skin texture [...] right foot Sly Nix, DPM 11/01/2020 Z79.4 terminologist (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 of i nsulin Sly Nix, CAIOM 10/27/2020 M17.0 Bilateral primar y [...] Nix, DPM 10/13/2020 B35.1 Tinea unguium Sly HernandezMiguelina Aman s, DPM 10/13/2020 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 mellitus with diabetic polyneuropathy Sly Nix, DPM 10/13/2020 M20.41 Other hammer toe (s) (acquired), right foot Sly Nix, DPM 10/13/2020 M20.42 Other hammer toe (s) (acquired), left foot Sly Nix, DPM 10/13/2020 Z79.4 terminologist (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 of i nsulin Sly Nix, Gisselle CorreaP.Shanell. Work Phone: [phone]) 704-704106-14-2021 Reason for referral (narrative)* Refer to Reason for Referral Status Appt Ugo [facility], [facility] 12/26/2020- I see whe re surgery was cancelled but authorization did come through which would be valid from 12/18/2020 through 03/18/2021 for one DOS. Auth number [id number]. Just an FYI in case patient would be cleared for surgery within that date frame. mj Scheduled 12/27/[address] [place], [place] [id number] [phone] Sly Nix D.P.M. Work Phone: [phone]) 369-855307-28-2016 History of Past illness Narrative* Problem Noted [...] in 1999 Endocrinology -- Dr. Washington, [facility] [place] Unspecified disorder of joint 11/23/2016 Overview: degenerative joint disease Bilateral shoulder pain --- right > left documented as of this encounter (statuses as of 01/22/2023) [facility] History of Past illness Narrative* Problem [...] of this encounter (statuses as of 01/24/2023) [facility] History of Past illness Narrative* Problem [...] dx'd in 1999 Endocrinology -- CASTILLO S[facility] [place] Unspecified disorder of joint 11/23/2016 Overview: degenerative joint disease Bilateral shoulder pain --- right > left documented as of this encounter (statuses as of 01/25/2023) [facility] History of Past illness Narrative* Problem [...] Overview: dx'd in 1999 Endocrinology -- Dr. Washington [facility] [place] Unspecified disorder of joint 11/23/2016 Overview: degenerative joint disease Bilateral shoulder pain --- right > left documented as of this encounter (statuses as of 01/30/2023) [facility] History of Past illness Narrative* Problem [...] of this encounter (statuses as of 02/12/2023) [facility] History of Past illness Narrative* Problem [...] dx'd in 1999 Endocrinology -- [place]STILLO S[place] Unspecified disorder of joint 11/23/2016 Overview: degenerative joint disease Bilateral shoulder pain --- right > left documented as of this encounter (statuses as of 03/02/2023) [facility] History of Past illness Narrative* Problem [...] dx'd in 1999 Endocrinology -- [place] Unspecified disorder of joint 11/23/2016 Overview: degenerative joint disease Bilateral shoulder pain --- right > left documented as of this encounter (statuses as of 03/06/2023) [facility] History of Past illness Narrative* Problem [...] dx'd in 1999 Endocrinology -- [place] Unspecified disorder of joint 11/23/2016 Overview: degenerative joint disease Bilateral shoulder pain --- right > left documented as of this encounter (statuses as of 03/15/2023) [facility] History of Past illness Narrative* Problem [...] of this encounter (statuses as of 03/16/2023) [facility] History of Past illness Narrative* Problem [...] of this encounter (statuses as of 03/19/2023) [facility] History of Past illness Narrative* Problem [...] of this encounter (statuses as of 03/25/2023) [facility] History of Past illness Narrative* Problem [...] dx'd in 1999 Endocrinology -- [place]STILLO S[place] Unspecified disorder of joint 11/23/2016 Overview: degenerative joint disease Bilateral shoulder pain --- right > left documented as of this encounter (statuses as of 03/26/2023) [facility] History of Past illness Narrative* Problem [...] of this encounter (statuses as of 03/30/2023) [facility] History of Past illness Narrative* Problem [...] of this encounter (statuses as of 04/04/2023) [facility] History of Past illness Narrative* Problem [...] dx'd in 1999 Endocrinology -- [place] Unspecified disorder of joint 11/23/2016 Overview: degenerative joint disease Bilateral shoulder pain --- right > left documented as of this encounter (statuses as of 04/04/2023) [facility] History of Past illness Narrative* Problem [...] dx'd in 1999 Endocrinology -- [place] Unspecified disorder of joint 11/23/2016 Overview: degenerative joint disease Bilateral shoulder pain --- right > left documented as of this encounter (statuses as of 04/05/2023) [facility] History of Past illness Narrative* Problem [...] of this encounter (statuses as of 04/12/2023) [facility] History of Past illness Narrative* Problem [...] of this encounter (statuses as of 04/20/2023) [facility] History of Past illness Narrative* Problem [...] dx'd in 1999 Endocrinology -- [place] Unspecified disorder of joint 11/23/2016 Overview: degenerative joint disease Bilateral shoulder pain --- right > left documented as of this encounter (statuses as of 05/01/2023) [facility] History of Past illness Narrative* Problem [...] dx'd in 1999 Endocrinology -- [place] Unspecified disorder of joint 11/23/2016 Overview: degenerative joint disease Bilateral shoulder pain --- right > left documented as of this encounter (statuses as of 05/02/2023) [facility] History of Past illness Narrative* Problem [...] of this encounter (statuses as of 05/07/2023) [facility] Information to Report [facility] Discharge summary No Information to Report [facility] Evaluation note No Information to Report [facility] Evaluation note* Diagnosis Subclinical hyperthyroidism Thyrotoxicosis without mention of goiter or other cause, without mention of thyrotoxic crisis or storm [facility] Diagnosis Nonischemic cardiomyopathy (HCC)- Primary Other primary cardiomyopathies [facility] [place] [facility]* Diagnosis Nonischemic cardiomyopathy (HCC) Other primary cardiomyopathies Dyslipidemia Other and unspecified hyperlipidemia Benign essential HTN [facility] [place] [facility] Date Code Description Provider 01/25/2022 G47.33 [...] derangements of right ankle, not elsewhere classified CAIO Vergara 01/11/2022 M65.871 Other synovitis and tenosynovitis, right ankle and foot Sly Nix, DPM 01/11/2022 M25.571 Pain in right an kle and joints of right foot Sly Nix DPM 01/11/2022 I87.2 Venous insuffici ency (chronic) (peripheral) Sly DavidMiguelina Nix, DPM 01/11/2022 R60.0 Localized edema Sly DavidMiguelina Del [place], DPM 01/11/2022 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 mellitus with diabetic polyneuropathy Sly Nix, DP 12/12/2021 M24.871 Other specific j oint derangements of right ankle, not elsewhere classified CAIO VergaraM 12/12/2021 M76.61 Achilles tendinitis, right l eg Sly Nix, DPM 12/12/2021 M65.871 Other synovitis and tenosynovitis, right ankle and foot Sly DavidMiguelina Nix DPM 12/12/2021 M25.571 Pain in right an kle and joints of right foot Sly Nix, DPM 12/12/2021 I87.2 Venous insuffici ency (chronic) (peripheral) Sly Nix, DPM 12/12/2021 R60.0 Localized edema Sly [place], DP 12/12/2021 B35.1 Tinea unguium Sly Newton s, DP 12/12/2021 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 mellitus with diabetic polyneuropathy Sly Nix, [facility] 11/23/2021 G47.33 Obstructive slee p apnea (adult) (pediatric) Vlad Alaniz MD, [facility], [facility] 11/23/2021 G47.10 Hypersomnia, unspecified Shanell Alaniz MD, [facility], [facility] 11/23/2021 R53.81 Other malaise Vlad Alaniz MD, [facility], [facility] 11/23/2021 R53.83 Other fatigue Vlad Alaniz MD, [facility], [facility] 11/23/2021 I10 Essential (primary) hyperten corinne Vlad Alaniz MD, [facility], [facility] 11/13/2021 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, right ankle and foot Sly Nix, [facility] 11/13/2021 M24.871 Other specific j oint derangements of right ankle, not elsewhere classified Sly Nix DP 11/13/2021 M65.871 Other synovitis and tenosynovitis, right ankle and foot Sly Nix [facility] 11/13/2021 M25.571 Pain in right an kle and joints of right foot Sly Nix DP 11/13/2021 R60.0 Localized edema Sly Del [place], [facility] 11/13/2021 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 mellitus with diabetic polyneuropathy Sly Nix [facility] 11/13/2021 Z68.34 Body mass index [BMI] 34.0-34.9, adult Sly Nix, [facility] 10/09/2021 G89.18 Other acute postprocedural p ain Sly Nix [facility] 10/09/2021 Z09 Encounter for fo llow-up examination after completed treatment for conditions other than malignant neoplasm Sly Nix DP 10/09/2021 M76.61 Achilles tendinitis, right l [...] 34.0-34.9, adult Sly De Santiago Boyd, DPM 10/03/2021 Z68.34 Body mass index [BMI] 34.0-34.9, adult Vlad Alaniz MD, [facility], [facility] 09/18/2021 Z91.19 Patient's noncom pliance with other medical treatment and regimen Sly HernandezMiguelina Nix, DPM 09/18/2021 G89.18 Other acute postprocedural p ain Sly HernandezMiguelina Nix, DPM 09/18/2021 Z09 Encounter for fo llow-up examination after completed treatment for conditions other than malignant neoplasm Sly De Santiago Boyd, DPM 09/18/2021 M76.61 Achilles tendinitis, right l eg Sly De Snatiago Boyd, DPM 09/18/2021 M92.61 Juvenile osteoch ondrosis [...] [BMI] 34.0-34.9, adult Sly HernandezMiguelina Nix, DPM 09/05/2021 Z91.19 Patient's noncom pliance with other medical treatment and regimen Sly HernandezMiguelina Nix, DPM 09/05/2021 G89.18 Other acute postprocedural [...] right ankle Sly De Santiago Boyd, DPM 08/25/2021 M76.61 Achilles tendinitis, right l eg Sly De Santiago Boyd, DPM 08/25/2021 M77.31 Calcaneal spur, right foot Kendra De Santiago Boyd, DPM 08/25/2021 M79.671 Pain [...] diabetes mellitus with diabetic polyneuropathy Sly Nix, DPGisselle WatermanPMiguelinaM. Work Phone: Evaluation note* Diagnosis Subclinical hyperthyroidism Thyrotoxicosis without mention of goiter or other cause, without mention of thyrotoxic crisis or storm [facility] [place] [facility]* Diagnosis Nonischemic cardiomyopathy (HCC)- Primary Other primary cardiomyopathies Benign essential HTN HFrEF (heart failure with reduced ejection fraction) (HCC) Heart failure with preserved ejection fraction, unspecified HF chronicity (HCC) documented in this encounter [facility] noteNo assessment information availableCent[place] Work Phone: Evaluation note* Diagnosis Dyslipidemia Other and unspecified hyperlipidemia documented in this encounter [facility] note* Diagnosis Nonischemic cardiomyopathy (HCC) Other primary cardiomyopathies documented in this encounter [facility] note* Diagnosis Encounter to establish care with new doctor- Primary Other reasons for seeking consultation Type 2 diabetes mellitus with diabetic neuropathy, with long-term current use of insulin ([facility]) Screening for HIV (human immunodeficiency virus) Special [...] esophagitis Esophageal reflux [facility] [place] [facility]* Diagnosis NICM (nonischemic cardiomyopathy) (HCC)- Primary Other primary cardiomyopathies Cardiac resynchronization therapy defibrillator (TENTER FEEDER-D) in place Primary hypertension Unspecified essential hypertension documented in this encounter [facility] note* Diagnosis Type 2 diabetes mellitus with diabetic neuropathy, with long-term current use of insulin ([facility])- Primary Essential hypertension, benign Coronary artery disease involving [place] heart without angina pectoris, unspecified vessel or lesion type Restless leg syndrome Restless legs syndrome (RLS) documented in this encounter [facility] note* Diagnosis Restless leg syndrome Restless legs syndrome (RLS) documented in this encounter [facility] note* Diagnosis Type 2 diabetes mellitus with diabetic neuropathy, with long-term current use of insulin ([facility])- Primary Encounter for immunization Need for other specified prophylactic vaccination against single bacterial disease Medication management Encounter for long-term (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 of other medications [facility] Diagnosis Type 2 diabetes mellitus with diabetic neuropathy, with long-term current use of insulin (HCC) [facility]* Diagnosis Uncontrolled diabetes mellitus with hyperglycemia, without long-term current use of insulin (HCC)- Primary [facility]* Diagnosis Type 2 diabetes mellitus with diabetic neuropathy, with long-term current use of insulin (HCC) [facility]* Diagnosis Type 2 diabetes mellitus with diabetic neuropathy, with long-term current use of insulin (HCC)- Primary Depression, unspecified depression type [facility] Diagnosis Non-ischemic cardiomyopathy (HCC) [I42.8]- Primary Other primary cardiomyopathies [facility]* Diagnosis Type 2 diabetes mellitus with diabetic neuropathy, with long-term current use of insulin (HCC) [facility]* Diagnosis Type 2 diabetes mellitus with diabetic neuropathy, with long-term current use of insulin (HCC)- Primary [facility]* Diagnosis Type 2 diabetes mellitus with diabetic neuropathy, with long-term current use of insulin ([facility])- Primary Hyperglycemia Other abnormal glucose [facility]* Diagnosis Encounter for immunization- Primary Need for other specified prophylactic vaccination against single bacterial disease Type 2 diabetes mellitus with diabetic neuropathy, with long-term current use of insulin ([facility]) documented [facility] [place] [facility]* Diagnosis Type 2 diabetes mellitus with diabetic neuropathy, with long-term current use of insulin (HCC)- Primary Anxiety with depression Chronic constipation Unspecified constipation Intertrigo Other specified erythematous condition Type 2 diabetes mellitus with complication, without long-term current use of insulin (HCC) [facility]* Diagnosis Type 2 diabetes mellitus with diabetic neuropathy, with long-term current use of insulin (HCC)- Primary Preventative health care Routine general medical examination at a health care facility Food insecurity Diabetes education, encounter for Type II or unspecified type diabetes mellitus without mention of complication, not stated as uncontrolled [facility]* Diagnosis Cardiomyopathy, unspecified type (HCC)- Primary [facility]* Diagnosis GERD without esophagitis Esophageal reflux [facility] [place] [facility]* Diagnosis Type 2 diabetes mellitus with diabetic neuropathy, with long-term current use of insulin (HCC)- Primary Uses self-applied continuous glucose monitoring device Preventative health care Routine general medical examination at a health care facility Diabetes education, encounter for Type II or unspecified type diabetes mellitus without mention of complication, not stated as uncontrolled Screening for colon cancer Special screening for malignant neoplasms, colon [facility] [place] [facility]* Diagnosis Uses self-applied continuous glucose monitoring device- Primary Type 2 diabetes mellitus with diabetic neuropathy, with long-term current use of insulin (HCC) Preventative health care Routine general medical examination at a health care facility Diabetes education, encounter for Type II or unspecified type diabetes mellitus without mention of complication, not stated as uncontrolled [facility] [place] [facility]* Diagnosis GERD without esophagitis Esophageal reflux Type 2 diabetes mellitus with diabetic neuropathy, with long-term current use of insulin (HCC) documented [facility] [place] [facility]* Diagnosis Type 2 diabetes mellitus with diabetic neuropathy, with long-term current use of insulin (HCC) documented [facility] [place] [facility]* Diagnosis Type 2 diabetes mellitus with diabetic neuropathy, with long-term current use of insulin (HCC)- Primary documented [facility] [place] [facility]* Diagnosis Type 2 diabetes mellitus with diabetic neuropathy, with long-term current use of insulin (HCC)- Primary Dyspepsia Dyspepsia and other specified disorders of function of stomach Nausea Nausea alone [facility]* Diagnosis Type 2 diabetes mellitus with [...] Other specified counseling [facility]* Diagnosis Restless leg syndrome Restless legs syndrome (RLS) Coronary artery disease involving [place] heart without angina pectoris, unspecified vessel or lesion type [facility] [place] [facility]* Diagnosis Type 2 diabetes mellitus with diabetic neuropathy, with long-term current use of insulin (HCC) documented [facility] [place] [facility]* Diagnosis Type 2 diabetes mellitus with diabetic neuropathy, with long-term current use of insulin (HCC) documented in this encounter [facility] note* Diagnosis Type 2 diabetes mellitus with diabetic neuropathy, with long-term current use of insulin (HCC)- Primary Uses self-applied continuous glucose monitoring device Diabetes education, encounter for Type II or unspecified type diabetes mellitus without mention of complication, not stated as uncontrolled Encounter for medication counseling Other specified counseling Preventative health care Routine general medical examination at a health care facility Complex care coordination documented in this encounter [facility] note* Diagnosis Medication management- Primary Encounter for long-term (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 of other medications documented in this encounter [facility] note* Diagnosis Medication monitoring encounter- Primary Encounter for therapeutic drug monitoring Depression, unspecified depression type Type 2 diabetes mellitus with diabetic neuropathy, with long-term current use of insulin (HCC) Coronary artery disease involving [place] heart without angina pectoris, unspecified vessel or lesion type documented in this encounter [facility] [place] [facility]* Diagnosis Medication management- Primary Encounter for long-term (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 of other medications Coronary artery disease involving [place] heart without angina pectoris, unspecified vessel or lesion type Type 2 diabetes mellitus with diabetic neuropathy, with long-term current use of insulin (HCC) [facility] No Information to Report [facility] Discharge instructions Additional Instructions have sutures removed in 10-14 daysCent[place] Work Phone: Hospital Discharge instructions Additional Instructions [...] skin followed by clean gauze and a wrap.[facility] Work Phone: Procedure note No Information to Report [facility] Progress note No Information to Report [facility] Reason for referral (narrative)* Outpatient Procedure (Routine) - Pending Review Specialty Diagnoses / Procedures Referred By Fred richey Referred To Contact [facility] Diagnoses Screening for colon cancer Procedures COLONOSCOPY SCREENING COLONOSCOPY FLX DX W/COLLJ SPEC WHEN Homar Lora MD [address] [place] [address] [facility] [address] [place] [id number] Referral ID Status Reason Start Date Expiration Date Visits Requested Visits Authorized [id number] Pending Review Auto-Generat ed Referral 10/30/2023 10/29/2024 1 1 [facility] Diagnostic Procedure Only (Routine) - New Request Specialty Diagnoses / Procedures Referred By Fred richey Referred To Contact [facility] Diagnoses Encounter for screening mammogram for breast cancer Procedures [place] SCREENING W LANE[place] SCREENING DIGITAL BREAST TOMOSYNTHESIS BI SCREENING MAMMOGRAPHY BI 2-VIEW BREAST INC CAD Homar Vasques MD [address] [place] [id number] [facility] [address] [place] [phone] Referral ID Status Reason Start Date Expiration Date Visits Requested Visits Authorized [id number] New Request Auto-Generat ed Referral 01/29/2024 02/27/2025 1 1 [facility] Summary Purpose Family History No Family [...] FoundDocuments on File Type Date Recorded 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 Advance Directives and Living Will Power of Socket Puller Documents on File Type Date Recorded 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 Advance Directives and Living Will Documents on File Type Date Recorded 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 No January 11, 2024 11:57pm Do you have a Healthcare Power of Socket Puller? No November 07, 2024 7:34pm Do you have a Healthcare Power of Socket Puller? No November 20, 2024 2:18pm Advance Directives No April 19, 2013 2:19am Advance Directive Response Recorded Date/ Time Living Will No January 11, 2024 11:57pm Do you have a Healthcare Power of Socket Puller? No January 11, 2024 11:57pm Do you have a Healthcare Power of Socket Puller? No November 07, 2024 7:34pm Do you have a Healthcare Power of Socket Puller? No November 20, 2024 7:04pm Advance Directives No April 19, 2013 2:19am Advance Directive Response Recorded Date/ Time Living Will No January 11, 2024 11:57pm Do you have a Healthcare Power of Socket Puller? No January 11, 2024 11:57pm Do you have a Healthcare Power of Socket Puller? No November 07, 2024 7:34pm Do you have a Healthcare Power of Socket Puller? No November 20, 2024 7:04pm Do you have a Healthcare Power of Socket Puller? No November 28, 2024 12:28am Advance Directives [...] The preteen and teen years are a jefefrson time for bone building. With the help [...] Get enough calcium and vitamin D. The [employer] recommends adults younger than age [...] Where can you learn more? Go to [email or web address] Enter S618 in the search box to learn more about Preventing Osteoporosis: Care Instructions. Current as of: February 17, 2019 Content Version: .3 [employer]. Care instructions adapted under license by your healthcare professional. If you have questions about a medical condition or this instruction, always ask your healthcare professional. [employer] disclaims any warranty or liability for your [...] green vegetables such as broccoli and spinach. [place] vegetables such as carrots and sweet potatoes. [...] Where can you learn more? Go to https://www.[employer].net/patientEd. Enter Z059 in the search box to learn more about Food as Fuel: Care Instructions. Current as of: May 21, 2018 Content Version: .20054611-1929 [employer]. Care instructions adapted under license by your healthcare professional. If you have questions about a medical condition or this instruction, always ask your healthcare professional. [employer] disclaims any warranty or liability for your [...] tennis or racquetball. Climb stairs. Even some bow maker can be aerobic just do them at [...] Where can you learn more? Go to https://www.[employer].net/patientEd. Enter W332 in the search box to learn more about Learning About Physical Activity. Current as of: November 16, 2018 Content Version: 12.2 0480-6116 [employer]. Care instructions adapted under license by your healthcare professional. If you have questions about a medical condition or this instruction, always ask your healthcare professional. [employer] disclaims any warranty or liability for your [...] a time each month to do a [id number] breast self-exam. Other women like a less [...] Where can you learn more? Go to https://www.[employer].net/patientEd. Enter P148 in the search box to learn more about Breast Self-Exam: Care Instructions. Current as of: July 02, 2018 Content Version: 12.2 2395-2427 [employer]. Care instructions adapted under license by your healthcare professional. If you have questions about a medical condition or this instruction, always ask your healthcare professional. [employer] disclaims any warranty or liability for your [...] Where can you learn more? Go to https://www.healthwise.net/patientEd. Enter S176 in the search box to learn more about Body Mass Index: Care Instructions. Current as of: October 09, 2018 Content Version: 12.2 [employer]. Care instructions adapted under license by your healthcare professional. If you have questions about a medical condition or this instruction, always ask your healthcare professional. [employer] disclaims any warranty or liability for your [...] green vegetables such as broccoli and spinach. [place] vegetables such as carrots and sweet potatoes. [...] Where can you learn more? Go to https://www.[employer].net/patientEd Enter Z059 in the search box to learn more about Food as Fuel: Care Instructions. Current as of: March 04, 2019 Content Version: 12.3 1810-0901 [employer]. Care instructions adapted under license by your healthcare professional. If you have questions about a medical condition or this instruction, always ask your healthcare professional. [employer] disclaims any warranty or liability for your use of this information. documented in this encounter* Patient Instructions* Nilam Garrett RN - 08/21/2019 10:47 AM EST 1. [facility] will call you to schedule your ECHOCARDIOGRAM. If you have not received a phone call in approximately 7-10 days to schedule your procedure, please call [facility] Central Scheduling at [phone] or our offce at [phone]. Transthoracic Echocardiogram: About This Test What is [...] the side of your chest to help poultry picking machine tender the sound waves. The transducer will be [...] Log into your personal health record on [email or web address]) and enter E130 in the Education box to learn more about Transthoracic Echocardiogram: About This Test. Current as of: October 21, 2018 Content Version: 12.3 4817-0036 [employer]. Care instructions adapted under license by your healthcare professional. If you have questions about a medical condition or this instruction, always ask your healthcare professional. [employer] disclaims any warranty or liability for your [...] the results and further medication direction. 2. [employer] will call you regarding your overnight pulse oximetry. If you have not received a phone call in approximately 3-5 days, please call them at at [phone] or our offce at [phone]. documented in this encounter* Patient Instructions* Marlene [...] be scheduled. Please call our office @ [phone] at that time to schedule your appointment. [...] be scheduled. Please call our office @ [phone] at that time to schedule your appointment. [...] without long-term current use of insulin (HCC) Class 1 obesity without serious comorbidity with [...] a day. Vitamin D, Ergocalciferol, 1.25 MG (88922 UT) CAPS Take 1 capsule by mouth [...] 1 year (around 07/28/2020) for Annual Exam. Anali Chavira LPN - 07/28/2019 1:20 PM EST Michelle [...] or concerns at this time. 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 Patient's medications and allergies were reviewed and [...] no depression. documented in this encounter* Ha Rivas APRN FNP-Tremaine - 08/18/2019 8:15 AM EST Subjective: Michelle [...] complication, without long-term current use of insulin ([facility]) 04/22/2019 Current Outpatient Medications on File Prior [...] a day. Vitamin D, Ergocalciferol, 1.25 MG (58663 UT) CAPS Take 1 capsule by mouth [...] surgery, and will need to see her lead cashier before surgery. Body mass index is 33.79 [...] Rodriguez MD - 08/21/2019 11:47 AM EST [facility] Subjective Michelle Jules [...] She was having her device followed bythe lead cashier in [place]. She is going to switch her follow-up care to our office as well as monitoring her device. She has not received any therapy from her defibrillator. She stated she has never smoked. She was checked for sleep apnea and does not have it. She had a device card which shows she has Cogo G150 DYNAGEN TENTER FEEDER-D. Her last interrogation remotely was 06/30/2019 through [facility] General device clinic. No abnormalities were [...] any further cardiac work-up.Will get an echo. 4.Cogo G150 DYNAGEN TENTER FEEDER-D. Her last interrogation remotely was 06/30/2019 through [facility] [place] [facility] device clinic. No abnormalities were seen. [...] 3 months (around 11/19/2019). Milka Rodriguez MD [facility] [address] [place] [address] * Janet Jacobo MA - 08/21/2019 10:22 [...] The patient is not nervous/anxious. * Abbey Oliveira, SPEECH LANGUAGE SPECIALIST - 12/15/2019 11:00 AM EDT General Cardiology Clinic Consult Heart & Vascular [facility] 12/15/2019 Patient: Michelle Jules Date [...] Systems: Review of systems performed by the quality engineer medical device, personally reviewed and viewable in the current [...] LDLCALC, LDLDIRECT, TRIG, HDL Abbey Oliveira CNP [facility], Heart and Vascular [address] [place] [address] [email or web address] documented in this encounter* Janet Jacobo MA [...] General Cardiology Clinic Consult Heart & Vascular [facility] 12/29/2019 Patient: Michelle Jules Date [...] her labs done as soon as possible. Urology Teacher can take her tomorrow at 9 AM. [...] Systems: Review of systems performed by the quality engineer medical device, personally reviewed and viewable in the current [...] LDLCALC, LDLDIRECT, TRIG, HDL Abbey Oliveira CNP [facility], Heart and Vascular [address] [place] [address] [email or web address] documented in this encounter* Marlene Jacob RN - 12/29/2019 3:13 PM EDT Order for Overnight Pulse Ox faxed to [facility] with insurance card, recent office note, snapshot/med list, and demographic sheet. Fax confirmation receipt received. documented in this encounter* Abbey Oliveira CNP - 04/05/2020 3:30 PM EDT General Cardiology Clinic Consult Heart & Vascular [facility] 04/05/2020 Patient: Michelle Jules Date [...] Systems: Review of systems performed by the quality engineer medical device, personally reviewed and viewable in the current [...] LDLCALC, LDLDIRECT, TRIG, HDL Abbey Oliveira CNP [facility], Heart and Vascular [address] [place], [place] [id number] [email or web address]) * Janet Jacobo MA - 04/05/2020 2:29 [...] Rodriguez MD - 10/07/2020 2:46 PM EDT [facility] Subjective Michelle Jules [...] no changes. ICD (implantable cardioverter-defibrillator) in place [employer]. Enrolled in our device clinic. No events on last interrogation. Other Tests Ordered: No orders of the defined types were placed in this encounter. Follow-Up Ordered: No follow-ups on file. Milka Rodriguez MD [facility] [address] [place] [address] [phone] ([phone] * Krupa Hercules MA - 10/07/2020 2:29 [...] MCKNIGHT (dyspnea on exertion) Procedures Echocardiogram complete w Milka Francisco MD [address] [place] [address] [facility]) - Outpatient [facility] [address] [place] [address] Status Reason Specialty Diagnoses / Procedures Referred By Contact Referred To Contact Authorized Diagnoses PAXTON (obstructive sleep apnea) Procedures Nocturnal pulse oximetry Abbey Oliveira CNP [address] [place] [address] Specialty Diagnoses / Procedures Referred By Contac t Referred To Contact Cardiology Diagnoses Nonischemic cardiomyopathy (HCC) Procedures ECG 12 lead Abbey Oliveira CNP [address] [place] [address] Referral ID Status Reason Start Date Expiration Date V isits Requested Visits Authorized [id number] Authorized 10/13/2021 10/13/2022 1 1 Description No Information Available Specialty Diagnoses / Procedures Referred By Contac t Referred To Contact Gastroenterology Diagnoses Colon cancer screening Family history of colon cancer Procedures CONSULT TO GASTROENTEROLOGY OFFICE/OUTPATIENT [facility] MDM 60-74 MINUTES Evan Barnett MD [address] [address] Referral ID Status Reason Start Date Expiration Date Visits Requested Visits Authorized [id number] Outside PCP PCP Requested Referral 01/22/2023 01/22/2024 1 1 Specialty Diagnoses / Procedures Referred By Contac t Referred To Contact BR IMAGING Diagnoses Encounter for screening mammogram for breast cancer Procedures [place] SCREENING SCREENING MAMMOGRAPHY BI 2-VIEW BREAST INC CAD Evan Barnett MD 1 [facility] [address] [place] [address] Br Imaging [address] [place] [address] Referral ID Status Reason Start Date Expiration Date Visits Requested Visits Authorized [id number] Outside PCP Auto-Generat ed Referral 01/22/2023 02/21/2024 1 1 Specialty Diagnoses / Procedures Referred By Contac t Referred To Contact Ophthalmology Diagnoses Screening for diabetic retinopathy Procedures CONSULT TO OPHTHALMOLOGY OFFICE/OUTPATIENT [facility] MDM 60-74 MINUTES Evan Barnett MD 1 [facility] [address] [place] [address] Referral ID Status Reason Start Date Expiration Date Visits Requested Visits Authorized [id number] Outside PCP PCP Requested Referral 01/22/2023 01/22/2024 1 1 Specialty Diagnoses / Procedures Referred By Contac t Referred To Contact Diagnoses NICM (nonischemic cardiomyopathy) (HCC) Procedures CONSULT TO DEVICE CLINIC (AG) Ronny Wheeler MD [address] [place] [address] Referral ID Status Reason Start Date Expiration Date V isits Requested Visits Authorized [id number] Ref Not Required 01/29/2023 03/30/2023 1 1 Specialty Diagnoses / Procedures Referred By Contac t Referred To Contact [facility] Diagnoses NICM (nonischemic cardiomyopathy) (HCC) Procedures ECHO ECHO TTHRC R-T 2D W/WOM-MODE COMPL SPEC&COLR D Ronny Wheeler MD [address] [place] [address] Heart [facility] Vascular [address] [place] [address] Referral ID Status Reason Start Date Expiration Date Visits Requested Visits Authorized [id number] Pending Review Auto-Generat ed Referral 01/29/2023 01/29/2024 1 1 Specialty Diagnoses / Procedures Referred By Contac t Referred To Contact Diagnoses Anxiety with depression Procedures CONSULT [facility] Gifty Thornton DO [address] [place] [address] Referral ID Status Reason Start Date Expiration Date Visits Requested Visits Authorized [id number] Ref Not Required PCP Requested Referral 08/30/2023 11/28/2023 1 1 Chief Complaint and Reason for Visit Chief Complaint E11.9,Z79.4,I10,R60. 0,E55.9 R74.8 R74.8 RT HEEL L arm laceration Chief Complaint E11.9,Z79.4,I10,R60. 0,E55.9 R74.8 R74.8 L arm laceration RT HEEL Chief Complaint Toe bleeding Chief Complaint Admit Date WICKER MOLDED CANDLES EST CARE-PPW GIVEN August 05, 2024 2:11pm 1 M FU September 07, 2024 11:11am Diabetes October 15, 2024 10:0 4am 6 wk fu October 19, 2024 10:1 1am 6 M FU November 04, 2024 10: 04am defibrillator noise November 07, 2024 7:1 3pm Pacer Check Remote November 09, 2024 9:0 0am NEW ENROLLEE TENTER FEEDER-D November 09, 2024 10: 07am SEPSIS November 20, 2024 4:25pm Reason for Visit Admit Date Anxiety August 05, 2024 2 :11pm Cardiomyopathy, ischemic August 05, 2:11pm GERD (gastroesophageal reflux disease) J anuary [...] 20, 2024 4:25pm Chief Complaint Admit Date WICKER MOLDED CANDLES EST CARE-PPW GIVEN August 05, 2024 2:11pm 1 M FU September 07, 2024 11:11am Diabetes October 15, 2024 10:0 4am 6 wk fu October 19, 2024 10:1 1am 6 M FU November 04, 2024 10: 04am defibrillator noise November 07, 2024 7:1 3pm Pacer Check Remote November 09, 2024 9:0 0am NEW ENROLLEE TENTER FEEDER-D November 09, 2024 10: 07am SEPSIS OF [...] 2024 2 :11pm Cardiomyopathy, ischemic August 05, 025 2:11pm GERD (gastroesophageal reflux disease) J [...] 2024 2 :11pm Establishing care with new doctoraudelia for August 05, 2024 2:11pm Screening for [...] 20, 2024 6:37pm Chief Complaint Admit Date WICKER MOLDED CANDLES EST CARE-PPW GIVEN August 05, 2024 2:11pm 1 M FU September 07, 2024 11:11am Diabetes October 15, 2024 10:0 4am 6 wk fu October 19, 2024 10:1 1am 6 M FU November 04, 2024 10: 04am defibrillator noise November 07, 2024 7:1 3pm Pacer Check Remote November 09, 2024 9:0 0am NEW ENROLLEE TENTER FEEDER-D November 09, 2024 10: 07am SEPSIS OF [...] 2024 9:27p m Chief Complaint Admit Date WICKER MOLDED CANDLES EST CARE-PPW GIVEN August 05, 2024 2:11pm 1 M FU September 07, 2024 11:11am Diabetes October 15, 2024 10:0 4am 6 wk fu October 19, 2024 10:1 1am 6 M FU November 04, 2024 10: 04am defibrillator noise November 07, 2024 7:1 3pm Pacer Check Remote November 09, 2024 9:0 0am NEW ENROLLEE TENTER FEEDER-D November 09, 2024 10: 07am SEPSIS OF [...] November 09, 2024 9:0 0am NEW ENROLLEE TENTER FEEDER-D November 09, 2024 10: 07am SEPSIS OF [...] November 09, 2024 9:0 0am NEW ENROLLEE TENTER FEEDER-D November 09, 2024 10: 07am SEPSIS OF [...] 25, 2024 8:04am SEPSIS OF UNCLEAR ORIGIN May 15th, 2025 12:19pm ANTIBIOTICS November 27, 2024 9:27p m [...] November 09, 2024 9:0 0am NEW ENROLLEE TENTER FEEDER-D November 09, 2024 10: 07am SEPSIS OF [...] section and content) DATE CREATED AUTHOR 01/08/2018 [facility] DATE CREATED AUTHOR AUTHOR'S ORGANIZ ATION 06/23/2018 Bairon Jack [facility] DATE CREATED AUTHOR AUTHOR'S ORGANIZ ATION 03/06/2019 [facility] DATE CREATED AUTHOR AUTHOR'S ORGANIZ ATION 04/21/2022 [facility] DATE CREATED AUTHOR AUTHOR'S ORGANIZ ATION 05/08/2022 [facility] DATE CREATED AUTHOR AUTHOR'S ORGANIZ ATION 09/20/2022 [facility] DATE CREATED AUTHOR AUTHOR'S ORGANIZ ATION 09/20/2022 [facility] DATE CREATED AUTHOR AUTHOR'S ORGANIZ ATION 11/18/2022 [facility] DATE CREATED AUTHOR AUTHOR'S ORGANIZ ATION 12/15/2023 [facility] DATE CREATED AUTHOR AUTHOR'S ORGANIZ ATION 05/10/2024 [facility] DATE CREATED AUTHOR AUTHOR'S ORGANIZ ATION 12/20/2024 [facility] Reason for Visit (unrecogniz ed section and content) Reason Comments Gynecologic Exam Reason Comments Medication Refill Reason Comments Results Reason Comments Surgical Clearance Reason Comments Establish Care cardiac clearance fo r knee scopt Status Reason Specialty Diagnoses / Procedures Referred By Contact Referred To Contact Closed Specialty Services Required/Patient 's Best Interest Cardiology Diagnoses Pre-operative cardiovascular examination Pacemaker David Silva MD [address] [place] [address] Milka Rodriguez MD [address] [place] [address] Reason Comments Other Reason Comments Follow-up 2wk f/u CHF Reason Comments Follow-up 2wk f/u heart failur e Reason Comments Follow-up 3mo f/u heart failur e Reason Onset Date Comments Medication Refill 07/29/2020 Reason Comments Follow-up pre op clearance Reason Comments Follow-up 1 yr f/u NON-ischemi c cardiomyopathy Reason Comments Follow-up 6 mht FU non-ischemi c cardiomyopathy/increased weight and edema per shoe caser Polina Reason Comments Appointment Reason Comments New Patient Reason Comments REFERRAL To Gastroenterology Reason Comments CARD New Patient Consult WICKER MOLDED CANDLES TO RE ESTABL [place] A-FIB Reason Comments [...] 3 mL pen Reason Onset Date Comments Pharmacy Benefits Coordinator Chronic Care 04/05/2023 Intake Reason Onset Date Comments Pharmacy Benefits Coordinator Chronic Care 04/19/2023 Attempted PCC follow up Reason Comments No Show Diabetes follow up Reason Comments No Show Reason Comments Medication Problem Reason Comments Patient Update Reason Comments Results Reason Onset Date Comments Pharmacy Benefits Coordinator Chronic Care 06/18/2023 PCC follow up Reason Comments Medication Authorization Carlos schaeffer n 100unit/ml Reason Comments Patient Question Reason Onset Date Comments Pharmacy Benefits Coordinator Chronic Care 06/27/2023 Attempted PCC follow up Reason Comments Follow Up Diabetes Reason Onset Date Comments Pharmacy Benefits Coordinator Chronic Care 09/06/2023 Attempted PCC follow up Reason Comments Medication Authorization Victoza Reason Comments Medication Authorization Freestyle Lance 2 sensor Reason Onset Date Comments Pharmacy Benefits Coordinator Chronic Care 09/20/2023 PCC follow up Reason Comments Remote Pacemaker Follow Up Reason Onset Date Comments Refill Request 10/22/2023 Reason Comments Diabetes Reason Comments Initial Consult Reason Comments Forms Specialty- glucose m onitor Reason Onset Date Comments Pharmacy Benefits Coordinator Chronic Care 11/08/2023 PCC follow up Reason Comments Colonoscopy Referral Reason Onset Date Comments Refill Request 11/15/2023 Reason Comments Forms Specialty medical- g lucose monitor Reason Onset Date Comments Pharmacy Benefits Coordinator Chronic Care 11/29/2023 PCC follow up Reason Onset Date Comments Pharmacy Benefits Coordinator Chronic Care 12/06/2023 Attempted PCC follow up Reason Onset Date Comments Pharmacy Benefits Coordinator Chronic Care 12/26/2023 PCC follow up Reason Onset Date Comments Pharmacy Benefits Coordinator Chronic Care 12/27/2023 Attempted outreach Reason Comments Diabetes GERD Reports more frequen t heartburn Reason Onset Date Comments Pharmacy Benefits Coordinator Chronic Care 12/30/2023 PCC follow up, patient updated on Victoza change Reason Onset Date Comments Pharmacy Benefits Coordinator Chronic Care 01/07/2024 Pcc follow up Specialty Diagnoses / Procedures Referred By Contac t Referred To Contact FAMILY MEDICINE Diagnoses office visit Procedures OFFICE VISIT, EST PT., LEVEL 2 TC Self Famp Ag Acc Cfm [address] [place] [address] Referral ID Status Reason Start Date Expiration Date Visits Requested Visits Authorized [id number] Outside PCP OON/Self Pay Override 12/24/2023 04/02/2025 1 1 Reason Comments Rx Refills Reason Onset Date Comments Pharmacy Benefits Coordinator Chronic Care 02/13/2024 PCC follow up Reason Onset Date Comments Refill Request 02/12/2024 Reason Onset Date Comments Transition Of Care 02/26/2024 ER follow up, [place], 02/24/2024 Reason Comments Follow Up Insulin Usage Weight Problem Gain Reason Onset Date Comments Pharmacy Benefits Coordinator Chronic Care 03/03/2024 Attempted to contact patient with PCP medication instruction Reason Onset Date Comments Refill Request 03/09/2024 Reason Onset Date Comments Pharmacy Benefits Coordinator Chronic Care 03/19/2024 Attempted PCC follow up Reason Onset Date Comments Pharmacy Benefits Coordinator Chronic Care 03/19/2024 PCC follow up Reason Onset Date Comments Pharmacy Benefits Coordinator Chronic Care 04/03/2024 Attempted PCC follow up Reason Onset Date Comments Refill Request 04/07/2024 Reason Comments Patient Update No longer a patient Reason Onset Date Comments Pharmacy Benefits Coordinator- Other 05/08/2024 Discharged new PCP Assessment & [...] her labs done as soon as possible. Urology Teacher can take her tomorrow at 9 AM. [...] Care Teams (unrecognized sec tion and content) 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 Relationship Specialty Start Date End Date No, Physician [facility] PCP - General 08/07/19 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 Relationship Specialty Start Date End Date Ha Rivas APRN BINDERY WORKER-C [address] [place] [address] PCP - General Family Medicine 05/11/19 Cam Quarles APRN CNP [address] [place] [address] Nurse Practitioner 08/28/21 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 Relationship Specialty Start Date End Date No, Physician [facility] PCP - General 08/07/19 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 Relationship Specialty Start Date End Date No, Physician [facility] PCP - General 08/07/19 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 Relationship Specialty Start Date End Date Ha Rivas APRN FNP-C [address] [place] [phone] PCP - General Family Medicine 05/11/19 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 Relationship Specialty Start Date End Date No, Physician [facility] PCP - General 08/07/19 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 Relationship Specialty Start Date End Date No, Physician [facility] PCP - General 08/07/19 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 Relationship Specialty Start Date End Date No, Physician [facility] PCP - General 08/07/19 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 Relationship Specialty Start Date End Date No, Physician [facility] PCP - General 08/07/19 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 Relationship Specialty Start Date End Date No, Physician [facility] PCP - General 08/07/19 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 Relationship Specialty Start Date End Date Homar Vasques MD [address] [place], [place] [phone] PCP - General Family Medicine [facility] [address] [place] [address] Pharmacist Pharmacy 12/25/18 Williams Rubin MD [address] [facility] [place], [place] [phone] PCP Resident 01/22/23 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 Relationship Specialty Start Date End Date Homar Vasques MD [address] [place], [place] [phone] PCP - General Family Medicine 01/22/23 [facility] [address] [place] [address] Pharmacist Pharmacy 12/25/18 Williams Rubin MD [address] [facility] [address] [place], [place] [phone] PCP Resident 01/22/23 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 Relationship Specialty Start Date End Date Homar Vasques MD [address] [place], [place] [phone] PCP - General Family Medicine 01/22/23 JohnAby fair, [facility] [address] [place] [address] Pharmacist Pharmacy 12/25/18 Williams Rubin MD [address] [place] [address] PCP Resident 01/22/23 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 Relationship Specialty Start Date End Date Homar Vasques MD [address] [place] [address] PCP - General Family Medicine 01/22/23 [employer], [facility] [address] [place] [address] Pharmacist Pharmacy 12/25/18 Williams Rubin MD [address] [place] [address] PCP Resident 01/22/23 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 Relationship Specialty Start Date End Date Homar Vasques MD [address] [place] [address] PCP - General Family Medicine 01/22/23 [employer], [facility] [address] [place] [address] Pharmacist Pharmacy 12/25/18 Williams Rubin MD [address] [place], [place] [phone] PCP Resident 01/22/23 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 Relationship Specialty Start Date End Date Homar Vasques MD [address] [place] [address] PCP - General Family Medicine 01/22/23 Aby Lopez, [facility] [address] [place] [address] Pharmacist Pharmacy 12/25/18 Williams Rubin MD [address] [place] [address] PCP Resident 01/22/23 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 Relationship Specialty Start Date End Date Homar Vsaques MD [address] [place] [address] PCP - General Family Medicine 01/22/23 Aby Lopez, [facility] [address] [place] [address] Pharmacist Pharmacy 12/25/18 Williams Rubin MD [address] [place] [address] PCP Resident 01/22/23 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 Relationship Specialty Start Date End Date Homar Vasques MD [address] [place] [address] PCP - General Family Medicine 01/22/23 Aby Lopez, [facility] [address] [place] [address] Pharmacist Pharmacy 12/25/18 Williams Rubin MD [address] [place] [address] PCP Resident 01/22/23 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 Relationship Specialty Start Date End Date Homar Vasques MD [address] [address] [place], [place] [phone] PCP - General Family Medicine 01/22/23 [employer], [facility] [address] [place] [address] Pharmacist Pharmacy 12/25/18 Williams Rubin MD [address] [place] [address] PCP Resident 01/22/23 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 Relationship Specialty Start Date End Date Homar Vasques MD [address] [place], [place] [phone] PCP - General Family Medicine 01/22/23 [employer], [facility] [address] [place] [address] Pharmacist Pharmacy 12/25/18 Williams Rubin MD [address] [place] [address] PCP Resident 01/22/23 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 Relationship Specialty Start Date End Date Homar Vasques MD [address] [place] [address] PCP - General Family Medicine 01/22/23 [employer], [facility] [address] [place] [address] Pharmacist Pharmacy 12/25/18 Williams Rubin MD [address] [place] [address] PCP Resident 01/22/23 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 Relationship Specialty Start Date End Date Homar Vasques MD [address] [address] [place], [place] [phone] PCP - General Family Medicine 01/22/23 [employer], [facility] [address] [place] [address] Pharmacist Pharmacy 12/25/18 Williams Rubin MD [address] [place] [address] PCP Resident 01/22/23 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 Relationship Specialty Start Date End Date Homar Vasques MD [address] [address] [place], [place] [phone] PCP - General Family Medicine 01/22/23 [employer], [facility] [address] [place] [address] Pharmacist Pharmacy 12/25/18 Williams Rubin MD [address] [place] [address] PCP Resident 01/22/23 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 Relationship Specialty Start Date End Date Homar Vasques MD [address] [place] [address] PCP - General Family Medicine 01/22/23 [employer], [facility] [address] [place] [address] Pharmacist Pharmacy 12/25/18 Williams Rubin MD [address] [place] [address] PCP Resident Family Medicine 01/22/23 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 Relationship Specialty Start Date End Date Homar Vasques MD [address] [place] [address] PCP - General Family Medicine 01/22/23 Aby Lopez, [facility] [address] [place] [address] Pharmacist Pharmacy 12/25/18 Williams Rubin MD [address] [place] [address] PCP Resident Family Medicine 01/22/23 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 Relationship Specialty Start Date End Date Homar Vasques MD [address] [place] [address] PCP - General Family Medicine 01/22/23 Aby Lopez, [facility] [address] [place] [address] Pharmacist Pharmacy 12/25/18 Williams Rubin MD [address] [place] [address] PCP Resident Family Medicine 01/22/23 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 Relationship Specialty Start Date End Date Homar Vasques MD [address] [place] [address] PCP - General Family Medicine 01/22/23 Aby Lopez, [facility] [address] [place] [address] Pharmacist Pharmacy 12/25/18 Williams Rubin MD [address] [place] [address] PCP Resident Family Medicine 01/22/23 Jeanie Murphy, manager unionPharmacy Benefits Coordinator 04/05/23 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 Relationship Specialty Start Date End Date Homar Vasques MD [address] [place], [place] [phone] PCP - General Family Medicine 01/22/23 Aby Lopez, [facility] [address] [place] [address] Pharmacist Pharmacy 12/25/18 Williams Rubin MD [address] [place] [address] PCP Resident Family Medicine 01/22/23 Jeanie Murphy manager unionPharmacy Benefits Coordinator 04/05/23 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 Relationship Specialty Start Date End Date Homar Vasques MD [address] [place] [address] PCP - General Family Medicine 01/22/23 Williams Rubin MD [address] [place] [address] PCP Resident Family Medicine 01/22/23 Jeanie Murphy manager unionPharmacy Benefits Coordinator 04/05/23 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 Relationship Specialty Start Date End Date Homar Vasques MD [address] [place] [address] [place], [place] [phone] PCP - General Family Medicine 01/22/23 Williams Rubin MD [address] [place] [address] PCP Resident Family Medicine 01/22/23 Jeanie Murphy RN Pharmacy Benefits Coordinator 04/05/23 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 Relationship Specialty Start Date End Date Homar Vasques MD [address] [place], [place] [phone] PCP - General Family Medicine 01/22/23 Williams Rubin MD [address] [place] [address] PCP Resident Family Medicine 01/22/23 Jeanie Murphy RN Pharmacy Benefits Coordinator 04/05/23 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 Relationship Specialty Start Date End Date Homar Vasques MD [address] [place] [address] PCP - General Family Medicine 01/22/23 Williams Rubin MD [address] [place] [address] PCP Resident Family Medicine 01/22/23 Jeanie Murphy RN Pharmacy Benefits Coordinator 04/05/23 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 Relationship Specialty Start Date End Date Homar Vasques MD [address] [place] [address] PCP - General Family Medicine 01/22/23 Aby Lopez, [facility] [address] [place] [address] Pharmacist Pharmacy 12/25/18 04/16/23 Williams Rubin MD [address] [place], [place] [phone] PCP Resident Family Medicine 01/22/23 Jeanie Murphy RN Pharmacy Benefits Coordinator 04/05/23 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 Relationship Specialty Start Date End Date Homar Vasques MD [address] [place] [address] [place], [place] [phone] PCP - General Family Medicine 01/22/23 Williams Rubin MD [address] [place] [address] [place], [place] [phone] PCP Resident Family Medicine 01/22/23 Jeanie Murphy, manager unionPharmacy Benefits Coordinator 04/05/23 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 Relationship Specialty Start Date End Date Homar Vasques MD [address] [place] [address] [place], [place] [phone] PCP - General Family Medicine 01/22/23 Williams Rubin MD [address] [address] [place], [place] [phone] PCP Resident Family Medicine 01/22/23 Jeanie Murphy, manager unionPharmacy Benefits Coordinator 04/05/23 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 Relationship Specialty Start Date End Date Homar Vasques MD [address] [place] [address] [place], [place] [phone] PCP - General Family Medicine 01/22/23 Williams Rubin MD [address] [place] [address] [place], [place] [phone] PCP Resident Family Medicine 01/22/23 Jeanie Murphy, manager unionPharmacy Benefits Coordinator 04/05/23 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 Relationship Specialty Start Date End Date Homar Vasques MD [address] [place] [address] [place], [place] [phone] PCP - General Family Medicine 01/22/23 Williams Rubin MD [address] [place], [place] [phone] PCP Resident Family Medicine 01/22/23 Jeanie Murphy, manager unionPharmacy Benefits Coordinator 04/05/23 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 Relationship Specialty Start Date End Date Homar Vasques MD [address] [place], [place] [phone] PCP - General Family Medicine 01/22/23 Williams Rubin MD [address] [place] [address] [place], [place] [phone] PCP Resident Family Medicine 01/22/23 Jeanie Murphy RN Pharmacy Benefits Coordinator 04/05/23 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 Relationship Specialty Start Date End Date No, Physician [facility] PCP - General 08/07/19 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 Relationship Specialty Start Date End Date Homar Vasques MD [address] [place] [address] PCP - General Family Medicine 01/22/23 Williams Rubin MD [address] [place] [address] PCP Resident Family Medicine 01/22/23 Jeanie Murphy manager unionPharmacy Benefits Coordinator 04/05/23 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 Relationship Specialty Start Date End Date Homar Vasques MD [address] [place] [address] PCP - General Family Medicine 01/22/23 Williams Rubin MD [address] [address] [place], [place] [phone] PCP Resident Family Medicine 01/22/23 Jeanie Murphy manager unionPharmacy Benefits Coordinator 04/05/23 Team Status: Active Member Role Status Dates Dr. Thomas Hull MD Family Provider Active No Primary Care Physician Primary Care Provider Active Team Status: Inactive Member Role Status Dates Dr. Jose R Phillips MD Emergency Provider Active No Primary Care Physician Primary Care Provider Active 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 Relationship Specialty Start Date End Date Homar Vasques MD [address] [place] [address] [place], [place] [phone] PCP - General Family Medicine 01/22/23 Williams Rubin MD [address] [place] [address] [place], [place] [phone] PCP Resident Family Medicine 01/22/23 Jeanie Murphy, manager unionPharmacy Benefits Coordinator 04/05/23 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 Relationship Specialty Start Date End Date Homar Vasques MD [address] [place] [address] [place], [place] [phone] PCP - General Family Medicine 01/22/23 Williams Rubin MD [address] [place] [address] [place], [place] [phone] PCP Resident Family Medicine 01/22/23 Jeanie Murphy, manager unionPharmacy Benefits Coordinator 04/05/23 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 Relationship Specialty Start Date End Date Homar Vasques MD [address] [place] [address] PCP - General Family Medicine 01/22/23 Williams Rubin MD [address] [address] [place], [place] [phone] PCP Resident Family Medicine 01/22/23 Jeanie Murphy, manager unionPharmacy Benefits Coordinator 04/05/23 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 Relationship Specialty Start Date End Date Homar Vasques MD [address] [place] [address] [place], [place] [phone] PCP - General Family Medicine 01/22/23 Williams Rubin MD [address] [place] [address] PCP Resident Family Medicine 01/22/23 Jeanie Murphy, manager unionPharmacy Benefits Coordinator 04/05/23 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 Relationship Specialty Start Date End Date Homar Vasques MD [address] [place] [address] [place], [place] [phone] PCP - General Family Medicine 01/22/23 Williams Rubin MD [address] [address] [place], [place] [phone] PCP Resident Family Medicine 01/22/23 Jeanie Murphy, manager unionPharmacy Benefits Coordinator 04/05/23 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 Relationship Specialty Start Date End Date Homar Vasques MD [address] [place] [address] [place], [place] [phone] PCP - General Family Medicine 01/22/23 Williams Rubin MD [address] [place] [address] [place], [place] [phone] PCP Resident Family Medicine 01/22/23 Jeanie Murphy, manager unionPharmacy Benefits Coordinator 04/05/23 Sonia Carrera, [facility] [address] [address] [address] Pharmacy 12/05/23 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 Relationship Specialty Start Date End Date Homar Vasques MD [address] [place] [address] [place], [place] [phone] PCP - General Family Medicine 01/22/23 Williams Rubin MD [address] [place] [address] [place], [place] [phone] PCP Resident Family Medicine 01/22/23 Jeanie Murphy manager unionPharmacy Benefits Coordinator 04/05/23 Sonia Carrera [facility] [address] [phone] Pharmacy 12/05/23 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 Relationship Specialty Start Date End Date Homar Vasques MD [address] [place] [address] [place], [place] [phone] PCP - General Family Medicine 01/22/23 Williams Rubin MD [address] [place], [place] [phone] PCP Resident Family Medicine 01/22/23 Jeanie Murphy RN Pharmacy Benefits Coordinator 04/05/23 Sonia Carrera [facility] [address] [phone] Pharmacy 12/05/23 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 Relationship Specialty Start Date End Date Homar Vasques MD [address] [place], [place] [address] PCP - General Family Medicine 01/22/23 Williams Rubin MD [address] [place], [place] [address] PCP Resident Family Medicine 01/22/23 Jeanie Murphy RN Pharmacy Benefits Coordinator 04/05/23 Sonia Carrera [facility] [address] [phone] Pharmacy 12/05/23 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 Relationship Specialty Start Date End Date Homar Vasques MD [address] [address] [place], [place] [phone] PCP - General Family Medicine 01/22/23 Williams Rubin MD [address] [place] [address] [place], [place] [phone] PCP Resident Family Medicine 01/22/23 Jeanie Murphy, manager unionPharmacy Benefits Coordinator 04/05/23 Sonia Carrera [facility] [address] [phone] Pharmacist Pharmacy 12/05/23 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 Relationship Specialty Start Date End Date Homar Vasques MD [address] [place] [address] [place], [place] [phone] PCP - General Family Medicine 01/22/23 Williams Rubin MD [address] [place], [place] [address] PCP Resident Family Medicine 01/22/23 Jeanie Murphy manager unionPharmacy Benefits Coordinator 04/05/23 Sonia Carrera [facility] [address] [address] [phone] Pharmacist Pharmacy 12/05/23 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 Relationship Specialty Start Date End Date Homar Vasques MD [address] [place] [address] [place], [place] [phone] PCP - General Family Medicine 01/22/23 Williams Rubin MD [address] [place], [place] [phone] PCP Resident Family Medicine 01/22/23 Jeanie Murphy, manager unionPharmacy Benefits Coordinator 04/05/23 Sonia Carrera, [facility] [address] [address] [phone] Pharmacist Pharmacy 12/05/23 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 Relationship Specialty Start Date End Date Homar Vasques MD [address] [place] [address] [place], [place] [phone] PCP - General Family Medicine 01/22/23 Williams Rubin MD [address] [address] [place], [place] [phone] PCP Resident Family Medicine 01/22/23 Jeanie Murphy, manager unionPharmacy Benefits Coordinator 04/05/23 Sonia Carrera, [facility] [address] [phone] Pharmacist Pharmacy 12/05/23 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 Relationship Specialty Start Date End Date Homar Vasques MD [address] [place] [address] [place], [place] [phone] PCP - General Family Medicine 01/22/23 Williams Rubin MD [address] [address] [place], [place] [phone] PCP Resident Family Medicine 01/22/23 Jeanie Murphy manager unionPharmacy Benefits Coordinator 04/05/23 Sonia Carrera, [facility] [address] [address] [address] Pharmacist Pharmacy 12/05/23 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 Relationship Specialty Start Date End Date Homar Vasques MD [address] [place] [address] [place], [place] [phone] PCP - General Family Medicine 01/22/23 Williams Rubin MD [address] [place], [place] [phone] PCP Resident Family Medicine 01/22/23 Jeanie Murphy, RN Pharmacy Benefits Coordinator 04/05/23 Sonia Carrera [facility] [address] [address] Pharmacist Pharmacy 12/05/23 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 Relationship Specialty Start Date End Date Homar Vasques MD [address] [place] [address] [place], [place] [phone] PCP - General Family Medicine 01/22/23 Williams Rubin MD [address] [address] [place], [place] [phone] PCP Resident Family Medicine 01/22/23 Jeanie Murphy, RN Pharmacy Benefits Coordinator 04/05/23 [facility] [address] [phone] Pharmacist Pharmacy 12/05/23 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 Relationship Specialty Start Date End Date Homar Vasques MD [address] [place] [address] [place], [place] [address] PCP - General Family Medicine 01/22/23 Williams Rubin MD [address] [place], [place] [address] PCP Resident Family Medicine 01/22/23 Jeanie Murphy RN Pharmacy Benefits Coordinator 04/05/23 Sonia Carrera, [facility] [address] [phone] Pharmacist Pharmacy 12/05/23 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 Relationship Specialty Start Date End Date Homar Vasques MD [address] [place] [address] [place], [place] [phone] PCP - General Family Medicine 01/22/23 Williams Rubin MD [address] [place], [place] [phone] PCP Resident Family Medicine 01/22/23 Jeanie Murphy RN Pharmacy Benefits Coordinator 04/05/23 Sonia Carrera, [facility] [address] [phone] Pharmacist Pharmacy 12/05/23 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 Relationship Specialty Start Date End Date Homar Vasques MD [address] [place] [address] [place], [place] [phone] PCP - General Family Medicine 01/22/23 Williams Rubin MD [address] [place], [place] [address] PCP Resident Family Medicine 01/22/23 Jeanie Murphy RN Pharmacy Benefits Coordinator 04/05/23 Sonia Carrera [facility] [address] [phone] Pharmacist Pharmacy 12/05/23 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 Relationship Specialty Start Date End Date Homar Vasques MD [address] [address] [place], [place] [phone] PCP - General Family Medicine 01/22/23 Williams Rubin MD [address] [place], [place] [phone] PCP Resident Family Medicine 01/22/23 Jeanie Murphy RN Pharmacy Benefits Coordinator 04/05/23 Sonia Carrera [facility] [address] [phone] Pharmacist Pharmacy 12/05/23 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 Relationship Specialty Start Date End Date Homar Vasques MD [address] [address] [place], [place] [phone] PCP - General Family Medicine 01/22/23 Williams Rubin MD [address] [place] [address] [place], [place] [phone] PCP Resident Family Medicine 01/22/23 Jeanie Murphy RN Pharmacy Benefits Coordinator 04/05/23 Sonia Carrera [facility] [address] [phone] Pharmacist Pharmacy 12/05/23 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 Lissteh Peñaloza MD Primary Care Provider Active Start: [...] End: November 26, 2024 Dr. Javy Saul DO [...] 2024 End: November 26, 2024 Dr. Clifton Aelxander MD Other Provider Active Start: November 20, 2024 End: November 26, 2024 Dr. Clifford Cody MD Other Provider Active Star t: November 20, 2024 End: November 26, 2024 Dr. Deon Mcclellan DO Other Provider Active Start : November 20, 2024 End: November 26, 2024 Dr. Jeanie Hunt MD Other Provider Active Sta rt: November 20, 2024 End: November 26, 2024 Dr. Rajan De La Cruz MD Other Provider Active St art: November 20, 2024 End: November 26, 2024 Dr. Scout Curry MD Other Provider Active S tart: November 20, 2024 End: November 26, 2024 Dr. Glneys Mcmahan MD Other Provider Active Start: November [...] , Other Provider Active St art: November 20, [...] Star t: November 21, 2024 Dr. Deon Mcclellan DO Other Provider Active Start : November 21, [...] t: November 21, 2024 Dr. Flash [place] , DO Other Provider Active St art: November 21, 2024 Dr. Lida Falcon MD Other Provider Active Start: November 21, 2024 Dr. Jhony Zhang MD Other Provider Active St art: November 21, 2024 Dr. Varun Collier , Other Provider Active Start: November 21, 2024 [...] t: November 22, 2024 Dr. Haider Smith DO Attending Provider Active Start: November 22, 2024 Dr. Haider Smith DO Other Provider Active Star t: November 22, 2024 Dr. Karthik Tang MD Other Provider Active Start: November 22, 2024 Dr. Clifton Alexander MD Other Provider Active Start: November 22, 2024 Dr. Clifford Cody MD Other Provider Active Star t: November 22, 2024 Dr. Deon Mcclellan , Other Provider Active Start : November [...] Star t: November 22, 2024 Dr. Deon Mcclellan , DO Other Provider Active Start : [...] Provider Active Start: November 22, 2024 Dr. eJsus Varela MD Other Provider Active Start : [...] t: November 22, 2024 Dr. Flash [place] DO Other Provider Active St art: November 22, 2024 Dr. Lida Falcon MD Other Provider Active Start: November 22, 2024 Dr. Jhony Zhang MD Other Provider Active St art: November 22, 2024 Dr. Varun Collier DO Other Provider Active Start: November 22, [...] Start: November 23, 2024 Dr. Javy Saul DO Emergency Provider Active Start: November 23, 2024 Dr. Mariah Brewer MD Admit Provider Active Star t: November 23, 2024 Dr. Mariah Brewer MD Other Provider Active Star t: November 23, 2024 Dr. Haider Smith , DO Attending Provider Active Start: November 23, 2024 Dr. Haider Smith , DO Other Provider Active Star t: November 23, 2024 Dr. Karthik Tang MD Other Provider Active Start: November 23, 2024 Dr. Clifton Alexander MD Other Provider Active Start: November 23, 2024 Dr. Clifford Cody MD Other Provider Active Star t: November 23, 2024 Dr. Deon Mcclellan , DO Other Provider Active Start : November 23, [...] November 23, 2024 Dr. Varun Collier , Other Provider Active Start: November 23, 2024 [...] November 23, 2024 Dr. Javy Saul , DO Emergency Provider Active Start: November 23, 2024 Dr. Mariah Brewer MD Admit Provider Active Star t: November 23, 2024 Dr. Mariah Brewer MD Other Provider Active Star t: November 23, 2024 Dr. Haider Smith , DO Other Provider Active Star t: November 23, 2024 Dr. Karthik Tang MD Other Provider Active Start: November 23, 2024 Dr. lCifton Alexander MD Other Provider Active Start: November 23, 2024 Dr. Clifford Cody MD Other Provider Active Star t: November 23, 2024 Dr. Deon Mcclellan , DO Other Provider Active Start : November 23, [...] November 23, 2024 Dr. Varun Collier , Other Provider Active Start: November 23, 2024 [...] November 24, 2024 Dr. Haider Smith , Other Provider Active Star t: November 24, 2024 Dr. Karthik Tang MD Other Provider Active Start: November 24, 2024 Dr. Clifton Alexander MD Other Provider Active Start: November 24, 2024 Dr. Clifford Cody MD Other Provider Active Star t: November 24, 2024 Dr. Deon Mcclellan , Other Provider Active Start : November [...] art: November 24, 2024 Dr. Varun Collier DO Other Provider Active Start: November 24, [...] Start: November 24, 2024 Dr. Javy Saul DO Emergency Provider Active Start: November 24, [...] Star t: November 24, 2024 Dr. Deon Mcclellan , Other Provider Active Start : November [...] t: November 25, 2024 Dr. Haider Smith , Attending Provider Active Start: November 25, 2024 Dr. Haider Smith , Other Provider Active Star t: November 25, 2024 Dr. Karthik Tang MD Other Provider Active Start: November 25, 2024 Dr. Clifton Alexander MD Other Provider Active Start: November 25, 2024 Dr. Clifford Cody MD Other Provider Active Star t: November 25, 2024 Dr. Deon Mcclellan , Other Provider Active Start : November [...] t: November 25, 2024 Dr. Flash [place] , DO Other Provider Active St art: November 25, 2024 Dr. Lida Falcon MD Other Provider Active Start: November 25, 2024 Dr. Jhony Zhang MD Other Provider Active St art: November 25, 2024 Dr. Varun Collier , Other Provider Active Start: November 25, 2024 [...] Star t: November 26, 2024 Dr. Deon Mcclellan DO Other Provider Active Start : November 26, 2024 Dr. Jeanie Hunt MD [...] art: November 26, 2024 Dr. Haider Smith , Other Provider Active Star t: November 27, [...] December 09, 2024 End: December 09, 2024 Jay KUMAR PA Attending Provider Active St art: December 09, [...] or prosecute any alcohol or drug abuse patient.[facility] CenterIn the event this information is protected by the Federal Confidentiality of Alcohol and Drug Abuse Patient Records regulations: The Federal rules restrict any use of the information to criminally investigate or prosecute any alcohol or drug abuse patient.[facility] CenterIn the event this information is protected by the Federal Confidentiality of Alcohol and Drug Abuse Patient Records regulations: The Federal rules restrict any use of the information to criminally investigate or prosecute any alcohol or drug abuse patient.[facility] CenterIn the event this information is protected by the Federal Confidentiality of Alcohol and Drug Abuse Patient Records regulations: The Federal rules restrict any use of the information to criminally investigate or prosecute any alcohol or drug abuse patient.[facility] CenterIn the event this information is protected by the Federal Confidentiality of Alcohol and Drug Abuse Patient Records regulations: The Federal rules restrict any use of the information to criminally investigate or prosecute any alcohol or drug abuse patient.[facility] CenterIn the event this information is protected by the Federal Confidentiality of Alcohol and Drug Abuse Patient Records regulations: The Federal rules restrict any use of the information to criminally investigate or prosecute any alcohol or drug abuse patient.[facility] CenterIn the event this information is protected by the Federal Confidentiality of Alcohol and Drug Abuse Patient Records regulations: The Federal rules restrict any use of the information to criminally investigate or prosecute any alcohol or drug abuse patient.[facility] CenterIn the event this information is protected by the Federal Confidentiality of Alcohol and Drug Abuse Patient Records regulations: The Federal rules restrict any use of the information to criminally investigate or prosecute any alcohol or drug abuse patient.[facility] CenterIn the event this information is protected by the Federal Confidentiality of Alcohol and Drug Abuse Patient Records regulations: The Federal rules restrict any use of the information to criminally investigate or prosecute any alcohol or drug abuse patient.[facility] CenterIn the event this information is protected by the Federal Confidentiality of Alcohol and Drug Abuse Patient Records regulations: The Federal rules restrict any use of the information to criminally investigate or prosecute any alcohol or drug abuse patient.[facility] CenterIn the event this information is protected by the Federal Confidentiality of Alcohol and Drug Abuse Patient Records regulations: The Federal rules restrict any use of the information to criminally investigate or prosecute any alcohol or drug abuse patient.[facility] CenterIn the event this information is protected by the Federal Confidentiality of Alcohol and Drug Abuse Patient Records regulations: The Federal rules restrict any use of the information to criminally investigate or prosecute any alcohol or drug abuse patient.[facility] CenterIn the event this information is protected by the Federal Confidentiality of Alcohol and Drug Abuse Patient Records regulations: The Federal rules restrict any use of the information to criminally investigate or prosecute any alcohol or drug abuse patient.[facility] CenterIn the event this information is protected by the Federal Confidentiality of Alcohol and Drug Abuse Patient Records regulations: The Federal rules restrict any use of the information to criminally investigate or prosecute any alcohol or drug abuse patient.[facility] CenterIn the event this information is protected by the Federal Confidentiality of Alcohol and Drug Abuse Patient Records regulations: The Federal rules restrict any use of the information to criminally investigate or prosecute any alcohol or drug abuse patient.[facility] CenterIn the event this information is protected by the Federal Confidentiality of Alcohol and Drug Abuse Patient Records regulations: The Federal rules restrict any use of the information to criminally investigate or prosecute any alcohol or drug abuse patient.[facility] CenterIn the event this information is protected by the Federal Confidentiality of Alcohol and Drug Abuse Patient Records regulations: The Federal rules restrict any use of the information to criminally investigate or prosecute any alcohol or drug abuse patient.[facility] CenterIn the event this information is protected by the Federal Confidentiality of Alcohol and Drug Abuse Patient Records regulations: The Federal rules restrict any use of the information to criminally investigate or prosecute any alcohol or drug abuse patient.[facility] CenterIn the event this information is protected by the Federal Confidentiality of Alcohol and Drug Abuse Patient Records regulations: The Federal rules restrict any use of the information to criminally investigate or prosecute any alcohol or drug abuse patient.[facility] CenterIn the event this information is protected by the Federal Confidentiality of Alcohol and Drug Abuse Patient Records regulations: The Federal rules restrict any use of the information to criminally investigate or prosecute any alcohol or drug abuse patient.[facility] CenterIn the event this information is protected by the Federal Confidentiality of Alcohol and Drug Abuse Patient Records regulations: The Federal rules restrict any use of the information to criminally investigate or prosecute any alcohol or drug abuse patient.[facility] CenterIn the event this information is protected by the Federal Confidentiality of Alcohol and Drug Abuse Patient Records regulations: The Federal rules restrict any use of the information to criminally investigate or prosecute any alcohol or drug abuse patient.[facility] CenterIn the event this information is protected by the Federal Confidentiality of Alcohol and Drug Abuse Patient Records regulations: The Federal rules restrict any use of the information to criminally investigate or prosecute any alcohol or drug abuse patient.[facility] CenterIn the event this information is protected by the Federal Confidentiality of Alcohol and Drug Abuse Patient Records regulations: The Federal rules restrict any use of the information to criminally investigate or prosecute any alcohol or drug abuse patient.[facility] CenterIn the event this information is protected by the Federal Confidentiality of Alcohol and Drug Abuse Patient Records regulations: The Federal rules restrict any use of the information to criminally investigate or prosecute any alcohol or drug abuse patient.[facility] CenterIn the event this information is protected by the Federal Confidentiality of Alcohol and Drug Abuse Patient Records regulations: The Federal rules restrict any use of the information to criminally investigate or prosecute any alcohol or drug abuse patient.[facility] CenterIn the event this information is protected by the Federal Confidentiality of Alcohol and Drug Abuse Patient Records regulations: The Federal rules restrict any use of the information to criminally investigate or prosecute any alcohol or drug abuse patient.[facility] CenterIn the event this information is protected by the Federal Confidentiality of Alcohol and Drug Abuse Patient Records regulations: The Federal rules restrict any use of the information to criminally investigate or prosecute any alcohol or drug abuse patient.[facility] CenterIn the event this information is protected by the Federal Confidentiality of Alcohol and Drug Abuse Patient Records regulations: The Federal rules restrict any use of the information to criminally investigate or prosecute any alcohol or drug abuse patient.[facility] CenterIn the event this information is protected by the Federal Confidentiality of Alcohol and Drug Abuse Patient Records regulations: The Federal rules restrict any use of the information to criminally investigate or prosecute any alcohol or drug abuse patient.[facility] CenterIn the event this information is protected by the Federal Confidentiality of Alcohol and Drug Abuse Patient Records regulations: The Federal rules restrict any use of the information to criminally investigate or prosecute any alcohol or drug abuse patient.[facility] CenterIn the event this information is protected by the Federal Confidentiality of Alcohol and Drug Abuse Patient Records regulations: The Federal rules restrict any use of the information to criminally investigate or prosecute any alcohol or drug abuse patient.[facility] CenterIn the event this information is protected by the Federal Confidentiality of Alcohol and Drug Abuse Patient Records regulations: The Federal rules restrict any use of the information to criminally investigate or prosecute any alcohol or drug abuse patient.[facility] CenterIn the event this information is protected by the Federal Confidentiality of Alcohol and Drug Abuse Patient Records regulations: The Federal rules restrict any use of the information to criminally investigate or prosecute any alcohol or drug abuse patient.[facility] CenterIn the event this information is protected by the Federal Confidentiality of Alcohol and Drug Abuse Patient Records regulations: The Federal rules restrict any use of the information to criminally investigate or prosecute any alcohol or drug abuse patient.[facility] CenterIn the event this information is protected by the Federal Confidentiality of Alcohol and Drug Abuse Patient Records regulations: The Federal rules restrict any use of the information to criminally investigate or prosecute any alcohol or drug abuse patient.[facility] CenterIn the event this information is protected by the Federal Confidentiality of Alcohol and Drug Abuse Patient Records regulations: The Federal rules restrict any use of the information to criminally investigate or prosecute any alcohol or drug abuse patient.[facility] CenterIn the event this information is protected by the Federal Confidentiality of Alcohol and Drug Abuse Patient Records regulations: The Federal rules restrict any use of the information to criminally investigate or prosecute any alcohol or drug abuse patient.[facility] CenterIn the event this information is protected by the Federal Confidentiality of Alcohol and Drug Abuse Patient Records regulations: The Federal rules restrict any use of the information to criminally investigate or prosecute any alcohol or drug abuse patient.[facility] CenterIn the event this information is protected by the Federal Confidentiality of Alcohol and Drug Abuse Patient Records regulations: The Federal rules restrict any use of the information to criminally investigate or prosecute any alcohol or drug abuse patient.[facility] CenterIn the event this information is protected by the Federal Confidentiality of Alcohol and Drug Abuse Patient Records regulations: The Federal rules restrict any use of the information to criminally investigate or prosecute any alcohol or drug abuse patient.[facility] CenterIn the event this information is protected by the Federal Confidentiality of Alcohol and Drug Abuse Patient Records regulations: The Federal rules restrict any use of the information to criminally investigate or prosecute any alcohol or drug abuse patient.[facility] CenterIn the event this information is protected by the Federal Confidentiality of Alcohol and Drug Abuse Patient Records regulations: The Federal rules restrict any use of the information to criminally investigate or prosecute any alcohol or drug abuse patient.[facility] CenterIn the event this information is protected by the Federal Confidentiality of Alcohol and Drug Abuse Patient Records regulations: The Federal rules restrict any use of the information to criminally investigate or prosecute any alcohol or drug abuse patient.[facility] CenterIn the event this information is protected by the Federal Confidentiality of Alcohol and Drug Abuse Patient Records regulations: The Federal rules restrict any use of the information to criminally investigate or prosecute any alcohol or drug abuse patient.[facility] CenterIn the event this information is protected by the Federal Confidentiality of Alcohol and Drug Abuse Patient Records regulations: The Federal rules restrict any use of the information to criminally investigate or prosecute any alcohol or drug abuse patient.[facility] CenterIn the event this information is protected by the Federal Confidentiality of Alcohol and Drug Abuse Patient Records regulations: The Federal rules restrict any use of the information to criminally investigate or prosecute any alcohol or drug abuse patient.[facility] CenterIn the event this information is protected by the Federal Confidentiality of Alcohol and Drug Abuse Patient Records regulations: The Federal rules restrict any use of the information to criminally investigate or prosecute any alcohol or drug abuse patient.[facility] CenterIn the event this information is protected by the Federal Confidentiality of Alcohol and Drug Abuse Patient Records regulations: The Federal rules restrict any use of the information to criminally investigate or prosecute any alcohol or drug abuse patient.[facility] CenterIn the event this information is protected by the Federal Confidentiality of Alcohol and Drug Abuse Patient Records regulations: The Federal rules restrict any use of the information to criminally investigate or prosecute any alcohol or drug abuse patient.[facility] CenterIn the event this information is protected by the Federal Confidentiality of Alcohol and Drug Abuse Patient Records regulations: The Federal rules restrict any use of the information to criminally investigate or prosecute any alcohol or drug abuse patient.[facility] CenterIn the event this information is protected by the Federal Confidentiality of Alcohol and Drug Abuse Patient Records regulations: The Federal rules restrict any use of the information to criminally investigate or prosecute any alcohol or drug abuse patient.[facility] CenterIn the event this information is protected by the Federal Confidentiality of Alcohol and Drug Abuse Patient Records regulations: The Federal rules restrict any use of the information to criminally investigate or prosecute any alcohol or drug abuse patient.[facility] CenterIn the event this information is protected by the Federal Confidentiality of Alcohol and Drug Abuse Patient Records regulations: The Federal rules restrict any use of the information to criminally investigate or prosecute any alcohol or drug abuse patient.[facility] CenterIn the event this information is protected by the Federal Confidentiality of Alcohol and Drug Abuse Patient Records regulations: The Federal rules restrict any use of the information to criminally investigate or prosecute any alcohol or drug abuse patient.[facility] CenterIn the event this information is protected by the Federal Confidentiality of Alcohol and Drug Abuse Patient Records regulations: The Federal rules restrict any use of the information to criminally investigate or prosecute any alcohol or drug abuse patient.[facility] CenterIn the event this information is protected by the Federal Confidentiality of Alcohol and Drug Abuse Patient Records regulations: The Federal rules restrict any use of the information to criminally investigate or prosecute any alcohol or drug abuse patient.[facility] CenterIn the event this information is protected by the Federal Confidentiality of Alcohol and Drug Abuse Patient Records regulations: The Federal rules restrict any use of the information to criminally investigate or prosecute any alcohol or drug abuse patient.[facility] CenterIn the event this information is protected by the Federal Confidentiality of Alcohol and Drug Abuse Patient Records regulations: The Federal rules restrict any use of the information to criminally investigate or prosecute any alcohol or drug abuse patient.[facility] CenterIn the event this information is protected by the Federal Confidentiality of Alcohol and Drug Abuse Patient Records regulations: The Federal rules restrict any use of the information to criminally investigate or prosecute any alcohol or drug abuse patient.[facility] CenterIn the event this information is protected by the Federal Confidentiality of Alcohol and Drug Abuse Patient Records regulations: The Federal rules restrict any use of the information to criminally investigate or prosecute any alcohol or drug abuse patient.[facility] CenterIn the event this information is protected by the Federal Confidentiality of Alcohol and Drug Abuse Patient Records regulations: The Federal rules restrict any use of the information to criminally investigate or prosecute any alcohol or drug abuse patient.[facility] CenterIn the event this information is protected by the Federal Confidentiality of Alcohol and Drug Abuse Patient Records regulations: The Federal rules restrict any use of the information to criminally investigate or prosecute any alcohol or drug abuse patient.[facility] CenterIn the event this information is protected by the Federal Confidentiality of Alcohol and Drug Abuse Patient Records regulations: The Federal rules restrict any use of the information to criminally investigate or prosecute any alcohol or drug abuse patient.[facility] CenterIn the event this information is protected by the Federal Confidentiality of Alcohol and Drug Abuse Patient Records regulations: The Federal rules restrict any use of the information to criminally investigate or prosecute any alcohol or drug abuse patient.[facility] CenterIn the event this information is protected by the Federal Confidentiality of Alcohol and Drug Abuse Patient Records regulations: The Federal rules restrict any use of the information to criminally investigate or prosecute any alcohol or drug abuse patient.[facility] CenterIn the event this information is protected by the Federal Confidentiality of Alcohol and Drug Abuse Patient Records regulations: The Federal rules restrict any use of the information to criminally investigate or prosecute any alcohol or drug abuse patient.[facility] CenterIn the event this information is protected by the Federal Confidentiality of Alcohol and Drug Abuse Patient Records regulations: The Federal rules restrict any use of the information to criminally investigate or prosecute any alcohol or drug abuse patient.[facility] CenterIn the event this information is protected by the Federal Confidentiality of Alcohol and Drug Abuse Patient Records regulations: The Federal rules restrict any use of the information to criminally investigate or prosecute any alcohol or drug abuse patient.[facility] CenterIn the event this information is protected by the Federal Confidentiality of Alcohol and Drug Abuse Patient Records regulations: The Federal rules restrict any use of the information to criminally investigate or prosecute any alcohol or drug abuse patient.[facility] CenterIn the event this information is protected by the Federal Confidentiality of Alcohol and Drug Abuse Patient Records regulations: The Federal rules restrict any use of the information to criminally investigate or prosecute any alcohol or drug abuse patient.[facility] CenterIn the event this information is protected by the Federal Confidentiality of Alcohol and Drug Abuse Patient Records regulations: The Federal rules restrict any use of the information to criminally investigate or prosecute any alcohol or drug abuse patient.[facility]In the event this information is protected by the Federal Confidentiality of Alcohol and Drug Abuse Patient Records regulations: The Federal rules restrict any use of the information to criminally investigate or prosecute any alcohol or drug abuse patient.[facility]In the event this information is protected by the Federal Confidentiality of Alcohol and Drug Abuse Patient Records regulations: The Federal rules restrict any use of the information to criminally investigate or prosecute any alcohol or drug abuse patient.[facility] CenterIn the event this information is protected by the Federal Confidentiality of Alcohol and Drug Abuse Patient Records regulations: The Federal rules restrict any use of the information to criminally investigate or prosecute any alcohol or drug abuse patient.[facility] CenterIn the event this information is protected by the Federal Confidentiality of Alcohol and Drug Abuse Patient Records regulations: The Federal rules restrict any use of the information to criminally investigate or prosecute any alcohol or drug abuse patient.[facility] CenterIn the event this information is protected by the Federal Confidentiality of Alcohol and Drug Abuse Patient Records regulations: The Federal rules restrict any use of the information to criminally investigate or prosecute any alcohol or drug abuse patient.[facility] FOR RECORDS PERTAINING TO PATIENTS WHO ARE [...] BE BASED ON THE PRIMARY CLINICAL RECORDS. [facility]. provides no warranty or guarantee of the accuracy or completeness of information in this document.
[2024-12-20 21:53] LABS: Erythrocyte Sedimentation Rate 7 mm/hr (0-30)
[2024-12-20] MEDS: Acetaminophen 325 MG Tablet 650 MG PO (22:38)
[2024-12-20] MEDS: 0.9% Normal Saline (1000mL) 1,000 ML 100 ML IV (22:40)
[2024-12-20 22:47] LABS: Reflex Lactate? Y
--- NOTE | 2024-12-20 22:52 | PCM.RX.CS ---
Consult Antibiotic Management Pharmacy has been consulted to manage selected antibiotic: Vancomycin Type of Intervention Type of Consult: New start Suspected Infection Suspected Infection: Bacteremia Labs Labs: Sodium 133 mmol/L (133-145) 12/20/24 18:40 Potassium 4.5 mmol/L (3.3-5.1) 12/20/24 18:40 Chloride 96 mmol/L (98-108) L 12/20/24 18:40 Carbon Dioxide 24.3 mmol/L (21.0-32.0) 12/20/24 18:40 Anion Gap 12 (5-15) 12/20/24 18:40 BUN 12 mg/dL (4-19) 12/20/24 18:40 Creatinine 0.99 mg/dL (0.70-1.20) 12/20/24 18:40 Est GFR (MDRD) Non-Af 66 (>60) 12/20/24 18:40 BUN/Creatinine Ratio 11.9 RATIO (10-20) 12/20/24 18:40 Glucose 347 mg/dL (70-99) H 12/20/24 18:40 Random Vancomycin < 4.0 ug/mL (0.0-15.0) 12/20/24 18:40 Dosing Weight Weight used for dosin kg Estimated Creatinine Clearance Estimated Creatinine Clearance: 84 Goal Trough Goal Trough: 15-20 mcg/mL Pharmacy Plan for Drug Dosing Pharmacy Plan for Drug Dosing: Pharmacy Service will continue to monitor and adjust dosing as required. Follow-Up Labs Follow-Up Labs: Trough: Vancomycin Date/Time Labs Ordered Labs to be done on [date and time ordered]: 12/22/24 @0738
[2024-12-20 23:00] LABS: Bedside Glucose 315 mg/dL (74-106)
[2024-12-20] MEDS: Atorvastatin Calcium 10 MG Tablet PO (23:29)
[2024-12-20] MEDS: Pramipexole Di-HCl 0.25 MG Tablet PO (23:29)
[2024-12-20] MEDS: Carvedilol 25 MG Tablet PO (23:29)
[2024-12-20] MEDS: SACUBITRIL/VALSARTAN 24/26 MG TABLET 1 EACH PO (23:29)
[2024-12-20] MEDS: Pantoprazole Sodium 40 MG in 0.9% Normal Saline (100mL MB+) 100 ML 330 MG IV (23:30)
[2024-12-20] MEDS: DULoxetine Hcl 60 MG Capsule PO (23:30)
[2024-12-20] MEDS: Insulin Glargine-YFGN 100 UNIT/ML Pen 40 UNIT SC (23:30)
[2024-12-20] MEDS: Insulin Lispro 100 UNIT/ML INSULN.PEN SC (23:30)
[2024-12-20 23:36] LABS: Lactic Acid 1.8 mmol/L (0.0-2.0)
[2024-12-21] VITALS (7 sets, daily range): BP systolic 98–107; BP diastolic 59–69; PULSE 66–102; RESP 16–18; TEMP 36.4–37.7; O2SAT 92–95; BMI 37.8
[2024-12-21] MEDS: Insulin Lispro 100 UNIT/ML INSULN.PEN SC ×3 (05:43→17:25)
[2024-12-21] MEDS: Ketorolac 15 MG/ML Vial IV ×3 (05:43→23:37)
[2024-12-21 06:45] LABS: Bedside Glucose 248 mg/dL (74-106)
[2024-12-21 08:00] LABS: Absolute Lymphocyte Count 1.29 X10^3/uL (0.83-4.51); Absolute Neutrophil Count 8.1 X10^3/uL (2.0-7.7); Basophil# 0.05 X10^3/uL; Basophil% 0.5 % (0-1); Eosinophil# 0.01 X10^3/uL; Eosinophils% 0.1 % (0-5); Hematocrit 33.3 % (37-47); Hemoglobin 11.1 g/dL (12.0-15.0); Lymphocyte # 1.29 X10^3/ul (0.83-4.51); Lymphocyte % 12.6 % (19-41); Mean Corp Hgb Conc 33.3 g/dL (32-36); Mean Corpuscular Hgb 29.5 pg (27.0-32.0); Mean Corpuscular Volume 88.6 fL (81-99); Monocyte# 0.78 X10^3/uL; Monocyte% 7.6 % (0-10); NRBC Flagged by Analyzer 0 % (0-5); Neutrophil # 8.08 X10^3/uL (2.7-7.7); Neutrophil % 78.8 % (47-70); Platelet Count 115 K/mm3 (150-450); RBC Distribution Width CV 14.6 % (11.6-14.6); Red Blood Count 3.76 M/mm3 (4.2-5.4); White Blood Count 10.3 K/mm3 (4.4-11.0)
[2024-12-21] MEDS: Vancomycin HCl 2,000 MG in 0.9% Normal Saline (500mL Bag) 500 ML 250 MG IV ×2 (08:06→20:25)
[2024-12-21] MEDS: Carvedilol 25 MG Tablet PO ×2 (08:07→17:25)
[2024-12-21 08:35] LABS: ALB/GLOB Ratio 1.1 RATIO (0.9-2.4); AST(SGOT) 17 U/L (<=31); Alanine Aminotransfer ALT/SGPT 17 U/L (<=34); Albumin, Serum 3.2 g/dL (3.5-5.0); Alkaline Phosphatase 141 U/L (35-104); Anion Gap 9 (5-15); BUN 14 mg/dL (4-19); BUN/Creat Ratio 16.9 RATIO (10-20); Calcium,Total 8.4 mg/dL (7.6-11.0); Chloride 104 mmol/L (98-108); Creatinine, Serum 0.83 mg/dL (0.70-1.20); EST Glomerular Filtration Rate 81 (>60); Estimated Creatinine Clearance 100.58 ml/min (50-250); Globulin 2.9 g/dL (2.2-4.2); Glucose 253 mg/dL (70-99); Potassium 3.9 mmol/L (3.3-5.1); Protein, Total 6.1 g/dL (5.9-8.4); Sodium Level 135 mmol/L (133-145); Total Bilirubin 0.45 mg/dL (0.00-1.30)
--- NOTE | 2024-12-21 08:45 | CASEMGMT ---
AFRICA HASSAN received call from [facility] agency, shared concerns with AFRICA HASSAN in regards to pt not able to do IV antibiotics in home setting. States Pt has called them several times needing assistance and has not had IV antibiotics connected correctly.They do not feel Pt is able to go back home with IV antibiotics. IV antibiotics is ordered through 01/02/25. AFRICA HASSAN shared concern with hospitalist.
[2024-12-21] MEDS: Loratadine 10 MG Tablet PO (10:05)
[2024-12-21] MEDS: DULoxetine Hcl 60 MG Capsule PO ×2 (10:05→21:35)
[2024-12-21] MEDS: Insulin Glargine-YFGN 100 UNIT/ML Pen 40 UNIT SC ×2 (10:06→21:36)
[2024-12-21] MEDS: Enoxaparin 40 MG/0.4 ML Syringe SC (10:07)
[2024-12-21] MEDS: Gabapentin 300 MG Capsule PO (10:15)
[2024-12-21] MEDS: Senna/Docusate Sodium 1 Tablet 2 TABLET PO (10:18)
--- NOTE | 2024-12-21 11:41 | CASEMGMT ---
Discharge Planning A list of SNF providers including quality and resource use data and consistent with the patient's preferred geographic region, medical needs, and insurance network was created in [facility] Guide.? This list was provided to the SW. Sandi Marin Discharge Planning Asst.
--- NOTE | 2024-12-21 11:44 | CASEMGMT ---
AFRICA HASSAN Readmission Note: See AFRICA HASSAN Assessment from 11/21/24. Pt was admitted through the ED on 11/20/2024 with a complaint of back pain and fever. On admission temperature was 103.2 Fahrenheit and she was initially on 90% on room air. WBC was 9.6 and lactic acid was 2.4. Urinalysis showed no evidence of UTI. She was admitted and managed for sepsis with unclear etiology at that time. She was started on broad-spectrum antibiotics. Blood cultures grew gram-positive cocci in clusters and PCR was positive for MRSA. She was therefore started on IV vancomycin and also continued on IV cefepime. Infectious disease was consulted and recommended continuation of IV vancomycin for 6 weeks with a stop date of 01/02/2025 and to have weekly labs done. She is follow-up with her primary care doctor and with infectious disease within 1 to 2 weeks. Pt DC'd with [facility] for IV antibiotics. AFRICA HASSAN presented to [facility] ED 12/20/24 with initially feeling improved since her discharge from the hospital 11/26/2024 unfortunately with onset of recurrent fevers, nausea and emesis as well as lumbar back pain. AFRICA HASSAN into pt room, Pt states she was having a difficult time with administering IV antibiotics at home. Pt states she was attempting to do it, but does not feel she was doing it correctly. States she did go to follow up appointment with PCP, Has an ID follow up scheduled for 12/30/24. Discussed going to SNF for continuation of IV antibiotics that are due to finish 01/02/25. Pt was agreeable. Notified SW and Hospitalist.
--- NOTE | 2024-12-21 12:01 | CASEMGMT ---
SW was informed patient was agreeable to going to a custodial facility to help her finish her IV antibiotics. SW met with patient. Introduced self and role at [facility]. Patient confirmed she was agreeable to SNF. SW provided patient with a list and asked that she review the list and pick 3-4 preferences. SW will then take care of making referrals. SW told patient SW will stop back by in a little bit. Patient verbalized understanding. Carrol DAVIS
[2024-12-21] MEDS: Pantoprazole Sodium 40 MG in 0.9% Normal Saline (100mL MB+) 100 ML 330 MG IV ×2 (12:11→23:36)
[2024-12-21] MEDS: Spironolactone 25 MG Tablet PO (12:12)
[2024-12-21] MEDS: SACUBITRIL/VALSARTAN 24/26 MG TABLET 1 EACH PO ×2 (12:12→21:35)
[2024-12-21] MEDS: Acetaminophen 325 MG Tablet 650 MG PO ×2 (12:15→21:35)
--- NOTE | 2024-12-21 15:19 | CON.PCM.ID_ITS ---
Assessment & Plan Assessment/Plan (1) MRSA bacteremia: PLAN: Now with recurrent MRSA bacteremia and picc malfunction. Had been admitted 11/2024 with sepsis due to MRSA bacteremia, suspected source recent fall with scrape to L elbow. KANDY reportedly showed no veg. Repeat bcx ngtd. Having point tenderness over L spine. Noncontrast lumbar CT showed only severe degenerative disease, and she reports her pacer-ICD is not MRI compatible. Discharged with picc and 6 weeks iv vanc stop date 01/02/25. Concern for line infection vs pacer-related endocarditis vs worsening lumbar infection. Picc is now out. Will repeat bcx and check KANDY. Cont vanc. Will follow, thank you HPI Consult Data Date of Consult: 12/21/24 HPI Narrative Reason for Consultation: bacteremia HPI Narrative: DOLORES SALMERON, is a 59 F with pacer-ICD in place. Admitted 11/2024 with sepsis due to MRSA bacteremia, suspected source recent fall with scrape to L elbow. KANDY reportedly showed no veg. Repeat bcx cleared. Having point tenderness over L spine. Noncontrast lumbar CT showed only severe degenerative disease, and she reports her pacer-ICD is not MRI compatible. Discharged with picc and 6 weeks iv vanc stop date 01/02/25. Had issues with picc at home, most recently slow infusion rate. Missed a few doses of vanc, developed fever, nausea, not feeling well. Came back to ED, picc removed, admitted on vanc. No new joint pain, still some back pain, no issues with pacer site. No redness/pain at former picc site. Full ros performed and neg except as noted above. [facility] Medical History MRSA bacteremia Nonischemic cardiomyopathy Diabetes mellitus Bacteremia Low back pain MRSA (methicillin resistant staph aureus) culture positive Cardiomyopathy, ischemic Vitamin D deficiency Neuropathy History of placement of internal cardiac defibrillator (09/03/13) GERD (gastroesophageal reflux disease) Anxiety Obesity Type 2 diabetes mellitus with diabetic neuropathy, unspecified Chest pain Heart disease Headache Arthritis Seasonal allergies Nonischemic dilated cardiomyopathy Gout Pulmonary HTN Hyperlipidemia RLS (restless legs syndrome) HTN (hypertension) Home Medications ?Medication ?Instructions ?Recorded ?Last Taken ?Type docusate sodium 100 mg capsule 100 mg PO BID PRN const ipation 05/06/24 12/20/24 History (Colace) CareFine Pen Needle 30 gauge x #120 ea 05/29/24 Unknow n Rx /16 (pen needle, diabetic) insulin syringe-needle U-100 0.5 #90 ea 05/29/24 Unkno wn Rx mL 31 gauge x 5/16 (BD Insulin Syringe Ultra-Fine) sacubitril 24 mg-valsartan 26 mg 1 tab PO BID #60 tabs 06/03/24 12/19/24 Rx tablet (Entresto) blood sugar diagnostic (OneTouch #100 ea 10/15/24 Unkn own Rx Verio test strips) 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 meter (OneTouch #1 ea 10/15/24 Unknown R x Verio Reflect Meter) 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 sensor (FreeStyle #2 ea 10/15/24 Unknown Rx Lance 3 Plus Sensor device) 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,support director,cont #1 ea 10/15/24 Unknown Rx (FreeStyle Lance 3 Townsend) insulin lispro 100 unit/mL 30 unit subcut TID dm 10/1912/19/24 History subcutaneous pen insulin glargine 100 unit/mL (3 40 unit (0.4 mL) subcu t BID #30 mL 10/21/24 12/19/24 18:06 Rx mL) subcutaneous pen (Lantus Solostar U-100 Insulin) atorvastatin 10 mg tablet (Lipitor) 10 mg PO DAILY cho lesterol #90 tabs 10/22/24 12/20/24 Rx carvedilol 25 mg tablet 25 mg PO Q12H #180 tabs 10/1312/19/24 Rx cetirizine 10 mg capsule 10 mg PO DAILY #90 caps 10/1312/19/24 Rx cholecalciferol (vitamin D3) 1,250 1,250 mcg PO QWEEK #12 caps 10/22/24 12/19/24 Rx mcg (50,000 unit) capsule duloxetine 60 mg capsule,delayed 60 mg PO BID #180 cap s 10/22/24 12/19/24 Rx release magnesium oxide 400 mg (241.3 mg 400 mg PO BID #180 ta bs 10/22/24 12/19/24 Rx magnesium) tablet spironolactone 25 mg tablet 25 mg PO DAILY #30 tabs 12/19/24 Rx pantoprazole 40 mg tablet,delayed 40 mg PO BID #180 ta bs 11/19/24 12/19/24 Rx release (Protonix) ropinirole 0.5 mg tablet 0.5 mg PO QHS #90 tabs 11/1912/19/24 Rx vancomycin 1.75 gram intravenous 1.75 g IV Q12H 39 day s 11/25/24 12/19/24 Rx solution gabapentin 300 mg capsule 300 mg PO DAILY #30 caps 12/19/24 21:06 Rx dulaglutide 3 mg/0.5 mL 3 mg (0.5 mL) subcut QWEEK # 2 mL 12/10/24 12/16/24 Rx subcutaneous pen injector (Trulicity) Allergy/AdvReac Type Severity Reaction Status Date / Time simvastatin Allergy Severe Myalgia Verified 12/20/24 17:46 Latex, Natural Rubber Allergy Unknown Rash Verified 12/20/24 17:46 metformin Allergy Other Verified 12/20/24 17:46 adhesive tape AdvReac Severe Rash Verified 12/20/24 17:46 Family History Father Heart disease Myocardial infarction CAD (coronary artery disease) Mother CAD (coronary artery disease) Heart disease Cancer breast Grandmother Colon cancer Daughter Breast cancer Surgical History History of left heart catheterization Hx of appendectomy H/O colectomy History of hysteroscopy Social History household members: family and other details: ex mother in law , ex housing: house current occupational status: disabled 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 Smoking Status: Never smoker second hand exposure: No alcohol intake: never substance use type: does not use what type of physical activity do you participate in: none seatbelt use: always do you feel safe at home: Yes Physical Exam Const alert, oriented x3 and no apparent distress General Appearance: cooperative HEENT normocephalic and head/scalp atraumatic Eyes PERRL and EOMs intact bilaterally Neck supple and No nodes Resp normal air movement and clear to auscultation bilaterally Cardio regular rate and regular rhythm GI soft to palpation, non-tender and non-distended Extremity General Extremity: Negative for edema Skin Skin Narrative: Mild lumber tenderness. Small splinter hemorrhage R thumb Neuro CN's II-XII intact bilaterally Lab / Micro Data Attestation: I reviewed the patient's lab results. 12/21/24 07:13 12/21/24 07:13 Labs: Laboratory Results - last 24 hr 12/20/24 18:40: WBC 10.1, RBC 4.76, Hgb 14.2, Hct 42.0, MCV 88.2, MCH 29.8, MCHC 33.8, RDW Std Deviation 46.1 H, RDW Coeff of [place] 14.5, Plt Count 147 L, MPV 9.6, Immature Gran % (Auto) 0.500, Neut % (Auto) 85.9 H, Lymph % (Auto) 7.4 L, [place] % (Auto) 5.4, Eos % (Auto) 0.3, Baso % (Auto) 0.5, Absolute Neuts (auto) 8.7 H, A bsolute Lymphs (auto) 0.75 L, Nucleated RBC % 0, PT 13.9, INR 1.1, APTT 23.8 L, Sodium 133, Potassium 4.5, Chloride 96 L, Carbon Dioxide 24.3, Anion Gap 12, BUN 12, Creatinine 0.99, Estim Creat Clear Calc 84.17, Est GFR (MDRD) Non-Af 66, BUN/Creatinine Ratio 11.9, Glucose 347 H, Lactic Acid 2.3 H*, Calcium 9.8, Total Bilirubin 0.60, AST 22, ALT 21, Alkaline Phosphatase 207 H, C-React Prot Ext Range 25.40 H, Total Protein 8.3, Albumin 4.3, Globulin 4.0, Albumin/Globulin Ratio 1.1, Random Vancomycin < 4.0 12/20/24 19:47: Urine Color Yellow, Urine Clarity Sl. Cloudy, Urine pH 6.5, Ur Specific [place] 1.015, Urine Protein 15 H, Urine Glucose (UA) 1000 H, Urine Ketones Negative, Urine Occult Blood 10 H, Urine Nitrite Negative, Urine Bilirubin Negative, Urine Urobilinogen Normal, Ur Leukocyte Esterase Negative, Urine RBC 0-5 SEEN, Urine WBC 0-5 SEEN, Ur Squamous Epith Cells 0-5 SEEN, Urine Bacteria 0 SEEN, Urine Mucus 0 SEEN 12/20/24 21:15: ESR 7 12/20/24 22:04: POC Glucose 315 H 12/20/24 23:10: Lactic Acid 1.8 12/21/24 05:42: POC Glucose 248 H 12/21/24 07:13: WBC 10.3, RBC 3.76 L, Hgb 11.1 L, Hct 33.3 L, MCV 88.6, MCH 29.5, MCHC 33.3, RDW Std Deviation 47.0 H, RDW Coeff of [place] 14.6, Plt Count 115 L, MPV 10.0, Immature Gran % (Auto) 0.400, Neut % (Auto) 78.8 H, Lymph % (Auto) 12.6 L, [place] % (Auto) 7.6, Eos % (Auto) 0.1, Baso % (Auto) 0.5, Absolute Neuts (auto) 8.1 H, Absolute Lymphs (auto) 1.29, Nucleated RBC % 0, Sodium 135, Potassium 3.9, Chloride 104, Carbon Dioxide 22.0, Anion Gap 9, BUN 14, Creatinine 0.83, Estim Creat Clear Calc 100.58, Est GFR (MDRD) Non-Af 81, BUN/Creatinine Ratio 16.9, Glucose 253 H, Calcium 8.4, Total Bilirubin 0.45, AST 17, ALT 17, Alkaline Phosphatase 141 H, Total Protein 6.1, Albumin 3.2 L, Globulin 2.9, Albumin/Globulin Ratio 1.1 Micro: Microbiology 12/20/24 18:40 Blood Culture (Wb) - Anticubital Right Bacteria Detection (PCR) - Final Meth. resistant Staph. aureus 12/20/24 18:40 Blood Culture (Wb) - Anticubital Right Blood Culture - Preliminary 12/20/24 19:35 Blood Culture (Wb) - Left Hand Blood Culture - Preliminary Rhythm Strip Rhythm Strip: Sinus Tach Rate: 125 Ectopy: None Imaging Radiology Impression Chest X-Ray 12/20/24 19:05 IMPRESSION: No Acute Findings. Reading Location: [facility] Abdomen/Pelvis CT 12/20/24 20:33 IMPRESSION: No acute abdominopelvic finding. Reading Location: [facility] Lumbar Spine CT 12/20/24 20:33 IMPRESSION: NO ACUTE LUMBAR FRACTURE. DEGENERATIVE CHANGES. Reading Location: [facility]
[2024-12-21] MEDS: 0.9% Saline Lock 10 ML Syringe IV ×3 (15:45→23:36)
--- NOTE | 2024-12-21 16:05 | CHAPLAIN ---
Type of Pastoral Visit _x__ Initial Visit ___ Follow-up Visit ___ On-call Visit ___ General Patient Visit ___ Spiritual Assessment ___ Family Conference ___ Bereavement ___ Rapid Response ___ Code Blue ___ Other (describe below) Pastoral Care Referral From _x__ Patient ___ Family ___ Nurse ___ Physician ___ Manager Chinese ___ Soc Analyst ___ Other (describe below) Sacrament/Intervention _x__ Active listening ___ Anointing ___ Synagogue ___ Bereavement ___ Communion ___ Sasha exploration ___ ___ Life review _x__ Prayer ___ Reconciliation ___ Sacrament of Sick _x_ Supportive presence ___ Wedding ___ Other (describe below) Pastoral Comments patient is alert and welcoming of spiritual care; pt reviews her situation in health; pt acknowledges that she will be going to an ECF for more antibiotics care; pt admits that this is not to accept but that she knows I have to do it; pt and this paint spray inspector discuss how this experience may be more positive than she understands at this time; pt welcomes prayer for support
--- NOTE | 2024-12-21 19:31 | PCM.PN.HOSP ---
Reason for Visit Reason for Visit: Diagnoses Methicillin resistant Staphylococcus aureus infection as the cause of diseases classified elsewhere (12/20/24) Bacteremia (12/20/24) Subjective Subjective Patient was seen and examined today, there was some discussion that the patient was wanting to go to an extended care facility due to her being uncomfortable administering her own antibiotics at home, patient denied this to this examiner but subsequently told case management that she wanted to go to an extended care facility. I talked with infectious diseases about her care today, they recommended not replacing her PICC line presently. Objective Data Objective Data Vital Signs: Vital Signs Temp Pulse Resp BP Pulse Ox O2 Del Method O2 Flow Rate 97.7 F L 66 16 106/59 L 92 Room Air 2 12/21/24 18:01 12/21/24 18:01 12/21/24 18:01 12/21/24 18:01 12/21/24 18:01 12/21/24 18:01 12/21/24 10:16 Oxygen Flow Rate (L/min) 2 Oxygen Delivery Method Room Air Weight: 116.3 kg Body Mass Index (BMI) 37.8 Intake & Output: Intake and Output for Last 24 Hours 12/19/24 12/20/24 12/21/24 23:59 23:59 23:59 Intake Total 2635 / 2855 2580 / 2580 Output Total 0 / 0 Balance 2635 / 2855 2580 / 2580 Lab / Micro Data 12/21/24 07:13 12/21/24 07:13 Labs: Laboratory Results - last 24 hr 12/20/24 18:40: Lactic Acid 2.3 H*, C-React Prot Ext Range 25.40 H 12/20/24 19:47: Urine Color Yellow, Urine Clarity Sl. Cloudy, Urine pH 6.5, Ur Specific [place] 1.015, Urine Protein 15 H, Urine Glucose (UA) 1000 H, Urine Ketones Negative, Urine Occult Blood 10 H, Urine Nitrite Negative, Urine Bilirubin Negative, Urine Urobilinogen Normal, Ur Leukocyte Esterase Negative, Urine RBC 0-5 SEEN, Urine WBC 0-5 SEEN, Ur Squamous Epith Cells 0-5 SEEN, Urine Bacteria 0 SEEN, Urine Mucus 0 SEEN 12/20/24 21:15: ESR 7 12/20/24 22:04: POC Glucose 315 H 12/20/24 23:10: Lactic Acid 1.8 12/21/24 05:42: POC Glucose 248 H 12/21/24 07:13: WBC 10.3, RBC 3.76 L, Hgb 11.1 L, Hct 33.3 L, MCV 88.6, MCH 29.5, MCHC 33.3, RDW Std Deviation 47.0 H, RDW Coeff of [place] 14.6, Plt Count 115 L, MPV 10.0, Immature Gran % (Auto) 0.400, Neut % (Auto) 78.8 H, Lymph % (Auto) 12.6 L, [place] % (Auto) 7.6, Eos % (Auto) 0.1, Baso % (Auto) 0.5, Absolute Neuts (auto) 8.1 H, Absolute Lymphs (auto) 1.29, Nucleated RBC % 0, Sodium 135, Potassium 3.9, Chloride 104, Carbon Dioxide 22.0, Anion Gap 9, BUN 14, Creatinine 0.83, Estim Creat Clear Calc 100.58, Est GFR (MDRD) Non-Af 81, BUN/Creatinine Ratio 16.9, Glucose 253 H, Calcium 8.4, Total Bilirubin 0.45, AST 17, ALT 17, Alkaline Phosphatase 141 H, Total Protein 6.1, Albumin 3.2 L, Globulin 2.9, Albumin/Globulin Ratio 1.1 Micro: Microbiology 12/20/24 18:40 Blood Culture (Wb) - Anticubital Right Bacteria Detection (PCR) - Final Meth. resistant Staph. aureus 12/20/24 18:40 Blood Culture (Wb) - Anticubital Right Blood Culture - Preliminary 12/20/24 19:35 Blood Culture (Wb) - Left Hand Blood Culture - Preliminary Radiography Diagnostic Testing: Radiology Impression Abdomen/Pelvis CT 12/20/24 20:33 IMPRESSION: No acute abdominopelvic finding. Reading Location: [facility] Lumbar Spine CT 12/20/24 20:33 IMPRESSION: NO ACUTE LUMBAR FRACTURE. DEGENERATIVE CHANGES. Reading Location: [facility] Rhythm Strip Rhythm Strip: Sinus Tach Rate: 125 Ectopy: None Physical Exam Const alert, oriented x3 and no apparent distress Constitutional Narrative: Patient appears older than her stated age General Appearance: cooperative, well kempt and well developed Orientation / Consciousness: awake, oriented to person, oriented to place and oriented to time HEENT normocephalic, head/scalp atraumatic and moist oral mucous membranes Eyes PERRL, EOMs intact bilaterally and conjunctivae normal Neck supple, no JVD, thyroid normal and no carotid bruits General: trachea midline Resp normal respiratory effort, no retractions, no use of accessory muscles and clear to auscultation bilaterally Auscultation: Negative for rales, rhonchi or wheezes Cardio regular rate, regular rhythm, S1 normal heart sound, S2 normal heart sound, no murmurs, no rub and no gallops GI normal to inspection, nondistended, normoactive bowel sounds, soft to palpation, non-tender and non-distended Extremity no clubbing, cyanosis or edema Skin no rashes or lesions noted General Skin Exam: no breakdown Neuro oriented x3, CN's II-XII intact bilaterally, no focal motor deficits and no sensory deficits noted Sensorium / Orientation: awake and alert Speech: speech normal Psych Psych Narrative: Patient appears to have slowed thought processes and respond slowly to some questions. Assessment & Plan Assessment/Plan (1) Hx of bacteremia: PLAN: Plan 1. Continued bacteremia secondary to MRSA-infectious diseases is now participating in her care and adjusting her antibiotics. Patient's PICC line was removed today due to the fact that it is non functional #2 failure of outpatient antibiotic treatment-exact etiology unclear possibly secondary to patient's inability to administer self antibiotics. 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
[2024-12-21] MEDS: Atorvastatin Calcium 10 MG Tablet PO (21:35)
[2024-12-21] MEDS: Pramipexole Di-HCl 0.25 MG Tablet PO (21:36)
[2024-12-22] VITALS (8 sets, daily range): BP systolic 109–127; BP diastolic 49–83; PULSE 71–81; RESP 16–18; TEMP 36.5–36.8; O2SAT 93–98; BMI 38.7
[2024-12-22] MEDS: Insulin Lispro 100 UNIT/ML INSULN.PEN SC ×5 (00:36→23:55)
[2024-12-22] MEDS: 0.9% Saline Lock 10 ML Syringe IV (05:12)
[2024-12-22] MEDS: Ketorolac 15 MG/ML Vial IV (05:12)
--- NOTE | 2024-12-22 05:55 | EKG12_ITS ---
Test Reason : AM EKG Blood Pressure : */* mmHG Vent. Rate : 75 BPM Atrial Rate : 74 BPM P-R Int : * ms QRS Dur : 160 ms QT Int : 468 ms P-R-T Axes : 70 -27 69 degrees QTcB Int : 522 ms Ventricular-paced rhythm Biventricular pacemaker detected Abnormal ECG When compared with ECG of 20-Dec-2024 18:14, MANUAL COMPARISON REQUIRED DATA IS UNCONFIRMED Confirmed by Dominick Hinkle ([id number]), editor news RYLEE [place] ([id number]) on 12/22/2024 11:07:17 AM Referred By: Hannah Nevarez Confirmed By: Dominick Hinkle
[2024-12-22 07:48] LABS: Absolute Lymphocyte Count 1.36 X10^3/uL (0.83-4.51); Absolute Neutrophil Count 4.7 X10^3/uL (2.0-7.7); Basophil# 0.05 X10^3/uL; Basophil% 0.7 % (0-1); Eosinophil# 0.26 X10^3/uL; Eosinophils% 3.7 % (0-5); Hematocrit 32.5 % (37-47); Hemoglobin 10.5 g/dL (12.0-15.0); Lymphocyte # 1.36 X10^3/ul (0.83-4.51); Lymphocyte % 19.1 % (19-41); Mean Corp Hgb Conc 32.3 g/dL (32-36); Mean Corpuscular Hgb 28.9 pg (27.0-32.0); Mean Corpuscular Volume 89.5 fL (81-99); Monocyte# 0.75 X10^3/uL; Monocyte% 10.5 % (0-10); NRBC Flagged by Analyzer 0 % (0-5); Neutrophil # 4.66 X10^3/uL (2.7-7.7); Neutrophil % 65.6 % (47-70); Platelet Count 113 K/mm3 (150-450); RBC Distribution Width CV 14.6 % (11.6-14.6); RBC Distribution Width SD 47.6 fl (35.1-43.9); Red Blood Count 3.63 M/mm3 (4.2-5.4); White Blood Count 7.1 K/mm3 (4.4-11.0)
[2024-12-22 08:25] LABS: Vancomycin, Trough Level 18.8 ug/mL (5.0-15.0)
[2024-12-22 08:27] LABS: Anion Gap 7 (5-15); BUN 11 mg/dL (4-19); Calcium,Total 8.8 mg/dL (7.6-11.0); Carbon Dioxide 24.2 mmol/L (21.0-32.0); Chloride 108 mmol/L (98-108); Creatinine, Serum 0.83 mg/dL (0.70-1.20); EST Glomerular Filtration Rate 82 (>60); Estimated Creatinine Clearance 101.75 ml/min (50-250); Glucose 136 mg/dL (70-99); Potassium 4.4 mmol/L (3.3-5.1); Sodium Level 140 mmol/L (133-145)
[2024-12-22 08:31] LABS: Hemoglobin A1c 11.5 % (<=5.6)
--- NOTE | 2024-12-22 08:32 | PCM.RX.CS ---
Consult Antibiotic Management Pharmacy has been consulted to manage selected antibiotic: Vancomycin Type of Intervention Type of Consult: Follow-up Labs Labs: Sodium 140 mmol/L (133-145) 12/22/24 07:19 Potassium 4.4 mmol/L (3.3-5.1) 12/22/24 07:19 Chloride 108 mmol/L (98-108) 12/22/24 07:19 Carbon Dioxide 24.2 mmol/L (21.0-32.0) 12/22/24 07:19 Anion Gap 7 (5-15) 12/22/24 07:19 BUN 11 mg/dL (4-19) 12/22/24 07:19 Creatinine 0.83 mg/dL (0.70-1.20) 12/22/24 07:19 Est GFR (MDRD) Non-Af 82 (>60) 12/22/24 07:19 BUN/Creatinine Ratio 13.0 RATIO (10-20) 12/22/24 07:19 Glucose 136 mg/dL (70-99) H 12/22/24 07:19 Vancomycin Trough 18.8 ug/mL (5.0-15.0) H 12/22/24 07:19 Random Vancomycin < 4.0 ug/mL (0.0-15.0) 12/20/24 18:40 Microbiology Microbiology: Microbiology 12/20/24 19:35 Blood Culture (Wb) - Left Hand Blood Culture - Preliminary Staphylococcus aureus 12/20/24 18:40 Blood Culture (Wb) - Anticubital Right Bacteria Detection (PCR) - Final Meth. resistant Staph. aureus 12/20/24 18:40 Blood Culture (Wb) - Anticubital Right Blood Culture - Preliminary Staphylococcus aureus Goal Trough Goal Trough: 15-20 mcg/mL Pharmacy Plan for Drug Dosing Pharmacy Plan for Drug Dosing: VANCOMYCIN LEVEL RECEIVED Current Vancomycin Dose: 2000mg IV Q12hr Number of Doses Received: 3 (ED dose + 2 scheduled) Vancomycin Level: 18.8 Hours Since Last Dose: 11hr Renal Function: 0.83 Renal Function Trend: stable Lab/Micro: BCx (+) MRSA Vancomycin Plan/Comments: Patient had a trough drawn which resulted in a value of 18.8 (goal 15-20). Patient's trough is within goal range, will continue current dosing and recheck a trough in 2 days per protocol Pending Level: 12/24/24 @0730 Pharmacy Service will continue to monitor and adjust dosing as required.
--- NOTE | 2024-12-22 09:10 | CASEMGMT ---
Received call from hospitalist, pt needing to be transferred. AFRICA HASSAN to look up tertiary facilities based on pt insurance. AFRICA HASSAN asked DP chef assistant to add note about tertiary facilities.
--- NOTE | 2024-12-22 09:22 | CASEMGMT ---
Tertiary Insurance review for hospitals In-network with [facility] insurance if transfer is recommended is as follows: [facility] and [facility]. Sandi Marin, Discharge Planning Asst.
[2024-12-22] MEDS: 0.9% Normal Saline (250mL Bag) 250 ML 15 ML IV (10:06)
[2024-12-22] MEDS: DULoxetine Hcl 60 MG Capsule PO ×2 (10:10→23:51)
[2024-12-22] MEDS: Loratadine 10 MG Tablet PO (10:10)
[2024-12-22] MEDS: Spironolactone 25 MG Tablet PO (10:10)
[2024-12-22] MEDS: SACUBITRIL/VALSARTAN 24/26 MG TABLET 1 EACH PO ×2 (10:11→23:52)
[2024-12-22] MEDS: Carvedilol 25 MG Tablet PO ×2 (10:11→16:57)
[2024-12-22] MEDS: Insulin Glargine-YFGN 100 UNIT/ML Pen 40 UNIT SC ×2 (10:11→23:52)
[2024-12-22] MEDS: Enoxaparin 40 MG/0.4 ML Syringe SC (10:11)
[2024-12-22] MEDS: Vancomycin Trough/Random Due 1 LAB MC (10:12)
[2024-12-22] MEDS: Vancomycin HCl 2,000 MG in 0.9% Normal Saline (500mL Bag) 500 ML 250 MG IV ×2 (10:12→20:17)
--- NOTE | 2024-12-22 10:18 | PCM.PN.ID ---
Physical Exam Narrative Feeling about the same, no fever, no n/v/d. No new joint pain. 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 Had been admitted 11/2024 with sepsis due to MRSA bacteremia, suspected source recent fall with scrape to L elbow. KANDY reportedly showed no veg. Repeat bcx ngtd. Having point tenderness over L spine. Noncontrast lumbar CT showed only severe degenerative disease, and she reports her pacer-ICD is not MRI compatible. Discharged with picc and 6 weeks iv vanc stop date 01/02/25. Concern for line infection vs pacer-related endocarditis vs worsening lumbar infection. Picc is now out. Will repeat bcx and ordered KANDY. Cont vanc. May need transfer for device removal. D/w primary team. Will follow
[2024-12-22] MEDS: Gabapentin 300 MG Capsule PO (10:21)
[2024-12-22] MEDS: Pantoprazole Sodium 40 MG in 0.9% Normal Saline (100mL MB+) 100 ML 330 MG IV ×2 (15:11→23:55)
[2024-12-22] MEDS: Senna/Docusate Sodium 1 Tablet 2 TABLET PO (18:01)
--- NOTE | 2024-12-22 19:39 | PCM.PN.HOSP ---
Reason for Visit Reason for Visit: Diagnoses Methicillin resistant Staphylococcus aureus infection as the cause of diseases classified elsewhere (12/20/24) Bacteremia (12/20/24) Personal history of other specified conditions (12/20/24) Subjective Subjective Patient was seen and examined today, I received word from cardiology who stated they did not want her to have a KANDY and they requested that I transfer the patient to another facility for removal of her pacemaker lead. I asked the patient what institution she would like to go to and she confirmed it was [facility] which takes her insurance, I called [facility] and a bed was not available today and they will keep her on a waiting list. Objective Data Objective Data Vital Signs: Vital Signs Temp Pulse Resp BP Pulse Ox O2 Del Method O2 Flow Rate 97.9 F 81 16 114/59 L 98 Room Air 2 12/22/24 16:54 12/22/24 16:54 12/22/24 16:54 12/22/24 16:54 12/22/24 16:54 12/22/24 18:00 12/22/24 04:00 Oxygen Flow Rate (L/min) 2 Oxygen Delivery Method Room Air Weight: 118.8 kg Body Mass Index (BMI) 38.7 Intake & Output: Intake and Output for Last 24 Hours 12/20/24 12/21/24 12/22/24 23:59 23:59 23:59 Intake Total 2635 / 2855 3120 / 3120 980 / 980 Output Total 0 / 0 Balance 2635 / 2855 3120 / 3120 980 / 980 Lab / Micro Data 12/22/24 07:19 12/22/24 07:19 Labs: Laboratory Results - last 24 hr 12/22/24 07:19: WBC 7.1, RBC 3.63 L, Hgb 10.5 L, Hct 32.5 L, MCV 89.5, MCH 28.9, MCHC 32.3, RDW Std Deviation 47.6 H, RDW Coeff of Tatum 14.6, Plt Count 113 L, MPV 10.0, Immature Gran % (Auto) 0.400, Neut % (Auto) 65.6, Lymph % (Auto) 19.1, Bullitt % (Auto) 10.5 H, Eos % (Auto) 3.7, Baso % (Auto) 0.7, Absolute Neuts (auto) 4.7, Absolute Lymphs (auto) 1.36, Nucleated RBC % 0, Sodium 140, Potassium 4.4, Chloride 108, Carbon Dioxide 24.2, Anion Gap 7, BUN 11, Creatinine 0.83, Estim Creat Clear Calc 101.75, Est GFR (MDRD) Non-Af 82, BUN/Creatinine Ratio 13.0, Glucose 136 H, Hemoglobin A1c 11.5 H, Calcium 8.8, Vancomycin Trough 18.8 H Micro: Microbiology 12/21/24 12:45 Incision/Surgical Site Gram Stain - Final 12/20/24 19:35 Blood Culture (Wb) - Left Hand Blood Culture - Preliminary Staphylococcus aureus 12/20/24 18:40 Blood Culture (Wb) - Anticubital Right Bacteria Detection (PCR) - Final Meth. resistant Staph. aureus 12/20/24 18:40 Blood Culture (Wb) - Anticubital Right Blood Culture - Preliminary Staphylococcus aureus Rhythm Strip Rhythm Strip: Sinus Tach Rate: 125 Ectopy: None Physical Exam Narrative alert, oriented x3 and no apparent distress Constitutional Narrative: Patient appears older than her stated age General Appearance: cooperative, well kempt and well developed Orientation / Consciousness: awake, oriented to person, oriented to place and oriented to time HEENT normocephalic, head/scalp atraumatic and moist oral mucous membranes Eyes PERRL, EOMs intact bilaterally and conjunctivae normal Neck supple, no JVD, thyroid normal and no carotid bruits General: trachea midline Resp normal respiratory effort, no retractions, no use of accessory muscles and clear to auscultation bilaterally Auscultation: Negative for rales, rhonchi or wheezes Cardio regular rate, regular rhythm, S1 normal heart sound, S2 normal heart sound, no murmurs, no rub and no gallops GI normal to inspection, nondistended, normoactive bowel sounds, soft to palpation, non-tender and non-distended Extremity no clubbing, cyanosis or edema Skin no rashes or lesions noted General Skin Exam: no breakdown Neuro oriented x3, CN's II-XII intact bilaterally, no focal motor deficits and no sensory deficits noted Sensorium / Orientation: awake and alert Speech: speech normal Psych Psych Narrative: Patient appears to have slowed thought processes and respond slowly to some questions. Assessment & Plan Assessment/Plan (1) Hx of bacteremia: PLAN: Plan 1. Continued bacteremia secondary to MRSA-infectious diseases is now participating in her care and adjusting her antibiotics. Patient's PICC line was removed due to the fact that it was nonfunctional. Patient is on a waiting list to go to [facility] for pacemaker lead removal, she will need further care for her bacteremia there. #2 failure of outpatient antibiotic treatment-exact etiology unclear possibly secondary to patient's inability to administer self antibiotics. 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
[2024-12-22] MEDS: Pramipexole Di-HCl 0.25 MG Tablet PO (23:52)
[2024-12-22] MEDS: Atorvastatin Calcium 10 MG Tablet PO (23:52)
[2024-12-23] MEDS: Ondansetron 4 MG/2 ML Vial IV (00:04)
[2024-12-23] MEDS: 0.9% Saline Lock 10 ML Syringe IV (00:04)
[2024-12-23 02:58] VITALS: BP 109/76; PULSE 71; RESP 17; TEMP 36.7; O2SAT 96
[2024-12-23 03:00] VITALS: PULSE 66
[2024-12-23 03:40] VITALS: BMI 39.2
[2024-12-23 05:00] LABS: Bedside Glucose 181 mg/dL (74-106)
[2024-12-23 07:17] LABS: Bedside Glucose 105 mg/dL (74-106)
[2024-12-23 09:00] VITALS: BP 119/66; PULSE 77; RESP 17; TEMP 36.3; O2SAT 94
[2024-12-23] MEDS: Enoxaparin 40 MG/0.4 ML Syringe SC (10:21)
[2024-12-23] MEDS: Gabapentin 300 MG Capsule PO (10:21)
[2024-12-23] MEDS: SACUBITRIL/VALSARTAN 24/26 MG TABLET 1 EACH PO (10:21)
[2024-12-23] MEDS: DULoxetine Hcl 60 MG Capsule PO (10:21)
[2024-12-23] MEDS: Carvedilol 25 MG Tablet PO ×2 (10:21→17:33)
[2024-12-23] MEDS: Spironolactone 25 MG Tablet PO (10:22)
[2024-12-23] MEDS: Vancomycin HCl 2,000 MG in 0.9% Normal Saline (500mL Bag) 500 ML 250 MG IV (10:22)
[2024-12-23] MEDS: Pantoprazole Sodium 40 MG in 0.9% Normal Saline (100mL MB+) 100 ML 330 MG IV (10:22)
[2024-12-23] MEDS: Insulin Glargine-YFGN 100 UNIT/ML Pen 40 UNIT SC (10:23)
[2024-12-23] MEDS: Loratadine 10 MG Tablet PO (10:23)
[2024-12-23] MEDS: Insulin Lispro 100 UNIT/ML INSULN.PEN SC ×2 (11:50→17:32)
[2024-12-23 12:57] LABS: Bedside Glucose 181 mg/dL (74-106)
--- NOTE | 2024-12-23 13:25 | PCM.PN.ID ---
Physical Exam Narrative Feeling ok, no fever, minimal back pain. No other pain in joints. 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 Had been admitted 11/2024 with sepsis due to MRSA bacteremia, suspected source recent fall with scrape to L elbow. KANDY reportedly showed no veg. Repeat bcx ngtd. Having point tenderness over L spine. Noncontrast lumbar CT showed only severe degenerative disease, and she reports her pacer-ICD is not MRI compatible. Discharged with picc and 6 weeks iv vanc stop date 01/02/25. Concern for line infection vs pacer-related endocarditis vs worsening lumbar infection. Picc is now out. Will repeat bcx and ordered KANDY. Cont vanc. May need transfer for device removal. Vanc ABBEY is 1. Will follow
[2024-12-23 15:00] VITALS: BP 121/76; PULSE 68; RESP 17; TEMP 36.4; O2SAT 95
[2024-12-23 16:58] LABS: Bedside Glucose 220 mg/dL (74-106)
[2024-12-23 19:49] VITALS: BP 130/70; PULSE 65; RESP 16; TEMP 36.9; O2SAT 98
--- NOTE | 2024-12-28 08:18 | DS.PCM_ITS ---
Providers Date of Admission: 12/20/24 Date of Discharge: 12/23/24 Primary Care Physician: Dr. Lisseth Peñaloza MD Consultations 12/20/24 21:51 Consult: Infectious Disease Routine Consulting Provider: Michel Haq Reason for Consult: Recurrent F, N/V, recent MRSA bacteremia, PICC line malfunction EMERGENT Consult: No MD Notified: Yes Date Notified: 12/21/24 Time Notified: 07:55 Method of Notification: Text Reason For Visit: RECENT MRSA BACTEREMIA, PICC MALFX, F, N/V Diagnosis Discharge Diagnosis (1) MRSA bacteremia: Status: Acute Code(s): R78.81 - Bacteremia; B95.62 - Methicillin resistant Staphylococcus aureus infection as the cause of diseases classified elsewhere Plan 1. Continued bacteremia secondary to MRSA-infectious diseases is now participating in her care and adjusting her antibiotics. Patient's PICC line was removed due to the fact that it was nonfunctional. Patient is on a waiting list to go to [facility] for pacemaker lead removal, she will need further care for her bacteremia there. #2 failure of outpatient antibiotic treatment-exact etiology unclear possibly secondary to patient's inability to administer self antibiotics. #3 type 2 diabetes-blood sugars will be monitored, sliding scale insulin will be administered as indicated #4 neuropathy secondary to type 2 diabetes-patient is on gabapentin #5 essential hypertension-patient is on carvedilol #6 hyperlipidemia-patient is on Lipitor Total clinical time spent addressing the patient's medical issues, reviewing all of her data, and collaborating with patient's care team: 35 minutes Medications at Discharge Home Medications docusate sodium 100 mg capsule (Colace) 100 mg PO BID PRN constipation 05/06/24 CareFine Pen Needle 30 gauge x 5/16 (pen needle, diabetic) #120 ea 05/29/24 insulin syringe-needle U-100 0.5 mL 31 gauge x 5/16 (BD Insulin Syringe Ultra- Fine) #90 ea 05/29/24 sacubitril 24 mg-valsartan 26 mg tablet (Entresto) 1 tab PO BID #60 tabs 06/03/24 blood sugar diagnostic (OneTouch Verio test strips) #100 ea 10/15/24 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 meter (OneTouch Verio Reflect Meter) #1 ea 10/15/24 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 sensor (FreeStyle Lance 3 Plus Sensor device) #2 ea 10/15/24 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,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,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 (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 Lance 3 [place]) #1 ea 10/15/24 insulin lispro 100 unit/mL subcutaneous pen 30 unit subcut TID dm 10/19/24 atorvastatin 10 mg tablet (Lipitor) 10 mg PO DAILY cholesterol #90 tabs 10/22/24 carvedilol 25 mg tablet 25 mg PO Q12H #180 tabs 10/22/24 cetirizine 10 mg capsule 10 mg PO DAILY #90 caps 10/22/24 cholecalciferol (vitamin D3) 1,250 mcg (50,000 unit) capsule 1,250 mcg PO QWEEK #12 caps 10/22/24 duloxetine 60 mg capsule,delayed release 60 mg PO BID #180 caps 10/22/24 magnesium oxide 400 mg (241.3 mg magnesium) tablet 400 mg PO BID #180 tabs 10/22/24 spironolactone 25 mg tablet 25 mg PO DAILY #30 tabs 11/04/24 pantoprazole 40 mg tablet,delayed release (Protonix) 40 mg PO BID #180 tabs 11/19/24 ropinirole 0.5 mg tablet 0.5 mg PO QHS #90 tabs 11/19/24 vancomycin 1.75 gram intravenous solution 1.75 g IV Q12H 39 days 11/25/24 dulaglutide 3 mg/0.5 mL subcutaneous pen injector (Trulicity) 3 mg (0.5 mL) subcut QWEEK #2 mL 12/10/24 gabapentin 300 mg capsule 300 mg PO DAILY #30 caps 12/26/24 insulin glargine 100 unit/mL (3 mL) subcutaneous pen (Lantus Solostar U-100 Insulin) 40 unit (0.4 mL) subcut BID #30 mL 12/26/24 Hospital Course Operations None Procedures None Summary of Care Provided Minutes Spent on Discharge: 32 Hospital Course: This 59-year-old white female was seen in the emergency room at [facility] with complaints of fever. Patient was treated recently for MRSA bacteremia and has a PICC line and is receiving IV vancomycin at home. Since her recent discharge from [facility], she has been seen once in the ER for a PICC line malfunction, the PICC line was able to be flushed and she was discharged back to home. Workup in the emergency room included CBC which showed a normal white blood cell count, hemoglobin was normal at 14.2, a random vancomycin level was drawn which was 4, blood glucose was 347, C-reactive protein was drawn that was elevated at 25.4 and urinalysis appeared unremarkable. Lactic acid was elevated at 2.3, patient had low-grade temperature at 99.7 and she was tachycardic. Patient was given additional IV vancomycin in the emergency room and hospitalist service was called for admission. Patient was admitted to PCU and blood cultures were obtained which were positive for MRSA. Patient was seen in consultation by infectious diseases and they recommended a KANDY, cardiology was contacted and advised that the patient be sent to a tertiary facility for removal of her pacemaker leads. Patient wanted to go to [facility] and they were contacted, on 12/23/2024, they had a bed open and the patient was transferred by ambulance to [facility] for further care. On that date of 12/23/2024, patient was seen and examined: On examination she appeared in good health and spirits, she does not appear to be in any distress. Vital signs as documented. Skin warm and dry and without overt rashes. Neck without JVD, thyroid appears normal, trachea is midline, neck is supple. Lungs clear, normal air movement was noted. Heart exam notable for regular rhythm, normal sounds and absence of murmurs, rubs or gallops. Abdomen unremarkable and without evidence of organomegaly, masses, or abdominal aortic enlargement, bowel sounds are present in all 4 quadrants, no abdominal tenderness was noted. Extremities nonedematous, no cyanosis was noted, no clubbing was noted. Neuro: Cranial nerves II through XII are grossly intact, no focal motor deficits were noted, sensation to light touch and pinprick is intact, motor exam 5/5 throughout. Psych: Patient is alert and oriented x3, she does not appear anxious or depressed, she does not appear agitated. Patient was transferred to [facility] for further care on 12/23/2024 in stable condition Weight / BMI Weight Weight: 120.6 kg Body Mass Index (BMI) 39.2 ABG / Lab / Microbiology Data 12/22/24 07:19 12/22/24 07:19 Microbiology: Microbiology 12/22/24 11:50 Blood Culture (Wb) - Right Hand Blood Culture - Final No growth in 5 days. 06/09/25 12:45 Incision/Surgical Site Gram Stain - Final 12/21/24 12:45 Incision/Surgical Site Wound Culture - Final No growth aerobically. 12/21/24 12:45 Incision/Surgical Site Anaerobic Culture - Final No growth in 5 days. 12/23/24 13:36 Blood Culture (Wb) - Left Hand Blood Culture - Preliminary No growth in 48 hours. 12/21/24 15:30 Blood Culture (Wb) - Arm Right Bacteria Detection (PCR) - Final Meth. resistant Staph. aureus 12/21/24 15:30 Blood Culture (Wb) - Arm Right Blood Culture - Final Meth. resistant Staph. aureus 12/20/24 19:35 Blood Culture (Wb) - Left Hand Blood Culture - Final Staphylococcus aureus 12/20/24 19:47 Urine, Clean Catch Urine Culture - Final Mixed Gram Positive Organisms 12/20/24 18:40 Blood Culture (Wb) - Anticubital Right Bacteria Detection (PCR) - Final Meth. resistant Staph. aureus 12/20/24 18:40 Blood Culture (Wb) - Anticubital Right Blood Culture - Final Meth. resistant Staph. aureus D/C Instructions DC O2, CPAP, BIPAP Needs Home O2 Discharge instructions: No Meaningful Use Info Meaningful Use Meaningful Use Diagnoses (Choose all that apply): None applicable Ischemic Stroke Statin Dosing Therapy Reference: STATIN DOSE THERAPY REFERENCE: * Patients > 75 years receive moderate or high dose statin therapy. * Patients 75 years or YOUNGER should receive HIGH intensity statin dose unless contraindicated. You will be required to document reason for non-treatment if statin daily dose does not meet guidelines. HIGH DOSE STATIN THERAPY DAILY Atorvastatin > than or = to 40 mg Rosuvastatin > than or = to 20 mg Amlodipine + Atorvastatin > than or = to 2.5/40 mg Ezetimibe + Simvastatin 10/80 mg Simvastatin 80mg Discharge Plan Admission Admit Date/Time: 12/20/24 20:28 Attending Provider: Julian Ham Primary Care Provider: Lisseth Peñaloza Consulting Providers: Nicole Dobson; Michle Haq Discharge Orders/Prescriptions Prescriptions: No Action docusate sodium [Colace] 100 mg capsule 100 mg PO BID PRN (Reason: constipation) spironolactone 25 mg tablet 25 mg PO DAILY Qty: 30 11RF (DME) CareFine Pen Needle 30 gauge x 5/16 needle See Dose Instructions .ROUTE .MEDSUPPLY Qty: 120 11RF Dose Instruction: As directed Rx Instructions: use with insulin pen 4 x qd (DME) insulin syringe-needle U-100 [BD Insulin Syringe Ultra-Fine] 0.5 mL 31 gauge x 5/16 syringe See Dose Instructions .ROUTE .MEDSUPPLY Qty: 90 11RF Dose Instruction: As directed Rx Instructions: use to inject insulin tid insulin lispro 100 unit/mL insulin pen 30 unit subcut TID Rx Instructions: 10 u w/ snacks (DME) FreeStyle Lance 3 [place] Misc See Rx Instructions .Route Qty: 1 0RF Rx Instructions: As directed (DME) FreeStyle Lance 3 Plus Sensor Device See Rx Instructions .Route Qty: 2 5RF Rx Instructions: 1 sensor q 15 (DME) OneTouch Verio test strips Strip See Rx Instructions .Route Qty: 100 0RF Rx Instructions: 4x/day (DME) 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 meter [OneTouch Verio Reflect Meter] [facility] [place] See Rx Instructions .Route Qty: 1 0RF Rx Instructions: As directed Trulicity 3 mg/0.5 mL pen injector 3 mg subcut QWEEK Qty: 2 5RF vancomycin 1.75 gram recon soln 1.75 g IV Q12H 39 Days Rx Instructions: stop date 01/02/25. Dx: MRSA bacteremia. Weekly bmp, cbc, and vanc trough. Fax to [phone]. Routine picc care per protocol. Entresto 24-26 mg tablet 1 tab PO BID Qty: 60 11RF magnesium oxide 400 mg (241.3 mg magnesium) tablet 400 mg PO BID Qty: 180 1RF Patient Comments: supplement duloxetine 60 mg capsule,delayed release(DR/EC) 60 mg PO BID Qty: 180 1RF cholecalciferol (vitamin D3) 1,250 mcg (50,000 unit) capsule 1,250 mcg PO QWEEK Qty: 12 1RF carvedilol 25 mg tablet 25 mg PO Q12H Qty: 180 1RF Rx Instructions: must administer with a meal/food cetirizine 10 mg capsule 10 mg PO DAILY Qty: 90 1RF atorvastatin [Lipitor] 10 mg tablet 10 mg PO DAILY Qty: 90 0RF ropinirole 0.5 mg tablet 0.5 mg PO QHS Qty: 90 0RF Rx Instructions: administer 1-3 hours before bedtime pantoprazole [Protonix] 40 mg tablet,delayed release (DR/EC) 40 mg PO BID Qty: 180 0RF insulin glargine [Lantus Solostar U-100 Insulin] 100 unit/mL (3 mL) insulin pen 40 unit subcut BID Qty: 30 1RF gabapentin 300 mg capsule 300 mg PO DAILY Qty: 30 0RF Referrals / Follow Up: Lisseth Peñaloza MD [Primary Care Provider] - Disposition Disposition (needs filled in before D/C Order can be placed): Acute Care Hospital Charges/Coding Visit Charges Inpatient E&M: 88554 Disch Hosp >30min
--- NOTE | 2024-12-31 09:11 | CASEMGMT ---
Received message from I questioning when pt was dc'd. TC to [facility], spoke with July, made aware pt was trf'd to [facility] on 12/23/24.
== END 2024-12-23 21:05 | disposition short-term general hospital (02) | DRG 872 ==
LOC: ED 18:53 → PCU 21:33
PROVIDERS: Anesthesiology; Admitting Provider Family Medicine; Emergency Provider Emergency Medicine; PCP Internal Medicine; Referring Provider Emergency Medicine; Visit Provider Internal Medicine
DX: R78.81 Bacteremia (principal); T82.594A Other mechanical complication of infusion catheter, initial encounter; I13.0 Hypertensive heart and chronic kidney disease with heart failure and stage 1 through stage 4 chronic kidney disease, or unspecified chronic kidney disease; I50.20 Unspecified systolic (congestive) heart failure; E11.22 Type 2 diabetes mellitus with diabetic chronic kidney disease; E11.40 Type 2 diabetes mellitus with diabetic neuropathy, unspecified; E11.65 Type 2 diabetes mellitus with hyperglycemia; B95.62 Methicillin resistant Staphylococcus aureus infection as the cause of diseases classified elsewhere; F32.A Depression, unspecified; G25.81 Restless legs syndrome; E66.9 Obesity, unspecified; I25.5 Ischemic cardiomyopathy; E78.5 Hyperlipidemia, unspecified; Z79.4 Long term (current) use of insulin; N18.2 Chronic kidney disease, stage 2 (mild); F41.9 Anxiety disorder, unspecified; K21.9 Gastro-esophageal reflux disease without esophagitis; J30.9 Allergic rhinitis, unspecified; M51.369 Other intervertebral disc degeneration, lumbar region without mention of lumbar back pain or lower extremity pain; X58.XXXA Exposure to other specified factors, initial encounter; Z68.37 Body mass index [BMI] 37.0-37.9, adult; Z95.810 Presence of automatic (implantable) cardiac defibrillator; Z79.85 Long-term (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 of injectable non-insulin antidiabetic drugs; Z79.899 Other long term (current) drug therapy
CPT/HCPCS: 36415; 71045; 72131; 74177; 80048; 80053; 80202; 81001; 82962; 83036; 83605; 85025; 85610; 85652; 85730; 86140; 87040; 87070; 87075; 87077; 87086; 87088; 87149; 87186; 87205; 93005; 97161; 99285; J2997; Q9967; A4216; J2405

== ENCOUNTER 2025-01-12 12:18 | Outpatient (CLI) | payer MEDICAID, SELFPAY ==
[2025-01-12] MEDS: WATER IV (13:30)
[2025-01-12] MEDS: DEXTROSE 5% IV (13:30)
[2025-01-12] MEDS: DALBAVANCIN IV (13:30)
[2025-01-12 13:33] VITALS: BP 107/77; PULSE 65; RESP 16; TEMP 35.6; O2SAT 97; BMI 36.6
[2025-01-12 14:45] VITALS: BP 114/56; PULSE 58
== END 2025-01-12 23:59 | disposition home or self-care (01) ==
PROVIDERS: PCP Internal Medicine
DX: A49.02 Methicillin resistant Staphylococcus aureus infection, unspecified site (principal)
CPT/HCPCS: 96365; A4216; J0875

== ENCOUNTER 2025-01-19 12:41 | Outpatient (CLI) | payer MEDICAID, SELFPAY ==
[2025-01-19 12:54] VITALS: BP 116/63; PULSE 81; RESP 16; TEMP 35.6; O2SAT 95; BMI 36.6
[2025-01-19] MEDS: WATER IV (13:26)
[2025-01-19] MEDS: DEXTROSE 5% IV (13:26)
[2025-01-19] MEDS: DALBAVANCIN IV (13:26)
[2025-01-19 14:39] VITALS: BP 135/46; PULSE 65; RESP 16; TEMP 36.1; O2SAT 99
== END 2025-01-19 23:59 | disposition home or self-care (01) ==
LOC: MEDOUTP 12:42
PROVIDERS: PCP Internal Medicine
DX: A49.02 Methicillin resistant Staphylococcus aureus infection, unspecified site (principal)
CPT/HCPCS: 96365; A4216; J0875

== ENCOUNTER → 2025-02-27 | Outpatient (CLI) | payer MEDICAID, SELFPAY ==
--- NOTE | 2025-02-27 09:50 | ECHOCS_ITS ---
Reason For Study : DILATED CARDIOMYOPATHY Procedure This was a 2D Doppler, Color Flow transthoracic echocardiogram. The study was technically difficult. Contrast injection was performed. Due to suboptimal imaging windows. Left Ventricle Normal LV size. The estimated ejection fraction is 54 %. Stage 1 diastolic dysfunction. No regional wall motion abnormalities noted. Right Ventricle Normal RV size. Normal systolic function. Tricuspid Valve Normal tricuspid valve. Mild (1+) tricuspid valve insufficiency. Pulmonary artery systolic pressure is 30 mmHg. Pulmonic Valve The pulmonic valve is not well visualized. Great Vessels Normal aortic root. The pulmonary artery is normal size. Inferior vena cava collapse with respiration. Pericardium/Pleural No pericardial effusion. Medication 22 gauge I.V. with prn adaptor inserted into left arm. Diluted definity 2.0ml given slow IV push to enhance endocardial definition. MMode/2D Measurements & Calculations LVIDd: 5.9 cm IVSd: 0.84 cm Ao root diam: 2.9 cm LVIDs: 4.0 cm LVPWd: 1.0 cm RVDd: 3.6 cm FS: 33.4 % asc Aorta Diam: 3.3 cm LAV(MOD-bp): 64.3 ml LVAd ap4: 40.6 cm2 LAV(MOD-bp) Indexed: 28.2 ml/m2 LVLd ap4: 8.7 cm LAV(MOD-sp2): 49.7 ml EDV(MOD-sp4): 156.0 ml LAV(MOD-sp4): 64.7 ml EDV(sp4-el): 160.7 ml LVAs ap4: 25.2 cm2 LVLs ap4: 7.2 cm ESV(MOD-sp4): 74.6 ml ESV(sp4-el): 74.6 ml EF(MOD-sp4): 52.1 % EF(sp4-el): 53.6 % SV(MOD-sp4): 81.3 ml SV(MOD-sp2): 49.0 ml LVAd ap2: 30.9 cm2 LVLd ap2: 8.7 cm SI(MOD-sp4): 35.7 ml/m2 SI(MOD-sp2): 21.5 ml/m2 EDV(MOD-sp2): 93.7 ml EDV(sp2-el): 93.3 ml LVAs ap2: 19.5 cm2 LVLs ap2: 7.1 cm ESV(MOD-sp2): 44.7 ml ESV(sp2-el): 45.5 ml EF(MOD-sp2): 52.3 % SV(sp4-el): 86.1 ml LA A4 area: 19.0 cm2 LA dimension(2D): 4.6 cm TAPSE: 2.6 cm Time Measurements MV dec time: 0.18 sec Doppler Measurements & Calculations MV E max saeid: 74.0 cm/sec Lat Peak E' Saeid: 8.5 cm/sec Med Peak E' Saeid: 12.4 cm/sec MV A max saeid: 93.5 cm/sec E/E' lat: 8.7 E/E' med: 6.0 MV E/A: 0.79 MV V2 max: 116.5 cm/sec MV P1/2t max saeid: 108.7 cm/sec Ao V2 max: 137.0 cm/sec MV max P.4 mmHg MV P1/2t: 51.9 msec Ao max P.5 mmHg MV V2 mean: 69.7 cm/sec Ao V2 mean: 91.4 cm/sec MV mean P.2 mmHg MV dec slope: 613.9 cm/sec2 Ao mean P.7 mmHg MV V2 VTI: 28.6 cm MVA(P1/2t): 4.2 cm2 Ao V2 VTI: 26.7 cm AV (velocity ratio): 0.67 LV V1 max: 89.9 cm/sec PA V2 max: 120.7 cm/sec TR max saeid: 260.9 cm/sec LV V1 max P.2 mmHg PA V2 mean: 86.3 cm/sec TR max P.2 mmHg LV V1 mean P.9 mmHg LV V1 mean: 65.6 cm/sec LV V1 VTI: 17.9 cm ECHO/Echo Complete W/ Contrast Interpretation Summary Normal LV size. The estimated ejection fraction is 54 %. Stage 1 diastolic dysfunction. Pulmonary artery systolic pressure is 30 mmHg. Contrast injection was performed. Ordering Physician: Shawanda Keane Referring Physician: Lisseth Peñaloza Performed By: Lori Ruffin, JEANINE, RVT
--- OUTSIDE RECORDS SUMMARY | 2025-02-27 09:57 | XMS RPT_ITS | CCD ---
Author Organization [facility] Inform ion Partnership [facility] Care Team Providers Care Improvement Nurse Name Role Phone Carmelita Fernandes LPN Unavailable Unavailable VICKI, LETICIA PAC Unavailable Unavailable VICKI, LETICIA PAC Unavailable Unavailable VICKI, LETICIA PAC Unavailable Unavailable MEHRDAD MARTINEZ MD Unavailable Unavailable PROVIDER, UNKNOWN Unavailable Unavailable PROVIDER, UNKNOWN Unavailable Unavailable PROVIDER, UNKNOWN Unavailable Unavailable Ha Rivas Primary Care Provider No, Physician Primary Care Provider Unavailabl e No, Physician Primary Care Provider Unavailabl e No, Physician Primary Care Provider Unavailabl e Ha Vasquez Care Team Information Receive r Alberto SHIPPING AND RECEIVING WEIGHER, Abbey Care Team Information Receive r Alberto SHIPPING AND RECEIVING WEIGHER, Abbey Care Team Information Receive r SLY NIX DPM Care Team Information Receiv er Ha Vasquez Primary Care Physician Ha Vasquez Care Team Information Receive r Alberto SHIPPING AND RECEIVING WEIGHER, Abbey Care Team Information Receive r Alberto SHIPPING AND RECEIVING WEIGHER, Abbey Care Team Information Receive r SLY NIX DPM Care Team Information Receiv er Ha Vasquez Primary Care Physician Ha Vasquez Care Team Information Receive r Alberto SHIPPING AND RECEIVING WEIGHER, Abbey Care Team Information Receive r Alberto SHIPPING AND RECEIVING WEIGHER, Abbey Care Team Information Receive r SLY NIX DPM Care Team Information Receiv er Ha Vasquez Primary Care Physician Evelyn DURAN, Ha Care Team Information Receive r Alberto SHIPPING AND RECEIVING WEIGHER, Abbey Care Team Information Receive r Alberto SHIPPING AND RECEIVING WEIGHER, Abbey Care Team Information Receive r BOYD KEARNEYM, SLY F Care Team Information Receiv er Evelyn DURAN, Ha Primary Care Physician Evelyn DURAN, Ha Care Team Information Receive r Alberto SHIPPING AND RECEIVING WEIGHER, Abbey Care Team Information Receive r Alberto SHIPPING AND RECEIVING WEIGHER, Abbey Care Team Information Receive r BOYD KEARNEYM, SLY F Care Team Information Receiv er Evelyn DURAN, Ha Primary Care Physician Evelyn DURAN, Ha Care Team Information Receive r Alberto SHIPPING AND RECEIVING WEIGHER, Abbey Care Team Information Receive r OR - Seormc - Nubia Care Team Information Receive r Alberto SHIPPING AND RECEIVING WEIGHER, Abbey Care Team Information Receive r BOYD MARI, SLY F Care Team Information Receiv er Ha Vasquez Primary Care Physician Janice Zuniga Unavailable Mari Manuel Unavailable [phone] Ike Mar Unavailable Evelyn MEJIA MOTOR ADJUSTER-C, Ha Primary Care Provider Skyler MEJIA CNP, Cam E Unavailable OBYD MARI, SLY F Care Team Information Receiv er Evelyn MEJIA MOTOR ADJUSTER-C, Ha Primary Care Provider No, Physician Primary Care Provider Unavailabl e Unavailable Primary Care Provider UnavailMILKA Cevallos Referring Unavailable RUY Rivas Primary Care Provider RUY Rivas Attending Provider Boyd DPM, DPM Sly Hernandez Attending Provider [phone] DO Abhinav Mcclellan DO Emergency Provider Boyd DPM, DPM Sly Hernandez Attending Provider NICK BRANCH Attending Unavailabl e NO, PHYSICIAN [...] Unavailable Abhinav Mcclellan DO Attending Unavailable Boyd DPM, Sly Hernandez [...] Primary Care Unavailable JUANY HARDEN Attending Unavailable [facility], Aby Unavailable Caprice PEREZ, Homar Maritza Primary Care Prov ider Scottie PEREZ, Williams Unavailable Scottie PEREZ, Williams Unavailable Scottie PEREZ, Williams Unavailable Jeanie Murphy RN Unavailable Unavailable [facility], Aby Unavailable Caprice PEREZ, Homar Maritza Primary [facility] Prov [facility]onia Unavailable [phone] CAPRICE, HOMAR MARITZA Primary Care Unav ailable EVAN BARNETT Referring Unavailable CAPRICE, HOMAR MARITZA Referring Unav ailable CAPRICE, HOMAR MARITZA Primary Care Unav ailable [facility], Sonia Unavailable Jeanie Murphy RN Unavailable Unavailable Primary Care [...] Physician, No Primary Referring Provider Un available Jh PEREZ, Dr. Montanez Primary Care Provider Jh PEREZ, Dr. Montanez Attending Provider Jh PEREZ, Dr. Montanez Referring Provider Sonia Angulo Attending Provider Shawanda Pope Attending Provider Kale PEREZ, Dr. Daniels Attending Provider Kale PEREZ, Dr. Daniels Referring Provider Kale PEREZ, Dr. Daniels Emergency Provider Ronnie PEREZ, Dr. Pena Attending Provider Dr. Javy Saul DO Emergency Provider Osman PEREZ, Dr. Lemus Admit Provider Osman PEREZ, Dr. Lemus Attending Provider Care Physician, No Primary Referring Provider Un available Jh PEREZ, Dr. Montanez Primary Care Provider [phone] Jh PEREZ, Dr. Montanez Attending Provider Jh PEREZ, Dr. Montanez Referring Provider Sonia Angulo Attending Provider Shawanda Pope Attending Provider Kale PEREZ, Dr. Daniels Attending Provider Kale PEREZ, Dr. Daniels Referring Provider Kale PEREZ, Dr. Daniels Emergency Provider Ronnie PEREZ, Dr. Pena Attending Provider Dr. Javy Saul DO Emergency Provider Osman PEREZ, Dr. Lemus Admit Provider Osman PEREZ, Dr. Lemus Other Provider Kitty PEREZ, Dr. Angeles Other Provider Catherine PEREZ, Dr. Lazo Other Provider Escobar PEREZ, Dr. Horton Other Provider Eleuterio CHAMPAGNE, Dr. Chavarria Other Provider Marilee PEREZ, Dr. Jeanie Garcia Other Provider [phone] Dorothy PEREZ, Dr. Tolentino Other Provider [phone] Patricio PEREZ, Dr. Butterfield Other Provider Martir PEREZ, Dr. Veronica Other Provider [phone] Lukasz PEREZ, Dr. Cloud Other Provider [phone] Alon PEREZ, Dr. Roldan Other Provider [phone] Avery PEREZ, Dr. Lee Other Provider Carleen PEREZ, Dr. Bermudez Other Provider Lucille PEREZ, Dr. Matta Other Provider Unavailabl criselda Mclean MD, Dr. Jensen Other Provider [phone] John PEREZ, Dr. Vanegas Other Provider Diann PEREZ, Dr. Garland Other Provider [phone] Arianna PEREZ, Dr. Martin Other Provider Lamar CHAMPAGNE, Dr. Vidales Other Provider [phone] Terrie PEREZ, Dr. Hilton Other Provider [phone] Vicente PEREZ, Dr. Booker Other Provider [phone] Varun Collier DO Other Provider Emir PEREZ, Dr. Goldberg Other Provider Dr. Thomas Paulino MD Other Provider Ronnie PEREZ, Dr. Pena Other Provider Eun PEREZ, Dr. Pearson Other Provider Freida PEREZ, Dr. Denisse Banegas Attending Provider Dr. Haider Smith DO Other Provider Dr. Haider Smith DO Attending Provider Tim PEREZ, Dr. Garcia Attending Provider Arin PEREZ, Dr. Slaughter Attending Provider Freida PEREZ, Dr. Denisse Banegas Other Provider Dr. Haider Valdes DO Emergency Provider Eun PEREZ, Dr. Pearson Attending Provider Eun PEREZ, Dr. Pearson Referring Provider Jh PEREZ, Dr. Montanez Primary Care Provider Jh PEREZ, Dr. Montanez Attending Provider Care Physician, No Primary Referring Provider Un available Dr. Haider Valdes DO Attending Provider Jay Alvarez Attending Provider Dr. Hannah Nevarez DO Referring Provider Dr. Hannah Nevarez DO Emergency Provider Bronson PEREZ, Dr. Nicole Nuñez Attending Provider Bronson PEREZ, Dr. Nicole Nuñez Admit Provider Bronson PEREZ, Dr. Nicole Nuñez Other Provider Dr. Josie Rivera DO Attending Provider Fatoumata CHAMPAGNE, Dr. Jordan Other Provider Dr. Lisseth Peñaloza MD Primary Care Provider Jh PEREZ, Dr. Montanez Attending Provider Dr. Lisseth Peñaloza MD Referring Provider Dr. Hannah Nevarez DO Referring Provider Bronson PEREZ, Dr. Nicole Nuñez Referring Provider Isabel PEREZ, Kaitlyn Maxwell Primary Care Provider Lisseth Peñaloza MD Unavailable Jh PEREZ, Dr. Montanez Primary Care Provider Jh PEREZ, Dr. Montanez Referring Provider Dr. Lisseth Peñaloza MD Attending Provider MARIA ESTHER GUTIERREZ Attending Provider MARIA ESTHER GUTIERREZ Referring Provider [phone] MARIA ESTHER GUTIERREZ Attending Provider [phone] MARIA ESTHER GUTIERREZ Referring Provider Haider Valdes Attending Unavailable Beaver, Lisseth Primary Care Unavailable Beaver, Lisseth Primary Care Unavailable FUAD JOHNSON Attending Unavailable FUAD JOHNSON Referring Unavailable Ronnie, [place] Attending Unavailable Ronnie, Jean Referring Unavailable Care Physician, No Primary Primary Care Unava ilable Mariah Brewer Consulting Unavailable Mariah Brewer Admitting Unavailable Jasonam, Denisse Makenzie Attending Unavailable Beaver, Lisseth Primary Care Unavailable Karthik Tang Consulting Unavailable Clifton Alexander Consulting Unavailable Clifford Cody Consulting Unavailable Deon Mcclellan Consulting Unavailable Jeanie Hunt Consulting Unavailable Rajan De La Cruz Consulting Unavailable Scout Curry Consulting Unavailable Glenys Mcmahan Consulting UnavailPedro Luis Iglesias Consulting Unavailable Jamar Chi Consulting Unavailable Jesus Varela Consulting Unavailable Lara Durant Consulting Unavailable Sigrid Adkins Consulting Unavailable McleanCamila larson Consulting Unavailable John, Guilherme Consulting Unavailable Dada Tidwell Consulting Unavailable AriannaMario boswell Consulting Unavailable Dhesi, Flash Consulting Unavailable Lida Falcon Consulting Unavailable Jhony Zhang Consulting Unavailable Varun Collier Consulting Unavailable Yusuf Field Consulting Unavailable Thomas Paulino Consulting Unavailable Ronnie, [place] Consulting Unavailable Michel Haq Consulting Unavailable Haider Smith Consulting Unavailable Koram, Denisse Makenzie Consulting Unavailable Beaver, Lisseth Primary Care Unavailable Shawanda Pope Attending Unavail able Jh, Lisseth Referring Unavailable Henley, Jeremiah Referring Unavailable Jh, Lisseth Primary Care Unavailable Henley, Jeremiah Attending Unavailable Michel Haq Attending Unavailable Beaver, Lisseth Primary Care Unavailable Care Physician, No Primary Referring Unava ilable Care Physician, No Primary Primary Care Unava ilable Koki Wilson Attending Unavailable Michel Haq Attending Unavailable Beaver, Lisseth Primary Care Unavailable Haider Smith Attending Unavailable Kasandra Hinkle Attending Unavailable Beaver, Lisseth Primary Care Unavailable Shawanda Pope Attending Unavail able Care Physician, No Primary Referring Unava ilable Mariah Brewer Admitting Unavailable Jh, Lisseth Primary Care Unavailable Mariah Brewer Attending Unavailable Brewer, Mariah Consulting Unavailable Jh, Lisseth Primary Care Unavailable Godman, Hannah Referring Unavailable White, Nicole L Attending Unavailable Josie Rivera Attending Unavailable Jh, Lisseth Primary Care Unavailable Godman, Hannah Referring Unavailable White, Nicole L Consulting Unavailable White, Nicole L Admitting Unavailable Michel Haq Consulting Unavailable Joise Rivera Consulting Unavailable Josie Rivera Attending Unavailable Beaver, Lisseth Primary Care Unavailable Godman, Hannah Referring Unavailable White, Nicole L Consulting Unavailable White, Nicole L Admitting Unavailable Michel Haq Consulting Unavailable Radha Dumont Attending Unavailable Beaver, Lisseth Referring Unavailable Beaver, Lisseth Primary Care Unavailable Jay Alvarez Attending Unavailable Ronnie, Jean Attending Unavailable Beaver, Lisseth Primary Care Unavailable Jh, Lisseth Referring Unavailable Ronnie, Jean Attending Unavailable Jh, Lisseth Primary Care Unavailable Care Physician, No Primary Referring Unava ilable Ronnie, Jean Attending Unavailable Care Physician, No Primary Primary Care Unava ilable Jh, Lisseth Referring Unavailable Jh, Lisseth Primary Care Unavailable Sonia Quarles Attending Unavailable Ronnie, [place] Attending Unavailable Jh, Lisseth Primary Care Unavailable Jh, Lisseth Primary Care Unavailable Kasandra Hinkle Attending Unavailable White, Nicole L Referring Unavailable Ronnie, [place] Attending Unavailable Jh, Lisseth Primary Care Unavailable Beaver, Lisseth Primary Care Unavailable Radha Dumont Attending Unavailable Care Physician, No Primary Primary Care Unava ilable Ronnie, Jean Attending Unavailable Beaver, Lisseth Primary Care Unavailable Michel Haq Attending Unavailable Jh, Lisseth Primary Care Unavailable FUAD JOHNSON Attending Unavailable FUAD JOHNSON Referring Unavailable Beaver, Lisseth Attending Unavailable Beaver, Lisseth Primary Care Unavailable Jh, Lisseth Referring Unavailable Beaver, Lisseth Primary Care Unavailable Lakhwinder KUMAR, Shawanda Reece Referring Unavail able Shawanda Pope Attending Unavail able Jh, Lisseth Referring Unavailable Beaver, Lisseth Primary Care Unavailable Pinky Beth Attending Unavailable Care Physician, No Primary Referring Unava ilable Care Physician, No Primary Primary Care Unava ilable Jay Alvarez Attending Unavailable Beaver, Lisseth Attending Unavailable Beaver, Lisseth Primary Care Unavailable Care Physician, No Primary Referring Unava ilable Hj, Lisseth Attending Unavailable Beaver, Lisseth Primary Care Unavailable Beaver, Lisseth Referring Unavailable Jh, Lisseth Primary Care Unavailable Sonia Quarles Attending Unavailable Beaver, Lisseth Referring Unavailable Beaver, Lisseth Attending Unavailable Jh, Lisseth Primary Care Unavailable Beaver, Lisseth Referring Unavailable Beaver, Lisseth Primary Care Unavailable Beaver, Lisseth Referring Unavailable Jay Alvarez Attending Unavailable Michel Haq Attending Unavailable Michel Haq Referring Unavailable Jh, Lisseth Primary Care Unavailable Mariah Brewer Admitting Unavailable Mariah Brewer Consulting Unavailable Jh, Lisseth Primary Care Unavailable Denisse Guan Attending Unavailable Karthik Tang Consulting Unavailable Clifton Alexander Consulting Unavailable Clifford Cody Consulting Unavailable Deon Mcclellan Consulting Unavailable Jeanie Hunt Consulting Unavailable Rajan De La Cruz Consulting Unavailable Scout Curry Consulting Unavailable Glenys Mcmahan Consulting Unavailab Pedro Luis Clarke Consulting Unavailable Jamar Chi Consulting Unavailable Jesus Varela Consulting Unavailable Lara Durant Consulting Unavailable [place], Drakeia Consulting Unavailable Mclean, Camila Consulting Unavailable John, Guilherme Consulting Unavailable Dada Tidwell Consulting Unavailable Mario Keller Consulting Unavailable Flash Newton Consulting Unavailable Lida Falcon Consulting Unavailable Jhony Zhang Consulting Unavailable Varun Collier Consulting Unavailable Yusuf Field Consulting Unavailable Thomas Paulino Consulting Unavailable Jean Trujillo Consulting Unavailable Michel Haq Consulting Unavailable Haider Smith Consulting Unavailable WALLACE LUGO Admitting Unavailable CONSULT, INFECTIOUS DISEASE Consulting Unav ailable JOHN CASTRO Attending Unavailable KAITLYN HALL Primary Care Unavailable JOSIE RIVERA Referring Unavailable Allergies Allergy Classification Reported Allergen(s) Allergy Type Date of Onset Reaction(s) Facility HMG-CoA Reductase Inhibitors (statins) (2 sources) Simvastatin Drug Allergy 0 [facility] Latex (2 sources) Latex Substance Allergy 0 [facility] metFORMIN (2 sources) metFORMIN Drug Allergy 0 [facility] (20 sources) natural latex rubber; Translations: [LATEX] allergy to substance 1 Pruritic rash [facility] Work Phone: (20 sources) simvastatin; Translations: [SIMVASTATIN] Drug Allergy 3 Other (See Comments), Skin irritation, Other: See Comments [facility] Work Phone: (20 sources) Adhesive Tape; Translations: [ADHESIVE TAPE (ROSINS)] Propensity to adverse reactions (disorder) 6 Itching [facility] Other [facility] (20 sources) Latex Propensity to adverse reactions to drug 0 Rash [facility] (20 sources) metFORMIN; Translations: [METFORMIN] Drug Allergy 9 Itching, Tachyarrhythmi a, Other: See Comments [facility] Comment on above: arrythmia caused arrhythmia is sues (15 sources) Lovastatin Drug Allergy Shirley Lemos.Shanell. Work Phone: Comment on above: itching (15 sources) Seasonal allergy Adverse Reaction Gisselle LemosP.M. Work Phone: (3 sources) Adhesive agent; Translations: [adhesive] Allergy to substance 2 redness [facility] Repository (1 source) Latex Drug allergy (disorder) 2 [facility] (2 sources) metFORMIN Drug Allergy 2 [facility] (20 sources) Latex; Translations: [LATEX, NATURAL RUBBER] Drug Allergy 4 Rash [facility] (20 sources) Seasonal allergy; Translations: [SEASONAL ALLERGIES] Allergy to substance 3 Itching [facility] (20 sources) natural latex rubber Allergy to substance 4 [facility] (20 sources) Adhesive Tape; Translations: [adhesive tape] Propensity to adverse reactions 5 [facility] (1 source) Daptomycin Propensity to adverse reactions to drug 5 Myalgia [facility] Work Phone: (1 source) *ADHESIVE TAPE Propensity to adverse reactions 4 [facility] (1 source) natural latex rubber Drug allergy (disorder) 5 [facility] Repository Medications Current Medications Medication Drug Class(es) Dates Sig (Normalized) Sig (Original) acetylcyst/[id number]/lev omefol (METAFOLBIC PLUS ORAL) (20 sources) acetylcyst/methy [...] Mc g/inh as needed ALBUTEROL SULFATE NEBU [id number] Lissette Banerjee NP End: 12-30-2024 End: 10-13-2021 take 2 puff(s) by inhalation every six hours as needed for wheezing albuterol 90 mcg/actuation inhaler Inhale 2 puffs every 6 (six) hours as needed for wheezing . 0 10/13/2021 Discontinued (Discontinued by another clinician) Comment on above: Inhale 2 Puffs as in structed every 4 hours as needed. albuterol 108 (90 Base) MCG/ACT inhaler (3 sources) Start: 03-25-20 19 albuterol 108 (90 Base) MCG/ACT inhaler albuterol 90 mcg/actuation inhaler (13 sources) take 2 puff(s) by inhalation every six hours as needed for wheezing albuterol 90 mcg/actuation inhaler Inhale 2 puffs every 6 (six) hours as needed for wheezing . 0 Active amoxicillin 500 mg oral capsule (1 source) Penicillin-class Antibacterial Start: 09-06-19 take 1 capsule by mouth every eight hours amoxicillin 500 MG capsule Indications: Acute non-recurrent maxillary sinusitis Take 1 capsule by mouth every 8 hours. 30 capsule 0 09/06/2021 Active atorvastatin 10 mg oral tablet (20 sources) HMG-CoA Reductase Inhibitor Start: 01-14-20 Start: 08-03-2014 End: 01-12-2025 Comment on above: Take 1 tablet by jeffry once daily. Blood Pressure KIT (2 sources) Start: 09-08-2020 Blood Pressure KIT Indications: Benign essential HTN As directed 1 each 0 09/08/2020 Active Blood-Glucose Meter (Onetouch Verio Reflect Meter) misc (1 source) Start: 10-15-2024 Blood-Glucose Meter (Onetouch Verio Reflect Meter) misc Active 0 .Route October 15, 2024 12:00am As directed Blood-Glucose Meter,Continuous (Freestyle Lance 3 [place]) misc (1 source) Start: 10-15-2024 Blood-Glucose Meter,Continuous (Freestyle Lance 3 [place]) misc Active 0 .Route October 15, 2024 12:00am As directed Blood-Glucose Sensor (Freestyle Lance 3 Plus Sensor) device (1 source) Start: 10-15-2024 Blood-Glucose Sensor (Freestyle Lance 3 Plus Sensor) device Active 0 .Route 2 October 15, 2024 12:00am 1 sensor q 15 carvedilol 25 mg oral tablet (20 sources) alpha-Adrenergic Awilda, beta-Adrenergic Awilda Start: 02-03-2025 Start: 01-10-2025 End: 01-11-2025 Start: 05-29-2024 End: 01-12-2025 Start: 06-18-2013 End: 04-07-2024 take 1 tablet by mouth twice daily carvedilol (COREG) 25 mg tablet Indications: Coronary artery disease involving [place] heart without angina pectoris, unspecified vessel or [...] Start: 05-05-2013 take 1 tablet by jeffry twice daily COREG 6.25 MG TABS One tablet by mouth twice daily CARVEDILOL [id number] Jean Trujillo MD Comment on above: Take 1 tablet by jeffry twice daily. celecoxib 200 mg oral capsul e (2 sources) Nonsteroidal Anti-inflammatory Drug Start: 02-13-2022 cholecalciferol 1.25 mg oral capsule (20 sources) Vitamin D Start: 05-29-2024 End: 10-22-2024 Start: 08-07-2019 End: 09-01-2019 take 1 tablet by mouth every week Cholecalciferol (Vitamin D3) (Vitamin D) 1,000 UNIT Tablet Discontinued 1000 UNIT PO Weekly August 07, 2019 1:00am September 01, 2019 10:15am Start: 05-05-2013 End: 11-26-2013 take 1 tablet by mouth once daily VITAMIN D3 5000 UNIT CAPS One tablet by mouth daily CHOLECALCIFEROL [id number] Jean Trujillo MD Cpap (15 sources) Start: [...] D2) (Vitamin D2) 50,000 UNIT Capsule Active 88115 UNIT PO TH September 01, 2019 1:00am Flash Glucose Scanning Reade r (1 source) Start: 08-04-2018 Flash Glucose Scanning [place] Active 0 ( .Route .MEDSUPPLY August 04, [...] s ugar before meals and at bedtime glucagon 3 mg nasal powder (1 source) Antihypoglycemic Agent Start: 01-11-2025 3 ml insulin glargine 100 unt/ml pen injector (20 sources) Insulin Analogue Start: 02-03-2025 End: 02-04-2025 Start: 10-19-2024 End: 10-21-2024 Insulin Glargine (Lantus Mi ostar U-100 Insulin) [...] long-term current use of insulin (HCC) Inject 64 Units into the skin daily. Do not take this if your glucose is less than 150. 50 mL 3 10/24/2021 Active Start: 08-16-2021 insulin glargi ne (LANTUS) 100 UNIT/ML injection Indications: Type 2 diabetes mellitus without complication, with long-term current use of insulin (HCC) Inject 64 Units into the skin daily. [...] without long-term current use of insulin (HCC) Inject 70 Units into the skin daily. 5 Adjustable Dose Pre-filled Pen Syringe 3 04/22/2019 08/03/2019 Discontinued Start: 02-24-2019 End: 03-01-2023 insulin glargine (BASAGLAR K PHILLEN U-100 INSULIN) 100 unit/mL (3 mL) inpn [...] March 24, 2018 11:33am Start: 02-05-2017 End: 01-12-2025 Start: 02-05-2017 End: 01-12-2024 inject 70 [IU] [...] 10:49am Comment on above: Inject 70 Units subc utaneously every evening. Inject 40 Units subc utaneously twice daily. Inject 45 Units subc utaneously twice daily. Inject 45 Units subc utaneously two times a day. Inject 90 Units subc utaneously every morning. 3 ml insulin lispro 200 unt/ml pen injector (20 sources) Insulin Analog Start: 02-03-2025 Start: 01-11-2025 Start: 12-31-2024 End: 01-11-2025 Start: 10-19-2024 Insulin Lispro 100 unit/mL insulin pen Active 30 U SC THREE TIMES A DAY October 19, 2024 10:22am 10 u w/ snacks Start: 10-15-2024 End: 01-11-2025 Start: 10-15-2024 End: 10-19-2024 Insulin Lispro 200 [...] May 06, 2024 10:23am Start: 12-24-2023 End: 01-12-2025 Start: 11-29-2023 End: 12-24-2023 insulin lispro (HUMALOG KWIK PEN) 100 unit/mL Indications: Type 2 diabetes mellitus with diabetic neuropathy, with long-term current use of insulin (HCC) INJECT 18 UNITS SUBCUTANEOUSLY THREE TIMES A DAY BEFORE MEALS 15 mL 10 11/29/2023 12/24/2023 Discontinued Start: 11-14-2023 End: 11-29-2023 insulin lispro (HUMALOG KWIK PEN) 100 unit/mL Indications: Type 2 diabetes mellitus with diabetic neuropathy, with long-term current use of insulin (HCC) INJECT 15 UNITS SUBCUTANEOUSLY THREE TIMES A DAY BEFORE MEALS 15 mL 10 11/14/2023 11/29/2023 Discontinued Start: 10-30-2023 End: 11-14-2023 insulin lispro (HUMALOG KWIK PEN) 100 unit/mL Indications: Type 2 diabetes mellitus with diabetic neuropathy, with long-term current use of insulin (HCC) INJECT 11 UNITS SUBCUTANEOUSLY THREE TIMES A DAY BEFORE MEALS 15 mL 10/30/2023 11/14/2023 Discontinued Start: 04-18-2023 End: 10-30-2023 inject 8 [IU] by subcutaneous injection three times daily before mealtime insulin lispro (HUMALOG KWIKPEN) 100 unit/mL Indications: Type 2 diabetes mellitus with diabetic neuropathy, with long-term current use of insulin (HCC) INJECT 8 UNITS SUBCUTANEOUSLY THREE TIMES A DAY BEFORE MEALS 15 mL 08/30/2023 10/30/2023 Discontinued Start: 01-22-2023 End: 03-19-2023 [...] Discontinued 0 SC THREE TIMES A DAY March 11, 2018 8:53am May 06, 2018 [...] Inject under the skin . 0 Active lidocaine 0.04 mg/mg medicated patch (5 sources) Antiarrhythmic, Amide Local Anesthetic Start: 01-12-2025 Start: 01-07-2025 End: 01-11-2025 Start: 01-04-2025 End: 01-04-2025 Start: 12-25-2024 End: 12-25-2024 Metafolbic Plus (12 sources) Start: 02-02-2021 metroNIDAZOLE 500 mg oral tablet (1 source) Nitroimidazole Antimicrobial Start: 08-04-2019 End: 08-04-2019 take 4 tablets by mouth once metroNIDAZOLE (FLAGYL) 500 MG tablet Indications: Trichomonal vaginitis Take 4 tablets by mouth one time for 1 dose. 4 tablet 0 08/04/2019 08/04/2019 Active ONE TOUCH ULTRA TEST (13 sources) Start: 05-11-2019 ONE TOUCH ULTRA TEST TEST BLOOD SUGAR ONE TO THREE TIMES A DAY 400 strip 3 05/11/2019 Active perflutren lipid microspheres 1.3 mL in NaCl (PF) 0.9% 10 mL injection (DEFINITY) (7 sources) Start: 01-29-2023 End: 04-29-2024 perflutren lipid microspheres 1.3 mL in NaCl (PF) 0.9% 10 mL injection (DEFINITY) Polyethylene Glycols (13 sources) Polyethylene Glycol 3350 (MIRALAX PO) Take by mouth. 0 Active Potassium Chloride (Klor-Con M20) 20 MEQ Tab.Er.Prt (1 source) Start: 05-02-2022 take 1 tablet by mouth once daily Potassium Chloride (Klor-Con M20) 20 MEQ Tab.Er.Prt Active 20 MEQ PO Daily May 02, 2022 12:00am pramipexole dihydrochloride 0.75 mg oral tablet (20 sources) Nonergot Dopamine Agonist Start: 08-02-2023 End: 02-12-2024 take 1 tablet by mouth once daily [...] One tablet by mouth daily PRAMIPEXOLE DIHYDROCHLORIDE [id number] Shawanda Keane PA-C Comment on above: Take 1 tablet by jeffry th daily at bedtime. Take 1.3333 tablets by mouth daily at bedtime. pregabalin 75 mg oral capsule (18 sources) Start: 10-10-19 take 1 capsule by mouth twice daily pregabalin (LYRICA) 75 MG capsule Take 1 (one) capsule (75 mg total) by mouth 2 (two) times a day . 0 03/27/2022 Active semaglutide (OZEMPIC) 0.25 mg or 0.5 mg (2 mg/3 mL) pen (18 sources) Start: 04-25-20 inject 0.5 mg by subcutaneous injection every [...] 9 mg/ml prefilled syringe (20 sources) Start: 01-08-2025 End: 01-11-2025 Start: 01-02-2025 End: 01-02-2025 Start: 12-28-2024 End: 12-28-2024 Start: 12-23-2024 End: 01-11-2025 Start: 01-29-2023 End: 04-29-2024 sodium chloride 0.9 % (flush ) 10 mL (BD POSIFLUSH) spironolactone 25 mg oral ta blet (20 sources) Aldosterone Antagonist Start: 11-04-2024 End: 01-11-2025 Start: 02-16-2014 End: 05-06-2024 Comment on above: [...] mg/ml topical cream (12 sources) Start: 11-17-2020 (20 sources) Start: 02-04-2025 Start: 02-03-2025 End: 02-04-2025 Start: 02-03-2025 Start: 01-09-2025 End: 01-11-2025 [Order 1 Start] Name: Enoxap gloria Sodium (LOVENOX) injection 40 mg Signed Summary: 40 mg, Subcutaneous, DAILY, First dose (after last modification) on 01/09/25 at 1100, Until Discontinued, For SUBCUTANEOUS route ONLY: alternate injection sites between left and right abdominal wall, pinching location and avoiding area around navel. If unable to use abdominal sites, may use the front or side of thighs., Indications: DVT/PE prophylaxis [Order 1 End] Start: 01-05-2025 End: 01-09-2025 Start: 01-01-2025 End: 01-05-2025 Start: 12-30-2024 End: 01-11-2025 inject 50 [IU] by subcutaneous injection every twelve hours [Order 1 Start] Name: insulin glargine-yfgn (SEMGLEE) injection 50 Units Signed Summary: 50 Units, Subcutaneous, EVERY 12 HOURS NON-STANDARD, First dose (after last modification) on Sat12/30/24 at 2200, Until Discontinued, Do not mix in syringe with other insulins. [Order 1 End] [Order 2 Start] Name: NOTIFY PHYSICIAN, OTHER Signed Summary: Routine, CONTINUOUS, Starting on Sat12/30/24 at 1113, Until Specified, Who to Notify: Ceo And President, Call Ceo And President if a.m. Glucose is less than 80 and dose reduction not already ordered. [Order 2 End] Start: 12-29-2024 End: 12-30-2024 Start: 12-29-2024 End: 01-11-2025 apply 7.5 g by subcutaneous injection once at bedtime [Order 1 Start] Name: Insulin lispro (HUMALOG) injection Signed Summary: Subcutaneous, 4 TIMES DAILY WITH MEALS & AT BEDTIME, First dose (after last modification) on Sat12/29/24 at 0800, Until Discontinued, Insulin to carb ratio: Non-Standard: 1 unit insulin = 2 grams carbs every meal and at bedtime Correction Factor: 150-175 = 3 unit 176-200 = 6 units 201-225 = 9 units 226-250 = 12 units 251-275 = 15 units 276-300 = 18 units 301-325 = 21 units 326-350 = 24 units 351-375 = 27 units 376-400 = 30 units Kwikpen: Prime pen before each injection; refer to Pen Priming and Care Handout for further details. Warning! Confirm patient. Insulin pen is for labeled individual patient use ONLY. [Order 1 End] [Order 2 Start] Name: Insulin lispro (HUMALOG) injection Signed Summary: Subcutaneous, NEEDED, Starting on Sat12/29/24 at 0740, Until Sat01/11/25 at 1813, Other, As needed for snacks, Insulin to carb ratio: Non-Standard: 1 unit insulin = 2 grams carbs Correction Factor: not to be used with this order. Kwikpen: Prime pen before each injection; refer to Pen Priming and Care Handout for further details. Warning! Confirm patient. Insulin pen is for labeled individual patient use ONLY. [Order 2 End] [Order 3 Start] Name: BLOOD GLUCOSE (POC DEVICE) Signed Summary: Routine, 4 TIMES DAILY BEFORE MEALS & AT BEDTIME, First occurrence on Sat12/29/24 at 0745, If any Blood Glucose (POC) is greater than 300mg/dl, then repeat Blood Glucose (POC) in 2 hours. If the initial blood glucose was greater than 300mg/dl and if second blood glucose is greater than 200md/dl, then notify Ceo And President. [Order 3 End] [Order 4 Start] Name: BLOOD GLUCOSE (POC DEVICE) Signed Summary: Routine, DIRECTED, Starting on Sat12/29/24 at 0740, Until Specified, For all Blood Glucose LESS THAN 80 mg/dL, treat per Hypoglycemia in Non- Adults Clinical Practice Guideline (CPG) and recheck glucose 15 min after treatment. Repeat per CPG until glucose GREATER THAN 80 mg/dL. Once glucose IS GREATER THAN 80 mg/dL, recheck Blood Glucose every 1 hour x2, then resume as previously ordered. For Blood Glucose LESS THAN 80 mg/dL on admission OR LESS than 45 mg/dL at any time, obtain POC Blood Glucose every 4 hours for 6 occurrences AFTER treating per CPG. Obtain blood glucose for symptoms of hypoglycemia: sweating, shaking, fatigue, rapid pulse, slow thinking & dizziness. Notify physician w/results. Obtain blood glucose for symptoms of hyperglycemia: excessive thirst, blurred vision, excessive urination & tiredness. Notify physician w/results. If patient NPO, obtain POC Blood Glucose prior to administration of any insulin products. [Order 4 End] [Order 5 Start] Name: COMMUNICATION ORDER FOR NURSING CARE: For Blood Glucose LESS THAN 80 mg/dl Signed Summary: Routine, CONTINUOUS, Starting on Sat12/29/24 at 0741, Until Specified, For Blood Glucose LESS THAN 80 mg/dl follow Hypoglycemia in Non- Adults Clinical Practice Guideline (CPG) [Order 5 End] [Order 6 Start] Name: Dextrose 50% injection 7.5-25 g Signed Summary: 7.5-25 g, Intravenous, ADMINISTER DIRECTED, Starting on Sat12/29/24 at 0740, Until Sat01/11/25 at 1813, Blood glucose <80 mg/dL, For patients who are not alert, are NPO, or are on IV insulin infusion administer as directed per Hypoglycemia in Non- Adults Clinical Practice Guideline. For Blood Glucose: 60-79 mg/dL administer 7.5 gm (15ml); 45-59 mg/dL administer 12.5 gm (25ml); less than 45mg/dL administer 25gm (50ml). ++ If additional dextrose 50% needed, contact pharmacy or obtain from crash cart ++ [Order 6 End] [Order 7 Start] Name: glucose (GLUTOSE) 40 % oral gel 1-2 Tube Signed Summary: 1-2 Tube, Oral, ADMINISTER DIRECTED, Starting on Sat12/29/24 at 0740, Until Sat01/11/25 at 1813, Blood glucose <80 mg/dL, For patients who are alert, able to tolerate PO intake and with intact cognitive status administer as directed per Hypoglycemia in Non- Adults Clinical Practice Guideline. For Blood Glucose: 60-79 mg/dL administer 1 tube; 45-59 mg/dl administer 1.5 tubes; less than 45 mg/dL administer 2 tubes. Each tube of 37.5g delivers 15g of carbohydrate. [Order 7 End] [Order 8 Start] Name: NOTIFY PHYSICIAN, Blood Glucose LESS THAN 80 mg/dl Signed Summary: Routine, CONTINUOUS, Starting on Sat12/29/24 at 0741, Until Specified, Who to Notify: Ceo And President, For all Blood Glucose LESS THAN 80 mg/dl, notify Ceo And President after treatment per Hypoglycemia in Non- Adults Clinical Practice Guideline [Order 8 End] [Order 9 Start] Name: Carbohydrate counts with meals Signed Summary: Routine, CONTINUOUS, Starting on Sat12/29/24 at 0741, Until Specified, Carbohydrate counts are to be done after each patient meal and with snack. [Order 9 End] Start: 12-28-2024 End: 12-29-2024 Start: 12-24-2024 End: 12-24-2024 Start: 12-24-2024 End: 12-29-2024 Start: 12-24-2024 End: 12-31-2024 [Order 1 Start] Name: PLATEL ET COUNT Signed Summary: Routine, EVERY 3 DAYS AM LAB, First occurrence on Sat12/27/24 at 0500, Until Specified, New collection [Order 1 End] Start: 12-24-2024 End: 01-11-2025 take 4 mg by mouth every six hours as needed [Order 1 Start] Name: Ondansetron (ZOFRAN-ODT) disintegrating tablet 4 mg Signed Summary: 4 mg, Oral, EVERY 6 HOURS NEEDED, Starting on Becky 12/24/24 at 0012, Until Sat01/11/25 at 1813, Nausea / Vomiting [Order 1 End] [Order 2 Start] Name: Ondansetron 4mg/2ml (ZOFRAN) injection 4 mg Signed Summary: 4 mg, Intravenous, EVERY 6 HOURS NEEDED, Starting on Becky 12/24/24 at 0012, Until Sat01/11/25 at 1813, Refractory Nausea Vomiting [Order 2 End] Start: 10-15-2024 Start: 09-07-2024 End: 10-15-2024 Start: [...] 03-11-2018 End: 03-11-2018 Start: 08-12-2017 End: 10-07-2017 (1 source) (1 source) Start: 01-11-2025 Completed/Discontinued Medications Medication Drug Class(es) Dates Sig (Normalized) Sig (Original) acetaminophen 325 mg oral tablet (1 source) Start: 12-23-2024 End: 01-11-2025 take 650 mg by mouth every six hours as needed acetaminophen 300 mg / codeine phosphate 30 [...] Take 1 tablet by jeffry once daily. aluminum hydroxide 40 mg/ml / magnesium hydroxide 40 mg/ml / simethicone 4 mg/ml oral suspension (1 source) Start: 12-23-2024 End: 01-11-2025 take 30 mL by mouth every six hours as needed aspirin 81 mg delayed release oral tablet (20 sources) Nonsteroidal Anti-inflammatory Drug Start: 08-05-2024 End: 11-04-2024 Start: 05-05-2013 End: 12-30-2024 take 1 tablet by mouth once daily ASPIRIN 81 MG TABS One tablet by mouth daily ASPIRIN [id number] Rima Eugene RN Start: 04-18-2013 End: 05-06-2024 Comment on above: Take 1 tablet by jeffry once daily. baclofen 10 mg oral tablet (9 sources) gamma-Aminobutyric Acid-ergic Agonist Start: 08-24-19 End: 05-02-20 take 1 tablet by mouth at bedtime Baclofen (Lioresal) 10 MG Tablet Discontinued 10 MG PO Bedtime May 29, 2021 1:00am May 02, 2022 10:51am bisacodyl 10 mg rectal suppository (2 sources) Stimulant Laxative Start: 05-06-20 13 End: 11-27-19 14 BISACODYL 10 MG SUPP 1 suppository rectally as needed BISACODYL [id number] Jean Trujillo MD Blood-Glucose Meter (FREESTYLE SYSTEM KIT) monitoring kit (13 sources) Start: 07-19-19 17 Blood-Glucose Meter (FREESTYLE SYSTEM KIT) monitoring kit Indications: Type 2 diabetes mellitus without complication, unspecified group home insulin use status 1 Each as needed. 1 Each 0 07/19/2016 Active Comment on above: 1 Each as needed. Blood-Glucose Meter (ONETOUCH ULTRA2) monitoring kit (13 sources) Blood-Glucose Me ter (ONETOUCH ULTRA2) monitoring kit 1 Each as needed. 0 Active Comment on above: 1 Each as needed. cefadroxil 500 mg oral capsule (5 sources) Cephalosporin Antibacterial Start: 06-15-20 21 End: 09-18-19 22 cetirizine hydrochloride 10 mg oral capsule (20 sources) Histamine-1 Receptor Antagonist Start: 05-16-20 18 End: 10-23-19 Start: 05-13-2018 End: 03-15-2023 take 1 tablet by mouth once daily as needed cetirizine (ZYRTEC) 10 mg tablet Take 1 tablet by mouth once daily as needed (for itching, sneezing or runny nose). 30 tablet 03/15/2023 Active Comment on above: Take 1 tablet by jeffry th once daily as needed (for itching, sneezing or runny nose). cider vinegar 300 mg oral tablet (2 sources) Start: End: take 1 tablet by mouth twice daily Cider Vinegar (Apple Cider Vinegar) 300 MG Tablet Discontinued 300 MG PO Twice Daily December 16, 2020 12:00am May 29, 2021 9:11am DAPTOmycin 350 mg injection (2 sources) Lipopeptide Antibacterial Start: 5 End: 5 Start: 12-24-2024 End: 12-24-2024 dexamethasone 1 mg oral tabl et (20 sources) Corticosteroid Start: 08-05-2024 End: 10-19-2024 Start: 08-05-2024 End: 10-19-2024 take 1 tablet [...] mg as needed (for physical therapy). diphenhydrAMINE hydrochloride 25 mg oral tablet (20 sources) Histamine-1 Receptor Antagonist Start: 01-02-2025 End: 01-11-2025 take 25 mg by mouth every six hours as needed Start: 09-30-2013 End: 08-12-2017 Start: 05-06-2013 End: 03-16-2014 BENADRYL 25 MG TABS PRN 2012 DIPHENHYDRAMINE HCL [id number] Jean Trujillo MD End: 12-30-2024 DULoxetine 60 mg delayed release oral capsule (20 sources) Serotonin and Norepinephrine Reuptake Inhibitor Start: 08-02-2023 End: 10-22-2024 Start: 03-29-2023 take 1 capsule by mo [facility] once daily DULoxetine (CYMBALTA) 60 mg capsule Indications: Type 2 diabetes mellitus with diabetic neuropathy, with long-term current use of insulin (HCC) Take 1 capsule by mouth once daily. 90 capsule 1 03/29/2023 Active Comment on above: Take 1 capsule by mo [facility] once daily. Take 1 capsule by mo [facility] two times a day. empagliflozin 10 mg oral tab let (20 sources) Sodium-Glucose Cotransporter 2 Inhibitor Start: 07-30-2018 [...] 3 08/21/2019 12/15/2019 Discontinued (Therapy completed) Start: 05-06-2013 End: 12-30-2024 Start: 05-05-2013 take 0.5 tablet by m [facility] once daily VASOTEC 2.5 MG TABS 1/2 tablet by mouth daily ENALAPRIL MALEATE [id number] Josephine Knight RN Start: 04-24-2013 End: 11-07-2017 [...] Comment on above: Take 1 tablet by [facility] once daily. enalapril maleate 10 mg / [...] 05-29-2024 Start: 04-03-2023 take 1 capsule by [facility] every week ergocalciferol 50,000 unit capsule (VITAMIN D2, DRISDOL) Take 1 capsule by mouth one time a week. 12 capsule 3 04/03/2023 Active Start: 06-01-2019 Vitamin D, Erg ocalciferol, 1.25 MG (70558 UT) CAPS Indications: Vitamin D deficiency Take [...] Comment on above: Take 1 capsule by [facility] once each week. Take 1 capsule by [facility] one time a week. 2 ml fentaNYL 0.05 mg/ml injection (1 source) Opioid Agonist Start: 5 End: 5 ferrous sulfate 325 mg oral tablet (2 sources) Start: 3 End: 3 take 1 tablet by mouth once daily FERROUS SULFATE 325 (65 Fe) MG TABS One tablet by mouth daily FERROUS SULFATE [id number] Shawanda Keane PA-C fexofenadine hydrochloride 180 mg oral tablet (20 sources) Histamine-1 Receptor Antagonist Start: 9 End: 4 Comment on above: Take 1 tablet by jeffry once daily. Flash Glucose Scanning [place] (Freestyle Lance 10 Day [place] [facility] [place] (6 sources) Start: 8 End: 9 Flash Glucose Scanning [place] (Freestyle Lance 10 Day [place]) [facility] [place] Discontinued 0 .ROUTE .MEDSUPPLY May 28, 2018 1:00am August 04, 2018 6:38pm use to moniter Bg via sensor Start: 05-12-2018 End: 05-26-2018 Flash Glucose Scanning [place] (Freestyle Lance 10 Day [place]) [facility] [place] Discontinued 0 .ROUTE .MEDSUPPLY May 12, 2018 3:50pm May 26, 2018 11:49am use as directed to moniter BG Start: 05-06-2018 End: 05-12-2018 Flash Glucose Scanning [place] (Freestyle Lance 10 Day [place]) [facility] [place] Discontinued 0 .ROUTE .MEDSUPPLY May 06, 2018 12:00am May 12, 2018 3:50pm use as directed to moniter BG flash glucose scanning [place] (FREESTYLE LANCE 14 DAY [place]) [facility] Start: 12-25-2018 End: 01-22-2023 flash glucose scanning [place] (FREESTYLE LANCE 14 DAY [place]) [facility] [place] Use reader to check blood glucose (scan at least every 8 hours) 1 Each 0 12/25/2018 01/22/2023 Discontinued Start: 11-17-2018 End: 01-22-2023 flash glucose scanning [place] (FREESTYLE LANCE 14 DAY [place]) [facility] [place] Indications: Uncontrolled type 2 diabetes mellitus with diabetic neuropathy, without long-term current use of insulin Use for blood sugar four times a day. 1 Each 0 11/17/2018 01/22/2023 Discontinued Comment on above: Use for blood sugar four times a day. Use reader to check blood glucose (scan at least every 8 hours) Flash Glucose Scanning [place] (Freestyle Lance 14 Day [place]) misc (3 sources) Start: 09-07-2024 End: 10-15-2024 Flash Glucose Scanning [place] (Freestyle Lance 14 Day [place]) misc Discontinued 0 .ROUTE .MEDSUPPLY September 07, 2024 12:39pm October 15, 2024 10:56am As directed to monitor glucose levels with sensors Start: 08-04-2018 End: 09-07-2024 Flash Glucose Scanning [place] (Freestyle Lance 14 Day [place]) misc Discontinued 0 .ROUTE .MEDSUPPLY August 04, 2018 1:00am September 07, 2024 12:39pm As directed to monitor glucose levels with sensors Start: 08-04-2018 Flash Glucose Scanning [place] (Freestyle Lance 14 Day [place]) misc Active 0 .ROUTE .MEDSUPPLY August 04, [...] meals and at bedtime. Flash Glucose Scanning [place] 1 EACH misc (1 source) Start: 08-04-2018 End: 10-15-2024 Flash Glucose Scanning [place] 1 EACH misc Discontinued 0 ( .Route [...] Day Sensor) kit Discontinued 0 .ROUTE .MEDSUPPLY 3 May 12, 2018 3:50pm May 26, 2018 11:49am apply to back of arm to moniter BG. change q 10 days Start: 05-06-2018 End: 05-12-2018 Flash Glucose Sensor (Freest yle Lance 10 Day Sensor) kit Discontinued 0 .ROUTE .MEDSUPPLY 3 May 06, 2018 12:00am May 12, 2018 [...] Lance 2 Sensor) kit Discontinued 0 .Route 6 June 29, 2024 1:00pm October 15, 2024 10:56am As directed Start: 06-15-2024 End: 06-29-2024 Flash Glucose Sensor (Freest yle Lance 2 Sensor) kit Discontinued 0 .Route 1 June 15, 2024 1:00am June 29, 2024 1:01pm As directed Flash Glucose Sensor 1 EACH kit (1 source) Start: 08-04-2018 End: 10-15-2024 Flash Glucose Sensor 1 EACH kit Discontinued 0 ( .Route .MEDSUPPLY August 04, 2018 6:37pm October 15, 2024 10:56am apply to back of arm to moniter BG. change q 10 days fluconazole 200 mg oral tablet (19 sources) Azole Antifungal Start: 10-15-2024 End: 10-19-2024 [...] once a day as needed FLUTICASONE PROPIONATE [id number] Lissette Banerjee NP End: 10-13-2021 take 2 [...] 11/17/2019 12/15/2019 Discontinued (Reorder) Start: 04-24-2013 End: 12-30-2024 Start: 04-24-2013 End: 10-13-2021 take 40 mg [...] (20 sources) Anti-epileptic Agent Start: 05-06-2024 End: 01-11-2025 Start: 12-16-2020 End: 05-02-2022 take 1 capsule by mouth twice daily Gabapentin (Neurontin) 300 MG Capsule Discontinued 300 MG PO Twice Daily December 16, 2020 12:00am May 02, 2022 10:50am Start: 11-17-2020 End: 03-06-2024 take 1 capsule by mouth once daily at bedtime gabapentin (NEURONTIN) 300 mg capsule Indications: Type 2 diabetes mellitus with diabetic neuropathy, with long-term current use of insulin (HCC) Take 1 capsule by mouth daily at bedtime for 270 days. 90 capsule 2 06/10/2023 Active End: 03-15-2023 take 1 capsule by mouth three times daily gabapentin (NEURONTIN) 300 mg capsule Take 300 mg by mouth three times daily. 0 03/15/2023 Discontinued Comment on above: Take 1 capsule by mo [facility] daily at bedtime for 90 days. Take 300 mg by mouth three times daily. Take 1 capsule by mo [facility] daily at bedtime for 270 days. glipiZIDE 10 mg oral tablet (20 sources) Sulfonylurea Start: 04-18-2013 End: 08-12-2017 Start: [...] blood glucose 1-3 times daily. GLUCOSE BLOOD [id number] Lissette Banerjee NP glyBURIDE 5 mg oral tablet (20 sources) [...] Comment on above: Take 1 tablet by [facility] daily with breakfast. Take 5 mg by mouth. Take 2 tablets by mo [facility] daily with breakfast. hydrOXYzine hydrochloride 10 mg oral tablet (20 sources) Antihistamine Start: 01-03-2025 End: 01-11-2025 Start: 05-29-2021 take 1 capsule by mo [facility] once daily Hydroxyzine Pamoate (Vistaril) 25 MG [...] Discontinued Comment on above: Inject 90 Units subcutaneously daily at bedtime. insulin lispro (HUMALOG KWIKPEN) 100 unit/mL (14 sources) Start: 04-18-2023 inject 8 [IU] by subcutaneous injection three times daily before mealtime insulin lispro (HUMALOG KWIKPEN) 100 unit/mL Indications: Type 2 diabetes mellitus with diabetic neuropathy, with long-term current use of insulin (HCC) INJECT 8 UNITS SUBCUTANEOUSLY THREE TIMES A DAY BEFORE MEALS 15 mL 10 04/18/2023 Active Start: 04-11-2023 inject 8 [IU] by sub cutaneous injection three times daily before mealtime insulin lispro (HUMALOG KWIKPEN) 100 unit/mL Indications: Type 2 diabetes mellitus with diabetic neuropathy, with long-term current use of insulin (HCC) INJECT 8 UNITS SUBCUTANEOUSLY THREE TIMES A DAY BEFORE MEALS 15 mL 10 04/11/2023 Active Start: 03-19-2023 End: 04-11-2023 inject [...] NEEDLE (1 source) Start: 7 PEN NEEDLES 11/27 31G X 8 MM INSULIN PEN NEEDLE [id number] Lissette Banerjee SAND BUFFER Insulin Syringe-Needle U-100 (INSULIN SYRINGE) 1/2 mL 30 x 5/16 syrg (13 sources) Start: 5 Insulin Syringe-Needle U-100 (INSULIN SYRINGE) 1/2 mL 30 x 5/16 syrg Use 1 syringe for each dose 1/day 100 Syringe 11 07/06/2015 Active Comment on above: Use 1 syringe for ea ch dose 1/day linagliptin 5 mg oral tablet (3 sources) Dipeptidyl Peptidase 4 Inhibitor Start: 4 End: 5 take 1 tablet by mouth once daily TRADJENTA 5 MG TABS One tablet by mouth daily LINAGLIPTIN [id number] Shawanda Keane PA-C linezolid 600 mg oral tablet (2 sources) Oxazolidinone Antibacterial Start: 5 End: 5 3 ml liraglutide 6 mg/ml pen injector (20 sources) GLP-1 Receptor Agonist Start: 4 End: 5 Start: 05-06-2024 End: 05-29-2024 Start: 05-06-2024 End: [...] 2024 3:43pm loratadine 10 mg oral tablet (2 sources) Start: 12-24-2024 End: 01-11-2025 Start: 03-16-2014 take 1 tablet by jeffry th once daily LORATADINE 10 MG TABS One tablet by mouth daily LORATADINE [id number] Shawanda Keane PA-C LORazepam 0.5 mg oral tablet (3 sources) Benzodiazepine Start: 01-01-2025 End: 01-01-2025 Start: 05-05-2013 End: 06-18-2013 take 1 tablet by mouth twice daily as needed ATIVAN 0.5 MG TABS One tablet by mouth twice daily as needed LORAZEPAM [id number] Shawanda Keane PA-C losartan potassium 25 mg [...] oral tablet (20 sources) Start: 06-01-2013 End: 01-11-2025 Start: 06-01-2013 End: 10-22-2024 Comment on above: Take 1 tablet by jeffry th twice daily. Take 1 tablet by jeffry th two times a day. 50 ml magnesium sulfate 80 mg/ml injection (1 source) Start: 5 End: 5 meloxicam 7.5 mg oral tablet (2 sources) [...] tablet (20 sources) Biguanide Start: 08-21-2013 End: 12-30-2024 Start: 08-21-2013 METFORMIN HCL 500 MG TABS 2 at breakfast, 1 at lunch, 2 at supper METFORMIN HCL [id number] Jean Trujillo MD Start: 05-05-2013 take 1 tablet by jeffry th three times daily METFORMIN HCL 500 MG TABS One tablet by mouth three times daily METFORMIN HCL [id number] Josephine Knight RN Start: 04-18-2013 End: 08-12-2017 Start: 04-18-2013 End: 08-12-2017 take 1000 mg by mouth twice daily Metformin Discontinued 1000 MG PO TWICE A DAY April 18, 2013 12:00am August 12, 2017 3:37pm 2 ml midazolam 1 mg/ml injection (1 source) Benzodiazepine Start: 12-25-2024 End: 12-25-2024 24 hr mirabegron 50 mg extended release [...] 1 tablet by jeffry th once daily. nystatin 100 unt/mg topical powder (3 sources) Polyene Antifungal Start: 5 End: 5 omeprazole 20 mg delayed release oral capsule (1 source) Proton Pump Inhibitor Start: 4 End: 5 24 hr oxybutynin chloride 15 mg extended release oral tablet (20 sources) Cholinergic Muscarinic Antagonist Start: 8 End: 4 take 1 tablet by mouth once daily [...] SHIRA 5 MG TABS tid OXYBUTYNIN CHLORIDE [id number] Lissette Banerjee SAND BUFFER Comment on above: Take 1 tablet by jeffry th once daily. Take 15 mg by mouth once daily. oxyCODONE hydrochloride 5 mg oral tablet (3 sources) Opioid Agonist Start: 12-29-2024 End: 01-11-2025 take 5 mg by mouth every six hours as needed pantoprazole 40 mg delayed release oral tablet (20 sources) Proton Pump Inhibitor Start: 05-29-2024 End: 01-11-2025 Start: 11-18-2023 take 1 tablet by jeffry [...] once daily Pantoprazole Sodium (Protonix) 40 MG Tablet. Active 40 MG PO Daily August 07, 2019 1:00am Start: 08-12-2017 End: 05-26-2024 Comment on above: TAKE 1 TABLET BY JEFFRY TH TWICE DAILY Take 1 tablet by jeffry th twice daily. take 1 tablet by jeffry th twice a day Take 1 tablet by jeffry th every 12 hours. polyethylene glycol 3350 170 00 mg powder for oral solution (20 sources) Osmotic Laxative Start: 12-23-2024 End: 01-11-2025 Start: 02-02-2020 End: 01-22-2023 polyethylene glycol 3350 (OK RALAX) 17 gram/dose powder Indications: Constipation, unspecified constipation [...] extended release oral tablet (20 sources) Start: 5 End: 5 Start: 12-23-2023 End: 05-06-2024 Start: 08-16-2021 End: 08-23-2023 take 1 tablet by mouth once daily potassium chloride SA (K-DUR,KLOR-CON) 20 MEQ tablet TAKE 1 TABLET BY MOUTH DAILY 30 tablet 10 08/23/2023 Active Start: 04-24-2013 End: 08-12-2017 Comment on above: Take 1 tablet by jeffry every afternoon. pravastatin sodium 40 mg ora l tablet (20 sources) HMG-CoA Reductase Inhibitor Start: 04-18-2013 End: [...] 2 tablets by mouth before meals. REPAGLINIDE [id number] Lissette Banerjee NP Start: 03-16-2014 End: 06-11-2017 take 1 tablet by mouth twice daily PRANDIN 1 MG TABS One tablet by mouth twice daily REPAGLINIDE [id number] Lissette Banerjee NP rOPINIRole 1 mg oral tablet (20 sources) Nonergot Dopamine Agonist Start: 12-24-2024 End: 01-11-2025 Start: 09-07-2024 End: 11-19-2024 Start: 09-07-2024 End: [...] 18, 2013 12:00am August 12, 2017 3:38pm rosuvastatin calcium 5 mg oral tablet (2 sources) HMG-CoA Reductase Inhibitor Start: 11-26-2013 End: 08-03-2014 take 0.5 tablet by mouth once daily CRESTOR 5 MG TABS 1/2 tablet by mouth daily ROSUVASTATIN CALCIUM [id number] Jean Trujillo MD sacubitril 24 mg / valsartan 26 mg oral tablet (20 sources) Angiotensin 2 Receptor Awilda Start: 05-26-2024 End: 01-11-2025 Start: 05-26-2024 End: 06-03-2024 Sacubitril-Valsartan (Entres to) 24-26 mg tablet Active 1 {tbl} PO TWICE A DAY 60 June 03, 2024 11:10am sennosides, care home 8.6 mg oral tablet (1 source) Start: 12-24-2024 End: 01-11-2025 take 1 tablet by mouth every twelve hours as needed sertraline 100 mg oral tablet (20 sources) Serotonin Reuptake Inhibitor Start: 03-26-2024 [...] once daily. simvastatin 10 mg oral tablet (2 sources) HMG-CoA Reductase Inhibitor Start: 11-27-19 14 End: 12-31-19 25 take 1 tablet by mouth once daily SIMVASTATIN 10 MG TABS One tablet by mouth daily SIMVASTATIN [id number] Jean Trujillo MD SITagliptin 100 mg oral tablet (2 sources) Dipeptidyl Peptidase 4 Inhibitor Start: 05-05-20 13 End: 05-06-20 13 take 1 tablet by mouth once daily JANUVIA 100 MG TABS One tablet by mouth daily SITAGLIPTIN PHOSPHATE [id number] Josephine Knight RN sulfamethoxazole 800 mg / [...] weeks traMADol hydrochloride 50 mg oral tablet (5 sources) Opioid Agonist Start: 01-07-2025 End: 01-11-2025 take 50 mg by mouth every twelve hours as needed Start: 08-21-2021 End: 05-02-2022 take 1 tablet by mouth every four hours Tramadol (Ultram) 50 MG Tablet Discontinued 50 MG PO Q4H 38 7 August 21, 2021 1:00am May 02, 2022 10:48am traZODone hydrochloride 50 mg oral tablet (1 source) Serotonin Reuptake Inhibitor Start: 01-02-2025 End: 01-11-2025 triamcinolone acetonide 0.001 mg/mg topical ointment (20 [...] 1 WEEK OFF *NOT FOR FACE, ARMPITS Vancomycin (18 sources) Glycopeptide Antibacterial Start: 11-25-2024 End: 02-03-2025 Start: 11-25-2024 vitamin b12 1 mg oral capsule (3 sources) Vitamin B12 Start: 05-29-2021 End: 05-02-2022 Cyanocobalamin (Vitamin B-12 ) (Vitamin B-12) 1,000 MCG Capsule Discontinued 500 MCG PO Daily May 29, 2021 1:00am May 02, 2022 10:51am Cyanocobalamin ( VITAMIN B-12 PO) Take by mouth. 0 Active (2 sources) Start: 01-05-2025 End: 01-05-2025 Start: 12-31-2024 End: 12-31-2024 (3 sources) Start: 01-02-2025 End: 01-02-2025 Start: 01-01-2025 End: 01-01-2025 Start: 12-28-2024 End: 12-28-2024 (1 source) Start: 12-24-2024 End: 12-24-2024 take 2000 mg intravenously every twelve hours Problems Active Problems Problem Classification Problem Date Documented Da te Episodic/Chronic Acquired foot deformities (20 sources) Other hammer toe(s) (acquired), left foot; Translations: [Other hammer toe(s) (acquired), left foot] Chronic Acquired foot deformities (20 sources) Other hammer toe(s) (acquired), right foot; Translations: [Other hammer toe(s) (acquired), right foot] Chronic Adjustment disorders (20 sources) Adjustment disorder; Translations: [Unspecified adjustment reaction] Onset: Chronic Administrative/social admission (7 sources) Food insecurity; [...] [Bacteremia] Onset: 5 11-22-2024 Episodic Cardiac dysrhythmias (20 sources) Palpitations; Translations: [Palpitations] 04-29-2021 Episodic Chronic ulcer of skin (2 sources) Non-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; Translations: [Non-pressure chronic ulcer of left heel and midfoot limited to breakdown of skin] Chronic Complication of device; implant or graft (17 sources) Other specified complication of vascular prosthetic [...] Comment on above: 03/12/18 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/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/IS-1 Congestive heart failure; nonhypertensive (20 sources) Congestive heart failure; Translations: [Heart failure with reduced ejection fraction] Onset: 3 05-05-2013 Chronic Coronary atherosclerosis and other heart disease (20 sources) Atherosclerotic heart disease of [place] coronary artery without angina pectoris; Translations: [Coronary [...] 2 05-05-2013 Chronic Fever of unknown origin (20 sources) Fever; Translations: [Fever, unspecified] Onset: 5 11-20-2024 Episodic Genitourinary symptoms and ill-defined conditions (20 sources) Genuine stress incontinence; Translations: [Incontinence] Onset: 9 11-12-2018 Chronic Gout and other crystal arthropathies (20 sources) Idiopathic gout, right ankle and foot; Translations: [Gout] Chronic Headache; including migraine (19 sources) Headache; Translations: [Headache] 03-26-2024 Episodic Hypertension [...] sources) Tinea unguium; Translations: [Candidiasis of vagina] Onset: 5 Episodic Nonspecific chest pain (20 sources) Chest pain, unspecified; Translations: [Chest pain] Onset: 3 05-05-2013 Episodic Nutritional deficiencies (20 sources) Vitamin D deficiency; Translations: [Vitamin D deficiency, unspecified] Onset: 1 08-17-2020 Chronic Open wounds of extremities (2 sources) Unspecified open wound, right foot, initial encounter; Translations: [Unspecified open wound, right foot, initial encounter] Episodic Open wounds of extremities (20 sources) Laceration without foreign body of left elbow, initial encounter; Translations: [Open wound of left great toe] Onset: 2 10-06-2023 Episodic Osteoarthritis (20 sources) Bilateral primary osteoarthritis of knee; Translations: [Arthritis] Chronic Other aftercare (20 sources) care home (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 of insulin; Translations: [care home (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 of insulin] Onset: 0 Episodic Other aftercare (20 sources) Encounter for follow-up examination after completed treatment for conditions other than malignant neoplasm; Translations: [Encntr for f/u exam aft trtmt for cond oth than malig neoplm] Episodic Other aftercare (9 sources) Peripherally inserted central venous catheter in situ; Translations: [Encounter for adjustment and management of vascular access device] 12-20-2024 Episodic Other aftercare (1 source) Encounter for adjustment and management of vascular access device; Translations: [Encounter for adjustment and management of vascular access device] Onset: Episodic Other and ill-defined heart disease (19 sources) Heart disease; Translations: [Heart disease, unspecified] 03-26-2024 Chronic Other and ill-defined heart disease (1 source) Left ventricular systolic dysfunction; Translations: [Other ill-defined heart diseases] 09-03-2013 Chronic Other bone disease and musculoskeletal deformities [...] legs syndrome] Onset: 6 08-17-2020 Chronic Other infections; including parasitic (1 source) Disorder due to infection; Translations: [Unspecified infectious disease] 01-11-2025 Episodic Other infections; including parasitic (1 source) Unspecified infectious disease; Translations: [Unspecified infectious disease] Onset: Episodic Other inflammatory condition of skin (1 source) Intertrigo; Translations: [Erythema intertrigo] 08-30-2023 Episodic Other injuries and conditions due to external causes (2 sources) Injury of upper extremity; Translations: [Unspecified injury of shoulder and upper arm, unspecified arm, initial encounter] Episodic Other injuries and conditions due to external causes (20 sources) Wound hemorrhage; Translations: [Other injury of unspecified body region, initial encounter] 10-06-2023 Episodic Other lower respiratory disease (2 sources) Dyspnea; Translations: [Shortness of breath] Onset: 3 05-05-2013 Episodic Other nervous system disorders (20 sources) Neuropathy; Translations: [Polyneuropathy, unspecified] 10-16-2024 Chronic [...] Onset: 9 08-17-2020 Chronic Pulmonary heart disease (20 sources) Pulmonary hypertension; Translations: [Pulmonary hypertension, unspecified] [...] Onset: 1 08-17-2020 Episodic Residual codes; unclassified (20 sources) Peripheral edema; Translations: [Localized edema] 06-23-2018 Episodic Residual codes; unclassified (4 sources) Monitoring status; Translations: [Presence of other specified devices] 10-30-2023 Episodic Residual codes; unclassified (19 sources) H/O: Disorder; Translations: [Personal history of other specified conditions] 12-20-2024 Episodic Residual codes; unclassified (9 sources) Other specified health status; Translations: [Failure of outpatient treatment] 12-20-2024 Episodic Residual codes; unclassified (1 source) Edema; Translations: [Edema, unspecified] 09-03-2013 Episodic Residual codes; unclassified (2 sources) Personal history of other specified conditions; Translations: [Personal history of other specified conditions] Onset: Episodic Septicemia (except in labor) (20 sources) Sepsis; Translations: [Sepsis, unspecified organism] Onset: 5 11-20-2024 Episodic Shock (20 sources) Shock; Translations: [Shock, unspecified] Onset: 5 11-21-2024 Episodic Spondylosis; intervertebral disc disorders; other back problems (20 sources) Low back pain; Translations: [Low back pain] 11-20-2024 Episodic Thyroid disorders (20 sources) Subclinical hyperthyroidism; Translations: [Thyrotoxicosis, unspecified without thyrotoxic crisis or storm] Onset: Chronic Unclassified (1 source) Long-term drug therapy; [...] Nausea; Translations: [Nausea] Onset: 12-24-2023 12-24-2023 Episodic Other aftercare (2 sources) Wound ; Translations: [Encounter for other specified aftercare] Onset: 12-28-2020 Resolved: 09-06-2021 09-06-2021 Episodic Other aftercare (1 source) care home (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 of aspirin; Translations: [J2EE SOFTWARE ENGINEER (CURRENT) USE OF ASPIRIN] Onset: 04-30-2022 Episodic Other aftercare (2 sources) Other marketing project manager (current) drug therapy; Translations: [OTHER USP (CURRENT) DRUG THERAPY] Onset: 04-30-2022 Episodic Other aftercare (1 source) care home (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 of oral hypoglycemic drugs; Translations: [USP (CURRENT) USE OF ORAL HYPOGLYCEMIC DRUGS] Onset: [...] Onset: 03-07-2022 Episodic Other lower respiratory disease (20 sources) [...] (BMI) 27.0-27.9, adult] Onset: 05-05-2013 03-16-2014 Episodic Unclassified (1 source) Unspecified infectious disease; Translations: [Unspecified infectious disease] Onset: 12-23-2024 Viral infection (20 sources) Anal warts; Translations: [Anogenital (venereal) warts] Onset: 01-24-2012 08-17-2020 Episodic Results Test Name Value Interpretation Reference Range Facility Cardiology Visit Reporton Cardiology Visit Report Normal [facility] Internal Medicine Office Vis iton 02-03-2025 Internal Medicine Office Visit Normal [facility] CARDIAC RHYTHMon 01-11-2025 [facility] CBC AND ELECTRONIC DIFFon Basophils (Bld) [#/Vol] K/uL 0.00 - 0.15 K/uL [facility] Basophils/100 WBC (Bld) 0.5 % [facility] Differential cell count method Nom (Bld) Electronic Differential O [facility] Eosinophils (Bld) [#/Vol] 0.11 10*3/uL 0.00 - 0.42 K/uL [facility] Eosinophils/100 WBC (Bld) 2 % [facility] Erythrocyte distribution width (RBC) [Ratio] 14.5 % 10.8 - 14.9 % [facility] Hematocrit (Bld) [Volume fraction] 27.9 % Low 34.9 - 44.3 % [facility] Hemoglobin (Bld) [Mass/Vol] 8.9 g/dL Low 11.4 - 15.2 g/dL [facility] Immature granulocytes (Bld) [#/Vol] K/uL NINF - 0.08 K/uL [facility] Immature granulocytes/100 WBC (Bld) 0.5 % [facility] Interpretation and review of laboratory results Abnormal [facility] Lymphocytes (Bld) [#/Vol] 1.54 10*3/uL 1.16 - 3.51 K/uL [facility] Lymphocytes/100 WBC (Bld) 27.6 % [facility] MCH (RBC) [Entitic mass] 28.4 pg 25.9 - 33.9 pg [facility] MCHC (RBC) [Mass/Vol] 31.9 g/dL 31.4 - 35.9 g/dL [facility] MCV (RBC) [Entitic vol] 89.1 fL 79.6 - 97.7 fL [facility] Monocytes (Bld) [#/Vol] 0.47 10*3/uL 0.22 - 0.87 K/uL [facility] Monocytes/100 WBC (Bld) 8.4 % [facility] Neutrophils (Bld) [#/Vol] 3.39 10*3/uL 1.64 - 7.28 K/uL [facility] Nucleated RBC/100 WBC (Bld) [Ratio] 0 % [facility] Platelet mean volume (Bld) [Entitic vol] 9.3 fL 8.5 - 12.2 fL [facility] Platelets (Bld) [#/Vol] 248 10*3/uL 150 - 393 K/uL [facility] RBC (Bld) [#/Vol] 3.13 10*6/uL Low [facility] Segmented neutrophils/100 WBC (Bld) 61 % [facility] WBC (Bld) [#/Vol] 5.57 10*3/uL 3.99 - 11. 19 K/uL [facility] Abs Baso Auto < Normal 0.00-0.[address] [facility] Comment on above: Performed By: #### L [id number] ####[facility] (DEFAULT)[address] [place] [address] Basophils/100 WBC (Bld) 0.5 % Normal [facility] Comment on above: Performed By: #### L [id number] ####[facility] (DEFAULT)[address] [place] [address] DIFF STATUS Electronic Differential Normal [facility] Comment on above: Performed By: #### L [id number] ####[facility] (DEFAULT)[address] [place] [address] Eosinophils (Bld) [#/Vol] 0.11 10*3/uL Normal 0.00-0.[address] [facility] Comment on above: Performed By: #### L [id number] ####[facility] (DEFAULT)[address] [place] [address] Eosinophils/100 WBC (Bld) 2.0 % Normal [facility] Comment on above: Performed By: #### L [id number] ####[facility] (DEFAULT)[address] [place] [address] Hematocrit (Bld) [Volume fraction] 27.9 % Low 34.9-44.[address] [facility] Comment on above: Performed By: #### L [id number] ####[facility] (DEFAULT)[address] [place] [address] Hemoglobin (Bld) [Mass/Vol] 8.9 g/dL Low 11.4-15.[address] [facility] Comment on above: Performed By: #### L [id number] ####[facility] (DEFAULT)[address] [facility] [place] [address] Immature Grans % 0.5 % Normal [facility] Comment on above: Performed By: #### L [id number] ####[facility] (DEFAULT)[address] [place] [address] Immature Grans Absolute < Normal <=0.[address] [facility] Comment on above: Performed By: #### L [id number] ####[facility] (DEFAULT)[address] [facility] [place] [address] Lymphocytes (Bld) [#/Vol] 1.54 10*3/uL Normal 1.16-3.[address] [facility] Comment on above: Performed By: #### L [id number] ####[facility] (DEFAULT)[address] [place] [address] Lymphocytes/100 WBC (Bld) 27.6 % Normal [facility] Comment on above: Performed By: #### L [id number] ####[facility] (DEFAULT)[address] [place] [address] MCV (RBC) [Entitic vol] 89.1 fL Normal 79.6-97.[address] [facility] Comment on above: Performed By: #### L [id number] ####[facility] (DEFAULT)[address] [place] [address] Mean Cell Hgb 28.4 pg Normal 25.9-33.[address] [facility] Comment on above: Performed By: #### L [id number] ####[facility] (DEFAULT)[address] [place] [address] Mean Cell Hgb Conc 31.9 g/dL Normal 31.4-35.9 [facility] Comment on above: Performed By: #### L [id number] ####[facility] (DEFAULT)[address] [place] [address] Monocytes (Bld) [#/Vol] 0.47 10*3/uL Normal 0.22-0.[address] [facility] Comment on above: Performed By: #### L [id number] ####[facility] (DEFAULT)[address] [place] [address] Monocytes/100 WBC (Bld) 8.4 % Normal [facility] Comment on above: Performed By: #### L [id number] ####[facility] (DEFAULT)[address] [facility] [place] [address] Nucleated RBC 0.0 /100 WBC Normal <=0.2 [facility] Comment on above: Performed By: #### L [id number] ####[facility] (DEFAULT)[address] [facility] [place] [address] Platelet mean volume (Bld) [Entitic vol] 9.3 fL Normal 8.5-12.[address] [facility] Comment on above: Performed By: #### L [id number] ####[facility] (DEFAULT)[address] [place] [address] Platelets (Bld) [#/Vol] 248 10*3/uL Normal 150-[address] [facility] Comment on above: Performed By: #### L [id number] ####[facility] (DEFAULT)[address] [place] [address] RBC (Bld) [#/Vol] 3.13 10*6/uL Low 3.91-5.[address] [facility] Comment on above: Performed By: #### L [id number] ####[facility] (DEFAULT)[address] [place] [address] RBC Distribution 14.5 % Normal 10.8-14.9 [facility] Comment on above: Performed By: #### L [id number] ####[facility] (DEFAULT)[address] [place] [address] Segs + Bands Auto 61.0 % Normal [facility] Comment on above: Performed By: #### L [id number] ####[facility] (DEFAULT)[address] [place] [address] Segs + Bands,Absolute Auto 3.39 K/uL Normal 1.64-7.[address] [facility] Comment on above: Performed By: #### L [id number] ####[facility] (DEFAULT)[address] [place] [address] WBC (Bld) [#/Vol] 5.57 10*3/uL Normal 3.99-11.[address] [facility] Comment on above: Performed By: #### L [id number] ####[facility] (DEFAULT)[address] [place] [address] CHEM 7 (LYTES,BUN,CREA,GLUC) on 01-11-2025 Anion gap [Moles/Vol] 10 mmol/L 7 - 17 mmol/L [facility] Chloride [Moles/Vol] 104 mmol/L 98 - 10 8 mmol/L [facility] CO2 [Moles/Vol] 25 mmol/L 21 - 31 mmol/L [facility] Creatinine [Mass/Vol] 0.83 mg/dL 0.50 - 1.20 mg/dL [facility] eGFR, CKD-EPI, Female 82 - PINF [facility] Glucose [Mass/Vol] 109 mg/dL 70 - 179 mg/dL [facility] Osmolality Calc [Osmolality] 283 [facility] Potassium [Moles/Vol] 4 mmol/L 3.5 - 5.0 mmol/L [facility] Sodium [Moles/Vol] 135 mmol/L 135 - 145 mmol/L [facility] Urea nitrogen [Mass/Vol] 9 mg/dL 7 - 25 mg/dL [facility] Urea nitrogen/Creatinine [Mass ratio] 11 [facility] Anion gap [Moles/Vol] 10 mmol/L Normal 7-[address] [facility] Comment on above: Performed By: #### C HM7, MGO, HFP, CKB ####[facility] (DEFAULT)[address] [facility] [place] [address] Chloride [Moles/Vol] 104 mmol/L Normal 98-[address] [facility] Comment on above: Performed By: #### C HM7, MGO, HFP, CKB ####[facility] (DEFAULT)[address] [place] [address] CO2 [Moles/Vol] 25 mmol/L Normal 21-31 [facility] Comment on above: Performed By: #### C HM7, MGO, HFP, CKB ####[facility] (DEFAULT)[address] [place] [address] Creatinine [Mass/Vol] 0.83 mg/dL Normal 0.50-1.20 [facility] Comment on above: Performed By: #### C HM7, MGO, HFP, CKB ####[facility] (DEFAULT)[address] [place] [address] GFR/1.73 sq M.predicted among non-blacks MDRD (S/P/Bld) [Vol rate/Area] 82 mL/min/{1.73_m2} Normal >=[address] [facility] Comment on above: Result Comment: Repo rted eGFR is based on the CKD-EPI 2020 equation using creatinine, age, and sex. Performed By: #### C HM7, MGO, HFP, CKB ####[facility] (DEFAULT)[address] [place] [address] Glucose [Mass/Vol] 109 mg/dL Normal Nonfastin -179 mg/dL; Fastin-[address] [facility] Comment on above: Performed By: #### C HM7, MGO, HFP, CKB ####[facility] (DEFAULT)[address] [place] [address] Osmolality [Osmolality] 283 mosm/kg Normal 278-[address] [facility] Comment on above: Performed By: #### C HM7, MGO, HFP, CKB ####[facility] (DEFAULT)[address] [facility] [place] [address] Potassium [Moles/Vol] 4.0 mmol/L Normal 3.5-5.0 [facility] Comment on above: Performed By: #### C HM7, MGO, HFP, CKB ####[facility] (DEFAULT)[address] [place] [address] Sodium [Moles/Vol] 135 mmol/L Normal 135-145 [facility] Comment on above: Performed By: #### C HM7, MGO, HFP, CKB ####[facility] (DEFAULT)[address] [place] [address] Urea nitrogen [Mass/Vol] 9 mg/dL Normal 7-[address] [facility] Comment on above: Performed By: #### C HM7, MGO, HFP, CKB ####[facility] (DEFAULT)[address] [place] [address] Urea nitrogen/Creatinine [Mass ratio] 11 mg/mg Normal [facility] Comment on above: Performed By: #### C HM7, MGO, HFP, CKB ####[facility] (DEFAULT)[address] [place] [address] CKon 01-11-2025 CK [Catalytic activity/Vol] 3577 U/L High 30 - 184 U/L [facility] Interpretation and review of laboratory results Abnormal [facility] CK [Catalytic activity/Vol] 3577 U/L High 30-[address] [facility] Comment on above: Performed By: #### C HM7, MGO, HFP, CKB ####[facility] (DEFAULT)[address] [place] [address] GLUCOSE POCon 01-11-2025 Glucose [Mass/Vol] 225 mg/dL High 70 - 179 mg/dL [facility] Interpretation and review of laboratory results Abnormal [facility] POC Sample Type CAPBL [facility] Glucose [Mass/Vol] 97 mg/dL 70 - 179 mg/dL [facility] POC Sample Type CAPBL [facility] Glucose [Mass/Vol] 105 mg/dL 70 - 179 mg/dL [facility] POC Sample Type VENO [facility] HEPATIC FUNCTION PANELon Albumin [Mass/Vol] 3.3 g/dL Low 3.5 - 5.0 g/dL [facility] ALP [Catalytic activity/Vol] 94 U/L 32 - 126 U/L [facility] ALT [Catalytic activity/Vol] 125 U/L High 9 - 48 U/L [facility] AST [Catalytic activity/Vol] 152 U/L High 10 - 39 U/L [facility] Bilirubin [Mass/Vol] 0.3 mg/dL NINF - 1.5 mg/dL [facility] Bilirubin.direct [Mass/Vol] mg/dL NINF - 0.3 mg/dL [facility] Interpretation and review of laboratory results Abnormal [facility] Protein [Mass/Vol] 6.5 g/dL 6.4 - 8.3 g/dL [facility] Albumin [Mass/Vol] 3.3 g/dL Low 3.5-5.0 [facility] Comment on above: Performed By: #### C HM7, MGO, HFP, CKB ####[facility] (DEFAULT)[address] [place] [address] ALP [Catalytic activity/Vol] 94 U/L Normal 32-[address] [facility] Comment on above: Performed By: #### C HM7, MGO, HFP, CKB ####[facility] (DEFAULT)[address] [place] [address] ALT [Catalytic activity/Vol] 125 U/L High 9-[address] [facility] Comment on above: Performed By: #### C HM7, MGO, HFP, CKB ####[facility] (DEFAULT)[address] [place] [address] AST [Catalytic activity/Vol] 152 U/L High 10-[address] [facility] Comment on above: Performed By: #### C HM7, MGO, HFP, CKB ####[facility] (DEFAULT)[address] [place] [address] Bilirubin [Mass/Vol] 0.3 mg/dL Normal <1.[address] [facility] Comment on above: Performed By: #### C HM7, MGO, HFP, CKB ####[facility] (DEFAULT)[address] [place] [address] Bilirubin Direct < Normal <0.3 [facility] Comment on above: Performed By: #### C HM7, MGO, HFP, CKB ####[facility] (DEFAULT)[address] [place] [address] Protein [Mass/Vol] 6.5 g/dL Normal 6.4-8.3 [facility] Comment on above: Performed By: #### C HM7, MGO, HFP, CKB ####[facility] (DEFAULT)[address] [place] [address] MAGNESIUMon 01-11-2025 Interpretation and review of laboratory results Normal [facility] Magnesium [Mass/Vol] 2 mg/dL 1.6 - 2 .6 mg/dL [facility] Magnesium [Mass/Vol] 2.0 mg/dL Normal 1.6-2.[address] [facility] Comment on above: Performed By: #### C HM7, MGO, HFP, CKB ####[facility] (DEFAULT)[address] [place] [address] No Panel Informationon 01-11 [facility] CALCIUMon 01-10-2025 Calcium [Mass/Vol] 9.2 mg/dL 8.6 - 10. 5 mg/dL [facility] Interpretation and review of laboratory results Normal [facility] Calcium [Mass/Vol] 9.2 mg/dL Normal 8.6-10.5 [facility] Comment on above: Performed By: #### C A, IPB, CHM7, CKB, MGO, HFP ####[facility] (DEFAULT)[address] [place] [address] CBC AND ELECTRONIC DIFFon Basophils (Bld) [#/Vol] K/uL 0.00 - 0.15 K/uL [facility] Basophils/100 WBC (Bld) 0.5 % [facility] Differential cell count method Nom (Bld) Electronic Differential [facility] Eosinophils (Bld) [#/Vol] 0.14 10*3/uL 0.00 - 0.42 K/uL [facility] Eosinophils/100 WBC (Bld) 2.4 % [facility] Erythrocyte distribution width (RBC) [Ratio] 14.2 % 10.8 - 14.9 % [facility] Hematocrit (Bld) [Volume fraction] 29 % Low 34.9 - 44.3 % [facility] Hemoglobin (Bld) [Mass/Vol] 9.1 g/dL Low 11.4 - 15.2 g/dL [facility] Immature granulocytes (Bld) [#/Vol] 0.04 10*3/uL NINF - 0.08 K/uL [facility] Immature granulocytes/100 WBC (Bld) 0.7 % [facility] Interpretation and review of laboratory results Abnormal [facility] Lymphocytes (Bld) [#/Vol] 1.78 10*3/uL 1.16 - 3.51 K/uL [facility] Lymphocytes/100 WBC (Bld) 31 % [facility] MCH (RBC) [Entitic mass] 28.1 pg 25.9 - 33.9 pg [facility] MCHC (RBC) [Mass/Vol] 31.4 g/dL 31.4 - 35.9 g/dL [facility] MCV (RBC) [Entitic vol] 89.5 fL 79.6 - 97.7 fL [facility] Monocytes (Bld) [#/Vol] 0.56 10*3/uL 0.22 - 0.87 K/uL [facility] Monocytes/100 WBC (Bld) 9.8 % [facility] Neutrophils (Bld) [#/Vol] 3.19 10*3/uL 1.64 - 7.28 K/uL [facility] Nucleated RBC/100 WBC (Bld) [Ratio] 0 % NINF [facility] Platelet mean volume (Bld) [Entitic vol] 9.6 fL 8.5 - 12.2 fL [facility] Platelets (Bld) [#/Vol] 257 10*3/uL 150 - 393 K/uL [facility] RBC (Bld) [#/Vol] 3.24 10*6/uL Low [facility] Segmented neutrophils/100 WBC (Bld) 55.6 % [facility] WBC (Bld) [#/Vol] 5.74 10*3/uL 3.99 - 11. 19 K/uL [facility] Abs Baso Auto < Normal 0.00-0.[address] [facility] Comment on above: Performed By: #### L [id number] ####[facility] (DEFAULT)[address] [place] [address] Basophils/100 WBC (Bld) 0.5 % Normal [facility] Comment on above: Performed By: #### L [id number] ####[facility] (DEFAULT)[address] [place] [address] DIFF STATUS Electronic Differential Normal [facility] Comment on above: Performed By: #### L [id number] ####[facility] (DEFAULT)[address] [place] [address] Eosinophils (Bld) [#/Vol] 0.14 10*3/uL Normal 0.00-0.[address] [facility] Comment on above: Performed By: #### L [id number] ####[facility] (DEFAULT)[address] [facility] [place] [address] Eosinophils/100 WBC (Bld) 2.4 % Normal [facility] Comment on above: Performed By: #### L [id number] ####[facility] (DEFAULT)[address] [place] [place] [address] Hematocrit (Bld) [Volume fraction] 29.0 % Low 34.9-44.[address] [facility] Comment on above: Performed By: #### L [id number] ####[facility] (DEFAULT)[address] [place] [address] Hemoglobin (Bld) [Mass/Vol] 9.1 g/dL Low 11.4-15.[address] [facility] Comment on above: Performed By: #### L AB980 ####[facility] (DEFAULT)[address] [place] [address] Immature Grans % 0.7 % Normal [facility] Comment on above: Performed By: #### L AB980 ####[facility] (DEFAULT)[address] [place] [address] Immature Grans Absolute 0.04 K/uL Normal <=0.[address] [facility] Comment on above: Performed By: #### L [id number] ####[facility] (DEFAULT)[address] [place] [address] Lymphocytes (Bld) [#/Vol] 1.78 10*3/uL Normal 1.16-3.[address] [facility] Comment on above: Performed By: #### L AB980 ####[facility] (DEFAULT)[address] [place] [address] Lymphocytes/100 WBC (Bld) 31.0 % Normal [facility] Comment on above: Performed By: #### L [id number] ####[facility] (DEFAULT)[address] [place] [address] MCV (RBC) [Entitic vol] 89.5 fL Normal 79.6-97.[address] [facility] Comment on above: Performed By: #### L [id number] ####[facility] (DEFAULT)[address] [place] [address] Mean Cell Hgb 28.1 pg Normal 25.9-33.[address] [facility] Comment on above: Performed By: #### L AB980 ####[facility] (DEFAULT)[address] [place] [address] Mean Cell Hgb Conc 31.4 g/dL Normal 31.4-35.9 [facility] Comment on above: Performed By: #### L AB980 ####[facility] (DEFAULT)[address] [place] [address] Monocytes (Bld) [#/Vol] 0.56 10*3/uL Normal 0.22-0.[address] [facility] Comment on above: Performed By: #### L AB980 ####[facility] (DEFAULT)[address] [place] [address] Monocytes/100 WBC (Bld) 9.8 % Normal [facility] Comment on above: Performed By: #### L [id number] ####[facility] (DEFAULT)[address] [place] [address] Nucleated RBC 0.0 /100 WBC Normal <=0.2 [facility] Comment on above: Performed By: #### L [id number] ####[facility] (DEFAULT)[address] [place] [address], [place] [address] Platelet mean volume (Bld) [Entitic vol] 9.6 fL Normal 8.5-12.[address] [facility] Comment on above: Performed By: #### L [id number] ####[facility] (DEFAULT)[address] [place] [address] Platelets (Bld) [#/Vol] 257 10*3/uL Normal 150-[address] [facility] Comment on above: Performed By: #### L [id number] ####[facility] (DEFAULT)[address] [place] [address] RBC (Bld) [#/Vol] 3.24 10*6/uL Low 3.91-5.[address] [facility] Comment on above: Performed By: #### L [id number] ####[facility] (DEFAULT)[address] [place] [address] RBC Distribution 14.2 % Normal 10.8-14.9 [facility] Comment on above: Performed By: #### L AB980 ####[facility] (DEFAULT)[address] [place] [address] Segs + Bands Auto 55.6 % Normal [facility] Comment on above: Performed By: #### L AB980 ####[facility] (DEFAULT)[address] [place] [address] Segs + Bands,Absolute Auto 3.19 K/uL Normal 1.64-7.[address] [facility] Comment on above: Performed By: #### L [id number] ####[facility] (DEFAULT)[address] [place] [address] WBC (Bld) [#/Vol] 5.74 10*3/uL Normal 3.99-11.[address] [facility] Comment on above: Performed By: #### L AB980 ####[facility] (DEFAULT)[address] [place] [address] CHEM 6 (LYTES, BUN CREA)on 0 01-10-2025 Anion gap [Moles/Vol] 14 mmol/L 7 - 17 mmol/L [facility] Chloride [Moles/Vol] 108 mmol/L 98 - 10 8 mmol/L [facility] CO2 [Moles/Vol] 21 mmol/L 21 - 31 mmol/L [facility] Creatinine [Mass/Vol] 0.79 mg/dL 0.50 - 1.20 mg/dL [facility] eGFR, CKD-EPI, Female 87 - PINF [facility] Potassium [Moles/Vol] 4.4 mmol/L 3.5 - 5.0 mmol/L [facility] Sodium [Moles/Vol] 139 mmol/L 135 - 145 mmol/L [facility] Urea nitrogen [Mass/Vol] 7 mg/dL 7 - 25 mg/dL [facility] Urea nitrogen/Creatinine [Mass ratio] 9 mg/mg [facility] Anion gap [Moles/Vol] 14 mmol/L Normal 7-17 [facility] Comment on above: Performed By: #### Tremaine REYES, CHM6 ####[facility] (DEFAULT)[address] [place] [address] Chloride [Moles/Vol] 108 mmol/L Normal 98-[address] [facility] Comment on above: Performed By: #### Tremaine REYES, CHM6 ####[facility] (DEFAULT)[address] [place] [address] CO2 [Moles/Vol] 21 mmol/L Normal 21-31 [facility] Comment on above: Performed By: #### Tremaine REYES, CHM6 ####[facility] (DEFAULT)[address] [place] [address] Creatinine [Mass/Vol] 0.79 mg/dL Normal 0.50-1.20 [facility] Comment on above: Performed By: #### Tremaine REYES, CHM6 ####[facility] (DEFAULT)[address] [place] [address] GFR/1.73 sq M.predicted among non-blacks MDRD (S/P/Bld) [Vol rate/Area] 87 mL/min/{1.73_m2} Normal >=[address] [facility] Comment on above: Result Comment: Repo rted eGFR is based on the CKD-EPI 2020 equation using creatinine, age, and sex. Performed By: #### Tremaine REYES, CHM6 ####[facility] (DEFAULT)[address] [facility] [place] [address] Potassium [Moles/Vol] 4.4 mmol/L Normal 3.5-5.0 [facility] Comment on above: Performed By: #### Tremaine REYES, CHM6 ####[facility] (DEFAULT)[address] [place] [address] Sodium [Moles/Vol] 139 mmol/L Normal 135-145 [facility] Comment on above: Performed By: #### Tremaine REYES, CHM6 ####[facility] (DEFAULT)[address] [place] [address] Urea nitrogen [Mass/Vol] 7 mg/dL Normal 7-[address] [facility] Comment on above: Performed By: #### Tremaine REYES, CHM6 ####[facility] (DEFAULT)[address] [place] [address] Urea nitrogen/Creatinine [Mass ratio] 9 mg/mg Normal [facility] Comment on above: Performed By: #### Tremaine REYES, CHM6 ####[facility] (DEFAULT)[address] [place] [address] CHEM 7 (LYTES,BUN,CREA,GLUC) Ordered By: Tricia Plummer on 01-10-2025 Anion gap [Moles/Vol] 14 mmol/L 7 - 17 mmol/L [facility] Chloride [Moles/Vol] 107 mmol/L 98 - 10 8 mmol/L [facility] CO2 [Moles/Vol] 24 mmol/L 21 - 31 mmol/L [facility] Creatinine [Mass/Vol] 0.73 mg/dL 0.50 - 1.20 mg/dL [facility] eGFR, CKD-EPI, Female - PINF [facility] Glucose [Mass/Vol] 98 mg/dL 70 - 179 mg/dL [facility] Osmolality Calc [Osmolality] 292 [facility] Potassium [Moles/Vol] 3.7 mmol/L 3.5 - 5.0 mmol/L [facility] Sodium [Moles/Vol] 141 mmol/L 135 - 145 mmol/L [facility] Urea nitrogen [Mass/Vol] 8 mg/dL 7 - 25 mg/dL [facility] Urea nitrogen/Creatinine [Mass ratio] 11 mg/mg [facility] CHEM 7 (LYTES,BUN,CREA,GLUC) on 01-10-2025 Anion gap [Moles/Vol] 14 mmol/L Normal 7-17 [facility] Comment on above: Performed By: #### C A, IPB, CHM7, CKB, MGO, HFP ####[facility] (DEFAULT)[address] [place] [address] Chloride [Moles/Vol] 107 mmol/L Normal 98-[address] [facility] Comment on above: Performed By: #### C A, IPB, CHM7, CKB, MGO, HFP ####[facility] (DEFAULT)[address] [place] [address] CO2 [Moles/Vol] 24 mmol/L Normal 21-31 [facility] Comment on above: Performed By: #### C A, IPB, CHM7, CKB, MGO, HFP ####[facility] (DEFAULT)[address] [place] [address] Creatinine [Mass/Vol] 0.73 mg/dL Normal 0.50-1.20 [facility] Comment on above: Performed By: #### C A, IPB, CHM7, CKB, MGO, HFP ####[facility] (DEFAULT)[address] [place] [address] eGFR, CKD-EPI, Female > Normal >=60 [facility] Comment on above: Result Comment: Repo rted eGFR is based on the CKD-EPI 2020 equation using creatinine, age, and sex. Performed By: #### C A, IPB, CHM7, CKB, MGO, HFP ####[facility] (DEFAULT)[address] [place] [address] Glucose [Mass/Vol] 98 mg/dL Normal Nonfastin -179 mg/dL; Fastin-[address] [facility] Comment on above: Performed By: #### C A, IPB, CHM7, CKB, MGO, HFP ####[facility] (DEFAULT)[address] [facility] [place] [address] Osmolality [Osmolality] 292 mosm/kg Normal 278-[address] [facility] Comment on above: Performed By: #### C A, IPB, CHM7, CKB, MGO, HFP ####[facility] (DEFAULT)[address] [facility] [place] [address] Potassium [Moles/Vol] 3.7 mmol/L Normal 3.5-5.0 [facility] Comment on above: Performed By: #### C A, IPB, CHM7, CKB, MGO, HFP ####[facility] (DEFAULT)[address] [place] [address] Sodium [Moles/Vol] 141 mmol/L Normal 135-145 [facility] Comment on above: Performed By: #### C A, IPB, CHM7, CKB, MGO, HFP ####[facility] (DEFAULT)[address] [place] [address] Urea nitrogen [Mass/Vol] 8 mg/dL Normal 7-[address] [facility] Comment on above: Performed By: #### C A, IPB, CHM7, CKB, MGO, HFP ####[facility] (DEFAULT)[address] [place] [address] Urea nitrogen/Creatinine [Mass ratio] 11 mg/mg Normal [facility] Comment on above: Performed By: #### C A, IPB, CHM7, CKB, MGO, HFP ####[facility] (DEFAULT)[address] [place] [address] CKOrdered By: Nayla Lee on 01-10-2025 CK [Catalytic activity/Vol] 5373 U/L Critically high 30 - 184 U/L [facility] Interpretation and review of laboratory results Abnormal [facility] CKon 01-10-2025 CK [Catalytic activity/Vol] 5373 U/L Critically high 30-[address] [facility] Comment on above: Performed By: #### C KB, CHM6 ####[facility] (DEFAULT)[address] [place] [address] CK [Catalytic activity/Vol] [address] U/L Critically high 30 - 184 U/L [facility] Interpretation and review of laboratory results Abnormal [facility] CK [Catalytic activity/Vol] 37[address] U/L Critically high 30-[address] [facility] Comment on above: Performed By: #### C A, IPB, CHM7, CKB, MGO, HFP ####[facility] (DEFAULT)[address] [place] [address] GLUCOSE POCon 01-10-2025 Glucose [Mass/Vol] 141 mg/dL 70 - 179 mg/dL [facility] POC Sample Type CAPBL [facility] Glucose [Mass/Vol] 175 mg/dL 70 - 179 mg/dL [facility] POC Sample Type [facility] Glucose [Mass/Vol] 145 mg/dL 70 - 179 mg/dL [facility] POC Sample Type CAPBL [facility] Glucose [Mass/Vol] 99 mg/dL 70 - 179 mg/dL [facility] POC Sample Type VENO [facility] HEPATIC FUNCTION PANELon Albumin [Mass/Vol] 3.5 g/dL 3.5 - 5.0 g/dL [facility] ALP [Catalytic activity/Vol] 97 U/L 32 - 126 U/L [facility] ALT [Catalytic activity/Vol] 147 U/L High 9 - 48 U/L [facility] AST [Catalytic activity/Vol] 257 U/L High 10 - 39 U/L [facility] Bilirubin [Mass/Vol] 0.3 mg/dL NINF - 1.5 mg/dL [facility] Bilirubin.direct [Mass/Vol] mg/dL NINF - 0.3 mg/dL [facility] Interpretation and review of laboratory results Abnormal [facility] Protein [Mass/Vol] 6.4 g/dL 6.4 - 8.3 g/dL [facility] Albumin [Mass/Vol] 3.5 g/dL Normal 3.5-5.0 [facility] Comment on above: Performed By: #### C A, IPB, CHM7, CKB, MGO, HFP ####[facility] (DEFAULT)[address] [place] [address] ALP [Catalytic activity/Vol] 97 U/L Normal 32-[address] [facility] Comment on above: Performed By: #### C A, IPB, CHM7, CKB, MGO, HFP ####[facility] (DEFAULT)[address] [place] [address] ALT [Catalytic activity/Vol] 147 U/L High 9-[address] [facility] Comment on above: Performed By: #### C A, IPB, CHM7, CKB, MGO, HFP ####[facility] (DEFAULT)[address] [place] [address] AST [Catalytic activity/Vol] 257 U/L High 10-[address] [facility] Comment on above: Performed By: #### C A, IPB, CHM7, CKB, MGO, HFP ####[facility] (DEFAULT)[address] [place] [address] Bilirubin [Mass/Vol] 0.3 mg/dL Normal <1.[address] [facility] Comment on above: Performed By: #### C A, IPB, CHM7, CKB, MGO, HFP ####[facility] (DEFAULT)[address] [place] [address] Bilirubin Direct < Normal <0.3 [facility] Comment on above: Performed By: #### C A, IPB, CHM7, CKB, MGO, HFP ####[facility] (DEFAULT)[address] [place] [address] Protein [Mass/Vol] 6.4 g/dL Normal 6.4-8.3 [facility] Comment on above: Performed By: #### C A, IPB, CHM7, CKB, MGO, HFP ####[facility] (DEFAULT)[address] [place] [address] MAGNESIUMon 01-10-2025 Magnesium [Mass/Vol] 1.9 mg/dL 1.6 - 2 .6 mg/dL [facility] Magnesium [Mass/Vol] 1.9 mg/dL Normal 1.6-2.[address] [facility] Comment on above: Performed By: #### C A, IPB, CHM7, CKB, MGO, HFP ####[facility] (DEFAULT)[address] [place] [address] MYOGLOBIN, URINEon Interpretation and review of laboratory results Abnormal [facility] Myoglobin (U) [Mass/Vol] 1384 High [facility] No Panel Informationon 01-10 Interpretation and review of laboratory results Normal [facility] PHOSPHATE, INORGANICon 01-10 Phosphate [Mass/Vol] 3.7 mg/dL 2.2 - 4 .6 mg/dL [facility] Phosphorous 3.7 mg/dL Normal 2.2-4.[address] [facility] Comment on above: Performed By: #### C A, IPB, CHM7, CKB, MGO, HFP ####[facility] (DEFAULT)[address] [place] [address] Bacteria identified Cx Nom ( Bld)on 01-09-2025 Bacteria identified Cx Nom (Unsp spec) NO GROWTH DAY 5 OF 5 [facility] Bacteria identified Cx Nom (Unsp spec) NO GROWTH DAY 5 OF 5 [facility] CBC AND ELECTRONIC DIFFon Basophils (Bld) [#/Vol] 0.04 10*3/uL 0.00 - 0.15 K/uL [facility] Basophils/100 WBC (Bld) 0.6 % [facility] Differential cell count method Nom (Bld) Electronic Differential [facility] Eosinophils (Bld) [#/Vol] 0.19 10*3/uL 0.00 - 0.42 K/uL [facility] Eosinophils/100 WBC (Bld) 3 % [facility] Erythrocyte distribution width (RBC) [Ratio] 14.2 % 10.8 - 14.9 % [facility] Hematocrit (Bld) [Volume fraction] 30.5 % Low 34.9 - 44.3 % [facility] Hemoglobin (Bld) [Mass/Vol] 9.5 g/dL Low 11.4 - 15.2 g/dL [facility] Immature granulocytes (Bld) [#/Vol] 0.04 10*3/uL NINF - 0.08 K/uL [facility] Immature granulocytes/100 WBC (Bld) 0.6 % [facility] Interpretation and review of laboratory results Abnormal [facility] Lymphocytes (Bld) [#/Vol] 1.71 10*3/uL 1.16 - 3.51 K/uL [facility] Lymphocytes/100 WBC (Bld) 26.7 % [facility] MCH (RBC) [Entitic mass] 27.8 pg 25.9 - 33.9 pg [facility] MCHC (RBC) [Mass/Vol] 31.1 g/dL Low 31.4 - 35.9 g/dL [facility] MCV (RBC) [Entitic vol] 89.2 fL 79.6 - 97.7 fL [facility] Monocytes (Bld) [#/Vol] 0.55 10*3/uL 0.22 - 0.87 K/uL [facility] Monocytes/100 WBC (Bld) 8.6 % [facility] Neutrophils (Bld) [#/Vol] 3.88 10*3/uL 1.64 - 7.28 K/uL [facility] Nucleated RBC/100 WBC (Bld) [Ratio] 0 % NINF [facility] Platelet mean volume (Bld) [Entitic vol] 9.3 fL 8.5 - 12.2 fL [facility] Platelets (Bld) [#/Vol] 275 10*3/uL 150 - 393 K/uL [facility] RBC (Bld) [#/Vol] 3.42 10*6/uL Low [facility] Segmented neutrophils/100 WBC (Bld) 60.5 % [facility] WBC (Bld) [#/Vol] 6.41 10*3/uL 3.99 - 11. 19 K/uL [facility] Basophils (Bld) [#/Vol] 0.04 10*3/uL Normal 0.00-0.[address] [facility] Comment on above: Performed By: #### L [id number] ####[facility] (DEFAULT)[address] [place] [address] Basophils/100 WBC (Bld) 0.6 % Normal [facility] Comment on above: Performed By: #### L [id number] ####[facility] (DEFAULT)[address] [place], [place] [address], [place] [address] DIFF STATUS Electronic Differential Normal [facility] Comment on above: Performed By: #### L [id number] ####[facility] (DEFAULT)[address] [place] [address], [place] [address] Eosinophils (Bld) [#/Vol] 0.19 10*3/uL Normal 0.00-0.[address] [facility] Comment on above: Performed By: #### L [id number] ####[facility] (DEFAULT)[address] [place] [address], [place] [address] Eosinophils/100 WBC (Bld) 3.0 % Normal [facility] Comment on above: Performed By: #### L [id number] ####[facility] (DEFAULT)[address] [place] [address], [place] [address] Hematocrit (Bld) [Volume fraction] 30.5 % Low 34.9-44.[address] [facility] Comment on above: Performed By: #### L [id number] ####[facility] (DEFAULT)[address] [place] [address], [place] [address] Hemoglobin (Bld) [Mass/Vol] 9.5 g/dL Low 11.4-15.[address] [facility] Comment on above: Performed By: #### L [id number] ####[facility] (DEFAULT)[address] [place] [address], [place] [address] Immature Grans % 0.6 % Normal [facility] Comment on above: Performed By: #### L [id number] ####[facility] (DEFAULT)[address] [place] [address], [place] [address] Immature Grans Absolute 0.04 K/uL Normal <=0.[address] [facility] Comment on above: Performed By: #### L [id number] ####[facility] (DEFAULT)[address] [place] [address] Lymphocytes (Bld) [#/Vol] 1.71 10*3/uL Normal 1.16-3.[address] [facility] Comment on above: Performed By: #### L [id number] ####[facility] (DEFAULT)[address] [facility] [place] [address] Lymphocytes/100 WBC (Bld) 26.7 % Normal [facility] Comment on above: Performed By: #### L [id number] ####[facility] (DEFAULT)[address] [place] [address] MCV (RBC) [Entitic vol] 89.2 fL Normal 79.6-97.[address] [facility] Comment on above: Performed By: #### L [id number] ####[facility] (DEFAULT)[address] [place] [address] Mean Cell Hgb 27.8 pg Normal 25.9-33.[address] [facility] Comment on above: Performed By: #### L [id number] ####[facility] (DEFAULT)[address] [place] [address] Mean Cell Hgb Conc 31.1 g/dL Low 31.4-35.9 [facility] Comment on above: Performed By: #### L [id number] ####[facility] (DEFAULT)[address] [place] [address] Monocytes (Bld) [#/Vol] 0.55 10*3/uL Normal 0.22-0.[address] [facility] Comment on above: Performed By: #### L [id number] ####[facility] (DEFAULT)[address] [place] [address] Monocytes/100 WBC (Bld) 8.6 % Normal [facility] Comment on above: Performed By: #### L [id number] ####[facility] (DEFAULT)[address] [place] [address] Nucleated RBC 0.0 /100 WBC Normal <=0.2 [facility] Comment on above: Performed By: #### L [id number] ####[facility] (DEFAULT)[address] [place] [address] Platelet mean volume (Bld) [Entitic vol] 9.3 fL Normal 8.5-12.[address] [facility] Comment on above: Performed By: #### L [id number] ####[facility] (DEFAULT)[address] [place] [address] Platelets (Bld) [#/Vol] 275 10*3/uL Normal 150-[address] [facility] Comment on above: Performed By: #### L [id number] ####[facility] (DEFAULT)[address] [place] [address] RBC (Bld) [#/Vol] 3.42 10*6/uL Low 3.91-5.[address] [facility] Comment on above: Performed By: #### L [id number] ####[facility] (DEFAULT)[address] [place] [address] RBC Distribution 14.2 % Normal 10.8-14.9 [facility] Comment on above: Performed By: #### L [id number] ####[facility] (DEFAULT)[address] [place] [address] Segs + Bands Auto 60.5 % Normal [facility] Comment on above: Performed By: #### L [id number] ####[facility] (DEFAULT)[address] [place] [address] Segs + Bands,Absolute Auto 3.88 K/uL Normal 1.64-7.[address] [facility] Comment on above: Performed By: #### L [id number] ####[facility] (DEFAULT)[address] [place] [address] WBC (Bld) [#/Vol] 6.41 10*3/uL Normal 3.99-11.[address] [facility] Comment on above: Performed By: #### L [id number] ####[facility] (DEFAULT)[address] [place] [address] CHEM 6 (LYTES, BUN CREA)on 0 01-09-2025 Anion gap [Moles/Vol] 12 mmol/L 7 - 17 mmol/L [facility] Chloride [Moles/Vol] 104 mmol/L 98 - 10 8 mmol/L [facility] CO2 [Moles/Vol] 23 mmol/L 21 - 31 mmol/L [facility] Creatinine [Mass/Vol] 0.79 mg/dL 0.50 - 1.20 mg/dL [facility] eGFR, CKD-EPI, Female 87 - PINF [facility] Potassium [Moles/Vol] 4.3 mmol/L 3.5 - 5.0 mmol/L [facility] Sodium [Moles/Vol] 135 mmol/L 135 - 145 mmol/L [facility] Urea nitrogen [Mass/Vol] 9 mg/dL 7 - 25 mg/dL [facility] Urea nitrogen/Creatinine [Mass ratio] 11 mg[facility] Anion gap [Moles/Vol] 12 mmol/L Normal 7-[address] [facility] Comment on above: Performed By: #### C HM6, CKB ####[facility] (DEFAULT)[address] [place] [address] Chloride [Moles/Vol] 104 mmol/L Normal 98-[address] [facility] Comment on above: Performed By: #### C HM6, CKB ####[facility] (DEFAULT)[address] [place] [address] CO2 [Moles/Vol] 23 mmol/L Normal 21-31 [facility] Comment on above: Performed By: #### C HM6, CKB ####[facility] (DEFAULT)[address] [place] [address] Creatinine [Mass/Vol] 0.79 mg/dL Normal 0.50-1.20 [facility] Comment on above: Performed By: #### Tremaine PENN, CKB ####[facility] (DEFAULT)[address] [facility] [place] [address] GFR/1.73 sq M.predicted among non-blacks MDRD (S/P/Bld) [Vol rate/Area] 87 mL/min/{1.73_m2} Normal >=[address] [facility] Comment on above: Result Comment: Repo rted eGFR is based on the CKD-EPI 2020 equation using creatinine, age, and sex. Performed By: #### Tremaine PENN, CKB ####[facility] (DEFAULT)[address] [facility] [place] [address] Potassium [Moles/Vol] 4.3 mmol/L Normal 3.5-5.0 [facility] Comment on above: Performed By: #### Tremaine PENN, CKB ####[facility] (DEFAULT)[address] [place] [address] Sodium [Moles/Vol] 135 mmol/L Normal 135-145 [facility] Comment on above: Performed By: #### Tremaine CRISTOBAL6, CKB ####[facility] (DEFAULT)[address] [facility] [place] [address] Urea nitrogen [Mass/Vol] 9 mg/dL Normal 7-[address] [facility] Comment on above: Performed By: #### Tremaine CRISTOBAL6, CKB ####[facility] (DEFAULT)[address] [place] [address] Urea nitrogen/Creatinine [Mass ratio] 11 mg/mg Normal [facility] Comment on above: Performed By: #### Tremaine CRISTOBAL6, CKB ####[facility] (DEFAULT)[address] [place] [address] CHEM 7 (LYTES,BUN,CREA,GLUC) on 01-09-2025 Anion gap [Moles/Vol] 13 mmol/L 7 - 17 mmol/L [facility] Chloride [Moles/Vol] 107 mmol/L 98 - 10 8 mmol/L [facility] CO2 [Moles/Vol] 24 mmol/L 21 - 31 mmol/L [facility] Creatinine [Mass/Vol] 0.72 mg/dL 0.50 - 1.20 mg/dL [facility] eGFR, CKD-EPI, Female - PINF [facility] Glucose [Mass/Vol] 101 mg/dL 70 - 179 mg/dL [facility] Osmolality Calc [Osmolality] 291 [facility] Potassium [Moles/Vol] 4.2 mmol/L 3.5 - 5.0 mmol/L [facility] Sodium [Moles/Vol] 140 mmol/L 135 - 145 mmol/L [facility] Urea nitrogen [Mass/Vol] 7 mg/dL 7 - 25 mg/dL [facility] Urea nitrogen/Creatinine [Mass ratio] 10 mg/mg [facility] Anion gap [Moles/Vol] 13 mmol/L Normal 7-17 [facility] Comment on above: Performed By: #### SHAWNA CAMPOS HFP, CHM7 ####[facility] (DEFAULT)[address] [place] [address] Chloride [Moles/Vol] 107 mmol/L Normal 98-[address] [facility] Comment on above: Performed By: #### SHAWNA CAMPOS HFP, CHM7 ####[facility] (DEFAULT)[address] [place] [address] CO2 [Moles/Vol] 24 mmol/L Normal 21-31 [facility] Comment on above: Performed By: #### SHAWNA CAMPOS HFP, CHM7 ####[facility] (DEFAULT)[address] [place] [address] Creatinine [Mass/Vol] 0.72 mg/dL Normal 0.50-1.20 [facility] Comment on above: Performed By: #### C KB, MGO, HFP, CHM7 ####[facility] (DEFAULT)[address] [place] [address] eGFR, CKD-EPI, Female > Normal >=60 [facility] Comment on above: Result Comment: Repo rted eGFR is based on the CKD-EPI 2020 equation using creatinine, age, and sex. Performed By: #### Tremaine REYES, SHAWNA, HFP, CHM7 ####[facility] (DEFAULT)[address] [place] [address] Glucose [Mass/Vol] 101 mg/dL Normal Nonfastin -179 mg/dL; Fastin-[address] [facility] Comment on above: Performed By: #### Tremaine REYES, SHAWNA, HFP, CHM7 ####[facility] (DEFAULT)[address] [place] [address] Osmolality [Osmolality] 291 mosm/kg Normal 278-[address] [facility] Comment on above: Performed By: #### Tremaine REYES, SHAWNA, HFP, CHM7 ####[facility] (DEFAULT)[address] [place] [address] Potassium [Moles/Vol] 4.2 mmol/L Normal 3.5-5.0 [facility] Comment on above: Performed By: #### Tremaine REYES, O, HFP, CHM7 ####[facility] (DEFAULT)[address] [place] [address] Sodium [Moles/Vol] 140 mmol/L Normal 135-145 [facility] Comment on above: Performed By: #### Tremaine REYES, MGJose, HFP, CHM7 ####[facility] (DEFAULT)[address] [place] [address] Urea nitrogen [Mass/Vol] 7 mg/dL Normal 7-[address] [facility] Comment on above: Performed By: #### Tremaine REYES, MGO, HFP, CHM7 ####[facility] (DEFAULT)[address] [place] [address] Urea nitrogen/Creatinine [Mass ratio] 10 mg/mg Normal [facility] Comment on above: Performed By: #### C AMY, MGO, HFP, CHM7 ####[facility] (DEFAULT)[address] [place] [address] CKOrdered By: Oscar Kwok on 01-09-2025 CK [Catalytic activity/Vol] 48725 U/L Critically high 30 - 184 U/L [facility] Interpretation and review of laboratory results Abnormal [facility] CKon 01-09-2025 CK [Catalytic activity/Vol] 39663 U/L Critically high 30-[address] [facility] Comment on above: Performed By: #### C HM6, CKB ####[facility] (DEFAULT)[address] [place] [address] CK [Catalytic activity/Vol] 84914 U/L Critically high 30-[address] [facility] Comment on above: Performed By: #### C AMY, MGO, HFP, CHM7 ####[facility] (DEFAULT)[address] [place] [address] CKOrdered By: Tracey east on 01-09-2025 CK [Catalytic activity/Vol] 18349 U/L Critically high 30 - 184 U/L [facility] Interpretation and review of laboratory results Abnormal [facility] GLUCOSE POCon 01-09-2025 Glucose [Mass/Vol] 206 mg/dL High 70 - 179 mg/dL [facility] Interpretation and review of laboratory results Abnormal [facility] POC Sample Type CAPBL [facility] Glucose [Mass/Vol] 110 mg/dL 70 - 179 mg/dL [facility] Glucose [Mass/Vol] 72 mg/dL 70 - 179 mg/dL [facility] Glucose [Mass/Vol] 186 mg/dL High 70 - 179 mg/dL [facility] Interpretation and review of laboratory results Abnormal [facility] POC Sample Type CAPBL [facility] Glucose [Mass/Vol] 130 mg/dL 70 - 179 mg/dL [facility] POC Sample Type CAPBL [facility] Glucose [Mass/Vol] 109 mg/dL 70 - 179 mg/dL [facility] POC Sample Type VENO [facility] HEPATIC FUNCTION PANELon Albumin [Mass/Vol] 3.6 g/dL 3.5 - 5.0 g/dL [facility] ALP [Catalytic activity/Vol] 111 U/L 32 - 126 U/L [facility] ALT [Catalytic activity/Vol] 146 U/L High 9 - 48 U/L [facility] AST [Catalytic activity/Vol] 349 U/L High 10 - 39 U/L [facility] Bilirubin [Mass/Vol] 0.3 mg/dL NINF - 1.5 mg/dL [facility] Bilirubin.direct [Mass/Vol] mg/dL NINF - 0.3 mg/dL [facility] Interpretation and review of laboratory results Abnormal [facility] Protein [Mass/Vol] 7 g/dL 6.4 - 8.3 g/dL [facility] Albumin [Mass/Vol] 3.6 g/dL Normal 3.5-5.0 [facility] Comment on above: Performed By: #### C AMY, MGO, HFP, CHM7 ####[facility] (DEFAULT)[address] [place] [address] ALP [Catalytic activity/Vol] 111 U/L Normal 32-[address] [facility] Comment on above: Performed By: #### Tremaine REYES, MGO, HFP, CHM7 ####[facility] (DEFAULT)[address] [place] [address] ALT [Catalytic activity/Vol] 146 U/L High 9-[address] [facility] Comment on above: Performed By: #### Tremaine REYES, MGO, HFP, CHM7 ####[facility] (DEFAULT)[address] [place] [address] AST [Catalytic activity/Vol] 349 U/L High 10-[address] [facility] Comment on above: Performed By: #### Tremaine REYES, MGO, HFP, CHM7 ####[facility] (DEFAULT)[address] [place] [address] Bilirubin [Mass/Vol] 0.3 mg/dL Normal <1.[address] [facility] Comment on above: Performed By: #### Tremaine REYES, MGO, HFP, CHM7 ####[facility] (DEFAULT)[address] [place] [address] Bilirubin Direct < Normal <0.3 [facility] Comment on above: Performed By: #### Tremaine REYES, MGO, HFP, CHM7 ####[facility] (DEFAULT)[address] [place] [address] Protein [Mass/Vol] 7.0 g/dL Normal 6.4-8.3 [facility] Comment on above: Performed By: #### Tremaine KB, MGO, HFP, CHM7 ####[facility] (DEFAULT)[address] [place] [address] MAGNESIUMon 01-09-2025 Interpretation and review of laboratory results Normal [facility] Magnesium [Mass/Vol] 2.1 mg/dL 1.6 - 2 .6 mg/dL [facility] Magnesium [Mass/Vol] 2.1 mg/dL Normal 1.6-2.[address] [facility] Comment on above: Performed By: #### C KB, MGO, HFP, CHM7 ####[facility] (DEFAULT)[address] [place] [address] No Panel Informationon 01-09 POC Sample Type CAPBL [facility] Bacteria identified Cx Nom ( Bld)on 01-08-2025 Bacteria identified Cx Nom (Unsp spec) NO GROWTH DAY 5 OF 5 [facility] CBC AND ELECTRONIC DIFFon Basophils (Bld) [#/Vol] 0.04 10*3/uL 0.00 - 0.15 K/uL [facility] Basophils/100 WBC (Bld) 0.6 % [facility] Differential cell count method Nom (Bld) Electronic Differential O [facility] Eosinophils (Bld) [#/Vol] 0.17 10*3/uL 0.00 - 0.42 K/uL [facility] Eosinophils/100 WBC (Bld) 2.5 % [facility] Erythrocyte distribution width (RBC) [Ratio] 14.2 % 10.8 - 14.9 % [facility] Hematocrit (Bld) [Volume fraction] 28.7 % Low 34.9 - 44.3 % [facility] Hemoglobin (Bld) [Mass/Vol] 9.2 g/dL Low 11.4 - 15.2 g/dL [facility] Immature granulocytes (Bld) [#/Vol] K/uL NINF - 0.08 K/uL [facility] Immature granulocytes/100 WBC (Bld) 0.4 % [facility] Interpretation and review of laboratory results Abnormal [facility] Lymphocytes (Bld) [#/Vol] 1.58 10*3/uL 1.16 - 3.51 K/uL [facility] Lymphocytes/100 WBC (Bld) 23.5 % [facility] MCH (RBC) [Entitic mass] 28.3 pg 25.9 - 33.9 pg [facility] MCHC (RBC) [Mass/Vol] 32.1 g/dL 31.4 - 35.9 g/dL [facility] MCV (RBC) [Entitic vol] 88.3 fL 79.6 - 97.7 fL [facility] Monocytes (Bld) [#/Vol] 0.6 10*3/uL 0.22 - 0.87 K/uL [facility] Monocytes/100 WBC (Bld) 8.9 % [facility] Neutrophils (Bld) [#/Vol] 4.29 10*3/uL 1.64 - 7.28 K/uL [facility] Nucleated RBC/100 WBC (Bld) [Ratio] 0 % NINF [facility] Platelet mean volume (Bld) [Entitic vol] 9.8 fL 8.5 - 12.2 fL [facility] Platelets (Bld) [#/Vol] 285 10*3/uL 150 - 393 K/uL [facility] RBC (Bld) [#/Vol] 3.25 10*6/uL Low [facility] Segmented neutrophils/100 WBC (Bld) 64.1 % [facility] WBC (Bld) [#/Vol] 6.71 10*3/uL 3.99 - 11. 19 K/uL [facility] Basophils (Bld) [#/Vol] 0.04 10*3/uL Normal 0.00-0.[address] [facility] Comment on above: Performed By: #### L [id number] ####[facility] (DEFAULT)[address] [place] [address] Basophils/100 WBC (Bld) 0.6 % Normal [facility] Comment on above: Performed By: #### L [id number] ####[facility] (DEFAULT)[address] [place] [address] DIFF STATUS Electronic Differential Normal [facility] Comment on above: Performed By: #### L AB980 ####[facility] (DEFAULT)[address] [place] [address] Eosinophils (Bld) [#/Vol] 0.17 10*3/uL Normal 0.00-0.[address] [facility] Comment on above: Performed By: #### L [id number] ####[facility] (DEFAULT)[address] [place] [address] Eosinophils/100 WBC (Bld) 2.5 % Normal [facility] Comment on above: Performed By: #### L AB980 ####[facility] (DEFAULT)[address] [place] [address], [place] [address] Hematocrit (Bld) [Volume fraction] 28.7 % Low 34.9-44.[address] [facility] Comment on above: Performed By: #### L AB980 ####[facility] (DEFAULT)[address] [place] [address] Hemoglobin (Bld) [Mass/Vol] 9.2 g/dL Low 11.4-15.[address] [facility] Comment on above: Performed By: #### L AB980 ####[facility] (DEFAULT)[address] [place] [address], [place] [address] Immature Grans % 0.4 % Normal [facility] Comment on above: Performed By: #### L [id number] ####[facility] (DEFAULT)[address] [place] [address] Immature Grans Absolute < Normal <=0.[address] [facility] Comment on above: Performed By: #### L [id number] ####[facility] (DEFAULT)[address] [place] [address] Lymphocytes (Bld) [#/Vol] 1.58 10*3/uL Normal 1.16-3.[address] [facility] Comment on above: Performed By: #### L AB980 ####[facility] (DEFAULT)[address] [place] [address] Lymphocytes/100 WBC (Bld) 23.5 % Normal [facility] Comment on above: Performed By: #### L AB980 ####[facility] (DEFAULT)[address] [place] [address] MCV (RBC) [Entitic vol] 88.3 fL Normal 79.6-97.[address] [facility] Comment on above: Performed By: #### L AB980 ####[facility] (DEFAULT)[address] [facility] [place] [address] Mean Cell Hgb 28.3 pg Normal 25.9-33.[address] [facility] Comment on above: Performed By: #### L AB980 ####[facility] (DEFAULT)[address] [place] [address] Mean Cell Hgb Conc 32.1 g/dL Normal 31.4-35.9 [facility] Comment on above: Performed By: #### L AB980 ####[facility] (DEFAULT)[address] [place] [address] Monocytes (Bld) [#/Vol] 0.60 10*3/uL Normal 0.22-0.[address] [facility] Comment on above: Performed By: #### L AB980 ####[facility] (DEFAULT)[address] [place] [address] Monocytes/100 WBC (Bld) 8.9 % Normal [facility] Comment on above: Performed By: #### L AB980 ####[facility] (DEFAULT)[address] [place] [address] Nucleated RBC 0.0 /100 WBC Normal <=0.2 [facility] Comment on above: Performed By: #### L [id number] ####[facility] (DEFAULT)[address] [place] [address] Platelet mean volume (Bld) [Entitic vol] 9.8 fL Normal 8.5-12.[address] [facility] Comment on above: Performed By: #### L [id number] ####[facility] (DEFAULT)[address] [place] [address] Platelets (Bld) [#/Vol] 285 10*3/uL Normal 150-[address] [facility] Comment on above: Performed By: #### L [id number] ####[facility] (DEFAULT)[address] [place] [address] RBC (Bld) [#/Vol] 3.25 10*6/uL Low 3.91-5.[address] [facility] Comment on above: Performed By: #### L [id number] ####[facility] (DEFAULT)[address] [place] [address] RBC Distribution 14.2 % Normal 10.8-14.9 [facility] Comment on above: Performed By: #### L [id number] ####[facility] (DEFAULT)[address] [place] [address] Segs + Bands Auto 64.1 % Normal [facility] Comment on above: Performed By: #### L [id number] ####[facility] (DEFAULT)[address] [place] [address] Segs + Bands,Absolute Auto 4.29 K/uL Normal 1.64-7.[address] [facility] Comment on above: Performed By: #### L [id number] ####[facility] (DEFAULT)[address] [place] [address] WBC (Bld) [#/Vol] 6.71 10*3/uL Normal 3.99-11.[address] [facility] Comment on above: Performed By: #### L [id number] ####[facility] (DEFAULT)[address] [place] [address], [place] [address] CHEM 7 (LYTES,BUN,CREA,GLUC) on 01-08-2025 Anion gap [Moles/Vol] 13 mmol/L 7 - 17 mmol/L [facility] Chloride [Moles/Vol] 103 mmol/L 98 - 10 8 mmol/L [facility] CO2 [Moles/Vol] 24 mmol/L 21 - 31 mmol/L [facility] Creatinine [Mass/Vol] 0.8 mg/dL 0.50 - 1.20 mg/dL [facility] eGFR, CKD-EPI, Female 85 - PINF [facility] Glucose [Mass/Vol] 205 mg/dL High 70 - 179 mg/dL [facility] Interpretation and review of laboratory results Abnormal [facility] Osmolality Calc [Osmolality] 291 [facility] Potassium [Moles/Vol] 4.1 mmol/L 3.5 - 5.0 mmol/L [facility] Sodium [Moles/Vol] 136 mmol/L 135 - 145 mmol/L [facility] Urea nitrogen [Mass/Vol] 8 mg/dL 7 - 25 mg/dL [facility] Urea nitrogen/Creatinine [Mass ratio] 10 mg/mg [facility] Anion gap [Moles/Vol] 13 mmol/L Normal 7-17 [facility] Comment on above: Performed By: #### H FP, MGO, CKB, CHM7 ####[facility] (DEFAULT)[address] [place] [address] Chloride [Moles/Vol] 103 mmol/L Normal 98-[address] [facility] Comment on above: Performed By: #### H FP, MGO, CKB, CHM7 ####[facility] (DEFAULT)[address] [place] [address] CO2 [Moles/Vol] 24 mmol/L Normal 21-31 [facility] Comment on above: Performed By: #### H FP, MGO, CKB, CHM7 ####[facility] (DEFAULT)[address] [place] [address] Creatinine [Mass/Vol] 0.80 mg/dL Normal 0.50-1.20 [facility] Comment on above: Performed By: #### H FP, MGO, CKB, CHM7 ####[facility] (DEFAULT)[address] [place] [address] GFR/1.73 sq M.predicted among non-blacks MDRD (S/P/Bld) [Vol rate/Area] 85 mL/min/{1.73_m2} Normal >=[address] [facility] Comment on above: Result Comment: Repo rted eGFR is based on the CKD-EPI 2020 equation using creatinine, age, and sex. Performed By: #### H FP, MGO, CKB, CHM7 ####[facility] (DEFAULT)[address] [place] [address] Glucose [Mass/Vol] 205 mg/dL High Nonfastin -179 mg/dL; Fastin-[address] [facility] Comment on above: Performed By: #### H FP, MGO, CKB, CHM7 ####[facility] (DEFAULT)[address] [place] [address] Osmolality [Osmolality] 291 mosm/kg Normal 278-[address] [facility] Comment on above: Performed By: #### H FP, MGO, CKB, CHM7 ####[facility] (DEFAULT)[address] [place] [address] Potassium [Moles/Vol] 4.1 mmol/L Normal 3.5-5.0 [facility] Comment on above: Performed By: #### H FP, MGO, CKB, CHM7 ####[facility] (DEFAULT)[address] [place] [address] Sodium [Moles/Vol] 136 mmol/L Normal 135-145 [facility] Comment on above: Performed By: #### H FP, MGO, CKB, CHM7 ####[facility] (DEFAULT)[address] [place] [address], [place] [address] Urea nitrogen [Mass/Vol] 8 mg/dL Normal 7-[address] [facility] Comment on above: Performed By: #### H FP, MGO, CKB, CHM7 ####[facility] (DEFAULT)[address] [place] [address] Urea nitrogen/Creatinine [Mass ratio] 10 mg/mg Normal [facility] Comment on above: Performed By: #### H FP, MGO, CKB, CHM7 ####[facility] (DEFAULT)[address] [place] [address] CKOrdered By: Keshia steiner on 01-08-2025 CK [Catalytic activity/Vol] 61366 U/L Critically high 30 - 184 U/L [facility] Interpretation and review of laboratory results Abnormal [facility] CKon 01-08-2025 CK [Catalytic activity/Vol] 47254 U/L Critically high 30-[address] [facility] Comment on above: Performed By: #### H FP, CKB ####[facility] (DEFAULT)[address] [place] [address] CK [Catalytic activity/Vol] 54373 U/L Critically high 30-[address] [facility] Comment on above: Performed By: #### H FP, MGO, CKB, CHM7 ####[facility] (DEFAULT)[address] [place] [address] CKOrdered By: Mary garcia n 01-08-2025 CK [Catalytic activity/Vol] 48168 U/L Critically high 30 - 184 U/L [facility] Interpretation and review of laboratory results Abnormal [facility] EXTRA MICROon 01-08-2025 [facility] GLUCOSE POCon 01-08-2025 Glucose [Mass/Vol] 146 mg/dL 70 - 179 mg/dL [facility] POC Sample Type CAPBL [facility] Glucose [Mass/Vol] 153 mg/dL 70 - 179 mg/dL [facility] POC Sample Type [facility] Glucose [Mass/Vol] 212 mg/dL High 70 - 179 mg/dL [facility] Interpretation and review of laboratory results Abnormal [facility] POC Sample Type CAPBL [facility] Glucose [Mass/Vol] 229 mg/dL High 70 - 179 mg/dL [facility] Interpretation and review of laboratory results Abnormal [facility] POC Sample Type CAPBL [facility] Glucose [Mass/Vol] 206 mg/dL High 70 - 179 mg/dL [facility] Interpretation and review of laboratory results Abnormal [facility] POC Sample Type CAPBL [facility] HEPATIC FUNCTION PANELon Albumin [Mass/Vol] 3.6 g/dL 3.5 - 5.0 g/dL [facility] ALP [Catalytic activity/Vol] 112 U/L 32 - 126 U/L [facility] ALT [Catalytic activity/Vol] 130 U/L High 9 - 48 U/L [facility] AST [Catalytic activity/Vol] 323 U/L High 10 - 39 U/L [facility] Bilirubin [Mass/Vol] 0.3 mg/dL NINF - 1.5 mg/dL [facility] Bilirubin.direct [Mass/Vol] mg/dL NINF - 0.3 mg/dL [facility] Interpretation and review of laboratory results Abnormal [facility] Protein [Mass/Vol] 7.2 g/dL 6.4 - 8.3 g/dL [facility] Albumin [Mass/Vol] 3.6 g/dL Normal 3.5-5.0 [facility] Comment on above: Performed By: #### H FP, CKB ####[facility] (DEFAULT)[address] [place] [address] ALP [Catalytic activity/Vol] 112 U/L Normal 32-[address] [facility] Comment on above: Performed By: #### H FP, CKB ####[facility] (DEFAULT)[address] [place] [address] ALT [Catalytic activity/Vol] 130 U/L High 9-[address] [facility] Comment on above: Performed By: #### H FP, CKB ####[facility] (DEFAULT)[address] [place] [address] AST [Catalytic activity/Vol] 323 U/L High 10-[address] [facility] Comment on above: Performed By: #### H FP, CKB ####[facility] (DEFAULT)[address] [place] [address] Bilirubin [Mass/Vol] 0.3 mg/dL Normal <1.[address] [facility] Comment on above: Performed By: #### H FP, CKB ####[facility] (DEFAULT)[address] [place] [address] Bilirubin Direct < Normal <0.3 [facility] Comment on above: Result Comment: Spec imen hemolyzed. Direct bilirubin results may be falsely decreased. Interpret within the clinical context. Performed By: #### H FP, CKB ####[facility] (DEFAULT)[address] [place] [address] Protein [Mass/Vol] 7.2 g/dL Normal 6.4-8.3 [facility] Comment on above: Performed By: #### H FP, CKB ####[facility] (DEFAULT)[address] [place] [address] Albumin [Mass/Vol] 3.5 g/dL 3.5 - 5.0 g/dL [facility] ALP [Catalytic activity/Vol] 104 U/L 32 - 126 U/L [facility] ALT [Catalytic activity/Vol] 101 U/L High 9 - 48 U/L [facility] AST [Catalytic activity/Vol] 253 U/L High 10 - 39 U/L [facility] Bilirubin [Mass/Vol] 0.3 mg/dL NINF - 1.5 mg/dL [facility] Bilirubin.direct [Mass/Vol] mg/dL NINF - 0.3 mg/dL [facility] Interpretation and review of laboratory results Abnormal [facility] Protein [Mass/Vol] 6.7 g/dL 6.4 - 8.3 g/dL [facility] Albumin [Mass/Vol] 3.5 g/dL Normal 3.5-5.0 [facility] Comment on above: Performed By: #### H FP, MGO, CKB, CHM7 ####[facility] (DEFAULT)[address] [place] [address] ALP [Catalytic activity/Vol] 104 U/L Normal 32-[address] [facility] Comment on above: Performed By: #### H FP, MGO, CKB, CHM7 ####[facility] (DEFAULT)[address] [place] [address] ALT [Catalytic activity/Vol] 101 U/L High 9-[address] [facility] Comment on above: Performed By: #### H FP, MGO, CKB, CHM7 ####[facility] (DEFAULT)[address] [place] [address] AST [Catalytic activity/Vol] 253 U/L High 10-[address] [facility] Comment on above: Performed By: #### H FP, MGO, CKB, CHM7 ####[facility] (DEFAULT)[address] [place] [address] Bilirubin [Mass/Vol] 0.3 mg/dL Normal <1.[address] [facility] Comment on above: Performed By: #### H FP, MGO, CKB, CHM7 ####[facility] (DEFAULT)[address] [place] [address] Bilirubin Direct < Normal <0.3 [facility] Comment on above: Performed By: #### H FP, MGO, CKB, CHM7 ####[facility] (DEFAULT)[address] [place] [address] Protein [Mass/Vol] 6.7 g/dL Normal 6.4-8.3 [facility] Comment on above: Performed By: #### H FP, MGO, CKB, CHM7 ####[facility] (DEFAULT)[address] [place] [address] INTERLEUKIN 2 RECEPTORon Interleukin 2 Receptor Soluble [Mass/Vol] 1183 pg/mL High NINF - 959 pg/mL [facility] Interpretation and review of laboratory results Abnormal [facility] LYSOZYME (MURAMIDASE)on 12-14 Lysozyme [Mass/Vol] 5.4 [facility] MAGNESIUMon 01-08-2025 Interpretation and review of laboratory results Normal [facility] Magnesium [Mass/Vol] 2 mg/dL 1.6 - 2 .6 mg/dL [facility] Magnesium [Mass/Vol] 2.0 mg/dL Normal 1.6-2.[address] [facility] Comment on above: Performed By: #### H FP, MGO, CKB, CHM7 ####[facility] (DEFAULT)[address] [place] [address] MYOGLOBIN URINEOrdered By: Shayla Hudson on 01-08-2025 Interpretation and review of laboratory results Abnormal [facility] RBC (U) [#/Vol] Reflexed to Sendout Abnormal Negative [facility] MYOGLOBIN URINEon 01-08-2025 Myoglobin Urine Reflexed to Sendout Abnormal Negative [facility] Comment on above: Performed By: #### M DENISE, YMYGLU ####[facility] (DEFAULT)[address] [place] [address] MYOGLOBIN, URINEon 5 Myoglobin, Urine 1384 mcg/L High 0-24 [facility] Comment on above: Result Comment: ---- ADDITIONAL INFORMATION This test has been modified from the manufacturer's service representative'sinstructions. Its performance characteristics weredetermined by [facility] in a manner consistent withCLIA requirements. This test has not been cleared orapproved by the U.S. Food and Drug Administration.Test Performed by:[address] Director: Jennifer Robles Ph.D.; CLIA# [id number] Performed By: #### M YO, YMYGLU ####[facility] (DEFAULT)[address] [place] [address] URINALYSIS REFLEX TO CULTURE PERFORMABLEon 01-08-2025 Appearance (U) Clear Clear [facility] Bacteria LM Ql (Urine sed) ABSENT ABSENT [facility] Color (U) Yellow Yellow [facility] Epithelial cells.squamous LM Ql (Urine sed) 3-5/hpf = 1+ 0-2/hpf, 3-5/hpf = 1+ [facility] Glucose Test strip (U) [Mass/Vol] 250 mg/dL Abnormal Negative [facility] Interpretation and review of laboratory results Abnormal [facility] Ketones (U) [Mass/Vol] Negative Negative [facility] Leukocyte esterase Test strip Ql (U) Negative Negative [facility] Nitrite Ql (U) Negative Negative [facility] pH (U) 6.5 [pH] 5.0 - 7.0 [facility] Protein (U) [Mass/Vol] Negative Negative [facility] RBC (U) [#/Vol] Small Abnormal Negative [facility] RBC LM.HPF (Urine sed) [#/Area] 0-2 [facility] Specific gravity (U) [Rel density] 1.013 1.001 - 1.035 [facility] Urobilinogen (U) [Mass/Vol] 0.2 E.U./dL 0.2 E.U/dL, 1.0 E.U/dL [facility] WBC LM.HPF (Urine sed) [#/Area] 0 - 5 [facility] Appearance (U) Clear Normal Clear [facility] Comment on above: Order Comment: For i ndwelling catheters, specimen collection is acceptable on catheter day 1 and 2 only. ? Performed By: #### U [id number] ####[facility] (DEFAULT)[address] [place] [address], [place] [address] Bacteria ABSENT Normal ABSENT [facility] Comment on above: Order Comment: For i ndwelling catheters, specimen collection is acceptable on catheter day 1 and 2 only. ? Performed By: #### U [id number] ####[facility] (DEFAULT)[address] [place] [address], [place] [address] Blood Urine Small Abnormal Negative [facility] Comment on above: Order Comment: For i ndwelling catheters, specimen collection is acceptable on catheter day 1 and 2 only. ? Performed By: #### U [id number] ####[facility] (DEFAULT)[address] [place] [address] Color (U) Yellow Normal Yellow [facility] Comment on above: Order Comment: For i ndwelling catheters, specimen collection is acceptable on catheter day 1 and 2 only. ? Performed By: #### U [id number] ####[facility] (DEFAULT)[address] [place] [address], [place] [address] Glucose Ql (U) 250 mg/dL Abnormal Negative [facility] Comment on above: Order Comment: For i ndwelling catheters, specimen collection is acceptable on catheter day 1 and 2 only. ? Performed By: #### U [id number] ####[facility] (DEFAULT)[address] [place] [address], [place] [address] Ketones Ql (U) Negative Normal Negative [facility] Comment on above: Order Comment: For i ndwelling catheters, specimen collection is acceptable on catheter day 1 and 2 only. ? Performed By: #### U [id number] ####[facility] (DEFAULT)[address] [place] [address] Leukocyte esterase Test strip Ql (U) Negative Normal Negative [facility] Comment on above: Order Comment: For i ndwelling catheters, specimen collection is acceptable on catheter day 1 and 2 only. ? Performed By: #### U [id number] ####[facility] (DEFAULT)[address] [place] [address] Nitrites Urine Negative Normal Negative [facility] Comment on above: Order Comment: For i ndwelling catheters, specimen collection is acceptable on catheter day 1 and 2 only. ? Performed By: #### U [id number] ####[facility] (DEFAULT)[address] [place], [place] [address], [place] [address] pH (U) 6.5 [pH] Normal 5.0-7.[address] [facility] Comment on above: Order Comment: For i ndwelling catheters, specimen collection is acceptable on catheter day 1 and 2 only. ? Performed By: #### U [id number] ####[facility] (DEFAULT)[address] [facility] [place] [place] [address] Protein Urine Negative Normal Negative [facility] Comment on above: Order Comment: For i ndwelling catheters, specimen collection is acceptable on catheter day 1 and 2 only. ? Performed By: #### U [id number] ####[facility] (DEFAULT)[address] [place] [address] RBC Urine 0-2 Normal 0-[address] [facility] Comment on above: Order Comment: For i ndwelling catheters, specimen collection is acceptable on catheter day 1 and 2 only. ? Performed By: #### U [id number] ####[facility] (DEFAULT)[address] [place] [address] Specific [place] Urine 1.013 Normal 1.001-1.035 [facility] Comment on above: Order Comment: For i ndwelling catheters, specimen collection is acceptable on catheter day 1 and 2 only. ? Performed By: #### U [id number] ####[facility] (DEFAULT)[address] [place] [address] Squamous/Epithelial Cells, Urine 3-5/hpf = 1+ Normal 0-2/hpf, 3-5/hpf = 1+ [facility] Comment on above: Order Comment: For i ndwelling catheters, specimen collection is acceptable on catheter day 1 and 2 only. ? Performed By: #### U [id number] ####[facility] (DEFAULT)[address] [place] [address] Urobilinogen Urine 0.2 E.U./dL Normal 0.2 E.U/d L, 1.0 E.U/dL [facility] Comment on above: Order Comment: For i ndwelling catheters, specimen collection is acceptable on catheter day 1 and 2 only. ? Performed By: #### U [id number] ####[facility] (DEFAULT)[address] [place] [address] WBC Urine 0 - 5 Normal 0 - [address] [facility] Comment on above: Order Comment: For i ndwelling catheters, specimen collection is acceptable on catheter day 1 and 2 only. ? Performed By: #### U [id number] ####[facility] (DEFAULT)[address] [place] [address] Bacteria identified Cx Nom ( Bld)on 01-07-2025 Bacteria identified Cx Nom (Unsp spec) NO GROWTH DAY 5 OF 5 [facility] CBC AND ELECTRONIC DIFFon Basophils (Bld) [#/Vol] 0.04 10*3/uL 0.00 - 0.15 K/uL [facility] Basophils/100 WBC (Bld) 0.6 % [facility] Differential cell count method Nom (Bld) Electronic Differential O [facility] Eosinophils (Bld) [#/Vol] 0.18 10*3/uL 0.00 - 0.42 K/uL [facility] Eosinophils/100 WBC (Bld) 2.7 % [facility] Erythrocyte distribution width (RBC) [Ratio] 14.3 % 10.8 - 14.9 % [facility] Hematocrit (Bld) [Volume fraction] 30.1 % Low 34.9 - 44.3 % [facility] Hemoglobin (Bld) [Mass/Vol] 9.4 g/dL Low 11.4 - 15.2 g/dL [facility] Immature granulocytes (Bld) [#/Vol] K/uL NINF - 0.08 K/uL [facility] Immature granulocytes/100 WBC (Bld) 0.4 % [facility] Interpretation and review of laboratory results Abnormal [facility] Lymphocytes (Bld) [#/Vol] 1.46 10*3/uL 1.16 - 3.51 K/uL [facility] Lymphocytes/100 WBC (Bld) 21.8 % [facility] MCH (RBC) [Entitic mass] 28.1 pg 25.9 - 33.9 pg [facility] MCHC (RBC) [Mass/Vol] 31.2 g/dL Low 31.4 - 35.9 g/dL [facility] MCV (RBC) [Entitic vol] 89.9 fL 79.6 - 97.7 fL [facility] Monocytes (Bld) [#/Vol] 0.59 10*3/uL 0.22 - 0.87 K/uL [facility] Monocytes/100 WBC (Bld) 8.8 % [facility] Neutrophils (Bld) [#/Vol] 4.4 10*3/uL 1.64 - 7.28 K/uL [facility] Nucleated RBC/100 WBC (Bld) [Ratio] 0 % NINF [facility] Platelet mean volume (Bld) [Entitic vol] 9.7 fL 8.5 - 12.2 fL [facility] Platelets (Bld) [#/Vol] 283 10*3/uL 150 - 393 K/uL [facility] RBC (Bld) [#/Vol] 3.35 10*6/uL Low [facility] Segmented neutrophils/100 WBC (Bld) 65.7 % [facility] WBC (Bld) [#/Vol] 6.7 10*3/uL 3.99 - 11. 19 K/uL [facility] Basophils (Bld) [#/Vol] 0.04 10*3/uL Normal 0.00-0.[address] [facility] Comment on above: Performed By: #### L [id number] ####[facility] (DEFAULT)[address] [place] [address] Basophils/100 WBC (Bld) 0.6 % Normal [facility] Comment on above: Performed By: #### L [id number] ####[facility] (DEFAULT)[address] [place] [address] DIFF STATUS Electronic Differential Normal [facility] Comment on above: Performed By: #### L [id number] ####[facility] (DEFAULT)[address] [place] [address] Eosinophils (Bld) [#/Vol] 0.18 10*3/uL Normal 0.00-0.[address] [facility] Comment on above: Performed By: #### L [id number] ####[facility] (DEFAULT)[address] [place] [address] Eosinophils/100 WBC (Bld) 2.7 % Normal [facility] Comment on above: Performed By: #### L [id number] ####[facility] (DEFAULT)[address] [place] [address] Hematocrit (Bld) [Volume fraction] 30.1 % Low 34.9-44.[address] [facility] Comment on above: Performed By: #### L [id number] ####[facility] (DEFAULT)[address] [place] [address] Hemoglobin (Bld) [Mass/Vol] 9.4 g/dL Low 11.4-15.[address] [facility] Comment on above: Performed By: #### L [id number] ####[facility] (DEFAULT)[address] [place] [address] Immature Grans % 0.4 % Normal [facility] Comment on above: Performed By: #### L [id number] ####[facility] (DEFAULT)[address] [place], [place] [address], [place] [address] Immature Grans Absolute < Normal <=0.[address] [facility] Comment on above: Performed By: #### L [id number] ####[facility] (DEFAULT)[address] [place] [address], [place] [address] Lymphocytes (Bld) [#/Vol] 1.46 10*3/uL Normal 1.16-3.[address] [facility] Comment on above: Performed By: #### L [id number] ####[facility] (DEFAULT)[address] [place] [address], [place] [address] Lymphocytes/100 WBC (Bld) 21.8 % Normal [facility] Comment on above: Performed By: #### L [id number] ####[facility] (DEFAULT)[address] [place] [address], [place] [address] MCV (RBC) [Entitic vol] 89.9 fL Normal 79.6-97.[address] [facility] Comment on above: Performed By: #### L [id number] ####[facility] (DEFAULT)[address] [place] [address] Mean Cell Hgb 28.1 pg Normal 25.9-33.[address] [facility] Comment on above: Performed By: #### L AB980 ####[facility] (DEFAULT)[address] [place] [address] Mean Cell Hgb Conc 31.2 g/dL Low 31.4-35.9 [facility] Comment on above: Performed By: #### L [id number] ####[facility] (DEFAULT)[address] [place] [address] Monocytes (Bld) [#/Vol] 0.59 10*3/uL Normal 0.22-0.[address] [facility] Comment on above: Performed By: #### L [id number] ####[facility] (DEFAULT)[address] [place] [address] Monocytes/100 WBC (Bld) 8.8 % Normal [facility] Comment on above: Performed By: #### L [id number] ####[facility] (DEFAULT)[address] [place] [address] Nucleated RBC 0.0 /100 WBC Normal <=0.2 [facility] Comment on above: Performed By: #### L [id number] ####[facility] (DEFAULT)[address] [place] [address] Platelet mean volume (Bld) [Entitic vol] 9.7 fL Normal 8.5-12.[address] [facility] Comment on above: Performed By: #### L [id number] ####[facility] (DEFAULT)[address] [place] [address] Platelets (Bld) [#/Vol] 283 10*3/uL Normal 150-[address] [facility] Comment on above: Performed By: #### L [id number] ####[facility] (DEFAULT)[address] [place] [address] RBC (Bld) [#/Vol] 3.35 10*6/uL Low 3.91-5.[address] [facility] Comment on above: Performed By: #### L [id number] ####[facility] (DEFAULT)[address] [place] [address] RBC Distribution 14.3 % Normal 10.8-14.9 [facility] Comment on above: Performed By: #### L [id number] ####[facility] (DEFAULT)[address] [place] [address] Segs + Bands Auto 65.7 % Normal [facility] Comment on above: Performed By: #### L [id number] ####[facility] (DEFAULT)[address] [place] [address] Segs + Bands,Absolute Auto 4.40 K/uL Normal 1.64-7.[address] [facility] Comment on above: Performed By: #### L [id number] ####[facility] (DEFAULT)[address] [place] [address] WBC (Bld) [#/Vol] 6.70 10*3/uL Normal 3.99-11.[address] [facility] Comment on above: Performed By: #### L [id number] ####[facility] (DEFAULT)[address] [place] [address] CHEM 7 (LYTES,BUN,CREA,GLUC) on 01-07-2025 Anion gap [Moles/Vol] 14 mmol/L 7 - 17 mmol/L [facility] Chloride [Moles/Vol] 103 mmol/L 98 - 10 8 mmol/L [facility] CO2 [Moles/Vol] 25 mmol/L 21 - 31 mmol/L [facility] Creatinine [Mass/Vol] 0.77 mg/dL 0.50 - 1.20 mg/dL [facility] eGFR, CKD-EPI, Female 89 - PINF [facility] Glucose [Mass/Vol] 164 mg/dL 70 - 179 mg/dL [facility] Osmolality Calc [Osmolality] 292 [facility] Potassium [Moles/Vol] 4.2 mmol/L 3.5 - 5.0 mmol/L [facility] Sodium [Moles/Vol] 138 mmol/L 135 - 145 mmol/L [facility] Urea nitrogen [Mass/Vol] 8 mg/dL 7 - 25 mg/dL [facility] Urea nitrogen/Creatinine [Mass ratio] 10 mg/mg [facility] Anion gap [Moles/Vol] 14 mmol/L Normal 7-17 [facility] Comment on above: Performed By: #### CLOTILDE PUGA ####[facility] (DEFAULT)[address] [place] [address] Chloride [Moles/Vol] 103 mmol/L Normal 98-[address] [facility] Comment on above: Performed By: #### CLARISSA PUGA7 ####[facility] (DEFAULT)[address] [place] [address] CO2 [Moles/Vol] 25 mmol/L Normal 21-31 [facility] Comment on above: Performed By: #### CLARISSA PUGA7 ####[facility] (DEFAULT)[address] [place] [address] Creatinine [Mass/Vol] 0.77 mg/dL Normal 0.50-1.20 [facility] Comment on above: Performed By: #### CLARISSA PUGA7 ####[facility] (DEFAULT)[address] [place] [address] GFR/1.73 sq M.predicted among non-blacks MDRD (S/P/Bld) [Vol rate/Area] 89 mL/min/{1.73_m2} Normal >=[address] [facility] Comment on above: Result Comment: Repo rted eGFR is based on the CKD-EPI 2020 equation using creatinine, age, and sex. Performed By: #### CLOTILDE PUGA ####[facility] (DEFAULT[facility] [place] [address] Glucose [Mass/Vol] 164 mg/dL Normal Nonfastin -179 mg/dL; Fastin-[address] [facility] Comment on above: Performed By: #### CLARISSA PUGA7 ####[facility] (DEFAULT)[address] [place] [address] Osmolality [Osmolality] 292 mosm/kg Normal 278-[address] [facility] Comment on above: Performed By: #### Shanell CHANG CHM7 ####[facility] (DEFAULT)[address] [place] [address] Potassium [Moles/Vol] 4.2 mmol/L Normal 3.5-5.[address] [facility] Comment on above: Performed By: #### Shanell CHANG CHM7 ####[facility] (DEFAULT)[address] [place] [address] Sodium [Moles/Vol] 138 mmol/L Normal 135-145 [facility] Comment on above: Performed By: #### Shanell CHANG CHM7 ####[facility] (DEFAULT)[address] [place] [address] Urea nitrogen [Mass/Vol] 8 mg/dL Normal 7-[address] [facility] Comment on above: Performed By: #### Shanell CHANG CHM7 ####[facility] (DEFAULT)[address] [place] [address] Urea nitrogen/Creatinine [Mass ratio] 10 mg/mg Normal [facility] Comment on above: Performed By: #### CLARISSA PUGA7 ####[facility] (DEFAULT)[address] [place] [address] GLUCOSE POCon 01-07-2025 Glucose [Mass/Vol] 158 mg/dL 70 - 179 mg/dL [facility] POC Sample Type CAPBL [facility] Glucose [Mass/Vol] 305 mg/dL High 70 - 179 mg/dL [facility] Interpretation and review of laboratory results Abnormal [facility] POC Sample Type CAPBL [facility] Glucose [Mass/Vol] 310 mg/dL High 70 - 179 mg/dL [facility] Interpretation and review of laboratory results Abnormal [facility] POC Sample Type CAPBL [facility] Glucose [Mass/Vol] 169 mg/dL 70 - 179 mg/dL [facility] POC Sample Type CAPBL [facility] Glucose [Mass/Vol] 184 mg/dL High 70 - 179 mg/dL [facility] Interpretation and review of laboratory results Abnormal [facility] POC Sample Type CAPBL [facility] MAGNESIUMon 01-07-2025 Interpretation and review of laboratory results Normal [facility] Magnesium [Mass/Vol] 2.1 mg/dL 1.6 - 2 .6 mg/dL [facility] Magnesium [Mass/Vol] 2.1 mg/dL Normal 1.6-2.[address] [facility] Comment on above: Performed By: #### [facility] ####[facility] (DEFAULT)[address] [place] [address] No Panel Informationon 01-07 RADIOLOGY RADIOLOGY [facility] No Panel InformationOrdered By: Abhinav Graves on 01-07-2025 [facility] Work Phone: XR SHOULDER LEFT 2+ VIEWSon 01-07-2025 XR SHOULDER LEFT 2+ VIEWS Normal [facility] XR SHOULDER RIGHT 2+ VIEWSon 01-07-2025 XR SHOULDER RIGHT 2+ VIEWS Normal [facility] XR Shoulder - left 2 Viewson 01-07-2025 Radiology Study observation (narrative) [facility] XR Shoulder - right 2 Viewso n 01-07-2025 Radiology Study observation (narrative) [facility] Bacteria identified Cx Nom ( Bld)on 01-06-2025 Bacteria identified Cx Nom (Unsp spec) NO GROWTH DAY 5 OF 5 [facility] Bacteria identified Cx Nom ( Body fld)Ordered By: Trina Lindsey on 01-06-2025 Bacteria identified Cx Nom (Unsp spec) NO GROWTH DAY 2 OF 2 [facility] Microscopic observation Other stain Nom (Unsp spec) Cytocentrifuge preparation [facility] Microscopic observation Other stain Nom (Unsp spec) Neutrophils, None [facility] Microscopic observation Other stain Nom (Unsp spec) Red Blood Cells Present [facility] Microscopic observation Other stain Nom (Unsp spec) No organisms seen [facility] CBC AND ELECTRONIC DIFFon Basophils (Bld) [#/Vol] 0.05 10*3/uL 0.00 - 0.15 K/uL [facility] Basophils/100 WBC (Bld) 0.7 % [facility] Differential cell count method Nom (Bld) Electronic Differential [facility] Eosinophils (Bld) [#/Vol] 0.22 10*3/uL 0.00 - 0.42 K/uL [facility] Eosinophils/100 WBC (Bld) 3.1 % [facility] Erythrocyte distribution width (RBC) [Ratio] 14.5 % 10.8 - 14.9 % [facility] Hematocrit (Bld) [Volume fraction] 31.5 % Low 34.9 - 44.3 % [facility] Hemoglobin (Bld) [Mass/Vol] 9.7 g/dL Low 11.4 - 15.2 g/dL [facility] Immature granulocytes (Bld) [#/Vol] 0.05 10*3/uL NINF - 0.08 K/uL [facility] Immature granulocytes/100 WBC (Bld) 0.7 % [facility] Interpretation and review of laboratory results Abnormal [facility] Lymphocytes (Bld) [#/Vol] 1.69 10*3/uL 1.16 - 3.51 K/uL [facility] Lymphocytes/100 WBC (Bld) 23.6 % [facility] MCH (RBC) [Entitic mass] 27.9 pg 25.9 - 33.9 pg [facility] MCHC (RBC) [Mass/Vol] 30.8 g/dL Low 31.4 - 35.9 g/dL [facility] MCV (RBC) [Entitic vol] 90.5 fL 79.6 - 97.7 fL [facility] Monocytes (Bld) [#/Vol] 0.51 10*3/uL 0.22 - 0.87 K/uL [facility] Monocytes/100 WBC (Bld) 7.1 % [facility] Neutrophils (Bld) [#/Vol] 4.64 10*3/uL 1.64 - 7.28 K/uL [facility] Nucleated RBC/100 WBC (Bld) [Ratio] 0 % [facility] Platelet mean volume (Bld) [Entitic vol] 9.9 fL 8.5 - 12.2 fL [facility] Platelets (Bld) [#/Vol] 296 10*3/uL 150 - 393 K/uL [facility] RBC (Bld) [#/Vol] 3.48 10*6/uL Low [facility] Segmented neutrophils/100 WBC (Bld) 64.8 % [facility] WBC (Bld) [#/Vol] 7.16 10*3/uL 3.99 - 11. 19 K/uL [facility] Basophils (Bld) [#/Vol] 0.05 10*3/uL Normal 0.00-0.[address] [facility] Comment on above: Performed By: #### L [id number] ####[facility] (DEFAULT)[address] [place] [address] Basophils/100 WBC (Bld) 0.7 % Normal [facility] Comment on above: Performed By: #### L AB980 ####[facility] (DEFAULT)[address] [place] [address] DIFF STATUS Electronic Differential Normal [facility] Comment on above: Performed By: #### L [id number] ####[facility] (DEFAULT)[address] [place] [address] Eosinophils (Bld) [#/Vol] 0.22 10*3/uL Normal 0.00-0.[address] [facility] Comment on above: Performed By: #### L [id number] ####[facility] (DEFAULT)[address] [place] [address] Eosinophils/100 WBC (Bld) 3.1 % Normal [facility] Comment on above: Performed By: #### L [id number] ####[facility] (DEFAULT)[address] [facility] [place] [address] Hematocrit (Bld) [Volume fraction] 31.5 % Low 34.9-44.[address] [facility] Comment on above: Performed By: #### L [id number] ####[facility] (DEFAULT)[address] [place] [address] Hemoglobin (Bld) [Mass/Vol] 9.7 g/dL Low 11.4-15.[address] [facility] Comment on above: Performed By: #### L [id number] ####[facility] (DEFAULT)[address] [place] [address] Immature Grans % 0.7 % Normal [facility] Comment on above: Performed By: #### L [id number] ####[facility] (DEFAULT)[address] [facility] [place] [address] Immature Grans Absolute 0.05 K/uL Normal <=0.[address] [facility] Comment on above: Performed By: #### L [id number] ####[facility] (DEFAULT)[address] [place] [address] Lymphocytes (Bld) [#/Vol] 1.69 10*3/uL Normal 1.16-3.[address] [facility] Comment on above: Performed By: #### L AB980 ####[facility] (DEFAULT)[address] [facility] [place] [address] Lymphocytes/100 WBC (Bld) 23.6 % Normal [facility] Comment on above: Performed By: #### L AB980 ####[facility] (DEFAULT)[address] [place] [address] MCV (RBC) [Entitic vol] 90.5 fL Normal 79.6-97.[address] [facility] Comment on above: Performed By: #### L AB980 ####[facility] (DEFAULT)[address] [place] [address] Mean Cell Hgb 27.9 pg Normal 25.9-33.[address] [facility] Comment on above: Performed By: #### L AB980 ####[facility] (DEFAULT)[address] [place] [address], [place] [address] Mean Cell Hgb Conc 30.8 g/dL Low 31.4-35.9 [facility] Comment on above: Performed By: #### L AB980 ####[facility] (DEFAULT)[address] [place] [address], [place] [address] Monocytes (Bld) [#/Vol] 0.51 10*3/uL Normal 0.22-0.[address] [facility] Comment on above: Performed By: #### L [id number] ####[facility] (DEFAULT)[address] [place] [address], [place] [address] Monocytes/100 WBC (Bld) 7.1 % Normal [facility] Comment on above: Performed By: #### L AB980 ####[facility] (DEFAULT)[address] [place] [address] Nucleated RBC 0.0 /100 WBC Normal <=0.2 [facility] Comment on above: Performed By: #### L [id number] ####[facility] (DEFAULT)[address] [place] [address], [place] [address] Platelet mean volume (Bld) [Entitic vol] 9.9 fL Normal 8.5-12.[address] [facility] Comment on above: Performed By: #### L [id number] ####[facility] (DEFAULT)[address] [place] [address] [place] [address] Platelets (Bld) [#/Vol] 296 10*3/uL Normal 150-[address] [facility] Comment on above: Performed By: #### L [id number] ####[facility] (DEFAULT)[address] [place] [address] RBC (Bld) [#/Vol] 3.48 10*6/uL Low 3.91-5.[address] [facility] Comment on above: Performed By: #### L AB980 ####[facility] (DEFAULT)[address] [place] [address] RBC Distribution 14.5 % Normal 10.8-14.9 [facility] Comment on above: Performed By: #### L AB980 ####[facility] (DEFAULT)[address] [place] [address] Segs + Bands Auto 64.8 % Normal [facility] Comment on above: Performed By: #### L AB980 ####[facility] (DEFAULT)[address] [place] [address] Segs + Bands,Absolute Auto 4.64 K/uL Normal 1.64-7.[address] [facility] Comment on above: Performed By: #### L AB980 ####[facility] (DEFAULT)[address] [place] [address] WBC (Bld) [#/Vol] 7.16 10*3/uL Normal 3.99-11.[address] [facility] Comment on above: Performed By: #### L AB980 ####[facility] (DEFAULT)[address] [place] [address] CHEM 7 (LYTES,BUN,CREA,GLUC) on 01-06-2025 Anion gap [Moles/Vol] 11 mmol/L 7 - 17 mmol/L [facility] Chloride [Moles/Vol] 102 mmol/L 98 - 10 8 mmol/L [facility] CO2 [Moles/Vol] 28 mmol/L 21 - 31 mmol/L [facility] Creatinine [Mass/Vol] 0.81 mg/dL 0.50 - 1.20 mg/dL [facility] eGFR, CKD-EPI, Female 84 - PINF [facility] Glucose [Mass/Vol] 119 mg/dL 70 - 179 mg/dL [facility] Osmolality Calc [Osmolality] 286 [facility] Potassium [Moles/Vol] 4 mmol/L 3.5 - 5.0 mmol/L [facility] Sodium [Moles/Vol] 137 mmol/L 135 - 145 mmol/L [facility] Urea nitrogen [Mass/Vol] 7 mg/dL 7 - 25 mg/dL [facility] Urea nitrogen/Creatinine [Mass ratio] 9 mg/mg [facility] Anion gap [Moles/Vol] 11 mmol/L Normal 7-17 [facility] Comment on above: Performed By: #### CLOTILDE PUGA ####[facility] (DEFAULT)[address] [place] [address] Chloride [Moles/Vol] 102 mmol/L Normal 98-[address] [facility] Comment on above: Performed By: #### CLOTILDE PUGA ####[facility] (DEFAULT)[address] [place] [address] CO2 [Moles/Vol] 28 mmol/L Normal 21-31 [facility] Comment on above: Performed By: #### CLOTILDE PUGA ####[facility] (DEFAULT)[address] [place] [address] Creatinine [Mass/Vol] 0.81 mg/dL Normal 0.50-1.20 [facility] Comment on above: Performed By: #### CLARISSA PUGA7 ####[facility] (DEFAULT)[address] [place] [address] GFR/1.73 sq M.predicted among non-blacks MDRD (S/P/Bld) [Vol rate/Area] 84 mL/min/{1.73_m2} Normal >=[address] [facility] Comment on above: Result Comment: Repo rted eGFR is based on the CKD-EPI 2020 equation using creatinine, age, and sex. Performed By: #### CLARISSA PUGA7 ####[facility] (DEFAULT)[address] [place] [address] Glucose [Mass/Vol] 119 mg/dL Normal Nonfastin -179 mg/dL; Fastin-[address] [facility] Comment on above: Performed By: #### CLARISSA PUGA7 ####[facility] (DEFAULT)[address] [facility] [place] [address] Osmolality [Osmolality] 286 mosm/kg Normal 278-[address] [facility] Comment on above: Performed By: #### CLOTILDE PUGA ####[facility] (DEFAULT)[address] [facility] [place] [address] Potassium [Moles/Vol] 4.0 mmol/L Normal 3.5-5.0 [facility] Comment on above: Performed By: #### CLOTILDE PUGA ####[facility] (DEFAULT)[address] [place] [address] Sodium [Moles/Vol] 137 mmol/L Normal 135-145 [facility] Comment on above: Performed By: #### CLARISSA PUGA7 ####[facility] (DEFAULT)[address] [place] [address] Urea nitrogen [Mass/Vol] 7 mg/dL Normal 7-[address] [facility] Comment on above: Performed By: #### CLARISSA PUGA7 ####[facility] (DEFAULT)[address] [place] [address] Urea nitrogen/Creatinine [Mass ratio] 9 mg/mg Normal [facility] Comment on above: Performed By: #### CLOTILDE PUGA ####[facility] (DEFAULT)[address] [place] [address] GLUCOSE POCon 01-06-2025 Glucose [Mass/Vol] 227 mg/dL High 70 - 179 mg/dL [facility] Interpretation and review of laboratory results Abnormal [facility] POC Sample Type CAPBL [facility] Glucose [Mass/Vol] 193 mg/dL High 70 - 179 mg/dL [facility] Interpretation and review of laboratory results Abnormal [facility] Glucose [Mass/Vol] 184 mg/dL High 70 - 179 mg/dL [facility] Interpretation and review of laboratory results Abnormal [facility] POC Sample [facility] Glucose [Mass/Vol] 125 mg/dL 70 - 179 mg/dL [facility] POC Sample Type [facility] Glucose [Mass/Vol] 155 mg/dL 70 - 179 mg/dL [facility] POC [facility] Glucose [Mass/Vol] 147 mg/dL 70 - 179 mg/dL [facility]OC [facility] Glucose [Mass/Vol] 113 mg/dL 70 - 179 mg/dL [facility] POC [facility] TUBERCULOSIS BY QUANTIFERO N, Jian 01-06-2025 M. tuberculosis tuberculin stim IFN-g Ql (Bld) Negative Negative [facility] M. tuberculosis tuberculin stim IFN-g/Mitogen stimulated gamma interferon Qn (Bld control) 0 IU/mL [facility] M. tuberculosis tuberculin stim IFN-g/Mitogen stimulated gamma interferon Qn (Bld control) 0.01 IU/mL [facility] M. tuberculosis tuberculin stim IFN-g/Mitogen stimulated gamma interferon Qn (Bld control) 9.97 IU/mL [facility] M. tuberculosis tuberculin stim IFN-g/Mitogen stimulated gamma interferon Qn (Bld control) 0.03 IU/mL [facility] MAGNESIUMon 01-06-2025 Interpretation and review of laboratory results Normal [facility] Magnesium [Mass/Vol] 2.1 mg/dL 1.6 - 2 .6 mg/dL [facility] Magnesium [Mass/Vol] 2.1 mg/dL Normal 1.6-2.[address] [facility] Comment on above: Performed By: #### M CLARISSA CHANG7 ####[facility] (DEFAULT)[address] [place] [address] MR Brain WO and W contrast I Von 01-06-2025 RADIOLOGY RADIOLOGY [facility] MR Brain WO and W contrast I VOrdered By: Karthik To on 01-06-2025 [facility] Work Phone: MRI BRAIN WITH AND WITHOUT C ONTRASTon 01-06-2025 MRI BRAIN WITH AND WITHOUT CONTRAST Normal [facility] No Panel Informationon 01-06 [facility] OLIGOCLONAL BANDS, CSF AND S ERUMon 01-06-2025 Oligoclonal Bands Interpretation, CSF 0 NINF [facility] Oligoclonal bands Isoelectric focusing (CSF) [#] 8 bands [facility] Oligoclonal Bands, Serum 8 bands [facility] ANGIOTENSIN CONVERTING ENZYM Anuel 01-05-2025 Angiotensin converting enzyme [Catalytic activity/Vol] 87 U/L 19 - 123 U/L [facility] Interpretation and review of laboratory results Normal [facility] Angiotensin converting enzyme [Catalytic activity/Vol] 87 U/L Normal 19-[address] [facility] Comment on above: Performed By: #### Y BLAIRE ####[facility] (DEFAULT)[address] [place] [address] Bacteria identified Cx Nom ( Bld)on 01-05-2025 Bacteria identified Cx Nom (Unsp spec) NO GROWTH DAY 5 OF 5 [facility] Bacteria identified Cx Nom (Unsp spec) NO GROWTH DAY 5 OF 5 [facility] CBC AND ELECTRONIC DIFFon Basophils (Bld) [#/Vol] 0.06 10*3/uL 0.00 - 0.15 K/uL [facility] Basophils/100 WBC (Bld) 0.8 % [facility] Differential cell count method Nom (Bld) Electronic Differential O [facility] Eosinophils (Bld) [#/Vol] 0.17 10*3/uL 0.00 - 0.42 K/uL [facility] Eosinophils/100 WBC (Bld) 2.3 % [facility] Erythrocyte distribution width (RBC) [Ratio] 14.4 % 10.8 - 14.9 % [facility] Hematocrit (Bld) [Volume fraction] 29.9 % Low 34.9 - 44.3 % [facility] Hemoglobin (Bld) [Mass/Vol] 9.4 g/dL Low 11.4 - 15.2 g/dL [facility] Immature granulocytes (Bld) [#/Vol] 0.04 10*3/uL NINF - 0.08 K/uL [facility] Immature granulocytes/100 WBC (Bld) 0.5 % [facility] Interpretation and review of laboratory results Abnormal [facility] Lymphocytes (Bld) [#/Vol] 2.03 10*3/uL 1.16 - 3.51 K/uL [facility] Lymphocytes/100 WBC (Bld) 27.9 % [facility] MCH (RBC) [Entitic mass] 28.6 pg 25.9 - 33.9 pg [facility] MCHC (RBC) [Mass/Vol] 31.4 g/dL 31.4 - 35.9 g/dL [facility] MCV (RBC) [Entitic vol] 90.9 fL 79.6 - 97.7 fL [facility] Monocytes (Bld) [#/Vol] 0.54 10*3/uL 0.22 - 0.87 K/uL [facility] Monocytes/100 WBC (Bld) 7.4 % [facility] Neutrophils (Bld) [#/Vol] 4.44 10*3/uL 1.64 - 7.28 K/uL [facility] Nucleated RBC/100 WBC (Bld) [Ratio] 0 % NINF [facility] Platelet mean volume (Bld) [Entitic vol] 9.9 fL 8.5 - 12.2 fL [facility] Platelets (Bld) [#/Vol] 277 10*3/uL 150 - 393 K/uL [facility] RBC (Bld) [#/Vol] 3.29 10*6/uL Low [facility] Segmented neutrophils/100 WBC (Bld) 61.1 % [facility] WBC (Bld) [#/Vol] 7.28 10*3/uL 3.99 - 11. 19 K/uL [facility] Basophils (Bld) [#/Vol] 0.06 10*3/uL Normal 0.00-0.[address] [facility] Comment on above: Performed By: #### L [id number] ####[facility] (DEFAULT)[address] [place] [address] Basophils/100 WBC (Bld) 0.8 % Normal [facility] Comment on above: Performed By: #### L [id number] ####[facility] (DEFAULT)[address] [place] [address] DIFF STATUS Electronic Differential Normal [facility] Comment on above: Performed By: #### L [id number] ####[facility] (DEFAULT)[address] [facility] [place] [address] Eosinophils (Bld) [#/Vol] 0.17 10*3/uL Normal 0.00-0.[address] [facility] Comment on above: Performed By: #### L [id number] ####[facility] (DEFAULT)[address] [place] [address] Eosinophils/100 WBC (Bld) 2.3 % Normal [facility] Comment on above: Performed By: #### L [id number] ####[facility] (DEFAULT)[address] [place] [address] Hematocrit (Bld) [Volume fraction] 29.9 % Low 34.9-44.[address] [facility] Comment on above: Performed By: #### L [id number] ####[facility] (DEFAULT)[address] [place] [address] Hemoglobin (Bld) [Mass/Vol] 9.4 g/dL Low 11.4-15.[address] [facility] Comment on above: Performed By: #### L [id number] ####[facility] (DEFAULT)[address] [place] [address] Immature Grans % 0.5 % Normal [facility] Comment on above: Performed By: #### L [id number] ####[facility] (DEFAULT)[address] [place] [address] Immature Grans Absolute 0.04 K/uL Normal <=0.[address] [facility] Comment on above: Performed By: #### L [id number] ####[facility] (DEFAULT)[address] [place] [address] Lymphocytes (Bld) [#/Vol] 2.03 10*3/uL Normal 1.16-3.[address] [facility] Comment on above: Performed By: #### L [id number] ####[facility] (DEFAULT)[address] [place] [address] Lymphocytes/100 WBC (Bld) 27.9 % Normal [facility] Comment on above: Performed By: #### L [id number] ####[facility] (DEFAULT)[address] [place] [address] MCV (RBC) [Entitic vol] 90.9 fL Normal 79.6-97.[address] [facility] Comment on above: Performed By: #### L [id number] ####[facility] (DEFAULT)[address] [place] [address] Mean Cell Hgb 28.6 pg Normal 25.9-33.[address] [facility] Comment on above: Performed By: #### L [id number] ####[facility] (DEFAULT)[address] [place] [place] [address] Mean Cell Hgb Conc 31.4 g/dL Normal 31.4-35.9 [facility] Comment on above: Performed By: #### L [id number] ####[facility] (DEFAULT)[address] [place] [address] Monocytes (Bld) [#/Vol] 0.54 10*3/uL Normal 0.22-0.[address] [facility] Comment on above: Performed By: #### L [id number] ####[facility] (DEFAULT)[address] [place] [address] Monocytes/100 WBC (Bld) 7.4 % Normal [facility] Comment on above: Performed By: #### L [id number] ####[facility] (DEFAULT)[address] [place] [address] Nucleated RBC 0.0 /100 WBC Normal <=0.2 [facility] Comment on above: Performed By: #### L [id number] ####[facility] (DEFAULT)[address] [place] [address] Platelet mean volume (Bld) [Entitic vol] 9.9 fL Normal 8.5-12.[address] [facility] Comment on above: Performed By: #### L [id number] ####[facility] (DEFAULT)[address] [place] [address] Platelets (Bld) [#/Vol] 277 10*3/uL Normal 150-[address] [facility] Comment on above: Performed By: #### L [id number] ####[facility] (DEFAULT)[address] [place] [address] RBC (Bld) [#/Vol] 3.29 10*6/uL Low 3.91-5.[address] [facility] Comment on above: Performed By: #### L [id number] ####[facility] (DEFAULT)[address] [place] [address] RBC Distribution 14.4 % Normal 10.8-14.9 [facility] Comment on above: Performed By: #### L [id number] ####[facility] (DEFAULT)[address] [place] [address] Segs + Bands Auto 61.1 % Normal [facility] Comment on above: Performed By: #### L [id number] ####[facility] (DEFAULT)[address] [place] [address] Segs + Bands,Absolute Auto 4.44 K/uL Normal 1.64-7.[address] [facility] Comment on above: Performed By: #### L [id number] ####[facility] (DEFAULT)[address] [place] [address] WBC (Bld) [#/Vol] 7.28 10*3/uL Normal 3.99-11.[address] [facility] Comment on above: Performed By: #### L [id number] ####[facility] (DEFAULT)[address] [place] [address] CHEM 7 (LYTES,BUN,CREA,GLUC) on 01-05-2025 Anion gap [Moles/Vol] 14 mmol/L 7 - 17 mmol/L [facility] Chloride [Moles/Vol] 102 mmol/L 98 - 10 8 mmol/L [facility] CO2 [Moles/Vol] 26 mmol/L 21 - 31 mmol/L [facility] Creatinine [Mass/Vol] 0.87 mg/dL 0.50 - 1.20 mg/dL [facility] eGFR, CKD-EPI, Female 77 - [facility] Glucose [Mass/Vol] 162 mg/dL 70 - 179 mg/dL [facility] Osmolality Calc [Osmolality] 291 [facility] Potassium [Moles/Vol] 4 mmol/L 3.5 - 5.0 mmol/L [facility] Sodium [Moles/Vol] 138 mmol/L 135 - 145 mmol/L [facility] Urea nitrogen [Mass/Vol] 7 mg/dL 7 - 25 mg/dL [facility] Urea nitrogen/Creatinine [Mass ratio] 8 mg/mg [facility] Anion gap [Moles/Vol] 14 mmol/L Normal 7-17 [facility] Comment on above: Performed By: #### Shanell CHANG CHM7 ####[facility] (DEFAULT)[address] [place] [address] Chloride [Moles/Vol] 102 mmol/L Normal 98-[address] [facility] Comment on above: Performed By: #### Shanell CHANG CHM7 ####[facility] (DEFAULT)[address] [place] [address] CO2 [Moles/Vol] 26 mmol/L Normal 21-31 [facility] Comment on above: Performed By: #### Shanell CHANG CHM7 ####[facility] (DEFAULT)[address] [place] [address] Creatinine [Mass/Vol] 0.87 mg/dL Normal 0.50-1.20 [facility] Comment on above: Performed By: #### Shanell CHANG CHM7 ####[facility] (DEFAULT)[address] [place] [address] GFR/1.73 sq M.predicted among non-blacks MDRD (S/P/Bld) [Vol rate/Area] 77 mL/min/{1.73_m2} Normal >=[address] [facility] Comment on above: Result Comment: Repo rted eGFR is based on the CKD-EPI 2020 equation using creatinine, age, and sex. Performed By: #### CLARISSA PUGA7 ####[facility] (DEFAULT)[address] [facility] [place] [address] Glucose [Mass/Vol] 162 mg/dL Normal Nonfastin -179 mg/dL; Fastin-[address] [facility] Comment on above: Performed By: #### CLARISSA PUGA7 ####[facility] (DEFAULT)[address] [place] [address] Osmolality [Osmolality] 291 mosm/kg Normal 278-[address] [facility] Comment on above: Performed By: #### CLARISSA PUGA7 ####[facility] (DEFAULT)[address] [place] [address] Potassium [Moles/Vol] 4.0 mmol/L Normal 3.5-5.0 [facility] Comment on above: Performed By: #### CLARISSA PUGA7 ####[facility] (DEFAULT)[address] [place] [address] Sodium [Moles/Vol] 138 mmol/L Normal 135-145 [facility] Comment on above: Performed By: #### CLARISSA PUGA7 ####[facility] (DEFAULT)[address] [facility] [place] [address] Urea nitrogen [Mass/Vol] 7 mg/dL Normal 7-[address] [facility] Comment on above: Performed By: #### CLARISSA PUGA7 ####[facility] (DEFAULT)[address] [place] [address] Urea nitrogen/Creatinine [Mass ratio] 8 mg/mg Normal [facility] Comment on above: Performed By: #### Shanell CHANG [facility] ####[facility] (DEFAULT)[address] [place] [address] CSF DIFFERENTIALOrdered By: Hang Guzman on 01-05-2025 Basophils/100 WBC Manual cnt (CSF) 0 % [facility] Work Phone: Cells Counted Total (CSF) [#] 100 [facility] Work Phone: Eosinophils/100 WBC Manual cnt (CSF) 0 % [facility] Work Phone: Interpretation and review of laboratory results Abnormal [facility] Work Phone: Lymphocytes/100 WBC Manual cnt (CSF) 86 % High 40 - 80 % [facility] Work Phone: Monocytes+Macrophages/ 100 WBC (CSF) 14 % Low 15 - 45 % [facility] Work Phone: Neutrophils/100 WBC Manual cnt (CSF) 0 % NINF - 6 % [facility] Work Phone: Pathologist review Barak (Unsp spec) [Interp] Hang Guzman MD [facility] Work Phone: Pathology report comments [Interpretation] Narrative o3frrIAmVQJshOEzPTLdMym ilhApEUCihPNjS2KypwqjZZ ryAR1xQW4mdWwqgJXjmKGoA CJtCtXbs2gfp240uRLwu4wt TJRMKWmhMJKQUZb8vXdyB13 ra0N0DftrK34ynXHhWTE9MP EoUJFtfIIlUDWsXSZ6EQEry PUcQ2yzUNFfZS0fxuveQOqb FLiyOKOpgMK8KKIrgBPbE7V sPWDcXWhyKIPicyo4BnAeZd 9vdGVyeTcyMFxwYXJkXHBsY WluXGZzMjAgVGhlcmUgaXMg iz0vNEVwERVvR3Pcr9EcjRC ovDygAS1olO6tWFbphkMekW Zyns2nXGHsLOXrX1Wpr8DmB U0kiC0pvKQggCA8k4N8JTEq f1PrelPpNrEScqMjizvkvaj suXMnq8Zgwy1zDBOhmj3= [facility] Work Phone: Tube number Nom (CSF) [ID] CSF TUBE 4 [facility] Work Phone: [facility] Work Phone: CYTOLOGY, NON-GYNOrdered By: Desmond Hernandez on 01-05-2025 CYTOLOGIC DIAGNOSIS y5fsqGBcVVSglCDsFFKuXam igmAtBFKtaFHhS2JhgibzLS veSK5aZV5ulWxbuVOgqWOuV HYbVhRqq4jhc429zFSoq2pt ZVXLknhojUx0s0wwMLLVpT5 ii6b9iS28CJSyuI4jyJXfFL kwdpDuFJwjbmJpirFxVke2V VD1eMtbIxnekUF2wAVogQM2 KGmgf8CbvPnnxWwsPSP4IDs lRyb4SSqxaTT2mSMdrNzxpY SxKQ2yz4xkdJC8woWyPAQ9j DsfaYX7gYbmxeiep3ajlLG0 iJN5LFbsuGA9SOqiEfDnO5a eQXNbbJ3pE64pZ7ndZSIatW bdUTbhEKApyGO3RTF7VNDgz 1xsZXZlbHRleHRcJzAxXCdi Qvf6u7eeKZNkmB70wZBkgcO 2jHfpILiahNF5YW31LSbno8 KfXJWjkHnfVXQrhE6iSoVfA GxldmVsbmZjbjIzXGxldmVs quSdXMraufWrc9CmfuRppVN 1XRgtoiKbcEH3zPlaPXScH7 E7D024VWzjapCdsmXpDjEsd nf2OUClrPoysYnlhCaaubEo QTcfpkXmuqDjIjOfeWM1IUa wDaQcTwWghUM3DPmxMhZamS X0XUnmfWYqvAE3KFtftTI9O Df3AVx4WZtpFHrgItv7eLtc dSL0BColuX9sZAKvL79oEjW 3j2rfyPC8jPB9PFbmhCT5RR uxSkZzI6iwXTMzbD1wR87lN 2rzXMFjkJigUHpkDVJotWM0 CKL7TEBvb8ikCAVybRBlpRC fSjJkVWylLhu1d5sdFLEemR 04gPJzyiX1iKkvCL49JTgyl 0VnTEFtgEpoGYXocE7mNfHb XGxldmVsbmZjbjIzXGxldmV mrsXpYVxhghZta6XmqiQuaJ B4PKypqgWkmJV1dScpWXDhR 0F5K357SGnieiDgqeZvEkQe lzn5XBSxpAssaLosjWnhqoH mVEluyuNqwpAaVbYkgKX5SR xqNqWrVrZaiEB3BJaiPhLzh AS1RLrlqLZaxEG7XDczmMB8 QEy0WOt8SExaDMkrOvx3eLn cfXA6JSfczJ6kBSRyK74pEs O5s0nczCI9qWE9ELywjPU7R IhhPyZxE7vlTQZqzK7jC27i K6idRECsvZmoQPvsZLAhyDY 4GQF3IXNgq1wtTAMhyZLvdA FbLeLdGVoaNiw1c1ybVKGtm G23wSDdjbP3mTqgEW94DYfh i2UgRNQcqYoaKSNefR0mQkM zXGxldmVsbmZjbjIzXGxldm VbtzApNXwjkyAqh5RxczUgs QZ2GEwizjPbjTT9dKfzNMRr C9K9B614JHibhmHszgXfRkP lqyy4EMZppIbvkYswgAnobb CkQYeyofYodsJjEhQnzUO1N KcxBoBfAhIlwQQ9RZxmKeMo iHB9ZOlbbFJucXQ9HJewnDI 4NHt0UXy3JUknFCheZzm2gO biqEN1PKnvzG3uMSOhC25wY tJ0oN08BXsvzJbjmN86KTJz mPCbqDCqwXE3EUywpJtktZ0 4JROmmZPcKCpjv4JfPZTcWg J3QDN1WmHnkBkdjP81FTByt JTyO641qdSuXJksXT17CNZt cGVydzEyMjQwXHBhcGVyaDE 3XFUnWP8kfypjPCwtZPqeCR IxpyG9PAAlzMXrB3FwCPXtN F3lwtmoLDL9IGpgGXRwAPS0 JuAjMPOqj3Ykqay7KfFkcCu 4b6tpSVQfHCBgyRlkm6iyGK C1WINocSObX7gmyG0yWPFeM U3phpljm2fbNHndGIroNSQj oMW2atS3RAJpcSCjI4UojR8 mTLXiNLXcpjCmoNcaeX9bGm xmczIyXGNmMSBBLiBDRVJFQ cRTV8WQNtLCYWWDOSiRFWjs RbHzDXOHRX2GV5yNWYyjH2J xICBccGFyXGIwXGNmMFxwYX JcYlxjZjEgRklOQUwgRElBR 85JV6vJCrrqZKNblKpcJtRi bHMxXGlsdmwwXHBsYWluXGJ sEwYsBksuTmVcDx2hFDZjmO xbMI91WLBmcOenOMZuBAKQK GVudGlmaWVkXGIwXGNmMCAg PIAuQ7IzNBEcstkkpEZgeVP wXGIwXGNmMFxwYXJ9 [facility] Work Phone: Case Report [facility] Work Phone: Clinical History e3wovONkFILmkLImQmLa MDA vWOZqm0smGHQctNDfTxXcUr NcZnRuYmpcdWMxXGRlZmYwe 3jff394eBYus3lyNPMjLrK4 iFSaWRIykVEiN296TRRfHIp yg3akl5LuIKZcaDSjq7O7GR KSctbknEa4tMurI92ek0U1M hobN4gdAKLtTZQkR5YgPS4f KGGkSjk7DKZ4AMQ0JVOfQGF tU6JuYC8bESItoAHuEYa6z0 mnkVnfQQBtJKN1o8zfSHlfd cXqUT0wdo6kaXs7q3pghwRb IWFiMNJsbPMOPHZrA3UnmUv aOn9ecHk7wEmuRrhoEQL9Eu f2WZ1tov28kcf6kCnsBEZju wpaTbS0XZddGGFfqflcWVa3 OPaoYBUjaVY8HHGhaQEkC5P rEBSiPN8hymg3UXG7VFsxSZ WgArA5ESWzmDRdYSCwwVnnN Wxrr445FHI8VlFgUV9tO1Il r0W8aW1qdXWxWLOidFQyPqW cEZMffn9ywWUxRWviy7FoXO P6pfP7zCLxjAQbFIWvSD97E hyac3AaHyphDCL2JREhgeWy b8Uew6qxEqYaupYmG8qsC9A yZHJoZWFkXHBnYnJkcmZvb3 Uzv5PcpRPssRp2r7xlNKLoA VCatYoun0xiPBT2DODiO9Z9 bPIth0lpBInwZAAwxTA4lcM 0CQPmhRThH3BxpI5gGMDvBG 6eikv0t3nyJLH2BTvbZHHlQ gM7sbC8PAIwuDSvDMYoyMdb NLaxp957VBS5DtJpJCQty1I jQ5IsuIugE69cjIvcI91tEK RglVsbpA2baJrvbG5rOsKmQ nMyNFxxbFxwbGFpblxmMVxm gwExNYvbrowlXIWhNWdsK0x eVaFgFPXnhMmnBYydi4KqHY YxXGNmMlxmczIwIHIvbyBpb nYyeZkkbjY2ohRaNZedS42m mrM3CrTnyELcvM== [facility] Work Phone: For Immediate Release to Patient's MyChart? Yes Yes [facility] Work Phone: Gross Description x6lboJFbAPLxmVRkROTf Nlx hylSyBRUbcNFxW8FoxczvIT tkUO5sFB5ubMfbvAOzbTSbZ WDoTgSju7dmx935xPTqa0hb TTOHsszsoIa6zWlfP95wz9F 1GarxS84dcRYeTWO5OVOrTU XhwTEyZSMxSHM1EKHfqXIdR 1voRDDkHH6kimajUVbwHBub HDEkwAR5TIOenKVnP5JpCKE zBNazABGdmtl2LdIoQo7kqC VyeTcyMFxwYXJkXHBsYWluX DOqUnLrX1UFSURcymK8FZYy KSZrFIMlCUYzfN4xgERyqaI xtGFbhA3nsCewKQjfHMPvUa WjnKWhs9JxvjXxeBjqFTPOd uxmlWQjk0UehO1rwBFdmD== [facility] Work Phone: Professional Interpretation Performed at: [facility] Work Phone: Comment on above: j0lvwYOlEDDpb7gbBFSidHYdDtGfSvLxUgCvWqpbqVEyRVybffBhIEvpv2FiA5T mCzIsOKhwytClBIZiAhpiqpfvDGUzIKF9wbSpWMWsYAixFEBiTCodSv1lpCDebH goTbVsCJOux4xrijZHpgqmhGu2q2pmXCLdDqQ9qMAoATvuC2hjxeVgwYEdLPCxZ Pp5pJ71TVVosU3fkMVzHKkdooEiXwZ6LSouFDVeIjK0LWFblBBgTQKjE1gkRVWs WXwaCUXyAJgjzHFgEWA3nWcaa9F3xOFzwNIzhByhNeTaNwJoZyJPu6FjQEe8fNz xZ9KbBYGcEjV3dXRoNJRmYYjvMDEfRVCmpaZ8sB86JBcsdvY2iDOra6Ezb53hh0 68uA3rwCJtVBP8MQEgQIOzsYVuQKUcHXE3LFEhlEGhC8adGUTuEY0rdylaFXejI WspXSLsfNS1GBBfyXRxZ1JrDXUhIShxLYVzxjv5NkFjFq9ofOPrwGmmUKkvl8ku f2yscTCkUgs4ZIOsLyNoRkbjIEuqq7Qbb1osHLZsni3zPCO8xBTzfOaei6U0xED hOSNcmKUhluKiZGScKwZ1KQvcQD8mtq06CGCbAFT6lj5ukMGpaKesweQntUPfNK jzJ2HuGOMuu942FYWvG2FwWCEli4Y2hwLzJkCfPKJicRS8xkX4LFTvTSy8kQQrl tS3rsYbhOAsK3ksvL6tTVXaJS4lhvyby6ifLNktQAswZNMfcJH6pmP7QIGcpVFy G7DioV0pQQWePRseFJZsinc2BbWwEt0qbYRwwOlpZRmyHphuEFsvMSGofwTqyqC ccGduZGVjXHBsYWluXHBsYWluXGYwXGZzMjRccGFyZFxwbGFpblxmMVxmczIyXG uzvandEOIoBHbbR5ezNkAbTCNywRzuRJpaf7EkFFMcTNUtFnRnL4LMPErIDA8DS eATGPJCO3VZLYBGFeEGRwBDCYzQXZQGVFFLCWKAWrSIU6NVPLAeadY7ULDnI6Sd bBIfGNSaBQK0IPujMDBlA27vvD8osBYmBE7saM3xUTSyWMYtaKXfsRbsjtCmDOd gxhEdTGOjPrlkirwwMIMwKIR9wyAbw1oyf644xGKth2sqDANjTs4lCSGvroGkIq GdKNEtZTPmVYAjuMLdY543YWGxVDzvCAXeMMFfLfBbbK8= [facility] Work Phone: GLUCOSE POCon 01-05-2025 Glucose [Mass/Vol] 140 mg/dL 70 - 179 mg/dL [facility]OC [facility] Glucose [Mass/Vol] 227 mg/dL High 70 - 179 mg/dL [facility] Interpretation and review of laboratory results Abnormal [facility] POC Sample Type CAPBL [facility] INTERLEUKIN 2 RECEPTORon INTERLEUKIN 2 RECEPTOR (IL2R) 1183 pg/mL High <=[address] [facility] Comment on above: Result Comment: ---- ADDITIONAL INFORMATION This test was developed and its performance characteristicsdetermined by [facility] in a manner consistent with CLIArequirements. This test has not been cleared or approved bythe U.S. Food and Drug Administration.Test Performed by:[facility] - [address] [address] Director: Jennifer Robles Ph.D.; CLIA# [id number] Performed By: #### I L2R ####[facility] (DEFAULT)[address] [address] LYSOZYME (MURAMIDASE)on 12-14 LYSOZYME (MURAMIDASE) 5.4 mcg/mL Normal 2.6-6.0 [facility] Comment on above: Result Comment: ---- ADDITIONAL INFORMATION This test was developed and its performance characteristicsdetermined by [facility] in a manner consistent withCLIA requirements. This test has not been cleared orapproved by the U.S. Food and Drug Administration.Test Performed by:[facility] - [address] [address] Director: Jennifer Robles Ph.D.; CLIA# [id number] Performed By: #### Y LYSO ####[facility] (DEFAULT)[address] [address] M TUBERCULOSIS BY Jian SOUSA 01-05-2025 M. TB Mitogen-Nil 9.97 IU/mL Normal [facility] Comment on above: Order Comment: The M . Tuberculosis antigen levels cannot be correlated to stage or degree of infection, response to therapy or likelihood for progression to active disease. Results from QuantiFERON TB Gold Plus must be used in conjunction with individual epidemiological history, current medical status, and results of other diagnostic evaluation. Performed By: #### Q FTB ####[facility] (DEFAULT)[address] [place] [address] M. TB Nil 0.03 IU/mL Normal [facility] Comment on above: Order Comment: The M . Tuberculosis antigen levels cannot be correlated to stage or degree of infection, response to therapy or likelihood for progression to active disease. Results from QuantiFERON TB Gold Plus must be used in conjunction with individual epidemiological history, current medical status, and results of other diagnostic evaluation. Performed By: #### Q FTB ####[facility] (DEFAULT)[address] [place] [address] M. TB TB1-Nil 0.00 IU/mL Normal [facility] Comment on above: Order Comment: The M . Tuberculosis antigen levels cannot be correlated to stage or degree of infection, response to therapy or likelihood for progression to active disease. Results from QuantiFERON TB Gold Plus must be used in conjunction with individual epidemiological history, current medical status, and results of other diagnostic evaluation. Performed By: #### Q FTB ####[facility] (DEFAULT)[address] [place] [id number] M. TB TB2-Nil 0.01 IU/mL Normal [facility] Comment on above: Order Comment: The M . Tuberculosis antigen levels cannot be correlated to stage or degree of infection, response to therapy or likelihood for progression to active disease. Results from QuantiFERON TB Gold Plus must be used in conjunction with individual epidemiological history, current medical status, and results of other diagnostic evaluation. Performed By: #### Q FTB ####[facility] (DEFAULT)[address] [place] [id number] M. Tuberculosis by Quantiferon in tube Negative Normal Negative [facility] Comment on above: Order Comment: The M . Tuberculosis antigen levels cannot be correlated to stage or degree of infection, response to therapy or likelihood for progression to active disease. Results from QuantiFERON TB Gold Plus must be used in conjunction with individual epidemiological history, current medical status, and results of other diagnostic evaluation. Performed By: #### Q FTB ####[facility] (DEFAULT)[address] [place] [address] MAGNESIUMon 01-05-2025 Interpretation and review of laboratory results Normal [facility] Magnesium [Mass/Vol] 2.2 mg/dL 1.6 - 2 .6 mg/dL [facility] Magnesium [Mass/Vol] 2.2 mg/dL Normal 1.6-2.[address] [facility] Comment on above: Performed By: #### M CLOTILDE CHANG ####[facility] (DEFAULT)[address] [place] [address] MR Brain WO and W contrast I Von 01-05-2025 Radiology Study observation (narrative) [facility] No Panel Informationon 01-05 [facility] ACID FAST CULTUREon 01-05-20 Bacteria identified Cx Nom (Unsp spec) NO GROWTH DAY 42 OF 42 Normal [facility] Comment on above: Performed By: #### A FB ####[facility] (DEFAULT)[address] [place] [id number] Fluorochrome Stain No acid Fast Bacillu s Seen Normal [facility] Comment on above: Performed By: #### A FB ####[facility] (DEFAULT)[address] [place] [id number] NADINE MULTIPLEX SCRN WITH REFL EXon 01-04-2025 Interpretation and review of laboratory results Normal [facility] Nuclear Ab Ql (S) Negative Negative [facility] BLOOD CULTUREon 01-04-2025 Bacteria identified Cx Nom (Unsp spec) NO GROWTH DAY 5 OF [address] [facility] Comment on above: Order Comment: 2 Bot tles (1 Set - consists of 1 Aerobic bottle and 1 Anaerobic bottle) -1st Peripheral DrawFor vacutainer method draw: Fill aerobic bottle first, then anaerobic Performed By: #### B LDCULT ####[facility] (DEFAULT)[address] [place] [address] BODY FLUID CULTURE AND DIREC T SMEARon 01-04-2025 Bacteria identified Cx Nom (Unsp spec) NO GROWTH DAY 2 OF [address] [facility] Comment on above: Performed By: #### B FLD ####[facility] (DEFAULT)[address] [place] [address] Microscopic observation Gram stain Nom (Unsp spec) Normal [facility] Comment on above: Result Comment: Cyto centrifuge preparationNeutrophils, NoneRed Blood Cells PresentNo organisms seen Performed By: #### B FLD ####[facility] (DEFAULT)[address] [place] [address] Bacteria identified Cx Nom ( Bld)on 01-04-2025 Bacteria identified Cx Nom (Unsp spec) Growth [facility] Bacteria identified Cx Nom (Unsp spec) METHICILLIN RESISTANT STAPHYLOCOCCUS AUREUS Abnormal [facility] Interpretation and review of laboratory results Abnormal [facility] Bacteria identified Cx Nom ( Bld)Ordered By: Ivan Smith on 01-04-2025 Bacteria identified Cx Nom (Unsp spec) Growth [facility] Bacteria identified Cx Nom (Unsp spec) METHICILLIN RESISTANT STAPHYLOCOCCUS AUREUS Abnormal [facility] Interpretation and review of laboratory results Abnormal [facility] CBC AND ELECTRONIC DIFFon Basophils (Bld) [#/Vol] 0.05 10*3/uL 0.00 - 0.15 K/uL [facility] Basophils/100 WBC (Bld) 0.6 % [facility] Differential cell count method Nom (Bld) Electronic Differential O [facility] Eosinophils (Bld) [#/Vol] 0.14 10*3/uL 0.00 - 0.42 K/uL [facility] Eosinophils/100 WBC (Bld) 1.8 % [facility] Erythrocyte distribution width (RBC) [Ratio] 14.6 % 10.8 - 14.9 % [facility] Hematocrit (Bld) [Volume fraction] 29.7 % Low 34.9 - 44.3 % [facility] Hemoglobin (Bld) [Mass/Vol] 9.3 g/dL Low 11.4 - 15.2 g/dL [facility] Immature granulocytes (Bld) [#/Vol] 0.05 10*3/uL NINF - 0.08 K/uL [facility] Immature granulocytes/100 WBC (Bld) 0.6 % [facility] Interpretation and review of laboratory results Abnormal [facility] Lymphocytes (Bld) [#/Vol] 1.9 10*3/uL 1.16 - 3.51 K/uL [facility] Lymphocytes/100 WBC (Bld) 24.6 % [facility] MCH (RBC) [Entitic mass] 28.1 pg 25.9 - 33.9 pg [facility] MCHC (RBC) [Mass/Vol] 31.3 g/dL Low 31.4 - 35.9 g/dL [facility] MCV (RBC) [Entitic vol] 89.7 fL 79.6 - 97.7 fL [facility] Monocytes (Bld) [#/Vol] 0.55 10*3/uL 0.22 - 0.87 K/uL [facility] Monocytes/100 WBC (Bld) 7.1 % [facility] Neutrophils (Bld) [#/Vol] 5.04 10*3/uL 1.64 - 7.28 K/uL [facility] Nucleated RBC/100 WBC (Bld) [Ratio] 0 % [facility] Platelet mean volume (Bld) [Entitic vol] 9.9 fL 8.5 - 12.2 fL [facility] Platelets (Bld) [#/Vol] 256 10*3/uL 150 - 393 K/uL [facility] RBC (Bld) [#/Vol] 3.31 10*6/uL Low [facility] Segmented neutrophils/100 WBC (Bld) 65.3 % [facility] WBC (Bld) [#/Vol] 7.73 10*3/uL 3.99 - 11. 19 K/uL [facility] Basophils (Bld) [#/Vol] 0.05 10*3/uL Normal 0.00-0.[address] [facility] Comment on above: Performed By: #### L [id number] ####[facility] (DEFAULT)[address] [place] [address] Basophils/100 WBC (Bld) 0.6 % Normal [facility] Comment on above: Performed By: #### L [id number] ####[facility] (DEFAULT)[address] [facility] [place] [address] DIFF STATUS Electronic Differential Normal [facility] Comment on above: Performed By: #### L [id number] ####[facility] (DEFAULT)[address] [place] [address] Eosinophils (Bld) [#/Vol] 0.14 10*3/uL Normal 0.00-0.[address] [facility] Comment on above: Performed By: #### L [id number] ####[facility] (DEFAULT)[address] [place] [address] Eosinophils/100 WBC (Bld) 1.8 % Normal [facility] Comment on above: Performed By: #### L [id number] ####[facility] (DEFAULT)[address] [place] [address] Hematocrit (Bld) [Volume fraction] 29.7 % Low 34.9-44.[address] [facility] Comment on above: Performed By: #### L [id number] ####[facility] (DEFAULT)[address] [place] [address] Hemoglobin (Bld) [Mass/Vol] 9.3 g/dL Low 11.4-15.[address] [facility] Comment on above: Performed By: #### L [id number] ####[facility] (DEFAULT)[address] [facility] [address] Immature Grans % 0.6 % Normal [facility] Comment on above: Performed By: #### L [id number] ####[facility] (DEFAULT)[address] [facility] [address] Immature Grans Absolute 0.05 K/uL Normal <=0.[address] [facility] Comment on above: Performed By: #### L [id number] ####[facility] (DEFAULT)[address] [place] [address] Lymphocytes (Bld) [#/Vol] 1.90 10*3/uL Normal 1.16-3.[address] [facility] Comment on above: Performed By: #### L AB980 ####[facility] (DEFAULT)[address] [place] [address] Lymphocytes/100 WBC (Bld) 24.6 % Normal [facility] Comment on above: Performed By: #### L AB980 ####[facility] (DEFAULT)[address] [place] [address] MCV (RBC) [Entitic vol] 89.7 fL Normal 79.6-97.[address] [facility] Comment on above: Performed By: #### L [id number] ####[facility] (DEFAULT)[address] [place] [address] Mean Cell Hgb 28.1 pg Normal 25.9-33.[address] [facility] Comment on above: Performed By: #### L AB980 ####[facility] (DEFAULT)[address] [place] [address] Mean Cell Hgb Conc 31.3 g/dL Low 31.4-35.9 [facility] Comment on above: Performed By: #### L AB980 ####[facility] (DEFAULT)[address] [place] [address] Monocytes (Bld) [#/Vol] 0.55 10*3/uL Normal 0.22-0.[address] [facility] Comment on above: Performed By: #### L [id number] ####[facility] (DEFAULT)[address] [place] [address] Monocytes/100 WBC (Bld) 7.1 % Normal [facility] Comment on above: Performed By: #### L [id number] ####[facility] (DEFAULT)[address] [place] [address] Nucleated RBC 0.0 /100 WBC Normal <=0.2 [facility] Comment on above: Performed By: #### L AB980 ####[facility] (DEFAULT)[address] [place] [address] Platelet mean volume (Bld) [Entitic vol] 9.9 fL Normal 8.5-12.[address] [facility] Comment on above: Performed By: #### L [id number] ####[facility] (DEFAULT)[address] [place] [address] Platelets (Bld) [#/Vol] 256 10*3/uL Normal 150-[address] [facility] Comment on above: Performed By: #### L [id number] ####[facility] (DEFAULT)[address] [place] [address] RBC (Bld) [#/Vol] 3.31 10*6/uL Low 3.91-5.[address] [facility] Comment on above: Performed By: #### L AB980 ####[facility] (DEFAULT)[address] [place] [address] RBC Distribution 14.6 % Normal 10.8-14.9 [facility] Comment on above: Performed By: #### L AB980 ####[facility] (DEFAULT)[address] [place] [address] Segs + Bands Auto 65.3 % Normal [facility] Comment on above: Performed By: #### L AB980 ####[facility] (DEFAULT)[address] [place] [address] Segs + Bands,Absolute Auto 5.04 K/uL Normal 1.64-7.[address] [facility] Comment on above: Performed By: #### L AB980 ####[facility] (DEFAULT)[address] [place] [address] WBC (Bld) [#/Vol] 7.73 10*3/uL Normal 3.99-11.[address] [facility] Comment on above: Performed By: #### L AB980 ####[facility] (DEFAULT)[address] [place] [address] CHEM 7 (LYTES,BUN,CREA,GLUC) on 01-04-2025 Anion gap [Moles/Vol] 13 mmol/L 7 - 17 mmol/L [facility] Chloride [Moles/Vol] 102 mmol/L 98 - 10 8 mmol/L [facility] CO2 [Moles/Vol] 26 mmol/L 21 - 31 mmol/L [facility] Creatinine [Mass/Vol] 0.8 mg/dL 0.50 - 1.20 mg/dL [facility] eGFR, CKD-EPI, Female 85 - PINF [facility] Glucose [Mass/Vol] 128 mg/dL 70 - 179 mg/dL [facility] Osmolality Calc [Osmolality] 287 [facility] Potassium [Moles/Vol] 4.3 mmol/L 3.5 - 5.0 mmol/L [facility] Sodium [Moles/Vol] 137 mmol/L 135 - 145 mmol/L [facility] Urea nitrogen [Mass/Vol] 7 mg/dL 7 - 25 mg/dL [facility] Urea nitrogen/Creatinine [Mass ratio] 9 mg/mg [facility] Anion gap [Moles/Vol] 13 mmol/L Normal 7-[address] [facility] Comment on above: Performed By: #### M CHARLENE, CHM7 ####[facility] (DEFAULT)[address] [place] [address] Chloride [Moles/Vol] 102 mmol/L Normal 98-[address] [facility] Comment on above: Performed By: #### CLOTILDE PUGA ####[facility] (DEFAULT)[address] [place] [address] CO2 [Moles/Vol] 26 mmol/L Normal 21-31 [facility] Comment on above: Performed By: #### CLARISSA PUGA7 ####[facility] (DEFAULT)[address] [place] [address] Creatinine [Mass/Vol] 0.80 mg/dL Normal 0.50-1.20 [facility] Comment on above: Performed By: #### CLARISSA PUGA7 ####[facility] (DEFAULT)[address] [place] [address], [place] [address] GFR/1.73 sq M.predicted among non-blacks MDRD (S/P/Bld) [Vol rate/Area] 85 mL/min/{1.73_m2} Normal >=[address] [facility] Comment on above: Result Comment: Repo rted eGFR is based on the CKD-EPI 2020 equation using creatinine, age, and sex. Performed By: #### CLOTILDE PUGA ####[facility] (DEFAULT)[address] [facility] [place] [address] Glucose [Mass/Vol] 128 mg/dL Normal Nonfastin -179 mg/dL; Fastin-[address] [facility] Comment on above: Performed By: #### CLOTILDE PUGA ####[facility] (DEFAULT)[address] [place] [address], [place] [address] Osmolality [Osmolality] 287 mosm/kg Normal 278-[address] [facility] Comment on above: Performed By: #### CLARISSA PUGA7 ####[facility] (DEFAULT)[address] [place], [place] [address], [place] [address] Potassium [Moles/Vol] 4.3 mmol/L Normal 3.5-5.0 [facility] Comment on above: Performed By: #### CLARISSA PUGA7 ####[facility] (DEFAULT)[address] [place] [address] Sodium [Moles/Vol] 137 mmol/L Normal 135-145 [facility] Comment on above: Performed By: #### Shanell CHANG CHM7 ####[facility] (DEFAULT)[address] [place] [address] Urea nitrogen [Mass/Vol] 7 mg/dL Normal 7-[address] [facility] Comment on above: Performed By: #### Shanell CHANG CHM7 ####[facility] (DEFAULT)[address] [facility] [place] [address] Urea nitrogen/Creatinine [Mass ratio] 9 mg/mg Normal [facility] Comment on above: Performed By: #### Shanell CHANG CHM7 ####[facility] (DEFAULT)[address] [facility] [place] [address] CSF DIFFERENTIALon 5 Basophils (Csf) 0 % Normal [facility] Comment on above: Result Comment: The reference range has not been established for this parameter for this fluid. Clinical correlation is recommended. Performed By: #### L AB951 ####[facility] (DEFAULT)[address] [place] [address] Cells Counted (CSF) [address] [facility] Comment on above: Performed By: #### L AB951 ####[facility] (DEFAULT)[address] [facility] [place] [address] Comment (Csf) There is no evidence of malignancy. There is no evidence of an inflammatory response. No organisms seen. Normal [facility] Comment on above: Performed By: #### L AB951 ####[facility] (DEFAULT)[address] [facility] [place] [address] Differential Reviewed By Hang Guzman MD [facility] Comment on above: Performed By: #### L AB951 ####[facility] (DEFAULT)[address] [place] [address] Eosinophils (Csf) 0 % Normal [facility] Comment on above: Result Comment: The reference range has not been established for this parameter for this fluid. Clinical correlation is recommended. Performed By: #### L AB951 ####[facility] (DEFAULT)[address] [place] [address] Lymphocytes (Csf) 86 % High 40-80 [facility] Comment on above: Performed By: #### L AB951 ####[facility] (DEFAULT)[address] [place] [address], [place] [address] Monocytes/Macrophages, CSF 14 % Low 15-[address] [facility] Comment on above: Performed By: #### L AB951 ####[facility] (DEFAULT)[address] [place] [address] Neutrophils (Csf) 0 % Normal <=6 [facility] Comment on above: Performed By: #### L AB951 ####[facility] (DEFAULT)[address] [place] [address] CSF FLUID COUNT ONLYOrdered By: Lexie Hector on 01-04-2025 Appearance (Body fld) [facility] Appearance (Body fld) Not Indicated [facility] RBC Manual cnt (CSF) [#/Vol] /uL NINF - 3 /uL [facility] Tube number Nom (CSF) [ID] CSF TUBE 4 [facility] WBC Manual cnt (CSF) [#/Vol] /uL NINF - 6 /uL [facility] CSF FLUID COUNT ONLYon 01-04 CSF Tube Number CSF TUBE 4 Normal [facility] Comment on above: Performed By: #### C SFLC ####[facility] (DEFAULT)[address] [place] [address] Performed By: #### L AB951 ####[facility] (DEFAULT)[address] [place] [address], [place] [address] Gross Appearance (Csf) Normal [place] [facility] Comment on above: Result Comment: Spruce Head rlessClear Performed By: #### C SFLC ####[facility] (DEFAULT)[address] [place] [address] Red Blood Cells (CSF) < Normal <3 [facility] Comment on above: Performed By: #### C SFLC ####[facility] (DEFAULT)[address] [place] [address] Supernatant (Csf) Not Indicated Normal [facility] Comment on above: Performed By: #### C SFLC ####[facility] (DEFAULT)[address] [place] [address] Total Nucleated Cells (TNC CSF) < Normal <[address] [facility] Comment on above: Performed By: #### C SFLC ####[facility] (DEFAULT)[address] [place] [address] CSF TECH DIFFERENTIALOrdered By: Julianne Argueta on 01-04-[address] [facility] [address] HEAD WITHOUT CONTRASTon 0 01-04-2025 CT HEAD WITHOUT CONTRAST Normal [facility] CT Head WO contraston 2024 RADIOLOGY RADIOLOGY [facility] Radiology Study observation (narrative) [facility] CT Head WO contrastOrdered B y: Kelsy Frostuyen on 01-04-2025 [facility] Work Phone: CYTOLOGY, NON-GYNon 01-05-20 25 CYTOLOGIC DIAGNOSIS Normal [facility] Comment on above: Result Comment: A. C EREBROSPINAL FLUID (CYTOLOGY):FINAL DIAGNOSIS:No Malignant Cells Are Identified at 1406 EDT Performed By: #### N ONGNNONFNA ####[facility] (DEFAULT)[address] [place] [address] Case Report Normal [facility] Comment on above: Result Comment: Medi erasmo Cytology Report Case: [id number] Provider: CHAPITO Palmer Collected: 01/04/2025 12:37 PMOrdering Location: Received: 01/04/2025 05:51 PMPathologist: ALDAIR Haywoodpecimen: CEREBROSPINAL FLUID LUMBAR PUNCTURE, CSF Performed By: #### N ONGNMARIANENFNA ####[facility] (DEFAULT)[address] [place] [address] Clinical History r/o infetion vs malignancy. [facility] Comment on above: Performed By: #### N ONJULIO ####[facility] (DEFAULT)[address] [place] [address] Gross Description Normal [facility] Comment on above: Result Comment: CSF4 cc clear colorless fld unfixed2 cytospin slide Daugherty stain Performed By: #### N ONGNMARIANNEFNA ####[facility] (DEFAULT)[address] [place] [address] Professional Interpretation Performed at: [facility] Comment on above: Result Comment: For Immediate Release to Patient's [facility] [id number] [address] Performed By: #### N ONGNNONFNA ####[facility] (DEFAULT)[address] [place] [address] GLUCOSE POCon 01-04-2025 Glucose [Mass/Vol] 173 mg/dL 70 - 179 mg/dL [facility] POC Sample Type CAPBL [facility] Glucose [Mass/Vol] 191 mg/dL High 70 - 179 mg/dL [facility] Interpretation and review of laboratory results Abnormal [facility] POC Sample Type CAPBL [facility] Glucose [Mass/Vol] 109 mg/dL 70 - 179 mg/dL [facility] POC Sample Type CAPBL [facility] Glucose [Mass/Vol] 115 mg/dL 70 - 179 mg/dL [facility] POC Sample Type CAPBL [facility] Glucose [Mass/Vol] 170 mg/dL 70 - 179 mg/dL [facility] Glucose [Mass/Vol] 133 mg/dL 70 - 179 mg/dL [facility] Lumbar Punctureon 01-04-2025 [facility] MAGNESIUMon 01-04-2025 Interpretation and review of laboratory results Normal [facility] Magnesium [Mass/Vol] 2.2 mg/dL 1.6 - 2 .6 mg/dL [facility] Magnesium [Mass/Vol] 2.2 mg/dL Normal 1.6-2.[address] [facility] Comment on above: Performed By: #### M CHARLENE M7 ####[facility] (DEFAULT)[address] [place] [address] No Panel Informationon 01-04 POC Sample Type [facility] OLIGOCLONAL BANDS, CSF AND S ERUMon 01-04-2025 Oligoclonal Bands Interpretation, CSF 0 bands Normal <[address] [facility] Comment on above: Order Comment: REQUI RES SERUM and CSF Result Comment: The oligoclonal band assay detected no unique IgG bands inthe CSF. This is a negative result.Test Performed by:[facility] [place], [place] [address]Mdi Director: Jennifer Robles Ph.D.; CLIA# [id number] Performed By: #### L ABOLIGBAND ####[facility] (DEFAULT)[address] [place] [address] Oligoclonal Bands, CSF 8 bands Normal [facility] Comment on above: Order Comment: REQUI RES SERUM and CSF Performed By: #### L ABOLIGBAND ####[facility] (DEFAULT)[address] [place] [address] Oligoclonal Bands, Serum 8 bands [address] [facility] Comment on above: Order Comment: REQUI RES SERUM and CSF Performed By: #### L ABOLIGBAND ####[facility] (DEFAULT)[address] [place] [address] PROTEIN & GLUCOSE, CSFOrdere d By: Janell Ambriz on 01-04-2025 Glucose (CSF) [Mass/Vol] 56 mg/dL 40 - 70 mg/dL [facility] Interpretation and review of laboratory results Abnormal [facility] Protein (CSF) [Mass/Vol] 66 mg/dL High 15 - 45 mg/dL [facility] PROTEIN & GLUCOSE, CSFon CSF Glucose 56 mg/dL Normal 40-[address] [facility] Comment on above: Performed By: #### C FPG ####[facility] (DEFAULT)[address] [place] [address] CSF Protein 66 mg/dL High 15-[address] [facility] Comment on above: Performed By: #### C FPG ####[facility] (DEFAULT)[address] [place] [address] BLOOD CULTUREon 01-03-2025 Bacteria identified Cx Nom (Unsp spec) NO GROWTH DAY 5 OF [address] [facility] Comment on above: Order Comment: 2 Bot tles (1 Set - consists of 1 Aerobic bottle and 1 Anaerobic bottle) -1st Peripheral DrawFor vacutainer method draw: Fill aerobic bottle first, then anaerobic Performed By: #### B LDCULT ####[facility] (DEFAULT)[address] [place] [address] CBC AND ELECTRONIC DIFFon Basophils (Bld) [#/Vol] 0.04 10*3/uL 0.00 - 0.15 K/uL [facility] Basophils/100 WBC (Bld) 0.6 % [facility] Differential cell count method Nom (Bld) Electronic Differential O [facility] Eosinophils (Bld) [#/Vol] 0.15 10*3/uL 0.00 - 0.42 K/uL [facility] Eosinophils/100 WBC (Bld) 2.3 % [facility] Erythrocyte distribution width (RBC) [Ratio] 14.6 % 10.8 - 14.9 % [facility] Hematocrit (Bld) [Volume fraction] 27.6 % Low 34.9 - 44.3 % [facility] Hemoglobin (Bld) [Mass/Vol] 9 g/dL Low 11.4 - 15.2 g/dL [facility] Immature granulocytes (Bld) [#/Vol] 0.05 10*3/uL NINF - 0.08 K/uL [facility] Immature granulocytes/100 WBC (Bld) 0.8 % [facility] Interpretation and review of laboratory results Abnormal [facility] Lymphocytes (Bld) [#/Vol] 1.8 10*3/uL 1.16 - 3.51 K/uL [facility] Lymphocytes/100 WBC (Bld) 27.8 % [facility] MCH (RBC) [Entitic mass] 29 pg 25.9 - 33.9 pg [facility] MCHC (RBC) [Mass/Vol] 32.6 g/dL 31.4 - 35.9 g/dL [facility] MCV (RBC) [Entitic vol] 89 fL 79.6 - 97.7 fL [facility] Monocytes (Bld) [#/Vol] 0.54 10*3/uL 0.22 - 0.87 K/uL [facility] Monocytes/100 WBC (Bld) 8.3 % [facility] Neutrophils (Bld) [#/Vol] 3.9 10*3/uL 1.64 - 7.28 K/uL [facility] Nucleated RBC/100 WBC (Bld) [Ratio] 0 % [facility] Platelet mean volume (Bld) [Entitic vol] 10.4 fL 8.5 - 12.2 fL [facility] Platelets (Bld) [#/Vol] 220 10*3/uL 150 - 393 K/uL [facility] RBC (Bld) [#/Vol] 3.1 10*6/uL Low [facility] Segmented neutrophils/100 WBC (Bld) 60.2 % [facility] WBC (Bld) [#/Vol] 6.48 10*3/uL 3.99 - 11. 19 K/uL [facility] Basophils (Bld) [#/Vol] 0.04 10*3/uL Normal 0.00-0.[address] [facility] Comment on above: Performed By: #### L [id number] ####[facility] (DEFAULT)[address] [place] [address] Basophils/100 WBC (Bld) 0.6 % Normal [facility] Comment on above: Performed By: #### L [id number] ####[facility] (DEFAULT)[address] [place] [address] DIFF STATUS Electronic Differential Normal [facility] Comment on above: Performed By: #### L [id number] ####[facility] (DEFAULT)[address] [place] [address] Eosinophils (Bld) [#/Vol] 0.15 10*3/uL Normal 0.00-0.[address] [facility] Comment on above: Performed By: #### L [id number] ####[facility] (DEFAULT)[address] [place] [address] Eosinophils/100 WBC (Bld) 2.3 % Normal [facility] Comment on above: Performed By: #### L [id number] ####[facility] (DEFAULT)[address] [place] [address] Hematocrit (Bld) [Volume fraction] 27.6 % Low 34.9-44.[address] [facility] Comment on above: Performed By: #### L [id number] ####[facility] (DEFAULT)[address] [place] [address] Hemoglobin (Bld) [Mass/Vol] 9.0 g/dL Low 11.4-15.[address] [facility] Comment on above: Performed By: #### L [id number] ####[facility] (DEFAULT)[address] [place] [address] Immature Grans % 0.8 % Normal [facility] Comment on above: Performed By: #### L [id number] ####[facility] (DEFAULT)[address] [place] [address] Immature Grans Absolute 0.05 K/uL Normal <=0.[address] [facility] Comment on above: Performed By: #### L [id number] ####[facility] (DEFAULT)[address] [place] [address] Lymphocytes (Bld) [#/Vol] 1.80 10*3/uL Normal 1.16-3.[address] [facility] Comment on above: Performed By: #### L [id number] ####[facility] (DEFAULT)[address] [place] [address] Lymphocytes/100 WBC (Bld) 27.8 % Normal [facility] Comment on above: Performed By: #### L [id number] ####[facility] (DEFAULT)[address] [place] [address] MCV (RBC) [Entitic vol] 89.0 fL Normal 79.6-97.[address] [facility] Comment on above: Performed By: #### L [id number] ####[facility] (DEFAULT)[address] [place] [address] Mean Cell Hgb 29.0 pg Normal 25.9-33.[address] [facility] Comment on above: Performed By: #### L [id number] ####[facility] (DEFAULT)[address] [facility] [place] [address] Mean Cell Hgb Conc 32.6 g/dL Normal 31.4-35.9 [facility] Comment on above: Performed By: #### L [id number] ####[facility] (DEFAULT)[address] [place] [address] Monocytes (Bld) [#/Vol] 0.54 10*3/uL Normal 0.22-0.[address] [facility] Comment on above: Performed By: #### L [id number] ####[facility] (DEFAULT)[address] [place] [address] Monocytes/100 WBC (Bld) 8.3 % Normal [facility] Comment on above: Performed By: #### L [id number] ####[facility] (DEFAULT)[address] [place] [address] Nucleated RBC 0.0 /100 WBC Normal <=0.2 [facility] Comment on above: Performed By: #### L [id number] ####[facility] (DEFAULT)[address] [place] [address] Platelet mean volume (Bld) [Entitic vol] 10.4 fL Normal 8.5-12.[address] [facility] Comment on above: Performed By: #### L [id number] ####[facility] (DEFAULT)[address] [facility] [place] [address] Platelets (Bld) [#/Vol] 220 10*3/uL Normal 150-[address] [facility] Comment on above: Performed By: #### L [id number] ####[facility] (DEFAULT)[address] [place] [address] RBC (Bld) [#/Vol] 3.10 10*6/uL Low 3.91-5.[address] [facility] Comment on above: Performed By: #### L [id number] ####[facility] (DEFAULT)[address] [place] [address] RBC Distribution 14.6 % Normal 10.8-14.9 [facility] Comment on above: Performed By: #### L AB980 ####[facility] (DEFAULT)[address] [place] [address] Segs + Bands Auto 60.2 % Normal [facility] Comment on above: Performed By: #### L [id number] ####[facility] (DEFAULT)[address] [place] [address] Segs + Bands,Absolute Auto 3.90 K/uL Normal 1.64-7.[address] [facility] Comment on above: Performed By: #### L [id number] ####[facility] (DEFAULT)[address] [place] [address] WBC (Bld) [#/Vol] 6.48 10*3/uL Normal 3.99-11.[address] [facility] Comment on above: Performed By: #### L [id number] ####[facility] (DEFAULT)[address] [place] [address] CHEM 7 (LYTES,BUN,CREA,GLUC) Ordered By: Krunal Cazares on 01-03-2025 Anion gap [Moles/Vol] 15 mmol/L 7 - 17 mmol/L [facility] Chloride [Moles/Vol] 101 mmol/L 98 - 10 8 mmol/L [facility] CO2 [Moles/Vol] 26 mmol/L 21 - 31 mmol/L [facility] Creatinine [Mass/Vol] 0.77 mg/dL 0.50 - 1.20 mg/dL [facility] eGFR, CKD-EPI, Female 89 - PINF [facility] Glucose [Mass/Vol] 111 mg/dL 70 - 179 mg/dL [facility] Osmolality Calc [Osmolality] 288 [facility] Potassium [Moles/Vol] 4.1 mmol/L 3.5 - 5.0 mmol/L [facility] Sodium [Moles/Vol] 138 mmol/L 135 - 145 mmol/L [facility] Urea nitrogen [Mass/Vol] 8 mg/dL 7 - 25 mg/dL [facility] Urea nitrogen/Creatinine [Mass ratio] 10 mg/mg [facility] CHEM 7 (LYTES,BUN,CREA,GLUC) on 01-03-2025 Anion gap [Moles/Vol] 15 mmol/L Normal 7-17 [facility] Comment on above: Performed By: #### CLARISSA PUGA7 ####[facility] (DEFAULT)[address] [place] [address] Chloride [Moles/Vol] 101 mmol/L Normal 98-[address] [facility] Comment on above: Performed By: #### CLARISSA PUGA7 ####[facility] (DEFAULT)[address] [place] [address] CO2 [Moles/Vol] 26 mmol/L Normal 21-31 [facility] Comment on above: Performed By: #### CLARISSA PUGA7 ####[facility] (DEFAULT)[address] [place] [address] Creatinine [Mass/Vol] 0.77 mg/dL Normal 0.50-1.20 [facility] Comment on above: Performed By: #### Shanell CHANG CHM7 ####[facility] (DEFAULT)[address] [place] [address] GFR/1.73 sq M.predicted among non-blacks MDRD (S/P/Bld) [Vol rate/Area] 89 mL/min/{1.73_m2} Normal >=[address] [facility] Comment on above: Result Comment: Repo rted eGFR is based on the CKD-EPI 2020 equation using creatinine, age, and sex. Performed By: #### Shanell CHANG CHM7 ####[facility] (DEFAULT)[address] [place] [address] Glucose [Mass/Vol] 111 mg/dL Normal Nonfastin -179 mg/dL; Fastin-[address] [facility] Comment on above: Performed By: #### CLARISSA PUGA7 ####[facility] (DEFAULT)[address] [place] [address] Osmolality [Osmolality] 288 mosm/kg Normal 278-[address] [facility] Comment on above: Performed By: #### CLARISSA PUGA7 ####[facility] (DEFAULT)[address] [place] [address] Potassium [Moles/Vol] 4.1 mmol/L Normal 3.5-5.0 [facility] Comment on above: Performed By: #### CLARISSA PUGA7 ####[facility] (DEFAULT)[address] [place] [address] Sodium [Moles/Vol] 138 mmol/L Normal 135-145 [facility] Comment on above: Performed By: #### CLARISSA PUGA7 ####[facility] (DEFAULT)[address] [place] [address] Urea nitrogen [Mass/Vol] 8 mg/dL Normal 7-[address] [facility] Comment on above: Performed By: #### CLARISSA PUGA7 ####[facility] (DEFAULT)[address] [place] [address] Urea nitrogen/Creatinine [Mass ratio] 10 mg/mg Normal [facility] Comment on above: Performed By: #### CLARISSA PUGA7 ####[facility] (DEFAULT)[address] [facility] [place] [address] GLUCOSE POCon 01-03-2025 Glucose [Mass/Vol] 171 mg/dL 70 - 179 mg/dL [facility] POC Sample Type [facility] Glucose [Mass/Vol] 208 mg/dL High 70 - 179 mg/dL [facility] Glucose [Mass/Vol] 75 mg/dL 70 - 179 mg/dL [facility] Interpretation and review of laboratory results Abnormal [facility] Glucose [Mass/Vol] 298 mg/dL High 70 - 179 mg/dL [facility] Interpretation and review of laboratory results Abnormal [facility] Gl[facility] [Mass/Vol] 159 mg/dL 70 - 179 mg/dL [facility] Glucose [Mass/Vol] 118 mg/dL 70 - 179 mg/dL [facility] POC Sample Type [facility] MAGNESIUMon 01-03-2025 Interpretation and review of laboratory results Normal [facility] Magnesium [Mass/Vol] 2.1 mg/dL 1.6 - 2 .6 mg/dL [facility] Magnesium [Mass/Vol] 2.1 mg/dL Normal 1.6-2.[address] [facility] Comment on above: Performed By: #### M CHARLENE CH7 ####[facility] (DEFAULT)[address] [place] [address] No Panel Informationon 01-03 POC Sample Type [facility] BLOOD CULTUREon 01-02-2025 Bacteria identified Cx Nom (Unsp spec) NO GROWTH DAY 5 OF [address] [facility] Comment on above: Order Comment: 2 Bot tles (1 Set - consists of 1 Aerobic bottle and 1 Anaerobic bottle) -1st Peripheral DrawFor vacutainer method draw: Fill aerobic bottle first, then anaerobic Performed By: #### B LDCULT ####[facility] (DEFAULT)[address] [place] [address] Order Comment: 2 Bot tles (1 Set - consists of 1 Aerobic bottle and 1 Anaerobic bottle) -1st Peripheral DrawFor vacutainer method draw: Fill aerobic bottle first, then anaerobicResults may be compromised due to HIGH VOLUME of the BACT\\ALERT bottle EXCEEDING 10mLs, which can be associated with increased contamination. The optimal blood volume is 8-10mLs per aerobic/anaerobic blood culture bottle. C REACTIVE PROTEINOrdered By : Waldemar Olmstead on 01-02-2025 CRP High sensitivity method [Mass/Vol] 98.17 mg/L High NINF - 10.00 mg/L [facility] Interpretation and review of laboratory results Abnormal [facility] CBC AND ELECTRONIC DIFFon Basophils (Bld) [#/Vol] K/uL 0.00 - 0.15 K/uL [facility] Basophils/100 WBC (Bld) 0.4 % [facility] Differential cell count method Nom (Bld) Electronic Differential O [facility] Eosinophils (Bld) [#/Vol] 0.14 10*3/uL 0.00 - 0.42 K/uL [facility] Eosinophils/100 WBC (Bld) 2.1 % [facility] Erythrocyte distribution width (RBC) [Ratio] 14.4 % 10.8 - 14.9 % [facility] Hematocrit (Bld) [Volume fraction] 27.5 % Low 34.9 - 44.3 % [facility] Hemoglobin (Bld) [Mass/Vol] 8.8 g/dL Low 11.4 - 15.2 g/dL [facility] Immature granulocytes (Bld) [#/Vol] K/uL NINF - 0.08 K/uL [facility] Immature granulocytes/100 WBC (Bld) 0.4 % [facility] Interpretation and review of laboratory results Abnormal [facility] Lymphocytes (Bld) [#/Vol] 1.91 10*3/uL 1.16 - 3.51 K/uL [facility] Lymphocytes/100 WBC (Bld) 28.5 % [facility] MCH (RBC) [Entitic mass] 28.4 pg 25.9 - 33.9 pg [facility] MCHC (RBC) [Mass/Vol] 32 g/dL 31.4 - 35.9 g/dL [facility] MCV (RBC) [Entitic vol] 88.7 fL 79.6 - 97.7 fL [facility] Monocytes (Bld) [#/Vol] 0.67 10*3/uL 0.22 - 0.87 K/uL [facility] Monocytes/100 WBC (Bld) 10 % [facility] Neutrophils (Bld) [#/Vol] 3.92 10*3/uL 1.64 - 7.28 K/uL [facility] Nucleated RBC/100 WBC (Bld) [Ratio] 0 % NINF [facility] Platelet mean volume (Bld) [Entitic vol] 10.4 fL 8.5 - 12.2 fL [facility] Platelets (Bld) [#/Vol] 190 10*3/uL 150 - 393 K/uL [facility] RBC (Bld) [#/Vol] 3.1 10*6/uL Low [facility] Segmented neutrophils/100 WBC (Bld) 58.6 % [facility] WBC (Bld) [#/Vol] 6.7 10*3/uL 3.99 - 11. 19 K/uL [facility] Abs Baso Auto < Normal 0.00-0.[address] [facility] Comment on above: Performed By: #### L [id number] ####[facility] (DEFAULT)[address] [place] [address] Basophils/100 WBC (Bld) 0.4 % Normal [facility] Comment on above: Performed By: #### L AB980 ####[facility] (DEFAULT)[address] [place] [address] DIFF STATUS Electronic Differential Normal [facility] Comment on above: Performed By: #### L AB980 ####[facility] (DEFAULT)[address] [place] [address] Eosinophils (Bld) [#/Vol] 0.14 10*3/uL Normal 0.00-0.[address] [facility] Comment on above: Performed By: #### L AB980 ####[facility] (DEFAULT)[address] [place] [address] Eosinophils/100 WBC (Bld) 2.1 % Normal [facility] Comment on above: Performed By: #### L AB980 ####[facility] (DEFAULT)[address] [place] [address], [place] [address] Hematocrit (Bld) [Volume fraction] 27.5 % Low 34.9-44.[address] [facility] Comment on above: Performed By: #### L AB980 ####[facility] (DEFAULT)[address] [place] [address], [place] [address] Hemoglobin (Bld) [Mass/Vol] 8.8 g/dL Low 11.4-15.[address] [facility] Comment on above: Performed By: #### L AB980 ####[facility] (DEFAULT)[address] [place] [address], [place] [address] Immature Grans % 0.4 % Normal [facility] Comment on above: Performed By: #### L AB980 ####[facility] (DEFAULT)[address] [place] [address], [place] [address] Immature Grans Absolute < Normal <=0.[address] [facility] Comment on above: Performed By: #### L AB980 ####[facility] (DEFAULT)[address] [place] [address], [place] [address] Lymphocytes (Bld) [#/Vol] 1.91 10*3/uL Normal 1.16-3.[address] [facility] Comment on above: Performed By: #### L AB980 ####[facility] (DEFAULT)[address] [place] [address] Lymphocytes/100 WBC (Bld) 28.5 % Normal [facility] Comment on above: Performed By: #### L AB980 ####[facility] (DEFAULT)[address] [place] [address] MCV (RBC) [Entitic vol] 88.7 fL Normal 79.6-97.[address] [facility] Comment on above: Performed By: #### L AB980 ####[facility] (DEFAULT)[address] [facility] [place] [address] Mean Cell Hgb 28.4 pg Normal 25.9-33.[address] [facility] Comment on above: Performed By: #### L AB980 ####[facility] (DEFAULT)[address] [place] [address] Mean Cell Hgb Conc 32.0 g/dL Normal 31.4-35.9 [facility] Comment on above: Performed By: #### L AB980 ####[facility] (DEFAULT)[address] [place] [address] Monocytes (Bld) [#/Vol] 0.67 10*3/uL Normal 0.22-0.[address] [facility] Comment on above: Performed By: #### L AB980 ####[facility] (DEFAULT)[address] [place] [address] Monocytes/100 WBC (Bld) 10.0 % Normal [facility] Comment on above: Performed By: #### L AB980 ####[facility] (DEFAULT)[address] [place] [address] Nucleated RBC 0.0 /100 WBC Normal <=0.2 [facility] Comment on above: Performed By: #### L AB980 ####[facility] (DEFAULT)[address] [place] [address] Platelet mean volume (Bld) [Entitic vol] 10.4 fL Normal 8.5-12.[address] [facility] Comment on above: Performed By: #### L [id number] ####[facility] (DEFAULT)[address] [place] [address] Platelets (Bld) [#/Vol] 190 10*3/uL Normal 150-[address] [facility] Comment on above: Performed By: #### L AB980 ####[facility] (DEFAULT)[address] [place] [address] RBC (Bld) [#/Vol] 3.10 10*6/uL Low 3.91-5.[address] [facility] Comment on above: Performed By: #### L AB980 ####[facility] (DEFAULT)[address] [place] [address] RBC Distribution 14.4 % Normal 10.8-14.9 [facility] Comment on above: Performed By: #### L AB980 ####[facility] (DEFAULT)[address] [place] [address] Segs + Bands Auto 58.6 % Normal [facility] Comment on above: Performed By: #### L AB980 ####[facility] (DEFAULT)[address] [place] [address] Segs + Bands,Absolute Auto 3.92 K/uL Normal 1.64-7.[address] [facility] Comment on above: Performed By: #### L AB980 ####[facility] (DEFAULT)[address] [place] [address] WBC (Bld) [#/Vol] 6.70 10*3/uL Normal 3.99-11.[address] [facility] Comment on above: Performed By: #### L AB980 ####[facility] (DEFAULT)[address] [place] [address] CHEM 7 (LYTES,BUN,CREA,GLUC) on 01-02-2025 Anion gap [Moles/Vol] 12 mmol/L 7 - 17 mmol/L [facility] Chloride [Moles/Vol] 97 mmol/L Low 98 - 10 8 mmol/L [facility] CO2 [Moles/Vol] 26 mmol/L 21 - 31 mmol/L [facility] Creatinine [Mass/Vol] 0.76 mg/dL 0.50 - 1.20 mg/dL [facility] eGFR, CKD-EPI, Female - PINF [facility] Glucose [Mass/Vol] 228 mg/dL High 70 - 179 mg/dL [facility] Interpretation and review of laboratory results Abnormal [facility] Osmolality Calc [Osmolality] 284 [facility] Potassium [Moles/Vol] 4.4 mmol/L 3.5 - 5.0 mmol/L [facility] Sodium [Moles/Vol] 131 mmol/L Low 135 - 145 mmol/L [facility] Urea nitrogen [Mass/Vol] 9 mg/dL 7 - 25 mg/dL [facility] Urea nitrogen/Creatinine [Mass ratio] 12 mg/mg [facility] Anion gap [Moles/Vol] 12 mmol/L Normal 7-17 [facility] Comment on above: Performed By: #### Shanell CHANG CHM7 ####[facility] (DEFAULT)[address] [place] [address] Chloride [Moles/Vol] 97 mmol/L Low 98-[address] [facility] Comment on above: Performed By: #### Shanell CHANG CHM7 ####[facility] (DEFAULT)[address] [place] [address] CO2 [Moles/Vol] 26 mmol/L Normal 21-31 [facility] Comment on above: Performed By: #### Shanell CHANG CHM7 ####[facility] (DEFAULT)[address] [place] [address] Creatinine [Mass/Vol] 0.76 mg/dL Normal 0.50-1.20 [facility] Comment on above: Performed By: #### Shanell CHANG CHM7 ####[facility] (DEFAULT)[address] [place] [address] eGFR, CKD-EPI, Female > Normal >=60 [facility] Comment on above: Result Comment: Repo rted eGFR is based on the CKD-EPI 2020 equation using creatinine, age, and sex. Performed By: #### CLARISSA PUGA7 ####[facility] (DEFAULT)[address] [place] [address] Glucose [Mass/Vol] 228 mg/dL High Nonfastin -179 mg/dL; Fastin-[address] [facility] Comment on above: Performed By: #### CLARISSA PUGA7 ####[facility] (DEFAULT)[address] [facility] [place] [address] Osmolality [Osmolality] 284 mosm/kg Normal 278-[address] [facility] Comment on above: Performed By: #### CLARISSA PUGA7 ####[facility] (DEFAULT)[address] [place] [address] Potassium [Moles/Vol] 4.4 mmol/L Normal 3.5-5.0 [facility] Comment on above: Performed By: #### CLARISSA PUGA7 ####[facility] (DEFAULT)[address] [place] [address] Sodium [Moles/Vol] 131 mmol/L Low 135-145 [facility] Comment on above: Performed By: #### Shanell CHANG CHM7 ####[facility] (DEFAULT)[address] [place] [address] Urea nitrogen [Mass/Vol] 9 mg/dL Normal 7-[address] [facility] Comment on above: Performed By: #### Shanell CHANG CHM7 ####[facility] (DEFAULT)[address] [facility] [place] [address] Urea nitrogen/Creatinine [Mass ratio] 12 mg/mg Normal [facility] Comment on above: Performed By: #### CLARISSA PUGA7 ####[facility] (DEFAULT)[address] [place] [address] CT ABDOMEN/PELVIS WITH CONTR Jagjit 01-02-2025 CT ABDOMEN/PELVIS WITH CONTRAST Normal [facility] CT Abdomen and Pelvis W cont rast Yodit 01-02-2025 [facility]narrative[facility]AST[facility] CT CHEST WITH CONTRAST Normal [facility] CT Chest W contrast Yodit RADIOLOGY RADIOLOGY [facility] Radiology Study observation (narrative[facility] W contrast IVOrdere d By: Oscar Degroot on 01-02-2025 [facility] Work Phone: GLUCOSE POCon 01-02-2025 Glucose [Mass/Vol] 168 mg/dL 70 - 179 mg/dL [facility] POC Sample Type CAPBL [facility] Glucose [Mass/Vol] 206 mg/dL High 70 - 179 mg/dL [facility] Interpretation and review of laboratory results Abnormal [facility] POC Sample Type CAPBL [facility] Glucose [Mass/Vol] 168 mg/dL 70 - 179 mg/dL [facility] POC Sample Type CAPBL [facility] Glucose [Mass/Vol] 189 mg/dL High 70 - 179 mg/dL [facility] Interpretation and review of laboratory results Abnormal [facility] POC Sample Type CAPBL [facility] MAGNESIUMon 01-02-2025 Interpretation and review of laboratory results Normal [facility] Magnesium [Mass/Vol] 2 mg/dL 1.6 - 2 .6 mg/dL [facility] Magnesium [Mass/Vol] 2.0 mg/dL Normal 1.6-2.[address] [facility] Comment on above: Performed By: #### M MARIEL CHANGM7 ####[facility] (DEFAULT)[address] [place] [address] No Panel Informationon 01-02 [facility] PT,INR,PTTon 01-02-2025 aPTT Coag (PPP) [Time] 26.8 s [facility] INR Coag (Bld) [Relative time] 1.1 {INR} 0.9 - 1.1 [facility] Interpretation and review of laboratory results Normal [facility] PT Coag (PPP) [Time] 14 s [facility] aPTT Coag (Bld) [Time] 26.8 s Normal 24.0-34.3 [facility] Comment on above: Performed By: #### P TPTT ####[facility] (DEFAULT)[address] [place] [address] INR Coag (PPP) [Relative time] 1.1 {INR} Normal 0.9-1.[address] [facility] Comment on above: Performed By: #### P TPTT ####[facility] (DEFAULT)[address] [place] [address] PT Coag (PPP) [Time] 14.0 s Normal 11.9-14.[address] [facility] Comment on above: Performed By: #### P TPTT ####[facility] (DEFAULT)[address] [place] [address], [place] [address] SEDIMENTATION RATE, AUTOMATE Don 01-02-2025 ESR (Bld) [Velocity] 84 mm/h High NINF [facility] Interpretation and review of laboratory results Abnormal [facility] NADINE MULTIPLEX SCRN WITH REFL EXon 01-01-2025 NADINE Screen, Multiplex Negative Normal Negative [facility] Comment on above: Result Comment: This test includes the following antibodies: Centromere, Chromatin, DsDNA, Jo1, Ribosomal P, MILK [employer]SE WORKER, ScL70, Sm/MILK HOUSE WORKER, Page, SSA and SSB. A negative screen result means each antibody listed is negative. If positive, the individual antibody results will be reflexed. Performed By: #### A NASR ####[facility] (DEFAULT)[address] [place] [address] BLOOD CULTUREon 01-01-2025 Bacteria identified Cx Nom (Unsp spec) NO GROWTH DAY 5 OF [address] [facility] Comment on above: Order Comment: 2 Bot tles (1 Set - consists of 1 Aerobic bottle and 1 Anaerobic bottle) -1st Peripheral DrawFor vacutainer method draw: Fill aerobic bottle first, then anaerobic Performed By: #### B LDCULT ####[facility] (DEFAULT)[address] [place] [address] C REACTIVE PROTEINon 025 CRP [Mass/Vol] 98.17 mg/L High <10.[address] [facility] Comment on above: Performed By: #### C RP ####[facility] (DEFAULT)[address] [place] [address] CBC AND ELECTRONIC DIFFon Basophils (Bld) [#/Vol] 0.04 10*3/uL 0.00 - 0.15 K/uL [facility] Basophils/100 WBC (Bld) 0.3 % [facility] Differential cell count method Nom (Bld) Electronic Differential [facility] Eosinophils (Bld) [#/Vol] 0.19 10*3/uL 0.00 - 0.42 K/uL [facility] Eosinophils/100 WBC (Bld) 1.6 % [facility] Erythrocyte distribution width (RBC) [Ratio] 14.3 % 10.8 - 14.9 % [facility] Hematocrit (Bld) [Volume fraction] 32.2 % Low 34.9 - 44.3 % [facility] Hemoglobin (Bld) [Mass/Vol] 10.3 g/dL Low 11.4 - 15.2 g/dL [facility] Immature granulocytes (Bld) [#/Vol] 0.09 10*3/uL High NINF - 0.08 K/uL [facility] Immature granulocytes/100 WBC (Bld) 0.7 % [facility] Interpretation and review of laboratory results Abnormal [facility] Lymphocytes (Bld) [#/Vol] 1.61 10*3/uL 1.16 - 3.51 K/uL [facility] Lymphocytes/100 WBC (Bld) 13.4 % [facility] MCH (RBC) [Entitic mass] 28.8 pg 25.9 - 33.9 pg [facility] MCHC (RBC) [Mass/Vol] 32 g/dL 31.4 - 35.9 g/dL [facility] MCV (RBC) [Entitic vol] 89.9 fL 79.6 - 97.7 fL [facility] Monocytes (Bld) [#/Vol] 1.01 10*3/uL High 0.22 - 0.87 K/uL [facility] Monocytes/100 WBC (Bld) 8.4 % [facility] Neutrophils (Bld) [#/Vol] 9.11 10*3/uL High 1.64 - 7.28 K/uL [facility] Nucleated RBC/100 WBC (Bld) [Ratio] 0 % [facility] Platelet mean volume (Bld) [Entitic vol] 10.2 fL 8.5 - 12.2 fL [facility] Platelets (Bld) [#/Vol] 185 10*3/uL 150 - 393 K/uL [facility] RBC (Bld) [#/Vol] 3.58 10*6/uL Low [facility] Segmented neutrophils/100 WBC (Bld) 75.6 % [facility] WBC (Bld) [#/Vol] 12.05 10*3/uL High 3.99 - 11 .19 K/uL [facility] Basophils (Bld) [#/Vol] 0.04 10*3/uL Normal 0.00-0.[address] [facility] Comment on above: Performed By: #### L [id number] ####[facility] (DEFAULT)[address] [place] [address] Basophils/100 WBC (Bld) 0.3 % Normal [facility] Comment on above: Performed By: #### L [id number] ####[facility] (DEFAULT)[address] [place] [address] DIFF STATUS Electronic Differential Normal [facility] Comment on above: Performed By: #### L [id number] ####[facility] (DEFAULT)[address] [facility] [place] [address] Eosinophils (Bld) [#/Vol] 0.19 10*3/uL Normal 0.00-0.[address] [facility] Comment on above: Performed By: #### L [id number] ####[facility] (DEFAULT)[address] [place] [address] Eosinophils/100 WBC (Bld) 1.6 % Normal [facility] Comment on above: Performed By: #### L [id number] ####[facility] (DEFAULT)[address] [place] [address] Hematocrit (Bld) [Volume fraction] 32.2 % Low 34.9-44.[address] [facility] Comment on above: Performed By: #### L [id number] ####[facility] (DEFAULT)[address] [facility] [place] [address] Hemoglobin (Bld) [Mass/Vol] 10.3 g/dL Low 11.4-15.[address] [facility] Comment on above: Performed By: #### L [id number] ####[facility] (DEFAULT)[address] [place] [address] Immature Grans % 0.7 % Normal [facility] Comment on above: Performed By: #### L [id number] ####[facility] (DEFAULT)[address] [place] [address] Immature Grans Absolute 0.09 K/uL High <=0.[address] [facility] Comment on above: Performed By: #### L [id number] ####[facility] (DEFAULT)[address] [place] [address] Lymphocytes (Bld) [#/Vol] 1.61 10*3/uL Normal 1.16-3.[address] [facility] Comment on above: Performed By: #### L [id number] ####[facility] (DEFAULT)[address] [place] [address] Lymphocytes/100 WBC (Bld) 13.4 % Normal [facility] Comment on above: Performed By: #### L [id number] ####[facility] (DEFAULT)[address] [place] [address] MCV (RBC) [Entitic vol] 89.9 fL Normal 79.6-97.[address] [facility] Comment on above: Performed By: #### L [id number] ####[facility] (DEFAULT)[address] [place] [place] [address] Mean Cell Hgb 28.8 pg Normal 25.9-33.[address] [facility] Comment on above: Performed By: #### L [id number] ####[facility] (DEFAULT)[address] [place] [address] Mean Cell Hgb Conc 32.0 g/dL Normal 31.4-35.9 [facility] Comment on above: Performed By: #### L [id number] ####[facility] (DEFAULT)[address] [place] [address] Monocytes (Bld) [#/Vol] 1.01 10*3/uL High 0.22-0.[address] [facility] Comment on above: Performed By: #### L [id number] ####[facility] (DEFAULT)[address] [place] [address] Monocytes/100 WBC (Bld) 8.4 % Normal [facility] Comment on above: Performed By: #### L [id number] ####[facility] (DEFAULT)[address] [facility] [place] [address] Nucleated RBC 0.0 /100 WBC Normal <=0.2 [facility] Comment on above: Performed By: #### L [id number] ####[facility] (DEFAULT)[address] [place] [address] Platelet mean volume (Bld) [Entitic vol] 10.2 fL Normal 8.5-12.[address] [facility] Comment on above: Performed By: #### L [id number] ####[facility] (DEFAULT)[address] [facility] [place] [address] Platelets (Bld) [#/Vol] 185 10*3/uL Normal 150-[address] [facility] Comment on above: Performed By: #### L [id number] ####[facility] (DEFAULT)[address] [place] [address] RBC (Bld) [#/Vol] 3.58 10*6/uL Low 3.91-5.[address] [facility] Comment on above: Performed By: #### L [id number] ####[facility] (DEFAULT)[address] [place] [address] RBC Distribution 14.3 % Normal 10.8-14.9 [facility] Comment on above: Performed By: #### L [id number] ####[facility] (DEFAULT)[address] [place] [address] Segs + Bands Auto 75.6 % Normal [facility] Comment on above: Performed By: #### L [id number] ####[facility] (DEFAULT)[address] [facility] [place] [address] Segs + Bands,Absolute Auto 9.11 K/uL High 1.64-7.[address] [facility] Comment on above: Performed By: #### L [id number] ####[facility] (DEFAULT)[address] [facility] [place] [address] WBC (Bld) [#/Vol] 12.05 10*3/uL High 3.99-11.[address] [facility] Comment on above: Performed By: #### L [id number] ####[facility] (DEFAULT)[address] [place] [address] CHEM 7 (LYTES,BUN,CREA,GLUC) on 01-01-2025 Anion gap [Moles/Vol] 13 mmol/L 7 - 17 mmol/L [facility] Chloride [Moles/Vol] 99 mmol/L 98 - 10 8 mmol/L [facility] CO2 [Moles/Vol] 27 mmol/L 21 - 31 mmol/L [facility] Creatinine [Mass/Vol] 0.74 mg/dL 0.50 - 1.20 mg/dL [facility] eGFR, CKD-EPI, Female - PINF [facility] Glucose [Mass/Vol] 96 mg/dL 70 - 179 mg/dL [facility] Osmolality Calc [Osmolality] 283 [facility] Potassium [Moles/Vol] 4.2 mmol/L 3.5 - 5.0 mmol/L [facility] Sodium [Moles/Vol] 135 mmol/L 135 - 145 mmol/L [facility] Urea nitrogen [Mass/Vol] 10 mg/dL 7 - 25 mg/dL [facility] Urea nitrogen/Creatinine [Mass ratio] 14 mg/mg [facility] Anion gap [Moles/Vol] 13 mmol/L Normal 7-[address] [facility] Comment on above: Performed By: #### CLOTILDE PUGA, CKB ####[facility] (DEFAULT)[address] [place] [address] Chloride [Moles/Vol] 99 mmol/L Normal 98-[address] [facility] Comment on above: Performed By: #### CLOTILDE PUGA, CKB ####[facility] (DEFAULT)[address] [place] [address] CO2 [Moles/Vol] 27 mmol/L Normal 21-31 [facility] Comment on above: Performed By: #### CLOTILDE PUGA, CKB ####[facility] (DEFAULT)[address] [place] [address] Creatinine [Mass/Vol] 0.74 mg/dL Normal 0.50-1.20 [facility] Comment on above: Performed By: #### CLOTILDE PUGA, IVETTEB ####[facility] (DEFAULT)[address] [place] [address] eGFR, CKD-EPI, Female > Normal >=60 [facility] Comment on above: Result Comment: Repo rted eGFR is based on the CKD-EPI 2020 equation using creatinine, age, and sex. Performed By: #### CLTOILDE PUGA, IVETTEB ####[facility] (DEFAULT)[address] [place] [address] Glucose [Mass/Vol] 96 mg/dL Normal Nonfastin -179 mg/dL; Fastin-[address] [facility] Comment on above: Performed By: #### CLOTILDE PUGA, IVETTEB ####[facility] (DEFAULT)[address] [place] [address] Osmolality [Osmolality] 283 mosm/kg Normal 278-[address] [facility] Comment on above: Performed By: #### CLOTILDE PUGA, IVETTEB ####[facility] (DEFAULT)[address] [place] [address] Potassium [Moles/Vol] 4.2 mmol/L Normal 3.5-5.0 [facility] Comment on above: Performed By: #### CLOTILDE PUGA, CKB ####[facility] (DEFAULT)[address] [place] [address] Sodium [Moles/Vol] 135 mmol/L Normal 135-145 [facility] Comment on above: Performed By: #### CLOTILDE PUGA, CKB ####[facility] (DEFAULT)[address] [place] [address] Urea nitrogen [Mass/Vol] 10 mg/dL Normal 7-[address] [facility] Comment on above: Performed By: #### M CLOTILDE CHANG, CKB ####[facility] (DEFAULT)[address] [place] [address] Urea nitrogen/Creatinine [Mass ratio] 14 mg/mg Normal [facility] Comment on above: Performed By: #### CLOTILDE PUGA, CKB ####[facility] (DEFAULT)[address] [place] [address] CKon 01-01-2025 CK [Catalytic activity/Vol] 57 U/L 30 - 184 U/L [facility] CK [Catalytic activity/Vol] 57 U/L Normal 30-[address] [facility] Comment on above: Performed By: #### CLOTILDE PUGA, CKB ####[facility] (DEFAULT)[address] [place] [address] EP PROCEDURE - EPS/ABLATION/ DEVICEon 01-01-2025 EP PROCEDURE - EPS/ABLATION/DEVICE Normal [facility] Electrophysiology studyon Body surface area Derived from formula 2.32 m2 [facility] GLUCOSE POCon 01-01-2025 Glucose [Mass/Vol] 226 mg/dL High 70 - 179 mg/dL [facility] Interpretation and review of laboratory results Abnormal [facility] POC Sample Type CAPBL [facility] Glucose [Mass/Vol] 219 mg/dL High 70 - 179 mg/dL [facility] Interpretation and review of laboratory results Abnormal [facility] POC Sample Type CAPBL [facility] Glucose [Mass/Vol] 198 mg/dL High 70 - 179 mg/dL [facility] Interpretation and review of laboratory results Abnormal [facility] POC Sample Type CAPBL [facility] Glucose [Mass/Vol] 117 mg/dL 70 - 179 mg/dL [facility] POC Sample Type CAPBL [facility] Glucose [Mass/Vol] 115 mg/dL 70 - 179 mg/dL [facility] POC Sample Type CAPBL [facility] MAGNESIUMon 01-01-2025 Magnesium [Mass/Vol] 2.2 mg/dL 1.6 - 2 .6 mg/dL [facility] Magnesium [Mass/Vol] 2.2 mg/dL Normal 1.6-2.[address] [facility] Comment on above: Performed By: #### M GO, CHM7, CKB ####[facility] (DEFAULT)[address] [place] [address] MRI SPINE CERVICAL WITH AND WITHOUT CONTRASTon 01-01-2025 MRI SPINE CERVICAL WITH AND WITHOUT CONTRAST Normal [facility] MRI SPINE LUMBAR WITH AND WI THOUT CONTRASTon 01-01-2025 MRI SPINE LUMBAR WITH AND WITHOUT CONTRAST Normal [facility] MRI SPINE THORACIC WITH AND WITHOUT CONTRASTon 01-01-2025 MRI SPINE THORACIC WITH AND WITHOUT CONTRAST Normal [facility] No Panel Informationon 01-01 RADIOLOGY RADIOLOGY [facility] Interpretation and review of laboratory results Normal [facility] No Panel InformationOrdered By: Bairon Haas on 01-01-2025 [facility] Work Phone: SEDIMENTATION RATE, AUTOMATE Don 01-01-2025 ESR Westergren 84 mm/hr High <[address] [facility] Comment on above: Performed By: #### E SR ####[facility] (DEFAULT)[address] [place] [address] BACTERIAL CULTURE AND DIRECT SMEAR, LESION, TISSUE, DEVICEOrdered By: Eliu Root on 12-31-2024 Bacteria identified Cx Nom (Unsp spec) NO GROWTH DAY 2 OF 2 [facility] BACTERIAL CULTURE AND DIRECT SMEAR, LESION, TISSUE, DEVICEon 12-31-2024 Bacteria identified Cx Nom (Unsp spec) Growth [facility] Bacteria identified Cx Nom (Unsp spec) METHICILLIN RESISTANT STAPHYLOCOCCUS AUREUS Abnormal [facility] BACTERIAL CULTURE AND DIRECT SMEAR, LESION, TISSUE, DEVICEOrdered By: Cherelle Geovany on 12-31-2024 Bacteria identified Cx Nom (Unsp spec) Growth [facility] Bacteria identified Cx Nom (Unsp spec) METHICILLIN RESISTANT STAPHYLOCOCCUS AUREUS Abnormal [facility] BLOOD CULTUREon 12-31-2024 Bacteria identified Cx Nom (Unsp spec) NO GROWTH DAY 5 OF [address] [facility] Comment on above: Order Comment: 2 Bot tles (1 Set - consists of 1 Aerobic bottle and 1 Anaerobic bottle) -1st Peripheral DrawFor vacutainer method draw: Fill aerobic bottle first, then anaerobicResults may be compromised due to LOW VOLUME of the BACT\\ALERT bottle UNDER 8mLs, which can be associated with decreased sensitivity. The optimal blood volume is 8-10mLs per aerobic/anaerobic blood culture bottle. Performed By: #### B LDCULT ####[facility] (DEFAULT)[address] [place] [address] Order Comment: 2 Bot tles (1 Set - consists of 1 Aerobic bottle and 1 Anaerobic bottle) -1st Peripheral DrawFor vacutainer method draw: Fill aerobic bottle first, then anaerobic Bacteria identified Cx Nom ( Unsp spec)Ordered By: Eliu Root on 12-31-2024 Microscopic observation Other stain Nom (Unsp spec) Neutrophils, Rare [facility] Microscopic observation Other stain Nom (Unsp spec) Red Blood Cells Present [facility] Microscopic observation Other stain Nom (Unsp spec) No organisms seen [facility] Bacteria identified Cx Nom ( Unsp spec)on 12-31-2024 Interpretation and review of laboratory results Abnormal [facility] Microscopic observation Other stain Nom (Unsp spec) Neutrophils, None [facility] Microscopic observation Other stain Nom (Unsp spec) Red Blood Cells Present [facility] Microscopic observation Other stain Nom (Unsp spec) No organisms seen [facility] Bacteria identified Cx Nom ( Unsp spec)Ordered By: Cherelle Armenta on 12-31-2024 Interpretation and review of laboratory results Abnormal [facility] Microscopic observation Other stain Nom (Unsp spec) Neutrophils, None [facility] Microscopic observation Other stain Nom (Unsp spec) Red Blood Cells Present [facility] Microscopic observation Other stain Nom (Unsp spec) Positive [facility] CBC AND ELECTRONIC DIFFon Basophils (Bld) [#/Vol] 0.04 10*3/uL Normal 0.00-0.[address] [facility] Comment on above: Performed By: #### L [id number] ####[facility] (DEFAULT)[address] [place] [address] Basophils/100 WBC (Bld) 0.4 % Normal [facility] Comment on above: Performed By: #### L AB980 ####[facility] (DEFAULT)[address] [place] [address] DIFF STATUS Electronic Differential Normal [facility] Comment on above: Performed By: #### L AB980 ####[facility] (DEFAULT)[address] [place] [address] Eosinophils (Bld) [#/Vol] 0.28 10*3/uL Normal 0.00-0.[address] [facility] Comment on above: Performed By: #### L AB980 ####[facility] (DEFAULT)[address] [place] [address] Eosinophils/100 WBC (Bld) 3.0 % Normal [facility] Comment on above: Performed By: #### L AB980 ####[facility] (DEFAULT)[address] [place] [address] Hematocrit (Bld) [Volume fraction] 30.8 % Low 34.9-44.[address] [facility] Comment on above: Performed By: #### L AB980 ####[facility] (DEFAULT)[address] [place] [address] Hemoglobin (Bld) [Mass/Vol] 10.0 g/dL Low 11.4-15.[address] [facility] Comment on above: Performed By: #### L AB980 ####[facility] (DEFAULT)[address] [place] [address] Immature Grans % 0.5 % Normal [facility] Comment on above: Performed By: #### L AB980 ####[facility] (DEFAULT)[address] [place] [address] Immature Grans Absolute 0.05 K/uL Normal <=0.[address] [facility] Comment on above: Performed By: #### L AB980 ####[facility] (DEFAULT)[address] [place] [address] Lymphocytes (Bld) [#/Vol] 2.05 10*3/uL Normal 1.16-3.[address] [facility] Comment on above: Performed By: #### L AB980 ####[facility] (DEFAULT)[address] [place] [address] Lymphocytes/100 WBC (Bld) 22.3 % Normal [facility] Comment on above: Performed By: #### L AB980 ####[facility] (DEFAULT)[address] [place] [address], [place] [address] MCV (RBC) [Entitic vol] 87.7 fL Normal 79.6-97.[address] [facility] Comment on above: Performed By: #### L AB980 ####[facility] (DEFAULT)[address] [place] [address] Mean Cell Hgb 28.5 pg Normal 25.9-33.[address] [facility] Comment on above: Performed By: #### L AB980 ####[facility] (DEFAULT)[address] [place] [address] Mean Cell Hgb Conc 32.5 g/dL Normal 31.4-35.9 [facility] Comment on above: Performed By: #### L AB980 ####[facility] (DEFAULT)[address] [place] [address] Monocytes (Bld) [#/Vol] 1.05 10*3/uL High 0.22-0.87 [facility] [facility] Comment on above: Performed By: #### L [id number] ####[facility] (DEFAULT)[address] [place] [address] Monocytes/100 WBC (Bld) 11.4 % Normal [facility] Comment on above: Performed By: #### L [id number] ####[facility] (DEFAULT)[address] [place] [address] Nucleated RBC 0.0 /100 WBC Normal <=0.2 [facility] Comment on above: Performed By: #### L [id number] ####[facility] (DEFAULT)[address] [place] [address] Platelet mean volume (Bld) [Entitic vol] 9.9 fL Normal 8.5-12.[address] [facility] Comment on above: Performed By: #### L [id number] ####[facility] (DEFAULT)[address] [place] [address] Platelets (Bld) [#/Vol] 170 10*3/uL Normal 150-[address] [facility] Comment on above: Performed By: #### L [id number] ####[facility] (DEFAULT)[address] [place] [address] RBC (Bld) [#/Vol] 3.51 10*6/uL Low 3.91-5.[address] [facility] Comment on above: Performed By: #### L [id number] ####[facility] (DEFAULT)[address] [place] [address] RBC Distribution 14.3 % Normal 10.8-14.9 [facility] Comment on above: Performed By: #### L [id number] ####[facility] (DEFAULT)[address] [place] [address] Segs + Bands Auto 62.4 % Normal [facility] Comment on above: Performed By: #### L [id number] ####[facility] (DEFAULT)[address] [place] [address] Segs + Bands,Absolute Auto 5.72 K/uL Normal 1.64-7.[address] [facility] Comment on above: Performed By: #### L [id number] ####[facility] (DEFAULT)[address] [place] [address] WBC (Bld) [#/Vol] 9.19 10*3/uL Normal 3.99-11.[address] [facility] Comment on above: Performed By: #### L [id number] ####[facility] (DEFAULT)[address] [place] [address] CHEM 7 (LYTES,BUN,CREA,GLUC) on 12-31-2024 Anion gap [Moles/Vol] 11 mmol/L Normal 7-17 [facility] Comment on above: Performed By: #### CLOTILDE PUGA ####[facility] (DEFAULT)[address] [facility] [place] [address] Chloride [Moles/Vol] 99 mmol/L Normal 98-[address] [facility] Comment on above: Performed By: #### CLOTILDE PUGA ####[facility] (DEFAULT)[address] [place] [address] CO2 [Moles/Vol] 25 mmol/L Normal 21-31 [facility] Comment on above: Performed By: #### CLOTILDE PUGA ####[facility] (DEFAULT)[address] [place] [address] Creatinine [Mass/Vol] 0.81 mg/dL Normal 0.50-1.20 [facility] Comment on above: Performed By: #### Shanell CHANG CHM7 ####[facility] (DEFAULT)[address] [facility] [place] [address] GFR/1.73 sq M.predicted among non-blacks MDRD (S/P/Bld) [Vol rate/Area] 84 mL/min/{1.73_m2} Normal >=[address] [facility] Comment on above: Result Comment: Repo rted eGFR is based on the CKD-EPI 2020 equation using creatinine, age, and sex. Performed By: #### CLARISSA PUGA7 ####[facility] (DEFAULT)[address] [place] [address] Glucose [Mass/Vol] 153 mg/dL Normal Nonfastin -179 mg/dL; Fastin-[address] [facility] Comment on above: Performed By: #### CLOTILDE PUGA ####[facility] (DEFAULT)[address] [place] [address] Osmolality [Osmolality] 278 mosm/kg Normal 278-[address] [facility] Comment on above: Performed By: #### Shanell CHANG CHM7 ####[facility] (DEFAULT)[address] [place] [address] Potassium [Moles/Vol] 3.9 mmol/L Normal 3.5-5.0 [facility] Comment on above: Performed By: #### Shanell CHANG CHM7 ####[facility] (DEFAULT)[address] [facility] [place] [address] Sodium [Moles/Vol] 131 mmol/L Low 135-145 [facility] Comment on above: Performed By: #### Shanell CHANG CHM7 ####[facility] (DEFAULT)[address] [place] [address] Urea nitrogen [Mass/Vol] 10 mg/dL Normal 7-[address] [facility] Comment on above: Performed By: #### CLOTILDE PUGA ####[facility] (DEFAULT)[address] [place] [address] Urea nitrogen/Creatinine [Mass ratio] 12 mg/mg Normal [facility] Comment on above: Performed By: #### CLOTILDE PUGA ####[facility] (DEFAULT)[address] [place] [address] GLUCOSE POCon 12-31-2024 Glucose [Mass/Vol] 207 mg/dL High 70 - 179 mg/dL [facility] Interpretation and review of laboratory results Abnormal [facility] POC Sample Type CAPBL [facility] Glucose [Mass/Vol] 197 mg/dL High 70 - 179 mg/dL [facility] Interpretation and review of laboratory results Abnormal [facility] POC Sample Type CAPBL [facility] Glucose [Mass/Vol] 305 mg/dL High 70 - 179 mg/dL [facility] Interpretation and review of laboratory results Abnormal [facility] POC Sample Type CAPBL [facility] MAGNESIUMon 12-31-2024 Magnesium [Mass/Vol] 1.9 mg/dL Normal 1.6-2.[address] [facility] Comment on above: Performed By: #### CLOTILDE PUGA ####[facility] (DEFAULT)[address] [place] [address] MR Cervical spine WO and W c ontrast Yodit 12-31-2024 Radiology Study observation (narrative) [facility] Lumbar spine WO and W con trast Yodit 12-31-2024 Radiology Study observation (narrative) [facility] MR Thoracic spine WO and W c ontrast Yodit 12-31-2024 Radiology Study observation (narrative) [facility] Portable XR Chest Viewson RADIOLOGY RADIOLOGY [facility] Radiology Study observation (narrative) [facility] XR CHEST 1 VIEW PORTABLEon 0 12-31-2024 XR CHEST 1 VIEW PORTABLE Normal [facility] BLOOD CULTUREon 12-30-2024 Bacteria identified Cx Nom (Unsp spec) Normal [facility] Comment on above: Order Comment: 2 Bot tles (1 Set - consists of 1 Aerobic bottle and 1 Anaerobic bottle) -1st Peripheral DrawFor vacutainer method draw: Fill aerobic bottle first, then anaerobicResults may be compromised due to HIGH VOLUME of the BACT\\ALERT bottle EXCEEDING 10mLs, which can be associated with increased contamination. The optimal blood volume is 8-10mLs per aerobic/anaerobic blood culture bottle. Result Comment: Grow [id number] Resistant Staphylococcus aureusRefer to specimen [id number] on 12/30/2024 for susceptibilities.Identification was performed on the MALDI-TOF mass spectrometer [employer]JHyper. This test was developed by [facility]. It has not been cleared or approved by the FDA. The laboratory is regulated under CLIA as qualified to perform high-complexity testing. This test is used for clinical purposes. It should not be regarded as investigational or for research. Performed By: #### B LDCULT ####[facility] (DEFAULT)[address] [place] [address] Ceftaroline [Susceptibility] 0.5 ug/mL Invalid Interpretation Code [facility] Comment on above: Order Comment: 2 Bot tles (1 Set - consists of 1 Aerobic bottle and 1 Anaerobic bottle) -1st Peripheral DrawFor vacutainer method draw: Fill aerobic bottle first, then anaerobicResults may be compromised due to HIGH VOLUME of the BACT\\ALERT bottle EXCEEDING 10mLs, which can be associated with increased contamination. The optimal blood volume is 8-10mLs per aerobic/anaerobic blood culture bottle. Performed By: #### B LOOD CULTURE IDENTIFICATION PANEL, BLDCULT ####[facility] (DEFAULT)[address] [place] [address] Clindamycin [Susceptibility] 0.25 ug/mL Resistant [facility] Comment on above: Order Comment: 2 Bot tles (1 Set - consists of 1 Aerobic bottle and 1 Anaerobic bottle) -1st Peripheral DrawFor vacutainer method draw: Fill aerobic bottle first, then anaerobicResults may be compromised due to HIGH VOLUME of the BACT\\ALERT bottle EXCEEDING 10mLs, which can be associated with increased contamination. The optimal blood volume is 8-10mLs per aerobic/anaerobic blood culture bottle. Performed By: #### B LOOD CULTURE IDENTIFICATION PANEL, BLDCULT ####[facility] (DEFAULT)[address] [address] DAPTOmycin [Susceptibility] 0.25 ug/mL Invalid Interpretation Code [facility] Comment on above: Order Comment: 2 Bot tles (1 Set - consists of 1 Aerobic bottle and 1 Anaerobic bottle) -1st Peripheral DrawFor vacutainer method draw: Fill aerobic bottle first, then anaerobicResults may be compromised due to HIGH VOLUME of the BACT\\ALERT bottle EXCEEDING 10mLs, which can be associated with increased contamination. The optimal blood volume is 8-10mLs per aerobic/anaerobic blood culture bottle. Performed By: #### B LOOD CULTURE IDENTIFICATION PANEL, BLDCULT ####[facility] (DEFAULT)[address] [place] [address] Oxacillin [Susceptibility] by Minimum inhibitory concentration (ABBEY) >= Resistant [facility] Comment on above: Order Comment: 2 Bot tles (1 Set - consists of 1 Aerobic bottle and 1 Anaerobic bottle) -1st Peripheral DrawFor vacutainer method draw: Fill aerobic bottle first, then anaerobicResults may be compromised due to HIGH VOLUME of the BACT\\ALERT bottle EXCEEDING 10mLs, which can be associated with increased contamination. The optimal blood volume is 8-10mLs per aerobic/anaerobic blood culture bottle. Result Comment: Cont act Isolation is NOT required for inpatients with Methicillin Resistant Staphylococcus aureus (MRSA), use standard precautions and follow the isolation policy in regards to any additional need for isolation (eg. open draining wounds). Performed By: #### B LOOD CULTURE IDENTIFICATION PANEL, BLDCULT ####[facility] (DEFAULT)[address] [place] [address] Penicillin [Susceptibility] >= Resistant [facility] Comment on above: Order Comment: 2 Bot tles (1 Set - consists of 1 Aerobic bottle and 1 Anaerobic bottle) -1st Peripheral DrawFor vacutainer method draw: Fill aerobic bottle first, then anaerobicResults may be compromised due to HIGH VOLUME of the BACT\\ALERT bottle EXCEEDING 10mLs, which can be associated with increased contamination. The optimal blood volume is 8-10mLs per aerobic/anaerobic blood culture bottle. Performed By: #### B LOOD CULTURE IDENTIFICATION PANEL, BLDCULT ####[facility] (DEFAULT)[address] [place] [address] rifAMPin [Susceptibility] by Minimum inhibitory concentration (ABBEY) <= Invalid Interpretation Code [facility] Comment on above: Order Comment: 2 Bot tles (1 Set - consists of 1 Aerobic bottle and 1 Anaerobic bottle) -1st Peripheral DrawFor vacutainer method draw: Fill aerobic bottle first, then anaerobicResults may be compromised due to HIGH VOLUME of the BACT\\ALERT bottle EXCEEDING 10mLs, which can be associated with increased contamination. The optimal blood volume is 8-10mLs per aerobic/anaerobic blood culture bottle. Result Comment: Rifa mpin must never be used as monotherapy for Staphylococcal infection because of the rapid emergence of resistance. Performed By: #### B LOOD CULTURE IDENTIFICATION PANEL, BLDCULT ####[facility] (DEFAULT)[address] [place] [address] Tetracycline [Susceptibility] <= Invalid Interpretation Code [facility] Comment on above: Order Comment: 2 Bot tles (1 Set - consists of 1 Aerobic bottle and 1 Anaerobic bottle) -1st Peripheral DrawFor vacutainer method draw: Fill aerobic bottle first, then anaerobicResults may be compromised due to HIGH VOLUME of the BACT\\ALERT bottle EXCEEDING 10mLs, which can be associated with increased contamination. The optimal blood volume is 8-10mLs per aerobic/anaerobic blood culture bottle. Result Comment: Doxy cycline/minocycline S. aureus susceptibility can be inferred from the tetracycline ABBEY when tetracycline susceptible Performed By: #### B LOOD CULTURE IDENTIFICATION PANEL, BLDCULT ####[facility] (DEFAULT)[address] [place] [address] Trimethoprim+Sulfameth oxazole [Susceptibility] <= Invalid Interpretation Code [facility] Comment on above: Order Comment: 2 Bot tles (1 Set - consists of 1 Aerobic bottle and 1 Anaerobic bottle) -1st Peripheral DrawFor vacutainer method draw: Fill aerobic bottle first, then anaerobicResults may be compromised due to HIGH VOLUME of the BACT\\ALERT bottle EXCEEDING 10mLs, which can be associated with increased contamination. The optimal blood volume is 8-10mLs per aerobic/anaerobic blood culture bottle. Performed By: #### B LOOD CULTURE IDENTIFICATION PANEL, BLDCULT ####[facility] (DEFAULT)[address] [place] [address] Vancomycin [Susceptibility] <= Invalid Interpretation Code [facility] Comment on above: Order Comment: 2 Bot tles (1 Set - consists of 1 Aerobic bottle and 1 Anaerobic bottle) -1st Peripheral DrawFor vacutainer method draw: Fill aerobic bottle first, then anaerobicResults may be compromised due to HIGH VOLUME of the BACT\\ALERT bottle EXCEEDING 10mLs, which can be associated with increased contamination. The optimal blood volume is 8-10mLs per aerobic/anaerobic blood culture bottle. Performed By: #### B LOOD CULTURE IDENTIFICATION PANEL, BLDCULT ####[facility] (DEFAULT)[address] [place] [address] BLOOD CULTURE IDENTIFICATION PANELon 12-30-2024 Acinetobacter calcoaceticus-baumanni i complex DNA Not detected Normal Not Detected [facility] Comment on above: Order Comment: 2 Bot tles (1 Set - consists of 1 Aerobic bottle and 1 Anaerobic bottle) -1st Peripheral DrawFor vacutainer method draw: Fill aerobic bottle first, then anaerobicResults may be compromised due to HIGH VOLUME of the BACT\\ALERT bottle EXCEEDING 10mLs, which can be associated with increased contamination. The optimal blood volume is 8-10mLs per aerobic/anaerobic blood culture bottle.This test was performed using a multiplex nucleic acid test that detects and identifies multiple bacterial and yeast nucleic acids and select genetic determinants associated with antimicrobial resistance. Culture is necessary to confirm susceptibilities and identify organisms not detected by this test. A Not Detected result for a genetic marker of antimicrobial resistance does not indicate susceptibility to associated antimicrobial drugs or drug classes. Results should be used in conjunction with other clinical and laboratory findings. Performed By: #### B MozendaOD CULTURE IDENTIFICATION PANEL, BLDCULT ####[facility] (DEFAULT)[address] [address] Bacteroides fragilis DNA Not detected Normal Not Detected [facility] Comment on above: Order Comment: 2 Bot tles (1 Set - consists of 1 Aerobic bottle and 1 Anaerobic bottle) -1st Peripheral DrawFor vacutainer method draw: Fill aerobic bottle first, then anaerobicResults may be compromised due to HIGH VOLUME of the BACT\\ALERT bottle EXCEEDING 10mLs, which can be associated with increased contamination. The optimal blood volume is 8-10mLs per aerobic/anaerobic blood culture bottle.This test was performed using a multiplex nucleic acid test that detects and identifies multiple bacterial and yeast nucleic acids and select genetic determinants associated with antimicrobial resistance. Culture is necessary to confirm susceptibilities and identify organisms not detected by this test. A Not Detected result for a genetic marker of antimicrobial resistance does not indicate susceptibility to associated antimicrobial drugs or drug classes. Results should be used in conjunction with other clinical and laboratory findings. Performed By: #### B LOOD CULTURE IDENTIFICATION PANEL, BLDCULT ####[facility] (DEFAULT)[address] [address] Perla albicans DNA Not detected Normal Not Detected [facility] Comment on above: Order Comment: 2 Bot tles (1 Set - consists of 1 Aerobic bottle and 1 Anaerobic bottle) -1st Peripheral DrawFor vacutainer method draw: Fill aerobic bottle first, then anaerobicResults may be compromised due to HIGH VOLUME of the BACT\\ALERT bottle EXCEEDING 10mLs, which can be associated with increased contamination. The optimal blood volume is 8-10mLs per aerobic/anaerobic blood culture bottle.This test was performed using a multiplex nucleic acid test that detects and identifies multiple bacterial and yeast nucleic acids and select genetic determinants associated with antimicrobial resistance. Culture is necessary to confirm susceptibilities and identify organisms not detected by this test. A Not Detected result for a genetic marker of antimicrobial resistance does not indicate susceptibility to associated antimicrobial drugs or drug classes. Results should be used in conjunction with other clinical and laboratory findings. Performed By: #### B LOOD CULTURE IDENTIFICATION PANEL, BLDCULT ####[facility] (DEFAULT)[address] [place] [address] Perla auris DNA Not detected Normal Not Detected [facility] Comment on above: Order Comment: 2 Bot tles (1 Set - consists of 1 Aerobic bottle and 1 Anaerobic bottle) -1st Peripheral DrawFor vacutainer method draw: Fill aerobic bottle first, then anaerobicResults may be compromised due to HIGH VOLUME of the BACT\\ALERT bottle EXCEEDING 10mLs, which can be associated with increased contamination. The optimal blood volume is 8-10mLs per aerobic/anaerobic blood culture bottle.This test was performed using a multiplex nucleic acid test that detects and identifies multiple bacterial and yeast nucleic acids and select genetic determinants associated with antimicrobial resistance. Culture is necessary to confirm susceptibilities and identify organisms not detected by this test. A Not Detected result for a genetic marker of antimicrobial resistance does not indicate susceptibility to associated antimicrobial drugs or drug classes. Results should be used in conjunction with other clinical and laboratory findings. Performed By: #### B LOOD CULTURE IDENTIFICATION PANEL, BLDCULT ####[facility] (DEFAULT)[address] [place] [address] Perla glabrata DNA Not detected Normal Not Detected [facility] Comment on above: Order Comment: 2 Bot tles (1 Set - consists of 1 Aerobic bottle and 1 Anaerobic bottle) -1st Peripheral DrawFor vacutainer method draw: Fill aerobic bottle first, then anaerobicResults may be compromised due to HIGH VOLUME of the BACT\\ALERT bottle EXCEEDING 10mLs, which can be associated with increased contamination. The optimal blood volume is 8-10mLs per aerobic/anaerobic blood culture bottle.This test was performed using a multiplex nucleic acid test that detects and identifies multiple bacterial and yeast nucleic acids and select genetic determinants associated with antimicrobial resistance. Culture is necessary to confirm susceptibilities and identify organisms not detected by this test. A Not Detected result for a genetic marker of antimicrobial resistance does not indicate susceptibility to associated antimicrobial drugs or drug classes. Results should be used in conjunction with other clinical and laboratory findings. Performed By: #### B LOOD CULTURE IDENTIFICATION PANEL, BLDCULT ####[facility] (DEFAULT)[address] [place] [address] Perla krusei DNA Not detected Normal Not Detected [facility] Comment on above: Order Comment: 2 Bot tles (1 Set - consists of 1 Aerobic bottle and 1 Anaerobic bottle) -1st Peripheral DrawFor vacutainer method draw: Fill aerobic bottle first, then anaerobicResults may be compromised due to HIGH VOLUME of the BACT\\ALERT bottle EXCEEDING 10mLs, which can be associated with increased contamination. The optimal blood volume is 8-10mLs per aerobic/anaerobic blood culture bottle.This test was performed using a multiplex nucleic acid test that detects and identifies multiple bacterial and yeast nucleic acids and select genetic determinants associated with antimicrobial resistance. Culture is necessary to confirm susceptibilities and identify organisms not detected by this test. A Not Detected result for a genetic marker of antimicrobial resistance does not indicate susceptibility to associated antimicrobial drugs or drug classes. Results should be used in conjunction with other clinical and laboratory findings. Performed By: #### B [employer] CULTURE IDENTIFICATION PANEL, BLDCULT ####[facility] (DEFAULT)[address] [place] [address] Perla parapsilosis DNA Not detected Normal Not Detected [facility] Comment on above: Order Comment: 2 Bot tles (1 Set - consists of 1 Aerobic bottle and 1 Anaerobic bottle) -1st Peripheral DrawFor vacutainer method draw: Fill aerobic bottle first, then anaerobicResults may be compromised due to HIGH VOLUME of the BACT\\ALERT bottle EXCEEDING 10mLs, which can be associated with increased contamination. The optimal blood volume is 8-10mLs per aerobic/anaerobic blood culture bottle.This test was performed using a multiplex nucleic acid test that detects and identifies multiple bacterial and yeast nucleic acids and select genetic determinants associated with antimicrobial resistance. Culture is necessary to confirm susceptibilities and identify organisms not detected by this test. A Not Detected result for a genetic marker of antimicrobial resistance does not indicate susceptibility to associated antimicrobial drugs or drug classes. Results should be used in conjunction with other clinical and laboratory findings. Performed By: #### B MozendaOD CULTURE IDENTIFICATION PANEL, BLDCULT ####[facility] (DEFAULT)[address] [place] [address] Perla tropicalis DNA Not detected Normal Not Detecte d [facility] Comment on above: Order Comment: 2 Bot tles (1 Set - consists of 1 Aerobic bottle and 1 Anaerobic bottle) -1st Peripheral DrawFor vacutainer method draw: Fill aerobic bottle first, then anaerobicResults may be compromised due to HIGH VOLUME of the BACT\\ALERT bottle EXCEEDING 10mLs, which can be associated with increased contamination. The optimal blood volume is 8-10mLs per aerobic/anaerobic blood culture bottle.This test was performed using a multiplex nucleic acid test that detects and identifies multiple bacterial and yeast nucleic acids and select genetic determinants associated with antimicrobial resistance. Culture is necessary to confirm susceptibilities and identify organisms not detected by this test. A Not Detected result for a genetic marker of antimicrobial resistance does not indicate susceptibility to associated antimicrobial drugs or drug classes. Results should be used in conjunction with other clinical and laboratory findings. Performed By: #### B [employer] CULTURE IDENTIFICATION PANEL, BLDCULT ####[facility] (DEFAULT)[address] [address] Cryptococcus nyasia/neoformans DNA Not detected Normal Not Detected [facility] Comment on above: Order Comment: 2 Bot tles (1 Set - consists of 1 Aerobic bottle and 1 Anaerobic bottle) -1st Peripheral DrawFor vacutainer method draw: Fill aerobic bottle first, then anaerobicResults may be compromised due to HIGH VOLUME of the BACT\\ALERT bottle EXCEEDING 10mLs, which can be associated with increased contamination. The optimal blood volume is 8-10mLs per aerobic/anaerobic blood culture bottle.This test was performed using a multiplex nucleic acid test that detects and identifies multiple bacterial and yeast nucleic acids and select genetic determinants associated with antimicrobial resistance. Culture is necessary to confirm susceptibilities and identify organisms not detected by this test. A Not Detected result for a genetic marker of antimicrobial resistance does not indicate susceptibility to associated antimicrobial drugs or drug classes. Results should be used in conjunction with other clinical and laboratory findings. Performed By: #### B [employer] CULTURE IDENTIFICATION PANEL, BLDCULT ####[facility] (DEFAULT)[address] [place] [id number] Enterobacter cloacae complex DNA Not detected Normal Not Detected [facility] Comment on above: Order Comment: 2 Bot tles (1 Set - consists of 1 Aerobic bottle and 1 Anaerobic bottle) -1st Peripheral DrawFor vacutainer method draw: Fill aerobic bottle first, then anaerobicResults may be compromised due to HIGH VOLUME of the BACT\\ALERT bottle EXCEEDING 10mLs, which can be associated with increased contamination. The optimal blood volume is 8-10mLs per aerobic/anaerobic blood culture bottle.This test was performed using a multiplex nucleic acid test that detects and identifies multiple bacterial and yeast nucleic acids and select genetic determinants associated with antimicrobial resistance. Culture is necessary to confirm susceptibilities and identify organisms not detected by this test. A Not Detected result for a genetic marker of antimicrobial resistance does not indicate susceptibility to associated antimicrobial drugs or drug classes. Results should be used in conjunction with other clinical and laboratory findings. Performed By: #### B [employer] CULTURE IDENTIFICATION PANEL, BLDCULT ####[facility] (DEFAULT)[address] [place] [id number] Enterobacterales DNA Not detected Normal Not Detected [facility] Comment on above: Order Comment: 2 Bot tles (1 Set - consists of 1 Aerobic bottle and 1 Anaerobic bottle) -1st Peripheral DrawFor vacutainer method draw: Fill aerobic bottle first, then anaerobicResults may be compromised due to HIGH VOLUME of the BACT\\ALERT bottle EXCEEDING 10mLs, which can be associated with increased contamination. The optimal blood volume is 8-10mLs per aerobic/anaerobic blood culture bottle.This test was performed using a multiplex nucleic acid test that detects and identifies multiple bacterial and yeast nucleic acids and select genetic determinants associated with antimicrobial resistance. Culture is necessary to confirm susceptibilities and identify organisms not detected by this test. A Not Detected result for a genetic marker of antimicrobial resistance does not indicate susceptibility to associated antimicrobial drugs or drug classes. Results should be used in conjunction with other clinical and laboratory findings. Performed By: #### B [employer] CULTURE IDENTIFICATION PANEL, BLDCULT ####[facility] (DEFAULT)[address] [place] [address] Enterococcus faecalis DNA Not detected Normal Not Detected [facility] Comment on above: Order Comment: 2 Bot tles (1 Set - consists of 1 Aerobic bottle and 1 Anaerobic bottle) -1st Peripheral DrawFor vacutainer method draw: Fill aerobic bottle first, then anaerobicResults may be compromised due to HIGH VOLUME of the BACT\\ALERT bottle EXCEEDING 10mLs, which can be associated with increased contamination. The optimal blood volume is 8-10mLs per aerobic/anaerobic blood culture bottle.This test was performed using a multiplex nucleic acid test that detects and identifies multiple bacterial and yeast nucleic acids and select genetic determinants associated with antimicrobial resistance. Culture is necessary to confirm susceptibilities and identify organisms not detected by this test. A Not Detected result for a genetic marker of antimicrobial resistance does not indicate susceptibility to associated antimicrobial drugs or drug classes. Results should be used in conjunction with other clinical and laboratory findings. Performed By: #### B [employer] CULTURE IDENTIFICATION PANEL, BLDCULT ####[facility] (DEFAULT)[address] [place] [phone] Enterococcus faecium DNA Not detected Normal Not Detected [facility] Comment on above: Order Comment: 2 Bot tles (1 Set - consists of 1 Aerobic bottle and 1 Anaerobic bottle) -1st Peripheral DrawFor vacutainer method draw: Fill aerobic bottle first, then anaerobicResults may be compromised due to HIGH VOLUME of the BACT\\ALERT bottle EXCEEDING 10mLs, which can be associated with increased contamination. The optimal blood volume is 8-10mLs per aerobic/anaerobic blood culture bottle.This test was performed using a multiplex nucleic acid test that detects and identifies multiple bacterial and yeast nucleic acids and select genetic determinants associated with antimicrobial resistance. Culture is necessary to confirm susceptibilities and identify organisms not detected by this test. A Not Detected result for a genetic marker of antimicrobial resistance does not indicate susceptibility to associated antimicrobial drugs or drug classes. Results should be used in conjunction with other clinical and laboratory findings. Performed By: #### [employer] CULTURE IDENTIFICATION PANEL, BLDCULT ####[facility] (DEFAULT)[address] [place] [id number] Escherichia coli DNA Not detected Normal Not Detected [facility] Comment on above: Order Comment: 2 Bot tles (1 Set - consists of 1 Aerobic bottle and 1 Anaerobic bottle) -1st Peripheral DrawFor vacutainer method draw: Fill aerobic bottle first, then anaerobicResults may be compromised due to HIGH VOLUME of the BACT\\ALERT bottle EXCEEDING 10mLs, which can be associated with increased contamination. The optimal blood volume is 8-10mLs per aerobic/anaerobic blood culture bottle.This test was performed using a multiplex nucleic acid test that detects and identifies multiple bacterial and yeast nucleic acids and select genetic determinants associated with antimicrobial resistance. Culture is necessary to confirm susceptibilities and identify organisms not detected by this test. A Not Detected result for a genetic marker of antimicrobial resistance does not indicate susceptibility to associated antimicrobial drugs or drug classes. Results should be used in conjunction with other clinical and laboratory findings. Performed By: #### B [employer] CULTURE IDENTIFICATION PANEL, BLDCULT ####[facility] (DEFAULT)[address] [place] [address] Haemophilus influenzae DNA Not detected Normal Not Detected [facility] Comment on above: Order Comment: 2 Bot tles (1 Set - consists of 1 Aerobic bottle and 1 Anaerobic bottle) -1st Peripheral DrawFor vacutainer method draw: Fill aerobic bottle first, then anaerobicResults may be compromised due to HIGH VOLUME of the BACT\\ALERT bottle EXCEEDING 10mLs, which can be associated with increased contamination. The optimal blood volume is 8-10mLs per aerobic/anaerobic blood culture bottle.This test was performed using a multiplex nucleic acid test that detects and identifies multiple bacterial and yeast nucleic acids and select genetic determinants associated with antimicrobial resistance. Culture is necessary to confirm susceptibilities and identify organisms not detected by this test. A Not Detected result for a genetic marker of antimicrobial resistance does not indicate susceptibility to associated antimicrobial drugs or drug classes. Results should be used in conjunction with other clinical and laboratory findings. Performed By: #### [employer] CULTURE IDENTIFICATION PANEL, BLDCULT ####[facility] (DEFAULT)[address] [place] [id number] Klebsiella aerogenes DNA Not detected Normal Not Detected [facility] Comment on above: Order Comment: 2 Bot tles (1 Set - consists of 1 Aerobic bottle and 1 Anaerobic bottle) -1st Peripheral DrawFor vacutainer method draw: Fill aerobic bottle first, then anaerobicResults may be compromised due to HIGH VOLUME of the BACT\\ALERT bottle EXCEEDING 10mLs, which can be associated with increased contamination. The optimal blood volume is 8-10mLs per aerobic/anaerobic blood culture bottle.This test was performed using a multiplex nucleic acid test that detects and identifies multiple bacterial and yeast nucleic acids and select genetic determinants associated with antimicrobial resistance. Culture is necessary to confirm susceptibilities and identify organisms not detected by this test. A Not Detected result for a genetic marker of antimicrobial resistance does not indicate susceptibility to associated antimicrobial drugs or drug classes. Results should be used in conjunction with other clinical and laboratory findings. Performed By: #### B LOOD CULTURE IDENTIFICATION PANEL, BLDCULT ####[facility] (DEFAULT)[address] [place] [address] Klebsiella oxytoca DNA Not detected Normal Not Detecte d [facility] Comment on above: Order Comment: 2 Bot tles (1 Set - consists of 1 Aerobic bottle and 1 Anaerobic bottle) -1st Peripheral DrawFor vacutainer method draw: Fill aerobic bottle first, then anaerobicResults may be compromised due to HIGH VOLUME of the BACT\\ALERT bottle EXCEEDING 10mLs, which can be associated with increased contamination. The optimal blood volume is 8-10mLs per aerobic/anaerobic blood culture bottle.This test was performed using a multiplex nucleic acid test that detects and identifies multiple bacterial and yeast nucleic acids and select genetic determinants associated with antimicrobial resistance. Culture is necessary to confirm susceptibilities and identify organisms not detected by this test. A Not Detected result for a genetic marker of antimicrobial resistance does not indicate susceptibility to associated antimicrobial drugs or drug classes. Results should be used in conjunction with other clinical and laboratory findings. Performed By: #### B LOOD CULTURE IDENTIFICATION PANEL, BLDCULT ####[facility] (DEFAULT)[address] [place] [address] Klebsiella pneumoniae group DNA Not detected Normal Not Detected [facility] Comment on above: Order Comment: 2 Bot tles (1 Set - consists of 1 Aerobic bottle and 1 Anaerobic bottle) -1st Peripheral DrawFor vacutainer method draw: Fill aerobic bottle first, then anaerobicResults may be compromised due to HIGH VOLUME of the BACT\\ALERT bottle EXCEEDING 10mLs, which can be associated with increased contamination. The optimal blood volume is 8-10mLs per aerobic/anaerobic blood culture bottle.This test was performed using a multiplex nucleic acid test that detects and identifies multiple bacterial and yeast nucleic acids and select genetic determinants associated with antimicrobial resistance. Culture is necessary to confirm susceptibilities and identify organisms not detected by this test. A Not Detected result for a genetic marker of antimicrobial resistance does not indicate susceptibility to associated antimicrobial drugs or drug classes. Results should be used in conjunction with other clinical and laboratory findings. Performed By: #### B LOOD CULTURE IDENTIFICATION PANEL, BLDCULT ####[facility] (DEFAULT)[address] [place] [address] Listeria monocytogenes DNA Not detected Normal Not Detected [facility] Comment on above: Order Comment: 2 Bot tles (1 Set - consists of 1 Aerobic bottle and 1 Anaerobic bottle) -1st Peripheral DrawFor vacutainer method draw: Fill aerobic bottle first, then anaerobicResults may be compromised due to HIGH VOLUME of the BACT\\ALERT bottle EXCEEDING 10mLs, which can be associated with increased contamination. The optimal blood volume is 8-10mLs per aerobic/anaerobic blood culture bottle.This test was performed using a multiplex nucleic acid test that detects and identifies multiple bacterial and yeast nucleic acids and select genetic determinants associated with antimicrobial resistance. Culture is necessary to confirm susceptibilities and identify organisms not detected by this test. A Not Detected result for a genetic marker of antimicrobial resistance does not indicate susceptibility to associated antimicrobial drugs or drug classes. Results should be used in conjunction with other clinical and laboratory findings. Performed By: #### [employer] CULTURE IDENTIFICATION PANEL, BLDCULT ####[facility] (DEFAULT)[address] [place] [id number] mecA/C and MREJ (MRSA) Detected Abnormal Not Detected [facility] Comment on above: Order Comment: 2 Bot tles (1 Set - consists of 1 Aerobic bottle and 1 Anaerobic bottle) -1st Peripheral DrawFor vacutainer method draw: Fill aerobic bottle first, then anaerobicResults may be compromised due to HIGH VOLUME of the BACT\\ALERT bottle EXCEEDING 10mLs, which can be associated with increased contamination. The optimal blood volume is 8-10mLs per aerobic/anaerobic blood culture bottle.This test was performed using a multiplex nucleic acid test that detects and identifies multiple bacterial and yeast nucleic acids and select genetic determinants associated with antimicrobial resistance. Culture is necessary to confirm susceptibilities and identify organisms not detected by this test. A Not Detected result for a genetic marker of antimicrobial resistance does not indicate susceptibility to associated antimicrobial drugs or drug classes. Results should be used in conjunction with other clinical and laboratory findings. Performed By: #### B LOOD CULTURE IDENTIFICATION PANEL, BLDCULT ####[facility] (DEFAULT)[address] [place] [place] [address] Neisseria meningitidis DNA Not detected Normal Not Detected [facility] Comment on above: Order Comment: 2 Bot tles (1 Set - consists of 1 Aerobic bottle and 1 Anaerobic bottle) -1st Peripheral DrawFor vacutainer method draw: Fill aerobic bottle first, then anaerobicResults may be compromised due to HIGH VOLUME of the BACT\\ALERT bottle EXCEEDING 10mLs, which can be associated with increased contamination. The optimal blood volume is 8-10mLs per aerobic/anaerobic blood culture bottle.This test was performed using a multiplex nucleic acid test that detects and identifies multiple bacterial and yeast nucleic acids and select genetic determinants associated with antimicrobial resistance. Culture is necessary to confirm susceptibilities and identify organisms not detected by this test. A Not Detected result for a genetic marker of antimicrobial resistance does not indicate susceptibility to associated antimicrobial drugs or drug classes. Results should be used in conjunction with other clinical and laboratory findings. Performed By: #### [employer] CULTURE IDENTIFICATION PANEL, BLDCULT ####[facility] (DEFAULT)[address] [address] Proteus species DNA Not detected Normal Not Detected [facility] Comment on above: Order Comment: 2 Bot tles (1 Set - consists of 1 Aerobic bottle and 1 Anaerobic bottle) -1st Peripheral DrawFor vacutainer method draw: Fill aerobic bottle first, then anaerobicResults may be compromised due to HIGH VOLUME of the BACT\\ALERT bottle EXCEEDING 10mLs, which can be associated with increased contamination. The optimal blood volume is 8-10mLs per aerobic/anaerobic blood culture bottle.This test was performed using a multiplex nucleic acid test that detects and identifies multiple bacterial and yeast nucleic acids and select genetic determinants associated with antimicrobial resistance. Culture is necessary to confirm susceptibilities and identify organisms not detected by this test. A Not Detected result for a genetic marker of antimicrobial resistance does not indicate susceptibility to associated antimicrobial drugs or drug classes. Results should be used in conjunction with other clinical and laboratory findings. Performed By: #### B [employer] CULTURE IDENTIFICATION PANEL, BLDCULT ####[facility] (DEFAULT)[address] [place] [phone] Pseudomonas aeruginosa DNA Not detected Normal Not Detected [facility] Comment on above: Order Comment: 2 Bot tles (1 Set - consists of 1 Aerobic bottle and 1 Anaerobic bottle) -1st Peripheral DrawFor vacutainer method draw: Fill aerobic bottle first, then anaerobicResults may be compromised due to HIGH VOLUME of the BACT\\ALERT bottle EXCEEDING 10mLs, which can be associated with increased contamination. The optimal blood volume is 8-10mLs per aerobic/anaerobic blood culture bottle.This test was performed using a multiplex nucleic acid test that detects and identifies multiple bacterial and yeast nucleic acids and select genetic determinants associated with antimicrobial resistance. Culture is necessary to confirm susceptibilities and identify organisms not detected by this test. A Not Detected result for a genetic marker of antimicrobial resistance does not indicate susceptibility to associated antimicrobial drugs or drug classes. Results should be used in conjunction with other clinical and laboratory findings. Performed By: #### B LOOD CULTURE IDENTIFICATION PANEL, BLDCULT ####[facility] (DEFAULT)[address] [place] [id number] Salmonella species DNA Not detected Normal Not Detecte d [facility] Comment on above: Order Comment: 2 Bot tles (1 Set - consists of 1 Aerobic bottle and 1 Anaerobic bottle) -1st Peripheral DrawFor vacutainer method draw: Fill aerobic bottle first, then anaerobicResults may be compromised due to HIGH VOLUME of the BACT\\ALERT bottle EXCEEDING 10mLs, which can be associated with increased contamination. The optimal blood volume is 8-10mLs per aerobic/anaerobic blood culture bottle.This test was performed using a multiplex nucleic acid test that detects and identifies multiple bacterial and yeast nucleic acids and select genetic determinants associated with antimicrobial resistance. Culture is necessary to confirm susceptibilities and identify organisms not detected by this test. A Not Detected result for a genetic marker of antimicrobial resistance does not indicate susceptibility to associated antimicrobial drugs or drug classes. Results should be used in conjunction with other clinical and laboratory findings. Performed By: #### B [employer] CULTURE IDENTIFICATION PANEL, BLDCULT ####[facility] (DEFAULT)[address] [place] [address] Serratia marcescens DNA Not detected Normal Not Detected [facility] Comment on above: Order Comment: 2 Bot tles (1 Set - consists of 1 Aerobic bottle and 1 Anaerobic bottle) -1st Peripheral DrawFor vacutainer method draw: Fill aerobic bottle first, then anaerobicResults may be compromised due to HIGH VOLUME of the BACT\\ALERT bottle EXCEEDING 10mLs, which can be associated with increased contamination. The optimal blood volume is 8-10mLs per aerobic/anaerobic blood culture bottle.This test was performed using a multiplex nucleic acid test that detects and identifies multiple bacterial and yeast nucleic acids and select genetic determinants associated with antimicrobial resistance. Culture is necessary to confirm susceptibilities and identify organisms not detected by this test. A Not Detected result for a genetic marker of antimicrobial resistance does not indicate susceptibility to associated antimicrobial drugs or drug classes. Results should be used in conjunction with other clinical and laboratory findings. Performed By: #### B [employer] CULTURE IDENTIFICATION PANEL, BLDCULT ####[facility] (DEFAULT)[address] [place] [phone] Staphylococcus aureus DNA Detected Abnormal Not Detected [facility] Comment on above: Order Comment: 2 Bot tles (1 Set - consists of 1 Aerobic bottle and 1 Anaerobic bottle) -1st Peripheral DrawFor vacutainer method draw: Fill aerobic bottle first, then anaerobicResults may be compromised due to HIGH VOLUME of the BACT\\ALERT bottle EXCEEDING 10mLs, which can be associated with increased contamination. The optimal blood volume is 8-10mLs per aerobic/anaerobic blood culture bottle.This test was performed using a multiplex nucleic acid test that detects and identifies multiple bacterial and yeast nucleic acids and select genetic determinants associated with antimicrobial resistance. Culture is necessary to confirm susceptibilities and identify organisms not detected by this test. A Not Detected result for a genetic marker of antimicrobial resistance does not indicate susceptibility to associated antimicrobial drugs or drug classes. Results should be used in conjunction with other clinical and laboratory findings. Result Comment: Cont act isolation is NOT required for inpatients with Methicillin Resistant Staphylococcus aureus (MRSA), use standard precautions and follow the isolation policy in regards to any additional need for isolation (eg. open draining wounds). Performed By: #### B [employer] CULTURE IDENTIFICATION PANEL, BLDCULT ####[facility] (DEFAULT)[address] [place] [phone] Staphylococcus epidermidis DNA Not detected Normal Not Detected [facility] Comment on above: Order Comment: 2 Bot tles (1 Set - consists of 1 Aerobic bottle and 1 Anaerobic bottle) -1st Peripheral DrawFor vacutainer method draw: Fill aerobic bottle first, then anaerobicResults may be compromised due to HIGH VOLUME of the BACT\\ALERT bottle EXCEEDING 10mLs, which can be associated with increased contamination. The optimal blood volume is 8-10mLs per aerobic/anaerobic blood culture bottle.This test was performed using a multiplex nucleic acid test that detects and identifies multiple bacterial and yeast nucleic acids and select genetic determinants associated with antimicrobial resistance. Culture is necessary to confirm susceptibilities and identify organisms not detected by this test. A Not Detected result for a genetic marker of antimicrobial resistance does not indicate susceptibility to associated antimicrobial drugs or drug classes. Results should be used in conjunction with other clinical and laboratory findings. Performed By: #### B [employer] CULTURE IDENTIFICATION PANEL, BLDCULT ####[facility] (DEFAULT)[address] [address] Staphylococcus lugdunensis DNA Not detected Normal Not Detected [facility] Comment on above: Order Comment: 2 Bot tles (1 Set - consists of 1 Aerobic bottle and 1 Anaerobic bottle) -1st Peripheral DrawFor vacutainer method draw: Fill aerobic bottle first, then anaerobicResults may be compromised due to HIGH VOLUME of the BACT\\ALERT bottle EXCEEDING 10mLs, which can be associated with increased contamination. The optimal blood volume is 8-10mLs per aerobic/anaerobic blood culture bottle.This test was performed using a multiplex nucleic acid test that detects and identifies multiple bacterial and yeast nucleic acids and select genetic determinants associated with antimicrobial resistance. Culture is necessary to confirm susceptibilities and identify organisms not detected by this test. A Not Detected result for a genetic marker of antimicrobial resistance does not indicate susceptibility to associated antimicrobial drugs or drug classes. Results should be used in conjunction with other clinical and laboratory findings. Performed By: #### B [employer] CULTURE IDENTIFICATION PANEL, BLDCULT ####[facility] (DEFAULT)[address] [place] [id number] Staphylococcus species DNA Detected Abnormal Not Detected [facility] Comment on above: Order Comment: 2 Bot tles (1 Set - consists of 1 Aerobic bottle and 1 Anaerobic bottle) -1st Peripheral DrawFor vacutainer method draw: Fill aerobic bottle first, then anaerobicResults may be compromised due to HIGH VOLUME of the BACT\\ALERT bottle EXCEEDING 10mLs, which can be associated with increased contamination. The optimal blood volume is 8-10mLs per aerobic/anaerobic blood culture bottle.This test was performed using a multiplex nucleic acid test that detects and identifies multiple bacterial and yeast nucleic acids and select genetic determinants associated with antimicrobial resistance. Culture is necessary to confirm susceptibilities and identify organisms not detected by this test. A Not Detected result for a genetic marker of antimicrobial resistance does not indicate susceptibility to associated antimicrobial drugs or drug classes. Results should be used in conjunction with other clinical and laboratory findings. Performed By: #### B [employer] CULTURE IDENTIFICATION PANEL, BLDCULT ####[facility] (DEFAULT)[address] [place] [id number] Stenotrophomonas maltophilia DNA Not detected Normal Not Detected [facility] Comment on above: Order Comment: 2 Bot tles (1 Set - consists of 1 Aerobic bottle and 1 Anaerobic bottle) -1st Peripheral DrawFor vacutainer method draw: Fill aerobic bottle first, then anaerobicResults may be compromised due to HIGH VOLUME of the BACT\\ALERT bottle EXCEEDING 10mLs, which can be associated with increased contamination. The optimal blood volume is 8-10mLs per aerobic/anaerobic blood culture bottle.This test was performed using a multiplex nucleic acid test that detects and identifies multiple bacterial and yeast nucleic acids and select genetic determinants associated with antimicrobial resistance. Culture is necessary to confirm susceptibilities and identify organisms not detected by this test. A Not Detected result for a genetic marker of antimicrobial resistance does not indicate susceptibility to associated antimicrobial drugs or drug classes. Results should be used in conjunction with other clinical and laboratory findings. Performed By: #### B [employer] CULTURE IDENTIFICATION PANEL, BLDCULT ####[facility] (DEFAULT)[address] [place] [address] Streptococcus agalactiae (Group B) DNA Not detected Normal Not Detected [facility] Comment on above: Order Comment: 2 Bot tles (1 Set - consists of 1 Aerobic bottle and 1 Anaerobic bottle) -1st Peripheral DrawFor vacutainer method draw: Fill aerobic bottle first, then anaerobicResults may be compromised due to HIGH VOLUME of the BACT\\ALERT bottle EXCEEDING 10mLs, which can be associated with increased contamination. The optimal blood volume is 8-10mLs per aerobic/anaerobic blood culture bottle.This test was performed using a multiplex nucleic acid test that detects and identifies multiple bacterial and yeast nucleic acids and select genetic determinants associated with antimicrobial resistance. Culture is necessary to confirm susceptibilities and identify organisms not detected by this test. A Not Detected result for a genetic marker of antimicrobial resistance does not indicate susceptibility to associated antimicrobial drugs or drug classes. Results should be used in conjunction with other clinical and laboratory findings. Performed By: #### [employer] CULTURE IDENTIFICATION PANEL, BLDCULT ####[facility] (DEFAULT)[address] [address] Streptococcus pneumoniae DNA Not detected Normal Not Detected [facility] Comment on above: Order Comment: 2 Bot tles (1 Set - consists of 1 Aerobic bottle and 1 Anaerobic bottle) -1st Peripheral DrawFor vacutainer method draw: Fill aerobic bottle first, then anaerobicResults may be compromised due to HIGH VOLUME of the BACT\\ALERT bottle EXCEEDING 10mLs, which can be associated with increased contamination. The optimal blood volume is 8-10mLs per aerobic/anaerobic blood culture bottle.This test was performed using a multiplex nucleic acid test that detects and identifies multiple bacterial and yeast nucleic acids and select genetic determinants associated with antimicrobial resistance. Culture is necessary to confirm susceptibilities and identify organisms not detected by this test. A Not Detected result for a genetic marker of antimicrobial resistance does not indicate susceptibility to associated antimicrobial drugs or drug classes. Results should be used in conjunction with other clinical and laboratory findings. Performed By: #### B [employer] CULTURE IDENTIFICATION PANEL, BLDCULT ####[facility] (DEFAULT)[address] [address] Streptococcus pyogenes (Group A) DNA Not detected Normal Not Detected [facility] Comment on above: Order Comment: 2 Bot tles (1 Set - consists of 1 Aerobic bottle and 1 Anaerobic bottle) -1st Peripheral DrawFor vacutainer method draw: Fill aerobic bottle first, then anaerobicResults may be compromised due to HIGH VOLUME of the BACT\\ALERT bottle EXCEEDING 10mLs, which can be associated with increased contamination. The optimal blood volume is 8-10mLs per aerobic/anaerobic blood culture bottle.This test was performed using a multiplex nucleic acid test that detects and identifies multiple bacterial and yeast nucleic acids and select genetic determinants associated with antimicrobial resistance. Culture is necessary to confirm susceptibilities and identify organisms not detected by this test. A Not Detected result for a genetic marker of antimicrobial resistance does not indicate susceptibility to associated antimicrobial drugs or drug classes. Results should be used in conjunction with other clinical and laboratory findings. Performed By: #### B [employer] CULTURE IDENTIFICATION PANEL, BLDCULT ####[facility] (DEFAULT)[address] [place] [address] Streptococcus species DNA Not detected Normal Not Detected [facility] Comment on above: Order Comment: 2 Bot tles (1 Set - consists of 1 Aerobic bottle and 1 Anaerobic bottle) -1st Peripheral DrawFor vacutainer method draw: Fill aerobic bottle first, then anaerobicResults may be compromised due to HIGH VOLUME of the BACT\\ALERT bottle EXCEEDING 10mLs, which can be associated with increased contamination. The optimal blood volume is 8-10mLs per aerobic/anaerobic blood culture bottle.This test was performed using a multiplex nucleic acid test that detects and identifies multiple bacterial and yeast nucleic acids and select genetic determinants associated with antimicrobial resistance. Culture is necessary to confirm susceptibilities and identify organisms not detected by this test. A Not Detected result for a genetic marker of antimicrobial resistance does not indicate susceptibility to associated antimicrobial drugs or drug classes. Results should be used in conjunction with other clinical and laboratory findings. Performed By: #### B [employer] CULTURE IDENTIFICATION PANEL, BLDCULT ####[facility] (DEFAULT)[address] [place] [address] CBC AND ELECTRONIC DIFFon Abs Baso Auto < Normal 0.00-0.[address] [facility] Comment on above: Performed By: #### L [id number] ####[facility] (DEFAULT)[address] [place] [address] Basophils/100 WBC (Bld) 0.4 % Normal [facility] Comment on above: Performed By: #### L [id number] ####[facility] (DEFAULT)[address] [place] [address] DIFF STATUS Electronic Differential Normal [facility] Comment on above: Performed By: #### L [id number] ####[facility] (DEFAULT)[address] [place] [address] Eosinophils (Bld) [#/Vol] 0.22 10*3/uL Normal 0.00-0.[address] [facility] Comment on above: Performed By: #### L [id number] ####[facility] (DEFAULT)[address] [place] [address] Eosinophils/100 WBC (Bld) 2.7 % Normal [facility] Comment on above: Performed By: #### L [id number] ####[facility] (DEFAULT)[address] [place] [address] Hematocrit (Bld) [Volume fraction] 32.9 % Low 34.9-44.[address] [facility] Comment on above: Performed By: #### L [id number] ####[facility] (DEFAULT)[address] [place] [address] Hemoglobin (Bld) [Mass/Vol] 10.8 g/dL Low 11.4-15.[address] [facility] Comment on above: Performed By: #### L [id number] ####[facility] (DEFAULT)[address] [place] [address], [place] [address] Immature Grans % 0.5 % Normal [facility] Comment on above: Performed By: #### L [id number] ####[facility] (DEFAULT)[address] [place] [address], [place] [address] Immature Grans Absolute 0.04 K/uL Normal <=0.[address] [facility] Comment on above: Performed By: #### L [id number] ####[facility] (DEFAULT)[address] [place] [place] [address] Lymphocytes (Bld) [#/Vol] 1.47 10*3/uL Normal 1.16-3.[address] [facility] Comment on above: Performed By: #### L [id number] ####[facility] (DEFAULT)[address] [place] [address], [place] [address] Lymphocytes/100 WBC (Bld) 17.9 % Normal [facility] Comment on above: Performed By: #### L [id number] ####[facility] (DEFAULT)[address] [place] [place] [address] MCV (RBC) [Entitic vol] 88.4 fL Normal 79.6-97.[address] [facility] Comment on above: Performed By: #### L [id number] ####[facility] (DEFAULT)[address] [place] [address] Mean Cell Hgb 29.0 pg Normal 25.9-33.[address] [facility] Comment on above: Performed By: #### L [id number] ####[facility] (DEFAULT)[address] [place] [address] Mean Cell Hgb Conc 32.8 g/dL Normal 31.4-35.9 [facility] Comment on above: Performed By: #### L [id number] ####[facility] (DEFAULT)[address] [place] [address] Monocytes (Bld) [#/Vol] 0.83 10*3/uL Normal 0.22-0.[address] [facility] Comment on above: Performed By: #### L [id number] ####[facility] (DEFAULT)[address] [place] [address] Monocytes/100 WBC (Bld) 10.1 % Normal [facility] Comment on above: Performed By: #### L [id number] ####[facility] (DEFAULT)[address] [place] [address] Nucleated RBC 0.0 /100 WBC Normal <=0.2 [facility] Comment on above: Performed By: #### L [id number] ####[facility] (DEFAULT)[address] [place] [address] Platelet mean volume (Bld) [Entitic vol] 10.2 fL Normal 8.5-12.[address] [facility] Comment on above: Performed By: #### L [id number] ####[facility] (DEFAULT)[address] [place] [address] Platelets (Bld) [#/Vol] 170 10*3/uL Normal 150-[address] [facility] Comment on above: Performed By: #### L [id number] ####[facility] (DEFAULT)[address] [facility] [place] [address] RBC (Bld) [#/Vol] 3.72 10*6/uL Low 3.91-5.[address] [facility] Comment on above: Performed By: #### L AB980 ####[facility] (DEFAULT)[address] [facility] [place] [address] RBC Distribution 14.4 % Normal 10.8-14.9 [facility] Comment on above: Performed By: #### L AB980 ####[facility] (DEFAULT)[address] [place] [address] Segs + Bands Auto 68.4 % Normal [facility] Comment on above: Performed By: #### L AB980 ####[facility] (DEFAULT)[address] [place] [address] Segs + Bands,Absolute Auto 5.62 K/uL Normal 1.64-7.[address] [facility] Comment on above: Performed By: #### L [id number] ####[facility] (DEFAULT)[address] [place] [address] WBC (Bld) [#/Vol] 8.21 10*3/uL Normal 3.99-11.[address] [facility] Comment on above: Performed By: #### L AB980 ####[facility] (DEFAULT)[address] [place] [place] [address] CHEM 7 (LYTES,BUN,CREA,GLUC) on 12-30-2024 Anion gap [Moles/Vol] 12 mmol/L Normal 7-17 [facility] Comment on above: Performed By: #### M GO, CHM7 ####[facility] (DEFAULT)[address] [place] [address] Chloride [Moles/Vol] 96 mmol/L Low 98-[address] [facility] Comment on above: Performed By: #### CLARISSA PUGA7 ####[facility] (DEFAULT)[address] [place] [address] CO2 [Moles/Vol] 25 mmol/L Normal 21-31 [facility] Comment on above: Performed By: #### CLARISSA PUGA7 ####[facility] (DEFAULT)[address] [place] [address] Creatinine [Mass/Vol] 0.86 mg/dL Normal 0.50-1.20 [facility] Comment on above: Performed By: #### CLARISSA PUGA7 ####[facility] (DEFAULT)[address] [place] [address], [place] [address] GFR/1.73 sq M.predicted among non-blacks MDRD (S/P/Bld) [Vol rate/Area] 78 mL/min/{1.73_m2} Normal >=[address] [facility] Comment on above: Result Comment: Repo rted eGFR is based on the CKD-EPI 2020 equation using creatinine, age, and sex. Performed By: #### CLOTILDE PUGA ####[facility] (DEFAULT)[address] [facility] [place] [address] Glucose [Mass/Vol] 321 mg/dL High Nonfastin -179 mg/dL; Fastin-[address] [facility] Comment on above: Performed By: #### CLARISSA PUGA7 ####[facility] (DEFAULT)[address] [place] [address], [place] [address] Osmolality [Osmolality] 286 mosm/kg Normal 278-[address] [facility] Comment on above: Performed By: #### CLARISSA PUGA7 ####[facility] (DEFAULT)[address] [place] [place] [address] Potassium [Moles/Vol] 4.3 mmol/L Normal 3.5-5.0 [facility] Comment on above: Performed By: #### CLOTILDE PUGA ####[facility] (DEFAULT)[address] [place] [address] Sodium [Moles/Vol] 129 mmol/L Low 135-145 [facility] Comment on above: Result Comment: Resu lts inconsistent with previous results Performed By: #### CLARISSA PUGA7 ####[facility] (DEFAULT)[address] [place] [address] Urea nitrogen [Mass/Vol] 10 mg/dL Normal - [facility] Comment on above: Performed By: #### CLARISSA PUGA7 ####[facility] (DEFAULT)[address] [place] [address] Urea nitrogen/Creatinine [Mass ratio] 12 mg/mg Normal [facility] Comment on above: Performed By: #### CLARISSA PUGA7 ####[facility] (DEFAULT)[address] [place] [address] MAGNESIUMon 12-30-2024 Magnesium [Mass/Vol] 1.8 mg/dL Normal 1.6-2.[address] [facility] Comment on above: Performed By: #### CLARISSA PUGA7 ####[facility] (DEFAULT)[address] [place] [address] BACTERIAL CULTURE AND DIRECT SMEAR, LESION, TISSUE, DEVICEon 12-29-2024 Bacteria identified Cx Nom (Unsp spec) Normal [facility] Comment on above: Order Comment: [facility] e: LV lead Result Comment: Grow [id number] Growth Methicillin Resistant Staphylococcus aureusRefer to specimen [id number] on 12/29/2024 for susceptibilities.Identification was performed on the MALDI-TOF mass spectrometer [employer]. This test was developed by [facility]. It has not been cleared or approved by the FDA. The laboratory is regulated under CLIA as qualified to perform high-complexity testing. This test is used for clinical purposes. It should not be regarded as investigational or for research. Performed By: #### G EN ####[facility] (DEFAULT)[address] [place] [address] Microscopic observation Gram stain Nom (Unsp spec) Normal [facility] Comment on above: Order Comment: Sourc e: LV lead Result Comment: Neut rophils, RareRed Blood Cells PresentNo organisms seen Performed By: #### G EN ####[facility] (DEFAULT)[address] [place] [address] Bacteria identified Cx Nom (Unsp spec) Normal [facility] Comment on above: Result Comment: Grow [id number] Boon Methicillin Resistant Staphylococcus aureusRefer to specimen [id number] on 12/29/24 for susceptibilities. Performed By: #### G EN ####[facility] (DEFAULT)[address] [place] [address] Microscopic observation Gram stain Nom (Unsp spec) Normal [facility] Comment on above: Result Comment: Neut rophils, NoneRed Blood Cells PresentNo organisms seen Performed By: #### G EN ####[facility] (DEFAULT)[address] [place] [address] Bacteria identified Cx Nom (Unsp spec) NO GROWTH DAY 2 OF [address] [facility] Comment on above: Performed By: #### G EN ####[facility] (DEFAULT)[address] [place] [place] [address] Clindamycin [Susceptibility] 0.25 ug/mL Resistant [facility] Comment on above: Order Comment: Sourc e: RA Lead Performed By: #### G EN ####[facility] (DEFAULT)[address] [place] [address] DAPTOmycin [Susceptibility] 0.5 ug/mL Invalid Interpretation Code [facility] Comment on above: Order Comment: Sourc e: RA Lead Performed By: #### G EN ####[facility] (DEFAULT)[address] [place] [place] [address] Microscopic observation Gram stain Nom (Unsp spec) Normal [facility] Comment on above: Result Comment: Neut rophils, RareRed Blood Cells PresentNo organisms seen Performed By: #### G EN ####[facility] (DEFAULT)[address] [place] [address] Oxacillin [Susceptibility] by Minimum inhibitory concentration (ABBEY) >= Resistant [facility] Comment on above: Order Comment: Sourc e: RA Lead Result Comment: Cont act Isolation is NOT required for inpatients with Methicillin Resistant Staphylococcus aureus (MRSA), use standard precautions and follow the isolation policy in regards to any additional need for isolation (eg. open draining wounds). Performed By: #### G EN ####[facility] (DEFAULT)[address] [facility] [place] [address] rifAMPin [Susceptibility] by Minimum inhibitory concentration (ABBEY) <= Invalid Interpretation Code [facility] Comment on above: Order Comment: Sourc e: RA Lead Result Comment: Rifa mpin must never be used as monotherapy for Staphylococcal infection because of the rapid emergence of resistance. Performed By: #### G EN ####[facility] (DEFAULT)[address] [place] [address] Tetracycline [Susceptibility] <= Invalid Interpretation Code [facility] Comment on above: Order Comment: Sourc e: RA Lead Result Comment: Doxy cycline/minocycline S. aureus susceptibility can be inferred from the tetracycline ABBEY when tetracycline susceptible Performed By: #### G EN ####[facility] (DEFAULT)[address] [place] [address] Trimethoprim+Sulfameth oxazole [Susceptibility] <= Invalid Interpretation Code [facility] Comment on above: Order Comment: Sourc e: RA Lead Performed By: #### G EN ####[facility] (DEFAULT)[address] [facility] [place] [address] Vancomycin [Susceptibility] 1 ug/mL Invalid Interpretation Code [facility] Comment on above: Order Comment: Sourc e: RA Lead Performed By: #### G EN ####[facility] (DEFAULT)[address] [facility] [place] [address] CBC AND ELECTRONIC DIFFon Abs Baso Auto < Normal 0.00-0.[address] [facility] Comment on above: Performed By: #### L [id number] ####[facility] (DEFAULT)[address] [place] [address] Basophils/100 WBC (Bld) 0.4 % Normal [facility] Comment on above: Performed By: #### L AB980 ####[facility] (DEFAULT)[address] [place] [address] DIFF STATUS Electronic Differential Normal [facility] Comment on above: Performed By: #### L AB980 ####[facility] (DEFAULT)[address] [place] [address], [place] [address] Eosinophils (Bld) [#/Vol] 0.14 10*3/uL Normal 0.00-0.[address] [facility] Comment on above: Performed By: #### L AB980 ####[facility] (DEFAULT)[address] [place] [address], [place] [address] Eosinophils/100 WBC (Bld) 1.8 % Normal [facility] Comment on above: Performed By: #### L AB980 ####[facility] (DEFAULT)[address] [place] [address], [place] [address] Hematocrit (Bld) [Volume fraction] 39.2 % Normal 34.9-44.[address] [facility] Comment on above: Performed By: #### L AB980 ####[facility] (DEFAULT)[address] [place] [address], [place] [address] Hemoglobin (Bld) [Mass/Vol] 12.7 g/dL Normal 11.4-15.[address] [facility] Comment on above: Performed By: #### L AB980 ####[facility] (DEFAULT)[address] [place] [address], [place] [address] Immature Grans % 0.5 % Normal [facility] Comment on above: Performed By: #### L AB980 ####[facility] (DEFAULT)[address] [place] [address] Immature Grans Absolute 0.04 K/uL Normal <=0.[address] [facility] Comment on above: Performed By: #### L AB980 ####[facility] (DEFAULT)[address] [place] [address] Lymphocytes (Bld) [#/Vol] 1.65 10*3/uL Normal 1.16-3.[address] [facility] Comment on above: Performed By: #### L AB980 ####[facility] (DEFAULT)[address] [place] [address] Lymphocytes/100 WBC (Bld) 21.4 % Normal [facility] Comment on above: Performed By: #### L AB980 ####[facility] (DEFAULT)[address] [place] [address] MCV (RBC) [Entitic vol] 88.3 fL Normal 79.6-97.[address] [facility] Comment on above: Performed By: #### L AB980 ####[facility] (DEFAULT)[address] [facility] [place] [address] Mean Cell Hgb 28.6 pg Normal 25.9-33.[address] [facility] Comment on above: Performed By: #### L AB980 ####[facility] (DEFAULT)[address] [place] [address] Mean Cell Hgb Conc 32.4 g/dL Normal 31.4-35.9 [facility] Comment on above: Performed By: #### L AB980 ####[facility] (DEFAULT)[address] [place] [address] Monocytes (Bld) [#/Vol] 0.71 10*3/uL Normal 0.22-0.[address] [facility] Comment on above: Performed By: #### L [id number] ####[facility] (DEFAULT)[address] [place] [address] Monocytes/100 WBC (Bld) 9.2 % Normal [facility] Comment on above: Performed By: #### L AB980 ####[facility] (DEFAULT)[address] [place] [address] Nucleated RBC 0.0 /100 WBC Normal <=0.2 [facility] Comment on above: Performed By: #### L [id number] ####[facility] (DEFAULT)[address] [place] [address] Platelet mean volume (Bld) [Entitic vol] 10.2 fL Normal 8.5-12.[address] [facility] Comment on above: Performed By: #### L [id number] ####[facility] (DEFAULT)[address] [facility] [place] [address] Platelets (Bld) [#/Vol] 190 10*3/uL Normal 150-[address] [facility] Comment on above: Performed By: #### L AB980 ####[facility] (DEFAULT)[address] [place] [address] RBC (Bld) [#/Vol] 4.44 10*6/uL Normal 3.91-5.[address] [facility] Comment on above: Performed By: #### L AB980 ####[facility] (DEFAULT)[address] [place] [address] RBC Distribution 14.4 % Normal 10.8-14.9 [facility] Comment on above: Performed By: #### L AB980 ####[facility] (DEFAULT)[address] [place] [address] Segs + Bands Auto 66.7 % Normal [facility] Comment on above: Performed By: #### L AB980 ####[facility] (DEFAULT)[address] [facility] [place] [address] Segs + Bands,Absolute Auto 5.14 K/uL Normal 1.64-7.[address] [facility] Comment on above: Performed By: #### L AB980 ####[facility] (DEFAULT)[address] [place] [address] WBC (Bld) [#/Vol] 7.71 10*3/uL Normal 3.99-11.[address] [facility] Comment on above: Performed By: #### L AB980 ####[facility] (DEFAULT)[address] [place] [address] CHEM 7 (LYTES,BUN,CREA,GLUC) on 12-29-2024 Anion gap [Moles/Vol] 18 mmol/L High -17 [facility] Comment on above: Performed By: #### Shanell CHANG CHM7 ####[facility] (DEFAULT)[address] [place] [address] Chloride [Moles/Vol] 101 mmol/L Normal 98-[address] [facility] Comment on above: Performed By: #### Shanell CHANG CHM7 ####[facility] (DEFAULT)[address] [place] [address] CO2 [Moles/Vol] 22 mmol/L Normal 21-31 [facility] Comment on above: Performed By: #### Shanell CHANG CHM7 ####[facility] (DEFAULT)[address] [place] [address] Creatinine [Mass/Vol] 0.86 mg/dL Normal 0.50-1.20 [facility] Comment on above: Performed By: #### Shanell CHANG CHM7 ####[facility] (DEFAULT)[address] [place] [address] GFR/1.73 sq M.predicted among non-blacks MDRD (S/P/Bld) [Vol rate/Area] 78 mL/min/{1.73_m2} Normal >=[address] [facility] Comment on above: Result Comment: Repo rted eGFR is based on the CKD-EPI 2020 equation using creatinine, age, and sex. Performed By: #### CLARISSA PUGA7 ####[facility] (DEFAULT)[address] [place] [address] Glucose [Mass/Vol] 213 mg/dL High Nonfastin -179 mg/dL; Fastin-[address] [facility] Comment on above: Performed By: #### CLOTILDE PUGA ####[facility] (DEFAULT)[address] [place] [address] Osmolality [Osmolality] 293 mosm/kg Normal 278-[address] [facility] Comment on above: Performed By: #### CLOTILDE PUGA ####[facility] (DEFAULT)[address] [place] [address] Potassium [Moles/Vol] 4.1 mmol/L Normal 3.5-5.0 [facility] Comment on above: Performed By: #### CLOTILDE PUGA ####[facility] (DEFAULT)[address] [place] [address] Sodium [Moles/Vol] 137 mmol/L Normal 135-145 [facility] Comment on above: Performed By: #### CLOTILDE PUGA ####[facility] (DEFAULT)[address] [place] [address] Urea nitrogen [Mass/Vol] 9 mg/dL Normal 7-[address] [facility] Comment on above: Performed By: #### CLOTILDE PUGA ####[facility] (DEFAULT)[address] [place] [address] Urea nitrogen/Creatinine [Mass ratio] 10 mg/mg Normal [facility] Comment on above: Performed By: #### CLOTILDE PUGA ####[facility] (DEFAULT)[address] [place] [address] CT SPINE CERVICAL THORACIC W ITH CONTRASTon 12-29-2024 CT SPINE CERVICAL THORACIC WITH CONTRAST Normal [facility] MAGNESIUMon 12-29-2024 Magnesium [Mass/Vol] 2.2 mg/dL Normal 1.6-2.[address] [facility] Comment on above: Performed By: #### M CHARLENE CHM7 ####[facility] (DEFAULT)[address] [place] [address] CBC AND ELECTRONIC DIFFon Basophils (Bld) [#/Vol] 0.07 10*3/uL Normal 0.00-0.[address] [facility] Comment on above: Performed By: #### L AB980 ####[facility] (DEFAULT)[address] [place] [address] Basophils/100 WBC (Bld) 0.8 % Normal [facility] Comment on above: Performed By: #### L AB980 ####[facility] (DEFAULT)[address] [place] [address] DIFF STATUS Electronic Differential Normal [facility] Comment on above: Performed By: #### L AB980 ####[facility] (DEFAULT)[address] [place] [address] Eosinophils (Bld) [#/Vol] 0.22 10*3/uL Normal 0.00-0.[address] [facility] Comment on above: Performed By: #### L AB980 ####[facility] (DEFAULT)[address] [place] [address] Eosinophils/100 WBC (Bld) 2.7 % Normal [facility] Comment on above: Performed By: #### L AB980 ####[facility] (DEFAULT)[address] [place] [place] [address] Hematocrit (Bld) [Volume fraction] 37.1 % Normal 34.9-44.[address] [facility] Comment on above: Performed By: #### L AB980 ####[facility] (DEFAULT)[address] [place] [address] Hemoglobin (Bld) [Mass/Vol] 12.0 g/dL Normal 11.4-15.[address] [facility] Comment on above: Performed By: #### L AB980 ####[facility] (DEFAULT)[address] [place] [address] Immature Grans % 0.7 % Normal [facility] Comment on above: Performed By: #### L AB980 ####[facility] (DEFAULT)[address] [place] [address] Immature Grans Absolute 0.06 K/uL Normal <=0.[address] [facility] Comment on above: Performed By: #### L AB980 ####[facility] (DEFAULT)[address] [place] [address] Lymphocytes (Bld) [#/Vol] 1.93 10*3/uL Normal 1.16-3.[address] [facility] Comment on above: Performed By: #### L AB980 ####[facility] (DEFAULT)[address] [place] [address] Lymphocytes/100 WBC (Bld) 23.4 % Normal [facility] Comment on above: Performed By: #### L AB980 ####[facility] (DEFAULT)[address] [place] [address] MCV (RBC) [Entitic vol] 89.0 fL Normal 79.6-97.[address] [facility] Comment on above: Performed By: #### L AB980 ####[facility] (DEFAULT)[address] [place] [address] Mean Cell Hgb 28.8 pg Normal 25.9-33.[address] [facility] Comment on above: Performed By: #### L AB980 ####[facility] (DEFAULT)[address] [place] [address] Mean Cell Hgb Conc 32.3 g/dL Normal 31.4-35.9 [facility] Comment on above: Performed By: #### L AB980 ####[facility] (DEFAULT)[address] [place] [address] Monocytes (Bld) [#/Vol] 0.64 10*3/uL Normal 0.22-0.[address] [facility] Comment on above: Performed By: #### L AB980 ####[facility] (DEFAULT)[address] [facility] [place] [address] Monocytes/100 WBC (Bld) 7.8 % Normal [facility] Comment on above: Performed By: #### L AB980 ####[facility] (DEFAULT)[address] [place] [address] Nucleated RBC 0.0 /100 WBC Normal <=0.2 [facility] Comment on above: Performed By: #### L AB980 ####[facility] (DEFAULT)[address] [place] [address] Platelet mean volume (Bld) [Entitic vol] 9.9 fL Normal 8.5-12.[address] [facility] Comment on above: Performed By: #### L AB980 ####[facility] (DEFAULT)[address] [place] [address] Platelets (Bld) [#/Vol] 179 10*3/uL Normal 150-[address] [facility] Comment on above: Performed By: #### L AB980 ####[facility] (DEFAULT)[address] [place] [address] RBC (Bld) [#/Vol] 4.17 10*6/uL Normal 3.91-5.[address] [facility] Comment on above: Performed By: #### L AB980 ####[facility] (DEFAULT)[address] [place] [address] RBC Distribution 14.6 % Normal 10.8-14.9 [facility] Comment on above: Performed By: #### L AB980 ####[facility] (DEFAULT)[address] [place] [address] Segs + Bands Auto 64.6 % Normal [facility] Comment on above: Performed By: #### L AB980 ####[facility] (DEFAULT)[address] [place] [address] Segs + Bands,Absolute Auto 5.32 K/uL Normal 1.64-7.[address] [facility] Comment on above: Performed By: #### L AB980 ####[facility] (DEFAULT)[address] [place] [address] WBC (Bld) [#/Vol] 8.24 10*3/uL Normal 3.99-11.[address] [facility] Comment on above: Performed By: #### L AB980 ####[facility] (DEFAULT)[address] [place] [address] CHEM 7 (LYTES,BUN,CREA,GLUC) on 12-28-2024 Anion gap [Moles/Vol] 13 mmol/L Normal 7-17 [facility] Comment on above: Performed By: #### M CHARLENE CHM7 ####[facility] (DEFAULT)[address] [place] [address] Chloride [Moles/Vol] 99 mmol/L Normal 98-[address] [facility] Comment on above: Performed By: #### M CHARLENE, CHM7 ####[facility] (DEFAULT)[address] [place] [address] CO2 [Moles/Vol] 28 mmol/L Normal 21-31 [facility] Comment on above: Performed By: #### M CHARLENE, CHM7 ####[facility] (DEFAULT)[address] [place] [address] Creatinine [Mass/Vol] 0.73 mg/dL Normal 0.50-1.20 [facility] Comment on above: Performed By: #### M GO, CHM7 ####[facility] (DEFAULT)[address] [place] [address] eGFR, CKD-EPI, Female > Normal >=60 [facility] Comment on above: Result Comment: Repo rted eGFR is based on the CKD-EPI 2020 equation using creatinine, age, and sex. Performed By: #### CLARISSA PUGA7 ####[facility] (DEFAULT)[address] [facility] [place] [address] Glucose [Mass/Vol] 223 mg/dL High Nonfastin -179 mg/dL; Fastin-[address] [facility] Comment on above: Performed By: #### CLOTILDE PUGA ####[facility] (DEFAULT)[address] [place] [address] Osmolality [Osmolality] 292 mosm/kg Normal 278-[address] [facility] Comment on above: Performed By: #### CLOTILDE PUGA ####[facility] (DEFAULT)[address] [place] [address] Potassium [Moles/Vol] 4.1 mmol/L Normal 3.5-5.0 [facility] Comment on above: Performed By: #### CLOTILDE PUGA ####[facility] (DEFAULT)[address] [place] [address] Sodium [Moles/Vol] 136 mmol/L Normal 135-145 [facility] Comment on above: Performed By: #### CLARISSA PUGA7 ####[facility] (DEFAULT)[address] [place] [address] Urea nitrogen [Mass/Vol] 10 mg/dL Normal 7-[address] [facility] Comment on above: Performed By: #### CLARISSA PUGA7 ####[facility] (DEFAULT)[address] [place] [address] Urea nitrogen/Creatinine [Mass ratio] 14 mg/mg Normal [facility] Comment on above: Performed By: #### CLARISSA PUGA7 ####[facility] (DEFAULT)[address] [place] [address] CHEST WITHOUT CONTRASTon 12-28-2024 CT CHEST WITHOUT CONTRAST Normal [facility] MAGNESIUMon 12-28-2024 Magnesium [Mass/Vol] 2.0 mg/dL Normal 1.6-2.[address] [facility] Comment on above: Performed By: #### M CHARLENE M7 ####[facility] (DEFAULT)[address] [place] [address] PROTIME-INRon 12-28-2024 INR Coag (PPP) [Relative time] 1.1 {INR} Normal 0.9-1.[address] [facility] Comment on above: Performed By: #### P TI ####[facility] (DEFAULT)[address] [place] [address] PT Coag (PPP) [Time] 13.7 s Normal 11.9-14.[address] [facility] Comment on above: Performed By: #### P TI ####[facility] (DEFAULT)[address] [place] [address] CBC AND ELECTRONIC DIFFon Abs Baso Auto < Normal 0.00-0.[address] [facility] Comment on above: Performed By: #### L AB980 ####[facility] (DEFAULT)[address] [place] [address] Basophils/100 WBC (Bld) 0.5 % Normal [facility] Comment on above: Performed By: #### L AB980 ####[facility] (DEFAULT)[address] [place] [address] DIFF STATUS Electronic Differential Normal [facility] Comment on above: Performed By: #### L AB980 ####[facility] (DEFAULT)[address] [place] [address] Eosinophils (Bld) [#/Vol] 0.18 10*3/uL Normal 0.00-0.[address] [facility] Comment on above: Performed By: #### L AB980 ####[facility] (DEFAULT)[address] [place] [address] Eosinophils/100 WBC (Bld) 2.8 % Normal [facility] Comment on above: Performed By: #### L AB980 ####[facility] (DEFAULT)[address] [place] [address] Hematocrit (Bld) [Volume fraction] 37.0 % Normal 34.9-44.[address] [facility] Comment on above: Performed By: #### L AB980 ####[facility] (DEFAULT)[address] [place] [address] Hemoglobin (Bld) [Mass/Vol] 11.8 g/dL Normal 11.4-15.[address] [facility] Comment on above: Performed By: #### L AB980 ####[facility] (DEFAULT)[address] [place] [address] Immature Grans % 0.6 % Normal [facility] Comment on above: Performed By: #### L AB980 ####[facility] (DEFAULT)[address] [place] [address] Immature Grans Absolute 0.04 K/uL Normal <=0.[address] [facility] Comment on above: Performed By: #### L AB980 ####[facility] (DEFAULT)[address] [place] [address] Lymphocytes (Bld) [#/Vol] 1.67 10*3/uL Normal 1.16-3.[address] [facility] Comment on above: Performed By: #### L AB980 ####[facility] (DEFAULT)[address] [place] [address] Lymphocytes/100 WBC (Bld) 25.8 % Normal [facility] Comment on above: Performed By: #### L AB980 ####[facility] (DEFAULT)[address] [place] [address] MCV (RBC) [Entitic vol] 91.1 fL Normal 79.6-97.[address] [facility] Comment on above: Performed By: #### L AB980 ####[facility] (DEFAULT)[address] [facility] [place] [address] Mean Cell Hgb 29.1 pg Normal 25.9-33.[address] [facility] Comment on above: Performed By: #### L AB980 ####[facility] (DEFAULT)[address] [place] [address] Mean Cell Hgb Conc 31.9 g/dL Normal 31.4-35.9 [facility] Comment on above: Performed By: #### L AB980 ####[facility] (DEFAULT)[address] [place] [address] Monocytes (Bld) [#/Vol] 0.47 10*3/uL Normal 0.22-0.[address] [facility] Comment on above: Performed By: #### L AB980 ####[facility] (DEFAULT)[address] [place] [address] Monocytes/100 WBC (Bld) 7.3 % Normal [facility] Comment on above: Performed By: #### L AB980 ####[facility] (DEFAULT)[address] [place] [address] Nucleated RBC 0.0 /100 WBC Normal <=0.2 [facility] Comment on above: Performed By: #### L AB980 ####[facility] (DEFAULT)[address] [place] [address] Platelet mean volume (Bld) [Entitic vol] 10.1 fL Normal 8.5-12.[address] [facility] Comment on above: Performed By: #### L AB980 ####[facility] (DEFAULT)[address] [place] [address] Platelets (Bld) [#/Vol] 188 10*3/uL Normal 150-[address] [facility] Comment on above: Performed By: #### L AB980 ####[facility] (DEFAULT)[address] [place] [address] RBC (Bld) [#/Vol] 4.06 10*6/uL Normal 3.91-5.[address] [facility] Comment on above: Performed By: #### L AB980 ####[facility] (DEFAULT)[address] [place] [address] RBC Distribution 14.6 % Normal 10.8-14.9 [facility] Comment on above: Performed By: #### L AB980 ####[facility] (DEFAULT)[address] [place] [address] Segs + Bands Auto 63.0 % Normal [facility] Comment on above: Performed By: #### L AB980 ####[facility] (DEFAULT)[address] [place] [address] Segs + Bands,Absolute Auto 4.09 K/uL Normal 1.64-7.[address] [facility] Comment on above: Performed By: #### L AB980 ####[facility] (DEFAULT)[address] [place] [address] WBC (Bld) [#/Vol] 6.48 10*3/uL Normal 3.99-11.[address] [facility] Comment on above: Performed By: #### L AB980 ####[facility] (DEFAULT)[address] [place] [address] CHEM 7 (LYTES,BUN,CREA,GLUC) on 12-27-2024 Anion gap [Moles/Vol] 11 mmol/L Normal 7-17 [facility] Comment on above: Performed By: #### M CHARLENE CHM7 ####[facility] (DEFAULT)[address] [place] [address] Chloride [Moles/Vol] 103 mmol/L Normal 98-[address] [facility] Comment on above: Performed By: #### CLOTILDE PUGA ####[facility] (DEFAULT)[address] [place] [address] CO2 [Moles/Vol] 27 mmol/L Normal 21-31 [facility] Comment on above: Performed By: #### CLARISSA PUGA7 ####[facility] (DEFAULT)[address] [place] [address] Creatinine [Mass/Vol] 0.91 mg/dL Normal 0.50-1.20 [facility] Comment on above: Performed By: #### CLARISSA PUGA7 ####[facility] (DEFAULT)[address] [place] [address], [place] [address] GFR/1.73 sq M.predicted among non-blacks MDRD (S/P/Bld) [Vol rate/Area] 73 mL/min/{1.73_m2} Normal >=[address] [facility] Comment on above: Result Comment: Repo rted eGFR is based on the CKD-EPI 2020 equation using creatinine, age, and sex. Performed By: #### CLOTILDE PUGA ####[facility] (DEFAULT)[address] [place] [address], [place] [address] Glucose [Mass/Vol] 227 mg/dL High Nonfastin -179 mg/dL; Fastin-[address] [facility] Comment on above: Performed By: #### CLOTILDE PUAG ####[facility] (DEFAULT)[address] [place] [address], [place] [address] Osmolality [Osmolality] 294 mosm/kg Normal 278-[address] [facility] Comment on above: Performed By: #### CLARISSA PUGA7 ####[facility] (DEFAULT)[address] [place] [address], [place] [address] Potassium [Moles/Vol] 4.2 mmol/L Normal 3.5-5.0 [facility] Comment on above: Performed By: #### M GO, CHM7 ####[facility] (DEFAULT)[address] [place] [address] Sodium [Moles/Vol] 137 mmol/L Normal 135-145 [facility] Comment on above: Performed By: #### Shanell CHANG CHM7 ####[facility] (DEFAULT)[address] [place] [address] Urea nitrogen [Mass/Vol] 9 mg/dL Normal 7-[address] [facility] Comment on above: Performed By: #### Shanell CHANG CHM7 ####[facility] (DEFAULT)[address] [place] [address] Urea nitrogen/Creatinine [Mass ratio] 10 mg/mg Normal [facility] Comment on above: Performed By: #### Shanell CHANG CHM7 ####[facility] (DEFAULT)[address] [place] [address] Culture, Anaerobic Any Sourc anuel 12-27-2024 CUAN List Antibiotics [place] 48 Hours? vancomycin List Antibiotics to be Started? vancomycin PICC LINE TIP end of picc line had been sent home with No growth in 5 days. Normal [facility] Comment on above: Performed By: #### M 100.3000, M100.2000, M100.4001 ####[facility] [address] [place], [address] Culture, Blood (WB)on 2024 CUB No growth in 5 days. Normal [facility] Comment on above: Performed By: #### M 200.1000 ####[facility] [address] [place], [address] MAGNESIUMon 12-27-2024 Magnesium [Mass/Vol] 2.0 mg/dL Normal 1.6-2.[address] [facility] Comment on above: Performed By: #### Shanell CHANG CHM7 ####[facility] (DEFAULT)[address] [facility] [place] [address] ABORH TYPE RECONFIRMATIONon 12-26-2024 ABO/RH(D) TYPE AB NEG Normal [facility] Comment on above: Performed By: #### T YPEC ####[facility] [facility] (DEFAULT)[address] [place] [address] CBC AND ELECTRONIC DIFFon Basophils (Bld) [#/Vol] 0.04 10*3/uL Normal 0.00-0.[address] [facility] Comment on above: Performed By: #### L [id number] ####[facility] (DEFAULT)[address] [place] [address] Basophils/100 WBC (Bld) 0.5 % Normal [facility] Comment on above: Performed By: #### L AB980 ####[facility] (DEFAULT)[address] [place] [address] DIFF STATUS Electronic Differential Normal [facility] Comment on above: Performed By: #### L AB980 ####[facility] (DEFAULT)[address] [place] [address] Eosinophils (Bld) [#/Vol] 0.16 10*3/uL Normal 0.00-0.[address] [facility] Comment on above: Performed By: #### L AB980 ####[facility] (DEFAULT)[address] [place] [address] Eosinophils/100 WBC (Bld) 2.1 % Normal [facility] Comment on above: Performed By: #### L AB980 ####[facility] (DEFAULT)[address] [place] [address] Hematocrit (Bld) [Volume fraction] 39.2 % Normal 34.9-44.[address] [facility] Comment on above: Performed By: #### L [id number] ####[facility] (DEFAULT)[address] [place] [address] Hemoglobin (Bld) [Mass/Vol] 12.7 g/dL Normal 11.4-15.[address] [facility] Comment on above: Performed By: #### L AB980 ####[facility] (DEFAULT)[address] [place], [place] [address], [place] [address] Immature Grans % 1.2 % Normal [facility] Comment on above: Performed By: #### L AB980 ####[facility] (DEFAULT)[address] [place] [address], [place] [address] Immature Grans Absolute 0.09 K/uL High <=0.[address] [facility] Comment on above: Performed By: #### L [id number] ####[facility] (DEFAULT)[address] [place] [address] Lymphocytes (Bld) [#/Vol] 1.81 10*3/uL Normal 1.16-3.[address] [facility] Comment on above: Performed By: #### L AB980 ####[facility] (DEFAULT)[address] [place] [address] Lymphocytes/100 WBC (Bld) 23.5 % Normal [facility] Comment on above: Performed By: #### L AB980 ####[facility] (DEFAULT)[address] [place] [address] MCV (RBC) [Entitic vol] 89.7 fL Normal 79.6-97.[address] [facility] Comment on above: Performed By: #### L AB980 ####[facility] (DEFAULT)[address] [place] [address] Mean Cell Hgb 29.1 pg Normal 25.9-33.[address] [facility] Comment on above: Performed By: #### L AB980 ####[facility] (DEFAULT)[address] [place] [address] Mean Cell Hgb Conc 32.4 g/dL Normal 31.4-35.9 [facility] Comment on above: Performed By: #### L AB980 ####[facility] (DEFAULT)[address] [facility] [place] [address] Monocytes (Bld) [#/Vol] 0.48 10*3/uL Normal 0.22-0.[address] [facility] Comment on above: Performed By: #### L AB980 ####[facility] (DEFAULT)[address] [place] [address] Monocytes/100 WBC (Bld) 6.2 % Normal [facility] Comment on above: Performed By: #### L [id number] ####[facility] (DEFAULT)[address] [place] [address] Nucleated RBC 0.0 /100 WBC Normal <=0.2 [facility] Comment on above: Performed By: #### L [id number] ####[facility] (DEFAULT)[address] [place] [address] Platelet mean volume (Bld) [Entitic vol] 10.2 fL Normal 8.5-12.[address] [facility] Comment on above: Performed By: #### L [id number] ####[facility] (DEFAULT)[address] [place] [address] Platelets (Bld) [#/Vol] 177 10*3/uL Normal 150-[address] [facility] Comment on above: Performed By: #### L AB980 ####[facility] (DEFAULT)[address] [place] [address] RBC (Bld) [#/Vol] 4.37 10*6/uL Normal 3.91-5.[address] [facility] Comment on above: Performed By: #### L AB980 ####[facility] (DEFAULT)[address] [place] [address] RBC Distribution 14.5 % Normal 10.8-14.9 [facility] Comment on above: Performed By: #### L AB980 ####[facility] (DEFAULT)[address] [place] [address] Segs + Bands Auto 66.5 % Normal [facility] Comment on above: Performed By: #### L AB980 ####[facility] (DEFAULT)[address] [place] [address] Segs + Bands,Absolute Auto 5.11 K/uL Normal 1.64-7.[address] [facility] Comment on above: Performed By: #### L [id number] ####[facility] (DEFAULT)[address] [place] [address] WBC (Bld) [#/Vol] 7.69 10*3/uL Normal 3.99-11.[address] [facility] Comment on above: Performed By: #### L AB980 ####[facility] (DEFAULT)[address] [place] [address] CHEM 7 (LYTES,BUN,CREA,GLUC) on 12-26-2024 Anion gap [Moles/Vol] 12 mmol/L Normal 7-17 [facility] Comment on above: Performed By: #### C HM7, MGO ####[facility] (DEFAULT)[address] [place] [address] Chloride [Moles/Vol] 103 mmol/L Normal 98-[address] [facility] Comment on above: Performed By: #### C HM7, MGO ####[facility] (DEFAULT)[address] [place] [address] CO2 [Moles/Vol] 30 mmol/L Normal 21-31 [facility] Comment on above: Performed By: #### C HM7, MGO ####[facility] (DEFAULT)[address] [place] [address] Creatinine [Mass/Vol] 0.83 mg/dL Normal 0.50-1.20 [facility] Comment on above: Performed By: #### C HM7, MGO ####[facility] (DEFAULT)[address] [place] [address] GFR/1.73 sq M.predicted among non-blacks MDRD (S/P/Bld) [Vol rate/Area] 82 mL/min/{1.73_m2} Normal >=[address] [facility] Comment on above: Result Comment: Repo rted eGFR is based on the CKD-EPI 2020 equation using creatinine, age, and sex. Performed By: #### Tremaine HM7, MGO ####[facility] (DEFAULT)[address] [place] [address] Glucose [Mass/Vol] 130 mg/dL Normal Nonfastin -179 mg/dL; Fastin-[address] [facility] Comment on above: Performed By: #### Tremaine HM7, MGO ####[facility] (DEFAULT)[address] [place] [address] Osmolality [Osmolality] 294 mosm/kg Normal 278-[address] [facility] Comment on above: Performed By: #### Tremaine HM7, MGO ####[facility] (DEFAULT)[address] [place] [address] Potassium [Moles/Vol] 3.8 mmol/L Normal 3.5-5.0 [facility] Comment on above: Performed By: #### Tremaine HM7, MGO ####[facility] (DEFAULT)[address] [place] [address] Sodium [Moles/Vol] 141 mmol/L Normal 135-145 [facility] Comment on above: Performed By: #### Tremaine HM7, MGO ####[facility] (DEFAULT)[address] [place] [address] Urea nitrogen [Mass/Vol] 8 mg/dL Normal 7-[address] [facility] Comment on above: Performed By: #### Tremaine HM7, MGO ####[facility] (DEFAULT)[address] [place] [address] Urea nitrogen/Creatinine [Mass ratio] 10 mg/mg Normal [facility] Comment on above: Performed By: #### C HM7, MGO ####[facility] (DEFAULT)[address] [place] [address] MAGNESIUMon 12-26-2024 Magnesium [Mass/Vol] 2.1 mg/dL Normal 1.6-2.[address] [facility] Comment on above: Performed By: #### C HM7, MGO ####[facility] (DEFAULT)[address] [place] [address] TYPE AND SCREENon 12-26-2024 ABO/RH(D) TYPE AB NEG Normal [facility] Comment on above: Performed By: #### X M ####[facility] (DEFAULT)[address] [place] [address] Specimen Expiration 12/29/2024 23:[address] [facility] Comment on above: Performed By: #### X M ####[facility] (DEFAULT)[address] [place] [address] CBC AND ELECTRONIC DIFFon Basophils (Bld) [#/Vol] 0.05 10*3/uL Normal 0.00-0.[address] [facility] Comment on above: Performed By: #### L [id number] ####[facility] (DEFAULT)[address] [place] [address] Basophils/100 WBC (Bld) 0.8 % Normal [facility] Comment on above: Performed By: #### L AB980 ####[facility] (DEFAULT)[address] [place] [address], [place] [address] DIFF STATUS Electronic Differential Normal [facility] Comment on above: Performed By: #### L [id number] ####[facility] (DEFAULT)[address] [place] [address] Eosinophils (Bld) [#/Vol] 0.19 10*3/uL Normal 0.00-0.[address] [facility] Comment on above: Performed By: #### L AB980 ####[facility] (DEFAULT)[address] [place] [address] Eosinophils/100 WBC (Bld) 3.1 % Normal [facility] Comment on above: Performed By: #### L AB980 ####[facility] (DEFAULT)[address] [place] [address] Hematocrit (Bld) [Volume fraction] 35.0 % Normal 34.9-44.[address] [facility] Comment on above: Result Comment: This is an appended report. These results have been appended to a previously preliminary verified report. Performed By: #### L [id number] ####[facility] (DEFAULT)[address] [place] [address] Hemoglobin (Bld) [Mass/Vol] 11.0 g/dL Low 11.4-15.[address] [facility] Comment on above: Result Comment: This is an appended report. These results have been appended to a previously preliminary verified report. Performed By: #### L AB980 ####[facility] (DEFAULT)[address] [place] [address] Immature Grans % 0.7 % Normal [facility] Comment on above: Performed By: #### L AB980 ####[facility] (DEFAULT)[address] [facility] [place] [address] Immature Grans Absolute 0.04 K/uL Normal <=0.[address] [facility] Comment on above: Performed By: #### L AB980 ####[facility] (DEFAULT)[address] [facility] [place] [address] Lymphocytes (Bld) [#/Vol] 1.67 10*3/uL Normal 1.16-3.[address] [facility] Comment on above: Performed By: #### L AB980 ####[facility] (DEFAULT)[address] [facility] [place] [address] Lymphocytes/100 WBC (Bld) 27.5 % Normal [facility] Comment on above: Performed By: #### L AB980 ####[facility] (DEFAULT)[address] [place] [address] MCV (RBC) [Entitic vol] 90.0 fL Normal 79.6-97.[address] [facility] Comment on above: Result Comment: This is an appended report. These results have been appended to a previously preliminary verified report. Performed By: #### L AB980 ####[facility] (DEFAULT)[address] [place] [address], [place] [address] Mean Cell Hgb 28.3 pg Normal 25.9-33.[address] [facility] Comment on above: Result Comment: This is an appended report. These results have been appended to a previously preliminary verified report. Performed By: #### L AB980 ####[facility] (DEFAULT)[address] [place] [address] Mean Cell Hgb Conc 31.4 g/dL Normal 31.4-35.9 [facility] Comment on above: Result Comment: This is an appended report. These results have been appended to a previously preliminary verified report. Performed By: #### L AB980 ####[facility] (DEFAULT)[address] [place] [address] Mean Platelet Volume Normal [facility] Comment on above: Result Comment: Not measured Performed By: #### L AB980 ####[facility] (DEFAULT)[address] [place] [address] Monocytes (Bld) [#/Vol] 0.45 10*3/uL Normal 0.22-0.[address] [facility] Comment on above: Performed By: #### L AB980 ####[facility] (DEFAULT)[address] [place] [address] Monocytes/100 WBC (Bld) 7.4 % Normal [facility] Comment on above: Performed By: #### L AB980 ####[facility] (DEFAULT)[address] [place] [address] Nucleated RBC 0.0 /100 WBC Normal <=0.2 [facility] Comment on above: Performed By: #### L AB980 ####[facility] (DEFAULT)[address] [place] [address] Platelets (Bld) [#/Vol] 145 10*3/uL Low 150-[address] [facility] Comment on above: Result Comment: This is an appended report. These results have been appended to a previously preliminary verified report. Performed By: #### L [id number] ####[facility] (DEFAULT)[address] [place] [address] RBC (Bld) [#/Vol] 3.89 10*6/uL Low 3.91-5.[address] [facility] Comment on above: Result Comment: This is an appended report. These results have been appended to a previously preliminary verified report. Performed By: #### L AB980 ####[facility] (DEFAULT)[address] [place] [address] RBC Distribution 14.5 % Normal 10.8-14.9 [facility] Comment on above: Result Comment: This is an appended report. These results have been appended to a previously preliminary verified report. Performed By: #### L AB980 ####[facility] (DEFAULT)[address] [place] [address] Segs + Bands Auto 60.5 % Normal [facility] Comment on above: Performed By: #### L AB980 ####[facility] (DEFAULT)[address] [place] [address] Segs + Bands,Absolute Auto 3.68 K/uL Normal 1.64-7.[address] [facility] Comment on above: Performed By: #### L AB980 ####[facility] (DEFAULT)[address] [place] [address] WBC (Bld) [#/Vol] 6.08 10*3/uL Normal 3.99-11.[address] [facility] Comment on above: Result Comment: This is an appended report. These results have been appended to a previously preliminary verified report. Performed By: #### L AB980 ####[facility] (DEFAULT)[address] [place] [address] CHEM 7 (LYTES,BUN,CREA,GLUC) on 12-25-2024 Anion gap [Moles/Vol] 14 mmol/L Normal 7-17 [facility] Comment on above: Performed By: #### M CHARLENE CHM7, CKB ####[facility] (DEFAULT)[address] [place] [address] Chloride [Moles/Vol] 105 mmol/L Normal 98-[address] [facility] Comment on above: Performed By: #### Shanell CHANG CHM7, CKB ####[facility] (DEFAULT)[address] [place] [address] CO2 [Moles/Vol] 26 mmol/L Normal 21-31 [facility] Comment on above: Performed By: #### M CLOTILDE CHANG, CKB ####[facility] (DEFAULT)[address] [place] [address] Creatinine [Mass/Vol] 0.72 mg/dL Normal 0.50-1.20 [facility] Comment on above: Performed By: #### Shanell CHANG CHM7, CKB ####[facility] (DEFAULT)[address] [place] [address] eGFR, CKD-EPI, Female > Normal >=60 [facility] Comment on above: Result Comment: Repo rted eGFR is based on the CKD-EPI 2020 equation using creatinine, age, and sex. Performed By: #### M CHARLENE CHM7, CKB ####[facility] (DEFAULT)[address] [place] [address] Glucose [Mass/Vol] 132 mg/dL Normal Nonfastin -179 mg/dL; Fastin-[address] [facility] Comment on above: Performed By: #### M CHARLENE CHM7, CKB ####[facility] (DEFAULT)[address] [place] [address] Osmolality [Osmolality] 295 mosm/kg Normal 278-[address] [facility] Comment on above: Performed By: #### M GO, CHM7, CKB ####[facility] (DEFAULT)[address] [place] [address] Potassium [Moles/Vol] 4.1 mmol/L Normal 3.5-5.0 [facility] Comment on above: Performed By: #### M CHARLENE, CHM7, CKB ####[facility] (DEFAULT)[address] [place] [address] Sodium [Moles/Vol] 141 mmol/L Normal 135-145 [facility] Comment on above: Performed By: #### M GO, CHM7, CKB ####[facility] (DEFAULT)[address] [place] [address] Urea nitrogen [Mass/Vol] 7 mg/dL Normal 7-[address] [facility] Comment on above: Performed By: #### M GO, CHM7, CKB ####[facility] (DEFAULT)[address] [place] [address] Urea nitrogen/Creatinine [Mass ratio] 10 mg/mg Normal [facility] Comment on above: Performed By: #### M GO, CHM7, CKB ####[facility] (DEFAULT)[address] [place] [address] CKon 12-25-2024 CK [Catalytic activity/Vol] 41 U/L Normal 30-[address] [facility] Comment on above: Performed By: #### M GO, CHM7, CKB ####[facility] (DEFAULT)[address] [place] [address] Culture, Blood (WB)on 2024 CUB No growth in 5 days. Normal [facility] Comment on above: Performed By: #### M 200.1000 ####[facility] [id number] [place], [address] ECHOCARDIOGRAM TRANSESOPHAGE AL (KANDY)on 12-25-2024 ECHOCARDIOGRAM TRANSESOPHAGEAL (KANDY) Normal [facility] MAGNESIUMon 12-25-2024 Magnesium [Mass/Vol] 1.9 mg/dL Normal 1.6-2.[address] [facility] Comment on above: Performed By: #### M GO, CHM7, CKB ####[facility] (DEFAULT)[address] [place] [address] BLOOD CULTUREon 12-24-2024 Bacteria identified Cx Nom (Unsp spec) NO GROWTH DAY 5 OF [address] [facility] Comment on above: Order Comment: 2 Bot tles (1 Set - consists of 1 Aerobic bottle and 1 Anaerobic bottle) -1st Peripheral DrawFor vacutainer method draw: Fill aerobic bottle first, then anaerobicResults may be compromised due to LOW VOLUME of the BACT\\ALERT bottle UNDER 8mLs, which can be associated with decreased sensitivity. The optimal blood volume is 8-10mLs per aerobic/anaerobic blood culture bottle. Performed By: #### B LDCULT ####[facility] (DEFAULT)[address] [place] [address] CBC AND ELECTRONIC DIFFon Abs Baso Auto < Normal 0.00-0.[address] [facility] Comment on above: Performed By: #### L [id number] ####[facility] (DEFAULT)[address] [place] [address] Basophils/100 WBC (Bld) 0.5 % Normal [facility] Comment on above: Performed By: #### L AB980 ####[facility] (DEFAULT)[address] [place] [address] DIFF STATUS Electronic Differential Normal [facility] Comment on above: Performed By: #### L AB980 ####[facility] (DEFAULT)[address] [place] [address] Eosinophils (Bld) [#/Vol] 0.15 10*3/uL Normal 0.00-0.[address] [facility] Comment on above: Performed By: #### L AB980 ####[facility] (DEFAULT)[address] [place] [address] Eosinophils/100 WBC (Bld) 2.6 % Normal [facility] Comment on above: Performed By: #### L AB980 ####[facility] (DEFAULT)[address] [place] [address], [place] [address] Hematocrit (Bld) [Volume fraction] 35.9 % Normal 34.9-44.[address] [facility] Comment on above: Performed By: #### L AB980 ####[facility] (DEFAULT)[address] [place] [address], [place] [address] Hemoglobin (Bld) [Mass/Vol] 11.9 g/dL Normal 11.4-15.[address] [facility] Comment on above: Performed By: #### L AB980 ####[facility] (DEFAULT)[address] [place] [address], [place] [address] Immature Grans % 0.5 % Normal [facility] Comment on above: Performed By: #### L AB980 ####[facility] (DEFAULT)[address] [place] [address], [place] [address] Immature Grans Absolute < Normal <=0.[address] [facility] Comment on above: Performed By: #### L AB980 ####[facility] (DEFAULT)[address] [place] [address] Lymphocytes (Bld) [#/Vol] 1.61 10*3/uL Normal 1.16-3.[address] [facility] Comment on above: Performed By: #### L AB980 ####[facility] (DEFAULT)[address] [place] [address] Lymphocytes/100 WBC (Bld) 28.2 % Normal [facility] Comment on above: Performed By: #### L AB980 ####[facility] (DEFAULT)[address] [place] [address] MCV (RBC) [Entitic vol] 89.8 fL Normal 79.6-97.[address] [facility] Comment on above: Performed By: #### L AB980 ####[facility] (DEFAULT)[address] [place] [address] Mean Cell Hgb 29.8 pg Normal 25.9-33.[address] [facility] Comment on above: Performed By: #### L AB980 ####[facility] (DEFAULT)[address] [place] [address] Mean Cell Hgb Conc 33.1 g/dL Normal 31.4-35.9 [facility] Comment on above: Performed By: #### L AB980 ####[facility] (DEFAULT)[address] [place] [address] Monocytes (Bld) [#/Vol] 0.49 10*3/uL Normal 0.22-0.[address] [facility] Comment on above: Performed By: #### L AB980 ####[facility] (DEFAULT)[address] [place] [address] Monocytes/100 WBC (Bld) 8.6 % Normal [facility] Comment on above: Performed By: #### L AB980 ####[facility] (DEFAULT)[address] [place] [address] Nucleated RBC 0.0 /100 WBC Normal <=0.2 [facility] Comment on above: Performed By: #### L AB980 ####[facility] (DEFAULT)[address] [facility] [place] [address] Platelet mean volume (Bld) [Entitic vol] 10.2 fL Normal 8.5-12.[address] [facility] Comment on above: Performed By: #### L AB980 ####[facility] (DEFAULT)[address] [place] [address] Platelets (Bld) [#/Vol] 136 10*3/uL Low 150-[address] [facility] Comment on above: Performed By: #### L AB980 ####[facility] (DEFAULT)[address] [place] [address] RBC (Bld) [#/Vol] 4.00 10*6/uL Normal 3.91-5.[address] [facility] Comment on above: Performed By: #### L AB980 ####[facility] (DEFAULT)[address] [place] [address] RBC Distribution 14.4 % Normal 10.8-14.9 [facility] Comment on above: Performed By: #### L AB980 ####[facility] (DEFAULT)[address] [place] [address] Segs + Bands Auto 59.6 % Normal [facility] Comment on above: Performed By: #### L AB980 ####[facility] (DEFAULT)[address] [place] [address] Segs + Bands,Absolute Auto 3.39 K/uL Normal 1.64-7.[address] [facility] Comment on above: Performed By: #### L AB980 ####[facility] (DEFAULT)[address] [place] [address] WBC (Bld) [#/Vol] 5.70 10*3/uL Normal 3.99-11.[address] [facility] Comment on above: Performed By: #### L AB980 ####[facility] (DEFAULT)[address] [place] [address] CHEM 7 (LYTES,BUN,CREA,GLUC) on 12-24-2024 Anion gap [Moles/Vol] 11 mmol/L Normal 7-17 [facility] Comment on above: Performed By: #### CLARISSA PUGA7 ####[facility] (DEFAULT)[address] [place] [address] Chloride [Moles/Vol] 106 mmol/L Normal 98-[address] [facility] Comment on above: Performed By: #### CLARISSA PUGA7 ####[facility] (DEFAULT)[address] [place] [address] CO2 [Moles/Vol] 27 mmol/L Normal 21-31 [facility] Comment on above: Performed By: #### CLARISSA PUGA7 ####[facility] (DEFAULT)[address] [place] [address] Creatinine [Mass/Vol] 0.76 mg/dL Normal 0.50-1.20 [facility] Comment on above: Performed By: #### CLOTILDE PUGA ####[facility] (DEFAULT)[address] [place] [address] eGFR, CKD-EPI, Female > Normal >=60 [facility] Comment on above: Result Comment: Repo rted eGFR is based on the CKD-EPI 2020 equation using creatinine, age, and sex. Performed By: #### CLARISSA PUGA7 ####[facility] (DEFAULT)[address] [place] [address] Glucose [Mass/Vol] 222 mg/dL High Nonfastin -179 mg/dL; Fastin-[address] [facility] Comment on above: Performed By: #### CLOTILDE PUGA ####[facility] (DEFAULT)[address] [place] [address] Osmolality [Osmolality] 298 mosm/kg Normal 278-[address] [facility] Comment on above: Performed By: #### CLARISSA PUGA7 ####[facility] (DEFAULT)[address] [place] [address] Potassium [Moles/Vol] 3.7 mmol/L Normal 3.5-5.[address] [facility] Comment on above: Performed By: #### CLARISSA PUGA7 ####[facility] (DEFAULT)[address] [place] [address] Sodium [Moles/Vol] 140 mmol/L Normal 135-145 [facility] Comment on above: Performed By: #### CLARISSA PUGA7 ####[facility] (DEFAULT)[address] [facility] [place] [address] Urea nitrogen [Mass/Vol] 7 mg/dL Normal 7-[address] [facility] Comment on above: Performed By: #### CLARISSA PUGA7 ####[facility] (DEFAULT)[address] [place] [address] Urea nitrogen/Creatinine [Mass ratio] 9 mg/mg Normal [facility] Comment on above: Performed By: #### CLARISSA PUGA7 ####[facility] (DEFAULT)[address] [place] [address] Culture, Blood (WB)on 2024 CUB Normal [facility] Comment on above: Performed By: #### Shanell 200.1000, M100.636 ####[facility] [address] [place], [place], [address] MAGNESIUMon 12-24-2024 Magnesium [Mass/Vol] 1.8 mg/dL Normal 1.6-2.[address] [facility] Comment on above: Performed By: #### Shanell CHANG CHM7 ####[facility] (DEFAULT)[address] [place] [address] XR CHEST 1 VIEW PORTABLEon 0 12-24-2024 XR CHEST 1 VIEW PORTABLE Normal [facility] BC GPC IDon 12-23-2024 BC GPC ID Normal [facility] Comment on above: Performed By: #### Shanell 200.1000, M100.636 ####[facility] [address] [place], [address] BLOOD CULTUREon 12-23-2024 Bacteria identified Cx Nom (Unsp spec) NO GROWTH DAY 5 OF [address] [facility] Comment on above: Order Comment: 2 Bot tles (1 Set - consists of 1 Aerobic bottle and 1 Anaerobic bottle) -1st Peripheral DrawFor vacutainer method draw: Fill aerobic bottle first, then anaerobicResults may be compromised due to HIGH VOLUME of the BACT\\ALERT bottle EXCEEDING 10mLs, which can be associated with increased contamination. The optimal blood volume is 8-10mLs per aerobic/anaerobic blood culture bottle. Performed By: #### B LDCULT ####[facility] (DEFAULT)[address] [place] [address] Bedside Glucoseon 12-23-2024 FINGERSTICK GLU 220 mg/dL High 74-106 [facility] Comment on above: Result Comment: ELLIOTT GEMENT OF PATIENT CARE PER NURSING PROTOCOL Performed By: #### L 501.080 ####[facility] [address] [place], [address] FINGERSTICK GLU 181 mg/dL High 74-106 [facility] Comment on above: Result Comment: ELLIOTT GEMENT OF PATIENT CARE PER NURSING PROTOCOL Performed By: #### L 501.080 ####[facility] [address] [place], [address] FINGERSTICK GLU 105 mg/dL Normal 74-106 [facility] Comment on above: Result Comment: ELLIOTT GEMENT OF PATIENT CARE PER NURSING PROTOCOL Performed By: #### L 501.080 ####[facility] [address] [place], [address] Blood cultureOrdered By: Justino Haq on 12-23-2024 Bacteria identified Cx Nom (Bld) No growth in 5 days. [facility] CALCIUMon 12-23-2024 Calcium [Mass/Vol] 8.7 mg/dL Normal 8.6-10.5 [facility] Comment on above: Performed By: #### C A, IRBC, CHM7, HFP ####[facility] (DEFAULT)[address] [place] [address] CBC AND ELECTRONIC DIFFon Abs Baso Auto < Normal 0.00-0.[address] [facility] Comment on above: Performed By: #### L AB980 ####[facility] (DEFAULT)[address] [place] [address] Basophils/100 WBC (Bld) 0.6 % Normal [facility] Comment on above: Performed By: #### L AB980 ####[facility] (DEFAULT)[address] [place] [address] DIFF STATUS Electronic Differential Normal [facility] Comment on above: Performed By: #### L AB980 ####[facility] (DEFAULT)[address] [place] [address] Eosinophils (Bld) [#/Vol] 0.14 10*3/uL Normal 0.00-0.[address] [facility] Comment on above: Performed By: #### L AB980 ####[facility] (DEFAULT)[address] [place] [address] Eosinophils/100 WBC (Bld) 2.7 % Normal [facility] Comment on above: Performed By: #### L AB980 ####[facility] (DEFAULT)[address] [place] [address] Hematocrit (Bld) [Volume fraction] 33.5 % Low 34.9-44.[address] [facility] Comment on above: Performed By: #### L AB980 ####[facility] (DEFAULT)[address] [place] [address] Hemoglobin (Bld) [Mass/Vol] 10.6 g/dL Low 11.4-15.[address] [facility] Comment on above: Performed By: #### L AB980 ####[facility] (DEFAULT)[address] [place] [address] Immature Grans % 0.4 % Normal [facility] Comment on above: Performed By: #### L AB980 ####[facility] (DEFAULT)[address] [place] [address] Immature Grans Absolute < Normal <=0.[address] [facility] Comment on above: Performed By: #### L AB980 ####[facility] (DEFAULT)[address] [place] [address] Lymphocytes (Bld) [#/Vol] 1.81 10*3/uL Normal 1.16-3.[address] [facility] Comment on above: Performed By: #### L AB980 ####[facility] (DEFAULT)[address] [place] [address] Lymphocytes/100 WBC (Bld) 34.3 % Normal [facility] Comment on above: Performed By: #### L AB980 ####[facility] (DEFAULT)[address] [place] [address] MCV (RBC) [Entitic vol] 89.6 fL Normal 79.6-97.[address] [facility] Comment on above: Performed By: #### L AB980 ####[facility] (DEFAULT)[address] [place] [address] Mean Cell Hgb 28.3 pg Normal 25.9-33.[address] [facility] Comment on above: Performed By: #### L AB980 ####[facility] (DEFAULT)[address] [place] [address] Mean Cell Hgb Conc 31.6 g/dL Normal 31.4-35.9 [facility] Comment on above: Performed By: #### L AB980 ####[facility] (DEFAULT)[address] [place] [address] Monocytes (Bld) [#/Vol] 0.43 10*3/uL Normal 0.22-0.[address] [facility] Comment on above: Performed By: #### L AB980 ####[facility] (DEFAULT)[address] [place] [address] Monocytes/100 WBC (Bld) 8.2 % Normal [facility] Comment on above: Performed By: #### L AB980 ####[facility] (DEFAULT)[address] [facility] [place] [address] Nucleated RBC 0.0 /100 WBC Normal <=0.2 [facility] Comment on above: Performed By: #### L AB980 ####[facility] (DEFAULT)[address] [place] [address] Platelet mean volume (Bld) [Entitic vol] 10.3 fL Normal 8.5-12.[address] [facility] Comment on above: Performed By: #### L AB980 ####[facility] (DEFAULT)[address] [facility] [place] [address] Platelets (Bld) [#/Vol] 129 10*3/uL Low 150-[address] [facility] Comment on above: Performed By: #### L AB980 ####[facility] (DEFAULT)[address] [place] [address] RBC (Bld) [#/Vol] 3.74 10*6/uL Low 3.91-5.[address] [facility] Comment on above: Performed By: #### L AB980 ####[facility] (DEFAULT)[address] [place] [address] RBC Distribution 14.4 % Normal 10.8-14.9 [facility] Comment on above: Performed By: #### L AB980 ####[facility] (DEFAULT)[address] [place] [address] Segs + Bands Auto 53.8 % Normal [facility] Comment on above: Performed By: #### L AB980 ####[facility] (DEFAULT)[address] [place] [address] Segs + Bands,Absolute Auto 2.84 K/uL Normal 1.64-7.[address] [facility] Comment on above: Performed By: #### L AB980 ####[facility] (DEFAULT)[address] [place] [address] WBC (Bld) [#/Vol] 5.27 10*3/uL Normal 3.99-11.[address] [facility] Comment on above: Performed By: #### L AB980 ####[facility] (DEFAULT)[address] [place] [address] CHEM 7 (LYTES,BUN,CREA,GLUC) on 12-23-2024 Anion gap [Moles/Vol] 11 mmol/L Normal 7-17 [facility] Comment on above: Performed By: #### WENDY South, CHM7, HFP ####[facility] (DEFAULT)[address] [place] [address] Chloride [Moles/Vol] 105 mmol/L Normal 98-[address] [facility] Comment on above: Performed By: #### WENDY South, CHM7, HFP ####[facility] (DEFAULT)[address] [place] [address] CO2 [Moles/Vol] 26 mmol/L Normal 21-31 [facility] Comment on above: Performed By: #### WENDY South, CHM7, HFP ####[facility] (DEFAULT)[address] [place] [address] Creatinine [Mass/Vol] 0.71 mg/dL Normal 0.50-1.20 [facility] Comment on above: Performed By: #### WENDY South, CHM7, HFP ####[facility] (DEFAULT)[address] [place] [address] eGFR, CKD-EPI, Female > Normal >=60 [facility] Comment on above: Result Comment: Repo rted eGFR is based on the CKD-EPI 2020 equation using creatinine, age, and sex. Performed By: #### WENDY South CHM7, HFP ####[facility] (DEFAULT)[address] [place] [address] Glucose [Mass/Vol] 216 mg/dL High Nonfastin -179 mg/dL; Fastin-[address] [facility] Comment on above: Performed By: #### WENDY South CHM7, HFP ####[facility] (DEFAULT)[address] [place] [address] Osmolality [Osmolality] 295 mosm/kg Normal 278-[address] [facility] Comment on above: Performed By: #### WENDY South CHM7, HFP ####[facility] (DEFAULT)[address] [place] [address] Potassium [Moles/Vol] 3.9 mmol/L Normal 3.5-5.0 [facility] Comment on above: Performed By: #### WENDY South CHM7, HFP ####[facility] (DEFAULT)[address] [place] [address] Sodium [Moles/Vol] 138 mmol/L Normal 135-145 [facility] Comment on above: Performed By: #### WENDY South CHM7, HFP ####[facility] (DEFAULT)[address] [place] [address] Urea nitrogen [Mass/Vol] 8 mg/dL Normal 7-[address] [facility] Comment on above: Performed By: #### WENDY South CHM7, HFP ####[facility] (DEFAULT)[address] [place] [address] Urea nitrogen/Creatinine [Mass ratio] 11 mg/mg Normal [facility] Comment on above: Performed By: #### WENDY South CHM7, HFP ####[facility] (DEFAULT)[address] [place] [address] Culture, Blood (WB)on 2024 CUB Normal [facility] Comment on above: Performed By: #### M 100.636, L500.4050, M200.1000, L503.6005, L300.4310, L300.3900, L100.0100 ####[facility] [address] [place], [address] FERRITINon 12-23-2024 Ferritin [Mass/Vol] 63.6 ng/mL Normal 7.3-270.[address] [facility] Comment on above: Performed By: #### F LOIS, TSHQR ####[facility] (DEFAULT)[address] [place] [address] Gl[facility] measurement at [facility] deOrdered By: Josie Rivera on 12-23-2024 Glucose [Mass/Vol] 220 mg/dL High 74-106 [facility] HEMOGLOBIN A1Con 12-23-2024 Glucose [Mass/Vol] 263 mg/dL Normal [facility] Comment on above: Performed By: #### A 1CB ####[facility] (DEFAULT)[address] [place] [address] Hemoglobin A1C HPLC 10.8 % High 4.7-5.[address] [facility] Comment on above: Performed By: #### A 1CB ####[facility] (DEFAULT)[address] [place] [address] HEPATIC FUNCTION PANELon Albumin [Mass/Vol] 3.4 g/dL Low 3.5-5.0 [facility] Comment on above: Performed By: #### C A, IRBC, CHM7, HFP ####[facility] (DEFAULT)[address] [place] [address] ALP [Catalytic activity/Vol] 108 U/L Normal 32-[address] [facility] Comment on above: Performed By: #### C A, IRBC, CHM7, HFP ####[facility] (DEFAULT)[address] [place] [address] ALT [Catalytic activity/Vol] 14 U/L Normal 9-[address] [facility] Comment on above: Performed By: #### IVON SouthC, CHM7, HFP ####[facility] (DEFAULT)[address] [place] [address] AST [Catalytic activity/Vol] 14 U/L Normal 10-[address] [facility] Comment on above: Performed By: #### IVON South, CHM7, HFP ####[facility] (DEFAULT)[address] [place] [address] Bilirubin [Mass/Vol] 0.3 mg/dL Normal <1.[address] [facility] Comment on above: Performed By: #### IVON South, CHM7, HFP ####[facility] (DEFAULT)[address] [place] [address] Bilirubin Direct < Normal <0.3 [facility] Comment on above: Performed By: #### IVON South, CHM7, HFP ####[facility] (DEFAULT)[address] [place] [address] Protein [Mass/Vol] 6.4 g/dL Normal 6.4-8.3 [facility] Comment on above: Performed By: #### WENDY oSuth, CHM7, HFP ####[facility] (DEFAULT)[address] [place] [address] IRON/IRON BINDING/TRANSFERRI Non 12-23-2024 Iron [Mass/Vol] 65 ug/dL Normal 40-174 [facility] Comment on above: Performed By: #### WENDY South, CHM7, HFP ####[facility] (DEFAULT)[address] [place] [address] Iron Saturation 19 % Low 20-55 [facility] Comment on above: Performed By: #### Tremaine Maxwell, IRBC, CHM7, HFP ####[facility] (DEFAULT)[address] [place] [address] Total Iron Binding Capacity 335 mcg/dL Normal 250-[address] [facility] Comment on above: Performed By: #### Tremaine Maxwell, IRBC, CHM7, HFP ####[facility] (DEFAULT)[address] [place] [address], [place] [address] Transferrin [Mass/Vol] 268 mg/dL Normal 200-400 [facility] Comment on above: Performed By: #### Tremaine Maxwell, IRBC, CHM7, HFP ####[facility] (DEFAULT)[address] [place] [address], [place] [address] LIPID PANEL W CALCULATED LDL on 12-23-2024 Calculated LDL Cholesterol 70 mg/dL Normal 0-[address] [facility] Comment on above: Order Comment: IF NO T DONE IN THE E.D. SHOULD BE FASTING PRIOR TO DRAW. Result Comment: [<10 0 mg/dL: Optimal][100-129 mg/dL: Near Optimal][130-159 mg/dL: Borderline High][160-189 mg/dL: High][>189 mg/dL: Very High] Performed By: #### I PB, MGO, HDLT ####[facility] (DEFAULT)[address] [place] [address] Cholesterol [Mass/Vol] 124 mg/dL Normal <200 [facility] Comment on above: Order Comment: IF NO T DONE IN THE E.D. SHOULD BE FASTING PRIOR TO DRAW. Result Comment: [<20 0 mg/dL: Desirable][200-239 mg/dL: Borderline High][>239 mg/dL: High] Performed By: #### I PB, MGO, HDLT ####[facility] (DEFAULT)[address] [place] [address], [place] [address] Cholesterol in HDL [Mass/Vol] 26 mg/dL Low >=[address] [facility] Comment on above: Order Comment: IF NO T DONE IN THE E.D. SHOULD BE FASTING PRIOR TO DRAW. Result Comment: [<40 mg/dL: Low (High Risk)][>59 mg/dL: High (Low Risk)] Performed By: #### I PB, MGO, HDLT ####[facility] (DEFAULT)[address] [place] [address] Non HDL Cholesterol 98 mg/dL Normal <[address] [facility] Comment on above: Order Comment: IF NO T DONE IN THE E.D. SHOULD BE FASTING PRIOR TO DRAW. Performed By: #### I PB, MGO, HDLT ####[facility] (DEFAULT)[address] [place] [address] Total Cholesterol/HDL Ratio 4.8 High <4.[address] [facility] Comment on above: Order Comment: IF NO T DONE IN THE E.D. SHOULD BE FASTING PRIOR TO DRAW. Performed By: #### I PB, MGO, HDLT ####[facility] (DEFAULT)[address] [place] [address] Triglyceride [Mass/Vol] 138 mg/dL Normal <[address] [facility] Comment on above: Order Comment: IF NO T DONE IN THE E.D. SHOULD BE FASTING PRIOR TO DRAW. Result Comment: [<15 0 mg/dL: Desirable][150-199 mg/dL: Borderline][200-499 mg/dL: High][>500 mg/dL: Very High] Performed By: #### I PB, MGO, HDLT ####[facility] (DEFAULT)[address] [place] [address] MAGNESIUMon 12-23-2024 Magnesium [Mass/Vol] 1.9 mg/dL Normal 1.6-2.[address] [facility] Comment on above: Performed By: #### I PB, MGO, HDLT ####[facility] (DEFAULT)[address] [place] [address] NT-PRO B-TYPE NATRIURETIC PE PTIDEon 12-23-2024 Natriuretic peptide B (Bld) [Mass/Vol] 395 pg/mL High <=[address] [facility] Comment on above: Order Comment: If no t done in the ED. Performed By: #### Y NTBNP ####[facility] (DEFAULT)[address] [place] [address] PHOSPHATE, INORGANICon 12-23 Phosphorous 3.1 mg/dL Normal 2.2-4.[address] [facility] Comment on above: Performed By: #### I PB, MGO, HDLT ####[facility] (DEFAULT)[address] [place] [address] TSH W/FT4 REFLEXon TSH 1.397 uIU/mL Normal 0.550-4.[address] [facility] Comment on above: Performed By: #### F ERIB, TSHQR ####[facility] (DEFAULT)[address] [place] [address] Urine Cultureon 12-23-2024 URC Below infection leve l. Mixed Gram Positive Organisms Boon Count 1000-10,000 MIXC Mixed contaminants. Submit a new specimen if indicated. Normal [facility] Comment on above: Performed By: #### M 100.2200 ####[facility] [address] [place], [place], [address] Wound Cultureon 12-23-2024 WC List Antibiotics Las t 48 Hours? vancomycin List Antibiotics to be Started? vancomycin PICC LINE TIP end of picc line had been sent home with No growth aerobically. Normal [facility] Comment on above: Performed By: #### M 100.3000, M100.2000, M100.4001 ####[facility] [address] [place], [address] 12 Lead EKGon 12-22-2024 12 Lead EKG Normal [facility] Absolute lymphocyte countOrd ered By: Edith Wolff on 12-22-2024 Lymphocytes Auto (Unsp spec) [#/Vol] 1.36 10*3/uL 0.83-4.51 [facility] Anion gap in Serum or Plasma Ordered By: Edith Wolff on 12-22-2024 Anion gap [Moles/Vol] 7 mmol/L 5-15 [facility] Automated lymphocyte count a s percentage of total leukocytesOrdered By: Edith Wolff on 12-22-2024 Lymphocytes/100 WBC Auto (Unsp spec) 19.1 % 19- [facility] BUN/creatinine ratioOrdered By: Edith Wolff on 12-22-2024 Urea nitrogen/Creatinine [Mass ratio] 13.0 mg/mg - [facility] Basic Metabolic Profile (BMP )on 12-22-2024 BUN/CRE 13.0 RATIO Normal 05-03 [facility] Comment on above: Performed By: #### L 500.2500, L100.0100, L501.9985 ####[facility] [address] [place], [address] Calcium [Mass/Vol] 8.8 mg/dL Normal 7.6-11.0 [facility] Comment on above: Performed By: #### L 500.2500, L100.0100, L501.9985 ####[facility] [address] [place], [address] Chloride [Moles/Vol] 108 mmol/L Normal 98-108 [facility] Comment on above: Performed By: #### L 500.2500, L100.0100, L501.9985 ####[facility] [address] [place], [address] CO2 [Moles/Vol] 24.2 mmol/L Normal 21.0-32.0 [facility] Comment on above: Performed By: #### L 500.2500, L100.0100, L501.9985 ####[facility] [address] [place], [address] Creatinine [Mass/Vol] 0.83 mg/dL Normal 0.70-1.20 [facility] Comment on above: Performed By: #### L 500.2500, L100.0100, L501.9985 ####[facility] [address] [place], [address] ECRCL 101.75 ml/min Normal 50-250 [facility] Comment on above: Performed By: #### L 500.2500, L100.0100, L501.9985 ####[facility] [address] [place], [address] GAP 7 Normal 5-15 [facility] Comment on above: Performed By: #### L 500.2500, L100.0100, L501.9985 ####[facility] [address] [place], [address] GFR/1.73 sq M.predicted among non-blacks MDRD (S/P/Bld) [Vol rate/Area] 82 mL/min/{1.73_m2} Normal >60 [facility] Comment on above: Result Comment: mL/m in/1.73m2 CKD-EPI Creatinine Equation (2020) Performed By: #### L 500.2500, L100.0100, L501.9985 ####[facility] [address] [place], [address] Glucose [Mass/Vol] 136 mg/dL High 70-99 [facility] Comment on above: Performed By: #### L 500.2500, L100.0100, L501.9985 ####[facility] [address] [place], [address] Potassium [Moles/Vol] 4.4 mmol/L Normal 3.3-5.1 [facility] Comment on above: Performed By: #### L 500.2500, L100.0100, L501.9985 ####[facility] [address] [place], [address] Sodium [Moles/Vol] 140 mmol/L Normal 133-145 [facility] Comment on above: Performed By: #### L 500.2500, L100.0100, L501.9985 ####[facility] [address] [place], [address] Urea nitrogen [Mass/Vol] 11 mg/dL Normal 4-19 [facility] Comment on above: Performed By: #### L 500.2500, L100.0100, L501.9985 ####[facility] [address] [place], [address] Basophil percentageOrdered B y: Edith Wolff on 12-22-2024 Basophils/100 WBC (Bld) 0.7 % 0-1 [facility] Blood cultureOrdered By: Justino Haq on 12-22-2024 Bacteria identified Cx Nom (Bld) No growth in 5 days. [facility] CBC W/Diff, Automatedon 12-13 0-2024 Absolute Lymph 1.36 X10 3/uL Normal 0.83-4.51 [facility] Comment on above: Performed By: #### L 500.2500, L100.0100, L501.9985 ####[facility] [address] [place], [address] Absolute Neut 4.7 X10 3/uL Normal 2.0-7.7 [facility] Comment on above: Performed By: #### L 500.2500, L100.0100, L501.9985 ####[facility] [address] [place], [address] Basophils/100 WBC (Bld) 0.7 % Normal 0-1 [facility] Comment on above: Performed By: #### L 500.2500, L100.0100, L501.9985 ####[facility] [address] [place], [address] Eosinophils/100 WBC (Bld) 3.7 % Normal 0-5 [facility] Comment on above: Performed By: #### L 500.2500, L100.0100, L501.9985 ####[facility] [address] [place], [address] Erythrocyte distribution width (RBC) [Ratio] 14.6 % Normal 11.6-14.6 [facility] Comment on above: Performed By: #### L 500.2500, L100.0100, L501.9985 ####[facility] [address] [place], [address] Hematocrit (Bld) [Volume fraction] 32.5 % Low 37-47 [facility] Comment on above: Performed By: #### L 500.2500, L100.0100, L501.9985 ####[facility] [address] [place], [address] Hemoglobin (Bld) [Mass/Vol] 10.5 g/dL Low 12.0-15.0 [facility] Comment on above: Performed By: #### L 500.2500, L100.0100, L501.9985 ####[facility] [address] [place], [address] IG% 0.400 Normal 0.0-0.9 [facility] Comment on above: Result Comment: IG% - Immature Granulocytes (promyelocytes, myelocytes andmetamyelocytes) > 1% indicates that a LEFT SHIFT is Present. Performed By: #### L 500.2500, L100.0100, L501.9985 ####[facility] [address] [place], [address] Lymphocytes/100 WBC (Bld) 19.1 % Normal 19-41 [facility] Comment on above: Performed By: #### L 500.2500, L100.0100, L501.9985 ####[facility] [address] [place], [address] MCH (RBC) [Entitic mass] 28.9 pg Normal 27.0-32.0 [facility] Comment on above: Performed By: #### L 500.2500, L100.0100, L501.9985 ####[facility] [address] [place], [address] MCHC (RBC) [Mass/Vol] 32.3 g/dL Normal 32-36 [facility] Comment on above: Performed By: #### L 500.2500, L100.0100, L501.9985 ####[facility] [address] [place], [address] MCV (RBC) [Entitic vol] 89.5 fL Normal 81-99 [facility] Comment on above: Performed By: #### L 500.2500, L100.0100, L501.9985 ####[facility] [address] [place], [address] Monocytes/100 WBC (Bld) 10.5 % High 0-10 [facility] Comment on above: Performed By: #### L 500.2500, L100.0100, L501.9985 ####[facility] [address] [place], [address] Neutrophils/100 WBC (Bld) 65.6 % Normal 47-70 [facility] Comment on above: Performed By: #### L 500.2500, L100.0100, L501.9985 ####[facility] [address] [place], [address] Nucleated RBC (Bld) [#/Vol] 0 10*3/uL Normal 0-5 [facility] Comment on above: Performed By: #### L 500.2500, L100.0100, L501.9985 ####[facility] [address] [place], [address] Platelet mean volume (Bld) [Entitic vol] 10.0 fL Normal 6.2-12.0 [facility] Comment on above: Performed By: #### L 500.2500, L100.0100, L501.9985 ####[facility] [address] [place], [address] Platelets (Bld) [#/Vol] 113 10*3/uL Low 150-450 [facility] Comment on above: Performed By: #### L 500.2500, L100.0100, L501.9985 ####[facility] [address] [place], [address] RBC (Bld) [#/Vol] 3.63 10*6/uL Low 4.2-5.4 [facility] Comment on above: Performed By: #### L 500.2500, L100.0100, L501.9985 ####[facility] [address] [place], [address] RDW SD 47.6 fl High 35.1-43.9 [facility] Comment on above: Performed By: #### L 500.2500, L100.0100, L501.9985 ####[facility] [address] [place], [address] WBC (Bld) [#/Vol] 7.1 10*3/uL Normal 4.4-11.0 [facility] Comment on above: Performed By: #### L 500.2500, L100.0100, L501.9985 ####[facility] [address] [place], [address] Carbon dioxide, total [Moles /volume] in Central venous bloodOrdered By: Edith Wolff on 12-22-2024 CO2 [Moles/Vol] 24.2 mmol/L 21.0-32.0 [facility] Chloride assayOrdered By: Jalen Wolff on 12-22-2024 Chloride [Moles/Vol] 108 mmol/L 98-108 [facility] Electrocardiogram reportOrde red By: Kasandra Hinkle on 12-22-2024 EKG study [facility] Work Phone: [phone] EKG study [facility] Work Phone: [phone] Eosinophil percentageOrdered By: Edith Wolff on 12-22-2024 Eosinophils/100 WBC (Bld) 3.7 % 0-5 [facility] Erythrocyte distribution wid th ratioOrdered By: Edith Wolff on 12-22-2024 Erythrocyte distribution width (RBC) [Ratio] 14.6 % 11.6-14.6 [facility] Erythrocyte distribution wid th standard deviationOrdered By: Edith Wolff on 12-22-2024 Erythrocyte distribution width (RBC) [Ratio] 47.6 fl High 35.1-43.9 [facility] Glomerular filtration rate ( GFR) estimation/1.73 sq m using serum, plasma, or whole bOrdered By: Edith Wolff on 12-22-2024 GFR/1.73 sq M.predicted among non-blacks MDRD (S/P/Bld) [Vol rate/Area] 82 mL/min/{1.73_m2} >60 [facility] Gram Stainon 12-22-2024 GS List Antibiotics Las t 48 Hours? vancomycin List Antibiotics to be Started? vancomycin PICC LINE TIP end of picc line had been sent home with Gram Stain 3+ Red Blood Cells No White Blood Cells No organisms seen Normal [facility] Comment on above: Performed By: #### M 100.3000, M100.2000, M100.4001 ####[facility] [address] [place], [place], [id number] Hematocrit Auto (Bld) [Volum e fraction]Ordered By: Edith Wolff on 12-22-2024 Hematocrit (Bld) [Volume fraction] 32.5 % Low 37-47 [facility] Hemoglobin A1con 12-22-2024 HbA1c (Bld) [Mass fraction] 11.5 % High <=5.6 [facility] Comment on above: Result Comment: Norm al < 5.7 % Prediabetic 5.7 - 6.4 % Diabetic >or= 6.5 % Please note range changes. Performed By: #### L 500.2500, L100.0100, L501.9985 ####[facility] [address] [place], [place], [id number] Hemoglobin A1c percentageOrd ered By: Edith Wolff on 12-22-2024 HbA1c (Bld) [Mass fraction] 11.5 % High <5.7 [facility] Hemoglobin measurementOrdere d By: Edith Wolff on 12-22-2024 Hemoglobin (Bld) [Mass/Vol] 10.5 g/dL Low 12.0-15.0 [facility] Immature granulocytes/100 WB C Auto (Bld)Ordered By: Edith Wolff on 12-22-2024 Immature granulocytes/100 WBC (Bld) 0.400 % 0.0-0.9 [facility] MCV (mean corpuscular volume ) determinationOrdered By: Edith Wolff on 12-22-2024 MCV (RBC) [Entitic vol] 89.5 fL 81-99 [facility] Mean corpuscular hemoglobin (MCH) determinationOrdered By: Edith Wolff on 12-22-2024 MCH (RBC) [Entitic mass] 28.9 pg 27.0-32.0 [facility] Monocyte percentageOrdered B y: Edith Wolff on 12-22-2024 Monocytes/100 WBC (Bld) 10.5 % High 0-10 [facility] Neutrophil percentageOrdered By: Edith Wolff on 12-22-2024 Neutrophils/100 WBC (Bld) 65.6 % 47-70 [facility] Platelet countOrdered By: Jalen Wolff on 12-22-2024 Platelets (Bld) [#/Vol] 113 10*3/uL Low 150-450 [facility] Potassium measurement (mass/ volume)Ordered By: Edith Wolff on 12-22-2024 Potassium (Unsp spec) [Mass/Vol] 4.4 mmol/L 3.3-5.1 [facility] RBC Auto (Bld) [#/Vol]Ordere d By: Edith Wolff on 12-22-2024 RBC (Bld) [#/Vol] 3.63 10*6/uL Low 4.2-5.4 [facility] Serum creatinine measurement (mass/volume)Ordered By: Edith Wolff on 12-22-2024 Creatinine [Mass/Vol] 0.83 mg/dL 0.70-1.20 [facility] Serum glucose measurement (m ass/volume)Ordered By: Edith Wolff on 12-22-2024 Glucose [Mass/Vol] 136 mg/dL High 70-99 [facility] Serum or plasma calcium johnathon urement (mass/volume)Ordered By: Edith Wolff on 12-22-2024 Calcium [Mass/Vol] 8.8 mg/dL 7.6-11.0 [facility] Serum or plasma urea nitroge n measurement (mass/volume)Ordered By: Edith Wolff on 12-22-2024 Urea nitrogen [Mass/Vol] 11 mg/dL 4-19 [facility] Sodium levelOrdered By: Edith Wolff on 12-22-2024 Sodium [Moles/Vol] 140 mmol/L 133-145 [facility] Trough vancomycin levelOrder ed By: Nicole Dobson on 12-22-2024 Vancomycin trough [Mass/Vol] 18.8 ug/mL High 5.0-15.0 [facility] Vancomycin, Trough Levelon 0 12-22-2024 VANCO, TROUGH 18.8 ug/mL High 5.0-15.0 [facility] Comment on above: Order Comment: Comme nts: Trough to be drawn 30 mins prior to scheduled [id number] Result Comment: Be mmended goal trough ranges [...] therapy recommended for serious lifethreatening infections include:- Sfmguvfapb-Ippumoingyfx-Mfstulwjv (Ventilator/Healtcare Associated)-SepsisPLEASE CONTACT PHARMACY SERVICES (#6606) FOR INTERPRETATIONOF RESULTS. Performed By: #### L 501.8820 ####[facility] [address] [place], [place], [id number] White blood cell (WBC) count Ordered By: Edith Wolff on 12-22-2024 WBC (Bld) [#/Vol] 7.1 10*3/uL 4.4-11.0 [facility] Anaerobic cultureOrdered By: Nicole Dobson on 12-21-2024 Bacteria identified Anaer cx Nom (Unsp spec) No growth in 5 days. [facility] BC GPC IDon 12-21-2024 BC GPC ID Normal [facility] Comment on above: Performed By: #### M 100.636, L500.4050, M200.1000, L503.6005, L300.4310, L300.3900, L100.0100 ####[facility] [address] [place], [address] Bedside Glucoseon 12-21-2024 FINGERSTICK GLU 248 mg/dL High 74-106 [facility] Comment on above: Result Comment: ELLIOTT ESTRADA OF PATIENT CARE PER NURSING PROTOCOL Performed By: #### L 501.080 ####[facility] [address] [place], [address] Bilirubin, totalOrdered By: Nicole Dobson on 12-21-2024 Bilirubin [Mass/Vol] 0.45 mg/dL 0.00-1.30 [facility] Blood cultureOrdered By: Justino Haq on 12-21-2024 Bacteria identified Cx Nom (Bld) Meth. resistant Staph. aureus Abnormal [facility] CBC W/Diff, Automatedon Absolute Lymph 1.29 X10 3/uL Normal 0.83-4.51 [facility] Comment on above: Performed By: #### L 500.4050, L100.0100 ####[facility] [address] [place], [address] Absolute Neut 8.1 X10 3/uL High 2.0-7.7 [facility] Comment on above: Performed By: #### L 500.4050, L100.0100 ####[facility] [address] [place], [address] Basophils/100 WBC (Bld) 0.5 % Normal 0-1 [facility] Comment on above: Performed By: #### L 500.4050, L100.0100 ####[facility] [address] [place], [address] Eosinophils/100 WBC (Bld) 0.1 % Normal 0-5 [facility] Comment on above: Performed By: #### L 500.4050, L100.0100 ####[facility] [address] [place], [address] Erythrocyte distribution width (RBC) [Ratio] 14.6 % Normal 11.6-14.6 [facility] Comment on above: Performed By: #### L 500.4050, L100.0100 ####[facility] [address] [place], [address] Hematocrit (Bld) [Volume fraction] 33.3 % Low 37-47 [facility] Comment on above: Performed By: #### L 500.4050, L100.0100 ####[facility] [address] [place], [address] Hemoglobin (Bld) [Mass/Vol] 11.1 g/dL Low 12.0-15.0 [facility] Comment on above: Performed By: #### L 500.4050, L100.0100 ####[facility] [address] [place], [address] IG% 0.400 Normal 0.0-0.9 [facility] Comment on above: Result Comment: IG% - Immature Granulocytes (promyelocytes, myelocytes andmetamyelocytes) > 1% indicates that a LEFT SHIFT is Present. Performed By: #### L 500.4050, L100.0100 ####[facility] [address] [place], [address] Lymphocytes/100 WBC (Bld) 12.6 % Low 19-41 [facility] Comment on above: Performed By: #### L 500.4050, L100.0100 ####[facility] [address] [place], [address] MCH (RBC) [Entitic mass] 29.5 pg Normal 27.0-32.0 [facility] Comment on above: Performed By: #### L 500.4050, L100.0100 ####[facility] [address] [place], [address] MCHC (RBC) [Mass/Vol] 33.3 g/dL Normal 32-36 [facility] Comment on above: Performed By: #### L 500.4050, L100.0100 ####[facility] [address] [place], [address] MCV (RBC) [Entitic vol] 88.6 fL Normal 81-99 [facility] Comment on above: Performed By: #### L 500.4050, L100.0100 ####[facility] [address] [place], [address] Monocytes/100 WBC (Bld) 7.6 % Normal 0-10 [facility] Comment on above: Performed By: #### L 500.4050, L100.0100 ####[facility] [address] [place], [address] Neutrophils/100 WBC (Bld) 78.8 % High 47-70 [facility] Comment on above: Performed By: #### L 500.4050, L100.0100 ####[facility] [address] [place], [address] Nucleated RBC (Bld) [#/Vol] 0 10*3/uL Normal 0-5 [facility] Comment on above: Performed By: #### L 500.4050, L100.0100 ####[facility] [address] [place], [address] Platelet mean volume (Bld) [Entitic vol] 10.0 fL Normal 6.2-12.0 [facility] Comment on above: Performed By: #### L 500.4050, L100.0100 ####[facility] [address] [place], [address] Platelets (Bld) [#/Vol] 115 10*3/uL Low 150-450 [facility] Comment on above: Performed By: #### L 500.4050, L100.0100 ####[facility] [address] [place], [address] RBC (Bld) [#/Vol] 3.76 10*6/uL Low 4.2-5.4 [facility] Comment on above: Performed By: #### L 500.4050, L100.0100 ####[facility] [address] [place], [address] RDW SD 47.0 fl High 35.1-43.9 [facility] Comment on above: Performed By: #### L 500.4050, L100.0100 ####[facility] [address] [place], [address] WBC (Bld) [#/Vol] 10.3 10*3/uL Normal 4.4-11.0 [facility] Comment on above: Performed By: #### L 500.4050, L100.0100 ####[facility] [address] [place], [address] Comprehensive Metabolic Prof deon 12-21-2024 Albumin [Mass/Vol] 3.2 g/dL Low 3.5-5.0 [facility] Comment on above: Performed By: #### L 500.4050, L100.0100 ####[facility] [address] [place], [address] Albumin/Globulin [Mass ratio] 1.1 {ratio} Normal 0.9-2.4 [facility] Comment on above: Performed By: #### L 500.4050, L100.0100 ####[facility] [address] [place], [address] ALK PHOS 141 U/L High 35-104 [facility] Comment on above: Performed By: #### L 500.4050, L100.0100 ####[facility] [address] [place], [address] ALT [Catalytic activity/Vol] 17 U/L Normal <=34 [facility] Comment on above: Performed By: #### L 500.4050, L100.0100 ####[facility] [address] [place], [address] AST [Catalytic activity/Vol] 17 U/L Normal <=31 [facility] Comment on above: Performed By: #### L 500.4050, L100.0100 ####[facility] [address] [place], [address] Bilirubin [Mass/Vol] 0.45 mg/dL Normal 0.00-1.30 [facility] Comment on above: Performed By: #### L 500.4050, L100.0100 ####[facility] [address] [place], [address] BUN/CRE 16.9 RATIO Normal 10-20 [facility] Comment on above: Performed By: #### L 500.4050, L100.0100 ####[facility] [address] [place], [address] Calcium [Mass/Vol] 8.4 mg/dL Normal 7.6-11.0 [facility] Comment on above: Performed By: #### L 500.4050, L100.0100 ####[facility] [address] [place], [address] Chloride [Moles/Vol] 104 mmol/L Normal 98-108 [facility] Comment on above: Performed By: #### L 500.4050, L100.0100 ####[facility] [address] [place], [address] CO2 [Moles/Vol] 22.0 mmol/L Normal 21.0-32.0 [facility] Comment on above: Performed By: #### L 500.4050, L100.0100 ####[facility] [address] [place], [address] Creatinine [Mass/Vol] 0.83 mg/dL Normal 0.70-1.20 [facility] Comment on above: Performed By: #### L 500.4050, L100.0100 ####[facility] [address] [place], [address] ECRCL 100.58 ml/min Normal 50-250 [facility] Comment on above: Performed By: #### L 500.4050, L100.0100 ####[facility] [address] [place], [address] GAP 9 Normal 5-15 [facility] Comment on above: Performed By: #### L 500.4050, L100.0100 ####[facility] [address] [place], [address] GFR/1.73 sq M.predicted among non-blacks MDRD (S/P/Bld) [Vol rate/Area] 81 mL/min/{1.73_m2} Normal >60 [facility] Comment on above: Result Comment: mL/m in/1.73m2 CKD-EPI Creatinine Equation (2020) Performed By: #### L 500.4050, L100.0100 ####[facility] [address] [place], [address] Globulin (S) [Mass/Vol] 2.9 g/dL Normal 2.2-4.2 [facility] Comment on above: Performed By: #### L 500.4050, L100.0100 ####[facility] [address] [place], [address] Glucose [Mass/Vol] 253 mg/dL High 70-99 [facility] Comment on above: Performed By: #### L 500.4050, L100.0100 ####[facility] [address] [place], [address] Potassium [Moles/Vol] 3.9 mmol/L Normal 3.3-5.1 [facility] Comment on above: Performed By: #### L 500.4050, L100.0100 ####[facility] [address] [place], [address] Sodium [Moles/Vol] 135 mmol/L Normal 133-145 [facility] Comment on above: Performed By: #### L 500.4050, L100.0100 ####[facility] [address] [place], [address] T PROT 6.1 g/dL Normal 5.9-8.4 [facility] Comment on above: Performed By: #### L 500.4050, L100.0100 ####[facility] [address] [place], [address] Urea nitrogen [Mass/Vol] 14 mg/dL Normal 4-19 [facility] Comment on above: Performed By: #### L 500.4050, L100.0100 ####[facility] [address] [place], [address] Consultation - Infectious Dx on 12-21-2024 Consultation - Infectious Dx Normal [facility] Gram stainOrdered By: Nicole Dobson on 12-21-2024 Microscopic observation Gram stain Nom (Unsp spec) [facility] No Panel InformationOrdered By: Nicole Dobson on 12-21-2024 17 U/L <32 [facility] Organism identificationOrder ed By: Michel Haq on 12-21-2024 Microorganism identified Cx Nom (Unsp spec) Meth. resistant Staph. aureus Abnormal [facility] Serum globulin measurementOr dered By: Nicole Dobson on 12-21-2024 Globulin (S) [Mass/Vol] 2.9 g/dL 2.2-4.2 [facility] Serum or plasma alanine guzman otransferase (ALT) measurementOrdered By: Nicole Bronson on 12-21-2024 ALT [Catalytic activity/Vol] 17 U/L <35 [facility] Serum or plasma albumin johnathon urement (mass/volume)Ordered By: Nicole Dobson on 12-21-2024 Albumin [Mass/Vol] 3.2 g/dL Low 3.5-5.0 [facility] Serum or plasma albumin/glob ulin mass ratioOrdered By: Nicole Bronson on 12-21-2024 Albumin/Globulin [Mass ratio] 1.1 {ratio} 0.9-2.4 [facility] Serum or plasma alkaline tabitha sphatase measurementOrdered By: Nicole Brnoson on 12-21-2024 ALP [Catalytic activity/Vol] 141 U/L High 35-104 [facility] Total proteinOrdered By: Daxa jatin Dobson on 12-21-2024 Protein [Mass/Vol] 6.1 g/dL 5.9-8.4 [facility] 12 Lead EKGon 12-20-2024 12 Lead EKG Normal [facility] Abdomen/Pelvis W IV Cont ONL Yon 12-20-2024 Abdomen/Pelvis W IV Cont ONLY Normal [facility] Absolute lymphocyte countOrd ered By: Hannah Nevarez on 12-20-2024 Lymphocytes Auto (Unsp spec) [#/Vol] 0.75 10*3/uL Low 0.83-4.51 [facility] Activated partial thrombopla stin time (aPTT) in platelet poor plasma by coagulation aOrdered By: Hannah Nevarez on 12-20-2024 aPTT Coag (PPP) [Time] 23.8 s Low 24.1-36.2 [facility] Anion gap in Serum or Plasma Ordered By: Hannah Nevarez on 12-20-2024 Anion gap [Moles/Vol] 12 mmol/L 5-15 [facility] Automated lymphocyte count a s percentage of total leukocytesOrdered By: Hannah Nevarez on 12-20-2024 Lymphocytes/100 WBC Auto (Unsp spec) 7.4 % Low 19-41 [facility] BUN/creatinine ratioOrdered By: Hannah Nevarez on 12-20-2024 Urea nitrogen/Creatinine [Mass ratio] 11.9 mg/mg 10-20 [facility] Basophil percentageOrdered B y: Hannah Nevarez on 12-20-2024 Basophils/100 WBC (Bld) 0.5 % 0-1 [facility] Bedside Glucoseon 12-20-2024 FINGERSTICK GLU 315 mg/dL High 74-106 [facility] Comment on above: Result Comment: ELLIOTT ESTRADA OF PATIENT CARE PER NURSING PROTOCOL Performed By: #### L 501.080 ####[facility] [address] [place], [address] Bilirubin Test strip Ql (U)O rdered By: Hannah Nevarez on 12-20-2024 Bilirubin Ql (U) Negative Negative [facility] Bilirubin, totalOrdered By: Hannah Nevarez on 12-20-2024 Bilirubin [Mass/Vol] 0.60 mg/dL 0.00-1.30 [facility] Blood cultureOrdered By: Evie Nevarez on 12-20-2024 Bacteria identified Cx Nom (Bld) Staphylococcus aureus Abnormal [facility] Bacteria identified Cx Nom (Bld) Meth. resistant Staph. aureus Abnormal [facility] CBC W/Diff, Automatedon 06 Absolute Lymph 0.75 X10 3/uL Low 0.83-4.51 [facility] Comment on above: Performed By: #### M 100.636, L500.4050, M200.1000, L503.6005, L300.4310, L300.3900, L100.0100 ####[facility] [address] [place], [address] Absolute Neut 8.7 X10 3/uL High 2.0-7.7 [facility] Comment on above: Performed By: #### M 100.636, L500.4050, M200.1000, L503.6005, L300.4310, L300.3900, L100.0100 ####[facility] [address] [place], [address] Basophils/100 WBC (Bld) 0.5 % Normal 0-1 [facility] Comment on above: Performed By: #### M 100.636, L500.4050, M200.1000, L503.6005, L300.4310, L300.3900, L100.0100 ####[facility] [address] [place], [address] Eosinophils/100 WBC (Bld) 0.3 % Normal 0-5 [facility] Comment on above: Performed By: #### M 100.636, L500.4050, M200.1000, L503.6005, L300.4310, L300.3900, L100.0100 ####[facility] [address] [place], [address] Erythrocyte distribution width (RBC) [Ratio] 14.5 % Normal 11.6-14.6 [facility] Comment on above: Performed By: #### M 100.636, L500.4050, M200.1000, L503.6005, L300.4310, L300.3900, L100.0100 ####[facility] [address] [place], [address] Hematocrit (Bld) [Volume fraction] 42.0 % Normal 37-47 [facility] Comment on above: Performed By: #### M 100.636, L500.4050, M200.1000, L503.6005, L300.4310, L300.3900, L100.0100 ####[facility] [address] [place], [address] Hemoglobin (Bld) [Mass/Vol] 14.2 g/dL Normal 12.0-15.0 [facility] Comment on above: Performed By: #### M 100.636, L500.4050, M200.1000, L503.6005, L300.4310, L300.3900, L100.0100 ####[facility] [address] [place], [address] IG% 0.500 Normal 0.0-0.9 [facility] Comment on above: Result Comment: IG% - Immature Granulocytes (promyelocytes, myelocytes andmetamyelocytes) > 1% indicates that a LEFT SHIFT is Present. Performed By: #### M 100.636, L500.4050, M200.1000, L503.6005, L300.4310, L300.3900, L100.0100 ####[facility] [address] [place], [address] Lymphocytes/100 WBC (Bld) 7.4 % Low 19-41 [facility] Comment on above: Performed By: #### M 100.636, L500.4050, M200.1000, L503.6005, L300.4310, L300.3900, L100.0100 ####[facility] [address] [place], [address] MCH (RBC) [Entitic mass] 29.8 pg Normal 27.0-32.0 [facility] Comment on above: Performed By: #### M 100.636, L500.4050, M200.1000, L503.6005, L300.4310, L300.3900, L100.0100 ####[facility] [address] [place], [address] MCHC (RBC) [Mass/Vol] 33.8 g/dL Normal 32-36 [facility] Comment on above: Performed By: #### M 100.636, L500.4050, M200.1000, L503.6005, L300.4310, L300.3900, L100.0100 ####[facility] [address] [place], [address] MCV (RBC) [Entitic vol] 88.2 fL Normal 81-99 [facility] Comment on above: Performed By: #### M 100.636, L500.4050, M200.1000, L503.6005, L300.4310, L300.3900, L100.0100 ####[facility] [address] [place], [address] Monocytes/100 WBC (Bld) 5.4 % Normal 0-10 [facility] Comment on above: Performed By: #### M 100.636, L500.4050, M200.1000, L503.6005, L300.4310, L300.3900, L100.0100 ####[facility] [address] [place], [address] Neutrophils/100 WBC (Bld) 85.9 % High 47-70 [facility] Comment on above: Performed By: #### M 100.636, L500.4050, M200.1000, L503.6005, L300.4310, L300.3900, L100.0100 ####[facility] [address] [place], [address] Nucleated RBC (Bld) [#/Vol] 0 10*3/uL Normal 0-5 [facility] Comment on above: Performed By: #### M 100.636, L500.4050, M200.1000, L503.6005, L300.4310, L300.3900, L100.0100 ####[facility] [address] [place], [address] Platelet mean volume (Bld) [Entitic vol] 9.6 fL Normal 6.2-12.0 [facility] Comment on above: Performed By: #### M 100.636, L500.4050, M200.1000, L503.6005, L300.4310, L300.3900, L100.0100 ####[facility] [address] [place], [address] Platelets (Bld) [#/Vol] 147 10*3/uL Low 150-450 [facility] Comment on above: Performed By: #### M 100.636, L500.4050, M200.1000, L503.6005, L300.4310, L300.3900, L100.0100 ####[facility] [address] [place], [address] RBC (Bld) [#/Vol] 4.76 10*6/uL Normal 4.2-5.4 [facility] Comment on above: Performed By: #### M 100.636, L500.4050, M200.1000, L503.6005, L300.4310, L300.3900, L100.0100 ####[facility] [address] [place], [address] RDW SD 46.1 fl High 35.1-43.9 [facility] Comment on above: Performed By: #### M 100.636, L500.4050, M200.1000, L503.6005, L300.4310, L300.3900, L100.0100 ####[facility] [address] [place], [address] WBC (Bld) [#/Vol] 10.1 10*3/uL Normal 4.4-11.0 [facility] Comment on above: Performed By: #### M 100.636, L500.4050, M200.1000, L503.6005, L300.4310, L300.3900, L100.0100 ####[facility] [address] [place], [address] CRPon 12-20-2024 C-REACTIVE PROT 25.40 mg/L High 0.0-3.0 [facility] Comment on above: Performed By: #### L 501.6710 ####[facility] [address] [place], [address] Carbon dioxide, total [Moles /volume] in Central venous bloodOrdered By: Hannah Nevarez on 12-20-2024 CO2 [Moles/Vol] 24.3 mmol/L 21.0-32.0 [facility] Chest 1 View (Portable)on Chest 1 View (Portable) Normal [facility] Chloride assayOrdered By: Kyree Nevarez on 12-20-2024 Chloride [Moles/Vol] 96 mmol/L Low 98-108 [facility] Comprehensive Metabolic Prof ilon 12-20-2024 Albumin [Mass/Vol] 4.3 g/dL Normal 3.5-5.0 [facility] Comment on above: Performed By: #### M 100.636, L500.4050, M200.1000, L503.6005, L300.4310, L300.3900, L100.0100 ####[facility] [address] [place], [address] Albumin/Globulin [Mass ratio] 1.1 {ratio} Normal 0.9-2.4 [facility] Comment on above: Performed By: #### M 100.636, L500.4050, M200.1000, L503.6005, L300.4310, L300.3900, L100.0100 ####[facility] [address] [place], [address] ALK PHOS 207 U/L High 35-104 [facility] Comment on above: Performed By: #### M 100.636, L500.4050, M200.1000, L503.6005, L300.4310, L300.3900, L100.0100 ####[facility] [address] [place], [address] ALT [Catalytic activity/Vol] 21 U/L Normal <=34 [facility] Comment on above: Performed By: #### M 100.636, L500.4050, M200.1000, L503.6005, L300.4310, L300.3900, L100.0100 ####[facility] [address] [place], [address] AST [Catalytic activity/Vol] 22 U/L Normal <=31 [facility] Comment on above: Performed By: #### M 100.636, L500.4050, M200.1000, L503.6005, L300.4310, L300.3900, L100.0100 ####[facility] [address] [place], [address] Bilirubin [Mass/Vol] 0.60 mg/dL Normal 0.00-1.30 [facility] Comment on above: Performed By: #### M 100.636, L500.4050, M200.1000, L503.6005, L300.4310, L300.3900, L100.0100 ####[facility] [address] [place], [address] BUN/CRE 11.9 RATIO Normal 10-20 [facility] Comment on above: Performed By: #### M 100.636, L500.4050, M200.1000, L503.6005, L300.4310, L300.3900, L100.0100 ####[facility] [address] [place], [address] Calcium [Mass/Vol] 9.8 mg/dL Normal 7.6-11.0 [facility] Comment on above: Performed By: #### M 100.636, L500.4050, M200.1000, L503.6005, L300.4310, L300.3900, L100.0100 ####[facility] [address] [place], [address] Chloride [Moles/Vol] 96 mmol/L Low 98-108 [facility] Comment on above: Performed By: #### M 100.636, L500.4050, M200.1000, L503.6005, L300.4310, L300.3900, L100.0100 ####[facility] [address] [place], [address] CO2 [Moles/Vol] 24.3 mmol/L Normal 21.0-32.0 [facility] Comment on above: Performed By: #### M 100.636, L500.4050, M200.1000, L503.6005, L300.4310, L300.3900, L100.0100 ####[facility] [address] [place], [address] Creatinine [Mass/Vol] 0.99 mg/dL Normal 0.70-1.20 [facility] Comment on above: Performed By: #### M 100.636, L500.4050, M200.1000, L503.6005, L300.4310, L300.3900, L100.0100 ####[facility] [address] [place], [address] ECRCL 84.17 ml/min Normal 50-250 [facility] Comment on above: Performed By: #### M 100.636, L500.4050, M200.1000, L503.6005, L300.4310, L300.3900, L100.0100 ####[facility] [address] [place], [address] GAP 12 Normal 5-15 [facility] Comment on above: Performed By: #### M 100.636, L500.4050, M200.1000, L503.6005, L300.4310, L300.3900, L100.0100 ####[facility] [address] [place], [address] GFR/1.73 sq M.predicted among non-blacks MDRD (S/P/Bld) [Vol rate/Area] 66 mL/min/{1.73_m2} Normal >60 [facility] Comment on above: Result Comment: mL/m in/1.73m2 CKD-EPI Creatinine Equation (2020) Performed By: #### M 100.636, L500.4050, M200.1000, L503.6005, L300.4310, L300.3900, L100.0100 ####[facility] [address] [place], [address] Globulin (S) [Mass/Vol] 4.0 g/dL Normal 2.2-4.2 [facility] Comment on above: Performed By: #### M 100.636, L500.4050, M200.1000, L503.6005, L300.4310, L300.3900, L100.0100 ####[facility] [address] [place], [address] Glucose [Mass/Vol] 347 mg/dL High 70-99 [facility] Comment on above: Performed By: #### M 100.636, L500.4050, M200.1000, L503.6005, L300.4310, L300.3900, L100.0100 ####[facility] [address] [place], [address] Potassium [Moles/Vol] 4.5 mmol/L Normal 3.3-5.1 [facility] Comment on above: Performed By: #### M 100.636, L500.4050, M200.1000, L503.6005, L300.4310, L300.3900, L100.0100 ####[facility] [address] [place], [address] Sodium [Moles/Vol] 133 mmol/L Normal 133-145 [facility] Comment on above: Performed By: #### M 100.636, L500.4050, M200.1000, L503.6005, L300.4310, L300.3900, L100.0100 ####[facility] [address] [place], [place], [id number] T PROT 8.3 g/dL Normal 5.9-8.4 [facility] Comment on above: Performed By: #### M 100.636, L500.4050, M200.1000, L503.6005, L300.4310, L300.3900, L100.0100 ####[facility] [address] [place], [address] Urea nitrogen [Mass/Vol] 12 mg/dL Normal 4-19 [facility] Comment on above: Performed By: #### M 100.636, L500.4050, M200.1000, L503.6005, L300.4310, L300.3900, L100.0100 ####[facility] [address] [place], [address] Emergency Department Summary on 12-20-2024 Emergency Department Summary Normal [facility] Eosinophil percentageOrdered By: Hannah Nevarez on 12-20-2024 Eosinophils/100 WBC (Bld) 0.3 % 0-5 [facility] Erythrocyte Sed Rateon 12-20 SED RATE 7 mm/hr Normal 0-30 [facility] Comment on above: Performed By: #### L 101.9900 ####[facility] [address] [place], [address] Erythrocyte distribution wid th ratioOrdered By: Hannah Nevarez on 12-20-2024 Erythrocyte distribution width (RBC) [Ratio] 14.5 % 11.6-14.6 [facility] Erythrocyte distribution wid th standard deviationOrdered By: Hannah Nevarez on 12-20-2024 Erythrocyte distribution width (RBC) [Ratio] 46.1 fl High 35.1-43.9 [facility] Erythrocyte sedimentation ra teOrdered By: Nicole Dobson on 12-20-2024 ESR (Bld) [Velocity] 7 mm/h 0-30 [facility] Glomerular filtration rate ( GFR) estimation/1.73 sq m using serum, plasma, or whole bOrdered By: Hannah Nevarez on 12-20-2024 GFR/1.73 sq M.predicted among non-blacks MDRD (S/P/Bld) [Vol rate/Area] 66 mL/min/{1.73_m2} >60 [facility] H AND P Exam - [place] 12-20-2024 H&P Exam - Hospitalist Normal [facility] Hematocrit Auto (Bld) [Volum e fraction]Ordered By: Hannah Nevarez on 12-20-2024 Hematocrit (Bld) [Volume fraction] 42.0 % 37-47 [facility] Hemoglobin measurementOrdere d By: Hannah Nevarez on 12-20-2024 Hemoglobin (Bld) [Mass/Vol] 14.2 g/dL 12.0-15.0 [facility] Immature granulocytes/100 WB C Auto (Bld)Ordered By: Hannah Nevarez on 12-20-2024 Immature granulocytes/100 WBC (Bld) 0.500 % 0.0-0.9 [facility] Ketones Test strip Ql (U)Ord ered By: Hannah Nevarez on 12-20-2024 Ketones Ql (U) Negative Negative [facility] Lactic Acidon 12-20-2024 Lactate [Moles/Vol] 1.8 mmol/L Normal 0.0-2.0 [facility] Comment on above: Performed By: #### L 503.6001 ####[facility] [address] [place], [place], [id number] Lactate [Moles/Vol] 2.3 mmol/L Invalid Interpretation Code 0.0-2.0 [facility] Comment on above: Order Comment: Y Result Comment: Crit ical Result(s) Called HORR at: 2017 by:APOORVA??Results read back by same. Performed By: #### M 100.636, L500.4050, M200.1000, L503.6005, L300.4310, L300.3900, L100.0100 ####[facility] [address] [place], [place], [id number] MCV (mean corpuscular volume ) determinationOrdered By: Hannah Nevarez on 12-20-2024 MCV (RBC) [Entitic vol] 88.2 fL 81-99 [facility] Mean corpuscular hemoglobin (MCH) determinationOrdered By: Hannah Nevarez on 12-20-2024 MCH (RBC) [Entitic mass] 29.8 pg 27.0-32.0 [facility] Monocyte percentageOrdered B y: Hannah Nevarez on 12-20-2024 Monocytes/100 WBC (Bld) 5.4 % 0-10 [facility] Mucus LM Ql (Urine sed)Order ed By: Hannah Nevarez on 12-20-2024 Mucus Ql (Urine sed) 0 SEEN /hpf [facility] Neutrophil percentageOrdered By: Hannah Nevarez on 12-20-2024 Neutrophils/100 WBC (Bld) 85.9 % High 47-70 [facility] Nitrite Test strip Ql (U)Ord ered By: Hannah Nevarez on 12-20-2024 Nitrite Ql (U) Negative Negative [facility] No Panel InformationOrdered By: Hannah Nevarez on 12-20-2024 22 U/L <32 [facility] Organism identificationOrder ed By: Hannah Nevarez on 12-20-2024 Microorganism identified Cx Nom (Unsp spec) Meth. resistant Staph. aureus Abnormal [facility] Partial Thromboplast Timeon 12-20-2024 aPTT Coag (Bld) [Time] 23.8 s Low 24.1-36.2 [facility] Comment on above: Performed By: #### M 100.636, L500.4050, M200.1000, L503.6005, L300.4310, L300.3900, L100.0100 ####[facility] [address] [place], [address] Platelet countOrdered By: Kyree Nevarez on 06-08-2025 Platelets (Bld) [#/Vol] 147 10*3/uL Low 150-450 [facility] Potassium measurement (mass/ volume)Ordered By: Hannah Nevarez on 12-20-2024 Potassium (Unsp spec) [Mass/Vol] 4.5 mmol/L 3.3-5.1 [facility] Protein Test strip Ql (U)Ord ered By: Hannah Nevarez on 12-20-2024 Protein Ql (U) 15 mg/dl High Negative [facility] Prothrombin Time w/INRon INR Coag (PPP) [Relative time] 1.1 {INR} Normal [facility] Comment on above: Performed By: #### M 100.636, L500.4050, M200.1000, L503.6005, L300.4310, L300.3900, L100.0100 ####[facility] [address] [place], [place], [id number] PT Coag (PPP) [Time] 13.9 s Normal 11.7-14.9 [facility] Comment on above: Performed By: #### M 100.636, L500.4050, M200.1000, L503.6005, L300.4310, L300.3900, L100.0100 ####[facility] [address] [place], [place], [id number] Prothrombin timeOrdered By: Hannah Nevarez on 12-20-2024 PT Coag (PPP) [Time] 13.9 s 11.7-14.9 [facility] RBC Auto (Bld) [#/Vol]Ordere d By: Hannah Nevarez on 12-20-2024 RBC (Bld) [#/Vol] 4.76 10*6/uL 4.2-5.4 [facility] Serum creatinine measurement (mass/volume)Ordered By: Hannah Nevarez on 12-20-2024 Creatinine [Mass/Vol] 0.99 mg/dL 0.70-1.20 [facility] Serum globulin measurementOr dered By: Hannah Nevarez on 12-20-2024 Globulin (S) [Mass/Vol] 4.0 g/dL 2.2-4.2 [facility] Serum glucose measurement (m ass/volume)Ordered By: Hannah Nevarez on 12-20-2024 Glucose [Mass/Vol] 347 mg/dL High 70-99 [facility] Serum or plasma C reactive p rotein measurement (mass/volume)Ordered By: Hannah Nevarez on 12-20-2024 CRP [Mass/Vol] 25.40 mg/L High 0.0-3.0 [facility] Serum or plasma alanine guzman otransferase (ALT) measurementOrdered By: Hannah Nevarez on 12-20-2024 ALT [Catalytic activity/Vol] 21 U/L <35 [facility] Serum or plasma albumin johnathon urement (mass/volume)Ordered By: Hannah Nevarez on 12-20-2024 Albumin [Mass/Vol] 4.3 g/dL 3.5-5.0 [facility] Serum or plasma albumin/glob ulin mass ratioOrdered By: aHnnah Nevarez on 12-20-2024 Albumin/Globulin [Mass ratio] 1.1 {ratio} 0.9-2.4 [facility] Serum or plasma alkaline tabitha sphatase measurementOrdered By: Hannah Nevarez on 12-20-2024 ALP [Catalytic activity/Vol] 207 U/L High 35-104 [facility] Serum or plasma calcium johnathon urement (mass/volume)Ordered By: Hannah Nevarez on 12-20-2024 Calcium [Mass/Vol] 9.8 mg/dL 7.6-11.0 [facility] Serum or plasma urea nitroge n measurement (mass/volume)Ordered By: Hannah Nevarez on 12-20-2024 Urea nitrogen [Mass/Vol] 12 mg/dL 4-19 [facility] Serum or plasma vancomycin m easurement (mass/volume)Ordered By: Hannah Nevarez on 12-20-2024 Vancomycin [Mass/Vol] < 4.0 ug/mL 0.0-15.0 [facility] Sodium levelOrdered By: Ronnell Nevarez on 12-20-2024 Sodium [Moles/Vol] 133 mmol/L 133-145 [facility] Spine Lumbar without Contras ton 12-20-2024 Spine Lumbar without Contrast Normal [facility] Squamous epithelial cells de tection in urine sediment by light microscopyOrdered By: Hannah Nevarez on 12-20-2024 Epithelial cells.squamous LM Ql (Urine sed) 0-5 SEEN /hpf 5-10 [facility] Total proteinOrdered By: Evie Nevarez on 12-20-2024 Protein [Mass/Vol] 8.3 g/dL 5.9-8.4 [facility] Urinalysis, Completeon 12-20 EPI,SQUAMOUS 0-5 SEEN Normal 5-10 [facility] Comment on above: Order Comment: NAOMI CTOR TO SPECIFY Performed By: #### L 400.0001 ####[facility] [address] [place], [address] RBC 0-5 SEEN Normal 0-5 [facility] Comment on above: Order Comment: NOAMI CTOR TO SPECIFY Performed By: #### L 400.0001 ####[facility] [address] [place], [address] WBC 0-5 SEEN Normal 0-5 [facility] Comment on above: Order Comment: NAOMI CTOR TO SPECIFY Performed By: #### L 400.0001 ####[facility] [address] [place], [address] BACTERIA 0 SEEN Normal None Seen [facility] Comment on above: Order Comment: NAOMI CTOR TO SPECIFY Performed By: #### L 400.0001 ####[facility] [address] [place], [address] Mucus Ql (Urine sed) 0 SEEN Normal [facility] Comment on above: Order Comment: NAOMI CTOR TO SPECIFY Performed By: #### L 400.0001 ####[facility] [address] [place], [address] Urine clarityOrdered By: Evie Nevarez on 12-20-2024 Clarity (U) Sl. Cloudy Clear [facility] Urine color determinationOrd ered By: Hannah Nevarez on 12-20-2024 Color (U) Yellow Yellow [facility] Urine cultureOrdered By: Evie Nevarez on 12-20-2024 Bacteria identified Cx Nom (U) Positive Abnormal [facility] Urine glucose detectionOrder ed By: Hannah Nevarez on 12-20-2024 Glucose Ql (U) 1000 mg/dl High Normal [facility] Urine leukocyte esterase det ection by dipstickOrdered By: Hannah Nevarez on 12-20-2024 Leukocyte esterase Test strip Ql (U) Negative Negative [facility] Urine pHOrdered By: Hannah foley on 12-20-2024 pH (U) 6.5 [pH] 5.0 - 8.0 [facility] Urine sediment bacteria coun t by microscopy (number/high power field)Ordered By: Hannah Nevarez on 12-20-2024 Bacteria LM.HPF (Urine sed) [#/Area] 0 /[HPF] None Seen [facility] Urine specific gravity measu rementOrdered By: Hannah Nevarez on 12-20-2024 Specific gravity (U) [Rel density] 1.015 1.002-1.030 [facility] Urine urobilinogen measureme ntOrdered By: Hannah Nevarez on 12-20-2024 Urobilinogen Ql (U) Normal mg/dl Normal [facility] Vancomycin, Random Levelon 0 12-20-2024 VANCO, RANDOM < 4.0 Normal 0.0-15.0 [facility] Comment on above: Result Comment: VANC OMYCIN STANDARD DRUG THERAPY: CRITICAL VALUE IS > 15.0 mg/LVANCOMYCIN HIGH INTENSITY THERAPY: CRITICAL VALUE IS > 20.0 mg/LPLEASE CONTACT PHARMACY SERVICES (#4413) FOR INTERPRETATIONOF RESULTS. THIS RESULT DOES NOT REPRESENT A PEAK OR TROUGHLEVEL FOR THIS DRUG. Performed By: #### L 501.8850 ####[facility] [address] [place], [address] White blood cell (WBC) count Ordered By: Hannah Nevarez on 12-20-2024 WBC (Bld) [#/Vol] 10.1 10*3/uL 4.4-11.0 [facility] White blood cell countOrdere d By: Hannah Nevarez on 12-20-2024 White blood cell count 0-5 SEEN /hpf 0-5 [facility] Anion gap in Serum or Plasma Ordered By: Michel Haq on 12-15-2024 Anion gap [Moles/Vol] 11 mmol/L - [facility] BUN/creatinine ratioOrdered By: Michel Haq on 12-15-2024 Urea nitrogen/Creatinine [Mass ratio] 17.3 mg/mg - [facility] Basic Metabolic Profile (BMP )on 12-15-2024 BUN/CRE 17.3 RATIO Normal - [facility] Comment on above: Performed By: #### L 501.8820, L100.0500, L500.2500 ####[facility] [address] [place], [address] Calcium [Mass/Vol] 9.4 mg/dL Normal 7.6-11.0 [facility] Comment on above: Performed By: #### L [id number], L100.0500, L500.2500 ####[facility] [id number] [place], [address] Chloride [Moles/Vol] 101 mmol/L Normal 98-108 [facility] Comment on above: Performed By: #### L [id number], L100.0500, L500.2500 ####[facility] [address] [place], [address] CO2 [Moles/Vol] 23.7 mmol/L Normal 21.0-32.0 [facility] Comment on above: Performed By: #### L [id number], L100.0500, L500.2500 ####[facility] [address] [place], [address] Creatinine [Mass/Vol] 0.80 mg/dL Normal 0.70-1.20 [facility] Comment on above: Performed By: #### L [id number], L100.0500, L500.2500 ####[facility] [id number] [place], [address] GAP 11 Normal 5-15 [facility] [facility] Comment on above: Performed By: #### L 501.8820, L100.0500, L500.2500 ####[facility] [address] [place], [address] GFR/1.73 sq M.predicted among non-blacks MDRD (S/P/Bld) [Vol rate/Area] 85 mL/min/{1.73_m2} Normal >60 [facility] Comment on above: Result Comment: mL/m in/1.73m2 CKD-EPI Creatinine Equation (2020) Performed By: #### L 501.8820, L100.0500, L500.2500 ####[facility] [address] [place], [address] Glucose [Mass/Vol] 214 mg/dL High 70-99 [facility] Comment on above: Performed By: #### L 501.8820, L100.0500, L500.2500 ####[facility] [address] [place], [address] Potassium [Moles/Vol] 4.5 mmol/L Normal 3.3-5.1 [facility] Comment on above: Performed By: #### L 501.8820, L100.0500, L500.2500 ####[facility] [address] [place], [address] Sodium [Moles/Vol] 137 mmol/L Normal 133-145 [facility] Comment on above: Performed By: #### L 501.8820, L100.0500, L500.2500 ####[facility] [address] [place], [address] Urea nitrogen [Mass/Vol] 14 mg/dL Normal 4-19 [facility] Comment on above: Performed By: #### L 501.8820, L100.0500, L500.2500 ####[facility] [address] [place], [address] CBC-Complete Blood Cnt No Di ffon 12-15-2024 Erythrocyte distribution width (RBC) [Ratio] 14.4 % Normal 11.6-14.6 [facility] Comment on above: Performed By: #### L 501.8820, L100.0500, L500.2500 ####[facility] [address] [place], [address] Hematocrit (Bld) [Volume fraction] 37.2 % Normal 37-47 [facility] Comment on above: Performed By: #### L 501.8820, L100.0500, L500.2500 ####[facility] [address] [place], [address] Hemoglobin (Bld) [Mass/Vol] 11.9 g/dL Low 12.0-15.0 [facility] Comment on above: Performed By: #### L 501.8820, L100.0500, L500.2500 ####[facility] [address] [place], [address] MCH (RBC) [Entitic mass] 29.2 pg Normal 27.0-32.0 [facility] Comment on above: Performed By: #### L 501.8820, L100.0500, L500.2500 ####[facility] [address] [place], [address] MCHC (RBC) [Mass/Vol] 32.0 g/dL Normal 32-36 [facility] Comment on above: Performed By: #### L 501.8820, L100.0500, L500.2500 ####[facility] [address] [place], [address] MCV (RBC) [Entitic vol] 91.4 fL Normal 81-99 [facility] Comment on above: Performed By: #### L 501.8820, L100.0500, L500.2500 ####[facility] [address] [place], [address] Platelet mean volume (Bld) [Entitic vol] 10.8 fL Normal 6.2-12.0 [facility] Comment on above: Performed By: #### L 501.8820, L100.0500, L500.2500 ####[facility] [address] [place], [address] Platelets (Bld) [#/Vol] 142 10*3/uL Low 150-450 [facility] Comment on above: Performed By: #### L 501.8820, L100.0500, L500.2500 ####[facility] [address] [place], [address] RBC (Bld) [#/Vol] 4.07 10*6/uL Low 4.2-5.4 [facility] Comment on above: Performed By: #### L 501.8820, L100.0500, L500.2500 ####[facility] [address] [place], [address] RDW SD 47.7 fl High 35.1-43.9 [facility] Comment on above: Performed By: #### L 501.8820, L100.0500, L500.2500 ####[facility] [address] [place], [address] WBC (Bld) [#/Vol] 7.7 10*3/uL Normal 4.4-11.0 [facility] Comment on above: Performed By: #### L 501.8820, L100.0500, L500.2500 ####[facility] [address] [place], [address] Carbon dioxide, total [Moles /volume] in Central venous bloodOrdered By: Michel Haq on 12-15-2024 CO2 [Moles/Vol] 23.7 mmol/L 21.0-32.0 [facility] Chloride assayOrdered By: Gabrielle Haq on 12-15-2024 Chloride [Moles/Vol] 101 mmol/L 98-108 [facility] Erythrocyte distribution wid th ratioOrdered By: Michel Haq on 12-15-2024 Erythrocyte distribution width (RBC) [Ratio] 14.4 % 11.6-14.6 [facility] Erythrocyte distribution wid th standard deviationOrdered By: Michel Haq on 12-15-2024 Erythrocyte distribution width (RBC) [Ratio] 47.7 fl High 35.1-43.9 [facility] Glomerular filtration rate ( GFR) estimation/1.73 sq m using serum, plasma, or whole bOrdered By: Michel Haq on 12-15-2024 GFR/1.73 sq M.predicted among non-blacks MDRD (S/P/Bld) [Vol rate/Area] 85 mL/min/{1.73_m2} >60 [facility] Hematocrit Auto (Bld) [Volum e fraction]Ordered By: Michel Haq on 12-15-2024 Hematocrit (Bld) [Volume fraction] 37.2 % 37-47 [facility] Hemoglobin measurementOrdere d By: Michel Haq on 12-15-2024 Hemoglobin (Bld) [Mass/Vol] 11.9 g/dL Low 12.0-15.0 [facility] MCV (mean corpuscular volume ) determinationOrdered By: Michel Haq on 12-15-2024 MCV (RBC) [Entitic vol] 91.4 fL 81-99 [facility] Mean corpuscular hemoglobin (MCH) determinationOrdered By: Michel Haq on 12-15-2024 MCH (RBC) [Entitic mass] 29.2 pg 27.0-32.0 [facility] Platelet countOrdered By: Gabrielle Haq on 12-15-2024 Platelets (Bld) [#/Vol] 142 10*3/uL Low 150-450 [facility] Potassium measurement (mass/ volume)Ordered By: Michel Haq on 12-15-2024 Potassium (Unsp spec) [Mass/Vol] 4.5 mmol/L 3.3-5.1 [facility] RBC Auto (Bld) [#/Vol]Ordere d By: Michel Haq on 12-15-2024 RBC (Bld) [#/Vol] 4.07 10*6/uL Low 4.2-5.4 [facility] Serum creatinine measurement (mass/volume)Ordered By: Michel Haq on 12-15-2024 Creatinine [Mass/Vol] 0.80 mg/dL 0.70-1.20 [facility] Serum glucose measurement (m ass/volume)Ordered By: Michel Haq on 12-15-2024 Glucose [Mass/Vol] 214 mg/dL High 70-99 [facility] Serum or plasma calcium johnathon urement (mass/volume)Ordered By: Michel Haq on 12-15-2024 Calcium [Mass/Vol] 9.4 mg/dL 7.6-11.0 [facility] Serum or plasma urea nitroge n measurement (mass/volume)Ordered By: Michel Haq on 12-15-2024 Urea nitrogen [Mass/Vol] 14 mg/dL 4-19 [facility] Sodium levelOrdered By: Pan Haq on 12-15-2024 Sodium [Moles/Vol] 137 mmol/L 133-145 [facility] Trough vancomycin levelOrder ed By: Michel Haq on 12-15-2024 Vancomycin trough [Mass/Vol] 18.5 ug/mL High 5.0-15.0 [facility] Vancomycin, Trough Levelon 0 12-15-2024 VANCO, TROUGH 18.5 ug/mL High 5.0-15.0 [facility] Comment on above: Order Comment: 1200 Result [...] therapy recommended for serious lifethreatening infections include:- Unftnhnbdi-Nqpcidouxmoy-Adettczdt (Ventilator/Healtcare Associated)-SepsisPLEASE CONTACT PHARMACY SERVICES (#4403) FOR INTERPRETATIONOF RESULTS. Performed By: #### L 501.8820, L100.0500, L500.2500 ####[facility] [address] [place], [address] White blood cell (WBC) count Ordered By: Michel Haq on 12-15-2024 WBC (Bld) [#/Vol] 7.7 10*3/uL 4.4-11.0 [facility] Endocrinology Visit Reporton 12-10-2024 Endocrinology Visit Report Normal [facility] No Panel InformationOrdered By: Sonia Quarles on 12-10-2024 11.2 % High 4.2-6.3 [facility] Internal Medicine Office Vis car 12-09-2024 Internal Medicine Office Visit Normal [facility] Anion gap in Serum or Plasma Ordered By: Michel Haq on 12-08-2024 Anion gap [Moles/Vol] 14 mmol/L - [facility] BUN/creatinine ratioOrdered By: Michel Haq on 12-08-2024 Urea nitrogen/Creatinine [Mass ratio] 14.4 mg/mg - [facility] Basic Metabolic Profile (BMP )on 12-08-2024 BUN/CRE 14.4 RATIO Normal - [facility] Comment on above: Performed By: #### L 501.8820, L500.2500, L100.0500 ####[facility] [address] [place], [address] Calcium [Mass/Vol] 9.4 mg/dL Normal 7.6-11.0 [facility] Comment on above: Performed By: #### L 501.8820, L500.2500, L100.0500 ####[facility] [address] [place], [address] Chloride [Moles/Vol] 99 mmol/L Normal 98-108 [facility] Comment on above: Performed By: #### L 501.8820, L500.2500, L100.0500 ####[facility] [address] [place], [address] CO2 [Moles/Vol] 21.2 mmol/L Normal 21.0-32.0 [facility] Comment on above: Performed By: #### L 501.8820, L500.2500, L100.0500 ####[facility] [address] [place], [address] Creatinine [Mass/Vol] 0.86 mg/dL Normal 0.70-1.20 [facility] Comment on above: Performed By: #### L 501.8820, L500.2500, L100.0500 ####[facility] [address] [place], [address] GAP 14 Normal 5-15 [facility] Comment on above: Performed By: #### L 501.8820, L500.2500, L100.0500 ####[facility] [address] [place], [address] GFR/1.73 sq M.predicted among non-blacks MDRD (S/P/Bld) [Vol rate/Area] 79 mL/min/{1.73_m2} Normal >60 [facility] Comment on above: Result Comment: mL/m in/1.73m2 CKD-EPI Creatinine Equation (2020) Performed By: #### L 501.8820, L500.2500, L100.0500 ####[facility] [address] [place], [address] Glucose [Mass/Vol] 334 mg/dL High 70-99 [facility] Comment on above: Performed By: #### L 501.8820, L500.2500, L100.0500 ####[facility] [address] [place], [address] Potassium [Moles/Vol] 4.3 mmol/L Normal 3.3-5.1 [facility] Comment on above: Performed By: #### L 501.8820, L500.2500, L100.0500 ####[facility] [address] [place], [address] Sodium [Moles/Vol] 135 mmol/L Normal 133-145 [facility] Comment on above: Performed By: #### L 501.8820, L500.2500, L100.0500 ####[facility] [address] [place], [address] Urea nitrogen [Mass/Vol] 12 mg/dL Normal 4-19 [facility] Comment on above: Performed By: #### L 501.8820, L500.2500, L100.0500 ####[facility] [address] [place], [address] CBC-Complete Blood Cnt No [facility] 12-08-2024 Erythrocyte distribution width (RBC) [Ratio] 14.0 % Normal 11.6-14.6 [facility] Comment on above: Performed By: #### L 501.8820, L500.2500, L100.0500 ####[facility] [address] [place], [address] Hematocrit (Bld) [Volume fraction] 36.8 % Low 37-47 [facility] Comment on above: Performed By: #### L 501.8820, L500.2500, L100.0500 ####[facility] [address] [place], [address] Hemoglobin (Bld) [Mass/Vol] 11.7 g/dL Low 12.0-15.0 [facility] Comment on above: Performed By: #### L 501.8820, L500.2500, L100.0500 ####[facility] [address] [place], [address] MCH (RBC) [Entitic mass] 29.0 pg Normal 27.0-32.0 [facility] Comment on above: Performed By: #### L 501.8820, L500.2500, L100.0500 ####[facility] [address] [place], [address] MCHC (RBC) [Mass/Vol] 31.8 g/dL Low 32-36 [facility] Comment on above: Performed By: #### L 501.8820, L500.2500, L100.0500 ####[facility] [address] [place], [address] MCV (RBC) [Entitic vol] 91.1 fL Normal 81-99 [facility] Comment on above: Performed By: #### L 501.8820, L500.2500, L100.0500 ####[facility] [address] [place], [address] Platelet mean volume (Bld) [Entitic vol] 11.2 fL Normal 6.2-12.0 [facility] Comment on above: Performed By: #### L 501.8820, L500.2500, L100.0500 ####[facility] [address] [place], [address] Platelets (Bld) [#/Vol] 167 10*3/uL Normal 150-450 [facility] Comment on above: Performed By: #### L 501.8820, L500.2500, L100.0500 ####[facility] [address] [place], [address] RBC (Bld) [#/Vol] 4.04 10*6/uL Low 4.2-5.4 [facility] Comment on above: Performed By: #### L 501.8820, L500.2500, L100.0500 ####[facility] [address] [place], [address] RDW SD 46.3 fl High 35.1-43.9 [facility] Comment on above: Performed By: #### L 501.8820, L500.2500, L100.0500 ####[facility] [address] [place], [address] WBC (Bld) [#/Vol] 6.0 10*3/uL Normal 4.4-11.0 [facility] Comment on above: Performed By: #### L 501.8820, L500.2500, L100.0500 ####[facility] [address] [place], [address] Carbon dioxide, total [Moles /volume] in Central venous bloodOrdered By: Michel Haq on 12-08-2024 CO2 [Moles/Vol] 21.2 mmol/L 21.0-32.0 [facility] Chloride assayOrdered By: Gabrielle Haq on 12-08-2024 Chloride [Moles/Vol] 99 mmol/L 98-108 [facility] Erythrocyte distribution wid th ratioOrdered By: Michel Haq on 12-08-2024 Erythrocyte distribution width (RBC) [Ratio] 14.0 % 11.6-14.6 [facility] Erythrocyte distribution wid th standard deviationOrdered By: Michel Haq on 12-08-2024 Erythrocyte distribution width (RBC) [Ratio] 46.3 fl High 35.1-43.9 [facility] Glomerular filtration rate ( GFR) estimation/1.73 sq m using serum, plasma, or whole bOrdered By: Michel Haq on 12-08-2024 GFR/1.73 sq M.predicted among non-blacks MDRD (S/P/Bld) [Vol rate/Area] 79 mL/min/{1.73_m2} >60 [facility] Hematocrit Auto (Bld) [Volum e fraction]Ordered By: Michel Haq on 12-08-2024 Hematocrit (Bld) [Volume fraction] 36.8 % Low 37-47 [facility] Hemoglobin measurementOrdere d By: Michel Haq on 12-08-2024 Hemoglobin (Bld) [Mass/Vol] 11.7 g/dL Low 12.0-15.0 [facility] MCV (mean corpuscular volume ) determinationOrdered By: Michel Haq on 12-08-2024 MCV (RBC) [Entitic vol] 91.1 fL 81-99 [facility] Mean corpuscular hemoglobin (MCH) determinationOrdered By: Michel Haq on 12-08-2024 MCH (RBC) [Entitic mass] 29.0 pg 27.0-32.0 [facility] Platelet countOrdered By: Gabrielle Haq on 12-08-2024 Platelets (Bld) [#/Vol] 167 10*3/uL 150-450 [facility] Potassium measurement (mass/ volume)Ordered By: Michel Haq on 12-08-2024 Potassium (Unsp spec) [Mass/Vol] 4.3 mmol/L 3.3-5.1 [facility] RBC Auto (Bld) [#/Vol]Ordere d By: Michel Haq on 12-08-2024 RBC (Bld) [#/Vol] 4.04 10*6/uL Low 4.2-5.4 [facility] Serum creatinine measurement (mass/volume)Ordered By: Michel Haq on 12-08-2024 Creatinine [Mass/Vol] 0.86 mg/dL 0.70-1.20 [facility] Serum glucose measurement (m ass/volume)Ordered By: Michel Haq on 12-08-2024 Glucose [Mass/Vol] 334 mg/dL High 70-99 [facility] Serum or plasma calcium johnathon urement (mass/volume)Ordered By: Michel Haq on 12-08-2024 Calcium [Mass/Vol] 9.4 mg/dL 7.6-11.0 [facility] Serum or plasma urea nitroge n measurement (mass/volume)Ordered By: Michel Haq on 12-08-2024 Urea nitrogen [Mass/Vol] 12 mg/dL 4-19 [facility] Sodium levelOrdered By: Pan Haq on 12-08-2024 Sodium [Moles/Vol] 135 mmol/L 133-145 [facility] Trough vancomycin levelOrder ed By: Michel Haq on 12-08-2024 Vancomycin trough [Mass/Vol] 16.1 ug/mL High 5.0-15.0 [facility] Vancomycin, Trough Levelon 0 12-08-2024 VANCO, TROUGH 16.1 ug/mL High 5.0-15.0 [facility] Comment on above: Order Comment: 1200 Result [...] therapy recommended for serious lifethreatening infections include:- Hrpwztzrgo-Emnsfielbczd-Ciierywzy (Ventilator/Healtcare Associated)-SepsisPLEASE CONTACT PHARMACY SERVICES (#0267) FOR INTERPRETATIONOF RESULTS. Performed By: #### L 501.8820, L500.2500, L100.0500 ####[facility] [address] [place], [address] White blood cell (WBC) count Ordered By: Michel Haq on 12-08-2024 WBC (Bld) [#/Vol] 6.0 10*3/uL 4.4-11.0 [facility] Anion gap in Serum or Plasma Ordered By: Michel Haq on 12-01-2024 Anion gap [Moles/Vol] 10 mmol/L 11-26 [facility] BUN/creatinine ratioOrdered By: Michel Haq on 12-01-2024 Urea nitrogen/Creatinine [Mass ratio] 14.1 mg/mg 05-03 [facility] Basic Metabolic Profile (BMP )on 12-01-2024 BUN/CRE 14.1 RATIO Normal 05-03 [facility] Comment on above: Performed By: #### L 100.0500, L501.8820, L500.2500 ####[facility] [address] [place], [address] Calcium [Mass/Vol] 9.5 mg/dL Normal 7.6-11.0 [facility] Comment on above: Performed By: #### L 100.0500, L501.8820, L500.2500 ####[facility] [address] [place], [address] Chloride [Moles/Vol] 100 mmol/L Normal 98-108 [facility] Comment on above: Performed By: #### L 100.0500, L501.8820, L500.2500 ####[facility] [address] [place], [address] CO2 [Moles/Vol] 25.7 mmol/L Normal 21.0-32.0 [facility] Comment on above: Performed By: #### L 100.0500, L501.8820, L500.2500 ####[facility] [address] [place], [address] Creatinine [Mass/Vol] 0.65 mg/dL Low 0.70-1.20 [facility] Comment on above: Performed By: #### L 100.0500, L501.8820, L500.2500 ####[facility] [address] [place], [address] GAP 10 Normal 5-15 [facility] Comment on above: Performed By: #### L 100.0500, L501.8820, L500.2500 ####[facility] [address] [place], [address] GFR/1.73 sq M.predicted among non-blacks MDRD (S/P/Bld) [Vol rate/Area] 102 mL/min/{1.73_m2} Normal >60 [facility] Comment on above: Result Comment: mL/m in/1.73m2 CKD-EPI Creatinine Equation (2020) Performed By: #### L 100.0500, L501.8820, L500.2500 ####[facility] [address] [place], [address] Glucose [Mass/Vol] 183 mg/dL High 70-99 [facility] Comment on above: Performed By: #### L 100.0500, L501.8820, L500.2500 ####[facility] [address] [place], [address] Potassium [Moles/Vol] 4.3 mmol/L Normal 3.3-5.1 [facility] Comment on above: Performed By: #### L 100.0500, L501.8820, L500.2500 ####[facility] [address] [place], [address] Sodium [Moles/Vol] 136 mmol/L Normal 133-145 [facility] Comment on above: Performed By: #### L 100.0500, L501.8820, L500.2500 ####[facility] [address] [place], [address] Urea nitrogen [Mass/Vol] 9 mg/dL Normal 4-19 [facility] Comment on above: Performed By: #### L 100.0500, L501.8820, L500.2500 ####[facility] [address] [place], [address] CBC-Complete Blood Cnt No Di ffon 12-01-2024 Erythrocyte distribution width (RBC) [Ratio] 14.5 % Normal 11.6-14.6 [facility] Comment on above: Performed By: #### L 100.0500, L501.8820, L500.2500 ####[facility] [address] [place], [address] Hematocrit (Bld) [Volume fraction] 34.2 % Low 37-47 [facility] Comment on above: Performed By: #### L 100.0500, L501.8820, L500.2500 ####[facility] [address] [place], [address] Hemoglobin (Bld) [Mass/Vol] 11.0 g/dL Low 12.0-15.0 [facility] Comment on above: Performed By: #### L 100.0500, L501.8820, L500.2500 ####[facility] [address] [place], [address] MCH (RBC) [Entitic mass] 29.3 pg Normal 27.0-32.0 [facility] Comment on above: Performed By: #### L 100.0500, L501.8820, L500.2500 ####[facility] [address] [place], [address] MCHC (RBC) [Mass/Vol] 32.2 g/dL Normal 32-36 [facility] Comment on above: Performed By: #### L 100.0500, L501.8820, L500.2500 ####[facility] [address] [place], [address] MCV (RBC) [Entitic vol] 91.2 fL Normal 81-99 [facility] Comment on above: Performed By: #### L 100.0500, L501.8820, L500.2500 ####[facility] [address] [place], [address] Platelet mean volume (Bld) [Entitic vol] 10.4 fL Normal 6.2-12.0 [facility] Comment on above: Performed By: #### L 100.0500, L501.8820, L500.2500 ####[facility] [address] [place], [address] Platelets (Bld) [#/Vol] 221 10*3/uL Normal 150-450 [facility] Comment on above: Performed By: #### L 100.0500, L501.8820, L500.2500 ####[facility] [address] [place], [address] RBC (Bld) [#/Vol] 3.75 10*6/uL Low 4.2-5.4 [facility] Comment on above: Performed By: #### L 100.0500, L501.8820, L500.2500 ####[facility] [address] [place], [address] RDW SD 47.8 fl High 35.1-43.9 [facility] Comment on above: Performed By: #### L 100.0500, L501.8820, L500.2500 ####[facility] [address] [place], [address] WBC (Bld) [#/Vol] 7.9 10*3/uL Normal 4.4-11.0 [facility] Comment on above: Performed By: #### L 100.0500, L501.8820, L500.2500 ####[facility] [address] [place], [address] Carbon dioxide, total [Moles /volume] in Central venous bloodOrdered By: Michel Haq on 12-01-2024 CO2 [Moles/Vol] 25.7 mmol/L 21.0-32.0 [facility] Chloride assayOrdered By: Gabrielle Haq on 12-01-2024 Chloride [Moles/Vol] 100 mmol/L 98-108 [facility] Erythrocyte distribution wid th ratioOrdered By: Michel Haq on 12-01-2024 Erythrocyte distribution width (RBC) [Ratio] 14.5 % 11.6-14.6 [facility] Erythrocyte distribution wid th standard deviationOrdered By: Michel Haq on 12-01-2024 Erythrocyte distribution width (RBC) [Ratio] 47.8 fl High 35.1-43.9 [facility] Glomerular filtration rate ( GFR) estimation/1.73 sq m using serum, plasma, or whole bOrdered By: Michel Haq on 12-01-2024 GFR/1.73 sq M.predicted among non-blacks MDRD (S/P/Bld) [Vol rate/Area] 102 mL/min/{1.73_m2} >60 [facility] Hematocrit Auto (Bld) [Volum e fraction]Ordered By: Michel Haq on 12-01-2024 Hematocrit (Bld) [Volume fraction] 34.2 % Low 37-47 [facility] Hemoglobin measurementOrdere d By: Michel Haq on 12-01-2024 Hemoglobin (Bld) [Mass/Vol] 11.0 g/dL Low 12.0-15.0 [facility] MCV (mean corpuscular volume ) determinationOrdered By: Michel Haq on 12-01-2024 MCV (RBC) [Entitic vol] 91.2 fL 81-99 [facility] Mean corpuscular hemoglobin (MCH) determinationOrdered By: Michel Haq on 12-01-2024 MCH (RBC) [Entitic mass] 29.3 pg 27.0-32.0 [facility] Platelet countOrdered By: Gabrielle Haq on 12-01-2024 Platelets (Bld) [#/Vol] 221 10*3/uL 150-450 [facility] Potassium measurement (mass/ volume)Ordered By: Michel Haq on 12-01-2024 Potassium (Unsp spec) [Mass/Vol] 4.3 mmol/L 3.3-5.1 [facility] RBC Auto (Bld) [#/Vol]Ordere d By: Michel Haq on 12-01-2024 RBC (Bld) [#/Vol] 3.75 10*6/uL Low 4.2-5.4 [facility] Serum creatinine measurement (mass/volume)Ordered By: Michel Haq on 12-01-2024 Creatinine [Mass/Vol] 0.65 mg/dL Low 0.70-1.20 [facility] Serum glucose measurement (m ass/volume)Ordered By: Michel Haq on 12-01-2024 Glucose [Mass/Vol] 183 mg/dL High 70-99 [facility] Serum or plasma calcium johnathon urement (mass/volume)Ordered By: Michel Haq on 12-01-2024 Calcium [Mass/Vol] 9.5 mg/dL 7.6-11.0 [facility] Serum or plasma urea nitroge n measurement (mass/volume)Ordered By: Michel Haq on 12-01-2024 Urea nitrogen [Mass/Vol] 9 mg/dL 4-19 [facility] Sodium levelOrdered By: Pan Haq on 12-01-2024 Sodium [Moles/Vol] 136 mmol/L 133-145 [facility] Trough vancomycin levelOrder ed By: Michel Haq on 12-01-2024 Vancomycin trough [Mass/Vol] 19.9 ug/mL High 5.0-15.0 [facility] Vancomycin, Trough Levelon 0 12-01-2024 VANCO, TROUGH 19.9 ug/mL High 5.0-15.0 [facility] Comment on above: Order Comment: 1200 Result [...] therapy recommended for serious lifethreatening infections include:- Ezfragqkpy-Erhwhmecxmzv-Eyotkagfx (Ventilator/Healtcare Associated)-SepsisPLEASE CONTACT PHARMACY SERVICES (#9896) FOR INTERPRETATIONOF RESULTS. Performed By: #### L 100.0500, L501.8820, L500.2500 ####[facility] [address] [place], [place], [id number] White blood cell (WBC) count Ordered By: Michel Haq on 12-01-2024 WBC (Bld) [#/Vol] 7.9 10*3/uL 4.4-11.0 [facility] Culture, Blood (WB)on 2024 CUB No growth in 5 days. Normal [facility] Comment on above: Performed By: #### M 200.1000 ####[facility] [address] [place], [place], [id number] Chest PA and Lateralon 11-27 Chest PA and Lateral Normal [facility] Culture, Blood (WB)on 2024 CUB No growth in 5 days. Normal [facility] Comment on above: Performed By: #### M 200.1000 ####[facility] [address] [place], [address] Emergency Department Summary on 11-27-2024 Emergency Department Summary Normal [facility] Bedside Glucoseon 11-26-2024 FINGERSTICK GLU 275 mg/dL High 74-106 [facility] Comment on above: Result Comment: ELLIOTT GEMENT OF PATIENT CARE PER NURSING PROTOCOL Performed By: #### L 501.080 ####[facility] [address] [place], [address] FINGERSTICK GLU 286 mg/dL High [facility]106 [facility] Comment on above: Result Comment: ELLIOTT GEMENT OF PATIENT CARE PER NURSING PROTOCOL Performed By: #### L 501.080 ####[facility] [address] [place], [address] FINGERSTICK GLU 215 mg/dL High 74-106 [facility] Comment on above: Result Comment: ELLIOTT GEMENT OF PATIENT CARE PER NURSING PROTOCOL Performed By: #### L 501.080 ####[facility] [address] [place], [address] FINGERSTICK GLU 270 mg/dL High [address] Comment on above: Result Comment: ELLIOTT GEMENT OF PATIENT CARE PER NURSING PROTOCOL Performed By: #### L 501.080 ####[facility] [address] [place], [address] Discharge Instructionon 11-12 Discharge Instruction Normal [facility] Glucose measurement at bedsi deOrdered By: Denisse Guan on 11-26-2024 Glucose [Mass/Vol] 286 mg/dL High 74-106 [facility] Glucose [Mass/Vol] 215 mg/dL High 74-106 [facility] Absolute lymphocyte countOrd ered By: Haider Smith on 11-25-2024 Lymphocytes Auto (Unsp spec) [#/Vol] 1.76 10*3/uL 0.83-4.51 [facility] Anion gap in Serum or Plasma Ordered By: Haider Smith on 11-25-2024 Anion gap [Moles/Vol] 10 mmol/L - [facility] Automated lymphocyte count a s percentage of total leukocytesOrdered By: Haider Smith on 11-25-2024 Lymphocytes/100 WBC Auto (Unsp spec) 37.4 % [facility] BUN/creatinine ratioOrdered By: Haider Smith on 11-25-2024 Urea nitrogen/Creatinine [Mass ratio] 7.2 mg/mg Low 05-03 [facility] Basic Metabolic Profile (BMP )on 11-25-2024 BUN/CRE 7.2 RATIO Low 05-03 [facility] Comment on above: Performed By: #### L 500.2500, L100.0100 ####[facility] [address] [place], [address] Calcium [Mass/Vol] 8.9 mg/dL Normal 7.6-11.0 [facility] Comment on above: Performed By: #### L 500.2500, L100.0100 ####[facility] [address] [place], [address] Chloride [Moles/Vol] 109 mmol/L High 98-108 [facility] Comment on above: Performed By: #### L 500.2500, L100.0100 ####[facility] [address] [place], [address] CO2 [Moles/Vol] 22.0 mmol/L Normal 21.0-32.0 [facility] Comment on above: Performed By: #### L 500.2500, L100.0100 ####[facility] [address] [place], [address] Creatinine [Mass/Vol] 0.66 mg/dL Low 0.70-1.20 [facility] Comment on above: Performed By: #### L 500.2500, L100.0100 ####[facility] [address] [place], [address] ECRCL 131.01 ml/min Normal 50-250 [facility] Comment on above: Performed By: #### L 500.2500, L100.0100 ####[facility] [address] [place], [address] GAP 10 Normal 5-15 [facility] Comment on above: Performed By: #### L 500.2500, L100.0100 ####[facility] [address] [place], [address] GFR/1.73 sq M.predicted among non-blacks MDRD (S/P/Bld) [Vol rate/Area] 102 mL/min/{1.73_m2} Normal >60 [facility] Comment on above: Result Comment: mL/m in/1.73m2 CKD-EPI Creatinine Equation (2020) Performed By: #### L 500.2500, L100.0100 ####[facility] [address] [place], [address] Glucose [Mass/Vol] 125 mg/dL High 70-99 [facility] Comment on above: Performed By: #### L 500.2500, L100.0100 ####[facility] [address] [place], [address] Potassium [Moles/Vol] 3.6 mmol/L Normal 3.3-5.1 [facility] Comment on above: Performed By: #### L 500.2500, L100.0100 ####[facility] [address] [place], [address] Sodium [Moles/Vol] 141 mmol/L Normal 133-145 [facility] Comment on above: Performed By: #### L 500.2500, L100.0100 ####[facility] [address] [place], [address] Urea nitrogen [Mass/Vol] 5 mg/dL Normal 4-19 [facility] Comment on above: Performed By: #### L 500.2500, L100.0100 ####[facility] [address] [place], [address] Basophil percentageOrdered B y: Haider Smith on 11-25-2024 Basophils/100 WBC (Bld) 0.9 % 0-1 [facility] Bedside Glucoseon 11-25-2024 FINGERSTICK GLU 81 mg/dL Normal 74-106 [facility] Comment on above: Result Comment: ELLIOTT GEMENT OF PATIENT CARE PER NURSING PROTOCOL Performed By: #### L 501.080 ####[facility] [address] [place], [address] FINGERSTICK GLU 198 mg/dL High 74-106 [facility] Comment on above: Result Comment: ELLIOTT GEMENT OF PATIENT CARE PER NURSING PROTOCOL Performed By: #### L 501.080 ####[facility] [address] [place], [address] FINGERSTICK GLU 132 mg/dL High 74-106 [facility] Comment on above: Result Comment: ELLIOTT GEMENT OF PATIENT CARE PER NURSING PROTOCOL Performed By: #### L 501.080 ####[facility] [address] [place], [address] CBC W/Diff, Automatedon 05- Absolute Lymph 1.76 X10 3/uL Normal 0.83-4.51 [facility] Comment on above: Performed By: #### L 500.2500, L100.0100 ####[facility] [address] [place], [address] Absolute Neut 2.1 X10 3/uL Normal 2.0-7.7 [facility] Comment on above: Performed By: #### L 500.2500, L100.0100 ####[facility] [address] [place], [address] Basophils/100 WBC (Bld) 0.9 % Normal 0-1 [facility] Comment on above: Performed By: #### L 500.2500, L100.0100 ####[facility] [address] [place], [address] Eosinophils/100 WBC (Bld) 2.1 % Normal 0-5 [facility] Comment on above: Performed By: #### L 500.2500, L100.0100 ####[facility] [address] [place], [address] Erythrocyte distribution width (RBC) [Ratio] 14.4 % Normal 11.6-14.6 [facility] Comment on above: Performed By: #### L 500.2500, L100.0100 ####[facility] [address] [place], [address] Hematocrit (Bld) [Volume fraction] 31.8 % Low 37-47 [facility] Comment on above: Performed By: #### L 500.2500, L100.0100 ####[facility] [address] [place], [address] Hemoglobin (Bld) [Mass/Vol] 10.4 g/dL Low 12.0-15.0 [facility] Comment on above: Performed By: #### L 500.2500, L100.0100 ####[facility] [address] [place], [address] IG% 1.900 High 0.0-0.9 [facility] Comment on above: Result Comment: IG% - Immature Granulocytes (promyelocytes, myelocytes andmetamyelocytes) > 1% indicates that a LEFT SHIFT is Present. Performed By: #### L 500.2500, L100.0100 ####[facility] [address] [place], [address] Lymphocytes/100 WBC (Bld) 37.4 % Normal 19-41 [facility] Comment on above: Performed By: #### L 500.2500, L100.0100 ####[facility] [address] [place], [address] MCH (RBC) [Entitic mass] 29.0 pg Normal 27.0-32.0 [facility] Comment on above: Performed By: #### L 500.2500, L100.0100 ####[facility] [address] [place], [address] MCHC (RBC) [Mass/Vol] 32.7 g/dL Normal 32-36 [facility] Comment on above: Performed By: #### L 500.2500, L100.0100 ####[facility] [address] [place], [address] MCV (RBC) [Entitic vol] 88.6 fL Normal 81-99 [facility] Comment on above: Performed By: #### L 500.2500, L100.0100 ####[facility] [address] [place], [address] Monocytes/100 WBC (Bld) 12.1 % High 0-10 [facility] Comment on above: Performed By: #### L 500.2500, L100.0100 ####[facility] [address] [place], [address] Neutrophils/100 WBC (Bld) 45.6 % Low 47-70 [facility] Comment on above: Performed By: #### L 500.2500, L100.0100 ####[facility] [address] [place], [address] Nucleated RBC (Bld) [#/Vol] 0 10*3/uL Normal 0-5 [facility] Comment on above: Performed By: #### L 500.2500, L100.0100 ####[facility] [address] [place], [address] Platelet mean volume (Bld) [Entitic vol] 10.0 fL Normal 6.2-12.0 [facility] Comment on above: Performed By: #### L 500.2500, L100.0100 ####[facility] [address] [place], [address] Platelets (Bld) [#/Vol] 142 10*3/uL Low 150-450 [facility] Comment on above: Performed By: #### L 500.2500, L100.0100 ####[facility] [address] [place], [address] RBC (Bld) [#/Vol] 3.59 10*6/uL Low 4.2-5.4 [facility] Comment on above: Performed By: #### L 500.2500, L100.0100 ####[facility] [address] [place], [address] RDW SD 46.5 fl High 35.1-43.9 [facility] Comment on above: Performed By: #### L 500.2500, L100.0100 ####[facility] [address] [place], [address] WBC (Bld) [#/Vol] 4.7 10*3/uL Normal 4.4-11.0 [facility] Comment on above: Performed By: #### L 500.2500, L100.0100 ####[facility] [address] [place], [address] Carbon dioxide, total [Moles /volume] in Central venous bloodOrdered By: Haider Smith on 11-25-2024 CO2 [Moles/Vol] 22.0 mmol/L 21.0-32.0 [facility] Chloride assayOrdered By: Alexx Smith on 11-25-2024 Chloride [Moles/Vol] 109 mmol/L High 98-108 [facility] Eosinophil percentageOrdered By: Haider Smith on 11-25-2024 Eosinophils/100 WBC (Bld) 2.1 % 0-5 [facility] Erythrocyte distribution wid th ratioOrdered By: Haider Smith on 11-25-2024 Erythrocyte distribution width (RBC) [Ratio] 14.4 % 11.6-14.6 [facility] Erythrocyte distribution wid th standard deviationOrdered By: Haider Smith on 11-25-2024 Erythrocyte distribution width (RBC) [Ratio] 46.5 fl High 35.1-43.9 [facility] Glomerular filtration rate ( GFR) estimation/1.73 sq m using serum, plasma, or whole bOrdered By: Haider Smith on 11-25-2024 GFR/1.73 sq M.predicted among non-blacks MDRD (S/P/Bld) [Vol rate/Area] 102 mL/min/{1.73_m2} >60 [facility] Hematocrit Auto (Bld) [Volum e fraction]Ordered By: Haider Smith on 11-25-2024 Hematocrit (Bld) [Volume fraction] 31.8 % Low 37-47 [facility] Hemoglobin measurementOrdere d By: Haider Smith on 11-25-2024 Hemoglobin (Bld) [Mass/Vol] 10.4 g/dL Low 12.0-15.0 [facility] Immature granulocytes/100 WB C Auto (Bld)Ordered By: Haider Smith on 11-25-2024 Immature granulocytes/100 WBC (Bld) 1.900 % High 0.0-0.9 [facility] MCV (mean corpuscular volume ) determinationOrdered By: Haider Smith on 11-25-2024 MCV (RBC) [Entitic vol] 88.6 fL 81-99 [facility] Mean corpuscular hemoglobin (MCH) determinationOrdered By: Haider Smith on 11-25-2024 MCH (RBC) [Entitic mass] 29.0 pg 27.0-32.0 [facility] Monocyte percentageOrdered B y: Haider Smith on 11-25-2024 Monocytes/100 WBC (Bld) 12.1 % High 0-10 [facility] Neutrophil percentageOrdered By: Haider Smith on 11-25-2024 Neutrophils/100 WBC (Bld) 45.6 % Low 47-70 [facility] Platelet countOrdered By: Alexx Smith on 11-25-2024 Platelets (Bld) [#/Vol] 142 10*3/uL Low 150-450 [facility] Potassium measurement (mass/ volume)Ordered By: Haider Smith on 11-25-2024 Potassium (Unsp spec) [Mass/Vol] 3.6 mmol/L 3.3-5.1 [facility] RBC Auto (Bld) [#/Vol]Ordere d By: Haider Smith on 11-25-2024 RBC (Bld) [#/Vol] 3.59 10*6/uL Low 4.2-5.4 [facility] Serum creatinine measurement (mass/volume)Ordered By: Haider Smith on 11-25-2024 Creatinine [Mass/Vol] 0.66 mg/dL Low 0.70-1.20 [facility] Serum glucose measurement (m ass/volume)Ordered By: Haider Smith on 11-25-2024 Glucose [Mass/Vol] 125 mg/dL High 70-99 [facility] Serum or plasma calcium johnathon urement (mass/volume)Ordered By: Haider Smith on 11-25-2024 Calcium [Mass/Vol] 8.9 mg/dL 7.6-11.0 [facility] Serum or plasma urea nitroge n measurement (mass/volume)Ordered By: Haider Smith on 11-25-2024 Urea nitrogen [Mass/Vol] 5 mg/dL 4-19 [facility] Sodium levelOrdered By: Haider Smith on 11-25-2024 Sodium [Moles/Vol] 141 mmol/L 133-145 [facility] Trough vancomycin levelOrder ed By: Haider Smith on 11-25-2024 Vancomycin trough [Mass/Vol] 21.2 ug/mL High 5.0-15.0 [facility] Vancomycin, Trough Levelon 0 11-25-2024 VANCO, TROUGH 21.2 ug/mL High 5.0-15.0 [facility] Comment on above: Order Comment: Comme nts: Trough to be drawn 30 mins prior to scheduled [id number] Result Comment: Be mmended goal trough ranges [...] therapy recommended for serious lifethreatening infections include:- Bfydocxlkz-Inxmqmkgguxx-Ysttzkcia (Ventilator/Healtcare Associated)-SepsisPLEASE CONTACT PHARMACY SERVICES (#1512) FOR INTERPRETATIONOF RESULTS. Performed By: #### L 501.8820 ####[facility] [address] [place], [address] White blood cell (WBC) count Ordered By: Haider Smith on 11-25-2024 WBC (Bld) [#/Vol] 4.7 10*3/uL 4.4-11.0 [facility] Basic Metabolic Profile (BMP )on 11-24-2024 BUN/CRE 9.7 RATIO Low 10-20 [facility] Comment on above: Performed By: #### L 100.0100, L500.2500 ####[facility] [address] [place], [address] Calcium [Mass/Vol] 8.9 mg/dL Normal 7.6-11.0 [facility] Comment on above: Performed By: #### L 100.0100, L500.2500 ####[facility] [address] [place], [address] Chloride [Moles/Vol] 107 mmol/L Normal 98-108 [facility] Comment on above: Performed By: #### L 100.0100, L500.2500 ####[facility] [address] [place], [address] CO2 [Moles/Vol] 22.7 mmol/L Normal 21.0-32.0 [facility] Comment on above: Performed By: #### L 100.0100, L500.2500 ####[facility] [address] [place], [address] Creatinine [Mass/Vol] 0.62 mg/dL Low 0.70-1.20 [facility] Comment on above: Performed By: #### L 100.0100, L500.2500 ####[facility] [address] [place], [address] ECRCL 138.90 ml/min Normal 50-250 [facility] Comment on above: Performed By: #### L 100.0100, L500.2500 ####[facility] [address] [place], [address] GAP 10 Normal 5-15 [facility] Comment on above: Performed By: #### L 100.0100, L500.2500 ####[facility] [address] [place], [address] GFR/1.73 sq M.predicted among non-blacks MDRD (S/P/Bld) [Vol rate/Area] 103 mL/min/{1.73_m2} Normal >60 [facility] Comment on above: Result Comment: mL/m in/1.73m2 CKD-EPI Creatinine Equation (2020) Performed By: #### L 100.0100, L500.2500 ####[facility] [address] [place], [address] Glucose [Mass/Vol] 85 mg/dL Normal 70-99 [facility] Comment on above: Performed By: #### L 100.0100, L500.2500 ####[facility] [address] [place], [address] Potassium [Moles/Vol] 3.9 mmol/L Normal 3.3-5.1 [facility] Comment on above: Performed By: #### L 100.0100, L500.2500 ####[facility] [address] [place], [address] Sodium [Moles/Vol] 140 mmol/L Normal 133-145 [facility] Comment on above: Performed By: #### L 100.0100, L500.2500 ####[facility] [address] [place], [address] Urea nitrogen [Mass/Vol] 6 mg/dL Normal 4-19 [facility] Comment on above: Performed By: #### L 100.0100, L500.2500 ####[facility] [address] [place], [address] Bedside Glucoseon 11-24-2024 FINGERSTICK GLU 99 mg/dL Normal 74-106 [facility] Comment on above: Result Comment: ELLIOTT GEMENT OF PATIENT CARE PER NURSING PROTOCOL Performed By: #### L 501.080 ####[facility] [address] [place], [address] FINGERSTICK GLU 94 mg/dL Normal 74-106 [facility] Comment on above: Result Comment: ELLIOTT GEMENT OF PATIENT CARE PER NURSING PROTOCOL Performed By: #### L 501.080 ####[facility] [address] [place], [address] FINGERSTICK GLU 201 mg/dL High 74-106 [facility] Comment on above: Result Comment: ELLIOTT GEMENT OF PATIENT CARE PER NURSING PROTOCOL Performed By: #### L 501.080 ####[facility] [address] [place], [address] FINGERSTICK GLU 91 mg/dL Normal 74-106 [facility] Comment on above: Result Comment: ELLIOTT GEMENT OF PATIENT CARE PER NURSING PROTOCOL Performed By: #### L 501.080 ####[facility] [address] [place], [address] CBC W/Diff, Automatedon 05-07 17-2024 Absolute Lymph 1.67 X10 3/uL Normal 0.83-4.51 [facility] Comment on above: Performed By: #### L 100.0100, L500.2500 ####[facility] [address] [place], [address] Absolute Neut 2.0 X10 3/uL Normal 2.0-7.7 [facility] Comment on above: Performed By: #### L 100.0100, L500.2500 ####[facility] [address] [place], [address] Basophils/100 WBC (Bld) 0.9 % Normal 0-1 [facility] Comment on above: Performed By: #### L 100.0100, L500.2500 ####[facility] [address] [place], [address] Eosinophils/100 WBC (Bld) 3.0 % Normal 0-5 [facility] Comment on above: Performed By: #### L 100.0100, L500.2500 ####[facility] [address] [place], [address] Erythrocyte distribution width (RBC) [Ratio] 14.4 % Normal 11.6-14.6 [facility] Comment on above: Performed By: #### L 100.0100, L500.2500 ####[facility] [address] [place], [address] Hematocrit (Bld) [Volume fraction] 32.4 % Low 37-47 [facility] Comment on above: Performed By: #### L 100.0100, L500.2500 ####[facility] [address] [place], [address] Hemoglobin (Bld) [Mass/Vol] 10.4 g/dL Low 12.0-15.0 [facility] Comment on above: Performed By: #### L 100.0100, L500.2500 ####[facility] [address] [place], [address] IG% 0.500 Normal 0.0-0.9 [facility] Comment on above: Result Comment: IG% - Immature Granulocytes (promyelocytes, myelocytes andmetamyelocytes) > 1% indicates that a LEFT SHIFT is Present. Performed By: #### L 100.0100, L500.2500 ####[facility] [address] [place], [address] Lymphocytes/100 WBC (Bld) 38.3 % Normal 19-41 [facility] Comment on above: Performed By: #### L 100.0100, L500.2500 ####[facility] [address] [place], [address] MCH (RBC) [Entitic mass] 29.0 pg Normal 27.0-32.0 [facility] Comment on above: Performed By: #### L 100.0100, L500.2500 ####[facility] [address] [place], [address] MCHC (RBC) [Mass/Vol] 32.1 g/dL Normal 32-36 [facility] Comment on above: Performed By: #### L 100.0100, L500.2500 ####[facility] [address] [place], [address] MCV (RBC) [Entitic vol] 90.3 fL Normal 81-99 [facility] Comment on above: Performed By: #### L 100.0100, L500.2500 ####[facility] [address] [place], [address] Monocytes/100 WBC (Bld) 11.0 % High 0-10 [facility] Comment on above: Performed By: #### L 100.0100, L500.2500 ####[facility] [address] [place], [address] Neutrophils/100 WBC (Bld) 46.3 % Low 47-70 [facility] Comment on above: Performed By: #### L 100.0100, L500.2500 ####[facility] [address] [place], [address] Nucleated RBC (Bld) [#/Vol] 0 10*3/uL Normal 0-5 [facility] Comment on above: Performed By: #### L 100.0100, L500.2500 ####[facility] [address] [place], [address] Platelet mean volume (Bld) [Entitic vol] 10.7 fL Normal 6.2-12.0 [facility] Comment on above: Performed By: #### L 100.0100, L500.2500 ####[facility] [address] [place], [address] Platelets (Bld) [#/Vol] 123 10*3/uL Low 150-450 [facility] Comment on above: Performed By: #### L 100.0100, L500.2500 ####[facility] [address] [place], [address] RBC (Bld) [#/Vol] 3.59 10*6/uL Low 4.2-5.4 [facility] Comment on above: Performed By: #### L 100.0100, L500.2500 ####[facility] [address] [place], [address] RDW SD 48.1 fl High 35.1-43.9 [facility] Comment on above: Performed By: #### L 100.0100, L500.2500 ####[facility] [address] [place], [address] WBC (Bld) [#/Vol] 4.4 10*3/uL Normal 4.4-11.0 [facility] Comment on above: Performed By: #### L 100.0100, L500.2500 ####[facility] [address] [place], [address] BC GPC IDon 11-23-2024 BC GPC ID Normal [facility] Comment on above: Performed By: #### L 503.6005, L100.0100, L300.3900, L300.4310, M200.1000, M100.636, L500.4050 ####[facility] [address] [place], [address] Basic Metabolic Profile (BMP )on 11-23-2024 BUN/CRE 12.5 RATIO Normal 10-20 [facility] Comment on above: Performed By: #### L 500.2500, L100.0100 ####[facility] [address] [place], [address] Calcium [Mass/Vol] 8.9 mg/dL Normal 7.6-11.0 [facility] Comment on above: Performed By: #### L 500.2500, L100.0100 ####[facility] [address] [place], [address] Chloride [Moles/Vol] 108 mmol/L Normal 98-108 [facility] Comment on above: Performed By: #### L 500.2500, L100.0100 ####[facility] [address] [place], [address] CO2 [Moles/Vol] 23.3 mmol/L Normal 21.0-32.0 [facility] Comment on above: Performed By: #### L 500.2500, L100.0100 ####[facility] [address] [place], [address] Creatinine [Mass/Vol] 0.63 mg/dL Low 0.70-1.20 [facility] Comment on above: Performed By: #### L 500.2500, L100.0100 ####[facility] [address] [place], [address] ECRCL 135.59 ml/min Normal 50-250 [facility] Comment on above: Performed By: #### L 500.2500, L100.0100 ####[facility] [address] [place], [address] GAP 8 Normal 5-15 [facility] Comment on above: Performed By: #### L 500.2500, L100.0100 ####[facility] [address] [place], [address] GFR/1.73 sq M.predicted among non-blacks MDRD (S/P/Bld) [Vol rate/Area] 103 mL/min/{1.73_m2} Normal >60 [facility] Comment on above: Result Comment: mL/m in/1.73m2 CKD-EPI Creatinine Equation (2020) Performed By: #### L 500.2500, L100.0100 ####[facility] [address] [place], [address] Glucose [Mass/Vol] 79 mg/dL Normal 70-99 [facility] Comment on above: Performed By: #### L 500.2500, L100.0100 ####[facility] [address] [place], [address] Potassium [Moles/Vol] 3.8 mmol/L Normal 3.3-5.1 [facility] Comment on above: Performed By: #### L 500.2500, L100.0100 ####[facility] [address] [place], [address] Sodium [Moles/Vol] 140 mmol/L Normal 133-145 [facility] Comment on above: Performed By: #### L 500.2500, L100.0100 ####[facility] [address] [place], [address] Urea nitrogen [Mass/Vol] 8 mg/dL Normal 4-19 [facility] Comment on above: Performed By: #### L 500.2500, L100.0100 ####[facility] [address] [place], [address] Bedside Glucoseon 11-23-2024 FINGERSTICK GLU 82 mg/dL Normal 74-106 [facility] Comment on above: Result Comment: ELLIOTT GEMENT OF PATIENT CARE PER NURSING PROTOCOL Performed By: #### L 501.080 ####[facility] [address] [place], [address] FINGERSTICK GLU 93 mg/dL Normal 74-106 [facility] Comment on above: Result Comment: ELLIOTT GEMENT OF PATIENT CARE PER NURSING PROTOCOL Performed By: #### L 501.080 ####[facility] [address] [place], [address] FINGERSTICK GLU 92 mg/dL Normal 74-106 [facility] Comment on above: Result Comment: ELLIOTT GEMENT OF PATIENT CARE PER NURSING PROTOCOL Performed By: #### L 501.080 ####[facility] [address] [place], [address] FINGERSTICK GLU 83 mg/dL Normal 74-106 [facility] Comment on above: Result Comment: ELLIOTT GEMENT OF PATIENT CARE PER NURSING PROTOCOL Performed By: #### L 501.080 ####[facility] [address] [place], [address] Blood cultureOrdered By: Justino Haq on 11-23-2024 Bacteria identified Cx Nom (Bld) No growth in 5 days. [facility] CBC W/Diff, Automatedon 11-12 Absolute Lymph 1.32 X10 3/uL Normal 0.83-4.51 [facility] Comment on above: Performed By: #### L 500.2500, L100.0100 ####[facility] [address] [place], [address] Absolute Neut 3.8 X10 3/uL Normal 2.0-7.7 [facility] Comment on above: Performed By: #### L 500.2500, L100.0100 ####[facility] [address] [place], [address] Basophils/100 WBC (Bld) 0.5 % Normal 0-1 [facility] Comment on above: Performed By: #### L 500.2500, L100.0100 ####[facility] [address] [place], [address] Eosinophils/100 WBC (Bld) 2.4 % Normal 0-5 [facility] Comment on above: Performed By: #### L 500.2500, L100.0100 ####[facility] [address] [place], [address] Erythrocyte distribution width (RBC) [Ratio] 14.6 % Normal 11.6-14.6 [facility] Comment on above: Performed By: #### L 500.2500, L100.0100 ####[facility] [address] [place], [address] Hematocrit (Bld) [Volume fraction] 32.7 % Low 37-47 [facility] Comment on above: Performed By: #### L 500.2500, L100.0100 ####[facility] [address] [place], [address] Hemoglobin (Bld) [Mass/Vol] 10.4 g/dL Low 12.0-15.0 [facility] Comment on above: Performed By: #### L 500.2500, L100.0100 ####[facility] [address] [place], [address] IG% 0.300 Normal 0.0-0.9 [facility] Comment on above: Result Comment: IG% - Immature Granulocytes (promyelocytes, myelocytes andmetamyelocytes) > 1% indicates that a LEFT SHIFT is Present. Performed By: #### L 500.2500, L100.0100 ####[facility] [address] [place], [address] Lymphocytes/100 WBC (Bld) 22.9 % Normal 19-41 [facility] Comment on above: Performed By: #### L 500.2500, L100.0100 ####[facility] [address] [place], [address] MCH (RBC) [Entitic mass] 29.0 pg Normal 27.0-32.0 [facility] Comment on above: Performed By: #### L 500.2500, L100.0100 ####[facility] [address] [place], [address] MCHC (RBC) [Mass/Vol] 31.8 g/dL Low 32-36 [facility] Comment on above: Performed By: #### L 500.2500, L100.0100 ####[facility] [address] [place], [address] MCV (RBC) [Entitic vol] 91.1 fL Normal 81-99 [facility] Comment on above: Performed By: #### L 500.2500, L100.0100 ####[facility] [address] [place], [address] Monocytes/100 WBC (Bld) 8.8 % Normal 0-10 [facility] Comment on above: Performed By: #### L 500.2500, L100.0100 ####[facility] [address] [place], [address] Neutrophils/100 WBC (Bld) 65.1 % Normal 47-70 [facility] Comment on above: Performed By: #### L 500.2500, L100.0100 ####[facility] [address] [place], [address] Nucleated RBC (Bld) [#/Vol] 0 10*3/uL Normal 0-5 [facility] Comment on above: Performed By: #### L 500.2500, L100.0100 ####[facility] [address] [place], [address] Platelet mean volume (Bld) [Entitic vol] 10.3 fL Normal 6.2-12.0 [facility] Comment on above: Performed By: #### L 500.2500, L100.0100 ####[facility] [address] [place], [address] Platelets (Bld) [#/Vol] 105 10*3/uL Low 150-450 [facility] Comment on above: Performed By: #### L 500.2500, L100.0100 ####[facility] [address] [place], [address] RBC (Bld) [#/Vol] 3.59 10*6/uL Low 4.2-5.4 [facility] Comment on above: Performed By: #### L 500.2500, L100.0100 ####[facility] [address] [place], [address] RDW SD 48.3 fl High 35.1-43.9 [facility] Comment on above: Performed By: #### L 500.2500, L100.0100 ####[facility] [address] [place], [address] WBC (Bld) [#/Vol] 5.8 10*3/uL Normal 4.4-11.0 [facility] Comment on above: Performed By: #### L 500.2500, L100.0100 ####[facility] [address] [place], [address] Consultation - Infectious Dx on 11-23-2024 Consultation - Infectious Dx Normal [facility] Culture, Blood (WB)on 2024 CUB Normal [facility] Comment on above: Performed By: #### L 503.6005, L100.0100, L300.3900, L300.4310, M200.1000, M100.636, L500.4050 ####[facility] [address] [place], [place], [address] Echo Transesophageal (KANDY)on 11-23-2024 Echo Transesophageal (KANDY) Normal [facility] Transesophageal echocardiogr am reportOrdered By: Jean Trujillo on 11-23-2024 Study report [facility] Work Phone: Vancomycin, Trough Levelon 0 11-23-2024 VANCO, TROUGH 18.3 ug/mL High 5.0-15.0 [facility] Comment on above: Order Comment: Comme nts: Trough to be drawn 30 mins prior to scheduled [id number] Result Comment: Be mmended goal trough ranges [...] therapy recommended for serious lifethreatening infections include:- Wthpewrcvu-Xmgkstbtyhdf-Sdepqyssv (Ventilator/Healtcare Associated)-SepsisPLEASE CONTACT PHARMACY SERVICES (#1260) FOR INTERPRETATIONOF RESULTS. Performed By: #### L 501.8820 ####[facility] [address] [place], [address] Basic Metabolic Profile (BMP )on 11-22-2024 BUN/CRE 13.0 RATIO Normal 05-03 [facility] Comment on above: Performed By: #### L 100.0100, L500.2500 ####[facility] [address] [place], [address] Calcium [Mass/Vol] 7.8 mg/dL Normal 7.6-11.0 [facility] Comment on above: Performed By: #### L 100.0100, L500.2500 ####[facility] [address] [place], [address] Chloride [Moles/Vol] 108 mmol/L Normal 98-108 [facility] Comment on above: Performed By: #### L 100.0100, L500.2500 ####[facility] [address] [place], [address] CO2 [Moles/Vol] 21.5 mmol/L Normal 21.0-32.0 [facility] Comment on above: Performed By: #### L 100.0100, L500.2500 ####[facility] [address] [place], [address] Creatinine [Mass/Vol] 0.70 mg/dL Normal 0.70-1.20 [facility] Comment on above: Performed By: #### L 100.0100, L500.2500 ####[facility] [address] [place], [address] ECRCL 121.42 ml/min Normal 50-250 [facility] Comment on above: Performed By: #### L 100.0100, L500.2500 ####[facility] [address] [place], [address] GAP 8 Normal 5-15 [facility] Comment on above: Performed By: #### L 100.0100, L500.2500 ####[facility] [address] [place], [address] GFR/1.73 sq M.predicted among non-blacks MDRD (S/P/Bld) [Vol rate/Area] 100 mL/min/{1.73_m2} Normal >60 [facility] Comment on above: Result Comment: mL/m in/1.73m2 CKD-EPI Creatinine Equation (2020) Performed By: #### L 100.0100, L500.2500 ####[facility] [address] [place], [address] Glucose [Mass/Vol] 184 mg/dL High 70-99 [facility] Comment on above: Performed By: #### L 100.0100, L500.2500 ####[facility] [address] [place], [address] Potassium [Moles/Vol] 3.6 mmol/L Normal 3.3-5.1 [facility] Comment on above: Performed By: #### L 100.0100, L500.2500 ####[facility] [address] [place], [address] Sodium [Moles/Vol] 138 mmol/L Normal 133-145 [facility] Comment on above: Performed By: #### L 100.0100, L500.2500 ####[facility] [address] [place], [address] Urea nitrogen [Mass/Vol] 9 mg/dL Normal 4-19 [facility] Comment on above: Performed By: #### L 100.0100, L500.2500 ####[facility] [address] [place], [address] Bedside Glucoseon 11-22-2024 FINGERSTICK GLU 85 mg/dL Normal 74-106 [facility] Comment on above: Result Comment: ELLIOTT GEMENT OF PATIENT CARE PER NURSING PROTOCOL Performed By: #### L 501.080 ####[facility] [address] [place], [address] FINGERSTICK GLU 179 mg/dL High 74-106 [facility] Comment on above: Result Comment: ELLIOTT GEMENT OF PATIENT CARE PER NURSING PROTOCOL Performed By: #### L 501.080 ####[facility] [address] [place], [address] FINGERSTICK GLU 198 mg/dL High 74-106 [facility] Comment on above: Result Comment: ELLIOTT GEMENT OF PATIENT CARE PER NURSING PROTOCOL Performed By: #### L 501.080 ####[facility] [address] [place], [address] FINGERSTICK GLU 177 mg/dL High 74-106 [facility] Comment on above: Result Comment: ELLIOTT GEMENT OF PATIENT CARE PER NURSING PROTOCOL Performed By: #### L 501.080 ####[facility] [address] [place], [address] CBC W/Diff, Automatedon 05- Absolute Lymph 1.35 X10 3/uL Normal 0.83-4.51 [facility] Comment on above: Performed By: #### L 100.0100, L500.2500 ####[facility] [address] [place], [address] Absolute Neut 4.2 X10 3/uL Normal 2.0-7.7 [facility] Comment on above: Performed By: #### L 100.0100, L500.2500 ####[facility] [address] [place], [address] Basophils/100 WBC (Bld) 0.5 % Normal 0-1 [facility] Comment on above: Performed By: #### L 100.0100, L500.2500 ####[facility] [address] [place], [address] Eosinophils/100 WBC (Bld) 0.6 % Normal 0-5 [facility] Comment on above: Performed By: #### L 100.0100, L500.2500 ####[facility] [address] [place], [address] Erythrocyte distribution width (RBC) [Ratio] 14.3 % Normal 11.6-14.6 [facility] Comment on above: Performed By: #### L 100.0100, L500.2500 ####[facility] [address] [place], [address] Hematocrit (Bld) [Volume fraction] 32.4 % Low 37-47 [facility] Comment on above: Performed By: #### L 100.0100, L500.2500 ####[facility] [address] [place], [address] Hemoglobin (Bld) [Mass/Vol] 10.6 g/dL Low 12.0-15.0 [facility] Comment on above: Performed By: #### L 100.0100, L500.2500 ####[facility] [address] [place], [address] IG% 0.800 Normal 0.0-0.9 [facility] Comment on above: Result Comment: IG% - Immature Granulocytes (promyelocytes, myelocytes andmetamyelocytes) > 1% indicates that a LEFT SHIFT is Present. Performed By: #### L 100.0100, L500.2500 ####[facility] [address] [place], [address] Lymphocytes/100 WBC (Bld) 21.6 % Normal 19-41 [facility] Comment on above: Performed By: #### L 100.0100, L500.2500 ####[facility] [address] [place], [address] MCH (RBC) [Entitic mass] 29.7 pg Normal 27.0-32.0 [facility] Comment on above: Performed By: #### L 100.0100, L500.2500 ####[facility] [address] [place], [address] MCHC (RBC) [Mass/Vol] 32.7 g/dL Normal 32-36 [facility] Comment on above: Performed By: #### L 100.0100, L500.2500 ####[facility] [address] [place], [address] MCV (RBC) [Entitic vol] 90.8 fL Normal 81-99 [facility] Comment on above: Performed By: #### L 100.0100, L500.2500 ####[facility] [address] [place], [address] Monocytes/100 WBC (Bld) 9.1 % Normal 0-10 [facility] Comment on above: Performed By: #### L 100.0100, L500.2500 ####[facility] [address] [place], [address] Neutrophils/100 WBC (Bld) 67.4 % Normal 47-70 [facility] Comment on above: Performed By: #### L 100.0100, L500.2500 ####[facility] [address] [place], [address] Nucleated RBC (Bld) [#/Vol] 0 10*3/uL Normal 0-5 [facility] Comment on above: Performed By: #### L 100.0100, L500.2500 ####[facility] [address] [place], [address] Platelet mean volume (Bld) [Entitic vol] 10.0 fL Normal 6.2-12.0 [facility] Comment on above: Performed By: #### L 100.0100, L500.2500 ####[facility] [address] [place], [address] Platelets (Bld) [#/Vol] 102 10*3/uL Low 150-450 [facility] Comment on above: Performed By: #### L 100.0100, L500.2500 ####[facility] [address] [place], [address] RBC (Bld) [#/Vol] 3.57 10*6/uL Low 4.2-5.4 [facility] Comment on above: Performed By: #### L 100.0100, L500.2500 ####[facility] [address] [place], [address] RDW SD 48.0 fl High 35.1-43.9 [facility] Comment on above: Performed By: #### L 100.0100, L500.2500 ####[facility] [address] [place], [address] WBC (Bld) [#/Vol] 6.2 10*3/uL Normal 4.4-11.0 [facility] Comment on above: Performed By: #### L 100.0100, L500.2500 ####[facility] [address] [place], [address] Consultation - Cardiologyon 11-22-2024 Consultation - Cardiology Normal [facility] Vancomycin, Trough Levelon 0 11-22-2024 VANCO, TROUGH 10.4 ug/mL Normal 5.0-15.0 [facility] Comment on above: Order Comment: Comme nts: [...] therapy recommended for serious lifethreatening infections include:- Gaawpbcyhx-Inxyjrfwgmhn-Fmccjlirs (Ventilator/Healtcare Associated)-SepsisPLEASE CONTACT PHARMACY SERVICES (#4022) FOR INTERPRETATIONOF RESULTS. Performed By: #### L 177.0213 ####[facility] [address] [place], [address] Basic Metabolic Profile (BMP )on 11-21-2024 BUN/CRE 15.4 RATIO Normal -20 [facility] Comment on above: Performed By: #### L 101.9900, L501.6710, L509.7001, L100.0100, L500.2500 ####[facility] [address] [place], [address] Calcium [Mass/Vol] 8.4 mg/dL Normal 7.6-11.0 [facility] Comment on above: Performed By: #### L 101.9900, L501.6710, L509.7001, L100.0100, L500.2500 ####[facility] [address] [place], [address] Chloride [Moles/Vol] 104 mmol/L Normal 98-108 [facility] Comment on above: Performed By: #### L 101.9900, L501.6710, L509.7001, L100.0100, L500.2500 ####[facility] [address] [place], [address] CO2 [Moles/Vol] 22.5 mmol/L Normal 21.0-32.0 [facility] Comment on above: Performed By: #### L 101.9900, L501.6710, L509.7001, L100.0100, L500.2500 ####[facility] [address] [place], [address] Creatinine [Mass/Vol] 0.87 mg/dL Normal 0.70-1.20 [facility] Comment on above: Performed By: #### L 101.9900, L501.6710, L509.7001, L100.0100, L500.2500 ####[facility] [address] [place], [address] ECRCL 99.31 ml/min Normal 50-250 [facility] Comment on above: Performed By: #### L 101.9900, L501.6710, L509.7001, L100.0100, L500.2500 ####[facility] [address] [place], [address] GAP 10 Normal 5-15 [facility] Comment on above: Performed By: #### L 101.9900, L501.6710, L509.7001, L100.0100, L500.2500 ####[facility] [address] [place], [address] GFR/1.73 sq M.predicted among non-blacks MDRD (S/P/Bld) [Vol rate/Area] 78 mL/min/{1.73_m2} Normal >60 [facility] Comment on above: Result Comment: mL/m in/1.73m2 CKD-EPI Creatinine Equation (2020) Performed By: #### L 101.9900, L501.6710, L509.7001, L100.0100, L500.2500 ####[facility] [address] [place], [address] Glucose [Mass/Vol] 266 mg/dL High 70-99 [facility] Comment on above: Performed By: #### L 101.9900, L501.6710, L509.7001, L100.0100, L500.2500 ####[facility] [address] [place], [address] Potassium [Moles/Vol] 4.0 mmol/L Normal 3.3-5.1 [facility] Comment on above: Performed By: #### L 101.9900, L501.6710, L509.7001, L100.0100, L500.2500 ####[facility] [address] [place], [address] Sodium [Moles/Vol] 136 mmol/L Normal 133-145 [facility] Comment on above: Performed By: #### L 101.9900, L501.6710, L509.7001, L100.0100, L500.2500 ####[facility] [address] [place], [address] Urea nitrogen [Mass/Vol] 13 mg/dL Normal 4-19 [facility] Comment on above: Performed By: #### L 101.9900, L501.6710, L509.7001, L100.0100, L500.2500 ####[facility] [address] [place], [address] Bedside Glucoseon 11-21-2024 FINGERSTICK GLU 252 mg/dL High 74-106 [facility] Comment on above: Result Comment: ELLIOTT GEMENT OF PATIENT CARE PER NURSING PROTOCOL Performed By: #### L 501.080 ####[facility] [address] [place], [address] FINGERSTICK GLU 314 mg/dL High 74-106 [facility] Comment on above: Result Comment: Dr Jose ledesma FollowedMANAGEMENT OF PATIENT CARE PER NURSING PROTOCOL Performed By: #### L 501.080 ####[facility] [address] [place], [address] FINGERSTICK GLU 300 mg/dL High -106 [facility] Comment on above: Result Comment: Dr Jose ledesma FollowedMANAGEMENT OF PATIENT CARE PER NURSING PROTOCOL Performed By: #### L 501.080 ####[facility] [address] [place], [address] FINGERSTICK GLU 248 mg/dL High 74-106 [facility] Comment on above: Result Comment: ELLIOTT GEMENT OF PATIENT CARE PER NURSING PROTOCOL Performed By: #### L 501.080 ####[facility] [address] [place], [address] Blood cultureOrdered By: Vidhya Smith on 11-21-2024 Bacteria identified Cx Nom (Bld) No growth in 5 days. [facility] Bacteria identified Cx Nom (Bld) No growth in 5 days. [facility] CBC W/Diff, Automatedon 05-1 0-2025 Absolute Lymph 0.84 X10 3/uL Normal 0.83-4.51 [facility] Comment on above: Performed By: #### L 101.9900, L501.6710, L509.7001, L100.0100, L500.2500 ####[facility] [address] [place], [address] Absolute Neut 9.7 X10 3/uL High 2.0-7.7 [facility] Comment on above: Performed By: #### L 101.9900, L501.6710, L509.7001, L100.0100, L500.2500 ####[facility] [address] [place], [address] Basophils/100 WBC (Bld) 0.4 % Normal 0-1 [facility] Comment on above: Performed By: #### L 101.9900, L501.6710, L509.7001, L100.0100, L500.2500 ####[facility] [address] [place], [address] Eosinophils/100 WBC (Bld) 0.1 % Normal 0-5 [facility] Comment on above: Performed By: #### L 101.9900, L501.6710, L509.7001, L100.0100, L500.2500 ####[facility] [address] [place], [address] Erythrocyte distribution width (RBC) [Ratio] 14.4 % Normal 11.6-14.6 [facility] Comment on above: Performed By: #### L 101.9900, L501.6710, L509.7001, L100.0100, L500.2500 ####[facility] [address] [place], [address] Hematocrit (Bld) [Volume fraction] 34.4 % Low 37-47 [facility] Comment on above: Performed By: #### L 101.9900, L501.6710, L509.7001, L100.0100, L500.2500 ####[facility] [address] [place], [address] Hemoglobin (Bld) [Mass/Vol] 11.2 g/dL Low 12.0-15.0 [facility] Comment on above: Performed By: #### L 101.9900, L501.6710, L509.7001, L100.0100, L500.2500 ####[facility] [address] [place], [address] IG% 0.700 Normal 0.0-0.9 [facility] Comment on above: Result Comment: IG% - Immature Granulocytes (promyelocytes, myelocytes andmetamyelocytes) > 1% indicates that a LEFT SHIFT is Present. Performed By: #### L 101.9900, L501.6710, L509.7001, L100.0100, L500.2500 ####[facility] [address] [place], [address] Lymphocytes/100 WBC (Bld) 7.5 % Low 19-41 [facility] Comment on above: Performed By: #### L 101.9900, L501.6710, L509.7001, L100.0100, L500.2500 ####[facility] [address] [place], [address] MCH (RBC) [Entitic mass] 29.5 pg Normal 27.0-32.0 [facility] Comment on above: Performed By: #### L 101.9900, L501.6710, L509.7001, L100.0100, L500.2500 ####[facility] [address] [place], [address] MCHC (RBC) [Mass/Vol] 32.6 g/dL Normal 32-36 [facility] Comment on above: Performed By: #### L 101.9900, L501.6710, L509.7001, L100.0100, L500.2500 ####[facility] [address] [place], [address] MCV (RBC) [Entitic vol] 90.5 fL Normal 81-99 [facility] Comment on above: Performed By: #### L 101.9900, L501.6710, L509.7001, L100.0100, L500.2500 ####[facility] [address] [place], [address] Monocytes/100 WBC (Bld) 4.7 % Normal 0-10 [facility] Comment on above: Performed By: #### L 101.9900, L501.6710, L509.7001, L100.0100, L500.2500 ####[facility] [address] [place], [address] Neutrophils/100 WBC (Bld) 86.6 % High 47-70 [facility] Comment on above: Performed By: #### L 101.9900, L501.6710, L509.7001, L100.0100, L500.2500 ####[facility] [address] [place], [address] Nucleated RBC (Bld) [#/Vol] 0 10*3/uL Normal 0-5 [facility] Comment on above: Performed By: #### L 101.9900, L501.6710, L509.7001, L100.0100, L500.2500 ####[facility] [address] [place], [address] Platelet mean volume (Bld) [Entitic vol] 10.6 fL Normal 6.2-12.0 [facility] Comment on above: Performed By: #### L 101.9900, L501.6710, L509.7001, L100.0100, L500.2500 ####[facility] [address] [place], [address] Platelets (Bld) [#/Vol] 105 10*3/uL Low 150-450 [facility] Comment on above: Performed By: #### L 101.9900, L501.6710, L509.7001, L100.0100, L500.2500 ####[facility] [address] [place], [address] RBC (Bld) [#/Vol] 3.80 10*6/uL Low 4.2-5.4 [facility] Comment on above: Performed By: #### L 101.9900, L501.6710, L509.7001, L100.0100, L500.2500 ####[facility] [address] [place], [address] RDW SD 47.7 fl High 35.1-43.9 [facility] Comment on above: Performed By: #### L 101.9900, L501.6710, L509.7001, L100.0100, L500.2500 ####[facility] [address] [place], [address] WBC (Bld) [#/Vol] 11.2 10*3/uL High 4.4-11.0 [facility] Comment on above: Performed By: #### L 101.9900, L501.6710, L509.7001, L100.0100, L500.2500 ####[facility] [address] [place], [address] CRPon 11-21-2024 C-REACTIVE PROT 115.00 mg/L High 0.0-3.0 [facility] Comment on above: Performed By: #### L 101.9900, L501.6710, L509.7001, L100.0100, L500.2500 ####[facility] [address] [place], [address] Echocardiogram study reportO rdered By: Radha Dumont on 11-21-2024 Study report [facility] Work Phone: Erythrocyte Sed Rateon 11-21 SED RATE 26 mm/hr Normal 0-30 [facility] Comment on above: Performed By: #### L 101.9900, L501.6710, L509.7001, L100.0100, L500.2500 ####[facility] [address] [place], [place], [id number] Erythrocyte sedimentation ra teOrdered By: Mariah Brewer on 11-21-2024 ESR (Bld) [Velocity] 26 mm/h 0-30 [facility] L509.7001on 11-21-2024 Procalcitonin 8.24 ng/mL High <=0.10 [facility] Comment on above: Result Comment: Inte rpretation:<0.10-0.25 [...] #### L 101.9900, L501.6710, L509.7001, L100.0100, L500.2500 ####[facility] [address] [place], [place], [id number] Lactic Acidon 11-21-2024 Lactate [Moles/Vol] 1.5 mmol/L Normal 0.0-2.0 [facility] Comment on above: Order Comment: Y Performed By: #### L 503.6005 ####[facility] [address] [place], [place], [id number] Procalcitonin [Mass/volume] in Serum or Plasma by ImmunoassayOrdered By: Mariah Brewer on 11-21-2024 Procalcitonin IA [Mass/Vol] 8.24 ng/mL High <0.11 [facility] RESPIRATORY PANEL MOLECULARo n 11-21-2024 RP PANEL Normal [facility] Comment on above: Performed By: #### M 100.638 ####[facility] [address] [place], [place], [address] Serum or plasma C reactive p rotein measurement (mass/volume)Ordered By: Mariah Brewer on 11-21-2024 CRP [Mass/Vol] 115.00 mg/L High 0.0-3.0 [facility] Urine Cultureon 11-21-2024 URC Culture exhibits no growth. Normal [facility] Comment on above: Performed By: #### M 100.2200, L400.0001, M100.678 ####[facility] [address] [place], [place], [id number] Abdomen/Pelvis W IV Cont ONL Yon 11-20-2024 Abdomen/Pelvis W IV Cont ONLY Normal [facility] Absolute lymphocyte countOrd ered By: Javy Saul on 11-20-2024 Lymphocytes Auto (Unsp spec) [#/Vol] 0.50 10*3/uL Low 0.83-4.51 [facility] Absolute neutrophil countOrd ered By: Javy Saul on 11-20-2024 Neutrophils (Bld) [#/Vol] 8.5 10*3/uL High 2.0-7.7 [facility] Activated partial thrombopla stin time (aPTT) in platelet poor plasma by coagulation aOrdered By: Javy Saul on 11-20-2024 aPTT Coag (PPP) [Time] 22.6 s Low 24.1-36.2 [facility] Anion gap in Serum or Plasma Ordered By: Javy Saul on 11-20-2024 Anion gap [Moles/Vol] 8 mmol/L 5-15 [facility] Automated lymphocyte count a s percentage of total leukocytesOrdered By: Javy Saul on 11-20-2024 Lymphocytes/100 WBC Auto (Unsp spec) 5.2 % Low 19-41 [facility] BUN/creatinine ratioOrdered By: Javy Saul on 11-20-2024 Urea nitrogen/Creatinine [Mass ratio] 12.3 mg/mg 10-20 [facility] Basophil percentageOrdered B y: Javy Liangehne on 11-20-2024 Basophils/100 WBC (Bld) 0.2 % 0-1 [facility] Bedside Glucoseon 11-20-2024 FINGERSTICK GLU 123 mg/dL High 74-106 [facility] Comment on above: Result Comment: ELLIOTT ESTRADA OF PATIENT CARE PER NURSING PROTOCOL Performed By: #### L 501.080 ####[facility] [address] [place], [place], [id number] Bilirubin Test strip Ql (U)O rdered By: Javy Saul on 11-20-2024 Bilirubin Ql (U) Negative Negative [facility] Bilirubin, totalOrdered By: Javy Dorys on 11-20-2024 Bilirubin [Mass/Vol] 0.37 mg/dL 0.00-1.30 [facility] Blood cultureOrdered By: Evelio Saul on 11-20-2024 Bacteria identified Cx Nom (Bld) Staphylococcus aureus Abnormal [facility] Bacteria identified Cx Nom (Bld) Meth. resistant Staph. aureus Abnormal [facility] Brain/Head without Contrasto n 11-20-2024 Brain/Head without Contrast Normal [facility] CBC W/Diff, Automatedon Absolute Lymph 0.50 X10 3/uL Low 0.83-4.51 [facility] Comment on above: Performed By: #### L 503.6005, L100.0100, L300.3900, L300.4310, M200.1000, M100.636, L500.4050 ####[facility] [address] [place], [address] Absolute Neut 8.5 X10 3/uL High 2.0-7.7 [facility] Comment on above: Performed By: #### L 503.6005, L100.0100, L300.3900, L300.4310, M200.1000, M100.636, L500.4050 ####[facility] [address] [place], [address] Basophils/100 WBC (Bld) 0.2 % Normal 0-1 [facility] Comment on above: Performed By: #### L 503.6005, L100.0100, L300.3900, L300.4310, M200.1000, M100.636, L500.4050 ####[facility] [address] [place], [address] Eosinophils/100 WBC (Bld) 0.4 % Normal 0-5 [facility] Comment on above: Performed By: #### L 503.6005, L100.0100, L300.3900, L300.4310, M200.1000, M100.636, L500.4050 ####[facility] [address] [place], [address] Erythrocyte distribution width (RBC) [Ratio] 14.2 % Normal 11.6-14.6 [facility] Comment on above: Performed By: #### L 503.6005, L100.0100, L300.3900, L300.4310, M200.1000, M100.636, L500.4050 ####[facility] [address] [place], [address] Hematocrit (Bld) [Volume fraction] 38.8 % Normal 37-47 [facility] Comment on above: Performed By: #### L 503.6005, L100.0100, L300.3900, L300.4310, M200.1000, M100.636, L500.4050 ####[facility] [address] [place], [address] Hemoglobin (Bld) [Mass/Vol] 12.6 g/dL Normal 12.0-15.0 [facility] Comment on above: Performed By: #### L 503.6005, L100.0100, L300.3900, L300.4310, M200.1000, M100.636, L500.4050 ####[facility] [address] [place], [address] IG% 0.700 Normal 0.0-0.9 [facility] Comment on above: Result Comment: IG% - Immature Granulocytes (promyelocytes, myelocytes andmetamyelocytes) > 1% indicates that a LEFT SHIFT is Present. Performed By: #### L 503.6005, L100.0100, L300.3900, L300.4310, M200.1000, M100.636, L500.4050 ####[facility] [address] [place], [address] Lymphocytes/100 WBC (Bld) 5.2 % Low 19-41 [facility] Comment on above: Performed By: #### L 503.6005, L100.0100, L300.3900, L300.4310, M200.1000, M100.636, L500.4050 ####[facility] [address] [place], [address] MCH (RBC) [Entitic mass] 29.4 pg Normal 27.0-32.0 [facility] Comment on above: Performed By: #### L 503.6005, L100.0100, L300.3900, L300.4310, M200.1000, M100.636, L500.4050 ####[facility] [address] [place], [address] MCHC (RBC) [Mass/Vol] 32.5 g/dL Normal 32-36 [facility] Comment on above: Performed By: #### L 503.6005, L100.0100, L300.3900, L300.4310, M200.1000, M100.636, L500.4050 ####[facility] [address] [place], [address] MCV (RBC) [Entitic vol] 90.4 fL Normal 81-99 [facility] Comment on above: Performed By: #### L 503.6005, L100.0100, L300.3900, L300.4310, M200.1000, M100.636, L500.4050 ####[facility] [address] [place], [address] Monocytes/100 WBC (Bld) 4.1 % Normal 0-10 [facility] Comment on above: Performed By: #### L 503.6005, L100.0100, L300.3900, L300.4310, M200.1000, M100.636, L500.4050 ####[facility] [address] [place], [address] Neutrophils/100 WBC (Bld) 89.4 % High 47-70 [facility] Comment on above: Performed By: #### L 503.6005, L100.0100, L300.3900, L300.4310, M200.1000, M100.636, L500.4050 ####[facility] [address] [place], [address] Nucleated RBC (Bld) [#/Vol] 0 10*3/uL Normal 0-5 [facility] Comment on above: Performed By: #### L 503.6005, L100.0100, L300.3900, L300.4310, M200.1000, M100.636, L500.4050 ####[facility] [address] [place], [address] Platelet mean volume (Bld) [Entitic vol] 10.4 fL Normal 6.2-12.0 [facility] Comment on above: Performed By: #### L 503.6005, L100.0100, L300.3900, L300.4310, M200.1000, M100.636, L500.4050 ####[facility] [address] [place], [address] Platelets (Bld) [#/Vol] 148 10*3/uL Low 150-450 [facility] Comment on above: Performed By: #### L 503.6005, L100.0100, L300.3900, L300.4310, M200.1000, M100.636, L500.4050 ####[facility] [address] [place], [address] RBC (Bld) [#/Vol] 4.29 10*6/uL Normal 4.2-5.4 [facility] Comment on above: Performed By: #### L 503.6005, L100.0100, L300.3900, L300.4310, M200.1000, M100.636, L500.4050 ####[facility] [address] [place], [address] RDW SD 46.5 fl High 35.1-43.9 [facility] Comment on above: Performed By: #### L 503.6005, L100.0100, L300.3900, L300.4310, M200.1000, M100.636, L500.4050 ####[facility] [address] [place], [address] WBC (Bld) [#/Vol] 9.6 10*3/uL Normal 4.4-11.0 [facility] Comment on above: Performed By: #### L 503.6005, L100.0100, L300.3900, L300.4310, M200.1000, M100.636, L500.4050 ####[facility] [address] [place], [address] CRPon 11-20-2024 C-REACTIVE PROT 11.00 mg/L High 0.0-3.0 [facility] Comment on above: Performed By: #### L 509.7001, L501.6710, L101.9900 ####[facility] [address] [place], [address] Carbon dioxide, total [Moles /volume] in Central venous bloodOrdered By: Javy Saul on 11-20-2024 CO2 [Moles/Vol] 24.5 mmol/L 21.0-32.0 [facility] Chest 1 View (Portable)on Chest 1 View (Portable) Normal [facility] Chloride assayOrdered By: Romero Saul on 11-20-2024 Chloride [Moles/Vol] 100 mmol/L 98-108 [facility] Comprehensive Metabolic Prof ilon 11-20-2024 Albumin [Mass/Vol] 3.7 g/dL Normal 3.5-5.0 [facility] Comment on above: Performed By: #### L 503.6005, L100.0100, L300.3900, L300.4310, M200.1000, M100.636, L500.4050 ####[facility] [address] [place], [address] Albumin/Globulin [Mass ratio] 1.1 {ratio} Normal 0.9-2.4 [facility] Comment on above: Performed By: #### L 503.6005, L100.0100, L300.3900, L300.4310, M200.1000, M100.636, L500.4050 ####[facility] [address] [place], [address] ALK PHOS 175 U/L High 35-104 [facility] Comment on above: Performed By: #### L 503.6005, L100.0100, L300.3900, L300.4310, M200.1000, M100.636, L500.4050 ####[facility] [address] [place], [address] ALT [Catalytic activity/Vol] 26 U/L Normal <=34 [facility] Comment on above: Performed By: #### L 503.6005, L100.0100, L300.3900, L300.4310, M200.1000, M100.636, L500.4050 ####[facility] [address] [place], [address] AST [Catalytic activity/Vol] 24 U/L Normal <=31 [facility] Comment on above: Performed By: #### L 503.6005, L100.0100, L300.3900, L300.4310, M200.1000, M100.636, L500.4050 ####[facility] [address] [place], [address] Bilirubin [Mass/Vol] 0.37 mg/dL Normal 0.00-1.30 [facility] Comment on above: Performed By: #### L 503.6005, L100.0100, L300.3900, L300.4310, M200.1000, M100.636, L500.4050 ####[facility] [address] [place], [address] BUN/CRE 12.3 RATIO Normal 10-20 [facility] Comment on above: Performed By: #### L 503.6005, L100.0100, L300.3900, L300.4310, M200.1000, M100.636, L500.4050 ####[facility] [address] [place], [address] Calcium [Mass/Vol] 9.3 mg/dL Normal 7.6-11.0 [facility] Comment on above: Performed By: #### L 503.6005, L100.0100, L300.3900, L300.4310, M200.1000, M100.636, L500.4050 ####[facility] [address] [place], [address] Chloride [Moles/Vol] 100 mmol/L Normal 98-108 [facility] Comment on above: Performed By: #### L 503.6005, L100.0100, L300.3900, L300.4310, M200.1000, M100.636, L500.4050 ####[facility] [address] [place], [address] CO2 [Moles/Vol] 24.5 mmol/L Normal 21.0-32.0 [facility] Comment on above: Performed By: #### L 503.6005, L100.0100, L300.3900, L300.4310, M200.1000, M100.636, L500.4050 ####[facility] [address] [place], [address] Creatinine [Mass/Vol] 0.83 mg/dL Normal 0.70-1.20 [facility] Comment on above: Performed By: #### L 503.6005, L100.0100, L300.3900, L300.4310, M200.1000, M100.636, L500.4050 ####[facility] [address] [place], [address] ECRCL 104.64 ml/min Normal 50-250 [facility] Comment on above: Performed By: #### L 503.6005, L100.0100, L300.3900, L300.4310, M200.1000, M100.636, L500.4050 ####[facility] [address] [place], [address] GAP 8 Normal 5-15 [facility] Comment on above: Performed By: #### L 503.6005, L100.0100, L300.3900, L300.4310, M200.1000, M100.636, L500.4050 ####[facility] [address] [place], [address] GFR/1.73 sq M.predicted among non-blacks MDRD (S/P/Bld) [Vol rate/Area] 81 mL/min/{1.73_m2} Normal >60 [facility] Comment on above: Result Comment: mL/m in/1.73m2 CKD-EPI Creatinine Equation (2020) Performed By: #### L 503.6005, L100.0100, L300.3900, L300.4310, M200.1000, M100.636, L500.4050 ####[facility] [address] [place], [address] Globulin (S) [Mass/Vol] 3.4 g/dL Normal 2.2-4.2 [facility] Comment on above: Performed By: #### L 503.6005, L100.0100, L300.3900, L300.4310, M200.1000, M100.636, L500.4050 ####[facility] [address] [place], [address] Glucose [Mass/Vol] 263 mg/dL High 70-99 [facility] Comment on above: Performed By: #### L 503.6005, L100.0100, L300.3900, L300.4310, M200.1000, M100.636, L500.4050 ####[facility] [address] [place], [address] Potassium [Moles/Vol] 4.5 mmol/L Normal 3.3-5.1 [facility] Comment on above: Performed By: #### L 503.6005, L100.0100, L300.3900, L300.4310, M200.1000, M100.636, L500.4050 ####[facility] [address] [place], [address] Sodium [Moles/Vol] 132 mmol/L Low 133-145 [facility] Comment on above: Performed By: #### L 503.6005, L100.0100, L300.3900, L300.4310, M200.1000, M100.636, L500.4050 ####[facility] [address] [place], [address] T PROT 7.1 g/dL Normal 5.9-8.4 [facility] Comment on above: Performed By: #### L 503.6005, L100.0100, L300.3900, L300.4310, M200.1000, M100.636, L500.4050 ####[facility] [address] [place], [address] Urea nitrogen [Mass/Vol] 10 mg/dL Normal 4-19 [facility] Comment on above: Performed By: #### L 503.6005, L100.0100, L300.3900, L300.4310, M200.1000, M100.636, L500.4050 ####[facility] [address] [place], [place], [id number] Consultation - [facility] 11-20-2024 Consultation - Head Of Business Development Normal [facility] Echo Complete W/ Contraston 11-20-2024 Echo Complete W/ Contrast Normal [facility] Emergency Department Summary on 11-20-2024 Emergency Department Summary Normal [facility] Eosinophil percentageOrdered By: Javy Saul on 11-20-2024 Eosinophils/100 WBC (Bld) 0.4 % 0-5 [facility] Erythrocyte Sed Rateon 11-20 SED RATE 19 mm/hr Normal 0-30 [facility] Comment on above: Performed By: #### L 509.7001, L501.6710, L101.9900 ####[facility] [address] [place], [place], [id number] Erythrocyte distribution wid th ratioOrdered By: Javy Saul on 11-20-2024 Erythrocyte distribution width (RBC) [Ratio] 14.2 % 11.6-14.6 [facility] Erythrocyte distribution wid th standard deviationOrdered By: Javy Saul on 11-20-2024 Erythrocyte distribution width (RBC) [Ratio] 46.5 fl High 35.1-43.9 [facility] Glomerular filtration rate ( GFR) estimation/1.73 sq m using serum, plasma, or whole bOrdered By: Javy Saul on 11-20-2024 GFR/1.73 sq M.predicted among non-blacks MDRD (S/P/Bld) [Vol rate/Area] 81 mL/min/{1.73_m2} >60 [facility] Comment on above: mL/min/1.73m2 CKD-EP I Creatinine Equation (2020) H AND P Exam - Hospitaliston 11-20-2024 H&P Exam - Hospitalist Normal [facility] Hematocrit Auto (Bld) [Volum e fraction]Ordered By: Javy Saul on 11-20-2024 Hematocrit (Bld) [Volume fraction] 38.8 % 37-47 [facility] Hemoglobin measurementOrdere d By: Javy Saul on 11-20-2024 Hemoglobin (Bld) [Mass/Vol] 12.6 g/dL 12.0-15.0 [facility] Immature granulocytes/100 WB C Auto (Bld)Ordered By: Javy Saul on 11-20-2024 Immature granulocytes/100 WBC (Bld) 0.700 % 0.0-0.9 [facility] Comment on above: IG% - Immature Granu locytes (promyelocytes, myelocytes and metamyelocytes) > 1% indicates that a LEFT SHIFT is Present. Influenza virus A and B and SARS-CoV-2 (COVID-19) and Respiratory syncytial virus RNAOrdered By: Javy Saul on 11-20-2024 SARS-CoV-2 (COVID-19) RNA LUÍS+probe Ql (Unsp spec) [facility] International normalized rat io (INR) calculationOrdered By: Javy Saul on 11-20-2024 INR Coag (Bld) [Relative time] 1.0 {INR} [facility] Ketones Test strip Ql (U)Ord ered By: Javy Saul on 11-20-2024 Ketones Ql (U) Negative Negative [facility] L509.7001on 11-20-2024 Procalcitonin 0.10 ng/mL Normal <=0.10 [facility] Comment on above: Result Comment: Inte rpretation:<0.10-0.25 ng/mL: Antibiotic therapy discouraged. Bacterialinfection unlikely.0.25-0.50 ng/mL: Antibiotic therapy encouraged. Bacterialinfection possible.>0.50 ng/mL: Antibiotic therapy strongly encouraged.Suggestive of presence of bacterial infection.PCT should always be interpreted in the clinical context ofthe patient. Therefore, clinicians should use the PCTresults in conjunction with other laboratory findings andclinical signs of the patient. Performed By: #### L 509.7001, L501.6710, L101.9900 ####[facility] [id number] [place], [place], [id number] Laboratory - Chemistry and C hemistry - challengeOrdered By: Javy Saul on 11-20-2024 AST [Catalytic activity/Vol] 24 U/L <32 [facility] Lactic Acidon 11-20-2024 Lactate [Moles/Vol] 2.4 mmol/L Invalid Interpretation Code 0.0-2.0 [facility] Comment on above: Result Comment: Crit ical Result(s) Called at: 2056 by: SONIA JANSEN TO GAIL Results read back by same. Performed By: #### L 503.6005 ####[facility] [id number] [place], [place], [id number] Lactate [Moles/Vol] 2.4 mmol/L Invalid Interpretation Code 0.0-2.0 [facility] Comment on above: Order Comment: Y Result Comment: Crit ical Result(s) Called to Santos LEGER (ER): Zofiar:??Results read back by same. Performed By: #### L 503.6005, L100.0100, L300.3900, L300.4310, M200.1000, M100.636, L500.4050 ####[facility] [address] [place], [place], [id number] Lactic acid measurementOrder ed By: Javy Saul on 11-20-2024 Lactate [Moles/Vol] 2.4 mmol/L High 0.0-2.0 [facility] Comment on above: Critical Result(s) C alled to Santos LEGER (ER): by Mandi: Results read back by same. M100.678on 11-20-2024 M100.678 Pending SARS-CoV-2 (COVID 19) Negative INFLUENZA A Negative INFLUENZA B Negative RSV PCR Negative Normal [facility] Comment on above: Performed By: #### M 100.2200, L400.0001, M100.678 ####[facility] [address] [place], [place], [id number] MCV (mean corpuscular volume ) determinationOrdered By: Javy Saul on 11-20-2024 MCV (RBC) [Entitic vol] 90.4 fL 81-99 [facility] Mean corpuscular hemoglobin (MCH) determinationOrdered By: Javy Saul on 11-20-2024 MCH (RBC) [Entitic mass] 29.4 pg 27.0-32.0 [facility] Mean corpuscular hemoglobin concentration (MCHC) determinationOrdered By: Javy Saul on 11-20-2024 MCHC (RBC) [Mass/Vol] 32.5 g/dL 32-36 [facility] Mean platelet volume determi nationOrdered By: Javy Saul on 11-20-2024 Platelet mean volume (Bld) [Entitic vol] 10.4 fL 6.2-12.0 [facility] Microscopic analysis of urin e for red blood cells (RBC)Ordered By: Javy Saul on 11-20-2024 Microscopic analysis of urine for red blood cells (RBC) 0-5 SEEN /hpf 0-5 [facility] Monocyte percentageOrdered B y: Javy Saul on 11-20-2024 Monocytes/100 WBC (Bld) 4.1 % 0-10 [facility] Mucus LM Ql (Urine sed)Order ed By: Javy Saul on 11-20-2024 Mucus Ql (Urine sed) 0 SEEN /hpf [facility] Neutrophil percentageOrdered By: Javy Saul on 11-20-2024 Neutrophils/100 WBC (Bld) 89.4 % High 47-70 [facility] Nitrite Test strip Ql (U)Ord ered By: Javy Saul on 11-20-2024 Nitrite Ql (U) Negative Negative [facility] No Panel InformationOrdered By: Javy Saul on 11-20-2024 24 U/L <32 [facility] Nucleated red blood cell per centageOrdered By: Javy Saul on 11-20-2024 Nucleated RBC/100 WBC (Bld) [Ratio] 0 % 0-5 [facility] Organism identificationOrder ed By: Javy Saul on 11-20-2024 Microorganism identified Cx Nom (Unsp spec) Meth. resistant Staph. aureus Abnormal [facility] Partial Thromboplast Timeon 11-20-2024 aPTT Coag (Bld) [Time] 22.6 s Low 24.1-36.2 [facility] Comment on above: Performed By: #### L 503.6005, L100.0100, L300.3900, L300.4310, M200.1000, M100.636, L500.4050 ####[facility] [address] [place], [address] Platelet countOrdered By: Romero Saul on 11-20-2024 Platelets (Bld) [#/Vol] 148 10*3/uL Low 150-450 [facility] Potassium measurement (mass/ volume)Ordered By: Javy Saul on 11-20-2024 Potassium (Unsp spec) [Mass/Vol] 4.5 mmol/L 3.3-5.1 [facility] Protein Test strip Ql (U)Ord ered By: Javy Saul on 11-20-2024 Protein Ql (U) Negative Negative [facility] Prothrombin Time w/INRon INR Coag (PPP) [Relative time] 1.0 {INR} Normal [facility] Comment on above: Performed By: #### L 503.6005, L100.0100, L300.3900, L300.4310, M200.1000, M100.636, L500.4050 ####[facility] [address] [place], [place], [phone] PT Coag (PPP) [Time] 13.6 s Normal 11.7-14.9 [facility] Comment on above: Performed By: #### L 503.6005, L100.0100, L300.3900, L300.4310, M200.1000, M100.636, L500.4050 ####[facility] [address] [place], [place], [phone] Prothrombin timeOrdered By: Javy Saul on 11-20-2024 PT Coag (PPP) [Time] 13.6 s 11.7-14.9 [facility] RBC Auto (Bld) [#/Vol]Ordere d By: Javy Saul on 11-20-2024 RBC (Bld) [#/Vol] 4.29 10*6/uL 4.2-5.4 [facility] Respiratory pathogens detect ion panel by molecular detection methodOrdered By: Mariah Brewer on 11-20-2024 Respiratory pathogens DNA and RNA panel LUÍS+probe (Resp) [facility] Serum creatinine measurement (mass/volume)Ordered By: Javy Saul on 11-20-2024 Creatinine [Mass/Vol] 0.83 mg/dL 0.70-1.20 [facility] Serum globulin measurementOr dered By: Javy Saul on 11-20-2024 Globulin (S) [Mass/Vol] 3.4 g/dL 2.2-4.2 [facility] Serum glucose measurement (m ass/volume)Ordered By: Javy Saul on 11-20-2024 Glucose [Mass/Vol] 263 mg/dL High 70-99 [facility] Serum or plasma alanine guzman otransferase (ALT) measurementOrdered By: Javy Saul on 11-20-2024 ALT [Catalytic activity/Vol] 26 U/L <35 [facility] Serum or plasma albumin johnathon urement (mass/volume)Ordered By: Javy Saul on 11-20-2024 Albumin [Mass/Vol] 3.7 g/dL 3.5-5.0 [facility] Serum or plasma albumin/glob ulin mass ratioOrdered By: Javy Saul on 11-20-2024 Albumin/Globulin [Mass ratio] 1.1 {ratio} 0.9-2.4 [facility] Serum or plasma alkaline tabitha sphatase measurementOrdered By: Javy Saul on 11-20-2024 ALP [Catalytic activity/Vol] 175 U/L High 35-104 [facility] Serum or plasma calcium johnathon urement (mass/volume)Ordered By: Javy Saul on 11-20-2024 Calcium [Mass/Vol] 9.3 mg/dL 7.6-11.0 [facility] Serum or plasma urea nitroge n measurement (mass/volume)Ordered By: Javy Saul on 11-20-2024 Urea nitrogen [Mass/Vol] 10 mg/dL 4-19 [facility] Sodium levelOrdered By: Fransisco Saul on 11-20-2024 Sodium [Moles/Vol] 132 mmol/L Low 133-145 [facility] Spine Lumbar without Contras ton 11-20-2024 Spine Lumbar without Contrast Normal [facility] Squamous epithelial cells de tection in urine sediment by light microscopyOrdered By: Javy Saul on 11-20-2024 Epithelial cells.squamous LM Ql (Urine sed) 5-10 SEEN /hpf - [facility] Total proteinOrdered By: Evelio Saul on 11-20-2024 Protein [Mass/Vol] 7.1 g/dL 5.9-8.4 [facility] Urinalysis, Completeon 11-20 BACTERIA RARE Normal None Seen [facility] Comment on above: Order Comment: MAGEN TER SPECIMEN Performed By: #### M 100.2200, L400.0001, M100.678 ####[facility] [address] [place], [address] EPI,SQUAMOUS 5-10 SEEN Normal - [facility] Comment on above: Order Comment: MAGEN TER SPECIMEN Performed By: #### M 100.2200, L400.0001, M100.678 ####[facility] [address] [place], [address] RBC 0-5 SEEN Normal 0-5 [facility] Comment on above: Order Comment: MAGEN TER SPECIMEN Performed By: #### M 100.2200, L400.0001, M100.678 ####[facility] [address] [place], [address] WBC 0-5 SEEN Normal 0-5 [facility] Comment on above: Order Comment: MAGEN TER SPECIMEN Performed By: #### M 100.2200, L400.0001, M100.678 ####[facility] [address] [place], [address] Mucus Ql (Urine sed) 0 SEEN Normal [facility] Comment on above: Order Comment: MAGEN TER SPECIMEN Performed By: #### M 100.2200, L400.0001, M100.678 ####[facility] [address] [place], [address] Urine clarityOrdered By: Evelio Saul on 11-20-2024 Clarity (U) Clear Clear [facility] Urine color determinationOrd ered By: Javy Saul on 11-20-2024 Color (U) Straw Yellow [facility] Urine cultureOrdered By: Evelio Saul on 11-20-2024 Bacteria identified Cx Nom (U) Culture exhibits no growth. [facility] Urine glucose detectionOrder ed By: Javy Saul on 11-20-2024 Glucose Ql (U) 1000 mg/dl High Normal [facility] Urine leukocyte esterase det ection by dipstickOrdered By: Jvay Saul on 11-20-2024 Leukocyte esterase Test strip Ql (U) Negative Negative [facility] Urine pHOrdered By: Javy woodward on 11-20-2024 pH (U) 6.0 [pH] 5.0 - 8.0 [facility] Urine sediment bacteria coun t by microscopy (number/high power field)Ordered By: Javy Saul on 11-20-2024 Bacteria LM.HPF (Urine sed) [#/Area] RARE /hpf None Seen [facility] Urine specific gravity measu rementOrdered By: Javy Saul on 11-20-2024 Specific gravity (U) [Rel density] 1.015 1.002-1.030 [facility] Urine urobilinogen measureme ntOrdered By: Javy Saul on 11-20-2024 Urobilinogen Ql (U) Normal mg/dl Normal [facility] White blood cell (WBC) count Ordered By: Javy Saul on 11-20-2024 WBC (Bld) [#/Vol] 9.6 10*3/uL 4.4-11.0 [facility] White blood cell countOrdere d By: Javy Saul on 11-20-2024 White blood cell count 0-5 SEEN /hpf 0-5 [facility] Pacemaker Checkon 11-09-2024 Pacemaker Check Normal [facility] Emergency Department Summary on 11-07-2024 Emergency Department Summary Normal [facility] Cardiology Visit Reporton Cardiology Visit Report Normal [facility] Internal Medicine Office Vis [facility] 10-18-2024 Internal Medicine Office Visit Normal [facility] Endocrinology Visit Reporton 10-15-2024 Endocrinology Visit Report Normal [facility] Laboratory - Hematology and Cell countsOrdered By: Lisseth Peñaloza on 09-07-2024 HbA1c (Bld) [Mass fraction] 10.7 % High 4.2-6.3 [facility] No Panel InformationOrdered By: Lisseth Peñaloza on 09-07-2024 10.7 % High 4.2-6.3 [facility] Internal Medicine Office Vis iton 09-06-2024 Internal Medicine Office Visit Normal [facility] Absolute lymphocyte countOrd ered By: Lisseth Peñaloza on 08-26-2024 Lymphocytes Auto (Unsp spec) [#/Vol] 1.28 10*3/uL 0.83-4.51 [facility] Absolute neutrophil countOrd ered By: Lisseth Peñaloza on 02-12-2025 Neutrophils (Bld) [#/Vol] 5.6 10*3/uL 2.0-7.7 [facility] Albumin to globulin ratioOrd ered By: Lisseth Peñaloza on 08-26-2024 Albumin/Globulin [Mass ratio] 0.8 {ratio} Low 0.9-2.4 [facility] Automated lymphocyte count a s percentage of total leukocytesOrdered By: Lisseth Peñaloza on 08-26-2024 Lymphocytes/100 WBC Auto (Unsp spec) 17.5 % Low 19-41 [facility] Basophil percentageOrdered B y: Lisseth Peñaloza on 08-26-2024 Basophils/100 WBC (Bld) 0.7 % 0-1 [facility] Bilirubin, totalOrdered By: Lisseth Peñaloza on 08-26-2024 Bilirubin [Mass/Vol] 0.20 mg/dL 0.20-1.00 [facility] Comment on above: For patients on eltr ombopag therapy, use of Dimension Mayo TBIL is not recommended. Blood urea nitrogen (BUN)/cr eatinine ratioOrdered By: Lisseth Peñaloza on 08-26-2024 Urea nitrogen/Creatinine [Mass ratio] 18.6 mg/mg 10-20 [facility] CBC W/Diff, Automatedon 08-15 Absolute Lymph 1.28 X10 3/uL Normal 0.83-4.51 [facility] Comment on above: Performed By: #### L 506.1000, L500.4100, L500.4050, L509.6000, L100.0100 ####[facility] [address] [place], [address] Absolute Neut 5.6 X10 3/uL Normal 2.0-7.7 [facility] Comment on above: Performed By: #### L 506.1000, L500.4100, L500.4050, L509.6000, L100.0100 ####[facility] [address] [place], [address] Basophils/100 WBC (Bld) 0.7 % Normal 0-1 [facility] Comment on above: Performed By: #### L 506.1000, L500.4100, L500.4050, L509.6000, L100.0100 ####[facility] [address] [place], [address] Eosinophils/100 WBC (Bld) 1.0 % Normal 0-5 [facility] Comment on above: Performed By: #### L 506.1000, L500.4100, L500.4050, L509.6000, L100.0100 ####[facility] [address] [place], [address] Erythrocyte distribution width (RBC) [Ratio] 14.3 % Normal 11.6-14.6 [facility] Comment on above: Performed By: #### L 506.1000, L500.4100, L500.4050, L509.6000, L100.0100 ####[facility] [address] [place], [address] Hematocrit (Bld) [Volume fraction] 38.6 % Normal 37-47 [facility] Comment on above: Performed By: #### L 506.1000, L500.4100, L500.4050, L509.6000, L100.0100 ####[facility] [address] [place], [address] Hemoglobin (Bld) [Mass/Vol] 12.2 g/dL Normal 12.0-15.0 [facility] Comment on above: Performed By: #### L 506.1000, L500.4100, L500.4050, L509.6000, L100.0100 ####[facility] [address] [place], [address] IG% 0.400 Normal 0.0-0.9 [facility] Comment on above: Result Comment: IG% - Immature Granulocytes (promyelocytes, myelocytes andmetamyelocytes) > 1% indicates that a LEFT SHIFT is Present. Performed By: #### L 506.1000, L500.4100, L500.4050, L509.6000, L100.0100 ####[facility] [address] [place], [address] Lymphocytes/100 WBC (Bld) 17.5 % Low 19-41 [facility] Comment on above: Performed By: #### L 506.1000, L500.4100, L500.4050, L509.6000, L100.0100 ####[facility] [address] [place], [address] MCH (RBC) [Entitic mass] 28.9 pg Normal 27.0-32.0 [facility] Comment on above: Performed By: #### L 506.1000, L500.4100, L500.4050, L509.6000, L100.0100 ####[facility] [address] [place], [address] MCHC (RBC) [Mass/Vol] 31.6 g/dL Low 32-36 [facility] Comment on above: Performed By: #### L 506.1000, L500.4100, L500.4050, L509.6000, L100.0100 ####[facility] [address] [place], [address] MCV (RBC) [Entitic vol] 91.5 fL Normal 81-99 [facility] Comment on above: Performed By: #### L 506.1000, L500.4100, L500.4050, L509.6000, L100.0100 ####[facility] [address] [place], [address] Monocytes/100 WBC (Bld) 4.5 % Normal 0-10 [facility] Comment on above: Performed By: #### L 506.1000, L500.4100, L500.4050, L509.6000, L100.0100 ####[facility] [address] [place], [address] Neutrophils/100 WBC (Bld) 75.9 % High 47-70 [facility] Comment on above: Performed By: #### L 506.1000, L500.4100, L500.4050, L509.6000, L100.0100 ####[facility] [address] [place], [address] Nucleated RBC (Bld) [#/Vol] 0 10*3/uL Normal 0-5 [facility] Comment on above: Performed By: #### L 506.1000, L500.4100, L500.4050, L509.6000, L100.0100 ####[facility] [address] [place], [address] Platelet mean volume (Bld) [Entitic vol] 10.9 fL Normal 6.2-12.0 [facility] Comment on above: Performed By: #### L 506.1000, L500.4100, L500.4050, L509.6000, L100.0100 ####[facility] [address] [place], [address] Platelets (Bld) [#/Vol] 197 10*3/uL Normal 150-450 [facility] Comment on above: Performed By: #### L 506.1000, L500.4100, L500.4050, L509.6000, L100.0100 ####[facility] [address] [place], [address] RBC (Bld) [#/Vol] 4.22 10*6/uL Normal 4.2-5.4 [facility] Comment on above: Performed By: #### L 506.1000, L500.4100, L500.4050, L509.6000, L100.0100 ####[facility] [address] [place], [address] RDW SD 47.9 fl High 35.1-43.9 [facility] Comment on above: Performed By: #### L 506.1000, L500.4100, L500.4050, L509.6000, L100.0100 ####[facility] [address] [place], [address] WBC (Bld) [#/Vol] 7.3 10*3/uL Normal 4.4-11.0 [facility] Comment on above: Performed By: #### L 506.1000, L500.4100, L500.4050, L509.6000, L100.0100 ####[facility] [address] [place], [address] CORTISOL SERUMon 08-26-2024 CORTISOL 0.60 ug/dL Low 3.44-22.45 [facility] Comment on above: Result Comment: Adul t (AM) 5.27 - 22.45 ug/dL Adult (PM) 3.44 - 16.76 ug/dL Performed By: #### L 506.1000, L500.4100, L500.4050, L509.6000, L100.0100 ####[facility] [address] [place], [address] Carbon dioxide measurementOr dered By: Lisseth Peñaloza on 08-26-2024 CO2 [Moles/Vol] 28.0 mmol/L 21.0-32.0 [facility] Chloride measurementOrdered By: Lisseth Peñaloza on 08-26-2024 Chloride [Moles/Vol] 103 mmol/L 98-107 [facility] Comprehensive Metabolic Prof ilon 08-26-2024 Albumin [Mass/Vol] 3.3 g/dL Normal 3.2-5.0 [facility] Comment on above: Performed By: #### L 506.1000, L500.4100, L500.4050, L509.6000, L100.0100 ####[facility] [address] [place], [address] Albumin/Globulin [Mass ratio] 0.8 {ratio} Low 0.9-2.4 [facility] Comment on above: Performed By: #### L 506.1000, L500.4100, L500.4050, L509.6000, L100.0100 ####[facility] [address] [place], [address] ALK P 165 U/L High 45-117 [facility] Comment on above: Performed By: #### L 506.1000, L500.4100, L500.4050, L509.6000, L100.0100 ####[facility] [address] [place], [address] ALT [Catalytic activity/Vol] 31 U/L Normal 13-56 [facility] Comment on above: Performed By: #### L 506.1000, L500.4100, L500.4050, L509.6000, L100.0100 ####[facility] [address] [place], [address] AST [Catalytic activity/Vol] 19 U/L Normal 15-37 [facility] Comment on above: Performed By: #### L 506.1000, L500.4100, L500.4050, L509.6000, L100.0100 ####[facility] [address] [place], [address] Bilirubin [Mass/Vol] 0.20 mg/dL Normal 0.20-1.00 [facility] Comment on above: Result Comment: For patients on eltrombopag therapy, use of Dimension Mayo TBIL is not recommended. Performed By: #### L 506.1000, L500.4100, L500.4050, L509.6000, L100.0100 ####[facility] [address] [place], [address] BUN/CRE 18.6 RATIO Normal 10-20 [facility] Comment on above: Performed By: #### L 506.1000, L500.4100, L500.4050, L509.6000, L100.0100 ####[facility] [address] [place], [address] CA,Total 9.3 mg/dL Normal 8.5-10.1 [facility] Comment on above: Performed By: #### L 506.1000, L500.4100, L500.4050, L509.6000, L100.0100 ####[facility] [address] [place], [address] Chloride [Moles/Vol] 103 mmol/L Normal 98-107 [facility] Comment on above: Performed By: #### L 506.1000, L500.4100, L500.4050, L509.6000, L100.0100 ####[facility] [address] [place], [address] CO2 [Moles/Vol] 28.0 mmol/L Normal 21.0-32.0 [facility] Comment on above: Performed By: #### L 506.1000, L500.4100, L500.4050, L509.6000, L100.0100 ####[facility] [address] [place], [address] Creatinine [Mass/Vol] 0.86 mg/dL Normal 0.55-1.02 [facility] Comment on above: Result Comment: The validity of the calculated GFR GFRAA in patients over70 years has not been determined. Clinical correlation isessential. Performed By: #### L 506.1000, L500.4100, L500.4050, L509.6000, L100.0100 ####[facility] [address] [place], [address] EST GFR - AA 87 mL/min Normal >60 [facility] Comment on above: Result Comment: Afri can Bahraini GFR Calc Performed By: #### L 506.1000, L500.4100, L500.4050, L509.6000, L100.0100 ####[facility] [address] [place], [address] GAP 6 Normal 5-15 [facility] Comment on above: Performed By: #### L 506.1000, L500.4100, L500.4050, L509.6000, L100.0100 ####[facility] [address] [place], [address] GFR/1.73 sq M.predicted among non-blacks MDRD (S/P/Bld) [Vol rate/Area] 72 mL/min/{1.73_m2} Normal >60 [facility] Comment on above: Result Comment: Non- GFR Calc Performed By: #### L 506.1000, L500.4100, L500.4050, L509.6000, L100.0100 ####[facility] [address] [place], [address] Globulin (S) [Mass/Vol] 4.1 g/dL Normal 2.2-4.2 [facility] Comment on above: Performed By: #### L 506.1000, L500.4100, L500.4050, L509.6000, L100.0100 ####[facility] [address] [place], [address] Glucose [Mass/Vol] 281 mg/dL High 74-106 [facility] Comment on above: Result Comment: Gluc ose result greater than or equal to 200 mg/dLsuggests DIABETES MELLITUS per A.D.A. criteria. Performed By: #### L 506.1000, L500.4100, L500.4050, L509.6000, L100.0100 ####[facility] [address] [place], [address] Potassium [Moles/Vol] 4.6 mmol/L Normal 3.5-5.1 [facility] Comment on above: Performed By: #### L 506.1000, L500.4100, L500.4050, L509.6000, L100.0100 ####[facility] [address] [place], [address] Sodium [Moles/Vol] 137 mmol/L Normal 136-145 [facility] Comment on above: Performed By: #### L 506.1000, L500.4100, L500.4050, L509.6000, L100.0100 ####[facility] [address] [place], [address] T PROT 7.4 g/dL Normal 6.4-8.2 [facility] Comment on above: Performed By: #### L 506.1000, L500.4100, L500.4050, L509.6000, L100.0100 ####[facility] [address] [place], [address] Urea nitrogen [Mass/Vol] 16 mg/dL Normal 7-18 [facility] Comment on above: Performed By: #### L 506.1000, L500.4100, L500.4050, L509.6000, L100.0100 ####[facility] [address] [place], [address] Eosinophil percentageOrdered By: Lisseth Peñaloza on 08-26-2024 Eosinophils/100 WBC (Bld) 1.0 % 0-5 [facility] Erythrocyte distribution wid th ratioOrdered By: Lisseth Peñaloza on 08-26-2024 Erythrocyte distribution width (RBC) [Ratio] 14.3 % 11.6-14.6 [facility] Erythrocyte distribution wid th standard deviationOrdered By: Lisseth Peñaloza on 08-26-2024 Erythrocyte distribution width (RBC) [Ratio] 47.9 fl High 35.1-43.9 [facility] Glomerular filtration rate ( GFR) estimationOrdered By: Lisseth Peñaloza on 08-26-2024 GFR/1.73 sq M.predicted among non-blacks MDRD (S/P/Bld) [Vol rate/Area] 72 mL/min/{1.73_m2} >60 [facility] Comment on above: Non- GFR Calc Glucose measurementOrdered B y: Lisseth Peñaloza on 08-26-2024 Glucose [Mass/Vol] 281 mg/dL High 74-106 [facility] Comment on above: Glucose result great er than or equal to 200 mg/dLsuggests DIABETES MELLITUS per A.D.A. criteria. Hematocrit Auto (Bld) [Volum e fraction]Ordered By: Lisseth Peñaloza on 08-26-2024 Hematocrit (Bld) [Volume fraction] 38.6 % 37-47 [facility] Hemoglobin measurementOrdere d By: Lisseth Peñaloza on 08-26-2024 Hemoglobin (Bld) [Mass/Vol] 12.2 g/dL 12.0-15.0 [facility] High density lipoprotein (HD L) measurementOrdered By: Lisseth Peñaloza on 08-26-2024 Cholesterol in HDL [Mass/Vol] 54 mg/dL >40 [facility] Comment on above: The drugs N-Acetylcy steine and Metamizole may falsely depress this assay. Reference Range HDL <40 mg/dL Low HDL Cholesterol HDL >or= 60 mg/dL High HDL Cholesterol High density lipoprotein (HDL) measurement 54 mg/dL >40 [facility] Immature granulocytes/100 WB C Auto (Bld)Ordered By: Lisseth Peñaloza on 08-26-2024 Immature granulocytes/100 WBC (Bld) 0.400 % 0.0-0.9 [facility] Comment on above: IG% - Immature Granu locytes (promyelocytes, myelocytes and metamyelocytes) > 1% indicates that a LEFT SHIFT is Present. Laboratory - Chemistry and C hemistry - challengeOrdered By: Lisseth Peñaloza on 08-26-2024 AST [Catalytic activity/Vol] 19 U/L 15-37 [facility] Lipid Profileon 08-26-2024 Cholesterol [Mass/Vol] 155 mg/dL Normal 200 [facility] Comment on above: Result Comment: <200 mg/dL Desirable 200-240 mg/dL Borderline >240 mg/dL High Risk Performed By: #### L 506.1000, L500.4100, L500.4050, L509.6000, L100.0100 ####[facility] [address] [place], [address] Cholesterol in HDL [Mass/Vol] 54 mg/dL Normal [facility] Comment on above: Result Comment: The drugs N-Acetylcysteine and Metamizole may falselydepress this assay. Reference Range HDL <40 mg/dL Low HDL Cholesterol HDL >or= 60 mg/dL High HDL Cholesterol Performed By: #### L 506.1000, L500.4100, L500.4050, L509.6000, L100.0100 ####[facility] [address] [place], [address] Cholesterol in LDL [Mass/Vol] 81 mg/dL Normal 0-130 [facility] Comment on above: Performed By: #### L 506.1000, L500.4100, L500.4050, L509.6000, L100.0100 ####[facility] [address] [place], [address] Cholesterol in VLDL [Mass/Vol] 20 mg/dL Normal 5-40 [facility] Comment on above: Performed By: #### L 506.1000, L500.4100, L500.4050, L509.6000, L100.0100 ####[facility] [address] [place], [address] Triglyceride [Mass/Vol] 99 mg/dL Normal [facility] Comment on above: Result Comment: The drugs N-Acetylcysteine and Metamizole may falselydepress this assay.Serum Triglycerides Reference Interval Normal <150 mg/dL Borderline high 150 - 199 mg/dL High 200 - 499 mg/dL Very High > or = 500 mg/dL Performed By: #### L 506.1000, L500.4100, L500.4050, L509.6000, L100.0100 ####[facility] [address] [place], [address] Low density lipoprotein (LDL ) cholesterol measurementOrdered By: Lisseth Peñaloza on 08-26-2024 Cholesterol in LDL [Mass/Vol] 81 mg/dL 0-130 [facility] Low density lipoprotein (LDL) cholesterol measurement 81 mg/dL 0-130 [facility] MCV (mean corpuscular volume ) determinationOrdered By: Lisseth Peñaloza on 08-26-2024 MCV (RBC) [Entitic vol] 91.5 fL 81-99 [facility] Mean corpuscular hemoglobin (MCH) determinationOrdered By: Lisseth Peñaloza on 08-26-2024 MCH (RBC) [Entitic mass] 28.9 pg 27.0-32.0 [facility] Mean corpuscular hemoglobin concentration (MCHC) determinationOrdered By: Lisseth Peñaloza on 08-26-2024 MCHC (RBC) [Mass/Vol] 31.6 g/dL Low 32-36 [facility] Mean platelet volume determi nationOrdered By: Lisseth Peñaloza on 08-26-2024 Platelet mean volume (Bld) [Entitic vol] 10.9 fL 6.2-12.0 [facility] Microalb:Creat Ratio,Random URon 08-26-2024 Creatinine [Mass/Vol] 59.50 mg/dL Normal NO RAN GE EST. [facility] Comment on above: Performed By: #### L 502.0250 ####[facility] [address] [place], [place], [address] MALB:CRE 10.8 mg/g CRE Normal <30 mg/g CRE [facility] Comment on above: Performed By: #### L 502.0250 ####[facility] [address] [place], [place], [id number] MICROALBUMIN,UR 6.4 mg/L Normal NO RANGE EST. [facility] Comment on above: Performed By: #### L 502.0250 ####[facility] [address] [place], [place], [address] Monocyte percentageOrdered B y: Lisseth Peñaloza on 08-26-2024 Monocytes/100 WBC (Bld) 4.5 % 0-10 [facility] Neutrophil percentageOrdered By: Lisseth Peñaloza on 08-26-2024 Neutrophils/100 WBC (Bld) 75.9 % High 47-70 [facility] No Panel InformationOrdered By: Lisseth Peñaloza on 08-26-2024 19 U/L 15-37 [facility] Nucleated red blood cell per centageOrdered By: Lisseth Peñaloza on 08-26-2024 Nucleated RBC/100 WBC (Bld) [Ratio] 0 % 0-5 [facility] Platelet countOrdered By: Billy Peñaloza on 08-26-2024 Platelets (Bld) [#/Vol] 197 10*3/uL 150-450 [facility] Potassium measurementOrdered By: Lisseth Peñaloza on 08-26-2024 Potassium [Moles/Vol] 4.6 mmol/L 3.5-5.1 [facility] RBC Auto (Bld) [#/Vol]Ordere d By: Lisseth Peñaloza on 08-26-2024 RBC (Bld) [#/Vol] 4.22 10*6/uL 4.2-5.4 [facility] Serum anion gap measurementO rdered By: Lisseth Peñaloza on 08-26-2024 Anion gap [Moles/Vol] 6 mmol/L 5-15 [facility] Serum globulin measurementOr dered By: Lisseth Peñaloza on 08-26-2024 Globulin (S) [Mass/Vol] 4.1 g/dL 2.2-4.2 [facility] Serum or plasma alanine guzman otransferase (ALT) measurementOrdered By: Lisseth Peñaloza on 08-26-2024 ALT [Catalytic activity/Vol] 31 U/L 13-56 [facility] Serum or plasma albumin johnathon urement (mass/volume)Ordered By: Lisseth Peñaloza on 08-26-2024 Albumin [Mass/Vol] 3.3 g/dL 3.2-5.0 [facility] Serum or plasma alkaline tabitha sphatase measurementOrdered By: Lisseth Peñaloza on 08-26-2024 ALP [Catalytic activity/Vol] 165 U/L High 45-117 [facility] Serum or plasma calcium johnathon urement (mass/volume)Ordered By: Lisseth Peñaloza on 08-26-2024 Calcium [Mass/Vol] 9.3 mg/dL 8.5-10.1 [facility] Serum or plasma cholesterol measurement (mass/volume)Ordered By: Lisseth Peñaloza on 08-26-2024 Cholesterol [Mass/Vol] 155 mg/dL <200 [facility] Comment on above: <200 mg/dL Desirable 200-240 mg/dL Borderline >240 mg/dL High Risk Serum or plasma cortisol tarun surement (mass/volume)Ordered By: Lisseth Peñaloza on 08-26-2024 Cortisol [Mass/Vol] 0.60 ug/dL Low 3.44-22.45 [facility] Comment on above: Adult (AM) 5.27 - 22 .45 ug/dL Adult (PM) 3.44 - 16.76 ug/dL Serum or plasma creatinine m easurement (mass/volume)Ordered By: Lisseth Peñaloza on 08-26-2024 Creatinine [Mass/Vol] 0.86 mg/dL 0.55-1.02 [facility] Comment on above: The validity of the calculated GFR & GFRAA in patients over 70 years has not been determined. Clinical correlation is essential. Serum or plasma urea nitroge n measurement (mass/volume)Ordered By: Lisseth Peñaloza on 08-26-2024 Urea nitrogen [Mass/Vol] 16 mg/dL 7-18 [facility] Sodium levelOrdered By: Anai Peñaloza on 08-26-2024 Sodium [Moles/Vol] 137 mmol/L 136-145 [facility] Total proteinOrdered By: Kenney Peñaloza on 08-26-2024 Protein [Mass/Vol] 7.4 g/dL 6.4-8.2 [facility] Triglycerides measurementOrd ered By: Lisseth Peñaloza on 08-26-2024 Triglyceride [Mass/Vol] 99 mg/dL <199 [facility] Comment on above: The drugs N-Acetylcy steine and Metamizole may falsely depress this assay.Serum Triglycerides Reference Interval Normal <150 mg/dL Borderline high 150 - 199 mg/dL High 200 - 499 mg/dL Very High > or = 500 mg/dL Urine creatinine measurement (mass/volume)Ordered By: Lisseth Peñaloza on 08-26-2024 Creatinine (U) [Mass/Vol] 59.50 mg/dL NO RANGE EST. [facility] Very low density lipoprotein (VLDL) cholesterol measurementOrdered By: Lisseth Peñaloza on 08-26-2024 Very low density lipoprotein (VLDL) cholesterol measurement 20 mg/dL 5-40 [facility] Vitamin D,25 Hydroxyon 08-26 Vitamin D 25-OH 67.7 ng/mL Normal [facility] Comment on above: Result Comment: Sabrina min D 25(OH) Status Range Deficiency <20 ng/mL (50nmol/L) Insufficiency 20 - 30 ng/mL (50 - 75 nmol/L) Sufficiency 30 - 100 ng/mL (75 - 250 nmol/L) Toxicity >100 ng/mL (>250 nmol/L) Performed By: #### L 506.1000, L500.4100, L500.4050, L509.6000, L100.0100 ####[facility] [address] [place], [address] White blood cell (WBC) count Ordered By: Lisseth Peñaloza on 08-26-2024 WBC (Bld) [#/Vol] 7.3 10*3/uL 4.4-11.0 [facility] Internal Medicine Office Vis ito 08-04-2024 Internal Medicine Office Visit Normal [facility] Internal Medicine Office Vis iton 05-29-2024 Internal Medicine Office Visit Normal [facility] Echo Complete W/ Contraston 05-26-2024 Echo Complete W/ Contrast [facility] 12 Lead EKG performed by [facility] on 05-06-2024 12 Lead EKG performed by [facility] Cardiology Visit Reporton Cardiology Visit Report Normal [facility] Yandel 04-10-2024 SERA Telephone ([facility]) JORGE AMICHELLE S ([id number]) 1965 F Date Time Provider Department 04/10/24 HOMAR VASQUES [facility] During your visit today, we recorded the following information about you: Maria A Martinez 04/10/2024 3:32 PM Signed Patient's insurance no longer covers office. Removing CFM from profile Marai A Allergies As of Date: 04/10/2024 Noted [...] for 270 days. - flash glucose sensor (Soup.ioSTYLE LANCE 2 SENSOR) kit Use to check blood sugar before meals and at bedtime - Docusate Sodium (STOOL SOFTENER) 100 mg tab Take 1 capsule by mouth twice daily as needed - acetylcyst/lkbjeyV87/le vomefol (METAFOLBIC PLUS ORAL) Take by mouth. - cetirizine (ZYRTEC) 10 mg tablet Take 1 tablet by mouth once daily as needed (for itching, sneezing or runny nose). - losartan (COZAAR) 25 mg tablet (Discontinued) Take 1 tablet by mouth once daily. 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] 04/03/2018 Cystocele with prolapse [N81.4] 11/12/2018 Urgency of urination [R39.15] 11/12/2018 Mixed incontinence [N39.46] 11/12/2018 Obesity, Class II, BMI 35-39.9 [E66.9] 01/22/2023 Hyperlipidemia, mixed [E78.2] 05/20/2023 Encounter Status:Closed by MARIA [facility]) JULESMICHELLE ([id number]) 1965 F Date Time Provider Department 04/03/24 WILLIAMS RUBIN [facility] During your visit today, we recorded the following information about you: Radha Bradley 04/03/2024 10:10 AM Signed No Show Documentation Michelle Jules no showed for an appointment on 04.02.24 with Sonia Carrera RP at [facility]. She was scheduled for follow up. I [...] by mouth twice daily as needed - acetylcyst/hmanthH05/le vomefol (METAFOLBIC PLUS ORAL) Take by mouth. - cetirizine (ZYRTEC) 10 mg tablet Take 1 tablet by mouth once daily as needed (for itching, sneezing or runny nose). - losartan (COZAAR) 25 mg tablet (Discontinued) Take 1 tablet by mouth once daily. 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] 04/03/2018 Cystocele with prolapse [N81.4] 11/12/2018 Urgency of urination [R39.15] 11/12/2018 Mixed incontinence [N39.46] 11/12/2018 Obesity, Class II, BMI 35-39.9 [E66.9] 01/22/2023 Hyperlipidemia, mixed [E78.2] 05/20/2023 Letter Text Encounter Status:Closed by RADHA BRADLEY on 04/03/24 Normal [facility] CNOVon 02-26-2024 CNOV Office Visit (AGCFM) MICHELLE JULES ([id number]) 1965 F Date Time Provider Department 02/26/24 2:00 PM [facility] During your visit today, we recorded the following information about you: Temperature Pulse Respiration Blood pressure 97.6 degrees 72/minute 16/minute 125/78 Weight Height 110.7 kg 1.753 m Sonia Carrera [facility] 03/02/2024 10:19 AM Signed REASON FOR CONSULT: [...] no pitting edema in legs noted per mortgage or loan underwriter Regimen as below Confirms insulin pen goes [...] gym - cost limits option Working on Vocollect application Past medical, family and social history reviewed and updated. Payor: [place] MEDICAID / Plan: [facility] MEDICAID [facility] / Product Type: Medicaid / REVIEW OF [...] (H) 4.3 - 5.6 % Final Comment: [place] Diabetes Association guidelines indicate that patients with [...] issues of diabetes complications and monitoring required, hypoglycemic/hyperglyce abbey symptoms, and medication-specific side effects and monitoring - limit carb-based options; encouraged higher protein intake - LIPID PANEL BASIC - ALBUMIN/CREATININE RATIO, URINE 2. Uses self-applied continuous glucose monitoring device - ICD9: V49.89, ICD10: Z97.8 Encouraged ongoing use - bring reader to next appt 3. Diabetes education, encounter for - ICD9: V65.49, ICD10: Z71.89 - encouraged breakfast based breakfast - complete application for Vocollect 4. Encounter for medication counseling - ICD9: V65.49, ICD10: Z71.89 Reviewed administration steps for trulicity, pt able to demo with first injection 5. Preventative health care - ICD9: V70.0, ICD10: Z00.00 -schedule mammogram and colonoscopy 6. Complex care coordination - ICD9: V65.49, ICD10: Z71.89 - message sent to provider and rn home care regarding f (more content not included)... Normal [facility] ED NOTEon 02-24-2024 ED NOTE HNO ID: [id number] Author: SILVANA TORRES RN Service: Emergency Medicine Author Type: Registered [...] DATE: February 25, 2024 TIME: 7:17 PM [facility] ED PROV NOTEon 02-24-2024 ED PROV NOTE HNO ID: [id number] Author: MARYSOL MCCLELLAN MD Service: Emergency Medicine Author Type: [...] EGD 09/03/13: INSERT DUAL CHAMBER ICD Comment: pacemaker/defibulator 10/22/06: LAPAROSCOPIC APPENDECTOMY -: PAST SURGICAL HISTORY OF; Right Comment: ganglion cyst 2016: PAST SURGICAL HISTORY OF; Left Comment: cyst removed from left foot 03/12/2018: REMOVEANDREPLACE ICD PULSE GEN MULTI LEAD 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 Neurological: Negative for dizziness and headaches. Psychiatric/Behavioral: Negative for self-injury and suicidal ideas. All [...] sounds: Suma (more content not included)... Normal [facility] CNPNon 02-20-2024 [facility] Telephone ([facility]) MICHELLE JULES ([id number]) 1965 F Date Time Provider Department 02/20/24 WILLIAMS RUBIN [facility] During your visit today, we recorded [...] willing to have the Victoza sent to [facility] but she can not pickling grader the med until Sat when she is here to see Dr. Carrera. She is also willing to change to Trulicity. She reports that without the Victoza her sugars are running between 200-300 and going higher every day. She is taking her Toujeo 90 units in the am and then Humalog 20 units with meals. Please advise. Sonia Carrera [facility] 02/25/2024 9:25 AM Signed Changing victoza to trulicity - 1.5 mg weekly. She can start any day of the week. Changing as this may help with better SMBG control and weight loss vs victoza. Monitor for N/V/D/C. Injection is slightly different. We can mychart message her a video or show at pharmd appt (pt has not been actively using mychart however). Big difference between this and victoza is it is once WEEKLY not daily. Attempted telephone outreach to pt - unable to reach. [facility] rn home care who works with pt. Please notify if possible or can discuss with her at pharmd appt. Please let me know if you need anything else. Sonia Carrera [facility] Sonia Carrera [facility] 02/25/2024 9:25 AM Signed Addended by: SONIA [...] different number yesterday. Phone number now updated. [phone]. It is not her phone but she has access to it. Her phone number is not on. I instructed Michelle to pickling grader her Trulicity and bring it to her appt so that Dr. Carrera can instruct her on how to use it. Pt made aware that this is a weekly injection and not a daily injection. She agreed to pickling grader the script prior to her appt. She [...] (more content not included)... Normal [facility] MICHELLE JULES ([id number]) 1965 F Date Time Provider Department 02/12/24 WILLIAMS RUBIN [facility] During your visit today, we recorded the following information about you: Karthik Cazares 02/12/2024 3:05 PM Signed The patient/caregiver contacted the office, requesting refills of liraglutide (VICTOZA) 0.6 mg/ 0.1 ml subcutaneous pen injector . Patient prefers prescriptions to be e prescribed to [facility] [address] - [place] [address] - [address] - [phone] Last Office Visit Date: 01/29/[address] [facility] Visit: Visit date not found Future Appointment: [...] by mouth twice daily as needed - acetylcyst/pvipfrP78/le vomefol (METAFOLBIC PLUS ORAL) Take by mouth. - furosemide (LASIX) 40 mg tablet Take 1 tablet by mouth once daily. - cetirizine (ZYRTEC) 10 mg tablet Take 1 tablet by mouth once daily as needed (for itching, sneezing or runny nose). - losartan (COZAAR) 25 mg tablet (Discontinued) Take 1 tablet by mouth once daily. - blood sugar diagnostic (LaunchTrack ULTRA TEST) test strip USE TO TEST BLOOD SUGAR THREE TIMES A DAY - aspirin, enteric coated (ECOTRIN LOW STRENGTH) 81 mg EC tablet Take 1 tablet by mouth once daily. - atorvastatin (LIPITOR) 10 mg tablet Take 1 tablet by mouth once daily. - carvedilol (COREG) 25 mg tablet Take 1 tablet by mouth twice daily. Facility-Administered Medications as of 02/13/2024 - sodium chloride [...] right foot [M67.471] 09/09/2015 Biventricular ICD (implantable cardioverter-def*2015 Uncontrolled type 2 diabetes mellitus with diab*12/21/2015 [...] (more content not included)... Normal [facility] CNOVon 01-29-2024 CNOV Office Visit (AGCFM) MICHELLE JULES ([id number]) 1965 F Date Time Provider Department 01/29/24 11:20 AM PH[facility] D [facility]IC [facility] During your visit today, we recorded the following information about you: Temperature Pulse Blood pressure Weight 96.6 degrees 90/minute 113/69 109.3 kg Height 1.753 m Sonia Carrera, [facility] 01/29/2024 1:57 PM Signed REASON FOR CONSULT: [...] cost limits option Going on trip to [place] end of this month Follows Past medical, family and social history reviewed and updated. Payor: [place] MEDICAID / Plan: [facility] MEDICAID [facility] / Product Type: Medicaid / REVIEW OF [...] (A) 4.3 - 5.6 % Final Comment: Location:[facility], [address] [place] [address], [facility] Point of care (POC) Hemoglobin A1c (HGBA1C) [...] specific diabetes management situations: The POC device manufacturer's service representative provides a normal range of 4.2% to 6.5% for the HGBA1C POC test. However, the [place] Diabetes Association guidelines indicate that patients with [...] neuropathy, with long-term current use of insulin ([facility]) - ICD9: 250.60, 357.2, V58.67, ICD10: E11.40, [...] (more content not included)... Normal [facility] HbA1c (Bld)on 01-29-2024 Average glucose Estimated from glycated hemoglobin (Bld) [Mass/Vol] 246 mg/dL Normal [facility] Comment on above: Order Comment: Maty javed Type: BLOOD SPECIMENOrdering Facility: [facility] Address: [address] [place] [address] Result Comment: eAG: (Estimated average glucose) is a calculated value from HgbA1c and is motor vehicle field representative of the average blood glucose level in the last 2-3 month period. Performed By: #### 5 5454-3 ####[facility] LABCLIA [id number] [facility] [id number] [address] [place] HbA1c (Bld) [Mass fraction] 10.2 % High 4.3-5.6 [facility] Comment on above: Order Comment: Maty javed Type: BLOOD SPECIMENOrdering Facility: [facility] Address: [address] [place] [address] Result Comment: [place] Diabetes Association guidelines indicate that patients with HgbA1c in the range 5.7-6.4% are at increased risk for development of diabetes, and intervention by lifestyle modification may be beneficial. HgbA1c greater or equal to 6.5% is considered diagnostic of diabetes. Performed By: #### 5 5454-3 ####[facility] LABCLIA [id number] [facility] [id number] [place], [place] [id number] [place] CNOVon 12-24-2023 CNOV Office Visit (AGC) MICHELLE JULES ([id number]) 1965 F Date Time Provider Department 12/24/23 1:40 PM MANNY SHIELDS [facility] During your visit today, we recorded the following information about you: Temperature Pulse Respiration Blood pressure 97.6 degrees 77/minute 16/minute 119/63 Weight Height 108.2 kg 1.753 m Manny Shields MD 12/30/2023 10:29 AM Signed [facility] Director Of Payroll Center / [address] [place] [address] Visit Date: December 23, 2023 Name: Michelle Jules Date of : 1965 MRN/E #: [id number] Chief Complaint: No chief complaint on file. 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 furosemide (LASIX) 40 mg tablet Take 1 tablet by mouth once daily. cetirizine (ZYRTEC) 10 mg tablet Take 1 tablet by mouth once daily as needed (for itching, sneezing or runny nose). blood sugar diagnostic (Broadcast [employer] Graphics Display SystemUCH ULTRA TEST) test strip USE TO TEST [...] (more content not included)... Normal [facility] HEMOGLOBIN A1C (POC)on 12-23 HbA1c (Bld) [Mass fraction] 10.7 % Abnormal 4.3 - 5.6 % [facility] Comment on above: Location:[facility], [address] [place] [address], [address] Point of care (POC) Hemoglobin A1c (HGBA1C) [...] specific diabetes management situations: The POC device manufacturer's service representative provides a normal range of 4.2% to 6.5% for the HGBA1C POC test. However, the [place] Diabetes Association guidelines indicate that patients with [...] Interpretation and review of laboratory results Abnormal [facility] CNPNon [facility] MICHELLE JULES ([id number]) 1965 F Date Time Provider Department 12/05/23 SONIA CARRERA [facility] During your visit today, we recorded the following information about you: Cristiane Montanez 12/05/2023 2:33 PM Signed ----- Message from Tayler Chin sent at 12/05/2023 2:09 PM EDT ----- [address] [place] [address]/[facility]// Homar Vasques MD / [Callback-reschedule pharmacist appointment] Subject Line Format: Medicine / Homar Vasques MD / [Callback-reschedule pharmacist appointment] Select Department Name For Pool Routing Assistance: [facility] CFM => AG [facility] CFM APPT CTR TRIAGE POOL [[id number]] Patient: Michelle Jules Date of : 1965 Primary Care Provider: Homar Vasques MD The reason I am contacting the office is: Call Back - Patient is requesting a call back from PCP Office about rescheduling appointment for 12/05/23 at 2:00pm with the pharmacist. Person calling if other than patient: N/A Best contact number: [phone] Thank you, Tayler Elsy December 05, 2023 2:09 PM Cristiane Montanez [...] by mouth twice daily as needed - acetylcyst/suwxqsC97/le vomefol (METAFOLBIC PLUS ORAL) Take by mouth. - furosemide (LASIX) 40 mg tablet Take 1 tablet by mouth once daily. - cetirizine (ZYRTEC) 10 mg tablet Take 1 tablet by mouth once daily as needed (for itching, sneezing or runny nose). - losartan (COZAAR) 25 mg tablet (Discontinued) Take 1 tablet by mouth once daily. - blood sugar diagnostic (Broadcast Grade Weather [employer] Brand[employer] Graphics Display SystemUCH ULTRA TEST) test strip USE TO TEST BLOOD SUGAR THREE TIMES A DAY - aspirin, enteric coated (ECOTRIN LOW STRENGTH) 81 mg EC tablet Take 1 tablet by mouth once daily. - atorvastatin (LIPITOR) 10 mg tablet Take 1 tablet by mouth once daily. - carvedilol (COREG) 25 mg tablet Take 1 tablet by mouth twice daily. 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 Normal [facility] CNPN Telephone ([facility]) MICHELLE JULES ([id number]) 1965 F Date Time Provider Department 12/05/23 SONIA CARRERA [facility] During your visit today, we recorded the following information about you[facility] 2[facility]20 PM Signed Patient no showed appt with pharmd today. Attempted telephone outreach - unable to reach. A1c due at this time; order placed. Please have patient obtain and reschedule with pharmd thanks! Hemoglobin A1C (POCT) Date Value Ref Range Status 08/30/2023 13.7 (A) 4.3 - 5.6 % Final Comment: Location:[facility] Director Of Payroll Center, [address] [place] [address], [facility] Point of care (POC) Hemoglobin A1c (HGBA1C) [...] specific diabetes management situations: The POC device manufacturer's service representative provides a normal range of 4.2% to 6.5% for the HGBA1C POC test. However, the [place] [employer] guidelines indicate that patients with [...] of insulin (HCC) [E11.40, Z79.4] Order(s):HEMOGLOBIN A1C [LSYES7S] Order #: [id number] FUTURE Prescriptions as of 12/05/2023 - insulin [...] by mouth twice daily as needed - acetylcyst/nwrrhwT48/le vomefol (METAFOLBIC PLUS ORAL) Take by mouth. - furosemide (LASIX) 40 mg tablet Take 1 tablet by mouth once daily. - cetirizine (ZYRTEC) 10 mg tablet Take 1 tablet by mouth once daily as needed (for itching, sneezing or runny nose). - losartan (COZAAR) 25 mg tablet (Discontinued) Take 1 tablet by mouth once daily. - blood sugar diagnostic (Broadcast Grade Weather [employer] Brand[employer] Graphics Display SystemUCH ULTRA TEST) test strip USE TO TEST BLOOD SUGAR THREE TIMES A DAY - aspirin, enteric coated (ECOTRIN LOW STRENGTH) 81 mg EC tablet Take 1 tablet by mouth once daily. - atorvastatin (LIPITOR) 10 mg tablet Take 1 tablet by mouth once daily. - carvedilol (COREG) 25 mg tablet Take 1 tablet by mouth twice daily. 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 Normal [facility]) MICHELLE JULES ([id number]) 1965 F Date Time Provider Department 11/27/23 WILLIAMS RUBIN [facility] During your visit today, we recorded the following information about you: Eileen Ferrera 11/27/2023 3:05 PM Signed Please review and complete. Will be placed in your in box.Thank you Specialty called 14.[address] Aggarwal to sign [...] by mouth twice daily as needed - acetylcyst/lefcjfQ16/le vomefol (METAFOLBIC PLUS ORAL) Take by mouth. - furosemide (LASIX) 40 mg tablet Take 1 tablet by mouth once daily. - cetirizine (ZYRTEC) 10 mg tablet Take 1 tablet by mouth once daily as needed (for itching, sneezing or runny nose). - losartan (COZAAR) 25 mg tablet (Discontinued) Take 1 tablet by mouth once daily. - blood sugar diagnostic (LaunchTrack ULTRA TEST) test strip USE TO TEST BLOOD SUGAR THREE TIMES A DAY - aspirin, enteric coated (ECOTRIN LOW STRENGTH) 81 mg EC tablet Take 1 tablet by mouth once daily. - atorvastatin (LIPITOR) 10 mg tablet Take 1 tablet by mouth once daily. - carvedilol (COREG) 25 mg tablet Take 1 tablet by mouth twice daily. 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] 04/03/2018 Cystocele with prolapse [N81.4] 11/12/2018 Urgency of urination [R39.15] 11/12/2018 Mixed incontinence [N39.46] 11/12/2018 Obesity, Class II, BMI 35-39.9 [E66.9] 01/22/2023 Hyperlipidemia, mixed [E78.2] 05/20/2023 Encounter Status:Closed by EILEEN FERRERA on 11/27/23 [facility] 11-15-2023 CNPN Telephone ([facility] ) MICHELLE JULES ([id number]) 1965 F Date Time Provider Department 11/15/23 VERONICA CHI [facility] During your visit today, we recorded the following information about you: Veronica Chi, RN 11/15/2023 11:26 AM [facility] contacted patient regarding referral for screening colonoscopy. Patient states that she has had her previous scopes done at [facility], and is going to speak with her [...] by mouth twice daily as needed - acetylcyst/uauaeqR90/le vomefol (METAFOLBIC PLUS ORAL) Take by mouth. - furosemide (LASIX) 40 mg tablet Take 1 tablet by mouth once daily. - cetirizine (ZYRTEC) 10 mg tablet Take 1 tablet by mouth once daily as needed (for itching, sneezing or runny nose). - losartan (COZAAR) 25 mg tablet (Discontinued) Take 1 tablet by mouth once daily. - blood sugar diagnostic (SimpliFieldTOUCH ULTRA TEST) test strip USE TO TEST BLOOD SUGAR THREE TIMES A DAY - aspirin, enteric coated (ECOTRIN LOW STRENGTH) 81 mg EC tablet Take 1 tablet by mouth once daily. - atorvastatin (LIPITOR) 10 mg tablet Take 1 tablet by mouth once daily. - carvedilol (COREG) 25 mg tablet Take 1 tablet by mouth twice daily. 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] 04/03/2018 Cystocele with prolapse [N81.4] 11/12/2018 Urgency of urination [R39.15] 11/12/2018 Mixed incontinence [N39.46] 11/12/2018 Obesity, Class II, BMI 35-39.9 [E66.9] 01/22/2023 Hyperlipidemia, mixed [E78.2] 05/20/2023 Encounter Status:Closed by VERONICA CHI on 11/15/23 [facility] 11-14-2023 [facility] Office Visit ([facility]) MICHELLE JULES ([id number]) 1965 F Date Time Provider Department 11/14/23 1:20 PM [facility] D [facility] During your visit today, we recorded the following information about you: Temperature Pulse Blood pressure Weight 97.3 degrees 84/minute 119/71 108.4 kg Height 1.753 m Sonia Carrera [facility] 11/14/2023 2:14 PM Signed REASON FOR CONSULT: [...] of diabetes complications and monitoring required and hypoglycemic/hyperglyce abbey symptoms - minimize pop/tea; substitutions provided 2. [...] participate in this patient's care Sonia Carrera [facility] The majority of the pharmacy visit (> 50%) was spent counseling and/or coordinating care for the patient. I spent a total of 25 minutes on the date of the service which included preparing to see the patient, xzxv-bf-nnvw patient care, completing clinical documentation, and counseling and educating the patient/family/caregive Sonia Davis [facility] (more content not included)... Normal [facility] ([facility]) MICHELLE JULES ([id number]) 1965 F Date Time Provider Department 11/05/23 WILLIAMS RUBIN [facility] During your visit today, we recorded the following information about you: Eileen Ferrera Joaquin 11/05/2023 2:22 PM Signed Please review and complete. Will be placed in your temp file.Thank you Williams Rubin MD 11/07/2023 3:47 PM Signed Completed and placed in [facility] Room. Williams Rubin MD Allergies As of [...] by mouth twice daily as needed - acetylcyst/ksgtcyS40/le vomefol (METAFOLBIC PLUS ORAL) Take by mouth. - furosemide (LASIX) 40 mg tablet Take 1 tablet by mouth once daily. - cetirizine (ZYRTEC) 10 mg tablet Take 1 tablet by mouth once daily as needed (for itching, sneezing or runny nose). - losartan (COZAAR) 25 mg tablet (Discontinued) Take 1 tablet by mouth once daily. - blood sugar diagnostic (LaunchTrack ULTRA TEST) test strip USE TO TEST BLOOD SUGAR THREE TIMES A DAY - aspirin, enteric coated (ECOTRIN LOW STRENGTH) 81 mg EC tablet Take 1 tablet by mouth once daily. - atorvastatin (LIPITOR) 10 mg tablet Take 1 tablet by mouth once daily. - carvedilol (COREG) 25 mg tablet Take 1 tablet by mouth twice daily. 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] 04/03/2018 Cystocele with prolapse [N81.4] 11/12/2018 Urgency of urination [R39.15] 11/12/2018 Mixed incontinence [N39.46] 11/12/2018 Obesity, Class II, BMI 35-39.9 [E66.9] 01/22/2023 Hyperlipidemia, mixed [E78.2] 05/20/2023 Encounter Status:Closed by EILEEN FERRERA on 11/05/23 [facility] 10-31-2023 CAROLN Telephone ([facility]) MICHELLE JULES ([id number]) 1965 F Date Time Provider Department 10/31/23 HOMAR VASQUES [facility] During your visit today, we recorded the following information about you: Cristiane Montanez 10/31/2023 8:24 AM Signed Referral to GASTROENTEROLOGY entered into the [facility] portal on 10/31/2023. Confirmation number [id number]. Allergies As of Date: 10/31/2023 Noted Allergy [...] by mouth twice daily as needed - acetylcyst/fllvhhA44/le vomefol (METAFOLBIC PLUS ORAL) Take by mouth. - furosemide (LASIX) 40 mg tablet Take 1 tablet by mouth once daily. - cetirizine (ZYRTEC) 10 mg tablet Take 1 tablet by mouth once daily as needed (for itching, sneezing or runny nose). - losartan (COZAAR) 25 mg tablet (Discontinued) Take 1 tablet by mouth once daily. - blood sugar diagnostic (LaunchTrack ULTRA TEST) test strip USE TO TEST BLOOD SUGAR THREE TIMES A DAY - aspirin, enteric coated (ECOTRIN LOW STRENGTH) 81 mg EC tablet Take 1 tablet by mouth once daily. - atorvastatin (LIPITOR) 10 mg tablet Take 1 tablet by mouth once daily. - carvedilol (COREG) 25 mg tablet Take 1 tablet by mouth twice daily. 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] 04/03/2018 Cystocele with prolapse [N81.4] 11/12/2018 Urgency of urination [R39.15] 11/12/2018 Mixed incontinence [N39.46] 11/12/2018 Obesity, Class II, BMI 35-39.9 [E66.9] 01/22/2023 Hyperlipidemia, mixed [E78.2] 05/20/2023 Encounter Status:Closed by CRISTIANE MONTANEZ on 10/31/23 [facility] CNOVon 10-30-2023 CNOV Office Visit ([facility]) MICHELLE JULES ([id number]) 1965 F Date Time Provider Department 10/30/23 1:40 PM [facility] During your visit today, we recorded the following information about you: Temperature Blood pressure Weight Height 97.4 degrees 130/83 107.5 kg 1.753 m Sonia Carrera [facility] 10/30/2023 3:29 PM Signed REASON FOR CONSULT: [...] to metformin Payor: [place] [employer]ICA[employer] / Plan: [facility] MEDICA[place] [facility] / Product Type: Medicaid / 24 hour [...] of diabetes complications and monitoring required and hypoglycemic/hyperglyce abbey symptoms - minimize pop/tea 2. Uses self-applied continuous glucose monitoring device - ICD9: V49.89, ICD10: Z97.8 Encouraged ongoing us (more content not included)... Normal [facility] ICD REMOTE CHECKon 4 AV Delay Adaptive Paced Minimum (ms) 150 ms [facility] AV Delay Adaptive Sensed Minimum (ms) 130 ms [facility] AV Delay Paced (ms) 100 ms [facility] AV Delay Sensed (ms) 85 ms [facility] Carlos Alberto LV Pacing Amplitude (volts) 2.5 V [facility] Carlos Alberto LV Pacing Pulse Width (ms) 1.0 ms [facility] carlos alberto LV Sensing Amplitude (mvolts) 1.0 mV [facility] Carlos Alberto RA Pacing Amplitude (volts) 2.0 V [facility] Carlos Alberto RA Pacing Polarity BI [facility] Carlos Alberto RA Pacing Pulse Width (ms) 0.4 ms [facility] Carlos Alberto RA Sensing Amplitude (mvolts) 0.25 mV [facility] Carlos Alberto RA Sensing Polarity BI [facility] Carlos Alberto RV Pacing Amplitude (volts) 2.0 V [facility] Carlos Alberto RV Pacing Polarity BI [facility] Carlos Alberto RV Pacing Pulse Width (ms) 0.4 ms [facility] Carlos Alberto RV Sensing Amplitude (mvolts) 0.6 mV [facility] Carlos Alberto RV Sensing Polarity BI [facility] Detection Configuration (Vent) 2 - Zone [facility] FastVT_Detection Interval 333 ms [facility] FastVT_Therapy Configuration 2 ATP(s) + 6 Shock(s) [facility] ICD FastVT DetectionStatus ENABLED [facility] ICD-AMS EPISODES 170 {beats}/min [facility] ICD-ATP Episodes (Vent) 0 [facility] ICD-ATRIALFIBRILLATION 1107 [facility] ICD-ATRIALTACHYCARDIA 1107 [facility] ICD-Device Mfg BSX [facility] ICD-LEADIMPEDANCEATRIA L 507 ohm [facility] ICD-Percent Pacing (Atrial) 3 % [facility] ICD-Percent Pacing (Vent) 100 % [facility] ICD-Shocks Aborted (Vent) 0 [facility] [id number]-ONCFPREAB 0 [facility] ICD-SHOCKSABORTED 0 [facility] ICD-SHOCKSDELIVEREDVEN TRICULAR 0 [facility] ICD-Ventricular Fibrillation 0 [facility] ICD-VVDELAY_MS 20 ms [facility] Implant Date 03/12/2018 [facility] Lead Impedance (LV) 738 ohm [facility] Lead Impedance (RV) 517 ohm [facility] Lead Impedance High Voltage 77 ohm [facility] Lead1 Mfg [employer] [facility] Lead2 Mfg Guidant [facility] Lead3 Mfg Guidant [facility] Location RA [facility] Location LV [facility] Location RV [facility] Lower Rate (bpm) 50 {beats}/min [facility] LV PACING % 100 % [facility] Max Sensor Rate (bpm) 130 {beats}/min [facility] MDT_PROG_TACHY_ZONE_DE TECTIONS_STATUS ENABLED [facility] Model G150 DYNAGEN RESISTOR INSPECTOR-D [facility] Model 0292 Endotak Relianc e 4-Site SG [facility] Model 4135 Dextrus [facility] Model 4542 EasyTrak 2 IS-1 , 80 cm [facility] Pacing Mode DDDR [facility] Serial Number [id number] [facility] Serial Number [id number] [facility] Serial Number [id number] [facility] Serial Number [id number] [facility] Test Charge Energy 21 J [facility] Test Charge Time 11.2 s [facility] Therapy Status (Vent) Enabled [facility] Thresh LV Capture Amplitude (volts) 1.5 V [facility] Thresh LV Capture Duration (ms) 1.0 ms [facility] Thresh RA Capture Amplitude (volts) 0.5 V [facility] Thresh RA Capture Duration (ms) 0.4 ms [facility] Thresh RV Capture Amplitude (VOLTS) 0.7 V [facility] Thresh RV Capture Duration (MS) 0.4 ms [facility] Tracking Rate (bpm) 130 {beats}/min [facility] VF Zone Detection Interval 333 ms [facility] VF Zone Therapy Configuration 2 ATP(s) + 6 Shock(s) [facility] No Panel Informationon 10-21 BLANK _ [facility] ICD-ATRIALTACHYCARDIA 0 [facility] ICD-Fast Ventricular Tachycardia 0 [facility] Implant Date 09/03/2013 [facility] MICHELLE JULES ([id number]) 1965 F Date Time Provider Department 10/10/23 WILLIAMS RUBIN [facility] During your visit today, we recorded [...] Fully Assessed Reason for Visit: Patient Question [8401] Cmt: New insulins Prescriptions as of 10/14/2023 [...] by mouth twice daily as needed - acetylcyst/nnuybbU80/le vomefol (METAFOLBIC PLUS ORAL) Take by mouth. - furosemide (LASIX) 40 mg tablet Take 1 tablet by mouth once daily. - cetirizine (ZYRTEC) 10 mg tablet Take 1 tablet by mouth once daily as needed (for itching, sneezing or runny nose). - losartan (COZAAR) 25 mg tablet (Discontinued) Take 1 tablet by mouth once daily. - blood sugar diagnostic (Broadcast Grade Weather [employer] Channel Branding Graphics Display SystemUCH ULTRA TEST) test strip USE TO TEST [...] mouth twice daily. 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] 04/03/2018 Cystocele with prolapse [N81.4] 11/12/2018 Urgency of urination [R39.15] 11/12/2018 Mixed incontinence [N39.46] 11/12/2018 Obesity, Class II, BMI 35-39.9 [E66.9] 01/22/2023 Hyperlipidemia, mixed [E78.2] 05/20/2023 Encounter Status:Closed by HOSSEIN ALEXANDER on 10/10/23 [facility] 09-19-2023 [facility] Telephone ([facility]) MICHELLE JULES ([id number]) 1965 F Date Time Provider Department 09/19/23 WILLIAMS RUBIN [facility] During your visit today, we recorded the following information about you: Maria A Velarde LPN 09/19/2023 10:52 AM Signed Prior authorization for Freestyle Lance 2 sensor has been submitted via [employer]. Awaiting determination. Allergies As of Date: 09/19/2023 [...] Fully Assessed Reason for Visit: Medication Authorization [6719] Cmt: Freestyle Lance 2 sensor Prescriptions as [...] by mouth twice daily as needed - acetylcyst/wcrcjxF28/le vomefol (METAFOLBIC PLUS ORAL) Take by mouth. - furosemide (LASIX) 40 mg tablet Take 1 tablet by mouth once daily. - cetirizine (ZYRTEC) 10 mg tablet Take 1 tablet by mouth once daily as needed (for itching, sneezing or runny nose). - losartan (COZAAR) 25 mg tablet (Discontinued) Take 1 tablet by mouth once daily. - blood sugar diagnostic (LaunchTrack ULTRA TEST) test strip USE TO TEST [...] mouth twice daily. Facility-Administered Medications as of 09/19/2023 - sodium chloride [...] right foot [M67.471] 09/09/2015 Biventricular ICD (implantable cardioverter-def*2015 Uncontrolled type 2 diabetes mellitus with diab*12/21/2015 Restless leg syndrome [G25.81] 02/09/2016 Peroneal tendinitis [M76.70] 07/12/2016 Pain in joint, ankle and foot [M25.579] 07/12/2016 Nonallergic rhinitis [J31.0] 04/03/2018 Cystocele with prolapse [N81.4] 11/12/2018 Urgency of urination [R39.15] 11/12/2018 Mixed incontinence [N39.46] 11/12/2018 Obesity, Class II, BMI 35-39.9 [E66.9] 01/22/2023 Hyperlipidemia, mixed [E78.2] 05/20/2023 Encounter Status:Closed by MARIA A VELARDE on 09/19/23 [facility] MICHELLE JULES ([id number]) 1965 F Date Time Provider Department 09/19/23 WILLIAMS RUBIN [facility] During your visit today, we recorded the following information about you: Maria A Velarde LPN 09/19/2023 10:58 AM Signed Prior authorization for Victoza has been submitted via telephone ([employer]). Reference # [id number]. Awaiting determination. Sonia Carrera [facility] 09/24/2023 10:51 AM Signed Reaching out to nursing to determine status of PA for victoza and CGM. Sonia Carrera [facility] Tamica Beatty LPN 10/01/2023 5:15 PM Signed I found the fax determinations under scanned documents. Nicci and Bebet[employer]ana[employer] state that a PA is not required at this time. Phone call to [employer] and they closed at 5:00. Phone call to patient and she states that she has not received them. Phone call to [facility] and their network is down. Sonia Carrera [facility] 10/02/2023 2:30 PM Signed Contacted patient - informed her to contact pharmacy to determine next steps within the next few days. Patient should be able to obtain medication and CGM. Provided nursing line if patient cannot receive. Appt with pharmD in 10/2023 - informed to bring supplies to next appt. Sonia Carrera [facility] Hemoglobin A1C (POCT) Date Value Ref Range Status 08/30/2023 13.7 (A) 4.3 - 5.6 % Final Comment: Location:[facility] Director Of Payroll Center, [address] [place] [address], [facility] Point of care (POC) Hemoglobin A1c (HGBA1C) [...] specific diabetes management situations: The POC device manufacturer's service representative provides a normal range of 4.2% to 6.5% for the HGBA1C POC test. However, the [place] [employer] guidelines indicate that patients with [...] 10/07/2023 10:18 AM Signed Phone call to [place]: I told them what [employer] said about the PA being covered and didn't require a PA. They then informed me that they were not processing it through [employer]. They were running it through [employer]. I gave them the patient's Medicaid information [...] by mouth twice daily as needed - acetylcyst/swqroeS88/le vomefol (METAFOLBIC PLUS ORAL) Take by mouth. - (more content not included)... Normal [facility] CNOVon 09-12-2023 [facility] Office Visit ([facility]) MICHELLE JULES ([id number]) 1965 F Date Time Provider Department 09/12/23 3:40 PM [facility] During your visit today, we recorded the following information about you: Temperature Blood pressure Weight Height 96.8 degrees 115/70 109.3 kg 1.753 m Sonia Carrera [facility] 09/13/2023 3:33 PM Signed REASON FOR CONSULT: [...] insurance would not pay for it Payor: [place] [employer] / Plan: [facility] MEDICA[place] [facility] / Product Type: Medicaid / Previously used [...] aspirin: Yes Prior intolerance to metformin Payor: [place] [employer] / Plan: [facility] MEDICA[place] [facility] / Product Type: Medicaid / 24 hour [...] of diabetes complications and monitoring required and hypoglycemic/hyperglyce abbey symptoms - LIRAGLUTIDE 0.6 MG/0.1 ML (18 [...] (more content not included)... Normal [facility] 25(OH)D3 SerPl-mCncon 2023 25-hydroxyvitamin D3 [Mass/Vol] 35.3 ng/mL Normal 31.0-80.0 [facility] Comment on above: Order Comment: Speci men Type: BLOOD SPECIMEN Ordering Facility: [facility] Address: [address] [place] [address] Result Comment: Clas sification of 25 [place] Vitamin D status: Deficiency/Insufficiency: < or = 30 ng/ml. Sufficiency/Optimal Levels: 31-80 ng/mL Toxicity: > 100 ng/mL. Test performed by chemiluminescent immunoassay. Performed By: #### 1 [id number] #### [facility] CLIA [id number] [address] [place], [place] [address] OF [facility] CNOVon 08-30-2023 CNOV Office Visit ([facility]) MICHELLE JULES ([id number]) 1965 F Date Time Provider Department 08/30/23 2:40 PM WILLIAMS RUBIN [facility] During your visit today, we recorded the following information about you: Temperature Pulse Blood pressure Weight 97 degrees 81/minute 118/77 107 kg Height 1.753 m Williams Rubin MD 08/30/2023 9:23 PM Signed [facility] Director Of Payroll Center / [address] [place] [address] Visit Date: August 30, 2023 Name: Michelle Jules Date of : 1965 MRN/E #: [id number] Subjective Patient is a 58 year old [...] - Patient is stress eating : Watching pp-vttpqm-bl-law and real mom in hospital.mom hospitalized and [...] neuropathy, with long-term current use of insulin ([facility]) - ICD9: 250.60, 357.2, V58.67, ICD10: E11.40, Z79.4 (primary diagnosis) - Uncontrolled - Worsening control - Counseled on healthy diet and regular exercise - Discussed need for and benefit of weight loss. BMI 34.82 kg/(m2) - Discussed diabetic education issues of - LIRAGLUTIDE 0.6 MG/0.1 ML (18 MG/3 ML) SUBCUTANEOUS PEN INJECTOR - EDUARDOAGLAR KWIKPEN U-100 INSULIN 100 UNIT/ML (more content not included)... Normal [facility] HEMOGLOBIN A1C (POC)on 08-30 HbA1c (Bld) [Mass fraction] 13.7 % Abnormal 4.3 - 5.6 % [facility] CNPMarianne 07-31-2023 CNPN Telephone ([facility]) MICHELLE JULES ([id number]) 1965 F Date Time Provider Department 07/31/23 HOMAR VASQUES [facility] During your visit today, we recorded [...] a happy lamp she can get at [facility] that can help with depression during [...] has questions about the medication. Primary Visit Diagnosis:Depression, unspecified depression type [F32.A] Other Visit Diagnoses:Essential hypertension, benign [I10] Restless leg syndrome [G25.81] Medication monitoring encounter [Z51.81] Type 2 diabetes mellitus with diabetic neuropathy, with long-term current use of insulin ([facility]) [E11.40, Z79.4] Order(s):DULoxetine (CYMBALTA) 60 mg capsuleTake [...] VITAMIN D 25 HYDROXY [SQVITD] Order #: [id number] FUTURE insulin needles, DISPOSABLE, (PEN NEEDLE) 31 [...] by mouth twice daily as needed - acetylcyst/zkfbwiZ55/le vomefol (METAFOLBIC PLUS ORAL) Take by mouth. - glyBURIDE 5 mg tabl (more content not included)... [facility] 07-29-2023 SERA Telephone ([facility]) MICHELLE JULES ([id number]) 1965 F Date Time Provider Department 07/29/23 WILLIAMS RUBIN [facility] During your visit today, we recorded [...] 1 capsule by mouth once daily. - acetylcyst/htqvyeR60/le vomefol (METAFOLBIC PLUS ORAL) Take by mouth. - [...] daily at bedtime. - blood sugar diagnostic (LaunchTrack ULTRA TEST) test strip USE TO TEST [...] mouth twice daily. Facility-Administered Medications as of 07/31/2023 - sodium chloride [...] right foot [M67.471] 09/09/2015 Biventricular ICD (implantable cardioverter-def*2015 Uncontrolled type 2 diabetes mellitus with diab*12/21/2015 Restless leg syndrome [G25.81] 02/09/2016 Peroneal tendinitis [M76.70] 07/12/2016 Pain in joint, ankle and foot [M25.579] 07/12/2016 Nonallergic rhinitis [J31.0] 04/03/2018 Cystocele with prolapse [N81.4] 11/12/2018 Urgency of urination [R39.15] 11/12/2018 Mixed incontinence [N39.46] 11/12/2018 Obesity, Class II, BMI 35-39.9 [E66.9] 01/22/2023 Hyperlipidemia, mixed [E78.2] 05/20/2023 Encounter Status:Closed by KARINA ANDERSON on 07/31/23 [facility] 06-26-2023 [facility] Tele[facility] ([facility]) MICHELLE JULES ([id number]) 1965 F Date Time Provider Department 06/26/23 WILLIAMS RUBIN [facility] During your visit today, we recorded the following information about you: Williams Rubin MD 06/26/2023 10:57 AM Signed GLP-1 Pen Question Michelle Kathleen Jorge A called to ask if she can use her mother's extra unused and unopened Trulicity pens (her mother has 3 extra boxes that in 2023). She used her last 1.2 mg dose of Victoza this week. Her insurance will not restart until July 15, 2023 and she has worked with nursing home social worker and patient outreach to get [...] her know and will let our front sight attacher know as well. Vaccines -She received her [...] 1 capsule by mouth once daily. - acetylcyst/qmqhazY16/le vomefol (METAFOLBIC PLUS ORAL) Take by mouth. - [...] bedtime. - blood (more content not included)... Normal [facility] Tele[facility] ([facility]) MICHLELE JULES ([id number]) 1965 F Date Time Provider Department 06/20/23 WILLIAMS RUBIN [facility] During your visit today, we recorded the following information about you: Maria A Velarde LPN 06/20/2023 3:49 PM Signed Prior authorization for Basaglar kwikpen 100unit/ml has been submitted via [employer]. Awaiting determination. Tamica Beatty LPN 06/25/2023 10:03 AM Signed Basaglar kwikpen 100unit/ml- DENIED: Denied completely for medical neccessity because: Do not see medical record of a history of therapeutic failure or intolerance to 3 preferred hypoglycemics Preferred alternatives: Insulin Glargine Solostar/Vial, Latus solostar/Vial, Levemir Flextouch/Vial, toujeo Solostar Pen/Toujeo Max Solostar Pen Phone call to [place] [facility] they tried to process a claim [...] Fully Assessed Reason for Visit: Medication Authorization [[id number]] Cmt: Basaglar kwikpen 100unit/ml- DENIED Prescriptions as [...] 1 capsule by mouth once daily. - acetylcyst/gdosbfO04/le vomefol (METAFOLBIC PLUS ORAL) Take by mouth. - [...] daily at bedtime. - blood sugar diagnostic (LaunchTrack ULTRA TEST) test strip USE TO TEST [...] mouth twice daily. Facility-Administered Medications as of 06/25/2023 - sodium chloride [...] right foot [M67.471] 09/09/2015 Biventricular ICD (implantable cardioverter-def*2015 Uncontrolled type 2 diabetes mellitus with diab*12/21/2015 Restless leg syndrome [G25.81] 02/09/2016 Peroneal tendinitis [M76.70] 07/12/2016 Pain in joint, ankle and foot [M25.579] 07/12/2016 Nonallergic rhinitis [J31.0] 04/03/2018 Cystocele with prolapse [N81.4] 11/12/2018 Urgency of urination [R39.15] 11/12/2018 Mixed incontinence [N39.46] 11/12/2018 Obesity, Class II, BMI 35-39.9 [E66.9] 01/22/2023 Hyperlipidemia, mixed [E78.2] 05/20/2023 Encounter Status:Closed by MARIA A VELARDE on 06/24/23 [facility] CNPN Telephone ([facility]) MICHELLE JULES ([id number]) 1965 F Date Time Provider Department 06/20/23 WALESKA JACKSON [facility] During your visit today, we recorded the following information about you: Waleska Jackson LSW 06/20/2023 5:25 PM Signed Reason for Contact: Referral from Dr Carrera and Naomi Murphy. Type of Contact: Phone [...] 1 capsule by mouth once daily. - acetylcyst/yyyevyL50/le vomefol (METAFOLBIC PLUS ORAL) Take by mouth. - [...] daily at bedtime. - blood sugar diagnostic (Broad[employer] Graphics Display SystemUCH ULTRA TEST) test strip USE TO TEST [...] mouth twice daily. Facility-Administered Medications as of 07/01/2023 - sodium chloride [...] right foot [M67.471] 09/09/2015 Biventricular ICD (implantable cardioverter-def*2015 Uncontrolled type 2 diabetes mellitus with diab*12/21/2015 Restless leg syndrome [G25.81] 02/09/2016 Peroneal tendinitis [M76.70] 07/12/2016 Pain in joint, ankle and foot [M25.579] 07/12/2016 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 Normal [facility] 06-18-2023 [facility] Telephone ([facility]) MICHELLE JULES ([id number]) 1965 F Date Time Provider Department 06/18/23 HOMAR VASQUES [facility] During your visit today, we recorded the following information about you: Maria A Martinez 06/18/2023 10:40 AM Signed ----- Message from Delia Deangelo sent at 06/18/2023 10:09 AM EST ----- [facility] [place]/[facility] ACC/Cfm, Pharm D Clinic Ag/Patient wants to schedule an appointment Subject Line Format: Medicine / Homar Vasques MD / [Issue] Select Department Name For Pool Routing Assistance: [facility] AG ACC CFM => AG [facility] ACC CFM APPT CTR TRIAGE POOL [[id number]] Patient: Michelle Jules Date of : 1965 [...] other than patient: N/A Best contact number: [phone] Thank you, Delia Bright June 18, 2023 [...] 1 capsule by mouth once daily. - acetylcyst/pzpebhO85/le vomefol (METAFOLBIC PLUS ORAL) Take by mouth. - [...] daily at bedtime. - blood sugar diagnostic (LaunchTrack ULTRA TEST) test strip USE TO TEST [...] mouth twice daily. Facility-Administered Medications as of 06/18/2023 - sodium chloride [...] right foot [M67.471] 09/09/2015 Biventricular ICD (implantable cardioverter-def*2015 Uncontrolled type 2 diabetes mellitus with diab*12/21/2015 Restless leg syndrome [G25.81] 02/09/2016 Peroneal tendinitis [M76.70] 07/12/2016 Pain in joint, ankle and foot [M25.579] 07/12/2016 Nonallergic rhinitis [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 Normal [facility] MICHELLE JULES ([id number]) 1965 F Date Time Provider Department 06/17/23 WILLIAMS RUBIN [facility] During your visit today, we recorded the following information about you: Williams Rubin MD 06/17/2023 6:31 PM Signed I called patient regarding fasting sugars staying at 300-400s She states: - She would like all meds sent to [place] pharmacy - Ran out of long acting [...] tape is not holding - Will contact [facility] Pharmacist Dr. Carrera for her recommendation of medication and CGM use. - Will contact Dr. Vasques for recommendation of her medication for glucose control as well. MD Tayo Nina Megan, [facility] 06/18/2023 2:15 PM Signed Appt with pharmD 07/03/2023. Patient no showed 05/01/2023; last with pharmD 04/03/2023. Hemoglobin A1C (POCT) Date Value Ref Range Status 05/20/2023 12.5 (A) 4.2 - 5.6 % Final Comment: Location:[facility] Director Of Payroll [place], [address] [place] [address], [facility] Point of care (POC) Hemoglobin A1c (HGBA1C) [...] specific diabetes management situations: The POC device manufacturer's service representative provides a normal range of 4.2% to 6.5% for the HGBA1C POC test. However, the [place] [employer] guidelines indicate that patients with [...] purchase tegaderm patches OTC from pharmacy or [employer] (insurance does not cover), 2) purchase skin-tac (skin super glue) to use for prior to sensor placement or 3) try different area of the body (such stomach if falling off arm). Can discuss further at upcoming appointment as well. Sonia Carrera [facility] Caprice, Homar David MD 06/21/2023 5:37 PM Signed [...] current use of insulin (HCC) [E11.40, Z79.4] Other Visit Diagnosis:Hyperglycemia [R73.9] Order(s):insulin glargine (BASAGLAR KWIKPEN U-100 INSULIN) [...] (more content not included)... Normal [facility]) MICHELLE JULES ([id number]) 1965 F Date Time Provider Department 06/14/23 WILLIAMS RUBIN [facility] During your visit today, we recorded [...] 1 capsule by mouth once daily. - acetylcyst/ptillnO42/le vomefol (METAFOLBIC PLUS ORAL) Take by mouth. - [...] daily at bedtime. - blood sugar diagnostic (Broadcast [employer] Weather [employer] Brand[employer] Graphics Display SystemUCH ULTRA TEST) test strip USE TO TEST [...] mouth twice daily. Facility-Administered Medications as of 06/19/2023 - sodium chloride [...] right foot [M67.471] 09/09/2015 Biventricular ICD (implantable cardioverter-def*2015 Uncontrolled type 2 diabetes mellitus with diab*12/21/2015 Restless leg syndrome [G25.81] 02/09/2016 Peroneal tendinitis [M76.70] 07/12/2016 Pain in joint, ankle and foot [M25.579] 07/12/2016 Nonallergic rhinitis [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 Normal [facility] CNPNon 05-24-2023 CNPN Telephone ([facility]) JORGE AMICHELLE Mcguire ([id number]) 1965 F Date Time Provider Department 05/24/23 WILLIAMS RUBIN [facility] During your visit today, we recorded [...] 05/24/2023 3:55 PM Signed Spoke to Michelle Jorge A to address Hypoglycemia: - Has been taking [...] 1 capsule by mouth once daily. - acetylcyst/urmobuV45/le vomefol (METAFOLBIC PLUS ORAL) Take by mouth. - [...] daily at bedtime. - blood sugar diagnostic (LaunchTrack ULTRA TEST) test strip USE TO TEST [...] mouth twice daily. Facility-Administered Medications as of 05/24/2023 - sodium chloride [...] right foot [M67.471] 09/09/2015 Biventricular ICD (implantable cardioverter-def*2015 Uncontrolled type 2 diabetes mellitus with diab*12/21/2015 Restless leg syndrome [G25.81] 02/09/2016 Peroneal tendinitis [M76.70] 07/12/2016 Pain in joint, ankle and foot [M25.579] 07/12/2016 Nonallergic rhinitis [J31.0] 04/03/2018 Cystocele with prolapse [N81.4] 11/12/2018 Urgency of urination [R39.15] 11/12/2018 Mixed incontinence [N39.46] 11/12/2018 Obesity, Class II, BMI 35-39.9 [E66.9] 01/22/2023 Hyperlipidemia, mixed [E78.2] 05/20/2023 Encounter Status:Closed by REEMA SHEARER on 05/24/23 [facility] 05-20-2023 CNOV Office Visit (AGCFM) MICHELLE JULES ([id number]) 1965 F Date Time Provider Department 05/20/23 1:20 PM [facility] your visit today, we recorded the following information about you: Temperature Pulse Respiration Blood pressure 97 degrees 69/minute 18/minute 127/76 Weight Height 110 kg 1.753 m Williams Rubin MD 05/21/2023 3:58 PM Signed [facility] [address] [place] [address] Director Of Payroll Center / [address] Floor [place], [place] [address] Visit Date: May 19, 2023 Name: Michelle Jules Date of : 1965 MRN/E #: [id number] Subjective Patient is a 57 year old [...] corn, salads - Once/week exercising. Caregiver for fwxarj-le-mjf Inadequate control of diabetes despite documented complaint [...] (more content not included)... Normal [facility] ICD CLINIC CHECKon 3 AV Delay Adaptive Paced Minimum (ms) 150 ms [facility] AV Delay Adaptive Sensed Minimum (ms) 130 ms [facility] AV Delay Paced (ms) 100 ms [facility] AV Delay Sensed (ms) 85 ms [facility] Carlos Alberto LV Pacing Amplitude (volts) 2.5 V [facility] Carlos Alberto LV Pacing Pulse Width (ms) 1.0 ms [facility] carlos alberto LV Sensing Amplitude (mvolts) 1.0 mV [facility] Carlos Alberto RA Pacing Amplitude (volts) 2.0 V [facility] Carlos Alberto RA Pacing Polarity BI [facility] Carlos Alberto RA Pacing Pulse Width (ms) 0.4 ms [facility] Carlos Alberto RA Sensing Amplitude (mvolts) 0.25 mV [facility] Carlos Alberto RA Sensing Polarity BI [facility] Carlos Alberto RV Pacing Amplitude (volts) 2.0 V [facility] Carlos Alberto RV Pacing Polarity BI [facility] Carlos Alberto RV Pacing Pulse Width (ms) 0.4 ms [facility] Carlos Alberto RV Sensing Amplitude (mvolts) 0.6 mV [facility] Carlos Alberto RV Sensing Polarity BI [facility] Detection Configuration (Vent) 2 - Zone [facility] FastVT_Detection Interval 333 ms [facility] FastVT_Therapy Configuration 2 ATP(s) + 6 Shock(s) [facility] ICD FastVT DetectionStatus ENABLED [facility] ICD-AMS EPISODES 170 {beats}/min [facility] ICD-ATP Episodes (Vent) 0 [facility] ICD-ATRIALFIBRILLATION 1 Cl [facility] ICD-Device Mfg BSX [facility] ICD-LEADIMPEDANCEATRIA L 510 ohm [facility] ICD-Percent Pacing (Atrial) 8 % [facility] ICD-Percent Pacing (Vent) 100 % [facility] ICD-Rhythm /VS @ 47 bpm [facility] ICD-Shocks Aborted (Vent) 0 [facility] MTS-QJPTXD-[id number] 0 [facility] ICD-SHOCKSABORTED 0 [facility] ICD-SHOCKSDELIVEREDVEN TRICULAR 0 [facility] ICD-Ventricular Fibrillation 0 [facility] ICD-VVDELAY_MS 20 ms [facility] Implant Date 03/12/2018 [facility] Lead Impedance (LV) 738 ohm [facility] Lead Impedance (RV) 475 ohm [facility] Lead Impedance High Voltage 78 ohm [facility] Lead1 Mfg [employer] [facility] Lead2 Mfg Guidant [facility] Lead3 Mfg Guidant [facility] Location RA [facility] Location LV [facility] Location RV [facility] Lower Rate (bpm) 50 {beats}/min [facility] LV PACING % 100 % [facility] Max Sensor Rate (bpm) 130 {beats}/min [facility] MDT_PROG_TACHY_ZONE_DE TECTIONS_STATUS ENABLED [facility] Model G150 DYNAGEN RESISTOR INSPECTOR-D [facility] Model 0292 Endotak Relianc e 4-Site SG [facility] Model 4135 Dextrus [facility] Model 4542 EasyTrak 2 IS-1 , 80 cm [facility] Pacemaker Dependent? NO [facility] Pacing Mode DDDR [facility] Serial Number [id number] [facility] Serial Number [id number] [facility] Serial Number [id number] [facility] Serial Number [id number] [facility] Test Charge Energy 21 J [facility] Test Charge Time 11.0 s [facility] Therapy Status (Vent) Enabled [facility] Thresh LV Capture Amplitude (volts) 1.5 V [facility] Thresh LV Capture Duration (ms) 1.0 ms [facility] Thresh RA Capture Amplitude (volts) 0.5 V [facility] Thresh RA Capture Duration (ms) 0.4 ms [facility] Thresh RV Capture Amplitude (VOLTS) 0.7 V [facility] Thresh RV Capture Duration (MS) 0.4 ms [facility] Tracking Rate (bpm) 130 {beats}/min [facility] VF Zone Detection Interval 333 ms [facility] VF Zone Therapy Configuration 2 ATP(s) + 6 Shock(s) [facility] No Panel Informationon 04-03 BLANK _ [facility] ICD-Fast Ventricular Tachycardia 0 [facility] Implant Date 09/03/2013 [facility] ALBUMIN/CREAT RATIO RND URon 01-25-2023 Albumin DL <= 20 mg/L (U) [Mass/Vol] 12.7 mg/L Normal [facility] Comment on above: Order Comment: Speci men Type: URINE SPECIMEN Ordering Facility: [facility] Address: [address] [place] [address] Performed By: #### U ACR #### [facility] CLIA [id number] [address] [place] [address] [place] Albumin/Creatinine (U) [Mass ratio] 7 mg/g Normal <30 [facility] Comment on above: Order Comment: Speci men Type: URINE SPECIMEN Ordering Facility: [facility] Address: [address] [place] [address] Result Comment: Adul t Male and Female Nephrotic Criteria: <30 mg/g is considered normal to mildly increased 30-300 mg/g is considered moderately increased >300 mg/g is considered severely increased KDIGO. (2013). KDIGO 2012 Clinical Practice Guideline for the Evaluation and Management of Chronic Kidney Disease. Official Journal of the International Society of Nephrology, 3(1), 1-150. Performed By: #### U ACR #### [facility] CLIA [id number] [facility] [place] [address] [place] Creatinine (U) [Mass/Vol] 188.3 mg/dL Normal 20.0-300.0 [facility] Comment on above: Order Comment: Speci men Type: URINE SPECIMEN Ordering Facility: [facility] Address: [address] [place] [address] Performed By: #### U ACR #### [facility] CLIA [id number] [address] [address], [place] [address] [place] CBC W Auto Differential pane l (Bld)on 01-25-2023 Basophils (Bld) [#/Vol] 0.03 10*3/uL Normal <0.11 [facility] Comment on above: Order Comment: Speci men Type: BLOOD SPECIMEN Ordering Facility: [facility] Address: [address] [place] [address] Performed By: #### 5 7021-8 #### [facility] CLIA [id number] [address] [place] [address] [place] Basophils/100 WBC (Bld) 0.5 % Normal [facility] Comment on above: Order Comment: Speci men Type: BLOOD SPECIMEN Ordering Facility: [facility] Address: [address] [place] [address] Performed By: #### 5 7021-8 #### [facility] CLIA [id number] [address] [place] [address] [place] Differential cell count method Nom (Bld) Auto Normal [facility] Comment on above: Order Comment: Speci men Type: BLOOD SPECIMEN Ordering Facility: [facility] Address: [address] [place] [address] Performed By: #### 5 7021-8 #### [facility] CLIA [id number] [address] [place] [address] [place] Eosinophils (Bld) [#/Vol] 0.09 10*3/uL Normal <0.46 [facility] Comment on above: Order Comment: Speci men Type: BLOOD SPECIMEN Ordering Facility: [facility] Address: [address] [place] [address] Performed By: #### 5 7021-8 #### [facility] CLIA [id number] [address] [place] [address] [place] Eosinophils/100 WBC (Bld) 1.5 % Normal [facility] Comment on above: Order Comment: Speci men Type: BLOOD SPECIMEN Ordering Facility: [facility] Address: [address] [address] Performed By: #### 5 7021-8 #### [facility] CLIA [id number] [address] [place] [address] [place] Erythrocyte distribution width (RBC) [Ratio] 14.2 % Normal 11.5-15.0 [facility] Comment on above: Order Comment: Speci men Type: BLOOD SPECIMEN Ordering Facility: [facility] Address: [address] [address] Performed By: #### 5 7021-8 #### [facility] CLIA [id number] [address] [place] [address] [place] Hematocrit (Bld) [Volume fraction] 38.3 % Normal 36.0-46.0 [facility] Comment on above: Order Comment: Speci men Type: BLOOD SPECIMEN Ordering Facility: [facility] Address: [address] [place] [address] Performed By: #### 5 7021-8 #### [facility] CLIA [id number] [address] [place] [address] [place] Hemoglobin (Bld) [Mass/Vol] 12.9 g/dL Normal 11.5-15.5 [facility] Comment on above: Order Comment: Speci men Type: BLOOD SPECIMEN Ordering Facility: [facility] Address: [address] Performed By: #### 5 7021-8 #### [facility] CLIA [id number] [address] [place] [address] [place] Immature granulocytes (Bld) [#/Vol] 0.03 10*3/uL Normal <0.10 [facility] Comment on above: Order Comment: Speci men Type: BLOOD SPECIMEN Ordering Facility: [facility] Address: [address] [place], [place] [address] Performed By: #### 5 7021-8 #### [facility] CLIA [id number] [address] [place] [address] [place] Immature granulocytes/100 WBC (Bld) 0.5 % Normal [facility] Comment on above: Order Comment: Speci men Type: BLOOD SPECIMEN Ordering Facility: [facility] Address: [address] [place] [address] Performed By: #### 5 7021-8 #### [facility] CLIA [id number] [address] [place] [address] [place] Lymphocytes (Bld) [#/Vol] 1.65 10*3/uL Normal 1.00-4.00 [facility] Comment on above: Order Comment: Speci men Type: BLOOD SPECIMEN Ordering Facility: [facility] Address: [address] [address] Performed By: #### 5 7021-8 #### [facility] CLIA [id number] [address] [place] [address] [place] Lymphocytes/100 WBC (Bld) 28.2 % Normal [facility] Comment on above: Order Comment: Speci men Type: BLOOD SPECIMEN Ordering Facility: [facility] Address: [address] [place] [address] Performed By: #### 5 7021-8 #### [facility] CLIA [id number] [address] [place] [address] [place] MCH (RBC) [Entitic mass] 29.1 pg Normal 26.0-34.0 [facility] Comment on above: Order Comment: Speci men Type: BLOOD SPECIMEN Ordering Facility: [facility] Address: [address] [place] [address] Performed By: #### 5 7021-8 #### [facility] CLIA [id number] [address] [place] [address] [place] MCHC (RBC) [Mass/Vol] 33.7 g/dL Normal 30.5-36.0 [facility] Comment on above: Order Comment: Speci men Type: BLOOD SPECIMEN Ordering Facility: [facility] Address: [address] [place] [address] Performed By: #### 5 7021-8 #### [facility] CLIA [id number] [address] [place] [address] [place] MCV (RBC) [Entitic vol] 86.5 fL Normal 80.0-100.0 [facility] Comment on above: Order Comment: Speci men Type: BLOOD SPECIMEN Ordering Facility: [facility] Address: [address] [place] [address] Performed By: #### 5 7021-8 #### [facility] CLIA [id number] [address] [place] [address] [place] Monocytes (Bld) [#/Vol] 0.43 10*3/uL Normal <0.87 [facility] Comment on above: Order Comment: Speci men Type: BLOOD SPECIMEN Ordering Facility: [facility] Address: [address] [place] [address] Performed By: #### 5 7021-8 #### [facility] CLIA [id number] [address] [place] [address] [place] Monocytes/100 WBC (Bld) 7.4 % Normal [facility] Comment on above: Order Comment: Speci men Type: BLOOD SPECIMEN Ordering Facility: [facility] Address: [address] [place] [address] Performed By: #### 5 7021-8 #### [facility] CLIA [id number] [address] [place] [address] [place] Neutrophils (Bld) [#/Vol] 3.62 10*3/uL Normal 1.45-7.50 [facility] Comment on above: Order Comment: Speci men Type: BLOOD SPECIMEN Ordering Facility: [facility] Address: [address] [address] Performed By: #### 5 7021-8 #### [facility] CLIA [id number] [address] [place] [address] [place] Neutrophils/100 WBC (Bld) 61.9 % Normal [facility] Comment on above: Order Comment: Speci men Type: BLOOD SPECIMEN Ordering Facility: [facility] Address: [address] [address] Performed By: #### 5 7021-8 #### [facility] CLIA [id number] [address] [place] [address] [place] Nucleated RBC (Bld) [#/Vol] 10*3/uL Normal <0.01 [facility] Comment on above: Order Comment: Speci men Type: BLOOD SPECIMEN Ordering Facility: [facility] Address: [address] [address] Performed By: #### 5 7021-8 #### [facility] CLIA [id number] [address] [place] [address] [place] Nucleated RBC/100 WBC (Bld) [Ratio] 0.0 /100 WBC Normal [facility] Comment on above: Order Comment: Speci men Type: BLOOD SPECIMEN Ordering Facility: [facility] Address: [address] Performed By: #### 5 7021-8 #### [facility] CLIA [id number] [address] [place] [address] [place] Platelet mean volume (Bld) [Entitic vol] 10.4 fL Normal 9.0-12.7 [facility] Comment on above: Order Comment: Speci men Type: BLOOD SPECIMEN Ordering Facility: [facility] Address: [address] [address] Performed By: #### 5 7021-8 #### [facility] CLIA [id number] [address] [place] [address] [place] Platelets (Bld) [#/Vol] 150 10*3/uL Normal 150-400 [facility] Comment on above: Order Comment: Speci men Type: BLOOD SPECIMEN Ordering Facility: [facility] Address: [address] [place] [address] Performed By: #### 5 7021-8 #### [facility] CLIA [id number] [address] [place] [address] [place] RBC (Bld) [#/Vol] 4.43 10*6/uL Normal 3.90-5.20 [facility] Comment on above: Order Comment: Speci men Type: BLOOD SPECIMEN Ordering Facility: [facility] Address: [address] [place] [address] Performed By: #### 5 7021-8 #### [facility] CLIA [id number] [address] [place] [address] [place] WBC (Bld) [#/Vol] 5.85 10*3/uL Normal 3.70-11.00 [facility] Comment on above: Order Comment: Speci men Type: BLOOD SPECIMEN Ordering Facility: [facility] Address: [address] [place] [address] Performed By: #### 5 7021-8 #### [facility] CLIA [id number] [address] [place] [address] [place] Comprehensive metabolic 2000 panelon 01-25-2023 Albumin [Mass/Vol] 4.0 g/dL Normal 3.9-4.9 [facility] Comment on above: Order Comment: Speci men Type: BLOOD SPECIMEN Ordering Facility: [facility] Address: [address] [place] [address] Performed By: #### 2 4323-8, 86325-0 #### [facility] CLIA [id number] [address] [place] [address] [place] ALP [Catalytic activity/Vol] 205 U/L High 34-123 [facility] Comment on above: Order Comment: Speci men Type: BLOOD SPECIMEN Ordering Facility: [facility] Address: [address] [place] [address] Performed By: #### 2 4323-8, 50108-0 #### [facility] CLIA [id number] [address] [place] [address] [place] ALT [Catalytic activity/Vol] 23 U/L Normal 7-38 [facility] Comment on above: Order Comment: Speci men Type: BLOOD SPECIMEN Ordering Facility: [facility] Address: [address] [place] [address] Performed By: #### 2 4323-8, #### [facility] CLIA [id number] [address] [place] [address] [place] Anion gap [Moles/Vol] 9 mmol/L Normal 9-18 [facility] Comment on above: Order Comment: Speci men Type: BLOOD SPECIMEN Ordering Facility: [facility] Address: [address] [place] [address] Performed By: #### 2 4323-8, 36510-2 #### [facility] CLIA [id number] [address] [place] [address] [place] AST [Catalytic activity/Vol] 16 U/L Normal 13-35 [facility] Comment on above: Order Comment: Speci men Type: BLOOD SPECIMEN Ordering Facility: [facility] Address: [address] [place] [address] Performed By: #### 2 4323-8, 55677-8 #### [facility] CLIA [id number] [address] [place] [address] [place] Bilirubin [Mass/Vol] 0.3 mg/dL Normal 0.2-1.3 [facility] Comment on above: Order Comment: Speci men Type: BLOOD SPECIMEN Ordering Facility: [facility] Address: [address] [address] Performed By: #### 2 8, #### [facility] CLIA [id number] [address] [place] [address] [place] Calcium [Mass/Vol] 9.4 mg/dL Normal 8.5-10.2 [facility] Comment on above: Order Comment: Speci men Type: BLOOD SPECIMEN Ordering Facility: [facility] Address: [address] [address] Performed By: #### 2 8, #### [facility] CLIA [id number] [address] [place] [address] [place] Chloride [Moles/Vol] 103 mmol/L Normal 97-105 [facility] Comment on above: Order Comment: Speci men Type: BLOOD SPECIMEN Ordering Facility: [facility] Address: [address] [place] [address] Performed By: #### 2 8, #### [facility] CLIA [id number] [address] [place] [address] [place] CO2 [Moles/Vol] 25 mmol/L Normal 22-30 [facility] Comment on above: Order Comment: Speci men Type: BLOOD SPECIMEN Ordering Facility: [facility] Address: [address] Performed By: #### 2 4322-8, #### [facility] CLIA [id number] [address] [place] [address] [place] Creatinine [Mass/Vol] 0.64 mg/dL Normal 0.58-0.96 [facility] Comment on above: Order Comment: Speci men Type: BLOOD SPECIMEN Ordering Facility: [facility] Address: [address] Performed By: #### 2 4323-8, #### [facility] CLIA [id number] [address] [place] [address] [place] ESTIMATED GLOMERULAR FILTRATION RATE 104 mL/min/1.73m??? Normal >=60 [facility] Comment on above: Order Comment: Maty javed Type: BLOOD SPECIMEN Ordering Facility: [facility] Address: [address] [address] Result Comment: Mayra mated Glomerular Filtration Rate [...] GFR. Performed By: #### 2 4323-8, #### [facility] CLIA [id number] [address] [place] [address] [place] Glucose [Mass/Vol] 304 mg/dL High 74-99 [facility] Comment on above: Order Comment: Maty javed Type: BLOOD SPECIMEN Ordering Facility: [facility] Address: [address] [place] [address] Result Comment: The [place] [employer] (ADA) provides guidance for cutoff [...] Standards of Medical Care in Diabetes 2016, [place] [employer]. Diabetes Care. 2016.39(Suppl 1). Performed By: #### 2 43238, #### [facility] CLIA [id number] [address] [place] [address] [place] Potassium [Moles/Vol] 4.2 mmol/L Normal 3.7-5.1 [facility] Comment on above: Order Comment: Speci men Type: BLOOD SPECIMEN Ordering Facility: [facility] Address: [address] [place] [address] Performed By: #### 2 4323-02, #### [facility] CLIA [id number] [address] [place] [address] [place] Protein [Mass/Vol] 7.0 g/dL Normal 6.3-8.0 [facility] Comment on above: Order Comment: Speci men Type: BLOOD SPECIMEN Ordering Facility: [facility] Address: [address] [place] [address] Performed By: #### 2 4323-02, #### [facility] CLIA [id number] [address] [place] [address] [place] Sodium [Moles/Vol] 137 mmol/L Normal 136-144 [facility] Comment on above: Order Comment: Speci men Type: BLOOD SPECIMEN Ordering Facility: [facility] Address: [address] [place] [address] Performed By: #### 2 4323-02, #### [facility] CLIA [id number] [address] [place] [address] [place] Urea nitrogen [Mass/Vol] 13 mg/dL Normal 7-21 [facility] Comment on above: Order Comment: Speci men Type: BLOOD SPECIMEN Ordering Facility: [facility] Address: [address] [address] Performed By: #### 2 8, #### [facility] CLIA [id number] [address] [place] [address] [place] HIV 1+2 Ab IA Qlon 3 HIV 1 and 2 Ab IA.rapid Nom Normal [facility] Comment on above: Order Comment: Speci men Type: BLOOD SPECIMEN Ordering Facility: [facility] Address: [address] [place] [address] Result Comment: Test not indicated. Performed By: #### 3 1201-7 #### [facility] CLIA [id number] [address] [place] [address] [place] HIV 1+2 Ab+HIV1 p24 Ag IA Ql Non-Reactive Normal Nonreactive [facility] Comment on above: Order Comment: Speci men Type: BLOOD SPECIMEN Ordering Facility: [facility] Address: [address] [place] [address] Performed By: #### 3 1201-7 #### [facility] CLIA [id number] [address] [place] [address] [place] HIVINT Normal [facility] Comment on above: Order Comment: Speci men Type: BLOOD SPECIMEN Ordering Facility: [facility] Address: [address] [place] [address] Result Comment: No e vidence of HIV-1 or HIV-2 infection. Should recent infection be suspected, repeat testing may be considered 2-3 weeks after this draw. [place] Rev. Code 3701.243(E): This information has been [...] diagnoses. Performed By: #### 3 1201-7 #### [facility] CLIA [id number] [address] [place] [address] [place] Lipid 1996 panelon 3 Cholesterol [Mass/Vol] 177 mg/dL Normal <200 [facility] Comment on above: Order Comment: Speci men Type: BLOOD SPECIMEN Ordering Facility: [facility] Address: [address] [id number] Result Comment: <200 mg/dL, Desirable 200-239 mg/dL, Borderline high >239 mg/dL, High Performed By: #### 3 016-3, 3024-7 #### [facility] CLIA [id number] [address] [place] [address] [place] #### 09264-2 #### [facility] CLIA [id number] [address] [place] [address] [place] [facility] CLIA [id number] [address] [place] [address] [place] Cholesterol in HDL [Mass/Vol] 38 mg/dL Low >39 [facility] Comment on above: Order Comment: Speci men Type: BLOOD SPECIMEN Ordering Facility: [facility] Address: [address] [place], [place] [address] Result Comment: 40-5 9 mg/dL, Acceptable >59 mg/dL, High: Negative risk factor for coronary heart disease <40 mg/dL, Low: Positive risk factor for coronary heart disease Performed By: #### 3 016-3, 3024-7 #### [facility] CLIA [id number] [address] [place] [address] [place] #### 08102-3 #### [facility] CLIA [id number] [address] [place] [address] [place] [facility] CLIA [id number] [address] [place] [address] [place] Cholesterol in LDL [Mass/Vol] 99 mg/dL Normal <100 [facility] Comment on above: Order Comment: Speci men Type: BLOOD SPECIMEN Ordering Facility: [facility] Address: [address] Result Comment: <100 mg/dL, Optimal 100-129 mg/dL, Near optimal/above optimal 130-159 mg/dL, Borderline high 160-189 mg/dL, High >189 mg/dL, Very high Secondary prevention optimal LDL Cholesterol levels are recommended to be < 70 mg/dL Performed By: #### 3 016-3, 3023-7 #### [facility] CLIA [id number] [address] [place] [address] [place] #### 92492-3 #### [facility] CLIA [id number] [address] [place] [address] [place] [id number] [address] [place] [address] [place] Cholesterol in LDL/Cholesterol in HDL [Mass ratio] 2.61 {ratio} High <2.54 [facility] Comment on above: Order Comment: Speci men Type: BLOOD SPECIMEN Ordering Facility: [facility] Address: [address] [place] [address] Result Comment: Refe rence: 1. National Cholesterol Education Program ATP III Guideline At-A-Glance Quick Desk Reference: National Heart, Lung, and Blood [place]. National Institutes of Health. 2001: NIH Publication No. 01-3305. 2. An International Atherosclerosis Society position paper: global recommendations for the management of dyslipidemia: executive summary, Atherosclerosis. 2014: 232(2):410-413. Performed By: #### 3 016-3, 7 #### [facility] CLIA [id number] [address] [facility] [place] [address] [place] #### 90056-4 #### [facility] CLIA [id number] [address] [place] [address] [place] [facility] [id number] [address] [place] [address] [place] Cholesterol in VLDL [Mass/Vol] 40 mg/dL High <30 [facility] Comment on above: Order Comment: Speci men Type: BLOOD SPECIMEN Ordering Facility: [facility] Address: [address] Performed By: #### 3 016-3, 3024-01 #### [facility] CLIA [id number] [address] [place] [address] [place] #### 98103-9 #### [facility] CLIA [id number] [address] [place] [address] [place] [facility] CLIA [id number] [address] [place] [address] [place] Cholesterol non HDL [Mass/Vol] 139 mg/dL High <130 [facility] Comment on above: Order Comment: Speci men Type: BLOOD SPECIMEN Ordering Facility: [facility] Address: [address] [place] [address] Result Comment: <130 mg/dL, Optimal 130-159 mg/dL, Near optimal/above optimal 160-189 mg/dL, Borderline high 190-219 mg/dL, High >219 mg/dL, Very high Secondary prevention optimal non HDL Cholesterol levels are recommended to be <100 mg/dL Performed By: #### 3 016-3, 3024-01 #### [facility] CLIA [id number] [address] [place] [address] [place] #### 04671-6 #### [facility] CLIA [id number] [address] [id number] [place] [facility] CLIA [id number] [address] [place] [address] [place] Cholesterol.total/Chol esterol in HDL [Mass ratio] 4.66 {ratio} Normal <5.10 [facility] Comment on above: Order Comment: Speci men Type: BLOOD SPECIMEN Ordering Facility: [facility] Address: [address] [place] [address] Performed By: #### 3 016-3, 3024-01 #### [facility] CLIA [id number] [address] [place] [address] [place] #### 64280-4 #### [facility] CLIA [id number] [address] [place] [address] [place] [facility] [id number] [address] [place] [address] [place] [facility] 12 hrs Normal [facility] Comment on above: Order Comment: Speci men Type: BLOOD SPECIMEN Ordering Facility: [facility] Address: [address] [place] [address] Performed By: #### 3 016-3, 3024-01 #### [facility] CLIA [id number] [address] [place] [address] [place] #### 31207-7 #### [facility] CLIA [id number] [address] [place] [address] [place] [facility] [id number] [address] [place] [address] [place] Triglyceride [Mass/Vol] 201 mg/dL High <150 [facility] Comment on above: Order Comment: Speci men Type: BLOOD SPECIMEN Ordering Facility: [facility] Address: [address] [place] [address] Result Comment: <150 mg/dL, Normal 150-199 mg/dL, Borderline high 200-499 mg/dL, High >499 mg/dL, Very high Performed By: #### 3 016-3, 3024-01 #### [facility] CLIA [id number] [address] [place] [address] [place] #### 57832-4 #### [facility] CLIA [id number] [address] [place] [address] [place] [facility] CLIA [id number] [address] [place] [address] [place] Magnesium SerPl-mCncon 01-25 Magnesium [Mass/Vol] 1.9 mg/dL Normal 1.7-2.3 [facility] Comment on above: Order Comment: Speci men Type: BLOOD SPECIMEN Ordering Facility: [facility] Address: [address] [place] [address] Performed By: #### 2 4323-8, 21958-6 #### [facility] CLIA [id number] [address] [place] [address] [place] T4 Free SerPl-mCncon 023 Free T4 [Mass/Vol] 1.1 ng/dL Normal 0.9-1.7 [facility] Comment on above: Order Comment: Speci men Type: BLOOD SPECIMEN Ordering Facility: [facility] Address: [address] [place] [address] Performed By: #### 3 016-3, 3024-7 #### [facility] CLIA [id number] [address] [place] [address] [place] #### 57034-1 #### [facility] CLIA [id number] [address] [place] [address] [place] [facility] CLIA [id number] [address] [place] [address] [place] TSH SerPl-aCncon 01-25-2023 TSH Qn 0.539 m[IU]/L Normal 0.270-4.200 [facility] Comment on above: Order Comment: Speci men Type: BLOOD SPECIMEN Ordering Facility: [facility] Address: [address] [address] Performed By: #### 3 016-3, 3024-7 #### [facility] CLIA [id number] [address] [address] [place] #### 37202-5 #### [facility] CLIA [id number] [address] [place] [address] [place] [facility] CLIA [id number] [address] [id number] [place] OF ERIC HEMOGLOBIN A1C (POC)on 01-22 HbA1c (Bld) [Mass fraction] 14.7 % Abnormal 4.2 - 5.6 % [facility] REPORT OF OPERATIONon 2021 REPORT OF OPERATION [address] [place] [address] REPORT OF OPERATION : [id number] Signed Name: MICHELLE JULES MRUN: [id number] : 1965 Loc: [facility] Age / Sex: 56/ F Adm [...] that she is ready to move to [place]. The patient states that she does move to [place] next week. The patient denies any problems [...] 05/02/22 1229 Transcribed Date/Time: 05/02/22 1433 Normal [facility] ED Physician Documentationon 04-30-2022 ED Physician Documentation [address] [place] [address] Physician Documentation Signed:[id number] Name: MICHELLE JULES MRUN: [id number] : 1965 Loc: ED Age / Sex: [...] sutures removed in 10-14 days Referrals: Ha Rivas, SAND BUFFER [Primary Care Provider] - Call For An [...] History Past EENT history: Glaucoma Past EENT surgeries/treatments: Oral Surgery, Tonsillectomy, Adenoidectomy, Other Additional surgical history details: T A 1970. WISDOM TEETH EXTRACTION . DANDY LASER EYE SURGERY FOR GLAUCOMA 2019 Past neurological history: Migraine, Peripheral Neuropathy, Other Additional medical history details: RLS Past neurological surgeries/treatments: Negative Past cardiovascular history: Coronary Artery Disease, Arrhythmia, Congestive Heart Failure, Hypertension, High Cholesterol, Other Type of arrhythmia:: Unknown Additional medical history details: Cardiomyopathy;CHF-2014 Past cardiovascular surgeries/treatments:: Pacemaker, Internal Defibrillator, Cardiac Cath, Echocardiogram, Stress Test Past respiratory history: Bronchitis, Sleep Apnea Past respiratory surgeries/treatments:: Negative Past gastrointestinal history: GERD, Ulcer, Hemorrhoids Past gastrointestinal surgeries/treatments: Appendectomy, EGD, Colonoscopy Additional surgical history details: Appy 2006. Colonoscopy 2019. EGD Past genitourinary history: Urinary Tract Infection Additional medical history details: over active bladder Past Genitourinary surgeries/treatments: Cystoscopy Additional surgical history details: [facility] 2001? Past musculoskeletal history: Arthritis Type of arthritis:: Osteoarthritis Past musculoskeletal surgeries/treatments: Other Additional surgical history details: Right knee scope surgery x 2 , Past endocrine history: Diabetes, Hypothyroidism Current diabetes treatment:: Diet, Oral Med, Insulin Additional medical history details: FSBS in AM 180-200. Goiter-pcp monitors. No thyroid medications since 2014, PCP stopped per pt history Past endocrine surgeries/treatments: Other Additional surgical history details: Ultrasound of thyroid -10/2019 per pt General Reproductive History: Negative (more content not included)... Normal [facility] REPORT OF OPERATIONon 2021 REPORT OF OPERATION [address] [place] [address] REPORT OF OPERATION : [id number] Signed Name: MICHELLE JULES MRUN: [id number] : 1965 Loc: [facility] Age / Sex: 56/ F Adm [...] 04/25/22 1232 Transcribed Date/Time: 04/25/22 1420 Normal [facility] Ameena 04-20-2022 ALT [Catalytic activity/Vol] 17 U/L Normal 0-32 [facility] Comment on above: Order Comment: CALL doctor [id number] tel. , fax [phone] ALT [Catalytic activity/Vol] 17 U/L 0 - 32 U/L [facility] Jagjit 04-20-2022 AST [Catalytic activity/Vol] 14 U/L Normal 0-31 [facility] Comment on above: Order Comment: CALL doctor [id number] tel. , fax [phone] AST [Catalytic activity/Vol] 14 U/L 0 - 31 U/L [facility] BNPon 04-20-2022 Natriuretic peptide B (Bld) [Mass/Vol] 133 pg/mL High 0-125 [facility] Comment on above: Order Comment: CALL doctor [id number] tel. , fax [phone] Basic Metabolic Panelon 10-0 Anion gap [Moles/Vol] 10 mmol/L Normal 7-16 [facility] Comment on above: Order Comment: CALL doctor [id number] tel. , fax [phone] Calcium [Mass/Vol] 9.7 mg/dL Normal 8.6-10.2 [facility] Comment on above: Order Comment: CALL doctor [id number] tel. , fax [phone] Chloride [Moles/Vol] 98 mmol/L Normal 98-107 [facility] Comment on above: Order Comment: CALL doctor [phone] tel. , fax [phone] CO2 [Moles/Vol] 28 mmol/L Normal 22-29 [facility] Comment on above: Order Comment: CALL doctor 61119 tel. , fax [phone] Creatinine [Mass/Vol] 0.9 mg/dL Normal 0.5-1.0 [facility] Comment on above: Order Comment: CALL doctor [phone] tel. , fax [phone] GFR Calculated >60 Normal >=60 [facility] Comment on above: Order Comment: CALL doctor [phone] tel. , fax [phone] Result Comment: Publications Sales Representative josh Kidney Disease: less than 60 ml/min/1.73 sq.m. Kidney Failure: less than 15 ml/min/1.73 sq.m. Results valid for patients 18 years and older. GFR/1.73 sq M.predicted among blacks MDRD (S/P/Bld) [Vol rate/Area] mL/min/{1.73_m2} Normal [facility] Comment on above: Order Comment: CALL doctor [phone] tel. , fax [phone] Glucose [Mass/Vol] 429 mg/dL High 74-99 [facility] Comment on above: Order Comment: CALL doctor [phone] tel. , fax [phone] Potassium [Moles/Vol] 4.4 mmol/L Normal 3.5-5.0 [facility] Comment on above: Order Comment: CALL doctor [phone] tel. , fax [phone] Sodium [Moles/Vol] 136 mmol/L Normal 132-146 [facility] Comment on above: Order Comment: CALL doctor 37187 tel. , fax [phone] Urea nitrogen [Mass/Vol] 14 mg/dL Normal 6-20 [facility] Comment on above: Order Comment: CALL doctor [phone] tel. , fax [phone] Anion gap [Moles/Vol] 10 mmol/L 7 - 16 mmol/L [facility] [employer] Calcium [Mass/Vol] 9.7 mg/dL 8.6 - 10. 2 mg/dL [facility] Chloride [Moles/Vol] 98 mmol/L 98 - 10 7 mmol/L [employer] CO2 [Moles/Vol] 28 mmol/L 22 - 29 mmol/L [employer] Creatinine [Mass/Vol] 0.9 mg/dL 0.5 - 1 mg/dL [employer] [facility] GFR >60 [facility] [employer] GFR Non- >60 60 - PINF mL/min/1.73 [facility] Comment on above: Chronic Kidney Disea se: less than 60 ml/min/1.73 sq.m. Kidney Failure: less than 15 ml/min/1.73 sq.m. Results valid for patients 18 years and older. Glucose [Mass/Vol] 429 mg/dL High 74 - 99 mg/dL [facility] Interpretation and review of laboratory results Abnormal [facility] Potassium [Moles/Vol] 4.4 mmol/L 3.5 - 5 mmol/L [facility] Sodium [Moles/Vol] 136 mmol/L 132 - 146 mmol/L [facility] Urea nitrogen (BldV) [Mass/Vol] 14 mg/dL 6 - 20 mg/dL [facility] Brain Natriuretic Peptideon 04-20-2022 Interpretation and review of laboratory results Abnormal [facility] Natriuretic peptide B (Bld) [Mass/Vol] 133 pg/mL High 0 - 125 pg/mL [facility] CALL doctor [phone] rossi rodriguez , fax [phone] [facility] Magnesiumon 04-20-2022 Magnesium [Mass/Vol] 2.0 mg/dL Normal 1.6-2.6 [facility] Comment on above: Order Comment: CALL doctor [phone] tel. , fax [phone] Magnesium [Mass/Vol] 2.0 mg/dL 1.6 - 2 .6 mg/dL [facility] No Panel Informationon 04-20 CALL doctor 76694 jacobo eugene , fax [phone] [facility] US LIVERon 03-22-2022 LIVER [facility] [address] [place] [address] Diagnostic Imaging Report : [id number] Signed Name: MICHELLE JULES MRUN: [id number] : 1965 Loc: US Age / Sex: 56 / F ADM Status: REG CLI ADM Date: 03/22/22 Room/Bed: Ordering Physician: Ha Rivas NP Procedure: US LIVER Order Number(s): [id number] Ordered Date: 03/22/22 Ordered Time: 801 EXAMINATION: [...] Signed Date/Time: 03/22/22843 Transcribed Date/Time: 03/22/22839 Normal [facility] ALKALINE PHOSPHATASEon 03-07 ALP [Catalytic activity/Vol] 172 U/L High 43-122 [facility] Comment on above: Performed By: #### A LK PHOS 1 #### [place] [address] Serum or plasma alkaline tabitha sphatase measurement (enzymatic activity/volume)on 03-07-2022 ALP [Catalytic activity/Vol] 172 U/L 43-122 [facility] Work Phone: FREE T3on 03-01-2022 Free T3 [Mass/Vol] 2.9 pg/mL Normal 2.8-5.3 [facility] [employer] [facility] Comment on above: Performed By: #### [id number] #### [place] [address] FREE T4on 03-01-2022 Free T4 [Mass/Vol] 0.83 ng/dL Normal 0.78-2.19 [employer] [facility] Comment on above: Performed By: #### 4 [id number] #### [place] [address] No Panel Informationon 03-01 [facility] T3, Freeon 03-01-2022 Free T3 [Mass/Vol] 2.9 pg/mL 2.8 - 5.3 pg/mL [facility] T4, Freeon 03-01-2022 Free T4 [Mass/Vol] 0.83 ng/dL 0.78 - 2. 19 ng/dL [facility] TSHon 03-01-2022 TSH 0.689 uIU/mL Normal 0.465-4.680 [facility] Comment on above: Performed By: #### 4 [id number] #### [place] [address] TSH Qn 0.689 m[IU]/L [facility] Albumin [Mass/volume] in Ser um or Plasmaon 02-06-2022 Albumin [Mass/Vol] 3.8 g/dL 3.9-5.0 [facility] [employer] Work Phone: Albumin/Globulin [Mass Ratio ] in Serum or Plasmaon 02-06-2022 Albumin/Globulin [Mass ratio] 1.0 {ratio} 1.1-1.8 [facility] [employer] Work Phone: Anion gap 4 [Moles/Vol]on Anion gap [Moles/Vol] 12 mmol/L 9-18 [facility] [employer] Work Phone: Aspartate aminotransferase [ Enzymatic activity/volume] in Serum or Plasmaon 02-06-2022 AST [Catalytic activity/Vol] 16 U/L 8-39 [facility] [employer] Work Phone: Basophils Auto (Bld) [#/Vol] on 02-06-2022 Basophils (Bld) [#/Vol] 0.1 10*3/uL 0.0-0.2 [facility] [employer] Work Phone: Basophils/100 WBC Auto (Bld) on 02-06-2022 Basophils/100 WBC (Bld) 0.7 % 0.0-1.0 [facility] [employer] Work Phone: Bilirubin.total [Mass/volume ] in Serum or Plasmaon 02-06-2022 Bilirubin [Mass/Vol] 0.5 mg/dL 0.2-1.3 [facility] Work Phone: CBC WITH AUTO DIFFon 022 BASO, ABSOLUTE (AUTO) 0.1 10 3/uL Normal 0.0-0.2 [facility] Comment on above: Performed By: #### C MP, CBC, LIPID, VITAMIN D, TSH 1, B12 1 #### Main Lab - [facility] [address] [place] [address] Basophils/100 WBC (Bld) 0.7 % Normal 0.0-1.0 [facility] Comment on above: Performed By: #### C MP, CBC, LIPID, VITAMIN D, TSH 1, B12 1 #### Main Lab - [facility] [address] [place] [address]99[address] EOSINOPHILS, ABSOLUTE (AUTO) 0.1 10 3/uL Normal 0.0-0.7 [facility] Comment on above: Performed By: #### C MP, CBC, LIPID, VITAMIN D, TSH 1, B12 1 #### Main Lab - [facility] [address] [place] [address] 11217 Eosinophils/100 WBC (Bld) 1.1 % Normal 0.0-5.0 [facility] Comment on above: Performed By: #### C MP, CBC, LIPID, VITAMIN D, TSH 1, B12 1 #### Main Lab - [facility] [address] [place] [address] Erythrocyte distribution width (RBC) [Ratio] 15.9 % High 11.5-14.0 [facility] Comment on above: Performed By: #### C MP, CBC, LIPID, VITAMIN D, TSH 1, B12 1 #### Main Lab - [facility] [address] [place] [address] Hematocrit (Bld) [Volume fraction] 35.8 % Normal 34.8-45.0 [facility] Comment on above: Performed By: #### C MP, CBC, LIPID, VITAMIN D, TSH 1, B12 1 #### Main Lab - [facility] [address] [place] [address] Hemoglobin (Bld) [Mass/Vol] 12.1 g/dL Normal 11.6-14.9 [facility] Comment on above: Performed By: #### C MP, CBC, LIPID, VITAMIN D, TSH 1, B12 1 #### Main Lab - [facility] [address] [place] [address] LYMPHOCYTES, ABSOLUTE (AUTO) 1.9 10 3/uL Normal 1.0-3.5 [facility] Comment on above: Performed By: #### C MP, CBC, LIPID, VITAMIN D, TSH 1, B12 1 #### Main Lab - [facility] [address] [place] [address] 15511 Lymphocytes/100 WBC (Bld) 26.3 % Normal 24.0-44.0 [facility] Comment on above: Performed By: #### C MP, CBC, LIPID, VITAMIN D, TSH 1, B12 1 #### Main Lab - [facility] [address] [place] [address]1144 MCH (RBC) [Entitic mass] 28.7 pg Normal 27.0-31.0 [facility] Comment on above: Performed By: #### C MP, CBC, LIPID, VITAMIN D, TSH 1, B12 1 #### [facility] - [facility] [address] [place] [address] 85015 MCHC (RBC) [Mass/Vol] 33.7 g/dL Normal 32.0-36.0 [facility] Comment on above: Performed By: #### C MP, CBC, LIPID, VITAMIN D, TSH 1, B12 1 #### [facility] - [facility] [address] [place] [address] 27460 MCV (RBC) [Entitic vol] 85.0 fL Normal 78.0-100.0 [facility] Comment on above: Performed By: #### C MP, CBC, LIPID, VITAMIN D, TSH 1, B12 1 #### Main Lab - [facility] [address] [place] [address] 65916 MONOCYTES, ABSOLUTE (AUTO) 0.6 10 3/uL Normal 0.2-0.8 [facility] Comment on above: Performed By: #### C MP, CBC, LIPID, VITAMIN D, TSH 1, B12 1 #### Main Lab - [facility] [address] [place] [address] 41947 Monocytes/100 WBC (Bld) 8.1 % Normal 1.7-9.3 [facility] Comment on above: Performed By: #### C MP, CBC, LIPID, VITAMIN D, TSH 1, B12 1 #### Main Lab - [facility] [address] [place] [address]39 NEUTROPHILS, ABSOLUTE (AUTO) 4.7 10 3/uL Normal 1.5-6.7 [facility] Comment on above: Performed By: #### C MP, CBC, LIPID, VITAMIN D, TSH 1, B12 1 #### Main Lab - [facility] [address] [place] [address] 46644 Neutrophils/100 WBC (Bld) 63.8 % Normal 36.0-66.0 [facility] Comment on above: Performed By: #### C MP, CBC, LIPID, VITAMIN D, TSH 1, B12 1 #### Main Lab - [facility] [address] [place] [address]19[address] PLATELET COUNT 167 10 3/uL Normal 150-450 [facility] Comment on above: Performed By: #### C MP, CBC, LIPID, VITAMIN D, TSH 1, B12 1 #### Main Lab - [facility] [address] [place] [address] 93523 Platelet mean volume (Bld) [Entitic vol] 9.4 fL Normal 6.0-9.5 [facility] Comment on above: Performed By: #### C MP, CBC, LIPID, VITAMIN D, TSH 1, B12 1 #### Main Lab - [facility] [address] [place] [address] 71392 RED BLOOD COUNT 4.21 x10 6/uL Normal 3.89-5.30 [facility] Comment on above: Performed By: #### C MP, CBC, LIPID, VITAMIN D, TSH 1, B12 1 #### Main Lab - [facility] [address] [place] [address]277 WHITE BLOOD COUNT 7.4 10 3/uL Normal 4.0-10.5 [facility] Comment on above: Performed By: #### C MP, CBC, LIPID, VITAMIN D, TSH 1, B12 1 #### Main Lab - [facility] [address] [place] [address] COMPREHENSIVE METABOLIC PANE Dmitry 02-06-2022 Albumin [Mass/Vol] 3.8 g/dL Low 3.9-5.0 [facility] Comment on above: Performed By: #### C MP, CBC, LIPID, VITAMIN D, TSH 1, B12 1 #### Main Lab - [facility] [address] [place], [place] [address] Albumin/Globulin [Mass ratio] 1.0 {ratio} Low 1.1-1.8 [facility] Comment on above: Performed By: #### C MP, CBC, LIPID, VITAMIN D, TSH 1, B12 1 #### Main Lab - [facility] [address] [place] [address] ALP [Catalytic activity/Vol] 172 U/L High 43-122 [facility] Comment on above: Performed By: #### C MP, CBC, LIPID, VITAMIN D, TSH 1, B12 1 #### Main Lab - [facility] [address] [place] [address] ALT [Catalytic activity/Vol] 18 U/L Normal 7-56 [facility] Comment on above: Performed By: #### C MP, CBC, LIPID, VITAMIN D, TSH 1, B12 1 #### Main Lab - [facility] [address] [place] [address] Anion gap [Moles/Vol] 12 mmol/L Normal 9-18 [facility] Comment on above: Performed By: #### C MP, CBC, LIPID, VITAMIN D, TSH 1, B12 1 #### Main Lab - [facility] [address] [place] [address] 35097 AST [Catalytic activity/Vol] 16 U/L Normal 8-39 [facility] Comment on above: Performed By: #### C MP, CBC, LIPID, VITAMIN D, TSH 1, B12 1 #### Main Lab - [facility] [place], [place] [address] Bilirubin [Mass/Vol] 0.5 mg/dL Normal 0.2-1.3 [facility] Comment on above: Performed By: #### C MP, CBC, LIPID, VITAMIN D, TSH 1, B12 1 #### Main Lab - [facility] [address] [place], [place] [address] BUN/CREATININE RATIO 18.0 Ratio Normal 5.0-42.0 [facility] Comment on above: Performed By: #### C MP, CBC, LIPID, VITAMIN D, TSH 1, B12 1 #### Main Lab - [facility] [address] [place], [place] [address] Calcium [Mass/Vol] 9.3 mg/dL Normal 8.4-10.2 [facility] Comment on above: Performed By: #### C MP, CBC, LIPID, VITAMIN D, TSH 1, B12 1 #### Main Lab - [facility] [address] [place] [address] Chloride [Moles/Vol] 105 mmol/L Normal 98-107 [facility] Comment on above: Performed By: #### C MP, CBC, LIPID, VITAMIN D, TSH 1, B12 1 #### Main Lab - [facility] [address] [place] [address] 26958 CO2 [Moles/Vol] 29 mmol/L Normal 22-31 [facility] Comment on above: Performed By: #### C MP, CBC, LIPID, VITAMIN D, TSH 1, B12 1 #### Main Lab - [facility] [address] [place] [address]38 Creatinine [Mass/Vol] 0.89 mg/dL Normal 0.80-1.30 [facility] Comment on above: Performed By: #### C MP, CBC, LIPID, VITAMIN D, TSH 1, B12 1 #### Main Lab - [facility] [address] [place] [address]6625 ESTIMATED GLOMERULAR FILT RATE > 60.000 [facility] Comment on above: Performed By: #### C MP, CBC, LIPID, VITAMIN D, TSH 1, B12 1 #### Main Lab - [facility] [address] [place] [address] Globulin (S) [Mass/Vol] 3.7 g/dL Normal [facility] Comment on above: Performed By: #### C MP, CBC, LIPID, VITAMIN D, TSH 1, B12 1 #### Main Lab - [facility] [place], [place] [address] Glucose [Mass/Vol] 89 mg/dL Normal 70-99 [facility] Comment on above: Result Comment: The glucose range is based on recommendations from the [place] [employer] for fasting blood glucose range. Performed By: #### C MP, CBC, LIPID, VITAMIN D, TSH 1, B12 1 #### Main Lab - [facility] [address] [place], [place] [address] Potassium [Moles/Vol] 4.6 mmol/L Normal 3.6-5.0 [facility] Comment on above: Performed By: #### C MP, CBC, LIPID, VITAMIN D, TSH 1, B12 1 #### Main Lab - [facility] [address] [place], [place] [address] Protein [Mass/Vol] 7.5 g/dL Normal 6.3-8.2 [facility] Comment on above: Performed By: #### C MP, CBC, LIPID, VITAMIN D, TSH 1, B12 1 #### Main Lab - [facility] [place], [place] [address] Sodium [Moles/Vol] 141 mmol/L Normal 137-145 [facility] Comment on above: Performed By: #### C MP, CBC, LIPID, VITAMIN D, TSH 1, B12 1 #### Main Lab - [facility] [address] [place] [address] Urea nitrogen [Mass/Vol] 16 mg/dL Normal 7-21 [facility] Comment on above: Performed By: #### C MP, CBC, LIPID, VITAMIN D, TSH 1, B12 1 #### Main Lab - [facility] [address] [place], [place] [address] AGE,PATIENT 56 Years Normal [facility] Comment on above: Performed By: #### C MP, CBC, LIPID, VITAMIN D, TSH 1, B12 1 #### Main Lab - [facility] [address] [place] [address] Calcium [Mass/volume] in Ser um or Plasmaon 02-06-2022 Calcium [Mass/Vol] 9.3 mg/dL 8.4-10.2 [facility] Work Phone: Carbon dioxide, total [Moles /volume] in Serum or Plasmaon 02-06-2022 CO2 [Moles/Vol] 29 mmol/L 22-31 [facility] Work Phone: Cardiac heart disease risk [ Ratio] in Serum or Plasmaon 02-06-2022 Cardiac heart disease risk [Ratio] 3.891 [facility] [employer] Work Phone: Comment on above: Based on the results of the Cholesterol, Triglyceride, HDL Cholesterol, and LDL Cholesterol procedures, this patient has an average risk for developing Coronary Heart Disease. Chloride [Moles/volume] in S farrah or Plasmaon 02-06-2022 Chloride [Moles/Vol] 105 mmol/L 98-107 [facility] [employer] Work Phone: Cholesterol in LDL Calc [Mas s/Vol]on 02-06-2022 Cholesterol in LDL [Mass/Vol] 69 mg/dL 0-130 [facility] [employer] Phone: Comment on above: Expected Values:Karina rable: [...] LDL/Cholesterol in HDL [Mass ratio] 1.86 {ratio} [facility] [employer] Work Phone: Cobalamin (Vitamin B12) [Mas s/volume] in Serum or Plasmaon 02-06-2022 Cobalamin (Vitamin B12) [Mass/Vol] 738 pg/mL 194-934 [facility] [employer] Work Phone: Creatinine [Mass/volume] in Serum or Plasmaon 02-06-2022 Creatinine [Mass/Vol] 0.89 mg/dL 0.80-1.30 [facility] [employer] Work Phone: Determination of erythrocyte mean corpuscular volume (MCV)on 02-06-2022 MCV (RBC) [Entitic vol] 85.0 fL 78.0-100.0 [facility] [employer] Phone: Eosinophils Auto (Bld) [#/Vo l]on 02-06-2022 Eosinophils (Bld) [#/Vol] 0.1 10*3/uL 0.0-0.7 [facility] [employer] Work Phone: Eosinophils/100 WBC Auto (Bl d)on 02-06-2022 Eosinophils/100 WBC (Bld) 1.1 % 0.0-5.0 [facility] [employer] Work Phone: Erythrocyte distribution wid th Auto (RBC) [Ratio]on 02-06-2022 Erythrocyte distribution width (RBC) [Ratio] 15.9 % 11.5-14.0 [facility] [employer] Work Phone: Globulin [Mass/volume] in Se rumon 02-06-2022 Globulin (S) [Mass/Vol] 3.7 g/dL [facility] [employer] Work Phone: Glucose [Mass/volume] in Ser um or Plasmaon 02-06-2022 Glucose [Mass/Vol] 89 mg/dL 70-99 [facility] [employer] Work Phone: Comment on above: The glucose range is based on recommendations from the [place] [employer] for fasting blood glucose range. Hematocrit Auto (Bld) [Volum e fraction]on 02-06-2022 Hematocrit (Bld) [Volume fraction] 35.8 % 34.8-45.0 [facility] [employer] Work Phone: Hemoglobin [Mass/volume] in Bloodon 02-06-2022 Hemoglobin (Bld) [Mass/Vol] 12.1 g/dL 11.6-14.9 [facility] [employer] Work Phone: LIPID PANELon 02-06-2022 CARDIAC RISK 3.891 Normal [facility] Comment on above: Result Comment: Base d on the results of the Cholesterol, Triglyceride, HDL Cholesterol, and LDL Cholesterol procedures, this patient has an average risk for developing Coronary Heart Disease. Performed By: #### C MP, CBC, LIPID, VITAMIN D, TSH 1, B12 1 #### Main Lab - [facility] [address] [place] [address] Cholesterol [Mass/Vol] 144 mg/dL Normal 0-200 [facility] Comment on above: Performed By: #### C MP, CBC, LIPID, VITAMIN D, TSH 1, B12 1 #### Main Lab - [facility] [address] [place], [place] [address] Cholesterol in HDL [Mass/Vol] 37 mg/dL Normal 35-67 [facility] Comment on above: Performed By: #### C MP, CBC, LIPID, VITAMIN D, TSH 1, B12 1 #### Main Lab - [facility] [address] [place], [place] [address] LDL CHOLESTEROL,CALCULATED 69 mg/dL Normal 0-130 [facility] Comment on above: Result Comment: Expe cted [...] 1 #### Main Lab - [facility] [address] [place], [place] [address] LDL/HDL RATIO 1.86 Normal [facility] Comment on above: Performed By: #### C MP, CBC, LIPID, VITAMIN D, TSH 1, B12 1 #### Main Lab [facility] [place], [place] [address] Triglyceride [Mass/Vol] 190 mg/dL High 35-135 [facility] Comment on above: Result Comment: Lobito higgins from the [place] [employer]: Triglycerides Level Category -------- < 150 mg/dL Normal 150 - 199 mg/dL Borderline High 200 - 499 mg/dL High > or = 500 mg/dL Very High Performed By: #### C MP, CBC, LIPID, VITAMIN D, TSH 1, B12 1 #### Main Lab - [facility] [address] [place], [place] [address] Lymphocytes Auto (Bld) [#/Vo l]on 02-06-2022 Lymphocytes (Bld) [#/Vol] 1.9 10*3/uL 1.0-3.5 [facility] Work Phone: Lymphocytes/100 WBC Auto (Bl d)on 02-06-2022 Lymphocytes/100 WBC (Bld) 26.3 % 24.0-44.0 [facility] [employer] - [employer] | mentor | invest Work Phone: MCH Auto (RBC) [Entitic mass ]on 02-06-2022 MCH (RBC) [Entitic mass] 28.7 pg 27.0-31.0 [facility] [employer] | mentor | invest Work Phone: MCHC Auto (RBC) [Mass/Vol]on 02-06-2022 MCHC (RBC) [Mass/Vol] 33.7 g/dL 32.0-36.0 [facility] [employer] - [employer] | mentor | invest Work Phone: Monocytes Auto (Bld) [#/Vol] on 02-06-2022 Monocytes (Bld) [#/Vol] 0.6 10*3/uL 0.2-0.8 [facility] [employer] - [employer] | mentor | invest Work Phone: Monocytes/100 WBC Auto (Bld) on 02-06-2022 Monocytes/100 WBC (Bld) 8.1 % 1.7-9.3 [facility] [employer] - [employer] | mentor | invest Work Phone: Neutrophils Auto (Bld) [#/Vo l]on 02-06-2022 Neutrophils (Bld) [#/Vol] 4.7 10*3/uL 1.5-6.7 [facility] [employer] - [employer] | mentor | invest Work Phone: Neutrophils/100 WBC Auto (Bl d)on 02-06-2022 Neutrophils/100 WBC (Bld) 63.8 % 36.0-66.0 [facility] [employer] - [employer] | mentor | invest Work Phone: No Panel Informationon 02-06 Est Glomerular Filtrat Rate mL/min > 60.000 mL/min [facility] [employer] - [employer] | mentor | invest Work Phone: Platelet mean volume Auto (B ld) [Entitic vol]on 02-06-2022 Platelet mean volume (Bld) [Entitic vol] 9.4 fL 6.0-9.5 [facility] [employer] - innov[employer] | mentor | invest Work Phone: Platelets Auto (Bld) [#/Vol] on 02-06-2022 Platelets (Bld) [#/Vol] 167 10*3/uL 150-450 [facility] [employer] Work Phone: Potassium [Moles/volume] in Serum or Plasmaon 02-06-2022 Potassium [Moles/Vol] 4.6 mmol/L 3.6-5.0 [facility] [employer] Work Phone: Protein [Mass/volume] in Ser um or Plasmaon 02-06-2022 Protein [Mass/Vol] 7.5 g/dL 6.3-8.2 [facility] [employer] Work Phone: RBC Auto (Bld) [#/Vol]on RBC (Bld) [#/Vol] 4.21 10*6/uL 3.89-5.30 [facility] [employer] Work Phone: Serum or plasma alanine guzman otransferase measurement (enzymatic activity/volume)on 02-06-2022 ALT [Catalytic activity/Vol] 18 U/L 7-56 [facility] Work Phone: Serum or plasma alkaline tabitha sphatase measurement (enzymatic activity/volume)on 02-06-2022 ALP [Catalytic activity/Vol] 172 U/L 43-122 [facility] [employer] - [employer] | mentor | invest Work Phone: Serum or plasma cholesterol in HDL measurement (mass/volume)on 02-06-2022 Cholesterol in HDL [Mass/Vol] 37 mg/dL 35-67 [facility] [employer] - innov[employer] | mentor | invest Work Phone: Serum or plasma cholesterol measurement (mass/volume)on 02-06-2022 Cholesterol [Mass/Vol] 144 mg/dL 0-200 [facility] Work Phone: Serum or plasma thyroid stim ulating hormone (TSH) measurementon 02-06-2022 TSH Qn 0.63 m[IU]/L 0.45-5.33 [facility] Work Phone: Serum or plasma urea nitroge n measurement (mass/volume)on 02-06-2022 Urea nitrogen [Mass/Vol] 16 mg/dL 7-21 [facility] [employer] - [employer] | mentor | invest Work Phone: Sodium [Moles/volume] in Ser um or Plasmaon 02-06-2022 Sodium [Moles/Vol] 141 mmol/L 137-145 [facility] [employer] - innovate | mentor | invest Work Phone: THYROID STIMULATING HORMONEo n 02-06-2022 TSH Qn 0.63 m[IU]/L Normal 0.45-5.33 [facility] Comment on above: Performed By: #### C MP, CBC, LIPID, VITAMIN D, TSH 1, B12 1 #### Main Lab - [facility] [address] [place] [address] Total vitamin D measuremento n 02-06-2022 Vitamin D+Metabolites [Mass/Vol] 43.3 ng/mL 30-100 [facility] [employer] - innovate | mentor | invest Work Phone: Comment on above: In 2010, the Milad Good Subcommittee of the Endocrine Society Task Force established the guidelines below for recommended serum 25(OH) vitamin D levels.Deficient <20 ng/mLInsufficient 20 to <30 ng/mLSufficient 30 to 100 ng/mLUpper Safety Limit >100 ng/mL Triglyceride Calc [Mass/Vol] on 02-06-2022 Triglyceride [Mass/Vol] 190 mg/dL 35-135 [facility] [employer] - innovate | mentor | invest Work Phone: Comment on above: Guidelines from the [place] [employer]: Triglycerides Level Category -------- < 150 mg/dL Normal 150 - 199 mg/dL Borderline High 200 - 499 mg/dL High > or = 500 mg/dL Very High Urea/Creatinine [Mass Ratio] in Serum or Plasmaon 02-06-2022 Urea/Creatinine [Mass ratio] 18.0 Ratio 5.0-42.0 [facility] [employer] - innov[employer] | mentor | invest Work Phone: VITAMIN B12on 02-06-2022 Cobalamin (Vitamin B12) [Mass/Vol] 738 pg/mL Normal 194-934 [facility] Comment on above: Performed By: #### C MP, CBC, LIPID, VITAMIN D, TSH 1, B12 1 #### Main Lab - [facility] [address] [place], [place] [address] VITAMIN Don 02-06-2022 VITAMIN D 43.3 ng/mL Normal 30-100 [facility] Comment on above: Result Comment: In , [...] 1 #### Main Lab - [facility] [address] [place], [place] [address] WBC Auto (Bld) [#/Vol]on WBC (Bld) [#/Vol] 7.4 10*3/uL 4.0-10.5 [facility] [employer] - innovate | mentor | invest Work Phone: THYROID STIMULATING IMMUNOGL OBULINon 10-14-2021 THYROID STIMULATING IMMUNOGLOBULIN SEE BELOW Normal [facility] Comment on above: Result Comment: Thyr oid [...] medical history, and other findings. Performed By: [facility] [address] [place] [address] [employer] Captain: Rina Dexter MD Performed By: #### [id number] #### [employer] [place] [id number] No Panel Informationon 10-13 Atrial Rate [facility] P Treichlers [facility] P-R Interval [facility] Q-T Interval [facility] Q-T Interval (corrected) [facility] QRS Duration [facility] QTC Calculation (Bezet) [facility] R Treichlers [facility] T Treichlers [facility] Ventricular Rate [facility] TSH SUMMER BABYSITTER ABon 10-13-2021 TSH RECEPTOR AB <0.80 Normal <=1.75 [facility] Comment on above: Result Comment: Perf ormed By: [facility] [address] [place], [place] [id number] [employer]: Rina Dexter MD Performed By: #### 4 [id number] #### [place] [address] THYROID PEROXIDASEon 022 THYROID PEROXIDASE 3.6 IU/mL Normal 0.0-9.0 [facility] Comment on above: Result Comment: Perf ormed By: [facility] [address] [place] [address] [employer]: Rina Dexter MD Performed By: #### 4 [id number] #### [place] [address] FREE T3on 10-10-2021 Free T3 [Mass/Vol] 4.5 pg/mL Normal 2.8-5.3 [facility] Comment on above: Performed By: #### 4 [id number] #### [place] [address] FREE T4on 10-10-2021 Free T4 [Mass/Vol] 1.23 ng/dL Normal 0.78-2.19 [facility] Comment on above: Performed By: #### 4 [id number] #### [place] [address] No Panel Informationon 10-10 [facility] T3, Freeon 10-10-2021 Free T3 [Mass/Vol] 4.5 pg/mL 2.8 - 5.3 pg/mL [facility] T4, Freeon 10-10-2021 Free T4 [Mass/Vol] 1.23 ng/dL 0.78 - 2. 19 ng/dL [facility] TSHon 10-10-2021 TSH 0.539 uIU/mL Normal 0.465-4.680 [facility] Comment on above: Performed By: #### 4 [id number] #### [place] [address] TSH Qn 0.539 m[IU]/L [facility] Basic metabolic 2000 panelOr dered By: [...] [Vol rate/Area] Laboratory test result Normal Sly Del Rio D.P.M. Work Phone: Glucose [Mass/Vol] 493 mg/dL Critically high 70 - 99 Kendra Nix D.P.M. Work Phone: Comment on above: Critical result GLU 493 mg/dL called to and read back by DORIAN ARAGON RN PAT at 16-Aug-2021 13:42 by TERESA. The glucose range is based on recommendations from the [place] [employer] for fasting blood glucose range. Potassium [Moles/Vol] 3.9 mmol/L Normal 3.6 - 5.0 Gisselle CollinsP.M. Work Phone: Sodium [Moles/Vol] 132 mmol/L Low 137 - 145 Gisselle LemosP.M. Work Phone: Urea nitrogen [Mass/Vol] 13 mg/dL Normal 7 - 21 Gisselle LemosP.M. Work Phone: Urea/Creatinine [Mass ratio] 14.6 Ratio Normal 5.0 - 42.0 Naomi Lemos.P.M. Work Phone: Hemogram, platelets & Differ ential panel (Bld)Ordered By: SLY NIX on 08-16-2021 Basophils (Bld) [#/Vol] 0.0 10*3/uL Normal 0.0 - 0.2 Gisselle LemosP.M. Work Phone: Basophils/100 WBC (Bld) 0.7 % Normal 0.0 - 1.0 Gisselle LemosP.M. Work Phone: Eosinophils (Bld) [#/Vol] 0.1 10*3/uL [...] [#/Vol] 1.5 10*3/uL Normal 1.0 - 3.5 Gisselle LemosP.M. Work Phone: Lymphocytes/100 WBC (Bld) 28.5 % [...] 9.3 % Normal 1.7 - 9.3 Gisselle LemosP.M. Work Phone: Neutrophils (Bld) [#/Vol] 3.1 10*3/uL [...] [#/Vol] 4.47 10*6/uL Normal 3.89 - 5.30 Jamar ph Boyd, D.P.M. Work Phone: WBC corrected for nucl RBC Auto (Bld) [#/Vol] 5.1 10^3/uL Normal 4.0 - 10.5 Sly Del Rio D.P.M. Work Phone: Laboratory test findingOrder ed By: SLY NIX on 08-16-2021 TSH Qn 0.22 m[IU]/L Low 0.45 - 5.33 Sly mcguire D.P.M. Work Phone: Comment on above: Main Lab - [place] [address] Basic metabolic 2000 panelOr dered By: SLY NIX on 05-29-2021 Age [Time] 55 Years Naomi Lemos.P.M. Work Phone: Anion gap [Moles/Vol] 14 mmol/L Normal 9 - 18 Asa Nix D.P.M. Work Phone: Calcium [Mass/Vol] 9.4 mg/dL Normal 8.4 - 10.2 Sly Nix D.P.M. Work Phone: Chloride [Moles/Vol] 103 mmol/L Normal 98 - 107 Delores ph D D.P.M. Work Phone: CO2 [Moles/Vol] 26 mmol/L Normal 22 - 31 Sly Del Rio D.P.M. Work Phone: Creatinine [Mass/Vol] 0.91 mg/dL Normal 0.80 - 1.30 Lisseth Nix D.P.M. Work Phone: GFR/1.73 sq M.predicted MDRD (S/P/Bld) [Vol rate/Area] Laboratory test result Normal Sly Del Rio D.P.M. Work Phone: Glucose [Mass/Vol] 165 mg/dL High 70 - 99 Naomi Lemos.P.M. Work Phone: Comment on above: The glucose range is based on recommendations from the [place] [employer] for fasting blood glucose range. Potassium [Moles/Vol] 4.0 mmol/L Normal 3.6 - 5.0 Gisselle CollinsP.M. Work Phone: Sodium [Moles/Vol] 139 mmol/L Normal [...] (Bld) 1.0 % Normal 0.0 - 1.0 Naomi Lemos.P.M. Work Phone: Eosinophils (Bld) [#/Vol] 0.1 10*3/uL Normal 0.0 - 0.7 Naomi Lemos.P.M. Work Phone: Eosinophils/100 WBC (Bld) 1.2 % Normal 0.0 - 5.0 Naomi Lemos.P.M. Work Phone: Erythrocyte distribution width (RBC) [Ratio] 16.2 % High 11.5 - 14.0 Naomi Lemos.P.M. Work Phone: Hematocrit (Bld) [Volume fraction] 38.8 % Normal 34.8 - 45.0 Naomi Lemos.P.M. Work Phone: Hemoglobin (Bld) [Mass/Vol] 12.8 g/dL Normal 11.6 - 14.9 Naomi Lemos.P.M. Work Phone: Lymphocytes (Bld) [#/Vol] 1.6 10*3/uL Normal 1.0 - 3.5 Gisselle LemosP.M. Work Phone: Lymphocytes/100 WBC (Bld) 27.4 % Normal 24.0 - 44.0 Gisselle LemosP.M. Work Phone: MCH (RBC) [Entitic mass] 28.0 pg Normal 27.0 - 31.0 Gisselle LemosP.M. Work Phone: MCHC (RBC) [Mass/Vol] 33.0 g/dL Normal 32.0 - 36.0 Lisseth Gisselle GilbertP.M. Work Phone: MCV (RBC) [Entitic vol] 84.8 fL Normal 78.0 - 100.0 Gisselle LemosP.M. Work Phone: Monocytes (Bld) [#/Vol] 0.5 10*3/uL Normal 0.2 - 0.8 Gisselle LemosP.M. Work Phone: Monocytes/100 WBC (Bld) 8.0 % Normal 1.7 - 9.3 Gisselle LemosP.M. Work Phone: Neutrophils (Bld) [#/Vol] 3.6 10*3/uL [...] Phone: Comment on above: Main Lab - [place] [address] ABO and Rh group panel (Bld) Ordered By: THOMAS SILVA on 12-19-2020 Bleeding time Laboratory test result Gisselle LemosP.M. Work Phone: Note Laboratory test result Gisselle MuellerP.MMiguelina Work Phone: Comment on above: Legend: ABN=AB Negative / ABP=AB Positive / AN=A Negative / AP=A Positive / BN=B Negative / BP=B Positive / ON=O Negative / OP=O Positive / POOL=Pooled / UNK=Unknown Basic metabolic 2000 panelOr dered By: THOMAS SILVA on 12-19-2020 Age [Time] 55 Years Gisselle LemosP.M. Work Phone: Anion gap [Moles/Vol] 12 mmol/L [...] [Mass/Vol] 0.85 mg/dL Normal 0.80 - 1.30 Gisselle MuellerP.M. Work Phone: GFR/1.73 sq M.predicted MDRD (S/P/Bld) [Vol rate/Area] Laboratory test result Normal Naomi Cervantes.P.M. Work Phone: Glucose [Mass/Vol] 197 mg/dL High 70 - 99 Sly Nix D.P.M. Work Phone: Comment on above: The glucose range is based on recommendations from the [place] [employer] for fasting blood glucose range. Potassium [Moles/Vol] 3.1 mmol/L Low 3.6 - 5.0 Asa Nix D.P.M. Work Phone: Sodium [Moles/Vol] 136 mmol/L Low 137 - 145 Naomi Lemos.P.M. Work Phone: Urea nitrogen [Mass/Vol] 13 mg/dL Normal 7 - 21 Naomi Lemos.P.M. Work Phone: Urea/Creatinine [Mass ratio] 15.3 [...] 0.0 X103 Normal 0.0 - 0.2 Gisselle LemosP.M. Work Phone: Basophils/100 WBC (Bld) 0 % Normal 0 - 1 Gisselle LemosP.M. Work Phone: Eosinophils (Bld) [#/Vol] 0.1 X103 [...] [Mass/Vol] 12.3 g/dL Normal 11.6 - 14.9 Gisselle LemosP.M. Work Phone: Lymphocytes (Bld) [#/Vol] 1.7 X103 Normal 1.0 - 3.5 Gisselle LemosP.M. Work Phone: Lymphocytes/100 WBC (Bld) 27 % [...] 0.6 X103 Normal 0.2 - 0.8 Naomi Lemos.P.M. Work Phone: Monocytes/100 WBC (Bld) 10 % High 2 - 5 Gisselle LemosP.M. Work Phone: Neutrophils (Bld) [#/Vol] 3.7 103uL Normal 1.5 - 6.7 Naomi Lemos.P.M. Work Phone: Platelet mean volume (Bld) [Entitic vol] 8.7 fL Normal 6.0 - 9.5 Naomi Lemos.P.M. Work Phone: Platelets (Bld) [#/Vol] 163 10*3/uL Normal 150 - 450 Naomi Lemos.P.M. Work Phone: RBC (Bld) [#/Vol] 4.36 10*6/uL Normal 3.89 - 5.30 Delores ph D D.P.M. Work Phone: Segmented neutrophils/100 WBC (Bld) 61 % Normal 36 - 66 Naomi Lemos.P.M. Work Phone: WBC corrected for nucl RBC Auto (Bld) [#/Vol] 6.1 10^3/uL Normal 4.0 - 10.5 Naomi Cervantes.P.M. Work Phone: Laboratory test findingOrder ed By: THOMAS SILVA on 12-19-2020 Bacteria identified Cx Nom (U) Laboratory test result Sly Del Rio D.P.M. Work Phone: Comment on above: VIRIDANS STREPTOCOCC US: IsolatedURINE CULTURE: COLONY COUNT(URINE):>100,000 Laboratory test findingon TSH Qn 0.41 m[IU]/L Low 0.45 - 5.33 Fina LarsonMMiguelina Work Phone: Comment on above: Main Lab - [facility] [address] [place] [address] PT panel Coag (PPP)Ordered B y: THOMAS [...] SILVA on 12-19-2020 Note Laboratory test result Gisselle MuellerP.M. Work Phone: Comment on above: Legend: ABN=AB Negative / ABP=AB Positive / AN=A Negative / AP=A Positive / BN=B Negative / BP=B Positive / ON=O Negative / OP=O Positive / POOL=Pooled / UNK=Unknown Urine ProtocolOrdered By: EMILEE SILVA on 12-19-2020 Bacteria LM.HPF (Urine sed) [#/Area] Laboratory test result Abnormal Gisselle CervantesPMiguelinaM. Work Phone: Clarity (U) Laboratory test result Gisselle DelgadoPMiguelinaMMiguelina Work Phone: Color (U) Laboratory test result Gisselle MuellerP.M. Work Phone: Epithelial cells LM.HPF (Urine sed) [#/Area] Laboratory test result Abnormal Gisselle CervantesP.M. Work Phone: Glucose Test strip (U) [Mass/Vol] Laboratory test result Gisselle CervantesP.M. Work Phone: Hemoglobin Ql (U) Laboratory test result Abnormal Gisselle LemosP.M. Work Phone: Ketones (U) [Mass/Vol] Laboratory test result Gisselle LemosP.M. Work Phone: Leukocyte esterase Test strip Ql (U) Laboratory test result Naomi Lemos.P.M. Work Phone: Mucus LM.LPF (Urine sed) [#/Area] Laboratory test result Naomi Cervantes.P.M. Work Phone: Nitrite Ql (U) Laboratory test result Naomi Lemos.P.M. Work Phone: pH (U) 5.0 [pH] 5.0 - 8.0 Naomi Lemos.P.M. Work Phone: Protein (U) [Mass/Vol] Laboratory test result Gisselle LemosP.M. Work Phone: RBC LM.HPF (Urine sed) [#/Area] Laboratory test result Naomi Cervantes.P.M. Work Phone: Specific gravity (U) [Rel density] 1.015 SP.GR. Naomi Lemos.P.M. Work Phone: WBC LM.HPF (Urine sed) [#/Area] Laboratory test result Sly Del Rio D.P.M. Work Phone: Comment on above: Unless otherwise not ed, urine microscopic evaluation is normal. ECG 12-LEADon 10-07-2020 Atrial Rate [facility] P Treichlers [facility] P-R Interval [facility] Q-T Interval [facility] Q-T Interval (corrected) [facility] QRS Duration [facility] QTC Calculation (Bezet) [facility] R Treichlers [facility] T Treichlers [facility] Ventricular Rate [facility] HGB A1C WITH MBG VALUE (EXTE RNAL)on 09-01-2019 Glucose [Mass/Vol] 204 mg/dL [facility] HbA1c (Bld) [Mass fraction] 7.9 % High 4 - 6 % [facility] Interpretation and review of laboratory results Abnormal [facility] Original Ordering Provider: David Silva III, MD [facility] ECG 12-LEADon 08-21-2019 Atrial Rate [facility] P Treichlers [facility] P-R Interval [facility] Q-T Interval [facility] Q-T Interval (corrected) [facility] QRS Duration [facility] QTC Calculation (Bezet) [facility] R Treichlers [facility] T Treichlers [facility] Ventricular Rate [facility] CBC WITH AUTO DIFF (EXTERNAL )on 08-18-2019 BASO, ABSOLUTE (AUTO) 0.0 Gen [facility] Basophils/100 WBC (Bld) 0.6 % 0 - 1 % [facility] Eosinophils (Bld) [#/Vol] 0.1 10*3/uL [facility] Eosinophils/100 WBC (Bld) 1.8 % 0 - 5 % [facility] Erythrocyte distribution width (RBC) [Ratio] 17.0 % High 11.5 - 14 % [facility] Hematocrit (Bld) [Volume fraction] 36.5 % 34.8 - 45 % [facility] Hemoglobin (Bld) [Mass/Vol] 11.8 g/dL 11.6 - 14.9 g/dL [facility] Interpretation and review of laboratory results Abnormal [facility] Lymphocytes (Bld) [#/Vol] 1.6 10*3/uL [facility] Lymphocytes/100 WBC (Bld) 24.3 % 24 - 44 % [facility] MCH (RBC) [Entitic mass] 32.3 g/dL 32 - 36 g/dL [facility] MCH (RBC) [Entitic mass] 27.2 pg 27 - 31 pg [facility] MCV (RBC) [Entitic vol] 84.1 fL 78 - 100 fL [facility] Monocytes (Bld) [#/Vol] 0.6 10*3/uL [facility] Monocytes/100 WBC (Bld) 9.5 % High 1.7 - 9.3 % [facility] NEUTROPHILS, ABSOLUTE (AUTO) 4.3 [facility] Neutrophils/100 WBC (Bld) 63.8 % 36 - 66 % [facility] Platelet mean volume (Bld) [Entitic vol] 9.2 fL 6 - 9.5 fl [facility] Platelets (Bld) [#/Vol] 190 10*3/uL [facility] RBC (Bld) [#/Vol] 4.34 10*6/uL [facility] WBC (Bld) [#/Vol] 6.7 10*3/uL [facility] Original Ordering Provider: Ha Rivas [facility] COMPREHENSIVE METABOLIC PANE L (EXTERNAL)on 08-18-2019 Age - Reported 54 Years [facility] Original Ordering Provider: Ha Rivas [facility] BMP with eGFRon 05-30-2018 Age Reported 52 years Normal [facility] Comment on above: Performed By: #### 2 [id number] ####[facility],[address] [place], [place] [id number] Anion gap 3 molar conc 11 mmol/L Normal 10 - 20 [facility] Comment on above: Performed By: #### 2 [id number] ####[facility],[address] [place] [address] Calcium mass conc 9.6 mg/dL Normal 8.6 - 10.2 [facility] Comment on above: Performed By: #### 2 [id number] ####[facility],[address] [place] [address] Chloride molar conc 100 mmol/L Normal 98 - 107 [facility] Comment on above: Performed By: #### 2 10415 ####[facility],[address] [place] [address] CO2 molar conc 29.5 mmol/L Normal 21.0 - 31.0 [facility] Comment on above: Performed By: #### 2 [id number] ####[facility],[address] [place] [address] Creatinine mass conc 0.9 mg/dL Normal 0.6 - 1.2 [facility] Comment on above: Performed By: #### 2 [id number] ####[facility],[address] [place] [address] GFR/1.73 sq M predicted among non-blacks MDRD vol rate/area (S/P/Bld) Normal [facility] Comment on above: Result Comment: BASI C METABOLIC PANEL Performed By: #### 2 [id number] ####[facility],[address] [place], [place] [id number] GFR/1.73 sq M predicted among non-blacks MDRD vol rate/area (S/P/Bld) mL/min/{1.73_m2} Normal 60 - 999 [facility] Comment on above: Result Comment: ACCO RDING TO THE NATIONAL KIDNEY DISEASE EDUCATION PROGRAM(NKDE), A NORMAL eGFRIS A VALUE GREATER THAN OR EQUAL TO 60 ML/MIN/1.73 SQ METERS.CHRONIC KIDNEY DISEASE: <60mL/MIN/1.73 SQ METERSKIDNEY FAILURE: <15mL/MIN/1.73 SQ METERSTHIS TEST SHOULD ONLY BE USED FOR PATIENTS 18 YEARS OF AGE AND OLDER. Performed By: #### 2 [id number] ####[facility],[address] [place] [address] Glucose mass conc 317 mg/dL High 74 - 106 [facility] Comment on above: Performed By: #### 2 10596 ####[facility],[address] [place], [place] [id number] Potassium molar conc 4.3 mmol/L Normal 3.5 - 5.1 [facility] Comment on above: Performed By: #### 2 [id number] ####[place] [id number] Sodium molar conc 136 mmol/L Normal 136 - 145 [facility] Comment on above: Performed By: #### 2 13117 ####[facility],[address] [place], [place] [id number] Urea nitrogen mass conc 14 mg/dL Normal 6 - 20 [facility] Comment on above: Performed By: #### 2 [id number] ####[address] [address] CBCon 05-30-2018 Basophils Auto #/vol (Bld) 0.10 x10EE3/UL Normal 0.00 - 0.10 [facility] Comment on above: Performed By: #### 2 [id number] ####[place] [address],[place] [address] Basophils/100 WBC Auto (Bld) 1.0 % Normal 0.0 - 2.0 [facility] Comment on above: Performed By: #### 2 94822 ####[facility],[address] [place], [place] [address] CBC Normal [facility] Comment on above: Result Comment: CBC- COMPLETE BLOOD COUNT Performed By: #### 2 92361 ####[facility],[address] [place], [place] [address] Eosinophils Auto #/vol (Bld) 0.10 x10EE3/UL Normal 0.00 - 0.50 [facility] Comment on above: Performed By: #### 2 01706 ####[facility],[address] [place] [address] Eosinophils/100 WBC Auto (Bld) 1.4 % Normal 0.0 - 7.0 [facility] Comment on above: Performed By: #### 2 40178 ####[facility],[address] [place], [place] [id number] Erythrocyte distribution width Auto Ratio (RBC) 16.6 % High 12.0 - 15.6 [facility] Comment on above: Performed By: #### 2 00106 ####[facility],[address] [place], [place] [id number] Hematocrit Auto Volume Fraction (Bld) 34.5 % Normal 34.0 - 46.0 [facility] [facility] Comment on above: Performed By: #### 2 [id number] ####[facility],[address] [place] [address] Hemoglobin mass conc (Bld) 11.4 g/dL Low 12.0 - 16.0 [facility] Comment on above: Performed By: #### 2 [id number] ####[facility],[address] [place] [address] 89667 Lymphocytes Auto #/vol (Bld) 1.30 x10EE3/UL Normal 0.80 - 2.80 [facility] Comment on above: Performed By: #### 2 [id number] ####[facility],[address] [place] [address] Lymphocytes/100 WBC Auto (Bld) 18.5 % Low 20.0 - 45.0 [facility] Comment on above: Performed By: #### 2 00046 ####[facility],[address] [place] [address] MANUAL DIFF N/A Normal [facility] Comment on above: Performed By: #### 2 [id number] ####[facility],[address] [place] [address] MCH Auto Entitic mass (RBC) 26 pg Low 27 - 33 [facility] Comment on above: Performed By: #### 2 [id number] ####[facility],[address] [place] [address] MCHC Auto mass conc (RBC) 33 X10 3 Normal 32 - 36 [facility] Comment on above: Performed By: #### 2 88196 ####[facility],[address] [place] [address] MCV Auto Entitic volume (RBC) 80 fL Normal 80 - 99 [facility] Comment on above: Performed By: #### 2 42074 ####[facility],[address] [place], [place] [id number] Monocytes Auto #/vol (Bld) 0.50 x10EE3/UL Normal 0.20 - 1.00 [facility] Comment on above: Performed By: #### 2 [id number] ####[facility],[address] [place] [address] MONOS % 7.1 % Normal 0.0 - 10.0 [facility] Comment on above: Performed By: #### 2 75269 ####[facility],[address] [place] [address] Morphology Interp Barak (Bld) N/A Normal [facility] Comment on above: Result Comment: {CD] Performed By: #### 2 [id number] ####[facility],[address] [place] [address] Neutrophils Auto #/vol (Bld) 5.20 x10EE3/UL Normal 1.50 - 7.10 [facility] Comment on above: Performed By: #### 2 08611 ####[facility],[address] [place] [address]59 Neutrophils/100 WBC Auto (Bld) 72.0 % Normal 46.0 - 76.0 [facility] Comment on above: Performed By: #### 2 06848 ####[facility],[address] [place] [address] Platelet mean volume Auto Entitic volume (Bld) 9.4 fL Normal 6.6 - 10.5 [facility] Comment on above: Result Comment: AUTO MATED DIFFERENTIAL Performed By: #### 2 [id number] ####[facility],[address] [place] [address] Platelets Auto #/vol (Bld) 195 x10EE3/UL Normal 150 - 450 [facility] Comment on above: Performed By: #### 2 54093 ####[facility],[address] [place] [address]678 RBC Auto #/vol (Bld) 4.33 x 10EE6/UL Normal 4.10 - 5.3 0 [facility] Comment on above: Performed By: #### 2 57622 ####[facility],[address] [place] [address]47 WBC Auto #/vol (Bld) 7.3 x 10EE3/UL Normal 4.5 - 10.8 [facility] Comment on above: Performed By: #### 2 18930 ####[facility],[address] [place] [address]44 HGB A1Con 05-30-2018 Hemoglobin A1c/Hemoglobin.total mass fraction (Bld) 9.4 % High 4.4 - 6.4 [facility] Comment on above: Result Comment: {HB] {A1] Performed By: #### 2 [id number] ####[facility],[address] [place] [address]4470 Basic Panelon 03-12-2018 Creatinine [Mass/Vol] 0.73 mg/dL Normal 0.51-0.95 [facility] Comment on above: Performed By: #### P 8 #### [facility] [address] [place], [place] [address] Anion gap [Moles/Vol] 9 mmol/L Normal 8-16 [facility] Comment on above: Performed By: #### P 8 #### [facility] [address] [place], [place] [address] Calcium [Mass/Vol] 8.7 mg/dL Normal 8.5-10.1 [facility] Comment on above: Performed By: #### P 8 #### [facility] [address] [place], [place] [address] CO2 [Moles/Vol] 29 mmol/L Normal 21-32 [facility] Comment on above: Performed By: #### P 8 #### [facility] [address] [place], [place] [address] Glucose [Mass/Vol] 173 mg/dL High 70-99 [facility] Comment on above: Performed By: #### P 8 #### [facility] [address] [place], [place] [address] Urea nitrogen [Mass/Vol] 18 mg/dL Normal 7-18 [facility] Comment on above: Performed By: #### P 8 #### [facility] [address] [place], [place] [address] Chloride [Moles/Vol] 102 mmol/L Normal 98-107 [facility] Comment on above: Performed By: #### P 8 #### [facility] [address] [place], [place] [address] Potassium [Moles/Vol] 4.1 mmol/L Normal 3.5-5.1 [facility] Comment on above: Performed By: #### P 8 #### [facility] [address] [place] [address] Sodium [Moles/Vol] 136 mmol/L Normal 136-145 [facility] Comment on above: Performed By: #### P 8 #### [facility] [address] [place] [address] Hemogramon 03-12-2018 Erythrocyte distribution width (RBC) [Ratio] 15.6 % High 11.7-14.4 [facility] Comment on above: Performed By: #### C BC1 #### [facility] [address] [place] [address] Hematocrit (Bld) [Volume fraction] 32.5 % Low 34.1-44.9 [facility] Comment on above: Performed By: #### C BC1 #### [facility] [address] [place] [address] Hemoglobin (Bld) [Mass/Vol] 9.9 g/dL Low 11.2-15.7 [facility] Comment on above: Performed By: #### C BC1 #### [facility] [address] [place] [address] MCH (RBC) [Entitic mass] 26.3 pg Normal 25.6-32.2 [facility] Comment on above: Performed By: #### C BC1 #### [facility] [address] [place] [address] MCHC (RBC) [Mass/Vol] 30.5 % Low 31.6-34.8 [facility] Comment on above: Performed By: #### C BC1 #### [facility] [address] [place] [address] MCV (RBC) [Entitic vol] 86.2 fL Normal 79.4-94.8 [facility] Comment on above: Performed By: #### C BC1 #### [facility] [address] [place] [address] Platelet mean volume (Bld) [Entitic vol] 10.7 fL Normal 9.4-12.3 [facility] [place] Comment on above: Performed By: #### C BC1 #### [facility] [address] [place] [address] Platelets (Bld) [#/Vol] 209 thou/cmm Normal 182-369 [facility] Comment on above: Performed By: #### C BC1 #### [facility] [address] [place] [address] RBC (Bld) [#/Vol] 3.77 mil/cmm Low 3.93-5.22 [facility] Comment on above: Performed By: #### C BC1 #### [place] [address] RDW SD 48.6 fl High 36.4-46.3 [facility] Comment on above: Performed By: #### C BC1 #### [facility] [address] [place] [address] WBC (Bld) [#/Vol] 8.31 thou/cmm Normal 3.98-10.04 [facility] Comment on above: Performed By: #### C BC1 #### [place] [address] MDRD GFRon 03-12-2018 GFR/1.73 sq M predicted among non-blacks MDRD (S/P/Bld) [Vol rate/Area] mL/min/{1.73_m2} Normal >60mL/min/1. 73m2 [facility] Comment on above: Result Comment: If t he patient is , multiply the result by 1.210. Performed By: #### G FR #### [place] [address] Office Visit: Diabetes follo w upon 06-11-2017 Documentation of current medications (procedure) Done Invalid Interpretation Code [facility] Work Phone: PROGRESSon 03-29-2017 PROGRESS HNO ID: [id number]: Brionna Ramírez CTS (Ct)ervice: (none)Author Type: Clinical TechnicianType: Progress NotesFiled: 03/29/2017 12:10 PMNote Text:NAME:Michelle CoteDATE: March 29, 2017CCF#: [id number] Extremity X-Ray(s): Foot, Left and Wt. Bearing COMPLETEDTECH ID SIGN: BRIONNA RAMÍREZ [facility] XR FOOT 3V AP/LAT/OBL LTon 0 03-29-2017 XR FOOT 3V AP/LAT/OBL LT * * *Final Report* * *DATE OF EXAM: Mar 29 2017 10:50AM ELVI 5336 - XR FOOT 3V AP/LAT/OBL LT / REASON: [id number], unspecified * * * * Physician Interpretation * * * * HISTORY: PAIN-IMAGES PER DR PROTOCOL. Pain, unspecified .TECHNIQUE: XR FOOT 3V AP/LAT/OBL LT Laterality: LEFT Number of different views (projections): 3COMPARISON: NoneRESULT:Normal alignment on the standing projections. No fracture, no focal active periostitis. Some chronic benign remodeling of the dorsal aspect of the navicular bone. Joint spaces are maintained.IMPRESSION:B enign chronic remodeling of the navicular bone. No acute bony process.Transcriptionis t: PSCB Transcribe Date/Time: Mar 29 2017 11:49ADictated by : JORDY DE OLIVEIRA MDThis examination was interpreted and the report reviewed and electronically signed by: JORDY DE OLIVEIRA MD on Mar 29 2017 11:50AM [id number] [facility] Office Visit: Diabetes follo w upon 11-27-2016 Alcoholism counseling (procedure) no Invalid Interpretation Code [facility] Work Phone: Dietary management education, guidance, and counseling (procedure) yes Invalid Interpretation Code [facility] Work Phone: Fall risk assessment Fall risk assessment Invali d Interpretation Code [facility] Work Phone: Tobacco smoking status NHIS Never Invalid Interpretation Code [facility] Work Phone: Tobacco use [facility] Never smoker Invalid Interpretation Code [facility] Work Phone: Chart Maintenanceon 09-11-19 17 Triglyceride 84 mg/dL Invalid Interpretation Code [facility] Work Phone: Lab Report: Vitamin D 1,25-D ihydroxyon 09-07-2016 VITD 1,25 07870 48.7 Invalid Interpretation Code 19.9-79.3 [facility] Work Phone: Lab Report: Comprehensive Wa ally Leyva 09-04-2016 Alanine aminotransferase (ALT) 24 U/L Invalid [...] Aspartate aminotransferase (AST) 14 U/L Low 15-37 [facility] Work Phone: Bilirubin (total) 0.40 mg/dL Invalid Interpretation Code 0.20-1.00 [facility] Work Phone: BUN/Creatinine Ratio 12.6 RATIO Invalid Interpretation Code 10-20 [facility] Work Phone: Calcium 8.6 mg/dL Invalid Interpretation Code 8.5-10.1 [facility] Work Phone: Chloride 101 mmol/L Invalid Interpretation Code 98-107 [facility] Work Phone: CO2 28.0 mmol/L Invalid Interpretation Code 21.0-32.0 [facility] Work Phone: Creatinine 0.71 mg/dL Invalid Interpretation Code 0.55-1.02 [facility] Work Phone: eGFR (non-black) 111 mL/min/{1.73_m2} Invalid Interpretation Code >60 [facility] Work Phone: eGFR (non-black) 92 mL/min/{1.73_m2} Invalid Interpretation Code >60 [facility] Work Phone: Globulin 3.7 g/dL High 2.3-3.5 [facility] Work Phone: Glucose mass conc 111 mg/dL High 70-110 [facility] Work Phone: Potassium molar conc 4.0 mmol/L Invalid Interpretation Code 3.5-5.1 [facility] Work Phone: Protein 7.4 g/dL Invalid Interpretation Code 6.4-8.2 [facility] Work Phone: Sodium 137 mmol/L Invalid Interpretation Code 136-145 [facility] Work Phone: Urea nitrogen 9 mg/dL Invalid Interpretation Code 7-18 [facility] Work Phone: Lab Report: Hemoglobin A1con 09-04-2016 Hemoglobin A1c/Hemoglobin.total mass fraction (Bld) 6.7 % High 4.2-6.3 [facility] Work Phone: Lab Report: Lipid Profileon 09-04-2016 Cholesterol 122 mg/dL Invalid Interpretation Code 200 [facility] Work Phone: HDL Cholesterol 43 mg/dL Invalid Interpretation Code [facility] Work Phone: LDL Cholesterol 57 mg/dL Invalid Interpretation Code 0-130 [facility] Work Phone: Triglyceride 108 mg/dL Invalid Interpretation Code [facility] Work Phone: very low density lipoproteins 22 mg/dL Invalid Interpretation Code 5-40 [facility] Work Phone: Lab Report: Microalb:Creat R atio,Random URon 09-04-2016 ACR (microalbumin/creatini ne) ratio 5.3 MG/G CRE Invalid Interpretation Code <30 mg/g CRE [facility] Work Phone: Urine, creatinine 153.00 mg/dL Invalid Interpretation Code NO RANGE EST. [facility] Work Phone: Urine, microalbumin 0.81 mg/dL Invalid Interpretation Code Units converted. See lab report for original value. [facility] Work Phone: Lab Report: Thyroid Stim Hor concepcion (TSH)on 09-04-2016 Thyroid stimulating hormone (TSH) 0.68 u[iU]/mL Invalid Interpretation Code 0.358-3.74 [facility] Work Phone: Office Visit: Transition of care [facility] 09-04-2016 Adult depression screening assessment Adult depression screening assessment Invalid Interpretation Code [facility] Work Phone: Office Visit: Transition of care [facility] 07-16-2016 Breast Mammogram screening Normal Bilateral Invalid Interpretation Code [facility] Work Phone: EKG Report: Jessica ECG Obse rvationson 03-16-2014 QTc Cantu 470 ms Invalid Interpretation Code [facility] Work Phone: Replaced Document: Jessica E CG Observationson 03-16-2014 EKG QRS axis 66 deg Invalid Interpretation Code [facility] Work Phone: Interpretation Electronic ventricul ar pacemaker -possibly demand type Pacemaker ECG, No further analysis INSUFFICIENT DATA Invalid Interpretation Code [facility] Work Phone: P Treichlers 30 deg Invalid Interpretation Code [facility] Work Phone: FL Interval 98 ms Invalid Interpretation Code [facility] Work Phone: Pulse (Heart Rate) 68 /min Invalid Interpretation Code [facility] Work Phone: Pulse (Heart Rate) 470 ms Invalid Interpretation Code [facility] Work Phone: QRS Duration 120 ms Invalid Interpretation Code [facility] Work Phone: QT Interval new path ms Invalid Interpretation Code [facility] Work Phone: T Treichlers 114 deg Invalid Interpretation Code [facility] Work Phone: Clinical Lists Update: 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 Erythrocytes (RBC) 3.79 10*6/uL [facility] Work Phone: Hematocrit (HCT) 33.6 % Low [facility] Work Phone: Hemoglobin mass conc (Bld) 11.0 g/dL Low [facility] Work Phone: MCH 29.0 pg Invalid Interpretation Code [facility] Work Phone: MCHC mass conc (RBC) 32.7 g/dL Invalid Interpretation Code [facility] Work Phone: MCV 88.7 fL Invalid Interpretation Code [facility] Work Phone: Platelets 173 10*3/mm3 Invalid Interpretation Code [facility] Work Phone: WBC (Leukocytes) 8.9 10*3/uL Invalid Interpretation Code [facility] Work Phone: Clinical Lists Update: 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 Lisseth Peñaloza MD Work Phone: [facility] 02-04-2025 10:06-0400 Body weight 114.[address] Lisseth Peñaloza MD Work Phone: [facility] 02-04-2025 10:06-0400 Diastolic blood pressure 71 mm[Hg] Dr. Lisseth Peñaloza MD Work Phone: [facility] 02-04-2025 10:06-0400 Heart rate 84 /min Dr. Lisseth Peñaloza MD Work Phone: [facility] 02-04-2025 10:06-0400 Respiratory rate 16 /min Dr. Lisseth Peñaloza MD Work Phone: [facility] 02-04-2025 10:06-0400 Systolic blood pressure 112 mm[Hg] Dr. Lisseth Peñaloza MD Work Phone: [facility] 02-03-2025 11:29-0400 Body height 175.[address] Lisseth Peñaloza MD Work Phone: [facility] 02-03-2025 11:29-0400 Body mass index (BMI) [Ratio] 37.3 kg/m2 Dr. Lisseth Peñaloza MD Work Phone: [facility] 02-03-2025 11:29-0400 Body temperature 97.1 [degF] Dr. Lisseth Peñaloza MD Work Phone: [facility] 02-03-2025 11:29-0400 Body weight 114.[address] Lisseth Peñaloza MD Work Phone: [facility] 02-03-2025 11:29-0400 Diastolic blood pressure 68 mm[Hg] Dr. Lisseth Peñaloza MD Work Phone: [facility] 02-03-2025 11:29-0400 Heart rate 72 /min Dr. Lisseth Peñaloza MD Work Phone: [facility] 02-03-2025 11:29-0400 Respiratory rate 16 /min Dr. Lisseth Peñaloza MD Work Phone: [facility] 02-03-2025 11:29-0400 SaO2% (BldA) [Mass fraction] 97 % Dr. Lisseth Peñaloza MD Work Phone: [facility] 02-03-2025 11:29-0400 Systolic blood pressure 118 mm[Hg] Dr. Lisseth Peñaloza MD Work Phone: [facility] 01-19-2025 14:39-0400 Body temperature 96.9 [degF] Dr. Lisseth Peñaloza MD Work Phone: [facility] 01-19-2025 14:39-0400 Diastolic blood pressure 46 mm[Hg] Dr. Lisseth Peñaloza MD Work Phone: [facility] 01-19-2025 14:39-0400 Heart rate 65 /min Dr. Lisseth Peñaloza MD Work Phone: [facility] 01-19-2025 14:39-0400 Respiratory rate 16 /min Dr. Lisseth Peñaloza MD Work Phone: [facility] 01-19-2025 14:39-0400 SaO2% (BldA) [Mass fraction] 99 % Dr. Lisseth Peñaloza MD Work Phone: [facility] 01-19-2025 14:39-0400 Systolic blood pressure 135 mm[Hg] Dr. Lisseth Peñaloza MD Work Phone: [facility] 01-19-2025 12:54-0400 Body height 175.[address] Lisseth Peñaloza MD Work Phone: [facility] 01-19-2025 12:54-0400 Body mass index (BMI) [Ratio] 36.6 kg/m2 Dr. Lisseth Peñaloza MD Work Phone: [facility] 01-19-2025 12:54-0400 Body weight 112.[address] Lisseth Peñaloza MD Work Phone: [facility] 01-12-2025 14:45-0400 Diastolic blood pressure 56 mm[Hg] Dr. Lisseth Peñaloza MD Work Phone: [facility] 01-12-2025 14:45-0400 Heart rate 58 /min Dr. Lisseth Peñaloza MD Work Phone: [facility] 01-12-2025 14:45-0400 Systolic blood pressure 114 mm[Hg] Dr. Lisseth Peñaloza MD Work Phone: [facility] 01-12-2025 13:33-0400 Body height 175.[address] Lisseth Peñaloza MD Work Phone: [facility] 01-12-2025 13:33-0400 Body mass index (BMI) [Ratio] 36.6 kg/m2 Dr. Lisseth Peñaloza MD Work Phone: [facility] 01-12-2025 13:33-0400 Body temperature 96 [degF] Dr. Lisseth Peñaloza MD Work Phone: [facility] 01-12-2025 13:33-0400 Body weight 112.[address] Lisseth Peñaloza MD Work Phone: [facility] 01-12-2025 13:33-0400 Respiratory rate 16 /min Dr. Lisseth Peñaloza MD Work Phone: [facility] 01-12-2025 13:33-0400 SaO2% (BldA) [Mass fraction] 97 % Dr. Lisseth Peñaloza MD Work Phone: [facility] 01-11-2025 11:02-0400 Body temperature 97.9 [degF] Wallace Lugo MD Work Phone: 1(027)768-231114 [address] 01-11-2025 11:02-0400 Diastolic blood pressure 59 mm[Hg] Wallace Lugo MD Work Phone: 9(831)920-219614 [address] 01-11-2025 11:02-0400 Heart rate 68 /min Wallace Lugo MD Work Phone: 5(771)229-207214 [address] 01-11-2025 11:02-0400 Respiratory rate 18 /min Wallace Lugo MD Work Phone: 4(246)552-196214 [address] 01-11-2025 11:02-0400 SaO2% (BldA) [Mass fraction] 96 % Wallace Lugo MD Work Phone: [facility] 01-11-2025 11:02-0400 Systolic blood pressure 121 mm[Hg] Wallace Lugo MD Work Phone: 6(872)743-937114 [address] 01-11-2025 03:08-0400 Body mass index (BMI) [Ratio] 36.67 kg/m2 Wallace Lugo MD Work Phone: [facility] 01-11-2025 03:08-0400 Body weight 112.63 kg Wallace Lugo MD Work Phone: [facility] 12-24-2024 10:24-0400 Body height 175.3 cm Wallace Lugo MD Work Phone: [facility] 12-23-2024 19:49-0400 Body temperature 98.5 [degF] Dr. Lisseth Peñaloza MD Work Phone: [facility] 12-23-2024 19:49-0400 Diastolic blood pressure 70 mm[Hg] Dr. Lisseth Peñaloza MD Work Phone: [facility] 12-23-2024 19:49-0400 Heart rate 65 /min Dr. Lisseth Peñaloza MD Work Phone: [facility] 12-23-2024 19:49-0400 Respiratory rate 16 /min Dr. Lisseth Peñaloza MD Work Phone: [facility] 12-23-2024 19:49-0400 SaO2% (BldA) [Mass fraction] 98 % Dr. Lisseth Peñaloza MD Work Phone: [facility] 12-23-2024 19:49-0400 Systolic blood pressure 130 mm[Hg] Dr. Lisseth Peñaloza MD Work Phone: [facility] 12-23-2024 14:34-0400 Body height 175.[address] Lisseth Peñaloza MD Work Phone: [facility] 12-23-2024 14:34-0400 Body weight 120.[address] Lisseth Peñaloza MD Work Phone: [facility] 12-23-2024 03:40-0400 Body mass index (BMI) [Ratio] 39.2 kg/m2 Dr. Lisseth Peñaloza MD Work Phone: [facility] 12-22-2024 04:00-0400 Inhaled oxygen flow rate 2 L/min Dr. Lisseth Peñaloza MD Work Phone: [facility] 12-20-2024 21:30-0400 Body temperature 99.8 [degF] Dr. Lisseth Peñaloza MD Work Phone: [facility] 12-20-2024 21:30-0400 Diastolic blood pressure 59 mm[Hg] Dr. Lisseth Peñaloza MD Work Phone: [facility] 12-20-2024 21:30-0400 Heart rate 131 /min Dr. Lisseth Peñaloza MD Work Phone: [facility] 12-20-2024 21:30-0400 Respiratory rate 20 /min Dr. Lisseth Peñaloza MD Work Phone: [facility] 12-20-2024 21:30-0400 SaO2% (BldA) [Mass fraction] 99 % Dr. Lisseth Peñaloza MD Work Phone: [facility] 12-20-2024 21:30-0400 Systolic blood pressure 127 mm[Hg] Dr. Lisseth Peñaloza MD Work Phone: [facility] 12-20-2024 17:58-0400 Body mass index (BMI) [Ratio] 37.7 kg/m2 Dr. Lisseth Peñaloza MD Work Phone: [facility] 12-20-2024 17:58-0400 Body weight 115.[address] Lisseth Peñaloza MD Work Phone: [facility] 12-20-2024 17:42-0400 Body height 175.[address] Lisseth Peñaloza MD Work Phone: [facility] 12-10-2024 10:22-0400 Body height 175.[address] Lisseth Peñaloza MD Work Phone: [facility] 12-10-2024 10:22-0400 Body mass index (BMI) [Ratio] 38.4 kg/m2 Dr. Lisseth Peñaloza MD Work Phone: [facility] 12-10-2024 10:22-0400 Body weight 117.[address] Lisseth Peñaloza MD Work Phone: [facility] 12-10-2024 10:22-0400 Diastolic blood pressure 78 mm[Hg] Dr. Lisseth Peñaloza MD Work Phone: [facility] 12-10-2024 10:22-0400 Heart rate 83 /min Dr. Lisseth Peñaloza MD Work Phone: [facility] 12-10-2024 10:22-0400 SaO2% (BldA) [Mass fraction] 92 % Dr. Lisseth Peñaloza MD Work Phone: [facility] 12-10-2024 10:22-0400 Systolic blood pressure 128 mm[Hg] Dr. Lisseth Peñaloza MD Work Phone: [facility] 12-09-2024 11:12-0400 Body height 175.[address] Lisseth Peñaloza MD Work Phone: [facility] 12-09-2024 11:12-0400 Body mass index (BMI) [Ratio] 38 kg/m2 Dr. Lisseth Peñaloza MD Work Phone: [facility] 12-09-2024 11:12-0400 Body temperature 96.7 [degF] Dr. Lisseth Peñaloza MD Work Phone: [facility] 12-09-2024 11:12-0400 Body weight 116.[address] Lisseth Peñaloza MD Work Phone: [facility] 12-09-2024 11:12-0400 Diastolic blood pressure 64 mm[Hg] Dr. Lisseth Peñaloza MD Work Phone: [facility] 12-09-2024 11:12-0400 Heart rate 105 /min Dr. Lisseth Peñaloza MD Work Phone: [facility] 12-09-2024 11:12-0400 Respiratory rate 16 /min Dr. Lisseth Peñaloza MD Work Phone: [facility] 12-09-2024 11:12-0400 SaO2% (BldA) [Mass fraction] 93 % Dr. Lisseth Peñaloza MD Work Phone: [facility] 12-09-2024 11:12-0400 Systolic blood pressure 118 mm[Hg] Dr. Lisseth Peñaloza MD Work Phone: [facility] 11-28-2024 03:21-0400 Body temperature 98.1 [degF] No Primary Care Physician [facility] 11-28-2024 03:21-0400 Diastolic blood pressure 71 mm[Hg] No Primary Care Physician [facility] 11-28-2024 03:21-0400 Heart rate 81 /min No Primary Care Physician [facility] 11-28-2024 03:21-0400 Respiratory rate 16 /min No Primary Care Physician [facility] 11-28-2024 03:21-0400 SaO2% (BldA) [Mass fraction] 99 % No Primary Care Physician [facility] 11-28-2024 03:21-0400 Systolic blood pressure 148 mm[Hg] No Primary Care Physician [facility] 11-27-2024 21:28-0400 Body height 175.26 cm No Primary Care Physician [facility] 11-27-2024 21:28-0400 Body mass index (BMI) [Ratio] 39.7 kg/m2 No Primary Care Physician [facility] 11-27-2024 21:28-0400 Body weight 122.01 kg No Primary Care Physician [facility] 11-26-2024 14:47-0400 Body temperature 98 [degF] No Primary Care Physician [facility] 11-26-2024 14:47-0400 Diastolic blood pressure 65 mm[Hg] No Primary Care Physician [facility] 11-26-2024 14:47-0400 Heart rate 74 /min No Primary Care Physician [facility] 11-26-2024 14:47-0400 Respiratory rate 14 /min No Primary Care Physician [facility] 11-26-2024 14:47-0400 SaO2% (BldA) [Mass fraction] 95 % No Primary Care Physician [facility] 11-26-2024 14:47-0400 Systolic blood pressure 116 mm[Hg] No Primary Care Physician [facility] 11-26-2024 03:42-0400 Body mass index (BMI) [Ratio] 40.4 kg/m2 No Primary Care Physician [facility] 11-26-2024 03:42-0400 Body weight 124.3 kg No Primary Care Physician [facility] 11-25-2024 14:58-0400 Body height 175.26 cm No Primary Care Physician [facility] 11-23-2024 08:10-0400 Inhaled oxygen flow rate 2 L/min No Primary Care Physician [facility] 11-20-2024 18:00-0400 Body temperature 101.6 [degF] No Primary Care Physician [facility] 11-20-2024 18:00-0400 Diastolic blood pressure 75 mm[Hg] No Primary Care Physician [facility] 11-20-2024 18:00-0400 Heart rate 126 /min No Primary Care Physician [facility] 11-20-2024 18:00-0400 Inhaled oxygen flow rate 2 L/min No Primary Care Physician [facility] 11-20-2024 18:00-0400 Respiratory rate 28 /min No Primary Care Physician [facility] 11-20-2024 18:00-0400 SaO2% (BldA) [Mass fraction] 94 % No Primary Care Physician [facility] 11-20-2024 18:00-0400 Systolic blood pressure 120 mm[Hg] No Primary Care Physician [facility] 11-20-2024 14:13-0400 Body height 175.26 cm No Primary Care Physician [facility] 11-20-2024 14:13-0400 Body mass index (BMI) [Ratio] 40.6 kg/m2 No Primary Care Physician [facility] 11-20-2024 14:13-0400 Body weight 125 kg No Primary Care Physician [facility] 11-07-2024 19:47-0400 Body temperature 98.9 [degF] No Primary Care Physician [facility] 11-07-2024 19:47-0400 Diastolic blood pressure 69 mm[Hg] No Primary Care Physician [facility] 11-07-2024 19:47-0400 Heart rate 70 /min No Primary Care Physician [facility] 11-07-2024 19:47-0400 Respiratory rate 14 /min No Primary Care Physician [facility] 11-07-2024 19:47-0400 SaO2% (BldA) [Mass fraction] 95 % No Primary Care Physician [facility] 11-07-2024 19:47-0400 Systolic blood pressure 127 mm[Hg] No Primary Care Physician [facility] 11-07-2024 19:15-0400 Body mass index (BMI) [Ratio] 38.5 kg/m2 No Primary Care Physician [facility] 11-07-2024 19:15-0400 Body weight 118.16 kg No Primary Care Physician [facility] 11-04-2024 07:37-0400 Body mass index (BMI) [Ratio] 38.8 kg/m2 No Primary Care Physician [facility] 11-04-2024 07:37-0400 Body weight 119.29 kg No Primary Care Physician [facility] 11-04-2024 07:37-0400 Diastolic blood pressure 66 mm[Hg] No Primary Care Physician [facility] 11-04-2024 07:37-0400 Heart rate 75 /min No Primary Care Physician [facility] 11-04-2024 07:37-0400 Respiratory rate 18 /min No Primary Care Physician [facility] 11-04-2024 07:37-0400 SaO2% (BldA) [Mass fraction] 93 % No Primary Care Physician [facility] 11-04-2024 07:37-0400 Systolic blood pressure 126 mm[Hg] No Primary Care Physician [facility] 10-19-2024 10:26-0400 Body mass index (BMI) [Ratio] 39.1 kg/m2 No Primary Care Physician [facility] 10-19-2024 10:26-0400 Body temperature 97.6 [degF] No Primary Care Physician [facility] 10-19-2024 10:26-0400 Body weight 120.2 kg No Primary Care Physician [facility] 10-19-2024 10:26-0400 Diastolic blood pressure 80 mm[Hg] No Primary Care Physician [facility] 10-19-2024 10:26-0400 Heart rate 73 /min No Primary Care Physician [facility] 10-19-2024 10:26-0400 Respiratory rate 14 /min No Primary Care Physician [facility] 10-19-2024 10:26-0400 SaO2% (BldA) [Mass fraction] 98 % No Primary Care Physician [facility] 10-19-2024 10:26-0400 Systolic blood pressure 134 mm[Hg] No Primary Care Physician [facility] 10-15-2024 10:10-0400 Body mass index (BMI) [Ratio] 39 kg/m2 No Primary Care Physician [facility] 10-15-2024 10:10-0400 Body weight 119.91 kg No Primary Care Physician [facility] 10-15-2024 10:10-0400 Diastolic blood pressure 74 mm[Hg] No Primary Care Physician [facility] 10-15-2024 10:10-0400 Heart rate 77 /min No Primary Care Physician [facility] 10-15-2024 10:10-0400 SaO2% (BldA) [Mass fraction] 94 % No Primary Care Physician [facility] 10-15-2024 10:10-0400 Systolic blood pressure 130 mm[Hg] No Primary Care Physician [facility] 09-07-2024 11:22-0500 Body mass index (BMI) [Ratio] 40.3 kg/m2 No Primary Care Physician [facility] 09-07-2024 11:22-0500 Body temperature 97.8 [degF] No Primary Care Physician [facility] 09-07-2024 11:22-0500 Body weight 123.83 kg No Primary Care Physician [facility] 09-07-2024 11:22-0500 Diastolic blood pressure 74 mm[Hg] No Primary Care Physician [facility] 09-07-2024 11:22-0500 Heart rate 85 /min No Primary Care Physician [facility] 09-07-2024 11:22-0500 Respiratory rate 17 /min No Primary Care Physician [facility] 09-07-2024 11:22-0500 SaO2% (BldA) [Mass fraction] 97 % No Primary Care Physician [facility] 09-07-2024 11:22-0500 Systolic blood pressure 132 mm[Hg] No Primary Care Physician [facility] 08-05-2024 14:23-0500 Body mass index (BMI) [Ratio] 39.9 kg/m2 No Primary Care Physician [facility] 08-05-2024 14:23-0500 Body temperature 97.9 [degF] No Primary Care Physician [facility] 08-05-2024 14:23-0500 Body weight 122.46 kg No Primary Care Physician [facility] 08-05-2024 14:23-0500 Diastolic blood pressure 80 mm[Hg] No Primary Care Physician [facility] 08-05-2024 14:23-0500 Heart rate 103 /min No Primary Care Physician [facility] 08-05-2024 14:23-0500 Respiratory rate 16 /min No Primary Care Physician [facility] 08-05-2024 14:23-0500 SaO2% (BldA) [Mass fraction] 93 % No Primary Care Physician [facility] 08-05-2024 14:23-0500 Systolic blood pressure 138 mm[Hg] No Primary Care Physician [facility] 02-26-2024 14:00-0400 Body height 175.3 cm Pharm [facility] 02-26-2024 14:00-0400 Body mass index (BMI) [Ratio] 36.03 kg/m2 Pharm [facility] 02-26-2024 14:00-0400 Body temperature 97.59 [degF] Pharm [facility] 02-26-2024 14:00-0400 Body weight 110.68 kg Pharm [facility] 02-26-2024 14:00-0400 Diastolic blood pressure 78 mm[Hg] Pharm [facility] 02-26-2024 14:00-0400 Heart rate 72 /min Pharm [facility] 02-26-2024 14:00-0400 Respiratory rate 16 /min Pharm [facility] 02-26-2024 14:00-0400 SaO2% (BldA) [Mass fraction] 97 % Pharm [facility] 02-26-2024 14:00-0400 Systolic blood pressure 125 mm[Hg] Pharm [facility] 01-29-2024 11:21-0400 Body height 175.3 cm Pharm [facility] 01-29-2024 11:21-0400 Body mass index (BMI) [Ratio] 35.59 kg/m2 Pharm [facility] 01-29-2024 11:21-0400 Body temperature 96.6 [degF] Pharm [facility] 01-29-2024 11:21-0400 Body weight 109.32 kg Pharm [facility] 01-29-2024 11:21-0400 Diastolic blood pressure 69 mm[Hg] Pharm [facility] 01-29-2024 11:21-0400 Heart rate 90 /min Pharm [facility] 01-29-2024 11:21-0400 Systolic blood pressure 113 mm[Hg] Pharm [facility] 12-24-2023 13:18-0400 Body height 175.3 cm Manny Shields MD Work Phone: [facility] 12-24-2023 13:18-0400 Body mass index (BMI) [Ratio] 35.24 kg/m2 Manny Shields MD Work Phone: [facility] 12-24-2023 13:18-0400 Body temperature 97.59 [degF] Manny Shields MD Work Phone: [facility] 12-24-2023 13:18-0400 Body weight 108.23 kg Manny Shields MD Work Phone: [facility] 12-24-2023 13:18-0400 Diastolic blood pressure 63 mm[Hg] Manny Shields MD Work Phone: [facility] 12-24-2023 13:18-0400 Heart rate 77 /min Manny Shields MD Work Phone: [facility] 12-24-2023 13:18-0400 Respiratory rate 16 /min Manny Shields MD Work Phone: [facility] 12-24-2023 13:18-0400 SaO2% (BldA) [Mass fraction] 97 % Manny Shields MD Work Phone: [facility] Comment on above: RA 12-24-2023 13:18-0400 Systolic blood pressure 119 mm[Hg] Manny Shields MD Work Phone: [facility] 11-14-2023 13:20-0400 Body height 175.3 cm Pharm [facility] 11-14-2023 13:20-0400 Body mass index (BMI) [Ratio] 35.29 kg/m2 Pharm [facility] 11-14-2023 13:20-0400 Body temperature 97.3 [degF] Pharm [facility] 11-14-2023 13:20-0400 Body weight 108.41 kg Pharm [facility] 11-14-2023 13:20-0400 Diastolic blood pressure 71 mm[Hg] Pharm [facility] 11-14-2023 13:20-0400 Heart rate 84 /min Pharm [facility] 11-14-2023 13:20-0400 Systolic blood pressure 119 mm[Hg] Pharm [facility] 10-30-2023 13:51-0400 Body height 175.3 cm Pharm [facility] 10-30-2023 13:51-0400 Body temperature 97.39 [degF] Pharm [facility] 10-30-2023 13:51-0400 Body weight 107.5 kg Pharm [facility] 10-30-2023 13:51-0400 Diastolic blood pressure 83 mm[Hg] Pharm [facility] 10-30-2023 13:51-0400 Systolic blood pressure 130 mm[Hg] Pharm [facility] 10-06-2023 13:22-0400 Body height 175.26 cm [facility] 10-06-2023 13:22-0400 Body temperature 98.5 [degF] [facility] 10-06-2023 13:22-0400 Diastolic blood pressure 100 mm[Hg] [facility] 10-06-2023 13:22-0400 Heart rate 75 /min [facility] 10-06-2023 13:22-0400 Respiratory rate 18 /min [facility] 10-06-2023 13:22-0400 SaO2% (BldA) [Mass fraction] 95 % [facility] 10-06-2023 13:22-0400 Systolic blood pressure 145 mm[Hg] [facility] 09-12-2023 15:40-0500 Body height 175.3 cm Pharm [facility] 09-12-2023 15:40-0500 Body temperature 96.8 [degF] Pharm [facility] 09-12-2023 15:40-0500 Body weight 109.32 kg Pharm [facility] 09-12-2023 15:40-0500 Diastolic blood pressure 70 mm[Hg] Pharm [facility] 09-12-2023 15:40-0500 Systolic blood pressure 115 mm[Hg] Pharm [facility] 08-30-2023 14:37-0500 Body height 175.3 cm Williams Rubin MD Work Phone: [facility] 08-30-2023 14:37-0500 Body temperature 97 [degF] Williams Rubin MD Work Phone: [facility] 08-30-2023 14:37-0500 Body weight 106.96 kg Williams Rubin MD Work Phone: [facility] 08-30-2023 14:37-0500 Diastolic blood pressure 77 mm[Hg] Williams Rubin MD Work Phone: [facility] 08-30-2023 14:37-0500 Heart rate 81 /min Williams Rubin MD Work Phone: [facility] 08-30-2023 14:37-0500 SaO2% (BldA) [Mass fraction] 95 % Williams Rubin MD Work Phone: [facility] 08-30-2023 14:37-0500 Systolic blood pressure 118 mm[Hg] Williams Rubin MD Work Phone: [facility] 03-29-2023 14:43-0400 Body height 175.3 cm Jay Her DO Work Phone: [facility] 03-29-2023 14:43-0400 Body weight 109.77 kg Jay Her DO Work Phone: [facility] 03-29-2023 14:43-0400 Diastolic blood pressure 77 mm[Hg] Jay Her DO Work Phone: [facility] 03-29-2023 14:43-0400 Systolic blood pressure 134 mm[Hg] Jay Her DO Work Phone: [facility] 03-15-2023 15:43-0400 Diastolic blood pressure 75 mm[Hg] Manny Shields MD Work Phone: [facility] 03-15-2023 15:43-0400 Heart rate 65 /min Manny Shields MD Work Phone: [facility] 03-15-2023 15:43-0400 Systolic blood pressure 130 mm[Hg] Manny Shields MD Work Phone: [facility] 03-15-2023 14:09-0400 Body height 175.3 cm Manny Shields MD Work Phone: [facility] 03-15-2023 14:09-0400 Body temperature 97.59 [degF] Manny Shields MD Work Phone: [facility] 03-15-2023 14:09-0400 Body weight 109.77 kg Manny Shields MD Work Phone: [facility] 03-15-2023 14:09-0400 Respiratory rate 18 /min Manny Shields MD Work Phone: [facility] 03-15-2023 14:09-0400 SaO2% (BldA) [Mass fraction] 97 % Manny Shields MD Work Phone: [facility] 03-01-2023 14:07-0400 Body height 175.3 cm Williams Rubin MD Work Phone: [facility] 03-01-2023 14:07-0400 Body temperature 97 [degF] Williams Rubin MD Work Phone: [facility] 03-01-2023 14:07-0400 Body weight 111.22 kg Williams Rubin MD Work Phone: [facility] 03-01-2023 14:07-0400 Diastolic blood pressure 72 mm[Hg] Williams Rubin MD Work Phone: [facility] 03-01-2023 14:07-0400 Heart rate 56 /min Williams Rubin MD Work Phone: [facility] 03-01-2023 14:07-0400 Respiratory rate 18 /min Williams Rubin MD Work Phone: [facility] 03-01-2023 14:07-0400 SaO2% (BldA) [Mass fraction] 97 % Williams Rubin MD Work Phone: [facility] 03-01-2023 14:07-0400 Systolic blood pressure 132 mm[Hg] Williams Rubin MD Work Phone: [facility] 01-29-2023 14:25-0400 Body height 175.3 cm Ronny Wheeler MD Work Phone: [facility] 01-29-2023 14:25-0400 Body weight 110.22 kg Ronny Wheeler MD Work Phone: [facility] 01-29-2023 14:25-0400 Diastolic blood pressure 77 mm[Hg] Ronny Wheeler MD Work Phone: [facility] 01-29-2023 14:25-0400 Heart rate 59 /min Ronny Wheeler MD Work Phone: [facility] 01-29-2023 14:25-0400 Respiratory rate 18 /min Ronny Wheeler MD Work Phone: [facility] 01-29-2023 14:25-0400 SaO2% (BldA) [Mass fraction] 95 % Ronny Wheeler MD Work Phone: [facility] 01-29-2023 14:25-0400 Systolic blood pressure 132 mm[Hg] Ronny Wheeler MD Work Phone: [facility] 01-22-2023 13:58-0400 Body temperature 98.01 [degF] Jay Her DO Work Phone: [facility] 01-22-2023 13:58-0400 Body weight 111.13 kg Jay Her DO Work Phone: [facility] 01-22-2023 13:58-0400 Diastolic blood pressure 70 mm[Hg] Jay Her DO Work Phone: [facility] 01-22-2023 13:58-0400 Systolic blood pressure 121 mm[Hg] Jay Her DO Work Phone: [facility] 05-02-2022 10:41-0400 Body temperature 97.4 [degF] SAND BUFFER Ha Rivas Work Phone: [facility] Work Phone: 05-02-2022 10:41-0400 Diastolic blood pressure 68 mm[Hg] SAND BUFFER Ha Rivas Work Phone: [facility] Work Phone: 05-02-2022 10:41-0400 Heart rate 82 /min SAND BUFFER Ha Rivas Work Phone: [facility] Work Phone: 05-02-2022 10:41-0400 Respiratory rate 18 /min SAND BUFFER Ha Rivas Work Phone: [facility] Work Phone: 05-02-2022 10:41-0400 Systolic blood pressure 97 mm[Hg] SAND BUFFER Ha Rivas Work Phone: [facility] Work Phone: 04-30-2022 13:25-0400 Body height 175.26 cm SAND BUFFER Ha Rivas Work Phone: [facility] Work Phone: 04-30-2022 13:25-0400 Body mass index (BMI) [Ratio] 38.3 kg/m2 SAND BUFFER Ha Rivas Work Phone: [facility] Work Phone: 04-30-2022 13:25-0400 Body temperature 97.5 [degF] SAND BUFFER Ha Rivas Work Phone: [facility] Work Phone: 04-30-2022 13:25-0400 Body weight 117.9 kg SAND BUFFER Ha Rivas Work Phone: [facility] Work Phone: 04-30-2022 13:25-0400 Diastolic blood pressure 65 mm[Hg] SAND BUFFER Ha Rivas Work Phone: [facility] Work Phone: 04-30-2022 13:25-0400 Heart rate 60 /min SAND BUFFER Ha Rivas Work Phone: [facility] Work Phone: 04-30-2022 13:25-0400 Respiratory rate 18 /min SAND BUFFER Ha Rivas Work Phone: [facility] Work Phone: 04-30-2022 13:25-0400 SaO2% (BldA) [Mass fraction] 98 % SAND BUFFER Ha Rivas Work Phone: [facility] Work Phone: 04-30-2022 13:25-0400 Systolic blood pressure 123 mm[Hg] SAND BUFFER Ha Rivas Work Phone: [facility] Work Phone: 04-25-2022 10:27-0400 Body temperature 97.2 [degF] SAND BUFFER Ha Rivas Work Phone: [facility] Work Phone: 04-25-2022 10:27-0400 Diastolic blood pressure 57 mm[Hg] SAND BUFFER Ha Rivas Work Phone: [facility] Work Phone: 04-25-2022 10:27-0400 Heart rate 78 /min SAND BUFFER Ha Rivas Work Phone: [facility] Work Phone: 04-25-2022 10:27-0400 Respiratory rate 12 /min SAND BUFFER Ha Rivas Work Phone: [facility] Work Phone: 04-25-2022 10:27-0400 Systolic blood pressure 153 mm[Hg] SAND BUFFER Ha Rivas Work Phone: [facility] Work Phone: 04-25-2022 10:17-0400 Body height 175.26 cm SAND BUFFER Ha Rivas Work Phone: [facility] Work Phone: 04-25-2022 10:17-0400 Body mass index (BMI) [Ratio] 36.9 kg/m2 SAND BUFFER Ha Rivas Work Phone: [facility] Work Phone: 04-25-2022 10:17-0400 Body weight 113.39 kg SAND BUFFER Ha Rivas Work Phone: [facility] Work Phone: 04-09-2022 10:40-0400 Diastolic blood pressure 82 mm[Hg] Milka Rodriguez MD Work Phone: [facility] 04-09-2022 10:40-0400 Systolic blood pressure 140 mm[Hg] Milka Rodriguez MD Work Phone: [facility] 04-09-2022 10:29-0400 Body height 175.3 cm Milka Rodriguez MD Work Phone: [facility] 04-09-2022 10:29-0400 Body mass index (BMI) [Ratio] 37.1 kg/m2 Milka Rodriguez MD Work Phone: [facility] 04-09-2022 10:29-0400 Body weight 113.94 kg Milka Rodriguez MD Work Phone: [facility] 04-09-2022 10:29-0400 Heart rate 59 /min Milka Rodriguez MD Work Phone: [facility] 04-09-2022 10:29-0400 SaO2% (BldA) [Mass fraction] 95 % Milka Rodriguez MD Work Phone: [facility] 04-03-2022 12:02-0400 Body height 175.26 cm Ha DURNA Work Phone: [facility] Work Phone: Comment [...] Phone: [facility] Work Phone: 04-03-2022 12:02-0400 [place] Body Weight 145 [lb_av] Ha DURAN Work Phone: [facility] Work Phone: 02-15-2022 11:46-0400 Body height 175.26 cm Janice Zuniga [facility] 02-15-2022 11:46-0400 Body mass index (BMI) [Ratio] 36.62 kg/m2 Janice [facility]uniga [facility] 02-15-2022 11:46-0400 Body weight 112.49 kg Janiceras Zuniag [facility] 02-15-2022 11:46-0400 Diastolic blood pressure 56 mm[Hg] Janiceras Zuniga [facility] 02-15-2022 11:46-0400 Heart rate 58 /min Janice Zun[facility] 02-15-2022 11:46-0400 Systolic blood pressure 140 mm[Hg] Janice [facility] 01-25-2022 10:59-0400 Body height 175.26 cm Ha DURAN Work Phone: [facility] D[facility] Work Phone: Comment on above: 5'9 01-25-2022 10:59-0400 Body height 175.3 cm Ha DURAN Work Phone: [facility] Work Phone: 01-25-2022 10:59-0400 Body mass index (BMI) [Ratio] 36.2 kg/m2 Ha DURAN Work Phone: [facility] Work Phone: 01-25-2022 10:59-0400 Body temperature 96.8 [degF] Ha DURAN Work Phone: [facility] Work Phone: 01-25-2022 10:59-0400 Body weight 111.13 kg Ha DURAN Work Phone: [facility] Work Phone: 01-25-2022 10:59-0400 Diastolic blood pressure 70 mm[Hg] Ha DURAN Work Phone: [facility] Work Phone: 01-25-2022 10:59-0400 Heart rate 55 /min Ha DURAN Work Phone: [facility] Work Phone: 01-25-2022 10:59-0400 [place] Body Weight 145 [lb_av] Ha DURAN Work Phone: [facility] Work Phone: 01-25-2022 10:59-0400 SaO2% (BldA) [Mass fraction] 97 % Ha DURAN Work Phone: [facility] Work Phone: 01-25-2022 10:59-0400 Systolic blood pressure 140 mm[Hg] Ha DURAN Work Phone: [facility] Work Phone: 01-11-2022 13:19-0400 Body height 175.26 cm Ha DURAN Work Phone: [facility] Work Phone: Comment on above: 5'9 01-11-2022 13:19-0400 Body height 175.3 cm Ha DURAN Work Phone: [facility] Work Phone: 01-11-2022 13:19-0400 Body temperature 96.8 [degF] Ha DURAN Work Phone: [facility] Work Phone: 01-11-2022 13:19-0400 [place] Body Weight 145 [lb_av] Ha DURAN Work Phone: [facility] Work Phone: 12-12-2021 11:47-0400 Body height 175.26 cm Ha DURAN Work Phone: [facility] Work Phone: Comment on above: 5'9 12-12-2021 11:47-0400 Body height 175.3 cm Ha DURAN Work Phone: Shirley [facility] Work Phone: 12-12-2021 11:47-0400 Body temperature 97.5 [degF] Ha DURAN Work Phone: [facility] Work Phone: 12-12-2021 11:47-0400 [place] Body Weight 145 [lb_av] Ha DURAN Work Phone: [facility] Work Phone: 12-06-2021 11:50-0400 Body height 175.26 cm [facility] 12-06-2021 11:50-0400 Body mass index (BMI) [Ratio] 34.85 kg/m2 Janice Efrain [facility] 12-06-2021 11:50-0400 Body weight 107.05 kg [facility] 12-06-2021 11:19-0400 Body height 175.26 cm [facility] 12-06-2021 11:19-0400 Body mass index (BMI) [Ratio] 34.85 kg/m2 Janice Efrain [facility] 12-06-2021 11:19-0400 Body weight 107.05 kg Janice Zuniga [facility] [employer] [facility] 12-06-2021 11:19-0400 Diastolic blood pressure 62 mm[Hg] Janice Zuniga [facility] [employer] [facility] 12-06-2021 11:19-0400 Heart rate 65 /min Janice Zuniga [facility] [employer] [facility] 12-06-2021 11:19-0400 Systolic blood pressure 104 mm[Hg] Janice Zuniga [facility] [employer] [facility] 11-13-2021 15:28-0400 Body height 175.26 cm Ha DURAN Work Phone: Gisselle LemosP.M. Work Phone: Comment on above: 5'9 11-13-2021 15:28-0400 Body height 175.3 cm Ha DURAN Work Phone: Gisselle LemosP.M. Work Phone: 11-13-2021 15:28-0400 Body mass index (BMI) [Ratio] 34 kg/m2 Ha DURAN Work Phone: Naomi Lemos.P.M. Work Phone: 11-13-2021 15:28-0400 Body temperature 97.1 [degF] Ha DURAN Work Phone: Naomi Lemos.P.M. Work Phone: 11-13-2021 15:28-0400 Body weight 104.33 kg Ha DURAN Work Phone: Naomi Lemos.P.M. Work Phone: 11-13-2021 15:28-0400 [place] Body Weight 145 [lb_av] Ha DURAN Work Phone: Gisselle LemosP.M. Work Phone: 10-13-2021 11:12-0400 Body height 175.3 cm Abbey Oliveira CNP Work Phone: [facility] 10-13-2021 11:12-0400 Body mass index (BMI) [Ratio] 33.68 kg/m2 Abbey Oliveira CNP Work Phone: [facility] 10-13-2021 11:12-0400 Body weight 103.47 kg Abbey Oliveira CNP Work Phone: [facility] 10-13-2021 11:12-0400 Diastolic blood pressure 55 mm[Hg] Abbey Oliveira CNP Work Phone: [facility] 10-13-2021 11:12-0400 Heart rate 62 /min Abbey Oliveira CNP Work Phone: [facility] 10-13-2021 11:12-0400 SaO2% (BldA) [Mass fraction] 96 % Abbey Oliveira CNP Work Phone: [facility] 10-13-2021 11:12-0400 Systolic blood pressure 114 mm[Hg] Abbey Oliveira CNP Work Phone: [facility] 10-09-2021 17:03-0400 Body height 175.26 cm Ha [...] Phone: Gisselle LemosP.M. Work Phone: 10-09-2021 17:03-0400 [place] Body Weight 145 [lb_av] Ha DURAN Work [...] Phone: Gisselle LemosP.M. Work Phone: 10-03-2021 15:02-0400 [place] Body Weight 145 [lb_av] Ha DURAN Work Phone: Gisselle LemosP.M. Work Phone: 10-03-2021 15:02-0400 SaO2% (BldA) [Mass fraction] 92 % Ha DURAN Work Phone: Naomi Lemos.P.M. Work Phone: 10-03-2021 15:02-0400 Systolic blood pressure 120 mm[Hg] Ha DURAN Work Phone: Gisselle LemosP.M. Work Phone: 08-25-2021 10:37-0500 Body height 177.8 cm SAND BUFFER Ha Rivas Work Phone: [facility] Work Phone: 08-03-2021 13:25-0500 Body height 175.26 cm Janice Zuniga [facility] 08-03-2021 13:25-0500 Body mass index (BMI) [Ratio] 35.73 kg/m2 Janiceras Gutierrezant [facility] 08-03-2021 13:25-0500 Body weight 109.77 kg Janiceras Gutierrezant [facility] 08-03-2021 12:58-0500 Body height 175.26 cm Janice Zuniga [facility] 08-03-2021 12:58-0500 Body mass index (BMI) [Ratio] 35.73 kg/m2 Janiceras Zuniga [facility] 08-03-2021 12:58-0500 Body weight 109.77 kg Janice Efrain [facility] 08-03-2021 12:58-0500 Diastolic blood pressure 81 mm[Hg] Janice Efrain [facility] 08-03-2021 12:58-0500 Heart rate 57 /min Janiceras Zuniga [facility] 08-03-2021 12:58-0500 Systolic blood pressure 126 mm[Hg] Janice Efrain [facility] 06-13-2021 11:49-0500 Body height 175.26 cm Ha DURAN Work Phone: Sly Nix DMiguelinaP.M. Work Phone: Comment on above: 5'9 06-13-2021 11:49-0500 Body height 175.3 cm Ha DURAN Work Phone: Sly Nix D.P.M. Work Phone: 06-13-2021 11:49-0500 Body mass index (BMI) [Ratio] 35.9 kg/m2 Ha DURAN Work Phone: Gisselle LemosP.M. Work Phone: 06-13-2021 11:49-0500 Body temperature 98.1 [degF] Ha DURAN Work Phone: Gisselle LemosP.M. Work Phone: 06-13-2021 11:49-0500 Body weight 110.22 kg Ha DURAN Work Phone: Gisselle LemosP.M. Work Phone: 06-13-2021 11:49-0500 [place] Body Weight 145 [lb_av] Ha DURAN Work Phone: Gisselle LemosP.M. Work Phone: 05-11-2021 12:40-0400 Body height 175.26 cm [facility] 05-11-2021 12:40-0400 Body mass index (BMI) [Ratio] 36.03 kg/m2 [facility]ice [facility] 05-11-2021 12:40-0400 Body weight 110.68 kg [facility]ice [facility] 05-11-2021 12:04-0400 Body height 175.26 cm Janice Efrain [facility] 05-11-2021 12:04-0400 Body mass index (BMI) [Ratio] 36.03 kg/m2 Janice Efrain [facility] 05-11-2021 12:04-0400 Body weight 110.68 kg Janice Efrain [facility] 05-11-2021 12:04-0400 Diastolic blood pressure 68 mm[Hg] Janice Efrain [employer] [facility] 05-11-2021 12:04-0400 Heart rate 63 /min Janice Efrain [facility] 05-11-2021 12:04-0400 Systolic blood pressure 139 mm[Hg] Janice Efrain [facility] 05-04-2021 16:37-0400 Body height 175.26 cm Ha DURAN Work Phone: Fina LemosM. Work Phone: Comment on above: 5'9 05-04-2021 [...] Phone: Gisselle LemosP.M. Work Phone: 05-04-2021 16:37-0400 [place] Body Weight 145 [lb_av] Ha DURAN Work [...] 03-30-2021 12:19-0400 Body weight 109.89 kg Ha Evelyn DURAN Work Phone: Gisselle LemosP.M. Work Phone: 03-30-2021 12:19-0400 [place] Body Weight 145 [lb_av] Ha DURAN Work Phone: Gisselle LemosP.M. Work Phone: 02-16-2021 23:20-0400 Body height 175.26 cm Janice Zuniga [employer] 02-16-2021 23:20-0400 Body mass index (BMI) [Ratio] 36.32 kg/m2 Janice Efrain [facility] 02-16-2021 23:20-0400 Body weight 111.59 kg Janice Efrain [facility] 02-15-2021 13:09-0400 Body height 175.26 cm Janice Efrain [employer] 02-15-2021 13:09-0400 Body mass index (BMI) [Ratio] 36.32 kg/m2 Janice Efrain [facility] 02-15-2021 13:09-0400 Body temperature 96.8 [degF] [facility] 02-15-2021 13:09-0400 Body weight 111.59 kg Janice Zuniga [facility] [employer] [facility] 02-15-2021 13:09-0400 Diastolic blood pressure 70 mm[Hg] Janice Zuniga [facility] [employer] [facility] 02-15-2021 13:09-0400 Heart rate 72 /min Janice Zuniga [facility] [employer] [facility] 02-15-2021 13:09-0400 Systolic blood pressure 107 mm[Hg] Janice Zuniga [facility] [employer] [facility] 01-25-2021 11:17-0400 Body height 175.26 cm Ha [...] pressure 76 mm[Hg] Ha DURAN Work Phone: Shirley Lemos.M. Work Phone: 01-25-2021 11:17-0400 Heart rate 77 /min Ha DURAN Work Phone: Gisselle LemosPMiguelinaM. Work Phone: 01-25-2021 11:17-0400 [place] Body Weight 145 [lb_av] Ha DURAN Work Phone: Fina LemosM. Work Phone: 01-25-2021 11:17-0400 SaO2% (BldA) [Mass fraction] 96 % Ha DURAN Work Phone: Gisselle LemosP.M. Work Phone: 01-25-2021 11:17-0400 Systolic blood pressure 138 mm[Hg] Ha DURAN Work Phone: Gisselle LemosP.M. Work Phone: 11-18-2020 11:20-0400 Body height 175.26 cm [facility] 11-18-2020 11:20-0400 Body mass index (BMI) [Ratio] 36.18 kg/m2 [facility] 11-18-2020 11:20-0400 Body temperature 97.6 [degF] [facility] 11-18-2020 11:20-0400 Body weight 111.13 kg [facility]ice [facility] 11-18-2020 11:20-0400 Diastolic blood pressure 72 mm[Hg] [facility] 11-18-2020 11:20-0400 Heart rate 74 /min Janice Efrain [facility] 11-18-2020 11:20-0400 Respiratory rate 20 /min Janice Zuniga [facility] 11-18-2020 11:20-0400 Systolic blood pressure 124 mm[Hg] Janice Zuniga [facility] 10-07-2020 14:29-0400 BMI (Body Mass Index) 37.29 kg/m2 Milka [facility] 10-07-2020 14:29-0400 Body weight 114.53 kg Milka [facility] 10-07-2020 14:29-0400 BP Diastolic 73 mm[Hg] [facility] 10-07-2020 14:29-0400 BP Systolic 126 mm[Hg] Milka [facility] 10-07-2020 14:29-0400 Height 175.3 cm [facility] 10-07-2020 14:29-0400 Pulse (Heart Rate) 71 /min [facility] 10-07-2020 14:29-0400 Pulse [facility] 97 % [facility] 04-05-2020 14:29-0400 BMI (Body Mass Index) 35.29 kg/m2 [facility] 04-05-2020 14:29-0400 Body weight 108.[address] [facility] 04-05-2020 14:29-0400 BP Diastolic 63 mm[Hg] [facility] 04-05-2020 14:29-0400 BP Systolic 110 mm[Hg] [facility] 04-05-2020 14:29-[address] [facility] 04-05-2020 14:29-0400 Pulse (Heart Rate) 60 /min [facility] 04-05-2020 14:29-0400 Pulse Oximetry 97 % [facility] 12-29-2019 10:51-0400 BMI (Body Mass Index) 34.7 kg/m2 [facility] 12-29-2019 10:51-0400 Body weight 106.[address] [facility] 12-29-2019 10:51-0400 BP Diastolic 72 mm[Hg] [facility] 12-29-2019 10:51-0400 BP Systolic 121 mm[Hg] [facility] 12-29-2019 10:51-[address] [facility] 12-29-2019 10:51-0400 Pulse (Heart Rate) 60 /min [facility] 12-29-2019 10:51-0400 Pulse Oximetry 96 % [facility] 12-15-2019 11:32-0400 BMI (Body Mass Index) 34.7 kg/m2 [facility] 12-15-2019 11:32-0400 Body weight 106.[address] [facility] 12-15-2019 11:32-0400 BP Diastolic 56 mm[Hg] [facility] 12-15-2019 11:32-0400 BP Systolic 101 mm[Hg] [facility] 12-15-2019 11:32-[address] [facility] 12-15-2019 11:32-0400 Pulse (Heart Rate) 74 /min [facility] 12-15-2019 11:32-0400 Pulse Oximetry 98 % [facility] 08-21-2019 10:31-0500 BMI (Body Mass Index) 33.52 kg/m2 Milka [facility] 08-21-2019 10:31-0500 Body weight 102.97 kg Milka [facility] 08-21-2019 10:31-0500 BP Diastolic 74 mm[Hg] Milka [facility] 08-21-2019 10:31-0500 BP Systolic 110 mm[Hg] Milka [facility] 08-21-2019 10:31-0500 Height 175.3 cm Milka [facility] 08-21-2019 10:31-0500 Pulse (Heart Rate) 67 /min Milka [facility] 08-21-2019 10:31-0500 Pulse Oximetry 95 % Milka [facility] 08-18-2019 08:27-0500 BMI (Body Mass Index) 33.79 kg/m2 [facility] 08-18-2019 08:27-0500 Body [facility] 08-18-2019 08:27-0500 BP Diastolic 71 mm[Hg] [facility] 08-18-2019 08:27-0500 BP Systolic 128 mm[Hg] [facility] 08-18-2019 08:27-0500 Height 175.3 cm [facility] 08-18-2019 08:27-0500 Pulse (Heart Rate) 69 /min Ha H[facility] 08-18-2019 08:27-0500 Pulse Oximetry 97 % Ha Rivas Andre[facility] 07-28-2019 13:41-0500 BMI (Body Mass Index) 33.43 kg/m2 [facility] 07-28-2019 13:41-0500 Body weight 102.69 kg [facility] 07-28-2019 13:41-0500 BP Diastolic 60 mm[Hg] [facility] 07-28-2019 13:41-0500 BP Systolic 120 mm[Hg] [facility] 07-28-2019 13:41-0500 Height 175.3 [facility] 06-11-2017 11:05-0500 BMI (Body Mass Index) 29.35 kg/m2 [facility] Work Phone: 06-11-2017 11:05-0500 Body Temperature 97.5 [degF] [facility] Work Phone: 06-11-2017 11:05-0500 BP Diastolic 81 mm[Hg] [facility] Work Phone: 06-11-2017 11:05-0500 BP Systolic 122 mm[Hg] [facility] Work Phone: 06-11-2017 11:05-0500 Height 175.26 cm [facility] Work Phone: 06-11-2017 11:05-0500 Pulse (Heart Rate) 78 /min [facility] Work Phone: 06-11-2017 11:05-0500 Respiratory Rate 20 /min [facility] Work Phone: 06-11-2017 11:05-0500 Weight 90.18 kg [facility] Work Phone: 11-27-2016 09:43-0400 Body Temperature 97.5 [degF] Carmelita Fernandes LPN [facility] Work Phone: 11-27-2016 09:43-0400 Height 175.26 cm Carmelita Fernandes LPN [facility] Work Phone: 11-27-2016 09:43-0400 Weight 91.17 kg [facility] Work Phone: Encounters Encounter Date Encounter Type Care Provider Facility Start: 02-27-2025 ambulatory Lisseth Peñaloza Facility :[facility] Start: 02-04-2025 End: 02-04-2025 Shawanda Keane [place] -[facility] Work Phone: Start: 02-04-2025 End: 02-04-[address] Lisseth Peñaloza MD Work Phone: [facility] Start: 02-03-2025 End: 02-03-2025 Jay KUMAR -[facility] Work Phone: Start: 02-03-2025 End: 02-03-[address] Lisseth Peñaloza MD Work Phone: -[facility] Start: 01-19-2025 End: 01-19-2025 Dr. Lisseth Peñaloza MD Work Phone: -[facility] Work Phone: Start: 01-19-2025 End: 01-19-[address] Lisseth Peñaloza MD Work Phone: -[facility] Start: 01-12-2025 End: 01-12-2025 Dr. Lisseth Peñaloza MD Work Phone: -[facility] Work Phone: Start: 01-12-2025 End: 01-12-[address] Lisseth Peñaloza MD Work Phone: -[facility] Start: 12-28-2024 Dr. Josie Rivera DO [facility] Work Phone: Start: 12-23-2024 End: 01-11-2025 Evaluation and management of inpatient Wallace Lugo MD Work Phone: Start: 12-22-2024 Dr. Josie Rivera DO [facility] Work Phone: Start: 12-22-2024 End: 12-22-2024 ambulatory Lisseth Peñaloza Facility:[facility] Start: 12-22-2024 End: 12-22-2024 Dr. Kasandra Hinkle MD [facility] Work Phone: Start: 12-21-2024 Dr. Josie Rivera DO [facility] Work Phone: Start: 12-20-2024 End: 12-23-2024 Evaluation and management of inpatient Dr. Lisseth Peñaloza MD Work Phone: [facility] Work Phone: Start: 12-20-2024 ambulatory Josie Rosas y:[facility] Start: 12-20-2024 End: 12-23-2024 Dr. Nicole Dobson MD -Progressive Care Unit Work Phone: Start: 12-15-2024 End: 12-15-[address] Lisseth Peñaloza MD Work Phone: [facility] Work Phone: Start: 12-15-2024 End: 12-15-2024 Dr. Michel Haq MD -Laboratory Specimen Work Phone: Start: 12-15-2024 End: 12-15-2024 ambulatory Lisseth Peñaloza Facility:[facility] Start: 12-10-2024 End: 12-10-2024 Sonia AHUJAC -[facility] Work Phone: Start: 12-10-2024 End: 12-10-[address] Lisseth Peñaloza MD Work Phone: [facility] Work Phone: Start: 12-09-2024 End: 12-09-2024 Jay KUMAR -[facility] Work Phone: Start: 12-09-2024 End: 12-09-[address] Lisseth Peñaloza MD Work Phone: [facility] Work Phone: Start: 12-08-2024 End: 12-08-[address] Lisseth Peñaloza MD Work Phone: [facility] Work Phone: Start: 12-08-2024 End: 12-08-2024 Dr. Michel Haq MD -Laboratory Specimen Work Phone: Start: 12-08-2024 End: 12-08-2024 ambulatory Redford Eun Facility:[facility] Start: 12-01-2024 End: 12-01-2024 Dr. Michel Haq MD -Medical Out Work Phone: Start: 12-01-2024 End: 12-01-2024 ambulatory No Primary Care Physician [facility] Work Phone: Start: 12-01-2024 End: 12-01-[address] Lisseth Peñaloza MD Work Phone: [facility] Work Phone: Start: 12-01-2024 End: 12-01-2024 Dr. Michel Haq MD -Laboratory Specimen Work Phone: Start: 12-01-2024 End: 12-01-2024 ambulatory Redford Eun Facility:[facility] Start: 11-27-2024 End: 11-28-2024 No Primary Care Physician -Emergency Department Work Phone: Start: 11-27-2024 End: 11-28-2024 Emergency department patient visit No Primary Care Physician [facility] Work Phone: Start: 11-27-2024 End: 11-27-[address] Lisseth Peñaloza MD Work Phone: [facility] Work Phone: Start: 11-27-2024 End: 11-27-2024 Dr. Jean Trujillo MD -[facility] Work Phone: Start: 11-26-2024 Dr. Denisse Guan MD - [facility] Work Phone: Start: 11-25-2024 ambulatory [facility] :[facility] Start: 11-25-2024 Dr. Haider ROMAN [facility] Work Phone: Start: 11-24-2024 Dr. Haider ROMAN [facility] Work Phone: Start: 11-23-2024 ambulatory Jean Trujillo [facility] Start: 11-23-2024 Dr. Jean Trujillo MD [facility] Start: 11-22-2024 Dr. Radha Dumont MD [facility] Start: 11-22-2024 Dr. Haider ROMAN [facility] Work Phone: Start: 11-21-2024 ambulatory [facility] Facility :[facility] Start: 11-21-2024 Dr. Radha Dumont MD [facility] Start: 11-21-2024 Dr. Haider ROMAN [facility] Work Phone: Start: 11-20-2024 ambulatory Mariah Brewer [facility] Start: 11-20-2024 End: 11-26-2024 Evaluation and management of inpatient No Primary Care Physician [facility] Work Phone: Start: 11-20-2024 End: 11-26-2024 Dr. Denisse Guan MD -Progressive Care Unit Work Phone: Start: 11-20-2024 Evaluation and manag ement of inpatient Dr. Mariah Brewer MD -Intensive Care Unit Work Phone: Start: 11-20-2024 ambulatory Mariah Brewer [facility] Start: 11-09-2024 End: 11-09-2024 ambulatory Jean Trujillo Facility:[facility] Start: 11-09-2024 End: 11-09-[address] Jean Trujillo MD -[facility] Work Phone: Start: 11-09-2024 End: 11-09-2024 Dr. Jean Trujillo MD -[facility] Work Phone: Start: 11-07-2024 End: 11-07-2024 Dr. Jeremiah Henley MD -Emergency Departmen t Work Phone: Start: 11-07-2024 End: 11-07-2024 Emergency department patient visit Dr. Jeremiah Henley MD -Emergency Department Work Phone: Start: 11-04-2024 End: 11-04-2024 Patient encounter procedure Shawanda Keane [place] -[facility] Work Phone: Start: 11-04-2024 End: 11-04-2024 Shawanda Keane [facility] Work Phone: Start: 11-04-2024 End: 11-04-2024 ambulatory Lisseth Peñaloza Facility:[facility] Start: 10-19-2024 End: 10-19-[address] Lisseth Peñaloza MD -[facility] Work Phone: Start: 10-19-2024 End: 10-19-2024 Dr. Lisseth Peñaloza MD -[facility] Work Phone: Start: 10-19-2024 End: 10-19-2024 ambulatory Lisseth Peñaloza Facility:[facility] Start: 10-15-2024 End: 10-15-2024 Patient encounter procedure Sonia Quarles NP-[place] -[facility] Work Phone: Start: 10-15-2024 End: 10-15-2024 Sonia Quarles SAND BUFFER-C -[facility] Work Phone: Start: 10-15-2024 End: 10-15-2024 ambulatory Lisseth Jh Facility:[facility] Start: 09-07-2024 End: 09-07-[address] Lisseth Peñaloza MD -[facility] Work Phone: Start: 09-07-2024 End: 09-07-2024 Dr. Lisseth Peñaloza MD -[facility] Work Phone: Start: 09-07-2024 End: 09-07-2024 ambulatory Lissethcarola Sarahlay Facility:[facility] Start: 08-26-2024 End: 08-26-[address] Lisseth Peñaloza MD -Laboratory, [place] Start: 08-26-2024 End: 08-26-2024 Dr. Lisseth Peñaloza MD -Laboratory [place] Start: 08-26-2024 End: 08-26-2024 ambulatory Lisseth Beaver Facility:[facility] Start: 08-05-2024 End: 08-05-[address] Lisseth Peñaloza MD -[facility] Work Phone: Start: 08-05-2024 End: 08-05-2024 Dr. Lisseth Peñaloza MD -[facility] Work Phone: Start: 08-05-2024 End: 08-05-2024 ambulatory Lisseth Beaver Facility:[facility] Start: 05-29-2024 End: 05-29-2024 ambulatory No Primary Care Physician Facility:[facility] Start: 05-26-2024 ambulatory No Primary Car e Physician Facility:[facility] Start: 05-26-2024 End: 05-26-2024 ambulatory Jean Trujillo Facility:[facility] Start: 05-20-2024 ambulatory No Primary Car e Physician Facility:[facility] Start: 05-08-2024 End: 05-08-2024 ambulatory Jeanie Murphy RN Work Phone: [employer] Start: 05-08-2024 End: 05-08-2024 Home visit Jeanie Murphy RN Work Phone: [employer] Comment on above: Primary Care Coordin ator- Other (Discharged new PCP) Start: 05-06-2024 End: 05-06-2024 ambulatory No Primary Care Physician Facility:[facility] Start: 04-10-2024 End: 04-10-2024 Telephone encounter Homar Vasques MD Work Phone: [facility] Comment on above: Patient Update (No l onger a patient) Start: 04-07-2024 End: 04-08-2024 Refill Williams Rubin MD Work Phone: [facility] Comment on above: Refill Request Start: 04-03-2024 End: 04-03-2024 ambulatory Jeanie Murphy RN Work Phone: [employer] Start: 04-03-2024 End: 04-03-2024 Home visit Jeanie Murphy RN Work Phone: 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 [employer]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 Comment on above: Primary Care Coordin ator Chronic Care (Attempted PCC follow up) Start: 04-03-2024 End: 04-03-2024 Telephone encounter Williams Rubin MD Work Phone: [facility] Comment on above: No Show Start: 03-19-2024 End: 03-19-2024 ambulatory Jeanie Murphy RN Work Phone: [employer] Start: 03-19-2024 End: 03-19-2024 Home visit Jeanie Murphy RN Work Phone: Director Of Payroll Comment on above: Primary Care Coordin ator Chronic Care (Attempted PCC follow up) Primary Care Coordin ator Chronic Care (PCC follow up) Start: 03-09-2024 End: 03-10-2024 Refill Williams Rubin MD Work Phone: [facility] Comment on above: Refill Request Start: 03-05-2024 End: 03-07-2024 Refill Manny Shields MD Work Phone: [facility] Comment on above: Refill Request Start: 03-03-2024 End: 03-03-2024 ambulatory Jeanie Murphy RN Work Phone: [employer] Start: 03-03-2024 End: 03-03-2024 Home visit Jeanie Murphy RN Work Phone: Director Of Payroll Comment on above: Primary Care Coordin ator Chronic Care (Attempted to contact patient with PCP medication instruction) Start: 02-26-2024 End: 02-26-2024 ambulatory Jeanie Murphy RN [employer] Start: 02-26-2024 Home visit [facility]ie Murphy [facility] Comment on above: Transition Of Care ( ER follow up, [place], 02/24/2024) Start: 02-26-2024 End: 02-26-2024 Patient encounter procedure [facility] Comment on above: Type 2 diabetes glenda itus with diabetic neuropathy, with long- term current use of insulin (HCC) (Primary Dx); Uses self-applied continuous glucose monitoring device; Diabetes education, encounter for; Encounter for medication counseling; Preventative health care; Complex care coordination Start: 02-26-2024 End: 02-26-2024 Patient encounter status [facility] Start: 02-24-2024 Emergency department patient visit HOMAR VASQUES Facility:[facility] Start: 02-24-2024 Telephone encounter Williams apple MD Work Phone: [facility] Comment on above: Opened In Error Start: 02-20-2024 Telephone encounter Williams apple MD Work Phone: [facility] [facility] Comment on above: Patient Question Start: 02-13-2024 ambulatory Jeanie Murphy RN AG [facility] Start: 02-13-2024 Home visit Jeanie Murphy RN AG [facility] Comment on above: Primary Care Coordin ator Chronic Care (PCC follow up) Start: 02-12-2024 Telephone encounter Williams apple MD Work Phone: [facility] Comment on above: Rx Refills Refill Request Start: 02-11-2024 Refill Manny Shields MD Work Phone: [facility] Comment on above: Refill Request Start: 01-29-2024 End: 01-29-2024 ambulatory JAMIE AGGARWAL Facility:[facility] Start: 01-29-2024 End: 01-29-2024 ambulatory HOMAR VASQUES Facility:[facility] Start: 01-29-2024 End: 01-29-2024 Patient encounter procedure [facility] Comment on above: Type 2 diabetes glenda [...] 01-29-2024 Patient encounter status Pharm D Clinic [facility] Cli josh Start: 01-07-2024 ambulatory Jeanie Murphy RN Ambul [...] on Victoza change) Start: 12-27-2023 ambulatory Jeanie KELLY [facility] Start: 12-27-2023 Home visit Jeanie Murphy RN [facility] Comment on above: Primary Care Coordin ator Chronic Care (Attempted outreach) Start: 12-26-2023 ambulatory Jeanie KELLY [facility] Start: 12-26-2023 Home visit Jeanie Murphy RN [facility] Comment on above: Primary Care Coordin ator Chronic Care (PCC follow up) Start: 12-24-2023 End: 12-24-2023 Patient encounter procedure Manny Shields MD Work Phone: [facility] Comment on above: Type 2 diabetes glenda itus with diabetic neuropathy, with long- term current use of insulin (HCC) (Primary Dx); Dyspepsia; Nausea Start: 12-24-2023 End: 12-24-2023 ambulatory MANNY SHIELDS Facility:[facility] Start: 12-06-2023 ambulatory Jeanie Murphy RN [facility] Start: 12-06-2023 Home visit Jeanie Murphy RN [facility] Comment on above: Primary Care Coordin ator Chronic Care (Attempted PCC follow up) Start: 12-05-2023 Telephone encounter Sonia Whitt darius [facility] Work Phone: [facility] Comment on above: No Show Appointment Start: 11-29-2023 ambulatory Jeanie Murphy RN [facility] Start: 11-29-2023 Home visit Jeanie Murphy RN [facility] Comment on above: Primary Care Coordin ator Chronic Care (PCC follow up) Start: 11-27-2023 Telephone encounter Williams apple MD Work Phone: [facility] Comment on above: Forms (Specialty med ical- glucose monitor) Start: 11-15-2023 Telephone encounter Veronica Steiner [facility] Comment on above: Colonoscopy Referral Refill Request Start: 11-14-2023 End: 11-14-2023 Patient encounter procedure Pharm D [facility] Comment on above: Uses self-applied co ntinuous glucose monitoring device (Primary Dx); Type 2 diabetes mellitus with diabetic neuropathy, with long-term current use of insulin (HCC); Preventative health care; Diabetes education, encounter for Start: 11-14-2023 End: 11-14-2023 Patient encounter status Pharm D [facility] Cli josh Start: 11-14-2023 End: 11-14-2023 ambulatory HOMAR VASQUES Facility:[facility] Start: 11-08-2023 ambulatory Jeanie Murphy RN [facility] Start: 11-08-2023 Home visit Jeanie Murphy RN [facility] Comment on above: Primary Care Coordin ator Chronic Care (PCC follow up) Start: 11-05-2023 Telephone encounter Williams apple MD Work Phone: [facility] Comment on above: Forms (Specialty- gl ucose monitor) Start: 10-31-2023 Telephone encounter Homar Vasques MD Work Phone: [facility] Comment on above: Initial Consult Start: 10-30-2023 End: 10-30-2023 ambulatory HOMAR VASQUES Facility:[facility] Start: 10-30-2023 Encounter for genera l adult medical examination without abnormal findings HOMAR VASQUES [facility] Start: 10-30-2023 End: 10-30-2023 Patient encounter procedure [facility] Comment on above: Type 2 diabetes glenda itus with diabetic neuropathy, with long- term current use of insulin (HCC) (Primary Dx); Uses self-applied continuous glucose monitoring device; Preventative health care; Diabetes education, encounter for; Screening for colon cancer Start: 10-30-2023 End: 10-30-2023 Patient encounter status Pharm D [facility] Cli josh Work Phone: Start: 10-22-2023 End: 10-22-2023 ambulatory HOMAR VASQUES Facility:[facility] Start: 10-22-2023 End: 10-22-2023 Follow-up encounter Ronny Wheeler MD Work Phone: [facility] Comment on above: Remote Pacemaker Fol low Up Start: 10-22-2023 ICD Remote F/U Ronny Wheeler MD Work Phone: [facility] Start: 10-22-2023 End: 10-22-2023 Patient encounter procedure Rem Device Ck [facility] Comment on above: Refill Request Start: 10-06-2023 End: 10-06-2023 Emergency department patient visit [facility] Work Phone: Start: 09-24-2023 Refill Manny Shields MD Work Phone: [facility] Comment on above: Refill Request Start: 09-20-2023 ambulatory Jeanie Murphy RN AG VNS Start: 09-20-2023 Follow-up encounter 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 Director Of Payroll Comment on above: Primary Care Coordin ator Chronic Care (PCC follow up) Start: 09-19-2023 Telephone encounter Williams apple MD Work Phone: [facility] Comment on above: Medication Authoriza tion (Victoza ) Medication Authoriza tion (Freestyle Lance 2 sensor) Start: 09-12-2023 End: 09-12-2023 Patient encounter procedure [facility] Comment on above: Type 2 diabetes glenda itus with diabetic neuropathy, with long- term current use of insulin (HCC) (Primary Dx); Preventative health care; Food insecurity; Diabetes education, encounter for Start: 09-12-2023 End: 09-12-2023 Patient encounter status [facility] D [facility] Cli josh Work Phone: Start: 09-12-2023 End: 09-12-2023 ambulatory HOMAR VASQUES Facility:[facility] Start: 09-06-2023 End: 09-06-2023 ambulatory Jeanie Murphy RN AG VNS Start: 09-06-2023 Follow-up encounter 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 Director Of Payroll Comment on above: Primary Care Coordin ator Chronic Care (Attempted PCC follow up) Start: 09-04-2023 Refill Manny Shields MD Work Phone: [facility] Comment on above: Refill Request Start: 08-30-2023 End: 08-30-2023 Patient encounter procedure Williams Rubin MD Work Phone: [facility] Comment on above: Type 2 diabetes glenda itus with diabetic neuropathy, with long- term current use of insulin (HCC) (Primary Dx); Anxiety with depression; Chronic constipation; Intertrigo; Type 2 diabetes mellitus with complication, without long-term current use of insulin (HCC) Start: 08-30-2023 End: 08-30-2023 ambulatory WILLIAMS RUBIN Facility:[facility] Start: 08-22-2023 Refill Abbey chavez CAROL Work Phone: [facility] Comment on above: Medication Refill Start: 07-18-2023 End: 07-18-2023 ambulatory HOMAR VASQUES Facility:[facility] Start: 06-27-2023 ambulatory Jeanie Murphy RN AG VNS Start: 06-27-2023 Follow-up encounter 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 Director Of Payroll Comment on above: Primary Care Coordin ator Chronic Care (Attempted PCC follow up) Start: 06-26-2023 Telephone encounter Williams apple MD Work Phone: [facility] Comment on above: Patient Question Start: 06-20-2023 Telephone encounter Williams apple MD Work Phone: [facility] Comment on above: Medication Authoriza tion (Basaglar kwikpen 100unit/ml) Start: 06-18-2023 ambulatory Jeanie Murphy RN AG VNS Start: 06-18-2023 Follow-up encounter 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 Director Of Payroll Comment on above: Primary Care Coordin ator Chronic Care (PCC follow up) Start: 06-18-2023 Telephone encounter Homar Vasques MD Work Phone: [facility] Start: 06-17-2023 Telephone encounter Williams apple MD Work Phone: [facility] Comment on above: Results Start: 06-14-2023 Telephone encounter Williams apple MD Work Phone: [facility] Comment on above: Patient Update Start: 05-20-2023 End: 05-20-2023 ambulatory WILLIAMS RUBIN Facility:[facility] Start: 05-06-2023 Telephone encounter Williams apple MD Work Phone: [facility] Comment on above: No Show Start: 05-01-2023 Telephone encounter Sonia mccoy [facility] Work Phone: [facility] Comment on above: No Show (Diabetes fo llow up) Start: 04-19-2023 ambulatory Jeanie Murphy RN AG VNS Start: 04-19-2023 Follow-up encounter Jeanie Murphy RN A G Director Of Payroll Comment on above: Primary Care Coordin ator Chronic Care (Attempted PCC follow up) Start: 04-15-2023 Telephone encounter Williams apple MD Work Phone: [facility] Comment on above: Medication Problem Start: 04-09-2023 Refill Jay Her DO Work Phone: [facility] Comment on above: Refill Request Start: 04-05-2023 ambulatory Jeanie Murphy RN [facility] Comment on above: Primary Care Coordin ator Chronic Care (Intake) Start: 04-03-2023 End: 04-03-2023 ambulatory Device 1 [facility] Comment on above: ICD Start: 04-03-2023 Follow-up encounter Ronny Wheeler MD Work Phone: [facility] Start: 04-03-2023 End: 04-03-2023 Patient encounter procedure Ronny Wheeler MD Work Phone: [facility] Start: 04-03-2023 Telephone encounter Williams apple MD Work Phone: [facility] Comment on above: Medication Authoriza tion (Ozempic 2 mg/ 3 mL pen) Start: 03-29-2023 End: 03-29-2023 Patient encounter procedure Jay Her DO Work Phone: [facility] Comment on above: Type 2 diabetes glenda itus with diabetic neuropathy, with long- term current use of insulin (HCC) (Primary Dx); Depression, unspecified depression type Start: 03-26-2023 Refill Williams Rubin MD Work Phone: [facility] Comment on above: Refill Request Start: 03-25-2023 ambulatory Williams Rubin MD Work Phone: [facility] Start: 03-15-2023 End: 03-15-2023 Patient encounter procedure Manny Shields MD Work Phone: [facility] Comment on above: Type 2 diabetes glenda itus with diabetic neuropathy, with long- term current use of insulin (HCC) (Primary Dx); Encounter for immunization; Medication management Start: 03-15-2023 Refill Jay Her DO Work Phone: [facility] Comment on above: Refill Request Start: 03-12-2023 Refill Williams Rubin MD Work Phone: [facility] Comment on above: Refill Request Start: 03-04-2023 Refill Williams Rubin MD Work Phone: [facility] Comment on above: Refill Request (One Touch Ultra Test Strips ) Start: 03-01-2023 End: 03-01-2023 Patient encounter procedure Williams Rubin MD Work Phone: [facility] Comment on above: Type 2 diabetes glenda itus with diabetic neuropathy, with long- term current use of insulin (HCC) (Primary Dx); Essential hypertension, benign; Coronary artery disease involving [place] heart without angina pectoris, unspecified vessel or lesion type; Restless leg syndrome Start: 02-11-2023 Telephone encounter Williams apple MD Work Phone: [facility] Comment on above: Opened In Error Start: 01-29-2023 End: 01-29-2023 Patient encounter procedure Ronny Wheeler MD Work Phone: [facility] Comment on above: NICM (nonischemic ca rdiomyopathy) (HCC) (Primary Dx); Cardiac resynchronization therapy defibrillator (RESISTOR INSPECTOR-D) in place; Primary hypertension Start: 01-25-2023 End: 01-25-2023 ambulatory HOMAR VASQUES Facility:[facility] Start: 01-24-2023 Telephone encounter Jay qureshi DO Work Phone: [facility] Comment on above: REFERRAL (To [facility] n[facility]) Start: 01-22-2023 End: 01-22-2023 Patient encounter procedure Jay Her DO Work Phone: [facility] Comment on above: Encounter to [facility] with new doctor (Primary Dx); Type 2 [...] Telephone encounter Ronny Wheeler MD Work Phone: [facility] Comment on above: Appointment Start: 10-15-[address] [facility] Ambulatory Start: 10-15-2022 Refill Abbey Landaverde an [employer]IPPING AND RECEIVING WEIGHER Work Phone: [facility] Comment on above: Medication Refill Start: 10-12-2022 Orders Only Abbey Landaverde an [employer]IPPING AND RECEIVING WEIGHER Work Phone: [facility] Start: 10-10-2022 Refill Abbey Landaverde an SHIPPING AND RECEIVING WEIGHER Work Phone: [facility] Comment on above: Medication Refill Start: 10-09-2022 Refill Abbey Landaverde an SHIPPING AND RECEIVING WEIGHER Work Phone: [facility] Comment on above: Medication Refill Start: 10-04-2022 Refill Abbey Landaverde an SHIPPING AND RECEIVING WEIGHER Work Phone: [facility] Comment on above: Medication Refill Start: 09-19-2022 ambulatory CAM QUARLES [facility] Start: 09-19-2022 Encounter for gynecological examination (general) (routine) without abnormal findings CAM QUARLES [facility] Start: 09-18-2022 ambulatory Lisa Aj MD [facility] ity:[facility] Start: 06-13-2022 ambulatory HA [facility]IV[facility] Start: 05-05-2022 End: 05-07-2022 ambulatory PHYSICIAN NO [facility] Start: 05-02-2022 End: 05-02-2022 ambulatory Sly Nix DPShanell Facility:[facility] Start: 05-02-2022 End: 05-02-2022 Discharged Recurring SAND BUFFER Ha Rivas Work Phone: [facility] MED-Woundcare Services Start: 05-01-2022 End: 05-01-[address] [facility] Ambulatory Start: 04-30-2022 End: 04-30-2022 Emergency department patient visit Ha Rivas Facility:[facility] Start: 04-30-2022 End: 04-30-2022 Emergency department patient visit SAND BUFFER [facility] Start: 04-25-2022 Registered Recurring SAND BUFFER aH Rivas Work Phone: [facility] Start: 04-23-2022 ambulatory PHYSICIAN NO [facility] Ambulatory Start: 04-20-2022 End: 04-21-2022 ambulatory MILKA RODRIGUEZ [facility] Start: 04-20-2022 End: 04-20-2022 Subsequent hospital visit by physician JAN KOVACS Start: 04-09-2022 End: 04-09-2022 ambulatory PHYSICIAN NO [facility] Ambulatory Start: 04-09-2022 End: 04-09-2022 Office outpatient visit 25 minutes Milka Rodriguez MD Work Phone: [facility] Comment on above: Nonischemic cardiomy opathy (HCC) (Primary Dx); Benign essential HTN; HFrEF (heart failure with reduced ejection fraction) (HCC); Heart failure with preserved ejection fraction, unspecified HF chronicity (HCC) Start: 04-03-2022 Office outpatient vi sit 15 minutes SLY NIX DPM Work Phone: Sly Nix D.P.M. Work Phone: Start: 03-22-2022 End: 03-22-2022 ambulatory Ha Rivas Facility:[facility] Start: 03-22-2022 End: 03-22-2022 Patient encounter procedure SAND BUFFER Ha Rivas Work Phone: [facility] MED-Ultrasound Start: 03-08-2022 ambulatory HA RIVAS [facility] Start: 03-07-2022 End: 03-07-2022 ambulatory Ha HansMiguelina Rivas Facility:[facility] Start: 03-07-2022 End: 03-07-2022 Patient encounter procedure SAND BUFFER Ha Rivas Work Phone: [facility] MED-Reference Lab Start: 03-07-2022 End: 03-07-2022 ambulatory HA RIVAS [facility] Start: 03-01-2022 End: 03-02-2022 ambulatory DAVE PHAN [facility] Start: 03-01-2022 End: 03-01-2022 Subsequent hospital visit by physician Dave Phan MD Work Phone: [facility] Comment on above: Subclinical hyperthy roidism Start: 02-15-2022 Office outpatient vi sit 25 minutes Janice Zuniga [facility] Start: 02-06-2022 End: 02-06-2022 ambulatory Ha Rivas Facility:[facility] Start: 02-06-2022 End: 02-06-2022 Patient encounter procedure SAND BUFFER Ha Rivas Work Phone: [facility] MED-Reference Lab Start: 02-06-2022 End: 02-06-2022 ambulatory HA RIVAS [facility] Start: 01-30-2022 End: 01-30-2022 ambulatory PHYSICIAN [facility] Start: 01-25-2022 Office outpatient vi sit 25 minutes MATEO KUMAR Work Phone: Vlad Alaniz MD, [facility], [facility] Work Phone: Start: 01-23-2022 End: 01-23-2022 ambulatory HA RIVAS [facility] Start: 01-11-2022 Office outpatient vi sit 15 minutes SLY NIX DPM Work Phone: Sly Boyd, D.P.M. Work Phone: Start: 12-12-2021 Office outpatient vi sit 25 minutes SLY KEARNEYM Work Phone: Gisselle LemosPGarry. Work Phone: Start: 12-06-2021 Office outpatient vi sit 15 minutes Janice Zuniag [facility] Start: 11-24-2021 ambulatory PHYSICIAN NO [facility] Ambulatory Start: 11-21-2021 End: 11-21-2021 ambulatory Vlad Alaniz MD Facility:[facility] Start: 11-13-2021 Office outpatient vi sit 25 minutes SLY NIX DPM Work Phone: Gisselle LemosP.M. Work Phone: Start: 10-24-2021 End: 10-24-2021 ambulatory HA RIVAS [facility] Start: 10-24-2021 End: 10-24-2021 ambulatory PHYSICIAN NO [facility] Start: 10-13-2021 Orders Only Juany Harden RN [facility] Comment on above: Nonischemic cardiomy opathy (HCC) (Primary Dx) Start: 10-13-2021 End: 10-13-2021 Office outpatient visit 15 minutes Abbey Oliveira CNP Work Phone: [facility] Comment on above: Nonischemic cardiomy opathy (HCC); Dyslipidemia; Benign essential HTN Start: 10-10-2021 End: 10-11-2021 ambulatory DAVE PHAN [facility] Start: 10-10-2021 End: 10-10-2021 Subsequent hospital visit by physician Dave Phan MD Work Phone: [facility] Comment on above: Subclinical hyperthy roidism Start: 10-09-2021 Postop follow up vis it related to original px SLY NIX DPM Work Phone: Sly Nix D.P.M. Work Phone: Start: 10-05-2021 ambulatory Dave Phan Facil ty:[facility] Start: 10-03-2021 Office outpatient vi sit 25 minutes Vlad Alaniz MD Work Phone: Vlad Alaniz MD, [facility], [facility] Work Phone: Start: 09-28-2021 End: 09-28-2021 ambulatory DVAE PHAN [facility] Start: 09-18-2021 Postop follow up vis it related to original px SLY NIX DPM Work Phone: Gisselle LemosPMiguelinaMMiguelina Work Phone: Start: 09-05-2021 Postop follow up vis it related to original px SLY NIX DPM Work Phone: Gisselle LemosP.MMiguelina Work Phone: Start: 08-30-2021 End: 09-06-2021 Patient encounter procedure Dave Phan MD Work Phone: [facility] Start: 08-25-2021 Postop follow up vis it related to original px SLY NIX DPM Work Phone: Gisselle LemosP.MMiguelina Work Phone: Start: 08-03-2021 Office outpatient vi sit 25 minutes Janice Zuniga [facility] Start: 07-27-2021 Office outpatient vi sit 25 minutes SLY NIX DPM Work Phone: Gisselle LemosPMiguelinaMMiguelina Work Phone: Start: 07-18-2021 End: 07-18-2021 ambulatory NICK SLAUGHTER [facility] Start: 07-03-2021 Postop follow up vis it related to original px SLY NIX DPM Work Phone: Gisselle LemosPEsteban Work Phone: Start: 06-20-2021 Postop follow up vis it related to original px SLY David BOYD DPM Work Phone: Gisselle LemosPEsteban Work Phone: Start: 06-13-2021 Postop follow up vis it related to original px SLY David BOYD DPM Work Phone: Sly Nix D.P.M. Work Phone: Start: 05-11-2021 Office outpatient vi sit 25 minutes Janice Efrain [facility] Start: 05-04-2021 Office outpatient vi sit 25 minutes SLY Hernandez BOYD DPM Work Phone: Gisselle LemosP.MMiguelina Work Phone: Start: 03-30-2021 Office outpatient vi sit 15 minutes SLY David BOYD DPM Work Phone: Gisselle LemosP.MMiguelina Work Phone: Start: 03-14-2021 Refill Abbey chavez [employer] RECEIVING [employer]HER Work Phone: [facility] Comment on above: Medication Refill Start: 02-15-2021 Office outpatient vi sit 25 minutes Janice Efrain [facility] Start: 01-25-2021 Office outpatient vi sit 15 minutes MATEO KUMAR Work Phone: [facility], [facility] Work Phone: Start: 01-12-2021 Office outpatient vi sit 15 minutes SLY David NIX DPM Work Phone: Gisselle LemosPMiguelinaMMiguelina Work Phone: Start: 12-19-2020 End: 12-19-2020 Refill Abbey Oliveira CNP Work Phone: [facility] Comment on above: Medication Refill Start: 12-14-2020 Office outpatient vi sit 25 minutes THOMAS SILVA MD Work Phone: [facility] Work Phone: Start: 11-21-2020 End: 11-21-2020 Refill Abbey Oliveira CNP Work Phone: [facility] Comment on above: Medication Refill Start: 11-17-2020 Office outpatient vi sit 10 minutes THOMAS SILVA MD Work Phone: [facility] Work Phone: Start: 11-17-2020 Office outpatient vi sit 15 minutes SLY NIX DPM Work Phone: Naomi Lemos.P.M. Work Phone: Start: 11-01-2020 Office outpatient vi sit 15 minutes SLY NIX DPM Work Phone: Naomi Lemos.P.M. Work Phone: Start: 10-27-2020 Office outpatient vi sit 15 minutes THOMAS SILVA MD Work Phone: [facility] Work Phone: Start: 10-25-2020 End: 10-25-2020 Refill Abbey Oliveira Work Phone: [facility] Comment on above: Medication Refill Start: 10-13-2020 Office outpatient vi sit 15 minutes SLY NIX DPM Work Phone: Naomi Lemos.P.M. Work Phone: Start: 10-07-2020 End: 10-07-2020 Office outpatient visit 25 minutes Milka Rodriguez Work Phone: [facility] Comment on above: ICD (implantable car dioverter-defibrillator) in place (Primary Dx); Nonischemic cardiomyopathy (HCC); Dyslipidemia; Preoperative cardiovascular examination Start: 09-21-2020 End: 09-21-2020 Orders Only Barbara Mayberry Michelle Work Phone: [facility] Start: 07-29-2020 End: 07-29-2020 Orders Only Abbey Oliveira Work Phone: [facility] Comment on above: Benign essential HTN (Primary Dx) Medication Refill Start: 06-07-2020 End: 06-07-2020 Subsequent hospital visit by physician Nick Branch Work Phone: [facility] Comment on above: Arrived Start: 04-05-2020 End: 04-05-2020 Office outpatient visit 15 minutes Abbey Oliveira Work Phone: [facility] Comment on above: Nonischemic cardiomy opathy (HCC) Start: 03-01-2020 End: 03-01-2020 Subsequent hospital visit by physician Nick Branch Work Phone: [facility] Comment on above: Arrived Start: 12-29-2019 End: 12-29-2019 Documentation procedure Marlene D Cecil [facility] Start: 12-29-2019 End: 12-29-2019 Office outpatient visit 10 minutes Abbey Oliveira Work Phone: [facility] Comment on above: PAXTON (obstructive sle ep apnea) (Primary Dx); Nonischemic cardiomyopathy (HCC) Start: 12-15-2019 End: 12-15-2019 Office outpatient visit 15 minutes Abbey Oliveira Work Phone: [facility] Comment on above: MCKNIGHT (dyspnea on exer tion) (Primary Dx); Nonischemic cardiomyopathy (HCC) Start: 09-01-2019 End: 09-01-2019 Orders Only Unspecified Provider [facility] Start: 09-01-2019 End: 09-01-2019 Telephone encounter Ha Rivas Work Phone: [facility] Comment on above: Other Start: 08-26-2019 End: 08-26-2019 Telephone encounter Ha Rivas Work Phone: [facility] Comment on above: Other Start: 08-21-2019 End: 08-21-2019 Documentation procedure Nilam Garrett [facility] Start: 08-21-2019 End: 08-21-2019 Office outpatient new 45 minutes David Silva Work Phone: [facility] Comment on above: Benign essential HTN ; Dyslipidemia; Pre-operative cardiovascular examination; Pacemaker; Nonischemic cardiomyopathy (HCC); ICD (implantable cardioverter-defibrillator) in place; Gastroesophageal reflux disease without esophagitis; Depression, unspecified depression type; Establishing care with new doctor, encounter for; MCKNIGHT (dyspnea on exertion) Start: 08-18-2019 End: 08-18-2019 Orders Only Unspecified Provider [facility] Start: 08-18-2019 End: 08-18-2019 Office outpatient visit 15 minutes Ha Rivas Work Phone: [facility] Comment on above: Pre-operative cleara nce (Primary Dx); Other eczema Start: 08-13-2019 End: 08-13-2019 Letter encounter Kim Perera [facility] Start: 08-11-2019 End: 08-11-2019 Refill Ha Rivas Work Phone: [facility] Comment on above: Type 2 diabetes glenda itus without complication, without long- term current use of insulin (HCC) Start: 08-11-2019 End: 08-11-2019 Telephone encounter Ha Rivas Work Phone: [facility] Comment on above: Surgical Clearance Start: 08-03-2019 End: 08-03-2019 Refill Ha Rivas Work Phone: [facility] Comment on above: Type 2 diabetes glenda itus without complication, without long- term current use of insulin (HCC) Start: 08-03-2019 End: 08-03-2019 Refill Ha Rivas Work Phone: [facility] Comment on above: Type 2 diabetes glenda itus without complication, with long-term current use of insulin (HCC) (Primary Dx); Type 2 diabetes mellitus without complication, without long-term current use of insulin (HCC) Start: 07-31-2019 End: 07-31-2019 Refill Keshia Sterling Work Phone: [facility] Comment on above: Trichomonal vaginiti s (Primary Dx) Start: 07-28-2019 End: 07-28-2019 Periodic preventive med est patient 40-64yrs Keshia Sterling Work Phone: [facility] Comment on above: Well woman exam with routine gynecological exam (Primary Dx); BMI 33.0-33.9,adult; Screen for STD (sexually transmitted disease); Stress incontinence Start: 05-30-2018 End: 05-30-2018 Patient encounter procedure [facility] Start: 03-29-2017 End: 03-29-2017 [facility] Procedures Date Procedure Procedure Detail Performing Clinician Start: 01-11-2025 CARDIAC RHYTHM (SCANNED) Other Other OT Start: 01-11-2025 Glucose measurement, blood John Castro MD Work Phone: Start: 01-11-2025 Glucose measurement, blood John Castro MD Work Phone: Start: 01-11-2025 CBC AND ELECTRONIC DIFF Liliana Syed [employer] A[employer]LYST[employer]SHIPPING AND RECEIVING WE[employer]HER Work Phone: Start: 01-11-2025 Complete blood count with white cell differential, automated Liliana Syed [employer] ANALYST-SHIPPING AND RECEIVING WEIGHER Work Phone: Start: 01-11-2025 Creatine kinase total A my M Mateus [employer]S ANALYST-SHIPPING AND RECEIVING WEIGHER Work Phone: Start: 01-11-2025 Hepatic function panel Bekah Criselda Ann [employer]S ANALYST-SHIPPING AND RECEIVING WEIGHER Work Phone: Start: 01-11-2025 Glucose measurement, blood John Castro MD Work Phone: Start: 01-10-2025 Glucose measurement, blood Moe Bernard MD Work Phone: Start: 01-10-2025 Creatine kinase total A imee E Sisinger [employer]IGHTS ANALYST-SHIPPING AND RECEIVING WEIGHER Work Phone: Start: 01-10-2025 Glucose measurement, blood Vaiinolan Bernard MD Work Phone: Start: 01-10-2025 Glucose measurement, blood Vaiinolan Bernard MD Work Phone: Start: 01-10-2025 Bilirubin direct Bekah E Sischarly [employer]S ANALYST-SHIPPING AND RECEIVING WEIGHER Work Phone: Start: 01-10-2025 CBC AND ELECTRONIC DIFF Liliana L Hunn [employer]S ANALYST-SHIPPING AND RECEIVING WEIGHER Work Phone: Start: 01-10-2025 Complete blood count with white cell differential, automated Liliana L Hunn [employer]S ANALYST-SHIPPING AND RECEIVING WEIGHER Work Phone: Start: 01-10-2025 Glucose measurement, blood Claudiaiinolan Bernard MD Work Phone: Start: 01-09-2025 Glucose measurement, blood Vaiibhav Jatin Bernard MD Work Phone: Start: 01-09-2025 Creatine kinase total A imee Criselda Ann [employer]S ANALYST-SHIPPING AND RECEIVING WEIGHER Work Phone: Start: 01-09-2025 End: 01-09-2025 Glucose measurement, blood Vaiibhav Jatin frias MD Work Phone: Start: 01-09-2025 Glucose measurement, blood Vaiibhav Jatin Bernard MD Work Phone: Start: 01-09-2025 Glucose measurement, blood Vaiibhav Jatin Bernard MD Work Phone: Start: 01-09-2025 CBC AND ELECTRONIC DIFF Liliana L Hunn [employer]S ANALYST-SHIPPING AND RECEIVING WEIGHER Work Phone: Start: 01-09-2025 Complete blood count with white cell differential, automated Liliana L Hunn [employer]S ANALYST-SHIPPING AND RECEIVING WEIGHER Work Phone: Start: 01-09-2025 Creatine kinase total A my Shanell Ignacio [employer]S ANALYST-SHIPPING AND RECEIVING WEIGHER Work Phone: Start: 01-09-2025 Hepatic function panel Liliana Syed [employer]S ANALYST-SHIPPING AND RECEIVING WE[employer]HER Work Phone: Start: 01-09-2025 Glucose measurement, blood Moe Bernard MD Work Phone: Start: 01-08-2025 Glucose measurement, blood Moe Bernard MD Work Phone: Start: 01-08-2025 Creatine kinase total J alma Coleman [employer]S ANALYST-SHIPPING AND RECEIVING WEIGHER Work Phone: Start: 01-08-2025 Hepatic function panel Romelia Rodartecelina [employer]S ANALYST-SHIPPING AND RECEIVING WEIGHER Work Phone: Start: 01-08-2025 Glucose measurement, blood Moe Bernard MD Work Phone: Start: 01-08-2025 Glucose measurement, blood Moe Bernard MD Work Phone: Start: 01-08-2025 EXTRA MICRO Romelia kaminski [employer]S ANALYST-SHIPPING AND RECEIVING WE[employer]HER Work Phone: Start: 01-08-2025 Extractable nuclear antigen antibody any method Romelia Coleman [employer]S ANALYST-SHIPPING AND RECEIVING WE[employer]HER Work Phone: Start: 01-08-2025 Myoglobin Romelia kaminski [employer]S ANALYST-SHIPPING AND RECEIVING WE[employer]HER Work Phone: Start: 01-08-2025 URINALYSIS REFLEX TO CULTURE Romelia Coleman [employer]S ANALYST-SHIPPING AND RECEIVING WE[employer]HER Work Phone: Start: 01-08-2025 Urnls dip stick/tabl et reagent auto microscopy Romeliaezio Rodartecelina [employer]S ANALYST-SHIPPING AND RECEIVING WEIGHER Work Phone: Start: 01-08-2025 Glucose measurement, blood Moe Bernard MD Work Phone: Start: 01-08-2025 CBC AND ELECTRONIC DIFF Liliana Syed [employer] ANALYST[employer]SHIPPING AND RECEIVING WE[employer]HER Work Phone: Start: 01-08-2025 Complete blood count with white cell differential, automated Liliana L Kolbyn [employer] ANALYST-SHIPPING AND RECEIVING WE[employer]HER Work Phone: Start: 01-08-2025 Creatine kinase total M brandyn Garcia Camilo [employer]S ANALYST-SHIPPING AND RECEIVING WEIGHER Work Phone: Start: 01-08-2025 Hepatic function panel Aby Orozco [facility] Start: 01-08-2025 Glucose measurement, blood Moe Bernard MD Work Phone: Start: 01-07-2025 Glucose measurement, blood Moe Bernard MD Work Phone: Start: 01-07-2025 Glucose measurement, blood Moe Bernard MD Work Phone: Start: 01-07-2025 Glucose measurement, blood Moe Bernard MD Work Phone: Start: 01-07-2025 End: 01-07-2025 Radex shoulder complete minimum 2 views Kasandra Radha Page [employer]S ANALYST-SHIPPING AND RECEIVING WEIGHER Work Phone: Start: 01-07-2025 Glucose measurement, blood Moe Bernard MD Work Phone: Start: 01-07-2025 Assay of magnesium Percy a Joaquin Hunjatin [employer]S ANALYST-SHIPPING AND RECEIVING WEIGHER Work Phone: Start: 01-07-2025 CBC AND ELECTRONIC DIFF Lilianakathy Jarrettn [employer]S ANALYST-SHIPPING AND RECEIVING WEIGHER Work Phone: Start: 01-07-2025 Complete blood count with white cell differential, automated Liliana L Hunn [employer] ANALYST-SHIPPING AND RECEIVING WEIGHER Work Phone: Start: 01-07-2025 Glucose measurement, blood Moe Bernard MD Work Phone: Start: 01-06-2025 Glucose measurement, blood Moe Bernard MD Work Phone: Start: 01-06-2025 Glucose measurement, blood Moe Bernard MD Work Phone: Start: 01-06-2025 Glucose measurement, blood Moe Bernard MD Work Phone: Start: 01-06-2025 Glucose measurement, blood Moe Bernard MD Work Phone: Start: 01-06-2025 Assay of magnesium Percy a L Hunn [employer]S ANALYST-SHIPPING AND RECEIVING WEIGHER Work Phone: Start: 01-06-2025 CBC AND ELECTRONIC DIFF Liliana L Hunn [employer]S ANALYST-SHIPPING AND RECEIVING WEIGHER Work Phone: Start: 01-06-2025 Complete blood count with white cell differential, automated Liliana L Hunn [employer]S ANALYST-SHIPPING AND RECEIVING WEIGHER Work Phone: Start: 01-06-2025 Glucose measurement, blood Moe Bernard MD Work Phone: Start: 01-06-2025 Mri brain brain stem w/o w/contrast material Bekah Ann [employer]S ANALYST[employer]SHIPPING AND RECEIVING WE[employer]HER Work Phone: Start: 01-05-2025 Glucose measurement, blood Moe Bernard MD Work Phone: Start: 01-05-2025 Glucose measurement, blood Moe Bernard MD Work Phone: Start: 01-05-2025 Angiotensin i-conver ting enzyme Eliecer Juanita Ye DO Work Phone: Start: 01-05-2025 Tb cell mediated ant ign respnse gamma interferon Eliecer R Ye DO Work Phone: Start: 01-05-2025 Glucose measurement, blood Moe Bernard MD Work Phone: Start: 01-05-2025 Assay of magnesium Percy a L Hunn [employer] ANALYST[employer]SHIPPING AND RECEIVING WEIGHER Work Phone: Start: 01-05-2025 CBC AND ELECTRONIC DIFF Liliana L Hunn [employer] ANALYST[employer]SHIPPING AND RECEIVING WEIGHER Work Phone: Start: 01-05-2025 Complete blood count with white cell differential, automated Liliana L Hunn [employer] ANALYST[employer]SHIPPING AND RECEIVING WE[employer]HER Work Phone: Start: 01-05-2025 Glucose measurement, blood Vanicoav N Bernard MD Work Phone: Start: 01-04-2025 Glucose measurement, blood Moe Bernard MD Work Phone: Start: 01-04-2025 Glucose measurement, blood Moe Bernard MD Work Phone: Start: 01-04-2025 PROCEDURE - LUMBAR PUNCTURE Kasandra Saenz [employer]S ANALYST[employer]SHIPPING AND RECEIVING WEIGHER Work Phone: Start: 01-04-2025 Cell count misc body fluids w/differential count Bekah E Sisinger [employer]S ANALYST-SHIPPING AND RECEIVING WEIGHER Work Phone: Start: 01-04-2025 Concentration infect ious agents Bekah E Sisinger [employer]S ANALYST-SHIPPING AND RECEIVING WEIGHER Work Phone: Start: 01-04-2025 Cytp concentration s subha & interpretation Bekah E Sisinger [employer]S ANALYST-SHIPPING AND RECEIVING WEIGHER Work Phone: Start: 01-04-2025 End: 01-04-2025 Glucose body fluid other than blood Bekah E Sisinger [employer]S ANALYST-SHIPPING AND RECEIVING WE[employer]HER Work Phone: Start: 01-04-2025 Glucose measurement, blood Moe Bernard MD Work Phone: Start: 01-04-2025 Ct head/brain w/o co ntrast material Bekah E Sisinger [employer]S ANALYST[employer]SHIPPING AND RECEIVING WEIGHER Work Phone: Start: 01-04-2025 Glucose measurement, blood Moe Bernard MD Work Phone: Start: 01-04-2025 Assay of magnesium Percy a L Hunn [employer]S ANALYST[employer]SHIPPING AND RECEIVING WEIGHER Work Phone: Start: 01-04-2025 CBC AND ELECTRONIC DIFF Liliana L Hunn [employer]S ANALYST-SHIPPING AND RECEIVING WEIGHER Work Phone: Start: 01-04-2025 Complete blood count with white cell differential, automated Liliana L Hunn [employer]S ANALYST-SHIPPING AND RECEIVING WEIGHER Work Phone: Start: 01-04-2025 Culture bacterial bl ood aerobic w/id isolates Bekah E Sisinger INSIGHTS ANALYST-SHIPPING AND RECEIVING WEIGHER Work Phone: Start: 01-04-2025 Glucose measurement, blood Wallace Lugo MD Work Phone: Start: 01-03-2025 Glucose measurement, blood Wallace Lugo MD Work Phone: Start: 01-03-2025 Glucose measurement, blood Wallace Lugo MD Work Phone: Start: 01-03-2025 Glucose measurement, blood Wallace Lugo MD Work Phone: Start: 01-03-2025 Glucose measurement, blood Wallace Lugo MD Work Phone: Start: 01-03-2025 Glucose measurement, blood Wallace Lugo MD Work Phone: Start: 01-03-2025 Assay of magnesium Percy a L Hunn [employer]S ANALYST[employer]SHIPPING AND RECEIVING WEIGHER Work Phone: Start: 01-03-2025 CBC AND ELECTRONIC DIFF Liliana L Hunn INSIGHTS ANALYST-SHIPPING AND RECEIVING WEIGHER Work Phone: Start: 01-03-2025 Complete blood count with white cell differential, automated Liliana L Hunn [employer]S ANALYST-SHIPPING AND RECEIVING WEIGHER Work Phone: Start: 01-03-2025 Culture bacterial bl ood aerobic w/id isolates Bekah Criselda Ann [employer]S ANALYST-SHIPPING AND RECEIVING WEIGHER Work Phone: Start: 01-03-2025 Glucose measurement, blood Wallace Lugo MD Work Phone: Start: 01-02-2025 Glucose measurement, blood Wallace Lugo MD Work Phone: Start: 01-02-2025 Glucose measurement, blood Wallace Lugo MD Work Phone: Start: 01-02-2025 Glucose measurement, blood Wallace Lugo MD Work Phone: Start: 01-02-2025 Culture bacterial bl ood aerobic w/id isolates Bekah Criselda Ann [employer]S ANALYST-SHIPPING AND RECEIVING WEIGHER Work Phone: Start: 01-02-2025 Glucose measurement, blood Wallace Lugo MD Work Phone: Start: 01-02-2025 Glucose measurement, blood Wallace Lugo MD Work Phone: Start: 01-02-2025 Assay of magnesium Percy Syed [employer]S ANALYST[employer]SHIPPING AND RECEIVING WEIGHER Work Phone: Start: 01-02-2025 CBC AND ELECTRONIC DIFF Liliana Syed [employer]S ANALYST-SHIPPING AND RECEIVING WEIGHER Work Phone: Start: 01-02-2025 Complete blood count with white cell differential, automated Liliana Joaquin Jarrettn [employer]S ANALYST[employer]SHIPPING AND RECEIVING WEIGHER Work Phone: Start: 01-02-2025 Ct abdomen & pelvis w/contrast material Sonia E Warner [employer]S ANALYST-SHIPPING AND RECEIVING WEIGHER Work Phone: Start: 01-02-2025 Ct thorax w/contrast material Sonia E Warner [employer]S ANALYST-SHIPPING AND RECEIVING WEIGHER Work Phone: Start: 01-01-2025 C-reactive protein Hadley n E Warner INSIGHTS ANALYST-SHIPPING AND RECEIVING WEIGHER Work Phone: Start: 01-01-2025 Sedimentation rate r bc automated Sonia E Warner [employer]S ANALYST-SHIPPING AND RECEIVING WEIGHER Work Phone: Start: 01-01-2025 Glucose measurement, blood Wallace Lugo MD Work Phone: Start: 01-01-2025 Glucose measurement, blood Wallace Lugo MD Work Phone: Start: 01-01-2025 Culture bacterial bl ood aerobic w/id isolates Bekah E Sisinger INSIGHTS ANALYST-SHIPPING AND RECEIVING WEIGHER Work Phone: Start: 01-01-2025 Glucose measurement, blood Wallace Lugo MD Work Phone: Start: 01-01-2025 Glucose measurement, blood Wallace Lugo MD Work Phone: Start: 01-01-2025 Glucose measurement, blood Wallace Lugo MD Work Phone: Start: 01-01-2025 CBC AND ELECTRONIC DIFF Liliana L Kolbyn [employer]S ANALYST-SHIPPING AND RECEIVING WEIGHER Work Phone: Start: 01-01-2025 Complete blood count with white cell differential, automated Liliana L Kolbyn [employer] ANALYST[employer]SHIPPING AND RECEIVING WE[employer]HER Work Phone: Start: 01-01-2025 Creatine kinase total M brandyn Page [employer]S ANALYST[employer]SHIPPING AND RECEIVING WEIGHER Work Phone: Start: 01-01-2025 End: 01-01-2025 Mri spinal canal cervical w/o & w/contr matrl Sonia Warner [employer]S ANALYST-SHIPPING AND RECEIVING WEIGHER Work Phone: Start: 12-31-2024 Radiologic exam ches t single view Sonia Warner [employer]S ANALYST-SHIPPING AND RECEIVING WEIGHER Work Phone: Start: 12-31-2024 Glucose measurement, blood Wallace Lugo MD Work Phone: Start: 12-31-2024 Glucose measurement, blood Wallace Lugo MD Work Phone: Start: 12-31-2024 Glucose measurement, blood Wallace Lugo MD Work Phone: Start: 12-31-2024 Glucose measurement, blood Wallace Lugo MD Work Phone: Start: 12-31-2024 Culture bacterial bl ood aerobic w/id isolates Sonia Warner [employer]S ANALYST[employer]SHIPPING AND RECEIVING WE[employer]HER Work Phone: Start: 12-31-2024 Glucose measurement, blood Wallace Lugo MD Work Phone: Start: 12-31-2024 Glucose measurement, blood Angelia MORGAN Work Phone: Start: 12-31-2024 Assay of magnesium Percy a L Kolbyn [employer]S ANALYST[employer]SHIPPING AND RECEIVING WEIGHER Work Phone: Start: 12-31-2024 CBC AND ELECTRONIC DIFF Liliana L Kolbyn [employer]S ANALYST[employer]SHIPPING AND RECEIVING WEIGHER Work Phone: Start: 12-31-2024 Complete blood count with white cell differential, automated Liliana Jarrettn [employer] ANALYST[employer]SHIPPING AND RECEIVING WE[employer]HER Work Phone: Start: 12-30-2024 Glucose measurement, blood Ragavendra R Baliga [facility] Work Phone: Start: 12-30-2024 Glucose measurement, blood Ragavendra R Baliga [facility] Work Phone: Start: 12-30-2024 BLOOD CULTURE IDENTIFICATION PANEL Kasandra Page [employer]S ANALYST[employer]SHIPPING AND RECEIVING WE[employer]HER Work Phone: Start: 12-30-2024 Culture bacterial bl ood aerobic w/id isolates Kasandra Garcia Camilo [employer]S ANALYST-SHIPPING AND RECEIVING WEIGHER Work Phone: Start: 12-30-2024 Glucose measurement, blood Ragavendra R Baliga [facility] Work Phone: Start: 12-30-2024 Glucose measurement, blood Jose C Abena DO Work Phone: Start: 12-30-2024 Assay of magnesium Percy a L Kolbyn [employer] ANALYST[employer]SHIPPING AND RECEIVING WE[employer]HER Work Phone: Start: 12-30-2024 CBC AND ELECTRONIC DIFF Lilianakathy Jarrettn [employer]S ANALYST[employer]SHIPPING AND RECEIVING WEIGHER Work Phone: Start: 12-30-2024 Complete blood count with white cell differential, automated Liliana L Kolbyn [employer] ANALYST[employer]SHIPPING AND RECEIVING WE[employer]HER Work Phone: Start: 12-29-2024 Glucose measurement, blood Jose C Abena DO Work Phone: Start: 12-29-2024 End: 12-29-2024 Glucose measurement, blood Jose C Jacquie rt DO Work Phone: Start: 12-29-2024 Removal implantable defib pulse generator only Noé Joseph MD Work Phone: Start: 12-29-2024 Glucose measurement, blood Jose C Abena DO Work Phone: Start: 12-29-2024 End: 12-29-2024 Cul bact xcpt urine blood/stool aerobic isol Carolina Diez MD Work Phone: Start: 12-29-2024 Glucose measurement, blood Jose C Abena DO Work Phone: Start: 12-29-2024 Glucose measurement, blood Jose C Abena DO Work Phone: Start: 12-29-2024 Assay of magnesium Percy a L Hunn [employer] ANALYST[employer]SHIPPING AND RECEIVING WE[employer]HER Work Phone: Start: 12-29-2024 CBC AND ELECTRONIC DIFF Liliana L Hunn [employer] ANALYST[employer]SHIPPING AND RECEIVING WEIGHER Work Phone: Start: 12-29-2024 Complete blood count with white cell differential, automated Liliana L Hunn [employer] ANALYST[employer]SHIPPING AND RECEIVING WE[employer]HER Work Phone: Start: 12-28-2024 Glucose measurement, blood Wallace Lugo MD Work Phone: Start: 12-28-2024 Glucose measurement, blood Wallace Lugo MD Work Phone: Start: 12-28-2024 Ct cervical spine w/contrast material Neelam A Saul PA-C Work Phone: Start: 12-28-2024 Ct thorax w/o contra st material Neelam A Saul PA-C Work Phone: Start: 12-28-2024 Glucose measurement, blood Wallace Lugo MD Work Phone: Start: 12-28-2024 Glucose measurement, blood Wallace Lugo MD Work Phone: Start: 12-28-2024 Glucose measurement, blood Wallace Lugo MD Work Phone: Start: 12-28-2024 Assay of magnesium Percy a L Hunn [employer] ANALYST[employer]SHIPPING AND RECEIVING WE[employer]HER Work Phone: Start: 12-28-2024 CBC AND ELECTRONIC DIFF Liliana L Hunn [employer] ANALYST-SHIPPING AND RECEIVING WEIGHER Work Phone: Start: 12-28-2024 Complete blood count with white cell differential, automated Liliana L Hunn [employer] ANALYST[employer]SHIPPING AND RECEIVING WE[employer]HER Work Phone: Start: 12-27-2024 Glucose measurement, blood Wallace Lugo MD Work Phone: Start: 12-27-2024 Glucose measurement, blood Wallace Lugo MD Work Phone: Start: 12-27-2024 Glucose measurement, blood Wallace Lugo MD Work Phone: Start: 12-27-2024 Glucose measurement, blood Wallace Lugo MD Work Phone: Start: 12-27-2024 Assay of magnesium Percy a L Hunn [employer] ANALYST[employer]SHIPPING AND RECEIVING WEIGHER Work Phone: Start: 12-27-2024 CBC AND ELECTRONIC DIFF Liliana L Hunn [employer] ANALYST-SHIPPING AND RECEIVING WEIGHER Work Phone: Start: 12-27-2024 Complete blood count with white cell differential, automated Liliana L Hunn [employer] ANALYST-SHIPPING AND RECEIVING WE[employer]HER Work Phone: Start: 12-26-2024 Glucose measurement, blood Wallace Lugo MD Work Phone: Start: 12-26-2024 Glucose measurement, blood Wallace Lugo MD Work Phone: Start: 12-26-2024 ABORH TYPE RECONFIRMATION Debby Ariza MD Work Phone: Start: 12-26-2024 Glucose measurement, blood Wallace Lugo MD Work Phone: Start: 12-26-2024 Glucose measurement, blood Wallace Lugo MD Work Phone: Start: 12-26-2024 Antibody screen WALLACE LUGO Comment on above: Performed By: #### X M ####[facility] ([facility])[address] [place] [address] Start: 12-26-2024 Assay of magnesium Percy a L Hunn [employer] ANALYST[employer]SHIPPING AND RECEIVING WE[employer]HER Work Phone: Start: 12-26-2024 Blood typing serologic abo Noé Joseph MD Work Phone: Start: 12-26-2024 CBC AND ELECTRONIC DIFF Liliana L Hunn [employer] ANALYST[employer]SHIPPING AND RECEIVING WE[employer]HER Work Phone: Start: 12-26-2024 Complete blood count with white cell differential, automated Liliana L Hunn [employer] ANALYST[employer]SHIPPING AND RECEIVING WE[employer]HER Work Phone: Start: 12-26-2024 PREPARE TO TRANSFUSE OR RED BLOOD CELLS Min Clemens MD Work Phone: Start: 12-25-2024 Glucose measurement, blood Wallace Lugo MD Work Phone: Start: 12-25-2024 Glucose measurement, blood Wallace Lugo MD Work Phone: Start: 12-25-2024 DEVICE EVALUATION (SCANNED) Other Other OT Start: 12-25-2024 Glucose measurement, blood Wallace Lugo MD Work Phone: Start: 12-25-2024 Echo transesophag r- t 2d w/prb img acquisj i&r Romelia L Bobbyiscelina [employer] ANALYST[employer]SHIPPING AND RECEIVING WE[employer]HER Work Phone: Start: 12-25-2024 Jakob LUGO Start: 12-25-2024 CBC AND ELECTRONIC DIFF Liliana L Hunn [employer] ANALYST[employer]SHIPPING AND RECEIVING WEIGHER Work Phone: Start: 12-25-2024 Complete blood count with white cell differential, automated Liliana L Hunn [employer] ANALYST[employer]SHIPPING AND RECEIVING WE[employer]HER Work Phone: Start: 12-25-2024 Glucose measurement, blood Wallace Lugo MD Work Phone: Start: 12-25-2024 Creatine kinase total J alma L Kniscelina [employer]S ANALYST-SHIPPING AND RECEIVING WEIGHER Work Phone: Start: 12-24-2024 Glucose measurement, blood Wallace Lugo MD Work Phone: Start: 12-24-2024 Glucose measurement, blood Wallace Lugo MD Work Phone: Start: 12-24-2024 Glucose measurement, blood Wallace Lugo MD Work Phone: Start: 12-24-2024 Echo tthrc r-t 2d w/wom-mode compl spec&colr d Liliana Syed [employer] ANALYST[employer]SHIPPING AND RECEIVING WE[employer]HER Work Phone: Start: 12-24-2024 Glucose measurement, blood Wallace Lugo MD Work Phone: Start: 12-24-2024 Assay of magnesium Percy Syed [employer] ANALYST[employer]SHIPPING AND RECEIVING WE[employer]HER Work Phone: Start: 12-24-2024 CBC AND ELECTRONIC DIFF Liliana Jarrettn [employer] ANALYST[employer]SHIPPING AND RECEIVING WE[employer]HER Work Phone: Start: 12-24-2024 Complete blood count with white cell differential, automated Liliana Joaquin Jarrettn [employer] ANALYST[employer]SHIPPING AND RECEIVING WE[employer]HER Work Phone: Start: 12-23-2024 End: 12-24-2024 Culture bacterial blood aerobic w/id isolates Liliana Jarrettn [employer] ANALYST[employer]SHIPPING AND RECEIVING WE[employer]HER Work Phone: Start: 12-23-2024 Radiologic exam ches t single view Liliana Jarrettn [employer] ANALYST[employer]SHIPPING AND RECEIVING WE[employer]HER Work Phone: Start: 12-23-2024 Bilirubin direct Liliana Syed [employer] A[employer]LYST[employer]SHIPPING AND RECEIVING WE[employer]HER Work Phone: Start: 12-23-2024 CBC AND ELECTRONIC DIFF Liliana Jarrettn [employer] ANALYST[employer]SHIPPING AND RECEIVING WE[employer]HER Work Phone: Start: 12-23-2024 Complete blood count with white cell differential, automated Lilianakathy Jarrettn [employer] A[employer]LYST[employer]SHIPPING AND RECEIVING WE[employer]HER Work Phone: Start: 12-23-2024 Lipid panel Liliana Garcia nn [employer] ANALYST[employer]SHIPPING AND RECEIVING WE[employer]HER Work Phone: Start: 12-23-[address] Tonie Peñaloza MD Work Phone: Start: 12-22-[address] Tonie Peñaloza MD Work Phone: Start: 12-22-2024 Blood count smear mc rscp w/mnl difrntl wbc count Dr. Lisseth ePñaloza MD Work Phone: Start: 12-22-[address] Lisseth Peñaloza MD Work Phone: Start: 12-22-2024 Mean corpuscular hemoglobin concentration determination Dr. Lisseth Peñaloza MD Work Phone: Start: 12-22-2024 Nucleated red blood cell count procedure Dr. Lisseth Peñaloza MD Work Phone: Start: 12-22-2024 Platelet mean volume determination Dr. Lisseth Peñaloza MD Work Phone: Start: 12-21-[address] Lisseth Peñaloza MD Work Phone: Start: 12-21-[address] Tonie Peñaloza MD Work Phone: Start: 12-21-2024 Gram stain microscopy D zamzam Peñaloza MD Work Phone: Start: 12-21-2024 Identification proce dure for living organism Dr. Lisseth Peñaloza MD Work Phone: Start: 12-21-2024 End: 12-21-2024 Microbial culture, routine Dr. Lisseth conrad MD Work Phone: Start: 12-20-[address] Nadia PEREZ Work Phone: Start: 12-20-2024 CT of lumbar spine Dr. Lisseth Peñaloza MD Work Phone: Start: 12-20-2024 Computed tomography of abdomen and pelvis with intravenous contrast Dr. Lisseth Peñaloza MD Work Phone: Start: 12-20-2024 Urine microscopy: re d cells Dr. Lisseth Peñaloza MD Work Phone: Start: 12-20-2024 Urnls dip stick/tabl et reagent auto microscopy Dr. Lisseth Peñaloza MD Work Phone: Start: 12-20-2024 Plain chest X-ray Dr. Hans Peñaloza MD Work Phone: Start: 12-20-2024 Blood count smear mc rscp w/mnl difrntl wbc count Dr. Lisseth Peñaloza MD Work Phone: Start: 12-20-2024 Calculation of international normalized ratio Dr. Lisseth Peñaloza MD Work Phone: Start: 12-20-[address] Lisseth Peñaloza MD Work Phone: Start: 12-20-2024 Mean corpuscular hemoglobin concentration determination Dr. Lisseth Peñaloza MD Work Phone: Start: 12-20-2024 Nucleated red blood cell count procedure Dr. Lisseth Peñaloza MD Work Phone: Start: 12-20-2024 Platelet mean volume determination Dr. Lisseth Peñaloza MD Work Phone: Start: 12-20-[address] Tonie Peñaloza MD Work Phone: Start: 12-20-2024 Identification proce dure for living organism Dr. Lisseth Peñaloza MD Work Phone: Start: 12-20-[address] Tonie Peñaloza MD Work Phone: Start: 12-15-2024 Mean corpuscular hemoglobin concentration determination [...] Start: 01-22-2023 Hemoglobin A1c/Hemoglobin.total in Blood Jay Arden DO Work Phone: Start: 05-04-2022 Ther behav svc, per 15 min Janice Zuniga Start: 05-01-2022 Ther behav svc, per 15 min Janice Efrain Start: 05-01-2022 Follow-up visit Follow-up ALFREDO OLIVEIRA Start: 04-27-2022 Ther behav svc, per 15 min Janice Efrain Start: 04-25-2022 Ther behav svc, per 15 min Janice Efrian Start: 04-20-2022 Basic metabolic pane l calcium [...] Janice Efrain Start: 03-22-2022 Ultrasonography of liver SAND BUFFER Ha Rivas Work Phone: Start: 03-21-2022 Ther behav svc, [...] Polysom 6/>yrs sleep w/cpap 4/> addl karen attnd Vlad Alaniz MD Work Phone: Start: 11-22-2021 Ther [...] w/le ast 12 lds w/i&r Abbey Oliveira SHIPPING AND RECEIVING WEIGHER Work Phone: Start: 10-10-2021 Ther behav svc, [...] Janice Efrain Start: 08-21-2021 Ostectomy calcaneus ASA SANTOS NIX DPM Work Phone: Start: 08-21-2021 Repair [...] Efrain Start: 12-19-2020 Antibody screen Ha Rivas CONSUMER INSIGHT MANAGER Work Phone: Start: 12-15-2020 Ther behav svc, [...] 10-13-2020 Debridement nail any method 6/> SLY David BOYD DPM Work Phone: Start: 10-13-2020 Ther behav svc, per 15 min Janice Efrain Start: 10-07-2020 12 lead ECG Milka Concepcion Rodriguez Work Phone: Start: 09-08-2020 3 comp [...] Provider Start: 08-21-2019 12 lead ECG Milka Javier carmen Tree Work Phone: Start: 08-18-2019 CBC WITH AUTO DIFF (EXTERNAL) Unspecified Provider Start: 08-18-2019 Comprehensive metabo lic 2000 panel Unspecified Provider Start: 08-18-2019 Adult depression scr eening assessment Ha Rivas Start: 07-28-2019 Adult depression scr eening assessment Keshiaruth ann Sterling Start: 06-01-2019 3 comp foot exam [...] dfb Shawanda Keane PA-C Work Phone: Start: 10-28-2014 End: 10-28-2014 Prgrmg eval implantable in person multi lead dfb Jean Trujillo MD Start: 07-28-2014 End: 07-28-2014 Prgrmg eval implantable in prsn dual lead dfb Jean Trujillo MD Start: 04-26-2014 End: 04-26-2014 Prgrmg eval implantable in person multi lead dfb Evan Roberts MD Start: 03-16-2014 End: 03-16-2014 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 PA-C Work Phone: Start: 03-16-2014 [...] months Shanell Mooney Start: 11-26-2013 End: 11-26-2013 MMM Jean Trujillo MD Start: 10-21-2013 End: 02-26-2014 [...] Jean Trujillo MD Start: 08-21-2013 End: 08-21-2013 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 Jean Trujillo MD Start: 08-21-2013 End: 08-21-2013 Follow Up Appt 3 months Shanell Mooney Start: 06-18-2013 End: 06-18-2013 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 PA-C Work Phone: Start: 06-18-2013 End: 02-26-2014 Echocardiography Shawanda Keane PA-C Work Phone: Start: 06-18-2013 End: 06-18-2013 Follow Up Appt 2 months Shawanda alejandre PA-C Work Phone: Start: 05-06-2013 End: 05-06-2013 *BMP Jean Trujillo MD Start: 05-06-2013 End: 02-26-2014 *Hepatic Function Panel [place] S Ronnie, M D Start: 05-06-2013 End: 06-09-2013 Follow Up Appt 6 weeks Jean Trujillo MD Start: 05-06-2013 End: 05-06-2013 MMM Jean Trujillo MD Screening for malign ant neoplasm of cervix Z12.4 - Encounter for screening for malignant neoplasm of cervix No Primary Care Physician Plan of Treatment Date Care Activity Detail Author Start: 04-30-2032 Tetanus vaccination [facility] Start: 04-30-2032 Urine microalbumin profile [facility] Start: 2031 Pneumococcal Vaccine: Ped or At-Risk (2 of 2 - PPSV23) Pneumococcal Vaccine: Ped or At-Risk (2 of 2 - PPSV23) [facility] Start: 12-23-2029 Lipid panel [facility] Start: 04-22-2029 Administration of diphtheria + tetanus + acellular pertussis vaccine DTAP/TDAP/TD VACCINE (2 - Td or Tdap) [facility] Start: 04-22-2029 Diphtheria + pertussis + tetanus vaccine (product) DTAP/TDAP/TD VACCINE (2 - Td or Tdap) [facility] Start: 04-22-2029 Tetanus vaccination [facility] Start: 04-22-2029 Tetanus, diphtheria and acellular pertussis vaccination TDAP/TD ADULT [facility] Start: 01-11-2026 Finding of potassium level (finding) [facility] Start: 02-25-2025 BP Controlled (<130/80) BP Controlled (<130/80) [facility] Start: 01-28-2025 BP Controlled (<130/80) BP Controlled (<130/80) [facility] Start: 01-28-2025 Depression Screening Depression Screening [facility] Start: 01-19-2025 Iv infusion therapy/prophylaxis /dx 1st to 1 hr [facility] Start: 01-12-2025 Iv infusion therapy/prophylaxis /dx 1st to 1 hr [facility] Start: 12-23-2024 Patient discharge [facility] Start: 12-23-2024 Annual PCP Team Chronic Disease Visit Annual PCP Team Chronic Disease Visit [facility] Start: 12-23-2024 BP Controlled (<130/80) BP Controlled (<130/80) [facility] Start: 12-23-2024 End: 12-23-2024 [facility] Start: 12-22-2024 End: 12-22-2024 [facility] Start: 12-21-2024 [facility] Start: 12-21-2024 [facility] Start: 12-21-2024 Blood culture [facility] Start: 12-21-2024 Microbial culture, routine [facility] Start: 12-21-2024 Source specific culture [facility] Start: 12-21-2024 End: 12-21-2024 [facility] Start: 12-20-2024 Following clinical pathway protocol [facility] Start: 12-20-2024 Assessment of risk of venous thromboembolism [facility] Start: 12-20-2024 Care regimes management [facility] Start: 12-20-2024 Consultation [facility] Start: 12-20-2024 Fall prevention [facility] Start: 12-20-2024 Inhalation therapy procedure [facility] Start: 12-20-2024 Insertion of catheter into peripheral vein [facility] Start: 12-20-2024 Introduction of urinary catheter [facility] Start: 12-20-2024 Measuring intake and output [facility] Start: 12-20-2024 Notification of physician [facility] Start: 12-20-2024 Oxygen therapy [facility] Start: 12-20-2024 End: 12-20-2024 Peripherally inserted central catheter care [facility] Start: 12-20-2024 Providing care according to standard [facility] Start: 12-20-2024 Provision of activity privileges [facility] Start: 12-20-2024 Referral to occupational therapist [facility] Start: 12-20-2024 Referral to service [facility] Start: 12-20-2024 End: 12-20-2024 [facility] Start: 12-20-2024 Computed tomography of abdomen and pelvis with intravenous contrast [facility] Start: 12-20-2024 CT Abdomen and Pelvis W contrast IV [facility] Start: 12-20-2024 Verification routine [facility] Start: 12-20-2024 Admission procedure [facility] Start: 12-20-2024 Hospital admission, emergency, from emergency room, medical nature [facility] Start: 12-20-2024 [facility] Start: 12-20-2024 End: 12-20-2024 [facility] Start: 11-28-2024 [facility] Start: 11-26-2024 Patient discharge [facility] Start: 11-26-2024 Referral to service [facility] Start: 11-23-2024 Blood culture [facility] Start: 11-23-2024 [facility] Start: 11-23-2024 Consultation [facility] Start: 11-21-2024 [facility] Start: 11-21-2024 End: 11-21-2024 [facility] Start: 11-20-2024 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 [facility] Start: 11-20-2024 Following clinical pathway protocol [facility] Start: 11-20-2024 Assessment of risk of venous thromboembolism [facility] Start: 11-20-2024 Care regimes management [facility] Start: 11-20-2024 Catheterization of vein [facility] Start: 11-20-2024 Consultation [facility] Start: 11-20-2024 Elevation of head of bed [facility] Start: 11-20-2024 Insertion of catheter into peripheral vein [facility] Start: 11-20-2024 Measuring intake and output [facility] Start: 11-20-2024 Notification of physician [facility] Start: 11-20-2024 Providing care according to standard [facility] Start: 11-20-2024 Referral to occupational therapist [facility] Start: 11-20-2024 Referral to service [facility] Start: 11-20-2024 Vital signs measurements [facility] Start: 11-20-2024 End: 11-20-2024 [facility] Start: 11-20-2024 Admission procedure [facility] Start: 11-20-2024 Verification routine [facility] Start: 11-20-2024 Hospital admission, emergency, from emergency room, medical nature [facility] Start: 11-20-2024 End: 11-20-2024 [facility] Start: 11-20-2024 Bacteria identified in Blood by Culture Blood Culture [facility] Start: 11-20-2024 Bacteria identified in Urine by Culture Urine Culture [facility] Start: 11-20-2024 Inhalation therapy procedure [facility] Start: 11-20-2024 Patient referral to dietitian [facility] Start: 11-13-2024 BP Controlled (<130/80) BP Controlled (<130/80) [facility] Start: 11-07-2024 End: 11-07-2024 [facility] Start: 09-11-2024 BP Controlled (<130/80) BP Controlled (<130/80) [facility] Start: 09-07-2024 Patient referral [facility] Work Phone: Start: 08-30-2024 Annual PCP Team Chronic Disease Visit Annual PCP Team Chronic Disease Visit [facility] Start: 08-30-2024 BP Controlled (<130/80) BP Controlled (<130/80) [facility] Start: 08-30-2024 Diabetic foot examination Diabetic Foot Exam [facility] Start: 08-17-2024 Screening for malignant neoplasm of colon [facility] Start: 08-05-2024 Patient referral [facility] Work Phone: Start: 05-20-2024 Annual PCP Team Chronic Disease Visit Annual PCP Team Chronic Disease Visit [facility] Start: 05-20-2024 BP Controlled (<130/80) BP Controlled (<130/80) [facility] Start: 04-30-2024 Hemoglobin A1c measurement HbA1C [facility] Start: 04-28-2024 End: 04-28-2024 Patient encounter procedure 04/28/2024 8:00 AM EDT Procedure [facility] [address] [place] [address] ICD/SV [facility] Comment on above: ICD/SV Start: 04-14-2024 End: 04-14-2024 Patient encounter procedure 04/14/2024 10:40 AM EDT Office Visit [facility] [address] [facility] [place] [address] Williams Rubin MD [address] [place] [address] Annual wellness [facility] Comment on above: Annual wellness Start: 04-08-2024 End: 07-08-2024 Basic metabolic 2000 panel - Serum or Plasma BASIC METABOLIC PANEL Lab Routine Medication management Expected: 04/08/2024, Expires: 07/08/2024 [facility] Work Phone: Comment on above: Expected: 04/08/2024, Expires: Start: 04-08-2024 End: 07-08-2024 Lipid 1996 panel - Serum or Plasma LIPID PANEL BASIC Lab Routine Medication management Expected: 04/08/2024, Expires: 07/08/2024 [facility] Comment on above: Expected: 04/08/2024, Expires: Start: 04-05-2024 Glaucoma screening Dilated Retinal Exam [facility] Start: 04-05-2024 Hepatitis C antibody, confirmatory test Dilated Retinal Exam [facility] Start: 04-03-2024 End: 04-03-2024 Patient encounter procedure 04/03/2024 11:00 AM EDT Procedure [facility] [place] [address] bivicd/bsci/sv [facility] Comment on above: bivicd/bsci/sv Start: 04-02-2024 End: 04-02-2024 Patient encounter procedure 04/02/2024 2:20 PM EDT Office Visit [facility] [address] [place] [address] Cfm, Pharm D [facility] [address] [place] [address] Follow up in 4 weeks [facility] Comment on above: Follow up in 4 weeks Start: 03-29-2024 Annual PCP Team Chronic Disease Visit Annual PCP Team Chronic Disease Visit [facility] Start: 03-25-2024 Hemoglobin A1c measurement HbA1C [facility] Start: 03-15-2024 ANNUAL PCP TEAM CHRONIC DISEASE VISIT ANNUAL PCP TEAM CHRONIC DISEASE VISIT [facility] Start: 03-15-2024 Covid-19 Vaccine ( season) Covid-19 Vaccine ( season) [facility] Start: 03-15-2024 Influenza vaccination Influenza Vaccine (#1) [facility] Start: 03-15-2024 [facility] Start: 03-10-2024 End: 06-09-2024 Basic metabolic 2000 panel - Serum or Plasma BASIC METABOLIC PANEL Lab Routine Medication monitoring encounter Expected: 03/10/2024, Expires: 06/09/2024 [facility] Work Phone: Comment on above: Expected: 03/10/2024, Expires: Start: 03-10-2024 End: 06-09-2024 Lipid 1996 panel - Serum or Plasma LIPID PANEL BASIC Lab Routine Medication monitoring encounter Expected: 03/10/2024, Expires: 06/09/2024 [facility] Comment on above: Expected: 03/10/2024, Expires: Start: 03-07-2024 End: 06-06-2024 Basic metabolic 2000 panel - Serum or Plasma BASIC METABOLIC PANEL Lab Routine Medication management Expected: 03/07/2024, Expires: 06/06/2024 [facility] Work Phone: Comment on above: Expected: 03/07/2024, Expires: Start: 03-03-2024 End: 03-03-2024 Patient encounter procedure 03/03/2024 4:00 PM EDT Procedure [facility] [address] [place] [address] bivicd/bsci/sv [facility] Comment on above: bivicd/bsci/sv Start: 03-01-2024 3 comp foot exam completed DIABETIC FOOT EXAM [facility] Start: 03-01-2024 ANNUAL PCP TEAM CHRONIC DISEASE VISIT ANNUAL PCP TEAM CHRONIC DISEASE VISIT [facility] Start: 03-01-2024 Diabetic foot examination Diabetic Foot Exam [facility] Start: 02-26-2024 End: 05-27-2024 Lipid 1996 panel - Serum or Plasma LIPID PANEL BASIC Lab Routine Type 2 diabetes mellitus with diabetic neuropathy, with long-term current use of insulin (HCC) Expected: 02/26/2024, Expires: 05/27/2024 [facility] Work Phone: Comment on above: Expected: 02/26/2024, Expires: Start: 02-26-2024 End: 05-27-2024 Microalbumin/Creatinine [Mass Ratio] in Urine ALBUMIN/CREATININE RATIO, URINE Lab Routine Type 2 diabetes mellitus with diabetic neuropathy, with long-term current use of insulin (HCC) Expected: 02/26/2024, Expires: 05/27/2024 [facility] Comment on above: Expected: 02/26/2024, Expires: Start: 02-26-2024 End: 02-26-2024 Patient encounter procedure 02/26/2024 2:00 PM EDT [facility] [address] [place] [address] Cfm, Pharm D [facility] [address] [place] [address] 3-4 weeks, telephone is fine [facility] Comment on above: 3-4 weeks, telephone is fine Start: 01-30-2024 End: 01-30-2024 Patient encounter procedure [facility] Comment on above: 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 APPT TO [facility] W f/u in 1 year with Naomi Wheeler 1 year f/uEKGl ss Start: 01-29-2024 End: 01-29-2024 Patient encounter procedure 01/29/2024 11:20 AM EDT Office Visit [facility] [address] [facility] [place] [place] [address] Cfm, Pharm D [facility] [address] [place] [address] 4 week follow up for DM [facility] Comment on above: 4 week follow up for DM Start: 01-26-2024 Hepatitis B screening URINE ALBUMIN:CREATININE RATIO [facility] Start: 01-26-2024 Hepatitis B surface antibody level LDL CHOLESTEROL [facility] Start: 01-23-2024 ANNUAL PCP TEAM CHRONIC DISEASE VISIT ANNUAL PCP TEAM CHRONIC DISEASE VISIT [facility] Start: 01-23-2024 BP CONTROLLED (<130/80) BP CONTROLLED (<130/80) [facility] Start: 12-24-2023 End: 12-24-2023 Patient encounter procedure [facility] Comment on above: Follow up Start: 12-05-2023 End: 03-05-2024 Hemoglobin A1c in Blood HEMOGLOBIN A1C Lab Routine Type 2 diabetes mellitus with diabetic neuropathy, with long-term current use of insulin (HCC) Expected: 12/05/2023, Expires: 03/05/2024 [facility] Work Phone: Comment on above: Expected: 12/05/2023, Expires: Start: 12-05-2023 End: 12-05-2023 Patient encounter procedure [facility] Comment on above: Follow up in 3 weeks Start: 11-28-2023 Hemoglobin A1c measurement HbA1C [facility] Start: 11-14-2023 End: 11-14-2023 Patient encounter procedure 11/14/2023 1:20 PM EDT Office Visit [facility] 1 [place] [address] Cfm, Pharm D Clinic 1 [place] [address] 15 day follow up . Mickey pulido MA [facility] Comment on above: 15 day follow up . Mickey pulido MA Start: 10-06-2023 [facility] Start: 08-20-2023 Hemoglobin A1c measurement HbA1C [facility] Start: 08-20-2023 Hemoglobin A1c/Hemoglobin.total in Blood HbA1C [facility] Start: 08-19-2023 Covid-19 Vaccine () Covid-19 Vaccine () [facility] Start: 07-15-2023 Behavioral Health Screening Behavioral Health Screening [facility] Start: 07-15-2023 Depression Assessment Depression Assessment [facility] Start: 05-14-2023 Hepatitis C antibody, confirmatory test Dilated Retinal Exam [facility] Comment on above: Postponed from 11/15/2018 (Postponed To Appropriate Date) Start: 05-01-2023 End: 07-31-2023 Hemoglobin A1c in Blood HGB A1C Lab Routine Type 2 diabetes mellitus with diabetic neuropathy, with long-term current use of insulin (HCC) Expected: 05/01/2023, Expires: 07/31/2023 [facility] Work Phone: Comment on above: Expected: 05/01/2023, Expires: Start: 04-24-2023 Hemoglobin A1c/Hemoglobin.total in Blood HBA1C [facility] Start: 03-15-2023 Covid-19 Vaccine () Covid-19 Vaccine () [facility] Start: 03-15-2023 Influenza vaccination [facility] Start: 02-05-2023 End: 04-07-2023 Lipid 1996 panel - Serum or Plasma LIPID PANEL BASIC Lab Routine Type 2 diabetes mellitus with diabetic neuropathy, with long-term current use of insulin (HCC) Essential hypertension, benign Expected: 02/05/2023 (Approximate), Expires: 04/07/2023 [facility] Work Phone: Comment on above: Expected: 02/05/2023 (Approximate), Expi res: 04/07/2023 Start: 01-28-2023 Encounter for problem Vlad [facility]iz [facility], [facility] Work Phone: Start: 01-23-2023 Depression screening using PHQ-9 (Patient Health Questionnaire 9) score DEPRESSION SCREENING [facility] Start: 01-23-2023 Diabetic foot examination FOOT EXAM [facility] Start: 01-23-2023 Urine screening for protein [facility] Start: 01-22-2023 End: 03-24-2023 ALBUMIN/CREAT RATIO RND UR ALBUMIN/CREAT RATIO RND UR Lab Routine Type 2 diabetes mellitus with diabetic neuropathy, with long-term current use of insulin (HCC) Expected: 01/22/2023, Expires: 03/24/2023 [facility] Work Phone: Comment on above: Expected: 01/22/2023, Expires: Start: 01-22-2023 End: 03-24-2023 CBC W Auto Differential panel - Blood CBC + DIFF Lab Routine Type 2 diabetes mellitus with diabetic neuropathy, with long-term current use of insulin (HCC) Essential hypertension, benign Expected: 01/22/2023, Expires: 03/24/2023 [facility] Work Phone: Comment on above: Expected: 01/22/2023, Expires: 3 Start: 01-22-2023 End: 03-24-2023 Comprehensive metabolic 2000 panel - Serum or Plasma COMP METABOLIC PANEL Lab Routine Type 2 diabetes mellitus with diabetic neuropathy, with long-term current use of insulin (HCC) Essential hypertension, benign Expected: 01/22/2023, Expires: 03/24/2023 [facility] Work Phone: Comment on above: Expected: 01/22/2023, Expires: 3 Start: 01-22-2023 End: 03-24-2023 HIV 1+2 Ab [Presence] in Serum or Plasma by Immunoassay HIV 1 2 COMBO(AG/AB),WITH REFLEX TO DIFFERENTIATION Lab Routine Screening for HIV (human immunodeficiency virus) Expected: 01/22/2023, Expires: 03/24/2023 [facility] Work Phone: Comment on above: Expected: 01/22/2023, Expires: 3 Start: 01-22-2023 End: 03-24-2023 Magnesium [Mass/volume] in Serum or Plasma MAGNESIUM BLD Lab Routine Essential hypertension, benign Expected: 01/22/2023, Expires: 03/24/2023 [facility] Work Phone: Comment on above: Expected: 01/22/2023, Expires: 3 Start: 01-22-2023 End: 03-24-2023 Thyrotropin [Units/volume] in Serum or Plasma TSH BLD Lab Routine Obesity, Class II, BMI 35-39.9 Expected: 01/22/2023, Expires: 03/24/2023 [facility] Work Phone: Comment on above: Expected: 01/22/2023, Expires: 3 Start: 01-22-2023 End: 03-24-2023 Thyroxine (T4) free [Mass/volume] in Serum or Plasma T4 FREE/FREE THYROX Lab Routine Obesity, Class II, BMI 35-39.9 Expected: 01/22/2023, Expires: 03/24/2023 [facility] Work Phone: Comment on above: Expected: 01/22/2023, Expires: Start: 09-19-2022 End: 09-19-[address] [facility] Start: 09-06-2022 Depression screening using PHQ-9 (Patient Health Questionnaire 9) score DEPRESSION SCREENING [facility] Start: 08-31-2022 ANNUAL WELLNESS VISIT ANNUAL WELLNESS VISIT [facility] Start: 08-30-2022 History and physical examination, annual for health maintenance Wellness Visit [facility] Start: 07-26-2022 Hemoglobin A1c measurement A1C [facility] Start: 07-15-2022 DEPRESSION ASSESSMENT DEPRESSION ASSESSMENT [facility] Start: 05-07-2022 End: 05-07-2022 Patient encounter procedure 05/07/2022 Appointment Cardiology [facility] Start: 05-02-2022 COVID-19 Vaccine (5 - Booster for Moderna series) COVID-19 Vaccine (5 - Booster for Moderna series) [facility] Start: 05-02-2022 COVID-19 VACCINE (5 - Moderna series) COVID-19 VACCINE (5 - Moderna series) [facility] Start: 04-25-2022 Hemoglobin A1c measurement HEMOGLOBIN A1C [facility] Start: 04-23-2022 End: 04-23-2022 Patient encounter procedure 04/23/2022 Office Visit Cardiology Milka Rodriguez MD [address] [place], [place] [id number] [facility] Start: 04-20-2022 End: 04-20-2022 Patient encounter procedure 04/20/2022 Office Visit Cardiology Abbey Oliveira CNP [address] [place] [address] [facility] Start: 04-03-2022 Encounter for problem Fina Lemos Work Phone: Start: 03-15-2022 Influenza vaccination Sequential Influenza Vaccine (#1) [facility] Start: 03-15-2022 Influenza vaccination given INFLUENZA VACCINE (#1) [facility] Start: 03-08-2022 End: 03-08-2022 Patient encounter procedure 03/08/2022 Office Visit Endocrinology Dave Phan MD [address] [address] [facility] Start: 03-07-2022 End: 03-07-2022 Patient encounter procedure 03/07/2022 Office Visit Family Medicine Ha Rivas APRN [employer]OR ADJUSTER-C [address] [place] [address] [facility] Start: 02-12-2022 Influenza vaccination Flu vaccine (#1) [facility] Start: 01-25-2022 Encounter for problem Vlad Alaniz MD, [facility] Work Phone: Start: 01-11-2022 Encounter for problem Gisselle LemosP. M. Work Phone: Start: 12-12-2021 Encounter for problem Gisselle LemosP. Shanell. Work Phone: Start: 11-24-2021 COVID-19 VACCINE (4 - Booster for Moderna series) COVID-19 VACCINE (4 - Booster for Moderna series) [facility] Start: 11-16-2021 End: 11-16-2021 Patient encounter procedure 11/16/2021 Office Visit Mikaela Mcdowell, [facility] Start: 11-13-2021 Hemoglobin A1c measurement [facility] Start: 10-31-2021 End: 10-31-2021 ambulatory 10/31/2021 PaceArt Device Check Cardiology [facility] Start: 10-24-2021 End: 10-24-2021 Telemedicine consultation with patient 10/24/2021 Telemedicine Family Medicine Ha Rivas APRN [employer]C [address] [place] [address] [facility] Start: 10-23-2021 End: 10-23-2021 Patient encounter procedure 10/23/2021 Appointment Cardiology Nick Branch MD [address] [facility] [address] [place] [address] [facility] Start: 10-09-2021 Sly Nix D.P.M. Work Phone: Start: 09-27-2021 Colonoscopy COLONOSCOPY [facility] Start: 09-27-2021 COLORECTAL CANCER SCREENING COLORECTAL CANCER SCREENING [facility] Start: 09-27-2021 Screening for malignant neoplasm of colon [facility] Start: 09-08-2021 Albumin DL <= 20 mg/L (U) [Mass/Vol] Urine Microalbumin [facility] Start: 09-08-2021 Diabetic foot examination FOOT EXAM [facility] Start: 09-08-2021 Lipid panel LIPIDS [facility] Start: 09-08-2021 Microalbumin measurement, urine, quantitative Urine Microalbumin [facility] Start: 09-08-2021 Renal function test NOS RENAL PROFILE [facility] Start: 09-08-2021 Urine screening for protein MICROALBUMINURIA [facility] Start: 07-27-2021 Encounter for problem Fina Lemos. Work Phone: Start: 06-13-2021 Encounter for problem Fina Lemos Work Phone: Start: 06-05-2021 Encounter for problem Fina Lemos. Work Phone: Start: 04-04-2021 End: 04-04-2021 Patient encounter procedure 04/04/2021 Appointment Cardiology Nick Branch MD [address] [facility] [address] [place] [address] [facility] Start: 03-15-2021 Influenza vaccination [facility] Start: 02-12-2021 Ophthalmic examination and evaluation OPHTHALMOLOGY EXAM [facility] Start: 12-25-2020 End: 12-25-2020 Appointment 12/25/2020 Appointment Cardiology [facility] Start: 11-29-2020 Albumin DL <= 20 mg/L (U) [Mass/Vol] Urine Microalbumin [facility] Start: 10-26-2020 COVID-19 Vaccine (2 - Moderna 2-dose series) COVID-19 Vaccine (2 - Moderna 2-dose series) [facility] Start: 09-15-2020 End: 09-15-2020 Appointment 09/15/2020 Appointment Cardiology [facility] Start: 08-18-2020 Adult depression screening assessment DEPRESSION SCREENING [facility] Start: 08-11-2020 End: 08-11-2020 Office Visit 08/11/2020 Office Visit Cardiology Abbey Oliveira, [employer] [address] [place] [address] [phone] [facility] Start: 08-02-2020 End: 08-02-2020 Office Visit 08/02/2020 Office Visit Obstetrics and Gynecology Keshia Sterling APRN CNM [address] [place] [address] [phone] [facility] Start: 07-28-2020 Adult depression screening assessment DEPRESSION SCREENING [facility] Start: 07-28-2020 ANNUAL WELLNESS VISIT ANNUAL WELLNESS VISIT [facility] Start: 06-07-2020 End: 06-07-2020 Appointment 06/07/2020 Appointment Cardiology [facility] Start: 06-01-2020 Diabetic foot examination FOOT EXAM [facility] Start: 05-28-2020 Screening mammography MAMMOGRAM [facility] Start: 05-08-2020 Lipid panel LIPIDS [facility] Start: 05-08-2020 Renal function test NOS RENAL PROFILE [facility] Start: 04-01-2020 End: 04-01-2020 Appointment 04/01/2020 Appointment Cardiology [facility] Start: 03-29-2020 End: 03-29-2020 Office Visit 03/29/2020 Office Visit Cardiology [facility] Start: 03-15-2020 Influenza vaccination given Sequential Influenza Vaccine (#1) [facility] Start: 02-24-2020 Hepatitis B screening URINE ALBUMIN:CREATININE RATIO [facility] Start: 12-29-2019 End: 12-29-2019 Office Visit 12/29/2019 Office Visit Cardiology [facility] Start: 12-22-2019 End: 12-22-2019 PaceArt Device Check 12/22/2019 PaceArt Device Check Cardiology [facility] Start: 12-14-2019 Ophthalmic examination and evaluation OPHTHALMOLOGY EXAM [facility] Start: 11-17-2019 End: 11-17-2019 Office Visit 11/17/2019 Office Visit Cardiology [facility] Start: 10-07-2019 End: 10-07-2019 PaceArt Device Check 10/07/2019 PaceArt Device Check Cardiology [facility] Start: 09-01-2019 HbA1c (Bld) [Mass fraction] HEMOGLOBIN A1C [facility] Start: 09-01-2019 End: 09-01-2019 Office Visit 09/01/2019 Office Visit Family Medicine Ha Rivas APRN MOTOR [employer]-C [address] [place] [address] [facility] Start: 07-21-2019 Hepatitis B surface antibody level LDL CHOLESTEROL [facility] Start: 07-01-2019 Hepatitis B vaccination HEPATITIS B VACCINE (ADULT) (#2) [facility] Start: 12-03-2018 Mammography [facility] Start: 12-03-2018 Screening for malignant neoplasm of breast [facility] Start: 11-15-2018 Hepatitis C antibody, confirmatory test DILATED RETINAL EXAM [facility] Start: 10-23-2018 3 comp foot exam completed DIABETIC FOOT EXAM [facility] Start: 09-27-2017 Screening for malignant neoplasm of colon [facility] Start: 09-09-2017 End: 09-09-2017 Appointment Appointment [facility] Work Phone: Start: 06-11-2017 End: 06-11-2017 Magnesium *Magnesium [facility] Work Phone: Start: 11-27-2016 End: 11-27-2016 *CMP Complete Metabolic Panel *CMP Complete Metabolic Panel [facility] Work Phone: Start: 11-27-2016 End: 11-27-2016 Hemoglobin A1c/Hemoglobin.total mass fraction (Bld) *HgA1C [facility] Work Phone: Start: 11-27-2016 End: 11-27-2016 Lipid panel [AGGREGATE] *Lipid Profile [facility] Work Phone: Start: 09-17-2016 Colonoscopy [facility] Start: 09-17-2016 Screening for malignant neoplasm of colon COLORECTAL CANCER SCREENING [facility] Start: 09-04-2016 End: 09-04-2016 *CMP Complete Metabolic Panel *CMP Complete Metabolic Panel [facility] Work Phone: Start: 09-04-2016 End: 09-04-2016 *Microalbumin, Creatine Ratio, rand urine *Microalbumin, Creatine Ratio, rand urine [facility] Work Phone: Start: 09-04-2016 End: 09-07-2016 1,25-Dihydroxyvitamin D [Mass/volume] in Serum or Plasma *[id number] Vitamin D, 1, 25- DiHydroxy [facility] Work Phone: Start: 09-04-2016 End: 09-08-2016 [employer] [facility], [address] [place], [address] [facility] Work Phone: Start: 09-04-2016 End: 09-04-2016 Hemoglobin A1c/Hemoglobin.total mass fraction (Bld) *HgA1C [facility] Work Phone: Start: 09-04-2016 End: 09-04-2016 Lipid panel [AGGREGATE] *Lipid Profile [facility] Work Phone: Start: 09-04-2016 End: 09-04-2016 Thyroid stimulating hormone (TSH) *TSH [facility] Work Phone: Start: 2016 Administration of herpes zoster vaccine Zoster Vaccines (1 of 2) [facility] Start: 2016 Screening for malignant neoplasm of colon [facility] Start: 2016 SHINGLES VACCINE (1 of 2) SHINGLES VACCINE (1 of 2) [facility] Start: 2016 SHINGRIX VACCINE (1 of 2) SHINGRIX VACCINE (1 of 2) [facility] Start: 05-10-2015 End: 05-10-2015 Follow Up Appt 3 months Follow Up Appt 3 months [facility] Work Phone: Start: 05-10-2015 End: 05-10-2015 [facility] Work Phone: Start: 01-31-2015 End: 01-31-2015 Follow Up Appt 3 months Follow Up Appt 3 months [facility] Work Phone: Start: 01-31-2015 End: 01-31-2015 [facility] Work Phone: Start: 11-09-2014 End: 08-03-2014 *Hepatic Function Panel *Hepatic Function Panel [facility] Work Phone: Start: 11-09-2014 End: 08-03-2014 Lipid panel [AGGREGATE] *Lipid Profile CC PCP [facility] Work Phone: Start: 10-28-2014 End: 10-28-2014 Follow Up Appt 3 months Follow Up Appt 3 months [facility] Work Phone: Start: 10-28-2014 End: 10-28-2014 [facility] Work Phone: Start: 07-28-2014 End: 07-28-2014 Follow Up Appt 3 months Follow Up Appt 3 months [facility] Work Phone: Start: 07-28-2014 End: 07-28-2014 [facility] Work Phone: Start: 04-26-2014 End: 04-26-2014 Follow Up Appt 3 months Follow Up Appt 3 months [facility] Work Phone: Start: 04-26-2014 End: 04-26-2014 [facility] Work Phone: Start: 03-31-2014 Screening for malignant neoplasm of colon Fecal occult blood test (FOBT,FIT) [facility] Start: 03-30-2014 FECAL OCCULT BLOOD FECAL OCCULT BLOOD [facility] Start: 03-30-2014 Screening for malignant neoplasm of colon Fecal Occult Blood [facility] Start: 03-16-2014 End: 03-16-2014 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[facility] Work Phone: Start: 03-16-2014 End: 03-16-2014 Ecg routine ecg w/least 12 lds w/i&r EKG (In office) [facility] Work Phone: Start: 03-16-2014 End: 03-16-2014 Follow Up Appt 4 months Follow Up Appt 4 months [facility] Work Phone: Start: 01-22-2014 End: 02-26-2014 Follow Up Appt 3 months Follow Up Appt 3 months [facility] Work Phone: Start: 01-22-2014 End: 02-26-2014 [facility] Work Phone: Start: 11-26-2013 End: 11-26-2013 Follow Up Appt 3 months Follow Up Appt 3 months [facility] Work Phone: Start: 11-26-2013 End: 11-26-2013 MMM MMM [facility] Work Phone: Start: 10-21-2013 End: 02-26-2014 Follow Up Appt 3 months Follow Up Appt 3 months [facility] Work Phone: Start: 10-21-2013 End: 02-26-2014 [facility] Work Phone: Start: 09-10-2013 End: 02-26-2014 Follow Up Appt 1 month Follow Up Appt 1 month [facility] Work Phone: Start: 09-10-2013 End: 02-26-2014 [facility] Work Phone: Start: 08-21-2013 End: 08-21-2013 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 Work Phone: Start: 08-21-2013 End: 08-21-2013 Follow Up Appt 3 months Follow Up Appt 3 months [facility] Work Phone: Start: 07-15-2013 Pneumococcal Vaccine: Ped or At-Risk (2 - PCV) Pneumococcal Vaccine: Ped or At-Risk (2 - PCV) [facility] Start: 07-15-2013 Pneumococcal Vaccine: Ped or At-Risk (2 of 2 - PCV) Pneumococcal Vaccine: Ped or At-Risk (2 of 2 - PCV) [facility] Start: 06-18-2013 End: 06-18-2013 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[facility] Work Phone: Start: 06-18-2013 End: 02-26-2014 Echocardiography Echocardiogram (limited) [facility] Work Phone: Start: 06-18-2013 End: 06-18-2013 Follow Up Appt 2 months Follow Up Appt 2 months [facility] Work Phone: Start: 05-06-2013 End: 05-06-2013 *BMP *BMP [facility] Work Phone: Start: 05-06-2013 End: 02-26-2014 *Hepatic Function Panel *Hepatic Function Panel [facility] Work Phone: Start: 05-06-2013 End: 06-09-2013 Follow Up Appt 6 weeks Follow Up Appt 6 weeks [facility] Work Phone: Start: 05-06-2013 End: 05-06-2013 MMM MMM [facility] Work Phone: Start: 03-21-2013 PNEUMOCOCCAL (2 - PCV) PNEUMOCOCCAL (2 - PCV) [facility] Start: 2011 COLOGUARD (FIT-DNA) COLOGUARD (FIT-DNA) [facility] Start: [address] COLONOGRAPHY [facility] Start: 2011 Screening for malignant neoplasm of colon [facility] Start: 2011 SIGMOIDOSCOPY SIGMOIDOSCOPY [facility] Start: 2006 Screening for malignant neoplasm of breast Mammogram [facility] Start: 2006 Screening mammography Mammogram [facility] Start: 1987 Screening for malignant neoplasm of cervix [facility] Start: 1985 DTaP/Tdap/Td vaccine (1 - Tdap) DTaP/Tdap/Td vaccine (1 - Tdap) [facility] Start: 1985 Hepatitis B vaccination [facility] Start: 1985 Hepatitis B Vaccine (1 of 3 - 19+ 3-dose series) Hepatitis B Vaccine (1 of 3 - 19+ 3-dose series) [facility] Start: 1985 Urine microalbumin profile DTAP,TDAP,TD (1 - Tdap) [facility] Start: 1984 BP CONTROLLED (<130/80) BP CONTROLLED (<130/80) [facility] Start: 1984 Hepatitis C antibody, confirmatory test Hepatitis C Screening [facility] Start: 1984 Hepatitis C screening Hepatitis C Screening [facility] Start: 1984 HIV SCREENING HIV SCREENING [facility] Start: 1984 WELLNESS ANNUAL VISIT WELLNESS ANNUAL VISIT [facility] Start: 1982 COVID-19 Vaccine (1 of 2) COVID-19 Vaccine (1 of 2) [facility] Start: 1981 HIV screening [facility] Start: 1976 Albumin DL <= 20 mg/L (U) [Mass/Vol] URINE MICROALBUMIN [facility] Start: 1976 Diabetic foot examination [facility] Start: 1976 Glaucoma screening [facility] Start: 1976 Ophthalmic examination and evaluation Ophthalmology Exam [facility] Start: 1972 Pneumococcal Vaccine: Ped or At-Risk (1 of 2 - PPSV23) Pneumococcal Vaccine: Ped or At-Risk (1 of 2 - PPSV23) [facility] Start: 1969 History and physical examination, annual for health maintenance Wellness Visit [facility] Start: 01-11-1967 COVID-19 Vaccine (#1) COVID-19 Vaccine (#1) [facility] Start: 1966 HbA1c (Bld) [Mass fraction] A1C [facility] Start: 1966 Hemoglobin A1c measurement A1C [facility] Start: 1966 HEPATITIS B (1 of 3 - 3-dose series) HEPATITIS B (1 of 3 - 3-dose series) [facility] Start: 1966 Hepatitis B Vaccine (1 of 3 - 3-dose series) Hepatitis B Vaccine (1 of 3 - 3-dose series) [facility] Start: 1966 Hepatitis C screening [facility] Start: 1966 Nephropathy screening MICROALBUMINURIA [facility] Start: 1966 Screening for malignant neoplasm of cervix PAP SMEAR [facility] Start: 1966 Screening for malignant neoplasm of colon [facility] Start: 1966 Screening mammography Mammogram [facility] End: 04-09-2023 Alanine aminotransferase [Enzymatic activity/volume] in Serum or Plasma ALT Lab Routine Nonischemic cardiomyopathy (HCC) Benign essential HTN HFrEF (heart failure with reduced ejection fraction) (HCC) 1 Occurrences starting 04/09/2022 until 04/09/2023 [facility] Comment on above: 1 Occurrences starting 04/09/2022 until 04/09/2023 End: 04-09-2023 Aspartate aminotransferase [Enzymatic activity/volume] in Serum or Plasma AST Lab Routine Nonischemic cardiomyopathy (HCC) Benign essential HTN HFrEF (heart failure with reduced ejection fraction) (HCC) 1 Occurrences starting 04/09/2022 until 04/09/2023 [facility] Comment on above: 1 Occurrences starting 04/09/2022 until 04/09/2023 Bacteria identified in Unspecified specimen by Anaerobe culture [facility] End: 12-14-2020 Basic metabolic 2000 panel Basic metabolic panel Lab Routine MCKNIGHT (dyspnea on exertion) 1 Occurrences starting 12/15/2019 until 12/14/2020 [facility] Comment on above: 1 Occurrences starting 12/15/2019 until 12/14/2020 End: 07-29-2021 Basic metabolic 2000 panel Basic metabolic panel Lab Routine Benign essential HTN 1 Occurrences starting 07/29/2020 until 07/29/2021 [facility] Comment on above: 1 Occurrences starting 07/29/2020 until 07/29/2021 End: 04-09-2023 Basic metabolic 2000 panel - Serum or Plasma Basic Metabolic Panel Lab Routine Nonischemic cardiomyopathy (HCC) Benign essential HTN HFrEF (heart failure with reduced ejection fraction) (HCC) 1 Occurrences starting 04/09/2022 until 04/09/2023 [facility] Work Phone: Comment on above: 1 Occurrences starting 04/09/2022 until 04/09/2023 Basic metabolic 2008 panel with ionized calcium - Serum or Plasma [facility] CBC W Auto Different ial panel - Blood [facility] End: 08-17-2020 CBC with Differential CBC with Differential Lab Routine Pre-operative clearance 1 Occurrences starting 08/18/2019 until 08/17/2020 [facility] Comment on above: 1 Occurrences starting 08/18/2019 until 08/17/2020 End: 08-28-2020 Chlamydia trachomatis+Neisseria gonorrhoeae rRNA [Presence] in Cervix by Probe GC & Chlamydia Amplified Probe Microbiology Routine Screen for STD (sexually transmitted disease) 1 Occurrences starting 07/28/2019 until 08/28/2020 [facility] Comment on above: 1 Occurrences starting 07/28/2019 until 08/28/2020 Comprehensive metabo lic 2000 panel - Serum or Plasma [facility] End: 08-17-2020 Comprehensive metabolic panel aka [place] Comprehensive metabolic panel aka [place] Lab Routine Pre-operative clearance 1 Occurrences starting 08/18/2019 until 08/17/2020 [facility] Comment on above: 1 Occurrences starting 08/18/2019 until 08/17/2020 End: 10-20-2020 Contrast echocardiography Echocardiogram complete w contrast Echocardiography Routine Nonischemic cardiomyopathy (HCC) MCKNIGHT (dyspnea on exertion) 1 Occurrences starting 08/21/2019 until 10/20/2020 [facility] Comment on above: 1 Occurrences starting 08/21/2019 until 10/20/2020 End: 02-27-2025 DBT Breast - bilateral screening SALEEM SCREENING [facility] Radiology Routine Encounter for screening mammogram for breast cancer 1 Occurrences starting 01/29/2024 until 02/27/2025 [facility] Work Phone: Comment on above: 1 Occurrences starting 01/29/2024 until 02/27/2025 End: 12-29-2024 ECHOCARDIOGRAM TRANSESOPHAGEAL (KANDY) IN OR - IMAGES [facility] End: 01-30-2024 Echocardiography ECHO Cardiology Routine NICM (nonischemic cardiomyopathy) (HCC) 1 Occurrences starting 01/29/2023 until 01/30/2024 [facility] Work Phone: Comment on above: 1 Occurrences starting 01/29/2023 until 01/30/2024 Erythrocyte sedimentation rate [facility] Im adm prq id subq/i m njxs 1 vaccine IMADM PRQ ID SUBQ/IM NJXS 1 VACC Immunization/Injection Routine Encounter for immunization Ordered: 03/15/2023 [facility] Work Phone: Comment on above: Ordered: 03/15/2023 End: 12-24-2024 [facility]actic [facility] Lipid 1996 panel - S farrah or Plasma [facility] End: 12-14-2020 Magnesium [Mass/Vol] Magnesium Lab Routine MCKNIGHT (dyspnea on exertion) 1 Occurrences starting 12/15/2019 until 12/14/2020 [facility] Comment on above: 1 Occurrences starting 12/15/2019 until 12/14/2020 End: 07-29-2021 Magnesium [Mass/Vol] Magnesium Lab Routine Benign essential HTN 1 Occurrences starting 07/29/2020 until 07/29/2021 [facility] Comment on above: 1 Occurrences starting 07/29/2020 until 07/29/2021 End: 04-09-2023 Magnesium [Mass/volume] in Serum or Plasma Magnesium Level Lab Routine Nonischemic cardiomyopathy (HCC) Benign essential HTN HFrEF (heart failure with reduced ejection fraction) (HCC) 1 Occurrences starting 04/09/2022 until 04/09/2023 [facility] Comment on above: 1 Occurrences starting 04/09/2022 until 04/09/2023 End: 02-21-2024 SALEEM SCREENING SALEEM SCREENING Radiology Routine Encounter for screening mammogram for breast cancer 1 Occurrences starting 01/22/2023 until 02/21/2024 [facility] Work Phone: Comment on above: 1 Occurrences starting 01/22/2023 until 02/21/2024 MG Breast - bilatera l Screening [facility] Mycobacterium sp identified in Unspecified specimen by Organism specific culture [facility] End: 04-09-2023 Natriuretic peptide.B prohormone N-Terminal [Mass/volume] in Serum or Plasma NT Pro BNP Lab Routine Nonischemic cardiomyopathy (HCC) Benign essential HTN HFrEF (heart failure with reduced ejection fraction) (HCC) 1 Occurrences starting 04/09/2022 until 04/09/2023 [facility] Comment on above: 1 Occurrences starting 04/09/2022 until 04/09/2023 End: 12-28-2020 Nocturnal pulse oximetry Nocturnal pulse oximetry Sleep Center Routine PAXTON (obstructive sleep apnea) 1 Occurrences starting 12/29/2019 until 12/28/2020 [facility] Comment on above: 1 Occurrences starting 12/29/2019 until 12/28/2020 Patient Education Juan leger [facility] Work Phone: Patient referral Katrin steiner [facility] Work Phone: POCT rack urine POCT rack urine Point of Care Testing Routine Pre-operative clearance Ordered: 08/18/2019 [facility] Comment on above: Ordered: 08/18/2019 Recommendations Sly Nix D.P.M. Work Phone: End: 10-29-2024 Screening colonoscopy COLONOSCOPY SCREENING Endoscopy Routine Screening for colon cancer 1 Occurrences starting 10/30/2023 until 10/29/2024 [facility] Work Phone: Comment on above: 1 Occurrences starting 10/30/2023 until 10/29/2024 Standard ECG EKG Order ECG Ro utine Pre-operative clearance Ordered: 08/18/2019 [facility] Comment on above: Ordered: 08/18/2019 End: 10-10-2021 Thyroid Peroxidase Antibody (TPO Ab) [facility] Work Phone: Comment on above: 1 Occurrences starting 10/10/2021 until 10/10/2021 End: 10-10-2021 THYROID STIMULATING IMMUNOGLOBULIN (TSI) [facility] Comment on above: 1 Occurrences starting 10/10/2021 until 10/10/2021 End: 08-28-2020 Trichomonas Amplified Probe Trichomonas Amplified Probe Microbiology Routine Screen for STD (sexually transmitted disease) 1 Occurrences starting 07/28/2019 until 08/28/2020 [facility] Comment on above: 1 Occurrences starting 07/28/2019 until 08/28/2020 End: 10-10-2021 TSH RECEPTOR ANTIBODY [facility] Comment on above: 1 Occurrences starting 10/10/2021 until 10/10/2021 [facility] End: 09-15-2020 XR Chest PA and lateral upright XR Chest PA and lat Imaging Routine Pre-operative clearance 1 Occurrences starting 08/18/2019 until 09/15/2020 [facility] Comment on above: 1 Occurrences starting 08/18/2019 until 09/15/2020 [facility] Immunizations Immunization Date Immunization Notes Care Provider Fa cility 08-05-2024 influenza, injectabl e, madin teodora canine kidney, preservative free No Primary Care Physician [facility] 08-05-2024 Influenza, injectabl e, Madin Valentine Canine Kidney, preservative free, quadrivalent No Primary Care Physician [facility] 06-24-2023 COVID-19 original vaccine, booster dose, monovalent (MODERNA) Williams Rubin MD Work Phone: [facility] Work Phone: 05-30-2023 Pfizer Covid-19 (Comirnaty) No Primary Care Physician [facility] 05-20-2023 influenza, injectabl e, quadrivalent, contains preservative Williams Rubin MD Work Phone: [facility] 05-20-2023 influenza, injectabl e, quadrivalent, preservative free No Primary Care Physician [facility] 05-20-2023 influenza virus vaccine, unspecified formulation Pharm Cfm [facility] 03-15-2023 pneumococcal Conjuga te, unspecified formulation Manny Shields MD Work Phone: [facility] Work Phone: 03-15-2023 pneumococcal (PCV20) vaccine, 20 valent (PREVNAR 20) Manny Shields MD Work Phone: [facility] 04-30-2022 tetanus toxoid, redu suzette diphtheria toxoid, and acellular pertussis vaccine, adsorbed SAND BUFFER Ha Rivas Work Phone: [place] [address]-24-2022 Covid (Moderna) No Primary C are Physician [facility] 01-23-2022 HEMOGLOBIN A1C Dave Phan MD Work Phone: [facility] 08-16-2021 HEMOGLOBIN A1C Dave Phan MD Work Phone: [facility] 07-27-2021 Moderna Covid-19 Vaccine Dave Phan MD Work Phone: [facility] 05-16-2021 influenza, injectabl e, quadrivalent, preservative free No Primary Care Physician [facility] 05-16-2021 influenza, seasonal, injectable Dave Phan MD Work Phone: [facility] 05-16-2021 influenza virus vaccine, unspecified formulation Dave Phan MD Work Phone: [facility] 10-26-2020 Moderna Covid-19 Vaccine Dave Phan MD Work Phone: [facility] 09-28-2020 Moderna Covid-19 Vaccine Dave Phan MD Work Phone: [facility] 09-08-2020 influenza, injectabl e, quadrivalent, preservative free No Primary Care Physician [facility] 09-08-2020 influenza, seasonal, injectable Dave Phan MD Work Phone: [facility] 05-03-2020 zoster vaccine recombinant Dave Phan MD Work Phone: [facility] 03-30-2020 zoster vaccine recombinant Dave Phan MD Work Phone: [facility] 12-29-2019 zoster vaccine recombinant Dave Phan MD Work Phone: [facility] 06-01-2019 HEMOGLOBIN A1C Keshia [facility] 04-22-2019 influenza, injectabl e, quadrivalent, preservative free No Primary Care Physician [facility] 04-22-2019 influenza, seasonal, injectable Keshia [facility] 04-22-2019 tetanus toxoid, redu suzette diphtheria toxoid, and acellular pertussis vaccine, adsorbed Keshia Sterling [facility] 05-26-2018 influenza, injectabl e, quadrivalent, contains preservative Dave Phan MD Work Phone: [facility] 05-26-2018 influenza, injectabl e, quadrivalent, preservative free No Primary Care Physician [facility] 04-14-2017 Influenza virus vaccine [facility] 04-14-2017 influenza, seasonal, injectable Dave Phan MD Work Phone: [facility] 04-14-2017 influenza, seasonal, injectable, preservative free Dave Phan MD Work Phone: [facility] 03-28-2017 influenza, injectabl e, quadrivalent, contains preservative Dave Phan MD Work Phone: [facility] 03-28-2017 influenza, injectabl e, quadrivalent, preservative free No Primary Care Physician [facility] 05-11-2016 influenza, injectabl e, quadrivalent, contains preservative Dave Phan MD Work Phone: [facility] 05-11-2016 influenza, injectabl e, quadrivalent, preservative free No Primary Care Physician [facility] 06-20-2015 influenza, injectabl e, quadrivalent, contains preservative Ronny Wheeler MD Work Phone: [facility] 06-20-2015 influenza, injectabl e, quadrivalent, preservative free No Primary Care Physician [facility] 06-20-2015 influenza, seasonal, injectable Dave Phan MD Work Phone: [facility] 06-21-2014 influenza, injectabl e, quadrivalent, preservative free No Primary Care Physician [facility] 06-21-2014 influenza, seasonal, injectable Dave Phan MD Work Phone: [facility] 10-26-2013 TD(adult) unspecifie d formulation Dave Phan MD Work Phone: [facility] 04-30-2013 influenza virus vaccine, unspecified formulation Ronny Wheeler MD Work Phone: [facility] Work Phone: 07-15-2012 pneumococcal polysaccharide vaccine, 23 valjeb Phan MD Work Phone: [facility] 04-14-2012 pneumococcal polysaccharide vaccine, 23 valjeb Phan MD Work Phone: [facility] Work Phone: 04-14-2012 pneumococcal vaccine , unspecified formulation [facility] 03-21-2012 pneumococcal polysaccharide vaccine, 23 valjeb Phan MD Work Phone: [facility] 04-14-2011 influenza virus vaccine, unspecified formulation Ronny Wheeler MD Work Phone: [facility] 05-23-2009 novel [id number], live virus for nasal administration Dave Phan MD Work Phone: [facility] Payers Date Payer Category Payer Managed Care (unspecified) [id number] 2024 Self-pay [id number] 2023 Unknown NATALI HURST HI X [id number] 2023-Present [phone] [address] [address] [place] [address] HMO [id number] 2023 Unknown [id number] 2022 Medicaid [id number] 2021 Private Health Insurance [facility] [id number] 2021-Present [phone] [address] [place] [address] Medicaid [id number] 2019 Medicaid [id number] .[id number] 2019 Medicaid [id number]. 1.13.385.2 .[id number] 2019 Private Health Insurance xxxxxxxxx [id number] .7.3.924858.315 2014 Private Health Insurance [id number] 1966 Unknown [id number] 2.16.840.1.171074.3.579.2 .651 1966 Unknown [id number] 2.16.840.1.727195.3.579.2 .204 1966 Unknown [id number] 2.16.840.1.672219.3.579.2 .900 1966 Unknown [id number] 2.16.840.1.533948.3.579.2 .900 1966 Unknown [id number] 2.16.840.1.453440.3.579.2 .900 1966 Unknown [id number] 2.16.840.1.299505.3.579.2 .900 1966 Unknown [id number] 2.16.840.1.001655.3.579.2 .297 1966 Unknown [id number] 2.16.840.1.449091.3.579.2 .297 1966 Unknown [id number] 2.16.840.1.627616.3.579.2 .297 1966 Unknown [id number] 2.16.840.1.866751.3.579.2 .297 1966 Unknown [id number] 2.16.840.1.001254.3.579.2 .297 1966 Unknown [id number] 2.16.840.1.607888.3.579.2 .297 1966 Unknown [id number] 2.16.840.1.079555.3.579.2 .297 1966 Unknown [id number] 2.16.840.1.962481.3.579.2 .297 1966 Unknown [id number] 2.16.840.1.333972.3.579.2 .297 1966 Unknown [id number] 2.16.840.1.872476.3.579.2 .297 1966 Unknown [id number] 2.16.840.1.491839.3.579.2 .903 1966 Unknown [id number] 2.16.840.1.988569.3.579.2 .903 1966 Unknown [id number] 2.840.1.051698.3.579.2 .903 1966 Unknown [id number] 2.16.840.1.551025.3.579.2 .903 1966 Unknown [id number] 2.840.1.641484.3.579.2 .903 1966 Unknown [id number] 2.16840.1.824757.3.579.2 .594 Medicaid [facility]ICAID [facility] Effective for all dates [address] [place] [address] Medicaid xxxxxxxxxxxx 1.2.840.083835.1.13.248.2 .7.3.528253.315 Unknown [id number] 2.16.840.1.110821.3.579.2 .443 Unknown [id number] 2.16.840.1.456668.3.579.2 .443 Unknown [id number] 2.16.840.1.900191.3.579.2 .443 Unknown [id number] 2.16840.1.897714.3.579.2 .443 Unknown [id number] 2.16.840.1.187246.3.579.2 .443 Unknown [id number] 2.840.1.605811.3.579.2 .443 Unknown [id number] 2.16.840.1.656462.3.579.2 .443 Unknown [id number] 2.840.1.453789.3.579.2 .443 Unknown [id number] Unknown [id number] 2.840.1.729090.3.579.2 .462 Unknown [id number] 2.840.1.639641.3.579.2 .462 Unknown [id number] 2.840.1.422650.3.579.2 .462 Unknown [id number] 2.840.1.624951.3.579.2 .462 Unknown [id number] 2.840.1.258027.3.579.2 .462 Unknown [id number] 2.840.1.929789.3.579.2 .462 Unknown [id number] 2.840.1.753850.3.579.2 .462 Unknown [id number] 2.840.1.561944.3.579.2 .462 Unknown [id number] 2.840.1.129657.3.579.2 .462 Unknown [id number] 2.840.1.119599.3.579.2 .462 Unknown [id number] 2.840.1.830360.3.579.2 .462 Unknown [id number] 2.16.840.1.986109.3.579.2 .462 Unknown [id number] 2.16.840.1.836610.3.579.2 .462 Unknown [id number] 2.840.1.457615.3.579.2 .462 Unknown [id number] 2.840.1.685896.3.579.2 .462 Unknown [id number] .840.1.465497.3.579.2 .462 Unknown [id number] 2.840.1.305490.3.579.2 .462 Unknown [id number] 2.840.1.885753.3.579.2 .462 Unknown [id number] 2.840.1.762172.3.579.2 .462 Unknown [id number] .840.1.500628.3.579.2 .462 Unknown [id number] 2.840.1.047694.3.579.2 .462 Unknown [id number] 2.840.1.500628.3.579.2 .462 Unknown [id number] .840.1.269895.3.579.2 .462 Unknown [id number] .840.1.381751.3.579.2 .462 Unknown [id number] 840.1.976067.3.579.2 .462 Unknown [id number] 840.1.249775.3.579.2 .462 Unknown [id number] 840.1.545078.3.579.2 .462 Unknown [id number] .840.1.283184.3.579.2 .462 Unknown [id number] .840.1.165920.3.579.2 .462 Unknown [id number] 2.840.1.903701.3.579.2 .462 Unknown [id number] 2.840.1.617836.3.579.2 .462 Unknown [id number] 2.840.1.877677.3.579.2 .462 Unknown [id number] 2.16.840.1.286388.3.579.2 .462 Unknown [id number] 2.16.840.1.180065.3.579.2 .462 Unknown [id number] 2.16.840.1.525783.3.579.2 .462 Unknown [id number] 2.16.840.1.654382.3.579.2 .462 Unknown [id number] 2.16.840.1.232663.3.579.2 .462 Unknown [id number] 2.16.840.1.025340.3.579.2 .462 Unknown [id number] 2.16.840.1.165613.3.579.2 .462 Unknown [id number] 2.16.840.1.704689.3.579.2 .462 Unknown [id number] 2.16.840.1.497111.3.579.2 .462 Unknown [id number] 2.16.840.1.775190.3.579.2 .462 Unknown [id number] 2.16.840.1.286707.3.579.2 .462 Unknown [id number] 2.16.840.1.349191.3.579.2 .462 Unknown [id number] 2.16.840.1.814630.3.579.2 .462 Unknown [id number] 2.16.840.1.110414.3.579.2 .462 Unknown [id number] 2.16.840.1.708164.3.579.2 .462 Unknown [id number] 2.16840.1.439948.3.579.2 .462 Unknown [id number] 2.16.840.1.062791.3.579.2 .462 Social History Date Type Detail Facility Start: 07-28-2019 End: 12-20-2024 Tobacco smoking status KYIS Never smoker [facility] Start: 07-28-2019 End: 01-23-2022 Alcohol intake Current drinker of alcohol (finding) [facility] Start: 04-22-2019 End: 05-16-2021 History SDOH Alcohol Frequency 1 [facility] Start: 07-28-2019 Alcohol Comment rare [facility] Start: 1965 Sex Assigned At Not on file [facility] Start: 08-21-2019 End: 05-01-2022 Alcohol intake Ex-drinker (finding) [facility] Start: 10-03-2021 End: 04-09-2022 Exposure to SARS-CoV-2 (event) Not sure [facility] Start: 12-01-2010 End: 12-29-2019 Tobacco use and exposure Never used [facility] Start: 1965 End: 12-24-2024 Sex Assigned At Naomi Lemos.P. M. Work Phone: Alcohol intake Denies alcohol use Gisselle LemosP.M. Work Phone: Details of drug misu se behavior Denies Drug Use Naomi Lemos.P.M. Work Phone: Start: 02-06-2021 History SDOH Social Connections Phone 5 [facility] Start: 05-16-2021 History SDOH Social Connections Membership 2 [facility] Start: 02-06-2021 History SDOH Stress 3 [facility] Start: 04-30-2022 End: 10-06-2023 Tobacco smoking status NHIS Tobacco smoking consumption unknown [facility] Start: 08-10-2021 Never Smoker [facility] Work Phone: Start: 08-10-2021 No [facility] Work Phone: Start: 09-01-2019 Beer;Wine;Liquor [facility] Work Phone: Start: 1965 Sex Assigned At Female [facility] Start: 05-01-2022 End: 12-24-2024 History of Social function [facility] Start: 08-21-2019 Gender identity Identifies as female gender (finding) [facility] Start: 08-21-2019 Sexual orientation Heterosexual (finding) [facility] Start: 01-22-2023 End: 01-01-2025 Alcohol intake Current non-drinker of alcohol (finding) [facility] Adult Depression Screening Assessment 0 [facility] Start: 03-21-2012 Alcohol Comment seldom [facility] (I/We) worried wheth er (my/our) food would run out before (I/we) got money to buy more. Never true [facility] Has the [employer], or [facility] threatened to shut off services in your home in past 12Mo No [facility] Are you now , , , , never or living with a partner? [facility] How often to you hav e a drink containing alcohol? Never [facility] How hard is it for y ou to pay for the very basics like food, housing, medical care, and heating Somewhat hard [facility] Do you feel stress - tense, restless, nervous, or anxious, or unable to sleep at night because your mind is troubled all the time - these days [OSQ] To some extent [facility] (I/We) worried wheth er (my/our) food would run out before (I/we) got money to buy more. Sometimes true [facility] Start: 11-07-2017 Rare [facility] Start: 11-07-2017 None [facility] Start: 11-07-2017 - [facility] Start: 11-08-2017 Non-smoker [facility] Start: 08-24-2013 Sex Female (finding) [facility] Medical Equipment Procedure Code Equipment Code Equipment Origin al Text Equipment Identifier Dates Implant [id number]) [id number] Start: 07-04-2015 End: 08-30-2023 Comment on above: Use one needle per d ose. 1 per day. Test blood sugar(s) 3 times daily. USE TO TEST BLOOD CALZADA GAR THREE TIMES A DAY Use 5 needles per do se. 5 per day for her insulin. by Does not appl y route. [id number] 1 each by Does n ot apply route 4 times daily. [id number] Start: 05-04-2019 1 each by Does n ot apply route 4 times daily. [id number] Start: 08-03-2019 Biomet Sport G15 0 [employer] Project Manager-D [id number]_[facility] Start: 03-11-2018 Biomet Sport 029 2 [place] 4-Site Sg [id number] Start: 09-02-2013 Gdt 4135 Dextrus [id number] Start: 09-02-2013 Gdt 4542 Easytra k 2 Is-1, 80 Cm [id number] Start: 09-02-2013 TEST BLOOD SUGAR 1 TO 3 TIMES A DAY [id number] Start: 05-18-2021 USE TO GIVE INSULIN 4 TIMES A DAY [id number] Start: 05-18-2021 1 each by Does n ot apply route 4 times daily. [id number] Start: 09-14-2021 Biomet Spo 0292 Endotak [place] 4-[place] [id number] Start: 09-02-2013 USE TO GIVE INSULIN 4 TIMES A DAY [id number] Start: 10-26-2021 1 each by Does n ot apply route 4 times daily. [id number] Start: 12-21-2021 Blood Sugar Diagnostic (Onetouch Ultra [...] 08-18-2018 Pen Needle, Diabetic (Comfort Ez Pen Lackey) 32 gauge x 5/32 needle Start: 03-24-2018 End: 08-18-2018 USE TO TEST BLOO D SUGAR THREE TIMES A DAY [id number] Start: 03-05-2023 Use 5 needles pe r dose. 5 per day for her insulin. [id number] Start: 08-30-2023 Icd-N140 Energen [id number] Start: 09-03-2013 Blood Sugar Diagnostic [...] 05-29-2024 Pen Needle, Diabetic (Comfort Ez Pen Lackey) 32 gauge x 5/32 needle Start: 03-24-2018 End: 08-18-2018 [id number] Start: 12-29-2024 [id number] Start: 09-03-2013 [id number] Start: 12-29-2024 [id number] Start: 09-03-2013 [id number] Start: 12-29-2024 [id number] Start: 09-03-2013 [id number] Start: 12-29-2024 [id number] Start: 09-03-2013 Goals Date Patient Goal Desired Activity /State Personal health goal Functional Status Date Assessment Result Facility 12-24-2024 Are you deaf, or do you have serious difficulty hearing No [facility] 12-24-2024 Are you blind, or do you have serious difficulty seeing, even when wearing glasses [facility] 12-24-2024 Do you have serious difficulty walking or climbing stairs No [facility] 12-24-2024 Do you have difficul ty dressing or bathing No [facility] 12-24-2024 Because of a physica l, mental, or emotional condition, do you have difficulty doing errands alone such as visiting a physician's office or shopping No [facility] 12-23-2024 Functional status Ambulates [facility] Work Phone: 11-26-2024 Functional status Chair [facility] Work Phone: 05-09-2021 Daily Living Activities (DLA-20) [facility] Mental Status Date Assessment Result Facility 01-19-2025 Cognitive function Voice/Name [facility] Work Phone: 01-12-2025 Cognitive function Voice/Name [facility] Work Phone: 12-24-2024 Because of a physica l, mental, or emotional condition, do you have serious difficulty concentrating, remembering, or making decisions No [facility] 12-23-2024 Cognitive function Voice/Name [facility] Work Phone: 12-20-2024 Cognitive function Awake;Alert;Appropriat e [facility] Work Phone: 11-28-2024 Cognitive function Awake;Alert;A ppropriate;[facility] Work Phone: 11-26-2024 Cognitive function Voice/Name [facility] Work Phone: 11-20-2024 Cognitive function Level Of Cons ciousness Awake;Alert;Appropriate;[facility] Work Phone: 11-07-2024 Cognitive function Awake;Alert;A ppropriate;[facility] Work Phone: 05-02-2022 Cognitive function Alert [facility] Work Phone: 04-30-2022 Cognitive function Appropriate;Cooperativ e [facility] Work Phone: 04-25-2022 Cognitive function Alert [facility] Work Phone: Clinical Notes 02-09-2016 to 01-11-2025 Jocelynn Galvez RN - 01/11/2025 3:27 PM Addis Olivares MD - 01/01/2025 9:24 PM Vic Hannah MD, PhD - 12/28/2024 7:55 AM Pratima Parrish APRN- [employer]PING [employer] RECEIVING [employer]HER - 12/25/2024 8:00 AM EDT Note Date & Type Note Facility 01-11-2025 Consult note Formatting of th is note is different from the original. Images from the original note were not included. DIABETES EDUCATION CONSULT Michelle Jules is a 59 y.o. female admitted 12/23/2024. Consult received for diabetes education. Met with pt to review DM learning needs, barriers, and self management plan. Pt was sitting up in chair at her bedside resting quietly, awake, alert and oriented x 3, zero s/sx of acute distress noted at the time of this encounter. Bedside nursing staff to reinforce Diabetes Education: [x]Practicing checking glucoses Testing your blood sugar video [x]Practicing and teachback of insulin injection How to use insulin pen video [x]Carb control/portion control reinforcement Carbohydrates and Blood Sugar video Diabetes Education Resources: Link to diabetes education book in Samoan: DiabetesEducation.pdf Link to diabetes education book in Romanian: DiabetesEducation_SP.pdf Diabetes videos: [email or web address]://[email or web address]/osumych art/[email or web address]?DOCHW [email or web address] Link to order the diabetes education books (you would login and select your location, select the disease, diabetes and then you will see the option to order the book): [email or web address]/Logi n?[email or web address] ng DM History: Type of Diabetes: Type 2 Diabetes Mellitus (T2DM) Date of diagnosis: 2002. Outpatient physician: Pcp. Last Seen: 3 months ago Diabetes Complications: none known Home blood glucoses: Checking blood sugars about 1 times per day. Type of glucometer/strips: CGM Usual results are 100s-200s Home diabetes medications: see med rec Intervention: (Diabetes Education): [x]Diabetes Education booklet provided to patient [x]Pathophysiology of Type 1 or 2 Diabetes [x]Target glucose range and target A1c [x]Self monitoring of glucose [x]Self administration of insulin [x]Nutrition modification/ plate method [x]Benefits of exercise [x]How to assess and treat hypoglycemia [x]How to assess and treat hyperglycemia [x]Sick day rules http://www.innovativetherapeutics. org/wp-content/uploads//STO I-XIH-Ijfc-[employer] .pdf [x]Who to contact in an emergency [x]DKA prevention and symptoms Goals: Pt's goals for better outcomes: zero goal set at the time of this encounter I recommend checking blood sugar 4 x daily (fasting), before meal & at bedtime (HS), practice carb/portion controlled diet Diabetes Supplies: Denied difficulties obtaining medication and supplies. - Glucose monitoring supplies for ACHS: Glucose test strips: dispense 150 with 1 refill - Patient has CGM brand, Lancets: dispense 150 with 1 refill, and alcohol swabs: dispense 200 with 1 refill - The patient will need script for new glucometer: yes: Patient prefers Lance brand or substitute brand covered by insurance Insulin: New to insulin [x]YES []NO New to meal time insulin [x]YES []NO Insulin teaching done including site rotation, how to administer insulin [x]YES []NO Return demonstration [x]YES []NO Follow Up: [x]Per inpatient diabetes team note []Follow up with outpatient Diabetes Education Classes [x]Follow up with PCP Evaluation: Pt seen at her bedside today; we were able to complete DM education: Self monitoring blood sugar (SMBG) discussed and pt provided teach back . We discussed before meals and bedtime, we also reviewed how to use BG levels to dose insulin before meals at home. How to self administer insulin, return demonstratio provided by pt.. The plan is to reinforce this education consistent with each dose of insulin required to increase patient's confidence to self inject. Continue to reinforce self-management. Follow-up needed to reinforce this DM self-management education. Thank you, Jocelynn Galvez APRN-[employer] ADMINISTRATOR HS Material Preparation Worker- Endocrinology, Diabetes & Metabolism Associated Order(s): IP CONSULT TO NEUROLOGY NEUROLOGY IN-PATIENT CONSULTATION NOTE Reason for consultation: new LMD on MRI HISTORY OF PRESENT ILLNESS: Michelle Jules is a 59 y.o. female with history of HFimpEF, cardiomyopathy, IC, presenting as a transfer from [place] for recurrent fevers, NV, LBP. Tmax to 102. Previous admission from november 15 through the or so for MRSA bacteremia. She has chronic low back pain. 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 No saddle anesthesia, no incontinence. The pain is localized around her tailbone. It tends to radiate around the back but not to the stomach. She does get headaches as well typically triggered by spring allergies. She started having them about a year. She didn't have a long history of headaches. She seems to report rapid onset throbbing headaches. She doesn't get nausea or vomiting. She gets them about every other day. Located around her temples. It improves if she lies down and closes her eyes during them. She would feel best lying in a dark room. No aura. No neck pain. No travel, no tick bites, she has a cat and her mother in law has 2 dogs and a cat. No significant cat scratching. She reports some numbness in her legs but she attributes this to her neuropathy. The symptoms are most in her feet. She has arthritis in her feet and hands as well. She did have one fall on the way to an appointment in [place] when she was on the way to her device clinic. She toppled onto her stomach. She doesn't believe she has had an LP done. No episodes of confusion, no neck stiffness. She does report chronic fatigue. She denies rashes, she gets red from the stickers and such form the ECG machines. She is due for her next mammogram, she had one in 2020-. But she missed her last one because she was hospitalized. She is up to date with her colonoscopy (last was 3 years ago). She just had cataract surgery. Her weight goes up and down but no definitive loss. No night sweats. She attributes weight change is related to her mood more than anything. Colon ca runs in the family, breast ca in the family. Her mom had breast cancer, dad had polio at age 8 and from a heart attack. PAXTON runs in the family as well. Son has PAXTON. Daughter also had breast cancer. She is not sure. She was admitted to [facility] for evaluation of ICD lead extraction. She apparently was to complete IV vanco but got it inconsistently due to issues with her picc line. Reportedly KANDY was negative at OSH. Repeat Bcx + for MRSA again. PAST MEDICAL HISTORY Past Medical History: Diagnosis Date Biventricular ICD (implantable cardiac defibrillator) in place Bundle branch block, left Chest pain, unspecified CHF (congestive heart failure) Dilated cardiomyopathy Edema Hyperlipidemia Hypertension Left ventricular systolic dysfunction Metabolic dysfunction-associated steatotic liver disease (MASLD) 2006 CT scan PAXTON (obstructive sleep apnea) no cpap Pulmonary hypertension SOB (shortness of breath) Type 2 diabetes mellitus (T2DM) 2002 PAST SURGICAL HISTORY Past Surgical History: Procedure Laterality Date REMOVAL ICD PULSE GENERATOR N/A 12/29/2024 Laterality: N/A; Surgeon: Carolina Diez MD; Location: [facility] EP TRANSVENOUS PACEMAKER LEAD REMOVAL N/A 12/29/2024 Laterality: N/A; Surgeon: Carolina Diez MD; Location: [facility] ICD PLACEMENT N/A 09/03/2013 Laterality: N/A; Surgeon: Christopher Chakraborty MD; Location: [facility] CARDIAC VEIN ELECTRODE PLACEMENT FOR LV PACING N/A 09/03/2013 Laterality: N/A; Surgeon: Christopher Chakraborty MD; Location: [facility] CARDIAC CATH (OUTSIDE) 04/22/13 [facility] ECHOCARDIOGRAM (OUTSIDE) 04/20/13 [facility] STRESS TEST (OUTSIDE) 04/19/13 [facility] HYSTERECTOMY TOTAL ABDOMINAL OPEN (MARCELO) 2005 ARTHROSCOPY KNEE Right 1988 APPENDECTOMY TONSILLECTOMY FAMILY HISTORY Family History Problem Relation Age of Onset Diabetes Mother 45 T2DM Heart Disease - Other Mother 4 stents Hypertension Mother Myocardial Infarction Father 55 massive mi at 55 years Hypertension Sister Diabetes Maternal Grandmother Heart Failure Maternal Grandmother Breast Cancer Daughter Seizures/Epilepsy Son SOCIAL HISTORY Social History Socioeconomic History Marital status: Spouse name: Not on file Number of children: Not on file Years of education: Not on file Highest education level: Not on file Occupational History Not on file Tobacco Use Smoking status: Never Smokeless tobacco: Not on file Substance and Sexual Activity Alcohol use: No Drug use: No Sexual activity: Not on file Other Topics Concern Not on file Social History Narrative Not on file Social Drivers of Health Financial Resource Strain: Medium Risk (04/05/2023) Received from [facility] Overall Financial Resource Strain (CARDIA) Difficulty of Paying Living Expenses: Somewhat hard Food Insecurity: No Food Insecurity (12/24/2024) NCSS - Food Insecurity Worried About Running Out of Food in the Last Year: No Ran Out of Food in the Last Year: No Transportation Needs: No Transportation Needs (12/24/2024) NCSS - Transportation Lack of Transportation: No Physical Activity: Insufficiently Active (04/05/2023) Received from [facility] Exercise Vital Sign Days of Exercise per Week: 7 days Minutes of Exercise per Session: 20 min Stress: Stress Concern Present (04/05/2023) Received from [facility] [employer] [place] [employer] - Occupational Stress Questionnaire Feeling of Stress : To some extent Social Connections: Socially Isolated (04/05/2023) Received from [facility] Social Connection and Isolation Panel [NHANES] Frequency of Communication with Friends and Family: More than three times a week Frequency of Social Gatherings with Friends and Family: Twice a week Attends Sabianism Services: Never Active Member of Clubs or Organizations: No Attends Club or Organization Meetings: Never Marital Status: Personal Safety: Not At Risk (12/24/2024) NCSS - Interpersonal Safety Feels Physically and Emotionally Safe: Yes Physically Hurt by Someone: No Humiliated or Emotionally Abused by Someone: No Housing Stability: Not At Risk (12/24/2024) NCSS - Housing/Utilities Has Housing: Yes Worried About Losing Housing: No Unable to Get Utilities: No ALLERGIES Allergies Allergen Reactions Latex redness, rash Metformin Messes with heart rhythm Simvastatin myalgia Tape [*Adhesive Tape] itching PRIOR TO ARRIVAL MEDICATIONS Medications Prior to Admission Medication Sig Dispense Refill Last Dose/Taking Atorvastatin 10 MG tablet Take 1 tablet by mouth daily. Taking carveDILOL (COREG) 25 MG PO TABS Take 1 tablet by mouth 2 times daily. 12/23/2024 Morning Cetirizine 10 MG tablet Take 1 tablet by mouth daily. Taking Dulaglutide (Trulicity) 3 MG/0.5ML Solution Auto-injector Inject 3 mg under the skin once a week. Taking DULoxetine [address] Particles capsule DR Take 1 capsule by mouth 2 times daily. 12/23/2024 Morning Gabapentin 300 MG capsule Take 1 capsule by mouth daily. 12/23/2024 Morning Insulin Lispro (HumaLOG KwikPen) 200 UNIT/ML Solution Pen-injector injection Inject 50 Units under the skin 3 times daily. (Patient taking differently: Inject 33 Units under the skin 3 times daily.) Taking Differently Lantus SoloStar 100 UNIT/ML Solution Pen-injector injection Inject 40 Units under the skin 2 times daily. (Patient taking differently: Inject 36 Units under the skin 2 times daily.) Taking Differently magnesium oxide 400 MG PO TABS Take 1 tablet by mouth 2 times daily. 12/23/2024 Morning nystatin 158214 unit/gm Powder Apply 1 Application topically every 12 hours as needed. Taking As Needed Pantoprazole [address] tablet DR Take 1 tablet by mouth 2 times daily. Taking rOPINIRole 0.5 MG tablet Take 1 tablet by mouth at bedtime. Taking sacubitril-valsartan 24-26 MG tablet Take 1 tablet by mouth 2 times daily. 12/23/2024 Morning spironolactone (ALDACTONE) 25 MG Tab take 1 Tab by mouth daily. 30 Tab 5 12/23/2024 Morning CURRENT MEDICATIONS Current Facility-Administered Medications Medication Dose Route Frequency Provider Last Rate Last Admin Acetaminophen (TYLENOL) tablet 650 mg 650 mg Oral Q6H PRN CHAPITO Angel 650 mg at 12/31/24 0818 alum/mag hydrox.-simethicone oral suspension 30 mL 30 mL Oral Q6H PRN ELIESER AngelSHIPPING AND RECEIVING WEIGHER 30 mL at 12/31/24 1634 carveDILOL (COREG) tablet 25 mg 25 mg Oral Q12H ELIESER AngelSHIPPING AND RECEIVING WEIGHER 25 mg at 01/01/25 204 DAPTOmycin (CUBICIN) injection 700 mg 8 mg/kg (Adjusted) Intravenous Q24H CHAPITO Callejas 700 mg at 01/01/252041 Insulin lispro (HUMALOG) injection Subcutaneous 4x daily w/meals, HS Barbara Hannah MD, PhD 12 Units at 01/01/252041 And Insulin lispro (HUMALOG) injection Subcutaneous PRN Barbara Hannah MD, PhD 7 Units at 12/30/24 0754 And Dextrose 50% injection 7.5-25 g 7.5-25 g Intravenous As directed PRN Barbara Hannah MD, PhD And glucose (GLUTOSE) 40 % oral gel 1-2 Tube 1-2 Tube Oral As directed PRN Barbara Hannah MD, PhD [Held by provider] Enoxaparin Sodium (LOVENOX) injection 40 mg 40 mg Subcutaneous Daily CHAPITO Palmer 40 mg at 01/01/25 0729 Gabapentin (NEURONTIN) capsule 300 mg 300 mg Oral Daily CHAPITO Angel 300 mg at 01/01/25 0729 insulin glargine-yfgn (SEMGLEE) injection 50 Units 50 Units Subcutaneous Q12HNS CHAPITO Pickard 50 Units at 01/01/25 2041 Insulin lispro (HUMALOG) injection 0-6 Units 0-6 Units Subcutaneous Q24H CHAPITO Pickard Loratadine (CLARITIN) tablet 10 mg 10 mg Oral Daily CHAPITO Angel 10 mg at 01/01/25 0729 magnesium oxide (MAG-OX) tablet 400 mg 400 mg Oral BID CHAPITO Angel 400 mg at 01/01/25 0729 magnesium oxide (MAG-OX) tablet 800 mg 800 mg Oral As directed PRN CHAPITO Angel 800 mg at 01/01/25 1654 Magnesium sulfate 4 g in sterile water 50 ml premix IVPB 4 g Intravenous As directed PRN CHAPITO Angel nystatin (NYSTOP;MYCOSTATIN) powder 1 Application 1 Application Topical BID CHAPITO Callejas 1 Application at 01/01/25 1648 Ondansetron (ZOFRAN-ODT) disintegrating tablet 4 mg 4 mg Oral Q6H PRN CHAPITO Angel Or Ondansetron 4mg/2ml (ZOFRAN) injection 4 mg 4 mg Intravenous Q6H PRN CHAPITO Angel 4 mg at 12/31/24 2159 oxyCODONE (ROXICODONE) tablet 5 mg 5 mg Oral Q6H PRN CHAPITO Callejas 5 mg at 12/30/242107 Pantoprazole (PROTONIX) tablet DR 40 mg 40 mg Oral Daily CHAPITO Angel 40 mg at 01/01/25728 Polyethylene glycol (MIRALAX) packet 17 g 17 g Oral Daily PRN Liliana Syed APRN-CAROL 17 g at 12/30/242118 Potassium chloride (K-DUR) tablet ER 20 mEq 20 mEq Oral As directed PRN Liliana Syed APRN-CAROL Potassium chloride (K-DUR) tablet ER 40-60 mEq 40-60 mEq Oral As directed PRN Liliana Syed APRN-SHIPPING AND RECEIVING WEIGHER 40 mEq at 12/31/24 0819 rOPINIRole (REQUIP) tablet 0.5 mg 0.5 mg Oral QHS Liliana Syed APRN-CAROL 0.5 mg at 01/01/252040 sacubitril-valsartan (ENTRESTO) 24-26 MG per tablet 1 tablet 1 tablet Oral Q12H CHAPITO Branch 1 tablet at 01/01/25 204 Senna (SENOKOT) tablet 8.6 mg 8.6 mg Oral Q12H PRN Liliana Syed APRN-CAROL 8.6 mg at 12/31/24 1634 Sodium chloride 0.9% IV solution 250 mL 250 mL Intravenous PRN Liliana Syed APRN-SHIPPING AND RECEIVING WEIGHER Stopped at 12/29/24 1623 Spironolactone (ALDACTONE) tablet 25 mg 25 mg Oral Daily Liliana Syed APRN-CAROL 25 mg at 01/01/25 0729 PHYSICAL EXAM Temp: [97.6 F (36.4 C)-99.5 F (37.5 C)] 98.2 F (36.8 C) Pulse (Heart Rate): [60-85] 61 Resp Rate: [18-20] 18 BP: (101-129)/(50-61) 107/57 O2 Sat (%): [93 %-98 %] 97 % Weight: [114.3 kg (251 lb 14.4 oz)] 114.3 kg (251 lb 14.4 oz) Body mass index is 37.2 kg/m . GENERAL: Laying comfortably in bed; in no acute distress. NEUROLOGICAL EXAMINATION MENTAL STATUS: awake and alert; oriented to person, place, year, and month; good attention. Normal mood and affect. Normal insight into condition. Fund of knowledge intact. LANGUAGE/SPEECH: fluent; comprehension intact; object naming intact; repetition intact. CRANIAL NERVES CN II: Visual barroso intact to confrontation. PERRL. Normal conjunctivae and lids. 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 No nystagmus. CN V: Facial sensation is intact to light touch. CN VII: Facial strength normal with symmetric movement. CN VIII: Hearing is grossly intact. CN IX and X: Soft palate elevates symmetrically in the midline CN XI: Shoulder shrug and sternocleidomastoid strength (R/L) 5/5 CN XII: Tongue is midline with normal movement; no fasciculations. MOTOR: Normal bulk and tone. No pronator drift. SA EE EF WE WF DI HF KE KF DF PF Right 5 5 5 5 5 5 5 5 5 5 5 Left 5 5 5 5 5 5 5 5 5 5 5 REFLEXES: Right Left Comments Biceps 2 2 Triceps 2 2 Brachioradialis 2 2 Patellar 2 2 Achilles 0 0 Jaw jerk Hairston neg neg Babinski WD WD COORDINATION:Dpyhoo-ai-nhgc intact bilaterally. Ezuj-yj-jbiu intact bilaterally. Rapid alternating movements are normal. SENSORY: Comments Light touch Intact throughout Pin prick Temperature Diminished distal legs, normal hands Vibration Diminished distal legs, normal in fingers Proprioception Difficulty at toes GAIT: Normal stride length, arm swing, and midly wide base width. Able to toe, heel walk. Cannot tandem, positive romberg. Laboratory data: Lab Results Component Value Date SODIUM 135 01/01/2025 POTASSIUM 4.2 01/01/2025 CHLORIDE 99 01/01/2025 CO2 27 01/01/2025 BUN 10 01/01/2025 CREATSERUM 0.74 01/01/2025 GLUCOSE 226 (H) 01/01/2025 Lab Results Component Value Date WBC 12.05 (H) 01/01/2025 HGB 10.3 (L) 01/01/2025 HCT 32.2 (L) 01/01/2025 PLATELET 185 01/01/2025 MCV 89.9 01/01/2025 Lab Results Component Value Date ALT 14 12/23/2024 AST 14 12/23/2024 ALKPHOS 108 12/23/2024 BILITOTAL 0.3 12/23/2024 BILIDIRECT <0.1 12/23/2024 Imaging/diagnostic procedures: MRI SPINE LUMBAR WITH AND WITHOUT CONTRAST Final Result IMPRESSION: Scattered leptomeningeal enhancement along the spinal cord and involving the cauda equina given the clinical history, this is suggestive of an infectious etiology such as meningitis although is nonspecific. In the absence of a known history of cancer, leptomeningeal carcinomatosis is unlikely. No evidence of spondylodiscitis/osteomyelitis. Multilevel spondylotic change as further detailed in the above report. I personally viewed and interpreted these images and I have reviewed and approved this report. SPINE THORACIC WITH AND WITHOUT CONTRAST Final Result IMPRESSION: Scattered leptomeningeal enhancement along the spinal cord and involving the cauda equina given the clinical history, this is suggestive of an infectious etiology such as meningitis although is nonspecific. In the absence of a known history of cancer, leptomeningeal carcinomatosis is unlikely. No evidence of spondylodiscitis/osteomyelitis. Multilevel spondylotic change as further detailed in the above report. I personally viewed and interpreted these images and I have reviewed and approved this report. SPINE CERVICAL WITH AND WITHOUT CONTRAST Final Result IMPRESSION: Scattered leptomeningeal enhancement along the spinal cord and involving the cauda equina given the clinical history, this is suggestive of an infectious etiology such as meningitis although is nonspecific. In the absence of a known history of cancer, leptomeningeal carcinomatosis is unlikely. No evidence of spondylodiscitis/osteomyelitis. Multilevel spondylotic change as further detailed in the above report. I personally viewed and interpreted these images and I have reviewed and approved this report. CHEST 1 VIEW PORTABLE Final Result IMPRESSION: No acute cardiopulmonary disease SPINE CERVICAL THORACIC WITH CONTRAST Final Result IMPRESSION: No evidence of acute infection involving the cervical spine and thoracic spine. CHEST WITHOUT CONTRAST Final Result IMPRESSION: 1. No suspicious consolidative or nodular opacity in the lungs. 2. Extensive multivessel coronary artery calcifications. CARDIOGRAM TRANSESOPHAGEAL (KANDY) Final Result ECHOCARDIOGRAM Final Result XR CHEST 1 VIEW PORTABLE Final Result IMPRESSION: Stable exam with clear lungs. CARDIOGRAM TRANSESOPHAGEAL (KANDY) IN OR - IMAGES (Results Pending) ASSESSMENT/PLAN Impression: This is a 59 y.o. female HFimpEF, recent MRSA bacteremia, who presents for evaluation of recurrent fevers in the setting of possible vanco failure. She seems to overall deny localizing neurologic symptoms that would be attributable to these MRI findings. Her exam is largely unremarkable other than some sensory changes consistent with a length dependent sensory polyneuropathy which could be attributable to her diabetes. Differential for these MRI findings would include most likely infectious given her ongoing MRSA bacteremia and history although will evaluate for malignant causes as well with screening scans and will recommend LP. Other possibilities would include leptomeningeal carcinomatosis versus autoimmune conditions like neurosarcoidosis. No evidence of AIDP at this point. Recommendations: CT Chest Abdomen Pelvis with contrast malignancy screen LP with cell count, glucose, protein, differential, bacterial culture, AFB culture, biofire, oligoclonal bands from serum and csf, cytology, flow cytometry, Would reach out to ID regarding further infectious workup recs Thank you for the consultation. If you have any further questions, please contact the neurology consult team B resident needle control cheniller. Kasandra Olivares MD Cosigned by Debby Smith DO at 01/02/2025 12:22 PM EDT Associated attestation - Debby Smith DO - 01/02/2025 12:22 PM EDT I saw and independently examined the patient today on 01/02/25. I have personally reviewed all labs/imaging and chart/notes. I agree with the history, examination, and medical decision making as outlined by the resident with the following additions: 9 y.o. female with history of HFimpEF, cardiomyopathy, IC, presenting as a transfer from [place] for recurrent fevers, NV, LBP. Tmax to 102. Admitted for persistent MRSA bacteremia/vancomycin failure. Neurology consulted due to diffuse patchy leptomeningeal enhancement long the entire spinal cord suggestive of infectious process. Patient reports low back pain otherwise no signficant symptoms. Exam with decreased sensation in the distal legs. Most suspicious for infectious process given history of MRSA bacteremia. Less likely cancer or inflammatory process. Will need LP to better clarify etiology of MRI findings. - LP with below studies I have personally reviewed/interpreted the following tests and diagnostics: ESR 84, CRP 98, CT C/A/P unremarkable. MRI C/T/L spine w/wo: Scattered leptomeningeal enhancement along the spinal cord and involving the cauda equina given the clinical history, this is suggestive of an infectious etiology such as meningitis although is nonspecific Debby Smith DO Attending Neurologist [facility] Associated Order(s): IP CONSULT TO ENDOCRINOLOGY - DIABETES Images from the original note were not included. [facility] Inpatient Diabetes Consults - For provider needle control cheniller: QGENDA: Team 2 Impression: Uncontrolled Type 2 Diabetes Mellitus (T2DM) admitted with recurrent MRSA with concern for ICD device infection DM microvascular complications: peripheral neuropathy, cardiovascular disease, and heart failure A1c on admission: 10.8% BG above target range. Initiate carb coverage & intensify correction then re-assess this evening to consider adjusting basal dosing Diabetes Inpatient Plan: Basal: Insulin glargine: 40 units q12 hour Prandial: Insulin lispro: 1 unit per 4 gram carbs qachs & prn Correction: Insulin lispro: 1->2 unit(s) per every 50->25 mg/dL above 150 mg/dL qachs Diabetes Education: discussed insulin dosing with focus on prandial habits Diabetes Health Maintenance BP goal is < 140/90 LDL cholesterol goal is at least <70 mg/dL. Consider increase statin dose and/or add ezetimibe Reminded to complete annual Fphuugx-le-Dbtorehgqr Ratio and eye, dental & foot exams Reviewed vaccination history. None due at this time Diabetes Discharge Planning: Considerations for discharge regimen: Insulin: she needs to learn to match insulin to food GLP1: resume trulicity at discharge SGLT2i: could consider as eGFR is adequate metformin: declines, stating it interferes with her cardiac rhythm She will need a prescription for glucagon. Please order Baqsimi Follow up needed: Does not need [facility] Endocrinology appt PCP within 1- 2 weeks Thank you for allowing us to participate in your patients care. If you have questions please use QGenda: Team 2. We will follow glucose trends with you and make recommendations as indicated. CC: uncontrolled hyperglycemia Date of admission: 12/23/2024 Admission diagnosis: MRSA bacteremia [R78.81, B95.62] History of Present Illness: Michelle Juels is a 59 y.o. year old female with Type 2 Diabetes Mellitus (T2DM) diagnosed in 2002 who is seen in consultation at the request of Wallace Lugo MD for assistance with evaluation of hyperglycemia and to make treatment recommendations. She was interviewed at her bedside in [place]. She was admitted for evaluation of recurrent MRSA with concern for possible infection of her ICD. BG range since arrival has been 130-359, then 340 this morning. She is eating without problems. Diet is heart healthy without carb control and no carb counts have been documented.she has been receiving corrective doses of insulin lispro that have not been able to prevent the hyperglycemia. She does not carb count at home. She estimates dose based on size of meal and content of meal. She is not about to give me any examples other than that a usual dinner would be 33 units. She does not miss doses. Prandial doses are usually given just prior to a meal. She injects in central stomach and reports no skin issues. She does not do routine self-assessment to adjust basal insulin dosing. She feels glucose trends are improved since adding trulicity, lucas with recent increase to 3 mg weekly. She reports taking dose last wed but missing the wed prior due to hospitalization. Plan to initiate high dose carb coverage and intensify correction then assess tonight and in the am for further adjustments. She would benefit from DM Education but would want to do it locally as she lives about [place] here. Current insulin orders: Basal: Insulin glargine 40 units Q12h Prandial: none Correction: 1 unit per 25 mg/dl above 150 mg/dl Insulin dosing over the last 24 hours: Glargine: 40+40 = 80 units Lispro: 5+5+7+8 = 25 units Current Diet Orders Procedures DIET HEART HEALTHY - 4 GM SODIUM Standing Status: Standing Number of Occurrences: 1 Glucose Review: Diabetes History Lab Results Component Value Date HGBA1C 10.8 (H) 12/23/2024 Diagnosis (aprox date): 2002 Family History: T2DM: mother grandparent(s) Outpatient Clinic: PCP Prior regiments: issues with past DM medications: Metformin - affected patient's heart rhythm Steglatro - concern for BRIANA, Scr increased after starting Home regimen: Basal: insulin glargine 36 units q12 hour Prandial: insulin lispro unknown ICR. Typical dose is 33 units per meal Correction: insulin lispro unknown correction dosing Noninsulin injectables: Trulicity 3mg every sat Orals: glyburide (last filled September 2024 for 30 day supply) BP: carvedilol, lasix, and Entresto Heart Failure: no SGLT2i therapy Lipids: atorvastatin Diabetes Complications: peripheral neuropathy, cardiovascular disease, heart failure, and MASLD Date of most recent dilated eye exam: 2023 Tobacco/Nicotine: She reports that she has never smoked. She does not have any smokeless tobacco history on file. DKA occurrences: none History of Pancreatitis: no History of GMI or UTI: None Home blood glucoses: glucose meter: One Touch Verio and Freestyle Libre3+ using reader (not phone) Hypoglycemia: daily to weekly Immunization History Administered Date(s) Administered [id number] COVID-19 monovalent vaccine, mRNA, Moderna, 50 mcg/0.25 mL booster 09/28/2020, 10/26/2020, 07/27/2021, 03/07/2022 COVID-19 MRNA (The Daily Hundred) 12+YR, 30 MCG/0.3 ML 05/30/2023 Influenza Vaccine, MDCK PF 08/05/2024 Pneumococcal Conjugate Pcv20, Polysaccharide Hgj001 Conjugate, adjuvant, PF 03/15/2023 Pneumococcal Polysac 23-Valent Vaccine 07/15/2012 Tdap Vaccine 04/22/2019, 04/30/2022 Zoster Vaccine, Recomb 12/29/2019, 03/30/2020, 05/03/2020 Social History Tobacco Use Smoking Status Never Smokeless Tobacco Not on file Social History Substance and Sexual Activity Alcohol Use No Past Medical History: Diagnosis Date Biventricular ICD (implantable cardiac defibrillator) in place Bundle branch block, left Chest pain, unspecified CHF (congestive heart failure) Diabetes mellitus Dilated cardiomyopathy Edema Hyperlipidemia Hypertension Hypertension Left ventricular systolic dysfunction PAXTON (obstructive sleep apnea) no cpap Pulmonary hypertension SOB (shortness of breath) Past Surgical History: Procedure Laterality Date ICD PLACEMENT N/A 09/03/2013 Laterality: N/A; Surgeon: Christopher Chakraborty MD; Location: [facility] EP CARDIAC VEIN ELECTRODE PLACEMENT FOR LV PACING N/A 09/03/2013 Laterality: N/A; Surgeon: Christopher Chakraborty MD; Location: [facility] CARDIAC CATH (OUTSIDE) 04/22/13 [facility] ECHOCARDIOGRAM (OUTSIDE) 04/20/13 [facility] STRESS TEST (OUTSIDE) 04/19/13 [facility] HYSTERECTOMY TOTAL ABDOMINAL OPEN (MARCELO) 2005 ARTHROSCOPY KNEE Right 1988 APPENDECTOMY TONSILLECTOMY Family History Problem Relation Age of Onset Diabetes Mother Heart Disease - Other Mother 4 stents Myocardial Infarction Father massive mi at 55 years HOSPITAL MEDS: carveDILOL 25 mg Oral Q12H DAPTOmycin 8 mg/kg (Adjusted) Intravenous Q24H enoxaparin 40 mg Subcutaneous Daily Gabapentin 300 mg Oral Daily insulin glargine 40 Units Subcutaneous Q12H Insulin lispro Subcutaneous 4x daily w/meals, HS Loratadine 10 mg Oral Daily magnesium oxide 400 mg Oral BID nystatin 1 Application Topical BID Pantoprazole 40 mg Oral Daily rOPINIRole 0.5 mg Oral QHS [Held by provider] sacubitril-valsartan 1 tablet Oral Q12H Spironolactone 25 mg Oral Daily ALLERGIES: is allergic to latex, metformin, simvastatin, and tape [*adhesive tape]. INFUSIONS:The past family, medical, and social history were otherwise reviewed and documented in the electronic record system. ROS: Pertinent items are noted in the HPI. She denies symptoms of hypoglycemia, fatigue, polyuria/polydipsia, or blurry vision. Constitutional: Pt denies confusion, changes in mental status, or fatigue. Reported recent mild weight change Skin: Negative for lesions, rashes, sores, discoloration. HENT: Negative for sore throat, dysphagia, odynophagia, dry mouth. Eyes: Negative for double vision, blurring, tearing, loss of vision Cardiovascular: Negative for palpitations, chest pain, claudication. Respiratory: Negative for SOB, MCKNIGHT Gastrointestinal: Negative for nausea, vomiting, diarrhea, constipation. Genitourinary: Negative for bladder incontinence, dysuria, hematuria. Stable nocturia Physical Exam General/Constitutional: female, who looks her stated age of 59 y.o.. No acute distress. Vital Signs: BP 112/64 (BP Location: Right arm, BP Position: Lying) Pulse 76 Temp 98.5 F (36.9 C) (Oral) Resp 16 Ht 1.753 m (5' 9) Wt 112.3 kg (247 lb 9.6 oz) Comment: standing SpO2 96% BMI 36.56 kg/m Smoking Status Never , Wt Readings from Last 3 Encounters: 12/28/24 112.3 kg (247 lb 9.6 oz) 01/28/14 81.2 kg (179 lb) 10/05/13 80.6 kg (177 lb 9.6 oz) Body mass index is 36.56 kg/m . O2 Sat (%): [94 %-96 %] 96 % O2 Device: room air HEENT: Head: Normocephalic and atraumatic. Eyes: Sclerae and conjunctiva are clear. Airway is normal. Neck: Supple, non-tender, with no lymphadenopathy. No carotid bruits, moderate acanthosis nigricans. Cardiac: regular rhythm, normal rate. Normal S1, S2. No murmurs, rubs or gallops. Pulmonary/Chest: Lungs are clear to ascultation bilaterally with normal respiratory effort. No wheezes, rhonchi or rales. Abdomen: Soft, non-tender, non-distended, normoactive bowel sounds. No organomegaly. No lipohypertrophy/lipodystrophy. Musculoskeletal: No bony deformities, normal muscle mass and tone Extremities: No cyanosis or clubbing. (+) peripheral edema. Peripheral Vascular Exam: 2+ dorsalis pedis pulses. Neurological: Conscious, alert and interactive. Skin: Skin is warm and dry. No ulcers or lesions on the feet and nails are intact. Psychiatric: Appropriate mood and affect for her clinical situation. Procedure / Imaging / Lab Data: Pertinent procedure/imaging/lab data was reviewed: Lab Results Component Value Date HGBA1C 10.8 (H) 12/23/2024 Lab Results Component Value Date CHOLESTEROL 124 12/23/2024 TRIG 138 12/23/2024 HDL 26 (L) 12/23/2024 LDLCALC 70 12/23/2024 Lab Results Component Value Date SODIUM 136 12/28/2024 POTASSIUM 4.1 12/28/2024 CHLORIDE 99 12/28/2024 CO2 28 12/28/2024 BUN 10 12/28/2024 CREATSERUM 0.73 12/28/2024 GLUCOSE 260 (H) 12/28/2024 No results found for: SPGRVTYUR, SPECGRAVUR, GLUCUR, GLUCOSEURINE, BILIRUBINURI, KETONESURINE, BLOODURINE, PHURINE, NITRITEURINE, NITRITESURIN, LEUKOCESTUR, WBCURINE, RBCURINE, BACTERIAURIN Lab Results Component Value Date TSH 1.397 12/23/2024 No results found for: CREATURINE, MICROALBUMIN, MICALBCREAT Lab Results Component Value Date ALT 14 12/23/2024 No results found for: PREALBUMIN FIB-4 Calculation: 1.21 at 12/28/2024 4:15 AM Calculated from: SGOT/AST: 14 U/L at 12/23/2024 11:42 PM SGPT/ALT: 14 U/L at 12/23/2024 11:42 PM Platelets: 179 K/uL at 12/28/2024 4:15 AM Age: 59 years ECHO: Results for orders placed during the hospital encounter of 12/23/24 ECHOCARDIOGRAM TRANSESOPHAGEAL (KANDY) 12/25/2024 (Final) Interpretation Summary KANDY for evaluation of MRSA bacteremia. Possible small filamentous echodensity associated with either the coronary sinus or RV lead, not well seen There is nonspecific thickening of the aortic valve with fibrinous stranding Minimal amount of filamentous stranding present on the atrial side of the mitral valve, more consistent with age related degenerative changes, less likely to represent infection. Left ventricular systolic function is mildly reduced, estimated LVEF ~45-50%. Right ventricular size and systolic function are normal. No thrombus in the left atrium, left atrial appendage, or right atrium. Mild MR. Mild TR. RVSP of 28 mmHg plus right atrial pressure No evidence of interatrial shunt by color Doppler and negative bubble contrast study. Grade 2 aortic atherosclerosis noted in the descending aorta. Trivial to small pericardial effusion. CATH: No results found for this or any previous visit from the past 3650 days. Associated Order(s): IP CONSULT TO SURGERY - CARDIAC CARDIAC SURGERY CONSULT NOTE Reason for Consult: High lead application architect extraction back-up We were asked by Dr. Wallace Lugo MD to see Michelle Jules and offer our opinion on the evaluation and treatment of surgical back-up for high lead application architect extraction. Ms. Jules is a 59 y.o. female who has a past medical history of ICM/HFrEF, s/p ICD, HTN, HLD, T2DM (recent A1c 10.8%) with chronic neuropathy, obesity, gout, RLS, allergic rhinitis and recent MRSA bacteremia on vacomycin who presented to the [facility] ED on 12/20/24 with c/o recurrent fevers, N/V and lumbar back pain. Tm 102.1. She had been receiving vancomycin via PICC line (EOT 01/02) but the last couple days she was having trouble with the line and did not receive some doses of her antibiotic. ID was consulted there and blood cultures from 12/20 revealed MRSA. Her vancomycin was continued. She was transferred for consideration of device lead extraction. Cardiac surgery has been consulted for surgical evaluation of high lead application architect extraction per EP colleagues' request. PSHx: No previous sternotomy. Social: Denies tobacco, alcohol, and recreational drug intake. Caregiver Support: Lives with family. Caregiver for mother in law. Skin: Intact. Mobility: Independent of ADLs. REVIEW OF SYSTEMS Full review of systems performed. All others are negative except as indicated in HPI. RELEVANT INFORMATION Past Medical History: Diagnosis Date Biventricular ICD (implantable cardiac defibrillator) in place Bundle branch block, left Chest pain, unspecified CHF (congestive heart failure) Diabetes mellitus Dilated cardiomyopathy Edema Hyperlipidemia Hypertension Hypertension Left ventricular systolic dysfunction PAXTON (obstructive sleep apnea) no cpap Pulmonary hypertension SOB (shortness of breath) Past Surgical History: Procedure Laterality Date ICD PLACEMENT N/A 09/03/2013 Laterality: N/A; Surgeon: Christopher Chakraborty MD; Location: [facility] EP CARDIAC VEIN ELECTRODE PLACEMENT FOR LV PACING N/A 09/03/2013 Laterality: N/A; Surgeon: Christopher Chakraborty MD; Location: [facility] CARDIAC CATH (OUTSIDE) 10/9/13 [facility] ECHOCARDIOGRAM (OUTSIDE) 04/20/13 [facility] STRESS TEST (OUTSIDE) 04/19/13 [facility] HYSTERECTOMY TOTAL ABDOMINAL OPEN (MARCELO) 2005 ARTHROSCOPY KNEE Right 1988 APPENDECTOMY TONSILLECTOMY Family History Problem Relation Age of Onset Diabetes Mother Heart Disease - Other Mother 4 stents Myocardial Infarction Father massive mi at 55 years Social History reports that she has never smoked. She does not have any smokeless tobacco history on file. She reports that she does not drink alcohol and does not use drugs. Social History Tobacco Use Smoking Status Never Smokeless Tobacco Not on file Social History Substance and Sexual Activity Alcohol Use No Allergies Allergies Allergen Reactions Latex redness, rash Metformin Messes with heart rhythm Simvastatin myalgia Tape [*Adhesive Tape] itching Current Medications Scheduled Meds: carveDILOL 25 mg Oral Q12H DAPTOmycin 8 mg/kg (Adjusted) Intravenous Q24H enoxaparin 40 mg Subcutaneous Daily Gabapentin 300 mg Oral Daily insulin glargine 40 Units Subcutaneous Q12H Insulin lispro Subcutaneous 4x daily w/meals, HS Loratadine 10 mg Oral Daily magnesium oxide 400 mg Oral BID Pantoprazole 40 mg Oral Daily rOPINIRole 0.5 mg Oral QHS [Held by provider] sacubitril-valsartan 1 tablet Oral Q12H Spironolactone 25 mg Oral Daily Continuous Infusions: PRN Meds:Acetaminophen, alum/mag hydrox.-simethicone, Insulin lispro AND BLOOD GLUCOSE (POC DEVICE) AND BLOOD GLUCOSE (POC DEVICE) AND COMMUNICATION ORDER FOR NURSING CARE: For Blood Glucose LESS THAN 80 mg/dl AND Dextrose AND glucose AND NOTIFY PHYSICIAN, Blood Glucose LESS THAN 80 mg/dl, magnesium oxide, magnesium sulfate, Ondansetron OR Ondansetron 4mg/2ml, Polyethylene glycol, Potassium chloride, Potassium chloride, Senna, Sodium chloride 0.9% DIAGNOSTIC RESULTS Echocardiogram TTE 12/24/2024 Technically challenging study, sub-optimal image quality, even with the use of contrast. Left Ventricle: Chamber size is normal. Normal wall thickness. Normal global systolic function. Regional wall motion is normal regional wall motion not well visualized. Ejection fraction is normal (60 - 65%). Diastolic function is normal. Right Ventricle: Right ventricle not well visualized. Chamber size is mildly enlarged. Systolic function is normal. Device wire is present. Valves not well visualized overall, but no overt vegetations noted on limited assessment. No hemodynamically significant valvular disease. No echo/Doppler evidence for pulmonary hypertension. Estimated right ventricular systolic pressure is 29 mmHg. Small pericardial effusion adjacent to the right ventricle without evidence of tamponade. TTE 03/20/2023 CONCLUSIONS: - Technically difficult exam due to body habitus. - Exam indication: atrial fib - The left ventricle is mildly dilated. Left ventricular systolic function is normal. EF = 60 5% (2D biplane) Definity contrast used for endocardial border detection. Normal left ventricular diastolic function. - The right ventricle is normal in size. Right ventricular systolic function is normal. - There are no significant valvular abnormalities. - The patient has not had a prior CC echocardiographic exam for comparison. TTE 01/28/2014 Conclusions 1. Normal left ventricular size with mod-severely reduced systolic function, LVEF 25-30%. 2. Normal right ventricular size with mild-mod reduced systolic function. 3. Wire in RA/RV. 4. No significant valvular heart disease. 5. Compared to the study from 07/2013 there has been mild improvement in systolic function. Labs: Lab Results Component Value Date WBC 6.08 12/25/2024 HGB 11.0 (L) 12/25/2024 PLATELET 145 (L) 12/25/2024 PTT 26 10/05/2013 INR 1.0 10/05/2013 SODIUM 141 12/25/2024 POTASSIUM 4.1 12/25/2024 CHLORIDE 105 12/25/2024 CO2 26 12/25/2024 BUN 7 12/25/2024 CALCIUM 8.7 12/23/2024 MAGNESIUM 1.9 12/25/2024 PHOSPHORUS 3.1 12/23/2024 AST 14 12/23/2024 ALKPHOS 108 12/23/2024 BILITOTAL 0.3 12/23/2024 BILIDIRECT <0.1 12/23/2024 ALBUMIN 3.4 (L) 12/23/2024 HGBA1C 10.8 (H) 12/23/2024 Lab Results Component Value Date CREATSERUM 0.72 12/25/2024 PHYSICAL EXAM Physical Exam Vital Signs (24hrs): Blood pressure 134/67, pulse 85, temperature 97.9 F (36.6 C), temperature source Oral, resp. rate 18, height 1.753 m (5' 9), weight 116.4 kg (256 lb 9.6 oz), SpO2 96%. Pulmonary/Cardiac Hemodynamics Pulse (Heart Rate): 85 BSA (Calculated - sq m): 2.32 m2 Body mass index is 37.89 kg/m . Intake/Output Summary (Last 24 hours) at 12/25/2024 0800 Last data filed at 12/25/2024 0600 Gross per 24 hour Intake 1453.05 ml Output 4450 ml Net -2996.95 ml Wt Readings from Last 3 Encounters: 12/25/24 116.4 kg (256 lb 9.6 oz) 01/28/14 81.2 kg (179 lb) 10/05/13 80.6 kg (177 lb 9.6 oz) General appearance: alert, cooperative, appears stated age Lungs: clear to auscultation bilaterally Heart: regular rate and rhythm, S1, S2 normal, no murmur, click, rub or gallop Abdomen: soft, non-tender. Bowel sounds normal. No masses, no organomegaly Extremities: extremities normal, atraumatic, no cyanosis or edema Pulses: 2+ and symmetric Skin: Skin color, texture, turgor normal. No rashes or lesions Neurologic: Grossly normal Psych: Appropriate mood and affect for clinical situation ASSESSMENT/PLAN RECOMMENDATIONS: We would recommend evaluation for high lead application architect extraction. Once this work-up is complete we will determine surgical back-up plan. Please plan for procedures on Tuesdays unless otherwise arranged with the cardiac surgery attending. Please obtain the following if not already done: -CT chest without contrast -KANDY or TTE to assess for valvular vegetations and assess EF/degree of heart failure Will review case and imaging with Dr. Walker to make final decision regarding surgical back up. Thank you for the consult. Please call with any additional questions or concerns. CHAPITO Garza [facility] [place] Phone #[phone] Cosigned by Elias Walker MD at 12/28/2024 1:17 PM EDT Associated Order(s): IP CONSULT TO CARDIOLOGY - EP Cardiac Electrophysiology Consultation Michelle Jules [id number] Reason for consult: concern device may be infected with MRSA, should it be removed? IMPRESSION & RECOMMENDATIONS: # Probable CIED Infection: Persistent/recurrent MRSA bacteremia with retained BiV ICD implanted in 2013. The device interrogation is pending at this time. The most recent device interrogation from [facility] 10/22/2023 shows that the patient is 100% V-paced. The patient will need high lead application architect extraction with complete device removal and temporary pacing wire placement prior to re-implantation. Please obtain a device interrogation and KANDY. Continue antibiotics at this time. Please consult CT surgery for surgical backup. -- Agree with KANDY and lumbar spine imaging -- Device interrogation -- CT surgery consultation for surgical backup -- High risk extraction -- Bairon Power MD, MS Fellow, Cardiovascular Medicine Staffed with Dr. Joseph DATA: ECG: all ECGs from this admission that are in EKG [place] are personally reviewed and interpreted. Historical ECGs reviewed as needed. Telemetry: reviewed Rads: reviewed Cardiac Studies: All echocardiograms, CMRs from this admission reviewed. Historical echos, CMR, caths reviewed on an as needed basis. HPI: 59 y.o.female hx of HFrEF 2/2 NICM s/p BiV ICD implantation in 2013, HTN, HLD, T2DM c/b peripheral neuropathy, class II obesity, gout and recent MRSA bacteremia of unclear etiology at [facility] in November 2024. The patient had been discharged with plans for 6 weeks of IV vancomycin via PICC line; however, she had missed doses of her antibiotic due to PICC line malfunction and presented to [facility] on 12/20/2024 with recurrent fevers and blood cultures positive, once again, for MRSA. The patient was transferred to [facility] on 12/23/2024 for ongoing management with consideration of high lead application architect extraction. The patient was seen and examined at bedside. She denies any current symptoms. She states that she went to the hospital in November for fever, chills, and back pain. She's unsure what imaging was done at that time. She does state that she had a KANDY and her valves were OK. She was discharged with IV vancomycin via PICC line; however, she missed several doses this week. She re-presented to [facility] with complaint of fever, nausea, and vomiting this time. She denies any pain at her device pocket, joint swelling, skin infection, chest pain, palpitations, or shortness of breath. ROS: Negative except as noted in HPI. HISTORY: PAST MEDICAL HISTORY: She has a past medical history of Biventricular ICD (implantable cardiac defibrillator) in place, Bundle branch block, left, Chest pain, unspecified, CHF (congestive heart failure), Diabetes mellitus, Dilated cardiomyopathy, Edema, Hyperlipidemia, Hypertension, Hypertension, Left ventricular systolic dysfunction, PAXTON (obstructive sleep apnea), Pulmonary hypertension, and SOB (shortness of breath). She has no past medical history of CAD (coronary artery disease), Depressive disorder, not elsewhere classified, GERD (gastroesophageal reflux disease), Glaucoma, Hepatitis, Hyperthyroidism, Hypothyroidism, Liver disease, OK (myocardial infarction), Migraine, Renal disease, Seizure, Stroke, TIA (transient ischemic attack), or Vascular disease. SOCIAL HISTORY: She reports that she has never smoked. She does not have any smokeless tobacco history on file. She reports that she does not drink alcohol and does not use drugs. FAMILY HISTORY: Her family history includes Diabetes in her mother; Heart Disease - Other in her mother; Myocardial Infarction in her father. She She indicated that her mother is alive. She indicated that her father is . PAST SURGICAL HISTORY: Her has a past surgical history that includes echocardiogram (outside) (04/20/13); stress test (outside) (04/19/13); CARDIAC CATH (OUTSIDE) (04/22/13); appendectomy; hysterectomy total abdominal open (marcelo) (2005); tonsillectomy; arthroscopy knee (Right, 1988); icd placement (N/A, 09/03/2013); and cardiac vein electrode placement for lv pacing (N/A, 09/03/2013). ALLERGIES: Allergies Allergen Reactions Latex redness, rash Metformin Messes with heart rhythm Simvastatin myalgia Tape [*Adhesive Tape] itching HOME MEDICATIONS: Medications Prior to Admission Medication Sig Dispense Refill Last Dose/Taking albuterol 108 (90 BASE) MCG/ACT IN AERS as needed. Taking As Needed aspirin 81 MG PO TABS 1 tablet daily. Taking carveDILOL (COREG) 25 MG PO TABS 1 tablet 2 times daily. 12/23/2024 Morning DULoxetine [address] Particles capsule DR Take 1 capsule by mouth 2 times daily. 12/23/2024 Morning enalapril (VASOTEC) 2.5 MG PO TABS 1 tablet daily. 12/23/2024 Morning Gabapentin 300 MG capsule Take 1 capsule by mouth 3 times daily. 12/23/2024 Morning Linagliptin (TRADJENTA) 5 MG Tab Take 1 tablet by mouth daily. 12/23/2024 Morning magnesium oxide 400 MG PO TABS 1 tablet 2 times daily. 12/23/2024 Morning metformin 500 MG PO TABS 2 tabs at breakfast, 1 at lunch, 2 at dinner. Taking OMEPRAZOLE [address] TAKE ONE CAPSULE BY MOUTH ONCE DAILY 30 Cap 0 12/23/2024 Morning sacubitril-valsartan 24-26 MG tablet Take 1 tablet by mouth 2 times daily. 12/23/2024 Morning spironolactone (ALDACTONE) 25 MG Tab take 1 Tab by mouth daily. 30 Tab 5 12/23/2024 Morning diphenhydrAMINE (BENADRYL) 25 MG PO TABS as needed. More than a month furOSEmide 40 MG PO TABS 1 tablet daily. More than a month rOPINIRole 1 MG Tab Take 1 tablet by mouth at bedtime. 12/22/2024 simvastatin 10 MG Tab Take 1 tablet by mouth at bedtime. 12/22/2024 CURRENT MEDICATIONS: carveDILOL 25 mg Oral Q12H DAPTOmycin 8 mg/kg (Adjusted) Intravenous Q24H enoxaparin 40 mg Subcutaneous Daily Gabapentin 300 mg Oral Daily insulin glargine 40 Units Subcutaneous Q12H Insulin lispro Subcutaneous 4x daily w/meals, HS Loratadine 10 mg Oral Daily magnesium oxide 400 mg Oral BID Pantoprazole 40 mg Oral Daily rOPINIRole 0.5 mg Oral QHS [Held by provider] sacubitril-valsartan 1 tablet Oral Q12H Spironolactone 25 mg Oral Daily OBJECTIVE: Temp: [97.7 F (36.5 C)-98.1 F (36.7 C)] 97.9 F (36.6 C) Pulse (Heart Rate): [52-85] 85 Resp Rate: [13-18] 18 BP: (122-156)/(58-70) 134/67 O2 Sat (%): [94 %-96 %] 96 % Weight: [116.4 kg (256 lb 9.6 oz)-118.7 kg (261 lb 11 oz)] 116.4 kg (256 lb 9.6 oz) Physical Exam General appearance - NAD Chest - normal rise and fall Heart - regular rate and rhythm Abdomen - non-distended. Extremities - no edema Skin - no generalized rash. Psych - mood appropriate Lab Results Component Value Date SODIUM 140 12/24/2024 SODIUM 137 10/05/2013 POTASSIUM 3.7 12/24/2024 POTASSIUM 4.3 10/05/2013 GLUCOSE 190 (H) 12/24/2024 GLUCOSE 177 (H) 10/05/2013 GLUCOSE 178 (H) 10/05/2013 CHLORIDE 106 12/24/2024 CHLORIDE 104 10/05/2013 CO2 27 12/24/2024 CO2 28 10/05/2013 BUN 7 12/24/2024 BUN 16 10/05/2013 CREATSERUM 0.76 12/24/2024 CREATSERUM 0.85 10/05/2013 TSH 1.397 12/23/2024 Lab Results Component Value Date WBC 5.70 12/24/2024 WBC 5.8 10/05/2013 HGB 11.9 12/24/2024 HGB 12.4 10/05/2013 HCT 35.9 12/24/2024 HCT 36.1 10/05/2013 PLATELET 136 (L) 12/24/2024 PLATELET 170 10/05/2013 MCV 89.8 12/24/2024 MCV 93.6 10/05/2013 Lab Results Component Value Date PT 13.1 10/05/2013 PTT 26 10/05/2013 INR 1.0 10/05/2013 Cosigned by Noé Joseph MD at 12/25/2024 1:29 PM EDT Associated attestation - Noé Joseph MD - 12/25/2024 1:29 PM EDT Attending Physician Note I have personally interviewed and examined this patient with the Fellow. I have reviewed the history and examination and edited these in the note above. I agree with the medical decision and components of the note as edited by me. Patient is alert and oriented and VS stable. In summary, Michelle Jules is a 59 y.o. female who presents for MRSA bacteremia. She has recurrent MRSA bacteremia of unclear source. She has a RESISTOR INSPECTOR-D that was implanted in 2013 for primary prevention. Device extraction is indicated. We will obtain Cardiac Surgery consult for surgical backup consideration. Noé Joseph MD Clinical Student Admissions Clerk Cardiac Electrophysiology Associated Order(s): IP CONSULT TO INFECTIOUS DISEASE Infectious Disease ID Team 3 (SOT) Consult Note Referring MD: Wallace Lugo MD Reason for Consult: MRSA bacteremia Chief Complaint: transfer from OSH Identifying Information Name: Michelle Jules Date of : 1965 LOS: 1 HPI Michelle Jules is a 59 y.o. female with a PMH of ICM/HFrEF, s/p ICD, and recent MRSA bacteremia on vacomycin who presented on 12/23/2024 as a transfer from OSH for the management of MRSA bacteremia. She initially presented to [facility] ED on 12/20/24 with c/o recurrent fevers and nausea and vomiting. She was recently diagnosed with MRSA bacteremia (November 2024) and was on IV vancomycin with a plan to continue for 6 weeks (EOT 01/02), however missed doses due to issues with her PICC. Upon presentation to OSH, she was found to have positive blood cultures for MRSA and she was transferred for device extraction. ID consulted to help with workup and treatment. Upon my evaluation, patient was afebrile, hemodynamically stable, and on room air. Lab work was largely unremarkable. Review of systems All systems reviewed and negative unless stated in the HPI. Antimicrobials Vancomycin Current Medications As reviewed in the electronic medical record and confirmed from history and/or chart review. Past Medical/Surgical History As reviewed in the electronic medical record and confirmed from history and/or chart review. Social/Family History As reviewed in the electronic medical record and confirmed from history and/or chart review. Allergies As reviewed in the electronic medical record and confirmed from history and/or chart review. Physical Exam Vital Signs (24hrs): Temp: [97.9 F (36.6 C)-98 F (36.7 C)] 98 F (36.7 C) Pulse (Heart Rate): [56-74] 60 Resp Rate: [13-22] 15 BP: (122-151)/(58-73) 122/58 O2 Sat (%): [95 %] 95 % Weight: [117.8 kg (259 lb 12.8 oz)-118.7 kg (261 lb 11.2 oz)] 117.8 kg (259 lb 12.8 oz) Physical Exam GEN: Awake EYES: no scleral icterus HENT: MMM. NECK: Supple CARDIO: RRR, no murmur. PULM/CHEST: CTAB. No increased work of breathing ABD: Normal bowel sounds, soft, not tender or distended. SKIN: No rashes. NEURO: AOx3. No focal deficits. Psych: normal affect Labs Lab Results Component Value Date WBC 5.70 12/24/2024 HGB 11.9 12/24/2024 HCT 35.9 12/24/2024 PLATELET 136 (L) 12/24/2024 MCV 89.8 12/24/2024 Lab Results Component Value Date CREATSERUM 0.76 12/24/2024 Lab Results Component Value Date ALT 14 12/23/2024 AST 14 12/23/2024 ALKPHOS 108 12/23/2024 BILITOTAL 0.3 12/23/2024 BILIDIRECT <0.1 12/23/2024 No results found for: SEDRATE No results found for: CRP Microbiology Data (personally reviewed) Blood cultures: 12/20/24 (OSH): MRSA (S to tetracycline and TMP-SMX) 12/21/24 (OSH): MRSA 12/24/24 (OSH): in process Diagnostics and Imaging (personally reviewed) XR CHEST 1 VIEW PORTABLE, 12/23/2024 -Left subclavian 3-lead ICD with lead tips in the right atrium, right ventricle -Stable exam with clear lungs. Impression Michelle Jules is a 59 y.o. female with a PMH of ICM/HFrEF, s/p ICD, and recent MRSA bacteremia on vacomycin who presented on 12/23/2024 as a transfer from OSH for the management of MRSA bacteremia. Relapsed MRSA bacteremia - likely in the setting of ras infected ICD. Would extracted the device to help with source control. It is important to rule out spinal infection in the setting of persistent bacteremia and back pain Back pain ICM/HFrEF s/p ICD High-risk medication use - Daptomycin is a high risk medication that requires monitoring of CK at baseline and weekly due to risk of rhabdomyolysis. Estimated Creatinine Clearance: 111 mL/min (by C-G formula based on SCr of 0.76 mg/dL). Recommendations Diagnostics: KANDY for further evaluation MRI spines with and without contrast Follow-up pending blood cultures Check CK level Therapeutics: Recommend device extraction for source control stop IV vancomycin Start IV daptomycin 8 mg/kg daily ([id number]) Isolation: standard Discussed with the primary team. Patient was staffed with Dr. Hang Zhang ID Team 3 (SOT) Will continue to follow with you. Thank you for allowing us to participate in the care of this patient. If you have any questions, please reach out to the ID Team 3 (SOT) pager found in QGenda below. The ID Team pagers are available - Saturday through Saturday from 7:00 am to 06:00 pm. For emergent or after hour issues, please call the on-call ID/1st call Fellow pager. [facility] Infectious Disease - Angel Stein [facility] Infectious Disease Fellow, PGY-5 Division of Infectious Diseases Cosigned by Hang Zhang DO at 12/24/2024 3:56 PM EDT Associated attestation - Hang Zhang DO - 12/24/2024 3:56 PM EDT I saw and independently examined the patient on 12/24/2024. I agree with the history, examination, and medical decision making as noted by Dr. Stein. Pt with recent MRSA Bacteremia at OSH discharged on vanc via PICC who is admitted with relapsed bacterema. Has retained CIED that will need to come out. Having some back pain, needs full spine MRI. Can switch vanc to dapto (perhaps failed because of low troughs in outpt setting). Repeat blood cultures. Needs valves visualized + device out, appreciate cardiology and EP help on timing. Please message via Platter secure chat or page with any questions or concerns. Hang Zhang DO Student Admissions Clerk Division of Infectious Disease documented in this encounter [facility] 01-11-2025 Hospital course Narrative Images from the original note were not included. Discharge Summary Name: Michelle Jules Age: 59 y.o. Birthday: 1965 Admit Date: 12/23/2024 11:14 PM Discharge Date: 01/11/2025 Discharge Unit: [facility] Admission Information Admitting Physician: Wallace Lugo MD Discharge Information Discharge Physician: John Castro MD Problem List Active Hospital Problems Diagnosis MRSA bacteremia Resolved Hospital Problems No resolved problems to display. Brief Summary of Hospital Course for Discharge Summary: Michelle Jules is a 59 y.o. female with a PMH significant for ICM/HFrEF, s/p ICD, HTN, HLD, Type II DM with chronic neuropathy, obesity, gout, RLS, allergic rhinitis and recent MRSA bacteremia on vacomycin who presented to the [facility] ED on 12/20/24 with c/o recurrent fevers, N/V and lumbar back pain. Tm 102.1. She had been receiving vancomycin via PICC line (EOT 01/02) but a couple days prior to arrival she was having trouble with the line and did not receive some doses of her antibiotic. ID was consulted at [facility] and blood cultures from 12/20/24 revealed MRSA. Her vancomycin was continued. She was transferred for consideration of device lead extraction. Pt originally diagnosed with MRSA bacteremia at an [facility] and started on IV vanco and DC with PICC with EOT planned for 01/02/2025. She represented to [facility] with fever, N/V and had missed some of her doses of Vanco 2/2 issues with her PICC line. She had a KANDY at the [facility] which she reports as negative during her original admission. When she presented again, they repeated blood cultures which again came back positive for MRSA. She was then transferred to [facility] to evaluate need for device extraction. Her Vancomycin was stopped on 12/24 and she was started on Daptomycin. She also had concerns of back pain with her new presentation and underwent imagining of her spine to rule out infectious source. She originally had CT spine as her Atrial lead was not MRI compatible which did not reveal anything concerning for infection. She then had her device and leads extracted on 12/29/2024 by EP and all repeat cultures were negative to date. On 01/01 she had MRI of her cervical/thoracic/lumbar spine concerning for leptomeningeal enhancement as the CT scans did not include the lumbar areas. She then underwent LP which was unremarkable except for mildly elevated protein, suspect related to bacteremia and cultures remain negative to date. Neurology was consulted and a brain MRI was completed which was negative for infection. On 01/08 her CK was noted to be 12, 364 and her Daptomycin was stopped and she was placed on Linezolid for the remainder of her hospitalization. Outpatient Dalbavancin was arranged and approved prior to DC and she will receive 2 doses a week apart as an outpatient. These will be 01/12 and 01/19 at 1330 at [facility]. She remained inpatient and was given fluid resuscitation for her rhabdomyolysis likely from her Daptomycin until her CK decreased to 3577. [place] [address]. Her ALT and AST also elevated with peaks ALT of 146 and AST of 349 and day of discharge were ALT 125 and AST 152. Her urine remained yellow and her renal function did not bump despite a urine myoglobin of 1384. She was advised to have labs checked 1 week after discharge and to call with any issues or concerns. From an EP perspective, she had successful RESISTOR INSPECTOR-D extraction in setting of MRSA bacteremia last week. Has been doing well, site well healing. Has not required pacing since. 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 No arrhythmia or pauses on tele. LVEF 60-65% on echo. Based on this we discussed options for re-implant at this time vs later as outpatient and patient in agreement to do so once risk of infection is lowered. She follows with local cardiology which is fine for this purpose, where she can have a repeat echocardiogram and if otherwise no infection risk can have the discussion to re-implant a device (she was a RESISTOR INSPECTOR responder with LVEF improvement to normal values on most recent imaging). Okay for discharge from EP perspective. Ambulatory referral to EP at discharge so she can meet with them following echo if needed for device implant. Chronic Medical Conditions: Lumbar spine and bilateral shoulder pain - Improved. History of chronic lumbar pain secondary to arthritis. Pain was worse on admission. CT cervical/thoracic/lumbar spine showed severe degenerative disease. MRI cervical/thoracic/lumbar spine showed moderate foraminal narrowing of L4-L5 and multilevel spondylotic changes. History of arthritis. Bilateral shoulder x-rays showed acromio joint narrowing and osteophytosis. Continue PRN tylenol, gabapentin and lidocaine patches Chronic systolic heart failure (HFrecEF) / non-ischemic cardiomyopathy NYHA class II, ACC/AHA C EF 60-65%, LVIDD: 5.7 GDMT: Diuresis: none (pt auto diuresing) Beta blockade: decreased to 12.5 mg BID 01/09/25 for bradycardia ACEi / ARB / ARNI: Entresto 24/26 mg Q 12 hours MRA: Spironolactone 25 mg daily SGLT2i: None--can consider in outpt follow up if not cost prohibitive Vasodilator: N/A Inotrope: N/A ICD / RESISTOR INSPECTOR: RESISTOR INSPECTOR-D removed 12/29/2024. Per EP, device re-implantation outpatient as discussed above. Hypertensive Heart Disease: Medications as discussed above Hyperlipidemia: Hold Atorvastatin 10 mg daily held in setting of transaminitis and rhabdomyolysis -- can re-evaluate restarting as an outpatient 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: No acute transfusion needs, Not a candidate for IV iron infusions Obesity (Body mass index is 36.64 kg/m .; Class I= 30-34.9, Class II= 35-39.9, Class III= > 40; <19 -consider cardiac cachexia) Patient given education regarding Lifestyle Modification Secondary to Excess Caloric intake and decreased Caloric Expenditure Diabetes Mellitus Type 2 with peripheral neuropathy: Seen in consult by Endocrinology and outpatient plan noted below: Home regimen: glargine 40 units bid plus sliding scale with weekly trulicity Resume Trulicity SGLT2i: could consider as eGFR is adequate Discharge Diet: DIET CARB CONTROLLED- 60 Grams per Meal Patient Education: Your target blood sugar is 80-130 mg/dl fasting and under 180 mg/dl nonfasting. Basal/Mealtime - Basal: U100 Glargine PENS with needles, dose 50 units every 12 hours. No Titration. (Increased from 40 units Q 12 hours) - Mealtime time insulin: FixedvsFlexible: Fixed: U100 Lispro Pens with Pen Lackey MAX DAILY DOSE 150 units--pt given U200 as she already had this at home; changed from 50 unit TID) 30 Units for Large Meal or 15 Units for Small Meal PLUS Correction Scale Subcutaneous every meal and at bedtime Correction Scale: Custom: 150-200 = 3 unit, 201-250 = 6 units, 251-300 = 9 units, 301-350 = 12 units, 351-400 = 15 units Other Diabetes Supplies: Glucagon (Baqsimi Two Pack) 3 MG/DOSE Powder Follow up needed: PCP within 1- 2 weeks or local plaster die maker Day of Discharge Assessment: Vitals: 01/11/25 0751 01/11/25 1037 01/11/25 1041 01/11/25 1102 BP: 131/63 111/64 115/56 121/59 Pulse: 55 76 90 68 Resp: 16 18 Temp: 97.7 degrees F (36.5 degrees C) 97.9 degrees F (36.6 degrees C) TempSrc: Oral Oral SpO2: 95% 96% Weight: Height: General: alert, no distress, no slurred speech or respiratory distress Neurologic: alert and oriented to person, place, time and situation, RICHI X 4 HEENT: EOMI, Atraumatic Neck: Midline trachea, no JVD CV: regular rate and rhythm, S1, S2, chest with healing incision to left upper chest where device removed Respiratory: lungs clear to auscultation bilaterally, symmetric chest rise, no increased work of breathing Abdomen: soft, non-tender, no palpable organomegaly, + bowel sounds Extremities: no peripheral edema, radial and DP pulses normal and symmetric Skin: warm, dry, no rashes Summary of last selected lab results and date obtained: Lab Results Component Value Date WBC 5.57 01/11/2025 HGB 8.9 (L) 01/11/2025 HCT 27.9 (L) 01/11/2025 PLATELET 248 01/11/2025 MCV 89.1 01/11/2025 Lab Results Component Value Date SODIUM 135 01/11/2025 POTASSIUM 4.0 01/11/2025 CHLORIDE 104 01/11/2025 CO2 25 01/11/2025 BUN 9 01/11/2025 CREATSERUM 0.83 01/11/2025 GLUCOSE 225 (H) 01/11/2025 Lab Results Component Value Date ALT 125 (H) 01/11/2025 AST 152 (H) 01/11/2025 ALKPHOS 94 01/11/2025 BILITOTAL 0.3 01/11/2025 BILIDIRECT <0.1 01/11/2025 Discharge Orders AMB REFERRAL TO CARDIAC REHAB Activity as tolerated Call MD for: temperature > 100.4 Call MD for: severe uncontrolled pain Call MD for: persistent nausea or vomiting Call MD for: redness, tenderness or signs of infection (pain, swelling, redness, odor or green/yellow discharge around incision site) Call MD for: difficulty breathing, headache or visual disturbances Call MD for: hives Call MD for: persistent dizziness or light-headedness Call MD for: extreme fatigue Call MD at the phone number provided on your After Visit Summary at discharge Call MD for: Recurrent Low Blood Sugar Call MD for: Recurrent High Blood Sugar Glucose Management CONSISTENT Carbohydrate Diet - Diabetic with Restrictions Primary Care Provider - Call for an appointment for 2 weeks after discharge. Current Outpatient Meds: Medication List for when you go home START taking these medications Morning Afternoon Evening Bedtime As Needed Baqsimi Two Pack 3 MG/DOSE POWD Use as needed for severe low blood sugar (Hypoglycemia) Generic drug: Glucagon Use as needed for severe low blood sugar (Hypoglycemia) dalbavancin HCl 500 MG SOLR 1,500 mg IV x 2 doses, one week apart. Please infuse each dose over 60 minutes. Dx: A49.02. CPT code: 89153. Commonly known as: DALVANCE 1,500 mg IV x 2 doses, one week apart. Please infuse each dose over 60 minutes. Dx: A49.02. CPT code: 54152. lidocaine 4 % patch Place 2 patches on skin every 24 hours. Max of 12 hours of application then remove.Apply to both shoulders. Last time this was given: 1 patch on January 09, 2025 9:49 AM Start taking on: January 12, 2025 Wait until Jan 12 Pen Lackey 32G X 4 MM [facility] Use new needle for each insulin injection. Use new needle for each insulin injection. CHANGE how you take these medications Morning Afternoon Evening Bedtime As Needed carveDILOL 25 MG TABS Take 0.5 tablets by mouth 2 times daily. Commonly known as: Coreg What changed: The quantity you have reported taking of this medication has changed Last time this was given: 12.5 mg on January 11, 2025 9:46 AM 0.5 tablets 0.5 tablets Insulin Lispro 200 UNIT/ML SOPN injection 30 Units for Large Meal or 15 Units for Small Meal PLUS Correction Scale Subcutaneous every meal and at bedtime Doctor's comments: Custom: Custom: 150-200 = 3 unit, 201-250 = 6 units, 251-300 = 9 units, 301-350 = 12 units, 351-400 = 15 units What changed: The quantity you have reported taking of this medication has changed How you take your medication has changed How often you have reported taking this medication has changed additional instructions Last time this was given: Ask your nurse or doctor 30 Units for Large Meal or 15 Units for Small Meal PLUS Correction Scale Subcutaneous every meal and at bedtime Lantus SoloStar 100 UNIT/ML SOPN injection Inject 50 Units under the skin every 12 hours. What changed: The quantity you have reported taking of this medication has changed How often you have reported taking this medication has changed Last time this was given: Ask your nurse or doctor Generic drug: insulin glargine 50 Units 50 Units CONTINUE taking these medications Morning Afternoon Evening Bedtime As Needed Cetirizine 10 MG TABS Take 1 tablet by mouth daily. Commonly known as: ZyrTEC 1 tablet DULoxetine [address] capsule DR Take 1 capsule by mouth 2 times daily. Commonly known as: CYMBALTA 1 capsule 1 capsule Gabapentin 300 MG CAPS Take 1 capsule by mouth daily. Commonly known as: NEURONTIN Last time this was given: 300 mg on January 11, 2025 9:46 AM 1 capsule magnesium oxide 400 MG TABS Take 1 tablet by mouth 2 times daily. Commonly known as: MAG-OX Last time this was given: Ask your nurse or doctor 1 tablet 1 tablet nystatin [id number] unit/gm POWD Apply 1 Application topically every 12 hours as needed. Commonly known as: NYSTOP;MYCOSTATIN Last time this was given: 1 Application on January 08, 2025 7:54 AM 1 Application Pantoprazole [address] tablet DR Take 1 tablet by mouth 2 times daily. Commonly known as: PROTONIX Last time this was given: 40 mg on January 11, 2025 9:55 AM 1 tablet 1 tablet rOPINIRole 0.5 MG TABS Take 1 tablet by mouth at bedtime. Commonly known as: REQUIP Last time this was given: 0.5 mg on January 10, 2025 9:40 PM 1 tablet sacubitril-valsartan 24-26 MG TABS Take 1 tablet by mouth 2 times daily. Commonly known as: ENTRESTO Last time this was given: 1 tablet on January 11, 2025 9:46 AM 1 tablet 1 tablet Spironolactone 25 MG TABS take 1 Tab by mouth daily. Commonly known as: Aldactone Last time this was given: 25 mg on January 11, 2025 9:46 AM 1 tablet Trulicity 3 MG/0.5ML SOAJ Inject 3 mg under the skin once a week. Generic drug: Dulaglutide Inject 3 mg under the skin once a week. STOP taking these medications Atorvastatin 10 MG TABS Commonly known as: LIPITOR Follow-up: Other [facility] [address] [facility] [id number] Follow up You've been referred to cardiac rehab, Please call if you have any questions [facility] [address] [facility] [id number] Follow up PLease go to [facility] for IV infusion of Dalbavancin on 01/11 and 01/18 at 13:30. Cosigned by John Castro MD at 01/11/2025 4:01 PM EDT Associated attestation - John Castro MD - 01/11/2025 4:01 PM EDT I saw and personally examined the patient on the day of discharge with the MIRACLE on rounds. I discussed the findings and therapeutic plan with the MIRACLE. I agree with the history, examination, and medical decision making as noted by the MIRACLE. In total, 35 minutes was spent on discharge planning. 59 y.o. female with a PMH significant for ICM/HFrEF, s/p ICD, HTN, HLD, Type II DM with chronic neuropathy, obesity, gout, RLS, allergic rhinitis and recent MRSA bacteremia on vacomycin who presented to the [facility] ED on 12/20/24 with c/o recurrent fevers, N/V and lumbar back pain. Her course was notable for removal of ICD on 12/29/24 and development of rhabdomyolysis in setting of daptomycin use, with improvement prior to discharge. She will follow-up with EP team to discussion scheduling of physiological-pacing PPM after completion of Abx in late-January 2025. She will follow-up with her local machinery mover in [facility], as well as with [facility] AHF team to facilitate transition of care from hospital to home. John Castro MD Advanced Heart Failure and Cardiac Transplant Program [facility] documented in this encounter [facility] 01-11-2025 History of Present illness Narrative Care Management Discharge Note Selected Continued Care - Admitted Since 12/23/2024 No services have been selected for the patient. Patient medically stable for discharge per physician/medical team. Patient/[employer] remain in agreement with the discharge plan. Michelle Mclain RN, BSN Clinical Cell Room Supervisor Inpatient Cardiopulmonary Rehab Follow Up Visit AND Activity Session Completed. RN approved, as tolerated, and patient agreeable to visit. Patient reports feeling okay without complaints. Activity Session Vitals: 01/11/25 1037 01/11/25 1041 Vital Signs Pulse (Heart Rate) 76 (pre amb) 90 (post amb) Heart Rate Source Monitor Monitor BP 111/64 115/56 MAP (mmHg) 82 mmHg 80 mmHg BP Method Automatic Automatic BP Location Right arm Right arm BP Position Lying Sitting O2 Device room air room air Activity/Level of Assistance Amb in mendoza/independent Ambulation Distance (feet) 250 Symptoms Noted During/After Activity none Positioning Seated in chair, call light within reach telemetry all intact upon leaving the room Activity session details: Patient agreeable and tolerated ambulation in mendoza. She did not report to have any signs or symptoms at this time. She repeatedly stated I want to go home. RN notified/aware. Encouraged continued ambulation and discussed appropriate activity progression. Discharge education reviewed with the patient. Patient s questions/concerns addressed. Mariah Ferreira, [phone]) IP Cardiopulmonary & Vascular Rehab Heart Failure 2/Advanced Heart Failure Progress Note Provider: Bekah Ann APRN-CAROL IDENTIFYING INFORMATION PATIENT: Michelle Jules, 1965, [id number] LOS: 18 Code Status: Full Code Daily Plan: Plan of Care for Today: - CK trending down but remains elevated, will give 1L IV fluid. Monitor CK daily. - Repeat CK and CHEM6 ordered for 1800, if CK still elevated will give additional fluids - Continue Linezolid 600 mg PO BID through 01/10/25, approved for dalbavancin 1500 mg IV every 7 days x 2 doses (first on 01/11/25, second on 01/18/25). If still admitted, will need to contact OPAT team to reschedule dalbavancin infusion appointments. - OK to discharge from EP perspective. Device reimplant can be completed outpatient with local machinery mover if repeat echocardiogram is not concerning for infection. - Discharge TBD pending further labs and need for fluid resuscitation Subjective/Interval Note Overnight Issues: No acute overnight events. Did not sleep well overnight, anxious to go home. Has been ambulating in hallway frequently. I/O: UO 4000 ml, Net -1512 ml/24 hr, Net IO Since Admission: -20,964.09 mL [01/10/25 0704] Daily Weight: Admission weight: 118.7 kg Current weight: Weight: 112.5 kg (248 lb 1.6 oz) (standing weight) Diet: DIET HEART HEALTHY - 4 GM SODIUM Fluid Restriction 2000mL (1000mL Nursing, 1000mL Nutrition) Telemetry personally reviewed: SB/NSR DVT Prophylaxis: Lovenox Activity: Cardiac rehab and Occupational Therapy Fall Risk: Assessed for patient fall risk and discussed safety measures during rounding. Hospital Course: Michelle Jules is a 59 y.o. female with a PMH significant for ICM/HFrEF, s/p ICD, HTN, HLD, Type II DM with chronic neuropathy, obesity, gout, RLS, allergic rhinitis and recent MRSA bacteremia on vacomycin who presented to the [facility] ED on 12/20/24 with c/o recurrent fevers, N/V and lumbar back pain. Tm 102.1. She had been receiving vancomycin via PICC line (EOT 01/02) but the last couple days she was having trouble with the line and did not receive some doses of her antibiotic. ID was consulted at [facility] and blood cultures from 12/20/24 revealed MRSA. Her vancomycin was continued. She was transferred for consideration of device lead extraction. Primary Diagnosis: MRSA bacteremia (with sepsis 11/2024) KANDY with no evidence of vegetation 12/25/24. Discharged on vancomycin with EOT 01/02/25. 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 Admitted to OSH on 12/20/24 with N/V, fever, and lumbar back pain. Concern for line infection vs pacer related endocarditis vs lumbar infection. 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 Neurology was also consulted. 12/20/24: BC x 2 at [facility] positive for MRSA 12/24/24: BC x2 negative 12/24/24: Vancomycin stopped 12/28/24: CT chest without suspicious consolidative or nodular opacity in the lungs, did show extensive multivevssel coronary artery calcifications 12/28/24: CT cervical/thoracic spine without evidence of acute infection involving the cervical spine and thoracic spine. 12/29/24: device removed, culture +MRSA 12/30/24: BC x2 +MRSA 12/31, 01/02, 01/03, 01/04/25: all BC negative 01/01/25: MRI cervical/thoracic/lumbar spine concerning for leptomeningeal enhancement 01/04/25: LP unremarkable except for mildly elevated protein, suspect related to bacteremia 01/06/25: MRI brain negative for intracranial infection 01/08/25: Daptomycin stopped for CK 12,364 and linezolid 600 mg PO Q12H started in anticipation of starting dalbavancin 1500 mg IV every 7 days x2 doses outpatient (first on 01/11/25, second on 01/18/25) per ID recommendations. - ID recommendations: ok to replant cardiac device, treat with dalbavancin 1500 mg on days 1 and 8 at [facility] - EP recommendations: Re-implant as outpatient once risk of infection is lowered. 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 - Neurology recommendations: Outpatient follow up in 6-8 weeks in resident clinic for follow up neuro examination, no additional testing recommended. Lab Results Component Value Date WBC 5.74 01/10/2025 WBC 6.41 01/09/2025 Rhabdomyolysis Elevated CK 12,364 noted 01/08/25, most likely related to daptomycin. Daptomycin stopped, linezolid 600 mg BID started in anticipation of dalbavancin 1500 mg IV every 7 days x2 doses outpatient (first on 01/11/25, second on 01/18/25) per ID recommendations. Received a total of 2L IV fluids 01/10/28 for CK 14,574 >> 12,340. - CK 10,059 this morning, will give an additional 1L IV fluids at 100 ml/hr and recheck labs at 1800 - Urine myoglobin pending Lab Results Component Value Date CPK 10,059 () 01/10/2025 CPK 12,340 () 01/09/2025 CPK 14,574 () 01/09/2025 Acute transaminitis Noted 01/08/25, most likely related to daptomycin - ALT stable (peak 147), AST trending down (peak 349) - Daily LFT until peak Lab Results Component Value Date ALT 147 (H) 01/10/2025 AST 257 (H) 01/10/2025 ALKPHOS 97 01/10/2025 BILITOTAL 0.3 01/10/2025 BILIDIRECT <0.1 01/10/2025 Lumbar spine pain - improved History of chronic lumbar pain secondary to arthritis. Pain was worse on admission. CT cervical/thoracic/lumbar spine showed severe degenerative disease. MRI cervical/thoracic/lumbar spine showed moderate foraminal narrowing of L4-L5 and multilevel spondylotic changes. - PRN tylenol, oxycodone, lidocaine patch Bilateral shoulder pain - improved History of arthritis. Bilateral shoulder x-rays showed acromio joint narrowing and osteophytosis. - PRN tylenol, oxycodone, lidocaine patch Chronic systolic heart failure (HFrEF) / non-ischemic cardiomyopathy NYHA class II, ACC/AHA C EF 60-65%, LVIDD: 5.7 Lab Results Component Value Date NTERMINALPRO 395 (H) 12/23/2024 Diuresis: none Beta blockade: Coreg 25 mg Q 12 hours --> decreased to 12.5 mg BID 01/09/25 for bradycardia ACEi / ARB / ARNI: Entresto 24/26 mg BID --> continue MRA: Spironolactone 25 mg daily --> continue SGLT2i: None Vasodilator: N/A Inotrope: N/A ICD / RESISTOR INSPECTOR: RESISTOR INSPECTOR-D removed 12/29/2024. Per EP, device re-implantation outpatient as discussed above. - Heart Healthy 4 gram Na diet with 2L fluid restriction - Weigh daily - Strict I/O Hypertensive Heart Disease - Medications as discussed above BP Readings from Last 3 Encounters: 01/10/25 120/62 01/28/14 100/57 10/05/13 118/74 Hyperlipidemia - Atorvastatin 10 mg daily held in setting of transaminitis Lab Results Component Value Date CHOLESTEROL 124 12/23/2024 TRIG 138 12/23/2024 HDL 26 (L) 12/23/2024 LDLCALC 70 12/23/2024 Electrolyte Monitoring - Maintain K > 4, Mg > 2 - Replete PRN - Daily CHEM - Na Lab Results Component Value Date SODIUM 141 01/10/2025 SODIUM 135 01/09/2025 SODIUM 140 01/09/2025 - K+ Lab Results Component Value Date POTASSIUM 3.7 01/10/2025 POTASSIUM 4.3 01/09/2025 POTASSIUM 4.2 01/09/2025 - Cl Lab Results Component Value Date CHLORIDE 107 01/10/2025 CHLORIDE 104 01/09/2025 CHLORIDE 107 01/09/2025 - Mg Lab Results Component Value Date MAGNESIUM 1.9 01/10/2025 MAGNESIUM 2.1 01/09/2025 MAGNESIUM 2.0 01/08/2025 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 - No acute transfusion needs - Not a candidate for IV iron infusions - Monitor CBC Lab Results Component Value Date HGB 9.1 (L) 01/10/2025 HGB 9.5 (L) 01/09/2025 HGB 9.2 (L) 01/08/2025 Lab Results Component Value Date IRON 65 12/23/2024 FERRITIN 63.6 12/23/2024 Lab Results Component Value Date TRANSFERRIN 268 12/23/2024 Lab Results Component Value Date TIBC 335 12/23/2024 Lab Results Component Value Date IRONSATURAT 19 (L) 12/23/2024 Obesity (Body mass index is 36.64 kg/m .; Class I= 30-34.9, Class II= 35-39.9, Class III= > 40; <19 -consider cardiac cachexia) Patient given education regarding Lifestyle Modification Secondary to Excess Caloric intake and decreased Caloric Expenditure Diabetes Mellitus Type 2 with peripheral neuropathy Home regimen: glargine 40 units bid plus sliding scale with weekly tresteban Alonzo following and guiding hyperglycemia treatment, refer to most recent note - Continue home gabapentin 300 mg daily Recent Labs 01/09/25 1136 01/09/25 1520 01/09/25 1604 01/09/25 2324 01/10/25 0301 01/10/25 0302 GLUCOSE 186* 72 110 206* 99 98 Lab Results Component Value Date HGBA1C 10.8 (H) 12/23/2024 Complexity. Obesity, Class II Body mass index is 36.64 kg/m . - Follow with PCP for dietary and lifestyle modifications. Wound Documentation Pacemaker/Defibrillator Site 12/29/24 1400 (Active) Placement Date/Time: 12/29/24 1400 Location: left upper chest Objective: Temp: [97.4 F (36.3 C)-98.4 F (36.9 C)] 97.4 F (36.3 C) Pulse (Heart Rate): [57-80] 75 Resp Rate: [14-20] 20 BP: (110-142)/(57-74) 120/62 O2 Sat (%): [95 %-99 %] 98 % Weight: [112.5 kg (248 lb 1.6 oz)] 112.5 kg (248 lb 1.6 oz) Body mass index is 36.64 kg/m . Physical Exam Constitutional: No distress. Neck: No JVD present. Cardiovascular: Regular rhythm, S1 normal and S2 normal. Bradycardia present. Pulses: Radial pulses are 1+ on the right side and 1+ on the left side. Dorsalis pedis pulses are 1+ on the right side and 1+ on the left side. Posterior tibial pulses are 1+ on the right side and 1+ on the left side. Warm and dry Pulmonary/Chest: Effort normal and breath sounds normal. Tenderness is present which mimics chest pain. Subclavian PPM extraction site continues to be tender Abdominal: Soft. Bowel sounds are normal. She exhibits no distension. Musculoskeletal: General: No edema. Cervical back: Normal range of motion. Neurological: She is alert and oriented to person, place, and time. Skin: Skin is warm and dry. Left subclavian incision open to air, well approximated without drainage or erythema, some surrounding ecchymosis persists, hematoma underlying incision persists Patient Lines/Drains/Airways Status Active Lines, Drains, Airways, & Wound Overview Name Placement date Placement time Site Days Peripheral IV Line - Single Lumen 12/26/24 1527 blue cephalic vein (lateral side of arm), left 22 gauge 12/26/24 1527 -- 14 Peripheral IV Line - Single Lumen 12/29/24 0924 forearm, anterior, left 18 gauge;1 07/18 in length 12/29/24 0924 -- 11 Pacemaker/Defibrillator Site 12/29/24 1400 12/29/24 1400 -- 11 Data Review: ECHOCARDIOGRAM 01/28/2014 Transthoracic Echocardiogram: Conclusions 1. Normal left ventricular size with mod-severely reduced systolic function, LVEF 25-30%. 2. Normal right ventricular size with mild-mod reduced systolic function. 3. Wire in RA/RV. 4. No significant valvular heart disease. 5. Compared to the study from 07/2013 there has been mild improvement in systolic function. ECHOCARDIOGRAM 12/25/2024 KANDY: Interpretation Summary Technically challenging study, sub-optimal image quality, even with the use of contrast. Left Ventricle: Chamber size is normal. Normal wall thickness. Normal global systolic function. Regional wall motion is normal regional wall motion not well visualized. Ejection fraction is normal (60 - 65%). Diastolic function is normal. Right Ventricle: Right ventricle not well visualized. Chamber size is mildly enlarged. Systolic function is normal. Device wire is present. Valves not well visualized overall, but no overt vegetations noted on limited assessment. No hemodynamically significant valvular disease. No echo/Doppler evidence for pulmonary hypertension. Estimated right ventricular systolic pressure is 29 mmHg. Small pericardial effusion adjacent to the right ventricle without evidence of tamponade. Left Heart Measurements LV - Systole LVIDD 5.7 cm IVS 0.91 cm LVIDS 5 cm PW 0.86 cm LV RWT 0.3 LV Mass Index 83.3 g/m2 LV EDV BP 124 mL LV ESV BP 46 mL BP EF 63 % LV stroke volume BP (ml) 78 mL LV stroke volume index BP 33.62 mL/m2 LV - Diastole MV pk E sirena 1 m/s MV pk A sirena 0.8 m/s E/A ratio 1.25 e' septal pk sirena 0.06 m/s e' lateral pk sirena 0.09 m/s Avg e' pk sirena 0.08 m/s E/e' septal ratio 16.67 E/e' lateral ratio 11.11 Avg E/e' ratio 13.89 LV - HCM AV LVOT peak gradient 3 mmHg Left Atrium LA ESV SP 4CH (MOD) 52 mL LA ESV SP 2CH (MOD) 44 mL LA ESV BP (MOD) index 21 mL/m2 Right Heart Measurements RV - 2D RV basal diam 4.4 cm RV mid diam 4.1 cm RV long diam 7.6 cm RV - Doppler RV S' 2.1 cm/s Right Atrium RA vol index 4CH (MOD) 27.16 mL/m2 EST RAP 8 mmHg RA area 4CH (MOD) [address] Chest w/o Contrast IMPRESSION: 1. No suspicious consolidative or nodular opacity in the lungs. 2. Extensive multivessel coronary artery calcifications. w/wo Contrast C/T/L IMPRESSION: Scattered leptomeningeal enhancement along the spinal cord and involving the cauda equina given the clinical history, this is suggestive of an infectious etiology such as meningitis although is nonspecific. In the absence of a known history of cancer, leptomeningeal carcinomatosis is unlikely. - No evidence of spondylodiscitis/osteomyelitis - Multilevel spondylotic change as further detailed in the above report. I personally viewed and interpreted these images and I have reviewed and approved this report. Head IMPRESSION: No acute intracranial abnormality or mass effect. Brain w/wo Contrast IMPRESSION: Within normal limits. No finding to suggest intracranial infection. carveDILOL 25 mg Oral Q12H enoxaparin 40 mg Subcutaneous Daily Gabapentin 300 mg Oral Daily insulin glargine 50 Units Subcutaneous Q12HNS Insulin lispro 0-6 Units Subcutaneous Q24H Insulin lispro Subcutaneous 4x daily w/meals, HS lidocaine 1 patch Transdermal Q24H lidocaine 1 patch Transdermal Q24H Linezolid 600 mg Oral Q12H Loratadine 10 mg Oral Daily magnesium oxide 400 mg Oral BID Pantoprazole 40 mg Oral Daily rOPINIRole 0.5 mg Oral QHS sacubitril-valsartan 1 tablet Oral Q12H Spironolactone 25 mg Oral Daily Discussed with team on rounds. This plan will be discussed with Dr. Moe Bernard MD, the attending needle control cheniller. DISCHARGE PLANNING: Dispo/Debility Home Follow Up Appointments: No Follow Up needed in Heart Failure Clinic Follow up in 6-8 weeks with Neurology resident clinic Follow up with local EP for device replacement Please Ensure Follow Up Labs / Testing are scheduled: TBD [facility]O Palmer HF2/Advanced Heart Failure Phone: [phone] Cosigned by Moe Bernard MD at 01/10/2025 3:40 PM EDT Associated attestation - Moe Bernard MD - 01/10/2025 3:40 PM EDT I saw and personally examined the patient today with the advanced practice provider on rounds. I provided a substantive portion of the care for this patient. I personally performed all aspects of the medical decision making for this encounter. I agree with the history, examination, and medical decision making as noted by the advanced practice provider except as documented. Briefly: 59 y.o. female with a PMH significant for ICM/HFrEF, s/p ICD, HTN, HLD, Type II DM with chronic neuropathy, obesity, gout, RLS, allergic rhinitis and recent MRSA bacteremia on vacomycin who presented to the [facility] ED on 12/20/24 with c/o recurrent fevers, N/V and lumbar back pain #MRSA bacteremia: RESISTOR INSPECTOR device removed. Cultures cleared. MRI spine with leptomeningeal enhancement. LP on 01/04 with NGTD. Continue abx per ID team, currently on linezolid. MRI brain unrevealing. Per ID, leptomeningeal enhancement likely related to infection. #HTN: Continue coreg, entresto, fahad. #Chronic systolic heart failure (recovered): Continue coreg, entresto, fahad. Device replacement as an outpatient now per EP team. Remains net negative despite IVF without diuretics #Rhabdo: Dapto stopped on 01/08. CK remains elevated although improving today. Continue IVF today. Trend liver enzymes, Cr and CK levels. If CK improves tomorrow would monitor for a day off of fluids to ensure CK continues to downtrend. Possible discharge Saturday Moe Bernard MD Advanced Heart Failure/Transplant Cardiology Heart Failure 2/Advanced Heart Failure Progress Note Provider: Bekah Ann APRN-CAROL IDENTIFYING INFORMATION PATIENT: Michelle Jules, 1965, [id number] LOS: 17 Code Status: Full Code Daily Plan: Plan of Care for Today: - CK remains elevated despite 1.5L IV fluids yesterday, will give 1L bolus at 100 ml/hr. Continue to monitor CK daily. - Repeat CK and CHEM6 ordered for 1800, if CK still elevated will give additional fluids - Decrease carvedilol from 25 to 12.5 mg BID for bradycardia - Continue Linezolid 600 mg PO BID through 01/10/25, approved for dalbavancin 1500 mg IV every 7 days x 2 doses (first on 01/11/25, second on 01/18/25). If still admitted, will need to contact OPAT team to reschedule dalbavancin infusion appointments. - Discharge pending further labs and need for fluid resuscitation - OK to discharge from EP perspective. Device reimplant can be completed outpatient with local machinery mover if repeat echocardiogram is not concerning for infection. Subjective/Interval Note Overnight Issues: No acute overnight events. Feels well this morning. Continues to note bilateral shoulder discomfort but denies acute pain at PPM extraction site. Has been ambulating in the hallway three times per day. I/O: UO 3560 ml, Net -283 ml/24 hr, Net IO Since Admission: -19,452.09 mL [01/09/25 0728] Daily Weight: Admission weight: 118.7 kg Current weight: Weight: 112.8 kg (248 lb 11.2 oz) (standing weight) Diet: DIET HEART HEALTHY - 4 GM SODIUM Fluid Restriction 2000mL (1000mL Nursing, 1000mL Nutrition) Telemetry personally reviewed: SB/SR DVT Prophylaxis: Lovenox Activity: Cardiac rehab and Occupational Therapy Fall Risk: Assessed for patient fall risk and discussed safety measures during rounding. Hospital Course: Michelle Jules is a 59 y.o. female with a PMH significant for ICM/HFrEF, s/p ICD, HTN, HLD, Type II DM with chronic neuropathy, obesity, gout, RLS, allergic rhinitis and recent MRSA bacteremia on vacomycin who presented to the [facility] ED on 12/20/24 with c/o recurrent fevers, N/V and lumbar back pain. Tm 102.1. She had been receiving vancomycin via PICC line (EOT 01/02) but the last couple days she was having trouble with the line and did not receive some doses of her antibiotic. ID was consulted at [facility] and blood cultures from 12/20/24 revealed MRSA. Her vancomycin was continued. She was transferred for consideration of device lead extraction. Primary Diagnosis: MRSA bacteremia (with sepsis 11/2024) KANDY with no evidence of vegetation 12/25/24. Discharged on vancomycin with EOT 01/02/25. 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 Admitted to OSH on 12/20/24 with N/V, fever, and lumbar back pain. Concern for line infection vs pacer related endocarditis vs lumbar infection. 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 Neurology was also consulted. 12/20/24: BC x 2 at [facility] positive for MRSA 12/24/24: BC x2 negative 12/24/24: Vancomycin stopped 12/28/24: CT chest without suspicious consolidative or nodular opacity in the lungs, did show extensive multivevssel coronary artery calcifications 12/28/24: CT cervical/thoracic spine without evidence of acute infection involving the cervical spine and thoracic spine. 12/29/24: device removed, culture +MRSA 12/30/24: BC x2 +MRSA 12/31, 01/02, 01/03, 01/04/25: all BC negative 01/01/25: MRI cervical/thoracic/lumbar spine concerning for leptomeningeal enhancement 01/04/25: LP unremarkable except for mildly elevated protein, suspect related to bacteremia 01/06/25: MRI brain negative for intracranial infection 01/08/25: Daptomycin stopped for CK 12,364 and linezolid 600 mg PO Q12H started in anticipation of starting dalbavancin 1500 mg IV every 7 days x2 doses outpatient (first on 01/11/25, second on 01/18/25) per ID recommendations. - ID recommendations: ok to replant cardiac device, treat with dalbavancin 1500 mg on days 1 and 8 at [facility] - EP recommendations: Re-implant as outpatient once risk of infection is lowered. 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 - Neurology recommendations: Outpatient follow up in 6-8 weeks in resident clinic for follow up neuro examination, no additional testing recommended. Lab Results Component Value Date WBC 6.41 01/09/2025 WBC 6.71 01/08/2025 Rhabdomyolysis Elevated CK 12,364 noted 01/08/25, most likely related to daptomycin. Daptomycin stopped, linezolid 600 mg BID in anticipation of starting dalbavancin 1500 mg IV every 7 days x2 doses outpatient (first on 01/11/25, second on 01/18/25) per ID recommendations. Received a total of 1.5L IV fluids 01/09/28 for CK 12,364 >> 14,975. - CK 14,574 this morning, will give an additional 1L IV fluids at 100 ml/hr and recheck labs at 1800 - UA and urine myoglobin (send out) Lab Results Component Value Date CPK 14,975 (HH) 01/08/2025 CPK 12,364 (HH) 01/08/2025 CPK 57 01/01/2025 Acute transaminitis Noted 01/08/25, most likely related to daptomycin - ALT and AST continue to trend up - Daily LFT until peak Lab Results Component Value Date ALT 146 (H) 01/09/2025 AST 349 (H) 01/09/2025 ALKPHOS 111 01/09/2025 BILITOTAL 0.3 01/09/2025 BILIDIRECT <0.1 01/09/2025 Lumbar spine pain - improved History of chronic lumbar pain secondary to arthritis. Pain was worse on admission. CT cervical/thoracic/lumbar spine showed severe degenerative disease. MRI cervical/thoracic/lumbar spine showed moderate foraminal narrowing of L4-L5 and multilevel spondylotic changes. - PRN tylenol, oxycodone Bilateral shoulder pain - improved History of arthritis. Bilateral shoulder x-rays showed acromio joint narrowing and osteophytosis. - PRN tylenol, oxycodone Chronic systolic heart failure (HFrEF) / non-ischemic cardiomyopathy NYHA class II, ACC/AHA C EF 60-65%, LVIDD: 5.7 Lab Results Component Value Date NTERMINALPRO 395 (H) 12/23/2024 Diuresis: none Beta blockade: Coreg 25 mg Q 12 hours --> decreased to 12.5 mg BID 01/09/25 for bradycardia ACEi / ARB / ARNI: Entresto 24/26 mg BID --> continue MRA: Spironolactone 25 mg daily --> continue SGLT2i: None Vasodilator: N/A Inotrope: N/A ICD / RESISTOR INSPECTOR: RESISTOR INSPECTOR-D removed 12/29/2024. Per EP, device re-implantation outpatient as discussed above. - Heart Healthy 4 gram Na diet with 2L fluid restriction - Weigh daily - Strict I/O Hypertensive Heart Disease - Medications as discussed above BP Readings from Last 3 Encounters: 01/09/25 122/73 01/28/14 100/57 10/05/13 118/74 Hyperlipidemia - Continue Atorvastatin 10 mg daily Lab Results Component Value Date CHOLESTEROL 124 12/23/2024 TRIG 138 12/23/2024 HDL 26 (L) 12/23/2024 LDLCALC 70 12/23/2024 Electrolyte Monitoring - Maintain K > 4, Mg > 2 - Replete PRN - Daily CHEM - Na Lab Results Component Value Date SODIUM 140 01/09/2025 SODIUM 136 01/08/2025 SODIUM 138 01/07/2025 - K+ Lab Results Component Value Date POTASSIUM 4.2 01/09/2025 POTASSIUM 4.1 01/08/2025 POTASSIUM 4.2 01/07/2025 - Cl Lab Results Component Value Date CHLORIDE 107 01/09/2025 CHLORIDE 103 01/08/2025 CHLORIDE 103 01/07/2025 - Mg Lab Results Component Value Date MAGNESIUM 2.1 01/09/2025 MAGNESIUM 2.0 01/08/2025 MAGNESIUM 2.1 01/07/2025 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 - No acute transfusion needs - Not a candidate for IV iron infusions - Monitor CBC Lab Results Component Value Date HGB 9.5 (L) 01/09/2025 HGB 9.2 (L) 01/08/2025 HGB 9.4 (L) 01/07/2025 Lab Results Component Value Date IRON 65 12/23/2024 FERRITIN 63.6 12/23/2024 Lab Results Component Value Date TRANSFERRIN 268 12/23/2024 Lab Results Component Value Date TIBC 335 12/23/2024 Lab Results Component Value Date IRONSATURAT 19 (L) 12/23/2024 Obesity (Body mass index is 36.73 kg/m .; Class I= 30-34.9, Class II= 35-39.9, Class III= > 40; <19 -consider cardiac cachexia) Patient given education regarding Lifestyle Modification Secondary to Excess Caloric intake and decreased Caloric Expenditure Diabetes Mellitus Type 2 with peripheral neuropathy Home regimen: glargine 40 units bid plus sliding scale with weekly trulicsusannah - Endo following and guiding hyperglycemia treatment, refer to most recent note - Continue home gabapentin 300 mg daily Recent Labs 01/08/25 1118 01/08/25 1557 01/08/25 1947 01/09/25 0256 01/09/25 0301 01/09/25 0625 GLUCOSE 212* 153 146 109 101 130 Lab Results Component Value Date HGBA1C 10.8 (H) 12/23/2024 Complexity. Obesity, Class II Body mass index is 36.73 kg/m . - Follow with PCP for dietary and lifestyle modifications. Wound Documentation Pacemaker/Defibrillator Site 12/29/24 1400 (Active) Placement Date/Time: 12/29/24 1400 Location: left upper chest Objective: Temp: [97.5 F (36.4 C)-98.8 F (37.1 C)] 98.3 F (36.8 C) Pulse (Heart Rate): [52-93] 52 Resp Rate: [16-18] 18 BP: (115-142)/(55-73) 122/73 O2 Sat (%): [95 %-99 %] 98 % Weight: [112.8 kg (248 lb 11.2 oz)] 112.8 kg (248 lb 11.2 oz) Body mass index is 36.73 kg/m . Physical Exam Constitutional: No distress. Neck: No JVD present. Cardiovascular: Regular rhythm, S1 normal and S2 normal. Bradycardia present. Pulses: Radial pulses are 2+ on the right side and 2+ on the left side. Dorsalis pedis pulses are 1+ on the right side and 1+ on the left side. Posterior tibial pulses are 1+ on the right side and 1+ on the left side. Pulmonary/Chest: Effort normal and breath sounds normal. Tenderness is present which mimics chest pain. Subclavian PPM extraction site continues to be tender Abdominal: Soft. Bowel sounds are normal. She exhibits no distension. Musculoskeletal: General: No edema. Cervical back: Normal range of motion. Neurological: She is alert and oriented to person, place, and time. Skin: Skin is warm and dry. Left subclavian incision open to air, well approximated without drainage or erythema, some surrounding ecchymosis persists, hematoma underlying incision persists Patient Lines/Drains/Airways Status Active Lines, Drains, Airways, & Wound Overview Name Placement date Placement time Site Days Peripheral IV Line - Single Lumen 12/26/24 1527 blue cephalic vein (lateral side of arm), left 22 gauge 12/26/24 1527 -- 13 Peripheral IV Line - Single Lumen 12/29/24 0924 forearm, anterior, left 18 gauge;1 1/4 in length 12/29/24 0924 -- 10 Pacemaker/Defibrillator Site 12/29/24 1400 12/29/24 1400 -- 10 Data Review: ECHOCARDIOGRAM 01/28/2014 Transthoracic Echocardiogram: Conclusions 1. Normal left ventricular size with mod-severely reduced systolic function, LVEF 25-30%. 2. Normal right ventricular size with mild-mod reduced systolic function. 3. Wire in RA/RV. 4. No significant valvular heart disease. 5. Compared to the study from 07/2013 there has been mild improvement in systolic function. ECHOCARDIOGRAM 12/25/2024 KANDY: Interpretation Summary Technically challenging study, sub-optimal image quality, even with the use of contrast. Left Ventricle: Chamber size is normal. Normal wall thickness. Normal global systolic function. Regional wall motion is normal regional wall motion not well visualized. Ejection fraction is normal (60 - 65%). Diastolic function is normal. Right Ventricle: Right ventricle not well visualized. Chamber size is mildly enlarged. Systolic function is normal. Device wire is present. Valves not well visualized overall, but no overt vegetations noted on limited assessment. No hemodynamically significant valvular disease. No echo/Doppler evidence for pulmonary hypertension. Estimated right ventricular systolic pressure is 29 mmHg. Small pericardial effusion adjacent to the right ventricle without evidence of tamponade. Left Heart Measurements LV - Systole LVIDD 5.7 cm IVS 0.91 cm LVIDS 5 cm PW 0.86 cm LV RWT 0.3 LV Mass Index 83.3 g/m2 LV EDV BP 124 mL LV ESV BP 46 mL BP EF 63 % LV stroke volume BP (ml) 78 mL LV stroke volume index BP 33.62 mL/m2 LV - Diastole MV pk E sirena 1 m/s MV pk A sirena 0.8 m/s E/A ratio 1.25 e' septal pk sirena 0.06 m/s e' lateral pk sirena 0.09 m/s Avg e' pk sirena 0.08 m/s E/e' septal ratio 16.67 E/e' lateral ratio 11.11 Avg E/e' ratio 13.89 LV - HCM AV LVOT peak gradient 3 mmHg Left Atrium LA ESV SP 4CH (MOD) 52 mL LA ESV SP 2CH (MOD) 44 mL LA ESV BP (MOD) index 21 mL/m2 Right Heart Measurements RV - 2D RV basal diam 4.4 cm RV mid diam 4.1 cm RV long diam 7.6 cm RV - Doppler RV S' 2.1 cm/s Right Atrium RA vol index 4CH (MOD) 27.16 mL/m2 EST RAP 8 mmHg RA area 4CH (MOD) [address] Chest w/o Contrast IMPRESSION: 1. No suspicious consolidative or nodular opacity in the lungs. 2. Extensive multivessel coronary artery calcifications. w/wo Contrast C/T/L IMPRESSION: Scattered leptomeningeal enhancement along the spinal cord and involving the cauda equina given the clinical history, this is suggestive of an infectious etiology such as meningitis although is nonspecific. In the absence of a known history of cancer, leptomeningeal carcinomatosis is unlikely. - No evidence of spondylodiscitis/osteomyelitis - Multilevel spondylotic change as further detailed in the above report. I personally viewed and interpreted these images and I have reviewed and approved this report. Head IMPRESSION: No acute intracranial abnormality or mass effect. Brain w/wo Contrast IMPRESSION: Within normal limits. No finding to suggest intracranial infection. [Held by provider] carveDILOL 25 mg Oral Q12H [Held by provider] enoxaparin 40 mg Subcutaneous Daily Gabapentin 300 mg Oral Daily insulin glargine 50 Units Subcutaneous Q12HNS Insulin lispro 0-6 Units Subcutaneous Q24H Insulin lispro Subcutaneous 4x daily w/meals, HS lidocaine 1 patch Transdermal Q24H lidocaine 1 patch Transdermal Q24H Linezolid 600 mg Oral Q12H Loratadine 10 mg Oral Daily magnesium oxide 400 mg Oral BID Pantoprazole 40 mg Oral Daily rOPINIRole 0.5 mg Oral QHS sacubitril-valsartan 1 tablet Oral Q12H Spironolactone 25 mg Oral Daily Discussed with team on rounds. This plan will be discussed with Dr. Moe Bernard MD, the attending needle control cheniller. DISCHARGE PLANNING: Dispo/Debility Home Follow Up Appointments: No Follow Up needed in Heart Failure Clinic Follow up in 6-8 weeks with Neurology resident clinic Follow up with local EP for device replacement Please Ensure Follow Up Labs / Testing are scheduled: TRESA Ann APRN-CAROL HF2/Advanced Heart Failure Phone: [phone] Cosigned by Moe Bernard MD at 01/09/2025 4:16 PM EDT Associated attestation - Moe Bernard MD - 01/09/2025 4:16 PM EDT I saw and personally examined the patient today with the advanced practice provider on rounds. I provided a substantive portion of the care for this patient. I personally performed all aspects of the medical decision making for this encounter. I agree with the history, examination, and medical decision making as noted by the advanced practice provider except as documented. Briefly: 59 y.o. female with a PMH significant for ICM/HFrEF, s/p ICD, HTN, HLD, Type II DM with chronic neuropathy, obesity, gout, RLS, allergic rhinitis and recent MRSA bacteremia on vacomycin who presented to the [facility] ED on 12/20/24 with c/o recurrent fevers, N/V and lumbar back pain #MRSA bacteremia: RESISTOR INSPECTOR device removed. Cultures cleared. MRI spine with leptomeningeal enhancement. LP on 01/04 with NGTD. Continue abx per ID team. MRI brain unrevealing #HTN: Continue coreg, entresto, fahad. Lower coreg for bradycardia. #Chronic systolic heart failure (recovered): Continue coreg, entresto, fahad. Device replacement as an outpatient now per EP team #Rhabdo: Dapto stopped. CK remains elevated. Continue IVF today. Trend liver enzymes, Cr and CK levels. Moe Bernard MD Advanced Heart Failure/Transplant Cardiology Heart Failure 2/Advanced Heart Failure Progress Note Provider: CHAPITO Branch IDENTIFYING INFORMATION PATIENT: Michelle Jules, 1965, [id number] LOS: 16 Code Status: Full Code Daily Plan: Plan of Care for Today: - DC Daptomycin--pt repeat CK 12,364 patient was approved for dalbavancin 1500 mg IV q7 days x 2 doses (first on 01/11, 2nd 01/18), so needs linezolid 600 mg PO BID till 01/11, then stop - MIV at 100/hr--will repeat labs this afternoon following liter completed to assess need for additional fluids - Linezolid started - Discharge pending further labs and need for fluid resuscitation - No plans to reimplant now Based on this we discussed options for re-implant at this time vs later as outpatient and patient in agreement to do so once risk of infection is lowered. 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 Okay for discharge from EP perspective. Subjective/Interval Note Overnight Issues: No acute issues, CK elevated this AM so MIV infusing I/O: UO 2100 ml, Net -1250 ml/24 hr, Net IO Since Admission: -18,135.89 mL [01/08/25 1604] Daily Weight: Admission weight: 118.7 kg Current weight: Weight: 111.6 kg (246 lb 1.6 oz) (standing) Diet: DIET HEART HEALTHY - 4 GM SODIUM Fluid Restriction 2000mL (1000mL Nursing, 1000mL Nutrition) Telemetry personally reviewed: SR, ventricular paced DVT Prophylaxis: Lovenox Activity: Cardiac rehab and Occupational Therapy Fall Risk: Assessed for patient fall risk and discussed safety measures during rounding. Hospital Course: Michelle Jules is a 59 y.o. female with a PMH significant for ICM/HFrEF, s/p ICD, HTN, HLD, Type II DM with chronic neuropathy, obesity, gout, RLS, allergic rhinitis and recent MRSA bacteremia on vacomycin who presented to the [facility] ED on 12/20/24 with c/o recurrent fevers, N/V and lumbar back pain. Tm 102.1. She had been receiving vancomycin via PICC line (EOT 01/02) but the last couple days she was having trouble with the line and did not receive some doses of her antibiotic. ID was consulted there and blood cultures from 12/20 revealed MRSA. Her vancomycin was continued. She was transferred for consideration of device lead extraction. 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 Concern for line infection vs pacer related endocarditis vs lumbar infection KANDY ordered. Results below. ID was consulted BC x 2 from 12/20 positive for MRSA at [facility] BC from 12/24 negative New BC x 2 sent 12/30, 01/02, 01/03, 01/04 negative to date Vancomycin stopped 12/24. DC Daptomycin--[place] [address] this AM, Linezolid started ID recs patient was approved for dalbavancin 1500 mg IV q7 days x 2 doses (first on 01/11, 2nd 01/18), so needs linezolid 600 mg PO BID till 01/11, then stop. Plan per ID: KANDY with possible lead veg, possible but less likely MV veg, thickened AV. 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 Done EP planning on device removal. Done Repeat blood cultures after removal - can replace when negative at 72 hrs. Done Cont Dapto Done Follow CT spine with MRI, concerns for leptomeningeal enhancement so LP done and CSF negative to date Lab Results Component Value Date WBC 6.71 01/08/2025 WBC 6.70 01/07/2025 Rhabdomyolysis Pt with elevated CK 12,364 this AM and most likely related to Daptomycin which was stopped - MIV at 100/hr--will recheck labs after 1 liter infused to assess need for additional fluids - UA and urine myoglobin (send out) - Urine is yellow and Cr is normal, will continue to monitor Lab Results Component Value Date CPK 12,364 (HH) 01/08/2025 CPK 57 01/01/2025 CPK 41 12/25/2024 Lab Results Component Value Date ALT 101 (H) 01/08/2025 AST 253 (H) 01/08/2025 ALKPHOS 104 01/08/2025 BILITOTAL 0.3 01/08/2025 BILIDIRECT <0.1 01/08/2025 Lumbar spine pain-improved Has chronic lumbar pain 2/2 arthritis Pain was worse on admission CT showed severe degenerative disease - 12/[address] cervical and thoracic spinal column - no evidence of acute infection - Did not complete lumbar portion of exam - clinically correlate need to image further, CT image completed through L2 - Device removed. Cutures sent. MRI C/T/L spine completed. Results as above. Chronic systolic heart failure (HFrEF) / non-ischemic cardiomyopathy NYHA class II, ACC/AHA C EF 60-65%, LVIDD: 5.7 Lab Results Component Value Date NTERMINALPRO 395 (H) 12/23/2024 Diuresis: none Beta blockade: Continue coreg 25 mg Q 12 hours ACEi / ARB / ARNI: Continue entresto 24/26 mg Q 12 hours MRA: Continue aldactone 25 mg daily SGLT2i: none Vasodilator: Inotrope: ICD / RESISTOR INSPECTOR: RESISTOR INSPECTOR-D removed 12/29/2024 Per EP: Based on this we discussed options for re-implant at this time vs later as outpatient and patient in agreement to do so once risk of infection is lowered. 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 Okay for discharge from EP perspective. Heart Healthy diet with 4 gram Na, 2L fluid restriction Weigh daily Strict I/O Hypertensive Heart Disease - medications as above BP Readings from Last 3 Encounters: 01/08/25 128/63 01/28/14 100/57 10/05/13 118/74 Hyperlipidemia - Continue Atorvastatin 10 mg Lab Results Component Value Date CHOLESTEROL 124 12/23/2024 TRIG 138 12/23/2024 HDL 26 (L) 12/23/2024 LDLCALC 70 12/23/2024 Electrolyte Monitoring - Maintain K > 4, Mg > 2 - Replete PRN - Na Lab Results Component Value Date SODIUM 136 01/08/2025 SODIUM 138 01/07/2025 SODIUM 137 01/06/2025 - K+ Lab Results Component Value Date POTASSIUM 4.1 01/08/2025 POTASSIUM 4.2 01/07/2025 POTASSIUM 4.0 01/06/2025 - Cl Lab Results Component Value Date CHLORIDE 103 01/08/2025 CHLORIDE 103 01/07/2025 CHLORIDE 102 01/06/2025 - Mg Lab Results Component Value Date MAGNESIUM 2.0 01/08/2025 MAGNESIUM 2.1 01/07/2025 MAGNESIUM 2.1 01/06/2025 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 Lab Results Component Value Date HGB 9.2 (L) 01/08/2025 HGB 9.4 (L) 01/07/2025 HGB 9.7 (L) 01/06/2025 Lab Results Component Value Date IRON 65 12/23/2024 FERRITIN 63.6 12/23/2024 Lab Results Component Value Date TRANSFERRIN 268 12/23/2024 Lab Results Component Value Date TIBC 335 12/23/2024 Lab Results Component Value Date IRONSATURAT 19 (L) 12/23/2024 Obesity (Body mass index is 36.34 kg/m .; Class I= 30-34.9, Class II= 35-39.9, Class III= > 40; <19 -consider cardiac cachexia) Patient given education regarding Lifestyle Modification Secondary to Excess Caloric intake and decreased Caloric Expenditure Diabetes Mellitus Type 2 - On home glargine 40 units bid plus sliding scale with weekly trulicity - Insulin Lispro 4 unts daily AC and HS with SS - Recs from Endo: Hospital Plan: Continue current plan, ensure all carbohydrates are covered. Basal: Glargine 50 units Q12 Prandial: Insulin lispro 1 unit for every 2 grams of carbohydrates Correction: Insulin Lispro 3 units for every 25 mg/dl greater than 150mg/dl achs DC plan in consult sign off note on 01/01/2025 Recent Labs 01/07/25 1611 01/07/25 2028 01/08/25 0317 01/08/25 0333 01/08/25 0633 01/08/25 1118 GLUCOSE 305* 158 206* 205* 229* 212* Lab Results Component Value Date HGBA1C 10.8 (H) 12/23/2024 Complexity. Obesity, Class II Body mass index is 36.34 kg/m . - Follow with PCP for dietary and lifestyle modifications. Wound Documentation Pacemaker/Defibrillator Site 12/29/24 1400 (Active) Placement Date/Time: 12/29/24 1400 Location: left upper chest Objective: Temp: [97.5 F (36.4 C)-98.7 F (37.1 C)] 97.8 F (36.6 C) Pulse (Heart Rate): [48-91] 64 Resp Rate: [16-18] 18 BP: (114-142)/(53-78) 128/63 O2 Sat (%): [93 %-99 %] 99 % Weight: [111.6 kg (246 lb 1.6 oz)] 111.6 kg (246 lb 1.6 oz) Body mass index is 36.34 kg/m . Physical Exam Constitutional: No distress. Neck: No JVD present. Cardiovascular: Normal rate, regular rhythm, S1 normal and S2 normal. Murmur heard. Pulses: Radial pulses are 2+ on the right side and 2+ on the left side. Dorsalis pedis pulses are 1+ on the right side and 1+ on the left side. Pulmonary/Chest: Effort normal and breath sounds normal. Abdominal: Soft. Bowel sounds are normal. She exhibits no distension. There is no abdominal tenderness. Musculoskeletal: General: No edema. Cervical back: Neck supple. Neurological: She is alert and oriented to person, place, and time. Skin: Skin is warm and dry. Patient Lines/Drains/Airways Status Active Lines, Drains, Airways, & Wound Overview Name Placement date Placement time Site Days Peripheral IV Line - Single Lumen 12/26/24 1527 blue cephalic vein (lateral side of arm), left 22 gauge 12/26/24 1527 -- 13 Peripheral IV Line - Single Lumen 12/29/24 0924 forearm, anterior, left 18 gauge;1 1/4 in length 12/29/24 0924 -- 10 Pacemaker/Defibrillator Site 12/29/24 1400 12/29/24 1400 -- 10 Data Review: ECHOCARDIOGRAM 01/28/2014 Transthoracic Echocardiogram: Conclusions 1. Normal left ventricular size with mod-severely reduced systolic function, LVEF 25-30%. 2. Normal right ventricular size with mild-mod reduced systolic function. 3. Wire in RA/RV. 4. No significant valvular heart disease. 5. Compared to the study from 07/2013 there has been mild improvement in systolic function. ECHOCARDIOGRAM 12/25/2024 KANDY: Interpretation Summary Technically challenging study, sub-optimal image quality, even with the use of contrast. Left Ventricle: Chamber size is normal. Normal wall thickness. Normal global systolic function. Regional wall motion is normal regional wall motion not well visualized. Ejection fraction is normal (60 - 65%). Diastolic function is normal. Right Ventricle: Right ventricle not well visualized. Chamber size is mildly enlarged. Systolic function is normal. Device wire is present. Valves not well visualized overall, but no overt vegetations noted on limited assessment. No hemodynamically significant valvular disease. No echo/Doppler evidence for pulmonary hypertension. Estimated right ventricular systolic pressure is 29 mmHg. Small pericardial effusion adjacent to the right ventricle without evidence of tamponade. Left Heart Measurements LV - Systole LVIDD 5.7 cm IVS 0.91 cm LVIDS 5 cm PW 0.86 cm LV RWT 0.3 LV Mass Index 83.3 g/m2 LV EDV BP 124 mL LV ESV BP 46 mL BP EF 63 % LV stroke volume BP (ml) 78 mL LV stroke volume index BP 33.62 mL/m2 LV - Diastole MV pk E sirena 1 m/s MV pk A sirena 0.8 m/s E/A ratio 1.25 e' septal pk sirena 0.06 m/s e' lateral pk sirena 0.09 m/s Avg e' pk sirena 0.08 m/s E/e' septal ratio 16.67 E/e' lateral ratio 11.11 Avg E/e' ratio 13.89 LV - HCM AV LVOT peak gradient 3 mmHg Left Atrium LA ESV SP 4CH (MOD) 52 mL LA ESV SP 2CH (MOD) 44 mL LA ESV BP (MOD) index 21 mL/m2 Right Heart Measurements RV - 2D RV basal diam 4.4 cm RV mid diam 4.1 cm RV long diam 7.6 cm RV - Doppler RV S' 2.1 cm/s Right Atrium RA vol index 4CH (MOD) 27.16 mL/m2 EST RAP 8 mmHg RA area 4CH (MOD) [address] Chest w/o Contrast IMPRESSION: 1. No suspicious consolidative or nodular opacity in the lungs. 2. Extensive multivessel coronary artery calcifications. w/wo Contrast C/T/L IMPRESSION: Scattered leptomeningeal enhancement along the spinal cord and involving the cauda equina given the clinical history, this is suggestive of an infectious etiology such as meningitis although is nonspecific. In the absence of a known history of cancer, leptomeningeal carcinomatosis is unlikely. - No evidence of spondylodiscitis/osteomyelitis - Multilevel spondylotic change as further detailed in the above report. I personally viewed and interpreted these images and I have reviewed and approved this report. Head IMPRESSION: No acute intracranial abnormality or mass effect. Brain w/wo Contrast IMPRESSION: Within normal limits. No finding to suggest intracranial infection. carveDILOL 25 mg Oral Q12H enoxaparin 40 mg Subcutaneous Daily Gabapentin 300 mg Oral Daily insulin glargine 50 Units Subcutaneous Q12HNS Insulin lispro 0-6 Units Subcutaneous Q24H Insulin lispro Subcutaneous 4x daily w/meals, HS lidocaine 1 patch Transdermal Q24H lidocaine 1 patch Transdermal Q24H Linezolid 600 mg Oral Q12H Loratadine 10 mg Oral Daily magnesium oxide 400 mg Oral BID Pantoprazole 40 mg Oral Daily rOPINIRole 0.5 mg Oral QHS sacubitril-valsartan 1 tablet Oral Q12H Spironolactone 25 mg Oral Daily Discussed with team on rounds. This plan will be discussed with Dr. Moe Bernard MD, the attending needle control cheniller. DISCHARGE PLANNING: Dispo/Debility -Home with services Follow Up Appointments: No Follow Up needed in Heart Failure Clinic Please Ensure Follow Up Labs / Testing are scheduled: TBD CHAPITO Branch HF2/Advanced Heart Failure Phone: [phone] I saw and independently examined this patient today. I discussed my findings and the therapeutic plan with the fellow. Please see my note with my own ROS and physical exam and edits to note where needed. Cosigned by Moe Bernard MD at 01/08/2025 6:34 PM EDT Associated attestation - Moe Bernard MD - 01/08/2025 6:34 PM EDT I saw and personally examined the patient today with the advanced practice provider on rounds. I provided a substantive portion of the care for this patient. I personally performed all aspects of the medical decision making for this encounter. I agree with the history, examination, and medical decision making as noted by the advanced practice provider except as documented. Briefly: 59 y.o. female with a PMH significant for ICM/HFrEF, s/p ICD, HTN, HLD, Type II DM with chronic neuropathy, obesity, gout, RLS, allergic rhinitis and recent MRSA bacteremia on vacomycin who presented to the [facility] ED on 12/20/24 with c/o recurrent fevers, N/V and lumbar back pain #MRSA bacteremia: RESISTOR INSPECTOR device removed. Cultures cleared. MRI spine with leptomeningeal enhancement. LP on 01/04 with NGTD. Continue abx per ID team. MRI brain unrevealing #HTN: Continue coreg, entresto, fahad #Chronic systolic heart failure (recovered): Continue coreg, entresto, fahad. Device replacement as an outpatient now per EP team #Rhabdo: CK elevated. Dapto stopped. IVF today. Trend liver enzymes, Cr and CK levels. Moe Bernard MD Advanced Heart Failure/Transplant Cardiology Progression of Care Note Expected Discharge Date: 01/11/2025 Assessment and Discharge Plan as of 01/08/2025 2:43 PM Patient is not medically ready for discharge today. Her CK bumped to 12,364. Dapto discontinued. Checking renal function and electrolytes. Anticipated Services at Discharge: Outpatient follow up. Michelle Mclain RN, BSN Clinical Cell Room Supervisor Heart Failure 2/Advanced Heart Failure Progress Note Provider: Kasandra Page APRN-SHIPPING AND RECEIVING WEIGHER IDENTIFYING INFORMATION PATIENT: Michelle Jules, 1965, [id number] LOS: 16 Code Status: Full Code Daily Plan: Plan of Care for Today: - No plan to reimplant now. See EP note. - Discontinued Dapto due to significant increased CK. Starting Linezolid. Will discharge on same then transition to dalbavancin (EOT 02/10) - NS 1000 ml @ 100 ml/hr - Urine myoglobin sent (outside lab) - Discharge to home delayed due to elevated CK and elevated LFTs, concern for new rhabdomyolysis. Subjective/Interval Note Overnight Issues: No overnight events. I/O: UO 2100 ml, Net -1250 ml/24 hr, Net IO Since Admission: -18,235.92 mL [01/08/25 1400] Daily Weight: Admission weight: 118.7 kg Current weight: Weight: 111.6 kg (246 lb 1.6 oz) (standing) Diet: DIET HEART HEALTHY - 4 GM SODIUM Fluid Restriction 2000mL (1000mL Nursing, 1000mL Nutrition) Telemetry personally reviewed: SR, ventricular paced DVT Prophylaxis: Lovenox Activity: Cardiac rehab and Occupational Therapy Fall Risk: Assessed for patient fall risk and discussed safety measures during rounding. Hospital Course: Michelle Jules is a 59 y.o. female with a PMH significant for ICM/HFrEF, s/p ICD, HTN, HLD, Type II DM with chronic neuropathy, obesity, gout, RLS, allergic rhinitis and recent MRSA bacteremia on vacomycin who presented to the [facility] ED on 12/20/24 with c/o recurrent fevers, N/V and lumbar back pain. Tm 102.1. She had been receiving vancomycin via PICC line (EOT 01/02) but the last couple days she was having trouble with the line and did not receive some doses of her antibiotic. ID was consulted there and blood cultures from 12/20 revealed MRSA. Her vancomycin was continued. She was transferred for consideration of device lead extraction. 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 Concern for line infection vs pacer related endocarditis vs lumbar infection KANDY ordered. Results below. ID was consulted BC x 2 from 12/20 positive for MRSA at [facility] BC from 12/24 NGTD New BC x 2 sent 12/30 per ID rec. Vancomycin stopped 12/24. Started Daptomycin 8mg/kg every 24 hours per ID recs. Plan per ID: KANDY with possible lead veg, possible but less likely MV veg, thickened AV. 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 Done EP planning on device removal. Done Repeat blood cultures after removal - can replace when negative at 72 hrs. DONE Cont Dapto Done Follow CT spine On Going Lab Results Component Value Date WBC 6.71 01/08/2025 WBC 6.70 01/07/2025 Elevated CK 2/2 Daptomycin, r/o rhabdomyolysis Lab Results Component Value Date CPK 12,364 (HH) 01/08/2025 CPK 57 01/01/2025 ALKPHOS 104 01/08/2025 ALKPHOS 108 12/23/2024 AST 253 (H) 01/08/2025 AST 14 12/23/2024 ALT 101 (H) 01/08/2025 ALT 14 12/23/2024 - Stopped dapto, started Linezolid - IVF NS @ 100ml/hr - Repeat CK, LFTs - Avoid hepatotoxic agents. - Urine myoglobin pending Lumbar spine pain-improved Has chronic lumbar pain 2/2 arthritis Pain was worse on admission CT showed severe degenerative disease - 12/[address] cervical and thoracic spinal column - no evidence of acute infection - Did not complete lumbar portion of exam - clinically correlate need to image further, CT image completed through L2 ICD is not MRI compatible Device removed. Cutures sent. MRI C/T/L spine completed. Results as below. Chronic systolic heart failure (HFrEF) / non-ischemic cardiomyopathy NYHA class II, ACC/AHA C EF , LVIDD: Lab Results Component Value Date NTERMINALPRO 395 (H) 12/23/2024 Diuresis: none Beta blockade: Continue coreg 25 mg bid ACEi / ARB / ARNI: Continue entresto 24/26 mg bid MRA: Continue aldactone 25 mg daily SGLT2i: none Vasodilator: Inotrope: ICD / RESISTOR INSPECTOR: RESISTOR INSPECTOR-D Heart Healthy diet with 4 gram Na, 2L fluid restriction Weigh daily Strict I/O Hypertensive Heart Disease - medications as above BP Readings from Last 3 Encounters: 01/08/25 142/65 01/28/14 100/57 10/05/13 118/74 Hyperlipidemia - Atorvastatin 10 mg held Lab Results Component Value Date CHOLESTEROL 124 12/23/2024 TRIG 138 12/23/2024 HDL 26 (L) 12/23/2024 LDLCALC 70 12/23/2024 Electrolyte Monitoring - Maintain K > 4, Mg > 2 - Replete PRN - Na Lab Results Component Value Date SODIUM 136 01/08/2025 SODIUM 138 01/07/2025 SODIUM 137 01/06/2025 - K+ Lab Results Component Value Date POTASSIUM 4.1 01/08/2025 POTASSIUM 4.2 01/07/2025 POTASSIUM 4.0 01/06/2025 - Cl Lab Results Component Value Date CHLORIDE 103 01/08/2025 CHLORIDE 103 01/07/2025 CHLORIDE 102 01/06/2025 - Mg Lab Results Component Value Date MAGNESIUM 2.0 01/08/2025 MAGNESIUM 2.1 01/07/2025 MAGNESIUM 2.1 01/06/2025 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 Lab Results Component Value Date HGB 9.2 (L) 01/08/2025 HGB 9.4 (L) 01/07/2025 HGB 9.7 (L) 01/06/2025 Lab Results Component Value Date IRON 65 12/23/2024 FERRITIN 63.6 12/23/2024 Lab Results Component Value Date TRANSFERRIN 268 12/23/2024 Lab Results Component Value Date TIBC 335 12/23/2024 Lab Results Component Value Date IRONSATURAT 19 (L) 12/23/2024 Obesity (Body mass index is 36.34 kg/m .; Class I= 30-34.9, Class II= 35-39.9, Class III= > 40; <19 -consider cardiac cachexia) Patient given education regarding Lifestyle Modification Secondary to Excess Caloric intake and decreased Caloric Expenditure Diabetes Mellitus Type 2 - On home glargine 40 units bid plus sliding scale with weekly trulicity - Insulin Lispro 4 unts daily AC and HS with SS - Recs from Endo: Basal/Mealtime - Basal: U100 Glargine PENS with needles, dose 40 units every 12 hours. (Or insurance covered equivalent.) No Titration. - Mealtime time insulin: FixedvsFlexible: Fixed: U100 Lispro Pens with Pen Lackey MAX DAILY DOSE 150 units 30 Units for Large Meal or 15 Units for Small Meal PLUS Correction Scale Subcutaneous every meal and at bedtime Correction Scale: (Copy and paste into Note to Pharmacy) Custom: 150-200 = 3 unit 201-250 = 6 units 251-300 = 9 units 301-350 = 12 units 351-400 = 15 units Recent Labs 01/07/25 1611 01/07/258 01/08/25 0317 01/08/25 0333 01/08/25 0633 01/08/25 1118 GLUCOSE 305* 158 206* 205* 229* 212* Lab Results Component Value Date HGBA1C 10.8 (H) 12/23/2024 Complexity. Obesity, Class II Body mass index is 36.34 kg/m . - Follow with PCP for dietary and lifestyle modifications. Wound Documentation Pacemaker/Defibrillator Site 12/29/24 1400 (Active) Placement Date/Time: 12/29/24 1400 Location: left upper chest Objective: Temp: [97.5 F (36.4 C)-98.7 F (37.1 C)] 97.8 F (36.6 C) Pulse (Heart Rate): [48-91] 91 Resp Rate: [16-18] 18 BP: (114-142)/(53-78) 142/65 O2 Sat (%): [93 %-96 %] 95 % Weight: [111.6 kg (246 lb 1.6 oz)] 111.6 kg (246 lb 1.6 oz) Body mass index is 36.34 kg/m . Physical Exam Constitutional: No distress. Eyes: Pupils are equal, round, and reactive to light. Neck: No JVD present. Cardiovascular: Normal rate, regular rhythm, normal heart sounds and normal pulses. Pulmonary/Chest: Effort normal and breath sounds normal. Surgical site tenderness left upper chest. Area soft, very tender to palpation. Noted echymosis left anterior axillary area. Site tenderness and ecchymosis improving. Musculoskeletal: General: No edema. Normal range of motion. Comments: C/o bilateral shoulder pain improved Good ROM. Neurological: She is alert and oriented to person, place, and time. Skin: Skin is warm and dry. Patient Lines/Drains/Airways Status Active Lines, Drains, Airways, & Wound Overview Name Placement date Placement time Site Days Peripheral IV Line - Single Lumen 12/26/24 1527 blue cephalic vein (lateral side of arm), left 22 gauge 12/26/24 1527 -- 12 Peripheral IV Line - Single Lumen 12/29/2424 forearm, anterior, left 18 gauge;1 / in length 12/29/24 0924 -- 10 Pacemaker/Defibrillator Site 12/29/24 1400 12/29/24 1400 -- 10 Data Review: ECHOCARDIOGRAM 01/28/2014 Transthoracic Echocardiogram: Conclusions 1. Normal left ventricular size with mod-severely reduced systolic function, LVEF 25-30%. 2. Normal right ventricular size with mild-mod reduced systolic function. 3. Wire in RA/RV. 4. No significant valvular heart disease. 5. Compared to the study from 07/2013 there has been mild improvement in systolic function. ECHOCARDIOGRAM 12/25/2024 KANDY: Interpretation Summary Technically challenging study, sub-optimal image quality, even with the use of contrast. Left Ventricle: Chamber size is normal. Normal wall thickness. Normal global systolic function. Regional wall motion is normal regional wall motion not well visualized. Ejection fraction is normal (60 - 65%). Diastolic function is normal. Right Ventricle: Right ventricle not well visualized. Chamber size is mildly enlarged. Systolic function is normal. Device wire is present. Valves not well visualized overall, but no overt vegetations noted on limited assessment. No hemodynamically significant valvular disease. No echo/Doppler evidence for pulmonary hypertension. Estimated right ventricular systolic pressure is 29 mmHg. Small pericardial effusion adjacent to the right ventricle without evidence of tamponade. Left Heart Measurements LV - Systole LVIDD 5.7 cm IVS 0.91 cm LVIDS 5 cm PW 0.86 cm LV RWT 0.3 LV Mass Index 83.3 g/m2 LV EDV BP 124 mL LV ESV BP 46 mL BP EF 63 % LV stroke volume BP (ml) 78 mL LV stroke volume index BP 33.62 mL/m2 LV - Diastole MV pk E sirena 1 m/s MV pk A sirena 0.8 m/s E/A ratio 1.25 e' septal pk sirena 0.06 m/s e' lateral pk sirena 0.09 m/s Avg e' pk sirena 0.08 m/s E/e' septal ratio 16.67 E/e' lateral ratio 11.11 Avg E/e' ratio 13.89 LV - HCM AV LVOT peak gradient 3 mmHg Left Atrium LA ESV SP 4CH (MOD) 52 mL LA ESV SP 2CH (MOD) 44 mL LA ESV BP (MOD) index 21 mL/m2 Right Heart Measurements RV - 2D RV basal diam 4.4 cm RV mid diam 4.1 cm RV long diam 7.6 cm RV - Doppler RV S' 2.1 cm/s Right Atrium RA vol index 4CH (MOD) 27.16 mL/m2 EST RAP 8 mmHg RA area 4CH (MOD) [address] Chest w/o Contrast IMPRESSION: 1. No suspicious consolidative or nodular opacity in the lungs. 2. Extensive multivessel coronary artery calcifications. w/wo Contrast C/T/L IMPRESSION: Scattered leptomeningeal enhancement along the spinal cord and involving the cauda equina given the clinical history, this is suggestive of an infectious etiology such as meningitis although is nonspecific. In the absence of a known history of cancer, leptomeningeal carcinomatosis is unlikely. - No evidence of spondylodiscitis/osteomyelitis - Multilevel spondylotic change as further detailed in the above report. I personally viewed and interpreted these images and I have reviewed and approved this report. Head IMPRESSION: No acute intracranial abnormality or mass effect. Brain w/wo Contrast IMPRESSION: Within normal limits. No finding to suggest intracranial infection. Bilat Shoulder Xrays No acute fracture or dislocation. Acromioclavicular joint space narrowing and osteophytosis.. No pathologic calcification or radiopaque foreign body. No soft tissue abnormality. IMPRESSION: No acute abnormality. Acromioclavicular arthritis bilaterally. carveDILOL 25 mg Oral Q12H enoxaparin 40 mg Subcutaneous Daily Gabapentin 300 mg Oral Daily insulin glargine 50 Units Subcutaneous Q12HNS Insulin lispro 0-6 Units Subcutaneous Q24H Insulin lispro Subcutaneous 4x daily w/meals, HS lidocaine 1 patch Transdermal Q24H lidocaine 1 patch Transdermal Q24H Linezolid 600 mg Oral Q12H Loratadine 10 mg Oral Daily magnesium oxide 400 mg Oral BID Pantoprazole 40 mg Oral Daily rOPINIRole 0.5 mg Oral QHS sacubitril-valsartan 1 tablet Oral Q12H Spironolactone 25 mg Oral Daily Discussed with team on rounds. This plan will be discussed with Dr. Moe Bernard MD, the attending needle control cheniller. DISCHARGE PLANNING: Dispo/Debility -Home with services Follow Up Appointments: No Follow Up needed in Heart Failure Clinic Please Ensure Follow Up Labs / Testing are scheduled: TBD CHAPITO Callejas HF2/Advanced Heart Failure Phone: [phone] Cosigned by CHAPITO Branch at 01/08/2025 4:24 PM EDT Inpatient Cardiopulmonary Rehab Follow Up Visit AND Activity Session Completed. RN approved, as tolerated, and patient agreeable to visit. Patient reports feeling okay without complaints. Activity Session Vitals: 01/08/25 1020 01/08/25 1026 Vital Signs Pulse (Heart Rate) 73 (pre amb) 91 (post amb) Heart Rate Source Monitor Monitor BP 115/55 142/65 MAP (mmHg) 77 mmHg 93 mmHg BP Method Automatic Automatic BP Location Right arm Right arm BP Position Lying Sitting O2 Device room air room air Activity/Level of Assistance Amb in mendoza/SBA Ambulation Distance (feet) 250 Symptoms Noted During/After Activity none Positioning Seated in chair, call light within reach IV lines, telemetry all intact upon leaving the room Activity session details: Patient agreeable and tolerated ambulation in hallway without complaints. She requested to go to the bathroom after walking in the hallway. Assisted patient to bathroom and back to chair. RN notified/aware. Encouraged continued ambulation and discussed appropriate activity progression. Discharge education reviewed with the patient. Patient s questions/concerns addressed. Mariah Ferreira, MS ([phone]) IP Cardiopulmonary & Vascular Rehab\\ NUTRITION FOLLOW-UP Pt with identified nutrition risk factors: Current admit, Fluid accumulation, Skin breakdown/wound, and Prolonged hospital stay Nutrition Plan of Care: 1. Continue current diet order. 2. Pt declined oral nutrition supplements. Encourage high protein foods. 3. Monitor for significant weight changes. 4. Monitor GI and skin integrity. 5. Monitor and encourage po intakes with goal of average po being 75%. 6. Metal Stamper to follow. _ Met with patient today at bedside to obtain following information: Diet Order: DIET HEART HEALTHY - 4 GM SODIUM Fluid Restriction 2000mL (1000mL Nursing, 1000mL Nutrition) Appetite: fair Per doc flow sheet: Date Breakfast Lunch Dinner 01/06 % % 100% 01/05 75% 75% % 01/04 0% 100% 50% 01/03 50% 0% 25% 01/02 % 0% 25% Po average over past five days is 45% of 11 meals. Admit wt: 261 lb Last recorded : 01/07/25 Weight: 111.8 kg (246 lb 6.4 oz) Height: 175.3 cm (5' 9) 6% weight loss in last month due to fluid loss. Net IO Since Admission: -17,918.95 mL [01/07/25 1611] GI Last Bowel Movement: 01/06/25 Skin Assessment Tadeo Score: 21 Pt does not meet criteria for STAND skin bundle Active Wounds: Pacemaker/Defibrillator Site 12/29/24 1400 (9) Edema none Additional Information Pt states no problems. States appetite is fair. Pt states she doesn't want any oral nutrition supplements. OSCAR Soler Pager:[phone] Heart Failure 2/Advanced Heart Failure Progress Note Provider: Romelia Coleman APRN-SHIPPING AND RECEIVING WEIGHER IDENTIFYING INFORMATION PATIENT: Michelle Jules, 1965, [id number] LOS: 15 Code Status: Full Code Daily Plan: Plan of Care for Today: - No plans to reimplant now Based on this we discussed options for re-implant at this time vs later as outpatient and patient in agreement to do so once risk of infection is lowered. 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 Okay for discharge from EP perspective. - Continuing daptomycin 8mg/kg every 24 hours per ID rec patient was approved for dalbavancin 1500 mg IV q7 days x 2 doses (first on 01/11, 2nd 01/18), so needs linezolid 600 mg PO BID till 01/11, then stop. - Xray bilat shoulders with no acute concerns Lidocaine patches to bilateral shoulders - Discharge planning Subjective/Interval Note Overnight Issues: Concerns of bilateral shoulder pain Right > Left I/O: UO 3050 ml, Net -2331 ml/24 hr, Net IO Since Admission: -17,318.95 mL [01/07/25 1437] Daily Weight: Admission weight: 118.7 kg Current weight: Weight: 111.8 kg (246 lb 6.4 oz) Diet: DIET HEART HEALTHY - 4 GM SODIUM Fluid Restriction 2000mL (1000mL Nursing, 1000mL Nutrition) Telemetry personally reviewed: SR, ventricular paced DVT Prophylaxis: Lovenox Activity: Cardiac rehab and Occupational Therapy Fall Risk: Assessed for patient fall risk and discussed safety measures during rounding. Hospital Course: Michelle Jules is a 59 y.o. female with a PMH significant for ICM/HFrEF, s/p ICD, HTN, HLD, Type II DM with chronic neuropathy, obesity, gout, RLS, allergic rhinitis and recent MRSA bacteremia on vacomycin who presented to the [facility] ED on 12/20/24 with c/o recurrent fevers, N/V and lumbar back pain. Tm 102.1. She had been receiving vancomycin via PICC line (EOT 01/02) but the last couple days she was having trouble with the line and did not receive some doses of her antibiotic. ID was consulted there and blood cultures from 12/20 revealed MRSA. Her vancomycin was continued. She was transferred for consideration of device lead extraction. 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 Concern for line infection vs pacer related endocarditis vs lumbar infection KANDY ordered. Results below. ID was consulted BC x 2 from 12/20 positive for MRSA at [facility] BC from 12/24 negative New BC x 2 sent 12/30, 01/02, 01/03, 01/04 negative to date Vancomycin stopped 12/24. Started Daptomycin 8mg/kg every 24 hours per ID recs patient was approved for dalbavancin 1500 mg IV q7 days x 2 doses (first on 01/11, 2nd 01/18), so needs linezolid 600 mg PO BID till 01/11, then stop. Plan per ID: KANDY with possible lead veg, possible but less likely MV veg, thickened AV. 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 Done EP planning on device removal. Done Repeat blood cultures after removal - can replace when negative at 72 hrs. Done Cont Dapto Done Follow CT spine with MRI, concerns for leptomeningeal enhancement so LP done and CSF negative to date Lab Results Component Value Date WBC 6.70 01/07/2025 WBC 7.16 01/06/2025 Lumbar spine pain-improved Has chronic lumbar pain 2/2 arthritis Pain was worse on admission CT showed severe degenerative disease - 12/[address] cervical and thoracic spinal column - no evidence of acute infection - Did not complete lumbar portion of exam - clinically correlate need to image further, CT image completed through L2 Device removed. Cutures sent. MRI C/T/L spine completed. Results as above. Chronic systolic heart failure (HFrEF) / non-ischemic cardiomyopathy NYHA class II, ACC/AHA C EF 60-65%, LVIDD: 5.7 Lab Results Component Value Date NTERMINALPRO 395 (H) 12/23/2024 Diuresis: none Beta blockade: Continue coreg 25 mg Q 12 hours ACEi / ARB / ARNI: Continue entresto 24/26 mg Q 12 hours MRA: Continue aldactone 25 mg daily SGLT2i: none Vasodilator: Inotrope: ICD / RESISTOR INSPECTOR: RESISTOR INSPECTOR-D removed 12/29/2024 Per EP: Based on this we discussed options for re-implant at this time vs later as outpatient and patient in agreement to do so once risk of infection is lowered. 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 Okay for discharge from EP perspective. Heart Healthy diet with 4 gram Na, 2L fluid restriction Weigh daily Strict I/O Hypertensive Heart Disease - medications as above BP Readings from Last 3 Encounters: 01/07/25 114/58 01/28/14 100/57 10/05/13 118/74 Hyperlipidemia - Continue Atorvastatin 10 mg Lab Results Component Value Date CHOLESTEROL 124 12/23/2024 TRIG 138 12/23/2024 HDL 26 (L) 12/23/2024 LDLCALC 70 12/23/2024 Electrolyte Monitoring - Maintain K > 4, Mg > 2 - Replete PRN - Na Lab Results Component Value Date SODIUM 138 01/07/2025 SODIUM 137 01/06/2025 SODIUM 138 01/05/2025 - K+ Lab Results Component Value Date POTASSIUM 4.2 01/07/2025 POTASSIUM 4.0 01/06/2025 POTASSIUM 4.0 01/05/2025 - Cl Lab Results Component Value Date CHLORIDE 103 01/07/2025 CHLORIDE 102 01/06/2025 CHLORIDE 102 01/05/2025 - Mg Lab Results Component Value Date MAGNESIUM 2.1 01/07/2025 MAGNESIUM 2.1 01/06/2025 MAGNESIUM 2.2 01/05/2025 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 Lab Results Component Value Date HGB 9.4 (L) 01/07/2025 HGB 9.7 (L) 01/06/2025 HGB 9.4 (L) 01/05/2025 Lab Results Component Value Date IRON 65 12/23/2024 FERRITIN 63.6 12/23/2024 Lab Results Component Value Date TRANSFERRIN 268 12/23/2024 Lab Results Component Value Date TIBC 335 12/23/2024 Lab Results Component Value Date IRONSATURAT 19 (L) 12/23/2024 Obesity (Body mass index is 36.39 kg/m .; Class I= 30-34.9, Class II= 35-39.9, Class III= > 40; <19 -consider cardiac cachexia) Patient given education regarding Lifestyle Modification Secondary to Excess Caloric intake and decreased Caloric Expenditure Diabetes Mellitus Type 2 - On home glargine 40 units bid plus sliding scale with weekly trulicity - Insulin Lispro 4 unts daily AC and HS with SS - Recs from Endo: Hospital Plan: Continue current plan, ensure all carbohydrates are covered. Basal: Glargine 50 units Q12 Prandial: Insulin lispro 1 unit for every 2 grams of carbohydrates Correction: Insulin Lispro 3 units for every 25 mg/dl greater than 150mg/dl achs DC plan in consult sign off note on 01/01/2025 Recent Labs 01/06/25 1653 01/06/25 2128 01/07/25 0303 01/07/25 0311 01/07/25 0703 01/07/25 1107 GLUCOSE 193* 227* 169 164 184* 310* Lab Results Component Value Date HGBA1C 10.8 (H) 12/23/2024 Complexity. Obesity, Class II Body mass index is 36.39 kg/m . - Follow with PCP for dietary and lifestyle modifications. Wound Documentation Pacemaker/Defibrillator Site 12/29/24 1400 (Active) Placement Date/Time: 12/29/24 1400 Location: left upper chest Objective: Temp: [97.4 F (36.3 C)-98.6 F (37 C)] 97.9 F (36.6 C) Pulse (Heart Rate): [52-87] 78 Resp Rate: [16-20] 18 BP: (108-144)/(55-66) 114/58 O2 Sat (%): [95 %-97 %] 97 % Weight: [111.8 kg (246 lb 6.4 oz)] 111.8 kg (246 lb 6.4 oz) Body mass index is 36.39 kg/m . Physical Exam Constitutional: No distress. Neck: No JVD present. Cardiovascular: Normal rate, regular rhythm, S1 normal and S2 normal. Murmur heard. Pulses: Radial pulses are 2+ on the right side and 2+ on the left side. Dorsalis pedis pulses are 1+ on the right side and 1+ on the left side. On exam warm and dry Pulmonary/Chest: Effort normal and breath sounds normal. Post device removal dressing intact. Tenderness improving. Abdominal: Soft. Bowel sounds are normal. She exhibits no distension. There is no abdominal tenderness. Musculoskeletal: General: No edema. Cervical back: Neck supple. Comments: Able to ambulate in mendoza w/o difficulty. Neurological: She is alert and oriented to person, place, and time. Skin: Skin is warm and dry. Patient Lines/Drains/Airways Status Active Lines, Drains, Airways, & Wound Overview Name Placement date Placement time Site Days Peripheral IV Line - Single Lumen 12/26/24 1527 blue cephalic vein (lateral side of arm), left 22 gauge 12/26/24 1527 -- 11 Peripheral IV Line - Single Lumen 12/29/24 0924 forearm, anterior, left 18 gauge;1 07/18 in length 12/29/24 0924 -- 9 Pacemaker/Defibrillator Site 12/29/24 1400 12/29/24 1400 -- 9 Data Review: ECHOCARDIOGRAM 01/28/2014 Transthoracic Echocardiogram: Conclusions 1. Normal left ventricular size with mod-severely reduced systolic function, LVEF 25-30%. 2. Normal right ventricular size with mild-mod reduced systolic function. 3. Wire in RA/RV. 4. No significant valvular heart disease. 5. Compared to the study from 07/2013 there has been mild improvement in systolic function. ECHOCARDIOGRAM 12/25/2024 KANDY: Interpretation Summary Technically challenging study, sub-optimal image quality, even with the use of contrast. Left Ventricle: Chamber size is normal. Normal wall thickness. Normal global systolic function. Regional wall motion is normal regional wall motion not well visualized. Ejection fraction is normal (60 - 65%). Diastolic function is normal. Right Ventricle: Right ventricle not well visualized. Chamber size is mildly enlarged. Systolic function is normal. Device wire is present. Valves not well visualized overall, but no overt vegetations noted on limited assessment. No hemodynamically significant valvular disease. No echo/Doppler evidence for pulmonary hypertension. Estimated right ventricular systolic pressure is 29 mmHg. Small pericardial effusion adjacent to the right ventricle without evidence of tamponade. Left Heart Measurements LV - Systole LVIDD 5.7 cm IVS 0.91 cm LVIDS 5 cm PW 0.86 cm LV RWT 0.3 LV Mass Index 83.3 g/m2 LV EDV BP 124 mL LV ESV BP 46 mL BP EF 63 % LV stroke volume BP (ml) 78 mL LV stroke volume index BP 33.62 mL/m2 LV - Diastole MV pk E sirena 1 m/s MV pk A sirena 0.8 m/s E/A ratio 1.25 e' septal pk sirena 0.06 m/s e' lateral pk sirena 0.09 m/s Avg e' pk sirena 0.08 m/s E/e' septal ratio 16.67 E/e' lateral ratio 11.11 Avg E/e' ratio 13.89 LV - HCM AV LVOT peak gradient 3 mmHg Left Atrium LA ESV SP 4CH (MOD) 52 mL LA ESV SP 2CH (MOD) 44 mL LA ESV BP (MOD) index 21 mL/m2 Right Heart Measurements RV - 2D RV basal diam 4.4 cm RV mid diam 4.1 cm RV long diam 7.6 cm RV - Doppler RV S' 2.1 cm/s Right Atrium RA vol index 4CH (MOD) 27.16 mL/m2 EST RAP 8 mmHg RA area 4CH (MOD) [address] Chest w/o Contrast IMPRESSION: 1. No suspicious consolidative or nodular opacity in the lungs. 2. Extensive multivessel coronary artery calcifications. w/wo Contrast C/T/L IMPRESSION: Scattered leptomeningeal enhancement along the spinal cord and involving the cauda equina given the clinical history, this is suggestive of an infectious etiology such as meningitis although is nonspecific. In the absence of a known history of cancer, leptomeningeal carcinomatosis is unlikely. - No evidence of spondylodiscitis/osteomyelitis - Multilevel spondylotic change as further detailed in the above report. I personally viewed and interpreted these images and I have reviewed and approved this report. Head IMPRESSION: No acute intracranial abnormality or mass effect. Brain w/wo Contrast IMPRESSION: Within normal limits. No finding to suggest intracranial infection. carveDILOL 25 mg Oral Q12H DAPTOmycin 8 mg/kg (Adjusted) Intravenous Q24H enoxaparin 40 mg Subcutaneous Daily Gabapentin 300 mg Oral Daily insulin glargine 50 Units Subcutaneous Q12HNS Insulin lispro 0-6 Units Subcutaneous Q24H Insulin lispro Subcutaneous 4x daily w/meals, HS lidocaine 1 patch Transdermal Q24H lidocaine 1 patch Transdermal Q24H Loratadine 10 mg Oral Daily magnesium oxide 400 mg Oral BID Pantoprazole 40 mg Oral Daily rOPINIRole 0.5 mg Oral QHS sacubitril-valsartan 1 tablet Oral Q12H Spironolactone 25 mg Oral Daily Discussed with team on rounds. This plan will be discussed with Dr. Moe Bernard MD, the attending needle control cheniller. DISCHARGE PLANNING: Dispo/Debility -Home with services Follow Up Appointments: No Follow Up needed in Heart Failure Clinic Please Ensure Follow Up Labs / Testing are scheduled: TBD [facility] HF2/Advanced Heart Failure Phone: [phone] I saw and independently examined this patient today. I discussed my findings and the therapeutic plan with the student. Please see my note with my own ROS and physical exam and edits to note where needed. Progression of Care Note Expected Discharge Date: 01/11/2025 Assessment and Discharge Plan as of 01/07/2025 2:10 PM CM spoke to [facility] as patient wanted to continue services. However, [facility] is not going to be able to continue services as patient is no longer home bound and does not have any IV care needs. CM spoke to the patient and explained why we are going to be able to continue services. She understood and was agreeable to cancelling the referral. Michelle Mclain RN, BSN Clinical Cell Room Supervisor Anticipated Services at Discharge: Physical Therapy, Occupational Therapy, Retirement Progression of Care Note Expected Discharge Date: 01/11/2025 Assessment and Discharge Plan as of 01/07/2025 1:55 PM CM was notified by infectious disease attending that patient has been referred to [facility] for dalbavancin infusions. Infusions have been scheduled for 01/11 and 01/18 at 13:30. Patient will be updated by the infusion clinic. CM placed both dates on AVS. Michelle Mclain RN, BSN Clinical Cell Room Supervisor Anticipated Services at Discharge: Physical Therapy, Occupational Therapy, Retirement Michelle Mclain RN, BSN Clinical Cell Room Supervisor Images from the original note were not included. DIVISION OF INFECTIOUS DISEASES ID TEAM 3 (TRANSPLANT) BRIEF PLAN OF CARE NOTE DATE OF SERVICE: 01/07/25 Discussed with primary team and since patient will not have re-implantation at this time (refer to EP note 01/07), OK to discharge with linezolid 600 mg PO BID x 14 days while we set up dalbavancin infusions (as patient requested not to go home with a line at this time, which is appropriate). The OPAT team will contact patient when infusions have been arranged locally. Addend: patient was approved for dalbavancin 1500 mg IV q7 days x 2 doses (first on 01/11, 2nd 01/18), so needs linezolid 600 mg PO BID till 01/11, then stop. Please do not hesitate to page me #[phone] or message me via Platter secure chat with any questions or concerns. Maria Esther Gutierrez MD Student Admissions Clerk-Clinical Division of Infectious Diseases Pager #[phone] Heart Failure 2/Advanced Heart Failure Progress Note Provider: Kasandra Page APRN-SHIPPING AND RECEIVING WEIGHER IDENTIFYING INFORMATION PATIENT: Michelle Jules, 1965, [id number] LOS: 15 Code Status: Full Code Daily Plan: Plan of Care for Today: - Per ID ok for reimplant. - No plan to reimplant now. See EP note. - Continuing daptomycin 8mg/kg every 24 hours per ID rec.Will start linezolid x 2 weeks then dalbavancin (EOT 02/10) - Xray bilat shoulders. Lidocaine patches to shoulders. - Discharge to home tomorrow. 01/08 Subjective/Interval Note Overnight Issues: No overnight events. I/O: UO 3050 ml, Net -64038 ml/24 hr, Net IO Since Admission: -17,558.95 mL [01/07/25 1145] Daily Weight: Admission weight: 118.7 kg Current weight: Weight: 111.8 kg (246 lb 6.4 oz) Diet: DIET HEART HEALTHY - 4 GM SODIUM Fluid Restriction 2000mL (1000mL Nursing, 1000mL Nutrition) Telemetry personally reviewed: SR, ventricular paced DVT Prophylaxis: Lovenox Activity: Cardiac rehab and Occupational Therapy Fall Risk: Assessed for patient fall risk and discussed safety measures during rounding. Hospital Course: Michelle Jules is a 59 y.o. female with a PMH significant for ICM/HFrEF, s/p ICD, HTN, HLD, Type II DM with chronic neuropathy, obesity, gout, RLS, allergic rhinitis and recent MRSA bacteremia on vacomycin who presented to the [facility] ED on 12/20/24 with c/o recurrent fevers, N/V and lumbar back pain. Tm 102.1. She had been receiving vancomycin via PICC line (EOT 01/02) but the last couple days she was having trouble with the line and did not receive some doses of her antibiotic. ID was consulted there and blood cultures from 12/20 revealed MRSA. Her vancomycin was continued. She was transferred for consideration of device lead extraction. 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 Concern for line infection vs pacer related endocarditis vs lumbar infection KANDY ordered. Results below. ID was consulted BC x 2 from 12/20 positive for MRSA at [facility] BC from 12/24 NGTD New BC x 2 sent 12/30 per ID rec. Vancomycin stopped 12/24. Started Daptomycin 8mg/kg every 24 hours per ID recs. Plan per ID: KANDY with possible lead veg, possible but less likely MV veg, thickened AV. 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 Done EP planning on device removal. Done Repeat blood cultures after removal - can replace when negative at 72 hrs. DONE Cont Dapto Done Follow CT spine On Going Lab Results Component Value Date WBC 6.70 01/07/2025 WBC 7.16 01/06/2025 Lumbar spine pain-improved Has chronic lumbar pain 2/2 arthritis Pain was worse on admission CT showed severe degenerative disease - 12/[address] cervical and thoracic spinal column - no evidence of acute infection - Did not complete lumbar portion of exam - clinically correlate need to image further, CT image completed through L2 ICD is not MRI compatible Device removed. Cutures sent. MRI C/T/L spine completed. Results as below. Chronic systolic heart failure (HFrEF) / non-ischemic cardiomyopathy NYHA class II, ACC/AHA C EF , LVIDD: Lab Results Component Value Date NTERMINALPRO 395 (H) 12/23/2024 Diuresis: none Beta blockade: Continue coreg 25 mg bid ACEi / ARB / ARNI: Continue entresto 24/26 mg bid MRA: Continue aldactone 25 mg daily SGLT2i: none Vasodilator: Inotrope: ICD / RESISTOR INSPECTOR: RESISTOR INSPECTOR-D Heart Healthy diet with 4 gram Na, 2L fluid restriction Weigh daily Strict I/O Hypertensive Heart Disease - medications as above BP Readings from Last 3 Encounters: 01/07/25 114/58 01/28/14 100/57 10/05/13 118/74 Hyperlipidemia - Continue Atorvastatin 10 mg Lab Results Component Value Date CHOLESTEROL 124 12/23/2024 TRIG 138 12/23/2024 HDL 26 (L) 12/23/2024 LDLCALC 70 12/23/2024 Electrolyte Monitoring - Maintain K > 4, Mg > 2 - Replete PRN - Na Lab Results Component Value Date SODIUM 138 01/07/2025 SODIUM 137 01/06/2025 SODIUM 138 01/05/2025 - K+ Lab Results Component Value Date POTASSIUM 4.2 01/07/2025 POTASSIUM 4.0 01/06/2025 POTASSIUM 4.0 01/05/2025 - Cl Lab Results Component Value Date CHLORIDE 103 01/07/2025 CHLORIDE 102 01/06/2025 CHLORIDE 102 01/05/2025 - Mg Lab Results Component Value Date MAGNESIUM 2.1 01/07/2025 MAGNESIUM 2.1 01/06/2025 MAGNESIUM 2.2 01/05/2025 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 Lab Results Component Value Date HGB 9.4 (L) 01/07/2025 HGB 9.7 (L) 01/06/2025 HGB 9.4 (L) 01/05/2025 Lab Results Component Value Date IRON 65 12/23/2024 FERRITIN 63.6 12/23/2024 Lab Results Component Value Date TRANSFERRIN 268 12/23/2024 Lab Results Component Value Date TIBC 335 12/23/2024 Lab Results Component Value Date IRONSATURAT 19 (L) 12/23/2024 Obesity (Body mass index is 36.39 kg/m .; Class I= 30-34.9, Class II= 35-39.9, Class III= > 40; <19 -consider cardiac cachexia) Patient given education regarding Lifestyle Modification Secondary to Excess Caloric intake and decreased Caloric Expenditure Diabetes Mellitus Type 2 - On home glargine 40 units bid plus sliding scale with weekly trulicity - Insulin Lispro 4 unts daily AC and HS with SS - Recs from Endo: Basal/Mealtime - Basal: U100 Glargine PENS with needles, dose 40 units every 12 hours. (Or insurance covered equivalent.) No Titration. - Mealtime time insulin: FixedvsFlexible: Fixed: U100 Lispro Pens with Pen Lackey MAX DAILY DOSE 150 units 30 Units for Large Meal or 15 Units for Small Meal PLUS Correction Scale Subcutaneous every meal and at bedtime Correction Scale: (Copy and paste into Note to Pharmacy) Custom: 150-200 = 3 unit 201-250 = 6 units 251-300 = 9 units 301-350 = 12 units 351-400 = 15 units Recent Labs 01/06/25 0642 01/06/25 1146 01/06/25 1653 01/06/25 2128 01/07/25 0311 01/07/25 0703 GLUCOSE 125 184* 193* 227* 164 184* Lab Results Component Value Date HGBA1C 10.8 (H) 12/23/2024 Complexity. Obesity, Class II Body mass index is 36.39 kg/m . - Follow with PCP for dietary and lifestyle modifications. Wound Documentation Pacemaker/Defibrillator Site 12/29/24 1400 (Active) Placement Date/Time: 12/29/24 1400 Location: left upper chest Objective: Temp: [97.4 F (36.3 C)-98.6 F (37 C)] 97.9 F (36.6 C) Pulse (Heart Rate): [52-87] 65 Resp Rate: [16-20] 18 BP: (108-144)/(55-66) 114/58 O2 Sat (%): [95 %-97 %] 97 % Weight: [111.8 kg (246 lb 6.4 oz)] 111.8 kg (246 lb 6.4 oz) Body mass index is 36.39 kg/m . Physical Exam Constitutional: No distress. Eyes: Pupils are equal, round, and reactive to light. Neck: No JVD present. Cardiovascular: Normal rate, regular rhythm, normal heart sounds and normal pulses. Pulmonary/Chest: Effort normal and breath sounds normal. Surgical site tenderness left upper chest. Area soft, very tender to palpation. Noted echymosis left anterior axillary area. Site tenderness and ecchymosis improving. Musculoskeletal: General: No edema. Normal range of motion. Comments: C/o bilateral shoulder pain onset a few days ago R > L. Denies known recent injury/trauma. Good ROM. No visible sign of injury. Bilateral shoulder xrays completed. Both normal with the exception of showing acromioclavicular arthritis Neurological: She is alert and oriented to person, place, and time. Skin: Skin is warm and dry. Patient Lines/Drains/Airways Status Active Lines, Drains, Airways, & Wound Overview Name Placement date Placement time Site Days Peripheral IV Line - Single Lumen 12/26/24 1527 blue cephalic vein (lateral side of arm), left 22 gauge 12/26/24 1527 -- 11 Peripheral IV Line - Single Lumen 12/29/24 0924 forearm, anterior, left 18 gauge;1 07/18 in length 12/29/24 0924 -- 9 Pacemaker/Defibrillator Site 12/29/24 1400 12/29/24 1400 -- 8 Data Review: ECHOCARDIOGRAM 01/28/2014 Transthoracic Echocardiogram: Conclusions 1. Normal left ventricular size with mod-severely reduced systolic function, LVEF 25-30%. 2. Normal right ventricular size with mild-mod reduced systolic function. 3. Wire in RA/RV. 4. No significant valvular heart disease. 5. Compared to the study from 07/2013 there has been mild improvement in systolic function. ECHOCARDIOGRAM 12/25/2024 KANDY: Interpretation Summary Technically challenging study, sub-optimal image quality, even with the use of contrast. Left Ventricle: Chamber size is normal. Normal wall thickness. Normal global systolic function. Regional wall motion is normal regional wall motion not well visualized. Ejection fraction is normal (60 - 65%). Diastolic function is normal. Right Ventricle: Right ventricle not well visualized. Chamber size is mildly enlarged. Systolic function is normal. Device wire is present. Valves not well visualized overall, but no overt vegetations noted on limited assessment. No hemodynamically significant valvular disease. No echo/Doppler evidence for pulmonary hypertension. Estimated right ventricular systolic pressure is 29 mmHg. Small pericardial effusion adjacent to the right ventricle without evidence of tamponade. Left Heart Measurements LV - Systole LVIDD 5.7 cm IVS 0.91 cm LVIDS 5 cm PW 0.86 cm LV RWT 0.3 LV Mass Index 83.3 g/m2 LV EDV BP 124 mL LV ESV BP 46 mL BP EF 63 % LV stroke volume BP (ml) 78 mL LV stroke volume index BP 33.62 mL/m2 LV - Diastole MV pk E sirena 1 m/s MV pk A sirena 0.8 m/s E/A ratio 1.25 e' septal pk sirena 0.06 m/s e' lateral pk sirena 0.09 m/s Avg e' pk sirena 0.08 m/s E/e' septal ratio 16.67 E/e' lateral ratio 11.11 Avg E/e' ratio 13.89 LV - HCM AV LVOT peak gradient 3 mmHg Left Atrium LA ESV SP 4CH (MOD) 52 mL LA ESV SP 2CH (MOD) 44 mL LA ESV BP (MOD) index 21 mL/m2 Right Heart Measurements RV - 2D RV basal diam 4.4 cm RV mid diam 4.1 cm RV long diam 7.6 cm RV - Doppler RV S' 2.1 cm/s Right Atrium RA vol index 4CH (MOD) 27.16 mL/m2 EST RAP 8 mmHg RA area 4CH (MOD) [address] Chest w/o Contrast IMPRESSION: 1. No suspicious consolidative or nodular opacity in the lungs. 2. Extensive multivessel coronary artery calcifications. w/wo Contrast C/T/L IMPRESSION: Scattered leptomeningeal enhancement along the spinal cord and involving the cauda equina given the clinical history, this is suggestive of an infectious etiology such as meningitis although is nonspecific. In the absence of a known history of cancer, leptomeningeal carcinomatosis is unlikely. - No evidence of spondylodiscitis/osteomyelitis - Multilevel spondylotic change as further detailed in the above report. I personally viewed and interpreted these images and I have reviewed and approved this report. Head IMPRESSION: No acute intracranial abnormality or mass effect. Brain w/wo Contrast IMPRESSION: Within normal limits. No finding to suggest intracranial infection. Bilat Shoulder Xrays No acute fracture or dislocation. Acromioclavicular joint space narrowing and osteophytosis.. No pathologic calcification or radiopaque foreign body. No soft tissue abnormality. IMPRESSION: No acute abnormality. Acromioclavicular arthritis bilaterally. carveDILOL 25 mg Oral Q12H DAPTOmycin 8 mg/kg (Adjusted) Intravenous Q24H enoxaparin 40 mg Subcutaneous Daily Gabapentin 300 mg Oral Daily insulin glargine 50 Units Subcutaneous Q12HNS Insulin lispro 0-6 Units Subcutaneous Q24H Insulin lispro Subcutaneous 4x daily w/meals, HS lidocaine 1 patch Transdermal Q24H lidocaine 1 patch Transdermal Q24H Loratadine 10 mg Oral Daily magnesium oxide 400 mg Oral BID Pantoprazole 40 mg Oral Daily rOPINIRole 0.5 mg Oral QHS sacubitril-valsartan 1 tablet Oral Q12H Spironolactone 25 mg Oral Daily Discussed with team on rounds. This plan will be discussed with Dr. Moe Bernard MD, the attending needle control cheniller. DISCHARGE PLANNING: Dispo/Debility -Home with services Follow Up Appointments: No Follow Up needed in Heart Failure Clinic Please Ensure Follow Up Labs / Testing are scheduled: TRESA Page APRN-SHIPPING AND RECEIVING WEIGHER HF2/Advanced Heart Failure Phone: [phone] Cosigned by [facility] Branch at 01/07/2025 2:48 PM EDT Inpatient Cardiopulmonary Rehab Follow Up Visit AND Activity Session Completed. RN approved, as tolerated, and patient agreeable to visit. Patient reports feeling my arm is sore today. without complaints. Activity Session Vitals: 01/07/25 0917 01/07/25 0921 Vital Signs Pulse (Heart Rate) 73 (pre amb) 85 (post amb) Heart Rate Source Monitor Monitor BP 118/56 144/66 MAP (mmHg) 80 mmHg 95 mmHg BP Method Automatic Automatic BP Location Right arm Right arm BP Position Lying Sitting O2 Device room air room air Activity/Level of Assistance Amb in mendoza/SBA Ambulation Distance (feet) 250 Symptoms Noted During/After Activity none Positioning Seated in chair, call light within reach telemetry all intact upon leaving the room Activity session details: Patient was agreeable and tolerated 250ft in hallway. She did not report to have any signs or symptoms at this time while walking. RN notified/aware. Encouraged continued ambulation and discussed appropriate activity progression. Discharge education reviewed with the patient. Patient s questions/concerns addressed. Mariah Ferreira, MS ([phone]) IP Cardiopulmonary & Vascular Rehab DIVISION OF INFECTIOUS DISEASES ID TEAM 3 (TRANSPLANT) FOLLOW-UP NOTE DATE OF SERVICE: 01/06/25 ASSESSMENT: 1) MRSA bacteremia - treated with IV vancomycin 11/2024 that she states she had tremendous difficulty with (was infusing 2x/day) c/b relapse of bacteremia 12/20/24 and ultimately transferred here for device removal (RESISTOR INSPECTOR-D implanted 2013 for primary prevention). BC clear since 12/31. 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 ID team 3 (TRANSPLANT), will continue to follow. Maria Esther Gutierrez MD --I can be reached via Platter secure message or Pager #[phone]. Please do not hesitate to reach out with any questions or concerns. Please note, there is no fellow currently assigned to ID Team 3, therefore please reach out to me directly with any questions or concerns. Subjective SUBJECTIVE/INTERVAL HISTORY: Feels well Awaiting device reimplantation States she would prefer to do antibiotics at infusion center if able ROS: Pertinent positive and negative ROS are as above in the subjective/interval history. All other systems reviewed and negative. Objective PHYSICAL EXAM: Temp: [97.4 F (36.3 C)-98.5 F (36.9 C)] 97.4 F (36.3 C) Pulse (Heart Rate): [53-92] 81 Resp Rate: [14-18] 16 BP: (116-137)/(55-80) 128/63 O2 Sat (%): [93 %-98 %] 97 % Weight: [111.6 kg (246 lb)] 111.6 kg (246 lb) General: chronically ill appearing, non toxic, sitting in chair in NAD Eyes: AI sclera Ears, Nose, Mouth, Throat: MMM Neck: supple CV: regular rate Pulmonary: no respiratory distress, unlabored breathing Abdomen: non distended : no berger Neuro: speech fluent, responds to questions appropriately Psych: calm MICRO: Personally reviewed in [facility] IMAGING (personally reviewed): MRI brain 01/06/25 -no abscess, no intracranial infection Current Medications: carveDILOL 25 mg Oral Q12H DAPTOmycin 8 mg/kg (Adjusted) Intravenous Q24H enoxaparin 40 mg Subcutaneous Daily Gabapentin 300 mg Oral Daily insulin glargine 50 Units Subcutaneous Q12HNS Insulin lispro 0-6 Units Subcutaneous Q24H Insulin lispro Subcutaneous 4x daily w/meals, HS Loratadine 10 mg Oral Daily magnesium oxide 400 mg Oral BID Pantoprazole 40 mg Oral Daily rOPINIRole 0.5 mg Oral QHS sacubitril-valsartan 1 tablet Oral Q12H Spironolactone 25 mg Oral Daily LABS (personally reviewed): WBC/Hgb/Hct/Plts: 7.16/9.7/31.5/296 (01/07 420) Bun/Creat/Cl/CO2/Glucose: 7/0.81/102/28/193 (01/06 0420-01/06 1653) Estimated Creatinine Clearance: 101 mL/min (by C-G formula based on SCr of 0.81 mg/dL). Lab Results Component Value Date SEDRATE 84 (H) 01/01/2025 Lab Results Component Value Date CRP 98.17 (H) 01/01/2025 Heart Failure 2/Advanced Heart Failure Progress Note Provider: Romelia Coleman APRN-SHIPPING AND RECEIVING WEIGHER IDENTIFYING INFORMATION PATIENT: Michelle Jules, 1965, [id number] LOS: 14 Code Status: Full Code Daily Plan: Plan of Care for Today: - MRI completed with no abnormal findings. Neuro has already signed off. Within normal limits. No finding to suggest intracranial infection. - Message to ID regarding reimplant and DC planning - Continuing daptomycin 8mg/kg every 24 hours per ID rec. - Will need to discuss timing of reimplantation with EP Subjective/Interval Note Overnight Issues: No acute events I/O: UO 2700 ml, Net -1150 ml/24 hr, Net IO Since Admission: -15,587.95 mL [01/06/25 1417] Daily Weight: Admission weight: 118.7 kg Current weight: Weight: 111.6 kg (246 lb) (standing weight) Diet: DIET HEART HEALTHY - 4 GM SODIUM Fluid Restriction 2000mL (1000mL Nursing, 1000mL Nutrition) Telemetry personally reviewed: SR, ventricular paced DVT Prophylaxis: Lovenox Activity: Cardiac rehab and Occupational Therapy Fall Risk: Assessed for patient fall risk and discussed safety measures during rounding. Hospital Course: Michelle Jules is a 59 y.o. female with a PMH significant for ICM/HFrEF, s/p ICD, HTN, HLD, Type II DM with chronic neuropathy, obesity, gout, RLS, allergic rhinitis and recent MRSA bacteremia on vacomycin who presented to the [facility] ED on 12/20/24 with c/o recurrent fevers, N/V and lumbar back pain. Tm 102.1. She had been receiving vancomycin via PICC line (EOT 01/02) but the last couple days she was having trouble with the line and did not receive some doses of her antibiotic. ID was consulted there and blood cultures from 12/20 revealed MRSA. Her vancomycin was continued. She was transferred for consideration of device lead extraction. 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 Concern for line infection vs pacer related endocarditis vs lumbar infection KANDY ordered. Results below. ID was consulted BC x 2 from 12/20 positive for MRSA at [facility] BC from 12/24 negative New BC x 2 sent 12/30, 01/02, 01/03, 01/04 negative to date Vancomycin stopped 12/24. Started Daptomycin 8mg/kg every 24 hours per ID recs. Plan per ID: KANDY with possible lead veg, possible but less likely MV veg, thickened AV. 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 Done EP planning on device removal. Done Repeat blood cultures after removal - can replace when negative at 72 hrs. Done Cont Dapto Done Follow CT spine with MRI, concerns for leptomeningeal enhancement so LP done and CSF negative to date Lab Results Component Value Date WBC 7.16 01/06/2025 WBC 7.28 01/05/2025 Lumbar spine pain-improved Has chronic lumbar pain 2/2 arthritis Pain was worse on admission CT showed severe degenerative disease - 12/[address] cervical and thoracic spinal column - no evidence of acute infection - Did not complete lumbar portion of exam - clinically correlate need to image further, CT image completed through L2 Device removed. Cutures sent. MRI C/T/L spine completed. Results as above. Chronic systolic heart failure (HFrEF) / non-ischemic cardiomyopathy NYHA class II, ACC/AHA C EF , LVIDD: Lab Results Component Value Date NTERMINALPRO 395 (H) 12/23/2024 Diuresis: none Beta blockade: Continue coreg 25 mg bid ACEi / ARB / ARNI: Continue entresto 24/26 mg bid MRA: Continue aldactone 25 mg daily SGLT2i: none Vasodilator: Inotrope: ICD / RESISTOR INSPECTOR: RESISTOR INSPECTOR-D Heart Healthy diet with 4 gram Na, 2L fluid restriction Weigh daily Strict I/O Hypertensive Heart Disease - medications as above BP Readings from Last 3 Encounters: 01/06/25 117/56 01/28/14 100/57 10/05/13 118/74 Hyperlipidemia - Continue Atorvastatin 10 mg Lab Results Component Value Date CHOLESTEROL 124 12/23/2024 TRIG 138 12/23/2024 HDL 26 (L) 12/23/2024 LDLCALC 70 12/23/2024 Electrolyte Monitoring - Maintain K > 4, Mg > 2 - Replete PRN - Na Lab Results Component Value Date SODIUM 137 01/06/2025 SODIUM 138 01/05/2025 SODIUM 137 01/04/2025 - K+ Lab Results Component Value Date POTASSIUM 4.0 01/06/2025 POTASSIUM 4.0 01/05/2025 POTASSIUM 4.3 01/04/2025 - Cl Lab Results Component Value Date CHLORIDE 102 01/06/2025 CHLORIDE 102 01/05/2025 CHLORIDE 102 01/04/2025 - Mg Lab Results Component Value Date MAGNESIUM 2.1 01/06/2025 MAGNESIUM 2.2 01/05/2025 MAGNESIUM 2.2 01/04/2025 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 Lab Results Component Value Date HGB 9.7 (L) 01/06/2025 HGB 9.4 (L) 01/05/2025 HGB 9.3 (L) 01/04/2025 Lab Results Component Value Date IRON 65 12/23/2024 FERRITIN 63.6 12/23/2024 Lab Results Component Value Date TRANSFERRIN 268 12/23/2024 Lab Results Component Value Date TIBC 335 12/23/2024 Lab Results Component Value Date IRONSATURAT 19 (L) 12/23/2024 Obesity (Body mass index is 36.33 kg/m .; Class I= 30-34.9, Class II= 35-39.9, Class III= > 40; <19 -consider cardiac cachexia) Patient given education regarding Lifestyle Modification Secondary to Excess Caloric intake and decreased Caloric Expenditure Diabetes Mellitus Type 2 - On home glargine 40 units bid plus sliding scale with weekly trulicity - Insulin Lispro 4 unts daily AC and HS with SS - Recs from Endo: Hospital Plan: Continue current plan, ensure all carbohydrates are covered. Basal: Glargine 50 units Q12 Prandial: Insulin lispro 1 unit for every 2 grams of carbohydrates Correction: Insulin Lispro 3 units for every 25 mg/dl greater than 150mg/dl achs DC plan in consult sign off note on 01/01/2025 Recent Labs 01/05/25 1140 01/05/25 1921 01/06/25 0322 01/06/25 0420 01/06/25 0642 01/06/25 1146 GLUCOSE 227* 140 113 119 125 184* Lab Results Component Value Date HGBA1C 10.8 (H) 12/23/2024 Complexity. Obesity, Class II Body mass index is 36.33 kg/m . - Follow with PCP for dietary and lifestyle modifications. Wound Documentation Pacemaker/Defibrillator Site 12/29/24 1400 (Active) Placement Date/Time: 12/29/24 1400 Location: left upper chest Objective: Temp: [97.6 F (36.4 C)-99 F (37.2 C)] 97.6 F (36.4 C) Pulse (Heart Rate): [53-92] 75 Resp Rate: [14-18] 18 BP: (116-137)/(55-80) 117/56 O2 Sat (%): [93 %-98 %] 93 % Weight: [111.6 kg (246 lb)] 111.6 kg (246 lb) Body mass index is 36.33 kg/m . Physical Exam Constitutional: No distress. Neck: No JVD present. Cardiovascular: Normal rate, regular rhythm, S1 normal and S2 normal. Murmur heard. Pulses: Radial pulses are 2+ on the right side and 2+ on the left side. Dorsalis pedis pulses are 1+ on the right side and 1+ on the left side. Warm and dry Pulmonary/Chest: Effort normal and breath sounds normal. She has no wheezes. She has no rales. Post device removal dressing intact. Tenderness improving. Abdominal: Soft. Bowel sounds are normal. She exhibits no distension. There is no abdominal tenderness. Musculoskeletal: General: No edema. Cervical back: Neck supple. Comments: Able to ambulate in [place] w/o difficulty. Neurological: She is alert and oriented to person, place, and time. Skin: Skin is warm and dry. Patient Lines/Drains/Airways Status Active Lines, Drains, Airways, & Wound Overview Name Placement date Placement time Site Days Peripheral IV Line - Single Lumen 12/26/24 1527 blue cephalic vein (lateral side of arm), left 22 gauge 12/26/24 1527 -- 10 Peripheral IV Line - Single Lumen 12/29/24 0924 forearm, anterior, left 18 gauge;1 07/18 in length 12/29/24 0924 -- 8 Pacemaker/Defibrillator Site 12/29/24 1400 12/29/24 1400 -- 8 Data Review: ECHOCARDIOGRAM 01/28/2014 Transthoracic Echocardiogram: Conclusions 1. Normal left ventricular size with mod-severely reduced systolic function, LVEF 25-30%. 2. Normal right ventricular size with mild-mod reduced systolic function. 3. Wire in RA/RV. 4. No significant valvular heart disease. 5. Compared to the study from 07/2013 there has been mild improvement in systolic function. ECHOCARDIOGRAM 12/25/2024 KANDY: Interpretation Summary Technically challenging study, sub-optimal image quality, even with the use of contrast. Left Ventricle: Chamber size is normal. Normal wall thickness. Normal global systolic function. Regional wall motion is normal regional wall motion not well visualized. Ejection fraction is normal (60 - 65%). Diastolic function is normal. Right Ventricle: Right ventricle not well visualized. Chamber size is mildly enlarged. Systolic function is normal. Device wire is present. Valves not well visualized overall, but no overt vegetations noted on limited assessment. No hemodynamically significant valvular disease. No echo/Doppler evidence for pulmonary hypertension. Estimated right ventricular systolic pressure is 29 mmHg. Small pericardial effusion adjacent to the right ventricle without evidence of tamponade. Left Heart Measurements LV - Systole LVIDD 5.7 cm IVS 0.91 cm LVIDS 5 cm PW 0.86 cm LV RWT 0.3 LV Mass Index 83.3 g/m2 LV EDV BP 124 mL LV ESV BP 46 mL BP EF 63 % LV stroke volume BP (ml) 78 mL LV stroke volume index BP 33.62 mL/m2 LV - Diastole MV pk E sirena 1 m/s MV pk A sirena 0.8 m/s E/A ratio 1.25 e' septal pk sirena 0.06 m/s e' lateral pk sirena 0.09 m/s Avg e' pk sirena 0.08 m/s E/e' septal ratio 16.67 E/e' lateral ratio 11.11 Avg E/e' ratio 13.89 LV - HCM AV LVOT peak gradient 3 mmHg Left Atrium LA ESV SP 4CH (MOD) 52 mL LA ESV SP 2CH (MOD) 44 mL LA ESV BP (MOD) index 21 mL/m2 Right Heart Measurements RV - 2D RV basal diam 4.4 cm RV mid diam 4.1 cm RV long diam 7.6 cm RV - Doppler RV S' 2.1 cm/s Right Atrium RA vol index 4CH (MOD) 27.16 mL/m2 EST RAP 8 mmHg RA area 4CH (MOD) [address] Chest w/o Contrast IMPRESSION: 1. No suspicious consolidative or nodular opacity in the lungs. 2. Extensive multivessel coronary artery calcifications. w/wo Contrast C/T/L IMPRESSION: Scattered leptomeningeal enhancement along the spinal cord and involving the cauda equina given the clinical history, this is suggestive of an infectious etiology such as meningitis although is nonspecific. In the absence of a known history of cancer, leptomeningeal carcinomatosis is unlikely. - No evidence of spondylodiscitis/osteomyelitis - Multilevel spondylotic change as further detailed in the above report. I personally viewed and interpreted these images and I have reviewed and approved this report. Head IMPRESSION: No acute intracranial abnormality or mass effect. Brain w/wo Contrast IMPRESSION: Within normal limits. No finding to suggest intracranial infection. carveDILOL 25 mg Oral Q12H DAPTOmycin 8 mg/kg (Adjusted) Intravenous Q24H enoxaparin 40 mg Subcutaneous Daily Gabapentin 300 mg Oral Daily insulin glargine 50 Units Subcutaneous Q12HNS Insulin lispro 0-6 Units Subcutaneous Q24H Insulin lispro Subcutaneous 4x daily w/meals, HS Loratadine 10 mg Oral Daily magnesium oxide 400 mg Oral BID Pantoprazole 40 mg Oral Daily rOPINIRole 0.5 mg Oral QHS sacubitril-valsartan 1 tablet Oral Q12H Spironolactone 25 mg Oral Daily Discussed with team on rounds. This plan will be discussed with Dr. Moe Bernard MD, the attending needle control cheniller. DISCHARGE PLANNING: Dispo/Debility -Home with services Follow Up Appointments: No Follow Up needed in Heart Failure Clinic Please Ensure Follow Up Labs / Testing are scheduled: TBD CHAPITO Branch HF2/Advanced Heart Failure Phone: [phone] I saw and independently examined this patient today. I discussed my findings and the therapeutic plan with the student. Please see my note with my own ROS and physical exam and edits to note where needed. Cosigned by Moe Bernard MD at 01/06/2025 2:32 PM EDT Associated attestation - Moe Bernard MD - 01/06/2025 2:32 PM EDT I saw and personally examined the patient today with the advanced practice provider on rounds. I provided a substantive portion of the care for this patient. I personally performed all aspects of the medical decision making for this encounter. I agree with the history, examination, and medical decision making as noted by the advanced practice provider except as documented. Briefly: 59 y.o. female with a PMH significant for ICM/HFrEF, s/p ICD, HTN, HLD, Type II DM with chronic neuropathy, obesity, gout, RLS, allergic rhinitis and recent MRSA bacteremia on vacomycin who presented to the [facility] ED on 12/20/24 with c/o recurrent fevers, N/V and lumbar back pain #MRSA bacteremia: RESISTOR INSPECTOR device removed. Cultures cleared. MRI spine with leptomeningeal enhancement. LP on 01/04 with NGTD. Continue abx per ID team. Brain MRI performed, awaiting read #HTN: Continue coreg, entresto, fahad #Chronic systolic heart failure (recovered): Continue coreg, entresto, fahad. Device replacement once cultures from LP clear for 72 hours pending brain MRI results Moe Bernard MD Advanced Heart Failure/Transplant Cardiology Heart Failure 2/Advanced Heart Failure Progress Note Provider: Kasandra Page APRN-SHIPPING AND RECEIVING WEIGHER IDENTIFYING INFORMATION PATIENT: Michelle Jules, 1965, [id number] LOS: 14 Code Status: Full Code Daily Plan: Plan of Care for Today: - MRI completed with no abnormal findings. Per ID ok for reimplant. - Reach out to ID regarding reimplant. Neuro has already signed off. - Continuing daptomycin 8mg/kg every 24 hours per ID rec. - Subjective/Interval Note Overnight Issues: No overnight events. I/O: UO 2700 ml, Net -1150 ml/24 hr, Net IO Since Admission: -15,437.95 mL [06/25/25 1200] Daily Weight: Admission weight: 118.7 kg Current weight: Weight: 111.6 kg (246 lb) (standing weight) Diet: DIET HEART HEALTHY - 4 GM SODIUM Fluid Restriction 2000mL (1000mL Nursing, 1000mL Nutrition) Telemetry personally reviewed: SR, ventricular paced DVT Prophylaxis: Lovenox Activity: Cardiac rehab and Occupational Therapy Fall Risk: Assessed for patient fall risk and discussed safety measures during rounding. Hospital Course: Michelle Jules is a 59 y.o. female with a PMH significant for ICM/HFrEF, s/p ICD, HTN, HLD, Type II DM with chronic neuropathy, obesity, gout, RLS, allergic rhinitis and recent MRSA bacteremia on vacomycin who presented to the [facility] ED on 12/20/24 with c/o recurrent fevers, N/V and lumbar back pain. Tm 102.1. She had been receiving vancomycin via PICC line (EOT 01/02) but the last couple days she was having trouble with the line and did not receive some doses of her antibiotic. ID was consulted there and blood cultures from 12/20 revealed MRSA. Her vancomycin was continued. She was transferred for consideration of device lead extraction. 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 Concern for line infection vs pacer related endocarditis vs lumbar infection KANDY ordered. Results below. ID was consulted BC x 2 from 12/20 positive for MRSA at [facility] BC from 12/24 NGTD New BC x 2 sent 12/30 per ID rec. Vancomycin stopped 12/24. Started Daptomycin 8mg/kg every 24 hours per ID recs. Plan per ID: KANDY with possible lead veg, possible but less likely MV veg, thickened AV. 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 Done EP planning on device removal. Done Repeat blood cultures after removal - can replace when negative at 72 hrs. DONE Cont Dapto Done Follow CT spine On Going Lab Results Component Value Date WBC 7.16 01/06/2025 WBC 7.28 01/05/2025 Lumbar spine pain-improved Has chronic lumbar pain 2/2 arthritis Pain was worse on admission CT showed severe degenerative disease - 12/[address] cervical and thoracic spinal column - no evidence of acute infection - Did not complete lumbar portion of exam - clinically correlate need to image further, CT image completed through L2 ICD is not MRI compatible Device removed. Cutures sent. MRI C/T/L spine completed. Results as below. Chronic systolic heart failure (HFrEF) / non-ischemic cardiomyopathy NYHA class II, ACC/AHA C EF , LVIDD: Lab Results Component Value Date NTERMINALPRO 395 (H) 12/23/2024 Diuresis: none Beta blockade: Continue coreg 25 mg bid ACEi / ARB / ARNI: Continue entresto 24/26 mg bid MRA: Continue aldactone 25 mg daily SGLT2i: none Vasodilator: Inotrope: ICD / RESISTOR INSPECTOR: RESISTOR INSPECTOR-D Heart Healthy diet with 4 gram Na, 2L fluid restriction Weigh daily Strict I/O Hypertensive Heart Disease - medications as above BP Readings from Last 3 Encounters: 01/06/25 117/56 01/28/14 100/57 10/05/13 118/74 Hyperlipidemia - Continue Atorvastatin 10 mg Lab Results Component Value Date CHOLESTEROL 124 12/23/2024 TRIG 138 12/23/2024 HDL 26 (L) 12/23/2024 LDLCALC 70 12/23/2024 Electrolyte Monitoring - Maintain K > 4, Mg > 2 - Replete PRN - Na Lab Results Component Value Date SODIUM 137 01/06/2025 SODIUM 138 01/05/2025 SODIUM 137 01/04/2025 - K+ Lab Results Component Value Date POTASSIUM 4.0 01/06/2025 POTASSIUM 4.0 01/05/2025 POTASSIUM 4.3 01/04/2025 - Cl Lab Results Component Value Date CHLORIDE 102 01/06/2025 CHLORIDE 102 01/05/2025 CHLORIDE 102 01/04/2025 - Mg Lab Results Component Value Date MAGNESIUM 2.1 01/06/2025 MAGNESIUM 2.2 01/05/2025 MAGNESIUM 2.2 01/04/2025 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 Lab Results Component Value Date HGB 9.7 (L) 01/06/2025 HGB 9.4 (L) 01/05/2025 HGB 9.3 (L) 01/04/2025 Lab Results Component Value Date IRON 65 12/23/2024 FERRITIN 63.6 12/23/2024 Lab Results Component Value Date TRANSFERRIN 268 12/23/2024 Lab Results Component Value Date TIBC 335 12/23/2024 Lab Results Component Value Date IRONSATURAT 19 (L) 12/23/2024 Obesity (Body mass index is 36.33 kg/m .; Class I= 30-34.9, Class II= 35-39.9, Class III= > 40; <19 -consider cardiac cachexia) Patient given education regarding Lifestyle Modification Secondary to Excess Caloric intake and decreased Caloric Expenditure Diabetes Mellitus Type 2 - On home glargine 40 units bid plus sliding scale with weekly trulicity - Insulin Lispro 4 unts daily AC and HS with SS - Recs from Endo: Basal/Mealtime - Basal: U100 Glargine PENS with needles, dose 40 units every 12 hours. (Or insurance covered equivalent.) No Titration. - Mealtime time insulin: FixedvsFlexible: Fixed: U100 Lispro Pens with Pen Lackey MAX DAILY DOSE 150 units 30 Units for Large Meal or 15 Units for Small Meal PLUS Correction Scale Subcutaneous every meal and at bedtime Correction Scale: (Copy and paste into Note to Pharmacy) Custom: 150-200 = 3 unit 201-250 = 6 units 251-300 = 9 units 301-350 = 12 units 351-400 = 15 units Recent Labs 01/05/25 1140 01/05/25 1921 01/06/25 0322 01/06/25 0420 01/06/25 0642 01/06/25 1146 GLUCOSE 227* 140 113 119 125 184* Lab Results Component Value Date HGBA1C 10.8 (H) 12/23/2024 Complexity. Obesity, Class II Body mass index is 36.33 kg/m . - Follow with PCP for dietary and lifestyle modifications. Wound Documentation Pacemaker/Defibrillator Site 12/29/24 1400 (Active) Placement Date/Time: 12/29/24 1400 Location: left upper chest Objective: Temp: [97.6 F (36.4 C)-99 F (37.2 C)] 97.6 F (36.4 C) Pulse (Heart Rate): [53-92] 55 Resp Rate: [14-18] 18 BP: (116-137)/(55-80) 117/56 O2 Sat (%): [93 %-98 %] 93 % Weight: [111.6 kg (246 lb)] 111.6 kg (246 lb) Body mass index is 36.33 kg/m . Physical Exam Constitutional: No distress. Eyes: Pupils are equal, round, and reactive to light. Neck: No JVD present. Cardiovascular: Normal rate, regular rhythm, normal heart sounds and normal pulses. Pulmonary/Chest: Effort normal and breath sounds normal. Surgical site tenderness left upper chest. Area soft, very tender to palpation. Noted echymosis left anterior axillary area. Musculoskeletal: General: No edema. Comments: Able to ambulate in [place] w/o difficulty. Neurological: She is alert and oriented to person, place, and time. Skin: Skin is warm and dry. Patient Lines/Drains/Airways Status Active Lines, Drains, Airways, & Wound Overview Name Placement date Placement time Site Days Peripheral IV Line - Single Lumen 12/26/24 1527 blue cephalic vein (lateral side of arm), left 22 gauge 12/26/24 1527 -- 10 Peripheral IV Line - Single Lumen 12/29/24 0924 forearm, anterior, left 18 gauge;1 07/18 in length 12/29/24 0924 -- 8 Pacemaker/Defibrillator Site 12/29/24 1400 12/29/24 1400 -- 7 Data Review: ECHOCARDIOGRAM 01/28/2014 Transthoracic Echocardiogram: Conclusions 1. Normal left ventricular size with mod-severely reduced systolic function, LVEF 25-30%. 2. Normal right ventricular size with mild-mod reduced systolic function. 3. Wire in RA/RV. 4. No significant valvular heart disease. 5. Compared to the study from 07/2013 there has been mild improvement in systolic function. ECHOCARDIOGRAM 12/25/2024 KANDY: Interpretation Summary Technically challenging study, sub-optimal image quality, even with the use of contrast. Left Ventricle: Chamber size is normal. Normal wall thickness. Normal global systolic function. Regional wall motion is normal regional wall motion not well visualized. Ejection fraction is normal (60 - 65%). Diastolic function is normal. Right Ventricle: Right ventricle not well visualized. Chamber size is mildly enlarged. Systolic function is normal. Device wire is present. Valves not well visualized overall, but no overt vegetations noted on limited assessment. No hemodynamically significant valvular disease. No echo/Doppler evidence for pulmonary hypertension. Estimated right ventricular systolic pressure is 29 mmHg. Small pericardial effusion adjacent to the right ventricle without evidence of tamponade. Left Heart Measurements LV - Systole LVIDD 5.7 cm IVS 0.91 cm LVIDS 5 cm PW 0.86 cm LV RWT 0.3 LV Mass Index 83.3 g/m2 LV EDV BP 124 mL LV ESV BP 46 mL BP EF 63 % LV stroke volume BP (ml) 78 mL LV stroke volume index BP 33.62 mL/m2 LV - Diastole MV pk E sirena 1 m/s MV pk A sirena 0.8 m/s E/A ratio 1.25 e' septal pk sirena 0.06 m/s e' lateral pk sirena 0.09 m/s Avg e' pk sirena 0.08 m/s E/e' septal ratio 16.67 E/e' lateral ratio 11.11 Avg E/e' ratio 13.89 LV - HCM AV LVOT peak gradient 3 mmHg Left Atrium LA ESV SP 4CH (MOD) 52 mL LA ESV SP 2CH (MOD) 44 mL LA ESV BP (MOD) index 21 mL/m2 Right Heart Measurements RV - 2D RV basal diam 4.4 cm RV mid diam 4.1 cm RV long diam 7.6 cm RV - Doppler RV S' 2.1 cm/s Right Atrium RA vol index 4CH (MOD) 27.16 mL/m2 EST RAP 8 mmHg RA area 4CH (MOD) [address] Chest w/o Contrast IMPRESSION: 1. No suspicious consolidative or nodular opacity in the lungs. 2. Extensive multivessel coronary artery calcifications. w/wo Contrast C/T/L IMPRESSION: Scattered leptomeningeal enhancement along the spinal cord and involving the cauda equina given the clinical history, this is suggestive of an infectious etiology such as meningitis although is nonspecific. In the absence of a known history of cancer, leptomeningeal carcinomatosis is unlikely. - No evidence of spondylodiscitis/osteomyelitis - Multilevel spondylotic change as further detailed in the above report. I personally viewed and interpreted these images and I have reviewed and approved this report. Head IMPRESSION: No acute intracranial abnormality or mass effect. Brain w/wo Contrast IMPRESSION: Within normal limits. No finding to suggest intracranial infection. carveDILOL 25 mg Oral Q12H DAPTOmycin 8 mg/kg (Adjusted) Intravenous Q24H enoxaparin 40 mg Subcutaneous Daily Gabapentin 300 mg Oral Daily insulin glargine 50 Units Subcutaneous Q12HNS Insulin lispro 0-6 Units Subcutaneous Q24H Insulin lispro Subcutaneous 4x daily w/meals, HS Loratadine 10 mg Oral Daily magnesium oxide 400 mg Oral BID Pantoprazole 40 mg Oral Daily rOPINIRole 0.5 mg Oral QHS sacubitril-valsartan 1 tablet Oral Q12H Spironolactone 25 mg Oral Daily Discussed with team on rounds. This plan will be discussed with Dr. Moe Bernard MD, the attending needle control cheniller. DISCHARGE PLANNING: Dispo/Debility -Home with services Follow Up Appointments: No Follow Up needed in Heart Failure Clinic Please Ensure Follow Up Labs / Testing are scheduled: TBD CHAPITO Callejas HF2/Advanced Heart Failure Phone: [phone] Cosigned by CHAPITO Branch at 01/06/2025 2:29 PM EDT Inpatient Cardiopulmonary Rehab Follow Up Visit AND Activity Session Completed. RN approved, as tolerated, and patient agreeable to visit. Patient reports feeling okay without complaints. Activity Session Vitals: 01/06/25 0915 01/06/25 0918 Vital Signs Pulse (Heart Rate) 63 (pre amb) 92 (post amb) Heart Rate Source Monitor Monitor BP 120/58 137/63 MAP (mmHg) 81 mmHg 91 mmHg BP Method Automatic Automatic BP Location Right arm Right arm BP Position Lying Sitting O2 Device room air room air Activity/Level of Assistance Amb in [place]/independent Ambulation Distance (feet) 250 Symptoms Noted During/After Activity none Positioning Seated in chair, call light within reach telemetry all intact upon leaving the room Activity session details: Patient agreeable and tolerated ambulation in [place]. She reported to have no signs or symptoms while walking and is hoping to leave the hospital soon. RN notified/aware. Encouraged continued ambulation and discussed appropriate activity progression. Discharge education reviewed with the patient. Patient s questions/concerns addressed. Mariah Ferreira, [phone]) IP Cardiopulmonary & Vascular Rehab ID Short Note Discussed with primary team. LP results largely unremarkable other than mildly elevated protein. Would obtain MRI brain, if unremarkable then plan to continue daptomycin and OK from ID standpoint to place device. Maria Esther Gutierrez MD Student Admissions Clerk-Clinical Division of Infectious Diseases Pager #[phone] Progression of Care Note Expected Discharge Date: Assessment and Discharge Plan as of 01/05/2025 3:21 PM CM got a phone call from [facility] asking for an update on potential discharge date. CM updated [facility] intake motor vehicle field representative Cori that the patient is not medically ready for discharge. Cori was appreciative and asked to be notified by phone when the patient discharges [phone]. Anticipated Services at Discharge: Physical Therapy, Occupational Therapy, Retirement Michelle Mclain RN, BSN Clinical Cell Room Supervisor Heart Failure 2/Advanced Heart Failure Progress Note Provider: Kasandra Page APRN-SHIPPING AND RECEIVING WEIGHER IDENTIFYING INFORMATION PATIENT: Michelle Jules, 1965, [id number] LOS: 13 Code Status: Full Code Daily Plan: Plan of Care for Today: - Restarted Lovenox 40mg - Continuing daptomycin 8mg/kg every 24 hours per ID rec. - Bld cx NGTD x 72 hours. Will reach out to ID for recs regarding time to reimplant device. - LP completed 01/04. + protein. . Subjective/Interval Note Overnight Issues: No overnight events. I/O: UO 1751 ml, Net +119 ml/24 hr, Net IO Since Admission: -14,227.95 mL [01/05/25 1148] Daily Weight: Admission weight: 118.7 kg Current weight: Weight: 112 kg (246 lb 14.4 oz) (Standing) Diet: DIET HEART HEALTHY - 4 GM SODIUM Fluid Restriction 2000mL (1000mL Nursing, 1000mL Nutrition) Telemetry personally reviewed: SR, ventricular paced DVT Prophylaxis: Lovenox Activity: Cardiac rehab and Occupational Therapy Fall Risk: Assessed for patient fall risk and discussed safety measures during rounding. Hospital Course: Michelle Jules is a 59 y.o. female with a PMH significant for ICM/HFrEF, s/p ICD, HTN, HLD, Type II DM with chronic neuropathy, obesity, gout, RLS, allergic rhinitis and recent MRSA bacteremia on vacomycin who presented to the [facility] ED on 12/20/24 with c/o recurrent fevers, N/V and lumbar back pain. Tm 102.1. She had been receiving vancomycin via PICC line (EOT 01/02) but the last couple days she was having trouble with the line and did not receive some doses of her antibiotic. ID was consulted there and blood cultures from 12/20 revealed MRSA. Her vancomycin was continued. She was transferred for consideration of device lead extraction. 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 Concern for line infection vs pacer related endocarditis vs lumbar infection KANDY ordered. Results below. ID was consulted BC x 2 from 12/20 positive for MRSA at [facility] BC from 12/24 NGTD New BC x 2 sent 12/30 per ID rec. Vancomycin stopped 12/24. Started Daptomycin 8mg/kg every 24 hours per ID recs. Plan per ID: KANDY with possible lead veg, possible but less likely MV veg, thickened AV. 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 Done EP planning on device removal. Done Repeat blood cultures after removal - can replace when negative at 72 hrs. DONE Cont Dapto Done Follow CT spine On Going Lab Results Component Value Date WBC 7.28 01/05/2025 WBC 7.73 01/04/2025 Lumbar spine pain-improved Has chronic lumbar pain 2/2 arthritis Pain was worse on admission CT showed severe degenerative disease - 12/[address] cervical and thoracic spinal column - no evidence of acute infection - Did not complete lumbar portion of exam - clinically correlate need to image further, CT image completed through L2 ICD is not MRI compatible Device removed. Cutures sent. MRI C/T/L spine completed. Results as below. Chronic systolic heart failure (HFrEF) / non-ischemic cardiomyopathy NYHA class II, ACC/AHA C EF , LVIDD: Lab Results Component Value Date NTERMINALPRO 395 (H) 12/23/2024 Diuresis: none Beta blockade: Continue coreg 25 mg bid ACEi / ARB / ARNI: Continue entresto 24/26 mg bid MRA: Continue aldactone 25 mg daily SGLT2i: none Vasodilator: Inotrope: ICD / RESISTOR INSPECTOR: RESISTOR INSPECTOR-D Heart Healthy diet with 4 gram Na, 2L fluid restriction Weigh daily Strict I/O Hypertensive Heart Disease - medications as above BP Readings from Last 3 Encounters: 01/05/25 129/61 01/28/14 100/57 10/05/13 118/74 Hyperlipidemia - Continue Atorvastatin 10 mg Lab Results Component Value Date CHOLESTEROL 124 12/23/2024 TRIG 138 12/23/2024 HDL 26 (L) 12/23/2024 LDLCALC 70 12/23/2024 Electrolyte Monitoring - Maintain K > 4, Mg > 2 - Replete PRN - Na Lab Results Component Value Date SODIUM 138 01/05/2025 SODIUM 137 01/04/2025 SODIUM 138 01/03/2025 - K+ Lab Results Component Value Date POTASSIUM 4.0 01/05/2025 POTASSIUM 4.3 01/04/2025 POTASSIUM 4.1 01/03/2025 - Cl Lab Results Component Value Date CHLORIDE 102 01/05/2025 CHLORIDE 102 01/04/2025 CHLORIDE 101 01/03/2025 - Mg Lab Results Component Value Date MAGNESIUM 2.2 01/05/2025 MAGNESIUM 2.2 01/04/2025 MAGNESIUM 2.1 01/03/2025 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 Lab Results Component Value Date HGB 9.4 (L) 01/05/2025 HGB 9.3 (L) 01/04/2025 HGB 9.0 (L) 01/03/2025 Lab Results Component Value Date IRON 65 12/23/2024 FERRITIN 63.6 12/23/2024 Lab Results Component Value Date TRANSFERRIN 268 12/23/2024 Lab Results Component Value Date TIBC 335 12/23/2024 Lab Results Component Value Date IRONSATURAT 19 (L) 12/23/2024 Obesity (Body mass index is 36.46 kg/m .; Class I= 30-34.9, Class II= 35-39.9, Class III= > 40; <19 -consider cardiac cachexia) Patient given education regarding Lifestyle Modification Secondary to Excess Caloric intake and decreased Caloric Expenditure Diabetes Mellitus Type 2 - On home glargine 40 units bid plus sliding scale with weekly trulicity - Insulin Lispro 4 unts daily AC and HS with SS - Recs from Endo: Basal/Mealtime - Basal: U100 Glargine PENS with needles, dose 40 units every 12 hours. (Or insurance covered equivalent.) No Titration. - Mealtime time insulin: FixedvsFlexible: Fixed: U100 Lispro Pens with Pen Lackey MAX DAILY DOSE 150 units 30 Units for Large Meal or 15 Units for Small Meal PLUS Correction Scale Subcutaneous every meal and at bedtime Correction Scale: (Copy and paste into Note to Pharmacy) Custom: 150-200 = 3 unit 201-250 = 6 units 251-300 = 9 units 301-350 = 12 units 351-400 = 15 units Recent Labs 01/04/25 0351 01/04/25 0619 01/04/25 1201 01/04/25 1554 01/04/25 2141 01/05/25 0447 GLUCOSE 128 115 109 191* 173 162 Lab Results Component Value Date HGBA1C 10.8 (H) 12/23/2024 Complexity. Obesity, Class II Body mass index is 36.46 kg/m . - Follow with PCP for dietary and lifestyle modifications. Wound Documentation Pacemaker/Defibrillator Site 12/29/24 1400 (Active) Placement Date/Time: 12/29/24 1400 Location: left upper chest Objective: Temp: [97.5 F (36.4 C)-99.1 F (37.3 C)] 98.6 F (37 C) Pulse (Heart Rate): [50-97] 71 Resp Rate: [16-18] 18 BP: (105-139)/(50-68) 129/61 O2 Sat (%): [93 %-98 %] 95 % Weight: [112 kg (246 lb 14.4 oz)] 112 kg (246 lb 14.4 oz) Body mass index is 36.46 kg/m . Physical Exam Constitutional: No distress. Eyes: Pupils are equal, round, and reactive to light. Neck: No JVD present. Cardiovascular: Normal heart sounds and normal pulses. Pulmonary/Chest: Effort normal and breath sounds normal. Surgical site tenderness left upper chest. Area soft, very tender to palpation. Noted echymosis left anterior axillary area. Musculoskeletal: General: No edema. Comments: Able to ambulate in mendoza w/o difficulty. Neurological: She is alert and oriented to person, place, and time. Skin: Skin is warm and dry. Patient Lines/Drains/Airways Status Active Lines, Drains, Airways, & Wound Overview Name Placement date Placement time Site Days Peripheral IV Line - Single Lumen 12/26/24 1527 blue cephalic vein (lateral side of arm), left 22 gauge 12/26/24 1527 -- 9 Peripheral IV Line - Single Lumen 12/29/24 0924 forearm, anterior, left 18 gauge;1 1/4 in length 12/29/24 0924 -- 7 Pacemaker/Defibrillator Site 12/29/24 1400 12/29/24 1400 -- 6 Data Review: ECHOCARDIOGRAM 01/28/2014 Transthoracic Echocardiogram: Conclusions 1. Normal left ventricular size with mod-severely reduced systolic function, LVEF 25-30%. 2. Normal right ventricular size with mild-mod reduced systolic function. 3. Wire in RA/RV. 4. No significant valvular heart disease. 5. Compared to the study from 07/2013 there has been mild improvement in systolic function. ECHOCARDIOGRAM 12/25/2024 KANDY: Interpretation Summary Technically challenging study, sub-optimal image quality, even with the use of contrast. Left Ventricle: Chamber size is normal. Normal wall thickness. Normal global systolic function. Regional wall motion is normal regional wall motion not well visualized. Ejection fraction is normal (60 - 65%). Diastolic function is normal. Right Ventricle: Right ventricle not well visualized. Chamber size is mildly enlarged. Systolic function is normal. Device wire is present. Valves not well visualized overall, but no overt vegetations noted on limited assessment. No hemodynamically significant valvular disease. No echo/Doppler evidence for pulmonary hypertension. Estimated right ventricular systolic pressure is 29 mmHg. Small pericardial effusion adjacent to the right ventricle without evidence of tamponade. Left Heart Measurements LV - Systole LVIDD 5.7 cm IVS 0.91 cm LVIDS 5 cm PW 0.86 cm LV RWT 0.3 LV Mass Index 83.3 g/m2 LV EDV BP 124 mL LV ESV BP 46 mL BP EF 63 % LV stroke volume BP (ml) 78 mL LV stroke volume index BP 33.62 mL/m2 LV - Diastole MV pk E sirena 1 m/s MV pk A sirena 0.8 m/s E/A ratio 1.25 e' septal pk sirena 0.06 m/s e' lateral pk sirena 0.09 m/s Avg e' pk sirena 0.08 m/s E/e' septal ratio 16.67 E/e' lateral ratio 11.11 Avg E/e' ratio 13.89 LV - HCM AV LVOT peak gradient 3 mmHg Left Atrium LA ESV SP 4CH (MOD) 52 mL LA ESV SP 2CH (MOD) 44 mL LA ESV BP (MOD) index 21 mL/m2 Right Heart Measurements RV - 2D RV basal diam 4.4 cm RV mid diam 4.1 cm RV long diam 7.6 cm RV - Doppler RV S' 2.1 cm/s Right Atrium RA vol index 4CH (MOD) 27.16 mL/m2 EST RAP 8 mmHg RA area 4CH (MOD) [address] Chest w/o Contrast IMPRESSION: 1. No suspicious consolidative or nodular opacity in the lungs. 2. Extensive multivessel coronary artery calcifications. w/wo Contrast C/T/L IMPRESSION: Scattered leptomeningeal enhancement along the spinal cord and involving the cauda equina given the clinical history, this is suggestive of an infectious etiology such as meningitis although is nonspecific. In the absence of a known history of cancer, leptomeningeal carcinomatosis is unlikely. - No evidence of spondylodiscitis/osteomyelitis - Multilevel spondylotic change as further detailed in the above report. I personally viewed and interpreted these images and I have reviewed and approved this report. Head IMPRESSION: No acute intracranial abnormality or mass effect. carveDILOL 25 mg Oral Q12H DAPTOmycin 8 mg/kg (Adjusted) Intravenous Q24H enoxaparin 40 mg Subcutaneous Daily Gabapentin 300 mg Oral Daily insulin glargine 50 Units Subcutaneous Q12HNS Insulin lispro 0-6 Units Subcutaneous Q24H Insulin lispro Subcutaneous 4x daily w/meals, HS Loratadine 10 mg Oral Daily magnesium oxide 400 mg Oral BID nystatin 1 Application Topical BID Pantoprazole 40 mg Oral Daily rOPINIRole 0.5 mg Oral QHS sacubitril-valsartan 1 tablet Oral Q12H Spironolactone 25 mg Oral Daily Discussed with team on rounds. This plan will be discussed with Dr. Moe Bernard MD, the attending needle control cheniller. DISCHARGE PLANNING: Dispo/Debility -Home with services Follow Up Appointments: No Follow Up needed in Heart Failure Clinic Please Ensure Follow Up Labs / Testing are scheduled: TBD CHAPITO Callejas HF2/Advanced Heart Failure Phone: [phone] Cosigned by CHAPITO Palmer at 01/05/2025 2:13 PM EDT Inpatient Cardiopulmonary Rehab Follow Up Visit AND Activity Session Completed. RN approved, as tolerated, and patient agreeable to visit. Patient reports feeling okay without complaints. Activity Session Vitals: 01/05/25 0917 01/05/25 0924 Vital Signs Pulse (Heart Rate) 68 (pre amb) 97 (post amb) Heart Rate Source Monitor Monitor BP 105/50 139/63 MAP (mmHg) 72 mmHg 90 mmHg BP Method Automatic Automatic BP Location Right arm Right arm BP Position Lying Sitting Activity/Level of Assistance Amb in mendoza/independent Ambulation Distance (feet) 250 Symptoms Noted During/After Activity none Positioning Seated in chair, call light within reach telemetry all intact upon leaving the room Activity session details: Patient agreeable and tolerated ambulation in hallway. She did not report to have any signs or symptoms at this time. RN notified/aware. Encouraged continued ambulation and discussed appropriate activity progression. Discharge education reviewed with the patient. Patient s questions/concerns addressed. Mariah Ferreira MS ([id number]) IP Cardiopulmonary & Vascular Rehab Heart Failure 2/Advanced Heart Failure Progress Note Provider: Bekah Ann APRN-SHIPPING AND RECEIVING WEIGHER IDENTIFYING INFORMATION PATIENT: Michelle Jules, 1965, [id number] LOS: 13 Code Status: Full Code Daily Plan: Plan of Care for Today: - Underwent LP 01/04/25, cytology and cultures pending - Discussed with ID who recommended MRI brain and continuing daptomycin with weekly CK monitoring - Discussed with EP to evaluate device reimplantation following MRI as cultures have been clear for >72 hours - Awaiting Neurology recommendations Subjective/Interval Note Overnight Issues: No acute overnight events. Notes increased pacemaker site discomfort following physical exertion while off unit for testing. Has been ambulating in hallway. I/O: UO 1750 ml, net +119 ml/24 hr; Net IO Since Admission: -14,377.95 mL [01/05/25 0915] Daily Weight: Admission weight: 118.7 kg Current weight: Weight: 112 kg (246 lb 14.4 oz) (Standing) Diet: DIET HEART HEALTHY - 4 GM SODIUM Fluid Restriction 2000mL (1000mL Nursing, 1000mL Nutrition) Telemetry personally reviewed: SR DVT Prophylaxis: Lovenox Activity: Cardiac rehab and As Tolerated Fall Risk: Assessed for patient fall risk and discussed safety measures during rounding. Hospital Course: Michelle Jules is a 59 y.o. female with a PMH significant for ICM/HFrEF, s/p ICD, HTN, HLD, Type II DM with chronic neuropathy, obesity, gout, RLS, allergic rhinitis and recent MRSA bacteremia on vacomycin who presented to the [facility] ED on 12/20/24 with c/o recurrent fevers, N/V and lumbar back pain. Tmax 102.1. She had been receiving vancomycin via PICC line (EOT 01/02/25) but the last couple days she was having trouble with the line and did not receive some doses of her antibiotic. ID was consulted there and blood cultures from 12/20/24 revealed MRSA. Her vancomycin was continued. She was transferred for consideration of device lead extraction. Primary Diagnosis: MRSA bacteremia (with sepsis 11/2024) Pt originally diagnosed with MRSA bacteremia at an [facility] and started on IV vanco and DC with PICC with EOT planned for 01/02/2025. She represented to [facility] with fever, N/V and had missed some of her doses of Vanco 2/2 issues with her PICC line. She had a KANDY at the [facility] which she reports at negative during her original admission. When she presented again, they repeated blood cultures which again came back positive for MRSA. She was then transferred to [facility] to evaluate need for device extraction. She also had concerns of back pain with her new presentation and will undergo imagining of her spine to rule out infectious source. She underwent removal of device and leads 12/29/24. - Infectious workup to date: 12/20: BC x 2 from [facility] positive for MRSA 12/23: BC with no growth 12/24: BC with no growth 12/28: CT cervical and thoracic spine without evidence of acute infection 12/29: BC x2 positive for MRSA 12/29: device culture positive for MRSA 12/30: BC x2 with gram positive cocci 12/31: NGTD 11/16 01/01: NGTD 09/16 01/01: CRP and ESR elevated, NADINE pending 01/02: BC NGTD 09/16 01/03: BC NGTD 08/19 01/04: BC NGTD 07/19 01/04: CSF cytology and cultures pending - ID following: MRI spine (01/01/25) concerning for infection vs malignancy CT chest/abdomen/pelvis (01/02/25) negative for findings of metastatic disease CT head (01/04/25): no acute intracranial abnormality or mass effect LP 01/04/25, cytology and cultures pending MRI brain ordered to complete infectious workup Continue daptomycin 8 mg/kg every 24 hours started weekly CK monitoring Blood cultures with no growth to date after device removal ok to reimplant device - Oxycodone 5 mg Q6H PRN for device extraction site pain Lab Results Component Value Date WBC 7.28 01/05/2025 WBC 7.73 01/04/2025 Lumbar spine pain - improving Has chronic lumbar pain 2/2 arthritis, pain was worse on admission. Prior CT showed severe degenerative disease. CT spine cervical/thoracic (12/29/24): No evidence of acute infection. Did not complete lumbar portion of exam - clinically correlate need to image further, CT image completed through L2 MRI cervical/thoracic/lumbar spine (01/01/25): Scattered leptomeningeal enhancement along the spinal cord and involving the cauda equina given the clinical history, this is suggestive of an infectious etiology such as meningitis although is nonspecific. In the absence of a known history of cancer, leptomeningeal carcinomatosis is unlikely. - S/p LP 01/04/25 as discussed above Chronic systolic heart failure (HFrEF) / non-ischemic cardiomyopathy NYHA class II, ACC/AHA C EF 60-65%, LVIDD: 5.7 on TTE 12/24 Lab Results Component Value Date NTERMINALPRO 395 (H) 12/23/2024 Diuresis: None Beta blockade: carvedilol 25 mg BID --> continue ACEi / ARB / ARNI: Entresto 24/26 mg BID --> continue MRA: Spironolactone 25 mg daily --> continue SGLT2i: None Vasodilator: None Inotrope: None ICD / RESISTOR INSPECTOR: RESISTOR INSPECTOR-D removed 12/29/24, okay to reimplant device once blood cultures negative 72 hours per ID - Heart Healthy 4 gram Na diet with 2L fluid restriction - Weigh daily - Strict I/O Hypertensive heart disease - Medications as described above BP Readings from Last 3 Encounters: 01/05/25 115/55 01/28/14 100/57 10/05/13 118/74 Hyperlipidemia - Continue home atorvastatin 10 mg Lab Results Component Value Date CHOLESTEROL 124 12/23/2024 TRIG 138 12/23/2024 HDL 26 (L) 12/23/2024 LDLCALC 70 12/23/2024 Electrolyte Monitoring - Maintain K > 4, Mg > 2 - Replete PRN - Daily CHEM - Na: hyponatremia, resolved Lab Results Component Value Date SODIUM 138 01/05/2025 SODIUM 137 01/04/2025 SODIUM 138 01/03/2025 - K+ Lab Results Component Value Date POTASSIUM 4.0 01/05/2025 POTASSIUM 4.3 01/04/2025 POTASSIUM 4.1 01/03/2025 - Cl Lab Results Component Value Date CHLORIDE 102 01/05/2025 CHLORIDE 102 01/04/2025 CHLORIDE 101 01/03/2025 - Mg Lab Results Component Value Date MAGNESIUM 2.2 01/05/2025 MAGNESIUM 2.2 01/04/2025 MAGNESIUM 2.1 01/03/2025 Anemia of chronic disease secondary to heart failure - No acute indication for transfusion - Consider IV iron once infection ruled out - Monitor CBC Lab Results Component Value Date HGB 9.4 (L) 01/05/2025 HGB 9.3 (L) 01/04/2025 HGB 9.0 (L) 01/03/2025 Lab Results Component Value Date IRON 65 12/23/2024 FERRITIN 63.6 12/23/2024 Lab Results Component Value Date TRANSFERRIN 268 12/23/2024 Lab Results Component Value Date TIBC 335 12/23/2024 Lab Results Component Value Date IRONSATURAT 19 (L) 12/23/2024 Diabetes Mellitus Type 2 with peripheral neuropathy Home regimen: glargine 40 units BID plus sliding scale with weekly Trulicity - Insulin Lispro 4 unts daily AC and HS with SS - Endo following and guiding hyperglycemia treatment, refer to most recent note - Continue home gabapentin 300 mg daily Recent Labs 01/04/25 0351 01/04/25 0619 01/04/25 1201 01/04/25 1554 01/04/25 2141 01/05/25 0447 GLUCOSE 128 115 109 191* 173 162 Lab Results Component Value Date HGBA1C 10.8 (H) 12/23/2024 Restless leg syndrome - Continue home ropinirole 0.5 mg at bedtime Mood disorder - Continue home duloxetine Obesity (Body mass index is 36.99 kg/m .; Class I= 30-34.9, Class II= 35-39.9, Class III= > 40; <19 -consider cardiac cachexia) Secondary to excess caloric intake and decreased caloric expenditure - Patient given education regarding Lifestyle Modification Complexity. Obesity, Class II Body mass index is 36.46 kg/m . - Follow with PCP for dietary and lifestyle modifications. Wound Documentation Pacemaker/Defibrillator Site 12/29/24 1400 (Active) Placement Date/Time: 12/29/24 1400 Location: left upper chest Wound Surgical Sheath Site 12/29/24 1416 Right Femoral (Active) Date First Assessed/Time First Assessed: 12/29/24 1416 Primary Wound Type: Surgical Secondary Wound Type - Surgical: Sheath Site Present on Original Admission: No Wound Location Orientation: Right Location: Femoral Objective: Temp: [97.5 F (36.4 C)-99.1 F (37.3 C)] 99 F (37.2 C) Pulse (Heart Rate): [50-83] 68 Resp Rate: [16-18] 18 BP: (106-124)/(53-68) 115/55 O2 Sat (%): [93 %-98 %] 94 % Weight: [112 kg (246 lb 14.4 oz)] 112 kg (246 lb 14.4 oz) Body mass index is 36.46 kg/m . Physical Exam Constitutional: No distress. She appears chronically ill. Eyes: Pupils are equal, round, and reactive to light. Neck: No JVD present. Cardiovascular: Regular rhythm, S1 normal, S2 normal and normal heart sounds. Bradycardia present. Pulses: Radial pulses are 1+ on the right side and 1+ on the left side. Dorsalis pedis pulses are 1+ on the right side and 1+ on the left side. Posterior tibial pulses are 1+ on the right side and 1+ on the left side. Warm, near euvolemia Left subclavian incision dressing loose, site with surrounding ecchymosis without drainage Pulmonary/Chest: Effort normal and breath sounds normal. She has no wheezes. She has no rales. Tenderness is present which mimics chest pain. Surgical site tenderness left upper chest. Area soft, very tender to palpation. Noted echymosis left anterior axillary area. Abdominal: Soft. Bowel sounds are normal. Hypoactive bowel sounds all quadrants Musculoskeletal: General: Tenderness (left subclavian incision) and edema (trace BLE edema) present. Cervical back: Normal range of motion. Neurological: She is alert and oriented to person, place, and time. Skin: Skin is warm and dry. Left subclavian incision site dressing clean/dry/intact with out hematoma or erythema but tender to palpation Patient Lines/Drains/Airways Status Active Lines, Drains, Airways, & Wound Overview Name Placement date Placement time Site Days Peripheral IV Line - Single Lumen 12/26/24 1527 blue cephalic vein (lateral side of arm), left 22 gauge 12/26/24 1527 -- 9 Peripheral IV Line - Single Lumen 12/29/24 0924 forearm, anterior, left 18 gauge;1 1/4 in length 12/29/24 0924 -- 6 Pacemaker/Defibrillator Site 12/29/24 1400 12/29/24 1400 -- 6 Wound Surgical Sheath Site 12/29/24 1416 Right Femoral 12/29/24 1416 Femoral 6 Data Review: ECHOCARDIOGRAM 01/28/2014 Transthoracic Echocardiogram: Conclusions 1. Normal left ventricular size with mod-severely reduced systolic function, LVEF 25-30%. 2. Normal right ventricular size with mild-mod reduced systolic function. 3. Wire in RA/RV. 4. No significant valvular heart disease. 5. Compared to the study from 07/2013 there has been mild improvement in systolic function. ECHOCARDIOGRAM 12/25/2024 KANDY: Interpretation Summary Technically challenging study, sub-optimal image quality, even with the use of contrast. Left Ventricle: Chamber size is normal. Normal wall thickness. Normal global systolic function. Regional wall motion is normal regional wall motion not well visualized. Ejection fraction is normal (60 - 65%). Diastolic function is normal. Right Ventricle: Right ventricle not well visualized. Chamber size is mildly enlarged. Systolic function is normal. Device wire is present. Valves not well visualized overall, but no overt vegetations noted on limited assessment. No hemodynamically significant valvular disease. No echo/Doppler evidence for pulmonary hypertension. Estimated right ventricular systolic pressure is 29 mmHg. Small pericardial effusion adjacent to the right ventricle without evidence of tamponade. Left Heart Measurements LV - Systole LVIDD 5.7 cm IVS 0.91 cm LVIDS 5 cm PW 0.86 cm LV RWT 0.3 LV Mass Index 83.3 g/m2 LV EDV BP 124 mL LV ESV BP 46 mL BP EF 63 % LV stroke volume BP (ml) 78 mL LV stroke volume index BP 33.62 mL/m2 LV - Diastole MV pk E sirena 1 m/s MV pk A sirena 0.8 m/s E/A ratio 1.25 e' septal pk sirena 0.06 m/s e' lateral pk sirena 0.09 m/s Avg e' pk sirena 0.08 m/s E/e' septal ratio 16.67 E/e' lateral ratio 11.11 Avg E/e' ratio 13.89 LV - HCM AV LVOT peak gradient 3 mmHg Left Atrium LA ESV SP 4CH (MOD) 52 mL LA ESV SP 2CH (MOD) 44 mL LA ESV BP (MOD) index 21 mL/m2 Right Heart Measurements RV - 2D RV basal diam 4.4 cm RV mid diam 4.1 cm RV long diam 7.6 cm RV - Doppler RV S' 2.1 cm/s Right Atrium RA vol index 4CH (MOD) 27.16 mL/m2 EST RAP 8 mmHg RA area 4CH (MOD) [address] Chest w/o Contrast IMPRESSION: 1. No suspicious consolidative or nodular opacity in the lungs. 2. Extensive multivessel coronary artery calcifications. carveDILOL 25 mg Oral Q12H DAPTOmycin 8 mg/kg (Adjusted) Intravenous Q24H enoxaparin 40 mg Subcutaneous Daily Gabapentin 300 mg Oral Daily insulin glargine 50 Units Subcutaneous Q12HNS Insulin lispro 0-6 Units Subcutaneous Q24H Insulin lispro Subcutaneous 4x daily w/meals, HS Loratadine 10 mg Oral Daily magnesium oxide 400 mg Oral BID nystatin 1 Application Topical BID Pantoprazole 40 mg Oral Daily rOPINIRole 0.5 mg Oral QHS sacubitril-valsartan 1 tablet Oral Q12H Spironolactone 25 mg Oral Daily Discussed with team on rounds. This plan will be discussed with Dr. Moe Bernard MD, the attending needle control cheniller. DISCHARGE PLANNING: Dispo/Debility -Home with services Follow Up Appointments: No Follow Up needed in Heart Failure Clinic Please Ensure Follow Up Labs / Testing are scheduled: TBD CHAPITO Palmer HF2/Advanced Heart Failure Phone: [phone] Cosigned by Moe Bernard MD at 01/05/2025 4:33 PM EDT Associated attestation - Moe Bernard MD - 01/05/2025 4:33 PM EDT I saw and personally examined the patient today with the advanced practice provider on rounds. I provided a substantive portion of the care for this patient. I personally performed all aspects of the medical decision making for this encounter. I agree with the history, examination, and medical decision making as noted by the advanced practice provider except as documented. Briefly: 59 y.o. female with a PMH significant for ICM/HFrEF, s/p ICD, HTN, HLD, Type II DM with chronic neuropathy, obesity, gout, RLS, allergic rhinitis and recent MRSA bacteremia on vacomycin who presented to the [facility] ED on 12/20/24 with c/o recurrent fevers, N/V and lumbar back pain #MRSA bacteremia: RESISTOR INSPECTOR device removed. Cultures cleared. MRI spine with leptomeningeal enhancement. LP on 01/04 with NGTD. Continue abx per ID team. Brain MRI ordered #HTN: Continue coreg, entresto, fahad #Chronic systolic heart failure (recovered): Continue coreg, entresto, fahad. Device replacement once cultures from LP clear for 72 hours Moe Bernard MD Advanced Heart Failure/Transplant Cardiology Lumbar puncture performed per Tania Acosta PA-C. Pt tolerated well with positioning for comfort and local anesthetic. (Pressures obtained with LP and recorded. Opening pressure is 22.) Diagnostic samples obtained as ordered by primary team and sample timeout performed with Tania Acosta PA-C . Specimens walked to the lab. Dressing to mid lower back dry and intact. Pt repositioned for comfort, call light within reach. Bedside nurse updated. Total 15 mL csf removed. No restrictions after procedure. H&P Procedure Update: I have examined the patient and reviewed the previous H&P and verify there aren't relevant updates. carveDILOL 25 mg Oral Q12H DAPTOmycin 8 mg/kg (Adjusted) Intravenous Q24H [Held by provider] enoxaparin 40 mg Subcutaneous Daily Gabapentin 300 mg Oral Daily insulin glargine 50 Units Subcutaneous Q12HNS Insulin lispro 0-6 Units Subcutaneous Q24H Insulin lispro Subcutaneous 4x daily w/meals, HS Loratadine 10 mg Oral Daily magnesium oxide 400 mg Oral BID nystatin 1 Application Topical BID Pantoprazole 40 mg Oral Daily rOPINIRole 0.5 mg Oral QHS sacubitril-valsartan 1 tablet Oral Q12H Spironolactone 25 mg Oral Daily Allergies Allergen Reactions Latex redness, rash Metformin Messes with heart rhythm Simvastatin myalgia Tape [*Adhesive Tape] itching Lab Results Component Value Date WBC 7.73 01/04/2025 HGB 9.3 (L) 01/04/2025 HCT 29.7 (L) 01/04/2025 PLATELET 256 01/04/2025 MCV 89.7 01/04/2025 Lab Results Component Value Date INR 1.1 01/02/2025 INR 1.1 12/28/2024 INR 1.0 10/05/2013 PT 14.0 01/02/2025 PT 13.7 12/28/2024 PT 13.1 10/05/2013 Fall Risk: Assessed for patient fall risk and discussed safety measures during rounding. Consent will be signed and site(s) confirmed with the patient immediately prior to the procedure. Heart Failure 2/Advanced Heart Failure Progress Note Provider: Bekah Ann APRN-[employer] IDENTIFYING INFORMATION PATIENT: Michelle Jules, 1965, [id number] LOS: 12 Code Status: Full Code Daily Plan: Plan of Care for Today: - Spine MRI concerning for infection vs malignancy, neurology and ID following - CT head and lumbar puncture today, may need brain MRI depending on results of LP - Continue daptomycin with weekly CK monitoring - New device placement pending clear cultures x 72 hr Subjective/Interval Note Overnight Issues: No acute overnight events. Reports improvement in pruritus. Denies complaints. Has been ambulating in hallway without difficulty. I/O: UO 2000 ml, net -900 ml/24 hr; Net IO Since Admission: -14,556.95 mL [01/04/25 0917] Daily Weight: Admission weight: 118.7 kg Current weight: Weight: 112.5 kg (248 lb) (standing) Diet: DIET NPO with meds Telemetry personally reviewed: SR DVT Prophylaxis: Lovenox held after lumbar puncture Activity: Cardiac rehab and As Tolerated Fall Risk: Assessed for patient fall risk and discussed safety measures during rounding. Hospital Course: Michelle Jules is a 59 y.o. female with a PMH significant for ICM/HFrEF, s/p ICD, HTN, HLD, Type II DM with chronic neuropathy, obesity, gout, RLS, allergic rhinitis and recent MRSA bacteremia on vacomycin who presented to the [facility] ED on 12/20/24 with c/o recurrent fevers, N/V and lumbar back pain. Tm 102.1. She had been receiving vancomycin via PICC line (EOT 01/02) but the last couple days she was having trouble with the line and did not receive some doses of her antibiotic. ID was consulted there and blood cultures from 12/20 revealed MRSA. Her vancomycin was continued. She was transferred for consideration of device lead extraction. Primary Diagnosis: MRSA bacteremia (with sepsis 11/2024) Pt originally diagnosed with MRSA bacteremia at an [facility] and started on IV vanco and DC with PICC with EOT planned for 01/02/2025. She represented to [facility] with fever, N/V and had missed some of her doses of Vanco 2/2 issues with her PICC line. She had a KANDY at the [facility] which she reports at negative during her original admission. When she presented again, they repeated blood cultures which again came back positive for MRSA. She was then transferred to [facility] to evaluate need for device extraction. She also had concerns of back pain with her new presentation and will undergo imagining of her spine to rule out infectious source. She underwent removal of device and leads 12/29/24. - Infectious workup to date: 12/20: BC x 2 from [facility] positive for MRSA 12/23: BC with no growth 12/24: BC with no growth 12/28: CT cervical and thoracic spine without evidence of acute infection 12/29: BC x2 positive for MRSA 12/29: device culture positive for MRSA 12/30: BC x2 with gram positive cocci 12/31: NGTD 10/17 01/01: NGTD 08/19 01/01: CRP and ESR elevated, NADINE pending 01/02: BC NGTD 08/19 01/03: BC NGTD 07/19 01/04: BC pending 01/04: CSF cytology and cultures pending - ID following: MRI spine (01/01/25) concerning for infection vs malignancy, s/p LP 01/04/25 CT chest/abdomen/pelvis (01/02/25) negative for findings of metastatic disease CT head (01/04/25): no acute intracranial abnormality or mass effect Daptomycin 8 mg/kg every 24 hours started 12/25/24 with weekly CK monitoring Blood cultures with no growth to date after device removal - replace device when blood cultures negative for 72 hr - Oxycodone 5 mg Q6H PRN for device extraction site pain Lab Results Component Value Date WBC 7.73 01/04/2025 WBC 6.48 01/03/2025 Lumbar spine pain - improved Has chronic lumbar pain 2/2 arthritis, pain was worse on admission. Prior CT showed severe degenerative disease. CT spine cervical/thoracic (12/29/24): No evidence of acute infection. Did not complete lumbar portion of exam - clinically correlate need to image further, CT image completed through L2 MRI cervical/thoracic/lumbar spine (01/01/25): Scattered leptomeningeal enhancement along the spinal cord and involving the cauda equina given the clinical history, this is suggestive of an infectious etiology such as meningitis although is nonspecific. In the absence of a known history of cancer, leptomeningeal carcinomatosis is unlikely. - S/p LP 01/04/25 as discussed above Chronic systolic heart failure (HFrEF) / non-ischemic cardiomyopathy NYHA class II, ACC/AHA C EF 60-65%, LVIDD: 5.7 on TTE 12/24 Lab Results Component Value Date NTERMINALPRO 395 (H) 12/23/2024 Diuresis: None Beta blockade: carvedilol 25 mg BID --> continue ACEi / ARB / ARNI: Entresto 24/26 mg BID --> continue MRA: Spironolactone 25 mg daily --> continue SGLT2i: None Vasodilator: None Inotrope: None ICD / RESISTOR INSPECTOR: RESISTOR INSPECTOR-D removed 12/29/24, okay to reimplant device once blood cultures negative 72 hours per ID - Heart Healthy 4 gram Na diet with 2L fluid restriction - Weigh daily - Strict I/O Hypertensive heart disease - Medications as described above BP Readings from Last 3 Encounters: 01/04/25 104/55 01/28/14 100/57 10/05/13 118/74 Hyperlipidemia - Continue home atorvastatin 10 mg Lab Results Component Value Date CHOLESTEROL 124 12/23/2024 TRIG 138 12/23/2024 HDL 26 (L) 12/23/2024 LDLCALC 70 12/23/2024 Electrolyte Monitoring - Maintain K > 4, Mg > 2 - Replete PRN - Daily CHEM - Na: hyponatremia, continue to monitor Lab Results Component Value Date SODIUM 137 01/04/2025 SODIUM 138 01/03/2025 SODIUM 131 (L) 01/02/2025 - K+ Lab Results Component Value Date POTASSIUM 4.3 01/04/2025 POTASSIUM 4.1 01/03/2025 POTASSIUM 4.4 01/02/2025 - Cl Lab Results Component Value Date CHLORIDE 102 01/04/2025 CHLORIDE 101 01/03/2025 CHLORIDE 97 (L) 01/02/2025 - Mg Lab Results Component Value Date MAGNESIUM 2.2 01/04/2025 MAGNESIUM 2.1 01/03/2025 MAGNESIUM 2.0 01/02/2025 Anemia of chronic disease secondary to heart failure - No acute indication for transfusion - Consider IV iron once infection ruled out - Monitor CBC Lab Results Component Value Date HGB 9.3 (L) 01/04/2025 HGB 9.0 (L) 01/03/2025 HGB 8.8 (L) 01/02/2025 Lab Results Component Value Date IRON 65 12/23/2024 FERRITIN 63.6 12/23/2024 Lab Results Component Value Date TRANSFERRIN 268 12/23/2024 Lab Results Component Value Date TIBC 335 12/23/2024 Lab Results Component Value Date IRONSATURAT 19 (L) 12/23/2024 Diabetes Mellitus Type 2 with peripheral neuropathy Home regimen: glargine 40 units BID plus sliding scale with weekly Trulicity - Insulin Lispro 4 unts daily AC and HS with SS - Endo following and guiding hyperglycemia treatment, refer to most recent note - Continue home gabapentin 300 mg daily Recent Labs 01/03/25 1112 01/03/25 1608 01/03/25 2142 01/04/25 0308 01/04/25 0351 01/04/25 0619 GLUCOSE 298* 171 170 133 128 115 Lab Results Component Value Date HGBA1C 10.8 (H) 12/23/2024 Restless leg syndrome - Continue home ropinirole 0.5 mg at bedtime Mood disorder - Continue home duloxetine Obesity (Body mass index is 36.99 kg/m .; Class I= 30-34.9, Class II= 35-39.9, Class III= > 40; <19 -consider cardiac cachexia) Secondary to excess caloric intake and decreased caloric expenditure - Patient given education regarding Lifestyle Modification Complexity. Obesity, Class II Body mass index is 36.62 kg/m . - Follow with PCP for dietary and lifestyle modifications. Wound Documentation Pacemaker/Defibrillator Site 12/29/24 1400 (Active) Placement Date/Time: 12/29/24 1400 Location: left upper chest Wound Surgical Sheath Site 12/29/24 1416 Right Femoral (Active) Date First Assessed/Time First Assessed: 12/29/24 141 Primary Wound Type: Surgical Secondary Wound Type - Surgical: Sheath Site Present on Original Admission: No Wound Location Orientation: Right Location: Femoral Objective: Temp: [97.8 F (36.6 C)-98.7 F (37.1 C)] 97.9 F (36.6 C) Pulse (Heart Rate): [53-82] 58 Resp Rate: [16-20] 18 BP: (104-116)/(52-58) 104/55 O2 Sat (%): [92 %-98 %] 96 % Weight: [112.5 kg (248 lb)] 112.5 kg (248 lb) Body mass index is 36.62 kg/m . Physical Exam Constitutional: No distress. She appears chronically ill. Eyes: Pupils are equal, round, and reactive to light. Neck: No JVD present. Cardiovascular: Normal rate, regular rhythm, S1 normal, S2 normal and normal heart sounds. Pulses: Radial pulses are 1+ on the right side and 1+ on the left side. Dorsalis pedis pulses are 1+ on the right side and 1+ on the left side. Posterior tibial pulses are 1+ on the right side and 1+ on the left side. Warm, near euvolemia Left subclavian incision dressing loose, site with surrounding ecchymosis without drainage Pulmonary/Chest: Effort normal and breath sounds normal. She has no wheezes. She has no rales. Tenderness is present which mimics chest pain. Surgical site tenderness left upper chest. Area soft, very tender to palpation. Noted echymosis left anterior axillary area. Abdominal: Soft. Bowel sounds are normal. Hypoactive bowel sounds all quadrants Musculoskeletal: General: Tenderness (left subclavian incision) present. Edema: 1+ BLE edema. Cervical back: Normal range of motion and neck supple. Neurological: She is alert and oriented to person, place, and time. Skin: Skin is warm and dry. Left subclavian incision site dressing clean/dry/intact with out hematoma or erythema but tender to palpation Patient Lines/Drains/Airways Status Active Lines, Drains, Airways, & Wound Overview Name Placement date Placement time Site Days Peripheral IV Line - Single Lumen 12/26/24 1527 blue cephalic vein (lateral side of arm), left 22 gauge 12/26/24 1527 -- 8 Peripheral IV Line - Single Lumen 12/29/24 0924 forearm, anterior, left 18 gauge;1 1/4 in length 12/29/24 0924 -- 5 Pacemaker/Defibrillator Site 12/29/24 1400 12/29/24 1400 -- 5 Wound Surgical Sheath Site 12/29/24 1416 Right Femoral 12/29/24 1416 Femoral 5 Data Review: ECHOCARDIOGRAM 01/28/2014 Transthoracic Echocardiogram: Conclusions 1. Normal left ventricular size with mod-severely reduced systolic function, LVEF 25-30%. 2. Normal right ventricular size with mild-mod reduced systolic function. 3. Wire in RA/RV. 4. No significant valvular heart disease. 5. Compared to the study from 07/2013 there has been mild improvement in systolic function. ECHOCARDIOGRAM 12/25/2024 KANDY: Interpretation Summary Technically challenging study, sub-optimal image quality, even with the use of contrast. Left Ventricle: Chamber size is normal. Normal wall thickness. Normal global systolic function. Regional wall motion is normal regional wall motion not well visualized. Ejection fraction is normal (60 - 65%). Diastolic function is normal. Right Ventricle: Right ventricle not well visualized. Chamber size is mildly enlarged. Systolic function is normal. Device wire is present. Valves not well visualized overall, but no overt vegetations noted on limited assessment. No hemodynamically significant valvular disease. No echo/Doppler evidence for pulmonary hypertension. Estimated right ventricular systolic pressure is 29 mmHg. Small pericardial effusion adjacent to the right ventricle without evidence of tamponade. Left Heart Measurements LV - Systole LVIDD 5.7 cm IVS 0.91 cm LVIDS 5 cm PW 0.86 cm LV RWT 0.3 LV Mass Index 83.3 g/m2 LV EDV BP 124 mL LV ESV BP 46 mL BP EF 63 % LV stroke volume BP (ml) 78 mL LV stroke volume index BP 33.62 mL/m2 LV - Diastole MV pk E sirena 1 m/s MV pk A sirena 0.8 m/s E/A ratio 1.25 e' septal pk sirena 0.06 m/s e' lateral pk sirena 0.09 m/s Avg e' pk sirena 0.08 m/s E/e' septal ratio 16.67 E/e' lateral ratio 11.11 Avg E/e' ratio 13.89 LV - HCM AV LVOT peak gradient 3 mmHg Left Atrium LA ESV SP 4CH (MOD) 52 mL LA ESV SP 2CH (MOD) 44 mL LA ESV BP (MOD) index 21 mL/m2 Right Heart Measurements RV - 2D RV basal diam 4.4 cm RV mid diam 4.1 cm RV long diam 7.6 cm RV - Doppler RV S' 2.1 cm/s Right Atrium RA vol index 4CH (MOD) 27.16 mL/m2 EST RAP 8 mmHg RA area 4CH (MOD) [address] Chest w/o Contrast IMPRESSION: 1. No suspicious consolidative or nodular opacity in the lungs. 2. Extensive multivessel coronary artery calcifications. carveDILOL 25 mg Oral Q12H DAPTOmycin 8 mg/kg (Adjusted) Intravenous Q24H [Held by provider] enoxaparin 40 mg Subcutaneous Daily Gabapentin 300 mg Oral Daily insulin glargine 50 Units Subcutaneous Q12HNS Insulin lispro 0-6 Units Subcutaneous Q24H Insulin lispro Subcutaneous 4x daily w/meals, HS Loratadine 10 mg Oral Daily magnesium oxide 400 mg Oral BID nystatin 1 Application Topical BID Pantoprazole 40 mg Oral Daily rOPINIRole 0.5 mg Oral QHS sacubitril-valsartan 1 tablet Oral Q12H Spironolactone 25 mg Oral Daily Discussed with team on rounds. This plan will be discussed with Dr. Moe Bernard MD, the attending needle control cheniller. DISCHARGE PLANNING: Dispo/Debility -Home with services Follow Up Appointments: No Follow Up needed in Heart Failure Clinic Please Ensure Follow Up Labs / Testing are scheduled: TBD CHAPITO Palmer HF2/Advanced Heart Failure Phone: [phone] Cosigned by Moe Bernard MD at 01/04/2025 7:08 PM EDT Associated attestation - Moe Bernard MD - 01/04/2025 7:08 PM EDT I saw and personally examined the patient today with the advanced practice provider on rounds. I provided a substantive portion of the care for this patient. I personally performed all aspects of the medical decision making for this encounter. I agree with the history, examination, and medical decision making as noted by the advanced practice provider except as documented. Briefly: 59 y.o. female with a PMH significant for ICM/HFrEF, s/p ICD, HTN, HLD, Type II DM with chronic neuropathy, obesity, gout, RLS, allergic rhinitis and recent MRSA bacteremia on vacomycin who presented to the [facility] ED on 12/20/24 with c/o recurrent fevers, N/V and lumbar back pain #MRSA bacteremia: RESISTOR INSPECTOR device removed. Cultures cleared. MRI spine with leptomeningeal enhancement. CT head and LP today. Continue abx per ID team #HTN: Continue coreg, entresto, fahad #Chronic systolic heart failure (recovered): Continue coreg, entresto, fahad Moe Bernard MD Advanced Heart Failure/Transplant Cardiology Procedure and Vascular Access Pre-Procedure Evaluation Note A consult has been placed for a lumbar puncture on this patient. This is a diagnostic procedure. For this procedure, laterality is N/A. Diagnostic labs have been ordered by the referring team. If not these will need to be ordered prior to the procedure. Labwork has been reviewed: Lab Results Component Value Date INR 1.1 01/02/2025 Lab Results Component Value Date PLATELET 256 01/04/2025 Hemoglobin Date/Time Value Ref Range Status 01/04/2025 03:51 AM 9.3 (L) 11.4 - 15.2 g/dL Final HEMOGLOBIN (HGB) Date/Time Value Ref Range Status 10/05/2013 07:46 AM 12.4 11.7 - 15.5 g/dL Final Current Allergies: Allergies Allergen Reactions Latex redness, rash Metformin Messes with heart rhythm Simvastatin myalgia Tape [*Adhesive Tape] itching Code status is FULL The patient is able to provide consent. Consent will be obtained and matches procedure being performed. PLAN - Relevant imaging has been reviewed: MRI lumbar spine without lesions/tumors. Head CT pending - Labs are acceptable to proceed with the procedure. - Medication list has been reviewed. There is not medication to hold. - Patient is not required to be NPO. - The estimated start time for this procedure is 01/04/[address] results. PVAT MIRACLE: CHAPITO Hahn Contact # [phone] Heart Failure 2/Advanced Heart Failure Progress Note Provider: CHAPITO Palmer IDENTIFYING INFORMATION PATIENT: Michelle Jules, 1965, [id number] LOS: 11 Code Status: Full Code Daily Plan: Plan of Care for Today: - Spine MRI concerning for infection vs malignancy, neurology and ID following with plans for LP 01/04/25 - Continue daptomycin with weekly CK monitoring - Repeat blood cultures sent 01/03/25 - New device placement pending clear cultures x 72 hr Subjective/Interval Note Overnight Issues: No acute overnight events. Reports generalized pruritus, worse at pacemaker extraction site secondary to irritation from adhesive dressing. Denies other complaints. Reiterated importance of avoiding touching pacemaker extraction incision and keeping dressing in place. I/O: UO 3100 ml + 1 occurrence, net -1761 ml/24 hr; Net IO Since Admission: -13,756.95 mL [01/03/25 0939] Daily Weight: Admission weight: 118.7 kg Current weight: Weight: 113.8 kg (250 lb 14.4 oz) (standing) Diet: DIET NPO with meds DIET CARB CONTROLLED Telemetry personally reviewed: SR, ventricular paced DVT Prophylaxis: Lovenox held for possible procedure(s) Activity: Cardiac rehab and Occupational Therapy Fall Risk: Assessed for patient fall risk and discussed safety measures during rounding. Hospital Course: Michelle Jules is a 59 y.o. female with a PMH significant for ICM/HFrEF, s/p ICD, HTN, HLD, Type II DM with chronic neuropathy, obesity, gout, RLS, allergic rhinitis and recent MRSA bacteremia on vacomycin who presented to the [facility] ED on 12/20/24 with c/o recurrent fevers, N/V and lumbar back pain. Tm 102.1. She had been receiving vancomycin via PICC line (EOT 01/02) but the last couple days she was having trouble with the line and did not receive some doses of her antibiotic. ID was consulted there and blood cultures from 12/20 revealed MRSA. Her vancomycin was continued. She was transferred for consideration of device lead extraction. Primary Diagnosis: MRSA bacteremia (with sepsis 11/2024) Pt originally diagnosed with MRSA bacteremia at an [facility] and started on IV vanco and DC with PICC with EOT planned for 01/02/2025. She represented to [facility] with fever, N/V and had missed some of her doses of Vanco 2/2 issues with her PICC line. She had a KANDY at the [facility] which she reports at negative during her original admission. When she presented again, they repeated blood cultures which again came back positive for MRSA. She was then transferred to [facility] to evaluate need for device extraction. She also had concerns of back pain with her new presentation and will undergo imagining of her spine to rule out infectious source. She underwent removal of device and leads 12/29/24. - Infectious workup to date: 12/20: BC x 2 from [facility] positive for MRSA 12/23: BC with no growth 12/24: BC with no growth 12/28: CT cervical and thoracic spine without evidence of acute infection 12/29: BC x2 positive for MRSA 12/29: device culture positive for MRSA 12/30: BC x2 with gram positive cocci 12/31: NGTD 09/16 01/01: NGTD 07/19 01/01: CRP and ESR elevated, NADINE pending 01/02: BC NGTD 07/19 01/03: BC pending - ID following: MRI spine (01/01/25) concerning for infection vs malignancy, LP scheduled for 01/04/25 CT chest/abdomen/pelvis (01/02/25) negative for findings of metastatic disease Daptomycin 8 mg/kg every 24 hours started 12/25/24 with weekly CK monitoring Daily blood cultures after device removal - can replace device when blood cultures negative for 72 hr - Oxycodone 5 mg Q6H PRN for device extraction site pain Lab Results Component Value Date WBC 6.48 01/03/2025 WBC 6.70 01/02/2025 Lumbar spine pain - improved Has chronic lumbar pain 2/2 arthritis, pain was worse on admission. Prior CT showed severe degenerative disease. CT spine cervical/thoracic (12/29/24): No evidence of acute infection. Did not complete lumbar portion of exam - clinically correlate need to image further, CT image completed through L2 MRI cervical/thoracic/lumbar spine (01/01/25): Scattered leptomeningeal enhancement along the spinal cord and involving the cauda equina given the clinical history, this is suggestive of an infectious etiology such as meningitis although is nonspecific. In the absence of a known history of cancer, leptomeningeal carcinomatosis is unlikely. - LP scheduled for 01/04/25 as discussed above Chronic systolic heart failure (HFrEF) / non-ischemic cardiomyopathy NYHA class II, ACC/AHA C EF 60-65%, LVIDD: 5.7 on TTE 12/24 Lab Results Component Value Date NTERMINALPRO 395 (H) 12/23/2024 Diuresis: None Beta blockade: carvedilol 25 mg BID --> continue ACEi / ARB / ARNI: Entresto 24/26 mg BID --> continue MRA: Spironolactone 25 mg daily --> continue SGLT2i: None Vasodilator: None Inotrope: None ICD / RESISTOR INSPECTOR: RESISTOR INSPECTOR-D removed 12/29/24, okay to reimplant device once blood cultures negative 72 hours per ID - Heart Healthy 4 gram Na diet with 2L fluid restriction - Weigh daily - Strict I/O Hypertensive Heart Disease - Medications as described above BP Readings from Last 3 Encounters: 01/03/25 112/56 01/28/14 100/57 10/05/13 118/74 Hyperlipidemia - Continue home atorvastatin 10 mg Lab Results Component Value Date CHOLESTEROL 124 12/23/2024 TRIG 138 12/23/2024 HDL 26 (L) 12/23/2024 LDLCALC 70 12/23/2024 Electrolyte Monitoring - Maintain K > 4, Mg > 2 - Replete PRN - Daily CHEM - Na: hyponatremia, continue to monitor Lab Results Component Value Date SODIUM 138 01/03/2025 SODIUM 131 (L) 01/02/2025 SODIUM 135 01/01/2025 - K+ Lab Results Component Value Date POTASSIUM 4.1 01/03/2025 POTASSIUM 4.4 01/02/2025 POTASSIUM 4.2 01/01/2025 - Cl Lab Results Component Value Date CHLORIDE 101 01/03/2025 CHLORIDE 97 (L) 01/02/2025 CHLORIDE 99 01/01/2025 - Mg Lab Results Component Value Date MAGNESIUM 2.1 01/03/2025 MAGNESIUM 2.0 01/02/2025 MAGNESIUM 2.2 01/01/2025 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 - Suspect drop in Hgb likely secondary to device removal, continue to monitor - No acute indication for transfusion - Consider IV iron once infection ruled out - Monitor CBC Lab Results Component Value Date HGB 9.0 (L) 01/03/2025 HGB 8.8 (L) 01/02/2025 HGB 10.3 (L) 01/01/2025 Lab Results Component Value Date IRON 65 12/23/2024 FERRITIN 63.6 12/23/2024 Lab Results Component Value Date TRANSFERRIN 268 12/23/2024 Lab Results Component Value Date TIBC 335 12/23/2024 Lab Results Component Value Date IRONSATURAT 19 (L) 12/23/2024 Diabetes Mellitus Type 2 with peripheral neuropathy Home regimen: glargine 40 units BID plus sliding scale with weekly Trulicity - Insulin Lispro 4 unts daily AC and HS with SS - Endo following and guiding hyperglycemia treatment, refer to most recent note - Continue home gabapentin 300 mg daily Recent Labs 01/02/25 0623 01/02/25 1101 01/02/25 1548 01/03/25 0311 01/03/25 0313 01/03/25 0746 GLUCOSE 168 206* 168 118 111 159 Lab Results Component Value Date HGBA1C 10.8 (H) 12/23/2024 Restless leg syndrome - Continue home ropinirole 0.5 mg at bedtime Mood disorder - Continue home duloxetine Obesity (Body mass index is 36.99 kg/m .; Class I= 30-34.9, Class II= 35-39.9, Class III= > 40; <19 -consider cardiac cachexia) Secondary to excess caloric intake and decreased caloric expenditure - Patient given education regarding Lifestyle Modification Complexity. Obesity, Class II Body mass index is 37.05 kg/m . - Follow with PCP for dietary and lifestyle modifications. Wound Documentation Pacemaker/Defibrillator Site 12/29/24 1400 (Active) Placement Date/Time: 12/29/24 1400 Location: left upper chest Wound Surgical Sheath Site 12/29/24 141 Right Femoral (Active) Date First Assessed/Time First Assessed: 12/29/24 141 Primary Wound Type: Surgical Secondary Wound Type - Surgical: Sheath Site Present on Original Admission: No Wound Location Orientation: Right Location: Femoral Objective: Temp: [97.6 F (36.4 C)-99.2 F (37.3 C)] 98.6 F (37 C) Pulse (Heart Rate): [58-78] 62 Resp Rate: [16-19] 16 BP: (102-125)/(53-60) 112/56 O2 Sat (%): [92 %-99 %] 98 % Weight: [113.8 kg (250 lb 14.4 oz)] 113.8 kg (250 lb 14.4 oz) Body mass index is 37.05 kg/m . Physical Exam Constitutional: No distress. Eyes: Pupils are equal, round, and reactive to light. Neck: No JVD present. Cardiovascular: Normal rate, regular rhythm, S1 normal, S2 normal and normal heart sounds. Pulses: Radial pulses are 1+ on the right side and 1+ on the left side. Dorsalis pedis pulses are 1+ on the right side and 1+ on the left side. Posterior tibial pulses are 1+ on the right side and 1+ on the left side. Warm, near euvolemia Left subclavian incision dressing loose, site with surrounding ecchymosis without drainage Pulmonary/Chest: Effort normal and breath sounds normal. She has no wheezes. She has no rales. Tenderness is present which mimics chest pain. Surgical site tenderness left upper chest. Area soft, very tender to palpation. Noted echymosis left anterior axillary area. Abdominal: Soft. Bowel sounds are normal. Hypoactive bowel sounds all quadrants Musculoskeletal: General: Tenderness (left subclavian incision) present. Edema: 1+ BLE edema. Cervical back: Normal range of motion and neck supple. Neurological: She is alert and oriented to person, place, and time. Skin: Skin is warm and dry. Left subclavian incision site dressing clean/dry/intact with out hematoma or erythema but tender to palpation Patient Lines/Drains/Airways Status Active Lines, Drains, Airways, & Wound Overview Name Placement date Placement time Site Days Peripheral IV Line - Single Lumen 12/26/24 1527 blue cephalic vein (lateral side of arm), left 22 gauge 12/26/24 1527 -- 7 Peripheral IV Line - Single Lumen 12/29/24 0924 forearm, anterior, left 18 gauge;1 1/4 in length 12/29/24 0924 -- 5 Pacemaker/Defibrillator Site 12/29/24 1400 12/29/24 1400 -- 4 Wound Surgical Sheath Site 12/29/24 1416 Right Femoral 12/29/24 1416 Femoral 4 Data Review: ECHOCARDIOGRAM 01/28/2014 Transthoracic Echocardiogram: Conclusions 1. Normal left ventricular size with mod-severely reduced systolic function, LVEF 25-30%. 2. Normal right ventricular size with mild-mod reduced systolic function. 3. Wire in RA/RV. 4. No significant valvular heart disease. 5. Compared to the study from 07/2013 there has been mild improvement in systolic function. ECHOCARDIOGRAM 12/25/2024 KANDY: Interpretation Summary Technically challenging study, sub-optimal image quality, even with the use of contrast. Left Ventricle: Chamber size is normal. Normal wall thickness. Normal global systolic function. Regional wall motion is normal regional wall motion not well visualized. Ejection fraction is normal (60 - 65%). Diastolic function is normal. Right Ventricle: Right ventricle not well visualized. Chamber size is mildly enlarged. Systolic function is normal. Device wire is present. Valves not well visualized overall, but no overt vegetations noted on limited assessment. No hemodynamically significant valvular disease. No echo/Doppler evidence for pulmonary hypertension. Estimated right ventricular systolic pressure is 29 mmHg. Small pericardial effusion adjacent to the right ventricle without evidence of tamponade. Left Heart Measurements LV - Systole LVIDD 5.7 cm IVS 0.91 cm LVIDS 5 cm PW 0.86 cm LV RWT 0.3 LV Mass Index 83.3 g/m2 LV EDV BP 124 mL LV ESV BP 46 mL BP EF 63 % LV stroke volume BP (ml) 78 mL LV stroke volume index BP 33.62 mL/m2 LV - Diastole MV pk E sirena 1 m/s MV pk A sirena 0.8 m/s E/A ratio 1.25 e' septal pk sirena 0.06 m/s e' lateral pk sirena 0.09 m/s Avg e' pk sirena 0.08 m/s E/e' septal ratio 16.67 E/e' lateral ratio 11.11 Avg E/e' ratio 13.89 LV - HCM AV LVOT peak gradient 3 mmHg Left Atrium LA ESV SP 4CH (MOD) 52 mL LA ESV SP 2CH (MOD) 44 mL LA ESV BP (MOD) index 21 mL/m2 Right Heart Measurements RV - 2D RV basal diam 4.4 cm RV mid diam 4.1 cm RV long diam 7.6 cm RV - Doppler RV S' 2.1 cm/s Right Atrium RA vol index 4CH (MOD) 27.16 mL/m2 EST RAP 8 mmHg RA area 4CH (MOD) [address] Chest w/o Contrast IMPRESSION: 1. No suspicious consolidative or nodular opacity in the lungs. 2. Extensive multivessel coronary artery calcifications. carveDILOL 25 mg Oral Q12H DAPTOmycin 8 mg/kg (Adjusted) Intravenous Q24H [Held by provider] enoxaparin 40 mg Subcutaneous Daily Gabapentin 300 mg Oral Daily insulin glargine 50 Units Subcutaneous Q12HNS Insulin lispro 0-6 Units Subcutaneous Q24H Insulin lispro Subcutaneous 4x daily w/meals, HS Loratadine 10 mg Oral Daily magnesium oxide 400 mg Oral BID nystatin 1 Application Topical BID Pantoprazole 40 mg Oral Daily rOPINIRole 0.5 mg Oral QHS sacubitril-valsartan 1 tablet Oral Q12H Spironolactone 25 mg Oral Daily Discussed with team on rounds. This plan will be discussed with Dr. Wallace Lugo MD, the attending needle control cheniller. DISCHARGE PLANNING: Dispo/Debility -Home with services Follow Up Appointments: No Follow Up needed in Heart Failure Clinic Please Ensure Follow Up Labs / Testing are scheduled: TBD CHAPITO Palmer HF2/Advanced Heart Failure Phone: [phone] Heart Failure 2/Advanced Heart Failure Progress Note Provider: CHAPITO Palmer IDENTIFYING INFORMATION PATIENT: Michelle Jules, 1965, [id number] LOS: 10 Code Status: Full Code Daily Plan: Plan of Care for Today: - Spine MRI concerning for infection vs malignancy, neurology and ID following - LP ordered for 01/04/25 - Continue daptomycin with weekly CK monitoring - Repeat blood cultures sent 01/02/25 - New device placement pending clear cultures x 72 hr Subjective/Interval Note Overnight Issues: No acute overnight events. Ambulating in hallway. No complaints I/O: UO 2400 + 3 occurrences, net -1330 ml/24 hr; Net IO Since Admission: -12,655.95 mL [01/02/25 1900] Daily Weight: Admission weight: 118.7 kg Current weight: Weight: 113.8 kg (250 lb 14.4 oz) Diet: DIET HEART HEALTHY - 4 GM SODIUM Fluid Restriction 2000mL (1000mL Nursing, 1000mL Nutrition); Carb Controlled DIET NPO with meds Telemetry personally reviewed: SR, ventricular paced DVT Prophylaxis: Lovenox held for possible procedure(s) Activity: Cardiac rehab and Occupational Therapy Fall Risk: Assessed for patient fall risk and discussed safety measures during rounding. Hospital Course: Michelle Jules is a 59 y.o. female with a PMH significant for ICM/HFrEF, s/p ICD, HTN, HLD, Type II DM with chronic neuropathy, obesity, gout, RLS, allergic rhinitis and recent MRSA bacteremia on vacomycin who presented to the [facility] ED on 12/20/24 with c/o recurrent fevers, N/V and lumbar back pain. Tm 102.1. She had been receiving vancomycin via PICC line (EOT 01/02) but the last couple days she was having trouble with the line and did not receive some doses of her antibiotic. ID was consulted there and blood cultures from 12/20 revealed MRSA. Her vancomycin was continued. She was transferred for consideration of device lead extraction. Primary Diagnosis: MRSA bacteremia (with sepsis 11/2024) Pt originally diagnosed with MRSA bacteremia at an [facility] and started on IV vanco and DC with PICC with EOT planned for 01/02/2025. She represented to [facility] with fever, N/V and had missed some of her doses of Vanco 2/2 issues with her PICC line. She had a KANDY at the [facility] which she reports at negative during her original admission. When she presented again, they repeated blood cultures which again came back positive for MRSA. She was then transferred to [facility] to evaluate need for device extraction. She also had concerns of back pain with her new presentation and will undergo imagining of her spine to rule out infectious source. She underwent removal of device and leads 12/29/24. - Infectious workup to date: 12/20: BC x 2 from [facility] positive for MRSA 12/23: BC with no growth 12/24: BC with no growth 12/28: CT cervical and thoracic spine without evidence of acute infection 12/29: BC x2 positive for MRSA 12/29: device culture positive for MRSA 12/30: BC x2 with gram positive cocci 12/31: NGTD 08/19 01/01: NGTD 07/19 01/01: CRP and ESR elevated, NADINE pending 01/02: BC pending - ID following: MRI spine (01/01/25) concerning for infection vs malignancy, LP scheduled for 01/04/25 CT chest/abdomen/pelvis (01/02/25) negative for findings of metastatic disease Daptomycin 8 mg/kg every 24 hours started 12/25/24 with weekly CK monitoring Daily blood cultures after device removal - can replace when negative for 72 hr - Oxycodone 5 mg Q6H PRN for device extraction site pain Lab Results Component Value Date WBC 6.70 01/02/2025 WBC 12.05 (H) 01/01/2025 Lumbar spine pain - improved Has chronic lumbar pain 2/2 arthritis, pain was worse on admission. Prior CT showed severe degenerative disease. CT spine cervical/thoracic (12/29/24): No evidence of acute infection. Did not complete lumbar portion of exam - clinically correlate need to image further, CT image completed through L2 MRI cervical/thoracic/lumbar spine (01/01/25): Scattered leptomeningeal enhancement along the spinal cord and involving the cauda equina given the clinical history, this is suggestive of an infectious etiology such as meningitis although is nonspecific. In the absence of a known history of cancer, leptomeningeal carcinomatosis is unlikely. - LP scheduled for 01/04/25 as discussed above Chronic systolic heart failure (HFrEF) / non-ischemic cardiomyopathy NYHA class II, ACC/AHA C EF 60-65%, LVIDD: 5.7 on TTE 12/24 Lab Results Component Value Date NTERMINALPRO 395 (H) 12/23/2024 Diuresis: None Beta blockade: carvedilol 25 mg BID --> continue ACEi / ARB / ARNI: Entresto 24/26 mg BID --> continue MRA: Spironolactone 25 mg daily --> continue SGLT2i: None Vasodilator: None Inotrope: None ICD / RESISTOR INSPECTOR: RESISTOR INSPECTOR-D removed on 12/29, okay to reimplant if blood cultures negative 72 hours per ID - Heart Healthy 4 gram Na diet with 2L fluid restriction - Weigh daily - Strict I/O Hypertensive Heart Disease - Medications as described above BP Readings from Last 3 Encounters: 01/02/25 102/58 01/28/14 100/57 10/05/13 118/74 Hyperlipidemia - Continue home atorvastatin 10 mg Lab Results Component Value Date CHOLESTEROL 124 12/23/2024 TRIG 138 12/23/2024 HDL 26 (L) 12/23/2024 LDLCALC 70 12/23/2024 Electrolyte Monitoring - Maintain K > 4, Mg > 2 - Replete PRN - Daily CHEM - Na: hyponatremia, continue to monitor Lab Results Component Value Date SODIUM 131 (L) 01/02/2025 SODIUM 135 01/01/2025 SODIUM 131 (L) 12/31/2024 - K+ Lab Results Component Value Date POTASSIUM 4.4 01/02/2025 POTASSIUM 4.2 01/01/2025 POTASSIUM 3.9 12/31/2024 - Cl Lab Results Component Value Date CHLORIDE 97 (L) 01/02/2025 CHLORIDE 99 01/01/2025 CHLORIDE 99 12/31/2024 - Mg Lab Results Component Value Date MAGNESIUM 2.0 01/02/2025 MAGNESIUM 2.2 01/01/2025 MAGNESIUM 1.9 12/31/2024 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 - Suspect drop in Hgb likely secondary to device removal, continue to monitor - No acute indication for transfusion - Consider IV iron once infection ruled out - Monitor CBC Lab Results Component Value Date HGB 8.8 (L) 01/02/2025 HGB 10.3 (L) 01/01/2025 HGB 10.0 (L) 12/31/2024 Lab Results Component Value Date IRON 65 12/23/2024 FERRITIN 63.6 12/23/2024 Lab Results Component Value Date TRANSFERRIN 268 12/23/2024 Lab Results Component Value Date TIBC 335 12/23/2024 Lab Results Component Value Date IRONSATURAT 19 (L) 12/23/2024 Diabetes Mellitus Type 2 with peripheral neuropathy Home regimen: glargine 40 units BID plus sliding scale with weekly Trulicity - Insulin Lispro 4 unts daily AC and HS with SS - Endo following and guiding hyperglycemia treatment, refer to most recent note - Continue home gabapentin 300 mg daily Recent Labs 01/01/25 2038 01/02/25 0136 01/02/25 0319 01/02/25 0623 01/02/25 1101 01/02/25 1548 GLUCOSE 226* 228* 189* 168 206* 168 Lab Results Component Value Date HGBA1C 10.8 (H) 12/23/2024 Restless leg syndrome - Continue home ropinirole 0.5 mg at bedtime Mood disorder - Continue home duloxetine Obesity (Body mass index is 36.99 kg/m .; Class I= 30-34.9, Class II= 35-39.9, Class III= > 40; <19 -consider cardiac cachexia) Secondary to excess caloric intake and decreased caloric expenditure - Patient given education regarding Lifestyle Modification Complexity. Hyponatremia - Secondary to fluid shifts. Monitor. Obesity, Class II Body mass index is 37.05 kg/m . - Follow with PCP for dietary and lifestyle modifications. Wound Documentation Pacemaker/Defibrillator Site 12/29/24 1400 (Active) Placement Date/Time: 12/29/24 1400 Location: left upper chest Wound Surgical Sheath Site 12/29/24 1416 Right Femoral (Active) Date First Assessed/Time First Assessed: 12/29/24 1416 Primary Wound Type: Surgical Secondary Wound Type - Surgical: Sheath Site Present on Original Admission: No Wound Location Orientation: Right Location: Femoral Objective: Temp: [97.6 F (36.4 C)-98.7 F (37.1 C)] 97.6 F (36.4 C) Pulse (Heart Rate): [58-82] 68 Resp Rate: [18-22] 18 BP: (102-110)/(53-58) 102/58 O2 Sat (%): [94 %-98 %] 97 % Weight: [113.8 kg (250 lb 14.4 oz)] 113.8 kg (250 lb 14.4 oz) Body mass index is 37.05 kg/m . Physical Exam Constitutional: No distress. Eyes: Pupils are equal, round, and reactive to light. Neck: No JVD present. Cardiovascular: Normal rate, regular rhythm, S1 normal, S2 normal and normal heart sounds. Pulses: Radial pulses are 1+ on the right side and 1+ on the left side. Dorsalis pedis pulses are 1+ on the right side and 1+ on the left side. Posterior tibial pulses are 1+ on the right side and 1+ on the left side. Warm, nearing euvolemia Pulmonary/Chest: Effort normal and breath sounds normal. She has no wheezes. She has no rales. Tenderness is present which mimics chest pain. Surgical site tenderness left upper chest. Area soft, very tender to palpation. Noted echymosis left anterior axillary area. Abdominal: Soft. Hypoactive bowel sounds all quadrants Musculoskeletal: General: No edema (1+ BLE edema). Cervical back: Normal range of motion and neck supple. Neurological: She is alert and oriented to person, place, and time. Skin: Skin is warm and dry. Left subclavian incision site dressing clean/dry/intact with out hematoma or erythema but tender to palpation Patient Lines/Drains/Airways Status Active Lines, Drains, Airways, & Wound Overview Name Placement date Placement time Site Days Peripheral IV Line - Single Lumen 12/26/24 1527 blue cephalic vein (lateral side of arm), left 22 gauge 12/26/24 1527 -- 7 Peripheral IV Line - Single Lumen 12/29/24 0924 forearm, anterior, left 18 gauge;1 07/18 in length 12/29/24 0924 -- 4 Pacemaker/Defibrillator Site 12/29/24 1400 12/29/24 1400 -- 4 Wound Surgical Sheath Site 12/29/24 1416 Right Femoral 12/29/24 1416 Femoral 4 Data Review: ECHOCARDIOGRAM 01/28/2014 Transthoracic Echocardiogram: Conclusions 1. Normal left ventricular size with mod-severely reduced systolic function, LVEF 25-30%. 2. Normal right ventricular size with mild-mod reduced systolic function. 3. Wire in RA/RV. 4. No significant valvular heart disease. 5. Compared to the study from 07/2013 there has been mild improvement in systolic function. ECHOCARDIOGRAM 12/25/2024 KANDY: Interpretation Summary Technically challenging study, sub-optimal image quality, even with the use of contrast. Left Ventricle: Chamber size is normal. Normal wall thickness. Normal global systolic function. Regional wall motion is normal regional wall motion not well visualized. Ejection fraction is normal (60 - 65%). Diastolic function is normal. Right Ventricle: Right ventricle not well visualized. Chamber size is mildly enlarged. Systolic function is normal. Device wire is present. Valves not well visualized overall, but no overt vegetations noted on limited assessment. No hemodynamically significant valvular disease. No echo/Doppler evidence for pulmonary hypertension. Estimated right ventricular systolic pressure is 29 mmHg. Small pericardial effusion adjacent to the right ventricle without evidence of tamponade. Left Heart Measurements LV - Systole LVIDD 5.7 cm IVS 0.91 cm LVIDS 5 cm PW 0.86 cm LV RWT 0.3 LV Mass Index 83.3 g/m2 LV EDV BP 124 mL LV ESV BP 46 mL BP EF 63 % LV stroke volume BP (ml) 78 mL LV stroke volume index BP 33.62 mL/m2 LV - Diastole MV pk E sirena 1 m/s MV pk A sirena 0.8 m/s E/A ratio 1.25 e' septal pk sirena 0.06 m/s e' lateral pk sirena 0.09 m/s Avg e' pk sirena 0.08 m/s E/e' septal ratio 16.67 E/e' lateral ratio 11.11 Avg E/e' ratio 13.89 LV - HCM AV LVOT peak gradient 3 mmHg Left Atrium LA ESV SP 4CH (MOD) 52 mL LA ESV SP 2CH (MOD) 44 mL LA ESV BP (MOD) index 21 mL/m2 Right Heart Measurements RV - 2D RV basal diam 4.4 cm RV mid diam 4.1 cm RV long diam 7.6 cm RV - Doppler RV S' 2.1 cm/s Right Atrium RA vol index 4CH (MOD) 27.16 mL/m2 EST RAP 8 mmHg RA area 4CH (MOD) [address] Chest w/o Contrast IMPRESSION: 1. No suspicious consolidative or nodular opacity in the lungs. 2. Extensive multivessel coronary artery calcifications. carveDILOL 25 mg Oral Q12H DAPTOmycin 8 mg/kg (Adjusted) Intravenous Q24H [Held by provider] enoxaparin 40 mg Subcutaneous Daily Gabapentin 300 mg Oral Daily insulin glargine 50 Units Subcutaneous Q12HNS Insulin lispro 0-6 Units Subcutaneous Q24H Insulin lispro Subcutaneous 4x daily w/meals, HS Loratadine 10 mg Oral Daily magnesium oxide 400 mg Oral BID nystatin 1 Application Topical BID Pantoprazole 40 mg Oral Daily rOPINIRole 0.5 mg Oral QHS sacubitril-valsartan 1 tablet Oral Q12H Spironolactone 25 mg Oral Daily Discussed with team on rounds. This plan will be discussed with Dr. Wallace Lugo MD, the attending needle control cheniller. DISCHARGE PLANNING: Dispo/Debility -Home with services Follow Up Appointments: No Follow Up needed in Heart Failure Clinic Please Ensure Follow Up Labs / Testing are scheduled: TBD CHAPITO Palmer HF2/Advanced Heart Failure Phone: [phone] Cosigned by Wallace Lugo MD at 01/03/2025 8:12 AM EDT Associated attestation - Wallace Lugo MD - 01/03/2025 8:12 AM EDT HF 2 Attending Attestation: I saw and personally examined this patient on 6/21/25 during inpatient rounds with the HF MIRACLE on the HF2 service. I provided a substantive portion of care for this patient. I personally reviewed and interpreted test results and I have performed all aspects of the medical decision making for this encounter. I have reviewed and verified this documentation and it accurately reflects our care. 59 yo female with hx of cardiomyopathy, ASCVD, HFimpEF (last LVEF in 2022 was NL at [facility]), and RESISTOR INSPECTOR-D. She was recently evaluated at [facility] ED for recurrent fevers, N/V, low back pain, Temp as high as 102. She had received vancomycin. Blood Cx from 12/20 pos for MRSA. She is referred to [facility] for evaluation and concern for device infection. From a HF perspective she has been very stable and no recent HF hospitalizations. As noted, she has had significant improvement of LVEF per most recent echo at [facility]. She states that she had chronic LBBB and LVEF improved post RESISTOR INSPECTOR. Plan: - I.D. consult - done - continue daptomycin. - EP consult - extraction completed - Plan spine MRI now that device is extracted --> done - I.D and Neurology evaluating. LP planned for 01/04. - monitor BCx to determine appropriate timing of re-implant. Wallace Lugo M.D. [employer] Advanced Heart Failure Program Division of Cardiovascular Medicine [facility] [email or web address] ph [phone] fax [phone] Heart Failure 2/Advanced Heart Failure Progress Note Provider: Bekah Ann APRN-[employer]CEIVING [employer]HER IDENTIFYING INFORMATION PATIENT: Michelle Jules, 1965, [id number] LOS: 9 Code Status: Full Code Daily Plan: Plan of Care for Today: - Device removed 12/29 per EP, site stable but painful, oxycodone PRN - ID following, spine MRI read pending, continue daptomycin with weekly CK monitoring - Repeat blood cultures sent 01/01/25 - New device placement pending clear cultures x 72 hr Subjective/Interval Note Overnight Issues: No acute overnight events. Ambulating in hallway. No complaints I/O: UO 1000 ml, Net +461 ml/24 hr, Net IO Since Admission: -10,045.95 mL [01/01/25 1637] Daily Weight: Admission weight: 118.7 kg Current weight: Weight: 114.3 kg (251 lb 14.4 oz) (standing) Diet: DIET HEART HEALTHY - 4 GM SODIUM Fluid Restriction 2000mL (1000mL Nursing, 1000mL Nutrition); Carb Controlled Telemetry personally reviewed: SR, ventricular paced DVT Prophylaxis: Lovenox Activity: Cardiac rehab and Occupational Therapy Fall Risk: Assessed for patient fall risk and discussed safety measures during rounding. Hospital Course: Michelle Jules is a 59 y.o. female with a PMH significant for ICM/HFrEF, s/p ICD, HTN, HLD, Type II DM with chronic neuropathy, obesity, gout, RLS, allergic rhinitis and recent MRSA bacteremia on vacomycin who presented to the [facility] ED on 12/20/24 with c/o recurrent fevers, N/V and lumbar back pain. Tm 102.1. She had been receiving vancomycin via PICC line (EOT 01/02) but the last couple days she was having trouble with the line and did not receive some doses of her antibiotic. ID was consulted there and blood cultures from 12/20 revealed MRSA. Her vancomycin was continued. She was transferred for consideration of device lead extraction. Primary Diagnosis: MRSA bacteremia (with sepsis 11/2024) Pt originally diagnosed with MRSA bacteremia at an [facility] and started on IV vanco and DC with PICC with EOT planned for 01/02/2025. [facility] [facility], N/V and had missed some of her doses of Vanco 2/2 issues with her PICC line. She had a KANDY at the [facility] which she reports at negative during her original admission. When she presented again, they repeated blood cultures which again came back positive for MRSA. She was then transferred to [facility] to evaluate need for device extraction. She also had concerns of back pain with her new presentation and will undergo imagining of her spine to rule out infectious source. She underwent removal of device and leads 12/29/24. - Infectious workup to date: 12/20: BC x 2 from [facility] positive for MRSA 12/23: BC with no growth 12/24: BC with no growth 12/28: CT cervical and thoracic spine without evidence of acute infection 12/29: BC x2 positive for MRSA 12/29: device culture positive for MRSA 12/30: BC x2 with gram positive cocci 12/31: NGTD 07/19 01/01: BC pending - ID following: KANDY with possible lead veg, possible but less likely MV veg, thickened AV. 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 vancomycin stopped 12/24/24 daptomycin 8 mg/kg every 24 hours started 12/25/24 with weekly CK monitoring repeat blood cultures after device removal - can replace when negative for 72 hr MRI spine completed, read pending - Oxycodone 5 mg Q6H PRN for device extraction site pain Lab Results Component Value Date WBC 12.05 (H) 01/01/2025 WBC 9.19 12/31/2024 Lumbar spine pain - improved Has chronic lumbar pain 2/2 arthritis, pain was worse on admission. Prior CT showed severe degenerative disease. CT spine cervical/thoracic (12/29/24): No evidence of acute infection. Did not complete lumbar portion of exam - clinically correlate need to image further, CT image completed through L2 - MRI spine completed, read pending Chronic systolic heart failure (HFrEF) / non-ischemic cardiomyopathy NYHA class II, ACC/AHA C EF 60-65%, LVIDD: 5.7 on TTE 12/24 Lab Results Component Value Date NTERMINALPRO 395 (H) 12/23/2024 Diuresis: None Beta blockade: carvedilol 25 mg BID --> continue ACEi / ARB / ARNI: Entresto 24/26 mg BID --> continue MRA: Spironolactone 25 mg daily --> continue SGLT2i: None Vasodilator: None Inotrope: None ICD / RESISTOR INSPECTOR: RESISTOR INSPECTOR-D removed on 12/29, okay to reimplant if blood cultures negative 72 hours per ID - Heart Healthy 4 gram Na diet with 2L fluid restriction - Weigh daily - Strict I/O Hypertensive Heart Disease - Medications as described above BP Readings from Last 3 Encounters: 01/01/25 107/51 01/28/14 100/57 10/05/13 118/74 Hyperlipidemia - Continue home atorvastatin 10 mg Lab Results Component Value Date CHOLESTEROL 124 12/23/2024 TRIG 138 12/23/2024 HDL 26 (L) 12/23/2024 LDLCALC 70 12/23/2024 Electrolyte Monitoring - Maintain K > 4, Mg > 2 - Replete PRN - Daily CHEM - Na: hyponatremia, continue to monitor Lab Results Component Value Date SODIUM 135 01/01/2025 SODIUM 131 (L) 12/31/2024 SODIUM 129 (L) 12/30/2024 - K+ Lab Results Component Value Date POTASSIUM 4.2 01/01/2025 POTASSIUM 3.9 12/31/2024 POTASSIUM 4.3 12/30/2024 - Cl Lab Results Component Value Date CHLORIDE 99 01/01/2025 CHLORIDE 99 12/31/2024 CHLORIDE 96 (L) 12/30/2024 - Mg Lab Results Component Value Date MAGNESIUM 2.2 01/01/2025 MAGNESIUM 1.9 12/31/2024 MAGNESIUM 1.8 12/30/2024 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 - Suspect drop in Hgb likely secondary to device removal, continue to monitor - No acute indication for transfusion - Consider IV iron once MRI completed - Monitor CBC Lab Results Component Value Date HGB 10.3 (L) 01/01/2025 HGB 10.0 (L) 12/31/2024 HGB 10.8 (L) 12/30/2024 Lab Results Component Value Date IRON 65 12/23/2024 FERRITIN 63.6 12/23/2024 Lab Results Component Value Date TRANSFERRIN 268 12/23/2024 Lab Results Component Value Date TIBC 335 12/23/2024 Lab Results Component Value Date IRONSATURAT 19 (L) 12/23/2024 Diabetes Mellitus Type 2 with peripheral neuropathy Home regimen: glargine 40 units BID plus sliding scale with weekly Trulicity - Insulin Lispro 4 unts daily AC and HS with SS - Endo following and guiding hyperglycemia treatment, refer to most recent note - Continue home gabapentin 300 mg daily Recent Labs 12/31/24 1936 01/01/25 0145 01/01/25 0310 01/01/25 0627 01/01/25 1102 01/01/25 1543 GLUCOSE 207* 96 115 117 198* 219* Lab Results Component Value Date HGBA1C 10.8 (H) 12/23/2024 Restless leg syndrome - Continue home ropinirole 0.5 mg at bedtime Mood disorder - Continue home duloxetine Obesity (Body mass index is 36.99 kg/m .; Class I= 30-34.9, Class II= 35-39.9, Class III= > 40; <19 -consider cardiac cachexia) Secondary to excess caloric intake and decreased caloric expenditure - Patient given education regarding Lifestyle Modification Complexity. Obesity, Class II Body mass index is 37.2 kg/m . - Follow with PCP for dietary and lifestyle modifications. Wound Documentation Pacemaker/Defibrillator Site 12/29/24 1400 (Active) Placement Date/Time: 12/29/24 1400 Location: left upper chest Wound Surgical Sheath Site 12/29/24 1416 Right Femoral (Active) Date First Assessed/Time First Assessed: 12/29/24 1416 Primary Wound Type: Surgical Secondary Wound Type - Surgical: Sheath Site Present on Original Admission: No Wound Location Orientation: Right Location: Femoral Objective: Temp: [97.6 F (36.4 C)-99.5 F (37.5 C)] 98.4 F (36.9 C) Pulse (Heart Rate): [60-85] 69 Resp Rate: [18-20] 18 BP: (101-129)/(50-61) 107/51 O2 Sat (%): [93 %-99 %] 94 % Weight: [114.3 kg (251 lb 14.4 oz)] 114.3 kg (251 lb 14.4 oz) Body mass index is 37.2 kg/m . Physical Exam Constitutional: No distress. Eyes: Pupils are equal, round, and reactive to light. Neck: No JVD present. Cardiovascular: Normal rate, regular rhythm, S1 normal, S2 normal and normal heart sounds. Pulses: Radial pulses are 1+ on the right side and 1+ on the left side. Dorsalis pedis pulses are 1+ on the right side and 1+ on the left side. Posterior tibial pulses are 1+ on the right side and 1+ on the left side. Warm, nearing euvolemia Pulmonary/Chest: Effort normal and breath sounds normal. She has no wheezes. She has no rales. Tenderness is present which mimics chest pain. Surgical site tenderness left upper chest. Area soft, very tender to palpation. Noted echymosis left anterior axillary area. Abdominal: Soft. Hypoactive bowel sounds all quadrants Musculoskeletal: General: No edema (1+ BLE edema). Cervical back: Normal range of motion and neck supple. Neurological: She is alert and oriented to person, place, and time. Skin: Skin is warm and dry. Left subclavian incision site dressing clean/dry/intact with out hematoma or erythema but tender to palpation Patient Lines/Drains/Airways Status Active Lines, Drains, Airways, & Wound Overview Name Placement date Placement time Site Days Peripheral IV Line - Single Lumen 12/26/24 1527 blue cephalic vein (lateral side of arm), left 22 gauge 12/26/24 1527 -- 6 Peripheral IV Line - Single Lumen 12/29/24 0924 forearm, anterior, left 18 gauge;1 1/4 in length 12/29/24 0924 -- 3 Pacemaker/Defibrillator Site 12/29/24 1400 12/29/24 1400 -- 3 Wound Surgical Sheath Site 12/29/24 1416 Right Femoral 12/29/24 1416 Femoral 3 Data Review: ECHOCARDIOGRAM 01/28/2014 Transthoracic Echocardiogram: Conclusions 1. Normal left ventricular size with mod-severely reduced systolic function, LVEF 25-30%. 2. Normal right ventricular size with mild-mod reduced systolic function. 3. Wire in RA/RV. 4. No significant valvular heart disease. 5. Compared to the study from 07/2013 there has been mild improvement in systolic function. ECHOCARDIOGRAM 12/25/2024 KANDY: Interpretation Summary Technically challenging study, sub-optimal image quality, even with the use of contrast. Left Ventricle: Chamber size is normal. Normal wall thickness. Normal global systolic function. Regional wall motion is normal regional wall motion not well visualized. Ejection fraction is normal (60 - 65%). Diastolic function is normal. Right Ventricle: Right ventricle not well visualized. Chamber size is mildly enlarged. Systolic function is normal. Device wire is present. Valves not well visualized overall, but no overt vegetations noted on limited assessment. No hemodynamically significant valvular disease. No echo/Doppler evidence for pulmonary hypertension. Estimated right ventricular systolic pressure is 29 mmHg. Small pericardial effusion adjacent to the right ventricle without evidence of tamponade. Left Heart Measurements LV - Systole LVIDD 5.7 cm IVS 0.91 cm LVIDS 5 cm PW 0.86 cm LV RWT 0.3 LV Mass Index 83.3 g/m2 LV EDV BP 124 mL LV ESV BP 46 mL BP EF 63 % LV stroke volume BP (ml) 78 mL LV stroke volume index BP 33.62 mL/m2 LV - Diastole MV pk E sirena 1 m/s MV pk A sirena 0.8 m/s E/A ratio 1.25 e' septal pk sirena 0.06 m/s e' lateral pk sirena 0.09 m/s Avg e' pk sirena 0.08 m/s E/e' septal ratio 16.67 E/e' lateral ratio 11.11 Avg E/e' ratio 13.89 LV - HCM AV LVOT peak gradient 3 mmHg Left Atrium LA ESV SP 4CH (MOD) 52 mL LA ESV SP 2CH (MOD) 44 mL LA ESV BP (MOD) index 21 mL/m2 Right Heart Measurements RV - 2D RV basal diam 4.4 cm RV mid diam 4.1 cm RV long diam 7.6 cm RV - Doppler RV S' 2.1 cm/s Right Atrium RA vol index 4CH (MOD) 27.16 mL/m2 EST RAP 8 mmHg RA area 4CH (MOD) [address] Chest w/o Contrast IMPRESSION: 1. No suspicious consolidative or nodular opacity in the lungs. 2. Extensive multivessel coronary artery calcifications. carveDILOL 25 mg Oral Q12H DAPTOmycin 8 mg/kg (Adjusted) Intravenous Q24H enoxaparin 40 mg Subcutaneous Daily Gabapentin 300 mg Oral Daily insulin glargine 50 Units Subcutaneous Q12HNS Insulin lispro 0-6 Units Subcutaneous Q24H Insulin lispro Subcutaneous 4x daily w/meals, HS Loratadine 10 mg Oral Daily magnesium oxide 400 mg Oral BID nystatin 1 Application Topical BID Pantoprazole 40 mg Oral Daily rOPINIRole 0.5 mg Oral QHS sacubitril-valsartan 1 tablet Oral Q12H Spironolactone 25 mg Oral Daily Discussed with team on rounds. This plan will be discussed with Dr. Wallace Lugo MD, the attending needle control cheniller. DISCHARGE PLANNING: Dispo/Debility -Home with services Follow Up Appointments: No Follow Up needed in Heart Failure Clinic Please Ensure Follow Up Labs / Testing are scheduled: TBD CHAPITO Palmer HF2/Advanced Heart Failure Phone: [phone] Cosigned by Wallace Lugo MD at 01/01/2025 6:25 PM EDT Associated attestation - Wallace Lugo MD - 01/01/2025 6:25 PM EDT HF 2 Attending Attestation: I saw and personally examined this patient on 01/01/25 during inpatient rounds with the HF MIRACLE on the HF2 service. I provided a substantive portion of care for this patient. I personally reviewed and interpreted test results and I have performed all aspects of the medical decision making for this encounter. I have reviewed and verified this documentation and it accurately reflects our care. 59 yo female with hx of cardiomyopathy, ASCVD, HFimpEF (last LVEF in 2022 was NL at [facility]), and RESISTOR INSPECTOR-D. She was recently evaluated at [facility] ED for recurrent fevers, N/V, low back pain, Temp as high as 102. She had received vancomycin. Blood Cx from 12/20 pos for MRSA. She is referred to [facility] for evaluation and concern for device infection. From a HF perspective she has been very stable and no recent HF hospitalizations. As noted, she has had significant improvement of LVEF per most recent echo at [facility]. She states that she had chronic LBBB and LVEF improved post RESISTOR INSPECTOR. Plan: - Same HF meds - I.D. consult - done - continue daptomycin. - EP consult - extraction completed - Plan spine MRI now that device is extracted. - monitor BCx to determine appropriate timing of re-implant. Wallace Lugo M.D. [facility] de froid Advanced Heart Failure Program Division of Cardiovascular Medicine [facility] [email or web address] ph [phone] fax [phone] Inpatient Cardiopulmonary Rehab Follow Up Visit AND Activity Session Completed. RN approved, as tolerated, and patient agreeable to visit. Patient reports feeling okay without complaints. Activity Session Vitals: 01/01/25 1044 01/01/25 1048 Vital Signs Pulse (Heart Rate) 66 (pre amb) 85 (post amb) Heart Rate Source Monitor Monitor BP 105/57 102/50 MAP (mmHg) 77 mmHg 71 mmHg BP Method Automatic Automatic BP Location Right arm Right arm BP Position Lying Lying Activity/Level of Assistance Amb in mendoza/SBA Ambulation Distance (feet) 250 Symptoms Noted During/After Activity none Positioning Supine, HoB, call light within reach telemetry all intact upon leaving the room Activity session details: Patient agreeable and tolerated 250ft in hallway. She did not report to have any signs or symptoms after walking. She requested to lay in bed to hopefully take a nap after the walk. RN notified/aware. Encouraged continued ambulation and discussed appropriate activity progression. Discharge education reviewed with the patient. Patient s questions/concerns addressed. Mariah Ferreira, MS ([phone]) IP Cardiopulmonary & Vascular Rehab [facility] Inpatient Diabetes Consults - Progress Note- For provider needle control cheniller: QGENDA : TEAM 2 Assessment Uncontrolled type 2 diabetes with microvascular complications of neuropathy Admitted with MRSA and ICD infection A1c: 10.8% Risk: .None CONSULT SIGN OFF Thank you for allowing us to participate in the care of this patient. Our consult team will sign off today, 01/01/2025. If you have any further questions regarding the care of this patient, please do not hesitate to reach out to our team. QGenda->[facility]-> Internal Medicine-> Endocrinology & Metabolism-> TEAM 2 for provider needle control cheniller. Plan Hospital Plan: Continue current plan, ensure all carbohydrates are covered. Basal: Glargine 50 units Q12 Prandial: Insulin lispro 1 unit for every 2 grams of carbohydrates Correction: Insulin Lispro 3 units for every 25 mg/dl greater than 150mg/dl achs Education: discussed plan Fall Risk: Assessed for patient fall risk and discussed safety measures during rounding. We will review glucoses; however, primary team should continue to check blood glucoses daily and reach out to our service with urgent issues DIABETES DISCHARGE PLAN Please contact our team on day of discharge for definitive recs. QGENDA :TEAM 2 Tentative discharge plan: (Please use the Diabetes Discharge Order Set: Diabetes Orders - for those patients discharged on INSULIN) - If orals or non-insulin injectables recommended, will need to order them outside of the Diabetes Orderset. -Resume Trulicity SGLT2i: could consider as eGFR is adequate Discharge Diet: DIET CARB CONTROLLED- 60 Grams per Meal Patient Education: Your target blood sugar is 80-130 mg/dl fasting and under 180 mg/dl nonfasting. Patient needs new insulin scripts at discharge: ASK PATIENT. Basal/Mealtime - Basal: U100 Glargine PENS with needles, dose 50 units every 12 hours. (Or insurance covered equivalent.) No Titration. - Mealtime time insulin: FixedvsFlexible: Fixed: U100 Lispro Pens with Pen Lackey MAX DAILY DOSE 150 units 30 Units for Large Meal or 15 Units for Small Meal PLUS Correction Scale Subcutaneous every meal and at bedtime Correction Scale: (Copy and paste into Note to Pharmacy) Custom: 150-200 = 3 unit 201-250 = 6 units 251-300 = 9 units 301-350 = 12 units 351-400 = 15 units Diabetes Supplies: Does not need new scripts for supplies. The patient will need script for new glucometer: no: Patient prefers any brand or substitute brand covered by insurance Continuous Glucose Monitoring Devices: Continue home CGM (does not need new script) Other Diabetes Supplies: Glucagon (Baqsimi Two Pack) 3 MG/DOSE Powder Follow up needed: Does not need [facility] Endocrinology appt PCP within 1- 2 weeks She would benefit from DM Education but would want to do it locally as she lives about [place] here. CC: Hyperglycemia History of Present Illness: Michelle Jules is a 59 y.o. year old female who is seen at the bedside. Cr 0.74. Patient is eating well, no nausea. Blood glucoses remain elevated after meals despite large doses of insulin. Suspect patient is snacking in between meals. Current Diet Orders Procedures DIET HEART HEALTHY - 4 GM SODIUM Fluid Restriction 2000mL (1000mL Nursing, 1000mL Nutrition); Carb Controlled Strict carb coverage, please. Please document in flowsheet all carbs consumed from meal trays (even if the number is zero) and record snack carbs consumed to better assist with determining glycemic management. Thank you. Standing Status: Standing Number of Occurrences: 1 Additional Modifier:: Fluid Restriction 2000mL (1000mL Nursing, 1000mL Nutrition) Additional Modifier:: Carb Controlled Current Regimen: Basal: Glargine 50 units Q12 Prandial: Insulin lispro 1 unit for every 2 grams of carbohydrates Correction: Insulin Lispro 3 units for every 25 mg/dl greater than 150mg/dl achs Daily Glucose Review: Date Daily glucose review TDD Basal Prandial/ Correction 12/28/2024 223/260, 340, 337, 258, 201 120 80 40 12/29/2024 249, 179 122 86 36 12/30/24 321(s), 355, 241, 156, 178 12/31/2024 153(s), 163, 169, 197, 265, 246, 305, 207 233 100 133 01/01/2025 96(s), 115, 117, 198 Review of Systems Diabetes: Negative for symptoms of hypoglycemia Respiratory: Negative for shortness of breath Gastrointestinal: Negative for abdominal pain or nausea All other systems negative. Physical Exam Constitutional: Well-developed, well-nourished, obese female in no acute distress. Pulmonary/Chest: Respirations even and unlabored. Musculoskeletal: No acute abnormalities noted Neurological: Alert and interactive Psych: Cooperative Temp: [97.6 F (36.4 C)-99.5 F (37.5 C)] 98.8 F (37.1 C) Pulse (Heart Rate): [60-92] 62 Resp Rate: [18-20] 20 BP: (94-129)/(50-61) 108/50 O2 Sat (%): [91 %-99 %] 96 % Weight: [114.3 kg (251 lb 14.4 oz)] 114.3 kg (251 lb 14.4 oz)Admission (Dosing) Weight: 118.7 kg (261 lb 11.2 oz) Most recent entered Weight: 114.3 kg (251 lb 14.4 oz) (standing) Body mass index is 37.2 kg/m . Background History Michelle Jules is a 59 y.o. 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 BG range since arrival has been 130-359, then 340 this morning. She is eating without problems. Diet is heart healthy without carb control and no carb counts have been documented.she has been receiving corrective doses of insulin lispro that have not been able to prevent the hyperglycemia. Diabetes History: Type of Diabetes: Type 2 Diabetes Mellitus (T2DM) Diagnosis (aprox date): 2002 Family History: T2DM: mother grandparent(s) Outpatient Clinic: PCP Prior regiments: issues with past DM medications: Metformin - affected patient's heart rhythm Steglatro - concern for BRIANA, Scr increased after starting Home regimen: Basal: insulin glargine 36 units q12 hour Prandial: insulin lispro unknown ICR. Typical dose is 33 units per meal Correction: insulin lispro unknown correction dosing Noninsulin injectables: Trulicity 3mg every sat Orals: glyburide (last filled September 2024 for 30 day supply) BP: carvedilol, lasix, and Entresto Heart Failure: no SGLT2i therapy Lipids: atorvastatin Diabetes Complications: peripheral neuropathy, cardiovascular disease, heart failure, and MASLD Date of most recent dilated eye exam: 2023 Tobacco/Nicotine: She reports that she has never smoked. She does not have any smokeless tobacco history on file. DKA occurrences: none History of Pancreatitis: no History of GMI or UTI: None Home blood glucoses: glucose meter: One Touch Verio and Freestyle Libre3+ using reader (not phone) Hypoglycemia: daily to weekly Recent A1c: Lab Results Component Value Date HGBA1C 10.8 (H) 12/23/2024 Lab Results Component Value Date CHOLESTEROL 124 12/23/2024 TRIG 138 12/23/2024 HDL 26 (L) 12/23/2024 LDLCALC 70 12/23/2024 Lab Results Component Value Date SODIUM 135 01/01/2025 POTASSIUM 4.2 01/01/2025 CHLORIDE 99 01/01/2025 CO2 27 01/01/2025 BUN 10 01/01/2025 CREATSERUM 0.74 01/01/2025 GLUCOSE 117 01/01/2025 No results found for: CREATURINE, MICROALBUMIN, MICALBCREAT Lab Results Component Value Date ALT 14 12/23/2024 No results found for: PREALBUMIN Cardiac echo: EF = Results for orders placed during the hospital encounter of 12/23/24 ECHOCARDIOGRAM TRANSESOPHAGEAL (KANDY) 12/25/2024 (Final) Interpretation Summary KANDY for evaluation of MRSA bacteremia. Possible small filamentous echodensity associated with either the coronary sinus or RV lead, not well seen There is nonspecific thickening of the aortic valve with fibrinous stranding Minimal amount of filamentous stranding present on the atrial side of the mitral valve, more consistent with age related degenerative changes, less likely to represent infection. Left ventricular systolic function is mildly reduced, estimated LVEF ~45-50%. Right ventricular size and systolic function are normal. No thrombus in the left atrium, left atrial appendage, or right atrium. Mild MR. Mild TR. RVSP of 28 mmHg plus right atrial pressure No evidence of interatrial shunt by color Doppler and negative bubble contrast study. Grade 2 aortic atherosclerosis noted in the descending aorta. Trivial to small pericardial effusion. ID Team 3 (SOT) Follow-up Note: Reason for follow up: Seeing patient for MRSA bacteremia Identifying information Name: Michelle Jules Date of : 1965 LOS: 9 Subjective The patient was seen and examined at bedside. No significant events overnight. MRI done last night Doing well this morning and denied nausea, vomiting, diarrhea, abdominal pain, chest pain, dyspnea or any other symptoms. Back pain is stable otherwise ROS All systems reviewed and negative unless stated above Antimicrobials Daptomycin 12/24-current Current medications As reviewed in the electronic medical record and confirmed from history and/or chart review. Physical Exam Temp: [97.6 F (36.4 C)-99.5 F (37.5 C)] 97.6 F (36.4 C) Pulse (Heart Rate): [60-92] 60 Resp Rate: [18-20] 18 BP: (94-129)/(51-61) 129/61 O2 Sat (%): [91 %-99 %] 93 % Weight: [114.3 kg (251 lb 14.4 oz)] 114.3 kg (251 lb 14.4 oz) Physical Exam GEN: Awake EYES: no scleral icterus HENT: MMM. NECK: Supple CARDIO: RRR, no murmur. PULM/CHEST: CTAB. No increased work of breathing. Dressing covering site of device extraction ABD: Normal bowel sounds, soft, not tender or distended. SKIN: No rashes. NEURO: AOx3. No focal deficits. Psych: normal affect Labs Lab Results Component Value Date WBC 12.05 (H) 01/01/2025 HGB 10.3 (L) 01/01/2025 HCT 32.2 (L) 01/01/2025 PLATELET 185 01/01/2025 MCV 89.9 01/01/2025 Lab Results Component Value Date CREATSERUM 0.74 01/01/2025 Lab Results Component Value Date ALT 14 12/23/2024 AST 14 12/23/2024 ALKPHOS 108 12/23/2024 BILITOTAL 0.3 12/23/2024 BILIDIRECT <0.1 12/23/2024 No results found for: SEDRATE No results found for: CRP Microbiology Data (personally reviewed) Blood cultures: 12/20/24 (OSH): MRSA (S to tetracycline and TMP-SMX) 12/21/24 (OSH): MRSA 12/24/24 (OSH): NGTD 12/29/24 - MRSA 12/30/24 - MRSA 12/31/24- in process Diagnostics and Imaging (personally reviewed) XR CHEST 1 VIEW PORTABLE, 12/23/2024 -Left subclavian 3-lead ICD with lead tips in the right atrium, right ventricle -Stable exam with clear lungs. KANDY, 12/25/24 -Possible small filamentous echodensity associated with either the coronary sinus or RV lead. There is nonspecific thickening of the aortic valve with fibrinous stranding Impression Michelle Jules is a 59 y.o. female with a PMH of ICM/HFrEF, s/p ICD, and recent MRSA bacteremia on vacomycin who presented on 12/23/2024 as a transfer from [facility] for the management of MRSA bacteremia. Relapsed MRSA bacteremia - likely in the setting of an infected ICD s/p extraction 12/29, repeat blood cultures are positive. No evidence of infection on MRI. ICM/HFrEF s/p ICD High-risk medication use - Daptomycin is a high risk medication that requires monitoring of CK at baseline and weekly due to risk of rhabdomyolysis. Estimated Creatinine Clearance: 112 mL/min (by C-G formula based on SCr of 0.74 mg/dL). Recommendations Diagnostics: Follow-up blood cultures Monitor CK weekly while on daptomycin Therapeutics: Continue IV daptomycin 8 mg/kg daily Isolation: standard ID Team 3 (SOT) Will continue to follow with you. If you have any questions, please reach out to the ID Team 3 (SOT) pager found in QGenda below. The ID Team pagers are available - Saturday through Saturday from 7:00 am to 06:00 pm. For emergent or after hour issues, please call the on-call ID/1st call Fellow pager. QGenda - [facility] Infectious Disease - Angel Stein [facility] Infectious Disease Fellow Division of Infectious Diseases Cosigned by Abbey Cruz MD at 01/01/2025 12:32 PM EDT Associated attestation - Abbey Cruz MD - 01/01/2025 12:32 PM EDT ID ATTENDING NOTE: I agree with Dr. Stein's note below. I have edited the note to reflect my thoughts including the history, physical exam, and medical decisions. I have independently interviewed and examined the patient on 01/01/25, and I discussed the findings and therapeutic plan with the fellow, and we collaborated on medical decision making for this patient. Briefly, Mrs. Jules reports that she is overall doing ok today. She reports improvement in left upper chest pain at pacemaker removal site today. She had her MRI spine completed overnight, and reports that lower back pain is stable today. She reports no fevers, chills, shortness of breath, cough, nausea, vomiting, abdominal pain, diarrhea, or skin rashes/lesions. Patient s/p device removal on 12/29 with OR cultures positive for MRSA. Blood cultures from yesterday negative to date and pending. On physical exam, patient is resting comfortably, well-appearing, and in no acute distress. She was sitting in a chair at bedside when seen today. EOMI and no scleral icterus. No oral lesions. Fair dentition. Neck is supple with no cervical lymphadenopathy. Heart with RRR and no murmurs. No pedal edema. Patient on room air when seen today. Lungs CTAB with no increased work of breathing, wheezing, or crackles. Abdomen soft, not tender, not distended. No skin rashes/lesions. Dressing over left upper chest previous pacemaker site today. Patient AOx3. No focal neuro deficits. Moves all 4 extremities. Mrs. Jules is a 59-year-old female with past medical history significant for NICM/HFrEF s/p ICD, hypertension, hyperlipidemia, T2DM with chronic neuropathy, obesity, gout, RLS, and recent MRSA bacteremia admitted secondary to transfer from [facility] secondary to fevers, nausea, vomiting, and back pain. 1. Recurrent MRSA bacteremia: Patient with 1/2 blood cultures from 12/30 positive for MRSA. Blood cultures from yesterday negative to date and pending. She is currently on IV Daptomycin, and would recommend to continue on this antibiotic therapy at this time. MRI spine showing no evidence of discitis/osteomyelitis. Recommend weekly CK while on IV Daptomycin. 2. Lumbar back pain: CT spine completed through L2, and no evidence of infection. 3. HFrEF and NICM 4. High risk medication use: Patient is currently on IV daptomycin, which requires monitoring of CK to reduce risk of toxicity. 5. Estimated Creatinine Clearance: 112 mL/min (by C-G formula based on SCr of 0.74 mg/dL). ID Team 3 (Transplant) will continue to follow with you. Please page with any questions or concerns. Abbey Cruz MD Student Admissions Clerk Division of Infectious Diseases Pager #[phone] Heart Failure 2/Advanced Heart Failure Progress Note Provider: Bekah Ann APRN-SHIPPING AND RECEIVING WEIGHER IDENTIFYING INFORMATION PATIENT: Michelle Jules, 1965, [id number] LOS: 8 Code Status: Full Code Daily Plan: Plan of Care for Today: - ID following, recommend spine MRI prior to new device placement, continue daptomycin with weekly CK monitoring - Device removed 12/29 per EP, site stable but painful, oxycodone PRN - Device culture (12/29/24) positive for Staph aureus - Blood culture (12/30/24) positive for gram + cocci - Repeat blood cultures sent 12/31/24 - New device placement pending clear cultures x 72 hr - Resume Entresto - Resume lovenox 01/01/25 Subjective/Interval Note Overnight Issues: No acute overnight events. Ambulating in hallway. Only complaint is tenderness surrounding subclavian device extraction incision. I/O: UO 1000 ml, Net +461 ml/24 hr, Net IO Since Admission: -10,135.95 mL [12/31/24 1036] Daily Weight: Admission weight: 118.7 kg Current weight: Weight: 113.6 kg (250 lb 8 oz) (standing) Diet: DIET HEART HEALTHY - 4 GM SODIUM Fluid Restriction 2000mL (1000mL Nursing, 1000mL Nutrition); Carb Controlled Telemetry personally reviewed: SR, ventricular paced DVT Prophylaxis: Lovenox Activity: Cardiac rehab and Occupational Therapy Fall Risk: Assessed for patient fall risk and discussed safety measures during rounding. Hospital Course: Michelle Jules is a 59 y.o. female with a PMH significant for ICM/HFrEF, s/p ICD, HTN, HLD, Type II DM with chronic neuropathy, obesity, gout, RLS, allergic rhinitis and recent MRSA bacteremia on vacomycin who presented to the [facility] ED on 12/20/24 with c/o recurrent fevers, N/V and lumbar back pain. Tm 102.1. She had been receiving vancomycin via PICC line (EOT 01/02) but the last couple days she was having trouble with the line and did not receive some doses of her antibiotic. ID was consulted there and blood cultures from 12/20 revealed MRSA. Her vancomycin was continued. She was transferred for consideration of device lead extraction. Primary Diagnosis: MRSA bacteremia (with sepsis 11/2024) Pt originally diagnosed with MRSA bacteremia at an [facility] and started on IV vanco and DC with PICC with EOT planned for 01/02/2025. She represented to [facility] with fever, N/V and had missed some of her doses of Vanco 2/2 issues with her PICC line. She had a KANDY at the [facility] which she reports at negative during her original admission. When she presented again, they repeated blood cultures which again came back positive for MRSA. She was then transferred to [facility] to evaluate need for device extraction. She also had concerns of back pain with her new presentation and will undergo imagining of her spine to rule out infectious source. She underwent removal of device and leads 12/29/24. - Infectious workup to date: 12/20: BC x 2 from [facility] positive for MRSA 12/23: BC with no growth 12/24: BC with no growth 12/28: CT cervical and thoracic spine without evidence of acute infection 12/29: BC x2 positive for MRSA 12/29: device culture positive for MRSA 12/30: BC x2 with gram positive cocci 12/31: BC pending - ID following: KANDY with possible lead veg, possible but less likely MV veg, thickened AV. 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 vancomycin stopped 12/24/24 daptomycin 8 mg/kg every 24 hours started 12/25/24 with weekly CK monitoring repeat blood cultures after removal - can replace when negative for 72 hr consider MRI spine prior to device reimplantation - Oxycodone 5 mg Q6H PRN for device extraction site pain Lab Results Component Value Date WBC 9.19 12/31/2024 WBC 8.21 12/30/2024 Lumbar spine pain - improved Has chronic lumbar pain 2/2 arthritis, pain was worse on admission. Prior CT showed severe degenerative disease. CT spine cervical/thoracic (12/29/24): No evidence of acute infection. Did not complete lumbar portion of exam - clinically correlate need to image further, CT image completed through L2 - ID recommends MRI prior to device reimplantation Chronic systolic heart failure (HFrEF) / non-ischemic cardiomyopathy NYHA class II, ACC/AHA C EF 60-65%, LVIDD: 5.7 on TTE 12/24 Lab Results Component Value Date NTERMINALPRO 395 (H) 12/23/2024 Diuresis: None Beta blockade: carvedilol 25 mg BID --> continue ACEi / ARB / ARNI: Entresto 24/26 mg BID --> continue MRA: Spironolactone 25 mg daily --> continue SGLT2i: None Vasodilator: None Inotrope: None ICD / RESISTOR INSPECTOR: RESISTOR INSPECTOR-D removed on 12/29, okay to reimplant if blood cultures negative 72 hours per ID - Heart Healthy 4 gram Na diet with 2L fluid restriction - Weigh daily - Strict I/O Hypertensive Heart Disease - Medications as described above BP Readings from Last 3 Encounters: 12/31/24 109/51 01/28/14 100/57 10/05/13 118/74 Hyperlipidemia - Continue home atorvastatin 10 mg Lab Results Component Value Date CHOLESTEROL 124 12/23/2024 TRIG 138 12/23/2024 HDL 26 (L) 12/23/2024 LDLCALC 70 12/23/2024 Electrolyte Monitoring - Maintain K > 4, Mg > 2 - Replete PRN - Daily CHEM - Na: hyponatremia, continue to monitor Lab Results Component Value Date SODIUM 131 (L) 12/31/2024 SODIUM 129 (L) 12/30/2024 SODIUM 137 12/29/2024 - K+ Lab Results Component Value Date POTASSIUM 3.9 12/31/2024 POTASSIUM 4.3 12/30/2024 POTASSIUM 4.1 12/29/2024 - Cl Lab Results Component Value Date CHLORIDE 99 12/31/2024 CHLORIDE 96 (L) 12/30/2024 CHLORIDE 101 12/29/2024 - Mg Lab Results Component Value Date MAGNESIUM 1.9 12/31/2024 MAGNESIUM 1.8 12/30/2024 MAGNESIUM 2.2 12/29/2024 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 - Suspect drop in Hgb likely secondary to device removal, continue to monitor - No acute indication for transfusion - Consider IV iron once MRI completed - CBC every 3 days Lab Results Component Value Date HGB 10.0 (L) 12/31/2024 HGB 10.8 (L) 12/30/2024 HGB 12.7 12/29/2024 Lab Results Component Value Date IRON 65 12/23/2024 FERRITIN 63.6 12/23/2024 Lab Results Component Value Date TRANSFERRIN 268 12/23/2024 Lab Results Component Value Date TIBC 335 12/23/2024 Lab Results Component Value Date IRONSATURAT 19 (L) 12/23/2024 Diabetes Mellitus Type 2 with peripheral neuropathy Home regimen: glargine 40 units BID plus sliding scale with weekly Trulicity - Insulin Lispro 4 unts daily AC and HS with SS - Endo following and guiding hyperglycemia treatment, refer to most recent note - Continue home gabapentin 300 mg daily Recent Labs 12/30/24 1106 12/30/24 1632 12/30/24 2012 12/31/24 0318 12/31/24 0432 12/31/24 1010 GLUCOSE 241* 156 178 153 169 265* Lab Results Component Value Date HGBA1C 10.8 (H) 12/23/2024 Restless leg syndrome - Continue home ropinirole 0.5 mg at bedtime Mood disorder - Continue home duloxetine Obesity (Body mass index is 36.99 kg/m .; Class I= 30-34.9, Class II= 35-39.9, Class III= > 40; <19 -consider cardiac cachexia) Secondary to excess caloric intake and decreased caloric expenditure - Patient given education regarding Lifestyle Modification Complexity. Hyponatremia - Secondary to fluid shifts. Monitor. Obesity, Class II Body mass index is 36.99 kg/m . - Follow with PCP for dietary and lifestyle modifications. Wound Documentation Pacemaker/Defibrillator Site 12/29/24 1400 (Active) Placement Date/Time: 12/29/24 1400 Location: left upper chest Wound Surgical Sheath Site 12/29/24 1416 Right Femoral (Active) Date First Assessed/Time First Assessed: 12/29/24 1416 Primary Wound Type: Surgical Secondary Wound Type - Surgical: Sheath Site Present on Original Admission: No Wound Location Orientation: Right Location: Femoral Objective: Temp: [98.4 F (36.9 C)-99.7 F (37.6 C)] 98.7 F (37.1 C) Pulse (Heart Rate): [68-92] 92 Resp Rate: [14-20] 18 BP: (104-139)/(51-73) 109/51 O2 Sat (%): [85 %-96 %] 92 % Weight: [113.6 kg (250 lb 8 oz)] 113.6 kg (250 lb 8 oz) Body mass index is 36.99 kg/m . Physical Exam Constitutional: No distress. Eyes: Pupils are equal, round, and reactive to light. Neck: No JVD present. Cardiovascular: Normal rate, regular rhythm, S1 normal, S2 normal and normal heart sounds. Pulses: Radial pulses are 1+ on the right side and 1+ on the left side. Dorsalis pedis pulses are 1+ on the right side and 1+ on the left side. Posterior tibial pulses are 1+ on the right side and 1+ on the left side. Warm, nearing euvolemia Pulmonary/Chest: Effort normal and breath sounds normal. She has no wheezes. She has no rales. She exhibits no tenderness. Surgical site tenderness left upper chest. Area soft, very tender to palpation. Noted echymosis left anterior axillary area. Abdominal: Soft. Hypoactive bowel sounds all quadrants Musculoskeletal: General: Edema (1+ BLE edema) present. Cervical back: Normal range of motion and neck supple. Neurological: She is alert and oriented to person, place, and time. Skin: Skin is warm and dry. Left subclavian incision site dressing clean/dry/intact with out hematoma or erythema but tender to palpation Patient Lines/Drains/Airways Status Active Lines, Drains, Airways, & Wound Overview Name Placement date Placement time Site Days Peripheral IV Line - Single Lumen 12/23/24 2350 pink median cubital vein (antecubital fossa), right 20 gauge 12/23/24 2350 -- 7 Peripheral IV Line - Single Lumen 12/26/24 1527 blue cephalic vein (lateral side of arm), left 22 gauge 12/26/24 1527 -- 4 Peripheral IV Line - Single Lumen 12/29/24 0924 forearm, anterior, left 18 gauge;1 1/4 in length 12/29/24 0924 -- 2 Pacemaker/Defibrillator Site 12/29/24 1400 12/29/24 1400 -- 1 Wound Surgical Sheath Site 12/29/24 1416 Right Femoral 12/29/24 1416 Femoral 1 Data Review: ECHOCARDIOGRAM 01/28/2014 Transthoracic Echocardiogram: Conclusions 1. Normal left ventricular size with mod-severely reduced systolic function, LVEF 25-30%. 2. Normal right ventricular size with mild-mod reduced systolic function. 3. Wire in RA/RV. 4. No significant valvular heart disease. 5. Compared to the study from 07/2013 there has been mild improvement in systolic function. ECHOCARDIOGRAM 12/25/2024 KANDY: Interpretation Summary Technically challenging study, sub-optimal image quality, even with the use of contrast. Left Ventricle: Chamber size is normal. Normal wall thickness. Normal global systolic function. Regional wall motion is normal regional wall motion not well visualized. Ejection fraction is normal (60 - 65%). Diastolic function is normal. Right Ventricle: Right ventricle not well visualized. Chamber size is mildly enlarged. Systolic function is normal. Device wire is present. Valves not well visualized overall, but no overt vegetations noted on limited assessment. No hemodynamically significant valvular disease. No echo/Doppler evidence for pulmonary hypertension. Estimated right ventricular systolic pressure is 29 mmHg. Small pericardial effusion adjacent to the right ventricle without evidence of tamponade. Left Heart Measurements LV - Systole LVIDD 5.7 cm IVS 0.91 cm LVIDS 5 cm PW 0.86 cm LV RWT 0.3 LV Mass Index 83.3 g/m2 LV EDV BP 124 mL LV ESV BP 46 mL BP EF 63 % LV stroke volume BP (ml) 78 mL LV stroke volume index BP 33.62 mL/m2 LV - Diastole MV pk E sirena 1 m/s MV pk A sirena 0.8 m/s E/A ratio 1.25 e' septal pk sirena 0.06 m/s e' lateral pk sirena 0.09 m/s Avg e' pk sirena 0.08 m/s E/e' septal ratio 16.67 E/e' lateral ratio 11.11 Avg E/e' ratio 13.89 LV - HCM AV LVOT peak gradient 3 mmHg Left Atrium LA ESV SP 4CH (MOD) 52 mL LA ESV SP 2CH (MOD) 44 mL LA ESV BP (MOD) index 21 mL/m2 Right Heart Measurements RV - 2D RV basal diam 4.4 cm RV mid diam 4.1 cm RV long diam 7.6 cm RV - Doppler RV S' 2.1 cm/s Right Atrium RA vol index 4CH (MOD) 27.16 mL/m2 EST RAP 8 mmHg RA area 4CH (MOD) [address] Chest w/o Contrast IMPRESSION: 1. No suspicious consolidative or nodular opacity in the lungs. 2. Extensive multivessel coronary artery calcifications. carveDILOL 25 mg Oral Q12H DAPTOmycin 8 mg/kg (Adjusted) Intravenous Q24H [Held by provider] enoxaparin 40 mg Subcutaneous Daily Gabapentin 300 mg Oral Daily insulin glargine 50 Units Subcutaneous Q12HNS Insulin lispro 0-6 Units Subcutaneous Q24H Insulin lispro Subcutaneous 4x daily w/meals, HS Loratadine 10 mg Oral Daily magnesium oxide 400 mg Oral BID nystatin 1 Application Topical BID Pantoprazole 40 mg Oral Daily rOPINIRole 0.5 mg Oral QHS sacubitril-valsartan 1 tablet Oral Q12H Spironolactone 25 mg Oral Daily Discussed with team on rounds. This plan will be discussed with Dr. Wallace Lugo MD, the attending needle control cheniller. DISCHARGE PLANNING: Dispo/Debility -Home with services Follow Up Appointments: No Follow Up needed in Heart Failure Clinic Please Ensure Follow Up Labs / Testing are scheduled: SRAVAND CHAPITO Palmer HF2/Advanced Heart Failure Phone: [phone] Cosigned by Wallace Lugo MD at 12/31/2024 6:39 PM EDT Associated attestation - Wallace Lugo MD - 12/31/2024 6:39 PM EDT HF 2 Attending Attestation: I saw and personally examined this patient on 12/31/24 during inpatient rounds with the HF MIRACLE on the HF2 service. I provided a substantive portion of care for this patient. I personally reviewed and interpreted test results and I have performed all aspects of the medical decision making for this encounter. I have reviewed and verified this documentation and it accurately reflects our care. 59 yo female with hx of cardiomyopathy, ASCVD, HFimpEF (last LVEF in 2022 was NL at [facility]), and RESISTOR INSPECTOR-D. She was recently evaluated at [facility] ED for recurrent fevers, N/V, low back pain, Temp as high as 102. She had received vancomycin. Blood Cx from 12/20 pos for MRSA. She is referred to [facility] for evaluation and concern for device infection. From a HF perspective she has been very stable and no recent HF hospitalizations. As noted, she has had significant improvement of LVEF per most recent echo at [facility]. She states that she had chronic LBBB and LVEF improved post RESISTOR INSPECTOR. Plan: - Same HF meds - I.D. consult - done - continue daptomycin. - EP consult - extraction completed - Plan spine MRI now that device is extracted. - monitor BCx to determine appropriate timing of re-implant. Wallace Lugo M.D. chef de froid Advanced Heart Failure Program Division of Cardiovascular Medicine [facility] [email or web address] ph [phone] fax [phone] Inpatient Cardiopulmonary Rehab Follow Up Visit AND Activity Session Completed. RN approved, as tolerated, and patient agreeable to visit. Patient reports feeling okay without complaints. Activity Session Vitals: 12/31/24 0943 12/31/24 0948 Vital Signs Pulse (Heart Rate) 71 (pre amb) 92 (post amb) Heart Rate Source Monitor Monitor BP 104/54 109/51 MAP (mmHg) 74 mmHg 73 mmHg BP Method Automatic Automatic BP Location Right arm Right arm BP Position Sitting Sitting Activity/Level of Assistance Amb in mendoza/SBA Ambulation Distance (feet) 250 Symptoms Noted During/After Activity none Positioning Seated in chair, call light within reach telemetry all intact upon leaving the room Activity session details: Patient agreeable and tolerated ambulation in mendoza without complaints at this time. RN notified/aware. Encouraged continued ambulation and discussed appropriate activity progression. Discharge education reviewed with the patient. Patient s questions/concerns addressed. Mariah Ferreira, [phone]) IP Cardiopulmonary & Vascular Rehab ID Team 3 (SOT) Follow-up Note: Reason for follow up: Seeing patient for MRSA bacteremia Identifying information Name: Michelle Jules Date of : 1965 LOS: 8 Subjective The patient was seen and examined at bedside. No significant events overnight. Underwent device extraction yesterday Reports worsening back pain ROS All systems reviewed and negative unless stated above Antimicrobials Daptomycin 12/24-current Current medications As reviewed in the electronic medical record and confirmed from history and/or chart review. Physical Exam Temp: [98.4 F (36.9 C)-99.7 F (37.6 C)] 98.8 F (37.1 C) Pulse (Heart Rate): [68-93] 68 Resp Rate: [14-20] 18 BP: (102-139)/(57-73) 112/57 O2 Sat (%): [85 %-96 %] 96 % Weight: [113.6 kg (250 lb 8 oz)] 113.6 kg (250 lb 8 oz) Physical Exam GEN: Awake EYES: no scleral icterus HENT: MMM. NECK: Supple CARDIO: RRR, no murmur. PULM/CHEST: CTAB. No increased work of breathing. Dressing covering site of device extraction ABD: Normal bowel sounds, soft, not tender or distended. SKIN: No rashes. NEURO: AOx3. No focal deficits. Psych: normal affect Labs Lab Results Component Value Date WBC 9.19 12/31/2024 HGB 10.0 (L) 12/31/2024 HCT 30.8 (L) 12/31/2024 PLATELET 170 12/31/2024 MCV 87.7 12/31/2024 Lab Results Component Value Date CREATSERUM 0.81 12/31/2024 Lab Results Component Value Date ALT 14 12/23/2024 AST 14 12/23/2024 ALKPHOS 108 12/23/2024 BILITOTAL 0.3 12/23/2024 BILIDIRECT <0.1 12/23/2024 No results found for: SEDRATE No results found for: CRP Microbiology Data (personally reviewed) Blood cultures: 12/20/24 (OSH): MRSA (S to tetracycline and TMP-SMX) 12/21/24 (OSH): MRSA 12/24/24 (OSH): NGTD 12/29/24 - MRSA 12/30/24 - MRSA Diagnostics and Imaging (personally reviewed) XR CHEST 1 VIEW PORTABLE, 12/23/2024 -Left subclavian 3-lead ICD with lead tips in the right atrium, right ventricle -Stable exam with clear lungs. KANDY, 12/25/24 -Possible small filamentous echodensity associated with either the coronary sinus or RV lead. There is nonspecific thickening of the aortic valve with fibrinous stranding Impression Michelle Jules is a 59 y.o. female with a PMH of ICM/HFrEF, s/p ICD, and recent MRSA bacteremia on vacomycin who presented on 12/23/2024 as a transfer [facility] management of MRSA bacteremia. Relapsed MRSA bacteremia - likely in the setting of an infected ICD s/p extraction 12/29, repeat blood cultures are positive. Back pain - would obtain MRI to rule out OM or epidural abscesses ICM/HFrEF s/p ICD High-risk medication use - Daptomycin is a high risk medication that requires monitoring of CK at baseline and weekly due to risk of rhabdomyolysis. Estimated Creatinine Clearance: 102 mL/min (by C-G formula based on SCr of 0.81 mg/dL). Recommendations Diagnostics: Repeat blood cultures Recommend MRI entire spines Monitor CK weekly while on daptomycin Therapeutics: Continue IV daptomycin 8 mg/kg daily Isolation: standard ID Team 3 (SOT) Will continue to follow with you. If you have any questions, please reach out to the ID Team 3 (SOT) pager found in QGenda below. The ID Team pagers are available - Saturday through Saturday from 7:00 am to 06:00 pm. For emergent or after hour issues, please call the on-call ID/1st call Fellow pager. [facility]Genda - [facility] Infectious Disease - Angel Stein [facility] Infectious Disease Fellow Division of Infectious Diseases Cosigned by Abbey Cruz MD at 12/31/2024 2:14 PM EDT Associated attestation - Abbey Cruz MD - 12/31/2024 2:14 PM EDT ID ATTENDING NOTE: I agree with Dr. Stein's note below. I have edited the note to reflect my thoughts including the history, physical exam, and medical decisions. I have independently interviewed and examined the patient on 12/31/24, and I discussed the findings and therapeutic plan with the fellow, and we collaborated on medical decision making for this patient. Briefly, Mrs. Jules reports that she is overall doing ok today. She does report left upper chest pain at pacemaker removal site, but improved today compared to yesterday. She does report some lumbar back pain today. She reports no fevers, chills, shortness of breath, cough, nausea, vomiting, abdominal pain, diarrhea, or skin rashes/lesions. Patient s/p device removal on 12/29 with OR cultures positive for MRSA. Blood cultures from yesterday positive 2 for MRSA. On physical exam, patient is resting comfortably, well-appearing, and in no acute distress. She was sitting in a chair at bedside when seen today. EOMI and no scleral icterus. No oral lesions. Fair dentition. Neck is supple with no cervical lymphadenopathy. Heart with RRR and no murmurs. No pedal edema. Patient on room air when seen today. Lungs CTAB with no increased work of breathing, wheezing, or crackles. Abdomen soft, not tender, not distended. No skin rashes/lesions. Patient AOx3. No focal neuro deficits. Moves all 4 extremities. Mrs. Jules is a 59-year-old female with past medical history significant for NICM/HFrEF s/p ICD, hypertension, hyperlipidemia, T2DM with chronic neuropathy, obesity, gout, RLS, and recent MRSA bacteremia admitted secondary to transfer from [facility] secondary to fevers, nausea, vomiting, and back pain. 1. Recurrent MRSA bacteremia: Patient with 1/2 blood cultures from yesterday positive for MRSA. Recommend to repeat blood cultures today. She is currently on IV Daptomycin, and would recommend to continue on this antibiotic therapy at this time. Mrs. Jules also reports ongoing lower back pain. Would recommend MRI spine given recurrent MRSA bacteremia and cardiac device currently removed and able to have MRI spine completed. Recommend weekly CK while on IV Daptomycin. 2. Lumbar back pain: CT spine completed through L2, and no evidence of infection. Would recommend MRI spine. 3. HFrEF and NICM 4. High risk medication use: Patient is currently on IV daptomycin, which requires monitoring of CK to reduce risk of toxicity. 5. Estimated Creatinine Clearance: 102 mL/min (by C-G formula based on SCr of 0.81 mg/dL). ID Team 3 (Transplant) will continue to follow with you. Please page with any questions or concerns. Abbey Cruz MD Student Admissions Clerk Division of Infectious Diseases Pager #[phone] NUTRITION RISK SCREENING NOTE Nutrition Risk Factors Identified: current admit, skin breakdown/wound Nutrition Plan of Care: 1. Diet Order: (recommend add carb controlled to current diet order due to hx DM2.) 2. Oral Supplement: no oral supplements warranted at this time 3. Follow up: monitor for significant weight changes, monitor for GI symptoms, monitor skin integrity, encourage PO intake with goal of 75%, pet care technician to follow __ Michelle Jules is a 59 y.o. female admitted with MRSA bacteremia. Past medical history reviewed in chart: significant for ICM/HFrEF, s/p ICD, HTN, HLD, Type II DM with chronic neuropathy, obesity, gout, RLS, allergic rhinitis and recent MRSA bacteremia on vancomycin. Diet order: DIET HEART HEALTHY - 4 GM SODIUM Fluid Restriction 2000mL (1000mL Nursing, 1000mL Nutrition); Carb Controlled Nutrition Risk Factor Screening Nutrition Screen Indicator: admission 7 days or greater Nutrition Interview: at bedside Appetite: good Pt reported eating well prior to admit and continues to eat well since admit. She had a few food dislikes which I removed from her menu and I put in her lunch request for today. Pt did not want any oral nutrition supplements, encouraged pt to consume adequate protein intake to help with wound healing. Documented po: Per doc flow sheet: Date Breakfast Lunch Dinner 12/25 -% 100% 75% 12/26 75% 100% 100% 12/27 100% 75% -% 12/28 100% 100% 100% 12/29 0% -% 75%, snack 100% Po average over past five days is 83% of 12 meals. Patient c/o: constipation (pt stated she is taking Miralax.) GI: Last Bowel Movement: 12/26/24 Chewing / Swallowing Problems: no issues with chewing and/or swallowing Cultural or Sabianism Restrictions/Preferences: no peas, no pears, I removed from her pt menu Food Allergies: none Skin Integrity / Tadeo Score Reviewed: yes Tadeo Score: 19 Active Wounds: Pacemaker/Defibrillator Site 12/29/24 1400 (1) Wound Surgical Sheath Site 12/29/24 1416 Right Femoral (1) Edema: none Net IO Since Admission: -9,885.95 mL [12/30/24 1450] Weight Changes: Weight Changes: no Anthropometrics Height: 175.3 cm (5' 9) Admit wt: 12/23: 261 lb IBW: 160 lb %IBW: 163% BMI: 38.5 UBW: 265 lb %UBW: 98% Wt Readings from Last 10 Encounters: 12/30/24 111.9 kg (246 lb 9.6 oz) 01/28/14 81.2 kg (179 lb) 10/05/13 80.6 kg (177 lb 9.6 oz) 09/03/13 78.9 kg (174 lb) 09/02/13 83.9 kg (185 lb) Malnutrition weight loss criteria: no significant weight changes OSCAR GleasonR Pager: [phone] Progression of Care Note Expected Discharge Date: TBD Assessment and Discharge Plan as of 12/30/2024 2:20 PM Per medical team, patient is not medically cleared for discharge. Device removed 12/29 per EP. Device was sent for cx. Awaiting results and ID clearance for timing of new device implant. SW to continue to follow. GIOVANY Georges Director Of [employer] H6 Heart Failure 2/Advanced Heart Failure Progress Note Provider: Romelia Coleman APRN-SHIPPING AND RECEIVING WEIGHER IDENTIFYING INFORMATION PATIENT: Michelle Jules, 1965, [id number] LOS: 7 Code Status: Full Code Daily Plan: Plan of Care for Today: - Device removed 12/29 per EP. Continue to watch for bleeding/hematoma. Oxycodone prn for site pain. - Device was sent for cx. Awaiting results and ID clearance for timing of new device implant. - New blood cx sent today per ID rec. - Continuing daptomycin 8mg/kg every 24 hours per ID rec. - Okay to resume Entresto - Continue to hold anticoagulation (24-48 hours) Subjective/Interval Note Overnight Issues: Tenderness to prior device site with bruising and swelling, no signs of hematoma I/O: UO 1000 ml, Net +461 ml/24 hr, Net IO Since Admission: -9,885.95 mL [12/30/24 1352] no output recorded for most of day while pt was off floor having procedure Daily Weight: Admission weight: 118.7 kg Current weight: Weight: 111.9 kg (246 lb 9.6 oz) (standing wt) Diet: DIET HEART HEALTHY - 4 GM SODIUM Fluid Restriction 2000mL (1000mL Nursing, 1000mL Nutrition); Carb Controlled Telemetry personally reviewed: SR, ventricular paced DVT Prophylaxis: Lovenox Activity: Cardiac rehab and Occupational Therapy Fall Risk: Assessed for patient fall risk and discussed safety measures during rounding. Hospital Course: Michelle Jules is a 59 y.o. female with a PMH significant for ICM/HFrEF, s/p ICD, HTN, HLD, Type II DM with chronic neuropathy, obesity, gout, RLS, allergic rhinitis and recent MRSA bacteremia on vacomycin who presented to the [facility] ED on 12/20/24 with c/o recurrent fevers, N/V and lumbar back pain. Tm 102.1. She had been receiving vancomycin via PICC line (EOT 01/02) but the last couple days she was having trouble with the line and did not receive some doses of her antibiotic. ID was consulted there and blood cultures from 12/20 revealed MRSA. Her vancomycin was continued. She was transferred for consideration of device lead extraction. Primary Diagnosis: MRSA bacteremia (with sepsis 11/2024) Pt originally diagnosed with MRSA bacteremia at an [facility] and started on IV vanco and DC with PICC with EOT planned for 01/02/2025. She represented to [facility] with fever, N/V and had missed some of her doses of Vanco 2/2 issues with her PICC line. She had a KANDY at the [facility] which she reports at negative during her original admission. When she presented again, they repeated blood cultures which again came back positive for MRSA. She was then transferred to [facility] to evaluate need for device extraction. She also had concerns of back pain with her new presentation and will undergo imagining of her spine to rule out infectious source. ID following, appreciate assistance BC x 2 from 12/20 positive for MRSA at [facility] BC from 12/24 NGTD Device and leads removed 12/29 and sent for culture New BC x 2 sent 12/30 per ID rec. Vancomycin stopped 12/24. Started Daptomycin 8mg/kg every 24 hours per ID recs. Plan per ID: KANDY with possible lead veg, possible but less likely MV veg, thickened AV. 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 EP planning on device removal. Repeat blood cultures after removal - can replace when negative at 72 hrs. (Ordered 12/30) Cont Dapto Follow CT spine Lab Results Component Value Date WBC 8.21 12/30/2024 WBC 7.71 12/29/2024 Lumbar spine pain-improved Has chronic lumbar pain 2/2 arthritis Pain was worse on admission CT showed severe degenerative disease - 12/[address] cervical and thoracic spinal column - no evidence of acute infection - Did not complete lumbar portion of exam - clinically correlate need to image further, CT image completed through L2 Chronic systolic heart failure (HFrEF) / non-ischemic cardiomyopathy NYHA class II, ACC/AHA C EF 60-65%, LVIDD: 5.7 on TTE 12/24 Lab Results Component Value Date NTERMINALPRO 395 (H) 12/23/2024 Diuresis: none Beta blockade: Continue coreg 25 mg bid ACEi / ARB / ARNI: Continue entresto 24/26 mg Q 12 hours--okay to resume this evening MRA: Continue aldactone 25 mg daily SGLT2i: none Vasodilator: Inotrope: ICD / RESISTOR INSPECTOR: RESISTOR INSPECTOR-D removed on 12/29, okay to reimplant if blood cultures negative 72 hours per ID Heart Healthy diet with 4 gram Na, 2L fluid restriction Weigh daily Strict I/O Hypertensive Heart Disease - medications as above BP Readings from Last 3 Encounters: 12/30/24 139/65 01/28/14 100/57 10/05/13 118/74 Hyperlipidemia - Continue Atorvastatin 10 mg Lab Results Component Value Date CHOLESTEROL 124 12/23/2024 TRIG 138 12/23/2024 HDL 26 (L) 12/23/2024 LDLCALC 70 12/23/2024 Electrolyte Monitoring - Maintain K > 4, Mg > 2 - Replete PRN - Na Lab Results Component Value Date SODIUM 129 (L) 12/30/2024 SODIUM 137 12/29/2024 SODIUM 136 12/28/2024 - K+ Lab Results Component Value Date POTASSIUM 4.3 12/30/2024 POTASSIUM 4.1 12/29/2024 POTASSIUM 4.1 12/28/2024 - Cl Lab Results Component Value Date CHLORIDE 96 (L) 12/30/2024 CHLORIDE 101 12/29/2024 CHLORIDE 99 12/28/2024 - Mg Lab Results Component Value Date MAGNESIUM 1.8 12/30/2024 MAGNESIUM 2.2 12/29/2024 MAGNESIUM 2.0 12/28/2024 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 - drop in Hgb likely 2/2 to device removal, will continue to monitor Lab Results Component Value Date HGB 10.8 (L) 12/30/2024 HGB 12.7 12/29/2024 HGB 12.0 12/28/2024 Lab Results Component Value Date IRON 65 12/23/2024 FERRITIN 63.6 12/23/2024 Lab Results Component Value Date TRANSFERRIN 268 12/23/2024 Lab Results Component Value Date TIBC 335 12/23/2024 Lab Results Component Value Date IRONSATURAT 19 (L) 12/23/2024 Obesity (Body mass index is 36.42 kg/m .; Class I= 30-34.9, Class II= 35-39.9, Class III= > 40; <19 -consider cardiac cachexia) Patient given education regarding Lifestyle Modification Secondary to Excess Caloric intake and decreased Caloric Expenditure Diabetes Mellitus Type 2 - On home glargine 40 units bid plus sliding scale with weekly trulicity - Insulin Lispro 4 unts daily AC and HS with SS - Endo consulted, appreciate assistance - Recs from Endo: Basal/Mealtime - Basal: U100 Glargine PENS with needles, dose 40 units every 12 hours. (Or insurance covered equivalent.) No Titration. - Mealtime time insulin: FixedvsFlexible: Fixed: U100 Lispro Pens with Pen Lackey MAX DAILY DOSE 150 units 30 Units for Large Meal or 15 Units for Small Meal PLUS Correction Scale Subcutaneous every meal and at bedtime Correction Scale: (Copy and paste into Note to Pharmacy) Custom: 150-200 = 3 unit 201-250 = 6 units 251-300 = 9 units 301-350 = 12 units 351-400 = 15 units Recent Labs 12/29/24 1513 12/29/24 1549 12/29/24 2019 12/30/24 0422 12/30/24 0649 12/30/24 1106 GLUCOSE 204* 207* 262* 321* 355* 241* Lab Results Component Value Date HGBA1C 10.8 (H) 12/23/2024 Complexity. Hyponatremia - Secondary to fluid shifts. Monitor. Obesity, Class II Body mass index is 36.42 kg/m . - Follow with PCP for dietary and lifestyle modifications. Wound Documentation Pacemaker/Defibrillator Site 12/29/24 1400 (Active) Placement Date/Time: 12/29/24 1400 Location: left upper chest Wound Surgical Sheath Site 12/29/24 1416 Right Femoral (Active) Date First Assessed/Time First Assessed: 12/29/24 1416 Primary Wound Type: Surgical Secondary Wound Type - Surgical: Sheath Site Present on Original Admission: No Wound Location Orientation: Right Location: Femoral Objective: Temp: [97.9 F (36.6 C)-99.9 F (37.7 C)] 99.7 F (37.6 C) Pulse (Heart Rate): [76-98] 89 Resp Rate: [10-21] 14 BP: (102-159)/(59-83) 139/65 Arterial Line (1) BP: (133-145)/(68-71) 137/70 O2 Sat (%): [85 %-100 %] 85 % Weight: [111.9 kg (246 lb 9.6 oz)] 111.9 kg (246 lb 9.6 oz) Body mass index is 36.42 kg/m . Physical Exam Constitutional: No distress. Eyes: Pupils are equal, round, and reactive to light. Neck: No JVD present. Cardiovascular: Normal rate, regular rhythm, normal heart sounds and normal pulses. Pulmonary/Chest: Effort normal and breath sounds normal. Surgical site tenderness left upper chest. Area soft, very tender to palpation. Noted echymosis left anterior axillary area. Abdominal: Soft. Bowel sounds are normal. Musculoskeletal: General: Edema present. Neurological: She is alert and oriented to person, place, and time. Skin: Skin is warm and dry. Patient Lines/Drains/Airways Status Active Lines, Drains, Airways, & Wound Overview Name Placement date Placement time Site Days Peripheral IV Line - Single Lumen 12/23/24 2350 pink median cubital vein (antecubital fossa), right 20 gauge 12/23/24 2350 -- 6 Peripheral IV Line - Single Lumen 12/26/24 1527 blue cephalic vein (lateral side of arm), left 22 gauge 12/26/24 1527 -- 3 Peripheral IV Line - Single Lumen 12/29/24 0924 forearm, anterior, left 18 gauge;1 1/4 in length 12/29/24 0924 -- 1 Arterial Line 12/29/24 1159 radial artery, left 12/29/24 1159 -- 1 Pacemaker/Defibrillator Site 12/29/24 1400 12/29/24 1400 -- less than 1 Wound Surgical Sheath Site 12/29/24 1416 Right Femoral 12/29/24 1416 Femoral less than 1 Data Review: ECHOCARDIOGRAM 01/28/2014 Transthoracic Echocardiogram: Conclusions 1. Normal left ventricular size with mod-severely reduced systolic function, LVEF 25-30%. 2. Normal right ventricular size with mild-mod reduced systolic function. 3. Wire in RA/RV. 4. No significant valvular heart disease. 5. Compared to the study from 07/2013 there has been mild improvement in systolic function. ECHOCARDIOGRAM 12/25/2024 KANDY: Interpretation Summary Technically challenging study, sub-optimal image quality, even with the use of contrast. Left Ventricle: Chamber size is normal. Normal wall thickness. Normal global systolic function. Regional wall motion is normal regional wall motion not well visualized. Ejection fraction is normal (60 - 65%). Diastolic function is normal. Right Ventricle: Right ventricle not well visualized. Chamber size is mildly enlarged. Systolic function is normal. Device wire is present. Valves not well visualized overall, but no overt vegetations noted on limited assessment. No hemodynamically significant valvular disease. No echo/Doppler evidence for pulmonary hypertension. Estimated right ventricular systolic pressure is 29 mmHg. Small pericardial effusion adjacent to the right ventricle without evidence of tamponade. Left Heart Measurements LV - Systole LVIDD 5.7 cm IVS 0.91 cm LVIDS 5 cm PW 0.86 cm LV RWT 0.3 LV Mass Index 83.3 g/m2 LV EDV BP 124 mL LV ESV BP 46 mL BP EF 63 % LV stroke volume BP (ml) 78 mL LV stroke volume index BP 33.62 mL/m2 LV - Diastole MV pk E sirena 1 m/s MV pk A sirena 0.8 m/s E/A ratio 1.25 e' septal pk sirena 0.06 m/s e' lateral pk sirena 0.09 m/s Avg e' pk sirena 0.08 m/s E/e' septal ratio 16.67 E/e' lateral ratio 11.11 Avg E/e' ratio 13.89 LV - HCM AV LVOT peak gradient 3 mmHg Left Atrium LA ESV SP 4CH (MOD) 52 mL LA ESV SP 2CH (MOD) 44 mL LA ESV BP (MOD) index 21 mL/m2 Right Heart Measurements RV - 2D RV basal diam 4.4 cm RV mid diam 4.1 cm RV long diam 7.6 cm RV - Doppler RV S' 2.1 cm/s Right Atrium RA vol index 4CH (MOD) 27.16 mL/m2 EST RAP 8 mmHg RA area 4CH (MOD) [address] Chest w/o Contrast IMPRESSION: 1. No suspicious consolidative or nodular opacity in the lungs. 2. Extensive multivessel coronary artery calcifications. carveDILOL 25 mg Oral Q12H DAPTOmycin 8 mg/kg (Adjusted) Intravenous Q24H [Held by provider] enoxaparin 40 mg Subcutaneous Daily Gabapentin 300 mg Oral Daily insulin glargine 50 Units Subcutaneous Q12HNS [START ON 12/31/2024] Insulin lispro 0-6 Units Subcutaneous Q24H Insulin lispro Subcutaneous 4x daily w/meals, HS Loratadine 10 mg Oral Daily magnesium oxide 400 mg Oral BID nystatin 1 Application Topical BID Pantoprazole 40 mg Oral Daily rOPINIRole 0.5 mg Oral QHS [Held by provider] sacubitril-valsartan 1 tablet Oral Q12H Spironolactone 25 mg Oral Daily Discussed with team on rounds. This plan will be discussed with EDDIE Maza, the attending needle control cheniller. DISCHARGE PLANNING: Dispo/Debility -Home with services Follow Up Appointments: No Follow Up needed in Heart Failure Clinic Please Ensure Follow Up Labs / Testing are scheduled: TRESA Coleman APRN-[facility] HF2/Advanced Heart Failure Phone: [phone] I saw and independently examined this patient today. I discussed my findings and the therapeutic plan with the student. Please see this note with my own ROS and physical exam and edits to note where needed. I have seen and evaluated the patient independent of resident or powder compounder, physician-assistant boiler operator or nurse practitioner on 12/30/2024 . I reviewed the history, examination above. I participated in the treatment plan outlined above. I provided a substantive portion of the care for this patient. I personally performed all aspects of the medical decision making for this encounter. I have reviewed and verified this documentation, and it accurately reflects our care. 59 yo female hx of cardiomyopathy, ASCVD, HFimpEF (last LVEF in 2022 was NL at [facility]), and RESISTOR INSPECTOR-D. She was recently evaluated at [facility] ED for recurrent fevers, N/V, low back pain, Temp as high as 102. Blood Cx from 12/20 pos for MRSA. She is referred to [facility] for evaluation and concern for device infection. S/p ICD extraction. Plan Await blood cultures, if negative RESISTOR INSPECTOR Sincerely, Angelia Paiz MD, AMARJIT, FACC, FACP, FRCP ([facility]) Professor of Internal Medicine [employer] [place], [place] Cosigned by EDDIE Silvestre at 12/30/2024 4:33 PM EDT Heart Failure 2/Advanced Heart Failure Progress Note Provider: CHAPITO Callejas IDENTIFYING INFORMATION PATIENT: Michelle Jules, 1965, [id number] LOS: 7 Code Status: Full Code Daily Plan: Plan of Care for Today: - Device removed 12/29 per EP. Continue to watch for bleeding/hematoma. Oxycodone prn for site pain. - Device was sent for cx. Awaiting results and ID clearance for timing of new device implant. - New blood cx sent today per ID rec. - Continuing daptomycin 8mg/kg every 24 hours per ID rec. Subjective/Interval Note Overnight Issues: No overnight events. I/O: UO 1000 ml, Net +461 ml/24 hr, Net IO Since Admission: -10,185.95 mL [12/30/24 1142] Daily Weight: Admission weight: 118.7 kg Current weight: Weight: 111.9 kg (246 lb 9.6 oz) (standing wt) Diet: DIET HEART HEALTHY - 4 GM SODIUM Fluid Restriction 2000mL (1000mL Nursing, 1000mL Nutrition); Carb Controlled Telemetry personally reviewed: SR, ventricular paced DVT Prophylaxis: Lovenox Activity: Cardiac rehab and Occupational Therapy Fall Risk: Assessed for patient fall risk and discussed safety measures during rounding. Hospital Course: Michelle Jules is a 59 y.o. female with a PMH significant for ICM/HFrEF, s/p ICD, HTN, HLD, Type II DM with chronic neuropathy, obesity, gout, RLS, allergic rhinitis and recent MRSA bacteremia on vacomycin who presented to the [facility] ED on 12/20/24 with c/o recurrent fevers, N/V and lumbar back pain. Tm 102.1. She had been receiving vancomycin via PICC line (EOT 01/02) but the last couple days she was having trouble with the line and did not receive some doses of her antibiotic. ID was consulted there and blood cultures from 12/20 revealed MRSA. Her vancomycin was continued. She was transferred for consideration of device lead extraction. 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 Concern for line infection vs pacer related endocarditis vs lumbar infection KANDY ordered. Results below. ID was consulted BC x 2 from 12/20 positive for MRSA at [facility] BC from 12/24 NGTD New BC x 2 sent 12/30 per ID rec. Vancomycin stopped 12/24. Started Daptomycin 8mg/kg every 24 hours per ID recs. Plan per ID: KANDY with possible lead veg, possible but less likely MV veg, thickened AV. 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 EP planning on device removal. Repeat blood cultures after removal - can replace when negative at [address] spine Lab Results Component Value Date WBC 8.21 12/30/2024 WBC 7.71 12/29/2024 Lumbar spine pain-improved Has chronic lumbar pain 2/2 arthritis Pain was worse on admission CT showed severe degenerative disease - 12/[address] cervical and thoracic spinal column - no evidence of acute infection - Did not complete lumbar portion of exam - clinically correlate need to image further, CT image completed through L2 ICD is not MRI compatible Chronic systolic heart failure (HFrEF) / non-ischemic cardiomyopathy NYHA class II, ACC/AHA C EF , LVIDD: Lab Results Component Value Date NTERMINALPRO 395 (H) 12/23/2024 Diuresis: none Beta blockade: Continue coreg 25 mg bid ACEi / ARB / ARNI: Continue entresto 24/26 mg bid MRA: Continue aldactone 25 mg daily SGLT2i: none Vasodilator: Inotrope: ICD / RESISTOR INSPECTOR: RESISTOR INSPECTOR-D Heart Healthy diet with 4 gram Na, 2L fluid restriction Weigh daily Strict I/O Hypertensive Heart Disease - medications as above BP Readings from Last 3 Encounters: 12/30/24 139/65 01/28/14 100/57 10/05/13 118/74 Hyperlipidemia - Continue Atorvastatin 10 mg Lab Results Component Value Date CHOLESTEROL 124 12/23/2024 TRIG 138 12/23/2024 HDL 26 (L) 12/23/2024 LDLCALC 70 12/23/2024 Electrolyte Monitoring - Maintain K > 4, Mg > 2 - Replete PRN - Na Lab Results Component Value Date SODIUM 129 (L) 12/30/2024 SODIUM 137 12/29/2024 SODIUM 136 12/28/2024 - K+ Lab Results Component Value Date POTASSIUM 4.3 12/30/2024 POTASSIUM 4.1 12/29/2024 POTASSIUM 4.1 12/28/2024 - Cl Lab Results Component Value Date CHLORIDE 96 (L) 12/30/2024 CHLORIDE 101 12/29/2024 CHLORIDE 99 12/28/2024 - Mg Lab Results Component Value Date MAGNESIUM 1.8 12/30/2024 MAGNESIUM 2.2 12/29/2024 MAGNESIUM 2.0 12/28/2024 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 Lab Results Component Value Date HGB 10.8 (L) 12/30/2024 HGB 12.7 12/29/2024 HGB 12.0 12/28/2024 Lab Results Component Value Date IRON 65 12/23/2024 FERRITIN 63.6 12/23/2024 Lab Results Component Value Date TRANSFERRIN 268 12/23/2024 Lab Results Component Value Date TIBC 335 12/23/2024 Lab Results Component Value Date IRONSATURAT 19 (L) 12/23/2024 Obesity (Body mass index is 36.42 kg/m .; Class I= 30-34.9, Class II= 35-39.9, Class III= > 40; <19 -consider cardiac cachexia) Patient given education regarding Lifestyle Modification Secondary to Excess Caloric intake and decreased Caloric Expenditure Diabetes Mellitus Type 2 - On home glargine 40 units bid plus sliding scale with weekly trulicity - Insulin Lispro 4 unts daily AC and HS with SS - Recs from Endo: Basal/Mealtime - Basal: U100 Glargine PENS with needles, dose 40 units every 12 hours. (Or insurance covered equivalent.) No Titration. - Mealtime time insulin: FixedvsFlexible: Fixed: U100 Lispro Pens with Pen Lackey MAX DAILY DOSE 150 units 30 Units for Large Meal or 15 Units for Small Meal PLUS Correction Scale Subcutaneous every meal and at bedtime Correction Scale: (Copy and paste into Note to Pharmacy) Custom: 150-200 = 3 unit 201-250 = 6 units 251-300 = 9 units 301-350 = 12 units 351-400 = 15 units Recent Labs 12/29/24 1513 12/29/24 1549 12/29/24 2019 12/30/24 0422 12/30/24 0649 12/30/24 1106 GLUCOSE 204* 207* 262* 321* 355* 241* Lab Results Component Value Date HGBA1C 10.8 (H) 12/23/2024 Complexity. Hyponatremia - Secondary to fluid shifts. Monitor. Obesity, Class II Body mass index is 36.42 kg/m . - Follow with PCP for dietary and lifestyle modifications. Wound Documentation Pacemaker/Defibrillator Site 12/29/24 1400 (Active) Placement Date/Time: 12/29/24 1400 Location: left upper chest Wound Surgical Sheath Site 12/29/24 1416 Right Femoral (Active) Date First Assessed/Time First Assessed: 12/29/24 141 Primary Wound Type: Surgical Secondary Wound Type - Surgical: Sheath Site Present on Original Admission: No Wound Location Orientation: Right Location: Femoral Objective: Temp: [97.9 F (36.6 C)-99.9 F (37.7 C)] 99.7 F (37.6 C) Pulse (Heart Rate): [76-98] 89 Resp Rate: [10-21] 14 BP: (102-159)/(59-83) 139/65 Arterial Line (1) BP: (133-145)/(68-71) 137/70 O2 Sat (%): [85 %-100 %] 85 % Weight: [111.9 kg (246 lb 9.6 oz)] 111.9 kg (246 lb 9.6 oz) Body mass index is 36.42 kg/m . Physical Exam Constitutional: No distress. Eyes: Pupils are equal, round, and reactive to light. Neck: No JVD present. Cardiovascular: Normal rate, regular rhythm, normal heart sounds and normal pulses. Pulmonary/Chest: Effort normal and breath sounds normal. Surgical site tenderness left upper chest. Area soft, very tender to palpation. Noted echymosis left anterior axillary area. Abdominal: Soft. Bowel sounds are normal. Musculoskeletal: General: Edema present. Neurological: She is alert and oriented to person, place, and time. Skin: Skin is warm and dry. Patient Lines/Drains/Airways Status Active Lines, Drains, Airways, & Wound Overview Name Placement date Placement time Site Days Peripheral IV Line - Single Lumen 12/23/24 2350 pink median cubital vein (antecubital fossa), right 20 gauge 12/23/24 2350 -- 6 Peripheral IV Line - Single Lumen 12/26/24 1527 blue cephalic vein (lateral side of arm), left 22 gauge 12/26/24 1527 -- 3 Peripheral IV Line - Single Lumen 12/29/24 0924 forearm, anterior, left 18 gauge;1 / in length 12/29/24 0924 -- 1 Arterial Line 12/29/24 1159 radial artery, left 12/29/24 1159 -- less than 1 Pacemaker/Defibrillator Site 12/29/24 1400 12/29/24 1400 -- less than 1 Wound Surgical Sheath Site 12/29/24 1416 Right Femoral 12/29/24 1416 Femoral less than 1 Data Review: ECHOCARDIOGRAM 01/28/2014 Transthoracic Echocardiogram: Conclusions 1. Normal left ventricular size with mod-severely reduced systolic function, LVEF 25-30%. 2. Normal right ventricular size with mild-mod reduced systolic function. 3. Wire in RA/RV. 4. No significant valvular heart disease. 5. Compared to the study from 07/2013 there has been mild improvement in systolic function. ECHOCARDIOGRAM 12/25/2024 KANDY: Interpretation Summary Technically challenging study, sub-optimal image quality, even with the use of contrast. Left Ventricle: Chamber size is normal. Normal wall thickness. Normal global systolic function. Regional wall motion is normal regional wall motion not well visualized. Ejection fraction is normal (60 - 65%). Diastolic function is normal. Right Ventricle: Right ventricle not well visualized. Chamber size is mildly enlarged. Systolic function is normal. Device wire is present. Valves not well visualized overall, but no overt vegetations noted on limited assessment. No hemodynamically significant valvular disease. No echo/Doppler evidence for pulmonary hypertension. Estimated right ventricular systolic pressure is 29 mmHg. Small pericardial effusion adjacent to the right ventricle without evidence of tamponade. Left Heart Measurements LV - Systole LVIDD 5.7 cm IVS 0.91 cm LVIDS 5 cm PW 0.86 cm LV RWT 0.3 LV Mass Index 83.3 g/m2 LV EDV BP 124 mL LV ESV BP 46 mL BP EF 63 % LV stroke volume BP (ml) 78 mL LV stroke volume index BP 33.62 mL/m2 LV - Diastole MV pk E sirena 1 m/s MV pk A sirena 0.8 m/s E/A ratio 1.25 e' septal pk sirena 0.06 m/s e' lateral pk sirena 0.09 m/s Avg e' pk sirena 0.08 m/s E/e' septal ratio 16.67 E/e' lateral ratio 11.11 Avg E/e' ratio 13.89 LV - HCM AV LVOT peak gradient 3 mmHg Left Atrium LA ESV SP 4CH (MOD) 52 mL LA ESV SP 2CH (MOD) 44 mL LA ESV BP (MOD) index 21 mL/m2 Right Heart Measurements RV - 2D RV basal diam 4.4 cm RV mid diam 4.1 cm RV long diam 7.6 cm RV - Doppler RV S' 2.1 cm/s Right Atrium RA vol index 4CH (MOD) 27.16 mL/m2 EST RAP 8 mmHg RA area 4CH (MOD) [address] Chest w/o Contrast IMPRESSION: 1. No suspicious consolidative or nodular opacity in the lungs. 2. Extensive multivessel coronary artery calcifications. carveDILOL 25 mg Oral Q12H DAPTOmycin 8 mg/kg (Adjusted) Intravenous Q24H [Held by provider] enoxaparin 40 mg Subcutaneous Daily Gabapentin 300 mg Oral Daily insulin glargine 50 Units Subcutaneous Q12HNS [START ON 12/31/2024] Insulin lispro 0-6 Units Subcutaneous Q24H Insulin lispro Subcutaneous 4x daily w/meals, HS Loratadine 10 mg Oral Daily magnesium oxide 400 mg Oral BID nystatin 1 Application Topical BID Pantoprazole 40 mg Oral Daily rOPINIRole 0.5 mg Oral QHS [Held by provider] sacubitril-valsartan 1 tablet Oral Q12H Spironolactone 25 mg Oral Daily Discussed with team on rounds. This plan will be discussed with EDDIE Maza, the attending needle control cheniller. DISCHARGE PLANNING: Dispo/Debility -Home with services Follow Up Appointments: No Follow Up needed in Heart Failure Clinic Please Ensure Follow Up Labs / Testing are scheduled: TBD CHAPITO Callejas HF2/Advanced Heart Failure Phone: [phone] Cosigned by CHAPITO Branch at 12/30/2024 2:06 PM EDT Department of Pharmacy Admission Medication Reconciliation Note Patient: Michelle Jules Room/Bed: 6028/A I have reviewed the patient's home medication list with the following sources Dispense Report, Pharmacy (Name [facility] ), and Patient supplied prescription bottles. I have also reviewed this list with the pharmacist. I am recommending the following changes to the home medication list. These recommendations are considered preliminary until attestation of this note by a pharmacist. Added to Home Medications: Atorvastatin 10 MG tablet. Cetirizine 10 MG tablet. Dulaglutide (Trulicity) 3 MG/0.5ML Solution Auto-injector. Insulin Lispro (HumaLOG KwikPen) 200 UNIT/ML Solution Pen-injector injection Lantus SoloStar 100 UNIT/ML Solution Pen-injector injection. nystatin 054280 unit/gm Powder Pantoprazole [address] Deleted from Home Medications: albuterol 108 (90 BASE) MCG/ACT IN AERS; no longer taking. aspirin 81 MG PO TABS; taken off by machinery mover. diphenhydrAMINE (BENADRYL) 25 MG PO TABS; no longer taking. enalapril (VASOTEC) 2.5 MG PO TABS; not in the bubble pack. [facility] transferred to [facility] in Aug 2019 according to [facility]. furOSEmide 40 MG PO TABS; no longer taking. Linagliptin (TRADJENTA) 5 MG Tab; taken off by plaster die maker. metformin 500 MG PO TABS; not taking due to side effect (messes with heart rhythm). OMEPRAZOLE [address]; taking pantoprazole instead. simvastatin 10 MG Tab; not taking due to side effects (myalgia & itchiness). Edits to Home Medications: carveDILOL (COREG) 25 MG PO TABS; updated direction to take 1 tablet by mouth 2 times daily from 1 tablet 2 times daily. Gabapentin 300 MG capsule; changed direction to take 1 capsule by mouth once daily from take 1 capsule by mouth 3 times daily. magnesium oxide 400 MG PO TABS; updated direction to take 1 tablet by mouth 2 times daily from 1 tablet 2 times daily rOPINIRole 0.5 MG Tab; changed strength to 0.5mg from 1mg. Other Comments: The patient's allergies have been reviewed with Patient. Dulaglutide (Trulicity) 3 MG/0.5ML Solution Auto-injector; uses it on Wednesdays. Lantus SoloStar 100 UNIT/ML Solution Pen-injector injection; patient taking differently; Inject 36 Units under the skin 2 times daily. Insulin Lispro (HumaLOG KwikPen) 200 UNIT/ML Solution Pen-injector injection; patient taking differently; Inject 33 Units under the skin 3 times daily. nystatin [id number] unit/gm Powder; uses it under her belly to prevent soreness. Neither [employer] or [facility] confirmed her picking it up. The following medications were in a bubble pack from [facility] with printed drug name and strength. Atorvastatin 10 MG tablet carveDILOL (COREG) 25 MG PO TABS Cetirizine 10 MG tablet Duloxetine 60mg cap Gabapentin 300 MG capsule magnesium oxide 400 MG PO TABS Pantoprazole [address] rOPINIRole 0.5 MG Tab Sacubitril-valsartan 24-26mg tab Spironolactone 25mg Please feel free to contact me with any further questions. Name: Willis Trotter Student Preceptor: Marysol Valencia Rph Date/Time: 12/30/2024 11:38 AM Time Spent: 90 minutes Cosigned by Marysol Valencia RPh,PharmD at 12/30/2024 12:46 PM EDT Associated attestation - Marysol Valencia RPh,PharmD - 12/30/2024 12:46 PM EDT Department of Pharmacy Admission Medication Reconciliation Note Patient: Michelle Jules Room/Bed: 6028/A I have reviewed the home medication list with the Student. The home medication list status is: complete. All changes to the home medication list have been updated in [facility]. Updated [employer]IN[employer]EL[employer] Med List: Prior to Admission Medications Prescriptions Atorvastatin 10 MG tablet Sig: Take 1 tablet by mouth daily. Cetirizine 10 MG tablet Sig: Take 1 tablet by mouth daily. DULoxetine [address] Particles capsule DR Sig: Take 1 capsule by mouth 2 times daily. Dulaglutide (Trulicity) 3 MG/0.5ML Solution Auto-injector Sig: Inject 3 mg under the skin once a week. Gabapentin 300 MG capsule Sig: Take 1 capsule by mouth daily. Insulin Lispro (HumaLOG KwikPen) 200 UNIT/ML Solution Pen-injector injection Sig: Inject 50 Units under the skin 3 times daily. Patient taking differently: 33 units under the skin 3 times daily Lantus SoloStar 100 UNIT/ML Solution Pen-injector injection Sig: Inject 40 Units under the skin 2 times daily. Patient taking differently: 36 units under the skin 2 times daily Pantoprazole [address] tablet DR Sig: Take 1 tablet by mouth 2 times daily. carveDILOL (COREG) 25 MG PO TABS Sig: Take 1 tablet by mouth 2 times daily. magnesium oxide 400 MG PO TABS Sig: Take 1 tablet by mouth 2 times daily. nystatin 195813 unit/gm Powder Sig: Apply 1 Application topically every 12 hours as needed. rOPINIRole 0.5 MG tablet Sig: Take 1 tablet by mouth at bedtime. sacubitril-valsartan 24-26 MG tablet Sig: Take 1 tablet by mouth 2 times daily. spironolactone (ALDACTONE) 25 MG Tab Sig: take 1 Tab by mouth daily. Facility-Administered Medications: None Please feel free to contact me with any further questions. Name: Marysol Valencia RPh,PharmD Phone #: [phone] Date/Time: 12/30/2024 12:43 PM Attempted to complete Inpatient Cardiac Rehab consultation. Patient requests hold secondary to being extremely fatigued and sore today. She stated I'll walk tomorrow I promise! Our team will follow this patient s progress and re-attempt consultation as able when patient is appropriate. Mariah Ferreira, MS [phone]) IP Cardiopulmonary & Vascular Rehab [facility] Inpatient Diabetes Consults - Progress Note- For provider needle control cheniller: QGENDA : TEAM 2 Assessment Uncontrolled type 2 diabetes with microvascular complications of neuropathy Admitted with MRSA and ICD infection A1c: 10.8% Risk: .None Plan Hospital Plan: Increase basal and add 3 am glucose check. If glucose > 250 X3, start IV insulin Basal: Insulin glargine: 46->50 units q12 hour Prandial: Insulin lispro: 1 unit per 2 gram carbs qachs & prn Correction: Insulin lispro: 3 unit(s) per every 25 mg/dL above 150 mg/dL qachs, 2:50> 200 at 3am Education: discussed plan Fall Risk: Assessed for patient fall risk and discussed safety measures during rounding. We will review glucoses; however, primary team should continue to check blood glucoses daily and reach out to our service with urgent issues DIABETES DISCHARGE PLAN Please contact our team on day of discharge for definitive recs. QGENDA :TEAM 2 Tentative discharge plan: (Please use the Diabetes Discharge Order Set: Diabetes Orders - for those patients discharged on INSULIN) - If orals or non-insulin injectables recommended, will need to order them outside of the Diabetes Orderset. -Resume Trulicity SGLT2i: could consider as eGFR is adequate Discharge Diet: DIET CARB CONTROLLED- 60 Grams per Meal Patient Education: Your target blood sugar is 80-130 mg/dl fasting and under 180 mg/dl nonfasting. Patient needs new insulin scripts at discharge: ASK PATIENT. Basal/Mealtime - Basal: U100 Glargine PENS with needles, dose 40 units every 12 hours. (Or insurance covered equivalent.) No Titration. - Mealtime time insulin: FixedvsFlexible: Fixed: U100 Lispro Pens with Pen Lackey MAX DAILY DOSE 150 units 30 Units for Large Meal or 15 Units for Small Meal PLUS Correction Scale Subcutaneous every meal and at bedtime Correction Scale: (Copy and paste into Note to Pharmacy) Custom: 150-200 = 3 unit 201-250 = 6 units 251-300 = 9 units 301-350 = 12 units 351-400 = 15 units Diabetes Supplies: Does not need new scripts for supplies. The patient will need script for new glucometer: no: Patient prefers any brand or substitute brand covered by insurance Continuous Glucose Monitoring Devices: Continue home CGM (does not need new script) Other Diabetes Supplies: Glucagon (Baqsimi Two Pack) 3 MG/DOSE Powder Follow up needed: Does not need [facility] Endocrinology appt PCP within 1- 2 weeks She would benefit from DM Education but would want to do it locally as she lives about 2 [place] here. CC: Hyperglycemia History of Present Illness: Michelle Jules is a 59 y.o. year old female who is seen at the bedside, having labs drawn. Chart reviewed including blood glucose flowsheet. Cr 0.86. Patient is eating well, no nausea. Despite aggressive changes yesterday, patient remains elevated. Current Diet Orders Procedures DIET HEART HEALTHY - 4 GM SODIUM Fluid Restriction 2000mL (1000mL Nursing, 1000mL Nutrition); Carb Controlled Strict carb coverage, please. Please document in flowsheet all carbs consumed from meal trays (even if the number is zero) and record snack carbs consumed to better assist with determining glycemic management. Thank you. Standing Status: Standing Number of Occurrences: 1 Additional Modifier:: Fluid Restriction 2000mL (1000mL Nursing, 1000mL Nutrition) Additional Modifier:: Carb Controlled Current Regimen: Basal: Glargine 46 units Q12 Prandial: Insulin lispro 1 unit for every 2 grams of carbohydrates Correction: Insulin Lispro 3 units for every 25 mg/dl greater than 150mg/dl achs Daily Glucose Review: Date Daily glucose review TDD Basal Prandial/ Correction 12/28/2024 223/260, 340, 337, 258, 201 120 80 40 12/29/2024 249, 179 122 86 36 12/30/24 Review of Systems Diabetes: Negative for symptoms of hypoglycemia Respiratory: Negative for shortness of breath Gastrointestinal: Negative for abdominal pain or nausea All other systems negative. Physical Exam Constitutional: Well-developed, well-nourished, obese female in no acute distress. Pulmonary/Chest: Respirations even and unlabored. Musculoskeletal: No acute abnormalities noted Neurological: Alert and interactive Psych: Cooperative Temp: [97.9 F (36.6 C)-99.9 F (37.7 C)] 99.7 F (37.6 C) Pulse (Heart Rate): [76-98] 89 Resp Rate: [10-21] 14 BP: (102-159)/(59-83) 139/65 Arterial Line (1) BP: (133-145)/(68-71) 137/70 O2 Sat (%): [85 %-100 %] 85 % Weight: [111.9 kg (246 lb 9.6 oz)] 111.9 kg (246 lb 9.6 oz)Admission (Dosing) Weight: 118.7 kg (261 lb 11.2 oz) Most recent entered Weight: 111.9 kg (246 lb 9.6 oz) (standing wt) Body mass index is 36.42 kg/m . Background History Michelle Jules is a 59 y.o. 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 BG range since arrival has been 130-359, then 340 this morning. She is eating without problems. Diet is heart healthy without carb control and no carb counts have been documented.she has been receiving corrective doses of insulin lispro that have not been able to prevent the hyperglycemia. Diabetes History: Type of Diabetes: Type 2 Diabetes Mellitus (T2DM) Diagnosis (aprox date): 2002 Family History: T2DM: mother grandparent(s) Outpatient Clinic: PCP Prior regiments: issues with past DM medications: Metformin - affected patient's heart rhythm Steglatro - concern for BRIANA, Scr increased after starting Home regimen: Basal: insulin glargine 36 units q12 hour Prandial: insulin lispro unknown ICR. Typical dose is 33 units per meal Correction: insulin lispro unknown correction dosing Noninsulin injectables: Trulicity 3mg every sat Orals: glyburide (last filled September 2024 for 30 day supply) BP: carvedilol, lasix, and Entresto Heart Failure: no SGLT2i therapy Lipids: atorvastatin Diabetes Complications: peripheral neuropathy, cardiovascular disease, heart failure, and MASLD Date of most recent dilated eye exam: 2023 Tobacco/Nicotine: She reports that she has never smoked. She does not have any smokeless tobacco history on file. DKA occurrences: none History of Pancreatitis: no History of GMI or UTI: None Home blood glucoses: glucose meter: One Touch Verio and Freestyle Libre3+ using reader (not phone) Hypoglycemia: daily to weekly Recent A1c: Lab Results Component Value Date HGBA1C 10.8 (H) 12/23/2024 Lab Results Component Value Date CHOLESTEROL 124 12/23/2024 TRIG 138 12/23/2024 HDL 26 (L) 12/23/2024 LDLCALC 70 12/23/2024 Lab Results Component Value Date SODIUM 129 (L) 12/30/2024 POTASSIUM 4.3 12/30/2024 CHLORIDE 96 (L) 12/30/2024 CO2 25 12/30/2024 BUN 10 12/30/2024 CREATSERUM 0.86 12/30/2024 GLUCOSE 241 (H) 12/30/2024 No results found for: CREATURINE, MICROALBUMIN, MICALBCREAT Lab Results Component Value Date ALT 14 12/23/2024 No results found for: PREALBUMIN Cardiac echo: EF = Results for orders placed during the hospital encounter of 12/23/24 ECHOCARDIOGRAM TRANSESOPHAGEAL (KANDY) 12/25/2024 (Final) Interpretation Summary KANDY for evaluation of MRSA bacteremia. Possible small filamentous echodensity associated with either the coronary sinus or RV lead, not well seen There is nonspecific thickening of the aortic valve with fibrinous stranding Minimal amount of filamentous stranding present on the atrial side of the mitral valve, more consistent with age related degenerative changes, less likely to represent infection. Left ventricular systolic function is mildly reduced, estimated LVEF ~45-50%. Right ventricular size and systolic function are normal. No thrombus in the left atrium, left atrial appendage, or right atrium. Mild MR. Mild TR. RVSP of 28 mmHg plus right atrial pressure No evidence of interatrial shunt by color Doppler and negative bubble contrast study. Grade 2 aortic atherosclerosis noted in the descending aorta. Trivial to small pericardial effusion. Summary: HCPOA Care Management Progress Note Met with Patient to review health care power of absorption and adsorption engineer (HCPOA) information booklet. Questions Answered: Yes Patient stated she is going to take the advanced directives booklet home and fill out the HCPOA document with her son and have it witnessed by a notary. Patient stated she would prefer to discuss document with son when she completes it. Patient also stated son is legal next of kin (LNOK) and he is okay with making decisions if he every has to, but wants to work with him to complete the documentation. Care Management Doweler (CME) advised patient to let care team know if she changes her mind to fill it out while admitted and CME will come back to help complete. Lilli Eugene Care Management Doweler ID Team 3 (SOT) Follow-up Note: Reason for follow up: Seeing patient for MRSA bacteremia Identifying information Name: Michelle Jules Date of : 1965 LOS: 7 Subjective The patient was seen and examined at bedside. No significant events overnight. Underwent device extraction yesterday She has pain at site of surgery this morning ROS All systems reviewed and negative unless stated above Antimicrobials Daptomycin 12/24-current Current medications As reviewed in the electronic medical record and confirmed from history and/or chart review. Physical Exam Temp: [97.9 F (36.6 C)-99.9 F (37.7 C)] 99.9 F (37.7 C) Pulse (Heart Rate): [74-98] 96 Resp Rate: [10-21] 16 BP: (115-159)/(59-83) 119/59 Arterial Line (1) BP: (133-145)/(68-71) 137/70 O2 Sat (%): [92 %-100 %] 92 % Weight: [111.9 kg (246 lb 9.6 oz)] 111.9 kg (246 lb 9.6 oz) Physical Exam GEN: Awake EYES: no scleral icterus HENT: MMM. NECK: Supple CARDIO: RRR, no murmur. PULM/CHEST: CTAB. No increased work of breathing. Dressing covering site of device extraction ABD: Normal bowel sounds, soft, not tender or distended. SKIN: No rashes. NEURO: AOx3. No focal deficits. Psych: normal affect Labs Lab Results Component Value Date WBC 8.21 12/30/2024 HGB 10.8 (L) 12/30/2024 HCT 32.9 (L) 12/30/2024 PLATELET 170 12/30/2024 MCV 88.4 12/30/2024 Lab Results Component Value Date CREATSERUM 0.86 12/30/2024 Lab Results Component Value Date ALT 14 12/23/2024 AST 14 12/23/2024 ALKPHOS 108 12/23/2024 BILITOTAL 0.3 12/23/2024 BILIDIRECT <0.1 12/23/2024 No results found for: SEDRATE No results found for: CRP Microbiology Data (personally reviewed) Blood cultures: 12/20/24 (OSH): MRSA (S to tetracycline and TMP-SMX) 12/21/24 (OSH): MRSA 12/24/24 (OSH): NGTD Diagnostics and Imaging (personally reviewed) XR CHEST 1 VIEW PORTABLE, 12/23/2024 -Left subclavian 3-lead ICD with lead tips in the right atrium, right ventricle -Stable exam with clear lungs. KANDY, 12/25/24 -Possible small filamentous echodensity associated with either the coronary sinus or RV lead. There is nonspecific thickening of the aortic valve with fibrinous stranding Impression Michelle Jules is a 59 y.o. female with a PMH of ICM/HFrEF, s/p ICD, and recent MRSA bacteremia on vacomycin who presented on 12/23/2024 as a transfer from OSH for the management of MRSA bacteremia. Relapsed MRSA bacteremia - likely in the setting of an infected ICD s/p extraction 12/29 and cultures sent Back pain - pending CT scan to rule out OM or epidural abscesses ICM/HFrEF s/p ICD High-risk medication use - Daptomycin is a high risk medication that requires monitoring of CK at baseline and weekly due to risk of rhabdomyolysis. Estimated Creatinine Clearance: 95 mL/min (by C-G formula based on SCr of 0.86 mg/dL). Recommendations Diagnostics: Repeat blood cultures Monitor CK weekly while on daptomycin Therapeutics: Can re-implant if repeat blood cultures are negative for 72 hours Continue IV daptomycin 8 mg/kg daily Isolation: standard ID Team 3 (SOT) Will continue to follow with you. If you have any questions, please reach out to the ID Team 3 (SOT) pager found in [facility]Genda below. The ID Team pagers are available - Saturday through Saturday from 7:00 am to 06:00 pm. For emergent or after hour issues, please call the on-call ID/1st call Fellow pager. [facility] - [facility] Infectious Disease - Angel Stein [facility] Infectious Disease Fellow Division of Infectious Diseases Cosigned by Abbey Cruz MD at 12/30/2024 5:06 PM EDT Associated attestation - Abbey Cruz MD - 12/30/2024 5:06 PM EDT ID ATTENDING NOTE: I agree with Dr. Stein's note below. I have edited the note to reflect my thoughts including the history, physical exam, and medical decisions. I have independently interviewed and examined the patient on 12/30/24, and I discussed the findings and therapeutic plan with the fellow, and we collaborated on medical decision making for this patient. Briefly, Mrs. Jules reports that she is overall doing ok today. She does report left upper chest pain at pacemaker removal site, but stable this morning. She denies any back pain today. She reports no fevers, chills, shortness of breath, cough, nausea, vomiting, abdominal pain, diarrhea, or skin rashes/lesions. Patient s/p device removal yesterday with cultures from the OR pending. On physical exam, patient is resting comfortably, well-appearing, and in no acute distress. EOMI and no scleral icterus. No oral lesions. Fair dentition. Neck is supple with no cervical lymphadenopathy. Heart with RRR and no murmurs. No pedal edema. Patient on room air when seen today. Lungs CTAB with no increased work of breathing, wheezing, or crackles. Abdomen soft, not tender, not distended. No skin rashes/lesions. Patient AOx3. No focal neuro deficits. Moves all 4 extremities. Mrs. Jules is a 59-year-old female with past medical history significant for NICM/HFrEF s/p ICD, hypertension, hyperlipidemia, T2DM with chronic neuropathy, obesity, gout, RLS, and recent MRSA bacteremia admitted secondary to transfer from [facility] secondary to fevers, nausea, vomiting, and back pain. 1. Recurrent MRSA bacteremia: Patient with negative blood cultures from 12/23/24. She is currently on IV Daptomycin, and would recommend to continue on this antibiotic therapy at this time. EP consulted, and patient s/p device removal yesterday with cultures pending. Would recommend blood cultures today and if negative for 72 hours, then can place new device. Recommend weekly CK while on IV Daptomycin. 2. Lumbar back pain: CT spine completed through L2, and no evidence of infection. Will assess back pain tomorrow to see if we need to consider MRI while no cardiac device is in place. 3. HFrEF and NICM 4. High risk medication use: Patient is currently on IV daptomycin, which requires monitoring of CK to reduce risk of toxicity. 5. Estimated Creatinine Clearance: 95 mL/min (by C-G formula based on SCr of 0.86 mg/dL). ID Team 3 (Transplant) will continue to follow with you. Please page with any questions or concerns. Abbey Cruz MD Student Admissions Clerk Division of Infectious Diseases Pager #[phone] Heart Failure 2/Advanced Heart Failure Progress Note Provider: Trina Mejia APRN-SHIPPING AND RECEIVING WEIGHER IDENTIFYING INFORMATION PATIENT: Michelle Jules, 1965, [id number] LOS: 6 Code Status: Full Code Daily Plan: Plan of Care for Today: - Device extraction completed with EP today, device and leads sent for culture - Plan for re-implantation of CIED after ID clearance - Hold anti-coagulation x 24-48 hrs - CT Chest - no suspicious consolidative or nodular opacity in the lungs, extensive multi-vessel coronary artery calcifications - CT cervical and thoracic spinal column - no evidence of acute infection - Did not complete lumbar portion of exam - clinically correlate need to image further, CT image completed through L2 - ID following with recs: - Continue daptomycin per ID recommendations (12/24 - ) - Endocrinology consulted 2/2 hyperglycemia - recs noted in progress note Subjective/Interval Note Overnight Issues: No acute OVN events I/O: UO 2440 mL, Net negative 1450 mL/24 hr, Net IO Since Admission: -10,146.95 mL [12/29/24 1449] Daily Weight: Admission weight: 118.7 kg (261#) Current weight: Weight: 112.3 kg (247 lb 8 oz) (standing wt) Diet: DIET HEART HEALTHY - 4 GM SODIUM Fluid Restriction 2000mL (1000mL Nursing, 1000mL Nutrition) Telemetry personally reviewed: V-paced DVT Prophylaxis: Lovenox Activity: Cardiac rehab and Occupational Therapy Fall Risk: Assessed for patient fall risk and discussed safety measures during rounding. Hospital Course: Michelle Jules is a 59 y.o. female with a PMH significant for ICM/HFrEF, s/p ICD, HTN, HLD, Type II DM with chronic neuropathy, obesity, gout, RLS, allergic rhinitis and recent MRSA bacteremia on vacomycin who presented to the [facility] ED on 12/20/24 with c/o recurrent fevers, N/V and lumbar back pain. Tm 102.1. She had been receiving vancomycin via PICC line (EOT 01/02) but the last couple days she was having trouble with the line and did not receive some doses of her antibiotic. ID was consulted there and blood cultures from 12/20 revealed MRSA. Her vancomycin was continued. She was transferred for consideration of device lead extraction. Primary Diagnosis: MRSA bacteremia with sepsis 11/2024 Pt originally diagnosed with MRSA bacteremia at an [facility] and started on IV vanco and DC with PICC with EOT planned for 01/02/2025. She represented to [facility] with fever, N/V and had missed some of her doses of Vanco 2/2 issues with her PICC line. She had a KANDY at the [facility] which she reports at negative during her original admission. When she presented again, they repeated blood cultures which again came back positive for MRSA. She was then transferred to [facility] to evaluate need for device extraction. She also had concerns of back pain with her new presentation and will undergo imagining of her spine to rule out infectious source. - ID consulted, appreciate assistance ID Recs: Diagnostics: KANDY for further evaluation: completed 12/25 MRI spines with and without contrast: Unable to complete 2/2 atrial lead not MRI compatible. CT C/T/L spine ordered. Can plan to do MRIs once device is removed if needed. CT C / T - no evidence of acute infection involving the cervical spine and thoracic spine. Imaging extended to L2. But did not get complete lumbar CT completed. Clinically correlate need for further imaging. Check CK level: 41 12/25 - plan to continue checking weekly while on daptomyocin Blood culture (12/24): NGTD / X 2 Therapeutics: Continue IV daptomycin 8 mg/kg daily Device removed 12/29 - awaiting cultures from device and plan for when to re-implant Antibiotics: Vanc started at OSH--Changed to Daptomycin Indications: MRSA bacteremia EOT originally 01/02 BC x 2 from 12/20 positive for MRSA at [facility] Blood culture here at [facility] 12/24 negative day 10/17 X 2 Vancomycin stopped 12/24. Started Daptomycin 8mg/kg every 24 hours per ID recs. KANDY completed. EP consulted: device removed 12/29 , sent for cultures, awaiting results for timing purposes for re-implantation, hold AC for 24-48 hrs post Cardiac surgery wanted CT Chest completed - no suspicious consolidative or nodular opacity in lungs, extensive multivessel coronary artery calcifications Lab Results Component Value Date WBC 7.71 12/29/2024 WBC 8.24 12/28/2024 Lumbar spine pain-improved Has chronic lumbar pain 2/2 arthritis Pain was worse on admission CT at [facility] showed severe degenerative disease - CT / C spine / T spine completed without concern for infection, image extended to L2 - clinically correlate need for further imaging Chronic systolic heart failure (HFrEF) / non-ischemic cardiomyopathy NYHA class II, ACC/AHA C EF 60-65%, LVIDD: 5.7 on TTE 12/24 Lab Results Component Value Date NTERMINALPRO 395 (H) 12/23/2024 Diuresis: none Beta blockade: Continue coreg 25 mg bid ACEi / ARB / ARNI: Continue entresto 24/26 mg bid --> holding for upcoming EP procedure MRA: Continue aldactone 25 mg daily SGLT2i: none Vasodilator: Inotrope: ICD / RESISTOR INSPECTOR: RESISTOR INSPECTOR-D removed 12/29 Heart Healthy diet with 4 gram Na, 2L fluid restriction Weigh daily Strict I/O Hypertensive Heart Disease - Medications as above BP Readings from Last 3 Encounters: 12/29/24 124/63 01/28/14 100/57 10/05/13 118/74 Hyperlipidemia - Continue Atorvastatin 10 mg Lab Results Component Value Date CHOLESTEROL 124 12/23/2024 TRIG 138 12/23/2024 HDL 26 (L) 12/23/2024 LDLCALC 70 12/23/2024 Electrolyte Monitoring - Maintain K > 4, Mg > 2 - Replete PRN - Na Lab Results Component Value Date SODIUM 137 12/29/2024 SODIUM 136 12/28/2024 SODIUM 137 12/27/2024 - K+ Lab Results Component Value Date POTASSIUM 4.1 12/29/2024 POTASSIUM 4.1 12/28/2024 POTASSIUM 4.2 12/27/2024 - Cl Lab Results Component Value Date CHLORIDE 101 12/29/2024 CHLORIDE 99 12/28/2024 CHLORIDE 103 12/27/2024 - Mg Lab Results Component Value Date MAGNESIUM 2.2 12/29/2024 MAGNESIUM 2.0 12/28/2024 MAGNESIUM 2.0 12/27/2024 Class II Obesity (Body mass index is 36.55 kg/m .; Class I= 30-34.9, Class II= 35-39.9, Class III= > 40; <19 -consider cardiac cachexia) Patient given education regarding Lifestyle Modification Secondary to Excess Caloric intake and decreased Caloric Expenditure Diabetes Mellitus Type 2 - On home glargine 40 units bid plus sliding scale with weekly trulicity - Insulin Lispro 4 unts daily AC and HS with SSI, increased to high - Consult to Endo for assistance with hypoglycemia Hospital Plan: Increase basal insulin for hyperglycemia seen while NPO Basal: Insulin glargine: 40-> 46 units q12 hour Prandial: Insulin lispro: 1 unit per 4->2 gram carbs qachs & prn Correction: Insulin lispro: 2 -> 3 unit(s) per every 25 mg/dL above 150 mg/dL qachs Recent Labs 12/28/24 1501 12/28/24 1850 12/28/24 2033 12/29/24 0515 12/29/24 0637 12/29/24 1254 GLUCOSE 337* 258* 201* 213* 249* 179 Lab Results Component Value Date HGBA1C 10.8 (H) 12/23/2024 Complexity. Obesity, Class II Body mass index is 36.55 kg/m . - Follow with PCP for dietary and lifestyle modifications. Wound Documentation Pacemaker/Defibrillator Site 12/29/24 1400 (Active) Placement Date/Time: 12/29/24 1400 Location: left upper chest Wound Surgical Sheath Site 12/29/24 1416 Right Femoral (Active) Date First Assessed/Time First Assessed: 12/29/24 1416 Primary Wound Type: Surgical Secondary Wound Type - Surgical: Sheath Site Present on Original Admission: No Wound Location Orientation: Right Location: Femoral Objective: Temp: [97.6 F (36.4 C)-99.7 F (37.6 C)] 99.7 F (37.6 C) Pulse (Heart Rate): [74-105] 86 Resp Rate: [10-22] 11 BP: (115-159)/(63-76) 124/63 Arterial Line (1) BP: (133-145)/(68-71) 137/70 O2 Sat (%): [93 %-100 %] 93 % Weight: [112.3 kg (247 lb 8 oz)] 112.3 kg (247 lb 8 oz) Body mass index is 36.55 kg/m . Physical Exam Constitutional: No distress. Neck: No JVD present. Cardiovascular: Normal rate, regular rhythm, S1 normal and S2 normal. Pulses: Radial pulses are 2+ on the right side and 2+ on the left side. Dorsalis pedis pulses are 1+ on the right side and 1+ on the left side. Left chest site - C/D/I Right groin site - C/D/I Pulmonary/Chest: Effort normal and breath sounds normal. Abdominal: Bowel sounds are normal. There is no abdominal tenderness. Large and round Musculoskeletal: General: No edema. Cervical back: Neck supple. Neurological: She is alert and oriented to person, place, and time. Skin: Skin is warm and dry. Patient Lines/Drains/Airways Status Active Lines, Drains, Airways, & Wound Overview Name Placement date Placement time Site Days Peripheral IV Line - Single Lumen 12/23/24 2350 pink median cubital vein (antecubital fossa), right 20 gauge 12/23/24 2350 -- 5 Peripheral IV Line - Single Lumen 12/26/24 1527 blue cephalic vein (lateral side of arm), left 22 gauge 12/26/24 1527 -- 2 Peripheral IV Line - Single Lumen 12/29/24 0924 forearm, anterior, left 18 gauge;1 1/4 in length 12/29/24 0924 -- less than 1 Arterial Line 12/29/24 1159 radial artery, left 12/29/24 1159 -- less than 1 Pacemaker/Defibrillator Site 12/29/24 1400 12/29/24 1400 -- less than 1 Wound Surgical Sheath Site 12/29/24 1416 Right Femoral 12/29/24 1416 Femoral less than 1 Data Review: Recent Labs 12/27/24 0420 12/28/24 0415 12/29/24 0515 WBC 6.48 8.24 7.71 HGB 11.8 12.0 12.7 HCT 37.0 37.1 39.2 PLATELET 188 179 190 SODIUM 137 136 137 POTASSIUM 4.2 4.1 4.1 CHLORIDE 103 99 101 CO2 27 28 22 BUN 9 10 9 CREATSERUM 0.91 0.73 0.86 Lab Results Component Value Date NTERMINALPRO 395 (H) 12/23/2024 Recent Labs 12/28/24 0415 INR 1.1 ECHOCARDIOGRAM 01/28/2014 Transthoracic Echocardiogram: Conclusions 1. Normal left ventricular size with mod-severely reduced systolic function, LVEF 25-30%. 2. Normal right ventricular size with mild-mod reduced systolic function. 3. Wire in RA/RV. 4. No significant valvular heart disease. 5. Compared to the study from 07/2013 there has been mild improvement in systolic function. ECHOCARDIOGRAM 12/25/2024 KANDY: Interpretation Summary Technically challenging study, sub-optimal image quality, even with the use of contrast. Left Ventricle: Chamber size is normal. Normal wall thickness. Normal global systolic function. Regional wall motion is normal regional wall motion not well visualized. Ejection fraction is normal (60 - 65%). Diastolic function is normal. Right Ventricle: Right ventricle not well visualized. Chamber size is mildly enlarged. Systolic function is normal. Device wire is present. Valves not well visualized overall, but no overt vegetations noted on limited assessment. No hemodynamically significant valvular disease. No echo/Doppler evidence for pulmonary hypertension. Estimated right ventricular systolic pressure is 29 mmHg. Small pericardial effusion adjacent to the right ventricle without evidence of tamponade. Left Heart Measurements LV - Systole LVIDD 5.7 cm IVS 0.91 cm LVIDS 5 cm PW 0.86 cm LV RWT 0.3 LV Mass Index 83.3 g/m2 LV EDV BP 124 mL LV ESV BP 46 mL BP EF 63 % LV stroke volume BP (ml) 78 mL LV stroke volume index BP 33.62 mL/m2 LV - Diastole MV pk E sirena 1 m/s MV pk A sirena 0.8 m/s E/A ratio 1.25 e' septal pk sirena 0.06 m/s e' lateral pk sirena 0.09 m/s Avg e' pk sirena 0.08 m/s E/e' septal ratio 16.67 E/e' lateral ratio 11.11 Avg E/e' ratio 13.89 LV - HCM AV LVOT peak gradient 3 mmHg Left Atrium LA ESV SP 4CH (MOD) 52 mL LA ESV SP 2CH (MOD) 44 mL LA ESV BP (MOD) index 21 mL/m2 Right Heart Measurements RV - 2D RV basal diam 4.4 cm RV mid diam 4.1 cm RV long diam 7.6 cm RV - Doppler RV S' 2.1 cm/s Right Atrium RA vol index 4CH (MOD) 27.16 mL/m2 EST RAP 8 mmHg RA area 4CH (MOD) 21 cm2 carveDILOL 25 mg Oral Q12H DAPTOmycin 8 mg/kg (Adjusted) Intravenous Q24H enoxaparin 40 mg Subcutaneous Daily Gabapentin 300 mg Oral Daily insulin glargine 46 Units Subcutaneous Q12H Insulin lispro Subcutaneous 4x daily w/meals, HS Loratadine 10 mg Oral Daily magnesium oxide 400 mg Oral BID nystatin 1 Application Topical BID Pantoprazole 40 mg Oral Daily rOPINIRole 0.5 mg Oral QHS [Held by provider] sacubitril-valsartan 1 tablet Oral Q12H Spironolactone 25 mg Oral Daily Discussed with team on rounds. This plan will be discussed with Dr. Jose Kraft DO, the attending needle control cheniller. DISCHARGE PLANNING: Dispo/Debility -Home with services Follow Up Appointments: No Follow Up needed in Heart Failure Clinic Please Ensure Follow Up Labs / Testing are scheduled: TBD CHAPITO Díaz HF2/Advanced Heart Failure Phone: [phone] Heart Failure 2/Advanced Heart Failure Progress Note Provider: CHAPITO Callejas IDENTIFYING INFORMATION PATIENT: Michelle Jules, 1965, [id number] LOS: 6 Code Status: Full Code Daily Plan: Plan of Care for Today: - Schedule device removal today per EP. Cardiac surgery consulted for backup 2/2 high lead application architect removal - Continuing daptomycin 8mg/kg every 24 hours per ID rec. - CTPV ordered. - Endo consulted to assist managing pt's continued hyperglycemia given current treatment regimen. -Resume diet after procedure. Subjective/Interval Note Overnight Issues: No overnight events. I/O: UO 2675 ml, Net -1380 ml/24 hr, Net IO Since Admission: -10,146.95 mL [12/29/24 1437] Daily Weight: Admission weight: 118.7 kg (261#) Current weight: Weight: 112.3 kg (247 lb 8 oz) (standing wt) Diet: DIET NPO with meds Telemetry personally reviewed: SR, ventricular paced DVT Prophylaxis: Lovenox Activity: Cardiac rehab and Occupational Therapy Fall Risk: Assessed for patient fall risk and discussed safety measures during rounding. Hospital Course: Michelle Jules is a 59 y.o. female with a PMH significant for ICM/HFrEF, s/p ICD, HTN, HLD, Type II DM with chronic neuropathy, obesity, gout, RLS, allergic rhinitis and recent MRSA bacteremia on vacomycin who presented to the [facility] ED on 12/20/24 with c/o recurrent fevers, N/V and lumbar back pain. Tm 102.1. She had been receiving vancomycin via PICC line (EOT 01/02) but the last couple days she was having trouble with the line and did not receive some doses of her antibiotic. ID was consulted there and blood cultures from 12/20 revealed MRSA. Her vancomycin was continued. She was transferred for consideration of device lead extraction. 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 Concern for line infection vs pacer related endocarditis vs lumbar infection KANDY ordered. Results below. ID was consulted BC x 2 from 12/20 positive for MRSA at [facility] BC from 12/24 NGTD Vancomycin stopped 12/24. Started Daptomycin 8mg/kg every 24 hours per ID recs. Plan per ID: KANDY with possible lead veg, possible but less likely MV veg, thickened AV. 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 EP planning on device removal. Repeat blood cultures after removal - can replace when negative at 72 hrs. Cont D[address]o Follow CT spine Lab Results Component Value Date WBC 7.71 12/29/2024 WBC 8.24 12/28/2024 Lumbar spine pain-improved Has chronic lumbar pain 2/2 arthritis Pain was worse on admission CT showed severe degenerative disease - New CT of C/T/L spine ordered per ID rec. ICD is not MRI compatible Chronic systolic heart failure (HFrEF) / non-ischemic cardiomyopathy NYHA class II, ACC/AHA C EF , LVIDD: Lab Results Component Value Date NTERMINALPRO 395 (H) 12/23/2024 Diuresis: none Beta blockade: Continue coreg 25 mg bid ACEi / ARB / ARNI: Continue entresto 24/26 mg bid MRA: Continue aldactone 25 mg daily SGLT2i: none Vasodilator: Inotrope: ICD / RESISTOR INSPECTOR: RESISTOR INSPECTOR-D Heart Healthy diet with 4 gram Na, 2L fluid restriction Weigh daily Strict I/O Hypertensive Heart Disease - medications as above BP Readings from Last 3 Encounters: 12/29/24 117/75 01/28/14 100/57 10/05/13 118/74 Hyperlipidemia - Continue Atorvastatin 10 mg Lab Results Component Value Date CHOLESTEROL 124 12/23/2024 TRIG 138 12/23/2024 HDL 26 (L) 12/23/2024 LDLCALC 70 12/23/2024 Electrolyte Monitoring - Maintain K > 4, Mg > 2 - Replete PRN - Na Lab Results Component Value Date SODIUM 137 12/29/2024 SODIUM 136 12/28/2024 SODIUM 137 12/27/2024 - K+ Lab Results Component Value Date POTASSIUM 4.1 12/29/2024 POTASSIUM 4.1 12/28/2024 POTASSIUM 4.2 12/27/2024 - Cl Lab Results Component Value Date CHLORIDE 101 12/29/2024 CHLORIDE 99 12/28/2024 CHLORIDE 103 12/27/2024 - Mg Lab Results Component Value Date MAGNESIUM 2.2 12/29/2024 MAGNESIUM 2.0 12/28/2024 MAGNESIUM 2.0 12/27/2024 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 Lab Results Component Value Date HGB 12.7 12/29/2024 HGB 12.0 12/28/2024 HGB 11.8 12/27/2024 Lab Results Component Value Date IRON 65 12/23/2024 FERRITIN 63.6 12/23/2024 Lab Results Component Value Date TRANSFERRIN 268 12/23/2024 Lab Results Component Value Date TIBC 335 12/23/2024 Lab Results Component Value Date IRONSATURAT 19 (L) 12/23/2024 Obesity (Body mass index is 36.55 kg/m .; Class I= 30-34.9, Class II= 35-39.9, Class III= > 40; <19 -consider cardiac cachexia) Patient given education regarding Lifestyle Modification Secondary to Excess Caloric intake and decreased Caloric Expenditure Diabetes Mellitus Type 2 - On home glargine 40 units bid plus sliding scale with weekly trulicity - Insulin Lispro 4 unts daily AC and HS with SS - Recs from Endo: Basal/Mealtime - Basal: U100 Glargine PENS with needles, dose 40 units every 12 hours. (Or insurance covered equivalent.) No Titration. - Mealtime time insulin: FixedvsFlexible: Fixed: U100 Lispro Pens with Pen Lackey MAX DAILY DOSE 150 units 30 Units for Large Meal or 15 Units for Small Meal PLUS Correction Scale Subcutaneous every meal and at bedtime Correction Scale: (Copy and paste into Note to Pharmacy) Custom: 150-200 = 3 unit 201-250 = 6 units 251-300 = 9 units 301-350 = 12 units 351-400 = 15 units Recent Labs 12/28/24 1501 12/28/24 1850 12/28/24 2033 12/29/24 0515 12/29/24 0637 12/29/24 1254 GLUCOSE 337* 258* 201* 213* 249* 179 Lab Results Component Value Date HGBA1C 10.8 (H) 12/23/2024 Complexity. Obesity, Class II Body mass index is 36.55 kg/m . - Follow with PCP for dietary and lifestyle modifications. Wound Documentation Pacemaker/Defibrillator Site 12/29/24 1400 (Active) Placement Date/Time: 12/29/24 1400 Location: left upper chest Wound Surgical Sheath Site 12/29/24 1416 Right Femoral (Active) Date First Assessed/Time First Assessed: 12/29/24 1416 Primary Wound Type: Surgical Secondary Wound Type - Surgical: Sheath Site Present on Original Admission: No Wound Location Orientation: Right Location: Femoral Objective: Temp: [97.6 F (36.4 C)-99.7 F (37.6 C)] 99.7 F (37.6 C) Pulse (Heart Rate): [74-105] 86 Resp Rate: [10-22] 12 BP: (115-159)/(67-76) 117/75 Arterial Line (1) BP: (133-142)/(68-69) 133/68 O2 Sat (%): [94 %-100 %] 99 % Weight: [112.3 kg (247 lb 8 oz)] 112.3 kg (247 lb 8 oz) Body mass index is 36.55 kg/m . Physical Exam Constitutional: No distress. Eyes: Pupils are equal, round, and reactive to light. Neck: No JVD present. Cardiovascular: Normal rate, regular rhythm, normal heart sounds and normal pulses. Pulmonary/Chest: Effort normal and breath sounds normal. Abdominal: Soft. Bowel sounds are normal. Musculoskeletal: General: Edema present. Neurological: She is alert and oriented to person, place, and time. Patient Lines/Drains/Airways Status Active Lines, Drains, Airways, & Wound Overview Name Placement date Placement time Site Days Peripheral IV Line - Single Lumen 12/23/24 2350 pink median cubital vein (antecubital fossa), right 20 gauge 12/23/24 2350 -- 5 Peripheral IV Line - Single Lumen 12/26/24 1527 blue cephalic vein (lateral side of arm), left 22 gauge 12/26/24 1527 -- 2 Peripheral IV Line - Single Lumen 12/29/24 0924 forearm, anterior, left 18 gauge;1 1/4 in length 12/29/24 0924 -- less than 1 Arterial Line 12/29/24 1159 radial artery, left 12/29/24 1159 -- less than 1 Pacemaker/Defibrillator Site 12/29/24 1400 12/29/24 1400 -- less than 1 Wound Surgical Sheath Site 12/29/24 1416 Right Femoral 12/29/24 1416 Femoral less than 1 Data Review: ECHOCARDIOGRAM 01/28/2014 Transthoracic Echocardiogram: Conclusions 1. Normal left ventricular size with mod-severely reduced systolic function, LVEF 25-30%. 2. Normal right ventricular size with mild-mod reduced systolic function. 3. Wire in RA/RV. 4. No significant valvular heart disease. 5. Compared to the study from 07/2013 there has been mild improvement in systolic function. ECHOCARDIOGRAM 12/25/2024 KANDY: Interpretation Summary Technically challenging study, sub-optimal image quality, even with the use of contrast. Left Ventricle: Chamber size is normal. Normal wall thickness. Normal global systolic function. Regional wall motion is normal regional wall motion not well visualized. Ejection fraction is normal (60 - 65%). Diastolic function is normal. Right Ventricle: Right ventricle not well visualized. Chamber size is mildly enlarged. Systolic function is normal. Device wire is present. Valves not well visualized overall, but no overt vegetations noted on limited assessment. No hemodynamically significant valvular disease. No echo/Doppler evidence for pulmonary hypertension. Estimated right ventricular systolic pressure is 29 mmHg. Small pericardial effusion adjacent to the right ventricle without evidence of tamponade. Left Heart Measurements LV - Systole LVIDD 5.7 cm IVS 0.91 cm LVIDS 5 cm PW 0.86 cm LV RWT 0.3 LV Mass Index 83.3 g/m2 LV EDV BP 124 mL LV ESV BP 46 mL BP EF 63 % LV stroke volume BP (ml) 78 mL LV stroke volume index BP 33.62 mL/m2 LV - Diastole MV pk E sirena 1 m/s MV pk A sirena 0.8 m/s E/A ratio 1.25 e' septal pk sirena 0.06 m/s e' lateral pk sirena 0.09 m/s Avg e' pk sirena 0.08 m/s E/e' septal ratio 16.67 E/e' lateral ratio 11.11 Avg E/e' ratio 13.89 LV - HCM AV LVOT peak gradient 3 mmHg Left Atrium LA ESV SP 4CH (MOD) 52 mL LA ESV SP 2CH (MOD) 44 mL LA ESV BP (MOD) index 21 mL/m2 Right Heart Measurements RV - 2D RV basal diam 4.4 cm RV mid diam 4.1 cm RV long diam 7.6 cm RV - Doppler RV S' 2.1 cm/s Right Atrium RA vol index 4CH (MOD) 27.16 mL/m2 EST RAP 8 mmHg RA area 4CH (MOD) 21 cm2 carveDILOL 25 mg Oral Q12H DAPTOmycin 8 mg/kg (Adjusted) Intravenous Q24H enoxaparin 40 mg Subcutaneous Daily Gabapentin 300 mg Oral Daily insulin glargine 46 Units Subcutaneous Q12H Insulin lispro Subcutaneous 4x daily w/meals, HS Loratadine 10 mg Oral Daily magnesium oxide 400 mg Oral BID nystatin 1 Application Topical BID Pantoprazole 40 mg Oral Daily rOPINIRole 0.5 mg Oral QHS [Held by provider] sacubitril-valsartan 1 tablet Oral Q12H Spironolactone 25 mg Oral Daily Discussed with team on rounds. This plan will be discussed with Dr. Jose Kraft DO, the attending needle control cheniller. 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 We will review glucoses; however, primary team should continue to check blood glucoses daily and reach out to our service with urgent issues DIABETES DISCHARGE PLAN Please contact our team on day of discharge for definitive recs. QGENDA :TEAM 2 Tentative discharge plan: (Please use the Diabetes Discharge Order Set: Diabetes Orders - for those patients discharged on INSULIN) - If orals or non-insulin injectables recommended, will need to order them outside of the Diabetes Orderset. -Resume Trulicity SGLT2i: could consider as eGFR is adequate Discharge Diet: DIET CARB CONTROLLED- 60 Grams per Meal Patient Education: Your target blood sugar is 80-130 mg/dl fasting and under 180 mg/dl nonfasting. Patient needs new insulin scripts at discharge: ASK PATIENT. Basal/Mealtime - Basal: U100 Glargine PENS with needles, dose 40 units every 12 hours. (Or insurance covered equivalent.) No Titration. - Mealtime time insulin: FixedvsFlexible: Fixed: U100 Lispro Pens with Pen Lackey MAX DAILY DOSE 150 units 30 Units for Large Meal or 15 Units for Small Meal PLUS Correction Scale Subcutaneous every meal and at bedtime Correction Scale: (Copy and paste into Note to Pharmacy) Custom: 150-200 = 3 unit 201-250 = 6 units 251-300 = 9 units 301-350 = 12 units 351-400 = 15 units Diabetes Supplies: Does not need new scripts for supplies. The patient will need script for new glucometer: no: Patient prefers any brand or substitute brand covered by insurance Continuous Glucose Monitoring Devices: Continue home CGM (does not need new script) Other Diabetes Supplies: Glucagon (Baqsimi Two Pack) 3 MG/DOSE Powder Follow up needed: Does not need [facility] Endocrinology appt PCP within 1- 2 weeks She would benefit from DM Education but would want to do it locally as she lives about 2 hours from here. CC: Hyperglycemia History of Present Illness: Michelle Jules is a 59 y.o. year old female who is NOT seen at the bedside. Chart reviewed including blood glucose flowsheet. Cr 0.73. Patient is eating well, no nausea. She is NPO this morning from ICD extraction. While NPO glucoses remain >200 mg/dl. Current Diet Orders Procedures DIET NPO with meds Medications with sips of water. Standing Status: Standing Number of Occurrences: 1 NPO Meds:: with meds Current Regimen: Basal: Glargine 40 units Q12 Prandial: Insulin lispro 1 unit for every 2 grams of carbohydrates Correction: Insulin Lispro 3 units for every 25 mg/dl greater than 150mg/dl achs Daily Glucose Review: Date Daily glucose review TDD Basal Prandial/ Correction 12/28/2024 223/260, 340, 337, 258, 201 140 80 40 12/29/2024 249, 179 Review of Systems Diabetes: Negative for symptoms of hypoglycemia Respiratory: Negative for shortness of breath Gastrointestinal: Negative for abdominal pain or nausea All other systems negative. Physical Exam Constitutional: Well-developed, well-nourished, obese female in no acute distress. Pulmonary/Chest: Respirations even and unlabored. Musculoskeletal: No acute abnormalities noted Neurological: Alert and interactive Psych: Cooperative Temp: [97.6 F (36.4 C)-98.3 F (36.8 C)] 98.2 F (36.8 C) Pulse (Heart Rate): [70-105] 74 Resp Rate: [15-22] 15 BP: (112-145)/(56-85) 129/67 O2 Sat (%): [94 %-98 %] 95 % Weight: [112.3 kg (247 lb 8 oz)] 112.3 kg (247 lb 8 oz)Admission (Dosing) Weight: 118.7 kg (261 lb 11.2 oz) Most recent entered Weight: 112.3 kg (247 lb 8 oz) (standing wt) Body mass index is 36.55 kg/m . Background History Michelle Jules is a 59 y.o. 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 BG range since arrival has been 130-359, then 340 this morning. She is eating without problems. Diet is heart healthy without carb control and no carb counts have been documented.she has been receiving corrective doses of insulin lispro that have not been able to prevent the hyperglycemia. Diabetes History: Type of Diabetes: Type 2 Diabetes Mellitus (T2DM) Diagnosis (aprox date): 2002 Family History: T2DM: mother grandparent(s) Outpatient Clinic: PCP Prior regiments: issues with past DM medications: Metformin - affected patient's heart rhythm Steglatro - concern for BRIANA, Scr increased after starting Home regimen: Basal: insulin glargine 36 units q12 hour Prandial: insulin lispro unknown ICR. Typical dose is 33 units per meal Correction: insulin lispro unknown correction dosing Noninsulin injectables: Trulicity 3mg every sat Orals: glyburide (last filled September 2024 for 30 day supply) BP: carvedilol, lasix, and Entresto Heart Failure: no SGLT2i therapy Lipids: atorvastatin Diabetes Complications: peripheral neuropathy, cardiovascular disease, heart failure, and MASLD Date of most recent dilated eye exam: 2023 Tobacco/Nicotine: She reports that she has never smoked. She does not have any smokeless tobacco history on file. DKA occurrences: none History of Pancreatitis: no History of GMI or UTI: None Home blood glucoses: glucose meter: One Touch Verio and Freestyle Libre3+ using reader (not phone) Hypoglycemia: daily to weekly Recent A1c: Lab Results Component Value Date HGBA1C 10.8 (H) 12/23/2024 Lab Results Component Value Date CHOLESTEROL 124 12/23/2024 TRIG 138 12/23/2024 HDL 26 (L) 12/23/2024 LDLCALC 70 12/23/2024 Lab Results Component Value Date SODIUM 136 12/28/2024 POTASSIUM 4.1 12/28/2024 CHLORIDE 99 12/28/2024 CO2 28 12/28/2024 BUN 10 12/28/2024 CREATSERUM 0.73 12/28/2024 GLUCOSE 249 (H) 12/29/2024 No results found for: CREATURINE, MICROALBUMIN, MICALBCREAT Lab Results Component Value Date ALT 14 12/23/2024 No results found for: PREALBUMIN Cardiac echo: EF = Results for orders placed during the hospital encounter of 12/23/24 ECHOCARDIOGRAM TRANSESOPHAGEAL (KANDY) 12/25/2024 (Final) Interpretation Summary KANDY for evaluation of MRSA bacteremia. Possible small filamentous echodensity associated with either the coronary sinus or RV lead, not well seen There is nonspecific thickening of the aortic valve with fibrinous stranding Minimal amount of filamentous stranding present on the atrial side of the mitral valve, more consistent with age related degenerative changes, less likely to represent infection. Left ventricular systolic function is mildly reduced, estimated LVEF ~45-50%. Right ventricular size and systolic function are normal. No thrombus in the left atrium, left atrial appendage, or right atrium. Mild MR. Mild TR. RVSP of 28 mmHg plus right atrial pressure No evidence of interatrial shunt by color Doppler and negative bubble contrast study. Grade 2 aortic atherosclerosis noted in the descending aorta. Trivial to small pericardial effusion. Attempted to complete Inpatient Cardiac Rehab consultation. Patient off unit for testing/procedure. Our team will follow this patient s progress and re-attempt consultation as able when patient is appropriate. Mariah Ferreira, MS ([phone]) IP Cardiopulmonary & Vascular Rehab Summary: HCPOA Care Management Progress Note Met with Patient to review health care power of absorption and adsorption engineer (HCPOA) information booklet. Questions Answered: Yes Patient stated she would like her son to be present when filling out HCPOA document. Patient advised her son will be at the hospital tomorrow, 12/29. Patient requested Care Management Doweler come back tomorrow to complete document. Care Management Doweler agreed to come back to complete. Advanced directives booklet left with patient to review. Lilli Eugene Care Management Doweler Heart Failure 2/Advanced Heart Failure Progress Note Provider: CHAPITO Callejas IDENTIFYING INFORMATION PATIENT: Michelle Jules, 1965, [id number] LOS: 5 Code Status: Full Code Daily Plan: Plan of Care for Today: - Awating CT chest, C/T/L spine. Scheduled for today. - Schedule device removal per EP. Cardiac surgery consulted for backup 2/2 high lead application architect removal - daptomycin 8mg/kg every 24 hours per ID rec. - Consulted Endo to assist managing pt's continued hyperglycemia given current treatment regimen. Subjective/Interval Note Overnight Issues: No overnight events. I/O: UO 425 ml, Net 425 ml/24 hr, Net IO Since Admission: -9,416.95 mL [12/28/24 1221] Daily Weight: Admission weight: 118.7 kg (261#) Current weight: Weight: 112.3 kg (247 lb 9.6 oz) (standing) Diet: DIET HEART HEALTHY - 4 GM SODIUM Telemetry personally reviewed: SR, ventricular paced DVT Prophylaxis: Lovenox Activity: Cardiac rehab and Occupational Therapy Fall Risk: Assessed for patient fall risk and discussed safety measures during rounding. Hospital Course: Michelle Jules is a 59 y.o. female with a PMH significant for ICM/HFrEF, s/p ICD, HTN, HLD, Type II DM with chronic neuropathy, obesity, gout, RLS, allergic rhinitis and recent MRSA bacteremia on vacomycin who presented to the [facility] ED on 12/20/24 with c/o recurrent fevers, N/V and lumbar back pain. Tm 102.1. She had been receiving vancomycin via PICC line (EOT 01/02) but the last couple days she was having trouble with the line and did not receive some doses of her antibiotic. ID was consulted there and blood cultures from 12/20 revealed MRSA. Her vancomycin was continued. She was transferred for consideration of device lead extraction. 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 Concern for line infection vs pacer related endocarditis vs lumbar infection KANDY ordered. Results below. ID was consulted BC x 2 from 12/20 positive for MRSA at [facility] BC from 12/24 NGTD Vancomycin stopped 12/24. Started Daptomycin 8mg/kg every 24 hours per ID recs. Plan per ID: KANDY with possible lead veg, possible but less likely MV veg, thickened AV. 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 EP planning on device removal. Repeat blood cultures after removal - can replace when negative at 72 hrs. Cont Dapto Follow CT spine EP consulted. Agreeable to device extraction. Lab Results Component Value Date WBC 8.24 12/28/2024 WBC 6.48 12/27/2024 Lumbar spine pain-improved Has chronic lumbar pain 2/2 arthritis Pain was worse on admission CT showed severe degenerative disease - New CT of C/T/L spine ordered per ID rec. ICD is not MRI compatible Chronic systolic heart failure (HFrEF) / non-ischemic cardiomyopathy NYHA class II, ACC/AHA C EF , LVIDD: Lab Results Component Value Date NTERMINALPRO 395 (H) 12/23/2024 Diuresis: none Beta blockade: Continue coreg 25 mg bid ACEi / ARB / ARNI: Continue entresto 24/26 mg bid MRA: Continue aldactone 25 mg daily SGLT2i: none Vasodilator: Inotrope: ICD / RESISTOR INSPECTOR: RESISTOR INSPECTOR-D Heart Healthy diet with 4 gram Na, 2L fluid restriction Weigh daily Strict I/O Hypertensive Heart Disease - medications as above BP Readings from Last 3 Encounters: 12/28/24 138/85 01/28/14 100/57 10/05/13 118/74 Hyperlipidemia - Continue Atorvastatin 10 mg Lab Results Component Value Date CHOLESTEROL 124 12/23/2024 TRIG 138 12/23/2024 HDL 26 (L) 12/23/2024 LDLCALC 70 12/23/2024 Electrolyte Monitoring - Maintain K > 4, Mg > 2 - Replete PRN - Na Lab Results Component Value Date SODIUM 136 12/28/2024 SODIUM 137 12/27/2024 SODIUM 141 12/26/2024 - K+ Lab Results Component Value Date POTASSIUM 4.1 12/28/2024 POTASSIUM 4.2 12/27/2024 POTASSIUM 3.8 12/26/2024 - Cl Lab Results Component Value Date CHLORIDE 99 12/28/2024 CHLORIDE 103 12/27/2024 CHLORIDE 103 12/26/2024 - Mg Lab Results Component Value Date MAGNESIUM 2.0 12/28/2024 MAGNESIUM 2.0 12/27/2024 MAGNESIUM 2.1 12/26/2024 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 Lab Results Component Value Date HGB 12.0 12/28/2024 HGB 11.8 12/27/2024 HGB 12.7 12/26/2024 Lab Results Component Value Date IRON 65 12/23/2024 FERRITIN 63.6 12/23/2024 Lab Results Component Value Date TRANSFERRIN 268 12/23/2024 Lab Results Component Value Date TIBC 335 12/23/2024 Lab Results Component Value Date IRONSATURAT 19 (L) 12/23/2024 Obesity (Body mass index is 36.56 kg/m .; Class I= 30-34.9, Class II= 35-39.9, Class III= > 40; <19 -consider cardiac cachexia) Patient given education regarding Lifestyle Modification Secondary to Excess Caloric intake and decreased Caloric Expenditure Diabetes Mellitus Type 2 - On home glargine 40 units bid plus sliding scale with weekly trulicity - Insulin Lispro 4 unts daily AC and HS with SS Recent Labs 12/27/24 1159 12/27/24 1616 12/27/24 2120 12/28/24 0415 12/28/24 0622 12/28/24 1056 GLUCOSE 282* 302* 359* 223* 260* 340* Lab Results Component Value Date HGBA1C 10.8 (H) 12/23/2024 Complexity. Obesity, Class II Body mass index is 36.56 kg/m . - Follow with PCP for dietary and lifestyle modifications. Wound Documentation Objective: Temp: [97.9 F (36.6 C)-98.6 F (37 C)] 98.2 F (36.8 C) Pulse (Heart Rate): [64-91] 78 Resp Rate: [16-23] 20 BP: (95-145)/(56-85) 138/85 O2 Sat (%): [94 %-96 %] 95 % Weight: [112.3 kg (247 lb 9.6 oz)] 112.3 kg (247 lb 9.6 oz) Body mass index is 36.56 kg/m . Physical Exam Constitutional: No distress. Eyes: Pupils are equal, round, and reactive to light. Neck: No JVD present. Cardiovascular: Normal rate, regular rhythm, normal heart sounds and normal pulses. Pulmonary/Chest: Effort normal and breath sounds normal. Abdominal: Soft. Bowel sounds are normal. Musculoskeletal: General: Edema present. Neurological: She is alert and oriented to person, place, and time. Patient Lines/Drains/Airways Status Active Lines, Drains, Airways, & Wound Overview Name Placement date Placement time Site Days Peripheral IV Line - Single Lumen 12/23/24 2350 pink median cubital vein (antecubital fossa), right 20 gauge 12/23/24 2350 -- 4 Peripheral IV Line - Single Lumen 12/26/24 1527 blue cephalic vein (lateral side of arm), left 22 gauge 12/26/24 1527 -- 1 Data Review: ECHOCARDIOGRAM 01/28/2014 Transthoracic Echocardiogram: Conclusions 1. Normal left ventricular size with mod-severely reduced systolic function, LVEF 25-30%. 2. Normal right ventricular size with mild-mod reduced systolic function. 3. Wire in RA/RV. 4. No significant valvular heart disease. 5. Compared to the study from 07/2013 there has been mild improvement in systolic function. ECHOCARDIOGRAM 12/25/2024 KANDY: Interpretation Summary Technically challenging study, sub-optimal image quality, even with the use of contrast. Left Ventricle: Chamber size is normal. Normal wall thickness. Normal global systolic function. Regional wall motion is normal regional wall motion not well visualized. Ejection fraction is normal (60 - 65%). Diastolic function is normal. Right Ventricle: Right ventricle not well visualized. Chamber size is mildly enlarged. Systolic function is normal. Device wire is present. Valves not well visualized overall, but no overt vegetations noted on limited assessment. No hemodynamically significant valvular disease. No echo/Doppler evidence for pulmonary hypertension. Estimated right ventricular systolic pressure is 29 mmHg. Small pericardial effusion adjacent to the right ventricle without evidence of tamponade. Left Heart Measurements LV - Systole LVIDD 5.7 cm IVS 0.91 cm LVIDS 5 cm PW 0.86 cm LV RWT 0.3 LV Mass Index 83.3 g/m2 LV EDV BP 124 mL LV ESV BP 46 mL BP EF 63 % LV stroke volume BP (ml) 78 mL LV stroke volume index BP 33.62 mL/m2 LV - Diastole MV pk E sirena 1 m/s MV pk A sirena 0.8 m/s E/A ratio 1.25 e' septal pk sirena 0.06 m/s e' lateral pk sirena 0.09 m/s Avg e' pk sirena 0.08 m/s E/e' septal ratio 16.67 E/e' lateral ratio 11.11 Avg E/e' ratio 13.89 LV - HCM AV LVOT peak gradient 3 mmHg Left Atrium LA ESV SP 4CH (MOD) 52 mL LA ESV SP 2CH (MOD) 44 mL LA ESV BP (MOD) index 21 mL/m2 Right Heart Measurements RV - 2D RV basal diam 4.4 cm RV mid diam 4.1 cm RV long diam 7.6 cm RV - Doppler RV S' 2.1 cm/s Right Atrium RA vol index 4CH (MOD) 27.16 mL/m2 EST RAP 8 mmHg RA area 4CH (MOD) 21 cm2 carveDILOL 25 mg Oral Q12H DAPTOmycin 8 mg/kg (Adjusted) Intravenous Q24H enoxaparin 40 mg Subcutaneous Daily Gabapentin 300 mg Oral Daily insulin glargine 40 Units Subcutaneous Q12H Insulin lispro Subcutaneous 4x daily w/meals, HS iohexol 1-171 mL Intravenous Once Loratadine 10 mg Oral Daily magnesium oxide 400 mg Oral BID nystatin 1 Application Topical BID Pantoprazole 40 mg Oral Daily rOPINIRole 0.5 mg Oral QHS [Held by provider] sacubitril-valsartan 1 tablet Oral Q12H Spironolactone 25 mg Oral Daily Discussed with team on rounds. This plan will be discussed with Dr. Wallace Lugo MD, the attending needle control cheniller. DISCHARGE PLANNING: Dispo/Debility -Home with services Follow Up Appointments: No Follow Up needed in Heart Failure Clinic Please Ensure Follow Up Labs / Testing are scheduled: TBD CHAPITO Callejas HF2/Advanced Heart Failure Phone: [phone] Cosigned by CHAPITO Branch at 12/28/2024 4:06 PM EDT Heart Failure 2/Advanced Heart Failure Progress Note Provider: CHAPITO Branch IDENTIFYING INFORMATION PATIENT: Michelle Jules, 1965, [id number] LOS: 5 Code Status: Full Code Daily Plan: Plan of Care for Today: - CT C/T/L spine and CT chest to be completed today - Schedule device removal per EP. Cardiac surgery consulted for backup 2/2 high lead application architect removal. Procedure tentatively scheduled for 12/29. - ID following, appreciate assistance - Continue daptomycin per ID recommendations (12/24 - ) - Increase SSI to high - Consult endocrinology for assistance with hyperglycemia Subjective/Interval Note Overnight Issues: No acute concerns I/O: UO 2440 mL, Net negative 1450 mL/24 hr, Net IO Since Admission: -9,416.95 mL [12/28/24 1202] Daily Weight: Admission weight: 118.7 kg (261#) Current weight: Weight: 112.3 kg (247 lb 9.6 oz) (standing) Diet: DIET HEART HEALTHY - 4 GM SODIUM Telemetry personally reviewed: V-paced DVT Prophylaxis: Lovenox Activity: Cardiac rehab and Occupational Therapy Fall Risk: Assessed for patient fall risk and discussed safety measures during rounding. Hospital Course: Michelle Jules is a 59 y.o. female with a PMH significant for ICM/HFrEF, s/p ICD, HTN, HLD, Type II DM with chronic neuropathy, obesity, gout, RLS, allergic rhinitis and recent MRSA bacteremia on vacomycin who presented to the [facility] ED on 12/20/24 with c/o recurrent fevers, N/V and lumbar back pain. Tm 102.1. She had been receiving vancomycin via PICC line (EOT 01/02) but the last couple days she was having trouble with the line and did not receive some doses of her antibiotic. ID was consulted there and blood cultures from 12/20 revealed MRSA. Her vancomycin was continued. She was transferred for consideration of device lead extraction. Primary Diagnosis: MRSA bacteremia with sepsis 11/2024 Pt originally diagnosed with MRSA bacteremia at an [facility] and started on IV vanco and DC with PICC with EOT planned for 01/02/2025. She represented to [facility] with fever, N/V and had missed some of her doses of Vanco 2/2 issues with her PICC line. She had a KANDY at the [facility] which she reports at negative during her original admission. When she presented again, they repeated blood cultures which again came back positive for MRSA. She was then transferred to [facility] to evaluate need for device extraction. She also had concerns of back pain with her new presentation and will undergo imagining of her spine to rule out infectious source. - ID consulted, appreciate assistance ID Recs: Diagnostics: KANDY for further evaluation: completed 12/25 MRI spines with and without contrast: Unable to complete 2/2 atrial lead not MRI compatible. CT C/T/L spine ordered. Can plan to do MRIs once device is removed if needed. Pending CT C/T/L results. Check CK level: 41 12/25 Blood culture (12/24): NGTD 4/5 X 2 Therapeutics: Continue IV daptomycin 8 mg/kg daily Recommend device extraction for source control Antibiotics: Vanc started at OSH--Changed to Daptomycin Indications: MRSA bacteremia EOT originally 01/02 BC x 2 from 12/20 positive for MRSA at [facility] Blood culture here at [facility] 12/24 negative day 10/17 X 2 Vancomycin stopped 12/24. Started Daptomycin 8mg/kg every 24 hours per ID recs. KANDY completed. EP consulted Planning for device removal, tentatively for 12/29 Pt Agreeable to device extraction Cardiac surgery would also like CT chest completed, pending Lab Results Component Value Date WBC 8.24 12/28/2024 WBC 6.48 12/27/2024 Lumbar spine pain-improved Has chronic lumbar pain 2/2 arthritis Pain was worse on admission CT at [facility] showed severe degenerative disease - New CT of C/T/L spine ordered per ID rec and pending Atrial lead is not MRI compatible Chronic systolic heart failure (HFrEF) / non-ischemic cardiomyopathy NYHA class II, ACC/AHA C EF 60-65%, LVIDD: 5.7 on TTE 12/24 Lab Results Component Value Date NTERMINALPRO 395 (H) 12/23/2024 Diuresis: none Beta blockade: Continue coreg 25 mg bid ACEi / ARB / ARNI: Continue entresto 24/26 mg bid --> holding for upcoming EP procedure MRA: Continue aldactone 25 mg daily SGLT2i: none Vasodilator: Inotrope: ICD / RESISTOR INSPECTOR: RESISTOR INSPECTOR-D, with plans for removal as above Heart Healthy diet with 4 gram Na, 2L fluid restriction Weigh daily Strict I/O Hypertensive Heart Disease - Medications as above BP Readings from Last 3 Encounters: 12/28/24 138/85 01/28/14 100/57 10/05/13 118/74 Hyperlipidemia - Continue Atorvastatin 10 mg Lab Results Component Value Date CHOLESTEROL 124 12/23/2024 TRIG 138 12/23/2024 HDL 26 (L) 12/23/2024 LDLCALC 70 12/23/2024 Electrolyte Monitoring - Maintain K > 4, Mg > 2 - Replete PRN - Na Lab Results Component Value Date SODIUM 136 12/28/2024 SODIUM 137 12/27/2024 SODIUM 141 12/26/2024 - K+ Lab Results Component Value Date POTASSIUM 4.1 12/28/2024 POTASSIUM 4.2 12/27/2024 POTASSIUM 3.8 12/26/2024 - Cl Lab Results Component Value Date CHLORIDE 99 12/28/2024 CHLORIDE 103 12/27/2024 CHLORIDE 103 12/26/2024 - Mg Lab Results Component Value Date MAGNESIUM 2.0 12/28/2024 MAGNESIUM 2.0 12/27/2024 MAGNESIUM 2.1 12/26/2024 Class II Obesity (Body mass index is 36.56 kg/m .; Class I= 30-34.9, Class II= 35-39.9, Class III= > 40; <19 -consider cardiac cachexia) Patient given education regarding Lifestyle Modification Secondary to Excess Caloric intake and decreased Caloric Expenditure Diabetes Mellitus Type 2 - On home glargine 40 units bid plus sliding scale with weekly trulicity - Insulin Lispro 4 unts daily AC and HS with SSI, increased to high - Consult to Endo for assistance with hypoglycemia Recent Labs 12/27/24 1159 12/27/24 1616 12/27/24 2120 12/28/24 0415 12/28/24 0622 12/28/24 1056 GLUCOSE 282* 302* 359* 223* 260* 340* Lab Results Component Value Date HGBA1C 10.8 (H) 12/23/2024 Complexity. Obesity, Class II Body mass index is 36.56 kg/m . - Follow with PCP for dietary and lifestyle modifications. Wound Documentation Objective: Temp: [97.9 F (36.6 C)-98.6 F (37 C)] 98.2 F (36.8 C) Pulse (Heart Rate): [64-91] 78 Resp Rate: [16-23] 20 BP: (95-145)/(56-85) 138/85 O2 Sat (%): [94 %-96 %] 95 % Weight: [112.3 kg (247 lb 9.6 oz)] 112.3 kg (247 lb 9.6 oz) Body mass index is 36.56 kg/m . Physical Exam Constitutional: No distress. Neck: No JVD present. Cardiovascular: Normal rate, regular rhythm, S1 normal and S2 normal. Pulses: Radial pulses are 2+ on the right side and 2+ on the left side. Dorsalis pedis pulses are 1+ on the right side and 1+ on the left side. Pulmonary/Chest: Effort normal and breath sounds normal. Abdominal: Bowel sounds are normal. There is no abdominal tenderness. Large and round Musculoskeletal: General: No edema. Cervical back: Neck supple. Neurological: She is alert and oriented to person, place, and time. Skin: Skin is warm and dry. Patient Lines/Drains/Airways Status Active Lines, Drains, Airways, & Wound Overview Name Placement date Placement time Site Days Peripheral IV Line - Single Lumen 12/23/24 2350 pink median cubital vein (antecubital fossa), right 20 gauge 12/23/24 2350 -- 4 Peripheral IV Line - Single Lumen 12/26/24 1527 blue cephalic vein (lateral side of arm), left 22 gauge 12/26/24 1527 -- 1 Data Review: Recent Labs 12/26/24 0406 12/27/24 0420 12/28/24 0415 WBC 7.69 6.48 8.24 HGB 12.7 11.8 12.0 HCT 39.2 37.0 37.1 PLATELET 177 188 179 SODIUM 141 137 136 POTASSIUM 3.8 4.2 4.1 CHLORIDE 103 103 99 CO2 30 27 28 BUN 8 9 10 CREATSERUM 0.83 0.91 0.73 Lab Results Component Value Date NTERMINALPRO 395 (H) 12/23/2024 Recent Labs 12/28/24 0415 INR 1.1 ECHOCARDIOGRAM 01/28/2014 Transthoracic Echocardiogram: Conclusions 1. Normal left ventricular size with mod-severely reduced systolic function, LVEF 25-30%. 2. Normal right ventricular size with mild-mod reduced systolic function. 3. Wire in RA/RV. 4. No significant valvular heart disease. 5. Compared to the study from 07/2013 there has been mild improvement in systolic function. ECHOCARDIOGRAM 12/25/2024 KANDY: Interpretation Summary Technically challenging study, sub-optimal image quality, even with the use of contrast. Left Ventricle: Chamber size is normal. Normal wall thickness. Normal global systolic function. Regional wall motion is normal regional wall motion not well visualized. Ejection fraction is normal (60 - 65%). Diastolic function is normal. Right Ventricle: Right ventricle not well visualized. Chamber size is mildly enlarged. Systolic function is normal. Device wire is present. Valves not well visualized overall, but no overt vegetations noted on limited assessment. No hemodynamically significant valvular disease. No echo/Doppler evidence for pulmonary hypertension. Estimated right ventricular systolic pressure is 29 mmHg. Small pericardial effusion adjacent to the right ventricle without evidence of tamponade. Left Heart Measurements LV - Systole LVIDD 5.7 cm IVS 0.91 cm LVIDS 5 cm PW 0.86 cm LV RWT 0.3 LV Mass Index 83.3 g/m2 LV EDV BP 124 mL LV ESV BP 46 mL BP EF 63 % LV stroke volume BP (ml) 78 mL LV stroke volume index BP 33.62 mL/m2 LV - Diastole MV pk E sirena 1 m/s MV pk A sirena 0.8 m/s E/A ratio 1.25 e' septal pk sirena 0.06 m/s e' lateral pk sirena 0.09 m/s Avg e' pk sirena 0.08 m/s E/e' septal ratio 16.67 E/e' lateral ratio 11.11 Avg E/e' ratio 13.89 LV - HCM AV LVOT peak gradient 3 mmHg Left Atrium LA ESV SP 4CH (MOD) 52 mL LA ESV SP 2CH (MOD) 44 mL LA ESV BP (MOD) index 21 mL/m2 Right Heart Measurements RV - 2D RV basal diam 4.4 cm RV mid diam 4.1 cm RV long diam 7.6 cm RV - Doppler RV S' 2.1 cm/s Right Atrium RA vol index 4CH (MOD) 27.16 mL/m2 EST RAP 8 mmHg RA area 4CH (MOD) 21 cm2 carveDILOL 25 mg Oral Q12H DAPTOmycin 8 mg/kg (Adjusted) Intravenous Q24H enoxaparin 40 mg Subcutaneous Daily Gabapentin 300 mg Oral Daily insulin glargine 40 Units Subcutaneous Q12H Insulin lispro Subcutaneous 4x daily w/meals, HS iohexol 1-171 mL Intravenous Once Loratadine 10 mg Oral Daily magnesium oxide 400 mg Oral BID nystatin 1 Application Topical BID Pantoprazole 40 mg Oral Daily rOPINIRole 0.5 mg Oral QHS [Held by provider] sacubitril-valsartan 1 tablet Oral Q12H Spironolactone 25 mg Oral Daily Discussed with team on rounds. This plan will be discussed with Dr. Wallace Lugo MD, the attending needle control cheniller. DISCHARGE PLANNING: Dispo/Debility -Home with services Follow Up Appointments: No Follow Up needed in Heart Failure Clinic Please Ensure Follow Up Labs / Testing are scheduled: TRESA Coleman APRN-CAROL HF2/Advanced Heart Failure Phone: [phone] Cosigned by Wallace Lugo MD at 12/28/2024 1:19 PM EDT Associated attestation - Wallace Lugo MD - 12/28/2024 1:19 PM EDT HF 2 Attending Attestation: I saw and personally examined this patient on 12/28 during inpatient rounds with the HF MIRACLE on the HF2 service. I provided a substantive portion of care for this patient. I personally reviewed and interpreted test results and I have performed all aspects of the medical decision making for this encounter. I have reviewed and verified this documentation and it accurately reflects our care. 59 yo female with hx of cardiomyopathy, ASCVD, HFimpEF (last LVEF in 2022 was NL at [facility]), and RESISTOR INSPECTOR-D. She was recently evaluated at [facility] ED for recurrent fevers, N/V, low back pain, Temp as high as 102. She had received vancomycin thru PICC - but has been sporadic recently due to line issues. Blood Cx from 12/20 pos for MRSA. She is referred to [facility] for evaluation and concern for device infection. From a HF perspective she has been very stable and no recent HF hospitalizations. As noted, she has had significant improvement of LVEF per most recent echo at [facility]. She states that she had chronic LBBB and LVEF improved post RESISTOR INSPECTOR. Plan: - Same HF meds - I.D. consult - done - continue daptomycin. - EP consult - planning extraction. - Plan spine CT, chest CT (per CTS), and device extraction --> tentative extraction date 12/29/24. Wallace Lugo M.D. chef de froid Advanced Heart Failure Program Division of Cardiovascular Medicine [facility] [email or web address] ph [phone] fax [phone] ID Team 3 (SOT) Follow-up Note: Reason for follow up: Seeing patient for MRSA bacteremia Identifying information Name: Michelle Jules Date of : 1965 LOS: 5 Subjective The patient was seen and examined at bedside. No significant events overnight. Denied any fever, chest pain, cough or dyspnea Back pain is not too bad Pending CT spines Plan for high-risk device extraction tomorrow. ROS All systems reviewed and negative unless stated above Antimicrobials Daptomycin 12/24-current Current medications As reviewed in the electronic medical record and confirmed from history and/or chart review. Physical Exam Temp: [97.9 F (36.6 C)-98.6 F (37 C)] 98.1 F (36.7 C) Pulse (Heart Rate): [64-91] 70 Resp Rate: [16-23] 22 BP: (95-145)/(56-69) 145/69 O2 Sat (%): [94 %-96 %] 94 % Weight: [112.3 kg (247 lb 9.6 oz)] 112.3 kg (247 lb 9.6 oz) Physical Exam GEN: Awake EYES: no scleral icterus HENT: MMM. NECK: Supple CARDIO: RRR, no murmur. PULM/CHEST: CTAB. No increased work of breathing ABD: Normal bowel sounds, soft, not tender or distended. SKIN: No rashes. NEURO: AOx3. No focal deficits. Psych: normal affect Labs Lab Results Component Value Date WBC 8.24 12/28/2024 HGB 12.0 12/28/2024 HCT 37.1 12/28/2024 PLATELET 179 12/28/2024 MCV 89.0 12/28/2024 Lab Results Component Value Date CREATSERUM 0.73 12/28/2024 Lab Results Component Value Date ALT 14 12/23/2024 AST 14 12/23/2024 ALKPHOS 108 12/23/2024 BILITOTAL 0.3 12/23/2024 BILIDIRECT <0.1 12/23/2024 No results found for: SEDRATE No results found for: CRP Microbiology Data (personally reviewed) Blood cultures: 12/20/24 ([facility]): MRSA (S to tetracycline and TMP-SMX) 12/21/24 (OSH): MRSA 12/24/24 ([facility]H): NGTD Diagnostics and Imaging (personally reviewed) XR CHEST 1 VIEW PORTABLE, 12/23/2024 -Left subclavian 3-lead ICD with lead tips in the right atrium, right ventricle -Stable exam with clear lungs. KANDY, 12/25/24 -Possible small filamentous echodensity associated with either the coronary sinus or RV lead. There is nonspecific thickening of the aortic valve with fibrinous stranding Impression Michelle Jules is a 59 y.o. female with a PMH of ICM/HFrEF, s/p ICD, and recent MRSA bacteremia on vacomycin who presented on 12/23/2024 as a transfer from [facility] for the management of MRSA bacteremia. Relapsed MRSA bacteremia - likely in the setting of an infected ICD pending high-risk extraction. Back pain - pending CT scan to rule out OM or epidural abscesses ICM/HFrEF s/p ICD High-risk medication use - Daptomycin is a high risk medication that requires monitoring of CK at baseline and weekly due to risk of rhabdomyolysis. Estimated Creatinine Clearance: 112 mL/min (by C-G formula based on SCr of 0.73 mg/dL). Recommendations Diagnostics: Follow-up CT spines Follow-up blood cultures to completion Therapeutics: Recommend device extraction for source control Continue IV daptomycin 8 mg/kg daily Isolation: standard ID Team 3 (SOT) Will continue to follow with you. If you have any questions, please reach out to the ID Team 3 (SOT) pager found in QGenda below. The ID Team pagers are available - Saturday through Saturday from 7:00 am to 06:00 pm. For emergent or after hour issues, please call the on-call ID/1st call Fellow pager. [facility] Infectious Disease - Angel Stein [facility] Infectious Disease Fellow Division of Infectious Diseases Cosigned by Abbey Cruz MD at 12/28/2024 10:57 PM EDT Associated attestation - Abbey Cruz MD - 12/28/2024 10:57 PM EDT ID ATTENDING NOTE: I agree with Dr. Stein's note below. I have edited the note to reflect my thoughts including the history, physical exam, and medical decisions. I have independently interviewed and examined the patient on 12/28/24, and I discussed the findings and therapeutic plan with the fellow, and we collaborated on medical decision making for this patient. Briefly, Mrs. Jules reports that she is overall doing ok today with no acute complaints. She denies any fevers, chills, night sweats, shortness of breath, cough, nausea, vomiting, abdominal pain, diarrhea, or skin rashes/lesions. She reports back pain is stable today, and CT spine pending. She is scheduled for device lead removal tomorrow with EP, but unsure of time yet. On physical exam, patient is resting comfortably, well-appearing, and in no acute distress. EOMI and no scleral icterus. No oral lesions. Fair dentition. Neck is supple with no cervical lymphadenopathy. Heart with RRR and no murmurs. No pedal edema. Patient on room air when seen today. Lungs CTAB with no increased work of breathing, wheezing, or crackles. Abdomen soft, not tender, not distended. No skin rashes/lesions. Patient AOx3. No focal neuro deficits. Moves all 4 extremities. Mrs. Jules is a 59-year-old female with past medical history significant for NICM/HFrEF s/p ICD, hypertension, hyperlipidemia, T2DM with chronic neuropathy, obesity, gout, RLS, and recent MRSA bacteremia admitted secondary to transfer from [facility] secondary to fevers, nausea, vomiting, and back pain. 1. Recurrent MRSA bacteremia: Patient with negative blood cultures from 12/23/24. She is currently on IV Daptomycin, and would recommend to continue on this antibiotic hterapy at this time. EP consulted, and planning for device lead removal tomorrow. CT spine pending given back pain, and will follow up on results. Recommend weekly CK while on IV Daptomycin. 2. Lumbar back pain: CT spine pending. 3. HFrEF and NICM 4. High risk medication use: Patient is currently on IV daptomycin, which requires monitoring of CK to reduce risk of toxicity. 5. Estimated Creatinine Clearance: 112 mL/min (by C-G formula based on SCr of 0.73 mg/dL). ID Team 3 (Transplant) will continue to follow with you. Please page with any questions or concerns. Abbey Cruz MD Student Admissions Clerk Division of Infectious Diseases Pager #[phone] Inpatient Cardiopulmonary Rehab Follow Up Visit AND Activity Session Completed. RN approved, as tolerated, and patient agreeable to visit. Patient reports feeling okay without complaints. Activity Session Vitals: 12/28/24 0918 12/28/24 0923 Vital Signs Pulse (Heart Rate) 76 (pre amb) 91 (post amb) Heart Rate Source Monitor Monitor BP 112/56 145/69 MAP (mmHg) 80 mmHg 97 mmHg BP Method Automatic Automatic BP Location Right arm Right arm BP Position Lying Sitting O2 Device room air room air Activity/Level of Assistance Amb in mendoza/independent Ambulation Distance (feet) 250 Symptoms Noted During/After Activity none Positioning Supine, HoB, call light within reach telemetry all intact upon leaving the room Activity session details: Patient agreeable and tolerated ambulation in m[place] without complaints at this time. Fried Frailty Index Weight Loss: Self reported unintentional weight loss >=10lb in previous year? No Unintentional weight loss >=5%? No Weight loss should not be related to diuretic use, dieting, or exercise Exhaustion: How often in the past week is the following true? Everything was an effort? 1 = some or a little of the time (1-2 days) Could not get going? 1 = some or a little of the time (1-2 days) *A point is assigned if the patient answers choice 2 or 3 for either of these statements Physical activity: Less physically active now than you were a year ago? No Walk Time: Attempt #1: 5.1 seconds Attempt #2: 4.62 seconds Walking time in seconds at usual pace over 15 feet: 4.86 seconds Time reflects the average of two measurements with sufficient time for recuperation between walks Cutoffs for time to walk 15 feet criterion for frailty: Men Height Seconds <= 68.11 or 5'8.11 (173 cm) >=7 > 68.11 or 5'8.11 (173 cm) >=6 Women Height Seconds <= 62.6 or 5'2.6 (159 cm) >=7 > 62.6 or 5'2.6 159 cm >=6 Repair Armature Winder Strength: Dominate hand: Right Contraction #1: 32.11 kg Contraction #2: 28.93 kg Contraction #3: 27.57 kg Hand marine operations coordinator strength in kg in the dominate hand: 32.11 kg Measurement reflects use of dominant hand, and best of 3 maximal contractions by 30 s of rest Cutoff for marine operations coordinator strength (kg) criterion for frailty: Men BMI kg <= 24 <=29 24.1-26 <=30 26.1-28 <=30 > 28 <=32 Women BMI kg <= 23 <=17 23.1-26 <=17.3 26.1-29 <=18 > 29 <=21 Frailty score: 0 (Not frail) Scoring range: 0-5; Scores of 1-2 are defined as prefrail and scores >= 3 as frail RN notified/aware. Encouraged continued ambulation and discussed appropriate activity progression. Discharge education reviewed with the patient. Patient s questions/concerns addressed. Mariah Ferreira MS ([phone]) IP Cardiopulmonary & Vascular Rehab Heart Failure 2/Advanced Heart Failure Progress Note Provider: Neelam Hughes PA-C IDENTIFYING INFORMATION PATIENT: Michelle Jules, 1965, [id number] LOS: 4 Code Status: Full Code Daily Plan: Plan of Care for Today: - Pending CT C/T/L spine - Schedule device removal per EP. Cardiac surgery consulted for backup 2/2 high lead application architect removal. Procedure tentatively scheduled for 12/29. - CT chest without contrast ordered per CSY recommendations - ID following - Continue daptomycin per ID recommendations (12/24 - ) - Increase SSI to high Subjective/Interval Note Overnight Issues: No overnight events. I/O: UO 3.2L, Net negative -1.9L/24 hr, Net IO Since Admission: -7,576.95 mL [12/27/24 1235] Daily Weight: Admission weight: 118.7 kg (261#) Current weight: Weight: 112.9 kg (249 lb) Diet: DIET HEART HEALTHY - 4 GM SODIUM DIET NPO with meds Telemetry personally reviewed: V-paced DVT Prophylaxis: Lovenox Activity: Cardiac rehab and Occupational Therapy Fall Risk: Assessed for patient fall risk and discussed safety measures during rounding. Hospital Course: Michelle Jules is a 59 y.o. female with a PMH significant for ICM/HFrEF, s/p ICD, HTN, HLD, Type II DM with chronic neuropathy, obesity, gout, RLS, allergic rhinitis and recent MRSA bacteremia on vacomycin who presented to the [facility] ED on 12/20/24 with c/o recurrent fevers, N/V and lumbar back pain. Tm 102.1. She had been receiving vancomycin via PICC line (EOT 01/02) but the last couple days she was having trouble with the line and did not receive some doses of her antibiotic. ID was consulted there and blood cultures from 12/20 revealed MRSA. Her vancomycin was continued. She was transferred for consideration of device lead extraction. Primary Diagnosis: MRSA bacteremia with sepsis 11/2024 Pt originally diagnosed with MRSA bacteremia at an [facility] and started on IV vanco and DC with PICC with EOT planned for 01/02/2025. She represented to [facility] with fever, N/V and had missed some of her doses of Vanco 2/2 issues with her PICC line. She had a KANDY at the [facility] which she reports at negative during her original admission. When she presented again, they repeated blood cultures which again came back positive for MRSA. She was then transferred to [facility] to evaluate need for device extraction. She also had concerns of back pain with her new presentation and will undergo imagining of her spine to rule out infectious source. - ID consulted, appreciate assistance ID Recs: Diagnostics: KANDY for further evaluation: completed 12/25 MRI spines with and without contrast: Unable to complete 2/2 atrial lead not MRI compatible. CT C/T/L spine ordered. Can plan to do MRIs once device is removed if needed. Pending CT C/T/L results. Check CK level: 41 12/25 Blood culture (12/24): NGTD 2/5 Therapeutics: Continue IV daptomycin 8 mg/kg daily Recommend device extraction for source control Antibiotics: Vanc started at [facility]--Changed to Daptomycin Indications: MRSA bacteremia EOT originally 01/02 BC x 2 from 12/20 positive for MRSA at [facility] Blood culture here at [facility] 12/24 negative day 1/5 X 2 Vancomycin stopped 12/24. Started Daptomycin 8mg/kg every 24 hours per ID recs. KANDY completed. EP consulted Planning for device removal next week, tentatively for 12/29 Pt Agreeable to device extraction Lab Results Component Value Date WBC 6.48 12/27/2024 WBC 7.69 12/26/2024 Lumbar spine pain-improved Has chronic lumbar pain 2/2 arthritis Pain was worse on admission CT at [facility] showed severe degenerative disease - New CT of C/T/L spine ordered per ID rec and pending Atrial lead is not MRI compatible Chronic systolic heart failure (HFrEF) / non-ischemic cardiomyopathy NYHA class II, ACC/AHA C EF , LVIDD: Lab Results Component Value Date NTERMINALPRO 395 (H) 12/23/2024 Diuresis: none Beta blockade: Continue coreg 25 mg bid ACEi / ARB / ARNI: Continue entresto 24/26 mg bid --> holding for upcoming EP procedure MRA: Continue aldactone 25 mg daily SGLT2i: none Vasodilator: Inotrope: ICD / RESISTOR INSPECTOR: RESISTOR INSPECTOR-D, with plans for removal as above Heart Healthy diet with 4 gram Na, 2L fluid restriction Weigh daily Strict I/O Hypertensive Heart Disease - Medications as above BP Readings from Last 3 Encounters: 12/27/24 104/60 01/28/14 100/57 10/05/13 118/74 Hyperlipidemia - Continue Atorvastatin 10 mg Lab Results Component Value Date CHOLESTEROL 124 12/23/2024 TRIG 138 12/23/2024 HDL 26 (L) 12/23/2024 LDLCALC 70 12/23/2024 Electrolyte Monitoring - Maintain K > 4, Mg > 2 - Replete PRN - Na Lab Results Component Value Date SODIUM 137 12/27/2024 SODIUM 141 12/26/2024 SODIUM 141 12/25/2024 - K+ Lab Results Component Value Date POTASSIUM 4.2 12/27/2024 POTASSIUM 3.8 12/26/2024 POTASSIUM 4.1 12/25/2024 - Cl Lab Results Component Value Date CHLORIDE 103 12/27/2024 CHLORIDE 103 12/26/2024 CHLORIDE 105 12/25/2024 - Mg Lab Results Component Value Date MAGNESIUM 2.0 12/27/2024 MAGNESIUM 2.1 12/26/2024 MAGNESIUM 1.9 12/25/2024 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 Lab Results Component Value Date HGB 11.8 12/27/2024 HGB 12.7 12/26/2024 HGB 11.0 (L) 12/25/2024 Lab Results Component Value Date IRON 65 12/23/2024 FERRITIN 63.6 12/23/2024 Lab Results Component Value Date TRANSFERRIN 268 12/23/2024 Lab Results Component Value Date TIBC 335 12/23/2024 Lab Results Component Value Date IRONSATURAT 19 (L) 12/23/2024 Obesity (Body mass index is 36.77 kg/m .; Class I= 30-34.9, Class II= 35-39.9, Class III= > 40; <19 -consider cardiac cachexia) Patient given education regarding Lifestyle Modification Secondary to Excess Caloric intake and decreased Caloric Expenditure Diabetes Mellitus Type 2 - On home glargine 40 units bid plus sliding scale with weekly trulicity - Insulin Lispro 4 unts daily AC and HS with SSI, increased to high Recent Labs 12/26/24 1050 12/26/24 1557 12/26/24 2032 12/27/24 0420 12/27/24 0636 12/27/24 1159 GLUCOSE 257* 266* 269* 227* 253* 282* Lab Results Component Value Date HGBA1C 10.8 (H) 12/23/2024 Complexity. Obesity, Class II Body mass index is 36.77 kg/m . - Follow with PCP for dietary and lifestyle modifications. Wound Documentation Objective: Temp: [97.5 F (36.4 C)-98.6 F (37 C)] 97.7 F (36.5 C) Pulse (Heart Rate): [64-80] 64 Resp Rate: [12-18] 18 BP: (82-126)/(46-60) 104/60 O2 Sat (%): [94 %-95 %] 94 % Weight: [112.9 kg (249 lb)] 112.9 kg (249 lb) Body mass index is 36.77 kg/m . Physical Exam Constitutional: No distress. Neck: No JVD present. Cardiovascular: Normal rate, regular rhythm, S1 normal and S2 normal. Pulses: Radial pulses are 2+ on the right side and 2+ on the left side. Dorsalis pedis pulses are 1+ on the right side and 1+ on the left side. Pulmonary/Chest: Effort normal and breath sounds normal. Abdominal: Bowel sounds are normal. There is no abdominal tenderness. Large and round Musculoskeletal: General: No edema. Cervical back: Neck supple. Neurological: She is alert and oriented to person, place, and time. Skin: Skin is warm and dry. Patient Lines/Drains/Airways Status Active Lines, Drains, Airways, & Wound Overview Name Placement date Placement time Site Days Peripheral IV Line - Single Lumen 12/23/24 2350 pink median cubital vein (antecubital fossa), right 20 gauge 12/23/24 2350 -- 3 Peripheral IV Line - Single Lumen 12/26/24 1527 blue cephalic vein (lateral side of arm), left 22 gauge 12/26/24 1527 -- less than 1 Data Review: Recent Labs 12/25/24 0542 12/25/24 0638 12/26/24 0406 12/27/24 0420 WBC -- 6.08 7.69 6.48 HGB -- 11.0* 12.7 11.8 HCT -- 35.0 39.2 37.0 PLATELET -- 145* 177 188 SODIUM 141 -- 141 137 POTASSIUM 4.1 -- 3.8 4.2 CHLORIDE 105 -- 103 103 CO2 26 -- 30 27 BUN 7 -- 8 9 CREATSERUM 0.72 -- 0.83 0.91 Lab Results Component Value Date NTERMINALPRO 395 (H) 12/23/2024 No results for input(s): ALKPHOS, AST, ALT, ALBUMIN, INR in the last 72 hours. ECHOCARDIOGRAM 01/28/2014 Transthoracic Echocardiogram: Conclusions 1. Normal left ventricular size with mod-severely reduced systolic function, LVEF 25-30%. 2. Normal right ventricular size with mild-mod reduced systolic function. 3. Wire in RA/RV. 4. No significant valvular heart disease. 5. Compared to the study from 07/2013 there has been mild improvement in systolic function. ECHOCARDIOGRAM 12/25/2024 KANDY: Interpretation Summary Technically challenging study, sub-optimal image quality, even with the use of contrast. Left Ventricle: Chamber size is normal. Normal wall thickness. Normal global systolic function. Regional wall motion is normal regional wall motion not well visualized. Ejection fraction is normal (60 - 65%). Diastolic function is normal. Right Ventricle: Right ventricle not well visualized. Chamber size is mildly enlarged. Systolic function is normal. Device wire is present. Valves not well visualized overall, but no overt vegetations noted on limited assessment. No hemodynamically significant valvular disease. No echo/Doppler evidence for pulmonary hypertension. Estimated right ventricular systolic pressure is 29 mmHg. Small pericardial effusion adjacent to the right ventricle without evidence of tamponade. Left Heart Measurements LV - Systole LVIDD 5.7 cm IVS 0.91 cm LVIDS 5 cm PW 0.86 cm LV RWT 0.3 LV Mass Index 83.3 g/m2 LV EDV BP 124 mL LV ESV BP 46 mL BP EF 63 % LV stroke volume BP (ml) 78 mL LV stroke volume index BP 33.62 mL/m2 LV - Diastole MV pk E sirena 1 m/s MV pk A sirena 0.8 m/s E/A ratio 1.25 e' septal pk sirena 0.06 m/s e' lateral pk sirena 0.09 m/s Avg e' pk sirena 0.08 m/s E/e' septal ratio 16.67 E/e' lateral ratio 11.11 Avg E/e' ratio 13.89 LV - HCM AV LVOT peak gradient 3 mmHg Left Atrium LA ESV SP 4CH (MOD) 52 mL LA ESV SP 2CH (MOD) 44 mL LA ESV BP (MOD) index 21 mL/m2 Right Heart Measurements RV - 2D RV basal diam 4.4 cm RV mid diam 4.1 cm RV long diam 7.6 cm RV - Doppler RV S' 2.1 cm/s Right Atrium RA vol index 4CH (MOD) 27.16 mL/m2 EST RAP 8 mmHg RA area 4CH (MOD) 21 cm2 carveDILOL 25 mg Oral Q12H DAPTOmycin 8 mg/kg (Adjusted) Intravenous Q24H enoxaparin 40 mg Subcutaneous Daily Gabapentin 300 mg Oral Daily insulin glargine 40 Units Subcutaneous Q12H Insulin lispro Subcutaneous 4x daily w/meals, HS Loratadine 10 mg Oral Daily magnesium oxide 400 mg Oral BID nystatin 1 Application Topical BID Pantoprazole 40 mg Oral Daily rOPINIRole 0.5 mg Oral QHS [Held by provider] sacubitril-valsartan 1 tablet Oral Q12H Spironolactone 25 mg Oral Daily Discussed with team on rounds. This plan will be discussed with Dr. Wallace Lugo MD, the attending needle control cheniller. DISCHARGE PLANNING: Dispo/Debility -Home with services Follow Up Appointments: No Follow Up needed in Heart Failure Clinic Please Ensure Follow Up Labs / Testing are scheduled: TBD Neelam Hughes PA-C HF2/Advanced Heart Failure Phone: [phone] Heart Failure 2/Advanced Heart Failure Progress Note Provider: Neelam Hughes PA-C IDENTIFYING INFORMATION PATIENT: Michelle Jules, 1965, [id number] LOS: 3 Code Status: Full Code Daily Plan: Plan of Care for Today: - KANDY (12/25) completed - Pending CT C/T/L spine - Schedule device removal per EP. Cardiac surgery consulted for backup 2/2 high lead application architect removal. Procedure tentatively scheduled for 12/29. - CT chest without contrast ordered per CSY recommendations - ID following - Continue daptomycin 8mg/kg every 24 hours per ID recommendations (12/24 - ) Subjective/Interval Note Overnight Issues: No overnight events. I/O: UO 3.2L, Net negative -2.5L/24 hr, Net IO Since Admission: -6,346.95 mL [12/26/24 1521] Daily Weight: Admission weight: 118.7 kg (261#) Current weight: Weight: 114.1 kg (251 lb 8 oz) (standing) Diet: DIET HEART HEALTHY - 4 GM SODIUM DIET NPO with meds Telemetry personally reviewed: SR, ventricular paced DVT Prophylaxis: Lovenox Activity: Cardiac rehab and Occupational Therapy Fall Risk: Assessed for patient fall risk and discussed safety measures during rounding. Hospital Course: Michelle Jules is a 59 y.o. female with a PMH significant for ICM/HFrEF, s/p ICD, HTN, HLD, Type II DM with chronic neuropathy, obesity, gout, RLS, allergic rhinitis and recent MRSA bacteremia on vacomycin who presented to the [facility] ED on 12/20/24 with c/o recurrent fevers, N/V and lumbar back pain. Tm 102.1. She had been receiving vancomycin via PICC line (EOT 01/02) but the last couple days she was having trouble with the line and did not receive some doses of her antibiotic. ID was consulted there and blood cultures from 12/20 revealed MRSA. Her vancomycin was continued. She was transferred for consideration of device lead extraction. Primary Diagnosis: MRSA bacteremia with sepsis 11/2024 Pt originally diagnosed with MRSA bacteremia at an [facility] and started on IV vanco and DC with PICC with EOT planned for 01/02/2025. She represented to [facility] with fever, N/V and had missed some of her doses of Vanco 2/2 issues with her PICC line. She had a KANDY at the [facility] which she reports at negative during her original admission. When she presented again, they repeated blood cultures which again came back positive for MRSA. She was then transferred to [facility] to evaluate need for device extraction. She also had concerns of back pain with her new presentation and will undergo imagining of her spine to rule out infectious source. - ID consulted, appreciate assistance ID Recs: Diagnostics: KANDY for further evaluation: completed 12/25 MRI spines with and without contrast: Unable to complete 2/2 atrial lead not MRI compatible. CT C/T/L spine ordered. Can plan to do MRIs once device is removed if needed. Pending CT C/T/L results. Check CK level: 41 12/25 Blood culture (12/24): NGTD 08/19 Therapeutics: Continue IV daptomycin 8 mg/kg daily Recommend device extraction for source control Antibiotics: Vanc started at [facility]--Changed to Daptomycin Indications: MRSA bacteremia EOT originally 01/02 BC x 2 from 12/20 positive for MRSA at [facility] Blood culture here at [facility] 12/24 negative day 07/19 X 2 Vancomycin stopped 12/24. Started Daptomycin 8mg/kg every 24 hours per ID recs. KANDY completed. EP consulted Planning for device removal next week, tentatively for 12/29 Pt Agreeable to device extraction Lab Results Component Value Date WBC 7.69 12/26/2024 WBC 6.08 12/25/2024 Lumbar spine pain-improved Has chronic lumbar pain 2/2 arthritis Pain was worse on admission CT at [facility] showed severe degenerative disease - New CT of C/T/L spine ordered per ID rec and pending Atrial lead is not MRI compatible Chronic systolic heart failure (HFrEF) / non-ischemic cardiomyopathy NYHA class II, ACC/AHA C EF , LVIDD: Lab Results Component Value Date NTERMINALPRO 395 (H) 12/23/2024 Diuresis: none Beta blockade: Continue coreg 25 mg bid ACEi / ARB / ARNI: Continue entresto 24/26 mg bid --> holding for upcoming EP procedure MRA: Continue aldactone 25 mg daily SGLT2i: none Vasodilator: Inotrope: ICD / RESISTOR INSPECTOR: RESISTOR INSPECTOR-D, with plans for removal as above Heart Healthy diet with 4 gram Na, 2L fluid restriction Weigh daily Strict I/O Hypertensive Heart Disease - Medications as above BP Readings from Last 3 Encounters: 12/26/24 131/62 01/28/14 100/57 10/05/13 118/74 Hyperlipidemia - Continue Atorvastatin 10 mg Lab Results Component Value Date CHOLESTEROL 124 12/23/2024 TRIG 138 12/23/2024 HDL 26 (L) 12/23/2024 LDLCALC 70 12/23/2024 Electrolyte Monitoring - Maintain K > 4, Mg > 2 - Replete PRN - Na Lab Results Component Value Date SODIUM 141 12/26/2024 SODIUM 141 12/25/2024 SODIUM 140 12/24/2024 - K+ Lab Results Component Value Date POTASSIUM 3.8 12/26/2024 POTASSIUM 4.1 12/25/2024 POTASSIUM 3.7 12/24/2024 - Cl Lab Results Component Value Date CHLORIDE 103 12/26/2024 CHLORIDE 105 12/25/2024 CHLORIDE 106 12/24/2024 - Mg Lab Results Component Value Date MAGNESIUM 2.1 12/26/2024 MAGNESIUM 1.9 12/25/2024 MAGNESIUM 1.8 12/24/2024 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 Lab Results Component Value Date HGB 12.7 12/26/2024 HGB 11.0 (L) 12/25/2024 HGB 11.9 12/24/2024 Lab Results Component Value Date IRON 65 12/23/2024 FERRITIN 63.6 12/23/2024 Lab Results Component Value Date TRANSFERRIN 268 12/23/2024 Lab Results Component Value Date TIBC 335 12/23/2024 Lab Results Component Value Date IRONSATURAT 19 (L) 12/23/2024 Obesity (Body mass index is 37.14 kg/m .; Class I= 30-34.9, Class II= 35-39.9, Class III= > 40; <19 -consider cardiac cachexia) Patient given education regarding Lifestyle Modification Secondary to Excess Caloric intake and decreased Caloric Expenditure Diabetes Mellitus Type 2 - On home glargine 40 units bid plus sliding scale with weekly trulicity - Insulin Lispro 4 unts daily AC and HS with SSI Recent Labs 12/25/24 1110 12/25/24 1658 12/25/24200112/26/24 0406 12/26/24 0614 12/26/24 1050 GLUCOSE 142 265* 346* 130 132 257* Lab Results Component Value Date HGBA1C 10.8 (H) 12/23/2024 Complexity. Obesity, Class II Body mass index is 37.14 kg/m . - Follow with PCP for dietary and lifestyle modifications. Wound Documentation Objective: Temp: [97.7 F (36.5 C)-98.3 F (36.8 C)] 98.1 F (36.7 C) Pulse (Heart Rate): [60-75] 62 Resp Rate: [14-16] 16 BP: (122-161)/(58-79) 131/62 O2 Sat (%): [95 %-100 %] 95 % Weight: [114.1 kg (251 lb 8 oz)] 114.1 kg (251 lb 8 oz) Body mass index is 37.14 kg/m . Physical Exam Constitutional: No distress. Neck: No JVD present. Cardiovascular: Normal rate, regular rhythm, S1 normal and S2 normal. Pulses: Radial pulses are 2+ on the right side and 2+ on the left side. Dorsalis pedis pulses are 1+ on the right side and 1+ on the left side. Pulmonary/Chest: Effort normal and breath sounds normal. Abdominal: Bowel sounds are normal. There is no abdominal tenderness. Large and round Musculoskeletal: General: No edema. Cervical back: Neck supple. Neurological: She is alert and oriented to person, place, and time. Skin: Skin is warm and dry. Patient Lines/Drains/Airways Status Active Lines, Drains, Airways, & Wound Overview Name Placement date Placement time Site Days Peripheral IV Line - Single Lumen 12/23/24 2350 pink median cubital vein (antecubital fossa), right 20 gauge 12/23/24 2350 -- 2 Wound 09/03/13 1415 Left upper chest 09/03/13 1415 -- 4132 Data Review: Recent Labs 12/23/24 2342 12/24/24 0504 12/25/24 0542 12/25/24 0638 12/26/24 0406 WBC 5.27 5.70 -- 6.08 7.69 HGB 10.6* 11.9 -- 11.0* 12.7 HCT 33.5* 35.9 -- 35.0 39.2 PLATELET 129* 136* -- 145* 177 SODIUM 138 140 141 -- 141 POTASSIUM 3.9 3.7 4.1 -- 3.8 CHLORIDE 105 106 105 -- 103 CO2 26 27 26 -- 30 BUN 8 7 7 -- 8 CREATSERUM 0.71 0.76 0.72 -- 0.83 NTERMINALPRO 395* -- -- -- -- Lab Results Component Value Date NTERMINALPRO 395 (H) 12/23/2024 Recent Labs 12/23/24 2342 ALKPHOS 108 AST 14 ALT 14 ALBUMIN 3.4* ECHOCARDIOGRAM 01/28/2014 Transthoracic Echocardiogram: Conclusions 1. Normal left ventricular size with mod-severely reduced systolic function, LVEF 25-30%. 2. Normal right ventricular size with mild-mod reduced systolic function. 3. Wire in RA/RV. 4. No significant valvular heart disease. 5. Compared to the study from 07/2013 there has been mild improvement in systolic function. ECHOCARDIOGRAM 12/25/2024 KANDY: Interpretation Summary Technically challenging study, sub-optimal image quality, even with the use of contrast. Left Ventricle: Chamber size is normal. Normal wall thickness. Normal global systolic function. Regional wall motion is normal regional wall motion not well visualized. Ejection fraction is normal (60 - 65%). Diastolic function is normal. Right Ventricle: Right ventricle not well visualized. Chamber size is mildly enlarged. Systolic function is normal. Device wire is present. Valves not well visualized overall, but no overt vegetations noted on limited assessment. No hemodynamically significant valvular disease. No echo/Doppler evidence for pulmonary hypertension. Estimated right ventricular systolic pressure is 29 mmHg. Small pericardial effusion adjacent to the right ventricle without evidence of tamponade. Left Heart Measurements LV - Systole LVIDD 5.7 cm IVS 0.91 cm LVIDS 5 cm PW 0.86 cm LV RWT 0.3 LV Mass Index 83.3 g/m2 LV EDV BP 124 mL LV ESV BP 46 mL BP EF 63 % LV stroke volume BP (ml) 78 mL LV stroke volume index BP 33.62 mL/m2 LV - Diastole MV pk E sirena 1 m/s MV pk A sirena 0.8 m/s E/A ratio 1.25 e' septal pk sirena 0.06 m/s e' lateral pk sirena 0.09 m/s Avg e' pk sirena 0.08 m/s E/e' septal ratio 16.67 E/e' lateral ratio 11.11 Avg E/e' ratio 13.89 LV - HCM AV LVOT peak gradient 3 mmHg Left Atrium LA ESV SP 4CH (MOD) 52 mL LA ESV SP 2CH (MOD) 44 mL LA ESV BP (MOD) index 21 mL/m2 Right Heart Measurements RV - 2D RV basal diam 4.4 cm RV mid diam 4.1 cm RV long diam 7.6 cm RV - Doppler RV S' 2.1 cm/s Right Atrium RA vol index 4CH (MOD) 27.16 mL/m2 EST RAP 8 mmHg RA area 4CH (MOD) 21 cm2 carveDILOL 25 mg Oral Q12H DAPTOmycin 8 mg/kg (Adjusted) Intravenous Q24H enoxaparin 40 mg Subcutaneous Daily Gabapentin 300 mg Oral Daily insulin glargine 40 Units Subcutaneous Q12H Insulin lispro Subcutaneous 4x daily w/meals, HS Loratadine 10 mg Oral Daily magnesium oxide 400 mg Oral BID nystatin 1 Application Topical BID Pantoprazole 40 mg Oral Daily rOPINIRole 0.5 mg Oral QHS [Held by provider] sacubitril-valsartan 1 tablet Oral Q12H Spironolactone 25 mg Oral Daily Discussed with team on rounds. This plan will be discussed with Dr. Wallace Lugo MD, the attending needle control cheniller. DISCHARGE PLANNING: Dispo/Debility -Home with services Follow Up Appointments: No Follow Up needed in Heart Failure Clinic Please Ensure Follow Up Labs / Testing are scheduled: TBD Neelam Hughes PA-C HF2/Advanced Heart Failure Phone: [phone] Cosigned by Wallace Lugo MD at 12/26/2024 5:29 PM EDT Associated attestation - Wallace Lugo MD - 12/26/2024 5:29 PM EDT HF 2 Attending Attestation: I saw and personally examined this patient on 12/26/24 during inpatient rounds with the HF MIRACLE on the HF2 service. I provided a substantive portion of care for this patient. I personally reviewed and interpreted test results and I have performed all aspects of the medical decision making for this encounter. I have reviewed and verified this documentation and it accurately reflects our care. 59 yo female with hx of cardiomyopathy, ASCVD, HFimpEF (last LVEF in 2022 was NL at [facility]), and RESISTOR INSPECTOR-D. She was recently evaluated at [facility] ED for recurrent fevers, N/V, low back pain, Temp as high as 102. She had received vancomycin thru PICC - but has been sporadic recently due to line issues. Blood Cx from 12/20 pos for MRSA. She is referred to [facility] for evaluation and concern for device infection. From a HF perspective she has been very stable and no recent HF hospitalizations. As noted, she has had significant improvement of LVEF per most recent echo at [facility]. She states that she had chronic LBBB and LVEF improved post RESISTOR INSPECTOR. Plan: - Same HF meds - I.D. consult - done - continue daptomycin. - EP consult - done - Plan spine CT, chest CT (per CTS), and device extraction. Wallace Lugo M.D. [employer] Advanced Heart Failure Program Division of Cardiovascular Medicine [facility] [email or web address] ph [phone] fax [phone] Heart Failure 2/Advanced Heart Failure Progress Note Provider: Romelia Coleman APRN-SHIPPING AND RECEIVING WEIGHER IDENTIFYING INFORMATION PATIENT: Michelle Jules, 1965, [id number] LOS: 2 Code Status: Full Code Daily Plan: Plan of Care for Today: - KANDY today, results pending - Schedule device removal per EP. Cardiac surgery consulted for backup 2/2 high lead application architect removal - CT C/T/L spine ordered - daptomycin 8mg/kg every 24 hours per ID rec. Subjective/Interval Note Overnight Issues: No overnight events. I/O: UO 4450 ml, Net negative 2997 ml/24 hr, Net IO Since Admission: -4,321.95 mL [12/25/24 1508] Daily Weight: Admission weight: 118.7 kg (261#) Current weight: Weight: 116.4 kg (256 lb 9.6 oz) (standing) Diet: DIET HEART HEALTHY - 4 GM SODIUM DIET NPO with meds Telemetry personally reviewed: SR, ventricular paced DVT Prophylaxis: Lovenox Activity: Cardiac rehab and Occupational Therapy Fall Risk: Assessed for patient fall risk and discussed safety measures during rounding. Hospital Course: Michelle Jules is a 59 y.o. female with a PMH significant for ICM/HFrEF, s/p ICD, HTN, HLD, Type II DM with chronic neuropathy, obesity, gout, RLS, allergic rhinitis and recent MRSA bacteremia on vacomycin who presented to the [facility] ED on 12/20/24 with c/o recurrent fevers, N/V and lumbar back pain. Tm 102.1. She had been receiving vancomycin via PICC line (EOT 01/02) but the last couple days she was having trouble with the line and did not receive some doses of her antibiotic. ID was consulted there and blood cultures from 12/20 revealed MRSA. Her vancomycin was continued. She was transferred for consideration of device lead extraction. Primary Diagnosis: MRSA bacteremia with sepsis 11/2024 Pt originally diagnosed with MRSA bacteremia at an [facility] and started on IV vanco and DC with PICC with EOT planned for 01/02/2025. She represented to [facility] with fever, N/V and had missed some of her doses of Vanco 2/2 issues with her PICC line. She had a KANDY at the [facility] which she reports at negative during her original admission. When she presented again, they repeated blood cultures which again came back positive for MRSA. She was then transferred to [facility] to evaluate need for device extraction. She also had concerns of back pain with her new presentation and will undergo imagining of her spine to rule out infectious source. - ID consulted, appreciate assistance ID Recs: Diagnostics: KANDY for further evaluation: completed 12/24 MRI spines with and without contrast: Unable to complete 2/2 atrial lead not MRI compatible. CT C/T/L spine ordered. Can plan to do MRIs once device is removed if needed Check CK level: 41 12/25 Therapeutics: Recommend device extraction for source control stop IV vancomycin: done 12/24 Start IV daptomycin 8 mg/kg daily ([id number]): done 12/24 Antibiotics: Vanc started at [facility]--Changed to Daptomycin Indications: MRSA bacteremia EOT originally 01/02 BC x 2 from 12/20 positive for MRSA at [facility] Blood culture here at [facility] 12/24 negative day 1 X 2 Vancomycin stopped 12/24. Started Daptomycin 8mg/kg every 24 hours per ID recs. KANDY completed, results pending EP consulted Planning for device removal next week, Pt Agreeable to device extraction No need for reimplantation at this time as pt's current echo with normal EF per Dr. Lugo Lab Results Component Value Date WBC 6.08 12/25/2024 WBC 5.70 12/24/2024 Lumbar spine pain-improved Has chronic lumbar pain 2/2 arthritis Pain was worse on admission CT at [facility] showed severe degenerative disease - New CT of C/T/L spine ordered per ID rec and pending Atrial lead is not MRI compatible Chronic systolic heart failure (HFrEF) / non-ischemic cardiomyopathy NYHA class II, ACC/AHA C EF , LVIDD: Lab Results Component Value Date NTERMINALPRO 395 (H) 12/23/2024 Diuresis: none Beta blockade: Continue coreg 25 mg bid ACEi / ARB / ARNI: Continue entresto 24/26 mg bid MRA: Continue aldactone 25 mg daily SGLT2i: none Vasodilator: Inotrope: ICD / RESISTOR INSPECTOR: RESISTOR INSPECTOR-D Heart Healthy diet with 4 gram Na, 2L fluid restriction Weigh daily Strict I/O Hypertensive Heart Disease - medications as above BP Readings from Last 3 Encounters: 12/25/24 136/64 01/28/14 100/57 10/05/13 118/74 Hyperlipidemia - Continue Atorvastatin 10 mg Lab Results Component Value Date CHOLESTEROL 124 12/23/2024 TRIG 138 12/23/2024 HDL 26 (L) 12/23/2024 LDLCALC 70 12/23/2024 Electrolyte Monitoring - Maintain K > 4, Mg > 2 - Replete PRN - Na Lab Results Component Value Date SODIUM 141 12/25/2024 SODIUM 140 12/24/2024 SODIUM 138 12/23/2024 - K+ Lab Results Component Value Date POTASSIUM 4.1 12/25/2024 POTASSIUM 3.7 12/24/2024 POTASSIUM 3.9 12/23/2024 - Cl Lab Results Component Value Date CHLORIDE 105 12/25/2024 CHLORIDE 106 12/24/2024 CHLORIDE 105 12/23/2024 - Mg Lab Results Component Value Date MAGNESIUM 1.9 12/25/2024 MAGNESIUM 1.8 12/24/2024 MAGNESIUM 1.9 12/23/2024 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 Lab Results Component Value Date HGB 11.0 (L) 12/25/2024 HGB 11.9 12/24/2024 HGB 10.6 (L) 12/23/2024 Lab Results Component Value Date IRON 65 12/23/2024 FERRITIN 63.6 12/23/2024 Lab Results Component Value Date TRANSFERRIN 268 12/23/2024 Lab Results Component Value Date TIBC 335 12/23/2024 Lab Results Component Value Date IRONSATURAT 19 (L) 12/23/2024 Obesity (Body mass index is 37.89 kg/m .; Class I= 30-34.9, Class II= 35-39.9, Class III= > 40; <19 -consider cardiac cachexia) Patient given education regarding Lifestyle Modification Secondary to Excess Caloric intake and decreased Caloric Expenditure Diabetes Mellitus Type 2 - On home glargine 40 units bid plus sliding scale with weekly trulicity - Insulin Lispro 4 unts daily AC and HS with SS Recent Labs 12/24/24 1257 12/24/24 1605 12/24/24 2022 12/25/24 0542 12/25/24 0614 12/25/24 1110 GLUCOSE 295* 226* 190* 132 147 142 Lab Results Component Value Date HGBA1C 10.8 (H) 12/23/2024 Complexity. Thrombocytopenia - Continue to monitor. Obesity, Class II Body mass index is 37.89 kg/m . - Follow with PCP for dietary and lifestyle modifications. Wound Documentation Objective: Temp: [97.7 F (36.5 C)-98.1 F (36.7 C)] 98.1 F (36.7 C) Pulse (Heart Rate): [51-86] 74 Resp Rate: [9-24] 12 BP: (129-174)/(60-116) 136/64 O2 Sat (%): [94 %-98 %] 94 % Weight: [116.4 kg (256 lb 9.6 oz)] 116.4 kg (256 lb 9.6 oz) Body mass index is 37.89 kg/m . Physical Exam Constitutional: No distress. Neck: No JVD present. Cardiovascular: Normal rate, regular rhythm, S1 normal and S2 normal. Pulses: Radial pulses are 2+ on the right side and 2+ on the left side. Dorsalis pedis pulses are 1+ on the right side and 1+ on the left side. Pulmonary/Chest: Effort normal and breath sounds normal. Abdominal: Bowel sounds are normal. There is no abdominal tenderness. Large and round Musculoskeletal: General: No edema. Cervical back: Neck supple. Neurological: She is alert and oriented to person, place, and time. Skin: Skin is warm and dry. Patient Lines/Drains/Airways Status Active Lines, Drains, Airways, & Wound Overview Name Placement date Placement time Site Days Peripheral IV Line - Single Lumen 12/23/24 2350 pink median cubital vein (antecubital fossa), right 20 gauge 12/23/24 2350 -- 1 Wound 09/03/13 1415 Left upper chest 09/03/13 1415 -- 4130 Data Review: Recent Labs 12/23/24 2342 12/24/24 0504 12/25/24 0542 12/25/24 0638 WBC 5.27 5.70 -- 6.08 HGB 10.6* 11.9 -- 11.0* HCT 33.5* 35.9 -- 35.0 PLATELET 129* 136* -- 145* SODIUM 138 140 141 -- POTASSIUM 3.9 3.7 4.1 -- CHLORIDE 105 106 105 -- CO2 26 27 26 -- BUN 8 7 7 -- CREATSERUM 0.71 0.76 0.72 -- NTERMINALPRO 395* -- -- -- Lab Results Component Value Date NTERMINALPRO 395 (H) 12/23/2024 Recent Labs 12/23/24 2342 ALKPHOS 108 AST 14 ALT 14 ALBUMIN 3.4* ECHOCARDIOGRAM 01/28/2014 Transthoracic Echocardiogram: Conclusions 1. Normal left ventricular size with mod-severely reduced systolic function, LVEF 25-30%. 2. Normal right ventricular size with mild-mod reduced systolic function. 3. Wire in RA/RV. 4. No significant valvular heart disease. 5. Compared to the study from 07/2013 there has been mild improvement in systolic function. ECHOCARDIOGRAM 12/25/2024 KANDY: Interpretation Summary Technically challenging study, sub-optimal image quality, even with the use of contrast. Left Ventricle: Chamber size is normal. Normal wall thickness. Normal global systolic function. Regional wall motion is normal regional wall motion not well visualized. Ejection fraction is normal (60 - 65%). Diastolic function is normal. Right Ventricle: Right ventricle not well visualized. Chamber size is mildly enlarged. Systolic function is normal. Device wire is present. Valves not well visualized overall, but no overt vegetations noted on limited assessment. No hemodynamically significant valvular disease. No echo/Doppler evidence for pulmonary hypertension. Estimated right ventricular systolic pressure is 29 mmHg. Small pericardial effusion adjacent to the right ventricle without evidence of tamponade. Left Heart Measurements LV - Systole LVIDD 5.7 cm IVS 0.91 cm LVIDS 5 cm PW 0.86 cm LV RWT 0.3 LV Mass Index 83.3 g/m2 LV EDV BP 124 mL LV ESV BP 46 mL BP EF 63 % LV stroke volume BP (ml) 78 mL LV stroke volume index BP 33.62 mL/m2 LV - Diastole MV pk E sirena 1 m/s MV pk A sirena 0.8 m/s E/A ratio 1.25 e' septal pk sirena 0.06 m/s e' lateral pk sirena 0.09 m/s Avg e' pk sirena 0.08 m/s E/e' septal ratio 16.67 E/e' lateral ratio 11.11 Avg E/e' ratio 13.89 LV - HCM AV LVOT peak gradient 3 mmHg Left Atrium LA ESV SP 4CH (MOD) 52 mL LA ESV SP 2CH (MOD) 44 mL LA ESV BP (MOD) index 21 mL/m2 Right Heart Measurements RV - 2D RV basal diam 4.4 cm RV mid diam 4.1 cm RV long diam 7.6 cm RV - Doppler RV S' 2.1 cm/s Right Atrium RA vol index 4CH (MOD) 27.16 mL/m2 EST RAP 8 mmHg RA area 4CH (MOD) 21 cm2 carveDILOL 25 mg Oral Q12H DAPTOmycin 8 mg/kg (Adjusted) Intravenous Q24H enoxaparin 40 mg Subcutaneous Daily Gabapentin 300 mg Oral Daily insulin glargine 40 Units Subcutaneous Q12H Insulin lispro Subcutaneous 4x daily w/meals, HS Loratadine 10 mg Oral Daily magnesium oxide 400 mg Oral BID nystatin 1 Application Topical BID Pantoprazole 40 mg Oral Daily rOPINIRole 0.5 mg Oral QHS [Held by provider] sacubitril-valsartan 1 tablet Oral Q12H Spironolactone 25 mg Oral Daily Discussed with team on rounds. This plan will be discussed with Dr. Wallace Lugo MD, the attending needle control cheniller. DISCHARGE PLANNING: Dispo/Debility -Home with services Follow Up Appointments: No Follow Up needed in Heart Failure Clinic Please Ensure Follow Up Labs / Testing are scheduled: TBD [facility] HF2/Advanced Heart Failure Phone: [phone] I saw and independently examined this patient today. I discussed my findings and the therapeutic plan with the student. Please use this as my note with my own ROS and physical exam and edits to note where needed. Cosigned by Wallace Lugo MD at 12/25/2024 3:52 PM EDT Associated attestation - Wallace Lugo MD - 12/25/2024 3:52 PM EDT HF 2 Attending Attestation: I saw and personally examined this patient on 12/25/24 during inpatient rounds with the HF MIRACLE on the HF2 service. I provided a substantive portion of care for this patient. I personally reviewed and interpreted test results and I have performed all aspects of the medical decision making for this encounter. I have reviewed and verified this documentation and it accurately reflects our care. 59 yo female with hx of cardiomyopathy, ASCVD, HFimpEF (last LVEF in 2022 was NL at [facility]), and ppICD. She was recently evaluated at [facility] ED for recurrent fevers, N/V, low back pain, Temp as high as 102. She had received vancomycin thru PICC - but has been sporadic recently due to line issues. Blood Cx from 12/20 pos for MRSA. She is referred to [facility] for evaluation and concern for device infection. From a HF perspective she has been very stable and no recent HF hospitalizations. As noted, she has had normalization of LVEF per most recent echo at [facility]. Plan: - Same HF meds - I.D. consult - done - EP consult - done - will likely require KANDY, as well as imaging of spine. - if device extracted for infection, may not need replaced since recovered LV fxn - however some of that recovery may be related to RESISTOR INSPECTOR. LBB pacing could be considered. Wallace Lugo M.D. chef de froid Advanced Heart Failure Program Division of Cardiovascular Medicine [facility] [email or web address] ph [phone] fax [phone] Heart Failure 2/Advanced Heart Failure Progress Note Provider: Kasandra Page APRN-SHIPPING AND RECEIVING WEIGHER IDENTIFYING INFORMATION PATIENT: Michelle Jules, 1965, [id number] LOS: 2 Code Status: Full Code Daily Plan: Plan of Care for Today: - KANDY today to r/o vegetation - Schedule device removal per EP. Cardiac surgery consulted for backup 2/2 high lead application architect removal - CT C/T/L spine ordered - daptomycin 8mg/kg every 24 hours per ID rec. Subjective/Interval Note Overnight Issues: No overnight events. I/O: UO 425 ml, Net 425 ml/24 hr, Net IO Since Admission: -4,321.95 mL [12/25/24 1419] Daily Weight: Admission weight: 118.7 kg (261#) Current weight: Weight: 116.4 kg (256 lb 9.6 oz) (standing) Diet: DIET HEART HEALTHY - 4 GM SODIUM DIET NPO with meds Telemetry personally reviewed: SR, ventricular paced DVT Prophylaxis: Lovenox Activity: Cardiac rehab and Occupational Therapy Fall Risk: Assessed for patient fall risk and discussed safety measures during rounding. Hospital Course: Michelle Jules is a 59 y.o. female with a PMH significant for ICM/HFrEF, s/p ICD, HTN, HLD, Type II DM with chronic neuropathy, obesity, gout, RLS, allergic rhinitis and recent MRSA bacteremia on vacomycin who presented to the [facility] ED on 12/20/24 with c/o recurrent fevers, N/V and lumbar back pain. Tm 102.1. She had been receiving vancomycin via PICC line (EOT 01/02) but the last couple days she was having trouble with the line and did not receive some doses of her antibiotic. ID was consulted there and blood cultures from 12/20 revealed MRSA. Her vancomycin was continued. She was transferred for consideration of device lead extraction. 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 Concern for line infection vs pacer related endocarditis vs lumbar infection KANDY ordered. Results below. ID was consulted BC x 2 from 12/20 positive for MRSA at [facility] Vancomycin stopped 12/24. Started Daptomycin 8mg/kg every 24 hours per ID recs. Plan: ID recommends device removal. EP consulted. Agreeable to device extraction. Lab Results Component Value Date WBC 6.08 12/25/2024 WBC 5.70 12/24/2024 Lumbar spine pain-improved Has chronic lumbar pain 2/2 arthritis Pain was worse on admission CT showed severe degenerative disease - New CT of C/T/L spine ordered per ID rec. ICD is not MRI compatible Chronic systolic heart failure (HFrEF) / non-ischemic cardiomyopathy NYHA class II, ACC/AHA C EF , LVIDD: Lab Results Component Value Date NTERMINALPRO 395 (H) 12/23/2024 Diuresis: none Beta blockade: Continue coreg 25 mg bid ACEi / ARB / ARNI: Continue entresto 24/26 mg bid MRA: Continue aldactone 25 mg daily SGLT2i: none Vasodilator: Inotrope: ICD / RESISTOR INSPECTOR: RESISTOR INSPECTOR-D Heart Healthy diet with 4 gram Na, 2L fluid restriction Weigh daily Strict I/O Hypertensive Heart Disease - medications as above BP Readings from Last 3 Encounters: 12/25/24 136/64 01/28/14 100/57 10/05/13 118/74 Hyperlipidemia - Continue Atorvastatin 10 mg Lab Results Component Value Date CHOLESTEROL 124 12/23/2024 TRIG 138 12/23/2024 HDL 26 (L) 12/23/2024 LDLCALC 70 12/23/2024 Electrolyte Monitoring - Maintain K > 4, Mg > 2 - Replete PRN - Na Lab Results Component Value Date SODIUM 141 12/25/2024 SODIUM 140 12/24/2024 SODIUM 138 12/23/2024 - K+ Lab Results Component Value Date POTASSIUM 4.1 12/25/2024 POTASSIUM 3.7 12/24/2024 POTASSIUM 3.9 12/23/2024 - Cl Lab Results Component Value Date CHLORIDE 105 12/25/2024 CHLORIDE 106 12/24/2024 CHLORIDE 105 12/23/2024 - Mg Lab Results Component Value Date MAGNESIUM 1.9 12/25/2024 MAGNESIUM 1.8 12/24/2024 MAGNESIUM 1.9 12/23/2024 ID Recs: Diagnostics: KANDY for further evaluation: completed 12/24 MRI spines with and without contrast: Unable to complete 08/[address] C/T/L spine ordered. Follow-up pending blood cultures Check CK level: 41 12/25 Therapeutics: Recommend device extraction for source control stop IV vancomycin: done 12/24 Start IV daptomycin 8 mg/kg daily ([id number]): done 12/24 Antibiotics: Vanc started at OSH--Changed to Daptomycin Indications: MRSA bacteremia EOT originally 01/02 Lab Results Component Value Date WBC 6.08 12/25/2024 WBC 5.70 12/24/2024 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 Lab Results Component Value Date HGB 11.0 (L) 12/25/2024 HGB 11.9 12/24/2024 HGB 10.6 (L) 12/23/2024 Lab Results Component Value Date IRON 65 12/23/2024 FERRITIN 63.6 12/23/2024 Lab Results Component Value Date TRANSFERRIN 268 12/23/2024 Lab Results Component Value Date TIBC 335 12/23/2024 Lab Results Component Value Date IRONSATURAT 19 (L) 12/23/2024 Obesity (Body mass index is 37.89 kg/m .; Class I= 30-34.9, Class II= 35-39.9, Class III= > 40; <19 -consider cardiac cachexia) Patient given education regarding Lifestyle Modification Secondary to Excess Caloric intake and decreased Caloric Expenditure Diabetes Mellitus Type 2 - On home glargine 40 units bid plus sliding scale with weekly trulicity - Insulin Lispro 4 unts daily AC and HS with SS Recent Labs 12/24/24 1257 12/24/24 1605 12/24/24 2022 12/25/24 0542 12/25/24 0614 12/25/24 1110 GLUCOSE 295* 226* 190* 132 147 142 Lab Results Component Value Date HGBA1C 10.8 (H) 12/23/2024 Complexity. Thrombocytopenia - Continue to monitor. Obesity, Class II Body mass index is 37.89 kg/m . - Follow with PCP for dietary and lifestyle modifications. Wound Documentation Objective: Temp: [97.7 F (36.5 C)-98.1 F (36.7 C)] 98.1 F (36.7 C) Pulse (Heart Rate): [51-86] 74 Resp Rate: [9-24] 12 BP: (129-174)/(60-116) 136/64 O2 Sat (%): [94 %-98 %] 94 % Weight: [116.4 kg (256 lb 9.6 oz)] 116.4 kg (256 lb 9.6 oz) Body mass index is 37.89 kg/m . Physical Exam Constitutional: No distress. Eyes: Pupils are equal, round, and reactive to light. Neck: No JVD present. Cardiovascular: Normal rate, regular rhythm, normal heart sounds and normal pulses. Pulmonary/Chest: Effort normal and breath sounds normal. Abdominal: Soft. Bowel sounds are normal. Musculoskeletal: General: Edema present. Neurological: She is alert and oriented to person, place, and time. Patient Lines/Drains/Airways Status Active Lines, Drains, Airways, & Wound Overview Name Placement date Placement time Site Days Peripheral IV Line - Single Lumen 12/23/24 235 pink median cubital vein (antecubital fossa), right 20 gauge 12/23/24 2350 -- 1 Wound 09/03/13 1415 Left upper chest 09/03/13 1415 -- 4130 Data Review: Recent Labs 12/23/24 2342 12/24/24 0504 12/25/24 0542 12/25/24 0638 WBC 5.27 5.70 -- 6.08 HGB 10.6* 11.9 -- 11.0* HCT 33.5* 35.9 -- 35.0 PLATELET 129* 136* -- 145* SODIUM 138 140 141 -- POTASSIUM 3.9 3.7 4.1 -- CHLORIDE 105 106 105 -- CO2 26 27 26 -- BUN 8 7 7 -- CREATSERUM 0.71 0.76 0.72 -- NTERMINALPRO 395* -- -- -- Lab Results Component Value Date NTERMINALPRO 395 (H) 12/23/2024 Recent Labs 12/23/24 2342 ALKPHOS 108 AST 14 ALT 14 ALBUMIN 3.4* ECHOCARDIOGRAM 01/28/2014 Transthoracic Echocardiogram: Conclusions 1. Normal left ventricular size with mod-severely reduced systolic function, LVEF 25-30%. 2. Normal right ventricular size with mild-mod reduced systolic function. 3. Wire in RA/RV. 4. No significant valvular heart disease. 5. Compared to the study from 07/2013 there has been mild improvement in systolic function. ECHOCARDIOGRAM 12/25/2024 KANDY: Interpretation Summary Technically challenging study, sub-optimal image quality, even with the use of contrast. Left Ventricle: Chamber size is normal. Normal wall thickness. Normal global systolic function. Regional wall motion is normal regional wall motion not well visualized. Ejection fraction is normal (60 - 65%). Diastolic function is normal. Right Ventricle: Right ventricle not well visualized. Chamber size is mildly enlarged. Systolic function is normal. Device wire is present. Valves not well visualized overall, but no overt vegetations noted on limited assessment. No hemodynamically significant valvular disease. No echo/Doppler evidence for pulmonary hypertension. Estimated right ventricular systolic pressure is 29 mmHg. Small pericardial effusion adjacent to the right ventricle without evidence of tamponade. Left Heart Measurements LV - Systole LVIDD 5.7 cm IVS 0.91 cm LVIDS 5 cm PW 0.86 cm LV RWT 0.3 LV Mass Index 83.3 g/m2 LV EDV BP 124 mL LV ESV BP 46 mL BP EF 63 % LV stroke volume BP (ml) 78 mL LV stroke volume index BP 33.62 mL/m2 LV - Diastole MV pk E sirena 1 m/s MV pk A sirena 0.8 m/s E/A ratio 1.25 e' septal pk sirena 0.06 m/s e' lateral pk sirena 0.09 m/s Avg e' pk sirena 0.08 m/s E/e' septal ratio 16.67 E/e' lateral ratio 11.11 Avg E/e' ratio 13.89 LV - HCM AV LVOT peak gradient 3 mmHg Left Atrium LA ESV SP 4CH (MOD) 52 mL LA ESV SP 2CH (MOD) 44 mL LA ESV BP (MOD) index 21 mL/m2 Right Heart Measurements RV - 2D RV basal diam 4.4 cm RV mid diam 4.1 cm RV long diam 7.6 cm RV - Doppler RV S' 2.1 cm/s Right Atrium RA vol index 4CH (MOD) 27.16 mL/m2 EST RAP 8 mmHg RA area 4CH (MOD) 21 cm2 carveDILOL 25 mg Oral Q12H DAPTOmycin 8 mg/kg (Adjusted) Intravenous Q24H enoxaparin 40 mg Subcutaneous Daily Gabapentin 300 mg Oral Daily insulin glargine 40 Units Subcutaneous Q12H Insulin lispro Subcutaneous 4x daily w/meals, HS Loratadine 10 mg Oral Daily magnesium oxide 400 mg Oral BID Pantoprazole 40 mg Oral Daily rOPINIRole 0.5 mg Oral QHS [Held by provider] sacubitril-valsartan 1 tablet Oral Q12H Spironolactone 25 mg Oral Daily Discussed with team on rounds. This plan will be discussed with Dr. Wallace Lugo MD, the attending needle control cheniller. DISCHARGE PLANNING: Dispo/Debility -Home with services Follow Up Appointments: No Follow Up needed in Heart Failure Clinic Please Ensure Follow Up Labs / Testing are scheduled: TBD CHAPITO Callejas HF2/Advanced Heart Failure Phone: [phone] Cosigned by CHAPITO Branch at 12/28/2024 10:32 AM EDT Progression of Care Note Expected Discharge Date: Assessment and Discharge Plan as of 12/25/2024 12:17 PM Patient will have high lead application architect extraction on Saturday with surgical back up. CM resumed services with patient's TRAINING AND DEVELOPMENT COORDINATOR. Home Health Services [facility]. [facility], [address] [place], [address] Anticipated Services at Discharge: Physical Therapy, Occupational Therapy, Retirement Michelle Mclain RN, BSN Clinical Cell Room Supervisor ID Team 3 (SOT) Follow-up Note: Reason for follow up: Seeing patient for MRSA bacteremia Identifying information Name: Michelle Jules Date of : 1965 LOS: 2 Subjective The patient was seen and examined at bedside. No significant events overnight. Denied any fever, chest pain, cough or dyspnea KANDY this morning ROS All systems reviewed and negative unless stated above Antimicrobials Daptomycin 12/24-current Current medications As reviewed in the electronic medical record and confirmed from history and/or chart review. Physical Exam Temp: [97.7 F (36.5 C)-98.1 F (36.7 C)] 97.9 F (36.6 C) Pulse (Heart Rate): [51-86] 53 Resp Rate: [9-24] 11 BP: (129-174)/(60-116) 155/77 O2 Sat (%): [94 %-98 %] 95 % Weight: [116.4 kg (256 lb 9.6 oz)] 116.4 kg (256 lb 9.6 oz) Physical Exam GEN: Awake EYES: no scleral icterus HENT: MMM. NECK: Supple CARDIO: RRR, no murmur. PULM/CHEST: CTAB. No increased work of breathing ABD: Normal bowel sounds, soft, not tender or distended. SKIN: No rashes. NEURO: AOx3. No focal deficits. Psych: normal affect Labs Lab Results Component Value Date WBC 6.08 12/25/2024 HGB 11.0 (L) 12/25/2024 HCT 35.0 12/25/2024 PLATELET 145 (L) 12/25/2024 MCV 90.0 12/25/2024 Lab Results Component Value Date CREATSERUM 0.72 12/25/2024 Lab Results Component Value Date ALT 14 12/23/2024 AST 14 12/23/2024 ALKPHOS 108 12/23/2024 BILITOTAL 0.3 12/23/2024 BILIDIRECT <0.1 12/23/2024 No results found for: SEDRATE No results found for: CRP Microbiology Data (personally reviewed) Blood cultures: 12/20/24 (OSH): MRSA (S to tetracycline and TMP-SMX) 12/21/24 (OSH): MRSA 12/24/24 (OSH): NGTD Diagnostics and Imaging (personally reviewed) XR CHEST 1 VIEW PORTABLE, 12/23/2024 -Left subclavian 3-lead ICD with lead tips in the right atrium, right ventricle -Stable exam with clear lungs. Impression Michelle Jules is a 59 y.o. female with a PMH of ICM/HFrEF, s/p ICD, and recent MRSA bacteremia on vacomycin who presented on 12/23/2024 as a transfer from OSH for the management of MRSA bacteremia. Relapsed MRSA bacteremia - likely in the setting of ras infected ICD. Would extracted the device to help with source control. It is important to rule out spinal infection in the setting of persistent bacteremia and back pain Back pain - pending CT scan ICM/HFrEF s/p ICD High-risk medication use - Daptomycin is a high risk medication that requires monitoring of CK at baseline and weekly due to risk of rhabdomyolysis. Estimated Creatinine Clearance: 116 mL/min (by C-G formula based on SCr of 0.72 mg/dL). Recommendations Diagnostics: KANDY for further evaluation Follow-up CT spines Follow-up blood cultures Therapeutics: Recommend device extraction for source control Continue IV daptomycin 8 mg/kg daily Isolation: standard ID Team 3 (SOT) Will continue to follow with you. If you have any questions, please reach out to the ID Team 3 (SOT) pager found in QGenda below. The ID Team pagers are available - Saturday through Saturday from 7:00 am to 06:00 pm. For emergent or after hour issues, please call the on-call ID/1st call Fellow pager. [facility] Infectious Disease - [facility] Infectious Disease Fellow Division of Infectious Diseases Cosigned by Hang Zhang DO at 12/25/2024 4:16 PM EDT Associated attestation - Hang Zhang DO - 12/25/2024 4:16 PM EDT Formatting of this note [facility] 01-11-2025 Miscellaneous Notes Problem: Adult Inpatient Plan of Care Goal: Plan of Care Review Outcome: Progressing Goal: Patient-Specific Goal (Individualized) Outcome: Progressing Goal: Absence of Hospital-Acquired Illness or Injury Outcome: Progressing Goal: Optimal Comfort and Wellbeing Outcome: Progressing Goal: Readiness for Transition of Care Outcome: Progressing Problem: Infection Goal: Absence of Infection Signs and Symptoms Outcome: Progressing Goal: Absence of Infection Signs and Symptoms Outcome: Progressing Problem: Fall Injury Risk Goal: Fall/Trauma/Injury Risk: Absence of Trauma/Injury/Falls Description: Patient will demonstrate the desired outcomes. Outcome: Progressing Goal: Knowledge of risk factors/behavior modification Description: Knowledge of risk factors/behavior modification for fall/injury prevention Outcome: Progressing Problem: Oral Intake Inadequate Goal: Improved Oral Intake Outcome: Progressing Goal: Improved Oral Intake Outcome: Progressing Problem: Adult Inpatient Plan of Care Goal: Plan of Care Review Outcome: Progressing Goal: Patient-Specific Goal (Individualized) Outcome: Progressing Goal: Absence of Hospital-Acquired Illness or Injury Outcome: Progressing Goal: Optimal Comfort and Wellbeing Outcome: Progressing Goal: Readiness for Transition of Care Outcome: Progressing Problem: Infection Goal: Absence of Infection Signs and Symptoms Outcome: Progressing Goal: Absence of Infection Signs and Symptoms Outcome: Progressing Problem: Fall Injury Risk Goal: Fall/Trauma/Injury Risk: Absence of Trauma/Injury/Falls Description: Patient will demonstrate the desired outcomes. Outcome: Progressing Goal: Knowledge of risk factors/behavior modification Description: Knowledge of risk factors/behavior modification for fall/injury prevention Outcome: Progressing Problem: Oral Intake Inadequate Goal: Improved Oral Intake Outcome: Progressing Goal: Improved Oral Intake Outcome: Progressing Repeat LFTs significant for ALT 130/AST 323 CK 14,975 Normal saline continues at 100 cc/hr for additional 5 hours. Repeat labs in am. CHAPITO Jha Pager [phone] CK elevated at 12,364 in the setting of receiving IV dapto. Will hold dapto and touch base with ID in the AM for further abx recommendations. Renal function and electrolytes stable on AM labs. Start fluid resuscitation with NS at 100/hr. Update: Discussed with ID, discontinue dapto and start Linezolid 600mg BID. Problem: Adult Inpatient Plan of Care Goal: Plan of Care Review Outcome: Progressing Goal: Patient-Specific Goal (Individualized) Outcome: Progressing Goal: Absence of Hospital-Acquired Illness or Injury Outcome: Progressing Goal: Optimal Comfort and Wellbeing Outcome: Progressing Goal: Readiness for Transition of Care Outcome: Progressing Problem: Infection Goal: Absence of Infection Signs and Symptoms Outcome: Progressing Goal: Absence of Infection Signs and Symptoms Outcome: Progressing Problem: Fall Injury Risk Goal: Fall/Trauma/Injury Risk: Absence of Trauma/Injury/Falls Description: Patient will demonstrate the desired outcomes. Outcome: Progressing Goal: Knowledge of risk factors/behavior modification Description: Knowledge of risk factors/behavior modification for fall/injury prevention Outcome: Progressing Problem: Oral Intake Inadequate Goal: Improved Oral Intake Outcome: Progressing Goal: Improved Oral Intake Outcome: Progressing Nutrition Plan of Care: 1. Continue current diet order. 2. Pt declined oral nutrition supplements. Encourage high protein foods. 3. Monitor for significant weight changes. 4. Monitor GI and skin integrity. 5. Monitor and encourage po intakes with goal of average po being 75%. 6. Metal Stamper to follow. Electrophysiology Consult SIGN OFF Patient had successful RESISTOR INSPECTOR-D extraction in setting of MRSA bacteremia last week. Has been doing well, site well healing. Has not required pacing since. 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 No arrhythmia or pauses on tele. LVEF 60-65% on echo. Based on this we discussed options for re-implant at this time vs later as outpatient and patient in agreement to do so once risk of infection is lowered. 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 Okay for discharge from EP perspective. Case discussed with Dr. Joseph. Thank you for allowing us to participate in the care of Michelle Jules. Our consult team will sign off today, 01/07/25. For our full impression and recommendations, please see our most recent consult / progress note. Regarding follow up, please note the following: Follow Up Appointments No follow up required with our specialty Follow Up Testing No additional testing is required at the follow up visit. Medication Changes No changes were made to patient's cardiovascular medications. If you have any further questions regarding the care of this patient, please do not hesitate to reach out to our team. Abelino Loyola DO 01/07/25 11:22 AM Problem: Adult Inpatient Plan of Care Goal: Plan of Care Review Outcome: Progressing Goal: Patient-Specific Goal (Individualized) Outcome: Progressing Goal: Absence of Hospital-Acquired Illness or Injury Outcome: Progressing Goal: Optimal Comfort and Wellbeing Outcome: Progressing Goal: Readiness for Transition of Care Outcome: Progressing Problem: Fall Injury Risk Goal: Fall/Trauma/Injury Risk: Absence of Trauma/Injury/Falls Description: Patient will demonstrate the desired outcomes. Outcome: Progressing Goal: Knowledge of risk factors/behavior modification Description: Knowledge of risk factors/behavior modification for fall/injury prevention Outcome: Progressing Problem: Adult Inpatient Plan of Care Goal: Plan of Care Review Outcome: Progressing Goal: Patient-Specific Goal (Individualized) Outcome: Progressing Goal: Absence of Hospital-Acquired Illness or Injury Outcome: Progressing Goal: Optimal Comfort and Wellbeing Outcome: Progressing Goal: Readiness for Transition of Care Outcome: Progressing Problem: Infection Goal: Absence of Infection Signs and Symptoms Outcome: Progressing Problem: Fall Injury Risk Goal: Fall/Trauma/Injury Risk: Absence of Trauma/Injury/Falls Description: Patient will demonstrate the desired outcomes. Outcome: Progressing Goal: Knowledge of risk factors/behavior modification Description: Knowledge of risk factors/behavior modification for fall/injury prevention Outcome: Progressing Problem: Oral Intake Inadequate Goal: Improved Oral Intake Outcome: Progressing The patient's renal function is stable for MRI brain with and without contrast. She has not had an BRIANA since admitted and her creatinine has been stable. There are no current contraindications to contrast dye exposure. Problem: Adult Inpatient Plan of Care Goal: Plan of Care Review Outcome: Progressing Goal: Patient-Specific Goal (Individualized) Outcome: Progressing Goal: Absence of Hospital-Acquired Illness or Injury Outcome: Progressing Goal: Optimal Comfort and Wellbeing Outcome: Progressing Goal: Readiness for Transition of Care Outcome: Progressing Problem: Infection Goal: Absence of Infection Signs and Symptoms Outcome: Progressing Problem: Fall Injury Risk Goal: Fall/Trauma/Injury Risk: Absence of Trauma/Injury/Falls Description: Patient will demonstrate the desired outcomes. Outcome: Progressing Goal: Knowledge of risk factors/behavior modification Description: Knowledge of risk factors/behavior modification for fall/injury prevention Outcome: Progressing Problem: Oral Intake Inadequate Goal: Improved Oral Intake Outcome: Progressing 01/04/25 1339 Outlier Review Reviewing for: Outlier Meeting Medical Necessity: Yes Medical Necessity Summary: Lumbar Puncture done today for concern for infection, still need head CT, may be brain MRI, and RESISTOR INSPECTOR-d Reimplantation after BC negative for 72 hours. Barriers: IV Drug Needs;Standard Treatment/Therapy;Medical Complications Michelle Mclain RN, BSN Clinical Cell Room Supervisor Problem: Adult Inpatient Plan of Care Goal: Plan of Care Review Outcome: Progressing Goal: Patient-Specific Goal (Individualized) Outcome: Progressing Goal: Absence of Hospital-Acquired Illness or Injury Outcome: Progressing Goal: Optimal Comfort and Wellbeing Outcome: Progressing Goal: Readiness for Transition of Care Outcome: Progressing Problem: Infection Goal: Absence of Infection Signs and Symptoms Outcome: Progressing Problem: Fall Injury Risk Goal: Fall/Trauma/Injury Risk: Absence of Trauma/Injury/Falls Description: Patient will demonstrate the desired outcomes. Outcome: Progressing Goal: Knowledge of risk factors/behavior modification Description: Knowledge of risk factors/behavior modification for fall/injury prevention Outcome: Progressing Problem: Adult Inpatient Plan of Care Goal: Plan of Care Review Outcome: Progressing Goal: Patient-Specific Goal (Individualized) Outcome: Progressing Goal: Absence of Hospital-Acquired Illness or Injury Outcome: Progressing Goal: Optimal Comfort and Wellbeing Outcome: Progressing Goal: Readiness for Transition of Care Outcome: Progressing Problem: Infection Goal: Absence of Infection Signs and Symptoms Outcome: Progressing Problem: Fall Injury Risk Goal: Fall/Trauma/Injury Risk: Absence of Trauma/Injury/Falls Description: Patient will demonstrate the desired outcomes. Outcome: Progressing Goal: Knowledge of risk factors/behavior modification Description: Knowledge of risk factors/behavior modification for fall/injury prevention Outcome: Progressing Problem: Oral Intake Inadequate Goal: Improved Oral Intake Outcome: Progressing Problem: Adult Inpatient Plan of Care Goal: Plan of Care Review Outcome: Progressing Goal: Patient-Specific Goal (Individualized) Outcome: Progressing Goal: Absence of Hospital-Acquired Illness or Injury Outcome: Progressing Goal: Optimal Comfort and Wellbeing Outcome: Progressing Goal: Readiness for Transition of Care Outcome: Progressing Problem: Infection Goal: Absence of Infection Signs and Symptoms Outcome: Progressing Problem: Fall Injury Risk Goal: Fall/Trauma/Injury Risk: Absence of Trauma/Injury/Falls Description: Patient will demonstrate the desired outcomes. Outcome: Progressing Goal: Knowledge of risk factors/behavior modification Description: Knowledge of risk factors/behavior modification for fall/injury prevention Outcome: Progressing Problem: Oral Intake Inadequate Goal: Improved Oral Intake Outcome: Progressing Spoke with both Neurology and ID regarding findings on MRI Lumbar, thoracic, and cervical spine. At this time, patient remains hemodynamically stable without nuchal rigidity and without complaints of HUGHES/ back pain. Neuro intact. At this time, ID is comfortable continuing with current regimen of Daptomycin. Should the patient decompensate over night with onset of new clinical symptoms concerning for meningitis, will plan for transition to IV Vancomycin and Cefepime. Neurology to bedside to assess patient with recommendations for CT chest, abdomen and pelvis. Will evaluate for possible malignant/ infectious sources on imaging. Additionally, Neurology has placed their own orders for LP diagnostic labs and do feel pursuing LP is necessary at this time to determine etiology of abnormal findings to imaging. Per Neurology Differential for these MRI findings would include most likely infectious given her ongoing MRSA bacteremia and history although will evaluate for malignant causes as well with screening scans and will recommend LP. Other possibilities would include leptomeningeal carcinomatosis versus autoimmune conditions like neurosarcoidosis. No evidence of AIDP at this point. Coags ordered for AM and subQ Lovenox held. Consider LP on 01/02-01/03 vs 01/04 with PVAT pending clinical presentation. CHAPITO Souza Problem: Adult Inpatient Plan of Care Goal: Plan of Care Review Outcome: Progressing Goal: Patient-Specific Goal (Individualized) Outcome: Progressing Goal: Absence of Hospital-Acquired Illness or Injury Outcome: Progressing Goal: Optimal Comfort and Wellbeing Outcome: Progressing Goal: Readiness for Transition of Care Outcome: Progressing Problem: Infection Goal: Absence of Infection Signs and Symptoms Outcome: Progressing Problem: Fall Injury Risk Goal: Fall/Trauma/Injury Risk: Absence of Trauma/Injury/Falls Description: Patient will demonstrate the desired outcomes. Outcome: Progressing Goal: Knowledge of risk factors/behavior modification Description: Knowledge of risk factors/behavior modification for fall/injury prevention Outcome: Progressing Problem: Oral Intake Inadequate Goal: Improved Oral Intake Outcome: Progressing Problem: Adult Inpatient Plan of Care Goal: Plan of Care Review Outcome: Progressing Goal: Patient-Specific Goal (Individualized) Outcome: Progressing Goal: Absence of Hospital-Acquired Illness or Injury Outcome: Progressing Goal: Optimal Comfort and Wellbeing Outcome: Progressing Goal: Readiness for Transition of Care Outcome: Progressing Problem: Infection Goal: Absence of Infection Signs and Symptoms Outcome: Progressing Problem: Fall Injury Risk Goal: Fall/Trauma/Injury Risk: Absence of Trauma/Injury/Falls Description: Patient will demonstrate the desired outcomes. Outcome: Progressing Goal: Knowledge of risk factors/behavior modification Description: Knowledge of risk factors/behavior modification for fall/injury prevention Outcome: Progressing Problem: Oral Intake Inadequate Goal: Improved Oral Intake Outcome: Progressing Problem: Adult Inpatient Plan of Care Goal: Plan of Care Review Outcome: Progressing Goal: Patient-Specific Goal (Individualized) Outcome: Progressing Goal: Absence of Hospital-Acquired Illness or Injury Outcome: Progressing Goal: Optimal Comfort and Wellbeing Outcome: Progressing Goal: Readiness for Transition of Care Outcome: Progressing Vital signs completed per protocol. Monitoring intake and output q8h. Assessing pain q4h and medicate prn. Obtaining daily weights. Labs completed per protocol and will report any abnormal values to physician. Plan of care reviewed and updated with patient and patient demonstrates understanding. Problem: Infection Goal: Absence of Infection Signs and Symptoms Outcome: Progressing Hand washing completed when entering and exiting patient s room and before and after glove use. Blood cultures completed as ordered. Daily hygiene offered to patients and linen changed. Assessing skin for any signs of breakdown, irritation, and infection. Problem: Fall Injury Risk Goal: Fall/Trauma/Injury Risk: Absence of Trauma/Injury/Falls Description: Patient will demonstrate the desired outcomes. Outcome: Progressing Goal: Knowledge of risk factors/behavior modification Description: Knowledge of risk factors/behavior modification for fall/injury prevention Outcome: Progressing Patient remains free from injury. Bed in low position and locked. Patient ID band on and verified. Call light in reach and demonstrated use. Nonskid socks worn when out of bed. Fall wheel updated at bedside. Patient encouraged to call for assistance prior to getting out of bed. High fall risk patient not left alone in bathroom. Bed and chair alarms used when appropriate. Problem: Oral Intake Inadequate Goal: Improved Oral Intake Outcome: Progressing Patient given food choices. Patient encouraged to ask for snacks. Assistance provided before, during, and after meals. Assistance given when selecting meals. Nutrition Plan of Care: 1. Diet Order: (recommend add carb controlled to current diet order due to hx DM2.) 2. Oral Supplement: no oral supplements warranted at this time 3. Follow up: monitor for significant weight changes, monitor for GI symptoms, monitor skin integrity, encourage PO intake with goal of 75%, pet care technician to follow Problem: Adult Inpatient Plan of Care Goal: Plan of Care Review Outcome: Progressing Goal: Patient-Specific Goal (Individualized) Outcome: Progressing Goal: Absence of Hospital-Acquired Illness or Injury Outcome: Progressing Goal: Optimal Comfort and Wellbeing Outcome: Progressing Goal: Readiness for Transition of Care Outcome: Progressing Problem: Infection Goal: Absence of Infection Signs and Symptoms Outcome: Progressing Problem: Fall Injury Risk Goal: Fall/Trauma/Injury Risk: Absence of Trauma/Injury/Falls Description: Patient will demonstrate the desired outcomes. Outcome: Progressing Goal: Knowledge of risk factors/behavior modification Description: Knowledge of risk factors/behavior modification for fall/injury prevention Outcome: Progressing Pt transferred to [place] [id number] on bed, with tele and RN escort for post HR extraction. VSS. Side rails up x4. Pt is A&Ox4. Pt is in NAD. Right groin/left chest wound is WNL. Report given to floor RN. CARDIAC EP CONSULT PLAN OF CARE Discussed risks of the high risk extraction with family (son and son's father), explained risks of bleeding, CVA, OK, catastrophic issues requiring emergent surgery and . Family understands risks and are okay to proceed as discussed with patient yesterday. If you have any further questions regarding the care of this patient, please do not hesitate to reach out to our team. Abelino Loyola DO Fellow, Cardiac Electrophysiology [facility] 9:25 AM Report of PIV WITH ULTRASOUND GUIDANCE Consultation and Evaluation: Patient seen and evaluated for PIV insertion using ultrasound guidance. ID band present, allergies and limb precautions verified with patient/nurse. Skin integrity within normal limits at time of insertion. No evidence of ecchymosis, infiltration, hematoma, edema, or any condition that would prevent safe insertion of a PIV [X ] ultrasound used [ ] ultrasound not used Procedure explained to patient. Anatomical distortion to interfere with placement: none PROCEDURE DETAILS: PIV Insertion Procedure Using standard aseptic technique access was obtained. Good blood return noted, catheter flushed easily with 10mls 0.9 NS per lumen. Securement device used to secure PIV. Dressing applied. Pt denies pain at insertion site. Peripheral IV Line - Single Lumen 12/29/24923 forearm, anterior, left 18 gauge;1 1/4 in length (Active) 12/29/24923 Present On Admission : no Guiding Device: ultrasound Lumen 1: Additional Lumens: Lumen 2: Location: forearm, anterior, left Device/Lot Number: [id number] catheter system Gauge/Length: 18 gauge;1 1/4 in length Unsuccessful Insertion Attempts: Unsuccessful Attempt Location/Site: Pain Prevention/Patient Tolerance: Removal: Additional Comments: Lumen 3: Peripheral IV Present on Admission: (Retired/Read Only) Location: (Retired/Read Only) Device: (Retired/Read Only) Gauge/Length: Dip Tanker/Lot Number: Unsuccessful Insertion Attempts: (Retired/Read Only) Unsuccessful Attempt Locations: Pain Prevention: Patient Tolerance: Insertion: Removal Indication: Peripheral IV Location - Orientation: Peripheral IV Location: Insertion Site WDL WDL 12/29/24923 Site Preparation/Maintenance site cleansed: chlorhexidine solution 12/29/24923 Lumen 1 Patency/Maintenance flushed without difficulty;blood return, able to obtain 12/29/24923 Phlebitis 0-->no symptoms 12/29/24923 Infiltration 0-->no symptoms 12/29/24923 Patient tolerated procedure well without any complications [] Lidocaine 1% used prior insertion [x] No Lidocaine used Extra insertion note if applicable: RN notified of procedure completion [ ] Obtained labs. [X] Call light in reach. [X] Bed low and locked. [X] Tray table within reach. Education: Patient/Family informed to notify nurse of any complications including pain, redness, swelling, or leakage post insertion. Problem: Adult Inpatient Plan of Care Goal: Plan of Care Review Outcome: Progressing Goal: Patient-Specific Goal (Individualized) Outcome: Progressing Goal: Absence of Hospital-Acquired Illness or Injury Outcome: Progressing Goal: Optimal Comfort and Wellbeing Outcome: Progressing Goal: Readiness for Transition of Care Outcome: Progressing Problem: Infection Goal: Absence of Infection Signs and Symptoms Outcome: Progressing Problem: Fall Injury Risk Goal: Fall/Trauma/Injury Risk: Absence of Trauma/Injury/Falls Description: Patient will demonstrate the desired outcomes. Outcome: Progressing Goal: Knowledge of risk factors/behavior modification Description: Knowledge of risk factors/behavior modification for fall/injury prevention Outcome: Progressing CARDIAC EP CONSULT PLAN OF CARE Patient to undergo high risk extraction tomorrow with cardiac surgery providing back up. Explained the risks of the procedure including vascular complications requiring emergent intervention, bleeding, infection, CVA, OK and . Patient expressed understanding of the risks and is amenable to proceed. Keep NPO @ MN. If you have any further questions regarding the care of this patient, please do not hesitate to reach out to our team. Abelino Loyola DO Fellow, Cardiac Electrophysiology [facility] Cardiac Surgery Plan of Care Note: We were asked by Dr. Wallace Lugo MD to see Michelle Jules and offer our opinion on the evaluation and treatment of surgical back-up for high lead application architect extraction. The patient is a candidate for high lead application architect extraction with cardiac surgery back-up. Please plan for procedures on Tuesdays unless otherwise arranged with the cardiac surgery attending. Medications: -Please hold BLAIRE inhibitors, ARBs and Calcium Channel blockers at least 48 hrs prior to surgery. - Medication Consideration -- Please double check current medication list against the following PREOPERATIVE MEDICATION RECOMMENDATIONS PRIOR TO CARDIAC SURGERY and also please consider these recommendations in management decisions while waiting for surgery. Plan discussed with Dr. Walker. Thank you. Please call with questions or concerns. ZHENG Durham Cardiac Surgery Consult [place] Phone: [phone] Problem: Adult Inpatient Plan of Care Goal: Plan of Care Review Outcome: Progressing Goal: Patient-Specific Goal (Individualized) Outcome: Progressing Goal: Absence of Hospital-Acquired Illness or Injury Outcome: Progressing Goal: Optimal Comfort and Wellbeing Outcome: Progressing Goal: Readiness for Transition of Care Outcome: Progressing Problem: Infection Goal: Absence of Infection Signs and Symptoms Outcome: Progressing Problem: Fall Injury Risk Goal: Fall/Trauma/Injury Risk: Absence of Trauma/Injury/Falls Description: Patient will demonstrate the desired outcomes. Outcome: Progressing Goal: Knowledge of risk factors/behavior modification Description: Knowledge of risk factors/behavior modification for fall/injury prevention Outcome: Progressing Problem: Adult Inpatient Plan of Care Goal: Plan of Care Review Outcome: Progressing Goal: Patient-Specific Goal (Individualized) Outcome: Progressing Goal: Absence of Hospital-Acquired Illness or Injury Outcome: Progressing Goal: Optimal Comfort and Wellbeing Outcome: Progressing Goal: Readiness for Transition of Care Outcome: Progressing Problem: Infection Goal: Absence of Infection Signs and Symptoms Outcome: Progressing Problem: Fall Injury Risk Goal: Fall/Trauma/Injury Risk: Absence of Trauma/Injury/Falls Description: Patient will demonstrate the desired outcomes. Outcome: Progressing Problem: Adult Inpatient Plan of Care Goal: Plan of Care Review Outcome: Progressing Goal: Patient-Specific Goal (Individualized) Outcome: Progressing Goal: Absence of Hospital-Acquired Illness or Injury Outcome: Progressing Goal: Optimal Comfort and Wellbeing Outcome: Progressing Goal: Readiness for Transition of Care Outcome: Progressing Problem: Infection Goal: Absence of Infection Signs and Symptoms Outcome: Progressing Problem: Fall Injury Risk Goal: Fall/Trauma/Injury Risk: Absence of Trauma/Injury/Falls Description: Patient will demonstrate the desired outcomes. Outcome: Progressing Goal: Knowledge of risk factors/behavior modification Description: Knowledge of risk factors/behavior modification for fall/injury prevention Outcome: Progressing Problem: Adult Inpatient Plan of Care Goal: Plan of Care Review Outcome: Progressing Goal: Patient-Specific Goal (Individualized) Outcome: Progressing Goal: Absence of Hospital-Acquired Illness or Injury Outcome: Progressing Goal: Optimal Comfort and Wellbeing Outcome: Progressing Goal: Readiness for Transition of Care Outcome: Progressing Problem: Infection Goal: Absence of Infection Signs and Symptoms Outcome: Progressing Problem: Fall Injury Risk Goal: Fall/Trauma/Injury Risk: Absence of Trauma/Injury/Falls Description: Patient will demonstrate the desired outcomes. Outcome: Progressing Goal: Knowledge of risk factors/behavior modification Description: Knowledge of risk factors/behavior modification for fall/injury prevention Outcome: Progressing Problem: Adult Inpatient Plan of Care Goal: Plan of Care Review Outcome: Progressing Goal: Patient-Specific Goal (Individualized) Outcome: Progressing Goal: Absence of Hospital-Acquired Illness or Injury Outcome: Progressing Goal: Optimal Comfort and Wellbeing Outcome: Progressing Goal: Readiness for Transition of Care Outcome: Progressing Problem: Infection Goal: Absence of Infection Signs and Symptoms Outcome: Progressing Problem: Fall Injury Risk Goal: Fall/Trauma/Injury Risk: Absence of Trauma/Injury/Falls Description: Patient will demonstrate the desired outcomes. Outcome: Progressing Summary: Admission note/Skin assessment Patient admitted to [facility] for bacteremia/concern for pacer infection. Patient orientation: person, place, and time Vital Signs obtained. Patient on telemetry: yes Orders reviewed. Labs and ECG obtained. Vpaced on telemetry Admitting provider, Liliana Syed NP, notified of patient arrival. Admissions questions asked and completed to the best ability of the patient at this time. Discussed with patient and family (if applicable) that it is in the best interest of patients to remain in their area of care while in the hospital. By patients staying on the nursing unit/area of care, the hospital staff s ability to promote the safety of the patient, and to proceed with treatment plans without unexpected delays or interruptions is enhanced. Fall Prevention Documentation: Fall Risk Assessed: Yes Patient Specific Interventions in place: Yes Patient Education provided :By virtue of being ill and hospitalized ALL patient are at risk of falling.and on the importance to Call not Fall: Yes Family at bedside educated on importance to call for assistance before getting patient out of bed: N/A Patient/Family verbalizes understanding, patient safety is our top priority. Skin Assessment: On admission to , from outside facility ([facility]) a dual RN initial assessment of skin condition was performed by Keegan Martinez, [place] and Joann Castro RN. Skin within defined limits:Yes Admission info: Ana with known blood infection went to her local medical hospital after her PICC stopped working as needed. Temp was 102F. Concern for pacer involvement was indicated>patient wanted to have this treated at [facility] (where she got the pacer in the first place). PMHx: Pacer 2014, CMP, LV systolic dysfunction, PHTN. On arrival, 2/3 of a bag of vancomycin appears to have been infused (tubing was still connected, but was not running). Patient on RA oxygenation, and was seen as Vpaced on telemetry. documented in this encounter [facility] 01-04-2025 Procedure note Associated Ord er(s): Lumbar Puncture Post-Procedure Diagnose(s): Infection Lumbar Puncture Procedure Start: 12:54 EDT Performed by: CHAPITO Hardin Authorized by: CHAPITO Hardin Location of procedure: Bedside Room number: 6028 Name of Biomedical Engineering Supervisor: Tania Acosta PA-C [place] Protocol Verbal consent obtained Written consent obtained Risks and benefits were discussed. Consent given by: patient The patient states understanding of procedure being performed. The patient's understanding of the procedure matches consent given Procedure consent matches procedure scheduled Relevant documents present and verified: Yes Test results available and properly labeled: Yes Site marked: Yes Imaging studies available: Yes Required blood products, implants, devices, and special equipment available Patient identity confirmed: verbally with patient, arm band and hospital-assigned identification number Immediately prior to procedure a time out was called to verify the correct patient, procedure, equipment, it support manager and site/side marked as required Anesthesia Local anesthesia used: yes Local: 1% Lidocaine Sedation Patient not sedated Procedure stop date: 01/04/2025 Procedure Details Preparation: Patient was prepped and draped in the usual sterile fashion. Lumbar space: L3-L4 interspace (L4-5 attempted unsuccessfully) Patient's position: right lateral decubitus Needle gauge: 20 Needle type: spinal needle - Quincke tip Needle length: 3.5 in Number of attempts: 2 Opening pressure: 22 cm H2O Fluid appearance: clear Tubes of fluid: 4 Total volume: 15 ml Post-procedure: site cleaned and adhesive bandage applied Patient tolerance: patient tolerated the procedure well with no immediate complications documented in this encounter [facility] 12-28-2024 Note [facility] 12-23-2024 History and physical note Heart Failure 2/Advanced Heart Failure HISTORY AND PHYSICAL IDENTIFYING INFORMATION PATIENT: Michelle Jules ADMIT DATE: 12/23/2024 TIME OF EVALUATION: 12/24/2024 12:58 AM HISTORIAN: patient and transfer medical records Plan of Care: - continue vancomycin 2000 mg q 12 hours - ID consult - TTE to rule out vegetation/evaluate LV function - consider KANDY - consider EP consult pending above 60 min spent with patient, reviewing pertinent information, and discussing plan of care with the multidisciplinary team. CHIEF COMPLAINT infection HISTORY OF PRESENT ILLNESS Michelle Jules is a 59 y.o. female with a PMH significant for ICM/HFrEF, s/p ICD, HTN, HLD, Type II DM with chronic neuropathy, obesity, gout, RLS, allergic rhinitis and recent MRSA bacteremia on vacomycin who presented to the [facility] ED on 12/20/24 with c/o recurrent fevers, N/V and lumbar back pain. Tm 102.1. She had been receiving vancomycin via PICC line (EOT 01/02) but the last couple days she was having trouble with the line and did not receive some doses of her antibiotic. ID was consulted there and blood cultures from 12/20 revealed MRSA. Her vancomycin was continued. She was transferred for consideration of device lead extraction. HEART FAILURE HISTORY Primary HF Physician [facility] Etiology of HF NICM Home GDMT Coreg, aldactone, entresto Dry Weight Last Admission 11/2024 Last Ischemic Eval unkown PCP Kaitlyn Hall Last Echo/MRI 11/2024 Device 1 RESISTOR INSPECTOR-D PAST MEDICAL, SURGICAL, FAMILY, and SOCIAL HISTORY Past Medical History: Diagnosis Date Biventricular ICD (implantable cardiac defibrillator) in place Bundle branch block, left Chest pain, unspecified CHF (congestive heart failure) Diabetes mellitus Dilated cardiomyopathy Edema Hyperlipidemia Hypertension Hypertension Left ventricular systolic dysfunction PAXTON (obstructive sleep apnea) no cpap Pulmonary hypertension SOB (shortness of breath) Past Surgical History: Procedure Laterality Date ICD PLACEMENT N/A 09/03/2013 Laterality: N/A; Surgeon: Christopher Chakraborty MD; Location: [facility] CARDIAC VEIN ELECTRODE PLACEMENT FOR LV PACING N/A 09/03/2013 Laterality: N/A; Surgeon: Christopher Chakraborty MD; Location: [facility] CARDIAC CATH (OUTSIDE) 04/22/13 [facility] ECHOCARDIOGRAM (OUTSIDE) 04/20/13 [facility] STRESS TEST (OUTSIDE) 04/19/13 [facility] HYSTERECTOMY TOTAL ABDOMINAL OPEN (MARCELO) 2006 ARTHROSCOPY KNEE Right 1989 APPENDECTOMY TONSILLECTOMY Family History Problem Relation Age of Onset Diabetes Mother Heart Disease - Other Mother 4 stents Myocardial Infarction Father massive mi at 55 years Social History Socioeconomic History Marital status: Tobacco Use Smoking status: Never Substance and Sexual Activity Alcohol use: No Drug use: No Social Drivers of Health Financial Resource Strain: Medium Risk (04/05/2023) Received from [facility] Overall Financial Resource Strain (CARDIA) Difficulty of Paying Living Expenses: Somewhat hard Food Insecurity: Food Insecurity Present (04/05/2023) Received from [facility] Hunger Vital Sign Worried About Running Out of Food in the Last Year: Sometimes true Ran Out of Food in the Last Year: Sometimes true Transportation Needs: No Transportation Needs (04/05/2023) Received from [facility] PRAPARE - Transportation Lack of Transportation (Medical): No Lack of Transportation (Non-Medical): No Physical Activity: Insufficiently Active (04/05/2023) Received from [facility] Exercise Vital Sign Days of Exercise per Week: 7 days Minutes of Exercise per Session: 20 min Stress: Stress Concern Present (04/05/2023) Received from [facility] [place] [employer] - Occupational Stress Questionnaire Feeling of Stress : To some extent Social Connections: Socially Isolated (04/05/2023) Received from [facility] Social Connection and Isolation Panel [NHANES] Frequency of Communication with Friends and Family: More than three times a week Frequency of Social Gatherings with Friends and Family: Twice a week Attends Sabianism Services: Never Active Member of Clubs or Organizations: No Attends Club or Organization Meetings: Never Marital Status: Housing Stability: Low Risk (04/05/2023) Received from [facility] Housing Stability Vital Sign Unable to Pay for Housing in the Last Year: No Number of Places Lived in the Last Year: 1 Unstable Housing in the Last Year: No MEDICATIONS Cannot display prior to admission medications because the patient has not been admitted in this contact. I have personally reviewed the medication list, verified it, and updated it via the Medication Reconciliation Navigator: [ X ]Verbally with the patient []With the patient's personal medication list []Verbally with the patient's family member []Verbally with the facility's MAR []With the patient's Pharmacy ALLERGIES: She is allergic to latex, metformin, simvastatin, and tape [*adhesive tape]. REVIEW OF SYSTEMS Review of Systems Review of Systems Constitutional: Positive for chills, decreased appetite, fever, malaise/fatigue and weight gain. HENT: Negative. Eyes: Previous cataract removal bilaterally Cardiovascular: Positive for dyspnea on exertion and palpitations. Negative for chest pain, irregular heartbeat, leg swelling, near-syncope, orthopnea, paroxysmal nocturnal dyspnea and syncope. Respiratory: Positive for sleep disturbances due to breathing (does not use CPAP feels like I'm going to be smothered). Skin: Negative. Musculoskeletal: Positive for arthritis (knees, shoulders and back), back pain, falls (in November no LOC) and gout. Negative for joint pain, joint swelling, muscle cramps, muscle weakness, myalgias, neck pain and stiffness. Restless leg syndrome Gastrointestinal: Positive for abdominal pain, constipation and nausea. Negative for bloating, hematemesis, hematochezia, melena and vomiting. Genitourinary: Negative. Neurological: Positive for headaches. Psychiatric/Behavioral: Positive for depression. Negative for substance abuse and suicidal ideas. The patient is nervous/anxious. PHYSICAL EXAM Temp: [97.9 F (36.6 C)] Pulse (Heart Rate): [57-74] BP: (151)/(73) Resp Rate: [19] O2 Sat (%): [95 %] MEWS Score (AutoCalculated): [0-1] Body mass index is 38.65 kg/m . Physical Exam Constitutional: She appears chronically ill. Neck: No JVD present. Cardiovascular: Normal rate, regular rhythm, S1 normal and S2 normal. Pulses: Radial pulses are 2+ on the right side and 2+ on the left side. Warm and dry Pulmonary/Chest: Effort normal and breath sounds normal. She has no wheezes. She has no rales. She exhibits no tenderness. Abdominal: Soft. Bowel sounds are normal. She exhibits no distension. There is abdominal tenderness (suprapubic). Musculoskeletal: General: No edema. Cervical back: Normal range of motion and neck supple. Neurological: She is alert and oriented to person, place, and time. Skin: Skin is warm and dry. LABS AND IMAGING All recent labs and imaging personally review: No results found for: LDH Recent Labs 12/23/24 2342 WBC 5.27 HGB 10.6* HCT 33.5* PLATELET 129* SODIUM 138 POTASSIUM 3.9 CHLORIDE 105 CO2 26 BUN 8 CREATSERUM 0.71 GLUCOSE 216* CALCIUM 8.7 MAGNESIUM 1.9 PHOSPHORUS 3.1 Lab Results Component Value Date NTERMINALPRO 395 (H) 12/23/2024 Reference Ranges for ProBNP: Normal - rules out CHF Age < 75 - ProBNP < 125 Age > 75 - ProBNP < 450 Positive - rules in CHF Age < 50 - ProBNP >450 Age 50-75 - ProBNP >900 Age > 75 - Pro BNP >1800 No results found for: HSTROP Imaging XR CHEST 1 VIEW PORTABLE ECHOCARDIOGRAM (Results Pending) Last Echo: Results for orders placed during the hospital encounter of 01/28/14 ECHOCARDIOGRAM 01/28/2014 (Final) Narrative Patient: Michelle Jules [facility] Rec#: [id number] : 1965 Date: 01/28/2014 Age: 48 Height: 175.3 cm / 68.4 in Weight: 80.54 kg / 177.2 lbs Sex: F BSA: 1.96 Room#: [facility] Reading: Diamond Odell M.D. Backend Developer: ROBERTO Cutler, [facility] Rhythm: NSR HR: 71 __ Transthoracic Echocardiogram Conclusions 1. Normal left ventricular size with mod-severely reduced systolic function, LVEF 25-30%. 2. Normal right ventricular size with mild-mod reduced systolic function. 3. Wire in RA/RV. 4. No significant valvular heart disease. 5. Compared to the study from 07/2013 there has been mild improvement in systolic function. Indication - Procedure: Study indication: cardiomyopathy. Definity was used to optimize border definition. Contrast was used because 2 or more contiguous left ventricular segments were not visualized. Contrast was used in this procedure. Indication: Cardiomyopathy Findings L Ventricle: The left ventricular chamber size is normal. There is diffuse global hypokinesis. The estimated ejection fraction is 25-30%, consistent with severe systolic dysfunction. There is an E to A reversal in the mitral valve flow pattern suggestive of diastolic dysfunction. R Ventricle: The right ventricular cavity size is normal. a device wire is visualized in the RV. The right ventricular global systolic function is normal. L Atrium: The left atrial chamber size is normal. R Atrium: The right atrial cavity size is normal. Mitral V: Mitral valve leaflet mobility appears normal. There is a trace of mitral regurgitation. There is no evidence of mitral stenosis. Aortic V: The aortic valve structure is normal. There is no evidence of aortic regurgitation. There is no evidence of aortic stenosis. Tricuspid V: The tricuspid valve leaflets are normal. There is mild tricuspid regurgitation. There is no tricuspid stenosis. Pulmonic V: The pulmonic valve appears normal. There is no significant regurgitation. There is no pulmonic stenosis. Aorta: The aortic root dimension is normal. Pulmonic A: The pulmonary artery appears normal. Pericardium: The pericardium appears normal. Venous: The inferior vena cava appears normal. Last Ischemic Eval: unknown Last Right Heart Cath: unknown Pertinent Diagnosis MRSA bacteremia with sepsis 11/2024 TTE with no evidence of vegitation Discharged on vancomycin with EOT 01/02/25 PICC line was not functioning and patient only received 1/2 dose the day [employer]IN[employer] DEVELOPER and none on the day of admission Admitted to OSH on 12/20 with N/V, fever and lumbar back pain. Concern for line infection vs pacer related endocarditis vs lumbar infection KANDY ordered but not done ID was consulted BC x 2from 12/20 positive for MRSA A 3rd cultures prelim staph aureus Current vancomycin dose 2000 mg q 12 hours Plan: Consult ID Continue vancomycin Repeat blood cultures Repeat TTE Consider KANDY Consider EP consult for consideration of device lead extraction Lab Results Component Value Date WBC 5.27 12/23/2024 WBC 5.8 10/05/2013 WBC 7.1 09/04/2013 Lumbar spine pain-improved Has chronic lumbar pain 2/2 arthritis Pain was worse on admission CT showed severe degenerative disease ICD is not MRI compatable Chronic systolic heart failure (HFrEF) / non-ischemic cardiomyopathy NYHA class II, ACC/AHA C EF unknown, LVIDD: unknown Lab Results Component Value Date NTERMINALPRO 395 (H) 12/23/2024 Date of Diagnosis: Diuresis: none Beta blockade: coreg 25 mg bid ACEi / ARB / ARNI: entresto 24/26 mg bid MRA: aldactone 25 mg daily SGLT2i: none Vasodilator: Inotrope: ICD / RESISTOR INSPECTOR: RESISTOR INSPECTOR-D Heart Failure Research Opportunities Heart Healthy diet with 4 gram Na, 2L fluid restriction Weigh daily Strict I/O Plan: Continue home meds Repeat echo Hyperlipidemia Continue Atorvastatin 10 mg Lab Results Component Value Date LDLCALC 70 12/23/2024 Hypertension BP Readings from Last 3 Encounters: 12/23/24 151/73 01/28/14 100/57 10/05/13 118/74 Renal function Lab Results Component Value Date CREATSERUM 0.71 12/23/2024 CREATSERUM 0.85 10/05/2013 CREATSERUM 0.71 09/04/2013 Lab Results Component Value Date GFR >90 12/23/2024 GFR >60 10/05/2013 GFR >60 10/05/2013 Estimated Creatinine Clearance: 119 mL/min (by C-G formula based on SCr of 0.71 mg/dL). Electrolyte Monitoring - Maintain K>4, Mg>2 Replete prn - Na SODIUM Date Value Ref Range Status 10/05/2013 137 133 - 143 mmol/L Final 09/04/2013 135 133 - 143 mmol/L Final Sodium Date Value Ref Range Status 12/23/2024 138 135 - 145 mmol/L Final - K+ Lab Results Component Value Date POTASSIUM 3.9 12/23/2024 POTASSIUM 4.3 10/05/2013 POTASSIUM 4.0 09/04/2013 - Cl Lab Results Component Value Date CHLORIDE 105 12/23/2024 CHLORIDE 104 10/05/2013 CHLORIDE 103 09/04/2013 - Mg Lab Results Component Value Date MAGNESIUM 1.9 12/23/2024 MAGNESIUM 2.2 10/05/2013 MAGNESIUM 1.9 09/04/2013 Anemia of chronic diseases secondary to HF Check iron studies Lab Results Component Value Date HGB 10.6 (L) 12/23/2024 HGB 12.4 10/05/2013 HGB 11.8 09/04/2013 No acute indications for transfusions. Diabetes Mellitus, Type 2 On home glargine 40 units bid plus sliding scale with weekly trulicity No results found for: HGBA1C Class II Obesity (Body mass index is 38.65 kg/m .; Class I= 30-34.9, Class II= 35-39.9, Class III= > 40; <19, consider cardiac cachexia) Patient given education regarding Lifestyle Modification Secondary to Excess Caloric intake and decreased Caloric Expenditure Thyroid Evaluation Lab Results Component Value Date TSH 1.397 12/23/2024 Activity: Cardiac rehab Complexity. Thrombocytopenia - Continue to monitor. Obesity, Class II Body mass index is 38.65 kg/m . - Follow with PCP for dietary and lifestyle modifications. Wound Documentation Any conditions listed below are present on admission unless otherwise specified. . Code Status: Full Code Access: Patient Lines/Drains/Airways Status Active Lines, Drains, Airways, & Wound Overview Name Placement date Placement time Site Days Wound 09/03/13 141 Left upper chest 09/03/13 1415 -- 4129 Diet: DIET HEART HEALTHY - 4 GM SODIUM Fluid Restriction 2000mL (1000mL Nursing, 1000mL Nutrition) DVT Prophylaxis: lovenox Dispo: home Discussed with team on rounds. This plan will be discussed with Dr. Wallace Lugo MD, the attending needle control cheniller. CHAPITO Angel HF2/Advanced Heart Failure Phone: [phone] Cosigned by Wallace Lugo MD at 12/25/2024 7:54 AM EDT Associated attestation - Wallace Lugo MD - 12/25/2024 7:54 AM EDT HF 2 Attending Attestation: I saw and personally examined this patient on 12/24/2024 during inpatient rounds with the HF MIRACLE on the HF2 service. I provided a substantive portion of care for this patient. I personally reviewed and interpreted test results and I have performed all aspects of the medical decision making for this encounter. I have reviewed and verified this documentation and it accurately reflects our care. 59 yo female with hx of cardiomyopathy, ASCVD, HFimpEF (last LVEF in 2022 was NL at [facility]), and ppICD. She was recently evluated at [facility] ED for recurrent fevers, N/V, low back pain, Temp as high as 102. She had received vancomycin thru PICC - but has been sporadic recently due to line issues. Blood Cx from 12/20 pos for MRSA. She is referred to [facility] for evaluation and concern for device infection. From a HF perspective she has been very stable and no recent HF hospitalizations. As noted, she has had normalization of LVEF per most recent echo at [facility]. Plan: - Same HF meds - I.D. consult - EP consult - will likely require KANDY, as well as imaging of spine. - if device extracted for infection, may not need replaced since recovered LV fxn. Wallace Lugo M.D. chef de froid Advanced Heart Failure Program Division of Cardiovascular Medicine [facility] [email or web address] ph [phone] fax [phone] documented in this encounter [facility] 12-23-2024 Progress note Note Date/Time December 23, 2024 1:26 pm [facility] Medical Records Department [address] [place] [id number] Progress Note - Infect Disease 12/23/24 1325 MR#: [id number] Acct: [id number] Name: MICHELLE JULES Rep #:[id number] : 1965 59 From: Michel olivarez MD PCP: Dr. Lisseth Peñaloza MD Status:ADM IN Location: [place] [address] Physical Exam Narrative Feeling ok, no fever, minimal back pain. No other pain in joints. Const alert and no apparent distress General Appearance: cooperative Resp normal air movement and clear to auscultation bilaterally Cardio regular rate and regular rhythm GI soft to palpation, non-tender and non-distended Skin no rashes or lesions noted ID ID: Route of nutrition/ use of supplements: [] Nutritional Intake: [] IV Site: [] Berger Catheter: [] Assessment & Plan Assessment/Plan (1) MRSA bacteremia: PLAN: Now with recurrent MRSA bacteremia and picc malfunction. Had been admitted 11/2024 with sepsis due to MRSA bacteremia, suspected source recent fall with scrape to L elbow. KANDY reportedly showed no veg. Repeat bcx ngtd. Having point tenderness over L spine. Noncontrast lumbar CT showed only severe degenerative disease, and she reports her pacer-ICD is not MRI compatible. Discharged with picc and 6 weeks iv vanc stop date 01/02/25. Concern for line infection vs pacer-related endocarditis vs worsening lumbar infection. Picc is now out. Will repeat bcx and ordered KANDY. Cont vanc. May need transfer for device removal. Vanc ABBEY is 1. Will follow 12/23/24 1326 <Electronically signed by Michel Haq MD> Cosigner Signature (if applicable): CC: ~ Signed [facility] Work Phone: 1(176) 371-837506-10-2025 Progress note Author Josie Rivera [facility] Note Date/Time December 22, 2024 8:31 pm [facility] Medical Records Department [address] [place] [address] Progress Note - Hospitalist 12/22/241938 MR#: [id number] Acct: [id number] Name: MICHELLE JULES Rep #:[id number] : 1965 59 From: Josie Rivera DO PCP: Dr. Lisseth Peñaloza MD Status:ADM IN Location: [place] [address] Reason for Visit Reason for Visit: Diagnoses Methicillin resistant Staphylococcus aureus infection as the cause of diseases classified elsewhere (12/20/24) Bacteremia (12/20/24) Personal history of other specified conditions (12/20/24) Subjective Subjective Patient was seen and examined today, I received word from cardiology who stated they did not want her to have a KANDY and they requested that I transfer the patient to another facility for removal of her pacemaker lead. I asked the patient what institution she would like to go to and she confirmed it was [facility] which takes her insurance, I called [facility] and a bed was not available today and they will keep her on a waiting list. Objective Data Objective Data Vital Signs: Vital Signs Temp Pulse Resp BP Pulse Ox O2 Del Method O2 Flow Rate 97.9 F 81 16 114/59 L 98 Room Air 2 12/22/24 16:54 12/22/24 16:54 12/22/24 16:54 12/22/24 16:54 12/22/24 16:54 12/22/24 18:00 12/22/24 04:00 Oxygen Flow Rate (L/min) 2 Oxygen Delivery Method Room Air Weight: 118.8 kg Body Mass Index (BMI) 38.7 Intake & Output: Intake and Output for Last 24 Hours 12/20/24 12/21/24 12/22/24 23:59 23:59 23:59 Intake Total 2635 / 2855 3120 / 3120 980 / 980 Output Total 0 / 0 Balance 2635 / 2855 3120 / 3120 980 / 980 Lab / Micro Data 12/22/24 07:19 12/22/24 07:19 Labs: Laboratory Results - last 24 hr 12/22/24 07:19: WBC 7.1, RBC 3.63 L, Hgb 10.5 L, Hct 32.5 L, MCV 89.5, MCH 28.9,MCHC 32.3, RDW Std Deviation 47.6 H, RDW Coeff of [place]atum 14.6, Plt Count 113 L, MPV10.0, Immature Gran % (Auto) 0.400, Neut % (Auto) 65.6, Lymph % (Auto) 19.1, [place] % (Auto) 10.5 H, Eos % (Auto) 3.7, Baso % (Auto) 0.7, Absolute Neuts (auto) 4.7, Absolute Lymphs (auto) 1.36, Nucleated RBC % 0, Sodium 140, Potassium 4.4, Chloride 108, Carbon Dioxide 24.2, Anion Gap 7, BUN 11, Creatinine 0.83, Estim Creat Clear Calc 101.75, Est GFR (MDRD) Non-Af 82, BUN/Creatinine Ratio 13.0, Glucose 136 H, Hemoglobin A1c 11.5 H, Calcium 8.8, Vancomycin Trough 18.8 H Micro: Microbiology 12/21/24 12:45 Incision/Surgical Site Gram Stain - Final 12/20/24 19:35 Blood Culture (Wb) - Left Hand Blood Culture - Preliminary Staphylococcus aureus 12/20/24 18:40 Blood Culture (Wb) - Anticubital Right Bacteria Detection (PCR) - Final Meth. resistant Staph. aureus 12/20/24 18:40 Blood Culture (Wb) - Anticubital Right Blood Culture - Preliminary Staphylococcus aureus Rhythm Strip Rhythm Strip: Sinus Tach Rate: 125 Ectopy: None Physical Exam Narrative alert, oriented x3 and no apparent distress Constitutional Narrative: Patient appears older than her stated age General Appearance: cooperative, well kempt and well developed Orientation / Consciousness: awake, oriented to person, oriented to place and oriented to time HEENT normocephalic, head/scalp atraumatic and moist oral mucous membranes Eyes PERRL, EOMs intact bilaterally and conjunctivae normal Neck supple, no JVD, thyroid normal and no carotid bruits General: trachea midline Resp normal respiratory effort, no retractions, no use of accessory muscles and clearto auscultation bilaterally Auscultation: Negative for rales, rhonchi or wheezes Cardio regular rate, regular rhythm, S1 normal heart sound, S2 normal heart sound, no murmurs, no rub and no gallops GI normal to inspection, nondistended, normoactive bowel sounds, soft to palpation,non-tender and non-distended Extremity no clubbing, cyanosis or edema Skin no rashes or lesions noted General Skin Exam: no breakdown Neuro oriented x3, CN's II-XII intact bilaterally, no focal motor deficits and no sensory deficits noted Sensorium / Orientation: awake and alert Speech: speech normal Psych Psych Narrative: Patient appears to have slowed thought processes and respond slowly to some questions. Assessment & Plan Assessment/Plan (1) Hx of bacteremia: PLAN: Plan 1. Continued bacteremia secondary to MRSA-infectious diseases is now participating in her care and adjusting her antibiotics. Patient's PICC line was removed due to the fact that it was nonfunctional. Patient is on a waitinglist to go to [facility] for pacemaker lead removal, she will need further care for herbacteremia there. #2 failure of outpatient antibiotic treatment-exact etiology unclear possibly secondary to patient's inability to administer self antibiotics. #3 type 2 diabetes-blood sugars will be monitored, sliding scale insulin will beadministered as indicated #4 neuropathy secondary to type 2 diabetes-patient is on gabapentin #5 essential hypertension-patient is on carvedilol #6 hyperlipidemia-patient is on Lipitor Total clinical time spent addressing the patient's medical issues, reviewing allof her data, and collaborating with patient's care team: 35 minutes Charges/Coding Visit Charges Inpatient E&M: 61648 Subs Hosp L2 12/22/242030 <Electronically signed by Josie Rivera DO> Cosigner Signature (if applicable): CC: ~ Signed [facility] Work Phone: 1(716) 856-204806-10-2025 Progress note Author Michel Haq [facility] Note Date/Time December 22, 2024 10:1 9am [facility] Medical Records Department [address] [place] [address] Progress Note - Infect Disease 12/22/24 1018 MR#: [id number] Acct: [id number] Name: MICHELLE JULES Rep #:[id number] : 1965 59 From: Michel olivarez MD PCP: Dr. Lisseth Peñaloza MD Status:ADM IN Location: [place] [address] Physical Exam Narrative Feeling about the same, no fever, no n/v/d. No new joint pain. Const alert and no apparent distress General Appearance: cooperative Resp normal air movement and clear to auscultation bilaterally Cardio regular rate and regular rhythm GI soft to palpation, non-tender and non-distended Skin no rashes or lesions noted ID ID: Route of nutrition/ use of supplements: [] Nutritional Intake: [] IV Site: [] Berger Catheter: [] Assessment & Plan Assessment/Plan (1) MRSA bacteremia: PLAN: Now with recurrent MRSA bacteremia and picc malfunction. Had been admitted 11/2024 with sepsis due to MRSA bacteremia, suspected source recent fall with scrape to L elbow. KANDY reportedly showed no veg. Repeat bcx ngtd. Having point tenderness over L spine. Noncontrast lumbar CT showed only severe degenerative disease, and she reports her pacer-ICD is not MRI compatible. Discharged with picc and 6 weeks iv vanc stop date 01/02/25. Concern for line infection vs pacer-related endocarditis vs worsening lumbar infection. Picc is now out. Will repeat bcx and ordered KANDY. Cont vanc. May need transfer for device removal. D/w primary team. Will follow 12/22/24 1019 <Electronically signed by Michel Haq MD> Cosigner Signature (if applicable): CC: ~ Signed [facility] Work Phone: [phone] Consult note Author Cassy Gibson [facility] Note Date/Time December 22, 2024 8:35 am [facility] Medical Records Department [address] [place] [address] Pharmacokinetic/Renal -Consult 12/22/24 0832 MR#: [id number] Acct: [id number] Name: MICHELLE JULES Rep #:[id number] : 1965 59 From: Cassy Gibson PCP: Dr. Lisseth Peñaloza MD Status:ADM IN Y Location: [place] [address] Consult Antibiotic Management Pharmacy has been consulted to manage selected antibiotic: Vancomycin Type of Intervention Type of Consult: Follow-up Labs Labs: Sodium 140 mmol/L (133-145) 12/22/24 07:19 Potassium 4.4 mmol/L (3.3-5.1) 12/22/24 07:19 Chloride 108 mmol/L (98-108) 12/22/24 07:19 Carbon Dioxide 24.2 mmol/L (21.0-32.0) 12/22/24 07:19 Anion Gap 7 (5-15) 12/22/24 07:19 BUN 11 mg/dL (4-19) 12/22/24 07:19 Creatinine 0.83 mg/dL (0.70-1.20) 12/22/24 07:19 Est GFR (MDRD) Non-Af 82 (>60) 12/22/24 07:19 BUN/Creatinine Ratio 13.0 RATIO (10-20) 12/22/24 07:19 Glucose 136 mg/dL (70-99) H 12/22/24 07:19 Vancomycin Trough 18.8 ug/mL (5.0-15.0) H 12/22/24 07:19 Random Vancomycin < 4.0 ug/mL (0.0-15.0) 12/20/24 18:40 Microbiology Microbiology: Microbiology 12/20/24 19:35 Blood Culture (Wb) - Left Hand Blood Culture - Preliminary Staphylococcus aureus 12/20/24 18:40 Blood Culture (Wb) - Anticubital Right Bacteria Detection (PCR) - Final Meth. resistant Staph. aureus 12/20/24 18:40 Blood Culture (Wb) - Anticubital Right Blood Culture - Preliminary Staphylococcus aureus Goal Trough Goal Trough: 15-20 mcg/mL Pharmacy Plan for Drug Dosing Pharmacy Plan for Drug Dosing: VANCOMYCIN LEVEL RECEIVED Current Vancomycin Dose: 2000mg IV Q12hr Number of Doses Received: 3 (ED dose + 2 scheduled) Vancomycin Level: 18.8 Hours Since Last Dose: 11hr Renal Function: 0.83 Renal Function Trend: stable Lab/Micro: BCx (+) MRSA Vancomycin Plan/Comments: Patient had a trough drawn which resulted in a value of 18.8 (goal 15-20). Patient's trough is within goal range, will continue current dosing and recheck a trough in 2 days per protocol Pending Level: 12/24/24 @0730 Pharmacy Service will continue to monitor and adjust dosing as required. 12/22/24 0835 <Electronically signed by Cassy Gibson > Date _ Cassy Gibson Cosigner Signature (if applicable): Date CC: ~ Signed [facility] Work Phone: 1(871) 704-951306-09-2025 Progress note Author [facility] Note Date/Time December 21, 2024 7:37p [facility] Medical Records Department [address] [place] [address] Progress Note - Hospitalist 12/21/241930 MR#: [id number] Acct: [id number] Name: MICHELLE JULES Rep #:[id number] : 1965 59 From: Josie Rivera DO PCP: Dr. Lisseth Peñaloza MD Status:ADM IN Location: [place] [address] Reason for Visit Reason for Visit: Diagnoses Methicillin resistant Staphylococcus aureus infection as the cause of diseases classified elsewhere (12/20/24) Bacteremia (12/20/24) Subjective Subjective Patient was seen and examined today, there was some discussion that the patient was wanting to go to an extended care facility due to her being uncomfortable administering her own antibiotics at home, patient denied this to this examiner but subsequently told case management that she wanted to go to an extended care facility. I talked with infectious diseases about her care today, they recommended not replacing her PICC line presently. Objective Data Objective Data Vital Signs: Vital Signs Temp Pulse Resp BP Pulse Ox O2 Del Method O2 Flow Rate 97.7 F L 66 16 106/59 L 92 Room Air 2 12/21/24 18:01 12/21/24 18:01 12/21/24 18:01 12/21/24 18:01 12/21/24 18:01 12/21/24 18:01 12/21/24 10:16 Oxygen Flow Rate (L/min) 2 Oxygen Delivery Method Room Air Weight: 116.3 kg Body Mass Index (BMI) 37.8 Intake & Output: Intake and Output for Last 24 Hours 12/19/24 12/20/24 12/21/24 23:59 23:59 23:59 Intake Total 2635 / 2855 2580 / 2580 Output Total 0 / 0 Balance 2635 / 2855 2580 / 2580 Lab / Micro Data 12/21/24 07:13 12/21/24 07:13 Labs: Laboratory Results - last 24 hr 12/20/24 18:40: Lactic Acid 2.3 H*, C-React Prot Ext Range 25.40 H 12/20/24 19:47: Urine Color Yellow, Urine Clarity Sl. Cloudy, Urine pH 6.5, Ur Specific [place] 1.015, Urine Protein 15 H, Urine Glucose (UA) 1000 H, Urine Ketones Negative, Urine Occult Blood 10 H, Urine Nitrite Negative, Urine Bilirubin Negative, Urine Urobilinogen Normal, Ur Leukocyte Esterase Negative, Urine RBC 0-5 SEEN, Urine WBC 0-5 SEEN, Ur Squamous Epith Cells 0-5 SEEN, Urine Bacteria 0 SEEN, Urine Mucus 0 SEEN 12/20/24 21:15: ESR 7 12/20/24 22:04: POC Glucose 315 H 12/20/24 23:10: Lactic Acid 1.8 12/21/24 05:42: POC Glucose 248 H 12/21/24 07:13: WBC 10.3, RBC 3.76 L, Hgb 11.1 L, Hct 33.3 L, MCV 88.6, MCH 29.5, MCHC 33.3, RDW Std Deviation 47.0 H, RDW Coeff of Tatum 14.6, Plt Count 115 L, MPV 10.0, Immature Gran % (Auto) 0.400, Neut % (Auto) 78.8 H, Lymph % (Auto) 12.6 L, [place] % (Auto) 7.6, Eos % (Auto) 0.1, Baso % (Auto) 0.5, Absolute Neuts (auto) 8.1 H, Absolute Lymphs (auto) 1.29, Nucleated RBC % 0, Sodium 135, Potassium 3.9, Chloride 104, Carbon Dioxide 22.0, Anion Gap 9, BUN 14, Creatinine 0.83, Estim Creat Clear Calc 100.58, Est GFR (MDRD) Non-Af 81, BUN/Creatinine Ratio 16.9, Glucose 253 H, Calcium 8.4, Total Bilirubin 0.45, AST17, ALT 17, Alkaline Phosphatase 141 H, Total Protein 6.1, Albumin 3.2 L, Globulin 2.9, Albumin/Globulin Ratio 1.1 Micro: Microbiology 12/20/24 18:40 Blood Culture (Wb) - Anticubital Right Bacteria Detection (PCR) - Final Meth. resistant Staph. aureus 12/20/24 18:40 Blood Culture (Wb) - Anticubital Right Blood Culture - Preliminary 12/20/24 19:35 Blood Culture (Wb) - Left Hand Blood Culture - Preliminary Radiography Diagnostic Testing: Radiology Impression Abdomen/Pelvis CT 12/20/24 20:33 IMPRESSION: No acute abdominopelvic finding. Reading Location: [facility] Lumbar Spine CT 12/20/24 20:33 IMPRESSION: NO ACUTE LUMBAR FRACTURE. DEGENERATIVE CHANGES. Reading Location: [facility] Rhythm Strip Rhythm Strip: Sinus Tach Rate: 125 Ectopy: None Physical Exam Const alert, oriented x3 and no apparent distress Constitutional Narrative: Patient appears older than her stated age General Appearance: cooperative, well kempt and well developed Orientation / Consciousness: awake, oriented to person, oriented to place and oriented to time HEENT normocephalic, head/scalp atraumatic and moist oral mucous membranes Eyes PERRL, EOMs intact bilaterally and conjunctivae normal Neck supple, no JVD, thyroid normal and no carotid bruits General: trachea midline Resp normal respiratory effort, no retractions, no use of accessory muscles and clearto auscultation bilaterally Auscultation: Negative for rales, rhonchi or wheezes Cardio regular rate, regular rhythm, S1 normal heart sound, S2 normal heart sound, no murmurs, no rub and no gallops GI normal to inspection, nondistended, normoactive bowel sounds, soft to palpation,non-tender and non-distended Extremity no clubbing, cyanosis or edema Skin no rashes or lesions noted General Skin Exam: no breakdown Neuro oriented x3, CN's II-XII intact bilaterally, no focal motor deficits and no sensory deficits noted Sensorium / Orientation: awake and alert Speech: speech normal Psych Psych Narrative: Patient appears to have slowed thought processes and respond slowly to some questions. Assessment & Plan Assessment/Plan (1) Hx of bacteremia: PLAN: Plan 1. Continued bacteremia secondary to MRSA-infectious diseases is now participating in her care and adjusting her antibiotics. Patient's PICC line was removed today due to the fact that it is non functional #2 failure of outpatient antibiotic treatment-exact etiology unclear possibly secondary to patient's inability to administer self antibiotics. #3 type 2 diabetes-blood sugars will be monitored, sliding scale insulin will beadministered as indicated #4 neuropathy secondary to type 2 diabetes-patient is on gabapentin #5 essential hypertension-patient is on carvedilol #6 hyperlipidemia-patient is on Lipitor Total clinical time spent addressing the patient's medical issues, reviewing allof her data, and collaborating with patient's care team: 35 minutes Charges/Coding Visit Charges Inpatient E&M: 39570 Subs Hosp L2 12/21/241936 <Electronically signed by Josie Rivera DO> Cosigner Signature (if applicable): CC: ~ Signed [facility] Work Phone: [phone]) 209-332606-09-2025 Consult note Author Michel Haq [facility] Note Date/Time December 21, 2024 3:23p m [facility] Medical Records Department [address] [place] [address] Consultation - Infectious Dx 12/21/24 1519 MR#: [id number] Acct: [id number] Name: MICHELLE JULES Rep #:[id number] : 1965 59 From: Michel olivarez MD PCP: Dr. Lisseth Peñaloza MD Status:ADM IN [id number] Assessment & Plan Assessment/Plan (1) MRSA bacteremia: PLAN: Now with recurrent MRSA bacteremia and picc malfunction. Had been admitted 11/2024 with sepsis due to MRSA bacteremia, suspected source recent fallwith scrape to L elbow. KANDY reportedly showed no veg. Repeat bcx ngtd. Havingpoint tenderness over L spine. Noncontrast lumbar CT showed only severe degenerative disease, and she reports her pacer-ICD is not MRI compatible. Discharged with picc and 6 weeks iv vanc stop date 01/02/25. Concern for line infection vs pacer-related endocarditis vs worsening lumbar infection. Picc is now out. Will repeat bcx and check KANDY. Cont vanc. Will follow, thank you HPI Consult Data Date of Consult: 12/21/24 HPI Narrative Reason for Consultation: bacteremia HPI Narrative: MICHELLE JULES, is a 59 F with pacer-ICD in place. Admitted 11/2024 with sepsis due to MRSA bacteremia, suspected source recent fall with scrape to L elbow. KANDY reportedly showed no veg. Repeat bcx cleared. Having point tenderness overL spine. Noncontrast lumbar CT showed only severe degenerative disease, and shereports her pacer-ICD is not MRI compatible. Discharged with picc and 6 weeks iv vanc stop date 01/02/25. Had issues with picc at home, most recently slow infusion rate. Missed a few doses of vanc, developed fever, nausea, not feelingwell. Came back to ED, picc removed, admitted on vanc. No new joint pain, still some back pain, no issues with pacer site. No redness/pain at former piccsite. Full ros performed and neg except as noted above. [facility] Medical History MRSA bacteremia Nonischemic cardiomyopathy Diabetes mellitus Bacteremia Low back pain MRSA (methicillin resistant staph aureus) culture positive [...] mg PO BID PRN const ipation 05/06/24 12/20/24 History (Colace) CareFine Pen Needle 30 gauge x #120 ea 05/29/24 Unknow n Rx 11/27 (pen needle, diabetic) insulin syringe-needle U-100 0.5 #90 ea 05/29/24 Unkno wn Rx mL 31 gauge x 5/16 (BD Insulin Syringe Ultra-Fine) sacubitril 24 mg-valsartan 26 mg 1 tab PO BID #60 tabs 06/03/24 12/19/24 Rx tablet (Entresto) blood sugar diagnostic (OneTouch #100 ea 10/15/24 Unkn own Rx Verio test strips) 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 meter (OneTouch #1 ea 10/15/24 Unknown R x Verio Reflect Meter) 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 sensor (FreeStyle #2 ea 10/15/24 Unknown Rx Lance 3 Plus Sensor device) 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,facility designer,cont #1 ea 10/15/24 Unknown Rx (FreeStyle Lance 3 [place]) insulin lispro 100 unit/mL 30 unit subcut TID dm 10/1912/19/24 History subcutaneous pen insulin glargine 100 unit/mL (3 40 unit (0.4 mL) subcu t BID #30 mL 10/21/24 12/19/24 18:06 Rx mL) subcutaneous pen (Lantus Solostar U-100 Insulin) atorvastatin 10 mg tablet (Lipitor) 10 mg PO DAILY cho lesterol #90 tabs 10/22/24 12/20/24 Rx carvedilol 25 mg tablet 25 mg PO Q12H #180 tabs 10/1312/19/24 Rx cetirizine 10 mg capsule 10 mg PO DAILY #90 caps 10/1312/19/24 Rx cholecalciferol (vitamin D3) 1,250 1,250 mcg PO QWEEK #12 caps 10/22/24 12/19/24 Rx mcg (50,000 unit) capsule duloxetine 60 mg capsule,delayed 60 mg PO BID #180 cap s 10/22/24 12/19/24 Rx release magnesium oxide 400 mg (241.3 mg 400 mg PO BID #180 ta bs 10/22/24 12/19/24 Rx magnesium) tablet spironolactone 25 mg tablet 25 mg PO DAILY #30 tabs 12/19/24 Rx pantoprazole 40 mg tablet,delayed 40 mg PO BID #180 ta bs 11/19/24 12/19/24 Rx release (Protonix) ropinirole 0.5 mg tablet 0.5 mg PO QHS #90 tabs 11/1912/19/24 Rx vancomycin 1.75 gram intravenous 1.75 g IV Q12H 39 day s 11/25/24 12/19/24 Rx solution gabapentin 300 mg capsule 300 mg PO DAILY #30 caps 12/19/24 21:06 Rx dulaglutide 3 mg/0.5 mL 3 mg (0.5 mL) subcut QWEEK # 2 mL 12/10/24 12/16/24 Rx subcutaneous pen injector (Trulicity) Allergy/AdvReac Type Severity Reaction Status Date / Time simvastatin Allergy Severe Myalgia Verified 12/20/24 17:46 Latex, Natural Rubber Allergy Unknown Rash Verified 12/20/24 17:46 metformin Allergy Other Verified 12/20/24 17:46 adhesive tape AdvReac Severe Rash Verified 12/20/24 17:46 Family History Father Heart disease Myocardial infarction [...] Extremity General Extremity: Negative for edema Skin Skin Narrative: Mild lumber tenderness. Small splinter hemorrhage R thumb Neuro CN's II-XII intact bilaterally Lab / Micro Data Attestation: I reviewed the patient's lab results. 12/21/24 07:13 12/21/24 07:13 Labs: Laboratory Results - last 24 hr 12/20/24 18:40: WBC 10.1, RBC 4.76, Hgb 14.2, Hct 42.0, MCV 88.2, MCH 29.8, MCHC33.8, RDW Std Deviation 46.1 H, RDW Coeff of [place]atum 14.5, Plt Count 147 L, MPV 9.6,Immature Gran % (Auto) 0.500, Neut % (Auto) 85.9 H, Lymph % (Auto) 7.4 L, [place] %(Auto) 5.4, Eos % (Auto) 0.3, Baso % (Auto) 0.5, Absolute Neuts (auto) 8.7 H, Absolute Lymphs (auto) 0.75 L, Nucleated RBC % 0, PT 13.9, INR 1.1, APTT 23.8 L, Sodium 133, Potassium 4.5, Chloride 96 L, Carbon Dioxide 24.3, Anion Gap 12, BUN12, Creatinine 0.99, Estim Creat Clear Calc 84.17, Est GFR (MDRD) Non-Af 66, BUN/Creatinine Ratio 11.9, Glucose 347 H, Lactic Acid 2.3 H*, Calcium 9.8, TotalBilirubin 0.60, AST 22, ALT 21, Alkaline Phosphatase 207 H, C-React Prot Ext Range 25.40 H, Total Protein 8.3, Albumin 4.3, Globulin 4.0, Albumin/Globulin Ratio 1.1, Random Vancomycin < 4.0 12/20/24 19:47: Urine Color Yellow, Urine Clarity Sl. Cloudy, Urine pH 6.5, Ur Specific [place] 1.015, Urine Protein 15 H, Urine Glucose (UA) 1000 H, Urine Ketones Negative, Urine Occult Blood 10 H, Urine Nitrite Negative, Urine Bilirubin Negative, Urine Urobilinogen Normal, Ur Leukocyte Esterase Negative, Urine RBC 0-5 SEEN, Urine WBC 0-5 SEEN, Ur Squamous Epith Cells 0-5 SEEN, Urine Bacteria 0 SEEN, Urine Mucus 0 SEEN 12/20/24 21:15: ESR 7 12/20/24 22:04: POC Glucose 315 H 12/20/24 23:10: Lactic Acid 1.8 12/21/24 05:42: POC Glucose 248 H 12/21/24 07:13: WBC 10.3, RBC 3.76 L, Hgb 11.1 L, Hct 33.3 L, MCV 88.6, MCH 29.5, MCHC 33.3, RDW Std Deviation 47.0 H, RDW Coeff of [place]atum 14.6, Plt Count 115 L, MPV 10.0, Immature Gran % (Auto) 0.400, Neut % (Auto) 78.8 H, Lymph % (Auto) 12.6 L, [place] % (Auto) 7.6, Eos % (Auto) 0.1, Baso % (Auto) 0.5, Absolute Neuts (auto) 8.1 H, Absolute Lymphs (auto) 1.29, Nucleated RBC % 0, Sodium 135, Potassium 3.9, Chloride 104, Carbon Dioxide 22.0, Anion Gap 9, BUN 14, Creatinine 0.83, Estim Creat Clear Calc 100.58, Est GFR (MDRD) Non-Af 81, BUN/Creatinine Ratio 16.9, Glucose 253 H, Calcium 8.4, Total Bilirubin 0.45, AST17, ALT 17, Alkaline Phosphatase 141 H, Total Protein 6.1, Albumin 3.2 L, Globulin 2.9, Albumin/Globulin Ratio 1.1 Micro: Microbiology 12/20/24 18:40 Blood Culture (Wb) - Anticubital Right Bacteria Detection (PCR) - Final Meth. resistant Staph. aureus 12/20/24 18:40 Blood Culture (Wb) - Anticubital Right Blood Culture - Preliminary 12/20/24 19:35 Blood Culture (Wb) - Left Hand Blood Culture - Preliminary Rhythm Strip Rhythm Strip: Sinus Tach Rate: 125 Ectopy: None Imaging Radiology Impression Chest X-Ray 12/20/24 19:05 IMPRESSION: No Acute Findings. Reading Location: [facility] Abdomen/Pelvis CT 12/20/24 20:33 IMPRESSION: No acute abdominopelvic finding. Reading Location: [facility] Lumbar Spine CT 12/20/24 20:33 IMPRESSION: NO ACUTE LUMBAR FRACTURE. DEGENERATIVE CHANGES. Reading Location: [facility] 12/21/24 1523 <Electronically signed by Michel Haq MD> Cosigner Signature (if applicable): CC: Dr. Lisseth Peñaloza MD; Dr. Hannah Nevarez, DO~ Signed [facility] Work Phone: [phone]) 520-578406-09-2025 Consult note Author Haider Case [facility] Note Date/Time December 21, 2024 2:04a [facility] Medical Records Department [address] [place] [address] Pharmacokinetic/Renal -Consult 12/20/242 MR#: [id number] Acct: [id number] Name: MICHELLE JULES Rep #:[id number] : 1965 59 From: Haider Case PCP: Dr. Lisseth Peñaloza MD Status:ADM IN Y Location: [place] [address] Consult Antibiotic Management Pharmacy has been consulted to manage selected antibiotic: Vancomycin Type of Intervention Type of Consult: New start Suspected Infection Suspected Infection: Bacteremia Labs Labs: Sodium 133 mmol/L (133-145) 12/20/24 18:40 Potassium 4.5 mmol/L (3.3-5.1) 12/20/24 18:40 Chloride 96 mmol/L (98-108) L 12/20/24 18:40 Carbon Dioxide 24.3 mmol/L (21.0-32.0) 12/20/24 18:40 Anion Gap 12 (5-15) 12/20/24 18:40 BUN 12 mg/dL (4-19) 12/20/24 18:40 Creatinine 0.99 mg/dL (0.70-1.20) 12/20/24 18:40 Est GFR (MDRD) Non-Af 66 (>60) 12/20/24 18:40 BUN/Creatinine Ratio 11.9 RATIO (10-20) 12/20/24 18:40 Glucose 347 mg/dL (70-99) H 12/20/24 18:40 Random Vancomycin < 4.0 ug/mL (0.0-15.0) 12/20/24 18:40 Dosing Weight Weight used for dosin kg Estimated Creatinine Clearance Estimated Creatinine Clearance: 84 Goal Trough Goal Trough: 15-20 mcg/mL Pharmacy Plan for Drug Dosing Pharmacy Plan for Drug Dosing: Pharmacy Service will continue to monitor and adjust dosing as required. Follow-Up Labs Follow-Up Labs: Trough: Vancomycin Date/Time Labs Ordered Labs to be done on [date and time ordered]: 12/22/24 @0730 12/20/242252 <Electronically signed by Haider burrell> Date _ Haider Case 12/21/24203 <Electronically signed by Nicole east MD> Cosigner Signature (if applicable): Date Nicole Dobson MD CC: ~ Signed [facility] Work Phone: [phone]) 396-514006-09-2025 Discharge summary Author [facility] Note Date/Time December 20, 2024 10:43 pm [facility] Medical Records Department [address] [place] [id number] Emergency Department Summary 12/20/24 MR#: [id number] Acct: [id number] Name: MICHELLE JULES Rep #:[id number] : 1965 59 From: Hannah Garcia PCP: Dr. Lisseth Peñaloza MD Status:ADM IN Location: [address] History of Present Illness Chief Complaint: Fever Informant: patient Narrative Narrative: Patient is a 59-year-old female with history of GERD, MRSA bacteremia currently has a PICC line receiving IV vancomycin, nonischemic dilated cardiomyopathy, pacemaker, hypertension type 2 diabetes mellitus presenting with recurrent fevers, nausea, vomiting and back pain. Patient states she had a fever of 102.1at home today. She developed worsening nausea and vomiting. She notes since discharge from the hospital on 11/26 she has been feeling better. She initially presented with back pain and fever and was diagnosed with bacteremia with unclear source. She has been given herself vancomycin twice a day but notes that she has been having issues with her line being kinked and trouble getting in and. She does not take any today due to her symptoms and yesterday only got half dose each time. She has been in the ER once since discharge for PICC line malfunction. In the ER Cathflo was infused and PICC line was able to be flushed. Patient was then discharged back home. Patient denies any other new symptoms however she is having some mild lower abdominal pain and recurrent backpain which was one of her initial presenting symptoms with her bacteremia. [facility] Medical History MRSA bacteremia Nonischemic cardiomyopathy Diabetes mellitus Bacteremia Low back pain MRSA (methicillin resistant staph aureus) culture positive [...] mg PO BID PRN const ipation 05/06/24 12/20/24 History (Colace) CareFine Pen Needle 30 gauge x #120 ea 05/29/24 Unknow n Rx 11/27 (pen needle, diabetic) insulin syringe-needle U-100 0.5 #90 ea 05/29/24 Unkno wn Rx mL 31 gauge x 5/16 (BD Insulin Syringe Ultra-Fine) sacubitril 24 mg-valsartan 26 mg 1 tab PO BID #60 tabs 06/03/24 12/19/24 Rx tablet (Entresto) blood sugar diagnostic (OneTouch #100 ea 10/15/24 Unkn own Rx Verio test strips) 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 meter (OneTouch #1 ea 10/15/24 Unknown R x Verio Reflect Meter) 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 sensor (FreeStyle #2 ea 10/15/24 Unknown Rx Lance 3 Plus Sensor device) 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,facility designer,cont #1 ea 10/15/24 Unknown Rx (FreeStyle Lance 3 [place]) insulin lispro 100 unit/mL 30 unit subcut TID dm 10/1912/19/24 History subcutaneous pen insulin glargine 100 unit/mL (3 40 unit (0.4 mL) subcu t BID #30 mL 10/21/24 12/19/24 18:06 Rx mL) subcutaneous pen (Lantus Solostar U-100 Insulin) atorvastatin 10 mg tablet (Lipitor) 10 mg PO DAILY cho lesterol #90 tabs 10/22/24 12/20/24 Rx carvedilol 25 mg tablet 25 mg PO Q12H #180 tabs 10/1312/19/24 Rx cetirizine 10 mg capsule 10 mg PO DAILY #90 caps 10/1312/19/24 Rx cholecalciferol (vitamin D3) 1,250 1,250 mcg PO QWEEK #12 caps 10/22/24 12/19/24 Rx mcg (50,000 unit) capsule duloxetine 60 mg capsule,delayed 60 mg PO BID #180 cap s 10/22/24 12/19/24 Rx release magnesium oxide 400 mg (241.3 mg 400 mg PO BID #180 ta bs 10/22/24 12/19/24 Rx magnesium) tablet spironolactone 25 mg tablet 25 mg PO DAILY #30 tabs 12/19/24 Rx pantoprazole 40 mg tablet,delayed 40 mg PO BID #180 ta bs 11/19/24 12/19/24 Rx release (Protonix) ropinirole 0.5 mg tablet 0.5 mg PO QHS #90 tabs 11/1912/19/24 Rx vancomycin 1.75 gram intravenous 1.75 g IV Q12H 39 day s 11/25/24 12/19/24 Rx solution gabapentin 300 mg capsule 300 mg PO DAILY #30 caps 12/19/24 21:06 Rx dulaglutide 3 mg/0.5 mL 3 mg (0.5 mL) subcut QWEEK # 2 mL 12/10/24 12/16/24 Rx subcutaneous pen injector (Trulicity) Allergy/AdvReac Type Severity Reaction Status Date / Time simvastatin Allergy Severe Myalgia Verified 12/20/24 17:46 Latex, Natural Rubber Allergy Unknown Rash Verified 12/20/24 17:46 metformin Allergy Other Verified 12/20/24 17:46 adhesive tape AdvReac Severe Rash Verified 12/20/24 17:46 Family History Father Heart disease Myocardial infarction [...] ROS ROS ED Constitutional Constitutional ED: Reports chills, fever(s) and sweats ENT ENT ED: Denies sore throat Cardiovascular Cardiovascular: Denies chest pain or palpitations Respiratory/Chest Respiratory/Chest: Denies cough or dyspnea Gastrointestinal Gastrointestinal: Reports abdominal pain, nausea and vomiting; Denies diarrhea or melena Genitourinary Genitourinary ED: Denies dysuria or urinary frequency Musculoskeletal Musculoskeletal: Reports arthralgias and back pain Integumentary Denies rash Neurologic Neurologic: Reports weakness Hematologic/Lymphatic Hematologic/Lymphatic: Denies easy bleeding or easy bruising EXAM Physical Exam Const Vital Signs: 12/20/24 17:42 12/20/24 17:46 12/20/24 17:59 Temperature 98.4 F 98.2 F Temperature Source Oral Oral Pulse Rate 133 H 127 H Respiratory Rate 19 H 16 Respiratory Effort Normal Non-Labored Respiratory Pattern Normal Blood Pressure 134/86 H 164/90 H Blood Pressure Mean 102 114 Pulse Ox 96 95 Oxygen Delivery Method Room Air Room Air 12/20/24 18:07 12/20/24 19:00 12/20/24 19:50 Temperature 99.7 F H 99.5 F H Temperature Source Oral Oral Pulse Rate 123 H 128 H Respiratory Rate 22 H 19 H Respiratory Effort Respiratory Pattern Blood Pressure 118/70 115/71 Blood Pressure Mean 86 85 Pulse Ox 94 94 Oxygen Delivery Method Room Air Room Air Room Air Positive well nourished and well developed General Appearance ED: well developed and NAD HEENT Reports moist mucous membranes Eyes PERRL Neck supple and no JVD Chest Wall inspection of chest normal and palpation of chest normal Resp normal respiratory effort and clear to auscultation bilaterally Auscultation: Negative for rales, rhonchi or wheezes Cardio regular rhythm and no murmurs Rate: tachycardic GI normal to inspection, nondistended, normoactive bowel sounds, non-tender and non-distended Back/Spine no CVA tenderness Back/Spine Narrative: Diffuse lumbar tenderness approximately level of L4 Neuro oriented x3 Neuro Narrative: Ambulatory with a steady gait Sensorium / Orientation: alert Motor Exam: Negative for general weakness Psych mental status grossly normal Skin no rashes or lesions noted and no wounds MDM MDM MDM Narrative Medical decision making narrative: Patient evaluated for recurrent fevers. She is currently on vancomycin through PICC line but notes that recently she been having issues with her PICC line has been running very slowly. She recently had MRSA bacteremia but the initial source was not clear. Septic workup was initiated patient is tachycardic and reports fevers upon arrival. Her white blood cell count is normal and she does not have a left shift. She is hyperglycemic with glucose of 347 however she has a normal anion gap. BMP otherwise unremarkable. No transaminitis present. CRP added on due to recurrent infection with unclear source is mildly elevated at 25.4. Is down from where it was during her admission. Urinalysis is not consistent with infection. Her random Vanco level is less than 4 which is consistent with her not being therapeutic. Patient is loaded with vancomycin in the ER. We are not able to draw cultures from her PICC line but it does flush. I suspect the PICC line dysfunction is led to her noncompliance with the vancomycin. Will be readmitted to the hospital for IV antibiotics and concern for recurrent bacteremia. Patient is agreeable this plan of care. Patient did receive Toradol, fluids and Zofran in the ER with some improvement of her symptoms. Case discussed with hospitalist for admission. She will add on CT of the lumbar spine and abdomen pelvis given that she is having recurrent pain there and sure that nothing has blossomed or waste/materials exchange specialist the past few weeks History & Record Review Additional record(s) reviewed:: Prior inpatient record (Discharge summary-MRSA bacteremia, unclear source-discharged with vancomycin and PICC line) Lab Data Attestation: I reviewed the patient's lab results. Labs: Laboratory Results - last 24 hr 12/20/24 12/20/24 18:40 19:47 WBC 10.1 RBC 4.76 Hgb 14.2 Hct 42.0 MCV 88.2 MCH 29.8 MCHC 33.8 RDW Std Deviation 46.1 H RDW Coeff of [place]atum 14.5 Plt Count 147 L MPV 9.6 Immature Gran % (Auto) 0.500 Neut % (Auto) 85.9 H Lymph % (Auto) 7.4 L [place] % (Auto) 5.4 Eos % (Auto) 0.3 Baso % (Auto) 0.5 Absolute Neuts (auto) 8.7 H Absolute Lymphs (auto) 0.75 L Nucleated RBC % 0 PT 13.9 INR 1.1 APTT 23.8 L Sodium 133 Potassium 4.5 Chloride 96 L Carbon Dioxide 24.3 Anion Gap 12 BUN 12 Creatinine 0.99 Estim Creat Clear Calc 84.17 Est GFR (MDRD) Non-Af 66 BUN/Creatinine Ratio 11.9 Glucose 347 H Lactic Acid 2.3 H* Calcium 9.8 Total Bilirubin 0.60 AST 22 ALT 21 Alkaline Phosphatase 207 H C-React Prot Ext Range 25.40 H Total Protein 8.3 Albumin 4.3 Globulin 4.0 Albumin/Globulin Ratio 1.1 Urine Color Yellow Urine Clarity Sl. Cloudy Urine pH 6.5 Ur Specific [place] 1.015 Urine Protein 15 H Urine Glucose (UA) 1000 H Urine Ketones Negative Urine Occult Blood 10 H Urine Nitrite Negative Urine Bilirubin Negative Urine Urobilinogen Normal Ur Leukocyte Esterase Negative Urine RBC 0-5 SEEN Urine WBC 0-5 SEEN Ur Squamous Epith Cells 0-5 SEEN Urine Bacteria 0 SEEN Urine Mucus 0 SEEN Random Vancomycin < 4.0 Radiography Chest X-Ray - ED: 1 View, Read by ED Physician, Read by Radiologist and No AcuteDisease Diagnostic Testing: Clinical Impression(s) from Imaging Studies Chest X-Ray 12/20/24 19:05 IMPRESSION: No Acute Findings. Reading Location: [facility] Rhythm Strip Rhythm Strip: Sinus Tach Rate: 125 Ectopy: None EKG Initial EKG: Attestation: I personally reviewed and interpreted this EKG as follows: Interpretation: Paced Comments: Atrial sensed ventricular paced rhythm at a rate 125 bpm Normal axis Nonspecific T wave changes with no significant morphology change compared to prior EKG on 11/20/2024 Management Discussion w/another healthcare provider: Hospitalist Discharge Plan Dx/Rx/DC Orders Clinical Impression: Fever, Tachycardia, Failure of outpatient treatment, PICC (peripherally inserted central catheter) in place, Hx of bacteremia Disposition Disposition: Acute Care Hospital [facility] Discharge Date/Time: 12/20/24 21:41 What to do if you have Problems For any increased pain, shortness of breath, bleeding, nausea or vomiting, chestpain, or any unexpected problems, contact your Primary Care Provider. Call [facility] ([phone]) or report to the closest Emergency Room. Call 911 if necessary. 12/20/242242 <Electronically signed by Hannah Nevarze DO> Cosigner Signature (if applicable): CC: Dr. Lisseth Peñaloza MD ~ Signed [facility] Work Phone: [phone] History and physical note Author Nicole Dobson [facility] Note Date/Time December 20, 2024 10:38 pm [facility] Medical Records Department [address] [place] [address] H&P Exam - Hospitalist 12/20/242026 MR#: [id number] Acct: [id number] Name: MICHELLE JULES Rep #:[id number] : 1965 59 From: Nicole Dobson MD PCP: Dr. Lisseth Peñaloza MD Status:ADM IN Location: [facility] [id number] HPI - General General Date of Admission: 12/20/24 Date of Service: 12/20/24 Chief Complaint: Back pain, N/V, lower abdominal discomfort HPI Narrative The patient is a 59 y/o F w/ PMHx: Anxiety and depression, CKD stage II per GFR trending although has vacillated, ischemic cardiomyopathy/HFrEF s/p AICD, HTN, HLD, GERD, Diabetes mellitus type II with chronic neuropathy, Allergic rhinitis,Gout, Obesity, RLS who presents to the [facility] ED on 12/20/2024with history of recent MRSA bacteremia suspected per ID from a recent fall previous to her presentation with a scrape to the left elbow with unremarkable workup otherwise with KANDY with no evidence of any vegetations and eventual repeat blood cultures negative with a noncontrast lumbar CT with degenerative changes only given back discomfort and unfortunately pacer ICD not compatible with MRI with current PICC line in place receiving IV vancomycin with planned duration x 6 weeks with stop date 01/02/2025 with weekly labs and ID follow-up initially feeling improved since her discharge from the hospital 11/26/2024 unfortunately with onset of recurrent fevers, nausea and emesis as well as lumbar back pain in addition to lower bilateral quadrant abdominal discomfort worse on the left than the right with a fever of up to 102.1 at home today although she does report that she has had some difficulty giving herself her home vancomycin twice daily and is concerned that she may potentially not have been getting the infusion correctly because the tubing has been kinked noting that she may have even only gotten half a dose twice the day prior and not on day of presentation presenting 1 slightly since her discharge for PICC line malfunction with Cathflo infusion. Workup in the ED included T98.4, heart rate 133, BP 130/86, respiratory rate 19, 96% on room air with most recent repeat vitals T99.5, heart rate 128, BP 115/71, respiratory rate 19, 94% on room air, CBC with WBC 10.1, he 1 14.2, platelet 147 with left shift and lymphopenia, unremarkable coags aside PT 23.8, CMP with chloride 96, glucose 347, BUN/creatinine 12/0.99, GFR 66, alk phos 207 otherwise hepatic profile not marked appearing, lactic acid 2.3, CRP 25.40, urinalysis with no obvious evidence of UTI, random Vanco level less than 4, chest x-ray with no acute cardiopulmonary findings. In the ED patient ministered Toradol 50 mg IV x 1, Zofran 4 mg IV x 1, 2 L normal saline and vancomycin 1750 mg IV x 1. [facility] Medical History MRSA bacteremia Nonischemic cardiomyopathy Diabetes mellitus Bacteremia Low back pain MRSA (methicillin resistant staph aureus) culture positive [...] mg PO BID PRN const ipation 05/06/24 12/20/24 History (Colace) CareFine Pen Needle 30 gauge x #120 ea 05/29/24 Unknow n Rx 5/16 (pen needle, diabetic) insulin syringe-needle U-100 0.5 #90 ea 05/29/24 Unkno wn Rx mL 31 gauge x 5/16 (BD Insulin Syringe Ultra-Fine) sacubitril 24 mg-valsartan 26 mg 1 tab PO BID #60 tabs 06/03/24 12/19/24 Rx tablet (Entresto) blood sugar diagnostic (OneTouch #100 ea 10/15/24 Unkn own Rx Verio test strips) 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 meter (OneTouch #1 ea 10/15/24 Unknown R x Verio Reflect Meter) 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 sensor (FreeStyle #2 ea 10/15/24 Unknown Rx Lance 3 Plus Sensor device) 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,facility designer,cont #1 ea 10/15/24 Unknown Rx (FreeStyle Lance 3 [place]) insulin lispro 100 unit/mL 30 unit subcut TID dm 10/1912/19/24 History subcutaneous pen insulin glargine 100 unit/mL (3 40 unit (0.4 mL) subcu t BID #30 mL 10/21/24 12/19/24 18:06 Rx mL) subcutaneous pen (Lantus Solostar U-100 Insulin) atorvastatin 10 mg tablet (Lipitor) 10 mg PO DAILY cho lesterol #90 tabs 10/22/24 12/20/24 Rx carvedilol 25 mg tablet 25 mg PO Q12H #180 tabs 10/1312/19/24 Rx cetirizine 10 mg capsule 10 mg PO DAILY #90 caps 10/1312/19/24 Rx cholecalciferol (vitamin D3) 1,250 1,250 mcg PO QWEEK #12 caps 10/22/24 12/19/24 Rx mcg (50,000 unit) capsule duloxetine 60 mg capsule,delayed 60 mg PO BID #180 cap s 10/22/24 12/19/24 Rx release magnesium oxide 400 mg (241.3 mg 400 mg PO BID #180 ta bs 10/22/24 12/19/24 Rx magnesium) tablet spironolactone 25 mg tablet 25 mg PO DAILY #30 tabs 12/19/24 Rx pantoprazole 40 mg tablet,delayed 40 mg PO BID #180 ta bs 11/19/24 12/19/24 Rx release (Protonix) ropinirole 0.5 mg tablet 0.5 mg PO QHS #90 tabs 11/1912/19/24 Rx vancomycin 1.75 gram intravenous 1.75 g IV Q12H 39 day s 11/25/24 12/19/24 Rx solution gabapentin 300 mg capsule 300 mg PO DAILY #30 caps 12/19/24 21:06 Rx dulaglutide 3 mg/0.5 mL 3 mg (0.5 mL) subcut QWEEK # 2 mL 12/10/24 12/16/24 Rx subcutaneous pen injector (Trulicity) Allergy/AdvReac Type Severity Reaction Status Date / Time simvastatin Allergy Severe Myalgia Verified 12/20/24 17:46 Latex, Natural Rubber Allergy Unknown Rash Verified 12/20/24 17:46 metformin Allergy Other Verified 12/20/24 17:46 adhesive tape AdvReac Severe Rash Verified 12/20/24 17:46 Family History Father Heart disease Myocardial infarction [...] safe at home: Yes ROS ROS Narrative Admission Review of Systems: CONSTITUTIONAL: No weight loss, + fever, chills, weakness or fatigue. HEENT: Eyes: No visual loss, blurred vision, double vision or yellow sclerae. Ears, Nose, Throat: No hearing loss, sneezing, congestion, runny nose or sore throat. SKIN: No rash or itching, lesions, wounds. CARDIOVASCULAR: No chest pain, chest pressure or chest discomfort, palpitations,edema, orthopnea, syncopal events. RESPIRATORY: No shortness of breath, cough or sputum, wheezing, hemoptysis. GASTROINTESTINAL: + Anorexia, nausea, vomiting, lower abdominal discomfort bilaterally, left greater than right. No diarrhea, melena, BRBPR. GENITOURINARY: No dysuria, frequency, urgency or retention. NEUROLOGICAL: No headache, dizziness, syncope, paralysis, ataxia, numbness or tingling in the extremities, focal weakness, change in bowel or bladder control,seizure. MUSCULOSKELETAL: +muscle, back pain, joint pain or stiffness. HEMATOLOGIC: No anemia. + Easy bleeding/bruising. LYMPHATICS: No enlarged nodes. No history of splenectomy. PSYCHIATRIC: + History of anxiety and depression. ENDOCRINOLOGIC: No reports of sweating, cold or heat intolerance. No polyuria orpolydipsia. ALLERGIES: + History of allergic rhinitis. Vital Signs Vital Signs Vital Signs: 12/20/24 17:42 12/20/24 17:46 12/20/24 17:59 Temperature 98.4 F 98.2 F Temperature Source Oral Oral Pulse Rate 133 H 127 H Respiratory Rate 19 H 16 Respiratory Effort Normal Non-Labored Respiratory Pattern Normal Blood Pressure 134/86 H 164/90 H Blood Pressure Mean 102 114 Pulse Ox 96 95 Oxygen Delivery Method Room Air Room Air 12/20/24 18:07 12/20/24 19:00 12/20/24 19:50 Temperature 99.7 F H 99.5 F H Temperature Source Oral Oral Pulse Rate 123 H 128 H Respiratory Rate 22 H 19 H Respiratory Effort Respiratory Pattern Blood Pressure 118/70 115/71 Blood Pressure Mean 86 85 Pulse Ox 94 94 Oxygen Delivery Method Room Air Room Air Room Air Weight Weight: 255 lb 8.252 oz Body Mass Index (BMI) 37.7 Physical Exam Narrative Physical Examination: General: Awake, alert, oriented x 3 and cooperative, laying in the bed, fatigued, no acute distress. Skin: Mildly flushed color, normal turgor, no icterus, no cyanosis except occasional stage ecchymoses, abrasion, small petechiae to the lower extremities bilaterally. HEENT: AT/NC, EOMI, PERRLA, mildly dry MM, no carotid bruits, difficult to discern JVD given thickened neck. Lungs: Mildly diminished, better bases, mild increased respiratory rate but no distress, no rales, ronchi or wheezing. Heart: Tachycardic with regular rhythm; no gallop, rub audible. Abdomen: Soft, obese, mild discomfort to palpation of the bilateral lower quadrants left greater than right with no rebound or guarding, no suprapubic discomfort, no flank discomfort, no obvious distention or tympany, distant BS, difficult to discern HSM given habitus. Extremities: No cyanosis, clubbing, or edema, see skin. Neurological: Patient awake, alert, oriented as noted, cognitive function intact; pupils equally reactive to light and accommodation, cranial nerves grossnormal, moving all 4 extremities, no focal deficits, strength moderately to severely globally decreased secondary to acute presentation. Psychiatric: Affect appears flat, fatigued, ill-appearing, no acute evidence of depressive or anxiety feelings but does have underlying history. Results Lab / Micro Data 12/20/24 18:40 12/20/24 18:40 Labs: Laboratory Results - last 24 hr 12/20/24 18:40: WBC 10.1, RBC 4.76, Hgb 14.2, Hct 42.0, MCV 88.2, MCH 29.8, MCHC33.8, RDW Std Deviation 46.1 H, RDW Coeff of [place] 14.5, Plt Count 147 L, MPV 9.6,Immature Gran % (Auto) 0.500, Neut % (Auto) 85.9 H, Lymph % (Auto) 7.4 L, [place] %(Auto) 5.4, Eos % (Auto) 0.3, Baso % (Auto) 0.5, Absolute Neuts (auto) 8.7 H, Absolute Lymphs (auto) 0.75 L, Nucleated RBC % 0, PT 13.9, INR 1.1, APTT 23.8 L, Sodium 133, Potassium 4.5, Chloride 96 L, Carbon Dioxide 24.3, Anion Gap 12, BUN12, Creatinine 0.99, Estim Creat Clear Calc 84.17, Est GFR (MDRD) Non-Af 66, BUN/Creatinine Ratio 11.9, Glucose 347 H, Lactic Acid 2.3 H*, Calcium 9.8, TotalBilirubin 0.60, AST 22, ALT 21, Alkaline Phosphatase 207 H, C-React Prot Ext Range 25.40 H, Total Protein 8.3, Albumin 4.3, Globulin 4.0, Albumin/Globulin Ratio 1.1, Random Vancomycin < 4.0 12/20/24 19:47: Urine Color Yellow, Urine Clarity Sl. Cloudy, Urine pH 6.5, Ur Specific [place] 1.015, Urine Protein 15 H, Urine Glucose (UA) 1000 H, Urine Ketones Negative, Urine Occult Blood 10 H, Urine Nitrite Negative, Urine Bilirubin Negative, Urine Urobilinogen Normal, Ur Leukocyte Esterase Negative, Urine RBC 0-5 SEEN, Urine WBC 0-5 SEEN, Ur Squamous Epith Cells 0-5 SEEN, Urine Bacteria 0 SEEN, Urine Mucus 0 SEEN Imaging Radiology Impression Chest X-Ray 12/20/24 19:05 IMPRESSION: No Acute Findings. Reading Location: [id number] Assessment & Plan Assessment/Plan (1) MRSA bacteremia: PLAN: Plan The patient is a 59 y/o F w/ PMHx: Anxiety and depression, CKD stage II per GFR trending although has vacillated, ischemic cardiomyopathy/HFrEF s/p AICD, HTN, HLD, GERD, Diabetes mellitus type II with chronic neuropathy, Allergic rhinitis,Gout, Obesity, RLS who presents to the [facility] ED on 12/20/2024with history of recent MRSA bacteremia suspected per ID from a recent fall previous to her presentation with a scrape to the left elbow with unremarkable workup otherwise including negative KANDY with onset of recurrent fevers, nausea and emesis as well as lumbar back pain with a fever of up to 102.1 at home todayalthough she does report that she has had some difficulty giving herself her home vancomycin twice daily and is concerned that she may potentially not have been getting the infusion correctly because the tubing has been kinked noting that she may have even only gotten half a dose twice the day prior and not on day of presentation presenting 1 slightly since her discharge for PICC line malfunction with Cathflo infusion. #1. Recent MRSA bacteremia suspected secondary to recent left elbow injury withrecurrent PICC malfunction with suspected underdosing of vancomycin with recurrent fevers in addition to intractable nausea and emesis as well as persistent lumbar back pain with mild lactic acidosis but no overt endorgan damage: Will admit to PCU, maintain on IV vancomycin, will also obtain ESR, willrequest involvement of infectious disease, will assure that at least 1 blood culture has been obtained from a new PICC line, may need to consider alternate access but ideally would like to make sure that there is no recurrent bacteremia, given persistent lumbar back pain with no obvious evidence of UTI wewill request to be cautious CT abdomen and pelvis and CT lumbar spine to assure no source evident given the time lapse since initial evaluation, will allow clear liquids with judicious fluids given ischemic, apathy history with reduced EF status post AICD, maintain on IV PPI, antiemetic and pain regimen as needed, PT/OT/case management consulted for discharge planning. #2. Thrombocytopenia, new onset during previous admission: Admission platelet 147, during recent admission patient did have evidence of new onset thrombocytopenia, 11/25/2024 at last lab prior to discharge platelets 142, 12/15/2024 evaluation platelets 142, will continue to trend, likely related with acute presentation, reactive component. #3. HFrEF/ischemic cardiomyopathy: Status post AICD, not compatible for MRI unfortunately, has complicated current presentation is unable to perform MRI forlumbar back pain with no obvious acute findings on CT, will judiciously hydrate given underlying history, continue aspirin, statin, Coreg, Entresto, spironolactone as BP allows. #4. Diabetes mellitus type II with hyperglycemia with chronic neuropathy: Hold oral home regimen, continue home insulin regimen, initiate on clears given GI symptoms with advance diet as tolerated once improving, maintain in the interim on every 6 hours accu checks w/ ISS, continue home gabapentin regimen. #5. Hypertension: Continue home regimen including spironolactone, Entresto, Coreg with hold parameters as needed, PRN hydralazine. #6. Hyperlipidemia: Will continue patient on statin therapy. #7. Anxiety and depression: Will continue patient on duloxetine regimen. #8. Chronic Kidney Disease Stage II per GFR trending although has vacillated: Admission BUN/Cr 12/0.99, GFR 66, baseline renal function primarily 0.6-0.9, repeat BMP in AM. #9. Obesity: Weight loss and lifestyle changes encouraged. #10. GERD: Will maintain on IV PPI given acute presentation with GI symptoms, transition back to oral regimen once appropriate. #11. Restless leg syndrome: Will continue patient on Requip regimen. #12. Allergic rhinitis: Will continue patient on cetirizine regimen. #13. DVT prophylaxis: Lovenox. Charges/Coding Visit Charges Inpatient E&M: 31970 Init Hosp L3 12/20/242049 <Electronically signed by Nicole Dobson MD> Cosigner Signature (if applicable): CC: Dr. Lisseth Peñaloza MD; Dr. Nicole Dobson MD~ Signed ADDENDUM by Dr. Nicole Dobson MD on 12/20/[address] A/P and CT lumbar spine unremarkable. 12/20/242236<Electronically signed by Nicole Dobson MD> Cosigner Signature (if applicable): cc: Dr. Lisseth Peñaloza MD; Dr. Nicole Dobson MD ~* Signed ADDENDUM by Dr. Nicole Dobson MD on 12/20/24 at 2238 Addendum ED notes intention to order cathflo to attempt to be able to pull from PICC, requested blood cx from PICC if able to reinitiate flow. 12/20/242237<Electronically signed by Nicole Dobson MD> Cosigner Signature (if applicable): cc: Dr. Lisseth Peñaloza MD; Dr. Nicole Dobson MD ~* Signed [facility] Work Phone: 1(324) 554-324106-08-2025 Radiology Diagnostic study [facility]06-08-2025 Radiology Diagnostic study [facility]06-08-2025 Radiology Diagnostic study [facility] 11-28-2024 Discharge summary Author Haider Valdes [facility] Note Date/Time November 28, 2024 12:40 am [facility] Medical Records Department [address] [place] [address] Emergency Department Summary 11/27/24 MR#: [id number] Acct: [id number] Name: MICHELEL JULES Rep #:[id number] : 1965 59 From: Haider Garcia [...] Patient also admits to a mild headache. [facility] Medical History MRSA (methicillin resistant [...] Unkno wn Rx mL 31 gauge x 11/27 (BD Insulin Syringe Ultra-Fine) sacubitril 24 mg-valsartan 26 mg 1 tab PO BID #60 tabs 06/03/24 Unknown Rx tablet (Entresto) blood sugar diagnostic (OneTouch #100 ea 10/15/24 Unkn own Rx Verio test strips) 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 meter (OneTouch #1 ea 10/15/24 Unknown R x Verio Reflect Meter) 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 sensor (FreeStyle #2 ea 10/15/24 Unknown Rx Lance 3 Plus Sensor device) 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,facility designer,cont #1 ea 10/15/24 Unknown Rx (FreeStyle Lance 3 [place]) dulaglutide 1.5 mg/0.5 mL 1.5 mg (0.5 [...] IMPRESSION: No acute cardiopulmonary process. Reading Location: [facility] and lateral chest x-ray was obtained. There are 2 views. On my independent interpretation, lung barroso are clear. There is normal cardiac silhouette. Bony thorax is normal. There is no acute process noted. Radiologist also interpreted the x-ray and agrees. Treatment and Re-Evaluation :: Cathflo Activase was infused by nursing covering and lining supervisor. PICC line was able to be [...] u w/ snacks (DME) FreeStyle Lance 3 [place] Misc See Rx Instructions .Route Qty: 1 [...] bmp, cbc, and vanc trough. Fax to [phone]. Routine picc care per protocol. Entresto 24-26 [...] Care Provider] - 5-7 Days Print Language: Samoan Disposition Disposition: Home, Self Care What to do if you have Problems For any increased pain, shortness of breath, bleeding, nausea or vomiting, chestpain, or any unexpected problems, contact your Primary Care Provider. Call [facility] ([phone]) or report to the closest Emergency Room. Call 911 if necessary. 11/28/24 0040 <Electronically signed by Haidre Valdes DO> Cosigner Signature (if applicable): CC: Dr. Lisseth Peñaloza MD ~ Signed [facility] Work Phone: 1(464) 270-579605-16-2025 Radiology Diagnostic study [facility]05-15-2025 Discharge summary Author Denisse [facility] Note Date/Time November 26, 2024 12:19 pm [facility] Medical Records Department [address] [place] [address] Instructions for Home/Discharge Instructions 11/26/24 1218 MR#: [id number] Acct: [id number] Name: MICHELLE JULES Rep #:[id number] : 1965 59 From: Denisse Guan [...] Chi; Jesus Varela; Lara Durant; Sigrid Adkins; Mclean,Camila; John,Guilherme; Dada Tidwell; Mario Keller; Flash Newton; Lida Falcon; Jhony Zhang; Varun Collier; Yusuf Field; Thomas Paulino; Jean Trujillo; Michel Haq; Haider Smith Instructions Patient Instructions: ED Bacteremia, Suspected (Adult) Discharge Orders/Prescriptions Prescriptions: New vancomycin 1.75 gram recon soln 1.75 g IV Q12H 39 Days Rx Instructions: stop date 01/02/25. Dx: MRSA bacteremia. Weekly bmp, cbc, and vanc trough. Fax to [phone]. Routine picc care per protocol. No Action [...] u w/ snacks (DME) FreeStyle Lance 3 [place] Misc See Rx Instructions .Route Qty: 1 [...] can be placed): Home Health Service 11/26/24 1684<Electronically signed by Denisse Guan MD>Denisse Guan MD CC: Dr. Clifton Alexander MD; Dr. Lisseth Peñaloza MD; Dr. Karthik Tang MD; Dr. Clifford Cody MD; Dr. Jean Trujillo MD; Dr. Jeanie Hunt MD; Dr. Deon Mcclellan DO; Dr. Rajan De La Cruz MD; Dr. Haider Smith DO; Dr. cSout Curry MD; Dr. Pedro Luis Lal MD; [...] Thomas Paulino MD; Dr. Dustin MD ~ [facility] Work Phone: 1(299) 267-983605-15-2025 [facility]05-14-2025 Progress note Author Haider [facility] Note Date/Time November 25, 2024 3:01p [facility] Medical Records Department [address] [place] [address] Progress Note - Hospitalist 11/25/24 0804 MR#: [id number] Acct: [id number] Name: MICHELLE JULES Rep #:[id number] : 1965 59 From: Haider Smith DO PCP: Dr. Lisseth Peñaloza MD Status:ADM IN Location: [place] [address]- 1 Reason for Visit Reason for Visit: [...] % (Auto) 45.6 L, Lymph % (Auto) 37.4,[place] % (Auto) 12.1 H, Eos % (Auto) [...] 40%. KANDY negative. Blood cultures 11/21 pending [facility] for now. Likely the cefepime can be [...] * DM2: Glargine and SSI. a1c 10.7 2/24/25 VTE prophylaxis: LMWH Disposition: to home with [facility] for IV abx on 11/26. Charges/Coding Visit Charges Inpatient E&M: 03844 Subs Hosp L1 11/25/24 1501 <Electronically signed by Haider Smith DO> Cosigner Signature (if applicable): CC: ~ Signed [facility] Work Phone: 1(415) 278-239305-14-2025 Progress note Author Michel Haq [facility] Note Date/Time November 25, 2024 1:16p m [facility] Medical Records Department [address] [place] [address] Progress Note - Infect Disease 11/25/24 1314 MR#: [id number] Acct: [id number] Name: MICHELLE JULES Rep #:[id number] : 1965 59 From: Michel olivarez MD PCP: Dr. Lisseth Peñaloza MD Status:ADM IN Location: [place] [address] Physical Exam Narrative No fever, no n/v/d. [...] [] Nutritional Intake: [] IV Site: [] Berger Catheter: [] Assessment & Plan Assessment/Plan (1) [...] consider longer term suppressive po abx. D/w field case manager Will follow (2) Sepsis: (3) Low back pain: 11/25/24 1316 <Electronically signed by Michel Haq MD> Cosigner Signature (if applicable): CC: ~ Signed [facility] Work Phone: 1(483) 651-764905-14-2025 Consult note Author Haider Case [facility] Note Date/Time November 25, 2024 6:33a m [facility] Medical Records Department [address] [place] [address] Pharmacokinetic/Renal -Consult 11/25/24 0631 MR#: [id number] Acct: [id number] Name: MICHELLE JULES Rep #:[id number] : 1965 59 From: Haider Case PCP: Dr. Lisseth Peñaloza MD Status:ADM IN Y Location: [place] [address] Consult Antibiotic Management Pharmacy has been consulted [...] Signature (if applicable): Date CC: ~ Signed [facility] Work Phone: 1(777) 716-779705-13-2025 Progress note Author Haider Smith [facility] Note Date/Time November 24, 2024 11:39 am [facility] Medical Records Department [address] [facility] [place] [address] Progress Note - Hospitalist 11/24/24 0736 MR#: [id number] Acct: [id number] Name: MICHELLE JULES Rep #:[id number] 0 : 1965 59 From: Haider Smith DO PCP: Dr. Lisseth Peñaloza MD Status:ADM IN Location: [place] [id number]- 1 Reason for Visit Reason for Visit: [...] (Auto) 46.3 L, Lymph % (Auto) 38.3, [place] % (Auto) 11.0 H, Eos % (Auto) [...] Peñaloza Performed By: Cassy Becker, RDCS, RVT Rhythm Strip Rhythm Strip: A sensed [...] prophylaxis: LMWH Charges/Coding Visit Charges Inpatient E&M: 82925 Subs Hosp L2 11/24/24 1139 <Electronically signed by Haider Smith DO> Cosigner Signature (if applicable): CC: ~ Signed [facility] Work Phone: [phone]) 569-365605-13-2025 Progress note Author Michel Haq [facility] Note Date/Time November 24, 2024 10:25 am [facility] Medical Records Department [address] [place] [address] Progress Note - Infect Disease 11/24/24 1022 MR#: [id number] Acct: [id number] Name: MICHELLE JULES Rep #:[id number] 1 : 1965 59 From: Michel olivarez MD PCP: Dr. Lisseth Peñaloza MD Status:ADM IN Location: [place] [address] Physical Exam Narrative Feeling better, no fever, [...] [] Nutritional Intake: [] IV Site: [] Berger Catheter: [] Assessment & Plan Assessment/Plan (1) [...] Cosigner Signature (if applicable): CC: ~ Signed [facility] Work Phone: [phone] 276-302605-13-2025 Progress note Author Kasandra Hinkle [facility] Note Date/Time November 24, 2024 7:43a m [facility] Medical Records Department [address] [place] [address] Progress Note - Cardiology 11/24/24 0735 MR#: [id number] Acct: [id number] Name: MICHELLE JULES Rep #:[id number] 1 : 1965 59 From: Kasandra Hinkle MD PCP: Dr. Lisseth Peñaloza MD Status:ADM IN Location: [place] [address] Subjective Subjective Patient is resting comfortably in [...] (Auto) 46.3 L, Lymph % (Auto) 38.3, [place] % (Auto) 11.0 H, Eos % (Auto) [...] (Auto) 46.3 L, Lymph % (Auto) 38.3, [place] % (Auto) 11.0 H, Eos % (Auto) 3.0, Baso% (Auto) 0.9, Absolute Neuts (auto) 2.0, Nucleated RBC % 0, Sodium 140, Potassium 3.9, Chloride 107, Carbon Dioxide 22.7, Anion Gap 10, BUN 6, Creatinine 0.62 L, Est GFR (MDRD) Non-Af 103, BUN/Creatinine Ratio 9.7 L, Ydlumqs47, Calcium 8.9 Rhythm: EKG: ECHO: Stress Test: [...] ventricular paced. She is followed by the [facility]. She has an [...] cardiac appointments. Charges/Coding Visit Charges Inpatient E&M: 82347 Subs Hosp L2 11/24/24 0743 <Electronically signed by Kasandra Hinkle MD> Cosigner Signature (if applicable): CC: ~ Signed [facility] Work Phone: [phone] 450-193605-12-2025 Consult note Author Hang Powers [facility] Note Date/Time November 23, 2024 6:32p m [facility] Medical Records Department [address] [place] [address] Pharmacokinetic/Renal -Consult 11/23/24 1831 MR#: [id number] Acct: [id number] Name: MICHELLE JULES Rep #:[id number] 9 : 1965 59 From: Hang Sanders [facility] PCP: Dr. Lisseth Peñaloza MD Status:ADM IN Y Location: [place] [address] Consult Antibiotic Management Pharmacy has been consulted [...] 0530) 11/23/24 1832 <Electronically signed by [facility]> Date _ Hang Powers [facility] Cosigner Signature (if applicable): Date CC: ~ Signed [facility] Work Phone: [phone] Consult [facility] Note Date/Time November 23, 2024 1:16p m [facility] Medical Records Department [address] [place] [address] Consultation - Infectious Dx 11/23/24 1311 MR#: [id number] Acct: [id number] Name: MICHELLE JULES Rep #:[id number] 6 : 1965 59 From: Michel olivarez MD PCP: Dr. Lisseth Peñaloza MD Status:ADM IN Location: [place] [address]- Assessment & Plan Assessment/Plan (1) MRSA bacteremia: [...] performed and neg except as noted above. [facility] Medical History MRSA (methicillin resistant staph [...] ea 10/15/24 Unknown Rx (FreeStyle Lance 3 [place]) 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 sensor (FreeStyle #2 ea 10/15/24 Unknown [...] Neut % (Auto) 65.1, Lymph % (Auto) 22.9,[place] % (Auto) 8.8, Eos % (Auto) 2.4, [...] applicable): CC: Dr. Lisseth Peñaloza MD~ Signed [facility] Work Phone: [phone] Progress note Author Kasandra Hinkle [facility] Note Date/Time November 23, 2024 12:53 pm [facility] Medical Records Department [address] [place] [address] Progress Note - Cardiology 11/23/24 0746 MR#: [id number] Acct: [id number] Name: MICHELLE JULES Rep #:[id number] 1 : 1965 59 From: Kasandra Hinkle MD PCP: Dr. Lisseth Peñaloza MD Status:ADM IN Location: [place] [address]- Subjective Subjective Patient resting comfortable in the [...] Neut % (Auto) 65.1, Lymph % (Auto) 22.9,[place] % (Auto) 8.8, Eos % (Auto) 2.4, [...] % (Auto) 65.1, Lymph % (Auto) 22.9, [place] % (Auto) 8.8, Eos % (Auto) 2.4, [...] had poor windows shows an EF of [id number]%. The patient has RESISTOR INSPECTOR-D device in place. The patient is on [...] of internal cardiac defibrillator: PLAN: Patient has RESISTOR INSPECTOR-D device in place. Her rate is 62 atrial sinus rate whichis tracked by the BiV pacer. PLAN: Plan 1. Continue current antibiotic therapy. No obvious site of intracardiac infection. Charges/Coding Visit Charges Inpatient E&M: 11470 Subs Hosp L2 11/23/24 1253 <Electronically signed by Kasandra Hinkle MD> Cosigner Signature (if applicable): CC: ~ Signed [facility] Work Phone: [phone] 218-152905-12-2025 Progress note Author Haider Smith [facility] Note Date/Time November 23, 2024 12:17 pm [facility] Medical Records Department [address] [place] [address] Progress Note - Hospitalist 11/23/24 0726 MR#: [id number] Acct: [id number] Name: MICHELLE JULES Rep #:[id number] 2 : 1965 59 From: Haider Smith DO PCP: Dr. Lisseth Peñaloza MD Status:ADM IN Location: [place] [address] Reason for Visit Reason for Visit: Diagnoses [...] Neut % (Auto) 65.1, Lymph % (Auto) 22.9,[place] % (Auto) 8.8, Eos % (Auto) 2.4, [...] prophylaxis: LMWH Charges/Coding Visit Charges Inpatient E&M: 09091 Subs Hosp L2 11/23/24 1217 <Electronically signed by Haider Smith DO> Cosigner Signature (if applicable): CC: ~ Signed [facility] Work Phone: [phone]) 189-594805-11-2025 Progress note Author Haider Smith [facility] Note Date/Time November 22, 2024 1:36p m [facility] Medical Records Department [address] [place], [place] [address] [address] Progress Note - Hospitalist 11/22/24 0801 MR#: [id number] Acct: [id number] Name: MICHELLE JULES Rep #:[id number] 1 : 1965 59 From: Haider Smith DO PCP: Dr. Lisseth Peñaloza MD Status:ADM IN Location: [place] [address] Reason for Visit Reason for Visit: Diagnoses [...] % (Auto) 67.4, Lymph % (Auto) 21.6, [place] % (Auto) 9.1, Eos % (Auto) 0.6, [...] of ICU. Charges/Coding Visit Charges Inpatient E&M: 76448 Subs Hosp L2 11/22/24 1336 <Electronically signed by Haider Smith DO> Cosigner Signature (if applicable): CC: ~ Signed [facility] Work Phone: [phone] Consult note Author Radha Dumont [facility] Note Date/Time November 22, 2024 12:43 pm [facility] Medical Records Department [address] [facility] [place] [address] Consultation - Cardiology 11/22/24 1236 MR#: [id number] Acct: [id number] Name: MICHELLE JULES Rep #:[id number] 9 : 1965 59 From: Radha Dumont MD PCP: Dr. Lisseth Peñaloza MD Status:ADM IN Location: [place] [id number]- 1 Assessment & Plan Assessment/Plan (1) MRSA bacteremia: PLAN: Patient blood culture is reported as positive for MRSA. No source identified so far. She has a RESISTOR INSPECTOR-D device. I would recommend checking a KANDY [...] history significant for nonischemic cardiomyopathy status post RESISTOR INSPECTOR?D, diabetes mellitus, morbid obesity and hypertension. The [...] Denies orthopnea or PND. No ankle edema. [facility] Medical History Cardiomyopathy, ischemic Vitamin D [...] ea 10/15/24 Unknown Rx (FreeStyle Lance 3 [place]) 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 sensor (FreeStyle #2 ea 10/15/24 Unknown [...] 11/22/24 11:00 11/22/24 11:00 11/22/24 11:00 11/22/24 11:11/22/24 10:00 Oxygen Flow Rate (L/min) 2 Oxygen [...] % (Auto) 67.4, Lymph % (Auto) 21.6, [place] % (Auto) 9.1, Eos % (Auto) 0.6, [...] % (Auto) 67.4, Lymph % (Auto) 21.6, [place] % (Auto) 9.1, Eos % (Auto) 0.6, [...] applicable): CC: Dr. Lisseth Peñaloza MD~ Signed [facility] Work Phone: [phone]) [phone] Progress note Author Pedro Luis Lal [facility] Note Date/Time November 22, 2024 9:36a m [facility] Medical Records Department [address] [facility] [place] [address] Progress Note - Head Of Business Development 11/22/24931 MR#: [id number] Acct: [id number] Name: MICHELLE JULES Rep #:[id number] 0 : 1965 59 From: Pedro Luis [...] 11/20/24 19:30 11/21/24 21:02 IV 0 mls/hr .[id number] PRN Infusion Saline Flush Sodium Chloride 250 mls @ 15 mls/hr 11/20/24 19:30 IV .[id number] PRN Additional IVPB Infusion Norepinephrine Bitartrate 8 mg 250 mls @ 9.375 mls/hr 11/20/24 20:20 11/23/2503:28 / Sodium Chloride CONT INF Not Given .[id number] SARAH Protocol 5 MCG/MIN Vancomycin HCl 2,000 [...] Lidocaine 5% Patch TOPICAL 1 patch DAILY [facility] Administration Protocol Loratadine 10 mg 11/21/24 10:00 11/22/24 09:27 Loratadine 10 Mg Tablet PO 10 mg DAILY [facility] Administration Melatonin 10 mg 11/20/24 19:29 Melatonin [...] 40 Mg Tablet PO 40 mg BID [facility] Administration Pramipexole Dihydrochloride 0.25 mg 11/20/24 22:00 11/21/24 21:23 Pramipexole Di-Hcl 0.25 Mg Tablet PO 0.25 mg QHS [facility] Administration Senna/Docusate Sodium 2 tablet 11/20/24 19:29 Senna/Docusate Sodium 1 Tablet PO BID PRN PRN Constipation Sodium Chloride 10 - 40 ml 11/20/24 19:30 11/22/24 09:13 0.9% Saline Lock 10 Ml Syringe IV 10 ml UD PRN Administration SALINE FLUSH Vancomycin Protocol 1 lab 11/23/24 16:30 Vancomycin Trough/Random Due MC 11/23/24 18:30 DAILY [facility] Lab / Micro Data 11/22/24 04:40 [...] % (Auto) 67.4, Lymph % (Auto) 21.6, [place] % (Auto) 9.1, Eos % (Auto) 0.6, [...] Cosigner Signature (if applicable): CC: ~ Signed [facility] Work Phone: [phone] Consult note Author Haider Case [facility] Note Date/Time November 22, 2024 5:41a m [facility] Medical Records Department [address] [place] [address] Pharmacokinetic/Renal -Consult 11/22/24 0539 MR#: [id number] Acct: [id number] Name: MICHELLE JULES Rep #:[id number] 3 : 1965 59 From: Haider Case [...] Signature (if applicable): Date CC: ~ Signed [facility] Work Phone: [phone] Progress note Author Pedro Luis Lal [facility] Note Date/Time November 21, 2024 11:46 am [facility] Medical Records Department [address] [place] [address] Progress Note - Head Of Business Development 11/21/24 1141 MR#: [id number] Acct: [id number] Name: MICHELLE JULES Rep #:[id number] 3 : 1965 59 From: Pedro Luis [...] 11/20/24 19:30 11/21/24 05:46 IV 15 mls/hr .[id number] PRN Administration Saline Flush Sodium Chloride 250 mls @ 15 mls/hr 11/20/24 19:30 IV .[id number] PRN Additional IVPB Infusion Norepinephrine Bitartrate 8 mg 250 mls @ 9.375 mls/hr 11/20/24 20:20 11/21/2506:45 / Sodium Chloride CONT INF 0 mcg/min .[id number] SARAH 0 mls/hr Titration Protocol 5 MCG/MIN [...] 0.25 Mg Tablet PO 0.25 mg QHS [facility] Administration Senna/Docusate Sodium 2 tablet 11/20/24 19:29 Senna/Docusate Sodium 1 Tablet PO BID PRN PRN Constipation Sodium Chloride 10 - 40 ml 11/20/24 19:30 11/21/24 04:24 0.9% Saline Lock 10 Ml Syringe IV 10 ml UD PRN Administration SALINE FLUSH Vancomycin Protocol 1 lab 11/22/24 03:00 Vancomycin Trough/Random Due MC 11/22/24 05:00 DAILY [facility] Lab / Micro Data 11/21/24 04:01 11/21/24 04:01 Labs: Laboratory Results - last 24 hr 11/20/24 14:33: WBC 9.6, RBC 4.29, Hgb 12.6, Hct 38.8, MCV 90.4, MCH 29.4, MCHC 32.5, RDW Std Deviation 46.5 H, RDW Coeff of [place] 14.2, Plt Count 148 L, MPV 10.4, Immature Gran % (Auto) 0.700, Neut % (Auto) 89.4 H, Lymph % (Auto) 5.2 L, [place] % (Auto) 4.1, Eos % (Auto) 0.4, [...] Urine ClarityClear, Urine pH 6.0, Ur Specific [place] 1.015, Urine Protein Negative, Urine Glucose (UA) [...] 86.6 H, Lymph % (Auto) 7.5 L, [place] % (Auto) 4.7, Eos % (Auto) 0.1, [...] mucoperiosteal thickening, left maxillary sinus. Reading Location: [facility] Lumbar [facility]ine CT 11/20/24 14:29 IMPRESSION: No acute osseous abnormalities involving the lumbar spine. Severe degenerative disc disease at L5-S1. Mild spondylosis. Reading Location: [facility] Chest X-Ray 11/20/24 15:10 IMPRESSION: No Acute Findings. Reading Location: [facility] Abdomen/Pelvis CT 11/20/24 16:54 IMPRESSION: No acute intra-abdominal process. Trace pericardial effusion. Reading Location: [id number] Assessment and Plan . Assessment and plan: [...] as just came off pressors. 7. PX: mitax Pedro Luis Lal MD Critical Care Time: [...] Cosigner Signature (if applicable): CC: ~ Signed [facility] Work Phone: [phone] Progress note Author Haider Smith [facility] Note Date/Time November 21, 2024 11:00 am [facility] Medical Records Department [address] [place] [address] Progress Note - Hospitalist 11/21/24 0715 MR#: [id number] Acct: [id number] Name: MICHELLE JULES Rep #:[id number] 1 : 1965 59 From: Haider Smith [...] 89.4 H, Lymph % (Auto) 5.2 L, [place] % (Auto) 4.1, Eos % (Auto) 0.4, [...] Urine ClarityClear, Urine pH 6.0, Ur Specific [place] 1.015, Urine Protein Negative, Urine Glucose (UA) [...] 86.6 H, Lymph % (Auto) 7.5 L, [place] % (Auto) 4.7, Eos % (Auto) 0.1, [...] mucoperiosteal thickening, left maxillary sinus. Reading Location: [facility] Lumbar Spine CT 11/20/24 14:29 IMPRESSION: No acute osseous abnormalities involving the lumbar spine. Severe degenerative disc disease at L5-S1. Mild spondylosis. Reading Location: [facility] Chest X-Ray 11/20/24 15:10 IMPRESSION: No Acute Findings. Reading Location: [facility] Abdomen/Pelvis CT 11/20/24 16:54 IMPRESSION: No acute intra-abdominal process. Trace pericardial effusion. Reading Location: [id number] Physical Exam Narrative POCUS: indication shock. IVC [...] prophylaxis: LMWH Charges/Coding Visit Charges Inpatient E&M: 60626 Subs Hosp L3 11/21/24 1100 <Electronically signed by Haider Smith DO> Cosigner Signature (if applicable): CC: ~ Signed [facility] Work Phone: [phone]) [phone] Discharge summary Author Javy Saul [facility] Note Date/Time November 20, 2024 11:08p m [facility] Medical Records Department [address] [place] [address] Emergency Department Summary 11/20/24 MR#: [id number] Acct: [id number] Name: MICHELLE JULES Rep #:[id number] : 1965 59 From: Javy Garcia [...] ischemic cardiomyopathy and has an ICD (D[employer]agen RESISTOR INSPECTOR-D IS-1/DF4/IS-1). Reported last ejection fraction of 40% in 2023. This history was extremely difficult to obtain in that the patient often answersI do not know and her answers often conflicts each other. To the best my ability this is her history and I repeated it back to her and she states that that is correct. [facility] Medical History Cardiomyopathy, ischemic Vitamin [...] ea 10/15/24 Unknown Rx (FreeStyle Lance 3 [place]) 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 sensor (FreeStyle #2 ea 10/15/24 Unknown [...] 89.4 H Lymph % (Auto) 5.2 L [place] % (Auto) 4.1 Eos % (Auto) 0.4 [...] Clarity Clear Urine pH 6.0 Ur Specific [place] 1.015 Urine Protein Negative Urine Glucose (UA) [...] mucoperiosteal thickening, left maxillary sinus. Reading Location: [facility] Lumbar [facility] CT 11/20/24 14:29 IMPRESSION: No acute osseous abnormalities involving the lumbar spine. Severe degenerative disc disease at L5-S1. Mild spondylosis. Reading Location: [facility] Chest X-Ray 11/20/24 15:10 IMPRESSION: No Acute Findings. Reading Location: [employer] [employer] EKG Initial EKG: Attestation: I personally reviewed and interpreted this EKG as follows: Comments: AV paced at 120 bpm Prior EKG tracings: available for review Prior: Unchanged Discharge Plan Dx/Rx/DC Orders Clinical Impression: Acute febrile illness, Low back pain, Cardiomyopathy, ischemic, Sepsis Disposition Disposition: Acute Care Hospital [facility] What to do if you have Problems For any increased pain, shortness of breath, bleeding, nausea or vomiting, chestpain, or any unexpected problems, contact your Primary Care Provider. Call [facility] ([phone]) or report to the closest Emergency Room. Call 911 if necessary. 11/20/242307 <Electronically signed by Javy Saul DO> Cosigner Signature (if applicable): CC: Dr. Lisseth Peñaloza MD ~ Signed [facility] Work Phone: [phone] Consult note Author Jesus Varela [facility] Note Date/Time November 20, 2024 9:49pm [facility] Medical Records Department [address] [place] [address] Consultation - Head Of Business Development 11/20/242140 MR#: [id number] Acct: [id number] Name: MICHELLE JULES Rep #:[id number] 1 : 1965 59 From: Jesus Varela [...] LA remains elevated at a level ~2.4. [facility] Medical History Cardiomyopathy, ischemic Vitamin D [...] ea 10/15/24 Unknown Rx (FreeStyle Lance 3 [place]) 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 sensor (FreeStyle #2 ea 10/15/24 Unknown [...] Atorvastatin Calcium 10 Mg Tablet PO DAILY [facility] Carvedilol 6.25 mg 11/20/24 22:00 Carvedilol 6.25 Mg Tablet PO BID [facility] Protocol Duloxetine HCl 60 mg 11/20/24 22:00 Duloxetine Hcl 60 Mg Capsule PO BID [facility] Enoxaparin Sodium 40 mg 11/20/24 22:00 Enoxaparin 40 Mg/0.4 Ml Syringe SC BID [facility]AH Gabapentin 300 mg 11/21/24 10:00 Gabapentin 300 Mg Capsule PO DAILY [facility] Glucagon 1 mg 11/20/24 19:29 Glucagon 1 [...] 11/20/24 19:30 11/20/24 20:43 IV 15 mls/hr .[id number] PRN Administration Saline Flush Sodium Chloride 250 mls @ 15 mls/hr 11/20/24 19:30 IV .[id number] PRN Additional IVPB Infusion Norepinephrine Bitartrate 8 mg 250 mls @ 9.375 mls/hr 11/20/24 20:20 / Sodium Chloride CONT INF .[id number] [facility] Protocol 5 MCG/MIN Vancomycin HCl 1,750 mg/ 535 mls @ 250 mls/hr 11/21/24 04:30 Sodium Chloride IV Q12H [facility] Insulin Glargine 20 unit 11/20/24 22:00 Insulin Glargine-Yfgn 100 Unit/Ml Pen SC BID [facility] Insulin Human Lispro 0 unit 11/20/24 22:00 11/20/24 20:43 Insulin Lispro 100 Unit/Ml Insuln.Pen SC Not Given ACHS [facility] Protocol Iopamidol 0 ml 11/20/24 17:00 11/20/24 20:04 Contrast Allergy Safety Check IV Not Given X1 [facility] Lidocaine 1 patch 11/21/24 10:00 Lidocaine 5% Patch TOPICAL DAILY [facility] Protocol Loratadine 10 mg 11/21/24 10:00 Loratadine 10 Mg Tablet PO DAILY [facility] Melatonin 10 mg 11/20/24 19:29 Melatonin [...] Pantoprazole Sodium 40 Mg Tablet PO BID [facility] Pramipexole Dihydrochloride 0.25 mg 11/20/24 22:00 Pramipexole Di-Hcl 0.25 Mg Tablet PO QHS [facility] Sacubitril/Valsartan 1 each 11/20/24 22:00 Sacubitril/Valsartan 24/26 Mg Tablet PO BID [facility] Senna/Docusate Sodium 2 tablet 11/20/24 19:29 Senna/Docusate Sodium 1 Tablet PO BID PRN PRN Constipation Sodium Chloride 10 - 40 ml 11/20/24 19:30 11/20/24 20:42 0.9% Saline Lock 10 Ml Syringe IV 10 ml UD PRN Administration SALINE FLUSH Vancomycin Protocol 1 lab 11/22/24 03:00 Vancomycin Trough/Random Due 11/22/24 05:00 DAILY [facility] Physical Exam Const alert, oriented x3 [...] 89.4 H, Lymph % (Auto) 5.2 L, [place] % (Auto) 4.1, Eos % (Auto) 0.4, [...] Urine ClarityClear, Urine pH 6.0, Ur Specific [place] 1.015, Urine Protein Negative, Urine Glucose (UA) [...] mucoperiosteal thickening, left maxillary sinus. Reading Location: [facility] Lumbar Spine CT 11/20/24 14:29 IMPRESSION: No acute osseous abnormalities involving the lumbar spine. Severe degenerative disc disease at L5-S1. Mild spondylosis. Reading Location: [facility] Chest X-Ray 11/20/24 15:10 IMPRESSION: No Acute Findings. Reading Location: [facility] Abdomen/Pelvis CT 11/20/24 16:54 IMPRESSION: No acute intra-abdominal process. Trace pericardial effusion. Reading Location: [facility] Reviewed personally as well Assessment and Plan [...] of this encounter was done via Telemedicine 11/20/24 <Electronically signed by Jesus Varela MD> Cosigner Signature (if applicable): CC: Dr. Lisesth Peñaloza MD~ Signed [facility] Work Phone: 1([phone]) 404-130605-09-2025 History and physical note Author Mariah Brewer [facility] Note Date/Time November 20, 2024 7:16pm [facility] Medical Records Department [address] [place] [address] H&P Exam - Hospitalist 11/20/24 1700 MR#: [id number] Acct: [id number] Name: MICHELLE JULES Rep #:[id number] 9 : 1965 59 From: Mariah Brewer MD PCP: Dr. Lisseth Peñaloza MD Status:ADM IN Location: ICU ICU01-1 HPI - General General Date of Admission: 11/20/24 Date of Service: 11/20/24 Chief Complaint: Back pain, fever HPI Narrative MICHELLE JULES, is a 59-year-old female with history of ischemic cardiomyopathy with pacer defibrillator placement, diabetes, and GERD who presented to [facility] ED 11/20/2024 due to complaints of back [...] intra-abdominal process, did note distended urinary bladder [facility] Medical History Cardiomyopathy, ischemic Vitamin D [...] Unkno wn Rx mL 31 gauge x 11/27 (BD Insulin Syringe Ultra-Fine) sacubitril 24 mg-valsartan 26 mg 1 tab PO BID #60 tabs 06/03/24 Unknown Rx tablet (Entresto) blood sugar diagnostic (OneTouch #100 ea 10/15/24 Unkn own Rx Verio test strips) 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 meter (OneTouch #1 ea 10/15/24 Unknown R x Verio Reflect Meter) 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 meter,continuous #1 ea 10/15/24 Unknown Rx (FreeStyle Lance 3 [place]) 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 sensor (FreeStyle #2 ea 10/15/24 Unknown [...] 89.4 H, Lymph % (Auto) 5.2 L, [place] % (Auto) 4.1, Eos % (Auto) 0.4, [...] Clarity Clear, Urine pH 6.0, Ur Specific [place] 1.015, Urine Protein Negative, Urine Glucose (UA) [...] mucoperiosteal thickening, left maxillary sinus. Reading Location: [facility] Lumbar [facility] CT 11/20/24 14:29 IMPRESSION: No acute osseous abnormalities involving the lumbar spine. Severe degenerative disc disease at L5-S1. Mild spondylosis. Reading Location: [facility] Chest X-Ray 11/20/24 15:10 IMPRESSION: No Acute Findings. Reading Location: [facility] Abdomen/Pelvis CT 11/20/24 16:54 IMPRESSION: No acute intra-abdominal process. Trace pericardial effusion. Reading Location: [facility] Assessment & Plan Assessment/Plan (1) Sepsis: PLAN: [...] data arises - Will check ESR, CRP, Pro-Erasmo and repeat these in the a.m. to [...] documentation, 62Minutes Charges/Coding Visit Charges Inpatient E&M: 68257 Init Hosp L3 11/20/241902 <Electronically signed by [...] MD; Dr. Mariah Brewer MD ~* Signed [facility] Work Phone: 1(804) 796-815905-09-2025 Progress note Author Mariah Brewer [facility] Note Date/Time November 20, 2024 7:14pm [facility] Medical Records Department [address] [place] [address] Progress Note - Hospitalist 11/20/24 1806 MR#: [id number] Acct: [id number] Name: MICHELLE JULES Rep #:[id number] 4 : 1965 59 From: Mariah Brewer [...] Cosigner Signature (if applicable): cc: ~* Signed [facility] Work Phone: 1(196) 817-891705-09-2025 Radiology Diagnostic study note [facility] Imaging Services [address] [place], [place] [address] Abdomen/Pelvis W IV Cont ONLY MR#: [id number] Acct: [id number] Name: MICHELLE JULES Rep #: [id number] : 1965 F 59 From: Carmen Denton MD PCP: Dr. Lisseth ePñaloza MD Status: ADM IN Study:Abdomen/Pelvis W IV Cont ONLY Date of E xam: 11/20/24 Exam# [id number] Ordering Dr: Naomi Saul DO PROCEDURE: ABDOMEN/PELVIS [...] intra-abdominal process. Trace pericardial effusion. Reading Location: [facility] CC: Dr. Lisseth Peñaloza MD; Dr. Javy Saul DO ~ Classer: Signed [facility]05-09-2025 Radiology Diagnostic study note [facility] Imaging Services [address] [place] [address] Spine Lumbar without Contrast MR#: [id number] Acct: [id number] Name: MICHELLE JULES Rep #: [id number] : 1965 F 59 From: Vidhya Hughes MD PCP: Dr. Lisseth Peñaloza MD Status: REG ER Study:Spine Lumbar without Contrast Date of E xam: 11/20/24 Exam# [id number] Ordering Dr: Naomi Saul DO PROCEDURE: SPINE [...] Peñaloza MD; Dr. Javy Saul DO ~ Classer: Signed [facility]05-09-2025 Radiology Diagnostic study note [facility] Imaging Services [address] [place], [place] [address] Brain/Head without Contrast MR#: [id number] Acct: [id number] Name: MICHELLE JULES Rep #: [id number] : 1965 F 59 From: Vidhya Hughes MD PCP: Dr. Lisseth Peñaloza MD Status: REG ER Study:Brain/Head without Contrast Date of Exa m: 11/20/24 Exam# [id number] Ordering Dr: Naomi Saul DO PROCEDURE: BRAIN/HEAD [...] Peñaloza MD; Dr. Javy Saul DO ~ Classer: Signed [facility]05-09-2025 Radiology Diagnostic study note [facility] Imaging Services [address] [place] [address] Chest 1 View (Portable) MR#: [id number] Acct: [id number] Name: MICHELLE JULES Rep #: [id number] : 1965 F 59 From: Vidhya Hughes MD PCP: Dr. Lisseth Peñaloza MD Status: REG ER Study:Chest 1 View (Portable) Date of Exam: 11/20/24 Exam# [id number] Ordering Dr: Naomi Saul DO PROCEDURE: CHEST [...] Peñaloza MD; Dr. Javy Saul DO ~ Classer: Signed [facility]04-03-2025 Evaluation note* Diagnosis Onset Date Resolution Status Admit Date HTN (hypertension) chronic October 15, 2024 10:04am [...] cardiomyopathy acute November 09, 2024 10:07am Implantable cardioverter-defibrillator (ICD) in situ inactive November 09, 2024 [...] neuropathy, unspecified chronic December 10, 2024 10:21am Hx of bacteremia acute December 8:28pm MRSA bacteremia acute December 20, 2024 8:28pm [facility] Work Phone: 1(976) 575-922104-03-2025 Evaluation note* Diagnosis Onset Date Resolution Status Admit Date HTN (hypertension) chronic October 15, 2024 10:04am [...] cardiomyopathy acute November 09, 2024 10:07am Implantable cardioverter-defibrillator (ICD) in situ inactive November 09, 2024 [...] neuropathy, unspecified chronic December 10, 2024 10:21am Hx of bacteremia acute December 8:28pm MRSA bacteremia acute December 20, 2024 8:28pm Perla infection acute February 032024 10:49am HTN (hypertension) chronic January 132024 10:49am Type 2 diabetes mellitus with diabetic neuropathy, unspecified chronic February 03, 2025 10:49am [facility] Work Phone: 1(359) 505-894304-03-2025 Evaluation note* Diagnosis Onset Date Resolution Status Admit Date HTN (hypertension) chronic October 15, 2024 10:04am [...] cardiomyopathy acute November 09, 2024 10:07am Implantable cardioverter-defibrillator (ICD) in situ inactive November 09, 2024 [...] neuropathy, unspecified chronic December 10, 2024 10:21am Hx of bacteremia acute December 8:28pm MRSA bacteremia acute December 20, 2024 8:28pm Perla infection acute February 032024 10:49am Hx of bacteremia acute January 10:49am HTN (hypertension) chronic January 132024 10:49am Type 2 diabetes mellitus with diabetic neuropathy, unspecified chronic February 03, 2025 10:49am Nonischemic dilated cardiomyopathy acute February 04, 2025 10:58am HTN (hypertension) chronic January 132024 10:58am History of placement of internal cardiac defibrillator September 03, 2013 inactive February 04 10:58am [facility] Work Phone: 1(806) 202-296202-24-2025 Evaluation note* Diagnosis Onset Date Resolution Status [...] Nonischemic cardiomyopathy inactive November 20, 2024 6:37pm [facility] Work Phone: 1(654) 626-499302-24-2025 Evaluation note* Diagnosis Onset Date Resolution Status [...] MRSA bacteremia acute December 09, 2024 11:01am [facility] Work Phone: 1(689) 549-201902-24-2025 Evaluation note* Diagnosis Onset Date Resolution Status Admit Date Anxiety acute September 07, 2024 11:11am GERD (gastroesophageal reflux disease) acute September 07 11:11am RLS (restless legs syndrome) acute September 07 11:11am Vitamin D deficiency acute 2024 11:11am HTN (hypertension) chronic 2024 11:11am Type 2 diabetes mellitus with diabetic neuropathy, unspecified chronic February 24th, 2 025 11:11am Cardiomyopathy, ischemic inactive September 07, 2024 [...] neuropathy, unspecified chronic December 10, 2024 10:21am [facility] Work Phone: 1(301) 546-261302-24-2025 Evaluation note* Diagnosis Onset Date Resolution Status Admit Date Anxiety acute September 07, 2024 11:11am GERD (gastroesophageal reflux disease) acute September 07 11:11am RLS (restless legs syndrome) acute September 07 11:11am Vitamin D deficiency acute uary 2024 11:11am HTN (hypertension) chronic 2024 11:11am [...] neuropathy, unspecified chronic December 10, 2024 10:21am MRSA bacteremia acute December 20, 2024 8:28pm [facility] Work Phone: 1(154) 801-900002-24-2025 Evaluation note* Diagnosis Onset Date Resolution Status [...] neuropathy, unspecified chronic December 10, 2024 10:21am Hx of bacteremia acute December 8:28pm MRSA bacteremia acute December 20, 2024 8:28pm [facility] Work Phone: 1(918) 494-289001-22-2025 Evaluation note* Diagnosis Onset Date Resolution Status [...] care with new doctor, encounter for noneactive Januar y 2024 2:11pm Screening for malignant neoplasm of cervix noneactive August 05, 2024 2:11pm Screening for breast cancer noneactive August 05 2:11pm Anxiety acute September 07, 2024 11:11am Cardiomyopathy, ischemic acute September 07, 2024 11:11am GERD (gastroesophageal reflux disease) acute September 07, 2 025 11:11am RLS (restless legs syndrome) acute September 07, 2 025 11:11am Vitamin D deficiency acute ua2024 11:11am HTN (hypertension) chronic Februa ry 2024 11:11am Type 2 diabetes mellitus [...] 4:25pm Sepsis acute November 20, 2024 4:25pm [facility] Work Phone: 1(752) 505-165401-22-2025 Evaluation note* Diagnosis Onset Date Resolution Status Admit Date Anxiety acute August 05, 2024 2:11pm Cardiomyopathy, ischemic acute August 05, 2024 2:11pm GERD (gastroesophageal reflux disease) acute August 05 2:11pm RLS (restless legs syndrome) acute August 05 2:11pm Vitamin D deficiency acute Rishi helena 2024 2:11pm HTN (hypertension) chronic Juluar y 2024 2:11pm Type 2 diabetes mellitus [...] GERD (gastroesophageal reflux disease) acute September 07 025 11:11am RLS (restless legs syndrome) acute September 07 025 11:11am Vitamin D deficiency acute ua2024 11:11am HTN (hypertension) chronic ua ry 2024 11:11am Type 2 diabetes mellitus with diabetic neuropathy, unspecified chronic September 07 025 11:11am PAXTON (obstructive sleep apnea) noneactive September 07 11:11am HTN (hypertension) chronic October 15, 2024 10:04am Hyperlipidemia chronic October 15, 2024 10:04am Neuropathy chronic October 15 10:04am Obesity chronic October 15 10:04am Type 2 diabetes mellitus with diabetic neuropathy, unspecified chronic October 15, 2024 10:04am Vaginal yeast infection chronic A pri2024 10:04am Anxiety acute October 19 10:11am Cardiomyopathy, [...] 6:37pm Shock acute November 20, 2024 6:37pm [facility] Work Phone: 1(104) 355-143110-25-2024 NoteHNO ID: [id number] Author: JEANIE MURPHY RN Service: ? Author [...] patient. 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 - cetirizine (ZYRTEC) 10 mg tablet Take 1 tablet by mouth once daily as needed (for itching, sneezing or runny nose). - losartan (COZAAR) 25 mg tablet (Discontinued) Take 1 tablet by mouth once daily. - blood sugar diagnostic (LaunchTrack ULTRA TEST) test strip USE TO TEST [...] with p (more content not included)...[facility] 04-10-2024 Telephone encounter Note* Telephone Encounter - Maria A Martinez - 04/10/2024 3:31 PM EDT Patient's insurance no longer covers office. Removing CFM from profile Maria A [facility]09-27-2024 Miscellaneous Notes* Telephone Encounter - Maria A Martinez - 04/10/2024 3:31 PM EDT Patient's insurance no longer covers office. Removing CFM from profile Maria A documented in [facility] encounterMer[facility]09-[facility]-2024 Telephone encounter Note * Telephone Encounter - Williams Rubin MD - 04/08/2024 6:18 PM EDT Only 1 month refills because patient is overdue on Cr, K, and Lipid panel. BMP and LP ordered. Williams Rubin MD [facility]09-25-2024 Miscellaneous Notes* Telephone Encounter - Williams Rubin [...] Itching Simvastatin Other: See Comments myalgia (home) [phone] (cell) Last Office Visit Date: 02/26/2024 Last Distance Health Visit: Visit date not found Future Appointment: 04/14/2024 The patients preferred pharmacy has been captured for this encounter? yes Request is for script(s) to be escript to pharmacy. Janet Nassar LPN documented in this encounterMercer [facility]09-24-2024 Telephone encounter Note * Telephone Encounter - [...] Itching Simvastatin Other: See Comments myalgia (home) [phone] (cell) Last Office Visit Date: 02/26/2024 Last [facility] Visit: Visit date not found Future Appointment: 04/14/2024 The patients preferred pharmacy has been captured for this encounter? yes Request is for script(s) to be escript to pharmacy. Janet Nassar LPN [facility]09-20-2024 NoteHNO ID: [id number] Author: JEANIE MURPHY RN Service: ? Author Type: Registered Nurse Type: Progress Notes Filed: 04/03/2024 13:00 Note Text: PRIMARY CARE COORDINATION QUICK NOTE Provider Action/FYI Patient identified by name and date . PCC tried to contact patient for patient outreach. PCC left phone number [phone] for patient to contact PCC. Jeanie Murphy RN April 03, 2024 1:00 [facility]09-20-2024 History of Present illness Narrative* Jeanie Murphy RN - 04/03/2024 12:59 PM EDT PRIMARY CARE COORDINATION QUICK NOTE Provider Action/FYI Patient identified by name and date . PCC tried to contact patient for patient outreach. PCC left phone number [phone] for patient to contact PCC. Jeanie Murphy RN April 03, 2024 1:00 PM documented in this encounterMercer [facility]09-20-2024 Telephone encounter Note * Telephone Encounter - Radha Bradley - 04/03/2024 10:03 AM EDT No Show Documentation Michelle Jules no showed for an appointment on 04.02.24 with Sonia Carrera RPh at [facility]. She was scheduled for follow up. I [...] Radha Bradley April 03, 2024 10:06 AM [facility]09-20-2024 Miscellaneous Notes* Telephone Encounter - Radha Bradley - 04/03/2024 10:03 AM EDT No Show Documentation Michelle Jules no showed for an appointment on 04.02.24 with Sonia Carrera RPh at [facility]. She was scheduled for follow up. I [...] 03, 2024 10:06 AM documented in this encounterMercer County [facility]09-20-2024 NotePatient Outreach (AGACM) MICHELLE JULES ([id number]) 1965 F Date Time Provider Department 04/03/24 JEANIE MURPHY [facility] During your visit today, we recorded the following information about you: Jeanie Murphy RN 04/03/2024 1:00 PM Signed PRIMARY CARE COORDINATION QUICK NOTE Provider Action/FYI Patient identified by name and date . PCC tried to contact patient for patient outreach. PCC left phone number [phone] for patient to contact PCC. 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 - cetirizine (ZYRTEC) 10 mg tablet Take 1 tablet by mouth once daily as needed (for itching, sneezing or runny nose). - losartan (COZAAR) 25 mg tablet (Discontinued) Take 1 tablet by mouth once daily. - blood sugar diagnostic (Broadcast [employer] Weather [employer] Channel Branding Graphics Display SystemUCH ULTRA TEST) test strip USE TO TEST [...] Status:Closed by JEANIE MURPHY on 04/03/24[facility] 04-02-2024 NoteHNO ID: [id number] Author: SONIA CARRERA RPh Service: ? Author Type: Pharmacist Type: Progress Notes Filed: 04/02/2024 14:41 Note Text: Pt no showed appt with pharmD 04/02/2024. Notifying rn home care to reschedule. Appreciate collaboration. Hemoglobin A1C Date Value Ref Range Status 01/29/2024 10.2 (H) 4.3 - 5.6 % Final Comment: [place] [employer] guidelines indicate that patients with HgbA1c in the range 5.7-6.4% are at increased risk for development of diabetes, and intervention by lifestyle modification may be beneficial. HgbA1c greater or equal to 6.5% is considered diagnostic of diabetes.[facility] 03-21-2024 NoteHNO ID: [id number] Author: SONIA CARRERA RPh Service: ? Author Type: Pharmacist Type: Progress Notes Filed: 03/21/2024 12:05 Note Text: No further adjustments warranted at this time. Appreciate rn home care's f/up on this content. PharmD appt 04/02/2024. Sonia Carrera, [facility]09-06-2024 NoteHNO ID: [id number] Author: JEANIE MURPHY RN Service: ? Author [...] a trulicity. PCC instructed patient to call [phone] with any questions or concerns. Jeanie Murphy RN March 20, 2024 9:03 [facility]09-05-2024 NoteHNO ID: [id number] Author: SONIA CARRERA [facility] Service: ? Author Type: Pharmacist Type: Progress Notes Filed: 03/19/2024 20:54 Note Text: Per pharmacy dispense report, filled 02/25/2024 for pack of 4 (~1 month supply). I'm not fully understanding what the issue with access is. Can we please call pharmacy for clarification. Sonia Carrera, [facility]09-05-2024 NoteHNO ID: [id number] Author: JEANIE MURPHY RN Service: ? Author [...] sensor. PCC provided patient with [employer] assistance number. Patient said blood sugar weekly [...] Topic Date Due Dilated Retinal Exam 04/05/2024 Eating Disorder Psychologist plan for next outreach: Will follow-up 3 weeks Signature: Jeanie Murphy RN March 19[facility]09-[facility] History of Present illness Narrative* [...] Topic Date Due Dilated Retinal Exam 04/05/2024 Eating Disorder Psychologist plan for next outreach: Will follow-up 3 weeks Signature: Jeanie Murphy RN March 19, 2024 documented in this encounterMercer [facility]09-05-2024 NoteHNO ID: [id number] Author: JEANIE MURPHY RN Service: ? Author Type: Registered Nurse Type: Progress Notes Filed: 03/19/2024 12:52 Note Text: PRIMARY CARE COORDINATION QUICK NOTE Provider Action/FYI Patient identified by name and date . PCC tried to contact patient for patient outreach. PCC left phone number [phone] for patient to contact PCC. Jeanie Murphy RN March 19, 2024 12:51 [facility]09-05-2024 History of Present illness Narrative* Jeanie Murphy RN - 03/19/2024 12:48 PM EDT PRIMARY CARE COORDINATION QUICK NOTE Provider Action/FYI Patient identified by name and date . PCC tried to contact patient for patient outreach. PCC left phone number [phone] for patient to contact PCC. Jeanie Murphy RN March 19, 2024 12:51 PM documented in this encounterMercer [facility]09-05-2024 NotePatient Outreach (AGACM) MICHELLE JULES ([id number]) 1965 F Date Time Provider Department 03/19/24 JEANIE MURPHY [facility] During your visit today, we recorded the [...] Topic Date Due Dilated Retinal Exam 04/05/2024 Eating Disorder Psychologist plan for next outreach: Will follow-up 3 [...] a trulicity. PCC instructed patient to call [phone] with any questions or concerns. Jeanie Murphy RN March 20, 2024 9:03 AM Sonia Carrera RPh 03/21/2024 12:05 PM Signed No further adjustments warranted at this time. Appreciate rn home care's f/up on this content. PharmD appt 04/02/2024. Marcos Giron Megan, RPh 04/02/2024 2:41 PM Signed Pt no showed appt with pharmD 04/02/2024. Notifying rn home care to reschedule. Appreciate collaboration. 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 PCC tried to contact patient for patient outreach. PCC left phone number [phone] for patient to contact PCC. 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 - cetirizine (ZYRTEC) 10 mg tablet Take 1 tablet by mouth once daily as needed (for itching, sneezing or runny nose). - losartan (COZAAR) 25 mg tablet (Discontinued) Take 1 tablet by mouth once daily. - blood sugar diagnostic (Broadcast Grade Weather [employer] Channel Branding Graphics Display SystemUCH ULTRA TEST) test strip USE TO TEST [...] Status:Closed by JEANIE MURPHY on 03/19/24[facility] 03-09-2024 Telephone encounter Note* Telephone Encounter [...] Itching Simvastatin Other: See Comments myalgia (home) [phone] (cell) Last Office Visit Date: 02/26/2024 Last [facility] Visit: Visit date not found Future Appointment: 04/02/2024 The patients preferred pharmacy has been captured for this encounter? yes Request is for script(s) to be escript to pharmacy. Chelsy Eckert LPN [facility]08-26-2024 Miscellaneous Notes* Telephone Encounter - Chelsy Eckert [...] Itching Simvastatin Other: See Comments myalgia (home) [phone] (cell) Last Office Visit Date: 02/26/2024 Last [facility] Visit: Visit date not found Future Appointment: 04/02/2024 The patients preferred pharmacy has been captured for this encounter? yes Request is for script(s) to be escript to pharmacy. Chelsy Eckert LPN documented in this encounterMercer [facility]08-24-2024 Telephone encounter Note * Telephone Encounter - Williams Rubin MD - 03/07/2024 9:30 AM EDT Needs BMP for Lasix refill. Williams Rubin MD [facility]08-24-2024 Miscellaneous Notes* Telephone Encounter - Williams Rubin MD - 03/07/2024 9:30 AM EDT Needs BMP for Lasix refill. Williams Rubin MD documented in this encounterMercer County Community Hospital08-20-2024 NoteHNO ID: [id number] Author: WILLIAMS RUBIN MD Service: ? Author Type: Resident Type: Progress Notes Filed: 03/03/2024 12:40 Note Text: Thank you so much, Jeanie! Williams Rubin, [facility]08[facility] History of Present illness Narrative* Williams [...] for patient to call PCC back at [phone]. Jeanie Murphy RN March 03, 2024 11:53 AM documented in this encounterMercer County [facility] Hospital08-20-2024 NoteHNO ID: [id number] Author: JEANIE MURPHY RN Service: ? Author [...] for patient to call PCC back at [phone]. Jeanie Murphy RN March 03, 2024 11:53 [facility]08-20-2024 NotePatient Outreach ([facility]) MICHELLE JULES ([id number]) 1965 F Date Time Provider Department 03/03/24 JEANIE MURPHY [facility] During your visit today, we recorded the [...] for patient to call PCC back at [phone]. 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 - flash glucose sensor (Soup.ioSTYLE LANCE 2 SENSOR) kit Use to check blood sugar before meals and at bedtime - Docusate Sodium (STOOL SOFTENER) 100 mg tab Take 1 capsule by mouth twice daily as needed - acetylcyst/htphkbY66/levomefol (METAFOLBIC PLUS ORAL) Take by mouth. - furosemide (LASIX) 40 mg tablet Take 1 tablet by mouth once daily. - cetirizine (ZYRTEC) 10 mg tablet Take 1 tablet by mouth once daily as needed (for itching, sneezing or runny nose). - losartan (COZAAR) 25 mg tablet (Discontinued) Take 1 tablet by mouth once daily. - blood sugar diagnostic (SimpliFieldTOUCH ULTRA TEST) test strip USE TO TEST [...] Status:Closed by JEANIE MURPHY on 03/03/24[facility] 03-02-2024 NoteHNO ID: [id number] Author: JAMIE AGGARWAL DO Service: ? Author [...] for furthur details. Jamie Aggarwal, [facility]08-19-2024 History of Present illness Narrative* Jamie [...] details. Jamie Aggarwal DO * Sonia Carrera, [facility] - 02/26/2024 2:08 PM EDT REASON FOR [...] no pitting edema in legs noted per mortgage or loan underwriter Regimen as below Confirms insulin pen goes [...] gym - cost limits option Working on Vocollect application Past medical, family and social history reviewed and updated. Payor: [employer] [employer] / Plan: [place] [facility] / Product Type: Medicaid / REVIEW OF SYSTEMS Review of Systems Constitutional: Negative for chills and fever. VITALS: BP 125/78 Pulse 72 Temp 36.4 C (97.6 F) (Temporal) Resp 16 Ht 5' 9 (1.753 m) Wt244 lb (110.7 kg) SpO2 97% BMI 36.03 kg/m EXAM: Last 3 Encounter BP Readings: Date: BP: 09/12/2023 115/70 08/30/2023 118/77 05/20/2023 127/76 Wt: 235 lb 12.8 oz (107 kg) BMI: 34.82 kg/(m^2) LABS: Reviewed Hemoglobin A1C Date Value Ref Range Status 01/29/2024 10.2 (H) 4.3 - 5.6 % Final Comment: [place] [employer] guidelines indicate that patients with [...] Z71.89 - message sent to provider and rn home care regarding feet swelling Patient verbalized understanding of instructions. Thank you for allowing pharmacy to participate in this patient's care Sonia Carrera Rph The majority of the pharmacy visit (> 50%) was spent counseling and/or coordinating care for thepatient. I spent a total of 25 minutes on the date of the service which included preparing to see the patient, [id number] patient care, completing clinical documentation, and counseling and educating the patient/family/caregiver. documented in this encounterMercer County Community Hospital08-14-2024 Instructions* Patient Instructions* Sonia Carrera RPh - [...] recommendations: - Please call central scheduling at [phone] to schedule mammogram and colonoscopy - lab work before next appointment, fast 8 hours before appointment documented in this encounterMercer County Community Hospital08-14-2024 NoteHNO ID: [id number] Author: SONIA CARRERA RPh Service: ? Author [...] no pitting edema in legs noted per mortgage or loan underwriter Regimen as below Confirms insulin pen goes [...] gym - cost limits option Working on Vocollect application Past medical, family and social history reviewed and updated. Payor: CARLOS MEDICAID / Plan: CAR[place]OS [place] / Product Type: Medicaid / REVIEW OF [...] (H) 4.3 - 5.6 % Final Comment: [place] [employer] guidelines indicate that patients with [...] breakfast based breakfast - complete application for Vocollect 4. Encounter for medication counseling - ICD9: V65.49, ICD10: Z71.89 Reviewed administration steps for bren, pt able to demo with first injection 5. Preventative health care - ICD9: V70.0, ICD10: Z00.00 -schedule mammogram and colonoscopy 6. Complex care coordination - ICD9: V65.49, ICD10: Z71.89 - message sent to provider and rn home care regarding feet swelling Patient verbalized understanding of instructions. Thank you for allowing pharmacy to participate in this patient's care Sonia Carrera [facility] The majority of the pharmacy visit (> 50%) was spent counseling and/or coordinating care for the patient. I spent a total of 25 minutes on the date of the servi (more content not included)...[facility]08-14-2024 NoteHNO ID: [id number] Author: JEANIE MURPHY RN Service: ? Author [...] seen in the Emergency Department (ED) Location: [facility] Date: 02/24/2024 Reason for ED Visit: [...] provided with appropriate counseling: Yes Based on party director, the following disposition is advised: No symptoms or symptoms present, not severe. Routed to: No Action Needed Jeanie Murphy RN February 26, 2024 12:03 [facility]08-14-2024 History of Present illness Narrative* Jeanie Murphy RN - 02/26/2024 11:54 AM EDT ED Follow-Up Note Provider Action / FYI: Patient doing well today. Patient has no need to see eye doctor. Patient going to [facility] appointment afternoon. Jeanie Murphy RN February 26, 2024 12:03 PM Call completed by: RN Patient seen in ED: In [facility] ED Contact made with Patient: Yes The patient was identified by Name and Date of . Discussed Care with: patient Patient was seen in the Emergency Department (ED) Location: [facility] Date: 02/24/2024 Reason for ED Visit: [...] provided with appropriate counseling: Yes Based on party director, the following disposition is advised: No symptoms or symptoms present, not severe. Routed to: No Action Needed Jeanie Murphy RN February 26, 2024 12:03 PM documented in this encounterMercer County Community Hospital08-14-2024 NotePatient Outreach (AGACM) MICHELLE JULES ([id number]) 1965 F Date Time Provider Department 02/26/24 JEANIE MURPHY [facility] During your visit today, we recorded the [...] seen in the Emergency Department (ED) Location: [place] [facility] Date: 02/24/2024 Reason for ED Visit: [...] provided with appropriate counseling: Yes Based on party director, the following disposition is advised: No symptoms [...] Assessed Reason for Visit: Transition Of Care [4073] Cmt: ER follow up, [place], 02/24/2024 Prescriptions as of 02/26/2024 - dulaglutide [...] for 270 days. - flash glucose sensor (Soup.ioSTYLE LANCE 2 SENSOR) kit Use to check blood sugar before meals and at bedtime - Docusate Sodium (STOOL SOFTENER) 100 mg tab Take 1 capsule by mouth twice daily as needed - acetylcyst/asrvylV68/levomefol (METAFOLBIC PLUS ORAL) Take by mouth. - furosemide (LASIX) 40 mg tablet Take 1 tablet by mouth once daily. - cetirizine (ZYRTEC) 10 mg tablet Take 1 tablet by mouth once daily as needed (for itching, sneezing or runny nose). - losartan (COZAAR) 25 mg tablet (Discontinued) Take 1 tablet by mouth once daily. - blood sugar diagnostic (SimpliFieldTOUCH ULTRA TEST) test strip USE TO TEST [...] 07/12/2016 Nonall (more content not included)...[facility]08-12-2024 Telephone encounter Note* Telephone Encounter - Tamica Beatty LPN - 02/24/2024 5:34 PM EDT error [facility]08-12-2024 Miscellaneous Notes* Telephone Encounter - Tamica Beatty LPN - 02/24/2024 5:34 PM EDT error documented in this encounterMercer County Community Hospital08-09-2024 Telephone encounter Note * Telephone Encounter - Williams Rubin MD - 02/21/2024 3:48 PM EDT Will message patient to see if there is another preferred pharmacy. Called patient on phone number in Chart and message stating [employer] your call cannot be completed. Williams Rubin MD [facility]08-09-2024 Miscellaneous Notes* Telephone Encounter - Williams Rubin [...] advise. Chelsy Eckert LPN documented in this encounterMercer County Community Hospital08-08-2024 Telephone encounter Note * Telephone Encounter - Chelsy Eckert LPN - 02/20/2024 5:14 PM EDT Patient states pharmacy is unable to get the Victoza in, what is she supposed to do? Please advise. Chelsy Eckert LPN [facility]08-01-2024 NoteHNO ID: [id number] Author: WILLIAMS RUBIN MD Service: ? Author Type: Resident Type: Progress Notes Filed: 02/13/2024 16:36 Note Text: Thank you, Dr. Carrera!! Thank you both for the updates too! Williams Rubin [facility]08-01-2024 History of Present illness Narrative* Williams Rubin MD - 02/13/2024 4:35 PM EDT Thank you, Dr. Carrera!! Thank you both for the updates too! Williams Rubin MD * Sonia Carrera RPh - 02/13/2024 12:35 PM EDT Unable [...] is 02/26/2024. PCC instructed patient to call [phone] with any questions or concerns. Health leads [...] Urine Albumin:Creatinine Ratio 01/26/2024 LDL Cholesterol 01/26/2024 Eating Disorder Psychologist plan for next outreach: Will follow-up 3 weeks Signature: Jeanie Murphy RN February 13, 2024 documented in this encounterMercer County Community Hospital08-01-2024 NoteHNO ID: [id number] Author: SONIA CARRERA RPh Service: ? Author Type: Pharmacist Type: Progress Notes Filed: 02/13/2024 12:36 Note Text: Unable to make adjustments based on patient reports. Appt with pharmD 02/26/2024. Please ensure pt brings CGM reader. Thank you! Sonia Carrera, [facility]08-01-2024 NoteHNO ID: [id number] Author: JEANIE MURPHY RN Service: ? Author [...] is 02/26/2024. PCC instructed patient to call [phone] with any questions or concerns. Health leads [...] Urine Albumin:Creatinine Ratio 01/26/2024 LDL Cholesterol 01/26/2024 Eating Disorder Psychologist plan for next outreach: Will follow-up 3 weeks Signature: Jeanie Murphy RN February [address] [place], [place] [address]608-01-2024 NotePatient Outreach (AGACM) MICHELLE JULES ([id number]) 1965 F Date Time Provider Department 02/13/24 JEANIE MURPHY [facility] During your visit today, we recorded the [...] is 02/26/2024. PCC instructed patient to call [phone] with any questions or concerns. Health leads [...] Urine Albumin:Creatinine Ratio 01/26/2024 LDL Cholesterol 01/26/2024 Eating Disorder Psychologist plan for next outreach: Will follow-up 3 weeks Signature: Jeanie Murphy RN February 13, 2024 Sonia Carrera RPh 02/13/2024 12:36 PM Signed Unable to make adjustments based on patient reports. Appt with pharmD 02/26/2024. Please ensure pt brings CGM reader. Thank you! 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 - furosemide (LASIX) 40 mg tablet Take 1 tablet by mouth once daily. - cetirizine (ZYRTEC) 10 mg tablet Take 1 tablet by mouth once daily as needed (for itching, sneezing or runny nose). - losartan (COZAAR) 25 mg tablet (Discontinued) Take 1 tablet by mouth once daily. - blood sugar diagnostic (Broad[employer] Graphics Display SystemUCH ULTRA TEST) test strip USE TO TEST BLOOD SUGAR THREE TIMES A DAY - atorvastatin (LIPITOR) 10 mg tablet Take 1 tablet by mouth once daily. - carvedilol (COREG) 25 mg tablet Take 1 tablet by mouth twice daily. Facility-Administered Medications as of (more content not included)...[facility]07-31-2024 Telephone encounter Note* Telephone Encounter - Karthik Cazares - 02/12/2024 3:04 PM EDT The patient/caregiver contacted the office, requesting refills of liraglutide (VICTOZA) 0.6 mg/ 0.1ml subcutaneous pen injector . Patient prefers prescriptions to be e prescribed to [facility] [address] [place] [address] - [address] [phone] Last Office Visit Date: 01/29/[address] [facility] Visit: Visit date not found Future Appointment: 02/26/2024 Karthik Cazares [facility]07-31-2024 Miscellaneous Notes* Telephone Encounter - Karthik Cazares - 02/12/2024 3:04 PM EDT The patient/caregiver contacted the office, requesting refills of liraglutide (VICTOZA) 0.6 mg/ 0.1ml subcutaneous pen injector . Patient prefers prescriptions to be e prescribed to [facility] - [address] - [place] [address] - [address] [phone] Last Office Visit Date: 01/29/2024 Last [facility] Visit: Visit date not found Future Appointment: 02/26/2024 Karthik Cazares documented in this encounterMercer County Community Hospital07-31-2024 Telephone encounter Note * Telephone Encounter - [...] Itching Simvastatin Other: See Comments myalgia (home) [phone] (cell) Last Office Visit Date: 01/29/2024 Last [facility] Visit: Visit date not found Future Appointment: 02/26/2024 The patients preferred pharmacy has been captured for this encounter? yes Request is for script(s) to be escript to pharmacy. Aby Bahena LPN [facility]07-31-2024 Miscellaneous Notes* Telephone Encounter - Aby Bahena [...] Itching Simvastatin Other: See Comments myalgia (home) [phone] (cell) Last Office Visit Date: 01/29/2024 Last [facility] Visit: Visit date not found Future Appointment: 02/26/2024 The patients preferred pharmacy has been captured for this encounter? yes Request is for script(s) to be escript to pharmacy. Aby Bahena LPN documented in this encounterMercer County Community Hospital07-18-2024 NoteHNO ID: [id number] Author: WILLIAMS RUBIN MD Service: ? Author Type: Resident Type: Progress Notes Filed: 01/30/2024 11:01 Note Text: This is great news! Thank you, Dr. Carrera! Williams Rubin [facility]07-17-2024 NoteHNO ID: [id number] Author: JAMIE AGGARWAL DO Service: ? Author [...] See Pharmacist's note for furthur details. [facility] History of Present illness Narrative* Jamie Aggarwal [...] Mammogram ordered! Williams Rubin MD * [facility] 11:33 AM EDT REASON FOR [...] cost limits option Going on trip to [place] end of this month Follows Past medical, family and social history reviewed and updated. Payor: CARLOS MEDICAID / Plan: CARLOS [facility] MEDICAID [facility] / Product Type: Medicaid / REVIEW OF [...] (A) 4.3 - 5.6 % Final Comment: Location:[facility], [address] [place] [address], [facility] Point of care (POC) Hemoglobin A1c (HGBA1C) [...] specific diabetes management situations: The POC device manufacturer's service representative provides a normal range of 4.2% to 6.5% for the HGBA1C POC test. However, the [place] Diabetes Association guidelines indicate that patients with [...] Z71.89 Message sent to resident PCP and rn home care Patient verbalized understanding of instructions. Thank you for allowing pharmacy to participate in this patient's care Sonia Carrera Rph The majority of the pharmacy visit (> 50%) was spent counseling and/or coordinating care for thepatient. I spent a total of 25 minutes on the date of the service which included preparing to see the patient, tpny-yd-aigt patient care, completing clinical documentation, and counseling and educating the patient/family/caregiver. documented in this encounterMercer County Community Hospital07-17-2024 NoteHNO ID: [id number] Author: WILLIAMS RUBIN MD Service: ? Author Type: Resident Type: Progress Notes Filed: 01/29/2024 13:57 Note Text: Thank you, Dr. Carrera! Mammogram ordered! Williams Rubin [facility]07-17-2024 Instructions* Patient Instructions* Sonia Carrera RPh [...] instead of crackers - review application for [facility] - Please call central scheduling at [phone] to schedule colonoscopy and mammogram - get lab work documented in this encounterMercer County Community Hospital07-17-2024 NoteHNO ID: [id number] Author: SONIA CARRERA RPh Service: ? Author [...] cost limits option Going on trip to [place] end of this month Follows Past medical, family and social history reviewed and updated. Payor: CARLOS MEDICAID / Plan: CARLOS [facility] MEDICAID [facility] / Product Type: Medicaid / REVIEW OF [...] (A) 4.3 - 5.6 % Final Comment: Location:[facility], [address] [place] [address], [facility] Point of care (POC) Hemoglobin A1c (HGBA1C) [...] specific diabetes management situations: The POC device manufacturer's service representative provides a normal range of 4.2% to 6.5% for the HGBA1C POC test. However, the [place] Diabetes [employer] guidelines indicate that patients with [...] neuropathy, with long-term current use of insulin ([facility]) - ICD9: 250.60, 357.2, V58.67, ICD10: E11.40, [...] mammogram for (more content not included)...[facility]07-01-2024 NoteHNO ID: [id number] Author: WILLIAMS RUBIN MD Service: ? Author Type: Resident Type: Progress Notes Filed: 01/13/2024 16:47 Note Text: Noted. Thank you so much, Dr. Carrera! Williams Rubin [facility]06-26-2024 NoteHNO ID: [id number] Author: SONIA CARRERA RPh Service: ? Author Type: Pharmacist Type: Progress Notes Filed: 01/08/2024 12:45 Note Text: Unable to make adjustments based on these reported readings. Please ensure patient brings CGM to pharmD appt. Thanks! Sonia Carrera RPh Hemoglobin A1C (POCT) Date Value Ref Range Status 12/24/2023 10.7 (A) 4.3 - 5.6 % Final Comment: Location:[facility], [address], [address] Point of care (POC) Hemoglobin A1c (HGBA1C) [...] specific diabetes management situations: The POC device manufacturer's service representative provides a normal range of 4.2% to 6.5% for the HGBA1C POC test. However, the [place] Diabetes [employer] guidelines indicate that patients with [...] that alter red blood cell lifespan.[facility]06-25-2024 NoteHNO ID: [id number] Author: JEANIE MURPHY RN Service: ? Author [...] follow up PCC instructed patient to call [phone] with any questions or concerns. Health leads [...] Urine Albumin:Creatinine Ratio 01/26/2024 LDL Cholesterol 01/26/2024 Eating Disorder Psychologist plan for next outreach: Will follow-up 2 weeks Signature: Jeanie Murphy RN January 06[facility]06-25-[facility] History of Present illness Narrative* [...] follow up PCC instructed patient to call [phone] with any questions or concerns. Health leads [...] Urine Albumin:Creatinine Ratio 01/26/2024 LDL Cholesterol 01/26/2024 Eating Disorder Psychologist plan for next outreach: Will follow-up 2 weeks Signature: Jeanie Murphy RN January 07, 2024 documented in this encounterMercer County Community Hospital06-25-2024 NotePatient Outreach (AGACM) MICHELLE JULES ([id number]) 1965 F Date Time Provider Department 01/07/24 JEANIE MURPHY [facility] During your visit today, we recorded the [...] follow up PCC instructed patient to call [phone] with any questions or concerns. Health leads [...] Urine Albumin:Creatinine Ratio 01/26/2024 LDL Cholesterol 01/26/2024 Eating Disorder Psychologist plan for next outreach: Will follow-up 2 weeks Signature: Jeanie Murphy RN January 07, 2024 Sonia Carrera RPh 01/08/2024 12:45 PM Signed Unable to make adjustments based on these reported readings. Please ensure patient brings CGM to pharmD appt. Thanks! Sonia Carrera RPh Hemoglobin A1C (POCT) Date Value Ref Range Status 12/24/2023 10.7 (A) 4.3 - 5.6 % Final Comment: Location:[facility], [address] [place] [address], [facility] Point of care (POC) Hemoglobin A1c (HGBA1C) [...] specific diabetes management situations: The POC device manufacturer's service representative provides a normal range of 4.2% to 6.5% for the HGBA1C POC test. 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 Author [...] details. Signature: Kasandra Rubin DO Faculty Physician, [facility] Family Medicine Residency Date: January 03, 2024 Time: 6:26 [facility]06-17-2024 NoteHNO ID: [id number] Author: JEANIE MURPHY RN Service: ? Author [...] slight improvement. PCC instructed patient to call [phone] with any questions or concerns. Jeanie Murphy RN December 30, 2023 3:28 [facility]06-17-2024 History of Present illness Narrative* Jeanie [...] slight improvement. PCC instructed patient to call [phone] with any questions or concerns. Jeanie Murphy RN December 30, 2023 3:28 PM documented in this encounterMercer County Community Hospital06-17-2024 NotePatient Outreach ([facility] MICHELLE JULES ([id number]) 1965 F Date Time Provider Department 12/30/23 JEANIE MURPHY [facility] During your visit today, we recorded the [...] slight improvement. PCC instructed patient to call [phone] with any questions or concerns. 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 - furosemide (LASIX) 40 mg tablet Take 1 tablet by mouth once daily. - cetirizine (ZYRTEC) 10 mg tablet Take 1 tablet by mouth once daily as needed (for itching, sneezing or runny nose). - losartan (COZAAR) 25 mg tablet (Discontinued) Take 1 tablet by mouth once daily. - blood sugar diagnostic (LaunchTrack ULTRA TEST) test strip USE TO TEST [...] Status:Closed by JEANIE MURPHY on 12/30/23[facility] 12-27-2023 NoteHNO ID: [id number] Author: SONIA CARRERA [facility]: ? Author Type: Pharmacist Type: Progress Notes Filed: 12/27/2023 13:59 Note Text: As documented in separate encounter - lowering dose victoza to see if improves nausea. Needs to schedule external testing. Can get brendon drops OTC to help with nausea. Will defer to provider if he would like to do acute script for complaint. Sonia Carrera [facility]06-14-2024 NoteHNO ID: [id number] Author: JEANIE MURPHY RN Service: ? Author [...] Jeanie Murphy RN December 27, 2023 1:18 [facility]06-14-2024 History of Present illness Narrative* Jeanie [...] 27, 2023 1:18 PM documented in this encounterMercer County Community Hospital06-14-2024 NoteHNO ID: [id number] Author: SONIA CARRERA RPh Service: ? Author [...] - [place] GASTRIC EMPTYING SOLID Sonia Carrera [facility]06-14-2024 History of Present illness Narrative* Sonia Carrera [...] from the original note were not included. [facility] Family Medicine [address] [facility] [address] [place], [place] [address] Visit Date: December 23, 2023 Name: Michelle Jules Date of : 1965 MRN/E #: [id number] Chief Complaint: No chief complaint on file. 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 furosemide (LASIX) 40 mg tablet Take 1 tablet by mouth once daily. cetirizine (ZYRTEC) 10 mg tablet Take 1 tablet by mouth once daily as needed (for itching, sneezingor runny nose). blood sugar diagnostic (ONETOUCH ULTRA TEST) test [...] neuropathy, with long-term current use of insulin ([facility]) - improved control, A1C 10.7 today - [...] 2023 Time: 9:03 PM documented in this encounterMercer County Community Hospital06-14-2024 NoteHNO ID: [id number] Author: MANNY SHIELDS MD Service: ? Author Type: Resident Type: Progress Notes Filed: 12/27/2023 12:41 Note Text: Attempted to call patient but went directly to and did not allow message. 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 - furosemide (LASIX) 40 mg tablet Take 1 tablet by mouth once daily. - cetirizine (ZYRTEC) 10 mg tablet Take 1 tablet by mouth once daily as needed (for itching, sneezing or runny nose). - losartan (COZAAR) 25 mg tablet (Discontinued) Take 1 tablet by mouth once daily. - blood sugar diagnostic (LaunchTrack ULTRA TEST) test strip USE TO TEST [...] Status:Closed by JEANIE MURPHY on 12/27/23[facility] 12-26-2023 NoteHNO ID: [id number] Author: JEANIE MURPHY, RN Service: ? Author [...] Screening 09/27/2021 Behavioral Health Screening Never done Eating Disorder Psychologist plan for next outreach: Will follow-up 2 weeks Signature: Jeanie Murphy RN December 25[facility] History of Present illness Narrative* [...] Screening 09/27/2021 Behavioral Health Screening Never done Eating Disorder Psychologist plan for next outreach: Will follow-up 2 weeks Signature: Jeanie Murphy RN December 26, 2023 documented in this encounterMercer County Community Hospital06-13-2024 NotePatient Outreach (AGACM) MICHELLE JULES ([id number]) 1965 F Date Time Provider Department 12/26/23 JEANIE MURPHY [facility] During your visit today, we recorded the following information about you: Jeanie Murphy RN 12/26/2023 11:52 AM Signed AG PRIMARY CARE COORDINATION FOLLOW-UP [...] Screening 09/27/2021 Behavioral Health Screening Never done Eating Disorder Psychologist plan for next outreach: Will follow-up 2 [...] MD - Fully Assessed 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 - [...] mg tablet (more content not included)...[facility]06-11-2024 NoteHNO ID: [id number] Author: MANNY SHIELDS MD Service: ? Author Type: Resident Type: Progress Notes Filed: 12/30/2023 10:29 Note Text: [facility] Family Medicine [address] [facility] [address] [place] [phone] Visit Date: December 23, 2023 Name: Michelle Jules Date of : 1965 MRN/E #: [id number] Chief Complaint: No chief complaint on file. 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 furosemide (LASIX) 40 mg tablet Take 1 tablet by mouth once daily. cetirizine (ZYRTEC) 10 mg tablet Take 1 tablet by mouth once daily as needed (for itching, sneezing or runny nose). blood sugar diagnostic (Broadcast [employer] Graphics Display SystemUCH ULTRA TEST) test strip USE TO TEST [...] gerd. Diagnoses (more content not included)...[facility]05-24-2024 NoteHNO ID: [id number] Author: JEANIE MURPHY RN Service: ? Author Type: Registered Nurse Type: Progress Notes Filed: 12/06/2023 12:15 Note Text: PRIMARY CARE COORDINATION QUICK NOTE Provider Action/FYI Patient identified by name and date . PCC attempted to contact patient to reschedule Pharm D appointment. PCC unable to leave a message. Jeanie Murphy RN December 06, 2023 12:14 [facility]05-24-2024 History of Present illness Narrative* Jeanie Murphy RN - 12/06/2023 12:14 PM EDT PRIMARY CARE COORDINATION QUICK NOTE Provider Action/FYI Patient identified by name and date . PCC attempted to contact patient to reschedule Pharm D appointment. PCC unable to leave a message. 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 - furosemide (LASIX) 40 mg tablet Take 1 tablet by mouth once daily. - cetirizine (ZYRTEC) 10 mg tablet Take 1 tablet by mouth once daily as needed (for itching, sneezing or runny nose). - losartan (COZAAR) 25 mg tablet (Discontinued) Take 1 tablet by mouth once daily. - blood sugar diagnostic (LaunchTrack ULTRA TEST) test strip USE TO TEST [...] Status:Closed by JEANIE MURPHY on 12/06/23[facility] 12-05-2023 Telephone encounter Note* Telephone Encounter - Cristiane Montanez - 12/05/2023 2:35 PM EDT Patient said she missed her appointment bc she came and got lost. Attempted to reach out to pt to reschedule and pt phone had a really bad connection. Tried calling her back and it went to a busy tone. [facility]05-23-2024 Miscellaneous Notes* Telephone Encounter - Cristiane Montanez - 12/05/2023 2:35 PM EDT Patient said she missed her appointment bc she came and got lost. Attempted to reach out to pt to reschedule and pt phone had a really bad connection. Tried calling her back and it went to a busy tone. * Telephone Encounter - Lisseth Cristiane - 12/05/2023 2:33 PM EDT ----- Message from Tayler Chin sent at 12/05/2023 2:09 PM EDT ----- [address] [place] [address]/FAMP AG ACC// Homar Vasques MD / [Callback- reschedule pharmacist appointment] Subject Line Format: Medicine / Homar Vasques MD / [Callback-reschedule pharmacist appointment] Select Department Name For Pool Routing Assistance: FAMP AG ACC CFM => AG FAMP ACC CFM APPT CTR TRIAGE POOL [[id number]] Patient: Michelle Jules Date of : 1965 Primary Care Provider: Homar Vasques MD The reason I am contacting the office is: Call Back - Patient is requesting a call back from PCP Office about rescheduling appointment for 12/05/23 at 2:00pm with the pharmacist. Person calling if other than patient: N/A Best contact number: [phone] Thank you, Tayler Chin December 05, 2023 2:09 PM documented in this encounterMercer County Community Hospital05-23-2024 Telephone encounter Note * Telephone Encounter - Cristiane Montanez - 12/05/2023 2:33 PM EDT ----- Message from Tayler Chin sent at 12/05/2023 2:09 PM EDT ----- [facility] [place]/FAMP AG ACC// Homar Vasques MD / [Callback- reschedule pharmacist appointment] Subject Line Format: Medicine / Homar Vasques MD / [Callback-reschedule pharmacist appointment] Select Department Name For Pool Routing Assistance: FAMP AG ACC CFM => AG FAMP ACC CFM APPT CTR TRIAGE POOL [[id number]] Patient: Michelle Jules Date of : 1965 Primary Care Provider: Homar Vasques MD The reason I am contacting the office is: Call Back - Patient is requesting a call back from PCP Office about rescheduling appointment for 12/05/23 at 2:00pm with the pharmacist. Person calling if other than patient: N/A Best contact number: [phone] Thank you, Tayler Chin December 05, 2023 2:09 PM [facility]05-23-[facility] Telephone encounter Note* Telephone Encounter - Sonia Carrera RPh - 12/05/2023 2:18 PM EDT Patient no showed appt with pharmd today. Attempted telephone outreach - unable to reach. A1c due at this time; order placed. Please have patient obtain and reschedule with pharmd thanks! Hemoglobin A1C (POCT) Date Value Ref Range Status 08/30/2023 13.7 (A) 4.3 - 5.6 % Final Comment: Location:[facility] [place], [address] [place] [address], [facility] Point of care (POC) Hemoglobin A1c (HGBA1C) [...] specific diabetes management situations: The POC device manufacturer's service representative provides a normal range of 4.2% to 6.5% for the HGBA1C POC test. However, the [place] [employer] guidelines indicate that patients with [...] anemia) that alter red blood cell lifespan. [facility]05-23-2024 Miscellaneous Notes* Telephone Encounter - Sonia Carrera RPh - 12/05/2023 2:18 PM EDT Patient no showed appt with pharmd today. Attempted telephone outreach - unable to reach. A1c due at this time; order placed. Please have patient obtain and reschedule with pharmd thanks! Hemoglobin A1C (POCT) Date Value Ref Range Status 08/30/2023 13.7 (A) 4.3 - 5.6 % Final Comment: Location:[facility], [address] [place] [address], [facility] Point of care (POC) Hemoglobin A1c (HGBA1C) [...] specific diabetes management situations: The POC device manufacturer's service representative provides a normal range of 4.2% to 6.5% for the HGBA1C POC test. However, the [place] [employer] guidelines indicate that patients with [...] red blood cell lifespan. documented in this encounterMercer County Community Hospital05-17-2024 NoteHNO ID: [id number] Author: JEANIE MURPHY RN Service: ? Author [...] Jeanie Murphy RN November 29, 2023 4:11 [facility]05-17-2024 History of Present illness Narrative* Jeanie Murphy RN - 11/29/2023 4:10 PM EDT PRIMARY CARE COORDINATION QUICK NOTE Provider Action/FYI Patient identified by name and date . PCC contacted patient and made her aware Dr. Carrera would like her to increase her humalog to 18 units. Patient repeated instructions back. Patient has no questions or concerns. Jeaine Murphy RN November 29, 2023 4:11 PM * Sonia Carrera RPh - 11/29/2023 3:53 PM EDT Please have patient INCREASE humalog to 18 units with meals. Thank you. Sonia Carrera RPh * Jeanie Murphy RN - 11/29/2023 [...] appointment 12/05/2023. PCC instructed patient to call [phone] with any questions or concerns. Health leads [...] Behavioral Health Screening Never done HbA1C 11/28/2023 Eating Disorder Psychologist plan for next outreach: Will follow-up 3 weeks Signature: Jeanie Murphy RN November 29, 2023 documented in this encounterMercer County Community Hospital05-17-2024 Note* Addendum Note - Sonia Carrera RPh - 11/29/2023 3:54 PM EDTAddended by: SONIA CARRERA on: 11/29/2023 03:54 PM Modules accepted: Orders [facility]05-17-2024 Miscellaneous Notes* Addendum Note - Sonia Carrera RPh - 11/29/2023 3:54 PM EDTAddended by: SONIA CARRERA on: 11/29/2023 03:54 PM Modules accepted: Orders documented in this encounterMercer County Community Hospital05-17-2024 NoteHNO ID: [id number] Author: SONIA CARRERA RPh Service: ? Author Type: Pharmacist Type: Progress Notes Filed: 11/29/2023 15:54 Note Text: Please have patient INCREASE humalog to 18 units with meals. Thank you. Sonia Carrera [facility]05-17-2024 NoteHNO ID: [id number] Author: JEANIE MURPHY, RN Service: ? Author [...] appointment 12/05/2023. PCC instructed patient to call [phone] with any questions or concerns. Health leads [...] Behavioral Health Screening Never done HbA1C 11/28/2023 Eating Disorder Psychologist plan for next outreach: Will follow-up 3 weeks Signature: Jeanie Murphy RN [facility] 284A[facility] NotePatient Outreach (AGACM) MICHELLE JULES ([id number]) 1965 F Date Time Provider Department 11/29/23 JEANIE MURPHY [facility] During your visit today, we recorded the following information about you: Jeanie Murphy RN 11/29/2023 3:27 PM Signed AG PRIMARY CARE COORDINATION FOLLOW-UP [...] appointment 12/05/2023. PCC instructed patient to call [phone] with any questions or concerns. Health leads [...] Behavioral Health Screening Never done HbA1C 11/28/2023 Eating Disorder Psychologist plan for next outreach: Will follow-up 3 weeks Signature: Jeanie Murphy RN November 29, 2023 Sonia Carrera [facility] 11/29/2023 3:54 PM Signed Please have patient INCREASE humalog to 18 units with meals. Thank you. 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 - furosemide (LASIX) 40 mg tablet Take 1 tablet by mouth once daily. - cetirizine (ZYRTEC) 10 mg tablet Take 1 tablet by mouth once daily as needed (for itching, sneezing or runny nose). - losartan (COZAAR) 25 mg tablet (Discontinued) Take 1 tablet by mouth once daily. - blood sugar diagnostic (LaunchTrack ULTRA TEST) test strip USE TO TEST BLOOD SUGAR THREE TIMES A DAY - aspirin, enteric coated (ECOTRIN LOW STRENGTH) 81 mg EC tablet Take 1 tablet by mouth once daily. - atorvastatin (LIPITOR) 10 mg tablet Take (more content not included)...[facility]05-15-2024 Telephone encounter Note* Telephone Encounter - Eileen Ferrera - 11/27/2023 3:02 PM EDT Please review and complete. Will be placed in your in box.Thank you Specialty called [phone] Aggarwal to sign form. [facility]05-15-2024 Miscellaneous Notes* Telephone Encounter - Eileen Ferrera - 11/27/2023 3:02 PM EDT Please review and complete. Will be placed in your in box.Thank you Specialty called 11.26.[address] Aggarwal to sign form. documented in this encounterMercer County Community Hospital05-03-2024 Telephone encounter Note * Telephone Encounter - Veronica Chi RN - 11/15/2023 10:26 AM EDT [facility] contacted patient regarding referral for screening colonoscopy. Patient states that she has had her previous scopes done at [facility], and is going to speak with her physician about going closer to home. Patient declined to schedule with us at this time. [facility]05-03-2024 Miscellaneous Notes* Telephone Encounter - Veronica Chi RN - 11/15/2023 10:26 AM EDT [facility] contacted patient regarding referral for screening colonoscopy. Patient states that she has had her previous scopes done at [facility], and is going to speak with her physician about going closer to home. Patient declined to schedule with us at this time. documented in this encounterMercer County Community Hospital05-02-2024 NoteHNO ID: [id number] Author: JAMIE AGGARWAL, DO Service: ? Author [...] Pharmacist's note for furthur details. Jamie Aggarwal [facility] History of Present illness Narrative* Jamie [...] details. Jamie Aggarwal DO * Sonia Carrera, [facility] - 11/14/2023 1:37 PM EDT REASON FOR [...] which included preparing to see the patient, bipb-vq-asur patient care, completing clinical documentation, and counseling and educating the patient/family/caregiver. documented in this encounterMercer County Community Hospital05-02-2024 Instructions* Patient Instructions* Sonia Carrera RPh - [...] recommendations: - Please call central scheduling at [phone] to schedule mammogram and colonoscopy documented in this encounterMercer County Community Hospital05-02-2024 NoteHNO ID: [id number] Author: SONIA CARRERA RPh Service: ? Author [...] which included preparing to see the patient, kmok-dk-rfgu patient care, completing clinical documentation, and counseling and educating the patient/family/caregiver.[facility]04-26-2024 NoteHNO ID: [id number] Author: SONIA CARRERA RPh Service: ? Author Type: Pharmacist Type: Progress Notes Filed: 11/08/2023 14:34 Note Text: Noted; no changes at this time given gaps in information. Sonia Carrera RPh Hemoglobin A1C (POCT) Date Value Ref Range Status 08/30/2023 13.7 (A) 4.3 - 5.6 % Final Comment: Location:[facility], [address] [place] [address], [id number] Point of care (POC) Hemoglobin A1c (HGBA1C) [...] specific diabetes management situations: The POC device manufacturer's service representative provides a normal range of 4.2% to 6.5% for the HGBA1C POC test. However, the [place] Diabetes [employer] guidelines indicate that patients with [...] that alter red blood cell lifespan.[facility]04-26-2024 History of Present illness Narrative* Sonia Carrera RPh - 11/08/2023 2:33 PM EDT Noted; no changes at this time given gaps in information. Sonia Carrera RPh Hemoglobin A1C (POCT) Date Value Ref Range Status 08/30/2023 13.7 (A) 4.3 - 5.6 % Final Comment: Location:[facility], [address] [place] [address], [facility] Point of care (POC) Hemoglobin A1c (HGBA1C) [...] specific diabetes management situations: The POC device manufacturer's service representative provides a normal range of 4.2% to 6.5% for the HGBA1C POC test. However, the [place] Diabetes [employer] guidelines indicate that patients with [...] this time. PCC instructed patient to call [phone] with any questions or concerns. Health leads [...] Screening 09/27/2021 Behavioral Health Screening Never done Eating Disorder Psychologist plan for next outreach: Will follow-up 3 weeks Signature: Jeanie Murphy RN November 08, 2023 documented in this encounterMercer County Community Hospital04-26-2024 NoteHNO ID: [id number] Author: JEANIE MURPHY RN Service: ? Author [...] this time. PCC instructed patient to call [phone] with any questions or concerns. Health leads [...] Screening 09/27/2021 Behavioral Health Screening Never done Eating Disorder Psychologist plan for next outreach: Will follow-up 3 weeks Signature: Jeanie Murphy RN November 07[facility]04[facility] NotePatient Outreach (AGACM) MICHELLE JULES ([id number]) 1965 F Date Time Provider Department 11/08/23 JEANIE MURPHY During your visit today, we [...] this time. PCC instructed patient to call [phone] with any questions or concerns. Health leads [...] Screening 09/27/2021 Behavioral Health Screening Never done Eating Disorder Psychologist plan for next outreach: Will follow-up 3 weeks Signature: Jeanie Murphy RN November 08, 2023 Sonia Carrera RPh 11/08/2023 2:34 PM Signed Noted; no changes at this time given gaps in information. Sonia Carrera RPh Hemoglobin A1C (POCT) Date Value Ref Range Status 08/30/2023 13.7 (A) 4.3 - 5.6 % Final Comment: Location:[facility], [address] [place] [address], [facility] Point of care (POC) Hemoglobin A1c (HGBA1C) [...] specific diabetes management situations: The POC device manufacturer's service representative provides a normal range of 4.2% to 6.5% for the HGBA1C POC test. 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 Will be placed in your temp file.Thank you [facility]04-23-2024 Miscellaneous Notes* Telephone Encounter - Eileen Ferrera - 11/05/2023 2:14 PM EDT Please review and complete. Will be placed in your temp file.Thank you documented in this encounterMercer County Community Hospital04-18-2024 Miscellaneous Notes* Telephone Encounter - Cristiane Montanez - 10/31/2023 8:23 AM EDT Referral to GASTROENTEROLOGY entered into the [facility] portal on 10/31/2023. Confirmation number [id number]. documented in this encounterMercer County Community Hospital04-17-2024 NoteHNO ID: [id number] Author: JAMIE AGGARWAL DO Service: ? Author [...] for furthur details. Jamie Aggarwal [facility]04-17-2024 History of Present illness Narrative* Jamie Aggarwal [...] furthur details. Jamie Aggarwal DO * Sonia aCrrera, [facility] - 10/30/2023 2:18 PM EDT REASON FOR [...] metformin Payor: [place] MEDICAID / Plan: [place] [facility] MEDICAID [facility] / Product Type: Medicaid / 24 hour [...] spent counseling and/or coordinating care for thepatient. Mzbv-sf-dysw time was 20 minutes. documented in this encounterMercer County Community Hospital04-17-2024 Miscellaneous Notes* Addendum Note - Williams Rubin MD - 10/30/2023 4:10 PM EDTAddended by: WILLIAMS RUBIN on: 10/30/2023 04:10 PM Modules accepted: Orders documented in this encounterMercer County Community Hospital04-17-2024 Instructions* Patient Instructions* Sonia Carrera RPh - [...] intake - Please call central scheduling at [phone] to schedule mammogram and colonoscopy Other recommendations: - continue using freestyle lance If your sensor reads errors or your sensor falls off, please call: . Freestyle lance will replace any sensor that malfunctions. Please keep this sensor to send back to the manufacturer's service representative. Scan sensor at least every 8 hours. documented in this encounterMercer County Community Hospital04-17-2024 NoteHNO ID: [id number] Author: SONIA CARRERA RPh Service: ? Author [...] aspirin: Yes Prior intolerance to metformin Payor: [place] MEDICAID / Plan: [facility] MEDICAID [facility] / Product Type: Medicaid / 24 hour [...] above Tere (more content not included)...[facility]04-09-2024 Miscellaneous Notes* Telephone Encounter - Maria [...] Itching Simvastatin Other: See Comments myalgia (home) [phone] (work) Last Office Visit Date: 09/12/2023 Last [facility] Visit: Visit date not found Future Appointment: 10/30/2023 The patients preferred pharmacy has been captured for this encounter? yes Request is for script(s) to be escript to pharmacy. Maria A Velarde LPN documented in this encounterMercer County Community Hospital03-24-2024 Discharge summary Author Jose R Phillips [facility] October 06, 2023 3:51pm Note Date/Time October 06, 2023 1:5 5pm [facility] Medical Records Department [address] [place] [address] Emergency Department Summary 10/06/23 MR#: [id number] Acct: [id number] Name: MICHELLE JULES Rep #:[id number] : 1965 58 From: oJse R Phillips MD PCP: Care Physician,No Primary [...] not bleeding now thatEMS wrapped it tightly. [facility] Medical History Arthritis Diabetes type 2, [...] Last Taken Unknown] FreeStyle Lance 14 Day [place] (flash glucose scanning reader) #1 ea 08/04/18 [...] check her blood counts. 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 Discharge [...] x14 days (DME) FreeStyle Lance 14 Day [place] misc See Dose Instructions .ROUTE .MEDSUPPLY Qty: [...] Primary Care Provider: Care Physician,No Primary Referrals: [facility] [address] [facility] Doctor,Out of [Non-Staff] - Keep Sarah appointment (with your chemical plant operator; return to the ER if any issues [...] your Primary Care Provider. Call [facility] ([phone]) or report to the closest Emergency Room. Call 911 if necessary. 10/06/23 1551 <Electronically signed by Jose R Phillips MD> Cosigner Signature (if applicable): CC: No Primary Care Physician ~ Signed [facility] Work Phone: 1(842) 195-502103-08-2024 NoteHNO ID: [id number] Author: SONIA CARRERA RPh Service: ? Author Type: Pharmacist Type: Progress Notes Filed: 09/20/2023 14:29 Note Text: Aware; nursing working on PA. Addition of GLP1 will add with hyperglycemia. Recent change to toujeo so will not make adjustments at this time. Sonia Carrera [facility]03-08-2024 History of Present illness Narrative* Sonia Carrera [...] repeated back. PCC instructed patient to call [phone] with any questions or concerns. Health leads [...] Mammogram Screening 12/03/2018 Colorectal Cancer Screening 09/27/2021 Eating Disorder Psychologist plan for next outreach: Will follow-up 2 weeks Signature: Jeanie Murphy RN September 20, 2023 documented in this encounterMercer County Community Hospital03-08-2024 NoteHNO ID: [id number] Author: JEANIE MURPHY RN Service: ? Author [...] repeated back. PCC instructed patient to call [phone] with any questions or concerns. Health leads [...] Mammogram Screening 12/03/2018 Colorectal Cancer Screening 09/27/2021 Eating Disorder Psychologist plan for next outreach: Will follow-up 2 weeks Signature: Jeanie Murphy RN September 19[facility]03[facility] NotePatient Outreach (AGACM) MICHELLE JULES ([id number]) 1965 F Date Time Provider Department 09/20/23 JEANIE MURPHY [facility] During your visit today, we recorded the [...] repeated back. PCC instructed patient to call [phone] with any questions or concerns. 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 - furosemide (LASIX) 40 mg tablet Take 1 tablet by mouth once daily. - cetirizine (ZYRTEC) 10 mg tablet Take 1 tablet by mouth once daily as needed (for itching, sneezing or runny nose). - losartan (COZAAR) 25 mg tablet (Discontinued) Take 1 tablet by mouth once daily. - blood sugar diagnostic (LaunchTrack ULTRA TEST) test strip USE TO TEST [...] 09/09/2015 Biventric (more content not included)...[facility]03-07-2024 Miscellaneous Notes* Telephone Encounter - Maria A Velarde LPN - 09/19/2023 10:52 AM EST Prior authorization for Victoza has been submitted via telephone ([employer]). Reference # [id number]. Awaiting determination. documented in this encounterMercer County Community Hospital03-07-2024 Miscellaneous Notes* Telephone Encounter - Maria A Velarde LPN - 09/19/2023 10:50 AM EST Prior authorization for Freestyle Lance 2 sensor has been submitted via WUT. Awaiting determination. documented in this encounterMercer County Community Hospital03-01-2024 NoteHNO ID: [id number] Author: JAMIE AGGARWAL DO Service: ? Author [...] for furthur details. Jamie Aggarwal [facility]03-01-2024 History of Present illness Narrative* Jamie Aggarwal [...] details. Jamie Aggarwal DO * Sonia Carrera [facility] - 09/13/2023 3:26 PM EST Called pharmacy regarding insurance coverage - mahi covered, $15 per month supply - freeyle lance sensor, needs PA - nicci, efra [...] insurance would not pay for it Payor: [place] MEDICAID / Plan: [place] [employer] / Product Type: Medicaid / Previously used [...] aspirin: Yes Prior intolerance to metformin Payor: [employer] MEDICAID / Plan: [place] / Product Type: Medicaid / 24 hour [...] spent counseling and/or coordinating care for thepatient. Qyiv-po-oxhp time was 25 minutes. documented in this encounterMercer County Community Hospital03-01-2024 NoteHNO ID: [id number] Author: SONIA CARRERA RPh Service: ? Author Type: Pharmacist Type: Progress Notes Filed: 09/13/2023 15:33 Note Text: Called pharmacy regarding insurance coverage - toujeo covered, $15 per month supply - freestyle lance salvatore, needs STACY - efra grajeda Will message nursing for assistance. Sonia Carrera RPh Time spent: 5 minutes[facility]02-29-2024 Instructions* Patient Instructions* Sonia Carrera RPh - 09/12/2023 4:07 PM EST Thank you for letting us care for you today! Below is a brief summary of our appointment. Please consider going to our food pantry after your visit. The pantry is located in the main hospital. To get there: Continue straight from the CFM desk to the elevators Ride the elevators to the first floor Continue straight to the main entrance of the [facility] building Walk outside to the [facility] and [facility] Enter the [facility] doors Turn to the left of the doors Continue down the mendoza until you see adiology Turn left at the radiology doors Continue straight until the hallway ends Turn right and the pantry is on the left - knock on the door to enter Phone for the pantry: [phone] Hours of operation: Mondays: 9am to 12pm Tu/: 9am to 12pm / 1pm to 3pm Wed/Sat: 9am to 12pm / 1pm to 2pm documented in this encounterMercer County Community Hospital02-29-2024 NoteHNO ID: [id number] Author: SONIA CARRERA RPh Service: ? Author Type: Pharmacist Type: Progress Notes Filed: 09/13/2023 15:33 Note Text: REASON FOR CONSULT: diabetes Referring Provider: Dr. Thornton Date of Consult: 08/30/2023 Michelle Jlues is a 58 year old female who [...] it Payor: CARLOS MEDICAID / Plan: CARLOS [facility] MEDICAID [place] / Product Type: Medicaid / Previously used [...] metformin Payor: CARLOS MEDICAID / Plan: CARLOS [facility] MEDICAID [facility] / Product Type: Medicaid / 24 hour [...] in this patient's care Sonia Carrera RPh ?The majority of the pharmacy visit (> 50%) was spent counseling and/or coordinating care for the patient. Bdgc-gc-clqf time was 25 minutes.?[facility]02-23-2024 NoteHNO ID: [id number] Author: JEANIE MURPHY RN Service: ? Author Type: Registered Nurse Type: Progress Notes Filed: 09/06/2023 12:46 Note Text: PRIMARY CARE COORDINATION QUICK NOTE Provider Action/FYI Patient identified by name and date . PCC attempted PCC follow up. PCC unable to leave message. PCC will attempt to contact patient again at a later date. PCC instructed patient to call [phone] with any questions or concerns. Jeanie Murphy RN September 06, 2023 12:44 [facility]02-23-2024 History of Present illness Narrative* Jeanie Murphy RN - 09/06/2023 12:41 PM EST PRIMARY CARE COORDINATION QUICK NOTE Provider Action/FYI Patient identified by name and date . PCC attempted PCC follow up. PCC unable to leave message. PCC will attempt to contact patient againat a later date. PCC instructed patient to call [phone] with any questions or concerns. Jeanie Murphy RN September 06, 2023 12:44 PM documented in this encounterMercer County Community Hospital02-23-2024 NotePatient Outreach (AGACM) MICHELLE JULES ([id number]) 1965 F Date Time Provider Department 09/06/23 JEANIE MUPRHY [facility] During your visit today, we recorded the following information about you: Jeanie Murphy RN 09/06/2023 12:46 PM Signed PRIMARY CARE COORDINATION QUICK NOTE Provider Action/FYI Patient identified by name and date . PCC attempted PCC follow up. PCC unable to leave message. PCC will attempt to contact patient again at a later date. PCC instructed patient to call [phone] with any questions or concerns. 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 - [...] mouth once daily. - blood sugar diagnostic (LaunchTrack ULTRA TEST) test strip USE TO TEST [...] Status:Closed by JEANIE MURPHY on 09/06/23[facility] 08-30-2023 NoteHNO ID: [id number] Author: JOHANNA THORNTON DO Service: ? Author Type: Physician [...] care. See resident's note for further details. Johanna Thornton DONorthern [facility] Hospital02-16-2024 History of Present illness Narrative* Johanna Thornton DO - 08/30/2023 11:25 PM EST [...] care. See resident's note for further details. Johanna Thornton DO * Williams Rubin MD - 08/30/2023 2:40 PM EST Images from the original note were not included. [facility] / [address] [place] [id number] Visit Date: August 30, 2023 Name: Michelle Jules Date of : 1965 MRN/E #: [id number] Subjective Patient is a 58 year old [...] - Patient is stress eating : Watching ls-bdvevj-om-law and real mom in hospital.mom hospitalized and [...] neuropathy, with long-term current use of insulin ([facility]) -ICD9: 250.60, 357.2, V58.67, ICD10: E11.40, Z79.4 (primary diagnosis) - Uncontrolled - Worsening control - Counseled on healthy diet and regular exercise - Discussed need for and benefit of weight loss. BMI 34.82 kg/(m^2) - Discussed diabetic education issues of - LIRAGLUTIDE 0.6 MG/0.1 ML (18 MG/3 ML) SUBCUTANEOUS PEN INJECTOR - CARLOS RADHAYIN U-100 INSULIN 100 UNIT/ML (3 ML) SUBCUTANEOUS - PEN NEEDLE, DIABETIC 31 GAUGE X 16 - INSULIN LISPRO (U-100) 100 UNIT/ML SUBCUTANEOUS PEN - GLYBURIDE 10 MG TABLET, increased from 5 mg - [facility] ([facility] ONLY) - Will [...] which included preparing to see the patient, bpgj-xo-vglb patient care, completing clinical documentation, obtaining and/or reviewing separately obtained history, performing a medically appropriate examination, counseling and educating the pat ient/family/caregiver, ordering medications, tests, or procedures, communicating with other HCPs (not separately reported), independently interpreting results (not separately reported), and communicating results to the patient/family/caregiver. Provider: Williams Rubin MD Date: August 30, 2023 Time: 7:04 AM Williams Rubin Family Medicine, PGY-I [facility] documented in this encounterMercer County Community Hospital02-16-2024 NoteHNO ID: [id number] Author: WILLIAMS RUBIN MD Service: ? Author Type: Resident Type: Progress Notes Filed: 08/30/2023 21:23 Note Text: [facility] [address] Floor [place] [phone] Visit Date: August 30, 2023 Name: Michelle Jules Date of : 1965 MRN/E #: [id number] Subjective Patient is a 58 year old [...] - Patient is stress eating : Watching wt-yylput-cn-law and real mom in hospital.mom hospitalized and [...] neuropathy, with long-term current use of insulin ([facility]) - ICD9: 250.60, 357.2, V58.67, ICD10: E11.40, [...] increased from 5 mg - [facility] ([facility] ONLY) - Will have close follow-up. - Consider referral to endocrinology 2. Anxie (more content not included)...[facility]02-01-2024 NoteHNO ID: [id number] Author: WILLIAMS RUBIN MD Service: ? Author Type: Resident Type: Progress Notes Filed: 08/15/2023 18:36 Note Text: Thank you! Noted. Williams Rubin, [facility]01-29-[facility]24 NoteHNO ID: [id number] Author: JEANIE MURPHY RN Service: ? Author Type: Registered Nurse Type: Progress Notes Filed: 08/12/2023 14:24 Note Text: PRIMARY CARE COORDINATION QUICK NOTE Provider Action/FYI Patient identified by name and date . PCC contacted patient and made her aware of increase of Victoza to 1.8 mg daily. Patient has no questions or concerns. Jeanie Murphy RN August 12, 2023 2:24 [facility]01-26-2024 NoteHNO ID: [id number] Author: JEANIE MURPHY RN Service: ? Author Type: Registered Nurse Type: Progress Notes Filed: 08/09/2023 14:40 Note Text: PRIMARY CARE COORDINATION QUICK NOTE Provider Action/FYI Patient identified by name and date . PCC attempted to contact patient with Pharm D note. PCC left message with pharm D information. PCC asked patient to call PCC back at [phone] to confirm she received the information. Jeanie Murphy RN August 09, 2023 2:40 [facility]01-26-2024 NoteHNO ID: [id number] Author: SONIA CARRERA, [facility] Service: ? Author Type: Pharmacist Type: Progress Notes Filed: 08/09/2023 14:27 Note Text: Victoza last increased 06/2023. Please assess if patient is having s/s of N/V/C/D. If not, can increase to 1.8 mg daily (max dose). Sonia Carrera, [facility]01-26-2024 NoteHNO ID: [id number] Author: JEANIE MURPHY RN Service: ? Author [...] follow up. PCC instructed patient to call [phone] with any questions or concerns. Health leads [...] Colorectal Cancer Screening 09/27/2021 Depression Assessment 07/15/2023 Eating Disorder Psychologist plan for next outreach: Will follow-up 3 weeks Signature: Jeanie Murphy RN [facility] 09[facility]01[facility] NotePatient Outreach ([facility]) MICHELLE [id number]) 1965 F Date Time Provider Department 08/09/23 JEANIE MURPHY [facility] During your visit today, we recorded the [...] follow up. PCC instructed patient to call [phone] with any questions or concerns. Health leads [...] Colorectal Cancer Screening 09/27/2021 Depression Assessment 07/15/2023 Eating Disorder Psychologist plan for next outreach: Will follow-up 3 weeks Signature: Jeanie Murphy RN August 09, 2023 Sonia Carrera RPh 08/09/2023 2:27 PM Signed Victoza last increased 06/2023. Please assess if patient is having s/s of N/V/C/D. If not, can increase to 1.8 mg daily (max dose). Marcos Giron David, RN 08/09/2023 2:40 PM Signed PRIMARY CARE COORDINATION QUICK NOTE Provider Action/FYI Patient identified by name and date . PCC attempted to contact patient with Pharm D note. PCC left message with pharm D information. PCC asked patient to call PCC back at [phone] to confirm she received the information. 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 - [...] runny no (more content not included)...[facility]01-05-2024 NoteHNO ID: [id number] Author: JEANIE MURPHY RN Service: ? Author [...] this time. PCC instructed patient to call [phone] with any questions or concerns. Health leads [...] Colorectal Cancer Screening 09/27/2021 Depression Assessment 07/15/2023 Eating Disorder Psychologist plan for next outreach: Will follow-up 3 weeks Signature: Jeanie Murphy RN July 19[facility]01[facility] NotePatient Outreach (AGACM) MICHELLE JULES ([id number]) 1965 F Date Time Provider Department 07/19/23 JEANIE MURPHY During your visit today, we [...] this time. PCC instructed patient to call [phone] with any questions or concerns. 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 - acetylcyst/ynmhkiG47/levomefol (METAFOLBIC PLUS ORAL) Take by mouth. - [...] daily at bedtime. - blood sugar diagnostic ([employer] Display SystemUCH ULTRA TEST) test strip USE TO TEST [...] leg s (more content not included)...[facility] 2023 NoteHNO ID: [id number] Author: Williams Rubin MD Service: ? Author [...] am routing the encounter to the front sight attacher Yes I am sending a mychart note to the patient. No No coverage found. : the patient will be contacted to notify them they need a Colorectal Cancer Screen I have placed the following orders: Williams Rubin MD 2023 11:51 [facility]12-14-2023 NoteHNO ID: [id number] Author: Jeanie Murphy RN Service: ? Author Type: Registered Nurse Type: Progress Notes Filed: 06/27/2023 1:35 PM Note Text: PRIMARY CARE COORDINATION QUICK NOTE Provider Action/FYI Patient identified by name and date . PCC tried to contact patient for patient outreach. PCC left phone number [phone] for patient to contact PCC. Jeanie Murphy RN June 27, 2023 1:34 [facility]12-14-2023 History of Present illness Narrative* Jeanie Murphy RN - 06/27/2023 1:34 PM EST PRIMARY CARE COORDINATION QUICK NOTE Provider Action/FYI Patient identified by name and date . PCC tried to contact patient for patient outreach. PCC left phone number [phone] for patient to contact PCC. Jeanie Murphy RN June 27, 2023 1:34 PM documented in this encounterMercer County Community Hospital12-14-2023 NotePatient Outreach (AGACM) MICHELLE JULES ([id number]) 1965 F Date Time Provider Department 06/27/23 JEANIE MURPHY [facility] During your visit today, we recorded the following information about you: Jeanie Murphy RN 06/27/2023 1:35 PM Signed PRIMARY CARE COORDINATION QUICK NOTE Provider Action/FYI Patient identified by name and date . PCC tried to contact patient for patient outreach. PCC left phone number [phone] for patient to contact PCC. 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 - acetylcyst/mnefqwA85/levomefol (METAFOLBIC PLUS ORAL) Take by mouth. - [...] daily at bedtime. - blood sugar diagnostic (LaunchTrack ULTRA TEST) test strip USE TO TEST [...] 05/20/2023 Encounter Status:Closed by JEANIE MURPHY on 06/27/23[facility] 06-26-2023 Miscellaneous Notes* Telephone Encounter - [...] 15, 2023 and she has worked with nursing home social worker and patient outreach to get [...] her know and will let our front sight attacher know as well. Vaccines -She received her COVID booster this week and I documented this in the chart. documented in this encounterMercer County Community Hospital12-07-2023 Miscellaneous Notes* Telephone Encounter - Maria A Velarde LPN - 06/20/2023 3:46 PM EST Prior authorization for Basaglar radhapen 100unit/ml has been submitted via WUT. Awaiting determination. documented in this encounterMercer County Community Hospital12-06-2023 NoteHNO ID: [id number] Author: Sonia Carrera RPh Service: ? Author [...] also meet financial cut offs. Sonia Carrera [facility]12-06-2023 History of Present illness Narrative* Sonia Carrera [...] also meet financialcut offs. Sonia Carrera RPh A * Jeanie Murphy RN - 06/18/2023 3:47 [...] her until the new year. PCC contacted [place] to confirm patient couldnot get insulin and they confirmed that the medication was coming up as Not Eligible for Date of Service. PCC contacted [employer] to make sure there was no errors in patient's coverage and [employer] confirmed patient's insurance was terminated on 06/13 2023. The reference number for [place] was [id number]. Patient aware she has Pharm D appointment on 07/03/2023 PCC instructed patient to call [phone] with any questions or concerns. Health leads [...] Colorectal Cancer Screening 09/27/2021 Covid-19 Vaccine 03/15/2023 Eating Disorder Psychologist plan for next outreach: Will follow-up 1 week Signature: Jeanie Murphy RN June 18, 2023 documented in this encounterMercer County Community Hospital12-05-2023 NoteHNO ID: [id number] Author: Jeanie Murphy RN Service: ? Author [...] her until the new year. PCC contacted [place] to confirm patient could not get insulin and they confirmed that the medication was coming up as Not Eligible for Date of Service. PCC contacted [employer] to make sure there was no errors in patient's coverage and [employer] confirmed patient's insurance was terminated on 06/13 2023. The reference number for this call was [id number]. Patient aware she has Pharm D appointment on 07/03/2023 PCC instructed patient to call [phone] with any questions or concerns. Health leads [...] Colorectal Cancer Screening 09/27/2021 Covid-19 Vaccine 03/15/2023 Eating Disorder Psychologist plan for next outreach: Will follow-up 1 week Signature: Jeanie Murphy RN June 18[facility]12[facility] Miscellaneous Notes* Telephone Encounter - Maria A Martinez - 06/18/2023 10:48 AM EST Patient rescheduled for 07/03/23 with Willis Espinoza * Telephone Encounter - Maria A Martinez - 06/18/2023 10:40 AM EST ----- Message from Delia Bright sent at 06/18/2023 10:09 AM EST ----- [address] [place] [address]/FAMP ACC/Cfm, Pharm D Clinic Ag/Patient wants to schedule an appointment Subject Line Format: Medicine / Homar Vasques MD / [Issue] Select Department Name For Pool Routing Assistance: FAMP AG ACC CFM => AG [facility]AMP ACC CFM APPT CTR TRIAGE POOL [[id number]] Patient: Michelle Jules Date of : 1965 [...] other than patient: N/A Best contact number: [phone] Thank you, Delia Bright June 18, 2023 10:09 AM documented in this encounterMercer County Community Hospital12-05-2023 NotePatient Outreach (AGA) MICHELLE JULES ([id number]) 1965 F Date Time Provider Department 06/18/23 JEANIE MURPHY [facility] During your visit today, we recorded the following information about you: Jeanie Murphy, RN 06/19/2023 10:18 AM Signed AG PRIMARY [...] her until the new year. PCC contacted [place] to confirm patient could not get insulin and they confirmed that the medication was coming up as Not Eligible for Date of Service. PCC contacted [employer] to make sure there was no errors in patient's coverage and [employer] confirmed patient's insurance was terminated on 06/13 2023. The reference number for this call was [id number]. Patient aware she has Pharm D appointment on 07/03/2023 PCC instructed patient to call [phone] with any questions or concerns. 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 - acetylcyst/gupljfX53/levomefol (METAFOLBIC PLUS ORAL) Take by mouth. - [...] daily at bedtime. - blood sugar diagnostic (SimpliFieldTOUCH ULTRA TEST) test strip USE TO TEST BLOOD SUGAR THREE TIMES A DAY - aspirin, enteric coated (ECOT (more content not included)...[facility]12-04-2023 Miscellaneous Notes* Telephone Encounter - Williams Rubin MD - 06/17/2023 5:46 PM ESTSummary: Persistant Hyperglycemia I called patient regarding fasting sugars staying at 300-400s She states: - She would like all meds sent to [place] pharmacy - Ran out of long acting [...] well. Williams Rubin MD documented in this encounterMercer County Community Hospital12-01-2023 Miscellaneous Notes* Telephone Encounter - Hossein Alexander [...] as well. Please advise documented in this encounterMercer County Community Hospital11-07-2023 Miscellaneous Notes* Telephone Encounter - Williams Rubin MD - 05/21/2023 8:53 PM EST Addressed during visit on 05/20/23. Williams Rubin MD * Telephone Encounter - Tamica Beatty LPN - 04/15/2023 2:25 PM EDT Pt calling and inquiring about her Ozempic DENIAL. Please advise. documented in this encounterMercer County Community Hospital11-07-2023 NoteHNO ID: [id number] Author: Jamie Aggarwal, DO Service: ? Author [...] for furthur details. Jamie Aggarwal, [facility]11-06-2023 NoteHNO ID: [id number] Author: Williams Rubin MD Service: ? Author Type: Resident Type: Progress Notes Filed: 05/21/2023 3:58 PM Note Text: [facility] [address] [place] [address] Director Of Payroll Center / [address] [place], [place] [address] Visit Date: May 19, 2023 Name: Michelle Jules Date of : 1965 MRN/E #: [id number] Subjective Patient is a 57 year old [...] corn, salads - Once/week exercising. Caregiver for xzdqdr-qw-nyp Inadequate control of diabetes despite documented complaint [...] focal de (more content not included)...[facility] 05-06-2023 Miscellaneous Notes* Telephone Encounter - Faisal Patel - 05/06/2023 4:01 PM EDT Called pt and message came up that the phone can not go through. Pt missed 05/01 pharm appt. Will send letter Faisal Patel documented in this encounterMercer County Community Hospital10-18-2023 Miscellaneous Notes* Telephone Encounter - Sonia Carrera RPh - 05/01/2023 2:48 PM EDT Patient no showed to appt today. Unable to reach via telephone. See other note from pharmD. Letter to be sent. HbA1c ordered Hemoglobin A1C (POCT) Date Value Ref Range Status 01/22/2023 14.7 (A) 4.2 - 5.6 % Final Comment: Location:[facility] Director Of Payroll Center, [address], [place], [address] Point of care (POC) Hemoglobin A1c (HGBA1C) [...] specific diabetes management situations: The POC device manufacturer's service representative provides a normal range of 4.2% to 6.5% for the HGBA1C POC test. However, the [place] [employer] guidelines indicate that patients with [...] neuropathy, with long-term current use of insulin ([facility]) -ICD9: 250.60, 357.2, V58.67, ICD10: E11.40, Z79.4 - HGB A1C Sonia Carrera RPh documented in this encounterMercer County Community Hospital10-06-2023 History of Present illness Narrative* Jeanie Murphy RN - 04/19/2023 11:27 AM EDT PRIMARY CARE COORDINATION QUICK NOTE Provider Action/FYI Patient identified by name and date . PCC attempted to contact patient. Phone number not working. PCC will attempt to contact patient again at a later date. Jeanie Murphy RN April 19, 2023 11:32 AM documented in this encounterMercer County Community Hospital09-22-2023 History of Present illness Narrative* Williams Rubin [...] in any hospital and/or ED outside the [facility] in the Past 6 months? No I [...] Incontinence Jeanie Murphy RN documented in this encounterMercer County Community Hospital09-20-2023 Miscellaneous Notes* Telephone Encounter - Maria A Velarde LPN - 04/03/2023 10:58 AM EDT Prior authorization for Ozempic 2 mg/ 3 mL pen has been submitted via WUT. Awaiting determination. documented in this encounterMercer County Community Hospital09-15-2023 Instructions* Patient Instructions* Jay Her DO - 03/29/2023 3:30 PM EDT -Increase to glargine 45 units in the morning and 45 units in the evening -STOP taking zoloft (sertraline), and START taking cymbalta (duloxetine) -STOP enalapril documented in this encounterMercer County Community Hospital09-15-2023 History of Present illness Narrative* Jay Her DO - 03/29/2023 2:39 PM EDT Images from the original note were not included. [facility] [address] [place] [address] Director Of Payroll Center / [facility] [address] [place] [address] Visit Date: March 29, 2023 Name: Michelle Jules Date of : 1965 MRN/E #: [id number] Subjective Patient is a 57 year old [...] neuropathy, with long-term current use of insulin (FORMERLY [facility]) -ICD9: 250.60, 357.2, V58.67, ICD10: E11.40, Z79.4 [...] neuropathy. Jay Her DO Family Medicine, PGY-III [facility] documented in this encounterMercer County Community Hospital09-12-2023 Miscellaneous Notes* Telephone Encounter - Faviola Sun [...] Itching Simvastatin Other: See Comments myalgia (home) [phone] (work) Last Office Visit Date: 03/15/2023 Last [facility] Visit: Visit date not found Future Appointment: 03/29/2023 The patients preferred pharmacy has been captured for this encounter? yes Request is for script(s) to be escript to pharmacy. Faviola Sun LPN documented in this encounterMercer County Community Hospital09-11-2023 History of Present illness Narrative* Williams Rubin MD - 03/25/2023 12:31 PM EDTSummary: Referral to [facility] Making referral to Dr. Carrera [facility] for diabetes management. Diabetes is uncontrolled. Patienthas appointment with [facility] on 03/29/23. Williams Rubin MD documented in this encounterMercer County Community Hospital09-01-2023 Nurse Note* Lilli Rascon LPN - 03/15/2023 3:45 PM EDT Immunization History - pneumococcal (PCV20) vaccine, 20 valent (PREVNAR 20) (Given) - Date: 03/15/2023 - Lot #: [id number] - Dose: 0.5 mL - Site: Left deltoid - Dip Tanker: Carlypsorashi - Given By: LILLI RASCON - Expiration Date: 05/14/2024 Immunizations were given as ordered. Vaccination information sheet(s) given. Lilli Rascon LPN documented in this encounterMercer County Community Hospital09-01-2023 Instructions* Patient Instructions* Manny Shields MD - [...] high blood pressure. As reported in the [place] Journal of Medicine, the DASH diet, which [...] prepared soups. 7.) Shake em Up! 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 Start with a cup of low-fat [...] with shredded low-fat cheese. documented in this encounterMercer County Community Hospital09-01-2023 History of Present illness Narrative* Manny Shields MD - 03/15/2023 2:40 PM EDT Images from the original note were not included. [facility] Family Medicine [address] [facility] Director Of Payroll Center / [address] [place], [place] [address] Visit Date: March 14, 2023 Name: Michelle Jules Date of : 1965 MRN/E #: [id number] Chief Complaint: No chief complaint on file. [...] SOFTENER) 100 mg tab Take by mouth. acetylcyst/siyfleO83/levomefol (METAFOLBIC PLUS ORAL) Take by mouth. Pramipexole 0.75 mg tablet Take 1 tablet by mouth daily at bedtime. (Patient taking differently: Take 1 mg by mouth daily at bedtime.) blood sugar diagnostic (Broadcast Grade Weather [employer] Channel Branding Graphics Display SystemUCH ULTRA TEST) test strip USE TO TEST [...] before meals and at bedtime. Blood-Glucose Meter (SimpliFieldTOUCH ULTRA2) monitoring kit 1 Each as needed. [...] 4.00 k/uL Monocytes % 7.4 % Abs [place] 0.43 <0.87 k/uL Eosinophils % 1.5 % [...] neuropathy, with long-term current use of insulin (FORMERLY [facility]) - poorly controlled, recent A1C 14.7 - [...] bedtime for 90 days. - CONSULT TO [facility] (PPG ONLY) -assist with CGM [...] 2023 Time: 10:04 PM documented in this encounterMercer County Community Hospital08-29-2023 Miscellaneous Notes* Telephone Encounter - Lilli Rascon [...] Itching Simvastatin Other: See Comments myalgia (home) [phone] (work) Last Office Visit Date: 03/01/2023 Last [facility] Visit: Visit date not found Future Appointment: 03/15/2023 The patients preferred pharmacy has been captured for this encounter? yes Request is for script(s) to be escript to pharmacy. Lilli Rascon LPN documented in this encounterMercer County Community Hospital08-21-2023 Miscellaneous Notes* Telephone Encounter - Aby Bahena [...] Itching Simvastatin Other: See Comments myalgia (home) [phone] (work) Last Office Visit Date: 03/01/2023 Last [facility] Visit: Visit date not found Future Appointment: 03/15/2023 The patients preferred pharmacy has been captured for this encounter? not asked Request is for script(s) to be escript to pharmacy. Aby Bahena LPN documented in this encounterMercer County Community Hospital08-18-2023 History of Present illness Narrative* Williams Rubin MD - 03/01/2023 2:20 PM EDT [facility] [address] [place] [address] Director Of Payroll Center / [address] [place] [address] Visit Date: March 01, 2023 Name: Michelle Jules Date of : 1965 MRN/E #: [id number] Subjective Patient is a 57 year old [...] neuropathy, with long-term current use of insulin ([facility]LY [facility]) -ICD9: 250.60, 357.2, V58.67, ICD10: E11.40, Z79.4 [...] MAGNESIUM) TABLET 3. Coronary artery disease involving [place] heart without angina pectoris, unspecified vessel or lesion type - ICD9: 414.01, ICD10: I25.10 - ASPIRIN 81 MG TABLET,DELAYED RELEASE - SPIRONOLACTONE 25 MG TABLET - ENALAPRIL MALEATE 2.5 MG TABLET - CARVEDILOL 25 MG TABLET 4. Restless leg syndrome - ICD9: 333.94, ICD10: G25.81 - PRAMIPEXOLE 0.75 MG TABLET Williams Rubin MD Family Medicine, PGY-I [facility] documented in this encounterMercer County Community Hospital07-18-2023 History of Present illness Narrative* Ronny Wheeler MD - 01/29/2023 3:00 PM EDT Images from the original note were not included. [facility] [place] [facility] SECTION OF CARDIAC PACING and ELECTROPHYSIOLOGY OUTPATIENT VISIT DATE January 29, 2023 OUTPATIENT VISIT TYPE NEW PRIMARY CARE PHYSICIAN: Homar Vasques [address] [place] [address] REFERRING PHYSICIAN: No referring provider defined for this encounter. HISTORY OF PRESENT ILLNESS: 57-year-old female with history of essential hypertension, diabetes, obesity, nonischemic cardiomyopathy, RESISTOR INSPECTOR-D device implantation in 2014 at [facility], status post ICD PPG replacement for premature depletion at [facility] in 2019, moved to [place] and now moved back, has not been [...] 56 tablet^Rfl: 3 flash glucose scanning reader (Live Gamer LANCE 2 READER)^Use to check glucose before [...] CLINIC () 2. Cardiac resynchronization therapy defibrillator (RESISTOR INSPECTOR-D) in place - ICD9: V45.02, ICD10: Z95.810 -Last device interrogation 2019, we will arrange for initial evaluation at the device clinic and subsequent remote follow-up. 3. Primary hypertension - ICD9: 401.9, ICD10: I10 - Controlled - Continue current medications Ronny Wheeler MD CONTACT INFORMATION: Ronny Wheeler MD documented in this encounterMercer County Community Hospital07-18-2023 Nurse Note* Trinity Arriaza MA - 01/29/2023 2:24 PM EDT Patient denies any cardiac issues or symptoms. documented in this encounterMercer County Community Hospital2023 Miscellaneous Notes* Telephone Encounter - Isabel Newman - 01/24/2023 3:25 PM EDT Referral to Gastroenterology entered into the [facility] portal on 01/24/23. Confirmation number [id number]. documented in this encounterMercer County Community Hospital07-11-2023 Instructions* Patient Instructions* Jay Her DO - 01/22/2023 2:39 PM EDT -Get labs done -Start mealtime insulin at 8 units for breakfast, lunch, and dinner -Check your blood sugars first thing in the morning and at all mealtimes. Write these numbers down and bring to next visit -Get records of your sleep study sent to us -Follow-up in 4-6 weeks documented in this encounterMercer County Community Hospital07-11-2023 History of Present illness Narrative* Jay Her DO - 01/22/2023 2:00 PM EDT Images from the original note were not included. [facility] [address] [facility] Director Of Payroll Center / [address] [place], [place] [address] Visit Date: January 22, 2023 Name: Michelle Jules Date of : 1965 MRN/E #: [id number] Subjective Patient is a 57 year old year old female presenting in the office today with the following: Here to establish care Moved ere from [place] to take care of family member T2DM [...] neuropathy, with long-term current use of insulin (FORM[facility]LY [facility]) -ICD9: 250.60, 357.2, V58.67, ICD10: E11.40, Z79.4 - Uncontrolled - Restart mealtime insulin with lispro 0. Previously was on lispro 26units at mealtimes [...] rec. Jay Her DO Family Medicine, PGY-II [facility] * Georgette Ness LPN - 01/22/2023 1:57 PM EDT Unable to review medications, not sure which paper is up too date. Georgette Ness LPN documented in this encounterMercer County Community Hospital07-11-2023 Miscellaneous Notes* Telephone Encounter - Maria Victoria [...] Maria Victoria Gage RN documented in this encounterMercer County Community Hospital10-12-2022 [id number] [place] [id number] PERSONAL HISTORY AND PHYSICAL : [phone] Signed Name: MICHELLE JULES MRUN: [id number] : 1965 Loc: [facility] Age / Sex: 56/ F Adm Status: REG R Adm Date:04/25/22 Room/Bed: PRIMARY CARE PHYSICIAN: Ha [...] The patient states that she is moving [place] at the end of the month. The [...] 56-year-old female. 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 She is awake, alert and oriented x3. [...] to barely palpable bila (more content not included)...[facility]09-26-2022 Instructions* Patient Instructions* Griselda Lopez RN - 04/09/2022 10:46 AM EDT Stop Furosemide (Lasix) Start Torsemide (Demadex) 40 mg twice a day No more than 2 gm sodium daily Follow 2 liter fluid restriction Monitor weight daily/log given. Bring to office appointment Complete labs couple days before appointment Follow up in 2 weeks documented in this [id number] History of Present illness Narrative* Milka Rodriguez MD - 04/09/2022 10:35 AM EDT Images from the original note were not included. [facility] Subjective Michelle Jules is a 56 y.o. female seen in the office today for Follow-up (6 mht FU non-ischemic cardiomyopathy/increased weight and edema per field case manager Polina) HPI: HPI Michelle Jules is a [...] on 10/13/2021. Last device check on 01/29/2022: RESISTOR INSPECTOR-D REMOTE Check Notes/Summary: STABLE DEVICE FUNCTION. CRTP: [...] essential HTN -Controlled, no changes. History of RESISTOR INSPECTOR-D -Last device check in January she is paced 100% -No arrhythmias seen Obesity -Commend weight loss and exercise program Type 2 diabetes -Managed by PCP Dyslipidemia -Managed by PCP Other Tests Ordered: No orders of the defined types were placed in this encounter. Follow-Up Ordered: 2 weeks Milka Rodriguez MD [facility] [address] [place] [address] * Krupa Hercules MA - 04/09/2022 10:29 [...] patient is not nervous/anxious. documented in this [id number] Evaluation note* Date Code Description Provider 04/03/2022 L97.412 Non-pressure chr onic ulcer of right heel and midfoot with fat layer exposed CAIO Vergara 04/03/2022 L97.421 Non-pressure chr onic ulcer of left heel and midfoot limited to breakdown of skin Sly Nix DPM 04/03/2022 M79.671 Pain in right foot CAIO Vergara 04/03/2022 M79.672 Pain in left foot CAIO Vergara 04/03/2022 B35.1 Tinea unguium Sly Newton s, [facility] 04/03/2022 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 mellitus with diabetic polyneuropathy CAIO Vergara 04/03/2022 I87.2 Venous insuffici ency (chronic) (peripheral) CAIO Vergara 04/03/2022 R60.0 Localized edema Sly Del Rio, [facility] 04/03/2022 Z68.37 Body mass index [BMI] [...] 12/12/2021 B35.1 Tinea unguium Sly Newton s, DPM 12/12/2021 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 mellitus with diabetic polyneuropathy Sly Nix, DPM 11/23/2021 G47.33 Obstructive slee p apnea (adult) (pediatric) Vlad Alaniz MD, [facility], [facility] 11/23/2021 G47.10 Hypersomnia, unspecified Shanell Alaniz MD, [facility], [facility] 11/23/2021 R53.81 Other malaise Vlad Alaniz MD, [facility], [facility] 11/23/2021 R53.83 Other fatigue Vlad Alaniz MD, [facility], [facility] 11/23/2021 I10 Essential (primary) hyperten corinne Vlad Alaniz MD, [facility], [facility] 11/13/2021 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, right ankle and foot Sly HernandezCAIO Torres 11/13/2021 M24.871 Other specific j oint derangements of right ankle, not elsewhere classified Sly HernandezCAIO Torres 11/13/2021 M65.871 Other synovitis and tenosynovitis, right ankle and foot Sly DavidCAIO Torres 11/13/2021 M25.571 Pain in right an kle and joints of right foot Sly DavidCAIO Torres 11/13/2021 R60.0 Localized edema Sly DavidMiguelina Del Rio, [facility] 11/13/2021 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 mellitus with diabetic polyneuropathy CAIO Vergara 11/13/2021 Z68.34 Body mass index [BMI] 34.0-34.9, adult CAIO Vergara 10/09/2021 G89.18 Other acute postprocedural p ain CAIO Vergara 10/09/2021 Z09 Encounter for fo llow-up examination after completed treatment for conditions other than malignant neoplasm CAIO Vergara 10/09/2021 M76.61 Achilles tendinitis, right l eg Sly Nix [facility] 10/09/2021 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 Work Phone: 1(120) 417-689607-14-2022 Evaluation note* Date Code Description Provider 04/03/2022 [...] l eg Sly De Santiago Boyd, DPM 01/11/2022 M24.871 Other specific j oint derangements of right ankle, not elsewhere classified Sly DavidMiguelina Nix, DPM 01/11/2022 M65.871 Other synovitis and tenosynovitis, right ankle and foot Sly HernandezMiguelina Nix, DPM 01/11/2022 M25.571 Pain in right an kle and joints of right foot Sly HernandezMiguelina Nix, DPM 01/11/2022 I87.2 Venous insuffici ency (chronic) (peripheral) Sly DavidMiguelina Nix, DPM 01/11/2022 R60.0 Localized edema Sly Del Rio, DPM 01/11/2022 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 mellitus with diabetic polyneuropathy Sly HernandezMiguelina Nix, DPM 12/12/2021 M24.871 Other specific j oint derangements of right ankle, not elsewhere classified Sly DavidCAIO TorresM 12/12/2021 M76.61 Achilles tendinitis, right l eg Sly De Santiago Boyd, DPM 12/12/2021 M65.871 Other synovitis and tenosynovitis, right ankle and foot Sly HernandezMiguelina Nix DPM 12/12/2021 M25.571 Pain in right an kle and joints of right foot Sly DavidMiguelina Nix, DPM 12/12/2021 I87.2 Venous insuffici ency (chronic) (peripheral) Sly DavidMiguelina Nix, DPM 12/12/2021 R60.0 Localized edema Sly Del Rio, DPM 12/12/2021 B35.1 Tinea unguium Sly mcguire, DPM 12/12/2021 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 mellitus with diabetic polyneuropathy Sly Nix, [facility] 11/23/2021 G47.33 Obstructive slee p apnea (adult) (pediatric) Vlad Alaniz MD, [facility], [facility] 11/23/2021 G47.10 Hypersomnia, unspecified Shanell Alaniz MD, [facility], [facility] 11/23/2021 R53.81 Other malaise Vlad Alaniz MD, [facility], [facility] 11/23/2021 R53.83 Other fatigue Vlad Alaniz MD, [facility], [facility] 11/23/2021 I10 Essential (primary) hyperten corinne Vlad Alaniz MD, [facility], [facility] 11/13/2021 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, right ankle and foot Sly Nix [facility] 11/13/2021 M24.871 Other specific j oint derangements of right ankle, not elsewhere classified Sly Nix [facility] 11/13/2021 M65.871 Other synovitis and tenosynovitis, right ankle and foot Sly Nix DP 11/13/2021 M25.571 Pain in right an kle and joints of right foot Sly Nix [facility] 11/13/2021 R60.0 Localized edema Sly Del Rio, [facility] 11/13/2021 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 mellitus with diabetic polyneuropathy Sly Nix [facility] 11/13/2021 Z68.34 Body mass index [BMI] 34.0-34.9, adult Sly Nix [facility] 10/09/2021 G89.18 Other acute postprocedural p ain Sly Nix [facility] 10/09/2021 Z09 Encounter for fo llow-up examination after completed treatment for conditions other than malignant neoplasm Sly Nix DPM 10/09/2021 M76.61 Achilles tendinitis, right l eg Sly Nix DPM 10/09/2021 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 Work Phone: 1(288) 825-815806-30-2022 Evaluation note* Date Code Description Provider 01/11/2022 M76.61 Achilles tendinitis, right l eg Sly Nix, DP 01/11/2022 M24.871 Other specific j oint derangements of right ankle, not elsewhere classified Sly Nix, DP 01/11/2022 M65.871 Other synovitis and tenosynovitis, right ankle and foot Sly Nix, DP 01/11/2022 M25.571 Pain in right an kle and joints of right foot Sly Nix DPM 01/11/2022 I87.2 Venous insuffici ency (chronic) (peripheral) Sly Nix, DP 01/11/2022 R60.0 Localized edema Sly De Santiago Romero mederos, [facility] 01/11/2022 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 mellitus with diabetic polyneuropathy Sly Nix, DP 12/12/2021 M24.871 Other specific j oint derangements of right ankle, not elsewhere classified Sly Nix DP 12/12/2021 M76.61 Achilles tendinitis, right l eg Sly Nix, DP 12/12/2021 M65.871 Other synovitis and tenosynovitis, right ankle and foot Sly Nix DP 12/12/2021 M25.571 Pain in right an kle and joints of right foot Sly De Santiago Boyd DP 12/12/2021 I87.2 Venous insuffici ency (chronic) (peripheral) Sly DavidMiguelina Nix [facility] 12/12/2021 R60.0 Localized edema Sly Del Rio, [facility] 12/12/2021 B35.1 Tinea unguium Sly mcguire, DP 12/12/2021 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 mellitus with diabetic polyneuropathy Sly Nix DP 11/23/2021 G47.33 Obstructive slee p apnea (adult) (pediatric) Vlad Alaniz MD, [facility], [facility] 11/23/2021 G47.10 Hypersomnia, unspecified Shanell Alaniz MD, [facility], [facility] 11/23/2021 R53.81 Other malaise Vlad Alaniz MD, [facility], [facility] 11/23/2021 R53.83 Other fatigue Vlad Alaniz MD, [facility], [facility] 11/23/2021 I10 Essential (primary) hyperten corinne Vlad Alaniz MD, [facility], [facility] 11/13/2021 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, right ankle and foot Sly Nix [facility] 11/13/2021 M24.871 Other specific j oint derangements of right ankle, not elsewhere classified Sly Nix DP 11/13/2021 M65.871 Other synovitis and tenosynovitis, right ankle and foot Sly Nix DP 11/13/2021 M25.571 Pain in right an kle and joints of right foot CAOI Vergara 11/13/2021 R60.0 Localized edema Sly Del Rio, [facility] 11/13/2021 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 mellitus with diabetic polyneuropathy Sly Nix [facility] 11/13/2021 Z68.34 Body mass index [BMI] 34.0-34.9, adult Sly Nix [facility] 10/09/2021 G89.18 Other acute postprocedural p ain CAIO Vergara 10/09/2021 Z09 Encounter for fo llow-up examination after completed treatment for conditions other than malignant neoplasm CAIO Vergara 10/09/2021 M76.61 Achilles tendinitis, right l eg CAIO Vergara 10/09/2021 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, right ankle Sly HernandezMiguelina Nix, DPM 10/09/2021 M77.31 Calcaneal spur, right foot J greg HernandezMiguelina Nix, DPM 10/09/2021 M79.671 Pain in right foot Sly De Santiago Boyd, DPM 10/09/2021 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 mellitus with diabetic polyneuropathy Sly HernandezMiguelina Nix, DPM 10/09/2021 Z91.19 Patient's noncom pliance with other medical treatment and regimen Sly Nix, DPM 10/09/2021 Z68.34 Body mass index [BMI] 34.0-34.9, adult Sly Nix, DPM 10/03/2021 Z68.34 Body mass index [BMI] 34.0-34.9, adult Vlad Alaniz MD, [facility], [facility] 09/18/2021 Z91.19 Patient's noncom pliance with other medical treatment and regimen Sly DavidMiguelina Nix, DPM 09/18/2021 G89.18 Other acute postprocedural p ain Sly DavidMiguelina Nix, DPM 09/18/2021 Z09 Encounter for fo llow-up examination after completed treatment for conditions other than malignant neoplasm Sly HernandezMiguelina Nix, DPM 09/18/2021 M76.61 Achilles tendinitis, right l eg Sly HernandezMiguelina Nix, DPM 09/18/2021 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, right ankle Sly HernandezMiguelina Nix, DPM 09/18/2021 M77.31 Calcaneal spur, right foot J greg HernandezMiguelina Nix, DPM 09/18/2021 M79.671 Pain in right foot Sly HernandezMiguelina Nix, DPM 09/18/2021 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 [...] right foot J shannanbhupendra HernandezMiguelina Nix, DPM 08/25/2021 M79.671 Pain in right foot Sly Nix, DPM 08/25/2021 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 mellitus with diabetic polyneuropathy Sly Nix, DPM 08/21/2021 M76.61 Achilles tendinitis, right l eg Sly Nix, DPM 08/21/2021 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, right ankle Sly Nix, DPM 08/21/2021 M77.31 Calcaneal spur, right foot J shannanbhupendra HernandezMiguelina Nix, DPM 08/21/2021 M79.671 Pain in right foot Sly Nix, DPM 08/21/2021 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 mellitus with diabetic polyneuropathy Sly Nix, [facility] 07/27/2021 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, right ankle Sly Nix, DP 07/27/2021 M76.61 Achilles tendinitis, right l eg Sly Nix, DP 07/27/2021 M77.31 Calcaneal spur, right foot J osepbhupendra De Santiago Boyd, [facility] 07/27/2021 M79.671 Pain in right foot Sly Nix, [facility] 07/27/2021 B35.1 Tinea unguium Sly DavidMiguelina Newton s, DP 07/27/2021 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 mellitus with diabetic polyneuropathy Sly HernandezMiguelina Nix, [facility] 07/27/2021 M20.42 Other hammer toe (s) (acquired), left foot Sly Nix, [facility] 07/27/2021 M20.41 Other hammer toe (s) (acquired), right foot Sly Nix, [facility] 07/27/2021 Z68.35 Body mass index [BMI] 35.0-35.9, adult Sly HernandezMiguelina Nix, CAIO Sly Nix, D.P.M. Work Phone: 1(541) 406-305305-31-2022 Evaluation note* Date Code Description Provider 12/12/2021 M24.871 Other specific j oint derangements of right ankle, not elsewhere classified Sly Nix, CAIO 12/12/2021 M76.61 Achilles tendinitis, right l eg Sly Nix, [facility] 12/12/2021 M65.871 Other synovitis and tenosynovitis, right ankle and foot Sly De Santiago Boyd [facility] 12/12/2021 M25.571 Pain in right an kle and joints of right foot Sly HernandezMiguelina Nix [facility] 12/12/2021 I87.2 Venous insuffici ency (chronic) (peripheral) Sly HernandezMiguelina Nix [facility] 12/12/2021 R60.0 Localized edema Sly DavidMiguelina Del Rio, [facility] 12/12/2021 B35.1 Tinea unguium Sly DavidMiguelina Newton s, [facility] 12/12/2021 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 mellitus with diabetic polyneuropathy Sly Nix, DP 11/23/2021 G47.33 Obstructive slee p apnea (adult) (pediatric) Vlad Alaniz MD, [facility], [facility] 11/23/2021 G47.10 Hypersomnia, unspecified Shanell Alaniz MD, [facility], [facility] 11/23/2021 R53.81 Other malaise Vlad Alaniz MD, [facility], [facility] 11/23/2021 R53.83 Other fatigue Vlad Alaniz MD, [facility], [facility] 11/23/2021 I10 Essential (primary) hyperten corinne Vlad Alaniz MD, [facility], [facility] 11/13/2021 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, right ankle and foot Sly Nix DP 11/13/2021 M24.871 Other specific j oint [...] diabetes mellitus with diabetic polyneuropathy Sly Nix [facility] 11/13/2021 Z68.34 Body mass index [BMI] 34.0-34.9, adult Sly Nix [facility] 10/09/2021 G89.18 Other acute postprocedural p ain Sly Nix [facility] 10/09/2021 Z09 Encounter for fo llow-up examination after completed treatment for conditions other than malignant neoplasm Sly Nix DPM 10/09/2021 M76.61 Achilles tendinitis, right l eg Sly Nix DPM 10/09/2021 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, right ankle Sly Nix DPM 10/09/2021 M77.31 Calcaneal spur, right foot J oseph Jonnathan Nix DPM 10/09/2021 M79.671 Pain in right foot [...] index [BMI] 34.0-34.9, adult Vlad Alaniz MD, [facility], [facility] 09/18/2021 Z91.19 Patient's noncom pliance with [...] M77.31 Calcaneal spur, right foot J oserickbhupendra HernandezMiguelina Nix, DPM 09/18/2021 M79.671 Pain in right foot Sly HernandezMiguelina Nix, DPM 09/18/2021 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 mellitus with diabetic polyneuropathy Sly De Santiago Boyd, DPM 09/18/2021 Z68.34 Body mass index [BMI] 34.0-34.9, adult Sly De Santiago Boyd, DPM 09/05/2021 Z91.19 Patient's noncom pliance with other medical treatment and regimen Sly De Santiago Boyd DPM 09/05/2021 G89.18 Other acute postprocedural p vahen Sly HernandezMiguelina Nix, DPM 09/05/2021 Z09 Encounter for fo llow-up examination after completed treatment for conditions other than malignant neoplasm Sly DavidMiguelina Nix, DPM 09/05/2021 M76.61 Achilles tendinitis, right l eg Sly DavidMiguelina Nix, DPM 09/05/2021 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, right ankle Sly Nix, DPM 09/05/2021 M77.31 Calcaneal spur, right foot J greg DavidMiguelina Boyd, DPM 09/05/2021 M79.671 Pain in right [...] right foot J greg DavidMiguelina Nix, DPM 08/25/2021 M79.671 Pain in right foot Sly Nix, DPM 08/25/2021 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 mellitus with diabetic polyneuropathy Sly Nix, DPM 08/21/2021 M76.61 Achilles tendinitis, right l eg Sly Nix, DPM 08/21/2021 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 Boyd, DPM 07/27/2021 M79.671 Pain in right foot [...] M77.32 Calcaneal spur, left foot Lisseth Nix, [facility] 06/20/2021 M79.672 Pain in left foot Sly Nix [facility] 06/20/2021 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 mellitus with diabetic polyneuropathy Sly Nix [facility] 06/20/2021 Z68.36 Body mass index [BMI] 36.0-36.9, adult Sly Jonnathan CAIO Nix Naomi Lemos.P.M. Work Phone: 1(707) 281-160205-31-2022 Evaluation note* Date Code Description Provider 12/12/2021 M24.871 Other specific j oint derangements of right ankle, not elsewhere classified Sly De Santiago Boyd [facility] 12/12/2021 M76.61 Achilles tendinitis, right l eg Sly De Santiago Boyd [facility] 12/12/2021 M65.871 Other synovitis and tenosynovitis, right ankle and foot Sly De Santiago Boyd [facility] 12/12/2021 M25.571 Pain in right an kle and joints of right foot Sly Nix [facility] 12/12/2021 I87.2 Venous insuffici ency (chronic) (peripheral) Sly Nix [facility] 12/12/2021 R60.0 Localized edema Sly De Santiago Romero mederos, [facility] 12/12/2021 B35.1 Tinea unguium Sly Velazquezsharon mcguire, [facility] 12/12/2021 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 mellitus with diabetic polyneuropathy Sly De Santiago Boyd [facility] 11/23/2021 G47.33 Obstructive slee p apnea (adult) (pediatric) Vlad Alaniz MD, [facility], [facility] 11/23/2021 G47.10 Hypersomnia, unspecified Shanell Alaniz MD, [facility], [facility] 11/23/2021 R53.81 Other malaise Vlad Alaniz MD, [facility], [facility] 11/23/2021 R53.83 Other fatigue Vlad Alaniz MD, [facility], [facility] 11/23/2021 I10 Essential (primary) hyperten corinne Vlad Alaniz MD, [facility], [facility] 11/13/2021 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, right ankle and foot Sly Nix, DPM 11/13/2021 M24.871 Other specific j oint derangements of right ankle, not elsewhere classified Sly Nix, DPM 11/13/2021 M65.871 Other synovitis and tenosynovitis, right ankle and foot Sly De Santiago Boyd DPM 11/13/2021 M25.571 Pain in right an kle and joints of right foot Sly HernandezMiguelina Nix DPM 11/13/2021 R60.0 Localized edema Sly HernandezMiguelina Del Rio, DPM 11/13/2021 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 mellitus with diabetic polyneuropathy Sly HernandezCAIO TorresM 11/13/2021 Z68.34 Body mass index [BMI] 34.0-34.9, adult Sly De Santiago Boyd, DPM 10/09/2021 G89.18 Other acute postprocedural p ain Sly HernandezMiguelina Nix [facility] 10/09/2021 Z09 Encounter for fo llow-up examination after completed treatment for conditions other than malignant neoplasm Sly HernandezMiguelina Nix DPM 10/09/2021 M76.61 Achilles tendinitis, right l eg Sly DavidMiguelina Nix DPM 10/09/2021 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, right ankle Sly De Santiago Boyd DPM 10/09/2021 M77.31 Calcaneal spur, right foot J osepbhupendra De Santiago Boyd, DPM 10/09/2021 M79.671 Pain in right foot Sly HernandezCAIO TorresM 10/09/2021 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 mellitus with diabetic polyneuropathy Sly HernandezMiguelina Nix DPM 10/09/2021 Z91.19 Patient's noncom pliance with other medical treatment and regimen CAIO VergaraM 10/09/2021 Z68.34 Body mass index [BMI] 34.0-34.9, adult Sly DavidMiguelina Nix DPM 10/03/2021 Z68.34 Body mass index [BMI] 34.0-34.9, adult Vlad Alaniz MD, [facility], [facility] 09/18/2021 Z91.19 Patient's noncom pliance with other medical treatment and regimen CAIO VergaraM 09/18/2021 G89.18 Other acute postprocedural p ain [...] 09/18/2021 M77.31 Calcaneal spur, right foot J josselinsantos HernandezMiguelina Nix, DPM 09/18/2021 M79.671 Pain in right foot Sly HernandezMiguleina Nix, DPM 09/18/2021 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 [...] tarsus, right ankle Sly HernandezMiguelina Nix, DPM 09/05/2021 M77.31 Calcaneal spur, right [...] conditions other than malignant neoplasm Sly DavidMiguelina Nix, DPM 08/25/2021 G89.18 Other acute postprocedural [...] DPM 07/27/2021 M76.61 Achilles tendinitis, right l marvel Nix, DPM 07/27/2021 M77.31 Calcaneal spur, right [...] mass index [BMI] 35.0-35.9, adult CAIO Vergara Naomi Lemos.P.M. Work Phone: 1([phone] 916-192705-12-2022 Evaluation note* Date Code Description Provider 11/23/2021 G47.33 Obstructive slee p apnea (adult) (pediatric) Vlad Alaniz MD, [facility], [facility] 11/23/2021 G47.10 Hypersomnia, unspecified Shanell Alaniz MD, [facility], [facility] 11/23/2021 R53.81 Other malaise Vlad Alaniz MD, [facility], [facility] 11/23/2021 R53.83 Other fatigue Vlad Alaniz MD, [facility], [facility] 11/23/2021 I10 Essential (primary) hyperten corinne Vlad Alaniz MD, [facility], [facility] 11/13/2021 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, right ankle and foot Sly Nix [facility] 11/13/2021 M24.871 Other specific j oint derangements of right ankle, not elsewhere classified Sly Nix [facility] 11/13/2021 M65.871 Other synovitis and tenosynovitis, right ankle and foot Sly Nix [facility] 11/13/2021 M25.571 Pain in right an kle and joints of right foot CAIO Vergara 11/13/2021 R60.0 Localized edema Sly Del Rio, [facility] 11/13/2021 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 mellitus with diabetic polyneuropathy CAIO Vergara 11/13/2021 Z68.34 Body mass index [BMI] 34.0-34.9, adult Sly Nix [facility] 10/09/2021 G89.18 Other acute postprocedural p ain CAIO Vergara 10/09/2021 Z09 Encounter for fo llow-up examination after completed treatment for conditions other than malignant neoplasm Sly Nix DPM 10/09/2021 M76.61 Achilles tendinitis, right l eg CAIO Vergara 10/09/2021 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, [...] index [BMI] 34.0-34.9, adult Vlad [facility] MD, [facility] 09/18/2021 Z91.19 Patient's noncom pliance with [...] mass index [BMI] 36.0-36.9, adult Sly Nix, [facility] 06/13/2021 Z09 Encounter for fo llow-up examination after completed treatment for conditions other than malignant neoplasm Sly Nix, [facility] 06/13/2021 G89.18 Other acute postprocedural p ain Sly Nix, [facility] 06/13/2021 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 Work Phone: 1([phone] Evaluation note* Date Code Description Provider 11/23/2021 G47.33 Obstructive slee p apnea (adult) (pediatric) Vlad Alaniz MD, [facility], [facility] 11/23/2021 G47.10 Hypersomnia, unspecified Shanell Alaniz MD, [facility], [facility] 11/23/2021 R53.81 Other malaise Vlad Alaniz MD, [facility], [facility] 11/23/2021 R53.83 Other fatigue Vlad Alaniz MD, [facility], [facility] 11/23/2021 I10 Essential (primary) hyperten corinne Vlad Alaniz MD, [facility], [facility] 11/13/2021 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, right ankle and foot Sly Nix, DP 11/13/2021 M24.871 Other specific j oint derangements of right ankle, not elsewhere classified Sly Nix DP 11/13/2021 M65.871 Other synovitis and tenosynovitis, right ankle and foot Sly Nix [facility] 11/13/2021 M25.571 Pain in right an kle and joints of right foot CAIO Vergara 11/13/2021 R60.0 Localized edema Sly Del Rio, DP 11/13/2021 E11.42 Type 2 diabetes mellitus with diabetic polyneuropathy CAIO Vergara 11/13/2021 Z68.34 Body mass index [BMI] 34.0-34.9, adult Sly Nix [facility] 10/09/2021 G89.18 Other acute postprocedural p ain Sly Nix [facility] 10/09/2021 Z09 Encounter for fo llow-up examination after completed treatment for conditions other than malignant neoplasm CAIO Vergara 10/09/2021 M76.61 Achilles tendinitis, right l eg Sly Nix DP 10/09/2021 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..] DPM 09/05/2021 G89.18 Other acute postprocedural p vahen Sly De Santiago Boyd, DPM 09/05/2021 Z09 [...] 08/25/2021 M79.671 Pain in right foot Sly De Santiago Boyd, DPM 08/25/2021 E11.42 Type 2 diabetes mellitus with diabetic polyneuropathy Sly Nix, DPM 08/21/2021 M76.61 Achilles tendinitis, right l eg Sly Nix, DPM 08/21/2021 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, right ankle Sly Nix, DPM 08/21/2021 M77.31 Calcaneal spur, right foot Kendra De Santiago 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 Work Phone: 1([phone] 251-896604-01-2022 Evaluation + Plan note* Assessment & Plan Note - Abbey Oliveira CNP - 10/13/2021 1:16 PM EDTAssociated Problem(s): Benign essential HTN -Controlled, no changes. [id number] Miscellaneous Notes* Assessment & Plan Note - [...] check -Follow-up 6 months. documented in this [id number] Evaluation + Plan note* Assessment & Plan Note - Abbey Oliveira CNP - 10/13/2021 1:15 PM EDT Associated Problem(s): Nonischemic cardiomyopathy (HCC) -Nonischemic cardiomyopathy, functional class II. Recovered ejection fraction 45 to 50% now. -She is euvolemic on exam. -Continue carvedilol, Aldactone and losartan at current doses. -Continue Lasix 40 mg twice daily -Labs reviewed -Schedule device check -Follow-up 6 months. [id number] Instructions* Patient Instructions* Juany Harden RN - 10/13/2021 11:35 AM EDT No changes today 2. Follow up in 6 months documented in this [id number] History of Present illness Narrative* Krupa Hercules [...] General Cardiology Clinic Consult Heart & Vascular [facility] 10/13/2021 Patient: Michelle Jules Date [...] Systems: Review of systems performed by the certified ophthalmic medical technician, personally reviewed and viewable in the current [...] LDLCALC, LDLDIRECT, TRIG, HDL Abbey Oliveira CNP [facility], Heart and Vascular [address] [place] [address] [email or web address] documented in this [id number] Evaluation note* Date Code Description Provider 10/09/2021 Z68.34 Body mass index [BMI] 34.0-34.9, adult Sly Nix DPM 10/03/2021 Z68.34 Body mass index [BMI] 34.0-34.9, adult Vlad Alaniz MD, [facility], [facility] 09/18/2021 Z91.19 Patient's noncom pliance with [...] DPM 09/18/2021 M77.31 Calcaneal spur, right foot Kendra Nix, DPM 09/18/2021 M79.671 Pain in right foot Syl Nix, DPM 09/18/2021 E11.42 Type 2 diabetes mellitus with diabetic polyneuropathy Sly Nix, DPM 09/18/2021 Z68.34 Body mass index [BMI] 34.0-34.9, adult Sly Nix, DPM 09/05/2021 Z91.19 Patient's noncom pliance with other medical treatment and regimen Sly Nix, DPM 09/05/2021 G89.18 Other acute postprocedural p vahen Sly Nix, DPM 09/05/2021 Z09 Encounter for [...] index [BMI] 35.0-35.9, adult Sly Nix, JACEY Nix D.P.M. 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, right ankle Sly Nix, CAIO 10/09/2021 M77.31 Calcaneal spur, right foot J greg Nix, CAIO 10/09/2021 M79.671 Pain in right foot CAIO Vergara 10/09/2021 E11.42 Type 2 diabetes mellitus with diabetic polyneuropathy CAIO Vergara 10/09/2021 Z91.19 Patient's noncom pliance with other medical treatment and regimen Sly Nix DPM 10/09/2021 Z68.34 Body mass index [BMI] 34.0-34.9, adult CAIO Vergara 10/03/2021 Z68.34 Body mass index [BMI] 34.0-34.9, adult Vlad Alaniz MD, [facility], [facility] 09/18/2021 Z91.19 Patient's noncom pliance with other medical treatment and regimen Sly Nix DPM 09/18/2021 G89.18 Other acute postprocedural p michelle Nix, CAIO 09/18/2021 Z09 Encounter for fo llow-up examination after completed treatment for conditions other than malignant neoplasm Sly Nix DPM 09/18/2021 M76.61 Achilles tendinitis, right l eg Sly Nix, JACEY 09/18/2021 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 Work Phone: [phone] Reason for referral (narrative)* Refer to Reason for Referral Status Appt Ugo Herbert, [facility] Open Repair of Achil les Tendon with Removal of Bone Spurs/Reina's Deformity with Partial Detachment and Re-Attachment of Achilles Tendon with Suture Bridge of Right Foot/Heel 08/07/2021- Per [facility] Portal, patient with active coverage. PA initiated and right foot surgery procedure codes 50612 and 33818 approved with effective dates 08/07/2021 through 11/05/2021. Auth number [id number]. mj Sent 08/21/[address] [place] [address] [phone] [facility] Open Repair of Achil les Tendon with Removal of Bone Spurs/Reina's Deformity with Partial Detachment and Re-Attachment of Achilles Tendon with Suture Bridge -- All of the Left Foot/Heel CPT Codes Provided by Dr. Nix: [id number], [id number] 05/08/2021- Outpatient surgery procedure codes 69740 and 87542 approved with effective dates 05/08/2021 through 08/06/2021. Auth number [id number]. emeli Sent 06/05/[address] [place] [address] [phone] Gisselle LemosP.M. Work Phone: 1([phone]) [phone] Reason for referral (narrative)* Refer to Dr Reason for Referral Status Appt Ugo e [facility] Open Repair of Achil les Tendon with Removal of Bone Spurs/Reina's Deformity with Partial Detachment and Re-Attachment of Achilles Tendon with Suture Bridge of Right Foot/Heel 08/07/2021- Per [facility] Portal, patient with active coverage. PA initiated and right foot surgery procedure codes 40358 and 17469 approved with effective dates 08/07/2021 through 11/05/2021. Auth number [id number]. mj Sent 08/21/[address] [place] [address] [phone] Naomi Lemos.P.M. Work Phone: [phone] Evaluation note* Date Code Description Provider 06/13/2021 Z68.35 Body mass index [BMI] 35.0-3 5.9, adult Sly Nix DPM 06/05/2021 M92.62 Juvenile osteoch ondrosis of [...] Nix, DPM 03/30/2021 B35.1 Tinea unguium Sly Velazquezi s, DPM 03/30/2021 E11.42 Type 2 diabetes [...] PA-C 01/12/2021 L30.9 Dermatitis, unspecified Jamar Nix, DP 01/12/2021 B35.1 Tinea unguium Sly Velazquezi s, DP 01/12/2021 L60.0 Ingrowing nail Sly HernandezMiguelina Marcus rayna, DP 01/12/2021 M79.671 Pain in right foot Sly Nix, DP 01/12/2021 M79.672 Pain in left foot Sly Nix, DP 01/12/2021 E11.42 Type 2 diabetes mellitus with diabetic polyneuropathy Sly Nix, DP 01/12/2021 M20.42 Other hammer toe(s) (acquire d), left foot Sly Nix, DP 01/12/2021 M20.41 Other hammer toe(s) (acquire d), right foot Sly Nix, DPM 01/12/2021 R23.4 Changes in skin texture Jamar meng Jonnathan Nix, DP 12/14/2020 M17.0 Bilateral primary osteoarthr itis of knee Thomas Silva MD 12/14/2020 E11.42 Type 2 diabetes mellitus with diabetic polyneuropathy Thomas Silva MD 12/14/2020 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 Work Phone: 1([phone] Reason for referral (narrative)* Refer to Dr Reason for Referral Status Appt Ugo e [facility] Open Repair of Achil les Tendon with Removal of Bone Spurs/Reina's Deformity with Partial Detachment and Re-Attachment of Achilles Tendon with Suture Bridge -- All of the Left Foot/Heel CPT Codes Provided by Dr. Nix: [id number], 44650 05/08/2021- Outpatient surgery procedure codes 22538 and 43495 approved with effective dates 05/08/2021 through 08/06/2021. Auth number [id number]. mj Sent 06/05/2021 [address] [place], [place] [id number] [phone] [facility] 12/26/2020- I see whe re surgery was cancelled but authorization did come through which would be valid from 12/18/2020 through 03/18/2021 for one DOS. Auth number [id number]. Just an FYI in case patient would be cleared for surgery within that date frame. emeli Scheduled 12/27/2020 [address], [place] [id number] [phone] Gisselle LemosPGarry. Work Phone: 1([phone]) [phone] Evaluation note* Date Code Description Provider 05/04/2021 Z68.35 Body mass index [BMI] 35.0-35.9, adult Sly DavidMiguelina Nix, [facility] 03/30/2021 R23.4 Changes in skin texture Jamar Nix, [facility] 03/30/2021 M79.671 Pain in right foot Sly Nix [facility] 03/30/2021 M79.672 Pain in left foot Sly Nix [facility] 03/30/2021 B35.1 Tinea unguium Sly Newton s, [facility] 03/30/2021 E11.42 Type 2 diabetes mellitus with diabetic polyneuropathy CAIO Vergara 03/30/2021 M20.42 Other hammer toe (s) (acquired), left foot CAIO Vergara 03/30/2021 M20.41 Other hammer toe (s) (acquired), right foot CAIO Vergara 03/30/2021 I87.2 Venous insuffici ency (chronic) (peripheral) Sly DavidMiguelina Nix, DPM 03/30/2021 Z68.35 Body mass index [BMI] 35.0-35.9, adult Sly DavidMiguelina Nix, DPM 01/25/2021 G47.33 Obstructive slee p [...] 01/12/2021 M79.671 Pain in right foot Sly Nix DPM 01/12/2021 M79.672 Pain in left foot [...] diabetic polyneuropathy Thomas Silva MD 12/14/2020 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 Thomas Silva MD 11/17/2020 L84 Corns and callosities Brannon Silva MD 11/17/2020 L85.2 Keratosis puncta ta (palmaris et plantaris) CAIO VergaraM 11/17/2020 E11.42 Type 2 diabetes mellitus with diabetic polyneuropathy Thomas Silva MD 11/17/2020 L84 Corns and callosities Sly Nix DPM 11/17/2020 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 josue Silva MD 11/17/2020 M79.671 Pain in right foot Thomas reed MD 11/17/2020 R23.4 Changes in skin texture Jamar Nix, DPM 11/17/2020 M17.0 Bilateral primar y osteoarthritis of knee Thomas Silva MD 11/17/2020 M79.671 Pain in right foot Sly Nix, DPM 11/17/2020 E11.42 Type 2 diabetes mellitus with diabetic polyneuropathy Sly Nix, DP 11/17/2020 L85.3 Xerosis cutis Sly mcguire, DPM 11/17/2020 M20.42 Other hammer toe (s) (acquired), left foot CAIO VergaraM 11/17/2020 M20.41 Other hammer toe (s) (acquired), right foot Sly Nix, DP 11/17/2020 Z79.4 care home (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 of i nsmalcolm Nix, CAIOM 11/15/2020 G47.33 Obstructive slee p apnea (adult) (pediatric) Vlad Alaniz MD, [facility], [facility] 11/15/2020 G47.10 Hypersomnia, unspecified Shanell Alaniz MD, [facility], [facility] 11/15/2020 G47.61 Periodic limb movement disor janee Vlad Alaniz MD, [facility], [facility] 11/15/2020 R53.83 Other fatigue Vlad Alaniz MD, [facility], [facility] 11/15/2020 I10 Essential (primary) hyperten corinne Vlad Alaniz MD, [facility], [facility] 11/15/2020 I50.22 Chronic systolic (congestive) heart failure Vlad Alaniz MD, [facility], [facility] Sly Nix, D.P.M. 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, left ankle Sly Nix DP 05/04/2021 M77.32 Calcaneal spur, left foot [...] diabetic polyneuropathy Thomas Silva MD 12/14/2020 Z79.4 care home (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 of i josue Silva MD 11/17/2020 L84 Corns and callosities Brannon Silva MD 11/17/2020 L85.2 Keratosis puncta ta (palmaris et plantaris) Sly Nix, DPM 11/17/2020 E11.42 Type 2 diabetes mellitus with diabetic polyneuropathy Thomas Silva MD 11/17/2020 L84 Corns and callosities Sly Nix, DPM 11/17/2020 Z79.4 care home (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 of i josue Silva MD 11/17/2020 M79.671 Pain in right foot Thomas reed MD 11/17/2020 R23.4 Changes in skin texture Jamar Nix, DP 11/17/2020 M17.0 Bilateral primar y osteoarthritis of knee Thomas Silva MD 11/17/2020 M79.671 Pain in right foot Sly Nix, DP 11/17/2020 E11.42 Type 2 diabetes mellitus with diabetic polyneuropathy Sly Nix, DP 11/17/2020 L85.3 Xerosis cutis Sly HernandezMiguelina mcguire, DPM 11/17/2020 M20.42 Other hammer toe (s) (acquired), left foot Sly Nix, DPM 11/17/2020 M20.41 Other hammer toe (s) (acquired), right foot Sly De Santiago Boyd, [facility] 11/17/2020 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 Sly HernandezMiguelina Boyd, [facility] 11/15/2020 G47.33 Obstructive slee p apnea (adult) (pediatric) Vlad Alaniz MD, [facility], [facility] 11/15/2020 G47.10 Hypersomnia, unspecified Shanell Alaniz MD, [facility], [facility] 11/15/2020 G47.61 Periodic limb movement disor janee Vlad Alaniz MD, [facility], [facility] 11/15/2020 R53.83 Other fatigue Vlad Alaniz MD, [facility], [facility] 11/15/2020 I10 Essential (primary) hyperten corinne Vlad Alaniz MD, [facility], [facility] 11/15/2020 I50.22 Chronic systolic (congestive) heart failure Vlad Alaniz MD, [facility], [facility] Sly Nix, D.P.M. Work Phone: 1(361) 217-406209-16-2021 Evaluation note* Date Code Description Provider 03/30/2021 R23.4 Changes in skin texture Jamar Nix, DP 03/30/2021 M79.671 Pain in right foot Sly Nix, [facility] 03/30/2021 M79.672 Pain in left foot Sly HernandezMiguelina Boyd, [facility] 03/30/2021 B35.1 Tinea unguium Sly HernandezMiguelina mcguire, [facility] 03/30/2021 E11.42 Type 2 diabetes mellitus with diabetic polyneuropathy Sly Nix, DP 03/30/2021 M20.42 Other hammer toe (s) (acquired), left foot Sly Nix, DP 03/30/2021 M20.41 Other hammer toe (s) (acquired), right foot Sly Nix, DPM 03/30/2021 I87.2 Venous insuffici ency (chronic) (peripheral) Sly Nix, DP 03/30/2021 Z68.35 Body mass index [BMI] 35.0-35.9, adult Sly Nix, DP 01/25/2021 G47.33 Obstructive slee p apnea (adult) (pediatric) Mateo Oseguera PA-C 01/25/2021 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 Mateo Oseguera PA-C 01/25/2021 I10 Essential (primary) hyperten corinne Mateo Oseguera PA-C 01/12/2021 L30.9 Dermatitis, unspecified Jamar fan DavidMiguelina Nix, [facility] 01/12/2021 B35.1 Tinea unguium Sly Newton s, DP 01/12/[address], DP 01/12/2021 M79.671 Pain in right foot Sly Nix, DP 01/12/2021 M79.672 Pain in left foot Sly Nix, DP 01/12/2021 E11.42 Type 2 diabetes mellitus with diabetic polyneuropathy Sly Nix, DP 01/12/2021 M20.42 Other hammer toe (s) (acquired), left foot Sly Nix, DP 01/12/2021 M20.41 Other hammer toe (s) (acquired), right foot Sly Nix, DP 01/12/2021 R23.4 Changes in skin texture Jamar Nix, DP 12/14/2020 M17.0 Bilateral primar y osteoarthritis of knee Thomas Silva MD 12/14/2020 E11.42 Type 2 diabetes mellitus with diabetic polyneuropathy Thomas Silva MD 12/14/2020 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 Thomas Kumler, MD 11/17/2020 L84 Corns and callosities Brannon Silva MD 11/17/2020 L85.2 Keratosis puncta ta (palmaris et plantaris) Sly Nix, DPM 11/17/2020 E11.42 Type 2 diabetes mellitus with diabetic polyneuropathy Thomas Silva MD 11/17/2020 L84 Corns and callosities Sly Nix, DPM 11/17/2020 Z79.4 care home (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 of i josue Silva MD [...] right foot Sly Nix DPM 11/17/2020 Z79.4 care home (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 of i CAOI BlissM 11/15/2020 G47.33 Obstructive slee p apnea (adult) (pediatric) Vlad Alaniz MD, [facility], [facility] 11/15/2020 G47.10 Hypersomnia, unspecified Shanell Alaniz MD, [facility], [facility] 11/15/2020 G47.61 Periodic limb movement disor janee Vlad Alaniz MD, [facility], [facility] 11/15/2020 R53.83 Other fatigue Vlad [facility] MD, [facility] 11/15/2020 I10 Essential (primary) hyperten corinne Vlad Alaniz MD, [facility], [facility] 11/15/2020 I50.22 Chronic systolic (congestive) heart failure Vlad [facility]iz MD, [facility] 11/01/2020 R23.4 Changes in skin texture Jamar Nix, DPM 11/01/2020 L84 Corns and callosities Sly Nix, DPM 11/01/2020 M79.671 Pain in right foot Sly Nix, DPM 11/01/2020 E11.42 Type 2 diabetes mellitus with diabetic polyneuropathy Sly De Santiago Boyd, DPM 11/01/2020 M20.42 Other hammer toe (s) (acquired), left foot Sly Nix, DPM 11/01/2020 M20.41 Other hammer toe (s) (acquired), right foot Sly Nix, DPM 11/01/2020 Z79.4 care home (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 of i nsulin Sly DavidMiguelina Nix, DPM 10/27/2020 M17.0 Bilateral primar y [...] Sly Nix, DPM 10/13/2020 B35.1 Tinea unguium lSy Velazquezi s, DPM 10/13/2020 E11.42 Type 2 diabetes mellitus with diabetic polyneuropathy Sly HernandezMiguelina Nix, DPM 10/13/2020 M20.41 Other hammer toe (s) (acquired), right foot Sly De Santiago Boyd, [facility] 10/13/2020 M20.42 Other hammer toe (s) (acquired), left foot Sly Nix, DPM 10/13/2020 Z79.4 care home (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 of i nsulin Sly Nix, Naomi Correa.P.M. Work Phone: [phone]) [phone] Evaluation note* Date Code Description Provider 03/30/2021 Z68.35 Body mass index [BMI] 35.0-35.9, adult Sly DavidMiguelina Nix, [facility] 01/25/2021 G47.33 Obstructive slee p apnea (adult) (pediatric) Mateo Oseguera PA-C 01/25/2021 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 Mateo Oseguera PA-C 01/25/2021 I10 Essential (primary) hyperten corinne Mateo Oseguera PA-C 01/12/2021 L30.9 Dermatitis, unspecified Jamar Nix, [facility] 01/12/2021 B35.1 Tinea unguium Sly Newton s, DP 01/12/[address], DP 01/12/2021 M79.671 Pain in right foot Sly Nix, DP 01/12/2021 M79.672 Pain in left foot Sly Nix, CA[facility] 01/12/2021 E11.42 Type 2 diabetes mellitus with diabetic polyneuropathy Sly Nix, CAIO 01/12/2021 M20.42 Other hammer toe (s) (acquired), left foot Sly Nix, DP 01/12/2021 M20.41 Other hammer toe (s) (acquired), right foot Sly Nix, CAIO 01/12/2021 R23.4 Changes in skin texture Jamar Nix, CA[facility] 12/14/2020 M17.0 Bilateral primar y osteoarthritis of knee Thomas Silva MD 12/14/2020 E11.42 Type 2 diabetes mellitus with diabetic polyneuropathy Thomas Silva MD 12/14/2020 Z79.4 care home (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 of i nsulin Thomas Silva MD 11/17/2020 L84 Corns and callosities Brannon Silva MD 11/17/2020 L85.2 Keratosis puncta ta (palmaris et plantaris) Sly Nix DPM 11/17/2020 E11.42 Type 2 diabetes mellitus with diabetic polyneuropathy Thomas Silva MD 11/17/2020 L84 Corns and callosities Sly Nix, DPM 11/17/2020 Z79.4 care home (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 of i nsmalcolm Silva MD [...] right foot Sly Nix, DPM 11/17/2020 Z79.4 care home (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 of i nsulin Sly Nix, DPM 11/15/2020 G47.33 Obstructive slee p apnea (adult) (pediatric) Vlad Alaniz MD, [facility], [facility] 11/15/2020 G47.10 Hypersomnia, unspecified Shanell Alaniz MD, [facility], [facility] 11/15/2020 G47.61 Periodic limb movement disor janee Vlad Alaniz MD, [facility], [facility] 11/15/2020 R53.83 Other fatigue Vlad Alaniz MD, [facility], [facility] 11/15/2020 I10 Essential (primary) hyperten corinne Vlad Alaniz MD, [facility], [facility] 11/15/2020 I50.22 Chronic systolic (congestive) heart failure Vlad Alaniz MD, [facility], [facility] 11/01/2020 R23.4 Changes in skin texture [...] right foot Sly Nix, DPM 11/01/2020 Z79.4 care home (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 of i nsmalcolm Heart DavidMiguelina Nix, DPM 10/27/2020 M17.0 Bilateral primar y osteoarthritis of knee Thomas Silva MD 10/27/2020 E11.42 Type 2 diabetes mellitus with diabetic polyneuropathy Thomas Silva MD 10/27/2020 S91.301A Unspecified open wound, right foot, initial encounter Thomas Silva MD 10/13/2020 R23.4 Changes in skin texture Jamar meng De Santiago Boyd, DPM 10/13/2020 L84 Corns and callosities Sly Nix, DPM 10/13/2020 M79.671 Pain in right foot Sly Nix, DPM 10/13/2020 M79.672 Pain in left foot Sly Nix, DPM 10/13/2020 B35.1 Tinea unguium Sly Newton s, DPM 10/13/2020 E11.42 Type 2 diabetes mellitus with diabetic polyneuropathy Sly Nix, DPM 10/13/2020 M20.41 Other hammer toe (s) (acquired), right foot Sly Nix DPM 10/13/2020 M20.42 Other hammer toe (s) (acquired), left foot Sly Nix, DPM 10/13/2020 Z79.4 care home (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 of i josue Nix, JACEY Nix, Naomi.P.M. Work Phone: 1(174) [phone] Reason for referral (narrative)* Refer to Reason for Referral Status Appt [place]go [place], [facility] 12/26/2020- I see whe re surgery was cancelled but authorization did come through which would be valid from 12/18/2020 through 03/18/2021 for one DOS. Auth number [id number]. Just an FYI in case patient would be cleared for surgery within that date frame. mj Scheduled 12/27/[address] [place], [place] [id number] [phone] Sly Nix D.P.M. Work Phone: 1(351) [phone] History of Past illness Narrative* Problem Noted [...] dx'd in 1999 Endocrinology -- Dr. Washington, [facility] [place] Unspecified disorder of joint 11/23/2016 Overview: degenerative joint disease Bilateral shoulder pain --- right > left documented as of this encounter (statuses as of 01/22/2023) [facility] History of Past illness Narrative* Problem Noted [...] dx'd in 1999 Endocrinology -- Dr. Washington, [facility] [place] Unspecified disorder of joint 11/23/2016 Overview: degenerative joint disease Bilateral shoulder pain --- right > left documented as of this encounter (statuses as of 01/24/2023) [facility] History of Past illness Narrative* Problem Noted [...] dx'd in 1999 Endocrinology -- Dr. Washington [facility] [place] Unspecified disorder of joint 11/23/2016 Overview: degenerative joint disease Bilateral shoulder pain --- right > left documented as of this encounter (statuses as of 01/25/2023) [facility] History of Past illness Narrative* Problem Noted [...] dx'd in 1999 Endocrinology -- Dr. Washington, [facility] [place] Unspecified disorder of joint 11/23/2016 Overview: degenerative joint disease Bilateral shoulder pain --- right > left documented as of this encounter (statuses as of 01/30/2023) [facility] History of Past illness Narrative* Problem Noted [...] dx'd in 1999 Endocrinology -- Dr. Washington, [facility] [place] Unspecified disorder of joint 11/23/2016 Overview: degenerative joint disease Bilateral shoulder pain --- right > left documented as of this encounter (statuses as of 02/12/2023) [facility] History of Past illness Narrative* Problem Noted [...] dx'd in 1999 Endocrinology -- Dr. Washington, [facility] [place] Unspecified disorder of joint 11/23/2016 Overview: degenerative joint disease Bilateral shoulder pain --- right > left documented as of this encounter (statuses as of 03/02/2023) [facility] History of Past illness Narrative* Problem Noted [...] dx'd in 1999 Endocrinology -- Dr. Washington, [facility] [place] Unspecified disorder of joint 11/23/2016 Overview: degenerative joint disease Bilateral shoulder pain --- right > left documented as of this encounter (statuses as of 03/06/2023) [facility] History of Past illness Narrative* Problem Noted [...] dx'd in 1999 Endocrinology -- Dr. Washington, [facility] [place] Unspecified disorder of joint 11/23/2016 Overview: degenerative joint disease Bilateral shoulder pain --- right > left documented as of this encounter (statuses as of 03/15/2023) [facility] History of Past illness Narrative* Problem Noted [...] dx'd in 1999 Endocrinology -- Dr. Washington, [facility] [place] Unspecified disorder of joint 11/23/2016 Overview: degenerative joint disease Bilateral shoulder pain --- right > left documented as of this encounter (statuses as of 03/16/2023) [facility] History of Past illness Narrative* Problem Noted [...] dx'd in 1999 Endocrinology -- Dr. Washington, [facility] [place] Unspecified disorder of joint 11/23/2016 Overview: degenerative joint disease Bilateral shoulder pain --- right > left documented as of this encounter (statuses as of 03/19/2023) [facility] History of Past illness Narrative* Problem Noted [...] dx'd in 1999 Endocrinology -- Dr. Washington, [facility] [place] Unspecified disorder of joint 11/23/2016 Overview: degenerative joint disease Bilateral shoulder pain --- right > left documented as of this encounter (statuses as of 03/25/2023) [facility] History of Past illness Narrative* Problem Noted [...] dx'd in 1999 Endocrinology -- Dr. Washington, [facility] [place] Unspecified disorder of joint 11/23/2016 Overview: degenerative joint disease Bilateral shoulder pain --- right > left documented as of this encounter (statuses as of 03/26/2023) [facility] History of Past illness Narrative* Problem Noted [...] dx'd in 1999 Endocrinology -- Dr. Washington, [facility] [place] Unspecified disorder of joint 11/23/2016 Overview: degenerative joint disease Bilateral shoulder pain --- right > left documented as of this encounter (statuses as of 03/30/2023) [facility] History of Past illness Narrative* Problem Noted [...] of this encounter (statuses as of 04/04/2023) [facility] History of Past illness Narrative* Problem Noted [...] dx'd in 1999 Endocrinology -- [place] Unspecified disorder of joint 11/23/2016 Overview: degenerative joint disease Bilateral shoulder pain --- right > left documented as of this encounter (statuses as of 04/04/2023) [facility] History of Past illness Narrative* Problem Noted [...] of this encounter (statuses as of 04/05/2023) [facility] of Past illness Narrative* Problem Noted [...] of this encounter (statuses as of 04/12/2023) [facility] of Past illness Narrative* Problem Noted [...] of this encounter (statuses as of 04/20/2023) [facility] of Past illness Narrative* Problem Noted [...] of this encounter (statuses as of 05/01/2023) [facility] of Past illness Narrative* Problem Noted [...] of this encounter (statuses as of 05/02/2023) [facility] of Past illness Narrative* Problem Noted [...] of this encounter (statuses as of 05/07/2023) [facility] Information to Report [facility] [employer] [facility] Discharge summary No Information to Report [facility] Evaluation note No Information to Report [facility] [employer] [facility] Evaluation note* Diagnosis Subclinical hyperthyroidism Thyrotoxicosis without mention of goiter or other cause, without mention of thyrotoxic crisis or storm documented in this encounter [facility]* Diagnosis Nonischemic cardiomyopathy (HCC)- Primary Other primary cardiomyopathies [facility] Nonischemic cardiomyopathy (HCC) Other primary cardiomyopathies Dyslipidemia Other and unspecified hyperlipidemia Benign essential HTN [facility] Date Code Description Provider 01/25/2022 G47.33 Obstructive slee p apnea (adult) (pediatric) Mateo Oseguera PA-C 01/25/2022 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 Mateo Oseguera PA-C 01/25/2022 I10 Essential (primary) hyperten corinne Mateo Oseguera PA-C 01/25/2022 Z68.36 Body mass index [BMI] 36.0-36.9, adult Mateo Oseguera PA-C 01/11/2022 M76.61 Achilles tendinitis, right l eg Sly DavidMiguelina Nix, DPM 01/11/2022 M24.871 Other specific j oint derangements of right ankle, not elsewhere classified Sly DavidMiguelina Nix DPM 01/11/2022 M65.871 Other synovitis and tenosynovitis, right ankle and foot Sly DavidMiguelina Nix, DPM 01/11/2022 M25.571 Pain in right an kle and joints of right foot Sly DavidMiguelina Nix, DPM 01/11/2022 I87.2 Venous insuffici ency (chronic) (peripheral) Sly DavidMiguelina Nix, DPM 01/11/2022 R60.0 Localized edema Sly [place], DPM 01/11/2022 E11.42 Type 2 diabetes mellitus with diabetic polyneuropathy Sly DavidMiguelina Nix, DPM 12/12/2021 M24.871 Other specific j oint derangements of right ankle, not elsewhere classified Sly DavidCAIO TorresM 12/12/2021 M76.61 Achilles tendinitis, right l eg Sly DavidMiguelina Nix, DPM 12/12/2021 M65.871 Other synovitis and tenosynovitis, right ankle and foot Sly DavidMiguelina Nix DPM 12/12/2021 M25.571 Pain in right an kle and joints of right foot Sly DavidMiguelina Nix DPM 12/12/2021 I87.2 Venous insuffici ency (chronic) (peripheral) Sly DavidMiguelina Nix, DPM 12/12/2021 R60.0 Localized edema Sly [place], DPM 12/12/2021 B35.1 Tinea unguium Sly mcguire, DPM 12/12/2021 E11.42 Type 2 diabetes mellitus with diabetic polyneuropathy Sly Nix, DPM 11/23/2021 G47.33 Obstructive slee p apnea (adult) (pediatric) Vlad Alaniz MD, [facility], [facility] 11/23/2021 G47.10 Hypersomnia, unspecified Shanell Alaniz MD, [facility], [facility] 11/23/2021 R53.81 Other malaise Vlad Alaniz MD, [facility], [facility] 11/23/2021 R53.83 Other fatigue Vlad Alaniz MD, [facility], [facility] 11/23/2021 I10 Essential (primary) hyperten corinne Vlad Alaniz MD, [facility], [facility] 11/13/2021 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, right ankle and foot Sly Nix, [facility] 11/13/2021 M24.871 Other specific j oint derangements of right ankle, not elsewhere classified Sly Nix [facility] 11/13/2021 M65.871 Other synovitis and tenosynovitis, right ankle and foot Sly Nix [facility] 11/13/2021 M25.571 Pain in right an kle and joints of right foot Sly Nix [facility] 11/13/2021 R60.0 Localized edema Sly [place], [facility] 11/13/2021 E11.42 Type 2 diabetes mellitus with diabetic polyneuropathy Sly Nix [facility] 11/13/2021 Z68.34 Body mass index [BMI] 34.0-34.9, adult lSy Nix [facility] 10/09/2021 G89.18 Other acute postprocedural p ain Sly Nix [facility] 10/09/2021 Z09 Encounter for fo llow-up examination after completed treatment for conditions other than malignant neoplasm Sly Nix [facility] 10/09/2021 M76.61 Achilles tendinitis, right l [...] index [BMI] 34.0-34.9, adult Vlad Alaniz MD, [facility], [facility] 09/18/2021 Z91.19 Patient's noncom pliance with [...] DPM 09/05/2021 G89.18 Other acute postprocedural p vahen Sly HernandezMiguelina Nix, DPM 09/05/2021 Z09 Encounter [...] mellitus with diabetic polyneuropathy Sly Nix, DP 08/25/2021 Z91.19 Patient's noncom pliance with other medical treatment and regimen Sly Nix, DP 08/25/2021 Z09 Encounter for fo llow-up examination [...] diabetes mellitus with diabetic polyneuropathy Sly Nix, Gisselle CorreaPGarry. Work Phone: Evaluation note* Diagnosis Subclinical hyperthyroidism Thyrotoxicosis without mention of goiter or other cause, without mention of thyrotoxic crisis or storm documented in this encounter [facility]* Diagnosis Nonischemic cardiomyopathy (HCC)- Primary Other primary cardiomyopathies Benign essential HTN HFrEF (heart failure with reduced ejection fraction) (HCC) Heart failure with preserved ejection fraction, unspecified HF chronicity (HCC) documented in this encounter [facility] noteNo assessment information availableSoTerre Ha[facility] [employer] Phone: [facility]* Diagnosis Dyslipidemia Other and unspecified hyperlipidemia documented in this encounter [facility] note* Diagnosis Nonischemic cardiomyopathy (HCC) Other primary cardiomyopathies documented in this encounter [facility] note* Diagnosis Encounter to establish care with new doctor- Primary Other reasons for seeking consultation Type 2 diabetes mellitus with diabetic neuropathy, with long-term current use of insulin ([facility]) Screening for HIV (human immunodeficiency virus) Special [...] esophagitis Esophageal reflux documented in this encounter [facility] note* Diagnosis NICM (nonischemic cardiomyopathy) (HCC)- Primary Other primary cardiomyopathies Cardiac resynchronization therapy defibrillator (RESISTOR INSPECTOR-D) in place Primary hypertension Unspecified essential hypertension documented in this encounter [facility] note* Diagnosis Type 2 diabetes mellitus with diabetic neuropathy, with long-term current use of insulin ([facility])- Primary Essential hypertension, benign Coronary artery disease involving [place] heart without angina pectoris, unspecified vessel or lesion type Restless leg syndrome Restless legs syndrome (RLS) documented in this encounter [facility] note* Diagnosis Restless leg syndrome Restless legs syndrome (RLS) documented in this encounter [facility] note* Diagnosis Type 2 diabetes mellitus with diabetic neuropathy, with long-term current use of insulin ([facility])- Primary Encounter for immunization Need for other specified prophylactic vaccination against single bacterial disease Medication management Encounter for long-term (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 of other medications documented in this encounter [facility] note* Diagnosis Type 2 diabetes mellitus with diabetic neuropathy, with long-term current use of insulin ([facility]) documented in this encounter [facility] note* Diagnosis Uncontrolled diabetes mellitus with hyperglycemia, without long-term current use of insulin (HCC)- Primary documented in this [facility] Diagnosis Type 2 diabetes mellitus with diabetic neuropathy, with long-term current use of insulin (HCC) documented [facility] Diagnosis Type 2 diabetes mellitus with diabetic neuropathy, with long-term current use of insulin (HCC)- Primary Depression, unspecified depression type [facility]* Diagnosis Non-ischemic cardiomyopathy (HCC) [I42.8]- Primary Other primary cardiomyopathies [facility]* Diagnosis Type 2 diabetes mellitus with diabetic neuropathy, with long-term current use of insulin ([facility]) [facility]* Diagnosis Type 2 diabetes mellitus with diabetic neuropathy, with long-term current use of insulin ([facility])- Primary [facility]* Diagnosis Type 2 diabetes mellitus with diabetic neuropathy, with long-term current use of insulin ([facility])- Primary Hyperglycemia Other abnormal glucose [facility]* Diagnosis Encounter for immunization- Primary Need for other specified prophylactic vaccination against single bacterial disease Type 2 diabetes mellitus with diabetic neuropathy, with long-term current use of insulin ([facility]) [facility]* Diagnosis Type 2 diabetes mellitus with diabetic neuropathy, with long-term current use of insulin ([facility])- Primary Anxiety with depression Chronic constipation Unspecified constipation Intertrigo Other specified erythematous condition Type 2 diabetes mellitus with complication, without long-term current use of insulin ([facility]) [facility]* Diagnosis Type 2 diabetes mellitus with diabetic neuropathy, with long-term current use of insulin ([facility])- Primary Preventative health care Routine general medical examination at a health care [facility] Food insecurity Diabetes education, encounter for Type II or unspecified type diabetes mellitus without mention of complication, not stated as uncontrolled [facility]* Diagnosis Cardiomyopathy, unspecified type (HCC)- Primary [facility]* Diagnosis GERD without esophagitis Esophageal reflux [facility]* Diagnosis Type 2 diabetes mellitus with diabetic neuropathy, with long-term current use of insulin ([facility])- Primary Uses self-applied continuous glucose monitoring device Preventative health care Routine general medical examination at a health care facility Diabetes education, encounter for Type II or unspecified type diabetes mellitus without mention of complication, not stated as uncontrolled Screening for colon cancer Special screening for malignant neoplasms, colon [facility] Diagnosis Uses self-applied continuous glucose monitoring device- Primary Type 2 diabetes mellitus with diabetic neuropathy, with long-term current use of insulin (HCC) Preventative health care Routine general medical examination at a [facility] care facility Diabetes education, encounter for Type II or unspecified type diabetes mellitus without mention of complication, not stated as uncontrolled [facility] Diagnosis GERD without esophagitis Esophageal reflux Type 2 diabetes mellitus with diabetic neuropathy, with long-term current use of insulin (HCC) [facility] Diagnosis Type 2 diabetes mellitus with diabetic neuropathy, with long-term current use of insulin (HCC) [facility]* Diagnosis Type 2 diabetes mellitus with diabetic neuropathy, with long-term current use of insulin (HCC)- Primary [facility]* Diagnosis Type 2 diabetes mellitus with diabetic neuropathy, with long-term current use of insulin (HCC)- Primary Dyspepsia Dyspepsia and other specified disorders of function of stomach Nausea Nausea alone [facility]* Diagnosis Type 2 diabetes mellitus [...] Other specified counseling [facility]* Diagnosis Restless leg syndrome Restless legs syndrome (RLS) Coronary artery disease involving [place] heart without angina pectoris, unspecified vessel or lesion type [facility]* Diagnosis Type 2 diabetes mellitus with diabetic neuropathy, with long-term current use of insulin (HCC) [facility]* Diagnosis Type 2 diabetes mellitus with diabetic neuropathy, with long-term current use of insulin (HCC) [facility] Diagnosis Type 2 diabetes mellitus with [...] Complex care coordination documented [facility]* Diagnosis Medication management- Primary Encounter for long-term (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 of other medications documented in this encounter [facility] note* Diagnosis Medication monitoring encounter- Primary Encounter for therapeutic drug monitoring Depression, unspecified depression type Type 2 diabetes mellitus with diabetic neuropathy, with long-term current use of insulin (HCC) Coronary artery disease involving [place] heart without angina pectoris, unspecified vessel or lesion type documented [facility]* Diagnosis Medication management- Primary Encounter for long-term (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 of other medications Coronary artery disease involving [place] heart without angina pectoris, unspecified vessel or lesion type Type 2 diabetes mellitus with diabetic neuropathy, with long-term current use of insulin (HCC) documented in this encounter [facility] note* Diagnosis Nonischemic cardiomyopathy- Primary Other primary cardiomyopathies CHF (congestive heart failure) Congestive heart failure, unspecified Cardiomyopathy Other primary cardiomyopathies SOB (shortness of breath) Shortness of breath Left ventricular systolic dysfunction Heart disease, unspecified Pulmonary hypertension Other chronic pulmonary heart diseases Dilated cardiomyopathy Other primary cardiomyopathies Chest pain, unspecified Bundle branch block, left Other left bundle branch block Edema Hypertension Unspecified essential hypertension Nonischemic cardiomyopathy Other primary cardiomyopathies S/P implantation of automatic cardioverter/defibrillator (AICD) Automatic implantable cardiac defibrillator in situ CHF (congestive heart failure) Congestive heart failure, unspecified DM type 2 (diabetes mellitus, type 2) Type II or unspecified type diabetes mellitus without mention of complication, not stated as uncontrolled MRSA bacteremia- Primary Bacteremia Congestive heart failure, unspecified HF chronicity, unspecified heart failure type Bacteremia Infection Unspecified infectious and parasitic diseases MRSA bacteremia Bacteremia Infection Unspecified infectious and parasitic diseases [facility] No Information to Report [facility] [employer] [facility] History and physical note Author [facility] Note Date/Time December 20, 2024 8:50p m [facility] Medical Records Department [address] [place] [address] H&P Exam - Hospitalist 12/20/242026 MR#: [id number] Acct: [id number] Name: MICHELLE JULES Rep #:[id number] 3 : 1965 59 From: Nicole Dobson MD PCP: Dr. Lisseth Peñaloza MD Status:REG ER Location: ED HPI - General General Date of Admission: 12/20/24 Date of Service: 12/20/24 Chief Complaint: Back pain, N/V, lower abdominal discomfort HPI Narrative The patient is a 59 y/o F w/ PMHx: Anxiety and depression, CKD stage II per GFR trending although has vacillated, ischemic cardiomyopathy/HFrEF s/p AICD, HTN, HLD, GERD, Diabetes mellitus type II with chronic neuropathy, Allergic rhinitis,Gout, Obesity, RLS who presents to the [facility] ED on 12/20/2024with history of recent MRSA bacteremia suspected per ID from a recent fall previous to her presentation with a scrape to the left elbow with unremarkable workup otherwise with KANDY with no evidence of any vegetations and eventual repeat blood cultures negative with a noncontrast lumbar CT with degenerative changes only given back discomfort and unfortunately pacer ICD not compatible with MRI with current PICC line in place receiving IV vancomycin with planned duration x 6 weeks with stop date 01/02/2025 with weekly labs and ID follow-up initially feeling improved since her discharge from the hospital 11/26/2024 unfortunately with onset of recurrent fevers, nausea and emesis as well as lumbar back pain in addition to lower bilateral quadrant abdominal discomfort worse on the left than the right with a fever of up to 102.1 at home today although she does report that she has had some difficulty giving herself her home vancomycin twice daily and is concerned that she may potentially not have been getting the infusion correctly because the tubing has been kinked noting that she may have even only gotten half a dose twice the day prior and not on day of presentation presenting 1 slightly since her discharge for PICC line malfunction with Cathflo infusion. Workup in the ED included T98.4, heart rate 133, BP 130/86, respiratory rate 19, 96% on room air with most recent repeat vitals T99.5, heart rate 128, BP 115/71, respiratory rate 19, 94% on room air, CBC with WBC 10.1, he 1 14.2, platelet 147 with left shift and lymphopenia, unremarkable coags aside PT 23.8, CMP with chloride 96, glucose 347, BUN/creatinine 12/0.99, GFR 66, alk phos 207 otherwise hepatic profile not marked appearing, lactic acid 2.3, CRP 25.40, urinalysis with no obvious evidence of UTI, random Vanco level less than 4, chest x-ray with no acute cardiopulmonary findings. In the ED patient ministered Toradol 50 mg IV x 1, Zofran 4 mg IV x 1, 2 L normal saline and vancomycin 1750 mg IV x 1. [facility] Medical History MRSA bacteremia Nonischemic cardiomyopathy Diabetes mellitus Bacteremia Low back pain MRSA (methicillin resistant staph aureus) culture positive [...] mg PO BID PRN const ipation 05/06/24 12/20/24 History (Colace) CareFine Pen Needle 30 gauge x #120 ea 05/29/24 Unknow n Rx 11/27 (pen needle, diabetic) insulin syringe-needle U-100 0.5 #90 ea 05/29/24 Unkno wn Rx mL 31 gauge x 5/16 (BD Insulin Syringe Ultra-Fine) sacubitril 24 mg-valsartan 26 mg 1 tab PO BID #60 tabs 06/03/24 12/19/24 Rx tablet (Entresto) blood sugar diagnostic (OneTouch #100 ea 10/15/24 Unkn own Rx Verio test strips) 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 meter (OneTouch #1 ea 10/15/24 Unknown R x Verio Reflect Meter) 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 sensor (WorkecStyle #2 ea 10/15/24 Unknown Rx Lance 3 Plus Sensor device) 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,facility designer,cont #1 ea 10/15/24 Unknown Rx (FreeStyle Lance 3 [place]) insulin lispro 100 unit/mL 30 unit subcut TID dm 10/1912/19/24 History subcutaneous pen insulin glargine 100 unit/mL (3 40 unit (0.4 mL) subcu t BID #30 mL 10/21/24 12/19/24 18:06 Rx mL) subcutaneous pen (Lantus Solostar U-100 Insulin) atorvastatin 10 mg tablet (Lipitor) 10 mg PO DAILY cho lesterol #90 tabs 10/22/24 12/20/24 Rx carvedilol 25 mg tablet 25 mg PO Q12H #180 tabs 10/1312/19/24 Rx cetirizine 10 mg capsule 10 mg PO DAILY #90 caps 10/1312/19/24 Rx cholecalciferol (vitamin D3) 1,250 1,250 mcg PO QWEEK #12 caps 10/22/24 12/19/24 Rx mcg (50,000 unit) capsule duloxetine 60 mg capsule,delayed 60 mg PO BID #180 cap s 10/22/24 12/19/24 Rx release magnesium oxide 400 mg (241.3 mg 400 mg PO BID #180 ta bs 10/22/24 12/19/24 Rx magnesium) tablet spironolactone 25 mg tablet 25 mg PO DAILY #30 tabs 12/19/24 Rx pantoprazole 40 mg tablet,delayed 40 mg PO BID #180 ta bs 11/19/24 12/19/24 Rx release (Protonix) ropinirole 0.5 mg tablet 0.5 mg PO QHS #90 tabs 11/1912/19/24 Rx vancomycin 1.75 gram intravenous 1.75 g IV Q12H 39 day s 11/25/24 12/19/24 Rx solution gabapentin 300 mg capsule 300 mg PO DAILY #30 caps 12/19/24 21:06 Rx dulaglutide 3 mg/0.5 mL 3 mg (0.5 mL) subcut QWEEK # 2 mL 12/10/24 12/16/24 Rx subcutaneous pen injector (Trulicity) Allergy/AdvReac Type Severity Reaction Status Date / Time simvastatin Allergy Severe Myalgia Verified 12/20/24 17:46 Latex, Natural Rubber Allergy Unknown Rash Verified 12/20/24 17:46 metformin Allergy Other Verified 12/20/24 17:46 adhesive tape AdvReac Severe Rash Verified 12/20/24 17:46 Family History Father Heart disease Myocardial infarction [...] safe at home: Yes ROS ROS Narrative Admission Review of Systems: CONSTITUTIONAL: No weight loss, + fever, chills, weakness or fatigue. HEENT: Eyes: No visual loss, blurred vision, double vision or yellow sclerae. Ears, Nose, Throat: No hearing loss, sneezing, congestion, runny nose or sore throat. SKIN: No rash or itching, lesions, wounds. CARDIOVASCULAR: No chest pain, chest pressure or chest discomfort, palpitations,edema, orthopnea, syncopal events. RESPIRATORY: No shortness of breath, cough or sputum, wheezing, hemoptysis. GASTROINTESTINAL: + Anorexia, nausea, vomiting, lower abdominal discomfort bilaterally, left greater than right. No diarrhea, melena, BRBPR. GENITOURINARY: No dysuria, frequency, urgency or retention. NEUROLOGICAL: No headache, dizziness, syncope, paralysis, ataxia, numbness or tingling in the extremities, focal weakness, change in bowel or bladder control,seizure. MUSCULOSKELETAL: +muscle, back pain, joint pain or stiffness. HEMATOLOGIC: No anemia. + Easy bleeding/bruising. LYMPHATICS: No enlarged nodes. No history of splenectomy. PSYCHIATRIC: + History of anxiety and depression. ENDOCRINOLOGIC: No reports of sweating, cold or heat intolerance. No polyuria orpolydipsia. ALLERGIES: + History of allergic rhinitis. Vital Signs Vital Signs Vital Signs: 12/20/24 17:42 12/20/24 17:46 12/20/24 17:59 Temperature 98.4 F 98.2 F Temperature Source Oral Oral Pulse Rate 133 H 127 H Respiratory Rate 19 H 16 Respiratory Effort Normal Non-Labored Respiratory Pattern Normal Blood Pressure 134/86 H 164/90 H Blood Pressure Mean 102 114 Pulse Ox 96 95 Oxygen Delivery Method Room Air Room Air 12/20/24 18:07 12/20/24 19:00 12/20/24 19:50 Temperature 99.7 F H 99.5 F H Temperature Source Oral Oral Pulse Rate 123 H 128 H Respiratory Rate 22 H 19 H Respiratory Effort Respiratory Pattern Blood Pressure 118/70 115/71 Blood Pressure Mean 86 85 Pulse Ox 94 94 Oxygen Delivery Method Room Air Room Air Room Air Weight Weight: 255 lb 8.252 oz Body Mass Index (BMI) 37.7 Physical Exam Narrative Physical Examination: General: Awake, alert, oriented x 3 and cooperative, laying in the bed, fatigued, no acute distress. Skin: Mildly flushed color, normal turgor, no icterus, no cyanosis except occasional stage ecchymoses, abrasion, small petechiae to the lower extremities bilaterally. HEENT: AT/NC, EOMI, PERRLA, mildly dry MM, no carotid bruits, difficult to discern JVD given thickened neck. Lungs: Mildly diminished, better bases, mild increased respiratory rate but no distress, no rales, ronchi or wheezing. Heart: Tachycardic with regular rhythm; no gallop, rub audible. Abdomen: Soft, obese, mild discomfort to palpation of the bilateral lower quadrants left greater than right with no rebound or guarding, no suprapubic discomfort, no flank discomfort, no obvious distention or tympany, distant BS, difficult to discern HSM given habitus. Extremities: No cyanosis, clubbing, or edema, see skin. Neurological: Patient awake, alert, oriented as noted, cognitive function intact; pupils equally reactive to light and accommodation, cranial nerves grossnormal, moving all 4 extremities, no focal deficits, strength moderately to severely globally decreased secondary to acute presentation. Psychiatric: Affect appears flat, fatigued, ill-appearing, no acute evidence of depressive or anxiety feelings but does have underlying history. Results Lab / Micro Data 12/20/24 18:40 12/20/24 18:40 Labs: Laboratory Results - last 24 hr 12/20/24 18:40: WBC 10.1, RBC 4.76, Hgb 14.2, Hct 42.0, MCV 88.2, MCH 29.8, MCHC33.8, RDW Std Deviation 46.1 H, RDW Coeff of [place] 14.5, Plt Count 147 L, MPV 9.6,Immature Gran % (Auto) 0.500, Neut % (Auto) 85.9 H, Lymph % (Auto) 7.4 L, [place] %(Auto) 5.4, Eos % (Auto) 0.3, Baso % (Auto) 0.5, Absolute Neuts (auto) 8.7 H, Absolute Lymphs (auto) 0.75 L, Nucleated RBC % 0, PT 13.9, INR 1.1, APTT 23.8 L, Sodium 133, Potassium 4.5, Chloride 96 L, Carbon Dioxide 24.3, Anion Gap 12, BUN12, Creatinine 0.99, Estim Creat Clear Calc 84.17, Est GFR (MDRD) Non-Af 66, BUN/Creatinine Ratio 11.9, Glucose 347 H, Lactic Acid 2.3 H*, Calcium 9.8, TotalBilirubin 0.60, AST 22, ALT 21, Alkaline Phosphatase 207 H, C-React Prot Ext Range 25.40 H, Total Protein 8.3, Albumin 4.3, Globulin 4.0, Albumin/Globulin Ratio 1.1, Random Vancomycin < 4.0 12/20/24 19:47: Urine Color Yellow, Urine Clarity Sl. Cloudy, Urine pH 6.5, Ur Specific [place] 1.015, Urine Protein 15 H, Urine Glucose (UA) 1000 H, Urine Ketones Negative, Urine Occult Blood 10 H, Urine Nitrite Negative, Urine Bilirubin Negative, Urine Urobilinogen Normal, Ur Leukocyte Esterase Negative, Urine RBC 0-5 SEEN, Urine WBC 0-5 SEEN, Ur Squamous Epith Cells 0-5 SEEN, Urine Bacteria 0 SEEN, Urine Mucus 0 SEEN Imaging Radiology Impression Chest X-Ray 12/20/24 19:05 IMPRESSION: No Acute Findings. Reading Location: [facility] Assessment & Plan Assessment/Plan (1) MRSA bacteremia: PLAN: Plan The patient is a 59 y/o F w/ PMHx: Anxiety and depression, CKD stage II per GFR trending although has vacillated, ischemic cardiomyopathy/HFrEF s/p AICD, HTN, HLD, GERD, Diabetes mellitus type II with chronic neuropathy, Allergic rhinitis,Gout, Obesity, RLS who presents to the [facility] ED on 12/20/2024with history of recent MRSA bacteremia suspected per ID from a recent fall previous to her presentation with a scrape to the left elbow with unremarkable workup otherwise including negative KANDY with onset of recurrent fevers, nausea and emesis as well as lumbar back pain with a fever of up to 102.1 at home todayalthough she does report that she has had some difficulty giving herself her home vancomycin twice daily and is concerned that she may potentially not have been getting the infusion correctly because the tubing has been kinked noting that she may have even only gotten half a dose twice the day prior and not on day of presentation presenting 1 slightly since her discharge for PICC line malfunction with Cathflo infusion. #1. Recent MRSA bacteremia suspected secondary to recent left elbow injury withrecurrent PICC malfunction with suspected underdosing of vancomycin with recurrent fevers in addition to intractable nausea and emesis as well as persistent lumbar back pain with mild lactic acidosis but no overt endorgan damage: Will admit to PCU, maintain on IV vancomycin, will also obtain ESR, willrequest involvement of infectious disease, will assure that at least 1 blood culture has been obtained from a new PICC line, may need to consider alternate access but ideally would like to make sure that there is no recurrent bacteremia, given persistent lumbar back pain with no obvious evidence of UTI wewill request to be cautious CT abdomen and pelvis and CT lumbar spine to assure no source evident given the time lapse since initial evaluation, will allow clear liquids with judicious fluids given ischemic, apathy history with reduced EF status post AICD, maintain on IV PPI, antiemetic and pain regimen as needed, PT/OT/case management consulted for discharge planning. #2. Thrombocytopenia, new onset during previous admission: Admission platelet 147, during recent admission patient did have evidence of new onset thrombocytopenia, 11/25/2024 at last lab prior to discharge platelets 142, 12/15/2024 evaluation platelets 142, will continue to trend, likely related with acute presentation, reactive component. #3. HFrEF/ischemic cardiomyopathy: Status post AICD, not compatible for MRI unfortunately, has complicated current presentation is unable to perform MRI forlumbar back pain with no obvious acute findings on CT, will judiciously hydrate given underlying history, continue aspirin, statin, Coreg, Entresto, spironolactone as BP allows. #4. Diabetes mellitus type II with hyperglycemia with chronic neuropathy: Hold oral home regimen, continue home insulin regimen, initiate on clears given GI symptoms with advance diet as tolerated once improving, maintain in the interim on every 6 hours accu checks w/ ISS, continue home gabapentin regimen. #5. Hypertension: Continue home regimen including spironolactone, Entresto, Coreg with hold parameters as needed, PRN hydralazine. #6. Hyperlipidemia: Will continue patient on statin therapy. #7. Anxiety and depression: Will continue patient on duloxetine regimen. #8. Chronic Kidney Disease Stage II per GFR trending although has vacillated: Admission BUN/Cr 12/0.99, GFR 66, baseline renal function primarily 0.6-0.9, repeat BMP in AM. #9. Obesity: Weight loss and lifestyle changes encouraged. #10. GERD: Will maintain on IV PPI given acute presentation with GI symptoms, transition back to oral regimen once appropriate. #11. Restless leg syndrome: Will continue patient on Requip regimen. #12. Allergic rhinitis: Will continue patient on cetirizine regimen. #13. DVT prophylaxis: Lovenox. Charges/Coding Visit Charges Inpatient E&M: 98228 Init Hosp L3 12/20/242049 <Electronically signed by Nicole Dobson MD> Cosigner Signature (if applicable): CC: Dr. Lisseth Peñaloza MD; Dr. Nicole Dobson MD~ Signed [facility] Work Phone: Hospital Discharge instructions Additional Instructions [facility] Discharge instructions Additional Instructions [...] skin followed by clean gauze and a wrap.[facility] Work Phone: Procedure note No Information to Report [facility] [employer] [facility] Interventional Spine Progress note No Information to Report [facility] Reason for referral (narrative)* Outpatient Procedure (Routine) - Pending Review Specialty Diagnoses / Procedures Referred By Fred richey Referred To Contact [facility] Diagnoses Screening for colon cancer Procedures COLONOSCOPY SCREENING COLONOSCOPY FLX DX W/COLLJ SPEC WHEN Homar Lora MD [address] [place] [address] [facility] [address] [place] [id number] Referral ID Status Reason Start Date Expiration Date Visits Requested Visits Authorized [id number] Pending Review Auto-Generat ed Referral 10/30/2023 10/29/2024 1 1 T [facility] for referral (narrative)* Diagnostic Procedure Only (Routine) - New Request Specialty Diagnoses / Procedures Referred By Fred richey Referred To Contact [facility] IMAGING Diagnoses Encounter for screening mammogram for breast cancer Procedures SALEEM SCREENING W LANEY SCREENING DIGITAL BREAST TOMOSYNTHESIS BI SCREENING MAMMOGRAPHY BI 2-VIEW BREAST INC Homar Suarez MD [address] [place] [address] [facility] [address] [place] [phone] Referral ID Status Reason Start Date Expiration Date Visits Requested Visits Authorized [id number] New Request Auto-Generat ed Referral 01/29/2024 02/27/2025 1 1 T [facility] for visit Narrative* Auth/Cert Specialty Diagnoses / Procedures Referred By Contac t Referred To Contact Diagnoses MRSA Pacemaker Problem Wallace Lugo MD [address] [place] [address] Phone: tel: fax: [facility] [address] [place] [address] Referral ID Status Reason Start Date Expiration Date Visits Re quested Visits Authorized [id number] 1 1 [facility] Summary Purpose Family History No Family History [...] FoundDocuments on File Type Date Recorded Patient Weaver Tire Cord Expl anation Advance Directives and Living Will Power of Lining Folder Documents on File Type Date Recorded Patient Weaver Tire Cord Expl anation Advance Directives and Living Will Documents on File Type Date Recorded Patient Weaver Tire Cord Expl anation Advance Directives and Living Will Documents on File Type Date Recorded Patient Weaver Tire Cord Expl anation Advance Directives and Living Will Power of Lining Folder DNR Documentation Advance Directive Response Recorded Date/ Time Advance Directives No August 10, 2021 1:29pm Advance Directive Response Recorded Date/ Time Advance Directives No April 19, 2013 2:19am Living Will No October 06, 2023 1:26pm Power of Lining Folder No October 05 1:26pm Advance Directive Response Recorded Date/ Time Living Will No January 11, 2024 11:57pm Do you have a Healthcare Power of Lining Folder? No January 11, 2024 11:57pm Do you have a Healthcare Power of Lining Folder? No November 07, 2024 7:34pm Do you have a Healthcare Power of Lining Folder? No November 20, 2024 2:18pm Advance Directives No April 19, 2013 2:19am Advance Directive Response Recorded Date/ Time Living Will No January 11, 2024 11:57pm Do you have a Healthcare Power of Lining Folder? No January 11, 2024 11:57pm Do you have a Healthcare Power of Lining Folder? No November 07, 2024 7:34pm Do you have a Healthcare Power of Lining Folder? No November 20, 2024 7:04pm Advance Directives No April 19, 2013 2:19am Advance Directive Response Recorded Date/ Time Living Will No January 11, 2024 11:57pm Do you have a Healthcare Power of Lining Folder? No January 11, 2024 11:57pm Do you have a Healthcare Power of Lining Folder? No November 07, 2024 7:34pm Do you have a Healthcare Power of Lining Folder? No November 20, 2024 7:04pm Do you have a Healthcare Power of Lining Folder? No November 28, 2024 12:28am Advance Directives No April 19, 2013 2:19am Advance Directive Response Recorded Date/ Time Living Will No January 11, 2024 11:57pm Do you have a Healthcare Power of Lining Folder? No January 11, 2024 11:57pm Do you have a Healthcare Power of Lining Folder? No November 07, 2024 7:34pm Do you have a Healthcare Power of Lining Folder? No November 20, 2024 7:04pm Do you have a Healthcare Power of Lining Folder? No November 28, 2024 12:28am Do you have a Healthcare Power of Lining Folder? No December 20, 2024 5:56pm Advance Directives No April 19, 2013 2:19am Advance Directive Response Recorded Date/ Time Living Will No January 11, 2024 11:57pm Do you have a Healthcare Power of Lining Folder? No January 11, 2024 11:57pm Do you have a Healthcare Power of Lining Folder? No November 07, 2024 7:34pm Do you have a Healthcare Power of Lining Folder? No November 20, 2024 7:04pm Do you have a Healthcare Power of Lining Folder? No November 28, 2024 12:28am Do you have a Healthcare Power of Lining Folder? No December 20, 2024 10:07pm Advance Directives No April 19, 2013 2:19am Date Activated Date Inactivated Comments 12/23/2024 11:39 PM Date Activated Date Inactivated Comments 09/03/2013 2:00 PM 09/04/2013 12:39 PM Instructions * Patient Instructions* Anali Wilson LPN [...] Get enough calcium and vitamin D. The [place] of Medicine recommends adults younger than age [...] Where can you learn more? Go to https://www.Macheen.net/patientEd Enter S618 in the search box to learn more about Preventing Osteoporosis: Care Instructions. Current as of: February 17, 2019 Content Version: 12.3 Spry. Care instructions adapted under license by your healthcare professional. If you have questions about a medical condition or this instruction, always ask your healthcare professional. Spry disclaims any warranty or liability for your [...] green vegetables such as broccoli and spinach. Romeo vegetables such as carrots and sweet potatoes. [...] Where can you learn more? Go to https://www.Macheen.net/patientEd. Enter Z059 in the search box to learn more about Food as Fuel: Care Instructions. Current as of: May 21, 2018 Content Version: 12.2 7140-4628 Spry. Care instructions adapted under license by your healthcare professional. If you have questions about a medical condition or this instruction, always ask your healthcare professional. Spry disclaims any warranty or liability for your [...] tennis or racquetball. Climb stairs. Even some assembler semiconductor can be aerobic just do them at [...] Where can you learn more? Go to https://www.Macheen.net/patientEd. Enter W332 in the search box to learn more about Learning About Physical Activity. Current as of: November 16, 2018 Content Version: 12.2 8698-3847 Spry. Care instructions adapted under license by your healthcare professional. If you have questions about a medical condition or this instruction, always ask your healthcare professional. Spry disclaims any warranty or liability for your [...] a time each month to do a [id number] breast self-exam. Other women like a less [...] Where can you learn more? Go to https://www.Macheen.net/patientEd. Enter P148 in the search box to learn more about Breast Self-Exam: Care Instructions. Current as of: July 02, 2018 Content Version: 12.2 3798-3319 Spry. Care instructions adapted under license by your healthcare professional. If you have questions about a medical condition or this instruction, always ask your healthcare professional. Spry disclaims any warranty or liability for your [...] Where can you learn more? Go to https://www.Macheen.net/patientEd. Enter S176 in the search box to learn more about Body Mass Index: Care Instructions. Current as of: October 09, 2018 Content Version: 12.2 Spry. Care instructions adapted under license by your healthcare professional. If you have questions about a medical condition or this instruction, always ask your healthcare professional. Spry disclaims any warranty or liability for your [...] green vegetables such as broccoli and spinach. Romeo vegetables such as carrots and sweet potatoes. [...] Where can you learn more? Go to https://www.Macheen.net/patientEd Enter Z059 in the search box to learn more about Food as Fuel: Care Instructions. Current as of: March 04, 2019 Content Version: 12.3 4894-0423 Spry. Care instructions adapted under license by your healthcare professional. If you have questions about a medical condition or this instruction, always ask your healthcare professional. Spry disclaims any warranty or liability for your use of this information. documented in this encounter* Patient Instructions* Nilam Garrett RN - 08/21/2019 10:47 AM EST 1. [facility] will call you to schedule your ECHOCARDIOGRAM. If you have not received a phone call in approximately 7-10 days to schedule your procedure, please call [facility] Central Scheduling at [phone] or our offce at [phone]. Transthoracic Echocardiogram: About This Test What is [...] the side of your chest to help pickling grader the sound waves. The transducer will be [...] Log into your personal health record on https://Qitio.Purfresh and enter E130 in the Education box to learn more about Transthoracic Echocardiogram: About This Test. Current as of: October 21, 2018 Content Version: 12.3 9522-6446 Spry. Care instructions adapted under license by your healthcare professional. If you have questions about a medical condition or this instruction, always ask your healthcare professional. Spry disclaims any warranty or liability for your [...] the results and further medication direction. 2. [facility] will call you regarding your overnight pulse oximetry. If you have not received a phone call in approximately 3-5 days, please call them at at [phone] or our offce at [phone]. documented in this encounter* Patient Instructions* Marlene [...] be scheduled. Please call our office @ [phone] at that time to schedule your appointment. [...] be scheduled. Please call our office @ [phone] at that time to schedule your appointment. [...] complication, without long-term current use of insulin ([facility]) Class 1 obesity without serious comorbidity with [...] a day. Vitamin D, Ergocalciferol, 1.25 MG (91209 UT) CAPS Take 1 capsule by mouth [...] or concerns at this time. 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 Patient's medications and allergies were reviewed and [...] documented in this encounter* Ha Rivas APRN FNP-C - 08/18/2019 8:15 AM EST Subjective: Michelle [...] complication, without long-term current use of insulin ([facility]) 04/22/2019 Current Outpatient Medications on File Prior [...] a day. Vitamin D, Ergocalciferol, 1.25 MG (62997 UT) CAPS Take 1 capsule by mouth [...] surgery, and will need to see her machinery mover before surgery. Body mass index is 33.79 [...] Rodriguez MD - 08/21/2019 11:47 AM EST [facility] Subjective Michelle [...] She was having her device followed bythe machinery mover in [place]. She is going to switch her follow-up care to our office as well as monitoring her device. She has not received any therapy from her defibrillator. She stated she has never smoked. She was checked for sleep apnea and does not have it. 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 Her last interrogation remotely was 06/30/2019 through [facility] General device clinic. No abnormalities were [...] any further cardiac work-up.Will get an echo. 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 Her last interrogation remotely was 06/30/2019 through [facility] [place] General device clinic. No abnormalities were seen. [...] 3 months (around 11/19/2019). Milka Rodriguez MD [facility] [address] [place], [place] [id number] ([phone] * Janet Jacobo MA - 08/21/2019 10:22 [...] General Cardiology Clinic Consult Heart & Vascular [facility] 12/15/2019 Patient: Michelle Jules Date [...] Systems: Review of systems performed by the certified ophthalmic medical technician, personally reviewed and viewable in the current [...] LDLCALC, LDLDIRECT, TRIG, HDL Abbey Oliveira CNP [facility], Heart and Vascular [address] [place], [place] [id number] [email or web address] documented in this encounter* Janet Jacobo MA [...] of swelling in fingers yesterday * Abbey Oliveira, CAROL - 12/29/2019 10:45 AM EDT General Cardiology Clinic Consult Heart & Vascular [facility] 12/29/2019 Patient: Michelle Jules Date [...] her labs done as soon as possible. Instructional Specialist can take her tomorrow at 9 AM. [...] Systems: Review of systems performed by the certified ophthalmic medical technician, personally reviewed and viewable in the current [...] LDLCALC, LDLDIRECT, TRIG, HDL Abbey Oliveira CNP [facility], Heart and Vascular [address] [place] [address] [email or web address] documented in this encounter* Marlene Jacob RN - 12/29/2019 3:13 PM EDT Order for Overnight Pulse Ox faxed to [facility] with insurance card, recent office note, snapshot/med list, and demographic sheet. Fax confirmation receipt received. documented in this encounter* Abbey Oliveira CNP - 04/05/2020 3:30 PM EDT General Cardiology Clinic Consult Heart & Vascular [facility] 04/05/2020 Patient: Michelle Jules Date [...] Systems: Review of systems performed by the certified ophthalmic medical technician, personally reviewed and viewable in the current [...] LDLCALC, LDLDIRECT, TRIG, HDL Abbey Oliveira CNP [facility], Heart and Vascular [address] [place], [place] [phone] [email or web address] * Janet Jacobo MA - 04/05/2020 2:29 [...] Rodriguez MD - 10/07/2020 2:46 PM EDT [facility] Subjective Michelle [...] no changes. ICD (implantable cardioverter-defibrillator) in place [email or web address]. Enrolled in our device clinic. No events on last interrogation. Other Tests Ordered: No orders of the defined types were placed in this encounter. Follow-Up Ordered: No follow-ups on file. Milka Rodriguez MD [facility] [address] [place] [address] * Krupa Hercules MA - 10/07/2020 2:29 [...] Echocardiogram complete w Milka Francisco MD [address] [place] [address] [facility]) - Outpatient [facility] [address] [place] [address] Status Reason Specialty Diagnoses / Procedures Referred By Contact Referred To Contact Authorized Diagnoses PAXTON (obstructive sleep apnea) Procedures Nocturnal pulse oximetry Abbey Oliveira CNP [address] [place] [address] Specialty Diagnoses / Procedures Referred By Contac t Referred To Contact Cardiology Diagnoses Nonischemic cardiomyopathy (HCC) Procedures ECG 12 lead Abbey Oliveira CNP [address] [place] [address] Referral ID Status Reason Start Date Expiration Date V isits Requested Visits Authorized [id number] Authorized 10/13/2021 10/13/2022 1 1 Description No Information Available Specialty Diagnoses / Procedures Referred By Contac t Referred To Contact Gastroenterology Diagnoses Colon cancer screening Family history of colon cancer Procedures CONSULT TO GASTROENTEROLOGY OFFICE/OUTPATIENT NEW HIGH MDM 60-74 MINUTES Evna Barnett MD [address] [address] Referral ID Status Reason Start Date Expiration Date Visits Requested Visits Authorized [id number] Outside PCP PCP Requested Referral 01/22/2023 01/22/2024 1 1 Specialty Diagnoses / Procedures Referred By Contac t Referred To Contact [facility] Diagnoses Encounter for screening mammogram for breast cancer Procedures S[place]EM SCREENING SCREENING MAMMOGRAPHY BI 2-VIEW BREAST INC CAD Evan Barnett MD [address] [address] [facility] [address] [place] [address] Referral ID Status Reason Start Date Expiration Date Visits Requested Visits Authorized [id number] Outside PCP Auto-Generat ed Referral 01/22/2023 02/21/2024 1 1 Specialty Diagnoses / Procedures Referred By Contac t Referred To Contact Ophthalmology Diagnoses Screening for diabetic retinopathy Procedures CONSULT TO OPHTHALMOLOGY OFFICE/OUTPATIENT [facility] MDM 60-74 MINUTES Evan Barnett MD [address] [address] Referral ID Status Reason Start Date Expiration Date Visits Requested Visits Authorized [id number] Outside PCP PCP Requested Referral 01/22/2023 01/22/2024 1 1 Specialty Diagnoses / Procedures Referred By Contac t Referred To Contact Diagnoses NICM (nonischemic cardiomyopathy) (HCC) Procedures CONSULT TO DEVICE CLINIC (AG) Ronny Wheeler MD [address] [place] [phone] Referral ID Status Reason Start Date Expiration Date V isits Requested Visits Authorized [id number] Ref Not Required 01/29/2023 03/30/2023 1 1 Specialty Diagnoses / Procedures Referred By Contac t Referred To Contact [facility] Diagnoses NICM (nonischemic cardiomyopathy) (HCC) Procedures ECHO ECHO TTHRC R-T 2D W/WOM-MODE COMPL SPEC&COLR D Ronny Wheeler MD [address] [place] [phone] [facility] [place] [address] [place] [address] Referral ID Status Reason Start Date Expiration Date Visits Requested Visits Authorized [id number] Pending Review Auto-Generat ed Referral 01/29/2023 01/29/2024 1 1 Specialty Diagnoses / Procedures Referred By Fred t Referred To Contact Diagnoses Anxiety with depression Procedures CONSULT [facility] Johanna Thornton DO [address] [place] [address] Referral ID Status Reason Start Date Expiration Date Visits Requested Visits Authorized [id number] Ref Not Required PCP Requested Referral 08/30/2023 11/28/2023 1 1 Chief Complaint and Reason for Visit Chief Complaint E11.9,Z79.4,I10,R60. 0,E55.9 R74.8 R74.8 RT HEEL L arm laceration Chief Complaint E11.9,Z79.4,I10,R60. 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-D November 09, 2024 10: 07am SEPSIS November [...] 20, 2024 4:25pm Chief Complaint Admit Date SAND BUFFER EST CARE-PPW GIVEN August 05, 2024 2:11pm 1 M FU September 07, 2024 11:11am Diabetes October 15, 2024 10:0 4am 6 wk fu October 19, 2024 10:1 1am 6 M FU November 04, 2024 10: 04am defibrillator noise November 07, 2024 7:1 3pm Pacer Check Remote November 09, 2024 9:0 0am NEW ENROLLEE RESISTOR 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-D November 09, 2024 10: 07am SEPSIS OF [...] 20, 2024 6:37pm Chief Complaint Admit Date SAND BUFFER EST CARE-PPW GIVEN August 05, 2024 2:11pm 1 M FU September 07, 2024 11:11am Diabetes October 15, 2024 10:0 4am 6 wk fu October 19, 2024 10:1 1am 6 M FU November 04, 2024 10: 04am defibrillator noise November 07, 2024 7:1 3pm Pacer Check Remote November 09, 2024 9:0 0am NEW ENROLLEE RESISTOR INSPECTOR-D November 09, 2024 10: 07am SEPSIS OF [...] 2024 9:27p m Chief Complaint Admit Date SAND BUFFER EST CARE-PPW GIVEN August 05, 2024 2:11pm 1 M FU September 07, 2024 11:11am Diabetes October 15, 2024 10:0 4am 6 wk fu October 19, 2024 10:1 1am 6 M FU November 04, 2024 10: 04am defibrillator noise November 07, 2024 7:1 3pm Pacer Check Remote November 09, 2024 9:0 0am NEW ENROLLEE RESISTOR INSPECTOR-D November 09, 2024 10: 07am SEPSIS OF [...] November 09, 2024 9:0 0am NEW ENROLLEE RESISTOR INSPECTOR-D November 09, 2024 10: 07am SEPSIS OF [...] November 09, 2024 9:0 0am NEW ENROLLEE RESISTOR INSPECTOR-D November 09, 2024 10: 07am SEPSIS OF [...] November 09, 2024 9:0 0am NEW ENROLLEE RESISTOR INSPECTOR-D November 09, 2024 10: 07am SEPSIS OF [...] December 09, 2024 11:01 am 8 WK December 10, 2024 10:21 am Reason for [...] diabetic neuropathy, unspecified December 10, 2024 10:21am Chief Complaint Admit Date 1 M FU September 07, 2024 11:11am Diabetes October 15, 2024 10:0 4am 6 wk fu October 19, 2024 10:1 1am 6 M FU November 04, 2024 10: 04am defibrillator noise November 07, 2024 7:1 3pm Pacer Check Remote November 09, 2024 9:0 0am NEW ENROLLEE RESISTOR INSPECTOR-D November 09, 2024 10: 07am SEPSIS OF [...] WK FU December 10, 2024 10:21 am FEVER December 20, 2024 8:27p m RECENT MRSA BACTEREMIA, PICC MALFX, F, N /V December 20, 2024 8:28pm Reason for Visit Admit Date Anxiety September [...] diabetic neuropathy, unspecified December 10, 2024 10:21am MRSA bacteremia December 20, 2024 8:28p m Chief Complaint Admit Date 1 M FU September 07, 2024 11:11am Diabetes October 15, 2024 10:0 4am 6 wk fu October 19, 2024 10:1 1am 6 M FU November 04, 2024 10: 04am defibrillator noise November 07, 2024 7:1 3pm Pacer Check Remote November 09, 2024 9:0 0am NEW ENROLLEE RESISTOR INSPECTOR-D November 09, 2024 10: 07am SEPSIS OF [...] WK FU December 10, 2024 10:21 am FEVER December 20, 2024 8:27p m RECENT MRSA BACTEREMIA, PICC MALFX, F, N /V December 20, 2024 8:28pm RECENT MRSA BACTEREMIA, PICC MALFX, F, N /V December 21, 2024 7:31pm RECENT MRSA BACTEREMIA, PICC MALFX, F, N /V December 22, 2024 7:39pm Reason for Visit Admit Date Anxiety September [...] diabetic neuropathy, unspecified December 10, 2024 10:21am Hx of bacteremia December 20, 2024 8:28p m MRSA bacteremia December 20, 2024 8:28p m Chief Complaint Admit Date 1 M FU September 07, 2024 11:11am Diabetes October 15, 2024 10:0 4am 6 wk fu October 19, 2024 10:1 1am 6 M FU November 04, 2024 10: 04am defibrillator noise November 07, 2024 7:1 3pm Pacer Check Remote Alison 28th, 2025 9:0 0am NEW ENROLLEE RESISTOR INSPECTOR-D November 09, 2024 10: 07am SEPSIS OF [...] OF UNCLEAR ORIGIN November 26, 2024 12:19pm Pacer Check Remote November 27, 2024 4:25a m ANTIBIOTICS November 27, 2024 9:27p m activase to each lumen of PICC line December 01, 2024 12:02pm HOSP FU December 09, 2024 11:01 am 8 WK FU December 10, 2024 10:21 am FEVER December 20, 2024 8:27p m RECENT MRSA BACTEREMIA, PICC MALFX, F, N /V December 20, 2024 8:28pm RECENT MRSA BACTEREMIA, PICC MALFX, F, N /V December 21, 2024 7:31pm AM EKG December 22, 2024 4:41 am RECENT MRSA BACTEREMIA, PICC MALFX, F, N /V December 22, 2024 7:39pm RECENT MRSA BACTEREMIA, PICC MALFX, F, N /V December 28, 2024 8:18am Chief Complaint Admit Date Diabetes October 15, 2024 10:0 4am 6 wk fu October 19, 2024 10:1 1am 6 M FU November 04, 2024 10: 04am defibrillator noise November 07, 2024 7:1 3pm Pacer Check Remote November 09, 2024 9:0 0am NEW ENROLLEE RESISTOR INSPECTOR-D November 09, 2024 10: 07am SEPSIS OF UNCLEAR ORIGIN November 20, 2024 6 :37pm SEPSIS OF UNCLEAR ORIGIN November 21, 2024 7:15am SEPSIS OF UNCLEAR ORIGIN November 22, 2024 8:01am SEPSIS OF UNCLEAR ORIGIN November 22, 2024 12:36pm SEPSIS OF UNCLEAR ORIGIN May 12th, 2025 7:26am SEPSIS OF UNCLEAR ORIGIN November 23, 2024 7:46am SEPSIS OF UNCLEAR ORIGIN November 24, 2024 7:35am SEPSIS OF UNCLEAR ORIGIN November 24, 2024 7:36am SEPSIS OF UNCLEAR ORIGIN November 25, 2024 8:04am SEPSIS OF UNCLEAR ORIGIN November 26, 2024 12:19pm Pacer Check Remote November 27, 2024 4:25a m ANTIBIOTICS November 27, 2024 9:27p m activase to each lumen of PICC line December 01, 2024 12:02pm HOSP FU December 09, 2024 11:01 am 8 WK FU December 10, 2024 10:21 am FEVER December 20, 2024 8:27p m RECENT MRSA BACTEREMIA, PICC MALFX, F, N /V December 20, 2024 8:28pm RECENT MRSA BACTEREMIA, PICC MALFX, F, N /V December 21, 2024 7:31pm AM EKG December 22, 2024 4:41 am RECENT MRSA BACTEREMIA, PICC MALFX, F, N /V December 22, 2024 7:39pm RECENT MRSA BACTEREMIA, PICC MALFX, F, N /V December 28, 2024 8:18am DALBAVANCIN January 12, 2025 12:18 pm Reason for Visit Admit Date HTN (hypertension) October 15, 2024 10:0 4am [...] diabetic neuropathy, unspecified December 10, 2024 10:21am Hx of bacteremia December 20, 2024 8:28p m MRSA bacteremia December 20, 2024 8:28p m Chief Complaint Admit Date Diabetes October 15, 2024 10:0 4am 6 wk fu October 19, 2024 10:1 1am 6 M FU November 04, 2024 10: 04am defibrillator noise November 07, 2024 7:1 3pm Pacer Check Remote November 09, 2024 9:0 0am NEW ENROLLEE RESISTOR INSPECTOR-D November 09, 2024 10: 07am SEPSIS OF [...] OF UNCLEAR ORIGIN November 26, 2024 12:19pm Pacer Check Remote November 27, 2024 4:25a m ANTIBIOTICS November 27, 2024 9:27p m activase to each lumen of PICC line December 01, 2024 12:02pm HOSP FU December 09, 2024 11:01 am 8 WK FU December 10, 2024 10:21 am FEVER December 20, 2024 8:27p m RECENT MRSA BACTEREMIA, PICC MALFX, F, N /V December 20, 2024 8:28pm RECENT MRSA BACTEREMIA, PICC MALFX, F, N /V December 21, 2024 7:31pm AM EKG December 22, 2024 4:41 am RECENT MRSA BACTEREMIA, PICC MALFX, F, N /V December 22, 2024 7:39pm RECENT MRSA BACTEREMIA, PICC MALFX, F, N /V December 28, 2024 8:18am DALBAVANCIN January 12, 2025 12:18 pm DALBAVANCIN January 19, 2025 12:41 pm Chief Complaint Admit Date Diabetes October 15, 2024 10:0 4am 6 wk fu October 19, 2024 10:1 1am 6 M FU November 04, 2024 10: 04am defibrillator noise November 07, 2024 7:1 3pm Pacer Check Remote November 09, 2024 9:0 0am NEW ENROLLEE RESISTOR INSPECTOR-D November 09, 2024 10: 07am SEPSIS OF [...] OF UNCLEAR ORIGIN November 26, 2024 12:19pm Pacer Check Remote November 27, 2024 4:25a m ANTIBIOTICS November 27, 2024 9:27p m activase to each lumen of PICC line December 01, 2024 12:02pm HOSP FU December 09, 2024 11:01 am 8 WK FU December 10, 2024 10:21 am FEVER December 20, 2024 8:27p m RECENT MRSA BACTEREMIA, PICC MALFX, F, N /V December 20, 2024 8:28pm RECENT MRSA BACTEREMIA, PICC MALFX, F, N /V December 21, 2024 7:31pm AM EKG December 22, 2024 4:41 am RECENT MRSA BACTEREMIA, PICC MALFX, F, N /V December 22, 2024 7:39pm RECENT MRSA BACTEREMIA, PICC MALFX, F, N /V December 28, 2024 8:18am DALBAVANCIN January 12, 2025 12:18 pm DALBAVANCIN January 19, 2025 12:41 pm HOPSITAL FOLLOW UP - RECS REQUESTED February 03, 2025 10:49am Reason for Visit Admit Date HTN (hypertension) October 15, 2024 10:0 4am [...] diabetic neuropathy, unspecified December 10, 2024 10:21am Hx of bacteremia December 20, 2024 8:28p m MRSA bacteremia December 20, 2024 8:28p m Perla infection February 03, 2025 10:4 9am HTN (hypertension) February 03, 2025 10:4 9am Type 2 diabetes mellitus wit h diabetic neuropathy, unspecified February 03, 2025 10:49am Chief Complaint Admit Date Diabetes October 15, 2024 10:0 4am 6 wk fu October 19, 2024 10:1 1am 6 M FU November 04, 2024 10: 04am defibrillator noise November 07, 2024 7:1 3pm Pacer Check Remote November 09, 2024 9:0 0am NEW ENROLLEE RESISTOR INSPECTOR-D November 09, 2024 10: 07am SEPSIS OF [...] OF UNCLEAR ORIGIN November 26, 2024 12:19pm Pacer Check Remote November 27, 2024 4:25a m ANTIBIOTICS November 27, 2024 9:27p m activase to each lumen of PICC line December 01, 2024 12:02pm HOSP FU December 09, 2024 11:01 am 8 WK FU December 10, 2024 10:21 am FEVER December 20, 2024 8:27p m RECENT MRSA BACTEREMIA, PICC MALFX, F, N /V December 20, 2024 8:28pm RECENT MRSA BACTEREMIA, PICC MALFX, F, N /V December 21, 2024 7:31pm AM EKG December 22, 2024 4:41 am RECENT MRSA BACTEREMIA, PICC MALFX, F, N /V December 22, 2024 7:39pm RECENT MRSA BACTEREMIA, PICC MALFX, F, N /V December 28, 2024 8:18am DALBAVANCIN January 12, 2025 12:18 pm DALBAVANCIN January 19, 2025 12:41 pm HOPSITAL FOLLOW UP - RECS REQUESTED February 03, 2025 10:49am 3 M FU February 04, 2025 10:5 8am Reason for Visit Admit Date HTN (hypertension) October 15, 2024 10:0 4am [...] diabetic neuropathy, unspecified December 10, 2024 10:21am Hx of bacteremia December 20, 2024 8:28p m MRSA bacteremia December 20, 2024 8:28p m Perla infection February 03, 2025 10:4 9am Hx of bacteremia February 03, 2025 10:4 9am HTN (hypertension) February 03, 2025 10:4 9am Type 2 diabetes mellitus wit h diabetic neuropathy, unspecified February 03, 2025 10:49am Nonischemic dilated cardiomyopathy February 04, 2025 10:58am HTN (hypertension) February 04, 2025 10:5 8am History of placement of internal cardiac defibrillator February 04, 2025 10:58am Additional Source Comments INFORMATION SOURCE (unrecogn ized section and content) DATE CREATED AUTHOR 01/08/2018 [facility] DATE CREATED AUTHOR AUTHOR'S ORGANIZ ATION 06/23/2018 [facility] [place] DATE CREATED AUTHOR AUTHOR'S ORGANIZ ATION 03/06/2019 [facility] DATE CREATED AUTHOR AUTHOR'S ORGANIZ ATION 04/21/2022 [facility] DATE CREATED AUTHOR AUTHOR'S ORGANIZ ATION 05/08/2022 [facility] DATE CREATED AUTHOR AUTHOR'S ORGANIZ ATION 09/20/2022 [facility] DATE CREATED AUTHOR AUTHOR'S ORGANIZ ATION 09/20/2022 [facility] DATE CREATED AUTHOR AUTHOR'S ORGANIZ ATION 11/18/2022 [facility] DATE CREATED AUTHOR AUTHOR'S ORGANIZ ATION 12/15/2023 [facility] DATE CREATED AUTHOR AUTHOR'S ORGANIZ ATION 05/10/2024 [facility] DATE CREATED AUTHOR AUTHOR'S ORGANIZ ATION 02/09/2025 [facility] DATE CREATED AUTHOR AUTHOR'S ORGANIZ ATION 02/18/2025 [facility] Reason for Visit (unrecogniz ed section and content) Reason Comments Gynecologic Exam Reason Comments Medication Refill Reason Comments Results Reason Comments Surgical Clearance Reason Comments Establish Care cardiac clearance fo r knee scopt Status Reason Specialty Diagnoses / Procedures Referred By Contact Referred To Contact Closed Specialty Services Required/Patient 's Best Interest Cardiology Diagnoses Pre-operative cardiovascular examination Pacemaker David Silva MD [address] [place] [address] Milka Rodriguez MD [address] [place] [address] Reason Comments Other Reason Comments Follow-up 2wk f/u CHF Reason Comments Follow-up 2wk f/u heart failur e Reason Comments Follow-up 3mo f/u heart failur e Reason Onset Date Comments Medication Refill 07/29/2020 Reason Comments Follow-up pre op clearance Reason Comments Follow-up 1 yr f/u NON-ischemi c cardiomyopathy Reason Comments Follow-up 6 mht FU non-ischemi c cardiomyopathy/increased weight and edema per field case manager Polina Reason Comments Appointment Reason Comments New Patient Reason Comments REFERRAL To Gastroenterology Reason Comments CARD New Patient Consult SAND BUFFER TO RE ESTABL [place] A-FIB Reason Comments [...] 3 mL pen Reason Onset Date Comments 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 04/05/2023 Intake Reason Onset Date Comments 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 04/19/2023 Attempted PCC follow up Reason Comments No Show Diabetes follow up Reason Comments No Show Reason Comments Medication Problem Reason Comments Patient Update Reason Comments Results Reason Onset Date Comments 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 06/18/2023 PCC follow up Reason Comments Medication Authorization Carlos schaeffer n 100unit/ml Reason Comments Patient Question Reason Onset Date Comments 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 06/27/2023 Attempted PCC follow up Reason Comments Follow Up Diabetes Reason Onset Date Comments 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 09/06/2023 Attempted PCC follow up Reason Comments Medication Authorization Victoza Reason Comments Medication Authorization Freestyle Lance 2 sensor Reason Onset Date Comments 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 09/20/2023 PCC follow up Reason Comments Remote Pacemaker Follow Up Reason Onset Date Comments Refill Request 10/22/2023 Reason Comments Diabetes Reason Comments Initial Consult Reason Comments Forms Specialty- glucose m onitor Reason Onset Date Comments 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 11/08/2023 PCC follow up Reason Comments Colonoscopy Referral Reason Onset Date Comments Refill Request 11/15/2023 Reason Comments Forms Specialty medical- g lucose monitor Reason Onset Date Comments 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 11/29/2023 PCC follow up Reason Onset Date Comments 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 12/06/2023 Attempted PCC follow up Reason Onset Date Comments 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 12/26/2023 PCC follow up Reason Onset Date Comments 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 12/27/2023 Attempted outreach Reason Comments Diabetes GERD Reports more frequen t heartburn Reason Onset Date Comments 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 12/30/2023 PCC follow up, patient updated on Victoza change Reason Onset Date Comments 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 01/07/2024 Pcc follow up Specialty Diagnoses / Procedures Referred By Fred richey Referred To Contact FAMILY MEDICINE Diagnoses office visit Procedures OFFICE VISIT, EST PT., LEVEL 2 TC Self Famp Acc Cfm [address] [place] [address] Referral ID Status Reason Start Date Expiration Date Visits Requested Visits Authorized [id number] Outside PCP OON/Self Pay Override 12/24/2023 04/02/2025 1 1 Reason Comments Rx Refills Reason Onset Date Comments 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 02/13/2024 PCC follow up Reason Onset Date Comments Refill Request 02/12/2024 Reason Onset Date Comments Transition Of Care 02/26/2024 ER follow up, [place], 02/24/2024 Reason Comments Follow Up Insulin Usage Weight Problem Gain Reason Onset Date Comments 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 03/03/2024 Attempted to contact patient with PCP medication instruction Reason Onset Date Comments Refill Request 03/09/2024 Reason Onset Date Comments 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 Instructional Specialist can take her tomorrow at 9 AM. [...] Care Teams (unrecognized sec tion and content) Improvement Nurse Relationship Specialty Start Date End Date No, Physician [facility] PCP - General 08/07/19 Improvement Nurse Relationship Specialty Start Date End Date Ha Rivas APRN MOTOR ADJUSTER-C [address] [place] [address] PCP - General Family Medicine 05/11/19 Cam Quarles APRN CNP [address] [place] [address] Nurse Practitioner 08/28/21 Improvement Nurse Relationship Specialty Start Date End Date No, Physician [facility] PCP - General 08/07/19 Improvement Nurse Relationship Specialty Start Date End Date No, Physician [facility] PCP - General 08/07/19 Improvement Nurse Relationship Specialty Start Date End Date Ha Rivas APRN MOTOR ADJUSTER-C [address] [place] [address] PCP - General Family Medicine 05/11/19 Improvement Nurse Relationship Specialty Start Date End Date No, Physician [facility] PCP - General 08/07/19 Improvement Nurse Relationship Specialty Start Date End Date No, Physician [facility] PCP - General 08/07/19 Improvement Nurse Relationship Specialty Start Date End Date No, Physician [facility] PCP - General 08/07/19 Improvement Nurse Relationship Specialty Start Date End Date No, Physician [facility] PCP - General 08/07/19 Improvement Nurse Relationship Specialty Start Date End Date No, Physician [facility] PCP - General 08/07/19 Improvement Nurse Relationship Specialty Start Date End Date Homar Vasques MD [address] [address] [place], [place] [phone] PCP - General Family Medicine 01/22/23 MaldenAby, [facility] [address] [place] [address] Pharmacist Pharmacy 12/25/18 Williams Rubin MD [address] [place] [address] PCP Resident 01/22/23 Improvement Nurse Relationship Specialty Start Date End Date Homar Vasques MD [address] [place], [place] [id number] PCP - General Family Medicine 01/22/23 MaldenAby, [facility] [address] [place] [address] Pharmacist Pharmacy 12/25/18 Williams Rubin MD [address] [place] [address] PCP Resident 01/22/23 Improvement Nurse Relationship Specialty Start Date End Date Homar Vasques MD [address] [place] [address] PCP - General Family Medicine 01/22/23 MaldenAby, [facility] [address] [place] [address] Pharmacist Pharmacy 12/25/18 Williams Rubin MD [address] [place], [place] [phone] PCP Resident 01/22/23 Improvement Nurse Relationship Specialty Start Date End Date Homar Vasques MD [address] [place], [place] [phone] PCP - General Family Medicine 01/22/23 MaldenAby, [facility] [address] [place] [address] Pharmacist Pharmacy 12/25/18 Williams Rubin MD [address] [place] [address] PCP Resident 01/22/23 Improvement Nurse Relationship Specialty Start Date End Date Homar Vasques MD [address] [place] [address] PCP - General Family Medicine 01/22/23 MaldenAby, [facility] [address] [place] [address] Pharmacist Pharmacy 12/25/18 Williams Rubin MD [address] [place] [address] PCP Resident 01/22/23 Improvement Nurse Relationship Specialty Start Date End Date Homar Vasques MD [address] [place] [address] PCP - General Family Medicine 01/22/23 MaldenAby, [facility] [address] [place] [address] Pharmacist Pharmacy 12/25/18 Williams Rubin MD [address] [place] [address] PCP Resident 01/22/23 Improvement Nurse Relationship Specialty Start Date End Date Homar Vasques MD [address] [place] [address] PCP - General Family Medicine 01/22/23 Aby Lopez, [facility] [address] [place] [address] Pharmacist Pharmacy 12/25/18 Williams Rubin MD [address] [place] [address] PCP Resident 01/22/23 Improvement Nurse Relationship Specialty Start Date End Date Homar Vasques MD [address] [place] [address] PCP - General Family Medicine 01/22/23 Aby Lopez, [facility] [address] [place] [address] Pharmacist Pharmacy 12/25/18 Williams Rubin MD [address] [place] [address] PCP Resident 01/22/23 Improvement Nurse Relationship Specialty Start Date End Date Homar Vasques MD [address] [place] [address] PCP - General Family Medicine 01/22/23 Aby Lopez, [facility] [address] [place] [address] Pharmacist Pharmacy 12/25/18 Williams Rubin MD [address] [place] [address] PCP Resident 01/22/23 Improvement Nurse Relationship Specialty Start Date End Date Homar Vasques MD [address] [place] [address] PCP - General Family Medicine 01/22/23 Aby Lopez, [facility] [address] [place] [address] Pharmacist Pharmacy 12/25/18 Williams Rubin MD [address] [place] [address] PCP Resident 01/22/23 Improvement Nurse Relationship Specialty Start Date End Date Homar Vasques MD [address] [place] [address] PCP - General Family Medicine 01/22/23 MaldenAby, [facility] [address] [place] [address] Pharmacist Pharmacy 12/25/18 Williams Rubin MD [address] [place] [address] PCP Resident 01/22/23 Improvement Nurse Relationship Specialty Start Date End Date Homar Vasques MD [address] [place] [address] PCP - General Family Medicine 01/22/23 Aby Lopez, [facility] [address] [place] [address] Pharmacist Pharmacy 12/25/18 Williams Rubin MD [address] [place] [address] PCP Resident 01/22/23 Improvement Nurse Relationship Specialty Start Date End Date Homar Vasques MD [address] [place], [place] [id number] PCP - General Family Medicine 01/22/23 Aby Lopez, [facility] [address] [place] [address] Pharmacist Pharmacy 12/25/18 Williams Rubin MD [address] [place] [address] PCP Resident 01/22/23 Improvement Nurse Relationship Specialty Start Date End Date Homar Vasques MD [address] [place] [address] PCP - General Family Medicine 01/22/23 Aby Lopez, [facility] [address] [place] [address] Pharmacist Pharmacy 12/25/18 Williams Rubin MD [address] [place] [address] PCP Resident Family Medicine 01/22/23 Improvement Nurse Relationship Specialty Start Date End Date Homar Vasques MD [address] [place], [place] [id number] PCP - General Family Medicine 01/22/23 JohnAby chang, [facility] [address] [place] [address] Pharmacist Pharmacy 12/25/18 Williams Rubin MD [address] [place] [address] PCP Resident Family Medicine 01/22/23 Improvement Nurse Relationship Specialty Start Date End Date Homar Vasques MD [address] [place], [place] [phone] PCP - General Family Medicine 01/22/23 Aby Lopez, [facility] [address] [place] [address] Pharmacist Pharmacy 12/25/18 Williams Rubin MD [address] [place] [address] PCP Resident Family Medicine 01/22/23 Improvement Nurse Relationship Specialty Start Date End Date Homar Vasques MD [address] [place] [address] [place], [place] [phone] PCP - General Family Medicine 01/22/23 [facility] [address] [place] [address] Pharmacist Pharmacy 12/25/18 Williams Rubin MD [address] [place] [address] PCP Resident Family Medicine 01/22/23 Jeanie Murphy, visual managerPets And Pet 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 04/05/23 Improvement Nurse Relationship Specialty Start Date End Date Homar Vasques MD [address] [place] [address] PCP - General Family Medicine 01/22/23 Aby Lopez, [facility] [address] [place] [address] Pharmacist Pharmacy 12/25/18 Williams Rubin MD [address] [place] [address] PCP Resident Family Medicine 01/22/23 Jeanie Murphy visual managerPets And Pet 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 04/05/23 Improvement Nurse Relationship Specialty Start Date End Date Homar Vasques MD [address] [place] [address] PCP - General Family Medicine 01/22/23 Williams Rubin MD [address] [place] [address] PCP Resident Family Medicine 01/22/23 Jeanie Murphy, visual managerPets And Pet 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 04/05/23 Improvement Nurse Relationship Specialty Start Date End Date Homar Vasques MD [address] [place] [address] PCP - General Family Medicine 01/22/23 Williams Rubin MD [address] [place] [address] PCP Resident Family Medicine 01/22/23 Jeanie Murphy RN 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 04/05/23 Improvement Nurse Relationship Specialty Start Date End Date Homar Vasques MD [address] [place] [address] PCP - General Family Medicine 01/22/23 Williams Rubin MD [address] [place] [address] PCP Resident Family Medicine 01/22/23 Esola, Jeanie, visual managerPets And Pet 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 04/05/23 Improvement Nurse Relationship Specialty Start Date End Date Homar Vasques MD [address] [place], [place] [phone] PCP - General Family Medicine 01/22/23 Williams Rubin MD [address] [place] [address] PCP Resident Family Medicine 01/22/23 Jeanie Murphy RN 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 04/05/23 Improvement Nurse Relationship Specialty Start Date End Date Homar Vasques MD [address] [place], [place] [id number] PCP - General Family Medicine 01/22/23 Aby Lopez, [facility] [address] [place], [place] [address] Pharmacist Pharmacy 12/25/18 04/16/23 Williams Rubin MD [address] [place] [address] PCP Resident Family Medicine 01/22/23 Jeanie Murphy RN 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 04/05/23 Improvement Nurse Relationship Specialty Start Date End Date Homar Vasques MD [address] [place] [address] PCP - General Family Medicine 01/22/23 Williams Rubin MD [address] [place] [phone] PCP Resident Family Medicine 01/22/23 Jeanie Murphy RN 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 04/05/23 Improvement Nurse Relationship Specialty Start Date End Date Homar Vasques MD [address] [place], [place] [phone] PCP - General Family Medicine 01/22/23 Williams Rubin MD [address] [place] [address] PCP Resident Family Medicine 01/22/23 Jeanie Murphy, visual managerPets And Pet 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 04/05/23 Improvement Nurse Relationship Specialty Start Date End Date Homar Vasques MD [address] [place] [address] [place], [place] [phone] PCP - General Family Medicine 01/22/23 Williams Rubin MD [address] [place], [place] [phone] PCP Resident Family Medicine 01/22/23 Jeanie Murphy, visual managerPets And Pet 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 04/05/23 Improvement Nurse Relationship Specialty Start Date End Date Homar Vasques MD [address] [place], [place] [phone] PCP - General Family Medicine 01/22/23 Williams Rubin MD [address] [place] [address] PCP Resident Family Medicine 01/22/23 Jeanie Murphy, visual managerPets And Pet 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 04/05/23 Improvement Nurse Relationship Specialty Start Date End Date Homar Vasques MD [address] [place] [address] [place], [place] [phone] PCP - General Family Medicine 01/22/23 Williams Rubin MD [address] [place], [place] [phone] PCP Resident Family Medicine 01/22/23 Jeanie Murphy, visual managerPets And Pet 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 04/05/23 Improvement Nurse Relationship Specialty Start Date End Date No, Physician [facility] PCP - General 08/07/19 Improvement Nurse Relationship Specialty Start Date End Date Homar Vasques MD [address] [place] [address] [place], [place] [phone] PCP - General Family Medicine 01/22/23 Williams Rubin MD [address] [place], [place] [phone] PCP Resident Family Medicine 01/22/23 Jeanie Murphy, visual managerPets And Pet 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 04/05/23 Improvement Nurse Relationship Specialty Start Date End Date Homar Vasques MD [address] [place], [place] [phone] PCP - General Family Medicine 01/22/23 Williams Rubin MD [address] [place], [place] [phone] PCP Resident Family Medicine 01/22/23 Jeanie Murphy, visual managerPets And Pet 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 04/05/23 Team Status: Active Member Role Status Dates Dr. Thomas Hull MD Family Provider Active No Primary Care Physician Primary Care Provider Active Team Status: Inactive Member Role Status Dates Dr. Jose R Phillips MD Emergency Provider Active No Primary Care Physician Primary Care Provider Active Improvement Nurse Relationship Specialty Start Date End Date Homar Vasques MD [address] [place], [place] [phone] PCP - General Family Medicine 01/22/23 Williams Rubin MD [address] [place], [place] [phone] PCP Resident Family Medicine 01/22/23 Jeanie Murphy visual managerPets And Pet 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 04/05/23 Improvement Nurse Relationship Specialty Start Date End Date Homar Vasques MD [address] [place], [place] [phone] PCP - General Family Medicine 01/22/23 Williams Rubin MD [address] [address] [place], [place] [phone] PCP Resident Family Medicine 01/22/23 Jeanie Murphy RN 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 04/05/23 Improvement Nurse Relationship Specialty Start Date End Date Homar Vasques MD [address] [address] [place], [place] [phone] PCP - General Family Medicine 01/22/23 Williams Rubin MD [address] [place], [place] [phone] PCP Resident Family Medicine 01/22/23 Jeanie Murphy RN 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 04/05/23 Improvement Nurse Relationship Specialty Start Date End Date Homar Vasques MD [address] [address] [place], [place] [phone] PCP - General Family Medicine 01/22/23 Williams Rubin MD [address] [place] [address] PCP Resident Family Medicine 01/22/23 Jeaine Murphy visual managerPets And Pet 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 04/05/23 Improvement Nurse Relationship Specialty Start Date End Date Homar Vasques MD [address] [address] [place], [place] [phone] PCP - General Family Medicine 01/22/23 Williams Rubin MD [address] [address] [place], [place] [phone] PCP Resident Family Medicine 01/22/23 Jeanie Murphy, visual managerPets And Pet 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 04/05/23 Improvement Nurse Relationship Specialty Start Date End Date Homar Vasques MD [address] [address] [place], [place] [phone] PCP - General Family Medicine 01/22/23 Williams Rubin MD [address] [address] [place], [place] [phone] PCP Resident Family Medicine 01/22/23 Jeanie Murphy, visual managerPets And Pet 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 04/05/23 Sonia Carrera [facility] [address] [address] Pharmacy 12/05/23 Improvement Nurse Relationship Specialty Start Date End Date Homar Vasques MD [address] [address] [place], [place] [phone] PCP - General Family Medicine 01/22/23 Williams Rubin MD [address] [place], [place] [phone] PCP Resident Family Medicine 01/22/23 Jeanie Murphy visual managerPets And Pet 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 04/05/23 Sonia Carrera [facility] [address] [place] [address] [id number] Pharmacy 12/05/23 Improvement Nurse Relationship Specialty Start Date End Date Homar Vasques MD [address] [place], [place] [id number] PCP - General Family Medicine 01/22/23 Williams Rubin MD [address] [place], [place] [phone] PCP Resident Family Medicine 01/22/23 Jeanie Murphy, visual managerPets And Pet 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 04/05/23 Sonia Carrera, [facility] [address] [phone] Pharmacy 12/05/23 Improvement Nurse Relationship Specialty Start Date End Date Homar Vasques MD [address] [place], [place] [id number] PCP - General Family Medicine 01/22/23 Williams Rubin MD [address] [place], [place] [phone] PCP Resident Family Medicine 01/22/23 Jeanie Murphy RN 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 04/05/23 Sonia Carrera, [facility] [address] [phone] Pharmacy 12/05/23 Improvement Nurse Relationship Specialty Start Date End Date Homar Vasques MD [address] [place], [place] [phone] PCP - General Family Medicine 01/22/23 Williams Rubin MD [address] [place], [place] [id number] PCP Resident Family Medicine 01/22/23 Jeanie Murphy, visual managerPets And Pet 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 04/05/23 Sonia Carrera, [facility] [address] [phone] Pharmacist Pharmacy 12/05/23 Improvement Nurse Relationship Specialty Start Date End Date Homar Vasques MD [address] [place], [place] [phone] PCP - General Family Medicine 01/22/23 Williams Rubin MD [address] [place], [place] [phone] PCP Resident Family Medicine 01/22/23 Jeanie Murphy visual managerPets And Pet 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 04/05/23 Sonia Carrera [facility] [address] [phone] Pharmacist Pharmacy 12/05/23 Improvement Nurse Relationship Specialty Start Date End Date Homar Vasques MD [address] [place], [place] [phone] PCP - General Family Medicine 01/22/23 Williams Rubin MD [address] [place], [place] [phone] PCP Resident Family Medicine 01/22/23 Jeanie Murphy RN 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 04/05/23 Sonia Carrera [facility] [address] [id number] Pharmacist Pharmacy 12/05/23 Improvement Nurse Relationship Specialty Start Date End Date Homar Vasques MD [address] [place], [place] [phone] PCP - General Family Medicine 01/22/23 Williams Rubin MD [address] [place] [address] PCP Resident Family Medicine 01/22/23 Jeanie Murphy visual managerPets And Pet 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 04/05/23 Sonia Carrera [facility] [address] [id number] Pharmacist Pharmacy 12/05/23 Improvement Nurse Relationship Specialty Start Date End Date Homar Vasques MD [address] [place] [address] PCP - General Family Medicine 01/22/23 Williams Rubin MD [address] [place] [address] PCP Resident Family Medicine 01/22/23 Jeanie Murphy, visual managerPets And Pet 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 04/05/23 [facility] [address] [phone] Pharmacist Pharmacy 12/05/23 Improvement Nurse Relationship Specialty Start Date End Date Homar Vasques MD [address] [place], [place] [phone] PCP - General Family Medicine 01/22/23 Williams Rubin MD [address] [place], [place] [phone] PCP Resident Family Medicine 01/22/23 Jeanie Murphy RN 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 04/05/23 [facility] [address] [phone] Pharmacist Pharmacy 12/05/23 Improvement Nurse Relationship Specialty Start Date End Date Homar Vasques MD [address] [place], [place] [phone] PCP - General Family Medicine 01/22/23 Williams Rubin MD [address] [place], [place] [phone] PCP Resident Family Medicine 01/22/23 Jeanie Murphy RN 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 04/05/23 Sonia Carrera, [facility] [address] [phone] Pharmacist Pharmacy 12/05/23 Improvement Nurse Relationship Specialty Start Date End Date Homar Vasques MD [address] [place], [place] [phone] PCP - General Family Medicine 01/22/23 Williams Rubin MD [address] [place] [address] [place], [place] [phone] PCP Resident Family Medicine 01/22/23 Jeanie Murphy RN 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 04/05/23 [facility] [address] [phone] Pharmacist Pharmacy 12/05/23 Improvement Nurse Relationship Specialty Start Date End Date Homar Vasques MD [address] [place], [place] [phone] PCP - General Family Medicine 01/22/23 Williams Rubin MD [address] [place] [address] PCP Resident Family Medicine 01/22/23 Jeanie Murphy RN 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 04/05/23 Sonia Carrera, [facility] [address] [phone] Pharmacist Pharmacy 12/05/23 Improvement Nurse Relationship Specialty Start Date End Date Homar Vasques MD [address] [place], [place] [phone] PCP - General Family Medicine 01/22/23 Williams Rubin MD [address] [place] [address] PCP Resident Family Medicine 01/22/23 Jeanie Murphy RN 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 04/05/23 [facility] [address] [phone] Pharmacist Pharmacy 12/05/23 Improvement Nurse Relationship Specialty Start Date End Date Homar Vasques MD [address] [place], [place] [phone] PCP - General Family Medicine 01/22/23 Williams Rubin MD [address] [place] [address] [place], [place] [phone] PCP Resident Family Medicine 01/22/23 Jeanie Murphy RN 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 04/05/23 [facility] [address] [id number] Pharmacist Pharmacy 12/05/23 Improvement Nurse Relationship Specialty Start Date End Date Homar Vasques MD [address] [address] [place], [place] [phone] PCP - General Family Medicine 01/22/23 Williams Rubin MD [address] [place] [address] PCP Resident Family Medicine 01/22/23 Jeanie Murphy RN 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 04/05/23 Sonia Carrera, [facility] [address] [id number] Pharmacist Pharmacy 12/05/23 Improvement Nurse Relationship Specialty Start Date End Date Jeanie Murphy RN 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 04/05/23 Sonia Carrera, [facility] [address] [phone] Pharmacist Pharmacy 12/05/23 Team Status: Active Member [...] Star t: November 21, 2024 Dr. Mariah rBewer MD Other Provider Active Star t: November 21, 2024 Dr. Karthik Tang MD Other Provider Active Start: November 21, 2024 Dr. Clifton Alexander MD Other Provider Active Start: November 21, 2024 Dr. Clifford Cody MD Other Provider Active Star t: November 21, 2024 Dr. Deon Mcclellan , DO Other [...] Start : November 21, 2024 Dr. Lara Duarnt MD Other Provider Active Star t: November [...] November 21, 2024 Dr. Varun Collier , DO Other Provider Active Start: November 21, 2024 Dr. Yusuf Field MD Other Provider Active Star t: November 21, 2024 Dr. Thomas Paulino MD Other Provider Active Sta rt: November 21, 2024 Dr. Haider Smith , DO Attending Provider Active Start: November 21, 2024 Dr. Haider Smith , DO Other [...] t: November 22, 2024 Dr. Deon Mcclellan DO Other Provider [...] November 23, 2024 Dr. Deon Mcclellan , Other Provider [...] November 23, 2024 Dr. Deon Mcclellan , Other Provider [...] Start: November 24, 2024 Dr. Haider Smith , [...] November 25, 2024 Dr. Flash [place] , Other Provider Active St art: November 25, 2024 Dr. Lida Falcon MD Other Provider Active Start: November 25, 2024 Dr. Jhony Zhang MD Other Provider Active St art: November 25, 2024 Dr. Varun Collier DO Other Provider Active Start: November 25, 2024 Dr. Yusuf Field MD Other Provider Active Star t: November 25, 2024 Dr. Thomas aPulino MD Other Provider Active Sta rt: November 25, 2024 Dr. Jean Trujillo MD Other Provider Active Start : November 25, 2024 Dr. Michel Haq MD Other Provider Active Start: November 25, 2024 Team Status: Active Member Role Status Dates Dr. Lisseth Peñaloza MD Primary Care Provider Active Start: November 26, 2024 Dr. Javy Saul , Emergency Provider Active Start: November 26, 2024 [...] t: November 26, 2024 Dr. Deon Mcclellan , Other Provider [...] art: November 26, 2024 Dr. Varun Collier DO Other Provider Active Start: November 26, 2024 [...] December 15, 2024 End: December 15, 2024 Team Status: Active Member Role Status Dates Dr. Lisseth Peñaloza MD Primary Care Provider Active Start: December 20, 2024 Dr. Hannah Nevarez DO Referring Provider Active Start: December 20, 2024 Dr. Hannah Nevarez DO Emergency Provider Active Start: December 20, 2024 Dr. Nicole Dobson MD Attending Provider Active Start: December 20, 2024 Team Status: Active Member Role Status Dates Dr. Lisseth Peñaloza MD Primary Care Provider Active Start: December 20, 2024 Dr. Hannah Nevarez DO Referring Provider Active Start: December 20, 2024 Dr. Hannah Nevarez DO Emergency Provider Active Start: December 20, 2024 Dr. Nicole Dobson MD Admit Provider Active St art: December 20, 2024 Dr. Nicole Dobson MD Attending Provider Active Start: December 20, 2024 Team Status: Inactive Member Role Status Dates Dr. Lisseth Peñaloza MD Primary Care Provider Active Start: December 20, 2024 End: December 23, 2024 Dr. Hannah Nevarez DO Referring Provider Active Start: December 20, 2024 End: December 23, 2024 Dr. Hannah Nevarez DO Emergency Provider Active Start: December 20, 2024 End: December 23, 2024 Dr. Nicole Dobson MD Admit Provider Active St art: December 20, 2024 End: December 23, 2024 Dr. Nicole Dobson MD Other Provider Active St art: December 20, 2024 End: December 23, 2024 Dr. Josie Rivera DO Attending Provider Active Start: December 20, 2024 End: December 23, 2024 Dr. Michel Haq MD Other Provider Active Start: December 20, 2024 End: December 23, 2024 Team Status: Active Member Role Status Dates Dr. Lisseth Peñaloza MD Primary Care Provider Active Start: December 21, 2024 Dr. Hannah Nevarez DO Referring Provider Active Start: December 21, 2024 Dr. Hannah Nevarez DO Emergency Provider Active Start: December 21, 2024 Dr. Nicole Dobson MD Admit Provider Active St art: December 21, 2024 Dr. Nicole Dobson MD Other Provider Active St art: December 21, 2024 Dr. Josie Rivera DO Attending Provider Active Start: December 21, 2024 Dr. Josie Rivera DO Other Provider Active S tart: December 21, 2024 Dr. Michel Haq MD Other Provider Active Start: December 21, 2024 Team Status: Active Member Role Status Dates Dr. Lisseth Peñaloza MD Primary Care Provider Active Start: December 22, 2024 Dr. Hannah Nevarez DO Referring Provider Active Start: December 22, 2024 Dr. Hannah Nevarez DO Emergency Provider Active Start: December 22, 2024 Dr. Nicole Dobson MD Admit Provider Active St art: December 22, 2024 Dr. Nicole Dobson MD Other Provider Active St art: December 22, 2024 Dr. Josie Rivera DO Attending Provider Active Start: December 22, 2024 Dr. Josie Rivera DO Other Provider Active S tart: December 22, 2024 Dr. Michel Haq MD Other Provider Active Start: December 22, 2024 Team Status: Inactive Member Role Status Dates Dr. Lisseth Peñaloza MD Primary Care Provider Active Start: November 27, 2024 End: November 27, 2024 Dr. Jean Trujillo MD Attending Provider Active S tart: November 27, 2024 End: November 27, 2024 Team Status: Active Member Role Status Dates Dr. Lisseth Peñaloza MD Primary Care Provider Active Start: December 20, 2024 Dr. Hannah Nevarez DO Emergency Provider Active Start: December 20, 2024 Dr. Nicole Dobson MD Attending Provider Active Start: December 20, 2024 Team Status: Active Member Role Status Dates Dr. Lisseth Peñaloza MD Primary Care Provider Active Start: December 21, 2024 Dr. Hannah Nevarez DO Emergency Provider Active Start: December 21, 2024 Dr. Nicole Dobson MD Admit Provider Active St art: December 21, 2024 Dr. Nicole Dobson MD Other Provider Active St art: December 21, 2024 Dr. Josie Rivera DO Attending Provider Active Start: December 21, 2024 Dr. Josie Rivera DO Other Provider Active S tart: December 21, 2024 Dr. Michel Haq MD Other Provider Active Start: December 21, 2024 Team Status: Active Member Role Status Dates Dr. Lisseth Peñaloza MD Primary Care Provider Active Start: December 22, 2024 End: December 22, 2024 Dr. Kasandra Hinkle MD Attending Provider Active Start: December 22, 2024 End: December 22, 2024 Dr. Nicole Dobson MD Referring Provider Active Start: December 22, 2024 End: December 22, 2024 Team Status: Active Member Role Status Dates Dr. Lisseth Peñaloza MD Primary Care Provider Active Start: December 22, 2024 Dr. Hannah Nevarez DO Emergency Provider Active Start: December 22, 2024 Dr. Nicole Dobson MD Admit Provider Active St art: December 22, 2024 Dr. Nicole Dobson MD Other Provider Active St art: December 22, 2024 Dr. Josie Rivera DO Attending Provider Active Start: December 22, 2024 Dr. Josie Rivera DO Other Provider Active S tart: December 22, 2024 Dr. Michel Haq MD Other Provider Active Start: December 22, 2024 Team Status: Active Member Role Status Dates Dr. Lisseth Peñaloza MD Primary Care Provider Active Start: December 28, 2024 Dr. Hannah Nevarez DO Referring Provider Active Start: December 28, 2024 Dr. Hannah Nevarez DO Emergency Provider Active Start: December 28, 2024 Dr. Nicole Dobson MD Admit Provider Active St art: December 28, 2024 Dr. Nicole Dobson MD Other Provider Active St art: December 28, 2024 Dr. Josie Rivera DO Attending Provider Active Start: December 28, 2024 Dr. Josie Rivera DO Other Provider Active S tart: December 28, 2024 Dr. Michel Haq MD Other Provider Active Start: December 28, 2024 Improvement Nurse Relationship Specialty Start Date End Date Kaitlyn Hall MD PCP - General Family Medicine 01/28/14 12/23/24 Lisseth Peñaloza MD [address] [place] [id number] Internal Medicine 12/24/24 Team Status: Active Member Role/Relationship Status Dates Dr. Lisseth Peñaloza MD Primary Care Provider Active Team Status: Inactive Member Role/Relationship Status Dates Dr. Lisseth Peñaloza MD Primary Care Provider Active Start: October 15, 2024 End: October 15, 2024 Dr. Lisseth Peñaloza MD Referring Provider Active Start: October 15, 2024 End: October 15, 2024 Sonia Quarles NP-C Attending Provider Active Start: October 15, 2024 End: October 15, 2024 Team Status: Inactive Member Role/Relationship Status Dates Dr. Lisseth Peñaloza MD Primary Care Provider Active Start: October 19, 2024 End: October 19, 2024 Dr. Lisseth Peñaloza MD Attending Provider Active Start: October 19, 2024 End: October 19, 2024 Dr. Lisseth Peñaloza MD Referring Provider Active Start: October 19, 2024 End: October 19, 2024 Team Status: Inactive Member Role/Relationship Status Dates No Primary Care Physician Referring Provider Active Start: November 04, 2024 End: November 04, 2024 Shawanda Keane PA, PA Attending Provider Active Start: November 04, 2024 End: November 04, 2024 Dr. Lisseth Peñaloza MD Primary Care Provider Active Start: November 04, 2024 End: November 04, 2024 Team Status: Inactive Member Role/Relationship Status Dates Dr. Lisseth Peñaloza MD Primary [...] November 07, 2024 Team Status: Inactive Member Role/Relationship Status Dates Dr. Lisseth Peñaloza MD Primary Care Provider Active Start: November 09, 2024 End: November 09, 2024 Dr. Jean Trujillo MD Attending Provider Active S tart: November 09, 2024 End: November 09, 2024 Team Status: Inactive Member Role/Relationship Status Dates Dr. Lisseth Peñaloza MD Primary Care Provider Active Start: November 09, 2024 End: November 09, 2024 Dr. Lisseth Peñaloza MD Referring Provider Active Start: November 09, 2024 End: November 09, 2024 Dr. Jean Trujillo MD Attending Provider Active S tart: November 09, 2024 End: November 09, 2024 Team Status: Inactive Member Role/Relationship Status Dates Dr. Lisseth Peñaloza MD Primary [...] November 26, 2024 Dr. Varun Collier , DO Other Provider Active Start: November 20, 2024 [...] November 26, 2024 Dr. Haider Smith , DO Other Provider Active Star t: November 20, 2024 End: November 26, 2024 Team Status: Active Member Role/Relationship Status Dates Dr. Lisseth Peñaloza MD Primary [...] t: November 21, 2024 Dr. Deon Mcclellan , Other Provider [...] November 21, 2024 Dr. Flash [place] , Other Provider Active St art: November 21, [...] November 21, 2024 Team Status: Active Member Role/Relationship Status Dates Dr. Lisseth Peñaloza MD Primary Care Provider Active Start: November 21, 2024 Dr. Radha Dumont MD Attending Provider Active Start: November 21, 2024 Team Status: Active Member Role/Relationship Status Dates Dr. Lisseth Peñaloza MD Primary Care Provider Active Start: November 22, 2024 Dr. Javy Saul , Emergency Provider Active Start: November 22, 2024 Dr. Mariah Brewer MD Admit Provider Active Star t: November 22, 2024 Dr. Mariah Brewer MD Other Provider Active Star t: November 22, 2024 Dr. Haider Smith , DO Attending Provider Active Start: November 22, [...] November 22, 2024 Team Status: Active Member Role/Relationship Status Dates Dr. Lisseth Peñaloza MD Primary [...] Active St art: November 22, 2024 Dr. Scuot Curry MD Other Provider Active S tart: [...] November 22, 2024 Dr. Flash [place] , Other Provider Active St art: November 22, [...] November 22, 2024 Team Status: Active Member Role/Relationship Status Dates Dr. Lisseth Peñaloza MD Primary Care Provider Active Start: November 23, 2024 Dr. Javy Saul DO Emergency Provider Active Start: November 23, 2024 Dr. Mariah Brewer MD Admit Provider Active Star t: November 23, 2024 Dr. Mariah Brewer MD Other Provider Active Star t: November 23, 2024 Dr. Haider Smith DO Attending Provider Active Start: November 23, 2024 Dr. Haider Smith DO Other Provider Active Star t: November 23, 2024 Dr. Karthik Tang MD Other Provider Active Start: November 23, 2024 Dr. Clifton Alexander MD Other Provider Active Start: November 23, 2024 Dr. Clifford Cody MD Other Provider Active Star t: November 23, 2024 Dr. Deon Mcclellan DO Other Provider [...] November 23, 2024 Team Status: Active Member Role/Relationship Status Dates Dr. Lisseth Peñaloza MD Primary Care Provider Active Start: November 23, 2024 Dr. Javy Saul , Emergency Provider Active Start: November 23, 2024 Dr. Mariah Brewer MD Admit Provider Active Star t: November 23, 2024 Dr. Mariah Brewer MD Other Provider Active Star t: November 23, 2024 Dr. Haider Smith , Other Provider Active Star t: November 23, 2024 Dr. Karthik Tang MD Other Provider Active Start: November 23, 2024 Dr. Clifton Alexander MD Other Provider Active Start: November 23, 2024 Dr. Clifford Cody MD Other Provider Active Star t: November 23, 2024 Dr. Deon Mcclellan , Other Provider [...] November 23, 2024 Team Status: Active Member Role/Relationship Status Dates Dr. Lisseth Peñaloza MD Primary Care Provider Active Start: November 23, 2024 Dr. Jean Trujillo MD Attending Provider Active S tart: November 23, 2024 Team Status: Active Member Role/Relationship Status Dates Dr. Lisseth Peñaloza MD Primary [...] November 24, 2024 Dr. Deon Mcclellan , DO Other [...] November 24, 2024 Team Status: Active Member Role/Relationship Status Dates Dr. Lisseth Peñaloza MD Primary [...] Start: November 24, 2024 Dr. Haider Smith , [...] November 24, 2024 Team Status: Active Member Role/Relationship Status Dates Dr. Lisseth Peñaloza MD Primary [...] Active Star t: November 25, 2024 Dr. Doen Mcclellan , Other Provider Active Start : [...] November 25, 2024 Dr. Flash Newton , Other Provider Active St art: November 25, [...] November 25, 2024 Team Status: Active Member Role/Relationship Status Dates Dr. Lisseth Peñaloza MD Primary [...] art: November 26, 2024 Dr. Varun Collier DO Other Provider Active Start: November 26, 2024 [...] November 26, 2024 Team Status: Inactive Member Role/Relationship Status Dates Dr. Lisseth Peñaloza MD Primary Care Provider Active Start: November 27, 2024 End: November 27, 2024 Dr. Jean Trujillo MD Attending Provider Active S tart: November 27, 2024 End: November 27, 2024 Team Status: Inactive Member Role/Relationship Status Dates Dr. Lisseth Peñaloza MD Primary Care Provider Active Start: November 27, 2024 End: November 28, 2024 Dr. Haider Valdes , Attending Provider Active Start: November 27, 2024 End: November 28, 2024 Dr. Haider Valdes , Emergency Provider Active Start: November 27, 2024 End: November 28, 2024 Team Status: Inactive Member Role/Relationship Status Dates Dr. Lisseth Peñaloza MD Primary Care Provider Active Start: December 01, 2024 End: December 01, 2024 Dr. Michel Haq MD Attending Provider Active Start: December 01, 2024 End: December 01, 2024 Team Status: Inactive Member Role/Relationship Status Dates Dr. Lisseth Peñaloza MD Primary Care Provider Active Start: December 01, 2024 End: December 01, 2024 Dr. Michel Haq MD Attending Provider Active Start: December 01, 2024 End: December 01, 2024 Dr. Michel Haq MD Referring Provider Active Start: December 01, 2024 End: December 01, 2024 Team Status: Inactive Member Role/Relationship Status Dates Dr. Lisseth Peñaloza MD Primary Care Provider Active Start: December 08, 2024 End: December 08, 2024 Dr. Michel Haq MD Attending Provider Active Start: December 08, 2024 End: December 08, 2024 Team Status: Inactive Member Role/Relationship Status Dates Dr. Lisseth Peñaloza MD Primary Care Provider Active Start: December 09, 2024 End: December 09, 2024 Dr. Lisseth Peñaloza MD Referring Provider Active Start: December 09, 2024 End: December 09, 2024 STACY Cunha Attending Provider Active St art: December 09, 2024 End: December 09, 2024 Team Status: Inactive Member Role/Relationship Status Dates Dr. Lisseth Peñaloza MD Primary Care Provider Active Start: December 10, 2024 End: December 10, 2024 Dr. Lisseth Peñaloza MD Referring Provider Active Start: December 10, 2024 End: December 10, 2024 OVIDIO Corbin Attending Provider Active Start: December 10, 2024 End: December 10, 2024 Team Status: Inactive Member Role/Relationship Status Dates Dr. Lisseth Peñaloza MD Primary Care Provider Active Start: December 15, 2024 End: December 15, 2024 Dr. Michel Haq MD Attending Provider Active Start: December 15, 2024 End: December 15, 2024 Team Status: Active Member Role/Relationship Status Dates Dr. Lisseth Peñaloza MD Primary Care Provider Active Start: December 20, 2024 Dr. Hannah Nevarez DO Emergency Provider Active Start: December 20, 2024 Dr. Nicole Dobson MD Attending Provider Active Start: December 20, 2024 Team Status: Inactive Member Role/Relationship Status Dates Dr. Lisseth Peñaloza MD Primary Care Provider Active Start: December 20, 2024 End: December 23, 2024 Dr. Hannah Nevarez DO Referring Provider Active Start: December 20, 2024 End: December 23, 2024 Dr. Hannah Nevarez DO Emergency Provider Active Start: December 20, 2024 End: December 23, 2024 Dr. Nicole Dobson MD Admit Provider Active St art: December 20, 2024 End: December 23, 2024 Dr. Nicole Dobson MD Other Provider Active St art: December 20, 2024 End: December 23, 2024 Dr. Josie Rivera DO Attending Provider Active Start: December 20, 2024 End: December 23, 2024 Dr. Michel Haq MD Other Provider Active Start: December 20, 2024 End: December 23, 2024 Team Status: Active Member Role/Relationship Status Dates Dr. Lisseth Peñaloza MD Primary Care Provider Active Start: December 21, 2024 Dr. Hannah Nevarez DO Emergency Provider Active Start: December 21, 2024 Dr. Nicole Dobson MD Admit Provider Active St art: December 21, 2024 Dr. Nicole Dobson MD Other Provider Active St art: December 21, 2024 Dr. Josie Rivera DO Attending Provider Active Start: December 21, 2024 Dr. Josie Rivera DO Other Provider Active S tart: December 21, 2024 Dr. Michel Haq MD Other Provider Active Start: December 21, 2024 Team Status: Active Member Role/Relationship Status Dates Dr. Lisseth Peñaloza MD Primary Care Provider Active Start: December 22, 2024 End: December 22, 2024 Dr. Kasandra Hinkle MD Attending Provider Active Start: December 22, 2024 End: December 22, 2024 Dr. Nicole Dobson MD Referring Provider Active Start: December 22, 2024 End: December 22, 2024 Team Status: Active Member Role/Relationship Status Dates Dr. Lisseth Peñaloza MD Primary Care Provider Active Start: December 22, 2024 Dr. Hannah Nevarez DO Emergency Provider Active Start: December 22, 2024 Dr. Nicole Dobson MD Admit Provider Active St art: December 22, 2024 Dr. Nicole Dobson MD Other Provider Active St art: December 22, 2024 Dr. Josie Rivera DO Attending Provider Active Start: December 22, 2024 Dr. Josie Rivera DO Other Provider Active S tart: December 22, 2024 Dr. Michel Haq MD Other Provider Active Start: December 22, 2024 Team Status: Active Member Role/Relationship Status Dates Dr. Lisseth Peñaloza MD Primary Care Provider Active Start: December 28, 2024 Dr. Hannah Nevarez DO Emergency Provider Active Start: December 28, 2024 Dr. Nicole Dobson MD Admit Provider Active St art: December 28, 2024 Dr. Nicole Dobson MD Other Provider Active St art: December 28, 2024 Dr. Josie Rivera DO Attending Provider Active Start: December 28, 2024 Dr. Josie Rivera DO Other Provider Active S tart: December 28, 2024 Dr. Michel Haq MD Other Provider Active Start: December 28, 2024 Team Status: Inactive Member Role/Relationship Status Dates Dr. Lisseth Peñaloza MD Primary Care Provider Active Start: January 12, 2025 End: January 12, 2025 BRENDA MAYO Attending Provider Active Start: 2024 End: January 12, 2025 BRENDA MAYO Referring Provider Active Start: J [email or web address] End: January 12, 2025 Team Status: Inactive Member Role/Relationship Status Dates Dr. Lisseth Peñaloza MD Primary Care Provider Active Start: January 19, 2025 End: January 19, 2025 BRENDA MAYO Attending Provider Active Start: y 2024 End: January 19, 2025 BRENDA MAYO Referring Provider Active Start: J amina 2024 End: January 19, 2025 Team Status: Inactive Member Role/Relationship Status Dates Dr. Lisseth Peñaloza MD Primary Care Provider Active Start: February 03, 2025 End: February 03, 2025 Dr. Lisseth Peñaloza MD Referring Provider Active Start: February 03, 2025 End: February 03, 2025 STACY Cunha Attending Provider Active St art: February 03, 2025 End: February 03, 2025 Team Status: Inactive Member Role/Relationship Status Dates Dr. Lisseth Peñaloza MD Primary Care Provider Active Start: February 04, 2025 End: February 04, 2025 Dr. Lisseth Peñaloza MD Referring Provider Active Start: February 04, 2025 End: February 04, 2025 STACY Hwang Attending Provider Active Start: February 04, 2025 End: February 04, 2025 Goals (unrecognized section and content) Goals may be documented in a n alternate section Source Comments (unrecognize d section and content) In the event this informatio n is protected by the Federal Confidentiality of Alcohol and Drug Abuse Patient Records regulations: The Federal rules restrict any use of the information to criminally investigate or prosecute any alcohol or drug abuse patient.[facility] the event this information is protected by the Federal Confidentiality of Alcohol and Drug Abuse Patient Records regulations: The Federal rules restrict any use of the information to criminally investigate or prosecute any alcohol or drug abuse patient.[facility]In the event this information is protected by the Federal Confidentiality of Alcohol and Drug Abuse Patient Records regulations: The Federal rules restrict any use of the information to criminally investigate or prosecute any alcohol or drug abuse patient.[facility]In the event this information is protected by the Federal Confidentiality of Alcohol and Drug Abuse Patient Records regulations: The Federal rules restrict any use of the information to criminally investigate or prosecute any alcohol or drug abuse patient.[facility]In the event this information is protected by the Federal Confidentiality of Alcohol and Drug Abuse Patient Records regulations: The Federal rules restrict any use of the information to criminally investigate or prosecute any alcohol or drug abuse patient.[facility]In the event this information is protected by the Federal Confidentiality of Alcohol and Drug Abuse Patient Records regulations: The Federal rules restrict any use of the information to criminally investigate or prosecute any alcohol or drug abuse patient.[facility]In the event this information is protected by the Federal Confidentiality of Alcohol and Drug Abuse Patient Records regulations: The Federal rules restrict any use of the information to criminally investigate or prosecute any alcohol or drug abuse patient.[facility]In the event this information is protected by the Federal Confidentiality of Alcohol and Drug Abuse Patient Records regulations: The Federal rules restrict any use of the information to criminally investigate or prosecute any alcohol or drug abuse patient.[facility]In the event this information is protected by the Federal Confidentiality of Alcohol and Drug Abuse Patient Records regulations: The Federal rules restrict any use of the information to criminally investigate or prosecute any alcohol or drug abuse patient.[facility]In the event this information is protected by the Federal Confidentiality of Alcohol and Drug Abuse Patient Records regulations: The Federal rules restrict any use of the information to criminally investigate or prosecute any alcohol or drug abuse patient.[facility] HospitalIn the event this information is protected by the Federal Confidentiality of Alcohol and Drug Abuse Patient Records regulations: The Federal rules restrict any use of the information to criminally investigate or prosecute any alcohol or drug abuse patient.[facility] HospitalIn the event this information is protected by the Federal Confidentiality of Alcohol and Drug Abuse Patient Records regulations: The Federal rules restrict any use of the information to criminally investigate or prosecute any alcohol or drug abuse patient.[facility] HospitalIn the event this information is protected by the Federal Confidentiality of Alcohol and Drug Abuse Patient Records regulations: The Federal rules restrict any use of the information to criminally investigate or prosecute any alcohol or drug abuse patient.[facility] HospitalIn the event this information is protected by the Federal Confidentiality of Alcohol and Drug Abuse Patient Records regulations: The Federal rules restrict any use of the information to criminally investigate or prosecute any alcohol or drug abuse patient.[facility] HospitalIn the event this information is protected by the Federal Confidentiality of Alcohol and Drug Abuse Patient Records regulations: The Federal rules restrict any use of the information to criminally investigate or prosecute any alcohol or drug abuse patient.[facility] HospitalIn the event this information is protected by the Federal Confidentiality of Alcohol and Drug Abuse Patient Records regulations: The Federal rules restrict any use of the information to criminally investigate or prosecute any alcohol or drug abuse patient.[facility] HospitalIn the event this information is protected by the Federal Confidentiality of Alcohol and Drug Abuse Patient Records regulations: The Federal rules restrict any use of the information to criminally investigate or prosecute any alcohol or drug abuse patient.[facility] HospitalIn the event this information is protected by the Federal Confidentiality of Alcohol and Drug Abuse Patient Records regulations: The Federal rules restrict any use of the information to criminally investigate or prosecute any alcohol or drug abuse patient.[facility] HospitalIn the event this information is protected by the Federal Confidentiality of Alcohol and Drug Abuse Patient Records regulations: The Federal rules restrict any use of the information to criminally investigate or prosecute any alcohol or drug abuse patient.[facility] HospitalIn the event this information is protected by the Federal Confidentiality of Alcohol and Drug Abuse Patient Records regulations: The Federal rules restrict any use of the information to criminally investigate or prosecute any alcohol or drug abuse patient.[facility] HospitalIn the event this information is protected by the Federal Confidentiality of Alcohol and Drug Abuse Patient Records regulations: The Federal rules restrict any use of the information to criminally investigate or prosecute any alcohol or drug abuse patient.[facility] HospitalIn the event this information is protected by the Federal Confidentiality of Alcohol and Drug Abuse Patient Records regulations: The Federal rules restrict any use of the information to criminally investigate or prosecute any alcohol or drug abuse patient.[facility] HospitalIn the event this information is protected by the Federal Confidentiality of Alcohol and Drug Abuse Patient Records regulations: The Federal rules restrict any use of the information to criminally investigate or prosecute any alcohol or drug abuse patient.[facility] HospitalIn the event this information is protected by the Federal Confidentiality of Alcohol and Drug Abuse Patient Records regulations: The Federal rules restrict any use of the information to criminally investigate or prosecute any alcohol or drug abuse patient.[facility] HospitalIn the event this information is protected by the Federal Confidentiality of Alcohol and Drug Abuse Patient Records regulations: The Federal rules restrict any use of the information to criminally investigate or prosecute any alcohol or drug abuse patient.[facility] HospitalIn the event this information is protected by the Federal Confidentiality of Alcohol and Drug Abuse Patient Records regulations: The Federal rules restrict any use of the information to criminally investigate or prosecute any alcohol or drug abuse patient.[facility] HospitalIn the event this information is protected by the Federal Confidentiality of Alcohol and Drug Abuse Patient Records regulations: The Federal rules restrict any use of the information to criminally investigate or prosecute any alcohol or drug abuse patient.[facility] HospitalIn the event this information is protected by the Federal Confidentiality of Alcohol and Drug Abuse Patient Records regulations: The Federal rules restrict any use of the information to criminally investigate or prosecute any alcohol or drug abuse patient.[facility] HospitalIn the event this information is protected by the Federal Confidentiality of Alcohol and Drug Abuse Patient Records regulations: The Federal rules restrict any use of the information to criminally investigate or prosecute any alcohol or drug abuse patient.[facility] HospitalIn the event this information is protected by the Federal Confidentiality of Alcohol and Drug Abuse Patient Records regulations: The Federal rules restrict any use of the information to criminally investigate or prosecute any alcohol or drug abuse patient.[facility] HospitalIn the event this information is protected by the Federal Confidentiality of Alcohol and Drug Abuse Patient Records regulations: The Federal rules restrict any use of the information to criminally investigate or prosecute any alcohol or drug abuse patient.[facility] HospitalIn the event this information is protected by the Federal Confidentiality of Alcohol and Drug Abuse Patient Records regulations: The Federal rules restrict any use of the information to criminally investigate or prosecute any alcohol or drug abuse patient.[facility] HospitalIn the event this information is protected by the Federal Confidentiality of Alcohol and Drug Abuse Patient Records regulations: The Federal rules restrict any use of the information to criminally investigate or prosecute any alcohol or drug abuse patient.[facility] HospitalIn the event this information is protected by the Federal Confidentiality of Alcohol and Drug Abuse Patient Records regulations: The Federal rules restrict any use of the information to criminally investigate or prosecute any alcohol or drug abuse patient.[facility] HospitalIn the event this information is protected by the Federal Confidentiality of Alcohol and Drug Abuse Patient Records regulations: The Federal rules restrict any use of the information to criminally investigate or prosecute any alcohol or drug abuse patient.[facility] HospitalIn the event this information is protected by the Federal Confidentiality of Alcohol and Drug Abuse Patient Records regulations: The Federal rules restrict any use of the information to criminally investigate or prosecute any alcohol or drug abuse patient.[facility] HospitalIn the event this information is protected by the Federal Confidentiality of Alcohol and Drug Abuse Patient Records regulations: The Federal rules restrict any use of the information to criminally investigate or prosecute any alcohol or drug abuse patient.[facility] HospitalIn the event this information is protected by the Federal Confidentiality of Alcohol and Drug Abuse Patient Records regulations: The Federal rules restrict any use of the information to criminally investigate or prosecute any alcohol or drug abuse patient.[facility] HospitalIn the event this information is protected by the Federal Confidentiality of Alcohol and Drug Abuse Patient Records regulations: The Federal rules restrict any use of the information to criminally investigate or prosecute any alcohol or drug abuse patient.[facility] HospitalIn the event this information is protected by the Federal Confidentiality of Alcohol and Drug Abuse Patient Records regulations: The Federal rules restrict any use of the information to criminally investigate or prosecute any alcohol or drug abuse patient.[facility] HospitalIn the event this information is protected by the Federal Confidentiality of Alcohol and Drug Abuse Patient Records regulations: The Federal rules restrict any use of the information to criminally investigate or prosecute any alcohol or drug abuse patient.[facility] HospitalIn the event this information is protected by the Federal Confidentiality of Alcohol and Drug Abuse Patient Records regulations: The Federal rules restrict any use of the information to criminally investigate or prosecute any alcohol or drug abuse patient.[facility] HospitalIn the event this information is protected by the Federal Confidentiality of Alcohol and Drug Abuse Patient Records regulations: The Federal rules restrict any use of the information to criminally investigate or prosecute any alcohol or drug abuse patient.[facility] HospitalIn the event this information is protected by the Federal Confidentiality of Alcohol and Drug Abuse Patient Records regulations: The Federal rules restrict any use of the information to criminally investigate or prosecute any alcohol or drug abuse patient.[facility] HospitalIn the event this information is protected by the Federal Confidentiality of Alcohol and Drug Abuse Patient Records regulations: The Federal rules restrict any use of the information to criminally investigate or prosecute any alcohol or drug abuse patient.[facility] HospitalIn the event this information is protected by the Federal Confidentiality of Alcohol and Drug Abuse Patient Records regulations: The Federal rules restrict any use of the information to criminally investigate or prosecute any alcohol or drug abuse patient.[facility] HospitalIn the event this information is protected by the Federal Confidentiality of Alcohol and Drug Abuse Patient Records regulations: The Federal rules restrict any use of the information to criminally investigate or prosecute any alcohol or drug abuse patient.[facility] HospitalIn the event this information is protected by the Federal Confidentiality of Alcohol and Drug Abuse Patient Records regulations: The Federal rules restrict any use of the information to criminally investigate or prosecute any alcohol or drug abuse patient.[facility] HospitalIn the event this information is protected by the Federal Confidentiality of Alcohol and Drug Abuse Patient Records regulations: The Federal rules restrict any use of the information to criminally investigate or prosecute any alcohol or drug abuse patient.[facility] HospitalIn the event this information is protected by the Federal Confidentiality of Alcohol and Drug Abuse Patient Records regulations: The Federal rules restrict any use of the information to criminally investigate or prosecute any alcohol or drug abuse patient.[facility] HospitalIn the event this information is protected by the Federal Confidentiality of Alcohol and Drug Abuse Patient Records regulations: The Federal rules restrict any use of the information to criminally investigate or prosecute any alcohol or drug abuse patient.[facility] HospitalIn the event this information is protected by the Federal Confidentiality of Alcohol and Drug Abuse Patient Records regulations: The Federal rules restrict any use of the information to criminally investigate or prosecute any alcohol or drug abuse patient.[facility] HospitalIn the event this information is protected by the Federal Confidentiality of Alcohol and Drug Abuse Patient Records regulations: The Federal rules restrict any use of the information to criminally investigate or prosecute any alcohol or drug abuse patient.[facility] HospitalIn the event this information is protected by the Federal Confidentiality of Alcohol and Drug Abuse Patient Records regulations: The Federal rules restrict any use of the information to criminally investigate or prosecute any alcohol or drug abuse patient.[facility] HospitalIn the event this information is protected by the Federal Confidentiality of Alcohol and Drug Abuse Patient Records regulations: The Federal rules restrict any use of the information to criminally investigate or prosecute any alcohol or drug abuse patient.[facility] HospitalIn the event this information is protected by the Federal Confidentiality of Alcohol and Drug Abuse Patient Records regulations: The Federal rules restrict any use of the information to criminally investigate or prosecute any alcohol or drug abuse patient.[facility] HospitalIn the event this information is protected by the Federal Confidentiality of Alcohol and Drug Abuse Patient Records regulations: The Federal rules restrict any use of the information to criminally investigate or prosecute any alcohol or drug abuse patient.[facility] HospitalIn the event this information is protected by the Federal Confidentiality of Alcohol and Drug Abuse Patient Records regulations: The Federal rules restrict any use of the information to criminally investigate or prosecute any alcohol or drug abuse patient.[facility] HospitalIn the event this information is protected by the Federal Confidentiality of Alcohol and Drug Abuse Patient Records regulations: The Federal rules restrict any use of the information to criminally investigate or prosecute any alcohol or drug abuse patient.[facility] HospitalIn the event this information is protected by the Federal Confidentiality of Alcohol and Drug Abuse Patient Records regulations: The Federal rules restrict any use of the information to criminally investigate or prosecute any alcohol or drug abuse patient.[facility] HospitalIn the event this information is protected by the Federal Confidentiality of Alcohol and Drug Abuse Patient Records regulations: The Federal rules restrict any use of the information to criminally investigate or prosecute any alcohol or drug abuse patient.[facility] HospitalIn the event this information is protected by the Federal Confidentiality of Alcohol and Drug Abuse Patient Records regulations: The Federal rules restrict any use of the information to criminally investigate or prosecute any alcohol or drug abuse patient.[facility] HospitalIn the event this information is protected by the Federal Confidentiality of Alcohol and Drug Abuse Patient Records regulations: The Federal rules restrict any use of the information to criminally investigate or prosecute any alcohol or drug abuse patient.[facility] HospitalIn the event this information is protected by the Federal Confidentiality of Alcohol and Drug Abuse Patient Records regulations: The Federal rules restrict any use of the information to criminally investigate or prosecute any alcohol or drug abuse patient.[facility] HospitalIn the event this information is protected by the Federal Confidentiality of Alcohol and Drug Abuse Patient Records regulations: The Federal rules restrict any use of the information to criminally investigate or prosecute any alcohol or drug abuse patient.[facility] HospitalIn the event this information is protected by the Federal Confidentiality of Alcohol and Drug Abuse Patient Records regulations: The Federal rules restrict any use of the information to criminally investigate or prosecute any alcohol or drug abuse patient.[facility] HospitalIn the event this information is protected by the Federal Confidentiality of Alcohol and Drug Abuse Patient Records regulations: The Federal rules restrict any use of the information to criminally investigate or prosecute any alcohol or drug abuse patient.[facility] HospitalIn the event this information is protected by the Federal Confidentiality of Alcohol and Drug Abuse Patient Records regulations: The Federal rules restrict any use of the information to criminally investigate or prosecute any alcohol or drug abuse patient.[facility] HospitalIn the event this information is protected by the Federal Confidentiality of Alcohol and Drug Abuse Patient Records regulations: The Federal rules restrict any use of the information to criminally investigate or prosecute any alcohol or drug abuse patient.[facility] HospitalIn the event this information is protected by the Federal Confidentiality of Alcohol and Drug Abuse Patient Records regulations: The Federal rules restrict any use of the information to criminally investigate or prosecute any alcohol or drug abuse patient.[facility] HospitalIn the event this information is protected by the Federal Confidentiality of Alcohol and Drug Abuse Patient Records regulations: The Federal rules restrict any use of the information to criminally investigate or prosecute any alcohol or drug abuse patient.[facility] HospitalIn the event this information is protected by the Federal Confidentiality of Alcohol and Drug Abuse Patient Records regulations: The Federal rules restrict any use of the information to criminally investigate or prosecute any alcohol or drug abuse patient.[facility] HospitalIn the event this information is protected by the Federal Confidentiality of Alcohol and Drug Abuse Patient Records regulations: The Federal rules restrict any use of the information to criminally investigate or prosecute any alcohol or drug abuse patient.[facility] HospitalIn the event this information is protected by the Federal Confidentiality of Alcohol and Drug Abuse Patient Records regulations: The Federal rules restrict any use of the information to criminally investigate or prosecute any alcohol or drug abuse patient.[facility] HospitalIn the event this information is protected by the Federal Confidentiality of Alcohol and Drug Abuse Patient Records regulations: The Federal rules restrict any use of the information to criminally investigate or prosecute any alcohol or drug abuse patient.[facility] HospitalIn the event this information is protected by the Federal Confidentiality of Alcohol and Drug Abuse Patient Records regulations: The Federal rules restrict any use of the information to criminally investigate or prosecute any alcohol or drug abuse patient.[facility] the event this information is protected by the Federal Confidentiality of Alcohol and Drug Abuse Patient Records regulations: The Federal rules restrict any use of the information to criminally investigate or prosecute any alcohol or drug abuse patient.[facility] Scheduled Active and Recently Administ ered Medications (unrecognized section and content) Medication Order 01/09/2025 01/10/2025 01/11/2025 carveDILOL (COREG) tablet 12.5 mg 12.5 mg, Oral, EVERY 12 HOURS, First dose (after last modification) on 01/10/25 at 2100, Until Discontinued 2139 (Given - Provider: Cherelle Moran RN) 0946 (Given - Provider: Nae Valadez RN) carveDILOL (COREG) tablet 25 mg (CANCELED) 25 mg, Oral, EVERY 12 HOURS, First dose (after last modification) on 01/09/25 at 0915, Until Discontinued 951 (Given - Provider: Elroy Dumont RN)2131 (Given - Provider: Cherelle Moran RN) 08 (Given - Provider: Elroy Dumont RN) Enoxaparin Sodium (LOVENOX) injection 40 mg(Linked Group 1) 40 mg, Subcutaneous, DAILY, First dose (after last modification) on Sat01/09/25 at 1100, Until Discontinued, For SUBCUTANEOUS route ONLY: alternate injection sites between left and right abdominal wall, pinching location and avoiding area around navel. If unable to use abdominal sites, may use the front or side of thighs., Indications: DVT/PE prophylaxis 1210 (Given - Provider: Elroy Dumont RN) 08 (Given - Provider: Elroy Dumont RN) 0947 (Given - Provider: Nae Valadez RN) Gabapentin (NEURONTIN) capsule 300 mg 300 mg, Oral, DAILY, First dose on Becky 12/24/24 at 0900, Until Discontinued 08 (Given - Provider: Elroy Dumont RN) 08 (Given - Provider: Elroy Dumont RN) 0946 (Given - Provider: Nae Valadez RN) insulin glargine-yfgn (SEMGLEE) injection 50 Units(Linked Group 2) 50 Units, Subcutaneous, EVERY 12 HOURS NON-STANDARD, First dose (after last modification) on Sat12/30/24 at 2200, Until Discontinued, Do not mix in syringe with other insulins. 0947 (Given - Provider: Elroy Dumont RN)2130 (Given - Provider: Cherelle Moran RN) 08 (Given - Provider: Elroy Dumont RN)2139 (Given - Provider: Cherelle Moran RN) 09 (Given - Provider: Nae Valadez RN) Insulin lispro (HUMALOG) injection 0-6 Units 0-6 Units, Subcutaneous, EVERY 24 HOURS, First dose on Becky 12/31/24 at 0300, Until Discontinued, 201-250 = 2 units 251-300 = 4 units 301-350 = 6 units 351-400 = 8 units > 400= 10 units Kwikpen: Prime pen before each injection; refer to Pen Priming and Care Handout for further details. Warning! Confirm patient. If insulin pen is used, then the pen is for labeled individual patient use ONLY. 030 (Not Given - Provider: Cherelle Moran RN - Reason: Order Parameters not met) 030 (Not Given - Provider: Cherelle Luisa, RN - Reason: Order Parameters not met) 0317 (Not Given - Provider: Cherelle Moran RN - Reason: Order Parameters not met) Insulin lispro (HUMALOG) injection(Linked Group 3) Subcutaneous, 4 TIMES DAILY WITH MEALS & AT BEDTIME, First dose (after last modification) on Sat12/29/24 at 0800, Until Discontinued, Insulin to carb ratio: Non-Standard: 1 unit insulin = 2 grams carbs every meal and at bedtime Correction Factor: 150-175 = 3 unit 176-200 = 6 units 201-225 = 9 units 226-250 = 12 units 251-275 = 15 units 276-300 = 18 units 301-325 = 21 units 326-350 = 24 units 351-375 = 27 units 376-400 = 30 units Kwikpen: Prime pen before each injection; refer to Pen Priming and Care Handout for further details. Warning! Confirm patient. Insulin pen is for labeled individual patient use ONLY. 0947 (Given - Provider: Elroy Dumont RN)1213 (Given - Provider: Elroy Dumont RN)1724 (Given - Provider: Elroy Dumont RN - Comment: patient request, low blood sugar at 1530)2130 (Given - Provider: Cherelle Moran RN) 0832 (Given - Provider: Elroy Dumont RN - Comment: per patient request)1402 (Given - Provider: Elroy Dumont RN - Comment: per patient request)1705 (Given - Provider: lEroy Dumont RN)2128 (Not Given - Provider: Cherelle Moran RN - Reason: Order Parameters not met) 0949 (Given - Provider: Nae Valadez RN - Comment: per patient request, not willing to cover all carb)1323 (Given - Provider: Nae Valadez RN)1700 (Canceled Entry - Provider: System Discharge - Comment: Automatically canceled at discontinue of medication order) lidocaine 4 % patch 1 patch 1 patch, Transdermal, Administer over 12 Hours, EVERY 24 HOURS, First dose on Sat01/07/25 at 0945, Until Discontinued, Apply to left schoulder . 0852 (Not Given - Provider: Elroy Dumont RN - Reason: Patient/family refused) 0837 (Not Given - Provider: Elryo Dumont RN - Reason: Patient/family refused) 0955 (Not Given - Provider: Nae Valadez RN - Reason: Patient/family refused) lidocaine 4 % patch 1 patch 1 patch, Transdermal, Administer over 12 Hours, EVERY 24 HOURS, First dose on Becky 01/07/25 at 0945, Until Discontinued, Apply to right shoulder . 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 0824 (Given - Provider: Elroy Dumont RN)2129 (Given - Provider: Cherelle Moran RN) 08 (Given - Provider: Elroy Dumont RN)2140 (Given - Provider: Cherelle Moran RN) 0946 (Given - Provider: Nae Valadez RN) Loratadine (CLARITIN) tablet 10 mg 10 mg, Oral, DAILY, First dose on Becky 12/24/24 at 0900, Until Discontinued 0822 (Given - Provider: Elroy Dumont RN) 0828 (Given - Provider: Elroy Dumont RN) 0946 (Given - Provider: Nae Valadez RN) magnesium oxide (MAG-OX) tablet 400 mg 400 mg, Oral, 2 TIMES DAILY, First dose on Becky 12/24/24 at 0900, Until Discontinued 0821 (Given - Provider: Elroy Dumont RN)1714 (Given - Provider: Elroy Dumont RN) 0828 (Given - Provider: Elroy Dumont RN)1706 (Given - Provider: Elroy Dumont RN) 0946 (Given - Provider: Nae Valadez RN)1700 (Canceled Entry - Provider: System Discharge - Comment: Automatically canceled at discontinue of medication order) Pantoprazole (PROTONIX) tablet DR 40 mg 40 mg, Oral, DAILY, First dose on Becky 12/24/24 at 0900, Until Discontinued, Swallow whole; do not crush or chew., Indications: Continuation of Home Therapy 0821 (Given - Provider: Elroy Dumont RN) 0829 (Given - Provider: Elroy Dumont RN) 0955 (Given - Provider: Nae Valadez, [place]) rOPINIRole (REQUIP) tablet 0.5 mg 0.5 mg, Oral, DAILY AT BEDTIME, First dose (after last modification) on Becky 12/24/24 at 2100, Until Discontinued, Max 24 mg/day 2131 (Given - Provider: Cherelle Moran RN) 2139 (Given - Provider: Cherelle Moran RN) sacubitril-valsartan (ENTRESTO) 24-26 MG per tablet 1 tablet 1 tablet, Oral, EVERY 12 HOURS, First dose on Becky 12/24/24 at 0900, Until Discontinued 820 (Given - Provider: Elroy Dumont RN)2130 (Given - Provider: Cherelle Moran RN) 0832 (Given - Provider: Elroy Dumont RN)2139 (Given - Provider: Cherelle Moran RN) 0946 (Given - Provider: Nae Valadez RN) Sodium chloride 0.9% IV solution 1,000 mL (COMPLETED) 1,000 mL, Intravenous, at 100 mL/hr, ONCE, 1 dose, On [facility] 01/09/25 at 1045, Fluid Bolus 1212 ($$New Bag$$ - Provider: Elroy Dumont RN)1704 (Rate/Dose Verify - Provider: Elroy Dumont RN)1718 (Paused - Provider: Elroy Dumont RN)1723 (Restarted - Provider: Elroy Dumont RN)1809 (Rate/Dose Verify - Provider: Elroy Dumont RN)1918 (Rate/Dose Verify - Provider: Cherelle Moran RN)1924 (Rate/Dose Verify - Provider: Cherelle Moran RN) 0719 (Stopped - Provider: Elroy Dumont RN) Sodium chloride 0.9% IV solution 1,000 mL (COMPLETED) 1,000 mL, Intravenous, at 100 mL/hr, ONCE, 1 dose, On 01/09/25 at 1945, Fluid Bolus 1924 ($$New Bag$$ - Provider: Cherelle Moran RN)2145 (Paused - Provider: Cherelle Moran RN)2148 (Restarted - Provider: Cherelle Moran RN)2236 (Rate/Dose Verify - Provider: Cherelle Moran RN) 0015 (Rate/Dose Verify - Provider: Cherelle Moran RN)0229 (Rate/Dose Verify - Provider: Cherelle Moran RN)0257 (Paused - Provider: Cherelle Moran RN)0300 (Restarted - Provider: Cherelle Moran RN)0306 (Rate/Dose Verify - Provider: Cherelle Moran RN)0534 (Stopped - Provider: Cherelle Moran RN - Comment: completed) Sodium chloride 0.9% IV solution 1,000 mL (COMPLETED) 1,000 mL, Intravenous, at 100 mL/hr, ONCE, 1 dose, On 01/10/25 at 0945, Fluid Bolus 1039 ($$New Bag$$ - Provider: Elroy Dumont RN)1551 (Rate/Dose Verify - Provider: Elroy Dumont RN) Sodium chloride 0.9% IV solution 500 mL (COMPLETED) 500 mL, Intravenous, at 100 mL/hr, ONCE, 1 dose, On 01/10/25 at 2345, Fluid Bolus 2323 ($$New Bag$$ - Provider: Cherelle Moran RN) 0120 (Rate/Dose Verify - Provider: Cherelle Moran RN)0239 (Rate/Dose Verify - Provider: Cherelle Moran RN)0336 (Rate/Dose Verify - Provider: Cherelle Moran RN)0429 (Stopped - Provider: Cherelle Moran RN) Spironolactone (ALDACTONE) tablet 25 mg 25 mg, Oral, DAILY, First dose on Becky 12/24/24 at 0900, Until Discontinued, Max 400 mg/day. Swallow tablet whole; do not crush, split or chew. Contact pharmacy if alternate route or dose is needed. 0821 (Given - Provider: Elroy Dumont RN) 0828 (Given - Provider: Elroy Dumont RN) 0946 (Given - Provider: Nae Valadez RN) Continuous Medication Order 01/09/2025 01/10/2025 01/11/2025 Sodium chloride 0.9% IV solution Intravenous, at 100 mL/hr, CONTINUOUS, Starting on Sat01/08/25 at 0600, Until Sat01/11/25 at 1813, Continue for additional 500 cc PRN Medication Order 01/09/2025 01/10/2025 01/11/2025 Acetaminophen (TYLENOL) tablet 650 mg 650 mg, Oral, EVERY 6 HOURS NEEDED, Starting on Sat12/23/24 at 2338, Until Sat01/11/25 at 1813, Mild Pain, Oral temp > 100.4 F, Maximum dose of acetaminophen is 4000 mg from all sources in 24 hours. alum/mag hydrox.-simethicone oral suspension 30 mL 30 mL, Oral, EVERY 6 HOURS NEEDED, Starting on Sat12/23/24 at 2338, Until Sat01/11/25 at 181, Indigestion, Per 5 mL is equivalent to: (Alum-Mag Hydroxide 200-225 mg and Simethicone 20 mg) and (Alum-Mag Hydroxide 200-200 mg and Simethicone 20 mg) Dextrose 50% injection 7.5-25 g(Linked Group 3) 7.5-25 g, Intravenous, ADMINISTER DIRECTED, Starting on Sat12/29/24 at 0740, Until Sat01/11/25 at 1813, Blood glucose <80 mg/dL, For patients who are not alert, are NPO, or are on IV insulin infusion administer as directed per Hypoglycemia in Non- Adults Clinical Practice Guideline. For Blood Glucose: 60-79 mg/dL administer 7.5 gm (15ml); 45-59 mg/dL administer 12.5 gm (25ml); less than 45mg/dL administer 25gm (50ml). ++ If additional dextrose 50% needed, contact pharmacy or obtain from crash cart ++ diphenhydrAMINE (BENADRYL) tablet 25 mg 25 mg, Oral, EVERY 6 HOURS NEEDED, Starting on Sat01/02/25 at 2153, Until Sat01/11/25 at 1813, Itching, Use as 2nd line therapy for itching 2325 (Given - Provider: Cherelle Luisa, RN) glucose (GLUTOSE) 40 % oral gel 1-2 Tube(Linked Group 3) 1-2 Tube, Oral, ADMINISTER DIRECTED, Starting on Sat12/29/24 at 0740, Until Sat01/11/25 at 181, Blood glucose <80 mg/dL, For patients who are alert, able to tolerate PO intake and with intact cognitive status administer as directed per Hypoglycemia in Non- Adults Clinical Practice Guideline. For Blood Glucose: 60-79 mg/dL administer 1 tube; 45-59 mg/dl administer 1.5 tubes; less than 45 mg/dL administer 2 tubes. Each tube of 37.5g delivers 15g of carbohydrate. hydrOXYzine hcl (ATARAX) tablet 10 mg 10 mg, Oral, 3 TIMES DAILY NEEDED, Starting on Sat01/03/25 at 0936, Until Sat01/11/25 at 181, Anxiety, Itching Insulin lispro (HUMALOG) injection(Linked Group 3) Subcutaneous, NEEDED, Starting on Sat12/29/24 at 0740, Until Sat01/11/25 at 181, Other, As needed for snacks, Insulin to carb ratio: Non-Standard: 1 unit insulin = 2 grams carbs Correction Factor: not to be used with this order. Kwikpen: Prime pen before each injection; refer to Pen Priming and Care Handout for further details. Warning! Confirm patient. Insulin pen is for labeled individual patient use ONLY. magnesium oxide (MAG-OX) tablet 800 mg 800 mg, Oral, ADMINISTER DIRECTED, Starting on Sat12/23/24 at 2338, Until Sat01/11/25 at 1813, See admin instructions, For Magnesium 1.6 - 2.0, give 800 mg of Magnesium oxide 0624 (Given - Provider: Cherelle Moran RN) Magnesium sulfate 4 g in sterile water 50 ml premix IVPB 4 g, Intravenous, Administer over 4 Hours, ADMINISTER DIRECTED, Starting on Sat12/23/24 at 2338, Until Sat01/11/25 at 181, Other, Magnesium Replacement Therapy, If Magnesium less than 1.6, give 4 g Magnesium Sulfate IVPB over 4 hours (may give over 1 hour if arrhythmias present). nystatin (NYSTOP;MYCOSTATIN) powder 1 Application 1 Application, Topical, 2 TIMES DAILY NEEDED, Starting on Sat01/06/25 at 0730, Until Sat01/11/25 at 1813, Other, lower abdomen, Apply to lower abdomen Ondansetron (ZOFRAN-ODT) disintegrating tablet 4 mg(Linked Group 4) 4 mg, Oral, EVERY 6 HOURS NEEDED, Starting on Sat12/24/24 at 0012, Until Sat01/11/25 at 1813, Nausea / Vomiting Ondansetron 4mg/2ml (ZOFRAN) injection 4 mg(Linked Group 4) 4 mg, Intravenous, EVERY 6 HOURS NEEDED, Starting on Sat12/24/24 at 0012, Until Sat01/11/25 at 1813, Refractory Nausea Vomiting oxyCODONE (ROXICODONE) tablet 5 mg 5 mg, Oral, EVERY 6 HOURS NEEDED, Starting on Sat12/30/24 at 0936, Until Sat01/11/25 at 181, Moderate Pain Polyethylene glycol (MIRALAX) packet 17 g 17 g, Oral, DAILY NEEDED, Starting on Sat12/23/24 at 2338, Until Sat01/11/25 at 181, Constipation 1st Line Potassium chloride (K-DUR) tablet ER 20 mEq 20 mEq, Oral, ADMINISTER DIRECTED, Starting on Sat12/23/24 at 2338, Until Sat01/11/25 at 181, See admin instructions, If Cr 2.0 - 2.5 mg/dL For Potassium less than 3.6, give 20 mEq Potassium Chloride orally, recheck in AM. If Cr greater than 2.5 mg/dL contact physician/LIP for Potassium less than 3.6 for replacement orders. If potassium is low please administer magnesium first if indicated Potassium chloride (K-DUR) tablet ER 40-60 mEq 40-60 mEq, Oral, ADMINISTER DIRECTED, Starting on Sat12/23/24 at 2338, Until Sat01/11/25 at 1813, See admin instructions, If Cr less than 2.0 mg/dL 1. For Potassium 3.6 - 4.0, give 40 mEq of Potassium Chloride orally, recheck in the AM. 2. For Potassium less than 3.6, give 60 mEq Potassium Chloride orally, recheck in 8 hours. 3. If potassium is low please administer magnesium first if indicated. 0625 (Given - Provider: Cherelle Moran RN) Senna (SENOKOT) tablet 8.6 mg 8.6 mg, Oral, EVERY 12 HOURS NEEDED, Starting on Becky 12/24/24 at 0014, Until Sat01/11/25 at 1813, Constipation 1st Line 2158 (Given - Provider: Cherelle Moran RN) Sodium chloride 0.9% IV solution 250 mL Intravenous, at 20 mL/hr, NEEDED, Starting on 12/23/24 at 2338, Until Sat01/11/25 at 1813, Carrier Fluid - See Admin. Inst, 250mL 0.9NS to be used as carrier fluid for intermittent small volume or piggyback medication administration as needed. Infusion rate of the carrier fluid should be set at 20 mL/hr unless the rate as the intermittent medication is less than 20 mL/hr. For intermittent medications with a rate less than 20 mL/hr set the carrier fluid at that rate of the intermittent or piggy back medication. traMADol (ULTRAM) tablet 50 mg 50 mg, Oral, EVERY 12 HOURS NEEDED, Starting on Becky 01/07/25 at 0920, Until Sat01/11/25 at 1813, Moderate Pain traZODone (DESYREL) tablet 50 mg 50 mg, Oral, DAILY AT BEDTIME NEEDED, Starting on 01/02/25 at 1009, Until Sat01/11/25 at 1813, Sleep 2329 (Given - Provider: Cherelle Moran RN) Linked Groups Order Group 1: Enoxaparin Sodium (LOVENOX) injection 40 mgJump to med 40 mg, Subcutaneous, DAILY, First dose (after last modification) on 01/09/25 at 1100, Until Discontinued, For SUBCUTANEOUS route ONLY: alternate injection sites between left and right abdominal wall, pinching location and avoiding area around navel. If unable to use abdominal sites, may use the front or side of thighs., Indications: DVT/PE prophylaxis Group 2: insulin glargine-yfgn (SEMGLEE) injection 50 UnitsJump to med 50 Units, Subcutaneous, EVERY 12 HOURS NON-STANDARD, First dose (after last modification) on Sat12/30/24 at 2200, Until Discontinued, Do not mix in syringe with other insulins. And NOTIFY PHYSICIAN, OTHER (CANCELED) Routine, CONTINUOUS, Starting on 12/30/24 at 1113, Until Specified, Who to Notify: Ceo And President, Call Ceo And President if a.m. Glucose is less than 80 and dose reduction not already ordered. Group 3: Insulin lispro (HUMALOG) injectionJump to med Subcutaneous, 4 TIMES DAILY WITH MEALS & AT BEDTIME, First dose (after last modification) on Sat12/29/24 at 0800, Until Discontinued, Insulin to carb ratio: Non-Standard: 1 unit insulin = 2 grams carbs every meal and at bedtime Correction Factor: 150-175 = 3 unit 176-200 = 6 units 201-225 = 9 units 226-250 = 12 units 251-275 = 15 units 276-300 = 18 units 301-325 = 21 units 326-350 = 24 units 351- 375 = 27 units 376-400 = 30 units Kwikpen: Prime pen before each injection; refer to Pen Priming and Care Handout for further details. Warning! Confirm patient. Insulin pen is for labeled individual patient use ONLY. And Insulin lispro (HUMALOG) injectionJump to med Subcutaneous, NEEDED, Starting on Sat12/29/24 at 0740, Until Sat01/11/25 at 1813, Other, As needed for snacks, Insulin to carb ratio: Non-Standard: 1 unit insulin = 2 grams carbs Correction Factor: not to be used with this order. Kwikpen: Prime pen before each injection; refer to Pen Priming and Care Handout for further details. Warning! Confirm patient. Insulin pen is for labeled individual patient use ONLY. And BLOOD GLUCOSE (POC DEVICE) (CANCELED) Routine, 4 TIMES DAILY BEFORE MEALS & AT BEDTIME, First occurrence on Sat12/29/24 at 0745, If any Blood Glucose (POC) is greater than 300mg/dl, then repeat Blood Glucose (POC) in 2 hours. If the initial blood glucose was greater than 300mg/dl and if second blood glucose is greater than 200md/dl, then notify Ceo And President. And BLOOD GLUCOSE (POC DEVICE) (CANCELED) Routine, DIRECTED, Starting on Sat12/29/24 at 0740, Until Specified, For all Blood Glucose LESS THAN 80 mg/dL, treat per Hypoglycemia in Non- Adults Clinical Practice Guideline (CPG) and recheck glucose 15 min after treatment. Repeat per CPG until glucose GREATER THAN 80 mg/dL. Once glucose IS GREATER THAN 80 mg/dL, recheck Blood Glucose every 1 hour x2, then resume as previously ordered. For Blood Glucose LESS THAN 80 mg/dL on admission OR LESS than 45 mg/dL at any time, obtain POC Blood Glucose every 4 hours for 6 occurrences AFTER treating per CPG. Obtain blood glucose for symptoms of hypoglycemia: sweating, shaking, fatigue, rapid pulse, slow thinking & dizziness. Notify physician w/results. Obtain blood glucose for symptoms of hyperglycemia: excessive thirst, blurred vision, excessive urination & tiredness. Notify physician w/results. If patient NPO, obtain POC Blood Glucose prior to administration of any insulin products. And COMMUNICATION ORDER FOR NURSING CARE: For Blood Glucose LESS THAN 80 mg/dl (CANCELED) Routine, CONTINUOUS, Starting on Sat12/29/24 at 0741, Until Specified, For Blood Glucose LESS THAN 80 mg/dl follow Hypoglycemia in Non- Adults Clinical Practice Guideline (CPG) And Dextrose 50% injection 7.5-25 gJump to med 7.5-25 g, Intravenous, ADMINISTER DIRECTED, Starting on Sat12/29/24 at 0740, Until Sat01/11/25 at 1813, Blood glucose <80 mg/dL, For patients who are not alert, are NPO, or are on IV insulin infusion administer as directed per Hypoglycemia in Non- Adults Clinical Practice Guideline. For Blood Glucose: 60-79 mg/dL administer 7.5 gm (15ml); 45-59 mg/dL administer 12.5 gm (25ml); less than 45mg/dL administer 25gm (50ml). ++ If additional dextrose 50% needed, contact pharmacy or obtain from crash cart ++ And glucose (GLUTOSE) 40 % oral gel 1-2 TubeJump to med 1-2 Tube, Oral, ADMINISTER DIRECTED, Starting on Sat12/29/24 at 0740, Until Sat01/11/25 at 1813, Blood glucose <80 mg/dL, For patients who are alert, able to tolerate PO intake and with intact cognitive status administer as directed per Hypoglycemia in Non- Adults Clinical Practice Guideline. For Blood Glucose: 60-79 mg/dL administer 1 tube; 45-59 mg/dl administer 1.5 tubes; less than 45 mg/dL administer 2 tubes. Each tube of 37.5g delivers 15g of carbohydrate. And NOTIFY PHYSICIAN, Blood Glucose LESS THAN 80 mg/dl (CANCELED) Routine, CONTINUOUS, Starting on Sat12/29/24 at 0741, Until Specified, Who to Notify: Ceo And President, For all Blood Glucose LESS THAN 80 mg/dl, notify Ceo And President after treatment per Hypoglycemia in Non- Adults Clinical Practice Guideline And Carbohydrate counts with meals (CANCELED) Routine, CONTINUOUS, Starting on Sat12/29/24 at 0741, Until Specified, Carbohydrate counts are to be done after each patient meal and with snack. Group 4: Ondansetron (ZOFRAN-ODT) disintegrating tablet 4 mgJump to med 4 mg, Oral, EVERY 6 HOURS NEEDED, Starting on Becky 12/24/24 at 0012, Until 01/11/25 at 1813, Nausea / Vomiting Or Ondansetron 4mg/2ml (ZOFRAN) injection 4 mgJump to med 4 mg, Intravenous, EVERY 6 HOURS NEEDED, Starting on Becky 12/24/24 at 0012, Until 01/11/25 at 1813, Refractory Nausea Vomiting FOR RECORDS PERTAINING TO PATIENTS WHO ARE [...] BE BASED ON THE PRIMARY CLINICAL RECORDS. [facility]. provides no warranty or guarantee of the accuracy or completeness of information in this document."
== END | disposition home or self-care (01) ==
LOC: CVS 09:49
PROVIDERS: PCP Internal Medicine; Referring Provider Physician Assistant Medical; Visit Provider Physician Assistant Medical
DX: I42.0 Dilated cardiomyopathy (principal)
CPT/HCPCS: 93306; Q9957; A4216; C8929

== ENCOUNTER → 2025-05-05 | Outpatient (CLI) | payer MEDICAID, SELFPAY ==
--- NOTE | 2025-05-05 11:07 | RAD_ITS ---
PROCEDURE: LUMBAR SPINE 2 OR 3 VIEWS 05/05/2025 REASON FOR EXAM: BACK PAIN TECHNIQUE: Procedure Code: RADSPLL Modality: DX Procedure: LUMBAR SPINE 2 OR 3 VIEWS COMPARISON: CT from 11/20/2024 FINDINGS: Vertebrae: No demonstrated fracture or suspicious osseous lesion Discs: Disc space narrowing throughout the lumbar spine Alignment: Alignment is anatomic. No pars defect or spondylolisthesis Other: Prevertebral soft tissues are unremarkable RAD/Lumbar Spine 2 or 3 Views IMPRESSION: Age consistent degenerative changes, no acute findings Reading Location: [id number]
[2025-05-05 12:18] LABS: Hematocrit 35.4 % (37-47); Hemoglobin 11.2 g/dL (12.0-15.0); Immature Granulocytes Count 0.040 X10^3/uL (0.0-0.0); Mean Corp Hgb Conc 31.6 g/dL (32-36); Mean Corpuscular Volume 83.3 fL (81-99); Mean Platelet Vol. 10.5 fl (6.2-12.0); NRBC Flagged by Analyzer 0 % (0-5); Platelet Count 202 K/mm3 (150-450); RBC Distribution Width CV 16.8 % (11.6-14.6); RBC Distribution Width SD 50.2 fl (35.1-43.9); Red Blood Count 4.25 M/mm3 (4.2-5.4); White Blood Count 6.7 K/mm3 (4.4-11.0)
[2025-05-05 12:58] LABS: Cholesterol 143 mg/dL (<=200); Low Density Lipoprotein Calc. 80 mg/dL; Triglycerides 129 mg/dL; Very Low Density Lipoprotein 26 mg/dL (5-40); cholesterol:hdl ratio screen 3.59
[2025-05-05 13:06] LABS: Free T3 2.9 pg/mL (2.18-3.98)
[2025-05-05 13:15] LABS: Ferritin 16 ng/mL (22-378); Iron 32 ug/dL (50-170); Iron Binding Capacity,Total 423 ug/dL (250-450); Iron Binding Capacity,Unsat 391 ug/dL (228-428); Vitamin D,25 Hydroxy 51.9 ng/mL (30-100)
[2025-05-05 13:34] LABS: AST(SGOT) 19 U/L (<=31); Alanine Aminotransfer ALT/SGPT 17 U/L (<=34); Albumin, Serum 3.7 g/dL (3.5-5.0); Alkaline Phosphatase 190 U/L (35-104); Anion Gap 10 (5-15); BUN 16 mg/dL (4-19); BUN/Creat Ratio 16.7 RATIO (10-20); Calcium,Total 9.4 mg/dL (7.6-11.0); Carbon Dioxide 25.2 mmol/L (21.0-32.0); Chloride 100 mmol/L (98-108); Globulin 3.5 g/dL (2.2-4.2); Glucose 476 mg/dL (70-99); Potassium 5.0 mmol/L (3.3-5.1)
== END | disposition home or self-care (01) ==
LOC: LAB 10:50
PROVIDERS: Nurse Practitioner Family; PCP Internal Medicine; Referring Provider Physician Assistant; Visit Provider Physician Assistant
DX: D64.9 Anemia, unspecified (principal); E11.40 Type 2 diabetes mellitus with diabetic neuropathy, unspecified; Z79.4 Long term (current) use of insulin; E55.9 Vitamin D deficiency, unspecified; I10 Essential (primary) hypertension; E78.49 Other hyperlipidemia; R94.6 Abnormal results of thyroid function studies; M54.50 Low back pain, unspecified
CPT/HCPCS: 36415; 72100; 80053; 80061; 82306; 82728; 83540; 83550; 84439; 84443; 84481; 85025

== ENCOUNTER → 2025-06-18 | Outpatient (CLI) | payer MEDICAID, SELFPAY ==
--- NOTE | 2025-06-18 15:00 | RAD_ITS ---
PROCEDURE: CHEST PA AND LATERAL 06/18/2025 REASON FOR EXAM: SOB TECHNIQUE: Procedure Code: RADCXR Modality: DX Procedure: CHEST PA AND LATERAL COMPARISON: Reviewed FINDINGS: Heart size normal. Lungs clear. RAD/Chest PA and Lateral IMPRESSION: NEGATIVE CHEST Reading Location: [facility]
[2025-06-18 15:44] LABS: Hematocrit 38.3 % (37-47); Hemoglobin 12.2 g/dL (12.0-15.0); Immature Granulocytes Count 0.050 X10^3/uL (0.0-0.0); Mean Corp Hgb Conc 31.9 g/dL (32-36); Mean Corpuscular Volume 88.5 fL (81-99); Mean Platelet Vol. 10.7 fl (6.2-12.0); NRBC Flagged by Analyzer 0 % (0-5); Platelet Count 198 K/mm3 (150-450); RBC Distribution Width CV 18.1 % (11.6-14.6); RBC Distribution Width SD 58.9 fl (35.1-43.9); Red Blood Count 4.33 M/mm3 (4.2-5.4); White Blood Count 8.4 K/mm3 (4.4-11.0)
[2025-06-18 16:15] LABS: Anion Gap 14 (5-15); BUN 13 mg/dL (4-19); BUN/Creat Ratio 14.1 RATIO (10-20); Calcium,Total 9.7 mg/dL (7.6-11.0); Carbon Dioxide 23.7 mmol/L (21.0-32.0); Chloride 97 mmol/L (98-108); Glucose 391 mg/dL (70-99); Potassium 4.4 mmol/L (3.3-5.1); Pro- Brain NATRIURETIC PEPTIDE 164 pg/mL (<=900)
== END | disposition home or self-care (01) ==
PROVIDERS: PCP Internal Medicine; Referring Provider Physician Assistant Medical; Visit Provider Physician Assistant Medical
DX: I10 Essential (primary) hypertension (principal); E11.40 Type 2 diabetes mellitus with diabetic neuropathy, unspecified; Z79.4 Long term (current) use of insulin; R06.02 Shortness of breath
CPT/HCPCS: 36415; 71046; 80048; 83880; 85025